=== PATIENT | male | born 1950 | race Caucasian/White ===

== ENCOUNTER 2023-05-20 09:28 | Outpatient (OUT) | payer MEDICARE, OTHER, SELFPAY ==
[2023-05-20 09:55] LABS: Hematocrit 43.8 % (42.0-54.0); Hemoglobin 14.2 g/dL (14.0-18.0)
[2023-05-20 10:40] LABS: Bilirubin Urine NEGATIVE (NEGATIVE); Blood Urine NEGATIVE (NEGATIVE); Clarity Urine CLEAR (CLEAR); Color Urine LT. YELLOW (YELLOW); Glucose Urine UA NEGATIVE (NEGATIVE); Ketones Urine NEGATIVE (NEGATIVE); Leukocyte Esterase Urine NEGATIVE (NEGATIVE); Nitrite Urine NEGATIVE (NEGATIVE); Protein Urine NEGATIVE (NEG/TRACE); Specific Gravity Urine 1.015 (1.005-1.025); Urobilinogen Urine 0.2 EU/dL (0.2-1.0); pH Urine 5.5 (5.0-9.0)
[2023-05-20 10:42] LABS: Creatinine Urine Random 32.91 mg/dL (20.00-300.00); Protein Creatinine Ratio Urine 0.18; Total Protein Urine Random <6.0 mg/dL (<=11.9)
[2023-05-20 10:47] LABS: Alanine Aminotransferase 24 U/L (16-63); Albumin Globulin Ratio 0.9; Albumin Level 3.8 g/dL (3.4-5.0); Alkaline Phosphatase 117 U/L (46-116); Aspartate Amino Transferase 23 U/L (15-37); BUN Creatinine Ratio 19.2; Bilirubin Total 0.9 mg/dL (0.2-1.0); Calcium 9.3 mg/dL (8.5-10.1); Carbon Dioxide 30.3 mmol/L (21.0-32.0); Chloride 100 mmol/L (98-107); Estimated GFR (African America 25 (>=60); Estimated GFR (Non-African Ame 21 (>=60); Globulin 4.2 g/dL; Glucose 129 mg/dL (74-106); Magnesium 2.7 mg/dL (1.8-2.4); Phosphorus 3.7 mg/dL (2.6-4.7); Potassium 4.3 mmol/L (3.5-5.1); Sodium 135 mmol/L (136-145)
== END 2023-05-20 09:29 | disposition home or self-care (01) ==
LOC: LAB 09:34
PROVIDERS: PCP Family Medicine; Visit Provider Internal Medicine Nephrology
DX: I13.0 Hypertensive heart and chronic kidney disease with heart failure and stage 1 through stage 4 chronic kidney disease, or unspecified chronic kidney disease (principal); N18.4 Chronic kidney disease, stage 4 (severe); I50.20 Unspecified systolic (congestive) heart failure; Z95.0 Presence of cardiac pacemaker; E55.9 Vitamin D deficiency, unspecified; E21.3 Hyperparathyroidism, unspecified; E79.0 Hyperuricemia without signs of inflammatory arthritis and tophaceous disease; N28.1 Cyst of kidney, acquired
CPT/HCPCS: 36415; 80053; 81003; 82306; 82570; 83735; 84100; 84156; 84550; 85014; 85018

== ENCOUNTER 2023-08-14 09:30 | Outpatient (OUT) | payer MEDICARE, OTHER, SELFPAY ==
[2023-08-14 10:39] LABS: Hematocrit 43.5 % (42.0-54.0); Hemoglobin 13.8 g/dL (14.0-18.0); Mean Corpuscular HGB Conc 31.7 g/dL (29.9-35.2); Mean Corpuscular Hemoglobin 29.2 pg (25.9-34.0); Mean Corpuscular Volume 92.2 fL (80.0-94.0); Mean Platelet Volume 9.8 fL (9.5-13.5); Platelet Count 175 10^3/uL (150-450); Red Blood Count 4.72 10^6/uL (4.70-6.10); Red Cell Distribution Width 15.6 % (11.0-15.0); White Blood Count 7.2 10^3/uL (4.0-11.0)
[2023-08-14 10:43] LABS: Bilirubin Urine NEGATIVE (NEGATIVE); Blood Urine NEGATIVE (NEGATIVE); Clarity Urine CLEAR (CLEAR); Color Urine YELLOW (YELLOW); Glucose Urine UA NEGATIVE (NEGATIVE); Ketones Urine NEGATIVE (NEGATIVE); Leukocyte Esterase Urine NEGATIVE (NEGATIVE); Nitrite Urine NEGATIVE (NEGATIVE); Protein Urine NEGATIVE (NEG/TRACE); pH Urine 5.5 (5.0-9.0)
[2023-08-14 10:52] LABS: Creatinine Urine Random 118.89 mg/dL (20.00-300.00); Protein Creatinine Ratio Urine 0.17; Total Protein Urine Random 20.2 mg/dL (<=11.9)
[2023-08-14 11:51] LABS: Alanine Aminotransferase 20 U/L (16-63); Albumin Globulin Ratio 0.9; Albumin Level 3.7 g/dL (3.4-5.0); Alkaline Phosphatase 115 U/L (46-116); Anion Gap 10.9; Aspartate Amino Transferase 20 U/L (15-37); BUN Creatinine Ratio 21.4; Bilirubin Total 1.1 mg/dL (0.2-1.0); Calcium 9.3 mg/dL (8.5-10.1); Carbon Dioxide 29.6 mmol/L (21.0-32.0); Chloride 100 mmol/L (98-107); Estimated GFR (African America 31 (>=60); Estimated GFR (Non-African Ame 25 (>=60); Globulin 4.2 g/dL; Glucose 118 mg/dL (74-106); Magnesium 2.6 mg/dL (1.8-2.4); Phosphorus 3.8 mg/dL (2.6-4.7); Potassium 4.5 mmol/L (3.5-5.1); Sodium 136 mmol/L (136-145); Total Protein 7.9 g/dL (6.4-8.2); Uric Acid 7.7 mg/dL (3.5-7.2)
[2023-08-15 11:09] LABS: PTH, Intact 50 pg/mL (15-65)
--- OUTSIDE RECORDS SUMMARY | 2023-08-27 03:02 | XMS_ITS | CCD ---
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 Orchestra Teacher Name Role Phone ZULMAANNELIESED Admitting Unavailable CULLEN COSTA Primary Care Unavailable LI CINTRON V Referring Unavailable DILLAN HARDY Attending Unavailable CULLEN COSTA Primary Care Unavailable CULLEN COSTA Referring Unavailable LI CINTRON V Admitting Unavailable LI CINTRON V Attending Unavailable SELF, REFERRED Primary Care Unavailable SELF, REFERRED Referring Unavailable FLOR BIGGS Admitting Unavailable CYRUS ASHLEY Attending Unavailable MD Cullen Costa Primary Care Provider [phone] DO Balwinder Chavarria Emergency Provider Cullen Theodore Primary Care Unavailable Balwinder Chavarria Attending Unavailable Balwinder Chavarria Admitting Unavailable Dedra Mendoza Unavailable DEDRA MENDOZA Attending Unavailable DEDRA MENDOZA Admitting Unavailable IGOR, DR CULLEN Felton Primary Care Unavailable SATURNINO, DR ZE Moraes Consulting Unavailable DEDRA MENDOZA Consulting Unavailable RIAZ, DR JEFFERSON Attending Unavailable RIAZ, DR JEFFERSON Admitting Unavailable IGOR, DR CULLEN Felton Primary Care Unavailable CYNTHIA PALMA Attending Unavailable CYNTHIA PALMA Admitting Unavailable IGOR, DR CULLEN Felton Primary Care Unavailable CYNTHIA PALMA Consulting Unavailable GAGE SIMPSON Attending Unavailable GAGE SIMPSON Admitting Unavailable IGOR, DR CULLEN Felton Primary Care Unavailable GAGE SIMPSON Consulting Unavailable LANA, DR CAASS Attending Unavailable LANA, DR CASAS Admitting Unavailable IGOR, DR CULLEN Felton Primary Care Unavailable LANA, DR CASAS Consulting Unavailable HARRIS, DR TIGIST Pendleton Attending Unavailable DR TIGIST IGLESIAS Admitting Unavailable SELENA ., DR JACOBO Procedure Practitioner Unavail able COSTA, DR CULLEN Felton Primary Care Unavailable HOY ., DR JACOBO Consulting Unavailable WEST, DR ZE Moraes Consulting Unavailable ZIEBER, DR CARSON Ace Consulting Unavailable NADEREDb, DR TIGIST Pendleton Consulting Unavailable HAY ., DR CHI Consulting Unavailable RAFAEL, SUNSHINE Consulting Unavailable REINECK, DR DELBERT Brown Attending Unavailabl e REINECK, DR DELBERT Brown Admitting Unavailabl e REINECK, DR DELBERT Brown Consulting Unavailabl e COSTA, DR CULLEN Felton Primary Care Unavailable BUTCH ., EDWARD Consulting Unavailable JASON, ZE Consulting Unavailable HIGHLANDER, MIS Dye Admitting Unavailable HIGHLANDER, MIS Dye Attending Unavailable COSTA, DR CULLEN Felton Primary Care Unavailable HIGHLANDER, MIS Dye Attending Unavailable HIGHLANDER, MIS Dye Admitting Unavailable COSTA, DR CULLEN Felton Primary Care Unavailable HIGHLANDER, MIS Dye Attending Unavailable HIGHLANDERMIS Admitting Unavailable COSTA, DR CULLEN Felton Primary Care Unavailable CLOUGHERTYSHANNAN Admitting Unavailabl e COSTA, DR CULLEN Felton Primary Care Unavailable CLOUGHERTYSHANNAN Attending Unavailabl e CLOUGHERTY, SAHNNAN Kaur Attending Unavailabl e CLOUGHERTYSHANNAN O Admitting Unavailabl e COSTA, DR UCLLEN Felton Primary Care Unavailable HIGHLANDER, MIS Dye Admitting Unavailable HIGHLANDER, MIS Dye Attending Unavailable COSTA, DR CULLEN Felton Primary Care Unavailable HIGHLANDER, MIS Dye Admitting Unavailable HIGHLANDER, MIS Dye Attending Unavailable COSTA, DR CULLEN Felton Primary Care Unavailable VIOLETA VILLAREAL Admitting Unavailable KATDAVIS, VIOLETA Dye Attending Unavailable ZIENIO, DR CARSON Ace Consulting Unavailable COSTA, DR CULLEN Felton Primary Care Unavailable KATKOVIOLETA Consulting Unavailable MOUKARBEL, DR JEFFERSON Attending Unavailable COSTA, DR CULLEN Felton Primary Care Unavailable MOUKARBEL, DR JEFFERSON Consulting Unavailable MOUKARBEL, DR JEFFERSON Admitting Unavailable MOUKARBEL, DR JEFFERSON Consulting Unavailable COSTA, DR CULLEN Felton Primary Care Unavailable MOUKARBEL, DR JEFFERSON Admitting Unavailable MOUKARBEL, DR JEFFERSON Attending Unavailable PAY ., DR ECHEVARRIA Admitting Unavailable ZIEBER, DR CARSON Ace Consulting Unavailable COSTA, DR CULLEN Felton Primary Care Unavailable PAY ., DR ECHEVARRIA Attending Unavailable BUTCH ., EDWARD Consulting Unavailable NEFCY, MIS Consulting Unavailable JAMESEREDb, DR TIGIST Pendleton Attending Unavailable NADEREDb, DR TIGIST Pendleton Admitting Unavailable COSTA, DR CULLEN Felton Primary Care Unavailable HARRIS, DR TIGIST Pendleton Consulting Unavailable INDIALANTIC ., DR CHI Consulting Unavailable [facility], MIS Consulting Unavailable TIFFANIE SALGADO Consulting Unavailable WEST [place], DR ZE Moraes Attending Unavailable WEST [place], DR ZE Moraes Admitting Unavailable [facility] MEDIEROS Primary Care Unavailable EMETERIO, MIS Dye Attending Unavailable MIS STORM Admitting Unavailable IGOR, DR CULLEN Felton Primary Care Unavailable DEDRA MENDOZA Attending Unavailable DEDRA MENDOZA Admitting Unavailable DEDRA MENDOZA Consulting Unavailable IGOR, DR CULLEN Felton Primary Care Unavailable Cullen Costa Unavailable GAGE SIMPSON Referring Unavailable DIOGO NGUYEN Attending Unavailable GAGE SIMPSON Referring Unavailable LI CINTRON Attending Unavailable PHILIP ANDRE Attending Unavailable Allergies Allergy Classification Reported Allergen(s) Allergy Type Date of Onset Reaction(s) Facility (3 sources) patient allergy list reviewed by nurse or physicia Propensity to adverse reactions Comment:Done [employer] Other (3 sources) Allergies Reconciled Propensity to adverse reactions Unknown [employer] Other Medications Current Medications Medication Drug Class(es) Dates Sig (Normalized) Sig (Original) allopurinol 100 mg oral tablet (2 sources) Xanthine Oxidase Inhibitor Start: 05-27-2023 take 1 tablet by mouth every twenty-four hours Allopurinol 100 MG 1 tablet Orally Once a day for 90 days May, Active amiodarone hydrochloride 200 mg oral tablet (6 sources) Antiarrhythmic Start: 06-27-2022 take 200 mg by mouth once daily Amiodarone Active 200 MG PO Daily June 27, 2022 12:00am apixaban 5 mg oral tablet (6 sources) Factor Xa Inhibitor Start: 06-27-2022 take 1 tablet by mouth twice daily Apixaban (Eliquis) 5 mg Tablet Active 5 MG PO Twice daily June 27, 2022 12:00am Aspir-81 81 MG (5 sources) take 1 tablet by mouth once daily Aspir-81 81 MG 1 tablet Orally Once a day Active atorvastatin 80 mg oral tablet (6 sources) HMG-CoA Reductase Inhibitor Start: 06-27-2022 take 80 mg by mouth once daily at bedtime Atorvastatin Active 80 MG PO Daily at bedtime June 27, 2022 12:00am bumetanide 2 mg oral tablet (6 sources) Loop Diuretic Start: 06-27-2022 take 1 tablet by mouth twice daily Bumetanide (Bumex) 2 mg Tablet Active 3 MG PO Twice daily June 27, 2022 12:00am take 3 tablets by mo [facility] every twelve hours Bumetanide 1 MG 3 tablet Orally TWICE A DAY Active Cholecalciferol (4 sources) Vitamin D Start: 12-10-2022 take 1 capsule by mouth once daily Cholecalciferol 25 MCG (1000 UT) 1 capsule Orally Once a day for 90 days Dec, Active take 1 capsule by mouth once [place] [place] Cholecalciferol 25 MCG (1000 UT) 1 capsule Orally Once a day for 90 days Active docusate sodium 100 mg oral tablet (2 sources) Start: 06-27-2022 take 100 mg by mouth three times daily Docusate Sodium Active 100 MG PO Three times daily June 27, 2022 12:00am take 1 capsule by [facility] every twenty-four hours Colace 100 MG 1 capsule as needed Orally Once a day Active doxycycline hyclate 100 mg oral capsule (1 source) Tetracycline-class Drug Start: 06-27-2022 take 100 mg by mouth twice daily Doxycycline Hyclate Active 100 MG PO Twice daily 27 06June 27, 2022 12:00am hydrALAZINE hydrochloride 10 mg oral tablet (6 sources) Arteriolar Vasodilator Start: 06-27-2022 take 10 mg by mouth three times daily Hydralazine Active 10 MG PO Three times daily June 27, 2022 12:00am take 1 tablet by [place] every twelve hours hydrALAZINE HCl 10 MG 1 tablet with food Orally Twice a day Active isosorbide dinitrate 10 mg oral tablet (8 sources) Nitrate Vasodilator Start: 06-27-2022 take 10 mg by mouth three times daily Isosorbide Dinitrate Active 10 MG PO Three times daily June 27, 2022 12:00am allow nitrate-free interval of 12-14 hrs per 24-hr period 24 hr metoprolol succinate 50 mg extended release oral tablet (6 sources) beta-Adrenergic Demarco Start: 06-27-2022 take 25 mg by mouth once daily Metoprolol Succinate Active 25 MG PO Daily June 27, 2022 12:00am take 0.5 tablet by mouth once da michael Metoprolol Succinate ER 25 MG TAKE 1/2 TABLET BY MOUTH ONCE DAILY for 90 Active potassium chloride 20 meq extended release oral tablet (5 sources) take 1 tablet by mouth every twenty-four hours Potassium Chloride ER 20 MEQ 1 tablet with food Orally Once a day for 90 days Active spironolactone 25 mg oral tablet (6 sources) Aldosterone Antagonist Start: take 25 mg by mouth once daily Spironolactone Active 25 MG PO Daily June 27, 2022 12:00am Problems Active Problems Problem Classification Problem Date Documented Da te Episodic/Chronic Cardiac dysrhythmias (6 sources) Paroxysmal atrial fibrillation; Translations: [Paroxysmal atrial fibrillation] Onset: 07-18-2022 Chronic Chronic kidney disease (16 sources) Chronic kidney disease stage 4; Translations: [Chronic kidney disease, stage 4 (severe)] Onset: 04-26-2022 Chronic Chronic kidney disease (1 source) Chronic kidney disease; Translations: [CHRONIC KIDNEY DISEASE STAGE 3B] Onset: 12-21-2021 Chronic ulcer of skin (2 sources) 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; Translations: [Non-pressure chronic ulcer of right calf limited to breakdown of skin] Onset: 01-04-2022 Chronic Complication of device; implant or graft (2 sources) Atherosclerosis of coronary artery bypass graft(s) without angina pectoris; Translations: [Atherosclerosis of coronary artery bypass graft(s) without angina pectoris] Onset: 08-28-2022 Chronic Conduction disorders (16 sources) Cardiac pacemaker in situ; Translations: [Presence of cardiac pacemaker] Onset: 11-18-2022 Chronic Congestive heart failure; nonhypertensive (20 sources) Congestive heart failure; Translations: [Unspecified systolic (congestive) heart failure] Onset: 12-21-2021 Chronic Coronary atherosclerosis and other heart disease (8 sources) Atherosclerotic heart disease of [place] coronary artery without angina pectoris; Translations: [Atherosclerosis of coronary artery without angina pectoris] Onset: 07-18-2022 Chronic Disorders of lipid metabolism (5 sources) Pure hypercholesterolemia, unspecified; Translations: [Hyperlipidemia, unspecified] Onset: 05-06-2013 Chronic Essential hypertension (14 sources) Essential hypertension; Translations: [Essential (primary) hypertension] Onset: 01-04-2022 Chronic Gout and other crystal arthropathies (4 sources) Gout, unspecified; Translations: [Primary gout] Onset: 05-09-2016 Chronic Headache; including migraine (1 source) Headache; including migraine; Translations: [HEADACHE UNSPECIFIED] Onset: 04-04-2022 Hypertension with complications and secondary hypertension (7 sources) Hypertensive heart and chronic kidney disease with heart failure and stage 1 through stage 4 chronic kidney disease, or unspecified chronic kidney disease; Translations: [Hypertensive chronic kidney disease with stage 1 through stage 4 chronic kidney disease, or unspecified chronic kidney disease] Onset: 03-17-2022 Chronic Mycoses (3 sources) Candidiasis of skin and nails; Translations: [Candidiasis of skin and nail] Episodic Nutritional deficiencies (6 sources) Vitamin D deficiency; Translations: [Vitamin D deficiency, unspecified] Chronic Open wounds of extremities (4 sources) Unspecified open wound, left lower leg, sequela; Translations: [Open wound of knee and/or leg and/or ankle] Onset: 04-12-2022 Episodic Other circulatory disease (3 sources) Elevated blood-pressure reading without diagnosis of hypertension; Translations: [Elevated blood-pressure reading, without diagnosis of hypertension] Episodic Other diseases of kidney and ureters (3 sources) Cyst of kidney, acquired; Translations: [CYST OF KIDNEY ACQUIRED] Onset: 11-30-2022 Episodic Other diseases of veins and lymphatics (1 source) Lymphedema, not elsewhere classified; Translations: [LYMPHEDEMA NOT ELSEWHERE CLASSIFIED] Onset: 04-12-2022 Chronic Other diseases of veins and lymphatics (5 sources) 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; Translations: [CHRON VENOUS HTN W/ULCER RT LW EXT] Onset: 01-21-2022 Chronic Other diseases of veins and lymphatics (3 sources) Lymphedema; Translations: [Lymphedema, not elsewhere classified] Chronic Other diseases of veins and lymphatics (5 sources) Peripheral venous insufficiency; Translations: [Venous insufficiency (chronic) (peripheral)] Episodic Other endocrine disorders (4 sources) Hyperparathyroidism; Translations: [Hyperparathyroidism, unspecified] Chronic Other endocrine disorders (2 sources) Hyperparathyroidism, unspecified Chronic Other inflammatory condition of skin (1 source) Erythematous condition, unspecified; Translations: [Erythematous condition, unspecified] Onset: 06-27-2022 Episodic Other nutritional; endocrine; and metabolic disorders (5 sources) Morbid obesity; Translations: [Morbid (severe) obesity due to excess calories] Chronic Other nutritional; endocrine; and metabolic disorders (1 source) Morbid (severe) obesity due to excess calories; Translations: [MORBID SEVERE OBES D/T EXCESS KELLY] Onset: 04-04-2022 Chronic Other nutritional; endocrine; and metabolic disorders (1 source) Body mass index (BMI) 45.0-49.9, adult; Translations: [BODY MASS INDEX BMI 45.0-49.9 ADULT] Onset: 12-21-2021 Chronic Other nutritional; endocrine; and metabolic disorders (6 sources) Body mass index 40+ - severely obese; Translations: [Body mass index (BMI) 40.0-44.9, adult] Chronic Other nutritional; endocrine; and metabolic disorders (2 sources) Hyperuricemia without signs of inflammatory arthritis and tophaceous disease Episodic Phlebitis; thrombophlebitis and thromboembolism (1 source) Chronic embolism and thrombosis of right femoral vein; Translations: [CHRON EMBO THROMB RT FEMORAL VEIN] Onset: 12-21-2021 Chronic Phlebitis; thrombophlebitis and thromboembolism (5 sources) Acute embolism and thrombosis of unspecified deep veins of right lower extremity; Translations: [Personal history of other venous thrombosis and embolism] Onset: 01-21-2022 Episodic Residual codes; unclassified (3 sources) Tobacco user; Translations: [Tobacco use] Episodic Residual codes; unclassified (3 sources) Edema; Translations: [Edema] Episodic Septicemia (except in labor) (3 sources) Sepsis due to Pseudomonas; Translations: [Sepsis due to Pseudomonas] Episodic Skin and subcutaneous tissue infections (12 sources) Cellulitis; Translations: [Cellulitis, unspecified] Onset: 12-13-2021 06-27-2022 Episodic Unclassified (1 source) CONTACT W/AND (SUSP) EXPOS COVID-19; Translations: [CONTACT W/AND (SUSP) EXPOS COVID-19] Onset: 07-18-2022 Unclassified (1 source) CHRN KIDNEY DISEASE STG 3 UNSP; Translations: [CHRN KIDNEY DISEASE STG 3 UNSP] Onset: 01-29-2022 Varicose veins of lower extremity (8 sources) Pain co-occurrent and due to varicose veins of bilateral legs; Translations: [Varicose veins of bilateral lower extremities with pain] Onset: 03-08-2015 Episodic Past or Other Problems Problem Classification Problem Date Documented Da te Episodic/Chronic Acute and unspecified renal failure (1 source) Acute kidney failure, unspecified; Translations: [ACUTE KIDNEY FAILURE UNSPECIFIED] Onset: 12-21-2021 Episodic Bacterial infection; unspecified site (2 sources) Bacteremia; Translations: [Pseudomonas (aeruginosa) (mallei) (pseudomallei) as the cause of diseases classified elsewhere] Onset: 12-21-2021 Episodic Coronary atherosclerosis and other heart disease (1 source) Presence of aortocoronary bypass graft; Translations: [PRESENCE AORTOCORONARY BYPASS GRAFT] Onset: 07-18-2022 Episodic E Codes: Fall (1 source) Fall on same level, unspecified, initial encounter; Translations: [FALL SAME LEVEL UNSPECIFIED INITIAL] Onset: 04-04-2022 Episodic Fluid and electrolyte disorders (1 source) Dehydration; Translations: [DEHYDRATION] Onset: 07-18-2022 Episodic Malaise and fatigue (4 sources) Weakness; Translations: [WEAKNESS] Onset: 04-01-2022 Episodic Other aftercare (1 source) 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; Translations: [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 CURRENT USE OF ASPIRIN] Onset: 07-18-2022 Episodic Other aftercare (1 source) Other extermination supervisor (current) drug therapy; Translations: [OTH JAIL CURRENT DRUG THERAPY] Onset: 07-18-2022 Episodic Other aftercare (1 source) assistant terminal manager (current) use of anticoagulants; Translations: [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 CURRNT USE ANTICOAGULANTS] Onset: 04-26-2022 Episodic Other connective tissue disease (4 sources) Other specified soft tissue disorders; Translations: [Other specified soft tissue disorders] Onset: 04-24-2022 Episodic Other diseases of veins and lymphatics (1 source) Venous insufficiency (chronic) (peripheral); Translations: [VENOUS INSUFF CHRONIC PERIPHERAL] Onset: 04-12-2022 Episodic Other lower respiratory disease (4 sources) Shortness of breath; Translations: [SHORTNESS OF BREATH] Onset: 04-04-2022 Episodic Other skin disorders (5 sources) Other specified disorders of the skin and subcutaneous tissue; Translations: [OTH SPEC D/O SKIN AND SUBQ TISSUE] Onset: 03-17-2022 Episodic Other skin disorders (1 source) Disorder of the skin and subcutaneous tissue, unspecified; Translations: [DISORDER SKIN AND SUBQ TISSUE UNS] Onset: 03-17-2022 Episodic Residual codes; unclassified (1 source) Generalized edema; Translations: [GENERALIZED EDEMA] Onset: 04-12-2022 Episodic Residual codes; unclassified (4 sources) Edema, unspecified; Translations: [EDEMA UNSPECIFIED] Onset: 04-02-2022 Episodic Residual codes; unclassified (1 source) Localized edema; Translations: [LOCALIZED EDEMA] Onset: 01-21-2022 Episodic Superficial injury; contusion (1 source) Blister (nonthermal), right lower leg, initial encounter; Translations: [BLISTER NONTHERMAL RT LOW LEG INIT] Onset: 01-29-2022 Episodic Results Test Name Value Interpretation Reference Range Facil ity Office Visiton 05-07-2023 Follow-up visit [id number] Man Patel 1950 M Date Provider Department Center 05/07/[address] [facility] Family History Problem Relation Age of Onset Coronary artery disease Mother Hyperlipidemia Mother Hypertension Mother Stroke Mother Diabetes Mother Coronary artery disease Father Hyperlipidemia Father Hypertension Father Family Status - Relation Status Age at Mother Father Level of Service:71581 NM OFFICE/OUTPATIENT ESTABLISHED MOD MDM 30-39 MIN Normal [facility] PTH INTACTon 12-04-2022 PTH, Intact 66 pg/mL Critically high 15-65 [facility] Comment on above: Performed By: #### P THINT ####[facility] [address] [place] [address]DrLatoya Anthony HEMOGRAM AND PLATELon 2022 Hematocrit (Bld) [Volume fraction] 43.4 % Normal 4 2.0-54.0 [facility] Comment on above: Performed By: #### H H ####[facility] [address] [place] [address]DrLatoya Anthony Hemoglobin (Bld) [Mass/Vol] 14.1 g/dL Normal 14.0-18. 0 [facility] Comment on above: Performed By: #### H H ####[facility] [address] [place] [address]DrLatoya Anthony MCH (RBC) [Entitic mass] 28.2 pg Normal 25.9-34.0 [facility] Comment on above: Performed By: #### H H ####[facility] [address] [place] [address]Dr. Elba Anthony MCHC (RBC) [Mass/Vol] 32.5 g/dL Normal 29.9-35.2 [facility] Comment on above: Performed By: #### H H ####[facility] [address] [place], [place] [address]Dr. Elba Anthony MCV (RBC) [Entitic vol] 86.8 fL Normal 80.0-94.0 [facility] Comment on above: Performed By: #### H H ####[facility] [address] [place], [place] [address]Dr. Elba Anthony PLT 170 103/ul Normal 150-450 [facility] Comment on above: Performed By: #### H H ####[facility] [address] [place], [place] [address]Dr. Elba Anthony RBC 5.00 106/ul Normal 4.70-6.10 [facility] Comment on above: Performed By: #### H H ####[facility] [address] [place], [place] [address]Dr. Elba Anthony WBC 7.2 103/ul Normal 4.0-11.0 [facility] Comment on above: Performed By: #### H H ####[facility] [address] [place], [place] [address]Dr. Elba Anthony MAGNESIUMon 12-03-2022 Magnesium [Mass/Vol] 2.6 mg/dL Critically high 1.8-2.4 [facility] Comment on above: Performed By: #### C MP, URIC, PHOS, MG ####[facility] [address] [place], [place] [address]Dr. Elba Anthony PHOSPHORUSon 12-03-2022 Phosphate [Mass/Vol] 3.9 mg/dL Normal 2.6-4.7 [facility] Comment on above: Performed By: #### C MP, URIC, PHOS, MG ####[facility] [address] [place] [address]Dr. Elba Anthony PROF 14(COMP METB)on 023 Albumin [Mass/Vol] 4.0 g/dL Normal 3.4-5.0 [facility] Comment on above: Performed By: #### C MP, URIC, PHOS, MG ####[facility] [address] [place] [address]Dr. Elba Anthony Albumin/Globulin [Mass ratio] 0.9 {ratio} Normal [facility] Comment on above: Performed By: #### C MP, URIC, PHOS, MG ####[facility] [address] [place] [address]Dr. Elba Anthony ALP [Catalytic activity/Vol] 159 U/L Critically high 46 -116 [facility] Comment on above: Performed By: #### C MP, URIC, PHOS, MG ####[facility] [address] [place], [place] [address]Dr. Elba Anthony ALT [Catalytic activity/Vol] 33 U/L Normal 16-63 [facility] Comment on above: Performed By: #### C MP, URIC, PHOS, MG ####[facility] [address] [place] [address]Dr. Elba Anthony Anion gap [Moles/Vol] 15.2 mmol/L Normal [facility] Comment on above: Performed By: #### C MP, URIC, PHOS, MG ####[facility] [address] [place] [address]Dr. Elba Anthony AST [Catalytic activity/Vol] 27 U/L Normal 15-37 [facility] Comment on above: Performed By: #### C MP, URIC, PHOS, MG ####[facility] [address] [place] [address]Dr. Elba Anthony Bilirubin [Mass/Vol] 0.9 mg/dL Normal 0.2-1.0 [facility] Comment on above: Performed By: #### C MP, URIC, PHOS, MG ####[facility] [address] [place] [address]Dr. Elba Anthony Calcium [Mass/Vol] 9.8 mg/dL Normal 8.5-10.1 [facility] Comment on above: Performed By: #### C MP, URIC, PHOS, MG ####[facility] [address] [place] [address]Dr. Elba Anthony Chloride [Moles/Vol] 102 mmol/L Normal 98-107 [facility] Comment on above: Performed By: #### C MP, URIC, PHOS, MG ####[facility] [address] [place] [address]Dr. Elba Anthony CO2 [Moles/Vol] 30.5 mmol/L Normal 21.0-32.0 [facility] Comment on above: Performed By: #### C MP, URIC, PHOS, MG ####[facility] [address] [place], [place] [address]Dr. Elba Anthony Creatinine [Mass/Vol] 2.63 mg/dL Critically high 0.70-1.30 [facility] Comment on above: Performed By: #### C MP, URIC, PHOS, MG ####[facility] [address] [place], [place] [address]Dr. Elba Anthony EGFR-AF CONGOLESE 29 mL/min/1.73m2 Critically low >=60 [facility] Comment on above: Performed By: #### C MP, URIC, PHOS, MG ####[facility] [facility] [address] [place], [place] [address]Dr. Elba Anthony EGFR-NON AF CONGOLESE 24 mL/min/1.73m2 Critically low >=60 [facility] Comment on above: Performed By: #### C MP, URIC, PHOS, MG ####[facility] Cxmvauqwva[address] [place], [place] [address]Dr. Elba Anthony Globulin (S) [Mass/Vol] 4.5 g/dL Normal [facility] Comment on above: Performed By: #### C MP, URIC, PHOS, MG ####[facility] Gxxkobexif[address] [place], [place] [address]Dr. Elba Anthony Glucose [Mass/Vol] 122 mg/dL Critically high 74-106 [facility] Comment on above: Performed By: #### C MP, URIC, PHOS, MG ####[facility] J[address]ixuc[address] [place] [address]Dr. Elba Anthony Potassium [Moles/Vol] 4.7 mmol/L Normal 3.5-5.1 [facility] Comment on above: Performed By: #### C MP, URIC, PHOS, MG ####[facility] Bbxzmtalhu[address] [place] [address]Dr. Elba Anthony Protein [Mass/Vol] 8.5 g/dL Critically high 6.4-8.2 [facility] Comment on above: Performed By: #### C MP, URIC, PHOS, MG ####[facility] Qgetntogoh[address] [place] [address]Dr. Elba Anthony Sodium [Moles/Vol] 143 mmol/L Normal 136-145 [facility] Comment on above: Performed By: #### C MP, URIC, PHOS, MG ####[facility] Budrwtkvso[address] [place] [address]Dr. Nereydasiobhan Anthony Urea nitrogen [Mass/Vol] 59.0 mg/dL Critically high 7.0-18 .0 [facility] Comment on above: Performed By: #### C MP, URIC, PHOS, MG ####[facility] Qsstnfnpig[address] [place] [address]Dr. Elba Anthony Urea nitrogen/Creatinine [Mass ratio] 22.4 mg/mg Normal [facility] Comment on above: Performed By: #### C MP, URIC, PHOS, MG ####[facility] Iouqoguztw[address] [place] [address]Dr. Elba Anthony UA RANDOMon 12-03-2022 Bilirubin Ql (U) Negative Normal NEGATIVE [facility] Comment on above: Performed By: #### U A ####[facility] Oxukddcogd4[address] [place] [address]Dr. Elba Anthony Clarity (U) CLEAR Normal CLEAR [facility] Comment on above: Performed By: #### U A ####[facility] Wvtvnzgrqd25[address] [place] [address]Dr. Elba Anthony Color (U) LT. YELLOW Normal YELLOW [facility] Comment on above: Performed By: #### U A ####[facility] Isnfmjumcw[address] [place], [place] [address]Dr. Elba Anthony Glucose Ql (U) Negative Normal NEGATIVE [facility] Comment on above: Performed By: #### U A ####[facility] Gabhdvseno[address] [place], [place] [address]Dr. Elba Anthony Hemoglobin Ql (U) Negative Normal NEGATIVE [facility] Comment on above: Performed By: #### U A ####[facility] Txoiwokfng[address] [place], [place] [address]Dr. Elba Anthony Ketones Ql (U) Negative Normal NEGATIVE [facility] Comment on above: Performed By: #### U A ####[facility] Voohadfmhn7035[address] [place], [place] [address]Dr. Elba Anthony LEUKOCYTES Negative Normal NEGATIVE [facility] Comment on above: Performed By: #### U A ####[facility] Jysogqcwgn0569[address] [place], [place] [address]Dr. Elba Anthony Nitrite Ql (U) Negative Normal NEGATIVE [facility] Comment on above: Performed By: #### U A ####[facility] Jqxxqydbpn098[address] [place], [place] [address]Dr. Elba Anthony pH (U) 7.0 [pH] Normal 5-9 [facility] Comment on above: Performed By: #### U A ####[facility] Bkkrylfzgm5264[address] [place], [place] [address]Dr. Elba Anthony SPEC GRAVITY <=1.005 Abnormal 1.005-<=1.025 [facility] Comment on above: Performed By: #### U A ####[facility] Zfuovucvad94[address] [place], [place] [address]Dr. Elba Anthony UA PROTEIN TRACE Normal NEGATIVE/ TRACE [facility] Comment on above: Performed By: #### U A ####[facility] Ddijhjgeyu17[address] [place] [address]Dr. Elba Anthony Urobilinogen Qn (U) 2.0 {Caden'U}/dL Abnormal 0.2 - 1. 0 [facility] Comment on above: Performed By: #### U A ####[facility] Lknoxqmmda7[address] [place] [address]Dr. Elba Anthony URIC ACID SERUMon 12-03-2022 Urate [Mass/Vol] 9.0 mg/dL Critically high 3.5-7.2 [facility] Comment on above: Performed By: #### C MP, URIC, PHOS, MG ####[facility] Pbbbqeqozm[address] [place], [place] [address]Dr. Elba Anthony URINE T PROTEIN CREAT RATIOo n 12-03-2022 Protein (U) [Mass/Vol] 26.9 mg/dL Critically high <=12.0 [facility] Comment on above: Performed By: #### U RTPCR ####[facility] Nmcmxemyvh1832[address] [place], [place] [address]Dr. Elba Anthony UR PROT CREAT RAT 0.33 Normal [facility] Comment on above: Performed By: #### U RTPCR ####[facility] Ngxpafucww160[address] [place], [place] [address]Dr. Elba Anthony URINE CREAT 82.74 mg/dL Normal 20.00-300.00 [facility] Comment on above: Performed By: #### U RTPCR ####[facility] Vbdimekhkc6911[address] [place], [place] [address]Dr. Elba Anthony VITAMIN D 25 OHon 12-03-2022 VIT D 25-OH 14.7 ng/mL Normal [facility] Comment on above: Performed By: #### V ITAD ####[facility] Pkhqpfdvob[address] [place], [place] [address]Dr. Elba Anthony VIT D RANGES SEE BELOW Normal [facility] Comment on above: Result Comment: <20 ng/mL Vit D deficient 20 - <30 ng/mL Vit D insufficient 30 - 100 ng/mL Vit D sufficient >100 ng/mL Potential Toxicity Performed By: #### V ITAD ####[facility] Mmbaoqtynv9[address] [place] [address]Dr. Elba Anthony US KIDNEYSon 11-27-2022 US KIDNEYS Normal [facility] Office Visiton 11-18-2022 Follow-up visit [id number] Man Patel 1950 [facility] Provider Department Center 11/18/[address] [facility] Family History Problem Relation Age of Onset Coronary artery disease Mother Hyperlipidemia Mother Hypertension Mother Stroke Mother Diabetes Mother Coronary artery disease Father Hyperlipidemia Father Hypertension Father Family Status - Relation Status Age at Mother Father Level of Service:49917 NM OFFICE/OUTPATIENT ESTABLISHED LOW MDM 20-29 MIN Reason for Visit and Comments: Congestive Heart Failure [127] Atrial Fibrillation [80] Normal [facility] Office Visiton 08-26-2022 Follow-up visit [id number] Man Patel 1950 [facility] Provider Department Center 08/26/[address] [facility] Family History Problem Relation Age of Onset Coronary artery disease Mother Hyperlipidemia Mother Hypertension Mother Stroke Mother Diabetes Mother Coronary artery disease Father Hyperlipidemia Father Hypertension Father Family Status - Relation Status Age at Mother Father Level of Service:12215 NM OFFICE/OUTPATIENT ESTABLISHED MOD MDM 30-39 MIN Normal [facility] Orders Onlyon 08-07-2022 Orders Only [id number] Man Patel 1950 [facility] Provider Department Center 08/07/[address] [facility] Family History Problem Relation Age of Onset Coronary artery disease Mother Hyperlipidemia Mother Hypertension Mother Stroke Mother Diabetes Mother Coronary artery disease Father Hyperlipidemia Father Hypertension Father Family Status - Relation Status Age at Mother Father Normal [facility] PROF CHEM 8 (BAS METB)on Anion gap [Moles/Vol] 11.1 mmol/L Normal [facility] Comment on above: Performed By: #### B MP ####[facility] Wgxrmtmtnd30[address] [place] [address]DrLatoya Anthony Calcium [Mass/Vol] 9.0 mg/dL Normal 8.5-10.1 [facility] Comment on above: Performed By: #### B MP ####[facility] Wfamfoxudb3236 [place] [address]Dr. Nereydasiobhan Raj Chloride [Moles/Vol] 99 mmol/L Normal 98-107 [facility] Comment on above: Performed By: #### B MP ####[facility] Spsoodoumn5[address] [place], [place] [address]Dr. Elba Anthony CO2 [Moles/Vol] 30.3 mmol/L Normal 21.0-32.0 [facility] Comment on above: Performed By: #### B MP ####[facility] Gdrpsfcqxx23[address] [place], [place] [address]Dr. Nereydasiobhan Raj Creatinine [Mass/Vol] 2.43 mg/dL Critically high 0.70-1.30 [facility] Comment on above: Performed By: #### B MP ####[facility] Wscbrhfopx[address] [place], [place] [address]Dr. Nereydasiobhan Raj EGFR-AF CONGOLESE 32 mL/min/1.73m2 Critically low >=60 [facility] Comment on above: Performed By: #### B MP ####[facility] Teyofdxclz[address] [place], [place] [address]Dr. Nereydasiobhan Raj EGFR-NON AF CONGOLESE 27 mL/min/1.73m2 Critically low >=60 [facility] Comment on above: Performed By: #### B MP ####[facility] Dkaldhqjch6[address] [place], [place] [address]Dr. Elba Anthony Glucose [Mass/Vol] 142 mg/dL Critically high 74-106 [facility] Comment on above: Performed By: #### B MP ####[facility] Dgtsjvbhnf[address] [place], [place] [address]Dr. Elba Anthony Potassium [Moles/Vol] 4.4 mmol/L Normal 3.5-5.1 [facility] Comment on above: Performed By: #### B MP ####[facility] Ghycimxlbv[address] [place], [place] [address]Dr. Elba Anthony Sodium [Moles/Vol] 136 mmol/L Normal 136-145 [facility] Comment on above: Performed By: #### B MP ####[facility] Bnxemyxtuf73[address] [place] [address]Dr. Elba Anthony Urea nitrogen [Mass/Vol] 60.0 mg/dL Critically high 7.0-18 .0 [facility] Comment on above: Performed By: #### B MP ####[facility] Bvjqqrtstj[address] [place], [place] [address]Dr. Elba Anthony Urea nitrogen/Creatinine [Mass ratio] 24.7 mg/mg Normal [facility] Comment on above: Performed By: #### B MP ####[facility] Kdoxurvule87[address] [place], [place] [address]Dr. Elba Anthony CBC AUTO DIFFon 07-11-2022 BASO # 0.1 103/ul Normal 0.0-0.1 [facility] Comment on above: Performed By: #### C BC ####[facility] Llnkkandin[address] [place], [place] [address]Dr. Elba Anthony Basophils/100 WBC (Bld) 0.8 % Normal 0.2-2.0 [facility] Comment on above: Performed By: #### C BC ####[facility] Cbigjaiyay6[address] [place], [place] [address]Dr. Elba Anthony EO # 0.9 103/ul Critically high 0.0-0.7 [facility] Comment on above: Performed By: #### C BC ####[facility] Ncisfxwfmv24[address] [place], [place] [address]Dr. Elba Anthony Eosinophils/100 WBC (Bld) 13.7 % Critically high 0.9-7 .0 [facility] Comment on above: Performed By: #### C BC ####[facility] Ibhuzrbsnb[address] [place], [place] [address]Dr. Elba Anthony Erythrocyte distribution wid th (RBC) [Ratio] 20.8 % Critically high 11.0-15.0 [facility] Comment on above: Performed By: #### C BC ####[facility] Yaibqtrtzp4[address] [place] [address]Dr. Elba Anthony Hematocrit (Bld) [Volume fraction] 35.3 % Critically low 42.0-54.0 [facility] Comment on above: Performed By: #### C BC ####[facility] Cmdjsnkyog6418 [place] [address]Dr. Elba Anthony Hemoglobin (Bld) [Mass/Vol] 11.5 g/dL Critically low 14.0 -18.0 [facility] Comment on above: Performed By: #### C BC ####[facility] Oitjvacyzo[address] [place], [place] [address]Dr. Nereydasiobhan Anthony IG # 0.04 10e3/ul Critically high 0.00-0.03 [facility] Comment on above: Performed By: #### C BC ####[facility] Kztcyrnhsl470[address] [place], [place] [address]Dr. Elba Anthony IG % 0.6 % Critically high 0.0-0.5 [facility] Comment on above: Performed By: #### C BC ####[facility] Ycqdpzunoe8[address] [place], [place] [address]Dr. Elba Anthony LYMPH # 1.1 103/ul Critically low 1.2-3.8 [facility] Comment on above: Performed By: #### C BC ####[facility] Edaltccvud[address]99 [place] [address]Dr. Elba Anthony Lymphocytes/100 WBC (Bld) 17.2 % Critically low 20.5-6 0.0 [facility] Comment on above: Performed By: #### C BC ####[facility] Gdbuntneas7432 [place] [address]Dr. Nereydasiobhan Anthony MANUAL DIFF REQ NO Normal [facility] Comment on above: Performed By: #### C BC ####[facility] Wjsemysiva97[address] [place], [place] [address]Dr. Elba Anthony MCH (RBC) [Entitic mass] 27.9 pg Normal 25.9-34.0 [facility] Comment on above: Performed By: #### C BC ####[facility] Lozfuzjdif[address] [place] [address]Dr. Elba Anthony MCHC (RBC) [Mass/Vol] 32.6 g/dL Normal 29.9-35.2 [facility] Comment on above: Performed By: #### C BC ####[facility] [address]fqwucjx[address] [place], [place] [address]Dr. Elba Anthony MCV (RBC) [Entitic vol] 85.7 fL Normal 80.0-94.0 [facility] Comment on above: Performed By: #### C BC ####[facility] Evznlsyami[address] [place], [place] [address]Dr. Elba Anthony MONO # 0.8 103/ul Normal 0.3-0.8 [facility] Comment on above: Performed By: #### C BC ####[facility] Gmjulnqjgo037[address] [place], [place] [address]Dr. Nereydasiobhan Anthony Monocytes/100 WBC (Bld) 13.0 % Critically high 1.7-12. 0 [facility] Comment on above: Performed By: #### C BC ####[facility] Waapzskfke[address] [place], [place] [address]Dr. Elba Anthony NEUT # 3.4 103/ul Normal 1.4-6.5 [facility] Comment on above: Performed By: #### C BC ####[facility] Jcglrokmcx4[address] [place], [place] [address]Dr. Elba Anthony Neutrophils/100 WBC (Bld) 54.7 % Normal 43.0-75.0 [facility] Comment on above: Performed By: #### C BC ####[facility] Sjcpwgniaa[address] [place], [place] [address]Dr. Elba Anthony Platelet mean volume (Bld) [Entitic vol] 9.5 fL Normal 9.5-13.5 [facility] Comment on above: Performed By: #### C BC ####[facility] Jkhprdlumy[address] [place], [place] [address]Dr. Elba Raj PLT 206 103/ul Normal 150-450 [facility] Comment on above: Performed By: #### C BC ####[facility] Hdfwdxtfbu4[address] [place], [place] [address]Tt. Elba Anthony RBC 4.12 106/ul Critically low 4.70-6.10 [facility] Comment on above: Performed By: #### C BC ####[facility] Miyksnrnyy0571 [place] [address]Dr. Elba Anthony WBC 6.2 103/ul Normal 4.0-11.0 [facility] Comment on above: Performed By: #### C BC ####[facility] Iemrzfbtuf3223 [place] [address]Dr. Elba Anthony PROF CHEM 8 (BAS METB)on Anion gap [Moles/Vol] 10.9 mmol/L Normal [facility] Comment on above: Performed By: #### B MP ####[facility] Fjuhamaryo1756 [place] [address]Dr. Elba Anthony Calcium [Mass/Vol] 8.9 mg/dL Normal 8.5-10.1 [facility] Comment on above: Performed By: #### B MP ####[facility] Ypljbiwllf2833 [place] [address]Dr. Elba Anthony Chloride [Moles/Vol] 103 mmol/L Normal 98-107 [facility] Comment on above: Performed By: #### B MP ####[facility] Ppuiyizglw8201 [place] [address]Dr. Elba Anthony CO2 [Moles/Vol] 31.0 mmol/L Normal 21.0-32.0 [facility] Comment on above: Performed By: #### B MP ####[facility] Kpmbbtedwa8886 [place] [address]Dr. Elba Anthony Creatinine [Mass/Vol] 2.18 mg/dL Critically high 0.70-1.30 [facility] Comment on above: Performed By: #### B MP ####[facility] Qmqpirxfzv5758 [place] [address]Dr. Elba Anthony EGFR-AF CONGOLESE 36 mL/min/1.73m2 Critically low >=60 [facility] Comment on above: Performed By: #### B MP ####[facility] Cfsalsgkpw0937 [place] [address]Dr. Elba Anthony EGFR-NON AF CONGOLESE 30 mL/min/1.73m2 Critically low >=60 [facility] Comment on above: Performed By: #### B MP ####[facility] Uzzuxsurhy84[address] [place] [address]Dr. Elba Anthony Glucose [Mass/Vol] 99 mg/dL Normal 74-106 [facility] Comment on above: Performed By: #### B MP ####[facility] Rqmgmcgzhh0441 [place] [address]Dr. Elba Anthony Potassium [Moles/Vol] 3.9 mmol/L Normal 3.5-5.1 [facility] Comment on above: Performed By: #### B MP ####[facility] Glfqnazwha[address] [place], [place] [address]Dr. Elba Anthony Sodium [Moles/Vol] 141 mmol/L Normal 136-145 [facility] Comment on above: Performed By: #### B MP ####[facility] Pmkinqqypg1838 [place] [address]Dr. Elba Anthony Urea nitrogen [Mass/Vol] 40.0 mg/dL Critically high 7.0-18 .0 [facility] Comment on above: Performed By: #### B MP ####[facility] Wjsxnuswvi6360 [place] [address]Dr. Elba Anthony Urea nitrogen/Creatinine [Mass ratio] 18.3 mg/mg Normal [facility] Comment on above: Performed By: #### B MP ####[facility] Yrlhfrrjgd1651 [place] [address]Dr. Elba Anthony XR CHEST 2 Von 07-11-2022 XR CHEST 2 V Normal [facility] BNPon 07-10-2022 Natriuretic peptide B (Bld) [Mass/Vol] 2542.0 pg/mL Critically high <=900.0 [facility] spital Comment on above: Performed By: #### H STROPN, BNP, CMP ####[facility] Rzpozoufbc1898 [place] [address]Dr. Elba Anthony CARDIAC FADY 3-6on 2 CK [Catalytic activity/Vol] 40 U/L Normal 39-308 [facility] Comment on above: Performed By: #### C MREP ####[facility] Vugowloqwv[address] [place], [place] [address]Eo. Elba Anthony CK.MB [Mass/Vol] 0.92 ng/mL Normal <=3.60 [facility] Comment on above: Performed By: #### C MREP ####[facility] Yyozymmbna7313 [place] [address]Dr. Elba Anthony HSTROP 49.6 pg/mL Normal 4.0-76.1 [facility] Comment on above: Result Comment: CUT- OFF POINTS HAVE BEEN ESTABLISHED BASED ON THE FOURTH UNIVERSAL DEFINITIONS OF MYOCARDIALINFARCTION. THE UPPER REFERENCE LIMIT (URL) OF TROPONIN, DEFINED THE 99TH PERCENTILE OFcTnI DISTRIBUTION IN A REFERENCE POPULATION, HAS BEEN CONFIRMED THE DECISION THRESHOLDFOR VA DIAGNOSIS. Performed By: #### C MREP ####[facility] Bjaokrowsy[address] [place], [place] [address]Dr. Elba Anthony CK [Catalytic activity/Vol] 39 U/L Normal 39-308 [facility] Comment on above: Performed By: #### C MREP ####[facility] Wuprrrtkay3450 [place] [address]Dr. Elba Anthony CK.MB [Mass/Vol] 0.76 ng/mL Normal <=3.60 [facility] Comment on above: Performed By: #### C MREP ####[facility] Asmqfztlyz[address] [place], [place] [address]Dr. Elba Anthony HSTROP 47.3 pg/mL Normal 4.0-76.1 [facility] Comment on above: Result Comment: CUT- OFF POINTS HAVE BEEN ESTABLISHED BASED ON THE FOURTH UNIVERSAL DEFINITIONS OF MYOCARDIALINFARCTION. THE UPPER REFERENCE LIMIT (URL) OF TROPONIN, DEFINED THE 99TH PERCENTILE OFcTnI DISTRIBUTION IN A REFERENCE POPULATION, HAS BEEN CONFIRMED THE DECISION THRESHOLDFOR VA DIAGNOSIS. Performed By: #### C MREP ####[facility] Rhvqnteoao8[address] [place] [address]Dr. Elba Anthony CBC AUTO DIFFon 07-10-2022 BASO # 0.1 103/ul Normal 0.0-0.1 [facility] Comment on above: Performed By: #### C BC ####[facility] Askzrmbfsb[address] [place], [place] [address]Dr. Elba Anthony Basophils/100 WBC (Bld) 1.1 % Normal 0.2-2.0 [facility] Comment on above: Performed By: #### C BC ####[facility] Swcqnecozo99[address] [place], [place] [address]Dr. Elba Anthony EO # 0.6 103/ul Normal 0.0-0.7 [facility] Comment on above: Performed By: #### C BC ####[facility] Ohpiyciqoe5[address] [place], [place] [address]Dr. Elba Anthony Eosinophils/100 WBC (Bld) 8.9 % Critically high 0.9-7 .0 [facility] Comment on above: Performed By: #### C BC ####[facility] Xigovdqaff[address] [place], [place] [address]Dr. Elba Raj Erythrocyte distribution wid th (RBC) [Ratio] 21.1 % Critically high 11.0-15.0 [facility] pital Comment on above: Performed By: #### C BC ####[facility] U[address]jkoojdzb64[address] [place], [place] [address]Dr. Elba Anthony Hematocrit (Bld) [Volume fraction] 39.1 % Critically low 42.0-54.0 [facility] Comment on above: Performed By: #### C BC ####[facility] Mevmgfvvhx[address] [place], [place] [address]Dr. Elba Anthony Hemoglobin (Bld) [Mass/Vol] 12.6 g/dL Critically low 14.0 -18.0 [facility] Comment on above: Performed By: #### C BC ####[facility] Oxvvbhdlgk[address] [place], [place] [address]Dr. Elba Anthony IG # 0.04 10e3/ul Critically high 0.00-0.03 [facility] Comment on above: Performed By: #### C BC ####[facility] Sdngrkgcqf0619 [place] [id number] Anthony IG % 0.6 % Critically high 0.0-0.5 [facility] Comment on above: Performed By: #### C BC ####[facility] Lsunwhsfjf[address] [place] [address]DrLatoya Anthony LYMPH # 0.9 103/ul Critically low 1.2-3.8 [facility] Comment on above: Performed By: #### C BC ####[facility] Kqdgyogtey2769 [place] [address]DrLatoya Anthony Lymphocytes/100 WBC (Bld) 13.8 % Critically low 20.5-6 0.0 [facility] Comment on above: Performed By: #### C BC ####[facility] Ubetwtwujq[address] [place], [place] [address]DrLatoya Anthony MANUAL DIFF REQ NO Normal [facility] Comment on above: Performed By: #### C BC ####[facility] D[address]rovjvrxe[address] [place], [place] [address]DrLatoya Anthony MCH (RBC) [Entitic mass] 27.5 pg Normal 25.9-34.0 [facility] Comment on above: Performed By: #### C BC ####[facility] Pmzdnrnwwh[address] [place], [place] [address]DrLatoya Anthony MCHC (RBC) [Mass/Vol] 32.2 g/dL Normal 29.9-35.2 [facility] Comment on above: Performed By: #### C BC ####[facility] [address]sw[address]gfkrxb[address] [address] [place], [place] [address]DrLatoya Anthony MCV (RBC) [Entitic vol] 85.2 fL Normal 80.0-94.0 [facility] Comment on above: Performed By: #### C BC ####[facility] Twdgomaxuf[address] [place], [place] [address]Dr. Elba Anthony MONO # 0.9 103/ul Critically high 0.3-0.8 The [facility] Comment on above: Performed By: #### C BC ####[facility] Arhgzkbjcr[address] [place], [place] [id number]. Elba Anthony Monocytes/100 WBC (Bld) 14.0 % Critically high 1.7-12. 0 [facility] Comment on above: Performed By: #### C BC ####[facility] Wclwzcayid7[address] [place], [place] [address]Dr. Elba Anthony NEUT # 4.1 103/ul Normal 1.4-6.5 The [facility] Comment on above: Performed By: #### C BC ####[facility] Ksmwywnglm[address] [place], [place] [address]Dr. Elba Anthony Neutrophils/100 WBC (Bld) 61.6 % Normal 43.0-75.0 [facility] Comment on above: Performed By: #### C BC ####[facility] Ddvyqgfndl[address] [place], [place] [address]Dr. Elba Anthony Platelet mean volume (Bld) [ Entitic vol] 10.1 fL Normal 9.5-13.5 The [facility] Comment on above: Performed By: #### C BC ####[facility] Ouqat[address]mjn[address] [place], [place] [address]Dr. Elba Anthony PLT 223 103/ul Normal 150-450 [facility] Comment on above: Performed By: #### C BC ####[facility] Ehjiuxkjxr[address] [place], [place] [address]Dr. Elba Anthony RBC 4.59 106/ul Critically low 4.70-6.10 The [facility] Comment on above: Performed By: #### C BC ####[facility] Qwjbyllkrb[address] [place], [place] [address]Dr. Elba Anthony WBC 6.7 103/ul Normal 4.0-11.0 [facility] Comment on above: Performed By: #### C BC ####[facility] Cvuzfgnwnh[address] [place], [place] [address]Dr. Elba Anthony Covid-19 PCR (CVDTBH)on SARS-CoV-2 (COVID-19) RNA ELIZABETH+probe Ql (Unsp spec) Not detected Normal NOT DETECTED The [facility] Comment on above: Result Comment: When diagnostic testing is negative, the possibility of a false negative should be considered inthe context of a patient's recent exposures and the presence of clinical signs and symptomsconsistent with SARS-CoV-2.This test is not yet approved or cleared by the [place] FDA. When there are no FDA-approved or cleared tests available, and other criteria are met, FDA can make tests available under an emergency access mechanism called an Emergency Use Authorization (EUA). The EUA for this test is supported by the Md Ophthalmologist of Health and Human Service's declaration that circumstances exist to justify the emergency use of in vitro diagnostics for the detection and/or diagnosis of the virus that causes COVID-19. This EUA will remain in effect for the duration of the COVID-19 declaration justifying emergency of IVDs, unless it is terminated or revoked by the FDA (after which the test may no longer be used). Performed By: #### C VDTBH ####[facility] Tpcqxreygg[address] [place], [place] [address]Dr. Elba Raj ER URINE PROFILEon 2 Bilirubin Ql (U) Negative Normal NEGATIVE [facility] Comment on above: Performed By: #### E RUR ####[facility] Luycccdmwv[address] [place], [place] [address]Dr. Elba Anthony Clarity (U) CLEAR Normal CLEAR [facility] Comment on above: Performed By: #### E RUR ####[facility] Jnsqrefxve256[address] [place], [place] [address]Dr. Elba Anthony Color (U) LT. YELLOW Normal YELLOW [facility] Comment on above: Performed By: #### E RUR ####[facility] Wzamiqrbga[address] [place], [place] [address]Dr. Elba Anthony ERUAHD A micrscopic examina tion will be performed if indicated. Normal The [facility] Comment on above: Performed By: #### E RUR ####[facility] [address] [place] [address]Dr. Elba Anthony Glucose Ql (U) Negative Normal NEGATIVE The [facility] Comment on above: Performed By: #### E RUR ####[facility] Tdupunjxaj399[address] [place], [place] [address]Dr. Elba Anthony Hemoglobin Ql (U) Negative Normal NEGATIVE The [facility] Comment on above: Performed By: #### E RUR ####[facility] Eqbooiwfqm0427[address] [place], [place] [address]Dr. Elba Anthony Ketones Ql (U) Negative Normal NEGATIVE [facility] Comment on above: Performed By: #### E RUR ####[facility] Wpyablkpne244[address] [place], [place] [address]Dr. Elba Anthony LEUKOCYTES Negative Normal NEGATIVE [facility] Comment on above: Performed By: #### E RUR ####[facility] Vuirxbrgcn040[address] [place], [place] [address]Dr. Elba Anthony Nitrite Ql (U) Negative Normal NEGATIVE [facility] Comment on above: Performed By: #### E RUR ####[facility] Nnbipumkgj963[address] [place], [place] [address]Dr. Elba Anthony pH (U) 7.0 [pH] Normal 5-9 The [facility] Comment on above: Performed By: #### E RUR ####[facility] Ukoqtatori07[address] [place], [place] [address]Dr. Elba Anthony SPEC GRAVITY 1.010 Normal 1.005-<=1.025 The [facility] Comment on above: Performed By: #### E RUR ####[facility] Gekvysuhmu[address] [place], [place] [address]Dr. Elba Anthony UA PROTEIN Negative Normal NEGATIVE/ TRACE The [facility] Comment on above: Performed By: #### E RUR ####[facility] Duhipoknfm[address] [place], [place] [address]Dr. Elba Anthony UR MICRO IND NOT INDICATED Normal The [facility] Comment on above: Performed By: #### E RUR ####[facility] Gyuicjqtyz[address] [place] [address]Dr. Elba Anthony Urobilinogen Qn (U) 0.2 {Caden'U}/dL Normal 0.2 - 1. 0 [facility] Comment on above: Performed By: #### E RUR ####[facility] Oujrsxijxo[address] [place] [address]Dr. Elba Anthony PROF 14(COMP METB)on 022 Albumin [Mass/Vol] 3.3 g/dL Critically low 3.4-5.0 [facility] Comment on above: Performed By: #### H STROPN, BNP, CMP ####[facility] Xpjmjwtvlp450[address] [place] [address]Dr. Elba Anthony Albumin/Globulin [Mass ratio] 0.8 {ratio} Normal [facility] Comment on above: Performed By: #### H STROPN, BNP, CMP ####[facility] Mmictjbttp[address] [place], [place] [address]Dr. Elba Anthony ALP [Catalytic activity/Vol] 114 U/L Normal 46-116 [facility] Comment on above: Performed By: #### H STROPN, BNP, CMP ####[facility] Jcrtbjutdz[address] [place], [place] [address]Dr. Elba Anthony ALT [Catalytic activity/Vol] 23 U/L Normal 16-63 [facility] Comment on above: Performed By: #### H STROPN, BNP, CMP ####[facility] Aaggozeesk[address] [place] [address]Dr. Elba Anthony Anion gap [Moles/Vol] 9.5 mmol/L Normal [facility] Comment on above: Performed By: #### H STROPN, BNP, CMP ####[facility] P[address]jmt[address] [place] [address]Dr. Elba Anthony AST [Catalytic activity/Vol] 32 U/L Normal 15-37 [facility] Comment on above: Performed By: #### H STROPN, BNP, CMP ####[facility] Ffcqitkvpl[address] [place] [address]Dr. Elba Anthony Bilirubin [Mass/Vol] 0.7 mg/dL Normal 0.2-1.0 [facility] Comment on above: Performed By: #### H STROPN, BNP, CMP ####[facility] Jdiuajfdah39[address] [place] [address]Dr. Elba Anthony Calcium [Mass/Vol] 9.1 mg/dL Normal 8.5-10.1 [facility] Comment on above: Performed By: #### H STROPN, BNP, CMP ####[facility] Zjtbgtudez[address] [place] [address]Dr. Elba Anthony Chloride [Moles/Vol] 99 mmol/L Normal 98-107 [facility] Comment on above: Performed By: #### H STROPN, BNP, CMP ####[facility] Zhjlcqebwe[address] [place], [place] [address]Dr. Elba Anthony CO2 [Moles/Vol] 33.2 mmol/L Critically high 21.0-32.0 [facility] Comment on above: Performed By: #### H STROPN, BNP, CMP ####[facility] Wtftbwbpji[address] [place], [place] [address]Dr. Elba Anthony Creatinine [Mass/Vol] 2.31 mg/dL Critically high 0.70-1.30 [facility] Comment on above: Performed By: #### H STROPN, BNP, CMP ####[facility] Zgvblwaufo[address] [place], [place] [address]Dr. Elba Anthony EGFR-AF CONGOLESE 34 mL/min/1.73m2 Critically low >=60 [facility] Comment on above: Performed By: #### H STROPN, BNP, CMP ####[facility] [address]vsrmnkuub[address] [place] [address]Dr. Elba Anthony EGFR-NON AF CONGOLESE 28 mL/min/1.73m2 Critically low >=60 [facility] Comment on above: Performed By: #### H STROPN, BNP, CMP ####[facility] Djhmttiqbo[address] [place] [address]Dr. Elba Anthony Globulin (S) [Mass/Vol] 4.3 g/dL Normal [facility] Comment on above: Performed By: #### H STROPN, BNP, CMP ####[facility] Voz[address]dbkf15[address] [place] [address]Dr. Elba Anthony Glucose [Mass/Vol] 98 mg/dL Normal 74-106 [facility] Comment on above: Performed By: #### H STROPN, BNP, CMP ####[facility] Lakzezrllf[address] [place] [address]Dr. Elba Anthony Potassium [Moles/Vol] 4.7 mmol/L Normal 3.5-5.1 [facility] Comment on above: Performed By: #### H STROPN, BNP, CMP ####[facility] Nwuvfngeot[address] [place] [address]Dr. Elba Anthony Protein [Mass/Vol] 7.6 g/dL Normal 6.4-8.2 [facility] Comment on above: Performed By: #### H STROPN, BNP, CMP ####[facility] Fjsqpaqznt[address] [place] [address]Dr. Elba Anthony Sodium [Moles/Vol] 137 mmol/L Normal 136-145 [facility] Comment on above: Performed By: #### H STROPN, BNP, CMP ####[facility] Xtrzlqpvik16[address] [place] [address]Dr. Elba Anthony Urea nitrogen [Mass/Vol] 47.0 mg/dL Critically high 7.0-18 .0 [facility] Comment on above: Performed By: #### H STROPN, BNP, CMP ####[facility] [address]xtsrr[address] [place] [address]Dr. Elba Anthony Urea nitrogen/Creatinine [Mass ratio] 20.3 mg/mg Normal [facility] Comment on above: Performed By: #### H STROPN, BNP, CMP ####[facility] Qimrucxexw37[address] [place] [address]Dr. Elba Anthony PROTIMEon 07-10-2022 INR Coag (PPP) [Relative time] 1.07 {INR} Normal [facility] Comment on above: Performed By: #### P T, PTT ####[facility] [address] [place] [address]Dr. Elba Anthony INR GUIDELINES SEE BELOW Normal [facility] Comment on above: Result Comment: FUAD RED INR: 2.0 - 3.0 CONDITIONS NOT LISTED BELOW 2.5 - 3.5 FOR PROSTHETIC HEART VALVE REPLACEMENT 2.5 - 3.5 RECURRENT THROMBOSIS Performed By: #### P T, PTT ####[facility] [address]hw[address] [place] [address]Dr. Elba Anthony PT Coag (PPP) [Time] 11.5 s Normal 9.0-11.6 [facility] Comment on above: Performed By: #### P T, PTT ####[facility] U[address]srqe54[address] [place] [address]Dr. Elba Anthony PTTon 07-10-2022 aPTT Coag (Bld) [Time] 34.7 s Normal 22.3-36.2 [facility] Comment on above: Performed By: #### P T, PTT ####[facility] Aw[address]on[address] [place] [address]Dr. Elba Anthony TROPONIN, HIGH SENSITIVITYon 07-10-2022 HSTROP 45.2 pg/mL Normal 4.0-76.1 [facility] Comment on above: Result Comment: CUT- OFF POINTS HAVE BEEN ESTABLISHED BASED ON THE FOURTH UNIVERSAL DEFINITIONS OF MYOCARDIALINFARCTION. THE UPPER REFERENCE LIMIT (URL) OF TROPONIN, DEFINED THE 99TH PERCENTILE OFcTnI DISTRIBUTION IN A REFERENCE POPULATION, HAS BEEN CONFIRMED THE DECISION THRESHOLDFOR VA DIAGNOSIS. Performed By: #### H STROPN, BNP, CMP ####[facility] [address] [place], [place] [address]Ax. Elba Anthony XR CHEST 1 Von 07-10-2022 XR CHEST 1 V Normal [facility] US venous duplex LE BIon US venous duplex LE [facility] Main [place] [id number] Ultrasound Report Signed Patient: Man Patel MR#: [id number] : 1950 Acct:[id number] Age/Sex: 72 / M ADM Date: 06/27/22 Loc: ER Room: Type: [facility] ER Attending Dr: Ordering Provider: Melva Owusu APRN Date of Service: 06/27/22 US/US venous duplex LE BI: swelling/ pain Copies to: GAIL Alxeandre DO BILATERAL LOWER EXTREMITY VENOUS DUPLEX INDICATION: Bilateral lower extremity edema and swelling PROCEDURE: Color-flow duplex scanning is used to interrogate the deep venous system of the right and left lower extremities. The common femoral vein, femoral vein and popliteal vein show good compressibility with normal proximal and distal augmentation. The calf veins are compressible. US/US venous duplex LE BI IMPRESSION: NO EVIDENCE FOR DEEP VEIN THROMBOSIS OR PROXIMAL SUPERFICIAL THROMBOPHLEBITIS IN THE RIGHT OR LEFT LOWER EXTREMITY. Impression dictated by: Balwinder Watson MD06/28/2022 8:49 AM Dictation Location: [place] [address] Tech: Mayrael Henry Transcribed By: KELLI 06/28/2249 Dictated By: Balwinder Watson MD 06/28/2249 Signed By: 06/28/2249 Normal [facility] Activated partial thrombopla stin time (aPTT) in platelet poor plasma by coagulation aOrdered By: Melva Owusu on 06-27-2022 aPTT Coag (PPP) [Time] 36.4 s 25.1-36.5 [facility] Albumin [Mass/volume] in Ser um or PlasmaOrdered By: Melva Owusu on 06-27-2022 Albumin [Mass/Vol] 3.1 g/dL 3.2-5.5 [facility] B-Type Natriuretic Peptideon 06-27-2022 Natriuretic peptide B (Bld) [Mass/Vol] 367.0 pg/mL High 5-100 [facility] Comment on above: Result Comment: PERF ORMED BY: [address] [address] GARCIA M.D. Performed By: #### S MACK PATEL-Octavia JOSE #### [address] [place] [address] [place] Basophils Auto (Bld) [#/Vol] Ordered By: Melva Owusu on 06-27-2022 Basophils (Bld) [#/Vol] 0.0 10*3/uL 0.0-0.2 [facility] Basophils/100 WBC Auto (Bld) Ordered By: Melva Petersondejose francisco on 06-27-2022 Basophils/100 WBC (Bld) 0.6 % . F [facility] Bilirubin Test strip Ql (U)O rdered By: Melva Kristenglendy on 06-27-2022 Bilirubin Ql (U) Negative Negative [facility] Blood Cultureon 06-27-2022 Bacteria identified Cx Nom (Bld) NO GROWTH 5 DAYS PERFORMED BY: [place] [address] GARCIA M.D. [facility] Comment on above: Performed By: #### C UBLD, LACTIC #### [address] Bacteria identified Cx Nom (Bld) NO GROWTH 5 DAYS PERFORMED BY: [place] [address] GARCIA M.D. [facility] Comment on above: Performed By: #### C UBLD, LACTIC #### [address] COVID-19 Antigenon 2 COVID-19 Antigen Healthcare Worker?: N Reference Range: Negative Negative results, from patients with symptom onset beyond five days, should be treated as presumptive and confirmation with a molecular assay, if necessary, for patient management, may be performed. Negative results do not rule out COVID-19 and should not be used as the sole basis for treatment or patient management decisions, including infection control decisions. Negative results should be considered in the context of a patient's recent exposures, history and the presence of clinical signs and symptoms consistent with COVID-19. The Jose SARS Antigen MORIAH does not differentiate between SARS-CoV and SARS-CoV-2. This test was developed and its performance characteristic determined by [employer] [facility] and validated at [facility]. This test has not been FDA cleared or approved. This test has been authorized by FDA under an Emergency Use Authorization (EUA). This test has been validated in accordance with the FDA's Guidance Document (Policy for Diagnostics Testing in Laboratories Certified to Perform High Complexity Testing under CLIA prior to Emergency Use Authorization for Coronavirus Disease-2019 during the Public Health Emergency) issued on December 09, 2019. This test is only authorized for the duration of time the declaration that circumstances exist justifying the authorization of the emergency use of in vitro diagnostic tests for detection of SARS-CoV-2 virus and/or diagnosis of COVID-19 infection under section 564(b)(1) of the Act, 21 U.S.C. 360bbb-3(b)(1), unless the authorization is terminated or revoked sooner. SARS-CoV+SARS-CoV-2 (COVID-19) Ag [Presence] in Respiratory specimen by Rapid immunoassay Negative for SARS Antigen by MORIAH PERFORMED BY: [place] [address] GARCIA M.D. Normal [facility] Comment on above: Performed By: #### S JORGE COVID-19 JOSE #### [address] COVID-19 SOFIAOrdered By: Fito Chavarria on 06-27-2022 SARS-CoV+SARS-CoV-2 (COVID-1 9) Ag IA.rapid Ql (Resp) Negative Negative [facility] Comment on above: This is a duplicate Jose SARS Antigen (MORIAH) result to be used for statistical tracking purpose only. Coagulation Profileon 2021 aPTT Coag (Bld) [Time] 36.4 s Normal 25.1-36.5 [facility] Comment on above: Result Comment: PERF ORMED BY: [place] [address] GARCIA M.D. Performed By: #### S OFALDOEG, COVID-19 JOSE #### [address] INR Coag (PPP) [Relative time] 1.5 {INR} Normal [facility] Comment on above: Result Comment: INR Therapeutic Range A) Pre- and Peroperative OAT started two weeks before surgery. NOT HIP SURGERY: 1.5 - 2.5 HIP SURGERY: 2 - 3 B) Primary and secondary prevention of venous THROMBOSIS: 2 - 3 C) Active venous thrombosis, pulmonary embolism and prevention of recurrent venous thrombosis: 2 - 3 D) Prevention of arterial thromboembolism including patients with mechanical heart valves: 3 - 4.5 Performed By: #### S OFIANJAM, COVID-19 JOSE #### [address] PT Coag (PPP) [Time] 17.3 s High 9.0-12.9 [facility] Comment on above: Performed By: #### S OFIANEG, COVID-19 JOSE #### [address] Color Auto (U)Ordered By: Lisa Owusu on 06-27-2022 Color (U) Yellow Yellow [facility] Complete Blood Count Auto Di ffon 06-27-2022 Basophils (Bld) [#/Vol] 0.0 10*3/uL Normal 0.0-0.2 [facility] Comment on above: Result Comment: PERF ORMED BY: [place] [address] GARCIA M.D. Performed By: #### B DIRECTOR OF SOCIAL WORK, CBC, PP, CMP #### [address] Basophils/100 WBC (Bld) 0.6 % Normal . [facility] Comment on above: Performed By: #### B DIRECTOR OF SOCIAL WORK, CBC, PP, CMP #### [address] Eosinophils (Bld) [#/Vol] 0.6 10*3/uL High 0.0-0.45 [facility] Comment on above: Performed By: #### B DIRECTOR OF SOCIAL WORK, CBC, PP, CMP #### [address] Eosinophils/100 WBC (Bld) 9.4 % Normal . [facility] Comment on above: Performed By: #### B DIRECTOR OF SOCIAL WORK, CBC, PP, CMP #### [address] Erythrocyte distribution wid th (RBC) [Ratio] 24.6 % High 12.0-14.8 [facility] Comment on above: Performed By: #### B DIRECTOR OF SOCIAL WORK, CBC, PP, CMP #### [address] Hematocrit (Bld) [Volume fraction] 39.7 % Normal 38.8-50.0 [facility] Comment on above: Performed By: #### B DIRECTOR OF SOCIAL WORK, CBC, PP, CMP #### [address] Hemoglobin (Bld) [Mass/Vol] 12.9 g/dL Low 13.0-17. 0 [facility] Comment on above: Performed By: #### B DIRECTOR OF SOCIAL WORK, CBC, PP, CMP #### [address] Lymphocytes (Bld) [#/Vol] 0.6 10*3/uL Low 1.00-4.8 [facility] Comment on above: Performed By: #### B DIRECTOR OF SOCIAL WORK, CBC, PP, CMP #### [address] Lymphocytes/100 WBC (Bld) 9.3 % Normal . [facility] Comment on above: Performed By: #### B DIRECTOR OF SOCIAL WORK, CBC, PP, CMP #### [address] MCH (RBC) [Entitic mass] 26.8 pg Low 27.5-35.2 [facility] Comment on above: Performed By: #### B DIRECTOR OF SOCIAL WORK, CBC, PP, CMP #### [address] MCV (RBC) [Entitic vol] 82.7 fL Low 83.5-101 F [facility] Comment on above: Performed By: #### B DIRECTOR OF SOCIAL WORK, CBC, PP, CMP #### [address] Mean Corpuscular HGB Conc 32.4 g/dL Low 32.5-35.6 [facility] Comment on above: Performed By: #### B DIRECTOR OF SOCIAL WORK, CBC, PP, CMP #### [address] Monocytes (Bld) [#/Vol] 0.6 10*3/uL Normal 0.0-0.8 [facility] Comment on above: Performed By: #### B DIRECTOR OF SOCIAL WORK, CBC, PP, CMP #### [address] Monocytes/100 WBC (Bld) 9.4 % Normal . [facility] Comment on above: Performed By: #### B DIRECTOR OF SOCIAL WORK, CBC, PP, CMP #### [address] Neutrophils (Bld) [#/Vol] 4.7 10*3/uL Normal 1.8-7.7 [facility] Comment on above: Performed By: #### B DIRECTOR OF SOCIAL WORK, CBC, PP, CMP #### [address] Neutrophils/100 WBC (Bld) 71.3 % Normal . [facility] Comment on above: Performed By: #### B DIRECTOR OF SOCIAL WORK, CBC, PP, CMP #### [place] [address] [place] Nucleated RBC/100 WBC (Bld) [Ratio] 0.0 % Normal 0-0.5 [facility] Comment on above: Performed By: #### B DIRECTOR OF SOCIAL WORK, CBC, PP, CMP #### [address] Platelet mean volume (Bld) [Entitic vol] 8.0 fL Normal 6.6-10.1 [facility] Comment on above: Performed By: #### B DIRECTOR OF SOCIAL WORK, CBC, PP, CMP #### [address] Platelets (Bld) [#/Vol] 163 10*3/uL Normal 150-450 [facility] Comment on above: Performed By: #### B DIRECTOR OF SOCIAL WORK, CBC, PP, CMP #### [address] RBC (Bld) [#/Vol] 4.80 10*6/uL Normal 3.90-5.60 [facility] Comment on above: Performed By: #### B DIRECTOR OF SOCIAL WORK, CBC, PP, CMP #### [address] WBC (Bld) [#/Vol] 6.5 10*3/uL Normal 4.5-11.0 [facility] Comment on above: Performed By: #### B DIRECTOR OF SOCIAL WORK, CBC, PP, CMP #### [address] Comprehensive Metabolic Pane jeff 06-27-2022 Albumin [Mass/Vol] 3.1 g/dL Low 3.2-5.5 [facility] Comment on above: Performed By: #### B DIRECTOR OF SOCIAL WORK, CBC, PP, CMP #### [address] Albumin/Globulin [Mass ratio] 0.8 {ratio} Normal [facility] Comment on above: Performed By: #### B DIRECTOR OF SOCIAL WORK, CBC, PP, CMP #### [address] ALP [Catalytic activity/Vol] 98 U/L High 32-92 [facility] Comment on above: Performed By: #### B DIRECTOR OF SOCIAL WORK, CBC, PP, CMP #### [address] ALT [Catalytic activity/Vol] 28 U/L Normal [facility] Comment on above: Performed By: #### B DIRECTOR OF SOCIAL WORK, CBC, PP, CMP #### [address] Anion gap [Moles/Vol] 15.0 mmol/L Normal 6.0-15.0 [facility] Comment on above: Performed By: #### B DIRECTOR OF SOCIAL WORK, CBC, PP, CMP #### [facility] [address] [place] [address] AST [Catalytic activity/Vol] 32 U/L Normal 10-42 [facility] Comment on above: Performed By: #### B DIRECTOR OF SOCIAL WORK, CBC, PP, CMP #### [facility] [address] Bilirubin [Mass/Vol] 0.9 mg/dL Normal 0.3-1.2 [facility] Comment on above: Performed By: #### B DIRECTOR OF SOCIAL WORK, CBC, PP, CMP #### [address] Calcium [Mass/Vol] 9.4 mg/dL Normal 8.2-10.2 [facility] Comment on above: Performed By: #### B DIRECTOR OF SOCIAL WORK, CBC, PP, CMP #### [address] Chloride [Moles/Vol] 96 mmol/L Normal 95-114 [facility] Comment on above: Performed By: #### B DIRECTOR OF SOCIAL WORK, CBC, PP, CMP #### [address] CO2 [Moles/Vol] 28.8 mmol/L Normal 22.0-30.0 [facility] Comment on above: Performed By: #### B DIRECTOR OF SOCIAL WORK, CBC, PP, CMP #### [address] Creatinine [Mass/Vol] 2.48 mg/dL High 0.64-1.27 [facility] Comment on above: Performed By: #### B DIRECTOR OF SOCIAL WORK, CBC, PP, CMP #### [address] Creatinine Clr Calc Pharmacy 33.36 Normal [facility] Comment on above: Result Comment: PERF ORMED BY: [place] [address] GARCIA M.D. Performed By: #### B DIRECTOR OF SOCIAL WORK, CBC, PP, CMP #### [facility] [address] Estimated GFR ( Andra 31 [facility] Comment on above: Result Comment: GFR estimated reference range: According to KDOQI guidelines, <60 ml/min/1.73m2 is sufficient to diagnose a patient with chronic kidney disease. Performed By: #### B DIRECTOR OF SOCIAL WORK, CBC, PP, CMP #### [facility] [address] Estimated GFR (Non- Am 26 [facility] Comment on above: Performed By: #### B DIRECTOR OF SOCIAL WORK, CBC, PP, CMP #### [facility] [address] Globulin (S) [Mass/Vol] 4.1 g/dL Normal [facility] Comment on above: Performed By: #### B DIRECTOR OF SOCIAL WORK, CBC, PP, CMP #### [facility] [address] Glucose [Mass/Vol] 128 mg/dL High 70-100 [facility] Comment on above: Result Comment: [place] Glucose Reference Range is dependent on time and content of last meal. Glucose of more than 200 mg/dL in a nonstressed, ambulatory subject supports the diagnosis of Diabetes Mellitus. ADA recommended reference range Performed By: #### B DIRECTOR OF SOCIAL WORK, CBC, PP, CMP #### [facility] [address] Potassium [Moles/Vol] 3.8 mmol/L Normal 3.5-5.1 [facility] Comment on above: Performed By: #### B DIRECTOR OF SOCIAL WORK, CBC, PP, CMP #### [facility] [address] Protein [Mass/Vol] 7.2 g/dL Normal 6.1-7.9 [facility] Comment on above: Performed By: #### B DIRECTOR OF SOCIAL WORK, CBC, PP, CMP #### [facility] [address] Sodium [Moles/Vol] 136 mmol/L Normal 136-146 [facility] Comment on above: Performed By: #### B DIRECTOR OF SOCIAL WORK, CBC, PP, CMP #### [facility] [address] [place] [address] [place] Urea nitrogen [Mass/Vol] 40 mg/dL High 05-31 [facility] Comment on above: Performed By: #### B DIRECTOR OF SOCIAL WORK, CBC, PP, CMP #### [facility] [address] Creatinine and Glomerular fi ltration rate.predicted panel (S/P/Bld)Ordered By: Melva Owusu on 06-27-2022 Creatinine [Mass/Vol] 2.48 mg/dL 0.64-1.27 [facility] Eosinophils Auto (Bld) [#/Vo l]Ordered By: Melva Owusu on 06-27-2022 Eosinophils (Bld) [#/Vol] 0.6 10*3/uL 0.0-0.45 [facility] Eosinophils/100 WBC Auto (Bl d)Ordered By: Melva Owusu on 06-27-2022 Eosinophils/100 WBC (Bld) 9.4 % . [facility] Erythrocyte distribution wid th Auto (RBC) [Ratio]Ordered By: Melva Owusu on 06-27-2022 Erythrocyte distribution wid th (RBC) [Ratio] 24.6 % 12.0-14.8 [facility] Estimated glomerular filtrat ion rate (GFR) non- AmericanOrdered By: Melva Owusu on 06-27-2022 GFR/1.73 sq M.predicted rebekah g non-blacks MDRD (S/P/Bld) [Vol rate/Area] 26 mL/Min [facility] Globulin Calc (S) [Mass/Vol] Ordered By: Melva Owusu on 06-27-2022 Globulin (S) [Mass/Vol] 4.1 g/dL F [facility] Hematocrit Auto (Bld) [Volum e fraction]Ordered By: Melva Owusu on 06-27-2022 Hematocrit (Bld) [Volume fraction] 39.7 % 3 8.8-50.0 [facility] Hemoglobin [Mass/volume] in BloodOrdered By: Melva Owusu on 06-27-2022 Hemoglobin (Bld) [Mass/Vol] 12.9 g/dL 13.0-17. 0 [facility] Ketones Auto test strip (U) [Mass/Vol]Ordered By: Melva Owusu on 06-27-2022 Ketones (U) [Mass/Vol] Negative Negative [facility] - Chemistry and C hemistry - challengeOrdered By: Melva Owusu on 06-27-2022 Natriuretic peptide B (Bld) [Mass/Vol] 367.0 pg/mL 5-100 [facility] Laboratory - CoagulationOrde red By: Melva Owusu on 06-27-2022 PT Coag (PPP) [Time] 17.3 s 9.0-12.9 [facility] - Hematology and Cell countsOrdered By: Melva Owusu on 06-27-2022 Nucleated RBC/100 WBC (Bld) [Ratio] 0.0 % 0-0.5 [facility] Lactic Acidon 06-27-2022 Lactate [Moles/Vol] 1.7 mmol/L Normal 0.5-2.2 [facility] Comment on above: Result Comment: PERF ORMED BY: [place] [address] GARCIA M.D. Performed By: #### C UBLD, LACTIC #### [address] Leukocytes [#/volume] in Blo od by Automated countOrdered By: Melva Owusu on 06-27-2022 WBC (Bld) [#/Vol] 6.5 10*3/uL 4.5-11.0 [facility] Lymphocytes Auto (Bld) [#/Vo l]Ordered By: Melva Owusu on 06-27-2022 Lymphocytes (Bld) [#/Vol] 0.6 10*3/uL 1.00-4.8 [facility] Lymphocytes/100 WBC Auto (Bl d)Ordered By: Melva Owusu on 06-27-2022 Lymphocytes/100 WBC (Bld) 9.3 % . [facility] MCH Auto (RBC) [Entitic mass ]Ordered By: Melva Owusu on 06-27-2022 MCH (RBC) [Entitic mass] 26.8 pg 27.5-35.2 [facility] MCHC Auto (RBC) [Mass/Vol]Or dered By: Melva Owusu on 06-27-2022 MCHC (RBC) [Mass/Vol] 32.4 g/dL 32.5-35.6 [facility] MCV Auto (RBC) [Entitic vol] Ordered By: Melva Owusu on 06-27-2022 MCV (RBC) [Entitic vol] 82.7 fL 83.5-101 [facility] Monocytes Auto (Bld) [#/Vol] Ordered By: Melva Owusu on 06-27-2022 Monocytes (Bld) [#/Vol] 0.6 10*3/uL 0.0-0.8 [facility] Monocytes/100 WBC Auto (Bld) Ordered By: Melva Owusu on 06-27-2022 Monocytes/100 WBC (Bld) 9.4 % . [facility] Neutrophils Auto (Bld) [#/Vo l]Ordered By: Melva Owusu on 06-27-2022 Neutrophils (Bld) [#/Vol] 4.7 10*3/uL 1.8-7.7 [facility] Neutrophils/100 WBC Auto (Bl d)Ordered By: Melva Owusu on 06-27-2022 Neutrophils/100 WBC (Bld) 71.3 % . [facility] Nitrite Test strip Ql (U)Ord ered By: Melva Owusu on 06-27-2022 Nitrite Ql (U) Negative Negative [facility] No Panel InformationOrdered By: Melva Owusu on 06-27-2022 Estimated GFR () 31 mL/Min [facility] Comment on above: GFR estimated refere nce range: According to KDOQI guidelines, <60 ml/min/1.73m2 is sufficient to diagnose a patient with chronic kidney disease. Pharmacy Creatinine Clearance (Chem 33.36 [facility] No Panel InformationOrdered By: Balwinder Chavarria on 06-27-2022 SARS Antigen (LFIA) [facility] Platelet mean volume Auto (B ld) [Entitic vol]Ordered By: Melva Owusu on 06-27-2022 Platelet mean volume (Bld) [Entitic vol] 8.0 fL 6.6-10.1 [facility] Platelet poor plasma interna tional normalized ratio (INR) by coagulation assay (relatOrdered By: Melva Ouwsu on 06-27-2022 INR Coag (PPP) [Relative time] 1.5 {INR} [facility] Comment on above: INR Therapeutic Rang e A) Pre- and Peroperative OAT started two weeks before surgery. NOT HIP SURGERY: 1.5 - 2.5 HIP SURGERY: 2 - 3B) Primary and secondary prevention of venous THROMBOSIS: 2 - 3C) Active venous thrombosis, pulmonary embolismand prevention of recurrent venous thrombosis: 2 - 3D) Prevention of arterial thromboembolismincluding patients with mechanical heart valves: 3 - 4.5 Platelets Auto (Bld) [#/Vol] Ordered By: Melva Owusu on 06-27-2022 Platelets (Bld) [#/Vol] 163 10*3/uL 150-450 [facility] Protein Auto test strip (U) [Mass/Vol]Ordered By: Melva Owusu on 06-27-2022 Protein (U) [Mass/Vol] Negative Negative [facility] Protein [Mass/volume] in Ser um or PlasmaOrdered By: Melva Owusu on 06-27-2022 Protein [Mass/Vol] 7.2 g/dL 6.1-7.9 [facility] RBC Auto (Bld) [#/Vol]Ordere d By: Melva Owusu on 06-27-2022 RBC (Bld) [#/Vol] 4.80 10*6/uL 3.90-5.60 [facility] Serum or plasma alanine [place] otransferase measurement without P-5'-P (enzymatic activiOrdered By: Melva Owusu on 06-27-2022 ALT No additional P-5'-P [Ca talytic activity/Vol] 28 U/L 1060 [facility] Serum or plasma albumin/glob ulin mass ratioOrdered By: Melva Owusu on 06-27-2022 Albumin/Globulin [Mass ratio] 0.8 {ratio} [facility] Serum or plasma alkaline mumtaz sphatase measurement (enzymatic activity/volume)Ordered By: Melva Owusu on 06-27-2022 ALP [Catalytic activity/Vol] 98 U/L 32-92 [facility] Serum or plasma anion gap de terminationOrdered By: Melva Owusu on 06-27-2022 Anion gap [Moles/Vol] 15.0 mmol/L 6.0-15.0 [facility] Serum or plasma aspartate am inotransferase measurement (enzymatic activity/volume)Ordered By: Melva Owusu on 06-27-2022 AST [Catalytic activity/Vol] 32 U/L 10- [facility] Serum or plasma calcium brii urement (mass/volume)Ordered By: Melva Owusu on 06-27-2022 Calcium [Mass/Vol] 9.4 mg/dL 8.2-10.2 [facility] Serum or plasma chloride edgar surement (moles/volume)Ordered By: Melva Owusu on 06-27-2022 Chloride [Moles/Vol] 96 mmol/L 95-114 [facility] Serum or plasma glucose brii urement (mass/volume)Ordered By: Melva Owusu on 06-27-2022 Glucose [Mass/Vol] 128 mg/dL 70-100 [facility] Comment on above: ADA recommended refe rence rangeRandom Glucose Reference Range is dependent on time and content of last meal. Glucose of more than 200 mg/dL in a nonstressed, ambulatory subject supports the diagnosis of Diabetes Mellitus. Serum or plasma potassium me asurement (moles/volume)Ordered By: Melva Owusu on 06-27-2022 Potassium [Moles/Vol] 3.8 mmol/L 3.5-5.1 [facility] Serum or plasma sodium measu rement (moles/volume)Ordered By: Melva Owusu on 06-27-2022 Sodium [Moles/Vol] 136 mmol/L 136-146 [facility] Serum or plasma total biliru bin measurement (mass/volume)Ordered By: Melva Owusu on 06-27-2022 Bilirubin [Mass/Vol] 0.9 mg/dL 0.3-1.2 [facility] Serum or plasma total carbon dioxide measurement (moles/volume)Ordered By: Melva Owusu on 06-27-2022 CO2 [Moles/Vol] 28.8 mmol/L 22.0-30.0 [facility] Serum or plasma urea nitroge n measurement (mass/volume)Ordered By: Melva Balbuenajose francisco on 06-27-2022 Urea nitrogen [Mass/Vol] 40 mg/dL 05-31 [facility] Jose Ag Negativeon 06-27-20 Jose Ag Negative Negative Normal Negative [facility] Comment on above: Result Comment: This is a duplicate Jose SARS Antigen (MORIAH) result to be used for statistical tracking purpose only. PERFORMED BY: [place] [address] GARCIA M.D. Performed By: #### S OFCATALINA, COVID-19 JOSE #### [facility] [address] [place] [address] Specific gravity Auto test s trip (U) [Rel density]Ordered By: Melva Owusu on 06-27-2022 Specific gravity (U) [Rel density] 1.012 1.001-1.030 [facility] Urinalysison 06-27-2022 Appearance (U) Clear Normal Clear [facility] Comment on above: Order Comment: Name Collection Type:: Clean-Voided Midstream Performed By: #### U A #### [facility] [address] [place] [address] [place] Bilirubin,Urine Negative Normal Negative [facility] Comment on above: Order Comment: Name Collection Type:: Clean-Voided Midstream Performed By: #### U A #### [facility] [address] [place] [address] [place] Color (U) Yellow Normal Yellow [facility] Comment on above: Order Comment: Name Collection Type:: Clean-Voided Midstream Performed By: #### U A #### [address] Glucose Ql (U) Normal Normal Normal [facility] Comment on above: Order Comment: Name Collection Type:: Clean-Voided Midstream Performed By: #### U A #### [address] Ketones Ql (U) Negative Normal Negative [facility] Comment on above: Order Comment: Name Collection Type:: Clean-Voided Midstream Performed By: #### U A #### [address] Leukocyte esterase Test stri p Ql (U) Negative Normal Negative [facility] Comment on above: Order Comment: Name Collection Type:: Clean-Voided Midstream Performed By: #### U A #### [address] Nitrite,Urine Negative Normal Negative [facility] Comment on above: Order Comment: Name Collection Type:: Clean-Voided Midstream Performed By: #### U A #### [address] Occult Blood,Urine Negative Normal Negative [facility] Comment on above: Order Comment: Name Collection Type:: Clean-Voided Midstream Result Comment: PERF ORMED BY: [place] [address] GARCIA M.D. Performed By: #### U A #### [place] [address] [place] pH (U) 6.0 [pH] Normal 5.0-9.0 [facility] Comment on above: Order Comment: Name Collection Type:: Clean-Voided Midstream Performed By: #### U A #### [place] [address] [place] Protein,Urine Negative Normal Negative [facility] Comment on above: Order Comment: Name Collection Type:: Clean-Voided Midstream Performed By: #### U A #### [place] [address] [place] Specificy [place],Urine 1.012 Normal 1.001-1.030 [facility] Comment on above: Order Comment: Name Collection Type:: Clean-Voided Midstream Performed By: #### U A #### [facility] [address] [place] [id number] [facility] Urobilinogen,Urine Normal Normal Normal [facility] Comment on above: Order Comment: Name Collection Type:: Clean-Voided Midstream Performed By: #### U A #### [facility] [address] [place] [id number] [place] Urine clarity by refractomet ry automatedOrdered By: Melva Owusu on 06-27-2022 Clarity Refractometry automated (U) Clear Clear [facility] Urine glucose measurement by automated test strip (mass/volume)Ordered By: Melva Owusu on 06-27-2022 Glucose Auto test strip (U) [Mass/Vol] Normal mg/dL Normal [facility] Urine hemoglobin detection b y automated test stripOrdered By: Melva Owusu on 06-27-2022 Hemoglobin Auto test strip Ql (U) Negative Ne gative [facility] Urine lactic acid measuremen tOrdered By: Melva Owusu on 06-27-2022 Lactate (U) [Moles/Vol] 1.7 mmol/L 0.5-2.2 [facility] Urine leukocyte esterase det ection by automated test stripOrdered By: Melva Owusu on 06-27-2022 Leukocyte esterase Auto test strip Ql (U) Negative Negative [facility] Urobilinogen Auto test strip (U) [Mass/Vol]Ordered By: Melva Owusu on 06-27-2022 Urobilinogen (U) [Mass/Vol] Normal mg/dL Normal [facility] XR chest 2V*on 06-27-2022 XR chest 2V* [facility] [address] [place] [address] [place] [address] XRay Report Signed Patient: Man Patel MR#: [id number] : 1950 Acct:[id number] Age/Sex: 72 / M ADM Date: 06/27/22 Loc: ER Room: Type: [facility] ER Attending Dr: Copies to: GAIL Alexandre DO Ordering Provider: Melva Owusu APRN Date of Service: 06/27/22 XR/XR chest 2V*: Skin/Abscess/Foreign Body AP ERECT AND LATERAL CHEST: CLINICAL HISTORY: Lower extremity cellulitis COMPARISON: None There is lordotic positioning on the frontal view. Median sternotomy wires and a left-sided pacemaker are seen. There is slight coarsening of interstitial markings. There is no focal par enchymal consolidation, effusion or pneumothorax. The heart is borderline prominent. The hilar and mediastinal silhouettes are within normal limits. The visualized bony thorax is intact. There is endplate spurring at the spine. XR/XR chest 2V* IMPRESSION: BORDERLINE CARDIOMEGALY. MINIMAL NONSPECIFIC INTERSTITIAL CHANGE. Impression dictated by: Cris Johnson M.D.06/27/2022 3:42 PM Dictation Location: [place] [address] Transcribed By: [facility] 06/27/221541 Dictated By: Cris Johnson MD 06/27/221539 Signed By: 06/27/22 154 Normal [facility] pH Auto test strip (U)Ordere d By: Melva Owusu on 06-27-2022 pH (U) 6.0 [pH] 5.0-9.0 [facility] ECHOCARDIO M/2D COMPLETEon 1 ECHOCARDIO M/2D COMPLETE Normal [facility] BASIC METABOLIC PANELon 09-0 Calcium [Mass/Vol] 8.6 mg/dL Normal 8.6-10.3 [facility] Comment on above: Order Comment: Yes: Add to Previous draw if able Performed By: #### 5 0972 #### [facility] [address] [place] [address], [facility] Chloride [Moles/Vol] 97 mmol/L Low 98-107 [facility] Comment on above: Order Comment: Yes: Add to Previous draw if able Performed By: #### 5 1423 #### [facility] [address] [place] [address], [facility] CO2 [Moles/Vol] 30 mmol/L Normal 21-31 [facility] Comment on above: Order Comment: Yes: Add to Previous draw if able Performed By: #### 5 0103 #### [facility] [address] [place] [address], [facility] Creatinine [Mass/Vol] 2.14 mg/dL High 0.70-1.30 [facility] Comment on above: Order Comment: Yes: Add to Previous draw if able Performed By: #### 5 0103 #### [facility] [address] [place] [address], [facility] EGFR 32 ml/min/1.73sq m Abnormal >60 [facility] Comment on above: Order Comment: Yes: Add to Previous draw if able Result Comment: The [facility]'s estimated glomerular filtration rate (eGFR) will no longer include consideration of race in its calculation. The National Kidney Foundation's eGFR Task Force developed new recommendations for the estimation of the glomerular filtration rate in the [place] They recommend immediate implementation of the new equation refit without the race variable in all laboratories because the calculation does not include race. In addition to not including race in the calculation and reporting, it included diversity in its development, and has acceptable performance characteristics and potential consequences that do not disproportionately affect any one group of individuals. Performed By: #### 5 0103 #### [facility] [address] [place] [address], [facility] Glucose [Mass/Vol] 90 mg/dL Normal 70-100 [facility] Comment on above: Order Comment: Yes: Add to Previous draw if able Performed By: #### 5 0103 #### [facility] [address] [place] [address], [facility] Potassium [Moles/Vol] 3.7 mmol/L Normal 3.5-5.1 [facility] Comment on above: Order Comment: Yes: Add to Previous draw if able Performed By: #### 5 0103 #### [facility] [address] Sodium [Moles/Vol] 135 mmol/L Low 136-145 [facility] Comment on above: Order Comment: Yes: Add to Previous draw if able Performed By: #### 5 0103 #### [facility] [address] Urea nitrogen [Mass/Vol] 32 mg/dL High 7-25 [facility] Comment on above: Order Comment: Yes: Add to Previous draw if able Performed By: #### 5 0103 #### [facility] [address] *SARS-CoV-2 COVID-19on 05-07 SARS-CoV-2 (COVID-19) RNA ELIZABETH+probe Ql (Unsp spec) Detected Critically abnormal Not Detected [facility] Comment on above: Order Comment: The A ptima SARS-CoV-2 assay is a nucleic acid amplification testintended for the qualitative detection of RNA from SARS-CoV-2 isolatedand purified from nasopharyngeal (DIRECTOR OF SOCIAL WORK), oropharyngeal (OP), nasal swab,sputum, and bronchoalveolar lavage (BAL) specimens from patients withsigns and symptoms of infection who are suspected of COVID-19.Results are for the identification of SARS-CoV-2 RNA. The SARS-CoV-2 RNAis generally detectable during the acute phase of infection.The Aptima SARS-CoV-2 Assay on the [employer] system isintended for use by laboratory personnel specifically instructed andtrained in the operation of the [employer] system. TheAptima SARS-CoV-2 assay is only for use under the Food and DrugAdministration Emergency Use Authorization. Testing is limited tolaboratories certified under the Clinical Laboratory ImprovementAmendments of 1988 (CLIA), 42 U.S.C. ???263a, to perform high complexitytests.Detected:Detected result is indicative of the presence of SARS-CoV-2 RNA;clinical correlation with patient history and other diagnosticinformation is necessary to determine patient infection status.Detection of SARS-CoV-2 RNA does not rule out bacterial infection orco- infection with other viruses. Performed By: #### 3 1792 ####[facility].[address] BASIC METABOLIC PANELon 08-3 0-2021 Calcium [Mass/Vol] 8.4 mg/dL Low 8.6-10.3 [facility] Comment on above: Order Comment: No: D o not add to previous draw Performed By: #### 0 0071, [id number], [id number] ####[facility] [facility] [place] [address], [facility] Chloride [Moles/Vol] 97 mmol/L Low 98-107 The [facility] Comment on above: Order Comment: No: D o not add to previous draw Performed By: #### 0 0071, [id number], [id number] ####[facility] [facility] [place] [address], [facility] CO2 [Moles/Vol] 30 mmol/L Normal 21-31 The [facility] Comment on above: Order Comment: No: D o not add to previous draw Performed By: #### 0 0071, [id number], [id number] ####[facility]3000 [facility].[address] Creatinine [Mass/Vol] 2.06 mg/dL High 0.70-1.30 The [facility] Comment on above: Order Comment: No: D o not add to previous draw Performed By: #### 0 0071, [id number], [id number] ####[facility]3000 [facility].[address] EGFR 34 ml/min/1.73sq m Abnormal >60 [facility] Comment on above: Order Comment: No: D o not add to previous draw Result Comment: The [facility]'s estimated glomerular filtration rate (eGFR) will no longer include consideration of race in its calculation. The National Kidney Foundation's eGFR Task Force developed new recommendations for the estimation of the glomerular filtration rate in the [place] They recommend immediate implementation of the new equation refit without the race variable in all laboratories because the calculation does not include race. In addition to not including race in the calculation and reporting, it included diversity in its development, and has acceptable performance characteristics and potential consequences that do not disproportionately affect any one group of individuals. Performed By: #### 0 0071, [id number], 44042 ####[facility] [facility] [place] [address], [facility] Glucose [Mass/Vol] 86 mg/dL Normal 70-100 The [facility] Comment on above: Order Comment: No: D o not add to previous draw Performed By: #### 0 0071, [id number], [id number] ####[facility] [facility] [place] [address], [facility] Potassium [Moles/Vol] 3.7 mmol/L Normal 3.5-5.1 The [facility] Comment on above: Order Comment: No: D o not add to previous draw Performed By: #### 0 0071, [id number], [id number] ####[facility] [facility] [place] [address], [facility] Sodium [Moles/Vol] 135 mmol/L Low 136-145 The [facility] Comment on above: Order Comment: No: D o not add to previous draw Performed By: #### 0 0071, 38711, 10769 ####[facility] [facility] [place] [address], [facility] Urea nitrogen [Mass/Vol] 35 mg/dL High 7-25 The [facility] Comment on above: Order Comment: No: D o not add to previous draw Performed By: #### 0 0071, [id number], [id number] ####[facility] [facility] [place] [address], [facility] CBC COMPLETE BLOOD COUNTon 0 05-07-2022 Erythrocyte distribution wid th (RBC) [Ratio] 21.2 % High 11.5-15.0 The [facility] Comment on above: Order Comment: No: D o not add to previous draw Performed By: #### 5 0608 #### [facility] [address] [place] [address], [facility] Hematocrit (Bld) [Volume fraction] 36.1 % Low 39.0-50.0 The [facility] Comment on above: Order Comment: No: D o not add to previous draw Performed By: #### 5 0608 #### [facility] [address] [place] [id number], [facility] Hemoglobin (Bld) [Mass/Vol] 10.4 g/dL Low 13.0-17. 0 The [facility] Comment on above: Order Comment: No: D o not add to previous draw Performed By: #### 5 0608 #### [facility] [address] [facility] [place] [id number], [facility] MCH (RBC) [Entitic mass] 23.6 pg Low 27.0-33.0 The [facility] Comment on above: Order Comment: No: D o not add to previous draw Performed By: #### 5 0608 #### [facility] [address] [place] [address], [facility] MCHC (RBC) [Mass/Vol] 28.8 g/dL Low 32.0-35.0 The [facility] Comment on above: Order Comment: No: D o not add to previous draw Performed By: #### 5 0608 #### [facility] [address] [place] [address], [facility] MCV (RBC) [Entitic vol] 81.9 fL Low 82.0-98.0 T [facility] Comment on above: Order Comment: No: D o not add to previous draw Performed By: #### 5 0608 #### [facility] [address] [place] [id number], [facility] Nucleated RBC/100 WBC (Bld) [Ratio] 0 % Normal 0-0 The [facility] Comment on above: Order Comment: No: D o not add to previous draw Performed By: #### 5 0608 #### [facility] [address] [place] [address], [facility] PLAT CNT 207 10*3/uL Normal 150-400 The [facility] Comment on above: Order Comment: No: D o not add to previous draw Performed By: #### 5 0608 #### [facility] [address] [place] [address], [facility] RBC (Bld) [#/Vol] 4.41 10*6/uL Normal 4.20-5.70 The [facility] [place] Comment on above: Order Comment: No: D o not add to previous draw Performed By: #### 5 0608 #### [facility] [address] [facility] [place] [address], [facility] WBC (Bld) [#/Vol] 4.60 10*3/uL Normal 4.00-10.60 The [facility] Comment on above: Order Comment: No: D o not add to previous draw Performed By: #### 5 0608 #### [facility] [address] [facility] [place] [address], [facility] MAGNESIUM BLOODon 05-07-2022 Magnesium [Mass/Vol] 2.3 mg/dL Normal 1.9-2.7 The [facility] Comment on above: Order Comment: No: D o not add to previous draw Performed By: #### 0 0071, 11498, 23165 ####[facility] [facility] [address], [facility] PHOSPHORUS BLOODon Phosphate [Mass/Vol] 2.6 mg/dL Normal 2.5-5.0 The [facility] Comment on above: Order Comment: No: D o not add to previous draw Performed By: #### 0 0071, 37097, 14770 ####[facility] POC SARS COV2 ANTIGEN POSITI VEon 05-07-2022 POC SARS COV2 ANTIGEN POS Positive Critically abnormal NEGATIVE The [facility] Comment on above: Result Comment: Posi tive results indicate the presence of viral antigens, but clinical correlation with patient history and other diagnostic information is necessary to determine infection status. Positive results do not rule out bacterial infection or co-infection with other viruses. The agent detected may not be the definite cause of disease. Laboratories within the [facility] and its territories are required to report all results to the appropriate public health authorities. The Clarity COVID-19 Antigen Rapid Test Cassette is a rapid chromatographic immunoassay intended for the qualitative detection of the nucleocapsid protein antigen from SARS-CoV-2 in direct nasopharyngeal swab (DIRECTOR OF SOCIAL WORK) specimens from individuals who are suspected of COVID-19 by their healthcare provider within the first six days of symptom onset. Testing is limited to laboratories certified under the Clinical Laboratory Improvement Amendments of 1988 (CLIA), 42 U.S.C. ???263a, that meet the requirements to perform moderate complexity, high complexity, or waived tests. This test is authorized for use at the Point of Care (POC), i.e., in patient care settings operating under a CLIA Certificate of Waiver, Certificate of Compliance, or Certificate of Accreditation. Performed By: #### 3 5 #### [facility] [address] BASIC METABOLIC PANELon 04-09 Calcium [Mass/Vol] 8.3 mg/dL Low 8.6-10.3 [facility] Comment on above: Order Comment: No: D o not add to previous draw Performed By: #### 7 0207 #### [facility] [address] Chloride [Moles/Vol] 99 mmol/L Normal 98-107 The [facility] Comment on above: Order Comment: No: D o not add to previous draw Performed By: #### 7 0207 #### [facility] [address] CO2 [Moles/Vol] 30 mmol/L Normal 21-31 The [facility] Comment on above: Order Comment: No: D o not add to previous draw Performed By: #### 7 0207 #### [facility] [address] [place] [address], [facility] Creatinine [Mass/Vol] 2.08 mg/dL High 0.70-1.30 The [facility] Comment on above: Order Comment: No: D o not add to previous draw Performed By: #### 7 0207 #### [facility] [address] [place] [address], [facility] EGFR 34 ml/min/1.73sq m Abnormal >60 The [facility] Comment on above: Order Comment: No: D o not add to previous draw Result Comment: The [facility]'s estimated glomerular filtration rate (eGFR) will no longer include consideration of race in its calculation. The National Kidney Foundation's eGFR Task Force developed new recommendations for the estimation of the glomerular filtration rate in the [place] They recommend immediate implementation of the new equation refit without the race variable in all laboratories because the calculation does not include race. In addition to not including race in the calculation and reporting, it included diversity in its development, and has acceptable performance characteristics and potential consequences that do not disproportionately affect any one group of individuals. Performed By: #### 7 0207 #### [facility] [address] [place] [address], [facility] Glucose [Mass/Vol] 91 mg/dL Normal 70-100 The [facility] Comment on above: Order Comment: No: D o not add to previous draw Performed By: #### 7 0207 #### [facility] [address] [place] [address], [facility] Potassium [Moles/Vol] 3.5 mmol/L Normal 3.5-5.1 The [facility] Comment on above: Order Comment: No: D o not add to previous draw Performed By: #### 7 0207 #### [facility] [address] [place] [address], [facility] Sodium [Moles/Vol] 137 mmol/L Normal 136-145 The [facility] Comment on above: Order Comment: No: D o not add to previous draw Performed By: #### 7 0207 #### [facility] [address] [place] [address], [facility] Urea nitrogen [Mass/Vol] 36 mg/dL High 7-25 The [facility] Comment on above: Order Comment: No: D o not add to previous draw Performed By: #### 7 0207 #### [facility] [address] [facility] [place] [address], [facility] TSH3 WITH REFLEX FT4on 05-06 TSH 3RD GENERATION 2.46 uIU/mL Normal 0.34-5.60 [facility] Comment on above: Performed By: #### 7 0207 #### [facility] [address] [place] [address], [facility] BASIC METABOLIC PANELon 04-09 Calcium [Mass/Vol] 7.9 mg/dL Low 8.6-10.3 The [facility] Comment on above: Order Comment: Check Pacemaker/AICD Lead Position, Chest X-ray PA \EANDE\ LAT in Dept ;DO NOT lift affected arm above shoulder. S/P pacemaker/ICD implant. Verify lead placement Performed By: #### 0 0071 ####[facility] [place] [address], [facility] Chloride [Moles/Vol] 99 mmol/L Normal 98-107 The [facility] Comment on above: Order Comment: Check Pacemaker/AICD Lead Position, Chest X-ray PA \EANDE\ LAT in Dept ;DO NOT lift affected arm above shoulder. S/P pacemaker/ICD implant. Verify lead placement Performed By: #### 0 0071 ####[facility] CO2 [Moles/Vol] 28 mmol/L Normal 21-31 The [facility] Comment on above: Order Comment: Check Pacemaker/AICD Lead Position, Chest X-ray PA \EANDE\ LAT in Dept ;DO NOT lift affected arm above shoulder. S/P pacemaker/ICD implant. Verify lead placement Performed By: #### 0 0071 ####[facility] [facility].[address] Creatinine [Mass/Vol] 2.11 mg/dL High 0.70-1.30 The [facility] Comment on above: Order Comment: Check Pacemaker/AICD Lead Position, Chest X-ray PA \EANDE\ LAT in Dept ;DO NOT lift affected arm above shoulder. S/P pacemaker/ICD implant. Verify lead placement Performed By: #### 0 0071 ####[place] [id number] [address] EGFR 33 ml/min/1.73sq m Abnormal >60 The [facility] Comment on above: Order Comment: Check Pacemaker/AICD Lead Position, Chest X-ray PA \EANDE\ LAT in Dept ;DO NOT lift affected arm above shoulder. S/P pacemaker/ICD implant. Verify lead placement Result Comment: The [facility]'s estimated glomerular filtration rate (eGFR) will no longer include consideration of race in its calculation. The National Kidney Foundation's eGFR Task Force developed new recommendations for the estimation of the glomerular filtration rate in the [place] They recommend immediate implementation of the new equation refit without the race variable in all laboratories because the calculation does not include race. In addition to not including race in the calculation and reporting, it included diversity in its development, and has acceptable performance characteristics and potential consequences that do not disproportionately affect any one group of individuals. Performed By: #### 0 0071 ####[facility] Glucose [Mass/Vol] 95 mg/dL Normal 70-100 The [facility] Comment on above: Order Comment: Check Pacemaker/AICD Lead Position, Chest X-ray PA \EANDE\ LAT in Dept ;DO NOT lift affected arm above shoulder. S/P pacemaker/ICD implant. Verify lead placement Performed By: #### 0 0071 ####[facility] Potassium [Moles/Vol] 3.5 mmol/L Normal 3.5-5.1 [facility] Comment on above: Order Comment: Check Pacemaker/AICD Lead Position, Chest X-ray PA \EANDE\ LAT in Dept ;DO NOT lift affected arm above shoulder. S/P pacemaker/ICD implant. Verify lead placement Performed By: #### 0 0071 ####[facility] Sodium [Moles/Vol] 137 mmol/L Normal 136-145 [facility] Comment on above: Order Comment: Check Pacemaker/AICD Lead Position, Chest X-ray PA \EANDE\ LAT in Dept ;DO NOT lift affected arm above shoulder. S/P pacemaker/ICD implant. Verify lead placement Performed By: #### 0 0071 ####[facility] Urea nitrogen [Mass/Vol] 37 mg/dL High 7-25 The [facility] Comment on above: Order Comment: Check Pacemaker/AICD Lead Position, Chest X-ray PA \EANDE\ LAT in Dept ;DO NOT lift affected arm above shoulder. S/P pacemaker/ICD implant. Verify lead placement Performed By: #### 0 0071 ####[facility] CBC COMPLETE BLOOD COUNTon 05-05-2022 Erythrocyte distribution wid th (RBC) [Ratio] 21.2 % High 11.5-15.0 [facility] Comment on above: Order Comment: Unkno wn Performed By: #### 5 0608 ####[facility] Hematocrit (Bld) [Volume fraction] 35.5 % Low 39.0-50.0 The [facility] Comment on above: Order Comment: Unkno wn Performed By: #### 5 0608 ####[facility] Hemoglobin (Bld) [Mass/Vol] 10.5 g/dL Low 13.0-17. 0 The [facility] Comment on above: Order Comment: Unkno wn Performed By: #### 5 0608 ####[facility] MCH (RBC) [Entitic mass] 23.8 pg Low 27.0-33.0 The [facility] Comment on above: Order Comment: Unkno wn Performed By: #### 5 0608 ####[facility] MCHC (RBC) [Mass/Vol] 29.6 g/dL Low 32.0-35.0 The [facility] Comment on above: Order Comment: Unkno wn Performed By: #### 5 0608 ####[facility] MCV (RBC) [Entitic vol] 80.5 fL Low 82.0-98.0 T [facility] Comment on above: Order Comment: Unkno wn Performed By: #### 5 0608 ####[facility] Nucleated RBC/100 WBC (Bld) [Ratio] 0 % Normal 0-0 The [facility] Comment on above: Order Comment: Unkno wn Performed By: #### 5 0608 ####[facility] [place] [address], [facility] PLAT CNT 161 10*3/uL Normal 150-400 The [facility] Comment on above: Order Comment: Unkno wn Performed By: #### 5 0608 ####[facility] [facility] [place] [address], [facility] RBC (Bld) [#/Vol] 4.41 10*6/uL Normal 4.20-5.70 The [facility] Comment on above: Order Comment: Unkno wn Performed By: #### 5 0608 ####[facility] [facility] [place] [address], [facility] WBC (Bld) [#/Vol] 4.71 10*3/uL Normal 4.00-10.60 The [facility] Comment on above: Order Comment: Unkno wn Performed By: #### 5 0608 ####[facility] [facility] [place] [address], [facility] BASIC METABOLIC PANELon 08-2 Calcium [Mass/Vol] 8.1 mg/dL Low 8.6-10.3 [facility] Comment on above: Order Comment: No: D o not add to previous draw Performed By: #### 3 2044 #### [facility] [address] [place] [id number], [facility] Chloride [Moles/Vol] 97 mmol/L Low 98-107 The [facility] Comment on above: Order Comment: No: D o not add to previous draw Performed By: #### 3 2044 #### [facility] [address] [place] [address], [place] CO2 [Moles/Vol] 31 mmol/L Normal 21-31 The [facility] Comment on above: Order Comment: No: D o not add to previous draw Performed By: #### 3 2044 #### [facility] [address] [place] [id number], [place] Creatinine [Mass/Vol] 1.98 mg/dL High 0.70-1.30 The [facility] Comment on above: Order Comment: No: D o not add to previous draw Performed By: #### 3 2044 #### [facility] [address] [place] [address], [facility] EGFR 36 ml/min/1.73sq m Abnormal >60 The [facility] Comment on above: Order Comment: No: D o not add to previous draw Result Comment: The [facility]'s estimated glomerular filtration rate (eGFR) will no longer include consideration of race in its calculation. The National Kidney Foundation's eGFR Task Force developed new recommendations for the estimation of the glomerular filtration rate in the [place] They recommend immediate implementation of the new equation refit without the race variable in all laboratories because the calculation does not include race. In addition to not including race in the calculation and reporting, it included diversity in its development, and has acceptable performance characteristics and potential consequences that do not disproportionately affect any one group of individuals. Performed By: #### 3 2044 #### [facility] [address] [place] [address], [facility] Glucose [Mass/Vol] 88 mg/dL Normal 70-100 The [facility] Comment on above: Order Comment: No: D o not add to previous draw Performed By: #### 3 2044 #### [facility] [address] [place] [address], [place] Potassium [Moles/Vol] 3.5 mmol/L Normal 3.5-5.1 The [facility] Comment on above: Order Comment: No: D o not add to previous draw Performed By: #### 3 2044 #### [facility] [address] [place] [address], [place] Sodium [Moles/Vol] 137 mmol/L Normal 136-145 The [facility] Comment on above: Order Comment: No: D o not add to previous draw Performed By: #### 3 2044 #### [facility] [address] [place] [address], [place] Urea nitrogen [Mass/Vol] 35 mg/dL High 7-25 The [facility] Comment on above: Order Comment: No: D o not add to previous draw Performed By: #### 3 5 #### [facility] [address] CBC COMPLETE BLOOD COUNTon 0 05-04-2022 Erythrocyte distribution wid th (RBC) [Ratio] 21.2 % High 11.5-15.0 The [facility] Comment on above: Order Comment: No: D o not add to previous draw Performed By: #### 5 0608 ####[facility] [place] [address], [facility] Hematocrit (Bld) [Volume fraction] 34.6 % Low 39.0-50.0 The [facility] Comment on above: Order Comment: No: D o not add to previous draw Performed By: #### 5 0608 ####[facility] Hemoglobin (Bld) [Mass/Vol] 10.2 g/dL Low 13.0-17. 0 The [facility] Comment on above: Order Comment: No: D o not add to previous draw Performed By: #### 5 0608 ####[facility] [place] [address], [facility] MCH (RBC) [Entitic mass] 23.8 pg Low 27.0-33.0 The [facility] Comment on above: Order Comment: No: D o not add to previous draw Performed By: #### 5 0608 ####[facility] [place] [address], [facility] MCHC (RBC) [Mass/Vol] 29.5 g/dL Low 32.0-35.0 The [facility] Comment on above: Order Comment: No: D o not add to previous draw Performed By: #### 5 0608 ####[facility] [facility] [place] [address], [facility] MCV (RBC) [Entitic vol] 80.8 fL Low 82.0-98.0 T he [facility] Comment on above: Order Comment: No: D o not add to previous draw Performed By: #### 5 0608 ####[facility] Nucleated RBC/100 WBC (Bld) [Ratio] 0 % Normal 0-0 The [facility] Comment on above: Order Comment: No: D o not add to previous draw Performed By: #### 5 0608 ####[facility] [place] [address], [facility] PLAT CNT 131 10*3/uL Low 150-400 The [facility] Comment on above: Order Comment: No: D o not add to previous draw Performed By: #### 5 0608 ####[facility] RBC (Bld) [#/Vol] 4.28 10*6/uL Normal 4.20-5.70 The [facility] Comment on above: Order Comment: No: D o not add to previous draw Performed By: #### 5 0608 ####[facility] [facility] [place] [address], [facility] WBC (Bld) [#/Vol] 4.58 10*3/uL Normal 4.00-10.60 The [facility] Comment on above: Order Comment: No: D o not add to previous draw Performed By: #### 5 0608 ####[facility] Cardiovascular Lab Reporton 05-04-2022 Cardiovascular Lab Report [facility] MR #: [id number] Department of Physician: Fidel Scott M.D. Division of Service Date: 05/03/2022 Cardiology Birthdate: 1950 Adult Cardiovascular Room #: [id number] [facility] [address] [place] [address] Cardiovascular Laboratory Report FINAL IMPRESSIONS: 1. 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 2. 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 3. Normal cardiac output/cardiac index. RECOMMENDATIONS: 1. Continue diuresis, strict inputs and outputs and daily weights. 2. Aggressive cardiovascular risk factor modification. 3. Further recommendations deferred to the inpatient services. PROCEDURES: Right heart catheterization via a previously placed right internal jugular sheath. METHODS: After risks, benefits, and alternatives were explained, written informed consent was obtained. The patient was prepped and draped in usual sterile fashion over the right neck including over the hub of the previously placed Eupora sheath. A Evangelista catheter was advanced through Eupora sheath; pressures were measured in the right atrium, right ventricle, pulmonary artery, and pulmonary capillary wedge positions. Oxygen saturations were obtained and cardiac output/cardiac index was calculated using the modified Eliud principle. The Evangelista catheter was removed. The Eupora sheath was to be removed with application of manual pressure to achieve optimal hemostasis. Overall, the patient tolerated the procedure well. There were no overt complications. He was to be transferred to his hospital room in stable condition. FINDINGS: Hemodynamics. 1. AO 126/69 (84). 2. RA 10. 3. RV 55/7, 12. 4. PA 55/21 (36). 5. PCWP 21. 6. TPG 15. 7. Cardiac output 7.31/cardiac index 3.13. 8. AO sat 100%/PA sat 66. INDICATIONS: Congestive heart failure. Electronically Signed by: Mark Iniguez M.D. 05/07/2022 02:08 P Mark Iniguez M.D. Date Dict: 05/03/2022/05:07 P/Mark Iniguez M.D. Date Trans: 05/04/2022 05:38 A/surekha CHANDLER_[id number] cc: Li Cintron M.D. Heart Failure/ Transplant Mailstop [address] [address] Normal The [facility] BASIC METABOLIC PANELon 04-09 Calcium [Mass/Vol] 7.8 mg/dL Low 8.6-10.3 [facility] Comment on above: Order Comment: Check Pacemaker/AICD Lead Position, Chest X-ray PA \EANDE\ LAT in Dept ;DO NOT lift affected arm above shoulder. S/P pacemaker/ICD implant. Verify lead placement Performed By: #### 4 1000, 14788, 86940 ####[facility] [facility] [place] [address], [facility] Chloride [Moles/Vol] 98 mmol/L Normal 98-107 [facility] Comment on above: Order Comment: Check Pacemaker/AICD Lead Position, Chest X-ray PA \EANDE\ LAT in Dept ;DO NOT lift affected arm above shoulder. S/P pacemaker/ICD implant. Verify lead placement Performed By: #### 4 1000, 77907, 73508 ####[facility] [place] [address], [facility] CO2 [Moles/Vol] 31 mmol/L Normal 21-31 [facility] Comment on above: Order Comment: Check Pacemaker/AICD Lead Position, Chest X-ray PA \EANDE\ LAT in Dept ;DO NOT lift affected arm above shoulder. S/P pacemaker/ICD implant. Verify lead placement Performed By: #### 4 1000, 96450, 17179 ####[facility] [place] [address], [facility] Creatinine [Mass/Vol] 2.19 mg/dL High 0.70-1.30 The [facility] Comment on above: Order Comment: Check Pacemaker/AICD Lead Position, Chest X-ray PA \EANDE\ LAT in Dept ;DO NOT lift affected arm above shoulder. S/P pacemaker/ICD implant. Verify lead placement Performed By: #### 4 1000, 40471, 93489 ####[facility] EGFR 32 ml/min/1.73sq m Abnormal >60 The [facility] Comment on above: Order Comment: Check Pacemaker/AICD Lead Position, Chest X-ray PA \EANDE\ LAT in Dept ;DO NOT lift affected arm above shoulder. S/P pacemaker/ICD implant. Verify lead placement Result Comment: The [facility]'s estimated glomerular filtration rate (eGFR) will no longer include consideration of race in its calculation. The National Kid[employer] Foundation's eGFR Task Force developed new recommendations for the estimation of the glomerular filtration rate in the [place] They recommend immediate implementation of the new equation refit without the race variable in all laboratories because the calculation does not include race. In addition to not including race in the calculation and reporting, it included diversity in its development, and has acceptable performance characteristics and potential consequences that do not disproportionately affect any one group of individuals. Performed By: #### 4 999, 90202, 31553 ####[facility] [facility].[address] Glucose [Mass/Vol] 95 mg/dL Normal 70-100 The [facility] Comment on above: Order Comment: Check Pacemaker/AICD Lead Position, Chest X-ray PA \EANDE\ LAT in Dept ;DO NOT lift affected arm above shoulder. S/P pacemaker/ICD implant. Verify lead placement Performed By: #### 4 999, 85110, 47773 ####[facility] [facility] [place] [address], [facility] Potassium [Moles/Vol] 3.3 mmol/L Low 3.5-5.1 The [facility] Comment on above: Order Comment: Check Pacemaker/AICD Lead Position, Chest X-ray PA \EANDE\ LAT in Dept ;DO NOT lift affected arm above shoulder. S/P pacemaker/ICD implant. Verify lead placement Performed By: #### 4 999, 04183, 09664 ####[facility] [facility].[address] Sodium [Moles/Vol] 137 mmol/L Normal 136-145 The [facility] Comment on above: Order Comment: Check Pacemaker/AICD Lead Position, Chest X-ray PA \EANDE\ LAT in Dept ;DO NOT lift affected arm above shoulder. S/P pacemaker/ICD implant. Verify lead placement Performed By: #### 4 1000, 26678, 70934 ####[facility] Urea nitrogen [Mass/Vol] 39 mg/dL High 7-25 The [facility] Comment on above: Order Comment: Check Pacemaker/AICD Lead Position, Chest X-ray PA \EANDE\ LAT in Dept ;DO NOT lift affected arm above shoulder. S/P pacemaker/ICD implant. Verify lead placement Performed By: #### 4 1000, 56334, 78489 ####[facility] CBC W/DIFFon 05-03-2022 ABS IMM GRANS 0.0 10*3/uL Normal 0.0-0.2 The [facility] Comment on above: Order Comment: No: D o not add to previous draw Performed By: #### 5 0608 #### [facility] [address] ABS NEUTROPHILS 3.8 10*3/uL Normal 1.6-7.6 The [facility] Comment on above: Order Comment: No: D o not add to previous draw Performed By: #### 5 0608 #### [facility] [address] [facility] [place] [address], [facility] Basophils (Bld) [#/Vol] 0.0 10*3/uL Normal 0.0-0.2 The [facility] Comment on above: Order Comment: No: D o not add to previous draw Performed By: #### 5 0608 #### [facility] [address] [place] [address], [facility] Basophils/100 WBC (Bld) 0.4 % Normal 0.0-1.0 T win [facility] Comment on above: Order Comment: No: D o not add to previous draw Performed By: #### 5 0608 #### [facility] [address] [place] [address], [facility] Eosinophils (Bld) [#/Vol] 0.3 10*3/uL Normal 0.0-0.5 The [facility] Comment on above: Order Comment: No: D o not add to previous draw Performed By: #### 5 0608 #### [facility] [address] [place] [address], [facility] Eosinophils/100 WBC (Bld) 5.9 % Normal 0.0-6.0 The [facility] Comment on above: Order Comment: No: D o not add to previous draw Performed By: #### 5 0608 #### [facility] [address] [facility] Erythrocyte distribution wid th (RBC) [Ratio] 20.8 % High 11.5-15.0 The [facility] Comment on above: Order Comment: No: D o not add to previous draw Performed By: #### 5 0608 #### [facility] [address] [place] [address], [facility] Hematocrit (Bld) [Volume fraction] 31.0 % Low 39.0-50.0 The [facility] Comment on above: Order Comment: No: D o not add to previous draw Performed By: #### 5 0608 #### [facility] [address] [place] [address], [facility] Hemoglobin (Bld) [Mass/Vol] 9.2 g/dL Low 13.0-17. 0 The [facility] Comment on above: Order Comment: No: D o not add to previous draw Performed By: #### 5 0608 #### [facility] [address] [place] [address], [facility] IMMATURE GRANS 0.6 % Normal 0.0-1.0 The [facility] Comment on above: Order Comment: No: D o not add to previous draw Performed By: #### 5 0608 #### [facility] [address] [place] [address], [facility] Lymphocytes (Bld) [#/Vol] 0.6 10*3/uL Low 1.2-4.0 The [facility] Comment on above: Order Comment: No: D o not add to previous draw Performed By: #### 5 0608 #### [facility] [address] [facility] [place] [address], [facility] Lymphocytes/100 WBC (Bld) 11.3 % Low 20.0-45.0 The [facility] Comment on above: Order Comment: No: D o not add to previous draw Performed By: #### 5 0608 #### [facility] [address] [facility] [place] [address], [facility] MCH (RBC) [Entitic mass] 24.0 pg Low 27.0-33.0 The [facility] Comment on above: Order Comment: No: D o not add to previous draw Performed By: #### 5 0608 #### [facility] [address] [place] [address], [facility] MCHC (RBC) [Mass/Vol] 29.7 g/dL Low 32.0-35.0 The [facility] Comment on above: Order Comment: No: D o not add to previous draw Performed By: #### 5 0608 #### [facility] [address] [place] [address], [facility] MCV (RBC) [Entitic vol] 80.9 fL Low 82.0-98.0 T win [facility] Comment on above: Order Comment: No: D o not add to previous draw Performed By: #### 5 0608 #### [facility] [address] [place] [address], [facility] Monocytes (Bld) [#/Vol] 0.4 10*3/uL Normal 0.1-1.0 [facility] Comment on above: Order Comment: No: D o not add to previous draw Performed By: #### 5 0608 #### [facility] [address] [place] [address], [place] MONOS 8.2 % Normal 5.0-12.0 The [facility] Comment on above: Order Comment: No: D o not add to previous draw Performed By: #### 5 0608 #### [facility] [address] [place] [address], [place] Neutrophils/100 WBC (Bld) 73.6 % High 40.0-72.0 The [facility] Comment on above: Order Comment: No: D o not add to previous draw Performed By: #### 5 0608 #### [facility] [address] [place] [address], [place] Nucleated RBC/100 WBC (Bld) [Ratio] 0 % Normal 0-0 The [facility] Comment on above: Order Comment: No: D o not add to previous draw Performed By: #### 5 0608 #### [facility] [address] [place] [address], [place] PLAT CNT 131 10*3/uL Low 150-400 The [facility] Comment on above: Order Comment: No: D o not add to previous draw Performed By: #### 5 0608 #### [facility] [address] [place] [address], [place] RBC (Bld) [#/Vol] 3.83 10*6/uL Low 4.20-5.70 The [facility] [place] Comment on above: Order Comment: No: D o not add to previous draw Performed By: #### 5 0608 #### [facility] [address] [place] [address], [place] WBC (Bld) [#/Vol] 5.22 10*3/uL Normal 4.00-10.60 [facility] Comment on above: Order Comment: No: D o not add to previous draw Performed By: #### 5 0608 #### [facility] [address] [place] [address], [facility] MAGNESIUM BLOODon 05-03-2022 Magnesium [Mass/Vol] 2.0 mg/dL Normal 1.9-2.7 The [facility] Comment on above: Order Comment: Check Pacemaker/AICD Lead Position, Chest X-ray PA \EANDE\ LAT in Dept ;DO NOT lift affected arm above shoulder. S/P pacemaker/ICD implant. Verify lead placement Performed By: #### 4 1000, 05861, 53867 ####[facility] [facility] [place] [address], [facility] PHOSPHORUS BLOODon Phosphate [Mass/Vol] 2.2 mg/dL Low 2.5-5.0 The [facility] Comment on above: Order Comment: Check Pacemaker/AICD Lead Position, Chest X-ray PA \EANDE\ LAT in Dept ;DO NOT lift affected arm above shoulder. S/P pacemaker/ICD implant. Verify lead placement Performed By: #### 4 1000, 07028, 06218 ####[facility] [facility].[address] BASIC METABOLIC PANELon 04-09 Calcium [Mass/Vol] 7.8 mg/dL Low 8.6-10.3 [facility] Comment on above: Order Comment: No: D o not add to previous draw Performed By: #### 5 0103 #### [facility] [address] [place] [address], [facility] Chloride [Moles/Vol] 98 mmol/L Normal 98-107 The [facility] Comment on above: Order Comment: No: D o not add to previous draw Performed By: #### 5 0103 #### [facility] [address] [place] [address], [facility] CO2 [Moles/Vol] 29 mmol/L Normal 21-31 The [facility] Comment on above: Order Comment: No: D o not add to previous draw Performed By: #### 5 0103 #### [facility] [address] [place] [address], [facility] Creatinine [Mass/Vol] 2.26 mg/dL High 0.70-1.30 The [facility] Comment on above: Order Comment: No: D o not add to previous draw Performed By: #### 5 0103 #### [facility] [address] [place] [address], [facility] EGFR 30 ml/min/1.73sq m Abnormal >60 The [facility] Comment on above: Order Comment: No: D o not add to previous draw Result Comment: The [facility]'s estimated glomerular filtration rate (eGFR) will no longer include consideration of race in its calculation. The National Kid[employer] Foundation's eGFR Task Force developed new recommendations for the estimation of the glomerular filtration rate in the [place] They recommend immediate implementation of the new equation refit without the race variable in all laboratories because the calculation does not include race. In addition to not including race in the calculation and reporting, it included diversity in its development, and has acceptable performance characteristics and potential consequences that do not disproportionately affect any one group of individuals. Performed By: #### 5 0103 #### [facility] [address] [place] [address], [facility] Glucose [Mass/Vol] 91 mg/dL Normal 70-100 The [facility] Comment on above: Order Comment: No: D o not add to previous draw Performed By: #### 5 0103 #### [facility] [address] [place] [address], [facility] Potassium [Moles/Vol] 3.5 mmol/L Normal 3.5-5.1 The [facility] Comment on above: Order Comment: No: D o not add to previous draw Performed By: #### 5 0103 #### [facility] [address] [place] [address], [facility] Sodium [Moles/Vol] 135 mmol/L Low 136-145 The [facility] Comment on above: Order Comment: No: D o not add to previous draw Performed By: #### 5 0103 #### [facility] [address] [place] [address], [facility] Urea nitrogen [Mass/Vol] 46 mg/dL High 7-25 The [facility] Comment on above: Order Comment: No: D o not add to previous draw Performed By: #### 5 3 #### [facility] [address] [place] [address], [facility] CBC COMPLETE BLOOD COUNTon 0 05-02-2022 Erythrocyte distribution wid th (RBC) [Ratio] 20.4 % High 11.5-15.0 The [facility] Comment on above: Order Comment: No: D o not add to previous draw Performed By: #### 5 0608 #### [facility] [address] [place] [address], [facility] Hematocrit (Bld) [Volume fraction] 29.9 % Low 39.0-50.0 The [facility] Comment on above: Order Comment: No: D o not add to previous draw Performed By: #### 5 0608 #### [facility] [address] [place] [address], [facility] Hemoglobin (Bld) [Mass/Vol] 8.9 g/dL Low 13.0-17. 0 The [facility] Comment on above: Order Comment: No: D o not add to previous draw Performed By: #### 5 0608 #### [facility] [address] [place] [id number], [facility] MCH (RBC) [Entitic mass] 24.1 pg Low 27.0-33.0 The [facility] Comment on above: Order Comment: No: D o not add to previous draw Performed By: #### 5 0608 #### [facility] [address] [place] [id number], [facility] MCHC (RBC) [Mass/Vol] 29.8 g/dL Low 32.0-35.0 The [facility] Comment on above: Order Comment: No: D o not add to previous draw Performed By: #### 5 0608 #### [facility] [address] [place] [id number], [facility] MCV (RBC) [Entitic vol] 80.8 fL Low 82.0-98.0 T he [facility] Comment on above: Order Comment: No: D o not add to previous draw Performed By: #### 5 0608 #### [facility] [address] [place] [id number], [facility] Nucleated RBC/100 WBC (Bld) [Ratio] 0 % Normal 0-0 The [facility] Comment on above: Order Comment: No: D o not add to previous draw Performed By: #### 5 0608 #### [facility] [address] [place] [id number], [place] PLAT CNT 130 10*3/uL Low 150-400 The [facility] Comment on above: Order Comment: No: D o not add to previous draw Performed By: #### 5 0608 #### [facility] [address] [place] [id number], [facility] RBC (Bld) [#/Vol] 3.70 10*6/uL Low 4.20-5.70 The [facility] Comment on above: Order Comment: No: D o not add to previous draw Performed By: #### 5 0608 #### [facility] [address] [place] [address], [place] WBC (Bld) [#/Vol] 4.68 10*3/uL Normal 4.00-10.60 The [facility] Comment on above: Order Comment: No: D o not add to previous draw Performed By: #### 5 0608 #### [facility] [address] [place] [address], [facility] MAGNESIUM BLOODon 05-02-2022 Magnesium [Mass/Vol] 2.0 mg/dL Normal 1.9-2.7 The [facility] Comment on above: Order Comment: No: D o not add to previous draw Performed By: #### 5 0103 #### [facility] [address] [place] [address], [facility] PHOSPHORUS BLOODon Phosphate [Mass/Vol] 2.5 mg/dL Normal 2.5-5.0 The [facility] Comment on above: Order Comment: No: D o not add to previous draw Performed By: #### 5 0103 #### [facility] [address] [place] [address], [facility] BASIC METABOLIC PANELon 04-09 Calcium [Mass/Vol] 8.0 mg/dL Low 8.6-10.3 [facility] Comment on above: Order Comment: Check Pacemaker/AICD Lead Position, Chest X-ray PA \EANDE\ LAT in Dept ;DO NOT lift affected arm above shoulder. S/P pacemaker/ICD implant. Verify lead placement Performed By: #### 4 999, 98685, 06874 ####[facility] [facility] [place] [address], [facility] Chloride [Moles/Vol] 99 mmol/L Normal 98-107 The [facility] Comment on above: Order Comment: Check Pacemaker/AICD Lead Position, Chest X-ray PA \EANDE\ LAT in Dept ;DO NOT lift affected arm above shoulder. S/P pacemaker/ICD implant. Verify lead placement Performed By: #### 4 1000, 06222, 94092 ####[facility] [place] [address], [facility] CO2 [Moles/Vol] 31 mmol/L Normal 21-31 [facility] Comment on above: Order Comment: Check Pacemaker/AICD Lead Position, Chest X-ray PA \EANDE\ LAT in Dept ;DO NOT lift affected arm above shoulder. S/P pacemaker/ICD implant. Verify lead placement Performed By: #### 4 1000, 15797, 71040 ####[facility] [facility].[address] Creatinine [Mass/Vol] 2.48 mg/dL High 0.70-1.30 The [facility] Comment on above: Order Comment: Check Pacemaker/AICD Lead Position, Chest X-ray PA \EANDE\ LAT in Dept ;DO NOT lift affected arm above shoulder. S/P pacemaker/ICD implant. Verify lead placement Performed By: #### 4 1000, 26474, 58288 ####[facility] [facility].[address] EGFR 27 ml/min/1.73sq m Abnormal >60 [facility]: Order Comment: Check Pacemaker/AICD Lead Position, Chest X-ray PA \EANDE\ LAT in Dept ;DO NOT lift affected arm above shoulder. S/P pacemaker/ICD implant. Verify lead placement Result Comment: The [facility]'s estimated glomerular filtration rate (eGFR) will no longer include consideration of race in its calculation. The [employer]'s eGFR Task Force developed new recommendations for the estimation of the glomerular filtration rate in the [place] They recommend immediate implementation of the new equation refit without the race variable in all laboratories because the calculation does not include race. In addition to not including race in the calculation and reporting, it included diversity in its development, and has acceptable performance characteristics and potential consequences that do not disproportionately affect any one group of individuals. Performed By: #### 4 1000, 55760, 01136 ####[facility] [facility].[address] Glucose [Mass/Vol] 83 mg/dL Normal 70-100 The [facility] Comment on above: Order Comment: Check Pacemaker/AICD Lead Position, Chest X-ray PA \EANDE\ LAT in Dept ;DO NOT lift affected arm above shoulder. S/P pacemaker/ICD implant. Verify lead placement Performed By: #### 4 1000, 98320, 71652 ####[facility] Potassium [Moles/Vol] 3.5 mmol/L Normal 3.5-5.1 [facility] Comment on above: Order Comment: Check Pacemaker/AICD Lead Position, Chest X-ray PA \EANDE\ LAT in Dept ;DO NOT lift affected arm above shoulder. S/P pacemaker/ICD implant. Verify lead placement Performed By: #### 4 1000, 18421, 31531 ####[facility] Sodium [Moles/Vol] 137 mmol/L Normal 136-145 [facility] Comment on above: Order Comment: Check Pacemaker/AICD Lead Position, Chest X-ray PA \EANDE\ LAT in Dept ;DO NOT lift affected arm above shoulder. S/P pacemaker/ICD implant. Verify lead placement Performed By: #### 4 1000, 37012, 62386 ####[facility] Urea nitrogen [Mass/Vol] 49 mg/dL High 7-25 [facility] Comment on above: Order Comment: Check Pacemaker/AICD Lead Position, Chest X-ray PA \EANDE\ LAT in Dept ;DO NOT lift affected arm above shoulder. S/P pacemaker/ICD implant. Verify lead placement Performed By: #### 4 1000, 51931, 08441 ####[facility]3000 [facility].[address] CBC COMPLETE BLOOD COUNTon 0 - Erythrocyte distribution wid th (RBC) [Ratio] 20.6 % High 11.5-15.0 [facility] Comment on above: Order Comment: No: D o not add to previous draw Performed By: #### 5 0608 #### [facility] [address] [place] [address], [facility] Hematocrit (Bld) [Volume fraction] 28.9 % Low 39.0-50.0 The [facility] Comment on above: Order Comment: No: D o not add to previous draw Performed By: #### 5 0608 #### [facility] [address] [place] [address], [facility] Hemoglobin (Bld) [Mass/Vol] 8.6 g/dL Low 13.0-17. 0 The [facility] Comment on above: Order Comment: No: D o not add to previous draw Performed By: #### 5 0608 #### [facility] [address] [place] [address], [facility] MCH (RBC) [Entitic mass] 24.1 pg Low 27.0-33.0 The [facility] Comment on above: Order Comment: No: D o not add to previous draw Performed By: #### 5 0608 #### [facility] [address] MCHC (RBC) [Mass/Vol] 29.8 g/dL Low 32.0-35.0 The [facility] Comment on above: Order Comment: No: D o not add to previous draw Performed By: #### 5 0608 #### [facility] [address] [place] [address], [facility] MCV (RBC) [Entitic vol] 81.0 fL Low 82.0-98.0 T win [facility] Comment on above: Order Comment: No: D o not add to previous draw Performed By: #### 5 0608 #### [facility] [address] [place] [address], [facility] Nucleated RBC/100 WBC (Bld) [Ratio] 0 % Normal 0-0 The [facility] Comment on above: Order Comment: No: D o not add to previous draw Performed By: #### 5 0608 #### [facility] [address] [place] [address], [place] PLAT CNT 130 10*3/uL Low 150-400 The [facility] Comment on above: Order Comment: No: D o not add to previous draw Performed By: #### 5 0608 #### [facility] [address] [place] [address], [facility] RBC (Bld) [#/Vol] 3.57 10*6/uL Low 4.20-5.70 The [facility] Comment on above: Order Comment: No: D o not add to previous draw Performed By: #### 5 0608 #### [facility] 3000 [facility] [place] [address], [facility] WBC (Bld) [#/Vol] 4.33 10*3/uL Normal 4.00-10.60 The [facility] Comment on above: Order Comment: No: D o not add to previous draw Performed By: #### 5 0608 #### [facility] 3000 [facility]. [address] COOXIMETRYon 05-01-2022 COHB 2 % Normal The [facility] Comment on above: Performed By: #### 7 0207 #### [facility] 3000 [facility]. [address] METHB 1 % Normal The [facility] Comment on above: Performed By: #### 7 0207 #### [facility] 3000 [facility]. [address] Oxygen saturation in Blood 71.0 % Normal 65.0-75.0 The [facility] Comment on above: Performed By: #### 7 0207 #### [facility] 3000 [facility] [place] [address], [facility] THB 9.0 g/dL Normal The [facility] Comment on above: Performed By: #### 7 7 #### [facility] 3000 [facility] [place] [address], [facility] MAGNESIUM BLOODon 05-01-2022 Magnesium [Mass/Vol] 2.1 mg/dL Normal 1.9-2.7 The [facility] Comment on above: Order Comment: Check Pacemaker/AICD Lead Position, Chest X-ray PA \EANDE\ LAT in Dept ;DO NOT lift affected arm above shoulder. S/P pacemaker/ICD implant. Verify lead placement Performed By: #### 4 1000, 39917, 70125 ####[facility] PHOSPHORUS BLOODon Phosphate [Mass/Vol] 3.6 mg/dL Normal 2.5-5.0 The [facility] Comment on above: Order Comment: Check Pacemaker/AICD Lead Position, Chest X-ray PA \EANDE\ LAT in Dept ;DO NOT lift affected arm above shoulder. S/P pacemaker/ICD implant. Verify lead placement Performed By: #### 4 1000, 84282, 25030 ####[place] [id number] [address] PORTABLE CHEST 1 VIEWon 04-09 PORTABLE CHEST 1 VIEW [facility] Department of Radiology [address] [place] [address] Patient Name: MAN PATEL : 1950 Sex: M Age: Race: White Pt. Location: [place] [address] Patient Status: I Ordered Date: 05/01/2022 10:35:00 AM Completed Date: 05/01/2022 11:13 AM Requesting Provider: AMANDA REYES Attending Provider: KAITLYN ENRIQUEZ Report Copy To: Signs & Symptoms: Shortness of Breath History: Comments: Check Line Position Exam: PORTABLE CHEST 1 VIEW PORTABLE CHEST 1 VIEW 05/01/2022 11:13 AM CLINICAL INDICATIONS: Shortness of Breath TECHNOLOGIST COMMENTS: Check Line Position QUESTION FOR THE RADIOLOGIST: Check Line Position PROTOCOL: AP(PA) view was obtained. COMPARISON: Chest radiograph dated 08/01/2021 FINDINGS: Eupora-Eleazar catheter placed via right internal jugular approach has tip in the right pulmonary artery. Dual-chamber pacemaker placed left subclavian approach. Moderate cardiomegaly. Moderate CHF. No pleural effusion. No pneumothorax. IMPRESSION: Moderate cardiomegaly. Moderate CHF. Electronically signed: Aldo Montana. Transcribed by: [id number], User Resident: Electronically Signed by: ALDO MONTANA @ 05/01/2022 11:[address] [facility] Comment on above: Order Comment: Check Line Position *BLOOD CULTUREon 04-30-2022 *BLOOD CULTURE Clinical Report: (D) Specimen: BLOOD CULTURE Collected: 04/29/2022 23:47 Status: Final Last Updated: 05/05/2022 06:59 CULT RES (Final) No Growth Day 5 Normal [facility] Comment on above: Performed By: #### 3 0313 ####[facility] *BLOOD CULTURE Clinical Report: (D) Specimen: BLOOD CULTURE Collected: 04/29/2022 23:43 Status: Final Last Updated: 05/05/2022 06:59 CULT RES (Final) No Growth Day 5 Normal [facility] Comment on above: Performed By: #### 3 0313 #### [facility] [address] BASIC METABOLIC PANELon 04-09 Calcium [Mass/Vol] 8.0 mg/dL Low 8.6-10.3 [facility] Comment on above: Order Comment: No: D o not add to previous draw Performed By: #### 4 5506, 36567, 50373, 94831 ####[facility]3000 [facility] [place] [address], [facility] Chloride [Moles/Vol] 100 mmol/L Normal 98-107 The [facility] Comment on above: Order Comment: No: D o not add to previous draw Performed By: #### 4 5506, 47569, 20318, 08005 ####[facility]3000 [facility] [place] [address], [facility] CO2 [Moles/Vol] 31 mmol/L Normal 21-31 The [facility] Comment on above: Order Comment: No: D o not add to previous draw Performed By: #### 4 5506, 23311, 36884, 03359 ####[facility]3000 [facility] [place] [address], [facility] Creatinine [Mass/Vol] 2.53 mg/dL High 0.70-1.30 The [facility] Comment on above: Order Comment: No: D o not add to previous draw Performed By: #### 4 5506, 12945, 12516, 81731 ####[facility]3000 [facility].[address] EGFR 27 ml/min/1.73sq m Abnormal >60 The [facility] Comment on above: Order Comment: No: D o not add to previous draw Result Comment: The [facility]'s estimated glomerular filtration rate (eGFR) will no longer include consideration of race in its calculation. The National Kidney Foundation's eGFR Task Force developed new recommendations for the estimation of the glomerular filtration rate in the [place] They recommend immediate implementation of the new equation refit without the race variable in all laboratories because the calculation does not include race. In addition to not including race in the calculation and reporting, it included diversity in its development, and has acceptable performance characteristics and potential consequences that do not disproportionately affect any one group of individuals. Performed By: #### 4 5506, 99022, 70351, 51097 ####[facility] [place] [address], [facility] Glucose [Mass/Vol] 94 mg/dL Normal 70-100 The [facility] Comment on above: Order Comment: No: D o not add to previous draw Performed By: #### 4 5506, 30888, 01410, 23639 ####[facility] [place] [address], [facility] Potassium [Moles/Vol] 3.5 mmol/L Normal 3.5-5.1 The [facility] Comment on above: Order Comment: No: D o not add to previous draw Performed By: #### 4 5506, 72226, 87271, 26520 ####[facility] [place] [address], [facility] Sodium [Moles/Vol] 139 mmol/L Normal 136-145 The [facility] Comment on above: Order Comment: No: D o not add to previous draw Performed By: #### 4 5506, 15140, 84001, 93083 ####[facility]3000 [facility] [place] [address], [facility] Urea nitrogen [Mass/Vol] 49 mg/dL High 7-25 The [facility] Comment on above: Order Comment: No: D o not add to previous draw Performed By: #### 4 5506, 77568, 61632, 77241 ####[facility] [place] [address], [facility] CBC COMPLETE BLOOD COUNTon 0 8- Erythrocyte distribution wid th (RBC) [Ratio] 20.8 % High 11.5-15.0 The [facility] Comment on above: Order Comment: No: D o not add to previous draw Performed By: #### 5 0608 #### [facility] [address] [place] [address], [place] Hematocrit (Bld) [Volume fraction] 28.3 % Low 39.0-50.0 The [facility] Comment on above: Order Comment: No: D o not add to previous draw Performed By: #### 5 0608 #### [facility] [address] [place] [address], [facility] Hemoglobin (Bld) [Mass/Vol] 8.5 g/dL Low 13.0-17. 0 The [facility] Comment on above: Order Comment: No: D o not add to previous draw Performed By: #### 5 0608 #### [facility] [address] [place] [address], [facility] MCH (RBC) [Entitic mass] 24.3 pg Low 27.0-33.0 The [facility] Comment on above: Order Comment: No: D o not add to previous draw Performed By: #### 5 0608 #### [facility] [address] [place] [address], [facility] MCHC (RBC) [Mass/Vol] 30.0 g/dL Low 32.0-35.0 The [facility] Comment on above: Order Comment: No: D o not add to previous draw Performed By: #### 5 0608 #### [facility] [address] [place] [address], [facility] MCV (RBC) [Entitic vol] 80.9 fL Low 82.0-98.0 T win [facility] Comment on above: Order Comment: No: D o not add to previous draw Performed By: #### 5 0608 #### [facility] [address] [place] [address], [facility] Nucleated RBC/100 WBC (Bld) [Ratio] 0 % Normal 0-0 The [facility] Comment on above: Order Comment: No: D o not add to previous draw Performed By: #### 5 0608 #### [facility] [address] [place] [address], [facility] PLAT CNT 139 10*3/uL Low 150-400 The [facility] Comment on above: Order Comment: No: D o not add to previous draw Performed By: #### 5 0608 #### [facility] [address] [place] [address], [facility] RBC (Bld) [#/Vol] 3.50 10*6/uL Low 4.20-5.70 The [facility] Comment on above: Order Comment: No: D o not add to previous draw Performed By: #### 5 0608 #### [facility] [address] [place] [address], [place] WBC (Bld) [#/Vol] 4.28 10*3/uL Normal 4.00-10.60 The [facility] Comment on above: Order Comment: No: D o not add to previous draw Performed By: #### 5 0608 #### [facility] [address] [place] [address], [facility] COOXIMETRYon 04-30-2022 COHB 2 % Normal The [facility] Comment on above: Performed By: #### 3 0313 #### [facility] [address] [place] [id number], [facility] METHB 1 % Normal The [facility] Comment on above: Performed By: #### 3 0313 #### [facility] [address] [place] [address], [facility] Oxygen saturation in Blood 69.0 % Normal 65.0-75.0 The [facility] Comment on above: Performed By: #### 3 0313 #### [facility] [address] [place] [id number], [facility] THB 12.0 g/dL Normal The [facility] Comment on above: Performed By: #### 3 0313 #### [facility] [address] [place] [address], [facility] Cardiovascular Lab Reporton 04-30-2022 Cardiovascular Lab Report [facility] Patient Name: [facility] Man Ace MR #: [id number] Department of Physician: Fidel Flowers M.D. Division of Service Date: 04/29/2022 Cardiology Birthdate: 1950 Adult Cardiovascular Room #: KASANDRA [id number] [facility] [address] [place], [place] [address] Cardiovascular Laboratory Report CLINICAL PRESENTATION: The patient is a 72-year-old male with past medical history significant for CAD, status post CABG, heart failure with EF 40%, CKD with acute kidney injury, atrial fibrillation on Eliquis, pacemaker, and hypertension. The patient was admitted with shortness of breath and lower extremity edema concerning for qrlon-ev-mnzcdqx systolic heart failure. He has worsening renal function consistent with acute kidney injury. He is referred for right heart catheterization. FINAL IMPRESSION: 1. Right heart catheterization shows severe decompensated heart failure with mean wedge pressure of 30 mmHg. The right atrial pressure is also severely elevated at 16 mmHg. 2. The cardiac output and cardiac index are preserved. 3. There is moderate pulmonary hypertension, which is mostly secondary to left heart failure. PLAN: 1. Given worsening renal function, we will place Eupora-Eleazar catheter for invasive hemodynamic monitoring in the ICU. The patient will likely require milrinone inotrope therapy. 2. Remainder of plan per Cardiology Service. 3. There was tracing of severe V-waves, which could be seen in mitral regurgitation. Correlation with echocardiogram is recommended. PROCEDURES: Right heart catheterization, ultrasound guidance for vascular access. INDICATION: Vlaxf-tu-upabtrd systolic heart failure. PROCEDURE DESCRIPTION: The patient was brought to cardiac catheterization lab in a fasting state. Informed written consent was obtained. He was prepped and draped in usual sterile fashion in the right neck. Time-out was performed. He was given Versed and fentanyl for sedation. A 1% lidocaine was infiltrated in the right internal jugular vein. Using ultrasound guidance and micropuncture access technique, a 6-Danish sheath was placed in the right internal jugular vein. Evangelista catheter was advanced under fluoroscopic and hemodynamic monitoring to the right atrium. Pressure was obtained in the right atrium, right ventricle, pulmonary artery, pulmonary capillary wedge position. Oxygen saturations were drawn from the pulmonary artery. Eliud cardiac output and cardiac index were calculated. Evangelista catheter was then removed. Next, I reviewed the findings with the Cardiology Service. Due to worsening renal function, we agreed to place a Eupora-Eleazar catheter for monitoring in the ICU. Next, using a wire, I exchanged the sheath to an 8-Danish Cordis sheath. This was sutured to the skin. Next, I advanced Alarcon VIP BLANKMAKER Eupora-Eleazar catheter to the pulmonary artery position. The catheter was secured in place. The procedure was then completed. There were no apparent complications. FINDINGS: 1. Hemodynamics. 2. Right atrial pressure, 16 mmHg. 3. RV 69/16. 4. PA 70/27 (mean 44). 5. Pulmonary capillary wedge pressure, mean 30 mmHg. 6. Systemic noninvasive blood pressure 115/64 (mean 77). 7. Eliud cardiac output 7.5 L/minutes, Eliud cardiac index 3.2 L/minutes per meter squared. Oxygen saturation; PA sat 52%, AO sat 86%. Electronically Signed by: Eugenio Red M.D. 05/04/2022 05:00 P Eugenio Red M.D. Date Dict: 04/29/2022/04:52 P/Eugenio Red M.D. Date Trans: 04/30/2022 10:29 A/surekha [id number] cc: Li Cintron M.D. Heart Failure/ Transplant Mailstop [address] [place] [address] Normal The [facility] MAGNESIUM BLOODon 04-30-2022 Magnesium [Mass/Vol] 2.3 mg/dL Normal 1.9-2.7 The [facility] Comment on above: Order Comment: No: D o not add to previous draw Performed By: #### 4 0060, 92626, 45595, 89138 ####[facility] [place] [address], [facility] PHOSPHORUS BLOODon Phosphate [Mass/Vol] 4.1 mg/dL Normal 2.5-5.0 The [facility] Comment on above: Performed By: #### 4 5506, 46604, 28568, 19602 ####[facility] [place] [address], [place] URIC ACID BLOODon 04-30-2022 Urate [Mass/Vol] 13.5 mg/dL High 4.4-7.6 The [facility] Comment on above: Performed By: #### 4 5506, 02240, 11468, 99230 ####[facility] [place] [address], [place] BASIC METABOLIC PANELon 04-09 Calcium [Mass/Vol] 8.4 mg/dL Low 8.6-10.3 The [facility] Comment on above: Order Comment: No: D o not add to previous draw Performed By: #### 3 8533 #### [facility] [address] [place] [address], [place] Chloride [Moles/Vol] 100 mmol/L Normal 98-107 The [facility] Comment on above: Order Comment: No: D o not add to previous draw Performed By: #### 3 0313 #### [facility] [address] [place] [address], [place] CO2 [Moles/Vol] 30 mmol/L Normal 21-31 The [facility] Comment on above: Order Comment: No: D o not add to previous draw Performed By: #### 3 0313 #### [facility] [address] [place] [address], [place] Creatinine [Mass/Vol] 2.09 mg/dL High 0.70-1.30 The [facility] Comment on above: Order Comment: No: D o not add to previous draw Performed By: #### 3 9483 #### [facility] [address] [place] [address], [place] EGFR 33 ml/min/1.73sq m Abnormal >60 The [facility] Comment on above: Order Comment: No: D o not add to previous draw Result Comment: The [facility]'s estimated glomerular filtration rate (eGFR) will no longer include consideration of race in its calculation. The National Kidney Foundation's eGFR Task Force developed new recommendations for the estimation of the glomerular filtration rate in the [place] They recommend immediate implementation of the new equation refit without the race variable in all laboratories because the calculation does not include race. In addition to not including race in the calculation and reporting, it included diversity in its development, and has acceptable performance characteristics and potential consequences that do not disproportionately affect any one group of individuals. Performed By: #### 3 0313 #### [facility] [address] [place] [address], [facility] Glucose [Mass/Vol] 96 mg/dL Normal 70-100 The [facility] Comment on above: Order Comment: No: D o not add to previous draw Performed By: #### 3 0313 #### [facility] [address] [place] [address], [facility] Potassium [Moles/Vol] 4.0 mmol/L Normal 3.5-5.1 The [facility] Comment on above: Order Comment: No: D o not add to previous draw Performed By: #### 3 0313 #### [facility] [address] [place] [address], [place] Sodium [Moles/Vol] 138 mmol/L Normal 136-145 The [facility] Comment on above: Order Comment: No: D o not add to previous draw Performed By: #### 3 0313 #### [facility] [address] [place] [address], [place] Urea nitrogen [Mass/Vol] 48 mg/dL High 7-25 The [facility] Comment on above: Order Comment: No: D o not add to previous draw Performed By: #### 3 0313 #### [facility] [address] [place] [address], [place] CBC COMPLETE BLOOD COUNTon 0 8-2022 Erythrocyte distribution wid th (RBC) [Ratio] 20.6 % High 11.5-15.0 The [facility] Comment on above: Order Comment: No: D o not add to previous draw Performed By: #### 5 0608 ####[facility] Hematocrit (Bld) [Volume fraction] 31.0 % Low 39.0-50.0 The [facility] Comment on above: Order Comment: No: D o not add to previous draw Performed By: #### 5 0608 ####[address] Hemoglobin (Bld) [Mass/Vol] 8.9 g/dL Low 13.0-17. 0 The [facility] Comment on above: Order Comment: No: D o not add to previous draw Performed By: #### 5 0608 ####[address] MCH (RBC) [Entitic mass] 23.1 pg Low 27.0-33.0 The [facility] Comment on above: Order Comment: No: D o not add to previous draw Performed By: #### 5 0608 ####[address] MCHC (RBC) [Mass/Vol] 28.7 g/dL Low 32.0-35.0 The [facility] Comment on above: Order Comment: No: D o not add to previous draw Performed By: #### 5 0608 ####[place] [address], [facility] [facility] MCV (RBC) [Entitic vol] 80.5 fL Low 82.0-98.0 T win [facility] Comment on above: Order Comment: No: D o not add to previous draw Performed By: #### 5 0608 ####[address] [place] [address], [facility] Nucleated RBC/100 WBC (Bld) [Ratio] 0 % Normal 0-0 The [facility] Comment on above: Order Comment: No: D o not add to previous draw Performed By: #### 5 0608 ####[facility] [place] [address], [facility] PLAT CNT 145 10*3/uL Low 150-400 The [facility] Comment on above: Order Comment: No: D o not add to previous draw Performed By: #### 5 0608 ####[facility] [facility] [place] [address], [facility] RBC (Bld) [#/Vol] 3.85 10*6/uL Low 4.20-5.70 The [facility] [place] Comment on above: Order Comment: No: D o not add to previous draw Performed By: #### 5 0608 ####[facility] [facility] [place] [address], [facility] WBC (Bld) [#/Vol] 5.00 10*3/uL Normal 4.00-10.60 The [facility] [place] Comment on above: Order Comment: No: D o not add to previous draw Performed By: #### 5 0608 ####[facility] [facility] [place] [address], [facility] COOXIMETRYon 04-29-2022 COHB 3 % Normal The [facility] Comment on above: Performed By: #### 5 0103 #### [facility] [address] [place] [address], [facility] METHB 1 % Normal The [facility] Comment on above: Performed By: #### 5 0103 #### [facility] [address] [place] [address], [facility] Oxygen saturation in Blood 74.0 % Normal 65.0-75.0 The [facility] Comment on above: Performed By: #### 5 0103 #### [facility] [address] [place] [address], [facility] THB 8.4 g/dL Normal [facility] Comment on above: Performed By: #### 5 0103 #### [facility] [address] [place] [address], [facility] MAGNESIUM BLOODon 04-29-2022 Magnesium [Mass/Vol] 2.3 mg/dL Normal 1.9-2.7 The [facility] Comment on above: Order Comment: No: D o not add to previous draw Performed By: #### 3 0313 #### [facility] [address] [place] [address], [facility] BASIC METABOLIC PANELon 04-09 Calcium [Mass/Vol] 8.3 mg/dL Low 8.6-10.3 [facility] Comment on above: Order Comment: No: D o not add to previous draw Performed By: #### 0 0071, 60324, 35470 ####[facility] [place] [address], [facility] Chloride [Moles/Vol] 100 mmol/L Normal 98-107 The [facility] Comment on above: Order Comment: No: D o not add to previous draw Performed By: #### 0 0071, 10154, 33642 ####[facility] [place] [address], [place] CO2 [Moles/Vol] 29 mmol/L Normal 21-31 The [facility] Comment on above: Order Comment: No: D o not add to previous draw Performed By: #### 0 0071, 53803, 88387 ####[facility] [place] [address], [place] Creatinine [Mass/Vol] 2.51 mg/dL High 0.70-1.30 The [facility] Comment on above: Order Comment: No: D o not add to previous draw Performed By: #### 0 0071, 06075, 20020 ####[facility] [place] [address], [facility] EGFR 27 ml/min/1.73sq m Abnormal >60 The [facility] Comment on above: Order Comment: No: D o not add to previous draw Result Comment: The [facility]'s estimated glomerular filtration rate (eGFR) will no longer include consideration of race in its calculation. The National Kid[employer] Foundation's eGFR Task Force developed new recommendations for the estimation of the glomerular filtration rate in the [place] They recommend immediate implementation of the new equation refit without the race variable in all laboratories because the calculation does not include race. In addition to not including race in the calculation and reporting, it included diversity in its development, and has acceptable performance characteristics and potential consequences that do not disproportionately affect any one group of individuals. Performed By: #### 0 0071, , 77260 ####[facility] [facility] [place] [address], [facility] Glucose [Mass/Vol] 98 mg/dL Normal 70-100 The [facility] Comment on above: Order Comment: No: D o not add to previous draw Performed By: #### 0 70, , 48572 ####[facility] [facility] [place] [address], [facility] Potassium [Moles/Vol] 3.9 mmol/L Normal 3.5-5.1 The [facility] Comment on above: Order Comment: No: D o not add to previous draw Performed By: #### 0 0071, 04423, 15954 ####[facility] [facility] [place] [address], [facility] Sodium [Moles/Vol] 138 mmol/L Normal 136-145 The [facility] Comment on above: Order Comment: No: D o not add to previous draw Performed By: #### 0 0071, 23560, 60333 ####[facility] Urea nitrogen [Mass/Vol] 55 mg/dL High 7-25 The [facility] Comment on above: Order Comment: No: D o not add to previous draw Performed By: #### 0 0071, 40642, 61432 ####[facility] CBC COMPLETE BLOOD COUNTon 0 04-28-2022 Erythrocyte distribution wid th (RBC) [Ratio] 20.2 % High 11.5-15.0 The [facility] Comment on above: Order Comment: No: D o not add to previous draw Performed By: #### 5 0608 ####[place] [id number] [address] Hematocrit (Bld) [Volume fraction] 28.9 % Low 39.0-50.0 The [facility] Comment on above: Order Comment: No: D o not add to previous draw Performed By: #### 5 0608 ####[place] [id number] [address] Hemoglobin (Bld) [Mass/Vol] 8.7 g/dL Low 13.0-17. 0 The [facility] Comment on above: Order Comment: No: D o not add to previous draw Performed By: #### 5 0608 ####[facility] MCH (RBC) [Entitic mass] 24.0 pg Low 27.0-33.0 The [facility] Comment on above: Order Comment: No: D o not add to previous draw Performed By: #### 5 0608 ####[facility] MCHC (RBC) [Mass/Vol] 30.1 g/dL Low 32.0-35.0 The [facility] Comment on above: Order Comment: No: D o not add to previous draw Performed By: #### 5 0608 ####[facility] [place] [address], [facility] MCV (RBC) [Entitic vol] 79.6 fL Low 82.0-98.0 T he [facility] Comment on above: Order Comment: No: D o not add to previous draw Performed By: #### 5 0608 ####[facility] [facility] [place] [address], [facility] Nucleated RBC/100 WBC (Bld) [Ratio] 0 % Normal 0-0 The [facility] Comment on above: Order Comment: No: D o not add to previous draw Performed By: #### 5 0608 ####[facility] [facility] [place] [address], [facility] PLAT CNT 162 10*3/uL Normal 150-400 The [facility] Comment on above: Order Comment: No: D o not add to previous draw Performed By: #### 5 0608 ####[place] [id number] [facility] [place] [address], [facility] RBC (Bld) [#/Vol] 3.63 10*6/uL Low 4.20-5.70 The [facility] [place] Comment on above: Order Comment: No: D o not add to previous draw Performed By: #### 5 0608 ####[facility] [facility] [place] [address], [facility] WBC (Bld) [#/Vol] 6.21 10*3/uL Normal 4.00-10.60 The [facility] [place] Comment on above: Order Comment: No: D o not add to previous draw Performed By: #### 5 0608 ####[facility] [place] [address].[place] [address], [facility] LIPID PROFILEon 04-28-2022 Cholesterol [Mass/Vol] 92 mg/dL Low 120-200 Th e [facility] Comment on above: Order Comment: Yes: Add to Previous draw if able Result Comment: CHOL ESTEROL REFERENCE RANGE: 20 YEARS AND OLDER CARDIOVASCULAR RISK Less than 200 mg/dl Low Risk 200 to 239 mg/dl Borderline Risk 240 mg/dl and greater High Risk Performed By: #### 0 0071, 99177, 61542 ####[facility] [place] [address], [facility] Cholesterol in HDL [Mass/Vol] 37 mg/dL Normal 23-92 [facility] Comment on above: Order Comment: Yes: Add to Previous draw if able Result Comment: Slig ht variation in normal range could be due to gender and/or age. HDL CHOLESTEROL REFERENCE RANGE: 20 years and older Cardiovascular Risk > or =60 mg/dL Desirable 40 TO 59 mg/dL Low Risk <40 mg/dL High Risk Performed By: #### 0 0071, 62749, 35401 ####[facility] [facility] [place] [address], [facility] Cholesterol in LDL [Mass/Vol] 47 mg/dL Normal 0-130 [facility] Comment on above: Order Comment: Yes: Add to Previous draw if able Result Comment: LDL IS A CALCULATION LDL IS ONLY VALID IF THE TRIG IS LESS THAN 400. Performed By: #### 0 0071, , 80469 ####[facility] [place] [address], [facility] Cholesterol.total/Cholestero l in HDL [Mass ratio] 2.5 {ratio} Normal .0-4.5 The [facility] Comment on above: Order Comment: Yes: Add to Previous draw if able Performed By: #### 0 0071, 50176, 28766 ####[facility] [place] [address], [facility] NON-HDL CHOLESTEROL 55 mg/dL Normal [facility] Comment on above: Order Comment: Yes: Add to Previous draw if able Performed By: #### 0 0071, 68390, 88988 ####[facility] Triglyceride [Mass/Vol] 40 mg/dL Normal 40-149 T he [facility] Comment on above: Order Comment: Yes: Add to Previous draw if able Result Comment: TRIG LYCERIDE REFERENCE RANGE: 20 YEARS AND OLDER CARDIOVASCULAR RISK LESS THAN 150 mg/dl LOW RISK 150 TO 199 mg/dl BORDERLINE RISK 200 mg/dl AND GREATER HIGH RISK Performed By: #### 0 0071, 79446, 17156 ####[facility] [place] [address], [facility] VLDL CHOL 8 mg/dL Normal 0-40 [facility] Comment on above: Order Comment: Yes: Add to Previous draw if able Performed By: #### 0 0071, 40245, 15368 ####[facility] [place] [address], [facility] MAGNESIUM BLOODon 04-28-2022 Magnesium [Mass/Vol] 2.4 mg/dL Normal 1.9-2.7 [facility] Comment on above: Order Comment: No: D o not add to previous draw Performed By: #### 0 0071, 64045, 33940 ####[facility] [facility] BASIC METABOLIC PANELon 04-09 Calcium [Mass/Vol] 8.4 mg/dL Low 8.6-10.3 [facility] Comment on above: Order Comment: No: D o not add to previous draw Performed By: #### 7 0207 #### [facility] [address] [place] [id number], [place] Chloride [Moles/Vol] 100 mmol/L Normal 98-107 The [facility] Comment on above: Order Comment: No: D o not add to previous draw Performed By: #### 7 0207 #### [facility] [address] [place] [address], [place] CO2 [Moles/Vol] 27 mmol/L Normal 21-31 The [facility] Comment on above: Order Comment: No: D o not add to previous draw Performed By: #### 7 0207 #### [facility] [address] [place] [address], [facility] Creatinine [Mass/Vol] 2.46 mg/dL High 0.70-1.30 The [facility] Comment on above: Order Comment: No: D o not add to previous draw Performed By: #### 7 0207 #### [facility] [address] [place] [address], [facility] EGFR 27 ml/min/1.73sq m Abnormal >60 The [facility] Comment on above: Order Comment: No: D o not add to previous draw Result Comment: The [facility]'s estimated glomerular filtration rate (eGFR) will no longer include consideration of race in its calculation. The National Kid[employer] Foundation's eGFR Task Force developed new recommendations for the estimation of the glomerular filtration rate in the [place] They recommend immediate implementation of the new equation refit without the race variable in all laboratories because the calculation does not include race. In addition to not including race in the calculation and reporting, it included diversity in its development, and has acceptable performance characteristics and potential consequences that do not disproportionately affect any one group of individuals. Performed By: #### 7 0207 #### [facility] [address] [place] [address], [facility] Glucose [Mass/Vol] 96 mg/dL Normal 70-100 The [facility] Comment on above: Order Comment: No: D o not add to previous draw Performed By: #### 7 0207 #### [facility] [address] [place] [address], [facility] Potassium [Moles/Vol] 3.8 mmol/L Normal 3.5-5.1 The [facility] Comment on above: Order Comment: No: D o not add to previous draw Performed By: #### 7 0207 #### [facility] [address] [place] [address], [facility] Sodium [Moles/Vol] 136 mmol/L Normal 136-145 The [facility] Comment on above: Order Comment: No: D o not add to previous draw Performed By: #### 7 0207 #### [facility] [address] [place] [address], [place] Urea nitrogen [Mass/Vol] 57 mg/dL High 7-25 The [facility] Comment on above: Order Comment: No: D o not add to previous draw Performed By: #### 7 0207 #### [facility] [address] [place] [address], [facility] BASIC METABOLIC PANELon 04-08 Calcium [Mass/Vol] 8.7 mg/dL Normal 8.6-10.3 The [facility] Comment on above: Order Comment: No: D o not add to previous draw Performed By: #### 3 0313 #### [facility] [address] [place] [address], [place] Chloride [Moles/Vol] 100 mmol/L Normal 98-107 The [facility] Comment on above: Order Comment: No: D o not add to previous draw Performed By: #### 3 0313 #### [facility] [address] [place] [address], [place] CO2 [Moles/Vol] 26 mmol/L Normal 21-31 The [facility] Comment on above: Order Comment: No: D o not add to previous draw Performed By: #### 3 0313 #### [facility] [address] [place] [address], [place] Creatinine [Mass/Vol] 2.63 mg/dL High 0.70-1.30 The [facility] Comment on above: Order Comment: No: D o not add to previous draw Performed By: #### 3 0313 #### [facility] [address] [place] [address], [place] EGFR 25 ml/min/1.73sq m Abnormal >60 The [facility] Comment on above: Order Comment: No: D o not add to previous draw Result Comment: The [facility]'s estimated glomerular filtration rate (eGFR) will no longer include consideration of race in its calculation. The National Kid[employer] Foundation's eGFR Task Force developed new recommendations for the estimation of the glomerular filtration rate in the [place] They recommend immediate implementation of the new equation refit without the race variable in all laboratories because the calculation does not include race. In addition to not including race in the calculation and reporting, it included diversity in its development, and has acceptable performance characteristics and potential consequences that do not disproportionately affect any one group of individuals. Performed By: #### 3 0313 #### [facility] [address] [place] [address], [facility] Glucose [Mass/Vol] 101 mg/dL High 70-100 The [facility] Comment on above: Order Comment: No: D o not add to previous draw Performed By: #### 3 0313 #### [facility] [address] [place] [address], [facility] Potassium [Moles/Vol] 4.3 mmol/L Normal 3.5-5.1 The [facility] Comment on above: Order Comment: No: D o not add to previous draw Performed By: #### 3 0313 #### [facility] [address] [place] [address], [place] Sodium [Moles/Vol] 136 mmol/L Normal 136-145 The [facility] Comment on above: Order Comment: No: D o not add to previous draw Performed By: #### 3 0313 #### [facility] [address] [place] [address], [facility] Urea nitrogen [Mass/Vol] 57 mg/dL High 7-25 The [facility] Comment on above: Order Comment: No: D o not add to previous draw Performed By: #### 3 0313 #### [facility] [address] [place] [address], [place] CBC W/DIFFon 04-26-2022 ABS IMM GRANS 0.0 10*3/uL Normal 0.0-0.2 The [facility] Comment on above: Order Comment: No: D o not add to previous draw Performed By: #### 5 0103 #### [facility] [address] [place] [address], [facility] ABS NEUTROPHILS 5.2 10*3/uL Normal 1.6-7.6 The [facility] Comment on above: Order Comment: No: D o not add to previous draw Performed By: #### 5 0103 #### [facility] [address] [place] [id number], [facility] Basophils (Bld) [#/Vol] 0.0 10*3/uL Normal 0.0-0.2 The [facility] Comment on above: Order Comment: No: D o not add to previous draw Performed By: #### 5 0103 #### [facility] [address] [place] [address], [facility] Basophils/100 WBC (Bld) 0.6 % Normal 0.0-1.0 T [facility] Comment on above: Order Comment: No: D o not add to previous draw Performed By: #### 5 0103 #### [facility] [address] [place] [address], [facility] Eosinophils (Bld) [#/Vol] 0.2 10*3/uL Normal 0.0-0.5 The [facility] Comment on above: Order Comment: No: D o not add to previous draw Performed By: #### 5 0103 #### [facility] [address] [place] [address], [facility] Eosinophils/100 WBC (Bld) 3.4 % Normal 0.0-6.0 The [facility] Comment on above: Order Comment: No: D o not add to previous draw Performed By: #### 5 0103 #### [facility] [address] Erythrocyte distribution wid th (RBC) [Ratio] 19.9 % High 11.5-15.0 The [facility] Comment on above: Order Comment: No: D o not add to previous draw Performed By: #### 5 0103 #### [facility] [address] [facility] [place] [address], [facility] Hematocrit (Bld) [Volume fraction] 30.2 % Low 39.0-50.0 The [facility] Comment on above: Order Comment: No: D o not add to previous draw Performed By: #### 5 0103 #### [facility] [address] Hemoglobin (Bld) [Mass/Vol] 9.0 g/dL Low 13.0-17. 0 The [facility] Comment on above: Order Comment: No: D o not add to previous draw Performed By: #### 5 0103 #### [facility] [address] [place] [address], [facility] IMMATURE GRANS 0.2 % Normal 0.0-1.0 The [facility] Comment on above: Order Comment: No: D o not add to previous draw Performed By: #### 5 0103 #### [facility] [address] [place] [address], [facility] Lymphocytes (Bld) [#/Vol] 0.4 10*3/uL Low 1.2-4.0 The [facility] Comment on above: Order Comment: No: D o not add to previous draw Performed By: #### 5 0103 #### [facility] [address] [place] [address], [facility] Lymphocytes/100 WBC (Bld) 6.6 % Low 20.0-45.0 The [facility] Comment on above: Order Comment: No: D o not add to previous draw Performed By: #### 5 0103 #### [facility] [address] [facility] [place] [address], [facility] MCH (RBC) [Entitic mass] 23.4 pg Low 27.0-33.0 The [facility] Comment on above: Order Comment: No: D o not add to previous draw Performed By: #### 5 0103 #### [facility] [address] [place] [id number], [facility] MCHC (RBC) [Mass/Vol] 29.8 g/dL Low 32.0-35.0 The [facility] Comment on above: Order Comment: No: D o not add to previous draw Performed By: #### 5 0103 #### [facility] [address] [place] [id number], [facility] MCV (RBC) [Entitic vol] 78.4 fL Low 82.0-98.0 T he [facility] Comment on above: Order Comment: No: D o not add to previous draw Performed By: #### 5 0103 #### [facility] [address] [place] [id number], [facility] Monocytes (Bld) [#/Vol] 0.7 10*3/uL Normal 0.1-1.0 The [facility] Comment on above: Order Comment: No: D o not add to previous draw Performed By: #### 5 0103 #### [facility] [address] [place] [id number], [facility] MONOS 10.3 % Normal 5.0-12.0 The [facility] Comment on above: Order Comment: No: D o not add to previous draw Performed By: #### 5 0103 #### [facility] [address] [place] [id number], [facility] Neutrophils/100 WBC (Bld) 78.9 % High 40.0-72.0 The [facility] Comment on above: Order Comment: No: D o not add to previous draw Performed By: #### 5 0103 #### [facility] [address] [place] [id number] [place] [place] [address] Nucleated RBC/100 WBC (Bld) [Ratio] 0 % Normal 0-0 The [facility] Comment on above: Order Comment: No: D o not add to previous draw Performed By: #### 5 0103 #### [facility] [address] [place] [address], [facility] PLAT CNT 196 10*3/uL Normal 150-400 The [facility] Comment on above: Order Comment: No: D o not add to previous draw Performed By: #### 5 0103 #### [facility] [address] [place] [address], [facility] RBC (Bld) [#/Vol] 3.85 10*6/uL Low 4.20-5.70 The [facility] [place] Comment on above: Order Comment: No: D o not add to previous draw Performed By: #### 5 0103 #### [facility] [address] [facility] [place] [address], [facility] WBC (Bld) [#/Vol] 6.52 10*3/uL Normal 4.00-10.60 The [facility] [place] Comment on above: Order Comment: No: D o not add to previous draw Performed By: #### 5 0103 #### [facility] [address] HEMOGLOBIN A1Con 04-26-2022 Glucose [Moles/Vol] 111 mmol/L Normal The [facility] [place] Comment on above: Order Comment: Check Pacemaker/AICD Lead Position, Chest X-ray PA \EANDE\ LAT in Dept ;DO NOT lift affected arm above shoulder. S/P pacemaker/ICD implant. Verify lead placement Performed By: #### 3 1791 ####[facility] HbA1c (Bld) [Mass fraction] 5.5 % Normal 4.0-6.0 The [facility] Comment on above: Order Comment: Check Pacemaker/AICD Lead Position, Chest X-ray PA \EANDE\ LAT in Dept ;DO NOT lift affected arm above shoulder. S/P pacemaker/ICD implant. Verify lead placement Performed By: #### 3 1791 ####[facility] [place] [address], [facility] MAGNESIUM BLOODon 04-26-2022 Magnesium [Mass/Vol] 2.6 mg/dL Normal 1.9-2.7 The [facility] Comment on above: Order Comment: No: D o not add to previous draw Performed By: #### 3 0313 #### [facility] [address] [place] [address], [facility] APTTon 04-25-2022 aPTT Coag (Bld) [Time] 49.8 s High 25.0-35.0 Th e [facility] Comment on above: Order Comment: No: D o not add to previous draw Result Comment: ALL RESULTS MUST BE INTERPRETED WITH RESPECT TO BLOOD DRAWING ARTIFACT OR DILUTION ERROR OF ANTICOAGULANT AT THE TIME OF SAMPLING. THE APTT SHOULD NOT BE USED TO MONITOR UNFRACTIONATED HEPARIN THERAPY, THIS LABORATORY NO LONGER HAS AN ESTABLISHED THERAPEUTIC RANGE BASED ON THE APTT. IT IS RECOMMENDED THAT THE U[facility] - HEPARIN ASSAY (ANTI-XA ACTIVITY) BE USED FOR THIS PURPOSE. Performed By: #### 5 0103 #### [facility] [address] [place] [address], [facility] BASIC METABOLIC PANELon 04-08 Calcium [Mass/Vol] 8.8 mg/dL Normal 8.6-10.3 The [facility] Comment on above: Order Comment: No: D o not add to previous draw Performed By: #### 3 2044 #### [facility] [address] [place] [address], [facility] Chloride [Moles/Vol] 100 mmol/L Normal 98-107 The [facility] Comment on above: Order Comment: No: D o not add to previous draw Performed By: #### 3 2044 #### [facility] [address] [place] [address], [facility] CO2 [Moles/Vol] 27 mmol/L Normal 21-31 The [facility] Comment on above: Order Comment: No: D o not add to previous draw Performed By: #### 3 2044 #### [facility] [address] [place] [address], [facility] Creatinine [Mass/Vol] 2.82 mg/dL High 0.70-1.30 The [facility] Comment on above: Order Comment: No: D o not add to previous draw Performed By: #### 3 2044 #### [facility] [address] [place] [address], [facility] EGFR 23 ml/min/1.73sq m Abnormal >60 The [facility] Comment on above: Order Comment: No: D o not add to previous draw Result Comment: The [facility]'s estimated glomerular filtration rate (eGFR) will no longer include consideration of race in its calculation. The National Kidney Foundation's eGFR Task Force developed new recommendations for the estimation of the glomerular filtration rate in the [place] They recommend immediate implementation of the new equation refit without the race variable in all laboratories because the calculation does not include race. In addition to not including race in the calculation and reporting, it included diversity in its development, and has acceptable performance characteristics and potential consequences that do not disproportionately affect any one group of individuals. Performed By: #### 3 2044 #### [facility] [address] [place] [address], [facility] Glucose [Mass/Vol] 114 mg/dL High 70-100 The [facility] Comment on above: Order Comment: No: D o not add to previous draw Performed By: #### 3 2044 #### [facility] [address] [place] [address], [facility] Potassium [Moles/Vol] 4.4 mmol/L Normal 3.5-5.1 The [facility] Comment on above: Order Comment: No: D o not add to previous draw Performed By: #### 3 2044 #### [facility] [address] Sodium [Moles/Vol] 137 mmol/L Normal 136-145 [facility] Comment on above: Order Comment: No: D o not add to previous draw Performed By: #### 3 2044 #### [facility] [address] [place] [address], [facility] Urea nitrogen [Mass/Vol] 61 mg/dL High 7-25 The [facility] Comment on above: Order Comment: No: D o not add to previous draw Performed By: #### 3 2044 #### [facility] [address] BNP (B-TYPE NATRIURETIC PEPT ANH)on 04-25-2022 Natriuretic peptide B (Bld) [Mass/Vol] 1813 pg/mL High 0-100 The [facility] Comment on above: Order Comment: Yes: Add to Previous draw if able Result Comment: Give n the appropriate clinical setting a BNP result of >100 pg/mL indicates congestive heart failure. Performed By: #### 3 2044 #### [facility] [address] C REACTIVE PROTEINon 022 CRP [Mass/Vol] 17.2 mg/L High 0.0-7.0 The [facility] Comment on above: Order Comment: No: D o not add to previous draw Performed By: #### 5 3 #### [facility] [address] [facility] [place] [address], [facility] CBC W/DIFFon 04-25-2022 ABS IMM GRANS 0.0 10*3/uL Normal 0.0-0.2 The [facility] Comment on above: Performed By: #### 5 102 #### [facility] [address] [facility] [place] [address], [facility] ABS NEUTROPHILS 5.4 10*3/uL Normal 1.6-7.6 The [facility] Comment on above: Performed By: #### 5 0103 #### [facility] [address] [place] [address], [facility] Basophils (Bld) [#/Vol] 0.0 10*3/uL Normal 0.0-0.2 The [facility] Comment on above: Performed By: #### 5 0103 #### [facility] [address] [place] [address], [facility] Basophils/100 WBC (Bld) 0.6 % Normal 0.0-1.0 T [facility] Comment on above: Performed By: #### 5 0103 #### [facility] [address] [place] [address], [facility] Eosinophils (Bld) [#/Vol] 0.2 10*3/uL Normal 0.0-0.5 The [facility] Comment on above: Performed By: #### 5 0103 #### [facility] [address] [place] [address], [facility] Eosinophils/100 WBC (Bld) 2.5 % Normal 0.0-6.0 The [facility] Comment on above: Performed By: #### 5 0103 #### [facility] [address] [place] [address], [facility] Erythrocyte distribution wid th (RBC) [Ratio] 19.9 % High 11.5-15.0 The [facility] Comment on above: Performed By: #### 5 0103 #### [facility] [address] [place] [address], [facility] Hematocrit (Bld) [Volume fraction] 31.6 % Low 39.0-50.0 The [facility] Comment on above: Performed By: #### 5 3 #### [facility] [address] [place] [address], [facility] Hemoglobin (Bld) [Mass/Vol] 9.3 g/dL Low 13.0-17. 0 The [facility] Comment on above: Performed By: #### 5 0103 #### [facility] [address] [place] [address], [facility] IMMATURE GRANS 0.2 % Normal 0.0-1.0 [facility] Comment on above: Performed By: #### 5 0103 #### [facility] [address] [place] [address], [facility] Lymphocytes (Bld) [#/Vol] 0.3 10*3/uL Low 1.2-4.0 The [facility] Comment on above: Performed By: #### 5 0103 #### [facility] [address] Lymphocytes/100 WBC (Bld) 4.4 % Low 20.0-45.0 The [facility] Comment on above: Performed By: #### 5 0103 #### [facility] [address] [place] [address], [facility] MCH (RBC) [Entitic mass] 23.1 pg Low 27.0-33.0 The [facility] Comment on above: Performed By: #### 5 0103 #### [facility] [address] [place] [address], [facility] MCHC (RBC) [Mass/Vol] 29.4 g/dL Low 32.0-35.0 The [facility] Comment on above: Performed By: #### 5 0103 #### [facility] [address] [place] [address], [facility] MCV (RBC) [Entitic vol] 78.6 fL Low 82.0-98.0 T [facility] Comment on above: Performed By: #### 5 0103 #### [facility] [address] [place] [address], [facility] Monocytes (Bld) [#/Vol] 0.6 10*3/uL Normal 0.1-1.0 The [facility] Comment on above: Performed By: #### 5 0103 #### [facility] [address] [place] [address], [facility] MONOS 8.9 % Normal 5.0-12.0 [facility] Comment on above: Performed By: #### 5 0103 #### [facility] [address] [place] [address], [facility] Neutrophils/100 WBC (Bld) 83.4 % High 40.0-72.0 The [facility] Comment on above: Performed By: #### 5 0103 #### [facility] [address] [place] [address], [facility] Nucleated RBC/100 WBC (Bld) [Ratio] 0 % Normal 0-0 The [facility] Comment on above: Performed By: #### 5 0103 #### [facility] [address] [facility] [place] [address], [facility] PLAT CNT 191 10*3/uL Normal 150-400 The [facility] Comment on above: Performed By: #### 5 0103 #### [facility] [address] [place] [address], [facility] RBC (Bld) [#/Vol] 4.02 10*6/uL Low 4.20-5.70 The [facility] [place] Comment on above: Performed By: #### 5 0103 #### [facility] [address] [place] [address], [facility] WBC (Bld) [#/Vol] 6.43 10*3/uL Normal 4.00-10.60 The [facility] [place] Comment on above: Performed By: #### 5 0103 #### [facility] [address] [place] [address], [facility] COMPLEMENT 3on 04-25-2022 COMPLEMENT 3 104 mg/dL Normal 79-152 The [facility] Comment on above: Order Comment: No: D o not add to previous draw Performed By: #### 5 0103 #### [facility] [address] [place] [address], [facility] COMPLEMENT 4on 04-25-2022 COMPLEMENT 4 23 mg/dL Normal 16-38 The [facility] Comment on above: Order Comment: No: D o not add to previous draw Performed By: #### 5 0103 #### [facility] [address] [place] [address], [facility] CPKon 04-25-2022 CK [Catalytic activity/Vol] 23 U/L Low 30-223 [facility] Comment on above: Order Comment: No: D o not add to previous draw Performed By: #### 7 0207 #### [facility] [address] [place] [address], [facility] CREATININE URINE RANDOMon Creatinine (U) [Mass/Vol] 104.0 mg/dL Normal [facility] Comment on above: Order Comment: Check Pacemaker/AICD Lead Position, Chest X-ray PA \EANDE\ LAT in Dept ;DO NOT lift affected arm above shoulder. S/P pacemaker/ICD implant. Verify lead placement Result Comment: Ther e are no established reference values for random urine specimens Performed By: #### 4 1919, 69594 ####[facility] [facility] [place] [address], [facility] FERRITINon 04-25-2022 Ferritin [Mass/Vol] 50 ng/mL Normal 24-336 The [facility] [place] Comment on above: Order Comment: No: D o not add to previous draw Performed By: #### 7 0207 #### [facility] [address] [place] [id number], [facility] HEPATITIS B CORE ANTIBODYon 04-25-2022 HEP B CORE AB Non-Reactive Normal NONREACTIVE The [facility] Comment on above: Order Comment: No: D o not add to previous draw Performed By: #### 7 0207 #### [facility] [address] [place] [address], [facility] HEPATITIS C ANTIBODYon 04-25 ANTI-HCV Non-Reactive Normal NONREACTIVE The [facility] Comment on above: Order Comment: No: D o not add to previous draw Performed By: #### 7 0207 #### [facility] [address] [place] [address], [facility] IMMUNOFIXATION BLOODon 04-25 IgA [Mass/Vol] 733 mg/dL High 60-413 The [facility] Comment on above: Performed By: #### 5 0103 #### [facility] [address] [place] [address], [facility] IgG [Mass/Vol] 1330 mg/dL Normal 591-1540 [facility] Comment on above: Performed By: #### 5 0103 #### [facility] [address] [facility] [place] [address], [facility] IgM [Mass/Vol] 365 mg/dL High 54-285 The [facility] Comment on above: Performed By: #### 5 0103 #### [facility] [address] [facility] 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 SEE SEPARATE REPORT Performed By: #### 5 0103 #### [facility] [address] [place] [address], [facility] KAPPA LIGHT CHN See [place] report. Normal 0.33-1.94 [facility] Comment on above: Performed By: #### 5 0103 #### [facility] [address] [place] [address], [facility] KAPPA/LAMDBA RATIO See [place] report. Normal 0.26-1.[address] [facility] Comment on above: Result Comment: For patients with renal impairment, use a kappa/lambda ratio of 0.37-3.10 Performed By: #### 5 102 #### [facility] [address] [place] [address], [facility] LAMBDA LIGHT CHN See [place] report. Normal 0.57-2.63 The [facility] Comment on above: Performed By: #### 5 102 #### [facility] [address] [place] [address], [place] LIVER BATTERYon 04-25-2022 Albumin [Mass/Vol] 3.3 g/dL Low 3.5-5.7 [facility] Comment on above: Order Comment: No: D o not add to previous draw Performed By: #### 3 2044 #### [facility] [address] [place] [address], [facility] ALKALINE PHOSPH 78 IU/L Normal 34-104 The [facility] Comment on above: Order Comment: No: D o not add to previous draw Performed By: #### 3 2044 #### [facility] [address] [place] [address], [place] ALT [Catalytic activity/Vol] 15 U/L Normal 7-52 The [facility] Comment on above: Order Comment: No: D o not add to previous draw Performed By: #### 3 2044 #### [facility] [address] [place] [address], [place] AST [Catalytic activity/Vol] 16 U/L Normal 13-39 The [facility] Comment on above: Order Comment: No: D o not add to previous draw Performed By: #### 3 2044 #### [facility] [address] [place] [address], [place] Bilirubin [Mass/Vol] 1.2 mg/dL High 0.3-1.0 The [facility] Comment on above: Order Comment: No: D o not add to previous draw Performed By: #### 3 2044 #### [facility] [address] [place] [address], [facility] Bilirubin.direct [Mass/Vol] 0.4 mg/dL High 0.0-0.2 The [facility] Comment on above: Order Comment: No: D o not add to previous draw Performed By: #### 3 2044 #### [facility] [address] [place] [address], [facility] Protein [Mass/Vol] 6.8 g/dL Normal 6.0-8.3 The [facility] Comment on above: Order Comment: No: D o not add to previous draw Performed By: #### 3 2044 #### [facility] [address] [place] [address], [facility] MAGNESIUM BLOODon 04-25-2022 Magnesium [Mass/Vol] 2.7 mg/dL Normal 1.9-2.7 The [facility] Comment on above: Order Comment: No: D o not add to previous draw Performed By: #### 3 2044 #### [facility] [address] [place] [address], [facility] PHOSPHORUS BLOODon Phosphate [Mass/Vol] 3.7 mg/dL Normal 2.5-5.0 The [facility] Comment on above: Order Comment: No: D o not add to previous draw Performed By: #### 7 0207 #### [facility] [address] [facility] [place] [address], [facility] POC SARS COV2 ANTIGEN NEGATI VEon 04-25-2022 POC SARS COV2 ANTIGEN NEG Negative Normal NEGATIVE The [facility] Comment on above: Result Comment: Nega tive results should be treated as presumptive and confirmation with a molecular assay, if necessary, for patient management, may be performed. Negative results do not rule out SARS-CoV-2 infection and not should be used as the sole basis for treatment or patient management decisions, including infection control decisions. Negative results should be considered in the context of a patient's recent exposures, history, and the presence of clinical signs and symptoms consistent with COVID-19. The [employer]arity COVID-19 Antigen Rapid Test Cassette is a rapid chromatographic immunoassay intended for the qualitative detection of the nucleocapsid protein antigen from SARS-CoV-2 in direct nasopharyngeal swab (DIRECTOR OF SOCIAL WORK) specimens from individuals who are suspected of COVID-19 by their healthcare provider within the first six days of symptom onset. Testing is limited to laboratories certified under the Clinical Laboratory Improvement Amendments of 1988 (CLIA), 42 U.S.C. ???263a, that meet the requirements to perform moderate complexity, high complexity, or waived tests. This test is authorized for use at the Point of Care (POC), i.e., in patient care settings operating under a CLIA Certificate of Waiver, Certificate of Compliance, or Certificate of Accreditation. Performed By: #### 3 2044 ####[facility] PROTEIN ELECT Marcos 04-25-2022 Protein [Mass/Vol] 6.9 g/dL Normal 6.0-8.3 The [facility] Comment on above: Order Comment: No: D o not add to previous draw Performed By: #### 7 0207 #### [facility] [address] [place] [address], [facility] Protein [Mass/Vol] 0.20 g/dL High 0.00-0.00 [facility] Comment on above: Order Comment: No: D o not add to previous draw Performed By: #### 7 0207 #### [facility] [address] [place] [address], [facility] PROTEIN ELECT Normal [facility] Comment on above: Order Comment: No: D o not add to previous draw Result Comment: The abnormal band in the gamma globulin region suggests monoclonal gammopathy. SEE SEPARATE REPORT Performed By: #### 7 0207 #### [facility] [address] [place] [address], [facility] PROTEIN ELECT URon PROTEIN ELECT No abnormal bands se en. SEE SEPARATE REPORT Normal The [facility] Comment on above: Order Comment: Check Pacemaker/AICD Lead Position, Chest X-ray PA \EANDE\ LAT in Dept ;DO NOT lift affected arm above shoulder. S/P pacemaker/ICD implant. Verify lead placement Performed By: #### 4 6710, [id number] ####[facility] [id number], [facility] U TOTAL PROTEIN 47.8 mg/dL Normal [facility] Comment on above: Order Comment: Check Pacemaker/AICD Lead Position, Chest X-ray PA \EANDE\ LAT in Dept ;DO NOT lift affected arm above shoulder. S/P pacemaker/ICD implant. Verify lead placement Result Comment: Ther e are no established reference values for random urine specimens Performed By: #### 4 4090, [id number] ####[facility]3000 [facility] [place] [address], [facility] PROTHROMBIN TIMEon 2 INR Coag (PPP) [Relative time] 1.71 {INR} High 0.91-1.16 The [facility] Comment on above: Order Comment: No: D o not add to previous draw Result Comment: ACCC P RECOMMENDED INR FOR WARFARIN THERAPY ------- CONDITION INR PROPHYLAXIS OF VENOUS THROMBOSIS 2-3 (HIGH-RISK SURGERY) TREATMENT OF VENOUS THROMBOSIS 2-3 TREATMENT OF PULMONARY EMBOLISM 2-3 PREVENTION OF SYSTEMIC EMBOLISM: 2-3 ACUTE MYOCARDIAL INFARCTION TISSUE HEART VALVES VALVULAR HEART DISEASE ATRIAL FIBRILLATION RECURRENT SYSTEMIC EMBOLISM MECHANICAL HEART VALVE 2.5-3.5 FROM: ORAL ANTICOAGULANTS. MECHANISM OF ACTION, CLINICAL EFFECTIVENESS, AND OPTIMAL THERAPEUTIC RANGE. CHEST 1995;108:231S-246S. Performed By: #### 5 0103 #### [facility] [address] [place] [address], [facility] PT Coag (PPP) [Time] 19.8 s High 12.3-14.8 The [facility] Comment on above: Order Comment: No: D o not add to previous draw Result Comment: ALL RESULTS MUST BE INTERPRETED WITH RESPECT TO BLOOD DRAWING ARTIFACT OR DILUTION ERROR OF ANTICOAGULANT AT THE TIME OF SAMPLING. Performed By: #### 5 0103 #### [facility] [address] [address], [facility] SEDIMENTATION RATEon 022 SED RATE 63 mm/hr High 0-10 [facility] Comment on above: Order Comment: No: D o not add to previous draw Performed By: #### 5 0608 #### [facility] [address] [facility]. [place], [place] [id number] [place] [address] SERUM FREE LIGHT CHAINS ILon 04-25-2022 FREE KAPPA LIGHT CHAINS 14.36 mg/dL High 0.37-1.94 The [facility] FREE KAPPA/LAMBDA RATIO 2.00 High 0.26-1.65 T he [facility] FREE LAMBDA LIGHT CHAINS 7.19 mg/dL High 0.57-2.63 The [facility] IL Normal The [facility] Comment on above: Result Comment: Test Performed by [employer] [address] [place] [address] - Released 05/02/2022 21:21 Result changed by IF on 05/02/2022 21:21. The previous value was Test Performed by [employer] [address] [place] [phone] TIBC- INCLUDES IRONon 2021 FE SATURATION 9 % Low 20-50 The [facility] Comment on above: Order Comment: No: D o not add to previous draw Performed By: #### 7 0207 #### [facility] [address] [place] [address], [facility] Iron [Mass/Vol] 31 ug/dL Low 50-212 The [facility] Comment on above: Order Comment: No: D o not add to previous draw Performed By: #### 7 0207 #### [address] TIBC 349 mcg/dL Normal 250-450 The [facility] Comment on above: Order Comment: No: D o not add to previous draw Performed By: #### 7 0207 #### [address] UIBC 318 mcg/dL Normal 155-355 The [facility] Comment on above: Order Comment: No: D o not add to previous draw Performed By: #### 7 0207 #### [address] TROPONIN-Ion 04-25-2022 Troponin I.cardiac [Mass/Vol] 0.03 ng/mL Normal 0.00-[address] [facility] Comment on above: Order Comment: No: D o not add to previous draw Result Comment: REFE RENCE RANGES: 0.00 - 0.04 ng/ml NORMAL 0.05 - 0.50 ng/ml INDETERMINATE > 0.50 ng/ml CONSISTENT WITH AN M.I. Performed By: #### 3 5 #### [address] US RENAL WITH BLADDERon 04-08 US RENAL WITH BLADDER [facility] Department of Radiology [address] [place], [place] [id number] Patient Name: MAN PATEL : 1950 Sex: M Age: Race: White Pt. Location: [address] [place] [address] Patient Status: I Ordered Date: 04/25/2022 3:40:00 PM Completed Date: 04/25/2022 05:02 PM Requesting Provider: MANUEL MORSE Attending Provider: TAYLOR HOWARD Report Copy To: Signs & Symptoms: History of Renal Failure History: See Comments Comments: R/O Hydronephrosis Exam: US RENAL WITH BLADDER Addendum Begins The urinary bladder is decompressed and not well-visualized secondary to diminished sonographic penetration and windows. Electronically signed: Tiffanie Castillo. Addendum Ends US RENAL WITH BLADDER 04/25/2022 5:02 PM CLINICAL INDICATIONS: History of Renal Failure TECHNOLOGIST COMMENTS: QUESTION FOR THE RADIOLOGIST: R/O Hydronephrosis COMPARISON: None. FINDINGS: Right kidney measures 11.6 x 7.9 x 8 cm. In the lower pole of the right kidney is a simple cyst measuring 3.1 x 2.2 cm. No solid mass no shadowing stones. Left kidney measures 9.5 x 6.2 x 7.5 cm. In the lower pole of the left kidney there is a 7.1 x 4.9 x 4.4 cm cyst this has some internal septations present. Septations are only about 2.5 mm. There was not imaged. IMPRESSION: Bilateral renal cysts. Left cyst demonstrates a thin septation but is still a Bosniak 2 cyst. Electronically signed: Joel Lambert. Transcribed by: [email or web address], User Resident: Electronically Signed by: TIFFANIE CASTILLO @ 05/08/2022 08:26 AM Normal The [facility] Comment on above: Order Comment: R/O H ydronephrosis BNPon 04-24-2022 Natriuretic peptide B (Bld) [Mass/Vol] 43476.0 pg/mL Critically high <=900.0 The [facility] Comment on above: Performed By: #### H STROPN, BNP, BMP ####[facility] [address] [place] [id number]. Elba Anthony CBC AUTO DIFFon 04-24-2022 BASO # 0.1 103/ul Normal 0.0-0.1 The [facility] ospital Comment on above: Performed By: #### C BC ####[facility] [address] [place] [address]Dr. Nereydasiobhan Anthony Basophils/100 WBC (Bld) 0.8 % Normal 0.2-2.0 [facility] Comment on above: Performed By: #### C BC ####[facility] [address] [place], [place] [address]Dr. Elba Anthony EO # 0.2 103/ul Normal 0.0-0.7 The [facility] ospital Comment on above: Performed By: #### C BC ####[facility] Qqcecwhij[address] [place], [place] [address]Dr. Elba Anthony Eosinophils/100 WBC (Bld) 3.0 % Normal 0.9-7.0 The [facility] Comment on above: Performed By: #### C BC ####[facility] L[address] [place], [place] [address]Dr. Nereydasiobhan Anthony Erythrocyte distribution wid th (RBC) [Ratio] 20.0 % Critically high 11.0-15.0 The [facility] pital Comment on above: Performed By: #### C BC ####[facility] Bcus[address]aw[address] [place], [place] [address]Dr. Elba Anthony Hematocrit (Bld) [Volume fraction] 32.7 % Critically low 42.0-54.0 The [facility] Comment on above: Performed By: #### C BC ####[facility] Ocb[address]al[address] [place], [place] [address]Dr. Elba Anthony Hemoglobin (Bld) [Mass/Vol] 9.7 g/dL Critically low 14.0 -18.0 [facility] Comment on above: Performed By: #### C BC ####[facility] [address]yr[address] [place], [place] [address]Dr. Elba Anthony IG # 0.02 10e3/ul Normal 0.00-0.03 [facility] Comment on above: Performed By: #### C BC ####[facility] [address] [place] [address]Dr. Elba Anthony IG % 0.3 % Normal 0.0-0.5 [facility] ospital Comment on above: Performed By: #### C BC ####[facility] [address] [place] [address]Dr. Elba Anthony LYMPH # 0.3 103/ul Critically low 1.2-3.8 [facility] Comment on above: Performed By: #### C BC ####[facility] [address]rsp[address] [place] [address]Dr. Elba Anthony Lymphocytes/100 WBC (Bld) 4.9 % Critically low 20.5-6 0.0 [facility] Comment on above: Performed By: #### C BC ####[facility] F[address]va[address] [place], [place] [address]DrLatoya Anthony MANUAL DIFF REQ NO Normal [facility] Comment on above: Performed By: #### C BC ####[facility] Namkqmkexv[address] [place], [place] [address]DrLaotya Anthony MCH (RBC) [Entitic mass] 23.8 pg Critically low 25.9-34 .0 [facility] Comment on above: Performed By: #### C BC ####[facility] [address] [place] [address]DrLatoya Anthony MCHC (RBC) [Mass/Vol] 29.7 g/dL Critically low 29.9-35.2 [facility] Comment on above: Performed By: #### C BC ####[facility] [address]hr[address] [place], [place] [address]Dr. Elba Anthony MCV (RBC) [Entitic vol] 80.3 fL Normal 80.0-94.0 [facility] Comment on above: Performed By: #### C BC ####[facility] Vvivsteyiw[address] [place], [place] [address]Dr. Elba Anthony MONO # 0.6 103/ul Normal 0.3-0.8 The [facility] ospital Comment on above: Performed By: #### C BC ####[facility] X[address] [place], [place] [address]Dr. Elba Anthony Monocytes/100 WBC (Bld) 9.6 % Normal 1.7-12.0 [facility] Comment on above: Performed By: #### C BC ####[facility] Xuq[address]ant[address] [place], [place] [address]Dr. Elba Anthony NEUT # 5.2 103/ul Normal 1.4-6.5 The [facility] ospital Comment on above: Performed By: #### C BC ####[facility] [address]anodu[address] [place], [place] [address]Dr. Elba Anthony Neutrophils/100 WBC (Bld) 81.4 % Critically high 43.0- 75.0 The [facility] Comment on above: Performed By: #### C BC ####[facility] K[address]gtkgwdwy[address] [place], [place] [address]Dr. Elba Anthony Platelet mean volume (Bld) [ Entitic vol] 10.1 fL Normal 9.5-13.5 The [facility] pital Comment on above: Performed By: #### C BC ####[facility] [address]ixvqcjpjc[address] [place], [place] [address]Dr. Elba Anthony PLT 214 103/ul Normal 150-450 The [facility] ospital Comment on above: Performed By: #### C BC ####[facility] W[address]ns[address] [place], [place] [address]Dr. Elba Anthony RBC 4.07 106/ul Critically low 4.70-6.10 The [facility] Comment on above: Performed By: #### C BC ####[facility] F[address]em[address] [place], [place] [address]Dr. Elba Anthony WBC 6.4 103/ul Normal 4.0-11.0 The [facility] ospital Comment on above: Performed By: #### C BC ####[facility] Sk[address]buv[address] [place], [place] [address]Dr. Nereydasiobhan Raj Covid-19 PCR (CVDTBH)on 04-08 SARS-CoV-2 (COVID-19) RNA ELIZABETH+probe Ql (Unsp spec) Not detected Normal NOT DETECTED The [facility] Comment on above: Result Comment: When diagnostic testing is negative, the possibility of a false negative should be considered inthe context of a patient's recent exposures and the presence of clinical signs and symptomsconsistent with SARS-CoV-2.This test is not yet approved or cleared by the [place] FDA. When there are no FDA-approved or cleared tests available, and other criteria are met, FDA can make tests available under an emergency access mechanism called an Emergency Use Authorization (EUA). The EUA for this test is supported by the Md Ophthalmologist of Health and Human Service's declaration that circumstances exist to justify the emergency use of in vitro diagnostics for the detection and/or diagnosis of the virus that causes COVID-19. This EUA will remain in effect for the duration of the COVID-19 declaration justifying emergency of IVDs, unless it is terminated or revoked by the FDA (after which the test may no longer be used). Performed By: #### C VDTBH ####[facility] Fvvzybaekc[address] [place], [place] [address]Dr. Elba Anthony ER URINE PROFILEon 2 Bilirubin Ql (U) Negative Normal NEGATIVE The [facility] Comment on above: Performed By: #### E RUR ####[facility] [address] [place], [place] [address]Dr. Elba Anthony Clarity (U) CLEAR Normal CLEAR The [facility] Comment on above: Performed By: #### E RUR ####[facility] Vnsdvem[address] [place], [place] [address]Dr. Elba Anthony Color (U) LT. YELLOW Normal YELLOW The [facility]spital Comment on above: Performed By: #### E RUR ####[facility] L[address]ef[address]vv[address] [place], [place] [address]Dr. Elba Anthony ERUAHD A micrscopic examina tion will be performed if indicated. Normal The [facility] Comment on above: Performed By: #### E RUR ####[facility] [address] [place] [address]Dr. Elba Anthony Glucose Ql (U) Negative Normal NEGATIVE The [facility] Comment on above: Performed By: #### E RUR ####[facility] Kx[address]ntq[address] [place], [place] [address]Dr. Elba Anthony Hemoglobin Ql (U) Negative Normal NEGATIVE The [facility] Comment on above: Performed By: #### E RUR ####[facility] Amollotcvo[address] [place], [place] [address]Dr. Elba Anthony Ketones Ql (U) Negative Normal NEGATIVE The [facility] Comment on above: Performed By: #### E RUR ####[facility] Imasbocros[address] [place], [place] [address]Dr. Elba Anthony LEUKOCYTES Negative Normal NEGATIVE The [facility] Comment on above: Performed By: #### E RUR ####[facility] Jqwc[address]mmwn[address] [place], [place] [address]Dr. Elba Anthony Nitrite Ql (U) Negative Normal NEGATIVE The [facility] Comment on above: Performed By: #### E RUR ####[facility] Dbttxkimbw[address] [place], [place] [address]Dr. Elba Anthony pH (U) 6.0 [pH] Normal 5-9 The [facility] Comment on above: Performed By: #### E RUR ####[facility] Ovoayujirq[address] [place], [place] [address]Dr. Elba Anthony SPEC GRAVITY 1.010 Normal 1.005-<=1.025 The [facility] Comment on above: Performed By: #### E RUR ####[facility] Xrqsemwxnh[address] [place], [place] [address]Dr. Elba Anthony UA PROTEIN Negative Normal NEGATIVE/ TRACE The [facility] Comment on above: Performed By: #### E RUR ####[facility] G[address]et[address] [place], [place] [address]Dr. Elba Anthony UR MICRO IND NOT INDICATED Normal The [facility] Comment on above: Performed By: #### E RUR ####[facility] [address] [place] [address]Dr. Elba Anthony Urobilinogen Qn (U) 2.0 {Caden'U}/dL Abnormal 0.2 - 1. 0 [facility] Comment on above: Performed By: #### E RUR ####[facility] [address] [place] [address]Dr. Elba Anthony PROF CHEM 8 (BAS METB)on Anion gap [Moles/Vol] 16.7 mmol/L Normal [facility] Comment on above: Performed By: #### H STROPN, BNP, BMP ####[facility] [address] [place] [address]Dr. Elba Anthony Calcium [Mass/Vol] 9.2 mg/dL Normal 8.5-10.1 [facility] Comment on above: Performed By: #### H STROPN, BNP, BMP ####[facility] [address] [place] [address]Dr. Elba Anthony Chloride [Moles/Vol] 97 mmol/L Critically low 98-107 [facility] Comment on above: Performed By: #### H STROPN, BNP, BMP ####[facility] [address]simcbn[address] [place] [address]Dr. Elba Anthony CO2 [Moles/Vol] 26.3 mmol/L Normal 21.0-32.0 [facility] Comment on above: Performed By: #### H STROPN, BNP, BMP ####[facility] Lat[address]ai[address] [place] [address]Dr. Elba Anthony Creatinine [Mass/Vol] 3.32 mg/dL Critically high 0.70-1.30 [facility] Comment on above: Performed By: #### H STROPN, BNP, BMP ####[facility] [address] [place] [address]Dr. Elba Anthony EGFR-AF CONGOLESE 22 mL/min/1.73m2 Critically low >=60 [facility] Comment on above: Performed By: #### H STROPN, BNP, BMP ####[facility] [address] [place] [address]Dr. Elba Anthony EGFR-NON AF CONGOLESE 18 mL/min/1.73m2 Critically low >=60 [facility] Comment on above: Performed By: #### H STROPN, BNP, BMP ####[facility] Bprcjxutia[address] [place] [address]Dr. Elba Anthony Glucose [Mass/Vol] 158 mg/dL Critically high 74-[address] [facility] Comment on above: Performed By: #### H STROPN, BNP, BMP ####[facility] [address]fr[address]av[address] [place] [address]Dr. Elba Anthony Potassium [Moles/Vol] 5.0 mmol/L Normal 3.5-5.1 [facility] Comment on above: Performed By: #### H STROPN, BNP, BMP ####[facility] [address]dc[address]kr[address] [place] [address]Dr. Elba Anthony Sodium [Moles/Vol] 135 mmol/L Critically low 136-145 [facility] Comment on above: Performed By: #### H STROPN, BNP, BMP ####[facility] [address]jbuzchey[address] [place] [address]Dr. Elba Anthony Urea nitrogen [Mass/Vol] 67.0 mg/dL Critically high 7.0-18 .0 [facility] Comment on above: Performed By: #### H STROPN, BNP, BMP ####[facility] [address]nefbrr[address] [place] [address]Dr. Elba Anthony Urea nitrogen/Creatinine [Mass ratio] 20.2 mg/mg Normal The [facility] Comment on above: Performed By: #### H STROPN, BNP, BMP ####[facility] Etilkqrvel[address] [place] [address]Dr. Elba Anthony TROPONIN, HIGH SENSITIVITYon 04-24-2022 HSTROP 36.4 pg/mL Normal 4.0-76.1 [facility] ospital Comment on above: Result Comment: CUT- OFF POINTS HAVE BEEN ESTABLISHED BASED ON THE FOURTH UNIVERSAL DEFINITIONS OF MYOCARDIALINFARCTION. THE UPPER REFERENCE LIMIT (URL) OF TROPONIN, DEFINED THE 99TH PERCENTILE OFcTnI DISTRIBUTION IN A REFERENCE POPULATION, HAS BEEN CONFIRMED THE DECISION THRESHOLDFOR VA DIAGNOSIS. Performed By: #### H STROPN, BNP, BMP ####[facility] Z[address]jpdc[address] [place] [address]Dr. Elba Anthony XR CHEST 1 Von 04-24-2022 XR CHEST 1 V Normal [facility] BNPon 04-22-2022 Natriuretic peptide B (Bld) [Mass/Vol] 48853.0 pg/mL Critically high <=900.0 The [facility] spital Comment on above: Performed By: #### B DIRECTOR OF SOCIAL WORK, BMP ####[facility] Wnkaifpybz[address] [place], [place] [address]Dr. Elba Anthony PROF CHEM 8 (BAS METB)on Anion gap [Moles/Vol] 13.8 mmol/L Normal [facility] Comment on above: Performed By: #### B DIRECTOR OF SOCIAL WORK, BMP ####[facility] M[address]zkptuax[address] [place], [place] [address]Dr. Elba Anthony Calcium [Mass/Vol] 8.7 mg/dL Normal 8.5-10.1 [facility] Comment on above: Performed By: #### B DIRECTOR OF SOCIAL WORK, BMP ####[facility] Ppcobvstyc[address] [place], [place] [address]Dr. Elba Anthony Chloride [Moles/Vol] 98 mmol/L Normal 98-107 [facility] Comment on above: Performed By: #### B DIRECTOR OF SOCIAL WORK, BMP ####[facility] Hogavdasef[address] [place], [place] [address]Dr. Elba Anthony CO2 [Moles/Vol] 29.1 mmol/L Normal 21.0-32.0 [facility] Comment on above: Performed By: #### B DIRECTOR OF SOCIAL WORK, BMP ####[facility] Tkcysvemvp6[address] [place], [place] [address]Dr. Elba Anthony Creatinine [Mass/Vol] 2.89 mg/dL Critically high 0.70-1.30 [facility] Comment on above: Performed By: #### B DIRECTOR OF SOCIAL WORK, BMP ####[facility] Gaqlkcmjza[address] [place], [place] [address]Dr. Elba Anthony EGFR-AF CONGOLESE 26 mL/min/1.73m2 Critically low >=60 [facility] Comment on above: Performed By: #### B DIRECTOR OF SOCIAL WORK, BMP ####[facility] Aqckjlzwpp[address] [place], [place] [address]Dr. Elba Anthony EGFR-NON AF CONGOLESE 22 mL/min/1.73m2 Critically low >=60 [facility] Comment on above: Performed By: #### B DIRECTOR OF SOCIAL WORK, BMP ####[facility] Vfkfvcduux[address] [place], [place] [address]Dr. Elba Anthony Glucose [Mass/Vol] 108 mg/dL Critically high 74-106 [facility] Comment on above: Performed By: #### B DIRECTOR OF SOCIAL WORK, BMP ####[facility] Wmlzgiyoow[address] [place], [place] [address]Dr. Elba Anthony Potassium [Moles/Vol] 4.9 mmol/L Normal 3.5-5.1 [facility] Comment on above: Performed By: #### B DIRECTOR OF SOCIAL WORK, BMP ####[facility] N[address]usqrddlw[address] [place], [place] [address]Dr. Elba Anthony Sodium [Moles/Vol] 136 mmol/L Normal 136-145 [facility] Comment on above: Performed By: #### B DIRECTOR OF SOCIAL WORK, BMP ####[facility] Nakcaarbiz[address] [place], [place] [address]Dr. Elba Anthony Urea nitrogen [Mass/Vol] 63.0 mg/dL Critically high 7.0-18 .0 [facility] Comment on above: Performed By: #### B DIRECTOR OF SOCIAL WORK, BMP ####[facility] Nmgrzqrutr[address] [place], [place] [address]Dr. Elba Anthony Urea nitrogen/Creatinine [Mass ratio] 21.8 mg/mg Normal The [facility] Comment on above: Performed By: #### B DIRECTOR OF SOCIAL WORK, BMP ####[facility] Wzsqiwnfrg[address] [place], [place] [address]Dr. Elba Anthony BNPon 04-15-2022 Natriuretic peptide B (Bld) [Mass/Vol] 66968.0 pg/mL Critically high <=900.0 The [facility] Comment on above: Result Comment: repe ated Performed By: #### B DIRECTOR OF SOCIAL WORK, BMP ####[facility] Hfbzxaucfq[address] [place], [place] [address]Dr. Nereydasiobhan Raj PROF CHEM 8 (BAS METB)on Anion gap [Moles/Vol] 16.8 mmol/L Normal [facility] Comment on above: Performed By: #### B DIRECTOR OF SOCIAL WORK, BMP ####[facility] Wdwfclulid[address] [place], [place] [address]Dr. Elba Anthony Calcium [Mass/Vol] 8.4 mg/dL Critically low 8.5-10.1 [facility] Comment on above: Performed By: #### B DIRECTOR OF SOCIAL WORK, BMP ####[facility] Af[address]zflqra[address] [place], [place] [address]Dr. Elba Anthony Chloride [Moles/Vol] 96 mmol/L Critically low 98-107 [facility] Comment on above: Performed By: #### B DIRECTOR OF SOCIAL WORK, BMP ####[facility] Rzgijvtaev[address] [place], [place] [address]Dr. Elba Anthony CO2 [Moles/Vol] 26.9 mmol/L Normal 21.0-32.0 [facility] Comment on above: Performed By: #### B DIRECTOR OF SOCIAL WORK, BMP ####[facility] Vmgqgbxhdy[address] [place], [place] [address]Dr. Elba Anthony Creatinine [Mass/Vol] 2.83 mg/dL Critically high 0.70-1.30 [facility] Comment on above: Performed By: #### B DIRECTOR OF SOCIAL WORK, BMP ####[facility] Uskbdcshcf[address] [place], [place] [address]Dr. Elba Anthony EGFR-AF CONGOLESE 27 mL/min/1.73m2 Critically low >=60 [facility] Comment on above: Performed By: #### B DIRECTOR OF SOCIAL WORK, BMP ####[facility] [address]qzfpgw[address] [place], [place] [address]Dr. Elba Anthony EGFR-NON AF CONGOLESE 22 mL/min/1.73m2 Critically low >=60 [facility] Comment on above: Performed By: #### B DIRECTOR OF SOCIAL WORK, BMP ####[facility] [address]qr[address] [place], [place] [address]Dr. Elba Anthony Glucose [Mass/Vol] 118 mg/dL Critically high 74-[address] [facility] Comment on above: Performed By: #### B DIRECTOR OF SOCIAL WORK, BMP ####[facility] Cmwkkrvwee[address] [place], [place] [address]Dr. Elba Anthony Potassium [Moles/Vol] 4.7 mmol/L Normal 3.5-5.1 [facility] Comment on above: Performed By: #### B DIRECTOR OF SOCIAL WORK, BMP ####[facility] Eailycmpsw[address] [place], [place] [address]Dr. Elba Anthony Sodium [Moles/Vol] 135 mmol/L Critically low 136-145 [facility] Comment on above: Performed By: #### B DIRECTOR OF SOCIAL WORK, BMP ####[facility] Anynsvazjo[address] [place], [place] [address]Dr. Elba Anthony Urea nitrogen [Mass/Vol] 68.0 mg/dL Critically high 7.0-18 .0 [facility] Comment on above: Performed By: #### B DIRECTOR OF SOCIAL WORK, BMP ####[facility] Sw[address]ifqfonc[address] [place], [place] [address]Dr. Elba Anthony Urea nitrogen/Creatinine [Mass ratio] 24.0 mg/mg Normal [facility] Comment on above: Performed By: #### B DIRECTOR OF SOCIAL WORK, BMP ####[facility] Jketvpwpry[address] [place], [place] [address]Dr. Elba Anthony BNPon 04-02-2022 Natriuretic peptide B (Bld) [Mass/Vol] 02170.0 pg/mL Critically high <=900.0 [facility] Comment on above: Performed By: #### B DIRECTOR OF SOCIAL WORK, BMP ####[facility] Hxqbyzamgm[address] [place], [place] [address]Dr. Elba Anthony PROF CHEM 8 (BAS METB)on Anion gap [Moles/Vol] 9.7 mmol/L Normal [facility] Comment on above: Performed By: #### B DIRECTOR OF SOCIAL WORK, BMP ####[facility] Mzwbryhiyc[address] [place], [place] [address]Dr. Elba Anthony Calcium [Mass/Vol] 8.8 mg/dL Normal 8.5-10.1 [facility] Comment on above: Performed By: #### B DIRECTOR OF SOCIAL WORK, BMP ####[facility] Ecdsuobner[address] [place], [place] [address]Dr. Elba Anthony Chloride [Moles/Vol] 99 mmol/L Normal 98-107 [facility] Comment on above: Performed By: #### B DIRECTOR OF SOCIAL WORK, BMP ####[facility] Zguuxuqbzd[address] [place], [place] [address]Dr. Elba Anthony CO2 [Moles/Vol] 31.1 mmol/L Normal 21.0-32.0 [facility] Comment on above: Performed By: #### B DIRECTOR OF SOCIAL WORK, BMP ####[facility] Wfviyzdeql[address] [place], [place] [address]Dr. Elba Anthony Creatinine [Mass/Vol] 2.45 mg/dL Critically high 0.70-1.30 [facility] Comment on above: Performed By: #### B DIRECTOR OF SOCIAL WORK, BMP ####[facility] Obfvfluouo[address] [place], [place] [address]Dr. Elba Anthony EGFR-AF CONGOLESE 32 mL/min/1.73m2 Critically low >=60 [facility] Comment on above: Performed By: #### B DIRECTOR OF SOCIAL WORK, BMP ####[facility] Bxkfndmjac[address] [place], [place] [address]Dr. Elba Anthony EGFR-NON AF CONGOLESE 26 mL/min/1.73m2 Critically low >=60 [facility] Comment on above: Performed By: #### B DIRECTOR OF SOCIAL WORK, BMP ####[facility] Zkwqvfysos[address] [place], [place] [address]Dr. Elba Anthony Glucose [Mass/Vol] 101 mg/dL Normal 74-106 [facility] Comment on above: Performed By: #### B DIRECTOR OF SOCIAL WORK, BMP ####[facility] Vzdalmgxxv37[address] [place], [place] [address]Dr. Nereydasiobhan Anthony Potassium [Moles/Vol] 3.8 mmol/L Normal 3.5-5.1 [facility] Comment on above: Performed By: #### B DIRECTOR OF SOCIAL WORK, BMP ####[facility] Wcbgpavmbe[address] [place], [place] [address]Dr. Elba Anthony Sodium [Moles/Vol] 136 mmol/L Normal 136-145 [facility] Comment on above: Performed By: #### B DIRECTOR OF SOCIAL WORK, BMP ####[facility] [address]cr[address] [place] [address]Dr. Elba Anthony Urea nitrogen [Mass/Vol] 46.0 mg/dL Critically high 7.0-18 .0 [facility] Comment on above: Performed By: #### B DIRECTOR OF SOCIAL WORK, BMP ####[facility] Fxqjovdpzv3[address] [place] [address]Dr. Elba Anthony Urea nitrogen/Creatinine [Mass ratio] 18.8 mg/mg Normal [facility] Comment on above: Performed By: #### B DIRECTOR OF SOCIAL WORK, BMP ####[facility] Qxkozkmwzt0513 [place] [address]Dr. Elba Anthony CBC W MANUAL DIFFon 04-01-20 22 ANISOCYTOSIS 1+ Normal [facility] Comment on above: Performed By: #### C ADALGISA ####[facility] Jpkjioqsdi[address] [place], [place] [address]Dr. Elba Anthony ATYPICAL LYMPH # 0.00 103/ul Normal [facility] Comment on above: Performed By: #### C ADALGISA ####[facility] Ahidkukthi32[address] [place] [address]Dr. Elba Anthony ATYPICAL LYMPH % 0 % Normal [facility] Comment on above: Performed By: #### C BCVINCENT ####[facility] Lckfzgxpiq68[address] [place] [address]Dr. Elba Anthony BAND # 0.4 103/ul Critically high 0.0-0.3 [facility] Comment on above: Performed By: #### C BCMAN ####[facility] Hwxysifylr98[address] [place] [address]Dr. Elba Anthony BAND % 4 % Normal 0-5 [facility] Comment on above: Performed By: #### C BCMAN ####[facility] Cdiyvfovua[address] [place] [address]Dr. Elba Raj BASOM # 0.00 103/ul Normal 0.00-0.10 [facility] Comment on above: Performed By: #### C BCMAN ####[facility] Ofydzvehcc4989 [place] [address]Dr. Elba Anthony BASOM % 0.0 % Critically low 0.2-2.0 [facility] Comment on above: Performed By: #### C BCMAN ####[facility] Vlytragnyc3343 [place] [address]Dr. Elba Anthony BLAST # 0.0 103/ul Normal [facility] Comment on above: Performed By: #### C BCMAN ####[facility] Rvfpkaqoyr3471 [place] [address]Dr. Elba Anthony BLAST % 0 % Normal [facility] Comment on above: Performed By: #### C BCVINCENT ####[facility] Kavpkgzncp[address] [place], [place] [address]Dr. Elba Anthony CORRECTED WBC Normal 4.0-11.0 The [facility] Comment on above: Performed By: #### C BCVINCENT ####[facility] Okdodkwczs25[address] [place] [address]Dr. Elba Anthony EOS # 0.00 103/ul Normal 0.00-0.70 [facility] Comment on above: Performed By: #### C BCVINCENT ####[facility] Uqkcrvqonw[address] [place], [place] [address]Dr. Elba Anthony EOS% 0.0 % Critically low 0.9-7.0 [facility] Comment on above: Performed By: #### C BCMAN ####[facility] Yvshtgvrfo8440 [place] [address]Dr. Elba Anthony HCT 31.3 % Critically low 42.0-54.0 [facility] Comment on above: Performed By: #### C BCMAN ####[facility] Joakdtccvx5930 [place] [address]Dr. Elba Anthony HGB 9.2 g/dl Critically low 14.0-18.0 [facility] Comment on above: Performed By: #### C BCVINCENT ####[facility] Hhdojriayn8402 [place] [address]Dr. Elba Anthony HYPOCHROMASIA SLIGHT Normal [facility] Comment on above: Performed By: #### C ADALGISA ####[facility] Zbipfcwgep6280 [place] [address]Dr. Elba Anthony LYMPHM # 0.32 103/ul Critically low 1.20-3.80 The [facility] Comment on above: Performed By: #### C ADALGISA ####[facility] Zogjbtzgla8939 [place] [address]Dr. Elba Anthony LYMPHM% 3.0 % Critically low 20.5-60.0 [facility] Comment on above: Performed By: #### C ADALGISA ####[facility] Tcpaihcwvw4588 [place] [address]Dr. Elba Anthony MCH 23.2 pg Critically low 25.9-34.0 [facility] Comment on above: Performed By: #### C ADALGISA ####[facility] Oaopnqjhlu1427 [place] [address]Dr. Elba Anthony MCHC 29.4 g/dl Critically low 29.9-35.2 [facility] Comment on above: Performed By: #### C ADALGISA ####[facility] Ntjwubpimr4178 [place] [address]Dr. Elba Anthony MCV 79.0 fL Critically low 80.0-94.0 [facility] Comment on above: Performed By: #### C ADALGISA ####[facility] Ekoqiynrou6845 [place] [address]Dr. Elba Anthony METAMYELOCYTE # 0.1 103/ul Normal [facility] Comment on above: Performed By: #### C ADALGISA ####[facility] [address]quw[address] [place], [place] [address]Dr. Elba Anthony METAMYELOCYTE % 1 % Normal [facility] Comment on above: Performed By: #### C ADALGISA ####[facility] Dbjfntuxsn[address] [place], [place] [address]Dr. Elba Anthony MICROCYTOSIS SLIGHT Normal [facility] Comment on above: Performed By: #### C ADALGISA ####[facility] Natzdbsyls5743 [place] [address]Dr. Elba Anthony MONOM# 0.32 103/ul Normal 0.30-0.80 [facility] Comment on above: Performed By: #### C ADALGISA ####[facility] Csxrhmxlqe4405 [place] [address]Dr. Elba Anthony MONOM% 3.0 % Normal 1.7-12.0 [facility] ostal Comment on above: Performed By: #### C ADALGISA ####[facility] Zfafppbkzx5650 [place] [address]Dr. Elba Anthony MPV 9.9 fL Normal 9.5-13.5 [facility] ostal Comment on above: Performed By: #### Abdoul DIANA ####[facility] Hxgafnugho[address] [place], [place] [address]Dr. Elba Anthony MYELOCYTE # 0.0 103/ul Normal [facility] Comment on above: Performed By: #### Abdoul DIANA ####[facility] Jjsoksgkce9054 [place] [address]Dr. Elba Anthony MYELOCYTE % 0 % Normal [facility] Comment on above: Performed By: #### C ADALGISA ####[facility] Kdzwwvobtk5242 [place] [address]Dr. Elba Anthony NRBC 0 Normal [facility] Comment on above: Performed By: #### Abdoul DIANA ####[facility] Bxofertgsy3546 [place] [address]Dr. Elba Anthony PLT 167 103/ul Normal 150-450 [facility] Comment on above: Performed By: #### C ADALGISA ####[facility] Xvtnngnuje0066 [place] [address]Dr. Elba Anthony RBC 3.96 106/ul Critically low 4.70-6.10 [facility] Comment on above: Performed By: #### Abdoul DIANA ####[facility] Csbrgbxknd[address] [place], [place] [address]Dr. Elba Anthony RDW 19.8 % Critically high 11.0-15.0 [facility] Comment on above: Performed By: #### C ADALGISA ####[facility] Pkidokjbvd6036 [place] [address]Dr. Elba Anthony SEG # 9.52 103/ul Critically high 1.40-6.50 [facility] Comment on above: Performed By: #### C ADALGISA ####[facility] Ncficfguia4584 [place] [address]Dr. Elba Anthony SEG % 89.0 % Critically high 43.0-75.0 [facility] Comment on above: Performed By: #### C ADALGISA ####[facility] Qglunfywjq7923 [place] [address]Dr. Elba Raj WBC 10.7 103/ul Normal 4.0-11.0 [facility] Comment on above: Performed By: #### C ADALGISA ####[facility] Fdxqkvasff7110 [place] [address]Dr. Elba Raj CT CSPINE WO CONon CT CSPINE WO CON Normal [facility] CT HEAD WO CONon 04-01-2022 CT HEAD WO CON Normal [facility] PROF 14(COMP METB)on 022 Albumin [Mass/Vol] 2.8 g/dL Critically low 3.4-5.0 [facility] Comment on above: Performed By: #### C MP ####[facility] Ydjzyeziil4315 [place] [address]Dr. Elba Raj Albumin/Globulin [Mass ratio] 0.6 {ratio} Normal [facility] Comment on above: Performed By: #### C MP ####[facility] Nlrnoiyrzx8901 [place] [address]Dr. Elba Anthony ALP [Catalytic activity/Vol] 81 U/L Normal 46-116 [facility] Comment on above: Performed By: #### C MP ####[facility] Ggoqnktiin8826 [place] [address]Dr. Elba Anthony ALT [Catalytic activity/Vol] 15 U/L Critically low 16- 63 [facility] Comment on above: Performed By: #### C MP ####[facility] Faskkhbgai6667 [place] [address]Dr. Elba Anthony Anion gap [Moles/Vol] 9.2 mmol/L Normal [facility] Comment on above: Performed By: #### C MP ####[facility] Gujmflhiez3003 [place] [address]Dr. Elba Anthony AST [Catalytic activity/Vol] 21 U/L Normal 15-37 [facility] Comment on above: Performed By: #### C MP ####[facility] Bmncfkixnz0577 [place] [address]Dr. Elba Raj Bilirubin [Mass/Vol] 1.7 mg/dL Critically high 0.2-1.0 [facility] Comment on above: Performed By: #### C MP ####[facility] Tjhpbqadba[address] [place], [place] [address]Dr. Nereydasiobhan Raj Calcium [Mass/Vol] 9.0 mg/dL Normal 8.5-10.1 [facility] Comment on above: Performed By: #### C MP ####[facility] Jrxstbcgvw[address] [place], [place] [address]Dr. Elba Raj Chloride [Moles/Vol] 99 mmol/L Normal 98-107 [facility] Comment on above: Performed By: #### C MP ####[facility] Bncoecndya4069 [place] [address]Dr. Elba Raj CO2 [Moles/Vol] 30.7 mmol/L Normal 21.0-32.0 [facility] Comment on above: Performed By: #### C MP ####[facility] [address]ekvkwylpn[address] [place], [place] [address]Dr. Elba Raj Creatinine [Mass/Vol] 2.60 mg/dL Critically high 0.70-1.30 [facility] Comment on above: Performed By: #### C MP ####[facility] Mcbvrxnlyj8854 [place] [address]Dr. Nereydasiobhan Raj EGFR-AF CONGOLESE 30 mL/min/1.73m2 Critically low >=60 [facility] Comment on above: Performed By: #### C MP ####[facility] Enpilhlmgi3665 [place] [address]Dr. Elba Anthony EGFR-NON AF CONGOLESE 25 mL/min/1.73m2 Critically low >=60 [facility] Comment on above: Performed By: #### C MP ####[facility] Jkoloofgor3587 [place] [address]Dr. lEba Raj Globulin (S) [Mass/Vol] 4.4 g/dL Normal [facility] Comment on above: Performed By: #### C MP ####[facility] Extzrijcoh1064 [place] [address]Dr. Elba Anthony Glucose [Mass/Vol] 130 mg/dL Critically high 74-106 [facility] Comment on above: Performed By: #### C MP ####[facility] Ngahbcgzqv[address] [place], [place] [address]Dr. Elba Raj Potassium [Moles/Vol] 3.9 mmol/L Normal 3.5-5.1 [facility] Comment on above: Performed By: #### C MP ####[facility] Ppfckndywp[address] [place], [place] [address]Dr. Elba Raj Protein [Mass/Vol] 7.2 g/dL Normal 6.4-8.2 [facility] Comment on above: Performed By: #### C MP ####[facility] Npmicisszr5107[address] [place], [place] [address]Dr. Nereydasiobhan Raj Sodium [Moles/Vol] 135 mmol/L Critically low 136-145 [facility] Comment on above: Performed By: #### C MP ####[facility] Egcvjfsuqk8[address] [place], [place] [address]Dr. Nereydasiobhan Raj Urea nitrogen [Mass/Vol] 41.0 mg/dL Critically high 7.0-18 .0 [facility] Comment on above: Performed By: #### C MP ####[facility] Hjitzjnssz[address] [place], [place] [address]Dr. Nereydasiobhan Raj Urea nitrogen/Creatinine [Mass ratio] 15.8 mg/mg Normal [facility] Comment on above: Performed By: #### C MP ####[facility] Dgezqokmwf[address] [place], [place] [address]Dr. Elba Anthony XR CHEST 1 Von 04-01-2022 XR CHEST 1 V Normal [facility] BNPon 01-07-2022 Natriuretic peptide B (Bld) [Mass/Vol] 9964.0 pg/mL Critically high <=900.0 [facility] spital Comment on above: Performed By: #### C MP, BNP ####[facility] Frdskhlatq0[address] [place], [place] [address]Dr. Elba Raj CBC W MANUAL DIFFon 01-08-20 22 ATYPICAL LYMPH # Normal [facility] Comment on above: Performed By: #### C ADALGISA ####[facility] Ikasqdamvx[address] [place], [place] [address]Dr. Elba Raj ATYPICAL LYMPH % Normal [facility] Comment on above: Performed By: #### C ADALGISA ####[facility] Tjgvwxzotv6[address] [place], [place] [address]Dr. Elba Anthony BAND # 0.1 103/ul Normal 0.0-0.3 [facility] Comment on above: Performed By: #### C ADALGISA ####[facility] Osvipnkobx[address] [place], [place] [address]Dr. Elba Anthony BAND % 1 % Normal 0-5 [facility] Comment on above: Performed By: #### C ADALGISA ####[facility] Cbaipbtkqs[address] [place], [place] [address]Dr. Elba Anthony BASOM # 0.00 103/ul Normal 0.00-0.10 [facility] Comment on above: Performed By: #### C ADALGISA ####[facility] Ojlvajfsiw6[address] [place], [place] [address]Dr. Nereydasiobhan Raj BASOM % 0.0 % Critically low 0.2-2.0 [facility] Comment on above: Performed By: #### C ADALGISA ####[facility] Qfxbosgoam04[address] [place], [place] [address]Dr. Elba Anthony BLAST # Normal [facility] Comment on above: Performed By: #### C ADALGISA ####[facility] Hnrhlprhbb2397 [place] [address]Dr. Elba Anthony BLAST % Normal [facility] Comment on above: Performed By: #### C ADALGISA ####[facility] Cyfqwuekqs7074 [place] [address]Dr. Elba Anthony CORRECTED WBC Normal 4.0-11.0 [facility] Comment on above: Performed By: #### C ADALGISA ####[facility] Xdgbkrgrvb8518 [place] [address]Dr. Elba Anthony EOS # 0.07 103/ul Normal 0.00-0.70 [facility] Comment on above: Performed By: #### C ADALGISA ####[facility] Txpdsceqxd2434 [place] [address]Dr. Elba Anthony EOS% 1.0 % Normal 0.9-7.0 [facility] ostal Comment on above: Performed By: #### C ADALGISA ####[facility] S[address]zqkvx[address] [place], [place] [address]Dr. Elba Anthony HCT 33.4 % Critically low 42.0-54.0 [facility] Comment on above: Performed By: #### C ADALGISA ####[facility] Klfdehpnlh7865 [place] [address]Dr. Elba Anthony HGB 9.8 g/dl Critically low 14.0-18.0 [facility] Comment on above: Performed By: #### C ADALGISA ####[facility] Khderaiqbd1332 [place] [address]Dr. Elba Anthony LYMPHM # 0.44 103/ul Critically low 1.20-3.80 [facility] Comment on above: Performed By: #### C ADALGISA ####[facility] Yzrxkviiyj9864 [place] [address]Dr. Elba Anthony LYMPHM% 6.0 % Critically low 20.5-60.0 [facility] Comment on above: Performed By: #### Abdoul DIANA ####[facility] Mmajynnkmn8607 [place] [address]Dr. Elba Anthony MCH 24.1 pg Critically low 25.9-34.0 [facility] Comment on above: Performed By: #### Abdoul DIANA ####[facility] Vtcrcmuyut7277 [place] [address]Dr. Elba Anthony MCHC 29.3 g/dl Critically low 29.9-35.2 [facility] Comment on above: Performed By: #### Abdoul DIANA ####[facility] Haiunthuyi5522 [place] [address]Dr. Elba Anthony MCV 82.1 fL Normal 80.0-94.0 [facility] Comment on above: Performed By: #### Abdoul DIANA ####[facility] Ixooktomca3363 [place] [address]Dr. Elba Anthony METAMYELOCYTE # Normal [facility] Comment on above: Performed By: #### Abdoul DIANA ####[facility] [address]vmeecfd[address] [place], [place] [address]Dr. Elba Anthony METAMYELOCYTE % Normal [facility] Comment on above: Performed By: #### Abdoul DIANA ####[facility] Ntqtyohxlo3988 [place] [address]Dr. Elba Anthony MONOM# 0.52 103/ul Normal 0.30-0.80 [facility] Comment on above: Performed By: #### Abdoul DIANA ####[facility] Pzptqnvuol6906 [place] [address]Dr. Elba Anthony MONOM% 7.0 % Normal 1.7-12.0 [facility] Comment on above: Performed By: #### Abdoul DIANA ####[facility] [address]dbqestz[address] [place], [place] [address]Dr. Elba Anthony MPV 9.5 fL Normal 9.5-13.5 [facility] Comment on above: Performed By: #### Abdoul DIANA ####[facility] Cpdelqrmbw[address] [place], [place] [address]Dr. Elba Anthony MYELOCYTE # Normal [facility] Comment on above: Performed By: #### C ADALGISA ####[facility] Osvcclgpdo9073 [place] [address]Dr. Elba Anthony MYELOCYTE % Normal [facility] Comment on above: Performed By: #### C BCVINCENT ####[facility] Hxevyqbdmo4497 [place] [address]Dr. lEba Anthony NRBC Normal [facility] Comment on above: Performed By: #### C ADALGISA ####[facility] Vthsxlnciy9927 [place] [address]Dr. Elba Anthony PLT 247 103/ul Normal 150-450 [facility] Comment on above: Performed By: #### C ADALGISA ####[facility] Bzxsaenmwe8011 [place] [address]Dr. Elba Anthony RBC 4.07 106/ul Critically low 4.70-6.10 [facility] Comment on above: Performed By: #### C ADALGISA ####[facility] Ebeatjptch2377 [place] [address]Dr. Elba Anthony RDW 18.7 % Critically high 11.0-15.0 [facility] Comment on above: Performed By: #### C ADALGISA ####[facility] Hgdmwjzdey8870 [place] [address]Dr. Elba Anthony SEG # 6.29 103/ul Normal 1.40-6.50 [facility] Comment on above: Performed By: #### C ADALGISA ####[facility] Krmzazunvj5032 [place] [address]Dr. Elba Anthony SEG % 85.0 % Critically high 43.0-75.0 [facility] Comment on above: Performed By: #### C ADALGISA ####[facility] Ahifhelxed5087 [place] [address]Dr. Elba Anthony WBC 7.4 103/ul Normal 4.0-11.0 [facility] Comment on above: Performed By: #### C BCMAN ####[facility] Qlmzhxtgsq[address] [place], [place] [address]Dr. Elba Anthony ER URINE PROFILEon 2 Bilirubin Ql (U) Negative Normal NEGATIVE [facility] Comment on above: Performed By: #### E RUR ####[facility] Gbkjhbduxi[address] [place], [place] [address]Dr. Elba Anthony Clarity (U) CLEAR Normal CLEAR [facility] Comment on above: Performed By: #### E RUR ####[facility] Ovggytggxy[address] [place], [place] [address]Dr. Elba Anthony Color (U) LT. YELLOW Normal YELLOW [facility] Comment on above: Performed By: #### E RUR ####[facility] Yoearzvkcr[address] [place], [place] [address]Dr. Elba Raj ERUAHD A micrscopic examina tion will be performed if indicated. Normal [facility] Comment on above: Performed By: #### E RUR ####[facility] Ykwsozjjdi[address] [place], [place] [address]Dr. Elba Anthony Glucose Ql (U) Negative Normal NEGATIVE [facility] Comment on above: Performed By: #### E RUR ####[facility] Nxsxbzxjws[address] [place], [place] [address]Dr. Elba Anthony Hemoglobin Ql (U) Negative Normal NEGATIVE [facility] Comment on above: Performed By: #### E RUR ####[facility] Gfwdwablke[address] [place], [place] [address]Dr. Elba Anthony Ketones Ql (U) Negative Normal NEGATIVE [facility] Comment on above: Performed By: #### E RUR ####[facility] Suogmqufhj[address] [place], [place] [address]Dr. Elba Anthony LEUKOCYTES Negative Normal NEGATIVE [facility] Comment on above: Performed By: #### E RUR ####[facility] Euztmomvfr[address] [place], [place] [address]Dr. Elba Anthony Nitrite Ql (U) Negative Normal NEGATIVE [facility] Comment on above: Performed By: #### E RUR ####[facility] Aetiyjeape[address] [place] [address]Dr. Elba Anthony pH (U) 5.0 [pH] Normal 5-9 The [facility] Comment on above: Performed By: #### E RUR ####[facility] Oyvtmmfbhy[address] [place] [address]Dr. Elba Anthony SPEC GRAVITY <=1.005 Abnormal 1.005-<=1.025 The [facility] Comment on above: Performed By: #### E RUR ####[facility] Vtgqceqjfw[address] [place], [place] [address]Dr. Elba Anthony UA PROTEIN Negative Normal NEGATIVE/ TRACE The [facility] Comment on above: Performed By: #### E RUR ####[facility] Rstaksvxcd460[address] [place], [place] [address]Dr. Elba Anthony UR MICRO IND NOT INDICATED Normal [facility] Comment on above: Performed By: #### E RUR ####[facility] Zcahybcmli17[address] [place], [place] [address]Dr. Elba Anthony Urobilinogen Qn (U) 0.2 {Caden'U}/dL Normal 0.2 - 1. 0 [facility] Comment on above: Performed By: #### E RUR ####[facility] Eovgioyesn9[address] [place], [place] [address]Dr. Elba Anthony PROF 14(COMP METB)on 022 Albumin [Mass/Vol] 2.9 g/dL Critically low 3.4-5.0 [facility] Comment on above: Performed By: #### C MP, BNP ####[facility] Ymzoaxcgfw[address] [place], [place] [address]Dr. Elba Anthony Albumin/Globulin [Mass ratio] 0.6 {ratio} Normal [facility] Comment on above: Performed By: #### C MP, BNP ####[facility] Zwaxgqzobr[address] [place], [place] [address]Dr. Elba Anthony ALP [Catalytic activity/Vol] 105 U/L Normal 46-116 [facility] Comment on above: Performed By: #### C MP, BNP ####[facility] Cqxejzzogh8716[address] [place], [place] [address]Dr. Elba Anthony ALT [Catalytic activity/Vol] 27 U/L Normal 16-63 [facility] Comment on above: Performed By: #### C MP, BNP ####[facility] Ayhpwzhfbu743[address] [place], [place] [address]Dr. Elba Anthony Anion gap [Moles/Vol] 10.7 mmol/L Normal [facility] Comment on above: Performed By: #### C MP, BNP ####[facility] Vlvbpjioen0085[address] [place], [place] [address]Dr. Elba Anthony AST [Catalytic activity/Vol] 20 U/L Normal 15-37 [facility] Comment on above: Performed By: #### C MP, BNP ####[facility] Clqjfinbqj5470[address] [place], [place] [address]Dr. Elba Anthony Bilirubin [Mass/Vol] 1.1 mg/dL Critically high 0.2-1.0 [facility] Comment on above: Performed By: #### C MP, BNP ####[facility] Gmhcyaapiy807[address] [place], [place] [address]Dr. Elba Anthony Calcium [Mass/Vol] 8.2 mg/dL Critically low 8.5-10.1 [facility] Comment on above: Performed By: #### C MP, BNP ####[facility] Gxreqkacxr5[address] [place], [place] [address]Dr. Elba Anthony Chloride [Moles/Vol] 99 mmol/L Normal 98-107 [facility] Comment on above: Performed By: #### C MP, BNP ####[facility] Vpmhmqokdy30[address] [place], [place] [address]Dr. Elba Anthony CO2 [Moles/Vol] 28.6 mmol/L Normal 21.0-32.0 [facility] Comment on above: Performed By: #### C MP, BNP ####[facility] Gszkelwbhq926[address] [place], [place] [address]Dr. Elba Anthony Creatinine [Mass/Vol] 2.06 mg/dL Critically high 0.70-1.30 [facility] Comment on above: Performed By: #### C MP, BNP ####[facility] Kgaiinujiv[address] [place] [address]Dr. Elba Anthony EGFR-AF CONGOLESE 39 mL/min/1.73m2 Critically low >=60 [facility] Comment on above: Performed By: #### C MP, BNP ####[facility] Kkxkyiydsp11[address] [place], [place] [address]Dr. Elba Raj EGFR-NON AF CONGOLESE 32 mL/min/1.73m2 Critically low >=60 [facility] Comment on above: Performed By: #### C MP, BNP ####[facility] Qufmueodmn108[address] [place], [place] [address]Dr. Elba Anthony Globulin (S) [Mass/Vol] 4.6 g/dL Normal [facility] Comment on above: Performed By: #### C MP, BNP ####[facility] Xkwaezguek9249[address] [place], [place] [address]Dr. Elba Anhtony Glucose [Mass/Vol] 113 mg/dL Critically high 74-106 [facility] Comment on above: Performed By: #### C MP, BNP ####[facility] Fxncdskttf211[address] [place], [place] [address]Dr. Elba Anthony Potassium [Moles/Vol] 4.3 mmol/L Normal 3.5-5.1 [facility] Comment on above: Performed By: #### C MP, BNP ####[facility] Tdnzrewjoz4627[address] [place], [place] [address]Dr. Elba Anthony Protein [Mass/Vol] 7.5 g/dL Normal 6.1-8.2 [facility] Comment on above: Performed By: #### C MP, BNP ####[facility] Phzvyqdgtc69[address] [place], [place] [address]Dr. Elba Anthony Sodium [Moles/Vol] 134 mmol/L Critically low 136-145 [facility] Comment on above: Performed By: #### C MP, BNP ####[facility] Uiielklehz9428[address] [place], [place] [address]Dr. Elba Anthony Urea nitrogen [Mass/Vol] 48.0 mg/dL Critically high 7.0-18 .0 [facility] Comment on above: Performed By: #### C MP, BNP ####[facility] Ywgjfbbmpe9645 [place] [address]Dr. Elba Anthony Urea nitrogen/Creatinine [Mass ratio] 23.3 mg/mg Normal [facility] Comment on above: Performed By: #### C MP, BNP ####[facility] Dcnirdpxfo79[address] [place] [address]Dr. Elba Anthony US ARLIN DOP LEG LTon 01-08-20 US ARLIN DOP LEG LT Normal [facility] XR CHEST 1 Von 01-07-2022 XR CHEST 1 V Normal [facility] CBC AUTO DIFFon 12-17-2021 BASO # 0.0 103/ul Normal 0.0-0.1 [facility] Comment on above: Performed By: #### C BC ####[facility] Vfpamhgzmk9[address] [place], [place] [address]Dr. Elba Anthony Basophils/100 WBC (Bld) 0.1 % Critically low 0.2-2.0 [facility] Comment on above: Performed By: #### C BC ####[facility] Trabxtbhhz[address] [place], [place] [address]DrLatoya Anthony EO # 0.1 103/ul Normal 0.0-0.7 [facility] Comment on above: Performed By: #### C BC ####[facility] Lypbdxrefu446[address] [place], [place] [address]Dr. Elba Anthony Eosinophils/100 WBC (Bld) 1.2 % Normal 0.9-7.0 [facility] Comment on above: Performed By: #### C BC ####[facility] Kewxkzzovv5[address] [place], [place] [address]DrLatoya Anthony Erythrocyte distribution wid th (RBC) [Ratio] 18.6 % Critically high 11.0-15.0 [facility] pital Comment on above: Performed By: #### C BC ####[facility] Naafxkirio7660[address] [place], [place] [address]Dr. Elba Anthony Hematocrit (Bld) [Volume fraction] 29.8 % Critically low 42.0-54.0 [facility] Comment on above: Performed By: #### C BC ####[facility] Ykzyomcgmm9076 [place] [address]DrLatoya Anthony Hemoglobin (Bld) [Mass/Vol] 9.0 g/dL Critically low 14.0 -18.0 [facility] Comment on above: Performed By: #### C BC ####[facility] Obeeuvmrpa4958 [place] [address]Dr. Elba Anthony IG # 0.05 10e3/ul Critically high 0.00-0.03 [facility] Comment on above: Performed By: #### C BC ####[facility] Veyzzpnhyr8803 [place] [address]DrLatoya Anthony IG % 0.6 % Critically high 0.0-0.5 [facility] Comment on above: Performed By: #### C BC ####[facility] Gxdifqzhpq0894 [place] [address]DrLatoya Anthony LYMPH # 0.4 103/ul Critically low 1.2-3.8 [facility] Comment on above: Performed By: #### C BC ####[facility] Hwmcejgeao88[address] [place] [address]DrLatoya Anthony Lymphocytes/100 WBC (Bld) 4.0 % Critically low 20.5-6 0.0 [facility] Comment on above: Performed By: #### C BC ####[facility] Boqjnodjcx5576 [place] [address]DrLatoya Anthony MANUAL DIFF REQ NO Normal [facility] Comment on above: Performed By: #### C BC ####[facility] Gstvjsglhu0402 [place] [address]DrLatoya Anthony MCH (RBC) [Entitic mass] 25.2 pg Critically low 25.9-34 .0 [facility] Comment on above: Performed By: #### C BC ####[facility] Uikmtjilyy6[address] [place], [place] [address]Dr. Elba Anthony MCHC (RBC) [Mass/Vol] 30.2 g/dL Normal 29.9-35.2 [facility] Comment on above: Performed By: #### C BC ####[facility] Emtwuciazv9217 [place] [address]Dr. Elba Anthony MCV (RBC) [Entitic vol] 83.5 fL Normal 80.0-94.0 [facility] Comment on above: Performed By: #### C BC ####[facility] Kqfpuuiqoc1601 [place] [address]Dr. Elba Anthony MONO # 0.9 103/ul Critically high 0.3-0.8 [facility] Comment on above: Performed By: #### C BC ####[facility] Qwddsapzbf6116 [place] [address]Dr. Elba Anthony Monocytes/100 WBC (Bld) 9.7 % Normal 1.7-12.0 [facility] Comment on above: Performed By: #### C BC ####[facility] Utxznemgfu7711 [place] [address]Dr. Elba Anthony NEUT # 7.6 103/ul Critically high 1.4-6.5 [facility] Comment on above: Performed By: #### C BC ####[facility] Feufodrwzf0380 [place] [address]Dr. Elba Anthony Neutrophils/100 WBC (Bld) 84.4 % Critically high 43.0- 75.0 [facility] Comment on above: Performed By: #### C BC ####[facility] Kpkqmtnoie4961 [place] [address]Dr. Elba Anthony Platelet mean volume (Bld) [ Entitic vol] 10.0 fL Normal 9.5-13.5 [facility] pital Comment on above: Performed By: #### C BC ####[facility] Fdtkhosony9704 [place] [address]Dr. Elba Raj PLT 154 103/ul Normal 150-450 [facility] ospital Comment on above: Performed By: #### C BC ####[facility] Mjgrevwksf0282 [place] [address]Dr. Elba Anthony RBC 3.57 106/ul Critically low 4.70-6.10 [facility] Comment on above: Performed By: #### C BC ####[facility] Meokltpknb3015 [place] [address]Dr. Elba Anthony WBC 9.0 103/ul Normal 4.0-11.0 [facility] Comment on above: Performed By: #### C BC ####[facility] Ygnaypbopz8412 [place] [address]Dr. Elba Anthony PROF 14(COMP METB)on 022 Albumin [Mass/Vol] 2.3 g/dL Critically low 3.4-5.0 [facility] Comment on above: Performed By: #### C MP ####[facility] Wqbaixnsde[address] [place], [place] [address]Dr. Elba Anthony Albumin/Globulin [Mass ratio] 0.6 {ratio} Normal [facility] Comment on above: Performed By: #### C MP ####[facility] Nkeypmwbvz7891 [place] [address]Dr. Elba Anthony ALP [Catalytic activity/Vol] 75 U/L Normal 46-116 [facility] Comment on above: Performed By: #### C MP ####[facility] Luomyrzdus2663 [place] [address]Dr. Elba Anthony ALT [Catalytic activity/Vol] 30 U/L Normal 16-63 [facility] Comment on above: Performed By: #### C MP ####[facility] Uuuqpfsxzo1997 [place] [address]Dr. Elba Anthony Anion gap [Moles/Vol] 11.6 mmol/L Normal [facility] Comment on above: Performed By: #### C MP ####[facility] Ktzetlqyzu2838 [place] [address]Dr. Elba Anthony AST [Catalytic activity/Vol] 26 U/L Normal 15-37 [facility] Comment on above: Performed By: #### C MP ####[facility] Gzekuqfszq5975 [place] [address]Dr. Elba Anthony Bilirubin [Mass/Vol] 0.9 mg/dL Normal 0.2-1.3 [facility] Comment on above: Performed By: #### C MP ####[facility] Okgdlthril0598 [place] [address]Dr. Elba Anthony Calcium [Mass/Vol] 8.1 mg/dL Critically low 8.5-10.1 [facility] Comment on above: Performed By: #### C MP ####[facility] Mtymghouyl9996 [place] [address]Dr. Elba Anthony Chloride [Moles/Vol] 101 mmol/L Normal 98-107 [facility] Comment on above: Performed By: #### C MP ####[facility] Eqtnvmxhry9196 [place] [address]Dr. Elba Anthony CO2 [Moles/Vol] 26.2 mmol/L Normal 22.0-30.0 [facility] Comment on above: Performed By: #### C MP ####[facility] Egvlyolhbt3165 [place] [address]Dr. Elba Anthony Creatinine [Mass/Vol] 2.26 mg/dL Critically high 0.66-1.25 [facility] Comment on above: Performed By: #### C MP ####[facility] Yngtvawpyp7407 [place] [address]Dr. Elba Anthony EGFR-AF CONGOLESE 35 mL/min/1.73m2 Critically low >=60 [facility] Comment on above: Performed By: #### C MP ####[facility] Wzqibcctwg8268 [place] [address]Dr. Elba Anthony EGFR-NON AF CONGOLESE 29 mL/min/1.73m2 Critically low >=60 [facility] Comment on above: Performed By: #### C MP ####[facility] [address]exizhr[address] [place], [place] [address]Dr. Elba Anthony Globulin (S) [Mass/Vol] 4.1 g/dL Normal [facility] Comment on above: Performed By: #### C MP ####[facility] Ytpqgjklos0464 [place] [address]Dr. Elba Anthony Glucose [Mass/Vol] 110 mg/dL Critically high 74-[address] [facility] Comment on above: Performed By: #### C MP ####[facility] Ijornwbhhh9816 [place], [place] [address]Rt. Elba Anthony Potassium [Moles/Vol] 3.8 mmol/L Normal 3.4-5.0 [facility] Comment on above: Performed By: #### C MP ####[facility] Ngpchsmtjx3625 [place] [address]Dr. Elba Anthony Protein [Mass/Vol] 6.4 g/dL Normal 6.1-8.2 [facility] Comment on above: Performed By: #### C MP ####[facility] Ydhixkzivv0385 [place] [address]Dr. Elba Anthony Sodium [Moles/Vol] 135 mmol/L Critically low 137-145 [facility] Comment on above: Performed By: #### C MP ####[facility] Bsffuniaeb5862 [place] [address]Dr. Elba Anthony Urea nitrogen [Mass/Vol] 49.0 mg/dL Critically high 7.0-18 .0 [facility] Comment on above: Performed By: #### C MP ####[facility] Tkfcvnuhqd4629 [place] [address]Dr. Elba Anthony Urea nitrogen/Creatinine [Mass ratio] 21.7 mg/mg Normal [facility] Comment on above: Performed By: #### C MP ####[facility] Mltdkhdtcg3761 [place] [address]Dr. Nereydasiobhan Anthony BLOOD CULTURE ID/SENSon 04- Aerobe ID + Suscept Final report Abnormal [facility] Comment on above: Performed By: #### C XPOSBL ####[facility] Lafnqqlbgc[address] [place], [place] [address]Dr. Nereydasiobhan Anthony Antimicrobial Susceptibility Comment Normal [facility] Comment on above: Result Comment: S = Susceptible; I = Intermediate; R = Resistant P = Positive; N = Negative MICS are expressed in micrograms per mL Antibiotic RSLT#1 RSLT#2 RSLT#3 RSLT#4Amikacin SCefepime SCeftazidime SCiprofloxacin SGentamicin SImipenem SLevofloxacin SMeropenem SPiperacillin STicarcillin STobramycin S Performed By: #### C XPOSBL ####[facility] Fuesguaaue[address] [place], [place] [address]Dr. Elba Anthony Result 1 Comment Abnormal [facility] Comment on above: Result Comment: Pseu domonas aeruginosaReceived aerobic bottle only. Performed By: #### C XPOSBL ####[facility] Uezrjutgmf[address] [place], [place] [address]Dr. Elba Anthony Result Comment: Pseu domonas aeruginosaReceived anaerobic bottle only. CBC AUTO DIFFon 12-16-2021 BASO # 0.0 103/ul Normal 0.0-0.1 [facility] Comment on above: Performed By: #### C BC ####[facility] Vgyphnrvui8[address] [place], [place] [address]Dr. Elba Anthony Basophils/100 WBC (Bld) 0.3 % Normal 0.2-2.0 [facility] Comment on above: Performed By: #### C BC ####[facility] Ftngcujruy[address] [place], [place] [address]Dr. Elba Anthony EO # 0.1 103/ul Normal 0.0-0.7 [facility] Comment on above: Performed By: #### C BC ####[facility] Oxthhrgceu320[address] [place], [place] [address]Dr. Elba Anthony Eosinophils/100 WBC (Bld) 1.7 % Normal 0.9-7.0 [facility] Comment on above: Performed By: #### C BC ####[facility] Zsnbhzabmd50[address] [place], [place] [address]Dr. Elba Anthony Erythrocyte distribution wid th (RBC) [Ratio] 18.8 % Critically high 11.0-15.0 [facility] Comment on above: Performed By: #### C BC ####[facility] Txtprnoskx5316 [place] [address]Dr. Elba Anthony Hematocrit (Bld) [Volume fraction] 28.8 % Critically low 42.0-54.0 [facility] Comment on above: Performed By: #### C BC ####[facility] Gimdxlsuvk0412 [place] [address]Dr. Elba Anthony Hemoglobin (Bld) [Mass/Vol] 8.6 g/dL Critically low 14.0 -18.0 [facility] Comment on above: Performed By: #### C BC ####[facility] Uizivovqxe[address] [place], [place] [address]Dr. Elba Anthony IG # 0.05 10e3/ul Critically high 0.00-0.03 [facility] Comment on above: Performed By: #### C BC ####[facility] Ilknfhvjwe13[address] [place], [place] [address]Dr. Nereydasiobhan Anthony IG % 0.7 % Critically high 0.0-0.5 [facility] Comment on above: Performed By: #### C BC ####[facility] Dckfcpwlhp[address] [place], [place] [address]Dr. Elba Anthony LYMPH # 0.4 103/ul Critically low 1.2-3.8 [facility] Comment on above: Performed By: #### C BC ####[facility] Qsbpulidro6137 [place] [address]Dr. Nereydasiobhan Anthony Lymphocytes/100 WBC (Bld) 5.4 % Critically low 20.5-6 0.0 [facility] Comment on above: Performed By: #### C BC ####[facility] Gnwodugkce2660 [place] [address]Dr. Nereydasiobhan Anthony MANUAL DIFF REQ NO Normal [facility] Comment on above: Performed By: #### C BC ####[facility] Lscetpslof[address] [place], [place] [address]Dr. Nereydasiobhan Anthony MCH (RBC) [Entitic mass] 25.0 pg Critically low 25.9-34 .0 [facility] Comment on above: Performed By: #### C BC ####[facility] Vdzuharnhk4028 [place] [address]Dr. Elba Raj MCHC (RBC) [Mass/Vol] 29.9 g/dL Normal 29.9-35.2 [facility] Comment on above: Performed By: #### C BC ####[facility] Ihingznzph8803 [place] [address]Dr. Elba Anthony MCV (RBC) [Entitic vol] 83.7 fL Normal 80.0-94.0 [facility] Comment on above: Performed By: #### C BC ####[facility] Fmcmeazqpx[address] [place], [place] [address]Dr. Elba Anthony MONO # 0.7 103/ul Normal 0.3-0.8 [facility] Comment on above: Performed By: #### C BC ####[facility] Mqoxesrhcb7[address] [place], [place] [address]Dr. Elba Anthony Monocytes/100 WBC (Bld) 10.2 % Normal 1.7-12.0 [facility] Comment on above: Performed By: #### C BC ####[facility] Rhfsnqrjjy69[address] [place], [place] [address]Dr. Elba Anthony NEUT # 5.9 103/ul Normal 1.4-6.5 [facility] Comment on above: Performed By: #### C BC ####[facility] Psimcpyhmz[address] [place], [place] [address]Dr. Elba Anthony Neutrophils/100 WBC (Bld) 81.7 % Critically high 43.0- 75.0 [facility] Comment on above: Performed By: #### C BC ####[facility] Ixrobphvqg146[address] [place], [place] [address]DrLatoya Anthony Platelet mean volume (Bld) [ Entitic vol] 10.8 fL Normal 9.5-13.5 [facility] pital Comment on above: Performed By: #### C BC ####[facility] Jboudutmnn[address] [place], [place] [address]Dr. Elba Anthony PLT 150 103/ul Normal 150-450 [facility] Comment on above: Performed By: #### C BC ####[facility] Jfhzzyrnbc4376 [place] [address]Dr. Elba Anthony RBC 3.44 106/ul Critically low 4.70-6.10 [facility] Comment on above: Performed By: #### C BC ####[facility] Snqigjopaj9303 [place] [address]Dr. Elba Anthony WBC 7.2 103/ul Normal 4.0-11.0 [facility] Comment on above: Performed By: #### C BC ####[facility] Wwlhtpobfb7095 [place] [address]DrLatoya Anthony PROF 14(COMP METB)on 022 Albumin [Mass/Vol] 2.3 g/dL Critically low 3.4-5.0 [facility] Comment on above: Performed By: #### C MP ####[facility] Lyilunzkac2534 [place] [address]DrLatoya Anthony Albumin/Globulin [Mass ratio] 0.6 {ratio} Normal [facility] Comment on above: Performed By: #### C MP ####[facility] Asikpinjbc0547 [place] [address]Dr. Elba Anthony ALP [Catalytic activity/Vol] 77 U/L Normal 46-116 [facility] Comment on above: Performed By: #### C MP ####[facility] Lmnkmutegm6597 [place] [address]Dr. Elba Anthony ALT [Catalytic activity/Vol] 26 U/L Normal 16-63 [facility] Comment on above: Performed By: #### C MP ####[facility] Qnnqjznlmo0627 [place] [address]DrLatoya Anthony Anion gap [Moles/Vol] 12.3 mmol/L Normal [facility] Comment on above: Performed By: #### C MP ####[facility] Rxevjpgqxx8886 [place] [address]Dr. Elba Anthony AST [Catalytic activity/Vol] 23 U/L Normal 15-37 [facility] Comment on above: Performed By: #### C MP ####[facility] Gcfgcaylwa3143 [place] [address]Dr. Elba Anthony Bilirubin [Mass/Vol] 0.8 mg/dL Normal 0.2-1.3 [facility] [facility] Comment on above: Performed By: #### C MP ####[facility] Ehcirhiswe[address] [place] [id number]. Elba Anthony Calcium [Mass/Vol] 8.0 mg/dL Critically low 8.5-10.1 [facility] Comment on above: Performed By: #### C MP ####[facility] Otdfzcmtxd[address] [place], [place] [address]Dr. Elba Anthony Chloride [Moles/Vol] 101 mmol/L Normal 98-107 [facility] Comment on above: Performed By: #### C MP ####[facility] Jgmazdtdqz7[address] [place], [place] [address]Dr. Elba Anthony CO2 [Moles/Vol] 25.8 mmol/L Normal 22.0-30.0 [facility] Comment on above: Performed By: #### C MP ####[facility] Csbfekkvhf97[address] [place], [place] [address]Dr. Elba Raj Creatinine [Mass/Vol] 2.72 mg/dL Critically high 0.66-1.25 [facility] Comment on above: Performed By: #### C MP ####[facility] Unixcpwmse3[address] [place], [place] [address]Dr. Elba Raj EGFR-AF CONGOLESE 28 mL/min/1.73m2 Critically low >=60 [facility] Comment on above: Performed By: #### C MP ####[facility] Celjyilmbo[address] [place], [place] [id number]. Elba Raj EGFR-NON AF CONGOLESE 23 mL/min/1.73m2 Critically low >=60 [facility] Comment on above: Performed By: #### C MP ####[facility] Toaqlhihvq[address] [place], [place] [address]Dr. Elba Raj Globulin (S) [Mass/Vol] 4.1 g/dL Normal [facility] Comment on above: Performed By: #### C MP ####[facility] I[address]juqw[address] [place] [address]Dr. Elba Anthony Glucose [Mass/Vol] 130 mg/dL Critically high 74-106 [facility] Comment on above: Performed By: #### C MP ####[facility] Njtjvuilxp[address] [place], [place] [address]Dr. Elba Anthony Potassium [Moles/Vol] 4.1 mmol/L Normal 3.4-5.0 [facility] Comment on above: Performed By: #### C MP ####[facility] Mgpizghepk9[address] [place], [place] [address]Dr. Elba Anthony Protein [Mass/Vol] 6.4 g/dL Normal 6.1-8.2 [facility] Comment on above: Performed By: #### C MP ####[facility] Evayqkzmuh04[address] [place], [place] [address]Dr. Elba Anthony Sodium [Moles/Vol] 135 mmol/L Critically low 137-145 [facility] Comment on above: Performed By: #### C MP ####[facility] Slwnqweerg5349[address] [place], [place] [address]Dr. Elba Anthony Urea nitrogen [Mass/Vol] 60.0 mg/dL Critically high 7.0-18 .0 [facility] Comment on above: Performed By: #### C MP ####[facility] Ryohziyfho7[address] [place], [place] [address]Dr. Elba Anthony Urea nitrogen/Creatinine [Mass ratio] 22.1 mg/mg Normal [facility] Comment on above: Performed By: #### C MP ####[facility] Vuctbyclmc[address] [place], [place] [address]Dr. Elba Anthony BNPon 12-15-2021 Natriuretic peptide B (Bld) [Mass/Vol] 97138.0 pg/mL Critically high <=900.0 [facility] Comment on above: Result Comment: Test Repeated. Critical Value Verified Performed By: #### C MP, BNP, CRP ####[facility] [address] [place] [address]Dr. Elba Anthony CBC AUTO DIFFon 12-15-2021 BASO # 0.0 103/ul Normal 0.0-0.1 [facility] ostal Comment on above: Performed By: #### C BC ####[facility] Ynzxhuottm[address] [place] [address]Dr. Elba Anthony Basophils/100 WBC (Bld) 0.2 % Normal 0.2-2.0 [facility] Comment on above: Performed By: #### C BC ####[facility] Uouikjyytf9[address] [place], [place] [address]Dr. Elba Anthony EO # 0.1 103/ul Normal 0.0-0.7 [facility] Comment on above: Performed By: #### C BC ####[facility] Wjyqskvegv34[address] [place], [place] [address]Dr. Elba Anthony Eosinophils/100 WBC (Bld) 1.3 % Normal 0.9-7.0 [facility] Comment on above: Performed By: #### C BC ####[facility] Ezflnyfdfb016[address] [place], [place] [address]Dr. Elba Anthony Erythrocyte distribution wid th (RBC) [Ratio] 19.0 % Critically high 11.0-15.0 [facility] Comment on above: Performed By: #### C BC ####[facility] Cpefzrdsix7197[address] [place], [place] [address]Dr. Elba Anthony Hematocrit (Bld) [Volume fraction] 28.7 % Critically low 42.0-54.0 [facility] Comment on above: Performed By: #### C BC ####[facility] Xkjbfhdcah107[address] [place], [place] [address]Dr. Elba Anthony Hemoglobin (Bld) [Mass/Vol] 8.7 g/dL Critically low 14.0 -18.0 [facility] Comment on above: Performed By: #### C BC ####[facility] Tsufhehlqn3280[address] [place], [place] [address]Dr. Nereydasiobhan Anthony IG # 0.04 10e3/ul Critically high 0.00-0.03 [facility] Comment on above: Performed By: #### C BC ####[facility] Utfezzgiou[address] [place] [address]Dr. Elba Anthony IG % 0.5 % Normal 0.0-0.5 [facility] Comment on above: Performed By: #### C BC ####[facility] Thfeyxobma[address] [place] [address]DrLatoya Anthony LYMPH # 0.4 103/ul Critically low 1.2-3.8 [facility] Comment on above: Performed By: #### C BC ####[facility] Ajxwhnzmfe[address] [place] [address]Dr. Elba Anthony Lymphocytes/100 WBC (Bld) 4.2 % Critically low 20.5-6 0.0 [facility] Comment on above: Performed By: #### C BC ####[facility] Hxswvidzob23[address] [place], [place] [address]Dr. Elba Anthony MANUAL DIFF REQ NO Normal [facility] Comment on above: Performed By: #### C BC ####[facility] Zf[address]mqkmuh[address] [place] [address]Dr. Elba Anthony MCH (RBC) [Entitic mass] 25.5 pg Critically low 25.9-34 .0 [facility] Comment on above: Performed By: #### C BC ####[facility] Vuqibiiqew[address] [place] [address]Dr. Elba Anthony MCHC (RBC) [Mass/Vol] 30.3 g/dL Normal 29.9-35.2 [facility] Comment on above: Performed By: #### C BC ####[facility] Jrcccxbdpp8[address] [place] [address]Dr. Elba Anthony MCV (RBC) [Entitic vol] 84.2 fL Normal 80.0-94.0 [facility] Comment on above: Performed By: #### C BC ####[facility] Qgawzajbcq[address] [place] [address]DrLatoya Anthony MONO # 0.6 103/ul Normal 0.3-0.8 [facility]ital Comment on above: Performed By: #### C BC ####[facility] Wzwlxrtfgi[address] [place] [address]Dr. Elba Anthony Monocytes/100 WBC (Bld) 7.5 % Normal 1.7-12.0 [facility] Comment on above: Performed By: #### C BC ####[facility] Volhbyyiud[address] [place], [place] [address]Dr. Elba Anthony NEUT # 7.2 103/ul Critically high 1.4-6.5 [facility] Comment on above: Performed By: #### C BC ####[facility] Hxikkaciuf962[address] [place], [place] [address]Dr. Elba Anthony Neutrophils/100 WBC (Bld) 86.3 % Critically high 43.0- 75.0 [facility] Comment on above: Performed By: #### C BC ####[facility] Adbbzdrbox226[address] [place], [place] [address]Dr. Elba Anthony Platelet mean volume (Bld) [ Entitic vol] 10.7 fL Normal 9.5-13.5 [facility] pital Comment on above: Performed By: #### C BC ####[facility] Oaqrohthrm0[address] [place], [place] [address]Dr. Elba Anthony PLT 132 103/ul Critically low 150-450 [facility] Comment on above: Performed By: #### C BC ####[facility] Kryrodsrkf224[address] [place], [place] [address]Dr. Elba Anthony RBC 3.41 106/ul Critically low 4.70-6.10 [facility] Comment on above: Performed By: #### C BC ####[facility] Ygqyrxbpay00[address] [place], [place] [address]Dr. Elba Anthony WBC 8.4 103/ul Normal 4.0-11.0 [facility] Comment on above: Performed By: #### C BC ####[facility] Qviaijkcfh[address] [place], [place] [address]DrLatoya Elba Raj CRPon 12-15-2021 CRP [Mass/Vol] mg/L Critically high <=1.0 [facility] Comment on above: Performed By: #### C MP, BNP, CRP ####[facility] Clw[address]rckv[address] [place] [address]Dr. Elba Anthony PROF 14(COMP METB)on 022 Albumin [Mass/Vol] 2.4 g/dL Critically low 3.4-5.0 [facility] Comment on above: Performed By: #### C MP, BNP, CRP ####[facility] D[address]bbwaosx[address] [place] [address]Dr. Elba Anthony Albumin/Globulin [Mass ratio] 0.6 {ratio} Normal [facility] Comment on above: Performed By: #### C MP, BNP, CRP ####[facility] Hlvrptkvyu[address] [place] [address]Dr. Elba Anthony ALP [Catalytic activity/Vol] 75 U/L Normal 46-116 [facility] Comment on above: Performed By: #### C MP, BNP, CRP ####[facility] Clswrmcflz[address] [place] [address]Dr. Elba Anthony ALT [Catalytic activity/Vol] 22 U/L Normal 16-63 [facility] Comment on above: Performed By: #### C MP, BNP, CRP ####[facility] Uvjtgbkqea[address] [place] [address]Dr. Elba Anthony Anion gap [Moles/Vol] 13.8 mmol/L Normal [facility] Comment on above: Performed By: #### C MP, BNP, CRP ####[facility] Zrbgilgilz[address] [place] [address]Dr. Elba Anthony AST [Catalytic activity/Vol] 17 U/L Normal 15-37 [facility] Comment on above: Performed By: #### C MP, BNP, CRP ####[facility] Dxdmhapdis[address] [place] [address]Dr. Elba Anthony Bilirubin [Mass/Vol] 0.8 mg/dL Normal 0.2-1.3 [facility] Comment on above: Performed By: #### C MP, BNP, CRP ####[facility] Gyucqhzsgt[address] [place] [address]Dr. Elba Anthony Calcium [Mass/Vol] 7.7 mg/dL Critically low 8.5-10.1 [facility] Comment on above: Performed By: #### C MP, BNP, CRP ####[facility] Dzouteuajs[address] [place] [address]Dr. Elba Anthony Chloride [Moles/Vol] 98 mmol/L Normal 98-107 [facility] Comment on above: Performed By: #### C MP, BNP, CRP ####[facility] Leiijntebq347[address] [place], [place] [address]Dr. Elba Anthony CO2 [Moles/Vol] 24.5 mmol/L Normal 22.0-30.0 [facility] Comment on above: Performed By: #### C MP, BNP, CRP ####[facility] Fowvibddjl464[address] [place], [place] [address]Dr. Nereydasiobhan Anthony Creatinine [Mass/Vol] 3.10 mg/dL Critically high 0.66-1.25 [facility] Comment on above: Performed By: #### C MP, BNP, CRP ####[facility] Plpptbxgkp[address] [place], [place] [address]Dr. Elba Raj EGFR-AF CONGOLESE 24 mL/min/1.73m2 Critically low >=60 [facility] Comment on above: Performed By: #### C MP, BNP, CRP ####[facility] Mmbnyabuff[address] [place], [place] [address]Dr. Elba Raj EGFR-NON AF CONGOLESE 20 mL/min/1.73m2 Critically low >=60 [facility] Comment on above: Performed By: #### C MP, BNP, CRP ####[facility] Kbwwxaaglr7[address] [place], [place] [address]Dr. Elba Anthony Globulin (S) [Mass/Vol] 4.1 g/dL Normal [facility] Comment on above: Performed By: #### C MP, BNP, CRP ####[facility] Crcphhmlxe002[address] [place], [place] [address]Dr. Elba Anthony Glucose [Mass/Vol] 141 mg/dL Critically high 74-[address] [facility] Comment on above: Performed By: #### C MP, BNP, CRP ####[facility] Jny[address]qchrxw[address] [place] [address]Dr. Nereydasiobhan Anthony Potassium [Moles/Vol] 4.3 mmol/L Normal 3.4-5.0 [facility] Comment on above: Performed By: #### C MP, BNP, CRP ####[facility] Qiovyhszez[address] [place] [address]Dr. Elba Anthony Protein [Mass/Vol] 6.5 g/dL Normal 6.1-8.2 [facility] Comment on above: Performed By: #### C MP, BNP, CRP ####[facility] Lozwnnydlg[address] [place] [address]Dr. Elba Anthony Sodium [Moles/Vol] 132 mmol/L Critically low 137-145 [facility] Comment on above: Performed By: #### C MP, BNP, CRP ####[facility] Juzjidbrrz0127[address] [place], [place] [address]Dr. Elba Anthony Urea nitrogen [Mass/Vol] 62.0 mg/dL Critically high 7.0-18 .0 [facility] Comment on above: Performed By: #### C MP, BNP, CRP ####[facility] Zkahclkdcr[address] [place] [address]Dr. Elba Anthony Urea nitrogen/Creatinine [Mass ratio] 20.0 mg/mg Normal [facility] Comment on above: Performed By: #### C MP, BNP, CRP ####[facility] Znxvgissbd[address] [place] [address]Dr. Elba Anthony UA RANDOM W/MICROSCOPICon BACTERIA TRACE Abnormal NONE SEEN [facility] Comment on above: Performed By: #### U AMIC ####[facility] Yscuxmhssz[address] [place] [address]Dr. Elba Anthony Bilirubin Ql (U) Negative Normal NEGATIVE [facility] Comment on above: Performed By: #### U AMIC ####[facility] Utoankzlma[address] [place] [address]Dr. Nereydasiobhan Anthony CAST NONE SEEN Normal NONE SEEN [facility] Comment on above: Performed By: #### U AMIC ####[facility] Tzvkjjezga[address] [place], [place] [address]Dr. Elba Anthony Clarity (U) CLEAR Normal CLEAR [facility] Comment on above: Performed By: #### U AMIC ####[facility] Lhppkagpsb7207[address] [place], [place] [address]Dr. Elba Anthony Color (U) LT. YELLOW Normal YELLOW [facility] ostal Comment on above: Performed By: #### U AMIC ####[facility] Alwohnzalm01[address] [place], [place] [address]Dr. Elba Anthony Crystals LM Nom (Urine sed) SEEN Abnormal NONE SEE N [facility] Comment on above: Performed By: #### U AMIC ####[facility] Yzmbwnwirg824[address] [place], [place] [address]Dr. Elba Anthony Epithelial cells LM Ql (Urine sed) RARE Normal N ONE SEEN /RARE [facility] Comment on above: Performed By: #### U AMIC ####[facility] Xkwgyevtab2190[address] [place], [place] [address]Dr. Elba Anthony Glucose Ql (U) Negative Normal NEGATIVE [facility] Comment on above: Performed By: #### U AMIC ####[facility] Ifhdsstpxe199[address] [place], [place] [address]Dr. Elba Anthony Hemoglobin Ql (U) MODERATE Abnormal NEGATIVE [facility] Comment on above: Performed By: #### U AMIC ####[facility] Rixfmnxoam6023[address] [place], [place] [address]Dr. Elba Anthony Ketones Ql (U) Negative Normal NEGATIVE [facility] Comment on above: Performed By: #### U AMIC ####[facility] Xbclujxhho1140[address] [place], [place] [address]Dr. Elba Anthony LEUKOCYTES Negative Normal NEGATIVE [facility] Comment on above: Performed By: #### U AMIC ####[facility] Rtmbogombb4744[address] [place], [place] [address]Dr. Nereydasiobhan Anthony MUCOUS NONE SEEN Normal NONE SEEN [facility] Comment on above: Performed By: #### U AMIC ####[facility] Juitydbjfl7964[address] [place], [place] [address]Dr. Elba Anthony Nitrite Ql (U) Negative Normal NEGATIVE [facility] Comment on above: Performed By: #### U AMIC ####[facility] Vnkecwclfe[address] [place], [place] [address]Dr. Elba Anthony pH (U) 5.5 [pH] Normal 5-9 [facility] Comment on above: Performed By: #### U AMIC ####[facility] Lsusdjcblr844[address] [place], [place] [address]Dr. Elba Anthony RBC 50-75 Abnormal 0-2 [facility] Comment on above: Performed By: #### U AMIC ####[facility] Ganyzmniic8[address] [place], [place] [address]Dr. Elba Anthony SPEC GRAVITY 1.015 Normal 1.005-<=1.025 [facility] Comment on above: Performed By: #### U AMIC ####[facility] Iknslqetmj609[address] [place], [place] [address]Dr. Elba Anthony UA PROTEIN Negative Normal NEGATIVE/ TRACE [facility] Comment on above: Performed By: #### U AMIC ####[facility] Yzsvacpiln[address] [place], [place] [address]Dr. Elba Anthony URIC ACID CRYSTALS FEW Normal [facility] Comment on above: Performed By: #### U AMIC ####[facility] Wmdhlpxwdj[address] [place], [place] [address]Dr. Elba Anthony Urobilinogen Qn (U) 0.2 {Caden'U}/dL Normal 0.2 - 1. 0 [facility] Comment on above: Performed By: #### U AMIC ####[facility] Thcpjkscbm6[address] [place], [place] [address]Dr. Elba Anthnoy WBC 0-2 Abnormal NONE SEEN [facility] Comment on above: Performed By: #### U AMIC ####[facility] Fauwkvthph[address] [place], [place] [address]Dr. Elba Anthony BNPon 12-14-2021 Natriuretic peptide B (Bld) [Mass/Vol] 09782.0 pg/mL Critically high <=900.0 [facility] spital Comment on above: Result Comment: test repeated Performed By: #### C RP, CMP, BNP ####[facility] Cqqqxbvers[address] [place], [place] [address]Dr. Elba Anthony CBC AUTO DIFFon 12-14-2021 BASO # 0.0 103/ul Normal 0.0-0.1 [facility] Comment on above: Performed By: #### C BC ####[facility] Gaxprgyout07[address] [place], [place] [address]Dr. Elba Anthony Basophils/100 WBC (Bld) 0.1 % Critically low 0.2-2.0 [facility] Comment on above: Performed By: #### C BC ####[facility] Suokorblam[address] [place], [place] [address]Dr. Elba Anthony EO # 0.1 103/ul Normal 0.0-0.7 [facility] Comment on above: Performed By: #### C BC ####[facility] Vmsnvsvgnw94[address] [place], [place] [address]Dr. Elba Anthony Eosinophils/100 WBC (Bld) 1.1 % Normal 0.9-7.0 [facility] Comment on above: Performed By: #### C BC ####[facility] Cuuocvsiio294[address] [place], [place] [address]Dr. Elba Anthony Erythrocyte distribution wid th (RBC) [Ratio] 18.7 % Critically high 11.0-15.0 [facility] pital Comment on above: Performed By: #### C BC ####[facility] Fpkaxdtgfa[address] [place], [place] [address]Dr. Elba Anthony Hematocrit (Bld) [Volume fraction] 28.9 % Critically low 42.0-54.0 [facility] pital Comment on above: Performed By: #### C BC ####[facility] F[address]vwylslh25[address] [place] [address]Dr. Elba Anthony Hemoglobin (Bld) [Mass/Vol] 8.7 g/dL Critically low 14.0 -18.0 [facility] Comment on above: Performed By: #### C BC ####[facility] Qbyixergyv4045 [place] [address]Dr. Elba Anthony IG # 0.04 10e3/ul Critically high 0.00-0.03 [facility] Comment on above: Performed By: #### C BC ####[facility] Duttxwenbm0837 [place] [address]Dr. Nereydasiobhan Anthony IG % 0.4 % Normal 0.0-0.5 [facility] Comment on above: Performed By: #### C BC ####[facility] Wpycxyluyv[address]69[address] [place], [place] [address]Dr. Elba Anthony LYMPH # 0.4 103/ul Critically low 1.2-3.8 [facility] Comment on above: Performed By: #### C BC ####[facility] Skcuirxwgu34[address] [place] [address]Dr. Nereydasiobhan Anthony Lymphocytes/100 WBC (Bld) 4.1 % Critically low 20.5-6 0.0 [facility] Comment on above: Result Comment: dif. not rqd. same as 12/12/21 Performed By: #### C BC ####[facility] Gtakzpzpck[address] [place] [address]Dr. Elba Anthony MANUAL DIFF REQ NO Normal [facility] Comment on above: Performed By: #### C BC ####[facility] Iydaibopxu8[address] [place] [address]Dr. Elba Anthony MCH (RBC) [Entitic mass] 25.3 pg Critically low 25.9-34 .0 [facility] Comment on above: Performed By: #### C BC ####[facility] Yjbqmmblku[address] [place], [place] [address]Dr. Elba Anthony MCHC (RBC) [Mass/Vol] 30.1 g/dL Normal 29.9-35.2 [facility] Comment on above: Performed By: #### C BC ####[facility] Vezfhcrtyz5[address] [place] [address]DrLatoya Elba Raj MCV (RBC) [Entitic vol] 84.0 fL Normal 80.0-94.0 [facility] Comment on above: Performed By: #### C BC ####[facility] Drsofeuscx5[address] [place] [address]DrLatoya Dawnsiobhan Raj MONO # 0.9 103/ul Critically high 0.3-0.8 [facility] Comment on above: Performed By: #### C BC ####[facility] Tpveqcwddq5[address] [place] [address]Dr. Elba Anthony Monocytes/100 WBC (Bld) 9.3 % Normal 1.7-12.0 [facility] Comment on above: Performed By: #### C BC ####[facility] Ingmmpaodk02[address] [place], [place] [address]Dr. Nereydasiobhan Anthony NEUT # 7.8 103/ul Critically high 1.4-6.5 [facility] Comment on above: Performed By: #### C BC ####[facility] Vfbjsjumsc[address] [place], [place] [address]Dr. Elba Anthony Neutrophils/100 WBC (Bld) 85.0 % Critically high 43.0- 75.0 [facility] Comment on above: Performed By: #### C BC ####[facility] Uikytnkiyh9[address] [place], [place] [address]Dr. Elba Anthony Platelet mean volume (Bld) [ Entitic vol] 11.0 fL Normal 9.5-13.5 [facility] Comment on above: Performed By: #### C BC ####[facility] [address]zneu[address] [place], [place] [id number]. Elba Anthony PLT 117 103/ul Critically low 150-450 [facility] Comment on above: Performed By: #### C BC ####[facility] Xxzwpeghqt[address] [place], [place] [address]DrLatoya Anthony RBC 3.44 106/ul Critically low 4.70-6.10 [facility] Comment on above: Performed By: #### C BC ####[facility] Huwktxvapi[address] [place] [address]Dr. Elba Anthony WBC 9.2 103/ul Normal 4.0-11.0 [facility] Comment on above: Performed By: #### C BC ####[facility] Parvcznnbj[address] [place] [address]Dr. Elba Anthony CRPon 12-14-2021 CRP [Mass/Vol] mg/L Critically high <=1.0 [facility] Comment on above: Performed By: #### C RP, CMP, BNP ####[facility] Wmqlmiivpi[address] [place], [place] [address]Dr. Elba Anthony PROF 14(COMP METB)on 022 Albumin [Mass/Vol] 2.5 g/dL Critically low 3.4-5.0 [facility] Comment on above: Performed By: #### C RP, CMP, BNP ####[facility] Ahrprisjzb[address] [place] [address]Dr. Elba Anthony Albumin/Globulin [Mass ratio] 0.6 {ratio} Normal [facility] Comment on above: Performed By: #### C RP, CMP, BNP ####[facility] Sxbbiscntt[address] [place] [address]Dr. Elba Anthony ALP [Catalytic activity/Vol] 76 U/L Normal 46-116 [facility] Comment on above: Performed By: #### C RP, CMP, BNP ####[facility] Snilppcwzd[address] [place] [address]Dr. Elba Anthony ALT [Catalytic activity/Vol] 17 U/L Normal 16-63 [facility] Comment on above: Performed By: #### C RP, CMP, BNP ####[facility] Wbqmigavfk[address] [place] [address]Dr. Elba Anthony Anion gap [Moles/Vol] 13.3 mmol/L Normal [facility] Comment on above: Performed By: #### C RP, CMP, BNP ####[facility] Bxhmnipcrr[address] [place] [address]Dr. Elba Anthony AST [Catalytic activity/Vol] 22 U/L Normal 15-37 [facility] Comment on above: Performed By: #### C RP, CMP, BNP ####[facility] Glemkgfzvs[address] [place] [address]Dr. Elba Anthony Bilirubin [Mass/Vol] 1.0 mg/dL Normal 0.2-1.3 [facility] Comment on above: Performed By: #### C RP, CMP, BNP ####[facility] Vgwolifcjx[address] [place] [address]Dr. Elba Anthony Calcium [Mass/Vol] 8.1 mg/dL Critically low 8.5-10.1 [facility] Comment on above: Performed By: #### C RP, CMP, BNP ####[facility] Ifhbbgfksl[address] [place], [place] [address]Dr. Elba Anthony Chloride [Moles/Vol] 97 mmol/L Critically low 98-107 [facility] Comment on above: Performed By: #### C RP, CMP, BNP ####[facility] Ulnwggcf[address] [place], [place] [address]Dr. Elba Anthony CO2 [Moles/Vol] 25.0 mmol/L Normal 22.0-30.0 [facility] Comment on above: Performed By: #### C RP, CMP, BNP ####[facility] Rmpydyrwud[address] [place], [place] [address]Dr. Elba Anthony Creatinine [Mass/Vol] 2.85 mg/dL Critically high 0.66-1.25 [facility] Comment on above: Performed By: #### C RP, CMP, BNP ####[facility] Sdmvsuvcya[address] [place] [address]Dr. Elba Anthony EGFR-AF CONGOLESE 27 mL/min/1.73m2 Critically low >=60 [facility] Comment on above: Performed By: #### C RP, CMP, BNP ####[facility] Prnrjajxwb[address] [place], [place] [address]Dr. Elba Anthony EGFR-NON AF CONGOLESE 22 mL/min/1.73m2 Critically low >=60 [facility] Comment on above: Performed By: #### C RP, CMP, BNP ####[facility] Vwksvvsvlj[address] [place] [address]Dr. Elba Anthony Globulin (S) [Mass/Vol] 3.9 g/dL Normal [facility] Comment on above: Performed By: #### C RP, CMP, BNP ####[facility] Yfqhmfunfx5[address] [place] [address]Dr. Elba Anthony Glucose [Mass/Vol] 123 mg/dL Critically high 74-106 [facility] Comment on above: Performed By: #### C RP, CMP, BNP ####[facility] Hmzadbheob[address] [place] [address]Dr. Elba Anthony Potassium [Moles/Vol] 4.3 mmol/L Normal 3.4-5.0 [facility] Comment on above: Performed By: #### C RP, CMP, BNP ####[facility] Cslhnuuerp[address] [place] [address]Dr. Elba Anthony Protein [Mass/Vol] 6.4 g/dL Normal 6.1-8.2 [facility] Comment on above: Performed By: #### C RP, CMP, BNP ####[facility] Ooeheglcyi[address] [place] [address]Dr. Elba Anthony Sodium [Moles/Vol] 131 mmol/L Critically low 137-145 [facility] Comment on above: Performed By: #### C RP, CMP, BNP ####[facility] Qtwtfgxhsl7[address] [place] [address]Dr. Elba Anthony Urea nitrogen [Mass/Vol] 57.0 mg/dL Critically high 7.0-18 .0 [facility] Comment on above: Performed By: #### C RP, CMP, BNP ####[facility] Pqvhdwbwtu29[address] [place] [address]Dr. Elba Anthony Urea nitrogen/Creatinine [Mass ratio] 20.0 mg/mg Normal [facility] Comment on above: Performed By: #### C RP, CMP, BNP ####[facility] Ggqiopobxm7[address] [place] [address]Dr. Elba Anthony XR CHEST 1 Von 12-14-2021 XR CHEST 1 V Normal [facility] XR CHEST 1 V Normal [facility] BNPon 12-13-2021 Natriuretic peptide B (Bld) [Mass/Vol] 19474.0 pg/mL Critically high <=900.0 [facility] spital Comment on above: Performed By: #### B DIRECTOR OF SOCIAL WORK ####[facility] Pmzrfsktrd[address] [place], [place] [address]Dr. Nereydasiobhan Anthony CBC AUTO DIFFon 12-13-2021 BASO # 0.0 103/ul Normal 0.0-0.1 [facility] Comment on above: Performed By: #### C BC ####[facility] [address]jfqjvngvx[address] [place], [place] [address]Dr. Elba Anthony Basophils/100 WBC (Bld) 0.1 % Critically low 0.2-2.0 [facility] Comment on above: Performed By: #### C BC ####[facility] Mybtmwjafz[address] [place], [place] [address]Dr. Elba Anthony EO # 0.0 103/ul Normal 0.0-0.7 [facility] Comment on above: Performed By: #### C BC ####[facility] Noztzuwmss[address] [place], [place] [address]Dr. Elba Anthony Eosinophils/100 WBC (Bld) 0.2 % Critically low 0.9-7. 0 [facility] Comment on above: Performed By: #### C BC ####[facility] Jtozmpkfvd[address] [place], [place] [address]Dr. Elba Anthony Erythrocyte distribution wid th (RBC) [Ratio] 19.0 % Critically high 11.0-15.0 [facility] pital Comment on above: Performed By: #### C BC ####[facility] Bzkkbvzmxy[address] [place], [place] [address]Dr. Elba Anthony Hematocrit (Bld) [Volume fraction] 31.8 % Critically low 42.0-54.0 [facility] pital Comment on above: Performed By: #### C BC ####[facility] Qnjvodlfhn36[address] [place] [address]Dr. Elba Anthony Hemoglobin (Bld) [Mass/Vol] 9.5 g/dL Critically low 14.0 -18.0 [facility] Comment on above: Performed By: #### C BC ####[facility] Ppktmlbcgy78[address] [place] [address]Dr. Elba Anthony IG # 0.05 10e3/ul Critically high 0.00-0.03 [facility] Comment on above: Performed By: #### C BC ####[facility] Rttjkzuhhy[address] [place] [address]Dr. Elba Anthony IG % 0.4 % Normal 0.0-0.5 [facility] Comment on above: Performed By: #### C BC ####[facility] Nlkhqqbmmk6[address] [place] [address]Dr. Elba Anthony LYMPH # 0.3 103/ul Critically low 1.2-3.8 [facility] Comment on above: Performed By: #### C BC ####[facility] Lujdfzrfha69[address] [place] [address]Dr. Elba Anthony Lymphocytes/100 WBC (Bld) 2.3 % Critically low 20.5-6 0.0 [facility] Comment on above: Result Comment: dif. not rqd. same as 12/12/21 Performed By: #### C BC ####[facility] Uksrxxnezq5[address] [place] [address]Dr. Elba Anthony MANUAL DIFF REQ NO Normal [facility] Comment on above: Performed By: #### C BC ####[facility] Sdlamisrwg[address] [place] [address]Dr. Elba Anthony MCH (RBC) [Entitic mass] 25.3 pg Critically low 25.9-34 .0 [facility] Comment on above: Performed By: #### C BC ####[facility] Ebtachjdtj[address] [place] [address]Dr. Elba Anthony MCHC (RBC) [Mass/Vol] 29.9 g/dL Normal 29.9-35.2 [facility] Comment on above: Performed By: #### C BC ####[facility] Zqpgrxdgkh[address] [place], [place] [address]DrLatoya Anthony MCV (RBC) [Entitic vol] 84.8 fL Normal 80.0-94.0 [facility] Comment on above: Performed By: #### C BC ####[facility] Xtrxfcvgta84[address] [place], [place] [address]DrLatoya Anthony MONO # 0.8 103/ul Normal 0.3-0.8 [facility] Comment on above: Performed By: #### C BC ####[facility] Yuxlrosuyt[address] [place], [place] [address]DrLatoya Anthony Monocytes/100 WBC (Bld) 6.7 % Normal 1.7-12.0 [facility] Comment on above: Performed By: #### C BC ####[facility] Ewddhskivz[address] [place], [place] [address]DrLatoya Anthony NEUT # 11.0 103/ul Critically high 1.4-6.5 [facility] Comment on above: Performed By: #### C BC ####[facility] Utxtavtbwi95[address] [place], [place] [address]DrLatoya Anthony Neutrophils/100 WBC (Bld) 90.3 % Critically high 43.0- 75.0 [facility] Comment on above: Performed By: #### C BC ####[facility] Jaebgcitby50[address] [place], [place] [address]DrLatoya Anthony Platelet mean volume (Bld) [ Entitic vol] 10.8 fL Normal 9.5-13.5 [facility] Comment on above: Performed By: #### C BC ####[facility] Rrwsmqodob[address] [place], [place] [address]DrLatoya Anthony PLT 130 103/ul Critically low 150-450 [facility] Comment on above: Performed By: #### C BC ####[facility] [address] [place], [place] [address]DrLatoya Dawnsiobhan Raj RBC 3.75 106/ul Critically low 4.70-6.10 [facility] Comment on above: Performed By: #### C BC ####[facility] Fwfdckiapv6087 [place] [address]Dr. Elba Anthony WBC 12.2 103/ul Critically high 4.0-11.0 [facility] Comment on above: Performed By: #### C BC ####[facility] Obvlfeuqex1357 [place] [address]Dr. Elba Anthony CRPon 12-13-2021 CRP [Mass/Vol] mg/L Critically high <=1.0 [facility] Comment on above: Performed By: #### C MP, CRP ####[facility] Othejosxph30[address] [place] [address]Dr. Elba Anthony ECHO LIMITED STUDYon ECHO LIMITED STUDY Normal [facility] PROF 14(COMP METB)on 022 Albumin [Mass/Vol] 2.9 g/dL Critically low 3.4-5.0 [facility] Comment on above: Performed By: #### C MP, CRP ####[facility] Bjeamdasqk[address] [place] [address]Dr. Elba Anthony Albumin/Globulin [Mass ratio] 0.7 {ratio} Normal [facility] Comment on above: Performed By: #### C MP, CRP ####[facility] Agpmpskxke0687 [place] [address]Dr. Elba Anthony ALP [Catalytic activity/Vol] 88 U/L Normal 46-116 [facility] Comment on above: Performed By: #### C MP, CRP ####[facility] Pnslxmugsm7071 [place] [address]Dr. Elba Anthony ALT [Catalytic activity/Vol] 15 U/L Critically low 16- 63 [facility] Comment on above: Performed By: #### C MP, CRP ####[facility] Wetnleovqp4726 [place] [address]Dr. Elba Anthony Anion gap [Moles/Vol] 15.1 mmol/L Normal [facility] Comment on above: Performed By: #### C MP, CRP ####[facility] Xqpoyickxj2451 [place] [address]Dr. Elba Anthony AST [Catalytic activity/Vol] 14 U/L Critically low 15- 37 [facility] Comment on above: Performed By: #### C MP, CRP ####[facility] Tumjwwbuzb[address] [place] [address]Dr. Elba Raj Bilirubin [Mass/Vol] 1.5 mg/dL Critically high 0.2-1.3 [facility] Comment on above: Performed By: #### C MP, CRP ####[facility] Jjiwflxyfn9278 [place] [address]Dr. Elba Anthony Calcium [Mass/Vol] 8.6 mg/dL Normal 8.5-10.1 [facility] Comment on above: Performed By: #### C MP, CRP ####[facility] Wixfnhdaxy505[address] [place], [place] [address]Dr. Elba Anthony Chloride [Moles/Vol] 99 mmol/L Normal 98-107 [facility] Comment on above: Performed By: #### C MP, CRP ####[facility] Nqfbrdothl[address] [place], [place] [address]Dr. Elba Anthony CO2 [Moles/Vol] 24.3 mmol/L Normal 22.0-30.0 [facility] Comment on above: Performed By: #### C MP, CRP ####[facility] Ljicffxqpv[address] [place], [place] [address]Dr. Elba Raj Creatinine [Mass/Vol] 2.52 mg/dL Critically high 0.66-1.25 [facility] Comment on above: Performed By: #### C MP, CRP ####[facility] Kdqbhklvfq26[address] [place], [place] [address]Dr. Nereydasiobhan Raj EGFR-AF CONGOLESE 31 mL/min/1.73m2 Critically low >=60 [facility] Comment on above: Performed By: #### C MP, CRP ####[facility] Wmgeiusiqd14[address] [place], [place] [address]Dr. Elba Anthony EGFR-NON AF CONGOLESE 25 mL/min/1.73m2 Critically low >=60 [facility] Comment on above: Performed By: #### C MP, CRP ####[facility] Ncxzenpiaj6307 [place] [address]Dr. Elba Anthony Globulin (S) [Mass/Vol] 3.9 g/dL Normal [facility] Comment on above: Performed By: #### C MP, CRP ####[facility] Sunbhcgyvo0533[address] [place], [place] [address]Dr. Elba Anthony Glucose [Mass/Vol] 133 mg/dL Critically high 74-106 [facility] Comment on above: Performed By: #### C MP, CRP ####[facility] Ncwjbuumgs917[address] [place], [place] [address]Dr. Elba Anthony Potassium [Moles/Vol] 4.4 mmol/L Normal 3.4-5.0 [facility] Comment on above: Performed By: #### C MP, CRP ####[facility] Fblwbxwcho86[address] [place], [place] [address]Dr. Elba Anthony Protein [Mass/Vol] 6.8 g/dL Normal 6.1-8.2 [facility] Comment on above: Performed By: #### C MP, CRP ####[facility] Acgywngasi005[address] [place], [place] [address]Dr. Elba Anthony Sodium [Moles/Vol] 134 mmol/L Critically low 137-145 [facility] Comment on above: Performed By: #### C MP, CRP ####[facility] Nookleqkzm420[address] [place], [place] [address]Dr. Elba Anthony Urea nitrogen [Mass/Vol] 47.0 mg/dL Critically high 7.0-18 .0 [facility] Comment on above: Performed By: #### C MP, CRP ####[facility] Utdduhhlhm106[address] [place], [place] [address]Dr. Elba Anthony Urea nitrogen/Creatinine [Mass ratio] 18.7 mg/mg Normal [facility] Comment on above: Performed By: #### C MP, CRP ####[facility] Ndyzleobvi0959 [place] [address]Dr. Elba Anthony T3, TOTAL (TRIIODOTHYRONINE) on 12-13-2021 T3, TOTAL 66 ng/dL Critically low 71-180 [facility] Comment on above: Performed By: #### T 3TOTAL ####[facility] Mtnioxizhy6986 [place], [place] [address]Sb. Elba Anthony US KIDNEYS BLADDERon 022 US KIDNEYS BLADDER Normal [facility] BLOOD CULTURE ID PANELon A. baumannii Not detected Normal [facility] Comment on above: Performed By: #### B PABLO ####[facility] Jtjtpwgwlw[address] [place], [place] [address]Dr. Elba Anthony BCID CONTROLS PASSED Normal [facility] Comment on above: Performed By: #### B PABLO ####[facility] Tnpmijkwst4233 [place] [address]Dr. Elba Anthony BCIDBTHD BLOOD CULTURE BOTTLE INFORMATION Normal [facility] Comment on above: Performed By: #### B PABLO ####[facility] Lepvvdsjnf8343 [place], [place] [address]Cz. Elba Anthony BCIDHD1 ANTIMICROBIAL RESISTANCE GENES Normal [facility] Comment on above: Performed By: #### B PABLO ####[facility] [address] [place] [address]x. Elba Anthony BCIDHD2 SEE BELOW Normal [facility]spital Comment on above: Result Comment: KPC- carbapenem resistance gene, mecA- methecillin resistance gene, van A/B- vancomycin resistance gene Note: Antimicrobial resitance can occur via multiple mechanisms. A Not Detected result for the Film[employer] antomicrobial resistance gene assays does not indicate antimicrobial susceptibility. Subculturing is required for specis identificationand susceptibility testing of isolates. Performed By: #### B PABLO ####[facility] Y[address]oxzqvf[address] [place], [place] [address]Dr. Elba Anthony BCIDHD3 Positive Normal [facility]ital Comment on above: Performed By: #### B PABLO ####[facility] Inuiydqywh5376 [place] [address]Dr. Elba Anthony BCIDHD4 Negative Normal [facility] Comment on above: Performed By: #### B PABLO ####[facility] Fnscjqvfnh1033 [place] [address]Dr. Elba Anthony BCIDHD5 YEAST Normal [facility]ital Comment on above: Performed By: #### B PABLO ####[facility] Ppvnyymbeg[address] [place], [place] [address]Dr. Elba Anthony BCIDHD6 SEE BELOW Normal [facility] Comment on above: Result Comment: Note : All genus and species BCID Film[employer] results will be verified post subculturing via Maldi-Tof MS testing methodology. Performed By: #### B PABLO ####[facility] Wsldvivedj[address] [place], [place] [address]Dr. Elba Anthony Bottle Set: Set 1 Normal [facility] Comment on above: Performed By: #### B PABLO ####[facility] Hwsfcraceq[address] [place], [place] [address]Dr. Elba Anthony Bottle: Aerobic Normal [facility] Comment on above: Performed By: #### B PABLO ####[facility] Obrlacvcsa[address] [place], [place] [address]Dr. Elba Anthony Lorelei albicans Not detected Normal [facility] Comment on above: Performed By: #### B PABLO ####[facility] Jbygcgxxtw874[address] [place], [place] [address]Dr. Elba Anthony Lorelei glabrata Not detected Normal [facility] Comment on above: Performed By: #### B PABLO ####[facility] Kozzdklylf124[address] [place], [place] [address]Dr. Elba [facility] Lorelei Krusei Not detected Normal [facility] Comment on above: Performed By: #### B PABLO ####[facility] Sfotniigtd8[address] [place], [place] [address]Dr. Yisiobhan Anthony Lorelei Parapsilosis Not detected Normal [facility] Comment on above: Performed By: #### B PABLO ####[facility] Mgbkltxdqz4639[address] [place], [place] [address]Dr. Yilan Anthony Lorelei Tropicalis Not detected Normal [facility] Comment on above: Performed By: #### B PABLO ####[facility] Odbzpzwdkw45[address] [place] [address]Dr. Elba Anthony E. Cloacae complex Not detected Normal [facility] Comment on above: Performed By: #### B PABLO ####[facility] Thwpmoueby99[address] [place] [address]Dr. Elba Anthony Enterobacteriaceae Not detected Normal [facility] Comment on above: Performed By: #### B PABLO ####[facility] Dcyqdjmbli[address] [place], [place] [address]Dr. Elba Anthony Enterococcus Not detected Normal [facility] Comment on above: Performed By: #### B PABLO ####[facility] Pntnnicgjn[address] [place], [place] [address]Dr. Elba Anthony Escheria coli Not detected Normal [facility] Comment on above: Performed By: #### B PABLO ####[facility] Fdizvazbir[address] [place], [place] [address]Dr. Elba Anthony K. oxytoca Not detected Normal [facility] Comment on above: Performed By: #### B PABLO ####[facility] Szrikgunaf24[address] [place], [place] [address]Dr. Elba Anthony K. pneumoniae Not detected Normal [facility] Comment on above: Performed By: #### B PABLO ####[facility] Hebvultfwh[address] [place], [place] [address]Dr. Elba Anthony KPC Resistant Gene Not detected Normal [facility] Comment on above: Performed By: #### B PABLO ####[facility] Xbplelghoj17[address] [place], [place] [address]Dr. Elba Anthony List. monocytogenes Not detected Normal [facility] Comment on above: Performed By: #### B PABLO ####[facility] Ljlxqdqxny228[address] [place], [place] [address]Dr. Elba Anthony mecA Resistant Gene Not Applicable Normal [facility] Comment on above: Performed By: #### B PABLO ####[facility] Gghqaayilq[address] [place], [place] [address]Dr. Elba Anthony Proteus Not detected Normal [facility] Comment on above: Performed By: #### B PABLO ####[facility] Steovfguic[address] [place] [address]Dr. Elba Anthony Pseud. aeruginosa Detected Critically abnormal [facility] Comment on above: Performed By: #### B PABLO ####[facility] Irokfpqbsn[address] [place], [place] [address]Dr. Nereydasiobhan Anthony Seratia marcescens Not detected Normal [facility] Comment on above: Performed By: #### B PABLO ####[facility] Rszrwnwgrr[address] [place], [place] [address]Dr. Elba Anthony Site: Left hand Normal [facility] Comment on above: Performed By: #### B PABLO ####[facility] Qexthvdhfd50[address] [place], [place] [address]Dr. Elba Anthony Staph. aureus Not detected Normal [facility] Comment on above: Performed By: #### B PABLO ####[facility] Omtdmbfxaa25[address] [place], [place] [address]Dr. Elba Anthony Staphylococcus Not detected Normal [facility] Comment on above: Performed By: #### B PABLO ####[facility] Hgnthbwrgy[address] [place], [place] [address]Dr. Elba Anthony Strep. agalactiae Not detected Normal The [facility] Comment on above: Performed By: #### B PABLO ####[facility] Nshwhvpepk[address] [place], [place] [address]Dr. Elba Anthony Strep. pneumoniae Not detected Normal [facility] Comment on above: Performed By: #### B PABLO ####[facility] Lbmdyluley[address] [place], [place] [address]Dr. Elba Anthony Strep. pyogenes Not detected Normal [facility] Comment on above: Performed By: #### B PABLO ####[facility] Vcshnmujas[address] [place], [place] [address]Dr. Nereydalan Anthony Streptococcus Not detected Normal [facility] Comment on above: Performed By: #### B PABLO ####[facility] Uhczwyktsi[address] [place] [address]Dr. Elba Anthony Soledad/B Resist. Gene Not Applicable Normal T [facility] Comment on above: Performed By: #### B PABLO ####[facility] Xsrfpetkay[address] [place], [place] [address]Dr. Elba Anthony BNPon 12-12-2021 Natriuretic peptide B (Bld) [Mass/Vol] 82099.0 pg/mL Critically high <=900.0 [facility] spital Comment on above: Result Comment: test repeated critical value verified Performed By: #### B MP, BNP, HSTROPN ####[facility] Yefzgkzhms[address] [place], [place] [address]Dr. Elba Anthony CARDIAC FADY 3-6on 2 CK [Catalytic activity/Vol] 29 U/L Critically low 55-1 70 [facility] Comment on above: Performed By: #### C MREP ####[facility] [facility] [address]celwflsg[address] [place], [place] [address]Dr. Elba Anthony CK.MB [Mass/Vol] 1.26 ng/mL Normal <=2.37 [facility] Comment on above: Performed By: #### C MREP ####[facility] H[address] [place], [place] [address]Dr. Elba Anthony HSTROP 27.4 pg/mL Normal 4.0-42.2 [facility] Comment on above: Result Comment: CUT- OFF POINTS HAVE BEEN ESTABLISHED BASED ON THE FOURTH UNIVERSAL DEFINITIONS OF MYOCARDIALINFARCTION. THE UPPER REFERENCE LIMIT (URL) OF TROPONIN, DEFINED THE 99TH PERCENTILE OFcTnI DISTRIBUTION IN A REFERENCE POPULATION, HAS BEEN CONFIRMED THE DECISION THRESHOLDFOR VA DIAGNOSIS. Performed By: #### C MREP ####[facility] Jahfjtlfiw[address] [place], [place] [address]Dr. Elba Anthony CK [Catalytic activity/Vol] 23 U/L Critically low 55-1 70 [facility] Comment on above: Performed By: #### C MREP ####[facility] Z[address]qw[address] [place], [place] [address]Dr. Elba Raj CK.MB [Mass/Vol] 1.41 ng/mL Normal <=2.37 [facility] Comment on above: Performed By: #### C MREP ####[facility] [address] [place] [address]Dr. Elba Anthony HSTROP 27.2 pg/mL Normal 4.0-42.2 [facility] Comment on above: Result Comment: CUT- OFF POINTS HAVE BEEN ESTABLISHED BASED ON THE FOURTH UNIVERSAL DEFINITIONS OF MYOCARDIALINFARCTION. THE UPPER REFERENCE LIMIT (URL) OF TROPONIN, DEFINED THE 99TH PERCENTILE OFcTnI DISTRIBUTION IN A REFERENCE POPULATION, HAS BEEN CONFIRMED THE DECISION THRESHOLDFOR VA DIAGNOSIS. Performed By: #### C MREP ####[facility] Wafbw[address] [place], [place] [address]Dr. Nereydasiobhan Anthony CBC W MANUAL DIFFon 12-13-19 22 ATYPICAL LYMPH # Normal [facility] Comment on above: Performed By: #### C SULEIMANMAN ####[facility] C[address] [place], [place] [address]Dr. Elba Anthony ATYPICAL LYMPH % Normal [facility] Comment on above: Performed By: #### C SULEIMANMAN ####[facility] Q[address]sfx[address] [place], [place] [address]Dr. Elba Raj BAND # Normal 0.0-0.3 [facility] Comment on above: Performed By: #### C BCMAN ####[facility] [address] [place], [place] [address]Dr. Elba Anthony BAND % Normal 0-5 [facility] Comment on above: Performed By: #### C BCMAN ####[facility] Ulvtlzrbwd[address] [place], [place] [address]Dr. Elba Anthony BASOM # 0.00 103/ul Normal 0.00-0.10 [facility] Comment on above: Performed By: #### C BCMAN ####[facility] Xlisqfsgxv[address] [place], [place] [address]Dr. Elba Anthony BASOM % 0.0 % Critically low 0.2-2.0 The [facility] Comment on above: Performed By: #### C BCMAN ####[facility] [address] [place] [address]Dr. Elba Anthony BLAST # Normal [facility] Comment on above: Performed By: #### C BCVINCENT ####[facility] [address] [place] [address]Dr. Elba Anthony BLAST % Normal [facility] Comment on above: Performed By: #### C BCVINCENT ####[facility] [address] [place] [address]Dr. Elba Anthony CORRECTED WBC Normal 4.0-11.0 The [facility] Comment on above: Performed By: #### C BCVINCENT ####[facility] [address] [place], [place] [address]Dr. Elba Anthony EOS # 0.00 103/ul Normal 0.00-0.70 [facility] Comment on above: Performed By: #### C BCVINCENT ####[facility] Zmahxwobze[address] [place], [place] [address]Dr. Elba Anthony EOS% 0.0 % Critically low 0.9-7.0 [facility] Comment on above: Performed By: #### C BCVINCENT ####[facility] Bokqvncpkr[address] [place], [place] [address]Dr. Elba Anthony HCT 34.1 % Critically low 42.0-54.0 The [facility] Comment on above: Performed By: #### C BCVINCENT ####[facility] [address]psebvj[address] [place], [place] [address]Dr. Elba Anthony HGB 10.1 g/dl Critically low 14.0-18.0 [facility] Comment on above: Performed By: #### C BCVINCENT ####[facility] L[address]qtfwr[address] [place], [place] [address]Dr. Elba Anthony LYMPHM # 0.32 103/ul Critically low 1.20-3.80 The [facility] Comment on above: Performed By: #### C BCVINCENT ####[facility] [address] [place] [address]Dr. Elba Anthony LYMPHM% 3.0 % Critically low 20.5-60.0 The [facility] Comment on above: Performed By: #### C ADALGISA ####[facility] [address] [place] [address]Dr. Elba Anthony MCH 25.5 pg Critically low 25.9-34.0 The [facility] Comment on above: Performed By: #### C ADALGISA ####[facility] T[address]rrpx[address] [place] [address]Dr. Elba Anthony MCHC 29.6 g/dl Critically low 29.9-35.2 [facility] Comment on above: Performed By: #### C ADALGISA ####[facility] [address] [place] [address]Dr. Elba Anthony MCV 86.1 fL Normal 80.0-94.0 The [facility] Comment on above: Performed By: #### C ADALGISA ####[facility] X[address]hoz[address] [place] [address]Dr. Elba Anthony METAMYELOCYTE # Normal The [facility] Comment on above: Performed By: #### C ADALGISA ####[facility] [address]xnd[address] [place] [address]Dr. Elba Anthony METAMYELOCYTE % Normal The [facility] Comment on above: Performed By: #### C ADALGISA ####[facility] Ojhuvrtkmf16[address] [place] [address]Dr. Elba Anthony MONOM# 0.11 103/ul Critically low 0.30-0.80 The [facility] Comment on above: Performed By: #### C ADALGISA ####[facility] Zelqxsl[address] [place] [address]Dr. Elba Anthony MONOM% 1.0 % Critically low 1.7-12.0 The [facility] Comment on above: Performed By: #### C ADALGISA ####[facility] [address]apan[address] [place] [address]Dr. Elba Anthony MPV 10.4 fL Normal 9.5-13.5 The [facility] Comment on above: Performed By: #### C ADALGISA ####[facility] [address] [place], [place] [address]Po. Elba Anthony MYELOCYTE # Normal [facility] Comment on above: Performed By: #### C ADALGISA ####[facility] [address] [place], [place] [address]Az. Elba Anthony MYELOCYTE % Normal [facility] Comment on above: Performed By: #### C ADALGISA ####[facility] Lyslxlcles[address] [place] [address]Dr. Elba Anthony NRBC Normal [facility] Comment on above: Performed By: #### C ADALGISA ####[facility] H[address]mrfk94[address] [place] [address]Dr. Elba Anthony OVALOCYTES SLIGHT Normal [facility] Comment on above: Performed By: #### C ADALGISA ####[facility] Tzh[address]wquu[address] [place] [address]Dr. Elba Anthony PLT 154 103/ul Normal 150-450 The [facility] Comment on above: Performed By: #### C ADALGISA ####[facility] Cany[address]ylrj[address] [place] [address]Dr. Elba Anthony POIKILOCYTOSIS 1+ Normal The [facility] Comment on above: Performed By: #### C ADALGISA ####[facility] Vyogkmtayq[address] [place] [address]Dr. Elba Anthony RBC 3.96 106/ul Critically low 4.70-6.10 The [facility] Comment on above: Performed By: #### C ADALGISA ####[facility] [address]tk[address] [place] [address]Dr. Elba Anthony RDW 19.0 % Critically high 11.0-15.0 The [facility] Comment on above: Performed By: #### C ADALGISA ####[facility] Twqblbnqae75[address] [place] [address]Dr. Elba Anthony SEG # 10.37 103/ul Critically high 1.40-6.50 The [facility] Comment on above: Performed By: #### C ADALGISA ####[facility] Ygpbrppjtt[address] [place] [address]Dr. Elba Anthony SEG % 96.0 % Critically high 43.0-75.0 The [facility] Comment on above: Performed By: #### C BCMAN ####[facility] Slabx[address]xlih[address] [place] [address]Dr. Elba Anthony TEAR DROP CELLS SLIGHT Normal The [facility] Comment on above: Performed By: #### C SULEIMANMAN ####[facility] [address]fjbgr[address] [place] [address]Dr. Elba Anthony WBC 10.8 103/ul Normal 4.0-11.0 [facility] Comment on above: Performed By: #### C ADALGISA ####[facility] Meiltqvoyd[address] [place] [address]Dr. Elba Anthony CRPon 12-12-2021 CRP 3.1 mg/dL Critically high <=1.0 The [facility] Comment on above: Performed By: #### C RP, TSH, T4 ####[facility] [address] [place] [address]Dr. Elba Anthony CULTURE BLOODon 12-12-2021 Microscopic examination of blood, culture Culture Observations: Positive blood culture. Aerobic & anaerobic bottles. BCID=Pseudomonas aeruginosa Culture Observations: Sending to [facility] for workup. Normal The [facility] Comment on above: Performed By: #### B LDCX2 ####[facility] [address] [place], [place] [address]Dr. Elba Anthony Microscopic examination of blood, culture Culture Observations: Positive blood culture. Aerobic bottle. BCID= Pseudomonas aeruginosa. Culture Observations: Sending to [facility] for workup. Culture Observations: NO GROWTH AT 5 DAYS. ANAEROBIC BOTTLE Normal The [facility] Comment on above: Performed By: #### B LDCX1 ####[facility] [address] [place], [place] [address]Dr. Elba Anthony Covid-19 PCR (CVDTBH)on SARS-CoV-2 (COVID-19) RNA ELIZABETH+probe Ql (Unsp spec) Not detected Normal NOT DETECTED The [facility] Comment on above: Result Comment: When diagnostic testing is negative, the possibility of a false negative should be considered inthe context of a patient's recent exposures and the presence of clinical signs and symptomsconsistent with SARS-CoV-2.This test is not yet approved or cleared by the [place] Food and Drug Administration (FDA).This test was developed by [employer] [place], [place]. The performance characteristics ofthis test were validated by [facility]. The results are not intended to beused as the sole means for clinical diagnosis or patient management decisions. [facility] is authorized under Clinical Laboratory Improvement Amendments (CLIA) to perform high-complexity testing.This test is not yet approved or cleared by the [place] FDA. When there are no FDA-approved or cleared tests available, and other criteria are met, FDA can make tests available under an emergency access mechanism called an Emergency Use Authorization (EUA). The EUA for this test is supported by the [place] of Health and Human Service's declaration that circumstances exist to justify the emergency use of in vitro diagnostics for the detection and/or diagnosis of the virus that causes COVID-19. This EUA will remain in effect for the duration of the COVID-19 declaration justifying emergency of IVDs, unless it is terminated or revoked by the FDA (after which the test may no longer be used). Performed By: #### C VDTB ####[facility] [address]qdjy44[address] [place] [address]Dr. Elba Anthony LACTATE/LACTIC ACIDon 2021 Lactate [Moles/Vol] 2.0 mmol/L Normal 0.7-2.0 The [facility] Comment on above: Performed By: #### L ACT ####[facility] [address]rmwou[address] [place] [address]Dr. Elba Anthony Lactate [Moles/Vol] 1.7 mmol/L Normal 0.7-2.0 The [facility] Comment on above: Performed By: #### L ACT ####[facility] [address]qce[address] [place] [address]Dr. Elba Anthony PROF CHEM 8 (BAS METB)on Anion gap [Moles/Vol] 14.7 mmol/L Normal Th e [facility] Comment on above: Performed By: #### B MP, BNP, HSTROPN ####[facility] H[address]ownfdmzk[address] [place] [address]Dr. Elba Anthony Calcium [Mass/Vol] 8.6 mg/dL Normal 8.5-10.1 [facility] Comment on above: Performed By: #### B MP, BNP, HSTROPN ####[facility] Hzwlfmgpqp[address] [place], [place] [address]Dr. Elba Anthony Chloride [Moles/Vol] 102 mmol/L Normal 98-107 [facility] Comment on above: Performed By: #### B MP, BNP, HSTROPN ####[facility] Viabbyypvt[address] [place], [place] [address]Dr. Elba Anthony CO2 [Moles/Vol] 25.4 mmol/L Normal 22.0-30.0 [facility] Comment on above: Performed By: #### B MP, BNP, HSTROPN ####[facility] [address]wspec[address] [place], [place] [address]Dr. Elba Anthony Creatinine [Mass/Vol] 2.29 mg/dL Critically high 0.66-1.25 [facility] Comment on above: Performed By: #### B MP, BNP, HSTROPN ####[facility] K[address]zj[address]bi[address] [place], [place] [address]Dr. Elba Anthony EGFR-AF CONGOLESE 35 mL/min/1.73m2 Critically low >=60 [facility] Comment on above: Performed By: #### B MP, BNP, HSTROPN ####[facility] [address] [place], [place] [address]Dr. Elba Anthony EGFR-NON AF CONGOLESE 28 mL/min/1.73m2 Critically low >=60 [facility] Comment on above: Performed By: #### B MP, BNP, HSTROPN ####[facility] Ur[address]axzj[address] [place], [place] [address]Dr. Elba Anthony Glucose [Mass/Vol] 130 mg/dL Critically high 74-106 [facility] Comment on above: Performed By: #### B MP, BNP, HSTROPN ####[facility] Y[address]uv[address]ik[address] [place] [address]Dr. Elba Anthony Potassium [Moles/Vol] 4.1 mmol/L Normal 3.4-5.0 [facility] Comment on above: Performed By: #### B MP, BNP, HSTROPN ####[facility] Rzjm[address]gej[address] [place] [address]Dr. Elba Anthony Sodium [Moles/Vol] 138 mmol/L Normal 137-145 [facility] Comment on above: Performed By: #### B MP, BNP, HSTROPN ####[facility] [address]locnknrsa[address] [place], [place] [address]Dr. Elba Anthony Urea nitrogen [Mass/Vol] 43.0 mg/dL Critically high 7.0-18 .0 [facility] Comment on above: Performed By: #### B MP, BNP, HSTROPN ####[facility] [address]bahxkkp[address] [place], [place] [address]Dr. Elba Anthony Urea nitrogen/Creatinine [Mass ratio] 18.8 mg/mg Normal [facility] Comment on above: Performed By: #### B MP, BNP, HSTROPN ####[facility] [address]ptcft[address] [place] [address]Dr. Elba Anthony T4on 12-12-2021 T4 [Mass/Vol] 11.10 ug/dL Critically high 5.53-11.00 [facility] Comment on above: Performed By: #### C RP, TSH, T4 ####[facility] [address]wuwujnj[address] [place], [place] [address]Dr. Elba Anthony TROPONIN, HIGH SENSITIVITYon 12-12-2021 HSTROP 26.2 pg/mL Normal 4.0-42.2 [facility] Comment on above: Result Comment: CUT- OFF POINTS HAVE BEEN ESTABLISHED BASED ON THE FOURTH UNIVERSAL DEFINITIONS OF MYOCARDIALINFARCTION. THE UPPER REFERENCE LIMIT (URL) OF TROPONIN, DEFINED THE 99TH PERCENTILE OFcTnI DISTRIBUTION IN A REFERENCE POPULATION, HAS BEEN CONFIRMED THE DECISION THRESHOLDFOR VA DIAGNOSIS. Performed By: #### B MP, BNP, HSTROPN ####[facility] [address] [place] [phone]. Elba Anthony TSHon 12-12-2021 TSH 1.233 uIU/mL Normal 0.470-4.680 The [facility] Comment on above: Performed By: #### C RP, TSH, T4 ####[facility] [address] [place] [address]Dr. Elba Anthony TSH RANGE SEE BELOW Normal [facility] Comment on above: Result Comment: <0.3 4 UIU/ml HYPERTHYROID 0.34-5.60 UIU/ml EUTHYROID >5.60 UIU/ml HYPOTHYROID Performed By: #### C RP, TSH, T4 ####[facility] [address] [place], [place] [address]Jo. Elba Anthony US ARLIN DOP LEG RTon 12-13-19 22 US ARLIN DOP LEG RT Normal The [facility] XR TIB_FIB RT 2Von 2 XR TIB_FIB RT 2V Normal [facility] APTTon 08-01-2021 aPTT Coag (Bld) [Time] 34.5 s Normal 25.0-35.0 Th e [facility] Comment on above: Result Comment: ALL RESULTS MUST BE INTERPRETED WITH RESPECT TO BLOOD DRAWING ARTIFACT OR DILUTION ERROR OF ANTICOAGULANT AT THE TIME OF SAMPLING. THE APTT SHOULD NOT BE USED TO MONITOR UNFRACTIONATED HEPARIN THERAPY, THIS LABORATORY NO LONGER HAS AN ESTABLISHED THERAPEUTIC RANGE BASED ON THE APTT. IT IS RECOMMENDED THAT THE [facility] - HEPARIN ASSAY (ANTI-XA ACTIVITY) BE USED FOR THIS PURPOSE. Performed By: #### 5 0103 #### [facility] [address] [facility] [place] [address], [facility] BASIC METABOLIC PANELon 07-10 Calcium [Mass/Vol] 8.6 mg/dL Normal 8.6-10.3 The [facility] Comment on above: Order Comment: No: D o not add to previous draw Performed By: #### 3 2044 #### [facility] [address] [place] [address], [place] Chloride [Moles/Vol] 108 mmol/L High 98-107 The [facility] Comment on above: Order Comment: No: D o not add to previous draw Performed By: #### 3 2044 #### [facility] [address] [place] [address], [place] CO2 [Moles/Vol] 20 mmol/L Low 21-31 [facility] Comment on above: Order Comment: No: D o not add to previous draw Performed By: #### 3 2044 #### [facility] [address] [place] [address], [place] Creatinine [Mass/Vol] 2.66 mg/dL High 0.70-1.30 [facility] Comment on above: Order Comment: No: D o not add to previous draw Performed By: #### 3 2044 #### [facility] [address] [place] [address], [facility] eGFR- 29 ml/min/1.73sq m Abnormal >60 The [facility] Comment on above: Order Comment: No: D o not add to previous draw Performed By: #### 3 2044 #### [facility] [address] [place] [address], [place] eGFR- non- 24 ml/min/1.73sq m Abnormal > 60 [facility] Comment on above: Order Comment: No: D o not add to previous draw Performed By: #### 3 2044 #### [facility] [address] [place] [address], [place] Glucose [Mass/Vol] 125 mg/dL High 70-100 [facility] Comment on above: Order Comment: No: D o not add to previous draw Performed By: #### 3 2044 #### [facility] [address] [place] [address], [place] Potassium [Moles/Vol] 4.4 mmol/L Normal 3.5-5.1 The [facility] Comment on above: Order Comment: No: D o not add to previous draw Performed By: #### 3 2044 #### [facility] [address] [place] [address], [place] Sodium [Moles/Vol] 138 mmol/L Normal 136-145 The [facility] Comment on above: Order Comment: No: D o not add to previous draw Performed By: #### 3 2044 #### [facility] [address] [place] [address], [place] Urea nitrogen [Mass/Vol] 54 mg/dL High 7-25 The [facility] Comment on above: Order Comment: No: D o not add to previous draw Performed By: #### 3 2044 #### [facility] [address] [place] [address], [place] Calcium [Mass/Vol] 8.5 mg/dL Low 8.6-10.3 The [facility] Comment on above: Order Comment: No: D o not add to previous draw Performed By: #### 5 102 #### [facility] [address] [place] [address], [place] Chloride [Moles/Vol] 107 mmol/L Normal 98-107 The [facility] Comment on above: Order Comment: No: D o not add to previous draw Performed By: #### 5 102 #### [facility] [address] [place] [address], [place] CO2 [Moles/Vol] 23 mmol/L Normal 21-31 The [facility] Comment on above: Order Comment: No: D o not add to previous draw Performed By: #### 5 102 #### [facility] [address] [place] [address], [place] Creatinine [Mass/Vol] 2.86 mg/dL High 0.70-1.30 The [facility] Comment on above: Order Comment: No: D o not add to previous draw Performed By: #### 5 0103 #### [facility] [address] [place] [address], [place] eGFR- 27 ml/min/1.73sq m Abnormal >60 The [facility] Comment on above: Order Comment: No: D o not add to previous draw Performed By: #### 5 0103 #### [facility] [address] [place] [address], [place] eGFR- non- 22 ml/min/1.73sq m Abnormal > 60 The [facility] Comment on above: Order Comment: No: D o not add to previous draw Performed By: #### 5 0103 #### [facility] [address] [place] [address], [place] Glucose [Mass/Vol] 114 mg/dL High 70-100 [facility] Comment on above: Order Comment: No: D o not add to previous draw Performed By: #### 5 0103 #### [facility] [address] [place] [address], [place] Potassium [Moles/Vol] 4.5 mmol/L Normal 3.5-5.1 The [facility] Comment on above: Order Comment: No: D o not add to previous draw Performed By: #### 5 0103 #### [facility] [address] [place] [address], [place] Sodium [Moles/Vol] 138 mmol/L Normal 136-145 [facility] Comment on above: Order Comment: No: D o not add to previous draw Performed By: #### 5 0103 #### [facility] [address] [place] [address], [place] Urea nitrogen [Mass/Vol] 58 mg/dL High 7-25 The [facility] Comment on above: Order Comment: No: D o not add to previous draw Performed By: #### 5 0103 #### [facility] [address] CBC W/DIFFon 08-01-2021 ABS IMM GRANS 0.0 10*3/uL Normal 0.0-0.2 The [facility] Comment on above: Order Comment: No: D o not add to previous draw Performed By: #### 5 0103 #### [facility] [address] [place] [address], [facility] ABS NEUTROPHILS 5.7 10*3/uL Normal 1.6-7.6 The [facility] Comment on above: Order Comment: No: D o not add to previous draw Performed By: #### 5 0103 #### [facility] [address] [place] [address], [facility] Basophils (Bld) [#/Vol] 0.0 10*3/uL Normal 0.0-0.2 The [facility] Comment on above: Order Comment: No: D o not add to previous draw Performed By: #### 5 0103 #### [facility] [address] [place] [address], [facility] Basophils/100 WBC (Bld) 0.4 % Normal 0.0-1.0 T [facility] Comment on above: Order Comment: No: D o not add to previous draw Performed By: #### 5 0103 #### [facility] [address] [place] [address], [facility] Eosinophils (Bld) [#/Vol] 0.0 10*3/uL Normal 0.0-0.5 The [facility] Comment on above: Order Comment: No: D o not add to previous draw Performed By: #### 5 0103 #### [facility] [address] [place] [address], [facility] Eosinophils/100 WBC (Bld) 0.6 % Normal 0.0-6.0 The [facility] Comment on above: Order Comment: No: D o not add to previous draw Performed By: #### 5 0103 #### [facility] [address] [facility]. [address] Erythrocyte distribution wid th (RBC) [Ratio] 14.8 % Normal 11.5-15.0 The [facility] Comment on above: Order Comment: No: D o not add to previous draw Performed By: #### 5 0103 #### [facility] [address] [facility] [place] [address], [facility] Hematocrit (Bld) [Volume fraction] 37.0 % Low 39.0-50.0 The [facility] Comment on above: Order Comment: No: D o not add to previous draw Performed By: #### 5 0103 #### [facility] [address] [place] [address], [facility] Hemoglobin (Bld) [Mass/Vol] 11.4 g/dL Low 13.0-17. 0 The [facility] Comment on above: Order Comment: No: D o not add to previous draw Performed By: #### 5 0103 #### [facility] [address] [place] [address], [facility] IMMATURE GRANS 0.4 % Normal 0.0-1.0 The [facility] Comment on above: Order Comment: No: D o not add to previous draw Performed By: #### 5 3 #### [facility] [address] [facility] [place] [address], [facility] Lymphocytes (Bld) [#/Vol] 0.4 10*3/uL Low 1.2-4.0 The [facility] Comment on above: Order Comment: No: D o not add to previous draw Performed By: #### 5 0103 #### [facility] [address] [place] [address], [facility] Lymphocytes/100 WBC (Bld) 5.6 % Low 20.0-45.0 The [facility] Comment on above: Order Comment: No: D o not add to previous draw Performed By: #### 5 0103 #### [facility] [address] [place] [id number], [facility] MCH (RBC) [Entitic mass] 27.9 pg Normal 27.0-33.0 The [facility] Comment on above: Order Comment: No: D o not add to previous draw Performed By: #### 5 0103 #### [facility] [address] [place] [id number], [facility] MCHC (RBC) [Mass/Vol] 30.8 g/dL Low 32.0-35.0 The [facility] Comment on above: Order Comment: No: D o not add to previous draw Performed By: #### 5 3 #### [facility] [address] [place] [id number], [facility] MCV (RBC) [Entitic vol] 90.5 fL Normal 82.0-98.0 T he [facility] Comment on above: Order Comment: No: D o not add to previous draw Performed By: #### 5 3 #### [facility] [address] [facility] [place] [id number], [facility] Monocytes (Bld) [#/Vol] 0.6 10*3/uL Normal 0.1-1.0 The [facility] Comment on above: Order Comment: No: D o not add to previous draw Performed By: #### 5 3 #### [facility] [address] [facility] [address], [facility] MONOS 8.7 % Normal 5.0-12.0 The [facility] Comment on above: Order Comment: No: D o not add to previous draw Performed By: #### 5 3 #### [facility] [address] [facility] [address], [facility] Neutrophils/100 WBC (Bld) 84.3 % High 40.0-72.0 The [facility] Comment on above: Order Comment: No: D o not add to previous draw Performed By: #### 5 3 #### [facility] [address] [facility] [place] [address], [facility] Nucleated RBC/100 WBC (Bld) [Ratio] 0 % Normal 0-0 The [facility] Comment on above: Order Comment: No: D o not add to previous draw Performed By: #### 5 0103 #### [facility] [address] [facility] [place] [address], [facility] PLAT CNT 144 10*3/uL Low 150-400 The [facility] Comment on above: Order Comment: No: D o not add to previous draw Performed By: #### 5 0103 #### [facility] [address] [place] [address], [facility] RBC (Bld) [#/Vol] 4.09 10*6/uL Low 4.20-5.70 The [facility] Comment on above: Order Comment: No: D o not add to previous draw Performed By: #### 5 0103 #### [facility] [address] [place] [address], [facility] WBC (Bld) [#/Vol] 6.75 10*3/uL Normal 4.00-10.60 The [facility] Comment on above: Order Comment: No: D o not add to previous draw Performed By: #### 5 0103 #### [facility] [address] CHEST AND LATERALon 08-01-20 CHEST AND LATERAL [facility] Department of Radiology [address] [place] [id number] Patient Name: MAN PATEL : 1950 Sex: M Age: Race: White Pt. Location: [facility] Patient Status: I Ordered Date: 08/01/2021 7:00:00 AM Completed Date: 08/01/2021 08:33 AM Requesting Provider: SNOW SCOTT Attending Provider: STACEY MACARIO Report Copy To: Signs & Symptoms: Post Pacemaker/AICD Placement History: See Comments Comments: Check Pacemaker/AICD Lead Position, Chest X-ray PA \EANDE\ LAT in Dept ;DO NOT lift affected arm above shoulder. S/P pacemaker/ICD implant. Verify lead placement Exam: CHEST AND LATERAL CHEST AND LATERAL 08/01/2021 8:33 AM CLINICAL INDICATIONS: Post Pacemaker/AICD Placement TECHNOLOGIST COMMENTS: post pacemaker surgery QUESTION FOR THE RADIOLOGIST: Check Pacemaker/AICD Lead Position, Chest X-ray PA \EANDE\ LAT in Dept ;DO NOT lift affected arm above shoulder. S/P pacemaker/ICD implant. Verify lead placement PROTOCOL: AP(PA) and Lateral views were obtained. COMPARISON: July 31, 2021. FINDINGS: A bipolar cardiac pacemaker has been placed since the prior exam with the battery pack in the left subclavicular region and electrodes in the right ventricle and right atrium. No pneumothorax. Mild cardiomegaly and sternotomy wires. The lungs appear clear. IMPRESSION: Satisfactory positioning of pacemaker with no pneumothorax. Electronically signed: Dilcia Hernandez. Transcribed by: [email or web address], User Resident: Electronically Signed by: DILCIA HERNANDEZ @ 08/01/2021 08:57 AM Normal The [facility] Comment on above: Order Comment: Check Pacemaker/AICD Lead Position, Chest X-ray PA \EANDE\ LAT in Dept ;DO NOT lift affected arm above shoulder. S/P pacemaker/ICD implant. Verify lead placement CPKon 08-01-2021 CK [Catalytic activity/Vol] 576 U/L High 30-223 The [facility] Comment on above: Performed By: #### 5 0103 #### [facility] [address] [facility]. [address] Cardiovascular Lab Reporton 08-01-2021 Cardiovascular Lab Report [facility] Patient Name: [facility] Donovan Castillo MR #: [id number] Department of Physician: Inocencio Franks M.D. Medicine Service Date: 07/31/2021 Division of Birthdate: 1950 Cardiology Room #: 5AB [id number] Adult Cardiovascular Services [facility] [address] [facility]. [place], [place] [address] Cardiovascular Laboratory Report INDICATION FOR PERMANENT PACEMAKER IMPLANTATION: The patient is a 71-year-old gentleman with a history of coronary artery bypass surgery. He has been feeling unwell as of late and then today experienced a severe syncopal episode, was taken to the emergency room by paramedical personnel where he was found to be in complete heart block. His blood pressure was very tenuous and he was placed on dopamine and an external pacer. His capture and blood pressure are stable, and because of his persistent complete heart block, he will undergo permanent pacemaker implantation today. DESCRIPTION OF PROCEDURE: After written informed consent was obtained, he was brought to the pacemaker laboratory in the fasting state. The right groin was prepped and draped in the usual manner. A 1% Xylocaine solution was infiltrated for local anesthesia. Utilizing percutaneous technique, the right femoral vein was cannulated under fluoroscopic guidance. A temporary pacemaker wire was positioned in the right ventricle to provide support during the surgery. Adequate pacing and sensing levels were demonstrated. Attention was then turned to the upper chest area. Contrast injection for venography of the upper extremity was performed to delineate the course and patency of the left subclavian. The left subclavicular fossa was then prepped and draped in the usual manner. A 1% Xylocaine solution infiltrated for local anesthesia. Utilizing percutaneous technique, the left subclavian was cannulated, and under fluoroscopic guidance, a guidewire advanced to the level of the inferior vena cava to ensure intravascular placement. Then, following initial sharp incision, meticulous blunt dissection was employed to create a subfascial pocket. Via 2 breakaway introducer sheaths, Biotronik Solia active fixation leads were placed in the right ventricular septum and right atrial appendage. The active fixation coils of each were deployed and the leads were sutured into place with 0 silk suture. They were connected to a Biotronik Edora dual-chamber pacing system. This was positioned in the previously created subfascial pocket and sutured into place with an 0 silk suture. The via-off field telemetry adequate sensing and pacing levels were determined. The right atrial lead had a pacing threshold of 1.1 V at 0.4 milliseconds pulse width with a measured P wave amplitude of 3.2 mV, impedance was 565 ohms. The right ventricular lead had a pacing threshold of 1.2 V at 0.4 milliseconds, pulse width with an R-wave amplitude of 6.9 mV, and an impedance of 624 ohms. The pocket was then irrigated with antibiotic solution. The fascia layer was closed with continuous 2-0 Vicryl suture. The subdermal area with interrupted 3-0 Biosyn sutures placed utilizing a buried knot technique. The skin surface was closed with Dermabond glue. The wound was dressed with a Telfa pad and Tegaderm dressing. Sponge and needle counts were correct at the end of the case. The temporary pacemaker was then removed under fluoroscopic guidance and hemostasis obtained by direct pressure over the puncture site area. Conscious sedation was maintained throughout the case with intravenous midazolam and fentanyl. He was returned to the holding area in stable hemodynamic condition. IMPRESSIONS: 1. Complete heart block. 2. Dual-chamber pacemaker insertion. 3. Contrast injection for venography of the upper extremity. 4. Temporary pacemaker placement. 5. Fluoroscopy. 6. Conscious sedation. Electronically Signed by: Inocencio Franks M.D. 08/06/2021 07:53 P Inocencio Franks M.D. Date Dict: 07/31/2021/04:01 P/Inocencio Franks M.D. Date Trans: 08/01/2021 05:31 Keerthi/surekha [id number] [place] The [facility] MAGNESIUM BLOODon 08-01-2021 Magnesium [Mass/Vol] 2.2 mg/dL Normal 1.9-2.7 The [facility] Comment on above: Order Comment: No: D o not add to previous draw Performed By: #### 5 0103 #### [facility] [address] [facility] [address], [facility] PHOSPHORUS BLOODon 1 Phosphate [Mass/Vol] 2.9 mg/dL Normal 2.5-5.0 The [facility] Comment on above: Order Comment: No: D o not add to previous draw Performed By: #### 5 0103 #### [facility] [address] [facility] [place] [address], [facility] PROTHROMBIN TIMEon 1 INR Coag (PPP) [Relative time] 1.54 {INR} High 0.91-1.16 The [facility] Comment on above: Order Comment: No: D o not add to previous draw Result Comment: [facility] P RECOMMENDED INR FOR WARFARIN THERAPY ------- CONDITION INR PROPHYLAXIS OF VENOUS THROMBOSIS 2-3 (HIGH-RISK SURGERY) TREATMENT OF VENOUS THROMBOSIS 2-3 TREATMENT OF PULMONARY EMBOLISM 2-3 PREVENTION OF SYSTEMIC EMBOLISM: 2-3 ACUTE MYOCARDIAL INFARCTION TISSUE HEART VALVES VALVULAR HEART DISEASE ATRIAL FIBRILLATION RECURRENT SYSTEMIC EMBOLISM MECHANICAL HEART VALVE 2.5-3.5 FROM: ORAL ANTICOAGULANTS. MECHANISM OF ACTION, CLINICAL EFFECTIVENESS, AND OPTIMAL THERAPEUTIC RANGE. CHEST 1995;108:231S-246S. Performed By: #### 5 0103 #### [facility] [address] [facility] [place] [address], [facility] PT Coag (PPP) [Time] 18.4 s High 12.3-14.8 The [facility] Comment on above: Order Comment: No: D o not add to previous draw Result Comment: ALL RESULTS MUST BE INTERPRETED WITH RESPECT TO BLOOD DRAWING ARTIFACT OR DILUTION ERROR OF ANTICOAGULANT AT THE TIME OF SAMPLING. Performed By: #### 5 0103 #### [facility] [address] [place] [address], [facility] INR Coag (PPP) [Relative time] 1.68 {INR} High 0.91-1.16 The [facility] Comment on above: Result Comment: [facility] RECOMMENDED INR FO R WARFARIN THERAPY ------- CONDITION INR PROPHYLAXIS OF VENOUS THROMBOSIS 2-3 (HIGH-RISK SURGERY) TREATMENT OF VENOUS THROMBOSIS 2-3 TREATMENT OF PULMONARY EMBOLISM 2-3 PREVENTION OF SYSTEMIC EMBOLISM: 2-3 ACUTE MYOCARDIAL INFARCTION TISSUE HEART VALVES VALVULAR HEART DISEASE ATRIAL FIBRILLATION RECURRENT SYSTEMIC EMBOLISM MECHANICAL HEART VALVE 2.5-3.5 FROM: ORAL ANTICOAGULANTS. MECHANISM OF ACTION, CLINICAL EFFECTIVENESS, AND OPTIMAL THERAPEUTIC RANGE. CHEST 1995;108:231S-246S. Performed By: #### 5 0103 #### [facility] [address] [place] [address], [facility] PT Coag (PPP) [Time] 19.7 s High 12.3-14.8 The [facility] Comment on above: Result Comment: ALL RESULTS MUST BE INTERPRETED WITH RESPECT TO BLOOD DRAWING ARTIFACT OR DILUTION ERROR OF ANTICOAGULANT AT THE TIME OF SAMPLING. Performed By: #### 5 0103 #### [facility] [address] [place] [address], [facility] URIC ACID BLOODon 08-01-2021 Urate [Mass/Vol] 10.1 mg/dL High 4.4-7.6 [facility] Comment on above: Performed By: #### 5 3 #### [facility] [address] [place] [address], [facility] BASIC METABOLIC PANELon 11-2 Calcium [Mass/Vol] 7.3 mg/dL Low 8.6-10.3 [facility] Comment on above: Performed By: #### 3 2044 #### [facility] [address] [place] [address], [place] Chloride [Moles/Vol] 111 mmol/L High 98-107 The [facility] Comment on above: Performed By: #### 3 2044 #### [facility] [address] [place] [address], [place] CO2 [Moles/Vol] 17 mmol/L Low 21-31 The [facility] Comment on above: Performed By: #### 3 2044 #### [facility] [address] [place] [address], [place] Creatinine [Mass/Vol] 2.68 mg/dL High 0.70-1.30 The [facility] Comment on above: Performed By: #### 3 2044 #### [facility] [address] [place] [address], [place] eGFR- 29 ml/min/1.73sq m Abnormal >60 The [facility] Comment on above: Performed By: #### 3 2044 #### [facility] [address] [place] [address], [place] eGFR- non- 24 ml/min/1.73sq m Abnormal > 60 The [facility] Comment on above: Performed By: #### 3 2044 #### [facility] [address] [place] [address], [place] Glucose [Mass/Vol] 147 mg/dL High 70-100 The [facility] Comment on above: Performed By: #### 3 2044 #### [facility] [address] [place] [address], [facility] Potassium [Moles/Vol] 4.4 mmol/L Normal 3.5-5.1 The [facility] Comment on above: Performed By: #### 3 2044 #### [facility] [address] [facility] [address], [facility] Sodium [Moles/Vol] 138 mmol/L Normal 136-145 The [facility] Comment on above: Performed By: #### 3 2044 #### [facility] [address] [facility] [address], [facility] Urea nitrogen [Mass/Vol] 55 mg/dL High 7-25 The [facility] Comment on above: Performed By: #### 3 2044 #### [facility] [address] [facility] [place] [address], [facility] CBC W/DIFFon 07-31-2021 ABS IMM GRANS 0.0 10*3/uL Normal 0.0-0.2 The [facility] Comment on above: Performed By: #### 5 102 #### [facility] [address] [facility] [place] [address], [facility] ABS NEUTROPHILS 10.7 10*3/uL High 1.6-7.6 The [facility] Comment on above: Performed By: #### 5 102 #### [facility] [address] [facility] [place] [address], [facility] Basophils (Bld) [#/Vol] 0.0 10*3/uL Normal 0.0-0.2 The [facility] Comment on above: Performed By: #### 5 102 #### [facility] [address] [facility] [place] [address], [place] Basophils/100 WBC (Bld) 0.3 % Normal 0.0-1.0 Bob walden [facility] Comment on above: Performed By: #### 5 0103 #### [facility] [address] [place] [address], [facility] Eosinophils (Bld) [#/Vol] 0.1 10*3/uL Normal 0.0-0.5 The [facility] Comment on above: Performed By: #### 5 0103 #### [facility] [address] [place] [address], [facility] Eosinophils/100 WBC (Bld) 0.4 % Normal 0.0-6.0 The [facility] Comment on above: Performed By: #### 5 0103 #### [facility] [address] [facility] [address] Erythrocyte distribution wid th (RBC) [Ratio] 14.6 % Normal 11.5-15.0 [facility] Comment on above: Performed By: #### 5 0103 #### [facility] [address] [facility] [place] [address], [facility] Hematocrit (Bld) [Volume fraction] 44.3 % Normal 39.0-50.0 The [facility] Comment on above: Performed By: #### 5 0103 #### [facility] [address] [facility] [place] [address], [facility] Hemoglobin (Bld) [Mass/Vol] 13.6 g/dL Normal 13.0-17. 0 The [facility] Comment on above: Performed By: #### 5 0103 #### [facility] [address] [facility] [address], [facility] IMMATURE GRANS 0.3 % Normal 0.0-1.0 The [facility] Comment on above: Performed By: #### 5 0103 #### [facility] [address] [place] [address], [facility] Lymphocytes (Bld) [#/Vol] 0.5 10*3/uL Low 1.2-4.0 The [facility] Comment on above: Performed By: #### 5 0103 #### [facility] [address] [facility] [place] [address], [facility] Lymphocytes/100 WBC (Bld) 4.1 % Low 20.0-45.0 The [facility] Comment on above: Performed By: #### 5 0103 #### [facility] [address] [place] [address], [facility] MCH (RBC) [Entitic mass] 27.6 pg Normal 27.0-33.0 The [facility] Comment on above: Performed By: #### 5 0103 #### [facility] [address] [facility]. [address] MCHC (RBC) [Mass/Vol] 30.7 g/dL Low 32.0-35.0 The [facility] Comment on above: Performed By: #### 5 0103 #### [facility] [address] [place] [address], [facility] MCV (RBC) [Entitic vol] 90.0 fL Normal 82.0-98.0 T [facility] Comment on above: Performed By: #### 5 0103 #### [facility] [address] [place] [address], [facility] Monocytes (Bld) [#/Vol] 1.0 10*3/uL Normal 0.1-1.0 The [facility] Comment on above: Performed By: #### 5 0103 #### [facility] [address] [place] [address], [facility] MONOS 8.3 % Normal 5.0-12.0 The [facility] Comment on above: Performed By: #### 5 3 #### [facility] [address] [facility] [place] [address], [facility] Neutrophils/100 WBC (Bld) 86.6 % High 40.0-72.0 [facility] Comment on above: Performed By: #### 5 0103 #### [facility] [address] Nucleated RBC/100 WBC (Bld) [Ratio] 0 % Normal 0-0 The [facility] Comment on above: Performed By: #### 5 0103 #### [facility] [address] [facility]. [address] PLAT CNT 175 10*3/uL Normal 150-400 The [facility] Comment on above: Performed By: #### 5 0103 #### [facility] [address] RBC (Bld) [#/Vol] 4.92 10*6/uL Normal 4.20-5.70 [facility] Comment on above: Performed By: #### 5 0103 #### [facility] [address] WBC (Bld) [#/Vol] 12.36 10*3/uL High 4.00-10.60 [facility] Comment on above: Performed By: #### 5 0103 #### [facility] [address] POC SARS COV2 ANTIGEN NEGATI VE 07-31-2021 POC SARS COV2 ANTIGEN NEG Negative Normal NEGATIVE The [facility] Comment on above: Result Comment: Nega tive results from patients with symptom onset beyond seven days, should be treated presumptive and confirmation with a molecular assay, if necessary, for patient management, may be performed. Negative results do not rule out SARS-CoV-2 infection and should not be used as the sole basis for treatment or patient management decisions, including infection control decisions. Negative results should be considered in the context of a patient?s recent exposures, history and the presence of clinical signs and symptoms consistent with COVID-19. The [employer] COVID-19 Ag Card is a lateral flow immunoassay intended for the qualitative detection of nucleocapsid protein antigen from SARS-CoV-2 in direct nasal swabs from individuals within the first seven days of symptom onset. Testing is limited to laboratories certified under the Clinical Laboratory Improvement Amendments of 1988 (CLIA), 42 U.S.C. ???263a, that meet the requirements to perform moderate, high or waived complexity tests. This test is authorized for use at the Point of Care (POC), i.e., in patient care settings operating under a CLIA Certificate of Waiver, Certificate of Compliance, or Certificate of Accreditation. Performed By: #### 3 1977 ####[place] [id number] [address] PORTABLE CHEST 1 VIEW 07-10 PORTABLE CHEST 1 VIEW [facility] Department of Radiology [address] [place] [id number] Patient Name: MAN PATEL : 1950 Sex: M Age: Race: White Pt. Location: [facility] Patient Status: E Ordered Date: 07/31/2021 12:20:00 PM Completed Date: 07/31/2021 12:54 PM Requesting Provider: ALON ABAD Attending Provider: STACEY MACARIO Report Copy To: Signs & Symptoms: Acute Respiratory Distress History: Comments: Evaluate for Aspiration Exam: PORTABLE CHEST 1 VIEW PORTABLE CHEST 1 VIEW CLINICAL INDICATION: Shortness of breath. COMPARISON: None. IMPRESSION: 1. Pulmonary vascular congestion, no large pleural effusion or focal airspace opacity. 2. Borderline to mild cardiomegaly. Status post median sternotomy. Electronically signed: Rinku Agrawal. Transcribed by: [id number], User Resident: Electronically Signed by: RINKU AGRAWAL @ 07/31/2021 01:[address] [facility] Comment on above: Order Comment: Evalu ate for Aspiration TROPONIN-Ion 07-31-2021 Troponin I.cardiac [Mass/Vol] 0.07 ng/mL High 0.00-[address] [facility] Comment on above: Result Comment: REFE RENCE RANGES: 0.00 - 0.04 ng/ml NORMAL 0.05 - 0.50 ng/ml INDETERMINATE > 0.50 ng/ml CONSISTENT WITH AN M.I. Performed By: #### 3 2044 #### [facility] [address] [facility]. [address] TSH3 WITH REFLEX FT4on 07-31 TSH 3RD GENERATION 1.98 uIU/mL Normal 0.34-5.60 [facility] [place] Comment on above: Performed By: #### 3 2044 #### [facility] [address] [facility]. [address] Vital Signs Date Time Vital Sign Value Performing Clinician Facility 05-27-2023 13:00-0400 Body height 175.26 cm [employer] Other [facility] Other 05-27-2023 13:00-0400 Body mass index (BMI) [Ratio] 41.93 kg/m2 [employer] Other [facility] Other 05-27-2023 13:00-0400 Body temperature 96.8 [degF] [facility] [employer] Other [facility] Other 05-27-2023 13:00-0400 Body weight 128.82 kg [employer] Other [facility] Other 05-27-2023 13:00-0400 Diastolic blood pressure 64 mm[Hg] Aziz Bakhous Other [facility] Other 05-27-2023 13:00-0400 Respiratory rate 20 /min Aziz Bakhous Other [facility] Other 05-27-2023 13:00-0400 SaO2% (BldA) [Mass fraction] 96 % Aziz Bakhous Other [facility] Other 05-27-2023 13:00-0400 Systolic blood pressure 111 mm[Hg] Aziz Bakhous Other [facility] Other 12-10-2022 15:00-0400 Body height 175.26 cm Aziz Bakhous Other [facility] Other 12-10-2022 15:00-0400 Body mass index (BMI) [Ratio] 39.75 kg/m2 Aziz Bakhous Other [facility] Other 12-10-2022 15:00-0400 Body temperature 96.7 [degF] Aziz Bakhous Other [facility] Other 12-10-2022 15:00-0400 Body weight 122.11 kg Aziz Bakhous Other [facility] Other 12-10-2022 15:00-0400 Diastolic blood pressure 70 mm[Hg] Aziz Bakhous Other [facility] Other 12-10-2022 15:00-0400 Respiratory rate 20 /min Aziz Bakhous Other [facility] Other 12-10-2022 15:00-0400 SaO2% (BldA) [Mass fraction] 95 % Aztram Robersons Other [facility] Other 12-10-2022 15:00-0400 Systolic blood pressure 110 mm[Hg] Aztram Robersons Other [facility] Other 09-17-2022 11:00-0500 Body height 175.26 cm Dedra Robersons Other [facility] Other 09-17-2022 11:00-0500 Body mass index (BMI) [Ratio] 39.54 kg/m2 Dedra Robersons Other [facility] Other 09-17-2022 11:00-0500 Body temperature 96.2 [degF] Dedra Robersons Other [facility] Other 09-17-2022 11:00-0500 Body weight 121.47 kg Dedra Robersons Other [facility] Other 09-17-2022 11:00-0500 Diastolic blood pressure 60 mm[Hg] Dedra Robersons Other [facility] Other 09-17-2022 11:00-0500 Respiratory rate 20 /min Dedra Robersons Other [facility] Other 09-17-2022 11:00-0500 SaO2% (BldA) [Mass fraction] 97 % Dedra Robersons Other [facility] Other 09-17-2022 11:00-0500 Systolic blood pressure 102 mm[Hg] Abhilashtram Reji Other [facility] Other 06-27-2022 17:43-0400 Diastolic blood pressure 56 mm[Hg] MD Cullen Costa Work Phone: [facility] 06-27-2022 17:43-0400 Heart rate 78 /min MD Cullen Costa Work Phone: [facility] 06-27-2022 17:43-0400 Respiratory rate 20 /min MD Cullen Costa Work Phone: [facility] 06-27-2022 17:43-0400 SaO2% (BldA) [Mass fraction] 95 % MD Cullen Costa Work Phone: [facility] 06-27-2022 17:43-0400 Systolic blood pressure 109 mm[Hg] MD Cullen Costa Work Phone: [facility] 06-27-2022 14:32-0400 Body height 167.64 cm MD Cullen Costa Work Phone: [facility] 06-27-2022 14:32-0400 Body temperature 97.8 [degF] MD Cullen Costa Work Phone: [facility] 06-27-2022 14:32-0400 Body weight 117.02 kg MD Cullen Costa Work Phone: [facility] Encounters Encounter Date Encounter Type Care Provider Facility Start: 07-28-2023 End: 07-28-2023 ambulatory GAGE [facility] Start: 06-09-2023 End: 06-09-2023 ambulatory Cullen Costa Other [facility] [employer] Other Start: 06-09-2023 Telephone encounter Cullen Costa [facility] Start: 05-27-2023 End: 05-27-2023 ambulatory Dedra Mendoza Other [facility] Other Start: 05-27-2023 Office outpatient visit 25 minutes Aziz Bakhous [facility] Start: 05-20-2023 End: 05-20-2023 ambulatory Cullen Costa Other [facility] Other Start: 05-20-2023 Telephone encounter Cullen Costa [facility] Start: 05-07-2023 End: [facility]07[facility]: 12-24-2022 End: 12-24-2022 ambulatory GAGE SIMPSON [facility] Start: 12-10-2022 End: 12-10-2022 ambulatory Aziz Bakhous Other [facility] Other Start: 12-10-2022 Office outpatient visit 25 minutes Aziz Bakhous [facility] Start: 12-03-2022 End: 12-04-2022 ambulatory AZIZ BAKHOUS Facility:[facility] Start: 11-27-2022 End: 11-28-2022 ambulatory AZIZ BAKHOUS Facility:[facility] Start: 11-18-2022 End: 11-19-2022 ambulatory [facility] Start: 09-17-2022 End: 09-17-2022 ambulatory Aziz Bakhous Other [facility] Other Start: 09-17-2022 Office outpatient ne w 30 minutes Aziz Bakhous [facility] Start: 08-26-2022 End: [facility]: 07-25-2022 End: 07-25-[address] MARK INIGUEZ Facility:[facility] Start: 07-10-2022 End: 07-11-[address] TIGIST IGLESIAS Facility:[facility] Start: 06-27-2022 End: 06-27-2022 Emergency department patient visit Cullen Costa Facility:[facility] Start: 06-27-2022 End: 06-27-2022 Emergency department patient visit MD Cullen Costa Work Phone: [facility] Start: 06-24-2022 End: 06-25-2022 ambulatory GAGE SIMPSON Facility:[facility] Start: 04-29-2022 ambulatory MIS Herring lity:[facility] Start: 04-26-2022 End: 05-03-2022 ambulatory CULLEN COSTA Facility:[facility] Start: 04-25-2022 End: 05-09-2022 Evaluation and management of inpatient VAZQUEZ ALI Facility:[facility] Start: 04-24-2022 End: 04-25-2022 ambulatory VIOLETA VILLAREAL Facility:[facility] Start: 04-22-2022 End: 04-22-2022 ambulatory CYNTHIA PALMA Facility:[facility] Start: 04-15-2022 End: 04-15-[address] LI CINTRON Facility:[facility] Start: 04-04-2022 End: 04-05-2022 ambulatory MIS STORM Facility:[facility] Start: 04-02-2022 End: 04-02-[address] LI CINTRON Facility:[facility] Start: 04-01-2022 End: 04-01-[address] WALE Klein Facility:[facility] Start: 03-12-2022 End: 03-13-2022 ambulatory MIS STORM Facility:[facility] Start: 02-14-2022 End: 02-15-2022 ambulatory MIS STORM Facility:[facility] Start: 01-16-2022 End: 01-17-2022 ambulatory MIS STORM Facility:[facility] Start: 01-07-2022 End: 01-08-2022 ambulatory MIS STORM Facility:[facility] Start: 01-03-[address] LI CINTRON Fac ility:[facility] Start: 12-24-2021 End: 12-25-2021 ambulatory SHANNAN FITZPATRICK Facility:[facility] Start: 12-19-[address] ZE Montes y:[facility] Start: 12-13-2021 End: 12-17-2021 Evaluation and management of inpatient DR TIGIST IGLESIAS Facility:[facility] Start: 12-11-2021 End: 12-12-2021 ambulatory SHANNAN FITZPATRICK Facility:[facility] Start: 07-31-2021 End: 08-01-2021 Evaluation and management of inpatient REFERRED SELF Facility:[facility] Procedures Date Procedure Procedure Detail Performing Clinician Start: 06-27-2022 Plain chest X-ray MD Fito Costa Work Phone: Start: 12-14-2021 Insertion of Infusio n Device into Upper Vein, Percutaneous Approach DEDRA MENDOZA Start: 04-28-2014 General examination of patient Cullen Igor Other SARS Antigen (LFIA) MD Marly Costa Work Phone: Plan of Treatment Date Care Activity Detail Author Start: 06-27-2022 Duplex scan of lower limb veins US venous duplex LE BI [facility] Start: 06-27-2022 US Lower extremity v ein - bilateral [facility] Bacteria identified in Blood by Culture [facility] Patient Education Cellulitis (Sk in Infection), Adult (DC) [facility] Work Phone: Patient referral [facility] Work Phone: Payers Date Payer Category Payer Unknown [id number] 1957 Medicare [id number] 1959 Self-pay 1959 Unknown [id number] 1950 Unknown [id number] 2.16.8 [id number] 1950 Unknown [id number] 2.16.8 40.1.198782.3.579.2.647 1950 Unknown [id number] 2.16.8 40.1.934222.3.579.2.647 1950 Unknown [id number] 2.16.84 0.1.354023.3.579.2.593 1950 Unknown [id number] 2.16.84 0.1.934185.3.579.2.593 1950 Unknown [id number] 2.16.84 0.1.353818.3.579.2.593 1950 Unknown [id number] 2.16.84 0.1.985772.3.579.2.593 1950 Unknown [id number] 2.16.84 0.1.939801.3.579.2.593 1950 Unknown [id number] 2.16.84 0.1.275842.3.579.2.593 1950 Unknown [id number] 2.16.84 0.1.846565.3.579.2.593 1950 Unknown [id number] 2.16.84 0.1.831318.3.579.2.593 1950 Unknown [id number] 2.16.84 0.1.708905.3.579.2.593 1952 Unknown [id number] 2.16.84 0.1.444839.3.579.2.593 1950 Unknown [id number] 2.16.84 0.1.082877.3.579.2.593 1950 Unknown [id number] 2.16.84 0.1.612567.3.579.2.593 1952 Unknown [id number] 2.16.84 0.1.499313.3.579.2.593 1950 Unknown [id number] 2.16.84 0.1.787776.3.579.2.593 1950 Unknown [id number] 2.16.84 0.1.406523.3.579.2.593 1950 Unknown [id number] 2.16.84 0.1.917333.3.579.2.593 1950 Unknown [id number] 2.16.84 0.1.742779.3.579.2.593 1952 Unknown [id number] 2.16.84 0.1.270231.3.579.2.593 1950 Unknown [id number] 2.16.84 0.1.553949.3.579.2.593 1950 Unknown [id number] 2.16.84 0.1.551178.3.579.2.593 1950 Unknown [id number] 2.16.84 0.1.602269.3.579.2.593 1950 Unknown [id number] 2.16.84 0.1.302177.3.579.2.593 Unknown [id number] 2.16.8 40.1.670266.3.579.2.531 Social History Date Type Detail Facility Start: 06-27-2022 Tobacco smoking status NHIS Never smoked tobacco (finding) [facility] Start: 1950 Sex Assigned At Male F [facility] Sex Assigned At Sex Assigned At Bir [facility] Other Clinical Notes 08-02-2021 to 05-27-2023 Note Date & Type Note Facility 05-27-2023 Evaluation note Encounter Date Diagnosis Assessment Notes May, Chronic kidney disease, stage IV (severe) (ICD-10 - N18.4) Chronic kidney disease is likely from arterionephrosclerosis and cardiorenal syndrome type II. Baseline creatinine between 2.4-2.9 mg deciliter and GFR 20-24 ml/min depeding on the volume status and BP. UA is benign. No proteinuria or hematuria. Protein creatinine ratio 180-200 mg/g Volume status and blood pressure are well controlled. Continue same diuretics dose. I asked him to stay away from NSAIDs completely. I will follow-up with the patient 3-4 months May, Primary hypertension (ICD-10 - I10) Blood pressure medications admitted directed toward CHF. Blood pressure is well controlled edema is stable Advised low Na diet to avoid CHF exacerbation and to keep BP at target range May, Systolic congestive heart failure, unspecified HF chronicity (ICD-10 - I50.20) Patient follows with cardiology clinic in [facility] every 3 months. Has had seems compensating. Patient on spironolactone and Bumex. Patient follows low-salt diet ad weighs himself every day. May, Presence of permanent cardiac pacemaker (ICD-10 - Z95.0) Patient has history of complete heart block status post permanent pacemaker with defibrillator placement in 2020. And Eliquis and amiodarone in addition to metoprolol. Follows with cardiology clinic May, Vitamin D deficiency (ICD-10 - E55.9) 25-hydroxy vitamin D is still low.Will start cholecal 2000 U daily May, Hyperparathyroid ism (ICD-10 - E21.3) PTH was slightly high last visit. Likely from vitamin D deficiency. I will replace vitamin D first and recheck PTH level next visit May, Hyperuricemia (ICD-10 - E79.0) Uric acid is 10.0. will start allopurinl. May, Renal cyst, acquired (ICD-10 - N28.1) Renal ultrasound shows left side nonobstructive nephrolithiasis along with bilateral renal cortical simple cysts. Largest measures in the left 2.4 cm in the right 4.2 cm [facility] Other [id number] NoteNYHC III- Currently patient remains fairly euvolemic without exacerbation Continue GDMT- Aspirin, Lipitor, Isordil and hydralazine, Toprol and spironolactone Diuretic therapy- Remains on Bumex 3 mg twice daily Monitor daily weights, I&O, fluid restriction 1.5-2L/day, renal function and electrolytes- [facility] with nephrology as scheduledUnPrem[facility]-2023 NoteCoronary artery disease is stable Continue GDMT- Aspirin, Lipitor, Toprol, Isordil and hydralazine continue risk factor modifications- heart healthy diet, regular exercise as tolerated and continue all medications.[facility] 05-07-2023 NoteCurrently blood pressure well controlled 110/62 continue all medicationsUnPremier [facility]08-30-2023 Note Currently stable without concerning symptomsUnPremier Health [facility] 05-07-2023 [id number] VASc= 4 (age, htn, chf, CAD) Continue anticoagulation with eliquis Monitor for s/s of bleeding Continue toprol- rate controlledUnPremier Health [facility]08-30-2023 NoteUTP CARDIOLOGY PROGRESS NOTE HPI: Man Patel is a 73 y.o. male here for routine 6 months follow-up Patient here for 6 mo follow up chronic systolic heart failure, PAF, and CAD. He is due in Jun 2023 for routine device interrogation. He's doing very well he states. Denies chest pain, SOB, palpitations, and bleeding on Eliquis. Says he is able to go up 13 stairs now instead of just 2-3. Denies SOB while doing this. Had labs in November 2022. Today patient states overall he has been feeling better he is trying to increase his activity and exercise regimen where he has been able to go up and down a full flight of stairs without stopping, and has starting weight regimen. Reports typical leg swelling, and shortness of breath with exertion. Denies chest pain, orthopnea or bleeding tendencies. Review of Systems Cardiovascular: Positive for leg swelling. Hematologic/Lymphatic: Bruises/bleeds easily. All other systems reviewed and are negative. Previous HPI- HPI He is a 72-year-old man with prior history of coronary disease status post bypass surgery in the past, cardiac catheterization in 2016 showed no targets for revascularization. He also has history of hypertension, morbid obesity, chronic systolic heart failure. He has history of atrial flutter status post cardioversion in 2016. He also has history of atrial fibrillation. In July 2021 he was admitted with syncope and was found to be in complete heart block. He underwent dual-chamber pacemaker on 07/31/2021. Known h/o CAD s/p CABG x3, systolic heart failure EF 35-40%- 08/2020, HTN, morbid obesity. He has CKD 4. He follows with nephrology. Currently he reports that he has no angina. He has mild shortness of breath on exertion NYHA class II. He has mild lower extremity swelling. Visit Vitals BP 110/62 (BP Location: Left arm, Patient Position: Sitting) Pulse 60 Ht 1.702 m (5' 7 ) Wt 122 kg (269 lb) SpO2 98% BMI 42.13 kg/m??? Smoking Status Never BSA 2.4 m??? No Known Allergies Medications: Current Outpatient Medications on File Prior to Visit Medication Sig Dispense Refill amiodarone (Pacerone) 200 mg tablet TAKE 1 TABLET BY MOUTH EVERY DAY FOR 30 DAYS 90 tablet 3 apixaban (Eliquis) 5 mg tablet Take 1 tablet by mouth in the morning and at bedtime. aspirin 81 mg EC tablet Take 81 mg by mouth in the morning. atorvastatin (Lipitor) 80 mg tablet TAKE 1 TABLET BY MOUTH EVERY DAY 90 tablet 3 bumetanide (Bumex) 1 mg tablet TAKE 3 TABLETS BY MOUTH TWICE A DAY 540 tablet 3 hydrALAZINE (Apresoline) 25 mg tablet Take 1 tablet (25 mg) by mouth in the morning and at bedtime. 180 tablet 3 isosorbide dinitrate (Isordil) 10 mg tablet Take 10 mg by mouth in the morning, at noon, and at bedtime. metoprolol succinate XL (Toprol-XL) 25 mg 24 hr tablet Take 12.5 mg by mouth in the morning. Do not crush or chew. spironolactone (Aldactone) 25 mg tablet TAKE 1 TABLET BY MOUTH EVERY DAY 90 tablet 3 apixaban (Eliquis) 5 mg tablet Take 1 tablet (5 mg) by mouth in the morning and at bedtime. 14 tablet 0 [DISCONTINUED] bumetanide (Bumex) 1 mg tablet Take 1 mg by mouth in the morning and at bedtime. [DISCONTINUED] bumetanide (Bumex) 2 mg tablet Take 2 mg by mouth in the morning and at bedtime. [DISCONTINUED] hydrALAZINE (Apresoline) 10 mg tablet Take 10 mg by mouth in the morning, at noon, and at bedtime. No current facility-administered medications on file prior to visit. Physical Exam: Constitutional: Appearance: Normal appearance. Without apparent distress, Obese, chronically ill HENT: Head: Normocephalic and atraumatic. Nose: Nose normal. Mouth/Throat: Mouth: Mucous membranes are moist. Eyes: Extraocular Movements: Extraocular movements intact. Conjunctiva/sclera: Conjunctivae normal. Neck: Vascular: No JVD. Cardiovascular: Rate and Rhythm: Normal rate and regular rhythm. Pulses: Dorsalis pedis pulses are 2 on the right side and 2on the left side. Posterior tibial pulses are 2 on the right side and 2 on the left side. Heart sounds: Normal heart sounds, S1 normal and S2 normal. Pulmonary: Effort: Pulmonary effort is normal. Breath sounds: Normal breath sounds. Abdominal: General: Bowel sounds are normal. Palpations: Abdomen is soft. Musculoskeletal: Right lower le+ pitting edema. Left lower le+ pitting edema. Skin: General: Skin is warm and dry. BLE xerosis and hemosideran skin changes Capillary Refill: Capillary refill takes less than 2 seconds. Neurological: General: No focal deficit present. Mental Status: he is alert and oriented to person, place, and time. Psychiatric: Mood and Affect: Mood normal. Behavior: Behavior normal. Thought Content: Thought content normal. Judgment: Judgment normal. Labs: Renal function stable in November 2022 Blood testing 06/27/2022: Hemoglobin 12.9, platelets 163, INR 1.5, potassium 3.8, BNP 367, EGFR 26, BUN 40, creatini (more content not included)...[facility]08-30-2023 NotePatient here for 6 mo follow up chronic systolic heart failure, PAF, and CAD. He is due in Jun 2023 for routine device interrogation. He's doing very well he states. Denies chest pain, SOB, palpitations, and bleeding on Eliquis. Says he is able to go up 13 stairs now instead of just 2-3. Denies SOB while doing this. Had labs in November 2022. Review of Systems Cardiovascular: Positive for leg swelling. Hematologic/Lymphatic: Bruises/bleeds easily. All other systems reviewed and are negative.[facility] 12-10-2022 Evaluation note* Encounter Date Diagnosis Assessment Notes Treatment Notes Treatment Clinical Notes Dec, Chronic kidney disease, stage IV (severe) (ICD-10 - N18.4) Chronic kidney disease is likely from arterionephrosclerosis and cardiorenal syndrome type II. Baseline creatinine between 2.2 to 2.4 mg deciliter and GFR 22 to 24 mm/min. UA is benign. No proteinuria or hematuria. Protein creatinine ratio 200 mg/g Volume status and blood pressure are well controlled. Continue same diuretics dose. I asked him to stay away from NSAIDs completely. I will follow-up with the patient 3-4 months Dec, Primary hypertension (ICD-10 - I10) Blood pressure medications admitted directed toward CHF. Blood pressure is well controlled Dec, Systolic congestive heart failure, unspecified HF chronicity (ICD-10 - I50.20) Patient follows with cardiology clinic in [facility] every 3 months. Has had seems compensating. Patient on spironolactone and Bumex. Patient follows low-salt diet hours himself every day. Dec, Presence of permanen t cardiac pacemaker (ICD-10 - Z95.0) Patient has history of complete heart block status post permanent pacemaker with defibrillator placement in 2020. And Eliquis and amiodarone in addition to metoprolol. Follows with cardiology clinic Dec, Vitamin D deficiency (ICD-10 - E55.9) 25-hydroxy vitamin D is low. As the patient take [id number] vitamin D supplement 2000 unit daily Dec, Hyperparathyroidism (ICD-10 - E21.3) PTH slightly at 66. Likely from vitamin D deficiency. I will replace vitamin D first and recheck PTH level next visit Dec, Hyperuricemia (ICD-1 0 - E79.0) Uric acid slightly high at 9.0 advised the patient to follow low animal protein diet. No gout attack. I will recheck uric acid next visit Dec, Renal cyst, acquired (ICD-10 - N28.1) Renal ultrasound shows left side nonobstructive nephrolithiasis along with bilateral renal cortical simple cysts. Largest measures in the left 2.4 cm in the right 4.2 cm [facility] Other 03-13-2023 NoteUT Cardiology - [facility] Subjective Man Patel is a 72 y.o. year old male patient being seen for Congestive Heart Failure and Atrial Fibrillation He has not been admitted to a hospital since Jul 2022. Denies chest pain, SOB, and bleeding on Eliquis. Says he's doing much better. Patient Active Problem List Diagnosis Chronic combined systolic and diastolic heart failure (CMS/HCC) Essential hypertension Paroxysmal atrial fibrillation (CMS/HCC) Arteriosclerosis of arterial coronary artery bypass graft Morbid obesity (CMS/HCC) Family History Problem Relation Name Age of Onset Coronary artery disease Mother Hyperlipidemia Mother Hypertension Mother Stroke Mother Diabetes Mother Coronary artery disease Father Hyperlipidemia Father Hypertension Father Social History Tobacco Use Smoking status: Never Smokeless tobacco: Never Substance Use Topics Alcohol use: Never HPI He is a 72-year-old man with prior history of coronary disease status post bypass surgery in the past, cardiac catheterization in 2016 showed no targets for revascularization. He also has history of hypertension, morbid obesity, chronic systolic heart failure. He has history of atrial flutter status post cardioversion in 2016. He also has history of atrial fibrillation. In July 2021 he was admitted with syncope and was found to be in complete heart block. He underwent dual-chamber pacemaker on 07/31/2021. Known h/o CAD s/p CABG x3, systolic heart failure EF 35-40%- 08/2020, HTN, morbid obesity. He has CKD 4. He follows with nephrology. Currently he reports that he has no angina. He has mild shortness of breath on exertion NYHA class II. He has mild lower extremity swelling. Review of Systems Cardiovascular: Positive for leg swelling. Hematologic/Lymphatic: Bruises/bleeds easily. All other systems reviewed and are negative. Objective Visit Vitals BP 114/66 (BP Location: Left arm, Patient Position: Sitting) Pulse 60 Ht 1.702 m (5' 7 ) Wt 121 kg (266 lb) SpO2 98% BMI 41.66 kg/m??? Smoking Status Never BSA 2.39 m??? Physical Exam Constitutional: Appearance: He is well-developed. He is obese. He is not ill-appearing. HENT: Head: Normocephalic and atraumatic. Nose: Nose normal. Eyes: General: No scleral icterus. Pupils: Pupils are equal, round, and reactive to light. Neck: Thyroid: No thyromegaly. Vascular: No JVD. Cardiovascular: Rate and Rhythm: Normal rate and regular rhythm. Pulses: Radial pulses are 2+ on the right side and 2+ on the left side. Heart sounds: Normal heart sounds. No murmur heard. No friction rub. No gallop. Pulmonary: Effort: Pulmonary effort is normal. No respiratory distress. Breath sounds: Normal breath sounds. No wheezing or rales. Chest: Chest wall: No tenderness. Abdominal: General: Bowel sounds are normal. There is no distension. Palpations: Abdomen is soft. Tenderness: There is no abdominal tenderness. Musculoskeletal: General: No swelling. Cervical back: Neck supple. Right lower le+ Pitting Edema present. Left lower le+ Pitting Edema present. Skin: General: Skin is warm and dry. Neurological: General: No focal deficit present. Mental Status: He is alert and oriented to person, place, and time. Psychiatric: Mood and Affect: Mood normal. Behavior: Behavior is cooperative. Judgment: Judgment normal. Allergies No Known Allergies Medications Current Outpatient Medications: amiodarone (Pacerone) 200 mg tablet, Take 200 mg by mouth in the morning., Disp: , Rfl: apixaban (Eliquis) 5 mg tablet, Take 1 tablet (5 mg) by mouth in the morning and at bedtime., Disp: 14 tablet, Rfl: 0 aspirin 81 mg EC tablet, Take 81 mg by mouth in the morning., Disp: , Rfl: atorvastatin (Lipitor) 80 mg tablet, Take 80 mg by mouth at bedtime., Disp: , Rfl: bumetanide (Bumex) 1 mg tablet, Take 1 mg by mouth in the morning and at bedtime., Disp: , Rfl: bumetanide (Bumex) 2 mg tablet, Take 2 mg by mouth in the morning and at bedtime., Disp: , Rfl: hydrALAZINE (Apresoline) 10 mg tablet, Take 10 mg by mouth in the morning, at noon, and at bedtime., Disp: , Rfl: isosorbide dinitrate (Isordil) 10 mg tablet, Take 10 mg by mouth in the morning, at noon, and at bedtime., Disp: , Rfl: metoprolol succinate XL (Toprol-XL) 25 mg 24 hr tablet, Take 12.5 mg by mouth in the morning. Do not crush or chew., Disp: , Rfl: spironolactone (Aldactone) 25 mg tablet, Take by mouth in the morning., Disp: , Rfl: Recent Labs No visits with results within 6 Month(s) from this visit. Latest known visit with results is: Hospital Outpatient Visit on 04/26/2022 Component Date Value Total Hemoglobin 04/29/2022 8.4 Oxyhemoglobin 04/29/2022 74.0 Carboxyhemoglobin 04/29/2022 3 Methemoglobin 04/29/2022 1 Total Hemoglobin 04/30/2022 12.0 Oxyhemoglobin 04/30/2022 69.0 Carboxyhemoglobin 04/30/2022 2 Meth (more content not included)...[facility]01-10-2023 Evaluation note* Encounter Date Diagnosis Assessment Notes Treatment Notes Treatment Clinical Notes Sep, Chronic kidney disease, stage IV (severe) (ICD-10 - N18.4) Chronic kidney disease is likely from arterionephrosclerosis and cardiorenal syndrome type II. I did have recent renal function panel. In April 2022 GFR was 22 mm/min. Patient at risk for worsening kidney function from low ejection fraction and being on diuretics. I will follow-up with the patient in 2 months. I will check UA along with protein creatinine ratio. I will check renal ultrasound. I will check PTH along with calcium and phosphorus. I asked the patient to continue same diuretics dose and to weigh himself every day. I asked the patient to follow low-salt diet. I asked him to stay away from NSAIDs completely. I will follow-up with the patient 2 months Sep, Primary hypertension (ICD-10 - I10) Blood pressure medications admitted directed toward CHF. Blood pressure is well controlled Sep, Systolic congestive heart failure, unspecified HF chronicity (ICD-10 - I50.20) Patient follows with cardiology clinic in [facility] every 3 months. Has had seems compensating. Patient on spironolactone and Bumex. Patient follows low-salt diet hours himself every day. Sep, Presence of permanent cardiac pacemaker (ICD-10 - Z95.0) Patient has history of complete heart block status post permanent pacemaker with defibrillator placement in 2020. And Eliquis and amiodarone in addition to metoprolol. Follows with cardiology clinic [facility] Other [id number]: 4 (age, htn, chf, CAD) -Continue amiodarone and eliquis PFT from 08/14/2020- normal spirometry and diffusion capacity labs from 04/02/2021- thyroid function normal and liver function normal: [facility]12-21-2022 NoteHypertension is stable today -continue hydralazineUnPremier [facility]12-[facility] Note-had recent hospital amdission and follow ups for acute exacerbation -he is down 7lbs since last visit and appears euvolemic with improved symptoms -he will follow up in 3 months per his preference despite my recommendation of coming in sooner but will call clinic with any significant weight or symptoms similar to his recent event. He will also inform us of any changes his cracker off may make or recommend in his appointment in September -continue gdmt: bumex 3mg BID, toprol xl, aldactone 25mg daily, limited medicatin therapy due to kidney dysfunctionUnPremier Health [facility] 08-28-2022 NoteCoronary artery disease is stable and has had no recent concerning symptoms -continue lipitor 80mg and isosorbide 10mgUnPremier [facility] 08-26-2022 NoteUT Cardiology Consult Note Reason for visit: 1 month follow up regarding fluid status and CHF HPI: Man Patel is a 72 y.o. year old with past medical history of of CAD s/p CABG, cardiac cath in 2015 with no targets for revacularization, htn, morbid obesity, chronic systolic HF and grade 2 diastolic dysfunction with reduced EF of 40% as of 04/26/2022 He is here for follow up regarding significant weight gain documented in past visits below since July 2022 with symptoms of SOB, LE edema and recent hospital admission on 07/10. Since his last visit he is down 7 more pounds. He states his shortness of breath is significantly improved and no longer feels short of breath. He states his lower extremity edema has improved as well since his last visit and he has been tolerating his medications. Have informed him that recently the device nurse made a note and mention that patient had not connected his device in 60 days as of 07/10/2022 and 68 days from then he would be deactivated. He states he unplugged it a while ago because he had not heard anything and he still did not need to be plugged. He states he will talk again when he goes home today to avoid deactivation of his home monitor. He stated he does not want to come back until at least October due to the weather and not wanting to leave his house during cold and snowy weather. I informed him I prefer him to come back within 8 weeks just to be sure everything stayed the same did not have any acute concerns. He states he will call and let us know if this does happen or if he has significant weight gain. He was supposed to see a cracker off prior to this visit but states they pushed it back to September so he does not have an update from his cracker off regarding kidney function and additional recommendations. Review of Systems Constitutional: Negative for malaise/fatigue. Cardiovascular: Negative for chest pain, dyspnea on exertion (limited in activity, limited assessment), leg swelling, near-syncope, orthopnea and palpitations. Respiratory: Negative for shortness of breath and sleep disturbances due to breathing. Neurological: Negative for dizziness, headaches and light-headedness. All other systems reviewed and are negative. ------ Previous HPI per Dr. Iniguez 07/22/2022: Chief Complaint: Patient here for 2 week follow up CHF and increasing LE edema. He was sent to ED on 07/[address] Lambert. Still denies chest pain, SOB, and bleeding on Eliquis. Taking total of 3mg of bumex BID. HPI: Man Patel is a 72 y.o. male with prior history of coronary disease status post bypass surgery in the past, cardiac catheterization in 2016 showed no targets for revascularization. He also has history of hypertension, morbid obesity, chronic systolic heart failure The patient states that he feels improved since his last visit; he has decreased in weight by about 8 pounds per his scale at home. His shortness of breath is better. His lower extremity edema has improved. He denies chest pain, he sleeps in a recliner. He denies paroxysmal external dyspnea Previous HPI per Dr. Lambert 07/10/2022: HPI: Man Patel is a 72 y.o. male with past medical history including coronary disease status post bypass surgery, hypertension, morbid obesity, and chronic systolic heart failure. He presents to Cardiology clinic for follow up. Per patient's report, and per report of home healthcare nursing, patient has had a weight gain of over 14lbs over the past 2.5 weeks. He was noted crackles and wheezing in bilateral lungs, in addition to significant lower extremity swelling. His diuretics have been increased on outpatient basis, and although his kidney functions continue to worsen, he has not noticed any improvement in symptoms. He denies any chest pain. He does report orthopnea. He reports adherence to his medication regimen and denies any dietary indiscretions. PMH: Past Medical History: Diagnosis Date Atrial fibrillation ([facility]) CHF (congestive heart failure) ([facility]) Chronic kidney disease Coronary artery disease Hyperlipidemia Hypertension PSH: Past Surgical History: Procedure Laterality Date CARDIAC CATHETERIZATION CARDIOVERSION CORONARY ARTERY BYPASS GRAFT INSERT / REPLACE / REMOVE PACEMAKER SH: Social Determinants of Health Tobacco Use: Low Risk Smoking Tobacco Use: Never Smokeless Tobacco Use: Never Passive Exposure: Not on file Alcohol Use: Not on file Financial Resource Strain: Not on file Food Insecurity: Not on file Transportation Needs: Not on file Physical Activity: Not on file Stress: Not on file Social Connections: Not on file Intimate Partner Violence: Not on file Depressio (more content not included)...[facility] 08-26-2022 NotePt not having SOB. Swelling is better. Weight is down Review of Systems Cardiovascular: Positive for leg swelling.[facility] 05-07-2022 NoteMR#: [id number] [facility] Pt. Name: Man Patel Admitted: 04/25/2022 Discharged: 05/07/2022 Date of : 1950 Physician: Taylor Howard MD DISCHARGE SUMMARY DISCHARGE ATTENDING: Taylor Howard MD PRIMARY CARE PHYSICIAN: Cullen Costa MD PRINCIPAL DIAGNOSES: 1. Acute hypoxic respiratory failure, multifactorial secondary to acute systolic congestive heart failure along with pulmonary hypertension. 2. Pulmonary hypertension, likely type 2 with elevated post capillary pressures. 3. Acute decompensated congestive heart failure with ejection fraction of 40%. 4. Acute kidney injury on chronic kidney disease, stage 3 to 4, likely cardiorenal. 5. Coronary artery disease, status post coronary artery bypass graft x3. 6. Complete heart block, status post dual-chamber pacemaker. 7. Paroxysmal atrial fibrillation, currently in sinus rhythm, and on Eliquis. 8. Chronic microcytic anemia. 9. Controlled essential hypertension. PROCEDURES THIS ADMISSION: Included right heart catheterization x2 on 04/29 and 05/03, insertion of Eupora-Eleazar catheter and removal, and echocardiogram. CONSULTATIONS: Included Cardiology, Nephrology, vascular service and medical ICU. HOSPITAL COURSE: This patient is a 72-year-old male, who presents to the [facility] as a transfer from [facility] with complaints of worsening shortness of breath and weeping edema. The patient was accepted for transfer by the [facility] Cardiology Service for failed outpatient treatment of acute on chronic CHF. The patient initially had a baseline creatinine of about 1.8 with CKD stage 3 to 4. Admitting creatinine was 2.8 with a BUN of 61, diagnosing an CHIOMA on a CKD, and BNP of 15,000. The patient was having dyspnea at rest as well as orthopnea as well as weeping lower extremity edema. Cardiology was following with the patient and 2 right heart catheterizations were completed, revealing severe decompensated CHF with a wedge pressure of 30 and right atrial pressure severely elevated at 16, with moderate pulmonary hypertension. The patient then underwent a repeat right heart catheterization, which showed moderately elevated right-sided heart pressures as well as elevated transpulmonary gradient suggestive of pre and post-capillary pulmonary hypertension with a wedge pressure of 21. Nephrology is also following with the patient and he was being aggressively diuresed with final diuretic recommendations of Bumex 3 mg twice daily as well as spironolactone 25 mg daily. Further more recommendations for his hypertension and CHF optimization medication regimen include spironolactone 25 mg daily, metoprolol succinate 12.5 mg daily, Isordil 10 mg 3 times daily, hydralazine 10 mg 3 times daily, and again Bumex 3 mg twice daily as well as amiodarone 200 mg daily, Eliquis 5 mg twice daily, aspirin 81 mg daily, Lipitor 80 mg daily, and this was all provided to the patient on his discharge paperwork, and he is to have a very close followup with Cardiology, which is scheduled for the patient with Dr. Cintron and repeat lab work prior to followup. The patient will also be following up with our Nephrology service as well. His renal function was improving with his creatinine stabilizing around 2. Further recommendations include a 2 L fluid restriction and sodium chloride 1.5 g per day as well as daily weights, and to monitor for any abnormal weight gains. This was all educated to the patient and provided on his discharge instructions. At the time of this dictation, the patient is in no apparent distress. His labs and vitals are stable. He does still remain on 3 L nasal cannula and does continue to have some edema. However, he has been able to significantly diuresed during this admission and is stable at this time for discharging to a long term facility with close followup with Cardiology and Nephrology as well as labs in the outpatient setting with continued monitoring of his intake, output, and daily weights. PHYSICAL EXAMINATION: GENERAL: At the time of discharge, the patient is in no apparent distress. He is alert and oriented x3. LUNGS: Clear to auscultation bilaterally, remaining on 3 L nasal cannula. HEART: Regular rhythm, regular rate. ABDOMEN: Soft, nontender, and nondistended. EXTREMITIES: He does have 2 to 3+ pitting lower extremity edema with chronic wounds to bilateral lower extremities that are noninfected appearing. DISPOSITION: The patient is being discharged to a long term facility. Please note that an addendum may be added to this discharge dictation as the patient's discharge is currently pending placement at this time. MEDICATIONS: As per medication reconciliation and as per above. DISCHARGE INSTRUCTIONS: Activity as tolerated with PT and OT at facility. Heart healthy, low-cholesterol diet with (more content not included)...[facility]11-25-2021 NoteMR#: [id number] [facility] Pt. Name: Man Patel Admitted: 07/31/2021 Discharged: 08/01/2021 Date of : 1950 Physician: Cyrus Ashley MD DISCHARGE SUMMARY DISCHARGING PHYSICIAN: Dr. Cyrus Ashley. PRIMARY CARE PHYSICIAN: Dr. Cullen Costa. DISCHARGE DIAGNOSES: 1. Complete heart block status post dual-chamber pacemaker. 2. Type 2 non-ST elevation myocardial infarction, likely secondary to decompensated heart failure secondary to complete heart block. 3. Congestive heart failure with reduced ejection fraction of 35% to 40%, likely secondary to complete heart block. 4. Coronary artery disease status post coronary artery bypass graft in (2015). 5. Paroxysmal atrial fibrillation, on Eliquis and amiodarone. 6. Acute kidney injury on chronic kidney disease, baseline creatinine unknown. 7. Hypertension, controlled. 8. Unspecified hyperlipidemia. 9. Obesity. CONSULTS: Cardiology and Nephrology. PROCEDURES AND IMAGING: Dual-chamber pacemaker placement. HOSPITAL COURSE: This is a 71-year-old male with past medical history significant for coronary artery disease status post CABG in (2000), hypertension, paroxysmal atrial fibrillation on amiodarone and Eliquis, unspecified hyperlipidemia, obesity, and heart failure with reduced ejection fraction, who initially presented to [facility] for bradycardia. He was having syncopal episodes, where he was found to have heart rate in the 30s. Atropine was given at [place] without any help. His blood pressure was stable at that time and was transferred to [facility]. On arrival, his EKG revealed complete heart block with heart rate ranging from mid 20s to low 30s. His blood pressure was low in 90s systolic. He was started on dopamine infusion without any change. He was started on transcutaneous pacing. Stat bedside echocardiogram was done, which revealed no significant effusion and ejection fraction within lower limits of normal. He was urgently taken for permanent pacemaker placement. He tolerated the procedure well. His symptoms were resolved. Blood pressure was stable. He was also found to have acute kidney injury, likely on chronic kidney disease, baseline creatinine unknown. The patient's creatinine at the time of presentation was 2.86. In July 2020, creatinine was 1.93. Nephrology was consulted and recommended gentle hydration, and followup as an outpatient close to [place] where the patient is from and interested to follow up with Nephrology in his area. He was instructed to have BMP done on Friday and follow up with primary care physician and Nephrology since the patient was eager to go home. He denies any chest pain, shortness of breath, dizziness, or diaphoresis at this time. He also denies any fever, chills, nausea, vomiting, or diarrhea. He has no other complaints. No additional medication changes were made. MEDICATION RECONCILIATION: Per med rec in computer. FOLLOWUP: 1. Follow up with primary care physician, Dr. Costa, in 1 week at [facility]. 2. Follow up with [facility] Heart on 08/10/2021 for wound/pacemaker check at 11:20 a.m. 3. Follow up with [facility] Cardiovascular on 09/04/2021 at 2:[address] [place] [address] Cintron. 4. Follow up with Nephrology around [place]. TIME SPENT: Time spent for the discharge summary and coordination of care is 39 minutes. Electronically Signed by: Cyrus Ashley MD 08/03/2021 09:08 A Cyrus Ashley MD I personally saw this patient on the day of the encounter, performed the simms portion(s) of the service and participated in the management and confirm the resident's documentation. Please note there may be an additional personal documentation from me. Date Dict: 08/02/2021/04:43 P/Derick Johnson CNP Date Trans: 08/02/2021 05:18 P/surekha [id number] [facility]Evaluation noteNo assessment information availableMercy Health [facility]iff[facility] Ctr Work Phone: Evaluation noteNo InformationNort myBarrister Other History general Narrative - Reported* Type Description Date Medical History varicose veins Medical History Hypertension Medical History obesity Medical History thrombophlebitis Medical History possible DVT Medical History CAD Medical History ACUTE HYPOXIC RESPIRATORY FAILUR E Surgical History triple bypass 03/2000 Hospitalization History bypass Hospitalization History EDEMIA 06/29 Hospitalization History EDEMIA 04/2022 [facility] Other History general Narrative - Reported* Type Description Date Medical History varicose veins Medical History Hypertension Medical History obesity Medical History thrombophlebitis Medical History possible DVT Medical History CAD Medical History ACUTE HYPOXIC RESPIRATORY FAILUR E Surgical History triple bypass 03/2000 Hospitalization History bypass Hospitalization History EDEMA 06/29 Hospitalization History EDEMA 04/2022 [facility] Other Hospital Discharge instructions Additional Instructions Take antibiotics as instructed until gone Elevate lower extremities You have blood cultures pending Follow-up with home care your primary care doctor call tomorrow for appointment Return here if any problems persist or worsen including fever, chills, increased redness, increased swelling or any other concernMercy Health [facility]iff[facility] Ctr Work Phone: Summary Purpose Family History No Family History Records FoundNo Family History Records FoundNo Family History Records FoundNo Family History Records Found Advance Directives No Advanced Directives Records Found Advance Directive Response Recorded Date/ Time Advance Directives No June 27, 2022 4:21pm Chief Complaint and Reason for Visit Chief Complaint bilateral leg swelli ng Additional Source Comments (unrecognized sect ion and content) No Status Records FoundNo Status Records FoundNo Status Records FoundNo Status Records Found INFORMATION SOURCE (unrecogn ized section and content) DATE CREATED AUTHOR 05/15/2022 [facility] DATE CREATED AUTHOR AUTHOR'S ORGANIZ ATION 07/05/2022 [facility] DATE CREATED AUTHOR AUTHOR'S ORGANIZ ATION 12/11/2022 [facility] DATE CREATED AUTHOR AUTHOR'S ORGANIZ ATION 07/29/2023 [facility] Care Teams (unrecognized sec tion and content) Team Status: Inactive Member Role Status Dates Cullen Costa MD Primary Care Provider Active Balwinder Chavarria , Emergency Provider Active Team Status: Active Member Role Status Dates Cullen Costa MD Primary Care Provider Active Goals (unrecognized section and content) Goals may be documented in a n alternate sectionNo InformationNo InformationNo InformationNo InformationNo Information REASON FOR VISIT (unrecogniz ed section and content) RENAL CKD 4RENAL 2 month Fol low upRefillRENAL 4 month Follow uprefill FOR RECORDS PERTAINING TO PATIENTS WHO ARE OR HAVE BEEN ENROLLED IN A CHEMICAL DEPENDENCY/SUBSTANCEABUSE PROGRAM, SOME INFORMATION MAY BE OMITTED. This clinical summary was aggregated from multiple sources. Caution should be exercised in using it in the provision of clinical care. This summary normalizes information from multiple sources, and as a consequence, information in this document may materially change the coding, format and clinical context of patient data. In addition, data may be omitted in some cases. CLINICAL DECISIONS SHOULD BE BASED ON THE PRIMARY CLINICAL RECORDS. [facility] [facility]. provides no warranty or guarantee of the accuracy or completeness of information in this document.
== END 2023-08-14 09:31 | disposition home or self-care (01) ==
PROVIDERS: PCP Family Medicine; Visit Provider Internal Medicine Nephrology
DX: Z79.899 Other long term (current) drug therapy (principal); N18.4 Chronic kidney disease, stage 4 (severe); I50.20 Unspecified systolic (congestive) heart failure; I13.0 Hypertensive heart and chronic kidney disease with heart failure and stage 1 through stage 4 chronic kidney disease, or unspecified chronic kidney disease; Z95.0 Presence of cardiac pacemaker; E55.9 Vitamin D deficiency, unspecified; E21.3 Hyperparathyroidism, unspecified; E79.0 Hyperuricemia without signs of inflammatory arthritis and tophaceous disease; N28.1 Cyst of kidney, acquired
CPT/HCPCS: 36415; 80053; 81003; 82306; 82570; 83735; 83970; 84100; 84156; 84439; 84443; 84550; 85027

== ENCOUNTER 2023-08-14 09:35 | Outpatient (OUT) | payer MEDICARE, OTHER, SELFPAY ==
[2023-08-14 11:58] LABS: Free T4 1.12 ng/dL (0.76-1.46)
== END 2023-08-14 09:36 | disposition home or self-care (01) ==
LOC: LAB 10:12
PROVIDERS: PCP Family Medicine; Visit Provider Nurse Practitioner
DX: Z79.899 Other long term (current) drug therapy (principal)
CPT/HCPCS: 36415; 84439; 84443

== ENCOUNTER 2023-12-17 11:11 | Outpatient (OUT) | payer MEDICARE, OTHER, SELFPAY ==
[2023-12-17 12:22] LABS: Hematocrit 46.1 % (42.0-54.0); Hemoglobin 14.9 g/dL (14.0-18.0); Mean Corpuscular HGB Conc 32.3 g/dL (29.9-35.2); Mean Corpuscular Hemoglobin 29.6 pg (25.9-34.0); Mean Corpuscular Volume 91.5 fL (80.0-94.0); Mean Platelet Volume 10.8 fL (9.5-13.5); Platelet Count 195 10^3/uL (150-450); Red Blood Count 5.04 10^6/uL (4.70-6.10); Red Cell Distribution Width 15.6 % (11.0-15.0); White Blood Count 7.3 10^3/uL (4.0-11.0)
[2023-12-17 13:04] LABS: Alanine Aminotransferase 21 U/L (16-63); Albumin Globulin Ratio 0.9; Albumin Level 3.9 g/dL (3.4-5.0); Alkaline Phosphatase 131 U/L (46-116); Anion Gap 16.9; Aspartate Amino Transferase 20 U/L (15-37); BUN Creatinine Ratio 22.1; Bilirubin Total 1.1 mg/dL (0.2-1.0); Calcium 9.5 mg/dL (8.5-10.1); Carbon Dioxide 26.5 mmol/L (21.0-32.0); Chloride 100 mmol/L (98-107); Estimated GFR (African America 26 (>=60); Estimated GFR (Non-African Ame 22 (>=60); Globulin 4.2 g/dL; Glucose 112 mg/dL (74-106); Magnesium 2.9 mg/dL (1.8-2.4); Phosphorus 3.7 mg/dL (2.6-4.7); Potassium 4.4 mmol/L (3.5-5.1); Sodium 139 mmol/L (136-145); Total Protein 8.1 g/dL (6.4-8.2); Uric Acid 7.8 mg/dL (3.5-7.2)
[2023-12-18 11:09] LABS: PTH, Intact 140 pg/mL (15-65)
== END 2023-12-17 11:12 | disposition home or self-care (01) ==
LOC: LAB 11:13
PROVIDERS: PCP Family Medicine; Visit Provider Internal Medicine Nephrology
DX: I12.9 Hypertensive chronic kidney disease with stage 1 through stage 4 chronic kidney disease, or unspecified chronic kidney disease (principal); N18.4 Chronic kidney disease, stage 4 (severe); I50.20 Unspecified systolic (congestive) heart failure; Z95.0 Presence of cardiac pacemaker; E55.9 Vitamin D deficiency, unspecified; E21.3 Hyperparathyroidism, unspecified; E79.0 Hyperuricemia without signs of inflammatory arthritis and tophaceous disease; N28.1 Cyst of kidney, acquired
CPT/HCPCS: 36415; 80053; 82306; 82570; 83735; 83970; 84100; 84156; 84550; 85027

== ENCOUNTER 2024-04-06 12:47 | Outpatient (OUT) | payer MEDICARE, OTHER, SELFPAY ==
--- NOTE | 2024-04-06 13:00 | CA_ITS ---
Patient Name: MAN ALEGRIA MR#: [id number] : 1950 Exam Date: 04/06/2024 Ordering Doctor: DR LI CINTRON M.D. ECHOCARDIOGRAM REPORT PROCEDURE: CA ECHO DOPPLER COMPLETE INDICATIONS: Heart failure with reduced ejection fraction, CABGx3, AICD COMPARISON: None. DESCRIPTION: COMPLETE ECHOCARDIOGRAM Real-time transthoracic echocardiography with 2D, M-mode, spectral and color flow Doppler performed. QUALITY: Technical quality was limited by poor sound transmission. LEFT VENTRICLE: Normal chamber size. Normal left ventricular wall thickness. Systolic function appears moderately to severely reduced. Segmental wall motion cannot be accurately assessed due to poor sound transmission. LV EF: Moderately to severely reduced left ventricular ejection fraction, (30-35%). DIASTOLIC: Grade II diastolic dysfunction. ATRIAL SEPTUM: Visually appears intact. LEFT ATRIUM: Severe dilatation. RIGHT ATRIUM: Moderate dilatation. RIGHT VENTRICLE: Mild dilatation. Normal systolic function. TRICUSPID VALVE: Normal mobility and thickness. No stenosis with trivial regurgitation. MITRAL VALVE: Normal mobility and thickness. No evidence of mitral valve stenosis. There is no mitral annular calcification. Trivial mitral regurgitation. AORTIC VALVE: Normal trileaflet appearance. No visible sclerosis. Normal leaflet mobility. No evidence of aortic valve stenosis. No aortic regurgitation. AORTIC ROOT: Normal diameter and appearance. PULMONIC VALVE: Normal thickness and mobility. No stenosis. No regurgitation. PERICARDIUM: No evidence of pericardial effusion. IVC: Collapses with inspirations. PLEURA: CONCLUSION: 1. The left ventricle is normal in size and appears to have moderately to severely reduced systolic function. LVEF is estimated at 30 to 35%. 2. Right ventricle is mildly dilated and exhibits normal systolic function. 3. Moderate to severe biatrial dilatation. 4. No significant valvular dysfunction. 5. A repeat study with echocardiographic contrast material is needed for better assessment of the left ventricular systolic function. Adult Echocardiography Procedure Report Left Ventricle LVEDD (3.7 - 5.6 cm): 5.54 cm LVESD (2.2 - 4.0 cm): 4.59 cm LVIVS thickness (0.6 - 1.2 cm): 0.81 cm LVPW thickness (0.5 - 1.0 cm): 1.04 cm e': 0.13 m/s E - e': 6.35 LVOT Max Gradient: 2.32 mm[Hg] LVOT Area (cm2): 0.76 m/s Peak Velocity (LVOT): 0.76 m/s Mean Velocity (LVOT): 0.52 m/s LVOT Diameter 2.25 cm Left Atrium LA Volume Index (2D A2C): 52.94 ml/m2 Left Atrium Systolic Dimension: 3.86 cm Mitral Valve MV E to A Ratio: 5.28 Mitral Valve A-Wave Peak Velocity: 0.15 m/s Mitral Valve E-Wave Peak Velocity: 0.81 m/s Right Ventricle Aorta AO Root Diam: 3.68 cm Aortic Valve AoV Area (Peak Anders): 2.91 cm2, 2.91 cm2 Peak Velocity(Antegrade Flow): 1.05 m/s Peak Gradient(Antegrade Flow): 4.37 mm[Hg] Tricuspid Valve Pulmonic Valve Mean Gradient: 2.14 mm[Hg] Mean Velocity: 0.68 m/s Peak Velocity: 1.08 m/s, 0.83 m/s Peak Gradient: 2.75 mm[Hg], 4.65 mm[Hg] Right Atrium Right Atrium Systolic Pressure: 97.02 ml, 97.02 ml Dictated by: Li Cintron M.D. on 04/06/2024 at 18:06 Approved by: Li Cintron M.D. on 04/06/2024 at 18:18
== END 2024-04-06 12:48 | disposition home or self-care (01) ==
LOC: CARD 12:48
PROVIDERS: PCP Family Medicine; Visit Provider Internal Medicine Interventional Cardiology
DX: I50.22 Chronic systolic (congestive) heart failure (principal)
CPT/HCPCS: 93306

== ENCOUNTER 2024-04-30 09:01 | Outpatient (OUT) | payer MEDICARE, OTHER, SELFPAY ==
--- OUTSIDE RECORDS SUMMARY | 2024-04-30 09:17 | XMS_ITS | CCD ---
Author Organization [facility] Care Team Providers Care Cottrell Operator Name Role Phone ANNELIESE HOWARDD Admitting Unavailable CULLEN COSTA Primary Care Unavailable LI CINTRON V Referring Unavailable DILLAN HARDY Attending Unavailable CULLEN COSTA Primary Care Unavailable CULLEN COSTA Referring Unavailable LI CINTRON V Admitting Unavailable LI CINTRON V Attending Unavailable SELF, REFERRED Primary Care Unavailable SELF, REFERRED Referring Unavailable FLOR BIGGS Admitting Unavailable CYRUS ASHLEY Attending Unavailable MD Cullen Costa Primary Care Provider DO Balwinder Chavarria Emergency Provider Cullen Theodore Primary Care Unavailable Balwinder Chavarria Attending Unavailable Balwinder Chavarria Admitting Unavailable Dedra Mendoza Unavailable DEDRA MENDOZA Attending Unavailable DEDRA MENDOZA Admitting Unavailable IGOR, DR CULLEN Felton Primary Care Unavailable MAGNOLIA, DR ZE Moraes Consulting Unavailable DEDRA MENDOZA [...] Unavailable GAGE SIMPSON Consulting Unavailable LANA, DR CASAS Attending Unavailable LANA, DR CASAS Admitting Unavailable IGOR, DR CULLEN Felton Primary Care Unavailable LANA, DR CASAS Consulting Unavailable HARRIS, DR TIGIST Pendleton Attending Unavailable HARRIS, DR TIGIST Pendleton Admitting Unavailable DR DONNELL PERES Procedure Practitioner Unavail able COSTA, DR CULLEN Felton Primary Care Unavailable HOY ., DR JACOBO Consulting Unavailable WEST, DR ZE Moraes Consulting Unavailable ZIEBER, DR CARSON Ace Consulting Unavailable NADERER, DR TIGIST Pendleton Consulting Unavailable HAY ., DR CHI Consulting Unavailable RAFAELSUNSHINE HAYS Consulting Unavailable REINECK, DR DELBERT Brown Attending Unavailabl e REINECK, DR DELBERT Brown Admitting Unavailabl e REINECK, DR DELBERT Brown Consulting Unavailabl e COSTA, DR CULLEN Felton Primary Care Unavailable BUTCH ., EDWARD Consulting Unavailable KLKAT, ZE Consulting Unavailable HIGHLANDER, MIS Dye Admitting Unavailable HIGHLANDER, MIS Dye Attending Unavailable COSTA, DR CULLEN Felton Primary Care Unavailable HIGHLANDER, MIS Dye Attending Unavailable HIGHLANDER, MIS Dye Admitting Unavailable COSTA, DR CULLEN Felton Primary Care Unavailable HIGHLANDER, MIS Dye Attending Unavailable HIGHLANDER, MIS Dye Admitting Unavailable COSTA, DR CULLEN Felton Primary Care Unavailable CLOUGHERTY, SHANNAN Kaur Admitting Unavailabl e COSTA, DR CULLEN Felton Primary Care Unavailable CLOUGHERTY, SHANNAN Kaur Attending Unavailabl e CLOUGHERTY, SHANNAN Kaur Attending Unavailabl e CLOUGHERTY, SHANNAN Kaur Admitting Unavailabl e COSTA, DR CULLEN Felton Primary Care Unavailable HIGHLANDER, MIS Dye Admitting Unavailable HIGHLANDER, MIS Dye Attending Unavailable COSTA, DR CULLEN Felton Primary Care Unavailable HIGHLANDER, MIS Dye Admitting Unavailable HIGHLANDER, MIS Dye Attending Unavailable COSTA, DR CULLEN Felton Primary Care Unavailable KATKOVIOLETA Admitting Unavailable KATKO, VIOLETA Dye Attending Unavailable ZIEBER, DR CARSON Ace Consulting Unavailable COSTA, DR CULLEN Felton Primary Care Unavailable KATVIOLETA CANNON Consulting Unavailable MOUKARBEL, DR JEFFERSON Attending Unavailable [...] BUTCH ., EDWARD Consulting Unavailable NEFCY, MIS Lainez Unavailable NADERER, DR TIGIST Pendleton Attending Unavailable NADERER, DR TIGIST Pendleton Admitting Unavailable COSTA, DR CULLEN Felton Primary Care Unavailable NADERER, DR TIGIST Pendleton Consulting Unavailable HAY ., DR CHI Consulting Unavailable JOHANA, MIS Consulting Unavailable TIFFANIE SALGADO Consulting Unavailable MAGNOLIA, DR ZE Moraes Attending Unavailable SATURNINO, DR ZE Moraes Admitting Unavailable [facility], DR MEDEIROS Primary Care Unavailable EMETERIO, MIS Dye Attending Unavailable MIS STORM Admitting Unavailable IGOR, DR CULLEN Felton Primary Care Unavailable DEDRA MENDOZA Attending Unavailable DEDRA MENDOZA Admitting Unavailable DEDRA MENDOZA Consulting Unavailable IGOR, DR CULLEN Felton Primary Care Unavailable Cullen Costa Unavailable LI CINTRON Attending Unavailable GAGE SIMPSON Referring Unavailable DIOGO NGUYEN Attending Unavailable GAGE SIMPSON Referring Unavailable Allergies Allergy Classification Reported Allergen(s) Allergy Type Date of Onset Reaction(s) Facility (3 sources) patient allergy list reviewed by nurse or physicia Propensity to adverse reactions Comment:Done [employer] Other (3 sources) Allergies Reconciled Propensity to adverse reactions Unknown [employer] Other Medications Current Medications Medication Drug Class(es) Dates Sig (Normalized) Sig (Original) allopurinol 100 mg oral tablet (3 sources) Xanthine Oxidase Inhibitor Start: 12-23-2023 take 100 mg by mouth once daily Allopurinol Active 100 MG PO Daily December 23, 2023 12:00am Start: 05-27-2023 take 1 tablet by humaira th every twenty-four hours Allopurinol 100 MG 1 tablet Orally Once a day for 90 days May, Active amiodarone hydrochloride 200 mg oral tablet (7 sources) Antiarrhythmic Start: 06-27-2022 take 200 mg by mouth once daily Amiodarone Active 200 MG PO Daily June 27, 2022 12:00am apixaban 5 mg oral tablet (7 sources) Factor Xa Inhibitor Start: 06-27-2022 take 1 tablet by mouth twice daily Apixaban (Eliquis) 5 mg Tablet Active 5 MG PO Twice daily June 27, 2022 12:00am Aspir-81 81 MG (5 sources) take 1 tablet by mouth once daily Aspir-81 81 MG 1 tablet Orally Once a day Active aspirin 81 mg delayed release oral tablet (1 source) Platelet Aggregation Inhibitor, Nonsteroidal Anti-inflammatory Drug Start: 12-23-2023 take 81 mg by mouth once daily Aspirin Active 81 MG PO Daily December 23, 2023 12:00am atorvastatin 80 mg oral tablet (7 sources) HMG-CoA Reductase Inhibitor Start: 06-27-2022 take 80 mg by mouth once daily at bedtime Atorvastatin Active 80 MG PO Daily at bedtime June 27, 2022 12:00am bumetanide 1 mg oral tablet (8 sources) Loop Diuretic Start: 12-23-2023 take 3 mg by mouth twice daily Bumetanide Active 3 MG PO Twice daily December 23, 2023 12:00am Start: 06-27-2022 End: 12-23-2023 take 1 tablet by mouth twice daily Bumetanide (Bumex) 2 mg Tablet Discontinued 3 MG PO Twice daily June 27, 2022 12:00am December 23, 2023 1:58pm take 3 tablets by [facility] every twelve hours Bumetanide 1 MG 3 tablet Orally TWICE A DAY Active cholecalciferol 0.05 mg oral tablet (5 sources) Vitamin D Start: 12-23-2023 take 50 ug by mouth once daily Cholecalciferol (Vitamin D3) Active 50 MCG PO Daily December 23, 2023 12:00am Start: 12-10-2022 take 1 capsule by [facility] once daily Cholecalciferol 25 MCG (1000 UT) 1 capsule Orally Once a day for 90 days Dec, Active take 1 capsule by [facility] once daily Cholecalciferol 25 MCG (1000 UT) 1 capsule Orally Once a day for 90 days Active hydrALAZINE hydrochloride 25 mg oral tablet (8 sources) Arteriolar Vasodilator Start: 12-23-2023 take 25 mg by mouth twice daily Hydralazine Active 25 MG PO Twice daily December 23, 2023 12:00am Start: 06-27-2022 End: 12-23-2023 take 10 mg by mouth three times daily Hydralazine Discontinued 10 MG PO Three times daily June 27, 2022 12:00am December 23, 2023 1:59pm take 1 tablet by [facility] every twelve hours hydrALAZINE HCl 10 MG 1 tablet with food Orally Twice a day Active Isosorbide Dinitrate (10 sources) Nitrate Vasodilator Start: 12-08-2023 take 1 tablet by mouth three times daily Isosorbide Dinitrate Active 0 .ROUTE .COMPLEX 270 December 08, 2023 11:52am TAKE 1 TABLET BY MOUTH THREE TIMES A DAY Start: 06-27-2022 End: 12-08-2023 take 10 mg by mouth three times daily Isosorbide Dinitrate Discontinued 10 MG PO Three times daily June 27, 2022 12:00am December 08, 2023 11:52am allow nitrate-free interval of 12-14 hrs per 24-hr period 24 hr metoprolol succinate 25 mg extended release oral tablet (8 sources) beta-Adrenergic Demarco Start: 12-23-2023 take 12.5 mg by mouth once daily Metoprolol Succinate Active 12.5 MG PO Daily December 23, 2023 12:00am Start: 06-27-2022 End: 12-23-2023 take 25 mg by mouth once daily Metoprolol Succinate Di scontinued 25 MG PO Daily June 27, 2022 12:00am December 23, 2023 2:00pm take 0.5 tablet by m out once daily Metoprolol Succinate ER 25 MG TAKE 1/2 TABLET BY MOUTH ONCE DAILY for 90 Active potassium chloride 20 meq extended release oral tablet (6 sources) Start: 12-23-2023 take 20 mEq by mouth once daily Potassium Chloride Active 20 MEQ PO Daily December 23, 2023 12:00am take 1 tablet by humaira th every twenty-four hours Potassium Chloride ER 20 MEQ 1 tablet with food Orally Once a day for 90 days Active spironolactone 25 mg oral tablet (7 sources) Aldosterone Antagonist Start: 06-27-2022 take 25 mg by mouth once daily Spironolactone Active 25 MG PO Daily June 27, 2022 12:00am Completed/Discontinued Medications Medication Drug Class(es) Dates Sig (Normalized) Sig (Original) docusate sodium 100 mg oral tablet (3 sources) Start: 06-27-2022 End: 12-23-2023 take 100 mg by mouth three times daily Docusate Sodium Discontinued 100 MG PO Three times daily June 27, 2022 12:00am December 23, 2023 2:02pm take 1 capsule by mo uth every twenty-four hours Colace 100 MG 1 capsule as needed Orally Once a day Active doxycycline hyclate 100 mg oral capsule (2 sources) Tetracycline-class Drug Start: 06-27-2022 End: 12-23-2023 take 100 mg by mouth twice daily Doxycycline Hyclate Discontinued 100 MG PO Twice daily 27 06June 27, 2022 12:00am December 23, 2023 2:02pm Problems Active Problems Problem Classification Problem Date Documented Da te Episodic/Chronic Cardiac dysrhythmias (6 sources) Paroxysmal atrial fibrillation; Translations: [Paroxysmal atrial fibrillation] Onset: 07-18-2022 Chronic Chronic kidney disease (20 sources) Chronic kidney disease stage 4; Translations: [...] angina pectoris] Onset: 08-28-2022 Chronic Conduction disorders (18 sources) Cardiac pacemaker in situ; Translations: [Presence of cardiac pacemaker] Onset: 12-06-2022 Chronic Congestive heart failure; nonhypertensive (20 sources) Congestive heart failure; Translations: [Unspecified systolic (congestive) heart failure] Onset: 12-21-2021 Chronic Coronary atherosclerosis and other heart disease (8 sources) Atherosclerotic heart disease of tribal coronary artery without angina pectoris; Translations: [Atherosclerosis [...] 04-04-2022 Hypertension with complications and secondary hypertension (9 sources) Hypertensive heart and chronic kidney disease with heart failure and stage 1 through stage 4 chronic kidney disease, or unspecified chronic kidney disease; Translations: [Hypertensive chronic kidney disease with stage 1 through stage 4 chronic kidney disease, or unspecified chronic kidney disease] Onset: 03-17-2022 Chronic Mycoses (3 sources) Candidiasis of skin and nails; Translations: [Candidiasis of skin and nail] Episodic Nutritional deficiencies (8 sources) Vitamin D deficiency; Translations: [Vitamin D deficiency, unspecified] Chronic Open wounds of extremities (4 sources) Unspecified open wound, left lower leg, sequela; Translations: [Open wound of knee and/or leg and/or ankle] Onset: 04-12-2022 Episodic Other circulatory disease (3 sources) Elevated blood-pressure reading without diagnosis of hypertension; Translations: [Elevated blood-pressure reading, without diagnosis of hypertension] Episodic Other diseases of kidney and ureters (4 sources) Cyst of kidney, acquired; Translations: [Cyst of kidney, acquired] Onset: 11-30-2022 Episodic Other diseases of kidney and ureters (1 source) Acquired renal cystic disease; Translations: [Cyst of kidney, acquired] 12-21-2023 Episodic Other diseases of veins and lymphatics [...] insufficiency (chronic) (peripheral)] Episodic Other endocrine disorders (5 sources) Hyperparathyroidism; Translations: [Hyperparathyroidism, unspecified] 12-21-2023 Chronic Other endocrine disorders (3 sources) Hyperparathyroidism, unspecified; Translations: [Hyperparathyroidism, unspecified] Chronic Other inflammatory condition of skin (1 [...] Chronic Other nutritional; endocrine; and metabolic disorders (3 sources) Hyperuricemia without signs of inflammatory arthritis and tophaceous disease; Translations: [Other abnormal blood chemistry] Episodic Other nutritional; endocrine; and metabolic disorders (1 source) Hyperuricemia; Translations: [Hyperuricemia without signs of inflammatory arthritis and tophaceous disease] 12-21-2023 Episodic Phlebitis; thrombophlebitis and thromboembolism (1 source) [...] Pseudomonas] Episodic Skin and subcutaneous tissue infections (13 sources) Cellulitis; Translations: [Cellulitis, unspecified] Onset: 12-13-2021 [...] Episodic Coronary atherosclerosis and other heart disease (3 sources) Presence of aortocoronary bypass graft; Translations: [PRESENCE AORTOCORONARY BYPASS GRAFT] Onset: 07-18-2022 Episodic E Codes: Fall (1 source) Fall on same level, unspecified, initial encounter; Translations: [FALL SAME LEVEL UNSPECIFIED INITIAL] Onset: 04-04-2022 Episodic Fluid and electrolyte disorders (1 source) Dehydration; Translations: [DEHYDRATION] Onset: 07-18-2022 Episodic Malaise and fatigue (4 sources) Weakness; Translations: [WEAKNESS] Onset: 04-01-2022 Episodic Other aftercare (1 source) buttermaker continuous churn (current) use of aspirin; Translations: [TOOL MECHANIC CURRENT USE OF ASPIRIN] Onset: 07-18-2022 Episodic Other aftercare (3 sources) Other long wall mining machine helper (current) drug therapy; Translations: [OTH TOOL MECHANIC CURRENT DRUG THERAPY] Onset: 07-18-2022 Episodic Other aftercare (1 source) custodial (current) use of anticoagulants; Translations: [TOOL MECHANIC CURRNT USE ANTICOAGULANTS] Onset: 04-26-2022 Episodic Other [...] Results Test Name Value Interpretation Reference Range Facility [id number] 36 Spoke with patient's last week and made her aware that [facility] would be calling to schedule this echo w/ [facility]. [facility] 04-13-2024 36 Regarding echo resul t from 04/06/2024: MD Key Mao MA He needs a limited echo for LVEF with echocontrast (at [facility]). If the EF is reduced then he needs upgrade of his pacer to MANAGER OF INTERNAL/D. Can this be done at [facility] with Jessicaison? I already know he's not going to be keen on driving to [place]. But if you insist, I will make him aware of the need to go to [facility]. Just thought I'd ask. [facility] 02-12-[address] Simpson wanted pinky ortiz to have echo s/p device check on 01/27/2024. He is due for echo prior to his Apr [address] Cintron. [facility] Erythrocyte distribution wid th Auto (RBC) [Ratio]on 12-17-2023 Erythrocyte distribution width (RBC) [Ratio] 15.6 % 11.0-15.0 [facility] Estimated glomerular filtrat ion rate (GFR) non- Americanon 12-17-2023 GFR/1.73 sq M.predicted among non-blacks MDRD (S/P/Bld) [Vol rate/Area] 22 mL/min/{1.73_m2} >=60 [facility] Globulin Calc (S) [Mass/Vol] on 12-17-2023 Globulin (S) [Mass/Vol] 4.2 g/dL [facility] Hematocrit Auto (Bld) [Volum e fraction]on 12-17-2023 Hematocrit (Bld) [Volume fraction] 46.1 % 42.0-54.0 [facility] Hemoglobin [Mass/volume] in Bloodon 12-17-2023 Hemoglobin (Bld) [Mass/Vol] 14.9 g/dL 14.0-18.0 [facility] Laboratory - Chemistry and C hemistry - challengeon 12-17-2023 Albumin [Mass/Vol] 3.9 g/dL 3.4-5.0 [facility] ALP [Catalytic activity/Vol] 131 U/L 46-116 [facility] ALT [Catalytic activity/Vol] 21 U/L 16-63 [facility] AST [Catalytic activity/Vol] 20 U/L 15-37 [facility] Bilirubin [Mass/Vol] 1.1 mg/dL 0.2-1.0 [facility] Calcium [Mass/Vol] 9.5 mg/dL 8.5-10.1 [facility] Chloride [Moles/Vol] 100 mmol/L 98-107 [facility] CO2 [Moles/Vol] 26.5 mmol/L 21.0-32.0 [facility] Creatinine [Mass/Vol] 2.90 mg/dL 0.70-1.30 [facility] GFR/1.73 sq M.predicted MDRD (S/P/Bld) [Vol rate/Area] 26 mL/min/{1.73_m2} >=60 [facility] Glucose [Mass/Vol] 112 mg/dL 74-106 [facility] Magnesium [Mass/Vol] 2.9 mg/dL 1.8-2.4 [facility] Potassium [Moles/Vol] 4.4 mmol/L 3.5-5.1 [facility] Protein [Mass/Vol] 8.1 g/dL 6.4-8.2 [facility] Sodium [Moles/Vol] 139 mmol/L 136-145 [facility] Urate [Mass/Vol] 7.8 mg/dL 3.5-7.2 [facility] Urea nitrogen [Mass/Vol] 64.0 mg/dL 7.0-18.0 [facility] Urea nitrogen/Creatinine [Mass ratio] 22.1 mg/mg [facility] Leukocytes [#/volume] correc chester for nucleated erythrocytes in Blood by Automated counon 12-17-2023 WBC corrected for nucl RBC Auto (Bld) [#/Vol] 7.3 10 3/uL 4.0-11.0 [facility] MCH Auto (RBC) [Entitic mass ]on 12-17-2023 MCH (RBC) [Entitic mass] 29.6 pg 25.9-34.0 [facility] MCHC Auto (RBC) [Mass/Vol]on 12-17-2023 MCHC (RBC) [Mass/Vol] 32.3 g/dL 29.9-35.2 [facility] MCV Auto (RBC) [Entitic vol] on 12-17-2023 MCV (RBC) [Entitic vol] 91.5 fL 80.0-94.0 [facility] No Panel Informationon 12-16 25-Hydroxy Vitamin D Total 27.7 ng/mL [facility] Comment on above: <20 ng/mL Vit D defi cient20-<30 ng/mL Vit D [id number] ng/mL Vit D sufficient>100 ng/mL Potential Toxicity Miscellaneous Test COMMENT . [facility] Comment on above: Test Ordered: [id number] Prot+CreatU (Random)Creatinine, Urine 15.1 mg/dL CB Reference Range: Not Estab.Protein,Total,Urine <4.0 mg/dL CB Reference Range: Not Estab.Verified by repeat analysisProtein/Creat Ratio Comment [A ] CB Units of Measure: mg/g creat Reference Range: 0-200This result is below the assay's limit of quantitationindicating a dilute specimen, potentially due to diurnalvariation. Consider recollection at a time likely toprovide a more concentrated urine.Performed at: CB - [facility] [id number] [place], [place] [id number] Director: New Vega PhD, Phone: [phone] Parathyroid Hormone (Intact) 140 pg/mL 1565 [facility] Comment on above: Performed at: CB - [facility] [address] [id number] Director: New Vega PhD, Phone: [phone] Phosphorus Level 3.7 mg/dL 2.6-4.7 [facility] Platelet mean volume Auto (B ld) [Entitic vol]on 12-17-2023 Platelet mean volume (Bld) [Entitic vol] 10.8 fL 9.5-13.5 [facility] Platelets Auto (Bld) [#/Vol] on 12-17-2023 Platelets (Bld) [#/Vol] 195 10 3/uL 150-450 [facility] RBC Auto (Bld) [#/Vol]on RBC (Bld) [#/Vol] 5.04 10 6/uL 4.70-6.10 [facility] Serum or plasma albumin/glob ulin mass ratioon 12-17-2023 Albumin/Globulin [Mass ratio] 0.9 {ratio} [facility] Serum or plasma anion gap de terminationon 12-17-2023 Anion gap [Moles/Vol] 16.9 mmol/L [facility] Office Visiton 10-20-2023 Follow-up visit [id number] Man Patel 1950 M Date Provider Department Center 10/20/2023 LI [facility]X [facility] Family History Problem Relation Age of Onset Coronary artery disease Mother Hyperlipidemia Mother Hypertension Mother Stroke Mother Diabetes Mother Coronary artery disease Father Hyperlipidemia Father Hypertension Father Family Status - Relation Status Age at Mother Father Level of Service:71710 [place] OFFICE/OUTPATIENT ESTABLISHED LOW MDM 20 MIN Normal [facility] Office Visiton 05-07-2023 Follow-up visit [id number] Man Patel 1950 M Date Provider Department Center 05/07/2023 DIOGO SELF [facility] Family History Problem Relation Age of Onset Coronary artery disease Mother Hyperlipidemia Mother Hypertension Mother Stroke Mother Diabetes Mother Coronary artery disease Father Hyperlipidemia Father Hypertension Father Family Status - Relation Status Age at Mother Father Level of Service:21569 ND OFFICE/OUTPATIENT ESTABLISHED MOD MDM 30-39 MIN Normal [facility] PTH INTACTon 12-04-2022 PTH, Intact 66 pg/mL Critically high 15-65 [facility] Comment on above: Performed By: #### P THINT ####[facility] [id number] [place] [address]Dr. Elba Anthony HEMOGRAM AND PLATELon 2022 Hematocrit (Bld) [Volume fraction] 43.4 % Normal 42.0-54.0 [facility] Comment on above: Performed By: #### H H ####[facility] [address] [place], [place] [address]Dr. Elba Anthony Hemoglobin (Bld) [Mass/Vol] 14.1 g/dL Normal 14.0-18.0 [facility] Comment on above: Performed By: #### H H ####[facility] [address] [place], [place] [address]Dr. Elba Anthony MCH (RBC) [Entitic mass] 28.2 pg Normal 25.9-34.0 [facility] Comment on above: Performed By: #### H H ####[facility] [address] [place], [place] [address]Dr. Elba Anthony MCHC (RBC) [Mass/Vol] 32.5 g/dL Normal 29.9-35.2 [facility] Comment on above: Performed By: #### H H ####[facility] [id number] [place] [address]Dr. Elba Anthony MCV (RBC) [Entitic vol] 86.8 fL Normal 80.0-94.0 [facility] Comment on above: Performed By: #### H H ####[facility] [address] [place], [place] [address]Dr. Elba Anthony PLT 170 103/ul Normal 150-450 [facility] Comment on above: Performed By: #### H H ####[facility] [address] [place] [address]Dr. Elba Anthony RBC 5.00 106/ul Normal 4.70-6.10 [facility] Comment on above: Performed By: #### H H ####[facility] [address] [place] [address]Dr. Elba Anthony WBC 7.2 103/ul Normal 4.0-11.0 [facility] Comment on above: Performed By: #### H H ####[facility] [address] [place] [address]Dr. Elba Anthony MAGNESIUMon 12-03-2022 Magnesium [Mass/Vol] 2.6 mg/dL Critically high 1.8-2.4 [facility] Comment on above: Performed By: #### C MP, URIC, PHOS, MG ####[facility] [address] [place] [address]Dr. Elba Anthony PHOSPHORUSon 12-03-2022 Phosphate [Mass/Vol] 3.9 mg/dL Normal 2.6-4.7 [facility] Comment on above: Performed By: #### C MP, URIC, PHOS, MG ####[facility] [address] [place] [address]Dr. Elba Anthony PROF 14(COMP METB)on 023 Albumin [Mass/Vol] 4.0 g/dL Normal 3.4-5.0 [facility] Comment on above: Performed By: #### C MP, URIC, PHOS, MG ####[facility] [address] [place] [address]Dr. Elba Anthony Albumin/Globulin [Mass ratio] 0.9 {ratio} Normal [facility] Comment on above: Performed By: #### C MP, URIC, PHOS, MG ####[facility] [id number] [place] [address]Dr. Elba Anthony ALP [Catalytic activity/Vol] 159 U/L Critically high 46-116 [facility] Comment on above: Performed By: #### C MP, URIC, PHOS, MG ####[facility] [address] [place] [address]Dr. Elba Anthony ALT [Catalytic activity/Vol] 33 U/L Normal 16-63 [facility] Comment on above: Performed By: #### C MP, URIC, PHOS, MG ####[facility] [address] [place] [address]Dr. Elba Anthony Anion gap [Moles/Vol] 15.2 mmol/L Normal Th [facility] Comment on above: Performed By: #### C MP, URIC, PHOS, MG ####[facility] [address]btixdms[address] [place] [address]Dr. Elba Anthony AST [Catalytic activity/Vol] 27 U/L Normal 15-37 [facility] Comment on above: Performed By: #### C MP, URIC, PHOS, MG ####[facility] Kpxdhltqdp[address] [place], [place] [address]Dr. Elba Anthony Bilirubin [Mass/Vol] 0.9 mg/dL Normal 0.2-1.0 [facility] Comment on above: Performed By: #### C MP, URIC, PHOS, MG ####[facility] Rmstzyygpt[address] [place], [place] [address]Dr. Elba Anthony Calcium [Mass/Vol] 9.8 mg/dL Normal 8.5-10.1 [facility] Comment on above: Performed By: #### C MP, URIC, PHOS, MG ####[facility] [address]irnhperqb[address] [place] [address]Dr. Elba Anthony Chloride [Moles/Vol] 102 mmol/L Normal 98-107 [facility] Comment on above: Performed By: #### C MP, URIC, PHOS, MG ####[facility] Cbpnsfhnuo18[address] [place], [place] [address]Dr. Elba Anthony CO2 [Moles/Vol] 30.5 mmol/L Normal 21.0-32.0 [facility] Comment on above: Performed By: #### C MP, URIC, PHOS, MG ####[facility] Tfstntylzv[address] [place] [address]Dr. Elba Anthony Creatinine [Mass/Vol] 2.63 mg/dL Critically high 0.70-1.30 [facility] Comment on above: Performed By: #### C MP, URIC, PHOS, MG ####[facility] Rfxeewmbug[address] [place] [address]Dr. Elba Anthony EGFR-AF SOMALI 29 mL/min/1.73m2 Critically low >=60 [facility] Comment on above: Performed By: #### C MP, URIC, PHOS, MG ####[facility] Jpymbyupas7[address] [place], [place] [address]Dr. Elba Anthony EGFR-NON AF SOMALI 24 mL/min/1.73m2 Critically low >=60 [facility] Comment on above: Performed By: #### C MP, URIC, PHOS, MG ####[facility] Fmoarbrhsz8[address] [place], [place] [address]Dr. Nereydasiobhan Anthony Globulin (S) [Mass/Vol] 4.5 g/dL Normal [facility] Comment on above: Performed By: #### C MP, URIC, PHOS, MG ####[facility] Rjmkofnafv7469[address] [place], [place] [address]Dr. Nereydasiobhan Anthony Glucose [Mass/Vol] 122 mg/dL Critically high 74-106 [facility] Comment on above: Performed By: #### C MP, URIC, PHOS, MG ####[facility] Cnekarsfbw7415[address] [place], [place] [address]Dr. Elba Anthony Potassium [Moles/Vol] 4.7 mmol/L Normal 3.5-5.1 [facility] Comment on above: Performed By: #### C MP, URIC, PHOS, MG ####[facility] Wrvmtfhxpn759[address] [place], [place] [address]Dr. Nereydasiobhan Anthony Protein [Mass/Vol] 8.5 g/dL Critically high 6.4-8.2 [facility] Comment on above: Performed By: #### C MP, URIC, PHOS, MG ####[facility] Adochcsfan6194[address] [place], [place] [address]Dr. Elba Raj Sodium [Moles/Vol] 143 mmol/L Normal 136-145 [facility] Comment on above: Performed By: #### C MP, URIC, PHOS, MG ####[facility] Gnimjqfwxh7365[address] [place], [place] [address]Dr. Nereydasiobhan Anthony Urea nitrogen [Mass/Vol] 59.0 mg/dL Critically high 7.0-18.0 [facility] Comment on above: Performed By: #### C MP, URIC, PHOS, MG ####[facility] Ibcmlklrro2143[address] [place], [place] [address]Dr. Elba Anthony Urea nitrogen/Creatinine [Mass ratio] 22.4 mg/mg Normal [facility] Comment on above: Performed By: #### C MP, URIC, PHOS, MG ####[facility] Agwuhmwmbz7[address] [place], [place] [address]Dr. Elba Anthony UA RANDOMon 12-03-2022 Bilirubin Ql (U) Negative Normal NEGATIVE [facility] Comment on above: Performed By: #### U A ####[facility] Jozrnxxxcl8038[address] [place], [place] [address]Dr. Elba Anthony Clarity (U) CLEAR Normal CLEAR [facility] Comment on above: Performed By: #### U A ####[facility] Ohtjgncqrj0927[address] [place], [place] [address]Dr. Elba Anthony Color (U) LT. YELLOW Normal YELLOW [facility] Comment on above: Performed By: #### U A ####[facility] Oheivqczub750[address] [place], [place] [address]Dr. Elba Anthony Glucose Ql (U) Negative Normal NEGATIVE [facility] Comment on above: Performed By: #### U A ####[facility] Aqandelfus4929[address] [place], [place] [address]Dr. Elba Anthony Hemoglobin Ql (U) Negative Normal NEGATIVE [facility] Comment on above: Performed By: #### U A ####[facility] Lpkgxsvhzb3466[address] [place], [place] [address]Dr. Elba Anthony Ketones Ql (U) Negative Normal NEGATIVE [facility] Comment on above: Performed By: #### U A ####[facility] Orofjcccob[address] [place] [address]Dr. Elba Anthony LEUKOCYTES Negative Normal NEGATIVE [facility] Comment on above: Performed By: #### U A ####[facility] Haxmqncvbb67[address] [place] [address]Dr. Elba Anthony Nitrite Ql (U) Negative Normal NEGATIVE [facility] Comment on above: Performed By: #### U A ####[facility] Uwpktwngyf338[address] [place], [place] [address]Dr. Nereydasiobhan Anthony pH (U) 7.0 [pH] Normal 5-9 [facility] Comment on above: Performed By: #### U A ####[facility] Yghjqrcgts5938[address] [place], [place] [address]Dr. Elba Anthony SPEC GRAVITY <=1.005 Abnormal 1.005-<=1.02 5 [facility] Comment on above: Performed By: #### U A ####[facility] Zzimetcmoz2342[address] [place], [place] [address]Dr. Elba Anthony UA PROTEIN TRACE Normal NEGATIVE/ TRACE [facility] Comment on above: Performed By: #### U A ####[facility] Ibqmxhoepm1442[address] [place], [place] [address]Dr. Elba Anthony Urobilinogen Qn (U) 2.0 {Caden'U}/dL Abnormal 0.2 - 1. 0 [facility] Comment on above: Performed By: #### U A ####[facility] Ovzzuasmxv8[address] [place], [place] [address]Dr. Nereydasiobhan Raj URIC ACID SERUMon 12-03-2022 Urate [Mass/Vol] 9.0 mg/dL Critically high 3.5-7.2 [facility] Comment on above: Performed By: #### C MP, URIC, PHOS, MG ####[facility] Oqkarcybpx6[address] [place], [place] [address]Dr. Elba Anthony URINE T PROTEIN CREAT RATIOo n 12-03-2022 Protein (U) [Mass/Vol] 26.9 mg/dL Critically high <=12.0 [facility] Comment on above: Performed By: #### U RTPCR ####[facility] H[address]phds[address]uc[address] [place] [address]Dr. Nereydasiobhan Raj UR PROT CREAT RAT 0.33 Normal [facility] Comment on above: Performed By: #### U RTPCR ####[facility] Hkolnjydmd[address] [place] [address]Dr. Elba Anthony URINE CREAT 82.74 mg/dL Normal 20.00-300.00 [facility] Comment on above: Performed By: #### U RTPCR ####[facility] Zbwqojfkga9[address] [place] [address]Dr. Elba Anthony VITAMIN D 25 OHon 12-03-2022 VIT D 25-OH 14.7 ng/mL Normal [facility] Comment on above: Performed By: #### V ITAD ####[facility] Kbczrtsdbl[address] [place], [place] [address]Dr. Elba Anthony VIT D RANGES SEE BELOW Normal [facility] Comment on above: Result Comment: <20 ng/mL Vit D deficient 20 - <30 ng/mL Vit D insufficient 30 - 100 ng/mL Vit D sufficient >100 ng/mL Potential Toxicity Performed By: #### V ITAD ####[facility] Abxkmzufuz0714[address] [place], [place] [address]Dr. Elba Anthony US KIDNEYSon 11-27-2022 US KIDNEYS Normal [facility] PROF CHEM 8 (BAS METB)on Anion gap [Moles/Vol] 11.1 mmol/L Normal [facility] Comment on above: Performed By: #### B MP ####[facility] Vqovhmwxsu7916[address] [place], [place] [address]Dr. Elba Anthony Calcium [Mass/Vol] 9.0 mg/dL Normal 8.5-10.1 [facility] Comment on above: Performed By: #### B MP ####[facility] [address]udzqt[address] [place] [address]Dr. Elba Anthony Chloride [Moles/Vol] 99 mmol/L Normal 98-107 [facility] Comment on above: Performed By: #### B MP ####[facility] Utxmkxutcs[address] [place] [address]Dr. Elba Anthony CO2 [Moles/Vol] 30.3 mmol/L Normal 21.0-32.0 [facility] Comment on above: Performed By: #### B MP ####[facility] Cnorvxglsl0963[address] [place], [place] [address]Dr. Elba Anthony Creatinine [Mass/Vol] 2.43 mg/dL Critically high 0.70-1.30 [facility] Comment on above: Performed By: #### B MP ####[facility] [address]yrri[address] [place] [id number]. Elba Anthony EGFR-AF SOMALI 32 mL/min/1.73m2 Critically low >=60 [facility] Comment on above: Performed By: #### B MP ####[facility] Cymczjbqlw[address] [place], [place] [address]Dr. Elba Anthony EGFR-NON AF SOMALI 27 mL/min/1.73m2 Critically low >=60 [facility] Comment on above: Performed By: #### B MP ####[facility] Ufgwvzfmpf4619[address] [place], [place] [address]Dr. Elba Anthony Glucose [Mass/Vol] 142 mg/dL Critically high 74-106 [facility] Comment on above: Performed By: #### B MP ####[facility] Umldqqrvwf1673[address] [place], [place] [address]Dr. Elba Anthony Potassium [Moles/Vol] 4.4 mmol/L Normal 3.5-5.1 [facility] Comment on above: Performed By: #### B MP ####[facility] Fzlerektjm9811[address] [place], [place] [address]Dr. Elba Anthony Sodium [Moles/Vol] 136 mmol/L Normal 136-145 [facility] Comment on above: Performed By: #### B MP ####[facility] Mpxmikqunr0868[address] [place], [place] [address]Dr. Elba Anthony Urea nitrogen [Mass/Vol] 60.0 mg/dL Critically high 7.0-18.0 [facility] Comment on above: Performed By: #### B MP ####[facility] L[address]hecrc[address] [place] [id number]. Elba Anthony Urea nitrogen/Creatinine [Mass ratio] 24.7 mg/mg Normal [facility] Comment on above: Performed By: #### B MP ####[facility] Cfkaacwarz[address] [place] [id number]. Elba Anthony CBC AUTO DIFFon 07-11-2022 BASO # 0.1 103/ul Normal 0.0-0.1 [facility] Comment on above: Performed By: #### C BC ####[facility] Mvgcwfkvfm2375[address] [place], [place] [address]Dr. Elba Raj Basophils/100 WBC (Bld) 0.8 % Normal 0.2-2.0 [facility] Comment on above: Performed By: #### C BC ####[facility] Xqrnkfgjzg9072[address] [place], [place] [address]Dr. Elba Raj EO # 0.9 103/ul Critically high 0.0-0.7 [facility] Comment on above: Performed By: #### C BC ####[facility] Fhkvufupmw9986[address] [place], [place] [address]Dr. Elba Anthony Eosinophils/100 WBC (Bld) 13.7 % Critically high 0.9-7.0 [facility] Comment on above: Performed By: #### C BC ####[facility] Qsubyworsv8408[address] [place], [place] [address]Dr. Elba Anthony Erythrocyte distribution width (RBC) [Ratio] 20.8 % Critically high 11.0-15.0 [facility] Comment on above: Performed By: #### C BC ####[facility] Sw[address]cknta[address] [place], [place] [address]Dr. Elba Anthony Hematocrit (Bld) [Volume fraction] 35.3 % Critically low 42.0-54.0 [facility] Comment on above: Performed By: #### C BC ####[facility] Jnyrjiosla9911[address] [place], [place] [address]Dr. Elba Anthony Hemoglobin (Bld) [Mass/Vol] 11.5 g/dL Critically low 14.0-18.0 [facility] Comment on above: Performed By: #### C BC ####[facility] Aoldqgmwpk8[address] [place] [address]DrLatoya Anthony IG # 0.04 10e3/ul Critically high 0.00-0.03 [facility] Comment on above: Performed By: #### C BC ####[facility] Dwpmuhliff6074 [place] [address]DrLatoya Anthony IG % 0.6 % Critically high 0.0-0.5 [facility] Comment on above: Performed By: #### C BC ####[facility] Havtflzaek0386[address] [place], [place] [address]DrLatoya Anthony LYMPH # 1.1 103/ul Critically low 1.2-3.8 [facility] Comment on above: Performed By: #### C BC ####[facility] Ctklwrrtxc2[address] [place], [place] [address]DrLatoya Anthony Lymphocytes/100 WBC (Bld) 17.2 % Critically low 20.5-60.0 [facility] Comment on above: Performed By: #### C BC ####[facility] Ajzqjzdldf[address]64[address] [place], [place] [address]DrLatoya Anthony MANUAL DIFF REQ NO Normal [facility] Comment on above: Performed By: #### C BC ####[facility] Zogkxcfhxo7[address] [place], [place] [address]Dr. Elba Anthony MCH (RBC) [Entitic mass] 27.9 pg Normal 25.9-34.0 [facility] Comment on above: Performed By: #### C BC ####[facility] Mglmbhuaja54[address] [place], [place] [address]Dr. Elba Anthony MCHC (RBC) [Mass/Vol] 32.6 g/dL Normal 29.9-35.2 [facility] Comment on above: Performed By: #### C BC ####[facility] Ecuegzgayf[address] [place] [address]DrLatoya Anthony MCV (RBC) [Entitic vol] 85.7 fL Normal 80.0-94.0 [facility] Comment on above: Performed By: #### C BC ####[facility] Ycbpjvywpb0114 [place] [id number]. Elba Anthony MONO # 0.8 103/ul Normal 0.3-0.8 [facility] Comment on above: Performed By: #### C BC ####[facility] Ecuciazuds14[address] [place] [id number]. Elba Anthony Monocytes/100 WBC (Bld) 13.0 % Critically high 1.7-12.0 [facility] Comment on above: Performed By: #### C BC ####[facility] Dodmnytuvs8763 [place] [address]Dr. Elba Anthony NEUT # 3.4 103/ul Normal 1.4-6.5 [facility] Comment on above: Performed By: #### C BC ####[facility] Iqiyqobkus1563 [place] [address]Dr. Elba Anthony Neutrophils/100 WBC (Bld) 54.7 % Normal 43.0-75.0 [facility] Comment on above: Performed By: #### C BC ####[facility] Saouszekit6249[address] [place], [place] [address]Dr. Elba Anthony Platelet mean volume (Bld) [Entitic vol] 9.5 fL Normal 9.5-13.5 [facility] Comment on above: Performed By: #### C BC ####[facility] Lnltqbsvci340[address] [place] [address]Dr. Elba Anthony PLT 206 103/ul Normal 150-450 [facility] Comment on above: Performed By: #### C BC ####[facility] Dbbbuymgha16[address] [place] [id number]. Elba Anthony RBC 4.12 106/ul Critically low 4.70-6.10 [facility] Comment on above: Performed By: #### C BC ####[facility] Igkhzxhdxg0649 [place] [address]Dr. Elba Anthony WBC 6.2 103/ul Normal 4.0-11.0 [facility] Comment on above: Performed By: #### C BC ####[facility] Ldpvfjsvus6422 [place] [address]Dr. Elba Anthony PROF CHEM 8 (BAS METB)on Anion gap [Moles/Vol] 10.9 mmol/L Normal [facility] Comment on above: Performed By: #### B MP ####[facility] Cpuudttdno68[address] [place], [place] [address]Dr. Elba Anthony Calcium [Mass/Vol] 8.9 mg/dL Normal 8.5-10.1 [facility] Comment on above: Performed By: #### B MP ####[facility] Uwcoxnnlpz0574[address] [place], [place] [address]Dr. Elba Anthony Chloride [Moles/Vol] 103 mmol/L Normal 98-107 [facility] Comment on above: Performed By: #### B MP ####[facility] Bbkwrnxmlh0093[address] [place], [place] [address]Dr. Elba Anthony CO2 [Moles/Vol] 31.0 mmol/L Normal 21.0-32.0 [facility] Comment on above: Performed By: #### B MP ####[facility] Vlllrdfmlk1815[address] [place], [place] [address]Dr. Elba Anthony Creatinine [Mass/Vol] 2.18 mg/dL Critically high 0.70-1.30 [facility] Comment on above: Performed By: #### B MP ####[facility] Lyywvgelhs[address] [place], [place] [address]Dr. Elba Anthony EGFR-AF SOMALI 36 mL/min/1.73m2 Critically low >=60 [facility] Comment on above: Performed By: #### B MP ####[facility] Hmzwebvrqw6925[address] [place], [place] [address]Dr. Elba Anthony EGFR-NON AF SOMALI 30 mL/min/1.73m2 Critically low >=60 [facility] Comment on above: Performed By: #### B MP ####[facility] Dllqdwjxde7075[address] [place], [place] [address]Dr. Elba Anthony Glucose [Mass/Vol] 99 mg/dL Normal 74-106 [facility] Comment on above: Performed By: #### B MP ####[facility] Vydmuvamcv5[address] [place] [address]Dr. Elba Anthony Potassium [Moles/Vol] 3.9 mmol/L Normal 3.5-5.1 [facility] Comment on above: Performed By: #### B MP ####[facility] Mxintcmsel8994 [place] [address]Dr. Elba Anthony Sodium [Moles/Vol] 141 mmol/L Normal 136-145 [facility] Comment on above: Performed By: #### B MP ####[facility] Ayoqvcshgz6499[address] [place], [place] [address]Dr. Nereydasiobhan Raj Urea nitrogen [Mass/Vol] 40.0 mg/dL Critically high 7.0-18.0 [facility] Comment on above: Performed By: #### B MP ####[facility] Jiuzmwuqpc3392[address] [place], [place] [address]Dr. Elba Anthony Urea nitrogen/Creatinine [Mass ratio] 18.3 mg/mg Normal [facility] Comment on above: Performed By: #### B MP ####[facility] Oztgkyomqg6[address] [place], [place] [address]Dr. Nereydasiobhan Raj XR CHEST 2 Von 07-11-2022 XR CHEST 2 V Normal [facility] BNPon 07-10-2022 Natriuretic peptide B (Bld) [Mass/Vol] 2542.0 pg/mL Critically high <=900.0 [facility] Comment on above: Performed By: #### H STROPN, BNP, CMP ####[facility] J[address]vqsdae[address] [place], [place] [address]Dr. Elba Anthony CARDIAC FADY 3-6on 2 CK [Catalytic activity/Vol] 40 U/L Normal 39-308 [facility] Comment on above: Performed By: #### C MREP ####[facility] Mgrtemmjtr3[address] [place] [address]Dr. Elba Anthony CK.MB [Mass/Vol] 0.92 ng/mL Normal <=3.60 [facility] Comment on above: Performed By: #### C MREP ####[facility] Qioqhchbdw4711 [place] [id number]. Elba Anthony HSTROP 49.6 pg/mL Normal 4.0-76.1 [facility] Comment on above: Result Comment: CUT- OFF POINTS HAVE BEEN ESTABLISHED BASED ON THE FOURTH UNIVERSAL DEFINITIONS OF MYOCARDIALINFARCTION. THE UPPER REFERENCE LIMIT (URL) OF TROPONIN, DEFINED THE 99TH PERCENTILE OFcTnI DISTRIBUTION IN A REFERENCE POPULATION, HAS BEEN CONFIRMED THE DECISION THRESHOLDFOR OR DIAGNOSIS. Performed By: #### C MREP ####[facility] Yrabjfoxsv[address] [place] [address]Dr. Elba Anthony CK [Catalytic activity/Vol] 39 U/L Normal 39-308 [facility] Comment on above: Performed By: #### C MREP ####[facility] Vokxdwgcpr[address] [place], [place] [address]Dr. Elba Anthony CK.MB [Mass/Vol] 0.76 ng/mL Normal <=3.60 [facility] Comment on above: Performed By: #### C MREP ####[facility] Xoswkeezus[address] [place], [place] [address]Dr. Elba Raj HSTROP 47.3 pg/mL Normal 4.0-76.1 [facility] Comment on above: Result Comment: CUT- OFF POINTS HAVE BEEN ESTABLISHED BASED ON THE FOURTH UNIVERSAL DEFINITIONS OF MYOCARDIALINFARCTION. THE UPPER REFERENCE LIMIT (URL) OF TROPONIN, DEFINED THE 99TH PERCENTILE OFcTnI DISTRIBUTION IN A REFERENCE POPULATION, HAS BEEN CONFIRMED THE DECISION THRESHOLDFOR OR DIAGNOSIS. Performed By: #### C MREP ####[facility] Namtov[address]ku[address] [place], [place] [address]Dr. Elba Anthony CBC AUTO DIFFon 07-10-2022 BASO # 0.1 103/ul Normal 0.0-0.1 [facility] Comment on above: Performed By: #### C BC ####[facility] Zyfryckozv3364 [place] [id number]. Elba Anthony Basophils/100 WBC (Bld) 1.1 % Normal 0.2-2.0 [facility] Comment on above: Performed By: #### C BC ####[facility] Gjmyrtflxz3832 [place] [id number]. Elba Anthony EO # 0.6 103/ul Normal 0.0-0.7 [facility] Comment on above: Performed By: #### C BC ####[facility] Pucbbyuedr6160 [place] [id number]. Elba Anthony Eosinophils/100 WBC (Bld) 8.9 % Critically high 0.9-7.0 [facility] Comment on above: Performed By: #### C BC ####[facility] Ntwzymokbx2574 [place] [address]Dr. Elba Anthony Erythrocyte distribution width (RBC) [Ratio] 21.1 % Critically high 11.0-15.0 [facility] Comment on above: Performed By: #### C BC ####[facility] Cdtlpujwbs[address] [place], [place] [address]Dr. Elba Anthony Hematocrit (Bld) [Volume fraction] 39.1 % Critically low 42.0-54.0 [facility] Comment on above: Performed By: #### C BC ####[facility] Cueeqnhbmp[address] [place], [place] [address]Dr. Elba Anthony Hemoglobin (Bld) [Mass/Vol] 12.6 g/dL Critically low 14.0-18.0 [facility] Comment on above: Performed By: #### C BC ####[facility] Thjsghzuwr2[address] [place], [place] [address]Dr. Elba Anthony IG # 0.04 10e3/ul Critically high 0.00-0.03 [facility] Comment on above: Performed By: #### C BC ####[facility] W[address] [place], [place] [address]Dr. Elba Anthony IG % 0.6 % Critically high 0.0-0.5 [facility] Comment on above: Performed By: #### C BC ####[facility] Bjnrnkmifb[address] [place], [place] [address]Dr. Nereydasiobhan Anthony LYMPH # 0.9 103/ul Critically low 1.2-3.8 [facility] Comment on above: Performed By: #### C BC ####[facility] Pxagpucxmm9541 [place] [id number]. Elba Anthony Lymphocytes/100 WBC (Bld) 13.8 % Critically low 20.5-60.0 [facility] Comment on above: Performed By: #### C BC ####[facility] Rwqizgnzxt7034 [place] [id number] Anthony MANUAL DIFF REQ NO Normal [facility] Comment on above: Performed By: #### C BC ####[facility] Fqaaodxlai0632 [place] [id number]. Elba Anthony MCH (RBC) [Entitic mass] 27.5 pg Normal 25.9-34.0 [facility] Comment on above: Performed By: #### C BC ####[facility] Ygwkanwbww7361 [place] [address]Dr. Elba Anthony MCHC (RBC) [Mass/Vol] 32.2 g/dL Normal 29.9-35.2 [facility] Comment on above: Performed By: #### C BC ####[facility] Oyyirtfdas[address] [place], [place] [address]DrLatoya Anthony MCV (RBC) [Entitic vol] 85.2 fL Normal 80.0-94.0 [facility] Comment on above: Performed By: #### C BC ####[facility] Lcmbufgske1204 [place] [address]Dr. Elba Anthony MONO # 0.9 103/ul Critically high 0.3-0.8 [facility] Comment on above: Performed By: #### C BC ####[facility] Uadzlrbmjd3637 [place] [id number] Anthony Monocytes/100 WBC (Bld) 14.0 % Critically high 1.7-12.0 [facility] Comment on above: Performed By: #### C BC ####[facility] R[address]df[address]kfi[address] [place], [place] [address]DrLatoya Anthony NEUT # 4.1 103/ul Normal 1.4-6.5 [facility] Comment on above: Performed By: #### C BC ####[facility] Wlqxcgpnfw4254 [place], [place] [address]Qf. Elba Anthony Neutrophils/100 WBC (Bld) 61.6 % Normal 43.0-75.0 [facility] Comment on above: Performed By: #### C BC ####[facility] Xcraklvyzc6294 [place], [place] [address]Hd. Elba Anthony Platelet mean volume (Bld) [Entitic vol] 10.1 fL Normal 9.5-13.5 [facility] Comment on above: Performed By: #### C BC ####[facility] Rabzrwvjui7954 [place] [phone]. Elba Anthony PLT 223 103/ul Normal 150-450 [facility] Comment on above: Performed By: #### C BC ####[facility] Nrhjwgukct3093 [place] [phone]. Elba Anthony RBC 4.59 106/ul Critically low 4.70-6.10 [facility] Comment on above: Performed By: #### C BC ####[facility] Ljtayxtxmy1040 [place], [place] [address]Tx. Elba Anthony WBC 6.7 103/ul Normal 4.0-11.0 [facility] Comment on above: Performed By: #### C BC ####[facility] Uymwxycfsu9977 [place], [place] [address]Iz. Elba Anthony Covid-19 PCR ([facility])on SARS-CoV-2 (COVID-19) RNA ELIZABETH+probe Ql (Unsp spec) Not detected Normal NOT DETECTED [facility] Comment on above: Result Comment: When diagnostic [...] for this test is supported by the [place] of Health and Human Service's declaration that [...] longer be used). Performed By: #### C [facility] ####[facility] Hwpkgwpmug[address] [place], [place] [address]Dr. Elba Anthony ER URINE PROFILEon 2 Bilirubin Ql (U) Negative Normal NEGATIVE [facility] Comment on above: Performed By: #### E RUR ####[facility] Xbhroeivtf0[address] [place], [place] [address]Dr. Elba Anthony Clarity (U) CLEAR Normal CLEAR [facility] Comment on above: Performed By: #### E RUR ####[facility] Efwfwmmruj[address] [place], [place] [address]Dr. Elba Anthony Color (U) LT. YELLOW Normal YELLOW [facility] Comment on above: Performed By: #### E RUR ####[facility] Njycqzlewa[address] [place], [place] [address]Dr. Elba Anthony ERUAHD A micrscopic examina tion will be performed if indicated. Normal [facility] Comment on above: Performed By: #### E RUR ####[facility] Nehrwcfkza49[address] [place], [place] [address]Dr. Elba Anthony Glucose Ql (U) Negative Normal NEGATIVE [facility] Comment on above: Performed By: #### E RUR ####[facility] Qxjmbhdlho5[address] [place], [place] [address]Dr. Elba Anthony Hemoglobin Ql (U) Negative Normal NEGATIVE [facility] Comment on above: Performed By: #### E RUR ####[facility] Lqlyeobgvk23[address] [place], [place] [address]Dr. Elba Anthony Ketones Ql (U) Negative Normal NEGATIVE [facility] Comment on above: Performed By: #### E RUR ####[facility] Eomykkvvof8046 [place] [address]Dr. Elba Anthony LEUKOCYTES Negative Normal NEGATIVE [facility] Comment on above: Performed By: #### E RUR ####[facility] Dzsswftxoq7685 [place] [address]Dr. Elba Anthony Nitrite Ql (U) Negative Normal NEGATIVE [facility] Comment on above: Performed By: #### E RUR ####[facility] Ogskfqslyx64[address] [place], [place] [address]Dr. Elba Anthony pH (U) 7.0 [pH] Normal 5-9 [facility] Comment on above: Performed By: #### E RUR ####[facility] Gmfpxoayqr8[address] [place], [place] [address]Dr. Elba Anthony SPEC GRAVITY 1.010 Normal 1.005-<=1.02 5 [facility] Comment on above: Performed By: #### E RUR ####[facility] Gskzbyvssr6[address] [place], [place] [address]Dr. Elba Anthony UA PROTEIN Negative Normal NEGATIVE/ TRACE [facility] Comment on above: Performed By: #### E RUR ####[facility] Jxpxcjozrr[address] [place], [place] [address]Dr. Elba Anthony UR MICRO IND NOT INDICATED Normal [facility] Comment on above: Performed By: #### E RUR ####[facility] U[address]uncphtl[address] [place], [place] [address]Dr. Elba Anthony Urobilinogen Qn (U) 0.2 {Caden'U}/dL Normal 0.2 - 1. 0 [facility] Comment on above: Performed By: #### E RUR ####[facility] Ufvmellqht[address] [place], [place] [address]Dr. Elba Anthony PROF 14(COMP METB)on 022 Albumin [Mass/Vol] 3.3 g/dL Critically low 3.4-5.0 [facility] Comment on above: Performed By: #### H STROPN, BNP, CMP ####[facility] Oivdugsdnf[address] [place], [place] [address]Dr. Elba Anthony Albumin/Globulin [Mass ratio] 0.8 {ratio} Normal [facility] Comment on above: Performed By: #### H STROPN, BNP, CMP ####[facility] Foskbnmmdp5907 [place] [address]Dr. Elba Anthony ALP [Catalytic activity/Vol] 114 U/L Normal 46-116 [facility] Comment on above: Performed By: #### H STROPN, BNP, CMP ####[facility] Mrvjoncwzf9357 [place] [address]Dr. Elba Anthony ALT [Catalytic activity/Vol] 23 U/L Normal 16-63 [facility] Comment on above: Performed By: #### H STROPN, BNP, CMP ####[facility] Dydckclqru6510 [place] [address]Dr. Elba Anthony Anion gap [Moles/Vol] 9.5 mmol/L Normal [facility] Comment on above: Performed By: #### H STROPN, BNP, CMP ####[facility] Tolsppyyqs7118 [place] [address]Dr. Elba Anthony AST [Catalytic activity/Vol] 32 U/L Normal 15-37 [facility] Comment on above: Performed By: #### H STROPN, BNP, CMP ####[facility] Ueogqvhfpk1206 [place] [address]Dr. Elba Anthony Bilirubin [Mass/Vol] 0.7 mg/dL Normal 0.2-1.0 [facility] Comment on above: Performed By: #### H STROPN, BNP, CMP ####[facility] Lwfizyhhed64[address] [place] [address]Dr. Elba Anthony Calcium [Mass/Vol] 9.1 mg/dL Normal 8.5-10.1 [facility] Comment on above: Performed By: #### H STROPN, BNP, CMP ####[facility] Fsaultxect29[address] [place] [address]Dr. Elba Anthony Chloride [Moles/Vol] 99 mmol/L Normal 98-107 [facility] Comment on above: Performed By: #### H STROPN, BNP, CMP ####[facility] Lgrphccesf9472 [place] [address]Dr. Elba Anthony CO2 [Moles/Vol] 33.2 mmol/L Critically high 21.0-32.0 [facility] Comment on above: Performed By: #### H STROPN, BNP, CMP ####[facility] Ttbbzcnncy8886 [place] [address]Dr. Elba Anthony Creatinine [Mass/Vol] 2.31 mg/dL Critically high 0.70-1.30 [facility] Comment on above: Performed By: #### H STROPN, BNP, CMP ####[facility] Beakwkcvgn[address]65 [place] [address]Dr. Elba Anthony EGFR-AF SOMALI 34 mL/min/1.73m2 Critically low >=60 [facility] Comment on above: Performed By: #### H STROPN, BNP, CMP ####[facility] Tbkgromtxw1478 [place] [address]Dr. Elba Anthony EGFR-NON AF SOMALI 28 mL/min/1.73m2 Critically low >=60 [facility] Comment on above: Performed By: #### H STROPN, BNP, CMP ####[facility] Nvlnlgtsvy[address] [place], [place] [address]Dr. Elba Anthony Globulin (S) [Mass/Vol] 4.3 g/dL Normal [facility] Comment on above: Performed By: #### H STROPN, BNP, CMP ####[facility] Htbbeeddpx1092 [place] [address]Dr. Elba Anthony Glucose [Mass/Vol] 98 mg/dL Normal 74-106 [facility] Comment on above: Performed By: #### H STROPN, BNP, CMP ####[facility] Bvtcckkpef9460 [place] [address]Dr. Elba Anthony Potassium [Moles/Vol] 4.7 mmol/L Normal 3.5-5.1 [facility] Comment on above: Performed By: #### H STROPN, BNP, CMP ####[facility] Ybchehygfi9820 [place] [address]Dr. Elba Anthony Protein [Mass/Vol] 7.6 g/dL Normal 6.4-8.2 [facility] Comment on above: Performed By: #### H GUILLERMINA, BNP, CMP ####[facility] Amnzlecmmn6278 [place] [address]Dr. Elba Anthony Sodium [Moles/Vol] 137 mmol/L Normal 136-145 [facility] Comment on above: Performed By: #### H GUILLERMINA, BNP, CMP ####[facility] Efdxogxbeu6393 [place] [address]Dr. Elba Anthony Urea nitrogen [Mass/Vol] 47.0 mg/dL Critically high 7.0-18.0 [facility] Comment on above: Performed By: #### H GUILLERMINA BNP, CMP ####[facility] Nfrtgfkxtx[address] [place], [place] [address]Dr. Elba Anthony Urea nitrogen/Creatinine [Mass ratio] 20.3 mg/mg Normal [facility] Comment on above: Performed By: #### H GUILLERMINA, BNP, CMP ####[facility] Mubhkbwfsh[address] [place], [place] [address]Dr. Elba Anthony PROTIMEon 07-10-2022 INR Coag (PPP) [Relative time] 1.07 {INR} Normal [facility] Comment on above: Performed By: #### P T, PTT ####[facility] Rymelec[address] [place], [place] [address]Dr. Elba Anthony INR GUIDELINES SEE BELOW Normal [facility] Comment on above: Result Comment: FUAD RED INR: 2.0 - 3.0 CONDITIONS NOT LISTED BELOW 2.5 - 3.5 FOR PROSTHETIC HEART VALVE REPLACEMENT 2.5 - 3.5 RECURRENT THROMBOSIS Performed By: #### P T, PTT ####[facility] Gxmazmsbuc[address] [place], [place] [address]Dr. Elba Anthony PT Coag (PPP) [Time] 11.5 s Normal 9.0-11.6 [facility] Comment on above: Performed By: #### P T, PTT ####[facility] J[address]fx[address]bbqhr[address] [place], [place] [address]DrLatoya Anthony PTTon 07-10-2022 aPTT Coag (Bld) [Time] 34.7 s Normal 22.3-36.2 Th e [facility] Comment on above: Performed By: #### P T, PTT ####[facility] K[address]ke[address] [place], [place] [address]KdLatoya Anthony TROPONIN, HIGH SENSITIVITYon 07-10-2022 HSTROP 45.2 pg/mL Normal 4.0-76.1 [facility] Comment on above: Result Comment: CUT- OFF POINTS HAVE BEEN ESTABLISHED BASED ON THE FOURTH UNIVERSAL DEFINITIONS OF MYOCARDIALINFARCTION. THE UPPER REFERENCE LIMIT (URL) OF TROPONIN, DEFINED THE 99TH PERCENTILE OFcTnI DISTRIBUTION IN A REFERENCE POPULATION, HAS BEEN CONFIRMED THE DECISION THRESHOLDFOR OR DIAGNOSIS. Performed By: #### H STROPN, BNP, CMP ####[facility] Flowewxdrf8025 [place], [place] [address]Ak. Elba Anthony XR CHEST 1 Von 07-10-2022 XR CHEST 1 V Normal [facility] US venous duplex LE BIon US venous duplex LE BI [facility] [place] [address] Ultrasound Report Signed Patient: Man Patel MR#: [id number] : 1950 Acct:[id number] Age/Sex: 72 / M ADM Date: 06/27/22 Loc: ER Room: Type: [facility] ER Attending Dr: Ordering Provider: Melva Owusu APRN Date of Service: 06/27/22 US/US venous duplex LE BI: swelling/ pain Copies to: GAIL Alexandre DO BILATERAL LOWER EXTREMITY VENOUS DUPLEX INDICATION: [...] Balwinder Watson MD06/28/2022 8:49 AM Dictation Location: [place] [address] Tech: Mayra Henry Transcribed By: [facility] 06/28/22848 Dictated By: Balwinder Watson MD 06/28/22848 Signed By: 06/28/22848 Normal [facility] Activated partial thrombopla stin time (aPTT) in platelet poor plasma by coagulation aOrdered By: Melva Owusu on 06-27-2022 aPTT Coag (PPP) [Time] 36.4 s 25.1-36.5 [facility] Albumin [Mass/volume] in Ser um or PlasmaOrdered By: Melva Owusu on 06-27-2022 Albumin [Mass/Vol] 3.1 g/dL 3.2-5.5 [facility] B-Type Natriuretic Peptideon 06-27-2022 Natriuretic peptide B (Bld) [Mass/Vol] 367.0 pg/mL High 5-100 [facility] Comment on above: Result Comment: PERF ORMED BY: [place] [address] [address]ERIAL OPER[address] GARCIA M.D. Performed By: #### S JORGE [facility] #### [address] Basophils Auto (Bld) [#/Vol] Ordered By: Melva Owusu on 06-27-2022 Basophils (Bld) [#/Vol] 0.0 10*3/uL 0.0-0.2 [facility] Basophils/100 WBC Auto (Bld) Ordered By: Melva Owusu on 06-27-2022 Basophils/100 WBC (Bld) 0.6 % . [facility] Bilirubin Test strip Ql (U)O rdered By: Melva Owusu on 06-27-2022 Bilirubin Ql (U) Negative Negative [facility] Blood Cultureon 06-27-2022 Bacteria identified Cx Nom (Bld) NO GROWTH 5 DAYS PERFORMED BY: [place] [address] [address] B[address] GARCIA M.D. [facility] Comment on above: Performed By: #### C UBLD, LACTIC #### [facility] [address] Bacteria identified Cx Nom (Bld) NO GROWTH 5 DAYS PERFORMED BY: [address] [place] [address] [address] C[address] BULK [address]ERIAL O[address] GARCIA M.D. [facility] Comment on above: Performed By: #### C UBLD, LACTIC #### [facility] [address] [place] [address] COVID-19 Antigenon 2 COVID-19 Antigen Healthcare Worker?: [...] developed and its performance characteristic determined by [employer] and validated at [facility]. This test has not been FDA cleared [...] for SARS Antigen by MORIAH PERFORMED BY: [place] [address] PATH[address] CEMENTING B[employer]K MATERIAL OPER[address] A[address] GARCIA M.D. Normal [facility] Comment on above: Performed By: #### S OFCATALINA, COVID-19 JOSE #### [facility] [address] [place] [address] COVID-19 SOFIAOrdered By: Fito Chavarria on 06-27-2022 SARS-CoV+SARS-CoV-2 (COVID-19) Ag IA.rapid Ql (Resp) Negative Negative [facility] Comment on above: This is a duplicate Jose SARS Antigen (MORIAH) result to be used for statistical tracking purpose only. Coagulation Profileon 2021 aPTT Coag (Bld) [Time] 36.4 s Normal 25.1-36.5 [facility] Comment on above: Result Comment: PERF ORMED BY: [place] [address] [address]ING B[address] [address] GARCIA M.D. Performed By: #### S OFCATALINA, COVID-19 JOSE #### [facility] [address] [place] [address] INR Coag (PPP) [Relative time] 1.5 {INR} Normal [facility] Comment on above: Result Comment: INR Therapeutic [...] 3 - 4.5 Performed By: #### S OFIANEG, COVID-19 JOSE #### [address] PT Coag (PPP) [Time] 17.3 s High 9.0-12.9 [facility] Comment on above: Performed By: #### S JORGE, COVID-19 JOSE #### [facility] [address] Color Auto (U)Ordered By: Lisa Owusu on 06-27-2022 Color (U) Yellow Yellow [facility] Complete Blood Count Auto Di ffon 06-27-2022 Basophils (Bld) [#/Vol] 0.0 10*3/uL Normal 0.0-0.2 [facility] Comment on above: Result Comment: PERF ORMED BY: [place] [address] [address]ING B[employer] O[address] GARCIA M.D. Performed By: #### B RIVET DRIVER, CBC, PP, CMP #### [address] Basophils/100 WBC (Bld) 0.6 % Normal . [facility] Comment on above: Performed By: #### B RIVET DRIVER, CBC, PP, CMP #### [facility] [address] Eosinophils (Bld) [#/Vol] 0.6 10*3/uL High 0.0-0.45 [facility] Comment on above: Performed By: #### B RIVET DRIVER, CBC, PP, CMP #### [address] Eosinophils/100 WBC (Bld) 9.4 % Normal . [facility] Comment on above: Performed By: #### B RIVET DRIVER, CBC, PP, CMP #### [address] Erythrocyte distribution width (RBC) [Ratio] 24.6 % High 12.0-14.8 [facility] Comment on above: Performed By: #### B RIVET DRIVER, CBC, PP, CMP #### [address] Hematocrit (Bld) [Volume fraction] 39.7 % Normal 38.8-50.0 [facility] Comment on above: Performed By: #### B RIVET DRIVER, CBC, PP, CMP #### [address] Hemoglobin (Bld) [Mass/Vol] 12.9 g/dL Low 13.0-17.0 [facility] Comment on above: Performed By: #### B RIVET DRIVER, CBC, PP, CMP #### [address] Lymphocytes (Bld) [#/Vol] 0.6 10*3/uL Low 1.00-4.8 [facility] Comment on above: Performed By: #### B RIVET DRIVER, CBC, PP, CMP #### [address] Lymphocytes/100 WBC (Bld) 9.3 % Normal . [facility] Comment on above: Performed By: #### B RIVET DRIVER, CBC, PP, CMP #### [address] MCH (RBC) [Entitic mass] 26.8 pg Low 27.5-35.2 [facility] Comment on above: Performed By: #### B RIVET DRIVER, CBC, PP, CMP #### [address] MCV (RBC) [Entitic vol] 82.7 fL Low 83.5-101 [facility] Comment on above: Performed By: #### B RIVET DRIVER, CBC, PP, CMP #### [address] Mean Corpuscular HGB Conc 32.4 g/dL Low 32.5-35.6 [facility] Comment on above: Performed By: #### B RIVET DRIVER, CBC, PP, CMP #### [address] Monocytes (Bld) [#/Vol] 0.6 10*3/uL Normal 0.0-0.8 [facility] Comment on above: Performed By: #### B RIVET DRIVER, CBC, PP, CMP #### [address] Monocytes/100 WBC (Bld) 9.4 % Normal . [facility] Comment on above: Performed By: #### B RIVET DRIVER, CBC, PP, CMP #### [address] Neutrophils (Bld) [#/Vol] 4.7 10*3/uL Normal 1.8-7.7 [facility] Comment on above: Performed By: #### B RIVET DRIVER, CBC, PP, CMP #### [facility] [address] Neutrophils/100 WBC (Bld) 71.3 % Normal . [facility] Comment on above: Performed By: #### B RIVET DRIVER, CBC, PP, CMP #### [address] Nucleated RBC/100 WBC (Bld) [Ratio] 0.0 % Normal 0-0.5 [facility] Comment on above: Performed By: #### B RIVET DRIVER, CBC, PP, CMP #### [address] Platelet mean volume (Bld) [Entitic vol] 8.0 fL Normal 6.6-10.1 [facility] Comment on above: Performed By: #### B RIVET DRIVER, CBC, PP, CMP #### [place] [address] [place] Platelets (Bld) [#/Vol] 163 10*3/uL Normal 150-450 [facility] Comment on above: Performed By: #### B RIVET DRIVER, CBC, PP, CMP #### [place] [address] [place] RBC (Bld) [#/Vol] 4.80 10*6/uL Normal 3.90-5.60 [facility] Comment on above: Performed By: #### B RIVET DRIVER, CBC, PP, CMP #### [place] [address] [place] WBC (Bld) [#/Vol] 6.5 10*3/uL Normal 4.5-11.0 [facility] Comment on above: Performed By: #### B RIVET DRIVER, CBC, PP, CMP #### [facility] [address] Comprehensive Metabolic Pane jeff 06-27-2022 Albumin [Mass/Vol] 3.1 g/dL Low 3.2-5.5 [facility] Comment on above: Performed By: #### B RIVET DRIVER, CBC, PP, CMP #### [facility] [address] Albumin/Globulin [Mass ratio] 0.8 {ratio} Normal [facility] Comment on above: Performed By: #### B RIVET DRIVER, CBC, PP, CMP #### [facility] [address] ALP [Catalytic activity/Vol] 98 U/L High - [facility] Comment on above: Performed By: #### B RIVET DRIVER, CBC, PP, CMP #### [address] ALT [Catalytic activity/Vol] 28 U/L Normal 10- [facility] Comment on above: Performed By: #### B RIVET DRIVER, CBC, PP, CMP #### [facility] [address] Anion gap [Moles/Vol] 15.0 mmol/L Normal 6.0-15.0 [facility] Comment on above: Performed By: #### B RIVET DRIVER, CBC, PP, CMP #### [address] AST [Catalytic activity/Vol] 32 U/L Normal 10 [facility] Comment on above: Performed By: #### B RIVET DRIVER, CBC, PP, CMP #### [facility] [address] [place] [address] [place] Bilirubin [Mass/Vol] 0.9 mg/dL Normal 0.3-1.2 [facility] Comment on above: Performed By: #### B RIVET DRIVER, CBC, PP, CMP #### [facility] [address] Calcium [Mass/Vol] 9.4 mg/dL Normal 8.2-10.2 [facility] Comment on above: Performed By: #### B RIVET DRIVER, CBC, PP, CMP #### [address] Chloride [Moles/Vol] 96 mmol/L Normal 95-114 [facility] Comment on above: Performed By: #### B RIVET DRIVER, CBC, PP, CMP #### [address] CO2 [Moles/Vol] 28.8 mmol/L Normal 22.0-30.0 [facility] Comment on above: Performed By: #### B RIVET DRIVER, CBC, PP, CMP #### [address] Creatinine [Mass/Vol] 2.48 mg/dL High 0.64-1.27 [facility] Comment on above: Performed By: #### B RIVET DRIVER, CBC, PP, CMP #### [address] Creatinine Clr Calc Pharmacy 33.36 [facility] Comment on above: Result Comment: PERF ORMED BY: [place] [address] [address] BULK MATERIAL OPER[address] GARCIA M.D. Performed By: #### B RIVET DRIVER, CBC, PP, CMP #### [address] Estimated GFR ( Andra 31 [facility] Comment on above: Result Comment: GFR estimated reference range: According to KDOQI guidelines, <60 ml/min/1.73m2 is sufficient to diagnose a patient with chronic kidney disease. Performed By: #### B RIVET DRIVER, CBC, PP, CMP #### [address] Estimated GFR (Non- Am 26 [facility] Comment on above: Performed By: #### B RIVET DRIVER, CBC, PP, CMP #### [address] Globulin (S) [Mass/Vol] 4.1 g/dL [facility] Comment on above: Performed By: #### B RIVET DRIVER, CBC, PP, CMP #### [facility] [address] [place] [address] [place] Glucose [Mass/Vol] 128 mg/dL High 70-100 [facility] Comment on above: Result Comment: [place] Glucose Reference Range is dependent on time and content of last meal. Glucose of more than 200 mg/dL in a nonstressed, ambulatory subject supports the diagnosis of Diabetes Mellitus. ADA recommended reference range Performed By: #### B RIVET DRIVER, CBC, PP, CMP #### [facility] [address] Potassium [Moles/Vol] 3.8 mmol/L Normal 3.5-5.1 [facility] Comment on above: Performed By: #### B RIVET DRIVER, CBC, PP, CMP #### [facility] [address] [place] [address] [place] Protein [Mass/Vol] 7.2 g/dL Normal 6.1-7.9 [facility] Comment on above: Performed By: #### B RIVET DRIVER, CBC, PP, CMP #### [facility] [address] [place] [address] [place] Sodium [Moles/Vol] 136 mmol/L Normal 136-146 [facility] Comment on above: Performed By: #### B RIVET DRIVER, CBC, PP, CMP #### [facility] [address] [place] [address] [place] Urea nitrogen [Mass/Vol] 40 mg/dL High 9-23 [facility] Comment on above: Performed By: #### B RIVET DRIVER, CBC, PP, CMP #### [facility] [address] [place] [address] [place] Creatinine and Glomerular fi ltration rate.predicted panel (S/P/Bld)Ordered By: Melva Owusu on 06-27-2022 Creatinine [Mass/Vol] 2.48 mg/dL 0.64-1.27 [facility] Eosinophils Auto (Bld) [#/Vo l]Ordered By: Melva Owusu on 06-27-2022 Eosinophils (Bld) [#/Vol] 0.6 10*3/uL 0.0-0.45 [facility] Eosinophils/100 WBC Auto (Bl d)Ordered By: Melva Owusu on 06-27-2022 Eosinophils/100 WBC (Bld) 9.4 % . [facility] Erythrocyte distribution wid th Auto (RBC) [Ratio]Ordered By: Melva Owusu on 06-27-2022 Erythrocyte distribution width (RBC) [Ratio] 24.6 % 12.0-14.8 [facility] Estimated glomerular filtrat ion rate (GFR) non- AmericanOrdered By: Melva Owusu on 06-27-2022 GFR/1.73 sq M.predicted among non-blacks MDRD (S/P/Bld) [Vol rate/Area] 26 mL/Min [facility] Globulin Calc (S) [Mass/Vol] Ordered By: Melva Owusu on 06-27-2022 Globulin (S) [Mass/Vol] 4.1 g/dL [facility] Hematocrit Auto (Bld) [Volum e fraction]Ordered By: Melva Owusu on 06-27-2022 Hematocrit (Bld) [Volume fraction] 39.7 % 38.8-50.0 [facility] Hemoglobin [Mass/volume] in BloodOrdered By: Melva Owusu on 06-27-2022 Hemoglobin (Bld) [Mass/Vol] 12.9 g/dL 13.0-17.0 [facility] Ketones Auto test strip (U) [Mass/Vol]Ordered By: Melva Owusu on 06-27-2022 Ketones (U) [Mass/Vol] Negative Negative [facility] Laboratory - Chemistry and C hemistry - challengeOrdered By: Melva Owusu on 06-27-2022 Natriuretic peptide B (Bld) [Mass/Vol] 367.0 pg/mL 5-100 [facility] Laboratory - CoagulationOrde red By: Melva Owusu on 06-27-2022 PT Coag (PPP) [Time] 17.3 s 9.0-12.9 [facility] Laboratory - Hematology and Cell countsOrdered By: Melva Owusu on 06-27-2022 Nucleated RBC/100 WBC (Bld) [Ratio] 0.0 % 0-0.5 [facility] Lactic Acidon 06-27-2022 Lactate [Moles/Vol] 1.7 mmol/L Normal 0.5-2.2 [facility] Comment on above: Result Comment: PERF ORMED BY: [place] [address] [address]ING [employer]PER[address] GARCIA M.D. Performed By: #### C UBLD, LACTIC #### [facility] [address] Leukocytes [#/volume] in Blo od by Automated countOrdered By: Melva Owusu on 06-27-2022 WBC (Bld) [#/Vol] 6.5 10*3/uL 4.5-11.0 [facility] Lymphocytes Auto (Bld) [#/Vo l]Ordered By: Melva Owusu on 06-27-2022 Lymphocytes (Bld) [#/Vol] 0.6 10*3/uL 1.00-4.8 [facility] Lymphocytes/100 WBC Auto (Bl d)Ordered By: Melva Owusu on 06-27-2022 Lymphocytes/100 WBC (Bld) 9.3 % . [facility] MCH Auto (RBC) [Entitic mass ]Ordered By: Melva Owusu on 06-27-2022 MCH (RBC) [Entitic mass] 26.8 pg 27.5-35.2 [facility] MCHC Auto (RBC) [Mass/Vol]Or dered By: Melva Owusu on 06-27-2022 MCHC (RBC) [Mass/Vol] 32.4 g/dL 32.5-35.6 [facility] MCV Auto (RBC) [Entitic vol] Ordered By: Melva Owusu on 06-27-2022 MCV (RBC) [Entitic vol] 82.7 fL 83.5-101 [facility] Monocytes Auto (Bld) [#/Vol] Ordered By: Melva Owusu on 06-27-2022 Monocytes (Bld) [#/Vol] 0.6 10*3/uL 0.0-0.8 [facility] Monocytes/100 WBC Auto (Bld) Ordered By: Melva Owusu on 06-27-2022 Monocytes/100 WBC (Bld) 9.4 % . [facility] Neutrophils Auto (Bld) [#/Vo l]Ordered By: Melva Owusu on 06-27-2022 Neutrophils (Bld) [#/Vol] 4.7 10*3/uL 1.8-7.7 [facility] Neutrophils/100 WBC Auto (Bl d)Ordered By: Melva Owusu on 06-27-2022 Neutrophils/100 WBC (Bld) 71.3 % . [facility] Nitrite Test strip Ql (U)Ord ered By: Melva Owusu on 06-27-2022 Nitrite Ql (U) Negative Negative [facility] No Panel InformationOrdered By: Melva Owusu on 06-27-2022 Estimated GFR () 31 mL/Min [facility] Comment on above: GFR estimated refere nce range: According to KDOQI guidelines, <60 ml/min/1.73m2 is sufficient to diagnose a patient with chronic kidney disease. Pharmacy Creatinine Clearance (Chem 33.36 [facility] No Panel InformationOrdered By: Balwinder Chavarria on 06-27-2022 SARS Antigen (LFIA) [facility] Platelet mean volume Auto (B ld) [Entitic vol]Ordered By: Melva Owusu on 06-27-2022 Platelet mean volume (Bld) [Entitic vol] 8.0 fL 6.6-10.1 [facility] Platelet poor plasma interna tional normalized ratio (INR) by coagulation assay (relatOrdered By: Melva Owusu on 06-27-2022 INR Coag (PPP) [Relative time] 1.5 {INR} [facility] Comment on above: INR Therapeutic Rang e [...] 06-27-2022 Platelets (Bld) [#/Vol] 163 10*3/uL 150-450 [facility] Protein Auto test strip (U) [Mass/Vol]Ordered By: Melva Owusu on 06-27-2022 Protein (U) [Mass/Vol] Negative Negative [facility] Protein [Mass/volume] in Ser um or PlasmaOrdered By: Melva Owusu on 06-27-2022 Protein [Mass/Vol] 7.2 g/dL 6.1-7.9 [facility] RBC Auto (Bld) [#/Vol]Ordere d By: Melva Owusu on 06-27-2022 RBC (Bld) [#/Vol] 4.80 10*6/uL 3.90-5.60 [facility] Serum or plasma alanine [place] otransferase measurement without P-5'-P (enzymatic activiOrdered By: Melva Owusu on 06-27-2022 ALT No additional P-5'-P [Catalytic activity/Vol] 28 U/L [facility] Serum or plasma albumin/glob ulin mass ratioOrdered By: Melva Owusu on 06-27-2022 Albumin/Globulin [Mass ratio] 0.8 {ratio} [facility] Serum or plasma alkaline mumtaz sphatase measurement (enzymatic activity/volume)Ordered By: Melva Owusu on 06-27-2022 ALP [Catalytic activity/Vol] 98 U/L 32-92 [facility] Serum or plasma anion gap de terminationOrdered By: Melva Owusu on 06-27-2022 Anion gap [Moles/Vol] 15.0 mmol/L 6.0-15.0 [facility] Serum or plasma aspartate am inotransferase measurement (enzymatic activity/volume)Ordered By: Melva Owusu 06-27-2022 AST [Catalytic activity/Vol] 32 U/L 1042 [facility] Serum or plasma calcium brii urement (mass/volume)Ordered By: Melva Owusu on 10-20-2022 Calcium [Mass/Vol] 9.4 mg/dL 8.2-10.2 [facility] Serum or plasma chloride edgar surement (moles/volume)Ordered By: Melva Owusu on 06-27-2022 Chloride [Moles/Vol] 96 mmol/L 95-114 [facility] Serum or plasma glucose brii urement (mass/volume)Ordered By: Melva Owusu on 06-27-2022 Glucose [Mass/Vol] 128 mg/dL 70-100 [facility] Comment on above: ADA recommended refe rence rangeRandom Glucose Reference Range is dependent on time and content of last meal. Glucose of more than 200 mg/dL in a nonstressed, ambulatory subject supports the diagnosis of Diabetes Mellitus. Serum or plasma potassium me asurement (moles/volume)Ordered By: Melva Owusu on 06-27-2022 Potassium [Moles/Vol] 3.8 mmol/L 3.5-5.1 [facility] Serum or plasma sodium measu rement (moles/volume)Ordered By: Melva Owusu on 06-27-2022 Sodium [Moles/Vol] 136 mmol/L 136-146 [facility] Serum or plasma total biliru bin measurement (mass/volume)Ordered By: Melva Owusu on 06-27-2022 Bilirubin [Mass/Vol] 0.9 mg/dL 0.3-1.2 [facility] Serum or plasma total carbon dioxide measurement (moles/volume)Ordered By: Melva Owusu on 06-27-2022 CO2 [Moles/Vol] 28.8 mmol/L 22.0-30.0 [facility] Serum or plasma urea nitroge n measurement (mass/volume)Ordered By: Melva Owusu on 06-27-2022 Urea nitrogen [Mass/Vol] 40 mg/dL 9- [facility] Jose Ag Negativeon 06-27-20 Jose Ag Negative Negative Normal Negative [facility] Comment on above: Result Comment: This is a duplicate Jose SARS Antigen (MORIAH) result to be used for statistical tracking purpose only. PERFORMED BY: [facility] [address] [place] [address] [address]ING [employer] OPER[address] A[address] GARCIA M.D. Performed By: #### S OFIANEG, COVID-19 JOSE #### [facility] [address] [place] [address] [place] Specific gravity Auto test s trip (U) [Rel density]Ordered By: Melva Owusu on 06-27-2022 Specific gravity (U) [Rel density] 1.012 1.001-1.030 [facility] Urinalysison 06-27-2022 Appearance (U) Clear Normal Clear [facility] Comment on above: Order Comment: Name Collection Type:: Clean-Voided Midstream Performed By: #### U A #### [facility] [address] [place] [address] [place] Bilirubin,Urine Negative Normal Negative [facility] Comment on above: Order Comment: Name Collection Type:: Clean-Voided Midstream Performed By: #### U A #### [facility] [address] [place] [address] [place] Color (U) Yellow Normal Yellow [facility] Comment on above: Order Comment: Name Collection Type:: Clean-Voided Midstream Performed By: #### U A #### [facility] [address] [place] [address] [place] Glucose Ql (U) Normal Normal Normal [facility] Comment on above: Order Comment: Name Collection Type:: Clean-Voided Midstream Performed By: #### U A #### [facility] [address] [place], [place] [address] [place] Ketones Ql (U) Negative Normal Negative [facility] Comment on above: Order Comment: Name Collection Type:: Clean-Voided Midstream Performed By: #### U A #### [facility] [address] [place] [id number] [place] Leukocyte esterase Test strip Ql (U) Negative Normal Negative [facility] Comment on above: Order Comment: Name Collection Type:: Clean-Voided Midstream Performed By: #### U A #### [facility] [address] [place], [place] [address] [place] Nitrite,Urine Negative Normal Negative [facility] Comment on above: Order Comment: Name Collection Type:: Clean-Voided Midstream Performed By: #### U A #### [facility] [address] [place] [address] [place] Occult Blood,Urine Negative Normal Negative [facility] Comment on above: Order Comment: Name Collection Type:: Clean-Voided Midstream Result Comment: PERF ORMED BY: [place] [address] [address]ING [employer]PER[address] A[address] GARCIA M.D. Performed By: #### U A #### [facility] [address] [place] [address] pH (U) 6.0 [pH] Normal 5.0-9.0 [facility] Comment on above: Order Comment: Name Collection Type:: Clean-Voided Midstream Performed By: #### U A #### [place] [address] [place] Protein,Urine Negative Normal Negative [facility] Comment on above: Order Comment: Name Collection Type:: Clean-Voided Midstream Performed By: #### U A #### [place] [address] [place] Specificy Alfred,Urine 1.012 Normal 1.001-1.030 [facility] Comment on above: Order Comment: Name Collection Type:: Clean-Voided Midstream Performed By: #### U A #### [facility] [address] [place] [address] [place] Urobilinogen,Urine Normal Normal Normal [facility] Comment on above: Order Comment: Name Collection Type:: Clean-Voided Midstream Performed By: #### U A #### [facility] [address] [place] [address] [place] Urine clarity by refractomet ry automatedOrdered By: Melva Owusu on 06-27-2022 Clarity Refractometry automated (U) Clear Clear [facility] Urine glucose measurement by automated test strip (mass/volume)Ordered By: Melva Owusu on 06-27-2022 Glucose Auto test strip (U) [Mass/Vol] Normal mg/dL Normal [facility] Urine hemoglobin detection b y automated test stripOrdered By: Melva Owusu on 06-27-2022 Hemoglobin Auto test strip Ql (U) Negative Negative [facility] Urine lactic acid measuremen tOrdered By: Melva Owusu on 06-27-2022 Lactate (U) [Moles/Vol] 1.7 mmol/L 0.5-2.2 [facility] Urine leukocyte esterase det ection by automated test stripOrdered By: Melva Owusu on 06-27-2022 Leukocyte esterase Auto test strip Ql (U) Negative Negative [facility] Urobilinogen Auto test strip (U) [Mass/Vol]Ordered By: Melva Owusu on 06-27-2022 Urobilinogen (U) [Mass/Vol] Normal mg/dL Normal [facility] XR chest 2V*on 06-27-2022 XR chest 2V* [facility] [place] [address] XRay Report Signed Patient: Man Patel MR#: [id number] : 1950 Acct:[id number] Age/Sex: 72 / M ADM Date: 06/27/22 Loc: ER Room: Type: [facility] ER Attending Dr: Copies to: GAIL Alexandre [...] Cris Johnson M.D.06/27/2022 3:42 PM Dictation Location: [place] [address] Transcribed By: KELLI 06/27/221541 Dictated By: Cris Johnson MD 06/27/221539 Signed By: 06/27/221541 Normal [facility] pH Auto test strip (U)Ordere d By: Melva Owusu on 06-27-2022 pH (U) 6.0 [pH] 5.0-9.0 [facility] ECHOCARDIO M/2D COMPLETEon 1 ECHOCARDIO M/2D COMPLETE Normal [facility] BASIC METABOLIC PANELon 09-0 Calcium [Mass/Vol] 8.6 mg/dL Normal 8.6-10.3 [facility] Comment on above: Order Comment: Yes: Add to Previous draw if able Performed By: #### 5 0103 #### [facility] [address] [place] [address], [facility] Chloride [Moles/Vol] 97 mmol/L Low 98-107 [facility] Comment on above: Order Comment: Yes: Add to Previous draw if able Performed By: #### 5 0103 #### [facility] [address] [place] [address], [facility] CO2 [Moles/Vol] 30 mmol/L Normal 21-31 [facility] Comment on above: Order Comment: Yes: Add to Previous draw if able Performed By: #### 5 0103 #### [facility] [address] [place] [address], [facility] Creatinine [Mass/Vol] 2.14 mg/dL High 0.70-1.30 [facility] Comment on above: Order Comment: Yes: Add to Previous draw if able Performed By: #### 5 0103 #### [facility] [address] [place] [address], [facility] EGFR 32 ml/min/1.73sq m Abnormal >60 [facility] Comment on above: Order Comment: Yes: Add to Previous draw if able Result Comment: [facility]'s estimated glomerular filtration rate (eGFR) [...] individuals. Performed By: #### 5 0103 #### [facility] [address] [facility]. [address] Glucose [Mass/Vol] 90 mg/dL Normal 70-100 [facility] Comment on above: Order Comment: Yes: Add to Previous draw if able Performed By: #### 5 0103 #### [facility] [address] [place] [address], [facility] Potassium [Moles/Vol] 3.7 mmol/L Normal 3.5-5.1 [facility] Comment on above: Order Comment: Yes: Add to Previous draw if able Performed By: #### 5 0103 #### [facility] [address] [place] [address], [facility] Sodium [Moles/Vol] 135 mmol/L Low 136-145 [facility] Comment on above: Order Comment: Yes: Add to Previous draw if able Performed By: #### 5 0103 #### [facility] [address] [place] [address], [facility] Urea nitrogen [Mass/Vol] 32 mg/dL High 7-25 [facility] Comment on above: Order Comment: Yes: Add to Previous draw if able Performed By: #### 5 0103 #### [facility] [address] *SARS-CoV-2 COVID-19on 05-07 SARS-CoV-2 (COVID-19) RNA ELIZABETH+probe Ql (Unsp spec) Detected Critically abnormal Not Detected [facility] Comment on above: Order Comment: The A ptima SARS-CoV-2 assay is a nucleic acid amplification testintended for the qualitative detection of RNA from SARS-CoV-2 isolatedand purified from nasopharyngeal (RIVET DRIVER), oropharyngeal (OP), nasal swab,sputum, and bronchoalveolar lavage (BAL) specimens from patients withsigns and symptoms of infection who are suspected of COVID-19.Results are for the identification of SARS-CoV-2 RNA. The SARS-CoV-2 RNAis generally detectable during the acute phase of infection.The Aptima SARS-CoV-2 Assay on the [employer] system isintended for use by laboratory personnel specifically instructed andtrained in the operation of the [employer] system. TheAptima SARS-CoV-2 assay is only [...] RNA does not rule out bacterial infection orco-infection with other viruses. Performed By: #### 3 1792 ####[facility] [place] [address], [facility] BASIC METABOLIC PANELon 08-3 0-2021 Calcium [Mass/Vol] 8.4 mg/dL Low 8.6-10.3 [facility] Comment on above: Order Comment: No: D o not add to previous draw Performed By: #### 0 0071, 61511, 47873 ####[facility] [facility] [place] [address], [place] Chloride [Moles/Vol] 97 mmol/L Low 98-107 [facility] Comment on above: Order Comment: No: D o not add to previous draw Performed By: #### 0 0071, [id number], 90533 ####[facility] [place] [address], [facility] CO2 [Moles/Vol] 30 mmol/L Normal 21-31 [facility] Comment on above: Order Comment: No: D o not add to previous draw Performed By: #### 0 0071, 37910, 94325 ####[facility] [place] [address], [facility] Creatinine [Mass/Vol] 2.06 mg/dL High 0.70-1.30 [facility] Comment on above: Order Comment: No: D o not add to previous draw Performed By: #### 0 0071, 21314, 22285 ####[facility] [place] [address], [facility] EGFR 34 ml/min/1.73sq m Abnormal >60 [facility] Comment on above: Order Comment: No: D o not add to previous draw Result Comment: [facility]'s estimated glomerular filtration rate (eGFR) [...] of individuals. Performed By: #### 0 0071, 33569, 71238 ####[facility] [place] [address], [facility] Glucose [Mass/Vol] 86 mg/dL Normal 70-100 [facility] Comment on above: Order Comment: No: D o not add to previous draw Performed By: #### 0 0071, 44872, 25517 ####[facility] [place] [address], [facility] Potassium [Moles/Vol] 3.7 mmol/L Normal 3.5-5.1 [facility] Comment on above: Order Comment: No: D o not add to previous draw Performed By: #### 0 0071, 30403, 24884 ####[facility] Sodium [Moles/Vol] 135 mmol/L Low 136-145 [facility] Comment on above: Order Comment: No: D o not add to previous draw Performed By: #### 0 0071, 99325, 49968 ####[facility] [facility].[address] Urea nitrogen [Mass/Vol] 35 mg/dL High 7-25 [facility] Comment on above: Order Comment: No: D o not add to previous draw Performed By: #### 0 0071, 19848, 07281 ####[facility] CBC COMPLETE BLOOD COUNTon 0 05-07-2022 Erythrocyte distribution width (RBC) [Ratio] 21.2 % High 11.5-15.0 [facility] Comment on above: Order Comment: No: D o not add to previous draw Performed By: #### 5 0608 #### [facility] [address] [facility] [address], [facility] Hematocrit (Bld) [Volume fraction] 36.1 % Low 39.0-50.0 [facility] Comment on above: Order Comment: No: D o not add to previous draw Performed By: #### 5 0608 #### [facility] [address] [facility] [address], [facility] Hemoglobin (Bld) [Mass/Vol] 10.4 g/dL Low 13.0-17.0 [facility] Comment on above: Order Comment: No: D o not add to previous draw Performed By: #### 5 0608 #### [facility] [address] [place] [address], [facility] MCH (RBC) [Entitic mass] 23.6 pg Low 27.0-33.0 [facility] Comment on above: Order Comment: No: D o not add to previous draw Performed By: #### 5 0608 #### [facility] [address] [place] [address], [facility] MCHC (RBC) [Mass/Vol] 28.8 g/dL Low 32.0-35.0 [facility] Comment on above: Order Comment: No: D o not add to previous draw Performed By: #### 5 0608 #### [facility] [address] [place] [id number], [facility] MCV (RBC) [Entitic vol] 81.9 fL Low 82.0-98.0 [facility] Comment on above: Order Comment: No: D o not add to previous draw Performed By: #### 5 0608 #### [facility] [address] [facility] [place] [address], [facility] Nucleated RBC/100 WBC (Bld) [Ratio] 0 % Normal 0-0 [facility] Comment on above: Order Comment: No: D o not add to previous draw Performed By: #### 5 0608 #### [facility] [address] [facility] [place] [address], [facility] PLAT CNT 207 10*3/uL Normal 150-400 [facility] Comment on above: Order Comment: No: D o not add to previous draw Performed By: #### 5 0608 #### [facility] [address] [place] [address], [facility] RBC (Bld) [#/Vol] 4.41 10*6/uL Normal 4.20-5.70 [facility] Comment on above: Order Comment: No: D o not add to previous draw Performed By: #### 5 0608 #### [facility] [address] [place] [address], [facility] WBC (Bld) [#/Vol] 4.60 10*3/uL Normal 4.00-10.60 [facility] Comment on above: Order Comment: No: D o not add to previous draw Performed By: #### 5 0608 #### [facility] [address] [place] [address], [facility] MAGNESIUM BLOODon 05-07-2022 Magnesium [Mass/Vol] 2.3 mg/dL Normal 1.9-2.7 [facility] Comment on above: Order Comment: No: D o not add to previous draw Performed By: #### 0 0071, [id number], 86743 ####[facility] [place] [address], [facility] PHOSPHORUS BLOODon Phosphate [Mass/Vol] 2.6 mg/dL Normal 2.5-5.0 [facility] Comment on above: Order Comment: No: D o not add to previous draw Performed By: #### 0 0071, [id number], 12213 ####[facility] POC SARS COV2 ANTIGEN POSITI VEon 05-07-2022 POC SARS COV2 ANTIGEN POS Positive Critically abnormal NEGATIVE [facility] Comment on above: Result Comment: Posi tive results indicate the presence of viral antigens, but clinical correlation with patient history and other diagnostic information is necessary to determine infection status. Positive results do not rule out bacterial infection or co-infection with other viruses. The agent detected may not be the definite cause of disease. Laboratories within the [facility] and its territories are required to report all results to the appropriate public health authorities. The Clarity COVID-19 Antigen Rapid Test Cassette is a rapid chromatographic immunoassay intended for the qualitative detection of the nucleocapsid protein antigen from SARS-CoV-2 in direct nasopharyngeal swab (RIVET DRIVER) specimens from individuals who are suspected of [...] Certificate of Accreditation. Performed By: #### 3 2045 #### [facility] [address] [place] [address], [facility] BASIC METABOLIC PANELon 08-2 Calcium [Mass/Vol] 8.3 mg/dL Low 8.6-10.3 [facility] Comment on above: Order Comment: No: D o not add to previous draw Performed By: #### 7 0207 #### [facility] [address] [place] [address], [facility] Chloride [Moles/Vol] 99 mmol/L Normal 98-107 [facility] Comment on above: Order Comment: No: D o not add to previous draw Performed By: #### 7 0207 #### [facility] [address] [place] [id number], [facility] CO2 [Moles/Vol] 30 mmol/L Normal 21-31 [facility] Comment on above: Order Comment: No: D o not add to previous draw Performed By: #### 7 0207 #### [facility] [address] [place] [address], [facility] Creatinine [Mass/Vol] 2.08 mg/dL High 0.70-1.30 [facility] Comment on above: Order Comment: No: D o not add to previous draw Performed By: #### 7 0207 #### [facility] [address] [facility] EGFR 34 ml/min/1.73sq m Abnormal >60 [facility] Comment on above: Order Comment: No: D o not add to previous draw Result Comment: [facility]'s estimated glomerular filtration rate (eGFR) [...] individuals. Performed By: #### 7 0207 #### [facility] [address] [place] [address], [facility] Glucose [Mass/Vol] 91 mg/dL Normal 70-100 [facility] Comment on above: Order Comment: No: D o not add to previous draw Performed By: #### 7 0207 #### [facility] [address] [place] [address], [facility] Potassium [Moles/Vol] 3.5 mmol/L Normal 3.5-5.1 [facility] Comment on above: Order Comment: No: D o not add to previous draw Performed By: #### 7 0207 #### [facility] [address] [facility] [place] [address], [facility] Sodium [Moles/Vol] 137 mmol/L Normal 136-145 [facility] Comment on above: Order Comment: No: D o not add to previous draw Performed By: #### 7 0207 #### [facility] [address] [place] [address], [facility] Urea nitrogen [Mass/Vol] 36 mg/dL High 7-25 [facility] Comment on above: Order Comment: No: D o not add to previous draw Performed By: #### 7 0207 #### [facility] [address] [facility]. [address] TSH3 WITH REFLEX FT4on 05-06 TSH 3RD GENERATION 2.46 uIU/mL Normal 0.34-5.60 [facility] Comment on above: Performed By: #### 7 0207 #### [facility] [address] [facility] [address], [facility] BASIC METABOLIC PANELon 04-09 Calcium [Mass/Vol] 7.9 mg/dL Low 8.6-10.3 [facility] Comment on above: Order Comment: Check Pacemaker/AICD Lead Position, Chest X-ray PA \EANDE\ LAT in Dept ;DO NOT lift affected arm above shoulder. S/P pacemaker/ICD implant. Verify lead placement Performed By: #### 0 0071 ####[facility] [place] [address], [facility] Chloride [Moles/Vol] 99 mmol/L Normal 98-107 [facility] Comment on above: Order Comment: Check Pacemaker/AICD Lead Position, Chest X-ray PA \EANDE\ LAT in Dept ;DO NOT lift affected arm above shoulder. S/P pacemaker/ICD implant. Verify lead placement Performed By: #### 0 0071 ####[facility] CO2 [Moles/Vol] 28 mmol/L Normal 21-31 [facility] Comment on above: Order Comment: Check Pacemaker/AICD Lead Position, Chest X-ray PA \EANDE\ LAT in Dept ;DO NOT lift affected arm above shoulder. S/P pacemaker/ICD implant. Verify lead placement Performed By: #### 0 0071 ####[facility] Creatinine [Mass/Vol] 2.11 mg/dL High 0.70-1.30 [facility] Comment on above: Order Comment: Check Pacemaker/AICD Lead Position, Chest X-ray PA \EANDE\ LAT in Dept ;DO NOT lift affected arm above shoulder. S/P pacemaker/ICD implant. Verify lead placement Performed By: #### 0 0071 ####[facility] EGFR 33 ml/min/1.73sq m Abnormal >60 [facility] Comment on above: Order Comment: Check Pacemaker/AICD Lead Position, Chest X-ray PA \EANDE\ LAT in Dept ;DO NOT lift affected arm above shoulder. S/P pacemaker/ICD implant. Verify lead placement Result Comment: [facility]'s estimated glomerular filtration rate (eGFR) [...] of individuals. Performed By: #### 0 0071 ####[facility] [place] [address], [facility] Glucose [Mass/Vol] 95 mg/dL Normal 70-100 [facility] Comment on above: Order Comment: Check Pacemaker/AICD Lead Position, Chest X-ray PA \EANDE\ LAT in Dept ;DO NOT lift affected arm above shoulder. S/P pacemaker/ICD implant. Verify lead placement Performed By: #### 0 0071 ####[facility] [place] [address], [facility] Potassium [Moles/Vol] 3.5 mmol/L Normal 3.5-5.1 [facility] Comment on above: Order Comment: Check Pacemaker/AICD Lead Position, Chest X-ray PA \EANDE\ LAT in Dept ;DO NOT lift affected arm above shoulder. S/P pacemaker/ICD implant. Verify lead placement Performed By: #### 0 0071 ####[facility] [place] [address], [facility] Sodium [Moles/Vol] 137 mmol/L Normal 136-145 [facility] Comment on above: Order Comment: Check Pacemaker/AICD Lead Position, Chest X-ray PA \EANDE\ LAT in Dept ;DO NOT lift affected arm above shoulder. S/P pacemaker/ICD implant. Verify lead placement Performed By: #### 0 0071 ####[facility] [place] [address], [facility] Urea nitrogen [Mass/Vol] 37 mg/dL High 7-25 [facility] Comment on above: Order Comment: Check Pacemaker/AICD Lead Position, Chest X-ray PA \EANDE\ LAT in Dept ;DO NOT lift affected arm above shoulder. S/P pacemaker/ICD implant. Verify lead placement Performed By: #### 0 0071 ####[facility] CBC COMPLETE BLOOD COUNTon 0 05-05-2022 Erythrocyte distribution width (RBC) [Ratio] 21.2 % High 11.5-15.0 [facility] Comment on above: Order Comment: Unkno wn Performed By: #### 5 0608 ####[place] [id number] [address] Hematocrit (Bld) [Volume fraction] 35.5 % Low 39.0-50.0 [facility] Comment on above: Order Comment: Unkno wn Performed By: #### 5 0608 ####[facility] Hemoglobin (Bld) [Mass/Vol] 10.5 g/dL Low 13.0-17.0 [facility] Comment on above: Order Comment: Unkno wn Performed By: #### 5 0608 ####[place] [id number] [address] MCH (RBC) [Entitic mass] 23.8 pg Low 27.0-33.0 [facility] Comment on above: Order Comment: Unkno wn Performed By: #### 5 0608 ####[facility] MCHC (RBC) [Mass/Vol] 29.6 g/dL Low 32.0-35.0 [facility] Comment on above: Order Comment: Unkno wn Performed By: #### 5 0608 ####[facility] [place] [address], [facility] MCV (RBC) [Entitic vol] 80.5 fL Low 82.0-98.0 [facility] Comment on above: Order Comment: Unkno wn Performed By: #### 5 0608 ####[facility] Nucleated RBC/100 WBC (Bld) [Ratio] 0 % Normal 0-0 [facility] Comment on above: Order Comment: Unkno wn Performed By: #### 5 0608 ####[facility] [place] [address], [facility] PLAT CNT 161 10*3/uL Normal 150-400 [facility] Comment on above: Order Comment: Unkno wn Performed By: #### 5 0608 ####[facility] RBC (Bld) [#/Vol] 4.41 10*6/uL Normal 4.20-5.70 [facility] Comment on above: Order Comment: Unkno wn Performed By: #### 5 0608 ####[facility] WBC (Bld) [#/Vol] 4.71 10*3/uL Normal 4.00-10.60 [facility] Comment on above: Order Comment: Unkno wn Performed By: #### 5 0608 ####[facility] BASIC METABOLIC PANELon 08-2 -2021 Calcium [Mass/Vol] 8.1 mg/dL Low 8.6-10.3 [facility] Comment on above: Order Comment: No: D o not add to previous draw Performed By: #### 3 2044 #### [facility] [address] [place] [address], [facility] Chloride [Moles/Vol] 97 mmol/L Low 98-107 [facility] Comment on above: Order Comment: No: D o not add to previous draw Performed By: #### 3 2044 #### [facility] [address] [place] [address], [place] CO2 [Moles/Vol] 31 mmol/L Normal 21-31 [facility] Comment on above: Order Comment: No: D o not add to previous draw Performed By: #### 3 2044 #### [facility] [address] [place] [address], [place] Creatinine [Mass/Vol] 1.98 mg/dL High 0.70-1.30 [facility] Comment on above: Order Comment: No: D o not add to previous draw Performed By: #### 3 2044 #### [facility] [address] [place] [address], [facility] EGFR 36 ml/min/1.73sq m Abnormal >60 [facility] Comment on above: Order Comment: No: D o not add to previous draw Result Comment: [facility]'s estimated glomerular filtration rate (eGFR) [...] individuals. Performed By: #### 3 2044 #### [facility] [address] [place] [address], [place] Glucose [Mass/Vol] 88 mg/dL Normal 70-100 [facility] Comment on above: Order Comment: No: D o not add to previous draw Performed By: #### 3 2044 #### [facility] [address] [place] [address], [place] Potassium [Moles/Vol] 3.5 mmol/L Normal 3.5-5.1 [facility] Comment on above: Order Comment: No: D o not add to previous draw Performed By: #### 3 2044 #### [facility] [address] [place] [address], [facility] Sodium [Moles/Vol] 137 mmol/L Normal 136-145 [facility] Comment on above: Order Comment: No: D o not add to previous draw Performed By: #### 3 2044 #### [facility] [address] [place] [address], [facility] Urea nitrogen [Mass/Vol] 35 mg/dL High 7-25 [facility] Comment on above: Order Comment: No: D o not add to previous draw Performed By: #### 3 2044 #### [facility] [address] CBC COMPLETE BLOOD COUNTon 05-04-2022 Erythrocyte distribution width (RBC) [Ratio] 21.2 % High 11.5-15.0 [facility] Comment on above: Order Comment: No: D o not add to previous draw Performed By: #### 5 0608 ####[facility] [facility] [place] [address], [facility] Hematocrit (Bld) [Volume fraction] 34.6 % Low 39.0-50.0 [facility] Comment on above: Order Comment: No: D o not add to previous draw Performed By: #### 5 0608 ####[facility] [facility] [place] [address], [facility] Hemoglobin (Bld) [Mass/Vol] 10.2 g/dL Low 13.0-17.0 [facility] Comment on above: Order Comment: No: D o not add to previous draw Performed By: #### 5 0608 ####[facility] [place] [address], [facility] MCH (RBC) [Entitic mass] 23.8 pg Low 27.0-33.0 [facility] Comment on above: Order Comment: No: D o not add to previous draw Performed By: #### 5 0608 ####[facility] MCHC (RBC) [Mass/Vol] 29.5 g/dL Low 32.0-35.0 [facility] Comment on above: Order Comment: No: D o not add to previous draw Performed By: #### 5 0608 ####[facility] MCV (RBC) [Entitic vol] 80.8 fL Low 82.0-98.0 [facility] Comment on above: Order Comment: No: D o not add to previous draw Performed By: #### 5 0608 ####[place] [id number] [address] Nucleated RBC/100 WBC (Bld) [Ratio] 0 % Normal 0-0 [facility] Comment on above: Order Comment: No: D o not add to previous draw Performed By: #### 5 0608 ####[facility] [facility].[address] PLAT CNT 131 10*3/uL Low 150-400 [facility] Comment on above: Order Comment: No: D o not add to previous draw Performed By: #### 5 0608 ####[facility] [facility].[address] RBC (Bld) [#/Vol] 4.28 10*6/uL Normal 4.20-5.70 [facility] Comment on above: Order Comment: No: D o not add to previous draw Performed By: #### 5 0608 ####[facility] [place] [address].[place] [address], [facility] WBC (Bld) [#/Vol] 4.58 10*3/uL Normal 4.00-10.60 [facility] Comment on above: Order Comment: No: D o not add to previous draw Performed By: #### 5 0608 ####[facility] [place] [address], [facility] Cardiovascular Lab Reporton 05-04-2022 Cardiovascular Lab Report [facility] #: [id number] Department of Physician: Fidel Scott M.D. Division of Service Date: 05/03/2022 Cardiology Birthdate: 1950 Adult Cardiovascular Room #: 5AB [id number] [facility] [address] [place] [address] Cardiovascular Laboratory Report FINAL IMPRESSIONS: 1. Moderately [...] over the hub of the previously placed [place] sheath. A Evangelista catheter was advanced through [place] sheath; pressures were measured in the right atrium, right ventricle, pulmonary artery, and pulmonary capillary wedge positions. Oxygen saturations were obtained and cardiac output/cardiac index was calculated using the modified Eliud principle. The Evangelista catheter was removed. The [place] sheath was to be removed with application [...] Iniguez M.D. Date Trans: 05/04/2022 05:38 A/surekha [id number] cc: Li Cintron M.D. Heart Failure/ Transplant Mailstop [address] [place] [address] Normal [facility] BASIC METABOLIC PANELon - Calcium [Mass/Vol] 7.8 mg/dL Low 8.6-10.3 [facility] Comment on above: Order Comment: Check Pacemaker/AICD Lead Position, Chest X-ray PA \EANDE\ LAT in Dept ;DO NOT lift affected arm above shoulder. S/P pacemaker/ICD implant. Verify lead placement Performed By: #### 4 1000, 88062, 61876 ####[facility] [place] [address], [facility] Chloride [Moles/Vol] 98 mmol/L Normal 98-107 [facility] Comment on above: Order Comment: Check Pacemaker/AICD Lead Position, Chest X-ray PA \EANDE\ LAT in Dept ;DO NOT lift affected arm above shoulder. S/P pacemaker/ICD implant. Verify lead placement Performed By: #### 4 1000, 98199, 89706 ####[facility] [place] [address], [facility] CO2 [Moles/Vol] 31 mmol/L Normal 21-31 [facility] Comment on above: Order Comment: Check Pacemaker/AICD Lead Position, Chest X-ray PA \EANDE\ LAT in Dept ;DO NOT lift affected arm above shoulder. S/P pacemaker/ICD implant. Verify lead placement Performed By: #### 4 999, 71503, 29255 ####[facility] [facility].[address] Creatinine [Mass/Vol] 2.19 mg/dL High 0.70-1.30 [facility] Comment on above: Order Comment: Check Pacemaker/AICD Lead Position, Chest X-ray PA \EANDE\ LAT in Dept ;DO NOT lift affected arm above shoulder. S/P pacemaker/ICD implant. Verify lead placement Performed By: #### 4 999, 25075, 81923 ####[facility] [facility].[address] EGFR 32 ml/min/1.73sq m Abnormal >60 [facility] Comment on above: Order Comment: Check Pacemaker/AICD Lead Position, Chest X-ray PA \EANDE\ LAT in Dept ;DO NOT lift affected arm above shoulder. S/P pacemaker/ICD implant. Verify lead placement Result Comment: [facility]'s estimated glomerular filtration rate (eGFR) [...] of individuals. Performed By: #### 4 999, 86263, 89836 ####[facility] [facility].[address] Glucose [Mass/Vol] 95 mg/dL Normal 70-100 [facility] Comment on above: Order Comment: Check Pacemaker/AICD Lead Position, Chest X-ray PA \EANDE\ LAT in Dept ;DO NOT lift affected arm above shoulder. S/P pacemaker/ICD implant. Verify lead placement Performed By: #### 4 999, 64651, 34790 ####[facility] Potassium [Moles/Vol] 3.3 mmol/L Low 3.5-5.1 [facility] Comment on above: Order Comment: Check Pacemaker/AICD Lead Position, Chest X-ray PA \EANDE\ LAT in Dept ;DO NOT lift affected arm above shoulder. S/P pacemaker/ICD implant. Verify lead placement Performed By: #### 4 1000, 28874, 21616 ####[facility] Sodium [Moles/Vol] 137 mmol/L Normal 136-145 [facility] Comment on above: Order Comment: Check Pacemaker/AICD Lead Position, Chest X-ray PA \EANDE\ LAT in Dept ;DO NOT lift affected arm above shoulder. S/P pacemaker/ICD implant. Verify lead placement Performed By: #### 4 1000, 58154, 72089 ####[facility] Urea nitrogen [Mass/Vol] 39 mg/dL High 7-25 [facility] Comment on above: Order Comment: Check Pacemaker/AICD Lead Position, Chest X-ray PA \EANDE\ LAT in Dept ;DO NOT lift affected arm above shoulder. S/P pacemaker/ICD implant. Verify lead placement Performed By: #### 4 1000, 50711, 15242 ####[facility] CBC W/DIFFon 05-03-2022 ABS IMM GRANS 0.0 10*3/uL Normal 0.0-0.2 [facility] Comment on above: Order Comment: No: D o not add to previous draw Performed By: #### 5 0608 #### [facility] [address] ABS NEUTROPHILS 3.8 10*3/uL Normal 1.6-7.6 [facility] Comment on above: Order Comment: No: D o not add to previous draw Performed By: #### 5 0608 #### [facility] [address] [place] [address], [facility] Basophils (Bld) [#/Vol] 0.0 10*3/uL Normal 0.0-0.2 [facility] Comment on above: Order Comment: No: D o not add to previous draw Performed By: #### 5 0608 #### [facility] [address] [place] [id number], [facility] Basophils/100 WBC (Bld) 0.4 % Normal 0.0-1.0 [facility] Comment on above: Order Comment: No: D o not add to previous draw Performed By: #### 5 0608 #### [facility] [address] [place] [id number], [facility] Eosinophils (Bld) [#/Vol] 0.3 10*3/uL Normal 0.0-0.5 [facility] Comment on above: Order Comment: No: D o not add to previous draw Performed By: #### 5 0608 #### [facility] [address] [facility] [place] [address], [facility] Eosinophils/100 WBC (Bld) 5.9 % Normal 0.0-6.0 [facility] Comment on above: Order Comment: No: D o not add to previous draw Performed By: #### 5 0608 #### [facility] [address] [facility] [address], [facility] Erythrocyte distribution width (RBC) [Ratio] 20.8 % High 11.5-15.0 [facility] Comment on above: Order Comment: No: D o not add to previous draw Performed By: #### 5 0608 #### [facility] [address] [place] [address], [facility] Hematocrit (Bld) [Volume fraction] 31.0 % Low 39.0-50.0 [facility] Comment on above: Order Comment: No: D o not add to previous draw Performed By: #### 5 0608 #### [facility] [address] [facility] [place] [address], [facility] Hemoglobin (Bld) [Mass/Vol] 9.2 g/dL Low 13.0-17.0 [facility] Comment on above: Order Comment: No: D o not add to previous draw Performed By: #### 5 0608 #### [facility] [address] [facility] [address], [facility] IMMATURE GRANS 0.6 % Normal 0.0-1.0 [facility] Comment on above: Order Comment: No: D o not add to previous draw Performed By: #### 5 0608 #### [facility] [address] [place] [address], [facility] Lymphocytes (Bld) [#/Vol] 0.6 10*3/uL Low 1.2-4.0 [facility] [facility] Comment on above: Order Comment: No: D o not add to previous draw Performed By: #### 5 0608 #### [facility] [address] [place] [address], [facility] Lymphocytes/100 WBC (Bld) 11.3 % Low 20.0-45.0 [facility] Comment on above: Order Comment: No: D o not add to previous draw Performed By: #### 5 0608 #### [facility] [address] [place] [address], [facility] MCH (RBC) [Entitic mass] 24.0 pg Low 27.0-33.0 [facility] Comment on above: Order Comment: No: D o not add to previous draw Performed By: #### 5 0608 #### [facility] [address] [place] [address], [facility] MCHC (RBC) [Mass/Vol] 29.7 g/dL Low 32.0-35.0 [facility] Comment on above: Order Comment: No: D o not add to previous draw Performed By: #### 5 0608 #### [facility] [address] [place] [address], [facility] MCV (RBC) [Entitic vol] 80.9 fL Low 82.0-98.0 [facility] Comment on above: Order Comment: No: D o not add to previous draw Performed By: #### 5 0608 #### [facility] [address] [place] [id number], [facility] Monocytes (Bld) [#/Vol] 0.4 10*3/uL Normal 0.1-1.0 [facility] Comment on above: Order Comment: No: D o not add to previous draw Performed By: #### 5 0608 #### [facility] [address] [place] [address], [facility] MONOS 8.2 % Normal 5.0-12.0 [facility] Comment on above: Order Comment: No: D o not add to previous draw Performed By: #### 5 0608 #### [facility] [address] [facility] [place] [address], [facility] Neutrophils/100 WBC (Bld) 73.6 % High 40.0-72.0 [facility] Comment on above: Order Comment: No: D o not add to previous draw Performed By: #### 5 0608 #### [facility] [address] [facility] [place] [address], [facility] Nucleated RBC/100 WBC (Bld) [Ratio] 0 % Normal 0-0 [facility] Comment on above: Order Comment: No: D o not add to previous draw Performed By: #### 5 0608 #### [facility] [address] [place] [id number], [facility] PLAT CNT 131 10*3/uL Low 150-400 [facility] Comment on above: Order Comment: No: D o not add to previous draw Performed By: #### 5 0608 #### [facility] [address] [facility]. [address] RBC (Bld) [#/Vol] 3.83 10*6/uL Low 4.20-5.70 [facility] Comment on above: Order Comment: No: D o not add to previous draw Performed By: #### 5 0608 #### [facility] [address] [facility] [place] [address], [facility] WBC (Bld) [#/Vol] 5.22 10*3/uL Normal 4.00-10.60 [facility] Comment on above: Order Comment: No: D o not add to previous draw Performed By: #### 5 0608 #### [facility] [address] MAGNESIUM BLOODon 05-03-2022 Magnesium [Mass/Vol] 2.0 mg/dL Normal 1.9-2.7 [facility] Comment on above: Order Comment: Check Pacemaker/AICD Lead Position, Chest X-ray PA \EANDE\ LAT in Dept ;DO NOT lift affected arm above shoulder. S/P pacemaker/ICD implant. Verify lead placement Performed By: #### 4 1000, 56557, 82879 ####[facility] PHOSPHORUS BLOODon Phosphate [Mass/Vol] 2.2 mg/dL Low 2.5-5.0 [facility] Comment on above: Order Comment: Check Pacemaker/AICD Lead Position, Chest X-ray PA \EANDE\ LAT in Dept ;DO NOT lift affected arm above shoulder. S/P pacemaker/ICD implant. Verify lead placement Performed By: #### 4 1000, 87751, 40870 ####[facility] BASIC METABOLIC PANELon 04-09 Calcium [Mass/Vol] 7.8 mg/dL Low 8.6-10.3 [facility] Comment on above: Order Comment: No: D o not add to previous draw Performed By: #### 5 0103 #### [facility] [address] [place] [address], [place] Chloride [Moles/Vol] 98 mmol/L Normal 98-107 [facility] Comment on above: Order Comment: No: D o not add to previous draw Performed By: #### 5 0103 #### [facility] [address] [place] [address], [place] CO2 [Moles/Vol] 29 mmol/L Normal 21-31 [facility] Comment on above: Order Comment: No: D o not add to previous draw Performed By: #### 5 0103 #### [facility] [address] [place] [address], [facility] Creatinine [Mass/Vol] 2.26 mg/dL High 0.70-1.30 [facility] Comment on above: Order Comment: No: D o not add to previous draw Performed By: #### 5 0103 #### [facility] [address] [place] [address], [facility] EGFR 30 ml/min/1.73sq m Abnormal >60 [facility] Comment on above: Order Comment: No: D o not add to previous draw Result Comment: [facility]'s estimated glomerular filtration rate (eGFR) [...] individuals. Performed By: #### 5 0103 #### [facility] [address] [place] [address], [place] Glucose [Mass/Vol] 91 mg/dL Normal 70-100 [facility] Comment on above: Order Comment: No: D o not add to previous draw Performed By: #### 5 0103 #### [facility] [address] [place] [address], [facility] Potassium [Moles/Vol] 3.5 mmol/L Normal 3.5-5.1 [facility] Comment on above: Order Comment: No: D o not add to previous draw Performed By: #### 5 0103 #### [facility] [address] [place] [address], [facility] Sodium [Moles/Vol] 135 mmol/L Low 136-145 [facility] Comment on above: Order Comment: No: D o not add to previous draw Performed By: #### 5 0103 #### [facility] [address] [place] [address], [facility] Urea nitrogen [Mass/Vol] 46 mg/dL High 7-25 [facility] Comment on above: Order Comment: No: D o not add to previous draw Performed By: #### 5 0103 #### [facility] [address] [place] [id number], [facility] CBC COMPLETE BLOOD COUNTon 0 05-02-2022 Erythrocyte distribution width (RBC) [Ratio] 20.4 % High 11.5-15.0 [facility] Comment on above: Order Comment: No: D o not add to previous draw Performed By: #### 5 0608 #### [facility] [address] [place] [address], [facility] Hematocrit (Bld) [Volume fraction] 29.9 % Low 39.0-50.0 [facility] Comment on above: Order Comment: No: D o not add to previous draw Performed By: #### 5 0608 #### [facility] [address] [place] [address], [facility] Hemoglobin (Bld) [Mass/Vol] 8.9 g/dL Low 13.0-17.0 [facility] Comment on above: Order Comment: No: D o not add to previous draw Performed By: #### 5 0608 #### [facility] [address] [place] [address], [facility] MCH (RBC) [Entitic mass] 24.1 pg Low 27.0-33.0 [facility] Comment on above: Order Comment: No: D o not add to previous draw Performed By: #### 5 0608 #### [facility] [address] [place] [id number], [facility] MCHC (RBC) [Mass/Vol] 29.8 g/dL Low 32.0-35.0 [facility] Comment on above: Order Comment: No: D o not add to previous draw Performed By: #### 5 0608 #### [facility] [address] [place] [address], [facility] MCV (RBC) [Entitic vol] 80.8 fL Low 82.0-98.0 [facility] Comment on above: Order Comment: No: D o not add to previous draw Performed By: #### 5 0608 #### [facility] [address] [facility] [place] [address], [facility] Nucleated RBC/100 WBC (Bld) [Ratio] 0 % Normal 0-0 [facility] Comment on above: Order Comment: No: D o not add to previous draw Performed By: #### 5 0608 #### [facility] [address] [facility] [place] [id number], [facility] PLAT CNT 130 10*3/uL Low 150-400 [facility] Comment on above: Order Comment: No: D o not add to previous draw Performed By: #### 5 0608 #### [facility] [address] [facility] [place] [address], [facility] RBC (Bld) [#/Vol] 3.70 10*6/uL Low 4.20-5.70 [facility] Comment on above: Order Comment: No: D o not add to previous draw Performed By: #### 5 0608 #### [facility] [address] [place] [address], [facility] WBC (Bld) [#/Vol] 4.68 10*3/uL Normal 4.00-10.60 [facility] Comment on above: Order Comment: No: D o not add to previous draw Performed By: #### 5 0608 #### [facility] [address] [place] [address], [facility] MAGNESIUM BLOODon 05-02-2022 Magnesium [Mass/Vol] 2.0 mg/dL Normal 1.9-2.7 [facility] Comment on above: Order Comment: No: D o not add to previous draw Performed By: #### 5 0103 #### [facility] [address] [place] [address], [facility] PHOSPHORUS BLOODon Phosphate [Mass/Vol] 2.5 mg/dL Normal 2.5-5.0 [facility] Comment on above: Order Comment: No: D o not add to previous draw Performed By: #### 5 0103 #### [facility] [address] BASIC METABOLIC PANELon 04-09 Calcium [Mass/Vol] 8.0 mg/dL Low 8.6-10.3 [facility] Comment on above: Order Comment: Check Pacemaker/AICD Lead Position, Chest X-ray PA \EANDE\ LAT in Dept ;DO NOT lift affected arm above shoulder. S/P pacemaker/ICD implant. Verify lead placement Performed By: #### 4 1000, 20772, 30903 ####[facility] Chloride [Moles/Vol] 99 mmol/L Normal 98-107 [facility] Comment on above: Order Comment: Check Pacemaker/AICD Lead Position, Chest X-ray PA \EANDE\ LAT in Dept ;DO NOT lift affected arm above shoulder. S/P pacemaker/ICD implant. Verify lead placement Performed By: #### 4 1000, 26260, 01590 ####[facility] CO2 [Moles/Vol] 31 mmol/L Normal 21-31 [facility] Comment on above: Order Comment: Check Pacemaker/AICD Lead Position, Chest X-ray PA \EANDE\ LAT in Dept ;DO NOT lift affected arm above shoulder. S/P pacemaker/ICD implant. Verify lead placement Performed By: #### 4 999, 02892, 31003 ####[facility] Creatinine [Mass/Vol] 2.48 mg/dL High 0.70-1.30 [facility] Comment on above: Order Comment: Check Pacemaker/AICD Lead Position, Chest X-ray PA \EANDE\ LAT in Dept ;DO NOT lift affected arm above shoulder. S/P pacemaker/ICD implant. Verify lead placement Performed By: #### 4 999, 64635, 89639 ####[facility] [facility].[address] EGFR 27 ml/min/1.73sq m Abnormal >60 [facility] Comment on above: Order Comment: Check Pacemaker/AICD Lead Position, Chest X-ray PA \EANDE\ LAT in Dept ;DO NOT lift affected arm above shoulder. S/P pacemaker/ICD implant. Verify lead placement Result Comment: [facility]'s estimated glomerular filtration rate (eGFR) [...] of individuals. Performed By: #### 4 999, 24105, 56769 ####[facility] Glucose [Mass/Vol] 83 mg/dL Normal 70-100 [facility] Comment on above: Order Comment: Check Pacemaker/AICD Lead Position, Chest X-ray PA \EANDE\ LAT in Dept ;DO NOT lift affected arm above shoulder. S/P pacemaker/ICD implant. Verify lead placement Performed By: #### 4 1000, 53970, 18569 ####[facility] Potassium [Moles/Vol] 3.5 mmol/L Normal 3.5-5.1 [facility] Comment on above: Order Comment: Check Pacemaker/AICD Lead Position, Chest X-ray PA \EANDE\ LAT in Dept ;DO NOT lift affected arm above shoulder. S/P pacemaker/ICD implant. Verify lead placement Performed By: #### 4 1000, 18581, 15269 ####[facility] [facility].[address] Sodium [Moles/Vol] 137 mmol/L Normal 136-145 [facility] Comment on above: Order Comment: Check Pacemaker/AICD Lead Position, Chest X-ray PA \EANDE\ LAT in Dept ;DO NOT lift affected arm above shoulder. S/P pacemaker/ICD implant. Verify lead placement Performed By: #### 4 1000, 70205, 93945 ####[facility] [facility].[address] Urea nitrogen [Mass/Vol] 49 mg/dL High 7-25 [facility] Comment on above: Order Comment: Check Pacemaker/AICD Lead Position, Chest X-ray PA \EANDE\ LAT in Dept ;DO NOT lift affected arm above shoulder. S/P pacemaker/ICD implant. Verify lead placement Performed By: #### 4 1000, 76396, 49395 ####[facility] CBC COMPLETE BLOOD COUNTon 0 - Erythrocyte distribution width (RBC) [Ratio] 20.6 % High 11.5-15.0 [facility] Comment on above: Order Comment: No: D o not add to previous draw Performed By: #### 5 0608 #### [facility] [address] [place] [address], [facility] Hematocrit (Bld) [Volume fraction] 28.9 % Low 39.0-50.0 [facility] Comment on above: Order Comment: No: D o not add to previous draw Performed By: #### 5 0608 #### [facility] [address] [place] [address], [facility] Hemoglobin (Bld) [Mass/Vol] 8.6 g/dL Low 13.0-17.0 [facility] Comment on above: Order Comment: No: D o not add to previous draw Performed By: #### 5 0608 #### [facility] [address] [facility] [address], [facility] MCH (RBC) [Entitic mass] 24.1 pg Low 27.0-33.0 [facility] Comment on above: Order Comment: No: D o not add to previous draw Performed By: #### 5 0608 #### [facility] [address] [facility] [place] [address], [facility] MCHC (RBC) [Mass/Vol] 29.8 g/dL Low 32.0-35.0 [facility] Comment on above: Order Comment: No: D o not add to previous draw Performed By: #### 5 0608 #### [facility] [address] [place] [address], [facility] MCV (RBC) [Entitic vol] 81.0 fL Low 82.0-98.0 [facility] Comment on above: Order Comment: No: D o not add to previous draw Performed By: #### 5 0608 #### [facility] [address] [place] [address], [facility] Nucleated RBC/100 WBC (Bld) [Ratio] 0 % Normal 0-0 [facility] Comment on above: Order Comment: No: D o not add to previous draw Performed By: #### 5 0608 #### [facility] [address] [place] [address], [facility] PLAT CNT 130 10*3/uL Low 150-400 [facility] Comment on above: Order Comment: No: D o not add to previous draw Performed By: #### 5 0608 #### [facility] [address] [place] [id number], [facility] RBC (Bld) [#/Vol] 3.57 10*6/uL Low 4.20-5.70 [facility] Comment on above: Order Comment: No: D o not add to previous draw Performed By: #### 5 0608 #### [facility] [address] [place] [address], [facility] WBC (Bld) [#/Vol] 4.33 10*3/uL Normal 4.00-10.60 [facility] Comment on above: Order Comment: No: D o not add to previous draw Performed By: #### 5 0608 #### [facility] [address] [place] [id number], [facility] COOXIMETRYon 05-01-2022 COHB 2 % Normal [facility] Comment on above: Performed By: #### 7 0207 #### [facility] [address] [place] [address], [facility] METHB 1 % Normal [facility] Comment on above: Performed By: #### 7 0207 #### [facility] [address] [place] [id number], [facility] Oxygen saturation in Blood 71.0 % Normal 65.0-75.0 [facility] Comment on above: Performed By: #### 7 0207 #### [facility] [address] [place] [id number], [facility] THB 9.0 g/dL Normal [facility] Comment on above: Performed By: #### 7 0207 #### [facility] [address] [place] [address], [facility] MAGNESIUM BLOODon 05-01-2022 Magnesium [Mass/Vol] 2.1 mg/dL Normal 1.9-2.7 [facility] Comment on above: Order Comment: Check Pacemaker/AICD Lead Position, Chest X-ray PA \EANDE\ LAT in Dept ;DO NOT lift affected arm above shoulder. S/P pacemaker/ICD implant. Verify lead placement Performed By: #### 4 1000, 10604, 08873 ####[facility] [place] [address], [facility] PHOSPHORUS BLOODon Phosphate [Mass/Vol] 3.6 mg/dL Normal 2.5-5.0 [facility] Comment on above: Order Comment: Check Pacemaker/AICD Lead Position, Chest X-ray PA \EANDE\ LAT in Dept ;DO NOT lift affected arm above shoulder. S/P pacemaker/ICD implant. Verify lead placement Performed By: #### 4 1000, 22032, 48397 ####[facility] PORTABLE CHEST 1 VIEWon 04-09 PORTABLE CHEST 1 VIEW [facility] Department of Radiology [address] [place] [id number] Patient Name: MAN PATEL : 1950 Sex: M Age: Race: White Pt. Location: [place] [address] Patient Status: I Ordered Date: 05/01/2022 10:35:00 [...] obtained. COMPARISON: Chest radiograph dated 08/01/2021 FINDINGS: [place] catheter placed via right internal jugular approach has tip in the right pulmonary artery. Dual-chamber pacemaker placed left subclavian approach. Moderate cardiomegaly. Moderate CHF. No pleural effusion. No pneumothorax. IMPRESSION: Moderate cardiomegaly. Moderate CHF. Electronically signed: Aldo [place]. Transcribed by: [email or web address], User Resident: Electronically Signed by: ALDO MONTANA @ 05/01/2022 11:16 AM Normal [facility] Comment on above: Order Comment: Check Line Position *BLOOD CULTUREon 04-30-2022 *BLOOD CULTURE Clinical Report: (D) Specimen: BLOOD CULTURE Collected: 04/29/2022 23:47 Status: Final Last Updated: 05/05/2022 06:59 CULT RES (Final) No Growth Day 5 Normal [facility] Comment on above: Performed By: #### 3 0313 ####[facility] *BLOOD CULTURE Clinical Report: (D) Specimen: BLOOD CULTURE Collected: 04/29/2022 23:43 Status: Final Last Updated: 05/05/2022 06:59 CULT RES (Final) No Growth Day 5 Normal [facility] Comment on above: Performed By: #### 3 0313 #### [facility] [address] [facility] [address] BASIC METABOLIC PANELon 08-2 Calcium [Mass/Vol] 8.0 mg/dL Low 8.6-10.3 [facility] Comment on above: Order Comment: No: D o not add to previous draw Performed By: #### 4 5506, 11949, 36082, 24941 ####[facility] [place] [address], [facility] Chloride [Moles/Vol] 100 mmol/L Normal 98-107 [facility] Comment on above: Order Comment: No: D o not add to previous draw Performed By: #### 4 5506, 30690, 90925, 21218 ####[facility] [place] [address], [facility] CO2 [Moles/Vol] 31 mmol/L Normal 21-31 [facility] Comment on above: Order Comment: No: D o not add to previous draw Performed By: #### 4 5506, 16621, 37135, 97212 ####[facility] [facility].[address] Creatinine [Mass/Vol] 2.53 mg/dL High 0.70-1.30 [facility] Comment on above: Order Comment: No: D o not add to previous draw Performed By: #### 4 5506, 02812, 41897, 45933 ####[facility] [facility].[address] EGFR 27 ml/min/1.73sq m Abnormal >60 [facility] Comment on above: Order Comment: No: D o not add to previous draw Result Comment: [facility]'s estimated glomerular filtration rate (eGFR) [...] of individuals. Performed By: #### 4 5506, 13928, 06176, 34234 ####[facility] [place] [address], [facility] Glucose [Mass/Vol] 94 mg/dL Normal 70-100 [facility] Comment on above: Order Comment: No: D o not add to previous draw Performed By: #### 4 5506, 90698, 91620, 12058 ####[facility] [place] [address], [facility] Potassium [Moles/Vol] 3.5 mmol/L Normal 3.5-5.1 [facility] Comment on above: Order Comment: No: D o not add to previous draw Performed By: #### 4 5506, 65538, 38523, 29392 ####[facility] [place] [address], [facility] Sodium [Moles/Vol] 139 mmol/L Normal 136-145 [facility] Comment on above: Order Comment: No: D o not add to previous draw Performed By: #### 4 5506, 29968, 13559, 29552 ####[facility] [place] [address], [facility] Urea nitrogen [Mass/Vol] 49 mg/dL High 7-25 [facility] Comment on above: Order Comment: No: D o not add to previous draw Performed By: #### 4 5506, 62661, 43705, 54440 ####[facility] [place] [address], [place] CBC COMPLETE BLOOD COUNTon 0 8- Erythrocyte distribution width (RBC) [Ratio] 20.8 % High 11.5-15.0 [facility] Comment on above: Order Comment: No: D o not add to previous draw Performed By: #### 5 0608 #### [facility] [address] [place] [address], [facility] Hematocrit (Bld) [Volume fraction] 28.3 % Low 39.0-50.0 [facility] Comment on above: Order Comment: No: D o not add to previous draw Performed By: #### 5 0608 #### [facility] [address] [facility] [place] [address], [facility] Hemoglobin (Bld) [Mass/Vol] 8.5 g/dL Low 13.0-17.0 [facility] Comment on above: Order Comment: No: D o not add to previous draw Performed By: #### 5 0608 #### [facility] [address] [facility] [place] [address], [facility] MCH (RBC) [Entitic mass] 24.3 pg Low 27.0-33.0 [facility] Comment on above: Order Comment: No: D o not add to previous draw Performed By: #### 5 0608 #### [facility] [address] [place] [address], [facility] MCHC (RBC) [Mass/Vol] 30.0 g/dL Low 32.0-35.0 [facility] Comment on above: Order Comment: No: D o not add to previous draw Performed By: #### 5 0608 #### [facility] [address] [facility] [place] [address], [facility] MCV (RBC) [Entitic vol] 80.9 fL Low 82.0-98.0 [facility] Comment on above: Order Comment: No: D o not add to previous draw Performed By: #### 5 0608 #### [facility] [address] [place] [address], [facility] Nucleated RBC/100 WBC (Bld) [Ratio] 0 % Normal 0-0 [facility] Comment on above: Order Comment: No: D o not add to previous draw Performed By: #### 5 0608 #### [facility] [address] [place] [address], [place] PLAT CNT 139 10*3/uL Low 150-400 [facility] Comment on above: Order Comment: No: D o not add to previous draw Performed By: #### 5 0608 #### [facility] [address] [place] [address], [place] RBC (Bld) [#/Vol] 3.50 10*6/uL Low 4.20-5.70 [facility] Comment on above: Order Comment: No: D o not add to previous draw Performed By: #### 5 0608 #### [facility] [address] [place] [address], [facility] WBC (Bld) [#/Vol] 4.28 10*3/uL Normal 4.00-10.60 [facility] Comment on above: Order Comment: No: D o not add to previous draw Performed By: #### 5 0608 #### [facility] [address] [place] [address], [facility] COOXIMETRYon 04-30-2022 COHB 2 % Normal [facility] Comment on above: Performed By: #### 3 0313 #### [facility] [address] [place] [address], [facility] METHB 1 % Normal [facility] Comment on above: Performed By: #### 3 3 #### [facility] [address] [place] [address], [place] Oxygen saturation in Blood 69.0 % Normal 65.0-75.0 [facility] Comment on above: Performed By: #### 3 3 #### [facility] [address] [place] [address], [place] THB 12.0 g/dL Normal [facility] Comment on above: Performed By: #### 3 3 #### [facility] [address] [place] [address], [facility] Cardiovascular Lab Reporton 04-30-2022 Cardiovascular Lab Report [facility] Patient Name: [facility] Donovan Ace MR #: [id number] Department of Physician: Fidel Flowers M.D. Division of Service Date: 04/29/2022 Cardiology Birthdate: 1950 Adult Cardiovascular Room #: KASANDRA [id number] [place] [address] Cardiovascular Laboratory Report CLINICAL PRESENTATION: The patient is a 72-year-old male with past medical history significant for CAD, status post CABG, heart failure with EF 40%, CKD with acute kidney injury, atrial fibrillation on Eliquis, pacemaker, and hypertension. The patient was admitted with shortness of breath and lower extremity edema concerning for [id number] systolic heart failure. He has worsening renal [...] Given worsening renal function, we will place [place]-Eleazar catheter for invasive hemodynamic monitoring in the ICU. The patient will likely require milrinone inotrope therapy. 2. Remainder of plan per Cardiology Service. 3. There was tracing of severe V-waves, which could be seen in mitral regurgitation. Correlation with echocardiogram is recommended. PROCEDURES: Right heart catheterization, ultrasound guidance for vascular access. INDICATION: [id number] systolic heart failure. PROCEDURE DESCRIPTION: The patient [...] ultrasound guidance and micropuncture access technique, a 6-[place] sheath was placed in the right internal [...] renal function, we agreed to place a [place]-Eleazar catheter for monitoring in the ICU. Next, using a wire, I exchanged the sheath to an 8-[place]ic Cordis sheath. This was sutured to the skin. Next, I advanced [employer] [place] catheter to the pulmonary artery position. The [...] Red M.D. Date Trans: 04/30/2022 10:29 A/surekha [id number] cc: Li Cintron M.D. Heart Failure/ Transplant Mailstop [id number] [facility] [address] Normal [facility] MAGNESIUM BLOODon 04-30-2022 Magnesium [Mass/Vol] 2.3 mg/dL Normal 1.9-2.7 [facility] Comment on above: Order Comment: No: D o not add to previous draw Performed By: #### 4 5506, 44859, 85348, 16564 ####[facility] [place] [address], [place] PHOSPHORUS BLOODon Phosphate [Mass/Vol] 4.1 mg/dL Normal 2.5-5.0 [facility] Comment on above: Performed By: #### 4 5506, 25528, 66095, 63717 ####[facility] [place] [address], [place] URIC ACID BLOODon 04-30-2022 Urate [Mass/Vol] 13.5 mg/dL High 4.4-7.6 [facility] Comment on above: Performed By: #### 4 5506, 14339, 15505, 87877 ####[facility] [place] [address], [facility] BASIC METABOLIC PANELon 04-09 Calcium [Mass/Vol] 8.4 mg/dL Low 8.6-10.3 [facility] Comment on above: Order Comment: No: D o not add to previous draw Performed By: #### 3 0313 #### [facility] [address] [place] [address], [place] Chloride [Moles/Vol] 100 mmol/L Normal 98-107 [facility] Comment on above: Order Comment: No: D o not add to previous draw Performed By: #### 3 8643 #### [facility] [address] [place] [address], [place] CO2 [Moles/Vol] 30 mmol/L Normal 21-31 [facility] Comment on above: Order Comment: No: D o not add to previous draw Performed By: #### 3 0313 #### [facility] [address] [place] [address], [place] Creatinine [Mass/Vol] 2.09 mg/dL High 0.70-1.30 [facility] Comment on above: Order Comment: No: D o not add to previous draw Performed By: #### 3 0313 #### [facility] [address] [place] [address], [place] EGFR 33 ml/min/1.73sq m Abnormal >60 [facility] Comment on above: Order Comment: No: D o not add to previous draw Result Comment: [facility]'s estimated glomerular filtration rate (eGFR) [...] individuals. Performed By: #### 3 0313 #### [facility] [address] [place] [id number], [facility] Glucose [Mass/Vol] 96 mg/dL Normal 70-100 [facility] Comment on above: Order Comment: No: D o not add to previous draw Performed By: #### 3 0313 #### [facility] [address] [place] [address], [facility] Potassium [Moles/Vol] 4.0 mmol/L Normal 3.5-5.1 [facility] Comment on above: Order Comment: No: D o not add to previous draw Performed By: #### 3 0313 #### [facility] [address] [place] [address], [facility] Sodium [Moles/Vol] 138 mmol/L Normal 136-145 [facility] Comment on above: Order Comment: No: D o not add to previous draw Performed By: #### 3 0313 #### [facility] [address] [place] [address], [facility] Urea nitrogen [Mass/Vol] 48 mg/dL High 7-25 [facility] Comment on above: Order Comment: No: D o not add to previous draw Performed By: #### 3 0313 #### [facility] [address] CBC COMPLETE BLOOD COUNTon 0 - Erythrocyte distribution width (RBC) [Ratio] 20.6 % High 11.5-15.0 [facility] Comment on above: Order Comment: No: D o not add to previous draw Performed By: #### 5 0608 ####[facility] Hematocrit (Bld) [Volume fraction] 31.0 % Low 39.0-50.0 [facility] Comment on above: Order Comment: No: D o not add to previous draw Performed By: #### 5 0608 ####[facility] Hemoglobin (Bld) [Mass/Vol] 8.9 g/dL Low 13.0-17.0 [facility] Comment on above: Order Comment: No: D o not add to previous draw Performed By: #### 5 0608 ####[facility] MCH (RBC) [Entitic mass] 23.1 pg Low 27.0-33.0 [facility] Comment on above: Order Comment: No: D o not add to previous draw Performed By: #### 5 0608 ####[facility] MCHC (RBC) [Mass/Vol] 28.7 g/dL Low 32.0-35.0 [facility] Comment on above: Order Comment: No: D o not add to previous draw Performed By: #### 5 0608 ####[facility] MCV (RBC) [Entitic vol] 80.5 fL Low 82.0-98.0 [facility] Comment on above: Order Comment: No: D o not add to previous draw Performed By: #### 5 0608 ####[facility] [place] [address], [facility] Nucleated RBC/100 WBC (Bld) [Ratio] 0 % Normal 0-0 [facility] Comment on above: Order Comment: No: D o not add to previous draw Performed By: #### 5 0608 ####[facility] [place] [address], [place] PLAT CNT 145 10*3/uL Low 150-400 [facility] Comment on above: Order Comment: No: D o not add to previous draw Performed By: #### 5 0608 ####[facility] [place] [address], [facility] RBC (Bld) [#/Vol] 3.85 10*6/uL Low 4.20-5.70 [facility] Comment on above: Order Comment: No: D o not add to previous draw Performed By: #### 5 0608 ####[facility] [place] [address], [facility] WBC (Bld) [#/Vol] 5.00 10*3/uL Normal 4.00-10.60 [facility] Comment on above: Order Comment: No: D o not add to previous draw Performed By: #### 5 0608 ####[facility] [place] [address], [facility] COOXIMETRYon 04-29-2022 COHB 3 % Normal [facility] Comment on above: Performed By: #### 5 0103 #### [facility] [address] [place] [address], [place] METHB 1 % Normal [facility] Comment on above: Performed By: #### 5 0103 #### [facility] [address] [place] [address], [place] Oxygen saturation in Blood 74.0 % Normal 65.0-75.0 [facility] Comment on above: Performed By: #### 5 0103 #### [facility] [address] [place] [address], [facility] THB 8.4 g/dL Normal [facility] Comment on above: Performed By: #### 5 0103 #### [facility] [address] [place] [address], [facility] MAGNESIUM BLOODon 04-29-2022 Magnesium [Mass/Vol] 2.3 mg/dL Normal 1.9-2.7 [facility] Comment on above: Order Comment: No: D o not add to previous draw Performed By: #### 3 0313 #### [facility] [address] [place] [address], [facility] BASIC METABOLIC PANELon 04-09 Calcium [Mass/Vol] 8.3 mg/dL Low 8.6-10.3 [facility] Comment on above: Order Comment: No: D o not add to previous draw Performed By: #### 0 0071, 56617, 12166 ####[facility] [place] [address], [facility] Chloride [Moles/Vol] 100 mmol/L Normal 98-107 [facility] Comment on above: Order Comment: No: D o not add to previous draw Performed By: #### 0 0071, 97314, 37528 ####[facility] [place] [address], [place] CO2 [Moles/Vol] 29 mmol/L Normal 21-31 [facility] Comment on above: Order Comment: No: D o not add to previous draw Performed By: #### 0 0071, 97505, 15147 ####[facility] [place] [address], [place] Creatinine [Mass/Vol] 2.51 mg/dL High 0.70-1.30 [facility] Comment on above: Order Comment: No: D o not add to previous draw Performed By: #### 0 0071, , 03475 ####[facility] [facility] [place] [address], [facility] EGFR 27 ml/min/1.73sq m Abnormal >60 [facility] Comment on above: Order Comment: No: D o not add to previous draw Result Comment: [facility]'s estimated glomerular filtration rate (eGFR) [...] group of individuals. Performed By: #### 0 007, , 08005 ####[facility] [place] [address], [facility] Glucose [Mass/Vol] 98 mg/dL Normal 70-100 [facility] Comment on above: Order Comment: No: D o not add to previous draw Performed By: #### 0 007, , 03868 ####[facility] [place] [address], [facility] Potassium [Moles/Vol] 3.9 mmol/L Normal 3.5-5.1 [facility] Comment on above: Order Comment: No: D o not add to previous draw Performed By: #### 0 0071, 06051, 11187 ####[facility] [facility] [place] [address], [facility] Sodium [Moles/Vol] 138 mmol/L Normal 136-145 [facility] Comment on above: Order Comment: No: D o not add to previous draw Performed By: #### 0 007, 21077, 42184 ####[facility] [place] [address], [facility] Urea nitrogen [Mass/Vol] 55 mg/dL High 7-25 [facility] Comment on above: Order Comment: No: D o not add to previous draw Performed By: #### 0 0071, 44779, 96468 ####[facility] CBC COMPLETE BLOOD COUNTon 0 - Erythrocyte distribution width (RBC) [Ratio] 20.2 % High 11.5-15.0 [facility] Comment on above: Order Comment: No: D o not add to previous draw Performed By: #### 5 0608 ####[address] Hematocrit (Bld) [Volume fraction] 28.9 % Low 39.0-50.0 [facility] Comment on above: Order Comment: No: D o not add to previous draw Performed By: #### 5 0608 ####[place] [id number] [address] Hemoglobin (Bld) [Mass/Vol] 8.7 g/dL Low 13.0-17.0 [facility] Comment on above: Order Comment: No: D o not add to previous draw Performed By: #### 5 0608 ####[place] [id number] [address] MCH (RBC) [Entitic mass] 24.0 pg Low 27.0-33.0 [facility] Comment on above: Order Comment: No: D o not add to previous draw Performed By: #### 5 0608 ####[facility] [place] [address].[address] MCHC (RBC) [Mass/Vol] 30.1 g/dL Low 32.0-35.0 [facility] Comment on above: Order Comment: No: D o not add to previous draw Performed By: #### 5 0608 ####[facility] MCV (RBC) [Entitic vol] 79.6 fL Low 82.0-98.0 [facility] Comment on above: Order Comment: No: D o not add to previous draw Performed By: #### 5 0608 ####[address] Nucleated RBC/100 WBC (Bld) [Ratio] 0 % Normal 0-0 [facility] Comment on above: Order Comment: No: D o not add to previous draw Performed By: #### 5 0608 ####[address] PLAT CNT 162 10*3/uL Normal 150-400 [facility] Comment on above: Order Comment: No: D o not add to previous draw Performed By: #### 5 0608 ####[address] RBC (Bld) [#/Vol] 3.63 10*6/uL Low 4.20-5.70 [facility] Comment on above: Order Comment: No: D o not add to previous draw Performed By: #### 5 0608 ####[place] [address], [facility] WBC (Bld) [#/Vol] 6.21 10*3/uL Normal 4.00-10.60 [facility] Comment on above: Order Comment: No: D o not add to previous draw Performed By: #### 5 0608 ####[address] LIPID PROFILEon 04-28-2022 Cholesterol [Mass/Vol] 92 mg/dL Low 120-200 Th e [facility] Comment on above: Order Comment: Yes: Add to Previous draw if able Result Comment: CHOL ESTEROL REFERENCE RANGE: 20 YEARS AND OLDER CARDIOVASCULAR RISK Less than 200 mg/dl Low Risk 200 to 239 mg/dl Borderline Risk 240 mg/dl and greater High Risk Performed By: #### 0 0071, 33853, 72116 ####[facility] [place] [address], [facility] Cholesterol in HDL [Mass/Vol] 37 mg/dL Normal 23-92 [facility] Comment on above: Order Comment: Yes: Add to Previous draw if able Result Comment: Slig ht variation in normal range could be due to gender and/or age. HDL CHOLESTEROL REFERENCE RANGE: 20 years and older Cardiovascular Risk > or =60 mg/dL Desirable 40 TO 59 mg/dL Low Risk <40 mg/dL High Risk Performed By: #### 0 0071, , 67446 ####[facility] [facility] [place] [address], [facility] Cholesterol in LDL [Mass/Vol] 47 mg/dL Normal 0-130 [facility] Comment on above: Order Comment: Yes: Add to Previous draw if able Result Comment: LDL IS A CALCULATION LDL IS ONLY VALID IF THE TRIG IS LESS THAN 400. Performed By: #### 0 007, , 78965 ####[facility] [facility] [place] [address], [facility] Cholesterol.total/Chol esterol in HDL [Mass ratio] 2.5 {ratio} Normal .0-4.5 [facility] Comment on above: Order Comment: Yes: Add to Previous draw if able Performed By: #### 0 0071, , 18075 ####[facility] [place] [address], [place] NON-HDL CHOLESTEROL 55 mg/dL Normal [facility] Comment on above: Order Comment: Yes: Add to Previous draw if able Performed By: #### 0 0071, 59547, 84620 ####[facility] [place] [address], [place] Triglyceride [Mass/Vol] 40 mg/dL Normal 40-149 [facility] Comment on above: Order Comment: Yes: Add to Previous draw if able Result Comment: TRIG LYCERIDE REFERENCE RANGE: 20 YEARS AND OLDER CARDIOVASCULAR RISK LESS THAN 150 mg/dl LOW RISK 150 TO 199 mg/dl BORDERLINE RISK 200 mg/dl AND GREATER HIGH RISK Performed By: #### 0 0071, 25190, 51662 ####[facility] [place] [address], [facility] VLDL CHOL 8 mg/dL Normal 0-40 [facility] Comment on above: Order Comment: Yes: Add to Previous draw if able Performed By: #### 0 0071, 97215, 06449 ####[facility] [place] [address], [facility] MAGNESIUM BLOODon 04-28-2022 Magnesium [Mass/Vol] 2.4 mg/dL Normal 1.9-2.7 [facility] Comment on above: Order Comment: No: D o not add to previous draw Performed By: #### 0 0071, 36386, 11301 ####[facility] [place] [address], [facility] BASIC METABOLIC PANELon 04-09 Calcium [Mass/Vol] 8.4 mg/dL Low 8.6-10.3 [facility] Comment on above: Order Comment: No: D o not add to previous draw Performed By: #### 7 0207 #### [facility] [address] [place] [address], [place] Chloride [Moles/Vol] 100 mmol/L Normal 98-107 [facility] Comment on above: Order Comment: No: D o not add to previous draw Performed By: #### 7 7 #### [facility] [address] [place] [address], [place] CO2 [Moles/Vol] 27 mmol/L Normal 21-31 [facility] Comment on above: Order Comment: No: D o not add to previous draw Performed By: #### 7 7 #### [facility] [address] [place] [address], [facility] Creatinine [Mass/Vol] 2.46 mg/dL High 0.70-1.30 [facility] Comment on above: Order Comment: No: D o not add to previous draw Performed By: #### 7 0207 #### [facility] [address] [place] [address], [facility] EGFR 27 ml/min/1.73sq m Abnormal >60 [facility] Comment on above: Order Comment: No: D o not add to previous draw Result Comment: [facility]'s estimated glomerular filtration rate (eGFR) [...] individuals. Performed By: #### 7 0207 #### [facility] [address] [place] [address], [facility] Glucose [Mass/Vol] 96 mg/dL Normal 70-100 [facility] Comment on above: Order Comment: No: D o not add to previous draw Performed By: #### 7 0207 #### [facility] [address] [place] [address], [facility] Potassium [Moles/Vol] 3.8 mmol/L Normal 3.5-5.1 [facility] Comment on above: Order Comment: No: D o not add to previous draw Performed By: #### 7 0207 #### [facility] [address] [facility] [place] [id number], [facility] Sodium [Moles/Vol] 136 mmol/L Normal 136-145 [facility] Comment on above: Order Comment: No: D o not add to previous draw Performed By: #### 7 0207 #### [facility] [address] [place] [address], [place] Urea nitrogen [Mass/Vol] 57 mg/dL High 7-25 [facility] Comment on above: Order Comment: No: D o not add to previous draw Performed By: #### 7 0207 #### [facility] [address] [place] [address], [place] BASIC METABOLIC PANELon 04-08 Calcium [Mass/Vol] 8.7 mg/dL Normal 8.6-10.3 [facility] Comment on above: Order Comment: No: D o not add to previous draw Performed By: #### 3 0313 #### [facility] [address] [place] [address], [place] Chloride [Moles/Vol] 100 mmol/L Normal 98-107 [facility] Comment on above: Order Comment: No: D o not add to previous draw Performed By: #### 3 0313 #### [facility] [address] [place] [address], [place] CO2 [Moles/Vol] 26 mmol/L Normal 21-31 [facility] Comment on above: Order Comment: No: D o not add to previous draw Performed By: #### 3 0313 #### [facility] [address] [place] [address], [place] Creatinine [Mass/Vol] 2.63 mg/dL High 0.70-1.30 [facility] Comment on above: Order Comment: No: D o not add to previous draw Performed By: #### 3 0313 #### [facility] [address] [place] [address], [place] EGFR 25 ml/min/1.73sq m Abnormal >60 [facility] Comment on above: Order Comment: No: D o not add to previous draw Result Comment: [facility]'s estimated glomerular filtration rate (eGFR) [...] individuals. Performed By: #### 3 0313 #### [facility] [address] [place] [address], [facility] Glucose [Mass/Vol] 101 mg/dL High 70-100 [facility] Comment on above: Order Comment: No: D o not add to previous draw Performed By: #### 3 0313 #### [facility] [address] [facility] [place] [address], [facility] Potassium [Moles/Vol] 4.3 mmol/L Normal 3.5-5.1 [facility] Comment on above: Order Comment: No: D o not add to previous draw Performed By: #### 3 0313 #### [facility] [address] [facility] [place] [id number], [facility] Sodium [Moles/Vol] 136 mmol/L Normal 136-145 [facility] Comment on above: Order Comment: No: D o not add to previous draw Performed By: #### 3 0313 #### [facility] [address] [place] [address], [facility] Urea nitrogen [Mass/Vol] 57 mg/dL High 7-25 [facility] Comment on above: Order Comment: No: D o not add to previous draw Performed By: #### 3 0313 #### [facility] [address] [place] [address], [facility] CBC W/DIFFon 04-26-2022 ABS IMM GRANS 0.0 10*3/uL Normal 0.0-0.2 [facility] Comment on above: Order Comment: No: D o not add to previous draw Performed By: #### 5 0103 #### [facility] [address] [place] [address], [facility] ABS NEUTROPHILS 5.2 10*3/uL Normal 1.6-7.6 [facility] Comment on above: Order Comment: No: D o not add to previous draw Performed By: #### 5 0103 #### [facility] [address] [place] [address], [facility] Basophils (Bld) [#/Vol] 0.0 10*3/uL Normal 0.0-0.2 [facility] Comment on above: Order Comment: No: D o not add to previous draw Performed By: #### 5 0103 #### [facility] [facility] [address] [place] [address], [facility] Basophils/100 WBC (Bld) 0.6 % Normal 0.0-1.0 [facility] Comment on above: Order Comment: No: D o not add to previous draw Performed By: #### 5 0103 #### [facility] [address] [place] [address], [facility] Eosinophils (Bld) [#/Vol] 0.2 10*3/uL Normal 0.0-0.5 [facility] Comment on above: Order Comment: No: D o not add to previous draw Performed By: #### 5 0103 #### [facility] [address] [place] [id number], [facility] Eosinophils/100 WBC (Bld) 3.4 % Normal 0.0-6.0 [facility] Comment on above: Order Comment: No: D o not add to previous draw Performed By: #### 5 0103 #### [facility] [address] [place] [address], [facility] Erythrocyte distribution width (RBC) [Ratio] 19.9 % High 11.5-15.0 [facility] Comment on above: Order Comment: No: D o not add to previous draw Performed By: #### 5 0103 #### [facility] [address] [place] [address], [facility] Hematocrit (Bld) [Volume fraction] 30.2 % Low 39.0-50.0 [facility] Comment on above: Order Comment: No: D o not add to previous draw Performed By: #### 5 0103 #### [facility] [address] [place] [id number], [facility] Hemoglobin (Bld) [Mass/Vol] 9.0 g/dL Low 13.0-17.0 [facility] Comment on above: Order Comment: No: D o not add to previous draw Performed By: #### 5 0103 #### [facility] [address] [place] [address], [facility] IMMATURE GRANS 0.2 % Normal 0.0-1.0 [facility] Comment on above: Order Comment: No: D o not add to previous draw Performed By: #### 5 0103 #### [facility] [address] [facility] [address], [facility] Lymphocytes (Bld) [#/Vol] 0.4 10*3/uL Low 1.2-4.0 [facility] Comment on above: Order Comment: No: D o not add to previous draw Performed By: #### 5 0103 #### [facility] [address] [facility] [address], [facility] Lymphocytes/100 WBC (Bld) 6.6 % Low 20.0-45.0 [facility] Comment on above: Order Comment: No: D o not add to previous draw Performed By: #### 5 0103 #### [facility] [address] [place] [address], [facility] MCH (RBC) [Entitic mass] 23.4 pg Low 27.0-33.0 [facility] Comment on above: Order Comment: No: D o not add to previous draw Performed By: #### 5 0103 #### [facility] [address] MCHC (RBC) [Mass/Vol] 29.8 g/dL Low 32.0-35.0 [facility] Comment on above: Order Comment: No: D o not add to previous draw Performed By: #### 5 0103 #### [facility] [address] [place] [address], [facility] MCV (RBC) [Entitic vol] 78.4 fL Low 82.0-98.0 [facility] Comment on above: Order Comment: No: D o not add to previous draw Performed By: #### 5 0103 #### [facility] [address] [facility] [address], [facility] Monocytes (Bld) [#/Vol] 0.7 10*3/uL Normal 0.1-1.0 [facility] Comment on above: Order Comment: No: D o not add to previous draw Performed By: #### 5 0103 #### [facility] [address] [facility] [place] [address], [facility] MONOS 10.3 % Normal 5.0-12.0 [facility] Comment on above: Order Comment: No: D o not add to previous draw Performed By: #### 5 0103 #### [facility] [address] [facility] [address], [facility] Neutrophils/100 WBC (Bld) 78.9 % High 40.0-72.0 [facility] Comment on above: Order Comment: No: D o not add to previous draw Performed By: #### 5 0103 #### [facility] [address] [place] [address], [facility] Nucleated RBC/100 WBC (Bld) [Ratio] 0 % Normal 0-0 [facility] Comment on above: Order Comment: No: D o not add to previous draw Performed By: #### 5 0103 #### [facility] [address] [place] [address], [facility] PLAT CNT 196 10*3/uL Normal 150-400 [facility] Comment on above: Order Comment: No: D o not add to previous draw Performed By: #### 5 0103 #### [facility] [address] [facility] [facility] [address], [facility] RBC (Bld) [#/Vol] 3.85 10*6/uL Low 4.20-5.70 [facility] Comment on above: Order Comment: No: D o not add to previous draw Performed By: #### 5 0103 #### [facility] [address] [place] [address], [facility] WBC (Bld) [#/Vol] 6.52 10*3/uL Normal 4.00-10.60 [facility] Comment on above: Order Comment: No: D o not add to previous draw Performed By: #### 5 0103 #### [facility] [address] [facility] HEMOGLOBIN A1Con 04-26-2022 Glucose [Moles/Vol] 111 mmol/L Normal [facility] Comment on above: Order Comment: Check Pacemaker/AICD Lead Position, Chest X-ray PA \EANDE\ LAT in Dept ;DO NOT lift affected arm above shoulder. S/P pacemaker/ICD implant. Verify lead placement Performed By: #### 3 1791 ####[facility] [facility] HbA1c (Bld) [Mass fraction] 5.5 % Normal 4.0-6.0 [facility] Comment on above: Order Comment: Check Pacemaker/AICD Lead Position, Chest X-ray PA \EANDE\ LAT in Dept ;DO NOT lift affected arm above shoulder. S/P pacemaker/ICD implant. Verify lead placement Performed By: #### 3 1791 ####[facility] MAGNESIUM BLOODon 04-26-2022 Magnesium [Mass/Vol] 2.6 mg/dL Normal 1.9-2.7 [facility] Comment on above: Order Comment: No: D o not add to previous draw Performed By: #### 3 3 #### [facility] [address] [place] [address], [facility] APTTon 04-25-2022 aPTT Coag (Bld) [Time] 49.8 s High 25.0-35.0 Th e [facility] Comment on above: Order Comment: [...] PURPOSE. Performed By: #### 5 0103 #### [facility] [address] [place] [address], [facility] BASIC METABOLIC PANELon 04-08 Calcium [Mass/Vol] 8.8 mg/dL Normal 8.6-10.3 [facility] Comment on above: Order Comment: No: D o not add to previous draw Performed By: #### 3 2044 #### [facility] [address] [place] [address], [facility] Chloride [Moles/Vol] 100 mmol/L Normal 98-107 [facility] Comment on above: Order Comment: No: D o not add to previous draw Performed By: #### 3 2044 #### [facility] [address] [place] [address], [place] CO2 [Moles/Vol] 27 mmol/L Normal 21-31 [facility] Comment on above: Order Comment: No: D o not add to previous draw Performed By: #### 3 2044 #### [facility] [address] [place] [address], [place] Creatinine [Mass/Vol] 2.82 mg/dL High 0.70-1.30 [facility] Comment on above: Order Comment: No: D o not add to previous draw Performed By: #### 3 2044 #### [facility] [address] [place] [address], [facility] EGFR 23 ml/min/1.73sq m Abnormal >60 [facility] Comment on above: Order Comment: No: D o not add to previous draw Result Comment: [facility]'s estimated glomerular filtration rate (eGFR) [...] individuals. Performed By: #### 3 2044 #### [facility] [address] [place] [address], [facility] Glucose [Mass/Vol] 114 mg/dL High 70-100 [facility] Comment on above: Order Comment: No: D o not add to previous draw Performed By: #### 3 2044 #### [facility] [address] [place] [address], [facility] Potassium [Moles/Vol] 4.4 mmol/L Normal 3.5-5.1 [facility] Comment on above: Order Comment: No: D o not add to previous draw Performed By: #### 3 2044 #### [facility] [address] [place] [address], [place] Sodium [Moles/Vol] 137 mmol/L Normal 136-145 [facility] Comment on above: Order Comment: No: D o not add to previous draw Performed By: #### 3 2044 #### [facility] [address] [place] [address], [place] Urea nitrogen [Mass/Vol] 61 mg/dL High 7-25 [facility] Comment on above: Order Comment: No: D o not add to previous draw Performed By: #### 3 2044 #### [facility] [address] BNP (B-TYPE NATRIURETIC PEPT ANH)on 04-25-2022 Natriuretic peptide B (Bld) [Mass/Vol] 1813 pg/mL High 0-100 [facility] Comment on above: Order Comment: Yes: Add to Previous draw if able Result Comment: Give n the appropriate clinical setting a BNP result of >100 pg/mL indicates congestive heart failure. Performed By: #### 3 2044 #### [facility] [address] C REACTIVE PROTEINon 022 CRP [Mass/Vol] 17.2 mg/L High 0.0-7.0 [facility] Comment on above: Order Comment: No: D o not add to previous draw Performed By: #### 5 102 #### [facility] [address] CBC W/DIFFon 04-25-2022 ABS IMM GRANS 0.0 10*3/uL Normal 0.0-0.2 [facility] Comment on above: Performed By: #### 5 102 #### [facility] [address] ABS NEUTROPHILS 5.4 10*3/uL Normal 1.6-7.6 [facility] Comment on above: Performed By: #### 5 102 #### [facility] [address] Basophils (Bld) [#/Vol] 0.0 10*3/uL Normal 0.0-0.2 [facility] Comment on above: Performed By: #### 5 102 #### [facility] [address] Basophils/100 WBC (Bld) 0.6 % Normal 0.0-1.0 [facility] Comment on above: Performed By: #### 5 0103 #### [facility] [address] [place] [address], [facility] Eosinophils (Bld) [#/Vol] 0.2 10*3/uL Normal 0.0-0.5 [facility] Comment on above: Performed By: #### 5 0103 #### [facility] [address] [place] [address], [facility] Eosinophils/100 WBC (Bld) 2.5 % Normal 0.0-6.0 [facility] Comment on above: Performed By: #### 5 0103 #### [facility] [address] [facility] [address] Erythrocyte distribution width (RBC) [Ratio] 19.9 % High 11.5-15.0 [facility] Comment on above: Performed By: #### 5 0103 #### [facility] [address] [facility] [address] Hematocrit (Bld) [Volume fraction] 31.6 % Low 39.0-50.0 [facility] Comment on above: Performed By: #### 5 0103 #### [facility] [address] [facility] [address] Hemoglobin (Bld) [Mass/Vol] 9.3 g/dL Low 13.0-17.0 [facility] Comment on above: Performed By: #### 5 0103 #### [facility] [address] [place] [address], [facility] IMMATURE GRANS 0.2 % Normal 0.0-1.0 [facility] Comment on above: Performed By: #### 5 3 #### [facility] [address] [facility] [place] [address], [facility] Lymphocytes (Bld) [#/Vol] 0.3 10*3/uL Low 1.2-4.0 [facility] Comment on above: Performed By: #### 5 0103 #### [facility] [address] [place] [address], [facility] Lymphocytes/100 WBC (Bld) 4.4 % Low 20.0-45.0 [facility] Comment on above: Performed By: #### 5 0103 #### [facility] [address] MCH (RBC) [Entitic mass] 23.1 pg Low 27.0-33.0 [facility] Comment on above: Performed By: #### 5 0103 #### [facility] [address] MCHC (RBC) [Mass/Vol] 29.4 g/dL Low 32.0-35.0 [facility] Comment on above: Performed By: #### 5 0103 #### [facility] [address] [place] [address], [facility] MCV (RBC) [Entitic vol] 78.6 fL Low 82.0-98.0 [facility] Comment on above: Performed By: #### 5 0103 #### [facility] [address] [place] [address], [facility] Monocytes (Bld) [#/Vol] 0.6 10*3/uL Normal 0.1-1.0 [facility] Comment on above: Performed By: #### 5 0103 #### [facility] [address] [place] [address], [facility] MONOS 8.9 % Normal 5.0-12.0 [facility] Comment on above: Performed By: #### 5 3 #### [facility] [address] [place] [address], [facility] Neutrophils/100 WBC (Bld) 83.4 % High 40.0-72.0 [facility] Comment on above: Performed By: #### 5 0103 #### [facility] [address] [place] [address], [facility] Nucleated RBC/100 WBC (Bld) [Ratio] 0 % Normal 0-0 [facility] Comment on above: Performed By: #### 5 0103 #### [facility] [address] [place] [address], [place] PLAT CNT 191 10*3/uL Normal 150-400 [facility] Comment on above: Performed By: #### 5 0103 #### [facility] [address] [place] [address], [facility] RBC (Bld) [#/Vol] 4.02 10*6/uL Low 4.20-5.70 [facility] Comment on above: Performed By: #### 5 0103 #### [facility] [address] [place] [id number], [facility] WBC (Bld) [#/Vol] 6.43 10*3/uL Normal 4.00-10.60 [facility] Comment on above: Performed By: #### 5 0103 #### [facility] [address] [place] [address], [facility] COMPLEMENT 3on 04-25-2022 COMPLEMENT 3 104 mg/dL Normal 79-152 [facility] Comment on above: Order Comment: No: D o not add to previous draw Performed By: #### 5 0103 #### [facility] [address] [place] [address], [facility] COMPLEMENT 4on 04-25-2022 COMPLEMENT 4 23 mg/dL Normal 16-38 [facility] Comment on above: Order Comment: No: D o not add to previous draw Performed By: #### 5 0103 #### [facility] [address] [place] [address], [facility] CPKon 04-25-2022 CK [Catalytic activity/Vol] 23 U/L Low 30-223 [facility] Comment on above: Order Comment: No: D o not add to previous draw Performed By: #### 7 0207 #### [facility] [address] [place] [address], [facility] CREATININE URINE RANDOMon Creatinine (U) [Mass/Vol] 104.0 mg/dL Normal [facility] Comment on above: Order Comment: Check Pacemaker/AICD Lead Position, Chest X-ray PA \EANDE\ LAT in Dept ;DO NOT lift affected arm above shoulder. S/P pacemaker/ICD implant. Verify lead placement Result Comment: Ther e are no established reference values for random urine specimens Performed By: #### 4 1919, [id number] ####[facility] [address] FERRITINon 04-25-2022 Ferritin [Mass/Vol] 50 ng/mL Normal 24-336 [facility] Comment on above: Order Comment: No: D o not add to previous draw Performed By: #### 7 0207 #### [facility] [address] [place] [address], [facility] HEPATITIS B CORE ANTIBODYon 04-25-2022 HEP B CORE AB Non-Reactive Normal NONREACTIVE [facility] Comment on above: Order Comment: No: D o not add to previous draw Performed By: #### 7 0207 #### [facility] [address] [place] [address], [facility] HEPATITIS C ANTIBODYon 04-25 ANTI-HCV Non-Reactive Normal NONREACTIVE [facility] Comment on above: Order Comment: No: D o not add to previous draw Performed By: #### 7 0207 #### [facility] [address] [place] [address], [facility] IMMUNOFIXATION BLOODon 04-25 IgA [Mass/Vol] 733 mg/dL High 60-413 [facility] Comment on above: Performed By: #### 5 0103 #### [facility] [address] [place] [address], [facility] IgG [Mass/Vol] 1330 mg/dL Normal 591-1540 [facility] Comment on above: Performed By: #### 5 0103 #### [facility] [address] [place] [address], [facility] IgM [Mass/Vol] 365 mg/dL High 54-285 [facility] Comment on above: Performed By: #### 5 0103 #### [facility] [address] [place] [address], [facility] IMMUNOFIXATION Normal [facility] Comment on above: Result Comment: Seru m immunofixation reveals a monoclonal [place] M gammopathy. SEE SEPARATE REPORT Performed By: #### 5 0103 #### [facility] [address] [place] [address], [facility] KAPPA LIGHT CHN See [place] report. Normal 0.33-1.94 [facility] Comment on above: Performed By: #### 5 0103 #### [facility] [address] [place] [address], [facility] KAPPA/LAMDBA RATIO See [place] report. Normal 0.26-1.65 Th e [facility] Comment on above: Result Comment: For patients with renal impairment, use a kappa/lambda ratio of 0.37-3.10 Performed By: #### 5 0103 #### [facility] [address] [place] [address], [facility] LAMBDA LIGHT CHN See [place] report. Normal 0.57-2.63 [facility] Comment on above: Performed By: #### 5 0103 #### [facility] [address] [place] [address], [place] LIVER BATTERYon 04-25-2022 Albumin [Mass/Vol] 3.3 g/dL Low 3.5-5.7 [facility] Comment on above: Order Comment: No: D o not add to previous draw Performed By: #### 3 2044 #### [facility] [address] [place] [address], [place] ALKALINE PHOSPH 78 IU/L Normal 34-104 [facility] Comment on above: Order Comment: No: D o not add to previous draw Performed By: #### 3 2044 #### [facility] [address] [place] [address], [place] ALT [Catalytic activity/Vol] 15 U/L Normal 7-52 [facility] Comment on above: Order Comment: No: D o not add to previous draw Performed By: #### 3 2044 #### [facility] [address] [place] [address], [place] AST [Catalytic activity/Vol] 16 U/L Normal 13-39 [facility] Comment on above: Order Comment: No: D o not add to previous draw Performed By: #### 3 2044 #### [facility] [address] [place] [address], [place] Bilirubin [Mass/Vol] 1.2 mg/dL High 0.3-1.0 [facility] Comment on above: Order Comment: No: D o not add to previous draw Performed By: #### 3 2044 #### [facility] [address] [place] [address], [place] Bilirubin.direct [Mass/Vol] 0.4 mg/dL High 0.0-0.2 [facility] Comment on above: Order Comment: No: D o not add to previous draw Performed By: #### 3 2044 #### [facility] [address] [place] [address], [place] Protein [Mass/Vol] 6.8 g/dL Normal 6.0-8.3 [facility] Comment on above: Order Comment: No: D o not add to previous draw Performed By: #### 3 2044 #### [facility] [address] [place] [address], [facility] MAGNESIUM BLOODon 04-25-2022 Magnesium [Mass/Vol] 2.7 mg/dL Normal 1.9-2.7 [facility] Comment on above: Order Comment: No: D o not add to previous draw Performed By: #### 3 5 #### [facility] [address] [place] [address], [facility] PHOSPHORUS BLOODon 2 Phosphate [Mass/Vol] 3.7 mg/dL Normal 2.5-5.0 [facility] Comment on above: Order Comment: No: D o not add to previous draw Performed By: #### 7 0207 #### [facility] [address] POC SARS COV2 ANTIGEN NEGATI VEon 04-25-2022 POC SARS COV2 ANTIGEN NEG Negative Normal NEGATIVE [facility] Comment on above: Result Comment: [...] antigen from SARS-CoV-2 in direct nasopharyngeal swab (RIVET DRIVER) specimens from individuals who are suspected of [...] of Accreditation. Performed By: #### 3 2044 ####[facility] [place] [address], [place] PROTEIN ELECT Marcos 04-25-2022 Protein [Mass/Vol] 6.9 g/dL Normal 6.0-8.3 [facility] Comment on above: Order Comment: No: D o not add to previous draw Performed By: #### 7 0207 #### [facility] [address] [place] [address], [place] Protein [Mass/Vol] 0.20 g/dL High 0.00-0.00 [facility] Comment on above: Order Comment: No: D o not add to previous draw Performed By: #### 7 0207 #### [facility] [address] [place] [address], [place] PROTEIN ELECT Normal [facility] Comment on above: Order Comment: No: D o not add to previous draw Result Comment: The abnormal band in the gamma globulin region suggests monoclonal gammopathy. SEE SEPARATE REPORT Performed By: #### 7 0207 #### [facility] [address] [place] [address], [place] PROTEIN ELECT URon PROTEIN ELECT No abnormal bands se en. SEE SEPARATE REPORT Normal [facility] Comment on above: Order Comment: Check Pacemaker/AICD Lead Position, Chest X-ray PA \EANDE\ LAT in Dept ;DO NOT lift affected arm above shoulder. S/P pacemaker/ICD implant. Verify lead placement Performed By: #### 4 1918, [id number] ####[facility] [place] [address], [place] U TOTAL PROTEIN 47.8 mg/dL Normal [facility] Comment on above: Order Comment: Check Pacemaker/AICD Lead Position, Chest X-ray PA \EANDE\ LAT in Dept ;DO NOT lift affected arm above shoulder. S/P pacemaker/ICD implant. Verify lead placement Result Comment: Ther e are no established reference values for random urine specimens Performed By: #### 4 1918, [id number] ####[facility] [place] [address], [facility] PROTHROMBIN TIMEon 2 INR Coag (PPP) [Relative time] 1.71 {INR} High 0.91-1.16 [facility] Comment on above: Order Comment: No: D o not add to previous draw Result Comment: ACCC P RECOMMENDED INR FOR WARFARIN THERAPY --------- ------- CONDITION INR PROPHYLAXIS OF VENOUS THROMBOSIS 2-3 (HIGH-RISK SURGERY) TREATMENT OF VENOUS THROMBOSIS 2-3 TREATMENT OF PULMONARY EMBOLISM 2-3 PREVENTION OF SYSTEMIC EMBOLISM: 2-3 ACUTE MYOCARDIAL INFARCTION TISSUE HEART VALVES VALVULAR HEART DISEASE ATRIAL FIBRILLATION RECURRENT SYSTEMIC EMBOLISM MECHANICAL HEART VALVE 2.5-3.5 FROM: ORAL ANTICOAGULANTS. MECHANISM OF ACTION, CLINICAL EFFECTIVENESS, AND OPTIMAL THERAPEUTIC RANGE. CHEST 1995;[id number]. Performed By: #### 5 0103 #### [facility] [address] [facility] [place] [address], [facility] PT Coag (PPP) [Time] 19.8 s High 12.3-14.8 [facility] Comment on above: Order Comment: No: D o not add to previous draw Result Comment: ALL RESULTS MUST BE INTERPRETED WITH RESPECT TO BLOOD DRAWING ARTIFACT OR DILUTION ERROR OF ANTICOAGULANT AT THE TIME OF SAMPLING. Performed By: #### 5 0103 #### [facility] [address] [place] [address], [facility] SEDIMENTATION RATEon 04-25- 022 SED RATE 63 mm/hr High 0-10 The [facility] Comment on above: Order Comment: No: D o not add to previous draw Performed By: #### 5 0608 #### [facility] [address] SERUM FREE LIGHT CHAINS ILon 04-25-2022 FREE KAPPA LIGHT CHAINS 14.36 mg/dL High 0.37-1.94 The [facility] FREE KAPPA/LAMBDA RATIO 2.00 High 0.26-1.65 The [facility] FREE LAMBDA LIGHT CHAINS 7.19 mg/dL High 0.57-2.63 The [facility] [place] Normal The [facility] Comment on above: Result Comment: Test Performed by [employer] [address] [place] [address] - Released 05/02/2022 21:21 Result changed by IF on 05/02/2022 21:21. The previous value was Test Performed by [employer] [address] [place] [id number] [phone] TIBC- INCLUDES IRONon 2021 FE SATURATION 9 % Low 20-50 [facility] Comment on above: Order Comment: No: D o not add to previous draw Performed By: #### 7 0207 #### [facility] [address] Iron [Mass/Vol] 31 ug/dL Low 50-212 [facility] Comment on above: Order Comment: No: D o not add to previous draw Performed By: #### 7 0207 #### [facility] [address] TIBC 349 mcg/dL Normal 250-450 [facility] Comment on above: Order Comment: No: D o not add to previous draw Performed By: #### 7 0207 #### [facility] [address] UIBC 318 mcg/dL Normal 155-355 [facility] Comment on above: Order Comment: No: D o not add to previous draw Performed By: #### 7 0207 #### [address] TROPONIN-Ion 04-25-2022 Troponin I.cardiac [Mass/Vol] 0.03 ng/mL Normal 0.00-0.04 [facility] Comment on above: Order Comment: No: D o not add to previous draw Result Comment: REFE RENCE RANGES: 0.00 - 0.04 ng/ml NORMAL 0.05 - 0.50 ng/ml INDETERMINATE > 0.50 ng/ml CONSISTENT WITH AN M.I. Performed By: #### 3 5 #### [place] [address], [facility] US RENAL WITH BLADDERon 04-08 US RENAL WITH BLADDER [facility] Department of Radiology [address] [place], [place] [id number] Patient Name: MAN PATEL : 1950 Sex: M Age: Race: White Pt. Location: [address] [place] [address] Patient Status: I Ordered Date: 04/25/2022 3:40:00 [...] cyst. Electronically signed: Joel Lambert. Transcribed by: [email or web address], User Resident: Electronically Signed by: TIFFANIE CASTILLO @ 05/08/2022 08:26 AM Normal [facility] Comment on above: Order Comment: R/O H ydronephrosis BNPon 04-24-2022 Natriuretic peptide B (Bld) [Mass/Vol] 26120.0 pg/mL Critically high <=900.0 The [facility] Comment on above: Performed By: #### H STROPN, BNP, BMP ####[facility] Procedmhyn[address] [place], [place] [address]OeLatoya Anthony CBC AUTO DIFFon 04-24-2022 BASO # 0.1 103/ul Normal 0.0-0.1 [facility] Comment on above: Performed By: #### C BC ####[facility] Zziejdspjc2534 [place], [place] [address]VyLatoya Anthony Basophils/100 WBC (Bld) 0.8 % Normal 0.2-2.0 [facility] Comment on above: Performed By: #### C BC ####[facility] Rljlpjqkuc0987 [place], [place] [address]Ud. Elba Anthony EO # 0.2 103/ul Normal 0.0-0.7 [facility] Comment on above: Performed By: #### C BC ####[facility] [address] [place] [address]Dr. Elba Anthony Eosinophils/100 WBC (Bld) 3.0 % Normal 0.9-7.0 [facility] Comment on above: Performed By: #### C BC ####[facility] Syegpjwzmt[address] [place] [address]Dr. Elba Anthony Erythrocyte distribution width (RBC) [Ratio] 20.0 % Critically high 11.0-15.0 [facility] Comment on above: Performed By: #### C BC ####[facility] Lib[address]zub[address] [place] [address]Dr. Elba Anthony Hematocrit (Bld) [Volume fraction] 32.7 % Critically low 42.0-54.0 [facility] Comment on above: Performed By: #### C BC ####[facility] M[address] [place], [place] [address]Dr. Elba nAthony Hemoglobin (Bld) [Mass/Vol] 9.7 g/dL Critically low 14.0-18.0 [facility] Comment on above: Performed By: #### C BC ####[facility] Bnoeakranl[address] [place], [place] [address]Dr. Elba Anthony IG # 0.02 10e3/ul Normal 0.00-0.03 [facility] Comment on above: Performed By: #### C BC ####[facility] Ifnwaxceey[address] [place], [place] [address]Dr. Elba Anthony IG % 0.3 % Normal 0.0-0.5 [facility] Comment on above: Performed By: #### C BC ####[facility] Ndzzuissau4[address] [place], [place] [address]Dr. Elba Anthony LYMPH # 0.3 103/ul Critically low 1.2-3.8 [facility] Comment on above: Performed By: #### C BC ####[facility] Fgadzgneoy[address] [place], [place] [address]Dr. Elba Anthony Lymphocytes/100 WBC (Bld) 4.9 % Critically low 20.5-60.0 [facility] Comment on above: Performed By: #### C BC ####[facility] C[address]iwsahvu[address] [place] [address]DrLatoya Anthony MANUAL DIFF REQ NO Normal [facility] Comment on above: Performed By: #### C BC ####[facility] Uobclniinx[address] [place] [address]Dr. Elba Anthony MCH (RBC) [Entitic mass] 23.8 pg Critically low 25.9-34.0 [facility] Comment on above: Performed By: #### C BC ####[facility] Mlgltnilvh8498 [place] [address]Dr. Elba Anthony MCHC (RBC) [Mass/Vol] 29.7 g/dL Critically low 29.9-35.2 [facility] Comment on above: Performed By: #### C BC ####[facility] Agx[address]fs[address] [place], [place] [address]DrLatoya Anthony MCV (RBC) [Entitic vol] 80.3 fL Normal 80.0-94.0 [facility] Comment on above: Performed By: #### C BC ####[facility] Dmobsabwjs[address] [place], [place] [address]DrLatoya Anthony MONO # 0.6 103/ul Normal 0.3-0.8 [facility] Comment on above: Performed By: #### C BC ####[facility] Jnivnmccbv[address] [place], [place] [address]DrLatoya Anthony Monocytes/100 WBC (Bld) 9.6 % Normal 1.7-12.0 [facility] Comment on above: Performed By: #### C BC ####[facility] Y[address]ryww[address] [place], [place] [address]DrLatoya Anthony NEUT # 5.2 103/ul Normal 1.4-6.5 [facility] Comment on above: Performed By: #### C BC ####[facility] Lxgbv[address]ieh[address] [place], [place] [address]DrLatoya Anthony Neutrophils/100 WBC (Bld) 81.4 % Critically high 43.0-75.0 [facility] Comment on above: Performed By: #### C BC ####[facility] [address] [place] [id number]. Elba Anthony Platelet mean volume (Bld) [Entitic vol] 10.1 fL Normal 9.5-13.5 [facility] Comment on above: Performed By: #### C BC ####[facility] Lw[address]x4[address] [place] [id number]. Elba Anthony PLT 214 103/ul Normal 150-450 [facility] Comment on above: Performed By: #### C BC ####[facility] Zzzrudzoff6743 [place], [place] [address]Zm. Elba Anthony RBC 4.07 106/ul Critically low 4.70-6.10 [facility] Comment on above: Performed By: #### C BC ####[facility] Dpsxwiyycw27[address] [place] [id number]. Elba Anthony WBC 6.4 103/ul Normal 4.0-11.0 [facility] Comment on above: Performed By: #### C BC ####[facility] Tzcirbivbd6909 [place], [place] [address]Da. Elba Anthony Covid-19 PCR ([facility])on 04-08 SARS-CoV-2 (COVID-19) RNA ELIZABETH+probe Ql (Unsp spec) Not detected Normal NOT DETECTED [facility] Comment on above: Result Comment: When diagnostic [...] for this test is supported by the Interpreter [employer] of Health and Human Service's declaration that [...] be used). Performed By: #### C VDTB ####[facility] Ajnfhzdeeg[address] [place], [place] [address]Dr. Elba Anthony ER URINE PROFILEon 2 Bilirubin Ql (U) Negative Normal NEGATIVE [facility] Comment on above: Performed By: #### E RUR ####[facility] Bxppvaflkr[address] [place], [place] [address]Dr. Elba Anthony Clarity (U) CLEAR Normal CLEAR [facility] Comment on above: Performed By: #### E RUR ####[facility] T[address]qvzbzxj[address] [place], [place] [address]Dr. Elba Anthony Color (U) LT. YELLOW Normal YELLOW [facility] Comment on above: Performed By: #### E RUR ####[facility] Ymhjxptnbl[address] [place], [place] [address]Dr. Elba Anthony ERUAHD A micrscopic examina tion will be performed if indicated. Normal [facility] Comment on above: Performed By: #### E RUR ####[facility] Gzycrgqswl[address] [place], [place] [address]Dr. Elba Anthony Glucose Ql (U) Negative Normal NEGATIVE [facility] Comment on above: Performed By: #### E RUR ####[facility] Aqlvffyhwo4[address] [place], [place] [address]Dr. Elba Anthony Hemoglobin Ql (U) Negative Normal NEGATIVE The [facility] Comment on above: Performed By: #### E RUR ####[facility] Ljccezdkpm[address] [place], [place] [address]Dr. Elba Anthony Ketones Ql (U) Negative Normal NEGATIVE The [facility] Comment on above: Performed By: #### E RUR ####[facility] Plfiqobnft[address] [place], [place] [address]Dr. Elba Anthony LEUKOCYTES Negative Normal NEGATIVE The [facility] Comment on above: Performed By: #### E RUR ####[facility] Qkgkopbanz[address] [place] [address]Dr. Elba Anthony Nitrite Ql (U) Negative Normal NEGATIVE [facility] Comment on above: Performed By: #### E RUR ####[facility] Yrbavkakcj[address] [place], [place] [address]Dr. Elba Anthony pH (U) 6.0 [pH] Normal 5-9 [facility] Comment on above: Performed By: #### E RUR ####[facility] Kkqbldvcis[address] [place], [place] [address]Dr. Elba Anthony SPEC GRAVITY 1.010 Normal 1.005-<=1.02 5 [facility] Comment on above: Performed By: #### E RUR ####[facility] Gnwfkvnhxp2627[address] [place], [place] [address]Dr. Elba Anthony UA PROTEIN Negative Normal NEGATIVE/ TRACE [facility] Comment on above: Performed By: #### E RUR ####[facility] Idgudsnlfi[address] [place], [place] [address]Dr. Elba Anthony UR MICRO IND NOT INDICATED Normal [facility] Comment on above: Performed By: #### E RUR ####[facility] Uokbbxhtny[address] [place], [place] [address]Dr. Elba Anthony Urobilinogen Qn (U) 2.0 {Caden'U}/dL Abnormal 0.2 - 1. 0 [facility] Comment on above: Performed By: #### E RUR ####[facility] Q[address]cs[address]qof[address] [place], [place] [address]DrLatoya Anthony PROF CHEM 8 (BAS METB)on Anion gap [Moles/Vol] 16.7 mmol/L Normal [facility] [place] [facility] Comment on above: Performed By: #### H STROPN, BNP, BMP ####[facility] Ylglpbaaqn1907 [place] [address]DrLatoya Anthony Calcium [Mass/Vol] 9.2 mg/dL Normal 8.5-10.1 [facility] Comment on above: Performed By: #### H STROPN, BNP, BMP ####[facility] Qquynbfffz9405 [place] [address]Dr. Elba Anthony Chloride [Moles/Vol] 97 mmol/L Critically low 98-107 [facility] Comment on above: Performed By: #### H STROPN, BNP, BMP ####[facility] Yzkicccycq[address] [place], [place] [address]Dr. Elba Anthony CO2 [Moles/Vol] 26.3 mmol/L Normal 21.0-32.0 [facility] Comment on above: Performed By: #### H STROPN, BNP, BMP ####[facility] Hltlzzuavb[address] [place], [place] [address]Dr. Elba Anthony Creatinine [Mass/Vol] 3.32 mg/dL Critically high 0.70-1.30 [facility] Comment on above: Performed By: #### H STROPN, BNP, BMP ####[facility] Jczzpdltgv[address] [place], [place] [address]Dr. Elba Raj EGFR-AF SOMALI 22 mL/min/1.73m2 Critically low >=60 [facility] Comment on above: Performed By: #### H STROPN, BNP, BMP ####[facility] Ttmqgsdbfz[address] [place], [place] [address]Dr. Elba Anthony EGFR-NON AF SOMALI 18 mL/min/1.73m2 Critically low >=60 [facility] Comment on above: Performed By: #### H STROPN, BNP, BMP ####[facility] Y[address]aisqghc[address] [place], [place] [address]Dr. Elba Anthony Glucose [Mass/Vol] 158 mg/dL Critically high 74-106 [facility] Comment on above: Performed By: #### H STROPN, BNP, BMP ####[facility] Knligtwnyl[address] [place], [place] [address]Dr. Elba Anthony Potassium [Moles/Vol] 5.0 mmol/L Normal 3.5-5.1 [facility] Comment on above: Performed By: #### H STROPN, BNP, BMP ####[facility] [address]ob[address]ysg[address] [place] [address]Dr. Elba Anthony Sodium [Moles/Vol] 135 mmol/L Critically low 136-145 [facility] Comment on above: Performed By: #### H STROPN, BNP, BMP ####[facility] Ujojduitdk8590 [place] [address]Dr. Elba Anthony Urea nitrogen [Mass/Vol] 67.0 mg/dL Critically high 7.0-18.0 [facility] Comment on above: Performed By: #### H STROPN, BNP, BMP ####[facility] B[address]fmnuofqh[address] [place] [address]Dr. Elba Anthony Urea nitrogen/Creatinine [Mass ratio] 20.2 mg/mg Normal [facility] Comment on above: Performed By: #### H STROPN, BNP, BMP ####[facility] Knexdskwje[address] [place] [address]Dr. Elba Anthony TROPONIN, HIGH SENSITIVITYon 04-24-2022 HSTROP 36.4 pg/mL Normal 4.0-76.1 [facility] Comment on above: Result Comment: CUT- OFF POINTS HAVE BEEN ESTABLISHED BASED ON THE FOURTH UNIVERSAL DEFINITIONS OF MYOCARDIALINFARCTION. THE UPPER REFERENCE LIMIT (URL) OF TROPONIN, DEFINED THE 99TH PERCENTILE OFcTnI DISTRIBUTION IN A REFERENCE POPULATION, HAS BEEN CONFIRMED THE DECISION THRESHOLDFOR OR DIAGNOSIS. Performed By: #### H GUILLERMINA, BNP, BMP ####[facility] Tpe[address]ebkdhu[address] [place] [address]Dr. Elba Anthony XR CHEST 1 Von 04-24-2022 XR CHEST 1 V Normal [facility] BNPon 04-22-2022 Natriuretic peptide B (Bld) [Mass/Vol] 13380.0 pg/mL Critically high <=900.0 [facility] Comment on above: Performed By: #### B RIVET DRIVER, BMP ####[facility] Regseqzmqu15[address] [place] [address]Dr. Elba Anthony PROF CHEM 8 (BAS METB)on Anion gap [Moles/Vol] 13.8 mmol/L Normal [facility] Comment on above: Performed By: #### B RIVET DRIVER, BMP ####[facility] Yxuetuyujy[address] [place], [place] [address]DrLatoya Anthony Calcium [Mass/Vol] 8.7 mg/dL Normal 8.5-10.1 [facility] Comment on above: Performed By: #### B RIVET DRIVER, BMP ####[facility] Ukuygyocvg64[address] [place], [place] [address]Dr. Elba Anthony Chloride [Moles/Vol] 98 mmol/L Normal 98-107 [facility] Comment on above: Performed By: #### B RIVET DRIVER, BMP ####[facility] Gcmntcnhou[address] [place], [place] [address]Dr. Elba Anthony CO2 [Moles/Vol] 29.1 mmol/L Normal 21.0-32.0 [facility] Comment on above: Performed By: #### B RIVET DRIVER, BMP ####[facility] Zmgzxnferl[address] [place], [place] [address]Dr. Elba Anthony Creatinine [Mass/Vol] 2.89 mg/dL Critically high 0.70-1.30 [facility] Comment on above: Performed By: #### B RIVET DRIVER, BMP ####[facility] J[address]cuwurdqh[address] [place], [place] [address]Dr. Elba Anthony EGFR-AF SOMALI 26 mL/min/1.73m2 Critically low >=60 [facility] Comment on above: Performed By: #### B RIVET DRIVER, BMP ####[facility] Jiypluonvn8[address] [place], [place] [address]Dr. Elba Anthony EGFR-NON AF SOMALI 22 mL/min/1.73m2 Critically low >=60 [facility] Comment on above: Performed By: #### B RIVET DRIVER, BMP ####[facility] Pbpgrwoobe101[address] [place], [place] [address]Dr. Elba Anthony Glucose [Mass/Vol] 108 mg/dL Critically high 74-106 [facility] Comment on above: Performed By: #### B RIVET DRIVER, BMP ####[facility] Gwaxxucesj[address] [place], [place] [address]Dr. Elba Anthony Potassium [Moles/Vol] 4.9 mmol/L Normal 3.5-5.1 [facility] Comment on above: Performed By: #### B RIVET DRIVER, BMP ####[facility] Rdeodufsfi10[address] [place] [address]Dr. Elba Anthony Sodium [Moles/Vol] 136 mmol/L Normal 136-145 [facility] Comment on above: Performed By: #### B RIVET DRIVER, BMP ####[facility] Xfbkskszip56[address] [place], [place] [address]Dr. Elba Anthony Urea nitrogen [Mass/Vol] 63.0 mg/dL Critically high 7.0-18.0 [facility] Comment on above: Performed By: #### B RIVET DRIVER, BMP ####[facility] Mgfnpbxhra68[address] [place], [place] [address]Dr. Elba Anthony Urea nitrogen/Creatinine [Mass ratio] 21.8 mg/mg Normal [facility] Comment on above: Performed By: #### B RIVET DRIVER, BMP ####[facility] Nftrpbjxtx75[address] [place], [place] [address]Dr. Elba Anthony BNPon 04-15-2022 Natriuretic peptide B (Bld) [Mass/Vol] 78784.0 pg/mL Critically high <=900.0 [facility] Comment on above: Result Comment: repe ated Performed By: #### B RIVET DRIVER, BMP ####[facility] Cvpevtqujw[address] [place], [place] [address]Dr. Elba Anthony PROF CHEM 8 (BAS METB)on Anion gap [Moles/Vol] 16.8 mmol/L Normal [facility] Comment on above: Performed By: #### B RIVET DRIVER, BMP ####[facility] Hhiejsdqrf6[address] [place], [place] [address]Dr. Elba Anthony Calcium [Mass/Vol] 8.4 mg/dL Critically low 8.5-10.1 [facility] Comment on above: Performed By: #### B RIVET DRIVER, BMP ####[facility] Ckpwguavtl[address] [place], [place] [address]Dr. Elba Anthony Chloride [Moles/Vol] 96 mmol/L Critically low 98-107 [facility] Comment on above: Performed By: #### B RIVET DRIVER, BMP ####[facility] [address]niwtlokh[address] [place], [place] [address]Dr. Elba Anthony CO2 [Moles/Vol] 26.9 mmol/L Normal 21.0-32.0 [facility] Comment on above: Performed By: #### B RIVET DRIVER, BMP ####[facility] Qvbofiygeo[address] [place], [place] [address]Dr. Elba Anthony Creatinine [Mass/Vol] 2.83 mg/dL Critically high 0.70-1.30 [facility] Comment on above: Performed By: #### B RIVET DRIVER, BMP ####[facility] Scqsditzgz[address] [place], [place] [address]Dr. Elba Anthony EGFR-AF SOMALI 27 mL/min/1.73m2 Critically low >=60 [facility] Comment on above: Performed By: #### B RIVET DRIVER, BMP ####[facility] S[address]azypqkg[address] [place], [place] [address]Dr. Elba Anthony EGFR-NON AF SOMALI 22 mL/min/1.73m2 Critically low >=60 [facility] Comment on above: Performed By: #### B RIVET DRIVER, BMP ####[facility] Zpkahzhgbe7[address] [place], [place] [address]Dr. Elba Anthony Glucose [Mass/Vol] 118 mg/dL Critically high 74-106 [facility] Comment on above: Performed By: #### B RIVET DRIVER, BMP ####[facility] Pnkqcdulow8[address] [place], [place] [address]Dr. Elba Anthony Potassium [Moles/Vol] 4.7 mmol/L Normal 3.5-5.1 [facility] Comment on above: Performed By: #### B RIVET DRIVER, BMP ####[facility] [address]xjcofhqrh[address] [place], [place] [address]Dr. Elba Anthony Sodium [Moles/Vol] 135 mmol/L Critically low 136-145 Th [facility] Comment on above: Performed By: #### B RIVET DRIVER, BMP ####[facility] [address]abnphjrut[address] [place], [place] [address]Dr. Elba Anthony Urea nitrogen [Mass/Vol] 68.0 mg/dL Critically high 7.0-18.0 [facility] Comment on above: Performed By: #### B RIVET DRIVER, BMP ####[facility] Emtggwiwij[address] [place], [place] [address]Dr. Elba Anthony Urea nitrogen/Creatinine [Mass ratio] 24.0 mg/mg Normal [facility] Comment on above: Performed By: #### B RIVET DRIVER, BMP ####[facility] Tsuahkukmb[address] [place], [place] [address]Dr. Elba Anthony BNPon 04-02-2022 Natriuretic peptide B (Bld) [Mass/Vol] 23948.0 pg/mL Critically high <=900.0 [facility] Comment on above: Performed By: #### B RIVET DRIVER, BMP ####[facility] [address]xteuxycdr90[address] [place], [place] [address]Dr. Elba Anthony PROF CHEM 8 (BAS METB)on Anion gap [Moles/Vol] 9.7 mmol/L Normal [facility] Comment on above: Performed By: #### B RIVET DRIVER, BMP ####[facility] Ugkufdvaen[address] [place], [place] [address]Dr. Elba Anthony Calcium [Mass/Vol] 8.8 mg/dL Normal 8.5-10.1 [facility] Comment on above: Performed By: #### B RIVET DRIVER, BMP ####[facility] [address]xpugwlya[address] [place], [place] [address]Dr. Elba Anthony Chloride [Moles/Vol] 99 mmol/L Normal 98-107 [facility] Comment on above: Performed By: #### B RIVET DRIVER, BMP ####[facility] Unorwppjll[address] [place], [place] [address]Dr. Elba Anthony CO2 [Moles/Vol] 31.1 mmol/L Normal 21.0-32.0 The [facility] Comment on above: Performed By: #### B RIVET DRIVER, BMP ####[facility] Qgorzdiccc[address] [place], [place] [address]Dr. Elba Anthony Creatinine [Mass/Vol] 2.45 mg/dL Critically high 0.70-1.30 The [facility] Comment on above: Performed By: #### B RIVET DRIVER, BMP ####[facility] Josvyverxd38[address] [place], [place] [address]Dr. Elba Anthony EGFR-AF SOMALI 32 mL/min/1.73m2 Critically low >=60 The [facility] Comment on above: Performed By: #### B RIVET DRIVER, BMP ####[facility] Wpacufcyol67[address] [place], [place] [address]Dr. Elba Anthony EGFR-NON AF SOMALI 26 mL/min/1.73m2 Critically low >=60 The [facility] Comment on above: Performed By: #### B RIVET DRIVER, BMP ####[facility] Acaromizzt23[address] [place], [place] [address]Dr. Elba Anthony Glucose [Mass/Vol] 101 mg/dL Normal 74-106 The [facility] Comment on above: Performed By: #### B RIVET DRIVER, BMP ####[facility] Jmwouwcjvw[address] [place], [place] [address]Dr. Nereydasiobhan Anthony Potassium [Moles/Vol] 3.8 mmol/L Normal 3.5-5.1 The [facility] Comment on above: Performed By: #### B RIVET DRIVER, BMP ####[facility] Fvqoyruhsv[address] [place], [place] [address]Dr. Elba Anthony Sodium [Moles/Vol] 136 mmol/L Normal 136-145 The [facility] Comment on above: Performed By: #### B RIVET DRIVER, BMP ####[facility] Jraminhowe216[address] [place], [place] [address]Dr. Elba Anthony Urea nitrogen [Mass/Vol] 46.0 mg/dL Critically high 7.0-18.0 The [facility] Comment on above: Performed By: #### B RIVET DRIVER, BMP ####[facility] Opimnzddxn5812[address] [place], [place] [address]Dr. Elba Raj Urea nitrogen/Creatinine [Mass ratio] 18.8 mg/mg Normal The [facility] Comment on above: Performed By: #### B RIVET DRIVER, BMP ####[facility] Emgvgaiiaq1934[address] [place], [place] [address]Dr. Elba Raj CBC W MANUAL DIFFon 07-25-20 22 ANISOCYTOSIS 1+ Normal The [facility] Comment on above: Performed By: #### C BCMAN ####[facility] [address] [place] [address]Dr. Elba Anthony ATYPICAL LYMPH # 0.00 103/ul Normal The [facility] Comment on above: Performed By: #### C BCMAN ####[facility] Ucxdcyuaee[address] [place], [place] [address]Dr. Elba Anthony ATYPICAL LYMPH % 0 % Normal The [facility] Comment on above: Performed By: #### C BCMAN ####[facility] Nazherodrw3499[address] [place], [place] [address]Dr. Elba Anthony BAND # 0.4 103/ul Critically high 0.0-0.3 The [facility] Comment on above: Performed By: #### C BCMAN ####[facility] Fzmusndvto9[address] [place], [place] [address]Dr. Elba Anthony BAND % 4 % Normal 0-5 The [facility] Comment on above: Performed By: #### C BCVINCENT ####[facility] Uvyqsupngd2878[address] [place], [place] [address]Dr. Elba Anthony BASOM # 0.00 103/ul Normal 0.00-0.10 The [facility] Comment on above: Performed By: #### C BCVINCENT ####[facility] Pzwjfndnte4923[address] [place], [place] [address]Dr. Elba Anthony BASOM % 0.0 % Critically low 0.2-2.0 The [facility] Comment on above: Performed By: #### C BCVINCENT ####[facility] Kuqfdamdip3153[address] [place], [place] [address]Dr. Elba Anthony BLAST # 0.0 103/ul Normal The [facility] Comment on above: Performed By: #### C BCVINCENT ####[facility] Soolxivrfq1952[address] [place], [place] [address]Dr. Elba Anthony BLAST % 0 % Normal The [facility] Comment on above: Performed By: #### C BCVINCENT ####[facility] Inljsskbir798[address] [place], [place] [address]Dr. Elba Anthony CORRECTED WBC Normal 4.0-11.0 The [facility] Comment on above: Performed By: #### C BCMAN ####[facility] V[address]kdisn[address] [place] [id number]. Elba Anthony EOS # 0.00 103/ul Normal 0.00-0.70 The [facility] Comment on above: Performed By: #### C BCVINCENT ####[facility] Zhxtqvlqds9770 [place] [id number]. Elba Anhtony EOS% 0.0 % Critically low 0.9-7.0 The [facility] Comment on above: Performed By: #### C BCVINCENT ####[facility] Umahrdfowa8585 [place] [id number]. Elba Anthony HCT 31.3 % Critically low 42.0-54.0 The [facility] Comment on above: Performed By: #### C BCVINCENT ####[facility] Jkxkymmbfm0911[address] [place], [place] [address]Dr. Elba Anthony HGB 9.2 g/dl Critically low 14.0-18.0 The [facility] Comment on above: Performed By: #### C BCVINCENT ####[facility] Wpeyejnntb5238[address] [place], [place] [address]Dr. Elba Anthony HYPOCHROMASIA SLIGHT Normal The [facility] Comment on above: Performed By: #### C BCVINCENT ####[facility] Dmkafjwnnb34[address] [place], [place] [address]Dr. Elba Anthony LYMPHM # 0.32 103/ul Critically low 1.20-3.80 The [facility] Comment on above: Performed By: #### C BCVINCENT ####[facility] Xsx[address]ww[address] [place], [place] [address]Dr. Elba Anthony LYMPHM% 3.0 % Critically low 20.5-60.0 The [facility] Comment on above: Performed By: #### C BCVINCENT ####[facility] Gnrfdtbjps7358[address] [place], [place] [address]Dr. Elba Anthony MCH 23.2 pg Critically low 25.9-34.0 The [facility] Comment on above: Performed By: #### C BCIVNCENT ####[facility] Ozyieycjnn[address] [place], [place] [address]Dr. Elba Anthony MCHC 29.4 g/dl Critically low 29.9-35.2 The [facility] Comment on above: Performed By: #### C ADALGISA ####[facility] Pzerdmgmvo[address] [place] [address]Dr. Elba Anthony MCV 79.0 fL Critically low 80.0-94.0 The [facility] Comment on above: Performed By: #### C ADALGISA ####[facility] Uhsjoafmpt5[address] [place] [id number]. Elba Anthony METAMYELOCYTE # 0.1 103/ul Normal The [facility] Comment on above: Performed By: #### C ADALGISA ####[facility] Tscomayaen9901[address] [place], [place] [address]Dr. Elba Anthony METAMYELOCYTE % 1 % Normal The [facility] Comment on above: Performed By: #### C ADALGISA ####[facility] Emeeugqeew4[address] [place], [place] [address]Dr. Elba Anthony MICROCYTOSIS SLIGHT Normal The [facility] Comment on above: Performed By: #### C ADALGISA ####[facility] Lucfgwtetg033[address] [place], [place] [address]Dr. Elba Anthony MONOM# 0.32 103/ul Normal 0.30-0.80 The [facility] Comment on above: Performed By: #### C ADALGISA ####[facility] Sbqfeemuoq[address] [place], [place] [address]Dr. Elba Anthony MONOM% 3.0 % Normal 1.7-12.0 The [facility] Comment on above: Performed By: #### C ADALGISA ####[facility] Jffxpvyvuv27[address] [place], [place] [address]Dr. Elba Anthony MPV 9.9 fL Normal 9.5-13.5 The [facility] Comment on above: Performed By: #### C ADALGISA ####[facility] Abeitlboqa[address] [place], [place] [address]Dr. Elba Anthony MYELOCYTE # 0.0 103/ul Normal The [facility] Comment on above: Performed By: #### C ADALGISA ####[facility] Ofzrabebta90[address] [place], [place] [address]Dr. Elba Anthony MYELOCYTE % 0 % Normal The [facility] Comment on above: Performed By: #### C ADALGISA ####[facility] Tgedtegcqu[address]2 [place] [id number]. Elba Anthony NRBC 0 Normal The [facility] Comment on above: Performed By: #### C ADALGISA ####[facility] Oabibkirzo43[address] [place] [id number]. Elba Anthony PLT 167 103/ul Normal 150-450 The [facility] Comment on above: Performed By: #### C ADALGISA ####[facility] Avpxjufjqs0960 [place] [id number]. Elba Anthony RBC 3.96 106/ul Critically low 4.70-6.10 The [facility] Comment on above: Performed By: #### C ADALGISA ####[facility] Yjygrabysp4894 [place] [id number]. Elba Anthony RDW 19.8 % Critically high 11.0-15.0 [facility] Comment on above: Performed By: #### C ADALGISA ####[facility] Jahepjmzjo3159 [place] [id number]. Elba Anthony SEG # 9.52 103/ul Critically high 1.40-6.50 [facility] Comment on above: Performed By: #### C ADALGISA ####[facility] Cdykfzgnkr6548 [place] [id number]. Elba Anthony SEG % 89.0 % Critically high 43.0-75.0 The [facility] Comment on above: Performed By: #### C ADALGISA ####[facility] J[address]csunak22[address] [place] [id number]. Elba Anthony WBC 10.7 103/ul Normal 4.0-11.0 The [facility] Comment on above: Performed By: #### C ADALGISA ####[facility] Flvvcetsvq8998 [place] [id number]. Elba Anthony CT CSPINE WO CONon CT CSPINE WO CON Normal The [facility] CT HEAD WO CONon 04-01-2022 CT HEAD WO CON Normal The [facility] PROF 14(COMP METB)on 022 Albumin [Mass/Vol] 2.8 g/dL Critically low 3.4-5.0 Th e [facility] Comment on above: Performed By: #### C MP ####[facility] Gyytjyxfyw[address] [place] [address]Dr. Elba Anthony Albumin/Globulin [Mass ratio] 0.6 {ratio} Normal [facility] Comment on above: Performed By: #### C MP ####[facility] Kfmkjeeduy[address] [place] [address]Dr. Elba Anthony ALP [Catalytic activity/Vol] 81 U/L Normal 46-116 [facility] Comment on above: Performed By: #### C MP ####[facility] Xzhsgmvqll8462 [place] [address]Dr. Elba Anthony ALT [Catalytic activity/Vol] 15 U/L Critically low 16-63 [facility] Comment on above: Performed By: #### C MP ####[facility] Zrfusmcfbx[address] [place], [place] [address]Dr. Elba Anthony Anion gap [Moles/Vol] 9.2 mmol/L Normal [facility] Comment on above: Performed By: #### C MP ####[facility] Jeuzqjnget[address] [place], [place] [address]Dr. Elba Anthony AST [Catalytic activity/Vol] 21 U/L Normal 15-37 [facility] Comment on above: Performed By: #### C MP ####[facility] Ogwiloailh[address] [place] [address]Dr. Elba Anthony Bilirubin [Mass/Vol] 1.7 mg/dL Critically high 0.2-1.0 [facility] Comment on above: Performed By: #### C MP ####[facility] Ycchhjuboa[address] [place], [place] [address]Dr. Elba Anthony Calcium [Mass/Vol] 9.0 mg/dL Normal 8.5-10.1 The [facility] Comment on above: Performed By: #### C MP ####[facility] Lubevnnhtg[address] [place] [address]Dr. Elba Anthony Chloride [Moles/Vol] 99 mmol/L Normal 98-107 The [facility] Comment on above: Performed By: #### C MP ####[facility] Kgqpuvvsgf42[address] [place] [address]Dr. Elba Anthony CO2 [Moles/Vol] 30.7 mmol/L Normal 21.0-32.0 [facility] Comment on above: Performed By: #### C MP ####[facility] Owctqukagz[address] [place], [place] [address]Dr. Elba Raj Creatinine [Mass/Vol] 2.60 mg/dL Critically high 0.70-1.30 [facility] Comment on above: Performed By: #### C MP ####[facility] Gougtkcxna[address] [place], [place] [address]Dr. Elba Raj EGFR-AF SOMALI 30 mL/min/1.73m2 Critically low >=60 [facility] Comment on above: Performed By: #### C MP ####[facility] Kobrnpyfrj5962[address] [place], [place] [address]Dr. Elba Anthony EGFR-NON AF SOMALI 25 mL/min/1.73m2 Critically low >=60 The [facility] Comment on above: Performed By: #### C MP ####[facility] Gzchdzyjkf[address] [place], [place] [address]Dr. Elba Raj Globulin (S) [Mass/Vol] 4.4 g/dL Normal [facility] Comment on above: Performed By: #### C MP ####[facility] Klnpnxvtjd1997[address] [place], [place] [address]Dr. Elba Raj Glucose [Mass/Vol] 130 mg/dL Critically high 74-106 [facility] Comment on above: Performed By: #### C MP ####[facility] Zitwgakqcn2764[address] [place], [place] [address]Dr. Elba Raj Potassium [Moles/Vol] 3.9 mmol/L Normal 3.5-5.1 The [facility] Comment on above: Performed By: #### C MP ####[facility] O[address]atoftkki[address] [place], [place] [address]Dr. Elba Anthony Protein [Mass/Vol] 7.2 g/dL Normal 6.4-8.2 The [facility] Comment on above: Performed By: #### C MP ####[facility] Hhdoigywnr[address] [place] [address]Dr. Elba Anthony Sodium [Moles/Vol] 135 mmol/L Critically low 136-145 Th e [facility] Comment on above: Performed By: #### C MP ####[facility] Umdrdgwpxq6967[address] [place], [place] [address]Dr. Elba Anthony Urea nitrogen [Mass/Vol] 41.0 mg/dL Critically high 7.0-18.0 The [facility] Comment on above: Performed By: #### C MP ####[facility] Bysakemayv11[address] [place], [place] [address]Dr. Elba Anthony Urea nitrogen/Creatinine [Mass ratio] 15.8 mg/mg Normal The [facility] Comment on above: Performed By: #### C MP ####[facility] Gxlzkdrrsm6946[address] [place], [place] [address]Dr. Elba Anthony XR CHEST 1 Von 04-01-2022 XR CHEST 1 V Normal [facility] BNPon 01-07-2022 Natriuretic peptide B (Bld) [Mass/Vol] 9964.0 pg/mL Critically high <=900.0 The [facility] Comment on above: Performed By: #### C MP, BNP ####[facility] Qstnnxgvhi[address] [place], [place] [address]Dr. Elba Atnhony CBC W MANUAL DIFFon 01-08-20 22 ATYPICAL LYMPH # Normal The [facility] Comment on above: Performed By: #### C ADALGISA ####[facility] Szekqodbxs[address] [place], [place] [address]Dr. Elba Anthony ATYPICAL LYMPH % Normal The [facility] Comment on above: Performed By: #### C ADALGISA ####[facility] Baozciuqoo[address] [place], [place] [address]Dr. Elba Anthony BAND # 0.1 103/ul Normal 0.0-0.3 The [facility] Comment on above: Performed By: #### C ADALGISA ####[facility] Hucyfcbkub[address] [place] [id number]. Elba Anthony BAND % 1 % Normal 0-5 The [facility] Comment on above: Performed By: #### C BCVINCENT ####[facility] Znzrjnkdjm1907 [place] [id number]. Elba Anthony BASOM # 0.00 103/ul Normal 0.00-0.10 [facility] Comment on above: Performed By: #### C BCVINCENT ####[facility] Wvvvmmpmju6342 [place] [address]Dr. Elba Anthony BASOM % 0.0 % Critically low 0.2-2.0 The [facility] Comment on above: Performed By: #### C ADALGISA ####[facility] Ysehhqbude[address] [place], [place] [address]Dr. Elba Anthony BLAST # Normal [facility] Comment on above: Performed By: #### C BCVINCENT ####[facility] Ffrhwbocui[address] [place], [place] [address]Dr. Elba Anthony BLAST % Normal The [facility] Comment on above: Performed By: #### C ADALGISA ####[facility] Eeviyaehyw[address] [place], [place] [address]Dr. Elba Anthony CORRECTED WBC Normal 4.0-11.0 [facility] Comment on above: Performed By: #### C BCVINCENT ####[facility] Spzzdircnt15[address] [place] [address]Dr. Elba Anthony EOS # 0.07 103/ul Normal 0.00-0.70 The [facility] Comment on above: Performed By: #### C BCVINCENT ####[facility] Leleezjejc[address] [place] [address]Dr. Elba Anthony EOS% 1.0 % Normal 0.9-7.0 The [facility] Comment on above: Performed By: #### C BCVINCENT ####[facility] [address]mkfwnaet[address] [place], [place] [address]Dr. Elba Anthony HCT 33.4 % Critically low 42.0-54.0 [facility] Comment on above: Performed By: #### Abdoul DIANA ####[facility] Nrukp[address]aqw8[address] [place], [place] [address]Zk. Elba Anthony HGB 9.8 g/dl Critically low 14.0-18.0 [facility] Comment on above: Performed By: #### Abdoul DIANA ####[facility] Tqyqdlweuj7972 [place], [place] [address]Ll. Elba Anthony LYMPHM # 0.44 103/ul Critically low 1.20-3.80 [facility] Comment on above: Performed By: #### Abdoul DIANA ####[facility] Xubqvbmllz1640 [place], [place] [address]Cn. Elba Anthony LYMPHM% 6.0 % Critically low 20.5-60.0 [facility] Comment on above: Performed By: #### Abdoul DIANA ####[facility] Febouvhzyx5312 [place], [place] [address]Ig. Elba Anthony MCH 24.1 pg Critically low 25.9-34.0 [facility] Comment on above: Performed By: #### Abdoul DIANA ####[facility] Tzfedugpbp1329 [place], [place] [address]Sa. Elba Anthony MCHC 29.3 g/dl Critically low 29.9-35.2 [facility] Comment on above: Performed By: #### Abdoul DIANA ####[facility] Nzpbtqpstn9146 [place], [place] [address]Ho. Elba Anthony MCV 82.1 fL Normal 80.0-94.0 [facility] Comment on above: Performed By: #### Abdoul DIANA ####[facility] Nbwdmsrusg4399 [place], [place] [address]Jz. Elba Anthony METAMYELOCYTE # Normal [facility] Comment on above: Performed By: #### Abdoul DIANA ####[facility] Ajmiixynrg6387 [place], [place] [address]Mq. Elba Anthony METAMYELOCYTE % Normal [facility] Comment on above: Performed By: #### Abdoul DIANA ####[facility] Sggwzlkcex2585 [place] [id number]. Elba Anthony MONOM# 0.52 103/ul Normal 0.30-0.80 [facility] Comment on above: Performed By: #### C ADALGISA ####[facility] Qntixcacyj6793 [place] [address]Dr. Elba Anthony MONOM% 7.0 % Normal 1.7-12.0 [facility] Comment on above: Performed By: #### C ADALGISA ####[facility] Ymiboavinf0221 [place] [address]Dr. Elba Anthony MPV 9.5 fL Normal 9.5-13.5 [facility] Comment on above: Performed By: #### C ADALGISA ####[facility] Ilhhtsdzfp5599 [place] [id number]. Elba Anthony MYELOCYTE # Normal [facility] Comment on above: Performed By: #### C ADALGISA ####[facility] Mkjdyrjfze2034 [place] [id number]. Elba Anthony MYELOCYTE % Normal [facility] Comment on above: Performed By: #### C ADALGISA ####[facility] Ltbnqoeinq0455 [place] [id number]. Elba Anthony NRBC Normal [facility] Comment on above: Performed By: #### C ADALGISA ####[facility] Errahremwx1503 [place] [id number]. Elba Anthony PLT 247 103/ul Normal 150-450 [facility] Comment on above: Performed By: #### C ADALGISA ####[facility] Htgtojypwh2881 [place] [address]Dr. Elba Anthony RBC 4.07 106/ul Critically low 4.70-6.10 [facility] Comment on above: Performed By: #### C ADALGISA ####[facility] Mbfbefhtli6795 [place] [id number]. Elba Anthony RDW 18.7 % Critically high 11.0-15.0 [facility] Comment on above: Performed By: #### C ADALGISA ####[facility] C[address] [place], [place] [address]Dr. Elba Anthony SEG # 6.29 103/ul Normal 1.40-6.50 [facility] Comment on above: Performed By: #### C ADALGISA ####[facility] Exhhmcncnn[address] [place], [place] [address]Dr. Elba Anthony SEG % 85.0 % Critically high 43.0-75.0 [facility] Comment on above: Performed By: #### C ADALGISA ####[facility] Gkskvslpsi17[address] [place], [place] [address]Dr. Elba Anthony WBC 7.4 103/ul Normal 4.0-11.0 [facility] Comment on above: Performed By: #### C ADALGISA ####[facility] B[address]fvtgvri4[address] [place], [place] [address]Dr. Elba Anthony ER URINE PROFILEon 2 Bilirubin Ql (U) Negative Normal NEGATIVE The [facility] Comment on above: Performed By: #### E RUR ####[facility] Dfytyhycay74[address] [place], [place] [address]Dr. Elba Raj Clarity (U) CLEAR Normal CLEAR [facility] Comment on above: Performed By: #### E RUR ####[facility] [address]irytbkvv[address] [place], [place] [address]Dr. Elba Raj Color (U) LT. YELLOW Normal YELLOW [facility] Comment on above: Performed By: #### E RUR ####[facility] [facility] Aqhuogpsfi[address] [place], [place] [address]Dr. Nereydasiobhan Anthony ERUAHD A micrscopic examina tion will be performed if indicated. Normal [facility] Comment on above: Performed By: #### E RUR ####[facility] Jlihbdqmvf[address] [place], [place] [address]Dr. Elba Anthony Glucose Ql (U) Negative Normal NEGATIVE [facility] Comment on above: Performed By: #### E RUR ####[facility] Bgsmwyqioy[address] [place], [place] [address]Dr. Elba Anthony Hemoglobin Ql (U) Negative Normal NEGATIVE [facility] Comment on above: Performed By: #### E RUR ####[facility] Rzcdzskkyn[address] [place] [address]Dr. Nereydasiobhan Raj Ketones Ql (U) Negative Normal NEGATIVE [facility] Comment on above: Performed By: #### E RUR ####[facility] Zjurgizsym0[address] [place], [place] [address]Dr. Nereydasiobhan Anthony LEUKOCYTES Negative Normal NEGATIVE [facility] Comment on above: Performed By: #### E RUR ####[facility] Tuegpachha7417[address] [place], [place] [address]Dr. Nereydasiobhan Anthony Nitrite Ql (U) Negative Normal NEGATIVE [facility] Comment on above: Performed By: #### E RUR ####[facility] Vklzbkkmiu3683[address] [place], [place] [address]Dr. Elba Anthony pH (U) 5.0 [pH] Normal 5-9 [facility] Comment on above: Performed By: #### E RUR ####[facility] Iodnsqpfpu0787[address] [place], [place] [address]Dr. Elba Anthony SPEC GRAVITY <=1.005 Abnormal 1.005-<=1.[address] [place] [address] Comment on above: Performed By: #### E RUR ####[facility] Jqylwlscev020[address] [place], [place] [address]Dr. Elba nAthony UA PROTEIN Negative Normal NEGATIVE/ TRACE [facility] Comment on above: Performed By: #### E RUR ####[facility] Xrkllsovvp4[address] [place], [place] [address]Dr. Elba Anthony UR MICRO IND NOT INDICATED Normal [facility] Comment on above: Performed By: #### E RUR ####[facility] Snnojcxhbv5[address] [place], [place] [address]Dr. Elba Anthony Urobilinogen Qn (U) 0.2 {Caden'U}/dL Normal 0.2 - 1. 0 [facility] Comment on above: Performed By: #### E RUR ####[facility] Pxbrajahtz16[address] [place], [place] [address]Dr. Elba Anthony PROF 14(COMP METB)on 022 Albumin [Mass/Vol] 2.9 g/dL Critically low 3.4-5.0 [facility] Comment on above: Performed By: #### C MP, BNP ####[facility] Bpgxmkbwpp[address] [place] [address]Dr. Elba Anthony Albumin/Globulin [Mass ratio] 0.6 {ratio} Normal [facility] Comment on above: Performed By: #### C MP, BNP ####[facility] Rwxnlgqgjp3239 [place] [address]Dr. Elba Anthony ALP [Catalytic activity/Vol] 105 U/L Normal 46-116 [facility] Comment on above: Performed By: #### C MP, BNP ####[facility] Pzbbnvvqra29[address] [place], [place] [address]Dr. Elba Anthony ALT [Catalytic activity/Vol] 27 U/L Normal 16-63 [facility] Comment on above: Performed By: #### C MP, BNP ####[facility] Rowaxphcnj022[address] [place], [place] [address]Dr. Elba Anthony Anion gap [Moles/Vol] 10.7 mmol/L Normal Th [facility] Comment on above: Performed By: #### C MP, BNP ####[facility] Rpehymlnsc6042[address] [place], [place] [address]Dr. Elba Anthony AST [Catalytic activity/Vol] 20 U/L Normal 15-37 [facility] Comment on above: Performed By: #### C MP, BNP ####[facility] Blbkibhwcs[address] [place], [place] [address]Dr. Elba Anthony Bilirubin [Mass/Vol] 1.1 mg/dL Critically high 0.2-1.0 [facility] Comment on above: Performed By: #### C MP, BNP ####[facility] Yphcziflqm088[address] [place], [place] [address]Dr. Elba Anthony Calcium [Mass/Vol] 8.2 mg/dL Critically low 8.5-10.1 Th [facility] Comment on above: Performed By: #### C MP, BNP ####[facility] Qqvrqizzzh18[address] [place], [place] [address]Dr. Elba Anthony Chloride [Moles/Vol] 99 mmol/L Normal 98-107 [facility] Comment on above: Performed By: #### C MP, BNP ####[facility] Wtvdfnpclq2955[address] [place], [place] [address]Dr. Elba Anthony CO2 [Moles/Vol] 28.6 mmol/L Normal 21.0-32.0 [facility] Comment on above: Performed By: #### C MP, BNP ####[facility] Tzzeshtygq4571[address] [place], [place] [address]Dr. Elba Anthony Creatinine [Mass/Vol] 2.06 mg/dL Critically high 0.70-1.30 [facility] Comment on above: Performed By: #### C MP, BNP ####[facility] Leyuiudifj9[address] [place], [place] [address]Dr. Elba Anthony EGFR-AF SOMALI 39 mL/min/1.73m2 Critically low >=60 [facility] Comment on above: Performed By: #### C MP, BNP ####[facility] Ozxiasqzkv1968[address] [place], [place] [address]Dr. Elba Anthony EGFR-NON AF SOMALI 32 mL/min/1.73m2 Critically low >=60 [facility] Comment on above: Performed By: #### C MP, BNP ####[facility] Npzbrwlvmh0987[address] [place], [place] [address]Dr. Elba Anthony Globulin (S) [Mass/Vol] 4.6 g/dL Normal [facility] Comment on above: Performed By: #### C MP, BNP ####[facility] Ycudleswus[address] [place], [place] [address]Dr. Elba Anthony Glucose [Mass/Vol] 113 mg/dL Critically high 74-106 [facility] Comment on above: Performed By: #### C MP, BNP ####[facility] Jndsnybehu[address] [place], [place] [address]Dr. Elba Anthony Potassium [Moles/Vol] 4.3 mmol/L Normal 3.5-5.1 [facility] Comment on above: Performed By: #### C MP, BNP ####[facility] Cifndjuftf[address] [place] [address]Dr. Elba Anthony Protein [Mass/Vol] 7.5 g/dL Normal 6.1-8.2 [facility] Comment on above: Performed By: #### C MP, BNP ####[facility] Hygffmfwyw4865 [place] [address]Dr. Elba Anthony Sodium [Moles/Vol] 134 mmol/L Critically low 136-145 Th [facility] Comment on above: Performed By: #### C MP, BNP ####[facility] Mbjhtlctuz4335[address] [place], [place] [address]Dr. Elba Anthony Urea nitrogen [Mass/Vol] 48.0 mg/dL Critically high 7.0-18.0 [facility] Comment on above: Performed By: #### C MP, BNP ####[facility] Rbmqkbjrgf3189[address] [place], [place] [address]Dr. Elba Anthony Urea nitrogen/Creatinine [Mass ratio] 23.3 mg/mg Normal [facility] Comment on above: Performed By: #### C MP, BNP ####[facility] Dcwmfcainv629[address] [place], [place] [address]Dr. Elba Anthony US ARLIN DOP LEG LTon 01-08-20 22 US ARLIN DOP LEG LT Normal [facility] XR CHEST 1 Von 01-07-2022 XR CHEST 1 V Normal [facility] CBC AUTO DIFFon 12-17-2021 BASO # 0.0 103/ul Normal 0.0-0.1 [facility] Comment on above: Performed By: #### C BC ####[facility] Pvsliwbgyk3773[address] [place], [place] [address]Dr. Elba Anthony Basophils/100 WBC (Bld) 0.1 % Critically low 0.2-2.0 [facility] Comment on above: Performed By: #### C BC ####[facility] Hoeqpnfzti08[address] [place], [place] [address]Dr. Elba Anthony EO # 0.1 103/ul Normal 0.0-0.7 [facility] Comment on above: Performed By: #### C BC ####[facility] T[address] [place], [place] [address]Dr. Elba Anthony Eosinophils/100 WBC (Bld) 1.2 % Normal 0.9-7.0 [facility] Comment on above: Performed By: #### C BC ####[facility] Oecsttcdqz44[address] [place], [place] [address]Dr. Elba Anthony Erythrocyte distribution width (RBC) [Ratio] 18.6 % Critically high 11.0-15.0 [facility] Comment on above: Performed By: #### C BC ####[facility] Weybntcumi[address] [place], [place] [address]Dr. Elba Anthony Hematocrit (Bld) [Volume fraction] 29.8 % Critically low 42.0-54.0 [facility] Comment on above: Performed By: #### C BC ####[facility] Mxyfuqsxzm0[address] [place], [place] [address]Dr. Elba Anthony Hemoglobin (Bld) [Mass/Vol] 9.0 g/dL Critically low 14.0-18.0 [facility] Comment on above: Performed By: #### C BC ####[facility] Mfaapwxigx06[address] [place], [place] [address]Dr. Elba Anthony IG # 0.05 10e3/ul Critically high 0.00-0.03 [facility] Comment on above: Performed By: #### C BC ####[facility] Hvjawcnuhb0[address] [place], [place] [address]Dr. Elba Anthony IG % 0.6 % Critically high 0.0-0.5 [facility] Comment on above: Performed By: #### C BC ####[facility] Dffggtptkp8[address] [place], [place] [address]Dr. Elba Anthony LYMPH # 0.4 103/ul Critically low 1.2-3.8 [facility] Comment on above: Performed By: #### C BC ####[facility] Gjofudhrpu[address] [place], [place] [address]Dr. Elba Anthony Lymphocytes/100 WBC (Bld) 4.0 % Critically low 20.5-60.0 [facility] Comment on above: Performed By: #### C BC ####[facility] Znrolncnqh5[address] [place] [id number]. Elba Anthony MANUAL DIFF REQ NO Normal [facility] Comment on above: Performed By: #### C BC ####[facility] Rbouzgtojn9313 [place] [id number]. Elba Anthony MCH (RBC) [Entitic mass] 25.2 pg Critically low 25.9-34.0 [facility] Comment on above: Performed By: #### C BC ####[facility] Vtlmaurama[address] [place] [address]Dr. Elba Anthony MCHC (RBC) [Mass/Vol] 30.2 g/dL Normal 29.9-35.2 [facility] Comment on above: Performed By: #### C BC ####[facility] Ytrihykahs[address] [place] [address]Dr. Elba Raj MCV (RBC) [Entitic vol] 83.5 fL Normal 80.0-94.0 [facility] Comment on above: Performed By: #### C BC ####[facility] Uocgrbgyeg[address] [place] [id number]. Elba Raj MONO # 0.9 103/ul Critically high 0.3-0.8 [facility] Comment on above: Performed By: #### C BC ####[facility] Dtdqslnixo35[address] [place] [address]Dr. Nereydasiobhan Anthony Monocytes/100 WBC (Bld) 9.7 % Normal 1.7-12.0 [facility] Comment on above: Performed By: #### C BC ####[facility] Fglutipsxk6721 [place] [id number]. Elba Anthony NEUT # 7.6 103/ul Critically high 1.4-6.5 [facility] Comment on above: Performed By: #### C BC ####[facility] Kfpxgaueml3094 [place] [address]Dr. Elba Anthony Neutrophils/100 WBC (Bld) 84.4 % Critically high 43.0-75.0 [facility] Comment on above: Performed By: #### C BC ####[facility] Yotprbtfqo8400 [place] [id number]. Nereydasiobhan Raj Platelet mean volume (Bld) [Entitic vol] 10.0 fL Normal 9.5-13.5 [facility] Comment on above: Performed By: #### C BC ####[facility] Fhasgcudma5246 [place] [id number]. Elba Anthony PLT 154 103/ul Normal 150-450 [facility] Comment on above: Performed By: #### C BC ####[facility] Mamxtgiuvu8475 [place] [id number]. Elba Anthony RBC 3.57 106/ul Critically low 4.70-6.10 [facility] Comment on above: Performed By: #### C BC ####[facility] Ekgffgsaey7635 [place] [address]Dr. Elba Anthony WBC 9.0 103/ul Normal 4.0-11.0 [facility] Comment on above: Performed By: #### C BC ####[facility] Twxmnqtmtx05[address] [place] [address]Dr. Elba Anthony PROF 14(COMP METB)on 022 Albumin [Mass/Vol] 2.3 g/dL Critically low 3.4-5.0 [facility] Comment on above: Performed By: #### C MP ####[facility] Apgmlycyla0048 [place] [address]Dr. Elba Anthony Albumin/Globulin [Mass ratio] 0.6 {ratio} Normal [facility] Comment on above: Performed By: #### C MP ####[facility] Qgwhxlkwjd8058 [place] [address]Dr. Elba Anthony ALP [Catalytic activity/Vol] 75 U/L Normal 46-116 [facility] Comment on above: Performed By: #### C MP ####[facility] Nzujoodtuj6[address] [place] [address]Dr. Elba Anthony ALT [Catalytic activity/Vol] 30 U/L Normal 16-63 [facility] Comment on above: Performed By: #### C MP ####[facility] Yzigxdzduo0952 [place] [id number]. Elba Anthony Anion gap [Moles/Vol] 11.6 mmol/L Normal [facility] Comment on above: Performed By: #### C MP ####[facility] Gbadejmmru[address] [place] [address]Dr. Elba Anthony AST [Catalytic activity/Vol] 26 U/L Normal 15-37 [facility] Comment on above: Performed By: #### C MP ####[facility] Pfffcyfyvi0942 [place] [address]Dr. Elba Anthony Bilirubin [Mass/Vol] 0.9 mg/dL Normal 0.2-1.3 [facility] Comment on above: Performed By: #### C MP ####[facility] Ntedhyxurw[address] [place], [place] [address]Dr. Elba Anthony Calcium [Mass/Vol] 8.1 mg/dL Critically low 8.5-10.1 [facility] Comment on above: Performed By: #### C MP ####[facility] Ueelmsvwst[address] [place], [place] [address]Dr. Elba Anthony Chloride [Moles/Vol] 101 mmol/L Normal 98-107 [facility] Comment on above: Performed By: #### C MP ####[facility] Wsycjcxxiz7[address] [place], [place] [address]Dr. Elba Anthony CO2 [Moles/Vol] 26.2 mmol/L Normal 22.0-30.0 [facility] Comment on above: Performed By: #### C MP ####[facility] Rnrpmivbuh[address] [place], [place] [address]Dr. Elba Anthony Creatinine [Mass/Vol] 2.26 mg/dL Critically high 0.66-1.25 [facility] Comment on above: Performed By: #### C MP ####[facility] Ziunkaxmgf78[address] [place], [place] [address]Dr. Elba Anthony EGFR-AF SOMALI 35 mL/min/1.73m2 Critically low >=60 [facility] Comment on above: Performed By: #### C MP ####[facility] Awfpqngjyu4398 [place] [phone]. Elba Anthony EGFR-NON AF SOMALI 29 mL/min/1.73m2 Critically low >=60 [facility] Comment on above: Performed By: #### C MP ####[facility] Cpxymrwqpd9914 [place] [phone]. Elba Anthony Globulin (S) [Mass/Vol] 4.1 g/dL Normal [facility] Comment on above: Performed By: #### C MP ####[facility] Xwruekgxzf5187 [place] [phone]. Elba Anthony Glucose [Mass/Vol] 110 mg/dL Critically high 74-106 [facility] Comment on above: Performed By: #### C MP ####[facility] Hfmzhgwjbb6146 [place] [phone]. Elba Anthony Potassium [Moles/Vol] 3.8 mmol/L Normal 3.4-5.0 [facility] Comment on above: Performed By: #### C MP ####[facility] Rytuzslgep7975 [place] [phone]. Elba Anthony Protein [Mass/Vol] 6.4 g/dL Normal 6.1-8.2 [facility] Comment on above: Performed By: #### C MP ####[facility] Niyxmgdqhy8574 [place] [phone]. Elba Anthony Sodium [Moles/Vol] 135 mmol/L Critically low 137-145 Th [facility] Comment on above: Performed By: #### C MP ####[facility] Chsgnvpdxs4424 [place] [phone]. Elba Anthony Urea nitrogen [Mass/Vol] 49.0 mg/dL Critically high 7.0-18.0 [facility] Comment on above: Performed By: #### C MP ####[facility] Qklfqunrqq7526 [place] [phone]. Elba Anthony Urea nitrogen/Creatinine [Mass ratio] 21.7 mg/mg Normal [facility] Comment on above: Performed By: #### C MP ####[facility] Anprvfguer4[address] [place] [address]Dr. Elba Anthony BLOOD CULTURE ID/SENSon 12-07 Aerobe ID + Suscept Final report Abnormal [facility] Comment on above: Performed By: #### C XPOSBL ####[facility] Bmjgrnetxn[address] [place], [place] [address]Dr. Elba Anthony Antimicrobial Susceptibility Comment Normal [facility] Comment on above: Result Comment: S = Susceptible; I = Intermediate; R = Resistant P = Positive; N = Negative MICS are expressed in micrograms per mL Antibiotic RSLT#1 RSLT#2 RSLT#3 RSLT#4Amikacin SCefepime SCeftazidime SCiprofloxacin SGentamicin SImipenem SLevofloxacin SMeropenem SPiperacillin STicarcillin STobramycin S Performed By: #### C XPOSBL ####[facility] Olspzxpfwm035[address] [place], [place] [address]Dr. Elba Anthony Result 1 Comment Abnormal [facility] Comment on above: Result Comment: Pseu domonas aeruginosaReceived aerobic bottle only. Performed By: #### C XPOSBL ####[facility] Vankvwgudv[address] [place], [place] [address]Dr. Elba Anthony Result Comment: Pseu domonas aeruginosaReceived anaerobic bottle only. CBC AUTO DIFFon 12-16-2021 BASO # 0.0 103/ul Normal 0.0-0.1 [facility] Comment on above: Performed By: #### C BC ####[facility] Rllsnxiqlx4[address] [place], [place] [address]Dr. Elba Anthony Basophils/100 WBC (Bld) 0.3 % Normal 0.2-2.0 [facility] Comment on above: Performed By: #### C BC ####[facility] Vxhkcdtpul3363[address] [place], [place] [address]Dr. Elba Anthony EO # 0.1 103/ul Normal 0.0-0.7 [facility] Comment on above: Performed By: #### C BC ####[facility] Pjoajjnroc[address] [place], [place] [address]Dr. Elba Anthony Eosinophils/100 WBC (Bld) 1.7 % Normal 0.9-7.0 [facility] Comment on above: Performed By: #### C BC ####[facility] Bwdfarfzvu2794[address] [place], [place] [address]Dr. Elba Anthony Erythrocyte distribution width (RBC) [Ratio] 18.8 % Critically high 11.0-15.0 [facility] Comment on above: Performed By: #### C BC ####[facility] Jipeqartlm4499[address] [place], [place] [address]Dr. Elba Anthony Hematocrit (Bld) [Volume fraction] 28.8 % Critically low 42.0-54.0 [facility] Comment on above: Performed By: #### C BC ####[facility] Ybxyatjzqf[address] [place], [place] [address]Dr. Elba Anthony Hemoglobin (Bld) [Mass/Vol] 8.6 g/dL Critically low 14.0-18.0 [facility] Comment on above: Performed By: #### C BC ####[facility] Ixkzcjzteg[address] [place], [place] [address]Dr. Elba Anthony IG # 0.05 10e3/ul Critically high 0.00-0.03 [facility] Comment on above: Performed By: #### C BC ####[facility] Uoabgyifha88[address] [place], [place] [address]Dr. Elba Anthony IG % 0.7 % Critically high 0.0-0.5 [facility] Comment on above: Performed By: #### C BC ####[facility] Davalgavvb[address] [place], [place] [address]Dr. Elba Anthony LYMPH # 0.4 103/ul Critically low 1.2-3.8 [facility] Comment on above: Performed By: #### C BC ####[facility] Esgtarlkkl[address]18[address] [place], [place] [address]Dr. Elba Anthony Lymphocytes/100 WBC (Bld) 5.4 % Critically low 20.5-60.0 [facility] Comment on above: Performed By: #### C BC ####[facility] Ebrvtakvlb[address] [place], [place] [address]Dr. Nereydasiobhan Anthony MANUAL DIFF REQ NO Normal [facility] Comment on above: Performed By: #### C BC ####[facility] Tbomxpqggx0317 [place] [address]Dr. Elba Raj MCH (RBC) [Entitic mass] 25.0 pg Critically low 25.9-34.0 [facility] Comment on above: Performed By: #### C BC ####[facility] Falkplpppz6042 [place] [address]Dr. Elba Raj MCHC (RBC) [Mass/Vol] 29.9 g/dL Normal 29.9-35.2 [facility] Comment on above: Performed By: #### C BC ####[facility] Dnykzmwfzx2534 [place] [address]Dr. Elba Anthony MCV (RBC) [Entitic vol] 83.7 fL Normal 80.0-94.0 [facility] Comment on above: Performed By: #### C BC ####[facility] Fbrvsudvea4160 [place] [address]Dr. Elba Anthony MONO # 0.7 103/ul Normal 0.3-0.8 [facility] Comment on above: Performed By: #### C BC ####[facility] Ntupfkzteg0781 [place] [address]Dr. Elba Anthony Monocytes/100 WBC (Bld) 10.2 % Normal 1.7-12.0 [facility] Comment on above: Performed By: #### C BC ####[facility] Izjbwvvggq0590 [place] [address]Dr. Elba Anthony NEUT # 5.9 103/ul Normal 1.4-6.5 [facility] Comment on above: Performed By: #### C BC ####[facility] Idtxgsqqpf9591 [place] [address]Dr. Elba Anthony Neutrophils/100 WBC (Bld) 81.7 % Critically high 43.0-75.0 [facility] Comment on above: Performed By: #### C BC ####[facility] Rwszttav[address] [place], [place] [address]Dr. Elba Anthony Platelet mean volume (Bld) [Entitic vol] 10.8 fL Normal 9.5-13.5 [facility] Comment on above: Performed By: #### C BC ####[facility] Hilzagrhdf[address] [place] [address]Dr. Elba Anthony PLT 150 103/ul Normal 150-450 [facility] Comment on above: Performed By: #### C BC ####[facility] Evlvuitvdw2[address] [place] [address]Dr. Elba Anthony RBC 3.44 106/ul Critically low 4.70-6.10 [facility] Comment on above: Performed By: #### C BC ####[facility] Fvgpzbvyqa67[address] [place], [place] [address]DrLatoya Anthony WBC 7.2 103/ul Normal 4.0-11.0 [facility] Comment on above: Performed By: #### C BC ####[facility] Dsfszjftbv079[address] [place], [place] [address]DrLatoya Anthony PROF 14(COMP METB)on 022 Albumin [Mass/Vol] 2.3 g/dL Critically low 3.4-5.0 [facility] Comment on above: Performed By: #### C MP ####[facility] Xobhlyvrev2739[address] [place], [place] [address]Dr. Elba Anthony Albumin/Globulin [Mass ratio] 0.6 {ratio} Normal [facility] Comment on above: Performed By: #### C MP ####[facility] Xrwbfeiwou[address] [place] [address]Dr. Elba Anthony ALP [Catalytic activity/Vol] 77 U/L Normal 46-116 [facility] Comment on above: Performed By: #### C MP ####[facility] Gjpdpulkps99[address] [place], [place] [address]DrLatoya Anthony ALT [Catalytic activity/Vol] 26 U/L Normal 16-63 [facility] Comment on above: Performed By: #### C MP ####[facility] Sakwvcjoyu9315[address] [place], [place] [address]Dr. Elba Anthony Anion gap [Moles/Vol] 12.3 mmol/L Normal [facility] Comment on above: Performed By: #### C MP ####[facility] Hoxgqmkwzd5406[address] [place], [place] [address]Dr. Elba Anthony AST [Catalytic activity/Vol] 23 U/L Normal 15-37 [facility] Comment on above: Performed By: #### C MP ####[facility] Oesqfgonsr3632[address] [place], [place] [address]Dr. Elba Raj Bilirubin [Mass/Vol] 0.8 mg/dL Normal 0.2-1.3 [facility] Comment on above: Performed By: #### C MP ####[facility] Oteywbkzfh9[address] [place], [place] [address]Dr. Elba Anthony Calcium [Mass/Vol] 8.0 mg/dL Critically low 8.5-10.1 [facility] Comment on above: Performed By: #### C MP ####[facility] Howmmjehfh8899[address] [place], [place] [address]Dr. Elba Anthony Chloride [Moles/Vol] 101 mmol/L Normal 98-107 [facility] Comment on above: Performed By: #### C MP ####[facility] Gpixuoadql2987[address] [place], [place] [address]Dr. Elba Anthony CO2 [Moles/Vol] 25.8 mmol/L Normal 22.0-30.0 [facility] Comment on above: Performed By: #### C MP ####[facility] Fetyrqtnpx6016[address] [place], [place] [address]Dr. Elba Anthony Creatinine [Mass/Vol] 2.72 mg/dL Critically high 0.66-1.25 [facility] Comment on above: Performed By: #### C MP ####[facility] Touyjbmoux32[address] [place], [place] [address]Dr. Elba Anthony EGFR-AF SOMALI 28 mL/min/1.73m2 Critically low >=60 [facility] Comment on above: Performed By: #### C MP ####[facility] Qltsxmciig8123[address] [place], [place] [address]Dr. Elba Anthony EGFR-NON AF SOMALI 23 mL/min/1.73m2 Critically low >=60 [facility] Comment on above: Performed By: #### C MP ####[facility] Dzfftqxnif50[address] [place] [address]Dr. Elba Anthony Globulin (S) [Mass/Vol] 4.1 g/dL Normal [facility] Comment on above: Performed By: #### C MP ####[facility] Fqpoxfjdpp3[address] [place] [address]Dr. Elba Anthony Glucose [Mass/Vol] 130 mg/dL Critically high 74-106 [facility] Comment on above: Performed By: #### C MP ####[facility] Denzjocrob280[address] [place], [place] [address]Dr. Elba Anthony Potassium [Moles/Vol] 4.1 mmol/L Normal 3.4-5.0 [facility] Comment on above: Performed By: #### C MP ####[facility] Vmvsgmgxex9516[address] [place], [place] [address]Dr. Elba Anthony Protein [Mass/Vol] 6.4 g/dL Normal 6.1-8.2 [facility] Comment on above: Performed By: #### C MP ####[facility] Guqbaqsxam6542[address] [place], [place] [address]Dr. Elba Anthony Sodium [Moles/Vol] 135 mmol/L Critically low 137-145 Th [facility] Comment on above: Performed By: #### C MP ####[facility] Wcflomrbes8[address] [place], [place] [address]Dr. Elba Anthony Urea nitrogen [Mass/Vol] 60.0 mg/dL Critically high 7.0-18.0 [facility] Comment on above: Performed By: #### C MP ####[facility] Jqdvkgzhsl8026[address] [place], [place] [address]Dr. Elba Anthony Urea nitrogen/Creatinine [Mass ratio] 22.1 mg/mg Normal [facility] Comment on above: Performed By: #### C MP ####[facility] Hcvdymlmtg9386[address] [place], [place] [address]Dr. Elba Anthony BNPon 12-15-2021 Natriuretic peptide B (Bld) [Mass/Vol] 95869.0 pg/mL Critically high <=900.0 [facility] Comment on above: Result Comment: Test Repeated. Critical Value Verified Performed By: #### C MP, BNP, CRP ####[facility] W[address]vqm[address] [place], [place] [id number] Elba Raj CBC AUTO DIFFon 12-15-2021 BASO # 0.0 103/ul Normal 0.0-0.1 [facility] Comment on above: Performed By: #### C BC ####[facility] Nydrwvzwxd5227[address] [place], [place] [address]DrLatoya Elba Raj Basophils/100 WBC (Bld) 0.2 % Normal 0.2-2.0 [facility] Comment on above: Performed By: #### C BC ####[facility] Rebstwkceg0823[address] [place], [place] [address]DrLatoya Anthony EO # 0.1 103/ul Normal 0.0-0.7 [facility] Comment on above: Performed By: #### C BC ####[facility] Dhfmawwvtq211[address] [place], [place] [address]DrLatoya Elba Raj Eosinophils/100 WBC (Bld) 1.3 % Normal 0.9-7.0 [facility] Comment on above: Performed By: #### C BC ####[facility] Bhbctzwnvt475[address] [place], [place] [address]DrLatoya Elba Raj Erythrocyte distribution width (RBC) [Ratio] 19.0 % Critically high 11.0-15.0 [facility] Comment on above: Performed By: #### C BC ####[facility] Jhmtxoxuqa2156[address] [place], [place] [address]DrLatoya Elba Raj Hematocrit (Bld) [Volume fraction] 28.7 % Critically low 42.0-54.0 [facility] Comment on above: Performed By: #### C BC ####[facility] Czfgszliak[address] [place], [place] [address]DrLatoya Elba Raj Hemoglobin (Bld) [Mass/Vol] 8.7 g/dL Critically low 14.0-18.0 [facility] Comment on above: Performed By: #### C BC ####[facility] Zdjembcarx[address] [place] [address]DrLatoya Anthony IG # 0.04 10e3/ul Critically high 0.00-0.03 [facility] Comment on above: Performed By: #### C BC ####[facility] Hmfteidcnp13[address] [place] [address]DrLatoya Anthony IG % 0.5 % Normal 0.0-0.5 [facility] Comment on above: Performed By: #### C BC ####[facility] Vphavisyeb[address] [place], [place] [address]DrLatoya Anthony LYMPH # 0.4 103/ul Critically low 1.2-3.8 [facility] Comment on above: Performed By: #### C BC ####[facility] X[address]vehmfkq15[address] [place] [address]DrLatoya Anthony Lymphocytes/100 WBC (Bld) 4.2 % Critically low 20.5-60.0 [facility] Comment on above: Performed By: #### C BC ####[facility] Taplezkwdr[address] [place] [address]DrLatoya Anthony MANUAL DIFF REQ NO Normal [facility] Comment on above: Performed By: #### C BC ####[facility] Esnypnzjig64[address] [place] [address]DrLatoya Anthony MCH (RBC) [Entitic mass] 25.5 pg Critically low 25.9-34.0 [facility] Comment on above: Performed By: #### C BC ####[facility] Novlslbnct46[address] [place] [address]DrLatoya Anthony MCHC (RBC) [Mass/Vol] 30.3 g/dL Normal 29.9-35.2 [facility] Comment on above: Performed By: #### C BC ####[facility] Jayxljgxow[address] [place] [address]DrLatoya Anthony MCV (RBC) [Entitic vol] 84.2 fL Normal 80.0-94.0 [facility] Comment on above: Performed By: #### C BC ####[facility] E[address]ixeqj[address] [place] [id number]. Elba Anthony MONO # 0.6 103/ul Normal 0.3-0.8 [facility] Comment on above: Performed By: #### C BC ####[facility] Ayerewwapb44[address] [place] [id number]. Elba Anthony Monocytes/100 WBC (Bld) 7.5 % Normal 1.7-12.0 [facility] Comment on above: Performed By: #### C BC ####[facility] Klfupwbxqu6[address] [place] [address]Dr. Elba Anthony NEUT # 7.2 103/ul Critically high 1.4-6.5 [facility] Comment on above: Performed By: #### C BC ####[facility] Msxhayuyqo96[address] [place] [address]Dr. Elba Anthony Neutrophils/100 WBC (Bld) 86.3 % Critically high 43.0-75.0 [facility] Comment on above: Performed By: #### C BC ####[facility] Qfsjibvido54[address] [place] [address]Dr. Elba Anthnoy Platelet mean volume (Bld) [Entitic vol] 10.7 fL Normal 9.5-13.5 [facility] Comment on above: Performed By: #### C BC ####[facility] Iktbkszdvz9046 [place] [id number]. Elba Anthony PLT 132 103/ul Critically low 150-450 [facility] Comment on above: Performed By: #### C BC ####[facility] Cnpncedgvr6581 [place] [id number]. Elba Anthony RBC 3.41 106/ul Critically low 4.70-6.10 [facility] Comment on above: Performed By: #### C BC ####[facility] Rgiavcabeg[address] [place] [id number]. Elba Anthony WBC 8.4 103/ul Normal 4.0-11.0 [facility] Comment on above: Performed By: #### C BC ####[facility] Iyfxgncixn8016 [place] [address]Dr. Elba Anthony CRPon 12-15-2021 CRP [Mass/Vol] mg/L Critically high <=1.0 [facility] Comment on above: Performed By: #### C MP, BNP, CRP ####[facility] Ufukptnhsf[address] [place] [address]Dr. Elba Anthony PROF 14(COMP METB)on 022 Albumin [Mass/Vol] 2.4 g/dL Critically low 3.4-5.0 [facility] Comment on above: Performed By: #### C MP, BNP, CRP ####[facility] Zstxeywaix[address] [place], [place] [address]Dr. Elba Anthony Albumin/Globulin [Mass ratio] 0.6 {ratio} Normal [facility] Comment on above: Performed By: #### C MP, BNP, CRP ####[facility] Tsyxhwvcid3[address] [place], [place] [address]Dr. Elba Anthony ALP [Catalytic activity/Vol] 75 U/L Normal 46-116 [facility] Comment on above: Performed By: #### C MP, BNP, CRP ####[facility] Jhbqvtdwfl10[address] [place], [place] [address]Dr. Elba Anthony ALT [Catalytic activity/Vol] 22 U/L Normal 16-63 [facility] Comment on above: Performed By: #### C MP, BNP, CRP ####[facility] Isnjrhtkol0184 [place] [address]Dr. Elba Anthony Anion gap [Moles/Vol] 13.8 mmol/L Normal [facility] Comment on above: Performed By: #### C MP, BNP, CRP ####[facility] Eyrhfvukwf9466[address] [place], [place] [address]Dr. Elba Anthony AST [Catalytic activity/Vol] 17 U/L Normal 15-37 [facility] Comment on above: Performed By: #### C MP, BNP, CRP ####[facility] Cnxhkborfd[address] [place], [place] [address]Dr. Elba Anthony Bilirubin [Mass/Vol] 0.8 mg/dL Normal 0.2-1.3 [facility] Comment on above: Performed By: #### C MP, BNP, CRP ####[facility] Xxbhcpbuty97[address] [place] [address]Dr. Elba Anthony Calcium [Mass/Vol] 7.7 mg/dL Critically low 8.5-10.1 Th [facility] Comment on above: Performed By: #### C MP, BNP, CRP ####[facility] Mzzqjyfsub14[address] [place] [address]Dr. Elba Anthony Chloride [Moles/Vol] 98 mmol/L Normal 98-107 [facility] Comment on above: Performed By: #### C MP, BNP, CRP ####[facility] Ufmkrgnwnj0[address] [place] [address]Dr. Elba Anthony CO2 [Moles/Vol] 24.5 mmol/L Normal 22.0-30.0 [facility] Comment on above: Performed By: #### C MP, BNP, CRP ####[facility] Mskhhviaqy5[address] [place] [address]Dr. Elba Anthony Creatinine [Mass/Vol] 3.10 mg/dL Critically high 0.66-1.25 [facility] Comment on above: Performed By: #### C MP, BNP, CRP ####[facility] Rbstliuwnp46[address] [place] [address]Dr. Elba Anthony EGFR-AF SOMALI 24 mL/min/1.73m2 Critically low >=60 [facility] Comment on above: Performed By: #### C MP, BNP, CRP ####[facility] Okdgrrowku[address] [place] [address]Dr. Elba Anthony EGFR-NON AF SOMALI 20 mL/min/1.73m2 Critically low >=60 [facility] Comment on above: Performed By: #### C MP, BNP, CRP ####[facility] Xgyiuznper2179 [place] [address]Dr. Elba Anthony Globulin (S) [Mass/Vol] 4.1 g/dL Normal [facility] Comment on above: Performed By: #### C MP, BNP, CRP ####[facility] Dqywiwmjgm6466 [place] [address]Dr. Elba Anthony Glucose [Mass/Vol] 141 mg/dL Critically high 74-106 T [facility] Comment on above: Performed By: #### C MP, BNP, CRP ####[facility] Hzkopyhuct1548 [place] [address]Dr. Elba Anthony Potassium [Moles/Vol] 4.3 mmol/L Normal 3.4-5.0 [facility] Comment on above: Performed By: #### C MP, BNP, CRP ####[facility] Hkqugyihse6419 [place] [address]Dr. Elba Anthony Protein [Mass/Vol] 6.5 g/dL Normal 6.1-8.2 [facility] Comment on above: Performed By: #### C MP, BNP, CRP ####[facility] Nuzuuikpll85[address] [place], [place] [address]Dr. Elba Anthony Sodium [Moles/Vol] 132 mmol/L Critically low 137-145 Th [facility] Comment on above: Performed By: #### C MP, BNP, CRP ####[facility] Brfipyqxaf2176[address] [place], [place] [address]Dr. Elba Anthony Urea nitrogen [Mass/Vol] 62.0 mg/dL Critically high 7.0-18.0 [facility] Comment on above: Performed By: #### C MP, BNP, CRP ####[facility] Mwcmjigvnx7[address] [place], [place] [address]Dr. Elba Anthony Urea nitrogen/Creatinine [Mass ratio] 20.0 mg/mg Normal [facility] Comment on above: Performed By: #### C MP, BNP, CRP ####[facility] Xoczzdsbji539[address] [place], [place] [address]Dr. Elba Anthony UA RANDOM W/MICROSCOPICon BACTERIA TRACE Abnormal NONE SEEN [facility] Comment on above: Performed By: #### U AMIC ####[facility] Hfpzrvjwyr5225[address] [place], [place] [address]Dr. Elba Anthony Bilirubin Ql (U) Negative Normal NEGATIVE [facility] Comment on above: Performed By: #### U AMIC ####[facility] Yhdisucupa3856[address] [place], [place] [address]Dr. Elba Anthony CAST NONE SEEN Normal NONE SEEN [facility] Comment on above: Performed By: #### U AMIC ####[facility] Lnnijweaqh[address] [place], [place] [address]Dr. Elba Anthony Clarity (U) CLEAR Normal CLEAR [facility] Comment on above: Performed By: #### U AMIC ####[facility] Fmyqvnqxwl046[address] [place], [place] [address]Dr. Elba Anthony Color (U) LT. YELLOW Normal YELLOW [facility] Comment on above: Performed By: #### U AMIC ####[facility] Kahotevgxs[address] [place], [place] [address]Dr. Elba Anthony Crystals LM Nom (Urine sed) SEEN Abnormal NONE SEEN [facility] Comment on above: Performed By: #### U AMIC ####[facility] Xhfkjntiyl2538[address] [place], [place] [address]Dr. Elba Anthony Epithelial cells LM Ql (Urine sed) RARE Normal NONE SEEN /RARE [facility] Comment on above: Performed By: #### U AMIC ####[facility] Cbmndjkfvq128[address] [place], [place] [address]Dr. Elba Anthony Glucose Ql (U) Negative Normal NEGATIVE [facility] Comment on above: Performed By: #### U AMIC ####[facility] Ulvppiiuhk8[address] [place], [place] [address]Dr. Elba Anthony Hemoglobin Ql (U) MODERATE Abnormal NEGATIVE [facility] Comment on above: Performed By: #### U AMIC ####[facility] Blwzkxuddv0996[address] [place], [place] [address]Dr. Elba Anthony Ketones Ql (U) Negative Normal NEGATIVE [facility] Comment on above: Performed By: #### U AMIC ####[facility] Jhhczthtvi7[address] [place], [place] [address]Dr. Elba Anthony LEUKOCYTES Negative Normal NEGATIVE [facility] Comment on above: Performed By: #### U AMIC ####[facility] Gzrswtemvl4596 [place] [address]Dr. Nereydasiobhan Raj MUCOUS NONE SEEN Normal NONE SEEN [facility] Comment on above: Performed By: #### U AMIC ####[facility] Stqqjobqkv3923 [place] [address]Dr. Elba Anthony Nitrite Ql (U) Negative Normal NEGATIVE [facility] Comment on above: Performed By: #### U AMIC ####[facility] Zhuocdbdhi5849 [place] [address]Dr. Elba Anthony pH (U) 5.5 [pH] Normal 5-9 [facility] Comment on above: Performed By: #### U AMIC ####[facility] Yinayviuue9557 [place] [address]Dr. Elba Anthony RBC 50-75 Abnormal 0-2 [facility] Comment on above: Performed By: #### U AMIC ####[facility] Mopinvdabs9[address] [place], [place] [address]Dr. Elba Anthony SPEC GRAVITY 1.015 Normal 1.005-<=1.02 5 [facility] Comment on above: Performed By: #### U AMIC ####[facility] Ivobjoirte0915[address] [place], [place] [address]Dr. Elba Anthony UA PROTEIN Negative Normal NEGATIVE/ TRACE [facility] Comment on above: Performed By: #### U AMIC ####[facility] Qmbfxuwjvo3[address] [place], [place] [address]Dr. Elba Anthony URIC ACID CRYSTALS FEW Normal [facility] Comment on above: Performed By: #### U AMIC ####[facility] Euzxlxnwng9572 [place] [address]Dr. Elba Anthony Urobilinogen Qn (U) 0.2 {Caden'U}/dL Normal 0.2 - 1. 0 [facility] Comment on above: Performed By: #### U AMIC ####[facility] Siufmeoart84[address] [place], [place] [address]Dr. Elba Anthony WBC 0-2 Abnormal NONE SEEN [facility] Comment on above: Performed By: #### U AMIC ####[facility] Uiafwoaigq26[address] [place] [address]Dr. Elba Anthony BNPon 12-14-2021 Natriuretic peptide B (Bld) [Mass/Vol] 43256.0 pg/mL Critically high <=900.0 [facility] Comment on above: Result Comment: test repeated Performed By: #### C RP, CMP, BNP ####[facility] Ctfnfynawc[address] [place], [place] [address]Dr. Elba Raj CBC AUTO DIFFon 12-14-2021 BASO # 0.0 103/ul Normal 0.0-0.1 [facility] Comment on above: Performed By: #### C BC ####[facility] Eqtiqrkhel020[address] [place], [place] [address]Dr. Elba Anthony Basophils/100 WBC (Bld) 0.1 % Critically low 0.2-2.0 [facility] Comment on above: Performed By: #### C BC ####[facility] Qthdzyyicx[address] [place], [place] [address]Dr. Elba Anthony EO # 0.1 103/ul Normal 0.0-0.7 [facility] Comment on above: Performed By: #### C BC ####[facility] Djiyiekxvf0868[address] [place], [place] [address]Dr. Nereydasiobhan Anthony Eosinophils/100 WBC (Bld) 1.1 % Normal 0.9-7.0 [facility] Comment on above: Performed By: #### C BC ####[facility] Gemolunfvc8766[address] [place], [place] [address]Dr. Nereydasiobhan Anthony Erythrocyte distribution width (RBC) [Ratio] 18.7 % Critically high 11.0-15.0 [facility] Comment on above: Performed By: #### C BC ####[facility] Jmjdfyswfl[address] [place], [place] [address]Dr. Elba Anthony Hematocrit (Bld) [Volume fraction] 28.9 % Critically low 42.0-54.0 [facility] Comment on above: Performed By: #### C BC ####[facility] Pnkpkedbce05[address] [place] [id number]. Elba Anthony Hemoglobin (Bld) [Mass/Vol] 8.7 g/dL Critically low 14.0-18.0 [facility] Comment on above: Performed By: #### C BC ####[facility] Ylvasrzyfa8159 [place] [id number]. Elba Anthony IG # 0.04 10e3/ul Critically high 0.00-0.03 [facility] Comment on above: Performed By: #### C BC ####[facility] Hcgtpnyrxo6[address] [place] [address]Dr. Elba Anthony IG % 0.4 % Normal 0.0-0.5 [facility] Comment on above: Performed By: #### C BC ####[facility] B[address]zescgr[address] [place] [address]Dr. Elba Anthony LYMPH # 0.4 103/ul Critically low 1.2-3.8 [facility] Comment on above: Performed By: #### C BC ####[facility] Kjzptfkuer[address] [address]Dr. Elba Anthony Lymphocytes/100 WBC (Bld) 4.1 % Critically low 20.5-60.0 [facility] Comment on above: Result Comment: dif. not rqd. same as 12/12/21 Performed By: #### C BC ####[facility] Fsanwsbhyq[address] [place] [address]Dr. Elba Anthony MANUAL DIFF REQ NO Normal [facility] Comment on above: Performed By: #### C BC ####[facility] Uzntmqrgjm[address] [address]Dr. Elba Anthony MCH (RBC) [Entitic mass] 25.3 pg Critically low 25.9-34.0 [facility] Comment on above: Performed By: #### C BC ####[facility] Axbbunownt[address] [place], [place] [address]Dr. Elba Anthony MCHC (RBC) [Mass/Vol] 30.1 g/dL Normal 29.9-35.2 [facility] Comment on above: Performed By: #### C BC ####[facility] Lytfmwxpia[address] [place] [id number]. Elba Anthony MCV (RBC) [Entitic vol] 84.0 fL Normal 80.0-94.0 [facility] Comment on above: Performed By: #### C BC ####[facility] Emoymxdlqt75[address] [id number]. Elba Anthony MONO # 0.9 103/ul Critically high 0.3-0.8 [facility] Comment on above: Performed By: #### C BC ####[facility] Ydmfkubwdj01[address] [place] [id number]. Elba Raj Monocytes/100 WBC (Bld) 9.3 % Normal 1.7-12.0 [facility] Comment on above: Performed By: #### C BC ####[facility] Yesjjtshas[address] [place], [place] [address]Dr. Elba Anthony NEUT # 7.8 103/ul Critically high 1.4-6.5 [facility] Comment on above: Performed By: #### C BC ####[facility] Oarfysasxj[address] [place], [place] [address]Dr. Elba Raj Neutrophils/100 WBC (Bld) 85.0 % Critically high 43.0-75.0 [facility] Comment on above: Performed By: #### C BC ####[facility] [address]xfnxppxuf[address] [place], [place] [id number]. Elba Raj Platelet mean volume (Bld) [Entitic vol] 11.0 fL Normal 9.5-13.5 [facility] Comment on above: Performed By: #### C BC ####[facility] Jpuc[address]ohyh7[address] [id number]. Elba Raj PLT 117 103/ul Critically low 150-450 [facility] Comment on above: Performed By: #### C BC ####[facility] Rqkkjabsku88[address] [id number]. Elba Anthony RBC 3.44 106/ul Critically low 4.70-6.10 [facility] Comment on above: Performed By: #### C BC ####[facility] Njkkngvnou6[address] [place] [address]Dr. Elba Anthony WBC 9.2 103/ul Normal 4.0-11.0 [facility] Comment on above: Performed By: #### C BC ####[facility] Piwvkoukpx[address] [place] [address]Dr. Elba Anthony CRPon 12-14-2021 CRP [Mass/Vol] mg/L Critically high <=1.0 [facility] Comment on above: Performed By: #### C RP, CMP, BNP ####[facility] Aicrcnwtpa[address] [place] [address]Dr. Elba Anthony PROF 14(COMP METB)on 022 Albumin [Mass/Vol] 2.5 g/dL Critically low 3.4-5.0 [facility] Comment on above: Performed By: #### C RP, CMP, BNP ####[facility] Bjqihsiiet[address] [place] [address]Dr. Elba Anthony Albumin/Globulin [Mass ratio] 0.6 {ratio} Normal [facility] Comment on above: Performed By: #### C RP, CMP, BNP ####[facility] Qkbtjprxoi22[address] [place] [address]Dr. Elba Anthony ALP [Catalytic activity/Vol] 76 U/L Normal 46-116 [facility] Comment on above: Performed By: #### C RP, CMP, BNP ####[facility] Atgdvceadf[address] [place] [address]Dr. Elba Anthony ALT [Catalytic activity/Vol] 17 U/L Normal 16-63 [facility] Comment on above: Performed By: #### C RP, CMP, BNP ####[facility] Rcvjhygnle8[address] [place] [address]Dr. Elba Anthony Anion gap [Moles/Vol] 13.3 mmol/L Normal [facility] Comment on above: Performed By: #### C RP, CMP, BNP ####[facility] Vwrfjttdcc48[address] [place] [address]Dr. Elba Anthony AST [Catalytic activity/Vol] 22 U/L Normal 15-37 [facility] Comment on above: Performed By: #### C RP, CMP, BNP ####[facility] Wokjxjenze280[address] [place] [address]Dr. Elba Anthony Bilirubin [Mass/Vol] 1.0 mg/dL Normal 0.2-1.3 [facility] Comment on above: Performed By: #### C RP, CMP, BNP ####[facility] Lxvholqfti24[address] [place], [place] [address]Dr. Elba Anthony Calcium [Mass/Vol] 8.1 mg/dL Critically low 8.5-10.1 [facility] Comment on above: Performed By: #### C RP, CMP, BNP ####[facility] Allhvpvohw84[address] [place], [place] [address]Dr. Elba Anthony Chloride [Moles/Vol] 97 mmol/L Critically low 98-107 [facility] Comment on above: Performed By: #### C RP, CMP, BNP ####[facility] Gprymfcgxj8[address] [place], [place] [address]Dr. Elba Anthony CO2 [Moles/Vol] 25.0 mmol/L Normal 22.0-30.0 [facility] Comment on above: Performed By: #### C RP, CMP, BNP ####[facility] Bcjoxrgvpz4[address] [place], [place] [address]Dr. Elba Anthony Creatinine [Mass/Vol] 2.85 mg/dL Critically high 0.66-1.25 [facility] Comment on above: Performed By: #### C RP, CMP, BNP ####[facility] Ixgczaecgz9[address] [place], [place] [address]Dr. Elba Anthony EGFR-AF SOMALI 27 mL/min/1.73m2 Critically low >=60 [facility] Comment on above: Performed By: #### C RP, CMP, BNP ####[facility] Stpuzfddbc364[address] [place], [place] [address]Dr. Elba Anthony EGFR-NON AF SOMALI 22 mL/min/1.73m2 Critically low >=60 [facility] Comment on above: Performed By: #### C RP, CMP, BNP ####[facility] Cxysavlhxk[address] [place] [address]Dr. Elba Anthony Globulin (S) [Mass/Vol] 3.9 g/dL Normal [facility] Comment on above: Performed By: #### C RP, CMP, BNP ####[facility] Wrirgcasnb2[address] [place] [address]Dr. Elba Anthony Glucose [Mass/Vol] 123 mg/dL Critically high 74-106 T [facility] Comment on above: Performed By: #### C RP, CMP, BNP ####[facility] Miqxamkaku7[address] [place] [address]Dr. Elba Anthony Potassium [Moles/Vol] 4.3 mmol/L Normal 3.4-5.0 [facility] Comment on above: Performed By: #### C RP, CMP, BNP ####[facility] Woibctmuhb14[address] [place], [place] [address]Dr. Elba Anthony Protein [Mass/Vol] 6.4 g/dL Normal 6.1-8.2 [facility] Comment on above: Performed By: #### C RP, CMP, BNP ####[facility] Xfeblckmvq1292[address] [place], [place] [address]Dr. Elba Anthony Sodium [Moles/Vol] 131 mmol/L Critically low 137-145 Th [facility] Comment on above: Performed By: #### C RP, CMP, BNP ####[facility] Jtbjdjrwbm[address] [place] [address]Dr. Elba Anthony Urea nitrogen [Mass/Vol] 57.0 mg/dL Critically high 7.0-18.0 [facility] Comment on above: Performed By: #### C RP, CMP, BNP ####[facility] Vlrdlyjdsu[address] [place], [place] [address]Dr. Elba Anthony Urea nitrogen/Creatinine [Mass ratio] 20.0 mg/mg Normal [facility] Comment on above: Performed By: #### C RP, CMP, BNP ####[facility] Rzvnumxmie[address] [place] [address]DrLatoya Anthony XR CHEST 1 Von 12-14-2021 XR CHEST 1 V Normal [facility] XR CHEST 1 V Normal [facility] BNPon 12-13-2021 Natriuretic peptide B (Bld) [Mass/Vol] 94120.0 pg/mL Critically high <=900.0 [facility] Comment on above: Performed By: #### B RIVET DRIVER ####[facility] Twxwofxwnn73[address] [place], [place] [address]Dr. Elba Anthony CBC AUTO DIFFon 12-13-2021 BASO # 0.0 103/ul Normal 0.0-0.1 [facility] Comment on above: Performed By: #### C BC ####[facility] Ddiydvxtjo95[address] [place], [place] [address]DrLatoya Anthony Basophils/100 WBC (Bld) 0.1 % Critically low 0.2-2.0 [facility] Comment on above: Performed By: #### C BC ####[facility] Oohcalhwwt[address] [place], [place] [address]Dr. Elba Anthony EO # 0.0 103/ul Normal 0.0-0.7 [facility] Comment on above: Performed By: #### C BC ####[facility] Rxdhvenmyz36[address] [place], [place] [address]Dr. Elba Anthony Eosinophils/100 WBC (Bld) 0.2 % Critically low 0.9-7.0 [facility] Comment on above: Performed By: #### C BC ####[facility] Keikrpflae11[address] [place], [place] [address]DrLatoya Anthony Erythrocyte distribution width (RBC) [Ratio] 19.0 % Critically high 11.0-15.0 [facility] Comment on above: Performed By: #### C BC ####[facility] Qavidwnrsm89[address] [place], [place] [address]DrLatoya Anthony Hematocrit (Bld) [Volume fraction] 31.8 % Critically low 42.0-54.0 [facility] Comment on above: Performed By: #### C BC ####[facility] Yiickvsmow85[address] [place], [place] [address]DrLatoya Anthony Hemoglobin (Bld) [Mass/Vol] 9.5 g/dL Critically low 14.0-18.0 [facility] Comment on above: Performed By: #### C BC ####[facility] J[address]aknkitc[address] [place] [address]Dr. Elba Anthony IG # 0.05 10e3/ul Critically high 0.00-0.03 [facility] Comment on above: Performed By: #### C BC ####[facility] Cxxivysvch7406 [place] [address]Dr. Elba Anthony IG % 0.4 % Normal 0.0-0.5 [facility] Comment on above: Performed By: #### C BC ####[facility] Nfqvorhypw09[address] [place], [place] [address]Dr. Elba Anthony LYMPH # 0.3 103/ul Critically low 1.2-3.8 [facility] Comment on above: Performed By: #### C BC ####[facility] Vcbclfvhyx[address] [place], [place] [address]Dr. Elba Anthony Lymphocytes/100 WBC (Bld) 2.3 % Critically low 20.5-60.0 [facility] Comment on above: Result Comment: dif. not rqd. same as 12/12/21 Performed By: #### C BC ####[facility] Pkubrwlgej[address] [place], [place] [address]Dr. Elba Anthony MANUAL DIFF REQ NO Normal [facility] Comment on above: Performed By: #### C BC ####[facility] Zopvjlpdfm[address] [place], [place] [address]Dr. Elba Anthony MCH (RBC) [Entitic mass] 25.3 pg Critically low 25.9-34.0 [facility] Comment on above: Performed By: #### C BC ####[facility] Ncbqlescqo69[address] [place], [place] [address]Dr. Elba Anthony MCHC (RBC) [Mass/Vol] 29.9 g/dL Normal 29.9-35.2 [facility] Comment on above: Performed By: #### C BC ####[facility] Lxedctkiip4[address] [place] [id number]. Elba Anthony MCV (RBC) [Entitic vol] 84.8 fL Normal 80.0-94.0 [facility] Comment on above: Performed By: #### C BC ####[facility] Ycqiebxaat2858 [place] [id number]. Elba Anthony MONO # 0.8 103/ul Normal 0.3-0.8 [facility] Comment on above: Performed By: #### C BC ####[facility] Dgfgktcmma1049 [place] [id number]. Elba Anthony Monocytes/100 WBC (Bld) 6.7 % Normal 1.7-12.0 [facility] Comment on above: Performed By: #### C BC ####[facility] Dospvaqjxg8534[address] [place], [place] [address]Dr. Elba Anthony NEUT # 11.0 103/ul Critically high 1.4-6.5 [facility] Comment on above: Performed By: #### C BC ####[facility] [address]teucqkdp[address] [place], [place] [address]Dr. Elba Anthony Neutrophils/100 WBC (Bld) 90.3 % Critically high 43.0-75.0 [facility] Comment on above: Performed By: #### C BC ####[facility] Bjuocylrcv[address] [place], [place] [address]Dr. Elba Anthony Platelet mean volume (Bld) [Entitic vol] 10.8 fL Normal 9.5-13.5 [facility] Comment on above: Performed By: #### C BC ####[facility] Bmelhjagxw39[address] [place] [id number]. Elba Anthony PLT 130 103/ul Critically low 150-450 [facility] Comment on above: Performed By: #### C BC ####[facility] Qiyozqynhc[address] [place], [place] [address]Dr. Elba Anthony RBC 3.75 106/ul Critically low 4.70-6.10 [facility] Comment on above: Performed By: #### C BC ####[facility] Kgcwpirlex[address] [place] [address]Dr. Elba Anthony WBC 12.2 103/ul Critically high 4.0-11.0 [facility] Comment on above: Performed By: #### C BC ####[facility] Tknztjuffr[address] [place] [address]Dr. Elba Anthony CRPon 12-13-2021 CRP [Mass/Vol] mg/L Critically high <=1.0 [facility] Comment on above: Performed By: #### C MP, CRP ####[facility] Liadrnuxql703[address] [place], [place] [address]Dr. Elba Anthony ECHO LIMITED STUDYon 022 ECHO LIMITED STUDY Normal [facility] PROF 14(COMP METB)on 022 Albumin [Mass/Vol] 2.9 g/dL Critically low 3.4-5.0 [facility] Comment on above: Performed By: #### C MP, CRP ####[facility] Gciyiuxuuo86[address] [place], [place] [address]Dr. Elba Anthony Albumin/Globulin [Mass ratio] 0.7 {ratio} Normal [facility] Comment on above: Performed By: #### C MP, CRP ####[facility] Vmevrkzxlr5[address] [place], [place] [address]Dr. Elba Anthony ALP [Catalytic activity/Vol] 88 U/L Normal 46-116 [facility] Comment on above: Performed By: #### C MP, CRP ####[facility] Uhfedqlbwi035[address] [place], [place] [address]Dr. Elba Anthony ALT [Catalytic activity/Vol] 15 U/L Critically low 16-63 [facility] Comment on above: Performed By: #### C MP, CRP ####[facility] Jyvqdjmcbz9[address] [place], [place] [address]Dr. Elba Anthony Anion gap [Moles/Vol] 15.1 mmol/L Normal [facility] Comment on above: Performed By: #### C MP, CRP ####[facility] Vyrdlwlidd215[address] [place], [place] [address]Dr. Elba Anthony AST [Catalytic activity/Vol] 14 U/L Critically low 15-37 [facility] Comment on above: Performed By: #### C MP, CRP ####[facility] Dozyyijnpr[address] [place] [address]Dr. Elba Anthony Bilirubin [Mass/Vol] 1.5 mg/dL Critically high 0.2-1.3 [facility] Comment on above: Performed By: #### C MP, CRP ####[facility] Rebohwafyu95[address] [place], [place] [address]Dr. Elba Anthony Calcium [Mass/Vol] 8.6 mg/dL Normal 8.5-10.1 [facility] Comment on above: Performed By: #### C MP, CRP ####[facility] Xuvbtjsmth03[address] [place], [place] [address]Dr. Elba Anthony Chloride [Moles/Vol] 99 mmol/L Normal 98-107 [facility] Comment on above: Performed By: #### C MP, CRP ####[facility] Lbboxkfkvh68[address] [place], [place] [address]Dr. Elba Anthony CO2 [Moles/Vol] 24.3 mmol/L Normal 22.0-30.0 [facility] Comment on above: Performed By: #### C MP, CRP ####[facility] Usoaedrugs4[address] [place], [place] [address]Dr. Elba Anthony Creatinine [Mass/Vol] 2.52 mg/dL Critically high 0.66-1.25 [facility] Comment on above: Performed By: #### C MP, CRP ####[facility] F[address]mhdznql[address] [place], [place] [address]Dr. Elba Anthony EGFR-AF SOMALI 31 mL/min/1.73m2 Critically low >=60 [facility] Comment on above: Performed By: #### C MP, CRP ####[facility] Jyqylloiqj[address] [place], [place] [address]Dr. Elba Anthony EGFR-NON AF SOMALI 25 mL/min/1.73m2 Critically low >=60 [facility] Comment on above: Performed By: #### C MP, CRP ####[facility] [address]fmsmgid[address] [place], [place] [address]Dr. Elba Anthony Globulin (S) [Mass/Vol] 3.9 g/dL Normal [facility] Comment on above: Performed By: #### C MP, CRP ####[facility] Pmyfspddcw6[address] [place] [address]Dr. Elba Anthony Glucose [Mass/Vol] 133 mg/dL Critically high 74-106 T [facility] Comment on above: Performed By: #### C MP, CRP ####[facility] Ytuowadpkm8[address] [place] [address]Dr. Elba Anthony Potassium [Moles/Vol] 4.4 mmol/L Normal 3.4-5.0 [facility] Comment on above: Performed By: #### C MP, CRP ####[facility] Pfbfytnlfn95[address] [place] [address]Dr. Elba Anthony Protein [Mass/Vol] 6.8 g/dL Normal 6.1-8.2 [facility] Comment on above: Performed By: #### C MP, CRP ####[facility] [address]fzabjsdn18[address] [place], [place] [address]Dr. Elba Anthony Sodium [Moles/Vol] 134 mmol/L Critically low 137-145 [facility] Comment on above: Performed By: #### C MP, CRP ####[facility] Wczrtcequv[address] [place], [place] [address]Dr. Elba Anthony Urea nitrogen [Mass/Vol] 47.0 mg/dL Critically high 7.0-18.0 [facility] Comment on above: Performed By: #### C MP, CRP ####[facility] Boiuiafbmm[address] [place] [address]Dr. Elba Anthony Urea nitrogen/Creatinine [Mass ratio] 18.7 mg/mg Normal [facility] Comment on above: Performed By: #### C MP, CRP ####[facility] Ysdsmxzfnv[address] [place], [place] [address]Dr. Elba Anthony T3, TOTAL (TRIIODOTHYRONINE) on 12-13-2021 T3, TOTAL 66 ng/dL Critically low 71-180 [facility] Comment on above: Performed By: #### T 3TOTAL ####[facility] Ymlpeekwhj6259 [place], [place] [address]Xd. Elba Anthony US KIDNEYS BLADDERon 022 US KIDNEYS BLADDER Normal [facility] BLOOD CULTURE ID PANELon A. baumannii Not detected Normal [facility] Comment on above: Performed By: #### B PABLO ####[facility] Rymysmeoez4[address] [place] [id number]. Elba Anthony BCID CONTROLS PASSED Normal [facility] Comment on above: Performed By: #### B PABLO ####[facility] Jejqikkcky9854 [place] [id number]. Nereydasiobhan Raj GARIBAYDBTHD BLOOD CULTURE BOTTLE INFORMATION [facility] Comment on above: Performed By: #### B PABLO ####[facility] Syfmfhblbp8404 [place] [id number]. Elba Raj BCIDHD1 ANTIMICROBIAL RESIST ANCE GENES [facility] Comment on above: Performed By: #### B PABLO ####[facility] Zxupuhvcxf[address] [place], [place] [address]Dr. Elba Anthony BCIDHD2 SEE BELOW [facility] Comment on above: Result Comment: KPC- carbapenem resistance gene, mecA- methecillin resistance gene, van A/B- vancomycin resistance gene Note: Antimicrobial resitance can occur via multiple mechanisms. A Not Detected result for the [employer] antomicrobial resistance gene assays does not indicate antimicrobial susceptibility. Subculturing is required for specis identificationand susceptibility testing of isolates. Performed By: #### B PABLO ####[facility] Qltyxpfbux9515 [place] [id number]. Elba Anthony BCIDHD3 Positive Normal [facility] Comment on above: Performed By: #### B PABLO ####[facility] [address]mvsobcc[address] [place], [place] [address]Dr. Elba Anthony BCIDHD4 Negative [facility] Comment on above: Performed By: #### B PABLO ####[facility] Opmtnubxqv5[address] [place] [id number]. Elba Anthony BCIDHD5 YEAST Normal [facility] Comment on above: Performed By: #### B PABLO ####[facility] [address]yzmq[address] [place], [place] [address]Dr. Elba Anthony BCIDHD6 SEE BELOW [facility] Comment on above: Result Comment: Note : All genus and species BCID [employer] results will be verified post subculturing via Maldi-Tof MS testing methodology. Performed By: #### B PABLO ####[facility] Uikatjrcud6[address] [place], [place] [address]Dr. Elba Anthony Bottle Set: Set 1 [facility] Comment on above: Performed By: #### B PABLO ####[facility] Qeflkseqjm90[address] [place], [place] [address]Dr. Elba Anthony Bottle: Aerobic [facility] Comment on above: Performed By: #### B PABLO ####[facility] [address]tkiqyrg[address] [place], [place] [address]Dr. Elba [facility] Lorelei albicans Not detected Normal [facility] Comment on above: Performed By: #### B PABLO ####[facility] Ggkpkmhbvo[address] [place], [place] [address]Dr. siobhan [facility] Lorelei glabrata Not detected Normal [facility] Comment on above: Performed By: #### B PABLO ####[facility] Ukaypcmrai5[address] [place], [place] [address]Dr. siobhan [facility] Lorelei Krusei Not detected Normal [facility] Comment on above: Performed By: #### B PABLO ####[facility] [address]afhktbg[address] [place], [place] [address]Dr. Elba [facility] Lorelei Parapsilosis Not detected Normal [facility] Comment on above: Performed By: #### B PABLO ####[facility] Gaagnrmokm[address] [place], [place] [address]Dr. siobhan [facility] Lorelei Tropicalis Not detected Normal [facility] Comment on above: Performed By: #### B PABLO ####[facility] Qenajieqad[address] [place], [place] [address]Dr. siobhan [facility] E. Cloacae complex Not detected [facility] Comment on above: Performed By: #### B PABLO ####[facility] [address]pbzrpx[address] [place] [id number]. Nereydalan Anthony Enterobacteriaceae Not detected Normal [facility] Comment on above: Performed By: #### B PABLO ####[facility] Efniekxlmr[address] [place] [address]Dr. Elba Anthony Enterococcus Not detected Normal [facility] Comment on above: Performed By: #### B PABLO ####[facility] [address]miaprbicj[address] [place] [address]Dr. Elba Anthony Escheria coli Not detected Normal [facility] Comment on above: Performed By: #### B PABLO ####[facility] Jdziskpxpl[address] [place], [place] [address]Dr. Nereydasiobhan Anthony K. oxytoca Not detected Normal [facility] Comment on above: Performed By: #### B PABLO ####[facility] Rtdhtrfubx050[address] [place], [place] [address]Dr. Elba Anthony K. pneumoniae Not detected Normal [facility] Comment on above: Performed By: #### B PABLO ####[facility] Zjdcfdppls0137[address] [place], [place] [address]Dr. Elba Anthony KPC Resistant Gene Not detected Normal [facility] Comment on above: Performed By: #### B PABLO ####[facility] Ddzutnvuwr2864[address] [place], [place] [address]Dr. Elba Anthony List. monocytogenes Not detected Normal [facility] Comment on above: Performed By: #### B PABLO ####[facility] Uztgxwkfeb9[address] [place], [place] [address]Dr. Nereydasiobhan Anthony mecA Resistant Gene Not Applicable Normal [facility] Comment on above: Performed By: #### B PABLO ####[facility] Gftqpmabxd7588[address] [place], [place] [address]Dr. Nereydasiobhan Anthony Proteus Not detected Normal [facility] Comment on above: Performed By: #### B PABLO ####[facility] Fjqopugcoi1381[address] [place], [place] [address]Dr. Elba Anthony Pseud. aeruginosa Detected Critically abnormal [facility] Comment on above: Performed By: #### B PABLO ####[facility] Zkqrbmbzij8[address] [place], [place] [address]Dr. Elba Anthony Seratia marcescens Not detected Normal [facility] Comment on above: Performed By: #### B PABLO ####[facility] Ncmkqgqifk[address] [place], [place] [address]Dr. Elba Anthony Site: Left hand Normal [facility] Comment on above: Performed By: #### B PABLO ####[facility] Qffrbdvapm499[address] [place], [place] [address]Dr. Elba Anthony Staph. aureus Not detected Normal [facility] Comment on above: Performed By: #### B PABLO ####[facility] Ixierjtsuj[address] [place], [place] [address]Dr. Elba Anthony Staphylococcus Not detected Normal [facility] Comment on above: Performed By: #### B PABLO ####[facility] Fyyjanpian8[address] [place], [place] [address]Dr. Elba Anthony Strep. agalactiae Not detected Normal [facility] Comment on above: Performed By: #### B PABLO ####[facility] Dfzutzkltm39[address] [place], [place] [address]Dr. Elba Anthony Strep. pneumoniae Not detected Normal [facility] Comment on above: Performed By: #### B PABLO ####[facility] Kquivmfofq06[address] [place], [place] [address]Dr. Elba Anthony Strep. pyogenes Not detected Normal [facility] Comment on above: Performed By: #### B PABLO ####[facility] Telljwuopr1823[address] [place], [place] [address]Dr. Nereydasiobhan Anthony Streptococcus Not detected Normal [facility] Comment on above: Performed By: #### B PABLO ####[facility] Hnpolzlzys06[address] [place], [place] [address]Dr. Elba Anthony Soledad/B Resist. Gene Not Applicable Normal [facility] Comment on above: Performed By: #### B PABLO ####[facility] Nqsjwouygu59[address] [place], [place] [address]Dr. Elba Anthony BNPon 12-12-2021 Natriuretic peptide B (Bld) [Mass/Vol] 38643.0 pg/mL Critically high <=900.0 [facility] Comment on above: Result Comment: test repeated critical value verified Performed By: #### B MP, BNP, HSTROPN ####[facility] [address] [place] [id number]. Elba Anthony CARDIAC FADY 3-6on 2 CK [Catalytic activity/Vol] 29 U/L Critically low 55-170 [facility] Comment on above: Performed By: #### C MREP ####[facility] Lanqkwwftq[address] [place] [address]Dr. Elba Anthony CK.MB [Mass/Vol] 1.26 ng/mL Normal <=2.37 [facility] Comment on above: Performed By: #### C MREP ####[facility] Txqkbeyvjy[address] [place], [place] [address]Dr. Elba Anthony HSTROP 27.4 pg/mL Normal 4.0-42.2 [facility] Comment on above: Result Comment: CUT- OFF POINTS HAVE BEEN ESTABLISHED BASED ON THE FOURTH UNIVERSAL DEFINITIONS OF MYOCARDIALINFARCTION. THE UPPER REFERENCE LIMIT (URL) OF TROPONIN, DEFINED THE 99TH PERCENTILE OFcTnI DISTRIBUTION IN A REFERENCE POPULATION, HAS BEEN CONFIRMED THE DECISION THRESHOLDFOR OR DIAGNOSIS. Performed By: #### C MREP ####[facility] Ahmkkdjbwj9[address] [place], [place] [address]Dr. Elba Anthony CK [Catalytic activity/Vol] 23 U/L Critically low 55-170 [facility] Comment on above: Performed By: #### C MREP ####[facility] Hnaiayvncy8[address] [place] [id number]. Elba Anthony CK.MB [Mass/Vol] 1.41 ng/mL Normal <=2.37 [facility] Comment on above: Performed By: #### C MREP ####[facility] Pb[address]ys[address] [place], [place] [address]Dr. Elba Anthony HSTROP 27.2 pg/mL Normal 4.0-42.2 [facility] Comment on above: Result Comment: CUT- OFF POINTS HAVE BEEN ESTABLISHED BASED ON THE FOURTH UNIVERSAL DEFINITIONS OF MYOCARDIALINFARCTION. THE UPPER REFERENCE LIMIT (URL) OF TROPONIN, DEFINED THE 99TH PERCENTILE OFcTnI DISTRIBUTION IN A REFERENCE POPULATION, HAS BEEN CONFIRMED THE DECISION THRESHOLDFOR OR DIAGNOSIS. Performed By: #### C MREP ####[facility] [address]pxteqrf[address] [place] [address]Dr. Elba Anthony CBC W MANUAL DIFFon 12-13-19 22 ATYPICAL LYMPH # Normal [facility] Comment on above: Performed By: #### C SULEIMANMAN ####[facility] Fangaalpau[address] [place], [place] [address]Dr. Elba Anthony ATYPICAL LYMPH % Normal [facility] Comment on above: Performed By: #### C ADALGISA ####[facility] Zbjadlkuue99[address] [place], [place] [address]Dr. Elba Anthony BAND # Normal 0.0-0.3 [facility] Comment on above: Performed By: #### C ADALGISA ####[facility] Echukyxiuv[address] [place], [place] [address]Dr. Yisiobhan Anthony BAND % Normal 0-5 [facility] Comment on above: Performed By: #### C ADALGISA ####[facility] Xrnfbuzdon74[address] [place], [place] [address]Dr. Elba Anthony BASOM # 0.00 103/ul Normal 0.00-0.10 [facility] Comment on above: Performed By: #### C ADALGISA ####[facility] Nomnyhzlkd[address] [place], [place] [address]Dr. Elba Anthony BASOM % 0.0 % Critically low 0.2-2.0 [facility] Comment on above: Performed By: #### C ADALGISA ####[facility] [address]fwnz[address] [place] [address]Dr. Elba Anthony BLAST # Normal [facility] Comment on above: Performed By: #### C SULEIMANMAN ####[facility] Mxrzzoanku23[address] [place], [place] [address]Dr. Elba Anthony BLAST % Normal [facility] Comment on above: Performed By: #### C ADALGISA ####[facility] R[address]ht[address] [place], [place] [address]Dr. Elba Anthony CORRECTED WBC Normal 4.0-11.0 [facility] Comment on above: Performed By: #### C ADALGISA ####[facility] Xl[address]nsl[address] [place] [id number] Anthony EOS # 0.00 103/ul Normal 0.00-0.70 [facility] Comment on above: Performed By: #### C ADALGISA ####[facility] Xpopshfwlj12[address] [place] [id number]. Elba Anthony EOS% 0.0 % Critically low 0.9-7.0 [facility] Comment on above: Performed By: #### C ADALGISA ####[facility] F[address]dvboyfc[address] [place] [address]Dr. Elba Anthony HCT 34.1 % Critically low 42.0-54.0 [facility] Comment on above: Performed By: #### C ADALGISA ####[facility] W[address]xcjefq[address] [place] [address]Dr. Elba Anthony HGB 10.1 g/dl Critically low 14.0-18.0 [facility] Comment on above: Performed By: #### C ADALGISA ####[facility] [address]zqfyqbrkc[address] [place] [address]Dr. Elba Anthony LYMPHM # 0.32 103/ul Critically low 1.20-3.80 [facility] Comment on above: Performed By: #### C ADALGISA ####[facility] Xzsasswcvf35[address] [place] [id number]. Elba Anthony LYMPHM% 3.0 % Critically low 20.5-60.0 [facility] Comment on above: Performed By: #### C ADALGISA ####[facility] Hufzohbmzx8[address] [place] [id number]. Elba Anthony MCH 25.5 pg Critically low 25.9-34.0 [facility] Comment on above: Performed By: #### C ADALGISA ####[facility] Dq[address]ljzmbej[address] [place] [address]Dr. Elba Anthony MCHC 29.6 g/dl Critically low 29.9-35.2 [facility] Comment on above: Performed By: #### C ADALGISA ####[facility] F[address]rwroxxl[address] [place] [address]Dr. Elba Anthony MCV 86.1 fL Normal 80.0-94.0 [facility] Comment on above: Performed By: #### C ADALGISA ####[facility] Xcvqcqpait3264 [place] [id number]. Elba Anthony METAMYELOCYTE # Normal [facility] Comment on above: Performed By: #### C ADALGISA ####[facility] Nfdkrywgfm2502 [place] [id number]. Elba Anthony METAMYELOCYTE % Normal [facility] Comment on above: Performed By: #### C ADALGISA ####[facility] Fujjzfxrcs[address] [place], [place] [address]Dr. Elba Anthony MONOM# 0.11 103/ul Critically low 0.30-0.80 [facility] Comment on above: Performed By: #### C ADALGISA ####[facility] Srsjibsbbe7206 [place] [id number]. Elba Anthony MONOM% 1.0 % Critically low 1.7-12.0 [facility] Comment on above: Performed By: #### C ADALGISA ####[facility] Uvalxizgmw0333 [place] [id number]. Elba Anthony MPV 10.4 fL Normal 9.5-13.5 [facility] Comment on above: Performed By: #### C ADALGISA ####[facility] Vmohhxifux2803 [place] [id number]. Elba Anthony MYELOCYTE # Normal [facility] Comment on above: Performed By: #### C ADALGISA ####[facility] M[address]nicjmp[address] [place], [place] [address]Dr. Elba Anthony MYELOCYTE % Normal [facility] Comment on above: Performed By: #### C ADALGISA ####[facility] [address]ou[address] [place], [place] [address]Dr. Elba Anthony NRBC Normal [facility] Comment on above: Performed By: #### C ADALGISA ####[facility] Oeedacppuq88[address] [place] [id number]. Elba Anthony OVALOCYTES SLIGHT Normal [facility] Comment on above: Performed By: #### C ADALGISA ####[facility] Ujajgntwlu52[address] [place] [id number]. Elba Anthony PLT 154 103/ul Normal 150-450 [facility] Comment on above: Performed By: #### C ADALGISA ####[facility] Ahstyieaze7[address] [place] [id number]. Elba Anthony POIKILOCYTOSIS 1+ Normal [facility] Comment on above: Performed By: #### C ADALGISA ####[facility] Ixicnptsvq[address] [place] [address]Dr. Elba Anthony RBC 3.96 106/ul Critically low 4.70-6.10 [facility] Comment on above: Performed By: #### C ADALGISA ####[facility] Epvjmxrsmt4[address] [place] [address]Dr. Elba Anthony RDW 19.0 % Critically high 11.0-15.0 [facility] Comment on above: Performed By: #### C ADALGISA ####[facility] Jmtvqqtpfy7[address] [place] [address]Dr. Elba Anthony SEG # 10.37 103/ul Critically high 1.40-6.50 [facility] Comment on above: Performed By: #### C ADALGISA ####[facility] Yelobrtpux2857 [place] [id number]. Elba Anthony SEG % 96.0 % Critically high 43.0-75.0 [facility] Comment on above: Performed By: #### C ADALGISA ####[facility] Yldghdacil[address] [place], [place] [address]Dr. Elba Anthony TEAR DROP CELLS SLIGHT Normal [facility] Comment on above: Performed By: #### C ADALGISA ####[facility] Tzwasrgugw[address] [place], [place] [address]Dr. Elba Anthony WBC 10.8 103/ul Normal 4.0-11.0 [facility] Comment on above: Performed By: #### C BCMAN ####[facility] Swwexuyjxb[address] [place] [address]Dr. Elba Anthony CRPon 12-12-2021 CRP 3.1 mg/dL Critically high <=1.0 [facility] Comment on above: Performed By: #### C RP, TSH, T4 ####[facility] Svbsphbedi[address] [place] [address]Dr. Elba Anthony CULTURE BLOODon 12-12-2021 Microscopic examination of blood, culture Culture Observations: Positive blood culture. Aerobic & anaerobic bottles. BCID=Pseudomonas aeruginosa Culture Observations: Sending to [facility] for workup. Normal [facility] Comment on above: Performed By: #### B LDCX2 ####[facility] Urmnssijqw[address] [place] [address]Dr. Elba Anthony Microscopic examination of blood, culture Culture Observations: Positive blood culture. Aerobic bottle. BCID= Pseudomonas aeruginosa. Culture Observations: Sending to [facility] for workup. Culture Observations: NO GROWTH AT 5 DAYS. ANAEROBIC BOTTLE Normal [facility] Comment on above: Performed By: #### B LDCX1 ####[facility] C[address]umtqiab[address] [place], [place] [address]Dr. Elba Anthony Covid-19 PCR (CVDTB)on SARS-CoV-2 (COVID-19) RNA ELIZABETH+probe Ql (Unsp spec) Not detected Normal NOT DETECTED [facility] Comment on above: Result Comment: When diagnostic testing is negative, the possibility of a false negative should be considered inthe context of a patient's recent exposures and the presence of clinical signs and symptomsconsistent with SARS-CoV-2.This test is not yet approved or cleared by the [place] Food and Drug Administration (FDA).This test was developed by [employer], [place], [place]. The performance characteristics ofthis test were validated by The [facility]. The results are not intended to beused as the sole means for clinical diagnosis or patient management decisions. The [facility] is authorized under Clinical Laboratory Improvement Amendments (CLIA) to perform high-complexity testing.This test is not yet approved or cleared by the [place] FDA. When there are no FDA-approved or cleared tests available, and other criteria are met, FDA can make tests available under an emergency access mechanism called an Emergency Use Authorization (EUA). The EUA for this test is supported by the [place] of Health and Human Service's declaration that [...] be used). Performed By: #### C VDTBH ####[facility] Aimyitsoaj[address] [place], [place] [address]Dr. Elba Antohny LACTATE/LACTIC ACIDon 2021 Lactate [Moles/Vol] 2.0 mmol/L Normal 0.7-2.0 [facility] Comment on above: Performed By: #### L ACT ####[facility] Vevpqogsmd11[address] [place], [place] [address]Dr. Elba Anthony Lactate [Moles/Vol] 1.7 mmol/L Normal 0.7-2.0 [facility] Comment on above: Performed By: #### L ACT ####[facility] Iwkqlzwqdw16[address] [place], [place] [address]Dr. Elba Anthony PROF CHEM 8 (BAS METB)on Anion gap [Moles/Vol] 14.7 mmol/L Normal [facility] Comment on above: Performed By: #### B MP, BNP, HSTROPN ####[facility] Frbqylevxp[address] [place], [place] [address]Dr. Elba Anthony Calcium [Mass/Vol] 8.6 mg/dL Normal 8.5-10.1 [facility] Comment on above: Performed By: #### B MP, BNP, HSTROPN ####[facility] Haiaiooahb[address] [place], [place] [address]Dr. Elba Anthony Chloride [Moles/Vol] 102 mmol/L Normal 98-107 [facility] Comment on above: Performed By: #### B MP, BNP, HSTROPN ####[facility] Nsxiopobmr[address] [place] [address]Dr. Elba Anthony CO2 [Moles/Vol] 25.4 mmol/L Normal 22.0-30.0 [facility] Comment on above: Performed By: #### B MP, BNP, HSTROPN ####[facility] Qfflvustfv0437 [place] [address]Dr. Elba Anthony Creatinine [Mass/Vol] 2.29 mg/dL Critically high 0.66-1.25 [facility] Comment on above: Performed By: #### B MP, BNP, HSTROPN ####[facility] Hordlyhgfk[address] [place], [place] [address]Dr. Elba Anthony EGFR-AF SOMALI 35 mL/min/1.73m2 Critically low >=60 [facility] Comment on above: Performed By: #### B MP, BNP, HSTROPN ####[facility] [address]pncelgqcj[address] [place], [place] [address]Dr. Elba Anthony EGFR-NON AF SOMALI 28 mL/min/1.73m2 Critically low >=60 [facility] Comment on above: Performed By: #### B MP, BNP, HSTROPN ####[facility] Z[address]ycfwkzl[address] [place], [place] [address]Dr. Elba Anthony Glucose [Mass/Vol] 130 mg/dL Critically high 74-106 [facility] Comment on above: Performed By: #### B MP, BNP, HSTROPN ####[facility] Nax[address] [place], [place] [address]Dr. Elba Anthony Potassium [Moles/Vol] 4.1 mmol/L Normal 3.4-5.0 [facility] Comment on above: Performed By: #### B MP, BNP, HSTROPN ####[facility] Irseneewpk[address] [place], [place] [address]Dr. Elba Anthony Sodium [Moles/Vol] 138 mmol/L Normal 137-145 [facility] Comment on above: Performed By: #### B MP, BNP, HSTROPN ####[facility] Evwuesgcez[address] [place] [address]Dr. Elba Anthony Urea nitrogen [Mass/Vol] 43.0 mg/dL Critically high 7.0-18.0 [facility] Comment on above: Performed By: #### B MP, BNP, HSTROPN ####[facility] Fthwcjzfkn[address] [place] [address]Dr. Elba Anthony Urea nitrogen/Creatinine [Mass ratio] 18.8 mg/mg Normal [facility] Comment on above: Performed By: #### B MP, BNP, HSTROPN ####[facility] Rmdgssxbgh5[address] [place] [address]Dr. Elba Anthony T4on 12-12-2021 T4 [Mass/Vol] 11.10 ug/dL Critically high 5.53-11.00 [facility] Comment on above: Performed By: #### C RP, TSH, T4 ####[facility] H[address]jcl[address] [place], [place] [address]Dr. Elba Anthony TROPONIN, HIGH SENSITIVITYon 12-12-2021 HSTROP 26.2 pg/mL Normal 4.0-42.2 [facility] Comment on above: Result Comment: CUT- OFF POINTS HAVE BEEN ESTABLISHED BASED ON THE FOURTH UNIVERSAL DEFINITIONS OF MYOCARDIALINFARCTION. THE UPPER REFERENCE LIMIT (URL) OF TROPONIN, DEFINED THE 99TH PERCENTILE OFcTnI DISTRIBUTION IN A REFERENCE POPULATION, HAS BEEN CONFIRMED THE DECISION THRESHOLDFOR OR DIAGNOSIS. Performed By: #### B MP, BNP, HSTROPN ####[facility] [address] [place] [address]Dr. Elba Anthony TSHon 12-12-2021 TSH 1.233 uIU/mL Normal 0.470-4.680 [facility] Comment on above: Performed By: #### C RP, TSH, T4 ####[facility] [address]ct[address] [place] [address]Dr. Elba Anthony TSH RANGE SEE BELOW Normal [facility] Comment on above: Result Comment: <0.3 4 UIU/ml HYPERTHYROID 0.34-5.60 UIU/ml EUTHYROID >5.60 UIU/ml HYPOTHYROID Performed By: #### C RP, TSH, T4 ####[facility] M[address]kn[address]2517 [place], [place] [address]Yw. Elba Anthony US ARLIN DOP LEG RTon 12-13-19 22 US ARLIN DOP LEG RT Normal [facility] XR TIB_FIB RT 2Von 2 XR TIB_FIB RT 2V Normal [facility] APTTon 08-01-2021 aPTT Coag (Bld) [Time] 34.5 s Normal 25.0-35.0 Th e [facility] Comment on above: Result Comment: [...] PURPOSE. Performed By: #### 5 0103 #### [facility] [address] [place] [address], [place] BASIC METABOLIC PANELon 11-2 Calcium [Mass/Vol] 8.6 mg/dL Normal 8.6-10.3 [facility] Comment on above: Order Comment: No: D o not add to previous draw Performed By: #### 3 2044 #### [facility] [address] [place] [address], [place] Chloride [Moles/Vol] 108 mmol/L High 98-107 [facility] Comment on above: Order Comment: No: D o not add to previous draw Performed By: #### 3 2044 #### [facility] [address] [place] [address], [place] CO2 [Moles/Vol] 20 mmol/L Low 21-31 [facility] Comment on above: Order Comment: No: D o not add to previous draw Performed By: #### 3 2044 #### [facility] [address] [place] [address], [place] Creatinine [Mass/Vol] 2.66 mg/dL High 0.70-1.30 [facility] Comment on above: Order Comment: No: D o not add to previous draw Performed By: #### 3 2044 #### [facility] [address] [place] [address], [place] eGFR- 29 ml/min/1.73sq m Abnormal >60 [facility] Comment on above: Order Comment: No: D o not add to previous draw Performed By: #### 3 2044 #### [facility] [address] [place] [address], [place] eGFR- non- 24 ml/min/1.73sq m Abnormal >60 [facility] Comment on above: Order Comment: No: D o not add to previous draw Performed By: #### 3 2044 #### [facility] [address] [place] [address], [place] Glucose [Mass/Vol] 125 mg/dL High 70-100 [facility] Comment on above: Order Comment: No: D o not add to previous draw Performed By: #### 3 2044 #### [facility] [address] [place] [address], [place] Potassium [Moles/Vol] 4.4 mmol/L Normal 3.5-5.1 [facility] Comment on above: Order Comment: No: D o not add to previous draw Performed By: #### 3 2044 #### [facility] [address] [place] [address], [place] Sodium [Moles/Vol] 138 mmol/L Normal 136-145 [facility] Comment on above: Order Comment: No: D o not add to previous draw Performed By: #### 3 2044 #### [facility] [address] [place] [address], [place] Urea nitrogen [Mass/Vol] 54 mg/dL High 7-25 [facility] Comment on above: Order Comment: No: D o not add to previous draw Performed By: #### 3 2045 #### [facility] [address] [place] [address], [place] Calcium [Mass/Vol] 8.5 mg/dL Low 8.6-10.3 [facility] Comment on above: Order Comment: No: D o not add to previous draw Performed By: #### 5 3 #### [facility] [address] [place] [address], [place] Chloride [Moles/Vol] 107 mmol/L Normal 98-107 [facility] Comment on above: Order Comment: No: D o not add to previous draw Performed By: #### 5 3 #### [facility] [address] [place] [address], [place] CO2 [Moles/Vol] 23 mmol/L Normal 21-31 [facility] Comment on above: Order Comment: No: D o not add to previous draw Performed By: #### 5 3 #### [facility] [address] [place] [address], [place] Creatinine [Mass/Vol] 2.86 mg/dL High 0.70-1.30 [facility] Comment on above: Order Comment: No: D o not add to previous draw Performed By: #### 5 3 #### [facility] [address] [place] [address], [place] eGFR- 27 ml/min/1.73sq m Abnormal >60 [facility] Comment on above: Order Comment: No: D o not add to previous draw Performed By: #### 5 0103 #### [facility] [address] [place] [address], [place] eGFR- non- 22 ml/min/1.73sq m Abnormal >60 [facility] Comment on above: Order Comment: No: D o not add to previous draw Performed By: #### 5 0103 #### [facility] [address] [place] [address], [facility] Glucose [Mass/Vol] 114 mg/dL High 70-100 [facility] Comment on above: Order Comment: No: D o not add to previous draw Performed By: #### 5 0103 #### [facility] [address] [place] [id number], [facility] Potassium [Moles/Vol] 4.5 mmol/L Normal 3.5-5.1 [facility] Comment on above: Order Comment: No: D o not add to previous draw Performed By: #### 5 0103 #### [facility] [address] [place] [address], [facility] Sodium [Moles/Vol] 138 mmol/L Normal 136-145 [facility] Comment on above: Order Comment: No: D o not add to previous draw Performed By: #### 5 0103 #### [facility] [address] [place] [address], [facility] Urea nitrogen [Mass/Vol] 58 mg/dL High 7-25 [facility] Comment on above: Order Comment: No: D o not add to previous draw Performed By: #### 5 0103 #### [facility] [address] [place] [address], [facility] CBC W/DIFFon 08-01-2021 ABS IMM GRANS 0.0 10*3/uL Normal 0.0-0.2 [facility] Comment on above: Order Comment: No: D o not add to previous draw Performed By: #### 5 0103 #### [facility] [address] [place] [address], [facility] ABS NEUTROPHILS 5.7 10*3/uL Normal 1.6-7.6 [facility] Comment on above: Order Comment: No: D o not add to previous draw Performed By: #### 5 0103 #### [facility] [address] [place] [address], [facility] Basophils (Bld) [#/Vol] 0.0 10*3/uL Normal 0.0-0.2 [facility] Comment on above: Order Comment: No: D o not add to previous draw Performed By: #### 5 0103 #### [facility] [address] [place] [address], [facility] Basophils/100 WBC (Bld) 0.4 % Normal 0.0-1.0 [facility] Comment on above: Order Comment: No: D o not add to previous draw Performed By: #### 5 0103 #### [facility] [address] [place] [address], [facility] Eosinophils (Bld) [#/Vol] 0.0 10*3/uL Normal 0.0-0.5 [facility] Comment on above: Order Comment: No: D o not add to previous draw Performed By: #### 5 0103 #### [facility] [address] [place] [id number], [facility] Eosinophils/100 WBC (Bld) 0.6 % Normal 0.0-6.0 [facility] Comment on above: Order Comment: No: D o not add to previous draw Performed By: #### 5 0103 #### [facility] [address] [place] [address], [facility] Erythrocyte distribution width (RBC) [Ratio] 14.8 % Normal 11.5-15.0 [facility] Comment on above: Order Comment: No: D o not add to previous draw Performed By: #### 5 0103 #### [facility] [address] [place] [id number], [facility] Hematocrit (Bld) [Volume fraction] 37.0 % Low 39.0-50.0 [facility] Comment on above: Order Comment: No: D o not add to previous draw Performed By: #### 5 0103 #### [facility] [address] [place] [address], [facility] Hemoglobin (Bld) [Mass/Vol] 11.4 g/dL Low 13.0-17.0 [facility] Comment on above: Order Comment: No: D o not add to previous draw Performed By: #### 5 0103 #### [facility] [address] [place] [id number], [facility] IMMATURE GRANS 0.4 % Normal 0.0-1.0 [facility] Comment on above: Order Comment: No: D o not add to previous draw Performed By: #### 5 0103 #### [facility] [address] [place] [address], [facility] Lymphocytes (Bld) [#/Vol] 0.4 10*3/uL Low 1.2-4.0 [facility] Comment on above: Order Comment: No: D o not add to previous draw Performed By: #### 5 0103 #### [facility] [address] [place] [address], [facility] Lymphocytes/100 WBC (Bld) 5.6 % Low 20.0-45.0 [facility] Comment on above: Order Comment: No: D o not add to previous draw Performed By: #### 5 0103 #### [facility] [address] [place] [id number], [facility] MCH (RBC) [Entitic mass] 27.9 pg Normal 27.0-33.0 [facility] Comment on above: Order Comment: No: D o not add to previous draw Performed By: #### 5 0103 #### [facility] [address] [place] [id number], [facility] MCHC (RBC) [Mass/Vol] 30.8 g/dL Low 32.0-35.0 [facility] Comment on above: Order Comment: No: D o not add to previous draw Performed By: #### 5 0103 #### [facility] [address] [place] [id number], [facility] MCV (RBC) [Entitic vol] 90.5 fL Normal 82.0-98.0 [facility] Comment on above: Order Comment: No: D o not add to previous draw Performed By: #### 5 0103 #### [facility] [address] [place] [id number], [facility] Monocytes (Bld) [#/Vol] 0.6 10*3/uL Normal 0.1-1.0 [facility] Comment on above: Order Comment: No: D o not add to previous draw Performed By: #### 5 0103 #### [facility] [address] [place] [address], [facility] MONOS 8.7 % Normal 5.0-12.0 [facility] Comment on above: Order Comment: No: D o not add to previous draw Performed By: #### 5 0103 #### [facility] [address] [place] [address], [facility] Neutrophils/100 WBC (Bld) 84.3 % High 40.0-72.0 [facility] Comment on above: Order Comment: No: D o not add to previous draw Performed By: #### 5 0103 #### [facility] [address] [facility] [address], [facility] Nucleated RBC/100 WBC (Bld) [Ratio] 0 % Normal 0-0 [facility] Comment on above: Order Comment: No: D o not add to previous draw Performed By: #### 5 0103 #### [facility] [address] [place] [id number], [facility] PLAT CNT 144 10*3/uL Low 150-400 [facility] Comment on above: Order Comment: No: D o not add to previous draw Performed By: #### 5 0103 #### [facility] [address] [place] [id number], [facility] RBC (Bld) [#/Vol] 4.09 10*6/uL Low 4.20-5.70 [facility] Comment on above: Order Comment: No: D o not add to previous draw Performed By: #### 5 0103 #### [facility] [address] WBC (Bld) [#/Vol] 6.75 10*3/uL Normal 4.00-10.60 [facility] Comment on above: Order Comment: No: D o not add to previous draw Performed By: #### 5 0103 #### [facility] [address] [place], [place] [id number] [place] [address] CHEST AND LATERALon 08-01-20 CHEST AND LATERAL [facility] Department of Radiology [address] [place] [id number] Patient Name: MAN PATEL : 1950 [...] pneumothorax. Electronically signed: Dilcia Hernandez. Transcribed by: [email or web address], User Resident: Electronically Signed by: IDLCIA HERNANDEZ @ 08/01/2021 08:57 AM Normal [facility] Comment on above: Order Comment: Check Pacemaker/AICD Lead Position, Chest X-ray PA \EANDE\ LAT in Dept ;DO NOT lift affected arm above shoulder. S/P pacemaker/ICD implant. Verify lead placement CPKon 08-01-2021 CK [Catalytic activity/Vol] 576 U/L High 30-223 [facility] Comment on above: Performed By: #### 5 0103 #### [place] [address], [facility] Cardiovascular Lab Reporton 08-01-2021 Cardiovascular Lab Report [facility] MR #: [id number] Department of Physician: Inocencio Franks M.D. Medicine Service Date: 07/31/2021 Division of Birthdate: 1950 Cardiology Room #: 5AB [id number] Adult Cardiovascular Services [place] [address] Cardiovascular Laboratory Report INDICATION FOR PERMANENT PACEMAKER [...] P Inocencio Franks M.D. Date Dict: 07/31/2021/04:01 Vale/Inocencio Franks M.D. Date Trans: 08/01/2021 05:31 A/surekha [id number] Normal [facility] MAGNESIUM BLOODon 08-01-2021 Magnesium [Mass/Vol] 2.2 mg/dL Normal 1.9-2.7 [facility] Comment on above: Order Comment: No: D o not add to previous draw Performed By: #### 5 0103 #### [facility] [address] PHOSPHORUS BLOODon 1 Phosphate [Mass/Vol] 2.9 mg/dL Normal 2.5-5.0 [facility] Comment on above: Order Comment: No: D o not add to previous draw Performed By: #### 5 0103 #### [facility] [address] PROTHROMBIN TIMEon 1 INR Coag (PPP) [Relative time] 1.54 {INR} High 0.91-1.16 [facility] Comment on above: Order Comment: No: D o not add to previous draw Result Comment: [facility] P RECOMMENDED INR FOR WARFARIN THERAPY --------- ------- CONDITION INR PROPHYLAXIS OF VENOUS THROMBOSIS 2-3 (HIGH-RISK SURGERY) TREATMENT OF VENOUS THROMBOSIS 2-3 TREATMENT OF PULMONARY EMBOLISM 2-3 PREVENTION OF SYSTEMIC EMBOLISM: 2-3 ACUTE MYOCARDIAL INFARCTION TISSUE HEART VALVES VALVULAR HEART DISEASE ATRIAL FIBRILLATION RECURRENT SYSTEMIC EMBOLISM MECHANICAL HEART VALVE 2.5-3.5 FROM: ORAL ANTICOAGULANTS. MECHANISM OF ACTION, CLINICAL EFFECTIVENESS, AND OPTIMAL THERAPEUTIC RANGE. CHEST 1995;108:231S-246S. Performed By: #### 5 0103 #### [facility] [address] [place] [address], [facility] PT Coag (PPP) [Time] 18.4 s High 12.3-14.8 [facility] Comment on above: Order Comment: No: D o not add to previous draw Result Comment: ALL RESULTS MUST BE INTERPRETED WITH RESPECT TO BLOOD DRAWING ARTIFACT OR DILUTION ERROR OF ANTICOAGULANT AT THE TIME OF SAMPLING. Performed By: #### 5 0103 #### [facility] [address] [place] [address], [facility] INR Coag (PPP) [Relative time] 1.68 {INR} High 0.91-1.16 [facility] Comment on above: Result Comment: [facility] P RECOMMENDED INR FOR WARFARIN THERAPY --------- ------- CONDITION INR PROPHYLAXIS OF VENOUS THROMBOSIS 2-3 (HIGH-RISK SURGERY) TREATMENT OF VENOUS THROMBOSIS 2-3 TREATMENT OF PULMONARY EMBOLISM 2-3 PREVENTION OF SYSTEMIC EMBOLISM: 2-3 ACUTE MYOCARDIAL INFARCTION TISSUE HEART VALVES VALVULAR HEART DISEASE ATRIAL FIBRILLATION RECURRENT SYSTEMIC EMBOLISM MECHANICAL HEART VALVE 2.5-3.5 FROM: ORAL ANTICOAGULANTS. MECHANISM OF ACTION, CLINICAL EFFECTIVENESS, AND OPTIMAL THERAPEUTIC RANGE. CHEST 1995;108:231S-246S. Performed By: #### 5 0103 #### [facility] [address] PT Coag (PPP) [Time] 19.7 s High 12.3-14.8 [facility] Comment on above: Result Comment: ALL RESULTS MUST BE INTERPRETED WITH RESPECT TO BLOOD DRAWING ARTIFACT OR DILUTION ERROR OF ANTICOAGULANT AT THE TIME OF SAMPLING. Performed By: #### 5 0103 #### [facility] 3000 [facility]. [address] URIC ACID BLOODon 08-01-2021 Urate [Mass/Vol] 10.1 mg/dL High 4.4-7.6 [facility] Comment on above: Performed By: #### 5 0103 #### [facility] [address] [facility] BASIC METABOLIC PANELon 07-10 Calcium [Mass/Vol] 7.3 mg/dL Low 8.6-10.3 [facility] Comment on above: Performed By: #### 3 2044 #### [facility] [address] [facility]. [address] Chloride [Moles/Vol] 111 mmol/L High 98-107 [facility] Comment on above: Performed By: #### 3 2044 #### [facility] [address] [place] [address], [place] CO2 [Moles/Vol] 17 mmol/L Low 21-31 [facility] Comment on above: Performed By: #### 3 2044 #### [facility] [address] [place] [address], [place] Creatinine [Mass/Vol] 2.68 mg/dL High 0.70-1.30 [facility] Comment on above: Performed By: #### 3 2044 #### [facility] [address] [place] [address], [place] eGFR- 29 ml/min/1.73sq m Abnormal >60 [facility] Comment on above: Performed By: #### 3 2044 #### [facility] [address] [place] [address], [facility] eGFR- non- 24 ml/min/1.73sq m Abnormal >60 [facility] Comment on above: Performed By: #### 3 2044 #### [facility] [address] [place] [address], [place] Glucose [Mass/Vol] 147 mg/dL High 70-100 [facility] Comment on above: Performed By: #### 3 2044 #### [facility] [address] [place] [address], [place] Potassium [Moles/Vol] 4.4 mmol/L Normal 3.5-5.1 [facility] Comment on above: Performed By: #### 3 2044 #### [facility] [address] [place] [address], [place] Sodium [Moles/Vol] 138 mmol/L Normal 136-145 [facility] Comment on above: Performed By: #### 3 2044 #### [facility] [address] [place] [address], [place] Urea nitrogen [Mass/Vol] 55 mg/dL High 7-25 [facility] Comment on above: Performed By: #### 3 2044 #### [facility] [address] [place] [address], [facility] CBC W/DIFFon 07-31-2021 ABS IMM GRANS 0.0 10*3/uL Normal 0.0-0.2 [facility] Comment on above: Performed By: #### 5 3 #### [facility] [address] [place] [address], [facility] ABS NEUTROPHILS 10.7 10*3/uL High 1.6-7.6 [facility] Comment on above: Performed By: #### 5 102 #### [facility] [address] [place] [address], [facility] Basophils (Bld) [#/Vol] 0.0 10*3/uL Normal 0.0-0.2 [facility] Comment on above: Performed By: #### 5 102 #### [facility] [address] [place] [address], [facility] Basophils/100 WBC (Bld) 0.3 % Normal 0.0-1.0 [facility] Comment on above: Performed By: #### 5 102 #### [facility] [address] [place] [address], [facility] Eosinophils (Bld) [#/Vol] 0.1 10*3/uL Normal 0.0-0.5 [facility] Comment on above: Performed By: #### 5 102 #### [facility] [address] [place] [address], [facility] Eosinophils/100 WBC (Bld) 0.4 % Normal 0.0-6.0 [facility] Comment on above: Performed By: #### 5 102 #### [facility] [address] [place] [address], [facility] Erythrocyte distribution width (RBC) [Ratio] 14.6 % Normal 11.5-15.0 [facility] Comment on above: Performed By: #### 5 0103 #### [facility] [address] [facility] [place] [address], [facility] Hematocrit (Bld) [Volume fraction] 44.3 % Normal 39.0-50.0 [facility] Comment on above: Performed By: #### 5 0103 #### [facility] [address] [place] [address], [facility] Hemoglobin (Bld) [Mass/Vol] 13.6 g/dL Normal 13.0-17.0 [facility] Comment on above: Performed By: #### 5 0103 #### [facility] [address] [place] [address], [facility] IMMATURE GRANS 0.3 % Normal 0.0-1.0 [facility] Comment on above: Performed By: #### 5 0103 #### [facility] [address] [place] [address], [facility] Lymphocytes (Bld) [#/Vol] 0.5 10*3/uL Low 1.2-4.0 [facility] Comment on above: Performed By: #### 5 0103 #### [facility] [address] [place] [address], [facility] Lymphocytes/100 WBC (Bld) 4.1 % Low 20.0-45.0 [facility] Comment on above: Performed By: #### 5 0103 #### [facility] [address] [place] [address], [facility] MCH (RBC) [Entitic mass] 27.6 pg Normal 27.0-33.0 [facility] Comment on above: Performed By: #### 5 3 #### [facility] [address] [facility] [address], [facility] MCHC (RBC) [Mass/Vol] 30.7 g/dL Low 32.0-35.0 [facility] Comment on above: Performed By: #### 102 #### [facility] [address] [place] [address], [facility] MCV (RBC) [Entitic vol] 90.0 fL Normal 82.0-98.0 [facility] Comment on above: Performed By: #### 102 #### [facility] [address] [place] [address], [facility] Monocytes (Bld) [#/Vol] 1.0 10*3/uL Normal 0.1-1.0 [facility] Comment on above: Performed By: #### 102 #### [facility] [address] MONOS 8.3 % Normal 5.0-12.0 [facility] Comment on above: Performed By: #### 5 102 #### [facility] [address] Neutrophils/100 WBC (Bld) 86.6 % High 40.0-72.0 [facility] Comment on above: Performed By: #### 102 #### [facility] [address] [place] [address], [facility] Nucleated RBC/100 WBC (Bld) [Ratio] 0 % Normal 0-0 [facility] Comment on above: Performed By: #### 5 102 #### [facility] [address] [place] [address], [facility] PLAT CNT 175 10*3/uL Normal 150-400 [facility] Comment on above: Performed By: #### 102 #### [facility] [address] [place] [address], [facility] RBC (Bld) [#/Vol] 4.92 10*6/uL Normal 4.20-5.70 [facility] Comment on above: Performed By: #### 102 #### [facility] [address] [place], [place] [id number] [place] [address] WBC (Bld) [#/Vol] 12.36 10*3/uL High 4.00-10.60 [facility] Comment on above: Performed By: #### 5 0103 #### [facility] [address] POC SARS COV2 ANTIGEN NEGATI VEon 07-31-2021 POC SARS COV2 ANTIGEN NEG Negative Normal NEGATIVE [facility] Comment on above: Result Comment: [...] signs and symptoms consistent with COVID-19. [employer] COVID-19 Ag Card is a lateral flow [...] of Accreditation. Performed By: #### 3 1977 ####[facility] [address] PORTABLE CHEST 1 VIEWon 07-10 PORTABLE CHEST 1 VIEW [facility] Department of Radiology [address] [place] [address] Patient Name: MAN PATEL : [...] sternotomy. Electronically signed: Rinku Agrawal. Transcribed by: [email or web address], User Resident: Electronically Signed by: RINKU AGRAWAL @ 07/31/2021 01:03 PM Normal [facility] Comment on above: Order Comment: Evalu ate for Aspiration TROPONIN-Ion 07-31-2021 Troponin I.cardiac [Mass/Vol] 0.07 ng/mL High 0.00-0.04 [facility] Comment on above: Result Comment: REFE RENCE RANGES: 0.00 - 0.04 ng/ml NORMAL 0.05 - 0.50 ng/ml INDETERMINATE > 0.50 ng/ml CONSISTENT WITH AN M.I. Performed By: #### 3 5 #### [facility] [address] [place] [address], [facility] TSH3 WITH REFLEX FT4on 07-31 TSH 3RD GENERATION 1.98 uIU/mL Normal 0.34-5.60 [facility] Comment on above: Performed By: #### 3 5 #### [facility] [address] Vital Signs Date Time Vital Sign Value Performing Clinician Facility 12-23-2023 13:53-0400 Body height 175.26 cm [facility] 12-23-2023 13:53-0400 Body mass index (BMI) [Ratio] 43.8 kg/m2 [facility] 12-23-2023 13:53-0400 Body temperature 96.9 [degF] [facility] 12-23-2023 13:53-0400 Body weight 134.71 kg [facility] 12-23-2023 13:53-0400 Diastolic blood pressure 60 mm[Hg] [facility] [facility] 12-23-2023 13:53-0400 Heart rate 91 /min [facility] 12-23-2023 13:53-0400 Respiratory rate 20 /min [facility] 12-23-2023 13:53-0400 SaO2% (BldA) [Mass fraction] 97 % [facility] 12-23-2023 13:53-0400 Systolic blood pressure 110 mm[Hg] [facility] 05-27-2023 13:00-0400 Body height 175.26 cm [employer] Other [facility] [employer] Other 05-27-2023 13:00-0400 Body mass index (BMI) [Ratio] 41.93 kg/m2 [employer] Other [facility] [employer] Other 05-27-2023 13:00-0400 Body temperature 96.8 [degF] [employer] Other [employer] Other 05-27-2023 13:00-0400 Body weight 128.82 kg [employer] Other [employer] Other 05-27-2023 13:00-0400 Diastolic blood pressure 64 mm[Hg] Aziz Bakhous Other [employer] Other 05-27-2023 13:00-0400 Respiratory rate 20 /min Aziz Bakhous Other [employer] Other 05-27-2023 13:00-0400 SaO2% (BldA) [Mass fraction] 96 % Aziz Bakhous Other [employer] Other 05-27-2023 13:00-0400 Systolic blood pressure 111 mm[Hg] Aziz Bakhous Other [employer] Other 12-10-2022 15:00-0400 Body height 175.26 cm Aziz Bakhous Other [employer] Other 12-10-2022 15:00-0400 Body mass index (BMI) [Ratio] 39.75 kg/m2 Aziz Bakhous Other [employer] Other 12-10-2022 15:00-0400 Body temperature 96.7 [degF] Aziz Bakhous Other [employer] Other 12-10-2022 15:00-0400 Body weight 122.11 kg Aziz Bakhous Other [employer] Other 12-10-2022 15:00-0400 Diastolic blood pressure 70 mm[Hg] Aziz Bakhous Other [employer] Other 12-10-2022 15:00-0400 Respiratory rate 20 /min Aziz Bakhous Other [employer] Other 12-10-2022 15:00-0400 SaO2% (BldA) [Mass fraction] 95 % Aziz Bakhous Other [employer] Other 12-10-2022 15:00-0400 Systolic blood pressure 110 mm[Hg] Aziz Bakhous Other [employer] Other 09-17-2022 11:00-0500 Body height 175.26 cm Aziz Bakhous Other [employer] Other 09-17-2022 11:00-0500 Body mass index (BMI) [Ratio] 39.54 kg/m2 Aziz Bakhous Other [employer] Other 09-17-2022 11:00-0500 Body temperature 96.2 [degF] Aziz Bakhous Other [employer] Other 09-17-2022 11:00-0500 Body weight 121.47 kg Aziz Bakhous Other [employer] Other 09-17-2022 11:00-0500 Diastolic blood pressure 60 mm[Hg] Aziz Bakhous Other [employer] Other 09-17-2022 11:00-0500 Respiratory rate 20 /min Aziz Bakhous Other [employer] Other 09-17-2022 11:00-0500 SaO2% (BldA) [Mass fraction] 97 % Aziz Bakhous Other [employer] Other 09-17-2022 11:00-0500 Systolic blood pressure 102 mm[Hg] Dedra Mendoza Other [facility] [employer] Other 06-27-2022 17:43-0400 Diastolic blood pressure 56 mm[Hg] MD Clulen Costa Work Phone: [facility] 06-27-2022 17:43-0400 Heart rate 78 /min MD Cullen Costa Work Phone: [facility] 06-27-2022 17:43-0400 Respiratory rate 20 /min MD Cullen Costa Work Phone: [facility] 06-27-2022 17:43-0400 SaO2% (BldA) [Mass fraction] 95 % MD Cullen Costa Work Phone: [facility] 06-27-2022 17:43-0400 Systolic blood pressure 109 mm[Hg] MD Cullen Costa Work Phone: [facility] 06-27-2022 14:32-0400 Body height 167.64 cm MD Cullen Costa Work Phone: [facility] 06-27-2022 14:32-0400 Body temperature 97.8 [degF] MD Cullen Costa Work Phone: [facility] 06-27-2022 14:32-0400 Body weight 117.02 kg MD Cullen Costa Work Phone: [facility] Encounters Encounter Date Encounter Type Care Provider Facility Start: 01-27-2024 End: 01-27-2024 ambulatory [facility] Start: 12-23-2023 End: 12-23-2023 ambulatory [facility] Work Phone: Start: 12-23-2023 End: 12-23-2023 Patient encounter procedure [facility] Lukas[facility] Work Phone: Start: 12-17-2023 Non-patient / Non-visit [facility] [employer] Work Phone: Start: 10-20-2023 End: 10-20-2023 ambulatory LI PERRYINGAOSWALDO [facility] Start: 07-28-2023 End: 07-28-2023 ambulatory GAGE SIMPSON [facility] Start: 06-09-2023 End: 06-09-2023 ambulatory Cullen Igor Other [employer] Other Start: 06-09-2023 Telephone encounter Cullen Costa [facility] Start: 05-27-2023 End: 05-27-2023 ambulatory Aziz Bakhous Other [employer] Other Start: 05-27-2023 Office outpatient visit 25 minutes Aziz Bakhous [facility] Start: 05-20-2023 End: 05-20-2023 ambulatory Cullen Costa Other [employer] Other Start: 05-20-2023 Telephone encounter Cullen Igor [facility] Start: 05-07-2023 End: 05-07-2023 ambulatory DIOGO PATRICK [facility] Start: 12-10-2022 End: 12-10-2022 ambulatory Aziz Bakhous Other [employer] Other Start: 12-10-2022 Office outpatient visit 25 minutes Aziz Bakhous [facility] Start: 12-03-2022 End: 12-04-2022 ambulatory AZIZ BAKHOUS Facility:[facility] Start: 11-27-2022 End: 11-28-2022 ambulatory AZIZ BAKHOUS Facility:[facility] Start: 09-17-2022 End: 09-17-2022 ambulatory Aziz Bakhous Other [employer] Other Start: 09-17-2022 Office outpatient ne w 30 minutes Aziz Bakhous [facility] Start: 07-25-2022 End: 07-25-[address] MARK INIGUEZ Facility:[facility] Start: 07-10-2022 End: 07-11-[address] TIGIST IGLESIAS Facility:[facility] Start: 06-27-2022 End: 06-27-2022 Emergency department patient visit Cullen Costa Facility:[facility] Start: 06-27-2022 End: 06-27-2022 Emergency department patient visit MD Cullen Costa Work Phone: [facility] Start: 06-24-2022 End: 06-25-2022 ambulatory GAGE SIMPSON Facility:[facility] Start: 04-29-2022 ambulatory MIS STORM Faci lity:[facility] Start: 04-26-2022 End: 05-03-2022 ambulatory CULLEN COSTA Facility:[facility] Start: 04-25-2022 End: 05-09-2022 Evaluation and management of inpatient TAYLOR HOWARD Facility:[facility] Start: 04-24-2022 End: 04-25-2022 ambulatory VIOLETA VILLAREAL [...] Facility:[facility] Start: 12-11-2021 End: 12-12-2021 ambulatory SHANNAN RODASTERRI Facility:[facility] Start: 07-31-2021 End: 08-01-2021 Evaluation and management of inpatient REFERRED SELF Facility:[facility] Procedures Date Procedure Procedure Detail Performing Clinician Start: 06-27-2022 Plain chest X-ray MD Fito Costa Work Phone: Start: 12-14-2021 Insertion of Infusio n Device into Upper Vein, Percutaneous Approach DEDRA MENDOZA Start: 04-28-2014 General examination of patient Cullen Costa Other SARS Antigen (LFIA) MD Marly Costa Work Phone: Plan of Treatment Date Care Activity Detail Author Start: 06-27-2022 Duplex scan of lower limb veins US venous duplex LE BI [facility] Start: 06-27-2022 US Lower extremity v ein - bilateral [facility] Bacteria identified in Blood by Culture [facility] Patient Education Cellulitis (Sk in Infection), Adult (DC) [facility] Work Phone: Patient referral [facility] Work Phone: Renal function 2000 panel - Serum or Plasma [facility] Payers Date Payer Category Payer Unknown [id number] 1959 Medicare [id number] 1959 Self-pay 1959 Unknown [id number] 1952 Unknown [id number] 2.16.8 40.1.690631.3.579.2.647 1952 Unknown [id number] 2.16.8 40.1.398633.3.579.2.647 1952 Unknown [id number] 2.16.8 40.1.168839.3.579.2.647 1952 Unknown [id number] 2.16.84 0.1.391954.3.579.2.593 1952 Unknown [id number] 2.16.84 0.1.074235.3.579.2.593 1952 Unknown [id number] 2.16.84 0.1.605257.3.579.2.593 1952 Unknown [id number] 2.16.84 0.1.150933.3.579.2.593 1952 Unknown [id number] 2.16.84 0.1.816772.3.579.2.593 1952 Unknown [id number] 2.16.84 0.1.809363.3.579.2.593 1952 Unknown [id number] 2.16.84 0.1.546809.3.579.2.593 1952 Unknown [id number] 2.16.84 0.1.578810.3.579.2.593 1952 Unknown [id number] 2.16.84 0.1.606365.3.579.2.593 1952 Unknown [id number] 2.16.84 0.1.067872.3.579.2.593 1952 Unknown [id number] 2.16.84 0.1.295772.3.579.2.593 1952 Unknown [id number] 2.16.84 0.1.059384.3.579.2.593 1952 Unknown [id number] 2.16.84 0.1.237642.3.579.2.593 1952 Unknown [id number] 2.16.84 0.1.547462.3.579.2.593 1952 Unknown [id number] 2.16.84 0.1.212853.3.579.2.593 1952 Unknown [id number] 2.16.84 0.1.754206.3.579.2.593 1952 Unknown [id number] 2.16.84 0.1.593672.3.579.2.593 1952 Unknown [id number] 2.16.84 0.1.133721.3.579.2.593 1952 Unknown [id number] 2.16.84 0.1.843895.3.579.2.593 1952 Unknown [id number] 2.16.84 0.1.991078.3.579.2.593 1952 Unknown [id number] 2.16.84 0.1.735480.3.579.2.593 1952 Unknown [id number] 2.16.84 0.1.803149.3.579.2.593 Unknown [id number] 2.16.8 40.1.921117.3.579.2.531 Unknown [employer] [id number] Social History Date Type Detail Facility Start: 06-27-2022 End: 12-23-2023 Tobacco smoking status NHIS Never smoked tobacco (finding) [facility] Start: 1950 Sex Assigned At Male F [facility] Sex Assigned At Sex Assigned At Bir th [employer] Other Clinical Notes 08-02-2021 to 01-27-2024 Note Date & Type Note Facility 01-27-2024 Note This report has been cancelled. [facility] 10-20-2023 Note [place] [facility] Subjective Man Patel is a 73 y.o. year old male patient being seen for 6 mo follow up PAF, chronic CHF, CAD, and hypertension. He's been doing very well from cardiac standpoint lately he states. Denies chest pain, SOB, palpitations, lightheadedness/syncope, and bleeding on Eliquis. He had routine labs for amiodarone monitoring in Aug 2023. Patient Active Problem List Diagnosis Chronic combined systolic and diastolic heart failure (CMS/HCC) Benign hypertensive cardiomyopathy with heart failure (CMS/HCC) Paroxysmal atrial fibrillation (CMS/HCC) Arteriosclerosis of arterial coronary artery bypass graft Morbid obesity (CMS/HCC) Bundle branch block Edema of lower extremity Generalized ischemic myocardial dysfunction Pain in lower limb Family History Problem Relation Name Age of Onset Coronary artery disease Mother Hyperlipidemia Mother Hypertension Mother Stroke Mother Diabetes Mother Coronary artery disease Father Hyperlipidemia Father Hypertension Father Social History Tobacco Use Smoking status: Never Smokeless tobacco: Never Substance Use Topics Alcohol use: Never HPI Man is seen in follow up. He is a 73-year-old man with prior history of coronary disease status post bypass surgery in the past x3, cardiac catheterization in 2016 showed no targets for revascularization. He also has history of hypertension, morbid obesity, chronic systolic heart failure (EF 35-40%- 08/2020, EF 40% April 2022). He has history of atrial flutter status post cardioversion in 2016. He also has history of atrial fibrillation. In July 2021 he was admitted with syncope and was found to be in complete heart block. He underwent dual-chamber pacemaker on 07/31/2021. He has HTN, morbid obesity. He has CKD 4. He follows with nephrology. Currently he reports that he has no angina. He has mild shortness of breath on exertion NYHA class II but none at rest. He has mild lower extremity swelling. He is not very ambulatory at all. Review of Systems Cardiovascular: Positive for leg swelling. Hematologic/Lymphatic: Bruises/bleeds easily. Skin: Positive for dry skin. Musculoskeletal: Positive for muscle weakness. Neurological: Positive for weakness. All other systems reviewed and are negative. Objective Visit Vitals BP 116/70 (BP Location: Right arm, Patient Position: Sitting) Pulse 69 Ht 1.702 m (5' 7 ) Wt 127 kg (280 lb) Comment: per patient SpO2 97% BMI 43.85 kg/m??? Smoking Status Never BSA 2.45 m??? Physical Exam Constitutional: Appearance: He is [...] present. Left lower le+ Pitting Edema present. Comments: In wheelchair Skin: General: Skin is warm and dry. Neurological: General: No focal deficit present. Mental Status: He is alert and oriented to person, place, and time. Psychiatric: Mood and Affect: Mood normal. Behavior: Behavior is cooperative. Judgment: Judgment normal. Allergies No Known Allergies Medications Current Outpatient Medications: amiodarone (Pacerone) 200 mg tablet, TAKE 1 TABLET BY MOUTH EVERY DAY FOR 30 DAYS, Disp: 90 tablet, Rfl: 3 apixaban (Eliquis) 5 mg tablet, Take 1 tablet (5 mg) by mouth in the morning and at bedtime., Disp: 14 tablet, Rfl: 3 aspirin 81 mg EC tablet, Take 81 mg by mouth in the morning., Disp: , Rfl: atorvastatin (Lipitor) 80 mg tablet, TAKE 1 TABLET BY MOUTH EVERY DAY, Disp: 90 tablet, Rfl: 3 bumetanide (Bumex) 1 mg tablet, TAKE 3 TABLETS BY MOUTH TWICE A DAY, Disp: 540 tablet, Rfl: 3 hydrALAZINE (Apresoline) 25 mg tablet, Take 1 tablet (25 mg) by mouth in the morning and at bedtime., Disp: 180 tablet, Rfl: 3 isosorbide dinitrate (Isordil) 10 mg tablet, Take 10 mg by mouth in the morning, at noon, and at bedtime., Disp: , Rfl: Klor-Con M20 20 mEq ER tablet, Take 20 mEq by mouth in the morning., Disp: , Rfl: metoprolol succinate XL (Toprol-XL) 25 mg 24 hr tablet, Take 12.5 mg by mouth in the morning. Do not crush or chew., Disp: (more content not included)... [facility] 05-27-2023 Evaluation note Encounter Date Diagnosis Assessment [...] I50.20) Patient follows with cardiology clinic in [facility] every 3 months. Has had [...] 2.4 cm in the right 4.2 cm [employer] Other [id number] NoteNYHC III- Currently patient remains fairly euvolemic without exacerbation Continue GDMT- Aspirin, Lipitor, Isordil and hydralazine, Toprol and spironolactone Diuretic therapy- Remains on Bumex 3 mg twice daily Monitor daily weights, I&O, fluid restriction 1.5-2L/day, renal function and electrolytes- [facility] as [facility]Un[facility] 05-07-2023 NoteCoronary artery disease is stable Continue GDMT- Aspirin, Lipitor, Toprol, Isordil and hydralazine continue risk factor modifications- heart healthy diet, regular exercise as tolerated and continue all medications.[facility] 05-07-2023 NoteCurrently blood pressure well controlled 110/62 continue all medicationsUnMagruder Hospital08-30-2023 Note Currently stable without concerning symptomsUnMagruder Hospital 05-07-2023 [id number] VASc= 4 (age, htn, chf, CAD) Continue anticoagulation with eliquis Monitor for s/s of bleeding Continue toprol- rate controlledUnMagruder Hospital08-30-2023 NoteUTP CARDIOLOGY PROGRESS NOTE HPI: Man Patel [...] 26, BUN 40, creatini (more content not included)...[facility]08-30-2023 NotePatient here for 6 mo [...] easily. All other systems reviewed and are negative.[facility] 12-10-2022 Evaluation note* Encounter Date [...] I50.20) Patient follows with cardiology clinic in [facility] every 3 months. Has had [...] D is low. As the patient take [id number] vitamin D supplement 2000 unit daily Dec, [...] 2.4 cm in the right 4.2 cm [employer] Other 01-10-2023 Evaluation note* Encounter Date Diagnosis Assessment Notes [...] I50.20) Patient follows with cardiology clinic in [facility] every 3 months. Has had seems compensating. Patient on spironolactone and Bumex. Patient follows low-salt diet hours himself every day. Sep, Presence of permanent cardiac pacemaker (ICD-10 - Z95.0) Patient has history of complete heart block status post permanent pacemaker with defibrillator placement in 2020. And Eliquis and amiodarone in addition to metoprolol. Follows with cardiology clinic [employer] Other 08-30-2022 NoteMR#: [id number] [facility] Pt. Name: Man Patel Admitted: [...] x2 on 04/29 and 05/03, insertion of [place] catheter and removal, and echocardiogram. CONSULTATIONS: Included Cardiology, Nephrology, vascular service and medical ICU. HOSPITAL COURSE: This patient is a 72-year-old male, who presents to the [facility] as a transfer from [facility] with complaints of worsening shortness of breath and weeping edema. The patient was accepted for transfer by the [facility] Cardiology Service for failed outpatient treatment of [...] at this time for discharging to a jail facility with close followup with Cardiology and [...] The patient is being discharged to a jail facility. Please note that an addendum may be added to this discharge dictation as the patient's discharge is currently pending placement at this time. MEDICATIONS: As per medication reconciliation and as per above. DISCHARGE INSTRUCTIONS: Activity as tolerated with PT and OT at facility. Heart healthy, low-cholesterol diet with (more content not included)...[facility]11-25-2021 NoteMR#: [id number] I [facility] Pt. Name: Man Patel Admitted: [...] reduced ejection fraction, who initially presented to [facility] for bradycardia. He was having syncopal episodes, where he was found to have heart rate in the 30s. Atropine was given at [place] without any help. His blood pressure was stable at that time and was transferred to [facility]. On arrival, his EKG revealed complete heart [...] and followup as an outpatient close to [place] where the patient is from and interested [...] physician, Dr. Costa, in 1 week at [facility]. 2. Follow up with [facility] Heart on 08/10/2021 for wound/pacemaker check at 11:20 a.m. 3. Follow up with [facility] Cardiovascular on 09/04/2021 at 2:[address] [place] [address] Cintron. 4. Follow up with Nephrology around [place]. TIME SPENT: Time spent for the discharge [...] Johnson CNP Date Trans: 08/02/2021 05:18 P/surekha [id number] [facility]Evaluation noteNo assessment information availableMiami Valley Hospital Work Phone: Evaluation noteNo InformationNort [employer] Other Evaluation note* Diagnosis Onset Date Resolution Status Hyperparathyroidism acute Hypertensive nephropathy acu te Hyperuricemia acute Kidney disease, chronic, stage IV (GFR 15-29 ml/min) acute Presence of permanent cardiac pacemaker acute Renal cyst, acquired acute Systolic congestive heart failure acute Vitamin D deficiency acute [facility] Work Phone: Histncq general Narrative - Reported* Type Description Date Medical History varicose veins Medical History Hypertension Medical History obesity Medical History thrombophlebitis Medical History possible DVT Medical History CAD Medical History ACUTE HYPOXIC RESPIRATORY FAILUR E Surgical History triple bypass 03/2000 Hospitalization History bypass Hospitalization History EDEMIA 06/29 Hospitalization History EDEMIA 04/2022 [employer] Other [facility] general Narrative - Reported* Type Description Date Medical History varicose veins Medical History Hypertension Medical History obesity Medical History thrombophlebitis Medical History possible DVT Medical History CAD Medical History ACUTE HYPOXIC RESPIRATORY FAILUR E Surgical History triple bypass 03/2000 Hospitalization History bypass Hospitalization History EDEMA 06/29 Hospitalization History EDEMA 04/2022 [employer] Other Hospital Discharge instructions Additional Instructions Take antibiotics as instructed until gone Elevate lower extremities You have blood cultures pending Follow-up with home care your primary care doctor call tomorrow for appointment Return here if any problems persist or worsen including fever, chills, increased redness, increased swelling or any other concernMiami Valley Hospital Work Phone: Summary Purpose Family History No Family History Records Found Relationship Condition Age at Onset Recorded Date/T harshad brother Diabetes mellitus Unknown Heart disease Unknown Hypertension Unknown father Unknown family member Unknown Not Specified Unknown Diabetes mellitus Unknown sister Heart disease Unknown Advance Directives No Advanced Directives Records Found Advance Directive Response Recorded Date/ Time Advance Directives No June 27, 2022 4:21pm Chief Complaint and Reason for Visit Chief Complaint bilateral leg swelli ng Chief Complaint RENAL 4 month f/u Reason for Visit Hyperparathyroidism Hypertensive nephropathy Hyperuricemia Kidney disease, chronic, stage IV (GFR 15-29 ml/min) Presence of permanent cardiac pacemaker Renal cyst, acquired Systolic congestive heart failure Vitamin D deficiency Additional Source Comments (unrecognized sect ion and content) No Status Records FoundNo Status Records FoundNo Status Records FoundNo Status Records Found INFORMATION SOURCE (unrecogn ized section and content) DATE CREATED AUTHOR 05/15/2022 [facility] DATE CREATED AUTHOR AUTHOR'S ORGANIZ ATION 07/05/2022 [facility] DATE CREATED AUTHOR AUTHOR'S ORGANIZ ATION 12/11/2022 [facility] DATE CREATED AUTHOR AUTHOR'S ORGANIZ ATION 04/27/2024 [facility] Care Teams (unrecognized sec tion and content) Team Status: Inactive Member Role Status Dates Cullen Costa MD Primary Care Provider Active Balwinder Chavarria DO Emergency Provider Active Team Status: Active Member Role Status Dates Cullen Costa MD Primary Care Provider Active Team Status: Active Member Role Status Dates Cullen Costa MD Primary Care Provider Active Start: December 17, 2023 Dedra Mendoza MD Attending Provider Active Star t: December 17, 2023 Team Status: Inactive Member Role Status Dates Cullen Costa MD Primary Care Provider Active Start: December 23, 2023 End: December 23, 2023 Dedra Mendoza MD Attending Provider Active Star t: December 23, 2023 End: December 23, 2023 Goals (unrecognized section and content) Goals may be documented in a n alternate sectionNo InformationNo InformationNo InformationNo InformationNo InformationGoals may be documented in an alternate section REASON FOR VISIT (unrecogniz ed section and [...] BE BASED ON THE PRIMARY CLINICAL RECORDS. [employer] provides no warranty or guarantee of the accuracy or completeness of information in this document.
[2024-04-30 09:41] LABS: Basophils Absolute Auto 0.1 10^3/uL (0.0-0.1); Basophils Percent Auto 0.8 % (0.2-2.0); Eosinophils Absolute Auto 0.6 10^3/uL (0.0-0.7); Eosinophils Percent Auto 8.4 % (0.9-7.0); Hematocrit 45.6 % (42.0-54.0); Hemoglobin 14.7 g/dL (14.0-18.0); Immature Granulocytes Abs Auto 0.04 10^3/uL (0.00-0.03); Immature Granulocytes Pct Auto 0.6 % (0.0-0.5); Lymphocytes Absolute Auto 0.7 10^3/uL (1.2-3.8); Lymphocytes Percent Auto 9.7 % (20.5-60.0); Mean Corpuscular HGB Conc 32.2 g/dL (29.9-35.2); Mean Corpuscular Volume 93.1 fL (80.0-94.0); Mean Platelet Volume 10.7 fL (9.5-13.5); Monocytes Absolute Auto 0.6 10^3/uL (0.3-0.8); Monocytes Percent Auto 8.2 % (1.7-12.0); Neutrophils Absolute Auto 5.2 10^3/uL (1.4-6.5); Neutrophils Percent Auto 72.3 % (43.0-75.0); Platelet Count 171 10^3/uL (150-450); Red Cell Distribution Width 15.3 % (11.0-15.0); White Blood Count 7.2 10^3/uL (4.0-11.0)
[2024-04-30 10:38] LABS: Free T4 1.26 ng/dL (0.76-1.46)
[2024-04-30 10:44] LABS: Alanine Aminotransferase 19 U/L (16-63); Albumin Level 3.6 g/dL (3.4-5.0); Alkaline Phosphatase 110 U/L (46-116); Anion Gap 13.6; Aspartate Amino Transferase 19 U/L (15-37); BUN Creatinine Ratio 21.6; Bilirubin Total 1.2 mg/dL (0.2-1.0); Calcium 9.2 mg/dL (8.5-10.1); Carbon Dioxide 27.5 mmol/L (21.0-32.0); Chloride 100 mmol/L (98-107); Chol HDL Ratio 1.7; Cholesterol 101 mg/dL (<=200); Estimated GFR (African America 32 (>=60); Estimated GFR (Non-African Ame 26 (>=60); Globulin 3.6 g/dL; Glucose 122 mg/dL (74-106); HDL Cholesterol 58 mg/dL (40-60); Potassium 4.1 mmol/L (3.5-5.1); Sodium 137 mmol/L (136-145); Total Protein 7.2 g/dL (6.4-8.2); Triglycerides 40 mg/dL (<=150)
== END 2024-04-30 09:02 | disposition home or self-care (01) ==
LOC: LAB 09:03
PROVIDERS: PCP Family Medicine; Visit Provider Internal Medicine Interventional Cardiology
DX: I50.22 Chronic systolic (congestive) heart failure (principal); I25.10 Atherosclerotic heart disease of native coronary artery without angina pectoris; Z79.899 Other long term (current) drug therapy
CPT/HCPCS: 36415; 80053; 80061; 84439; 84443; 85025

== ENCOUNTER 2024-05-03 09:34 | Outpatient (OUT) | payer MEDICARE, OTHER, SELFPAY ==
--- NOTE | 2024-05-03 09:34 | CA_ITS ---
Patient Name: MAN ALEGRIA MR#: [id number] : 1950 Exam Date: 05/03/2024 Ordering Doctor: DR LI MELLO M.D. ECHOCARDIOGRAM REPORT PROCEDURE: CA ECHO W/ CON INDICATIONS: Heart failure with reduced EF COMPARISON: None. DESCRIPTION: LIMITED ECHOCARDIOGRAM Real-time transthoracic echocardiography with 2D, M-mode, spectral and color flow Doppler performed. QUALITY: Lumason contrast was administered due to suboptimal imaging for left ventricular opacification to improve delineation of endocardial boarders. LEFT VENTRICLE: Normal chamber size. Normal left ventricular wall thickness. LV EF: Global left ventricular systolic function is severely reduced; visually estimated ejection fraction is 20 to 25%. Global hypokinesis. Abnormal septal motion likely related to underlying bundle branch block. LEFT ATRIUM: Moderate dilatation. RIGHT ATRIUM: Mild to moderately dilated RIGHT VENTRICLE: Poorly seen; appears enlarged. Systolic function is reduced. TRICUSPID VALVE: Normal mobility and thickness. MITRAL VALVE: Normal mobility and thickness. AORTIC VALVE: Normal trileaflet appearance. No visible sclerosis. Normal leaflet mobility. AORTIC ROOT: Normal diameter and appearance. PULMONIC VALVE: Normal thickness and mobility. PERICARDIUM: Anterior free space; trivial effusion versus fat pad. CONCLUSION: 1. Global left ventricular systolic function is severely reduced; visually estimated ejection fraction is 20 to 25% 2. The right ventricle is poorly seen but appears enlarged with reduced systolic function 3. Biatrial enlargement 4. Anterior free space; trivial effusion versus fat pad A limited echocardiogram was performed Adult Echocardiography Procedure Report Left Ventricle LVEDD (3.7 - 5.6 cm): 5.47 cm LVESD (2.2 - 4.0 cm): 4.91 cm LVIVS thickness (0.6 - 1.2 cm): 0.80 cm LVPW thickness (0.5 - 1.0 cm): 0.69 cm Left Ventricular Ejection Fraction: 36.49 % Left Atrium Left Atrium Systolic Dimension: 5.49 cm Mitral Valve Right Ventricle Aorta AO Root Diam: 3.64 cm Aortic Valve Tricuspid Valve Pulmonic Valve Right Atrium Dictated by: Mark Iniguez M.D. on 05/03/2024 at 14:28 Approved by: Mark Iniguez M.D. on 05/03/2024 at 14:32
[2024-05-03] MEDS: SULFUR HEXAFLUORIDE MICROSPHR 25 MG/5 ML VIAL 10 MG IV (12:43)
== END 2024-05-03 09:35 | disposition home or self-care (01) ==
LOC: CARD 09:35
PROVIDERS: PCP Family Medicine; Visit Provider Internal Medicine Interventional Cardiology
DX: I50.41 Acute combined systolic (congestive) and diastolic (congestive) heart failure (principal)
CPT/HCPCS: C8929; Q9950

== ENCOUNTER 2024-05-17 10:48 | Outpatient (OUT) | payer MEDICARE, OTHER, SELFPAY ==
--- NOTE | 2024-05-17 10:25 | NM_ITS ---
Patient Name: MAN ALEGRIA MR#: [id number] : 1950 Exam Date: 05/17/2024 Ordering Doctor: CYNTHIA PALMA CNP RADIOLOGY REPORT PROCEDURE: NM [place] PERF SPECT REST STR COMPARISON: None. INDICATIONS: chronic combined systolic and diastolic heart failure TECHNIQUE: Exam Description: Stress/Rest two day protocol gated SPECT Rest Imagin.7 mCi Tc-99m Cardiolite IV on 05/17/2024 Stress Imaging 26.1 mCi Tc-99m Cardiolite IV on 05/19/2024 Exercise Protocol: 0.4 mg Lexiscan given IV Heart Rate (bpm): Rest: 85 Max: 88 PMHR: 59 Blood Pressure: Rest: 124/76 Max: 128/64 Symptoms: Rest and peak stress ECG findings were pending and the exercise portion of the study was pending per attending physician Dr. RIVERA . For more details please see separate cardiac stress test report. FINDINGS: QUALITY OF STUDY: Good. PERFUSION DEFECT: LOCATION: Basal anteroseptal. Basal inferoseptal. Apical inferior. [place]. SIZE: Medium (3-4 segments). SEVERITY: Moderate. TYPE: Persistent. WALL MOTION: Mild hypokinesis: LV SIZE: Enlarged; EDV 154 mL. TID / TCD: None; 1.0 LVEF: Abnormal. Calculated EF 43%. SUMMARY: Myocardial perfusion imaging study has ABNORMAL findings. CONCLUSION: 1. Fixed defects in the apex and along the septum 2. No reversible ischemia 3. Dilated left ventricle 4. Low left ventricular ejection fraction of 43% 5. Pending exercise test results Dictated by: Herrera Ochoa MD on 05/19/2024 at 15:39 Approved by: Herrera Ochoa MD on 05/19/2024 at 15:41
== END 2024-05-17 10:49 | disposition home or self-care (01) ==
LOC: NM 10:49
PROVIDERS: PCP Family Medicine; Visit Provider Nurse Practitioner Family
DX: I50.42 Chronic combined systolic (congestive) and diastolic (congestive) heart failure (principal)
CPT/HCPCS: 78452; A9500

== ENCOUNTER 2024-05-19 08:52 | Outpatient (OUT) | payer MEDICARE, OTHER, SELFPAY ==
[2024-05-19] MEDS: REGADENOSON 0.4 MG/5 ML SYRINGE IV (11:29)
== END 2024-05-19 08:53 | disposition home or self-care (01) ==
LOC: CARD 08:53
PROVIDERS: PCP Family Medicine; Visit Provider Nurse Practitioner Family
DX: I50.42 Chronic combined systolic (congestive) and diastolic (congestive) heart failure (principal)
CPT/HCPCS: 93017; J2785

== ENCOUNTER 2024-06-02 10:12 | Outpatient (OUT) | payer MEDICARE, OTHER, SELFPAY ==
--- OUTSIDE RECORDS SUMMARY | 2024-06-02 10:21 | XMS_ITS | CCD ---
Author Organization [facility] Care Team Providers Care License Registration Examiner Name Role Phone ANNELIESE HOWARDD Admitting Unavailable [...] IGOR, DR CULLEN [facility] Unavailable SA[facility] AUGUSTINE, DR ZE Moraes Consulting Unavailable DEDRA MENDOZA [...] Care Unavailable BUTCH ., EDWARD Consulting Unavailable KLKTA, ZE Consulting Unavailable HIGHLANDER, MIS Dye Admitting [...] [facility] Unavailable NADERER, DR TIGIST Pnedleton Consulting Unavailable HAY ., DR CHI Consulting Unavailable JOHANA, MIS Consulting Unavailable TIFFANIE SALGADO Consulting Unavailable SA[facility] AUGUSTINE, DR ZE Moraes Attending Unavailable SATURNINO, DR ZE Moraes Admitting Unavailable [facility], DR MEDEIROS Primary Care Unavailable EMETERIO, MIS Dye Attending Unavailable MIS STORM Admitting Unavailable IGOR, DR CULLEN [facility] Unavailable DEDRA MENDOZA Attending Unavailable DEDRA MENDOZA Admitting Unavailable DEDRA MENDOZA Consulting Unavailable IGOR, DR CULLEN [facility] Unavailable Cullen Costa Unavailable GAGE SIMPSON Referring Unavailable LI CINTRON Attending Unavailable GAGE SIMPSON Referring Unavailable CYNTHIA PALMA Attending Unavailable Allergies Allergy Classification Reported Allergen(s) Allergy Type Date of Onset Reaction(s) Facility (3 sources) patient allergy list reviewed by nurse or physicia Propensity to adverse reactions Comment:Done Vaccinogen Other (3 sources) Allergies Reconciled Propensity to adverse reactions Unknown Vaccinogen Other Medications Current Medications Medication Drug Class(es) [...] 23, 2023 1:58pm take 3 tablets by [facility] every twelve hours Bumetanide 1 MG 3 tablet Orally TWICE A DAY Active cholecalciferol 0.05 mg oral tablet (5 sources) Vitamin D Start: 12-23-2023 take 50 ug by mouth once daily Cholecalciferol (Vitamin D3) Active 50 MCG PO Daily December 23, 2023 12:00am Start: 12-10-2022 take 1 capsule by [facility] once daily Cholecalciferol 25 MCG (1000 UT) 1 capsule Orally Once a day for 90 days Dec, Active take 1 capsule by [facility] once daily Cholecalciferol 25 MCG (1000 [...] 23, 2023 1:59pm take 1 tablet by [facility] every twelve hours hydrALAZINE HCl 10 MG [...] 2023 12:00am take 1 tablet by [facility] every twenty-four hours Potassium Chloride ER 20 [...] 2023 2:02pm take 1 capsule by [facility] every twenty-four hours Colace 100 MG [...] to breakdown of skin] Onset: 01-04-2022 Chronic Conduction disorders (18 sources) Cardiac pacemaker in situ; Translations: [Presence of cardiac pacemaker] Onset: 12-06-2022 Chronic Congestive heart failure; nonhypertensive (20 sources) Congestive heart failure; Translations: [Unspecified systolic (congestive) heart failure] Onset: 12-21-2021 Chronic Coronary atherosclerosis and other heart disease (6 sources) Atherosclerotic heart disease of [place] coronary artery without angina pectoris; Translations: [Atherosclerosis of coronary artery without angina pectoris] Onset: 07-18-2022 Chronic Disorders of lipid metabolism (5 sources) Pure hypercholesterolemia, unspecified; Translations: [Hyperlipidemia, unspecified] Onset: 05-06-2013 Chronic Essential hypertension (12 sources) Essential hypertension; Translations: [Essential (primary) hypertension] [...] Onset: 04-01-2022 Episodic Other aftercare (1 source) [facility] (current) use of aspirin; Translations: [CORRECTION CURRENT USE OF ASPIRIN] Onset: 07-18-2022 Episodic Other aftercare (3 sources) 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; Translations: [OTH CORRECTION CURRENT DRUG THERAPY] Onset: 07-18-2022 Episodic Other aftercare (1 source) 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; Translations: [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] Onset: 04-26-2022 Episodic Other [...] Test Name Value Interpretation Reference Range Facility Office Visiton 05-05-2024 Follow-up visit [id number] Man Patel 1950 M Date Provider Department Center 05/05/2024 CYNTHIA WILLIAMSON CARD [facility] Family History Problem Relation Age of Onset Coronary artery disease Mother Hyperlipidemia Mother Hypertension Mother Stroke Mother Diabetes Mother Coronary artery disease Father Hyperlipidemia Father Hypertension Father Family Status - Relation Status Age at Mother Father Level of Service:47982 [place] OFFICE/OUTPATIENT ESTABLISHED MOD MDM 30 MIN Reason for Visit and Comments: Congestive Heart Failure [127] Coronary Artery Disease [187] [facility] 3604-26-2024 36 Spoke with patient's last week and made her aware that [facility] would be calling to schedule this echo w/ Lumason. Normal [facility] 3604-13-2024 36 Regarding echo resul t from 04/06/2024: MD Key Mao MA He needs a limited echo for LVEF with echocontrast (at [facility]). If the EF is reduced then he needs upgrade of his pacer to RESIDENCE MANAGER/D. Can this be done at [facility] with Mallory? I already know he's not going to be keen on driving to [place]. But if you insist, I will make him aware of the need to go to [facility]. Just thought I'd ask. [facility] 36on 02-12-[address] Simpson wanted pinky ortiz to have echo s/p device check on 01/27/2024. He is due for echo prior to his Apr [address] Cintron. Normal [facility] Erythrocyte distribution wid th Auto (RBC) [Ratio]on 12-17-2023 Erythrocyte distribution width (RBC) [Ratio] 15.6 % 11.0-15.0 [facility] Estimated glomerular filtrat ion rate (GFR) non- Americanon 12-17-2023 GFR/1.73 sq M.predicted among non-blacks MDRD (S/P/Bld) [Vol rate/Area] 22 mL/min/{1.73_m2} >=60 [facility] Globulin Calc (S) [Mass/Vol] on 12-17-2023 Globulin (S) [Mass/Vol] 4.2 g/dL [facility] Hematocrit Auto (Bld) [Volum e fraction]on 12-17-2023 Hematocrit (Bld) [Volume fraction] 46.1 % 42.0-54.0 [facility] Hemoglobin [Mass/volume] in Bloodon 12-17-2023 Hemoglobin (Bld) [Mass/Vol] 14.9 g/dL 14.0-18.0 [facility] Laboratory - Chemistry and C hemistry - challengeon 12-17-2023 Albumin [Mass/Vol] 3.9 g/dL 3.4-5.0 [facility] ALP [Catalytic activity/Vol] 131 U/L 46-116 [facility] ALT [Catalytic activity/Vol] 21 U/L 16-63 [facility] AST [Catalytic activity/Vol] 20 U/L 15-37 [facility] Bilirubin [Mass/Vol] 1.1 mg/dL 0.2-1.0 [facility] Calcium [Mass/Vol] 9.5 mg/dL 8.5-10.1 [facility] Chloride [Moles/Vol] 100 mmol/L 98-107 [facility] CO2 [Moles/Vol] 26.5 mmol/L 21.0-32.0 [facility] Creatinine [Mass/Vol] 2.90 mg/dL 0.70-1.30 [facility] GFR/1.73 sq M.predicted MDRD (S/P/Bld) [Vol rate/Area] 26 mL/min/{1.73_m2} >=60 [facility] Glucose [Mass/Vol] 112 mg/dL 74-106 [facility] Magnesium [Mass/Vol] 2.9 mg/dL 1.8-2.4 [facility] Potassium [Moles/Vol] 4.4 mmol/L 3.5-5.1 [facility] Protein [Mass/Vol] 8.1 g/dL 6.4-8.2 [facility] Sodium [Moles/Vol] 139 mmol/L 136-145 [facility] Urate [Mass/Vol] 7.8 mg/dL 3.5-7.2 [facility] Urea nitrogen [Mass/Vol] 64.0 mg/dL 7.0-18.0 [facility] Urea nitrogen/Creatinine [Mass ratio] 22.1 mg/mg [facility] Leukocytes [#/volume] correc chester for nucleated erythrocytes in Blood by Automated counon 12-17-2023 WBC corrected for nucl RBC Auto (Bld) [#/Vol] 7.3 10 3/uL 4.0-11.0 [facility] MCH Auto (RBC) [Entitic mass ]on 12-17-2023 MCH (RBC) [Entitic mass] 29.6 pg 25.9-34.0 [facility] MCHC Auto (RBC) [Mass/Vol]on 12-17-2023 MCHC (RBC) [Mass/Vol] 32.3 g/dL 29.9-35.2 [facility] MCV Auto (RBC) [Entitic vol] on 12-17-2023 MCV (RBC) [Entitic vol] 91.5 fL 80.0-94.0 [facility] No Panel Informationon 12-16 25-Hydroxy Vitamin D Total 27.7 ng/mL [facility] Comment on above: <20 ng/mL Vit D defi cient20-<30 ng/mL Vit D yxhtmhkxjssm07-201 ng/mL Vit D sufficient>100 ng/mL Potential Toxicity Miscellaneous Test COMMENT . [facility] Comment on above: Test Ordered: [id number] Prot+CreatU (Random)Creatinine, Urine 15.1 mg/dL CB Reference Range: Not Estab.Protein,Total,Urine <4.0 mg/dL CB Reference Range: Not Estab.Verified by repeat analysisProtein/Creat Ratio Comment [A ] CB Units of Measure: mg/g creat Reference Range: 0-200This result is below the assay's limit of quantitationindicating a dilute specimen, potentially due to diurnalvariation. Consider recollection at a time likely toprovide a more concentrated urine.Performed at: [facility] [address] [id number] Director: New Vega PhD, Phone: [phone] Parathyroid Hormone (Intact) 140 pg/mL 15 [facility] Comment on above: Performed at: - [facility] [address] [id number] Director: New Vega PhD, Phone: [phone] Phosphorus Level 3.7 mg/dL 2.6-4.7 [facility] Platelet mean volume Auto (B ld) [Entitic vol]on 12-17-2023 Platelet mean volume (Bld) [Entitic vol] 10.8 fL 9.5-13.5 [facility] Platelets Auto (Bld) [#/Vol] on 12-17-2023 Platelets (Bld) [#/Vol] 195 10 3/uL 150-450 [facility] RBC Auto (Bld) [#/Vol]on RBC (Bld) [#/Vol] 5.04 10 6/uL 4.70-6.10 [facility] Serum or plasma albumin/glob ulin mass ratioon 12-17-2023 Albumin/Globulin [Mass ratio] 0.9 {ratio} [facility] Serum or plasma anion gap de terminationon 12-17-2023 Anion gap [Moles/Vol] 16.9 mmol/L [facility] Office Visiton 10-20-2023 Follow-up visit [id number] Man Patel 1950 M Date Provider Department Center 10/20/2023 LI MADDOX LENA [facility] Family History Problem Relation Age of Onset Coronary artery disease Mother Hyperlipidemia Mother Hypertension Mother Stroke Mother Diabetes Mother Coronary artery disease Father Hyperlipidemia Father Hypertension Father Family Status - Relation Status Age at Mother Father Level of Service:25012 [place] OFFICE/OUTPATIENT ESTABLISHED LOW MDM [address] [facility] PTH INTACTon 12-04-2022 PTH, Intact 66 pg/mL Critically high 15-65 [facility] Comment on above: Performed By: #### P THINT ####[facility] [address] [place] [address]Dr. Elba Anthony HEMOGRAM AND PLATELon 2022 Hematocrit (Bld) [Volume fraction] 43.4 % Normal 42.0-54.[address] [facility] Comment on above: Performed By: #### H H ####[facility] [address] [place] [address]Dr. Elba Anthony Hemoglobin (Bld) [Mass/Vol] 14.1 g/dL Normal 14.0-18.0 [facility] Comment on above: Performed By: #### H H ####[facility] [address] [place], [place] [address]Dr. Elba Anthony MCH (RBC) [Entitic mass] 28.2 pg Normal 25.9-34.0 [facility] Comment on above: Performed By: #### H H ####[facility] [address] [place] [address]Dr. Elba Anthony MCHC (RBC) [Mass/Vol] 32.5 g/dL Normal 29.9-35.2 [facility] Comment on above: Performed By: #### H H ####[facility] [address] [place] [address]Dr. Elba Anthony MCV (RBC) [Entitic vol] 86.8 fL Normal 80.0-94.0 [facility] Comment on above: Performed By: #### H H ####[facility] [address] [place] [address]Dr. Elba Anthony PLT 170 103/ul Normal 150-450 [facility] Comment on above: Performed By: #### H H ####[facility] [address] [place] [address]Dr. Elba Anthony RBC 5.00 106/ul Normal 4.70-6.10 [facility] Comment on above: Performed By: #### H H ####[facility] [address] [place] [address]Dr. Elba Anthony WBC 7.2 103/ul Normal 4.0-11.0 [facility] Comment on above: Performed By: #### H H ####[facility] [address] [place] [address]Dr. Elba Anthony MAGNESIUMon 12-03-2022 Magnesium [Mass/Vol] 2.6 mg/dL Critically high 1.8-2.4 [facility] Comment on above: Performed By: #### C MP, URIC, PHOS, MG ####[facility] [address] [place] [address]Dr. Elba Anthony PHOSPHORUSon 12-03-2022 Phosphate [Mass/Vol] 3.9 mg/dL Normal 2.6-4.7 [facility] Comment on above: Performed By: #### C MP, URIC, PHOS, MG ####[facility] [address] [place] [address]DrLatoya Nereydasiobhan Anthony PROF 14(COMP METB)on 023 Albumin [Mass/Vol] 4.0 g/dL Normal 3.4-5.0 [facility] Comment on above: Performed By: #### C MP, URIC, PHOS, MG ####[facility] [address] [place] [address]Dr. Elba Raj Albumin/Globulin [Mass ratio] 0.9 {ratio} Normal [facility] Comment on above: Performed By: #### C MP, URIC, PHOS, MG ####[facility] [address] [place] [address]Dr. Nereydasiobhan Anthony ALP [Catalytic activity/Vol] 159 U/L Critically high 46-116 [facility] Comment on above: Performed By: #### C MP, URIC, PHOS, MG ####[facility] J[address] [place] [address]Dr. Elba Anthony ALT [Catalytic activity/Vol] 33 U/L Normal 16-63 [facility] Comment on above: Performed By: #### C MP, URIC, PHOS, MG ####[facility] [address]qs[address] [place] [address]Dr. Elba Anthony Anion gap [Moles/Vol] 15.2 mmol/L Normal Th [facility] Comment on above: Performed By: #### C MP, URIC, PHOS, MG ####[facility] [address] [place] [address]Dr. Elba Anthony AST [Catalytic activity/Vol] 27 U/L Normal 15-37 [facility] Comment on above: Performed By: #### C MP, URIC, PHOS, MG ####[facility] [address] [place] [address]Dr. Elba Anthony Bilirubin [Mass/Vol] 0.9 mg/dL Normal 0.2-1.0 [facility] Comment on above: Performed By: #### C MP, URIC, PHOS, MG ####[facility] [address] [place], [place] [address]Dr. Elba Anthony Calcium [Mass/Vol] 9.8 mg/dL Normal 8.5-10.1 [facility] Comment on above: Performed By: #### C MP, URIC, PHOS, MG ####[facility] [address] [place] [address]Dr. Elba Anthony Chloride [Moles/Vol] 102 mmol/L Normal 98-107 [facility] Comment on above: Performed By: #### C MP, URIC, PHOS, MG ####[facility] [address] [place] [address]Dr. Elba Anthony CO2 [Moles/Vol] 30.5 mmol/L Normal 21.0-32.0 [facility] Comment on above: Performed By: #### C MP, URIC, PHOS, MG ####[facility] [address] [place] [address]Dr. Elba Anthony Creatinine [Mass/Vol] 2.63 mg/dL Critically high 0.70-1.30 [facility] Comment on above: Performed By: #### C MP, URIC, PHOS, MG ####[facility] [address]dsed[address] [place] [address]Dr. Elba Anthony EGFR-AF NIUEAN 29 mL/min/1.73m2 Critically low >=[address] [facility] Comment on above: Performed By: #### C MP, URIC, PHOS, MG ####[facility] [address] [place] [address]Dr. Elba Anthony EGFR-NON AF NIUEAN 24 mL/min/1.73m2 Critically low >=[address] [facility] Comment on above: Performed By: #### C MP, URIC, PHOS, MG ####[facility] [address] [place] [address]Dr. Elba Anthony Globulin (S) [Mass/Vol] 4.5 g/dL Normal [facility] Comment on above: Performed By: #### C MP, URIC, PHOS, MG ####[facility] [address] [place] [address]Dr. Elba Anthony Glucose [Mass/Vol] 122 mg/dL Critically high 74-106 [facility] Comment on above: Performed By: #### C MP, URIC, PHOS, MG ####[facility] [address] [place] [address]Dr. Elba Anthony Potassium [Moles/Vol] 4.7 mmol/L Normal 3.5-5.[address] [facility] Comment on above: Performed By: #### C MP, URIC, PHOS, MG ####[facility] [address] [place] [address]Dr. Elba Anthony Protein [Mass/Vol] 8.5 g/dL Critically high 6.4-8.2 [facility] Comment on above: Performed By: #### C MP, URIC, PHOS, MG ####[facility] [address]zsg[address] [place] [address]Dr. Elba Anthony Sodium [Moles/Vol] 143 mmol/L Normal 136-[address] [facility] Comment on above: Performed By: #### C MP, URIC, PHOS, MG ####[facility] Ltqdxtim[address] [place], [place] [address]Dr. Nereydasiobhan Raj Urea nitrogen [Mass/Vol] 59.0 mg/dL Critically high 7.0-18.[address] [facility] Comment on above: Performed By: #### C MP, URIC, PHOS, MG ####[facility] Pc[address]fe[address] [place], [place] [address]Dr. Elba Anthony Urea nitrogen/Creatinine [Mass ratio] 22.4 mg/mg Normal [facility] Comment on above: Performed By: #### C MP, URIC, PHOS, MG ####[facility] Ebwrzp[address] [place], [place] [address]Dr. Elba Anthony UA RANDOMon 12-03-2022 Bilirubin Ql (U) Negative Normal NEGATIVE [facility] Comment on above: Performed By: #### U A ####[facility] [address] [place], [place] [address]Dr. Elba Anthony Clarity (U) CLEAR Normal CLEAR [facility] Comment on above: Performed By: #### U A ####[facility] Wntlfuovqp[address] [place], [place] [address]Dr. Elba Anthony Color (U) LT. YELLOW Normal YELLOW [facility] Comment on above: Performed By: #### U A ####[facility] Dqpgutp[address] [place], [place] [address]Dr. Elba Anthony Glucose Ql (U) Negative Normal NEGATIVE [facility] Comment on above: Performed By: #### U A ####[facility] Mnggwpohfx[address] [place], [place] [address]Dr. Elba Anthony Hemoglobin Ql (U) Negative Normal NEGATIVE [facility] Comment on above: Performed By: #### U A ####[facility] I[address]mqufe[address] [place], [place] [address]Dr. Elba Anthony Ketones Ql (U) Negative Normal NEGATIVE [facility] Comment on above: Performed By: #### U A ####[facility] Aksp[address]ubhu[address] [place], [place] [address]Dr. Elba Anthony LEUKOCYTES Negative Normal NEGATIVE [facility] Comment on above: Performed By: #### U A ####[facility] T[address]rag[address]gr[address] [place], [place] [address]Dr. Nereydasiobhan Anthony Nitrite Ql (U) Negative Normal NEGATIVE [facility] Comment on above: Performed By: #### U A ####[facility] Gyaaicdp[address] [place], [place] [address]Dr. Elba Anthony pH (U) 7.0 [pH] Normal 5-9 [facility] Comment on above: Performed By: #### U A ####[facility] W[address] [place], [place] [address]Dr. Elba Anthony SPEC GRAVITY <=1.005 Abnormal 1.005-<=1.[address] [facility] Comment on above: Performed By: #### U A ####[facility] [address]so[address]upqmf[address] [place], [place] [address]Dr. Elba Anthony UA PROTEIN TRACE Normal NEGATIVE/ TRACE [facility] Comment on above: Performed By: #### U A ####[facility] X[address] [place], [place] [address]Dr. Elba Anthony Urobilinogen Qn (U) 2.0 {Caden'U}/dL Abnormal 0.2 - 1. 0 [facility] Comment on above: Performed By: #### U A ####[facility] X[address]ost[address] [place], [place] [address]Dr. Elba Anthony URIC ACID SERUMon 12-03-2022 Urate [Mass/Vol] 9.0 mg/dL Critically high 3.5-7.2 [facility] Comment on above: Performed By: #### C MP, URIC, PHOS, MG ####[facility] P[address]ot[address] [place], [place] [address]Dr. Elba Anthony URINE T PROTEIN CREAT RATIOo n 12-03-2022 Protein (U) [Mass/Vol] 26.9 mg/dL Critically high <=12.0 [facility] Comment on above: Performed By: #### U RTPCR ####[facility] [address]ftq[address] [place], [place] [address]Dr. Elba Anthony UR PROT CREAT RAT 0.33 Normal [facility] Comment on above: Performed By: #### U RTPCR ####[facility] [address] [place] [address]Dr. Nereydasiobhan Raj URINE CREAT 82.74 mg/dL Normal 20.00-300.[address] [facility] Comment on above: Performed By: #### U RTPCR ####[facility] [address] [place] [address]Dr. Elba Anthony VITAMIN D 25 OHon 12-03-2022 VIT D 25-OH 14.7 ng/mL Normal [facility] Comment on above: Performed By: #### V ITAD ####[facility] T[address]comaz[address] [place], [place] [address]Dr. Elba Anthony VIT D RANGES SEE BELOW Normal [facility] Comment on above: Result Comment: <20 ng/mL Vit D deficient 20 - <30 ng/mL Vit D insufficient 30 - 100 ng/mL Vit D sufficient >100 ng/mL Potential Toxicity Performed By: #### V ITAD ####[facility] Uqbrvhsuup[address] [place], [place] [address]Dr. Elba Anthony US KIDNEYSon 11-27-2022 US KIDNEYS Normal [facility] PROF CHEM 8 (BAS METB)on Anion gap [Moles/Vol] 11.1 mmol/L Normal [facility] Comment on above: Performed By: #### B MP ####[facility] [address]awa[address] [place], [place] [address]DrLatoya Anthony Calcium [Mass/Vol] 9.0 mg/dL Normal 8.5-10.1 [facility] Comment on above: Performed By: #### B MP ####[facility] Dkxkmuzmar[address] [place], [place] [address]DrLatoya Anthony Chloride [Moles/Vol] 99 mmol/L Normal 98-107 [facility] Comment on above: Performed By: #### B MP ####[facility] Dak[address]avczda[address] [place], [place] [address]DrLatoya Anthony CO2 [Moles/Vol] 30.3 mmol/L Normal 21.0-32.[address] [facility] Comment on above: Performed By: #### B MP ####[facility] Q[address]uf[address] [place], [place] [address]Dr. Nereydasiobhan Raj Creatinine [Mass/Vol] 2.43 mg/dL Critically high 0.70-1.[address] [facility] Comment on above: Performed By: #### B MP ####[facility] [address] [place], [place] [address]Dr. Elba Anthony EGFR-AF NIUEAN 32 mL/min/1.73m2 Critically low >=[address] [facility] Comment on above: Performed By: #### B MP ####[facility] [address]kw[address]zy[address] [place], [place] [address]Dr. Elba Anthony EGFR-NON AF NIUEAN 27 mL/min/1.73m2 Critically low >=[address] [facility] Comment on above: Performed By: #### B MP ####[facility] L[address]qsir[address] [place], [place] [address]Dr. Elba Anthony Glucose [Mass/Vol] 142 mg/dL Critically high 74-106 [facility] Comment on above: Performed By: #### B MP ####[facility] [address] [place], [place] [address]Dr. Elba Anthony Potassium [Moles/Vol] 4.4 mmol/L Normal 3.5-5.[address] [facility] Comment on above: Performed By: #### B MP ####[facility] [facility] [address]jydirfocx[address] [place], [place] [address]Dr. Elba Anthony Sodium [Moles/Vol] 136 mmol/L Normal 136-145 [facility] Comment on above: Performed By: #### B MP ####[facility] Xqgadrtgpc[address] [place], [place] [address]Dr. Elba Anthony Urea nitrogen [Mass/Vol] 60.0 mg/dL Critically high 7.0-18.[address] [facility] Comment on above: Performed By: #### B MP ####[facility] Ahqvwsclss1968[address] [place], [place] [address]Dr. Elba Anthony Urea nitrogen/Creatinine [Mass ratio] 24.7 mg/mg Normal [facility] Comment on above: Performed By: #### B MP ####[facility] Myxowtpdrl8[address] [place], [place] [address]Dr. Elba Anthony CBC AUTO DIFFon 07-11-2022 BASO # 0.1 103/ul Normal 0.0-0.1 [facility] Comment on above: Performed By: #### C BC ####[facility] Fpxjdltxdk8814[address] [place], [place] [address]Dr. Elba Anthony Basophils/100 WBC (Bld) 0.8 % Normal 0.2-2.0 [facility] Comment on above: Performed By: #### C BC ####[facility] Fynuiwsihp[address] [place], [place] [address]Dr. Elba Anthony EO # 0.9 103/ul Critically high 0.0-0.7 [facility] Comment on above: Performed By: #### C BC ####[facility] Wjgawzppdd04[address] [place], [place] [address]Dr. Elba Anthony Eosinophils/100 WBC (Bld) 13.7 % Critically high 0.9-7.0 [facility] Comment on above: Performed By: #### C BC ####[facility] Hxbpgkhdog9426[address] [place], [place] [address]Dr. Elba Anthony Erythrocyte distribution width (RBC) [Ratio] 20.8 % Critically high 11.0-15.0 [facility] Comment on above: Performed By: #### C BC ####[facility] Kicttlappr2864[address] [place], [place] [address]Dr. Elba Anthony Hematocrit (Bld) [Volume fraction] 35.3 % Critically low 42.0-54.0 [facility] Comment on above: Performed By: #### C BC ####[facility] Cjkcbmvfzf86[address] [place], [place] [address]Dr. Elba Anthony Hemoglobin (Bld) [Mass/Vol] 11.5 g/dL Critically low 14.0-18.0 [facility] Comment on above: Performed By: #### C BC ####[facility] [address] [place] [address]Dr. Nereydasiobhan Raj IG # 0.04 10e3/ul Critically high 0.00-0.03 [facility] Comment on above: Performed By: #### C BC ####[facility] Enwftnvzox[address] [place] [address]Dr. Nereydasiobhan Anthony IG % 0.6 % Critically high 0.0-0.5 [facility] Comment on above: Performed By: #### C BC ####[facility] Jyuuyymsdg28[address] [place] [address]Dr. Elba Anthony LYMPH # 1.1 103/ul Critically low 1.2-3.8 [facility] Comment on above: Performed By: #### C BC ####[facility] Oiirpdaqcc26[address] [place] [address]Dr. Elba Anthony Lymphocytes/100 WBC (Bld) 17.2 % Critically low 20.5-60.0 [facility] Comment on above: Performed By: #### C BC ####[facility] Uhtyytyxwz3[address] [place] [address]Dr. Nereydasiobhan Anthony MANUAL DIFF REQ NO Normal [facility] Comment on above: Performed By: #### C BC ####[facility] Qtiexpdsim8322 [place] [address]Dr. Elba Raj MCH (RBC) [Entitic mass] 27.9 pg Normal 25.9-34.0 [facility] Comment on above: Performed By: #### C BC ####[facility] Pnpcnirilj7[address] [place] [address]Dr. Elba Raj MCHC (RBC) [Mass/Vol] 32.6 g/dL Normal 29.9-35.2 [facility] Comment on above: Performed By: #### C BC ####[facility] Qgvkpxuwab3418[address] [place], [place] [address]Dr. Nereydasiobhan Anthony MCV (RBC) [Entitic vol] 85.7 fL Normal 80.0-94.0 [facility] Comment on above: Performed By: #### C BC ####[facility] Fatswhsivv[address] [place] [id number]. Elba Raj MONO # 0.8 103/ul Normal 0.3-0.8 [facility] Comment on above: Performed By: #### C BC ####[facility] Deystrlyqi40[address] [place] [address]Dr. Elba Anthony Monocytes/100 WBC (Bld) 13.0 % Critically high 1.7-12.0 [facility] Comment on above: Performed By: #### C BC ####[facility] Cwhmgckmet7[address] [place] [address]Dr. Elba Anthony NEUT # 3.4 103/ul Normal 1.4-6.5 [facility] Comment on above: Performed By: #### C BC ####[facility] Fiegyocnhp099[address] [place], [place] [address]Dr. Elba Anthony Neutrophils/100 WBC (Bld) 54.7 % Normal 43.0-75.0 [facility] Comment on above: Performed By: #### C BC ####[facility] Zntukvgleh7407[address] [place], [place] [address]Dr. Elba Raj Platelet mean volume (Bld) [Entitic vol] 9.5 fL Normal 9.5-13.5 [facility] Comment on above: Performed By: #### C BC ####[facility] Ltjpiwcggk433[address] [place], [place] [address]Dr. Elba Anthony PLT 206 103/ul Normal 150-450 [facility] Comment on above: Performed By: #### C BC ####[facility] Romqxkqxyz1725[address] [place], [place] [address]Dr. Elba Anthony RBC 4.12 106/ul Critically low 4.70-6.10 [facility] Comment on above: Performed By: #### C BC ####[facility] Khdkuavfjy[address] [place], [place] [id number]. Elba Anthony WBC 6.2 103/ul Normal 4.0-11.0 [facility] Comment on above: Performed By: #### C BC ####[facility] Tiyntkirzf126[address] [place], [place] [address]Dr. Elba Anthony PROF CHEM 8 (BAS METB)on Anion gap [Moles/Vol] 10.9 mmol/L Normal Th [facility] Comment on above: Performed By: #### B MP ####[facility] Vauwazlizv65[address] [place] [address]Dr. Elba Raj Calcium [Mass/Vol] 8.9 mg/dL Normal 8.5-10.1 [facility] Comment on above: Performed By: #### B MP ####[facility] Xgvyjsiawc6607[address] [place], [place] [address]Dr. Elba Anthony Chloride [Moles/Vol] 103 mmol/L Normal 98-107 [facility] Comment on above: Performed By: #### B MP ####[facility] Lvbjzuvuke65[address] [place], [place] [address]Dr. Elba Anthony CO2 [Moles/Vol] 31.0 mmol/L Normal 21.0-32.[address] [facility] Comment on above: Performed By: #### B MP ####[facility] Wxtqrgkldh101[address] [place], [place] [address]Dr. Elba Anthony Creatinine [Mass/Vol] 2.18 mg/dL Critically high 0.70-1.30 [facility] Comment on above: Performed By: #### B MP ####[facility] Uxkuzxplht7146[address] [place], [place] [address]Dr. Elba Anthony EGFR-AF NIUEAN 36 mL/min/1.73m2 Critically low >=60 [facility] Comment on above: Performed By: #### B MP ####[facility] Wbtopnmyrf5616[address] [place], [place] [address]Dr. Elba Anthony EGFR-NON AF NIUEAN 30 mL/min/1.73m2 Critically low >=60 [facility] Comment on above: Performed By: #### B MP ####[facility] Oufwikuknd8378[address] [place], [place] [address]Dr. Elba Anthony Glucose [Mass/Vol] 99 mg/dL Normal 74-106 [facility] Comment on above: Performed By: #### B MP ####[facility] Hnfujpkdzj95[address] [place] [address]Dr. Elba Anthony Potassium [Moles/Vol] 3.9 mmol/L Normal 3.5-5.1 [facility] Comment on above: Performed By: #### B MP ####[facility] Gqfdwsajuc5245 [place] [address]Dr. Elba Anthony Sodium [Moles/Vol] 141 mmol/L Normal 136-145 [facility] Comment on above: Performed By: #### B MP ####[facility] Juivkckrax0027[address] [place], [place] [address]Dr. Elba Anthony Urea nitrogen [Mass/Vol] 40.0 mg/dL Critically high 7.0-18.0 [facility] Comment on above: Performed By: #### B MP ####[facility] Svglyjoijx7246[address] [place], [place] [address]Dr. Elba Anthony Urea nitrogen/Creatinine [Mass ratio] 18.3 mg/mg Normal [facility] Comment on above: Performed By: #### B MP ####[facility] Frbumgclzj5788[address] [place], [place] [address]Dr. Elba Anthony XR CHEST 2 Von 07-11-2022 XR CHEST 2 V Normal [facility] BNPon 07-10-2022 Natriuretic peptide B (Bld) [Mass/Vol] 2542.0 pg/mL Critically high <=900.0 [facility] Comment on above: Performed By: #### H STROPN, BNP, CMP ####[facility] Zuiyopcphk[address] [place], [place] [address]Dr. Elba Anthony CARDIAC FADY 3-6on 2 CK [Catalytic activity/Vol] 40 U/L Normal 39-308 [facility] Comment on above: Performed By: #### C MREP ####[facility] Dglmksutml[address] [place], [place] [address]Dr. Elba Anthony CK.MB [Mass/Vol] 0.92 ng/mL Normal <=3.60 [facility] Comment on above: Performed By: #### C MREP ####[facility] Pohpplkuis[address] [place], [place] [address]Dr. Elba Anthony HSTROP 49.6 pg/mL Normal 4.0-76.[address] [facility] Comment on above: Result Comment: CUT- OFF POINTS HAVE BEEN ESTABLISHED BASED ON THE FOURTH UNIVERSAL DEFINITIONS OF MYOCARDIALINFARCTION. THE UPPER REFERENCE LIMIT (URL) OF TROPONIN, DEFINED THE 99TH PERCENTILE OFcTnI DISTRIBUTION IN A REFERENCE POPULATION, HAS BEEN CONFIRMED THE DECISION THRESHOLDFOR NM DIAGNOSIS. Performed By: #### C MREP ####[facility] Jvaffmrytd88[address] [place] [address]Dr. Elba Anthony CK [Catalytic activity/Vol] 39 U/L Normal 39-308 [facility] Comment on above: Performed By: #### C MREP ####[facility] Occcqwmwar2686 [place] [address]Dr. Elba Raj CK.MB [Mass/Vol] 0.76 ng/mL Normal <=3.[address] [facility] Comment on above: Performed By: #### C MREP ####[facility] Dtqgxcoiqq1817[address] [place], [place] [address]Dr. Elba Anthony HSTROP 47.3 pg/mL Normal 4.0-76.[address] [facility] Comment on above: Result Comment: CUT- OFF POINTS HAVE BEEN ESTABLISHED BASED ON THE FOURTH UNIVERSAL DEFINITIONS OF MYOCARDIALINFARCTION. THE UPPER REFERENCE LIMIT (URL) OF TROPONIN, DEFINED THE 99TH PERCENTILE OFcTnI DISTRIBUTION IN A REFERENCE POPULATION, HAS BEEN CONFIRMED THE DECISION THRESHOLDFOR NM DIAGNOSIS. Performed By: #### C MREP ####[facility] Xmnkemdozd[address] [place] [address]Dr. Elba Anthony CBC AUTO DIFFon 07-10-2022 BASO # 0.1 103/ul Normal 0.0-0.1 [facility] Comment on above: Performed By: #### C BC ####[facility] Skculsfazw5917 [place] [address]DrLatoya Elba Raj Basophils/100 WBC (Bld) 1.1 % Normal 0.2-2.[address] [facility] Comment on above: Performed By: #### C BC ####[facility] Tfzfoumjnc7408 [place] [address]Dr. Elba Anthony EO # 0.6 103/ul Normal 0.0-0.7 [facility] Comment on above: Performed By: #### C BC ####[facility] Gsbvslnaib6716 [place] [address]Dr. Elba Anthony Eosinophils/100 WBC (Bld) 8.9 % Critically high 0.9-7.0 [facility] Comment on above: Performed By: #### C BC ####[facility] Ajnhlxvidb5485 [place] [address]Dr. Elba Anthony Erythrocyte distribution width (RBC) [Ratio] 21.1 % Critically high 11.0-15.0 [facility] Comment on above: Performed By: #### C BC ####[facility] Vjmyljijik3836[address] [place], [place] [address]Dr. Elba Anthony Hematocrit (Bld) [Volume fraction] 39.1 % Critically low 42.0-54.0 [facility] Comment on above: Performed By: #### C BC ####[facility] Htqzzucxjs188[address] [place], [place] [address]Dr. Elba Anthony Hemoglobin (Bld) [Mass/Vol] 12.6 g/dL Critically low 14.0-18.0 [facility] Comment on above: Performed By: #### C BC ####[facility] Yzxqwdlpkc[address] [place], [place] [address]Dr. Elba Anthony IG # 0.04 10e3/ul Critically high 0.00-0.03 [facility] Comment on above: Performed By: #### C BC ####[facility] Bcvgcqxtlw145[address] [place], [place] [address]Dr. Elba Anthony IG % 0.6 % Critically high 0.0-0.5 [facility] Comment on above: Performed By: #### C BC ####[facility] Vaferulkdn8329[address] [place], [place] [address]Dr. Elba Anthony LYMPH # 0.9 103/ul Critically low 1.2-3.8 [facility] Comment on above: Performed By: #### C BC ####[facility] Caewkqiyit16[address] [place] [address]Dr. Nereydasiobhan Anthony Lymphocytes/100 WBC (Bld) 13.8 % Critically low 20.5-60.0 [facility] Comment on above: Performed By: #### C BC ####[facility] Rmejatcjzs5250 [place] [address]Dr. Nereydasiobhan Anthony MANUAL DIFF REQ NO Normal [facility] Comment on above: Performed By: #### C BC ####[facility] Piklqpvgto4566 [place] [address]Dr. Nereydasiobhan Anthony MCH (RBC) [Entitic mass] 27.5 pg Normal 25.9-34.0 [facility] Comment on above: Performed By: #### C BC ####[facility] Atvewsccor58[address] [place], [place] [address]Dr. Elba Anthony MCHC (RBC) [Mass/Vol] 32.2 g/dL Normal 29.9-35.2 [facility] Comment on above: Performed By: #### C BC ####[facility] Xieljkbvjd5735[address] [place], [place] [address]Dr. Elba Anthony MCV (RBC) [Entitic vol] 85.2 fL Normal 80.0-94.0 [facility] Comment on above: Performed By: #### C BC ####[facility] Ovgoadrvsu5138[address] [place], [place] [address]Dr. Elba Anthony MONO # 0.9 103/ul Critically high 0.3-0.8 [facility] Comment on above: Performed By: #### C BC ####[facility] Fjnjoqxdoi5435[address] [place], [place] [address]Dr. Elba Anthony Monocytes/100 WBC (Bld) 14.0 % Critically high 1.7-12.0 [facility] Comment on above: Performed By: #### C BC ####[facility] Yzttptsnfo274[address] [place], [place] [address]Dr. Elba Anthony NEUT # 4.1 103/ul Normal 1.4-6.5 [facility] Comment on above: Performed By: #### C BC ####[facility] Nlbwyrepqv8035 [place] [address]Dr. Elba Anthony Neutrophils/100 WBC (Bld) 61.6 % Normal 43.0-75.0 [facility] Comment on above: Performed By: #### C BC ####[facility] Uhrenpslvd4752 [place] [address]Dr. Elba Anthony Platelet mean volume (Bld) [Entitic vol] 10.1 fL Normal 9.5-13.5 [facility] Comment on above: Performed By: #### C BC ####[facility] Yfuftbocno7512 [place] [address]Dr. Elba Anthony PLT 223 103/ul Normal 150-450 [facility] Comment on above: Performed By: #### C BC ####[facility] Nfgqrajlez9926 [place] [address]Dr. Elba Anthony RBC 4.59 106/ul Critically low 4.70-6.10 [facility] Comment on above: Performed By: #### C BC ####[facility] Hoptbbmfcn0263 [place] [address]Dr. Elba Anthony WBC 6.7 103/ul Normal 4.0-11.0 [facility] Comment on above: Performed By: #### C BC ####[facility] Hxlhgngijg6991 [place] [address]Dr. Elba Anthony Covid-19 PCR (CVDTB)on SARS-CoV-2 (COVID-19) RNA ELIZABETH+probe Ql (Unsp spec) Not detected Normal NOT DETECTED [facility] Comment on above: Result Comment: When diagnostic [...] for this test is supported by the [employer] and Human Service's declaration that [...] be used). Performed By: #### C VDTB ####[facility] Dyxbnxcffr232[address] [place], [place] [address]Dr. Nereydasiobhan Anthony ER URINE PROFILEon 2 Bilirubin Ql (U) Negative Normal NEGATIVE [facility] Comment on above: Performed By: #### E RUR ####[facility] Bigoevxnay4847[address] [place], [place] [address]Dr. Nereydalan Anthony Clarity (U) CLEAR Normal CLEAR [facility] Comment on above: Performed By: #### E RUR ####[facility] Fmekpquxdz9005[address] [place], [place] [address]Dr. Nereydalan Anthony Color (U) LT. YELLOW Normal YELLOW [facility] Comment on above: Performed By: #### E RUR ####[facility] Cvhixtyynz778[address] [place], [place] [address]Dr. Elba Anthony ERUAHD A micrscopic examina tion will be performed if indicated. Normal [facility] Comment on above: Performed By: #### E RUR ####[facility] Gclhcanzpd069[address] [place], [place] [address]Dr. Nereydalan Anthony Glucose Ql (U) Negative Normal NEGATIVE [facility] Comment on above: Performed By: #### E RUR ####[facility] Gktrarnchj585[address] [place], [place] [address]Dr. Nereydalan Anthony Hemoglobin Ql (U) Negative Normal NEGATIVE [facility] Comment on above: Performed By: #### E RUR ####[facility] Xqqulbiujb88[address] [place], [place] [address]Dr. Nereydalan Anthony Ketones Ql (U) Negative Normal NEGATIVE [facility] Comment on above: Performed By: #### E RUR ####[facility] Gwsvgdtnsn257[address] [place], [place] [address]Dr. Nereydalan Anthony LEUKOCYTES Negative Normal NEGATIVE [facility] Comment on above: Performed By: #### E RUR ####[facility] Mfwvhdmpfi0797 [place] [address]Dr. Elba Anthony Nitrite Ql (U) Negative Normal NEGATIVE [facility] Comment on above: Performed By: #### E RUR ####[facility] Ygsdrxxqum3986[address] [place], [place] [address]Dr. Elba Anthony pH (U) 7.0 [pH] Normal 5-[address] [facility] Comment on above: Performed By: #### E RUR ####[facility] Qsnkeucwuo026[address] [place], [place] [address]Dr. Elba Anthony SPEC GRAVITY 1.010 Normal 1.005-<=1.[address] [facility] Comment on above: Performed By: #### E RUR ####[facility] Hptiiofrxx1925[address] [place], [place] [address]Dr. Elba Anthony UA PROTEIN Negative Normal NEGATIVE/ TRACE [facility] Comment on above: Performed By: #### E RUR ####[facility] Vqtnwezems474[address] [place], [place] [address]Dr. Elba Anthony UR MICRO IND NOT INDICATED Normal [facility] Comment on above: Performed By: #### E RUR ####[facility] Nafnggfisw22[address] [place], [place] [address]Dr. Elba Anthony Urobilinogen Qn (U) 0.2 {Caden'U}/dL Normal 0.2 - 1. [address] [facility] Comment on above: Performed By: #### E RUR ####[facility] Vptcaoserf[address] [place], [place] [address]Dr. Elba Anthony PROF 14(COMP METB)on 022 Albumin [Mass/Vol] 3.3 g/dL Critically low 3.4-5.0 [facility] Comment on above: Performed By: #### H STROPN, BNP, CMP ####[facility] Kxgbeqydfm5464[address] [place], [place] [address]Dr. Elba Anthony Albumin/Globulin [Mass ratio] 0.8 {ratio} Normal [facility] Comment on above: Performed By: #### H STROPN, BNP, CMP ####[facility] Tudohhanui7350 [place] [address]Dr. Elba Anthony ALP [Catalytic activity/Vol] 114 U/L Normal 46-116 [facility] Comment on above: Performed By: #### H STROPN, BNP, CMP ####[facility] Hfugxzcgal2944 [place] [address]Dr. Elba Anthony ALT [Catalytic activity/Vol] 23 U/L Normal 16-63 [facility] Comment on above: Performed By: #### H STROPN, BNP, CMP ####[facility] Bbmsotovfj0889 [place] [address]Dr. Elba Anthony Anion gap [Moles/Vol] 9.5 mmol/L Normal [facility] Comment on above: Performed By: #### H STROPN, BNP, CMP ####[facility] Wvomptvbwj95[address] [place], [place] [address]Dr. Elba Anthony AST [Catalytic activity/Vol] 32 U/L Normal 15-37 [facility] Comment on above: Performed By: #### H STROPN, BNP, CMP ####[facility] Ncdqjvrxnc02[address] [place], [place] [address]Dr. Elba Anthony Bilirubin [Mass/Vol] 0.7 mg/dL Normal 0.2-1.[address] [facility] Comment on above: Performed By: #### H STROPN, BNP, CMP ####[facility] Wchxraanla[address] [place], [place] [address]Dr. Elba Anthony Calcium [Mass/Vol] 9.1 mg/dL Normal 8.5-10.1 [facility] Comment on above: Performed By: #### H STROPN, BNP, CMP ####[facility] Ookcnskjnf98[address] [place], [place] [address]Dr. Elba Anthony Chloride [Moles/Vol] 99 mmol/L Normal 98-107 [facility] Comment on above: Performed By: #### H STROPN, BNP, CMP ####[facility] Antatjvada[address] [place], [place] [address]Dr. Elba Anthony CO2 [Moles/Vol] 33.2 mmol/L Critically high 21.0-32.0 [facility] Comment on above: Performed By: #### H STROPN, BNP, CMP ####[facility] Afroaoenxi6444 [place] [address]Dr. Elba Anthony Creatinine [Mass/Vol] 2.31 mg/dL Critically high 0.70-1.30 [facility] Comment on above: Performed By: #### H STROPN, BNP, CMP ####[facility] Unmlxkkdas5165 [place] [address]Dr. Elba Anthony EGFR-AF NIUEAN 34 mL/min/1.73m2 Critically low >=60 [facility] Comment on above: Performed By: #### H STROPN, BNP, CMP ####[facility] Swjthnqjkt9955 [place] [address]Dr. Elba Anthony EGFR-NON AF NIUEAN 28 mL/min/1.73m2 Critically low >=60 [facility] Comment on above: Performed By: #### H STROPN, BNP, CMP ####[facility] Yrhozmeskd0708 [place] [address]Dr. Elba Anthony Globulin (S) [Mass/Vol] 4.3 g/dL Normal [facility] Comment on above: Performed By: #### H STROPN, BNP, CMP ####[facility] Hdnukvqxfp9109 [place] [address]Dr. Elba Anthony Glucose [Mass/Vol] 98 mg/dL Normal 74-106 [facility] Comment on above: Performed By: #### H STROPN, BNP, CMP ####[facility] Jmctsvczpj5880 [place] [address]Dr. Elba Anthony Potassium [Moles/Vol] 4.7 mmol/L Normal 3.5-5.1 [facility] Comment on above: Performed By: #### H STROPN, BNP, CMP ####[facility] Nmtkunqaqd9558 [place] [address]Dr. Elba Anthony Protein [Mass/Vol] 7.6 g/dL Normal 6.4-8.2 [facility] Comment on above: Performed By: #### H STROPN, BNP, CMP ####[facility] Cssseiylsb2281 [place] [address]Dr. Elba Anthony Sodium [Moles/Vol] 137 mmol/L Normal 136-[address] [facility] Comment on above: Performed By: #### H STROPN, BNP, CMP ####[facility] Gkugaudpft4[address] [place], [place] [address]Dr. Elba Anthony Urea nitrogen [Mass/Vol] 47.0 mg/dL Critically high 7.0-18.[address] [facility] Comment on above: Performed By: #### H STROPN, BNP, CMP ####[facility] Lukfvakrvs[address] [place], [place] [address]Dr. Elba Anthony Urea nitrogen/Creatinine [Mass ratio] 20.3 mg/mg Normal [facility] Comment on above: Performed By: #### H STROPN, BNP, CMP ####[facility] Qamnecerjo6[address] [place], [place] [address]Dr. Elba Anthony PROTIMEon 07-10-2022 INR Coag (PPP) [Relative time] 1.07 {INR} Normal [facility] Comment on above: Performed By: #### P T, PTT ####[facility] [id number] [place], [place] [address]Dr. Elba Anthony INR GUIDELINES SEE BELOW Normal [facility] Comment on above: Result Comment: FUAD RED INR: 2.0 - 3.0 CONDITIONS NOT LISTED BELOW 2.5 - 3.5 FOR PROSTHETIC HEART VALVE REPLACEMENT 2.5 - 3.5 RECURRENT THROMBOSIS Performed By: #### P T, PTT ####[facility] [id number] [place], [place] [address]Dr. Elba Anthony PT Coag (PPP) [Time] 11.5 s Normal 9.0-11.[address] [facility] Comment on above: Performed By: #### P T, PTT ####[facility] [id number] [place], [place] [address]Dr. Elba Anthony PTTon 07-10-2022 aPTT Coag (Bld) [Time] 34.7 s Normal 22.3-36.2 Th e [facility] Comment on above: Performed By: #### P T, PTT ####[facility] [id number] [place], [place] [address]No. Elba Anthony TROPONIN, HIGH SENSITIVITYon 07-10-2022 HSTROP 45.2 pg/mL Normal 4.0-76.1 [facility] Comment on above: Result Comment: CUT- OFF POINTS HAVE BEEN ESTABLISHED BASED ON THE FOURTH UNIVERSAL DEFINITIONS OF MYOCARDIALINFARCTION. THE UPPER REFERENCE LIMIT (URL) OF TROPONIN, DEFINED THE 99TH PERCENTILE OFcTnI DISTRIBUTION IN A REFERENCE POPULATION, HAS BEEN CONFIRMED THE DECISION THRESHOLDFOR NM DIAGNOSIS. Performed By: #### H STROPN, BNP, CMP ####[facility] [id number] [place], [place] [address]Tm. Elba Anthony XR CHEST 1 Von 07-10-2022 XR CHEST 1 V Normal [facility] US venous duplex LE BIon US venous duplex LE BI [facility] [place] [address] Ultrasound Report Signed Patient: Man Patel MR#: [id number] : 1950 Acct:[id number] Age/Sex: 72 / M ADM Date: 06/27/22 Loc: ER Room: Type: [facility] ER Attending Dr: Ordering Provider: Melva [...] Balwinder Watson MD06/28/2022 8:49 AM Dictation Location: [facility] Tech: Mayra Henry Transcribed By: KELLI 06/28/22848 Dictated By: Balwinder Watson MD 06/28/22848 Signed By: 06/28/22848 [facility] Activated partial thrombopla stin time (aPTT) in platelet poor plasma by coagulation aOrdered By: Melva Owusu on 06-27-2022 aPTT Coag (PPP) [Time] 36.4 s 25.1-36.5 [facility] Albumin [Mass/volume] in Ser um or PlasmaOrdered By: Melva Owusu on 06-27-2022 Albumin [Mass/Vol] 3.1 g/dL 3.2-5.5 [facility] B-Type Natriuretic Peptideon 06-27-2022 Natriuretic peptide B (Bld) [Mass/Vol] 367.0 pg/mL High 5-100 [facility] Comment on above: Result Comment: PERF ORMED BY: [place] [address] GARCIA M.D. Performed By: #### [facility] #### [address] Basophils Auto (Bld) [#/Vol] Ordered By: Melva Owusu on 06-27-2022 Basophils (Bld) [#/Vol] 0.0 10*3/uL 0.0-0.2 [facility] Basophils/100 WBC Auto (Bld) Ordered By: Melva Owusu on 06-27-2022 Basophils/100 WBC (Bld) 0.6 % . [facility] Bilirubin Test strip Ql (U)O rdered By: Melva Owusu on 06-27-2022 Bilirubin Ql (U) Negative Negative [facility] Blood Cultureon 06-27-2022 Bacteria identified Cx Nom (Bld) NO GROWTH 5 DAYS PERFORMED BY: [place] [address] G[address]. [facility] Comment on above: Performed By: #### C UBLD, LACTIC #### [facility] [address] Bacteria identified Cx Nom (Bld) NO GROWTH 5 DAYS PERFORMED BY: [place] [address] GARC[address].D. [facility] Comment on above: Performed By: #### C UBLD, LACTIC #### [facility] [address] COVID-19 Antigenon 2 COVID-19 Antigen Healthcare [...] developed and its performance characteristic determined by [place] and validated at [facility]. This test has not been FDA [...] for SARS Antigen by MORIAH PERFORMED BY: [place] [address] GARCIA M.D. Normal [facility] Comment on above: Performed By: #### S OFCATALINA, COVID-19 JOSE #### [facility] [address] [place] [address] COVID-19 SOFIAOrdered By: Fito Chavarria on 06-27-2022 SARS-CoV+SARS-CoV-2 (COVID-19) Ag IA.rapid Ql (Resp) Negative Negative [facility] Comment on above: This is a duplicate Jose SARS Antigen (MORIAH) result to be used for statistical tracking purpose only. Coagulation Profileon 2021 aPTT Coag (Bld) [Time] 36.4 s Normal 25.1-36.5 [facility] Comment on above: Result Comment: PERF ORMED BY: [place] [address] GARCIA M.D. Performed By: #### S OFIANJAM, COVID-19 JOSE #### [facility] [address] [place] [address] INR Coag (PPP) [Relative time] 1.5 {INR} Normal [facility] Comment on above: Result Comment: INR [...] By: #### S OFIANJAM, COVID-19 JOSE #### [facility] [address] [place] [address] PT Coag (PPP) [Time] 17.3 s High 9.0-12.9 [facility] Comment on above: Performed By: #### S OFIANEG, COVID-19 JOSE #### [address] Color Auto (U)Ordered By: Lisa Owusu on 06-27-2022 Color (U) Yellow Yellow [facility] Complete Blood Count Auto Di ffon 06-27-2022 Basophils (Bld) [#/Vol] 0.0 10*3/uL Normal 0.0-0.2 [facility] Comment on above: Result Comment: PERF ORMED BY: [place] [address] GARCIA M.D. Performed By: #### B IT APPLICATIONS DEVELOPER, CBC, PP, CMP #### [address] Basophils/100 WBC (Bld) 0.6 % Normal . [facility] Comment on above: Performed By: #### B IT APPLICATIONS DEVELOPER, CBC, PP, CMP #### [address] Eosinophils (Bld) [#/Vol] 0.6 10*3/uL High 0.0-0.45 [facility] Comment on above: Performed By: #### B IT APPLICATIONS DEVELOPER, CBC, PP, CMP #### [address] Eosinophils/100 WBC (Bld) 9.4 % Normal . [facility] Comment on above: Performed By: #### B IT APPLICATIONS DEVELOPER, CBC, PP, CMP #### [address] Erythrocyte distribution width (RBC) [Ratio] 24.6 % High 12.0-14.8 [facility] Comment on above: Performed By: #### B IT APPLICATIONS DEVELOPER, CBC, PP, CMP #### [address] Hematocrit (Bld) [Volume fraction] 39.7 % Normal 38.8-50.0 [facility] Comment on above: Performed By: #### B IT APPLICATIONS DEVELOPER, CBC, PP, CMP #### [address] Hemoglobin (Bld) [Mass/Vol] 12.9 g/dL Low 13.0-17.0 [facility] Comment on above: Performed By: #### B IT APPLICATIONS DEVELOPER, CBC, PP, CMP #### [address] Lymphocytes (Bld) [#/Vol] 0.6 10*3/uL Low 1.00-4.8 [facility] Comment on above: Performed By: #### B IT APPLICATIONS DEVELOPER, CBC, PP, CMP #### [address] Lymphocytes/100 WBC (Bld) 9.3 % Normal . [facility] Comment on above: Performed By: #### B IT APPLICATIONS DEVELOPER, CBC, PP, CMP #### [address] MCH (RBC) [Entitic mass] 26.8 pg Low 27.5-35.2 [facility] Comment on above: Performed By: #### B IT APPLICATIONS DEVELOPER, CBC, PP, CMP #### [address] MCV (RBC) [Entitic vol] 82.7 fL Low 83.5-101 [facility] Comment on above: Performed By: #### B IT APPLICATIONS DEVELOPER, CBC, PP, CMP #### [address] Mean Corpuscular HGB Conc 32.4 g/dL Low 32.5-35.6 [facility] Comment on above: Performed By: #### B IT APPLICATIONS DEVELOPER, CBC, PP, CMP #### [place] [address] [place] Monocytes (Bld) [#/Vol] 0.6 10*3/uL Normal 0.0-0.8 [facility] Comment on above: Performed By: #### B IT APPLICATIONS DEVELOPER, CBC, PP, CMP #### [address] Monocytes/100 WBC (Bld) 9.4 % Normal . [facility] Comment on above: Performed By: #### B IT APPLICATIONS DEVELOPER, CBC, PP, CMP #### [address] Neutrophils (Bld) [#/Vol] 4.7 10*3/uL Normal 1.8-7.7 [facility] Comment on above: Performed By: #### B IT APPLICATIONS DEVELOPER, CBC, PP, CMP #### [address] Neutrophils/100 WBC (Bld) 71.3 % Normal . [facility] Comment on above: Performed By: #### B IT APPLICATIONS DEVELOPER, CBC, PP, CMP #### [address] Nucleated RBC/100 WBC (Bld) [Ratio] 0.0 % Normal 0-0.5 [facility] Comment on above: Performed By: #### B IT APPLICATIONS DEVELOPER, CBC, PP, CMP #### [address] Platelet mean volume (Bld) [Entitic vol] 8.0 fL Normal 6.6-10.1 [facility] Comment on above: Performed By: #### B IT APPLICATIONS DEVELOPER, CBC, PP, CMP #### [address] Platelets (Bld) [#/Vol] 163 10*3/uL Normal 150-450 [facility] Comment on above: Performed By: #### B IT APPLICATIONS DEVELOPER, CBC, PP, CMP #### [address] RBC (Bld) [#/Vol] 4.80 10*6/uL Normal 3.90-5.60 [facility] Comment on above: Performed By: #### B IT APPLICATIONS DEVELOPER, CBC, PP, CMP #### [place] [address] [place] WBC (Bld) [#/Vol] 6.5 10*3/uL Normal 4.5-11.0 [facility] Comment on above: Performed By: #### B IT APPLICATIONS DEVELOPER, CBC, PP, CMP #### [address] Comprehensive Metabolic Pane jeff 06-27-2022 Albumin [Mass/Vol] 3.1 g/dL Low 3.2-5.5 [facility] Comment on above: Performed By: #### B IT APPLICATIONS DEVELOPER, CBC, PP, CMP #### [facility] [address] Albumin/Globulin [Mass ratio] 0.8 {ratio} Normal [facility] Comment on above: Performed By: #### B IT APPLICATIONS DEVELOPER, CBC, PP, CMP #### [facility] [address] ALP [Catalytic activity/Vol] 98 U/L High 32-92 [facility] Comment on above: Performed By: #### B IT APPLICATIONS DEVELOPER, CBC, PP, CMP #### [facility] [address] ALT [Catalytic activity/Vol] 28 U/L Normal 10-60 [facility] Comment on above: Performed By: #### B IT APPLICATIONS DEVELOPER, CBC, PP, CMP #### [facility] [address] Anion gap [Moles/Vol] 15.0 mmol/L Normal 6.0-15.0 [facility] Comment on above: Performed By: #### B IT APPLICATIONS DEVELOPER, CBC, PP, CMP #### [facility] [address] AST [Catalytic activity/Vol] 32 U/L Normal 10-42 [facility] Comment on above: Performed By: #### B IT APPLICATIONS DEVELOPER, CBC, PP, CMP #### [facility] [address] [place] [address] [place] Bilirubin [Mass/Vol] 0.9 mg/dL Normal 0.3-1.2 [facility] Comment on above: Performed By: #### B IT APPLICATIONS DEVELOPER, CBC, PP, CMP #### [facility] [address] [place] [id number] [place] Calcium [Mass/Vol] 9.4 mg/dL Normal 8.2-10.2 [facility] Comment on above: Performed By: #### B IT APPLICATIONS DEVELOPER, CBC, PP, CMP #### [address] Chloride [Moles/Vol] 96 mmol/L Normal 95-114 [facility] Comment on above: Performed By: #### B IT APPLICATIONS DEVELOPER, CBC, PP, CMP #### [address] CO2 [Moles/Vol] 28.8 mmol/L Normal 22.0-30.0 [facility] Comment on above: Performed By: #### B IT APPLICATIONS DEVELOPER, CBC, PP, CMP #### [address] Creatinine [Mass/Vol] 2.48 mg/dL High 0.64-1.27 [facility] Comment on above: Performed By: #### B IT APPLICATIONS DEVELOPER, CBC, PP, CMP #### [address] Creatinine Clr Calc Pharmacy 33.36 [facility] Comment on above: Result Comment: PERF ORMED BY: [place] [address] GARCIA M.D. Performed By: #### B IT APPLICATIONS DEVELOPER, CBC, PP, CMP #### [address] Estimated GFR ( Andra 31 [facility] Comment on above: Result Comment: GFR estimated reference range: According to KDOQI guidelines, <60 ml/min/1.73m2 is sufficient to diagnose a patient with chronic kidney disease. Performed By: #### B IT APPLICATIONS DEVELOPER, CBC, PP, CMP #### [address] Estimated GFR (Non- Am 26 [facility] Comment on above: Performed By: #### B IT APPLICATIONS DEVELOPER, CBC, PP, CMP #### [address] Globulin (S) [Mass/Vol] 4.1 g/dL [facility] Comment on above: Performed By: #### B IT APPLICATIONS DEVELOPER, CBC, PP, CMP #### [address] [place] [address] [place] Glucose [Mass/Vol] 128 mg/dL High 70-100 [facility] Comment on above: Result Comment: [place] Glucose Reference Range is dependent on time and content of last meal. Glucose of more than 200 mg/dL in a nonstressed, ambulatory subject supports the diagnosis of Diabetes Mellitus. ADA recommended reference range Performed By: #### B IT APPLICATIONS DEVELOPER, CBC, PP, CMP #### [facility] [address] Potassium [Moles/Vol] 3.8 mmol/L Normal 3.5-5.1 [facility] Comment on above: Performed By: #### B IT APPLICATIONS DEVELOPER, CBC, PP, CMP #### [address] Protein [Mass/Vol] 7.2 g/dL Normal 6.1-7.9 [facility] Comment on above: Performed By: #### B IT APPLICATIONS DEVELOPER, CBC, PP, CMP #### [address] Sodium [Moles/Vol] 136 mmol/L Normal 136-146 [facility] Comment on above: Performed By: #### B IT APPLICATIONS DEVELOPER, CBC, PP, CMP #### [address] Urea nitrogen [Mass/Vol] 40 mg/dL High 9-23 [facility] Comment on above: Performed By: #### B IT APPLICATIONS DEVELOPER, CBC, PP, CMP #### [address] Creatinine and Glomerular fi ltration rate.predicted panel (S/P/Bld)Ordered By: Melva Owusu on 06-27-2022 Creatinine [Mass/Vol] 2.48 mg/dL 0.64-1.27 [facility] Eosinophils Auto (Bld) [#/Vo l]Ordered By: Melva Owusu on 06-27-2022 Eosinophils (Bld) [#/Vol] 0.6 10*3/uL 0.0-0.45 [facility] Eosinophils/100 WBC Auto (Bl d)Ordered By: Melva Owusu on 06-27-2022 Eosinophils/100 WBC (Bld) 9.4 % . [facility] Erythrocyte distribution wid th Auto (RBC) [Ratio]Ordered By: Melva Owusu on 06-27-2022 Erythrocyte distribution width (RBC) [Ratio] 24.6 % 12.0-14.8 [facility] Estimated glomerular filtrat ion rate (GFR) non- AmericanOrdered By: Melva Owusu on 06-27-2022 GFR/1.73 sq M.predicted among non-blacks MDRD (S/P/Bld) [Vol rate/Area] 26 mL/Min [facility] Globulin Calc (S) [Mass/Vol] Ordered By: Melva Owusu on 06-27-2022 Globulin (S) [Mass/Vol] 4.1 g/dL [facility] Hematocrit Auto (Bld) [Volum e fraction]Ordered By: Melva Owusu on 06-27-2022 Hematocrit (Bld) [Volume fraction] 39.7 % 38.8-50.0 [facility] Hemoglobin [Mass/volume] in BloodOrdered By: Melva Owusu on 06-27-2022 Hemoglobin (Bld) [Mass/Vol] 12.9 g/dL 13.0-17.0 [facility] Ketones Auto test strip (U) [Mass/Vol]Ordered By: Melva Owusu on 06-27-2022 Ketones (U) [Mass/Vol] Negative Negative [facility] Laboratory - Chemistry and C hemistry - challengeOrdered By: Melva Owusu on 06-27-2022 Natriuretic peptide B (Bld) [Mass/Vol] 367.0 pg/mL 5-100 [facility] Laboratory - CoagulationOrde red By: Melva Owusu on 06-27-2022 PT Coag (PPP) [Time] 17.3 s 9.0-12.9 [facility] Laboratory - Hematology and Cell countsOrdered By: Melva Owusu on 06-27-2022 Nucleated RBC/100 WBC (Bld) [Ratio] 0.0 % 0-0.5 [facility] Lactic Acidon 06-27-2022 Lactate [Moles/Vol] 1.7 mmol/L Normal 0.5-2.2 [facility] Comment on above: Result Comment: PERF ORMED BY: [place] [address] GARCIA M.D. Performed By: #### C UBLD, LACTIC #### [facility] [address] Leukocytes [#/volume] in Blo od by Automated countOrdered By: Melva Owusu on 06-27-2022 WBC (Bld) [#/Vol] 6.5 10*3/uL 4.5-11.0 [facility] Lymphocytes Auto (Bld) [#/Vo l]Ordered By: Melva Owusu on 06-27-2022 Lymphocytes (Bld) [#/Vol] 0.6 10*3/uL 1.00-4.8 [facility] Lymphocytes/100 WBC Auto (Bl d)Ordered By: Melva Owusu on 06-27-2022 Lymphocytes/100 WBC (Bld) 9.3 % . [facility] MCH Auto (RBC) [Entitic mass ]Ordered By: Melva Owusu on 06-27-2022 MCH (RBC) [Entitic mass] 26.8 pg 27.5-35.2 [facility] MCHC Auto (RBC) [Mass/Vol]Or dered By: Melva Owusu on 06-27-2022 MCHC (RBC) [Mass/Vol] 32.4 g/dL 32.5-35.6 [facility] MCV Auto (RBC) [Entitic vol] Ordered By: Melva Owusu on 06-27-2022 MCV (RBC) [Entitic vol] 82.7 fL 83.5-101 [facility] Monocytes Auto (Bld) [#/Vol] Ordered By: Melva Owusu on 06-27-2022 Monocytes (Bld) [#/Vol] 0.6 10*3/uL 0.0-0.8 [facility] Monocytes/100 WBC Auto (Bld) Ordered By: Melva Owusu on 06-27-2022 Monocytes/100 WBC (Bld) 9.4 % . [facility] Neutrophils Auto (Bld) [#/Vo l]Ordered By: Melva Owusu on 06-27-2022 Neutrophils (Bld) [#/Vol] 4.7 10*3/uL 1.8-7.7 [facility] Neutrophils/100 WBC Auto (Bl d)Ordered By: Melva Owusu on 06-27-2022 Neutrophils/100 WBC (Bld) 71.3 % . [facility] Nitrite Test strip Ql (U)Ord ered By: Melva Owusu on 06-27-2022 Nitrite Ql (U) Negative Negative [facility] No Panel InformationOrdered By: Melva Owusu on 06-27-2022 Estimated GFR () 31 mL/Min [facility] Comment on above: GFR estimated refere nce range: According to KDOQI guidelines, <60 ml/min/1.73m2 is sufficient to diagnose a patient with chronic kidney disease. Pharmacy Creatinine Clearance (Chem 33.36 [facility] No Panel InformationOrdered By: Balwinder Chavarria on 06-27-2022 SARS Antigen (LFIA) [facility] Platelet mean volume Auto (B ld) [Entitic vol]Ordered By: Melva Owusu on 06-27-2022 Platelet mean volume (Bld) [Entitic vol] 8.0 fL 6.6-10.1 [facility] Platelet poor plasma interna tional normalized ratio (INR) by coagulation assay (relatOrdered By: Melva Owusu on 06-27-2022 INR Coag (PPP) [Relative time] 1.5 {INR} [facility] Comment on above: INR Therapeutic Rang [...] 06-27-2022 Platelets (Bld) [#/Vol] 163 10*3/uL 150-450 [facility] Protein Auto test strip (U) [Mass/Vol]Ordered By: Melva Owusu on 06-27-2022 Protein (U) [Mass/Vol] Negative Negative [facility] Protein [Mass/volume] in Ser um or PlasmaOrdered By: Melva Owusu on 06-27-2022 Protein [Mass/Vol] 7.2 g/dL 6.1-7.9 [facility] RBC Auto (Bld) [#/Vol]Ordere d By: Melva Owusu on 06-27-2022 RBC (Bld) [#/Vol] 4.80 10*6/uL 3.90-5.60 [facility] Serum or plasma alanine [place] otransferase measurement without P-5'-P (enzymatic activiOrdered By: Melva Owusu on 06-27-2022 ALT No additional P-5'-P [Catalytic activity/Vol] 28 U/L [facility] Serum or plasma albumin/glob ulin mass ratioOrdered By: Melva Owusu on 06-27-2022 Albumin/Globulin [Mass ratio] 0.8 {ratio} [facility] Serum or plasma alkaline mumtaz sphatase measurement (enzymatic activity/volume)Ordered By: Melva Owusu on 06-27-2022 ALP [Catalytic activity/Vol] 98 U/L 32-92 [facility] Serum or plasma anion gap de terminationOrdered By: Melva Owusu on 06-27-2022 Anion gap [Moles/Vol] 15.0 mmol/L 6.0-15.0 [facility] Serum or plasma aspartate am inotransferase measurement (enzymatic activity/volume)Ordered By: Melva Owusu 06-27-2022 AST [Catalytic activity/Vol] 32 U/L [facility] Serum or plasma calcium brii urement (mass/volume)Ordered By: Melva Owusu on 06-27-2022 Calcium [Mass/Vol] 9.4 mg/dL 8.2-10.2 [facility] Serum or plasma chloride edgar surement (moles/volume)Ordered By: Mevla Owusu on 06-27-2022 Chloride [Moles/Vol] 96 mmol/L 95-114 [facility] Serum or plasma glucose brii urement (mass/volume)Ordered By: Melva Kristenglendy on 06-27-2022 Glucose [Mass/Vol] 128 mg/dL 70-100 [facility] Comment on above: ADA recommended refe rence rangeRandom Glucose Reference Range is dependent on time and content of last meal. Glucose of more than 200 mg/dL in a nonstressed, ambulatory subject supports the diagnosis of Diabetes Mellitus. Serum or plasma potassium me asurement (moles/volume)Ordered By: Melva Owusu on 06-27-2022 Potassium [Moles/Vol] 3.8 mmol/L 3.5-5.1 [facility] Serum or plasma sodium measu rement (moles/volume)Ordered By: Melva Owusu on 06-27-2022 Sodium [Moles/Vol] 136 mmol/L 136-146 [facility] Serum or plasma total biliru bin measurement (mass/volume)Ordered By: Melva Owusu on 06-27-2022 Bilirubin [Mass/Vol] 0.9 mg/dL 0.3-1.2 [facility] Serum or plasma total carbon dioxide measurement (moles/volume)Ordered By: Melva Owusu on 06-27-2022 CO2 [Moles/Vol] 28.8 mmol/L 22.0-30.0 [facility] Serum or plasma urea nitroge n measurement (mass/volume)Ordered By: Melva Owusu on 06-27-2022 Urea nitrogen [Mass/Vol] 40 mg/dL 9- [facility] Jose Ag Negativeon 06-27-20 Jose Ag Negative Negative Normal Negative [facility] Comment on above: Result Comment: This is a duplicate Jose SARS Antigen (MORIAH) result to be used for statistical tracking purpose only. PERFORMED BY: [facility] [address] [place] [address] GARCIA M.D. Performed By: #### S OFIANEG, COVID-19 JOSE #### [facility] [address] [place] [address] Specific gravity Auto test s trip (U) [Rel density]Ordered By: Melva Owusu on 06-27-2022 Specific gravity (U) [Rel density] 1.012 1.001-1.030 [facility] Urinalysison 06-27-2022 Appearance (U) Clear Normal Clear [facility] Comment on above: Order Comment: Name Collection Type:: Clean-Voided Midstream Performed By: #### U A #### [place] [address] [place] Bilirubin,Urine Negative Normal Negative [facility] Comment on above: Order Comment: Name Collection Type:: Clean-Voided Midstream Performed By: #### U A #### [address] Color (U) Yellow Normal Yellow [facility] Comment on above: Order Comment: Name Collection Type:: Clean-Voided Midstream Performed By: #### U A #### [facility] [address] [place] [address] [place] Glucose Ql (U) Normal Normal Normal [facility] Comment on above: Order Comment: Name Collection Type:: Clean-Voided Midstream Performed By: #### U A #### [facility] [address] [place] [address] [place] Ketones Ql (U) Negative Normal Negative [facility] [facility] Comment on above: Order Comment: Name Collection Type:: Clean-Voided Midstream Performed By: #### U A #### [facility] [address] [place] [address] [place] Leukocyte esterase Test strip Ql (U) Negative Normal Negative [facility] Comment on above: Order Comment: Name Collection Type:: Clean-Voided Midstream Performed By: #### U A #### [place] [address] [place] Nitrite,Urine Negative Normal Negative [facility] Comment on above: Order Comment: Name Collection Type:: Clean-Voided Midstream Performed By: #### U A #### [facility] [address] Occult Blood,Urine Negative Normal Negative [facility] Comment on above: Order Comment: Name Collection Type:: Clean-Voided Midstream Result Comment: PERF ORMED BY: [place] [address] GARCIA M.D. Performed By: #### U A #### [address] pH (U) 6.0 [pH] Normal 5.0-9.0 [facility] Comment on above: Order Comment: Name Collection Type:: Clean-Voided Midstream Performed By: #### U A #### [address] Protein,Urine Negative Normal Negative [facility] Comment on above: Order Comment: Name Collection Type:: Clean-Voided Midstream Performed By: #### U A #### [address] Specificy [place],Urine 1.012 Normal 1.001-1.030 [facility] Comment on above: Order Comment: Name Collection Type:: Clean-Voided Midstream Performed By: #### U A #### [address] Urobilinogen,Urine Normal Normal Normal [facility] Comment on above: Order Comment: Name Collection Type:: Clean-Voided Midstream Performed By: #### U A #### [address] Urine clarity by refractomet ry automatedOrdered By: Melva Owusu on 06-27-2022 Clarity Refractometry automated (U) Clear Clear [facility] Urine glucose measurement by automated test strip (mass/volume)Ordered By: Melva Owusu on 06-27-2022 Glucose Auto test strip (U) [Mass/Vol] Normal mg/dL Normal [facility] Urine hemoglobin detection b y automated test stripOrdered By: Melva Owusu on 06-27-2022 Hemoglobin Auto test strip Ql (U) Negative Negative [facility] Urine lactic acid measuremen tOrdered By: Melva Owusu on 06-27-2022 Lactate (U) [Moles/Vol] 1.7 mmol/L 0.5-2.2 [facility] Urine leukocyte esterase det ection by automated test stripOrdered By: Melva Owusu on 06-27-2022 Leukocyte esterase Auto test strip Ql (U) Negative Negative [facility] Urobilinogen Auto test strip (U) [Mass/Vol]Ordered By: Melva Owusu on 06-27-2022 Urobilinogen (U) [Mass/Vol] Normal mg/dL Normal [facility] XR chest 2V*on 06-27-2022 XR chest 2V* [facility] [place] [address] XRay Report Signed Patient: Man Patel MR#: [id number] : 1950 Acct:[id number] Age/Sex: 72 / M ADM Date: 06/27/22 Loc: ER Room: Type: [facility] ER Attending Dr: Copies to: GAIL [...] Cris Johnson M.D.06/27/2022 3:42 PM Dictation Location: [place] [address] Transcribed By: [facility] 06/27/22 1516 Dictated By: Cris Johnson MD 06/27/22 1540 Signed By: 06/27/22 1542 Normal [facility] pH Auto test strip (U)Ordere d By: Melva Owusu on 06-27-2022 pH (U) 6.0 [pH] 5.0-9.0 [facility] ECHOCARDIO M/2D COMPLETEon 1 ECHOCARDIO M/2D COMPLETE Normal [facility] BASIC METABOLIC PANELon 09-0 Calcium [Mass/Vol] 8.6 mg/dL Normal 8.6-10.[address] [facility] Comment on above: Order Comment: Yes: Add to Previous draw if able Performed By: #### 5 0103 #### [facility] [address] [place] [address], [facility] Chloride [Moles/Vol] 97 mmol/L Low 98-[address] [facility] Comment on above: Order Comment: Yes: Add to Previous draw if able Performed By: #### 5 0103 #### [facility] [address] [place] [address], [place] CO2 [Moles/Vol] 30 mmol/L Normal 21-[address] [facility] Comment on above: Order Comment: Yes: Add to Previous draw if able Performed By: #### 5 0103 #### [facility] [address] [place] [address], [place] Creatinine [Mass/Vol] 2.14 mg/dL High 0.70-1.[address] [facility] Comment on above: Order Comment: Yes: Add to Previous draw if able Performed By: #### 5 0103 #### [facility] [address] [place] [address], [place] EGFR 32 ml/min/1.73sq m Abnormal >[address] [facility] Comment on above: Order Comment: Yes: Add to Previous draw if able Result Comment: [facility]'s estimated glomerular filtration rate (eGFR) will no [...] individuals. Performed By: #### 5 0103 #### [facility] [address] [place] [address], [facility] Glucose [Mass/Vol] 90 mg/dL Normal 70-[address] [facility] Comment on above: Order Comment: Yes: Add to Previous draw if able Performed By: #### 5 0103 #### [facility] [address] [place] [address], [facility] Potassium [Moles/Vol] 3.7 mmol/L Normal 3.5-5.[address] [facility] Comment on above: Order Comment: Yes: Add to Previous draw if able Performed By: #### 5 0103 #### [facility] [address] [facility] [place] [address], [facility] Sodium [Moles/Vol] 135 mmol/L Low 136-[address] [facility] Comment on above: Order Comment: Yes: Add to Previous draw if able Performed By: #### 5 0103 #### [facility] [address] [facility] [place] [address], [facility] Urea nitrogen [Mass/Vol] 32 mg/dL High 7-[address] [facility] Comment on above: Order Comment: Yes: Add to Previous draw if able Performed By: #### 5 0103 #### [facility] [address] [place] [address], [facility] *SARS-CoV-2 COVID-19on 05-07 SARS-CoV-2 (COVID-19) RNA ELIZABETH+probe Ql (Unsp spec) Detected Critically abnormal Not Detected [facility] Comment on above: Order Comment: The A ptima SARS-CoV-2 assay is a nucleic acid amplification testintended for the qualitative detection of RNA from SARS-CoV-2 isolatedand purified from nasopharyngeal (IT APPLICATIONS DEVELOPER), oropharyngeal (OP), nasal swab,sputum, and bronchoalveolar lavage (BAL) specimens from patients withsigns and symptoms of infection who are suspected of COVID-19.Results are for the identification of SARS-CoV-2 RNA. The SARS-CoV-2 RNAis generally detectable during the acute phase of infection.The Aptima SARS-CoV-2 Assay on the [place] [employer] [place] [employer] system isintended for use by laboratory personnel specifically instructed andtrained in the operation of the [place] [employer] [place] [employer] system. TheAptima SARS-CoV-2 assay is only [...] other viruses. Performed By: #### 3 1792 ####[facility] [facility].[address] BASIC METABOLIC PANELon 08-3 0-2021 Calcium [Mass/Vol] 8.4 mg/dL Low 8.6-10.[address] [facility] Comment on above: Order Comment: No: D o not add to previous draw Performed By: #### 0 0071, 19659, 18693 ####[facility] [place] [address], [facility] Chloride [Moles/Vol] 97 mmol/L Low 98-[address] [facility] Comment on above: Order Comment: No: D o not add to previous draw Performed By: #### 0 0071, 51128, 15686 ####[facility] [place] [address], [facility] CO2 [Moles/Vol] 30 mmol/L Normal 21-[address] [facility] Comment on above: Order Comment: No: D o not add to previous draw Performed By: #### 0 0071, 98364, 14460 ####[facility] [facility] [place] [place] [address], [facility] Creatinine [Mass/Vol] 2.06 mg/dL High 0.70-1.[address] [facility] Comment on above: Order Comment: No: D o not add to previous draw Performed By: #### 0 0071, 43126, 54328 ####[facility] [place] [address], [facility] EGFR 34 ml/min/1.73sq m Abnormal >[address] [facility] Comment on above: Order Comment: No: D o not add to previous draw Result Comment: [facility]'s estimated glomerular filtration rate (eGFR) will no [...] of individuals. Performed By: #### 0 0071, 34929, 22280 ####[facility] [place] [address], [facility] Glucose [Mass/Vol] 86 mg/dL Normal 70-[address] [facility] Comment on above: Order Comment: No: D o not add to previous draw Performed By: #### 0 0071, 19017, 10628 ####[facility] [place] [address], [facility] Potassium [Moles/Vol] 3.7 mmol/L Normal 3.5-5.[address] [facility] Comment on above: Order Comment: No: D o not add to previous draw Performed By: #### 0 0071, 39150, 06685 ####[facility] Sodium [Moles/Vol] 135 mmol/L Low 136-[address] [facility] Comment on above: Order Comment: No: D o not add to previous draw Performed By: #### 0 0071, 33332, 86382 ####[facility] [facility] Urea nitrogen [Mass/Vol] 35 mg/dL High 7-[address] [facility] Comment on above: Order Comment: No: D o not add to previous draw Performed By: #### 0 0071, 40027, 72375 ####[facility] CBC COMPLETE BLOOD COUNTon 0 05-07-2022 Erythrocyte distribution width (RBC) [Ratio] 21.2 % High 11.5-15.[address] [facility] Comment on above: Order Comment: No: D o not add to previous draw Performed By: #### 5 0608 #### [facility] [address] [place] [address], [facility] Hematocrit (Bld) [Volume fraction] 36.1 % Low 39.0-50.[address] [facility] Comment on above: Order Comment: No: D o not add to previous draw Performed By: #### 5 0608 #### [facility] [address] [place] [address], [facility] Hemoglobin (Bld) [Mass/Vol] 10.4 g/dL Low 13.0-17.[address] [facility] Comment on above: Order Comment: No: D o not add to previous draw Performed By: #### 5 0608 #### [facility] [address] [place] [address], [facility] MCH (RBC) [Entitic mass] 23.6 pg Low 27.0-33.[address] [facility] Comment on above: Order Comment: No: D o not add to previous draw Performed By: #### 5 0608 #### [facility] [address] [place] [address], [facility] MCHC (RBC) [Mass/Vol] 28.8 g/dL Low 32.0-35.[address] [facility] Comment on above: Order Comment: No: D o not add to previous draw Performed By: #### 5 0608 #### [facility] [address] [place] [address], [facility] MCV (RBC) [Entitic vol] 81.9 fL Low 82.0-98.[address] [facility] Comment on above: Order Comment: No: D o not add to previous draw Performed By: #### 5 0608 #### [facility] [address] [facility] [place] [address], [facility] Nucleated RBC/100 WBC (Bld) [Ratio] 0 % Normal 0-[address] [facility] Comment on above: Order Comment: No: D o not add to previous draw Performed By: #### 5 0608 #### [facility] [address] [facility] [place] [place] [address], [facility] PLAT CNT 207 10*3/uL Normal 150-[address] [facility] Comment on above: Order Comment: No: D o not add to previous draw Performed By: #### 5 0608 #### [facility] [address] [facility] [place] [address], [facility] RBC (Bld) [#/Vol] 4.41 10*6/uL Normal 4.20-5.[address] [facility] Comment on above: Order Comment: No: D o not add to previous draw Performed By: #### 5 0608 #### [facility] [address] [place] [address], [facility] WBC (Bld) [#/Vol] 4.60 10*3/uL Normal 4.00-10.[address] [facility] Comment on above: Order Comment: No: D o not add to previous draw Performed By: #### 5 0608 #### [facility] [address] [place] [address], [facility] MAGNESIUM BLOODon 05-07-2022 Magnesium [Mass/Vol] 2.3 mg/dL Normal 1.9-2.[address] [facility] Comment on above: Order Comment: No: D o not add to previous draw Performed By: #### 0 0071, 72653, 73682 ####[facility] [place] [address], [facility] PHOSPHORUS BLOODon 2 Phosphate [Mass/Vol] 2.6 mg/dL Normal 2.5-5.[address] [facility] Comment on above: Order Comment: No: D o not add to previous draw Performed By: #### 0 0071, 11391, 92463 ####[facility] POC SARS COV2 ANTIGEN POSITI VEon 05-07-2022 POC SARS COV2 ANTIGEN POS Positive Critically abnormal NEGATIVE [facility] Comment on above: Result Comment: Posi tive results indicate the presence of viral antigens, but clinical correlation with patient history and other diagnostic information is necessary to determine infection status. Positive results do not rule out bacterial infection or co-infection with other viruses. The agent detected may not be the definite cause of disease. Laboratories within the [facility] and its territories are required to report all results to the appropriate public health authorities. The Clarity COVID-19 Antigen Rapid Test Cassette is a rapid chromatographic immunoassay intended for the qualitative detection of the nucleocapsid protein antigen from SARS-CoV-2 in direct nasopharyngeal swab (IT APPLICATIONS DEVELOPER) specimens from individuals who are suspected of [...] Accreditation. Performed By: #### 3 2045 #### [facility] [address] [place] [address], [facility] BASIC METABOLIC PANELon 08-2 Calcium [Mass/Vol] 8.3 mg/dL Low 8.6-10.[address] [facility] Comment on above: Order Comment: No: D o not add to previous draw Performed By: #### 7 0207 #### [facility] [address] [place] [address], [place] Chloride [Moles/Vol] 99 mmol/L Normal 98-[address] [facility] Comment on above: Order Comment: No: D o not add to previous draw Performed By: #### 7 0207 #### [facility] [address] [place] [address], [facility] CO2 [Moles/Vol] 30 mmol/L Normal 21-[address] [facility] Comment on above: Order Comment: No: D o not add to previous draw Performed By: #### 7 0207 #### [facility] [address] [place] [address], [facility] Creatinine [Mass/Vol] 2.08 mg/dL High 0.70-1.[address] [facility] Comment on above: Order Comment: No: D o not add to previous draw Performed By: #### 7 0207 #### [facility] [address] [place] [address], [facility] EGFR 34 ml/min/1.73sq m Abnormal >[address] [facility] Comment on above: Order Comment: No: D o not add to previous draw Result Comment: [facility]'s estimated glomerular filtration rate (eGFR) will no [...] individuals. Performed By: #### 7 0207 #### [facility] [address] [place] [address], [facility] Glucose [Mass/Vol] 91 mg/dL Normal 70-[address] [facility] Comment on above: Order Comment: No: D o not add to previous draw Performed By: #### 7 0207 #### [facility] [address] [place] [address], [facility] Potassium [Moles/Vol] 3.5 mmol/L Normal 3.5-5.[address] [facility] Comment on above: Order Comment: No: D o not add to previous draw Performed By: #### 7 0207 #### [facility] [address] [place] [address], [facility] Sodium [Moles/Vol] 137 mmol/L Normal 136-[address] [facility] Comment on above: Order Comment: No: D o not add to previous draw Performed By: #### 7 0207 #### [facility] [address] [place] [address], [facility] Urea nitrogen [Mass/Vol] 36 mg/dL High 7-[address] [facility] Comment on above: Order Comment: No: D o not add to previous draw Performed By: #### 7 0207 #### [facility] [address] [place] [address], [facility] TSH3 WITH REFLEX FT4on 05-06 TSH 3RD GENERATION 2.46 uIU/mL Normal 0.34-5.[address] [facility] Comment on above: Performed By: #### 7 0207 #### [facility] [address] [place] [address], [facility] BASIC METABOLIC PANELon 04-09 Calcium [Mass/Vol] 7.9 mg/dL Low 8.6-10.[address] [facility] Comment on above: Order Comment: Check Pacemaker/AICD Lead Position, Chest X-ray PA \EANDE\ LAT in Dept ;DO NOT lift affected arm above shoulder. S/P pacemaker/ICD implant. Verify lead placement Performed By: #### 0 0071 ####[facility] [place] [address], [facility] Chloride [Moles/Vol] 99 mmol/L Normal 98-[address] [facility] Comment on above: Order Comment: Check Pacemaker/AICD Lead Position, Chest X-ray PA \EANDE\ LAT in Dept ;DO NOT lift affected arm above shoulder. S/P pacemaker/ICD implant. Verify lead placement Performed By: #### 0 0071 ####[facility] [facility].[address] CO2 [Moles/Vol] 28 mmol/L Normal 21-[address] [facility] Comment on above: Order Comment: Check Pacemaker/AICD Lead Position, Chest X-ray PA \EANDE\ LAT in Dept ;DO NOT lift affected arm above shoulder. S/P pacemaker/ICD implant. Verify lead placement Performed By: #### 0 0071 ####[facility] [facility].[address] Creatinine [Mass/Vol] 2.11 mg/dL High 0.70-1.[address] [facility] Comment on above: Order Comment: Check Pacemaker/AICD Lead Position, Chest X-ray PA \EANDE\ LAT in Dept ;DO NOT lift affected arm above shoulder. S/P pacemaker/ICD implant. Verify lead placement Performed By: #### 0 0071 ####[facility] [facility].[address] EGFR 33 ml/min/1.73sq m Abnormal >[address] [facility] Comment on above: Order Comment: Check Pacemaker/AICD Lead Position, Chest X-ray PA \EANDE\ LAT in Dept ;DO NOT lift affected arm above shoulder. S/P pacemaker/ICD implant. Verify lead placement Result Comment: [facility]'s estimated glomerular filtration rate (eGFR) will no [...] of individuals. Performed By: #### 0 0071 ####[facility] Glucose [Mass/Vol] 95 mg/dL Normal 70-[address] [facility] Comment on above: Order Comment: Check Pacemaker/AICD Lead Position, Chest X-ray PA \EANDE\ LAT in Dept ;DO NOT lift affected arm above shoulder. S/P pacemaker/ICD implant. Verify lead placement Performed By: #### 0 0071 ####[facility] [place] [address], [facility] Potassium [Moles/Vol] 3.5 mmol/L Normal 3.5-5.[address] [facility] Comment on above: Order Comment: Check Pacemaker/AICD Lead Position, Chest X-ray PA \EANDE\ LAT in Dept ;DO NOT lift affected arm above shoulder. S/P pacemaker/ICD implant. Verify lead placement Performed By: #### 0 0071 ####[facility] [place] [address], [facility] Sodium [Moles/Vol] 137 mmol/L Normal 136-[address] [facility] Comment on above: Order Comment: Check Pacemaker/AICD Lead Position, Chest X-ray PA \EANDE\ LAT in Dept ;DO NOT lift affected arm above shoulder. S/P pacemaker/ICD implant. Verify lead placement Performed By: #### 0 0071 ####[place] [address] [place] [address], [facility] Urea nitrogen [Mass/Vol] 37 mg/dL High 7-[address] [facility] Comment on above: Order Comment: Check Pacemaker/AICD Lead Position, Chest X-ray PA \EANDE\ LAT in Dept ;DO NOT lift affected arm above shoulder. S/P pacemaker/ICD implant. Verify lead placement Performed By: #### 0 0071 ####[address] CBC COMPLETE BLOOD COUNTon 0 05-05-2022 Erythrocyte distribution width (RBC) [Ratio] 21.2 % High 11.5-15.[address] [facility] Comment on above: Order Comment: Unkno wn Performed By: #### 5 0608 ####[place] [address] [address] Hematocrit (Bld) [Volume fraction] 35.5 % Low 39.0-50.[address] [facility] Comment on above: Order Comment: Unkno wn Performed By: #### 5 0608 ####[address] Hemoglobin (Bld) [Mass/Vol] 10.5 g/dL Low 13.0-17.[address] [facility] Comment on above: Order Comment: Unkno wn Performed By: #### 5 0608 ####[address] MCH (RBC) [Entitic mass] 23.8 pg Low 27.0-33.[address] [facility] Comment on above: Order Comment: Unkno wn Performed By: #### 5 0608 ####[address] MCHC (RBC) [Mass/Vol] 29.6 g/dL Low 32.0-35.[address] [facility] Comment on above: Order Comment: Unkno wn Performed By: #### 5 0608 ####[address] MCV (RBC) [Entitic vol] 80.5 fL Low 82.0-98.[address] [facility] Comment on above: Order Comment: Unkno wn Performed By: #### 5 0608 ####[facility] [facility].[address] Nucleated RBC/100 WBC (Bld) [Ratio] 0 % Normal 0-[address] [facility] Comment on above: Order Comment: Unkno wn Performed By: #### 5 0608 ####[facility] [place] [address], [facility] PLAT CNT 161 10*3/uL Normal 150-[address] [facility] Comment on above: Order Comment: Unkno wn Performed By: #### 5 0608 ####[facility] RBC (Bld) [#/Vol] 4.41 10*6/uL Normal 4.20-5.[address] [facility] Comment on above: Order Comment: Unkno wn Performed By: #### 5 0608 ####[facility] WBC (Bld) [#/Vol] 4.71 10*3/uL Normal 4.00-10.[address] [facility] Comment on above: Order Comment: Unkno wn Performed By: #### 5 0608 ####[facility] BASIC METABOLIC PANELon 08-2 Calcium [Mass/Vol] 8.1 mg/dL Low 8.6-10.[address] [facility] Comment on above: Order Comment: No: D o not add to previous draw Performed By: #### 3 2044 #### [facility] [address] [place] [address], [facility] Chloride [Moles/Vol] 97 mmol/L Low 98-[address] [facility] Comment on above: Order Comment: No: D o not add to previous draw Performed By: #### 3 2044 #### [facility] [address] [place] [address], [facility] CO2 [Moles/Vol] 31 mmol/L Normal 21-[address] [facility] Comment on above: Order Comment: No: D o not add to previous draw Performed By: #### 3 2044 #### [facility] [address] [place] [address], [facility] Creatinine [Mass/Vol] 1.98 mg/dL High 0.70-1.[address] [facility] Comment on above: Order Comment: No: D o not add to previous draw Performed By: #### 3 2044 #### [facility] [address] [place] [address], [facility] EGFR 36 ml/min/1.73sq m Abnormal >[address] [facility] Comment on above: Order Comment: No: D o not add to previous draw Result Comment: [facility]'s estimated glomerular filtration rate (eGFR) will no [...] individuals. Performed By: #### 3 2044 #### [facility] [address] [place] [address], [facility] Glucose [Mass/Vol] 88 mg/dL Normal 70-[address] [facility] Comment on above: Order Comment: No: D o not add to previous draw Performed By: #### 3 2044 #### [facility] [address] [place] [address], [facility] Potassium [Moles/Vol] 3.5 mmol/L Normal 3.5-5.[address] [facility] Comment on above: Order Comment: No: D o not add to previous draw Performed By: #### 3 2044 #### [facility] [address] [place] [address], [facility] Sodium [Moles/Vol] 137 mmol/L Normal 136-[address] [facility] Comment on above: Order Comment: No: D o not add to previous draw Performed By: #### 3 2044 #### [facility] [address] [place] [address], [facility] Urea nitrogen [Mass/Vol] 35 mg/dL High 7-[address] [facility] Comment on above: Order Comment: No: D o not add to previous draw Performed By: #### 3 2044 #### [facility] [address] [facility] [place] [address], [facility] CBC COMPLETE BLOOD COUNTon 05-04-2022 Erythrocyte distribution width (RBC) [Ratio] 21.2 % High 11.5-15.[address] [facility] Comment on above: Order Comment: No: D o not add to previous draw Performed By: #### 5 08 ####[facility] [facility].[address] Hematocrit (Bld) [Volume fraction] 34.6 % Low 39.0-50.[address] [facility] Comment on above: Order Comment: No: D o not add to previous draw Performed By: #### 5 08 ####[facility] [place] [address], [facility] Hemoglobin (Bld) [Mass/Vol] 10.2 g/dL Low 13.0-17.[address] [facility] Comment on above: Order Comment: No: D o not add to previous draw Performed By: #### 5 0608 ####[facility] [place] [address], [facility] MCH (RBC) [Entitic mass] 23.8 pg Low 27.0-33.[address] [facility] Comment on above: Order Comment: No: D o not add to previous draw Performed By: #### 5 0608 ####[facility] MCHC (RBC) [Mass/Vol] 29.5 g/dL Low 32.0-35.[address] [facility] Comment on above: Order Comment: No: D o not add to previous draw Performed By: #### 5 0608 ####[facility] [place] [address], [facility] MCV (RBC) [Entitic vol] 80.8 fL Low 82.0-98.[address] [facility] Comment on above: Order Comment: No: D o not add to previous draw Performed By: #### 5 0608 ####[facility] [facility].[address] Nucleated RBC/100 WBC (Bld) [Ratio] 0 % Normal 0-[address] [facility] Comment on above: Order Comment: No: D o not add to previous draw Performed By: #### 5 0608 ####[facility] [place] [address], [facility] PLAT CNT 131 10*3/uL Low 150-[address] [facility] Comment on above: Order Comment: No: D o not add to previous draw Performed By: #### 5 0608 ####[facility] [place] [address].[place] [address], [facility] RBC (Bld) [#/Vol] 4.28 10*6/uL Normal 4.20-5.[address] [facility] Comment on above: Order Comment: No: D o not add to previous draw Performed By: #### 5 0608 ####[facility] [place] [address], [facility] WBC (Bld) [#/Vol] 4.58 10*3/uL Normal 4.00-10.[address] [facility] Comment on above: Order Comment: No: D o not add to previous draw Performed By: #### 5 0608 ####[facility] [place] [address], [facility] Cardiovascular Lab Reporton 05-04-2022 Cardiovascular Lab Report [facility] Patient Name: [facility] Donovan Ace MR #: [id number] Department of Physician: Fidel Scott M.D. Division of Service Date: 05/03/2022 Cardiology Birthdate: 1950 Adult Cardiovascular Room #: 5AB [id number] [facility] [address] [address] Cardiovascular Laboratory Report FINAL IMPRESSIONS: 1. Moderately [...] over the hub of the previously placed [place] sheath. A Evangelista catheter was advanced through [place] sheath; pressures were measured in the right atrium, right ventricle, pulmonary artery, and pulmonary capillary wedge positions. Oxygen saturations were obtained and cardiac output/cardiac index was calculated using the modified Eliud principle. The Evangelista catheter was removed. The [place] sheath was to be removed with application [...] Iniguez M.D. Date Trans: 05/04/2022 05:38 A/surekha [id number] cc: Li Cintron M.D. Heart Failure/ Transplant Mailstop [address] [facility] [address] [facility] BASIC METABOLIC PANELon 04-09 Calcium [Mass/Vol] 7.8 mg/dL Low 8.6-10.[address] [facility] Comment on above: Order Comment: Check Pacemaker/AICD Lead Position, Chest X-ray PA \EANDE\ LAT in Dept ;DO NOT lift affected arm above shoulder. S/P pacemaker/ICD implant. Verify lead placement Performed By: #### 4 999, 12918, 91492 ####[facility] [place] [address], [facility] Chloride [Moles/Vol] 98 mmol/L Normal 98-[address] [facility] Comment on above: Order Comment: Check Pacemaker/AICD Lead Position, Chest X-ray PA \EANDE\ LAT in Dept ;DO NOT lift affected arm above shoulder. S/P pacemaker/ICD implant. Verify lead placement Performed By: #### 4 999, 55858, 34627 ####[facility] [place] [address], [facility] CO2 [Moles/Vol] 31 mmol/L Normal 21-[address] [facility] Comment on above: Order Comment: Check Pacemaker/AICD Lead Position, Chest X-ray PA \EANDE\ LAT in Dept ;DO NOT lift affected arm above shoulder. S/P pacemaker/ICD implant. Verify lead placement Performed By: #### 4 1000, 07765, 05290 ####[facility] Creatinine [Mass/Vol] 2.19 mg/dL High 0.70-1.[address] [facility] Comment on above: Order Comment: Check Pacemaker/AICD Lead Position, Chest X-ray PA \EANDE\ LAT in Dept ;DO NOT lift affected arm above shoulder. S/P pacemaker/ICD implant. Verify lead placement Performed By: #### 4 999, 58933, 47018 ####[facility] [facility].[address] EGFR 32 ml/min/1.73sq m Abnormal >[address] [facility] Comment on above: Order Comment: Check Pacemaker/AICD Lead Position, Chest X-ray PA \EANDE\ LAT in Dept ;DO NOT lift affected arm above shoulder. S/P pacemaker/ICD implant. Verify lead placement Result Comment: [facility]'s estimated glomerular filtration rate (eGFR) will no [...] of individuals. Performed By: #### 4 999, 99664, 37837 ####[facility] [place] [address], [facility] Glucose [Mass/Vol] 95 mg/dL Normal 70-[address] [facility] Comment on above: Order Comment: Check Pacemaker/AICD Lead Position, Chest X-ray PA \EANDE\ LAT in Dept ;DO NOT lift affected arm above shoulder. S/P pacemaker/ICD implant. Verify lead placement Performed By: #### 4 1000, 54683, 76642 ####[facility] [place] [address], [facility] Potassium [Moles/Vol] 3.3 mmol/L Low 3.5-5.[address] [facility] Comment on above: Order Comment: Check Pacemaker/AICD Lead Position, Chest X-ray PA \EANDE\ LAT in Dept ;DO NOT lift affected arm above shoulder. S/P pacemaker/ICD implant. Verify lead placement Performed By: #### 4 1000, 04494, 18420 ####[facility] Sodium [Moles/Vol] 137 mmol/L Normal 136-[address] [facility] Comment on above: Order Comment: Check Pacemaker/AICD Lead Position, Chest X-ray PA \EANDE\ LAT in Dept ;DO NOT lift affected arm above shoulder. S/P pacemaker/ICD implant. Verify lead placement Performed By: #### 4 1000, 38642, 05461 ####[facility] [facility].[address] Urea nitrogen [Mass/Vol] 39 mg/dL High 7-[address] [facility] Comment on above: Order Comment: Check Pacemaker/AICD Lead Position, Chest X-ray PA \EANDE\ LAT in Dept ;DO NOT lift affected arm above shoulder. S/P pacemaker/ICD implant. Verify lead placement Performed By: #### 4 999, 87818, 58442 ####[facility] [facility].[address] CBC W/DIFFon 05-03-2022 ABS IMM GRANS 0.0 10*3/uL Normal 0.0-0.[address] [facility] Comment on above: Order Comment: No: D o not add to previous draw Performed By: #### 5 0608 #### [facility] [address] ABS NEUTROPHILS 3.8 10*3/uL Normal 1.6-7.[address] [facility] Comment on above: Order Comment: No: D o not add to previous draw Performed By: #### 5 0608 #### [facility] [address] [place] [address], [facility] Basophils (Bld) [#/Vol] 0.0 10*3/uL Normal 0.0-0.[address] [facility] Comment on above: Order Comment: No: D o not add to previous draw Performed By: #### 5 0608 #### [facility] [address] [place] [address], [facility] Basophils/100 WBC (Bld) 0.4 % Normal 0.0-1.[address] [facility] Comment on above: Order Comment: No: D o not add to previous draw Performed By: #### 5 0608 #### [facility] [address] [place] [address], [facility] Eosinophils (Bld) [#/Vol] 0.3 10*3/uL Normal 0.0-0.[address] [facility] Comment on above: Order Comment: No: D o not add to previous draw Performed By: #### 5 0608 #### [facility] [address] [place] [address], [facility] Eosinophils/100 WBC (Bld) 5.9 % Normal 0.0-6.[address] [facility] Comment on above: Order Comment: No: D o not add to previous draw Performed By: #### 5 0608 #### [facility] [address] [place] [address], [facility] Erythrocyte distribution width (RBC) [Ratio] 20.8 % High 11.5-15.[address] [facility] Comment on above: Order Comment: No: D o not add to previous draw Performed By: #### 5 0608 #### [facility] [address] [place] [address], [facility] Hematocrit (Bld) [Volume fraction] 31.0 % Low 39.0-50.[address] [facility] Comment on above: Order Comment: No: D o not add to previous draw Performed By: #### 5 0608 #### [facility] [address] [place] [address], [facility] Hemoglobin (Bld) [Mass/Vol] 9.2 g/dL Low 13.0-17.[address] [facility] Comment on above: Order Comment: No: D o not add to previous draw Performed By: #### 5 0608 #### [facility] [address] [place] [address], [facility] IMMATURE GRANS 0.6 % Normal 0.0-1.[address] [facility] Comment on above: Order Comment: No: D o not add to previous draw Performed By: #### 5 0608 #### [facility] [address] [facility] [place] [address], [facility] Lymphocytes (Bld) [#/Vol] 0.6 10*3/uL Low 1.2-4.[address] [facility] Comment on above: Order Comment: No: D o not add to previous draw Performed By: #### 5 0608 #### [facility] [address] [facility] [place] [address], [facility] Lymphocytes/100 WBC (Bld) 11.3 % Low 20.0-45.[address] [facility] Comment on above: Order Comment: No: D o not add to previous draw Performed By: #### 5 0608 #### [facility] [address] [facility] [place] [address], [facility] MCH (RBC) [Entitic mass] 24.0 pg Low 27.0-33.[address] [facility] Comment on above: Order Comment: No: D o not add to previous draw Performed By: #### 5 0608 #### [facility] [address] [place] [address], [facility] MCHC (RBC) [Mass/Vol] 29.7 g/dL Low 32.0-35.[address] [facility] Comment on above: Order Comment: No: D o not add to previous draw Performed By: #### 5 0608 #### [facility] [address] [place] [address], [facility] MCV (RBC) [Entitic vol] 80.9 fL Low 82.0-98.[address] [facility] Comment on above: Order Comment: No: D o not add to previous draw Performed By: #### 5 0608 #### [facility] [address] [place] [address], [facility] Monocytes (Bld) [#/Vol] 0.4 10*3/uL Normal 0.1-1.[address] [facility] Comment on above: Order Comment: No: D o not add to previous draw Performed By: #### 5 0608 #### [facility] [address] [facility] [place] [address], [facility] MONOS 8.2 % Normal 5.0-12.[address] [facility] Comment on above: Order Comment: No: D o not add to previous draw Performed By: #### 5 0608 #### [facility] [address] [place] [address], [facility] Neutrophils/100 WBC (Bld) 73.6 % High 40.0-72.[address] [facility] Comment on above: Order Comment: No: D o not add to previous draw Performed By: #### 5 0608 #### [facility] [address] [place] [address], [facility] Nucleated RBC/100 WBC (Bld) [Ratio] 0 % Normal 0-[address] [facility] Comment on above: Order Comment: No: D o not add to previous draw Performed By: #### 5 0608 #### [facility] [address] [place] [address], [facility] PLAT CNT 131 10*3/uL Low 150-[address] [facility] Comment on above: Order Comment: No: D o not add to previous draw Performed By: #### 5 0608 #### [facility] [address] [place] [address], [facility] RBC (Bld) [#/Vol] 3.83 10*6/uL Low 4.20-5.[address] [facility] Comment on above: Order Comment: No: D o not add to previous draw Performed By: #### 5 0608 #### [facility] [address] [place] [address], [facility] WBC (Bld) [#/Vol] 5.22 10*3/uL Normal 4.00-10.[address] [facility] Comment on above: Order Comment: No: D o not add to previous draw Performed By: #### 5 0608 #### [facility] [address] [place] [address], [facility] MAGNESIUM BLOODon 05-03-2022 Magnesium [Mass/Vol] 2.0 mg/dL Normal 1.9-2.[address] [facility] Comment on above: Order Comment: Check Pacemaker/AICD Lead Position, Chest X-ray PA \EANDE\ LAT in Dept ;DO NOT lift affected arm above shoulder. S/P pacemaker/ICD implant. Verify lead placement Performed By: #### 4 1000, 94257, 08955 ####[facility] [facility] [place] [place] [address], [facility] PHOSPHORUS BLOODon Phosphate [Mass/Vol] 2.2 mg/dL Low 2.5-5.[address] [facility] Comment on above: Order Comment: Check Pacemaker/AICD Lead Position, Chest X-ray PA \EANDE\ LAT in Dept ;DO NOT lift affected arm above shoulder. S/P pacemaker/ICD implant. Verify lead placement Performed By: #### 4 1000, 90364, 47523 ####[facility] [place] [address], [facility] BASIC METABOLIC PANELon 04-09 Calcium [Mass/Vol] 7.8 mg/dL Low 8.6-10.[address] [facility] Comment on above: Order Comment: No: D o not add to previous draw Performed By: #### 5 0103 #### [facility] [address] [place] [address], [facility] Chloride [Moles/Vol] 98 mmol/L Normal 98-[address] [facility] Comment on above: Order Comment: No: D o not add to previous draw Performed By: #### 5 0103 #### [facility] [address] [place] [address], [place] CO2 [Moles/Vol] 29 mmol/L Normal 21-[address] [facility] Comment on above: Order Comment: No: D o not add to previous draw Performed By: #### 5 0103 #### [facility] [address] [place] [address], [facility] Creatinine [Mass/Vol] 2.26 mg/dL High 0.70-1.[address] [facility] Comment on above: Order Comment: No: D o not add to previous draw Performed By: #### 5 0103 #### [facility] [address] [place] [address], [facility] EGFR 30 ml/min/1.73sq m Abnormal >[address] [facility] Comment on above: Order Comment: No: D o not add to previous draw Result Comment: [facility]'s estimated glomerular filtration rate (eGFR) will no [...] individuals. Performed By: #### 5 0103 #### [facility] [address] [place] [address], [place] Glucose [Mass/Vol] 91 mg/dL Normal 70-[address] [facility] Comment on above: Order Comment: No: D o not add to previous draw Performed By: #### 5 0103 #### [facility] [address] [place] [address], [facility] Potassium [Moles/Vol] 3.5 mmol/L Normal 3.5-5.[address] [facility] Comment on above: Order Comment: No: D o not add to previous draw Performed By: #### 5 0103 #### [facility] [address] [place] [address], [facility] Sodium [Moles/Vol] 135 mmol/L Low 136-[address] [facility] Comment on above: Order Comment: No: D o not add to previous draw Performed By: #### 5 0103 #### [facility] [address] [place] [address], [facility] Urea nitrogen [Mass/Vol] 46 mg/dL High 7-[address] [facility] Comment on above: Order Comment: No: D o not add to previous draw Performed By: #### 5 0103 #### [facility] [address] [place] [address], [facility] CBC COMPLETE BLOOD COUNTon 0 05-02-2022 Erythrocyte distribution width (RBC) [Ratio] 20.4 % High 11.5-15.[address] [facility] Comment on above: Order Comment: No: D o not add to previous draw Performed By: #### 5 0608 #### [facility] [address] [place] [address], [facility] Hematocrit (Bld) [Volume fraction] 29.9 % Low 39.0-50.[address] [facility] Comment on above: Order Comment: No: D o not add to previous draw Performed By: #### 5 0608 #### [facility] [address] [place] [address], [facility] Hemoglobin (Bld) [Mass/Vol] 8.9 g/dL Low 13.0-17.[address] [facility] Comment on above: Order Comment: No: D o not add to previous draw Performed By: #### 5 0608 #### [facility] [address] [place] [address], [facility] MCH (RBC) [Entitic mass] 24.1 pg Low 27.0-33.[address] [facility] Comment on above: Order Comment: No: D o not add to previous draw Performed By: #### 5 0608 #### [facility] [address] [place] [address], [facility] MCHC (RBC) [Mass/Vol] 29.8 g/dL Low 32.0-35.[address] [facility] Comment on above: Order Comment: No: D o not add to previous draw Performed By: #### 5 0608 #### [facility] [address] [place] [address], [facility] MCV (RBC) [Entitic vol] 80.8 fL Low 82.0-98.[address] [facility] Comment on above: Order Comment: No: D o not add to previous draw Performed By: #### 5 0608 #### [facility] [address] [place] [address], [facility] Nucleated RBC/100 WBC (Bld) [Ratio] 0 % Normal 0-[address] [facility] Comment on above: Order Comment: No: D o not add to previous draw Performed By: #### 5 0608 #### [facility] [address] [place] [address], [facility] PLAT CNT 130 10*3/uL Low 150-[address] [facility] Comment on above: Order Comment: No: D o not add to previous draw Performed By: #### 5 0608 #### [facility] [address] [place] [address], [facility] RBC (Bld) [#/Vol] 3.70 10*6/uL Low 4.20-5.[address] [facility] Comment on above: Order Comment: No: D o not add to previous draw Performed By: #### 5 0608 #### [facility] [address] [place] [address], [facility] WBC (Bld) [#/Vol] 4.68 10*3/uL Normal 4.00-10.[address] [facility] Comment on above: Order Comment: No: D o not add to previous draw Performed By: #### 5 0608 #### [facility] [address] [place] [address], [facility] MAGNESIUM BLOODon 05-02-2022 Magnesium [Mass/Vol] 2.0 mg/dL Normal 1.9-2.[address] [facility] Comment on above: Order Comment: No: D o not add to previous draw Performed By: #### 5 0103 #### [facility] [address] [place] [address], [facility] PHOSPHORUS BLOODon Phosphate [Mass/Vol] 2.5 mg/dL Normal 2.5-5.[address] [facility] Comment on above: Order Comment: No: D o not add to previous draw Performed By: #### 5 0103 #### [facility] [address] [place] [address], [facility] BASIC METABOLIC PANELon 04-09 Calcium [Mass/Vol] 8.0 mg/dL Low 8.6-10.[address] [facility] Comment on above: Order Comment: Check Pacemaker/AICD Lead Position, Chest X-ray PA \EANDE\ LAT in Dept ;DO NOT lift affected arm above shoulder. S/P pacemaker/ICD implant. Verify lead placement Performed By: #### 4 999, 17726, 28648 ####[facility] [facility] [place] [address], [facility] Chloride [Moles/Vol] 99 mmol/L Normal 98-[address] [facility] Comment on above: Order Comment: Check Pacemaker/AICD Lead Position, Chest X-ray PA \EANDE\ LAT in Dept ;DO NOT lift affected arm above shoulder. S/P pacemaker/ICD implant. Verify lead placement Performed By: #### 4 1000, 36284, 68327 ####[facility] [place] [address], [facility] CO2 [Moles/Vol] 31 mmol/L Normal 21-[address] [facility] Comment on above: Order Comment: Check Pacemaker/AICD Lead Position, Chest X-ray PA \EANDE\ LAT in Dept ;DO NOT lift affected arm above shoulder. S/P pacemaker/ICD implant. Verify lead placement Performed By: #### 4 1000, 10534, 38735 ####[facility] [place] [address], [facility] Creatinine [Mass/Vol] 2.48 mg/dL High 0.70-1.[address] [facility] Comment on above: Order Comment: Check Pacemaker/AICD Lead Position, Chest X-ray PA \EANDE\ LAT in Dept ;DO NOT lift affected arm above shoulder. S/P pacemaker/ICD implant. Verify lead placement Performed By: #### 4 1000, 19081, 45950 ####[facility] [facility] EGFR 27 ml/min/1.73sq m Abnormal >[address] [facility] Comment on above: Order Comment: Check Pacemaker/AICD Lead Position, Chest X-ray PA \EANDE\ LAT in Dept ;DO NOT lift affected arm above shoulder. S/P pacemaker/ICD implant. Verify lead placement Result Comment: [facility]'s estimated glomerular filtration rate (eGFR) will no [...] of individuals. Performed By: #### 4 1000, 18526, 39938 ####[facility] [place] [address], [facility] Glucose [Mass/Vol] 83 mg/dL Normal 70-[address] [facility] Comment on above: Order Comment: Check Pacemaker/AICD Lead Position, Chest X-ray PA \EANDE\ LAT in Dept ;DO NOT lift affected arm above shoulder. S/P pacemaker/ICD implant. Verify lead placement Performed By: #### 4 1000, 79329, 16135 ####[facility] Potassium [Moles/Vol] 3.5 mmol/L Normal 3.5-5.[address] [facility] Comment on above: Order Comment: Check Pacemaker/AICD Lead Position, Chest X-ray PA \EANDE\ LAT in Dept ;DO NOT lift affected arm above shoulder. S/P pacemaker/ICD implant. Verify lead placement Performed By: #### 4 999, 49776, 30954 ####[facility] Sodium [Moles/Vol] 137 mmol/L Normal 136-[address] [facility] Comment on above: Order Comment: Check Pacemaker/AICD Lead Position, Chest X-ray PA \EANDE\ LAT in Dept ;DO NOT lift affected arm above shoulder. S/P pacemaker/ICD implant. Verify lead placement Performed By: #### 4 999, 43133, 12860 ####[facility] Urea nitrogen [Mass/Vol] 49 mg/dL High 7-[address] [facility] Comment on above: Order Comment: Check Pacemaker/AICD Lead Position, Chest X-ray PA \EANDE\ LAT in Dept ;DO NOT lift affected arm above shoulder. S/P pacemaker/ICD implant. Verify lead placement Performed By: #### 4 1000, 84466, 29938 ####[facility] CBC COMPLETE BLOOD COUNTon 0 05-01-2022 Erythrocyte distribution width (RBC) [Ratio] 20.6 % High 11.5-15.[address] [facility] Comment on above: Order Comment: No: D o not add to previous draw Performed By: #### 5 0608 #### [facility] [address] [place] [address], [facility] Hematocrit (Bld) [Volume fraction] 28.9 % Low 39.0-50.[address] [facility] Comment on above: Order Comment: No: D o not add to previous draw Performed By: #### 5 0608 #### [facility] [address] [place] [address], [facility] Hemoglobin (Bld) [Mass/Vol] 8.6 g/dL Low 13.0-17.[address] [facility] Comment on above: Order Comment: No: D o not add to previous draw Performed By: #### 5 0608 #### [facility] [address] [facility] [place] [address], [facility] MCH (RBC) [Entitic mass] 24.1 pg Low 27.0-33.[address] [facility] Comment on above: Order Comment: No: D o not add to previous draw Performed By: #### 5 0608 #### [facility] [address] [facility] [place] [address], [facility] MCHC (RBC) [Mass/Vol] 29.8 g/dL Low 32.0-35.[address] [facility] Comment on above: Order Comment: No: D o not add to previous draw Performed By: #### 5 0608 #### [facility] [address] [facility] [place] [address], [facility] MCV (RBC) [Entitic vol] 81.0 fL Low 82.0-98.[address] [facility] Comment on above: Order Comment: No: D o not add to previous draw Performed By: #### 5 0608 #### [facility] [address] [place] [address], [facility] Nucleated RBC/100 WBC (Bld) [Ratio] 0 % Normal 0-[address] [facility] Comment on above: Order Comment: No: D o not add to previous draw Performed By: #### 5 0608 #### [facility] [address] [place] [address], [place] PLAT CNT 130 10*3/uL Low 150-[address] [facility] Comment on above: Order Comment: No: D o not add to previous draw Performed By: #### 5 0608 #### [facility] [address] [place] [address], [place] RBC (Bld) [#/Vol] 3.57 10*6/uL Low 4.20-5.[address] [facility] Comment on above: Order Comment: No: D o not add to previous draw Performed By: #### 5 0608 #### [facility] [address] [place] [address], [place] WBC (Bld) [#/Vol] 4.33 10*3/uL Normal 4.00-10.[address] [facility] Comment on above: Order Comment: No: D o not add to previous draw Performed By: #### 5 0608 #### [facility] [address] [place] [address], [place] COOXIMETRYon 05-01-2022 COHB 2 % Normal [facility] Comment on above: Performed By: #### 7 0207 #### [facility] [address] [place] [address], [place] METHB 1 % Normal [facility] Comment on above: Performed By: #### 7 7 #### [facility] [address] [place] [address], [place] Oxygen saturation in Blood 71.0 % Normal 65.0-75.[address] [facility] Comment on above: Performed By: #### 7 7 #### [facility] [address] [place] [address], [place] THB 9.0 g/dL Normal [facility] Comment on above: Performed By: #### 7 7 #### [facility] [address] [place] [address], [facility] MAGNESIUM BLOODon 05-01-2022 Magnesium [Mass/Vol] 2.1 mg/dL Normal 1.9-2.[address] [facility] Comment on above: Order Comment: Check Pacemaker/AICD Lead Position, Chest X-ray PA \EANDE\ LAT in Dept ;DO NOT lift affected arm above shoulder. S/P pacemaker/ICD implant. Verify lead placement Performed By: #### 4 1000, 62921, 17000 ####[place] [address] [place], [place] [address] [place] [address] PHOSPHORUS BLOODon Phosphate [Mass/Vol] 3.6 mg/dL Normal 2.5-5.[address] [facility] Comment on above: Order Comment: Check Pacemaker/AICD Lead Position, Chest X-ray PA \EANDE\ LAT in Dept ;DO NOT lift affected arm above shoulder. S/P pacemaker/ICD implant. Verify lead placement Performed By: #### 4 1000, 48816, 24666 ####[place] [address] PORTABLE CHEST 1 VIEWon 04-09 PORTABLE CHEST 1 VIEW [facility] Department of Radiology [address] [place] [id number] Patient Name: MAN PATEL : 1950 Sex: M Age: Race: White Pt. Location: [place] [address] Patient Status: I Ordered Date: 05/01/2022 10:35:00 [...] obtained. COMPARISON: Chest radiograph dated 08/01/2021 FINDINGS: [place]-Eleazar catheter placed via right internal jugular approach has tip in the right pulmonary artery. Dual-chamber pacemaker placed left subclavian approach. Moderate cardiomegaly. Moderate CHF. No pleural effusion. No pneumothorax. IMPRESSION: Moderate cardiomegaly. Moderate CHF. Electronically signed: Aldo Montana. Transcribed by: [email or web address], User Resident: Electronically Signed by: ALDO MONTANA @ 05/01/2022 11:[address] [facility] Comment on above: Order Comment: Check Line Position *BLOOD CULTUREon 04-30-2022 *BLOOD CULTURE Clinical Report: (D) Specimen: BLOOD CULTURE Collected: 04/29/2022 23:47 Status: Final Last Updated: 05/05/2022 06:59 CULT RES (Final) No Growth Day 5 Normal [facility] Comment on above: Performed By: #### 3 0313 ####[facility] *BLOOD CULTURE Clinical Report: (D) Specimen: BLOOD CULTURE Collected: 04/29/2022 23:43 Status: Final Last Updated: 05/05/2022 06:59 CULT RES (Final) No Growth Day 5 Normal [facility] Comment on above: Performed By: #### 3 0313 #### [facility] [address] [place] [address], [facility] BASIC METABOLIC PANELon 04-09 Calcium [Mass/Vol] 8.0 mg/dL Low 8.6-10.[address] [facility] Comment on above: Order Comment: No: D o not add to previous draw Performed By: #### 4 5506, 47541, 29831, 14457 ####[facility] [place] [address], [facility] Chloride [Moles/Vol] 100 mmol/L Normal 98-[address] [facility] Comment on above: Order Comment: No: D o not add to previous draw Performed By: #### 4 5506, 94457, 16638, 59072 ####[facility] [place] [address], [facility] CO2 [Moles/Vol] 31 mmol/L Normal 21-[address] [facility] Comment on above: Order Comment: No: D o not add to previous draw Performed By: #### 4 5506, 56877, 33969, 55995 ####[facility] [place] [address], [facility] Creatinine [Mass/Vol] 2.53 mg/dL High 0.70-1.[address] [facility] Comment on above: Order Comment: No: D o not add to previous draw Performed By: #### 4 5506, 20410, 37299, 58260 ####[facility] [facility] EGFR 27 ml/min/1.73sq m Abnormal >[address] [facility] Comment on above: Order Comment: No: D o not add to previous draw Result Comment: [facility]'s estimated glomerular filtration rate (eGFR) will no [...] of individuals. Performed By: #### 4 5506, 48595, 34853, 02613 ####[facility] [place] [address], [facility] Glucose [Mass/Vol] 94 mg/dL Normal 70-[address] [facility] Comment on above: Order Comment: No: D o not add to previous draw Performed By: #### 4 5506, 26226, 96850, 18547 ####[facility] [facility] [place] [address], [facility] Potassium [Moles/Vol] 3.5 mmol/L Normal 3.5-5.[address] [facility] Comment on above: Order Comment: No: D o not add to previous draw Performed By: #### 4 5506, 92516, 24869, 50898 ####[facility] [place] [address], [facility] Sodium [Moles/Vol] 139 mmol/L Normal 136-[address] [facility] Comment on above: Order Comment: No: D o not add to previous draw Performed By: #### 4 5506, 64244, 83690, 15597 ####[facility] [place] [address], [facility] Urea nitrogen [Mass/Vol] 49 mg/dL High 7-[address] [facility] Comment on above: Order Comment: No: D o not add to previous draw Performed By: #### 4 5506, 68133, 10064, 91927 ####[facility] [place] [address], [facility] CBC COMPLETE BLOOD COUNTon 0 - Erythrocyte distribution width (RBC) [Ratio] 20.8 % High 11.5-15.[address] [facility] Comment on above: Order Comment: No: D o not add to previous draw Performed By: #### 5 0608 #### [facility] [address] [facility] [place] [place] [address] Hematocrit (Bld) [Volume fraction] 28.3 % Low 39.0-50.[address] [facility] Comment on above: Order Comment: No: D o not add to previous draw Performed By: #### 5 0608 #### [facility] [address] [place] [address], [facility] Hemoglobin (Bld) [Mass/Vol] 8.5 g/dL Low 13.0-17.[address] [facility] Comment on above: Order Comment: No: D o not add to previous draw Performed By: #### 5 0608 #### [facility] [address] [place] [address], [facility] MCH (RBC) [Entitic mass] 24.3 pg Low 27.0-33.[address] [facility] Comment on above: Order Comment: No: D o not add to previous draw Performed By: #### 5 0608 #### [facility] [address] MCHC (RBC) [Mass/Vol] 30.0 g/dL Low 32.0-35.[address] [facility] Comment on above: Order Comment: No: D o not add to previous draw Performed By: #### 5 0608 #### [facility] [address] MCV (RBC) [Entitic vol] 80.9 fL Low 82.0-98.[address] [facility] Comment on above: Order Comment: No: D o not add to previous draw Performed By: #### 5 0608 #### [facility] [address] [facility] [place] [address], [facility] Nucleated RBC/100 WBC (Bld) [Ratio] 0 % Normal 0-[address] [facility] Comment on above: Order Comment: No: D o not add to previous draw Performed By: #### 5 0608 #### [facility] [address] [place] [address], [facility] PLAT CNT 139 10*3/uL Low 150-[address] [facility] Comment on above: Order Comment: No: D o not add to previous draw Performed By: #### 5 0608 #### [facility] [address] [place] [address], [facility] RBC (Bld) [#/Vol] 3.50 10*6/uL Low 4.20-5.[address] [facility] Comment on above: Order Comment: No: D o not add to previous draw Performed By: #### 5 0608 #### [facility] [address] [place] [address], [place] WBC (Bld) [#/Vol] 4.28 10*3/uL Normal 4.00-10.[address] [facility] Comment on above: Order Comment: No: D o not add to previous draw Performed By: #### 5 0608 #### [facility] [address] [place] [address], [facility] COOXIMETRYon 04-30-2022 COHB 2 % Normal [facility] Comment on above: Performed By: #### 3 0313 #### [facility] [address] [place] [address], [facility] METHB 1 % Normal [facility] Comment on above: Performed By: #### 3 0313 #### [facility] [address] [place] [address], [facility] Oxygen saturation in Blood 69.0 % Normal 65.0-75.[address] [facility] Comment on above: Performed By: #### 3 0313 #### [facility] [address] [place] [address], [facility] THB 12.0 g/dL Normal [facility] Comment on above: Performed By: #### 3 0313 #### [facility] [address] [place] [address], [place] Cardiovascular Lab Reporton 04-30-2022 Cardiovascular Lab Report [facility] Patient Name: [facility] Man Ace MR #: [id number] Department of Physician: Fidel Flowers M.D. Division of Service Date: 04/29/2022 Cardiology Birthdate: 1950 Adult Cardiovascular Room #: KASANDRA [id number] [facility] [address] [place] [id number] Cardiovascular Laboratory Report CLINICAL PRESENTATION: The patient is a 72-year-old male with past medical history significant for CAD, status post CABG, heart failure with EF 40%, CKD with acute kidney injury, atrial fibrillation on Eliquis, pacemaker, and hypertension. The patient was admitted with shortness of breath and lower extremity edema concerning for vsqqj-sm-utbfpuh systolic heart failure. He has worsening renal [...] Given worsening renal function, we will place [place]-Eleazar catheter for invasive hemodynamic monitoring in the ICU. The patient will likely require milrinone inotrope therapy. 2. Remainder of plan per Cardiology Service. 3. There was tracing of severe V-waves, which could be seen in mitral regurgitation. Correlation with echocardiogram is recommended. PROCEDURES: Right heart catheterization, ultrasound guidance for vascular access. INDICATION: Nliit-[id number] systolic heart failure. PROCEDURE DESCRIPTION: The patient [...] ultrasound guidance and micropuncture access technique, a 6-Ivorian sheath was placed in the right internal [...] renal function, we agreed to place a [place]-Eleazar catheter for monitoring in the ICU. Next, using a wire, I exchanged the sheath to an 8-Ivorian Cordis sheath. This was sutured to the skin. Next, I advanced Alarcon VIP STUNT DRIVER [place]-Eleazar catheter to the pulmonary artery position. The [...] Red M.D. Date Trans: 04/30/2022 10:29 A/surekha [id number] cc: Li Cintron M.D. Heart Failure/ Transplant Mailstop [address] [place] [address] [facility] MAGNESIUM BLOODon 04-30-2022 Magnesium [Mass/Vol] 2.3 mg/dL Normal 1.9-2.[address] [facility] Comment on above: Order Comment: No: D o not add to previous draw Performed By: #### 4 4564, 66976, 19895, 86432 ####[facility] [place] [address], [facility] PHOSPHORUS BLOODon Phosphate [Mass/Vol] 4.1 mg/dL Normal 2.5-5.[address] [facility] Comment on above: Performed By: #### 4 5506, 03611, 62861, 24234 ####[facility] [place] [address], [facility] URIC ACID BLOODon 04-30-2022 Urate [Mass/Vol] 13.5 mg/dL High 4.4-7.[address] [facility] Comment on above: Performed By: #### 4 5506, 26190, 04214, 93263 ####[facility] [place] [address], [facility] BASIC METABOLIC PANELon 04-09 Calcium [Mass/Vol] 8.4 mg/dL Low 8.6-10.[address] [facility] Comment on above: Order Comment: No: D o not add to previous draw Performed By: #### 3 0313 #### [facility] [address] [place] [address], [facility] Chloride [Moles/Vol] 100 mmol/L Normal 98-[address] [facility] Comment on above: Order Comment: No: D o not add to previous draw Performed By: #### 3 0313 #### [facility] [address] [place] [address], [place] CO2 [Moles/Vol] 30 mmol/L Normal 21-[address] [facility] Comment on above: Order Comment: No: D o not add to previous draw Performed By: #### 3 0313 #### [facility] [address] [place] [address], [place] Creatinine [Mass/Vol] 2.09 mg/dL High 0.70-1.[address] [facility] Comment on above: Order Comment: No: D o not add to previous draw Performed By: #### 3 0313 #### [facility] [address] [place] [address], [place] EGFR 33 ml/min/1.73sq m Abnormal >[address] [facility] Comment on above: Order Comment: No: D o not add to previous draw Result Comment: [facility]'s estimated glomerular filtration rate (eGFR) will no [...] individuals. Performed By: #### 3 0313 #### [facility] [address] [place] [address], [facility] Glucose [Mass/Vol] 96 mg/dL Normal 70-[address] [facility] Comment on above: Order Comment: No: D o not add to previous draw Performed By: #### 3 0313 #### [facility] [address] [place] [address], [facility] Potassium [Moles/Vol] 4.0 mmol/L Normal 3.5-5.[address] [facility] Comment on above: Order Comment: No: D o not add to previous draw Performed By: #### 3 0313 #### [facility] [address] [place] [address], [place] Sodium [Moles/Vol] 138 mmol/L Normal 136-[address] [facility] Comment on above: Order Comment: No: D o not add to previous draw Performed By: #### 3 0313 #### [facility] [address] [place] [address], [place] Urea nitrogen [Mass/Vol] 48 mg/dL High 7-[address] [facility] Comment on above: Order Comment: No: D o not add to previous draw Performed By: #### 3 0313 #### [facility] [address] [place] [address], [place] CBC COMPLETE BLOOD COUNTon 0 - Erythrocyte distribution width (RBC) [Ratio] 20.6 % High 11.5-15.[address] [facility] Comment on above: Order Comment: No: D o not add to previous draw Performed By: #### 5 0608 ####[facility] [place] [address] Hematocrit (Bld) [Volume fraction] 31.0 % Low 39.0-50.[address] [facility] Comment on above: Order Comment: No: D o not add to previous draw Performed By: #### 5 0608 ####[facility] Hemoglobin (Bld) [Mass/Vol] 8.9 g/dL Low 13.0-17.[address] [facility] Comment on above: Order Comment: No: D o not add to previous draw Performed By: #### 5 0608 ####[address] MCH (RBC) [Entitic mass] 23.1 pg Low 27.0-33.[address] [facility] Comment on above: Order Comment: No: D o not add to previous draw Performed By: #### 5 0608 ####[address] MCHC (RBC) [Mass/Vol] 28.7 g/dL Low 32.0-35.[address] [facility] Comment on above: Order Comment: No: D o not add to previous draw Performed By: #### 5 0608 ####[facility] MCV (RBC) [Entitic vol] 80.5 fL Low 82.0-98.[address] [facility] Comment on above: Order Comment: No: D o not add to previous draw Performed By: #### 5 0608 ####[address] Nucleated RBC/100 WBC (Bld) [Ratio] 0 % Normal 0-[address] [facility] Comment on above: Order Comment: No: D o not add to previous draw Performed By: #### 5 0608 ####[facility] [place] [address], [facility] PLAT CNT 145 10*3/uL Low 150-[address] [facility] Comment on above: Order Comment: No: D o not add to previous draw Performed By: #### 5 0608 ####[facility] [place] [address], [facility] RBC (Bld) [#/Vol] 3.85 10*6/uL Low 4.20-5.[address] [facility] Comment on above: Order Comment: No: D o not add to previous draw Performed By: #### 5 0608 ####[facility] [facility] [place] [place] [address], [facility] WBC (Bld) [#/Vol] 5.00 10*3/uL Normal 4.00-10.[address] [facility] Comment on above: Order Comment: No: D o not add to previous draw Performed By: #### 5 0608 ####[facility] [place] [address], [facility] COOXIMETRYon 04-29-2022 COHB 3 % Normal [facility] Comment on above: Performed By: #### 5 0103 #### [facility] [address] [place] [address], [facility] METHB 1 % Normal [facility] Comment on above: Performed By: #### 5 0103 #### [facility] [address] [place] [address], [facility] Oxygen saturation in Blood 74.0 % Normal 65.0-75.[address] [facility] Comment on above: Performed By: #### 5 3 #### [facility] [address] [place] [address], [facility] THB 8.4 g/dL Normal [facility] Comment on above: Performed By: #### 5 0103 #### [facility] [address] [place] [address], [facility] MAGNESIUM BLOODon 04-29-2022 Magnesium [Mass/Vol] 2.3 mg/dL Normal 1.9-2.[address] [facility] Comment on above: Order Comment: No: D o not add to previous draw Performed By: #### 3 0313 #### [facility] [address] [place] [address], [facility] BASIC METABOLIC PANELon 04-09 Calcium [Mass/Vol] 8.3 mg/dL Low 8.6-10.[address] [facility] Comment on above: Order Comment: No: D o not add to previous draw Performed By: #### 0 0071, 20142, 59158 ####[facility] [place] [address], [facility] Chloride [Moles/Vol] 100 mmol/L Normal 98-[address] [facility] Comment on above: Order Comment: No: D o not add to previous draw Performed By: #### 0 0071, 90850, 16357 ####[facility] [place] [address], [facility] CO2 [Moles/Vol] 29 mmol/L Normal 21-[address] [facility] Comment on above: Order Comment: No: D o not add to previous draw Performed By: #### 0 0071, 11779, 29490 ####[facility] [address], [facility] Creatinine [Mass/Vol] 2.51 mg/dL High 0.70-1.[address] [facility] Comment on above: Order Comment: No: D o not add to previous draw Performed By: #### 0 0071, 20261, 08326 ####[facility] EGFR 27 ml/min/1.73sq m Abnormal >[address] [facility] Comment on above: Order Comment: No: D o not add to previous draw Result Comment: [facility]'s estimated glomerular filtration rate (eGFR) will no [...] of individuals. Performed By: #### 0 0071, 02648, 88173 ####[facility] [place] [address], [facility] Glucose [Mass/Vol] 98 mg/dL Normal 70-[address] [facility] Comment on above: Order Comment: No: D o not add to previous draw Performed By: #### 0 0071, 07734, 26300 ####[facility] [place] [address], [facility] Potassium [Moles/Vol] 3.9 mmol/L Normal 3.5-5.[address] [facility] Comment on above: Order Comment: No: D o not add to previous draw Performed By: #### 0 0071, 15566, 43511 ####[facility] [place] [address], [facility] Sodium [Moles/Vol] 138 mmol/L Normal 136-[address] [facility] Comment on above: Order Comment: No: D o not add to previous draw Performed By: #### 0 0071, 78324, 86673 ####[facility] [facility] [place] [address], [facility] Urea nitrogen [Mass/Vol] 55 mg/dL High 7-[address] [facility] Comment on above: Order Comment: No: D o not add to previous draw Performed By: #### 0 0071, 69292, 62721 ####[facility] CBC COMPLETE BLOOD COUNTon 0 - Erythrocyte distribution width (RBC) [Ratio] 20.2 % High 11.5-15.[address] [facility] Comment on above: Order Comment: No: D o not add to previous draw Performed By: #### 5 0608 ####[facility] Hematocrit (Bld) [Volume fraction] 28.9 % Low 39.0-50.[address] [facility] Comment on above: Order Comment: No: D o not add to previous draw Performed By: #### 5 0608 ####[facility] Hemoglobin (Bld) [Mass/Vol] 8.7 g/dL Low 13.0-17.[address] [facility] Comment on above: Order Comment: No: D o not add to previous draw Performed By: #### 5 0608 ####[place] [id number] [address] MCH (RBC) [Entitic mass] 24.0 pg Low 27.0-33.[address] [facility] Comment on above: Order Comment: No: D o not add to previous draw Performed By: #### 5 0608 ####[facility] MCHC (RBC) [Mass/Vol] 30.1 g/dL Low 32.0-35.[address] [facility] Comment on above: Order Comment: No: D o not add to previous draw Performed By: #### 5 0608 ####[facility] [place] [address] MCV (RBC) [Entitic vol] 79.6 fL Low 82.0-98.[address] [facility] Comment on above: Order Comment: No: D o not add to previous draw Performed By: #### 5 0608 ####[facility] Nucleated RBC/100 WBC (Bld) [Ratio] 0 % Normal 0-[address] [facility] Comment on above: Order Comment: No: D o not add to previous draw Performed By: #### 5 0608 ####[facility] [place] [address], [facility] PLAT CNT 162 10*3/uL Normal 150-[address] [facility] Comment on above: Order Comment: No: D o not add to previous draw Performed By: #### 5 0608 ####[facility] [place] [address], [facility] RBC (Bld) [#/Vol] 3.63 10*6/uL Low 4.20-5.[address] [facility] Comment on above: Order Comment: No: D o not add to previous draw Performed By: #### 5 0608 ####[facility] [place] [address], [facility] WBC (Bld) [#/Vol] 6.21 10*3/uL Normal 4.00-10.[address] [facility] Comment on above: Order Comment: No: D o not add to previous draw Performed By: #### 5 0608 ####[facility] [facility] LIPID PROFILEon 04-28-2022 Cholesterol [Mass/Vol] 92 mg/dL Low 120-[address] [facility] Comment on above: Order Comment: Yes: Add to Previous draw if able Result Comment: CHOL ESTEROL REFERENCE RANGE: 20 YEARS AND OLDER CARDIOVASCULAR RISK Less than 200 mg/dl Low Risk 200 to 239 mg/dl Borderline Risk 240 mg/dl and greater High Risk Performed By: #### 0 0071, 63935, 13016 ####[facility] [place] [address], [facility] Cholesterol in HDL [Mass/Vol] 37 mg/dL Normal 23-[address] [facility] Comment on above: Order Comment: Yes: Add to Previous draw if able Result Comment: Slig ht variation in normal range could be due to gender and/or age. HDL CHOLESTEROL REFERENCE RANGE: 20 years and older Cardiovascular Risk > or =60 mg/dL Desirable 40 TO 59 mg/dL Low Risk <40 mg/dL High Risk Performed By: #### 0 0071, 82144, 39841 ####[facility] [place] [address], [facility] Cholesterol in LDL [Mass/Vol] 47 mg/dL Normal 0-[address] [facility] Comment on above: Order Comment: Yes: Add to Previous draw if able Result Comment: LDL IS A CALCULATION LDL IS ONLY VALID IF THE TRIG IS LESS THAN 400. Performed By: #### 0 0071, 49796, 10608 ####[facility] [place] [address], [facility] Cholesterol.total/Chol esterol in HDL [Mass ratio] 2.5 {ratio} Normal .0-4.[address] [facility] Comment on above: Order Comment: Yes: Add to Previous draw if able Performed By: #### 0 0071, 05591, 28343 ####[facility] [place] [address], [facility] NON-HDL CHOLESTEROL 55 mg/dL Normal [facility] Comment on above: Order Comment: Yes: Add to Previous draw if able Performed By: #### 0 0071, 01194, 61001 ####[facility] [place] [address], [facility] Triglyceride [Mass/Vol] 40 mg/dL Normal 40-[address] [facility] Comment on above: Order Comment: Yes: Add to Previous draw if able Result Comment: TRIG LYCERIDE REFERENCE RANGE: 20 YEARS AND OLDER CARDIOVASCULAR RISK LESS THAN 150 mg/dl LOW RISK 150 TO 199 mg/dl BORDERLINE RISK 200 mg/dl AND GREATER HIGH RISK Performed By: #### 0 0071, 68205, 20689 ####[facility] [place] [address], [facility] VLDL CHOL 8 mg/dL Normal 0-[address] [facility] Comment on above: Order Comment: Yes: Add to Previous draw if able Performed By: #### 0 0071, 65561, 36169 ####[facility] [place] [address], [facility] MAGNESIUM BLOODon 04-28-2022 Magnesium [Mass/Vol] 2.4 mg/dL Normal 1.9-2.[address] [facility] Comment on above: Order Comment: No: D o not add to previous draw Performed By: #### 0 0071, 64437, 37306 ####[facility] [facility] [place] [address], [facility] BASIC METABOLIC PANELon 04-09 Calcium [Mass/Vol] 8.4 mg/dL Low 8.6-10.[address] [facility] Comment on above: Order Comment: No: D o not add to previous draw Performed By: #### 7 0207 #### [facility] [address] [place] [address], [place] Chloride [Moles/Vol] 100 mmol/L Normal 98-[address] [facility] Comment on above: Order Comment: No: D o not add to previous draw Performed By: #### 7 0207 #### [facility] [address] [place] [address], [place] CO2 [Moles/Vol] 27 mmol/L Normal 21-[address] [facility] Comment on above: Order Comment: No: D o not add to previous draw Performed By: #### 7 0207 #### [facility] [address] [place] [address], [place] Creatinine [Mass/Vol] 2.46 mg/dL High 0.70-1.[address] [facility] Comment on above: Order Comment: No: D o not add to previous draw Performed By: #### 7 0207 #### [facility] [address] [place] [address], [facility] EGFR 27 ml/min/1.73sq m Abnormal >[address] [facility] Comment on above: Order Comment: No: D o not add to previous draw Result Comment: [facility]'s estimated glomerular filtration rate (eGFR) will no [...] individuals. Performed By: #### 7 0207 #### [facility] [address] [place] [address], [facility] Glucose [Mass/Vol] 96 mg/dL Normal 70-[address] [facility] Comment on above: Order Comment: No: D o not add to previous draw Performed By: #### 7 0207 #### [facility] [address] [place] [address], [facility] Potassium [Moles/Vol] 3.8 mmol/L Normal 3.5-5.[address] [facility] Comment on above: Order Comment: No: D o not add to previous draw Performed By: #### 7 0207 #### [facility] [address] [place] [address], [place] Sodium [Moles/Vol] 136 mmol/L Normal 136-[address] [facility] Comment on above: Order Comment: No: D o not add to previous draw Performed By: #### 7 0207 #### [facility] [address] [place] [address], [place] Urea nitrogen [Mass/Vol] 57 mg/dL High 7-[address] [facility] Comment on above: Order Comment: No: D o not add to previous draw Performed By: #### 7 0207 #### [facility] [address] [place] [address], [facility] BASIC METABOLIC PANELon 08- Calcium [Mass/Vol] 8.7 mg/dL Normal 8.6-10.[address] [facility] Comment on above: Order Comment: No: D o not add to previous draw Performed By: #### 3 0313 #### [facility] [address] [place] [address], [facility] Chloride [Moles/Vol] 100 mmol/L Normal 98-[address] [facility] Comment on above: Order Comment: No: D o not add to previous draw Performed By: #### 3 0313 #### [facility] [address] [place] [address], [facility] CO2 [Moles/Vol] 26 mmol/L Normal 21-[address] [facility] Comment on above: Order Comment: No: D o not add to previous draw Performed By: #### 3 0313 #### [facility] [address] [place] [address], [facility] Creatinine [Mass/Vol] 2.63 mg/dL High 0.70-1.[address] [facility] Comment on above: Order Comment: No: D o not add to previous draw Performed By: #### 3 0313 #### [facility] [address] [place] [address], [facility] EGFR 25 ml/min/1.73sq m Abnormal >[address] [facility] Comment on above: Order Comment: No: D o not add to previous draw Result Comment: [facility]'s estimated glomerular filtration rate (eGFR) will no [...] individuals. Performed By: #### 3 0313 #### [facility] [address] [place] [address], [facility] Glucose [Mass/Vol] 101 mg/dL High 70-[address] [facility] Comment on above: Order Comment: No: D o not add to previous draw Performed By: #### 3 0313 #### [facility] [address] [place] [address], [facility] Potassium [Moles/Vol] 4.3 mmol/L Normal 3.5-5.[address] [facility] Comment on above: Order Comment: No: D o not add to previous draw Performed By: #### 3 0313 #### [facility] [address] [facility] [place] [address], [facility] Sodium [Moles/Vol] 136 mmol/L Normal 136-[address] [facility] Comment on above: Order Comment: No: D o not add to previous draw Performed By: #### 3 0313 #### [facility] [address] [place] [address], [facility] Urea nitrogen [Mass/Vol] 57 mg/dL High 7-[address] [facility] Comment on above: Order Comment: No: D o not add to previous draw Performed By: #### 3 0313 #### [facility] [address] [place] [address], [facility] CBC W/DIFFon 04-26-2022 ABS IMM GRANS 0.0 10*3/uL Normal 0.0-0.[address] [facility] Comment on above: Order Comment: No: D o not add to previous draw Performed By: #### 5 0103 #### [facility] [address] [place] [address], [facility] ABS NEUTROPHILS 5.2 10*3/uL Normal 1.6-7.[address] [facility] Comment on above: Order Comment: No: D o not add to previous draw Performed By: #### 5 0103 #### [facility] [address] [place] [address], [facility] Basophils (Bld) [#/Vol] 0.0 10*3/uL Normal 0.0-0.[address] [facility] Comment on above: Order Comment: No: D o not add to previous draw Performed By: #### 5 0103 #### [facility] [address] [place] [address], [facility] Basophils/100 WBC (Bld) 0.6 % Normal 0.0-1.[address] [facility] Comment on above: Order Comment: No: D o not add to previous draw Performed By: #### 5 0103 #### [facility] [address] [place] [address], [place] Eosinophils (Bld) [#/Vol] 0.2 10*3/uL Normal 0.0-0.[address] [facility] Comment on above: Order Comment: No: D o not add to previous draw Performed By: #### 5 0103 #### [facility] [address] [place] [address], [facility] Eosinophils/100 WBC (Bld) 3.4 % Normal 0.0-6.[address] [facility] Comment on above: Order Comment: No: D o not add to previous draw Performed By: #### 5 0103 #### [facility] [address] [place] [address], [facility] Erythrocyte distribution width (RBC) [Ratio] 19.9 % High 11.5-15.[address] [facility] Comment on above: Order Comment: No: D o not add to previous draw Performed By: #### 5 0103 #### [facility] [address] [place] [address], [place] Hematocrit (Bld) [Volume fraction] 30.2 % Low 39.0-50.[address] [facility] Comment on above: Order Comment: No: D o not add to previous draw Performed By: #### 5 0103 #### [facility] [address] [place] [address], [facility] Hemoglobin (Bld) [Mass/Vol] 9.0 g/dL Low 13.0-17.[address] [facility] Comment on above: Order Comment: No: D o not add to previous draw Performed By: #### 5 0103 #### [facility] [address] [place] [address], [facility] IMMATURE GRANS 0.2 % Normal 0.0-1.[address] [facility] Comment on above: Order Comment: No: D o not add to previous draw Performed By: #### 5 0103 #### [facility] [address] [place] [address], [facility] Lymphocytes (Bld) [#/Vol] 0.4 10*3/uL Low 1.2-4.[address] [facility] Comment on above: Order Comment: No: D o not add to previous draw Performed By: #### 5 0103 #### [facility] [address] [place] [address], [facility] Lymphocytes/100 WBC (Bld) 6.6 % Low 20.0-45.[address] [facility] Comment on above: Order Comment: No: D o not add to previous draw Performed By: #### 5 0103 #### [facility] [address] [place] [address], [facility] MCH (RBC) [Entitic mass] 23.4 pg Low 27.0-33.[address] [facility] Comment on above: Order Comment: No: D o not add to previous draw Performed By: #### 5 0103 #### [facility] [address] [place] [address], [facility] MCHC (RBC) [Mass/Vol] 29.8 g/dL Low 32.0-35.[address] [facility] Comment on above: Order Comment: No: D o not add to previous draw Performed By: #### 5 0103 #### [facility] [address] [place] [address], [facility] MCV (RBC) [Entitic vol] 78.4 fL Low 82.0-98.[address] [facility] Comment on above: Order Comment: No: D o not add to previous draw Performed By: #### 5 0103 #### [facility] [address] [place] [address], [facility] Monocytes (Bld) [#/Vol] 0.7 10*3/uL Normal 0.1-1.[address] [facility] Comment on above: Order Comment: No: D o not add to previous draw Performed By: #### 5 0103 #### [facility] [address] [place] [address], [facility] MONOS 10.3 % Normal 5.0-12.[address] [facility] Comment on above: Order Comment: No: D o not add to previous draw Performed By: #### 5 0103 #### [facility] [address] [place] [address], [facility] Neutrophils/100 WBC (Bld) 78.9 % High 40.0-72.[address] [facility] Comment on above: Order Comment: No: D o not add to previous draw Performed By: #### 5 0103 #### [facility] [address] [place] [address], [facility] Nucleated RBC/100 WBC (Bld) [Ratio] 0 % Normal 0-[address] [facility] Comment on above: Order Comment: No: D o not add to previous draw Performed By: #### 5 0103 #### [facility] [address] [place] [address], [facility] PLAT CNT 196 10*3/uL Normal 150-[address] [facility] Comment on above: Order Comment: No: D o not add to previous draw Performed By: #### 5 0103 #### [facility] [address] [place] [address], [facility] RBC (Bld) [#/Vol] 3.85 10*6/uL Low 4.20-5.[address] [facility] Comment on above: Order Comment: No: D o not add to previous draw Performed By: #### 5 0103 #### [facility] [address] [place] [address], [facility] WBC (Bld) [#/Vol] 6.52 10*3/uL Normal 4.00-10.[address] [facility] Comment on above: Order Comment: No: D o not add to previous draw Performed By: #### 5 0103 #### [facility] [address] [place] [address], [facility] HEMOGLOBIN A1Con 04-26-2022 Glucose [Moles/Vol] 111 mmol/L Normal [facility] Comment on above: Order Comment: Check Pacemaker/AICD Lead Position, Chest X-ray PA \EANDE\ LAT in Dept ;DO NOT lift affected arm above shoulder. S/P pacemaker/ICD implant. Verify lead placement Performed By: #### 3 1791 ####[facility] [facility] HbA1c (Bld) [Mass fraction] 5.5 % Normal 4.0-6.[address] [facility] Comment on above: Order Comment: Check Pacemaker/AICD Lead Position, Chest X-ray PA \EANDE\ LAT in Dept ;DO NOT lift affected arm above shoulder. S/P pacemaker/ICD implant. Verify lead placement Performed By: #### 3 1791 ####[facility] [facility].[address] MAGNESIUM BLOODon 04-26-2022 Magnesium [Mass/Vol] 2.6 mg/dL Normal 1.9-2.[address] [facility] Comment on above: Order Comment: No: D o not add to previous draw Performed By: #### 3 0313 #### [facility] [address] [place] [address], [facility] APTTon 04-25-2022 aPTT Coag (Bld) [Time] 49.8 s High 25.0-35.[address] [facility] Comment on above: Order Comment: No: [...] PURPOSE. Performed By: #### 5 0103 #### [facility] [address] [place] [address], [facility] BASIC METABOLIC PANELon 04-08 Calcium [Mass/Vol] 8.8 mg/dL Normal 8.6-10.[address] [facility] Comment on above: Order Comment: No: D o not add to previous draw Performed By: #### 3 5 #### [facility] [address] [place] [address], [facility] Chloride [Moles/Vol] 100 mmol/L Normal 98-[address] [facility] Comment on above: Order Comment: No: D o not add to previous draw Performed By: #### 3 2044 #### [facility] [address] [place] [address], [facility] CO2 [Moles/Vol] 27 mmol/L Normal 21-[address] [facility] Comment on above: Order Comment: No: D o not add to previous draw Performed By: #### 3 2044 #### [facility] [address] [place] [address], [facility] Creatinine [Mass/Vol] 2.82 mg/dL High 0.70-1.[address] [facility] Comment on above: Order Comment: No: D o not add to previous draw Performed By: #### 3 2044 #### [facility] [address] [place] [address], [facility] EGFR 23 ml/min/1.73sq m Abnormal >[address] [facility] Comment on above: Order Comment: No: D o not add to previous draw Result Comment: [facility]'s estimated glomerular filtration rate (eGFR) will no [...] individuals. Performed By: #### 3 2044 #### [facility] [address] [place] [address], [facility] Glucose [Mass/Vol] 114 mg/dL High 70-[address] [facility] Comment on above: Order Comment: No: D o not add to previous draw Performed By: #### 3 2044 #### [facility] [address] [facility] [place] [address], [facility] Potassium [Moles/Vol] 4.4 mmol/L Normal 3.5-5.[address] [facility] Comment on above: Order Comment: No: D o not add to previous draw Performed By: #### 3 2044 #### [facility] [address] [place] [address], [place] Sodium [Moles/Vol] 137 mmol/L Normal 136-[address] [facility] Comment on above: Order Comment: No: D o not add to previous draw Performed By: #### 3 2044 #### [facility] [address] [place] [address], [place] Urea nitrogen [Mass/Vol] 61 mg/dL High 7-[address] [facility] Comment on above: Order Comment: No: D o not add to previous draw Performed By: #### 3 5 #### [facility] [address] BNP (B-TYPE NATRIURETIC PEPT ANH)on 04-25-2022 Natriuretic peptide B (Bld) [Mass/Vol] 1813 pg/mL High 0-[address] [facility] Comment on above: Order Comment: Yes: Add to Previous draw if able Result Comment: Give n the appropriate clinical setting a BNP result of >100 pg/mL indicates congestive heart failure. Performed By: #### 3 5 #### [facility] [address] C REACTIVE PROTEINon 022 CRP [Mass/Vol] 17.2 mg/L High 0.0-7.[address] [facility] Comment on above: Order Comment: No: D o not add to previous draw Performed By: #### 5 0103 #### [facility] [address] CBC W/DIFFon 04-25-2022 ABS IMM GRANS 0.0 10*3/uL Normal 0.0-0.[address] [facility] Comment on above: Performed By: #### 5 102 #### [facility] [address] ABS NEUTROPHILS 5.4 10*3/uL Normal 1.6-7.[address] [facility] Comment on above: Performed By: #### 5 102 #### [facility] [address] [place] [address], [facility] Basophils (Bld) [#/Vol] 0.0 10*3/uL Normal 0.0-0.[address] [facility] Comment on above: Performed By: #### 5 102 #### [facility] [address] [place] [address], [facility] Basophils/100 WBC (Bld) 0.6 % Normal 0.0-1.[address] [facility] Comment on above: Performed By: #### 5 0103 #### [facility] [address] [facility] [place] [address], [facility] Eosinophils (Bld) [#/Vol] 0.2 10*3/uL Normal 0.0-0.[address] [facility] Comment on above: Performed By: #### 5 0103 #### [facility] [address] [place] [address], [facility] Eosinophils/100 WBC (Bld) 2.5 % Normal 0.0-6.[address] [facility] Comment on above: Performed By: #### 5 0103 #### [facility] [address] Erythrocyte distribution width (RBC) [Ratio] 19.9 % High 11.5-15.[address] [facility] Comment on above: Performed By: #### 5 0103 #### [facility] [address] [facility]. [address] Hematocrit (Bld) [Volume fraction] 31.6 % Low 39.0-50.[address] [facility] Comment on above: Performed By: #### 5 0103 #### [facility] [address] [facility]. [address] Hemoglobin (Bld) [Mass/Vol] 9.3 g/dL Low 13.0-17.[address] [facility] Comment on above: Performed By: #### 5 0103 #### [facility] [address] IMMATURE GRANS 0.2 % Normal 0.0-1.[address] [facility] Comment on above: Performed By: #### 5 0103 #### [facility] [address] [facility] [place] [address], [facility] Lymphocytes (Bld) [#/Vol] 0.3 10*3/uL Low 1.2-4.[address] [facility] Comment on above: Performed By: #### 5 0103 #### [facility] [facility] [address] [facility] [place] [address], [facility] Lymphocytes/100 WBC (Bld) 4.4 % Low 20.0-45.[address] [facility] Comment on above: Performed By: #### 5 3 #### [facility] [address] [facility] [address], [facility] MCH (RBC) [Entitic mass] 23.1 pg Low 27.0-33.[address] [facility] Comment on above: Performed By: #### 0103 #### [facility] [address] [place] [address], [facility] MCHC (RBC) [Mass/Vol] 29.4 g/dL Low 32.0-35.[address] [facility] Comment on above: Performed By: #### 3 #### [facility] [address] [facility] [place] [address], [facility] MCV (RBC) [Entitic vol] 78.6 fL Low 82.0-98.[address] [facility] Comment on above: Performed By: #### 5 3 #### [facility] [address] [place] [address], [facility] Monocytes (Bld) [#/Vol] 0.6 10*3/uL Normal 0.1-1.[address] [facility] Comment on above: Performed By: #### 5 3 #### [facility] [address] [place] [address], [facility] MONOS 8.9 % Normal 5.0-12.[address] [facility] Comment on above: Performed By: #### 5 3 #### [facility] [address] [place] [address], [facility] Neutrophils/100 WBC (Bld) 83.4 % High 40.0-72.[address] [facility] Comment on above: Performed By: #### 5 0103 #### [facility] [address] [place] [address], [facility] Nucleated RBC/100 WBC (Bld) [Ratio] 0 % Normal 0-[address] [facility] Comment on above: Performed By: #### 5 0103 #### [facility] [address] [place] [address], [place] PLAT CNT 191 10*3/uL Normal 150-[address] [facility] Comment on above: Performed By: #### 5 0103 #### [facility] [address] [place] [address], [facility] RBC (Bld) [#/Vol] 4.02 10*6/uL Low 4.20-5.[address] [facility] Comment on above: Performed By: #### 5 0103 #### [facility] [address] [place] [address], [facility] WBC (Bld) [#/Vol] 6.43 10*3/uL Normal 4.00-10.[address] [facility] Comment on above: Performed By: #### 5 0103 #### [facility] [address] [place] [address], [facility] COMPLEMENT 3on 04-25-2022 COMPLEMENT 3 104 mg/dL Normal 79-[address] [facility] Comment on above: Order Comment: No: D o not add to previous draw Performed By: #### 5 0103 #### [facility] [address] [place] [address], [facility] COMPLEMENT 4on 04-25-2022 COMPLEMENT 4 23 mg/dL Normal 16-[address] [facility] Comment on above: Order Comment: No: D o not add to previous draw Performed By: #### 5 0103 #### [facility] [address] [place] [address], [facility] CPKon 04-25-2022 CK [Catalytic activity/Vol] 23 U/L Low 30-[address] [facility] Comment on above: Order Comment: No: D o not add to previous draw Performed By: #### 7 0207 #### [facility] [address] [place] [address], [facility] CREATININE URINE RANDOMon Creatinine (U) [Mass/Vol] 104.0 mg/dL Normal [facility] Comment on above: Order Comment: Check Pacemaker/AICD Lead Position, Chest X-ray PA \EANDE\ LAT in Dept ;DO NOT lift affected arm above shoulder. S/P pacemaker/ICD implant. Verify lead placement Result Comment: Ther e are no established reference values for random urine specimens Performed By: #### 4 1919, [address]6979 ####[facility] FERRITINon 04-25-2022 Ferritin [Mass/Vol] 50 ng/mL Normal 24-[address] [facility] Comment on above: Order Comment: No: D o not add to previous draw Performed By: #### 7 0207 #### [facility] [address] [place] [place] [address], [facility] HEPATITIS B CORE ANTIBODYon 04-25-2022 HEP B CORE AB Non-Reactive Normal NONREACTIVE [facility] Comment on above: Order Comment: No: D o not add to previous draw Performed By: #### 7 0207 #### [facility] [address] [place] [address], [facility] HEPATITIS C ANTIBODYon 04-25 ANTI-HCV Non-Reactive Normal NONREACTIVE [facility] Comment on above: Order Comment: No: D o not add to previous draw Performed By: #### 7 0207 #### [facility] [address] [place] [address], [facility] IMMUNOFIXATION BLOODon 04-25 IgA [Mass/Vol] 733 mg/dL High 60-[address] [facility] Comment on above: Performed By: #### 5 0103 #### [facility] [address] [facility] Francisco. [address] IgG [Mass/Vol] 1330 mg/dL Normal 591-[address] [facility] Comment on above: Performed By: #### 5 0103 #### [facility] [address] [place] [address], [facility] IgM [Mass/Vol] 365 mg/dL High 54-[address] [facility] Comment on above: Performed By: #### 5 0103 #### [facility] [address] [place] [address], [facility] IMMUNOFIXATION Normal [facility] Comment on above: Result Comment: Seru m immunofixation reveals a monoclonal [place] M gammopathy. SEE SEPARATE REPORT Performed By: #### 5 0103 #### [facility] [address] [facility] KAPPA LIGHT CHN See [place] report. Normal 0.33-1.[address] [facility] Comment on above: Performed By: #### 5 0103 #### [facility] [address] [place] [address], [facility] KAPPA/LAMDBA RATIO See [place] report. Normal 0.26-1.[address] [facility] Comment on above: Result Comment: For patients with renal impairment, use a kappa/lambda ratio of 0.37-3.10 Performed By: #### 5 0103 #### [facility] [address] [place] [address], [facility] LAMBDA LIGHT CHN See [place] report. Normal 0.57-2.[address] [facility] Comment on above: Performed By: #### 5 0103 #### [facility] [address] [place] [address], [facility] LIVER BATTERYon 04-25-2022 Albumin [Mass/Vol] 3.3 g/dL Low 3.5-5.[address] [facility] Comment on above: Order Comment: No: D o not add to previous draw Performed By: #### 3 2044 #### [facility] [address] [place] [address], [place] ALKALINE PHOSPH 78 IU/L Normal 34-[address] [facility] Comment on above: Order Comment: No: D o not add to previous draw Performed By: #### 3 2044 #### [facility] [address] [place] [address], [place] ALT [Catalytic activity/Vol] 15 U/L Normal 7-[address] [facility] Comment on above: Order Comment: No: D o not add to previous draw Performed By: #### 3 2044 #### [facility] [address] [place] [address], [place] AST [Catalytic activity/Vol] 16 U/L Normal 13-[address] [facility] Comment on above: Order Comment: No: D o not add to previous draw Performed By: #### 3 2044 #### [facility] [address] [place] [address], [place] Bilirubin [Mass/Vol] 1.2 mg/dL High 0.3-1.[address] [facility] Comment on above: Order Comment: No: D o not add to previous draw Performed By: #### 3 2044 #### [facility] [address] [place] [address], [place] Bilirubin.direct [Mass/Vol] 0.4 mg/dL High 0.0-0.[address] [facility] Comment on above: Order Comment: No: D o not add to previous draw Performed By: #### 3 2044 #### [facility] [address] [place] [address], [place] Protein [Mass/Vol] 6.8 g/dL Normal 6.0-8.[address] [facility] Comment on above: Order Comment: No: D o not add to previous draw Performed By: #### 3 2044 #### [facility] [address] [place] [address], [place] MAGNESIUM BLOODon 04-25-2022 Magnesium [Mass/Vol] 2.7 mg/dL Normal 1.9-2.[address] [facility] Comment on above: Order Comment: No: D o not add to previous draw Performed By: #### 3 5 #### [facility] [address] [facility] [place] [address], [facility] PHOSPHORUS BLOODon Phosphate [Mass/Vol] 3.7 mg/dL Normal 2.5-5.[address] [facility] Comment on above: Order Comment: No: D o not add to previous draw Performed By: #### 7 0207 #### [facility] [address] [facility] [place] [address] [place] [address] POC SARS COV2 ANTIGEN NEGATI VEon 04-25-2022 POC SARS COV2 ANTIGEN NEG Negative Normal NEGATIVE [facility] Comment on above: Result Comment: Nega tive [...] antigen from SARS-CoV-2 in direct nasopharyngeal swab (IT APPLICATIONS DEVELOPER) specimens from individuals who are suspected of [...] Certificate of Accreditation. Performed By: #### 3 4 ####[facility] [place] [address], [facility] PROTEIN ELECT Marcos 04-25-2022 Protein [Mass/Vol] 6.9 g/dL Normal 6.0-8.[address] [facility] Comment on above: Order Comment: No: D o not add to previous draw Performed By: #### 7 0207 #### [facility] [address] [place] [address], [facility] Protein [Mass/Vol] 0.20 g/dL High 0.00-0.[address] [facility] Comment on above: Order Comment: No: D o not add to previous draw Performed By: #### 7 0207 #### [facility] [address] [place] [address], [facility] PROTEIN ELECT Normal 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 SEE SEPARATE REPORT Performed By: #### 7 0207 #### [facility] [address] [place] [address], [facility] PROTEIN ELECT URon 2 PROTEIN ELECT No abnormal bands se en. SEE SEPARATE REPORT Normal [facility] Comment on above: Order Comment: Check Pacemaker/AICD Lead Position, Chest X-ray PA \EANDE\ LAT in Dept ;DO NOT lift affected arm above shoulder. S/P pacemaker/ICD implant. Verify lead placement Performed By: #### 4 1918, 01711 ####[facility] [facility] [place] [address], [facility] U TOTAL PROTEIN 47.8 mg/dL Normal [facility] Comment on above: Order Comment: Check Pacemaker/AICD Lead Position, Chest X-ray PA \EANDE\ LAT in Dept ;DO NOT lift affected arm above shoulder. S/P pacemaker/ICD implant. Verify lead placement Result Comment: Ther e are no established reference values for random urine specimens Performed By: #### 4 1918, 46541 ####[facility] [place] [address], [facility] PROTHROMBIN TIMEon 2 INR Coag (PPP) [Relative time] 1.71 {INR} High 0.91-1.[address] [facility] Comment on above: Order Comment: No: [...] 1995;[id number]. Performed By: #### 5 0103 #### [facility] [address] [place] [address], [facility] PT Coag (PPP) [Time] 19.8 s High 12.3-14.[address] [facility] Comment on above: Order Comment: No: D o not add to previous draw Result Comment: ALL RESULTS MUST BE INTERPRETED WITH RESPECT TO BLOOD DRAWING ARTIFACT OR DILUTION ERROR OF ANTICOAGULANT AT THE TIME OF SAMPLING. Performed By: #### 5 0103 #### [facility] [address] [place] [address], [facility] SEDIMENTATION RATEon 022 SED RATE 63 mm/hr High 0-[address] [facility] Comment on above: Order Comment: No: D o not add to previous draw Performed By: #### 5 0608 #### [facility] [address] [place] [address], [facility] SERUM FREE LIGHT CHAINS ILon 04-25-2022 FREE KAPPA LIGHT CHAINS 14.36 mg/dL High 0.37-1.[address] [facility] FREE KAPPA/LAMBDA RATIO 2.00 High 0.26-1.[address] [facility] FREE LAMBDA LIGHT CHAINS 7.19 mg/dL High 0.57-2.[address] [facility] [place] Normal [facility] Comment on above: Result Comment: Test Performed by [employer] [address] [place] [address] - Released 05/02/2022 21:21 Result changed by IF on 05/02/2022 21:21. The previous value was Test Performed by [employer] [address] [place] [address] [phone].. TIBC- INCLUDES IRONon 2021 FE SATURATION 9 % Low 20-[address] [facility] Comment on above: Order Comment: No: D o not add to previous draw Performed By: #### 7 0207 #### [facility] [address] [place] [address], [facility] Iron [Mass/Vol] 31 ug/dL Low 50-[address] [facility] Comment on above: Order Comment: No: D o not add to previous draw Performed By: #### 7 0207 #### [facility] [address] [place] [address], [facility] TIBC 349 mcg/dL Normal 250-[address] [facility] Comment on above: Order Comment: No: D o not add to previous draw Performed By: #### 7 0207 #### [facility] [address] [place] [address], [place] UIBC 318 mcg/dL Normal 155-[address] [facility] Comment on above: Order Comment: No: D o not add to previous draw Performed By: #### 7 0207 #### [facility] [address] [place] [address], [facility] TROPONIN-Ion 08-18-2022 Troponin I.cardiac [Mass/Vol] 0.03 ng/mL Normal 0.00-0.[address] [facility] Comment on above: Order Comment: No: D o not add to previous draw Result Comment: REFE RENCE RANGES: 0.00 - 0.04 ng/ml NORMAL 0.05 - 0.50 ng/ml INDETERMINATE > 0.50 ng/ml CONSISTENT WITH AN M.I. Performed By: #### 3 2045 #### [address] US RENAL WITH BLADDERon 04-08 US RENAL WITH BLADDER [facility] Department of Radiology [address] [place] [id number] Patient Name: MAN PATEL : 1950 Sex: M Age: Race: White Pt. Location: [address] [place] [address] Patient Status: I Ordered Date: 04/25/2022 3:40:00 [...] cyst. Electronically signed: Joel Lambert. Transcribed by: [email or web address], User Resident: Electronically Signed by: TIFFANIE CASTILLO @ 05/08/2022 08:[address] [facility] Comment on above: Order Comment: R/O H ydronephrosis BNPon 04-24-2022 Natriuretic peptide B (Bld) [Mass/Vol] 77294.0 pg/mL Critically high <=900.0 [facility] Comment on above: Performed By: #### H STROPN, BNP, BMP ####[facility] [address] [place] [address]Dr. Elba Anthony CBC AUTO DIFFon 04-24-2022 BASO # 0.1 103/ul Normal 0.0-0.1 [facility] Comment on above: Performed By: #### C BC ####[facility] [address] [place] [id number]. Elba Anthony Basophils/100 WBC (Bld) 0.8 % Normal 0.2-2.0 [facility] Comment on above: Performed By: #### C BC ####[facility] [address] [place] [address]DrLatoya Anthony EO # 0.2 103/ul Normal 0.0-0.7 [facility] Comment on above: Performed By: #### C BC ####[facility] [address] [place] [address]Dr. Elba Anthony Eosinophils/100 WBC (Bld) 3.0 % Normal 0.9-7.0 [facility] Comment on above: Performed By: #### C BC ####[facility] [address] [place], [place] [address]Dr. Elba Anthony Erythrocyte distribution width (RBC) [Ratio] 20.0 % Critically high 11.0-15.0 [facility] Comment on above: Performed By: #### C BC ####[facility] Eb[address] [place], [place] [address]Dr. Elba Anthony Hematocrit (Bld) [Volume fraction] 32.7 % Critically low 42.0-54.0 [facility] Comment on above: Performed By: #### C BC ####[facility] [address] [place], [place] [address]Dr. Elba Anthony Hemoglobin (Bld) [Mass/Vol] 9.7 g/dL Critically low 14.0-18.0 [facility] Comment on above: Performed By: #### C BC ####[facility] [address] [place], [place] [address]Dr. Elba Anthony IG # 0.02 10e3/ul Normal 0.00-0.03 [facility] Comment on above: Performed By: #### C BC ####[facility] [address] [place], [place] [address]Dr. Elba Anthony IG % 0.3 % Normal 0.0-0.5 [facility] Comment on above: Performed By: #### C BC ####[facility] [address] [place], [place] [address]Dr. Elba Anthony LYMPH # 0.3 103/ul Critically low 1.2-3.8 [facility] Comment on above: Performed By: #### C BC ####[facility] F[address] [place], [place] [address]Dr. Elba Anthony Lymphocytes/100 WBC (Bld) 4.9 % Critically low 20.5-60.0 [facility] Comment on above: Performed By: #### C BC ####[facility] [address] [place] [address]Dr. Nereydasiobhan Anthony MANUAL DIFF REQ NO Normal [facility] Comment on above: Performed By: #### C BC ####[facility] [address] [place] [address]Dr. Elba Raj MCH (RBC) [Entitic mass] 23.8 pg Critically low 25.9-34.0 [facility] Comment on above: Performed By: #### C BC ####[facility] [address] [place] [address]Dr. Elba Raj MCHC (RBC) [Mass/Vol] 29.7 g/dL Critically low 29.9-35.2 [facility] Comment on above: Performed By: #### C BC ####[facility] [address] [place] [address]Dr. Elba Anthony MCV (RBC) [Entitic vol] 80.3 fL Normal 80.0-94.0 [facility] Comment on above: Performed By: #### C BC ####[facility] [address] [place], [place] [address]Dr. Elba Anthony MONO # 0.6 103/ul Normal 0.3-0.8 [facility] Comment on above: Performed By: #### C BC ####[facility] [address] [place], [place] [address]Dr. Elba Anthony Monocytes/100 WBC (Bld) 9.6 % Normal 1.7-12.0 [facility] Comment on above: Performed By: #### C BC ####[facility] [address] [place], [place] [address]Dr. Elba Anthony NEUT # 5.2 103/ul Normal 1.4-6.5 [facility] Comment on above: Performed By: #### C BC ####[facility] [address] [place], [place] [address]Dr. Elba Anthony Neutrophils/100 WBC (Bld) 81.4 % Critically high 43.0-75.0 [facility] Comment on above: Performed By: #### C BC ####[facility] [address] [place], [place] [address]Tt. Elba Anthony Platelet mean volume (Bld) [Entitic vol] 10.1 fL Normal 9.5-13.5 [facility] Comment on above: Performed By: #### C BC ####[facility] [address] [place], [place] [address]Tv. Elba Anthony PLT 214 103/ul Normal 150-450 [facility] Comment on above: Performed By: #### C BC ####[facility] L[address] [place], [place] [address]Rk. Elba Anthony RBC 4.07 106/ul Critically low 4.70-6.10 [facility] Comment on above: Performed By: #### C BC ####[facility] [address] [place], [place] [address]Os. Elba Anthony WBC 6.4 103/ul Normal 4.0-11.0 [facility] Comment on above: Performed By: #### C BC ####[facility] [address] [place], [place] [address]Ci. Elba Anthony [facility] SARS-CoV-2 (COVID-19) RNA ELIZABETH+probe Ql (Unsp spec) Not detected Normal NOT DETECTED [facility] Comment on above: Result Comment: When diagnostic [...] for this test is supported by the [employer] of Health and Human Service's declaration that [...] be used). Performed By: #### C VDTB ####[facility] [address] [place], [place] [address]Dr. Elba Anthony ER URINE PROFILEon 2 Bilirubin Ql (U) Negative Normal NEGATIVE [facility] Comment on above: Performed By: #### E RUR ####[facility] Mc[address] [place], [place] [address]Dr. Elba Anthony Clarity (U) CLEAR Normal CLEAR [facility] Comment on above: Performed By: #### E RUR ####[facility] Ca[address]ws[address] [place], [place] [address]Dr. Elba Anthony Color (U) LT. YELLOW Normal YELLOW [facility] Comment on above: Performed By: #### E RUR ####[facility] [address] [place], [place] [address]Dr. Elba Anthony ERUAHD A micrscopic examina tion will be performed if indicated. Normal [facility] Comment on above: Performed By: #### E RUR ####[facility] [address] [place], [place] [address]Dr. Yisiobhan Anthony Glucose Ql (U) Negative Normal NEGATIVE [facility] Comment on above: Performed By: #### E RUR ####[facility] Nk[address] [place], [place] [address]Dr. Yilan Anthony Hemoglobin Ql (U) Negative Normal NEGATIVE [facility] Comment on above: Performed By: #### E RUR ####[facility] [address] [place], [place] [address]Dr. Yilan Anthony Ketones Ql (U) Negative Normal NEGATIVE [facility] Comment on above: Performed By: #### E RUR ####[facility] [address] [place], [place] [address]Dr. Yilan Anthony LEUKOCYTES Negative Normal NEGATIVE [facility] Comment on above: Performed By: #### E RUR ####[facility] [address] [place], [place] [address]Dr. Yilan Anthony Nitrite Ql (U) Negative Normal NEGATIVE [facility] Comment on above: Performed By: #### E RUR ####[facility] [address] [place] [address]Dr. Elba Anthony pH (U) 6.0 [pH] Normal 5-[address] [facility] Comment on above: Performed By: #### E RUR ####[facility] [address] [place] [address]Dr. Elba Anthony SPEC GRAVITY 1.010 Normal 1.005-<=1.[address] [facility] Comment on above: Performed By: #### E RUR ####[facility] [address] [place] [address]Dr. Elba Anthony UA PROTEIN Negative Normal NEGATIVE/ TRACE [facility] Comment on above: Performed By: #### E RUR ####[facility] [address] [place], [place] [address]Dr. Elba Anthony UR MICRO IND NOT INDICATED Normal [facility] Comment on above: Performed By: #### E RUR ####[facility] [address] [place], [place] [address]Dr. Elba Anthony Urobilinogen Qn (U) 2.0 {Caden'U}/dL Abnormal 0.2 - 1. [address] [facility] Comment on above: Performed By: #### E RUR ####[facility] [address] [place], [place] [address]Dr. Elba Anthony PROF CHEM 8 (BAS METB)on Anion gap [Moles/Vol] 16.7 mmol/L Normal [facility] Comment on above: Performed By: #### H STROPN, BNP, BMP ####[facility] [address] [place], [place] [address]Dr. Elba Anthony Calcium [Mass/Vol] 9.2 mg/dL Normal 8.5-10.1 [facility] Comment on above: Performed By: #### H STROPN, BNP, BMP ####[facility] [address] [place] [address]Dr. Elba Anthony Chloride [Moles/Vol] 97 mmol/L Critically low 98-107 [facility] Comment on above: Performed By: #### H STROPN, BNP, BMP ####[facility] Zrygodomgs4[address] [place] [address]Dr. Elba Anthony CO2 [Moles/Vol] 26.3 mmol/L Normal 21.0-32.[address] [facility] Comment on above: Performed By: #### H STROPN, BNP, BMP ####[facility] Pigurokhhb7207 [place] [address]Dr. Elba Anthony Creatinine [Mass/Vol] 3.32 mg/dL Critically high 0.70-1.[address] [facility] Comment on above: Performed By: #### H STROPN, BNP, BMP ####[facility] Bmaogjdpfu[address] [place], [place] [address]Dr. Elba Anthony EGFR-AF NIUEAN 22 mL/min/1.73m2 Critically low >=[address] [facility] Comment on above: Performed By: #### H STROPN, BNP, BMP ####[facility] Dfvtfqlpgj[address] [place], [place] [address]Dr. Elba Anthony EGFR-NON AF NIUEAN 18 mL/min/1.73m2 Critically low >=[address] [facility] Comment on above: Performed By: #### H STROPN, BNP, BMP ####[facility] Iyceusyanh[address] [place], [place] [address]Dr. Elba Anthony Glucose [Mass/Vol] 158 mg/dL Critically high 74-106 [facility] Comment on above: Performed By: #### H STROPN, BNP, BMP ####[facility] Gnxxnulnqm3[address] [place], [place] [address]Dr. Elba Anthony Potassium [Moles/Vol] 5.0 mmol/L Normal 3.5-5.[address] [facility] Comment on above: Performed By: #### H STROPN, BNP, BMP ####[facility] Bxkuhczldi99[address] [place] [address]Dr. Elba Anthony Sodium [Moles/Vol] 135 mmol/L Critically low 136-145 [facility] Comment on above: Performed By: #### H STROPN, BNP, BMP ####[facility] Rvkjkdqwdl8033 [place] [id number]. Elba Anthony Urea nitrogen [Mass/Vol] 67.0 mg/dL Critically high 7.0-18.[address] [facility] Comment on above: Performed By: #### H STROPN, BNP, BMP ####[facility] Ichictvbco7484 [place] [id number]. Elba Anthony Urea nitrogen/Creatinine [Mass ratio] 20.2 mg/mg Normal [facility] Comment on above: Performed By: #### H STROPN, BNP, BMP ####[facility] Wnqmyfuxeh9076 [place] [address]Dr. Elba Anthony TROPONIN, HIGH SENSITIVITYon 04-24-2022 HSTROP 36.4 pg/mL Normal 4.0-76.[address] [facility] Comment on above: Result Comment: CUT- OFF POINTS HAVE BEEN ESTABLISHED BASED ON THE FOURTH UNIVERSAL DEFINITIONS OF MYOCARDIALINFARCTION. THE UPPER REFERENCE LIMIT (URL) OF TROPONIN, DEFINED THE 99TH PERCENTILE OFcTnI DISTRIBUTION IN A REFERENCE POPULATION, HAS BEEN CONFIRMED THE DECISION THRESHOLDFOR NM DIAGNOSIS. Performed By: #### H STRODUYEN, BNP, BMP ####[facility] Gzqpqoaggv1834 [place] [address]Dr. Elba Anthony XR CHEST 1 Von 04-24-2022 XR CHEST 1 V Normal [facility] BNPon 04-22-2022 Natriuretic peptide B (Bld) [Mass/Vol] 40845.0 pg/mL Critically high <=900.[address] [facility] Comment on above: Performed By: #### B IT APPLICATIONS DEVELOPER, BMP ####[facility] Vunwpqtdxs9310 [place] [address]Dr. Elba Anthony PROF CHEM 8 (BAS METB)on Anion gap [Moles/Vol] 13.8 mmol/L Normal [facility] Comment on above: Performed By: #### B IT APPLICATIONS DEVELOPER, BMP ####[facility] Vjtnqiwtlx0326 [place] [phone]. Elba Anthony Calcium [Mass/Vol] 8.7 mg/dL Normal 8.5-10.[address] [facility] Comment on above: Performed By: #### B IT APPLICATIONS DEVELOPER, BMP ####[facility] Ebvtbinmab3807 [place] [address]Dr. Elba Anthony Chloride [Moles/Vol] 98 mmol/L Normal 98-[address] [facility] Comment on above: Performed By: #### B IT APPLICATIONS DEVELOPER, BMP ####[facility] Drhfttlhhd9151 [place] [address]Dr. Elba Anthony CO2 [Moles/Vol] 29.1 mmol/L Normal 21.0-32.[address] [facility] Comment on above: Performed By: #### B IT APPLICATIONS DEVELOPER, BMP ####[facility] Ytdhthkooo[address] [place], [place] [address]Dr. Elba Anthony Creatinine [Mass/Vol] 2.89 mg/dL Critically high 0.70-1.[address] [facility] Comment on above: Performed By: #### B IT APPLICATIONS DEVELOPER, BMP ####[facility] Rcyckcdgbm8466[address] [place], [place] [address]Dr. Elba Anthony EGFR-AF NIUEAN 26 mL/min/1.73m2 Critically low >=[address] [facility] Comment on above: Performed By: #### B IT APPLICATIONS DEVELOPER, BMP ####[facility] Kcbstwlwfo639[address] [place], [place] [address]Dr. Elba Anthony EGFR-NON AF NIUEAN 22 mL/min/1.73m2 Critically low >=[address] [facility] Comment on above: Performed By: #### B IT APPLICATIONS DEVELOPER, BMP ####[facility] Pzczkzepho020[address] [place], [place] [address]Dr. Elba Anthony Glucose [Mass/Vol] 108 mg/dL Critically high 74-106 [facility] Comment on above: Performed By: #### B IT APPLICATIONS DEVELOPER, BMP ####[facility] Svkyebjvlx15[address] [place], [place] [address]Dr. Elba Anthony Potassium [Moles/Vol] 4.9 mmol/L Normal 3.5-5.[address] [facility] Comment on above: Performed By: #### B IT APPLICATIONS DEVELOPER, BMP ####[facility] Ywhbimyoqc7767[address] [place], [place] [address]Dr. Elba Anthony Sodium [Moles/Vol] 136 mmol/L Normal 136-[address] [facility] Comment on above: Performed By: #### B IT APPLICATIONS DEVELOPER, BMP ####[facility] Jojjltnhjv92[address] [place], [place] [address]Dr. Elba Anthony Urea nitrogen [Mass/Vol] 63.0 mg/dL Critically high 7.0-18.[address] [facility] Comment on above: Performed By: #### B IT APPLICATIONS DEVELOPER, BMP ####[facility] Mstrxswbab[address] [place], [place] [address]Dr. Elba Anthony Urea nitrogen/Creatinine [Mass ratio] 21.8 mg/mg Normal [facility] Comment on above: Performed By: #### B IT APPLICATIONS DEVELOPER, BMP ####[facility] Ruzzkobumm4940[address] [place], [place] [address]Dr. Elba Anthony BNPon 04-15-2022 Natriuretic peptide B (Bld) [Mass/Vol] 09251.0 pg/mL Critically high <=900.[address] [facility] Comment on above: Result Comment: repe ated Performed By: #### B IT APPLICATIONS DEVELOPER, BMP ####[facility] Turwfqczqy529[address] [place], [place] [address]Dr. Elba Anthony PROF CHEM 8 (BAS METB)on Anion gap [Moles/Vol] 16.8 mmol/L Normal [facility] Comment on above: Performed By: #### B IT APPLICATIONS DEVELOPER, BMP ####[facility] Dmufspxrha4829[address] [place], [place] [address]Dr. Elba Anthony Calcium [Mass/Vol] 8.4 mg/dL Critically low 8.5-10.1 [facility] Comment on above: Performed By: #### B IT APPLICATIONS DEVELOPER, BMP ####[facility] Jubwgkopts7584[address] [place], [place] [address]Dr. Elba Anthony Chloride [Moles/Vol] 96 mmol/L Critically low 98-[address] [facility] Comment on above: Performed By: #### B IT APPLICATIONS DEVELOPER, BMP ####[facility] Pnspdupvjt0117[address] [place], [place] [address]Dr. Elba Anthony CO2 [Moles/Vol] 26.9 mmol/L Normal 21.0-32.[address] [facility] Comment on above: Performed By: #### B IT APPLICATIONS DEVELOPER, BMP ####[facility] Vdgzeakqbv5076 [place] [address]Dr. Elba Anthony Creatinine [Mass/Vol] 2.83 mg/dL Critically high 0.70-1.[address] [facility] Comment on above: Performed By: #### B IT APPLICATIONS DEVELOPER, BMP ####[facility] Authrryocq1918[address] [place], [place] [address]Dr. Elba Anthony EGFR-AF NIUEAN 27 mL/min/1.73m2 Critically low >=[address] [facility] Comment on above: Performed By: #### B IT APPLICATIONS DEVELOPER, BMP ####[facility] Dsimlswjcd2857[address] [place], [place] [address]Dr. Elba Anthony EGFR-NON AF NIUEAN 22 mL/min/1.73m2 Critically low >=[address] [facility] Comment on above: Performed By: #### B IT APPLICATIONS DEVELOPER, BMP ####[facility] Eudeegglxo[address] [place], [place] [address]Dr. Elba Anthony Glucose [Mass/Vol] 118 mg/dL Critically high 74-106 [facility] Comment on above: Performed By: #### B IT APPLICATIONS DEVELOPER, BMP ####[facility] Ynsagaihsa107[address] [place], [place] [address]Dr. Elba Anthony Potassium [Moles/Vol] 4.7 mmol/L Normal 3.5-5.[address] [facility] Comment on above: Performed By: #### B IT APPLICATIONS DEVELOPER, BMP ####[facility] Wpjvuxsuhx75[address] [place], [place] [address]Dr. Elba Anthony Sodium [Moles/Vol] 135 mmol/L Critically low 136-145 [facility] Comment on above: Performed By: #### B IT APPLICATIONS DEVELOPER, BMP ####[facility] Acizkvjdbh7360[address] [place], [place] [address]Dr. Elba Anthony Urea nitrogen [Mass/Vol] 68.0 mg/dL Critically high 7.0-18.[address] [facility] Comment on above: Performed By: #### B IT APPLICATIONS DEVELOPER, BMP ####[facility] Inlyprppbl8299[address] [place], [place] [address]Dr. Elba Raj Urea nitrogen/Creatinine [Mass ratio] 24.0 mg/mg Normal [facility] Comment on above: Performed By: #### B IT APPLICATIONS DEVELOPER, BMP ####[facility] Etsavxrnnu939[address] [place], [place] [address]Dr. Elba Anthony BNPon 04-02-2022 Natriuretic peptide B (Bld) [Mass/Vol] 98025.0 pg/mL Critically high <=900.0 [facility] Comment on above: Performed By: #### B IT APPLICATIONS DEVELOPER, BMP ####[facility] Zdkczjtqgc3217[address] [place], [place] [address]Dr. Elba Anthony PROF CHEM 8 (BAS METB)on Anion gap [Moles/Vol] 9.7 mmol/L Normal [facility] Comment on above: Performed By: #### B IT APPLICATIONS DEVELOPER, BMP ####[facility] Zknhljwgid15[address] [place], [place] [address]Dr. Elba Anthony Calcium [Mass/Vol] 8.8 mg/dL Normal 8.5-10.1 [facility] Comment on above: Performed By: #### B IT APPLICATIONS DEVELOPER, BMP ####[facility] Djzhevqdmc[address] [place], [place] [address]Dr. Elba Anthony Chloride [Moles/Vol] 99 mmol/L Normal 98-107 [facility] Comment on above: Performed By: #### B IT APPLICATIONS DEVELOPER, BMP ####[facility] Ujoybwrguu[address] [place], [place] [address]Dr. Elba Anthony CO2 [Moles/Vol] 31.1 mmol/L Normal 21.0-32.0 [facility] Comment on above: Performed By: #### B IT APPLICATIONS DEVELOPER, BMP ####[facility] Ogaqbygxwp[address] [place], [place] [address]Dr. Elba Anthony Creatinine [Mass/Vol] 2.45 mg/dL Critically high 0.70-1.30 [facility] Comment on above: Performed By: #### B IT APPLICATIONS DEVELOPER, BMP ####[facility] Exkkyhixdq9189[address] [place], [place] [address]Dr. Elba Anthony EGFR-AF NIUEAN 32 mL/min/1.73m2 Critically low >=60 [facility] Comment on above: Performed By: #### B IT APPLICATIONS DEVELOPER, BMP ####[facility] Nqcjjkliae8832 [place] [id number]. Elba Raj EGFR-NON AF NIUEAN 26 mL/min/1.73m2 Critically low >=60 [facility] Comment on above: Performed By: #### B IT APPLICATIONS DEVELOPER, BMP ####[facility] Cqjsqanhbo9146 [place] [address]Dr. Elba Anthony Glucose [Mass/Vol] 101 mg/dL Normal 74-106 [facility] Comment on above: Performed By: #### B IT APPLICATIONS DEVELOPER, BMP ####[facility] Yhxmmndjzg5170 [place] [address]Dr. Elba Anthony Potassium [Moles/Vol] 3.8 mmol/L Normal 3.5-5.[address] [facility] Comment on above: Performed By: #### B IT APPLICATIONS DEVELOPER, BMP ####[facility] Twykycqojt98[address] [place], [place] [address]Dr. Elba Anthony Sodium [Moles/Vol] 136 mmol/L Normal 136-145 [facility] Comment on above: Performed By: #### B IT APPLICATIONS DEVELOPER, BMP ####[facility] Kieqwkmwtp17[address] [place], [place] [address]Dr. Elba Anthony Urea nitrogen [Mass/Vol] 46.0 mg/dL Critically high 7.0-18.[address] [facility] Comment on above: Performed By: #### B IT APPLICATIONS DEVELOPER, BMP ####[facility] Mksrfpxfux[address] [place], [place] [address]Dr. Elba Anthony Urea nitrogen/Creatinine [Mass ratio] 18.8 mg/mg Normal [facility] Comment on above: Performed By: #### B IT APPLICATIONS DEVELOPER, BMP ####[facility] Dgmtrfziuw1252 [place] [address]Dr. Elba Anthony CBC W MANUAL DIFFon 04-01- 22 ANISOCYTOSIS 1+ Normal [facility] Comment on above: Performed By: #### C BCMAN ####[facility] Swsecpzdpa8[address] [place] [address]Dr. Elba Anthony ATYPICAL LYMPH # 0.00 103/ul Normal [facility] Comment on above: Performed By: #### C ADALGISA ####[facility] Tstlerbtcy8753 [place] [id number]. Yilan Anthony ATYPICAL LYMPH % 0 % Normal [facility] Comment on above: Performed By: #### C ADALGISA ####[facility] Oqrfsdmtut5142 [place] [id number]. Yilan Anthony BAND # 0.4 103/ul Critically high 0.0-0.3 [facility] Comment on above: Performed By: #### C ADALGISA ####[facility] Zawengximk8623 [place] [address]Dr. Yilan Anthony BAND % 4 % Normal 0-5 [facility] Comment on above: Performed By: #### C ADALGISA ####[facility] Hakkmxnpba7170 [place] [address]Dr. Yisiobhan Anthony BASOM # 0.00 103/ul Normal 0.00-0.10 [facility] Comment on above: Performed By: #### C ADALGISA ####[facility] Hhfcvdgjic9530 [place] [address]Dr. Yisiobhan Anthony BASOM % 0.0 % Critically low 0.2-2.0 [facility] Comment on above: Performed By: #### C ADALGISA ####[facility] Njsijgsrva8074 [place] [address]Dr. Yisiobhan Anthony BLAST # 0.0 103/ul Normal [facility] Comment on above: Performed By: #### C ADALGISA ####[facility] Zagypsihoq4446 [place] [address]Dr. Yilan Anthony BLAST % 0 % Normal [facility] Comment on above: Performed By: #### C ADALGISA ####[facility] Ajtyhdsatk5059 [place] [address]Dr. Yilan Anthony CORRECTED WBC Normal 4.0-11.0 [facility] Comment on above: Performed By: #### C ADALGISA ####[facility] Eejbvcxfya1142 [place] [address]Dr. Yilan Anthony EOS # 0.00 103/ul Normal 0.00-0.70 [facility] Comment on above: Performed By: #### C BCVINCENT ####[facility] Mpuwouncqj8608 [place] [id number]. Elba Anthony EOS% 0.0 % Critically low 0.9-7.0 [facility] Comment on above: Performed By: #### C ADALGISA ####[facility] Zoyptpcteb3311 [place] [id number]. Elba Anthony HCT 31.3 % Critically low 42.0-54.0 [facility] Comment on above: Performed By: #### C ADALGISA ####[facility] Qivetcoogs8997 [place] [phone]. Elba Anthony HGB 9.2 g/dl Critically low 14.0-18.0 [facility] Comment on above: Performed By: #### C ADALGISA ####[facility] Zsxgjcqtzg0428 [place] [address]Dr. Elba Anthony HYPOCHROMASIA SLIGHT Normal [facility] Comment on above: Performed By: #### C ADALGISA ####[facility] Pvkhjkbosh5501 [place] [phone]. Elba Anthony LYMPHM # 0.32 103/ul Critically low 1.20-3.80 [facility] Comment on above: Performed By: #### C ADALGISA ####[facility] Ilxjoomgvl4694 [place] [phone]. Elba Anthony LYMPHM% 3.0 % Critically low 20.5-60.0 [facility] Comment on above: Performed By: #### C ADALGISA ####[facility] Qbiqixndph3465 [place] [phone]. Elba Anthony MCH 23.2 pg Critically low 25.9-34.0 [facility] Comment on above: Performed By: #### C ADALGISA ####[facility] Cxfjdqcqso1422 [place] [id number]. Elba Anthony MCHC 29.4 g/dl Critically low 29.9-35.2 [facility] Comment on above: Performed By: #### C ADALGISA ####[facility] Ohfabggpap6517 [place] [phone]. Elba Anthony MCV 79.0 fL Critically low 80.0-94.0 [facility] Comment on above: Performed By: #### C ADALGISA ####[facility] Zryysztest3061 [place] [phone]. Elba Anthony METAMYELOCYTE # 0.1 103/ul Normal [facility] Comment on above: Performed By: #### C ADALGISA ####[facility] Alrxhroben8860 [place] [phone]. Elba Anthony METAMYELOCYTE % 1 % Normal [facility] Comment on above: Performed By: #### C ADALGISA ####[facility] Uwmtqdxtsv[address] [place], [place] [address]Dr. Elba Anthony MICROCYTOSIS SLIGHT Normal [facility] Comment on above: Performed By: #### C ADALGISA ####[facility] Ggsxutteho3706 [place] [address]Dr. Elba Anthony MONOM# 0.32 103/ul Normal 0.30-0.80 [facility] Comment on above: Performed By: #### C ADALGISA ####[facility] Ipyuofekyg[address] [place], [place] [address]Dr. Elba Anthony MONOM% 3.0 % Normal 1.7-12.0 [facility] Comment on above: Performed By: #### C ADALGISA ####[facility] Qqglclmsvy0373 [place] [address]Dr. Elba Anthony MPV 9.9 fL Normal 9.5-13.5 [facility] Comment on above: Performed By: #### C ADALGISA ####[facility] Euafuxurou9832 [place] [address]Dr. Elba Anthony MYELOCYTE # 0.0 103/ul Normal [facility] Comment on above: Performed By: #### C ADALGISA ####[facility] Moyvfltdjv1546 [place] [address]Dr. Elba Anthony MYELOCYTE % 0 % Normal [facility] Comment on above: Performed By: #### C ADALGISA ####[facility] Kvtitetzsc9897 [place], [place] [address]Zk. Elba Anthony NRBC 0 Normal [facility] Comment on above: Performed By: #### C ADALGISA ####[facility] Pvrsujhath2692 [place], [place] [address]Mq. Elba Anthony PLT 167 103/ul Normal 150-450 [facility] Comment on above: Performed By: #### C ADALGISA ####[facility] Dozydfhiak4847 [place] [phone]. Elba Anthony RBC 3.96 106/ul Critically low 4.70-6.10 [facility] Comment on above: Performed By: #### C ADALGISA ####[facility] Zwsbclkhxv6943 [place] [phone]. Elba Anthony RDW 19.8 % Critically high 11.0-15.[address] [facility] Comment on above: Performed By: #### C ADALGISA ####[facility] Dyqnsnmbtf7398 [place] [phone]. Elba Anthony SEG # 9.52 103/ul Critically high 1.40-6.[address] [facility] Comment on above: Performed By: #### Abdoul DIANA ####[facility] Vlqhsttjwq2230 [place] [phone]. Elba Anthony SEG % 89.0 % Critically high 43.0-75.[address] [facility] Comment on above: Performed By: #### C ADALGISA ####[facility] Cwktnbniow6231 [place] [phone]. Elba Anthony WBC 10.7 103/ul Normal 4.0-11.0 [facility] Comment on above: Performed By: #### C ADALGISA ####[facility] Mhrmsooxxj7510 [place] [phone]. Elba Anthony CT CSPINE WO CONon CT CSPINE WO CON Normal [facility] CT HEAD WO CONon 04-01-2022 CT HEAD WO CON Normal [facility] PROF 14(COMP METB)on 022 Albumin [Mass/Vol] 2.8 g/dL Critically low 3.4-5.0 Th e [facility] Comment on above: Performed By: #### C MP ####[facility] Xxfdgxycqe1816 [place] [address]Dr. Elba Raj Albumin/Globulin [Mass ratio] 0.6 {ratio} Normal [facility] Comment on above: Performed By: #### C MP ####[facility] Qtgjnuusno3971 [place] [address]Dr. Elba Raj ALP [Catalytic activity/Vol] 81 U/L Normal 46-[address] [facility] Comment on above: Performed By: #### C MP ####[facility] Fbuoecgukk[address] [place], [place] [address]Dr. Elba Raj ALT [Catalytic activity/Vol] 15 U/L Critically low 16-[address] [facility] Comment on above: Performed By: #### C MP ####[facility] Jmtaitqlmb13[address] [place], [place] [address]Dr. Nereydasiobhan Raj Anion gap [Moles/Vol] 9.2 mmol/L Normal [facility] Comment on above: Performed By: #### C MP ####[facility] Zilacxotqb5[address] [place], [place] [address]Dr. Elba Raj AST [Catalytic activity/Vol] 21 U/L Normal 15-[address] [facility] Comment on above: Performed By: #### C MP ####[facility] Alsheounev[address] [place], [place] [address]Dr. Nereydasiobhan Raj Bilirubin [Mass/Vol] 1.7 mg/dL Critically high 0.2-1.0 [facility] Comment on above: Performed By: #### C MP ####[facility] Cwfvlsdaqb3[address] [place], [place] [address]Dr. Nereydasiobhan Raj Calcium [Mass/Vol] 9.0 mg/dL Normal 8.5-10.1 [facility] Comment on above: Performed By: #### C MP ####[facility] Cpflffbupo9[address] [place], [place] [address]Dr. Elba Anthony Chloride [Moles/Vol] 99 mmol/L Normal 98-107 [facility] Comment on above: Performed By: #### C MP ####[facility] Rdhnhxgceb1194 [place] [phone]. Elba Anthony CO2 [Moles/Vol] 30.7 mmol/L Normal 21.0-32.[address] [facility] Comment on above: Performed By: #### C MP ####[facility] Ygkrxzpfdm9850 [place] [phone]. Elba Anthony Creatinine [Mass/Vol] 2.60 mg/dL Critically high 0.70-1.[address] [facility] Comment on above: Performed By: #### C MP ####[facility] Dytlhrmokx7463 [place] [id number]. Elba Anthony EGFR-AF NIUEAN 30 mL/min/1.73m2 Critically low >=[address] [facility] Comment on above: Performed By: #### C MP ####[facility] Ynmszrfjjl1256 [place] [address]Dr. Elba Anthony EGFR-NON AF NIUEAN 25 mL/min/1.73m2 Critically low >=60 [facility] Comment on above: Performed By: #### C MP ####[facility] Hhyrgdwkuf2455 [place] [address]Dr. Elba Anthony Globulin (S) [Mass/Vol] 4.4 g/dL Normal [facility] Comment on above: Performed By: #### C MP ####[facility] Adwiadjkkj2574 [place] [address]Dr. Elba Anthony Glucose [Mass/Vol] 130 mg/dL Critically high 74-106 [facility] Comment on above: Performed By: #### C MP ####[facility] Nyholtutpc0993 [place] [phone]. Elba Anthony Potassium [Moles/Vol] 3.9 mmol/L Normal 3.5-5.1 [facility] Comment on above: Performed By: #### C MP ####[facility] Fibflzvbfb3171 [place] [phone]. Elba Anthony Protein [Mass/Vol] 7.2 g/dL Normal 6.4-8.2 [facility] System Comment on above: Performed By: #### C MP ####[facility] Vnpohbwkrl[address] [place] [address]Dr. Elba Anthony Sodium [Moles/Vol] 135 mmol/L Critically low 136-145 Th e [facility] Comment on above: Performed By: #### C MP ####[facility] Cnzxdnqoss8[address] [place] [address]Dr. Elba Anthony Urea nitrogen [Mass/Vol] 41.0 mg/dL Critically high 7.0-18.0 [facility] Comment on above: Performed By: #### C MP ####[facility] Ipqideiuxi07[address] [place], [place] [address]Dr. Elba Anthony Urea nitrogen/Creatinine [Mass ratio] 15.8 mg/mg Normal [facility] Comment on above: Performed By: #### C MP ####[facility] Cbgnsdufmm500[address] [place], [place] [address]Dr. Elba Anthony XR CHEST 1 Von 04-01-2022 XR CHEST 1 V Normal [facility] BNPon 01-07-2022 Natriuretic peptide B (Bld) [Mass/Vol] 9964.0 pg/mL Critically high <=900.0 [facility] Comment on above: Performed By: #### C MP, BNP ####[facility] Isilxnoocz30[address] [place], [place] [address]Dr. Elba Anthony CBC W MANUAL DIFFon 01-08-20 22 ATYPICAL LYMPH # Normal [facility] Comment on above: Performed By: #### C BCMAN ####[facility] Kubsvkbuhg12[address] [place], [place] [address]Dr. Elba Anthony ATYPICAL LYMPH % Normal [facility] Comment on above: Performed By: #### C BCMAN ####[facility] Yzrwgoqujl878[address] [place], [place] [address]Dr. Elba Anthony BAND # 0.1 103/ul Normal 0.0-0.3 [facility] Comment on above: Performed By: #### C ADALGISA ####[facility] Kjsnqqygnt09[address] [place], [place] [address]Dr. Elba Anthony BAND % 1 % Normal 0-5 [facility] Comment on above: Performed By: #### C BCMAN ####[facility] Fkcyqlwvzt01[address] [place] [address]Dr. Elba Anthony BASOM # 0.00 103/ul Normal 0.00-0.10 [facility] Comment on above: Performed By: #### C BCMAN ####[facility] Kvxxegcbej8073 [place] [address]Dr. Elba Anthony BASOM % 0.0 % Critically low 0.2-2.0 [facility] Comment on above: Performed By: #### C BCMAN ####[facility] Lscyuejdes9[address] [place], [place] [address]Dr. Elba Anthony BLAST # Normal [facility] Comment on above: Performed By: #### C ADALGISA ####[facility] Twoacyaumt675[address] [place], [place] [address]Dr. Elba Anthony BLAST % Normal [facility] Comment on above: Performed By: #### C BCVINECNT ####[facility] Ghqupccgbm5270[address] [place], [place] [address]Dr. Elba Anthony CORRECTED WBC Normal 4.0-11.0 [facility] Comment on above: Performed By: #### C ADALGISA ####[facility] Jodmbytwmz7767[address] [place], [place] [address]Dr. Elba Anthony EOS # 0.07 103/ul Normal 0.00-0.70 [facility] Comment on above: Performed By: #### C BCVINCENT ####[facility] Ijrazxcpgr1333[address] [place], [place] [address]Dr. Elba Anthony EOS% 1.0 % Normal 0.9-7.0 [facility] Comment on above: Performed By: #### C ADALGISA ####[facility] Hfstsbkrfe8657[address] [place], [place] [address]Dr. Elba Anthony HCT 33.4 % Critically low 42.0-54.0 [facility] Comment on above: Performed By: #### C ADALGISA ####[facility] Ooxolmqbct6156[address] [place], [place] [address]Dr. Elba Anthony HGB 9.8 g/dl Critically low 14.0-18.[address] [facility] Comment on above: Performed By: #### Abdoul DIANA ####[facility] Zicjcgxzhc8[address] [place] [id number]. Elba Anthony LYMPHM # 0.44 103/ul Critically low 1.20-3.[address] [facility] Comment on above: Performed By: #### Abdoul DIANA ####[facility] Lzmruyhxxh4195 [place] [id number]. Elba Anthony LYMPHM% 6.0 % Critically low 20.5-60.[address] [facility] Comment on above: Performed By: #### Abdoul DIANA ####[facility] Hsiykgapnv3014 [place] [address]Dr. Elba Anthony MCH 24.1 pg Critically low 25.9-34.[address] [facility] Comment on above: Performed By: #### Abdoul DIANA ####[facility] Ggomwonwxm5420 [place] [address]Dr. Elba Anthony MCHC 29.3 g/dl Critically low 29.9-35.[address] [facility] Comment on above: Performed By: #### Abdoul DIANA ####[facility] Clzwhaprse78[address] [place] [address]Dr. Elba Anthony MCV 82.1 fL Normal 80.0-94.[address] [facility] Comment on above: Performed By: #### Abdoul DIANA ####[facility] Oyjskujejw6443 [place] [address]Dr. Elba Anthony METAMYELOCYTE # Normal [facility] Comment on above: Performed By: #### Abdoul DIANA ####[facility] Wlwedutavi3744 [place] [address]Dr. Elba Anthony METAMYELOCYTE % Normal [facility] Comment on above: Performed By: #### Abdoul DIANA ####[facility] Teleftlhns4569 [place] [address]Dr. Elba Anthony MONOM# 0.52 103/ul Normal 0.30-0.80 [facility] Comment on above: Performed By: #### C ADALGISA ####[facility] Wyrgvodupx6569 [place], [place] [address]Go. Elba Anthony MONOM% 7.0 % Normal 1.7-12.[address] [facility] Comment on above: Performed By: #### C ADALGISA ####[facility] Lqiggeatxt7712 [place], [place] [address]Mq. Elba Atnhony MPV 9.5 fL Normal 9.5-13.5 [facility] Comment on above: Performed By: #### C ADALGISA ####[facility] Gcmxpbpgjv2787 [place] [phone]. Elba Anthony MYELOCYTE # Normal [facility] Comment on above: Performed By: #### C ADALGISA ####[facility] Mybixiqudm1055 [place] [phone]. Elba Anthony MYELOCYTE % Normal [facility] Comment on above: Performed By: #### C ADALGISA ####[facility] Nnumenziei8143 [place] [phone]. Elba Anthony NRBC Normal [facility] Comment on above: Performed By: #### C ADALGISA ####[facility] Ebyuqgsveb4437 [place] [id number]. Elba Anthony PLT 247 103/ul Normal 150-450 [facility] Comment on above: Performed By: #### C ADALGISA ####[facility] Ikjjckgxks6131 [place] [phone]. Elba Anthony RBC 4.07 106/ul Critically low 4.70-6.10 [facility] Comment on above: Performed By: #### C ADALGISA ####[facility] Jfguzhtffj1944 [place] [phone]. Elba Anthony RDW 18.7 % Critically high 11.0-15.0 [facility] Comment on above: Performed By: #### C ADALGISA ####[facility] Hgbbowdttm7514 [place] [phone]. Nereydasiobhan Anthony SEG # 6.29 103/ul Normal 1.40-6.50 [facility] Comment on above: Performed By: #### C ADALGISA ####[facility] Odhnxtcbdz807[address] [place], [place] [address]Dr. Elba Anthony SEG % 85.0 % Critically high 43.0-75.[address] [facility] Comment on above: Performed By: #### C ADALGISA ####[facility] Rjjulzuhki9490[address] [place], [place] [address]Dr. Elba Anthony WBC 7.4 103/ul Normal 4.0-11.[address] [facility] Comment on above: Performed By: #### C ADALGISA ####[facility] Jxlhuthpua7906[address] [place], [place] [address]Dr. Elba Anthony ER URINE PROFILEon 2 Bilirubin Ql (U) Negative Normal NEGATIVE [facility] Comment on above: Performed By: #### E RUR ####[facility] Dadidatkxt6639[address] [place], [place] [address]Dr. Elba Anthony Clarity (U) CLEAR Normal CLEAR [facility] Comment on above: Performed By: #### E RUR ####[facility] Qijuxjtlca1374[address] [place], [place] [address]Dr. Elba Anthony Color (U) LT. YELLOW Normal YELLOW [facility] Comment on above: Performed By: #### E RUR ####[facility] Kdxollnbga9390[address] [place], [place] [address]Dr. Elba Anthony ERUAHD A micrscopic examina tion will be performed if indicated. Normal [facility] Comment on above: Performed By: #### E RUR ####[facility] Cohlumqrqa2369[address] [place], [place] [address]Dr. Elba Anthony Glucose Ql (U) Negative Normal NEGATIVE [facility] Comment on above: Performed By: #### E RUR ####[facility] Hbgnfxemzp2674[address] [place], [place] [address]Dr. Elba Anthony Hemoglobin Ql (U) Negative Normal NEGATIVE [facility] Comment on above: Performed By: #### E RUR ####[facility] Dcnkitzscb035[address] [place], [place] [address]Dr. Elba Anthony Ketones Ql (U) Negative Normal NEGATIVE [facility] Comment on above: Performed By: #### E RUR ####[facility] Ujykleilet5031 [place] [address]Dr. Elba Anthony LEUKOCYTES Negative Normal NEGATIVE [facility] Comment on above: Performed By: #### E RUR ####[facility] Efnmfdctgm1665 [place] [address]Dr. Nereydasiobhan Anthony Nitrite Ql (U) Negative Normal NEGATIVE [facility] Comment on above: Performed By: #### E RUR ####[facility] Ompqwkiren9568[address] [place], [place] [address]Dr. Nereydasiobhan Anthony pH (U) 5.0 [pH] Normal 5-[address] [facility] Comment on above: Performed By: #### E RUR ####[facility] Xjdamqkzlx2733[address] [place], [place] [address]Dr. Elba Anthony SPEC GRAVITY <=1.005 Abnormal 1.005-<=1.[address] [facility] Comment on above: Performed By: #### E RUR ####[facility] Tvnjopqzij913[address] [place], [place] [address]Dr. Elba Anthony UA PROTEIN Negative Normal NEGATIVE/ TRACE [facility] Comment on above: Performed By: #### E RUR ####[facility] Nktqpgxtrg2620[address] [place], [place] [address]Dr. Nereydasiobhan Anthony UR MICRO IND NOT INDICATED Normal [facility] Comment on above: Performed By: #### E RUR ####[facility] Dhhdpuaxhu8229[address] [place], [place] [address]Dr. Nereydasiobhan Anthony Urobilinogen Qn (U) 0.2 {Caden'U}/dL Normal 0.2 - 1. [address] [facility] Comment on above: Performed By: #### E RUR ####[facility] Qokeqmmprn7195[address] [place], [place] [address]Dr. Elba Anthony PROF 14(COMP METB)on 022 Albumin [Mass/Vol] 2.9 g/dL Critically low 3.4-5.0 [facility] Comment on above: Performed By: #### C MP, BNP ####[facility] Ypngnlclbz6370 [place] [phone]. Elba Anthony Albumin/Globulin [Mass ratio] 0.6 {ratio} Normal [facility] Comment on above: Performed By: #### C MP, BNP ####[facility] Wpcwjgtxtn9747 [place] [phone]. Elba Raj ALP [Catalytic activity/Vol] 105 U/L Normal 46-[address] [facility] Comment on above: Performed By: #### C MP, BNP ####[facility] Sczrryswwz1674 [place] [phone]. Elba Raj ALT [Catalytic activity/Vol] 27 U/L Normal 16-[address] [facility] Comment on above: Performed By: #### C MP, BNP ####[facility] Lapgpmrnoh3468 [place] [phone]. Nereydasiobhan Anthony Anion gap [Moles/Vol] 10.7 mmol/L Normal [facility] Comment on above: Performed By: #### C MP, BNP ####[facility] Wipucjznya2959 [place] [phone]. Nereydasiobhan Anthony AST [Catalytic activity/Vol] 20 U/L Normal 15-[address] [facility] Comment on above: Performed By: #### C MP, BNP ####[facility] Irwocpmbdc9572 [place] [phone]. Nereydasiobhan Anthony Bilirubin [Mass/Vol] 1.1 mg/dL Critically high 0.2-1.[address] [facility] Comment on above: Performed By: #### C MP, BNP ####[facility] Rgxqeazpyq1906 [place] [phone]. Neredyasiobhan Anthony Calcium [Mass/Vol] 8.2 mg/dL Critically low 8.5-10.1 [facility] Comment on above: Performed By: #### C MP, BNP ####[facility] Mqyqvkbfqd7465 [place] [phone]. Elba Anthony Chloride [Moles/Vol] 99 mmol/L Normal 98-[address] [facility] Comment on above: Performed By: #### C MP, BNP ####[facility] Pcngdzlrdw7419 [place] [phone]. Elba Anthony CO2 [Moles/Vol] 28.6 mmol/L Normal 21.0-32.[address] [facility] Comment on above: Performed By: #### C MP, BNP ####[facility] Fiuniccjqd8016[address] [place], [place] [address]Dr. Elba Anthony Creatinine [Mass/Vol] 2.06 mg/dL Critically high 0.70-1.[address] [facility] Comment on above: Performed By: #### C MP, BNP ####[facility] Tvcfvtfntm034[address] [place], [place] [address]Dr. Elba Anthony EGFR-AF NIUEAN 39 mL/min/1.73m2 Critically low >=[address] [facility] Comment on above: Performed By: #### C MP, BNP ####[facility] Ehuzxtccsb282[address] [place], [place] [address]Dr. Elba Anthony EGFR-NON AF NIUEAN 32 mL/min/1.73m2 Critically low >=60 [facility] Comment on above: Performed By: #### C MP, BNP ####[facility] Fdgputedcc0655[address] [place], [place] [address]Dr. Elba Anthony Globulin (S) [Mass/Vol] 4.6 g/dL Normal [facility] Comment on above: Performed By: #### C MP, BNP ####[facility] Xcvdczifyd9270[address] [place], [place] [address]Dr. Elba Anthony Glucose [Mass/Vol] 113 mg/dL Critically high 74-106 [facility] Comment on above: Performed By: #### C MP, BNP ####[facility] Wpivdxxova116[address] [place], [place] [address]Dr. Elba Anthony Potassium [Moles/Vol] 4.3 mmol/L Normal 3.5-5.1 [facility] Comment on above: Performed By: #### C MP, BNP ####[facility] Arbavlgloe6466[address] [place], [place] [address]Dr. Elba Anthony Protein [Mass/Vol] 7.5 g/dL Normal 6.1-8.2 [facility] Comment on above: Performed By: #### C MP, BNP ####[facility] Ekcdvzgtfg7117 [place] [address]Dr. Elba Anthony Sodium [Moles/Vol] 134 mmol/L Critically low 136-145 Th e [facility] Comment on above: Performed By: #### C MP, BNP ####[facility] Rwxrulnedk7173 [place] [address]Dr. Elba Anthony Urea nitrogen [Mass/Vol] 48.0 mg/dL Critically high 7.0-18.[address] [facility] Comment on above: Performed By: #### C MP, BNP ####[facility] Aptjettqfv5566[address] [place], [place] [address]Dr. Elba Anthony Urea nitrogen/Creatinine [Mass ratio] 23.3 mg/mg Normal [facility] Comment on above: Performed By: #### C MP, BNP ####[facility] Adifsenhwr9184[address] [place], [place] [address]Dr. Elba Anthony US ARLIN DOP LEG LTon 01-08-20 22 US ARLIN DOP LEG LT Normal [facility] XR CHEST 1 Von 01-07-2022 XR CHEST 1 V Normal [facility] CBC AUTO DIFFon 12-17-2021 BASO # 0.0 103/ul Normal 0.0-0.[address] [facility] Comment on above: Performed By: #### C BC ####[facility] Safqvdtfvb5385[address] [place], [place] [address]Dr. Elba Anthony Basophils/100 WBC (Bld) 0.1 % Critically low 0.2-2.0 [facility] Comment on above: Performed By: #### C BC ####[facility] Gtidrfsvqn3768[address] [place], [place] [address]Dr. Elba Anthony EO # 0.1 103/ul Normal 0.0-0.7 [facility] Comment on above: Performed By: #### C BC ####[facility] Afvjcnimjq1783 [place] [address]Dr. Elba Anthony Eosinophils/100 WBC (Bld) 1.2 % Normal 0.9-7.0 [facility] Comment on above: Performed By: #### C BC ####[facility] Qgvuquzdjf9046 [place] [address]Dr. Elba Anthony Erythrocyte distribution width (RBC) [Ratio] 18.6 % Critically high 11.0-15.[address] [facility] Comment on above: Performed By: #### C BC ####[facility] Zyusfvrwgv199[address] [place], [place] [address]DrLatoya Dawnsiobhan Anthony Hematocrit (Bld) [Volume fraction] 29.8 % Critically low 42.0-54.[address] [facility] Comment on above: Performed By: #### C BC ####[facility] Ldxyqoetrx9413[address] [place], [place] [address]DrLatoya Nereydasiobhan Anthony Hemoglobin (Bld) [Mass/Vol] 9.0 g/dL Critically low 14.0-18.[address] [facility] Comment on above: Performed By: #### C BC ####[facility] Sjysfxpeaw035[address] [place], [place] [address]DrLatoya Anthony IG # 0.05 10e3/ul Critically high 0.00-0.[address] [facility] Comment on above: Performed By: #### C BC ####[facility] Bldefaojee1036[address] [place], [place] [address]DrLatoya Nereydasiobhan Anthony IG % 0.6 % Critically high 0.0-0.[address] [facility] Comment on above: Performed By: #### C BC ####[facility] Reycqzgbvt4635[address] [place], [place] [address]DrLatoya Anthony LYMPH # 0.4 103/ul Critically low 1.2-3.8 [facility] Comment on above: Performed By: #### C BC ####[facility] Bliizvsghb7466[address] [place], [place] [address]DrLatoya Anthony Lymphocytes/100 WBC (Bld) 4.0 % Critically low 20.5-60.0 [facility] Comment on above: Performed By: #### C BC ####[facility] Wikymzaigu470[address] [place], [place] [address]DrLatoya Anthony MANUAL DIFF REQ NO Normal [facility] Comment on above: Performed By: #### C BC ####[facility] Pyrqnpxjhg8337 [place] [address]DrLatoya Anthony MCH (RBC) [Entitic mass] 25.2 pg Critically low 25.9-34.[address] [facility] Comment on above: Performed By: #### C BC ####[facility] Bnwmqdzneu3720 [place] [address]DrLatoya Anthony MCHC (RBC) [Mass/Vol] 30.2 g/dL Normal 29.9-35.2 [facility] Comment on above: Performed By: #### C BC ####[facility] Uwkyjoednb5258 [place] [address]DrLatoya Anthony MCV (RBC) [Entitic vol] 83.5 fL Normal 80.0-94.[address] [facility] Comment on above: Performed By: #### C BC ####[facility] Gnwrssupmi6440[address] [place], [place] [address]DrLatoya Anthony MONO # 0.9 103/ul Critically high 0.3-0.[address] [facility] Comment on above: Performed By: #### C BC ####[facility] Uvtqgliing8027[address] [place], [place] [address]DrLatoya Anthony Monocytes/100 WBC (Bld) 9.7 % Normal 1.7-12.[address] [facility] Comment on above: Performed By: #### C BC ####[facility] Xquqxjeplk9407[address] [place], [place] [address]DrLatoya Anthony NEUT # 7.6 103/ul Critically high 1.4-6.5 [facility] Comment on above: Performed By: #### C BC ####[facility] Ggmpalrzcl2504[address] [place], [place] [address]DrLatoya Anthony Neutrophils/100 WBC (Bld) 84.4 % Critically high 43.0-75.0 [facility] Comment on above: Performed By: #### C BC ####[facility] Ndyxynlixu7178[address] [place], [place] [address]DrLatoya Anthony Platelet mean volume (Bld) [Entitic vol] 10.0 fL Normal 9.5-13.[address] [facility] Comment on above: Performed By: #### C BC ####[facility] Paavxbnndu5094 [place] [address]Dr. Elba Anthony PLT 154 103/ul Normal 150-[address] [facility] Comment on above: Performed By: #### C BC ####[facility] Xkzvxfclgn0087 [place] [address]Dr. Elba Anthony RBC 3.57 106/ul Critically low 4.70-6.[address] [facility] Comment on above: Performed By: #### C BC ####[facility] Mzvjunroxi3578 [place] [address]Dr. Elba Anthony WBC 9.0 103/ul Normal 4.0-11.[address] [facility] Comment on above: Performed By: #### C BC ####[facility] Nobrqygczx8944 [place] [address]DrLatoya Anthony PROF 14(COMP METB)on 022 Albumin [Mass/Vol] 2.3 g/dL Critically low 3.4-5.0 [facility] Comment on above: Performed By: #### C MP ####[facility] Asbrxpckhk8834[address] [place], [place] [address]DrLatoya Anthony Albumin/Globulin [Mass ratio] 0.6 {ratio} Normal [facility] Comment on above: Performed By: #### C MP ####[facility] Bnsgbbumfl7835 [place] [address]Dr. Elba Anthony ALP [Catalytic activity/Vol] 75 U/L Normal 46-[address] [facility] Comment on above: Performed By: #### C MP ####[facility] Mxrmtqrmno3182 [place] [address]Dr. Elba Anthony ALT [Catalytic activity/Vol] 30 U/L Normal 16-[address] [facility] Comment on above: Performed By: #### C MP ####[facility] Bvvugovuvn2074 [place] [address]DrLatoya Anthony Anion gap [Moles/Vol] 11.6 mmol/L Normal Th [facility] Comment on above: Performed By: #### C MP ####[facility] Ddgtaoqpme3553 [place] [id number]. Elba Anthony AST [Catalytic activity/Vol] 26 U/L Normal 15-[address] [facility] Comment on above: Performed By: #### C MP ####[facility] Tsneazhrir2723 [place] [id number]. Elba Anthony Bilirubin [Mass/Vol] 0.9 mg/dL Normal 0.2-1.[address] [facility] Comment on above: Performed By: #### C MP ####[facility] Vauwaquepv2574 [place] [address]Dr. Elba Anthony Calcium [Mass/Vol] 8.1 mg/dL Critically low 8.5-10.1 [facility] Comment on above: Performed By: #### C MP ####[facility] Ulfjxizzsh55[address] [place], [place] [address]Dr. Elba Anthony Chloride [Moles/Vol] 101 mmol/L Normal 98-[address] [facility] Comment on above: Performed By: #### C MP ####[facility] Tduiispxcx5430[address] [place], [place] [address]Dr. Elba Anthony CO2 [Moles/Vol] 26.2 mmol/L Normal 22.0-30.[address] [facility] Comment on above: Performed By: #### C MP ####[facility] Stocbterrs7054[address] [place], [place] [address]Dr. Elba Anthony Creatinine [Mass/Vol] 2.26 mg/dL Critically high 0.66-1.[address] [facility] Comment on above: Performed By: #### C MP ####[facility] Hlisbyhpnr0316 [place] [id number]. Elba Raj EGFR-AF NIUEAN 35 mL/min/1.73m2 Critically low >=[address] [facility] Comment on above: Performed By: #### C MP ####[facility] Lkqfxcoctp[address] [place], [place] [id number]. Elba Anthony EGFR-NON AF NIUEAN 29 mL/min/1.73m2 Critically low >=[address] [facility] Comment on above: Performed By: #### C MP ####[facility] Hkhyequpbi4542 [place] [address]Dr. Elba Anthony Globulin (S) [Mass/Vol] 4.1 g/dL Normal [facility] Comment on above: Performed By: #### C MP ####[facility] Yiuxcxsxfd2193 [place] [phone]. Elba Anthony Glucose [Mass/Vol] 110 mg/dL Critically high 74-106 [facility] Comment on above: Performed By: #### C MP ####[facility] Uxwtdizvxr04[address] [place] [address]Dr. Elba Anthony Potassium [Moles/Vol] 3.8 mmol/L Normal 3.4-5.[address] [facility] Comment on above: Performed By: #### C MP ####[facility] Mdcvxwkwcv55[address] [place], [place] [address]Dr. Elba Anthony Protein [Mass/Vol] 6.4 g/dL Normal 6.1-8.[address] [facility] Comment on above: Performed By: #### C MP ####[facility] Tgmpdogktx7388[address] [place], [place] [address]Dr. Elba Anthony Sodium [Moles/Vol] 135 mmol/L Critically low 137-145 Th [facility] Comment on above: Performed By: #### C MP ####[facility] Ekqqxkiduu5[address] [place] [address]Dr. Elba Anthony Urea nitrogen [Mass/Vol] 49.0 mg/dL Critically high 7.0-18.[address] [facility] Comment on above: Performed By: #### C MP ####[facility] Bjserxijvp60[address] [place], [place] [id number]. Elba Anthony Urea nitrogen/Creatinine [Mass ratio] 21.7 mg/mg Normal [facility] Comment on above: Performed By: #### C MP ####[facility] Hyftloekmd40[address] [place] [id number]. Elba Anthony BLOOD CULTURE ID/SENSon 12-07 Aerobe ID + Suscept Final report Abnormal [facility] Comment on above: Performed By: #### C XPOSBL ####[facility] Eosvtpggvy7469[address] [place], [place] [address]Dr. Elba Anthony Antimicrobial Susceptibility Comment Normal [facility] Comment on above: Result Comment: S = Susceptible; I = Intermediate; R = Resistant P = Positive; N = Negative MICS are expressed in micrograms per mL Antibiotic RSLT#1 RSLT#2 RSLT#3 RSLT#4Amikacin SCefepime SCeftazidime SCiprofloxacin SGentamicin SImipenem SLevofloxacin SMeropenem SPiperacillin STicarcillin STobramycin S Performed By: #### C XPOSBL ####[facility] Payhmxgopw0[address] [place], [place] [address]Dr. Elba Anthony Result 1 Comment Abnormal [facility] Comment on above: Result Comment: Pseu domonas aeruginosaReceived aerobic bottle only. Performed By: #### C XPOSBL ####[facility] Nddizzguhm3054[address] [place], [place] [address]Dr. Elba Anthony Result Comment: Pseu domonas aeruginosaReceived anaerobic bottle only. CBC AUTO DIFFon 12-16-2021 BASO # 0.0 103/ul Normal 0.0-0.1 [facility] Comment on above: Performed By: #### C BC ####[facility] Karjnwpyjg1370[address] [place], [place] [address]Dr. Elba Anthony Basophils/100 WBC (Bld) 0.3 % Normal 0.2-2.0 [facility] Comment on above: Performed By: #### C BC ####[facility] Hwvtsdjrxg05[address] [place], [place] [address]Dr. Elba Anthony EO # 0.1 103/ul Normal 0.0-0.7 [facility] Comment on above: Performed By: #### C BC ####[facility] Iywkejumek36[address] [place], [place] [address]Dr. Elba Anthony Eosinophils/100 WBC (Bld) 1.7 % Normal 0.9-7.0 [facility] Comment on above: Performed By: #### C BC ####[facility] Gvbiuaajyy7[address] [place] [address]Dr. Elba Anthony Erythrocyte distribution width (RBC) [Ratio] 18.8 % Critically high 11.0-15.[address] [facility] Comment on above: Performed By: #### C BC ####[facility] Wgeitvggso08[address] [place], [place] [address]Dr. Elba Anthony Hematocrit (Bld) [Volume fraction] 28.8 % Critically low 42.0-54.[address] [facility] Comment on above: Performed By: #### C BC ####[facility] Rjajcmgkgo4056[address] [place], [place] [address]Dr. Elba Anthony Hemoglobin (Bld) [Mass/Vol] 8.6 g/dL Critically low 14.0-18.[address] [facility] Comment on above: Performed By: #### C BC ####[facility] Bwtrlxdlap199[address] [place], [place] [address]Dr. Elba Anthony IG # 0.05 10e3/ul Critically high 0.00-0.[address] [facility] Comment on above: Performed By: #### C BC ####[facility] Zvruolhoxa5615[address] [place], [place] [address]Dr. Ebla Anthony IG % 0.7 % Critically high 0.0-0.[address] [facility] Comment on above: Performed By: #### C BC ####[facility] Rhfvgftgaq5105[address] [place], [place] [address]Dr. Elba Anthony LYMPH # 0.4 103/ul Critically low 1.2-3.8 [facility] Comment on above: Performed By: #### C BC ####[facility] Kyovqdilbq1636[address] [place], [place] [address]Dr. Elba Anthony Lymphocytes/100 WBC (Bld) 5.4 % Critically low 20.5-60.0 [facility] Comment on above: Performed By: #### C BC ####[facility] Lzotnpkjym8067[address] [place], [place] [address]Dr. Elba Anthony MANUAL DIFF REQ NO Normal [facility] Comment on above: Performed By: #### C BC ####[facility] Qkoiathjmp9784 [place] [id number]. Elba Raj MCH (RBC) [Entitic mass] 25.0 pg Critically low 25.9-34.0 [facility] Comment on above: Performed By: #### C BC ####[facility] Jxruifluvd0362 [place] [id number]. Elba Raj MCHC (RBC) [Mass/Vol] 29.9 g/dL Normal 29.9-35.2 [facility] Comment on above: Performed By: #### C BC ####[facility] Ltwooshhoq9[address] [place] [address]Dr. Elba Anthony MCV (RBC) [Entitic vol] 83.7 fL Normal 80.0-94.0 [facility] Comment on above: Performed By: #### C BC ####[facility] Dxubtzpjnp15[address] [place], [place] [address]Dr. Elba Anthony MONO # 0.7 103/ul Normal 0.3-0.8 [facility] Comment on above: Performed By: #### C BC ####[facility] Csaadptdbf4[address] [place], [place] [address]Dr. Elba Anthony Monocytes/100 WBC (Bld) 10.2 % Normal 1.7-12.0 [facility] Comment on above: Performed By: #### C BC ####[facility] Oqaltgvjcc0035[address] [place], [place] [address]Dr. Elba Anthony NEUT # 5.9 103/ul Normal 1.4-6.5 [facility] Comment on above: Performed By: #### C BC ####[facility] Ulntazsnzu7835[address] [place], [place] [address]Dr. Elba Anthony Neutrophils/100 WBC (Bld) 81.7 % Critically high 43.0-75.0 [facility] Comment on above: Performed By: #### C BC ####[facility] Ycvbkjfuuf38[address] [place] [address]Dr. Elba Anthony Platelet mean volume (Bld) [Entitic vol] 10.8 fL Normal 9.5-13.5 [facility] Comment on above: Performed By: #### C BC ####[facility] Ygnykvqvcc5102 [place] [address]Dr. Nereydasiobhan Raj PLT 150 103/ul Normal 150-[address] [facility] Comment on above: Performed By: #### C BC ####[facility] Bryccpgcbt1102 [place] [id number]. Nereydasiobhan Anthony RBC 3.44 106/ul Critically low 4.70-6.[address] [facility] Comment on above: Performed By: #### C BC ####[facility] Vdmgclkkym0042 [place] [address]Dr. Nereydasiobhan Raj WBC 7.2 103/ul Normal 4.0-11.[address] [facility] Comment on above: Performed By: #### C BC ####[facility] Walcvbfoqf8[address] [place] [address]Dr. Elba Anthony PROF 14(COMP METB)on 022 Albumin [Mass/Vol] 2.3 g/dL Critically low 3.4-5.0 [facility] Comment on above: Performed By: #### C MP ####[facility] Gxttqswisr15[address] [place], [place] [address]Dr. Elba Anthony Albumin/Globulin [Mass ratio] 0.6 {ratio} Normal [facility] Comment on above: Performed By: #### C MP ####[facility] Dgpnwyceom95[address] [place] [address]Dr. Elba Anthony ALP [Catalytic activity/Vol] 77 U/L Normal 46-[address] [facility] Comment on above: Performed By: #### C MP ####[facility] Mogdozkjcq23[address] [place] [address]Dr. Elba Anthony ALT [Catalytic activity/Vol] 26 U/L Normal 16-[address] [facility] Comment on above: Performed By: #### C MP ####[facility] Kpnwgopkat1182 [place] [address]Dr. Elba Anthony Anion gap [Moles/Vol] 12.3 mmol/L Normal [facility] Comment on above: Performed By: #### C MP ####[facility] Nuhzstluse1651 [place] [address]Dr. Elba Anthony AST [Catalytic activity/Vol] 23 U/L Normal 15-[address] [facility] Comment on above: Performed By: #### C MP ####[facility] Pftwcqvdyx2911 [place] [id number]. Elba Anthony Bilirubin [Mass/Vol] 0.8 mg/dL Normal 0.2-1.[address] [facility] Comment on above: Performed By: #### C MP ####[facility] Rgexwonuiz9147[address] [place], [place] [address]Dr. Elba Anthony Calcium [Mass/Vol] 8.0 mg/dL Critically low 8.5-10.1 Th [facility] Comment on above: Performed By: #### C MP ####[facility] Pecftguzpv[address] [place], [place] [address]Dr. Elba Anthony Chloride [Moles/Vol] 101 mmol/L Normal 98-[address] [facility] Comment on above: Performed By: #### C MP ####[facility] Bwycjzmqte187[address] [place], [place] [address]Dr. Elba Anthony CO2 [Moles/Vol] 25.8 mmol/L Normal 22.0-30.[address] [facility] Comment on above: Performed By: #### C MP ####[facility] Ylmgezfjfw5932[address] [place], [place] [address]Dr. Elba Anthony Creatinine [Mass/Vol] 2.72 mg/dL Critically high 0.66-1.[address] [facility] Comment on above: Performed By: #### C MP ####[facility] Dsijnjnbar8930[address] [place], [place] [address]Dr. Elba Anthony EGFR-AF NIUEAN 28 mL/min/1.73m2 Critically low >=60 [facility] Comment on above: Performed By: #### C MP ####[facility] Xkgxphltgk35[address] [place], [place] [address]Dr. Elba Raj EGFR-NON AF NIUEAN 23 mL/min/1.73m2 Critically low >=60 [facility] Comment on above: Performed By: #### C MP ####[facility] Uvmgmceklv8172 [place] [address]Dr. Elba Anthony Globulin (S) [Mass/Vol] 4.1 g/dL Normal [facility] Comment on above: Performed By: #### C MP ####[facility] Ynxtqwyces2048 [place] [address]Dr. Elba Anthony Glucose [Mass/Vol] 130 mg/dL Critically high 74-106 [facility] Comment on above: Performed By: #### C MP ####[facility] Fbhkyscpib7066 [place] [address]Dr. Elba Anthony Potassium [Moles/Vol] 4.1 mmol/L Normal 3.4-5.[address] [facility] Comment on above: Performed By: #### C MP ####[facility] Xiyvppicxx101[address] [place], [place] [address]Dr. Elba Anthony Protein [Mass/Vol] 6.4 g/dL Normal 6.1-8.[address] [facility] Comment on above: Performed By: #### C MP ####[facility] Equsdizxlm8579[address] [place], [place] [address]Dr. Elba Anthony Sodium [Moles/Vol] 135 mmol/L Critically low 137-145 [facility] Comment on above: Performed By: #### C MP ####[facility] Yygstoxcva[address] [place], [place] [address]Dr. Elba Anthony Urea nitrogen [Mass/Vol] 60.0 mg/dL Critically high 7.0-18.[address] [facility] Comment on above: Performed By: #### C MP ####[facility] Qxouluauar509[address] [place], [place] [address]Dr. Elba Anthony Urea nitrogen/Creatinine [Mass ratio] 22.1 mg/mg Normal [facility] Comment on above: Performed By: #### C MP ####[facility] Plcqwknvds3104[address] [place], [place] [address]Dr. Elba Anthony BNPon 12-15-2021 Natriuretic peptide B (Bld) [Mass/Vol] 36388.0 pg/mL Critically high <=900.0 [facility] Comment on above: Result Comment: Test Repeated. Critical Value Verified Performed By: #### C MP, BNP, CRP ####[facility] Apmjfvtgkg5396 [place] [address]Dr. Elba Anthony CBC AUTO DIFFon 12-15-2021 BASO # 0.0 103/ul Normal 0.0-0.1 [facility] Comment on above: Performed By: #### C BC ####[facility] Opmeozckbc939[address] [place], [place] [address]Dr. Nereydasiobhan Anthony Basophils/100 WBC (Bld) 0.2 % Normal 0.2-2.0 [facility] Comment on above: Performed By: #### C BC ####[facility] Qprgsbkewm5449[address] [place], [place] [address]Dr. Elba Anthony EO # 0.1 103/ul Normal 0.0-0.7 [facility] Comment on above: Performed By: #### C BC ####[facility] Badzodvqiq4000[address] [place], [place] [address]Dr. Nereydasiobhan Anthony Eosinophils/100 WBC (Bld) 1.3 % Normal 0.9-7.0 [facility] Comment on above: Performed By: #### C BC ####[facility] Rtuhbqwwfm[address] [place], [place] [address]Dr. Elba Anthony Erythrocyte distribution width (RBC) [Ratio] 19.0 % Critically high 11.0-15.0 [facility] Comment on above: Performed By: #### C BC ####[facility] Ngapuwokin48[address] [place], [place] [address]Dr. Elba Anthony Hematocrit (Bld) [Volume fraction] 28.7 % Critically low 42.0-54.0 [facility] Comment on above: Performed By: #### C BC ####[facility] Untfxffkah5709[address] [place], [place] [address]Dr. Elba Anthony Hemoglobin (Bld) [Mass/Vol] 8.7 g/dL Critically low 14.0-18.0 [facility] Comment on above: Performed By: #### C BC ####[facility] Txpbdlyquc14[address] [place] [address]Dr. Nereydasiobhan Anthony IG # 0.04 10e3/ul Critically high 0.00-0.03 [facility] Comment on above: Performed By: #### C BC ####[facility] Fdwnfzbnjv0054 [place] [address]Dr. Nereydasiobhan Anthony IG % 0.5 % Normal 0.0-0.5 [facility] Comment on above: Performed By: #### C BC ####[facility] Kfpsgdtteq1128 [place] [address]Dr. Elba Anthony LYMPH # 0.4 103/ul Critically low 1.2-3.8 [facility] Comment on above: Performed By: #### C BC ####[facility] Vzpmagygno7901 [place] [address]Dr. Elba Anthony Lymphocytes/100 WBC (Bld) 4.2 % Critically low 20.5-60.0 [facility] Comment on above: Performed By: #### C BC ####[facility] Vzhzxsjlld[address] [place], [place] [address]Dr. Elba Anthony MANUAL DIFF REQ NO Normal [facility] Comment on above: Performed By: #### C BC ####[facility] Kbalplhyue6863 [place] [address]Dr. Nereydasiobhan Anthony MCH (RBC) [Entitic mass] 25.5 pg Critically low 25.9-34.0 [facility] Comment on above: Performed By: #### C BC ####[facility] Nreukezegi9482 [place] [address]Dr. Nereydasiobhan Anthony MCHC (RBC) [Mass/Vol] 30.3 g/dL Normal 29.9-35.2 [facility] Comment on above: Performed By: #### C BC ####[facility] Emauviplip1084[address] [place], [place] [address]Dr. Nereydasiobhan Anthony MCV (RBC) [Entitic vol] 84.2 fL Normal 80.0-94.0 [facility] Comment on above: Performed By: #### C BC ####[facility] Ghjvlrhhbv6599 [place] [id number]. Elba Anthony MONO # 0.6 103/ul Normal 0.3-0.8 [facility] Comment on above: Performed By: #### C BC ####[facility] Bmgvdvbbut8736 [place] [id number]. Elba Anthony Monocytes/100 WBC (Bld) 7.5 % Normal 1.7-12.0 [facility] Comment on above: Performed By: #### C BC ####[facility] Muzyjjcnon4558 [place] [id number]. Elba Anthony NEUT # 7.2 103/ul Critically high 1.4-6.5 [facility] Comment on above: Performed By: #### C BC ####[facility] Ccfydaycby3264 [place] [address]Dr. Elba Anthony Neutrophils/100 WBC (Bld) 86.3 % Critically high 43.0-75.0 [facility] Comment on above: Performed By: #### C BC ####[facility] Gvwtxmuxse3036 [place] [id number]. Elba Anthony Platelet mean volume (Bld) [Entitic vol] 10.7 fL Normal 9.5-13.5 [facility] Comment on above: Performed By: #### C BC ####[facility] Yixohiiaum6096 [place] [id number]. Elba Anthony PLT 132 103/ul Critically low 150-450 [facility] Comment on above: Performed By: #### C BC ####[facility] Hxvzykccxg4032 [place] [id number]. Elba Anthony RBC 3.41 106/ul Critically low 4.70-6.10 [facility] Comment on above: Performed By: #### C BC ####[facility] Pkpkytqfqb2919 [place] [id number]. lEba Anthony WBC 8.4 103/ul Normal 4.0-11.0 [facility] Comment on above: Performed By: #### C BC ####[facility] Ydkrhbzool[address] [place], [place] [id number]. Elba Anthony CRPon 12-15-2021 CRP [Mass/Vol] mg/L Critically high <=1.[address] [facility] Comment on above: Performed By: #### C MP, BNP, CRP ####[facility] Nwbptfabqo9963 [place] [address]Dr. Elba Anthony PROF 14(COMP METB)on 022 Albumin [Mass/Vol] 2.4 g/dL Critically low 3.4-5.0 [facility] Comment on above: Performed By: #### C MP, BNP, CRP ####[facility] Wrethygsqe9007 [place] [address]Dr. Elba Anthony Albumin/Globulin [Mass ratio] 0.6 {ratio} Normal [facility] Comment on above: Performed By: #### C MP, BNP, CRP ####[facility] Qkktgzncnn9113 [place] [address]Dr. Elba Anthony ALP [Catalytic activity/Vol] 75 U/L Normal 46-[address] [facility] Comment on above: Performed By: #### C MP, BNP, CRP ####[facility] Xknlbpzogw0377 [place] [address]Dr. Elba Anthony ALT [Catalytic activity/Vol] 22 U/L Normal 16-[address] [facility] Comment on above: Performed By: #### C MP, BNP, CRP ####[facility] Wluaxultsd1905 [place] [address]Dr. Elba Anthony Anion gap [Moles/Vol] 13.8 mmol/L Normal [facility] Comment on above: Performed By: #### C MP, BNP, CRP ####[facility] Gsfxgkwyck0314 [place] [address]Dr. Elba Anthony AST [Catalytic activity/Vol] 17 U/L Normal 15-[address] [facility] Comment on above: Performed By: #### C MP, BNP, CRP ####[facility] Jkkjbsvdlb8344 [place] [address]Dr. Elba Anthony Bilirubin [Mass/Vol] 0.8 mg/dL Normal 0.2-1.[address] [facility] Comment on above: Performed By: #### C MP, BNP, CRP ####[facility] Wltflmxvua5104[address] [place], [place] [address]Dr. Elba Anthony Calcium [Mass/Vol] 7.7 mg/dL Critically low 8.5-10.1 Th e [facility] Comment on above: Performed By: #### C MP, BNP, CRP ####[facility] Zuvrarwnwd00[address] [place], [place] [address]Dr. Elba Anthony Chloride [Moles/Vol] 98 mmol/L Normal 98-107 [facility] Comment on above: Performed By: #### C MP, BNP, CRP ####[facility] Myniwsziut7366[address] [place], [place] [address]Dr. Elba Anthony CO2 [Moles/Vol] 24.5 mmol/L Normal 22.0-30.[address] [facility] Comment on above: Performed By: #### C MP, BNP, CRP ####[facility] Osynvvfrrs0689[address] [place], [place] [address]Dr. Elba Anthony Creatinine [Mass/Vol] 3.10 mg/dL Critically high 0.66-1.[address] [facility] Comment on above: Performed By: #### C MP, BNP, CRP ####[facility] Iueuhxrrdt4[address] [place], [place] [address]Dr. Elba Anthony EGFR-AF NIUEAN 24 mL/min/1.73m2 Critically low >=60 [facility] Comment on above: Performed By: #### C MP, BNP, CRP ####[facility] Zokafsqpqq156[address] [place], [place] [address]Dr. Elba Anthony EGFR-NON AF NIUEAN 20 mL/min/1.73m2 Critically low >=60 [facility] Comment on above: Performed By: #### C MP, BNP, CRP ####[facility] Zmqagljrth1767[address] [place], [place] [address]Dr. Elba Anthony Globulin (S) [Mass/Vol] 4.1 g/dL Normal [facility] Comment on above: Performed By: #### C MP, BNP, CRP ####[facility] Wiuyndqyft6359 [place] [address]Dr. Nereydasiobhan Anthony Glucose [Mass/Vol] 141 mg/dL Critically high 74-106 [facility] Comment on above: Performed By: #### C MP, BNP, CRP ####[facility] Navbotzhrt0214[address] [place], [place] [address]Dr. Elba Anthony Potassium [Moles/Vol] 4.3 mmol/L Normal 3.4-5.[address] [facility] Comment on above: Performed By: #### C MP, BNP, CRP ####[facility] Waszcgqwiz638[address] [place], [place] [address]Dr. Elba Anthony Protein [Mass/Vol] 6.5 g/dL Normal 6.1-8.[address] [facility] Comment on above: Performed By: #### C MP, BNP, CRP ####[facility] Irtujuhihj29[address] [place], [place] [address]Dr. Elba Anthony Sodium [Moles/Vol] 132 mmol/L Critically low 137-145 [facility] Comment on above: Performed By: #### C MP, BNP, CRP ####[facility] Rdrwcfnazf[address] [place], [place] [address]Dr. Elba Anthony Urea nitrogen [Mass/Vol] 62.0 mg/dL Critically high 7.0-18.[address] [facility] Comment on above: Performed By: #### C MP, BNP, CRP ####[facility] Iylxcknjgo41[address] [place], [place] [address]Dr. Elba Anthony Urea nitrogen/Creatinine [Mass ratio] 20.0 mg/mg Normal [facility] Comment on above: Performed By: #### C MP, BNP, CRP ####[facility] Mxbjdnltav[address]26[address] [place], [place] [address]Dr. Elba Anthony UA RANDOM W/MICROSCOPICon BACTERIA TRACE Abnormal NONE SEEN The [facility] Comment on above: Performed By: #### U AMIC ####[facility] Ytklihalvp39[address] [place], [place] [address]Dr. Elba Anthony Bilirubin Ql (U) Negative Normal NEGATIVE [facility] Comment on above: Performed By: #### U AMIC ####[facility] Dxyitlecvb7097 [place] [id number]. Elba Anthony CAST NONE SEEN Normal NONE SEEN [facility] Comment on above: Performed By: #### U AMIC ####[facility] Ejggrwmfrb8682 [place] [address]Dr. Elba Anthony Clarity (U) CLEAR Normal CLEAR [facility] Comment on above: Performed By: #### U AMIC ####[facility] Oawqgcmtmw8619 [place] [address]Dr. Elba Anthony Color (U) LT. YELLOW Normal YELLOW [facility] Comment on above: Performed By: #### U AMIC ####[facility] Piyiklxrid[address] [place], [place] [address]Dr. Elba Anthony Crystals LM Nom (Urine sed) SEEN Abnormal NONE SEEN [facility] Comment on above: Performed By: #### U AMIC ####[facility] Xiypbkopbk0306 [place] [address]Dr. Elba Anthony Epithelial cells LM Ql (Urine sed) RARE Normal NONE SEEN /RARE [facility] Comment on above: Performed By: #### U AMIC ####[facility] Qonptexfif12[address] [place], [place] [address]Dr. Elba Anthony Glucose Ql (U) Negative Normal NEGATIVE [facility] Comment on above: Performed By: #### U AMIC ####[facility] Zzqsdicipp7264[address] [place], [place] [address]Dr. Elba Anthony Hemoglobin Ql (U) MODERATE Abnormal NEGATIVE [facility] Comment on above: Performed By: #### U AMIC ####[facility] Wuajkjwgwv[address] [place], [place] [address]Dr. Elba Anthony Ketones Ql (U) Negative Normal NEGATIVE [facility] Comment on above: Performed By: #### U AMIC ####[facility] Zwcgodboak24[address] [place] [address]Dr. Elba Anthony LEUKOCYTES Negative Normal NEGATIVE [facility] Comment on above: Performed By: #### U AMIC ####[facility] Azaylmeoys[address] [place], [place] [address]Dr. Elba Anthony MUCOUS NONE SEEN Normal NONE SEEN [facility] Comment on above: Performed By: #### U AMIC ####[facility] Iuqxbkszak46[address] [place] [address]Dr. Elba Anthony Nitrite Ql (U) Negative Normal NEGATIVE [facility] Comment on above: Performed By: #### U AMIC ####[facility] Cqbypnttiz13[address] [place] [address]Dr. Elba Anthony pH (U) 5.5 [pH] Normal 5-9 [facility] Comment on above: Performed By: #### U AMIC ####[facility] Wuqsslqyyn44[address] [place], [place] [address]Dr. Elba Anthony RBC 50-75 Abnormal 0-2 [facility] Comment on above: Performed By: #### U AMIC ####[facility] Lebgzwnrzd82[address] [place], [place] [address]Dr. Elba Anthony SPEC GRAVITY 1.015 Normal 1.005-<=1.02 5 [facility] Comment on above: Performed By: #### U AMIC ####[facility] Wjusdtbawh[address] [place], [place] [address]Dr. Elba Anthony UA PROTEIN Negative Normal NEGATIVE/ TRACE [facility] Comment on above: Performed By: #### U AMIC ####[facility] Wgxlwwjzqn89[address] [place], [place] [address]Dr. Elba Anthony URIC ACID CRYSTALS FEW Normal [facility] Comment on above: Performed By: #### U AMIC ####[facility] Gwtafpywff9[address] [place], [place] [address]Dr. Elba Anthony Urobilinogen Qn (U) 0.2 {Caden'U}/dL Normal 0.2 - 1. 0 [facility] Comment on above: Performed By: #### U AMIC ####[facility] Qhxrzbkuhs94[address] [place] [address]Dr. Elba Anthony WBC 0-2 Abnormal NONE SEEN [facility] Comment on above: Performed By: #### U AMIC ####[facility] Fcufyhfeym12[address] [place], [place] [address]Dr. Elba Anthony BNPon 12-14-2021 Natriuretic peptide B (Bld) [Mass/Vol] 08210.0 pg/mL Critically high <=900.[address] [facility] Comment on above: Result Comment: test repeated Performed By: #### C RP, CMP, BNP ####[facility] Mqcyxownsz27[address] [place], [place] [address]Dr. Elba Raj CBC AUTO DIFFon 12-14-2021 BASO # 0.0 103/ul Normal 0.0-0.[address] [facility] Comment on above: Performed By: #### C BC ####[facility] Xmmshdxsjw[address] [place], [place] [address]Dr. Elba Anthony Basophils/100 WBC (Bld) 0.1 % Critically low 0.2-2.[address] [facility] Comment on above: Performed By: #### C BC ####[facility] Tuhqyncvto9769[address] [place], [place] [address]Dr. Elba Anthony EO # 0.1 103/ul Normal 0.0-0.[address] [facility] Comment on above: Performed By: #### C BC ####[facility] Xfkinjtofv2290[address] [place], [place] [address]Dr. Elba Anthony Eosinophils/100 WBC (Bld) 1.1 % Normal 0.9-7.[address] [facility] Comment on above: Performed By: #### C BC ####[facility] Mzayahrxxs0074[address] [place], [place] [address]Dr. Elba Anthony Erythrocyte distribution width (RBC) [Ratio] 18.7 % Critically high 11.0-15.0 [facility] Comment on above: Performed By: #### C BC ####[facility] Ioicaxbztc020[address] [place], [place] [address]Dr. Elba Anthony Hematocrit (Bld) [Volume fraction] 28.9 % Critically low 42.0-54.[address] [facility] Comment on above: Performed By: #### C BC ####[facility] Zorfrttezf8[address] [place], [place] [address]Dr. Elba Anthony Hemoglobin (Bld) [Mass/Vol] 8.7 g/dL Critically low 14.0-18.0 [facility] Comment on above: Performed By: #### C BC ####[facility] Ipkoofslsn4525 [place] [address]DrLatoya Anthony IG # 0.04 10e3/ul Critically high 0.00-0.[address] [facility] Comment on above: Performed By: #### C BC ####[facility] Liyavotkoo39[address] [place], [place] [address]DrLatoya Anthony IG % 0.4 % Normal 0.0-0.[address] [facility] Comment on above: Performed By: #### C BC ####[facility] Cspdwktlyc7718[address] [place], [place] [address]DrLatoya Anthony LYMPH # 0.4 103/ul Critically low 1.2-3.8 [facility] Comment on above: Performed By: #### C BC ####[facility] Wiyupwowvo696[address] [place], [place] [address]DrLatoya Anthony Lymphocytes/100 WBC (Bld) 4.1 % Critically low 20.5-60.0 [facility] Comment on above: Result Comment: dif. not rqd. same as 12/12/21 Performed By: #### C BC ####[facility] Qermgznocs8790[address] [place], [place] [address]DrLatoya Anthony MANUAL DIFF REQ NO Normal [facility] Comment on above: Performed By: #### C BC ####[facility] Nwjvtkdkoh18[address] [place], [place] [address]DrLatoya Anthony MCH (RBC) [Entitic mass] 25.3 pg Critically low 25.9-34.0 [facility] Comment on above: Performed By: #### C BC ####[facility] Nldiwfomgx2987[address] [place], [place] [address]DrLatoya Anthony MCHC (RBC) [Mass/Vol] 30.1 g/dL Normal 29.9-35.2 [facility] Comment on above: Performed By: #### C BC ####[facility] Ekkeqxjzrs2[address] [place], [place] [address]DrLatoya Dawnsiobhan Raj MCV (RBC) [Entitic vol] 84.0 fL Normal 80.0-94.0 [facility] Comment on above: Performed By: #### C BC ####[facility] Tedewozsyx20[address] [place] [address]DrLatoya Elba Anthony MONO # 0.9 103/ul Critically high 0.3-0.8 [facility] Comment on above: Performed By: #### C BC ####[facility] Stgdricawd9418 [place] [address]DrLatoya Anthony Monocytes/100 WBC (Bld) 9.3 % Normal 1.7-12.0 [facility] Comment on above: Performed By: #### C BC ####[facility] Jombbddzgc7279[address] [place], [place] [address]DrLatoya Dawnsiobhan Raj NEUT # 7.8 103/ul Critically high 1.4-6.5 [facility] Comment on above: Performed By: #### C BC ####[facility] Gipnhtugxq2280[address] [place], [place] [address]Dr. Elba Anthony Neutrophils/100 WBC (Bld) 85.0 % Critically high 43.0-75.0 [facility] Comment on above: Performed By: #### C BC ####[facility] Yrppdxosjr7104[address] [place], [place] [address]Dr. Elba Anthony Platelet mean volume (Bld) [Entitic vol] 11.0 fL Normal 9.5-13.5 [facility] Comment on above: Performed By: #### C BC ####[facility] Bmhighuqmt92[address] [place] [address]Dr. Elba Anthony PLT 117 103/ul Critically low 150-450 [facility] Comment on above: Performed By: #### C BC ####[facility] Ptbbssozcm1920[address] [place], [place] [address]DrLatoya Anthony RBC 3.44 106/ul Critically low 4.70-6.10 [facility] Comment on above: Performed By: #### C BC ####[facility] Pmplfhrucq0956[address] [place], [place] [address]DrLatoya Anthony WBC 9.2 103/ul Normal 4.0-11.[address] [facility] Comment on above: Performed By: #### C BC ####[facility] Gwfnewrkec0643 [place] [address]Dr. Elba Anthony CRPon 12-14-2021 CRP [Mass/Vol] mg/L Critically high <=1.[address] [facility] Comment on above: Performed By: #### C RP, CMP, BNP ####[facility] Cqlashsaeq8516 [place] [address]Dr. Elba Anthony PROF 14(COMP METB)on 022 Albumin [Mass/Vol] 2.5 g/dL Critically low 3.4-5.0 [facility] Comment on above: Performed By: #### C RP, CMP, BNP ####[facility] Kcmjiqsazj04[address] [place], [place] [address]Dr. Elba Anthony Albumin/Globulin [Mass ratio] 0.6 {ratio} Normal [facility] Comment on above: Performed By: #### C RP, CMP, BNP ####[facility] Xsjaxkncit1112 [place] [address]Dr. Elba Anthony ALP [Catalytic activity/Vol] 76 U/L Normal 46-[address] [facility] Comment on above: Performed By: #### C RP, CMP, BNP ####[facility] Ripfyrafgq5224 [place] [address]Dr. Elba Anthony ALT [Catalytic activity/Vol] 17 U/L Normal 16-[address] [facility] Comment on above: Performed By: #### C RP, CMP, BNP ####[facility] Bhsbbvcvis8988 [place] [address]Dr. Elba Anthony Anion gap [Moles/Vol] 13.3 mmol/L Normal [facility] Comment on above: Performed By: #### C RP, CMP, BNP ####[facility] Cjspwylmmr2472 [place] [address]Dr. Elba Anthony AST [Catalytic activity/Vol] 22 U/L Normal 15-[address] [facility] Comment on above: Performed By: #### C RP, CMP, BNP ####[facility] Zktdiglgnq8202 [place] [address]Dr. Elba Anthony Bilirubin [Mass/Vol] 1.0 mg/dL Normal 0.2-1.[address] [facility] Comment on above: Performed By: #### C RP, CMP, BNP ####[facility] Jwszfifgyw113[address] [place], [place] [address]Dr. Elba Anthony Calcium [Mass/Vol] 8.1 mg/dL Critically low 8.5-10.1 Th [facility] Comment on above: Performed By: #### C RP, CMP, BNP ####[facility] Ikypkzbvqt0088[address] [place], [place] [address]Dr. Elba Anthony Chloride [Moles/Vol] 97 mmol/L Critically low 98-[address] [facility] Comment on above: Performed By: #### C RP, CMP, BNP ####[facility] Ufidfjtftl24[address] [place], [place] [address]Dr. Elba Anthony CO2 [Moles/Vol] 25.0 mmol/L Normal 22.0-30.0 [facility] Comment on above: Performed By: #### C RP, CMP, BNP ####[facility] Xxywawntde[address] [place], [place] [address]Dr. Elba Anthony Creatinine [Mass/Vol] 2.85 mg/dL Critically high 0.66-1.[address] [facility] Comment on above: Performed By: #### C RP, CMP, BNP ####[facility] Olqiscptge360[address] [place], [place] [address]Dr. Elba Anthony EGFR-AF NIUEAN 27 mL/min/1.73m2 Critically low >=60 [facility] Comment on above: Performed By: #### C RP, CMP, BNP ####[facility] Uuhirxkkcx[address] [place], [place] [address]Dr. Elba Anthony EGFR-NON AF NIUEAN 22 mL/min/1.73m2 Critically low >=[address] [facility] Comment on above: Performed By: #### C RP, CMP, BNP ####[facility] Wulckpzftv449[address] [place], [place] [address]Dr. Elba Anthony Globulin (S) [Mass/Vol] 3.9 g/dL Normal [facility] Comment on above: Performed By: #### C RP, CMP, BNP ####[facility] Qqbiccxzri9082 [place] [address]Dr. Elba Anthony Glucose [Mass/Vol] 123 mg/dL Critically high 74-106 [facility] Comment on above: Performed By: #### C RP, CMP, BNP ####[facility] Hegdrzaegg1523 [place] [address]Dr. Elba Anthony Potassium [Moles/Vol] 4.3 mmol/L Normal 3.4-5.[address] [facility] Comment on above: Performed By: #### C RP, CMP, BNP ####[facility] Uvztyyukyo3820 [place] [address]Dr. Elba Anthony Protein [Mass/Vol] 6.4 g/dL Normal 6.1-8.[address] [facility] Comment on above: Performed By: #### C RP, CMP, BNP ####[facility] Hduvinbpjo6796 [place] [address]Dr. Elba Anthony Sodium [Moles/Vol] 131 mmol/L Critically low 137-145 Th [facility] Comment on above: Performed By: #### C RP, CMP, BNP ####[facility] Uwbjgpixuv3218 [place] [address]Dr. Elba Anthony Urea nitrogen [Mass/Vol] 57.0 mg/dL Critically high 7.0-18.[address] [facility] Comment on above: Performed By: #### C RP, CMP, BNP ####[facility] Tdrpfnrgcm9903 [place] [address]Dr. Elba Anthony Urea nitrogen/Creatinine [Mass ratio] 20.0 mg/mg Normal [facility] Comment on above: Performed By: #### C RP, CMP, BNP ####[facility] Ttozrqneoq2957 [place] [address]Dr. Elba Anthony XR CHEST 1 Von 12-14-2021 XR CHEST 1 V Normal [facility] XR CHEST 1 V Normal [facility] BNPon 12-13-2021 Natriuretic peptide B (Bld) [Mass/Vol] 45157.0 pg/mL Critically high <=900.0 [facility] Comment on above: Performed By: #### B IT APPLICATIONS DEVELOPER ####[facility] Astgrdpiur4[address] [place], [place] [address]Dr. Nereydasiobhan Anthony CBC AUTO DIFFon 12-13-2021 BASO # 0.0 103/ul Normal 0.0-0.1 [facility] Comment on above: Performed By: #### C BC ####[facility] Wmukeojgxy27[address] [place], [place] [address]Dr. Elba Anthony Basophils/100 WBC (Bld) 0.1 % Critically low 0.2-2.0 [facility] Comment on above: Performed By: #### C BC ####[facility] Wjxaxbnidj5134[address] [place], [place] [address]Dr. Elba Anthony EO # 0.0 103/ul Normal 0.0-0.7 [facility] Comment on above: Performed By: #### C BC ####[facility] Kbejhrnpdl6[address] [place], [place] [address]Dr. Elba Anthony Eosinophils/100 WBC (Bld) 0.2 % Critically low 0.9-7.0 [facility] Comment on above: Performed By: #### C BC ####[facility] Nuynjakdbj949[address] [place], [place] [address]Dr. Elba Anthony Erythrocyte distribution width (RBC) [Ratio] 19.0 % Critically high 11.0-15.0 [facility] Comment on above: Performed By: #### C BC ####[facility] Pwjkzzyxli29[address] [place], [place] [address]Dr. Elba Anthony Hematocrit (Bld) [Volume fraction] 31.8 % Critically low 42.0-54.0 [facility] Comment on above: Performed By: #### C BC ####[facility] Veeslsptdb7[address] [place], [place] [address]Dr. Elba Anthony Hemoglobin (Bld) [Mass/Vol] 9.5 g/dL Critically low 14.0-18.0 [facility] Comment on above: Performed By: #### C BC ####[facility] Oovjvcuveh67[address] [place] [id number]. Nereydasiobhan Anthony IG # 0.05 10e3/ul Critically high 0.00-0.[address] [facility] Comment on above: Performed By: #### C BC ####[facility] Rbltetrrho7332 [place] [id number]. Elba Anthony IG % 0.4 % Normal 0.0-0.[address] [facility] Comment on above: Performed By: #### C BC ####[facility] Wujzqyozhj0175 [place] [address]DrLatoya Anthony LYMPH # 0.3 103/ul Critically low 1.2-3.8 [facility] Comment on above: Performed By: #### C BC ####[facility] Sndpevxwak9112 [place] [address]DrLatoya Anthony Lymphocytes/100 WBC (Bld) 2.3 % Critically low 20.5-60.[address] [facility] Comment on above: Result Comment: dif. not rqd. same as 12/12/21 Performed By: #### C BC ####[facility] Vdedgkhecu9566 [place] [address]DrLatoya Anthony MANUAL DIFF REQ NO Normal [facility] Comment on above: Performed By: #### C BC ####[facility] Xpdahfpkqr0152 [place] [address]DrLatoya Anthony MCH (RBC) [Entitic mass] 25.3 pg Critically low 25.9-34.[address] [facility] Comment on above: Performed By: #### C BC ####[facility] Ykkaoihydk039[address] [place] [id number] Anthony MCHC (RBC) [Mass/Vol] 29.9 g/dL Normal 29.9-35.2 [facility] Comment on above: Performed By: #### C BC ####[facility] Ysjdeqynaf7485 [place] [phone] Anthony MCV (RBC) [Entitic vol] 84.8 fL Normal 80.0-94.[address] [facility] Comment on above: Performed By: #### C BC ####[facility] Salnznzfbk9746 [place] [id number]. Elba Anthony MONO # 0.8 103/ul Normal 0.3-0.[address] [facility] Comment on above: Performed By: #### C BC ####[facility] Gkobxagffm3221 [place] [id number]. Elba Anthony Monocytes/100 WBC (Bld) 6.7 % Normal 1.7-12.[address] [facility] Comment on above: Performed By: #### C BC ####[facility] Mgzvzxqfey9226 [place] [address]Dr. Elba Anthony NEUT # 11.0 103/ul Critically high 1.4-6.[address] [facility] Comment on above: Performed By: #### C BC ####[facility] Wyquknmukq5438 [place] [address]Dr. Elba Anthony Neutrophils/100 WBC (Bld) 90.3 % Critically high 43.0-75.[address] [facility] Comment on above: Performed By: #### C BC ####[facility] Abuwisluks3539 [place] [address]Dr. Elba Anthony Platelet mean volume (Bld) [Entitic vol] 10.8 fL Normal 9.5-13.5 [facility] Comment on above: Performed By: #### C BC ####[facility] Fhnsiafsca8[address] [place] [address]Dr. Elba Anthony PLT 130 103/ul Critically low 150-450 [facility] Comment on above: Performed By: #### C BC ####[facility] Mczvmisqsc03[address] [place] [id number]. Nereydasiobhan Raj RBC 3.75 106/ul Critically low 4.70-6.10 [facility] Comment on above: Performed By: #### C BC ####[facility] Xkbymvhxaf0005 [place] [phone]. Elba Raj WBC 12.2 103/ul Critically high 4.0-11.0 [facility] Comment on above: Performed By: #### C BC ####[facility] Ttxherggqs0507 [place] [address]Dr. Elba Anthony CRPon 12-13-2021 CRP [Mass/Vol] mg/L Critically high <=1.[address] [facility] Comment on above: Performed By: #### C MP, CRP ####[facility] Pwmmgbtejb8544[address] [place], [place] [address]Dr. Elba Anthony ECHO LIMITED STUDYon ECHO LIMITED STUDY Normal [facility] PROF 14(COMP METB)on Albumin [Mass/Vol] 2.9 g/dL Critically low 3.4-5.0 [facility] Comment on above: Performed By: #### C MP, CRP ####[facility] Nwqhdyicri3404[address] [place], [place] [address]Dr. Elba Anthony Albumin/Globulin [Mass ratio] 0.7 {ratio} Normal [facility] Comment on above: Performed By: #### C MP, CRP ####[facility] Bxrjaobowz8667[address] [place], [place] [address]Dr. Elba Anthony ALP [Catalytic activity/Vol] 88 U/L Normal 46-[address] [facility] Comment on above: Performed By: #### C MP, CRP ####[facility] Ievecymfug2138 [place] [address]Dr. Elba Anthony ALT [Catalytic activity/Vol] 15 U/L Critically low 16-[address] [facility] Comment on above: Performed By: #### C MP, CRP ####[facility] Qekmarxcuc9711[address] [place], [place] [address]Dr. Elba Anthony Anion gap [Moles/Vol] 15.1 mmol/L Normal [facility] Comment on above: Performed By: #### C MP, CRP ####[facility] Mcxrqjnbjs5533[address] [place], [place] [address]Dr. Elba Anthony AST [Catalytic activity/Vol] 14 U/L Critically low 15-[address] [facility] Comment on above: Performed By: #### C MP, CRP ####[facility] Dktofxvzti2742 [place] [id number]. Elba Anthony Bilirubin [Mass/Vol] 1.5 mg/dL Critically high 0.2-1.3 [facility] Comment on above: Performed By: #### C MP, CRP ####[facility] Oinsrwqpug709[address] [place], [place] [address]Dr. Elba Anthony Calcium [Mass/Vol] 8.6 mg/dL Normal 8.5-10.1 [facility] Comment on above: Performed By: #### C MP, CRP ####[facility] Zpdifaqcip434[address] [place], [place] [address]Dr. Elba Anthony Chloride [Moles/Vol] 99 mmol/L Normal 98-107 [facility] Comment on above: Performed By: #### C MP, CRP ####[facility] Tndeuvcwpc62[address] [place], [place] [address]Dr. Elba Anthony CO2 [Moles/Vol] 24.3 mmol/L Normal 22.0-30.0 [facility] Comment on above: Performed By: #### C MP, CRP ####[facility] Afhvcworqm983[address] [place], [place] [address]Dr. Elba Anthony Creatinine [Mass/Vol] 2.52 mg/dL Critically high 0.66-1.25 [facility] Comment on above: Performed By: #### C MP, CRP ####[facility] Xwnieppmas020[address] [place], [place] [address]Dr. Elba Anthony EGFR-AF NIUEAN 31 mL/min/1.73m2 Critically low >=60 [facility] Comment on above: Performed By: #### C MP, CRP ####[facility] Cnvnjdnuul[address] [place], [place] [address]Dr. Elba Anthony EGFR-NON AF NIUEAN 25 mL/min/1.73m2 Critically low >=60 [facility] Comment on above: Performed By: #### C MP, CRP ####[facility] Khaamkexhi88[address] [place], [place] [address]Dr. Elba Anthony Globulin (S) [Mass/Vol] 3.9 g/dL Normal [facility] Comment on above: Performed By: #### C MP, CRP ####[facility] Ktphouzruz7747 [place] [id number]. Elba Anthony Glucose [Mass/Vol] 133 mg/dL Critically high 74-106 [facility] Comment on above: Performed By: #### C MP, CRP ####[facility] Wgjxyjbdee8839 [place] [id number]. Nereydasiobhan Anthony Potassium [Moles/Vol] 4.4 mmol/L Normal 3.4-5.[address] [facility] Comment on above: Performed By: #### C MP, CRP ####[facility] Capookjmlq2772 [place] [address]Dr. Elba Anthony Protein [Mass/Vol] 6.8 g/dL Normal 6.1-8.[address] [facility] Comment on above: Performed By: #### C MP, CRP ####[facility] Gpqgrggtxi4608 [place] [address]Dr. Elba Anthony Sodium [Moles/Vol] 134 mmol/L Critically low 137-145 Th [facility] Comment on above: Performed By: #### C MP, CRP ####[facility] Pdkgcosblw6310 [place] [address]Dr. Elba Anthony Urea nitrogen [Mass/Vol] 47.0 mg/dL Critically high 7.0-18.[address] [facility] Comment on above: Performed By: #### C MP, CRP ####[facility] Uwwgxpvjza[address] [place], [place] [address]Dr. Elba Anthony Urea nitrogen/Creatinine [Mass ratio] 18.7 mg/mg Normal [facility] Comment on above: Performed By: #### C MP, CRP ####[facility] Zstxcyiuco8909 [place] [id number]. Elba Anthony T3, TOTAL (TRIIODOTHYRONINE) on 12-13-2021 T3, TOTAL 66 ng/dL Critically low 71-[address] [facility] Comment on above: Performed By: #### T 3TOTAL ####[facility] Bndorteeai69[address] [place], [place] [address]Dr. Elba Anthony US KIDNEYS BLADDERon 022 US KIDNEYS BLADDER Normal [facility] BLOOD CULTURE ID PANELon A. baumannii Not detected Normal [facility] Comment on above: Performed By: #### B PABLO ####[facility] Rrdxuxsesi3818 [place], [place] [address]Ii. Elba Anthony BCID CONTROLS PASSED Normal [facility] Comment on above: Performed By: #### B PABLO ####[facility] Fzkvxsspcm6591 [place] [phone]. Elba Raj BCIDBTHD BLOOD CULTURE BOTTLE INFORMATION Normal [facility] Comment on above: Performed By: #### B PABLO ####[facility] Hzajmflian[address] [place] [address]Dr. Elba Anthony BCIDHD1 ANTIMICROBIAL RESIST ANCE GENES Normal [facility] Comment on above: Performed By: #### B PABLO ####[facility] Ajsctlyede[address] [place] [address]Dr. Nereydasiobhan Raj BCIDHD2 SEE BELOW Normal [facility] Comment on above: Result Comment: KPC- carbapenem resistance gene, mecA- methecillin resistance gene, van A/B- vancomycin resistance gene Note: Antimicrobial resitance can occur via multiple mechanisms. A Not Detected result for the FilmArray antomicrobial resistance gene assays does not indicate antimicrobial susceptibility. Subculturing is required for specis identificationand susceptibility testing of isolates. Performed By: #### B PABLO ####[facility] Opgtxglyrb[address] [place] [address]Dr. Nereydasiobhan Raj BCIDHD3 Positive Normal [facility] Comment on above: Performed By: #### B PABLO ####[facility] Wgvbwfhhsk5[address] [place] [id number]. Elba Anthony BCIDHD4 Negative Normal [facility] Comment on above: Performed By: #### B PABLO ####[facility] Jcobbgilvu16[address] [place] [address]Dr. Nereydasiobhan Raj BCIDHD5 YEAST Normal [facility] Comment on above: Performed By: #### B PABLO ####[facility] Avpscfqngh90[address] [place] [address]Dr. Elba Anthony BCIDHD6 SEE BELOW [facility] Comment on above: Result Comment: Note : All genus and species BCID FilmArray results will be verified post subculturing via Maldi-Tof MS testing methodology. Performed By: #### B PABLO ####[facility] Cmqjjnpyfl5[address] [place] [address]Dr. Elba Anthony Bottle Set: Set 1 Normal [facility] Comment on above: Performed By: #### B PABLO ####[facility] Nfsdltrotr64[address] [place], [place] [address]Dr. Elba Anthony Bottle: Aerobic Normal [facility] Comment on above: Performed By: #### B PABLO ####[facility] Idsrkjpigy12[address] [place], [place] [address]Dr. Elba Anthony Lorelei albicans Not detected Normal [facility] Comment on above: Performed By: #### B PABLO ####[facility] Kssxqqnyaf26[address] [place], [place] [address]Dr. Elba Anthony Lorelei glabrata Not detected Normal [facility] Comment on above: Performed By: #### B PABLO ####[facility] Kouilsxedq377[address] [place], [place] [address]Dr. Elba [facility] Lorelei Krusei Not detected Normal [facility] Comment on above: Performed By: #### B PABLO ####[facility] Hkarodeqda9268[address] [place], [place] [address]Dr. Elba [facility] Lorelei Parapsilosis Not detected Normal [facility] Comment on above: Performed By: #### B PABLO ####[facility] Dwovyedwdx2933[address] [place], [place] [address]Dr. Elba Anthony Lorelei Tropicalis Not detected Normal [facility] Comment on above: Performed By: #### B PABLO ####[facility] Oijmaowxia918[address] [place], [place] [address]Dr. Yisiobhan Anthony E. Cloacae complex Not detected Normal [facility] Comment on above: Performed By: #### B PABLO ####[facility] Xjwemxoscj119[address] [place], [place] [address]Dr. Yilan Anthony Enterobacteriaceae Not detected Normal [facility] Comment on above: Performed By: #### B PABLO ####[facility] Jszvvhoqij0688 [place] [address]Dr. Nereydalan Anthony Enterococcus Not detected Normal [facility] Comment on above: Performed By: #### B PABLO ####[facility] Uersnjryxi6657[address] [place], [place] [address]Dr. Elba Anthony Escheria coli Not detected Normal [facility] Comment on above: Performed By: #### B PABLO ####[facility] Tlmbxeszlp6325[address] [place], [place] [address]Dr. Elba Anthony K. oxytoca Not detected Normal [facility] Comment on above: Performed By: #### B PABLO ####[facility] Okgopkkbiz8533[address] [place], [place] [address]Dr. Elba Anthony K. pneumoniae Not detected Normal [facility] Comment on above: Performed By: #### B PABLO ####[facility] Hhrpyvehsf9[address] [place], [place] [address]Dr. Elba Anthony KPC Resistant Gene Not detected Normal [facility] Comment on above: Performed By: #### B PABLO ####[facility] Qyvtecmvyr00[address] [place], [place] [address]Dr. Elba Anthony List. monocytogenes Not detected Normal [facility] Comment on above: Performed By: #### B PABLO ####[facility] Omtfdxoexk4027[address] [place], [place] [address]Dr. Elba Anthony mecA Resistant Gene Not Applicable Normal [facility] Comment on above: Performed By: #### B PABLO ####[facility] Fnoypmdkut44[address] [place], [place] [address]Dr. Elba Anthony Proteus Not detected Normal [facility] Comment on above: Performed By: #### B PABLO ####[facility] Fujtpwcwuq5594[address] [place], [place] [address]Dr. Elba Anthony Pseud. aeruginosa Detected Critically abnormal [facility] Comment on above: Performed By: #### B PABLO ####[facility] Owexttjpat7[address] [place], [place] [address]Dr. Elba Anthony Seratia marcescens Not detected Normal [facility] Comment on above: Performed By: #### B PABLO ####[facility] Jezafxmplt7446[address] [place], [place] [address]Dr. Elba Anthony Site: Left hand Normal [facility] Comment on above: Performed By: #### B PABLO ####[facility] Mzruvbcywe07[address] [place], [place] [address]Dr. Elba Anthony Staph. aureus Not detected Normal [facility] Comment on above: Performed By: #### B PABLO ####[facility] Dccyuawzed5406[address] [place], [place] [address]Dr. Nereydasiobhan Anthony Staphylococcus Not detected Normal [facility] Comment on above: Performed By: #### B PABLO ####[facility] Cuzhxloyfu7622[address] [place], [place] [address]Dr. Elba Anthony Strep. agalactiae Not detected Normal [facility] Comment on above: Performed By: #### B PABLO ####[facility] Cwnfuqwvaw13[address] [place], [place] [address]Dr. Elba Anthony Strep. pneumoniae Not detected Normal [facility] Comment on above: Performed By: #### B PABLO ####[facility] Doeplttjpt2536[address] [place], [place] [address]Dr. Elba Anthony Strep. pyogenes Not detected Normal [facility] Comment on above: Performed By: #### B PABLO ####[facility] Ftcchwytzl9[address] [place], [place] [address]Dr. Nereydasiobhan Anthony Streptococcus Not detected Normal [facility] Comment on above: Performed By: #### B PABLO ####[facility] Urlxzepmzk[address] [place], [place] [address]Dr. Elba Anthony Soledad/B Resist. Gene Not Applicable Normal [facility] Comment on above: Performed By: #### B PABLO ####[facility] Qwwwqoxcqt0628[address] [place], [place] [address]Dr. Elba Anthony BNPon 12-12-2021 Natriuretic peptide B (Bld) [Mass/Vol] 74027.0 pg/mL Critically high <=900.[address] [facility] Comment on above: Result Comment: test repeated critical value verified Performed By: #### B MP, BNP, HSTROPN ####[facility] Jqgelogbau[address] [place] [id number]. Elba Anthony CARDIAC FADY 3-6on 2 CK [Catalytic activity/Vol] 29 U/L Critically low 55-[address] [facility] Comment on above: Performed By: #### C MREP ####[facility] Ymcpodzury[address] [place] [address]Dr. Elba Anthony CK.MB [Mass/Vol] 1.26 ng/mL Normal <=2.[address] [facility] Comment on above: Performed By: #### C MREP ####[facility] Ywwscbcmwx7635 [place] [address]Dr. Elba Anthony HSTROP 27.4 pg/mL Normal 4.0-42.2 [facility] Comment on above: Result Comment: CUT- OFF POINTS HAVE BEEN ESTABLISHED BASED ON THE FOURTH UNIVERSAL DEFINITIONS OF MYOCARDIALINFARCTION. THE UPPER REFERENCE LIMIT (URL) OF TROPONIN, DEFINED THE 99TH PERCENTILE OFcTnI DISTRIBUTION IN A REFERENCE POPULATION, HAS BEEN CONFIRMED THE DECISION THRESHOLDFOR NM DIAGNOSIS. Performed By: #### C MREP ####[facility] Ieakkhzwfn18[address] [place] [address]Dr. Elba Anthony CK [Catalytic activity/Vol] 23 U/L Critically low 55-[address] [facility] Comment on above: Performed By: #### C MREP ####[facility] Dljsyovmkf7073 [place] [address]Dr. Elab Anthony CK.MB [Mass/Vol] 1.41 ng/mL Normal <=2.37 [facility] Comment on above: Performed By: #### C MREP ####[facility] Aearwfvcpe9[address] [place], [place] [address]Dr. Elba Anthony HSTROP 27.2 pg/mL Normal 4.0-42.2 [facility] Comment on above: Result Comment: CUT- OFF POINTS HAVE BEEN ESTABLISHED BASED ON THE FOURTH UNIVERSAL DEFINITIONS OF MYOCARDIALINFARCTION. THE UPPER REFERENCE LIMIT (URL) OF TROPONIN, DEFINED THE 99TH PERCENTILE OFcTnI DISTRIBUTION IN A REFERENCE POPULATION, HAS BEEN CONFIRMED THE DECISION THRESHOLDFOR NM DIAGNOSIS. Performed By: #### C MREP ####[facility] Wqxyutgbqz55[address] [place] [address]Dr. Elba Anthony CBC W MANUAL DIFFon 12-13-19 22 ATYPICAL LYMPH # Normal [facility] Comment on above: Performed By: #### C ADALGISA ####[facility] Gkbwmsfsbw7[address] [place] [address]Dr. Elba Anthony ATYPICAL LYMPH % Normal [facility] Comment on above: Performed By: #### C ADALGISA ####[facility] Vqlnlaiggn3143 [place] [address]Dr. Elba Anthony BAND # Normal 0.0-0.3 [facility] Comment on above: Performed By: #### C ADALGISA ####[facility] Uicpcapwjl[address] [place], [place] [address]Dr. Elba Anthony BAND % Normal 0-5 [facility] Comment on above: Performed By: #### C ADALGISA ####[facility] Ulupgdkpbm38[address] [place], [place] [address]Dr. Elba Anthony BASOM # 0.00 103/ul Normal 0.00-0.10 [facility] Comment on above: Performed By: #### C ADALGISA ####[facility] Qkotdmdlji29[address] [place], [place] [address]Dr. Elba Anthony BASOM % 0.0 % Critically low 0.2-2.0 [facility] Comment on above: Performed By: #### C ADALGISA ####[facility] Jnzmyejnbj[address] [place], [place] [address]Dr. Elba Anthony BLAST # Normal [facility] Comment on above: Performed By: #### C ADALGISA ####[facility] Wjdpgbfkyy[address] [place], [place] [address]Dr. Elba Anthony BLAST % Normal [facility] Comment on above: Performed By: #### C ADALGISA ####[facility] Eoevwjpiar645[address] [place], [place] [address]Dr. Elba Anthony CORRECTED WBC Normal 4.0-11.0 [facility] Comment on above: Performed By: #### C ADALGISA ####[facility] Pttdecwgco8053 [place], [place] [address]Ze. Elba Anthony EOS # 0.00 103/ul Normal 0.00-0.70 [facility] Comment on above: Performed By: #### C ADALGISA ####[facility] Ffzbmxynxu4445 [place], [place] [address]Im. Elba Anthony EOS% 0.0 % Critically low 0.9-7.0 [facility] Comment on above: Performed By: #### C ADALGISA ####[facility] Gpfsylygto7629 [place], [place] [address]Gg. lEba Anthony HCT 34.1 % Critically low 42.0-54.0 [facility] Comment on above: Performed By: #### C ADALGISA ####[facility] Evcbekguql9808 [place] [id number]. Elba Anthony HGB 10.1 g/dl Critically low 14.0-18.[address] [facility] Comment on above: Performed By: #### C ADALGISA ####[facility] Fsrukykiod7914 [place], [place] [address]Hd. Elba Anthony LYMPHM # 0.32 103/ul Critically low 1.20-3.[address] [facility] Comment on above: Performed By: #### C ADALGISA ####[facility] Yilwtdqruq8948 [place] [id number]. Elba Anthony LYMPHM% 3.0 % Critically low 20.5-60.0 [facility] Comment on above: Performed By: #### C ADALGISA ####[facility] Vyirxoopmt7050 [place], [place] [address]Av. Elba Anthony MCH 25.5 pg Critically low 25.9-34.0 [facility] Comment on above: Performed By: #### C ADALGISA ####[facility] Yunivgjzxf2691 [place] [id number]. Elba Anthony MCHC 29.6 g/dl Critically low 29.9-35.2 [facility] Comment on above: Performed By: #### C ADALGISA ####[facility] Qrcbbovxgm1024 [place] [id number]. Elba Anthony MCV 86.1 fL Normal 80.0-94.0 [facility] Comment on above: Performed By: #### C ADALGISA ####[facility] Orktexgurk8849 [place] [id number]. Elba Anthony METAMYELOCYTE # Normal [facility] Comment on above: Performed By: #### C ADALGISA ####[facility] Gtwvjjxppq9648 [place] [id number]. Elba Anthony METAMYELOCYTE % Normal [facility] Comment on above: Performed By: #### C ADALGISA ####[facility] Wpitaevnau9[address] [place] [address]Dr. Elba Anthony MONOM# 0.11 103/ul Critically low 0.30-0.[address] [facility] Comment on above: Performed By: #### C ADALGISA ####[facility] Yieyaqjrfh3552 [place] [id number]. Elba Anthony MONOM% 1.0 % Critically low 1.7-12.[address] [facility] Comment on above: Performed By: #### C ADALGISA ####[facility] Wqlcrlqgrc[address] [place], [place] [address]Dr. Elba Anthony MPV 10.4 fL Normal 9.5-13.[address] [facility] Comment on above: Performed By: #### C ADALGISA ####[facility] Ivynnvwewi6970 [place] [id number]. Elba Anthony MYELOCYTE # Normal [facility] Comment on above: Performed By: #### C ADALGISA ####[facility] Sitpadonfd1938 [place] [phone]. Elba Anthony MYELOCYTE % Normal [facility] Comment on above: Performed By: #### C ADALGISA ####[facility] Yirugikdyd9057 [place] [phone]. Elba Anthony NRBC Normal [facility] Comment on above: Performed By: #### C ADALGISA ####[facility] Kiknuembdi5104 [place] [phone]. Elba Anthony OVALOCYTES SLIGHT Normal [facility] Comment on above: Performed By: #### C ADALGISA ####[facility] Skpdsodbkk3365 [place] [phone]. Elba Anthony PLT 154 103/ul Normal 150-450 [facility] Comment on above: Performed By: #### C ADALGISA ####[facility] Eakzaphzsp9228 [place] [phone]. Elba Anthony POIKILOCYTOSIS 1+ Normal [facility] Comment on above: Performed By: #### C ADALGISA ####[facility] Ttaijtathw6381 [place] [address]Dr. Elba Anthony RBC 3.96 106/ul Critically low 4.70-6.10 [facility] Comment on above: Performed By: #### C ADALGISA ####[facility] Ywgnmwvjgx[address] [place], [place] [address]Dr. Elba Anthony RDW 19.0 % Critically high 11.0-15.[address] [facility] Comment on above: Performed By: #### C ADALGISA ####[facility] Hjkceqbwcn6[address] [place], [place] [address]Dr. Elba Anthony SEG # 10.37 103/ul Critically high 1.40-6.[address] [facility] Comment on above: Performed By: #### C ADALGISA ####[facility] Cshdwgwcee8[address] [place], [place] [address]Dr. Elba Anthony SEG % 96.0 % Critically high 43.0-75.0 [facility] Comment on above: Performed By: #### C ADALGISA ####[facility] Zxfepaocxw9005 [place] [id number]. Elba Anthony TEAR DROP CELLS SLIGHT Normal [facility] Comment on above: Performed By: #### C ADALGISA ####[facility] Jkxzrkbaac7326 [place] [address]Dr. Elba Anthony WBC 10.8 103/ul Normal 4.0-11.0 [facility] Comment on above: Performed By: #### C ADALGISA ####[facility] Nowvpfnari0365 [place] [phone]. Elba Anthony CRPon 12-12-2021 CRP 3.1 mg/dL Critically high <=1.0 [facility] Comment on above: Performed By: #### C RP, TSH, T4 ####[facility] Kliodotryc8973 [place], [place] [address]Ft. Elba Anthony CULTURE BLOODon 12-12-2021 Microscopic examination of blood, culture Culture Observations: Positive blood culture. Aerobic & anaerobic bottles. BCID=Pseudomonas aeruginosa Culture Observations: Sending to [facility] for workup. Normal [facility] Comment on above: Performed By: #### B LDCX2 ####[facility] Wtdsjrddje9[address] [place] [address]Dr. Elba Anthony Microscopic examination of blood, culture Culture Observations: Positive blood culture. Aerobic bottle. BCID= Pseudomonas aeruginosa. Culture Observations: Sending to [facility] for workup. Culture Observations: NO GROWTH AT 5 DAYS. ANAEROBIC BOTTLE Normal [facility] Comment on above: Performed By: #### B LDCX1 ####[facility] Erkqlntnct[address] [place], [place] [id number]. Elba Anthony Covid-19 PCR (CVDTB)on SARS-CoV-2 (COVID-19) RNA ELIZABETH+probe Ql (Unsp spec) Not detected Normal NOT DETECTED [facility] Comment on above: Result Comment: When diagnostic testing is negative, the possibility of a false negative should be considered inthe context of a patient's recent exposures and the presence of clinical signs and symptomsconsistent with SARS-CoV-2.This test is not yet approved or cleared by the [place] Food and Drug Administration (FDA).This test was developed by [employer], [place], [place]. The performance characteristics ofthis test were validated by [facility]. The results are not intended to beused as the sole means for clinical diagnosis or patient management decisions. The [place] [facility] is authorized under Clinical Laboratory Improvement Amendments (CLIA) to perform high-complexity testing.This test is not yet approved or cleared by the [place] FDA. When there are no FDA-approved or cleared tests available, and other criteria are met, FDA can make tests available under an emergency access mechanism called an Emergency Use Authorization (EUA). The EUA for this test is supported by the [place] of Health and Human Service's declaration that [...] be used). Performed By: #### C VDTBH ####[facility] Udxfzrouwp[address] [place], [place] [address]Dr. Elba Anthony LACTATE/LACTIC ACIDon 2021 Lactate [Moles/Vol] 2.0 mmol/L Normal 0.7-2.[address] [facility] Comment on above: Performed By: #### L ACT ####[facility] Drvdmpkoxr0984[address] [place], [place] [address]Dr. Elba Anthony Lactate [Moles/Vol] 1.7 mmol/L Normal 0.7-2.[address] [facility] Comment on above: Performed By: #### L ACT ####[facility] Tsiomdlcno[address] [place], [place] [address]Dr. Elba Anthony PROF CHEM 8 (BAS METB)on Anion gap [Moles/Vol] 14.7 mmol/L Normal [facility] Comment on above: Performed By: #### B MP, BNP, HSTROPN ####[facility] Yrcwivnzlm[address] [place], [place] [address]Dr. Elba Anthony Calcium [Mass/Vol] 8.6 mg/dL Normal 8.5-10.[address] [facility] Comment on above: Performed By: #### B MP, BNP, HSTROPN ####[facility] Eaxjojmavm[address] [place], [place] [address]Dr. Elba Anthony Chloride [Moles/Vol] 102 mmol/L Normal 98-107 [facility] Comment on above: Performed By: #### B MP, BNP, HSTROPN ####[facility] Nukhmxyonx9[address] [place], [place] [address]Dr. Elba Anthony CO2 [Moles/Vol] 25.4 mmol/L Normal 22.0-30.[address] [facility] Comment on above: Performed By: #### B MP, BNP, HSTROPN ####[facility] Otzvwwcddl3[address] [place] [address]Dr. Elba Anthony Creatinine [Mass/Vol] 2.29 mg/dL Critically high 0.66-1.[address] [facility] Comment on above: Performed By: #### B MP, BNP, HSTROPN ####[facility] Fagnaraqom6[address] [place] [address]Dr. Elba Raj EGFR-AF NIUEAN 35 mL/min/1.73m2 Critically low >=60 [facility] Comment on above: Performed By: #### B MP, BNP, HSTROPN ####[facility] Kfxrehlmgx6231 [place] [address]Dr. Elba Anthony EGFR-NON AF NIUEAN 28 mL/min/1.73m2 Critically low >=60 [facility] Comment on above: Performed By: #### B MP, BNP, HSTROPN ####[facility] Fmdexpkxjn[address] [place], [place] [address]Dr. Elba Anthony Glucose [Mass/Vol] 130 mg/dL Critically high 74-106 [facility] Comment on above: Performed By: #### B MP, BNP, HSTROPN ####[facility] Jraibkgist7353 [place] [address]Dr. Nereydasiobhan Anthony Potassium [Moles/Vol] 4.1 mmol/L Normal 3.4-5.0 [facility] Comment on above: Performed By: #### B MP, BNP, HSTROPN ####[facility] Cqeyqckoxv[address] [place], [place] [address]Dr. Nereydasiobhan Anthony Sodium [Moles/Vol] 138 mmol/L Normal 137-145 [facility] Comment on above: Performed By: #### B MP, BNP, HSTROPN ####[facility] Ajcmwvsyiv16[address] [place] [address]Dr. Elba Anthony Urea nitrogen [Mass/Vol] 43.0 mg/dL Critically high 7.0-18.0 [facility] Comment on above: Performed By: #### B MP, BNP, HSTROPN ####[facility] Xwehwbswjn7315 [place] [address]Dr. Elba Anthony Urea nitrogen/Creatinine [Mass ratio] 18.8 mg/mg Normal [facility] Comment on above: Performed By: #### B MP, BNP, HSTROPN ####[facility] Ekhtioytky6819 [place] [address]Dr. Elba Anthony T4on 12-12-2021 T4 [Mass/Vol] 11.10 ug/dL Critically high 5.53-11.00 [facility] Comment on above: Performed By: #### C RP, TSH, T4 ####[facility] Molbhehqzl8359 [place] [address]Dr. Elba Anthony TROPONIN, HIGH SENSITIVITYon 12-12-2021 HSTROP 26.2 pg/mL Normal 4.0-42.2 [facility] Comment on above: Result Comment: CUT- OFF POINTS HAVE BEEN ESTABLISHED BASED ON THE FOURTH UNIVERSAL DEFINITIONS OF MYOCARDIALINFARCTION. THE UPPER REFERENCE LIMIT (URL) OF TROPONIN, DEFINED THE 99TH PERCENTILE OFcTnI DISTRIBUTION IN A REFERENCE POPULATION, HAS BEEN CONFIRMED THE DECISION THRESHOLDFOR NM DIAGNOSIS. Performed By: #### B MP, BNP, HSTROPN ####[facility] Lohlggedjy7[address] [place] [address]Dr. Elba Anthony TSHon 12-12-2021 TSH 1.233 uIU/mL Normal 0.470-4.680 [facility] Comment on above: Performed By: #### C RP, TSH, T4 ####[facility] Dgybuonwah4[address] [place] [address]Dr. Elba Anhtony TSH RANGE SEE BELOW Normal [facility] Comment on above: Result Comment: <0.3 4 UIU/ml HYPERTHYROID 0.34-5.60 UIU/ml EUTHYROID >5.60 UIU/ml HYPOTHYROID Performed By: #### C RP, TSH, T4 ####[facility] [id number] [place], [place] [address]LxLatoya Anthony US ARLIN DOP LEG RTon 12-13-19 22 US ARLIN DOP LEG RT Normal [facility] XR TIB_FIB RT 2Von 2 XR TIB_FIB RT 2V Normal [facility] APTTon 08-01-2021 aPTT Coag (Bld) [Time] 34.5 s Normal 25.0-35.[address] [facility] Comment on above: Result Comment: ALL RESULTS [...] PURPOSE. Performed By: #### 5 0103 #### [facility] [address] [facility] [place] [address], [facility] BASIC METABOLIC PANELon 11- Calcium [Mass/Vol] 8.6 mg/dL Normal 8.6-10.[address] [facility] Comment on above: Order Comment: No: D o not add to previous draw Performed By: #### 3 2044 #### [facility] [address] [facility] [place] [address], [facility] Chloride [Moles/Vol] 108 mmol/L High 98-[address] [facility] Comment on above: Order Comment: No: D o not add to previous draw Performed By: #### 3 2044 #### [facility] [address] [place] [address], [place] CO2 [Moles/Vol] 20 mmol/L Low 21-[address] [facility] Comment on above: Order Comment: No: D o not add to previous draw Performed By: #### 3 2044 #### [facility] [address] [place] [address], [facility] Creatinine [Mass/Vol] 2.66 mg/dL High 0.70-1.[address] [facility] Comment on above: Order Comment: No: D o not add to previous draw Performed By: #### 3 2044 #### [facility] [address] [place] [address], [place] eGFR- 29 ml/min/1.73sq m Abnormal >[address] [facility] Comment on above: Order Comment: No: D o not add to previous draw Performed By: #### 3 2044 #### [facility] [address] [place] [address], [place] eGFR- non- 24 ml/min/1.73sq m Abnormal >[address] [facility] Comment on above: Order Comment: No: D o not add to previous draw Performed By: #### 3 2044 #### [facility] [address] [place] [address], [place] Glucose [Mass/Vol] 125 mg/dL High 70-[address] [facility] Comment on above: Order Comment: No: D o not add to previous draw Performed By: #### 3 2044 #### [facility] [address] [place] [address], [place] Potassium [Moles/Vol] 4.4 mmol/L Normal 3.5-5.[address] [facility] Comment on above: Order Comment: No: D o not add to previous draw Performed By: #### 3 2044 #### [facility] [address] [place] [address], [place] Sodium [Moles/Vol] 138 mmol/L Normal 136-[address] [facility] Comment on above: Order Comment: No: D o not add to previous draw Performed By: #### 3 2044 #### [facility] [address] [place] [address], [place] Urea nitrogen [Mass/Vol] 54 mg/dL High 7-[address] [facility] Comment on above: Order Comment: No: D o not add to previous draw Performed By: #### 3 2044 #### [facility] [address] [place] [address], [place] Calcium [Mass/Vol] 8.5 mg/dL Low 8.6-10.[address] [facility] Comment on above: Order Comment: No: D o not add to previous draw Performed By: #### 5 0103 #### [facility] [address] [place] [address], [place] Chloride [Moles/Vol] 107 mmol/L Normal 98-[address] [facility] Comment on above: Order Comment: No: D o not add to previous draw Performed By: #### 5 0103 #### [facility] [address] [place] [address], [place] CO2 [Moles/Vol] 23 mmol/L Normal 21-[address] [facility] Comment on above: Order Comment: No: D o not add to previous draw Performed By: #### 5 0103 #### [facility] [address] [place] [address], [place] Creatinine [Mass/Vol] 2.86 mg/dL High 0.70-1.[address] [facility] Comment on above: Order Comment: No: D o not add to previous draw Performed By: #### 5 0103 #### [facility] [address] [place] [address], [place] eGFR- 27 ml/min/1.73sq m Abnormal >[address] [facility] Comment on above: Order Comment: No: D o not add to previous draw Performed By: #### 5 0103 #### [facility] [address] [place] [address], [place] eGFR- non- 22 ml/min/1.73sq m Abnormal >[address] [facility] Comment on above: Order Comment: No: D o not add to previous draw Performed By: #### 5 0103 #### [facility] [address] [place] [address], [place] Glucose [Mass/Vol] 114 mg/dL High 70-[address] [facility] Comment on above: Order Comment: No: D o not add to previous draw Performed By: #### 5 0103 #### [facility] [address] [place] [address], [facility] Potassium [Moles/Vol] 4.5 mmol/L Normal 3.5-5.[address] [facility] Comment on above: Order Comment: No: D o not add to previous draw Performed By: #### 5 0103 #### [facility] [address] [place] [address], [facility] Sodium [Moles/Vol] 138 mmol/L Normal 136-[address] [facility] Comment on above: Order Comment: No: D o not add to previous draw Performed By: #### 5 0103 #### [facility] [address] [facility] Urea nitrogen [Mass/Vol] 58 mg/dL High 7-[address] [facility] Comment on above: Order Comment: No: D o not add to previous draw Performed By: #### 5 0103 #### [facility] [address] [place] [address], [facility] CBC W/DIFFon 08-01-2021 ABS IMM GRANS 0.0 10*3/uL Normal 0.0-0.[address] [facility] Comment on above: Order Comment: No: D o not add to previous draw Performed By: #### 5 0103 #### [facility] [address] [place] [address], [facility] ABS NEUTROPHILS 5.7 10*3/uL Normal 1.6-7.[address] [facility] Comment on above: Order Comment: No: D o not add to previous draw Performed By: #### 5 0103 #### [facility] [address] [place] [address], [facility] Basophils (Bld) [#/Vol] 0.0 10*3/uL Normal 0.0-0.[address] [facility] Comment on above: Order Comment: No: D o not add to previous draw Performed By: #### 5 0103 #### [facility] [address] [place] [address], [facility] Basophils/100 WBC (Bld) 0.4 % Normal 0.0-1.[address] [facility] Comment on above: Order Comment: No: D o not add to previous draw Performed By: #### 5 0103 #### [facility] [address] [place] [address], [facility] Eosinophils (Bld) [#/Vol] 0.0 10*3/uL Normal 0.0-0.[address] [facility] Comment on above: Order Comment: No: D o not add to previous draw Performed By: #### 5 0103 #### [facility] [address] [place] [address], [facility] Eosinophils/100 WBC (Bld) 0.6 % Normal 0.0-6.[address] [facility] Comment on above: Order Comment: No: D o not add to previous draw Performed By: #### 5 0103 #### [facility] [address] [place] [address], [facility] Erythrocyte distribution width (RBC) [Ratio] 14.8 % Normal 11.5-15.[address] [facility] Comment on above: Order Comment: No: D o not add to previous draw Performed By: #### 5 0103 #### [facility] [address] [place] [address], [facility] Hematocrit (Bld) [Volume fraction] 37.0 % Low 39.0-50.[address] [facility] Comment on above: Order Comment: No: D o not add to previous draw Performed By: #### 5 0103 #### [facility] [address] [place] [address], [facility] Hemoglobin (Bld) [Mass/Vol] 11.4 g/dL Low 13.0-17.[address] [facility] Comment on above: Order Comment: No: D o not add to previous draw Performed By: #### 5 0103 #### [facility] [address] [facility] [place] [address], [facility] IMMATURE GRANS 0.4 % Normal 0.0-1.[address] [facility] Comment on above: Order Comment: No: D o not add to previous draw Performed By: #### 5 0103 #### [facility] [address] [place] [address], [facility] Lymphocytes (Bld) [#/Vol] 0.4 10*3/uL Low 1.2-4.[address] [facility] Comment on above: Order Comment: No: D o not add to previous draw Performed By: #### 5 0103 #### [facility] [address] [facility] [place] [address], [facility] Lymphocytes/100 WBC (Bld) 5.6 % Low 20.0-45.[address] [facility] Comment on above: Order Comment: No: D o not add to previous draw Performed By: #### 5 0103 #### [facility] [address] [place] [address], [facility] MCH (RBC) [Entitic mass] 27.9 pg Normal 27.0-33.[address] [facility] Comment on above: Order Comment: No: D o not add to previous draw Performed By: #### 5 0103 #### [facility] [address] [place] [id number], [facility] MCHC (RBC) [Mass/Vol] 30.8 g/dL Low 32.0-35.[address] [facility] Comment on above: Order Comment: No: D o not add to previous draw Performed By: #### 5 0103 #### [facility] [address] [place] [address], [facility] MCV (RBC) [Entitic vol] 90.5 fL Normal 82.0-98.[address] [facility] Comment on above: Order Comment: No: D o not add to previous draw Performed By: #### 5 0103 #### [facility] [address] [place] [address], [facility] Monocytes (Bld) [#/Vol] 0.6 10*3/uL Normal 0.1-1.[address] [facility] Comment on above: Order Comment: No: D o not add to previous draw Performed By: #### 5 0103 #### [facility] [address] [place] [address], [facility] MONOS 8.7 % Normal 5.0-12.[address] [facility] Comment on above: Order Comment: No: D o not add to previous draw Performed By: #### 5 0103 #### [facility] [address] [place] [address], [facility] Neutrophils/100 WBC (Bld) 84.3 % High 40.0-72.[address] [facility] Comment on above: Order Comment: No: D o not add to previous draw Performed By: #### 5 0103 #### [facility] [address] [facility] [place] [address], [facility] Nucleated RBC/100 WBC (Bld) [Ratio] 0 % Normal 0-[address] [facility] Comment on above: Order Comment: No: D o not add to previous draw Performed By: #### 5 0103 #### [facility] [address] [facility] [place] [address], [facility] PLAT CNT 144 10*3/uL Low 150-[address] [facility] Comment on above: Order Comment: No: D o not add to previous draw Performed By: #### 5 0103 #### [facility] [address] [place] [address], [facility] RBC (Bld) [#/Vol] 4.09 10*6/uL Low 4.20-5.[address] [facility] Comment on above: Order Comment: No: D o not add to previous draw Performed By: #### 5 0103 #### [facility] [address] [place] [address], [facility] WBC (Bld) [#/Vol] 6.75 10*3/uL Normal 4.00-10.[address] [facility] Comment on above: Order Comment: No: D o not add to previous draw Performed By: #### 5 0103 #### [facility] [address] [place], [place] [id number] [place] [address] CHEST AND LATERALon 08-01-[address] [facility] Department of Radiology [address] [place] [address] Patient Name: MAN PATEL : 1950 Sex: M Age: Race: White Pt. Location: [facility] Patient Status: I Ordered Date: 08/01/2021 [...] pneumothorax. Electronically signed: Dilcia Hernandez. Transcribed by: [email or web address], User Resident: Electronically Signed by: DILCIA HERNANDEZ @ 08/01/2021 08:[address] [facility] Comment on above: Order Comment: Check Pacemaker/AICD Lead Position, Chest X-ray PA \EANDE\ LAT in Dept ;DO NOT lift affected arm above shoulder. S/P pacemaker/ICD implant. Verify lead placement CPKon 08-01-2021 CK [Catalytic activity/Vol] 576 U/L High 30-[address] [facility] Comment on above: Performed By: #### 5 0103 #### [address] Cardiovascular Lab Reporton 08-01-2021 Cardiovascular Lab Report [facility] Patient Name: [facility] Man MR #: [id number] Department of Physician: Inocencio Franks M.D. Medicine Service Date: 07/31/2021 Division of Birthdate: 1950 Cardiology Room #: 5AB [id number] Adult Cardiovascular Services [place] [address] Cardiovascular Laboratory Report INDICATION FOR PERMANENT PACEMAKER [...] P/Inocencio Franks M.D. Date Trans: 08/01/2021 05:31 A/surekha [id number] Normal [facility] MAGNESIUM BLOODon 08-01-2021 Magnesium [Mass/Vol] 2.2 mg/dL Normal 1.9-2.[address] [facility] Comment on above: Order Comment: No: D o not add to previous draw Performed By: #### 5 0103 #### [facility] [address] PHOSPHORUS BLOODon 1 Phosphate [Mass/Vol] 2.9 mg/dL Normal 2.5-5.[address] [facility] Comment on above: Order Comment: No: D o not add to previous draw Performed By: #### 5 0103 #### [facility] [address] PROTHROMBIN TIMEon 1 INR Coag (PPP) [Relative time] 1.54 {INR} High 0.91-1.[address] [facility] Comment on above: Order Comment: No: [...] 1995;108:231S-246S. Performed By: #### 5 0103 #### [facility] [address] PT Coag (PPP) [Time] 18.4 s High 12.3-14.8 [facility] Comment on above: Order Comment: No: D o not add to previous draw Result Comment: ALL RESULTS MUST BE INTERPRETED WITH RESPECT TO BLOOD DRAWING ARTIFACT OR DILUTION ERROR OF ANTICOAGULANT AT THE TIME OF SAMPLING. Performed By: #### 5 0103 #### [facility] [address] [facility]. [address] INR Coag (PPP) [Relative time] 1.68 {INR} High 0.91-1.[address] [facility] Comment on above: Result Comment: [facility] P RECOMMENDED INR FOR WARFARIN THERAPY [...] 1995;108:231S-246S. Performed By: #### 5 0103 #### [facility] [address] PT Coag (PPP) [Time] 19.7 s High 12.3-14.[address] [facility] Comment on above: Result Comment: ALL RESULTS MUST BE INTERPRETED WITH RESPECT TO BLOOD DRAWING ARTIFACT OR DILUTION ERROR OF ANTICOAGULANT AT THE TIME OF SAMPLING. Performed By: #### 5 0103 #### [facility] [address] URIC ACID BLOODon 08-01-2021 Urate [Mass/Vol] 10.1 mg/dL High 4.4-7.[address] [facility] Comment on above: Performed By: #### 5 102 #### [facility] [address] [facility] [place] [address], [facility] BASIC METABOLIC PANELon 07-10 Calcium [Mass/Vol] 7.3 mg/dL Low 8.6-10.[address] [facility] Comment on above: Performed By: #### 3 2044 #### [facility] [address] [facility] [place] [address], [facility] Chloride [Moles/Vol] 111 mmol/L High 98-[address] [facility] Comment on above: Performed By: #### 3 2044 #### [facility] [address] [place] [address], [facility] CO2 [Moles/Vol] 17 mmol/L Low 21-[address] [facility] Comment on above: Performed By: #### 3 2044 #### [facility] [address] [place] [address], [facility] Creatinine [Mass/Vol] 2.68 mg/dL High 0.70-1.[address] [facility] Comment on above: Performed By: #### 3 2044 #### [facility] [address] [facility] [place] [address], [facility] eGFR- 29 ml/min/1.73sq m Abnormal >[address] [facility] Comment on above: Performed By: #### 3 2044 #### [facility] [address] [facility] [place] [address], [facility] eGFR- non- 24 ml/min/1.73sq m Abnormal >[address] [facility] Comment on above: Performed By: #### 3 2044 #### [facility] [address] [facility] [place] [address], [facility] Glucose [Mass/Vol] 147 mg/dL High 70-[address] [facility] Comment on above: Performed By: #### 3 2044 #### [facility] [address] [facility] [place] [address], [facility] Potassium [Moles/Vol] 4.4 mmol/L Normal 3.5-5.[address] [facility] Comment on above: Performed By: #### 3 2044 #### [facility] [address] [facility] [place] [address], [facility] Sodium [Moles/Vol] 138 mmol/L Normal 136-[address] [facility] Comment on above: Performed By: #### 3 2044 #### [facility] [address] [place] [address], [facility] Urea nitrogen [Mass/Vol] 55 mg/dL High 7-[address] [facility] Comment on above: Performed By: #### 3 2044 #### [facility] [address] CBC W/DIFFon 07-31-2021 ABS IMM GRANS 0.0 10*3/uL Normal 0.0-0.[address] [facility] Comment on above: Performed By: #### 5 0103 #### [facility] [address] [place] [address], [facility] ABS NEUTROPHILS 10.7 10*3/uL High 1.6-7.[address] [facility] Comment on above: Performed By: #### 5 0103 #### [facility] [address] [place] [address], [facility] Basophils (Bld) [#/Vol] 0.0 10*3/uL Normal 0.0-0.[address] [facility] Comment on above: Performed By: #### 5 0103 #### [facility] [address] [place] [address], [facility] Basophils/100 WBC (Bld) 0.3 % Normal 0.0-1.[address] [facility] Comment on above: Performed By: #### 5 0103 #### [facility] [address] [place] [address], [facility] Eosinophils (Bld) [#/Vol] 0.1 10*3/uL Normal 0.0-0.[address] [facility] Comment on above: Performed By: #### 5 0103 #### [facility] [address] [place] [address], [facility] Eosinophils/100 WBC (Bld) 0.4 % Normal 0.0-6.[address] [facility] Comment on above: Performed By: #### 5 0103 #### [facility] [address] Erythrocyte distribution width (RBC) [Ratio] 14.6 % Normal 11.5-15.[address] [facility] Comment on above: Performed By: #### 5 0103 #### [facility] [address] [place] [address], [facility] Hematocrit (Bld) [Volume fraction] 44.3 % Normal 39.0-50.[address] [facility] Comment on above: Performed By: #### 5 0103 #### [facility] [address] [facility] [place] [address], [facility] Hemoglobin (Bld) [Mass/Vol] 13.6 g/dL Normal 13.0-17.[address] [facility] Comment on above: Performed By: #### 5 0103 #### [facility] [address] [place] [address], [facility] IMMATURE GRANS 0.3 % Normal 0.0-1.[address] [facility] Comment on above: Performed By: #### 5 3 #### [facility] [address] [facility]. [address] Lymphocytes (Bld) [#/Vol] 0.5 10*3/uL Low 1.2-4.[address] [facility] Comment on above: Performed By: #### 5 3 #### [facility] [address] [facility]. [address] Lymphocytes/100 WBC (Bld) 4.1 % Low 20.0-45.[address] [facility] Comment on above: Performed By: #### 5 3 #### [facility] [address] [facility] [place] [address], [facility] MCH (RBC) [Entitic mass] 27.6 pg Normal 27.0-33.[address] [facility] Comment on above: Performed By: #### 5 3 #### [facility] [address] [facility] [place] [address], [facility] MCHC (RBC) [Mass/Vol] 30.7 g/dL Low 32.0-35.[address] [facility] Comment on above: Performed By: #### 5 3 #### [facility] [address] [facility] [place] [address], [facility] MCV (RBC) [Entitic vol] 90.0 fL Normal 82.0-98.[address] [facility] Comment on above: Performed By: #### 5 0103 #### [facility] [address] [place] [address], [facility] Monocytes (Bld) [#/Vol] 1.0 10*3/uL Normal 0.1-1.[address] [facility] Comment on above: Performed By: #### 5 0103 #### [facility] [address] [facility] [place] [address], [facility] MONOS 8.3 % Normal 5.0-12.[address] [facility] Comment on above: Performed By: #### 102 #### [facility] [address] [facility] [place] [address], [facility] Neutrophils/100 WBC (Bld) 86.6 % High 40.0-72.[address] [facility] Comment on above: Performed By: #### 102 #### [facility] [address] [facility] [place] [address], [facility] Nucleated RBC/100 WBC (Bld) [Ratio] 0 % Normal 0-[address] [facility] Comment on above: Performed By: #### 102 #### [facility] [address] [facility] [place] [address], [facility] PLAT CNT 175 10*3/uL Normal 150-[address] [facility] Comment on above: Performed By: #### 3 #### [facility] [address] [facility] [place] [address], [facility] RBC (Bld) [#/Vol] 4.92 10*6/uL Normal 4.20-5.[address] [facility] Comment on above: Performed By: #### 102 #### [facility] [address] [place] [address], [facility] WBC (Bld) [#/Vol] 12.36 10*3/uL High 4.00-10.[address] [facility] Comment on above: Performed By: #### 5 0103 #### [facility] [address] [facility]. [address] POC SARS COV2 ANTIGEN NEGATI VEon 07-31-2021 POC SARS COV2 ANTIGEN NEG Negative Normal NEGATIVE [facility] Comment on above: Result Comment: Nega tive [...] signs and symptoms consistent with COVID-19. [employer] COVID-19 Ag Card is a lateral flow [...] of Accreditation. Performed By: #### 3 1977 ####[facility] PORTABLE CHEST 1 VIEWon 07-10 PORTABLE CHEST 1 VIEW [facility] Department of Radiology [address] [place] [address] Patient Name: MAN PATEL : 1950 Sex: M Age: Race: White Pt. Location: [facility] Patient Status: E Ordered Date: 07/31/2021 [...] sternotomy. Electronically signed: Rinku Agrawal. Transcribed by: [email or web address], User Resident: Electronically Signed by: RINKU AGRAWAL @ 07/31/2021 01:[address] [facility] Comment on above: Order Comment: Evalu ate for Aspiration TROPONIN-Ion 07-31-2021 Troponin I.cardiac [Mass/Vol] 0.07 ng/mL High 0.00-0.[address] [facility] Comment on above: Result Comment: REFE RENCE RANGES: 0.00 - 0.04 ng/ml NORMAL 0.05 - 0.50 ng/ml INDETERMINATE > 0.50 ng/ml CONSISTENT WITH AN M.I. Performed By: #### 3 2044 #### [facility] [address] [place] [address], [facility] TSH3 WITH REFLEX FT4on 07-31 TSH 3RD GENERATION 1.98 uIU/mL Normal 0.34-5.[address] [facility] Comment on above: Performed By: #### 3 2044 #### [facility] [id number] [address] Vital Signs Date Time Vital Sign Value Performing Clinician Facility 12-23-2023 13:53-0400 Body height 175.26 cm [facility] 12-23-2023 13:53-0400 Body mass index (BMI) [Ratio] 43.8 kg/m2 [facility] 12-23-2023 13:53-0400 Body temperature 96.9 [degF] [facility] 12-23-2023 13:53-0400 Body weight 134.71 kg [facility] 12-23-2023 13:53-0400 Diastolic blood pressure 60 mm[Hg] [facility] 12-23-2023 13:53-0400 Heart rate 91 /min [facility] 12-23-2023 13:53-0400 Respiratory rate 20 /min [facility] 12-23-2023 13:53-0400 SaO2% (BldA) [Mass fraction] 97 % [facility] 12-23-2023 13:53-0400 Systolic blood pressure 110 mm[Hg] [facility] 05-27-2023 13:00-0400 Body height 175.26 cm Dedra Larosco Other [employer] [facility] [employer] Other 05-27-2023 13:00-0400 Body mass index (BMI) [Ratio] 41.93 kg/m2 Econodatatram Larosco Other [employer] [facility] [employer] Other 05-27-2023 13:00-0400 Body temperature 96.8 [degF] Econodatatram Larosco Other [employer] Other 05-27-2023 13:00-0400 Body weight 128.82 kg Econodatatram Larosco Other [employer] Other 05-27-2023 13:00-0400 Diastolic blood pressure 64 mm[Hg] Aziz Bakhous Other [employer] Other 05-27-2023 13:00-0400 Respiratory rate 20 /min Dedra Robersons Other [employer] Other 05-27-2023 13:00-0400 SaO2% (BldA) [Mass fraction] 96 % Dedra Robersons Other [employer] Other 05-27-2023 13:00-0400 Systolic blood pressure 111 mm[Hg] Dedra Robersons Other [employer] Other 12-10-2022 15:00-0400 Body height 175.26 cm Dedra Robersons Other [employer] Other 12-10-2022 15:00-0400 Body mass index (BMI) [Ratio] 39.75 kg/m2 Dedra Robersons Other [employer] Other 12-10-2022 15:00-0400 Body temperature 96.7 [degF] Dedra Robersons Other [employer] Other 12-10-2022 15:00-0400 Body weight 122.11 kg Dedra Robersons Other [employer] Other 12-10-2022 15:00-0400 Diastolic blood pressure 70 mm[Hg] Dedra Robersons Other [employer] Other 12-10-2022 15:00-0400 Respiratory rate 20 /min Dedra Robersons Other [employer] Other 12-10-2022 15:00-0400 SaO2% (BldA) [Mass fraction] 95 % Aztram Robersons Other [employer] Other 12-10-2022 15:00-0400 Systolic blood pressure 110 mm[Hg] Aziz Das Other [employer] Other 09-17-2022 11:00-0500 Body height 175.26 cm Aztram Robersons Other [employer] Other 09-17-2022 11:00-0500 Body mass index (BMI) [Ratio] 39.54 kg/m2 Dedra Robersons Other [employer] Other 09-17-2022 11:00-0500 Body temperature 96.2 [degF] Dedra Robersons Other [employer] Other 09-17-2022 11:00-0500 Body weight 121.47 kg Dedra Robersons Other [employer] Other 09-17-2022 11:00-0500 Diastolic blood pressure 60 mm[Hg] Dedra Robersons Other [employer] Other 09-17-2022 11:00-0500 Respiratory rate 20 /min Dedra Kohous Other [employer] Other 09-17-2022 11:00-0500 SaO2% (BldA) [Mass fraction] 97 % Aztram Kohous Other [employer] Other 09-17-2022 11:00-0500 Systolic blood pressure 102 mm[Hg] Aztram Bakhous Other [employer] Other 06-27-2022 17:43-0400 Diastolic blood pressure 56 mm[Hg] MD Cullen Costa Work Phone: [facility] 06-27-2022 17:43-0400 Heart rate 78 /min MD Cullen Costa Work Phone: [facility] 06-27-2022 17:43-0400 Respiratory rate 20 /min MD Cullen Costa Work Phone: [facility] 06-27-2022 17:43-0400 SaO2% (BldA) [Mass fraction] 95 % MD Cullen Costa Work Phone: [facility] 06-27-2022 17:43-0400 Systolic blood pressure 109 mm[Hg] MD Cullen Costa Work Phone: [facility] 06-27-2022 14:32-0400 Body height 167.64 cm MD Cullen Costa Work Phone: [facility] 06-27-2022 14:32-0400 Body temperature 97.8 [degF] MD Cullen Costa Work Phone: [facility] 06-27-2022 14:32-0400 Body weight 117.02 kg MD Cullen Costa Work Phone: [facility] Encounters Encounter Date Encounter Type Care Provider Facility Start: 05-05-2024 End: 05-05-2024 ambulatory CYNTHIA [facility] Start: 01-27-2024 End: 01-27-2024 ambulatory [facility] Start: 12-23-2023 End: 12-23-2023 ambulatory [facility] Work Phone: Start: 12-23-2023 End: 12-23-2023 Patient encounter procedure [facility] Luk[facility] Work Phone: Start: 12-17-2023 Non-patient / Non-visit [facility] Work Phone: Start: 10-20-2023 End: 10-20-[address] [facility] Start: 07-28-2023 End: 07-28-[address] [facility] Start: 06-09-2023 End: 06-09-2023 ambulatory Cullen Costa Other [employer] Other Start: 06-09-2023 Telephone encounter Cullen Costa [facility] Start: 05-27-2023 End: 05-27-2023 ambulatory Aziz Bakhous Other [employer] Other Start: 05-27-2023 Office outpatient visit 25 minutes Aziz Bakhous [facility] Start: 05-20-2023 End: 05-20-2023 ambulatory Cullen Costa Other [employer] Other Start: 05-20-2023 Telephone encounter Cullen Igor [facility] Start: 12-10-2022 End: 12-10-2022 ambulatory Aziz Bakhous Other [employer] Other Start: 12-10-2022 Office outpatient visit 25 minutes Aziz Bakhous [facility] Start: 12-03-2022 End: 12-04-2022 ambulatory AZIZ BAKHOUS Facility:[facility] Start: 11-27-2022 End: 11-28-2022 ambulatory AZIZ BAKHOUS Facility:[facility] Start: 09-17-2022 End: 09-17-2022 ambulatory Aziz Bakhous Other [employer] Other Start: 09-17-2022 Office outpatient ne w 30 minutes Aziz Bakhous [facility] Start: 07-25-2022 End: 07-25-[address] MARK INIGUEZ Facility:[facility] Start: 07-10-2022 End: 07-11-[address] TIGIST IGLESIAS Facility:[facility] Start: 06-27-2022 End: 06-27-2022 Emergency department patient visit Cullen Costa Facility:[facility] Start: 06-27-2022 End: 06-27-2022 Emergency department patient visit MD Cullen Costa Work Phone: [facility] Start: 06-24-2022 End: 06-25-2022 ambulatory GAGE SIMPSON Facility:[facility] Start: 04-29-2022 ambulatory MIS STORM Facdawna lity:[facility] Start: 04-26-2022 End: 05-03-2022 ambulatory CULLEN COSTA Facility:[facility] Start: 04-25-2022 End: 05-09-2022 Evaluation and management of inpatient TAYLOR HOWARD Facility:[facility] Start: 04-24-2022 End: 04-25-2022 ambulatory VIOLETA VILLAREAL [...] Evaluation and management of inpatient REFERRED SELF Facility:[facility] Procedures Date Procedure Procedure Detail Performing Clinician [...] limb veins US venous duplex LE BI [facility] Start: 06-27-2022 US Lower extremity v ein - bilateral [facility] Bacteria identified in Blood by Culture [facility] Patient Education Cellulitis (Sk in Infection), Adult (DC) [facility] Work Phone: Patient referral [facility] Work Phone: Renal function 2000 panel - Serum or Plasma [facility] Payers Date Payer Category Payer Unknown [id number] 1957 Medicare [id number] 1959 Self-pay 1959 Unknown [id number] 1952 Unknown [id number] 2.16.8 40.1.933910.3.579.2.647 1952 Unknown [id number] 2.16.8 40.1.656362.3.579.2.647 1952 Unknown [id number] 2.16.8 40.1.935518.3.579.2.647 1952 Unknown [id number] 2.16.84 0.1.308948.3.579.2.593 1952 Unknown [id number] 2.16.84 0.1.943926.3.579.2.593 1952 Unknown [id number] 2.16.84 0.1.108955.3.579.2.593 1952 Unknown [id number] 2.16.84 0.1.738894.3.579.2.593 1952 Unknown [id number] 2.16.84 0.1.045795.3.579.2.593 1952 Unknown [id number] 2.16.84 0.1.247687.3.579.2.593 1952 Unknown [id number] 2.16.84 0.1.382835.3.579.2.593 1952 Unknown [id number] 2.16.84 0.1.000311.3.579.2.593 1952 Unknown [id number] 2.16.84 0.1.500097.3.579.2.593 1952 Unknown [id number] 2.16.84 0.1.235760.3.579.2.593 1952 Unknown [id number] 2.16.84 0.1.067369.3.579.2.593 1952 Unknown [id number] 2.16.84 0.1.244353.3.579.2.593 1952 Unknown [id number] 2.16.84 0.1.256725.3.579.2.593 1952 Unknown [id number] 2.16.84 0.1.903506.3.579.2.593 1952 Unknown [id number] 2.16.84 0.1.555908.3.579.2.593 1952 Unknown [id number] 2.16.84 0.1.774290.3.579.2.593 1952 Unknown [id number] 2.16.84 0.1.091212.3.579.2.593 1952 Unknown [id number] 2.16.84 0.1.201834.3.579.2.593 1952 Unknown [id number] 2.16.84 0.1.344464.3.579.2.593 1952 Unknown [id number] 2.16.84 0.1.708719.3.579.2.593 1952 Unknown [id number] 2.16.84 0.1.488624.3.579.2.593 1952 Unknown [id number] 2.16.84 0.1.435044.3.579.2.593 Unknown [id number] 2.16.8 40.1.408496.3.579.2.531 Unknown [employer] [id number] Social History Date Type Detail Facility Start: 06-27-2022 End: 12-23-2023 Tobacco smoking status NHIS Never smoked tobacco (finding) [facility] Start: 1950 Sex Assigned At Male F [facility] Sex Assigned At Sex Assigned At Bir th [place] [employer] Other Clinical Notes 08-02-2021 to 05-05-2024 Note Date & Type Note Facility 05-05-2024 Note Cardiovascular [facility] SUBJECTIVE Chief Complaint Patient presents with Congestive Heart Failure Coronary Artery Disease Man Patel is a 74 y.o. male here for follow-up. HPI PMHx: coronary disease status post bypass surgery in the past x3, cardiac catheterization in 2016 showed no targets for revascularization, hypertension, morbid obesity, chronic systolic heart failure (EF 35-40%- 08/2020, EF 40% April 2022), atrial flutter status post cardioversion in 2015. He also has history of atrial fibrillation. In July 2021 he was admitted with syncope and was found to be in complete heart block. He underwent dual-chamber pacemaker on 07/31/2021. 05/05/2024 He has undergone an initial routine follow-up ECHO. EF was reduced to 30-35%. Follow-up limited ECHO with mallory ordered to confirm EF which showed his EF to be 20-25%. He denies any changes since last seen. His leg edema is unchanged. He is very sedentary at home. His reports he is not mindful of what he eats or drinks. Denies c/o CP, dyspnea, orthopnea, PND, LE edema, dizziness/LH, palpitations, syncope. Patient Active Problem List Diagnosis Chronic combined systolic and diastolic heart failure (CMS/HCC) Benign hypertensive cardiomyopathy with heart failure (CMS/HCC) Paroxysmal atrial fibrillation (CMS/HCC) Arteriosclerosis of arterial coronary artery bypass graft Morbid obesity (CMS/HCC) Bundle branch block Edema of lower extremity Generalized ischemic myocardial dysfunction Pain in lower limb Cellulitis Hyperparathyroidism (CMS/HCC) Hypertensive nephropathy Hyperuricemia Kidney disease, chronic, stage IV (GFR 15-29 ml/min) (CMS/HCC) Presence of permanent cardiac pacemaker Renal cyst, acquired Vitamin D deficiency Past Medical History: Diagnosis Date Atrial fibrillation (CMS/HCC) CHF (congestive heart failure) (CMS/HCC) Chronic kidney disease Coronary artery disease Hyperlipidemia Hypertension Family History Problem Relation Name Age of Onset Coronary artery disease Mother Hyperlipidemia Mother Hypertension Mother Stroke Mother Diabetes Mother Coronary artery disease Father Hyperlipidemia Father Hypertension Father Social History Tobacco Use Smoking status: Never Smokeless tobacco: Never Substance Use Topics Alcohol use: Never No Known Allergies Review of Systems Constitutional: Negative for chills, decreased appetite, fever, malaise/fatigue and weight gain. Cardiovascular: Positive for leg swelling. Negative for chest pain, dyspnea on exertion, irregular heartbeat, near-syncope, orthopnea, palpitations, paroxysmal nocturnal dyspnea and syncope. Hematologic/Lymphatic: Negative for bleeding problem. Does not bruise/bleed easily. OBJECTIVE Visit Vitals BP 123/76 (BP Location: Right wrist, Patient Position: Sitting) Pulse 69 Ht 1.702 m (5' 7 ) Wt 127 kg (280 lb) SpO2 96% BMI 43.85 kg/m??? Smoking Status Never BSA 2.45 m??? Medications: Current Outpatient Medications: allopurinol (Zyloprim) 100 mg tablet, Take 100 mg by mouth in the morning., Disp: , Rfl: amiodarone (Pacerone) 200 mg tablet, TAKE 1 TABLET BY MOUTH EVERY DAY, Disp: 90 tablet, Rfl: 3 apixaban (Eliquis) 5 mg tablet, Take 1 tablet (5 mg) by mouth two times daily., Disp: 14 tablet, Rfl: 3 aspirin 81 mg EC tablet, Take 81 mg by mouth in the morning., Disp: , Rfl: atorvastatin (Lipitor) 80 mg tablet, TAKE 1 TABLET BY MOUTH EVERY DAY, Disp: 90 tablet, Rfl: 3 bumetanide (Bumex) 1 mg tablet, TAKE 3 TABLETS BY MOUTH TWICE A DAY, Disp: 540 tablet, Rfl: 3 hydrALAZINE (Apresoline) 25 mg tablet, TAKE 1 TABLET BY MOUTH IN THE MORNING AND AT BEDTIME, Disp: 180 tablet, Rfl: 3 isosorbide dinitrate [...] , Rfl: spironolactone (Aldactone) 25 mg tablet, TAKE 1 TABLET BY MOUTH EVERY DAY, Disp: 90 tablet, Rfl: 3 Vitamin D3 50 mcg (2,000 unit) tablet, TAKE 1 TABLET BY MOUTH EVERY DAY FOR 90 DAYS, Disp: , Rfl: Physical Exam Constitutional: Appearance: He is obese. He is ill-appearing. HENT: Head: Normocephalic and atraumatic. Right Ear: External ear normal. Left Ear: External ear normal. Eyes: Extraocular Movements: Extraocular movements intact. Pupils: Pupils are equal, round, and reactive to light. Neck: Vascular: No carotid bruit. Cardiovascular: Rate and Rhythm: Normal rate and regular rhythm. Pulses: Normal pulses. Heart sounds: Normal heart sounds. Pulmonary: Effort: Pulmonary effort is normal. Breath sounds: Normal breath sounds. Abdominal: General: Bowel sounds are normal. Palpations: Abdomen is soft. Musculoskeletal: G (more content not included)... [facility] 05-05-2024 Note Pt is here for a fol low up with echo and labs. Pt denies palpatations, chest pain, dizzines. Review of Systems Cardiovascular: Positive for leg swelling. Hematologic/Lymphatic: Bruises/bleeds easily. All other systems reviewed and are negative. [facility] 01-27-2024 Note This report has been cancelled. [facility] 10-20-2023 Note [place] [facility] - [facility] Subjective Man Patel is a 73 [...] or chew., Disp: (more content not included)... [facility] 05-27-2023 Evaluation note Encounter Date Diagnosis Assessment [...] I50.20) Patient follows with cardiology clinic in [facility] every 3 months. Has had seems compensating. [...] 2.4 cm in the right 4.2 cm [employer] Other 04-04-2023 Evaluation note* Encounter Date Diagnosis Assessment Notes [...] I50.20) Patient follows with cardiology clinic in [facility] every 3 months. Has had seems compensating. [...] D is low. As the patient take mybz-hyy-tsddijf vitamin D supplement 2000 unit daily Dec, [...] 2.4 cm in the right 4.2 cm [facility] Other 01-10-2023 Evaluation note* Encounter Date Diagnosis [...] I50.20) Patient follows with cardiology clinic in [facility] every 3 months. Has had seems compensating. Patient on spironolactone and Bumex. Patient follows low-salt diet hours himself every day. Sep, Presence of permanent cardiac pacemaker (ICD-10 - Z95.0) Patient has history of complete heart block status post permanent pacemaker with defibrillator placement in 2020. And Eliquis and amiodarone in addition to metoprolol. Follows with cardiology clinic [facility] Other 08-30-2022 NoteMR#: [id number] [facility] Pt. Name: Man Patel Admitted: 04/25/2022 Discharged: [...] x2 on 04/29 and 05/03, insertion of [place] catheter and removal, and echocardiogram. CONSULTATIONS: Included Cardiology, Nephrology, vascular service and medical ICU. HOSPITAL COURSE: This patient is a 72-year-old male, who presents to the [facility] as a transfer from [facility] with complaints of worsening shortness of breath and weeping edema. The patient was accepted for transfer by the [facility] Cardiology Service for failed outpatient treatment of [...] low-cholesterol diet with (more content not included)...[facility]11-25-2021 NoteMR#: [id number] [facility] Pt. Name: Man Patel Admitted: 07/31/2021 Discharged: [...] reduced ejection fraction, who initially presented to [facility] for bradycardia. He was having syncopal episodes, where he was found to have heart rate in the 30s. Atropine was given at [place] without any help. His blood pressure was stable at that time and was transferred to [facility]. On arrival, his EKG revealed complete heart [...] and followup as an outpatient close to [place] where the patient is from and interested [...] physician, Dr. Costa, in 1 week at [facility]. 2. Follow up with [facility] Heart on 08/10/2021 for wound/pacemaker check at 11:20 a.m. 3. Follow up with [facility] Cardiovascular on 09/04/2021 at 2:[address] [place] [address] Cintron. 4. Follow up with Nephrology around [place]. TIME SPENT: Time spent for the discharge [...] P/Derick Johnson CNP Date Trans: 08/02/2021 05:18 P/mmo [id number] noteNo assessment information availableC[facility]tr Work Phone: Evaluation noteNo InformationNort [employer] Other Evaluation note* Diagnosis Onset Date Resolution Status Hyperparathyroidism acute Hypertensive nephropathy acu te Hyperuricemia acute Kidney disease, chronic, stage IV (GFR 15-29 ml/min) acute Presence of permanent cardiac pacemaker acute Renal cyst, acquired acute Systolic congestive heart failure acute Vitamin D deficiency acute [facility] Work Phone: History general Narrative - Reported* Type Description Date Medical History varicose veins Medical History Hypertension Medical History obesity Medical History thrombophlebitis Medical History possible DVT Medical History CAD Medical History ACUTE HYPOXIC RESPIRATORY FAILUR E Surgical History triple bypass 03/2000 Hospitalization History bypass Hospitalization History EDEMIA 06/29 Hospitalization History EDEMIA 04/2022 [facility] Other [facility] general Narrative - Reported* Type Description Date Medical History varicose veins Medical History Hypertension Medical History obesity Medical History thrombophlebitis Medical History possible DVT Medical History CAD Medical History ACUTE HYPOXIC RESPIRATORY FAILUR E Surgical History triple bypass 03/2000 Hospitalization History bypass Hospitalization History EDEMA 06/29 Hospitalization History EDEMA 04/2022 [facility] Other Hospital Discharge instructions Additional Instructions Take antibiotics as instructed until gone Elevate lower extremities You have blood cultures pending Follow-up with home care your primary care doctor call tomorrow for appointment Return here if any problems persist or worsen including fever, chills, increased redness, increased swelling or any other concernC[facility] Clinic Ctr Work Phone: Summary Purpose Family History [...] and content) DATE CREATED AUTHOR 05/15/2022 [facility] DATE CREATED AUTHOR AUTHOR'S ORGANIZ ATION 07/05/2022 [facility] DATE CREATED AUTHOR AUTHOR'S ORGANIZ ATION 12/11/2022 [facility] DATE CREATED AUTHOR AUTHOR'S ORGANIZ ATION 05/07/2024 [facility] Care Teams (unrecognized sec tion and [...] BE BASED ON THE PRIMARY CLINICAL RECORDS. [facility] [employer] [facility]. provides no warranty or guarantee of the accuracy or completeness of information in this document.
[2024-06-02 10:37] LABS: Hematocrit 48.1 % (42.0-54.0); Hemoglobin 15.3 g/dL (14.0-18.0); Mean Corpuscular HGB Conc 31.8 g/dL (29.9-35.2); Mean Corpuscular Hemoglobin 30.2 pg (25.9-34.0); Mean Corpuscular Volume 94.9 fL (80.0-94.0); Mean Platelet Volume 9.9 fL (9.5-13.5); Platelet Count 182 10^3/uL (150-450); Red Blood Count 5.07 10^6/uL (4.70-6.10); White Blood Count 8.5 10^3/uL (4.0-11.0)
[2024-06-02 10:56] LABS: Bilirubin Urine NEGATIVE (NEGATIVE); Blood Urine NEGATIVE (NEGATIVE); Clarity Urine CLEAR (CLEAR); Color Urine LT. YELLOW (YELLOW); Glucose Urine UA NEGATIVE (NEGATIVE); Ketones Urine NEGATIVE (NEGATIVE); Leukocyte Esterase Urine NEGATIVE (NEGATIVE); Nitrite Urine NEGATIVE (NEGATIVE); Protein Urine NEGATIVE (NEG/TRACE); Specific Gravity Urine 1.015 (1.005-1.025); pH Urine 6.5 (5.0-9.0)
[2024-06-02 11:22] LABS: Creatinine Urine Random 96.57 mg/dL (20.00-300.00); Microalbum Creatinine Ratio Ur 13.4 mg/g (0.0-29.9); Microalbumin Urine Random <1.3 mg/dL (<=30.0); Protein Creatinine Ratio Urine 0.19; Total Protein Urine Random 18.3 mg/dL (<=11.9)
[2024-06-02 11:31] LABS: Albumin Level 3.9 g/dL (3.4-5.0); Anion Gap 7.1; BUN Creatinine Ratio 22.4; Calcium 9.6 mg/dL (8.5-10.1); Carbon Dioxide 32.9 mmol/L (21.0-32.0); Chloride 99 mmol/L (98-107); Estimated GFR (African America 30 (>=60); Estimated GFR (Non-African Ame 25 (>=60); Glucose 117 mg/dL (74-106); Magnesium 2.5 mg/dL (1.8-2.4); Phosphorus 3.3 mg/dL (2.6-4.7); Sodium 135 mmol/L (136-145); Uric Acid 8.1 mg/dL (3.5-7.2)
[2024-06-03 10:10] LABS: PTH, Intact 85 pg/mL (15-65)
== END 2024-06-02 10:13 | disposition home or self-care (01) ==
LOC: LAB 10:15
PROVIDERS: PCP Family Medicine; Visit Provider Internal Medicine Nephrology
DX: N28.1 Cyst of kidney, acquired (principal); E79.0 Hyperuricemia without signs of inflammatory arthritis and tophaceous disease; E21.3 Hyperparathyroidism, unspecified; E55.9 Vitamin D deficiency, unspecified; Z95.0 Presence of cardiac pacemaker; I50.20 Unspecified systolic (congestive) heart failure; N18.4 Chronic kidney disease, stage 4 (severe); I50.22 Chronic systolic (congestive) heart failure
CPT/HCPCS: 36415; 80069; 81003; 82043; 82306; 82570; 83735; 83970; 84156; 84550; 85027

== ENCOUNTER 2024-06-18 14:04 | Outpatient (OUT) | payer MEDICARE, OTHER, SELFPAY ==
--- OUTSIDE RECORDS SUMMARY | 2024-06-17 11:49 | XMS_ITS | CCD ---
Author Organization [facility] Care Team Providers Care Timber Cruiser Name Role Phone ANNELIESE HOWARDD Admitting Unavailable [...] IGOR, DR CULLEN Felton Primary Care Unavailable BELLEROSE, DR ZE Moraes Consulting Unavailable DEDRA MENDOZA [...] MIS Consulting Unavailable TIFFANIE SALGADO Consulting Unavailable BELLEROSE, DR ZE Moraes Attending Unavailable SATURNINO, DR ZE Moraes Admitting Unavailable [facility], DR MEDEIROS Primary Care Unavailable EMETERIO, MIS Dye Attending Unavailable EMETERIO, MIS Dye Admitting Unavailable IGOR, DR CULLEN Felton Primary Care Unavailable DEDRA MENDOZA Attending Unavailable BAKEVANGELINAS, DEDRA Admitting Unavailable BAKEVANGELINAS, AZDUYEN Consulting Unavailable IGOR, DR CULLEN Felton Primary Care Unavailable Cullen Costa Unavailable CYNTHIA PALMA Attending Unavailable LI CINTRON Admitting Unavailable MOUKALI TALBERT Attending Unavailable GAGE SIMPSON Referring Unavailable MOUKAINGAEL, LI Attending Unavailable GAGE SIMPSON Referring Unavailable GAGE SIMPSON Referring Unavailable MOUKARBEL, LI Attending Unavailable MOUKAGALI, LI Referring Unavailable Allergies Allergy Classification Reported Allergen(s) Allergy Type Date of Onset Reaction(s) Facility (3 sources) patient allergy list reviewed by nurse or physicia Propensity to adverse reactions Comment:Done [place] Other (3 sources) Allergies Reconciled Propensity to adverse reactions Unknown [place] Other Medications Current Medications Medication Drug Class(es) Dates Sig (Normalized) Sig (Original) allopurinol 100 mg oral tablet (6 sources) Xanthine Oxidase Inhibitor Start: 12-23-2023 End: 06-08-2024 take 100 mg by mouth once daily Allopurinol Active 100 MG PO Daily June 08, 2024 2:05pm Start: 05-27-2023 take 1 tablet by humaira every twenty-four hours Allopurinol 100 MG 1 tablet Orally Once a day for 90 days May, Active amiodarone hydrochloride 200 mg oral tablet (8 sources) Antiarrhythmic Start: 06-27-2022 take 200 mg by mouth once daily Amiodarone Active 200 MG PO Daily June 27, 2022 12:00am apixaban 5 mg oral tablet (8 sources) Factor Xa Inhibitor Start: 06-27-2022 take 1 tablet by mouth twice daily Apixaban (Eliquis) 5 mg Tablet Active 5 MG PO Twice daily June 27, 2022 12:00am Aspir-81 81 MG (5 sources) take 1 tablet by mouth once daily Aspir-81 81 MG 1 tablet Orally Once a day Active aspirin 81 mg delayed release oral tablet (2 sources) Platelet Aggregation Inhibitor, Nonsteroidal Anti-inflammatory Drug Start: 12-23-2023 take 81 mg by mouth once daily Aspirin Active 81 MG PO Daily December 23, 2023 12:00am atorvastatin 80 mg oral tablet (8 sources) HMG-CoA Reductase Inhibitor Start: 06-27-2022 take 80 mg by mouth once daily at bedtime Atorvastatin Active 80 MG PO Daily at bedtime June 27, 2022 12:00am bumetanide 1 mg oral tablet (10 sources) Loop Diuretic Start: 12-23-2023 take 3 mg by mouth twice daily Bumetanide Active 3 MG PO Twice daily December 23, 2023 12:00am Start: 06-27-2022 End: 12-23-2023 take 1 tablet by mouth twice daily Bumetanide (Bumex) 2 mg Tablet Discontinued 3 MG PO Twice daily June 27, 2022 12:00am December 23, 2023 1:58pm take 3 tablets by [facility] every twelve hours Bumetanide 1 MG 3 tablet Orally TWICE A DAY Active cholecalciferol 0.05 mg oral tablet (8 sources) Vitamin D Start: 12-23-2023 End: 06-08-2024 take 50 ug by mouth once daily Cholecalciferol (Vitamin D3) Active 50 MCG PO Daily June 08, 2024 2:05pm Start: 12-10-2022 take 1 capsule by [facility] once daily Cholecalciferol 25 MCG (1000 UT) 1 capsule Orally Once a day for 90 days Dec, Active take 1 capsule by [facility] once daily Cholecalciferol 25 MCG (1000 UT) 1 capsule Orally Once a day for 90 days Active hydrALAZINE hydrochloride 25 mg oral tablet (10 sources) Arteriolar Vasodilator Start: 12-23-2023 take 25 mg by mouth twice daily Hydralazine Active 25 MG PO Twice daily December 23, 2023 12:00am Start: 06-27-2022 End: 12-23-2023 take 10 mg by mouth three times daily Hydralazine Discontinued 10 MG PO Three times daily June 27, 2022 12:00am December 23, 2023 1:59pm take 1 tablet by [facility] every twelve hours hydrALAZINE HCl 10 MG 1 tablet with food Orally Twice a day Active Isosorbide Dinitrate (14 sources) Nitrate Vasodilator Start: 06-05-2024 take 1 tablet by mouth three times daily Isosorbide Dinitrate Active 0 .ROUTE .COMPLEX June 05, 2024 7:40am TAKE 1 TABLET BY MOUTH THREE TIMES A DAY Start: 03-08-2024 End: 06-05-2024 take 1 tablet by mouth three times daily Isosorbide Dinitrate Discontinued 0 .ROUTE .COMPLEX March 08, 2024 8:33am June 05, 2024 7:40am TAKE 1 TABLET BY MOUTH THREE TIMES A DAY Start: 12-08-2023 End: 03-08-2024 take 1 tablet by mouth three times daily Isosorbide Dinitrate Discontinued 0 .ROUTE .COMPLEX December 08, 2023 11:52am March 08, 2024 8:33am TAKE 1 TABLET BY MOUTH THREE TIMES A DAY Start: 12-08-2023 take 1 tablet by humaira th three times daily Isosorbide Dinitrate Active 0 .ROUTE .COMPLEX December 08, 2023 11:52am TAKE 1 TABLET BY MOUTH THREE TIMES A DAY Start: 06-27-2022 End: 12-08-2023 take 10 mg by mouth three times daily Isosorbide Dinitrate Discontinued 10 MG PO Three times daily June 27, 2022 12:00am December 08, 2023 11:52am allow nitrate-free interval of 12-14 hrs per 24-hr period 24 hr metoprolol succinate 25 mg extended release oral tablet (10 sources) beta-Adrenergic Demarco Start: 12-23-2023 take 12.5 mg by mouth once daily Metoprolol Succinate Active 12.5 MG PO Daily December 23, 2023 12:00am Start: 06-27-2022 End: 12-23-2023 take 25 mg by mouth once daily Metoprolol Succinate Di scontinued 25 MG PO Daily June 27, 2022 12:00am December 23, 2023 2:00pm take 0.5 tablet by m outh once daily Metoprolol Succinate ER 25 MG TAKE 1/2 TABLET BY MOUTH ONCE DAILY for 90 Active Potassium Chloride (8 sources) Start: 05-12-2024 take 1 tablet by humaira th once daily at mealtime Potassium Chloride Active 0 .ROUTE .COMPLEX May 12, 2024 1:46pm TAKE 1 TABLET BY MOUTH EVERY DAY WITH FOOD FOR 90 DAYS Start: 12-23-2023 End: 05-12-2024 take 20 mEq by mouth once daily Potassium Chloride Dis continued 20 MEQ PO Daily December 23, 2023 12:00am May 12, 2024 1:46pm take 1 tablet by humaira th every twenty-four hours Potassium Chloride ER 20 MEQ 1 tablet with food Orally Once a day for 90 days Active spironolactone 25 mg oral tablet (8 sources) Aldosterone Antagonist Start: 06-27-2022 take 25 mg by mouth once daily Spironolactone Active 25 MG PO Daily June 27, 2022 12:00am Completed/Discontinued Medications Medication Drug Class(es) Dates Sig (Normalized) Sig (Original) docusate sodium 100 mg oral tablet (4 sources) Start: 06-27-2022 End: 12-23-2023 take 100 mg by mouth three times daily Docusate Sodium Discontinued 100 MG PO Three times daily June 27, 2022 12:00am December 23, 2023 2:02pm take 1 capsule by mo uth every twenty-four hours Colace 100 MG 1 capsule as needed Orally Once a day Active doxycycline hyclate 100 mg oral capsule (3 sources) Tetracycline-class Drug Start: 06-27-2022 End: 12-23-2023 take 100 mg by mouth twice daily Doxycycline Hyclate Discontinued 100 MG PO Twice daily 27 06June 27, 2022 12:00am December 23, 2023 2:02pm Problems Active Problems Problem Classification Problem Date Documented Da te Episodic/Chronic Cardiac dysrhythmias (8 sources) Paroxysmal atrial fibrillation; Translations: [Paroxysmal atrial [...] of skin] Onset: 01-04-2022 Chronic Conduction disorders (20 sources) Cardiac pacemaker in situ; Translations: [Presence of cardiac pacemaker] Onset: 12-06-2022 Chronic Congestive heart failure; nonhypertensive (20 sources) Congestive heart failure; Translations: [Unspecified systolic (congestive) heart failure] Onset: 12-21-2021 Chronic Coronary atherosclerosis and other heart disease (6 sources) Atherosclerotic heart disease of [place] coronary artery without angina pectoris; Translations: [Atherosclerosis [...] 04-04-2022 Hypertension with complications and secondary hypertension (11 sources) Hypertensive heart and chronic kidney disease with heart failure and stage 1 through stage 4 chronic kidney disease, or unspecified chronic kidney disease; Translations: [Hypertensive chronic kidney disease with stage 1 through stage 4 chronic kidney disease, or unspecified chronic kidney disease] Onset: 03-17-2022 Chronic Mycoses (3 sources) Candidiasis of skin and nails; Translations: [Candidiasis of skin and nail] Episodic Nutritional deficiencies (10 sources) Vitamin D deficiency; Translations: [Vitamin D deficiency, unspecified] Chronic Open wounds of extremities (4 sources) Unspecified open wound, left lower leg, sequela; Translations: [Open wound of knee and/or leg and/or ankle] Onset: 04-12-2022 Episodic Other circulatory disease (3 sources) Elevated blood-pressure reading without diagnosis of hypertension; Translations: [Elevated blood-pressure reading, without diagnosis of hypertension] Episodic Other diseases of kidney and ureters (5 sources) Cyst of kidney, acquired; Translations: [Cyst of kidney, acquired] Onset: 11-30-2022 Episodic Other diseases of kidney and ureters (2 sources) Acquired renal cystic disease; Translations: [Cyst of [...] insufficiency (chronic) (peripheral)] Episodic Other endocrine disorders (6 sources) Hyperparathyroidism; Translations: [Hyperparathyroidism, unspecified] 12-21-2023 Chronic Other endocrine disorders (4 sources) Hyperparathyroidism, unspecified; Translations: [Hyperparathyroidism, unspecified] Chronic [...] Chronic Other nutritional; endocrine; and metabolic disorders (4 sources) Hyperuricemia without signs of inflammatory arthritis and tophaceous disease; Translations: [Other abnormal blood chemistry] Episodic Other nutritional; endocrine; and metabolic disorders (2 sources) Hyperuricemia; Translations: [Hyperuricemia without signs of inflammatory [...] Pseudomonas] Episodic Skin and subcutaneous tissue infections (14 sources) Cellulitis; Translations: [Cellulitis, unspecified] Onset: 12-13-2021 [...] Onset: 04-01-2022 Episodic Other aftercare (1 source) nursing home (current) use of aspirin; Translations: [RESIDENTIAL CURRENT USE OF ASPIRIN] Onset: 07-18-2022 Episodic Other aftercare (3 sources) Other sap specialist (current) drug therapy; Translations: [OTH RESIDENTIAL CURRENT DRUG THERAPY] Onset: 07-18-2022 Episodic Other aftercare (1 source) enamel shader (current) use of anticoagulants; Translations: [RESIDENTIAL CURRNT USE ANTICOAGULANTS] Onset: 04-26-2022 Episodic Other [...] Value Interpretation Reference Range Facility Office Visiton 06-09-2024 Follow-up visit [id number] Man Patel 1950 M Date Provider Department Center 06/09/2024 LI [facility] Family History Problem Relation Age of Onset Coronary artery disease Mother Hyperlipidemia Mother Hypertension Mother Stroke Mother Diabetes Mother Coronary artery disease Father Hyperlipidemia Father Hypertension Father Family Status - Relation Status Age at Mother Father Level of Service:16385 ID OFFICE/OUTPATIENT ESTABLISHED HIGH MDM 40 MIN Normal [facility] Erythrocyte distribution wid th Auto (RBC) [Ratio]on 06-02-2024 Erythrocyte distribution width (RBC) [Ratio] 15.0 % 11.0-15.0 [facility] Estimated glomerular filtrat ion rate (GFR) non- Americanon 06-02-2024 GFR/1.73 sq M.predicted among non-blacks MDRD (S/P/Bld) [Vol rate/Area] 25 mL/min/{1.73_m2} Low >=60 [facility] Hematocrit Auto (Bld) [Volum e fraction]on 06-02-2024 Hematocrit (Bld) [Volume fraction] 48.1 % 42.0-54.0 [facility] Hemoglobin [Mass/volume] in Bloodon 06-02-2024 Hemoglobin (Bld) [Mass/Vol] 15.3 g/dL 14.0-18.0 [facility] Laboratory - Chemistry and C hemistry - challengeon 06-02-2024 Albumin [Mass/Vol] 3.9 g/dL 3.4-5.0 [facility] Calcium [Mass/Vol] 9.6 mg/dL 8.5-10.1 [facility] Chloride [Moles/Vol] 99 mmol/L 98-107 [facility] CO2 [Moles/Vol] 32.9 mmol/L High 21.0-32.0 [facility] Creatinine [Mass/Vol] 2.55 mg/dL High 0.70-1.30 [facility] GFR/1.73 sq M.predicted MDRD (S/P/Bld) [Vol rate/Area] 30 mL/min/{1.73_m2} Low >=60 [facility] Glucose [Mass/Vol] 117 mg/dL High 74-106 [facility] Magnesium [Mass/Vol] 2.5 mg/dL High 1.8-2.4 [facility] Potassium [Moles/Vol] 4.0 mmol/L 3.5-5.1 [facility] Sodium [Moles/Vol] 135 mmol/L Low 136-145 [facility] Urate [Mass/Vol] 8.1 mg/dL High 3.5-7.2 [facility] Urea nitrogen [Mass/Vol] 57.0 mg/dL High 7.0-18.0 [facility] Urea nitrogen/Creatinine [Mass ratio] 22.4 mg/mg [facility] Bilirubin Ql (U) Negative NEGATIVE [facility] Glucose (U) [Mass/Vol] Negative NEGATIVE [facility] Ketones Ql (U) Negative NEGATIVE [facility] pH (U) 6.5 [pH] 5.0-9.0 [facility] Specific gravity (U) [Rel density] 1.015 1.005-1.025 [facility] Urobilinogen Qn (U) 2.0 {Caden'U}/dL Abnormal 0.2-1.0 [facility] Laboratory - Specimen inform ationon 06-02-2024 Appearance (U) CLEAR CLEAR [facility] Color (U) LT. YELLOW YELLOW [facility] Laboratory - Urinalysison Leukocyte esterase Test strip Ql (U) Negative NEGATIVE [facility] Nitrite Ql (U) Negative NEGATIVE [facility] Protein (U) [Mass/Vol] 18.3 mg/dL High <=11.9 [facility] Protein Ql (U) Negative NEG/TRACE [facility] Leukocytes [#/volume] correc chester for nucleated erythrocytes in Blood by Automated counon 06-02-2024 WBC corrected for nucl RBC Auto (Bld) [#/Vol] 8.5 10 3/uL 4.0-11.0 [facility] MCH Auto (RBC) [Entitic mass ]on 06-02-2024 MCH (RBC) [Entitic mass] 30.2 pg 25.9-34.0 [facility] MCHC Auto (RBC) [Mass/Vol]on 06-02-2024 MCHC (RBC) [Mass/Vol] 31.8 g/dL 29.9-35.2 [facility] MCV Auto (RBC) [Entitic vol] on 06-02-2024 MCV (RBC) [Entitic vol] 94.9 fL High 80.0-94.0 [facility] Microalbumin [Mass/volume] i n Urineon 06-02-2024 Albumin DL <= 20 mg/L (U) [Mass/Vol] mg/dL <=30.0 [facility] No Panel Informationon 06-02 25-Hydroxy Vitamin D Total 29.9 ng/mL [facility] Comment on above: <20 ng/mL Vit D defi cient20-<30 ng/mL Vit D [id number] ng/mL Vit D sufficient>100 ng/mL Potential Toxicity Parathyroid Hormone (Intact) 85 pg/mL Abnormal 15-65 [facility] Comment on above: Performed at: [facility] [employer] [id number] Director: [place] PhD, Phone: [phone] Phosphorus Level 3.3 mg/dL 2.6-4.7 [facility] Urine Occult Blood Negative NEGATIVE [facility] Urine Random Creatinine 96.57 mg/dL 20.00-300.00 [facility] Platelet mean volume Auto (B ld) [Entitic vol]on 06-02-2024 Platelet mean volume (Bld) [Entitic vol] 9.9 fL 9.5-13.5 [facility] Platelets Auto (Bld) [#/Vol] on 06-02-2024 Platelets (Bld) [#/Vol] 182 10 3/uL 150-450 [facility] RBC Auto (Bld) [#/Vol]on RBC (Bld) [#/Vol] 5.07 10 6/uL 4.70-6.10 [facility] Serum or plasma anion gap de terminationon 06-02-2024 Anion gap [Moles/Vol] 7.1 mmol/L [facility] Urine microalbumin/creatinin e mass ratioon 06-02-2024 Albumin/Creatinine DL <= 20 mg/L (U) [Mass ratio] 13.4 mg/g 0.0-29.9 [facility] Comment on above: NO MICROALBUMINURIA 0-29 MG/GCLINICAL MICROALBUMINURIA 30-300 MG/GMACROALBUMINURIA >300 MG/G Urine protein/creatinine rat ioon 06-02-2024 Protein/Creatinine (U) [Ratio] 0.19 [facility] Office Visiton 05-05-2024 Follow-up visit [id number] Man Patel Db 1950 M Date Provider Department Center 05/05/2024 CYNTHIA [facility] Family History Problem Relation Age of Onset Coronary artery disease Mother Hyperlipidemia Mother Hypertension Mother Stroke Mother Diabetes Mother Coronary artery disease Father Hyperlipidemia Father Hypertension Father Family Status - Relation Status Age at Mother Father Level of Service:03004 ID OFFICE/OUTPATIENT ESTABLISHED MOD MDM 30 MIN Reason for Visit and Comments: Congestive Heart Failure [127] Coronary Artery Disease [187] Normal [facility] Basophils Auto (Bld) [#/Vol] on 04-30-2024 Basophils (Bld) [#/Vol] 0.1 10 3/uL 0.0-0.1 [facility] Basophils/100 WBC Auto (Bld) on 04-30-2024 Basophils/100 WBC (Bld) 0.8 % 0.2-2.0 [facility] Cholesterol in LDL Calc [Mas s/Vol]on 04-30-2024 Cholesterol in LDL [Mass/Vol] 35.0 mg/dL [facility] Comment on above: <100 mg/dl [id number] 0-129 mg/dl NEAR OR ABOVE [id number] mg/dl BORDERLINE [id number] mg/dl HIGH>190 mg/dl VERY HIGH Cholesterol in VLDL Calc [Ma ss/Vol]on 04-30-2024 Cholesterol in VLDL [Mass/Vol] 8.0 mg/dL [facility] Eosinophils/100 WBC Auto (Bl d)on 04-30-2024 Eosinophils/100 WBC (Bld) 8.4 % High 0.9-7.0 [facility] Erythrocyte distribution wid th Auto (RBC) [Ratio]on 04-30-2024 Erythrocyte distribution width (RBC) [Ratio] 15.3 % High 11.0-15.0 [facility] Estimated glomerular filtrat ion rate (GFR) non- Americanon 04-30-2024 GFR/1.73 sq M.predicted among non-blacks MDRD (S/P/Bld) [Vol rate/Area] 26 mL/min/{1.73_m2} Low >=60 [facility] Globulin Calc (S) [Mass/Vol] on 04-30-2024 Globulin (S) [Mass/Vol] 3.6 g/dL [facility] Hematocrit Auto (Bld) [Volum e fraction]on 04-30-2024 Hematocrit (Bld) [Volume fraction] 45.6 % 42.0-54.0 [facility] Hemoglobin [Mass/volume] in Bloodon 04-30-2024 Hemoglobin (Bld) [Mass/Vol] 14.7 g/dL 14.0-18.0 [facility] Laboratory - Chemistry and C hemistry - challengeon 04-30-2024 Albumin [Mass/Vol] 3.6 g/dL 3.4-5.0 [facility] ALP [Catalytic activity/Vol] 110 U/L 46-116 [facility] ALT [Catalytic activity/Vol] 19 U/L 16-63 [facility] AST [Catalytic activity/Vol] 19 U/L 15-37 [facility] Bilirubin [Mass/Vol] 1.2 mg/dL High 0.2-1.0 [facility] Calcium [Mass/Vol] 9.2 mg/dL 8.5-10.1 [facility] Chloride [Moles/Vol] 100 mmol/L 98-107 [facility] Cholesterol [Mass/Vol] 101 mg/dL <=200 [facility] Cholesterol in HDL [Mass/Vol] 58 mg/dL 40-60 [facility] Comment on above: > or =60 mg/dl - LOW CARDIOVASCULAR RISK<40 mg/dl - HIGH CARDIOVASCULAR RISK CO2 [Moles/Vol] 27.5 mmol/L 21.0-32.0 [facility] Creatinine [Mass/Vol] 2.45 mg/dL High 0.70-1.30 [facility] Free T4 [Mass/Vol] 1.26 ng/dL 0.76-1.46 [facility] GFR/1.73 sq M.predicted MDRD (S/P/Bld) [Vol rate/Area] 32 mL/min/{1.73_m2} Low >=60 [facility] Glucose [Mass/Vol] 122 mg/dL High 74-106 [facility] Potassium [Moles/Vol] 4.1 mmol/L 3.5-5.1 [facility] Protein [Mass/Vol] 7.2 g/dL 6.4-8.2 [facility] Sodium [Moles/Vol] 137 mmol/L 136-145 [facility] Triglyceride [Mass/Vol] 40 mg/dL <=150 [facility] TSH Qn 2.710 m[IU]/L 0.358-3.740 [facility] Urea nitrogen [Mass/Vol] 53.0 mg/dL High 7.0-18.0 [facility] Urea nitrogen/Creatinine [Mass ratio] 21.6 mg/mg [facility] Laboratory - Hematology and Cell countson 04-30-2024 Immature granulocytes/100 WBC (Bld) 0.6 % High 0.0-0.5 [facility] Leukocytes [#/volume] correc chester for nucleated erythrocytes in Blood by Automated counon 04-30-2024 WBC corrected for nucl RBC Auto (Bld) [#/Vol] 7.2 10 3/uL 4.0-11.0 [facility] Lymphocytes Auto (Bld) [#/Vo l]on 04-30-2024 Lymphocytes (Bld) [#/Vol] 0.7 10 3/uL Low 1.2-3.8 [facility] Lymphocytes/100 WBC Auto (Bl d)on 04-30-2024 Lymphocytes/100 WBC (Bld) 9.7 % Low 20.5-60.0 [facility] MCH Auto (RBC) [Entitic mass ]on 04-30-2024 MCH (RBC) [Entitic mass] 30.0 pg 25.9-34.0 [facility] MCHC Auto (RBC) [Mass/Vol]on 04-30-2024 MCHC (RBC) [Mass/Vol] 32.2 g/dL 29.9-35.2 [facility] MCV Auto (RBC) [Entitic vol] on 04-30-2024 MCV (RBC) [Entitic vol] 93.1 fL 80.0-94.0 [facility] Monocytes Auto (Bld) [#/Vol] on 04-30-2024 Monocytes (Bld) [#/Vol] 0.6 10 3/uL 0.3-0.8 [facility] Monocytes/100 WBC Auto (Bld) on 04-30-2024 Monocytes/100 WBC (Bld) 8.2 % 1.7-12.0 [facility] Neutrophils Auto (Bld) [#/Vo l]on 04-30-2024 Neutrophils (Bld) [#/Vol] 5.2 10 3/uL 1.4-6.5 [facility] Neutrophils/100 WBC Auto (Bl d)on 04-30-2024 Neutrophils/100 WBC (Bld) 72.3 % 43.0-75.0 [facility] No Panel Informationon 04-30 Eosinophils # (Auto) 0.6 10 3/uL 0.0-0.7 [facility] Immature Granulocyte # (Auto) 0.04 10 3/uL High 0.00-0.03 [facility] Platelet mean volume Auto (B ld) [Entitic vol]on 04-30-2024 Platelet mean volume (Bld) [Entitic vol] 10.7 fL 9.5-13.5 [facility] Platelets Auto (Bld) [#/Vol] on 04-30-2024 Platelets (Bld) [#/Vol] 171 10 3/uL 150-450 [facility] RBC Auto (Bld) [#/Vol]on RBC (Bld) [#/Vol] 4.90 10 6/uL 4.70-6.10 [facility] Serum or plasma albumin/glob ulin mass ratioon 04-30-2024 Albumin/Globulin [Mass ratio] 1.0 {ratio} [facility] Serum or plasma anion gap de terminationon 04-30-2024 Anion gap [Moles/Vol] 13.6 mmol/[facility] Serum or plasma total choles terol/high density lipoprotein (HDL) cholesterol mass ralf 04-30-2024 Cholesterol.total/Chol esterol in HDL [Mass ratio] 1.7 {ratio} [facility] Comment on above: 3.3 - 4.4 LOW RISK4. 4 - 7.1 AVERAGE RISK7.1 - 11.0 MODERATE RISK>11.0 HIGH RISK 36on 04-26-2024 36 Spoke with patient's last week and made her aware that [facility] would be calling to schedule this echo w/ [facility]. [facility] on 04-13-2024 36 Regarding echo resul t from 04/06/2024: MD Key Mao MA He needs a limited echo for LVEF with echocontrast (at [facility] [[email or web address] 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 Can this be done at [facility] with Mallory? I already know he's not going to be keen on driving to [place]. But if you insist, I will make him aware of the need to go to [facility] [[email or web address]]. Just thought I'd ask. [facility] 02-12-[address] Simpson wanted pinky tuckertamiko to have echo s/p device check on 01/27/2024. He is due for echo prior to his Apr [address] Cintron. [facility] Erythrocyte distribution wid th Auto (RBC) [Ratio]on 12-17-2023 Erythrocyte distribution width (RBC) [Ratio] 15.6 % 11.0-15.0 [facility] Estimated glomerular filtrat ion rate (GFR) non- Americanon 12-17-2023 GFR/1.73 sq M.predicted among non-blacks MDRD (S/P/Bld) [Vol rate/Area] 22 mL/min/{1.73_m2} >=60 [facility] Globulin Calc (S) [Mass/Vol] on 12-17-2023 Globulin (S) [Mass/Vol] 4.2 g/dL [facility] Hematocrit Auto (Bld) [Volum e fraction]on 12-17-2023 Hematocrit (Bld) [Volume fraction] 46.1 % 42.0-54.0 [facility] Hemoglobin [Mass/volume] in Bloodon 12-17-2023 Hemoglobin (Bld) [Mass/Vol] 14.9 g/dL 14.0-18.0 [facility] Laboratory - Chemistry and C hemistry - challengeon 12-17-2023 Albumin [Mass/Vol] 3.9 g/dL 3.4-5.0 [facility] ALP [Catalytic activity/Vol] 131 U/L 46-116 [facility] ALT [Catalytic activity/Vol] 21 U/L 16-63 [facility] AST [Catalytic activity/Vol] 20 U/L 15-37 [facility] Bilirubin [Mass/Vol] 1.1 mg/dL 0.2-1.0 [facility] Calcium [Mass/Vol] 9.5 mg/dL 8.5-10.1 [facility] Chloride [Moles/Vol] 100 mmol/L 98-107 [facility] CO2 [Moles/Vol] 26.5 mmol/L 21.0-32.0 [facility] Creatinine [Mass/Vol] 2.90 mg/dL 0.70-1.30 [facility] GFR/1.73 sq M.predicted MDRD (S/P/Bld) [Vol rate/Area] 26 mL/min/{1.73_m2} >=60 [facility] Glucose [Mass/Vol] 112 mg/dL 74-106 [facility] Magnesium [Mass/Vol] 2.9 mg/dL 1.8-2.4 [facility] Potassium [Moles/Vol] 4.4 mmol/L 3.5-5.1 [facility] Protein [Mass/Vol] 8.1 g/dL 6.4-8.2 [facility] Sodium [Moles/Vol] 139 mmol/L 136-145 [facility] Urate [Mass/Vol] 7.8 mg/dL 3.5-7.2 [facility] Urea nitrogen [Mass/Vol] 64.0 mg/dL 7.0-18.0 [facility] Urea nitrogen/Creatinine [Mass ratio] 22.1 mg/mg [facility] Leukocytes [#/volume] correc chester for nucleated erythrocytes in Blood by Automated counon 12-17-2023 WBC corrected for nucl RBC Auto (Bld) [#/Vol] 7.3 10 3/uL 4.0-11.0 [facility] MCH Auto (RBC) [Entitic mass ]on 12-17-2023 MCH (RBC) [Entitic mass] 29.6 pg 25.9-34.0 [facility] MCHC Auto (RBC) [Mass/Vol]on 12-17-2023 MCHC (RBC) [Mass/Vol] 32.3 g/dL 29.9-35.2 [facility] MCV Auto (RBC) [Entitic vol] on 12-17-2023 MCV (RBC) [Entitic vol] 91.5 fL 80.0-94.0 [facility] No Panel Informationon 12-16 25-Hydroxy Vitamin D Total 27.7 ng/mL [facility] Comment on above: <20 ng/mL Vit D defi cient20-<30 ng/mL Vit D stohuxlzcuem30-682 ng/mL Vit D sufficient>100 ng/mL Potential Toxicity Miscellaneous Test COMMENT . [facility] Comment on above: Test Ordered: [id number] Prot+CreatU (Random)Creatinine, Urine 15.1 mg/dL CB Reference Range: Not Estab.Protein,Total,Urine <4.0 mg/dL CB Reference Range: Not Estab.Verified by repeat analysisProtein/Creat Ratio Comment [A ] CB Units of Measure: mg/g creat Reference Range: 0-200This result is below the assay's limit of quantitationindicating a dilute specimen, potentially due to diurnalvariation. Consider recollection at a time likely toprovide a more concentrated urine.Performed at: CB - [facility] [address] [id number] Director: New Vega PhD, Phone: [phone] Parathyroid Hormone (Intact) 140 pg/mL 15-65 [facility] Comment on above: Performed at: CB - [facility] [address] [id number] Director: New Vega PhD, Phone: [phone] Phosphorus Level 3.7 mg/dL 2.6-4.7 [facility] Platelet mean volume Auto (B ld) [Entitic vol]on 12-17-2023 Platelet mean volume (Bld) [Entitic vol] 10.8 fL 9.5-13.5 [facility] Platelets Auto (Bld) [#/Vol] on 12-17-2023 Platelets (Bld) [#/Vol] 195 10 3/uL 150-450 [facility] RBC Auto (Bld) [#/Vol]on RBC (Bld) [#/Vol] 5.04 10 6/uL 4.70-6.10 [facility] Serum or plasma albumin/glob ulin mass ratioon 12-17-2023 Albumin/Globulin [Mass ratio] 0.9 {ratio} [facility] Serum or plasma anion gap de terminationon 12-17-2023 Anion gap [Moles/Vol] 16.9 mmol/L [facility] Office Visiton 10-20-2023 Follow-up visit [id number] Man Patel 1950 M Date Provider Department Center 10/20/2023 LI MADDOX [facility] Family History Problem Relation Age of Onset Coronary artery disease Mother Hyperlipidemia Mother Hypertension Mother Stroke Mother Diabetes Mother Coronary artery disease Father Hyperlipidemia Father Hypertension Father Family Status - Relation Status Age at Mother Father Level of Service:00635 ID OFFICE/OUTPATIENT ESTABLISHED LOW MDM 20 MIN Normal [facility] PTH INTACTon 12-04-2022 PTH, Intact 66 pg/mL Critically high 15-65 [facility] Comment on above: Performed By: #### P THINT ####[facility] [address]aviay[address] [place] [address]Dr. Elba Anthony HEMOGRAM AND PLATELon 2022 Hematocrit (Bld) [Volume fraction] 43.4 % Normal 42.0-54.0 [facility] Comment on above: Performed By: #### H H ####[facility] [address]tf[address]coma[address] [place] [id number]. Elba Anthony Hemoglobin (Bld) [Mass/Vol] 14.1 g/dL Normal 14.0-18.0 [facility] Comment on above: Performed By: #### H H ####[facility] Egjjrcmqie9182 [place] [address]Dr. Elba Anthony MCH (RBC) [Entitic mass] 28.2 pg Normal 25.9-34.0 [facility] Comment on above: Performed By: #### H H ####[facility] Dtreayttmd2701 [place] [address]Dr. Elba Anthony MCHC (RBC) [Mass/Vol] 32.5 g/dL Normal 29.9-35.2 [facility] Comment on above: Performed By: #### H H ####[facility] Lpmxlvhafh9542 [place] [address]Dr. Elba Anthony MCV (RBC) [Entitic vol] 86.8 fL Normal 80.0-94.0 [facility] Comment on above: Performed By: #### H H ####[facility] Wkkduqtbzx6277 [place] [address]Dr. Elba Anthony PLT 170 103/ul Normal 150-450 [facility] Comment on above: Performed By: #### H H ####[facility] C[address] [place], [place] [address]Dr. Elba Anthony RBC 5.00 106/ul Normal 4.70-6.10 [facility] Comment on above: Performed By: #### H H ####[facility] Qphztuvumb[address] [place], [place] [address]Dr. Elba Anthony WBC 7.2 103/ul Normal 4.0-11.0 [facility] Comment on above: Performed By: #### H H ####[facility] Gtrjvlxrzy8703 [place] [address]Dr. Elba Anthony MAGNESIUMon 12-03-2022 Magnesium [Mass/Vol] 2.6 mg/dL Critically high 1.8-2.4 [facility] Comment on above: Performed By: #### C MP, URIC, PHOS, MG ####[facility] Vfpqkxtccr4445 [place] [address]Dr. Elba Anthony PHOSPHORUSon 12-03-2022 Phosphate [Mass/Vol] 3.9 mg/dL Normal 2.6-4.7 [facility] Comment on above: Performed By: #### C MP, URIC, PHOS, MG ####[facility] Wgtrwnzhfb5789 [place] [address]Dr. Elba Anthony PROF 14(COMP METB)on 023 Albumin [Mass/Vol] 4.0 g/dL Normal 3.4-5.0 [facility] Comment on above: Performed By: #### C MP, URIC, PHOS, MG ####[facility] Nipmrozjzo3996 [place] [address]Dr. Elba Anthony Albumin/Globulin [Mass ratio] 0.9 {ratio} Normal [facility] Comment on above: Performed By: #### C MP, URIC, PHOS, MG ####[facility] Vntlvvflsf1856 [place] [address]Dr. Elba Anthony ALP [Catalytic activity/Vol] 159 U/L Critically high 46-116 [facility] Comment on above: Performed By: #### C MP, URIC, PHOS, MG ####[facility] Xcednxiiib4320 [place] [address]Dr. Elba Anthony ALT [Catalytic activity/Vol] 33 U/L Normal 16-63 [facility] Comment on above: Performed By: #### C MP, URIC, PHOS, MG ####[facility] Vdoicxcaib7303 [place] [address]Dr. Elba Anthony Anion gap [Moles/Vol] 15.2 mmol/L Normal [facility] Comment on above: Performed By: #### C MP, URIC, PHOS, MG ####[facility] Ubsdayzxlx3106 [place] [address]Dr. Elba Anthony AST [Catalytic activity/Vol] 27 U/L Normal 15-37 [facility] Comment on above: Performed By: #### C MP, URIC, PHOS, MG ####[facility] Heypdkkptv9494 [place] [address]Dr. Elba Anthony Bilirubin [Mass/Vol] 0.9 mg/dL Normal 0.2-1.0 [facility] Comment on above: Performed By: #### C MP, URIC, PHOS, MG ####[facility] Subtybozkv4360 [place] [address]Dr. Elba Anthony Calcium [Mass/Vol] 9.8 mg/dL Normal 8.5-10.1 [facility] Comment on above: Performed By: #### C MP, URIC, PHOS, MG ####[facility] Awvlbhhrhj1085 [place] [address]Dr. Elba Anthony Chloride [Moles/Vol] 102 mmol/L Normal 98-107 [facility] Comment on above: Performed By: #### C MP, URIC, PHOS, MG ####[facility] Zhftrrjudv[address] [place], [place] [address]Dr. Elba Anthony CO2 [Moles/Vol] 30.5 mmol/L Normal 21.0-32.0 [facility] Comment on above: Performed By: #### C MP, URIC, PHOS, MG ####[facility] Ldnbcskimf[address] [place], [place] [address]Dr. Elba Anthony Creatinine [Mass/Vol] 2.63 mg/dL Critically high 0.70-1.30 [facility] Comment on above: Performed By: #### C MP, URIC, PHOS, MG ####[facility] Lwxvxtpbkx2322 [place] [address]Dr. Elba Anthony EGFR-AF UGANDAN 29 mL/min/1.73m2 Critically low >=60 [facility] Comment on above: Performed By: #### C MP, URIC, PHOS, MG ####[facility] Ebeaxyqyit7042 [place] [address]Dr. Elba Anthony EGFR-NON AF UGANDAN 24 mL/min/1.73m2 Critically low >=60 [facility] Comment on above: Performed By: #### C MP, URIC, PHOS, MG ####[facility] Cwzyuudxur5936 [place] [address]Dr. Elba Anthony Globulin (S) [Mass/Vol] 4.5 g/dL Normal [facility] Comment on above: Performed By: #### C MP, URIC, PHOS, MG ####[facility] Yqrjnyzdkz6594 [place] [address]Dr. Elba Anthony Glucose [Mass/Vol] 122 mg/dL Critically high 74-106 [facility] Comment on above: Performed By: #### C MP, URIC, PHOS, MG ####[facility] Ultqzohome3439 [place] [address]Dr. Elba Anthony Potassium [Moles/Vol] 4.7 mmol/L Normal 3.5-5.1 [facility] Comment on above: Performed By: #### C MP, URIC, PHOS, MG ####[facility] Ayaddwkxeo8202 [place] [address]Dr. Elba Anthony Protein [Mass/Vol] 8.5 g/dL Critically high 6.4-8.2 [facility] Comment on above: Performed By: #### C MP, URIC, PHOS, MG ####[facility] Jajthcasoz4327 [place] [address]Dr. Elba Anthony Sodium [Moles/Vol] 143 mmol/L Normal 136-145 [facility] Comment on above: Performed By: #### C MP, URIC, PHOS, MG ####[facility] Alzsqmqrbf7186 [place] [address]Dr. Elba Anthony Urea nitrogen [Mass/Vol] 59.0 mg/dL Critically high 7.0-18.0 [facility] Comment on above: Performed By: #### C MP, URIC, PHOS, MG ####[facility] Jhdwfajffg1104 [place] [address]Dr. Elba Anthony Urea nitrogen/Creatinine [Mass ratio] 22.4 mg/mg Normal [facility] Comment on above: Performed By: #### C MP, URIC, PHOS, MG ####[facility] Unjnicmgye3320 [place] [address]Dr. Elba Anthony UA RANDOMon 12-03-2022 Bilirubin Ql (U) Negative Normal NEGATIVE [facility] Comment on above: Performed By: #### U A ####[facility] Yyqltjhohl74[address] [place], [place] [address]Dr. Elba Anthony Clarity (U) CLEAR Normal CLEAR [facility] Comment on above: Performed By: #### U A ####[facility] Bljxjtvmia[address] [place], [place] [address]Dr. Elba Anthony Color (U) LT. YELLOW Normal YELLOW [facility] Comment on above: Performed By: #### U A ####[facility] Tdiyohsuto6[address] [place], [place] [address]Dr. Elba Anthony Glucose Ql (U) Negative Normal NEGATIVE [facility] Comment on above: Performed By: #### U A ####[facility] Yxggxnlrls56[address] [place], [place] [address]Dr. Elba Anthony Hemoglobin Ql (U) Negative Normal NEGATIVE [facility] Comment on above: Performed By: #### U A ####[facility] Ayjwtbbibq515[address] [place], [place] [address]Dr. lEba Anthony Ketones Ql (U) Negative Normal NEGATIVE [facility] Comment on above: Performed By: #### U A ####[facility] Odwdtekhtu8[address] [place], [place] [address]Dr. Elba Anthony LEUKOCYTES Negative Normal NEGATIVE [facility] Comment on above: Performed By: #### U A ####[facility] Wotagphlta7[address] [place], [place] [address]Dr. Elba Anthony Nitrite Ql (U) Negative Normal NEGATIVE [facility] Comment on above: Performed By: #### U A ####[facility] Vmrpsxwivo9[address] [place], [place] [address]Dr. Elba Anthony pH (U) 7.0 [pH] Normal 5-9 [facility] Comment on above: Performed By: #### U A ####[facility] Ikkqqnzeqi4469[address] [place], [place] [address]Dr. Elba Anthony SPEC GRAVITY <=1.005 Abnormal 1.005-<=1.02 5 [facility] Comment on above: Performed By: #### U A ####[facility] Gbkzqymlxj1617[address] [place], [place] [address]Dr. Elba Anthony UA PROTEIN TRACE Normal NEGATIVE/ TRACE [facility] Comment on above: Performed By: #### U A ####[facility] Qvuonldnkr4588 [place] [address]Dr. Elba Anthony Urobilinogen Qn (U) 2.0 {Caden'U}/dL Abnormal 0.2 - 1. 0 [facility] Comment on above: Performed By: #### U A ####[facility] Jcfrpnexrw[address] [place], [place] [address]Dr. Elba Anthony URIC ACID SERUMon 12-03-2022 Urate [Mass/Vol] 9.0 mg/dL Critically high 3.5-7.2 [facility] Comment on above: Performed By: #### C MP, URIC, PHOS, MG ####[facility] Bfaoxsjtwa139[address] [place], [place] [address]Dr. Elba Anthony URINE T PROTEIN CREAT RATIOo n 12-03-2022 Protein (U) [Mass/Vol] 26.9 mg/dL Critically high <=12.0 [facility] Comment on above: Performed By: #### U RTPCR ####[facility] Jmmfjqgwth[address] [place], [place] [address]Dr. Elba Anthony UR PROT CREAT RAT 0.33 Normal [facility] Comment on above: Performed By: #### U RTPCR ####[facility] Hrnpokexcr5960[address] [place], [place] [address]Dr. Elba Anthony URINE CREAT 82.74 mg/dL Normal 20.00-300.00 [facility] Comment on above: Performed By: #### U RTPCR ####[facility] Dmjjitoqyc2440[address] [place], [place] [address]Dr. Elba Anthony VITAMIN D 25 OHon 12-03-2022 VIT D 25-OH 14.7 ng/mL Normal [facility] Comment on above: Performed By: #### V ITAD ####[facility] Wzuwxavmlo[address] [place], [place] [address]Dr. Elba Anthony VIT D RANGES SEE BELOW Normal [facility] Comment on above: Result Comment: <20 ng/mL Vit D deficient 20 - <30 ng/mL Vit D insufficient 30 - 100 ng/mL Vit D sufficient >100 ng/mL Potential Toxicity Performed By: #### V ITAD ####[facility] Ujdyzjokrx[address] [place], [place] [address]Dr. Elba Anthony US KIDNEYSon 11-27-2022 US KIDNEYS Normal [facility] PROF CHEM 8 (BAS METB)on Anion gap [Moles/Vol] 11.1 mmol/L Normal [facility] Comment on above: Performed By: #### B MP ####[facility] Yclkznfsej3824[address] [place], [place] [address]Dr. Elba Anthony Calcium [Mass/Vol] 9.0 mg/dL Normal 8.5-10.1 [facility] Comment on above: Performed By: #### B MP ####[facility] Pdnebyldvi1280[address] [place], [place] [address]Dr. Elba Anthony Chloride [Moles/Vol] 99 mmol/L Normal 98-107 [facility] Comment on above: Performed By: #### B MP ####[facility] Qbemyoecsm2[address] [place], [place] [address]Dr. Elba Anthony CO2 [Moles/Vol] 30.3 mmol/L Normal 21.0-32.0 [facility] Comment on above: Performed By: #### B MP ####[facility] Ulvubkeyzl4[address] [place], [place] [address]Dr. Elba Anthony Creatinine [Mass/Vol] 2.43 mg/dL Critically high 0.70-1.30 [facility] Comment on above: Performed By: #### B MP ####[facility] Wgvlskdzrj04[address] [place], [place] [address]Dr. Elba Anthony EGFR-AF UGANDAN 32 mL/min/1.73m2 Critically low >=60 [facility] Comment on above: Performed By: #### B MP ####[facility] Kemdqxdixt[address] [place], [place] [address]Dr. Elba Anthony EGFR-NON AF UGANDAN 27 mL/min/1.73m2 Critically low >=60 [facility] Comment on above: Performed By: #### B MP ####[facility] Gxsduaofyg0048 [place] [address]Dr. Elba Anthony Glucose [Mass/Vol] 142 mg/dL Critically high 74-106 [facility] Comment on above: Performed By: #### B MP ####[facility] Nhqwsegrwu2185 [place] [address]Dr. Elba Anthony Potassium [Moles/Vol] 4.4 mmol/L Normal 3.5-5.1 [facility] Comment on above: Performed By: #### B MP ####[facility] Ylvtzsfknq88[address] [place], [place] [address]Dr. Elba Anthony Sodium [Moles/Vol] 136 mmol/L Normal 136-145 [facility] Comment on above: Performed By: #### B MP ####[facility] Tbwguklzxh[address] [place], [place] [address]Dr. Elba Anthony Urea nitrogen [Mass/Vol] 60.0 mg/dL Critically high 7.0-18.0 [facility] Comment on above: Performed By: #### B MP ####[facility] Dusleqoggk0413[address] [place], [place] [address]Dr. Elba Anthony Urea nitrogen/Creatinine [Mass ratio] 24.7 mg/mg Normal [facility] Comment on above: Performed By: #### B MP ####[facility] Nsteonpkug64[address] [place], [place] [address]Dr. Elba Anthony CBC AUTO DIFFon 07-11-2022 BASO # 0.1 103/ul Normal 0.0-0.1 [facility] Comment on above: Performed By: #### C BC ####[facility] Ctxdjinhcz6664[address] [place], [place] [address]Dr. Elba Anthony Basophils/100 WBC (Bld) 0.8 % Normal 0.2-2.0 [facility] Comment on above: Performed By: #### C BC ####[facility] Aqqfdkqcfc4524[address] [place], [place] [address]Dr. Elba Anthony EO # 0.9 103/ul Critically high 0.0-0.7 [facility] Comment on above: Performed By: #### C BC ####[facility] Mcnhkzdfcx1522 [place] [address]Dr. Elba Anthony Eosinophils/100 WBC (Bld) 13.7 % Critically high 0.9-7.0 [facility] Comment on above: Performed By: #### C BC ####[facility] Muvsrgblds2547 [place] [address]Dr. Elba Anthony Erythrocyte distribution width (RBC) [Ratio] 20.8 % Critically high 11.0-15.0 [facility] Comment on above: Performed By: #### C BC ####[facility] Fdhesbmsos55[address] [place], [place] [address]Dr. Elba Anthony Hematocrit (Bld) [Volume fraction] 35.3 % Critically low 42.0-54.0 [facility] Comment on above: Performed By: #### C BC ####[facility] Nmjcxjrqee04[address] [place], [place] [address]Dr. Elba Anthony Hemoglobin (Bld) [Mass/Vol] 11.5 g/dL Critically low 14.0-18.0 [facility] Comment on above: Performed By: #### C BC ####[facility] Kklpafchoi12[address] [place], [place] [address]Dr. Elba Anthony IG # 0.04 10e3/ul Critically high 0.00-0.03 [facility] Comment on above: Performed By: #### C BC ####[facility] Cbbtvoxpfa4120 [place] [address]Dr. Elba Anthony IG % 0.6 % Critically high 0.0-0.5 [facility] Comment on above: Performed By: #### C BC ####[facility] Uegwpbrban268[address] [place], [place] [address]DrLatoya Elba Anthony LYMPH # 1.1 103/ul Critically low 1.2-3.8 [facility] Comment on above: Performed By: #### C BC ####[facility] Xqraperkoa6599[address] [place], [place] [address]Dr. Elba Anthony Lymphocytes/100 WBC (Bld) 17.2 % Critically low 20.5-60.0 [facility] Comment on above: Performed By: #### C BC ####[facility] Osynhbowyj3763 [place] [address]Dr. Elba Anthony MANUAL DIFF REQ NO Normal [facility] Comment on above: Performed By: #### C BC ####[facility] Iberbawzff7663 [place] [address]Dr. Elba Anthony MCH (RBC) [Entitic mass] 27.9 pg Normal 25.9-34.0 [facility] Comment on above: Performed By: #### C BC ####[facility] Mtzrgoraso9130 [place] [address]Dr. Elba Anthony MCHC (RBC) [Mass/Vol] 32.6 g/dL Normal 29.9-35.2 [facility] Comment on above: Performed By: #### C BC ####[facility] Kkeuupguqs13[address] [place], [place] [address]Dr. Elba Anthony MCV (RBC) [Entitic vol] 85.7 fL Normal 80.0-94.0 [facility] Comment on above: Performed By: #### C BC ####[facility] Msozpfkvqv37[address] [place], [place] [address]Dr. Elba Anthony MONO # 0.8 103/ul Normal 0.3-0.8 [facility] Comment on above: Performed By: #### C BC ####[facility] Evboqobamd[address] [place], [place] [address]Dr. Elba Anthony Monocytes/100 WBC (Bld) 13.0 % Critically high 1.7-12.0 [facility] Comment on above: Performed By: #### C BC ####[facility] Hannrxghmt[address] [place], [place] [address]DrLatoya Anthony NEUT # 3.4 103/ul Normal 1.4-6.5 [facility] Comment on above: Performed By: #### C BC ####[facility] Ruufuxcnhd[address] [place], [place] [address]DrLatoya Anthony Neutrophils/100 WBC (Bld) 54.7 % Normal 43.0-75.0 [facility] Comment on above: Performed By: #### C BC ####[facility] Aowgljfqxl0498 [place] [address]Dr. Elba Anthony Platelet mean volume (Bld) [Entitic vol] 9.5 fL Normal 9.5-13.5 [facility] Comment on above: Performed By: #### C BC ####[facility] Edgdfxiakm5917 [place] [address]Dr. Elba Anthony PLT 206 103/ul Normal 150-450 [facility] Comment on above: Performed By: #### C BC ####[facility] Hipncllamw8047 [place] [address]Dr. Elba Anthony RBC 4.12 106/ul Critically low 4.70-6.10 [facility] Comment on above: Performed By: #### C BC ####[facility] Ocxewoxvgl[address] [place], [place] [address]Dr. Elba nAthony WBC 6.2 103/ul Normal 4.0-11.0 [facility] Comment on above: Performed By: #### C BC ####[facility] Atfiyqonzw8204 [place] [id number] Anthony PROF CHEM 8 (BAS METB)on Anion gap [Moles/Vol] 10.9 mmol/L Normal [facility] Comment on above: Performed By: #### B MP ####[facility] Kwukgbzbyi8505 [place] [address]DrLatoya Anthony Calcium [Mass/Vol] 8.9 mg/dL Normal 8.5-10.1 [facility] Comment on above: Performed By: #### B MP ####[facility] Avbjwkdzwk2771 [place] [address]DrLatoya Anthony Chloride [Moles/Vol] 103 mmol/L Normal 98-107 [facility] Comment on above: Performed By: #### B MP ####[facility] Xkxlmethla6186 [place] [id number] Anthony CO2 [Moles/Vol] 31.0 mmol/L Normal 21.0-32.0 [facility] Comment on above: Performed By: #### B MP ####[facility] Cgtamnhtul3524 [place] [address]Dr. Elba Anthony Creatinine [Mass/Vol] 2.18 mg/dL Critically high 0.70-1.30 [facility] Comment on above: Performed By: #### B MP ####[facility] Dwqnjapctc5511 [place] [address]Dr. Elba Anthony EGFR-AF UGANDAN 36 mL/min/1.73m2 Critically low >=60 [facility] Comment on above: Performed By: #### B MP ####[facility] Tkrsivrvff8227 [place] [address]Dr. Elba Anthony EGFR-NON AF UGANDAN 30 mL/min/1.73m2 Critically low >=60 [facility] Comment on above: Performed By: #### B MP ####[facility] Micqunovon[address] [place], [place] [address]Dr. Elba Anthony Glucose [Mass/Vol] 99 mg/dL Normal 74-106 [facility] Comment on above: Performed By: #### B MP ####[facility] Fxoebwpxzi32[address] [place], [place] [address]Dr. Elba Anthony Potassium [Moles/Vol] 3.9 mmol/L Normal 3.5-5.1 [facility] Comment on above: Performed By: #### B MP ####[facility] Silgdgljfs[address] [place], [place] [address]Dr. Elba Anthony Sodium [Moles/Vol] 141 mmol/L Normal 136-145 [facility] Comment on above: Performed By: #### B MP ####[facility] [address] [place] [id number]. Elba Anthony Urea nitrogen [Mass/Vol] 40.0 mg/dL Critically high 7.0-18.0 [facility] Comment on above: Performed By: #### B MP ####[facility] Xcdrerqoej0322 [place] [id number]. Elba Anthony Urea nitrogen/Creatinine [Mass ratio] 18.3 mg/mg Normal [facility] Comment on above: Performed By: #### B MP ####[facility] [address]touhu[address] [place] [address]Dr. Elba Anthony XR CHEST 2 Von 07-11-2022 XR CHEST 2 V Normal [facility] BNPon 07-10-2022 Natriuretic peptide B (Bld) [Mass/Vol] 2542.0 pg/mL Critically high <=900.0 [facility] Comment on above: Performed By: #### H STROPN, BNP, CMP ####[facility] [address]ytp[address] [place] [id number]. Elba Anthony CARDIAC FADY 3-6on 2 CK [Catalytic activity/Vol] 40 U/L Normal 39-308 [facility] Comment on above: Performed By: #### C MREP ####[facility] [address] [place], [place] [address]Dr. Elba Anthony CK.MB [Mass/Vol] 0.92 ng/mL Normal <=3.60 [facility] Comment on above: Performed By: #### C MREP ####[facility] Iqhentglyz[address] [place], [place] [address]Dr. Elba Anthony HSTROP 49.6 pg/mL Normal 4.0-76.1 [facility] Comment on above: Result Comment: CUT- OFF POINTS HAVE BEEN ESTABLISHED BASED ON THE FOURTH UNIVERSAL DEFINITIONS OF MYOCARDIALINFARCTION. THE UPPER REFERENCE LIMIT (URL) OF TROPONIN, DEFINED THE 99TH PERCENTILE OFcTnI DISTRIBUTION IN A REFERENCE POPULATION, HAS BEEN CONFIRMED THE DECISION THRESHOLDFOR MT DIAGNOSIS. Performed By: #### C MREP ####[facility] T[address]ob[address]pri3[address] [place], [place] [address]Dr. Elba Anthony CK [Catalytic activity/Vol] 39 U/L Normal 39-308 [facility] Comment on above: Performed By: #### C MREP ####[facility] Bxvvsvoggh7444 [place] [phone]. Elba Anthony CK.MB [Mass/Vol] 0.76 ng/mL Normal <=3.60 [facility] Comment on above: Performed By: #### C MREP ####[facility] Zazaabzndi0851 [place] [address]Dr. Elba Anthony HSTROP 47.3 pg/mL Normal 4.0-76.1 [facility] Comment on above: Result Comment: CUT- OFF POINTS HAVE BEEN ESTABLISHED BASED ON THE FOURTH UNIVERSAL DEFINITIONS OF MYOCARDIALINFARCTION. THE UPPER REFERENCE LIMIT (URL) OF TROPONIN, DEFINED THE 99TH PERCENTILE OFcTnI DISTRIBUTION IN A REFERENCE POPULATION, HAS BEEN CONFIRMED THE DECISION THRESHOLDFOR MT DIAGNOSIS. Performed By: #### C MREP ####[facility] Jmvtahdiwa[address] [place], [place] [address]Dr. Elba Raj CBC AUTO DIFFon 07-10-2022 BASO # 0.1 103/ul Normal 0.0-0.1 [facility] Comment on above: Performed By: #### C BC ####[facility] Zydohvlcwu[address] [place], [place] [address]Dr. Elba Anthony Basophils/100 WBC (Bld) 1.1 % Normal 0.2-2.0 [facility] Comment on above: Performed By: #### C BC ####[facility] Asrulkdssh24[address] [place], [place] [address]Dr. Elba Anthony EO # 0.6 103/ul Normal 0.0-0.7 [facility] Comment on above: Performed By: #### C BC ####[facility] Oba[address] [place], [place] [address]Dr. Elba Anthony Eosinophils/100 WBC (Bld) 8.9 % Critically high 0.9-7.0 [facility] Comment on above: Performed By: #### C BC ####[facility] W[address]rf[address]lnyiv[address] [place], [place] [address]Dr. Elba Anthony Erythrocyte distribution width (RBC) [Ratio] 21.1 % Critically high 11.0-15.0 [facility] Comment on above: Performed By: #### C BC ####[facility] Kkswssnvbe5[address] [place], [place] [address]Dr. Elba Anthony Hematocrit (Bld) [Volume fraction] 39.1 % Critically low 42.0-54.0 [facility] Comment on above: Performed By: #### C BC ####[facility] Tivsnelkyu[address] [place] [address]Dr. Elba Anthony Hemoglobin (Bld) [Mass/Vol] 12.6 g/dL Critically low 14.0-18.0 [facility] Comment on above: Performed By: #### C BC ####[facility] Ssqrbfghpo0304 [place] [address]Dr. Elba Anthony IG # 0.04 10e3/ul Critically high 0.00-0.03 [facility] Comment on above: Performed By: #### C BC ####[facility] Ekietdhijh211[address] [place], [place] [address]Dr. Elba Anthony IG % 0.6 % Critically high 0.0-0.5 [facility] Comment on above: Performed By: #### C BC ####[facility] Bekhfouirb068[address] [place], [place] [address]Dr. Nereydasiobhan Raj LYMPH # 0.9 103/ul Critically low 1.2-3.8 [facility] Comment on above: Performed By: #### C BC ####[facility] Brycihekny27[address] [place], [place] [address]Dr. Elba Raj Lymphocytes/100 WBC (Bld) 13.8 % Critically low 20.5-60.0 [facility] Comment on above: Performed By: #### C BC ####[facility] Vriyxobnji[address] [place], [place] [address]Dr. Nereydasiobhan Anthony MANUAL DIFF REQ NO Normal [facility] Comment on above: Performed By: #### C BC ####[facility] Azisyvqwce04[address] [place], [place] [address]Dr. Elba Raj MCH (RBC) [Entitic mass] 27.5 pg Normal 25.9-34.0 [facility] Comment on above: Performed By: #### C BC ####[facility] Awsbtuqkqn87[address] [place], [place] [address]Dr. Elba Anthony MCHC (RBC) [Mass/Vol] 32.2 g/dL Normal 29.9-35.2 [facility] Comment on above: Performed By: #### C BC ####[facility] [address]ymlf[address]qvw[address] [place] [id number]. Elba Anthony MCV (RBC) [Entitic vol] 85.2 fL Normal 80.0-94.0 [facility] Comment on above: Performed By: #### C BC ####[facility] [address]gkvxbdwtp44[address] [place] [address]Dr. Elba Anthony MONO # 0.9 103/ul Critically high 0.3-0.8 [facility] Comment on above: Performed By: #### C BC ####[facility] Fou[address]qqwjrt24[address] [place] [address]Dr. Elba Anthony Monocytes/100 WBC (Bld) 14.0 % Critically high 1.7-12.0 [facility] Comment on above: Performed By: #### C BC ####[facility] Dijtfctjnk[address] [place], [place] [address]Dr. Elba Anthony NEUT # 4.1 103/ul Normal 1.4-6.5 [facility] Comment on above: Performed By: #### C BC ####[facility] Fbffrhyhgr39[address] [place], [place] [address]Dr. Elba Anthony Neutrophils/100 WBC (Bld) 61.6 % Normal 43.0-75.0 [facility] Comment on above: Performed By: #### C BC ####[facility] Hzkgcgyfvy7046[address] [place], [place] [address]Dr. Elba Anthony Platelet mean volume (Bld) [Entitic vol] 10.1 fL Normal 9.5-13.5 [facility] Comment on above: Performed By: #### C BC ####[facility] [address] [place], [place] [address]Dr. Elba Raj PLT 223 103/ul Normal 150-450 [facility] Comment on above: Performed By: #### C BC ####[facility] Xwfskcgucx1207 [place] [address]Dr. Elba Raj RBC 4.59 106/ul Critically low 4.70-6.10 [facility] Comment on above: Performed By: #### C BC ####[facility] Qhptqytuzg9108 [place] [address]Dr. Elba Anthony WBC 6.7 103/ul Normal 4.0-11.0 [facility] Comment on above: Performed By: #### C BC ####[facility] Kqymfcwnui2111 [place] [address]Dr. Elba Raj Covid-19 PCR (CVDTB)on SARS-CoV-2 (COVID-19) RNA ELIZABETH+probe Ql (Unsp spec) Not detected Normal NOT DETECTED [facility] Comment on above: Result Comment: When diagnostic [...] for this test is supported by the [place] of Health and Human Service's declaration that [...] be used). Performed By: #### C VDTBH ####[facility] Rpxefcvhhu[address] [place] [address]Dr. Elba Raj ER URINE PROFILEon 2 Bilirubin Ql (U) Negative Normal NEGATIVE [facility] Comment on above: Performed By: #### E RUR ####[facility] Gvcradypne[address] [place], [place] [address]Dr. Elba Anthony Clarity (U) CLEAR Normal CLEAR [facility] Comment on above: Performed By: #### E RUR ####[facility] [address]qvwfkps[address] [place] [address]Dr. Elba Anthony Color (U) LT. YELLOW Normal YELLOW [facility] Comment on above: Performed By: #### E RUR ####[facility] Qgvitotfxb23[address] [place], [place] [address]Dr. Elba Anthony ERUAHD A micrscopic examina tion will be performed if indicated. Normal [facility] Comment on above: Performed By: #### E RUR ####[facility] Xlutkzkkqv[address] [place], [place] [address]Dr. Elba Anthony Glucose Ql (U) Negative Normal NEGATIVE [facility] Comment on above: Performed By: #### E RUR ####[facility] Pcsipsdfap87[address] [place], [place] [address]Dr. Elba Anthony Hemoglobin Ql (U) Negative Normal NEGATIVE [facility] Comment on above: Performed By: #### E RUR ####[facility] Efzcjnqsyp9[address] [place], [place] [address]Dr. Elba Anthony Ketones Ql (U) Negative Normal NEGATIVE [facility] Comment on above: Performed By: #### E RUR ####[facility] Sfpyokznxj94[address] [place], [place] [address]Dr. Elba Anthony LEUKOCYTES Negative Normal NEGATIVE [facility] Comment on above: Performed By: #### E RUR ####[facility] Bhtghmlqaf[address]37[address] [place], [place] [address]Dr. Elba Anthony Nitrite Ql (U) Negative Normal NEGATIVE [facility] Comment on above: Performed By: #### E RUR ####[facility] Iewegbpfvx7[address] [place], [place] [address]Dr. Elba Anthony pH (U) 7.0 [pH] Normal 5-9 [facility] Comment on above: Performed By: #### E RUR ####[facility] Baziaqscow[address] [place], [place] [address]DrLatoya Anthony SPEC GRAVITY 1.010 Normal 1.005-<=1.02 5 [facility] Comment on above: Performed By: #### E RUR ####[facility] Mukuknpyvr[address] [place], [place] [address]Dr. Elba Anthony UA PROTEIN Negative Normal NEGATIVE/ TRACE [facility] Comment on above: Performed By: #### E RUR ####[facility] [address]fm[address]afzw[address] [place] [address]Dr. Elba Anthony UR MICRO IND NOT INDICATED Normal [facility] Comment on above: Performed By: #### E RUR ####[facility] Vtgzvxlpoa6[address] [place] [address]Dr. Elba Anthony Urobilinogen Qn (U) 0.2 {Caden'U}/dL Normal 0.2 - 1. 0 [facility] Comment on above: Performed By: #### E RUR ####[facility] Gfdmjbltpj[address] [place], [place] [address]Dr. Elba Anthony PROF 14(COMP METB)on 022 Albumin [Mass/Vol] 3.3 g/dL Critically low 3.4-5.0 [facility] Comment on above: Performed By: #### H STROPN, BNP, CMP ####[facility] Nupbku[address]uh[address] [place] [address]Dr. Elba Anthony Albumin/Globulin [Mass ratio] 0.8 {ratio} Normal [facility] Comment on above: Performed By: #### H STROPN, BNP, CMP ####[facility] [address]oyokcsro[address] [place] [address]Dr. Elba Anthony ALP [Catalytic activity/Vol] 114 U/L Normal 46-116 [facility] Comment on above: Performed By: #### H STROPN, BNP, CMP ####[facility] Awgilowdhf[address] [place] [address]Dr. Elba Anthony ALT [Catalytic activity/Vol] 23 U/L Normal 16-63 [facility] Comment on above: Performed By: #### H STROPN, BNP, CMP ####[facility] Sevqeieczs9[address] [place] [address]Dr. Elba Anthony Anion gap [Moles/Vol] 9.5 mmol/L Normal [facility] Comment on above: Performed By: #### H STROPN, BNP, CMP ####[facility] Vkfcmtvfho7957 [place] [address]Dr. Elba Anthony AST [Catalytic activity/Vol] 32 U/L Normal 15-37 [facility] Comment on above: Performed By: #### H STROPN, BNP, CMP ####[facility] Nnpgkorxup55[address] [place] [address]Dr. Elba Anthony Bilirubin [Mass/Vol] 0.7 mg/dL Normal 0.2-1.0 [facility] Comment on above: Performed By: #### H STROPN, BNP, CMP ####[facility] Dfpdlftrty1486 [place] [address]Dr. Elba Anthony Calcium [Mass/Vol] 9.1 mg/dL Normal 8.5-10.1 [facility] Comment on above: Performed By: #### H STROPN, BNP, CMP ####[facility] Tsbgpmgsdj[address] [place], [place] [address]Dr. Elba Anthony Chloride [Moles/Vol] 99 mmol/L Normal 98-107 [facility] Comment on above: Performed By: #### H STROPN, BNP, CMP ####[facility] Xemzbtfcge[address] [place] [address]Dr. Elba Anthony CO2 [Moles/Vol] 33.2 mmol/L Critically high 21.0-32.0 [facility] Comment on above: Performed By: #### H STROPN, BNP, CMP ####[facility] Pdfdtycnax[address] [place], [place] [address]Dr. Elba Anthony Creatinine [Mass/Vol] 2.31 mg/dL Critically high 0.70-1.30 [facility] Comment on above: Performed By: #### H STROPN, BNP, CMP ####[facility] [address]ft[address]wfe[address] [place] [address]Dr. Elba Anthony EGFR-AF UGANDAN 34 mL/min/1.73m2 Critically low >=60 [facility] Comment on above: Performed By: #### H STROPN, BNP, CMP ####[facility] Csbmdychpu16[address] [place] [address]Dr. Elba Anthony EGFR-NON AF UGANDAN 28 mL/min/1.73m2 Critically low >=60 [facility] Comment on above: Performed By: #### H STROPN, BNP, CMP ####[facility] Ljjkbimadt[address] [place] [address]Dr. Elba Anthony Globulin (S) [Mass/Vol] 4.3 g/dL Normal [facility] Comment on above: Performed By: #### H STROPN, BNP, CMP ####[facility] Mdycugpdge5[address] [place] [address]Dr. Elba Anthony Glucose [Mass/Vol] 98 mg/dL Normal 74-106 [facility] Comment on above: Performed By: #### H STROPN, BNP, CMP ####[facility] Etfrxokfcu25[address] [place] [address]Dr. Elba Anthony Potassium [Moles/Vol] 4.7 mmol/L Normal 3.5-5.1 [facility] Comment on above: Performed By: #### H STROPN, BNP, CMP ####[facility] Hktufejzdi[address] [place], [place] [address]Dr. Elba Anthony Protein [Mass/Vol] 7.6 g/dL Normal 6.4-8.2 [facility] Comment on above: Performed By: #### H STROPN, BNP, CMP ####[facility] [address]sykxkkndd[address] [place], [place] [address]Dr. Elba Anthony Sodium [Moles/Vol] 137 mmol/L Normal 136-145 [facility] Comment on above: Performed By: #### H STROPN, BNP, CMP ####[facility] Qsyfhtlzna28[address] [place] [address]Dr. Elba Anthony Urea nitrogen [Mass/Vol] 47.0 mg/dL Critically high 7.0-18.0 [facility] Comment on above: Performed By: #### H STROPN, BNP, CMP ####[facility] Paandlmeyo[address] [place] [address]Dr. Elba Anthony Urea nitrogen/Creatinine [Mass ratio] 20.3 mg/mg Normal [facility] Comment on above: Performed By: #### H STROPN, BNP, CMP ####[facility] [address]zxox[address] [place] [id number]. Elba Anthony PROTIMEon 07-10-2022 INR Coag (PPP) [Relative time] 1.07 {INR} Normal [facility] Comment on above: Performed By: #### P T, PTT ####[facility] Vdcqqwpbxx[address] [place] [address]Dr. Elba Anthony INR GUIDELINES SEE BELOW Normal [facility] Comment on above: Result Comment: FUAD RED INR: 2.0 - 3.0 CONDITIONS NOT LISTED BELOW 2.5 - 3.5 FOR PROSTHETIC HEART VALVE REPLACEMENT 2.5 - 3.5 RECURRENT THROMBOSIS Performed By: #### P T, PTT ####[facility] Pqrzkdsoco49[address] [place] [address]Dr. Elba Anthony PT Coag (PPP) [Time] 11.5 s Normal 9.0-11.6 [facility] Comment on above: Performed By: #### P T, PTT ####[facility] Xjiejwicqp[address] [place] [address]Dr. Elba Anthony PTTon 07-10-2022 aPTT Coag (Bld) [Time] 34.7 s Normal 22.3-36.2 [facility] Comment on above: Performed By: #### P T, PTT ####[facility] Wrjvoqtvke33[address] [place] [address]Dr. Elba Anthony TROPONIN, HIGH SENSITIVITYon 07-10-2022 HSTROP 45.2 pg/mL Normal 4.0-76.1 [facility] Comment on above: Result Comment: CUT- OFF POINTS HAVE BEEN ESTABLISHED BASED ON THE FOURTH UNIVERSAL DEFINITIONS OF MYOCARDIALINFARCTION. THE UPPER REFERENCE LIMIT (URL) OF TROPONIN, DEFINED THE 99TH PERCENTILE OFcTnI DISTRIBUTION IN A REFERENCE POPULATION, HAS BEEN CONFIRMED THE DECISION THRESHOLDFOR MT DIAGNOSIS. Performed By: #### H STROPN, BNP, CMP ####[facility] Okjhdpcojd[address] [place] [address]Dr. Elba Anthony XR CHEST 1 Von 07-10-2022 XR CHEST 1 V Normal [facility] US venous duplex LE BIon US venous duplex LE BI [facility] [place] [address] [place] [address] Ultrasound Report Signed Patient: Man Patel MR#: [id number] : 1950 Acct:[id number] Age/Sex: 72 / M ADM Date: 06/27/22 Loc: ER Room: Type: [facility] ER Attending Dr: Ordering Provider: Melva [...] Balwinder Watson MD06/28/2022 8:49 AM Dictation Location: [place] [address] Tech: Mayra Henry Transcribed By: [facility] 06/28/22848 Dictated By: Balwinder Watson MD 06/28/22848 Signed By: 06/28/22848 Normal [facility] Activated partial thrombopla stin time (aPTT) in platelet poor plasma by coagulation aOrdered By: Melva Owusu on 06-27-2022 aPTT Coag (PPP) [Time] 36.4 s 25.1-36.5 [facility] Albumin [Mass/volume] in Ser um or PlasmaOrdered By: Melva Owusu on 06-27-2022 Albumin [Mass/Vol] 3.1 g/dL 3.2-5.5 [facility] B-Type Natriuretic Peptideon 06-27-2022 Natriuretic peptide B (Bld) [Mass/Vol] 367.0 pg/mL High 5-100 [facility] Comment on above: Result Comment: PERF ORMED BY: [place] [address]ARCIA M[address] Performed By: #### S OFIANEG, COVID-19 JOSE #### [address] Basophils Auto (Bld) [#/Vol] Ordered By: Melva Owusu on 06-27-2022 Basophils (Bld) [#/Vol] 0.0 10*3/uL 0.0-0.2 [facility] Basophils/100 WBC Auto (Bld) Ordered By: [facility] 06-27-2022 Basophils/100 WBC (Bld) 0.6 % . [facility] Bilirubin Test strip Ql (U)O rdered By: Melvavance Owusu on 06-27-2022 Bilirubin Ql (U) Negative Negative [facility] Blood Cultureon 06-27-2022 Bacteria identified Cx Nom (Bld) NO GROWTH 5 DAYS PERFORMED BY: [place] [address]IA M.D[address] [facility] Comment on above: Performed By: #### C UBLD, LACTIC #### [address] Bacteria identified Cx Nom (Bld) NO GROWTH 5 DAYS PERFORMED BY: [place] [address]IA M[address] [facility] Comment on above: Performed By: #### C UBLD, LACTIC #### [facility] [address] [place] [address] COVID-19 Antigenon 2 COVID-19 Antigen Healthcare Worker?: [...] developed and its performance characteristic determined by [employer] and validated at [facility]. This test has not been FDA [...] for SARS Antigen by MORIAH PERFORMED BY: [place] [address]ARCIA M[address] Normal [facility] Comment on above: Performed By: #### S JORGE, COVID-19 JOSE #### [address] COVID-19 SOFIAOrdered By: Fito Chavarria on 06-27-2022 SARS-CoV+SARS-CoV-2 (COVID-19) Ag IA.rapid Ql (Resp) Negative Negative [facility] Comment on above: This is a duplicate Jose SARS Antigen (MORIAH) result to be used for statistical tracking purpose only. Coagulation Profileon 2021 aPTT Coag (Bld) [Time] 36.4 s Normal 25.1-36.5 [facility] Comment on above: Result Comment: PERF ORMED BY: [place] [address] GARCIA M[address] Performed By: #### S OFCATALINA COVID-19 JOSE #### [address] INR Coag (PPP) [Relative time] 1.5 {INR} Normal [facility] Comment on above: Result Comment: INR [...] 3 - 4.5 Performed By: #### S OFCATALINA COVID-19 JOSE #### [place] [address] [place] PT Coag (PPP) [Time] 17.3 s High 9.0-12.9 [facility] Comment on above: Performed By: #### S OFCATALINA COVID-19 JOSE #### [place] [address] [place] Color Auto (U)Ordered By: Lisa Owusu on 06-27-2022 Color (U) Yellow Yellow [facility] Complete Blood Count Auto Di ffon 06-27-2022 Basophils (Bld) [#/Vol] 0.0 10*3/uL Normal 0.0-0.2 [facility] Comment on above: Result Comment: PERF ORMED BY: [place] [address] GARCIA M[address] Performed By: #### B CAD DESIGNER DRAFTER, CBC, PP, CMP #### [place] [address] [place] Basophils/100 WBC (Bld) 0.6 % Normal . [facility] Comment on above: Performed By: #### B CAD DESIGNER DRAFTER, CBC, PP, CMP #### [facility] [address] Eosinophils (Bld) [#/Vol] 0.6 10*3/uL High 0.0-0.45 [facility] Comment on above: Performed By: #### B CAD DESIGNER DRAFTER, CBC, PP, CMP #### [address] Eosinophils/100 WBC (Bld) 9.4 % Normal . [facility] Comment on above: Performed By: #### B CAD DESIGNER DRAFTER, CBC, PP, CMP #### [address] Erythrocyte distribution width (RBC) [Ratio] 24.6 % High 12.0-14.8 [facility] Comment on above: Performed By: #### B CAD DESIGNER DRAFTER, CBC, PP, CMP #### [address] Hematocrit (Bld) [Volume fraction] 39.7 % Normal 38.8-50.0 [facility] Comment on above: Performed By: #### B CAD DESIGNER DRAFTER, CBC, PP, CMP #### [address] Hemoglobin (Bld) [Mass/Vol] 12.9 g/dL Low 13.0-17.0 [facility] Comment on above: Performed By: #### B CAD DESIGNER DRAFTER, CBC, PP, CMP #### [address] Lymphocytes (Bld) [#/Vol] 0.6 10*3/uL Low 1.00-4.8 [facility] Comment on above: Performed By: #### B CAD DESIGNER DRAFTER, CBC, PP, CMP #### [address] Lymphocytes/100 WBC (Bld) 9.3 % Normal . [facility] Comment on above: Performed By: #### B CAD DESIGNER DRAFTER, CBC, PP, CMP #### [address] MCH (RBC) [Entitic mass] 26.8 pg Low 27.5-35.2 [facility] Comment on above: Performed By: #### B CAD DESIGNER DRAFTER, CBC, PP, CMP #### [address] MCV (RBC) [Entitic vol] 82.7 fL Low 83.5-101 [facility] Comment on above: Performed By: #### B CAD DESIGNER DRAFTER, CBC, PP, CMP #### [address] Mean Corpuscular HGB Conc 32.4 g/dL Low 32.5-35.6 [facility] Comment on above: Performed By: #### B CAD DESIGNER DRAFTER, CBC, PP, CMP #### [address] Monocytes (Bld) [#/Vol] 0.6 10*3/uL Normal 0.0-0.8 [facility] Comment on above: Performed By: #### B CAD DESIGNER DRAFTER, CBC, PP, CMP #### [address] Monocytes/100 WBC (Bld) 9.4 % Normal . [facility] Comment on above: Performed By: #### B CAD DESIGNER DRAFTER, CBC, PP, CMP #### [address] Neutrophils (Bld) [#/Vol] 4.7 10*3/uL Normal 1.8-7.7 [facility] Comment on above: Performed By: #### B CAD DESIGNER DRAFTER, CBC, PP, CMP #### [address] Neutrophils/100 WBC (Bld) 71.3 % Normal . [facility] Comment on above: Performed By: #### B CAD DESIGNER DRAFTER, CBC, PP, CMP #### [address] Nucleated RBC/100 WBC (Bld) [Ratio] 0.0 % Normal 0-0.5 [facility] Comment on above: Performed By: #### B CAD DESIGNER DRAFTER, CBC, PP, CMP #### [place] [address] [place] Platelet mean volume (Bld) [Entitic vol] 8.0 fL Normal 6.6-10.1 [facility] Comment on above: Performed By: #### B CAD DESIGNER DRAFTER, CBC, PP, CMP #### [facility] [address] Platelets (Bld) [#/Vol] 163 10*3/uL Normal 150-450 [facility] Comment on above: Performed By: #### B CAD DESIGNER DRAFTER, CBC, PP, CMP #### [address] RBC (Bld) [#/Vol] 4.80 10*6/uL Normal 3.90-5.60 [facility] Comment on above: Performed By: #### B CAD DESIGNER DRAFTER, CBC, PP, CMP #### [address] WBC (Bld) [#/Vol] 6.5 10*3/uL Normal 4.5-11.0 [facility] Comment on above: Performed By: #### B CAD DESIGNER DRAFTER, CBC, PP, CMP #### [address] Comprehensive Metabolic Pane jeff 06-27-2022 Albumin [Mass/Vol] 3.1 g/dL Low 3.2-5.5 [facility] Comment on above: Performed By: #### B CAD DESIGNER DRAFTER, CBC, PP, CMP #### [address] Albumin/Globulin [Mass ratio] 0.8 {ratio} Normal [facility] Comment on above: Performed By: #### B CAD DESIGNER DRAFTER, CBC, PP, CMP #### [address] ALP [Catalytic activity/Vol] 98 U/L High 32-92 [facility] Comment on above: Performed By: #### B CAD DESIGNER DRAFTER, CBC, PP, CMP #### [address] ALT [Catalytic activity/Vol] 28 U/L Normal 10-60 [facility] Comment on above: Performed By: #### B CAD DESIGNER DRAFTER, CBC, PP, CMP #### [facility] [address] Anion gap [Moles/Vol] 15.0 mmol/L Normal 6.0-15.0 [facility] Comment on above: Performed By: #### B CAD DESIGNER DRAFTER, CBC, PP, CMP #### [facility] [address] AST [Catalytic activity/Vol] 32 U/L Normal 10-42 [facility] Comment on above: Performed By: #### B CAD DESIGNER DRAFTER, CBC, PP, CMP #### [facility] [address] Bilirubin [Mass/Vol] 0.9 mg/dL Normal 0.3-1.2 [facility] Comment on above: Performed By: #### B CAD DESIGNER DRAFTER, CBC, PP, CMP #### [facility] [address] Calcium [Mass/Vol] 9.4 mg/dL Normal 8.2-10.2 [facility] Comment on above: Performed By: #### B CAD DESIGNER DRAFTER, CBC, PP, CMP #### [facility] [address] Chloride [Moles/Vol] 96 mmol/L Normal 95-114 [facility] Comment on above: Performed By: #### B CAD DESIGNER DRAFTER, CBC, PP, CMP #### [facility] [address] [place] [address] [place] CO2 [Moles/Vol] 28.8 mmol/L Normal 22.0-30.0 [facility] Comment on above: Performed By: #### B CAD DESIGNER DRAFTER, CBC, PP, CMP #### [facility] [address] [place] [address] [place] Creatinine [Mass/Vol] 2.48 mg/dL High 0.64-1.27 [facility] Comment on above: Performed By: #### B CAD DESIGNER DRAFTER, CBC, PP, CMP #### [facility] [address] [place] [address] [place] Creatinine Clr Calc Pharmacy 33.36 Normal [facility] Comment on above: Result Comment: PERF ORMED BY: [place] [address] GARCIA M.D[address] Performed By: #### B CAD DESIGNER DRAFTER, CBC, PP, CMP #### [address] Estimated GFR ( Andra 31 [facility] Comment on above: Result Comment: GFR estimated reference range: According to KDOQI guidelines, <60 ml/min/1.73m2 is sufficient to diagnose a patient with chronic kidney disease. Performed By: #### B CAD DESIGNER DRAFTER, CBC, PP, CMP #### [address] Estimated GFR (Non- Am 26 [facility] Comment on above: Performed By: #### B CAD DESIGNER DRAFTER, CBC, PP, CMP #### [address] Globulin (S) [Mass/Vol] 4.1 g/dL [facility] Comment on above: Performed By: #### B CAD DESIGNER DRAFTER, CBC, PP, CMP #### [address] Glucose [Mass/Vol] 128 mg/dL High 70-100 [facility] Comment on above: Result Comment: [place] Glucose Reference Range is dependent on time and content of last meal. Glucose of more than 200 mg/dL in a nonstressed, ambulatory subject supports the diagnosis of Diabetes Mellitus. ADA recommended reference range Performed By: #### B CAD DESIGNER DRAFTER, CBC, PP, CMP #### [address] Potassium [Moles/Vol] 3.8 mmol/L Normal 3.5-5.1 [facility] Comment on above: Performed By: #### B CAD DESIGNER DRAFTER, CBC, PP, CMP #### [address] Protein [Mass/Vol] 7.2 g/dL Normal 6.1-7.9 [facility] Comment on above: Performed By: #### B CAD DESIGNER DRAFTER, CBC, PP, CMP #### [facility] [address] [place] [address] [place] Sodium [Moles/Vol] 136 mmol/L Normal 136-146 [facility] Comment on above: Performed By: #### B CAD DESIGNER DRAFTER, CBC, PP, CMP #### [facility] [address] [place] [address] [place] Urea nitrogen [Mass/Vol] 40 mg/dL High 9- [facility] Comment on above: Performed By: #### B CAD DESIGNER DRAFTER, CBC, PP, CMP #### [facility] [address] [place] [address] [place] Creatinine and Glomerular fi ltration rate.predicted panel (S/P/Bld)Ordered By: Melva Owusu on 06-27-2022 Creatinine [Mass/Vol] 2.48 mg/dL 0.64-1.27 [facility] Eosinophils Auto (Bld) [#/Vo l]Ordered By: Melva Owusu on 06-27-2022 Eosinophils (Bld) [#/Vol] 0.6 10*3/uL 0.0-0.45 [facility] Eosinophils/100 WBC Auto (Bl d)Ordered By: Melva Owusu on 06-27-2022 Eosinophils/100 WBC (Bld) 9.4 % . [facility] Erythrocyte distribution wid th Auto (RBC) [Ratio]Ordered By: Melva Owusu on 06-27-2022 Erythrocyte distribution width (RBC) [Ratio] 24.6 % 12.0-14.8 [facility] Estimated glomerular filtrat ion rate (GFR) non- AmericanOrdered By: Melva Owusu on 06-27-2022 GFR/1.73 sq M.predicted among non-blacks MDRD (S/P/Bld) [Vol rate/Area] 26 mL/Min [facility] Globulin Calc (S) [Mass/Vol] Ordered By: Melva Owusu on 06-27-2022 Globulin (S) [Mass/Vol] 4.1 g/dL [facility] Hematocrit Auto (Bld) [Volum e fraction]Ordered By: Melva Owusu on 06-27-2022 Hematocrit (Bld) [Volume fraction] 39.7 % 38.8-50.0 [facility] Hemoglobin [Mass/volume] in BloodOrdered By: Melva Owusu on 06-27-2022 Hemoglobin (Bld) [Mass/Vol] 12.9 g/dL 13.0-17.0 [facility] Ketones Auto test strip (U) [Mass/Vol]Ordered By: Melva Owusu on 06-27-2022 Ketones (U) [Mass/Vol] Negative Negative [facility] Laboratory - Chemistry and C hemistry - challengeOrdered By: Melva Owusu on 06-27-2022 Natriuretic peptide B (Bld) [Mass/Vol] 367.0 pg/mL 5-100 [facility] Laboratory - CoagulationOrde red By: Melva Owusu on 06-27-2022 PT Coag (PPP) [Time] 17.3 s 9.0-12.9 [facility] Laboratory - Hematology and Cell countsOrdered By: Melva Owusu on 06-27-2022 Nucleated RBC/100 WBC (Bld) [Ratio] 0.0 % 0-0.5 [facility] Lactic Acidon 06-27-2022 Lactate [Moles/Vol] 1.7 mmol/L Normal 0.5-2.2 [facility] Comment on above: Result Comment: PERF ORMED BY: [place] [address] GARCIA M.D[address] Performed By: #### C UBLD, LACTIC #### [address] Leukocytes [#/volume] in Blo od by Automated countOrdered By: Melva Owusu on 06-27-2022 WBC (Bld) [#/Vol] 6.5 10*3/uL 4.5-11.0 [facility] Lymphocytes Auto (Bld) [#/Vo l]Ordered By: Melva Owusu on 06-27-2022 Lymphocytes (Bld) [#/Vol] 0.6 10*3/uL 1.00-4.8 [facility] Lymphocytes/100 WBC Auto (Bl d)Ordered By: Melva Owusu on 06-27-2022 Lymphocytes/100 WBC (Bld) 9.3 % . [facility] MCH Auto (RBC) [Entitic mass ]Ordered By: Melva Owusu on 06-27-2022 MCH (RBC) [Entitic mass] 26.8 pg 27.5-35.2 [facility] MCHC Auto (RBC) [Mass/Vol]Or dered By: Melva Owusu on 06-27-2022 MCHC (RBC) [Mass/Vol] 32.4 g/dL 32.5-35.6 [facility] MCV Auto (RBC) [Entitic vol] Ordered By: Melva Owusu on 06-27-2022 MCV (RBC) [Entitic vol] 82.7 fL 83.5-101 [facility] Monocytes Auto (Bld) [#/Vol] Ordered By: Melva Owusu on 06-27-2022 Monocytes (Bld) [#/Vol] 0.6 10*3/uL 0.0-0.8 [facility] Monocytes/100 WBC Auto (Bld) Ordered By: Melva Owusu on 06-27-2022 Monocytes/100 WBC (Bld) 9.4 % . [facility] Neutrophils Auto (Bld) [#/Vo l]Ordered By: Melva Owusu on 06-27-2022 Neutrophils (Bld) [#/Vol] 4.7 10*3/uL 1.8-7.7 [facility] Neutrophils/100 WBC Auto (Bl d)Ordered By: Melva Owusu on 06-27-2022 Neutrophils/100 WBC (Bld) 71.3 % . [facility] Nitrite Test strip Ql (U)Ord ered By: Melva Owusu on 06-27-2022 Nitrite Ql (U) Negative Negative [facility] No Panel InformationOrdered By: Melva Owusu on 06-27-2022 Estimated GFR () 31 mL/Min [facility] Comment on above: GFR estimated refere nce range: According to KDOQI guidelines, <60 ml/min/1.73m2 is sufficient to diagnose a patient with chronic kidney disease. Pharmacy Creatinine Clearance (Chem 33.36 [facility] No Panel InformationOrdered By: Balwinder Chavarria on 06-27-2022 SARS Antigen (LFIA) [facility] Platelet mean volume Auto (B ld) [Entitic vol]Ordered By: Melva Owusu on 06-27-2022 Platelet mean volume (Bld) [Entitic vol] 8.0 fL 6.6-10.1 [facility] Platelet poor plasma interna tional normalized ratio (INR) by coagulation assay (relatOrdered By: Melva Owusu on 06-27-2022 INR Coag (PPP) [Relative time] 1.5 {INR} [facility] Comment on above: INR Therapeutic Rang [...] 06-27-2022 Platelets (Bld) [#/Vol] 163 10*3/uL 150-450 [facility] Protein Auto test strip (U) [Mass/Vol]Ordered By: Melva Owusu on 06-27-2022 Protein (U) [Mass/Vol] Negative Negative [facility] Protein [Mass/volume] in Ser um or PlasmaOrdered By: Melva Owusu on 06-27-2022 Protein [Mass/Vol] 7.2 g/dL 6.1-7.9 [facility] RBC Auto (Bld) [#/Vol]Ordere d By: Melva Owusu on 06-27-2022 RBC (Bld) [#/Vol] 4.80 10*6/uL 3.90-5.60 [facility] Serum or plasma alanine [place] otransferase measurement without P-5'-P (enzymatic activiOrdered By: Melva Owusu on 06-27-2022 ALT No additional P-5'-P [Catalytic activity/Vol] 28 U/L 10-60 [facility] Serum or plasma albumin/glob ulin mass ratioOrdered By: Melva Ouwsu on 06-27-2022 Albumin/Globulin [Mass ratio] 0.8 {ratio} [facility] Serum or plasma alkaline mumtaz sphatase measurement (enzymatic activity/volume)Ordered By: Melva Owusu on 06-27-2022 ALP [Catalytic activity/Vol] 98 U/L 32-92 [facility] Serum or plasma anion gap de terminationOrdered By: Melva Owusu on 06-27-2022 Anion gap [Moles/Vol] 15.0 mmol/L 6.0-15.0 [facility] Serum or plasma aspartate am inotransferase measurement (enzymatic activity/volume)Ordered By: Mleva Owusu on 06-27-2022 AST [Catalytic activity/Vol] 32 U/L 10-42 [facility] Serum or plasma calcium brii urement (mass/volume)Ordered By: Melva Owusu on 06-27-2022 Calcium [Mass/Vol] 9.4 mg/dL 8.2-10.2 [facility] Serum or plasma chloride edgar surement (moles/volume)Ordered By: Melva Owusu on 06-27-2022 Chloride [Moles/Vol] 96 mmol/L 95-114 [facility] Serum or plasma glucose brii urement (mass/volume)Ordered By: Melva Owusu on 06-27-2022 Glucose [Mass/Vol] 128 mg/dL 70-100 [facility] Comment on above: ADA recommended refe rence rangeRandom Glucose Reference Range is dependent on time and content of last meal. Glucose of more than 200 mg/dL in a nonstressed, ambulatory subject supports the diagnosis of Diabetes Mellitus. Serum or plasma potassium me asurement (moles/volume)Ordered By: Melva Owusu on 06-27-2022 Potassium [Moles/Vol] 3.8 mmol/L 3.5-5.1 [facility] Serum or plasma sodium measu rement (moles/volume)Ordered By: Melva Owuus on 06-27-2022 Sodium [Moles/Vol] 136 mmol/L 136-146 [facility] Serum or plasma total biliru bin measurement (mass/volume)Ordered By: Melva Kristenglendy on 06-27-2022 Bilirubin [Mass/Vol] 0.9 mg/dL 0.3-1.2 [facility] Serum or plasma total carbon dioxide measurement (moles/volume)Ordered By: Melva Kristenglendy on 06-27-2022 CO2 [Moles/Vol] 28.8 mmol/L 22.0-30.0 [facility] Serum or plasma urea nitroge n measurement (mass/volume)Ordered By: Melva Petersonhijose francisco on 06-27-2022 Urea nitrogen [Mass/Vol] 40 mg/dL 05-31 [facility] Jose Ag Negativeon 06-27-20 Jose Ag Negative Negative Normal Negative [facility] Comment on above: Result Comment: This is a duplicate Jose SARS Antigen (MORIAH) result to be used for statistical tracking purpose only. PERFORMED BY: [place] [address] GARCIA M.D[address] Performed By: #### S JORGE COVID-19 JOSE #### [facility] [address] [place] [address] Specific gravity Auto test s trip (U) [Rel density]Ordered By: Melva Owusu on 06-27-2022 Specific gravity (U) [Rel density] 1.012 1.001-1.030 [facility] Urinalysison 06-27-2022 Appearance (U) Clear Normal Clear [facility] Comment on above: Order Comment: Name Collection Type:: Clean-Voided Midstream Performed By: #### U A #### [facility] [address] [place] [address] [place] Bilirubin,Urine Negative Normal Negative [facility] Comment on above: Order Comment: Name Collection Type:: Clean-Voided Midstream Performed By: #### U A #### [place] [address] [place] Color (U) Yellow Normal Yellow [facility] Comment on above: Order Comment: Name Collection Type:: Clean-Voided Midstream Performed By: #### U A #### [facility] [address] [place] [address] Glucose Ql (U) Normal Normal Normal [facility] Comment on above: Order Comment: Name Collection Type:: Clean-Voided Midstream Performed By: #### U A #### [facility] [address] [place] [address] Ketones Ql (U) Negative Normal Negative [facility] Comment on above: Order Comment: Name Collection Type:: Clean-Voided Midstream Performed By: #### U A #### [facility] [address] [place] [address] Leukocyte esterase Test strip Ql (U) Negative Normal Negative [facility] Comment on above: Order Comment: Name Collection Type:: Clean-Voided Midstream Performed By: #### U A #### [facility] [address] [place] [address] [place] Nitrite,Urine Negative Normal Negative [facility] Comment on above: Order Comment: Name Collection Type:: Clean-Voided Midstream Performed By: #### U A #### [facility] [address] [place] [address] Occult Blood,Urine Negative Normal Negative [facility] Comment on above: Order Comment: Name Collection Type:: Clean-Voided Midstream Result Comment: PERF ORMED BY: [place] [address] GARCIA M.D[address] Performed By: #### U A #### [facility] [address] [place] [address] [place] pH (U) 6.0 [pH] Normal 5.0-9.0 [facility] Comment on above: Order Comment: Name Collection Type:: Clean-Voided Midstream Performed By: #### U A #### [facility] [address] [place] [address] [place] Protein,Urine Negative Normal Negative [facility] Comment on above: Order Comment: Name Collection Type:: Clean-Voided Midstream Performed By: #### U A #### [facility] [address] Specificy [place],Urine 1.012 Normal 1.001-1.030 [facility] Comment on above: Order Comment: Name Collection Type:: Clean-Voided Midstream Performed By: #### U A #### [facility] [address] [place] [address] [place] Urobilinogen,Urine Normal Normal Normal [facility] Comment on above: Order Comment: Name Collection Type:: Clean-Voided Midstream Performed By: #### U A #### [facility] [address] [place] [address] [place] Urine clarity by refractomet ry automatedOrdered By: Melva Owusu on 06-27-2022 Clarity Refractometry automated (U) Clear Clear [facility] Urine glucose measurement by automated test strip (mass/volume)Ordered By: Melva Owusu on 06-27-2022 Glucose Auto test strip (U) [Mass/Vol] Normal mg/dL Normal [facility] Urine hemoglobin detection b y automated test stripOrdered By: Melva Owusu on 06-27-2022 Hemoglobin Auto test strip Ql (U) Negative Negative [facility] Urine lactic acid measuremen tOrdered By: Melva Owusu on 06-27-2022 Lactate (U) [Moles/Vol] 1.7 mmol/L 0.5-2.2 [facility] Urine leukocyte esterase det ection by automated test stripOrdered By: Melva Owusu on 06-27-2022 Leukocyte esterase Auto test strip Ql (U) Negative Negative [facility] Urobilinogen Auto test strip (U) [Mass/Vol]Ordered By: Melva Owusu on 06-27-2022 Urobilinogen (U) [Mass/Vol] Normal mg/dL Normal [facility] XR chest 2V*on 06-27-2022 XR chest 2V* [facility] [address] [place] [address] XRay Report Signed Patient: Man Patel MR#: [id number] : 1950 Acct:[id number] Age/Sex: 72 / M ADM Date: 06/27/22 Loc: ER Room: Type: [facility] ER Attending Dr: Copies to: GAIL [...] Cris Johnson M.D.06/27/2022 3:42 PM Dictation Location: [place] [address] Transcribed By: [facility] 06/27/221541 Dictated By: Cris Johnson MD 06/27/221539 Signed By: 06/27/221541 Normal [facility] pH Auto test strip (U)Ordere d By: Melva Owusu on 06-27-2022 pH (U) 6.0 [pH] 5.0-9.0 [facility] ECHOCARDIO M/2D COMPLETEon 1 ECHOCARDIO M/2D COMPLETE Normal [facility] BASIC METABOLIC PANELon 09-0 Calcium [Mass/Vol] 8.6 mg/dL Normal 8.6-10.3 [facility] Comment on above: Order Comment: Yes: Add to Previous draw if able Performed By: #### 5 0103 #### [facility] [address] [place] [address], [facility] Chloride [Moles/Vol] 97 mmol/L Low 98-107 [facility] Comment on above: Order Comment: Yes: Add to Previous draw if able Performed By: #### 5 0103 #### [facility] [address] [place] [address], [facility] CO2 [Moles/Vol] 30 mmol/L Normal 21-31 [facility] Comment on above: Order Comment: Yes: Add to Previous draw if able Performed By: #### 5 0103 #### [facility] [address] [place] [address], [facility] Creatinine [Mass/Vol] 2.14 mg/dL High 0.70-1.30 [facility] Comment on above: Order Comment: Yes: Add to Previous draw if able Performed By: #### 5 0103 #### [facility] [address] [place] [address], [facility] EGFR 32 ml/min/1.73sq m Abnormal >60 [facility] Comment on above: Order Comment: Yes: Add to Previous draw if able Result Comment: [facility]'s estimated glomerular filtration rate (eGFR) will [...] individuals. Performed By: #### 5 0103 #### [facility] [address] [place] [address], [place] Glucose [Mass/Vol] 90 mg/dL Normal 70-100 [facility] Comment on above: Order Comment: Yes: Add to Previous draw if able Performed By: #### 5 0103 #### [facility] [address] [place] [address], [place] Potassium [Moles/Vol] 3.7 mmol/L Normal 3.5-5.1 [facility] Comment on above: Order Comment: Yes: Add to Previous draw if able Performed By: #### 5 0103 #### [facility] [address] Sodium [Moles/Vol] 135 mmol/L Low 136-145 [facility] Comment on above: Order Comment: Yes: Add to Previous draw if able Performed By: #### 5 0103 #### [facility] [address] Urea nitrogen [Mass/Vol] 32 mg/dL High 7-25 [facility] Comment on above: Order Comment: Yes: Add to Previous draw if able Performed By: #### 5 0103 #### [facility] [address] [facility] [address] *SARS-CoV-2 COVID-19on 05-07 SARS-CoV-2 (COVID-19) RNA ELIAZBETH+probe Ql (Unsp spec) Detected Critically abnormal Not Detected [facility] Comment on above: Order Comment: The A ptima SARS-CoV-2 assay is a nucleic acid amplification testintended for the qualitative detection of RNA from SARS-CoV-2 isolatedand purified from nasopharyngeal (CAD DESIGNER DRAFTER), oropharyngeal (OP), nasal swab,sputum, and bronchoalveolar lavage (BAL) specimens from patients withsigns and symptoms of infection who are suspected of COVID-19.Results are for the identification of SARS-CoV-2 RNA. The SARS-CoV-2 RNAis generally detectable during the acute phase of infection.The Aptima SARS-CoV-2 Assay on the [employer] system isintended for use by laboratory personnel specifically instructed andtrained in the operation of the [employer] system. TheAptima SARS-CoV-2 assay is only [...] other viruses. Performed By: #### 3 [id number] ####[facility] BASIC METABOLIC PANELon 08-3 -2021 Calcium [Mass/Vol] 8.4 mg/dL Low 8.6-10.3 [facility] Comment on above: Order Comment: No: D o not add to previous draw Performed By: #### 0 0071, [id number], [id number] ####[facility] Chloride [Moles/Vol] 97 mmol/L Low 98-107 [facility] Comment on above: Order Comment: No: D o not add to previous draw Performed By: #### 0 0071, [id number], [id number] ####[facility] CO2 [Moles/Vol] 30 mmol/L Normal 21-31 [facility] Comment on above: Order Comment: No: D o not add to previous draw Performed By: #### 0 0071, [id number], [id number] ####[facility] Creatinine [Mass/Vol] 2.06 mg/dL High 0.70-1.30 [facility] Comment on above: Order Comment: No: D o not add to previous draw Performed By: #### 0 0071, [id number], [id number] ####[facility] [facility] EGFR 34 ml/min/1.73sq m Abnormal >60 [facility] Comment on above: Order Comment: No: D o not add to previous draw Result Comment: [facility]'s estimated glomerular filtration rate (eGFR) will [...] of individuals. Performed By: #### 0 0071, [id number], [id number] ####[facility] [place] [address], [facility] Glucose [Mass/Vol] 86 mg/dL Normal 70-100 [facility] Comment on above: Order Comment: No: D o not add to previous draw Performed By: #### 0 0071, [id number], 94765 ####[facility] [place] [address], [facility] Potassium [Moles/Vol] 3.7 mmol/L Normal 3.5-5.1 [facility] Comment on above: Order Comment: No: D o not add to previous draw Performed By: #### 0 0071, 99351, [id number] ####[facility] [place] [address], [facility] Sodium [Moles/Vol] 135 mmol/L Low 136-145 [facility] Comment on above: Order Comment: No: D o not add to previous draw Performed By: #### 0 0071, 64819, 06990 ####[facility] [place] [address], [facility] Urea nitrogen [Mass/Vol] 35 mg/dL High 7-25 [facility] Comment on above: Order Comment: No: D o not add to previous draw Performed By: #### 0 0071, 56414, 68533 ####[facility] [place] [address], [facility] CBC COMPLETE BLOOD COUNTon 0 8- Erythrocyte distribution width (RBC) [Ratio] 21.2 % High 11.5-15.0 [facility] Comment on above: Order Comment: No: D o not add to previous draw Performed By: #### 5 0608 #### [facility] [address] [place] [address], [facility] Hematocrit (Bld) [Volume fraction] 36.1 % Low 39.0-50.0 [facility] Comment on above: Order Comment: No: D o not add to previous draw Performed By: #### 5 0608 #### [facility] [address] [place] [address], [facility] Hemoglobin (Bld) [Mass/Vol] 10.4 g/dL Low 13.0-17.0 [facility] Comment on above: Order Comment: No: D o not add to previous draw Performed By: #### 5 0608 #### [facility] [address] [place] [address], [facility] MCH (RBC) [Entitic mass] 23.6 pg Low 27.0-33.0 [facility] Comment on above: Order Comment: No: D o not add to previous draw Performed By: #### 5 0608 #### [facility] [address] [place] [id number], [facility] MCHC (RBC) [Mass/Vol] 28.8 g/dL Low 32.0-35.0 [facility] Comment on above: Order Comment: No: D o not add to previous draw Performed By: #### 5 0608 #### [facility] [address] [place] [address], [facility] MCV (RBC) [Entitic vol] 81.9 fL Low 82.0-98.0 [facility] Comment on above: Order Comment: No: D o not add to previous draw Performed By: #### 5 0608 #### [facility] [address] [place] [address], [facility] Nucleated RBC/100 WBC (Bld) [Ratio] 0 % Normal 0-0 [facility] Comment on above: Order Comment: No: D o not add to previous draw Performed By: #### 5 0608 #### [facility] [address] [place] [address], [facility] PLAT CNT 207 10*3/uL Normal 150-400 [facility] Comment on above: Order Comment: No: D o not add to previous draw Performed By: #### 5 0608 #### [facility] [address] [place] [address], [facility] RBC (Bld) [#/Vol] 4.41 10*6/uL Normal 4.20-5.70 [facility] Comment on above: Order Comment: No: D o not add to previous draw Performed By: #### 5 0608 #### [facility] [address] [place] [address], [facility] WBC (Bld) [#/Vol] 4.60 10*3/uL Normal 4.00-10.60 [facility] Comment on above: Order Comment: No: D o not add to previous draw Performed By: #### 5 0608 #### [facility] [address] [facility] [place] [address], [facility] MAGNESIUM BLOODon 05-07-2022 Magnesium [Mass/Vol] 2.3 mg/dL Normal 1.9-2.7 [facility] Comment on above: Order Comment: No: D o not add to previous draw Performed By: #### 0 0071, 76159, 88695 ####[facility] [place] [address], [facility] PHOSPHORUS BLOODon Phosphate [Mass/Vol] 2.6 mg/dL Normal 2.5-5.0 [facility] Comment on above: Order Comment: No: D o not add to previous draw Performed By: #### 0 0071, 96148, 01128 ####[facility] [place] [address], [facility] POC SARS COV2 ANTIGEN POSITI VEon 05-07-2022 POC SARS COV2 ANTIGEN POS Positive Critically abnormal NEGATIVE [facility] Comment on above: Result Comment: Posi tive results indicate the presence of viral antigens, but clinical correlation with patient history and other diagnostic information is necessary to determine infection status. Positive results do not rule out bacterial infection or co-infection with other viruses. The agent detected may not be the definite cause of disease. Laboratories within the [facility] and its territories are required to report all results to the appropriate public health authorities. The Clarity COVID-19 Antigen Rapid Test Cassette is a rapid chromatographic immunoassay intended for the qualitative detection of the nucleocapsid protein antigen from SARS-CoV-2 in direct nasopharyngeal swab (CAD DESIGNER DRAFTER) specimens from individuals who are suspected of [...] Accreditation. Performed By: #### 3 2045 #### [facility] [address] [facility] [address], [facility] BASIC METABOLIC PANELon 04-09 Calcium [Mass/Vol] 8.3 mg/dL Low 8.6-10.3 [facility] Comment on above: Order Comment: No: D o not add to previous draw Performed By: #### 7 0207 #### [facility] [address] [place] [address], [facility] Chloride [Moles/Vol] 99 mmol/L Normal 98-107 [facility] Comment on above: Order Comment: No: D o not add to previous draw Performed By: #### 7 0207 #### [facility] [address] [place] [address], [place] CO2 [Moles/Vol] 30 mmol/L Normal 21-31 [facility] Comment on above: Order Comment: No: D o not add to previous draw Performed By: #### 7 0207 #### [facility] [address] [place] [address], [facility] Creatinine [Mass/Vol] 2.08 mg/dL High 0.70-1.30 [facility] Comment on above: Order Comment: No: D o not add to previous draw Performed By: #### 7 0207 #### [facility] [address] [place] [address], [facility] EGFR 34 ml/min/1.73sq m Abnormal >60 [facility] Comment on above: Order Comment: No: D o not add to previous draw Result Comment: [facility]'s estimated glomerular filtration rate (eGFR) will [...] individuals. Performed By: #### 7 0207 #### [facility] [address] [place] [address], [facility] Glucose [Mass/Vol] 91 mg/dL Normal 70-100 [facility] Comment on above: Order Comment: No: D o not add to previous draw Performed By: #### 7 0207 #### [facility] [address] [place] [address], [facility] Potassium [Moles/Vol] 3.5 mmol/L Normal 3.5-5.1 [facility] Comment on above: Order Comment: No: D o not add to previous draw Performed By: #### 7 0207 #### [facility] [address] [place] [address], [place] Sodium [Moles/Vol] 137 mmol/L Normal 136-145 [facility] Comment on above: Order Comment: No: D o not add to previous draw Performed By: #### 7 0207 #### [facility] [address] [place] [address], [facility] Urea nitrogen [Mass/Vol] 36 mg/dL High 7-25 [facility] Comment on above: Order Comment: No: D o not add to previous draw Performed By: #### 7 0207 #### [facility] [address] [facility]. [address] TSH3 WITH REFLEX FT4on 05-06 TSH 3RD GENERATION 2.46 uIU/mL Normal 0.34-5.60 [facility] Comment on above: Performed By: #### 7 0207 #### [facility] [address] [facility]. [address] BASIC METABOLIC PANELon 04-09 Calcium [Mass/Vol] 7.9 mg/dL Low 8.6-10.3 [facility] Comment on above: Order Comment: Check Pacemaker/AICD Lead Position, Chest X-ray PA \EANDE\ LAT in Dept ;DO NOT lift affected arm above shoulder. S/P pacemaker/ICD implant. Verify lead placement Performed By: #### 0 0071 ####[facility] Chloride [Moles/Vol] 99 mmol/L Normal 98-107 [facility] Comment on above: Order Comment: Check Pacemaker/AICD Lead Position, Chest X-ray PA \EANDE\ LAT in Dept ;DO NOT lift affected arm above shoulder. S/P pacemaker/ICD implant. Verify lead placement Performed By: #### 0 0071 ####[facility] CO2 [Moles/Vol] 28 mmol/L Normal 21-31 [facility] Comment on above: Order Comment: Check Pacemaker/AICD Lead Position, Chest X-ray PA \EANDE\ LAT in Dept ;DO NOT lift affected arm above shoulder. S/P pacemaker/ICD implant. Verify lead placement Performed By: #### 0 0071 ####[facility] [place] [address], [facility] Creatinine [Mass/Vol] 2.11 mg/dL High 0.70-1.30 [facility] Comment on above: Order Comment: Check Pacemaker/AICD Lead Position, Chest X-ray PA \EANDE\ LAT in Dept ;DO NOT lift affected arm above shoulder. S/P pacemaker/ICD implant. Verify lead placement Performed By: #### 0 0071 ####[place] [id number] [address] EGFR 33 ml/min/1.73sq m Abnormal >60 [facility] Comment on above: Order Comment: Check Pacemaker/AICD Lead Position, Chest X-ray PA \EANDE\ LAT in Dept ;DO NOT lift affected arm above shoulder. S/P pacemaker/ICD implant. Verify lead placement Result Comment: [facility]'s estimated glomerular filtration rate (eGFR) will [...] of individuals. Performed By: #### 0 0071 ####[facility] [place] [address], [facility] Glucose [Mass/Vol] 95 mg/dL Normal 70-100 [facility] Comment on above: Order Comment: Check Pacemaker/AICD Lead Position, Chest X-ray PA \EANDE\ LAT in Dept ;DO NOT lift affected arm above shoulder. S/P pacemaker/ICD implant. Verify lead placement Performed By: #### 0 0071 ####[facility] Potassium [Moles/Vol] 3.5 mmol/L Normal 3.5-5.1 [facility] Comment on above: Order Comment: Check Pacemaker/AICD Lead Position, Chest X-ray PA \EANDE\ LAT in Dept ;DO NOT lift affected arm above shoulder. S/P pacemaker/ICD implant. Verify lead placement Performed By: #### 0 0071 ####[address] Sodium [Moles/Vol] 137 mmol/L Normal 136-145 [facility] Comment on above: Order Comment: Check Pacemaker/AICD Lead Position, Chest X-ray PA \EANDE\ LAT in Dept ;DO NOT lift affected arm above shoulder. S/P pacemaker/ICD implant. Verify lead placement Performed By: #### 0 0071 ####[address] Urea nitrogen [Mass/Vol] 37 mg/dL High 7-25 [facility] Comment on above: Order Comment: Check Pacemaker/AICD Lead Position, Chest X-ray PA \EANDE\ LAT in Dept ;DO NOT lift affected arm above shoulder. S/P pacemaker/ICD implant. Verify lead placement Performed By: #### 0 0071 ####[address] CBC COMPLETE BLOOD COUNTon 0 - Erythrocyte distribution width (RBC) [Ratio] 21.2 % High 11.5-15.0 [facility] Comment on above: Order Comment: Unkno wn Performed By: #### 5 0608 ####[place] [id number] [address] Hematocrit (Bld) [Volume fraction] 35.5 % Low 39.0-50.0 [facility] Comment on above: Order Comment: Unkno wn Performed By: #### 5 0608 ####[address] [place] [address], [place] Hemoglobin (Bld) [Mass/Vol] 10.5 g/dL Low 13.0-17.0 [facility] Comment on above: Order Comment: Unkno wn Performed By: #### 5 0608 ####[place] [address] [address] MCH (RBC) [Entitic mass] 23.8 pg Low 27.0-33.0 [facility] Comment on above: Order Comment: Unkno wn Performed By: #### 5 0608 ####[address] MCHC (RBC) [Mass/Vol] 29.6 g/dL Low 32.0-35.0 [facility] Comment on above: Order Comment: Unkno wn Performed By: #### 5 0608 ####[address] MCV (RBC) [Entitic vol] 80.5 fL Low 82.0-98.0 [facility] Comment on above: Order Comment: Unkno wn Performed By: #### 5 0608 ####[address] Nucleated RBC/100 WBC (Bld) [Ratio] 0 % Normal 0-0 [facility] Comment on above: Order Comment: Unkno wn Performed By: #### 5 0608 ####[address] PLAT CNT 161 10*3/uL Normal 150-400 [facility] Comment on above: Order Comment: Unkno wn Performed By: #### 5 0608 ####[address] RBC (Bld) [#/Vol] 4.41 10*6/uL Normal 4.20-5.70 [facility] Comment on above: Order Comment: Unkno wn Performed By: #### 5 0608 ####[facility] [place] [address], [facility] WBC (Bld) [#/Vol] 4.71 10*3/uL Normal 4.00-10.60 [facility] Comment on above: Order Comment: Unkno wn Performed By: #### 5 0608 ####[facility] [facility].[address] BASIC METABOLIC PANELon 08-2 -2021 Calcium [Mass/Vol] 8.1 mg/dL Low 8.6-10.3 [facility] Comment on above: Order Comment: No: D o not add to previous draw Performed By: #### 3 2044 #### [facility] [address] [place] [address], [facility] Chloride [Moles/Vol] 97 mmol/L Low 98-107 [facility] Comment on above: Order Comment: No: D o not add to previous draw Performed By: #### 3 2044 #### [facility] [address] [place] [address], [facility] CO2 [Moles/Vol] 31 mmol/L Normal 21-31 [facility] Comment on above: Order Comment: No: D o not add to previous draw Performed By: #### 3 2044 #### [facility] [address] [place] [address], [facility] Creatinine [Mass/Vol] 1.98 mg/dL High 0.70-1.30 [facility] Comment on above: Order Comment: No: D o not add to previous draw Performed By: #### 3 2044 #### [facility] [address] [place] [address], [facility] EGFR 36 ml/min/1.73sq m Abnormal >60 [facility] Comment on above: Order Comment: No: D o not add to previous draw Result Comment: [facility]'s estimated glomerular filtration rate (eGFR) will [...] individuals. Performed By: #### 3 2044 #### [facility] [address] [place] [address], [facility] Glucose [Mass/Vol] 88 mg/dL Normal 70-100 [facility] Comment on above: Order Comment: No: D o not add to previous draw Performed By: #### 3 2044 #### [facility] [address] [place] [address], [facility] Potassium [Moles/Vol] 3.5 mmol/L Normal 3.5-5.1 [facility] Comment on above: Order Comment: No: D o not add to previous draw Performed By: #### 3 2044 #### [facility] [address] [place] [address], [facility] Sodium [Moles/Vol] 137 mmol/L Normal 136-145 [facility] Comment on above: Order Comment: No: D o not add to previous draw Performed By: #### 3 2044 #### [facility] [address] [place] [address], [facility] Urea nitrogen [Mass/Vol] 35 mg/dL High 7-25 [facility] Comment on above: Order Comment: No: D o not add to previous draw Performed By: #### 3 2044 #### [facility] [address] [place] [address], [facility] CBC COMPLETE BLOOD COUNTon 0 8- Erythrocyte distribution width (RBC) [Ratio] 21.2 % High 11.5-15.0 [facility] Comment on above: Order Comment: No: D o not add to previous draw Performed By: #### 5 0608 ####[facility] Hematocrit (Bld) [Volume fraction] 34.6 % Low 39.0-50.0 [facility] Comment on above: Order Comment: No: D o not add to previous draw Performed By: #### 5 0608 ####[facility] [place] [address] Hemoglobin (Bld) [Mass/Vol] 10.2 g/dL Low 13.0-17.0 [facility] Comment on above: Order Comment: No: D o not add to previous draw Performed By: #### 5 0608 ####[address] MCH (RBC) [Entitic mass] 23.8 pg Low 27.0-33.0 [facility] Comment on above: Order Comment: No: D o not add to previous draw Performed By: #### 5 0608 ####[address] MCHC (RBC) [Mass/Vol] 29.5 g/dL Low 32.0-35.0 [facility] Comment on above: Order Comment: No: D o not add to previous draw Performed By: #### 5 0608 ####[facility] [place] [address] MCV (RBC) [Entitic vol] 80.8 fL Low 82.0-98.0 [facility] Comment on above: Order Comment: No: D o not add to previous draw Performed By: #### 5 0608 ####[address] Nucleated RBC/100 WBC (Bld) [Ratio] 0 % Normal 0-0 [facility] Comment on above: Order Comment: No: D o not add to previous draw Performed By: #### 5 0608 ####[facility] [place] [address], [facility] PLAT CNT 131 10*3/uL Low 150-400 [facility] Comment on above: Order Comment: No: D o not add to previous draw Performed By: #### 5 0608 ####[facility] RBC (Bld) [#/Vol] 4.28 10*6/uL Normal 4.20-5.70 [facility] Comment on above: Order Comment: No: D o not add to previous draw Performed By: #### 5 0608 ####[facility] [place] [address], [facility] WBC (Bld) [#/Vol] 4.58 10*3/uL Normal 4.00-10.60 [facility] Comment on above: Order Comment: No: D o not add to previous draw Performed By: #### 5 0608 ####[facility] Cardiovascular Lab Reporton 05-04-2022 Cardiovascular Lab Report [facility] Patient Name: [facility] Man Ace MR #: [id number] Department of Physician: Fidel Scott M.D. Division of Service Date: 05/03/2022 Cardiology Birthdate: 1950 Adult Cardiovascular Room #: 5AB [id number] Services [facility] [address] [place] [address] Cardiovascular Laboratory Report FINAL IMPRESSIONS: 1. Moderately [...] over the hub of the previously placed Baldwin sheath. A Evangelista catheter was advanced through Baldwin sheath; pressures were measured in the right atrium, right ventricle, pulmonary artery, and pulmonary capillary wedge positions. Oxygen saturations were obtained and cardiac output/cardiac index was calculated using the modified Eliud principle. The Evangelista catheter was removed. The Baldwin sheath was to be removed with application [...] P Mark Iniguez M.D. Date Dict: 05/03/2022/05:07 Vale/Mark Iniguez M.D. Date Trans: 05/04/2022 05:38 Keerthi/surekha [id number] cc: Li Cintron M.D. Heart Failure/ Transplant Mailstop 0784 [facility] [address] Normal [facility] BASIC METABOLIC PANELon 04-09 Calcium [Mass/Vol] 7.8 mg/dL Low 8.6-10.3 [facility] Comment on above: Order Comment: Check Pacemaker/AICD Lead Position, Chest X-ray PA \EANDE\ LAT in Dept ;DO NOT lift affected arm above shoulder. S/P pacemaker/ICD implant. Verify lead placement Performed By: #### 4 1000, 80408, 02898 ####[facility] [facility].[address] Chloride [Moles/Vol] 98 mmol/L Normal 98-107 [facility] Comment on above: Order Comment: Check Pacemaker/AICD Lead Position, Chest X-ray PA \EANDE\ LAT in Dept ;DO NOT lift affected arm above shoulder. S/P pacemaker/ICD implant. Verify lead placement Performed By: #### 4 1000, 01689, 29875 ####[facility] [facility].[address] CO2 [Moles/Vol] 31 mmol/L Normal 21-31 [facility] Comment on above: Order Comment: Check Pacemaker/AICD Lead Position, Chest X-ray PA \EANDE\ LAT in Dept ;DO NOT lift affected arm above shoulder. S/P pacemaker/ICD implant. Verify lead placement Performed By: #### 4 1000, 21475, 89237 ####[facility] [facility].[address] Creatinine [Mass/Vol] 2.19 mg/dL High 0.70-1.30 [facility] Comment on above: Order Comment: Check Pacemaker/AICD Lead Position, Chest X-ray PA \EANDE\ LAT in Dept ;DO NOT lift affected arm above shoulder. S/P pacemaker/ICD implant. Verify lead placement Performed By: #### 4 1000, 39076, 33709 ####[facility] [facility].[address] EGFR 32 ml/min/1.73sq m Abnormal >60 [facility] Comment on above: Order Comment: Check Pacemaker/AICD Lead Position, Chest X-ray PA \EANDE\ LAT in Dept ;DO NOT lift affected arm above shoulder. S/P pacemaker/ICD implant. Verify lead placement Result Comment: [facility]'s estimated glomerular filtration rate (eGFR) will [...] of individuals. Performed By: #### 4 1000, 59572, 94368 ####[facility] [place] [address], [facility] Glucose [Mass/Vol] 95 mg/dL Normal 70-100 [facility] Comment on above: Order Comment: Check Pacemaker/AICD Lead Position, Chest X-ray PA \EANDE\ LAT in Dept ;DO NOT lift affected arm above shoulder. S/P pacemaker/ICD implant. Verify lead placement Performed By: #### 4 999, 18703, 63131 ####[facility] [place] [address], [facility] Potassium [Moles/Vol] 3.3 mmol/L Low 3.5-5.1 [facility] Comment on above: Order Comment: Check Pacemaker/AICD Lead Position, Chest X-ray PA \EANDE\ LAT in Dept ;DO NOT lift affected arm above shoulder. S/P pacemaker/ICD implant. Verify lead placement Performed By: #### 4 999, 17006, 08206 ####[facility] [place] [address], [facility] Sodium [Moles/Vol] 137 mmol/L Normal 136-145 [facility] Comment on above: Order Comment: Check Pacemaker/AICD Lead Position, Chest X-ray PA \EANDE\ LAT in Dept ;DO NOT lift affected arm above shoulder. S/P pacemaker/ICD implant. Verify lead placement Performed By: #### 4 999, 04054, 39563 ####[facility] Urea nitrogen [Mass/Vol] 39 mg/dL High 7-25 [facility] Comment on above: Order Comment: Check Pacemaker/AICD Lead Position, Chest X-ray PA \EANDE\ LAT in Dept ;DO NOT lift affected arm above shoulder. S/P pacemaker/ICD implant. Verify lead placement Performed By: #### 4 1000, 25790, 67379 ####[facility] CBC W/DIFFon 05-03-2022 ABS IMM GRANS 0.0 10*3/uL Normal 0.0-0.2 [facility] Comment on above: Order Comment: No: D o not add to previous draw Performed By: #### 5 0608 #### [facility] [address] ABS NEUTROPHILS 3.8 10*3/uL Normal 1.6-7.6 [facility] Comment on above: Order Comment: No: D o not add to previous draw Performed By: #### 5 0608 #### [facility] [address] Basophils (Bld) [#/Vol] 0.0 10*3/uL Normal 0.0-0.2 [facility] Comment on above: Order Comment: No: D o not add to previous draw Performed By: #### 5 0608 #### [facility] [address] Basophils/100 WBC (Bld) 0.4 % Normal 0.0-1.0 [facility] Comment on above: Order Comment: No: D o not add to previous draw Performed By: #### 5 0608 #### [facility] [address] Eosinophils (Bld) [#/Vol] 0.3 10*3/uL Normal 0.0-0.5 [facility] Comment on above: Order Comment: No: D o not add to previous draw Performed By: #### 5 0608 #### [facility] [address] [facility] [address] Eosinophils/100 WBC (Bld) 5.9 % Normal 0.0-6.0 [facility] Comment on above: Order Comment: No: D o not add to previous draw Performed By: #### 5 0608 #### [facility] 3000 [facility]. [address] Erythrocyte distribution width (RBC) [Ratio] 20.8 % High 11.5-15.0 [facility] Comment on above: Order Comment: No: D o not add to previous draw Performed By: #### 5 0608 #### [facility] 3000 [facility] Hematocrit (Bld) [Volume fraction] 31.0 % Low 39.0-50.0 [facility] Comment on above: Order Comment: No: D o not add to previous draw Performed By: #### 5 0608 #### [facility] [address] Hemoglobin (Bld) [Mass/Vol] 9.2 g/dL Low 13.0-17.0 [facility] Comment on above: Order Comment: No: D o not add to previous draw Performed By: #### 5 0608 #### [facility] 3000 [facility]. [address] IMMATURE GRANS 0.6 % Normal 0.0-1.0 [facility] Comment on above: Order Comment: No: D o not add to previous draw Performed By: #### 5 0608 #### [facility] 3000 [place] [address], [facility] Lymphocytes (Bld) [#/Vol] 0.6 10*3/uL Low 1.2-4.0 [facility] Comment on above: Order Comment: No: D o not add to previous draw Performed By: #### 5 0608 #### [facility] [address] [place] [address], [facility] Lymphocytes/100 WBC (Bld) 11.3 % Low 20.0-45.0 [facility] Comment on above: Order Comment: No: D o not add to previous draw Performed By: #### 5 0608 #### [facility] [address] [place] [address], [facility] MCH (RBC) [Entitic mass] 24.0 pg Low 27.0-33.0 [facility] Comment on above: Order Comment: No: D o not add to previous draw Performed By: #### 5 0608 #### [facility] [address] [place] [address], [facility] MCHC (RBC) [Mass/Vol] 29.7 g/dL Low 32.0-35.0 [facility] Comment on above: Order Comment: No: D o not add to previous draw Performed By: #### 5 0608 #### [facility] [address] [place] [address], [facility] MCV (RBC) [Entitic vol] 80.9 fL Low 82.0-98.0 [facility] Comment on above: Order Comment: No: D o not add to previous draw Performed By: #### 5 0608 #### [facility] 3000 [facility] [place] [address], [facility] Monocytes (Bld) [#/Vol] 0.4 10*3/uL Normal 0.1-1.0 [facility] Comment on above: Order Comment: No: D o not add to previous draw Performed By: #### 5 0608 #### [facility] [address] [place] [address], [facility] MONOS 8.2 % Normal 5.0-12.0 [facility] Comment on above: Order Comment: No: D o not add to previous draw Performed By: #### 5 0608 #### [facility] [address] [place] [address], [facility] Neutrophils/100 WBC (Bld) 73.6 % High 40.0-72.0 [facility] Comment on above: Order Comment: No: D o not add to previous draw Performed By: #### 5 0608 #### [facility] [address] [facility] [address], [facility] Nucleated RBC/100 WBC (Bld) [Ratio] 0 % Normal 0-0 [facility] Comment on above: Order Comment: No: D o not add to previous draw Performed By: #### 5 0608 #### [facility] [address] [facility] [address], [facility] PLAT CNT 131 10*3/uL Low 150-400 [facility] Comment on above: Order Comment: No: D o not add to previous draw Performed By: #### 5 0608 #### [facility] [address] [facility] [address], [facility] RBC (Bld) [#/Vol] 3.83 10*6/uL Low 4.20-5.70 [facility] Comment on above: Order Comment: No: D o not add to previous draw Performed By: #### 5 0608 #### [facility] [address] [facility] [address], [facility] WBC (Bld) [#/Vol] 5.22 10*3/uL Normal 4.00-10.60 [facility] Comment on above: Order Comment: No: D o not add to previous draw Performed By: #### 5 0608 #### [facility] [address] [place] [address], [facility] MAGNESIUM BLOODon 05-03-2022 Magnesium [Mass/Vol] 2.0 mg/dL Normal 1.9-2.7 [facility] Comment on above: Order Comment: Check Pacemaker/AICD Lead Position, Chest X-ray PA \EANDE\ LAT in Dept ;DO NOT lift affected arm above shoulder. S/P pacemaker/ICD implant. Verify lead placement Performed By: #### 4 1000, 19133, 40744 ####[facility]3000 [facility] [address], [facility] PHOSPHORUS BLOODon Phosphate [Mass/Vol] 2.2 mg/dL Low 2.5-5.0 [facility] Comment on above: Order Comment: Check Pacemaker/AICD Lead Position, Chest X-ray PA \EANDE\ LAT in Dept ;DO NOT lift affected arm above shoulder. S/P pacemaker/ICD implant. Verify lead placement Performed By: #### 4 1000, 96563, 29422 ####[facility]3000 [facility].[address] BASIC METABOLIC PANELon 04-09 Calcium [Mass/Vol] 7.8 mg/dL Low 8.6-10.3 [facility] Comment on above: Order Comment: No: D o not add to previous draw Performed By: #### 5 0103 #### [facility] 3000 [facility] [place] [address], [facility] Chloride [Moles/Vol] 98 mmol/L Normal 98-107 [facility] Comment on above: Order Comment: No: D o not add to previous draw Performed By: #### 5 0103 #### [facility] 3000 [facility] [place] [address], [facility] CO2 [Moles/Vol] 29 mmol/L Normal 21-31 [facility] Comment on above: Order Comment: No: D o not add to previous draw Performed By: #### 5 0103 #### [facility] [address] [place] [address], [facility] Creatinine [Mass/Vol] 2.26 mg/dL High 0.70-1.30 [facility] Comment on above: Order Comment: No: D o not add to previous draw Performed By: #### 5 0103 #### [facility] [address] [place] [address], [facility] EGFR 30 ml/min/1.73sq m Abnormal >60 [facility] Comment on above: Order Comment: No: D o not add to previous draw Result Comment: [facility]'s estimated glomerular filtration rate (eGFR) will [...] individuals. Performed By: #### 5 0103 #### [facility] [address] [place] [id number], [facility] Glucose [Mass/Vol] 91 mg/dL Normal 70-100 [facility] Comment on above: Order Comment: No: D o not add to previous draw Performed By: #### 5 0103 #### [facility] [address] [place] [address], [facility] Potassium [Moles/Vol] 3.5 mmol/L Normal 3.5-5.1 [facility] Comment on above: Order Comment: No: D o not add to previous draw Performed By: #### 5 0103 #### [facility] [address] [place] [address], [facility] Sodium [Moles/Vol] 135 mmol/L Low 136-145 [facility] Comment on above: Order Comment: No: D o not add to previous draw Performed By: #### 5 0103 #### [facility] [address] [place] [id number], [facility] Urea nitrogen [Mass/Vol] 46 mg/dL High 7-25 [facility] Comment on above: Order Comment: No: D o not add to previous draw Performed By: #### 5 0103 #### [facility] [address] CBC COMPLETE BLOOD COUNTon 0 05-02-2022 Erythrocyte distribution width (RBC) [Ratio] 20.4 % High 11.5-15.0 [facility] Comment on above: Order Comment: No: D o not add to previous draw Performed By: #### 5 0608 #### [facility] [address] [place] [address], [facility] Hematocrit (Bld) [Volume fraction] 29.9 % Low 39.0-50.0 [facility] Comment on above: Order Comment: No: D o not add to previous draw Performed By: #### 5 0608 #### [facility] [address] [place] [address], [facility] Hemoglobin (Bld) [Mass/Vol] 8.9 g/dL Low 13.0-17.0 [facility] Comment on above: Order Comment: No: D o not add to previous draw Performed By: #### 5 0608 #### [facility] [address] [place] [address], [facility] MCH (RBC) [Entitic mass] 24.1 pg Low 27.0-33.0 [facility] Comment on above: Order Comment: No: D o not add to previous draw Performed By: #### 5 0608 #### [facility] [address] [place] [address], [facility] MCHC (RBC) [Mass/Vol] 29.8 g/dL Low 32.0-35.0 [facility] Comment on above: Order Comment: No: D o not add to previous draw Performed By: #### 5 0608 #### [facility] [address] [place] [address], [facility] MCV (RBC) [Entitic vol] 80.8 fL Low 82.0-98.0 [facility] Comment on above: Order Comment: No: D o not add to previous draw Performed By: #### 5 0608 #### [facility] [address] [place] [address], [facility] Nucleated RBC/100 WBC (Bld) [Ratio] 0 % Normal 0-0 [facility] Comment on above: Order Comment: No: D o not add to previous draw Performed By: #### 5 0608 #### [facility] [address] [facility] [place] [id number], [facility] PLAT CNT 130 10*3/uL Low 150-400 [facility] Comment on above: Order Comment: No: D o not add to previous draw Performed By: #### 5 0608 #### [facility] 3000 [facility] [place] [address], [facility] RBC (Bld) [#/Vol] 3.70 10*6/uL Low 4.20-5.70 [facility] Comment on above: Order Comment: No: D o not add to previous draw Performed By: #### 5 0608 #### [facility] 3000 [facility] [place] [address], [facility] WBC (Bld) [#/Vol] 4.68 10*3/uL Normal 4.00-10.60 [facility] Comment on above: Order Comment: No: D o not add to previous draw Performed By: #### 5 0608 #### [facility] 3000 [facility] [place] [address], [facility] MAGNESIUM BLOODon 05-02-2022 Magnesium [Mass/Vol] 2.0 mg/dL Normal 1.9-2.7 [facility] Comment on above: Order Comment: No: D o not add to previous draw Performed By: #### 5 0103 #### [facility] 3000 [facility] [place] [address], [facility] PHOSPHORUS BLOODon Phosphate [Mass/Vol] 2.5 mg/dL Normal 2.5-5.0 [facility] Comment on above: Order Comment: No: D o not add to previous draw Performed By: #### 5 0103 #### [facility] [address] [place] [address], [facility] BASIC METABOLIC PANELon 04-09 Calcium [Mass/Vol] 8.0 mg/dL Low 8.6-10.3 [facility] Comment on above: Order Comment: Check Pacemaker/AICD Lead Position, Chest X-ray PA \EANDE\ LAT in Dept ;DO NOT lift affected arm above shoulder. S/P pacemaker/ICD implant. Verify lead placement Performed By: #### 4 1000, 52058, 94239 ####[facility] [place] [address], [facility] Chloride [Moles/Vol] 99 mmol/L Normal 98-107 [facility] Comment on above: Order Comment: Check Pacemaker/AICD Lead Position, Chest X-ray PA \EANDE\ LAT in Dept ;DO NOT lift affected arm above shoulder. S/P pacemaker/ICD implant. Verify lead placement Performed By: #### 4 1000, 43316, 64993 ####[facility] [place] [address], [facility] CO2 [Moles/Vol] 31 mmol/L Normal 21-31 [facility] Comment on above: Order Comment: Check Pacemaker/AICD Lead Position, Chest X-ray PA \EANDE\ LAT in Dept ;DO NOT lift affected arm above shoulder. S/P pacemaker/ICD implant. Verify lead placement Performed By: #### 4 1000, 67550, 16607 ####[facility] [place] [address], [facility] Creatinine [Mass/Vol] 2.48 mg/dL High 0.70-1.30 [facility] Comment on above: Order Comment: Check Pacemaker/AICD Lead Position, Chest X-ray PA \EANDE\ LAT in Dept ;DO NOT lift affected arm above shoulder. S/P pacemaker/ICD implant. Verify lead placement Performed By: #### 4 1000, 34568, 62527 ####[facility] [place] [address], [facility] EGFR 27 ml/min/1.73sq m Abnormal >60 [facility] Comment on above: Order Comment: Check Pacemaker/AICD Lead Position, Chest X-ray PA \EANDE\ LAT in Dept ;DO NOT lift affected arm above shoulder. S/P pacemaker/ICD implant. Verify lead placement Result Comment: [facility]'s estimated glomerular filtration rate (eGFR) will [...] of individuals. Performed By: #### 4 1000, 62769, 94043 ####[facility] [place] [address], [facility] Glucose [Mass/Vol] 83 mg/dL Normal 70-100 [facility] Comment on above: Order Comment: Check Pacemaker/AICD Lead Position, Chest X-ray PA \EANDE\ LAT in Dept ;DO NOT lift affected arm above shoulder. S/P pacemaker/ICD implant. Verify lead placement Performed By: #### 4 999, 01815, 84252 ####[facility] [place] [address], [facility] Potassium [Moles/Vol] 3.5 mmol/L Normal 3.5-5.1 [facility] Comment on above: Order Comment: Check Pacemaker/AICD Lead Position, Chest X-ray PA \EANDE\ LAT in Dept ;DO NOT lift affected arm above shoulder. S/P pacemaker/ICD implant. Verify lead placement Performed By: #### 4 1000, 55616, 23336 ####[facility] [place] [address], [facility] Sodium [Moles/Vol] 137 mmol/L Normal 136-145 [facility] Comment on above: Order Comment: Check Pacemaker/AICD Lead Position, Chest X-ray PA \EANDE\ LAT in Dept ;DO NOT lift affected arm above shoulder. S/P pacemaker/ICD implant. Verify lead placement Performed By: #### 4 1000, 84043, 07237 ####[facility] Urea nitrogen [Mass/Vol] 49 mg/dL High 7-25 [facility] Comment on above: Order Comment: Check Pacemaker/AICD Lead Position, Chest X-ray PA \EANDE\ LAT in Dept ;DO NOT lift affected arm above shoulder. S/P pacemaker/ICD implant. Verify lead placement Performed By: #### 4 1000, 18434, 65316 ####[facility] CBC COMPLETE BLOOD COUNTon 05-01-2022 Erythrocyte distribution width (RBC) [Ratio] 20.6 % High 11.5-15.0 [facility] Comment on above: Order Comment: No: D o not add to previous draw Performed By: #### 5 0608 #### [facility] 3000 [facility] [place] [address], [facility] Hematocrit (Bld) [Volume fraction] 28.9 % Low 39.0-50.0 [facility] Comment on above: Order Comment: No: D o not add to previous draw Performed By: #### 5 0608 #### [facility] [address] [place] [id number], [facility] Hemoglobin (Bld) [Mass/Vol] 8.6 g/dL Low 13.0-17.0 [facility] Comment on above: Order Comment: No: D o not add to previous draw Performed By: #### 5 0608 #### [facility] [address] [place] [id number], [facility] MCH (RBC) [Entitic mass] 24.1 pg Low 27.0-33.0 [facility] Comment on above: Order Comment: No: D o not add to previous draw Performed By: #### 5 0608 #### [facility] [address] [place] [address], [facility] MCHC (RBC) [Mass/Vol] 29.8 g/dL Low 32.0-35.0 [facility] Comment on above: Order Comment: No: D o not add to previous draw Performed By: #### 5 0608 #### [facility] [address] [place] [address], [facility] MCV (RBC) [Entitic vol] 81.0 fL Low 82.0-98.0 [facility] Comment on above: Order Comment: No: D o not add to previous draw Performed By: #### 5 0608 #### [facility] 3000 [facility]. [address] Nucleated RBC/100 WBC (Bld) [Ratio] 0 % Normal 0-0 [facility] Comment on above: Order Comment: No: D o not add to previous draw Performed By: #### 5 0608 #### [facility] 3000 [facility] [place] [address], [facility] PLAT CNT 130 10*3/uL Low 150-400 [facility] Comment on above: Order Comment: No: D o not add to previous draw Performed By: #### 5 0608 #### [facility] 3000 [facility] [place] [address], [facility] RBC (Bld) [#/Vol] 3.57 10*6/uL Low 4.20-5.70 [facility] Comment on above: Order Comment: No: D o not add to previous draw Performed By: #### 5 0608 #### [facility] [address] [place] [address], [facility] WBC (Bld) [#/Vol] 4.33 10*3/uL Normal 4.00-10.60 [facility] Comment on above: Order Comment: No: D o not add to previous draw Performed By: #### 5 0608 #### [facility] [address] [place] [address], [facility] COOXIMETRYon 05-01-2022 COHB 2 % Normal [facility] Comment on above: Performed By: #### 7 0207 #### [facility] [address] [place] [address], [facility] METHB 1 % Normal [facility] Comment on above: Performed By: #### 7 0207 #### [facility] [address] [place] [address], [facility] Oxygen saturation in Blood 71.0 % Normal 65.0-75.0 [facility] Comment on above: Performed By: #### 7 0207 #### [facility] [address] [place] [address], [facility] THB 9.0 g/dL Normal [facility] Comment on above: Performed By: #### 7 0207 #### [facility] [address] [place] [address], [facility] MAGNESIUM BLOODon 05-01-2022 Magnesium [Mass/Vol] 2.1 mg/dL Normal 1.9-2.7 [facility] Comment on above: Order Comment: Check Pacemaker/AICD Lead Position, Chest X-ray PA \EANDE\ LAT in Dept ;DO NOT lift affected arm above shoulder. S/P pacemaker/ICD implant. Verify lead placement Performed By: #### 4 1000, 50034, 72923 ####[facility] [place] [address], [facility] PHOSPHORUS BLOODon 2 Phosphate [Mass/Vol] 3.6 mg/dL Normal 2.5-5.0 [facility] Comment on above: Order Comment: Check Pacemaker/AICD Lead Position, Chest X-ray PA \EANDE\ LAT in Dept ;DO NOT lift affected arm above shoulder. S/P pacemaker/ICD implant. Verify lead placement Performed By: #### 4 1000, 78423, 19489 ####[facility] PORTABLE CHEST 1 VIEWon 04-09 PORTABLE CHEST 1 VIEW [facility] Department of Radiology [address] [place] [address] Patient Name: MAN PATEL : 1950 Sex: M Age: Race: White Pt. Location: [place] [address] Patient Status: I Ordered Date: 05/01/2022 10:35:00 [...] obtained. COMPARISON: Chest radiograph dated 08/01/2021 FINDINGS: Baldwin-Eleazar catheter placed via right internal jugular approach has tip in the right pulmonary artery. Dual-chamber pacemaker placed left subclavian approach. Moderate cardiomegaly. Moderate CHF. No pleural effusion. No pneumothorax. IMPRESSION: Moderate cardiomegaly. Moderate CHF. Electronically signed: Aldo Montana. Transcribed by: [email or web address], User Resident: Electronically Signed by: ALDO MONTANA @ 05/01/2022 11:16 AM Normal [facility] Comment on above: Order Comment: Check Line Position *BLOOD CULTUREon 04-30-2022 *BLOOD CULTURE Clinical Report: (D) Specimen: BLOOD CULTURE Collected: 04/29/2022 23:47 Status: Final Last Updated: 05/05/2022 06:59 CULT RES (Final) No Growth Day 5 Normal [facility] Comment on above: Performed By: #### 3 0313 ####[facility]3000 [facility].[address] *BLOOD CULTURE Clinical Report: (D) Specimen: BLOOD CULTURE Collected: 04/29/2022 23:43 Status: Final Last Updated: 05/05/2022 06:59 CULT RES (Final) No Growth Day 5 Normal [facility] Comment on above: Performed By: #### 3 0313 #### [facility] [address] [place] [address], [facility] BASIC METABOLIC PANELon 04-09 Calcium [Mass/Vol] 8.0 mg/dL Low 8.6-10.3 [facility] Comment on above: Order Comment: No: D o not add to previous draw Performed By: #### 4 5506, 83985, 01901, 47414 ####[facility] [place] [address], [place] Chloride [Moles/Vol] 100 mmol/L Normal 98-107 [facility] Comment on above: Order Comment: No: D o not add to previous draw Performed By: #### 4 5506, 12459, 62253, 99674 ####[facility] [place] [address], [place] CO2 [Moles/Vol] 31 mmol/L Normal 21-31 [facility] Comment on above: Order Comment: No: D o not add to previous draw Performed By: #### 4 5506, 21722, 69033, 82674 ####[facility] [place] [address], [facility] Creatinine [Mass/Vol] 2.53 mg/dL High 0.70-1.30 [facility] Comment on above: Order Comment: No: D o not add to previous draw Performed By: #### 4 5506, 10368, 84799, 30853 ####[facility] [place] [address], [facility] EGFR 27 ml/min/1.73sq m Abnormal >60 [facility] Comment on above: Order Comment: No: D o not add to previous draw Result Comment: [facility]'s estimated glomerular filtration rate (eGFR) will [...] of individuals. Performed By: #### 4 5506, 88738, 85719, 91161 ####[facility] [place] [address], [facility] Glucose [Mass/Vol] 94 mg/dL Normal 70-100 [facility] Comment on above: Order Comment: No: D o not add to previous draw Performed By: #### 4 5506, 92428, 58622, 90095 ####[facility] [place] [address], [facility] Potassium [Moles/Vol] 3.5 mmol/L Normal 3.5-5.1 [facility] Comment on above: Order Comment: No: D o not add to previous draw Performed By: #### 4 5506, 05751, 25287, 51318 ####[facility] Sodium [Moles/Vol] 139 mmol/L Normal 136-145 [facility] Comment on above: Order Comment: No: D o not add to previous draw Performed By: #### 4 5506, 05552, 91092, 72371 ####[facility] Urea nitrogen [Mass/Vol] 49 mg/dL High 7-25 [facility] Comment on above: Order Comment: No: D o not add to previous draw Performed By: #### 4 5506, 03777, 41856, 85948 ####[facility] CBC COMPLETE BLOOD COUNTon 0 - Erythrocyte distribution width (RBC) [Ratio] 20.8 % High 11.5-15.0 [facility] Comment on above: Order Comment: No: D o not add to previous draw Performed By: #### 5 0608 #### [facility] [address] [facility] [address] Hematocrit (Bld) [Volume fraction] 28.3 % Low 39.0-50.0 [facility] Comment on above: Order Comment: No: D o not add to previous draw Performed By: #### 5 0608 #### [facility] [address] [facility] [place] [address], [facility] Hemoglobin (Bld) [Mass/Vol] 8.5 g/dL Low 13.0-17.0 [facility] Comment on above: Order Comment: No: D o not add to previous draw Performed By: #### 5 0608 #### [facility] [address] [facility] [place] [address], [facility] MCH (RBC) [Entitic mass] 24.3 pg Low 27.0-33.0 [facility] Comment on above: Order Comment: No: D o not add to previous draw Performed By: #### 5 0608 #### [facility] [address] [place] [id number], [facility] MCHC (RBC) [Mass/Vol] 30.0 g/dL Low 32.0-35.0 [facility] Comment on above: Order Comment: No: D o not add to previous draw Performed By: #### 5 0608 #### [facility] [address] [place] [id number], [facility] MCV (RBC) [Entitic vol] 80.9 fL Low 82.0-98.0 [facility] Comment on above: Order Comment: No: D o not add to previous draw Performed By: #### 5 0608 #### [facility] [address] [place] [address], [facility] Nucleated RBC/100 WBC (Bld) [Ratio] 0 % Normal 0-0 [facility] Comment on above: Order Comment: No: D o not add to previous draw Performed By: #### 5 0608 #### [facility] [address] [place] [id number], [facility] PLAT CNT 139 10*3/uL Low 150-400 [facility] Comment on above: Order Comment: No: D o not add to previous draw Performed By: #### 5 0608 #### [facility] [address] [facility] [place] [id number], [facility] RBC (Bld) [#/Vol] 3.50 10*6/uL Low 4.20-5.70 [facility] Comment on above: Order Comment: No: D o not add to previous draw Performed By: #### 5 0608 #### [facility] [address] [place] [id number], [facility] WBC (Bld) [#/Vol] 4.28 10*3/uL Normal 4.00-10.60 [facility] Comment on above: Order Comment: No: D o not add to previous draw Performed By: #### 5 0608 #### [facility] [address] [place] [address], [facility] COOXIMETRYon 04-30-2022 COHB 2 % Normal [facility] Comment on above: Performed By: #### 3 0313 #### [facility] [address] [place] [address], [facility] METHB 1 % Normal [facility] Comment on above: Performed By: #### 3 0313 #### [facility] [address] [place] [address], [facility] Oxygen saturation in Blood 69.0 % Normal 65.0-75.0 [facility] Comment on above: Performed By: #### 3 0313 #### [facility] [address] [facility] [place] [address], [facility] THB 12.0 g/dL Normal [facility] Comment on above: Performed By: #### 3 0313 #### [facility] [address] [facility] [place] [address], [facility] Cardiovascular Lab Reporton 04-30-2022 Cardiovascular Lab Report [facility] Patient Name: [facility] Man Ace MR #: [id number] Department of Physician: Fidel Flowers MKhari Division of Service Date: 04/29/2022 Cardiology Birthdate: 1950 Adult Cardiovascular Room #: KASANDRA [id number] [facility] [address] [place] [address] Cardiovascular Laboratory Report CLINICAL PRESENTATION: The patient is a 72-year-old male with past medical history significant for CAD, status post CABG, heart failure with EF 40%, CKD with acute kidney injury, atrial fibrillation on Eliquis, pacemaker, and hypertension. The patient was admitted with shortness of breath and lower extremity edema concerning for [id number] systolic heart failure. He has worsening renal [...] Given worsening renal function, we will place Baldwin-Eleazar catheter for invasive hemodynamic monitoring in the ICU. The patient will likely require milrinone inotrope therapy. 2. Remainder of plan per Cardiology Service. 3. There was tracing of severe V-waves, which could be seen in mitral regurgitation. Correlation with echocardiogram is recommended. PROCEDURES: Right heart catheterization, ultrasound guidance for vascular access. INDICATION: [id number] systolic heart failure. PROCEDURE DESCRIPTION: The patient [...] ultrasound guidance and micropuncture access technique, a 6-Honduran sheath was placed in the right internal [...] renal function, we agreed to place a Baldwin-Eleazar catheter for monitoring in the ICU. Next, using a wire, I exchanged the sheath to an 8-Honduran Cordis sheath. This was sutured to the skin. Next, I advanced Alarcon [employer]IC[employer] Baldwin-Eleazar catheter to the pulmonary artery position. The [...] Red M.D. Date Trans: 04/30/2022 10:29 A/surekha [id number] cc: Li Cintron M.D. Heart Failure/ Transplant Mailstop [address] [place] [address] Normal [facility] MAGNESIUM BLOODon 04-30-2022 Magnesium [Mass/Vol] 2.3 mg/dL Normal 1.9-2.7 [facility] Comment on above: Order Comment: No: D o not add to previous draw Performed By: #### 4 5506, 53451, 96404, 40322 ####[facility] [facility] PHOSPHORUS BLOODon Phosphate [Mass/Vol] 4.1 mg/dL Normal 2.5-5.0 [facility] Comment on above: Performed By: #### 4 5506, 42394, 02802, 80806 ####[facility] [place] [address], [facility] URIC ACID BLOODon 04-30-2022 Urate [Mass/Vol] 13.5 mg/dL High 4.4-7.6 [facility] Comment on above: Performed By: #### 4 5506, 41330, 38983, 27928 ####[facility] [place] [address], [facility] BASIC METABOLIC PANELon 04-09 Calcium [Mass/Vol] 8.4 mg/dL Low 8.6-10.3 [facility] Comment on above: Order Comment: No: D o not add to previous draw Performed By: #### 3 0313 #### [facility] [address] [place] [address], [facility] Chloride [Moles/Vol] 100 mmol/L Normal 98-107 [facility] Comment on above: Order Comment: No: D o not add to previous draw Performed By: #### 3 0313 #### [facility] [address] [place] [address], [facility] CO2 [Moles/Vol] 30 mmol/L Normal 21-31 [facility] Comment on above: Order Comment: No: D o not add to previous draw Performed By: #### 3 0313 #### [facility] [address] [place] [id number], [facility] Creatinine [Mass/Vol] 2.09 mg/dL High 0.70-1.30 [facility] Comment on above: Order Comment: No: D o not add to previous draw Performed By: #### 3 0313 #### [facility] [address] [facility] [place] [address], [facility] EGFR 33 ml/min/1.73sq m Abnormal >60 [facility] Comment on above: Order Comment: No: D o not add to previous draw Result Comment: [facility]'s estimated glomerular filtration rate (eGFR) will [...] individuals. Performed By: #### 3 0313 #### [facility] [address] [place] [id number], [facility] Glucose [Mass/Vol] 96 mg/dL Normal 70-100 [facility] Comment on above: Order Comment: No: D o not add to previous draw Performed By: #### 3 0313 #### [facility] [address] [place] [address], [facility] Potassium [Moles/Vol] 4.0 mmol/L Normal 3.5-5.1 [facility] Comment on above: Order Comment: No: D o not add to previous draw Performed By: #### 3 0313 #### [facility] [address] [place] [address], [facility] Sodium [Moles/Vol] 138 mmol/L Normal 136-145 [facility] Comment on above: Order Comment: No: D o not add to previous draw Performed By: #### 3 0313 #### [facility] [address] [place] [address], [facility] Urea nitrogen [Mass/Vol] 48 mg/dL High 7-25 [facility] Comment on above: Order Comment: No: D o not add to previous draw Performed By: #### 3 0313 #### [facility] [address] [place] [address], [facility] CBC COMPLETE BLOOD COUNTon 0 - Erythrocyte distribution width (RBC) [Ratio] 20.6 % High 11.5-15.0 [facility] Comment on above: Order Comment: No: D o not add to previous draw Performed By: #### 5 0608 ####[facility] [place] [address], [facility] Hematocrit (Bld) [Volume fraction] 31.0 % Low 39.0-50.0 [facility] Comment on above: Order Comment: No: D o not add to previous draw Performed By: #### 5 0608 ####[facility] [id number], [facility] Hemoglobin (Bld) [Mass/Vol] 8.9 g/dL Low 13.0-17.0 [facility] Comment on above: Order Comment: No: D o not add to previous draw Performed By: #### 5 0608 ####[facility] MCH (RBC) [Entitic mass] 23.1 pg Low 27.0-33.0 [facility] Comment on above: Order Comment: No: D o not add to previous draw Performed By: #### 5 0608 ####[facility] [facility] [place] [address], [facility] MCHC (RBC) [Mass/Vol] 28.7 g/dL Low 32.0-35.0 [facility] Comment on above: Order Comment: No: D o not add to previous draw Performed By: #### 5 0608 ####[facility] [place] [address], [facility] MCV (RBC) [Entitic vol] 80.5 fL Low 82.0-98.0 [facility] Comment on above: Order Comment: No: D o not add to previous draw Performed By: #### 5 0608 ####[facility] [facility].[address] Nucleated RBC/100 WBC (Bld) [Ratio] 0 % Normal 0-0 [facility] Comment on above: Order Comment: No: D o not add to previous draw Performed By: #### 5 0608 ####[facility] [place] [address], [facility] PLAT CNT 145 10*3/uL Low 150-400 [facility] Comment on above: Order Comment: No: D o not add to previous draw Performed By: #### 5 0608 ####[facility] [place] [address], [facility] RBC (Bld) [#/Vol] 3.85 10*6/uL Low 4.20-5.70 [facility] Comment on above: Order Comment: No: D o not add to previous draw Performed By: #### 5 0608 ####[facility] [place] [address].[place] [address], [facility] WBC (Bld) [#/Vol] 5.00 10*3/uL Normal 4.00-10.60 [facility] Comment on above: Order Comment: No: D o not add to previous draw Performed By: #### 5 0608 ####[facility] [place] [address], [facility] COOXIMETRYon 04-29-2022 COHB 3 % Normal [facility] Comment on above: Performed By: #### 5 0103 #### [facility] [address] [place] [address], [facility] METHB 1 % Normal [facility] Comment on above: Performed By: #### 5 0103 #### [facility] [address] [place] [address], [facility] Oxygen saturation in Blood 74.0 % Normal 65.0-75.0 [facility] Comment on above: Performed By: #### 5 0103 #### [facility] [address] [place] [address], [facility] THB 8.4 g/dL Normal [facility] Comment on above: Performed By: #### 5 0103 #### [facility] [address] [place] [address], [facility] MAGNESIUM BLOODon 04-29-2022 Magnesium [Mass/Vol] 2.3 mg/dL Normal 1.9-2.7 [facility] Comment on above: Order Comment: No: D o not add to previous draw Performed By: #### 3 0313 #### [facility] [address] [place] [address], [facility] BASIC METABOLIC PANELon 04-09 Calcium [Mass/Vol] 8.3 mg/dL Low 8.6-10.3 [facility] Comment on above: Order Comment: No: D o not add to previous draw Performed By: #### 0 0071, 88897, 39790 ####[facility] [place] [address], [facility] Chloride [Moles/Vol] 100 mmol/L Normal 98-107 [facility] Comment on above: Order Comment: No: D o not add to previous draw Performed By: #### 0 0071, 70672, 79305 ####[facility] [place] [address], [facility] CO2 [Moles/Vol] 29 mmol/L Normal 21-31 [facility] Comment on above: Order Comment: No: D o not add to previous draw Performed By: #### 0 0071, 88440, 24037 ####[facility] [place] [address], [facility] Creatinine [Mass/Vol] 2.51 mg/dL High 0.70-1.30 [facility] Comment on above: Order Comment: No: D o not add to previous draw Performed By: #### 0 0071, 14966, 43082 ####[facility] [place] [address], [facility] EGFR 27 ml/min/1.73sq m Abnormal >60 [facility] Comment on above: Order Comment: No: D o not add to previous draw Result Comment: [facility]'s estimated glomerular filtration rate (eGFR) will [...] of individuals. Performed By: #### 0 0071, 01924, 16522 ####[facility] [id number], [facility] Glucose [Mass/Vol] 98 mg/dL Normal 70-100 [facility] Comment on above: Order Comment: No: D o not add to previous draw Performed By: #### 0 0071, 04949, 15997 ####[facility] Potassium [Moles/Vol] 3.9 mmol/L Normal 3.5-5.1 [facility] Comment on above: Order Comment: No: D o not add to previous draw Performed By: #### 0 0071, 75911, 19040 ####[facility] Sodium [Moles/Vol] 138 mmol/L Normal 136-145 [facility] Comment on above: Order Comment: No: D o not add to previous draw Performed By: #### 0 1, 53660, 55082 ####[facility] Urea nitrogen [Mass/Vol] 55 mg/dL High 7-25 [facility] Comment on above: Order Comment: No: D o not add to previous draw Performed By: #### 0 0071, 18181, 54914 ####[facility] [facility].[address] CBC COMPLETE BLOOD COUNTon 0 - Erythrocyte distribution width (RBC) [Ratio] 20.2 % High 11.5-15.0 [facility] Comment on above: Order Comment: No: D o not add to previous draw Performed By: #### 5 0608 ####[facility] Hematocrit (Bld) [Volume fraction] 28.9 % Low 39.0-50.0 [facility] Comment on above: Order Comment: No: D o not add to previous draw Performed By: #### 5 0608 ####[facility] Hemoglobin (Bld) [Mass/Vol] 8.7 g/dL Low 13.0-17.0 [facility] Comment on above: Order Comment: No: D o not add to previous draw Performed By: #### 5 0608 ####[address] MCH (RBC) [Entitic mass] 24.0 pg Low 27.0-33.0 [facility] Comment on above: Order Comment: No: D o not add to previous draw Performed By: #### 5 0608 ####[address] MCHC (RBC) [Mass/Vol] 30.1 g/dL Low 32.0-35.0 [facility] Comment on above: Order Comment: No: D o not add to previous draw Performed By: #### 5 0608 ####[address] MCV (RBC) [Entitic vol] 79.6 fL Low 82.0-98.0 [facility] Comment on above: Order Comment: No: D o not add to previous draw Performed By: #### 5 0608 ####[address] Nucleated RBC/100 WBC (Bld) [Ratio] 0 % Normal 0-0 [facility] Comment on above: Order Comment: No: D o not add to previous draw Performed By: #### 5 0608 ####[address] PLAT CNT 162 10*3/uL Normal 150-400 [facility] Comment on above: Order Comment: No: D o not add to previous draw Performed By: #### 5 0608 ####[place] [address], [place] RBC (Bld) [#/Vol] 3.63 10*6/uL Low 4.20-5.70 [facility] Comment on above: Order Comment: No: D o not add to previous draw Performed By: #### 5 0608 ####[facility] [place] [address], [facility] WBC (Bld) [#/Vol] 6.21 10*3/uL Normal 4.00-10.60 [facility] Comment on above: Order Comment: No: D o not add to previous draw Performed By: #### 5 0608 ####[facility] [place] [address] LIPID PROFILEon 04-28-2022 Cholesterol [Mass/Vol] 92 mg/dL Low 120-200 [facility] Comment on above: Order Comment: Yes: Add to Previous draw if able Result Comment: CHOL ESTEROL REFERENCE RANGE: 20 YEARS AND OLDER CARDIOVASCULAR RISK Less than 200 mg/dl Low Risk 200 to 239 mg/dl Borderline Risk 240 mg/dl and greater High Risk Performed By: #### 0 0071, 07263, 25691 ####[facility] Cholesterol in HDL [Mass/Vol] 37 mg/dL Normal 23-92 [facility] Comment on above: Order Comment: Yes: Add to Previous draw if able Result Comment: Slig ht variation in normal range could be due to gender and/or age. HDL CHOLESTEROL REFERENCE RANGE: 20 years and older Cardiovascular Risk > or =60 mg/dL Desirable 40 TO 59 mg/dL Low Risk <40 mg/dL High Risk Performed By: #### 0 0071, 00359, 33522 ####[facility] Cholesterol in LDL [Mass/Vol] 47 mg/dL Normal 0-130 [facility] Comment on above: Order Comment: Yes: Add to Previous draw if able Result Comment: LDL IS A CALCULATION LDL IS ONLY VALID IF THE TRIG IS LESS THAN 400. Performed By: #### 0 0071, 65752, 77328 ####[facility] Cholesterol.total/Chol esterol in HDL [Mass ratio] 2.5 {ratio} Normal .0-4.5 [facility] Comment on above: Order Comment: Yes: Add to Previous draw if able Performed By: #### 0 0071, 09869, 08211 ####[facility] NON-HDL CHOLESTEROL 55 mg/dL Normal [facility] Comment on above: Order Comment: Yes: Add to Previous draw if able Performed By: #### 0 0071, , 36591 ####[facility] [facility].[address] Triglyceride [Mass/Vol] 40 mg/dL Normal 40-149 [facility] Comment on above: Order Comment: Yes: Add to Previous draw if able Result Comment: TRIG LYCERIDE REFERENCE RANGE: 20 YEARS AND OLDER CARDIOVASCULAR RISK LESS THAN 150 mg/dl LOW RISK 150 TO 199 mg/dl BORDERLINE RISK 200 mg/dl AND GREATER HIGH RISK Performed By: #### 0 0071, , 78663 ####[facility] [facility].[address] VLDL CHOL 8 mg/dL Normal 0-40 [facility] Comment on above: Order Comment: Yes: Add to Previous draw if able Performed By: #### 0 0071, 19565, 54118 ####[facility] [place] [address], [facility] MAGNESIUM BLOODon 04-28-2022 Magnesium [Mass/Vol] 2.4 mg/dL Normal 1.9-2.7 [facility] Comment on above: Order Comment: No: D o not add to previous draw Performed By: #### 0 0071, 88633, 07519 ####[facility] [place] [address], [facility] BASIC METABOLIC PANELon 08-2 0-2021 Calcium [Mass/Vol] 8.4 mg/dL Low 8.6-10.3 [facility] Comment on above: Order Comment: No: D o not add to previous draw Performed By: #### 7 0207 #### [facility] [address] [place] [address], [facility] Chloride [Moles/Vol] 100 mmol/L Normal 98-107 [facility] Comment on above: Order Comment: No: D o not add to previous draw Performed By: #### 7 0207 #### [facility] [address] [place] [address], [facility] CO2 [Moles/Vol] 27 mmol/L Normal 21-31 [facility] Comment on above: Order Comment: No: D o not add to previous draw Performed By: #### 7 0207 #### [facility] [address] [place] [address], [facility] Creatinine [Mass/Vol] 2.46 mg/dL High 0.70-1.30 [facility] Comment on above: Order Comment: No: D o not add to previous draw Performed By: #### 7 0207 #### [facility] [address] [place] [address], [facility] EGFR 27 ml/min/1.73sq m Abnormal >60 [facility] Comment on above: Order Comment: No: D o not add to previous draw Result Comment: [facility]'s estimated glomerular filtration rate (eGFR) will [...] individuals. Performed By: #### 7 0207 #### [facility] [address] [place] [address], [place] Glucose [Mass/Vol] 96 mg/dL Normal 70-100 [facility] Comment on above: Order Comment: No: D o not add to previous draw Performed By: #### 7 0207 #### [facility] [address] [place] [address], [place] Potassium [Moles/Vol] 3.8 mmol/L Normal 3.5-5.1 [facility] Comment on above: Order Comment: No: D o not add to previous draw Performed By: #### 7 0207 #### [facility] [address] [place] [address], [place] Sodium [Moles/Vol] 136 mmol/L Normal 136-145 [facility] Comment on above: Order Comment: No: D o not add to previous draw Performed By: #### 7 7 #### [facility] [address] [place] [address], [place] Urea nitrogen [Mass/Vol] 57 mg/dL High 7-25 [facility] Comment on above: Order Comment: No: D o not add to previous draw Performed By: #### 7 0207 #### [facility] [address] [place] [address], [place] BASIC METABOLIC PANELon 04-08 Calcium [Mass/Vol] 8.7 mg/dL Normal 8.6-10.3 [facility] Comment on above: Order Comment: No: D o not add to previous draw Performed By: #### 3 0313 #### [facility] [address] [place] [address], [place] Chloride [Moles/Vol] 100 mmol/L Normal 98-107 [facility] Comment on above: Order Comment: No: D o not add to previous draw Performed By: #### 3 0313 #### [facility] [address] [place] [address], [facility] CO2 [Moles/Vol] 26 mmol/L Normal 21-31 [facility] Comment on above: Order Comment: No: D o not add to previous draw Performed By: #### 3 0313 #### [facility] [address] [place] [address], [facility] Creatinine [Mass/Vol] 2.63 mg/dL High 0.70-1.30 [facility] Comment on above: Order Comment: No: D o not add to previous draw Performed By: #### 3 0313 #### [facility] [address] [place] [address], [facility] EGFR 25 ml/min/1.73sq m Abnormal >60 [facility] Comment on above: Order Comment: No: D o not add to previous draw Result Comment: [facility]'s estimated glomerular filtration rate (eGFR) will [...] individuals. Performed By: #### 3 0313 #### [facility] [address] [place] [address], [facility] Glucose [Mass/Vol] 101 mg/dL High 70-100 [facility] Comment on above: Order Comment: No: D o not add to previous draw Performed By: #### 3 0313 #### [facility] [address] [place] [address], [facility] Potassium [Moles/Vol] 4.3 mmol/L Normal 3.5-5.1 [facility] Comment on above: Order Comment: No: D o not add to previous draw Performed By: #### 3 0313 #### [facility] [address] [address], [facility] Sodium [Moles/Vol] 136 mmol/L Normal 136-145 [facility] Comment on above: Order Comment: No: D o not add to previous draw Performed By: #### 3 3 #### [facility] [address] [facility] [place] [address], [facility] Urea nitrogen [Mass/Vol] 57 mg/dL High 7-25 [facility] Comment on above: Order Comment: No: D o not add to previous draw Performed By: #### 3 3 #### [facility] [address] [place] [address], [facility] CBC W/DIFFon 04-26-2022 ABS IMM GRANS 0.0 10*3/uL Normal 0.0-0.2 [facility] Comment on above: Order Comment: No: D o not add to previous draw Performed By: #### 5 0103 #### [facility] [address] [place] [address], [facility] ABS NEUTROPHILS 5.2 10*3/uL Normal 1.6-7.6 [facility] Comment on above: Order Comment: No: D o not add to previous draw Performed By: #### 5 3 #### [facility] [address] [place] [address], [facility] Basophils (Bld) [#/Vol] 0.0 10*3/uL Normal 0.0-0.2 [facility] Comment on above: Order Comment: No: D o not add to previous draw Performed By: #### 5 0103 #### [facility] [address] [place] [address], [facility] Basophils/100 WBC (Bld) 0.6 % Normal 0.0-1.0 [facility] Comment on above: Order Comment: No: D o not add to previous draw Performed By: #### 5 0103 #### [facility] [address] [place] [address], [facility] Eosinophils (Bld) [#/Vol] 0.2 10*3/uL Normal 0.0-0.5 [facility] Comment on above: Order Comment: No: D o not add to previous draw Performed By: #### 5 0103 #### [facility] [address] [place] [address], [facility] Eosinophils/100 WBC (Bld) 3.4 % Normal 0.0-6.0 [facility] Comment on above: Order Comment: No: D o not add to previous draw Performed By: #### 5 0103 #### [facility] [address] [facility] [address] Erythrocyte distribution width (RBC) [Ratio] 19.9 % High 11.5-15.0 [facility] Comment on above: Order Comment: No: D o not add to previous draw Performed By: #### 5 0103 #### [facility] [address] Hematocrit (Bld) [Volume fraction] 30.2 % Low 39.0-50.0 [facility] Comment on above: Order Comment: No: D o not add to previous draw Performed By: #### 5 0103 #### [facility] [address] [facility] [place] [address], [facility] Hemoglobin (Bld) [Mass/Vol] 9.0 g/dL Low 13.0-17.0 [facility] Comment on above: Order Comment: No: D o not add to previous draw Performed By: #### 5 0103 #### [facility] [address] [place] [address], [facility] IMMATURE GRANS 0.2 % Normal 0.0-1.0 [facility] Comment on above: Order Comment: No: D o not add to previous draw Performed By: #### 5 0103 #### [facility] [address] [facility] [place] [address], [facility] Lymphocytes (Bld) [#/Vol] 0.4 10*3/uL Low 1.2-4.0 [facility] Comment on above: Order Comment: No: D o not add to previous draw Performed By: #### 5 0103 #### [facility] [address] [place] [id number], [facility] Lymphocytes/100 WBC (Bld) 6.6 % Low 20.0-45.0 [facility] Comment on above: Order Comment: No: D o not add to previous draw Performed By: #### 5 0103 #### [facility] [address] [place] [address], [facility] MCH (RBC) [Entitic mass] 23.4 pg Low 27.0-33.0 [facility] Comment on above: Order Comment: No: D o not add to previous draw Performed By: #### 5 0103 #### [facility] [address] [place] [address], [facility] MCHC (RBC) [Mass/Vol] 29.8 g/dL Low 32.0-35.0 [facility] Comment on above: Order Comment: No: D o not add to previous draw Performed By: #### 5 0103 #### [facility] [address] [place] [id number], [facility] MCV (RBC) [Entitic vol] 78.4 fL Low 82.0-98.0 [facility] Comment on above: Order Comment: No: D o not add to previous draw Performed By: #### 5 0103 #### [facility] [address] [place] [id number], [facility] Monocytes (Bld) [#/Vol] 0.7 10*3/uL Normal 0.1-1.0 [facility] Comment on above: Order Comment: No: D o not add to previous draw Performed By: #### 5 0103 #### [facility] [address] [place] [address], [place] MONOS 10.3 % Normal 5.0-12.0 [facility] Comment on above: Order Comment: No: D o not add to previous draw Performed By: #### 5 0103 #### [facility] [address] [place] [address], [place] Neutrophils/100 WBC (Bld) 78.9 % High 40.0-72.0 [facility] Comment on above: Order Comment: No: D o not add to previous draw Performed By: #### 5 0103 #### [facility] [address] [place] [address], [facility] Nucleated RBC/100 WBC (Bld) [Ratio] 0 % Normal 0-0 [facility] Comment on above: Order Comment: No: D o not add to previous draw Performed By: #### 5 0103 #### [facility] [address] [place] [address], [place] PLAT CNT 196 10*3/uL Normal 150-400 [facility] Comment on above: Order Comment: No: D o not add to previous draw Performed By: #### 5 0103 #### [facility] [address] [place] [address], [facility] RBC (Bld) [#/Vol] 3.85 10*6/uL Low 4.20-5.70 [facility] Comment on above: Order Comment: No: D o not add to previous draw Performed By: #### 5 0103 #### [facility] [address] [place] [address], [place] WBC (Bld) [#/Vol] 6.52 10*3/uL Normal 4.00-10.60 [facility] Comment on above: Order Comment: No: D o not add to previous draw Performed By: #### 5 0103 #### [facility] [address] [place] [address], [place] HEMOGLOBIN A1Con 08-19-2022 Glucose [Moles/Vol] 111 mmol/L Normal [facility] Comment on above: Order Comment: Check Pacemaker/AICD Lead Position, Chest X-ray PA \EANDE\ LAT in Dept ;DO NOT lift affected arm above shoulder. S/P pacemaker/ICD implant. Verify lead placement Performed By: #### 3 1791 ####[facility] HbA1c (Bld) [Mass fraction] 5.5 % Normal 4.0-6.0 [facility] Comment on above: Order Comment: Check Pacemaker/AICD Lead Position, Chest X-ray PA \EANDE\ LAT in Dept ;DO NOT lift affected arm above shoulder. S/P pacemaker/ICD implant. Verify lead placement Performed By: #### 3 1791 ####[facility] [facility].[address] MAGNESIUM BLOODon 04-26-2022 Magnesium [Mass/Vol] 2.6 mg/dL Normal 1.9-2.7 [facility] Comment on above: Order Comment: No: D o not add to previous draw Performed By: #### 3 0313 #### [facility] [address] [facility] [address] APTTon 04-25-2022 aPTT Coag (Bld) [Time] 49.8 s High 25.0-35.0 [facility] Comment on above: Order Comment: [...] PURPOSE. Performed By: #### 5 0103 #### [facility] [address] [place] [address], [facility] BASIC METABOLIC PANELon 04-08 Calcium [Mass/Vol] 8.8 mg/dL Normal 8.6-10.3 [facility] Comment on above: Order Comment: No: D o not add to previous draw Performed By: #### 3 2044 #### [facility] [address] [place] [address], [facility] Chloride [Moles/Vol] 100 mmol/L Normal 98-107 [facility] Comment on above: Order Comment: No: D o not add to previous draw Performed By: #### 3 2044 #### [facility] [address] [place] [address], [facility] CO2 [Moles/Vol] 27 mmol/L Normal 21-31 [facility] Comment on above: Order Comment: No: D o not add to previous draw Performed By: #### 3 2044 #### [facility] [address] [place] [address], [facility] Creatinine [Mass/Vol] 2.82 mg/dL High 0.70-1.30 [facility] Comment on above: Order Comment: No: D o not add to previous draw Performed By: #### 3 2044 #### [facility] [address] [place] [address], [facility] EGFR 23 ml/min/1.73sq m Abnormal >60 [facility] Comment on above: Order Comment: No: D o not add to previous draw Result Comment: [facility]'s estimated glomerular filtration rate (eGFR) will [...] individuals. Performed By: #### 3 2044 #### [facility] [address] [place] [id number], [facility] Glucose [Mass/Vol] 114 mg/dL High 70-100 [facility] Comment on above: Order Comment: No: D o not add to previous draw Performed By: #### 3 2044 #### [facility] [address] [place] [address], [facility] Potassium [Moles/Vol] 4.4 mmol/L Normal 3.5-5.1 [facility] Comment on above: Order Comment: No: D o not add to previous draw Performed By: #### 3 2044 #### [facility] [address] [facility] [place] [address], [facility] Sodium [Moles/Vol] 137 mmol/L Normal 136-145 [facility] Comment on above: Order Comment: No: D o not add to previous draw Performed By: #### 3 2044 #### [facility] [address] [facility] [place] [address], [facility] Urea nitrogen [Mass/Vol] 61 mg/dL High 7-25 [facility] Comment on above: Order Comment: No: D o not add to previous draw Performed By: #### 3 2044 #### [facility] [address] [facility] [place] [address], [facility] BNP (B-TYPE NATRIURETIC PEPT ANH)on 04-25-2022 Natriuretic peptide B (Bld) [Mass/Vol] 1813 pg/mL High 0-100 [facility] Comment on above: Order Comment: Yes: Add to Previous draw if able Result Comment: Give n the appropriate clinical setting a BNP result of >100 pg/mL indicates congestive heart failure. Performed By: #### 3 2044 #### [facility] [address] [place] [address], [facility] C REACTIVE PROTEINon 022 CRP [Mass/Vol] 17.2 mg/L High 0.0-7.0 [facility] Comment on above: Order Comment: No: D o not add to previous draw Performed By: #### 5 0103 #### [facility] [address] [facility] [place] [address], [facility] CBC W/DIFFon 04-25-2022 ABS IMM GRANS 0.0 10*3/uL Normal 0.0-0.2 [facility] Comment on above: Performed By: #### 5 0103 #### [facility] [address] [facility] [place] [address], [facility] ABS NEUTROPHILS 5.4 10*3/uL Normal 1.6-7.6 [facility] Comment on above: Performed By: #### 5 0103 #### [facility] [address] [facility] [place] [address], [facility] Basophils (Bld) [#/Vol] 0.0 10*3/uL Normal 0.0-0.2 [facility] Comment on above: Performed By: #### 5 0103 #### [facility] [address] [facility] [place] [address], [facility] Basophils/100 WBC (Bld) 0.6 % Normal 0.0-1.0 [facility] Comment on above: Performed By: #### 5 0103 #### [facility] [address] [facility] [place] [address], [facility] Eosinophils (Bld) [#/Vol] 0.2 10*3/uL Normal 0.0-0.5 [facility] Comment on above: Performed By: #### 5 0103 #### [facility] [address] [facility] [place] [address], [facility] Eosinophils/100 WBC (Bld) 2.5 % Normal 0.0-6.0 [facility] Comment on above: Performed By: #### 5 3 #### [facility] [address] [place] [address], [facility] Erythrocyte distribution width (RBC) [Ratio] 19.9 % High 11.5-15.0 [facility] Comment on above: Performed By: #### 3 #### [facility] [address] [facility] [address], [facility] Hematocrit (Bld) [Volume fraction] 31.6 % Low 39.0-50.0 [facility] Comment on above: Performed By: #### 3 #### [facility] [address] [facility] [place] [address], [facility] Hemoglobin (Bld) [Mass/Vol] 9.3 g/dL Low 13.0-17.0 [facility] Comment on above: Performed By: #### 3 #### [facility] [address] [facility] [place] [address], [facility] IMMATURE GRANS 0.2 % Normal 0.0-1.0 [facility] Comment on above: Performed By: #### 3 #### [facility] [address] [facility]. [address] Lymphocytes (Bld) [#/Vol] 0.3 10*3/uL Low 1.2-4.0 [facility] Comment on above: Performed By: #### 5 3 #### [facility] [address] [place] [address], [facility] Lymphocytes/100 WBC (Bld) 4.4 % Low 20.0-45.0 [facility] Comment on above: Performed By: #### 3 #### [facility] [address] [facility] [place] [address], [facility] MCH (RBC) [Entitic mass] 23.1 pg Low 27.0-33.0 [facility] Comment on above: Performed By: #### 3 #### [facility] [address] [facility] [place] [address], [facility] MCHC (RBC) [Mass/Vol] 29.4 g/dL Low 32.0-35.0 [facility] Comment on above: Performed By: #### 3 #### [facility] [address] [facility] [place] [address], [facility] MCV (RBC) [Entitic vol] 78.6 fL Low 82.0-98.0 [facility] Comment on above: Performed By: #### 3 #### [facility] [address] [place] [address], [facility] Monocytes (Bld) [#/Vol] 0.6 10*3/uL Normal 0.1-1.0 [facility] Comment on above: Performed By: #### 102 #### [facility] [address] MONOS 8.9 % Normal 5.0-12.0 [facility] Comment on above: Performed By: #### 102 #### [facility] [address] Neutrophils/100 WBC (Bld) 83.4 % High 40.0-72.0 [facility] Comment on above: Performed By: #### 102 #### [facility] [address] Nucleated RBC/100 WBC (Bld) [Ratio] 0 % Normal 0-0 [facility] Comment on above: Performed By: #### 5 3 #### [facility] [address] [facility] [place] [address], [facility] PLAT CNT 191 10*3/uL Normal 150-400 [facility] Comment on above: Performed By: #### 5 3 #### [facility] [address] [place] [address], [facility] RBC (Bld) [#/Vol] 4.02 10*6/uL Low 4.20-5.70 [facility] Comment on above: Performed By: #### 5 3 #### [facility] [address] WBC (Bld) [#/Vol] 6.43 10*3/uL Normal 4.00-10.60 [facility] Comment on above: Performed By: #### 5 0103 #### [facility] [address] [place] [address], [facility] COMPLEMENT 3on 04-25-2022 COMPLEMENT 3 104 mg/dL Normal 79-152 [facility] Comment on above: Order Comment: No: D o not add to previous draw Performed By: #### 5 0103 #### [facility] [address] [facility] [place] [address], [facility] COMPLEMENT 4on 04-25-2022 COMPLEMENT 4 23 mg/dL Normal 16-38 [facility] Comment on above: Order Comment: No: D o not add to previous draw Performed By: #### 5 0103 #### [facility] [address] [facility]. [address] CPKon 04-25-2022 CK [Catalytic activity/Vol] 23 U/L Low 30-223 [facility] Comment on above: Order Comment: No: D o not add to previous draw Performed By: #### 7 0207 #### [facility] [address] CREATININE URINE RANDOMon Creatinine (U) [Mass/Vol] 104.0 mg/dL Normal [facility] Comment on above: Order Comment: Check Pacemaker/AICD Lead Position, Chest X-ray PA \EANDE\ LAT in Dept ;DO NOT lift affected arm above shoulder. S/P pacemaker/ICD implant. Verify lead placement Result Comment: Ther e are no established reference values for random urine specimens Performed By: #### 4 5799, 14030 ####[facility] [place] [address], [facility] FERRITINon 04-25-2022 Ferritin [Mass/Vol] 50 ng/mL Normal 24-336 [facility] Comment on above: Order Comment: No: D o not add to previous draw Performed By: #### 7 0207 #### [facility] [address] [place] [address], [facility] HEPATITIS B CORE ANTIBODYon 04-25-2022 HEP B CORE AB Non-Reactive Normal NONREACTIVE [facility] Comment on above: Order Comment: No: D o not add to previous draw Performed By: #### 7 0207 #### [facility] [address] [place] [address], [facility] HEPATITIS C ANTIBODYon 04-25 ANTI-HCV Non-Reactive Normal NONREACTIVE [facility] Comment on above: Order Comment: No: D o not add to previous draw Performed By: #### 7 0207 #### [facility] [address] [place] [address], [facility] IMMUNOFIXATION BLOODon 04-25 IgA [Mass/Vol] 733 mg/dL High 60-413 [facility] Comment on above: Performed By: #### 5 0103 #### [facility] [address] [place] [address], [facility] IgG [Mass/Vol] 1330 mg/dL Normal 591-1540 [facility] Comment on above: Performed By: #### 5 0103 #### [facility] [address] [place] [address], [facility] IgM [Mass/Vol] 365 mg/dL High 54-285 [facility] Comment on above: Performed By: #### 5 0103 #### [facility] [address] [place] [address], [facility] IMMUNOFIXATION Normal [facility] Comment on above: Result Comment: Seru m immunofixation reveals a monoclonal Eolia M gammopathy. SEE SEPARATE REPORT Performed By: #### 5 0103 #### [facility] [address] [place] [address], [facility] KAPPA LIGHT CHN See [place] report. Normal 0.33-1.94 [facility] Comment on above: Performed By: #### 5 3 #### [facility] [address] [place] [address], [facility] KAPPA/LAMDBA RATIO See [place] report. Normal 0.26-1.65 [facility] Comment on above: Result Comment: For patients with renal impairment, use a kappa/lambda ratio of 0.37-3.10 Performed By: #### 5 102 #### [facility] [address] [place] [address], [place] LAMBDA LIGHT CHN See [place] report. Normal 0.57-2.63 [facility] Comment on above: Performed By: #### 5 102 #### [facility] [address] [place] [address], [facility] LIVER BATTERYon 04-25-2022 Albumin [Mass/Vol] 3.3 g/dL Low 3.5-5.7 [facility] Comment on above: Order Comment: No: D o not add to previous draw Performed By: #### 3 2044 #### [facility] [address] [place] [address], [facility] ALKALINE PHOSPH 78 IU/L Normal 34-104 [facility] Comment on above: Order Comment: No: D o not add to previous draw Performed By: #### 3 2044 #### [facility] [address] [place] [address], [facility] ALT [Catalytic activity/Vol] 15 U/L Normal 7-52 [facility] Comment on above: Order Comment: No: D o not add to previous draw Performed By: #### 3 2044 #### [facility] [address] [place] [address], [place] AST [Catalytic activity/Vol] 16 U/L Normal 13-39 [facility] Comment on above: Order Comment: No: D o not add to previous draw Performed By: #### 3 2044 #### [facility] [address] [place] [address], [facility] Bilirubin [Mass/Vol] 1.2 mg/dL High 0.3-1.0 [facility] Comment on above: Order Comment: No: D o not add to previous draw Performed By: #### 3 2044 #### [facility] [address] [place] [address], [facility] Bilirubin.direct [Mass/Vol] 0.4 mg/dL High 0.0-0.2 [facility] Comment on above: Order Comment: No: D o not add to previous draw Performed By: #### 3 2044 #### [facility] [address] [place] [address], [facility] Protein [Mass/Vol] 6.8 g/dL Normal 6.0-8.3 [facility] Comment on above: Order Comment: No: D o not add to previous draw Performed By: #### 3 2044 #### [facility] [address] [place] [address], [facility] MAGNESIUM BLOODon 04-25-2022 Magnesium [Mass/Vol] 2.7 mg/dL Normal 1.9-2.7 [facility] Comment on above: Order Comment: No: D o not add to previous draw Performed By: #### 3 2044 #### [facility] [address] [place] [address], [facility] PHOSPHORUS BLOODon Phosphate [Mass/Vol] 3.7 mg/dL Normal 2.5-5.0 [facility] Comment on above: Order Comment: No: D o not add to previous draw Performed By: #### 7 0207 #### [facility] [address] [place] [address], [facility] POC SARS COV2 ANTIGEN NEGATI VEon 04-25-2022 POC SARS COV2 ANTIGEN NEG Negative Normal NEGATIVE [facility] Comment on above: Result Comment: Nega [...] antigen from SARS-CoV-2 in direct nasopharyngeal swab (CAD DESIGNER DRAFTER) specimens from individuals who are suspected of [...] of Accreditation. Performed By: #### 3 4 ####[facility] [place] [address], [facility] PROTEIN ELECT Marcos 04-25-2022 Protein [Mass/Vol] 6.9 g/dL Normal 6.0-8.3 [facility] Comment on above: Order Comment: No: D o not add to previous draw Performed By: #### 7 0207 #### [facility] [address] [place] [address], [facility] Protein [Mass/Vol] 0.20 g/dL High 0.00-0.00 [facility] Comment on above: Order Comment: No: D o not add to previous draw Performed By: #### 7 0207 #### [facility] [address] [place] [address], [facility] PROTEIN ELECT Normal [facility] Comment on above: Order Comment: No: D o not add to previous draw Result Comment: The abnormal band in the gamma globulin region suggests monoclonal gammopathy. SEE SEPARATE REPORT Performed By: #### 7 0207 #### [facility] [address] [facility] [place] [address], [facility] PROTEIN ELECT URon 2 PROTEIN ELECT No abnormal bands se en. SEE SEPARATE REPORT Normal [facility] Comment on above: Order Comment: Check Pacemaker/AICD Lead Position, Chest X-ray PA \EANDE\ LAT in Dept ;DO NOT lift affected arm above shoulder. S/P pacemaker/ICD implant. Verify lead placement Performed By: #### 4 1918, [id number] ####[facility] [place] [address], [facility] U TOTAL PROTEIN 47.8 mg/dL Normal [facility] Comment on above: Order Comment: Check Pacemaker/AICD Lead Position, Chest X-ray PA \EANDE\ LAT in Dept ;DO NOT lift affected arm above shoulder. S/P pacemaker/ICD implant. Verify lead placement Result Comment: Ther e are no established reference values for random urine specimens Performed By: #### 4 1918, [id number] ####[facility] [place] [address], [facility] PROTHROMBIN TIMEon 2 INR Coag (PPP) [Relative time] 1.71 {INR} High 0.91-1.16 [facility] Comment on above: Order Comment: [...] 1995;108:[id number]-246S. Performed By: #### 5 0103 #### [facility] [address] [place] [address], [facility] PT Coag (PPP) [Time] 19.8 s High 12.3-14.8 [facility] Comment on above: Order Comment: No: D o not add to previous draw Result Comment: ALL RESULTS MUST BE INTERPRETED WITH RESPECT TO BLOOD DRAWING ARTIFACT OR DILUTION ERROR OF ANTICOAGULANT AT THE TIME OF SAMPLING. Performed By: #### 5 0103 #### [facility] [address] [place] [address], [facility] SEDIMENTATION RATEon 022 SED RATE 63 mm/hr High 0-10 [facility] Comment on above: Order Comment: No: D o not add to previous draw Performed By: #### 5 0608 #### [facility] [address] [place] [address], [facility] SERUM FREE LIGHT CHAINS ILon 04-25-2022 FREE KAPPA LIGHT CHAINS 14.36 mg/dL High 0.37-1.94 [facility] FREE KAPPA/LAMBDA RATIO 2.00 High 0.26-1.65 [facility] FREE LAMBDA LIGHT CHAINS 7.19 mg/dL High 0.57-2.63 [facility] IL Normal [facility] Comment on above: Result Comment: Test Performed by [facility] [address] [place] [address] - Released 05/02/2022 21:21 Result changed by IF on 05/02/2022 21:21. The previous value was Test Performed by [facility] [address] [place] [phone].. TIBC- INCLUDES IRONon 2021 FE SATURATION 9 % Low 20-50 [facility] Comment on above: Order Comment: No: D o not add to previous draw Performed By: #### 7 0207 #### [facility] [address] [place] [address], [facility] Iron [Mass/Vol] 31 ug/dL Low 50-212 [facility] Comment on above: Order Comment: No: D o not add to previous draw Performed By: #### 7 0207 #### [facility] [address] [facility] [address], [facility] TIBC 349 mcg/dL Normal 250-450 [facility] Comment on above: Order Comment: No: D o not add to previous draw Performed By: #### 7 0207 #### [facility] [address] [facility] [place] [place] [address], [facility] UIBC 318 mcg/dL Normal 155-355 [facility] Comment on above: Order Comment: No: D o not add to previous draw Performed By: #### 7 0207 #### [facility] [address] [place], [place] [address] [place] [address] TROPONIN-Ion 04-25-2022 Troponin I.cardiac [Mass/Vol] 0.03 ng/mL Normal 0.00-0.04 [facility] Comment on above: Order Comment: No: D o not add to previous draw Result Comment: REFE RENCE RANGES: 0.00 - 0.04 ng/ml NORMAL 0.05 - 0.50 ng/ml INDETERMINATE > 0.50 ng/ml CONSISTENT WITH AN M.I. Performed By: #### 3 2045 #### [facility] [address] [place] [address], [facility] US RENAL WITH BLADDERon 04-08 US RENAL WITH BLADDER [facility] Department of Radiology [address] [place] [id number] Patient Name: MAN PATEL : 1950 Sex: M Age: Race: White Pt. Location: [id number] Patient Status: I Ordered Date: 04/25/2022 3:40:00 [...] cyst. Electronically signed: Joel Lambert. Transcribed by: [email or web address], User Resident: Electronically Signed by: TIFFANIE CASTILLO @ 05/08/2022 08:26 AM Normal [facility] Comment on above: Order Comment: R/O H ydronephrosis BNPon 04-24-2022 Natriuretic peptide B (Bld) [Mass/Vol] 38876.0 pg/mL Critically high <=900.0 [facility] Comment on above: Performed By: #### H STROPN, BNP, BMP ####[facility] [address] [place] [address]Dr. Elba Raj CBC AUTO DIFFon 04-24-2022 BASO # 0.1 103/ul Normal 0.0-0.1 [facility] Comment on above: Performed By: #### C BC ####[facility] B[address]ex[address] [place], [place] [address]Dr. Elba Anthony Basophils/100 WBC (Bld) 0.8 % Normal 0.2-2.0 [facility] Comment on above: Performed By: #### C BC ####[facility] Oos[address] [place], [place] [address]Dr. Elba Anthony EO # 0.2 103/ul Normal 0.0-0.7 [facility] Comment on above: Performed By: #### C BC ####[facility] Xcrerijejs[address] [place], [place] [address]Dr. Elba Anthony Eosinophils/100 WBC (Bld) 3.0 % Normal 0.9-7.0 [facility] Comment on above: Performed By: #### C BC ####[facility] Sxxypvrfvo9[address] [place], [place] [address]Dr. Elba Anthony Erythrocyte distribution width (RBC) [Ratio] 20.0 % Critically high 11.0-15.0 [facility] Comment on above: Performed By: #### C BC ####[facility] Owclvejurl9[address] [place], [place] [address]Dr. Elba Anthony Hematocrit (Bld) [Volume fraction] 32.7 % Critically low 42.0-54.0 [facility] Comment on above: Performed By: #### C BC ####[facility] Ykkrj[address]azl[address] [place], [place] [address]Dr. Elba Anthony Hemoglobin (Bld) [Mass/Vol] 9.7 g/dL Critically low 14.0-18.0 [facility] Comment on above: Performed By: #### C BC ####[facility] [address] [place] [address]DrLatoya Anthony IG # 0.02 10e3/ul Normal 0.00-0.03 [facility] Comment on above: Performed By: #### C BC ####[facility] Qbpwctstwi7359 [place] [address]DrLatoya Anthony IG % 0.3 % Normal 0.0-0.5 [facility] Comment on above: Performed By: #### C BC ####[facility] Tvmijesjby16[address] [place] [address]DrLatoya Anthony LYMPH # 0.3 103/ul Critically low 1.2-3.8 [facility] Comment on above: Performed By: #### C BC ####[facility] Hesaoozcnj35[address] [place] [address]DrLatoya Anthony Lymphocytes/100 WBC (Bld) 4.9 % Critically low 20.5-60.0 [facility] Comment on above: Performed By: #### C BC ####[facility] Vex[address]krhbe[address] [place] [address]DrLatoya Anthony MANUAL DIFF REQ NO Normal [facility] Comment on above: Performed By: #### C BC ####[facility] Azmhwnqvlm2646 [place] [address]DrLatoya Anthony MCH (RBC) [Entitic mass] 23.8 pg Critically low 25.9-34.0 [facility] Comment on above: Performed By: #### C BC ####[facility] Zlqovzyrwy7176 [place] [address]DrLatoya Anthony MCHC (RBC) [Mass/Vol] 29.7 g/dL Critically low 29.9-35.2 [facility] Comment on above: Performed By: #### C BC ####[facility] Dvvuhelotn4951 [place] [address]DrLatoya Anthony MCV (RBC) [Entitic vol] 80.3 fL Normal 80.0-94.0 [facility] Comment on above: Performed By: #### C BC ####[facility] Kfdyaadlwy9178 [place] [address]Dr. Elba Anthony MONO # 0.6 103/ul Normal 0.3-0.8 [facility] Comment on above: Performed By: #### C BC ####[facility] Bcvhcunrit1498 [place] [address]Dr. Elba Anthony Monocytes/100 WBC (Bld) 9.6 % Normal 1.7-12.0 [facility] Comment on above: Performed By: #### C BC ####[facility] Bzqqhuzhyf69[address] [place] [address]Dr. Elba Anthony NEUT # 5.2 103/ul Normal 1.4-6.5 [facility] Comment on above: Performed By: #### C BC ####[facility] Aqjepvqkpw[address] [place], [place] [address]Dr. Elba Anthony Neutrophils/100 WBC (Bld) 81.4 % Critically high 43.0-75.0 [facility] Comment on above: Performed By: #### C BC ####[facility] Uclmtxiypx[address] [place], [place] [address]Dr. Elba Anthony Platelet mean volume (Bld) [Entitic vol] 10.1 fL Normal 9.5-13.5 [facility] Comment on above: Performed By: #### C BC ####[facility] Bhahpnttoh3267[address] [place], [place] [address]Dr. Elba Anthony PLT 214 103/ul Normal 150-450 [facility] Comment on above: Performed By: #### C BC ####[facility] [address] [place], [place] [address]Dr. Elba Anthony RBC 4.07 106/ul Critically low 4.70-6.10 [facility] Comment on above: Performed By: #### C BC ####[facility] [address]uzxqnt4[address] [place] [id number]. Elba Raj WBC 6.4 103/ul Normal 4.0-11.0 [facility] Comment on above: Performed By: #### C BC ####[facility] Htzhy[address]scct16[address] [place] [address]Dr. Elba Anthony Covid-19 PCR (CVDTB)on 04-08 SARS-CoV-2 (COVID-19) RNA ELIZABETH+probe Ql (Unsp spec) Not detected Normal NOT DETECTED [facility] Comment on above: Result Comment: When diagnostic [...] for this test is supported by the [place] of Health and Human Service's declaration that [...] be used). Performed By: #### C VDTB ####[facility] Vddfianfsz68[address] [place] [address]Dr. Elba Anthony ER URINE PROFILEon 2 Bilirubin Ql (U) Negative Normal NEGATIVE [facility] Comment on above: Performed By: #### E RUR ####[facility] Hlsvfesovy[address] [place], [place] [address]Dr. Elba Anthony Clarity (U) CLEAR Normal CLEAR [facility] Comment on above: Performed By: #### E RUR ####[facility] Soxipouxky[address] [place], [place] [address]DrLatoya Anthony Color (U) LT. YELLOW Normal YELLOW [facility] Comment on above: Performed By: #### E RUR ####[facility] Vwrqawarsq[address] [place], [place] [address]DrLatoya COTTON A micrscopic examina tion will be performed if indicated. Normal [facility] Comment on above: Performed By: #### E RUR ####[facility] Aqyxspddgh1310[address] [place], [place] [address]Dr. Elba Anthony Glucose Ql (U) Negative Normal NEGATIVE [facility] Comment on above: Performed By: #### E RUR ####[facility] Hhpnibxibo[address] [place], [place] [address]Dr. Elba Raj Hemoglobin Ql (U) Negative Normal NEGATIVE [facility] Comment on above: Performed By: #### E RUR ####[facility] Ttuhfjzqef456[address] [place], [place] [address]Dr. Nereydasiobhan Raj Ketones Ql (U) Negative Normal NEGATIVE [facility] Comment on above: Performed By: #### E RUR ####[facility] Siqepmqlmp25[address] [place], [place] [address]Dr. Elba Anthony LEUKOCYTES Negative Normal NEGATIVE [facility] Comment on above: Performed By: #### E RUR ####[facility] Kvdtsqvvzj2617[address] [place], [place] [address]Dr. Nereydasiobhan Anthony Nitrite Ql (U) Negative Normal NEGATIVE [facility] Comment on above: Performed By: #### E RUR ####[facility] Begsntkpoy3095[address] [place], [place] [address]Dr. Elba Anthony pH (U) 6.0 [pH] Normal 5-9 [facility] Comment on above: Performed By: #### E RUR ####[facility] Hrlvvztuob5646[address] [place], [place] [address]Dr. Elba Anthony SPEC GRAVITY 1.010 Normal 1.005-<=1.02 5 [facility] Comment on above: Performed By: #### E RUR ####[facility] Kyjpgcxkqi2824[address] [place], [place] [address]Dr. Elba Anthony UA PROTEIN Negative Normal NEGATIVE/ TRACE [facility] Comment on above: Performed By: #### E RUR ####[facility] Namfdcmfwc228[address] [place], [place] [address]Dr. Elba Anthony UR MICRO IND NOT INDICATED Normal [facility] Comment on above: Performed By: #### E RUR ####[facility] Oisplyfgjs[address] [place], [place] [address]Dr. Elba Anthony Urobilinogen Qn (U) 2.0 {Caden'U}/dL Abnormal 0.2 - 1. 0 [facility] Comment on above: Performed By: #### E RUR ####[facility] Xliwztfnex107[address] [place], [place] [address]Dr. Elba Anthony PROF CHEM 8 (BAS METB)on Anion gap [Moles/Vol] 16.7 mmol/L Normal [facility] Comment on above: Performed By: #### H STROPN, BNP, BMP ####[facility] Yumdzwyclx765[address] [place], [place] [address]Dr. Elba Anthony Calcium [Mass/Vol] 9.2 mg/dL Normal 8.5-10.1 [facility] Comment on above: Performed By: #### H STROPN, BNP, BMP ####[facility] Fhspyigbgu[address] [place], [place] [address]Dr. Elba Anthony Chloride [Moles/Vol] 97 mmol/L Critically low 98-107 [facility] Comment on above: Performed By: #### H STROPN, BNP, BMP ####[facility] Cxlxtzejdu[address] [place], [place] [address]Dr. Elba Anthony CO2 [Moles/Vol] 26.3 mmol/L Normal 21.0-32.0 [facility] Comment on above: Performed By: #### H STROPN, BNP, BMP ####[facility] Zzuzgqaxcd[address] [place], [place] [address]Dr. Elba Anthony Creatinine [Mass/Vol] 3.32 mg/dL Critically high 0.70-1.30 [facility] Comment on above: Performed By: #### H STROPN, BNP, BMP ####[facility] Wgmpyvwlon4[address] [place], [place] [address]Dr. Elba Anthony EGFR-AF UGANDAN 22 mL/min/1.73m2 Critically low >=60 [facility] Comment on above: Performed By: #### H STROPN, BNP, BMP ####[facility] Pysmarxioo[address] [place] [address]Dr. Elba Anthony EGFR-NON AF UGANDAN 18 mL/min/1.73m2 Critically low >=60 [facility] Comment on above: Performed By: #### H STROPN, BNP, BMP ####[facility] Kzuhsbzxzh89[address] [place] [address]Dr. Elba Anthony Glucose [Mass/Vol] 158 mg/dL Critically high 74-106 [facility] Comment on above: Performed By: #### H STROPN, BNP, BMP ####[facility] Tvvrriyugt0618 [place] [address]Dr. Elba Anthony Potassium [Moles/Vol] 5.0 mmol/L Normal 3.5-5.1 [facility] Comment on above: Performed By: #### H STROPN, BNP, BMP ####[facility] Myslutngxr0816 [place] [address]Dr. Elba Anthony Sodium [Moles/Vol] 135 mmol/L Critically low 136-145 [facility] Comment on above: Performed By: #### H STROPN, BNP, BMP ####[facility] Kfzybyudhs[address] [place], [place] [address]Dr. Elba Anthony Urea nitrogen [Mass/Vol] 67.0 mg/dL Critically high 7.0-18.0 [facility] Comment on above: Performed By: #### H STROPN, BNP, BMP ####[facility] Tmozldqwmj0445 [place] [address]Dr. Elba Anthony Urea nitrogen/Creatinine [Mass ratio] 20.2 mg/mg Normal [facility] Comment on above: Performed By: #### H STROPN, BNP, BMP ####[facility] Wslxmdwlmr[address] [place], [place] [address]Dr. Elba Anthony TROPONIN, HIGH SENSITIVITYon 04-24-2022 HSTROP 36.4 pg/mL Normal 4.0-76.1 [facility] Comment on above: Result Comment: CUT- OFF POINTS HAVE BEEN ESTABLISHED BASED ON THE FOURTH UNIVERSAL DEFINITIONS OF MYOCARDIALINFARCTION. THE UPPER REFERENCE LIMIT (URL) OF TROPONIN, DEFINED THE 99TH PERCENTILE OFcTnI DISTRIBUTION IN A REFERENCE POPULATION, HAS BEEN CONFIRMED THE DECISION THRESHOLDFOR MT DIAGNOSIS. Performed By: #### H STROPN, BNP, BMP ####[facility] Iwudjcvltb[address] [place], [place] [address]Dr. Elba Anthony XR CHEST 1 Von 04-24-2022 XR CHEST 1 V Normal [facility] BNPon 04-22-2022 Natriuretic peptide B (Bld) [Mass/Vol] 88441.0 pg/mL Critically high <=900.0 [facility] Comment on above: Performed By: #### B CAD DESIGNER DRAFTER, BMP ####[facility] Yyywvuyeir20[address] [place], [place] [address]Dr. Elba Anthony PROF CHEM 8 (BAS METB)on Anion gap [Moles/Vol] 13.8 mmol/L Normal [facility] Comment on above: Performed By: #### B CAD DESIGNER DRAFTER, BMP ####[facility] Votbozdapx[address] [place], [place] [address]Dr. Elba Anthony Calcium [Mass/Vol] 8.7 mg/dL Normal 8.5-10.1 [facility] Comment on above: Performed By: #### B CAD DESIGNER DRAFTER, BMP ####[facility] Iwosaphtzk4110[address] [place], [place] [address]Dr. Elba Anthony Chloride [Moles/Vol] 98 mmol/L Normal 98-107 [facility] Comment on above: Performed By: #### B CAD DESIGNER DRAFTER, BMP ####[facility] Qeyiyqjwfc93[address] [place], [place] [address]Dr. Elba Anthony CO2 [Moles/Vol] 29.1 mmol/L Normal 21.0-32.0 [facility] Comment on above: Performed By: #### B CAD DESIGNER DRAFTER, BMP ####[facility] Cvccwgaofj119[address] [place], [place] [address]Dr. Elba Anthony Creatinine [Mass/Vol] 2.89 mg/dL Critically high 0.70-1.30 [facility] Comment on above: Performed By: #### B CAD DESIGNER DRAFTER, BMP ####[facility] Jbzxcuohkh9880 [place] [address]Dr. Elba Anthony EGFR-AF UGANDAN 26 mL/min/1.73m2 Critically low >=60 [facility] Comment on above: Performed By: #### B CAD DESIGNER DRAFTER, BMP ####[facility] Aqauartjqt[address] [place], [place] [address]Dr. Elba Anthony EGFR-NON AF UGANDAN 22 mL/min/1.73m2 Critically low >=60 [facility] Comment on above: Performed By: #### B CAD DESIGNER DRAFTER, BMP ####[facility] Czlwwkfblo1427[address] [place], [place] [address]Dr. Elba Anthony Glucose [Mass/Vol] 108 mg/dL Critically high 74-106 T [facility] Comment on above: Performed By: #### B CAD DESIGNER DRAFTER, BMP ####[facility] Lomeyuyjey[address] [place], [place] [address]Dr. Elba Anthony Potassium [Moles/Vol] 4.9 mmol/L Normal 3.5-5.1 [facility] Comment on above: Performed By: #### B CAD DESIGNER DRAFTER, BMP ####[facility] Vflsmombfn[address]25[address] [place], [place] [address]Dr. Elba Anthony Sodium [Moles/Vol] 136 mmol/L Normal 136-145 [facility] Comment on above: Performed By: #### B CAD DESIGNER DRAFTER, BMP ####[facility] Joilnbedlp94[address] [place], [place] [address]Dr. Elba Anthony Urea nitrogen [Mass/Vol] 63.0 mg/dL Critically high 7.0-18.0 [facility] Comment on above: Performed By: #### B CAD DESIGNER DRAFTER, BMP ####[facility] Etsqsxoagp[address] [place], [place] [address]Dr. Elba Anthony Urea nitrogen/Creatinine [Mass ratio] 21.8 mg/mg Normal [facility] Comment on above: Performed By: #### B CAD DESIGNER DRAFTER, BMP ####[facility] Rjtuxdndsh[address] [place], [place] [address]Dr. Elba Anthony BNPon 04-15-2022 Natriuretic peptide B (Bld) [Mass/Vol] 52431.0 pg/mL Critically high <=900.0 [facility] Comment on above: Result Comment: repe ated Performed By: #### B CAD DESIGNER DRAFTER, BMP ####[facility] Ayegymocxt[address] [place], [place] [address]Dr. Elba Anthony PROF CHEM 8 (BAS METB)on Anion gap [Moles/Vol] 16.8 mmol/L Normal [facility] Comment on above: Performed By: #### B CAD DESIGNER DRAFTER, BMP ####[facility] Lyiuoglyvy[address] [place], [place] [address]Dr. Elba Anthony Calcium [Mass/Vol] 8.4 mg/dL Critically low 8.5-10.1 [facility] Comment on above: Performed By: #### B CAD DESIGNER DRAFTER, BMP ####[facility] Duygsihhmc[address] [address] [place], [place] [address]Dr. Elba Anthony Chloride [Moles/Vol] 96 mmol/L Critically low 98-107 [facility] Comment on above: Performed By: #### B CAD DESIGNER DRAFTER, BMP ####[facility] Mrcijceuev879[address] [place], [place] [address]Dr. Elba Anthony CO2 [Moles/Vol] 26.9 mmol/L Normal 21.0-32.0 [facility] Comment on above: Performed By: #### B CAD DESIGNER DRAFTER, BMP ####[facility] Stldazcwub3217[address] [place], [place] [address]Dr. Elba Anthony Creatinine [Mass/Vol] 2.83 mg/dL Critically high 0.70-1.30 [facility] Comment on above: Performed By: #### B CAD DESIGNER DRAFTER, BMP ####[facility] Rninttvwrt184626 [address] [place], [place] [address]Dr. Elba Anthony EGFR-AF UGANDAN 27 mL/min/1.73m2 Critically low >=60 [facility] Comment on above: Performed By: #### B CAD DESIGNER DRAFTER, BMP ####[facility] Vmwbsyqtjc820826 [address] [place], [place] [address]Dr. Elba Anthony EGFR-NON AF UGANDAN 22 mL/min/1.73m2 Critically low >=60 [facility] Comment on above: Performed By: #### B CAD DESIGNER DRAFTER, BMP ####[facility] Opzpbvwral75[address] [place] [address]Dr. Elba Anthony Glucose [Mass/Vol] 118 mg/dL Critically high 74-106 [facility] Comment on above: Performed By: #### B CAD DESIGNER DRAFTER, BMP ####[facility] Zgabdcgkwc419826 [address] [place], [place] [address]Dr. Elba Anthony Potassium [Moles/Vol] 4.7 mmol/L Normal 3.5-5.1 [facility] Comment on above: Performed By: #### B CAD DESIGNER DRAFTER, BMP ####[facility] Tcwcfahpyv2557[address] [place], [place] [address]Dr. Elba Anthony Sodium [Moles/Vol] 135 mmol/L Critically low 136-145 [facility] Comment on above: Performed By: #### B CAD DESIGNER DRAFTER, BMP ####[facility] Zmmlgbyfia745626 [address] [place], [place] [address]Dr. Elba Anthony Urea nitrogen [Mass/Vol] 68.0 mg/dL Critically high 7.0-18.0 [facility] Comment on above: Performed By: #### B CAD DESIGNER DRAFTER, BMP ####[facility] Eujufmiubj486026 [address] [place], [place] [address]Dr. Elba Anthony Urea nitrogen/Creatinine [Mass ratio] 24.0 mg/mg Normal [facility] Comment on above: Performed By: #### B CAD DESIGNER DRAFTER, BMP ####[facility] Gobdagucef690726 [address] [place], [place] [address]Dr. Elba Anthony BNPon 04-02-2022 Natriuretic peptide B (Bld) [Mass/Vol] 84193.0 pg/mL Critically high <=900.0 [facility] Comment on above: Performed By: #### B CAD DESIGNER DRAFTER, BMP ####[facility] Xjrwfrpldv159526 [address] [place], [place] [address]Dr. Elba Anthony PROF CHEM 8 (BAS METB)on Anion gap [Moles/Vol] 9.7 mmol/L Normal [facility] Comment on above: Performed By: #### B CAD DESIGNER DRAFTER, BMP ####[facility] Pgvffpjknr377326 [address] [place], [place] [address]Dr. Elba Anthony Calcium [Mass/Vol] 8.8 mg/dL Normal 8.5-10.1 [facility] Comment on above: Performed By: #### B CAD DESIGNER DRAFTER, BMP ####[facility] Rwklbgplpq349326 [address] [place], [place] [address]Dr. Elba Anthony Chloride [Moles/Vol] 99 mmol/L Normal 98-107 [facility] Comment on above: Performed By: #### B CAD DESIGNER DRAFTER, BMP ####[facility] Orwrfwjiya722426 [address] [place], [place] [address]Dr. Elba Anthony CO2 [Moles/Vol] 31.1 mmol/L Normal 21.0-32.0 [facility] Comment on above: Performed By: #### B CAD DESIGNER DRAFTER, BMP ####[facility] Lcqrzpskyl423726 [address] [place], [place] [address]Dr. Elba Anthony Creatinine [Mass/Vol] 2.45 mg/dL Critically high 0.70-1.30 [facility] Comment on above: Performed By: #### B CAD DESIGNER DRAFTER, BMP ####[facility] Fsebdgrgex742726 [address] [place], [place] [address]Dr. Elba Anthony EGFR-AF UGANDAN 32 mL/min/1.73m2 Critically low >=60 [facility] Comment on above: Performed By: #### B CAD DESIGNER DRAFTER, BMP ####[facility] Fpmpgmcyza518526 [address] [place], [place] [address]Dr. Elba Anthony EGFR-NON AF UGANDAN 26 mL/min/1.73m2 Critically low >=60 [facility] Comment on above: Performed By: #### B CAD DESIGNER DRAFTER, BMP ####[facility] Sncndatfoq045426 [address] [place], [place] [address]Dr. Elba Anthony Glucose [Mass/Vol] 101 mg/dL Normal 74-106 [facility] Comment on above: Performed By: #### B CAD DESIGNER DRAFTER, BMP ####[facility] Xpgbczdxsz570126 [address] [place], [place] [address]Dr. Elba Anthony Potassium [Moles/Vol] 3.8 mmol/L Normal 3.5-5.1 [facility] Comment on above: Performed By: #### B CAD DESIGNER DRAFTER, BMP ####[facility] Pjogmseloe7319 [place] [address]Dr. Elba Anthony Sodium [Moles/Vol] 136 mmol/L Normal 136-145 [facility] Comment on above: Performed By: #### B CAD DESIGNER DRAFTER, BMP ####[facility] Dczjuuhkkj130726 [address] [place], [place] [address]Dr. Elba nAthony Urea nitrogen [Mass/Vol] 46.0 mg/dL Critically high 7.0-18.0 [facility] Comment on above: Performed By: #### B CAD DESIGNER DRAFTER, BMP ####[facility] Qtjoluxmet975926 [address] [place], [place] [address]Dr. Elba Anthony Urea nitrogen/Creatinine [Mass ratio] 18.8 mg/mg Normal [facility] Comment on above: Performed By: #### B CAD DESIGNER DRAFTER, BMP ####[facility] Ksjxanhvln431126 [address] [place], [place] [address]Dr. Elba Anthony CBC W MANUAL DIFFon 04-01-20 22 ANISOCYTOSIS 1+ Normal [facility] Comment on above: Performed By: #### C ADALGISA ####[facility] Qylymlwicn402926 [address] [place], [place] [address]Dr. Elba Anthony ATYPICAL LYMPH # 0.00 103/ul Normal [facility] Comment on above: Performed By: #### C ADALGISA ####[facility] Dswqjpgibh154126 [address] [place], [place] [address]Dr. Elba Anthony ATYPICAL LYMPH % 0 % Normal [facility] Comment on above: Performed By: #### C ADALGISA ####[facility] Cqmlrgococ956526 [address] [place], [place] [address]Dr. Elba Anthony BAND # 0.4 103/ul Critically high 0.0-0.3 [facility] Comment on above: Performed By: #### C BCVINCENT ####[facility] Vxdzevqxfk781126 [address] [place], [place] [address]Dr. Elba Anthony BAND % 4 % Normal 0-5 [facility] Comment on above: Performed By: #### C ADALGISA ####[facility] Vhsehokiku173226 [address] [place], [place] [address]Dr. Elba Raj BASOM # 0.00 103/ul Normal 0.00-0.10 [facility] Comment on above: Performed By: #### C ADALGISA ####[facility] Fzsndrrefi0130 [place] [address]Dr. Elba Anthony BASOM % 0.0 % Critically low 0.2-2.0 [facility] Comment on above: Performed By: #### C ADALGISA ####[facility] Vzyzinsiaa0875 [place] [address]Dr. Elba Anthony BLAST # 0.0 103/ul Normal [facility] Comment on above: Performed By: #### C ADALGISA ####[facility] Motvofocph9477 [place] [address]Dr. Elba Anthony BLAST % 0 % Normal [facility] Comment on above: Performed By: #### C ADALGISA ####[facility] Kcmnfcfxfu589126 [address] [place], [place] [address]Dr. Elba Anthony CORRECTED WBC Normal 4.0-11.0 [facility] Comment on above: Performed By: #### C ADALGISA ####[facility] Owdkfftqay727526 [address] [place], [place] [address]Dr. Elba Anthony EOS # 0.00 103/ul Normal 0.00-0.70 [facility] Comment on above: Performed By: #### C ADALGISA ####[facility] Pfndiecdbq823926 [address] [place], [place] [address]Dr. Elba Anthony EOS% 0.0 % Critically low 0.9-7.0 [facility] Comment on above: Performed By: #### C ADALGISA ####[facility] Rhgjqsvbhx390326 [address] [place], [place] [address]Dr. Elba Anthony HCT 31.3 % Critically low 42.0-54.0 [facility] Comment on above: Performed By: #### C ADALGISA ####[facility] Csaugszfsk588826 [address] [place], [place] [address]Dr. Elba Anthony HGB 9.2 g/dl Critically low 14.0-18.0 [facility] Comment on above: Performed By: #### C ADALGISA ####[facility] Tdlxfkqgvk326726 [address] [place], [place] [address]Dr. Elba Anthony HYPOCHROMASIA SLIGHT Normal [facility] Comment on above: Performed By: #### C ADALGISA ####[facility] Oodbrcyyts6558 [place] [id number]. Elba Anthony LYMPHM # 0.32 103/ul Critically low 1.20-3.80 [facility] Comment on above: Performed By: #### C ADALGISA ####[facility] Qfimrxqcol5955 [place] [address]Dr. Elba Anthony LYMPHM% 3.0 % Critically low 20.5-60.0 [facility] Comment on above: Performed By: #### C ADALGISA ####[facility] Fsmlzxtdyw3645 [place] [address]Dr. Elba Anthony MCH 23.2 pg Critically low 25.9-34.0 [facility] Comment on above: Performed By: #### C ADALGISA ####[facility] Mmacnlygip6790 [place] [address]Dr. Elba Anthony MCHC 29.4 g/dl Critically low 29.9-35.2 [facility] Comment on above: Performed By: #### C ADALGISA ####[facility] Glosmagnzx5194 [place] [address]Dr. Elba Anthony MCV 79.0 fL Critically low 80.0-94.0 [facility] Comment on above: Performed By: #### C ADALGISA ####[facility] Rxuwqovhsa5465 [place] [address]Dr. Elba Anthony METAMYELOCYTE # 0.1 103/ul Normal [facility] Comment on above: Performed By: #### C ADALGISA ####[facility] Hglnqftxmr2005 [place] [address]Dr. Elba Anthony METAMYELOCYTE % 1 % Normal [facility] Comment on above: Performed By: #### C ADALGISA ####[facility] Vflieiwpdm5666 [place] [address]Dr. Elba Anthony MICROCYTOSIS SLIGHT Normal [facility] Comment on above: Performed By: #### C ADALGISA ####[facility] Weuhqflawr5029 [place] [address]Dr. Elba Anthony MONOM# 0.32 103/ul Normal 0.30-0.80 [facility] Comment on above: Performed By: #### C ADALGISA ####[facility] Mhjszcgocm4337 [place] [address]Dr. Elba Anthony MONOM% 3.0 % Normal 1.7-12.0 [facility] Comment on above: Performed By: #### C ADALGISA ####[facility] Laegkfqqki1077 [place] [address]Dr. Elba Anthony MPV 9.9 fL Normal 9.5-13.5 [facility] Comment on above: Performed By: #### C ADALGISA ####[facility] Amfetshkap4374 [place] [address]Dr. Elba Anthony MYELOCYTE # 0.0 103/ul Normal [facility] Comment on above: Performed By: #### C ADALGISA ####[facility] Xkwbitgxgl0008[address] [place], [place] [address]Dr. Elba Anthony MYELOCYTE % 0 % Normal [facility] Comment on above: Performed By: #### C ADALGISA ####[facility] Mznhrbsbxk194926 [address] [place], [place] [address]Dr. Elba Anthony NRBC 0 Normal [facility] Comment on above: Performed By: #### C ADALGISA ####[facility] Gvawavieuj6016 [place] [address]Dr. Elba Anthony PLT 167 103/ul Normal 150-450 [facility] Comment on above: Performed By: #### C ADALGISA ####[facility] Cocyfecswd3591 [place] [address]Dr. Elba Anthony RBC 3.96 106/ul Critically low 4.70-6.10 [facility] Comment on above: Performed By: #### C ADALGISA ####[facility] Ozjoqqzntm0524 [place] [address]Dr. Elba Anthony RDW 19.8 % Critically high 11.0-15.0 [facility] Comment on above: Performed By: #### C BCMAN ####[facility] Osztrynmjl8563 [place] [address]Dr. Elba Anthony SEG # 9.52 103/ul Critically high 1.40-6.50 [facility] Comment on above: Performed By: #### C BCMAN ####[facility] Bqzrkqtcmn6486 [place] [id number]. Elba Anthony SEG % 89.0 % Critically high 43.0-75.0 [facility] Comment on above: Performed By: #### C BCMAN ####[facility] Fzmwllzukv2098 [place] [address]Dr. Elba Raj WBC 10.7 103/ul Normal 4.0-11.0 [facility] Comment on above: Performed By: #### C SULEIMANMAN ####[facility] Uqlchgzqdr5490 [place] [address] CT CSPINE WO CONon CT CSPINE WO CON Normal [facility] CT HEAD WO CONon 04-01-2022 CT HEAD WO CON Normal [facility] PROF 14(COMP METB)on 022 Albumin [Mass/Vol] 2.8 g/dL Critically low 3.4-5.0 [facility] Comment on above: Performed By: #### C MP ####[facility] Vkdtwcbczn712726 [address] [place], [place] [address]Dr. Elba Anthony Albumin/Globulin [Mass ratio] 0.6 {ratio} Normal [facility] Comment on above: Performed By: #### C MP ####[facility] Uxdcqjofov2521 [place] [address]Dr. Elba Anthony ALP [Catalytic activity/Vol] 81 U/L Normal 46-116 [facility] Comment on above: Performed By: #### C MP ####[facility] Btlddejmac1905 [place] [address]Dr. Elba Anthony ALT [Catalytic activity/Vol] 15 U/L Critically low 16-63 [facility] Comment on above: Performed By: #### C MP ####[facility] Fsbmkvldda8639 [place] [address]Dr. Elba Anthony Anion gap [Moles/Vol] 9.2 mmol/L Normal [facility] Comment on above: Performed By: #### C MP ####[facility] Ibqrmefltr1301 [place] [address]Dr. Elba Anthony AST [Catalytic activity/Vol] 21 U/L Normal 15-37 [facility] Comment on above: Performed By: #### C MP ####[facility] Svbpbkqlul421326 [address] [place], [place] [address]Dr. Elba Anthony Bilirubin [Mass/Vol] 1.7 mg/dL Critically high 0.2-1.0 [facility] Comment on above: Performed By: #### C MP ####[facility] Qihscqmmma037426 [address] [place], [place] [address]Dr. Elba Anthony Calcium [Mass/Vol] 9.0 mg/dL Normal 8.5-10.1 [facility] Comment on above: Performed By: #### C MP ####[facility] Xoofnkfeda614226 [address] [place], [place] [address]Dr. Elba Anthony Chloride [Moles/Vol] 99 mmol/L Normal 98-107 [facility] Comment on above: Performed By: #### C MP ####[facility] Iatfdpslia591326 [address] [place], [place] [address]Dr. Elba Anthony CO2 [Moles/Vol] 30.7 mmol/L Normal 21.0-32.0 [facility] Comment on above: Performed By: #### C MP ####[facility] Vqufwpifng820226 [address] [place], [place] [address]Dr. Elba Anthony Creatinine [Mass/Vol] 2.60 mg/dL Critically high 0.70-1.30 [facility] Comment on above: Performed By: #### C MP ####[facility] Ftipcvbkud313026 [address] [place], [place] [address]Dr. Elba Anthony EGFR-AF UGANDAN 30 mL/min/1.73m2 Critically low >=60 [facility] Comment on above: Performed By: #### C MP ####[facility] Ahqeyntmwc0273 [place] [address]Dr. Elba Anthony EGFR-NON AF UGANDAN 25 mL/min/1.73m2 Critically low >=60 [facility] Comment on above: Performed By: #### C MP ####[facility] Dpyenyqtuc8611 [place] [address]Dr. Elba Anthony Globulin (S) [Mass/Vol] 4.4 g/dL Normal [facility] Comment on above: Performed By: #### C MP ####[facility] Qynamqfcqo2136 [place] [address]Dr. Elba Anthony Glucose [Mass/Vol] 130 mg/dL Critically high 74-106 [facility] Comment on above: Performed By: #### C MP ####[facility] Bfzyrkhhem980226 [address] [place], [place] [address]Dr. Elba Anthony Potassium [Moles/Vol] 3.9 mmol/L Normal 3.5-5.1 [facility] Comment on above: Performed By: #### C MP ####[facility] Wcmnskwstn670426 [address] [place], [place] [address]Dr. Elba Anthony Protein [Mass/Vol] 7.2 g/dL Normal 6.4-8.2 [facility] Comment on above: Performed By: #### C MP ####[facility] Cvoyzvmmrx194626 [address] [place], [place] [address]Dr. Elba Anthony Sodium [Moles/Vol] 135 mmol/L Critically low 136-145 [facility] Comment on above: Performed By: #### C MP ####[facility] Mzcbrcbazp5326 [place] [address]Dr. Elba Anthony Urea nitrogen [Mass/Vol] 41.0 mg/dL Critically high 7.0-18.0 [facility] Comment on above: Performed By: #### C MP ####[facility] Angzdsuetm777426 [address] [place], [place] [address]Dr. Elba Anthony Urea nitrogen/Creatinine [Mass ratio] 15.8 mg/mg Normal [facility] Comment on above: Performed By: #### C MP ####[facility] Gjedwuyovn2428 [place] [address]Dr. Elba Anthony XR CHEST 1 Von 04-01-2022 XR CHEST 1 V Normal [facility] BNPon 01-07-2022 Natriuretic peptide B (Bld) [Mass/Vol] 9964.0 pg/mL Critically high <=900.0 [facility] Comment on above: Performed By: #### C MP, BNP ####[facility] Ozxcitbawn8171 [place] [address]Dr. Elba Raj CBC W MANUAL DIFFon 01-08-20 22 ATYPICAL LYMPH # Normal [facility] Comment on above: Performed By: #### C BCMAN ####[facility] Laysgchzxe312026 [address] [place], [place] [address]Dr. Elba Raj ATYPICAL LYMPH % Normal [facility] Comment on above: Performed By: #### C BCMAN ####[facility] Etiyymgtuv016226 [address] [place], [place] [address]Dr. Elba Raj BAND # 0.1 103/ul Normal 0.0-0.3 [facility] Comment on above: Performed By: #### C BCMAN ####[facility] Lzmdxxehsb888826 [address] [place], [place] [address]Dr. Elba Raj BAND % 1 % Normal 0-5 [facility] Comment on above: Performed By: #### C BCMAN ####[facility] Bgzvklwkht872[address] [place], [place] [address]Dr. Nereydasiobhan Raj BASOM # 0.00 103/ul Normal 0.00-0.10 [facility] Comment on above: Performed By: #### C BCMAN ####[facility] Zkmigdrqdh78232[address] [place], [place] [address]Dr. Nereydasiobhan Anthony BASOM % 0.0 % Critically low 0.2-2.0 [facility] Comment on above: Performed By: #### C BCMAN ####[facility] Pfwamefrkc449[address] [place], [place] [address]Dr. Elba Anthony BLAST # Normal [facility] Comment on above: Performed By: #### C BCMAN ####[facility] Xornrjxwlt17[address] [place], [place] [address]Dr. Elba Anthony BLAST % Normal [facility] Comment on above: Performed By: #### C BCVINCENT ####[facility] Tquwfzojah9742 [place] [phone]. Elba Anthony CORRECTED WBC Normal 4.0-11.0 [facility] Comment on above: Performed By: #### C BCVINCENT ####[facility] Mfqgyushal3376 [place] [address]Dr. Elba Anthony EOS # 0.07 103/ul Normal 0.00-0.70 [facility] Comment on above: Performed By: #### C BCVINCENT ####[facility] Khqrvqafyq2718 [place] [address]Dr. Elba Anthony EOS% 1.0 % Normal 0.9-7.0 [facility] Comment on above: Performed By: #### C ADALGISA ####[facility] Uhtigmsjye9184 [place] [address]Dr. Elba Anthony HCT 33.4 % Critically low 42.0-54.0 [facility] Comment on above: Performed By: #### C ADALGISA ####[facility] Emwgkgidlh0342 [place] [address]Dr. Elba Anthony HGB 9.8 g/dl Critically low 14.0-18.0 [facility] Comment on above: Performed By: #### C ADALGISA ####[facility] Xehlxrmdse1181 [place] [address]Dr. Elba Anthony LYMPHM # 0.44 103/ul Critically low 1.20-3.80 [facility] Comment on above: Performed By: #### C ADALGISA ####[facility] Prcpdbmkut0085 [place] [address]Dr. Elba Anthony LYMPHM% 6.0 % Critically low 20.5-60.0 [facility] Comment on above: Performed By: #### C BCVINCENT ####[facility] Yjmooqfzzg0668 [place] [address]Dr. Elba Anthony MCH 24.1 pg Critically low 25.9-34.0 [facility] Comment on above: Performed By: #### C ADALGISA ####[facility] Qofgqqmnkd5900 [place] [address]Dr. Elba Anthony MCHC 29.3 g/dl Critically low 29.9-35.2 [facility] Comment on above: Performed By: #### C ADALGISA ####[facility] Qisnktomei5990 [place] [address]Dr. Elba Anthony MCV 82.1 fL Normal 80.0-94.0 [facility] Comment on above: Performed By: #### C ADALGISA ####[facility] Rsyuliidcj0978 [place] [address]Dr. Elba Anthony METAMYELOCYTE # Normal [facility] Comment on above: Performed By: #### C ADALGISA ####[facility] Mpqsrzqdih601[address] [place], [place] [address]Dr. Elba Anthony METAMYELOCYTE % Normal [facility] Comment on above: Performed By: #### Abdoul DIANA ####[facility] Quwtkaluut168226 [address] [place], [place] [address]Dr. Elba Anthony MONOM# 0.52 103/ul Normal 0.30-0.80 [facility] Comment on above: Performed By: #### Abdoul DIANA ####[facility] Btystifnuo299[address] [place], [place] [address]Dr. Elba Anthony MONOM% 7.0 % Normal 1.7-12.0 [facility] Comment on above: Performed By: #### Abdoul DIANA ####[facility] Ckeocyqvos99[address] [place], [place] [address]Dr. Elba Anthony MPV 9.5 fL Normal 9.5-13.5 [facility] Comment on above: Performed By: #### Abdoul DIANA ####[facility] Qqxqrvbgpe7296[address] [place], [place] [address]Dr. Elba Anthony MYELOCYTE # Normal [facility] Comment on above: Performed By: #### Abdoul DIANA ####[facility] Bqyiwznrfn[address] [place], [place] [address]Dr. Elba Anthony MYELOCYTE % Normal [facility] Comment on above: Performed By: #### C ADALGISA ####[facility] Eicgztoihw9588 [place] [address]Dr. Elba Anthony NRBC Normal [facility] Comment on above: Performed By: #### C ADALGISA ####[facility] Gtchgnmjth5875 [place] [address]Dr. Elba Anthony PLT 247 103/ul Normal 150-450 [facility] Comment on above: Performed By: #### C ADALGISA ####[facility] Vhklgzsmcd6320 [place] [address]Dr. Elba Anthony RBC 4.07 106/ul Critically low 4.70-6.10 [facility] Comment on above: Performed By: #### Abdoul DIANA ####[facility] Qrdnndtntu4016 [place] [address]Dr. Elba Anthony RDW 18.7 % Critically high 11.0-15.0 [facility] Comment on above: Performed By: #### Abdoul DIANA ####[facility] Pdmyqxtxxp0400 [place] [address]Dr. Elba Anthony SEG # 6.29 103/ul Normal 1.40-6.50 [facility] Comment on above: Performed By: #### Abdoul DIANA ####[facility] Hhdwjbbudx4184 [place] [address]Dr. Elba Anthony SEG % 85.0 % Critically high 43.0-75.0 [facility] Comment on above: Performed By: #### Abdoul DIANA ####[facility] Vykhjaiiuh5478 [place] [address]Dr. Elba Anthony WBC 7.4 103/ul Normal 4.0-11.0 [facility] Comment on above: Performed By: #### Abdoul DIANA ####[facility] Arjevubhyb[address] [place], [place] [address]Dr. Elba Anthony ER URINE PROFILEon 2 Bilirubin Ql (U) Negative Normal NEGATIVE [facility] Comment on above: Performed By: #### E RUR ####[facility] Yvawfuqepb6246 [place] [phone]. Elba Anthony Clarity (U) CLEAR Normal CLEAR [facility] Comment on above: Performed By: #### E RUR ####[facility] Faklehpupc8[address] [place], [place] [address]Dr. Elba Anthony Color (U) LT. YELLOW Normal YELLOW [facility] Comment on above: Performed By: #### E RUR ####[facility] Rcvibkvbrq029[address] [place], [place] [address]Dr. Elba Anthony ERUAHD A micrscopic examina tion will be performed if indicated. Normal [facility] Comment on above: Performed By: #### E RUR ####[facility] Tqzateongq8504[address] [place], [place] [address]Dr. Elba Anthony Glucose Ql (U) Negative Normal NEGATIVE [facility] Comment on above: Performed By: #### E RUR ####[facility] Ikztnmlwdh468626 [address] [place], [place] [address]Dr. Elba Anthony Hemoglobin Ql (U) Negative Normal NEGATIVE [facility] Comment on above: Performed By: #### E RUR ####[facility] Frygpebtxw371426 [address] [place], [place] [address]Dr. Elba Anthony Ketones Ql (U) Negative Normal NEGATIVE [facility] Comment on above: Performed By: #### E RUR ####[facility] Dqxpyircah679726 [address] [place], [place] [address]Dr. Elba Anthoyn LEUKOCYTES Negative Normal NEGATIVE [facility] Comment on above: Performed By: #### E RUR ####[facility] Luchfhmwjv528026 [address] [place], [place] [address]Dr. Elba Anthony Nitrite Ql (U) Negative Normal NEGATIVE [facility] Comment on above: Performed By: #### E RUR ####[facility] Evqggbxesd468626 [address] [place], [place] [address]Dr. Elba Anthony pH (U) 5.0 [pH] Normal 5-9 [facility] Comment on above: Performed By: #### E RUR ####[facility] Vsvkbimyih737426 [address] [place], [place] [address]Dr. Elba Anthony SPEC GRAVITY <=1.005 Abnormal 1.005-<=1.02 5 [facility] Comment on above: Performed By: #### E RUR ####[facility] Rptzhuwvbb184926 [address] [place], [place] [address]Dr. Elba Anthony UA PROTEIN Negative Normal NEGATIVE/ TRACE [facility] Comment on above: Performed By: #### E RUR ####[facility] Fbjszexngw626726 [address] [place], [place] [address]Dr. Elba Anthony UR MICRO IND NOT INDICATED Normal [facility] Comment on above: Performed By: #### E RUR ####[facility] Afahozfugw912626 [address] [place], [place] [address]Dr. Elba Anthony Urobilinogen Qn (U) 0.2 {Caden'U}/dL Normal 0.2 - 1. 0 [facility] Comment on above: Performed By: #### E RUR ####[facility] Xnctesyvtl445126 [address] [place], [place] [address]Dr. Elba Anthony PROF 14(COMP METB)on 022 Albumin [Mass/Vol] 2.9 g/dL Critically low 3.4-5.0 [facility] Comment on above: Performed By: #### C MP, BNP ####[facility] Vkbibvhphl889426 [address] [place], [place] [address]Dr. Elba Anthony Albumin/Globulin [Mass ratio] 0.6 {ratio} Normal [facility] Comment on above: Performed By: #### C MP, BNP ####[facility] Zitxjvwxft875526 [address] [place], [place] [address]Dr. Elba Anthony ALP [Catalytic activity/Vol] 105 U/L Normal 46-116 [facility] Comment on above: Performed By: #### C MP, BNP ####[facility] Zrdzrfckmo666926 [address] [place], [place] [address]Dr. Elba Anthony ALT [Catalytic activity/Vol] 27 U/L Normal 16-63 [facility] Comment on above: Performed By: #### C MP, BNP ####[facility] Jnzkirpcrf450926 [address] [place], [place] [address]Dr. Elba Anthony Anion gap [Moles/Vol] 10.7 mmol/L Normal [facility] Comment on above: Performed By: #### C MP, BNP ####[facility] Upejqplirb498626 [address] [place], [place] [address]Dr. Elba Anthony AST [Catalytic activity/Vol] 20 U/L Normal 15-37 [facility] Comment on above: Performed By: #### C MP, BNP ####[facility] Hclmpdzihv624926 [address] [place], [place] [address]Dr. Elba Anthony Bilirubin [Mass/Vol] 1.1 mg/dL Critically high 0.2-1.0 [facility] Comment on above: Performed By: #### C MP, BNP ####[facility] Qxfnlqpdlg443026 [address] [place], [place] [address]Dr. Elba Anthony Calcium [Mass/Vol] 8.2 mg/dL Critically low 8.5-10.1 [facility] Comment on above: Performed By: #### C MP, BNP ####[facility] Potbeejevg096026 [address] [place], [place] [address]Dr. Elba Anthony Chloride [Moles/Vol] 99 mmol/L Normal 98-107 [facility] Comment on above: Performed By: #### C MP, BNP ####[facility] Norfouewzk997526 [address] [place], [place] [address]Dr. Elba Anthony CO2 [Moles/Vol] 28.6 mmol/L Normal 21.0-32.0 [facility] Comment on above: Performed By: #### C MP, BNP ####[facility] Bedpbfyfom880326 [address] [place], [place] [address]Dr. Nereydasiobhan Raj Creatinine [Mass/Vol] 2.06 mg/dL Critically high 0.70-1.30 [facility] Comment on above: Performed By: #### C MP, BNP ####[facility] Psflawbqqr017226 [address] [place], [place] [address]Dr. Elba Raj EGFR-AF UGANDAN 39 mL/min/1.73m2 Critically low >=60 [facility] Comment on above: Performed By: #### C MP, BNP ####[facility] Xhlisyqucr174126 [address] [place], [place] [address]Dr. Elba Anthony EGFR-NON AF UGANDAN 32 mL/min/1.73m2 Critically low >=60 [facility] Comment on above: Performed By: #### C MP, BNP ####[facility] Kqfsgrqzrz23[address] [place] [address]Dr. Elba Anthony Globulin (S) [Mass/Vol] 4.6 g/dL Normal [facility] Comment on above: Performed By: #### C MP, BNP ####[facility] Gamhzasjqz7953 [place] [address]Dr. Elba Anthony Glucose [Mass/Vol] 113 mg/dL Critically high 74-106 [facility] Comment on above: Performed By: #### C MP, BNP ####[facility] Imahtizyip5264 [place] [address]Dr. Elba Anthony Potassium [Moles/Vol] 4.3 mmol/L Normal 3.5-5.1 [facility] Comment on above: Performed By: #### C MP, BNP ####[facility] Llalzqwlpe2385 [place] [address]Dr. Elba Anthony Protein [Mass/Vol] 7.5 g/dL Normal 6.1-8.2 [facility] Comment on above: Performed By: #### C MP, BNP ####[facility] Zdfhxxgjpd9637 [place] [address]Dr. Elba Anthony Sodium [Moles/Vol] 134 mmol/L Critically low 136-145 [facility] Comment on above: Performed By: #### C MP, BNP ####[facility] Ndcvfrdtvj7895 [place] [address]Dr. Elba Anthony Urea nitrogen [Mass/Vol] 48.0 mg/dL Critically high 7.0-18.0 [facility] Comment on above: Performed By: #### C MP, BNP ####[facility] Lxneiuxeez6126 [place] [address]Dr. Elba Anthony Urea nitrogen/Creatinine [Mass ratio] 23.3 mg/mg Normal [facility] Comment on above: Performed By: #### C MP, BNP ####[facility] Fadhnmibcv6799 [place] [id number]. Elba Anthony US ARLIN DOP LEG LTon 01-08-20 22 US ARLIN DOP LEG LT Normal [facility] XR CHEST 1 Von 01-07-2022 XR CHEST 1 V Normal [facility] CBC AUTO DIFFon 12-17-2021 BASO # 0.0 103/ul Normal 0.0-0.1 [facility] Comment on above: Performed By: #### C BC ####[facility] Yozbetoxoz3550 [place] [id number]. Nereydasiobhan Anthony Basophils/100 WBC (Bld) 0.1 % Critically low 0.2-2.0 [facility] Comment on above: Performed By: #### C BC ####[facility] Ptvdvzrqpl5031 [place] [address]Dr. Nereydasiobhan Anthony EO # 0.1 103/ul Normal 0.0-0.7 [facility] Comment on above: Performed By: #### C BC ####[facility] Wlqlxpxnxo8061 [place] [address]Dr. Nereydasiobhan Anthony Eosinophils/100 WBC (Bld) 1.2 % Normal 0.9-7.0 [facility] Comment on above: Performed By: #### C BC ####[facility] Zdqwgoerrt2205 [place] [address]Dr. Elba Raj Erythrocyte distribution width (RBC) [Ratio] 18.6 % Critically high 11.0-15.0 [facility] Comment on above: Performed By: #### C BC ####[facility] Oyppcoyuhx9998 [place] [address]Dr. Nereydasiobhan Anthony Hematocrit (Bld) [Volume fraction] 29.8 % Critically low 42.0-54.0 [facility] Comment on above: Performed By: #### C BC ####[facility] Gvupqsqgjq2634 [place] [address]Dr. Elba Anthony Hemoglobin (Bld) [Mass/Vol] 9.0 g/dL Critically low 14.0-18.0 [facility] Comment on above: Performed By: #### C BC ####[facility] Lwaqetliay2340 [place] [id number]. Elba Anthony IG # 0.05 10e3/ul Critically high 0.00-0.03 [facility] Comment on above: Performed By: #### C BC ####[facility] Ssfhvwrfzb8379 [place] [address]Dr. Elba Anthony IG % 0.6 % Critically high 0.0-0.5 [facility] Comment on above: Performed By: #### C BC ####[facility] Nuanokleqw2831 [place] [address]Dr. Elba Anthony LYMPH # 0.4 103/ul Critically low 1.2-3.8 [facility] Comment on above: Performed By: #### C BC ####[facility] Arwfbrsmjr0963 [place] [address]Dr. Elba Anthony Lymphocytes/100 WBC (Bld) 4.0 % Critically low 20.5-60.0 [facility] Comment on above: Performed By: #### C BC ####[facility] Tgdqydozrr4930 [place] [address]Dr. Nereydasiobhan Anthony MANUAL DIFF REQ NO Normal [facility] Comment on above: Performed By: #### C BC ####[facility] Cxaermygnf8481 [place] [address]Dr. Elba Raj MCH (RBC) [Entitic mass] 25.2 pg Critically low 25.9-34.0 [facility] Comment on above: Performed By: #### C BC ####[facility] Xwysrsacey640426 [address] [place], [place] [address]Dr. Elba Anthony MCHC (RBC) [Mass/Vol] 30.2 g/dL Normal 29.9-35.2 [facility] Comment on above: Performed By: #### C BC ####[facility] Bycqvwpxwn4036 [place] [address]Dr. Elba Raj MCV (RBC) [Entitic vol] 83.5 fL Normal 80.0-94.0 [facility] Comment on above: Performed By: #### C BC ####[facility] Tawjjurinf3697 [place] [address]Dr. Elba Anthony MONO # 0.9 103/ul Critically high 0.3-0.8 [facility] Comment on above: Performed By: #### C BC ####[facility] Gujvtznqca2553 [place] [address]Dr. Elba Anthony Monocytes/100 WBC (Bld) 9.7 % Normal 1.7-12.0 [facility] Comment on above: Performed By: #### C BC ####[facility] Nephleeowj5877 [place] [address]Dr. Elba Anthony NEUT # 7.6 103/ul Critically high 1.4-6.5 [facility] Comment on above: Performed By: #### C BC ####[facility] Vppzttrpyb3222 [place] [address]Dr. Elba Anthony Neutrophils/100 WBC (Bld) 84.4 % Critically high 43.0-75.0 [facility] Comment on above: Performed By: #### C BC ####[facility] Xrzmtycrqn3859 [place] [address]Dr. Elba Anthony Platelet mean volume (Bld) [Entitic vol] 10.0 fL Normal 9.5-13.5 [facility] Comment on above: Performed By: #### C BC ####[facility] Uomvzeyarm8884 [place] [address]Dr. Elba Anthony PLT 154 103/ul Normal 150-450 [facility] Comment on above: Performed By: #### C BC ####[facility] Jpsjrmxiwg69[address] [place], [place] [address]Dr. Elba Anthony RBC 3.57 106/ul Critically low 4.70-6.10 [facility] Comment on above: Performed By: #### C BC ####[facility] Quxbtadnod4230 [place] [phone]. Elba Anthony WBC 9.0 103/ul Normal 4.0-11.0 [facility] Comment on above: Performed By: #### C BC ####[facility] Bslhrsdlzc7573 [place] [address]Dr. Elba Anthony PROF 14(COMP METB)on 022 Albumin [Mass/Vol] 2.3 g/dL Critically low 3.4-5.0 [facility] Comment on above: Performed By: #### C MP ####[facility] Wwxheokkqc8525 [place] [address]Dr. Elba Anthony Albumin/Globulin [Mass ratio] 0.6 {ratio} Normal [facility] Comment on above: Performed By: #### C MP ####[facility] Crprfsyeqr152326 [address] [place], [place] [address]Dr. Elba Anthony ALP [Catalytic activity/Vol] 75 U/L Normal 46-116 [facility] Comment on above: Performed By: #### C MP ####[facility] Wmqivrhaqf184826 [address] [place], [place] [address]Dr. Elba Anthony ALT [Catalytic activity/Vol] 30 U/L Normal 16-63 [facility] Comment on above: Performed By: #### C MP ####[facility] Eyvkayqabi516126 [address] [place], [place] [address]Dr. Elba Anthony Anion gap [Moles/Vol] 11.6 mmol/L Normal [facility] Comment on above: Performed By: #### C MP ####[facility] Muxgppfrpa865026 [address] [place], [place] [address]Dr. Elba Anthony AST [Catalytic activity/Vol] 26 U/L Normal 15-37 [facility] Comment on above: Performed By: #### C MP ####[facility] Rwrlcuilod543226 [address] [place], [place] [address]Dr. Elba Anthony Bilirubin [Mass/Vol] 0.9 mg/dL Normal 0.2-1.3 [facility] Comment on above: Performed By: #### C MP ####[facility] Qxjdesuptg520026 [address] [place], [place] [address]Dr. Elba Anthony Calcium [Mass/Vol] 8.1 mg/dL Critically low 8.5-10.1 [facility] Comment on above: Performed By: #### C MP ####[facility] Eajzzyfxbv2253 [place] [phone]. Elba Anthony Chloride [Moles/Vol] 101 mmol/L Normal 98-107 [facility] Comment on above: Performed By: #### C MP ####[facility] Iyllskahtm4427 [place] [address]Dr. Elba Anthony CO2 [Moles/Vol] 26.2 mmol/L Normal 22.0-30.0 [facility] Comment on above: Performed By: #### C MP ####[facility] Jbdsrbbgth1150 [place] [address]Dr. Elba Anthony Creatinine [Mass/Vol] 2.26 mg/dL Critically high 0.66-1.25 [facility] Comment on above: Performed By: #### C MP ####[facility] Peeaexqldf698726 [address] [place], [place] [address]Dr. Elba Raj EGFR-AF UGANDAN 35 mL/min/1.73m2 Critically low >=60 [facility] Comment on above: Performed By: #### C MP ####[facility] Plijjwkzqq309126 [address] [place], [place] [address]Dr. Elba Raj EGFR-NON AF UGANDAN 29 mL/min/1.73m2 Critically low >=60 [facility] Comment on above: Performed By: #### C MP ####[facility] Pfimlttyxx917126 [address] [place], [place] [address]Dr. Elba Raj Globulin (S) [Mass/Vol] 4.1 g/dL Normal [facility] Comment on above: Performed By: #### C MP ####[facility] Djjgcovjxh1465 [place] [address]Dr. Elba Raj Glucose [Mass/Vol] 110 mg/dL Critically high 74-106 [facility] Comment on above: Performed By: #### C MP ####[facility] Qfozyiywvr557626 [address] [place], [place] [address]Dr. Elba Raj Potassium [Moles/Vol] 3.8 mmol/L Normal 3.4-5.0 [facility] Comment on above: Performed By: #### C MP ####[facility] Cnnrlecvpf9242 [place] [phone]. Elba Anthony Protein [Mass/Vol] 6.4 g/dL Normal 6.1-8.2 [facility] Comment on above: Performed By: #### C MP ####[facility] Npdvegdiqj4213 [place] [phone]. Elba Anthony Sodium [Moles/Vol] 135 mmol/L Critically low 137-145 [facility] Comment on above: Performed By: #### C MP ####[facility] Kwgzreouyl730726 [address] [place], [place] [address]Dr. Elba Anthony Urea nitrogen [Mass/Vol] 49.0 mg/dL Critically high 7.0-18.0 [facility] Comment on above: Performed By: #### C MP ####[facility] Wdyhetxivx460526 [address] [place], [place] [address]Dr. Elba Anthony Urea nitrogen/Creatinine [Mass ratio] 21.7 mg/mg Normal [facility] Comment on above: Performed By: #### C MP ####[facility] Kbcndrpref704426 [address] [place], [place] [address]Dr. Elba Anthony BLOOD CULTURE ID/SENSon 04 Aerobe ID + Suscept Final report Abnormal [facility] Comment on above: Performed By: #### C XPOSBL ####[facility] Qdobwgcanx0585[address] [place], [place] [address]Dr. Elba Anthony Antimicrobial Susceptibility Comment Normal [facility] Comment on above: Result Comment: S = Susceptible; I = Intermediate; R = Resistant P = Positive; N = Negative MICS are expressed in micrograms per mL Antibiotic RSLT#1 RSLT#2 RSLT#3 RSLT#4Amikacin SCefepime SCeftazidime SCiprofloxacin SGentamicin SImipenem SLevofloxacin SMeropenem SPiperacillin STicarcillin STobramycin S Performed By: #### C XPOSBL ####[facility] Xtykwtyvfw914526 [address] [place], [place] [address]Dr. Elba Anthony Result 1 Comment Abnormal [facility] Comment on above: Result Comment: Pseu domonas aeruginosaReceived aerobic bottle only. Performed By: #### C XPOSBL ####[facility] Bpbesnfqst5892 [place] [address]Dr. Elba Anthony Result Comment: Pseu domonas aeruginosaReceived anaerobic bottle only. CBC AUTO DIFFon 12-16-2021 BASO # 0.0 103/ul Normal 0.0-0.1 [facility] Comment on above: Performed By: #### C BC ####[facility] Tlelgokrze211[address] [place], [place] [address]Dr. Nereydasiobhan Anthony Basophils/100 WBC (Bld) 0.3 % Normal 0.2-2.0 [facility] Comment on above: Performed By: #### C BC ####[facility] Rufhxsgxin3919[address] [place], [place] [address]Dr. Nereydasiobhan Anthony EO # 0.1 103/ul Normal 0.0-0.7 [facility] Comment on above: Performed By: #### C BC ####[facility] Hjtomchcah852426 [address] [place], [place] [address]Dr. Nereydasiobhan Anthony Eosinophils/100 WBC (Bld) 1.7 % Normal 0.9-7.0 [facility] Comment on above: Performed By: #### C BC ####[facility] Mlviyhxeyu988226 [address] [place], [place] [address]Dr. Elba Raj Erythrocyte distribution width (RBC) [Ratio] 18.8 % Critically high 11.0-15.0 [facility] Comment on above: Performed By: #### C BC ####[facility] Yvtjatfqcd936726 [address] [place], [place] [address]Dr. Elba Anthony Hematocrit (Bld) [Volume fraction] 28.8 % Critically low 42.0-54.0 [facility] Comment on above: Performed By: #### C BC ####[facility] Wpbiymhkhz443626 [address] [place], [place] [address]Dr. Elba Anthony Hemoglobin (Bld) [Mass/Vol] 8.6 g/dL Critically low 14.0-18.0 [facility] Comment on above: Performed By: #### C BC ####[facility] Tgoguwbepg8661 [place] [address]Dr. Nereydasiobhan Raj IG # 0.05 10e3/ul Critically high 0.00-0.03 [facility] Comment on above: Performed By: #### C BC ####[facility] Gwhtoszfbj8797 [place] [address]Dr. Nereydasiobhan Anthony IG % 0.7 % Critically high 0.0-0.5 [facility] Comment on above: Performed By: #### C BC ####[facility] Iuzrljhcqi628926 [address] [place], [place] [address]Dr. Elba Anthony LYMPH # 0.4 103/ul Critically low 1.2-3.8 [facility] Comment on above: Performed By: #### C BC ####[facility] Ylwmqcjkou660426 [address] [place], [place] [address]Dr. Elba Anthony Lymphocytes/100 WBC (Bld) 5.4 % Critically low 20.5-60.0 [facility] Comment on above: Performed By: #### C BC ####[facility] Qasqnavhck891726 [address] [place], [place] [address]Dr. Nereydasiobhan Anthony MANUAL DIFF REQ NO Normal [facility] Comment on above: Performed By: #### C BC ####[facility] Vclmtecloz0988[address] [place], [place] [address]DrLatoya Elba Raj MCH (RBC) [Entitic mass] 25.0 pg Critically low 25.9-34.0 [facility] Comment on above: Performed By: #### C BC ####[facility] Kcqljkjfpd411326 [address] [place], [place] [address]DrLatoya Elba Raj MCHC (RBC) [Mass/Vol] 29.9 g/dL Normal 29.9-35.2 [facility] Comment on above: Performed By: #### C BC ####[facility] Vcakjjquiw984[address] [place], [place] [address]DrLatoya Elba Raj MCV (RBC) [Entitic vol] 83.7 fL Normal 80.0-94.0 [facility] Comment on above: Performed By: #### C BC ####[facility] Qrovucysqs7813[address] [place], [place] [address]Dr. Elba Anthony MONO # 0.7 103/ul Normal 0.3-0.8 [facility] Comment on above: Performed By: #### C BC ####[facility] Lxbucmottt8465 [place] [address]Dr. Elba Anthony Monocytes/100 WBC (Bld) 10.2 % Normal 1.7-12.0 [facility] Comment on above: Performed By: #### C BC ####[facility] Yifvzewsvr3441 [place] [address]Dr. Elba Anthony NEUT # 5.9 103/ul Normal 1.4-6.5 [facility] Comment on above: Performed By: #### C BC ####[facility] Wkfqzpslcu2408 [place] [address]Dr. Elba Anthony Neutrophils/100 WBC (Bld) 81.7 % Critically high 43.0-75.0 [facility] Comment on above: Performed By: #### C BC ####[facility] Vhhykgcltb346626 [address] [place], [place] [address]Dr. Elba Anthony Platelet mean volume (Bld) [Entitic vol] 10.8 fL Normal 9.5-13.5 [facility] Comment on above: Performed By: #### C BC ####[facility] Tazcvbnatw5028 [place] [address]Dr. Elba Raj PLT 150 103/ul Normal 150-450 [facility] Comment on above: Performed By: #### C BC ####[facility] Khknefrdlz012926 [address] [place], [place] [address]Dr. Elba Anthony RBC 3.44 106/ul Critically low 4.70-6.10 [facility] Comment on above: Performed By: #### C BC ####[facility] Ymnjgziicl8623 [place] [address]Dr. Elba Raj WBC 7.2 103/ul Normal 4.0-11.0 [facility] Comment on above: Performed By: #### C BC ####[facility] Gofsxxgexn0519 [place] [address]Dr. Elba Anthony PROF 14(COMP METB)on 022 Albumin [Mass/Vol] 2.3 g/dL Critically low 3.4-5.0 [facility] Comment on above: Performed By: #### C MP ####[facility] Diicujhkan399026 [address] [place], [place] [address]DrLatoya Anthony Albumin/Globulin [Mass ratio] 0.6 {ratio} Normal [facility] Comment on above: Performed By: #### C MP ####[facility] Cwcvxqshkj219926 [address] [place], [place] [address]Dr. Elba Anthony ALP [Catalytic activity/Vol] 77 U/L Normal 46-116 [facility] Comment on above: Performed By: #### C MP ####[facility] Hrkufysnwk814926 [address] [place], [place] [address]DrLatoya Anthony ALT [Catalytic activity/Vol] 26 U/L Normal 16-63 [facility] Comment on above: Performed By: #### C MP ####[facility] Iemrxkqkgn3530[address] [place], [place] [address]DrLatoya Anthony Anion gap [Moles/Vol] 12.3 mmol/L Normal [facility] Comment on above: Performed By: #### C MP ####[facility] Yxaxunjmwt297726 [address] [place], [place] [address]Dr. Elba Anthony AST [Catalytic activity/Vol] 23 U/L Normal 15-37 [facility] Comment on above: Performed By: #### C MP ####[facility] Takglnkvnb9377[address] [place], [place] [address]DrLatoya Anthony Bilirubin [Mass/Vol] 0.8 mg/dL Normal 0.2-1.3 [facility] Comment on above: Performed By: #### C MP ####[facility] Ohecpwkemx220[address] [place], [place] [address]DrLatoya Anthony Calcium [Mass/Vol] 8.0 mg/dL Critically low 8.5-10.1 [facility] Comment on above: Performed By: #### C MP ####[facility] Ubyubnavpw9124[address] [place], [place] [address]DrLatoya Anthony Chloride [Moles/Vol] 101 mmol/L Normal 98-107 [facility] Comment on above: Performed By: #### C MP ####[facility] Hditucorff9859[address] [place], [place] [address]Dr. Elba Anthony CO2 [Moles/Vol] 25.8 mmol/L Normal 22.0-30.0 [facility] Comment on above: Performed By: #### C MP ####[facility] Lhjcfkhpia9026[address] [place], [place] [address]Dr. Elba Anthony Creatinine [Mass/Vol] 2.72 mg/dL Critically high 0.66-1.25 [facility] Comment on above: Performed By: #### C MP ####[facility] Kwyagpjygh7[address] [place], [place] [address]Dr. Elba Anthony EGFR-AF UGANDAN 28 mL/min/1.73m2 Critically low >=60 [facility] Comment on above: Performed By: #### C MP ####[facility] Pusfjixtfu4518[address] [place], [place] [address]Dr. Elba Anthony EGFR-NON AF UGANDAN 23 mL/min/1.73m2 Critically low >=60 [facility] Comment on above: Performed By: #### C MP ####[facility] Svtvzrzyzk234[address] [place], [place] [address]Dr. Elba Anthony Globulin (S) [Mass/Vol] 4.1 g/dL Normal [facility] Comment on above: Performed By: #### C MP ####[facility] Pnvhvfpmmi[address] [place], [place] [address]Dr. Elba Anthony Glucose [Mass/Vol] 130 mg/dL Critically high 74-106 T [facility] Comment on above: Performed By: #### C MP ####[facility] Zajhlguhkz[address] [place], [place] [address]Dr. Elba Anthony Potassium [Moles/Vol] 4.1 mmol/L Normal 3.4-5.0 [facility] Comment on above: Performed By: #### C MP ####[facility] Rvukmtgwvz60[address] [place], [place] [address]Dr. Elba Anthony Protein [Mass/Vol] 6.4 g/dL Normal 6.1-8.2 [facility] Comment on above: Performed By: #### C MP ####[facility] Qpxplmflce7980[address] [place], [place] [address]Dr. Elba Anthony Sodium [Moles/Vol] 135 mmol/L Critically low 137-145 Th [facility] Comment on above: Performed By: #### C MP ####[facility] Zyfnbwqsat1390[address] [place], [place] [address]Dr. Elba Raj Urea nitrogen [Mass/Vol] 60.0 mg/dL Critically high 7.0-18.0 [facility] Comment on above: Performed By: #### C MP ####[facility] Uuiepnajvr729[address] [place], [place] [address]Dr. Nereydasiobhan Anthony Urea nitrogen/Creatinine [Mass ratio] 22.1 mg/mg Normal [facility] Comment on above: Performed By: #### C MP ####[facility] Wwlhoengmx400726 [address] [place], [place] [address]Dr. Elba Raj BNPon 12-15-2021 Natriuretic peptide B (Bld) [Mass/Vol] 96156.0 pg/mL Critically high <=900.0 [facility] Comment on above: Result Comment: Test Repeated. Critical Value Verified Performed By: #### C MP, BNP, CRP ####[facility] Xmsgggrliu3314[address] [place], [place] [address]Dr. Elba Raj CBC AUTO DIFFon 12-15-2021 BASO # 0.0 103/ul Normal 0.0-0.1 [facility] Comment on above: Performed By: #### C BC ####[facility] Xnohtfgvmb3029[address] [place], [place] [address]Dr. Elba Raj Basophils/100 WBC (Bld) 0.2 % Normal 0.2-2.0 [facility] Comment on above: Performed By: #### C BC ####[facility] Evbolslklb407926 [address] [place], [place] [address]Dr. Elba Anthony EO # 0.1 103/ul Normal 0.0-0.7 [facility] Comment on above: Performed By: #### C BC ####[facility] Uvruvhahhh6444 [place] [address]Dr. Elba Anthony Eosinophils/100 WBC (Bld) 1.3 % Normal 0.9-7.0 [facility] Comment on above: Performed By: #### C BC ####[facility] Cvsgvdqxrq1142 [place] [address]Dr. Elba Anthony Erythrocyte distribution width (RBC) [Ratio] 19.0 % Critically high 11.0-15.0 [facility] Comment on above: Performed By: #### C BC ####[facility] Bkawhhrobc0258 [place] [address]Dr. Elba Anthony Hematocrit (Bld) [Volume fraction] 28.7 % Critically low 42.0-54.0 [facility] Comment on above: Performed By: #### C BC ####[facility] Xpkukdeame071026 [address] [place], [place] [address]Dr. Elba Anthony Hemoglobin (Bld) [Mass/Vol] 8.7 g/dL Critically low 14.0-18.0 [facility] Comment on above: Performed By: #### C BC ####[facility] Mbkitmjulm046026 [address] [place], [place] [address]Dr. Elba Anthony IG # 0.04 10e3/ul Critically high 0.00-0.03 [facility] Comment on above: Performed By: #### C BC ####[facility] Deowvneecc5904[address] [place], [place] [address]Dr. Elba Anthony IG % 0.5 % Normal 0.0-0.5 [facility] Comment on above: Performed By: #### C BC ####[facility] Uyxjmfcloz654526 [address] [place], [place] [address]Dr. Elba Anthony LYMPH # 0.4 103/ul Critically low 1.2-3.8 [facility] Comment on above: Performed By: #### C BC ####[facility] Zwxvkxzudf743826 [address] [place], [place] [address]Dr. Elba Anthony Lymphocytes/100 WBC (Bld) 4.2 % Critically low 20.5-60.0 [facility] Comment on above: Performed By: #### C BC ####[facility] Gjtlhoxkgb4143 [place] [address]DrLatoya Anthony MANUAL DIFF REQ NO Normal [facility] Comment on above: Performed By: #### C BC ####[facility] Hzgjtakedr7828 [place] [address]Dr. Elba Anthony MCH (RBC) [Entitic mass] 25.5 pg Critically low 25.9-34.0 [facility] Comment on above: Performed By: #### C BC ####[facility] Xnzedumqbi1695 [place] [address]Dr. Elba Anthony MCHC (RBC) [Mass/Vol] 30.3 g/dL Normal 29.9-35.2 [facility] Comment on above: Performed By: #### C BC ####[facility] Nudgiokhdo3845[address] [place], [place] [address]DrLatoya Anthony MCV (RBC) [Entitic vol] 84.2 fL Normal 80.0-94.0 [facility] Comment on above: Performed By: #### C BC ####[facility] Rydrzwjnxb0536[address] [place], [place] [address]DrLatoya Anthony MONO # 0.6 103/ul Normal 0.3-0.8 [facility] Comment on above: Performed By: #### C BC ####[facility] Bouiwaxgmi1739[address] [place], [place] [address]DrLatoya Anthony Monocytes/100 WBC (Bld) 7.5 % Normal 1.7-12.0 [facility] Comment on above: Performed By: #### C BC ####[facility] Sqvswkrmur1250[address] [place], [place] [address]DrLatoya Anthony NEUT # 7.2 103/ul Critically high 1.4-6.5 [facility] Comment on above: Performed By: #### C BC ####[facility] Frodmnhahd524[address] [place], [place] [address]DrLatoya Anthony Neutrophils/100 WBC (Bld) 86.3 % Critically high 43.0-75.0 [facility] Comment on above: Performed By: #### C BC ####[facility] Avbryhxeqv9866 [place] [address]Dr. Elba Raj Platelet mean volume (Bld) [Entitic vol] 10.7 fL Normal 9.5-13.5 [facility] Comment on above: Performed By: #### C BC ####[facility] Ifdvuzqcri9380 [place] [address]Dr. Elba Raj PLT 132 103/ul Critically low 150-450 [facility] Comment on above: Performed By: #### C BC ####[facility] Mweoqzbgaj9031 [place] [address]Dr. Nereydasiobhan Raj RBC 3.41 106/ul Critically low 4.70-6.10 [facility] Comment on above: Performed By: #### C BC ####[facility] Xjlaoswkbp8246 [place] [address]Dr. Elba Anthony WBC 8.4 103/ul Normal 4.0-11.0 [facility] Comment on above: Performed By: #### C BC ####[facility] Cepdlahxdv9741 [place] [address]DrLatoya Anthony CRPon 12-15-2021 CRP [Mass/Vol] mg/L Critically high <=1.0 [facility] Comment on above: Performed By: #### C MP, BNP, CRP ####[facility] Renawodrca6683 [place] [address]DrLatoya Anthony PROF 14(COMP METB)on 022 Albumin [Mass/Vol] 2.4 g/dL Critically low 3.4-5.0 [facility] Comment on above: Performed By: #### C MP, BNP, CRP ####[facility] Euqulqjhxg0237 [place] [address]Dr. Elba Anthony Albumin/Globulin [Mass ratio] 0.6 {ratio} Normal [facility] Comment on above: Performed By: #### C MP, BNP, CRP ####[facility] Ctsosylmpy8542 [place] [address]Dr. Elba Anthony ALP [Catalytic activity/Vol] 75 U/L Normal 46-116 [facility] Comment on above: Performed By: #### C MP, BNP, CRP ####[facility] Uanzezxepz4136 [place] [address]Dr. Elba Anthony ALT [Catalytic activity/Vol] 22 U/L Normal 16-63 [facility] Comment on above: Performed By: #### C MP, BNP, CRP ####[facility] Ezkywcuqly2632 [place] [address]Dr. Elba Anthony Anion gap [Moles/Vol] 13.8 mmol/L Normal [facility] Comment on above: Performed By: #### C MP, BNP, CRP ####[facility] Vwdhhuncpn3078 [place] [address]Dr. Elba Anthony AST [Catalytic activity/Vol] 17 U/L Normal 15-37 [facility] Comment on above: Performed By: #### C MP, BNP, CRP ####[facility] Szlxzpbvrf4319 [place] [address]Dr. Elba Anthony Bilirubin [Mass/Vol] 0.8 mg/dL Normal 0.2-1.3 [facility] Comment on above: Performed By: #### C MP, BNP, CRP ####[facility] Zbojuukxka7288 [place] [address]Dr. Elba Anthony Calcium [Mass/Vol] 7.7 mg/dL Critically low 8.5-10.1 [facility] Comment on above: Performed By: #### C MP, BNP, CRP ####[facility] Zxvsiohwwm9280 [place] [address]Dr. Elba Anthony Chloride [Moles/Vol] 98 mmol/L Normal 98-107 [facility] Comment on above: Performed By: #### C MP, BNP, CRP ####[facility] Bborkuyrtv5152 [place] [address]Dr. Elba Anthony CO2 [Moles/Vol] 24.5 mmol/L Normal 22.0-30.0 [facility] Comment on above: Performed By: #### C MP, BNP, CRP ####[facility] Itcuziynvk532426 [address] [place], [place] [address]Dr. Elba Anthony Creatinine [Mass/Vol] 3.10 mg/dL Critically high 0.66-1.25 [facility] Comment on above: Performed By: #### C MP, BNP, CRP ####[facility] Vygayqwpff187126 [address] [place], [place] [address]Dr. Elba Anthony EGFR-AF UGANDAN 24 mL/min/1.73m2 Critically low >=60 [facility] Comment on above: Performed By: #### C MP, BNP, CRP ####[facility] Wtmifncrjx462026 [address] [place], [place] [address]Dr. Elba Anthony EGFR-NON AF UGANDAN 20 mL/min/1.73m2 Critically low >=60 [facility] Comment on above: Performed By: #### C MP, BNP, CRP ####[facility] Alfqanlnku696326 [address] [place], [place] [address]Dr. Elba Anthony Globulin (S) [Mass/Vol] 4.1 g/dL Normal [facility] Comment on above: Performed By: #### C MP, BNP, CRP ####[facility] Grfnuurdoo908426 [address] [place], [place] [address]Dr. Elba Anthony Glucose [Mass/Vol] 141 mg/dL Critically high 74-106 T [facility] Comment on above: Performed By: #### C MP, BNP, CRP ####[facility] Elpixhfder100226 [address] [place], [place] [address]Dr. Elba Anthony Potassium [Moles/Vol] 4.3 mmol/L Normal 3.4-5.0 [facility] Comment on above: Performed By: #### C MP, BNP, CRP ####[facility] Tyqjcgkugm499926 [address] [place], [place] [address]Dr. Elba Anthony Protein [Mass/Vol] 6.5 g/dL Normal 6.1-8.2 [facility] Comment on above: Performed By: #### C MP, BNP, CRP ####[facility] Czvfnlehyf708[address] [place], [place] [address]Dr. Elba Anthony Sodium [Moles/Vol] 132 mmol/L Critically low 137-145 [facility] Comment on above: Performed By: #### C MP, BNP, CRP ####[facility] Gydzhrdxqb714326 [address] [place], [place] [address]Dr. Elba Anthony Urea nitrogen [Mass/Vol] 62.0 mg/dL Critically high 7.0-18.0 [facility] Comment on above: Performed By: #### C MP, BNP, CRP ####[facility] Tvfiymlmlm894126 [address] [place], [place] [address]Dr. Elba Anthony Urea nitrogen/Creatinine [Mass ratio] 20.0 mg/mg Normal [facility] Comment on above: Performed By: #### C MP, BNP, CRP ####[facility] Xlxhueoyxq691126 [address] [place], [place] [address]Dr. Elba Anthony UA RANDOM W/MICROSCOPICon BACTERIA TRACE Abnormal NONE SEEN [facility] Comment on above: Performed By: #### U AMIC ####[facility] Qhbqqtvwco277326 [address] [place], [place] [address]Dr. Elba Anthony Bilirubin Ql (U) Negative Normal NEGATIVE [facility] Comment on above: Performed By: #### U AMIC ####[facility] Qkymfosaaf094526 [address] [place], [place] [address]Dr. Elba Anthony CAST NONE SEEN Normal NONE SEEN [facility] Comment on above: Performed By: #### U AMIC ####[facility] Rwhoovlmdk132226 [address] [place], [place] [address]Dr. Elba Anthony Clarity (U) CLEAR Normal CLEAR [facility] Comment on above: Performed By: #### U AMIC ####[facility] Zspugkinnc391826 [address] [place], [place] [address]Dr. Elba Anthony Color (U) LT. YELLOW Normal YELLOW [facility] Comment on above: Performed By: #### U AMIC ####[facility] Ifvvflrlou529826 [address] [place], [place] [address]Dr. Elba Anthony Crystals LM Nom (Urine sed) SEEN Abnormal NONE SEEN [facility] Comment on above: Performed By: #### U AMIC ####[facility] Nipiseipnn7169 [place] [phone]. Elba Anthony Epithelial cells LM Ql (Urine sed) RARE Normal NONE SEEN /RARE [facility] Comment on above: Performed By: #### U AMIC ####[facility] Rluafcvock6781 [place] [address]Dr. Elba Anthony Glucose Ql (U) Negative Normal NEGATIVE [facility] Comment on above: Performed By: #### U AMIC ####[facility] Ratlshbndk9616 [place] [address]Dr. Elba Anthony Hemoglobin Ql (U) MODERATE Abnormal NEGATIVE [facility] Comment on above: Performed By: #### U AMIC ####[facility] Omueeungvu404[address] [place], [place] [address]Dr. Elba Anthony Ketones Ql (U) Negative Normal NEGATIVE [facility] Comment on above: Performed By: #### U AMIC ####[facility] Ljryxpoibe154226 [address] [place], [place] [address]Dr. Elba Anthony LEUKOCYTES Negative Normal NEGATIVE [facility] Comment on above: Performed By: #### U AMIC ####[facility] Bmofcwkwcb8678[address] [place], [place] [address]Dr. Elba Anthony MUCOUS NONE SEEN Normal NONE SEEN [facility] Comment on above: Performed By: #### U AMIC ####[facility] Sxjgyexyki4808 [place] [address]Dr. Elba Anthony Nitrite Ql (U) Negative Normal NEGATIVE [facility] Comment on above: Performed By: #### U AMIC ####[facility] Iaustllntl8422 [place] [phone]. Elba Anthoyn pH (U) 5.5 [pH] Normal 5-9 [facility] Comment on above: Performed By: #### U AMIC ####[facility] Syqqnmgaqo453626 [address] [place], [place] [address]Dr. Elba Anthony RBC 50-75 Abnormal 0-2 [facility] Comment on above: Performed By: #### U AMIC ####[facility] Qmnxndwyap2977[address] [place], [place] [address]Dr. Elba Anthony SPEC GRAVITY 1.015 Normal 1.005-<=1.02 5 [facility] Comment on above: Performed By: #### U AMIC ####[facility] Vlxbzuocfr4144 [place] [address]Dr. Nereydasiobhan Anthony UA PROTEIN Negative Normal NEGATIVE/ TRACE [facility] Comment on above: Performed By: #### U AMIC ####[facility] Vdvomgkluw8548 [place] [address]Dr. Elba Anthony URIC ACID CRYSTALS FEW Normal [facility] Comment on above: Performed By: #### U AMIC ####[facility] Iegrgrvanh7318 [place] [address]Dr. Elba Anthony Urobilinogen Qn (U) 0.2 {Caden'U}/dL Normal 0.2 - 1. 0 [facility] Comment on above: Performed By: #### U AMIC ####[facility] Yvdiqsnwab956226 [address] [place], [place] [address]Dr. Elba Anthony WBC 0-2 Abnormal NONE SEEN [facility] Comment on above: Performed By: #### U AMIC ####[facility] Eenwlhjqwj1518[address] [place], [place] [address]Dr. Elba Raj BNPon 12-14-2021 Natriuretic peptide B (Bld) [Mass/Vol] 61799.0 pg/mL Critically high <=900.0 [facility] Comment on above: Result Comment: test repeated Performed By: #### C RP, CMP, BNP ####[facility] Yqbxfxbttw6957[address] [place], [place] [address]Dr. Elba Anthony CBC AUTO DIFFon 12-14-2021 BASO # 0.0 103/ul Normal 0.0-0.1 [facility] Comment on above: Performed By: #### C BC ####[facility] Nmpyeaybyo0422[address] [place], [place] [address]Dr. Elba Anthony Basophils/100 WBC (Bld) 0.1 % Critically low 0.2-2.0 [facility] Comment on above: Performed By: #### C BC ####[facility] Uxdgzaefbi8338 [place] [id number]. Elba Anthony EO # 0.1 103/ul Normal 0.0-0.7 [facility] Comment on above: Performed By: #### C BC ####[facility] Piytaxxmxe5129 [place] [address]Dr. Elba Anthony Eosinophils/100 WBC (Bld) 1.1 % Normal 0.9-7.0 [facility] Comment on above: Performed By: #### C BC ####[facility] Jvgymirgln5244[address] [place], [place] [address]Dr. Elba Anthony Erythrocyte distribution width (RBC) [Ratio] 18.7 % Critically high 11.0-15.0 [facility] Comment on above: Performed By: #### C BC ####[facility] Tkugthetrd1070[address] [place], [place] [address]Dr. Elba Anthony Hematocrit (Bld) [Volume fraction] 28.9 % Critically low 42.0-54.0 [facility] Comment on above: Performed By: #### C BC ####[facility] Yldeiufdww996[address] [place], [place] [address]Dr. Elba Anthony Hemoglobin (Bld) [Mass/Vol] 8.7 g/dL Critically low 14.0-18.0 [facility] Comment on above: Performed By: #### C BC ####[facility] Bbawgkkzou7816[address] [place], [place] [address]Dr. Elba Anthony IG # 0.04 10e3/ul Critically high 0.00-0.03 [facility] Comment on above: Performed By: #### C BC ####[facility] Etwxcyiecn0918[address] [place], [place] [address]Dr. Elba Anthony IG % 0.4 % Normal 0.0-0.5 [facility] Comment on above: Performed By: #### C BC ####[facility] Grzbmuohwy0966[address] [place], [place] [address]Dr. Elba Anthony LYMPH # 0.4 103/ul Critically low 1.2-3.8 [facility] Comment on above: Performed By: #### C BC ####[facility] Lndjjsffti8905 [place] [id number]. Elba Raj Lymphocytes/100 WBC (Bld) 4.1 % Critically low 20.5-60.0 [facility] Comment on above: Result Comment: dif. not rqd. same as 12/12/21 Performed By: #### C BC ####[facility] Nzwstqqyps4970 [place] [address]Dr. Elba Anthony MANUAL DIFF REQ NO Normal [facility] Comment on above: Performed By: #### C BC ####[facility] Glmgelydrm5866 [place] [phone]. Nereydasiobhan Anthony MCH (RBC) [Entitic mass] 25.3 pg Critically low 25.9-34.0 [facility] Comment on above: Performed By: #### C BC ####[facility] Qcgbrepcfi2033 [place] [address]Dr. Elba Anthony MCHC (RBC) [Mass/Vol] 30.1 g/dL Normal 29.9-35.2 [facility] Comment on above: Performed By: #### C BC ####[facility] Itgobuzucs5986 [place] [address]Dr. Nereydasiobhan Anthony MCV (RBC) [Entitic vol] 84.0 fL Normal 80.0-94.0 [facility] Comment on above: Performed By: #### C BC ####[facility] Oxrgfdqozm640[address] [place], [place] [address]Dr. Elba Anthony MONO # 0.9 103/ul Critically high 0.3-0.8 [facility] Comment on above: Performed By: #### C BC ####[facility] Zyhbzcvdyb5577 [place] [address]Dr. Nereydasiobhan Anthony Monocytes/100 WBC (Bld) 9.3 % Normal 1.7-12.0 [facility] Comment on above: Performed By: #### C BC ####[facility] Pjonjavkiq1645[address] [place], [place] [address]DrLatoya Anthony NEUT # 7.8 103/ul Critically high 1.4-6.5 [facility] Comment on above: Performed By: #### C BC ####[facility] Meuchthuck7911 [place] [id number]. Nereydasiobhan Raj Neutrophils/100 WBC (Bld) 85.0 % Critically high 43.0-75.0 [facility] Comment on above: Performed By: #### C BC ####[facility] Zpflkpcllw6388 [place] [phone]. Elba Anthony Platelet mean volume (Bld) [Entitic vol] 11.0 fL Normal 9.5-13.5 [facility] Comment on above: Performed By: #### C BC ####[facility] Djhscoahor2568 [place] [address]Dr. Elba Anthony PLT 117 103/ul Critically low 150-450 [facility] Comment on above: Performed By: #### C BC ####[facility] Ruhmtawqwr7359 [place] [address]Dr. Elba Anthony RBC 3.44 106/ul Critically low 4.70-6.10 [facility] Comment on above: Performed By: #### C BC ####[facility] Rgihyusmui0286 [place] [phone]. Elba Anthony WBC 9.2 103/ul Normal 4.0-11.0 [facility] Comment on above: Performed By: #### C BC ####[facility] Nwieupjnnr8154 [place] [address]DrLatoya Anthony CRPon 12-14-2021 CRP [Mass/Vol] mg/L Critically high <=1.0 [facility] Comment on above: Performed By: #### C RP, CMP, BNP ####[facility] Lcdovhoixf3669 [place] [phone] Anthony PROF 14(COMP METB)on 022 Albumin [Mass/Vol] 2.5 g/dL Critically low 3.4-5.0 [facility] Comment on above: Performed By: #### C RP, CMP, BNP ####[facility] Iiamxikfal5620 [place] [address]DrLatoya Anthony Albumin/Globulin [Mass ratio] 0.6 {ratio} Normal [facility] Comment on above: Performed By: #### C RP, CMP, BNP ####[facility] Bqqusaqrck7026 [place] [address]Dr. Elba Anthony ALP [Catalytic activity/Vol] 76 U/L Normal 46-116 [facility] Comment on above: Performed By: #### C RP, CMP, BNP ####[facility] Xzymhkcszy4747 [place] [address]Dr. Elba Raj ALT [Catalytic activity/Vol] 17 U/L Normal 16-63 [facility] Comment on above: Performed By: #### C RP, CMP, BNP ####[facility] Dnvozbfalf6043 [place] [address]Dr. Nereydasiobhan Raj Anion gap [Moles/Vol] 13.3 mmol/L Normal [facility] Comment on above: Performed By: #### C RP, CMP, BNP ####[facility] Zuzmlvmefk[address] [place], [place] [address]Dr. Elba Raj AST [Catalytic activity/Vol] 22 U/L Normal 15-37 [facility] Comment on above: Performed By: #### C RP, CMP, BNP ####[facility] Jpeysxwhyc2725 [place] [address]Dr. Elba Anthony Bilirubin [Mass/Vol] 1.0 mg/dL Normal 0.2-1.3 [facility] Comment on above: Performed By: #### C RP, CMP, BNP ####[facility] Lqfbayjbnd9177 [place] [address]Dr. Elba Anthony Calcium [Mass/Vol] 8.1 mg/dL Critically low 8.5-10.1 [facility] Comment on above: Performed By: #### C RP, CMP, BNP ####[facility] Cakskfldue7013 [place] [address]Dr. Elba Anthony Chloride [Moles/Vol] 97 mmol/L Critically low 98-107 [facility] Comment on above: Performed By: #### C RP, CMP, BNP ####[facility] Kjmtygcwje7824 [place] [address]Dr. Elba Anthony CO2 [Moles/Vol] 25.0 mmol/L Normal 22.0-30.0 [facility] Comment on above: Performed By: #### C RP, CMP, BNP ####[facility] Mdqxhvoels8133 [place] [address]Dr. Elba Anthony Creatinine [Mass/Vol] 2.85 mg/dL Critically high 0.66-1.25 [facility] Comment on above: Performed By: #### C RP, CMP, BNP ####[facility] Ffpxnxwmtp9492 [place] [address]Dr. Elba Anthony EGFR-AF UGANDAN 27 mL/min/1.73m2 Critically low >=60 [facility] Comment on above: Performed By: #### C RP, CMP, BNP ####[facility] Vbtzbddpca0373 [place] [address]Dr. lEba Anthony EGFR-NON AF UGANDAN 22 mL/min/1.73m2 Critically low >=60 [facility] Comment on above: Performed By: #### C RP, CMP, BNP ####[facility] Pazxngkuse7030 [place] [address]Dr. Elba Anthony Globulin (S) [Mass/Vol] 3.9 g/dL Normal [facility] Comment on above: Performed By: #### C RP, CMP, BNP ####[facility] Ozhpfdrpev1740 [place] [address]Dr. Elba Anthony Glucose [Mass/Vol] 123 mg/dL Critically high 74-106 [facility] Comment on above: Performed By: #### C RP, CMP, BNP ####[facility] Yofcmvukqt8741 [place] [address]Dr. Elba Anthony Potassium [Moles/Vol] 4.3 mmol/L Normal 3.4-5.0 [facility] Comment on above: Performed By: #### C RP, CMP, BNP ####[facility] Smogyprlhs6529 [place] [address]Dr. Elba Anthony Protein [Mass/Vol] 6.4 g/dL Normal 6.1-8.2 [facility] Comment on above: Performed By: #### C RP, CMP, BNP ####[facility] Smfxqmpzpr6381 [place] [address]Dr. Elba Anthony Sodium [Moles/Vol] 131 mmol/L Critically low 137-145 [facility] Comment on above: Performed By: #### C RP, CMP, BNP ####[facility] [address]oolw[address] [place], [place] [address]Dr. Elba Anthony Urea nitrogen [Mass/Vol] 57.0 mg/dL Critically high 7.0-18.0 [facility] Comment on above: Performed By: #### C RP, CMP, BNP ####[facility] Zzttkhdbyg8[address] [place], [place] [address]Dr. Elba Anthony Urea nitrogen/Creatinine [Mass ratio] 20.0 mg/mg Normal [facility] Comment on above: Performed By: #### C RP, CMP, BNP ####[facility] Ucsdiltmnp932926 [address] [place], [place] [address]Dr. Elba Anthony XR CHEST 1 Von 12-14-2021 XR CHEST 1 V Normal [facility] XR CHEST 1 V Normal [facility] BNPon 12-13-2021 Natriuretic peptide B (Bld) [Mass/Vol] 43862.0 pg/mL Critically high <=900.0 [facility] Comment on above: Performed By: #### B CAD DESIGNER DRAFTER ####[facility] Fcinnnyjhg675726 [address] [place], [place] [address]Dr. Elba Anthony CBC AUTO DIFFon 12-13-2021 BASO # 0.0 103/ul Normal 0.0-0.1 [facility] Comment on above: Performed By: #### C BC ####[facility] Wnqfjodzpo1636[address] [place], [place] [address]Dr. Elba Anthony Basophils/100 WBC (Bld) 0.1 % Critically low 0.2-2.0 [facility] Comment on above: Performed By: #### C BC ####[facility] Fwfmrisoof349726 [address] [place], [place] [address]Dr. Elba Anthony EO # 0.0 103/ul Normal 0.0-0.7 [facility] Comment on above: Performed By: #### C BC ####[facility] Txmtapommj7237 [place] [address]Dr. Elba Anthony Eosinophils/100 WBC (Bld) 0.2 % Critically low 0.9-7.0 [facility] Comment on above: Performed By: #### C BC ####[facility] Myjqojcmiv838626 [address] [place], [place] [address]Dr. Elba Anthony Erythrocyte distribution width (RBC) [Ratio] 19.0 % Critically high 11.0-15.0 [facility] Comment on above: Performed By: #### C BC ####[facility] Aklbyzipoc329426 [address] [place], [place] [address]Dr. Elba Anthony Hematocrit (Bld) [Volume fraction] 31.8 % Critically low 42.0-54.0 [facility] Comment on above: Performed By: #### C BC ####[facility] Mqnyplavgp1090[address] [place], [place] [address]Dr. Elba Anthony Hemoglobin (Bld) [Mass/Vol] 9.5 g/dL Critically low 14.0-18.0 [facility] Comment on above: Performed By: #### C BC ####[facility] Pfssmrtpms167[address] [place], [place] [address]Dr. Elba Raj IG # 0.05 10e3/ul Critically high 0.00-0.03 [facility] Comment on above: Performed By: #### C BC ####[facility] Ubtjgcukqr0579[address] [place], [place] [address]Dr. Nereydasiobhan Anthony IG % 0.4 % Normal 0.0-0.5 [facility] Comment on above: Performed By: #### C BC ####[facility] Onbpahtfpf9369[address] [place], [place] [address]Dr. Elba Anthony LYMPH # 0.3 103/ul Critically low 1.2-3.8 [facility] Comment on above: Performed By: #### C BC ####[facility] Wibgdlqhqf489[address] [place], [place] [address]Dr. Nereydasiobhan Anthony Lymphocytes/100 WBC (Bld) 2.3 % Critically low 20.5-60.0 [facility] Comment on above: Result Comment: dif. not rqd. same as 12/12/21 Performed By: #### C BC ####[facility] Ksmdbayega4621 [place] [id number]. Elba Raj MANUAL DIFF REQ NO Normal [facility] Comment on above: Performed By: #### C BC ####[facility] Zgmbjxdinq2937 [place] [address]Dr. Elba Raj MCH (RBC) [Entitic mass] 25.3 pg Critically low 25.9-34.0 [facility] Comment on above: Performed By: #### C BC ####[facility] Thxvbbtjcq6899 [place] [address]Dr. Elba Raj MCHC (RBC) [Mass/Vol] 29.9 g/dL Normal 29.9-35.2 [facility] Comment on above: Performed By: #### C BC ####[facility] Savdqvkmfs8419 [place] [address]Dr. Nereydasiobhan Anthony MCV (RBC) [Entitic vol] 84.8 fL Normal 80.0-94.0 [facility] Comment on above: Performed By: #### C BC ####[facility] Aasdxfocpc0146[address] [place], [place] [address]Dr. Elba Anthony MONO # 0.8 103/ul Normal 0.3-0.8 [facility] Comment on above: Performed By: #### C BC ####[facility] Dwyeszfdyf8651 [place] [address]Dr. Nereydasiobhan Anthony Monocytes/100 WBC (Bld) 6.7 % Normal 1.7-12.0 [facility] Comment on above: Performed By: #### C BC ####[facility] Fczpviyudd3443 [place] [address]Dr. Elba Anthony NEUT # 11.0 103/ul Critically high 1.4-6.5 [facility] Comment on above: Performed By: #### C BC ####[facility] Bppyzhfdsz9984 [place] [id number]. Elba Anthony Neutrophils/100 WBC (Bld) 90.3 % Critically high 43.0-75.0 [facility] Comment on above: Performed By: #### C BC ####[facility] Vkjtlhcfsg4209 [place] [address]Dr. Elba Raj Platelet mean volume (Bld) [Entitic vol] 10.8 fL Normal 9.5-13.5 [facility] Comment on above: Performed By: #### C BC ####[facility] Ebtnoatnij1529 [place] [address]Dr. Nereydasiobhan Raj PLT 130 103/ul Critically low 150-450 [facility] Comment on above: Performed By: #### C BC ####[facility] Mcdpcznehb2157 [place] [address]Dr. Elba Anthony RBC 3.75 106/ul Critically low 4.70-6.10 [facility] Comment on above: Performed By: #### C BC ####[facility] Pcbczxctvj0009 [place] [address]Dr. Elba Anthony WBC 12.2 103/ul Critically high 4.0-11.0 [facility] Comment on above: Performed By: #### C BC ####[facility] Jlwlmkfsmr0802 [place] [address]Dr. Elba Anthony CRPon 12-13-2021 CRP [Mass/Vol] mg/L Critically high <=1.0 [facility] Comment on above: Performed By: #### C MP, CRP ####[facility] Iveoywtzuq5916 [place] [address]Dr. Elba Anthony ECHO LIMITED STUDYon ECHO LIMITED STUDY Normal [facility] PROF 14(COMP METB)on Albumin [Mass/Vol] 2.9 g/dL Critically low 3.4-5.0 [facility] Comment on above: Performed By: #### C MP, CRP ####[facility] Wlqkstrdpq8156 [place] [address]Dr. Elba Anthony Albumin/Globulin [Mass ratio] 0.7 {ratio} Normal [facility] Comment on above: Performed By: #### C MP, CRP ####[facility] Pibymslrwf7758 [place] [address]Dr. Elba Anthony ALP [Catalytic activity/Vol] 88 U/L Normal 46-116 [facility] Comment on above: Performed By: #### C MP, CRP ####[facility] Agdwwkaqbe3831 [place] [address]Dr. Elba Anthony ALT [Catalytic activity/Vol] 15 U/L Critically low 16-63 [facility] Comment on above: Performed By: #### C MP, CRP ####[facility] Afqetayuhd301926 [address] [place], [place] [address]Dr. Elba Anthony Anion gap [Moles/Vol] 15.1 mmol/L Normal [facility] Comment on above: Performed By: #### C MP, CRP ####[facility] Mwswbvueik891226 [address] [place], [place] [address]Dr. Elba Anthony AST [Catalytic activity/Vol] 14 U/L Critically low 15-37 [facility] Comment on above: Performed By: #### C MP, CRP ####[facility] Acbdeywqde000526 [address] [place], [place] [address]Dr. Elba Anthony Bilirubin [Mass/Vol] 1.5 mg/dL Critically high 0.2-1.3 [facility] Comment on above: Performed By: #### C MP, CRP ####[facility] Tqyphggwii079326 [address] [place], [place] [address]Dr. Elba Anthony Calcium [Mass/Vol] 8.6 mg/dL Normal 8.5-10.1 [facility] Comment on above: Performed By: #### C MP, CRP ####[facility] Ecpuabyvzz463626 [address] [place], [place] [address]Dr. Elba Anthony Chloride [Moles/Vol] 99 mmol/L Normal 98-107 [facility] Comment on above: Performed By: #### C MP, CRP ####[facility] Btbtqcsyts319[address] [place], [place] [address]Dr. Elba Anthony CO2 [Moles/Vol] 24.3 mmol/L Normal 22.0-30.0 [facility] Comment on above: Performed By: #### C MP, CRP ####[facility] Bgzednmhpu3266 [place] [address]Dr. Elba Anthony Creatinine [Mass/Vol] 2.52 mg/dL Critically high 0.66-1.25 [facility] Comment on above: Performed By: #### C MP, CRP ####[facility] Wwvsnvktyf7[address] [place], [place] [address]Dr. Elba Anthony EGFR-AF UGANDAN 31 mL/min/1.73m2 Critically low >=60 [facility] Comment on above: Performed By: #### C MP, CRP ####[facility] Pvmugmiyue668[address] [place], [place] [address]Dr. Elba Anthony EGFR-NON AF UGANDAN 25 mL/min/1.73m2 Critically low >=60 [facility] Comment on above: Performed By: #### C MP, CRP ####[facility] Avwgctolsb643[address] [place], [place] [address]Dr. Elba Anthony Globulin (S) [Mass/Vol] 3.9 g/dL Normal [facility] Comment on above: Performed By: #### C MP, CRP ####[facility] Ojwtmufrva2205 [place] [address]Dr. Elba Anthony Glucose [Mass/Vol] 133 mg/dL Critically high 74-106 [facility] Comment on above: Performed By: #### C MP, CRP ####[facility] Pmgdgbnzia0671 [place] [address]Dr. Elba Anthony Potassium [Moles/Vol] 4.4 mmol/L Normal 3.4-5.0 [facility] Comment on above: Performed By: #### C MP, CRP ####[facility] Gfjdvjbhzw8724[address] [place], [place] [address]Dr. Elba Anthony Protein [Mass/Vol] 6.8 g/dL Normal 6.1-8.2 [facility] Comment on above: Performed By: #### C MP, CRP ####[facility] Jogflstyyz0339 [place] [address]Dr. Elba Anthony Sodium [Moles/Vol] 134 mmol/L Critically low 137-145 Th [facility] Comment on above: Performed By: #### C MP, CRP ####[facility] Nlfvdeyzov1957 [place] [address]Dr. Elba Anthony Urea nitrogen [Mass/Vol] 47.0 mg/dL Critically high 7.0-18.0 [facility] Comment on above: Performed By: #### C MP, CRP ####[facility] Qhwsaoxgwn4073 [place] [address]Dr. Elba Anthony Urea nitrogen/Creatinine [Mass ratio] 18.7 mg/mg Normal [facility] Comment on above: Performed By: #### C MP, CRP ####[facility] Doyadsbjet0805 [place] [address]Dr. Elba Anthony T3, TOTAL (TRIIODOTHYRONINE) on 12-13-2021 T3, TOTAL 66 ng/dL Critically low 71-180 [facility] Comment on above: Performed By: #### T 3TOTAL ####[facility] Pwsxtihnbm0241 [place] [address]Dr. Elba Anthony US KIDNEYS BLADDERon 022 US KIDNEYS BLADDER Normal [facility] BLOOD CULTURE ID PANELon A. baumannii Not detected Normal [facility] Comment on above: Performed By: #### B PABLO ####[facility] Pflsvitgbs6331 [place] [address]Dr. Elba Anthony BCID CONTROLS PASSED Normal [facility] Comment on above: Performed By: #### B PABLO ####[facility] Mnzmbysyha2955 [place] [address]Dr. Elba Anthony BCIDBTHD BLOOD CULTURE BOTTLE INFORMATION Normal [facility] Comment on above: Performed By: #### B PABLO ####[facility] Pvazybiqmb1219 [place] [address]Dr. Elba Anthony BCIDHD1 ANTIMICROBIAL RESIST ANCE GENES Normal [facility] Comment on above: Performed By: #### B PABLO ####[facility] Kqawnpdyid6541 [place] [address]Dr. Yisiobhan Anthony BCIDHD2 SEE BELOW Normal [facility] Comment on above: Result Comment: KPC- carbapenem resistance gene, mecA- methecillin resistance gene, van A/B- vancomycin resistance gene Note: Antimicrobial resitance can occur via multiple mechanisms. A Not Detected result for the Film[employer] antomicrobial resistance gene assays does not indicate antimicrobial susceptibility. Subculturing is required for specis identificationand susceptibility testing of isolates. Performed By: #### B PABLO ####[facility] Jxfjcojlcn6544 [place] [address]Dr. Elba Anthony BCIDHD3 Positive [facility] Comment on above: Performed By: #### B PABLO ####[facility] Gnlscitbyy1430[address] [place], [place] [address]Dr. Yisiobhan Anthony BCIDHD4 Negative Normal [facility] Comment on above: Performed By: #### B PABLO ####[facility] Pwxlnbamcd9115[address] [place], [place] [address]Dr. Yisiobhan Anthony BCIDHD5 YEAST Normal [facility] Comment on above: Performed By: #### B PABLO ####[facility] Owkrhpntdw984[address] [place], [place] [address]Dr. Yisiobhan Anthony BCIDHD6 SEE BELOW [facility] Comment on above: Result Comment: Note : All genus and species BCID Film[employer] results will be verified post subculturing via Maldi-Tof MS testing methodology. Performed By: #### B PABLO ####[facility] Inuqfhmasm9939[address] [place], [place] [address]Dr. Elba Anthony Bottle Set: Set 1 Normal [facility] Comment on above: Performed By: #### B PABLO ####[facility] Ilftalacvs9395 [place] [phone]. Elba Anthony Bottle: Aerobic Normal [facility] Comment on above: Performed By: #### B PABLO ####[facility] Tcjlgoabvc3139 [place] [address]Dr. Yisiobhan Anthony Lorelei albicans Not detected Normal [facility] Comment on above: Performed By: #### B PABLO ####[facility] Djncckiofo6692 [place] [address]Dr. Yilan Anthony Lorelei glabrata Not detected Normal [facility] Comment on above: Performed By: #### B PABLO ####[facility] Ybljsbkshv4320 [place] [address]Dr. Yilan Anthony Lorelei Krusei Not detected Normal [facility] Comment on above: Performed By: #### B PABLO ####[facility] Oazesckdoh2629 [place] [address]Dr. Yilan Anthony Lorelei Parapsilosis Not detected Normal [facility] Comment on above: Performed By: #### B PABLO ####[facility] Gluzatlhrc4357[address] [place], [place] [address]Dr. Yilan Anthony Lorelei Tropicalis Not detected Normal [facility] Comment on above: Performed By: #### B PABLO ####[facility] Klgurmezgg745426 [address] [place], [place] [address]Dr. Yisiobhan Anthony E. Cloacae complex Not detected Normal [facility] Comment on above: Performed By: #### B PABLO ####[facility] Nghgnmpuuz548626 [address] [place], [place] [address]Dr. Yilan Anthony Enterobacteriaceae Not detected Normal [facility] Comment on above: Performed By: #### B PABLO ####[facility] Zuiuvgwuiz4244[address] [place], [place] [address]Dr. Yilan Anthony Enterococcus Not detected Normal [facility] Comment on above: Performed By: #### B PABLO ####[facility] Oduqqqtiiw16[address] [place], [place] [address]Dr. Yilan Anthony Escheria coli Not detected Normal [facility] Comment on above: Performed By: #### B PABLO ####[facility] Jremshbktn7[address] [place], [place] [address]Dr. Yilan Anthony K. oxytoca Not detected Normal [facility] Comment on above: Performed By: #### B PABLO ####[facility] Lezrfzsmug6185[address] [place], [place] [address]Dr. Yilan Anthony K. pneumoniae Not detected Normal [facility] Comment on above: Performed By: #### B PABLO ####[facility] Cezwyolrui1093 [place] [address]Dr. Elba Anthony KPC Resistant Gene Not detected Normal [facility] Comment on above: Performed By: #### B PABLO ####[facility] Zjrdqxfggy2083 [place] [address]Dr. Elba Anthony List. monocytogenes Not detected Normal [facility] Comment on above: Performed By: #### B PABLO ####[facility] Lakurhgmog401[address] [place], [place] [address]Dr. Elba Anthony mecA Resistant Gene Not Applicable Normal [facility] Comment on above: Performed By: #### B PABLO ####[facility] Criruydpso043126 [address] [place], [place] [address]Dr. Elba Anthony Proteus Not detected Normal [facility] Comment on above: Performed By: #### B PABLO ####[facility] Yzetkrhnmt135526 [address] [place], [place] [address]Dr. Elba Anthony Pseud. aeruginosa Detected Critically abnormal [facility] Comment on above: Performed By: #### B PABLO ####[facility] Nswlggcvvx387[address] [place], [place] [address]Dr. Elba Anthony Seratia marcescens Not detected Normal [facility] Comment on above: Performed By: #### B PABLO ####[facility] Vsefxcgpwq890026 [address] [place], [place] [address]Dr. Elba Anthony Site: Left hand Normal [facility] Comment on above: Performed By: #### B PABLO ####[facility] Cqzkjbolfj1659[address] [place], [place] [address]Dr. Elba Anthony Staph. aureus Not detected Normal [facility] Comment on above: Performed By: #### B PABLO ####[facility] Fysgvtcxdf7089[address] [place], [place] [address]Dr. Elba Anthony Staphylococcus Not detected Normal [facility] Comment on above: Performed By: #### B PABLO ####[facility] Fklnjlpjzh847026 [address] [place], [place] [address]Dr. Elba Anthony Strep. agalactiae Not detected Normal [facility] Comment on above: Performed By: #### B PABLO ####[facility] Aijasonyjf1783 [place] [address]Dr. Elba Anthony Strep. pneumoniae Not detected Normal [facility] Comment on above: Performed By: #### B PABLO ####[facility] Jrbyzwxdff546[address] [place], [place] [address]Dr. Elba Anthony Strep. pyogenes Not detected Normal [facility] Comment on above: Performed By: #### B PABLO ####[facility] Tbcjzrplpk4147[address] [place], [place] [address]Dr. Elba Anthony Streptococcus Not detected Normal [facility] Comment on above: Performed By: #### B PABLO ####[facility] Swfiezpbsj158[address] [place], [place] [address]Dr. Elba Anthony Soledad/B Resist. Gene Not Applicable Normal [facility] Comment on above: Performed By: #### B PABLO ####[facility] Tywroqkfff2912[address] [place], [place] [address]Dr. Elba Anthony BNPon 12-12-2021 Natriuretic peptide B (Bld) [Mass/Vol] 75282.0 pg/mL Critically high <=900.0 [facility] Comment on above: Result Comment: test repeated critical value verified Performed By: #### B MP, BNP, HSTROPN ####[facility] Snxbnxfzta8964[address] [place], [place] [address]Dr. Elba Anthony CARDIAC FADY 3-6on 2 CK [Catalytic activity/Vol] 29 U/L Critically low 55-170 [facility] Comment on above: Performed By: #### C MREP ####[facility] Fnifanmuzr024[address] [place], [place] [address]Dr. Elba Anthony CK.MB [Mass/Vol] 1.26 ng/mL Normal <=2.37 [facility] Comment on above: Performed By: #### C MREP ####[facility] Gnqyvuczjp686[address] [place], [place] [address]Dr. Elba Anthony HSTROP 27.4 pg/mL Normal 4.0-42.2 [facility] Comment on above: Result Comment: CUT- OFF POINTS HAVE BEEN ESTABLISHED BASED ON THE FOURTH UNIVERSAL DEFINITIONS OF MYOCARDIALINFARCTION. THE UPPER REFERENCE LIMIT (URL) OF TROPONIN, DEFINED THE 99TH PERCENTILE OFcTnI DISTRIBUTION IN A REFERENCE POPULATION, HAS BEEN CONFIRMED THE DECISION THRESHOLDFOR MT DIAGNOSIS. Performed By: #### C KARENP ####[facility] Mzfempzpve8295 [place] [address]Dr. Elba Anthony CK [Catalytic activity/Vol] 23 U/L Critically low 55-170 [facility] Comment on above: Performed By: #### C KARENP ####[facility] Urzxxrykeb8333 [place] [address]Dr. Nereydasiobhan Anthony CK.MB [Mass/Vol] 1.41 ng/mL Normal <=2.37 [facility] Comment on above: Performed By: #### C KARENP ####[facility] Mynygtrpvo8983 [place] [address]Dr. Elba Raj HSTROP 27.2 pg/mL Normal 4.0-42.2 [facility] Comment on above: Result Comment: CUT- OFF POINTS HAVE BEEN ESTABLISHED BASED ON THE FOURTH UNIVERSAL DEFINITIONS OF MYOCARDIALINFARCTION. THE UPPER REFERENCE LIMIT (URL) OF TROPONIN, DEFINED THE 99TH PERCENTILE OFcTnI DISTRIBUTION IN A REFERENCE POPULATION, HAS BEEN CONFIRMED THE DECISION THRESHOLDFOR MT DIAGNOSIS. Performed By: #### C KARENP ####[facility] Nniftmucxw6102 [place] [address]Dr. Elba Anthony CBC W MANUAL DIFFon 12-13-19 22 ATYPICAL LYMPH # Normal [facility] Comment on above: Performed By: #### Abdoul DIANA ####[facility] Mdceprhssu3979 [place] [address]Dr. Elba Anthony ATYPICAL LYMPH % Normal [facility] Comment on above: Performed By: #### Abdoul DIANA ####[facility] Vvyhoerhyu6533 [place] [address]Dr. Elba Anthony BAND # Normal 0.0-0.3 [facility] Comment on above: Performed By: #### Abdoul DIANA ####[facility] Uiagituzvo0407 [place] [address]Dr. Elba Anthony BAND % Normal 0-5 [facility] Comment on above: Performed By: #### C BCMAN ####[facility] Zekvmnbcby8426 [place] [id number]. Elba Anthony BASOM # 0.00 103/ul Normal 0.00-0.10 [facility] Comment on above: Performed By: #### C BCMAN ####[facility] Ywctwolwwh8702 [place] [address]Dr. Elba Anthony BASOM % 0.0 % Critically low 0.2-2.0 [facility] Comment on above: Performed By: #### C BCMAN ####[facility] Zusqlmloeq8398 [place] [address]Dr. Elba Anthony BLAST # Normal [facility] Comment on above: Performed By: #### C BCVINCENT ####[facility] Mijgruxgpo6465 [place] [address]Dr. Elba Anthony BLAST % Normal [facility] Comment on above: Performed By: #### C BCVINCENT ####[facility] Brglkihjol8511 [place] [address]Dr. Elba Anthony CORRECTED WBC Normal 4.0-11.0 [facility] Comment on above: Performed By: #### C BCVINCENT ####[facility] Csipenjnfa0815[address] [place], [place] [address]Dr. Elba Anthony EOS # 0.00 103/ul Normal 0.00-0.70 [facility] Comment on above: Performed By: #### C BCVINCENT ####[facility] Ptjqjroqpy0694 [place] [address]Dr. Elba Anthony EOS% 0.0 % Critically low 0.9-7.0 [facility] Comment on above: Performed By: #### C BCVINCENT ####[facility] Pwbknylqxm6070[address] [place], [place] [address]Dr. Elba Anthony HCT 34.1 % Critically low 42.0-54.0 [facility] Comment on above: Performed By: #### C BCVINCENT ####[facility] Zoqrvsgiwh46112[address] [place], [place] [address]Dr. Elba Anthony HGB 10.1 g/dl Critically low 14.0-18.0 [facility] Comment on above: Performed By: #### Abdoul DIANA ####[facility] Apephywfvr1035 [place] [address]Dr. Elba Anthony LYMPHM # 0.32 103/ul Critically low 1.20-3.80 [facility] Comment on above: Performed By: #### Abdoul DIANA ####[facility] Szojgdvmho7713 [place] [address]Dr. Elba Anthony LYMPHM% 3.0 % Critically low 20.5-60.0 [facility] Comment on above: Performed By: #### Abdoul DIANA ####[facility] Zqgkosnejv5849 [place] [address]Dr. Elba Anthony MCH 25.5 pg Critically low 25.9-34.0 [facility] Comment on above: Performed By: #### Abdoul DIANA ####[facility] Secohmyayf3[address] [place], [place] [address]Dr. Elba Anthony MCHC 29.6 g/dl Critically low 29.9-35.2 [facility] Comment on above: Performed By: #### Abdoul DIANA ####[facility] Zqcjzqaflx5[address] [place], [place] [address]Dr. Elba Anthony MCV 86.1 fL Normal 80.0-94.0 [facility] Comment on above: Performed By: #### Abdoul DIANA ####[facility] Smnejonpui1414 [place] [address]Dr. Elba Anthony METAMYELOCYTE # Normal [facility] Comment on above: Performed By: #### Abdoul DIANA ####[facility] [id number] [place] [id number]. Elba Anthony METAMYELOCYTE % Normal [facility] Comment on above: Performed By: #### Abdoul DIANA ####[facility] Ahddtdaqpe8109 [place] [address]Dr. Elba Anthony MONOM# 0.11 103/ul Critically low 0.30-0.80 [facility] Comment on above: Performed By: #### Abdoul DIANA ####[facility] Ckchdedmwt1189 [place] [id number]. Elba Anthony MONOM% 1.0 % Critically low 1.7-12.0 [facility] Comment on above: Performed By: #### C ADALGISA ####[facility] Pexfhkapfr0335 [place] [id number]. Elba Anthony MPV 10.4 fL Normal 9.5-13.5 [facility] Comment on above: Performed By: #### C ADALGISA ####[facility] Pemnlgvwab0798 [place] [id number]. Elba Anthony MYELOCYTE # Normal [facility] Comment on above: Performed By: #### C ADALGISA ####[facility] Wrefcsbhuw5297 [place] [address]Dr. Elba Anthony MYELOCYTE % Normal [facility] Comment on above: Performed By: #### C ADALGISA ####[facility] [address] [place], [place] [address]Dr. Elba Anthony NRBC Normal [facility] Comment on above: Performed By: #### C ADALGISA ####[facility] Iaerhxmeox8139 [place] [address]Dr. Elba Anthony OVALOCYTES SLIGHT Normal [facility] Comment on above: Performed By: #### C ADALGISA ####[facility] Ssebkwgtnc3863 [place] [id number]. Elba Anthony PLT 154 103/ul Normal 150-450 [facility] Comment on above: Performed By: #### C ADALGISA ####[facility] Iitamwkino3254 [place] [id number]. Elba Anthony POIKILOCYTOSIS 1+ Normal [facility] Comment on above: Performed By: #### C ADALGISA ####[facility] Umfmejrdqp6763 [place] [id number]. Elba Anthony RBC 3.96 106/ul Critically low 4.70-6.10 [facility] Comment on above: Performed By: #### C ADALGISA ####[facility] [address] [place], [place] [address]Dr. Elba Anthony RDW 19.0 % Critically high 11.0-15.0 [facility] Comment on above: Performed By: #### C BCMAN ####[facility] Mewuochbwh5096 [place] [id number]. Elba Anthony SEG # 10.37 103/ul Critically high 1.40-6.50 [facility] Comment on above: Performed By: #### C BCMAN ####[facility] Vrsegkkdix4873 [place] [address]Dr. Elba Anthony SEG % 96.0 % Critically high 43.0-75.0 [facility] Comment on above: Performed By: #### C ADALGISA ####[facility] Ynxhob[address]iy[address] [place], [place] [address]Dr. Elba Anthony TEAR DROP CELLS SLIGHT Normal [facility] Comment on above: Performed By: #### C ADALGISA ####[facility] Yqjipxfr[address] [place], [place] [address]Dr. Elba Anthony WBC 10.8 103/ul Normal 4.0-11.0 [facility] Comment on above: Performed By: #### C ADALGISA ####[facility] Ffjak[address] [place], [place] [address]Dr. Elba Anthony CRPon 12-12-2021 CRP 3.1 mg/dL Critically high <=1.0 [facility] Comment on above: Performed By: #### C RP, TSH, T4 ####[facility] Piuhjwff[address] [place], [place] [address]Dr. Elba Anthony CULTURE BLOODon 12-12-2021 Microscopic examination of blood, culture Culture Observations: Positive blood culture. Aerobic & anaerobic bottles. BCID=Pseudomonas aeruginosa Culture Observations: Sending to [facility] for workup. Normal [facility] Comment on above: Performed By: #### B LDCX2 ####[facility] Dqhaqogmis1830 [place] [address]Dr. Elba Anthony Microscopic examination of blood, culture Culture Observations: Positive blood culture. Aerobic bottle. BCID= Pseudomonas aeruginosa. Culture Observations: Sending to [facility] for workup. Culture Observations: NO GROWTH AT 5 DAYS. ANAEROBIC BOTTLE Normal [facility] Comment on above: Performed By: #### B LDCX1 ####[facility] Lyvkpuamno3547 [place] [id number]. Elba Anthony Covid-19 PCR (CVDTB)on SARS-CoV-2 (COVID-19) RNA ELIZABETH+probe Ql (Unsp spec) Not detected Normal NOT DETECTED [facility] Comment on above: Result Comment: When diagnostic testing is negative, the possibility of a false negative should be considered inthe context of a patient's recent exposures and the presence of clinical signs and symptomsconsistent with SARS-CoV-2.This test is not yet approved or cleared by the [place] Food and Drug Administration (FDA).This test was developed by [facility], [place], [place]. The performance characteristics ofthis test were validated by [facility]. The results are not intended to beused as the sole means for clinical diagnosis or patient management decisions. The [facility] is authorized under Clinical Laboratory [...] for this test is supported by the [place] of Health and Human Service's declaration that [...] be used). Performed By: #### C VDTBH ####[facility] Tqrigdjord2098 [place] [address]Dr. Elba Anthony LACTATE/LACTIC ACIDon 2021 Lactate [Moles/Vol] 2.0 mmol/L Normal 0.7-2.0 [facility] Comment on above: Performed By: #### L ACT ####[facility] Dcmyjhdcxj0861 [place] [address]Dr. Elba Anthony Lactate [Moles/Vol] 1.7 mmol/L Normal 0.7-2.0 [facility] Comment on above: Performed By: #### L ACT ####[facility] Bdwytfkxvn4295 [place] [address]Dr. Elba Anthony PROF CHEM 8 (BAS METB)on Anion gap [Moles/Vol] 14.7 mmol/L Normal [facility] Comment on above: Performed By: #### B MP, BNP, HSTROPN ####[facility] Wgkbumprcw0968 [place] [address]Dr. Elba Anthony Calcium [Mass/Vol] 8.6 mg/dL Normal 8.5-10.1 [facility] Comment on above: Performed By: #### B MP, BNP, HSTROPN ####[facility] Pkpuydegqc9059 [place] [address]Dr. Elba Anthony Chloride [Moles/Vol] 102 mmol/L Normal 98-107 [facility] Comment on above: Performed By: #### B MP, BNP, HSTROPN ####[facility] Hunmaupafz8503 [place] [address]Dr. Elba Anthony CO2 [Moles/Vol] 25.4 mmol/L Normal 22.0-30.0 [facility] Comment on above: Performed By: #### B MP, BNP, HSTROPN ####[facility] Fvrdnfvqot9122 [place] [address]Dr. Elba Anthony Creatinine [Mass/Vol] 2.29 mg/dL Critically high 0.66-1.25 [facility] Comment on above: Performed By: #### B MP, BNP, HSTROPN ####[facility] Zgdevbojux0599 [place] [address]Dr. Elba Anthony EGFR-AF UGANDAN 35 mL/min/1.73m2 Critically low >=60 [facility] Comment on above: Performed By: #### B MP, BNP, HSTROPN ####[facility] Jmryiewpds7200 [place] [address]Dr. Nereydasiobhan Raj EGFR-NON AF UGANDAN 28 mL/min/1.73m2 Critically low >=60 [facility] Comment on above: Performed By: #### B MP, BNP, HSTROPN ####[facility] Bqigvbmqur7342 [place] [address]Dr. Elba Anthony Glucose [Mass/Vol] 130 mg/dL Critically high 74-106 [facility] Comment on above: Performed By: #### B MP, BNP, HSTROPN ####[facility] Lbhxarrwfb1772 [place] [address]Dr. Elba Anthony Potassium [Moles/Vol] 4.1 mmol/L Normal 3.4-5.0 [facility] Comment on above: Performed By: #### B MP, BNP, HSTROPN ####[facility] Vvdzledby[address] [place], [place] [address]Dr. Elba Anthony Sodium [Moles/Vol] 138 mmol/L Normal 137-145 [facility] Comment on above: Performed By: #### B MP, BNP, HSTROPN ####[facility] Vtcaflruxc[address] [place], [place] [address]Dr. Elba Anthony Urea nitrogen [Mass/Vol] 43.0 mg/dL Critically high 7.0-18.0 [facility] Comment on above: Performed By: #### B MP, BNP, HSTROPN ####[facility] Hdofsl[address] [place], [place] [address]Dr. Elba Anthony Urea nitrogen/Creatinine [Mass ratio] 18.8 mg/mg Normal [facility] Comment on above: Performed By: #### B MP, BNP, HSTROPN ####[facility] Mnucwrd[address]zv[address] [place], [place] [address]Dr. Elba Anthony T4on 12-12-2021 T4 [Mass/Vol] 11.10 ug/dL Critically high 5.53-11.00 [facility] Comment on above: Performed By: #### C RP, TSH, T4 ####[facility] Swyjixrl[address] [place], [place] [address]Dr. Elba Anthony TROPONIN, HIGH SENSITIVITYon 12-12-2021 HSTROP 26.2 pg/mL Normal 4.0-42.2 [facility] Comment on above: Result Comment: CUT- OFF POINTS HAVE BEEN ESTABLISHED BASED ON THE FOURTH UNIVERSAL DEFINITIONS OF MYOCARDIALINFARCTION. THE UPPER REFERENCE LIMIT (URL) OF TROPONIN, DEFINED THE 99TH PERCENTILE OFcTnI DISTRIBUTION IN A REFERENCE POPULATION, HAS BEEN CONFIRMED THE DECISION THRESHOLDFOR MT DIAGNOSIS. Performed By: #### B MP, BNP, HSTROPN ####[facility] Ulufuhfcpt5111 [place] [id number]. Elba Anthony TSHon 12-12-2021 TSH 1.233 uIU/mL Normal 0.470-4.680 [facility] Comment on above: Performed By: #### C RP, TSH, T4 ####[facility] Aynqzjpxjp5904 [place] [address]Dr. [facility] TSH RANGE SEE BELOW Normal [facility] Comment on above: Result Comment: <0.3 4 UIU/ml HYPERTHYROID 0.34-5.60 UIU/ml EUTHYROID >5.60 UIU/ml HYPOTHYROID Performed By: #### C RP, TSH, T4 ####[facility] Ivrzpehydk9279 [place] [address]Dr. Elba Anthony US ARLIN DOP LEG RTon 12-13-19 22 US ARLIN DOP LEG RT Normal [facility] XR TIB_FIB RT 2Von 2 XR TIB_FIB RT 2V Normal [facility] APTTon 08-01-2021 aPTT Coag (Bld) [Time] 34.5 s Normal 25.0-35.0 [facility] Comment on above: Result Comment: ALL [...] PURPOSE. Performed By: #### 5 0103 #### [facility] [address] [place] [address], [facility] BASIC METABOLIC PANELon 11-2 Calcium [Mass/Vol] 8.6 mg/dL Normal 8.6-10.3 [facility] Comment on above: Order Comment: No: D o not add to previous draw Performed By: #### 3 2044 #### [facility] [address] [place] [address], [place] Chloride [Moles/Vol] 108 mmol/L High 98-107 [facility] Comment on above: Order Comment: No: D o not add to previous draw Performed By: #### 3 2044 #### [facility] [address] [place] [address], [place] CO2 [Moles/Vol] 20 mmol/L Low 21-31 [facility] Comment on above: Order Comment: No: D o not add to previous draw Performed By: #### 3 2044 #### [facility] [address] [place] [address], [place] Creatinine [Mass/Vol] 2.66 mg/dL High 0.70-1.30 [facility] Comment on above: Order Comment: No: D o not add to previous draw Performed By: #### 3 2044 #### [facility] [address] [place] [address], [place] eGFR- 29 ml/min/1.73sq m Abnormal >60 [facility] Comment on above: Order Comment: No: D o not add to previous draw Performed By: #### 3 2044 #### [facility] [address] [place] [address], [place] eGFR- non- 24 ml/min/1.73sq m Abnormal >60 [facility] Comment on above: Order Comment: No: D o not add to previous draw Performed By: #### 3 2044 #### [facility] [address] [place] [address], [place] Glucose [Mass/Vol] 125 mg/dL High 70-100 [facility] Comment on above: Order Comment: No: D o not add to previous draw Performed By: #### 3 2044 #### [facility] [address] [place] [address], [place] Potassium [Moles/Vol] 4.4 mmol/L Normal 3.5-5.1 [facility] Comment on above: Order Comment: No: D o not add to previous draw Performed By: #### 3 2044 #### [facility] [address] [place] [address], [place] Sodium [Moles/Vol] 138 mmol/L Normal 136-145 [facility] Comment on above: Order Comment: No: D o not add to previous draw Performed By: #### 3 2044 #### [facility] [address] [place] [address], [place] Urea nitrogen [Mass/Vol] 54 mg/dL High 7-25 [facility] Comment on above: Order Comment: No: D o not add to previous draw Performed By: #### 3 2044 #### [facility] [address] [place] [address], [place] Calcium [Mass/Vol] 8.5 mg/dL Low 8.6-10.3 [facility] Comment on above: Order Comment: No: D o not add to previous draw Performed By: #### 5 102 #### [facility] [address] [place] [address], [place] Chloride [Moles/Vol] 107 mmol/L Normal 98-107 [facility] Comment on above: Order Comment: No: D o not add to previous draw Performed By: #### 5 102 #### [facility] [address] [place] [address], [place] CO2 [Moles/Vol] 23 mmol/L Normal 21-31 [facility] Comment on above: Order Comment: No: D o not add to previous draw Performed By: #### 5 0103 #### [facility] [address] [place] [address], [place] Creatinine [Mass/Vol] 2.86 mg/dL High 0.70-1.30 [facility] Comment on above: Order Comment: No: D o not add to previous draw Performed By: #### 5 0103 #### [facility] [address] [place] [address], [place] eGFR- 27 ml/min/1.73sq m Abnormal >60 [facility] Comment on above: Order Comment: No: D o not add to previous draw Performed By: #### 5 0103 #### [facility] [address] [place] [address], [facility] eGFR- non- 22 ml/min/1.73sq m Abnormal >60 [facility] Comment on above: Order Comment: No: D o not add to previous draw Performed By: #### 5 0103 #### [facility] [address] [place] [address], [place] Glucose [Mass/Vol] 114 mg/dL High 70-100 [facility] Comment on above: Order Comment: No: D o not add to previous draw Performed By: #### 5 0103 #### [facility] [address] [place] [address], [place] Potassium [Moles/Vol] 4.5 mmol/L Normal 3.5-5.1 [facility] Comment on above: Order Comment: No: D o not add to previous draw Performed By: #### 5 0103 #### [facility] [address] [place] [address], [place] Sodium [Moles/Vol] 138 mmol/L Normal 136-145 [facility] Comment on above: Order Comment: No: D o not add to previous draw Performed By: #### 5 0103 #### [facility] [address] Urea nitrogen [Mass/Vol] 58 mg/dL High 7-25 [facility] Comment on above: Order Comment: No: D o not add to previous draw Performed By: #### 5 0103 #### [facility] [address] CBC W/DIFFon 08-01-2021 ABS IMM GRANS 0.0 10*3/uL Normal 0.0-0.2 [facility] Comment on above: Order Comment: No: D o not add to previous draw Performed By: #### 5 0103 #### [facility] [address] [place] [address], [facility] ABS NEUTROPHILS 5.7 10*3/uL Normal 1.6-7.6 [facility] Comment on above: Order Comment: No: D o not add to previous draw Performed By: #### 5 0103 #### [facility] [address] [place] [address], [facility] Basophils (Bld) [#/Vol] 0.0 10*3/uL Normal 0.0-0.2 [facility] Comment on above: Order Comment: No: D o not add to previous draw Performed By: #### 5 0103 #### [facility] [address] [place] [address], [facility] Basophils/100 WBC (Bld) 0.4 % Normal 0.0-1.0 [facility] Comment on above: Order Comment: No: D o not add to previous draw Performed By: #### 5 0103 #### [facility] [address] [place] [address], [facility] Eosinophils (Bld) [#/Vol] 0.0 10*3/uL Normal 0.0-0.5 [facility] Comment on above: Order Comment: No: D o not add to previous draw Performed By: #### 5 0103 #### [facility] [address] Eosinophils/100 WBC (Bld) 0.6 % Normal 0.0-6.0 [facility] Comment on above: Order Comment: No: D o not add to previous draw Performed By: #### 5 0103 #### [facility] [address] [place] [address], [facility] Erythrocyte distribution width (RBC) [Ratio] 14.8 % Normal 11.5-15.0 [facility] Comment on above: Order Comment: No: D o not add to previous draw Performed By: #### 5 0103 #### [facility] [address] [place] [address], [facility] Hematocrit (Bld) [Volume fraction] 37.0 % Low 39.0-50.0 [facility] Comment on above: Order Comment: No: D o not add to previous draw Performed By: #### 5 0103 #### [facility] [address] [facility] [place] [address], [facility] Hemoglobin (Bld) [Mass/Vol] 11.4 g/dL Low 13.0-17.0 [facility] Comment on above: Order Comment: No: D o not add to previous draw Performed By: #### 5 0103 #### [facility] [address] [place] [address], [facility] IMMATURE GRANS 0.4 % Normal 0.0-1.0 [facility] Comment on above: Order Comment: No: D o not add to previous draw Performed By: #### 5 0103 #### [facility] [address] [facility] [place] [address], [facility] Lymphocytes (Bld) [#/Vol] 0.4 10*3/uL Low 1.2-4.0 [facility] Comment on above: Order Comment: No: D o not add to previous draw Performed By: #### 5 0103 #### [facility] [address] [place] [address], [facility] Lymphocytes/100 WBC (Bld) 5.6 % Low 20.0-45.0 [facility] Comment on above: Order Comment: No: D o not add to previous draw Performed By: #### 5 0103 #### [facility] [address] [place] [address], [facility] MCH (RBC) [Entitic mass] 27.9 pg Normal 27.0-33.0 [facility] Comment on above: Order Comment: No: D o not add to previous draw Performed By: #### 5 0103 #### [facility] [address] [place] [address], [facility] MCHC (RBC) [Mass/Vol] 30.8 g/dL Low 32.0-35.0 [facility] Comment on above: Order Comment: No: D o not add to previous draw Performed By: #### 5 0103 #### [facility] [address] [place] [address], [facility] MCV (RBC) [Entitic vol] 90.5 fL Normal 82.0-98.0 [facility] Comment on above: Order Comment: No: D o not add to previous draw Performed By: #### 5 0103 #### [facility] [address] [place] [address], [facility] Monocytes (Bld) [#/Vol] 0.6 10*3/uL Normal 0.1-1.0 [facility] Comment on above: Order Comment: No: D o not add to previous draw Performed By: #### 5 0103 #### [facility] [address] [place] [address], [facility] MONOS 8.7 % Normal 5.0-12.0 [facility] Comment on above: Order Comment: No: D o not add to previous draw Performed By: #### 5 0103 #### [facility] [address] [place] [address], [facility] Neutrophils/100 WBC (Bld) 84.3 % High 40.0-72.0 [facility] Comment on above: Order Comment: No: D o not add to previous draw Performed By: #### 5 0103 #### [facility] [address] [place] [address], [facility] Nucleated RBC/100 WBC (Bld) [Ratio] 0 % Normal 0-0 [facility] Comment on above: Order Comment: No: D o not add to previous draw Performed By: #### 5 0103 #### [facility] [address] [place] [address], [facility] PLAT CNT 144 10*3/uL Low 150-400 [facility] Comment on above: Order Comment: No: D o not add to previous draw Performed By: #### 5 0103 #### [facility] [address] [place] [address], [facility] RBC (Bld) [#/Vol] 4.09 10*6/uL Low 4.20-5.70 [facility] Comment on above: Order Comment: No: D o not add to previous draw Performed By: #### 5 0103 #### [facility] [address] [facility] [place] [address], [facility] WBC (Bld) [#/Vol] 6.75 10*3/uL Normal 4.00-10.60 [facility] Comment on above: Order Comment: No: D o not add to previous draw Performed By: #### 5 0103 #### [address] [address], [facility] CHEST AND LATERALon 08-01-20 CHEST AND LATERAL [facility] Department of Radiology [address] [place] [address] [id number] Patient Name: MAN PATEL : 1950 Sex: M Age: Race: White Pt. Location: [facility] Patient Status: I Ordered Date: 08/01/2021 [...] pneumothorax. Electronically signed: Dilcia Hernandez. Transcribed by: [email or web address], User Resident: Electronically Signed by: DILCIA HERNANDEZ @ 08/01/2021 08:57 AM [place] [facility] Comment on above: Order Comment: Check Pacemaker/AICD Lead Position, Chest X-ray PA \EANDE\ LAT in Dept ;DO NOT lift affected arm above shoulder. S/P pacemaker/ICD implant. Verify lead placement CPKon 08-01-2021 CK [Catalytic activity/Vol] 576 U/L High 30-223 [facility] Comment on above: Performed By: #### 5 0103 #### [facility] [address] [facility] [place] [address], [facility] Cardiovascular Lab Reporton 08-01-2021 Cardiovascular Lab Report [facility] #: [id number] Department of Physician: Inocencio Franks M.D. Medicine Service Date: 07/31/2021 Division of Birthdate: 1950 Cardiology Room #: 5AB [id number] Adult Cardiovascular Services [place] [address] Cardiovascular Laboratory Report INDICATION FOR PERMANENT PACEMAKER [...] P/Inocencio Franks M.D. Date Trans: 08/01/2021 05:31 A/mmo [id number] Normal [facility] MAGNESIUM BLOODon 08-01-2021 Magnesium [Mass/Vol] 2.2 mg/dL Normal 1.9-2.7 [facility] Comment on above: Order Comment: No: D o not add to previous draw Performed By: #### 5 0103 #### [facility] [address] [facility]. [address] PHOSPHORUS BLOODon 1 Phosphate [Mass/Vol] 2.9 mg/dL Normal 2.5-5.0 [facility] Comment on above: Order Comment: No: D o not add to previous draw Performed By: #### 5 0103 #### [facility] [address] PROTHROMBIN TIMEon 1 INR Coag (PPP) [Relative time] 1.54 {INR} High 0.91-1.16 [facility] Comment on above: Order Comment: [...] 1995;108:231S-246S. Performed By: #### 5 0103 #### [facility] [address] [place] [address], [place] PT Coag (PPP) [Time] 18.4 s High 12.3-14.8 [facility] Comment on above: Order Comment: No: D o not add to previous draw Result Comment: ALL RESULTS MUST BE INTERPRETED WITH RESPECT TO BLOOD DRAWING ARTIFACT OR DILUTION ERROR OF ANTICOAGULANT AT THE TIME OF SAMPLING. Performed By: #### 5 0103 #### [facility] [address] [place] [address], [place] INR Coag (PPP) [Relative time] 1.68 {INR} High 0.91-1.16 [facility] Comment on above: Result Comment: ACCC P RECOMMENDED INR FOR [...] 1995;108:231S-246S. Performed By: #### 5 0103 #### [facility] [address] [place] [address], [place] PT Coag (PPP) [Time] 19.7 s High 12.3-14.8 [facility] [facility] Comment on above: Result Comment: ALL RESULTS MUST BE INTERPRETED WITH RESPECT TO BLOOD DRAWING ARTIFACT OR DILUTION ERROR OF ANTICOAGULANT AT THE TIME OF SAMPLING. Performed By: #### 5 102 #### [facility] [address] [place] [address], [facility] URIC ACID BLOODon 08-01-2021 Urate [Mass/Vol] 10.1 mg/dL High 4.4-7.6 [facility] Comment on above: Performed By: #### 5 102 #### [facility] [address] [place] [address], [facility] BASIC METABOLIC PANELon 07-10 Calcium [Mass/Vol] 7.3 mg/dL Low 8.6-10.3 [facility] Comment on above: Performed By: #### 3 2044 #### [facility] [address] [place] [address], [facility] Chloride [Moles/Vol] 111 mmol/L High 98-107 [facility] Comment on above: Performed By: #### 3 2044 #### [facility] [address] [place] [address], [facility] CO2 [Moles/Vol] 17 mmol/L Low 21-31 [facility] Comment on above: Performed By: #### 3 2044 #### [facility] [address] [place] [address], [facility] Creatinine [Mass/Vol] 2.68 mg/dL High 0.70-1.30 [facility] Comment on above: Performed By: #### 3 2044 #### [facility] [address] [place] [address], [facility] eGFR- 29 ml/min/1.73sq m Abnormal >60 [facility] Comment on above: Performed By: #### 3 2044 #### [facility] [address] [place] [address], [facility] eGFR- non- 24 ml/min/1.73sq m Abnormal >60 [facility] Comment on above: Performed By: #### 3 2044 #### [facility] [address] [facility] Glucose [Mass/Vol] 147 mg/dL High 70-100 [facility] Comment on above: Performed By: #### 3 2044 #### [facility] [address] [facility]. [address] Potassium [Moles/Vol] 4.4 mmol/L Normal 3.5-5.1 [facility] Comment on above: Performed By: #### 3 2044 #### [facility] [address] [facility]. [address] Sodium [Moles/Vol] 138 mmol/L Normal 136-145 [facility] Comment on above: Performed By: #### 3 2044 #### [facility] [address] Urea nitrogen [Mass/Vol] 55 mg/dL High 7-25 [facility] Comment on above: Performed By: #### 3 2044 #### [facility] [address] [facility]. [address] CBC W/DIFFon 07-31-2021 ABS IMM GRANS 0.0 10*3/uL Normal 0.0-0.2 [facility] Comment on above: Performed By: #### 5 102 #### [facility] [address] [facility]. [address] ABS NEUTROPHILS 10.7 10*3/uL High 1.6-7.6 [facility] Comment on above: Performed By: #### 102 #### [facility] [address] [place] [address], [facility] Basophils (Bld) [#/Vol] 0.0 10*3/uL Normal 0.0-0.2 [facility] Comment on above: Performed By: #### 5 0103 #### [facility] [address] Basophils/100 WBC (Bld) 0.3 % Normal 0.0-1.0 [facility] Comment on above: Performed By: #### 5 0103 #### [facility] [address] [facility] [place] [address], [facility] Eosinophils (Bld) [#/Vol] 0.1 10*3/uL Normal 0.0-0.5 [facility] Comment on above: Performed By: #### 5 0103 #### [facility] [address] [facility] [place] [address], [facility] Eosinophils/100 WBC (Bld) 0.4 % Normal 0.0-6.0 [facility] Comment on above: Performed By: #### 5 3 #### [facility] [address] [facility]. [address] Erythrocyte distribution width (RBC) [Ratio] 14.6 % Normal 11.5-15.0 [facility] Comment on above: Performed By: #### 5 3 #### [facility] [address] Hematocrit (Bld) [Volume fraction] 44.3 % Normal 39.0-50.0 [facility] Comment on above: Performed By: #### 5 3 #### [facility] [address] [facility]. [address] Hemoglobin (Bld) [Mass/Vol] 13.6 g/dL Normal 13.0-17.0 [facility] Comment on above: Performed By: #### 5 0103 #### [facility] [address] [place] [address], [facility] IMMATURE GRANS 0.3 % Normal 0.0-1.0 [facility] Comment on above: Performed By: #### 5 3 #### [facility] [address] Lymphocytes (Bld) [#/Vol] 0.5 10*3/uL Low 1.2-4.0 [facility] Comment on above: Performed By: #### 5 0103 #### [facility] [address] Lymphocytes/100 WBC (Bld) 4.1 % Low 20.0-45.0 [facility] Comment on above: Performed By: #### 3 #### [facility] [address] MCH (RBC) [Entitic mass] 27.6 pg Normal 27.0-33.0 [facility] Comment on above: Performed By: #### 102 #### [facility] [address] MCHC (RBC) [Mass/Vol] 30.7 g/dL Low 32.0-35.0 [facility] Comment on above: Performed By: #### 5 3 #### [facility] [address] MCV (RBC) [Entitic vol] 90.0 fL Normal 82.0-98.0 [facility] Comment on above: Performed By: #### 5 3 #### [facility] [address] [place] [address], [facility] Monocytes (Bld) [#/Vol] 1.0 10*3/uL Normal 0.1-1.0 [facility] Comment on above: Performed By: #### 5 0103 #### [facility] [address] MONOS 8.3 % Normal 5.0-12.0 [facility] Comment on above: Performed By: #### 5 3 #### [facility] [address] [place] [address], [place] Neutrophils/100 WBC (Bld) 86.6 % High 40.0-72.0 [facility] Comment on above: Performed By: #### 5 0103 #### [facility] [address] [place] [address], [facility] Nucleated RBC/100 WBC (Bld) [Ratio] 0 % Normal 0-0 [facility] Comment on above: Performed By: #### 5 0103 #### [facility] [address] [place] [address], [facility] PLAT CNT 175 10*3/uL Normal 150-400 [facility] Comment on above: Performed By: #### 5 0103 #### [facility] [address] RBC (Bld) [#/Vol] 4.92 10*6/uL Normal 4.20-5.70 [facility] Comment on above: Performed By: #### 5 0103 #### [facility] [address] [place] [address], [facility] WBC (Bld) [#/Vol] 12.36 10*3/uL High 4.00-10.60 [facility] Comment on above: Performed By: #### 5 0103 #### [facility] [address] POC SARS COV2 ANTIGEN NEGATI VEon 07-31-2021 POC SARS COV2 ANTIGEN NEG Negative Normal NEGATIVE [facility] Comment on above: Result Comment: Nega [...] signs and symptoms consistent with COVID-19. The [employer] COVID-19 Ag Card is a lateral flow [...] of Accreditation. Performed By: #### 3 1977 ####[place] [id number] [address] PORTABLE CHEST 1 VIEWon 07-10 PORTABLE CHEST 1 VIEW [facility] Department of Radiology [address] [place] [address] Patient Name: MAN PATEL : 1950 Sex: M Age: Race: White Pt. Location: [facility] Patient Status: E Ordered Date: 07/31/2021 [...] sternotomy. Electronically signed: Rinku Agrawal. Transcribed by: [id number], User Resident: Electronically Signed by: RINKU AGRAWAL @ 07/31/2021 01:03 PM Normal [facility] Comment on above: Order Comment: Evalu ate for Aspiration TROPONIN-Ion 07-31-2021 Troponin I.cardiac [Mass/Vol] 0.07 ng/mL High 0.00-0.04 [facility] Comment on above: Result Comment: REFE RENCE RANGES: 0.00 - 0.04 ng/ml NORMAL 0.05 - 0.50 ng/ml INDETERMINATE > 0.50 ng/ml CONSISTENT WITH AN M.I. Performed By: #### 3 2044 #### [facility] [address] [facility]. [address] TSH3 WITH REFLEX FT4on 07-31 TSH 3RD GENERATION 1.98 uIU/mL Normal 0.34-5.60 [facility] Comment on above: Performed By: #### 3 2044 #### [facility] [address] [facility]. [address] Vital Signs Date Time Vital Sign Value Performing Clinician Facility 06-08-2024 13:54-0400 Body mass index (BMI) [Ratio] 43.5 kg/m2 [facility] 06-08-2024 13:47-0400 Body height 175.26 cm [facility] 06-08-2024 13:47-0400 Body temperature 98 [degF] [facility] 06-08-2024 13:47-0400 Body weight 133.8 kg [facility] 06-08-2024 13:47-0400 Diastolic blood pressure 73 mm[Hg] [facility] 06-08-2024 13:47-0400 Heart rate 93 /min [facility] 06-08-2024 13:47-0400 Respiratory rate 18 /min [facility] 06-08-2024 13:47-0400 SaO2% (BldA) [Mass fraction] 92 % [facility] 06-08-2024 13:47-0400 Systolic blood pressure 120 mm[Hg] [facility] 12-23-2023 13:53-0400 Body height 175.26 cm [facility] 12-23-2023 13:53-0400 Body mass index (BMI) [Ratio] 43.8 kg/m2 [facility] 12-23-2023 13:53-0400 Body temperature 96.9 [degF] [facility] 12-23-2023 13:53-0400 Body weight 134.71 kg [facility] 12-23-2023 13:53-0400 Diastolic blood pressure 60 mm[Hg] [facility] 12-23-2023 13:53-0400 Heart rate 91 /min [facility] 12-23-2023 13:53-0400 Respiratory rate 20 /min [facility] 12-23-2023 13:53-0400 SaO2% (BldA) [Mass fraction] 97 % [facility] 12-23-2023 13:53-0400 Systolic blood pressure 110 mm[Hg] [facility] 05-27-2023 13:00-0400 Body height 175.26 cm Dedra Mendoza Other [facility] Other 05-27-2023 13:00-0400 Body mass index (BMI) [Ratio] 41.93 kg/m2 Dedra Mendoza Other [facility] Other 05-27-2023 13:00-0400 Body temperature 96.8 [degF] Dedra Mendoza Other [facility] Other 05-27-2023 13:00-0400 Body weight 128.82 kg Dedra Mendoza Other [facility] Other 09-19-2023 13:00-0400 Diastolic blood pressure 64 mm[Hg] Aziz Bakhous Other [facility] Other 05-27-2023 13:00-0400 Respiratory rate 20 /min Aziz Bakhous Other [facility] Other 05-27-2023 13:00-0400 SaO2% (BldA) [Mass fraction] 96 % Aziz Bakhous Other [facility] Other 05-27-2023 13:00-0400 Systolic blood pressure 111 mm[Hg] Aziz Bakhous Other [facility] Other 12-10-2022 15:00-0400 Body height 175.26 cm Azduyen Bakhous Other [facility] Other 12-10-2022 15:00-0400 Body mass index (BMI) [Ratio] 39.75 kg/m2 Aziz Bakhous Other [facility] Other 12-10-2022 15:00-0400 Body temperature 96.7 [degF] Azduyen Bakhous Other [facility] Other 12-10-2022 15:00-0400 Body weight 122.11 kg Aziz Bakhous Other [facility] Other 12-10-2022 15:00-0400 Diastolic blood pressure 70 mm[Hg] Aziz Bakhous Other [facility] Other 12-10-2022 15:00-0400 Respiratory rate 20 /min Aziz Bakhous Other [facility] Other 12-10-2022 15:00-0400 SaO2% (BldA) [Mass fraction] 95 % Aziz Bakhous Other [facility] Other 12-10-2022 15:00-0400 Systolic blood pressure 110 mm[Hg] Aziz Bakhous Other [facility] Other 09-17-2022 11:00-0500 Body height 175.26 cm Azduyen Bakhous Other [facility] Other 09-17-2022 11:00-0500 Body mass index (BMI) [Ratio] 39.54 kg/m2 Azduyen Bakhous Other [facility] Other 09-17-2022 11:00-0500 Body temperature 96.2 [degF] Aziz Bakhous Other [facility] Other 09-17-2022 11:00-0500 Body weight 121.47 kg Azduyen Bakhous Other [facility] Other 09-17-2022 11:00-0500 Diastolic blood pressure 60 mm[Hg] Aziz Bakhous Other [facility] Other 09-17-2022 11:00-0500 Respiratory rate 20 /min Aziz Bakhous Other [facility] Other 09-17-2022 11:00-0500 SaO2% (BldA) [Mass fraction] 97 % Aziz Bakhous Other [facility] Other 09-17-2022 11:00-0500 Systolic blood pressure 102 mm[Hg] Aziz Bakhous Other [facility] Other 06-27-2022 17:43-0400 Diastolic blood pressure 56 mm[Hg] MD Cullen Costa Work Phone: [facility] 06-27-2022 17:43-0400 Heart rate 78 /min MD Cullen Cotsa Work Phone: [facility] 06-27-2022 17:43-0400 Respiratory rate 20 /min MD Cullen Costa Work Phone: [facility] 06-27-2022 17:43-0400 SaO2% (BldA) [Mass fraction] 95 % MD Cullen Costa Work Phone: [facility] 06-27-2022 17:43-0400 Systolic blood pressure 109 mm[Hg] MD Cullen Costa Work Phone: [facility] 06-27-2022 14:32-0400 Body height 167.64 cm MD Cullen Costa Work Phone: [facility] 06-27-2022 14:32-0400 Body temperature 97.8 [degF] MD Cullen Costa Work Phone: [facility] 06-27-2022 14:32-0400 Body weight 117.02 kg MD Cullen Costa Work Phone: [facility] Encounters Encounter Date Encounter Type Care Provider Facility Start: 06-15-2024 ambulatory [facility] Start: 06-09-2024 End: 06-09-20[facility] Start: 06-09-2024 End: 06-09-2024 ambulatory [facility] Start: 06-08-2024 End: 06-08-2024 ambulatory [facility] Work Phone: Start: 06-08-2024 End: 06-08-2024 Patient encounter procedure [facility] Lukas[facility] Work Phone: Start: 06-02-2024 Non-patient / Non-visit [facility] Work Phone: Start: 05-05-2024 End: 05-05-2024 ambulatory CYNTHIA [facility] Start: 04-30-2024 Non-patient / Non-visit [facility] Work Phone: Start: 01-27-2024 End: 01-27-2024 ambulatory [facility] Start: 12-23-2023 End: 12-23-2023 ambulatory [facility] Work Phone: Start: 12-23-2023 End: 12-23-2023 Patient encounter procedure [facility]ph[facility] Lukasz Work Phone: Start: 12-17-2023 Non-patient / Non-visit [facility] Work Phone: Start: 10-20-2023 End: 10-20-2023 ambulatory [facility] Start: 07-28-2023 End: 07-28-2023 ambulatory [facility] Start: 06-09-2023 End: 06-09-2023 ambulatory Cullen Costa Other [facility] Other Start: 06-09-2023 Telephone encounter Cullen Costa [facility] Start: 05-27-2023 End: 05-27-2023 ambulatory Azduyen Robersons Other [facility] Other Start: 05-27-2023 Office outpatient visit 25 minutes Azduyen Robersons [facility] Start: 05-20-2023 End: 05-20-2023 ambulatory Cullen Costa Other [facility] Other Start: 05-20-2023 Telephone encounter Cullen Costa [facility] Start: 12-10-2022 End: 12-10-2022 ambulatory Azduyen Bakevangelinas Other [facility] Other Start: 12-10-2022 Office outpatient visit 25 minutes Aziz Bakhous [facility] Start: 12-03-2022 End: 12-04-2022 ambulatory AZIZ BAKHOUS Facility:[facility] Start: 11-27-2022 End: 11-28-2022 ambulatory AZIZ BAKHOUS Facility:[facility] Start: 09-17-2022 End: 09-17-2022 ambulatory Aziz Bakhous Other [facility] Other Start: 09-17-2022 Office outpatient ne w 30 minutes Aziz Bakhous [facility] Start: 07-25-2022 End: 07-25-[address] MARK INIGUEZ Facility:[facility] Start: 07-10-2022 End: 07-11-[address] TIGIST IGLESIAS Facility:[facility] Start: 06-27-2022 End: 06-27-2022 Emergency department patient visit Cullen Costa Facility:[facility] Start: 06-27-2022 End: 06-27-2022 Emergency department patient visit MD Cullen Costa Work Phone: [facility] Start: 06-24-2022 End: 06-25-2022 ambulatory GAGE SIMPSON Facility:[facility] Start: 04-29-2022 ambulatory MIS Herring lity:[facility] Start: 04-26-2022 End: 05-03-2022 ambulatory CULLEN COSTA Facility:[email or web address] Start: 04-25-2022 End: 05-09-2022 Evaluation and management of inpatient TAYLOR HOWARD Facility:[facility] [[email or web address] Start: 04-24-2022 End: 04-25-2022 ambulatory VIOLETA VILLAREAL Facility:[facility] Start: 04-22-2022 End: 04-22-2022 ambulatory CYNTHIA PALMA Facility:[facility] Start: 04-15-2022 End: 04-15-[address] LI CINTRON Facility:[facility] Start: 04-04-2022 End: 04-05-2022 ambulatory MIS STORM Facility:[facility] Start: 04-02-2022 End: 04-02-[address] LI CINTRON Facility:[facility] Start: 04-01-2022 End: 04-01-[address] WALE Klein Facility:[facility] Start: 03-12-2022 End: 03-13-2022 [facility] Start: 02-14-2022 End: 02-15-2022 [facility] Start: 01-16-2022 End: 01-17-2022 ambulatory [facility] Start: 01-07-2022 End: 01-08-2022 ambulatory MIS [...] Evaluation and management of inpatient REFERRED SELF Facility:[facility] [[email or web address] Procedures Date Procedure Procedure Detail Performing Clinician Start: 06-27-2022 Plain chest X-ray MD Fito Costa Work Phone: Start: 12-14-2021 Insertion of Infusio n Device into Upper Vein, Percutaneous Approach ISHADUYEN NEWMANRICHARDSON Start: 04-28-2014 General examination of patient Cullen Igor Other SARS Antigen (LFIA) MD Marly Costa Work Phone: Plan of Treatment Date Care Activity Detail Author Start: 06-27-2022 Duplex scan of lower limb veins US venous duplex LE BI [facility] Start: 06-27-2022 US Lower extremity v ein - bilateral [facility] Bacteria identified in Blood by Culture [facility] Patient Education Cellulitis (Sk in Infection), Adult (DC) [facility] Work Phone: Patient referral [facility] Work Phone: Renal function 1999 panel - Serum or Plasma [facility] Renal function 1999 panel - Serum or Plasma [facility] Payers Date Payer Category Payer Unknown [id number] 1959 Medicare [id number] 1959 Self-pay 1959 Unknown [id number] 1950 Unknown [id number] 2.16.8 40.1.848600.3.579.2.647 1950 Unknown [id number] 2.16.8 40.1.488523.3.579.2.647 1950 Unknown [id number] 2.16.8 40.1.141072.3.579.2.647 1950 Unknown [id number] 2.16.84 0.1.759404.3.579.2.593 1950 Unknown [id number] 2.16.84 0.1.840408.3.579.2.593 1950 Unknown [id number] 2.16.84 0.1.631086.3.579.2.593 1950 Unknown [id number] 2.16.84 0.1.641519.3.579.2.593 1950 Unknown [id number] 2.16.84 0.1.938362.3.579.2.593 1950 Unknown [id number] 2.16.84 0.1.363570.3.579.2.593 1950 Unknown [id number] 2.16.84 0.1.092885.3.579.2.593 1952 Unknown [id number] 2.16.84 0.1.990171.3.579.2.593 1950 Unknown [id number] 2.16.84 0.1.980457.3.579.2.593 1950 Unknown [id number] 2.16.84 0.1.307110.3.579.2.593 1952 Unknown [id number] 2.16.84 0.1.942301.3.579.2.593 1952 Unknown [id number] 2.16.84 0.1.824057.3.579.2.593 1952 Unknown [id number] 2.16.84 0.1.269077.3.579.2.593 1952 Unknown [id number] 2.16.84 0.1.305535.3.579.2.593 1952 Unknown [id number] 2.16.84 0.1.498953.3.579.2.593 1952 Unknown [id number] 2.16.84 0.1.950731.3.579.2.593 1952 Unknown [id number] 2.16.84 0.1.661247.3.579.2.593 1950 Unknown [id number] 2.16.84 0.1.476372.3.579.2.593 1950 Unknown [id number] 2.16.84 0.1.470724.3.579.2.593 1950 Unknown [id number] 2.16.84 0.1.441679.3.579.2.593 1950 Unknown [id number] 2.16.84 0.1.572802.3.579.2.593 1950 Unknown [id number] 2.16.84 0.1.110135.3.579.2.593 Unknown [id number] 2.16.8 40.1.589115.3.579.2.531 [facility] [id number] Social History Date Type Detail Facility Start: 06-27-2022 End: 12-23-2023 Tobacco smoking status NHIS Never smoked tobacco (finding) [facility] Start: 1950 Sex Assigned At Male F [facility] Sex Assigned At Sex Assigned At Bir th [facility] Other Clinical Notes 08-02-2021 to 06-09-2024 Note Date & Type Note Facility 06-09-2024 Note [facility] Subjective Man Patel is a 74 y.o. year old male patient being seen for follow up stress test. He denies chest pain, SOB, palpitations, and bleeding on Eliquis. Patient Active Problem List Diagnosis Chronic combined [...] pacemaker Renal cyst, acquired Vitamin D deficiency Family History Problem Relation Name Age of Onset Coronary artery disease Mother Hyperlipidemia Mother Hypertension Mother Stroke Mother Diabetes Mother Coronary artery disease Father Hyperlipidemia Father Hypertension Father Social History Tobacco Use Smoking status: Never Smokeless tobacco: Never Substance Use Topics Alcohol use: Never HPI Man is seen in follow up. He is a 74-year-old man with prior history of coronary disease [...] has CKD 4. He follows with nephrology. Recently he has been noted to have drop in ejection fraction and echocardiogram in April 2024 showed ejection fraction of 20 to 25%. A stress test in May 2024 showed no ischemia. Review of his Bi[employer] pacer report shows V pacing 97% with episodes of AT/A-fib 45% burden. Currently he reports that he has no angina. He has mild shortness of breath on exertion NYHA class II-III but none at rest. He has mild lower extremity swelling. He is not very ambulatory at all. Review of Systems Cardiovascular: Positive for dyspnea on exertion and leg swelling. Hematologic/Lymphatic: Bruises/bleeds easily. Skin: Positive for color change and dry skin. Musculoskeletal: Positive for muscle weakness. Neurological: Positive for weakness. All other systems reviewed and are negative. Objective Visit Vitals BP 115/78 Pulse 78 Ht 1.702 m (5' 7 ) Wt 129 kg (285 lb) SpO2 96% BMI 44.64 kg/m??? Smoking Status Never BSA 2.47 m??? Physical Exam Constitutional: Appearance: He is [...] No Known Allergies Medications Current Outpatient Medications: allopurinol (Zyloprim) 100 mg [...] BY MOUTH IN THE MORNING AND AT (more content not included)... [facility] 05-05-2024 Note Pt is here for a fol low up with echo and labs. Pt denies palpatations, chest pain, dizzines. Review of Systems Cardiovascular: Positive for leg swelling. Hematologic/Lymphatic: Bruises/bleeds easily. All other systems reviewed and are negative. [facility] 05-05-2024 Note Cardiovascular Medic [facility] SUBJECTIVE Chief Complaint Patient [...] 2022), atrial flutter status post cardioversion in 2016. [...] soft. Musculoskeletal: G (more content not included)... [facility] 01-27-2024 Note This report has been cancelled. [facility] 10-20-2023 Note [facility] Subjective Man Patel is a 73 [...] or chew., Disp: (more content not included)... [facility] 05-27-2023 Evaluation note Encounter Date Diagnosis [...] Patient follows with cardiology clinic in [facility] every 3 months. Has had seems [...] 2.4 cm in the right 4.2 cm [facility] Other 04-04-2023 Evaluation note* Encounter Date Diagnosis [...] Patient follows with cardiology clinic in [facility] every 3 months. Has had seems [...] D is low. As the patient take kksn-[id number] vitamin D supplement 2000 unit daily Dec, [...] 2.4 cm in the right 4.2 cm [facility] Other [id number] Evaluation note* Encounter Date Diagnosis Assessment Notes [...] Patient follows with cardiology clinic in [facility] every 3 months. Has had seems compensating. Patient on spironolactone and Bumex. Patient follows low-salt diet hours himself every day. Sep, Presence of permanent cardiac pacemaker (ICD-10 - Z95.0) Patient has history of complete heart block status post permanent pacemaker with defibrillator placement in 2020. And Eliquis and amiodarone in addition to metoprolol. Follows with cardiology clinic [facility] 08-30-2022 NoteMR#: [id number] I [facility] Pt. Name: Man Patel Admitted: 04/25/2022 [...] x2 on 04/29 and 05/03, insertion of Baldwin-Eleazar catheter and removal, and echocardiogram. CONSULTATIONS: Included Cardiology, Nephrology, vascular service and medical ICU. HOSPITAL COURSE: This patient is a 72-year-old male, who presents to the [facility] as a transfer from [facility] with complaints of worsening shortness of breath and weeping edema. The patient was accepted for transfer by the [facility] Cardiology Service for failed outpatient treatment [...] at this time for discharging to a snf facility with close followup with Cardiology and [...] The patient is being discharged to a snf facility. Please note that an addendum may be added to this discharge dictation as the patient's discharge is currently pending placement at this time. MEDICATIONS: As per medication reconciliation and as per above. DISCHARGE INSTRUCTIONS: Activity as tolerated with PT and OT at facility. Heart healthy, low-cholesterol diet with (more content not included)...[facility]11-25-2021 NoteMR#: [id number] I [facility] Pt. Name: Man Patel Admitted: 07/31/2021 [...] reduced ejection fraction, who initially presented to [facility] for bradycardia. He was having syncopal episodes, where he was found to have heart rate in the 30s. Atropine was given at [place] without any help. His blood pressure was stable at that time and was transferred to [facility] [[email or web address] On arrival, his EKG revealed complete heart [...] and followup as an outpatient close to [place] where the patient is from and interested [...] physician, Dr. Costa, in 1 week at [facility]. 2. Follow up with [facility] [[email or web address]] Heart on 08/10/2021 for wound/pacemaker check at 11:20 a.m. 3. Follow up with [facility] [[email or web address]] Cardiovascular on 09/04/2021 at 2:[address] [place] [address] Cintron. 4. Follow up with Nephrology around [place]. TIME SPENT: Time spent for the discharge [...] Johnson CNP Date Trans: 08/02/2021 05:18 P/surekha [id number] [facility] noteNo assessment information availableKettering [facility] Work Phone: Evaluation noteNo InformationNort [employer] Other Evaluation note* Diagnosis Onset Date Resolution Status Hyperparathyroidism acute Hypertensive nephropathy acu te Hyperuricemia acute Kidney disease, chronic, stage IV (GFR 15-29 ml/min) acute Presence of permanent cardiac pacemaker acute Renal cyst, acquired acute Systolic congestive heart failure acute Vitamin D deficiency [facility] Work Phone: History general Narrative - Reported* Type Description Date Medical History varicose veins Medical History Hypertension Medical History obesity Medical History thrombophlebitis Medical History possible DVT Medical History CAD Medical History ACUTE HYPOXIC RESPIRATORY FAILUR E Surgical History triple bypass 03/2000 Hospitalization History bypass Hospitalization History EDEMIA 06/29 Hospitalization History EDEMIA 04/2022 [facility] general Narrative - Reported* Type Description Date Medical History varicose veins Medical History Hypertension Medical History obesity Medical History thrombophlebitis Medical History possible DVT Medical History CAD Medical History ACUTE HYPOXIC RESPIRATORY FAILUR E Surgical History triple bypass 03/2000 Hospitalization History bypass Hospitalization History EDEMA 06/29 Hospitalization History EDEMA 04/2022 [facility] Other Hospital Discharge instructions Additional Instructions Take antibiotics as instructed until gone Elevate lower extremities You have blood cultures pending Follow-up with home care your primary care doctor call tomorrow for appointment Return here if any problems persist or worsen including fever, chills, increased redness, increased swelling or any other concernC[facility] Work Phone: Summary Purpose Family History No Family History Records Found Relationship Condition Age at Onset Recorded Date/T harshad brother Diabetes mellitus Unknown Heart disease Unknown Hypertension Unknown father Unknown family member Unknown Not Specified Unknown Diabetes mellitus Unknown sister Heart disease Unknown Relationship Condition Age at Onset Recorded Date/T harshad brother Diabetes mellitus Unknown Heart disease Unknown Hypertension Unknown father Unknown family member Unknown mother Unknown Diabetes mellitus Unknown sister Heart disease [...] Systolic congestive heart failure Vitamin D deficiency Chief Complaint RENAL 4 MONTH F/U Reason for Visit Hyperparathyroidism Hypertensive nephropathy Hyperuricemia [...] DATE CREATED AUTHOR 05/15/2022 [facility] DATE CREATED AUTHOR AUTHOR'S ORGANIZ ATION 07/05/2022 [facility] DATE CREATED AUTHOR AUTHOR'S ORGANIZ ATION 12/11/2022 [facility] DATE CREATED AUTHOR AUTHOR'S ORGANIZ ATION 06/16/2024 [facility] Care Teams (unrecognized sec tion and [...] December 23, 2023 End: December 23, 2023 Team Status: Active Member Role Status Dates Cullen Costa MD Primary Care Provider Active Start: April 30, 2024 Li Cintron MD Attending Provider Active Start: April 30, 2024 Team Status: Active Member Role Status Dates Cullen Costa MD Primary Care Provider Active Start: June 02, 2024 Dedra Mendoza MD Attending Provider Active Star t: June 02, 2024 Team Status: Inactive Member Role Status Dates Cullen Costa MD Primary Care Provider Active Start: June 08, 2024 End: June 08, 2024 Dedra Mendoza MD Attending Provider Active Star t: June 08, 2024 End: June 08, 2024 Goals (unrecognized section and content) Goals may be documented in a n alternate sectionNo InformationNo InformationNo InformationNo InformationNo InformationGoals may be documented in an alternate sectionGoals may be documented in an alternate section [...] BE BASED ON THE PRIMARY CLINICAL RECORDS. [facility]. provides no warranty or guarantee of the accuracy or completeness of information in this document.
--- NOTE | 2024-06-18 14:12 | XR_ITS ---
The [address] [address] Patient Name: MAN ALEGRIA MRN: [id number] date: 1950 Sex: M Assigned Patient Location: LAB Current Patient Location: Accession/Order Number: [id number] Exam Date: 06/18/2024 14:18 Report Date: 06/20/2024 08:35 At the request of: CARLI LEE Procedure: XR chest 2V EXAMINATION: XR chest 2V HISTORY: Shortness Of Breath COMPARISON: XR chest 07/11/2022 FINDINGS: LUNGS: Mild wall thickening of multiple central bronchi bilaterally. No peripheral infiltrates. VASCULATURE: No increased pulmonary vasculature. PLEURA: No pneumothorax, effusion, or pleural thickening. CARDIAC: No cardiomegaly or cardiac silhouette abnormality. MEDIASTINUM: Prior sternotomy. No abnormal widening. BONES: No fracture or visible bone lesion. OTHER: Cardiac pacer. XR/XR chest 2V IMPRESSION: 1. Mild bronchial wall thickening suggestive of bronchiolitis. Electronically authenticated by: CARSON PARKER Date: 06/20/2024 08:35
--- OUTSIDE RECORDS SUMMARY | 2024-06-18 14:13 | XMS_ITS | CCD ---
Author Organization [facility] Care Team Providers Care Cullet Washer Name Role Phone ANNELIESE HOWARDD Admitting Unavailable [...] IGOR, DR CULLEN [facility] Primary [facility] Unavailable [place], DR ZE Moraes Consulting Unavailable DEDRA MENDOZA [...] MIS Consulting Unavailable TIFFANIE SALGADO Consulting Unavailable [place], DR ZE Moraes Attending Unavailable SATURNINO, DR ZE Moraes Admitting Unavailable [facility], DR MEDEIROS Primary Care Unavailable EMETERIO, MIS [...] or physicia Propensity to adverse reactions Comment:Done [employer] Other (3 sources) Allergies Reconciled Propensity to adverse reactions Unknown [employer] Other Medications Current Medications Medication Drug Class(es) [...] 23, 2023 1:58pm take 3 tablets by [facility] every twelve hours Bumetanide 1 MG 3 tablet Orally TWICE A DAY Active cholecalciferol 0.05 mg oral tablet (8 sources) Vitamin D Start: 12-23-2023 End: 06-08-2024 take 50 ug by mouth once daily Cholecalciferol (Vitamin D3) Active 50 MCG PO Daily June 08, 2024 2:05pm Start: 12-10-2022 take 1 capsule by [facility] once daily Cholecalciferol 25 MCG (1000 UT) 1 capsule Orally Once a day for 90 days Dec, Active take 1 capsule by [facility] once daily Cholecalciferol 25 MCG (1000 [...] 23, 2023 1:59pm take 1 tablet by [facility] every twelve hours hydrALAZINE HCl 10 MG [...] disease (6 sources) Atherosclerotic heart disease of [place] coronary artery without angina pectoris; Translations: [Atherosclerosis [...] Onset: 04-01-2022 Episodic Other aftercare (1 source) [facility] (current) use of aspirin; Translations: [PENITENTIARY CURRENT USE OF ASPIRIN] Onset: 07-18-2022 Episodic Other aftercare (3 sources) 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; Translations: [OTH PENITENTIARY CURRENT DRUG THERAPY] Onset: 07-18-2022 Episodic Other aftercare (1 source) 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; Translations: [PENITENTIARY CURRNT USE ANTICOAGULANTS] Onset: 04-26-2022 Episodic Other [...] Range Facility Office Visiton 06-09-2024 Follow-up visit [id number] Man Patel 1950 M Date Provider Department Center 06/09/2024 LI MADDOX [facility] Family History Problem Relation Age of Onset Coronary artery disease Mother Hyperlipidemia Mother Hypertension Mother Stroke Mother Diabetes Mother Coronary artery disease Father Hyperlipidemia Father Hypertension Father Family Status - Relation Status Age at Mother Father Level of Service:16586 [place] OFFICE/OUTPATIENT ESTABLISHED HIGH MDM 40 MIN Normal [facility] Erythrocyte distribution wid th Auto (RBC) [Ratio]on 06-02-2024 Erythrocyte distribution width (RBC) [Ratio] 15.0 % 11.0-15.0 [facility] Estimated glomerular filtrat ion rate (GFR) non- Americanon 06-02-2024 GFR/1.73 sq M.predicted among non-blacks MDRD (S/P/Bld) [Vol rate/Area] 25 mL/min/{1.73_m2} Low >=60 [facility] Hematocrit Auto (Bld) [Volum e fraction]on 06-02-2024 Hematocrit (Bld) [Volume fraction] 48.1 % 42.0-54.0 [facility] Hemoglobin [Mass/volume] in Bloodon 06-02-2024 Hemoglobin (Bld) [Mass/Vol] 15.3 g/dL 14.0-18.0 [facility] Laboratory - Chemistry and C hemistry - challengeon 06-02-2024 Albumin [Mass/Vol] 3.9 g/dL 3.4-5.0 [facility] Calcium [Mass/Vol] 9.6 mg/dL 8.5-10.1 [facility] Chloride [Moles/Vol] 99 mmol/L 98-107 [facility] CO2 [Moles/Vol] 32.9 mmol/L High 21.0-32.0 [facility] Creatinine [Mass/Vol] 2.55 mg/dL High 0.70-1.30 [facility] GFR/1.73 sq M.predicted MDRD (S/P/Bld) [Vol rate/Area] 30 mL/min/{1.73_m2} Low >=60 [facility] Glucose [Mass/Vol] 117 mg/dL High 74-106 [facility] Magnesium [Mass/Vol] 2.5 mg/dL High 1.8-2.4 [facility] Potassium [Moles/Vol] 4.0 mmol/L 3.5-5.1 [facility] Sodium [Moles/Vol] 135 mmol/L Low 136-145 [facility] Urate [Mass/Vol] 8.1 mg/dL High 3.5-7.2 [facility] Urea nitrogen [Mass/Vol] 57.0 mg/dL High 7.0-18.0 [facility] Urea nitrogen/Creatinine [Mass ratio] 22.4 mg/mg [facility] Bilirubin Ql (U) Negative NEGATIVE [facility] Glucose (U) [Mass/Vol] Negative NEGATIVE [facility] Ketones Ql (U) Negative NEGATIVE [facility] pH (U) 6.5 [pH] 5.0-9.0 [facility] Specific gravity (U) [Rel density] 1.015 1.005-1.025 [facility] Urobilinogen Qn (U) 2.0 {Caden'U}/dL Abnormal 0.2-1.0 [facility] Laboratory - Specimen inform ationon 06-02-2024 Appearance (U) CLEAR CLEAR [facility] Color (U) LT. YELLOW YELLOW [facility] Laboratory - Urinalysison Leukocyte esterase Test strip Ql (U) Negative NEGATIVE [facility] Nitrite Ql (U) Negative NEGATIVE [facility] Protein (U) [Mass/Vol] 18.3 mg/dL High <=11.9 [facility] Protein Ql (U) Negative NEG/TRACE [facility] Leukocytes [#/volume] correc chester for nucleated erythrocytes in Blood by Automated counon 06-02-2024 WBC corrected for nucl RBC Auto (Bld) [#/Vol] 8.5 10 3/uL 4.0-11.0 [facility] MCH Auto (RBC) [Entitic mass ]on 06-02-2024 MCH (RBC) [Entitic mass] 30.2 pg 25.9-34.0 [facility] MCHC Auto (RBC) [Mass/Vol]on 06-02-2024 MCHC (RBC) [Mass/Vol] 31.8 g/dL 29.9-35.2 [facility] MCV Auto (RBC) [Entitic vol] on 06-02-2024 MCV (RBC) [Entitic vol] 94.9 fL High 80.0-94.0 [facility] Microalbumin [Mass/volume] i n Urineon 06-02-2024 Albumin DL <= 20 mg/L (U) [Mass/Vol] mg/dL <=30.0 [facility] No Panel Informationon 06-02 25-Hydroxy Vitamin D Total 29.9 ng/mL [facility] Comment on above: <20 ng/mL Vit D defi cient20-<30 ng/mL Vit D vjtbljnzqsih64-444 ng/mL Vit D sufficient>100 ng/mL Potential Toxicity Parathyroid Hormone (Intact) 85 pg/mL Abnormal 15-65 [facility] Comment on above: Performed at: [facility] [address] [id number] Director: New Vega PhD, Phone: [phone] Phosphorus Level 3.3 mg/dL 2.6-4.7 [facility] Urine Occult Blood Negative NEGATIVE [facility] Urine Random Creatinine 96.57 mg/dL 20.00-300.00 [facility] Platelet mean volume Auto (B ld) [Entitic vol]on 06-02-2024 Platelet mean volume (Bld) [Entitic vol] 9.9 fL 9.5-13.5 [facility] Platelets Auto (Bld) [#/Vol] on 06-02-2024 Platelets (Bld) [#/Vol] 182 10 3/uL 150-450 [facility] RBC Auto (Bld) [#/Vol]on RBC (Bld) [#/Vol] 5.07 10 6/uL 4.70-6.10 [facility] Serum or plasma anion gap de terminationon 06-02-2024 Anion gap [Moles/Vol] 7.1 mmol/L [facility] Urine microalbumin/creatinin e mass ratioon 06-02-2024 Albumin/Creatinine DL <= 20 mg/L (U) [Mass ratio] 13.4 mg/g 0.0-29.9 [facility] Comment on above: NO MICROALBUMINURIA 0-29 MG/GCLINICAL MICROALBUMINURIA 30-300 MG/GMACROALBUMINURIA >300 MG/G Urine protein/creatinine rat ioon 06-02-2024 Protein/Creatinine (U) [Ratio] 0.19 [facility] Office Visiton 05-05-2024 Follow-up visit [id number] Man Patel Db 1950 M Date Provider Department Center 05/05/2024 [facility]NTHIA [facility] Family History Problem Relation Age of Onset Coronary artery disease Mother Hyperlipidemia Mother Hypertension Mother Stroke Mother Diabetes Mother Coronary artery disease Father Hyperlipidemia Father Hypertension Father Family Status - Relation Status Age at Mother Father Level of Service:84226 [place] OFFICE/OUTPATIENT ESTABLISHED MOD MDM 30 MIN Reason for Visit and Comments: Congestive Heart Failure [127] Coronary Artery Disease [187] Normal [facility] Basophils Auto (Bld) [#/Vol] on 04-30-2024 Basophils (Bld) [#/Vol] 0.1 10 3/uL 0.0-0.1 [facility] Basophils/100 WBC Auto (Bld) on 04-30-2024 Basophils/100 WBC (Bld) 0.8 % 0.2-2.0 [facility] Cholesterol in LDL Calc [Mas s/Vol]on 04-30-2024 Cholesterol in LDL [Mass/Vol] 35.0 mg/dL [facility] Comment on above: <100 mg/dl [id number] 0-129 mg/dl NEAR OR ABOVE [id number] mg/dl BORDERLINE [id number] mg/dl HIGH>190 mg/dl VERY HIGH Cholesterol in VLDL Calc [Ma ss/Vol]on 04-30-2024 Cholesterol in VLDL [Mass/Vol] 8.0 mg/dL [facility] Eosinophils/100 WBC Auto (Bl d)on 04-30-2024 Eosinophils/100 WBC (Bld) 8.4 % High 0.9-7.0 [facility] Erythrocyte distribution wid th Auto (RBC) [Ratio]on 04-30-2024 Erythrocyte distribution width (RBC) [Ratio] 15.3 % High 11.0-15.0 [facility] Estimated glomerular filtrat ion rate (GFR) non- Americanon 04-30-2024 GFR/1.73 sq M.predicted among non-blacks MDRD (S/P/Bld) [Vol rate/Area] 26 mL/min/{1.73_m2} Low >=60 [facility] Globulin Calc (S) [Mass/Vol] on 04-30-2024 Globulin (S) [Mass/Vol] 3.6 g/dL [facility] Hematocrit Auto (Bld) [Volum e fraction]on 04-30-2024 Hematocrit (Bld) [Volume fraction] 45.6 % 42.0-54.0 [facility] Hemoglobin [Mass/volume] in Bloodon 04-30-2024 Hemoglobin (Bld) [Mass/Vol] 14.7 g/dL 14.0-18.0 [facility] Laboratory - Chemistry and C hemistry - challengeon 04-30-2024 Albumin [Mass/Vol] 3.6 g/dL 3.4-5.0 [facility] ALP [Catalytic activity/Vol] 110 U/L 46-116 [facility] ALT [Catalytic activity/Vol] 19 U/L 16-63 [facility] AST [Catalytic activity/Vol] 19 U/L 15-37 [facility] Bilirubin [Mass/Vol] 1.2 mg/dL High 0.2-1.0 [facility] Calcium [Mass/Vol] 9.2 mg/dL 8.5-10.1 [facility] Chloride [Moles/Vol] 100 mmol/L 98-107 [facility] Cholesterol [Mass/Vol] 101 mg/dL <=200 [facility] Cholesterol in HDL [Mass/Vol] 58 mg/dL 40-60 [facility] Comment on above: > or =60 mg/dl - LOW CARDIOVASCULAR RISK<40 mg/dl - HIGH CARDIOVASCULAR RISK CO2 [Moles/Vol] 27.5 mmol/L 21.0-32.0 [facility] Creatinine [Mass/Vol] 2.45 mg/dL High 0.70-1.30 [facility] Free T4 [Mass/Vol] 1.26 ng/dL 0.76-1.46 [facility] GFR/1.73 sq M.predicted MDRD (S/P/Bld) [Vol rate/Area] 32 mL/min/{1.73_m2} Low >=60 [facility] Glucose [Mass/Vol] 122 mg/dL High 74-106 [facility] Potassium [Moles/Vol] 4.1 mmol/L 3.5-5.1 [facility] Protein [Mass/Vol] 7.2 g/dL 6.4-8.2 [facility] Sodium [Moles/Vol] 137 mmol/L 136-145 [facility] Triglyceride [Mass/Vol] 40 mg/dL <=150 [facility] TSH Qn 2.710 m[IU]/L 0.358-3.740 [facility] Urea nitrogen [Mass/Vol] 53.0 mg/dL High 7.0-18.0 [facility] Urea nitrogen/Creatinine [Mass ratio] 21.6 mg/mg [facility] Laboratory - Hematology and Cell countson 04-30-2024 Immature granulocytes/100 WBC (Bld) 0.6 % High 0.0-0.5 [facility] Leukocytes [#/volume] correc chester for nucleated erythrocytes in Blood by Automated counon 04-30-2024 WBC corrected for nucl RBC Auto (Bld) [#/Vol] 7.2 10 3/uL 4.0-11.0 [facility] Lymphocytes Auto (Bld) [#/Vo l]on 04-30-2024 Lymphocytes (Bld) [#/Vol] 0.7 10 3/uL Low 1.2-3.8 [facility] Lymphocytes/100 WBC Auto (Bl d)on 04-30-2024 Lymphocytes/100 WBC (Bld) 9.7 % Low 20.5-60.0 [facility] MCH Auto (RBC) [Entitic mass ]on 04-30-2024 MCH (RBC) [Entitic mass] 30.0 pg 25.9-34.0 [facility] MCHC Auto (RBC) [Mass/Vol]on 04-30-2024 MCHC (RBC) [Mass/Vol] 32.2 g/dL 29.9-35.2 [facility] MCV Auto (RBC) [Entitic vol] on 04-30-2024 MCV (RBC) [Entitic vol] 93.1 fL 80.0-94.0 [facility] Monocytes Auto (Bld) [#/Vol] on 04-30-2024 Monocytes (Bld) [#/Vol] 0.6 10 3/uL 0.3-0.8 [facility] Monocytes/100 WBC Auto (Bld) on 04-30-2024 Monocytes/100 WBC (Bld) 8.2 % 1.7-12.0 [facility] Neutrophils Auto (Bld) [#/Vo l]on 04-30-2024 Neutrophils (Bld) [#/Vol] 5.2 10 3/uL 1.4-6.5 [facility] Neutrophils/100 WBC Auto (Bl d)on 04-30-2024 Neutrophils/100 WBC (Bld) 72.3 % 43.0-75.0 [facility] No Panel Informationon 04-30 Eosinophils # (Auto) 0.6 10 3/uL 0.0-0.7 [facility] Immature Granulocyte # (Auto) 0.04 10 3/uL High 0.00-0.03 [facility] Platelet mean volume Auto (B ld) [Entitic vol]on 04-30-2024 Platelet mean volume (Bld) [Entitic vol] 10.7 fL 9.5-13.5 [facility] Platelets Auto (Bld) [#/Vol] on 04-30-2024 Platelets (Bld) [#/Vol] 171 10 3/uL 150-450 [facility] RBC Auto (Bld) [#/Vol]on RBC (Bld) [#/Vol] 4.90 10 6/uL 4.70-6.10 [facility] Serum or plasma albumin/glob ulin mass ratioon 04-30-2024 Albumin/Globulin [Mass ratio] 1.0 {ratio} [facility] Serum or plasma anion gap de terminationon 04-30-2024 Anion gap [Moles/Vol] 13.6 mmol/L [facility] Serum or plasma total choles terol/high density lipoprotein (HDL) cholesterol mass ralf 04-30-2024 Cholesterol.total/Chol esterol in HDL [Mass ratio] 1.7 {ratio} [facility] Comment on above: 3.3 - 4.4 LOW RISK4. 4 - 7.1 AVERAGE RISK7.1 - 11.0 MODERATE RISK>11.0 HIGH RISK 36on 04-26-2024 36 Spoke with patient's last week and made her aware that [facility] would be calling to schedule this echo w/ [facility]. [facility] on 04-13-2024 36 Regarding echo resul t from 04/06/2024: MD Key Mao MA He needs a limited echo for LVEF with echocontrast (at [facility]). 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 Can this be done at [facility] with Mallory? I already know he's not going to be keen on driving to [place]. But if you insist, I will make him aware of the need to go to [facility]. Just thought I'd ask. [facility] 02-12-[address] Simpson wanted pinky tuckertamiko to have echo s/p device check on 01/27/2024. He is due for echo prior to his Apr [address] Cintron. [facility] Erythrocyte distribution wid th Auto (RBC) [Ratio]on 12-17-2023 Erythrocyte distribution width (RBC) [Ratio] 15.6 % 11.0-15.0 [facility] Estimated glomerular filtrat ion rate (GFR) non- Americanon 12-17-2023 GFR/1.73 sq M.predicted among non-blacks MDRD (S/P/Bld) [Vol rate/Area] 22 mL/min/{1.73_m2} >=60 [facility] Globulin Calc (S) [Mass/Vol] on 12-17-2023 Globulin (S) [Mass/Vol] 4.2 g/dL [facility] Hematocrit Auto (Bld) [Volum e fraction]on 12-17-2023 Hematocrit (Bld) [Volume fraction] 46.1 % 42.0-54.0 [facility] Hemoglobin [Mass/volume] in Bloodon 12-17-2023 Hemoglobin (Bld) [Mass/Vol] 14.9 g/dL 14.0-18.0 [facility] Laboratory - Chemistry and C hemistry - challengeon 12-17-2023 Albumin [Mass/Vol] 3.9 g/dL 3.4-5.0 [facility] ALP [Catalytic activity/Vol] 131 U/L 46-116 [facility] ALT [Catalytic activity/Vol] 21 U/L 16-63 [facility] AST [Catalytic activity/Vol] 20 U/L 15-37 [facility] Bilirubin [Mass/Vol] 1.1 mg/dL 0.2-1.0 [facility] Calcium [Mass/Vol] 9.5 mg/dL 8.5-10.1 [facility] Chloride [Moles/Vol] 100 mmol/L 98-107 [facility] CO2 [Moles/Vol] 26.5 mmol/L 21.0-32.0 [facility] Creatinine [Mass/Vol] 2.90 mg/dL 0.70-1.30 [facility] GFR/1.73 sq M.predicted MDRD (S/P/Bld) [Vol rate/Area] 26 mL/min/{1.73_m2} >=60 [facility] Glucose [Mass/Vol] 112 mg/dL 74-106 [facility] Magnesium [Mass/Vol] 2.9 mg/dL 1.8-2.4 [facility] Potassium [Moles/Vol] 4.4 mmol/L 3.5-5.1 [facility] Protein [Mass/Vol] 8.1 g/dL 6.4-8.2 [facility] Sodium [Moles/Vol] 139 mmol/L 136-145 [facility] Urate [Mass/Vol] 7.8 mg/dL 3.5-7.2 [facility] Urea nitrogen [Mass/Vol] 64.0 mg/dL 7.0-18.0 [facility] Urea nitrogen/Creatinine [Mass ratio] 22.1 mg/mg [facility] Leukocytes [#/volume] correc chester for nucleated erythrocytes in Blood by Automated counon 12-17-2023 WBC corrected for nucl RBC Auto (Bld) [#/Vol] 7.3 10 3/uL 4.0-11.0 [facility] MCH Auto (RBC) [Entitic mass ]on 12-17-2023 MCH (RBC) [Entitic mass] 29.6 pg 25.9-34.0 [facility] MCHC Auto (RBC) [Mass/Vol]on 12-17-2023 MCHC (RBC) [Mass/Vol] 32.3 g/dL 29.9-35.2 [facility] MCV Auto (RBC) [Entitic vol] on 12-17-2023 MCV (RBC) [Entitic vol] 91.5 fL 80.0-94.0 [facility] No Panel Informationon 12-16 25-Hydroxy Vitamin D Total 27.7 ng/mL [facility] Comment on above: <20 ng/mL Vit D defi cient20-<30 ng/mL Vit D pnyggsxsjaon53-795 ng/mL Vit D sufficient>100 ng/mL Potential Toxicity Miscellaneous Test COMMENT . [facility] Comment on above: Test Ordered: [id number] Prot+CreatU (Random)Creatinine, Urine 15.1 mg/dL CB Reference Range: Not Estab.Protein,Total,Urine <4.0 mg/dL CB Reference Range: Not Estab.Verified by repeat analysisProtein/Creat Ratio Comment [A ] CB Units of Measure: mg/g creat Reference Range: 0-200This result is below the assay's limit of quantitationindicating a dilute specimen, potentially due to diurnalvariation. Consider recollection at a time likely toprovide a more concentrated urine.Performed at: CB - [facility] [address] [id number] Director: New Vega PhD, Phone: [phone] Parathyroid Hormone (Intact) 140 pg/mL 15-65 [facility] Comment on above: Performed at: [facility] - [facility] [address] [id number] Director: New Vega PhD, Phone: [phone] Phosphorus Level 3.7 mg/dL 2.6-4.7 [facility] Platelet mean volume Auto (B ld) [Entitic vol]on 12-17-2023 Platelet mean volume (Bld) [Entitic vol] 10.8 fL 9.5-13.5 [facility] Platelets Auto (Bld) [#/Vol] on 12-17-2023 Platelets (Bld) [#/Vol] 195 10 3/uL 150-450 [facility] RBC Auto (Bld) [#/Vol]on RBC (Bld) [#/Vol] 5.04 10 6/uL 4.70-6.10 [facility] Serum or plasma albumin/glob ulin mass ratioon 12-17-2023 Albumin/Globulin [Mass ratio] 0.9 {ratio} [facility] Serum or plasma anion gap de terminationon 12-17-2023 Anion gap [Moles/Vol] 16.9 mmol/L [facility] Office Visiton 10-20-2023 Follow-up visit [id number] Man Patel 1950 M Date Provider Department Center 10/20/2023 LI MADDOX [facility] Family History Problem Relation Age of Onset Coronary artery disease Mother Hyperlipidemia Mother Hypertension Mother Stroke Mother Diabetes Mother Coronary artery disease Father Hyperlipidemia Father Hypertension Father Family Status - Relation Status Age at Mother Father Level of Service:69464 [place] OFFICE/OUTPATIENT ESTABLISHED LOW MDM 20 MIN Normal [facility] PTH INTACTon 12-04-2022 PTH, Intact 66 pg/mL Critically high 15-65 [facility] Comment on above: Performed By: #### P THINT ####[facility] [address] [place] [address]Dr. Elba Anthony HEMOGRAM AND PLATELon 2022 Hematocrit (Bld) [Volume fraction] 43.4 % Normal 42.0-54.0 [facility] Comment on above: Performed By: #### H H ####[facility] [address] [place] [id number]. Elba Anthony Hemoglobin (Bld) [Mass/Vol] 14.1 g/dL Normal 14.0-18.0 [facility] Comment on above: Performed By: #### H H ####[facility] [address] [place] [address]Dr. Elba Anthony MCH (RBC) [Entitic mass] 28.2 pg Normal 25.9-34.0 [facility] Comment on above: Performed By: #### H H ####[facility] [address] [place] [address]Dr. Elba Anthony MCHC (RBC) [Mass/Vol] 32.5 g/dL Normal 29.9-35.2 [facility] Comment on above: Performed By: #### H H ####[facility] [address] [place] [address]Dr. Elba Anthony MCV (RBC) [Entitic vol] 86.8 fL Normal 80.0-94.0 [facility] Comment on above: Performed By: #### H H ####[facility] [address] [place] [address]Dr. Elba Anthony PLT 170 103/ul Normal 150-450 [facility] Comment on above: Performed By: #### H H ####[facility] [address] [place], [place] [address]Dr. Elba Anthony RBC 5.00 106/ul Normal 4.70-6.10 [facility] Comment on above: Performed By: #### H H ####[facility] [address] [place], [place] [address]Dr. Elba Anthony WBC 7.2 103/ul Normal 4.0-11.0 [facility] Comment on above: Performed By: #### H H ####[facility] [address] [place] [address]Dr. Elba Anthony MAGNESIUMon 12-03-2022 Magnesium [Mass/Vol] 2.6 mg/dL Critically high 1.8-2.4 [facility] Comment on above: Performed By: #### C MP, URIC, PHOS, MG ####[facility] [address] [place] [address]Dr. Elba Anthony PHOSPHORUSon 12-03-2022 Phosphate [Mass/Vol] 3.9 mg/dL Normal 2.6-4.7 [facility] Comment on above: Performed By: #### C MP, URIC, PHOS, MG ####[facility] [address] [place] [address]Dr. Elba Anthony PROF 14(COMP METB)on 023 Albumin [Mass/Vol] 4.0 g/dL Normal 3.4-5.0 [facility] Comment on above: Performed By: #### C MP, URIC, PHOS, MG ####[facility] [address] [place] [address]Dr. Elba Anthony Albumin/Globulin [Mass ratio] 0.9 {ratio} Normal [facility] Comment on above: Performed By: #### C MP, URIC, PHOS, MG ####[facility] [address] [place] [address]Dr. Elba Anthony ALP [Catalytic activity/Vol] 159 U/L Critically high 46-116 [facility] Comment on above: Performed By: #### C MP, URIC, PHOS, MG ####[facility] Znqbxyhmlu50[address] [place] [address]Dr. Elba Anthony ALT [Catalytic activity/Vol] 33 U/L Normal 16-63 [facility] Comment on above: Performed By: #### C MP, URIC, PHOS, MG ####[facility] Wpwpjsjwup[address] [place] [address]Dr. Elba Anthony Anion gap [Moles/Vol] 15.2 mmol/L Normal [facility] Comment on above: Performed By: #### C MP, URIC, PHOS, MG ####[facility] Zvitchgggx57[address] [place] [address]Dr. Elba Anthony AST [Catalytic activity/Vol] 27 U/L Normal 15-37 [facility] Comment on above: Performed By: #### C MP, URIC, PHOS, MG ####[facility] Bglupwwqhm[address] [place] [address]Dr. Elba Anthony Bilirubin [Mass/Vol] 0.9 mg/dL Normal 0.2-1.0 [facility] Comment on above: Performed By: #### C MP, URIC, PHOS, MG ####[facility] Glpiphiagg37[address] [place] [address]Dr. Elba Anthony Calcium [Mass/Vol] 9.8 mg/dL Normal 8.5-10.1 [facility] Comment on above: Performed By: #### C MP, URIC, PHOS, MG ####[facility] Krcmwayhbu[address] [place] [address]Dr. Elba Anthony Chloride [Moles/Vol] 102 mmol/L Normal 98-107 [facility] Comment on above: Performed By: #### C MP, URIC, PHOS, MG ####[facility] Yxtitjplki[address] [place], [place] [address]Dr. Elba Anthony CO2 [Moles/Vol] 30.5 mmol/L Normal 21.0-32.0 [facility] Comment on above: Performed By: #### C MP, URIC, PHOS, MG ####[facility] Obhkyqwfjd[address] [place], [place] [address]Dr. Elba Anthony Creatinine [Mass/Vol] 2.63 mg/dL Critically high 0.70-1.30 [facility] Comment on above: Performed By: #### C MP, URIC, PHOS, MG ####[facility] Jjinadfwcg54[address] [place] [address]Dr. Elba Anthony EGFR-AF ERITREAN 29 mL/min/1.73m2 Critically low >=60 [facility] Comment on above: Performed By: #### C MP, URIC, PHOS, MG ####[facility] Wiuwmquxeq5132 [place] [address]Dr. Elba Anthony EGFR-NON AF ERITREAN 24 mL/min/1.73m2 Critically low >=60 [facility] Comment on above: Performed By: #### C MP, URIC, PHOS, MG ####[facility] Xqfqqovrxc6560 [place] [address]Dr. Elba Anthony Globulin (S) [Mass/Vol] 4.5 g/dL Normal [facility] Comment on above: Performed By: #### C MP, URIC, PHOS, MG ####[facility] Hhkncqgwww24[address] [place] [address]Dr. Elba Anthony Glucose [Mass/Vol] 122 mg/dL Critically high 74-106 [facility] Comment on above: Performed By: #### C MP, URIC, PHOS, MG ####[facility] Vobmgxxefk7740 [place] [address]Dr. Elba Anthony Potassium [Moles/Vol] 4.7 mmol/L Normal 3.5-5.1 [facility] Comment on above: Performed By: #### C MP, URIC, PHOS, MG ####[facility] Tbugwaxqtk7455 [place] [address]Dr. Elba Anthony Protein [Mass/Vol] 8.5 g/dL Critically high 6.4-8.2 [facility] Comment on above: Performed By: #### C MP, URIC, PHOS, MG ####[facility] Vluhrqytde0299 [place] [address]Dr. Elba Anthony Sodium [Moles/Vol] 143 mmol/L Normal 136-145 [facility] Comment on above: Performed By: #### C MP, URIC, PHOS, MG ####[facility] Anugthlhvk5618 [place] [address]Dr. Elba Anthony Urea nitrogen [Mass/Vol] 59.0 mg/dL Critically high 7.0-18.0 [facility] Comment on above: Performed By: #### C MP, URIC, PHOS, MG ####[facility] Fbxlcatkxj2461 [place] [address]Dr. Elba Anthony Urea nitrogen/Creatinine [Mass ratio] 22.4 mg/mg Normal [facility] Comment on above: Performed By: #### C MP, URIC, PHOS, MG ####[facility] Byzclknmvq4994 [place] [address]Dr. Elba Anthony UA RANDOMon 12-03-2022 Bilirubin Ql (U) Negative Normal NEGATIVE [facility] Comment on above: Performed By: #### U A ####[facility] Fskslqgiwf[address] [place], [place] [address]Dr. Elba Anthony Clarity (U) CLEAR Normal CLEAR [facility] Comment on above: Performed By: #### U A ####[facility] Ypgtpzswev[address] [place], [place] [address]Dr. Elba Anthony Color (U) LT. YELLOW Normal YELLOW [facility] Comment on above: Performed By: #### U A ####[facility] Vhirlhuwdx[address] [place], [place] [address]Dr. Elba Anthony Glucose Ql (U) Negative Normal NEGATIVE [facility] Comment on above: Performed By: #### U A ####[facility] Zehrjyctyj[address] [place], [place] [address]Dr. Elba Anthony Hemoglobin Ql (U) Negative Normal NEGATIVE [facility] Comment on above: Performed By: #### U A ####[facility] Agqbprnuyz05[address] [place], [place] [address]Dr. Elba Anthony Ketones Ql (U) Negative Normal NEGATIVE [facility] Comment on above: Performed By: #### U A ####[facility] Rzykofphcl[address] [place], [place] [address]Dr. Elba Anthony LEUKOCYTES Negative Normal NEGATIVE [facility] Comment on above: Performed By: #### U A ####[facility] Wspszwklui[address] [place], [place] [address]Dr. Elba Anthony Nitrite Ql (U) Negative Normal NEGATIVE [facility] Comment on above: Performed By: #### U A ####[facility] Xlehzprmdi7[address] [place], [place] [address]Dr. Elba Anthony pH (U) 7.0 [pH] Normal 5-9 [facility] Comment on above: Performed By: #### U A ####[facility] Kcatyzohyh[address] [place], [place] [address]Dr. Elba Anthony SPEC GRAVITY <=1.005 Abnormal 1.005-<=1.02 5 [facility] Comment on above: Performed By: #### U A ####[facility] Djgechvklh[address] [place], [place] [address]Dr. Elba Anthony UA PROTEIN TRACE Normal NEGATIVE/ TRACE [facility] Comment on above: Performed By: #### U A ####[facility] Vobzdpdkbb9538 [place] [address]Dr. Elba Anthony Urobilinogen Qn (U) 2.0 {Caden'U}/dL Abnormal 0.2 - 1. 0 [facility] Comment on above: Performed By: #### U A ####[facility] Dzziaeqhsy[address] [place], [place] [address]Dr. Elba Anthony URIC ACID SERUMon 12-03-2022 Urate [Mass/Vol] 9.0 mg/dL Critically high 3.5-7.2 [facility] Comment on above: Performed By: #### C MP, URIC, PHOS, MG ####[facility] Irpmahboln[address] [place], [place] [address]Dr. Elba Anthony URINE T PROTEIN CREAT RATIOo n 12-03-2022 Protein (U) [Mass/Vol] 26.9 mg/dL Critically high <=12.0 [facility] Comment on above: Performed By: #### U RTPCR ####[facility] Dqppfdcumc[address] [place], [place] [address]Dr. Elba Anthony UR PROT CREAT RAT 0.33 Normal [facility] Comment on above: Performed By: #### U RTPCR ####[facility] Vesmmdwjhr9[address] [place], [place] [address]Dr. Elba Anthony URINE CREAT 82.74 mg/dL Normal 20.00-300.00 [facility] Comment on above: Performed By: #### U RTPCR ####[facility] Zdvkzkpcnd[address] [place], [place] [address]Dr. Elba Anthony VITAMIN D 25 OHon 12-03-2022 VIT D 25-OH 14.7 ng/mL Normal [facility] Comment on above: Performed By: #### V ITAD ####[facility] Lekbkiapxd[address] [place], [place] [address]Dr. Elba Anthony VIT D RANGES SEE BELOW Normal [facility] Comment on above: Result Comment: <20 ng/mL Vit D deficient 20 - <30 ng/mL Vit D insufficient 30 - 100 ng/mL Vit D sufficient >100 ng/mL Potential Toxicity Performed By: #### V ITAD ####[facility] Axxkgvjrdg7[address] [place], [place] [address]Dr. Elba Anthony US KIDNEYSon 11-27-2022 US KIDNEYS Normal [facility] PROF CHEM 8 (BAS METB)on Anion gap [Moles/Vol] 11.1 mmol/L Normal [facility] Comment on above: Performed By: #### B MP ####[facility] Tptyzekgbm[address] [place], [place] [address]Dr. Elba Anthony Calcium [Mass/Vol] 9.0 mg/dL Normal 8.5-10.1 [facility] Comment on above: Performed By: #### B MP ####[facility] Dgbnubeqdq[address] [place], [place] [address]Dr. Elba Anthony Chloride [Moles/Vol] 99 mmol/L Normal 98-107 [facility] Comment on above: Performed By: #### B MP ####[facility] Ssccwjfpqb[address] [place], [place] [address]Dr. Ebla Anthony CO2 [Moles/Vol] 30.3 mmol/L Normal 21.0-32.0 [facility] Comment on above: Performed By: #### B MP ####[facility] Uzxupbgmqa[address] [place], [place] [address]Dr. Elba Anthony Creatinine [Mass/Vol] 2.43 mg/dL Critically high 0.70-1.30 [facility] Comment on above: Performed By: #### B MP ####[facility] Cbhokvuusk[address] [place], [place] [address]Dr. Elba Anthony EGFR-AF ERITREAN 32 mL/min/1.73m2 Critically low >=60 [facility] Comment on above: Performed By: #### B MP ####[facility] Gsieexcgws[address] [place], [place] [address]Dr. Elba Anthony EGFR-NON AF ERITREAN 27 mL/min/1.73m2 Critically low >=60 [facility] Comment on above: Performed By: #### B MP ####[facility] Hghcybyabh2084 [place] [address]Dr. Elba Anthony Glucose [Mass/Vol] 142 mg/dL Critically high 74-106 [facility] Comment on above: Performed By: #### B MP ####[facility] Nsqoomdrni2539 [place] [address]Dr. Elba Anthony Potassium [Moles/Vol] 4.4 mmol/L Normal 3.5-5.1 [facility] Comment on above: Performed By: #### B MP ####[facility] Iybwnbcgdc[address] [place], [place] [address]Dr. Elba Anthony Sodium [Moles/Vol] 136 mmol/L Normal 136-145 [facility] Comment on above: Performed By: #### B MP ####[facility] Advbbjolit[address] [place], [place] [address]Dr. Elba Anthony Urea nitrogen [Mass/Vol] 60.0 mg/dL Critically high 7.0-18.0 [facility] Comment on above: Performed By: #### B MP ####[facility] Uvfkgkxuvk[address] [place], [place] [address]Dr. Elba Anthony Urea nitrogen/Creatinine [Mass ratio] 24.7 mg/mg Normal [facility] Comment on above: Performed By: #### B MP ####[facility] Lrxeebkwbt[address] [place], [place] [address]Dr. Elba Anthony CBC AUTO DIFFon 07-11-2022 BASO # 0.1 103/ul Normal 0.0-0.1 [facility] Comment on above: Performed By: #### C BC ####[facility] Ldfeqcakav[address] [place], [place] [address]Dr. Elba Anthony Basophils/100 WBC (Bld) 0.8 % Normal 0.2-2.0 [facility] Comment on above: Performed By: #### C BC ####[facility] Cflersaayl[address] [place], [place] [address]Dr. Elba Anthony EO # 0.9 103/ul Critically high 0.0-0.7 [facility] Comment on above: Performed By: #### C BC ####[facility] Gyabtqdvjm8878 [place] [address]Dr. Elba Anthony Eosinophils/100 WBC (Bld) 13.7 % Critically high 0.9-7.0 [facility] Comment on above: Performed By: #### C BC ####[facility] Cuvgoscmne4971 [place] [address]Dr. Elba Anthony Erythrocyte distribution width (RBC) [Ratio] 20.8 % Critically high 11.0-15.0 [facility] Comment on above: Performed By: #### C BC ####[facility] Edtednculr[address] [place], [place] [address]Dr. Elba Anthony Hematocrit (Bld) [Volume fraction] 35.3 % Critically low 42.0-54.0 [facility] Comment on above: Performed By: #### C BC ####[facility] Fynmpuemjs[address] [place], [place] [address]Dr. Elba Anthony Hemoglobin (Bld) [Mass/Vol] 11.5 g/dL Critically low 14.0-18.0 [facility] Comment on above: Performed By: #### C BC ####[facility] Qlrjzdfric[address] [place], [place] [address]Dr. Elba Anthony IG # 0.04 10e3/ul Critically high 0.00-0.03 [facility] Comment on above: Performed By: #### C BC ####[facility] Mcbqihuwrd4939 [place] [address]Dr. Elba Anthony IG % 0.6 % Critically high 0.0-0.5 [facility] Comment on above: Performed By: #### C BC ####[facility] Qbserusspw[address] [place], [place] [address]DrLatoya Elba Anthony LYMPH # 1.1 103/ul Critically low 1.2-3.8 [facility] Comment on above: Performed By: #### C BC ####[facility] Zhmgsplosk[address] [place], [place] [address]Dr. Elba Anthony Lymphocytes/100 WBC (Bld) 17.2 % Critically low 20.5-60.0 [facility] Comment on above: Performed By: #### C BC ####[facility] Obmrmwdgkg08[address] [place] [address]Dr. Elba Anthony MANUAL DIFF REQ NO Normal [facility] Comment on above: Performed By: #### C BC ####[facility] Odrwdepbie8258 [place] [address]Dr. Elba Anthony MCH (RBC) [Entitic mass] 27.9 pg Normal 25.9-34.0 [facility] Comment on above: Performed By: #### C BC ####[facility] Egumfrkkgs7929 [place] [address]Dr. Elba Anthony MCHC (RBC) [Mass/Vol] 32.6 g/dL Normal 29.9-35.2 [facility] Comment on above: Performed By: #### C BC ####[facility] Ddpajxshyh[address] [place], [place] [address]Dr. Elba Anthony MCV (RBC) [Entitic vol] 85.7 fL Normal 80.0-94.0 [facility] Comment on above: Performed By: #### C BC ####[facility] Nhqqoajqli[address] [place], [place] [address]Dr. Elba Anthony MONO # 0.8 103/ul Normal 0.3-0.8 [facility] Comment on above: Performed By: #### C BC ####[facility] Rqndrcyxyt[address] [place], [place] [address]Dr. Elba Anthony Monocytes/100 WBC (Bld) 13.0 % Critically high 1.7-12.0 [facility] Comment on above: Performed By: #### C BC ####[facility] Cptfktrxcz155[address] [place], [place] [address]DrLatoya Anthony NEUT # 3.4 103/ul Normal 1.4-6.5 [facility] Comment on above: Performed By: #### C BC ####[facility] Lbfmcjosps[address] [place], [place] [address]DrLatoya Anthony Neutrophils/100 WBC (Bld) 54.7 % Normal 43.0-75.0 [facility] Comment on above: Performed By: #### C BC ####[facility] Zlxfbgebzd2611 [place] [address]Dr. Elba Anthony Platelet mean volume (Bld) [Entitic vol] 9.5 fL Normal 9.5-13.5 [facility] Comment on above: Performed By: #### C BC ####[facility] Jmzveeiyyx9650 [place] [address]Dr. Elba Anthony PLT 206 103/ul Normal 150-450 [facility] Comment on above: Performed By: #### C BC ####[facility] Qfujdmejwc9911 [place] [address]Dr. Elba Anthony RBC 4.12 106/ul Critically low 4.70-6.10 [facility] Comment on above: Performed By: #### C BC ####[facility] Ytpjxvlzeo[address] [place], [place] [address]Dr. Elba Anthony WBC 6.2 103/ul Normal 4.0-11.0 [facility] Comment on above: Performed By: #### C BC ####[facility] Noofnydxgz8669 [place] [id number] Anthony PROF CHEM 8 (BAS METB)on Anion gap [Moles/Vol] 10.9 mmol/L Normal [facility] Comment on above: Performed By: #### B MP ####[facility] Jyieakpotd4381 [place] [address]DrLatoya Anthony Calcium [Mass/Vol] 8.9 mg/dL Normal 8.5-10.1 [facility] Comment on above: Performed By: #### B MP ####[facility] Syybbpttro6092 [place] [address]DrLatoya Anthony Chloride [Moles/Vol] 103 mmol/L Normal 98-107 [facility] Comment on above: Performed By: #### B MP ####[facility] Nneyozzhtv4163 [place] [id number] Anthony CO2 [Moles/Vol] 31.0 mmol/L Normal 21.0-32.0 [facility] Comment on above: Performed By: #### B MP ####[facility] Hxoycqfkki8[address] [place] [address]Dr. Elba Anthony Creatinine [Mass/Vol] 2.18 mg/dL Critically high 0.70-1.30 [facility] Comment on above: Performed By: #### B MP ####[facility] Vkgmanrjse2107 [place] [address]Dr. Elba Anthony EGFR-AF ERITREAN 36 mL/min/1.73m2 Critically low >=60 [facility] Comment on above: Performed By: #### B MP ####[facility] Wsltfagbch3856 [place] [address]Dr. Elba Anthony EGFR-NON AF ERITREAN 30 mL/min/1.73m2 Critically low >=60 [facility] Comment on above: Performed By: #### B MP ####[facility] Axqztwalqe[address] [place], [place] [address]Dr. Elba Anthony Glucose [Mass/Vol] 99 mg/dL Normal 74-106 [facility] Comment on above: Performed By: #### B MP ####[facility] Vntjfsdcqw[address] [place], [place] [address]Dr. Elba Anthony Potassium [Moles/Vol] 3.9 mmol/L Normal 3.5-5.1 [facility] Comment on above: Performed By: #### B MP ####[facility] Eovnzqgroz[address] [place], [place] [address]Dr. Elba Anthony Sodium [Moles/Vol] 141 mmol/L Normal 136-145 [facility] Comment on above: Performed By: #### B MP ####[facility] Pllzccjmyf6447 [place] [phone]. Elba Anthony Urea nitrogen [Mass/Vol] 40.0 mg/dL Critically high 7.0-18.0 [facility] Comment on above: Performed By: #### B MP ####[facility] Pyfnsbqbxr9791 [place] [phone]. Elba Anthony Urea nitrogen/Creatinine [Mass ratio] 18.3 mg/mg Normal [facility] Comment on above: Performed By: #### B MP ####[facility] Zbtkzlhspm2076 [place] [address]Dr. Elba Anthony XR CHEST 2 Von 07-11-2022 XR CHEST 2 V Normal [facility] BNPon 07-10-2022 Natriuretic peptide B (Bld) [Mass/Vol] 2542.0 pg/mL Critically high <=900.0 [facility] Comment on above: Performed By: #### H STROPN, BNP, CMP ####[facility] Eohjhwejol9349 [place] [phone]. Elba Anthony CARDIAC FADY 3-6on 2 CK [Catalytic activity/Vol] 40 U/L Normal 39-308 [facility] Comment on above: Performed By: #### C MREP ####[facility] [address]fowrycoue[address] [place], [place] [address]Dr. Elba Anthony CK.MB [Mass/Vol] 0.92 ng/mL Normal <=3.60 [facility] Comment on above: Performed By: #### C MREP ####[facility] [address]mcfnvshb[address] [place], [place] [address]Dr. Elba Anthony HSTROP 49.6 pg/mL Normal 4.0-76.1 [facility] Comment on above: Result Comment: CUT- OFF POINTS HAVE BEEN ESTABLISHED BASED ON THE FOURTH UNIVERSAL DEFINITIONS OF MYOCARDIALINFARCTION. THE UPPER REFERENCE LIMIT (URL) OF TROPONIN, DEFINED THE 99TH PERCENTILE OFcTnI DISTRIBUTION IN A REFERENCE POPULATION, HAS BEEN CONFIRMED THE DECISION THRESHOLDFOR ME DIAGNOSIS. Performed By: #### C MREP ####[facility] [address]jowcxw[address] [place], [place] [address]Dr. Elba Anthony CK [Catalytic activity/Vol] 39 U/L Normal 39-308 [facility] Comment on above: Performed By: #### C MREP ####[facility] Lempogcnmb4428 [place] [phone]. Elba Anthony CK.MB [Mass/Vol] 0.76 ng/mL Normal <=3.60 [facility] Comment on above: Performed By: #### C MREP ####[facility] Gtqnhoucpo2431 [place] [phone]. Elba Anthony HSTROP 47.3 pg/mL Normal 4.0-76.1 [facility] Comment on above: Result Comment: CUT- OFF POINTS HAVE BEEN ESTABLISHED BASED ON THE FOURTH UNIVERSAL DEFINITIONS OF MYOCARDIALINFARCTION. THE UPPER REFERENCE LIMIT (URL) OF TROPONIN, DEFINED THE 99TH PERCENTILE OFcTnI DISTRIBUTION IN A REFERENCE POPULATION, HAS BEEN CONFIRMED THE DECISION THRESHOLDFOR ME DIAGNOSIS. Performed By: #### C MREP ####[facility] [address]xy[address]kqgtu[address] [place], [place] [address]Dr. Elab Raj CBC AUTO DIFFon 07-10-2022 BASO # 0.1 103/ul Normal 0.0-0.1 [facility] Comment on above: Performed By: #### C BC ####[facility] Spxjtqdaby[address] [place], [place] [address]Dr. Elba Anthony Basophils/100 WBC (Bld) 1.1 % Normal 0.2-2.0 [facility] Comment on above: Performed By: #### C BC ####[facility] Jnccsnxyji[address] [place], [place] [address]Dr. Elba Anthony EO # 0.6 103/ul Normal 0.0-0.7 [facility] Comment on above: Performed By: #### C BC ####[facility] Lopyqcrwxk[address] [place], [place] [address]Dr. Elba Anthony Eosinophils/100 WBC (Bld) 8.9 % Critically high 0.9-7.0 [facility] Comment on above: Performed By: #### C BC ####[facility] [address]ihvenpmgq[address] [place], [place] [address]Dr. Elba Anthony Erythrocyte distribution width (RBC) [Ratio] 21.1 % Critically high 11.0-15.0 [facility] Comment on above: Performed By: #### C BC ####[facility] Hkwiwtyyup[address] [place], [place] [address]Dr. Elba Anthony Hematocrit (Bld) [Volume fraction] 39.1 % Critically low 42.0-54.0 [facility] Comment on above: Performed By: #### C BC ####[facility] Lkdjigirzl[address] [place] [address]Dr. Elba Anthony Hemoglobin (Bld) [Mass/Vol] 12.6 g/dL Critically low 14.0-18.0 [facility] Comment on above: Performed By: #### C BC ####[facility] Qxcmvgozbo[address] [place] [address]Dr. Elba Anthony IG # 0.04 10e3/ul Critically high 0.00-0.03 [facility] Comment on above: Performed By: #### C BC ####[facility] [address]ineijtxu[address] [place], [place] [address]Dr. Elba Anthony IG % 0.6 % Critically high 0.0-0.5 [facility] Comment on above: Performed By: #### C BC ####[facility] Btsu[address] [place], [place] [address]Dr. Nereydasiobhan Raj LYMPH # 0.9 103/ul Critically low 1.2-3.8 [facility] Comment on above: Performed By: #### C BC ####[facility] Ouz[address] [place], [place] [address]Dr. Elba Raj Lymphocytes/100 WBC (Bld) 13.8 % Critically low 20.5-60.0 [facility] Comment on above: Performed By: #### C BC ####[facility] Oxjaz[address] [place], [place] [address]Dr. Nereydasiobhan Anthony MANUAL DIFF REQ NO Normal [facility] Comment on above: Performed By: #### C BC ####[facility] Lobeuxqenj[address] [place], [place] [address]Dr. Elba Raj MCH (RBC) [Entitic mass] 27.5 pg Normal 25.9-34.0 [facility] Comment on above: Performed By: #### C BC ####[facility] Iuqaj[address]cb[address] [place], [place] [address]Dr. Elba Anthony MCHC (RBC) [Mass/Vol] 32.2 g/dL Normal 29.9-35.2 [facility] Comment on above: Performed By: #### C BC ####[facility] [address] [place] [id number]. Elba Anthony MCV (RBC) [Entitic vol] 85.2 fL Normal 80.0-94.0 [facility] Comment on above: Performed By: #### C BC ####[facility] [address]thcvnfwn[address] [place] [id number]. Elba Anthony MONO # 0.9 103/ul Critically high 0.3-0.8 [facility] Comment on above: Performed By: #### C BC ####[facility] [address]dmp[address]bc[address] [place] [address]Dr. Elba Anthony Monocytes/100 WBC (Bld) 14.0 % Critically high 1.7-12.0 [facility] Comment on above: Performed By: #### C BC ####[facility] [address]ftms[address] [place], [place] [address]Dr. Elba Anthony NEUT # 4.1 103/ul Normal 1.4-6.5 [facility] Comment on above: Performed By: #### C BC ####[facility] Pnh[address] [place], [place] [address]Dr. Elba Anthony Neutrophils/100 WBC (Bld) 61.6 % Normal 43.0-75.0 [facility] Comment on above: Performed By: #### C BC ####[facility] Qmmpw[address]deh[address] [place], [place] [address]Dr. Elba Anthony Platelet mean volume (Bld) [Entitic vol] 10.1 fL Normal 9.5-13.5 [facility] Comment on above: Performed By: #### C BC ####[facility] Thezs[address]hiy[address] [place], [place] [address]Dr. Elba Raj PLT 223 103/ul Normal 150-450 [facility] Comment on above: Performed By: #### C BC ####[facility] Z[address]lvp[address] [place] [id number]. Elba Raj RBC 4.59 106/ul Critically low 4.70-6.10 [facility] Comment on above: Performed By: #### C BC ####[facility] [address]we[address]qc[address] [place] [id number]. Elba Anthony WBC 6.7 103/ul Normal 4.0-11.0 [facility] Comment on above: Performed By: #### C BC ####[facility] G[address]rsyaku[address] [place] [phone]. Elba Raj Covid-19 PCR (CVDTB)on SARS-CoV-2 (COVID-19) RNA ELZIABETH+probe Ql (Unsp spec) Not detected Normal NOT DETECTED [facility] Comment on above: Result Comment: When [...] for this test is supported by the [place] of Health and Human Service's declaration that [...] be used). Performed By: #### C VDTBH ####[facility] Wnasvbmisn[address] [place] [address]Dr. Elba Raj ER URINE PROFILEon 2 Bilirubin Ql (U) Negative Normal NEGATIVE [facility] Comment on above: Performed By: #### E RUR ####[facility] Q[address] [place], [place] [address]Dr. Elba Anthony Clarity (U) CLEAR Normal CLEAR [facility] Comment on above: Performed By: #### E RUR ####[facility] Ksp[address]vduxd[address] [place] [address]Dr. Elba Anthony Color (U) LT. YELLOW Normal YELLOW [facility] Comment on above: Performed By: #### E RUR ####[facility] Cfp[address]ot[address] [place], [place] [address]Dr. Elba Anthony ERUAHD A micrscopic examina tion will be performed if indicated. Normal [facility] Comment on above: Performed By: #### E RUR ####[facility] Mkexomzjof[address] [place], [place] [address]Dr. Elba Anthony Glucose Ql (U) Negative Normal NEGATIVE [facility] Comment on above: Performed By: #### E RUR ####[facility] Xejyeyiqir[address] [place], [place] [address]Dr. Elba Anthony Hemoglobin Ql (U) Negative Normal NEGATIVE [facility] Comment on above: Performed By: #### E RUR ####[facility] Wepbitopvk[address] [place], [place] [address]Dr. Elba Anthony Ketones Ql (U) Negative Normal NEGATIVE [facility] Comment on above: Performed By: #### E RUR ####[facility] M[address]ilsqhh[address] [place], [place] [address]Dr. Elba Anthony LEUKOCYTES Negative Normal NEGATIVE [facility] Comment on above: Performed By: #### E RUR ####[facility] Aiedmmboqq[address] [place], [place] [address]Dr. Elba Anthony Nitrite Ql (U) Negative Normal NEGATIVE [facility] Comment on above: Performed By: #### E RUR ####[facility] Omnyscdzks[address] [place], [place] [address]Dr. Elba Anthony pH (U) 7.0 [pH] Normal 5-9 [facility] Comment on above: Performed By: #### E RUR ####[facility] Mgtruazsck[address] [place], [place] [address]DrLatoya Anthony SPEC GRAVITY 1.010 Normal 1.005-<=1.02 5 [facility] Comment on above: Performed By: #### E RUR ####[facility] Zvhcech[address] [place], [place] [address]Dr. Elba Anthony UA PROTEIN Negative Normal NEGATIVE/ TRACE [facility] Comment on above: Performed By: #### E RUR ####[facility] Owmgirnkui[address] [place] [address]Dr. Elba Anthony UR MICRO IND NOT INDICATED Normal [facility] Comment on above: Performed By: #### E RUR ####[facility] Lexgttiogp[address]37 [place] [address]Dr. Elba Anthony Urobilinogen Qn (U) 0.2 {Caden'U}/dL Normal 0.2 - 1. 0 [facility] Comment on above: Performed By: #### E RUR ####[facility] Cplwuhucwh[address] [place], [place] [address]Dr. Elba Anthony PROF 14(COMP METB)on 022 Albumin [Mass/Vol] 3.3 g/dL Critically low 3.4-5.0 [facility] Comment on above: Performed By: #### H STROPN, BNP, CMP ####[facility] [address] [place] [address]Dr. Elba Anthony Albumin/Globulin [Mass ratio] 0.8 {ratio} Normal [facility] Comment on above: Performed By: #### H STROPN, BNP, CMP ####[facility] Dvurtrjcmk[address] [place] [address]Dr. Elba Anthony ALP [Catalytic activity/Vol] 114 U/L Normal 46-116 [facility] Comment on above: Performed By: #### H STROPN, BNP, CMP ####[facility] P[address]qfyvgbz[address] [place] [address]Dr. Elba Anthony ALT [Catalytic activity/Vol] 23 U/L Normal 16-63 [facility] Comment on above: Performed By: #### H STROPN, BNP, CMP ####[facility] Srkpnctlwy6[address] [place] [address]Dr. Elba Anthony Anion gap [Moles/Vol] 9.5 mmol/L Normal [facility] Comment on above: Performed By: #### H STROPN, BNP, CMP ####[facility] Jpqsuzxhpe[address] [place] [address]Dr. Elba Anthony AST [Catalytic activity/Vol] 32 U/L Normal 15-37 [facility] Comment on above: Performed By: #### H STROPN, BNP, CMP ####[facility] Zrttiuwpwu4[address] [place] [address]Dr. Elba Anthony Bilirubin [Mass/Vol] 0.7 mg/dL Normal 0.2-1.0 [facility] Comment on above: Performed By: #### H STROPN, BNP, CMP ####[facility] Gpcifhwqbi[address] [place] [address]Dr. Elba Anthony Calcium [Mass/Vol] 9.1 mg/dL Normal 8.5-10.1 [facility] Comment on above: Performed By: #### H STROPN, BNP, CMP ####[facility] Yzxkuhghqu[address] [place], [place] [address]Dr. Elba Anthony Chloride [Moles/Vol] 99 mmol/L Normal 98-107 [facility] Comment on above: Performed By: #### H STROPN, BNP, CMP ####[facility] Xtiizayolj[address] [place] [address]Dr. Elba Anthony CO2 [Moles/Vol] 33.2 mmol/L Critically high 21.0-32.0 [facility] Comment on above: Performed By: #### H STROPN, BNP, CMP ####[facility] Esp[address]nywpz[address] [place], [place] [address]Dr. Elba Anthony Creatinine [Mass/Vol] 2.31 mg/dL Critically high 0.70-1.30 [facility] Comment on above: Performed By: #### H STROPN, BNP, CMP ####[facility] Olck[address]akd[address] [place] [address]Dr. Elba Anthony EGFR-AF ERITREAN 34 mL/min/1.73m2 Critically low >=60 [facility] Comment on above: Performed By: #### H STROPN, BNP, CMP ####[facility] Amjftewykr[address] [place] [address]Dr. Elba Anthony EGFR-NON AF ERITREAN 28 mL/min/1.73m2 Critically low >=60 [facility] Comment on above: Performed By: #### H STROPN, BNP, CMP ####[facility] Humpxutdbr[address] [place] [address]Dr. Elba Anthony Globulin (S) [Mass/Vol] 4.3 g/dL Normal [facility] Comment on above: Performed By: #### H STROPN, BNP, CMP ####[facility] Ayfnzxnsvx[address] [place] [address]Dr. Elba Anthony Glucose [Mass/Vol] 98 mg/dL Normal 74-106 [facility] Comment on above: Performed By: #### H STROPN, BNP, CMP ####[facility] Cczyfnuwge[address] [place] [address]Dr. Elba Anthony Potassium [Moles/Vol] 4.7 mmol/L Normal 3.5-5.1 [facility] Comment on above: Performed By: #### H STROPN, BNP, CMP ####[facility] [address]jcj[address] [place], [place] [address]Dr. Elba Anthony Protein [Mass/Vol] 7.6 g/dL Normal 6.4-8.2 [facility] Comment on above: Performed By: #### H STROPN, BNP, CMP ####[facility] [address]cpuq[address] [place], [place] [address]Dr. Elba Anthony Sodium [Moles/Vol] 137 mmol/L Normal 136-145 [facility] Comment on above: Performed By: #### H STROPN, BNP, CMP ####[facility] Z[address]tesrvkta[address] [place] [address]Dr. Elba Anthony Urea nitrogen [Mass/Vol] 47.0 mg/dL Critically high 7.0-18.0 [facility] Comment on above: Performed By: #### H STROPN, BNP, CMP ####[facility] [address] [place] [address]Dr. Elba Anthony Urea nitrogen/Creatinine [Mass ratio] 20.3 mg/mg Normal [facility] Comment on above: Performed By: #### H STROPN, BNP, CMP ####[facility] [address]xmxtb[address] [place] [id number]. Elba Anthony PROTIMEon 07-10-2022 INR Coag (PPP) [Relative time] 1.07 {INR} Normal [facility] Comment on above: Performed By: #### P T, PTT ####[facility] [address]tx[address] [place] [address]Dr. Elba Anthony INR GUIDELINES SEE BELOW Normal [facility] Comment on above: Result Comment: FUAD RED INR: 2.0 - 3.0 CONDITIONS NOT LISTED BELOW 2.5 - 3.5 FOR PROSTHETIC HEART VALVE REPLACEMENT 2.5 - 3.5 RECURRENT THROMBOSIS Performed By: #### P T, PTT ####[facility] Zmpdexdpds[address] [place] [address]Dr. Elba Anthony PT Coag (PPP) [Time] 11.5 s Normal 9.0-11.6 [facility] Comment on above: Performed By: #### P T, PTT ####[facility] F[address]ouu[address] [place] [address]Dr. Elba Anthony PTTon 07-10-2022 aPTT Coag (Bld) [Time] 34.7 s Normal 22.3-36.2 [facility] Comment on above: Performed By: #### P T, PTT ####[facility] Qkphwymjch[address] [place] [address]Dr. Elba Anthony TROPONIN, HIGH SENSITIVITYon 07-10-2022 HSTROP 45.2 pg/mL Normal 4.0-76.1 [facility] Comment on above: Result Comment: CUT- OFF POINTS HAVE BEEN ESTABLISHED BASED ON THE FOURTH UNIVERSAL DEFINITIONS OF MYOCARDIALINFARCTION. THE UPPER REFERENCE LIMIT (URL) OF TROPONIN, DEFINED THE 99TH PERCENTILE OFcTnI DISTRIBUTION IN A REFERENCE POPULATION, HAS BEEN CONFIRMED THE DECISION THRESHOLDFOR ME DIAGNOSIS. Performed By: #### H STROPN, BNP, CMP ####[facility] Wq[address]fczs[address] [place] [address]Dr. Elba Anthony XR CHEST 1 Von 07-10-2022 XR CHEST 1 V Normal [facility] US venous duplex LE BIon US venous duplex LE BI [facility] [place] [address] [place] [address] Ultrasound Report Signed Patient: Man Patel MR#: [id number] : 1950 Acct:[id number] Age/Sex: 72 / M ADM Date: 06/27/22 Loc: ER Room: Type: [facility] ER Attending Dr: Ordering Provider: [...] Balwinder Watson MD06/28/2022 8:49 AM Dictation Location: [place] [address] Tech: Mayra Henry Transcribed By: [facility] 06/28/22848 Dictated By: Balwinder Watson MD 06/28/22848 Signed By: 06/28/22848 Normal [facility] Activated partial thrombopla stin time (aPTT) in platelet poor plasma by coagulation aOrdered By: Melva Owusu on 06-27-2022 aPTT Coag (PPP) [Time] 36.4 s 25.1-36.5 [facility] Albumin [Mass/volume] in Ser um or PlasmaOrdered By: Melva Owusu on 06-27-2022 Albumin [Mass/Vol] 3.1 g/dL 3.2-5.5 [facility] B-Type Natriuretic Peptideon 06-27-2022 Natriuretic peptide B (Bld) [Mass/Vol] 367.0 pg/mL High 5-100 [facility] Comment on above: Result Comment: PERF ORMED BY: [place] [address] GARCIA M.D. Performed By: #### S OFIANEG, COVID-19 JOSE #### [address] Basophils Auto (Bld) [#/Vol] Ordered By: Melva Owusu on 06-27-2022 Basophils (Bld) [#/Vol] 0.0 10*3/uL 0.0-0.2 [facility] Basophils/100 WBC Auto (Bld) Ordered By: Melva [facility] on 06-27-2022 Basophils/100 WBC (Bld) 0.6 % . [facility] Bilirubin Test strip Ql (U)O rdered By: Melvavance Owusu on 06-27-2022 Bilirubin Ql (U) Negative Negative [facility] Blood Cultureon 06-27-2022 Bacteria identified Cx Nom (Bld) NO GROWTH 5 DAYS PERFORMED BY: [place] [address] GARCIA M.D. [facility] Comment on above: Performed By: #### C UBLD, LACTIC #### [address] Bacteria identified Cx Nom (Bld) NO GROWTH 5 DAYS PERFORMED BY: [place] [address] GARCIA M.D. [facility] Comment on above: Performed By: #### C UBLD, LACTIC #### [facility] [address] [place] [address] COVID-19 Antigenon 2 COVID-19 Antigen Healthcare Worker?: [...] developed and its performance characteristic determined by [facility] and validated at [facility]. This test has not been FDA cleared [...] for SARS Antigen by MORIAH PERFORMED BY: [place] [address] GARCIA M.D. Normal [facility] Comment on above: Performed By: #### S JORGE, COVID-19 JOSE #### [address] COVID-19 SOFIAOrdered By: Fito Chavarria on 06-27-2022 SARS-CoV+SARS-CoV-2 (COVID-19) Ag IA.rapid Ql (Resp) Negative Negative [facility] Comment on above: This is a duplicate Jose SARS Antigen (MORIAH) result to be used for statistical tracking purpose only. Coagulation Profileon 2021 aPTT Coag (Bld) [Time] 36.4 s Normal 25.1-36.5 [facility] Comment on above: Result Comment: PERF ORMED BY: [place] [address] GARCIA M.D. Performed By: #### S OFCATALINA COVID-19 JOSE #### [address] INR Coag (PPP) [Relative time] 1.5 {INR} Normal [facility] Comment on above: Result Comment: INR Therapeutic [...] By: #### S OFCATALINA COVID-19 JOSE #### [place] [address] [place] PT Coag (PPP) [Time] 17.3 s High 9.0-12.9 [facility] Comment on above: Performed By: #### S OFCATALINA COVID-19 JOSE #### [place] [address] [place] Color Auto (U)Ordered By: Lisa Owusu on 06-27-2022 Color (U) Yellow Yellow [facility] Complete Blood Count Auto Di ffon 06-27-2022 Basophils (Bld) [#/Vol] 0.0 10*3/uL Normal 0.0-0.2 [facility] Comment on above: Result Comment: PERF ORMED BY: [place] [address] GARCIA M.D. Performed By: #### B CLEARING SUPERVISOR, CBC, PP, CMP #### [place] [address] [place] Basophils/100 WBC (Bld) 0.6 % Normal . [facility] Comment on above: Performed By: #### B CLEARING SUPERVISOR, CBC, PP, CMP #### [facility] [address] Eosinophils (Bld) [#/Vol] 0.6 10*3/uL High 0.0-0.45 [facility] Comment on above: Performed By: #### B CLEARING SUPERVISOR, CBC, PP, CMP #### [address] Eosinophils/100 WBC (Bld) 9.4 % Normal . [facility] Comment on above: Performed By: #### B CLEARING SUPERVISOR, CBC, PP, CMP #### [address] Erythrocyte distribution width (RBC) [Ratio] 24.6 % High 12.0-14.8 [facility] Comment on above: Performed By: #### B CLEARING SUPERVISOR, CBC, PP, CMP #### [address] Hematocrit (Bld) [Volume fraction] 39.7 % Normal 38.8-50.0 [facility] Comment on above: Performed By: #### B CLEARING SUPERVISOR, CBC, PP, CMP #### [address] Hemoglobin (Bld) [Mass/Vol] 12.9 g/dL Low 13.0-17.0 [facility] Comment on above: Performed By: #### B CLEARING SUPERVISOR, CBC, PP, CMP #### [address] Lymphocytes (Bld) [#/Vol] 0.6 10*3/uL Low 1.00-4.8 [facility] Comment on above: Performed By: #### B CLEARING SUPERVISOR, CBC, PP, CMP #### [address] Lymphocytes/100 WBC (Bld) 9.3 % Normal . [facility] Comment on above: Performed By: #### B CLEARING SUPERVISOR, CBC, PP, CMP #### [address] MCH (RBC) [Entitic mass] 26.8 pg Low 27.5-35.2 [facility] Comment on above: Performed By: #### B CLEARING SUPERVISOR, CBC, PP, CMP #### [address] MCV (RBC) [Entitic vol] 82.7 fL Low 83.5-101 [facility] Comment on above: Performed By: #### B CLEARING SUPERVISOR, CBC, PP, CMP #### [address] Mean Corpuscular HGB Conc 32.4 g/dL Low 32.5-35.6 [facility] Comment on above: Performed By: #### B CLEARING SUPERVISOR, CBC, PP, CMP #### [address] Monocytes (Bld) [#/Vol] 0.6 10*3/uL Normal 0.0-0.8 [facility] Comment on above: Performed By: #### B CLEARING SUPERVISOR, CBC, PP, CMP #### [address] Monocytes/100 WBC (Bld) 9.4 % Normal . [facility] Comment on above: Performed By: #### B CLEARING SUPERVISOR, CBC, PP, CMP #### [address] Neutrophils (Bld) [#/Vol] 4.7 10*3/uL Normal 1.8-7.7 [facility] Comment on above: Performed By: #### B CLEARING SUPERVISOR, CBC, PP, CMP #### [address] Neutrophils/100 WBC (Bld) 71.3 % Normal . [facility] Comment on above: Performed By: #### B CLEARING SUPERVISOR, CBC, PP, CMP #### [address] Nucleated RBC/100 WBC (Bld) [Ratio] 0.0 % Normal 0-0.5 [facility] Comment on above: Performed By: #### B CLEARING SUPERVISOR, CBC, PP, CMP #### [place] [address] [place] Platelet mean volume (Bld) [Entitic vol] 8.0 fL Normal 6.6-10.1 [facility] Comment on above: Performed By: #### B CLEARING SUPERVISOR, CBC, PP, CMP #### [facility] [address] Platelets (Bld) [#/Vol] 163 10*3/uL Normal 150-450 [facility] Comment on above: Performed By: #### B CLEARING SUPERVISOR, CBC, PP, CMP #### [address] RBC (Bld) [#/Vol] 4.80 10*6/uL Normal 3.90-5.60 [facility] Comment on above: Performed By: #### B CLEARING SUPERVISOR, CBC, PP, CMP #### [address] WBC (Bld) [#/Vol] 6.5 10*3/uL Normal 4.5-11.0 [facility] Comment on above: Performed By: #### B CLEARING SUPERVISOR, CBC, PP, CMP #### [address] Comprehensive Metabolic Pane jeff 06-27-2022 Albumin [Mass/Vol] 3.1 g/dL Low 3.2-5.5 [facility] Comment on above: Performed By: #### B CLEARING SUPERVISOR, CBC, PP, CMP #### [address] Albumin/Globulin [Mass ratio] 0.8 {ratio} Normal [facility] Comment on above: Performed By: #### B CLEARING SUPERVISOR, CBC, PP, CMP #### [address] ALP [Catalytic activity/Vol] 98 U/L High 32-92 [facility] Comment on above: Performed By: #### B CLEARING SUPERVISOR, CBC, PP, CMP #### [address] ALT [Catalytic activity/Vol] 28 U/L Normal 10-60 [facility] Comment on above: Performed By: #### B CLEARING SUPERVISOR, CBC, PP, CMP #### [facility] [address] Anion gap [Moles/Vol] 15.0 mmol/L Normal 6.0-15.0 [facility] Comment on above: Performed By: #### B CLEARING SUPERVISOR, CBC, PP, CMP #### [facility] [address] AST [Catalytic activity/Vol] 32 U/L Normal 10-42 [facility] Comment on above: Performed By: #### B CLEARING SUPERVISOR, CBC, PP, CMP #### [facility] [address] Bilirubin [Mass/Vol] 0.9 mg/dL Normal 0.3-1.2 [facility] Comment on above: Performed By: #### B CLEARING SUPERVISOR, CBC, PP, CMP #### [facility] [address] Calcium [Mass/Vol] 9.4 mg/dL Normal 8.2-10.2 [facility] Comment on above: Performed By: #### B CLEARING SUPERVISOR, CBC, PP, CMP #### [facility] [address] Chloride [Moles/Vol] 96 mmol/L Normal 95-114 [facility] Comment on above: Performed By: #### B CLEARING SUPERVISOR, CBC, PP, CMP #### [facility] [address] [place] [address] [place] CO2 [Moles/Vol] 28.8 mmol/L Normal 22.0-30.0 [facility] Comment on above: Performed By: #### B CLEARING SUPERVISOR, CBC, PP, CMP #### [facility] [address] [place] [address] [place] Creatinine [Mass/Vol] 2.48 mg/dL High 0.64-1.27 [facility] Comment on above: Performed By: #### B CLEARING SUPERVISOR, CBC, PP, CMP #### [facility] [address] [place] [address] [place] Creatinine Clr Calc Pharmacy 33.36 Normal [facility] Comment on above: Result Comment: PERF ORMED BY: [place] [address] GARCIA M.D. Performed By: #### B CLEARING SUPERVISOR, CBC, PP, CMP #### [address] Estimated GFR ( Andra 31 [facility] Comment on above: Result Comment: GFR estimated reference range: According to KDOQI guidelines, <60 ml/min/1.73m2 is sufficient to diagnose a patient with chronic kidney disease. Performed By: #### B CLEARING SUPERVISOR, CBC, PP, CMP #### [address] Estimated GFR (Non- Am 26 [facility] Comment on above: Performed By: #### B CLEARING SUPERVISOR, CBC, PP, CMP #### [address] Globulin (S) [Mass/Vol] 4.1 g/dL [facility] Comment on above: Performed By: #### B CLEARING SUPERVISOR, CBC, PP, CMP #### [address] Glucose [Mass/Vol] 128 mg/dL High 70-100 [facility] Comment on above: Result Comment: [place] Glucose Reference Range is dependent on time and content of last meal. Glucose of more than 200 mg/dL in a nonstressed, ambulatory subject supports the diagnosis of Diabetes Mellitus. ADA recommended reference range Performed By: #### B CLEARING SUPERVISOR, CBC, PP, CMP #### [address] Potassium [Moles/Vol] 3.8 mmol/L Normal 3.5-5.1 [facility] Comment on above: Performed By: #### B CLEARING SUPERVISOR, CBC, PP, CMP #### [address] Protein [Mass/Vol] 7.2 g/dL Normal 6.1-7.9 [facility] Comment on above: Performed By: #### B CLEARING SUPERVISOR, CBC, PP, CMP #### [facility] [address] [place] [address] [place] Sodium [Moles/Vol] 136 mmol/L Normal 136-146 [facility] Comment on above: Performed By: #### B CLEARING SUPERVISOR, CBC, PP, CMP #### [facility] [address] [place] [address] [place] Urea nitrogen [Mass/Vol] 40 mg/dL High 9- [facility] Comment on above: Performed By: #### B CLEARING SUPERVISOR, CBC, PP, CMP #### [facility] [address] [place] [address] [place] Creatinine and Glomerular fi ltration rate.predicted panel (S/P/Bld)Ordered By: Melva Owusu on 06-27-2022 Creatinine [Mass/Vol] 2.48 mg/dL 0.64-1.27 [facility] Eosinophils Auto (Bld) [#/Vo l]Ordered By: Melva Owusu on 06-27-2022 Eosinophils (Bld) [#/Vol] 0.6 10*3/uL 0.0-0.45 [facility] Eosinophils/100 WBC Auto (Bl d)Ordered By: Melva Owusu on 06-27-2022 Eosinophils/100 WBC (Bld) 9.4 % . [facility] Erythrocyte distribution wid th Auto (RBC) [Ratio]Ordered By: Melva Owusu on 06-27-2022 Erythrocyte distribution width (RBC) [Ratio] 24.6 % 12.0-14.8 [facility] Estimated glomerular filtrat ion rate (GFR) non- AmericanOrdered By: Melva Owusu on 06-27-2022 GFR/1.73 sq M.predicted among non-blacks MDRD (S/P/Bld) [Vol rate/Area] 26 mL/Min [facility] Globulin Calc (S) [Mass/Vol] Ordered By: Melva Owusu on 06-27-2022 Globulin (S) [Mass/Vol] 4.1 g/dL [facility] Hematocrit Auto (Bld) [Volum e fraction]Ordered By: Melva Owusu on 06-27-2022 Hematocrit (Bld) [Volume fraction] 39.7 % 38.8-50.0 [facility] Hemoglobin [Mass/volume] in BloodOrdered By: Melva Owusu on 06-27-2022 Hemoglobin (Bld) [Mass/Vol] 12.9 g/dL 13.0-17.0 [facility] Ketones Auto test strip (U) [Mass/Vol]Ordered By: Melva Owusu on 06-27-2022 Ketones (U) [Mass/Vol] Negative Negative [facility] - Chemistry and C hemistry - challengeOrdered By: Melva Owusu on 06-27-2022 Natriuretic peptide B (Bld) [Mass/Vol] 367.0 pg/mL 5-100 [facility] Laboratory - CoagulationOrde red By: Melva Owusu on 06-27-2022 PT Coag (PPP) [Time] 17.3 s 9.0-12.9 [facility] - Hematology and Cell countsOrdered By: Melva Owusu on 06-27-2022 Nucleated RBC/100 WBC (Bld) [Ratio] 0.0 % 0-0.5 [facility] Lactic Acidon 06-27-2022 Lactate [Moles/Vol] 1.7 mmol/L Normal 0.5-2.2 [facility] Comment on above: Result Comment: PERF ORMED BY: [place] [address] [address] GARCIA M.D. Performed By: #### C UBLD, LACTIC #### [address] Leukocytes [#/volume] in Blo od by Automated countOrdered By: Melva Owusu on 06-27-2022 WBC (Bld) [#/Vol] 6.5 10*3/uL 4.5-11.0 [facility] Lymphocytes Auto (Bld) [#/Vo l]Ordered By: Melva Owusu on 06-27-2022 Lymphocytes (Bld) [#/Vol] 0.6 10*3/uL 1.00-4.8 [facility] Lymphocytes/100 WBC Auto (Bl d)Ordered By: Melva Owusu on 06-27-2022 Lymphocytes/100 WBC (Bld) 9.3 % . [facility] MCH Auto (RBC) [Entitic mass ]Ordered By: Melva Owusu on 06-27-2022 MCH (RBC) [Entitic mass] 26.8 pg 27.5-35.2 [facility] MCHC Auto (RBC) [Mass/Vol]Or dered By: Melva Owusu on 06-27-2022 MCHC (RBC) [Mass/Vol] 32.4 g/dL 32.5-35.6 [facility] MCV Auto (RBC) [Entitic vol] Ordered By: Melva Owusu on 06-27-2022 MCV (RBC) [Entitic vol] 82.7 fL 83.5-101 [facility] Monocytes Auto (Bld) [#/Vol] Ordered By: Melva Owusu on 06-27-2022 Monocytes (Bld) [#/Vol] 0.6 10*3/uL 0.0-0.8 [facility] Monocytes/100 WBC Auto (Bld) Ordered By: Melva Owusu on 06-27-2022 Monocytes/100 WBC (Bld) 9.4 % . [facility] Neutrophils Auto (Bld) [#/Vo l]Ordered By: Melva Owusu on 06-27-2022 Neutrophils (Bld) [#/Vol] 4.7 10*3/uL 1.8-7.7 [facility] Neutrophils/100 WBC Auto (Bl d)Ordered By: Melva Owusu on 06-27-2022 Neutrophils/100 WBC (Bld) 71.3 % . [facility] Nitrite Test strip Ql (U)Ord ered By: Melva Owusu on 06-27-2022 Nitrite Ql (U) Negative Negative [facility] No Panel InformationOrdered By: Melva Owusu on 06-27-2022 Estimated GFR () 31 mL/Min [facility] Comment on above: GFR estimated refere nce range: According to KDOQI guidelines, <60 ml/min/1.73m2 is sufficient to diagnose a patient with chronic kidney disease. Pharmacy Creatinine Clearance (Chem 33.36 [facility] No Panel InformationOrdered By: Balwinder Chavarria on 06-27-2022 SARS Antigen (LFIA) [facility] Platelet mean volume Auto (B ld) [Entitic vol]Ordered By: Melva Owusu on 06-27-2022 Platelet mean volume (Bld) [Entitic vol] 8.0 fL 6.6-10.1 [facility] Platelet poor plasma interna tional normalized ratio (INR) by coagulation assay (relatOrdered By: Melva Owusu on 06-27-2022 INR Coag (PPP) [Relative time] 1.5 {INR} [facility] Comment on above: INR Therapeutic Rang e [...] 06-27-2022 Platelets (Bld) [#/Vol] 163 10*3/uL 150-450 [facility] Protein Auto test strip (U) [Mass/Vol]Ordered By: Melva Owusu on 06-27-2022 Protein (U) [Mass/Vol] Negative Negative Fi [facility] Protein [Mass/volume] in Ser um or PlasmaOrdered By: Melva Owusu on 06-27-2022 Protein [Mass/Vol] 7.2 g/dL 6.1-7.9 [facility] RBC Auto (Bld) [#/Vol]Ordere d By: Melva Owusu on 06-27-2022 RBC (Bld) [#/Vol] 4.80 10*6/uL 3.90-5.60 [facility] Serum or plasma alanine [place] otransferase measurement without P-5'-P (enzymatic activiOrdered By: Melva Owusu on 06-27-2022 ALT No additional P-5'-P [Catalytic activity/Vol] 28 U/L 10-60 [facility] Serum or plasma albumin/glob ulin mass ratioOrdered By: Melva Owusu on 06-27-2022 Albumin/Globulin [Mass ratio] 0.8 {ratio} [facility] Serum or plasma alkaline mumtaz sphatase measurement (enzymatic activity/volume)Ordered By: Melva Owusu on 06-27-2022 ALP [Catalytic activity/Vol] 98 U/L 32-92 [facility] Serum or plasma anion gap de terminationOrdered By: Melva Owusu on 06-27-2022 Anion gap [Moles/Vol] 15.0 mmol/L 6.0-15.0 [facility] Serum or plasma aspartate am inotransferase measurement (enzymatic activity/volume)Ordered By: Melva Owusu on 06-27-2022 AST [Catalytic activity/Vol] 32 U/L 10-42 [facility] Serum or plasma calcium brii urement (mass/volume)Ordered By: Melva Owusu on 06-27-2022 Calcium [Mass/Vol] 9.4 mg/dL 8.2-10.2 [facility] Serum or plasma chloride edgar surement (moles/volume)Ordered By: Melva Owusu on 06-27-2022 Chloride [Moles/Vol] 96 mmol/L 95-114 [facility] Serum or plasma glucose brii urement (mass/volume)Ordered By: Melva Owusu on 06-27-2022 Glucose [Mass/Vol] 128 mg/dL 70-100 [facility] Comment on above: ADA recommended refe rence rangeRandom Glucose Reference Range is dependent on time and content of last meal. Glucose of more than 200 mg/dL in a nonstressed, ambulatory subject supports the diagnosis of Diabetes Mellitus. Serum or plasma potassium me asurement (moles/volume)Ordered By: Melva Owusu on 06-27-2022 Potassium [Moles/Vol] 3.8 mmol/L 3.5-5.1 [facility] Serum or plasma sodium measu rement (moles/volume)Ordered By: Melva Owusu on 06-27-2022 Sodium [Moles/Vol] 136 mmol/L 136-146 [facility] Serum or plasma total biliru bin measurement (mass/volume)Ordered By: Melva Kristenglendy on 06-27-2022 Bilirubin [Mass/Vol] 0.9 mg/dL 0.3-1.2 [facility] Serum or plasma total carbon dioxide measurement (moles/volume)Ordered By: Melva Kristenglendy on 06-27-2022 CO2 [Moles/Vol] 28.8 mmol/L 22.0-30.0 [facility] Serum or plasma urea nitroge n measurement (mass/volume)Ordered By: Melva Petersonmijose francisco on 06-27-2022 Urea nitrogen [Mass/Vol] 40 mg/dL 05-31 [facility] Jose Ag Negativeon 06-27-20 Jose Ag Negative Negative Normal Negative [facility] Comment on above: Result Comment: This is a duplicate Jose SARS Antigen (MORIAH) result to be used for statistical tracking purpose only. PERFORMED BY: [place] [address] [address] GARCIA M.D. Performed By: #### S JORGE COVID-19 JOSE #### [facility] [address] [place] [address] Specific gravity Auto test s trip (U) [Rel density]Ordered By: Melva Owusu on 06-27-2022 Specific gravity (U) [Rel density] 1.012 1.001-1.030 [facility] Urinalysison 06-27-2022 Appearance (U) Clear Normal Clear [facility] Comment on above: Order Comment: Name Collection Type:: Clean-Voided Midstream Performed By: #### U A #### [facility] [address] [place] [address] [place] Bilirubin,Urine Negative Normal Negative [facility] Comment on above: Order Comment: Name Collection Type:: Clean-Voided Midstream Performed By: #### U A #### [place] [address] [place] Color (U) Yellow Normal Yellow [facility] Comment on above: Order Comment: Name Collection Type:: Clean-Voided Midstream Performed By: #### U A #### [facility] [address] [place] [address] Glucose Ql (U) Normal Normal Normal [facility] Comment on above: Order Comment: Name Collection Type:: Clean-Voided Midstream Performed By: #### U A #### [facility] [address] [place] [address] Ketones Ql (U) Negative Normal Negative [facility] Comment on above: Order Comment: Name Collection Type:: Clean-Voided Midstream Performed By: #### U A #### [facility] [address] [place] [address] Leukocyte esterase Test strip Ql (U) Negative Normal Negative [facility] Comment on above: Order Comment: Name Collection Type:: Clean-Voided Midstream Performed By: #### U A #### [facility] [address] [place] [address] [place] Nitrite,Urine Negative Normal Negative [facility] Comment on above: Order Comment: Name Collection Type:: Clean-Voided Midstream Performed By: #### U A #### [facility] [address] [place] [address] Occult Blood,Urine Negative Normal Negative [facility] Comment on above: Order Comment: Name Collection Type:: Clean-Voided Midstream Result Comment: PERF ORMED BY: [place] [address] [address] GARCIA M.D. Performed By: #### U A #### [facility] [address] [place] [address] [place] pH (U) 6.0 [pH] Normal 5.0-9.0 [facility] Comment on above: Order Comment: Name Collection Type:: Clean-Voided Midstream Performed By: #### U A #### [facility] [address] [place] [address] [place] Protein,Urine Negative Normal Negative [facility] Comment on above: Order Comment: Name Collection Type:: Clean-Voided Midstream Performed By: #### U A #### [facility] [address] Specificy [place],Urine 1.012 Normal 1.001-1.030 [facility] Comment on above: Order Comment: Name Collection Type:: Clean-Voided Midstream Performed By: #### U A #### [facility] [address] [place] [address] [place] Urobilinogen,Urine Normal Normal Normal [facility] Comment on above: Order Comment: Name Collection Type:: Clean-Voided Midstream Performed By: #### U A #### [facility] [address] [place] [address] [place] Urine clarity by refractomet ry automatedOrdered By: Melva Owusu on 06-27-2022 Clarity Refractometry automated (U) Clear Clear [facility] Urine glucose measurement by automated test strip (mass/volume)Ordered By: Melva Owusu on 06-27-2022 Glucose Auto test strip (U) [Mass/Vol] Normal mg/dL Normal [facility] Urine hemoglobin detection b y automated test stripOrdered By: Melva Owusu on 06-27-2022 Hemoglobin Auto test strip Ql (U) Negative Negative [facility] Urine lactic acid measuremen tOrdered By: Melva Owusu on 06-27-2022 Lactate (U) [Moles/Vol] 1.7 mmol/L 0.5-2.2 [facility] Urine leukocyte esterase det ection by automated test stripOrdered By: Melva Owusu on 06-27-2022 Leukocyte esterase Auto test strip Ql (U) Negative Negative [facility] Urobilinogen Auto test strip (U) [Mass/Vol]Ordered By: Melva Owusu on 06-27-2022 Urobilinogen (U) [Mass/Vol] Normal mg/dL Normal [facility] XR chest 2V*on 06-27-2022 XR chest 2V* [facility] [place] [address] [place] [address] XRay Report Signed Patient: Man Patel MR#: [id number] : 1950 Acct:[id number] Age/Sex: 72 / M ADM Date: 06/27/22 Loc: ER Room: Type: [facility] ER Attending Dr: Copies to: [...] Cris Johnson M.D.06/27/2022 3:42 PM Dictation Location: [place] [address] Transcribed By: [facility] 06/27/221541 Dictated By: Cris Johnson MD 06/27/221539 Signed By: 06/27/221541 Normal [facility] pH Auto test strip (U)Ordere d By: Melva Owusu on 06-27-2022 pH (U) 6.0 [pH] 5.0-9.0 [facility] ECHOCARDIO M/2D COMPLETEon 1 ECHOCARDIO M/2D COMPLETE Normal [facility] BASIC METABOLIC PANELon 09-0 Calcium [Mass/Vol] 8.6 mg/dL Normal 8.6-10.3 [facility] Comment on above: Order Comment: Yes: Add to Previous draw if able Performed By: #### 5 0103 #### [facility] [address] [place] [address], [facility] Chloride [Moles/Vol] 97 mmol/L Low 98-107 [facility] Comment on above: Order Comment: Yes: Add to Previous draw if able Performed By: #### 5 0103 #### [facility] [address] [place] [address], [facility] CO2 [Moles/Vol] 30 mmol/L Normal 21-31 [facility] Comment on above: Order Comment: Yes: Add to Previous draw if able Performed By: #### 5 0103 #### [facility] [address] [place] [address], [facility] Creatinine [Mass/Vol] 2.14 mg/dL High 0.70-1.30 [facility] Comment on above: Order Comment: Yes: Add to Previous draw if able Performed By: #### 5 0103 #### [facility] [address] [place] [address], [facility] EGFR 32 ml/min/1.73sq m Abnormal >60 [facility] Comment on above: Order Comment: Yes: Add to Previous draw if able Result Comment: [facility]'s estimated glomerular filtration rate (eGFR) will [...] individuals. Performed By: #### 5 0103 #### [facility] [address] [place] [address], [place] Glucose [Mass/Vol] 90 mg/dL Normal 70-100 [facility] Comment on above: Order Comment: Yes: Add to Previous draw if able Performed By: #### 5 0103 #### [facility] [address] [place] [address], [place] Potassium [Moles/Vol] 3.7 mmol/L Normal 3.5-5.1 [facility] Comment on above: Order Comment: Yes: Add to Previous draw if able Performed By: #### 5 0103 #### [facility] [address] Sodium [Moles/Vol] 135 mmol/L Low 136-145 [facility] Comment on above: Order Comment: Yes: Add to Previous draw if able Performed By: #### 5 0103 #### [facility] [address] Urea nitrogen [Mass/Vol] 32 mg/dL High 7-25 [facility] Comment on above: Order Comment: Yes: Add to Previous draw if able Performed By: #### 5 0103 #### [facility] [address] [facility]. [address] *SARS-CoV-2 COVID-19on 05-07 SARS-CoV-2 (COVID-19) RNA ELIZABETH+probe Ql (Unsp spec) Detected Critically abnormal Not Detected [facility] Comment on above: Order Comment: The A ptima SARS-CoV-2 assay is a nucleic acid amplification testintended for the qualitative detection of RNA from SARS-CoV-2 isolatedand purified from nasopharyngeal (CLEARING SUPERVISOR), oropharyngeal (OP), nasal swab,sputum, and bronchoalveolar lavage (BAL) specimens from patients withsigns and symptoms of infection who are suspected of COVID-19.Results are for the identification of SARS-CoV-2 RNA. The SARS-CoV-2 RNAis generally detectable during the acute phase of infection.The Aptima SARS-CoV-2 Assay on the [employer] system isintended for use by laboratory personnel specifically instructed andtrained in the operation of the [employer] system. TheAptima SARS-CoV-2 assay is only [...] other viruses. Performed By: #### 3 1792 ####[facility] [facility] BASIC METABOLIC PANELon 08-3 -2021 Calcium [Mass/Vol] 8.4 mg/dL Low 8.6-10.3 [facility] Comment on above: Order Comment: No: D o not add to previous draw Performed By: #### 0 0071, [id number], 92003 ####[facility] [facility] Chloride [Moles/Vol] 97 mmol/L Low 98-107 [facility] Comment on above: Order Comment: No: D o not add to previous draw Performed By: #### 0 0071, 20288, 12907 ####[facility] [facility].[address] CO2 [Moles/Vol] 30 mmol/L Normal 21-31 [facility] Comment on above: Order Comment: No: D o not add to previous draw Performed By: #### 0 0071, 07982, 26583 ####[facility] [facility] Creatinine [Mass/Vol] 2.06 mg/dL High 0.70-1.30 [facility] Comment on above: Order Comment: No: D o not add to previous draw Performed By: #### 0 0071, 03306, 14642 ####[facility] [facility] EGFR 34 ml/min/1.73sq m Abnormal >60 [facility] Comment on above: Order Comment: No: D o not add to previous draw Result Comment: [facility]'s estimated glomerular filtration rate (eGFR) will [...] of individuals. Performed By: #### 0 0071, 06445, 87860 ####[facility] [facility] [place] [address], [facility] Glucose [Mass/Vol] 86 mg/dL Normal 70-100 [facility] Comment on above: Order Comment: No: D o not add to previous draw Performed By: #### 0 0071, 70067, 52693 ####[facility] [facility] [place] [address], [facility] Potassium [Moles/Vol] 3.7 mmol/L Normal 3.5-5.1 [facility] Comment on above: Order Comment: No: D o not add to previous draw Performed By: #### 0 0071, 22201, 29321 ####[facility] [facility] [place] [address], [facility] Sodium [Moles/Vol] 135 mmol/L Low 136-145 [facility] Comment on above: Order Comment: No: D o not add to previous draw Performed By: #### 0 0071, 72571, 89382 ####[facility] [facility] [place] [address], [facility] Urea nitrogen [Mass/Vol] 35 mg/dL High 7-25 [facility] Comment on above: Order Comment: No: D o not add to previous draw Performed By: #### 0 0071, 95793, 68124 ####[facility] [facility] [place] [address], [facility] CBC COMPLETE BLOOD COUNTon 0 8- Erythrocyte distribution width (RBC) [Ratio] 21.2 % High 11.5-15.0 [facility] Comment on above: Order Comment: No: D o not add to previous draw Performed By: #### 5 0608 #### [facility] [address] [place] [address], [facility] Hematocrit (Bld) [Volume fraction] 36.1 % Low 39.0-50.0 [facility] Comment on above: Order Comment: No: D o not add to previous draw Performed By: #### 5 0608 #### [facility] [address] [place] [address], [facility] Hemoglobin (Bld) [Mass/Vol] 10.4 g/dL Low 13.0-17.0 [facility] Comment on above: Order Comment: No: D o not add to previous draw Performed By: #### 5 0608 #### [facility] [address] [place] [address], [facility] MCH (RBC) [Entitic mass] 23.6 pg Low 27.0-33.0 [facility] Comment on above: Order Comment: No: D o not add to previous draw Performed By: #### 5 0608 #### [facility] [address] [place] [id number], [facility] MCHC (RBC) [Mass/Vol] 28.8 g/dL Low 32.0-35.0 [facility] Comment on above: Order Comment: No: D o not add to previous draw Performed By: #### 5 0608 #### [facility] [address] [place] [address], [facility] MCV (RBC) [Entitic vol] 81.9 fL Low 82.0-98.0 [facility] Comment on above: Order Comment: No: D o not add to previous draw Performed By: #### 5 0608 #### [facility] [address] [place] [address], [facility] Nucleated RBC/100 WBC (Bld) [Ratio] 0 % Normal 0-0 [facility] Comment on above: Order Comment: No: D o not add to previous draw Performed By: #### 5 0608 #### [facility] [address] [place] [address], [facility] H[facility] PLAT CNT 207 10*3/uL Normal 150-400 [facility] Comment on above: Order Comment: No: D o not add to previous draw Performed By: #### 5 0608 #### [facility] [address] [place] [address], [facility] RBC (Bld) [#/Vol] 4.41 10*6/uL Normal 4.20-5.70 [facility] Comment on above: Order Comment: No: D o not add to previous draw Performed By: #### 5 0608 #### [facility] [address] [place] [address], [facility] WBC (Bld) [#/Vol] 4.60 10*3/uL Normal 4.00-10.60 [facility] Comment on above: Order Comment: No: D o not add to previous draw Performed By: #### 5 0608 #### [facility] [address] [facility] [place] [address], [facility] MAGNESIUM BLOODon 05-07-2022 Magnesium [Mass/Vol] 2.3 mg/dL Normal 1.9-2.7 [facility] Comment on above: Order Comment: No: D o not add to previous draw Performed By: #### 0 0071, [id number], 52886 ####[facility] [place] [address], [facility] PHOSPHORUS BLOODon Phosphate [Mass/Vol] 2.6 mg/dL Normal 2.5-5.0 [facility] Comment on above: Order Comment: No: D o not add to previous draw Performed By: #### 0 0071, 48011, 80447 ####[facility] [place] [address], [facility] POC SARS COV2 ANTIGEN POSITI VEon 05-07-2022 POC SARS COV2 ANTIGEN POS Positive Critically abnormal NEGATIVE [facility] Comment on above: Result Comment: Posi tive results indicate the presence of viral antigens, but clinical correlation with patient history and other diagnostic information is necessary to determine infection status. Positive results do not rule out bacterial infection or co-infection with other viruses. The agent detected may not be the definite cause of disease. Laboratories within the [facility] and its territories are required to report all results to the appropriate public health authorities. The Clarity COVID-19 Antigen Rapid Test Cassette is a rapid chromatographic immunoassay intended for the qualitative detection of the nucleocapsid protein antigen from SARS-CoV-2 in direct nasopharyngeal swab (CLEARING [employer]PERVISOR) specimens from individuals who are suspected of [...] Accreditation. Performed By: #### 3 2045 #### [facility] [address] [facility] [address], [facility] BASIC METABOLIC PANELon 04-09 Calcium [Mass/Vol] 8.3 mg/dL Low 8.6-10.3 [facility] Comment on above: Order Comment: No: D o not add to previous draw Performed By: #### 7 0207 #### [facility] [address] [place] [address], [facility] Chloride [Moles/Vol] 99 mmol/L Normal 98-107 [facility] Comment on above: Order Comment: No: D o not add to previous draw Performed By: #### 7 0207 #### [facility] [address] [place] [address], [place] CO2 [Moles/Vol] 30 mmol/L Normal 21-31 [facility] Comment on above: Order Comment: No: D o not add to previous draw Performed By: #### 7 0207 #### [facility] [address] [place] [address], [facility] Creatinine [Mass/Vol] 2.08 mg/dL High 0.70-1.30 [facility] Comment on above: Order Comment: No: D o not add to previous draw Performed By: #### 7 0207 #### [facility] [address] [place] [address], [facility] EGFR 34 ml/min/1.73sq m Abnormal >60 [facility] Comment on above: Order Comment: No: D o not add to previous draw Result Comment: [facility]'s estimated glomerular filtration rate (eGFR) will [...] individuals. Performed By: #### 7 0207 #### [facility] [address] [place] [address], [facility] Glucose [Mass/Vol] 91 mg/dL Normal 70-100 [facility] Comment on above: Order Comment: No: D o not add to previous draw Performed By: #### 7 0207 #### [facility] [address] [place] [address], [facility] Potassium [Moles/Vol] 3.5 mmol/L Normal 3.5-5.1 [facility] Comment on above: Order Comment: No: D o not add to previous draw Performed By: #### 7 0207 #### [facility] [address] [place] [address], [place] Sodium [Moles/Vol] 137 mmol/L Normal 136-145 [facility] Comment on above: Order Comment: No: D o not add to previous draw Performed By: #### 7 0207 #### [facility] [address] [place] [address], [facility] Urea nitrogen [Mass/Vol] 36 mg/dL High 7-25 [facility] Comment on above: Order Comment: No: D o not add to previous draw Performed By: #### 7 0207 #### [facility] [address] [facility]. [address] TSH3 WITH REFLEX FT4on 05-06 TSH 3RD GENERATION 2.46 uIU/mL Normal 0.34-5.60 [facility] Comment on above: Performed By: #### 7 0207 #### [facility] [address] [facility]. [address] BASIC METABOLIC PANELon 04-09 Calcium [Mass/Vol] 7.9 mg/dL Low 8.6-10.3 [facility] Comment on above: Order Comment: Check Pacemaker/AICD Lead Position, Chest X-ray PA \EANDE\ LAT in Dept ;DO NOT lift affected arm above shoulder. S/P pacemaker/ICD implant. Verify lead placement Performed By: #### 0 0071 ####[facility] Chloride [Moles/Vol] 99 mmol/L Normal 98-107 [facility] Comment on above: Order Comment: Check Pacemaker/AICD Lead Position, Chest X-ray PA \EANDE\ LAT in Dept ;DO NOT lift affected arm above shoulder. S/P pacemaker/ICD implant. Verify lead placement Performed By: #### 0 0071 ####[facility] CO2 [Moles/Vol] 28 mmol/L Normal 21-31 [facility] Comment on above: Order Comment: Check Pacemaker/AICD Lead Position, Chest X-ray PA \EANDE\ LAT in Dept ;DO NOT lift affected arm above shoulder. S/P pacemaker/ICD implant. Verify lead placement Performed By: #### 0 0071 ####[facility] [place] [address], [facility] Creatinine [Mass/Vol] 2.11 mg/dL High 0.70-1.30 [facility] Comment on above: Order Comment: Check Pacemaker/AICD Lead Position, Chest X-ray PA \EANDE\ LAT in Dept ;DO NOT lift affected arm above shoulder. S/P pacemaker/ICD implant. Verify lead placement Performed By: #### 0 0071 ####[place] [address] [address] EGFR 33 ml/min/1.73sq m Abnormal >60 [facility] Comment on above: Order Comment: Check Pacemaker/AICD Lead Position, Chest X-ray PA \EANDE\ LAT in Dept ;DO NOT lift affected arm above shoulder. S/P pacemaker/ICD implant. Verify lead placement Result Comment: [facility]'s estimated glomerular filtration rate (eGFR) will [...] of individuals. Performed By: #### 0 0071 ####[facility] [place] [address], [facility] Glucose [Mass/Vol] 95 mg/dL Normal 70-100 [facility] Comment on above: Order Comment: Check Pacemaker/AICD Lead Position, Chest X-ray PA \EANDE\ LAT in Dept ;DO NOT lift affected arm above shoulder. S/P pacemaker/ICD implant. Verify lead placement Performed By: #### 0 0071 ####[facility] Potassium [Moles/Vol] 3.5 mmol/L Normal 3.5-5.1 [facility] Comment on above: Order Comment: Check Pacemaker/AICD Lead Position, Chest X-ray PA \EANDE\ LAT in Dept ;DO NOT lift affected arm above shoulder. S/P pacemaker/ICD implant. Verify lead placement Performed By: #### 0 0071 ####[address] Sodium [Moles/Vol] 137 mmol/L Normal 136-145 [facility] Comment on above: Order Comment: Check Pacemaker/AICD Lead Position, Chest X-ray PA \EANDE\ LAT in Dept ;DO NOT lift affected arm above shoulder. S/P pacemaker/ICD implant. Verify lead placement Performed By: #### 0 0071 ####[address] Urea nitrogen [Mass/Vol] 37 mg/dL High 7-25 [facility] Comment on above: Order Comment: Check Pacemaker/AICD Lead Position, Chest X-ray PA \EANDE\ LAT in Dept ;DO NOT lift affected arm above shoulder. S/P pacemaker/ICD implant. Verify lead placement Performed By: #### 0 0071 ####[address] CBC COMPLETE BLOOD COUNTon 0 - Erythrocyte distribution width (RBC) [Ratio] 21.2 % High 11.5-15.0 [facility] Comment on above: Order Comment: Unkno wn Performed By: #### 5 0608 ####[place] [address] [address] Hematocrit (Bld) [Volume fraction] 35.5 % Low 39.0-50.0 [facility] Comment on above: Order Comment: Unkno wn Performed By: #### 5 0608 ####[address] [place] [address], [place] Hemoglobin (Bld) [Mass/Vol] 10.5 g/dL Low 13.0-17.0 [facility] Comment on above: Order Comment: Unkno wn Performed By: #### 5 0608 ####[place] [address] MCH (RBC) [Entitic mass] 23.8 pg Low 27.0-33.0 [facility] Comment on above: Order Comment: Unkno wn Performed By: #### 5 0608 ####[address] MCHC (RBC) [Mass/Vol] 29.6 g/dL Low 32.0-35.0 [facility] Comment on above: Order Comment: Unkno wn Performed By: #### 5 0608 ####[address] MCV (RBC) [Entitic vol] 80.5 fL Low 82.0-98.0 [facility] Comment on above: Order Comment: Unkno wn Performed By: #### 5 0608 ####[address] Nucleated RBC/100 WBC (Bld) [Ratio] 0 % Normal 0-0 [facility] Comment on above: Order Comment: Unkno wn Performed By: #### 5 0608 ####[address] PLAT CNT 161 10*3/uL Normal 150-400 [facility] Comment on above: Order Comment: Unkno wn Performed By: #### 5 0608 ####[address] RBC (Bld) [#/Vol] 4.41 10*6/uL Normal 4.20-5.70 [facility] Comment on above: Order Comment: Unkno wn Performed By: #### 5 0608 ####[facility] [place] [address], [facility] WBC (Bld) [#/Vol] 4.71 10*3/uL Normal 4.00-10.60 [facility] Comment on above: Order Comment: Unkno wn Performed By: #### 5 0608 ####[facility] [facility].[address] BASIC METABOLIC PANELon 08-2 -2021 Calcium [Mass/Vol] 8.1 mg/dL Low 8.6-10.3 [facility] Comment on above: Order Comment: No: D o not add to previous draw Performed By: #### 3 2044 #### [facility] [address] [place] [address], [facility] Chloride [Moles/Vol] 97 mmol/L Low 98-107 [facility] Comment on above: Order Comment: No: D o not add to previous draw Performed By: #### 3 2044 #### [facility] [address] [place] [address], [facility] CO2 [Moles/Vol] 31 mmol/L Normal 21-31 [facility] Comment on above: Order Comment: No: D o not add to previous draw Performed By: #### 3 2044 #### [facility] [address] [place] [address], [facility] Creatinine [Mass/Vol] 1.98 mg/dL High 0.70-1.30 [facility] Comment on above: Order Comment: No: D o not add to previous draw Performed By: #### 3 2044 #### [facility] [address] [place] [address], [facility] EGFR 36 ml/min/1.73sq m Abnormal >60 [facility] Comment on above: Order Comment: No: D o not add to previous draw Result Comment: [facility]'s estimated glomerular filtration rate (eGFR) will [...] individuals. Performed By: #### 3 2044 #### [facility] [address] [place] [address], [facility] Glucose [Mass/Vol] 88 mg/dL Normal 70-100 [facility] Comment on above: Order Comment: No: D o not add to previous draw Performed By: #### 3 2044 #### [facility] [address] [place] [address], [facility] Potassium [Moles/Vol] 3.5 mmol/L Normal 3.5-5.1 [facility] Comment on above: Order Comment: No: D o not add to previous draw Performed By: #### 3 2044 #### [facility] [address] [place] [address], [facility] Sodium [Moles/Vol] 137 mmol/L Normal 136-145 [facility] Comment on above: Order Comment: No: D o not add to previous draw Performed By: #### 3 2044 #### [facility] [address] [place] [address], [facility] Urea nitrogen [Mass/Vol] 35 mg/dL High 7-25 [facility] Comment on above: Order Comment: No: D o not add to previous draw Performed By: #### 3 2044 #### [facility] [address] [place] [address], [facility] CBC COMPLETE BLOOD COUNTon 0 8- Erythrocyte distribution width (RBC) [Ratio] 21.2 % High 11.5-15.0 [facility] Comment on above: Order Comment: No: D o not add to previous draw Performed By: #### 5 0608 ####[facility] Hematocrit (Bld) [Volume fraction] 34.6 % Low 39.0-50.0 [facility] Comment on above: Order Comment: No: D o not add to previous draw Performed By: #### 5 0608 ####[facility] [place] [address] Hemoglobin (Bld) [Mass/Vol] 10.2 g/dL Low 13.0-17.0 [facility] Comment on above: Order Comment: No: D o not add to previous draw Performed By: #### 5 0608 ####[address] MCH (RBC) [Entitic mass] 23.8 pg Low 27.0-33.0 [facility] Comment on above: Order Comment: No: D o not add to previous draw Performed By: #### 5 0608 ####[address] MCHC (RBC) [Mass/Vol] 29.5 g/dL Low 32.0-35.0 [facility] Comment on above: Order Comment: No: D o not add to previous draw Performed By: #### 5 0608 ####[facility] [place] [address] MCV (RBC) [Entitic vol] 80.8 fL Low 82.0-98.0 [facility] Comment on above: Order Comment: No: D o not add to previous draw Performed By: #### 5 0608 ####[address] Nucleated RBC/100 WBC (Bld) [Ratio] 0 % Normal 0-0 [facility] Comment on above: Order Comment: No: D o not add to previous draw Performed By: #### 5 0608 ####[facility] [facility] [place] [address], [facility] PLAT CNT 131 10*3/uL Low 150-400 [facility] Comment on above: Order Comment: No: D o not add to previous draw Performed By: #### 5 0608 ####[facility] RBC (Bld) [#/Vol] 4.28 10*6/uL Normal 4.20-5.70 [facility] Comment on above: Order Comment: No: D o not add to previous draw Performed By: #### 5 0608 ####[facility] [place] [address], [facility] WBC (Bld) [#/Vol] 4.58 10*3/uL Normal 4.00-10.60 [facility] Comment on above: Order Comment: No: D o not add to previous draw Performed By: #### 5 0608 ####[facility] Cardiovascular Lab Reporton 05-04-2022 Cardiovascular Lab Report [facility] Patient Name: [facility] Man Ace MR #: [id number] Department of Physician: Fidel Scott M.D. Division of Service Date: 05/03/2022 Cardiology Birthdate: 1950 Adult Cardiovascular Room #: 5AB [id number] Services [facility] [address] [place] [address] Cardiovascular Laboratory Report FINAL IMPRESSIONS: 1. Moderately [...] over the hub of the previously placed [place] sheath. A Evangelista catheter was advanced through [place] sheath; pressures were measured in the right atrium, right ventricle, pulmonary artery, and pulmonary capillary wedge positions. Oxygen saturations were obtained and cardiac output/cardiac index was calculated using the modified Eliud principle. The Evangelista catheter was removed. The [place] sheath was to be removed with application [...] Iniguez M.D. Date Trans: 05/04/2022 05:38 Keerthi/surekha [id number] cc: Li Cintron M.D. Heart Failure/ Transplant Mailstop [address] [facility] [address] Normal [facility] BASIC METABOLIC PANELon 04-09 Calcium [Mass/Vol] 7.8 mg/dL Low 8.6-10.3 [facility] Comment on above: Order Comment: Check Pacemaker/AICD Lead Position, Chest X-ray PA \EANDE\ LAT in Dept ;DO NOT lift affected arm above shoulder. S/P pacemaker/ICD implant. Verify lead placement Performed By: #### 4 1000, 56458, 75225 ####[facility] [facility].[address] Chloride [Moles/Vol] 98 mmol/L Normal 98-107 [facility] Comment on above: Order Comment: Check Pacemaker/AICD Lead Position, Chest X-ray PA \EANDE\ LAT in Dept ;DO NOT lift affected arm above shoulder. S/P pacemaker/ICD implant. Verify lead placement Performed By: #### 4 1000, 11582, 59854 ####[facility] [facility].[address] CO2 [Moles/Vol] 31 mmol/L Normal 21-31 [facility] Comment on above: Order Comment: Check Pacemaker/AICD Lead Position, Chest X-ray PA \EANDE\ LAT in Dept ;DO NOT lift affected arm above shoulder. S/P pacemaker/ICD implant. Verify lead placement Performed By: #### 4 1000, 15639, 88298 ####[facility] [facility].[address] Creatinine [Mass/Vol] 2.19 mg/dL High 0.70-1.30 [facility] Comment on above: Order Comment: Check Pacemaker/AICD Lead Position, Chest X-ray PA \EANDE\ LAT in Dept ;DO NOT lift affected arm above shoulder. S/P pacemaker/ICD implant. Verify lead placement Performed By: #### 4 1000, 85189, 43428 ####[facility] [facility].[address] EGFR 32 ml/min/1.73sq m Abnormal >60 [facility] Comment on above: Order Comment: Check Pacemaker/AICD Lead Position, Chest X-ray PA \EANDE\ LAT in Dept ;DO NOT lift affected arm above shoulder. S/P pacemaker/ICD implant. Verify lead placement Result Comment: [facility]'s estimated glomerular filtration rate (eGFR) will [...] of individuals. Performed By: #### 4 1000, 56939, 21535 ####[facility] [facility] [place] [address], [facility] Glucose [Mass/Vol] 95 mg/dL Normal 70-100 [facility] Comment on above: Order Comment: Check Pacemaker/AICD Lead Position, Chest X-ray PA \EANDE\ LAT in Dept ;DO NOT lift affected arm above shoulder. S/P pacemaker/ICD implant. Verify lead placement Performed By: #### 4 999, 73242, 81827 ####[facility] [facility] [place] [address], [facility] Potassium [Moles/Vol] 3.3 mmol/L Low 3.5-5.1 [facility] Comment on above: Order Comment: Check Pacemaker/AICD Lead Position, Chest X-ray PA \EANDE\ LAT in Dept ;DO NOT lift affected arm above shoulder. S/P pacemaker/ICD implant. Verify lead placement Performed By: #### 4 999, 65834, 71619 ####[facility] [place] [address], [facility] Sodium [Moles/Vol] 137 mmol/L Normal 136-145 [facility] Comment on above: Order Comment: Check Pacemaker/AICD Lead Position, Chest X-ray PA \EANDE\ LAT in Dept ;DO NOT lift affected arm above shoulder. S/P pacemaker/ICD implant. Verify lead placement Performed By: #### 4 999, 40326, 76206 ####[facility] Urea nitrogen [Mass/Vol] 39 mg/dL High 7-25 [facility] Comment on above: Order Comment: Check Pacemaker/AICD Lead Position, Chest X-ray PA \EANDE\ LAT in Dept ;DO NOT lift affected arm above shoulder. S/P pacemaker/ICD implant. Verify lead placement Performed By: #### 4 1000, 39853, 81826 ####[facility] CBC W/DIFFon 05-03-2022 ABS IMM GRANS 0.0 10*3/uL Normal 0.0-0.2 [facility] Comment on above: Order Comment: No: D o not add to previous draw Performed By: #### 5 0608 #### [facility] [address] ABS NEUTROPHILS 3.8 10*3/uL Normal 1.6-7.6 [facility] Comment on above: Order Comment: No: D o not add to previous draw Performed By: #### 5 0608 #### [facility] [address] Basophils (Bld) [#/Vol] 0.0 10*3/uL Normal 0.0-0.2 [facility] Comment on above: Order Comment: No: D o not add to previous draw Performed By: #### 5 0608 #### [facility] [address] Basophils/100 WBC (Bld) 0.4 % Normal 0.0-1.0 [facility] Comment on above: Order Comment: No: D o not add to previous draw Performed By: #### 5 0608 #### [facility] [address] Eosinophils (Bld) [#/Vol] 0.3 10*3/uL Normal 0.0-0.5 [facility] Comment on above: Order Comment: No: D o not add to previous draw Performed By: #### 5 0608 #### [facility] [address] [facility] Eosinophils/100 WBC (Bld) 5.9 % Normal 0.0-6.0 [facility] Comment on above: Order Comment: No: D o not add to previous draw Performed By: #### 5 0608 #### [facility] [address] [facility]. [address] Erythrocyte distribution width (RBC) [Ratio] 20.8 % High 11.5-15.0 [facility] Comment on above: Order Comment: No: D o not add to previous draw Performed By: #### 5 0608 #### [facility] [address] [facility] Hematocrit (Bld) [Volume fraction] 31.0 % Low 39.0-50.0 [facility] Comment on above: Order Comment: No: D o not add to previous draw Performed By: #### 5 0608 #### [facility] [address] Hemoglobin (Bld) [Mass/Vol] 9.2 g/dL Low 13.0-17.0 [facility] Comment on above: Order Comment: No: D o not add to previous draw Performed By: #### 5 0608 #### [facility] [address] [facility]. [address] IMMATURE GRANS 0.6 % Normal 0.0-1.0 [facility] Comment on above: Order Comment: No: D o not add to previous draw Performed By: #### 5 0608 #### [facility] [address] [place] [address], [facility] Lymphocytes (Bld) [#/Vol] 0.6 10*3/uL Low 1.2-4.0 [facility] Comment on above: Order Comment: No: D o not add to previous draw Performed By: #### 5 0608 #### [facility] [address] [place] [address], [facility] Lymphocytes/100 WBC (Bld) 11.3 % Low 20.0-45.0 [facility] Comment on above: Order Comment: No: D o not add to previous draw Performed By: #### 5 0608 #### [facility] [address] [facility] [place] [address], [facility] MCH (RBC) [Entitic mass] 24.0 pg Low 27.0-33.0 [facility] Comment on above: Order Comment: No: D o not add to previous draw Performed By: #### 5 0608 #### [facility] [address] [place] [address], [facility] MCHC (RBC) [Mass/Vol] 29.7 g/dL Low 32.0-35.0 [facility] Comment on above: Order Comment: No: D o not add to previous draw Performed By: #### 5 0608 #### [facility] [address] [facility] [place] [address], [facility] MCV (RBC) [Entitic vol] 80.9 fL Low 82.0-98.0 [facility] Comment on above: Order Comment: No: D o not add to previous draw Performed By: #### 5 0608 #### [facility] [address] [facility] [place] [address], [facility] Monocytes (Bld) [#/Vol] 0.4 10*3/uL Normal 0.1-1.0 [facility] Comment on above: Order Comment: No: D o not add to previous draw Performed By: #### 5 0608 #### [facility] [address] [place] [address], [facility] MONOS 8.2 % Normal 5.0-12.0 [facility] Comment on above: Order Comment: No: D o not add to previous draw Performed By: #### 5 0608 #### [facility] [address] [place] [address], [facility] Neutrophils/100 WBC (Bld) 73.6 % High 40.0-72.0 [facility] Comment on above: Order Comment: No: D o not add to previous draw Performed By: #### 5 0608 #### [facility] [address] [place] [address], [facility] Nucleated RBC/100 WBC (Bld) [Ratio] 0 % Normal 0-0 [facility] Comment on above: Order Comment: No: D o not add to previous draw Performed By: #### 5 0608 #### [facility] [address] [place] [address], [facility] PLAT CNT 131 10*3/uL Low 150-400 [facility] Comment on above: Order Comment: No: D o not add to previous draw Performed By: #### 5 0608 #### [facility] [address] [place] [address], [facility] RBC (Bld) [#/Vol] 3.83 10*6/uL Low 4.20-5.70 [facility] Comment on above: Order Comment: No: D o not add to previous draw Performed By: #### 5 0608 #### [facility] [address] [place] [address], [facility] WBC (Bld) [#/Vol] 5.22 10*3/uL Normal 4.00-10.60 [facility] Comment on above: Order Comment: No: D o not add to previous draw Performed By: #### 5 0608 #### [facility] [address] [place] [address], [facility] MAGNESIUM BLOODon 05-03-2022 Magnesium [Mass/Vol] 2.0 mg/dL Normal 1.9-2.7 [facility] Comment on above: Order Comment: Check Pacemaker/AICD Lead Position, Chest X-ray PA \EANDE\ LAT in Dept ;DO NOT lift affected arm above shoulder. S/P pacemaker/ICD implant. Verify lead placement Performed By: #### 4 1000, 13103, 40829 ####[facility] [facility] [place] [address], [facility] PHOSPHORUS BLOODon Phosphate [Mass/Vol] 2.2 mg/dL Low 2.5-5.0 [facility] Comment on above: Order Comment: Check Pacemaker/AICD Lead Position, Chest X-ray PA \EANDE\ LAT in Dept ;DO NOT lift affected arm above shoulder. S/P pacemaker/ICD implant. Verify lead placement Performed By: #### 4 1000, 55625, 98750 ####[facility] [facility].[address] BASIC METABOLIC PANELon 04-09 Calcium [Mass/Vol] 7.8 mg/dL Low 8.6-10.3 [facility] Comment on above: Order Comment: No: D o not add to previous draw Performed By: #### 5 0103 #### [facility] [address] [facility] [place] [address], [facility] Chloride [Moles/Vol] 98 mmol/L Normal 98-107 [facility] Comment on above: Order Comment: No: D o not add to previous draw Performed By: #### 5 0103 #### [facility] [address] [facility] [place] [address], [facility] CO2 [Moles/Vol] 29 mmol/L Normal 21-31 [facility] Comment on above: Order Comment: No: D o not add to previous draw Performed By: #### 5 0103 #### [facility] [address] [place] [address], [facility] Creatinine [Mass/Vol] 2.26 mg/dL High 0.70-1.30 [facility] Comment on above: Order Comment: No: D o not add to previous draw Performed By: #### 5 0103 #### [facility] [address] [place] [address], [facility] EGFR 30 ml/min/1.73sq m Abnormal >60 [facility] Comment on above: Order Comment: No: D o not add to previous draw Result Comment: [facility]'s estimated glomerular filtration rate (eGFR) will [...] individuals. Performed By: #### 5 0103 #### [facility] [address] [place] [id number], [facility] Glucose [Mass/Vol] 91 mg/dL Normal 70-100 [facility] Comment on above: Order Comment: No: D o not add to previous draw Performed By: #### 5 0103 #### [facility] [address] [place] [address], [facility] Potassium [Moles/Vol] 3.5 mmol/L Normal 3.5-5.1 [facility] Comment on above: Order Comment: No: D o not add to previous draw Performed By: #### 5 0103 #### [facility] [address] [place] [address], [facility] Sodium [Moles/Vol] 135 mmol/L Low 136-145 [facility] Comment on above: Order Comment: No: D o not add to previous draw Performed By: #### 5 0103 #### [facility] [address] [place] [id number], [facility] Urea nitrogen [Mass/Vol] 46 mg/dL High 7-25 [facility] Comment on above: Order Comment: No: D o not add to previous draw Performed By: #### 5 0103 #### [facility] [address] CBC COMPLETE BLOOD COUNTon 0 05-02-2022 Erythrocyte distribution width (RBC) [Ratio] 20.4 % High 11.5-15.0 [facility] Comment on above: Order Comment: No: D o not add to previous draw Performed By: #### 5 0608 #### [facility] [address] [place] [address], [facility] Hematocrit (Bld) [Volume fraction] 29.9 % Low 39.0-50.0 [facility] Comment on above: Order Comment: No: D o not add to previous draw Performed By: #### 5 0608 #### [facility] [address] [place] [address], [facility] Hemoglobin (Bld) [Mass/Vol] 8.9 g/dL Low 13.0-17.0 [facility] Comment on above: Order Comment: No: D o not add to previous draw Performed By: #### 5 0608 #### [facility] [address] [place] [address], [facility] MCH (RBC) [Entitic mass] 24.1 pg Low 27.0-33.0 [facility] Comment on above: Order Comment: No: D o not add to previous draw Performed By: #### 5 0608 #### [facility] [address] [place] [address], [facility] MCHC (RBC) [Mass/Vol] 29.8 g/dL Low 32.0-35.0 [facility] Comment on above: Order Comment: No: D o not add to previous draw Performed By: #### 5 0608 #### [facility] [address] [place] [address], [facility] MCV (RBC) [Entitic vol] 80.8 fL Low 82.0-98.0 [facility] Comment on above: Order Comment: No: D o not add to previous draw Performed By: #### 5 0608 #### [facility] [address] [place] [address], [facility] Nucleated RBC/100 WBC (Bld) [Ratio] 0 % Normal 0-0 [facility] Comment on above: Order Comment: No: D o not add to previous draw Performed By: #### 5 0608 #### [facility] [address] [facility] [place] [place] [id number], [facility] PLAT CNT 130 10*3/uL Low 150-400 [facility] Comment on above: Order Comment: No: D o not add to previous draw Performed By: #### 5 0608 #### [facility] [address] [facility] [place] [address], [facility] RBC (Bld) [#/Vol] 3.70 10*6/uL Low 4.20-5.70 [facility] Comment on above: Order Comment: No: D o not add to previous draw Performed By: #### 5 0608 #### [facility] [address] [facility] [place] [address], [facility] WBC (Bld) [#/Vol] 4.68 10*3/uL Normal 4.00-10.60 [facility] Comment on above: Order Comment: No: D o not add to previous draw Performed By: #### 5 0608 #### [facility] [address] [facility] [place] [address], [facility] MAGNESIUM BLOODon 05-02-2022 Magnesium [Mass/Vol] 2.0 mg/dL Normal 1.9-2.7 [facility] Comment on above: Order Comment: No: D o not add to previous draw Performed By: #### 5 0103 #### [facility] [address] [facility] [place] [address], [facility] PHOSPHORUS BLOODon Phosphate [Mass/Vol] 2.5 mg/dL Normal 2.5-5.0 [facility] Comment on above: Order Comment: No: D o not add to previous draw Performed By: #### 5 0103 #### [facility] [address] [place] [address], [facility] BASIC METABOLIC PANELon 04-09 Calcium [Mass/Vol] 8.0 mg/dL Low 8.6-10.3 [facility] Comment on above: Order Comment: Check Pacemaker/AICD Lead Position, Chest X-ray PA \EANDE\ LAT in Dept ;DO NOT lift affected arm above shoulder. S/P pacemaker/ICD implant. Verify lead placement Performed By: #### 4 1000, 17832, 65009 ####[facility] [place] [address], [facility] Chloride [Moles/Vol] 99 mmol/L Normal 98-107 [facility] Comment on above: Order Comment: Check Pacemaker/AICD Lead Position, Chest X-ray PA \EANDE\ LAT in Dept ;DO NOT lift affected arm above shoulder. S/P pacemaker/ICD implant. Verify lead placement Performed By: #### 4 1000, 08996, 93696 ####[facility] [place] [address], [facility] CO2 [Moles/Vol] 31 mmol/L Normal 21-31 [facility] Comment on above: Order Comment: Check Pacemaker/AICD Lead Position, Chest X-ray PA \EANDE\ LAT in Dept ;DO NOT lift affected arm above shoulder. S/P pacemaker/ICD implant. Verify lead placement Performed By: #### 4 1000, 64731, 37975 ####[facility] [place] [address], [facility] Creatinine [Mass/Vol] 2.48 mg/dL High 0.70-1.30 [facility] Comment on above: Order Comment: Check Pacemaker/AICD Lead Position, Chest X-ray PA \EANDE\ LAT in Dept ;DO NOT lift affected arm above shoulder. S/P pacemaker/ICD implant. Verify lead placement Performed By: #### 4 1000, 17550, 86779 ####[facility] [place] [address], [facility] EGFR 27 ml/min/1.73sq m Abnormal >60 [facility] Comment on above: Order Comment: Check Pacemaker/AICD Lead Position, Chest X-ray PA \EANDE\ LAT in Dept ;DO NOT lift affected arm above shoulder. S/P pacemaker/ICD implant. Verify lead placement Result Comment: [facility]'s estimated glomerular filtration rate (eGFR) will [...] of individuals. Performed By: #### 4 1000, 50449, 77702 ####[facility] [place] [address], [facility] Glucose [Mass/Vol] 83 mg/dL Normal 70-100 [facility] Comment on above: Order Comment: Check Pacemaker/AICD Lead Position, Chest X-ray PA \EANDE\ LAT in Dept ;DO NOT lift affected arm above shoulder. S/P pacemaker/ICD implant. Verify lead placement Performed By: #### 4 999, 91537, 87608 ####[facility] [place] [address], [facility] Potassium [Moles/Vol] 3.5 mmol/L Normal 3.5-5.1 [facility] Comment on above: Order Comment: Check Pacemaker/AICD Lead Position, Chest X-ray PA \EANDE\ LAT in Dept ;DO NOT lift affected arm above shoulder. S/P pacemaker/ICD implant. Verify lead placement Performed By: #### 4 1000, 07777, 60925 ####[facility] [place] [address], [facility] Sodium [Moles/Vol] 137 mmol/L Normal 136-145 [facility] Comment on above: Order Comment: Check Pacemaker/AICD Lead Position, Chest X-ray PA \EANDE\ LAT in Dept ;DO NOT lift affected arm above shoulder. S/P pacemaker/ICD implant. Verify lead placement Performed By: #### 4 1000, 20689, 87830 ####[facility] Urea nitrogen [Mass/Vol] 49 mg/dL High 7-25 [facility] Comment on above: Order Comment: Check Pacemaker/AICD Lead Position, Chest X-ray PA \EANDE\ LAT in Dept ;DO NOT lift affected arm above shoulder. S/P pacemaker/ICD implant. Verify lead placement Performed By: #### 4 1000, 97888, 93135 ####[facility] CBC COMPLETE BLOOD COUNTon 05-01-2022 Erythrocyte distribution width (RBC) [Ratio] 20.6 % High 11.5-15.0 [facility] Comment on above: Order Comment: No: D o not add to previous draw Performed By: #### 5 0608 #### [facility] [address] [facility] [place] [address], [facility] Hematocrit (Bld) [Volume fraction] 28.9 % Low 39.0-50.0 [facility] Comment on above: Order Comment: No: D o not add to previous draw Performed By: #### 5 0608 #### [facility] [address] [place] [id number], [facility] Hemoglobin (Bld) [Mass/Vol] 8.6 g/dL Low 13.0-17.0 [facility] Comment on above: Order Comment: No: D o not add to previous draw Performed By: #### 5 0608 #### [facility] [address] [place] [id number], [facility] MCH (RBC) [Entitic mass] 24.1 pg Low 27.0-33.0 [facility] Comment on above: Order Comment: No: D o not add to previous draw Performed By: #### 5 0608 #### [facility] [address] [place] [address], [facility] MCHC (RBC) [Mass/Vol] 29.8 g/dL Low 32.0-35.0 [facility] Comment on above: Order Comment: No: D o not add to previous draw Performed By: #### 5 0608 #### [facility] [address] [place] [address], [facility] MCV (RBC) [Entitic vol] 81.0 fL Low 82.0-98.0 [facility] Comment on above: Order Comment: No: D o not add to previous draw Performed By: #### 5 0608 #### [facility] [address] [facility]. [address] Nucleated RBC/100 WBC (Bld) [Ratio] 0 % Normal 0-0 [facility] Comment on above: Order Comment: No: D o not add to previous draw Performed By: #### 5 0608 #### [facility] [address] [facility] [place] [address], [facility] PLAT CNT 130 10*3/uL Low 150-400 [facility] Comment on above: Order Comment: No: D o not add to previous draw Performed By: #### 5 0608 #### [facility] [address] [facility] [place] [address], [facility] RBC (Bld) [#/Vol] 3.57 10*6/uL Low 4.20-5.70 [facility] Comment on above: Order Comment: No: D o not add to previous draw Performed By: #### 5 0608 #### [facility] [address] [place] [address], [facility] WBC (Bld) [#/Vol] 4.33 10*3/uL Normal 4.00-10.60 [facility] Comment on above: Order Comment: No: D o not add to previous draw Performed By: #### 5 0608 #### [facility] [address] [place] [address], [facility] COOXIMETRYon 05-01-2022 COHB 2 % Normal [facility] Comment on above: Performed By: #### 7 0207 #### [facility] [address] [place] [address], [facility] METHB 1 % Normal [facility] Comment on above: Performed By: #### 7 0207 #### [facility] [address] [place] [address], [facility] Oxygen saturation in Blood 71.0 % Normal 65.0-75.0 [facility] Comment on above: Performed By: #### 7 0207 #### [facility] [address] [place] [address], [facility] THB 9.0 g/dL Normal [facility] Comment on above: Performed By: #### 7 0207 #### [facility] [address] [place] [address], [facility] MAGNESIUM BLOODon 05-01-2022 Magnesium [Mass/Vol] 2.1 mg/dL Normal 1.9-2.7 [facility] Comment on above: Order Comment: Check Pacemaker/AICD Lead Position, Chest X-ray PA \EANDE\ LAT in Dept ;DO NOT lift affected arm above shoulder. S/P pacemaker/ICD implant. Verify lead placement Performed By: #### 4 1000, 94706, 21431 ####[facility] [place] [address], [facility] PHOSPHORUS BLOODon 2 Phosphate [Mass/Vol] 3.6 mg/dL Normal 2.5-5.0 [facility] Comment on above: Order Comment: Check Pacemaker/AICD Lead Position, Chest X-ray PA \EANDE\ LAT in Dept ;DO NOT lift affected arm above shoulder. S/P pacemaker/ICD implant. Verify lead placement Performed By: #### 4 1000, 35184, 95325 ####[facility] PORTABLE CHEST 1 VIEWon 04-09 PORTABLE CHEST 1 VIEW [facility] Department of Radiology [address] [place] [address] Patient Name: AMN PATEL : 1950 Sex: M Age: Race: White Pt. Location: [place] [address] Patient Status: I Ordered Date: 05/01/2022 10:35:00 [...] obtained. COMPARISON: Chest radiograph dated 08/01/2021 FINDINGS: [place] catheter placed via right internal jugular approach has tip in the right pulmonary artery. Dual-chamber pacemaker placed left subclavian approach. Moderate cardiomegaly. Moderate CHF. No pleural effusion. No pneumothorax. IMPRESSION: Moderate cardiomegaly. Moderate CHF. Electronically signed: Aldo Montana. Transcribed by: [email or web address], User Resident: Electronically Signed by: ALDO MONTANA @ 05/01/2022 11:16 AM Normal [facility] Comment on above: Order Comment: Check Line Position *BLOOD CULTUREon 04-30-2022 *BLOOD CULTURE Clinical Report: (D) Specimen: BLOOD CULTURE Collected: 04/29/2022 23:47 Status: Final Last Updated: 05/05/2022 06:59 CULT RES (Final) No Growth Day 5 Normal [facility] Comment on above: Performed By: #### 3 0313 ####[facility] [facility].[address] *BLOOD CULTURE Clinical Report: (D) Specimen: BLOOD CULTURE Collected: 04/29/2022 23:43 Status: Final Last Updated: 05/05/2022 06:59 CULT RES (Final) No Growth Day 5 Normal [facility] Comment on above: Performed By: #### 3 0313 #### [facility] [address] [place] [address], [facility] BASIC METABOLIC PANELon 04-09 Calcium [Mass/Vol] 8.0 mg/dL Low 8.6-10.3 [facility] Comment on above: Order Comment: No: D o not add to previous draw Performed By: #### 4 5506, 72332, 78928, 60164 ####[facility] [place] [address], [place] Chloride [Moles/Vol] 100 mmol/L Normal 98-107 [facility] Comment on above: Order Comment: No: D o not add to previous draw Performed By: #### 4 5506, 44473, 77356, 69210 ####[facility] [place] [address], [place] CO2 [Moles/Vol] 31 mmol/L Normal 21-31 [facility] Comment on above: Order Comment: No: D o not add to previous draw Performed By: #### 4 5506, 59032, 21962, 58960 ####[facility] [place] [address], [facility] Creatinine [Mass/Vol] 2.53 mg/dL High 0.70-1.30 [facility] Comment on above: Order Comment: No: D o not add to previous draw Performed By: #### 4 5506, 60583, 95264, 03794 ####[facility] [place] [address], [facility] EGFR 27 ml/min/1.73sq m Abnormal >60 [facility] Comment on above: Order Comment: No: D o not add to previous draw Result Comment: [facility]'s estimated glomerular filtration rate (eGFR) will [...] of individuals. Performed By: #### 4 5506, 38960, 56420, 32314 ####[facility] [place] [address], [facility] Glucose [Mass/Vol] 94 mg/dL Normal 70-100 [facility] Comment on above: Order Comment: No: D o not add to previous draw Performed By: #### 4 5506, 38485, 50657, 37153 ####[facility] [place] [address], [facility] Potassium [Moles/Vol] 3.5 mmol/L Normal 3.5-5.1 [facility] Comment on above: Order Comment: No: D o not add to previous draw Performed By: #### 4 5506, 09279, 12604, 71166 ####[facility] Sodium [Moles/Vol] 139 mmol/L Normal 136-145 [facility] Comment on above: Order Comment: No: D o not add to previous draw Performed By: #### 4 5506, 01349, 53191, 88337 ####[facility] Urea nitrogen [Mass/Vol] 49 mg/dL High 7-25 [facility] Comment on above: Order Comment: No: D o not add to previous draw Performed By: #### 4 5506, 46939, 35710, 57196 ####[facility] CBC COMPLETE BLOOD COUNTon 0 - Erythrocyte distribution width (RBC) [Ratio] 20.8 % High 11.5-15.0 [facility] Comment on above: Order Comment: No: D o not add to previous draw Performed By: #### 5 0608 #### [facility] [address] [facility]. [address] Hematocrit (Bld) [Volume fraction] 28.3 % Low 39.0-50.0 [facility] Comment on above: Order Comment: No: D o not add to previous draw Performed By: #### 5 0608 #### [facility] [address] [facility] [place] [address], [facility] Hemoglobin (Bld) [Mass/Vol] 8.5 g/dL Low 13.0-17.0 [facility] Comment on above: Order Comment: No: D o not add to previous draw Performed By: #### 5 0608 #### [facility] [address] [facility] [place] [address], [facility] MCH (RBC) [Entitic mass] 24.3 pg Low 27.0-33.0 [facility] Comment on above: Order Comment: No: D o not add to previous draw Performed By: #### 5 0608 #### [facility] [address] [place] [id number], [facility] MCHC (RBC) [Mass/Vol] 30.0 g/dL Low 32.0-35.0 [facility] Comment on above: Order Comment: No: D o not add to previous draw Performed By: #### 5 0608 #### [facility] [address] [place] [id number], [facility] MCV (RBC) [Entitic vol] 80.9 fL Low 82.0-98.0 [facility] Comment on above: Order Comment: No: D o not add to previous draw Performed By: #### 5 0608 #### [facility] [address] [facility] [place] [address], [facility] Nucleated RBC/100 WBC (Bld) [Ratio] 0 % Normal 0-0 [facility] Comment on above: Order Comment: No: D o not add to previous draw Performed By: #### 5 0608 #### [facility] [address] [facility] [place] [place] [id number], [facility] PLAT CNT 139 10*3/uL Low 150-400 [facility] Comment on above: Order Comment: No: D o not add to previous draw Performed By: #### 5 0608 #### [facility] [address] [facility]. [place] [id number], [facility] RBC (Bld) [#/Vol] 3.50 10*6/uL Low 4.20-5.70 [facility] Comment on above: Order Comment: No: D o not add to previous draw Performed By: #### 5 0608 #### [facility] [address] [address] [place] [id number], [facility] WBC (Bld) [#/Vol] 4.28 10*3/uL Normal 4.00-10.60 [facility] Comment on above: Order Comment: No: D o not add to previous draw Performed By: #### 5 0608 #### [facility] [address] [place] [address], [facility] COOXIMETRYon 04-30-2022 COHB 2 % Normal [facility] Comment on above: Performed By: #### 3 0313 #### [facility] [address] [place] [address], [facility] METHB 1 % Normal [facility] Comment on above: Performed By: #### 3 0313 #### [facility] [address] [place] [address], [facility] Oxygen saturation in Blood 69.0 % Normal 65.0-75.0 [facility] Comment on above: Performed By: #### 3 0313 #### [facility] [address] [facility] [place] [address], [facility] THB 12.0 g/dL Normal [facility] Comment on above: Performed By: #### 3 0313 #### [facility] [address] [facility] [place] [address], [facility] Cardiovascular Lab Reporton 04-30-2022 Cardiovascular Lab Report [facility] Patient Name: [facility] Man Ace MR #: [id number] Department of Physician: Fidel Flowers MKhari Division of Service Date: 04/29/2022 Cardiology Birthdate: 1950 Adult Cardiovascular Room #: KASANDRA [id number] [facility] [address] [address] Cardiovascular Laboratory Report CLINICAL PRESENTATION: The patient is a 72-year-old male with past medical history significant for CAD, status post CABG, heart failure with EF 40%, CKD with acute kidney injury, atrial fibrillation on Eliquis, pacemaker, and hypertension. The patient was admitted with shortness of breath and lower extremity edema concerning for pygxi-hr-[id number] systolic heart failure. He has worsening renal [...] Given worsening renal function, we will place [place]-Eleazar catheter for invasive hemodynamic monitoring in the ICU. The patient will likely require milrinone inotrope therapy. 2. Remainder of plan per Cardiology Service. 3. There was tracing of severe V-waves, which could be seen in mitral regurgitation. Correlation with echocardiogram is recommended. PROCEDURES: Right heart catheterization, ultrasound guidance for vascular access. INDICATION: [id number] systolic heart failure. PROCEDURE DESCRIPTION: The patient [...] ultrasound guidance and micropuncture access technique, a 6-Chinese sheath was placed in the right internal [...] renal function, we agreed to place a [place]-Eleazar catheter for monitoring in the ICU. Next, using a wire, I exchanged the sheath to an 8-Chinese Cordis sheath. This was sutured to the skin. Next, I advanced Alarcon [employer] NUTRITION MANAGER [place]-Eleazar catheter to the pulmonary artery position. The [...] Red M.D. Date Trans: 04/30/2022 10:29 A/surekha [id number] cc: Li Cintron M.D. Heart Failure/ Transplant Mailstop [address] [address] Normal [facility] MAGNESIUM BLOODon 04-30-2022 Magnesium [Mass/Vol] 2.3 mg/dL Normal 1.9-2.7 [facility] Comment on above: Order Comment: No: D o not add to previous draw Performed By: #### 4 5506, 77882, 61968, 37622 ####[facility] [facility] PHOSPHORUS BLOODon Phosphate [Mass/Vol] 4.1 mg/dL Normal 2.5-5.0 [facility] Comment on above: Performed By: #### 4 5506, 22300, 97869, 25825 ####[facility] [place] [address], [facility] URIC ACID BLOODon 04-30-2022 Urate [Mass/Vol] 13.5 mg/dL High 4.4-7.6 [facility] Comment on above: Performed By: #### 4 5506, 71401, 43016, 72591 ####[facility] [place] [address], [facility] BASIC METABOLIC PANELon 04-09 Calcium [Mass/Vol] 8.4 mg/dL Low 8.6-10.3 [facility] Comment on above: Order Comment: No: D o not add to previous draw Performed By: #### 3 0313 #### [facility] [address] [place] [address], [facility] Chloride [Moles/Vol] 100 mmol/L Normal 98-107 [facility] Comment on above: Order Comment: No: D o not add to previous draw Performed By: #### 3 0313 #### [facility] [address] [place] [address], [facility] CO2 [Moles/Vol] 30 mmol/L Normal 21-31 [facility] Comment on above: Order Comment: No: D o not add to previous draw Performed By: #### 3 0313 #### [facility] [address] [place] [id number], [facility] Creatinine [Mass/Vol] 2.09 mg/dL High 0.70-1.30 [facility] Comment on above: Order Comment: No: D o not add to previous draw Performed By: #### 3 0313 #### [facility] [address] [facility] [place] [address], [facility] EGFR 33 ml/min/1.73sq m Abnormal >60 [facility] Comment on above: Order Comment: No: D o not add to previous draw Result Comment: [facility]'s estimated glomerular filtration rate (eGFR) will [...] individuals. Performed By: #### 3 0313 #### [facility] [address] [place] [id number], [facility] Glucose [Mass/Vol] 96 mg/dL Normal 70-100 [facility] Comment on above: Order Comment: No: D o not add to previous draw Performed By: #### 3 0313 #### [facility] [address] [place] [address], [facility] Potassium [Moles/Vol] 4.0 mmol/L Normal 3.5-5.1 [facility] Comment on above: Order Comment: No: D o not add to previous draw Performed By: #### 3 0313 #### [facility] [address] [place] [address], [facility] Sodium [Moles/Vol] 138 mmol/L Normal 136-145 [facility] Comment on above: Order Comment: No: D o not add to previous draw Performed By: #### 3 0313 #### [facility] [address] [place] [address], [facility] Urea nitrogen [Mass/Vol] 48 mg/dL High 7-25 [facility] Comment on above: Order Comment: No: D o not add to previous draw Performed By: #### 3 0313 #### [facility] [address] [place] [address], [facility] CBC COMPLETE BLOOD COUNTon 0 - Erythrocyte distribution width (RBC) [Ratio] 20.6 % High 11.5-15.0 [facility] Comment on above: Order Comment: No: D o not add to previous draw Performed By: #### 5 0608 ####[facility] [place] [address], [facility] Hematocrit (Bld) [Volume fraction] 31.0 % Low 39.0-50.0 [facility] Comment on above: Order Comment: No: D o not add to previous draw Performed By: #### 5 0608 ####[facility] [id number], [facility] Hemoglobin (Bld) [Mass/Vol] 8.9 g/dL Low 13.0-17.0 [facility] Comment on above: Order Comment: No: D o not add to previous draw Performed By: #### 5 0608 ####[facility] MCH (RBC) [Entitic mass] 23.1 pg Low 27.0-33.0 [facility] Comment on above: Order Comment: No: D o not add to previous draw Performed By: #### 5 0608 ####[facility] [facility] [place] [address], [facility] MCHC (RBC) [Mass/Vol] 28.7 g/dL Low 32.0-35.0 [facility] Comment on above: Order Comment: No: D o not add to previous draw Performed By: #### 5 0608 ####[facility] [facility] [place] [address], [facility] MCV (RBC) [Entitic vol] 80.5 fL Low 82.0-98.0 [facility] Comment on above: Order Comment: No: D o not add to previous draw Performed By: #### 5 0608 ####[facility] [facility] [place] [facility].[address] Nucleated RBC/100 WBC (Bld) [Ratio] 0 % Normal 0-0 [facility] Comment on above: Order Comment: No: D o not add to previous draw Performed By: #### 5 0608 ####[facility] [facility] [place] [address], [facility] PLAT CNT 145 10*3/uL Low 150-400 [facility] Comment on above: Order Comment: No: D o not add to previous draw Performed By: #### 5 0608 ####[facility] [facility] [place] [address], [facility] RBC (Bld) [#/Vol] 3.85 10*6/uL Low 4.20-5.70 [facility] Comment on above: Order Comment: No: D o not add to previous draw Performed By: #### 5 0608 ####[facility] [place] [address].[place] [address], [facility] WBC (Bld) [#/Vol] 5.00 10*3/uL Normal 4.00-10.60 [facility] Comment on above: Order Comment: No: D o not add to previous draw Performed By: #### 5 0608 ####[facility] [place] [address], [facility] COOXIMETRYon 04-29-2022 COHB 3 % Normal [facility] Comment on above: Performed By: #### 5 0103 #### [facility] [address] [place] [address], [facility] METHB 1 % Normal [facility] Comment on above: Performed By: #### 5 0103 #### [facility] [address] [place] [address], [facility] Oxygen saturation in Blood 74.0 % Normal 65.0-75.0 [facility] Comment on above: Performed By: #### 5 0103 #### [facility] [address] [place] [address], [facility] THB 8.4 g/dL Normal [facility] Comment on above: Performed By: #### 5 0103 #### [facility] [address] [place] [address], [facility] MAGNESIUM BLOODon 04-29-2022 Magnesium [Mass/Vol] 2.3 mg/dL Normal 1.9-2.7 [facility] Comment on above: Order Comment: No: D o not add to previous draw Performed By: #### 3 0313 #### [facility] [address] [place] [address], [facility] BASIC METABOLIC PANELon 04-09 Calcium [Mass/Vol] 8.3 mg/dL Low 8.6-10.3 [facility] Comment on above: Order Comment: No: D o not add to previous draw Performed By: #### 0 0071, 46428, 58736 ####[facility] [place] [address], [facility] Chloride [Moles/Vol] 100 mmol/L Normal 98-107 [facility] Comment on above: Order Comment: No: D o not add to previous draw Performed By: #### 0 0071, 29221, 78790 ####[facility] [place] [address], [facility] CO2 [Moles/Vol] 29 mmol/L Normal 21-31 [facility] Comment on above: Order Comment: No: D o not add to previous draw Performed By: #### 0 0071, 22510, 35381 ####[facility] [place] [address], [facility] Creatinine [Mass/Vol] 2.51 mg/dL High 0.70-1.30 [facility] Comment on above: Order Comment: No: D o not add to previous draw Performed By: #### 0 0071, 75810, 67463 ####[facility] [facility] [place] [address], [facility] EGFR 27 ml/min/1.73sq m Abnormal >60 [facility] Comment on above: Order Comment: No: D o not add to previous draw Result Comment: [facility]'s estimated glomerular filtration rate (eGFR) will [...] of individuals. Performed By: #### 0 0071, 35632, 01921 ####[facility] [id number], [facility] Glucose [Mass/Vol] 98 mg/dL Normal 70-100 [facility] Comment on above: Order Comment: No: D o not add to previous draw Performed By: #### 0 0071, 11637, 70919 ####[facility] Potassium [Moles/Vol] 3.9 mmol/L Normal 3.5-5.1 [facility] Comment on above: Order Comment: No: D o not add to previous draw Performed By: #### 0 0071, 08346, 12435 ####[facility] Sodium [Moles/Vol] 138 mmol/L Normal 136-145 [facility] Comment on above: Order Comment: No: D o not add to previous draw Performed By: #### 0 1, 29984, 62626 ####[facility] Urea nitrogen [Mass/Vol] 55 mg/dL High 7-25 [facility] Comment on above: Order Comment: No: D o not add to previous draw Performed By: #### 0 0071, 94171, 29492 ####[facility] [facility].[address] CBC COMPLETE BLOOD COUNTon 0 - Erythrocyte distribution width (RBC) [Ratio] 20.2 % High 11.5-15.0 [facility] Comment on above: Order Comment: No: D o not add to previous draw Performed By: #### 5 0608 ####[facility] Hematocrit (Bld) [Volume fraction] 28.9 % Low 39.0-50.0 [facility] Comment on above: Order Comment: No: D o not add to previous draw Performed By: #### 5 0608 ####[facility] Hemoglobin (Bld) [Mass/Vol] 8.7 g/dL Low 13.0-17.0 [facility] Comment on above: Order Comment: No: D o not add to previous draw Performed By: #### 5 0608 ####[address] MCH (RBC) [Entitic mass] 24.0 pg Low 27.0-33.0 [facility] Comment on above: Order Comment: No: D o not add to previous draw Performed By: #### 5 0608 ####[address] MCHC (RBC) [Mass/Vol] 30.1 g/dL Low 32.0-35.0 [facility] Comment on above: Order Comment: No: D o not add to previous draw Performed By: #### 5 0608 ####[address] MCV (RBC) [Entitic vol] 79.6 fL Low 82.0-98.0 [facility] Comment on above: Order Comment: No: D o not add to previous draw Performed By: #### 5 0608 ####[address] Nucleated RBC/100 WBC (Bld) [Ratio] 0 % Normal 0-0 [facility] Comment on above: Order Comment: No: D o not add to previous draw Performed By: #### 5 0608 ####[address] PLAT CNT 162 10*3/uL Normal 150-400 [facility] Comment on above: Order Comment: No: D o not add to previous draw Performed By: #### 5 0608 ####[place] [address], [place] RBC (Bld) [#/Vol] 3.63 10*6/uL Low 4.20-5.70 [facility] Comment on above: Order Comment: No: D o not add to previous draw Performed By: #### 5 0608 ####[facility] [place] [address], [facility] WBC (Bld) [#/Vol] 6.21 10*3/uL Normal 4.00-10.60 [facility] Comment on above: Order Comment: No: D o not add to previous draw Performed By: #### 5 0608 ####[facility] [place] [address] LIPID PROFILEon 04-28-2022 Cholesterol [Mass/Vol] 92 mg/dL Low 120-200 [facility] Comment on above: Order Comment: Yes: Add to Previous draw if able Result Comment: CHOL ESTEROL REFERENCE RANGE: 20 YEARS AND OLDER CARDIOVASCULAR RISK Less than 200 mg/dl Low Risk 200 to 239 mg/dl Borderline Risk 240 mg/dl and greater High Risk Performed By: #### 0 0071, 04861, 13898 ####[facility] Cholesterol in HDL [Mass/Vol] 37 mg/dL Normal 23-92 [facility] Comment on above: Order Comment: Yes: Add to Previous draw if able Result Comment: Slig ht variation in normal range could be due to gender and/or age. HDL CHOLESTEROL REFERENCE RANGE: 20 years and older Cardiovascular Risk > or =60 mg/dL Desirable 40 TO 59 mg/dL Low Risk <40 mg/dL High Risk Performed By: #### 0 0071, 78395, 88429 ####[facility] Cholesterol in LDL [Mass/Vol] 47 mg/dL Normal 0-130 [facility] Comment on above: Order Comment: Yes: Add to Previous draw if able Result Comment: LDL IS A CALCULATION LDL IS ONLY VALID IF THE TRIG IS LESS THAN 400. Performed By: #### 0 0071, 28426, 92181 ####[facility] Cholesterol.total/Chol esterol in HDL [Mass ratio] 2.5 {ratio} Normal .0-4.5 [facility] Comment on above: Order Comment: Yes: Add to Previous draw if able Performed By: #### 0 0071, 99640, 06139 ####[facility] NON-HDL CHOLESTEROL 55 mg/dL Normal [facility] Comment on above: Order Comment: Yes: Add to Previous draw if able Performed By: #### 0 0071, , 26742 ####[facility] [facility].[address] Triglyceride [Mass/Vol] 40 mg/dL Normal 40-149 [facility] Comment on above: Order Comment: Yes: Add to Previous draw if able Result Comment: TRIG LYCERIDE REFERENCE RANGE: 20 YEARS AND OLDER CARDIOVASCULAR RISK LESS THAN 150 mg/dl LOW RISK 150 TO 199 mg/dl BORDERLINE RISK 200 mg/dl AND GREATER HIGH RISK Performed By: #### 0 0071, , 36520 ####[facility] [facility].[address] VLDL CHOL 8 mg/dL Normal 0-40 [facility] Comment on above: Order Comment: Yes: Add to Previous draw if able Performed By: #### 0 0071, 17778, 88698 ####[facility] [place] [address], [facility] MAGNESIUM BLOODon 04-28-2022 Magnesium [Mass/Vol] 2.4 mg/dL Normal 1.9-2.7 [facility] Comment on above: Order Comment: No: D o not add to previous draw Performed By: #### 0 0071, 68161, 23401 ####[facility] [place] [address], [facility] BASIC METABOLIC PANELon 08-2 0-2021 Calcium [Mass/Vol] 8.4 mg/dL Low 8.6-10.3 [facility] Comment on above: Order Comment: No: D o not add to previous draw Performed By: #### 7 0207 #### [facility] [address] [place] [address], [facility] Chloride [Moles/Vol] 100 mmol/L Normal 98-107 [facility] Comment on above: Order Comment: No: D o not add to previous draw Performed By: #### 7 0207 #### [facility] [address] [place] [address], [facility] CO2 [Moles/Vol] 27 mmol/L Normal 21-31 [facility] Comment on above: Order Comment: No: D o not add to previous draw Performed By: #### 7 0207 #### [facility] [address] [place] [address], [facility] Creatinine [Mass/Vol] 2.46 mg/dL High 0.70-1.30 [facility] Comment on above: Order Comment: No: D o not add to previous draw Performed By: #### 7 0207 #### [facility] [address] [place] [address], [facility] EGFR 27 ml/min/1.73sq m Abnormal >60 [facility] Comment on above: Order Comment: No: D o not add to previous draw Result Comment: [facility]'s estimated glomerular filtration rate (eGFR) will [...] individuals. Performed By: #### 7 0207 #### [facility] [address] [place] [address], [place] Glucose [Mass/Vol] 96 mg/dL Normal 70-100 [facility] Comment on above: Order Comment: No: D o not add to previous draw Performed By: #### 7 0207 #### [facility] [address] [place] [address], [place] Potassium [Moles/Vol] 3.8 mmol/L Normal 3.5-5.1 [facility] Comment on above: Order Comment: No: D o not add to previous draw Performed By: #### 7 0207 #### [facility] [address] [place] [address], [place] Sodium [Moles/Vol] 136 mmol/L Normal 136-145 [facility] Comment on above: Order Comment: No: D o not add to previous draw Performed By: #### 7 7 #### [facility] [address] [place] [address], [place] Urea nitrogen [Mass/Vol] 57 mg/dL High 7-25 [facility] Comment on above: Order Comment: No: D o not add to previous draw Performed By: #### 7 0207 #### [facility] [address] [place] [address], [place] BASIC METABOLIC PANELon 04-08 Calcium [Mass/Vol] 8.7 mg/dL Normal 8.6-10.3 [facility] Comment on above: Order Comment: No: D o not add to previous draw Performed By: #### 3 0313 #### [facility] [address] [place] [address], [place] Chloride [Moles/Vol] 100 mmol/L Normal 98-107 [facility] Comment on above: Order Comment: No: D o not add to previous draw Performed By: #### 3 0313 #### [facility] [address] [place] [address], [facility] CO2 [Moles/Vol] 26 mmol/L Normal 21-31 [facility] Comment on above: Order Comment: No: D o not add to previous draw Performed By: #### 3 0313 #### [facility] [address] [place] [address], [facility] Creatinine [Mass/Vol] 2.63 mg/dL High 0.70-1.30 [facility] Comment on above: Order Comment: No: D o not add to previous draw Performed By: #### 3 0313 #### [facility] [address] [place] [address], [facility] EGFR 25 ml/min/1.73sq m Abnormal >60 [facility] Comment on above: Order Comment: No: D o not add to previous draw Result Comment: [facility]'s estimated glomerular filtration rate (eGFR) will [...] individuals. Performed By: #### 3 0313 #### [facility] [address] [place] [address], [facility] Glucose [Mass/Vol] 101 mg/dL High 70-100 [facility] Comment on above: Order Comment: No: D o not add to previous draw Performed By: #### 3 0313 #### [facility] [address] [place] [address], [facility] Potassium [Moles/Vol] 4.3 mmol/L Normal 3.5-5.1 [facility] Comment on above: Order Comment: No: D o not add to previous draw Performed By: #### 3 0313 #### [facility] [address] [place] [address], [facility] Sodium [Moles/Vol] 136 mmol/L Normal 136-145 [facility] Comment on above: Order Comment: No: D o not add to previous draw Performed By: #### 3 3 #### [facility] [address] [facility] [place] [address], [facility] Urea nitrogen [Mass/Vol] 57 mg/dL High 7-25 [facility] Comment on above: Order Comment: No: D o not add to previous draw Performed By: #### 3 3 #### [facility] [address] [place] [address], [facility] CBC W/DIFFon 04-26-2022 ABS IMM GRANS 0.0 10*3/uL Normal 0.0-0.2 [facility] Comment on above: Order Comment: No: D o not add to previous draw Performed By: #### 5 0103 #### [facility] [address] [place] [address], [facility] ABS NEUTROPHILS 5.2 10*3/uL Normal 1.6-7.6 [facility] Comment on above: Order Comment: No: D o not add to previous draw Performed By: #### 5 3 #### [facility] [address] [place] [address], [facility] Basophils (Bld) [#/Vol] 0.0 10*3/uL Normal 0.0-0.2 [facility] Comment on above: Order Comment: No: D o not add to previous draw Performed By: #### 5 0103 #### [facility] [address] [place] [address], [facility] Basophils/100 WBC (Bld) 0.6 % Normal 0.0-1.0 [facility] Comment on above: Order Comment: No: D o not add to previous draw Performed By: #### 5 0103 #### [facility] [address] [place] [address], [facility] Eosinophils (Bld) [#/Vol] 0.2 10*3/uL Normal 0.0-0.5 [facility] Comment on above: Order Comment: No: D o not add to previous draw Performed By: #### 5 0103 #### [facility] [address] [place] [address], [facility] Eosinophils/100 WBC (Bld) 3.4 % Normal 0.0-6.0 [facility] Comment on above: Order Comment: No: D o not add to previous draw Performed By: #### 5 0103 #### [facility] [address] [facility]. [address] Erythrocyte distribution width (RBC) [Ratio] 19.9 % High 11.5-15.0 [facility] Comment on above: Order Comment: No: D o not add to previous draw Performed By: #### 5 0103 #### [facility] [address] [facility] [place] Hematocrit (Bld) [Volume fraction] 30.2 % Low 39.0-50.0 [facility] Comment on above: Order Comment: No: D o not add to previous draw Performed By: #### 5 0103 #### [facility] [address] [facility] [place] [address], [facility] Hemoglobin (Bld) [Mass/Vol] 9.0 g/dL Low 13.0-17.0 [facility] Comment on above: Order Comment: No: D o not add to previous draw Performed By: #### 5 0103 #### [facility] [address] [facility] [place] [address], [facility] IMMATURE GRANS 0.2 % Normal 0.0-1.0 [facility] Comment on above: Order Comment: No: D o not add to previous draw Performed By: #### 5 0103 #### [facility] [address] [facility] [address], [facility] Lymphocytes (Bld) [#/Vol] 0.4 10*3/uL Low 1.2-4.0 [facility] Comment on above: Order Comment: No: D o not add to previous draw Performed By: #### 5 0103 #### [facility] [address] [place] [id number], [facility] Lymphocytes/100 WBC (Bld) 6.6 % Low 20.0-45.0 [facility] Comment on above: Order Comment: No: D o not add to previous draw Performed By: #### 5 0103 #### [facility] [address] [facility] [place] [address], [facility] MCH (RBC) [Entitic mass] 23.4 pg Low 27.0-33.0 [facility] Comment on above: Order Comment: No: D o not add to previous draw Performed By: #### 5 0103 #### [facility] [address] [place] [address], [facility] MCHC (RBC) [Mass/Vol] 29.8 g/dL Low 32.0-35.0 [facility] Comment on above: Order Comment: No: D o not add to previous draw Performed By: #### 5 0103 #### [facility] [address] [place] [id number], [facility] MCV (RBC) [Entitic vol] 78.4 fL Low 82.0-98.0 [facility] Comment on above: Order Comment: No: D o not add to previous draw Performed By: #### 5 0103 #### [facility] [address] [place] [id number], [facility] Monocytes (Bld) [#/Vol] 0.7 10*3/uL Normal 0.1-1.0 [facility] Comment on above: Order Comment: No: D o not add to previous draw Performed By: #### 5 0103 #### [facility] [address] [place] [address], [place] MONOS 10.3 % Normal 5.0-12.0 [facility] Comment on above: Order Comment: No: D o not add to previous draw Performed By: #### 5 0103 #### [facility] [address] [place] [address], [place] Neutrophils/100 WBC (Bld) 78.9 % High 40.0-72.0 [facility] Comment on above: Order Comment: No: D o not add to previous draw Performed By: #### 5 0103 #### [facility] [address] [place] [address], [facility] Nucleated RBC/100 WBC (Bld) [Ratio] 0 % Normal 0-0 [facility] Comment on above: Order Comment: No: D o not add to previous draw Performed By: #### 5 0103 #### [facility] [address] [place] [address], [place] PLAT CNT 196 10*3/uL Normal 150-400 [facility] Comment on above: Order Comment: No: D o not add to previous draw Performed By: #### 5 0103 #### [facility] [address] [place] [address], [facility] RBC (Bld) [#/Vol] 3.85 10*6/uL Low 4.20-5.70 [facility] Comment on above: Order Comment: No: D o not add to previous draw Performed By: #### 5 0103 #### [facility] [address] [place] [address], [place] WBC (Bld) [#/Vol] 6.52 10*3/uL Normal 4.00-10.60 [facility] Comment on above: Order Comment: No: D o not add to previous draw Performed By: #### 5 0103 #### [facility] [address] [place] [address], [place] HEMOGLOBIN A1Con 08-19-2022 Glucose [Moles/Vol] 111 mmol/L Normal [facility] Comment on above: Order Comment: Check Pacemaker/AICD Lead Position, Chest X-ray PA \EANDE\ LAT in Dept ;DO NOT lift affected arm above shoulder. S/P pacemaker/ICD implant. Verify lead placement Performed By: #### 3 1791 ####[facility] HbA1c (Bld) [Mass fraction] 5.5 % Normal 4.0-6.0 [facility] Comment on above: Order Comment: Check Pacemaker/AICD Lead Position, Chest X-ray PA \EANDE\ LAT in Dept ;DO NOT lift affected arm above shoulder. S/P pacemaker/ICD implant. Verify lead placement Performed By: #### 3 1791 ####[facility] [facility].[address] MAGNESIUM BLOODon 04-26-2022 Magnesium [Mass/Vol] 2.6 mg/dL Normal 1.9-2.7 [facility] Comment on above: Order Comment: No: D o not add to previous draw Performed By: #### 3 0313 #### [facility] [address] [facility]. [address] APTTon 04-25-2022 aPTT Coag (Bld) [Time] 49.8 s High 25.0-35.0 [facility] Comment on above: Order Comment: [...] PURPOSE. Performed By: #### 5 0103 #### [facility] [address] [place] [address], [facility] BASIC METABOLIC PANELon 04-08 Calcium [Mass/Vol] 8.8 mg/dL Normal 8.6-10.3 [facility] Comment on above: Order Comment: No: D o not add to previous draw Performed By: #### 3 2044 #### [facility] [address] [place] [address], [facility] Chloride [Moles/Vol] 100 mmol/L Normal 98-107 [facility] Comment on above: Order Comment: No: D o not add to previous draw Performed By: #### 3 2044 #### [facility] [address] [place] [address], [facility] CO2 [Moles/Vol] 27 mmol/L Normal 21-31 [facility] Comment on above: Order Comment: No: D o not add to previous draw Performed By: #### 3 2044 #### [facility] [address] [place] [address], [facility] Creatinine [Mass/Vol] 2.82 mg/dL High 0.70-1.30 [facility] Comment on above: Order Comment: No: D o not add to previous draw Performed By: #### 3 2044 #### [facility] [address] [place] [address], [facility] EGFR 23 ml/min/1.73sq m Abnormal >60 [facility] Comment on above: Order Comment: No: D o not add to previous draw Result Comment: [facility]'s estimated glomerular filtration rate (eGFR) will [...] individuals. Performed By: #### 3 2044 #### [facility] [address] [place] [id number], [facility] Glucose [Mass/Vol] 114 mg/dL High 70-100 [facility] Comment on above: Order Comment: No: D o not add to previous draw Performed By: #### 3 2044 #### [facility] [address] [place] [address], [facility] Potassium [Moles/Vol] 4.4 mmol/L Normal 3.5-5.1 [facility] Comment on above: Order Comment: No: D o not add to previous draw Performed By: #### 3 2044 #### [facility] [address] [facility] [place] [address], [facility] Sodium [Moles/Vol] 137 mmol/L Normal 136-145 [facility] Comment on above: Order Comment: No: D o not add to previous draw Performed By: #### 3 2044 #### [facility] [address] [facility] [place] [address], [facility] Urea nitrogen [Mass/Vol] 61 mg/dL High 7-25 [facility] Comment on above: Order Comment: No: D o not add to previous draw Performed By: #### 3 2044 #### [facility] [address] [facility] [place] [address], [facility] BNP (B-TYPE NATRIURETIC PEPT ANH)on 04-25-2022 Natriuretic peptide B (Bld) [Mass/Vol] 1813 pg/mL High 0-100 [facility] Comment on above: Order Comment: Yes: Add to Previous draw if able Result Comment: Give n the appropriate clinical setting a BNP result of >100 pg/mL indicates congestive heart failure. Performed By: #### 3 2044 #### [facility] [address] [facility] [place] [place] [address], [facility] C REACTIVE PROTEINon 022 CRP [Mass/Vol] 17.2 mg/L High 0.0-7.0 [facility] Comment on above: Order Comment: No: D o not add to previous draw Performed By: #### 5 0103 #### [facility] [address] [facility] [address], [facility] CBC W/DIFFon 04-25-2022 ABS IMM GRANS 0.0 10*3/uL Normal 0.0-0.2 [facility] Comment on above: Performed By: #### 5 0103 #### [facility] [address] [facility] [place] [address], [facility] ABS NEUTROPHILS 5.4 10*3/uL Normal 1.6-7.6 [facility] Comment on above: Performed By: #### 5 0103 #### [facility] [address] [facility] [address], [facility] Basophils (Bld) [#/Vol] 0.0 10*3/uL Normal 0.0-0.2 [facility] Comment on above: Performed By: #### 5 0103 #### [facility] [address] [facility] [place] [address], [facility] Basophils/100 WBC (Bld) 0.6 % Normal 0.0-1.0 [facility] Comment on above: Performed By: #### 5 0103 #### [facility] [address] [facility] [place] [address], [facility] Eosinophils (Bld) [#/Vol] 0.2 10*3/uL Normal 0.0-0.5 [facility] Comment on above: Performed By: #### 5 0103 #### [facility] [address] [facility] [place] [address], [facility] Eosinophils/100 WBC (Bld) 2.5 % Normal 0.0-6.0 [facility] Comment on above: Performed By: #### 5 3 #### [facility] [address] [place] [address], [facility] Erythrocyte distribution width (RBC) [Ratio] 19.9 % High 11.5-15.0 [facility] Comment on above: Performed By: #### 3 #### [facility] [address] [place] [address], [facility] Hematocrit (Bld) [Volume fraction] 31.6 % Low 39.0-50.0 [facility] Comment on above: Performed By: #### 3 #### [facility] [address] [facility] [address], [facility] Hemoglobin (Bld) [Mass/Vol] 9.3 g/dL Low 13.0-17.0 [facility] Comment on above: Performed By: #### 3 #### [facility] [address] [facility] [address], [facility] IMMATURE GRANS 0.2 % Normal 0.0-1.0 [facility] Comment on above: Performed By: #### 3 #### [facility] [address] [facility]. [address] Lymphocytes (Bld) [#/Vol] 0.3 10*3/uL Low 1.2-4.0 [facility] Comment on above: Performed By: #### 5 3 #### [facility] [address] [place] [address], [facility] Lymphocytes/100 WBC (Bld) 4.4 % Low 20.0-45.0 [facility] Comment on above: Performed By: #### 3 #### [facility] [address] [facility] [place] [address], [facility] MCH (RBC) [Entitic mass] 23.1 pg Low 27.0-33.0 [facility] Comment on above: Performed By: #### 3 #### [facility] [address] [facility] [place] [address], [facility] MCHC (RBC) [Mass/Vol] 29.4 g/dL Low 32.0-35.0 [facility] Comment on above: Performed By: #### 3 #### [facility] [address] [facility] [address], [facility] MCV (RBC) [Entitic vol] 78.6 fL Low 82.0-98.0 [facility] Comment on above: Performed By: #### 3 #### [facility] [address] [place] [address], [facility] Monocytes (Bld) [#/Vol] 0.6 10*3/uL Normal 0.1-1.0 [facility] Comment on above: Performed By: #### 102 #### [facility] [address] MONOS 8.9 % Normal 5.0-12.0 [facility] Comment on above: Performed By: #### 102 #### [facility] [address] Neutrophils/100 WBC (Bld) 83.4 % High 40.0-72.0 [facility] Comment on above: Performed By: #### 102 #### [facility] [address] Nucleated RBC/100 WBC (Bld) [Ratio] 0 % Normal 0-0 [facility] Comment on above: Performed By: #### 5 3 #### [facility] [address] [facility] [address], [facility] PLAT CNT 191 10*3/uL Normal 150-400 [facility] Comment on above: Performed By: #### 5 3 #### [facility] [address] [place] [address], [facility] RBC (Bld) [#/Vol] 4.02 10*6/uL Low 4.20-5.70 [facility] Comment on above: Performed By: #### 5 3 #### [facility] [address] WBC (Bld) [#/Vol] 6.43 10*3/uL Normal 4.00-10.60 [facility] Comment on above: Performed By: #### 5 0103 #### [facility] [address] [place] [address], [facility] COMPLEMENT 3on 04-25-2022 COMPLEMENT 3 104 mg/dL Normal 79-152 [facility] Comment on above: Order Comment: No: D o not add to previous draw Performed By: #### 5 0103 #### [facility] [address] [facility] [place] [address], [facility] COMPLEMENT 4on 04-25-2022 COMPLEMENT 4 23 mg/dL Normal 16-38 [facility] Comment on above: Order Comment: No: D o not add to previous draw Performed By: #### 5 0103 #### [facility] [address] [facility]. [address] CPKon 04-25-2022 CK [Catalytic activity/Vol] 23 U/L Low 30-223 [facility] Comment on above: Order Comment: No: D o not add to previous draw Performed By: #### 7 0207 #### [facility] [address] CREATININE URINE RANDOMon Creatinine (U) [Mass/Vol] 104.0 mg/dL Normal [facility] Comment on above: Order Comment: Check Pacemaker/AICD Lead Position, Chest X-ray PA \EANDE\ LAT in Dept ;DO NOT lift affected arm above shoulder. S/P pacemaker/ICD implant. Verify lead placement Result Comment: Ther e are no established reference values for random urine specimens Performed By: #### 4 6009, [id number] ####[facility] [place] [address], [facility] FERRITINon 04-25-2022 Ferritin [Mass/Vol] 50 ng/mL Normal 24-336 [facility] Comment on above: Order Comment: No: D o not add to previous draw Performed By: #### 7 0207 #### [facility] [address] [place] [address], [facility] HEPATITIS B CORE ANTIBODYon 04-25-2022 HEP B CORE AB Non-Reactive Normal NONREACTIVE [facility] Comment on above: Order Comment: No: D o not add to previous draw Performed By: #### 7 0207 #### [facility] [address] [place] [address], [facility] HEPATITIS C ANTIBODYon 04-25 ANTI-HCV Non-Reactive Normal NONREACTIVE [facility] Comment on above: Order Comment: No: D o not add to previous draw Performed By: #### 7 0207 #### [facility] [address] [place] [address], [facility] IMMUNOFIXATION BLOODon 04-25 IgA [Mass/Vol] 733 mg/dL High 60-413 [facility] Comment on above: Performed By: #### 5 0103 #### [facility] [address] [place] [address], [facility] IgG [Mass/Vol] 1330 mg/dL Normal 591-1540 [facility] Comment on above: Performed By: #### 5 0103 #### [facility] [address] [place] [address], [facility] IgM [Mass/Vol] 365 mg/dL High 54-285 [facility] Comment on above: Performed By: #### 5 0103 #### [facility] [address] [place] [address], [facility] IMMUNOFIXATION Normal [facility] Comment on above: Result Comment: Seru m immunofixation reveals a monoclonal [place] M gammopathy. SEE SEPARATE REPORT Performed By: #### 5 0103 #### [facility] [address] [place] [address], [facility] KAPPA LIGHT CHN See [place] report. Normal 0.33-1.94 [facility] Comment on above: Performed By: #### 5 3 #### [facility] [address] [place] [address], [facility] KAPPA/LAMDBA RATIO See [place] report. Normal 0.26-1.65 [facility] Comment on above: Result Comment: For patients with renal impairment, use a kappa/lambda ratio of 0.37-3.10 Performed By: #### 5 102 #### [facility] [address] [place] [address], [place] LAMBDA LIGHT CHN See [place] report. Normal 0.57-2.63 [facility] Comment on above: Performed By: #### 5 102 #### [facility] [address] [place] [address], [facility] LIVER BATTERYon 04-25-2022 Albumin [Mass/Vol] 3.3 g/dL Low 3.5-5.7 [facility] Comment on above: Order Comment: No: D o not add to previous draw Performed By: #### 3 2044 #### [facility] [address] [place] [address], [facility] ALKALINE PHOSPH 78 IU/L Normal 34-104 [facility] Comment on above: Order Comment: No: D o not add to previous draw Performed By: #### 3 2044 #### [facility] [address] [place] [address], [facility] ALT [Catalytic activity/Vol] 15 U/L Normal 7-52 [facility] Comment on above: Order Comment: No: D o not add to previous draw Performed By: #### 3 2044 #### [facility] [address] [place] [address], [place] AST [Catalytic activity/Vol] 16 U/L Normal 13-39 [facility] Comment on above: Order Comment: No: D o not add to previous draw Performed By: #### 3 2044 #### [facility] [address] [place] [address], [facility] Bilirubin [Mass/Vol] 1.2 mg/dL High 0.3-1.0 [facility] Comment on above: Order Comment: No: D o not add to previous draw Performed By: #### 3 2044 #### [facility] [address] [place] [address], [facility] Bilirubin.direct [Mass/Vol] 0.4 mg/dL High 0.0-0.2 [facility] Comment on above: Order Comment: No: D o not add to previous draw Performed By: #### 3 2044 #### [facility] [address] [place] [address], [facility] Protein [Mass/Vol] 6.8 g/dL Normal 6.0-8.3 [facility] Comment on above: Order Comment: No: D o not add to previous draw Performed By: #### 3 2044 #### [facility] [address] [place] [address], [facility] MAGNESIUM BLOODon 04-25-2022 Magnesium [Mass/Vol] 2.7 mg/dL Normal 1.9-2.7 [facility] Comment on above: Order Comment: No: D o not add to previous draw Performed By: #### 3 2044 #### [facility] [address] [place] [address], [facility] PHOSPHORUS BLOODon Phosphate [Mass/Vol] 3.7 mg/dL Normal 2.5-5.0 [facility] Comment on above: Order Comment: No: D o not add to previous draw Performed By: #### 7 0207 #### [facility] [address] [place] [address], [facility] POC SARS COV2 ANTIGEN NEGATI VEon 04-25-2022 POC SARS COV2 ANTIGEN NEG Negative Normal NEGATIVE [facility] Comment on above: Result Comment: Nega [...] antigen from SARS-CoV-2 in direct nasopharyngeal swab (CLEARING SUPERVISOR) specimens from individuals who are suspected of [...] of Accreditation. Performed By: #### 3 4 ####[facility] [place] [address], [facility] PROTEIN ELECT Marcos 04-25-2022 Protein [Mass/Vol] 6.9 g/dL Normal 6.0-8.3 [facility] Comment on above: Order Comment: No: D o not add to previous draw Performed By: #### 7 0207 #### [facility] [address] [place] [address], [facility] Protein [Mass/Vol] 0.20 g/dL High 0.00-0.00 [facility] Comment on above: Order Comment: No: D o not add to previous draw Performed By: #### 7 0207 #### [facility] [address] [place] [address], [facility] PROTEIN ELECT Normal [facility] Comment on above: Order Comment: No: D o not add to previous draw Result Comment: The abnormal band in the gamma globulin region suggests monoclonal gammopathy. SEE SEPARATE REPORT Performed By: #### 7 0207 #### [facility] [address] [facility] [address], [facility] PROTEIN ELECT URon 2 PROTEIN ELECT No abnormal bands se en. SEE SEPARATE REPORT Normal [facility] Comment on above: Order Comment: Check Pacemaker/AICD Lead Position, Chest X-ray PA \EANDE\ LAT in Dept ;DO NOT lift affected arm above shoulder. S/P pacemaker/ICD implant. Verify lead placement Performed By: #### 4 1918, [id number] ####[facility] [facility] [place] [address], [facility] U TOTAL PROTEIN 47.8 mg/dL Normal [facility] Comment on above: Order Comment: Check Pacemaker/AICD Lead Position, Chest X-ray PA \EANDE\ LAT in Dept ;DO NOT lift affected arm above shoulder. S/P pacemaker/ICD implant. Verify lead placement Result Comment: Ther e are no established reference values for random urine specimens Performed By: #### 4 1918, [id number] ####[facility] [facility] [place] [address], [facility] PROTHROMBIN TIMEon 2 INR Coag (PPP) [Relative time] 1.71 {INR} High 0.91-1.16 [facility] Comment on above: Order Comment: [...] 1995;[id number]. Performed By: #### 5 0103 #### [facility] [address] [place] [address], [facility] PT Coag (PPP) [Time] 19.8 s High 12.3-14.8 [facility] Comment on above: Order Comment: No: D o not add to previous draw Result Comment: ALL RESULTS MUST BE INTERPRETED WITH RESPECT TO BLOOD DRAWING ARTIFACT OR DILUTION ERROR OF ANTICOAGULANT AT THE TIME OF SAMPLING. Performed By: #### 5 0103 #### [facility] [address] [place] [address], [facility] SEDIMENTATION RATEon 022 SED RATE 63 mm/hr High 0-10 [facility] Comment on above: Order Comment: No: D o not add to previous draw Performed By: #### 5 0608 #### [facility] [address] [place] [address], [facility] SERUM FREE LIGHT CHAINS ILon 04-25-2022 FREE KAPPA LIGHT CHAINS 14.36 mg/dL High 0.37-1.94 [facility] FREE KAPPA/LAMBDA RATIO 2.00 High 0.26-1.65 [facility] FREE LAMBDA LIGHT CHAINS 7.19 mg/dL High 0.57-2.63 [facility] IL Normal [facility] Comment on above: Result Comment: Test Performed by [employer] [address] [place] [address] - Released 05/02/2022 21:21 Result changed by IF on 05/02/2022 21:21. The previous value was Test Performed by [employer] [address] [place] [phone].. TIBC- INCLUDES IRONon 2021 FE SATURATION 9 % Low 20-50 [facility] Comment on above: Order Comment: No: D o not add to previous draw Performed By: #### 7 0207 #### [facility] [address] [facility] [place] [address], [facility] Iron [Mass/Vol] 31 ug/dL Low 50-212 [facility] Comment on above: Order Comment: No: D o not add to previous draw Performed By: #### 7 0207 #### [facility] [address] [facility] [place] [address], [facility] TIBC 349 mcg/dL Normal 250-450 [facility] Comment on above: Order Comment: No: D o not add to previous draw Performed By: #### 7 0207 #### [facility] [address] [facility] [place] [address], [facility] UIBC 318 mcg/dL Normal 155-355 [facility] Comment on above: Order Comment: No: D o not add to previous draw Performed By: #### 7 0207 #### [facility] [address] [place], [place] [address] [place] [address] TROPONIN-Ion 04-25-2022 Troponin I.cardiac [Mass/Vol] 0.03 ng/mL Normal 0.00-0.04 [facility] Comment on above: Order Comment: No: D o not add to previous draw Result Comment: REFE RENCE RANGES: 0.00 - 0.04 ng/ml NORMAL 0.05 - 0.50 ng/ml INDETERMINATE > 0.50 ng/ml CONSISTENT WITH AN M.I. Performed By: #### 3 2045 #### [facility] [address] [place] [address], [facility] US RENAL WITH BLADDERon 04-08 US RENAL WITH BLADDER [facility] Department of Radiology [address] [place] [id number] Patient Name: MAN PATEL : 1950 Sex: M Age: Race: White Pt. Location: [id number] Patient Status: I Ordered Date: 04/25/2022 3:40:00 [...] cyst. Electronically signed: Joel Lambert. Transcribed by: [email or web address], User Resident: Electronically Signed by: TIFFANIE CASTILLO @ 05/08/2022 08:26 AM Normal [facility] Comment on above: Order Comment: R/O H ydronephrosis BNPon 04-24-2022 Natriuretic peptide B (Bld) [Mass/Vol] 16282.0 pg/mL Critically high <=900.0 [facility] Comment on above: Performed By: #### H STROPN, BNP, BMP ####[facility] [address] [place] [address]Dr. Elba Raj CBC AUTO DIFFon 04-24-2022 BASO # 0.1 103/ul Normal 0.0-0.1 [facility] Comment on above: Performed By: #### C BC ####[facility] Ibem[address] [place], [place] [address]Dr. Elba Anthony Basophils/100 WBC (Bld) 0.8 % Normal 0.2-2.0 [facility] Comment on above: Performed By: #### C BC ####[facility] Crhgwgyn[address] [place], [place] [address]Dr. Elba Anthony EO # 0.2 103/ul Normal 0.0-0.7 [facility] Comment on above: Performed By: #### C BC ####[facility] Lxrqmuvdqz[address] [place], [place] [address]Dr. Elba Anthony Eosinophils/100 WBC (Bld) 3.0 % Normal 0.9-7.0 [facility] Comment on above: Performed By: #### C BC ####[facility] Sdvwevlgzv[address] [place], [place] [address]Dr. Elba Anthony Erythrocyte distribution width (RBC) [Ratio] 20.0 % Critically high 11.0-15.0 [facility] Comment on above: Performed By: #### C BC ####[facility] Cpuymfottq[address] [place], [place] [address]Dr. Elba Anthony Hematocrit (Bld) [Volume fraction] 32.7 % Critically low 42.0-54.0 [facility] Comment on above: Performed By: #### C BC ####[facility] Oljfdqglug[address] [place], [place] [address]Dr. Elba Anthony Hemoglobin (Bld) [Mass/Vol] 9.7 g/dL Critically low 14.0-18.0 [facility] Comment on above: Performed By: #### C BC ####[facility] [address] [place] [address]DrLatoya Anthony IG # 0.02 10e3/ul Normal 0.00-0.03 [facility] Comment on above: Performed By: #### C BC ####[facility] [address] [place] [address]DrLatoya Anthony IG % 0.3 % Normal 0.0-0.5 [facility] Comment on above: Performed By: #### C BC ####[facility] [address] [place] [address]DrLatoya Anthony LYMPH # 0.3 103/ul Critically low 1.2-3.8 [facility] Comment on above: Performed By: #### C BC ####[facility] [address] [place] [address]DrLatoya Anthony Lymphocytes/100 WBC (Bld) 4.9 % Critically low 20.5-60.0 [facility] Comment on above: Performed By: #### C BC ####[facility] [address] [place] [address]DrLatoya Anthony MANUAL DIFF REQ NO Normal [facility] Comment on above: Performed By: #### C BC ####[facility] [address] [place] [address]DrLatoya Anthony MCH (RBC) [Entitic mass] 23.8 pg Critically low 25.9-34.0 [facility] Comment on above: Performed By: #### C BC ####[facility] [address] [place] [address]DrLatoya Anthony MCHC (RBC) [Mass/Vol] 29.7 g/dL Critically low 29.9-35.2 [facility] Comment on above: Performed By: #### C BC ####[facility] [address] [place] [address]DrLatoya Anthony MCV (RBC) [Entitic vol] 80.3 fL Normal 80.0-94.0 [facility] Comment on above: Performed By: #### C BC ####[facility] [address] [place] [address]Dr. Elba Anthony MONO # 0.6 103/ul Normal 0.3-0.8 [facility] Comment on above: Performed By: #### C BC ####[facility] [address]ky[address] [place] [address]Dr. Elba Anthony Monocytes/100 WBC (Bld) 9.6 % Normal 1.7-12.0 [facility] Comment on above: Performed By: #### C BC ####[facility] [address] [place] [address]Dr. Elba Anthony NEUT # 5.2 103/ul Normal 1.4-6.5 [facility] Comment on above: Performed By: #### C BC ####[facility] Geowrmgutk[address] [place], [place] [address]Dr. Elba Anthony Neutrophils/100 WBC (Bld) 81.4 % Critically high 43.0-75.0 [facility] Comment on above: Performed By: #### C BC ####[facility] Hoyduwqhxz[address] [place], [place] [address]Dr. Elba Anthony Platelet mean volume (Bld) [Entitic vol] 10.1 fL Normal 9.5-13.5 [facility] Comment on above: Performed By: #### C BC ####[facility] Fhxnalcdea[address] [place], [place] [address]Dr. Elba Anthony PLT 214 103/ul Normal 150-450 [facility] Comment on above: Performed By: #### C BC ####[facility] Ezfk[address] [place], [place] [address]Dr. Elba Anthony RBC 4.07 106/ul Critically low 4.70-6.10 [facility] Comment on above: Performed By: #### C BC ####[facility] [address] [place] [id number]. Elba Raj WBC 6.4 103/ul Normal 4.0-11.0 [facility] Comment on above: Performed By: #### C BC ####[facility] [address] [place] [address]Dr. Elba Anthony Covid-19 PCR (CVDTB)on 04-08 SARS-CoV-2 (COVID-19) RNA ELIZABETH+probe Ql (Unsp spec) Not detected Normal NOT DETECTED [facility] Comment on above: Result Comment: When [...] for this test is supported by the [place] of Health and Human Service's declaration that [...] be used). Performed By: #### C VDTB ####[facility] [address] [place] [address]Dr. Elba Anthony ER URINE PROFILEon 2 Bilirubin Ql (U) Negative Normal NEGATIVE [facility] Comment on above: Performed By: #### E RUR ####[facility] [address] [place], [place] [address]Dr. Elba Anthony Clarity (U) CLEAR Normal CLEAR [facility] Comment on above: Performed By: #### E RUR ####[facility] B[address]udgq[address] [place], [place] [address]DrLatoya Anthony Color (U) LT. YELLOW Normal YELLOW [facility] Comment on above: Performed By: #### E RUR ####[facility] Tespsldvbk[address] [place], [place] [address]DrLatoya COTTON A micrscopic examina tion will be performed if indicated. Normal [facility] Comment on above: Performed By: #### E RUR ####[facility] Oppfcmjmjt[address] [place], [place] [address]Dr. Elba Anthony Glucose Ql (U) Negative Normal NEGATIVE [facility] Comment on above: Performed By: #### E RUR ####[facility] Opktukkqkg[address] [place], [place] [address]Dr. Elba Raj Hemoglobin Ql (U) Negative Normal NEGATIVE [facility] Comment on above: Performed By: #### E RUR ####[facility] Ablfveoeqf[address] [place], [place] [address]Dr. Nereydasiobhan Raj Ketones Ql (U) Negative Normal NEGATIVE [facility] Comment on above: Performed By: #### E RUR ####[facility] Umlauvgceu[address] [place], [place] [address]Dr. Elba Anthony LEUKOCYTES Negative Normal NEGATIVE [facility] Comment on above: Performed By: #### E RUR ####[facility] Vulecsumbi[address] [place], [place] [address]Dr. Nereydasiobhan Anthony Nitrite Ql (U) Negative Normal NEGATIVE [facility] Comment on above: Performed By: #### E RUR ####[facility] Bondxdjzma[address] [place], [place] [address]Dr. Elba Anthony pH (U) 6.0 [pH] Normal 5-9 [facility] Comment on above: Performed By: #### E RUR ####[facility] Bypliwhcpm[address] [place], [place] [address]Dr. Elba Anthony SPEC GRAVITY 1.010 Normal 1.005-<=1.02 5 [facility] Comment on above: Performed By: #### E RUR ####[facility] Cjppbbycaa[address] [place], [place] [address]Dr. Elba Anthony UA PROTEIN Negative Normal NEGATIVE/ TRACE [facility] Comment on above: Performed By: #### E RUR ####[facility] Lyzluwcsyo[address] [place], [place] [address]Dr. Elba Anthony UR MICRO IND NOT INDICATED Normal [facility] Comment on above: Performed By: #### E RUR ####[facility] Yhhowjkltq[address] [place], [place] [address]Dr. Elba Anthony Urobilinogen Qn (U) 2.0 {Caden'U}/dL Abnormal 0.2 - 1. 0 [facility] Comment on above: Performed By: #### E RUR ####[facility] Nw[address]itfjfl[address] [place], [place] [address]Dr. Elba Anthony PROF CHEM 8 (BAS METB)on Anion gap [Moles/Vol] 16.7 mmol/L Normal [facility] Comment on above: Performed By: #### H STROPN, BNP, BMP ####[facility] Tpwkhvtnkn[address] [place], [place] [address]Dr. Elba Anthony Calcium [Mass/Vol] 9.2 mg/dL Normal 8.5-10.1 [facility] Comment on above: Performed By: #### H STROPN, BNP, BMP ####[facility] Opefezuibp[address] [place], [place] [address]Dr. Elba Anthony Chloride [Moles/Vol] 97 mmol/L Critically low 98-107 [facility] Comment on above: Performed By: #### H STROPN, BNP, BMP ####[facility] Bqtqtpztfm[address] [place], [place] [address]Dr. Elba Anthony CO2 [Moles/Vol] 26.3 mmol/L Normal 21.0-32.0 [facility] Comment on above: Performed By: #### H STROPN, BNP, BMP ####[facility] Vyjcnatqex[address] [place], [place] [address]Dr. Elba Anthony Creatinine [Mass/Vol] 3.32 mg/dL Critically high 0.70-1.30 [facility] Comment on above: Performed By: #### H STROPN, BNP, BMP ####[facility] Jsxrb[address]ls[address] [place], [place] [address]Dr. Elba Anthony EGFR-AF ERITREAN 22 mL/min/1.73m2 Critically low >=60 [facility] Comment on above: Performed By: #### H STROPN, BNP, BMP ####[facility] [address] [place] [address]Dr. Elba Anthony EGFR-NON AF ERITREAN 18 mL/min/1.73m2 Critically low >=60 [facility] Comment on above: Performed By: #### H STROPN, BNP, BMP ####[facility] [address] [place] [address]Dr. Elba Anthony Glucose [Mass/Vol] 158 mg/dL Critically high 74-106 [facility] Comment on above: Performed By: #### H STROPN, BNP, BMP ####[facility] [address]ifubf[address] [place] [address]Dr. Elba Anthony Potassium [Moles/Vol] 5.0 mmol/L Normal 3.5-5.1 [facility] Comment on above: Performed By: #### H STROPN, BNP, BMP ####[facility] [address]afgb[address] [place] [address]Dr. Elba Anthony Sodium [Moles/Vol] 135 mmol/L Critically low 136-145 [facility] Comment on above: Performed By: #### H STROPN, BNP, BMP ####[facility] Jffdcvfwra[address] [place], [place] [address]Dr. Elba Anthony Urea nitrogen [Mass/Vol] 67.0 mg/dL Critically high 7.0-18.0 [facility] Comment on above: Performed By: #### H STROPN, BNP, BMP ####[facility] Pr[address]ckd[address] [place] [address]Dr. Elba Anthony Urea nitrogen/Creatinine [Mass ratio] 20.2 mg/mg Normal [facility] Comment on above: Performed By: #### H STROPN, BNP, BMP ####[facility] Qafaoktvaj[address] [place], [place] [address]Dr. Elba Anthony TROPONIN, HIGH SENSITIVITYon 04-24-2022 HSTROP 36.4 pg/mL Normal 4.0-76.1 [facility] Comment on above: Result Comment: CUT- OFF POINTS HAVE BEEN ESTABLISHED BASED ON THE FOURTH UNIVERSAL DEFINITIONS OF MYOCARDIALINFARCTION. THE UPPER REFERENCE LIMIT (URL) OF TROPONIN, DEFINED THE 99TH PERCENTILE OFcTnI DISTRIBUTION IN A REFERENCE POPULATION, HAS BEEN CONFIRMED THE DECISION THRESHOLDFOR ME DIAGNOSIS. Performed By: #### H STROPN, BNP, BMP ####[facility] Ysopndfdac[address] [place], [place] [address]Dr. Elba Anthony XR CHEST 1 Von 04-24-2022 XR CHEST 1 V Normal [facility] BNPon 04-22-2022 Natriuretic peptide B (Bld) [Mass/Vol] 84163.0 pg/mL Critically high <=900.0 [facility] Comment on above: Performed By: #### B CLEARING SUPERVISOR, BMP ####[facility] Mbbfymztgz[address] [place], [place] [address]Dr. Elba Anthony PROF CHEM 8 (BAS METB)on Anion gap [Moles/Vol] 13.8 mmol/L Normal [facility] Comment on above: Performed By: #### B CLEARING SUPERVISOR, BMP ####[facility] Oxduwbibug[address] [place], [place] [address]Dr. Elba Anthony Calcium [Mass/Vol] 8.7 mg/dL Normal 8.5-10.1 [facility] Comment on above: Performed By: #### B CLEARING SUPERVISOR, BMP ####[facility] Fivgunlgsg[address] [place], [place] [address]Dr. Elba Anthony Chloride [Moles/Vol] 98 mmol/L Normal 98-107 [facility] Comment on above: Performed By: #### B CLEARING SUPERVISOR, BMP ####[facility] Indjbweaeh[address] [place], [place] [address]Dr. Elba Anthony CO2 [Moles/Vol] 29.1 mmol/L Normal 21.0-32.0 [facility] Comment on above: Performed By: #### B CLEARING SUPERVISOR, BMP ####[facility] Ntcex[address]stdg[address] [place], [place] [address]Dr. Elba Anthony Creatinine [Mass/Vol] 2.89 mg/dL Critically high 0.70-1.30 [facility] Comment on above: Performed By: #### B CLEARING SUPERVISOR, BMP ####[facility] [address]ksj[address] [place] [address]Dr. Elba Anthony EGFR-AF ERITREAN 26 mL/min/1.73m2 Critically low >=60 [facility] Comment on above: Performed By: #### B CLEARING SUPERVISOR, BMP ####[facility] Cufpbecvnv[address] [place], [place] [address]Dr. Elba Anthony EGFR-NON AF ERITREAN 22 mL/min/1.73m2 Critically low >=60 [facility] Comment on above: Performed By: #### B CLEARING SUPERVISOR, BMP ####[facility] Zplaywrbma[address] [place], [place] [address]Dr. Elba Anthony Glucose [Mass/Vol] 108 mg/dL Critically high 74-106 T [facility] Comment on above: Performed By: #### B CLEARING SUPERVISOR, BMP ####[facility] Drhmttmljm[address] [place], [place] [address]Dr. Elba Anthony Potassium [Moles/Vol] 4.9 mmol/L Normal 3.5-5.1 [facility] Comment on above: Performed By: #### B CLEARING SUPERVISOR, BMP ####[facility] Dspzxmshwd[address] [place], [place] [address]Dr. Elba Anthony Sodium [Moles/Vol] 136 mmol/L Normal 136-145 [facility] Comment on above: Performed By: #### B CLEARING SUPERVISOR, BMP ####[facility] E[address]oycoip[address] [place], [place] [address]Dr. Elba Anthony Urea nitrogen [Mass/Vol] 63.0 mg/dL Critically high 7.0-18.0 [facility] Comment on above: Performed By: #### B CLEARING SUPERVISOR, BMP ####[facility] Vpzdanlzmd[address] [place], [place] [address]Dr. Elba Anthony Urea nitrogen/Creatinine [Mass ratio] 21.8 mg/mg Normal [facility] Comment on above: Performed By: #### B CLEARING SUPERVISOR, BMP ####[facility] O[address]btbbt[address] [place], [place] [address]Dr. Elba Anthony BNPon 04-15-2022 Natriuretic peptide B (Bld) [Mass/Vol] 81751.0 pg/mL Critically high <=900.0 [facility] Comment on above: Result Comment: repe ated Performed By: #### B CLEARING SUPERVISOR, BMP ####[facility] Mawegestfx[address] [place], [place] [address]Dr. Elba Anthony PROF CHEM 8 (BAS METB)on Anion gap [Moles/Vol] 16.8 mmol/L Normal [facility] Comment on above: Performed By: #### B CLEARING SUPERVISOR, BMP ####[facility] Yumstd[address]rn[address] [place], [place] [address]Dr. Elba Anthony Calcium [Mass/Vol] 8.4 mg/dL Critically low 8.5-10.1 [facility] Comment on above: Performed By: #### B CLEARING SUPERVISOR, BMP ####[facility] [address]wkgjfuh[address] [place], [place] [address]Dr. Elba Anthony Chloride [Moles/Vol] 96 mmol/L Critically low 98-107 [facility] Comment on above: Performed By: #### B CLEARING SUPERVISOR, BMP ####[facility] [address]har[address] [place], [place] [address]Dr. Elba Anthony CO2 [Moles/Vol] 26.9 mmol/L Normal 21.0-32.0 [facility] Comment on above: Performed By: #### B CLEARING SUPERVISOR, BMP ####[facility] [address]zkmcmlqkg[address] [place], [place] [address]Dr. Elba Anthony Creatinine [Mass/Vol] 2.83 mg/dL Critically high 0.70-1.30 [facility] Comment on above: Performed By: #### B CLEARING SUPERVISOR, BMP ####[facility] Vmuctmfvlw[address] [place], [place] [address]Dr. Elba Anthony EGFR-AF ERITREAN 27 mL/min/1.73m2 Critically low >=60 [facility] Comment on above: Performed By: #### B CLEARING SUPERVISOR, BMP ####[facility] Julegirzhf[address] [place], [place] [address]Dr. Elba Anthony EGFR-NON AF ERITREAN 22 mL/min/1.73m2 Critically low >=60 [facility] Comment on above: Performed By: #### B CLEARING SUPERVISOR, BMP ####[facility] [address] [place] [address]Dr. Elba Anthony Glucose [Mass/Vol] 118 mg/dL Critically high 74-106 T [facility] Comment on above: Performed By: #### B CLEARING SUPERVISOR, BMP ####[facility] Cpjsqhudns[address] [place], [place] [address]Dr. Elba Anthony Potassium [Moles/Vol] 4.7 mmol/L Normal 3.5-5.1 [facility] Comment on above: Performed By: #### B CLEARING SUPERVISOR, BMP ####[facility] [address]juwchvg[address] [place], [place] [address]Dr. Elba Anthony Sodium [Moles/Vol] 135 mmol/L Critically low 136-145 Th [facility] Comment on above: Performed By: #### B CLEARING SUPERVISOR, BMP ####[facility] Ekdoqtchlg[address] [place], [place] [address]Dr. Elba Anthony Urea nitrogen [Mass/Vol] 68.0 mg/dL Critically high 7.0-18.0 [facility] Comment on above: Performed By: #### B CLEARING SUPERVISOR, BMP ####[facility] Bufww[address]qyx[address] [place], [place] [address]Dr. Elba Anthony Urea nitrogen/Creatinine [Mass ratio] 24.0 mg/mg Normal [facility] Comment on above: Performed By: #### B CLEARING SUPERVISOR, BMP ####[facility] Ryuaorreac[address] [place], [place] [address]Dr. Elba Anthony BNPon 04-02-2022 Natriuretic peptide B (Bld) [Mass/Vol] 41339.0 pg/mL Critically high <=900.0 [facility] Comment on above: Performed By: #### B CLEARING SUPERVISOR, BMP ####[facility] Flfgiektrd[address] [place], [place] [address]Dr. Elba Anthony PROF CHEM 8 (BAS METB)on Anion gap [Moles/Vol] 9.7 mmol/L Normal [facility] Comment on above: Performed By: #### B CLEARING SUPERVISOR, BMP ####[facility] Rduxeiwymx[address] [place], [place] [address]Dr. Elba Anthony Calcium [Mass/Vol] 8.8 mg/dL Normal 8.5-10.1 [facility] Comment on above: Performed By: #### B CLEARING SUPERVISOR, BMP ####[facility] [address]zfwxemrxz[address] [place], [place] [address]Dr. Elba Anthony Chloride [Moles/Vol] 99 mmol/L Normal 98-107 [facility] Comment on above: Performed By: #### B CLEARING SUPERVISOR, BMP ####[facility] Oosapymoqk[address] [place], [place] [address]Dr. Elba Anthony CO2 [Moles/Vol] 31.1 mmol/L Normal 21.0-32.0 [facility] Comment on above: Performed By: #### B CLEARING SUPERVISOR, BMP ####[facility] Foihvttrey[address] [place], [place] [address]Dr. Elba Anthony Creatinine [Mass/Vol] 2.45 mg/dL Critically high 0.70-1.30 [facility] Comment on above: Performed By: #### B CLEARING SUPERVISOR, BMP ####[facility] Uacinuonot[address] [place], [place] [address]Dr. Elba Anthony EGFR-AF ERITREAN 32 mL/min/1.73m2 Critically low >=60 [facility] Comment on above: Performed By: #### B CLEARING SUPERVISOR, BMP ####[facility] Pcfrdrzhzb[address] [place], [place] [address]Dr. Elba Anthony EGFR-NON AF ERITREAN 26 mL/min/1.73m2 Critically low >=60 [facility] Comment on above: Performed By: #### B CLEARING SUPERVISOR, BMP ####[facility] Igflsstojc[address] [place], [place] [address]Dr. Elba Anthony Glucose [Mass/Vol] 101 mg/dL Normal 74-106 [facility] Comment on above: Performed By: #### B CLEARING SUPERVISOR, BMP ####[facility] Makophjrnh[address] [place], [place] [address]Dr. Elba Anthony Potassium [Moles/Vol] 3.8 mmol/L Normal 3.5-5.1 [facility] Comment on above: Performed By: #### B CLEARING SUPERVISOR, BMP ####[facility] [address]ds[address]ysv[address] [place] [address]Dr. Elba Anthony Sodium [Moles/Vol] 136 mmol/L Normal 136-145 [facility] Comment on above: Performed By: #### B CLEARING SUPERVISOR, BMP ####[facility] Ovtpopiwri7[address] [place], [place] [address]Dr. Elba Anthony Urea nitrogen [Mass/Vol] 46.0 mg/dL Critically high 7.0-18.0 [facility] Comment on above: Performed By: #### B CLEARING SUPERVISOR, BMP ####[facility] Bsjlqsakac[address] [place], [place] [address]Dr. Elba Anthony Urea nitrogen/Creatinine [Mass ratio] 18.8 mg/mg Normal [facility] Comment on above: Performed By: #### B CLEARING SUPERVISOR, BMP ####[facility] Glqofkitzu[address] [place], [place] [address]Dr. Elba Anthony CBC W MANUAL DIFFon 04-01-20 22 ANISOCYTOSIS 1+ Normal [facility] Comment on above: Performed By: #### C ADALGISA ####[facility] Ymmbrnuyyk[address] [place], [place] [address]Dr. Elba Anthony ATYPICAL LYMPH # 0.00 103/ul Normal [facility] Comment on above: Performed By: #### C ADALGISA ####[facility] Mnmomazswz[address] [place], [place] [address]Dr. Elba Anthony ATYPICAL LYMPH % 0 % Normal [facility] Comment on above: Performed By: #### C ADALGISA ####[facility] Pjduetcluz[address] [place], [place] [address]Dr. Elba Anthony BAND # 0.4 103/ul Critically high 0.0-0.3 [facility] Comment on above: Performed By: #### C BCVINCENT ####[facility] Kqyzghuvbl[address] [place], [place] [address]Dr. Elba Anthony BAND % 4 % Normal 0-5 [facility] Comment on above: Performed By: #### C ADALGISA ####[facility] Udsfvtlhgq[address] [place], [place] [address]Dr. Elba Raj BASOM # 0.00 103/ul Normal 0.00-0.10 [facility] Comment on above: Performed By: #### C ADALGISA ####[facility] Bsxgrlfoib[address] [place] [address]Dr. Elba Anthony BASOM % 0.0 % Critically low 0.2-2.0 [facility] Comment on above: Performed By: #### C ADALGISA ####[facility] Luallkeqsk[address] [place] [address]Dr. Elba Anthony BLAST # 0.0 103/ul Normal [facility] Comment on above: Performed By: #### C ADALGISA ####[facility] Wdztawiucn[address] [place] [address]Dr. Elba Anthony BLAST % 0 % Normal [facility] Comment on above: Performed By: #### C ADALGISA ####[facility] Vbfaqriynh[address] [place], [place] [address]Dr. Elba Anthony CORRECTED WBC Normal 4.0-11.0 [facility] Comment on above: Performed By: #### C ADALGISA ####[facility] Izrzvshsvg[address] [place], [place] [address]Dr. Elba Anthony EOS # 0.00 103/ul Normal 0.00-0.70 [facility] Comment on above: Performed By: #### C ADALGISA ####[facility] Nvhrqziite[address] [place], [place] [address]Dr. Elba Anthony EOS% 0.0 % Critically low 0.9-7.0 [facility] Comment on above: Performed By: #### C ADALGISA ####[facility] Wsihhbgntw[address] [place], [place] [address]Dr. Elba Anthony HCT 31.3 % Critically low 42.0-54.0 [facility] Comment on above: Performed By: #### C ADALGISA ####[facility] Nwyibtodop[address] [place], [place] [address]Dr. Elba Anthony HGB 9.2 g/dl Critically low 14.0-18.0 [facility] Comment on above: Performed By: #### C ADALGISA ####[facility] Cojmluoksm[address] [place], [place] [address]Dr. Elba Anthony HYPOCHROMASIA SLIGHT Normal [facility] Comment on above: Performed By: #### C ADALGISA ####[facility] Q[address]xtoorry[address] [place] [id number]. Elba Anthony LYMPHM # 0.32 103/ul Critically low 1.20-3.80 [facility] Comment on above: Performed By: #### C ADALGISA ####[facility] Pqfvjqgmqc6474 [place] [phone]. Elba Anthony LYMPHM% 3.0 % Critically low 20.5-60.0 [facility] Comment on above: Performed By: #### C ADALGISA ####[facility] Egthrufudo[address] [place] [address]Dr. Elba Anthony MCH 23.2 pg Critically low 25.9-34.0 [facility] Comment on above: Performed By: #### C ADALGISA ####[facility] Xvvtrsbqyo1846 [place] [address]Dr. Elba Anthony MCHC 29.4 g/dl Critically low 29.9-35.2 [facility] Comment on above: Performed By: #### C ADALGISA ####[facility] Gsekbsymjb[address] [place] [address]Dr. Elba Anthony MCV 79.0 fL Critically low 80.0-94.0 [facility] Comment on above: Performed By: #### C ADALGISA ####[facility] Swkutiwrnh[address] [place] [address]Dr. Elba Anthony METAMYELOCYTE # 0.1 103/ul Normal [facility] Comment on above: Performed By: #### C ADALGISA ####[facility] Bcjqewldyx[address] [place] [address]Dr. Elba Anthony METAMYELOCYTE % 1 % Normal [facility] Comment on above: Performed By: #### C ADALGISA ####[facility] Auhpaevgtq[address] [place] [address]Dr. Elba Anthony MICROCYTOSIS SLIGHT Normal [facility] Comment on above: Performed By: #### C ADALGISA ####[facility] Ftzwhzogdi[address] [place] [phone]. Elba Anthony MONOM# 0.32 103/ul Normal 0.30-0.80 [facility] Comment on above: Performed By: #### C ADALGISA ####[facility] Pcsiscnaaj9[address] [place] [phone]. Elba Anthony MONOM% 3.0 % Normal 1.7-12.0 [facility] Comment on above: Performed By: #### C ADALGISA ####[facility] Juznodbaik[address] [place] [phone]. Elba Anthony MPV 9.9 fL Normal 9.5-13.5 [facility] Comment on above: Performed By: #### C ADALGISA ####[facility] Cvkphvxmqu4376 [place] [phone]. Elba Anthony MYELOCYTE # 0.0 103/ul Normal [facility] Comment on above: Performed By: #### C ADALGISA ####[facility] Koxqnhxezs[address] [place], [place] [address]Dr. Elba Anthony MYELOCYTE % 0 % Normal [facility] Comment on above: Performed By: #### C ADALGISA ####[facility] Cuwqbtmolg[address] [place], [place] [address]Dr. Elba Anthony NRBC 0 Normal [facility] Comment on above: Performed By: #### C ADALGISA ####[facility] [address]zrtatfch[address] [place] [phone]. Elba Anthony PLT 167 103/ul Normal 150-450 [facility] Comment on above: Performed By: #### C ADALGISA ####[facility] Dbbjuajcxc39[address] [place] [phone]. Elba Anthony RBC 3.96 106/ul Critically low 4.70-6.10 [facility] Comment on above: Performed By: #### C ADALGSIA ####[facility] Envwyzelcl[address] [place] [phone]. Elba Anthony RDW 19.8 % Critically high 11.0-15.0 [facility] Comment on above: Performed By: #### C BCMAN ####[facility] J[address]twjckyc[address] [place] [address]Dr. Elba Anthony SEG # 9.52 103/ul Critically high 1.40-6.50 [facility] Comment on above: Performed By: #### C BCMAN ####[facility] Cjiuawenkj3[address] [place] [phone]. Elba Anthony SEG % 89.0 % Critically high 43.0-75.0 [facility] Comment on above: Performed By: #### C BCMAN ####[facility] Cisrhnqoiq[address] [place] [address]Dr. Elba Raj WBC 10.7 103/ul Normal 4.0-11.0 [facility] Comment on above: Performed By: #### C SULEIMANMAN ####[facility] Cfrxuidwne[address] [place] [address] CT CSPINE WO CONon CT CSPINE WO CON Normal [facility] CT HEAD WO CONon 04-01-2022 CT HEAD WO CON Normal [facility] PROF 14(COMP METB)on 022 Albumin [Mass/Vol] 2.8 g/dL Critically low 3.4-5.0 [facility] Comment on above: Performed By: #### C MP ####[facility] Tjqxokishz[address] [place], [place] [address]Dr. Elba Anthony Albumin/Globulin [Mass ratio] 0.6 {ratio} Normal [facility] Comment on above: Performed By: #### C MP ####[facility] Ljpcnmqsjh9[address] [place] [address]Dr. Elba Anthony ALP [Catalytic activity/Vol] 81 U/L Normal 46-116 [facility] Comment on above: Performed By: #### C MP ####[facility] Xuooktcvds[address] [place] [address]Dr. Elba Anthony ALT [Catalytic activity/Vol] 15 U/L Critically low 16-63 [facility] Comment on above: Performed By: #### C MP ####[facility] Azbufdajjy9[address] [place] [address]Dr. Elba Anthony Anion gap [Moles/Vol] 9.2 mmol/L Normal [facility] Comment on above: Performed By: #### C MP ####[facility] Vuvrovpzla[address] [place] [address]Dr. Elba Anthony AST [Catalytic activity/Vol] 21 U/L Normal 15-37 [facility] Comment on above: Performed By: #### C MP ####[facility] Xwwdcafhuq[address] [place], [place] [address]Dr. Elba Anthony Bilirubin [Mass/Vol] 1.7 mg/dL Critically high 0.2-1.0 [facility] Comment on above: Performed By: #### C MP ####[facility] Wvpyaniuzu[address] [place], [place] [address]Dr. Elba Anthony Calcium [Mass/Vol] 9.0 mg/dL Normal 8.5-10.1 [facility] Comment on above: Performed By: #### C MP ####[facility] Rsyghftvdz[address] [place], [place] [address]Dr. Elba Anthony Chloride [Moles/Vol] 99 mmol/L Normal 98-107 [facility] Comment on above: Performed By: #### C MP ####[facility] Hhykbrkqak[address] [place], [place] [address]Dr. Elba Anthony CO2 [Moles/Vol] 30.7 mmol/L Normal 21.0-32.0 [facility] Comment on above: Performed By: #### C MP ####[facility] Wwevsmrszo[address] [place], [place] [address]Dr. Elba Anthony Creatinine [Mass/Vol] 2.60 mg/dL Critically high 0.70-1.30 [facility] Comment on above: Performed By: #### C MP ####[facility] Cbhjvufftx[address] [place], [place] [address]Dr. Elba Anthony EGFR-AF ERITREAN 30 mL/min/1.73m2 Critically low >=60 [facility] Comment on above: Performed By: #### C MP ####[facility] [address]iksocbdip[address] [place] [address]Dr. Elba Anthony EGFR-NON AF ERITREAN 25 mL/min/1.73m2 Critically low >=60 [facility] Comment on above: Performed By: #### C MP ####[facility] Srcxomqmcp39[address] [place] [address]Dr. Elba Anthony Globulin (S) [Mass/Vol] 4.4 g/dL Normal [facility] Comment on above: Performed By: #### C MP ####[facility] Flzoixfple[address] [place] [address]Dr. Elba Anthony Glucose [Mass/Vol] 130 mg/dL Critically high 74-106 [facility] Comment on above: Performed By: #### C MP ####[facility] Ksvpuadlca[address] [place], [place] [address]Dr. Elba Anthony Potassium [Moles/Vol] 3.9 mmol/L Normal 3.5-5.1 [facility] Comment on above: Performed By: #### C MP ####[facility] Tebybujxxx[address] [place], [place] [address]Dr. Elba Anthony Protein [Mass/Vol] 7.2 g/dL Normal 6.4-8.2 [facility] Comment on above: Performed By: #### C MP ####[facility] Ypnhztcmtj[address] [place], [place] [address]Dr. Elba Anthony Sodium [Moles/Vol] 135 mmol/L Critically low 136-145 [facility] Comment on above: Performed By: #### C MP ####[facility] Apqkedvsyv99[address] [place] [address]Dr. Elba Anthony Urea nitrogen [Mass/Vol] 41.0 mg/dL Critically high 7.0-18.0 [facility] Comment on above: Performed By: #### C MP ####[facility] Fvijdlcmil[address] [place], [place] [address]Dr. Elba Anthony Urea nitrogen/Creatinine [Mass ratio] 15.8 mg/mg Normal [facility] Comment on above: Performed By: #### C MP ####[facility] Dtrvytpqyw5[address] [place] [address]Dr. Elba Anthony XR CHEST 1 Von 04-01-2022 XR CHEST 1 V Normal [facility] BNPon 01-07-2022 Natriuretic peptide B (Bld) [Mass/Vol] 9964.0 pg/mL Critically high <=900.0 [facility] Comment on above: Performed By: #### C MP, BNP ####[facility] Gxytqkpkku6206 [place] [address]Dr. Elba Raj CBC W MANUAL DIFFon 01-08-20 22 ATYPICAL LYMPH # Normal [facility] Comment on above: Performed By: #### C BCMAN ####[facility] Qpvpbewhbl[address] [place], [place] [address]Dr. Elba Raj ATYPICAL LYMPH % Normal [facility] Comment on above: Performed By: #### C BCMAN ####[facility] Vhujrwfwlc[address] [place], [place] [address]Dr. Elba Raj BAND # 0.1 103/ul Normal 0.0-0.3 [facility] Comment on above: Performed By: #### C BCMAN ####[facility] Hnqbiekytr[address] [place], [place] [address]Dr. Elba Raj BAND % 1 % Normal 0-5 [facility] Comment on above: Performed By: #### C BCMAN ####[facility] Qyweuvsidj[address] [place], [place] [address]Dr. Nereydasiobhan Raj BASOM # 0.00 103/ul Normal 0.00-0.10 [facility] Comment on above: Performed By: #### C BCMAN ####[facility] Bhrvnpukij[address] [place], [place] [address]Dr. Nereydasiobhan Anthony BASOM % 0.0 % Critically low 0.2-2.0 [facility] Comment on above: Performed By: #### C BCMAN ####[facility] Apzhtmkjcs[address] [place], [place] [address]Dr. Elba Anthony BLAST # Normal [facility] Comment on above: Performed By: #### C BCMAN ####[facility] Yijlnjaeim[address] [place], [place] [address]Dr. Ebla Anthony BLAST % Normal [facility] Comment on above: Performed By: #### C BCVINCENT ####[facility] Dwtgrwtmgo0703 [place] [phone]. Elba Anthony CORRECTED WBC Normal 4.0-11.0 [facility] Comment on above: Performed By: #### C BCVINCENT ####[facility] Sycnskfxpw2502 [place] [phone]. Elba Anthony EOS # 0.07 103/ul Normal 0.00-0.70 [facility] Comment on above: Performed By: #### C BCVINCENT ####[facility] Yenxfbjehv[address] [place] [address]Dr. Elba Anthony EOS% 1.0 % Normal 0.9-7.0 [facility] Comment on above: Performed By: #### C ADALGISA ####[facility] Oyimkseeew[address] [place] [address]Dr. Elba Anthony HCT 33.4 % Critically low 42.0-54.0 [facility] Comment on above: Performed By: #### C ADALGISA ####[facility] Ytpbrhdwxg1144 [place] [phone]. Elba Anthony HGB 9.8 g/dl Critically low 14.0-18.0 [facility] Comment on above: Performed By: #### C ADALGISA ####[facility] Kjjmqhltat[address] [place] [address]Dr. Elba Anthony LYMPHM # 0.44 103/ul Critically low 1.20-3.80 [facility] Comment on above: Performed By: #### C ADALGISA ####[facility] Wclafsgful1729 [place] [phone]. Elba Anthony LYMPHM% 6.0 % Critically low 20.5-60.0 [facility] Comment on above: Performed By: #### C BCVINCENT ####[facility] Zgtjjfszes3060 [place] [phone]. Elba Anthony MCH 24.1 pg Critically low 25.9-34.0 [facility] Comment on above: Performed By: #### C ADALGISA ####[facility] Huoccechgg2843 [place] [phone]. Elba Anthony MCHC 29.3 g/dl Critically low 29.9-35.2 [facility] Comment on above: Performed By: #### C ADALGISA ####[facility] Rnkrcdvlft9266 [place] [phone]. Elba Anthony MCV 82.1 fL Normal 80.0-94.0 [facility] Comment on above: Performed By: #### C ADALGISA ####[facility] Xxadutwcvg9703 [place] [phone]. Elba Anthony METAMYELOCYTE # Normal [facility] Comment on above: Performed By: #### C ADALGISA ####[facility] [address]iuytwtouv[address] [place], [place] [address]Dr. Elba Anthony METAMYELOCYTE % Normal [facility] Comment on above: Performed By: #### Abdoul DIANA ####[facility] Qruitheloq[address] [place], [place] [address]Dr. Elba Anthony MONOM# 0.52 103/ul Normal 0.30-0.80 [facility] Comment on above: Performed By: #### Abdoul DIANA ####[facility] Luaxvlgiak[address] [place], [place] [address]Dr. Elba Anthony MONOM% 7.0 % Normal 1.7-12.0 [facility] Comment on above: Performed By: #### Abdoul DIANA ####[facility] [address]nsx[address]vt[address] [place], [place] [address]Dr. Elba Anthony MPV 9.5 fL Normal 9.5-13.5 [facility] Comment on above: Performed By: #### Abdoul DIANA ####[facility] B[address]wxsmiwz[address] [place], [place] [address]Dr. Elba Anthony MYELOCYTE # Normal [facility] Comment on above: Performed By: #### Abdoul DIANA ####[facility] Xroeeeglrj[address] [place], [place] [address]Dr. Elba Anthony MYELOCYTE % Normal [facility] Comment on above: Performed By: #### C ADALGISA ####[facility] Alwvprvjgk4652 [place] [phone]. Elba Anthony NRBC Normal [facility] Comment on above: Performed By: #### C ADALGISA ####[facility] Owykepdbdh3319 [place] [phone]. Elba Anthony PLT 247 103/ul Normal 150-450 [facility] Comment on above: Performed By: #### C ADALGISA ####[facility] Kreblumxll7240 [place] [phone]. Elba Anthony RBC 4.07 106/ul Critically low 4.70-6.10 [facility] Comment on above: Performed By: #### Abdoul DIANA ####[facility] Kakgnxgvnq[address] [place] [address]Dr. Elba Anthony RDW 18.7 % Critically high 11.0-15.0 [facility] Comment on above: Performed By: #### Abdoul DIANA ####[facility] Xvjsukzrcp1078 [place] [phone]. Elba Anthony SEG # 6.29 103/ul Normal 1.40-6.50 [facility] Comment on above: Performed By: #### Abdoul DIANA ####[facility] Cmnnymahxc6203 [place] [phone]. Elba Anthony SEG % 85.0 % Critically high 43.0-75.0 [facility] Comment on above: Performed By: #### Abdoul DIANA ####[facility] Abykhiejai5927 [place] [phone]. Elba Anthony WBC 7.4 103/ul Normal 4.0-11.0 [facility] Comment on above: Performed By: #### Abdoul DIANA ####[facility] Ipmaczeqdz[address] [place], [place] [address]Dr. Elba Anthony ER URINE PROFILEon 2 Bilirubin Ql (U) Negative Normal NEGATIVE [facility] Comment on above: Performed By: #### E RUR ####[facility] Oahcaslxlp9[address] [place] [phone]. Elba Anthony Clarity (U) CLEAR Normal CLEAR [facility] Comment on above: Performed By: #### E RUR ####[facility] [address]egikpjnhi[address] [place], [place] [address]Dr. Elba Anthony Color (U) LT. YELLOW Normal YELLOW [facility] Comment on above: Performed By: #### E RUR ####[facility] [address]wxdcfifxy[address] [place], [place] [address]Dr. Elba Anthony ERUAHD A micrscopic examina tion will be performed if indicated. Normal [facility] Comment on above: Performed By: #### E RUR ####[facility] Gdfuhehbjc[address] [place], [place] [address]Dr. Elba Anthony Glucose Ql (U) Negative Normal NEGATIVE [facility] Comment on above: Performed By: #### E RUR ####[facility] Iizztlqkta[address] [place], [place] [address]Dr. Elba Anthony Hemoglobin Ql (U) Negative Normal NEGATIVE [facility] Comment on above: Performed By: #### E RUR ####[facility] Ktmivgvmoe[address] [place], [place] [address]Dr. Elba Anthony Ketones Ql (U) Negative Normal NEGATIVE [facility] Comment on above: Performed By: #### E RUR ####[facility] [address]xiljfuc[address] [place], [place] [address]Dr. Elba Anthony LEUKOCYTES Negative Normal NEGATIVE [facility] Comment on above: Performed By: #### E RUR ####[facility] Btjnlsgpxv[address] [place], [place] [address]Dr. Elba Anthony Nitrite Ql (U) Negative Normal NEGATIVE [facility] Comment on above: Performed By: #### E RUR ####[facility] Gblpvzybpi50[address] [place], [place] [address]Dr. Elba Anthony pH (U) 5.0 [pH] Normal 5-9 [facility] Comment on above: Performed By: #### E RUR ####[facility] Fqrvuappnd[address] [place], [place] [address]Dr. Elba Anthony SPEC GRAVITY <=1.005 Abnormal 1.005-<=1.02 5 [facility] Comment on above: Performed By: #### E RUR ####[facility] Bqclclwopz[address] [place], [place] [address]Dr. Elba Anthony UA PROTEIN Negative Normal NEGATIVE/ TRACE [facility] Comment on above: Performed By: #### E RUR ####[facility] Hoiniowkii5[address] [place], [place] [address]Dr. Elba Anthony UR MICRO IND NOT INDICATED Normal [facility] Comment on above: Performed By: #### E RUR ####[facility] Gmckdqaksl[address] [place], [place] [address]Dr. Elba Anthony Urobilinogen Qn (U) 0.2 {Caden'U}/dL Normal 0.2 - 1. 0 [facility] Comment on above: Performed By: #### E RUR ####[facility] Angxppgdwv438[address] [place], [place] [address]Dr. Elba Anthony PROF 14(COMP METB)on 022 Albumin [Mass/Vol] 2.9 g/dL Critically low 3.4-5.0 [facility] Comment on above: Performed By: #### C MP, BNP ####[facility] Madzrqenii[address] [place], [place] [address]Dr. Elba Anthony Albumin/Globulin [Mass ratio] 0.6 {ratio} Normal [facility] Comment on above: Performed By: #### C MP, BNP ####[facility] Fbqdsxkqyg[address] [place], [place] [address]Dr. Elba Anthony ALP [Catalytic activity/Vol] 105 U/L Normal 46-116 [facility] Comment on above: Performed By: #### C MP, BNP ####[facility] Cgroxsjmwk425[address] [place], [place] [address]Dr. Elba Anthony ALT [Catalytic activity/Vol] 27 U/L Normal 16-63 [facility] Comment on above: Performed By: #### C MP, BNP ####[facility] Rkrukhgort[address] [place], [place] [address]Dr. Elba Anthony Anion gap [Moles/Vol] 10.7 mmol/L Normal [facility] Comment on above: Performed By: #### C MP, BNP ####[facility] Kvdqrzepfp[address] [place], [place] [address]Dr. Elba Anthony AST [Catalytic activity/Vol] 20 U/L Normal 15-37 [facility] Comment on above: Performed By: #### C MP, BNP ####[facility] Ypdvzdrecy99[address] [place], [place] [address]Dr. Elba Anthony Bilirubin [Mass/Vol] 1.1 mg/dL Critically high 0.2-1.0 [facility] Comment on above: Performed By: #### C MP, BNP ####[facility] Qihbuxzqwg28[address] [place], [place] [address]Dr. Elba Anthony Calcium [Mass/Vol] 8.2 mg/dL Critically low 8.5-10.1 [facility] Comment on above: Performed By: #### C MP, BNP ####[facility] Gejiqzxglw87[address] [place], [place] [address]Dr. Elba Anthony Chloride [Moles/Vol] 99 mmol/L Normal 98-107 [facility] Comment on above: Performed By: #### C MP, BNP ####[facility] Vzmtoiohlp[address] [place], [place] [address]Dr. Elba Anthony CO2 [Moles/Vol] 28.6 mmol/L Normal 21.0-32.0 [facility] Comment on above: Performed By: #### C MP, BNP ####[facility] Sqotwncyiy250[address] [place], [place] [address]Dr. Nereydasiobhan Raj Creatinine [Mass/Vol] 2.06 mg/dL Critically high 0.70-1.30 [facility] Comment on above: Performed By: #### C MP, BNP ####[facility] Lbczcrytqa[address] [place], [place] [address]Dr. Elba Raj EGFR-AF ERITREAN 39 mL/min/1.73m2 Critically low >=60 [facility] Comment on above: Performed By: #### C MP, BNP ####[facility] Olvyhrhpnw07[address] [place], [place] [address]Dr. Elba Anthony EGFR-NON AF ERITREAN 32 mL/min/1.73m2 Critically low >=60 [facility] Comment on above: Performed By: #### C MP, BNP ####[facility] [address] [place] [address]Dr. Elba Anthony Globulin (S) [Mass/Vol] 4.6 g/dL Normal [facility] Comment on above: Performed By: #### C MP, BNP ####[facility] Hwrwgimvea[address] [place] [address]Dr. Elba Anthony Glucose [Mass/Vol] 113 mg/dL Critically high 74-106 [facility] Comment on above: Performed By: #### C MP, BNP ####[facility] Vknkqgptcf1183 [place] [address]Dr. Elba Anthony Potassium [Moles/Vol] 4.3 mmol/L Normal 3.5-5.1 [facility] Comment on above: Performed By: #### C MP, BNP ####[facility] Gbvgtjwvem3241 [place] [address]Dr. Elba Anthony Protein [Mass/Vol] 7.5 g/dL Normal 6.1-8.2 [facility] Comment on above: Performed By: #### C MP, BNP ####[facility] Kswdxfvnxe15[address] [place] [address]Dr. Elba Anthony Sodium [Moles/Vol] 134 mmol/L Critically low 136-145 [facility] Comment on above: Performed By: #### C MP, BNP ####[facility] Owwedxzsvv57[address] [place] [address]Dr. Elba Anthony Urea nitrogen [Mass/Vol] 48.0 mg/dL Critically high 7.0-18.0 [facility] Comment on above: Performed By: #### C MP, BNP ####[facility] Vroyqikkru119[address] [place] [address]Dr. Elba Anthony Urea nitrogen/Creatinine [Mass ratio] 23.3 mg/mg Normal [facility] Comment on above: Performed By: #### C MP, BNP ####[facility] [address] [place] [id number]. Elba Anthony US ARLIN DOP LEG LTon 01-08-20 22 US ARLIN DOP LEG LT Normal [facility] XR CHEST 1 Von 01-07-2022 XR CHEST 1 V Normal [facility] CBC AUTO DIFFon 12-17-2021 BASO # 0.0 103/ul Normal 0.0-0.1 [facility] Comment on above: Performed By: #### C BC ####[facility] Bkyjaytqmk4[address] [place] [id number]. Nereydasiobhan Anthony Basophils/100 WBC (Bld) 0.1 % Critically low 0.2-2.0 [facility] Comment on above: Performed By: #### C BC ####[facility] Cqrpcozvvm[address] [place] [address]Dr. Nereydasiobhan Anthony EO # 0.1 103/ul Normal 0.0-0.7 [facility] Comment on above: Performed By: #### C BC ####[facility] Lhzowgupvq8[address] [place] [address]Dr. Nereydasiobhan Anthony Eosinophils/100 WBC (Bld) 1.2 % Normal 0.9-7.0 [facility] Comment on above: Performed By: #### C BC ####[facility] Tbndxivyox6307 [place] [address]Dr. Elba Raj Erythrocyte distribution width (RBC) [Ratio] 18.6 % Critically high 11.0-15.0 [facility] Comment on above: Performed By: #### C BC ####[facility] Rlofhmhhsw[address] [place] [address]Dr. Nereydasiobhan Anthony Hematocrit (Bld) [Volume fraction] 29.8 % Critically low 42.0-54.0 [facility] Comment on above: Performed By: #### C BC ####[facility] Yqjuabvjci[address] [place] [address]Dr. Elba Anthony Hemoglobin (Bld) [Mass/Vol] 9.0 g/dL Critically low 14.0-18.0 [facility] Comment on above: Performed By: #### C BC ####[facility] Nsuttfhxnu1296 [place] [id number]. Elba Anthony IG # 0.05 10e3/ul Critically high 0.00-0.03 [facility] Comment on above: Performed By: #### C BC ####[facility] Wrxthxdptu99[address] [place] [address]Dr. Elba Anthony IG % 0.6 % Critically high 0.0-0.5 [facility] Comment on above: Performed By: #### C BC ####[facility] Bxdohpagmz7[address] [place] [address]Dr. Elba Anthony LYMPH # 0.4 103/ul Critically low 1.2-3.8 [facility] Comment on above: Performed By: #### C BC ####[facility] Kjeownlnvl4273 [place] [address]Dr. Elba Anthony Lymphocytes/100 WBC (Bld) 4.0 % Critically low 20.5-60.0 [facility] Comment on above: Performed By: #### C BC ####[facility] Zqvmmloqpv18[address] [place] [address]Dr. Nereydasiobhan Anthony MANUAL DIFF REQ NO Normal [facility] Comment on above: Performed By: #### C BC ####[facility] Rvlqgkpcbw3549 [place] [address]Dr. Elba Raj MCH (RBC) [Entitic mass] 25.2 pg Critically low 25.9-34.0 [facility] Comment on above: Performed By: #### C BC ####[facility] Egrwrownfb[address] [place], [place] [address]Dr. Elba Anthony MCHC (RBC) [Mass/Vol] 30.2 g/dL Normal 29.9-35.2 [facility] Comment on above: Performed By: #### C BC ####[facility] Rwbzglazyq6361 [place] [address]Dr. Elba aRj MCV (RBC) [Entitic vol] 83.5 fL Normal 80.0-94.0 [facility] Comment on above: Performed By: #### C BC ####[facility] Bbliaxzobq8544 [place] [id number]. Elba Anthony MONO # 0.9 103/ul Critically high 0.3-0.8 [facility] Comment on above: Performed By: #### C BC ####[facility] Khuyebnhoh9663 [place] [phone]. Elba Anthony Monocytes/100 WBC (Bld) 9.7 % Normal 1.7-12.0 [facility] Comment on above: Performed By: #### C BC ####[facility] Irffwwdygl8213 [place] [id number]. Elba Anthony NEUT # 7.6 103/ul Critically high 1.4-6.5 [facility] Comment on above: Performed By: #### C BC ####[facility] Cqeeguvoka5348 [place] [phone]. Elba Anthony Neutrophils/100 WBC (Bld) 84.4 % Critically high 43.0-75.0 [facility] Comment on above: Performed By: #### C BC ####[facility] Rbdplsmkpa3754 [place] [phone]. Elba Anthony Platelet mean volume (Bld) [Entitic vol] 10.0 fL Normal 9.5-13.5 [facility] Comment on above: Performed By: #### C BC ####[facility] Rzcgryfmjr3554 [place] [id number]. Elba Anthony PLT 154 103/ul Normal 150-450 [facility] Comment on above: Performed By: #### C BC ####[facility] Tqselipvia[address] [place], [place] [address]Dr. Elba Anthony RBC 3.57 106/ul Critically low 4.70-6.10 [facility] Comment on above: Performed By: #### C BC ####[facility] Kejgjmpsqg8034 [place] [phone]. Elba Anthony WBC 9.0 103/ul Normal 4.0-11.0 [facility] Comment on above: Performed By: #### C BC ####[facility] Ohghumyhga[address] [place] [address]Dr. Elba Anthony PROF 14(COMP METB)on 022 Albumin [Mass/Vol] 2.3 g/dL Critically low 3.4-5.0 [facility] Comment on above: Performed By: #### C MP ####[facility] Tpklbbhdhn3464 [place] [address]Dr. Elba Anthony Albumin/Globulin [Mass ratio] 0.6 {ratio} Normal [facility] Comment on above: Performed By: #### C MP ####[facility] Iyysnesfiq[address] [place], [place] [address]Dr. Elba Anthony ALP [Catalytic activity/Vol] 75 U/L Normal 46-116 [facility] Comment on above: Performed By: #### C MP ####[facility] Bvuoomthgj6[address] [place], [place] [address]Dr. Elba Anthony ALT [Catalytic activity/Vol] 30 U/L Normal 16-63 [facility] Comment on above: Performed By: #### C MP ####[facility] Tcaitufnau[address] [place], [place] [address]Dr. Elba Anthony Anion gap [Moles/Vol] 11.6 mmol/L Normal [facility] Comment on above: Performed By: #### C MP ####[facility] Jvfwpaqfyl[address] [place], [place] [address]Dr. Elba Anthony AST [Catalytic activity/Vol] 26 U/L Normal 15-37 [facility] Comment on above: Performed By: #### C MP ####[facility] Fkgxonxcaq[address] [place], [place] [address]Dr. Elba Anthony Bilirubin [Mass/Vol] 0.9 mg/dL Normal 0.2-1.3 [facility] Comment on above: Performed By: #### C MP ####[facility] Kblzyigypm[address] [place], [place] [address]Dr. Elba Anthony Calcium [Mass/Vol] 8.1 mg/dL Critically low 8.5-10.1 [facility] Comment on above: Performed By: #### C MP ####[facility] Fvmbstnkbl9438 [place] [phone]. Elba Anthony Chloride [Moles/Vol] 101 mmol/L Normal 98-107 [facility] Comment on above: Performed By: #### C MP ####[facility] Jsbliyrmrl3788 [place] [address]Dr. Elba Anthony CO2 [Moles/Vol] 26.2 mmol/L Normal 22.0-30.0 [facility] Comment on above: Performed By: #### C MP ####[facility] Kzekpempqf3415 [place] [address]Dr. Elba Anthony Creatinine [Mass/Vol] 2.26 mg/dL Critically high 0.66-1.25 [facility] Comment on above: Performed By: #### C MP ####[facility] Lejcntcsfx[address] [place], [place] [address]Dr. Elba Raj EGFR-AF ERITREAN 35 mL/min/1.73m2 Critically low >=60 [facility] Comment on above: Performed By: #### C MP ####[facility] Hftbqxsofq[address] [place], [place] [address]Dr. Elba Raj EGFR-NON AF ERITREAN 29 mL/min/1.73m2 Critically low >=60 [facility] Comment on above: Performed By: #### C MP ####[facility] Rkpcwwlamz[address] [place], [place] [address]Dr. Elba Raj Globulin (S) [Mass/Vol] 4.1 g/dL Normal [facility] Comment on above: Performed By: #### C MP ####[facility] Bhbbryytka5149 [place] [address]Dr. Elba Raj Glucose [Mass/Vol] 110 mg/dL Critically high 74-106 [facility] Comment on above: Performed By: #### C MP ####[facility] Oainuwedbf9[address] [place], [place] [address]Dr. Elba Raj Potassium [Moles/Vol] 3.8 mmol/L Normal 3.4-5.0 [facility] Comment on above: Performed By: #### C MP ####[facility] Smmvdbfupl0036 [place] [phone]. Elba Anthony Protein [Mass/Vol] 6.4 g/dL Normal 6.1-8.2 [facility] Comment on above: Performed By: #### C MP ####[facility] Lblveqsxvl4525 [place] [id number]. Elba Anthony Sodium [Moles/Vol] 135 mmol/L Critically low 137-145 [facility] Comment on above: Performed By: #### C MP ####[facility] [address]emvjbvakq[address] [place], [place] [address]Dr. Elba Anthony Urea nitrogen [Mass/Vol] 49.0 mg/dL Critically high 7.0-18.0 [facility] Comment on above: Performed By: #### C MP ####[facility] Ocshxeewzb[address] [place], [place] [address]Dr. Elba Anthony Urea nitrogen/Creatinine [Mass ratio] 21.7 mg/mg Normal [facility] Comment on above: Performed By: #### C MP ####[facility] Qmaayfgqef165[address] [place], [place] [address]Dr. Elba Anthony BLOOD CULTURE ID/SENSon 04 Aerobe ID + Suscept Final report Abnormal [facility] Comment on above: Performed By: #### C XPOSBL ####[facility] Kvvejjqhuh[address] [place], [place] [address]Dr. Elba Anthony Antimicrobial Susceptibility Comment Normal [facility] Comment on above: Result Comment: S = Susceptible; I = Intermediate; R = Resistant P = Positive; N = Negative MICS are expressed in micrograms per mL Antibiotic RSLT#1 RSLT#2 RSLT#3 RSLT#4Amikacin SCefepime SCeftazidime SCiprofloxacin SGentamicin SImipenem SLevofloxacin SMeropenem SPiperacillin STicarcillin STobramycin S Performed By: #### C XPOSBL ####[facility] Uwfxxizqwi[address] [place], [place] [address]Dr. Elba Anthony Result 1 Comment Abnormal [facility] Comment on above: Result Comment: Pseu domonas aeruginosaReceived aerobic bottle only. Performed By: #### C XPOSBL ####[facility] Ndkecqddzy6630 [place] [address]Dr. Elba Anthony Result Comment: Pseu domonas aeruginosaReceived anaerobic bottle only. CBC AUTO DIFFon 12-16-2021 BASO # 0.0 103/ul Normal 0.0-0.1 [facility] Comment on above: Performed By: #### C BC ####[facility] Daphbjusoo[address] [place], [place] [address]Dr. Nereydasiobhan Anthony Basophils/100 WBC (Bld) 0.3 % Normal 0.2-2.0 [facility] Comment on above: Performed By: #### C BC ####[facility] Smkwgiggiv255[address] [place], [place] [address]Dr. Nereydasiobhan Anthony EO # 0.1 103/ul Normal 0.0-0.7 [facility] Comment on above: Performed By: #### C BC ####[facility] Xzwdebcgod[address] [place], [place] [address]Dr. Nereydasiobhan Anthony Eosinophils/100 WBC (Bld) 1.7 % Normal 0.9-7.0 [facility] Comment on above: Performed By: #### C BC ####[facility] Cwvstnphxf[address] [place], [place] [address]Dr. Elba Raj Erythrocyte distribution width (RBC) [Ratio] 18.8 % Critically high 11.0-15.0 [facility] Comment on above: Performed By: #### C BC ####[facility] Laokogyasb[address] [place], [place] [address]Dr. Elba Anthony Hematocrit (Bld) [Volume fraction] 28.8 % Critically low 42.0-54.0 [facility] Comment on above: Performed By: #### C BC ####[facility] Cepxbmwyep[address] [place], [place] [address]Dr. Elba Anthony Hemoglobin (Bld) [Mass/Vol] 8.6 g/dL Critically low 14.0-18.0 [facility] Comment on above: Performed By: #### C BC ####[facility] Glwleqqgpl[address] [place] [address]Dr. Nereydasiobhan Raj IG # 0.05 10e3/ul Critically high 0.00-0.03 [facility] Comment on above: Performed By: #### C BC ####[facility] Zgtxktbiwp3529 [place] [address]Dr. Nereydasiobhan Anthony IG % 0.7 % Critically high 0.0-0.5 [facility] Comment on above: Performed By: #### C BC ####[facility] Sjspcfeqkt[address] [place], [place] [address]Dr. Elba Anthony LYMPH # 0.4 103/ul Critically low 1.2-3.8 [facility] Comment on above: Performed By: #### C BC ####[facility] Aqhwueoczn018[address] [place], [place] [address]Dr. Elba Anthony Lymphocytes/100 WBC (Bld) 5.4 % Critically low 20.5-60.0 [facility] Comment on above: Performed By: #### C BC ####[facility] Pdylcjajhx59[address] [place], [place] [address]Dr. Nereydasiobhan Anthony MANUAL DIFF REQ NO Normal [facility] Comment on above: Performed By: #### C BC ####[facility] Kocxdnerfe[address] [place], [place] [address]DrLatoya Elba Raj MCH (RBC) [Entitic mass] 25.0 pg Critically low 25.9-34.0 [facility] Comment on above: Performed By: #### C BC ####[facility] Jktouaejyk[address] [place], [place] [address]DrLatoya Elba Raj MCHC (RBC) [Mass/Vol] 29.9 g/dL Normal 29.9-35.2 [facility] Comment on above: Performed By: #### C BC ####[facility] Tjbybwirlv[address] [place], [place] [address]DrLatoya Elba Raj MCV (RBC) [Entitic vol] 83.7 fL Normal 80.0-94.0 [facility] Comment on above: Performed By: #### C BC ####[facility] [address]rkjhl[address] [place], [place] [address]Dr. Elba Anthony MONO # 0.7 103/ul Normal 0.3-0.8 [facility] Comment on above: Performed By: #### C BC ####[facility] Dsfeszzkmy0581 [place] [address]Dr. Elba Anthony Monocytes/100 WBC (Bld) 10.2 % Normal 1.7-12.0 [facility] Comment on above: Performed By: #### C BC ####[facility] Dkwelvxglp2293 [place] [address]Dr. Elba Anthony NEUT # 5.9 103/ul Normal 1.4-6.5 [facility] Comment on above: Performed By: #### C BC ####[facility] Vcbiwcewna8745 [place] [address]Dr. Elba Anthony Neutrophils/100 WBC (Bld) 81.7 % Critically high 43.0-75.0 [facility] Comment on above: Performed By: #### C BC ####[facility] Xgpmldvnel[address] [place], [place] [address]Dr. Elba Anthony Platelet mean volume (Bld) [Entitic vol] 10.8 fL Normal 9.5-13.5 [facility] Comment on above: Performed By: #### C BC ####[facility] Zuzgtqysnr[address] [place] [address]Dr. Elba Raj PLT 150 103/ul Normal 150-450 [facility] Comment on above: Performed By: #### C BC ####[facility] Enmwmwywou[address] [place], [place] [address]Dr. Elba Anthony RBC 3.44 106/ul Critically low 4.70-6.10 [facility] Comment on above: Performed By: #### C BC ####[facility] Nqwipctdnl0368 [place] [address]Dr. Elba Raj WBC 7.2 103/ul Normal 4.0-11.0 [facility] Comment on above: Performed By: #### C BC ####[facility] Eiqyzoppdl1512 [place] [address]Dr. Elba Anthony PROF 14(COMP METB)on 022 Albumin [Mass/Vol] 2.3 g/dL Critically low 3.4-5.0 [facility] Comment on above: Performed By: #### C MP ####[facility] Qejmktrifc[address] [place], [place] [address]DrLatoya Anthony Albumin/Globulin [Mass ratio] 0.6 {ratio} Normal [facility] Comment on above: Performed By: #### C MP ####[facility] Tnvjrmqwac[address] [place], [place] [address]Dr. Elba Anthony ALP [Catalytic activity/Vol] 77 U/L Normal 46-116 [facility] Comment on above: Performed By: #### C MP ####[facility] Qtmlcttrou[address] [place], [place] [address]DrLatoya Anthony ALT [Catalytic activity/Vol] 26 U/L Normal 16-63 [facility] Comment on above: Performed By: #### C MP ####[facility] Hxnrxbvjsh[address] [place], [place] [address]DrLatoya Anthony Anion gap [Moles/Vol] 12.3 mmol/L Normal [facility] Comment on above: Performed By: #### C MP ####[facility] Ysxteqerxy864703 [address] [address] [place], [place] [address]Dr. Elba Anthony AST [Catalytic activity/Vol] 23 U/L Normal 15-37 [facility] Comment on above: Performed By: #### C MP ####[facility] Jeqtkhlihb[address] [place], [place] [address]DrLatoya Anthony Bilirubin [Mass/Vol] 0.8 mg/dL Normal 0.2-1.3 [facility] Comment on above: Performed By: #### C MP ####[facility] Astdfpvbmk[address] [place], [place] [address]DrLatoya Anthony Calcium [Mass/Vol] 8.0 mg/dL Critically low 8.5-10.1 [facility] Comment on above: Performed By: #### C MP ####[facility] Loqidokgqu[address] [place], [place] [address]DrLatoya Anthony Chloride [Moles/Vol] 101 mmol/L Normal 98-107 [facility] Comment on above: Performed By: #### C MP ####[facility] Nfcihaxnbr[address] [place], [place] [address]Dr. Elba Anthony CO2 [Moles/Vol] 25.8 mmol/L Normal 22.0-30.0 [facility] Comment on above: Performed By: #### C MP ####[facility] Ctvxukxmzg288[address] [place], [place] [address]Dr. Elba Anthony Creatinine [Mass/Vol] 2.72 mg/dL Critically high 0.66-1.25 [facility] Comment on above: Performed By: #### C MP ####[facility] Bilfufbbmm978[address] [place], [place] [address]Dr. Elba Anthony EGFR-AF ERITREAN 28 mL/min/1.73m2 Critically low >=60 [facility] Comment on above: Performed By: #### C MP ####[facility] Npuyzgitcy9[address] [place], [place] [address]Dr. Elba Anthony EGFR-NON AF ERITREAN 23 mL/min/1.73m2 Critically low >=60 [facility] Comment on above: Performed By: #### C MP ####[facility] Asunzpiuug[address] [place], [place] [address]Dr. Elba Anthony Globulin (S) [Mass/Vol] 4.1 g/dL Normal [facility] Comment on above: Performed By: #### C MP ####[facility] Yudzeeapnw[address] [place], [place] [address]Dr. Elba Anthony Glucose [Mass/Vol] 130 mg/dL Critically high 74-106 [facility] Comment on above: Performed By: #### C MP ####[facility] Gmdsfthava[address] [place], [place] [address]Dr. Elba Anthony Potassium [Moles/Vol] 4.1 mmol/L Normal 3.4-5.0 [facility] Comment on above: Performed By: #### C MP ####[facility] Zqoemvzfic[address] [place], [place] [address]Dr. Elba Anthony Protein [Mass/Vol] 6.4 g/dL Normal 6.1-8.2 [facility] Comment on above: Performed By: #### C MP ####[facility] Pfqmnelpwm[address] [place], [place] [address]Dr. Elba Anthony Sodium [Moles/Vol] 135 mmol/L Critically low 137-145 [facility] Comment on above: Performed By: #### C MP ####[facility] Tdpeaiwroa[address] [place], [place] [address]Dr. Elba Raj Urea nitrogen [Mass/Vol] 60.0 mg/dL Critically high 7.0-18.0 [facility] Comment on above: Performed By: #### C MP ####[facility] Wqzaqhldmk[address] [place], [place] [address]Dr. Nereydasiobhan Anthony Urea nitrogen/Creatinine [Mass ratio] 22.1 mg/mg Normal [facility] Comment on above: Performed By: #### C MP ####[facility] Oyktrljvow[address] [place], [place] [address]Dr. Elba Raj BNPon 12-15-2021 Natriuretic peptide B (Bld) [Mass/Vol] 61910.0 pg/mL Critically high <=900.0 [facility] Comment on above: Result Comment: Test Repeated. Critical Value Verified Performed By: #### C MP, BNP, CRP ####[facility] Cpiedaruhm[address] [place], [place] [address]Dr. Elba Raj CBC AUTO DIFFon 12-15-2021 BASO # 0.0 103/ul Normal 0.0-0.1 [facility] Comment on above: Performed By: #### C BC ####[facility] Tzsmoksisb[address] [place], [place] [address]Dr. Elba Raj Basophils/100 WBC (Bld) 0.2 % Normal 0.2-2.0 [facility] Comment on above: Performed By: #### C BC ####[facility] Ndocsmazhn358[address] [place], [place] [address]Dr. Elba Anthony EO # 0.1 103/ul Normal 0.0-0.7 [facility] Comment on above: Performed By: #### C BC ####[facility] [address]pcqr[address] [place] [address]Dr. Elba Anthony Eosinophils/100 WBC (Bld) 1.3 % Normal 0.9-7.0 [facility] Comment on above: Performed By: #### C BC ####[facility] Lmgnlutaos[address] [place] [address]Dr. Elab Anthony Erythrocyte distribution width (RBC) [Ratio] 19.0 % Critically high 11.0-15.0 [facility] Comment on above: Performed By: #### C BC ####[facility] Matwnqivsa[address] [place] [address]Dr. Elba Anthony Hematocrit (Bld) [Volume fraction] 28.7 % Critically low 42.0-54.0 [facility] Comment on above: Performed By: #### C BC ####[facility] Wphbnywtro[address] [place], [place] [address]Dr. Elba Anthony Hemoglobin (Bld) [Mass/Vol] 8.7 g/dL Critically low 14.0-18.0 [facility] Comment on above: Performed By: #### C BC ####[facility] Hatwzxvuzs[address] [place], [place] [address]Dr. Elba Anthony IG # 0.04 10e3/ul Critically high 0.00-0.03 [facility] Comment on above: Performed By: #### C BC ####[facility] Txbhfabqcw806[address] [place], [place] [address]Dr. Elba Anthony IG % 0.5 % Normal 0.0-0.5 [facility] Comment on above: Performed By: #### C BC ####[facility] Vyuhrfphbm[address] [place], [place] [address]Dr. Elba Anthony LYMPH # 0.4 103/ul Critically low 1.2-3.8 [facility] Comment on above: Performed By: #### C BC ####[facility] Lypxidfbwf963[address] [place], [place] [address]Dr. Elba Anthony Lymphocytes/100 WBC (Bld) 4.2 % Critically low 20.5-60.0 [facility] Comment on above: Performed By: #### C BC ####[facility] [address]evq[address] [place] [address]DrLatoya Anthony MANUAL DIFF REQ NO Normal [facility] Comment on above: Performed By: #### C BC ####[facility] Garzezbzur[address] [place] [address]Dr. Elba Anthony MCH (RBC) [Entitic mass] 25.5 pg Critically low 25.9-34.0 [facility] Comment on above: Performed By: #### C BC ####[facility] Keocgeerjb[address] [place] [address]Dr. Elba Anthony MCHC (RBC) [Mass/Vol] 30.3 g/dL Normal 29.9-35.2 [facility] Comment on above: Performed By: #### C BC ####[facility] Tcghdovjaw[address] [place], [place] [address]DrLatoya Anthnoy MCV (RBC) [Entitic vol] 84.2 fL Normal 80.0-94.0 [facility] Comment on above: Performed By: #### C BC ####[facility] Kwkipkihzw[address] [place], [place] [address]DraLtoya Anthony MONO # 0.6 103/ul Normal 0.3-0.8 [facility] Comment on above: Performed By: #### C BC ####[facility] Rjcpasgneb[address] [place], [place] [address]DrLatoya Anthony Monocytes/100 WBC (Bld) 7.5 % Normal 1.7-12.0 [facility] Comment on above: Performed By: #### C BC ####[facility] Ekaqaedgpt[address] [place], [place] [address]DrLatoya Anthony NEUT # 7.2 103/ul Critically high 1.4-6.5 [facility] Comment on above: Performed By: #### C BC ####[facility] Pgsjkjvndc9[address] [place], [place] [address]DrLatoya Anthony Neutrophils/100 WBC (Bld) 86.3 % Critically high 43.0-75.0 [facility] Comment on above: Performed By: #### C BC ####[facility] Cmugrxwcwo[address] [place] [address]Dr. Elba Raj Platelet mean volume (Bld) [Entitic vol] 10.7 fL Normal 9.5-13.5 [facility] Comment on above: Performed By: #### C BC ####[facility] Gxtxgyrfmk40[address] [place] [address]Dr. Elba Raj PLT 132 103/ul Critically low 150-450 [facility] Comment on above: Performed By: #### C BC ####[facility] Qafaiipmim[address] [place] [address]Dr. Nereydasiobhan Raj RBC 3.41 106/ul Critically low 4.70-6.10 [facility] Comment on above: Performed By: #### C BC ####[facility] Jrftnyfgya1338 [place] [address]Dr. Elba Anthony WBC 8.4 103/ul Normal 4.0-11.0 [facility] Comment on above: Performed By: #### C BC ####[facility] Kcbeynlcvp84[address] [place] [address]DrLatoya Anthony CRPon 12-15-2021 CRP [Mass/Vol] mg/L Critically high <=1.0 [facility] Comment on above: Performed By: #### C MP, BNP, CRP ####[facility] Ybrykaptfn034[address] [place] [address]DrLatoya Anthony PROF 14(COMP METB)on 022 Albumin [Mass/Vol] 2.4 g/dL Critically low 3.4-5.0 [facility] e [facility] Comment on above: Performed By: #### C MP, BNP, CRP ####[facility] Tpqgfaymdi64[address] [place] [address]Dr. Elba Anthony Albumin/Globulin [Mass ratio] 0.6 {ratio} Normal [facility] Comment on above: Performed By: #### C MP, BNP, CRP ####[facility] Armzszustx[address] [place] [address]Dr. Elba Anthony ALP [Catalytic activity/Vol] 75 U/L Normal 46-116 [facility] Comment on above: Performed By: #### C MP, BNP, CRP ####[facility] Stuzdunjmr[address] [place] [address]Dr. Elba Anthony ALT [Catalytic activity/Vol] 22 U/L Normal 16-63 [facility] Comment on above: Performed By: #### C MP, BNP, CRP ####[facility] Zlrolmhyuy75[address] [place] [address]Dr. Elba Anthony Anion gap [Moles/Vol] 13.8 mmol/L Normal [facility] Comment on above: Performed By: #### C MP, BNP, CRP ####[facility] Ggpwlkhlsx48[address] [place] [address]Dr. Elba Anthony AST [Catalytic activity/Vol] 17 U/L Normal 15-37 [facility] Comment on above: Performed By: #### C MP, BNP, CRP ####[facility] Kvibaydsqq57[address] [place] [address]Dr. Elba Anthony Bilirubin [Mass/Vol] 0.8 mg/dL Normal 0.2-1.3 [facility] Comment on above: Performed By: #### C MP, BNP, CRP ####[facility] Opzhvcjrch[address] [place] [address]Dr. Elba Anthony Calcium [Mass/Vol] 7.7 mg/dL Critically low 8.5-10.1 [facility] Comment on above: Performed By: #### C MP, BNP, CRP ####[facility] Fpukukrrfs[address] [place] [address]Dr. Elba Anthony Chloride [Moles/Vol] 98 mmol/L Normal 98-107 [facility] Comment on above: Performed By: #### C MP, BNP, CRP ####[facility] Azezxrczob3[address] [place] [address]Dr. Elba Anthony CO2 [Moles/Vol] 24.5 mmol/L Normal 22.0-30.0 [facility] Comment on above: Performed By: #### C MP, BNP, CRP ####[facility] Juafbopplb[address] [place], [place] [address]Dr. Elba Anthony Creatinine [Mass/Vol] 3.10 mg/dL Critically high 0.66-1.25 [facility] Comment on above: Performed By: #### C MP, BNP, CRP ####[facility] Ukrmomptvz[address] [place], [place] [address]Dr. Elba Anthony EGFR-AF ERITREAN 24 mL/min/1.73m2 Critically low >=60 [facility] Comment on above: Performed By: #### C MP, BNP, CRP ####[facility] Cmgoawkdop[address] [place], [place] [address]Dr. Elba Anthony EGFR-NON AF ERITREAN 20 mL/min/1.73m2 Critically low >=60 [facility] Comment on above: Performed By: #### C MP, BNP, CRP ####[facility] Dfrpwicvoh[address] [place], [place] [address]Dr. Elba Anthony Globulin (S) [Mass/Vol] 4.1 g/dL Normal [facility] Comment on above: Performed By: #### C MP, BNP, CRP ####[facility] Mhycvfkwoo[address] [place], [place] [address]Dr. Elba Anthony Glucose [Mass/Vol] 141 mg/dL Critically high 74-106 [facility] Comment on above: Performed By: #### C MP, BNP, CRP ####[facility] Vcmlrysrwf254[address] [place], [place] [address]Dr. Elba Anthony Potassium [Moles/Vol] 4.3 mmol/L Normal 3.4-5.0 [facility] Comment on above: Performed By: #### C MP, BNP, CRP ####[facility] Rvmbfifofi[address] [place], [place] [address]Dr. Elba Anthony Protein [Mass/Vol] 6.5 g/dL Normal 6.1-8.2 [facility] Comment on above: Performed By: #### C MP, BNP, CRP ####[facility] Grbvhuuruj[address] [place], [place] [address]Dr. Elba Anthony Sodium [Moles/Vol] 132 mmol/L Critically low 137-145 Th e [facility] Comment on above: Performed By: #### C MP, BNP, CRP ####[facility] Wzdhzanezy[address] [place], [place] [address]Dr. Elba Anthony Urea nitrogen [Mass/Vol] 62.0 mg/dL Critically high 7.0-18.0 [facility] Comment on above: Performed By: #### C MP, BNP, CRP ####[facility] Qbztawraxn[address] [place], [place] [address]Dr. Elba Anthony Urea nitrogen/Creatinine [Mass ratio] 20.0 mg/mg Normal [facility] Comment on above: Performed By: #### C MP, BNP, CRP ####[facility] Iweibjbuts754[address] [place], [place] [address]Dr. Elba Anthony UA RANDOM W/MICROSCOPICon BACTERIA TRACE Abnormal NONE SEEN [facility] Comment on above: Performed By: #### U AMIC ####[facility] Ljjmrzrcvd[address] [place], [place] [address]Dr. Elba Anthony Bilirubin Ql (U) Negative Normal NEGATIVE [facility] Comment on above: Performed By: #### U AMIC ####[facility] Jgpxtmsznb143[address] [place], [place] [address]Dr. Elba Anthony CAST NONE SEEN Normal NONE SEEN [facility] Comment on above: Performed By: #### U AMIC ####[facility] Fpuohoisaj[address] [place], [place] [address]Dr. Elba Anthony Clarity (U) CLEAR Normal CLEAR [facility] Comment on above: Performed By: #### U AMIC ####[facility] Bedibkoqid064[address] [place], [place] [address]Dr. Elba Anthony Color (U) LT. YELLOW Normal YELLOW [facility] Comment on above: Performed By: #### U AMIC ####[facility] Lfzgzrallj[address] [place], [place] [address]Dr. Elba Anthony Crystals LM Nom (Urine sed) SEEN Abnormal NONE SEEN [facility] Comment on above: Performed By: #### U AMIC ####[facility] Yyuakhkxly[address] [place] [id number]. Elba Anthony Epithelial cells LM Ql (Urine sed) RARE Normal NONE SEEN /RARE [facility] Comment on above: Performed By: #### U AMIC ####[facility] Yukregtkiz5254 [place] [address]Dr. Elba Anthony Glucose Ql (U) Negative Normal NEGATIVE [facility] Comment on above: Performed By: #### U AMIC ####[facility] Kwiakbbxds1255 [place] [address]Dr. Elba Anthony Hemoglobin Ql (U) MODERATE Abnormal NEGATIVE [facility] Comment on above: Performed By: #### U AMIC ####[facility] Omddlqodib[address] [place], [place] [address]Dr. Elba Anthony Ketones Ql (U) Negative Normal NEGATIVE [facility] Comment on above: Performed By: #### U AMIC ####[facility] Pjvlgzjvvj[address] [place], [place] [address]Dr. Elba Anthony LEUKOCYTES Negative Normal NEGATIVE [facility] Comment on above: Performed By: #### U AMIC ####[facility] Jrqsmxqqrv457[address] [place], [place] [address]Dr. Elba Anthony MUCOUS NONE SEEN Normal NONE SEEN [facility] Comment on above: Performed By: #### U AMIC ####[facility] Fpritdhlhh110[address] [place] [address]Dr. Elba Anthony Nitrite Ql (U) Negative Normal NEGATIVE [facility] Comment on above: Performed By: #### U AMIC ####[facility] Lvkyqxxuru1081 [place] [id number]. Elba Anthony pH (U) 5.5 [pH] Normal 5-9 [facility] Comment on above: Performed By: #### U AMIC ####[facility] Cojmshgxix[address] [place], [place] [address]Dr. Elba Anthony RBC 50-75 Abnormal 0-2 [facility] Comment on above: Performed By: #### U AMIC ####[facility] Jebhjsfkwt[address] [place], [place] [address]Dr. Elba Anthony SPEC GRAVITY 1.015 Normal 1.005-<=1.02 5 [facility] Comment on above: Performed By: #### U AMIC ####[facility] Fcywdkqyvl54[address] [place] [address]Dr. Nereydasiobhan Anthony UA PROTEIN Negative Normal NEGATIVE/ TRACE [facility] Comment on above: Performed By: #### U AMIC ####[facility] Ppkemgvhwi29[address] [place] [address]Dr. Elba Anthony URIC ACID CRYSTALS FEW Normal [facility] Comment on above: Performed By: #### U AMIC ####[facility] Tszttqalmx4907 [place] [address]Dr. Elba Anthony Urobilinogen Qn (U) 0.2 {Caden'U}/dL Normal 0.2 - 1. 0 [facility] Comment on above: Performed By: #### U AMIC ####[facility] [address]spfpyawwp[address] [place], [place] [address]Dr. Elba Anthony WBC 0-2 Abnormal NONE SEEN [facility] Comment on above: Performed By: #### U AMIC ####[facility] Wlkqngxegn[address] [place], [place] [address]Dr. Elba Raj BNPon 12-14-2021 Natriuretic peptide B (Bld) [Mass/Vol] 11412.0 pg/mL Critically high <=900.0 [facility] Comment on above: Result Comment: test repeated Performed By: #### C RP, CMP, BNP ####[facility] Bjrwxilrdt8[address] [place], [place] [address]Dr. Elba Anthony CBC AUTO DIFFon 12-14-2021 BASO # 0.0 103/ul Normal 0.0-0.1 [facility] Comment on above: Performed By: #### C BC ####[facility] Sjprzqjkhp[address] [place], [place] [address]Dr. Elba Anthony Basophils/100 WBC (Bld) 0.1 % Critically low 0.2-2.0 [facility] Comment on above: Performed By: #### C BC ####[facility] Uuhcwcpysg99[address] [place] [id number]. Elba Anthony EO # 0.1 103/ul Normal 0.0-0.7 [facility] Comment on above: Performed By: #### C BC ####[facility] [address]jvzsktva[address] [place] [address]Dr. Elba Anthony Eosinophils/100 WBC (Bld) 1.1 % Normal 0.9-7.0 [facility] Comment on above: Performed By: #### C BC ####[facility] Tqlctxdqzp[address] [place], [place] [address]Dr. Elba Anthony Erythrocyte distribution width (RBC) [Ratio] 18.7 % Critically high 11.0-15.0 [facility] Comment on above: Performed By: #### C BC ####[facility] Inyrnyppty[address] [place], [place] [address]Dr. Elba Anthony Hematocrit (Bld) [Volume fraction] 28.9 % Critically low 42.0-54.0 [facility] Comment on above: Performed By: #### C BC ####[facility] Vencnxhqbq[address] [place], [place] [address]Dr. Elba Anthony Hemoglobin (Bld) [Mass/Vol] 8.7 g/dL Critically low 14.0-18.0 [facility] Comment on above: Performed By: #### C BC ####[facility] Iblmmtkyag[address] [place], [place] [address]Dr. Elba Anthony IG # 0.04 10e3/ul Critically high 0.00-0.03 [facility] Comment on above: Performed By: #### C BC ####[facility] Mmmscrvgxe8[address] [place], [place] [address]Dr. Elba Anthony IG % 0.4 % Normal 0.0-0.5 [facility] Comment on above: Performed By: #### C BC ####[facility] Dnwdvhbuwf[address] [place], [place] [address]Dr. Elba Anthony LYMPH # 0.4 103/ul Critically low 1.2-3.8 [facility] Comment on above: Performed By: #### C BC ####[facility] Bpkgfcuude5[address] [place] [phone]. Elba Raj Lymphocytes/100 WBC (Bld) 4.1 % Critically low 20.5-60.0 [facility] Comment on above: Result Comment: dif. not rqd. same as 12/12/21 Performed By: #### C BC ####[facility] Httwdejuoa[address] [place] [address]Dr. Elba Anthony MANUAL DIFF REQ NO Normal [facility] Comment on above: Performed By: #### C BC ####[facility] Oazgzvbqab1193 [place] [phone]. Nereydasiobhan Anthony MCH (RBC) [Entitic mass] 25.3 pg Critically low 25.9-34.0 [facility] Comment on above: Performed By: #### C BC ####[facility] Kymtgroaue[address] [place] [address]Dr. Elba Anthony MCHC (RBC) [Mass/Vol] 30.1 g/dL Normal 29.9-35.2 [facility] Comment on above: Performed By: #### C BC ####[facility] Jgofllowno39[address] [place] [address]Dr. Nereydasiobhan Anthony MCV (RBC) [Entitic vol] 84.0 fL Normal 80.0-94.0 [facility] Comment on above: Performed By: #### C BC ####[facility] Yfaboalewq[address] [place], [place] [address]Dr. Elba Anthony MONO # 0.9 103/ul Critically high 0.3-0.8 [facility] Comment on above: Performed By: #### C BC ####[facility] Jrcoefslxn4124 [place] [address]Dr. Nereydasiobhan Anthony Monocytes/100 WBC (Bld) 9.3 % Normal 1.7-12.0 [facility] Comment on above: Performed By: #### C BC ####[facility] [address]zwwitzhbv[address] [place], [place] [address]DraLtoya Anthony NEUT # 7.8 103/ul Critically high 1.4-6.5 [facility] Comment on above: Performed By: #### C BC ####[facility] Kohgxbuwsf67[address] [place] [phone]. Nereydasiobhan Raj Neutrophils/100 WBC (Bld) 85.0 % Critically high 43.0-75.0 [facility] Comment on above: Performed By: #### C BC ####[facility] Jciikplxvv3765 [place] [phone]. Elba Anthony Platelet mean volume (Bld) [Entitic vol] 11.0 fL Normal 9.5-13.5 [facility] Comment on above: Performed By: #### C BC ####[facility] Bwkclekgdo[address] [place] [address]Dr. Elba Anthony PLT 117 103/ul Critically low 150-450 [facility] Comment on above: Performed By: #### C BC ####[facility] [facility] [address] [place] [address]Dr. Elba Anthony RBC 3.44 106/ul Critically low 4.70-6.10 [facility] Comment on above: Performed By: #### C BC ####[facility] G[address]ep[address]urir[address] [place] [id number]. Elba Anthony WBC 9.2 103/ul Normal 4.0-11.0 [facility] Comment on above: Performed By: #### C BC ####[facility] Whoh[address]te[address] [place] [address]DrLatoya Anthony CRPon 12-14-2021 CRP [Mass/Vol] mg/L Critically high <=1.0 [facility] Comment on above: Performed By: #### C RP, CMP, BNP ####[facility] [address] [place] [phone] Anthony PROF 14(COMP METB)on 022 Albumin [Mass/Vol] 2.5 g/dL Critically low 3.4-5.0 [facility] Comment on above: Performed By: #### C RP, CMP, BNP ####[facility] Pkxwjvsyig[address] [place] [address]DrLatoya Anthony Albumin/Globulin [Mass ratio] 0.6 {ratio} Normal [facility] Comment on above: Performed By: #### C RP, CMP, BNP ####[facility] [address] [place] [address]Dr. Elba Anthony ALP [Catalytic activity/Vol] 76 U/L Normal 46-116 [facility] Comment on above: Performed By: #### C RP, CMP, BNP ####[facility] Xhstriajkp[address] [place] [address]Dr. Elba Raj ALT [Catalytic activity/Vol] 17 U/L Normal 16-63 [facility] Comment on above: Performed By: #### C RP, CMP, BNP ####[facility] [address]utdp[address] [place] [address]Dr. Nereydasiobhan Raj Anion gap [Moles/Vol] 13.3 mmol/L Normal [facility] Comment on above: Performed By: #### C RP, CMP, BNP ####[facility] Z[address]ijud[address] [place], [place] [address]Dr. Elba Raj AST [Catalytic activity/Vol] 22 U/L Normal 15-37 [facility] Comment on above: Performed By: #### C RP, CMP, BNP ####[facility] Wviegpksxe[address] [place] [address]Dr. Elba Anthony Bilirubin [Mass/Vol] 1.0 mg/dL Normal 0.2-1.3 [facility] Comment on above: Performed By: #### C RP, CMP, BNP ####[facility] Tcsacquxvi[address] [place] [address]Dr. Elba Anthony Calcium [Mass/Vol] 8.1 mg/dL Critically low 8.5-10.1 [facility] Comment on above: Performed By: #### C RP, CMP, BNP ####[facility] Xwmjssygpe[address] [place] [address]Dr. Elba Anthony Chloride [Moles/Vol] 97 mmol/L Critically low 98-107 [facility] Comment on above: Performed By: #### C RP, CMP, BNP ####[facility] Dyullrgpyl[address] [place] [address]Dr. Elba Anthony CO2 [Moles/Vol] 25.0 mmol/L Normal 22.0-30.0 [facility] Comment on above: Performed By: #### C RP, CMP, BNP ####[facility] Imxzaavduv[address] [place] [address]Dr. Elba Anthony Creatinine [Mass/Vol] 2.85 mg/dL Critically high 0.66-1.25 [facility] Comment on above: Performed By: #### C RP, CMP, BNP ####[facility] Gvkxnjcddi[address] [place] [address]Dr. lEba Anthony EGFR-AF ERITREAN 27 mL/min/1.73m2 Critically low >=60 [facility] Comment on above: Performed By: #### C RP, CMP, BNP ####[facility] Daxtaqggoj[address] [place] [address]Dr. Elba Anthony EGFR-NON AF ERITREAN 22 mL/min/1.73m2 Critically low >=60 [facility] Comment on above: Performed By: #### C RP, CMP, BNP ####[facility] Fkfnmoatai[address] [place] [address]Dr. Elba Anthony Globulin (S) [Mass/Vol] 3.9 g/dL Normal [facility] Comment on above: Performed By: #### C RP, CMP, BNP ####[facility] [address]ks[address]sdq[address] [place] [address]Dr. Elba Anthony Glucose [Mass/Vol] 123 mg/dL Critically high 74-106 [facility] Comment on above: Performed By: #### C RP, CMP, BNP ####[facility] Blcickxrrb[address] [place] [address]Dr. Elba Anthony Potassium [Moles/Vol] 4.3 mmol/L Normal 3.4-5.0 [facility] Comment on above: Performed By: #### C RP, CMP, BNP ####[facility] Zukpwjcdea[address] [place] [address]Dr. Elba Anthony Protein [Mass/Vol] 6.4 g/dL Normal 6.1-8.2 [facility] Comment on above: Performed By: #### C RP, CMP, BNP ####[facility] Tuppwguncw[address] [place] [address]Dr. Elba Anthony Sodium [Moles/Vol] 131 mmol/L Critically low 137-145 Th e [facility] Comment on above: Performed By: #### C RP, CMP, BNP ####[facility] Hedkpdvkwm[address] [place], [place] [address]Dr. Elba Anthony Urea nitrogen [Mass/Vol] 57.0 mg/dL Critically high 7.0-18.0 [facility] Comment on above: Performed By: #### C RP, CMP, BNP ####[facility] Tckyarhcat[address] [place], [place] [address]Dr. Elba Anthony Urea nitrogen/Creatinine [Mass ratio] 20.0 mg/mg Normal [facility] Comment on above: Performed By: #### C RP, CMP, BNP ####[facility] Metcererpv[address] [place], [place] [address]Dr. Elba Anthony XR CHEST 1 Von 12-14-2021 XR CHEST 1 V Normal [facility] XR CHEST 1 V Normal [facility] BNPon 12-13-2021 Natriuretic peptide B (Bld) [Mass/Vol] 27414.0 pg/mL Critically high <=900.0 [facility] Comment on above: Performed By: #### B CLEARING SUPERVISOR ####[facility] Vtcpwvgiih[address] [place], [place] [address]Dr. Elba Anthony CBC AUTO DIFFon 12-13-2021 BASO # 0.0 103/ul Normal 0.0-0.1 [facility] Comment on above: Performed By: #### C BC ####[facility] Ilysdxgzke[address] [place], [place] [address]Dr. Elba Anthony Basophils/100 WBC (Bld) 0.1 % Critically low 0.2-2.0 [facility] Comment on above: Performed By: #### C BC ####[facility] H[address]mdzqlocq[address] [place], [place] [address]Dr. Elba Anthony EO # 0.0 103/ul Normal 0.0-0.7 [facility] Comment on above: Performed By: #### C BC ####[facility] [address]wbxphrt[address] [place] [address]Dr. Elba Anthony Eosinophils/100 WBC (Bld) 0.2 % Critically low 0.9-7.0 [facility] Comment on above: Performed By: #### C BC ####[facility] Sjjyblhedq[address] [place], [place] [address]Dr. Elba Anthony Erythrocyte distribution width (RBC) [Ratio] 19.0 % Critically high 11.0-15.0 [facility] Comment on above: Performed By: #### C BC ####[facility] Gkhljkulal[address] [place], [place] [address]Dr. Elba Anthony Hematocrit (Bld) [Volume fraction] 31.8 % Critically low 42.0-54.0 [facility] Comment on above: Performed By: #### C BC ####[facility] Ezilapexeo[address] [place], [place] [address]Dr. Elba Anthony Hemoglobin (Bld) [Mass/Vol] 9.5 g/dL Critically low 14.0-18.0 [facility] Comment on above: Performed By: #### C BC ####[facility] S[address]zaxstz[address] [place], [place] [address]Dr. Elba Raj IG # 0.05 10e3/ul Critically high 0.00-0.03 [facility] Comment on above: Performed By: #### C BC ####[facility] Etvoyyvmsp[address] [place], [place] [address]Dr. Nereydasiobhan Anthony IG % 0.4 % Normal 0.0-0.5 [facility] Comment on above: Performed By: #### C BC ####[facility] C[address]jvwhhx[address] [place], [place] [address]Dr. Elba Anthony LYMPH # 0.3 103/ul Critically low 1.2-3.8 [facility] Comment on above: Performed By: #### C BC ####[facility] Enuxnqcjcc[address] [place], [place] [address]Dr. Nereydasiobhan Anthony Lymphocytes/100 WBC (Bld) 2.3 % Critically low 20.5-60.0 [facility] Comment on above: Result Comment: dif. not rqd. same as 12/12/21 Performed By: #### C BC ####[facility] [address]ltu[address] [place] [phone]. Elba Raj MANUAL DIFF REQ NO Normal [facility] Comment on above: Performed By: #### C BC ####[facility] S[address]byjfeco[address] [place] [address]Dr. Elba Raj MCH (RBC) [Entitic mass] 25.3 pg Critically low 25.9-34.0 [facility] Comment on above: Performed By: #### C BC ####[facility] Owmsatsysc[address] [place] [address]Dr. Elba Raj MCHC (RBC) [Mass/Vol] 29.9 g/dL Normal 29.9-35.2 [facility] Comment on above: Performed By: #### C BC ####[facility] Ifyuousmnf[address] [place] [address]Dr. Nereydasiobhan Anthony MCV (RBC) [Entitic vol] 84.8 fL Normal 80.0-94.0 [facility] Comment on above: Performed By: #### C BC ####[facility] W[address]ftywynt[address] [place], [place] [address]Dr. Elba Anthony MONO # 0.8 103/ul Normal 0.3-0.8 [facility] Comment on above: Performed By: #### C BC ####[facility] Bq[address]zknlbt[address] [place] [address]Dr. Nereydasiobhan Anthony Monocytes/100 WBC (Bld) 6.7 % Normal 1.7-12.0 [facility] Comment on above: Performed By: #### C BC ####[facility] Bcyhvbtzfz[address] [place] [address]Dr. Elba Anthony NEUT # 11.0 103/ul Critically high 1.4-6.5 [facility] Comment on above: Performed By: #### C BC ####[facility] Vxx[address]rgadn[address] [place] [phone]. Elba Anthony Neutrophils/100 WBC (Bld) 90.3 % Critically high 43.0-75.0 [facility] Comment on above: Performed By: #### C BC ####[facility] [address]vflyavn[address] [place] [phone]. Elba Raj Platelet mean volume (Bld) [Entitic vol] 10.8 fL Normal 9.5-13.5 [facility] Comment on above: Performed By: #### C BC ####[facility] Xvcekikrep2[address] [place] [phone]. Nereydasiobhan Raj PLT 130 103/ul Critically low 150-450 [facility] Comment on above: Performed By: #### C BC ####[facility] Avpjavhhne5394 [place] [phone]. Elba Anthony RBC 3.75 106/ul Critically low 4.70-6.10 [facility] Comment on above: Performed By: #### C BC ####[facility] Gqmsr[address]oyt[address] [place] [phone]. Elba Anthony WBC 12.2 103/ul Critically high 4.0-11.0 [facility] Comment on above: Performed By: #### C BC ####[facility] Yaafwzxoht[address] [place] [phone]. Elba Anthony CRPon 12-13-2021 CRP [Mass/Vol] mg/L Critically high <=1.0 [facility] Comment on above: Performed By: #### C MP, CRP ####[facility] Mqceeknisv[address] [place] [phone]. Elba Anthony ECHO LIMITED STUDYon ECHO LIMITED STUDY Normal [facility] PROF 14(COMP METB)on Albumin [Mass/Vol] 2.9 g/dL Critically low 3.4-5.0 Th e [facility] Comment on above: Performed By: #### C MP, CRP ####[facility] Exztutqxao[address] [place] [address]Dr. Elba Anthony Albumin/Globulin [Mass ratio] 0.7 {ratio} Normal [facility] Comment on above: Performed By: #### C MP, CRP ####[facility] Pkvgojprnl[address] [place] [address]Dr. Elba Anthony ALP [Catalytic activity/Vol] 88 U/L Normal 46-116 [facility] Comment on above: Performed By: #### C MP, CRP ####[facility] Mvgxkoqgco[address] [place] [address]Dr. Elba Anthony ALT [Catalytic activity/Vol] 15 U/L Critically low 16-63 [facility] Comment on above: Performed By: #### C MP, CRP ####[facility] G[address]vdfxvfqc[address] [place], [place] [address]Dr. Elba Anthony Anion gap [Moles/Vol] 15.1 mmol/L Normal [facility] Comment on above: Performed By: #### C MP, CRP ####[facility] Sowpvfrxwg[address] [place], [place] [address]Dr. Elba Anthony AST [Catalytic activity/Vol] 14 U/L Critically low 15-37 [facility] Comment on above: Performed By: #### C MP, CRP ####[facility] Dwjzvwjbhd[address] [place], [place] [address]Dr. Elba Anthony Bilirubin [Mass/Vol] 1.5 mg/dL Critically high 0.2-1.3 [facility] Comment on above: Performed By: #### C MP, CRP ####[facility] Lwydwnxgrw[address] [place], [place] [address]Dr. Elba Anthony Calcium [Mass/Vol] 8.6 mg/dL Normal 8.5-10.1 [facility] Comment on above: Performed By: #### C MP, CRP ####[facility] Twhicgfjux[address] [place], [place] [address]Dr. Elba Anthony Chloride [Moles/Vol] 99 mmol/L Normal 98-107 [facility] Comment on above: Performed By: #### C MP, CRP ####[facility] Dvdnhhchuh[address] [place], [place] [address]Dr. Elba Anthony CO2 [Moles/Vol] 24.3 mmol/L Normal 22.0-30.0 [facility] Comment on above: Performed By: #### C MP, CRP ####[facility] Dbjmvmtotx26[address] [place] [address]Dr. Elba Anthony Creatinine [Mass/Vol] 2.52 mg/dL Critically high 0.66-1.25 [facility] Comment on above: Performed By: #### C MP, CRP ####[facility] Awqbrmpibs[address] [place], [place] [address]Dr. Elba Anthony EGFR-AF ERITREAN 31 mL/min/1.73m2 Critically low >=60 [facility] Comment on above: Performed By: #### C MP, CRP ####[facility] Ezsutlpvpw[address] [place], [place] [address]Dr. Elba Anthony EGFR-NON AF ERITREAN 25 mL/min/1.73m2 Critically low >=60 [facility] Comment on above: Performed By: #### C MP, CRP ####[facility] Deqzsvfola[address] [place], [place] [address]Dr. Elba Anthony Globulin (S) [Mass/Vol] 3.9 g/dL Normal [facility] Comment on above: Performed By: #### C MP, CRP ####[facility] Vxkixspbop8[address] [place] [address]Dr. Elba Anthony Glucose [Mass/Vol] 133 mg/dL Critically high 74-106 T [facility] Comment on above: Performed By: #### C MP, CRP ####[facility] Uylskxjaga[address] [place] [address]Dr. Elba Anthony Potassium [Moles/Vol] 4.4 mmol/L Normal 3.4-5.0 [facility] Comment on above: Performed By: #### C MP, CRP ####[facility] Dtbqhveyon[address] [place], [place] [address]Dr. Elba Anthony Protein [Mass/Vol] 6.8 g/dL Normal 6.1-8.2 [facility] Comment on above: Performed By: #### C MP, CRP ####[facility] Gfdkjvqgqq4453 [place] [phone]. Elba Anthony Sodium [Moles/Vol] 134 mmol/L Critically low 137-145 [facility] Comment on above: Performed By: #### C MP, CRP ####[facility] Ovudocmoke[address] [place] [phone]. Elba Anthony Urea nitrogen [Mass/Vol] 47.0 mg/dL Critically high 7.0-18.0 [facility] Comment on above: Performed By: #### C MP, CRP ####[facility] Ylwndzeupj4737 [place] [phone]. Elba Anthony Urea nitrogen/Creatinine [Mass ratio] 18.7 mg/mg Normal [facility] Comment on above: Performed By: #### C MP, CRP ####[facility] Gyjsedwxhb[address] [place] [address]Dr. Elba Anthony T3, TOTAL (TRIIODOTHYRONINE) on 12-13-2021 T3, TOTAL 66 ng/dL Critically low 71-180 [facility] Comment on above: Performed By: #### T 3TOTAL ####[facility] Qmyospgvxx[address] [place] [address]Dr. Elba Anthony US KIDNEYS BLADDERon 022 US KIDNEYS BLADDER Normal [facility] BLOOD CULTURE ID PANELon A. baumannii Not detected Normal [facility] Comment on above: Performed By: #### B PABLO ####[facility] Oilslqmmlj[address] [place] [address]Dr. Elba Anthony BCID CONTROLS PASSED Normal [facility] Comment on above: Performed By: #### B PABLO ####[facility] Wbuikydqvs8[address] [place] [address]Dr. Elba Anthony BCIDBTHD BLOOD CULTURE BOTTLE INFORMATION Normal [facility] Comment on above: Performed By: #### B PABLO ####[facility] Rxwclgljpf8249 [place] [phone]. Elba Anthony BCIDHD1 ANTIMICROBIAL RESIST ANCE GENES Normal [facility] Comment on above: Performed By: #### B PABLO ####[facility] Fabprqdvjr5[address] [place] [phone]. Yisiobhan Anthony BCIDHD2 SEE BELOW Normal [facility] Comment on above: Result Comment: KPC- carbapenem resistance gene, mecA- methecillin resistance gene, van A/B- vancomycin resistance gene Note: Antimicrobial resitance can occur via multiple mechanisms. A Not Detected result for the [employer] antomicrobial resistance gene assays does not indicate antimicrobial susceptibility. Subculturing is required for specis identificationand susceptibility testing of isolates. Performed By: #### B PABLO ####[facility] Xnbnerwumj[address] [place] [address]Dr. Elba Anthony BCIDHD3 Positive [facility] Comment on above: Performed By: #### B PABLO ####[facility] H[address]fqs[address] [place], [place] [address]Dr. Yisiobhan Anthony BCIDHD4 Negative Normal [facility] Comment on above: Performed By: #### B PABLO ####[facility] Sfwvmocdbw[address] [place], [place] [address]Dr. Yisiobhan Anthony BCIDHD5 YEAST Normal [facility] Comment on above: Performed By: #### B PABLO ####[facility] [address]robcsq[address] [place], [place] [address]Dr. Yisiobhan Anthony BCIDHD6 SEE BELOW [facility] Comment on above: Result Comment: Note : All genus and species BCID [employer] results will be verified post subculturing via Maldi-Tof MS testing methodology. Performed By: #### B PABLO ####[facility] Wmavbikewn[address] [place], [place] [address]Dr. Elba Anthony Bottle Set: Set 1 Normal [facility] Comment on above: Performed By: #### B PABLO ####[facility] Kgkwbzvfit0375 [place] [phone]. Elba Anthony Bottle: Aerobic Normal [facility] Comment on above: Performed By: #### B PABLO ####[facility] Jbeaazxtvm[address] [place] [address]Dr. Yisiobhan Anthony Lorelei albicans Not detected Normal [facility] Comment on above: Performed By: #### B PABLO ####[facility] Tbwxhswvch6641 [place] [phone]. Yilan Anthony Lorelei glabrata Not detected Normal [facility] Comment on above: Performed By: #### B PABLO ####[facility] Lyzjedrkiu[address] [place] [address]Dr. Yilan Anthony Lorelei Krusei Not detected Normal [facility] Comment on above: Performed By: #### B PABLO ####[facility] Grccjdnmzh9[address] [place] [address]Dr. Yilan Anthony Lorelei Parapsilosis Not detected Normal [facility] Comment on above: Performed By: #### B PABLO ####[facility] Qndvnhftjy[address] [place], [place] [address]Dr. Yilan Anthony Lorelei Tropicalis Not detected Normal [facility] Comment on above: Performed By: #### B PABLO ####[facility] Arwcybkdkr[address] [place], [place] [address]Dr. Yisiobhan Anthony E. Cloacae complex Not detected Normal [facility] Comment on above: Performed By: #### B PABLO ####[facility] Ccpoyfhfhk[address] [place], [place] [address]Dr. Yilan Anthony Enterobacteriaceae Not detected Normal [facility] Comment on above: Performed By: #### B PABLO ####[facility] [address]ops[address]hxc[address] [place], [place] [address]Dr. Yilan Anthony Enterococcus Not detected Normal [facility] Comment on above: Performed By: #### B PABLO ####[facility] Aftrubbjag[address] [place], [place] [address]Dr. Yilan Anthony Escheria coli Not detected Normal [facility] Comment on above: Performed By: #### B PABLO ####[facility] [address]hsb[address] [place], [place] [address]Dr. Yilan Anthony K. oxytoca Not detected Normal [facility] Comment on above: Performed By: #### B PABLO ####[facility] C[address]dhptmuk[address] [place], [place] [address]Dr. Yilan Anthony K. pneumoniae Not detected Normal [facility] Comment on above: Performed By: #### B PABLO ####[facility] Sufofvpqev4[address] [place] [address]Dr. Elba Anthony KPC Resistant Gene Not detected Normal [facility] Comment on above: Performed By: #### B PABLO ####[facility] Ajcackbwvc[address] [place] [address]Dr. Elba Anthony List. monocytogenes Not detected Normal [facility] Comment on above: Performed By: #### B PABLO ####[facility] Ueqizlealh[address] [place], [place] [address]Dr. Elba Anthony mecA Resistant Gene Not Applicable Normal [facility] Comment on above: Performed By: #### B PABLO ####[facility] Ttyxorlxqb[address] [place], [place] [address]Dr. Elba Anthony Proteus Not detected Normal [facility] Comment on above: Performed By: #### B PABLO ####[facility] Xwohawmmwz[address] [place], [place] [address]Dr. Elba Anthony Pseud. aeruginosa Detected Critically abnormal [facility] Comment on above: Performed By: #### B PABLO ####[facility] [address]ze[address]ocxp[address] [place], [place] [address]Dr. Elba Anthony Seratia marcescens Not detected Normal [facility] Comment on above: Performed By: #### B PABLO ####[facility] [address]nebbqydbz[address] [place], [place] [address]Dr. Elba Anthony Site: Left hand Normal [facility] Comment on above: Performed By: #### B PABLO ####[facility] [address]fhbstduk[address] [place], [place] [address]Dr. Elba Anthony Staph. aureus Not detected Normal [facility] Comment on above: Performed By: #### B PABLO ####[facility] [address]vbhiwl[address] [place], [place] [address]Dr. Elba Anthony Staphylococcus Not detected Normal [facility] Comment on above: Performed By: #### B PABLO ####[facility] [facility] [address] [place], [place] [address]Dr. Elba Anthony Strep. agalactiae Not detected Normal [facility] Comment on above: Performed By: #### B PABLO ####[facility] [address]blqdt[address] [place] [address]Dr. Elba Anthony Strep. pneumoniae Not detected Normal [facility] Comment on above: Performed By: #### B PABLO ####[facility] M[address] [place], [place] [address]Dr. Elba Anthony Strep. pyogenes Not detected Normal [facility] Comment on above: Performed By: #### B PABLO ####[facility] Foh[address] [place], [place] [address]Dr. Elba Anthony Streptococcus Not detected Normal [facility] Comment on above: Performed By: #### B PABLO ####[facility] Ps[address] [place], [place] [address]Dr. Elba Anthony Soledad/B Resist. Gene Not Applicable Normal [facility] Comment on above: Performed By: #### B PABLO ####[facility] At[address] [place], [place] [address]Dr. Elba Anthony BNPon 12-12-2021 Natriuretic peptide B (Bld) [Mass/Vol] 21136.0 pg/mL Critically high <=900.0 [facility] Comment on above: Result Comment: test repeated critical value verified Performed By: #### B MP, BNP, HSTROPN ####[facility] [address] [place], [place] [address]Dr. Elba Anthony CARDIAC FADY 3-6on 2 CK [Catalytic activity/Vol] 29 U/L Critically low 55-170 [facility] Comment on above: Performed By: #### C MREP ####[facility] [address] [place], [place] [address]Dr. Elba Anthony CK.MB [Mass/Vol] 1.26 ng/mL Normal <=2.37 [facility] Comment on above: Performed By: #### C MREP ####[facility] Op[address] [place], [place] [address]Dr. Elba Anthony HSTROP 27.4 pg/mL Normal 4.0-42.2 [facility] Comment on above: Result Comment: CUT- OFF POINTS HAVE BEEN ESTABLISHED BASED ON THE FOURTH UNIVERSAL DEFINITIONS OF MYOCARDIALINFARCTION. THE UPPER REFERENCE LIMIT (URL) OF TROPONIN, DEFINED THE 99TH PERCENTILE OFcTnI DISTRIBUTION IN A REFERENCE POPULATION, HAS BEEN CONFIRMED THE DECISION THRESHOLDFOR ME DIAGNOSIS. Performed By: #### C KARENP ####[facility] [address] [place] [address]Dr. Elba Anthony CK [Catalytic activity/Vol] 23 U/L Critically low 55-170 [facility] Comment on above: Performed By: #### C KARENP ####[facility] [address]fr[address] [place] [address]Dr. Nereydasiobhan Anthony CK.MB [Mass/Vol] 1.41 ng/mL Normal <=2.37 [facility] Comment on above: Performed By: #### C KARENP ####[facility] [address]qzcpsgoo[address] [place] [address]Dr. Elba Raj HSTROP 27.2 pg/mL Normal 4.0-42.2 [facility] Comment on above: Result Comment: CUT- OFF POINTS HAVE BEEN ESTABLISHED BASED ON THE FOURTH UNIVERSAL DEFINITIONS OF MYOCARDIALINFARCTION. THE UPPER REFERENCE LIMIT (URL) OF TROPONIN, DEFINED THE 99TH PERCENTILE OFcTnI DISTRIBUTION IN A REFERENCE POPULATION, HAS BEEN CONFIRMED THE DECISION THRESHOLDFOR ME DIAGNOSIS. Performed By: #### C KARENP ####[facility] Qmos[address]pc[address] [place] [address]Dr. Elba Anthony CBC W MANUAL DIFFon 12-13-19 22 ATYPICAL LYMPH # Normal [facility] Comment on above: Performed By: #### Abdoul DIANA ####[facility] [address] [place] [address]Dr. Elba Anthony ATYPICAL LYMPH % Normal [facility] Comment on above: Performed By: #### Abdoul DIANA ####[facility] [address]fr[address]yn[address] [place] [address]Dr. Elba Anthony BAND # Normal 0.0-0.3 [facility] Comment on above: Performed By: #### Abdoul DIANA ####[facility] T[address]hrbrtm[address] [place] [address]Dr. Elba Anthony BAND % Normal 0-5 [facility] Comment on above: Performed By: #### C BCMAN ####[facility] Xtbxp[address] [place] [id number]. Elba Anthony BASOM # 0.00 103/ul Normal 0.00-0.10 [facility] Comment on above: Performed By: #### C BCMAN ####[facility] [address]asx[address] [place] [phone]. Elba Anthony BASOM % 0.0 % Critically low 0.2-2.0 [facility] Comment on above: Performed By: #### C BCMAN ####[facility] Xqfommfrxc[address] [place] [address]Dr. Elba Anthony BLAST # Normal [facility] Comment on above: Performed By: #### C BCVINCENT ####[facility] Km[address]zeg[address] [place] [address]Dr. Elba Anthony BLAST % Normal [facility] Comment on above: Performed By: #### C BCVINCENT ####[facility] Dzvchqkjor[address] [place] [address]Dr. Elba Anthony CORRECTED WBC Normal 4.0-11.0 [facility] Comment on above: Performed By: #### C BCVINCENT ####[facility] Ebvfo[address] [place], [place] [address]Dr. Elba Anthony EOS # 0.00 103/ul Normal 0.00-0.70 [facility] Comment on above: Performed By: #### C BCVINCENT ####[facility] Zrslfqnssc[address] [place] [address]Dr. Elba Anthony EOS% 0.0 % Critically low 0.9-7.0 [facility] Comment on above: Performed By: #### C BCVINCENT ####[facility] Augawxhopq[address] [place], [place] [address]Dr. Elba Anthony HCT 34.1 % Critically low 42.0-54.0 [facility] Comment on above: Performed By: #### C BCVINCENT ####[facility] I[address]sl[address]ys[address] [place], [place] [address]Dr. Elba Anthony HGB 10.1 g/dl Critically low 14.0-18.0 [facility] Comment on above: Performed By: #### Abdoul DIAAN ####[facility] [address]rt[address]dy[address] [place] [address]Dr. Elba Anthony LYMPHM # 0.32 103/ul Critically low 1.20-3.80 [facility] Comment on above: Performed By: #### Abdoul DIANA ####[facility] Fexsxfhmwr[address] [place] [address]Dr. Elba Anthony LYMPHM% 3.0 % Critically low 20.5-60.0 [facility] Comment on above: Performed By: #### Abdoul DIANA ####[facility] Cycapsqjtg[address] [place] [address]Dr. Elba Anthony MCH 25.5 pg Critically low 25.9-34.0 [facility] Comment on above: Performed By: #### Abdoul DIANA ####[facility] Egreqbmmia[address] [place], [place] [address]Dr. Elba Anthony MCHC 29.6 g/dl Critically low 29.9-35.2 [facility] Comment on above: Performed By: #### Abdoul DIANA ####[facility] [address] [place], [place] [address]Dr. Elba Anthony MCV 86.1 fL Normal 80.0-94.0 [facility] Comment on above: Performed By: #### Abdoul DIANA ####[facility] [address] [place] [address]Dr. Elba Anthony METAMYELOCYTE # Normal [facility] Comment on above: Performed By: #### Abdoul DIANA ####[facility] [address]zv[address]twv[address] [place] [phone]. Elba Anthony METAMYELOCYTE % Normal [facility] Comment on above: Performed By: #### Abdoul DIANA ####[facility] Mdvkqmmzvd[address] [place] [address]Dr. Elba Anthony MONOM# 0.11 103/ul Critically low 0.30-0.80 [facility] Comment on above: Performed By: #### Abdoul DIANA ####[facility] Eirfgiqvoi[address] [place] [phone]. Elba Anthony MONOM% 1.0 % Critically low 1.7-12.0 [facility] Comment on above: Performed By: #### C ADALGISA ####[facility] Wtkrilvwpf[address] [place] [phone]. Elba Anthony MPV 10.4 fL Normal 9.5-13.5 [facility] Comment on above: Performed By: #### C ADALGISA ####[facility] Cbpq[address]ipwaw[address] [place] [phone]. Elba Anthony MYELOCYTE # Normal [facility] Comment on above: Performed By: #### C ADALGISA ####[facility] Frgasxckjh[address] [place] [phone]. Elba Anthony MYELOCYTE % Normal [facility] Comment on above: Performed By: #### C ADALGISA ####[facility] [address] [place], [place] [address]Dr. Elba Anthony NRBC Normal [facility] Comment on above: Performed By: #### C ADALGISA ####[facility] Gltwzdrram[address] [place] [address]Dr. Elba Anthony OVALOCYTES SLIGHT Normal [facility] Comment on above: Performed By: #### C ADALGISA ####[facility] Itomswcupn[address] [place] [phone]. Elba Anthony PLT 154 103/ul Normal 150-450 [facility] Comment on above: Performed By: #### C ADALGISA ####[facility] Ytbknmndgc[address]51 [place] [phone]. Elba Anthony POIKILOCYTOSIS 1+ Normal [facility] Comment on above: Performed By: #### C ADALGISA ####[facility] Bcodbjdgaj[address] [place] [phone]. Elba Anthony RBC 3.96 106/ul Critically low 4.70-6.10 [facility] Comment on above: Performed By: #### C ADALGISA ####[facility] Lscwbys[address] [place], [place] [address]Dr. Elba Anthony RDW 19.0 % Critically high 11.0-15.0 [facility] Comment on above: Performed By: #### C BCMAN ####[facility] Fwnfkthzfw8[address] [place] [phone]. Elba Anthony SEG # 10.37 103/ul Critically high 1.40-6.50 [facility] Comment on above: Performed By: #### C BCMAN ####[facility] Hxutuguofv[address] [place] [address]Dr. Elba Anthony SEG % 96.0 % Critically high 43.0-75.0 [facility] Comment on above: Performed By: #### C ADALGISA ####[facility] [address] [place], [place] [address]Dr. Elba Anthony TEAR DROP CELLS SLIGHT Normal [facility] Comment on above: Performed By: #### C ADALGISA ####[facility] [address] [place], [place] [address]Dr. Elba Anthony WBC 10.8 103/ul Normal 4.0-11.0 [facility] Comment on above: Performed By: #### C ADALGISA ####[facility] Eurbtsqlvi[address] [place], [place] [address]Dr. Elba Anthony CRPon 12-12-2021 CRP 3.1 mg/dL Critically high <=1.0 [facility] Comment on above: Performed By: #### C RP, TSH, T4 ####[facility] [address] [place], [place] [address]Dr. Elba Anthony CULTURE BLOODon 12-12-2021 Microscopic examination of blood, culture Culture Observations: Positive blood culture. Aerobic & anaerobic bottles. BCID=Pseudomonas aeruginosa Culture Observations: Sending to [facility] for workup. Normal [facility] Comment on above: Performed By: #### B LDCX2 ####[facility] Wh[address]ogczya[address] [place] [address]Dr. Elba Anthony Microscopic examination of blood, culture Culture Observations: Positive blood culture. Aerobic bottle. BCID= Pseudomonas aeruginosa. Culture Observations: Sending to [facility] for workup. Culture Observations: NO GROWTH AT 5 DAYS. ANAEROBIC BOTTLE Normal [facility] Comment on above: Performed By: #### B LDCX1 ####[facility] Hixlz[address]pb[address] [place] [phone]. Elba Anthony Covid-19 PCR (CVDTB)on SARS-CoV-2 (COVID-19) RNA ELIZABETH+probe Ql (Unsp spec) Not detected Normal NOT DETECTED [facility] Comment on above: Result Comment: When diagnostic testing is negative, the possibility of a false negative should be considered inthe context of a patient's recent exposures and the presence of clinical signs and symptomsconsistent with SARS-CoV-2.This test is not yet approved or cleared by the [place] Food and Drug Administration (FDA).This test was developed by [employer], [place], [place]. The performance characteristics ofthis test were validated by [facility]. The results are not intended to beused as the sole means for clinical diagnosis or patient management decisions. The [facility] is authorized under Clinical Laboratory [...] for this test is supported by the [place] of Health and Human Service's declaration that [...] be used). Performed By: #### C VDTBH ####[facility] J[address]iryitv[address] [place] [address]Dr. Elba Anthony LACTATE/LACTIC ACIDon 2021 Lactate [Moles/Vol] 2.0 mmol/L Normal 0.7-2.0 [facility] Comment on above: Performed By: #### L ACT ####[facility] Sqqyawaojg[address] [place] [address]Dr. Elba Anthony Lactate [Moles/Vol] 1.7 mmol/L Normal 0.7-2.0 [facility] Comment on above: Performed By: #### L ACT ####[facility] Tveq[address]wbtdj[address] [place] [address]Dr. Elba Anthony PROF CHEM 8 (BAS METB)on Anion gap [Moles/Vol] 14.7 mmol/L Normal [facility] Comment on above: Performed By: #### B MP, BNP, HSTROPN ####[facility] Fyhepvmjaq[address] [place] [address]Dr. Elba Anthony Calcium [Mass/Vol] 8.6 mg/dL Normal 8.5-10.1 [facility] Comment on above: Performed By: #### B MP, BNP, HSTROPN ####[facility] Ibxfgqyodr[address] [place] [address]Dr. Elba Anthony Chloride [Moles/Vol] 102 mmol/L Normal 98-107 [facility] Comment on above: Performed By: #### B MP, BNP, HSTROPN ####[facility] Xlhzgaofvj[address] [place] [address]Dr. Elba Anthony CO2 [Moles/Vol] 25.4 mmol/L Normal 22.0-30.0 [facility] Comment on above: Performed By: #### B MP, BNP, HSTROPN ####[facility] [address]jzpdhgfc[address] [place] [address]Dr. Elba Anthony Creatinine [Mass/Vol] 2.29 mg/dL Critically high 0.66-1.25 [facility] Comment on above: Performed By: #### B MP, BNP, HSTROPN ####[facility] Oewwoeivzj[address] [place] [address]Dr. Elba Anthony EGFR-AF ERITREAN 35 mL/min/1.73m2 Critically low >=60 [facility] Comment on above: Performed By: #### B MP, BNP, HSTROPN ####[facility] Zh[address]qingvd[address] [place] [address]Dr. Nereydasiobhan Raj EGFR-NON AF ERITREAN 28 mL/min/1.73m2 Critically low >=60 [facility] Comment on above: Performed By: #### B MP, BNP, HSTROPN ####[facility] Pbtq[address]juz[address] [place] [address]Dr. Elba Anthony Glucose [Mass/Vol] 130 mg/dL Critically high 74-106 [facility] Comment on above: Performed By: #### B MP, BNP, HSTROPN ####[facility] Uonxobarlk[address] [place] [address]Dr. Elba Anthony Potassium [Moles/Vol] 4.1 mmol/L Normal 3.4-5.0 [facility] Comment on above: Performed By: #### B MP, BNP, HSTROPN ####[facility] [address] [place], [place] [address]Dr. Elba Anthony Sodium [Moles/Vol] 138 mmol/L Normal 137-145 [facility] Comment on above: Performed By: #### B MP, BNP, HSTROPN ####[facility] [address]cbf[address] [place], [place] [address]Dr. Elba Anthony Urea nitrogen [Mass/Vol] 43.0 mg/dL Critically high 7.0-18.0 [facility] Comment on above: Performed By: #### B MP, BNP, HSTROPN ####[facility] [address] [place], [place] [address]Dr. Elba Anthony Urea nitrogen/Creatinine [Mass ratio] 18.8 mg/mg Normal [facility] Comment on above: Performed By: #### B MP, BNP, HSTROPN ####[facility] Dbmbwsrlsz[address] [place], [place] [address]Dr. Elba Anthony T4on 12-12-2021 T4 [Mass/Vol] 11.10 ug/dL Critically high 5.53-11.00 [facility] Comment on above: Performed By: #### C RP, TSH, T4 ####[facility] [address]qu[address] [place], [place] [address]Dr. Elba Anthony TROPONIN, HIGH SENSITIVITYon 12-12-2021 HSTROP 26.2 pg/mL Normal 4.0-42.2 [facility] Comment on above: Result Comment: CUT- OFF POINTS HAVE BEEN ESTABLISHED BASED ON THE FOURTH UNIVERSAL DEFINITIONS OF MYOCARDIALINFARCTION. THE UPPER REFERENCE LIMIT (URL) OF TROPONIN, DEFINED THE 99TH PERCENTILE OFcTnI DISTRIBUTION IN A REFERENCE POPULATION, HAS BEEN CONFIRMED THE DECISION THRESHOLDFOR ME DIAGNOSIS. Performed By: #### B MP, BNP, HSTROPN ####[facility] Sr[address]soj[address] [place] [phone]. Elba Anthony TSHon 12-12-2021 TSH 1.233 uIU/mL Normal 0.470-4.680 [facility] Comment on above: Performed By: #### C RP, TSH, T4 ####[facility] Gequivdcmn[address] [place] [address]Dr. [facility] TSH RANGE SEE BELOW Normal [facility] Comment on above: Result Comment: <0.3 4 UIU/ml HYPERTHYROID 0.34-5.60 UIU/ml EUTHYROID >5.60 UIU/ml HYPOTHYROID Performed By: #### C RP, TSH, T4 ####[facility] Txxlilxsrq[address] [place] [address]Dr. Elba Anthony US ARLIN DOP LEG RTon 12-13-19 22 US ARLIN DOP LEG RT Normal [facility] XR TIB_FIB RT 2Von 2 XR TIB_FIB RT 2V Normal [facility] APTTon 08-01-2021 aPTT Coag (Bld) [Time] 34.5 s Normal 25.0-35.0 Th e [facility] Comment on above: Result Comment: ALL [...] PURPOSE. Performed By: #### 5 0103 #### [facility] [address] [place] [address], [facility] BASIC METABOLIC PANELon 11-2 Calcium [Mass/Vol] 8.6 mg/dL Normal 8.6-10.3 [facility] Comment on above: Order Comment: No: D o not add to previous draw Performed By: #### 3 2044 #### [facility] [address] [place] [address], [place] Chloride [Moles/Vol] 108 mmol/L High 98-107 [facility] Comment on above: Order Comment: No: D o not add to previous draw Performed By: #### 3 2044 #### [facility] [address] [place] [address], [place] CO2 [Moles/Vol] 20 mmol/L Low 21-31 [facility] Comment on above: Order Comment: No: D o not add to previous draw Performed By: #### 3 2044 #### [facility] [address] [place] [address], [place] Creatinine [Mass/Vol] 2.66 mg/dL High 0.70-1.30 [facility] Comment on above: Order Comment: No: D o not add to previous draw Performed By: #### 3 2044 #### [facility] [address] [place] [address], [place] eGFR- 29 ml/min/1.73sq m Abnormal >60 [facility] Comment on above: Order Comment: No: D o not add to previous draw Performed By: #### 3 2044 #### [facility] [address] [place] [address], [place] eGFR- non- 24 ml/min/1.73sq m Abnormal >60 [facility] Comment on above: Order Comment: No: D o not add to previous draw Performed By: #### 3 2044 #### [facility] [address] [place] [address], [place] Glucose [Mass/Vol] 125 mg/dL High 70-100 [facility] Comment on above: Order Comment: No: D o not add to previous draw Performed By: #### 3 2044 #### [facility] [address] [place] [address], [place] Potassium [Moles/Vol] 4.4 mmol/L Normal 3.5-5.1 [facility] Comment on above: Order Comment: No: D o not add to previous draw Performed By: #### 3 2044 #### [facility] [address] [place] [address], [place] Sodium [Moles/Vol] 138 mmol/L Normal 136-145 [facility] Comment on above: Order Comment: No: D o not add to previous draw Performed By: #### 3 2044 #### [facility] [address] [place] [address], [place] Urea nitrogen [Mass/Vol] 54 mg/dL High 7-25 [facility] Comment on above: Order Comment: No: D o not add to previous draw Performed By: #### 3 2044 #### [facility] [address] [place] [address], [place] Calcium [Mass/Vol] 8.5 mg/dL Low 8.6-10.3 [facility] Comment on above: Order Comment: No: D o not add to previous draw Performed By: #### 5 102 #### [facility] [address] [place] [address], [place] Chloride [Moles/Vol] 107 mmol/L Normal 98-107 [facility] Comment on above: Order Comment: No: D o not add to previous draw Performed By: #### 5 102 #### [facility] [address] [place] [address], [place] CO2 [Moles/Vol] 23 mmol/L Normal 21-31 [facility] Comment on above: Order Comment: No: D o not add to previous draw Performed By: #### 5 0103 #### [facility] [address] [place] [address], [place] Creatinine [Mass/Vol] 2.86 mg/dL High 0.70-1.30 [facility] Comment on above: Order Comment: No: D o not add to previous draw Performed By: #### 5 0103 #### [facility] [address] [place] [address], [place] eGFR- 27 ml/min/1.73sq m Abnormal >60 [facility] Comment on above: Order Comment: No: D o not add to previous draw Performed By: #### 5 0103 #### [facility] [address] [place] [address], [facility] eGFR- non- 22 ml/min/1.73sq m Abnormal >60 [facility] Comment on above: Order Comment: No: D o not add to previous draw Performed By: #### 5 0103 #### [facility] [address] [place] [address], [place] Glucose [Mass/Vol] 114 mg/dL High 70-100 [facility] Comment on above: Order Comment: No: D o not add to previous draw Performed By: #### 5 0103 #### [facility] [address] [place] [address], [place] Potassium [Moles/Vol] 4.5 mmol/L Normal 3.5-5.1 [facility] Comment on above: Order Comment: No: D o not add to previous draw Performed By: #### 5 0103 #### [facility] [address] [place] [address], [place] Sodium [Moles/Vol] 138 mmol/L Normal 136-145 [facility] Comment on above: Order Comment: No: D o not add to previous draw Performed By: #### 5 0103 #### [facility] [address] Urea nitrogen [Mass/Vol] 58 mg/dL High 7-25 [facility] Comment on above: Order Comment: No: D o not add to previous draw Performed By: #### 5 0103 #### [facility] [address] CBC W/DIFFon 08-01-2021 ABS IMM GRANS 0.0 10*3/uL Normal 0.0-0.2 [facility] Comment on above: Order Comment: No: D o not add to previous draw Performed By: #### 5 0103 #### [facility] [address] [place] [address], [facility] ABS NEUTROPHILS 5.7 10*3/uL Normal 1.6-7.6 [facility] Comment on above: Order Comment: No: D o not add to previous draw Performed By: #### 5 0103 #### [facility] [address] [place] [address], [facility] Basophils (Bld) [#/Vol] 0.0 10*3/uL Normal 0.0-0.2 [facility] Comment on above: Order Comment: No: D o not add to previous draw Performed By: #### 5 0103 #### [facility] [address] [place] [address], [facility] Basophils/100 WBC (Bld) 0.4 % Normal 0.0-1.0 [facility] Comment on above: Order Comment: No: D o not add to previous draw Performed By: #### 5 0103 #### [facility] [address] [place] [address], [facility] Eosinophils (Bld) [#/Vol] 0.0 10*3/uL Normal 0.0-0.5 [facility] Comment on above: Order Comment: No: D o not add to previous draw Performed By: #### 5 0103 #### [facility] [address] Eosinophils/100 WBC (Bld) 0.6 % Normal 0.0-6.0 [facility] Comment on above: Order Comment: No: D o not add to previous draw Performed By: #### 5 0103 #### [facility] [address] [place] [address], [facility] Erythrocyte distribution width (RBC) [Ratio] 14.8 % Normal 11.5-15.0 [facility] Comment on above: Order Comment: No: D o not add to previous draw Performed By: #### 5 0103 #### [facility] [address] [place] [address], [facility] Hematocrit (Bld) [Volume fraction] 37.0 % Low 39.0-50.0 [facility] Comment on above: Order Comment: No: D o not add to previous draw Performed By: #### 5 0103 #### [facility] [address] [facility] [place] [address], [facility] Hemoglobin (Bld) [Mass/Vol] 11.4 g/dL Low 13.0-17.0 [facility] Comment on above: Order Comment: No: D o not add to previous draw Performed By: #### 5 0103 #### [facility] [address] [place] [address], [facility] IMMATURE GRANS 0.4 % Normal 0.0-1.0 [facility] Comment on above: Order Comment: No: D o not add to previous draw Performed By: #### 5 0103 #### [facility] [address] [facility] [place] [address], [facility] Lymphocytes (Bld) [#/Vol] 0.4 10*3/uL Low 1.2-4.0 [facility] Comment on above: Order Comment: No: D o not add to previous draw Performed By: #### 5 0103 #### [facility] [address] [place] [address], [facility] Lymphocytes/100 WBC (Bld) 5.6 % Low 20.0-45.0 [facility] Comment on above: Order Comment: No: D o not add to previous draw Performed By: #### 5 0103 #### [facility] [address] [place] [address], [facility] MCH (RBC) [Entitic mass] 27.9 pg Normal 27.0-33.0 [facility] Comment on above: Order Comment: No: D o not add to previous draw Performed By: #### 5 0103 #### [facility] [address] [place] [address], [facility] MCHC (RBC) [Mass/Vol] 30.8 g/dL Low 32.0-35.0 [facility] Comment on above: Order Comment: No: D o not add to previous draw Performed By: #### 5 0103 #### [facility] [address] [place] [address], [facility] MCV (RBC) [Entitic vol] 90.5 fL Normal 82.0-98.0 [facility] Comment on above: Order Comment: No: D o not add to previous draw Performed By: #### 5 0103 #### [facility] [address] [place] [address], [facility] Monocytes (Bld) [#/Vol] 0.6 10*3/uL Normal 0.1-1.0 [facility] Comment on above: Order Comment: No: D o not add to previous draw Performed By: #### 5 0103 #### [facility] [address] [place] [address], [facility] MONOS 8.7 % Normal 5.0-12.0 [facility] Comment on above: Order Comment: No: D o not add to previous draw Performed By: #### 5 0103 #### [facility] [address] [place] [address], [facility] Neutrophils/100 WBC (Bld) 84.3 % High 40.0-72.0 [facility] Comment on above: Order Comment: No: D o not add to previous draw Performed By: #### 5 0103 #### [facility] [address] [place] [address], [facility] Nucleated RBC/100 WBC (Bld) [Ratio] 0 % Normal 0-0 [facility] Comment on above: Order Comment: No: D o not add to previous draw Performed By: #### 5 0103 #### [facility] [address] [place] [address], [facility] PLAT CNT 144 10*3/uL Low 150-400 [facility] Comment on above: Order Comment: No: D o not add to previous draw Performed By: #### 5 0103 #### [facility] [address] [place] [address], [facility] RBC (Bld) [#/Vol] 4.09 10*6/uL Low 4.20-5.70 [facility] Comment on above: Order Comment: No: D o not add to previous draw Performed By: #### 5 0103 #### [facility] [address] [facility] [place] [address], [facility] WBC (Bld) [#/Vol] 6.75 10*3/uL Normal 4.00-10.60 [facility] Comment on above: Order Comment: No: D o not add to previous draw Performed By: #### 5 0103 #### [address] [address], [facility] CHEST AND LATERALon 08-01-20 CHEST AND LATERAL [facility] Department of Radiology [address] [place] [id number] Patient Name: MAN PATEL : 1950 Sex: M Age: Race: White Pt. Location: [facility] Patient Status: I Ordered Date: 08/01/2021 [...] pneumothorax. Electronically signed: Dilcia Hernandez. Transcribed by: [email or web address], User Resident: Electronically Signed by: DILCIA HERNANDEZ @ 08/01/2021 08:57 AM Gaffney [facility] Comment on above: Order Comment: Check Pacemaker/AICD Lead Position, Chest X-ray PA \EANDE\ LAT in Dept ;DO NOT lift affected arm above shoulder. S/P pacemaker/ICD implant. Verify lead placement CPKon 08-01-2021 CK [Catalytic activity/Vol] 576 U/L High 30-223 [facility] Comment on above: Performed By: #### 5 0103 #### [facility] [address] [facility] [address], [facility] Cardiovascular Lab Reporton 08-01-2021 Cardiovascular Lab Report [facility]: [id number] Department of Physician: Inocencio Franks M.D. Medicine Service Date: 07/31/2021 Division of Birthdate: 1950 Cardiology Room #: 5AB 659239 Adult Cardiovascular Services [place] [address] Cardiovascular Laboratory Report INDICATION FOR PERMANENT PACEMAKER [...] Franks M.D. Date Trans: 08/01/2021 05:31 A/mmo [id number] Normal [facility] MAGNESIUM BLOODon 08-01-2021 Magnesium [Mass/Vol] 2.2 mg/dL Normal 1.9-2.7 [facility] Comment on above: Order Comment: No: D o not add to previous draw Performed By: #### 5 0103 #### [facility] [address] [facility]. [address] PHOSPHORUS BLOODon 1 Phosphate [Mass/Vol] 2.9 mg/dL Normal 2.5-5.0 [facility] Comment on above: Order Comment: No: D o not add to previous draw Performed By: #### 5 0103 #### [facility] [address] PROTHROMBIN TIMEon 1 INR Coag (PPP) [Relative time] 1.54 {INR} High 0.91-1.16 [facility] Comment on above: Order Comment: [...] 1995;108:231S-246S. Performed By: #### 5 0103 #### [facility] [address] [place] [address], [place] PT Coag (PPP) [Time] 18.4 s High 12.3-14.8 [facility] Comment on above: Order Comment: No: D o not add to previous draw Result Comment: ALL RESULTS MUST BE INTERPRETED WITH RESPECT TO BLOOD DRAWING ARTIFACT OR DILUTION ERROR OF ANTICOAGULANT AT THE TIME OF SAMPLING. Performed By: #### 5 0103 #### [facility] [address] [place] [address], [place] INR Coag (PPP) [Relative time] 1.68 {INR} High 0.91-1.16 [facility] Comment on above: Result Comment: ACCC [...] 1995;108:231S-246S. Performed By: #### 5 0103 #### [facility] [address] [place] [address], [place] PT Coag (PPP) [Time] 19.7 s High 12.3-14.8 [facility] Comment on above: Result Comment: ALL RESULTS MUST BE INTERPRETED WITH RESPECT TO BLOOD DRAWING ARTIFACT OR DILUTION ERROR OF ANTICOAGULANT AT THE TIME OF SAMPLING. Performed By: #### 5 102 #### [facility] [address] [place] [address], [facility] URIC ACID BLOODon 08-01-2021 Urate [Mass/Vol] 10.1 mg/dL High 4.4-7.6 [facility] Comment on above: Performed By: #### 5 102 #### [facility] [address] [place] [address], [facility] BASIC METABOLIC PANELon 07-10 Calcium [Mass/Vol] 7.3 mg/dL Low 8.6-10.3 [facility] Comment on above: Performed By: #### 3 2044 #### [facility] [address] [place] [address], [facility] Chloride [Moles/Vol] 111 mmol/L High 98-107 [facility] Comment on above: Performed By: #### 3 2044 #### [facility] [address] [place] [address], [facility] CO2 [Moles/Vol] 17 mmol/L Low 21-31 [facility] Comment on above: Performed By: #### 3 2044 #### [facility] [address] [place] [address], [facility] Creatinine [Mass/Vol] 2.68 mg/dL High 0.70-1.30 [facility] Comment on above: Performed By: #### 3 2044 #### [facility] [address] [place] [address], [facility] eGFR- 29 ml/min/1.73sq m Abnormal >60 [facility] Comment on above: Performed By: #### 3 2044 #### [facility] [address] [place] [address], [facility] eGFR- non- 24 ml/min/1.73sq m Abnormal >60 [facility] Comment on above: Performed By: #### 3 2044 #### [facility] [address] [facility] Glucose [Mass/Vol] 147 mg/dL High 70-100 [facility] Comment on above: Performed By: #### 3 2044 #### [facility] [address] [facility]. [address] Potassium [Moles/Vol] 4.4 mmol/L Normal 3.5-5.1 [facility] Comment on above: Performed By: #### 3 2044 #### [facility] [address] [facility]. [address] Sodium [Moles/Vol] 138 mmol/L Normal 136-145 [facility] Comment on above: Performed By: #### 3 2044 #### [facility] [address] Urea nitrogen [Mass/Vol] 55 mg/dL High 7-25 [facility] Comment on above: Performed By: #### 3 2044 #### [facility] [address] [facility]. [address] CBC W/DIFFon 07-31-2021 ABS IMM GRANS 0.0 10*3/uL Normal 0.0-0.2 [facility] Comment on above: Performed By: #### 5 102 #### [facility] [address] [facility]. [address] ABS NEUTROPHILS 10.7 10*3/uL High 1.6-7.6 [facility] Comment on above: Performed By: #### 102 #### [facility] [address] [place] [address], [facility] Basophils (Bld) [#/Vol] 0.0 10*3/uL Normal 0.0-0.2 [facility] Comment on above: Performed By: #### 5 0103 #### [facility] [address] Basophils/100 WBC (Bld) 0.3 % Normal 0.0-1.0 [facility] Comment on above: Performed By: #### 5 0103 #### [facility] [address] [facility] [place] [address], [facility] Eosinophils (Bld) [#/Vol] 0.1 10*3/uL Normal 0.0-0.5 [facility] Comment on above: Performed By: #### 5 0103 #### [facility] [address] [facility] [address], [facility] Eosinophils/100 WBC (Bld) 0.4 % Normal 0.0-6.0 [facility] Comment on above: Performed By: #### 5 3 #### [facility] [address] [facility]. [address] Erythrocyte distribution width (RBC) [Ratio] 14.6 % Normal 11.5-15.0 [facility] Comment on above: Performed By: #### 5 3 #### [facility] [address] Hematocrit (Bld) [Volume fraction] 44.3 % Normal 39.0-50.0 [facility] Comment on above: Performed By: #### 5 3 #### [facility] [address] [facility]. [address] Hemoglobin (Bld) [Mass/Vol] 13.6 g/dL Normal 13.0-17.0 [facility] Comment on above: Performed By: #### 5 0103 #### [facility] [address] [place] [address], [facility] IMMATURE GRANS 0.3 % Normal 0.0-1.0 [facility] Comment on above: Performed By: #### 5 3 #### [facility] [address] Lymphocytes (Bld) [#/Vol] 0.5 10*3/uL Low 1.2-4.0 [facility] Comment on above: Performed By: #### 5 0103 #### [facility] [address] Lymphocytes/100 WBC (Bld) 4.1 % Low 20.0-45.0 [facility] Comment on above: Performed By: #### 3 #### [facility] [address] MCH (RBC) [Entitic mass] 27.6 pg Normal 27.0-33.0 [facility] Comment on above: Performed By: #### 102 #### [facility] [address] MCHC (RBC) [Mass/Vol] 30.7 g/dL Low 32.0-35.0 [facility] Comment on above: Performed By: #### 5 3 #### [facility] [address] MCV (RBC) [Entitic vol] 90.0 fL Normal 82.0-98.0 [facility] Comment on above: Performed By: #### 5 3 #### [facility] [address] [place] [address], [facility] Monocytes (Bld) [#/Vol] 1.0 10*3/uL Normal 0.1-1.0 [facility] Comment on above: Performed By: #### 5 0103 #### [facility] [address] MONOS 8.3 % Normal 5.0-12.0 [facility] Comment on above: Performed By: #### 5 3 #### [facility] [address] [place] [address], [place] Neutrophils/100 WBC (Bld) 86.6 % High 40.0-72.0 [facility] Comment on above: Performed By: #### 5 0103 #### [facility] [address] [place] [address], [facility] Nucleated RBC/100 WBC (Bld) [Ratio] 0 % Normal 0-0 [facility] Comment on above: Performed By: #### 5 0103 #### [facility] [address] [place] [address], [facility] PLAT CNT 175 10*3/uL Normal 150-400 [facility] Comment on above: Performed By: #### 5 0103 #### [facility] [address] RBC (Bld) [#/Vol] 4.92 10*6/uL Normal 4.20-5.70 [facility] Comment on above: Performed By: #### 5 0103 #### [facility] [address] [place] [address], [facility] WBC (Bld) [#/Vol] 12.36 10*3/uL High 4.00-10.60 [facility] Comment on above: Performed By: #### 5 0103 #### [facility] [address] POC SARS COV2 ANTIGEN NEGATI VEon 07-31-2021 POC SARS COV2 ANTIGEN NEG Negative Normal NEGATIVE [facility] Comment on above: Result Comment: Nega [...] of Accreditation. Performed By: #### 3 1977 ####[place] [id number] [address] PORTABLE CHEST 1 VIEWon 07-10 PORTABLE CHEST 1 VIEW [facility] Department of Radiology [address] [place] [address] Patient Name: MAN PATEL : 1950 Sex: M Age: Race: White Pt. Location: [facility] Patient Status: E Ordered Date: 07/31/2021 [...] sternotomy. Electronically signed: Rinku Agrawal. Transcribed by: [email or web address], User Resident: Electronically Signed by: RINKU AGRAWAL @ 07/31/2021 01:03 PM Normal [facility] Comment on above: Order Comment: Evalu ate for Aspiration TROPONIN-Ion 07-31-2021 Troponin I.cardiac [Mass/Vol] 0.07 ng/mL High 0.00-0.04 [facility] Comment on above: Result Comment: REFE RENCE RANGES: 0.00 - 0.04 ng/ml NORMAL 0.05 - 0.50 ng/ml INDETERMINATE > 0.50 ng/ml CONSISTENT WITH AN M.I. Performed By: #### 3 2044 #### [facility] [address] [facility]. [address] TSH3 WITH REFLEX FT4on 07-31 TSH 3RD GENERATION 1.98 uIU/mL Normal 0.34-5.60 [facility] Comment on above: Performed By: #### 3 2044 #### [facility] [address] [facility]. [address] Vital Signs Date Time Vital Sign Value Performing Clinician Facility 06-08-2024 13:54-0400 Body mass index (BMI) [Ratio] 43.5 kg/m2 [facility] 06-08-2024 13:47-0400 Body height 175.26 cm [facility] 06-08-2024 13:47-0400 Body temperature 98 [degF] [facility] 06-08-2024 13:47-0400 Body weight 133.8 kg [facility] 06-08-2024 13:47-0400 Diastolic blood pressure 73 mm[Hg] [facility] 06-08-2024 13:47-0400 Heart rate 93 /min [facility] 06-08-2024 13:47-0400 Respiratory rate 18 /min [facility] 06-08-2024 13:47-0400 SaO2% (BldA) [Mass fraction] 92 % [facility] 06-08-2024 13:47-0400 Systolic blood pressure 120 mm[Hg] [facility] 12-23-2023 13:53-0400 Body height 175.26 cm [facility] 12-23-2023 13:53-0400 Body mass index (BMI) [Ratio] 43.8 kg/m2 [facility] 12-23-2023 13:53-0400 Body temperature 96.9 [degF] [facility] 12-23-2023 13:53-0400 Body weight 134.71 kg [facility] 12-23-2023 13:53-0400 Diastolic blood pressure 60 mm[Hg] [facility] 12-23-2023 13:53-0400 Heart rate 91 /min [facility] 12-23-2023 13:53-0400 Respiratory rate 20 /min [facility] 12-23-2023 13:53-0400 SaO2% (BldA) [Mass fraction] 97 % [facility] 12-23-2023 13:53-0400 Systolic blood pressure 110 mm[Hg] [facility] 05-27-2023 13:00-0400 Body height 175.26 cm Dedra Mendoza Other [facility] [employer] Other 05-27-2023 13:00-0400 Body mass index (BMI) [Ratio] 41.93 kg/m2 Dedra Mendoza Other [facility] [employer] Other 05-27-2023 13:00-0400 Body temperature 96.8 [degF] Dedra Mendoza Other [employer] Other 05-27-2023 13:00-0400 Body weight 128.82 kg Dedra Mendoza Other [employer] Other 09-19-2023 13:00-0400 Diastolic blood pressure 64 mm[Hg] Aziz Bakhous Other [employer] Other 05-27-2023 13:00-0400 Respiratory rate 20 /min Aziz Bakhous Other [employer] Other 05-27-2023 13:00-0400 SaO2% (BldA) [Mass fraction] 96 % Aziz Bakhous Other [employer] Other 05-27-2023 13:00-0400 Systolic blood pressure 111 mm[Hg] Aziz Bakhous Other [employer] Other 12-10-2022 15:00-0400 Body height 175.26 cm Azdueyn Bakhous Other [employer] Other 12-10-2022 15:00-0400 Body mass index (BMI) [Ratio] 39.75 kg/m2 Aziz Bakhous Other [employer] Other 12-10-2022 15:00-0400 Body temperature 96.7 [degF] Azduyen Bakhous Other [employer] Other 12-10-2022 15:00-0400 Body weight 122.11 kg Aziz Bakhous Other [employer] Other 12-10-2022 15:00-0400 Diastolic blood pressure 70 mm[Hg] Aziz Bakhous Other [employer] Other 12-10-2022 15:00-0400 Respiratory rate 20 /min Aziz Bakhous Other [employer] Other 12-10-2022 15:00-0400 SaO2% (BldA) [Mass fraction] 95 % Aziz Bakhous Other [employer] Other 12-10-2022 15:00-0400 Systolic blood pressure 110 mm[Hg] Aziz Bakhous Other [employer] Other 09-17-2022 11:00-0500 Body height 175.26 cm Azduyen Bakhous Other [employer] Other 09-17-2022 11:00-0500 Body mass index (BMI) [Ratio] 39.54 kg/m2 Azduyen Bakhous Other [employer] Other 09-17-2022 11:00-0500 Body temperature 96.2 [degF] Aziz Bakhous Other [employer] Other 09-17-2022 11:00-0500 Body weight 121.47 kg Azduyen Bakhous Other [employer] Other 09-17-2022 11:00-0500 Diastolic blood pressure 60 mm[Hg] Aziz Bakhous Other [employer] Other 09-17-2022 11:00-0500 Respiratory rate 20 /min Aziz Bakhous Other [employer] Other 09-17-2022 11:00-0500 SaO2% (BldA) [Mass fraction] 97 % Aziz Bakhous Other [employer] Other 09-17-2022 11:00-0500 Systolic blood pressure 102 mm[Hg] Aziz Bakhous Other [facility] [employer] Other 06-27-2022 17:43-0400 Diastolic blood pressure 56 mm[Hg] MD Cullen Costa Work Phone: [facility] 06-27-2022 17:43-0400 Heart rate 78 /min MD Cullen Costa Work Phone: [facility] 06-27-2022 17:43-0400 Respiratory rate 20 /min MD Cullen Costa Work Phone: [facility] 06-27-2022 17:43-0400 SaO2% (BldA) [Mass fraction] 95 % MD Cullen Costa Work Phone: [facility] 06-27-2022 17:43-0400 Systolic blood pressure 109 mm[Hg] MD Cullen Costa Work Phone: [facility] 06-27-2022 14:32-0400 Body height 167.64 cm MD Cullen Costa Work Phone: [facility] 06-27-2022 14:32-0400 Body temperature 97.8 [degF] MD Cullen Costa Work Phone: [facility] 06-27-2022 14:32-0400 Body weight 117.02 kg MD Cullen Costa Work Phone: [facility] Encounters Encounter Date Encounter Type Care Provider Facility Start: 06-15-2024 ambulatory [facility] Start: 06-09-2024 End: [facility] Start: 06-09-2024 End: 06-09-2024 ambulatory [facility] Start: 06-08-2024 End: 06-08-2024 ambulatory [facility] Work Phone: Start: 06-08-2024 End: 06-08-2024 Patient encounter procedure [facility] Work Phone: Start: 06-02-2024 Non-patient / Non-visit [facility] Work Phone: Start: 05-05-2024 End: 05-05-2024 ambulatory [facility] Start: 04-30-2024 Non-patient / Non-visit [facility] Work Phone: Start: 01-27-2024 End: 01-27-2024 ambulatory [facility] Start: 12-23-2023 End: 12-23-2023 ambulatory [facility] Work Phone: Start: 12-23-2023 End: 12-23-2023 Patient encounter procedure [facility] Work Phone: Start: 12-17-2023 Non-patient / Non-visit [facility] Work Phone: Start: 10-20-2023 End: 10-20-2023 ambulatory [facility] Start: 07-28-2023 End: 07-28-2023 ambulatory [facility] Start: 06-09-2023 End: 06-09-2023 ambulatory Cullen Costa Other [employer] Other Start: 06-09-2023 Telephone encounter Cullen Costa [facility] Start: 05-27-2023 End: 05-27-2023 ambulatory Azduyen Robersons Other [facility] [employer] Other Start: 05-27-2023 Office outpatient visit 25 minutes Azduyen Robersons [facility] Start: 05-20-2023 End: 05-20-2023 ambulatory Cullen Costa Other [employer] Other Start: 05-20-2023 Telephone encounter Cullen Costa [facility] Start: 12-10-2022 End: 12-10-2022 ambulatory Azduyen Bakevangelinas Other [employer] Other Start: 12-10-2022 Office outpatient visit 25 minutes Aziz Bakhous [facility] Start: 12-03-2022 End: 12-04-2022 ambulatory AZIZ BAKHOUS Facility:[facility] Start: 11-27-2022 End: 11-28-2022 ambulatory AZIZ BAKHOUS Facility:[facility] Start: 09-17-2022 End: 09-17-2022 ambulatory Aziz Bakhous Other [employer] Other Start: 09-17-2022 Office outpatient ne w 30 minutes Aziz Bakhous [facility] Start: 07-25-2022 End: 07-25-[address] MARK INIGUEZ Facility:[facility] Start: 07-10-2022 End: 07-11-[address] TIGIST IGLESIAS Facility:[facility] Start: 06-27-2022 End: 06-27-2022 Emergency department patient visit Cullen Costa Facility:[facility] Start: 06-27-2022 End: 06-27-2022 Emergency department patient visit MD Cullen Costa Work Phone: [facility] Start: 06-24-2022 End: 06-25-2022 ambulatory GAGE SIMPSON Facility:[facility] Start: 04-29-2022 ambulatory MIS Herring lity:[facility] Start: 04-26-2022 End: 05-03-2022 ambulatory CULLEN COSTA Facility:[facility] Start: 04-25-2022 End: 05-09-2022 Evaluation and management of inpatient TAYLOR HOWARD Facility:[facility] Start: 04-24-2022 End: 04-25-2022 ambulatory VIOLETA VILLAREAL Facility:[facility] Start: 04-22-2022 End: 04-22-2022 ambulatory CYNTHIA PALMA Facility:[facility] Start: 04-15-2022 End: 04-15-[address] LI CINTRON Facility:[facility] Start: 04-04-2022 End: 04-05-2022 ambulatory MIS STORM Facility:[facility] Start: 04-02-2022 End: 04-02-[address] LI CINTRON Facility:[facility] Start: 04-01-2022 End: 04-01-[address] WALE Klein Facility:[facility] Start: 03-12-2022 End: 03-13-2022 [facility] Start: 02-14-2022 End: 02-15-2022 ambulatory [facility] Start: 01-16-2022 End: 01-17-2022 ambulatory [facility]IS D[facility] Start: 01-07-2022 End: 01-08-2022 [...] Evaluation and management of inpatient REFERRED SELF Facility:[facility] Procedures Date Procedure Procedure Detail [...] limb veins US venous duplex LE BI [facility] Start: 06-27-2022 US Lower extremity v ein - bilateral [facility] Bacteria identified in Blood by Culture [facility] Patient Education Cellulitis (Sk in Infection), Adult (DC) [facility] Work Phone: Patient referral [facility] Work Phone: Renal function 1999 panel - Serum or Plasma [facility] Renal function 1999 panel - Serum or Plasma [facility] Payers Date Payer Category Payer Unknown [id number] 1957 Medicare [id number] 1959 Self-pay 1959 Unknown [id number] 1952 Unknown [id number] 2.16.8 40.1.332539.3.579.2.647 1952 Unknown [id number] 2.16.8 40.1.924242.3.579.2.647 1952 Unknown [id number] 2.16.8 40.1.867558.3.579.2.647 1952 Unknown [id number] 2.16.84 0.1.322063.3.579.2.593 1952 Unknown [id number] 2.16.84 0.1.972083.3.579.2.593 1952 Unknown [id number] 2.16.84 0.1.157304.3.579.2.593 1952 Unknown [id number] 2.16.84 0.1.450958.3.579.2.593 1952 Unknown [id number] 2.16.84 0.1.320762.3.579.2.593 1952 Unknown [id number] 2.16.84 0.1.175019.3.579.2.593 1952 Unknown [id number] 2.16.84 0.1.803317.3.579.2.593 1952 Unknown [id number] 2.16.84 0.1.070813.3.579.2.593 1952 Unknown [id number] 2.16.84 0.1.080513.3.579.2.593 1952 Unknown [id number] 2.16.84 0.1.870761.3.579.2.593 1952 Unknown [id number] 2.16.84 0.1.640789.3.579.2.593 1952 Unknown [id number] 2.16.84 0.1.023025.3.579.2.593 1952 Unknown [id number] 2.16.84 0.1.618119.3.579.2.593 1952 Unknown [id number] 2.16.84 0.1.098980.3.579.2.593 1952 Unknown [id number] 2.16.84 0.1.331153.3.579.2.593 1952 Unknown [id number] 2.16.84 0.1.558074.3.579.2.593 1952 Unknown [id number] 2.16.84 0.1.018182.3.579.2.593 1952 Unknown [id number] 2.16.84 0.1.361967.3.579.2.593 1952 Unknown [id number] 2.16.84 0.1.832177.3.579.2.593 1952 Unknown [id number] 2.16.84 0.1.599503.3.579.2.593 1952 Unknown [id number] 2.16.84 0.1.897617.3.579.2.593 1952 Unknown [id number] 2.16.84 0.1.454227.3.579.2.593 Unknown [id number] 2.16.8 40.1.094968.3.579.2.531 [id number] Social History Date Type Detail Facility Start: 06-27-2022 End: 12-23-2023 Tobacco smoking status NHIS Never smoked tobacco (finding) [facility] Start: 1950 Sex Assigned At Male F [facility] Sex Assigned At Sex Assigned At Bir th [employer] Other Clinical Notes 08-02-2021 to 06-09-2024 Note Date & Type Note Facility 06-09-2024 Note [facility] Subjective Man Patel is a 74 [...] MORNING AND AT (more content not included)... [facility] 05-05-2024 Note Pt is here for a fol low up with echo and labs. Pt denies palpatations, chest pain, dizzines. Review of Systems Cardiovascular: Positive for leg swelling. Hematologic/Lymphatic: Bruises/bleeds easily. All other systems reviewed and are negative. [facility] 05-05-2024 Note Cardiovascular [facility] SUBJECTIVE Chief Complaint Patient presents [...] soft. Musculoskeletal: G (more content not included)... [facility] 01-27-2024 Note This report has been cancelled. [facility] 10-20-2023 Note [facility] Subjective Man Patel is a [...] or chew., Disp: (more content not included)... [facility] 05-27-2023 Evaluation note Encounter Date Diagnosis [...] I50.20) Patient follows with cardiology clinic in [facility] every 3 months. Has had seems [...] 2.4 cm in the right 4.2 cm [employer] Other 04-04-2023 Evaluation note* Encounter Date Diagnosis [...] I50.20) Patient follows with cardiology clinic in [facility] every 3 months. Has had seems [...] D is low. As the patient take bsur-enp-qbafteb vitamin D supplement 2000 unit daily Dec, [...] 2.4 cm in the right 4.2 cm [employer] Other [id number] Evaluation note* Encounter Date Diagnosis Assessment Notes [...] I50.20) Patient follows with cardiology clinic in [facility] every 3 months. Has had seems compensating. Patient on spironolactone and Bumex. Patient follows low-salt diet hours himself every day. Sep, Presence of permanent cardiac pacemaker (ICD-10 - Z95.0) Patient has history of complete heart block status post permanent pacemaker with defibrillator placement in 2020. And Eliquis and amiodarone in addition to metoprolol. Follows with cardiology clinic [employer] Other 08-30-2022 NoteMR#: [id number] I [facility] Pt. Name: Man Patel Admitted: 04/25/2022 [...] x2 on 04/29 and 05/03, insertion of [place] catheter and removal, and echocardiogram. CONSULTATIONS: Included Cardiology, Nephrology, vascular service and medical ICU. HOSPITAL COURSE: This patient is a 72-year-old male, who presents to the [facility] as a transfer from [facility] with complaints of worsening shortness of breath and weeping edema. The patient was accepted for transfer by the [facility] Cardiology Service for failed outpatient [...] at this time for discharging to a shelter facility with close followup with Cardiology and [...] The patient is being discharged to a shelter facility. Please note that an addendum may be added to this discharge dictation as the patient's discharge is currently pending placement at this time. MEDICATIONS: As per medication reconciliation and as per above. DISCHARGE INSTRUCTIONS: Activity as tolerated with PT and OT at facility. Heart healthy, low-cholesterol diet with (more content not included)...[facility]11-25-2021 NoteMR#: [id number] I [facility] Pt. Name: Man Patel Admitted: 07/31/2021 [...] reduced ejection fraction, who initially presented to [facility] for bradycardia. He was having syncopal episodes, where he was found to have heart rate in the 30s. Atropine was given at [place] without any help. His blood pressure was stable at that time and was transferred to [facility]. On arrival, his EKG revealed [...] and followup as an outpatient close to [place] where the patient is from and interested [...] [facility]. 2. Follow up with [facility] Heart on 08/10/2021 for wound/pacemaker check at 11:20 a.m. 3. Follow up with [facility] Cardiovascular on 09/04/2021 at 2:[address] [place] [address] Cintron. 4. Follow up with Nephrology around [place]. 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) acute Presence of permanent cardiac pacemaker acute Renal cyst, acquired acute Systolic congestive heart failure acute Vitamin D deficiency [facility] Work Phone: History general Narrative - Reported* Type Description Date Medical History varicose veins Medical History Hypertension Medical History obesity Medical History thrombophlebitis Medical History possible DVT Medical History CAD Medical History ACUTE HYPOXIC RESPIRATORY FAILUR E Surgical History triple bypass 03/2000 Hospitalization History bypass Hospitalization History EDEMIA 06/29 Hospitalization History EDEMIA 04/2022 [employer] Other Hiswmsf general Narrative - Reported* Type Description Date Medical History varicose veins Medical History Hypertension Medical History obesity Medical History thrombophlebitis Medical History possible DVT Medical History CAD Medical History ACUTE HYPOXIC RESPIRATORY FAILUR E Surgical History triple bypass 03/2000 Hospitalization History bypass Hospitalization History EDEMA 06/29 Hospitalization History EDEMA 04/2022 [employer] Other Hospital Discharge instructions Additional Instructions Take antibiotics as instructed until gone Elevate lower extremities You have blood cultures pending Follow-up with home care your primary care doctor call tomorrow for appointment Return here if any problems persist or worsen including fever, chills, increased redness, increased swelling or [facility] Work Phone: Summary Purpose Family [...] and content) DATE CREATED AUTHOR 05/15/2022 [facility] DATE CREATED AUTHOR AUTHOR'S ORGANIZ ATION 07/05/2022 [facility] DATE CREATED AUTHOR AUTHOR'S ORGANIZ ATION 12/11/2022 [facility] DATE CREATED AUTHOR AUTHOR'S ORGANIZ ATION 06/16/2024 [facility] Care Teams (unrecognized sec tion and [...] BE BASED ON THE PRIMARY CLINICAL RECORDS. [facility]. provides no warranty or guarantee of the accuracy or completeness of information in this document.
== END 2024-06-18 14:05 | disposition home or self-care (01) ==
LOC: LAB 14:04
PROVIDERS: PCP Family Medicine; Visit Provider Internal Medicine Cardiovascular Disease
DX: R06.02 Shortness of breath (principal)
CPT/HCPCS: 36415; 71046; 83880

== ENCOUNTER 2024-06-21 11:08 | Outpatient (OUT) | payer MEDICARE, OTHER, SELFPAY ==
--- OUTSIDE RECORDS SUMMARY | 2024-06-21 11:20 | XMS_ITS | CCD ---
Author Organization [facility] Care Team Providers Care Construction Safety Consultant Name Role Phone ANNELIESE HOWARDD Admitting Unavailable [...] IGOR, DR CULLEN Felton Primary Care Unavailable SUNDANCE, DR ZE Moraes Consulting Unavailable DEDRA MENDOZA [...] DELBERT Brown Consulting Unavailabl e COSTA, DR CLULEN Felton Primary Care Unavailable BUTCH ., EDWARD Consulting Unavailable KLKAT, ZE Consulting Unavailable HIGHLANDER, MIS Dye Admitting Unavailable HIGHLANDER, MSI Dye Attending Unavailable COSTA, DR CULLEN Felton [...] MIS Consulting Unavailable TIFFANIE SALGADO Consulting Unavailable SUNDANCE, DR ZE Moraes Attending Unavailable SATURNINO, DR ZE Moraes Admitting Unavailable [facility], DR MEDEIROS Primary Care Unavailable EMETERIO, MIS Dye Attending Unavailable EMETERIO, MIS Dye Admitting Unavailable COSTA, DR CULLEN Felton Primary Care Unavailable BAKRICHARDSON, DEDRA Attending Unavailable BAKOLIVIERS, DEDRA Admitting Unavailable BAKOLIVIERS, AZDUYEN Consulting Unavailable IGOR, DR CULLEN Felton Primary Care Unavailable Cullen Costa Unavailable LI CINTRON Referring Unavailable MORADHA, LI Attending Unavailable GAGE SIMPSON Referring Unavailable TATIANA, GAGE Referring Unavailable MOUKAGALI, LI Attending Unavailable GAGE SIMPSON Referring Unavailable MOUKAGALI, LI Attending Unavailable MORADHA, LI Admitting Unavailable CYNTHIA PALMA Attending Unavailable Allergies Allergy Classification Reported Allergen(s) Allergy Type Date of Onset Reaction(s) Facility (3 sources) patient allergy list reviewed by nurse or physicia Propensity to adverse reactions Comment:Done [facility] Other (3 sources) Allergies Reconciled Propensity to adverse reactions Unknown [facility] Other Medications Current Medications Medication Drug Class(es) [...] 23, 2023 1:58pm take 3 tablets by [facility] every twelve hours Bumetanide 1 MG 3 tablet Orally TWICE A DAY Active cholecalciferol 0.05 mg oral tablet (8 sources) Vitamin D Start: 12-23-2023 End: 06-08-2024 take 50 ug by mouth once daily Cholecalciferol (Vitamin D3) Active 50 MCG PO Daily June 08, 2024 2:05pm Start: 12-10-2022 take 1 capsule by [facility] once daily Cholecalciferol 25 MCG (1000 UT) 1 capsule Orally Once a day for 90 days Dec, Active take 1 capsule by [facility] once daily Cholecalciferol 25 MCG (1000 UT) [...] 23, 2023 1:59pm take 1 tablet by [facility] every twelve hours hydrALAZINE HCl 10 MG [...] disease (6 sources) Atherosclerotic heart disease of [place] coronary artery without angina pectoris; Translations: [Atherosclerosis of coronary artery without angina pectoris] Onset: 07-18-2022 Chronic Coronary atherosclerosis and other heart disease (3 sources) Presence of aortocoronary bypass graft; Translations: [PRESENCE AORTOCORONARY BYPASS GRAFT] Onset: 07-18-2022 Episodic Disorders of lipid metabolism (5 sources) Pure [...] leg and/or ankle] Onset: 04-12-2022 Episodic Other aftercare (3 sources) Other shelter (current) drug therapy; Translations: [OTH LONGTERM CURRENT DRUG THERAPY] Onset: 07-18-2022 Episodic Other circulatory disease (3 sources) Elevated [...] Other Problems Problem Classification Problem Date Documented Date Episodic/Chronic Acute and unspecified renal failure (1 source) Acute kidney failure, unspecified; Translations: [ACUTE KIDNEY FAILURE UNSPECIFIED] Onset: 12-21-2021 Episodic Bacterial infection; unspecified site (2 sources) Bacteremia; Translations: [Pseudomonas (aeruginosa) (mallei) (pseudomallei) as the cause of diseases classified elsewhere] Onset: 12-21-2021 Episodic E Codes: Fall (1 source) Fall on same level, unspecified, initial encounter; Translations: [FALL SAME LEVEL UNSPECIFIED INITIAL] Onset: 04-04-2022 Episodic Fluid and electrolyte disorders (1 source) Dehydration; Translations: [DEHYDRATION] Onset: 07-18-2022 Episodic Malaise and fatigue (4 sources) Weakness; Translations: [WEAKNESS] Onset: 04-01-2022 Episodic Other aftercare (1 source) alf (current) use of aspirin; Translations: [LONGTERM CURRENT USE OF ASPIRIN] Onset: 07-18-2022 Episodic Other aftercare (1 source) lobsterman (current) use of anticoagulants; Translations: [LONGTERM CURRNT USE ANTICOAGULANTS] Onset: 04-26-2022 Episodic Other [...] Test Name Value Interpretation Reference Range Facility [id number] 36 Per diogo increase bumax to 3 mg TID and see GVM sharlene. Pt informed and appt made for friday Normal [facility] Orders Onlyon 06-17-2024 Orders Only [id number] Man Patel 1950 M Date Provider Department Center 06/17/2024 DANNIE GO [facility] Family History Problem Relation Age of Onset Coronary artery disease Mother Hyperlipidemia Mother Hypertension Mother Stroke Mother Diabetes Mother Coronary artery disease Father Hyperlipidemia Father Hypertension Father Family Status - Relation Status Age at Mother Father Normal [facility] Office Visiton 06-09-2024 Follow-up visit [id number] Man Patel 1950 M Date Provider Department Center 06/09/2024 LI MADDOX [facility] Family History Problem Relation Age of Onset Coronary artery disease Mother Hyperlipidemia Mother Hypertension Mother Stroke Mother Diabetes Mother Coronary artery disease Father Hyperlipidemia Father Hypertension Father Family Status - Relation Status Age at Mother Father Level of Service:13390 [place] OFFICE/OUTPATIENT ESTABLISHED HIGH MDM 40 MIN Normal [facility] Erythrocyte distribution wid th Auto (RBC) [Ratio]on 06-02-2024 Erythrocyte distribution width (RBC) [Ratio] 15.0 % 11.0-15.0 [facility] Estimated glomerular filtrat ion rate (GFR) non- Americanon 06-02-2024 GFR/1.73 sq M.predicted among non-blacks MDRD (S/P/Bld) [Vol rate/Area] 25 mL/min/{1.73_m2} Low >=60 [facility] Hematocrit Auto (Bld) [Volum e fraction]on 06-02-2024 Hematocrit (Bld) [Volume fraction] 48.1 % 42.0-54.0 [facility] Hemoglobin [Mass/volume] in Bloodon 06-02-2024 Hemoglobin (Bld) [Mass/Vol] 15.3 g/dL 14.0-18.0 [facility] Laboratory - Chemistry and C hemistry - challengeon 06-02-2024 Albumin [Mass/Vol] 3.9 g/dL 3.4-5.0 [facility] Calcium [Mass/Vol] 9.6 mg/dL 8.5-10.1 [facility] Chloride [Moles/Vol] 99 mmol/L 98-107 [facility] CO2 [Moles/Vol] 32.9 mmol/L High 21.0-32.0 [facility] Creatinine [Mass/Vol] 2.55 mg/dL High 0.70-1.30 [facility] GFR/1.73 sq M.predicted MDRD (S/P/Bld) [Vol rate/Area] 30 mL/min/{1.73_m2} Low >=60 [facility] Glucose [Mass/Vol] 117 mg/dL High 74-106 [facility] Magnesium [Mass/Vol] 2.5 mg/dL High 1.8-2.4 [facility] Potassium [Moles/Vol] 4.0 mmol/L 3.5-5.1 [facility] Sodium [Moles/Vol] 135 mmol/L Low 136-145 [facility] Urate [Mass/Vol] 8.1 mg/dL High 3.5-7.2 [facility] Urea nitrogen [Mass/Vol] 57.0 mg/dL High 7.0-18.0 [facility] Urea nitrogen/Creatinine [Mass ratio] 22.4 mg/mg [facility] Bilirubin Ql (U) Negative NEGATIVE [facility] Glucose (U) [Mass/Vol] Negative NEGATIVE [facility] Ketones Ql (U) Negative NEGATIVE [facility] pH (U) 6.5 [pH] 5.0-9.0 [facility] Specific gravity (U) [Rel density] 1.015 1.005-1.025 [facility] Urobilinogen Qn (U) 2.0 {Caden'U}/dL Abnormal 0.2-1.0 [facility] - Specimen inform ationon 06-02-2024 Appearance (U) CLEAR CLEAR [facility] Color (U) LT. YELLOW YELLOW [facility] - Urinalysison Leukocyte esterase Test strip Ql (U) Negative NEGATIVE [facility] Nitrite Ql (U) Negative NEGATIVE [facility] Protein (U) [Mass/Vol] 18.3 mg/dL High <=11.9 [facility] Protein Ql (U) Negative NEG/TRACE [facility] Leukocytes [#/volume] correc chester for nucleated erythrocytes in Blood by Automated counon 06-02-2024 WBC corrected for nucl RBC Auto (Bld) [#/Vol] 8.5 10 3/uL 4.0-11.0 [facility] MCH Auto (RBC) [Entitic mass ]on 06-02-2024 MCH (RBC) [Entitic mass] 30.2 pg 25.9-34.0 [facility] MCHC Auto (RBC) [Mass/Vol]on 06-02-2024 MCHC (RBC) [Mass/Vol] 31.8 g/dL 29.9-35.2 [facility] MCV Auto (RBC) [Entitic vol] on 06-02-2024 MCV (RBC) [Entitic vol] 94.9 fL High 80.0-94.0 [facility] Microalbumin [Mass/volume] i n Urineon 06-02-2024 Albumin DL <= 20 mg/L (U) [Mass/Vol] mg/dL <=30.0 [facility] No Panel Informationon 06-02 25-Hydroxy Vitamin D Total 29.9 ng/mL [facility] Comment on above: <20 ng/mL Vit D defi cient20-<30 ng/mL Vit D [id number] ng/mL Vit D sufficient>100 ng/mL Potential Toxicity Parathyroid Hormone (Intact) 85 pg/mL Abnormal 15-65 [facility] Comment on above: Performed at: - [employer] [address] [id number] Director: New Vega PhD, Phone: [phone] Phosphorus Level 3.3 mg/dL 2.6-4.7 [facility] Urine Occult Blood Negative NEGATIVE [facility] Urine Random Creatinine 96.57 mg/dL 20.00-300.00 [facility] Platelet mean volume Auto (B ld) [Entitic vol]on 06-02-2024 Platelet mean volume (Bld) [Entitic vol] 9.9 fL 9.5-13.5 [facility] Platelets Auto (Bld) [#/Vol] on 06-02-2024 Platelets (Bld) [#/Vol] 182 10 3/uL 150-450 [facility] RBC Auto (Bld) [#/Vol]on RBC (Bld) [#/Vol] 5.07 10 6/uL 4.70-6.10 [facility] Serum or plasma anion gap de terminationon 06-02-2024 Anion gap [Moles/Vol] 7.1 mmol/L [facility] Urine microalbumin/creatinin e mass ratioon 06-02-2024 Albumin/Creatinine DL <= 20 mg/L (U) [Mass ratio] 13.4 mg/g 0.0-29.9 [facility] Comment on above: NO MICROALBUMINURIA 0-29 MG/GCLINICAL MICROALBUMINURIA 30-300 MG/GMACROALBUMINURIA >300 MG/G Urine protein/creatinine rat ioon 06-02-2024 Protein/Creatinine (U) [Ratio] 0.19 [facility] Office Visiton 05-05-2024 Follow-up visit [id number] Mna Patel 1950 M Date Provider Department Center 05/05/2024 CYNTHIA WILLIAMSON [facility] Family History Problem Relation Age of Onset Coronary artery disease Mother Hyperlipidemia Mother Hypertension Mother Stroke Mother Diabetes Mother Coronary artery disease Father Hyperlipidemia Father Hypertension Father Family Status - Relation Status Age at Mother Father Level of Service:28046 [place] OFFICE/OUTPATIENT ESTABLISHED MOD MDM 30 MIN Reason for Visit and Comments: Congestive Heart Failure [127] Coronary Artery Disease [187] Normal [facility] Basophils Auto (Bld) [#/Vol] on 04-30-2024 Basophils (Bld) [#/Vol] 0.1 10 3/uL 0.0-0.1 [facility] Basophils/100 WBC Auto (Bld) on 04-30-2024 Basophils/100 WBC (Bld) 0.8 % 0.2-2.0 [facility] Cholesterol in LDL Calc [Mas s/Vol]on 04-30-2024 Cholesterol in LDL [Mass/Vol] 35.0 mg/dL [facility] Comment on above: <100 mg/dl [id number] 0-129 mg/dl NEAR OR ABOVE [id number] mg/dl BORDERLINE [id number] mg/dl HIGH>190 mg/dl VERY HIGH Cholesterol in VLDL Calc [Ma ss/Vol]on 04-30-2024 Cholesterol in VLDL [Mass/Vol] 8.0 mg/dL [facility] Eosinophils/100 WBC Auto (Bl d)on 04-30-2024 Eosinophils/100 WBC (Bld) 8.4 % High 0.9-7.0 [facility] Erythrocyte distribution wid th Auto (RBC) [Ratio]on 04-30-2024 Erythrocyte distribution width (RBC) [Ratio] 15.3 % High 11.0-15.0 [facility] Estimated glomerular filtrat ion rate (GFR) non- Americanon 04-30-2024 GFR/1.73 sq M.predicted among non-blacks MDRD (S/P/Bld) [Vol rate/Area] 26 mL/min/{1.73_m2} Low >=60 [facility] Globulin Calc (S) [Mass/Vol] on 04-30-2024 Globulin (S) [Mass/Vol] 3.6 g/dL [facility] Hematocrit Auto (Bld) [Volum e fraction]on 04-30-2024 Hematocrit (Bld) [Volume fraction] 45.6 % 42.0-54.0 [facility] Hemoglobin [Mass/volume] in Bloodon 04-30-2024 Hemoglobin (Bld) [Mass/Vol] 14.7 g/dL 14.0-18.0 [facility] - Chemistry and C hemistry - challengeon 04-30-2024 Albumin [Mass/Vol] 3.6 g/dL 3.4-5.0 [facility] ALP [Catalytic activity/Vol] 110 U/L 46-116 [facility] ALT [Catalytic activity/Vol] 19 U/L 16-63 [facility] AST [Catalytic activity/Vol] 19 U/L 15-37 [facility] Bilirubin [Mass/Vol] 1.2 mg/dL High 0.2-1.0 [facility] Calcium [Mass/Vol] 9.2 mg/dL 8.5-10.1 [facility] Chloride [Moles/Vol] 100 mmol/L 98-107 [facility] Cholesterol [Mass/Vol] 101 mg/dL <=200 [facility] Cholesterol in HDL [Mass/Vol] 58 mg/dL 40-60 [facility] Comment on above: > or =60 mg/dl - LOW CARDIOVASCULAR RISK<40 mg/dl - HIGH CARDIOVASCULAR RISK CO2 [Moles/Vol] 27.5 mmol/L 21.0-32.0 [facility] Creatinine [Mass/Vol] 2.45 mg/dL High 0.70-1.30 [facility] Free T4 [Mass/Vol] 1.26 ng/dL 0.76-1.46 [facility] GFR/1.73 sq M.predicted MDRD (S/P/Bld) [Vol rate/Area] 32 mL/min/{1.73_m2} Low >=60 [facility] Glucose [Mass/Vol] 122 mg/dL High 74-106 [facility] Potassium [Moles/Vol] 4.1 mmol/L 3.5-5.1 [facility] Protein [Mass/Vol] 7.2 g/dL 6.4-8.2 [facility] Sodium [Moles/Vol] 137 mmol/L 136-145 [facility] Triglyceride [Mass/Vol] 40 mg/dL <=150 [facility] TSH Qn 2.710 m[IU]/L 0.358-3.740 [facility] Urea nitrogen [Mass/Vol] 53.0 mg/dL High 7.0-18.0 [facility] Urea nitrogen/Creatinine [Mass ratio] 21.6 mg/mg [facility] - Hematology and Cell countson 04-30-2024 Immature granulocytes/100 WBC (Bld) 0.6 % High 0.0-0.5 [facility] Leukocytes [#/volume] correc chester for nucleated erythrocytes in Blood by Automated counon 04-30-2024 WBC corrected for nucl RBC Auto (Bld) [#/Vol] 7.2 10 3/uL 4.0-11.0 [facility] Lymphocytes Auto (Bld) [#/Vo l]on 04-30-2024 Lymphocytes (Bld) [#/Vol] 0.7 10 3/uL Low 1.2-3.8 [facility] Lymphocytes/100 WBC Auto (Bl d)on 04-30-2024 Lymphocytes/100 WBC (Bld) 9.7 % Low 20.5-60.0 [facility] MCH Auto (RBC) [Entitic mass ]on 04-30-2024 MCH (RBC) [Entitic mass] 30.0 pg 25.9-34.0 [facility] MCHC Auto (RBC) [Mass/Vol]on 04-30-2024 MCHC (RBC) [Mass/Vol] 32.2 g/dL 29.9-35.2 [facility] MCV Auto (RBC) [Entitic vol] on 04-30-2024 MCV (RBC) [Entitic vol] 93.1 fL 80.0-94.0 [facility] Monocytes Auto (Bld) [#/Vol] on 04-30-2024 Monocytes (Bld) [#/Vol] 0.6 10 3/uL 0.3-0.8 [facility] Monocytes/100 WBC Auto (Bld) on 04-30-2024 Monocytes/100 WBC (Bld) 8.2 % 1.7-12.0 [facility] Neutrophils Auto (Bld) [#/Vo l]on 04-30-2024 Neutrophils (Bld) [#/Vol] 5.2 10 3/uL 1.4-6.5 [facility] Neutrophils/100 WBC Auto (Bl d)on 04-30-2024 Neutrophils/100 WBC (Bld) 72.3 % 43.0-75.0 [facility] No Panel Informationon 04-30 Eosinophils # (Auto) 0.6 10 3/uL 0.0-0.7 [facility] Immature Granulocyte # (Auto) 0.04 10 3/uL High 0.00-0.03 [facility] Platelet mean volume Auto (B ld) [Entitic vol]on 04-30-2024 Platelet mean volume (Bld) [Entitic vol] 10.7 fL 9.5-13.5 [facility] Platelets Auto (Bld) [#/Vol] on 04-30-2024 Platelets (Bld) [#/Vol] 171 10 3/uL 150-450 [facility] RBC Auto (Bld) [#/Vol]on RBC (Bld) [#/Vol] 4.90 10 6/uL 4.70-6.10 [facility] Serum or plasma albumin/glob ulin mass ratioon 04-30-2024 Albumin/Globulin [Mass ratio] 1.0 {ratio} [facility] Serum or plasma anion gap de terminationon 04-30-2024 Anion gap [Moles/Vol] 13.6 mmol/L [facility] Serum or plasma total choles terol/high density lipoprotein (HDL) cholesterol mass ralf 04-30-2024 Cholesterol.total/Chol esterol in HDL [Mass ratio] 1.7 {ratio} [facility] Comment on above: 3.3 - 4.4 LOW RISK4. 4 - 7.1 AVERAGE RISK7.1 - 11.0 MODERATE RISK>11.0 HIGH RISK 36on 04-26-2024 36 Spoke with patient's last week and made her aware that [facility] would be calling to schedule this echo w/ [facility]. [facility] 36on 04-13-2024 36 Regarding echo resul t from 04/06/2024: MD Key Mao MA He needs a limited echo for LVEF with echocontrast (at [facility]). If the EF is reduced then he needs upgrade of his pacer to [employer]/D. Can this be done at [facility] with Mallory? I already know he's not going to be keen on driving to [place]. But if you insist, I will make him aware of the need to go to [facility]. Just thought I'd ask. [facility] 36on 02-12-[address] Simpson wanted pinky ortiz to have echo s/p device check on 01/27/2024. He is due for echo prior to his Apr [address] Cintron. [facility] Erythrocyte distribution wid th Auto (RBC) [Ratio]on 12-17-2023 Erythrocyte distribution width (RBC) [Ratio] 15.6 % 11.0-15.0 [facility] Estimated glomerular filtrat ion rate (GFR) non- Americanon 12-17-2023 GFR/1.73 sq M.predicted among non-blacks MDRD (S/P/Bld) [Vol rate/Area] 22 mL/min/{1.73_m2} >=60 [facility] Globulin Calc (S) [Mass/Vol] on 12-17-2023 Globulin (S) [Mass/Vol] 4.2 g/dL [facility] Hematocrit Auto (Bld) [Volum e fraction]on 12-17-2023 Hematocrit (Bld) [Volume fraction] 46.1 % 42.0-54.0 [facility] Hemoglobin [Mass/volume] in Bloodon 12-17-2023 Hemoglobin (Bld) [Mass/Vol] 14.9 g/dL 14.0-18.0 [facility] Laboratory - Chemistry and C hemistry - challengeon 12-17-2023 Albumin [Mass/Vol] 3.9 g/dL 3.4-5.0 [facility] ALP [Catalytic activity/Vol] 131 U/L 46-116 [facility] ALT [Catalytic activity/Vol] 21 U/L 16-63 [facility] AST [Catalytic activity/Vol] 20 U/L 15-37 [facility] Bilirubin [Mass/Vol] 1.1 mg/dL 0.2-1.0 [facility] Calcium [Mass/Vol] 9.5 mg/dL 8.5-10.1 [facility] Chloride [Moles/Vol] 100 mmol/L 98-107 [facility] CO2 [Moles/Vol] 26.5 mmol/L 21.0-32.0 [facility] Creatinine [Mass/Vol] 2.90 mg/dL 0.70-1.30 [facility] GFR/1.73 sq M.predicted MDRD (S/P/Bld) [Vol rate/Area] 26 mL/min/{1.73_m2} >=60 [facility] Glucose [Mass/Vol] 112 mg/dL 74-106 [facility] Magnesium [Mass/Vol] 2.9 mg/dL 1.8-2.4 [facility] Potassium [Moles/Vol] 4.4 mmol/L 3.5-5.1 [facility] Protein [Mass/Vol] 8.1 g/dL 6.4-8.2 [facility] Sodium [Moles/Vol] 139 mmol/L 136-145 [facility] Urate [Mass/Vol] 7.8 mg/dL 3.5-7.2 [facility] Urea nitrogen [Mass/Vol] 64.0 mg/dL 7.0-18.0 [facility] Urea nitrogen/Creatinine [Mass ratio] 22.1 mg/mg [facility] Leukocytes [#/volume] correc chester for nucleated erythrocytes in Blood by Automated counon 12-17-2023 WBC corrected for nucl RBC Auto (Bld) [#/Vol] 7.3 10 3/uL 4.0-11.0 [facility] MCH Auto (RBC) [Entitic mass ]on 12-17-2023 MCH (RBC) [Entitic mass] 29.6 pg 25.9-34.0 [facility] MCHC Auto (RBC) [Mass/Vol]on 12-17-2023 MCHC (RBC) [Mass/Vol] 32.3 g/dL 29.9-35.2 [facility] MCV Auto (RBC) [Entitic vol] on 12-17-2023 MCV (RBC) [Entitic vol] 91.5 fL 80.0-94.0 [facility] No Panel Informationon 12-16 25-Hydroxy Vitamin D Total 27.7 ng/mL [facility] Comment on above: <20 ng/mL Vit D defi cient20-<30 ng/mL Vit D twpxbqvrwoiz39-166 ng/mL Vit D sufficient>100 ng/mL Potential Toxicity Miscellaneous Test COMMENT . [facility] Comment on above: Test Ordered: [id number] Prot+CreatU (Random)Creatinine, Urine 15.1 mg/dL CB Reference Range: Not Estab.Protein,Total,Urine <4.0 mg/dL CB Reference Range: Not Estab.Verified by repeat analysisProtein/Creat Ratio Comment [A ] CB Units of Measure: mg/g creat Reference Range: 0-200This result is below the assay's limit of quantitationindicating a dilute specimen, potentially due to diurnalvariation. Consider recollection at a time likely toprovide a more concentrated urine.Performed at: CB - [facility] [address] [id number] Director: New Vega PhD, Phone: [phone] Parathyroid Hormone (Intact) 140 pg/mL [facility] Comment on above: Performed at: [facility] [address] [id number] Director: New Vega PhD, Phone: [phone] Phosphorus Level 3.7 mg/dL 2.6-4.7 [facility] Platelet mean volume Auto (B ld) [Entitic vol]on 12-17-2023 Platelet mean volume (Bld) [Entitic vol] 10.8 fL 9.5-13.5 [facility] Platelets Auto (Bld) [#/Vol] on 12-17-2023 Platelets (Bld) [#/Vol] 195 10 3/uL 150-450 [facility] RBC Auto (Bld) [#/Vol]on RBC (Bld) [#/Vol] 5.04 10 6/uL 4.70-6.10 [facility] Serum or plasma albumin/glob ulin mass ratioon 12-17-2023 Albumin/Globulin [Mass ratio] 0.9 {ratio} [facility] Serum or plasma anion gap de terminationon 12-17-2023 Anion gap [Moles/Vol] 16.9 mmol/L [facility] Office Visiton 10-20-2023 Follow-up visit [id number] Man Patel 1950 M Date Provider Department Center 10/20/[address] [facility] Family History Problem Relation Age of Onset Coronary artery disease Mother Hyperlipidemia Mother Hypertension Mother Stroke Mother Diabetes Mother Coronary artery disease Father Hyperlipidemia Father Hypertension Father Family Status - Relation Status Age at Mother Father Level of Service:73862 [place] OFFICE/OUTPATIENT ESTABLISHED LOW MDM 20 MIN Normal [facility] PTH INTACTon 12-04-2022 PTH, Intact 66 pg/mL Critically high [facility] Comment on above: Performed By: #### P THINT ####[facility] [address] [place], [place] [address]Dr. Elba Anthony HEMOGRAM AND PLATELon 2022 Hematocrit (Bld) [Volume fraction] 43.4 % Normal 42.0-54.[address] [facility] Comment on above: Performed By: #### H H ####[facility] [address] [place], [place] [address]Dr. Elba Anthony Hemoglobin (Bld) [Mass/Vol] 14.1 g/dL Normal 14.0-18.0 [facility] Comment on above: Performed By: #### H H ####[facility] [address] [place], [place] [address]Dr. Nereydasiobhan Anthony MCH (RBC) [Entitic mass] 28.2 pg Normal 25.9-34.0 [facility] Comment on above: Performed By: #### H H ####[facility] [address] [place], [place] [address]Dr. Nereydasiobhan Anthony MCHC (RBC) [Mass/Vol] 32.5 g/dL Normal 29.9-35.2 [facility] Comment on above: Performed By: #### H H ####[facility] [address] [place], [place] [address]Dr. Elba Anthony MCV (RBC) [Entitic vol] 86.8 fL Normal 80.0-94.0 [facility] Comment on above: Performed By: #### H H ####[facility] [address] [place], [place] [address]Dr. Elba Anthony PLT 170 103/ul Normal 150-450 [facility] Comment on above: Performed By: #### H H ####[facility] [address] [place], [place] [address]Dr. Elba Anthony RBC 5.00 106/ul Normal 4.70-6.10 [facility] Comment on above: Performed By: #### H H ####[facility] [address] [place], [place] [address]Dr. Elba Anthony WBC 7.2 103/ul Normal 4.0-11.0 [facility] Comment on above: Performed By: #### H H ####[facility] [address] [address]Dr. Elba Anthony MAGNESIUMon 12-03-2022 Magnesium [Mass/Vol] 2.6 mg/dL Critically high 1.8-2.4 [facility] [facility] Comment on above: Performed By: #### C MP, URIC, PHOS, MG ####[facility] [address] [place] [address]Dr. Elba Anthony PHOSPHORUSon 12-03-2022 Phosphate [Mass/Vol] 3.9 mg/dL Normal 2.6-4.7 [facility] Comment on above: Performed By: #### C MP, URIC, PHOS, MG ####[facility] Eooadceqwa[address] [place] [address]Dr. Elba Anthony PROF 14(COMP METB)on 023 Albumin [Mass/Vol] 4.0 g/dL Normal 3.4-5.0 [facility] Comment on above: Performed By: #### C MP, URIC, PHOS, MG ####[facility] Tleondggjj[address] [place], [place] [address]Dr. Elba Anthony Albumin/Globulin [Mass ratio] 0.9 {ratio} Normal The [facility] Comment on above: Performed By: #### C MP, URIC, PHOS, MG ####[facility] Qdegtqmqcx[address] [place] [address]Dr. Elba Antohny ALP [Catalytic activity/Vol] 159 U/L Critically high 46-116 [facility] Comment on above: Performed By: #### C MP, URIC, PHOS, MG ####[facility] Jq[address]aknyn[address] [place] [address]Dr. Elba Anthony ALT [Catalytic activity/Vol] 33 U/L Normal 16-63 [facility] Comment on above: Performed By: #### C MP, URIC, PHOS, MG ####[facility] Gxkctendmk[address] [place] [address]Dr. Elba Anthony Anion gap [Moles/Vol] 15.2 mmol/L Normal Th e [facility] Comment on above: Performed By: #### C MP, URIC, PHOS, MG ####[facility] Ry[address]twbflz[address] [place] [address]Dr. Elba Anthony AST [Catalytic activity/Vol] 27 U/L Normal 15-37 [facility] Comment on above: Performed By: #### C MP, URIC, PHOS, MG ####[facility] Nrsvktomrf[address] [place] [address]Dr. Elba Anthony Bilirubin [Mass/Vol] 0.9 mg/dL Normal 0.2-1.0 [facility] Comment on above: Performed By: #### C MP, URIC, PHOS, MG ####[facility] [address]ouerqqgjo[address] [place] [address]Dr. Elba Anthony Calcium [Mass/Vol] 9.8 mg/dL Normal 8.5-10.1 [facility] Comment on above: Performed By: #### C MP, URIC, PHOS, MG ####[facility] Izmadjnsxl[address] [place] [address]Dr. Elba Anthony Chloride [Moles/Vol] 102 mmol/L Normal 98-107 [facility] Comment on above: Performed By: #### C MP, URIC, PHOS, MG ####[facility] Rmdejkejrj[address] [place] [address]Dr. Elba Anthony CO2 [Moles/Vol] 30.5 mmol/L Normal 21.0-32.0 [facility] Comment on above: Performed By: #### C MP, URIC, PHOS, MG ####[facility] Apnkkzwqss[address] [place] [address]Dr. Elba Anthony Creatinine [Mass/Vol] 2.63 mg/dL Critically high 0.70-1.30 [facility] Comment on above: Performed By: #### C MP, URIC, PHOS, MG ####[facility] Ecwmzcdnsh[address] [place] [address]Dr. Elba Anthony EGFR-AF SAUDI ARABIAN 29 mL/min/1.73m2 Critically low >=60 The [facility] Comment on above: Performed By: #### C MP, URIC, PHOS, MG ####[facility] F[address]abqursr[address] [place] [address]Dr. Elba Anthony EGFR-NON AF SAUDI ARABIAN 24 mL/min/1.73m2 Critically low >=[address] [facility] Comment on above: Performed By: #### C MP, URIC, PHOS, MG ####[facility] Vrbtfjosdl[address] [place] [address]Dr. Elba Anthony Globulin (S) [Mass/Vol] 4.5 g/dL Normal [facility] Comment on above: Performed By: #### C MP, URIC, PHOS, MG ####[facility] Scszdqmxel[address] [place] [address]Dr. Elba Anthony Glucose [Mass/Vol] 122 mg/dL Critically high 74-106 [facility] Comment on above: Performed By: #### C MP, URIC, PHOS, MG ####[facility] Wcuolimscq65[address] [place] [address]Dr. Elba Anthony Potassium [Moles/Vol] 4.7 mmol/L Normal 3.5-5.[address] [facility] Comment on above: Performed By: #### C MP, URIC, PHOS, MG ####[facility] Glasfvvjpf[address] [place] [address]Dr. Elba Anthony Protein [Mass/Vol] 8.5 g/dL Critically high 6.4-8.2 [facility] Comment on above: Performed By: #### C MP, URIC, PHOS, MG ####[facility] Xvadaawpdi[address] [place] [address]Dr. Elba Anthony Sodium [Moles/Vol] 143 mmol/L Normal 136-[address] [facility] Comment on above: Performed By: #### C MP, URIC, PHOS, MG ####[facility] Vtnsntuhvu[address] [place] [address]Dr. Elba Anthony Urea nitrogen [Mass/Vol] 59.0 mg/dL Critically high 7.0-18.[address] [facility] Comment on above: Performed By: #### C MP, URIC, PHOS, MG ####[facility] Oqugtqlnib[address] [place], [place] [address]Dr. Elba Anthony Urea nitrogen/Creatinine [Mass ratio] 22.4 mg/mg Normal The [facility] Comment on above: Performed By: #### C MP, URIC, PHOS, MG ####[facility] Awyddezroz[address] [place], [place] [address]Dr. Elba Anthony UA RANDOMon 12-03-2022 Bilirubin Ql (U) Negative Normal NEGATIVE The [facility] Comment on above: Performed By: #### U A ####[facility] Arldrdqfxm[address] [place], [place] [address]Dr. Elba Anthony Clarity (U) CLEAR Normal CLEAR [facility] Comment on above: Performed By: #### U A ####[facility] Dhczsuysij[address] [place], [place] [address]Dr. Elba Anthony Color (U) LT. YELLOW Normal YELLOW [facility] Comment on above: Performed By: #### U A ####[facility] Fkrgwzgymb[address] [place], [place] [address]Dr. Elba Anthony Glucose Ql (U) Negative Normal NEGATIVE [facility] Comment on above: Performed By: #### U A ####[facility] Bciygsccpf[address] [place], [place] [address]Dr. Elba Anthony Hemoglobin Ql (U) Negative Normal NEGATIVE [facility] Comment on above: Performed By: #### U A ####[facility] Iejpfsazrp76[address] [place], [place] [address]Dr. Elba Anthony Ketones Ql (U) Negative Normal NEGATIVE [facility] Comment on above: Performed By: #### U A ####[facility] Dtblofqfaf8[address] [place], [place] [address]Dr. Elba Anthony LEUKOCYTES Negative Normal NEGATIVE The [facility] Comment on above: Performed By: #### U A ####[facility] Iqzeasouob[address] [place], [place] [address]Dr. Nereydalan Anthony Nitrite Ql (U) Negative Normal NEGATIVE The [facility] Comment on above: Performed By: #### U A ####[facility] [address]whc[address] [place] [id number]. Elba Anthony pH (U) 7.0 [pH] Normal 5-9 [facility] Comment on above: Performed By: #### U A ####[facility] Ylcthldowy[address] [place] [address]Dr. Elba Anthony SPEC GRAVITY <=1.005 Abnormal 1.005-<=1.02 5 [facility] Comment on above: Performed By: #### U A ####[facility] Zsdwveenvm[address] [place], [place] [address]Dr. Elba Anthony UA PROTEIN TRACE Normal NEGATIVE/ TRACE The [facility] Comment on above: Performed By: #### U A ####[facility] F[address]jevyuhjv[address] [place], [place] [address]Dr. Elba Anthony Urobilinogen Qn (U) 2.0 {Caden'U}/dL Abnormal 0.2 - 1. 0 [facility] Comment on above: Performed By: #### U A ####[facility] Roubefuklx[address] [place], [place] [address]Dr. Elba Anthony URIC ACID SERUMon 12-03-2022 Urate [Mass/Vol] 9.0 mg/dL Critically high 3.5-7.2 The [facility] Comment on above: Performed By: #### C MP, URIC, PHOS, MG ####[facility] Esehwrlumi97[address] [place], [place] [address]Dr. Nereydasiobhan Raj URINE T PROTEIN CREAT RATIOo n 12-03-2022 Protein (U) [Mass/Vol] 26.9 mg/dL Critically high <=12.0 The [facility] Comment on above: Performed By: #### U RTPCR ####[facility] Cpbhbakzlq[address] [place], [place] [address]Dr. Elba Anthony UR PROT CREAT RAT 0.33 Normal The [facility] Comment on above: Performed By: #### U RTPCR ####[facility] Rblqzrivpg63[address] [place], [place] [address]Dr. Elba Anthony URINE CREAT 82.74 mg/dL Normal 20.00-300.00 [facility] Comment on above: Performed By: #### U RTPCR ####[facility] Ikbarifcgp[address] [place] [address]Dr. Nereydasiobhan Raj VITAMIN D 25 OHon 12-03-2022 VIT D 25-OH 14.7 ng/mL Normal [facility] Comment on above: Performed By: #### V ITAD ####[facility] Zosvwknfym[address] [place] [address]Dr. Elba Anthony VIT D RANGES SEE BELOW Normal [facility] Comment on above: Result Comment: <20 ng/mL Vit D deficient 20 - <30 ng/mL Vit D insufficient 30 - 100 ng/mL Vit D sufficient >100 ng/mL Potential Toxicity Performed By: #### V ITAD ####[facility] [address]axxbtgk[address] [place], [place] [address]Dr. Elba Anthony US KIDNEYSon 11-27-2022 US KIDNEYS Normal [facility] PROF CHEM 8 (BAS METB)on Anion gap [Moles/Vol] 11.1 mmol/L Normal [facility] Comment on above: Performed By: #### B MP ####[facility] Mahqqqsyxs[address] [place], [place] [address]Dr. Elba Anthony Calcium [Mass/Vol] 9.0 mg/dL Normal 8.5-10.1 [facility] Comment on above: Performed By: #### B MP ####[facility] Inyhihlhks[address] [place] [address]Dr. Elba Anthony Chloride [Moles/Vol] 99 mmol/L Normal 98-107 [facility] Comment on above: Performed By: #### B MP ####[facility] Mkfizlxany[address] [place] [id number]. Elba Anthony CO2 [Moles/Vol] 30.3 mmol/L Normal 21.0-32.[address] [facility] Comment on above: Performed By: #### B MP ####[facility] Txgpqiqyxb8396 [place] [id number]. Elba Anthony Creatinine [Mass/Vol] 2.43 mg/dL Critically high 0.70-1.30 [facility] Comment on above: Performed By: #### B MP ####[facility] Zeadriejzb[address] [place] [id number]. Nereydasiobhan Raj EGFR-AF SAUDI ARABIAN 32 mL/min/1.73m2 Critically low >=[address] [facility] Comment on above: Performed By: #### B MP ####[facility] Eavjeqnmbk56[address] [place] [id number]. Elba Raj EGFR-NON AF SAUDI ARABIAN 27 mL/min/1.73m2 Critically low >=[address] [facility] Comment on above: Performed By: #### B MP ####[facility] Duefmwrdfd6097 [place] [id number]. Elba Anthony Glucose [Mass/Vol] 142 mg/dL Critically high 74-106 T [facility] Comment on above: Performed By: #### B MP ####[facility] Tbmeyjjuvs[address] [place] [address]Dr. Elba Anthony Potassium [Moles/Vol] 4.4 mmol/L Normal 3.5-5.[address] [facility] Comment on above: Performed By: #### B MP ####[facility] Mwbjnawccl[address] [place], [place] [address]Dr. Elba Anthony Sodium [Moles/Vol] 136 mmol/L Normal 136-[address] [facility] Comment on above: Performed By: #### B MP ####[facility] Eiulxorfmv6302 [place] [id number]. Elba Anthony Urea nitrogen [Mass/Vol] 60.0 mg/dL Critically high 7.0-18.[address] [facility] Comment on above: Performed By: #### B MP ####[facility] Dsttwywmuw9[address] [place] [id number]. Elba Anthony Urea nitrogen/Creatinine [Mass ratio] 24.7 mg/mg Normal [facility] Comment on above: Performed By: #### B MP ####[facility] Xcawqrpvdn[address] [place] [id number]. Elba Anthony CBC AUTO DIFFon 07-11-2022 BASO # 0.1 103/ul Normal 0.0-0.[address] [facility] Comment on above: Performed By: #### C BC ####[facility] Nokdtekvup[address] [place], [place] [address]DrLatoya Anthony Basophils/100 WBC (Bld) 0.8 % Normal 0.2-2.0 [facility] Comment on above: Performed By: #### C BC ####[facility] Gfikcogjtv8[address] [place], [place] [address]DrLatoya Anthony EO # 0.9 103/ul Critically high 0.0-0.7 [facility] Comment on above: Performed By: #### C BC ####[facility] Ibislfzrzu[address] [place], [place] [address]DrLatoya Anthony Eosinophils/100 WBC (Bld) 13.7 % Critically high 0.9-7.[address] [facility] Comment on above: Performed By: #### C BC ####[facility] Sowgttdmze54[address] [place], [place] [address]DrLatoya Anthony Erythrocyte distribution width (RBC) [Ratio] 20.8 % Critically high 11.0-15.0 [facility] Comment on above: Performed By: #### C BC ####[facility] Chfqxcdhdw[address] [place], [place] [address]DrLatoya Anthony Hematocrit (Bld) [Volume fraction] 35.3 % Critically low 42.0-54.[address] [facility] Comment on above: Performed By: #### C BC ####[facility] Kljzzdeolg[address] [place], [place] [address]DrLatoya Anthony Hemoglobin (Bld) [Mass/Vol] 11.5 g/dL Critically low 14.0-18.0 [facility] Comment on above: Performed By: #### C BC ####[facility] Hgtgbaywjf[address] [place], [place] [address]DrLatoya Anthony IG # 0.04 10e3/ul Critically high 0.00-0.03 [facility] Comment on above: Performed By: #### C BC ####[facility] Mgdhcqkfzo[address] [place], [place] [address]Dr. Elba Anthony IG % 0.6 % Critically high 0.0-0.[address] [facility] Comment on above: Performed By: #### C BC ####[facility] Nszrsxbclo[address] [place] [address]DrLatoya Anthoyn LYMPH # 1.1 103/ul Critically low 1.2-3.[address] [facility] Comment on above: Performed By: #### C BC ####[facility] Nflewrrkfv5[address] [place] [address]DrLatoya Anthony Lymphocytes/100 WBC (Bld) 17.2 % Critically low 20.5-60.0 [facility] Comment on above: Performed By: #### C BC ####[facility] Juesxxnxhr45[address] [place], [place] [address]DrLatoya Anthony MANUAL DIFF REQ NO Normal [facility] Comment on above: Performed By: #### C BC ####[facility] Twmuihrxdv22[address] [place] [address]DrLatoya Anthony MCH (RBC) [Entitic mass] 27.9 pg Normal 25.9-34.0 [facility] Comment on above: Performed By: #### C BC ####[facility] Lafcsibypw[address] [place], [place] [address]DrLatoya Anthony MCHC (RBC) [Mass/Vol] 32.6 g/dL Normal 29.9-35.2 [facility] Comment on above: Performed By: #### C BC ####[facility] Owaslzqhmv[address] [place], [place] [address]DrLatoya Anthony MCV (RBC) [Entitic vol] 85.7 fL Normal 80.0-94.0 [facility] Comment on above: Performed By: #### C BC ####[facility] Jmdkeqiwjn[address] [place], [place] [address]DrLatoya Anthony MONO # 0.8 103/ul Normal 0.3-0.8 [facility] Comment on above: Performed By: #### C BC ####[facility] Fzhmusjizj[address] [place], [place] [address]DrLatoya Anthony Monocytes/100 WBC (Bld) 13.0 % Critically high 1.7-12.[address] [facility] Comment on above: Performed By: #### C BC ####[facility] Wlqbzzupjc[address] [place] [address]Dr. Elba Antohny NEUT # 3.4 103/ul Normal 1.4-6.[address] [facility] Comment on above: Performed By: #### C BC ####[facility] Tiixwuslnm[address] [place], [place] [address]Dr. Elba Anthony Neutrophils/100 WBC (Bld) 54.7 % Normal 43.0-75.[address] [facility] Comment on above: Performed By: #### C BC ####[facility] Rhupwaomjc8[address] [place], [place] [address]Dr. Elba Anthony Platelet mean volume (Bld) [Entitic vol] 9.5 fL Normal 9.5-13.[address] [facility] Comment on above: Performed By: #### C BC ####[facility] Tndqffuzgg[address] [place], [place] [address]Dr. Elba Anthony PLT 206 103/ul Normal 150-[address] [facility] Comment on above: Performed By: #### C BC ####[facility] Ocdmxhuzut[address] [place], [place] [address]Dr. Elba Anthony RBC 4.12 106/ul Critically low 4.70-6.10 [facility] Comment on above: Performed By: #### C BC ####[facility] Degyhyseqh[address] [place], [place] [address]DrLatoya Anthony WBC 6.2 103/ul Normal 4.0-11.0 [facility] Comment on above: Performed By: #### C BC ####[facility] Suaeqfuynj[address] [place], [place] [address]DrLatoya Anthony PROF CHEM 8 (BAS METB)on Anion gap [Moles/Vol] 10.9 mmol/L Normal Th [facility] Comment on above: Performed By: #### B MP ####[facility] Feyrnplsda[address] [place], [place] [address]DrLatoya Anthony Calcium [Mass/Vol] 8.9 mg/dL Normal 8.5-10.1 [facility] Comment on above: Performed By: #### B MP ####[facility] Tekwdehndm[address] [place], [place] [address]Dr. Elba Anthony Chloride [Moles/Vol] 103 mmol/L Normal 98-107 [facility] Comment on above: Performed By: #### B MP ####[facility] Alqfoqaovt[address] [place], [place] [address]Dr. Elba Raj CO2 [Moles/Vol] 31.0 mmol/L Normal 21.0-32.0 [facility] Comment on above: Performed By: #### B MP ####[facility] Rqdgkdkjnk[address] [place], [place] [address]Dr. Elba Raj Creatinine [Mass/Vol] 2.18 mg/dL Critically high 0.70-1.30 [facility] Comment on above: Performed By: #### B MP ####[facility] Vqfvtgohbe[address] [place], [place] [address]Dr. Elba Raj EGFR-AF SAUDI ARABIAN 36 mL/min/1.73m2 Critically low >=60 [facility] Comment on above: Performed By: #### B MP ####[facility] Yrooynbarf[address] [place], [place] [address]Dr. Elba Raj EGFR-NON AF SAUDI ARABIAN 30 mL/min/1.73m2 Critically low >=60 [facility] Comment on above: Performed By: #### B MP ####[facility] Tqsrbispcm[address] [place], [place] [address]Dr. Elba Raj Glucose [Mass/Vol] 99 mg/dL Normal 74-106 [facility] Comment on above: Performed By: #### B MP ####[facility] Zdutstrhxq[address] [place], [place] [address]Dr. Elba Raj Potassium [Moles/Vol] 3.9 mmol/L Normal 3.5-5.1 [facility] Comment on above: Performed By: #### B MP ####[facility] Bvbmxslktz[address] [place], [place] [address]Dr. Elba Raj Sodium [Moles/Vol] 141 mmol/L Normal 136-145 [facility] Comment on above: Performed By: #### B MP ####[facility] Fdpyvpejtg[address] [place] [address]Dr. Elba Anthony Urea nitrogen [Mass/Vol] 40.0 mg/dL Critically high 7.0-18.0 [facility] Comment on above: Performed By: #### B MP ####[facility] Vrmhgzjowa[address] [place] [address]Dr. Elba Raj Urea nitrogen/Creatinine [Mass ratio] 18.3 mg/mg Normal [facility] Comment on above: Performed By: #### B MP ####[facility] Eobpurfvrj6[address] [place], [place] [address]Dr. Elba Raj XR CHEST 2 Von 07-11-2022 XR CHEST 2 V Normal [facility] BNPon 07-10-2022 Natriuretic peptide B (Bld) [Mass/Vol] 2542.0 pg/mL Critically high <=900.0 [facility] Comment on above: Performed By: #### H STROPN, BNP, CMP ####[facility] Ztqfjqopww[address] [place] [address]Dr. Elba Raj CARDIAC FADY 3-6on 2 CK [Catalytic activity/Vol] 40 U/L Normal 39-308 [facility] Comment on above: Performed By: #### C MREP ####[facility] Hgrvkjoawa[address] [place] [address]Dr. Elba Raj CK.MB [Mass/Vol] 0.92 ng/mL Normal <=3.60 [facility] Comment on above: Performed By: #### C MREP ####[facility] Pfe[address]biyy[address] [place], [place] [address]Dr. Elba Raj HSTROP 49.6 pg/mL Normal 4.0-76.1 [facility] Comment on above: Result Comment: CUT- OFF POINTS HAVE BEEN ESTABLISHED BASED ON THE FOURTH UNIVERSAL DEFINITIONS OF MYOCARDIALINFARCTION. THE UPPER REFERENCE LIMIT (URL) OF TROPONIN, DEFINED THE 99TH PERCENTILE OFcTnI DISTRIBUTION IN A REFERENCE POPULATION, HAS BEEN CONFIRMED THE DECISION THRESHOLDFOR SD DIAGNOSIS. Performed By: #### C MREP ####[facility] [address]qzlyv[address] [place] [address]Dr. Elba Raj CK [Catalytic activity/Vol] 39 U/L Normal 39-308 [facility] Comment on above: Performed By: #### C MREP ####[facility] [address] [place] [id number]. Elba Anthony CK.MB [Mass/Vol] 0.76 ng/mL Normal <=3.60 [facility] Comment on above: Performed By: #### C MREP ####[facility] Ebmperpk[address] [place], [place] [address]Dr. Nereydasiobhan Anthony HSTROP 47.3 pg/mL Normal 4.0-76.1 [facility] Comment on above: Result Comment: CUT- OFF POINTS HAVE BEEN ESTABLISHED BASED ON THE FOURTH UNIVERSAL DEFINITIONS OF MYOCARDIALINFARCTION. THE UPPER REFERENCE LIMIT (URL) OF TROPONIN, DEFINED THE 99TH PERCENTILE OFcTnI DISTRIBUTION IN A REFERENCE POPULATION, HAS BEEN CONFIRMED THE DECISION THRESHOLDFOR SD DIAGNOSIS. Performed By: #### C MREP ####[facility] [address]rx[address] [place] [address]Dr. Nereydasiobhan Anthony CBC AUTO DIFFon 07-10-2022 BASO # 0.1 103/ul Normal 0.0-0.[address] [facility] Comment on above: Performed By: #### C BC ####[facility] [address] [place] [address]Dr. Elba Anthony Basophils/100 WBC (Bld) 1.1 % Normal 0.2-2.0 [facility] Comment on above: Performed By: #### C BC ####[facility] Mzsfbmgetj[address] [place] [address]Dr. Elba Anthony EO # 0.6 103/ul Normal 0.0-0.7 [facility] Comment on above: Performed By: #### C BC ####[facility] Rmjrvzixcj[address] [place] [address]Dr. Elba Anthony Eosinophils/100 WBC (Bld) 8.9 % Critically high 0.9-7.0 [facility] Comment on above: Performed By: #### C BC ####[facility] Eeyevgbceq[address] [place], [place] [address]DrLatoya Anthony Erythrocyte distribution width (RBC) [Ratio] 21.1 % Critically high 11.0-15.[address] [facility] Comment on above: Performed By: #### C BC ####[facility] C[address]qpc[address]wy[address] [place], [place] [address]DrLatoya Anthony Hematocrit (Bld) [Volume fraction] 39.1 % Critically low 42.0-54.0 [facility] Comment on above: Performed By: #### C BC ####[facility] Mzcodykbiw[address] [place], [place] [address]DrLatoya Anthony Hemoglobin (Bld) [Mass/Vol] 12.6 g/dL Critically low 14.0-18.[address] [facility] Comment on above: Performed By: #### C BC ####[facility] [address] [place], [place] [address]DrLatoya Anthony IG # 0.04 10e3/ul Critically high 0.00-0.[address] [facility] Comment on above: Performed By: #### C BC ####[facility] Gicoaccvtb[address] [place], [place] [address]DrLatoya Anthony IG % 0.6 % Critically high 0.0-0.[address] [facility] Comment on above: Performed By: #### C BC ####[facility] Gxbsghiiqx[address] [place], [place] [address]DrLatoya Anthony LYMPH # 0.9 103/ul Critically low 1.2-3.8 [facility] Comment on above: Performed By: #### C BC ####[facility] Rbfangbgfx[address] [place], [place] [address]DrLatoya Anthony Lymphocytes/100 WBC (Bld) 13.8 % Critically low 20.5-60.0 [facility] Comment on above: Performed By: #### C BC ####[facility] Jkcztrlyxy[address] [place], [place] [address]DrLatoya Anthony MANUAL DIFF REQ NO Normal [facility] Comment on above: Performed By: #### C BC ####[facility] Btecqvaayr[address] [place] [address]DrLatoya Anthony MCH (RBC) [Entitic mass] 27.5 pg Normal 25.9-34.[address] [facility] Comment on above: Performed By: #### C BC ####[facility] [address]sxnyjhg[address] [place] [address]DrLatoya Anthony MCHC (RBC) [Mass/Vol] 32.2 g/dL Normal 29.9-35.2 [facility] Comment on above: Performed By: #### C BC ####[facility] Japdpxzzst[address] [place], [place] [address]DrLatoya Anthony MCV (RBC) [Entitic vol] 85.2 fL Normal 80.0-94.0 [facility] Comment on above: Performed By: #### C BC ####[facility] Hlnbbmlqip[address] [place], [place] [address]DrLatoya Anthony MONO # 0.9 103/ul Critically high 0.3-0.[address] [facility] Comment on above: Performed By: #### C BC ####[facility] Aogsenedmz[address] [place], [place] [address]DrLatoya Anthony Monocytes/100 WBC (Bld) 14.0 % Critically high 1.7-12.[address] [facility] Comment on above: Performed By: #### C BC ####[facility] Esycobmnvd[address] [place], [place] [address]DrLatoya Anthony NEUT # 4.1 103/ul Normal 1.4-6.5 [facility] Comment on above: Performed By: #### C BC ####[facility] Y[address]yqhlfo[address] [place], [place] [address]DrLatoya Anthony Neutrophils/100 WBC (Bld) 61.6 % Normal 43.0-75.0 [facility] Comment on above: Performed By: #### C BC ####[facility] Nakfpzzwui[address] [place], [place] [address]DrLatoya Anthony Platelet mean volume (Bld) [Entitic vol] 10.1 fL Normal 9.5-13.5 [facility] Comment on above: Performed By: #### C BC ####[facility] [address] [place], [place] [address]Qq. Elba Anthony PLT 223 103/ul Normal 150-450 [facility] Comment on above: Performed By: #### C BC ####[facility] Wvqffwwkrj49[address] [place], [place] [address]Qg. Elba Anthony RBC 4.59 106/ul Critically low 4.70-6.10 [facility] Comment on above: Performed By: #### C BC ####[facility] S[address]ljovfwy67[address] [place], [place] [address]Hh. Elba Anthony WBC 6.7 103/ul Normal 4.0-11.0 [facility] Comment on above: Performed By: #### C BC ####[facility] Mjennghyzm[address]74 [place], [place] [address]Na. Elba Anthony [facility]on SARS-CoV-2 (COVID-19) RNA ELIZABETH+probe Ql (Unsp spec) Not detected Normal NOT DETECTED [facility] Comment on above: Result Comment: When [...] for this test is supported by the Junior Software Engineer of Health and Human Service's declaration that [...] be used). Performed By: #### C VDTBH ####[facility] [address]ghxub[address] [place] [address]Dr. Elba Anthony ER URINE PROFILEon 2 Bilirubin Ql (U) Negative Normal NEGATIVE [facility] Comment on above: Performed By: #### E RUR ####[facility] T[address]zcvza[address] [place], [place] [address]Dr. Elba Anthony Clarity (U) CLEAR Normal CLEAR [facility] Comment on above: Performed By: #### E RUR ####[facility] Larcbikjue[address] [place], [place] [address]Dr. Elba Anthony Color (U) LT. YELLOW Normal YELLOW [facility] Comment on above: Performed By: #### E RUR ####[facility] Awxskvecbj[address] [place], [place] [address]Dr. Elba Raj ERUAHD A micrscopic examina tion will be performed if indicated. Normal [facility] Comment on above: Performed By: #### E RUR ####[facility] Xpvruolhuw[address] [place], [place] [address]Dr. Elba Anthony Glucose Ql (U) Negative Normal NEGATIVE [facility] Comment on above: Performed By: #### E RUR ####[facility] Cdwinpnkcb[address] [place], [place] [address]Dr. Elba Anthony Hemoglobin Ql (U) Negative Normal NEGATIVE [facility] Comment on above: Performed By: #### E RUR ####[facility] Plyziorfnt64[address] [place], [place] [address]Dr. Elba Anthony Ketones Ql (U) Negative Normal NEGATIVE [facility] Comment on above: Performed By: #### E RUR ####[facility] Kljpmbjjli[address] [place], [place] [address]Dr. Yilan Anthony LEUKOCYTES Negative Normal NEGATIVE [facility] Comment on above: Performed By: #### E RUR ####[facility] Pecmotpgpx[address] [place], [place] [address]Dr. Yilan Anthony Nitrite Ql (U) Negative Normal NEGATIVE [facility] Comment on above: Performed By: #### E RUR ####[facility] Kqnxxtoevb[address] [place] [address]Dr. Elba Anthony pH (U) 7.0 [pH] Normal 5-9 [facility] Comment on above: Performed By: #### E RUR ####[facility] Hy[address]lmvfkun[address] [place] [address]Dr. Elba Anthony SPEC GRAVITY 1.010 Normal 1.005-<=1.[address] [facility] Comment on above: Performed By: #### E RUR ####[facility] S[address]werxoxh[address] [place] [address]Dr. Elba Anthony UA PROTEIN Negative Normal NEGATIVE/ TRACE [facility] Comment on above: Performed By: #### E RUR ####[facility] [address]qrdvfbn[address] [place], [place] [address]Dr. Elba Anthony UR MICRO IND NOT INDICATED Normal [facility] Comment on above: Performed By: #### E RUR ####[facility] Iebymqxjqg[address] [place], [place] [address]Dr. Elba Anthony Urobilinogen Qn (U) 0.2 {Caden'U}/dL Normal 0.2 - 1. [address] [facility] Comment on above: Performed By: #### E RUR ####[facility] Xbqaffrnxo[address] [place], [place] [address]Dr. Elba Anthony PROF 14(COMP METB)on 022 Albumin [Mass/Vol] 3.3 g/dL Critically low 3.4-5.0 [facility] Comment on above: Performed By: #### H STROPN, BNP, CMP ####[facility] [address]qom[address]cczn[address] [place] [address]Dr. Elba Anthony Albumin/Globulin [Mass ratio] 0.8 {ratio} Normal [facility] Comment on above: Performed By: #### H STROPN, BNP, CMP ####[facility] Vbq[address]jfbs[address] [place], [place] [address]Dr. Elba Anthony ALP [Catalytic activity/Vol] 114 U/L Normal 46-116 [facility] Comment on above: Performed By: #### H STROPN, BNP, CMP ####[facility] Qmlsbmheon[address] [place] [address]Dr. Elba Anthony ALT [Catalytic activity/Vol] 23 U/L Normal 16-63 [facility] Comment on above: Performed By: #### H STROPN, BNP, CMP ####[facility] [address]vmfngjcnr[address] [place] [address]Dr. Elba Anthony Anion gap [Moles/Vol] 9.5 mmol/L Normal [facility] Comment on above: Performed By: #### H STROPN, BNP, CMP ####[facility] Psiwenpmdw[address] [place] [address]Dr. Elba Anthony AST [Catalytic activity/Vol] 32 U/L Normal 15-[address] [facility] Comment on above: Performed By: #### H STROPN, BNP, CMP ####[facility] Lqnfrcmjme[address] [place] [address]Dr. Elba Anthony Bilirubin [Mass/Vol] 0.7 mg/dL Normal 0.2-1.0 [facility] Comment on above: Performed By: #### H STROPN, BNP, CMP ####[facility] [address]fujjvff[address] [place], [place] [address]Dr. Elba Anthony Calcium [Mass/Vol] 9.1 mg/dL Normal 8.5-10.[address] [facility] Comment on above: Performed By: #### H STROPN, BNP, CMP ####[facility] [address]uz[address]eyoqvb[address] [place] [address]Dr. Elba Anthony Chloride [Moles/Vol] 99 mmol/L Normal 98-107 [facility] Comment on above: Performed By: #### H STROPN, BNP, CMP ####[facility] [address]ptaf[address]ki[address] [place] [address]Dr. Elba Anthony CO2 [Moles/Vol] 33.2 mmol/L Critically high 21.0-32.0 [facility] Comment on above: Performed By: #### H STROPN, BNP, CMP ####[facility] E[address]utxk[address] [place] [address]Dr. Elba Anthony Creatinine [Mass/Vol] 2.31 mg/dL Critically high 0.70-1.30 [facility] Comment on above: Performed By: #### H STROPN, BNP, CMP ####[facility] Nwasebpaid[address] [place] [address]Dr. Elba Anthony EGFR-AF SAUDI ARABIAN 34 mL/min/1.73m2 Critically low >=60 [facility] Comment on above: Performed By: #### H STROPN, BNP, CMP ####[facility] [address]ftlrsuuo[address] [place] [address]Dr. Elba Anthony EGFR-NON AF SAUDI ARABIAN 28 mL/min/1.73m2 Critically low >=60 [facility] Comment on above: Performed By: #### H STROPN, BNP, CMP ####[facility] Yjnxrtralw[address] [place] [address]Dr. Elba Anthony Globulin (S) [Mass/Vol] 4.3 g/dL Normal [facility] Comment on above: Performed By: #### H STROPN, BNP, CMP ####[facility] Ijvmogmwmr[address] [place], [place] [address]Dr. Elba Anthony Glucose [Mass/Vol] 98 mg/dL Normal 74-106 [facility] Comment on above: Performed By: #### H STROPN, BNP, CMP ####[facility] Wknjjmvpyc[address] [place] [address]Dr. Elba Anthony Potassium [Moles/Vol] 4.7 mmol/L Normal 3.5-5.1 [facility] Comment on above: Performed By: #### H STROPN, BNP, CMP ####[facility] [address]bzwacwv[address] [place], [place] [address]Dr. Nereydalan Anthony Protein [Mass/Vol] 7.6 g/dL Normal 6.4-8.2 [facility] Comment on above: Performed By: #### H STROPN, BNP, CMP ####[facility] [address]ktdsmkc[address] [place] [address]Dr. Elba Anthony Sodium [Moles/Vol] 137 mmol/L Normal 136-145 [facility] Comment on above: Performed By: #### H STROPN, BNP, CMP ####[facility] [address] [place] [id number]. Elba Anthony Urea nitrogen [Mass/Vol] 47.0 mg/dL Critically high 7.0-18.0 [facility] Comment on above: Performed By: #### H STROPN, BNP, CMP ####[facility] Qldetwlyzr[address] [place] [address]Dr. Elba Anthony Urea nitrogen/Creatinine [Mass ratio] 20.3 mg/mg Normal [facility] Comment on above: Performed By: #### H STROPN, BNP, CMP ####[facility] Ssuswcsdcd[address] [place] [address]Dr. Elba Anthony PROTIMEon 07-10-2022 INR Coag (PPP) [Relative time] 1.07 {INR} Normal [facility] Comment on above: Performed By: #### P T, PTT ####[facility] Zxotdywxuy[address] [place], [place] [address]Dr. Elba Anthony INR GUIDELINES SEE BELOW Normal [facility] Comment on above: Result Comment: FUAD RED INR: 2.0 - 3.0 CONDITIONS NOT LISTED BELOW 2.5 - 3.5 FOR PROSTHETIC HEART VALVE REPLACEMENT 2.5 - 3.5 RECURRENT THROMBOSIS Performed By: #### P T, PTT ####[facility] Nddmtromex[address] [place], [place] [address]Dr. Elba Anthony PT Coag (PPP) [Time] 11.5 s Normal 9.0-11.[address] [facility] Comment on above: Performed By: #### P T, PTT ####[facility] Zs[address]hlrujb[address] [place], [place] [address]Dr. Elba Anthony PTTon 07-10-2022 aPTT Coag (Bld) [Time] 34.7 s Normal 22.3-36.2 [facility] Comment on above: Performed By: #### P T, PTT ####[facility] V[address]beaenl[address] [place], [place] [address]Dr. Elba Anthony TROPONIN, HIGH SENSITIVITYon 07-10-2022 HSTROP 45.2 pg/mL Normal 4.0-76.1 [facility] Comment on above: Result Comment: CUT- OFF POINTS HAVE BEEN ESTABLISHED BASED ON THE FOURTH UNIVERSAL DEFINITIONS OF MYOCARDIALINFARCTION. THE UPPER REFERENCE LIMIT (URL) OF TROPONIN, DEFINED THE 99TH PERCENTILE OFcTnI DISTRIBUTION IN A REFERENCE POPULATION, HAS BEEN CONFIRMED THE DECISION THRESHOLDFOR SD DIAGNOSIS. Performed By: #### H STROPN, BNP, CMP ####[facility] [address]wt[address]jp35[address] [place], [place] [address]Qn. Elba Anthony XR CHEST 1 Von 07-10-2022 XR CHEST [address] [facility] US venous duplex LE BIon US venous duplex LE BI [facility] [place] [address] Ultrasound Report Signed Patient: Man Patel MR#: [id number] : 1950 Acct:[id number] Age/Sex: 72 / M ADM Date: 06/27/22 Loc: ER Room: Type: [facility] ER Attending Dr: Ordering Provider: Melva [...] Balwinder Watson MD06/28/2022 8:49 AM Dictation Location[facility] Tech: Mayra Henry Transcribed By: [facility] 06/28/22848 Dictated By: Balwinder Watson MD 06/28/22848 Signed By: 06/28/22848 [facility] Activated partial thrombopla stin time (aPTT) in platelet poor plasma by coagulation aOrdered By: Melva Owusu on 06-27-2022 aPTT Coag (PPP) [Time] 36.4 s 25.1-36.5 [facility] Albumin [Mass/volume] in Ser um or PlasmaOrdered By: Melva Owusu on 06-27-2022 Albumin [Mass/Vol] 3.1 g/dL 3.2-5.5 [facility] B-Type Natriuretic Peptideon 06-27-2022 Natriuretic peptide B (Bld) [Mass/Vol] 367.0 pg/mL High 5-100 [facility] Comment on above: Result Comment: PERF ORMED BY: [place] [id number] [address] GARCIA M.D. Performed By: #### S OFIANJAM, COVID-19 JOSE #### [facility] [address] [place] [address] [place] Basophils Auto (Bld) [#/Vol] Ordered By: Melva Owusu on 06-27-2022 Basophils (Bld) [#/Vol] 0.0 10*3/uL 0.0-0.2 [facility] Basophils/100 WBC Auto (Bld) Ordered By: Melva Owusu on 06-27-2022 Basophils/100 WBC (Bld) 0.6 % . [facility] Bilirubin Test strip Ql (U)O rdered By: Melva Owusu on 06-27-2022 Bilirubin Ql (U) Negative Negative [facility] Blood Cultureon 06-27-2022 Bacteria identified Cx Nom (Bld) NO GROWTH 5 DAYS PERFORMED BY: [place] [address] GARCIA M.D. Normal [facility] Comment on above: Performed By: #### C UBLD, LACTIC #### [facility] [address] [place] [id number] Bacteria identified Cx Nom (Bld) NO GROWTH 5 DAYS PERFORMED BY: [place] [address] GARCIA M.D. [facility] Comment on above: Performed By: #### C UBLD, LACTIC #### [facility] [address] COVID-19 Antigenon 2 COVID-19 Antigen Healthcare [...] developed and its performance characteristic determined by [employer] and validated at [facility]. This test has not been FDA cleared [...] for SARS Antigen by MORIAH PERFORMED BY: [place] [address] GARCIA M.D. [facility] Comment on above: Performed By: #### S JORGE, COVID-19 JOSE #### [facility] [address] [place] [address] COVID-19 SOFIAOrdered By: Fito ria Chavarria on 06-27-2022 SARS-CoV+SARS-CoV-2 (COVID-19) Ag IA.rapid Ql (Resp) Negative Negative [facility] Comment on above: This is a duplicate Jose SARS Antigen (MORIAH) result to be used for statistical tracking purpose only. Coagulation Profileon 2021 aPTT Coag (Bld) [Time] 36.4 s Normal 25.1-36.5 Fi [facility] Comment on above: Result Comment: PERF ORMED BY: [place] [address] GARCIA M.D[address] Performed By: #### S JORGE COVID-19 JOSE #### [facility] [address] [place] [address] INR Coag (PPP) [Relative time] 1.5 {INR} Normal [facility] Comment on above: Result Comment: INR Therapeutic [...] By: #### S OFCATALINA COVID-19 JOSE #### [facility] [address] [place] [address] PT Coag (PPP) [Time] 17.3 s High 9.0-12.9 [facility] Comment on above: Performed By: #### S OFCATALINA COVID-19 JOSE #### [facility] [address] [place] [address] Color Auto (U)Ordered By: Lisa Owusu on 06-27-2022 Color (U) Yellow Yellow [facility] Complete Blood Count Auto Di ffon 06-27-2022 Basophils (Bld) [#/Vol] 0.0 10*3/uL Normal 0.0-0.2 [facility] Comment on above: Result Comment: PERF ORMED BY: [place] [address] GARCIA M.D[address] Performed By: #### B BINGO FLOATER, CBC, PP, CMP #### [address] Basophils/100 WBC (Bld) 0.6 % Normal . [facility] Comment on above: Performed By: #### B BINGO FLOATER, CBC, PP, CMP #### [address] Eosinophils (Bld) [#/Vol] 0.6 10*3/uL High 0.0-0.45 [facility] Comment on above: Performed By: #### B BINGO FLOATER, CBC, PP, CMP #### [address] Eosinophils/100 WBC (Bld) 9.4 % Normal . [facility] Comment on above: Performed By: #### B BINGO FLOATER, CBC, PP, CMP #### [address] Erythrocyte distribution width (RBC) [Ratio] 24.6 % High 12.0-14.8 [facility] Comment on above: Performed By: #### B BINGO FLOATER, CBC, PP, CMP #### [address] Hematocrit (Bld) [Volume fraction] 39.7 % Normal 38.8-50.0 [facility] Comment on above: Performed By: #### B BINGO FLOATER, CBC, PP, CMP #### [address] Hemoglobin (Bld) [Mass/Vol] 12.9 g/dL Low 13.0-17.0 [facility] Comment on above: Performed By: #### B BINGO FLOATER, CBC, PP, CMP #### [place] [address] [place] Lymphocytes (Bld) [#/Vol] 0.6 10*3/uL Low 1.00-4.8 [facility] Comment on above: Performed By: #### B BINGO FLOATER, CBC, PP, CMP #### [address] Lymphocytes/100 WBC (Bld) 9.3 % Normal . [facility] Comment on above: Performed By: #### B BINGO FLOATER, CBC, PP, CMP #### [address] MCH (RBC) [Entitic mass] 26.8 pg Low 27.5-35.2 [facility] Comment on above: Performed By: #### B BINGO FLOATER, CBC, PP, CMP #### [address] MCV (RBC) [Entitic vol] 82.7 fL Low 83.5-101 [facility] Comment on above: Performed By: #### B BINGO FLOATER, CBC, PP, CMP #### [address] Mean Corpuscular HGB Conc 32.4 g/dL Low 32.5-35.6 [facility] Comment on above: Performed By: #### B BINGO FLOATER, CBC, PP, CMP #### [address] Monocytes (Bld) [#/Vol] 0.6 10*3/uL Normal 0.0-0.8 [facility] Comment on above: Performed By: #### B BINGO FLOATER, CBC, PP, CMP #### [address] Monocytes/100 WBC (Bld) 9.4 % Normal . [facility] Comment on above: Performed By: #### B BINGO FLOATER, CBC, PP, CMP #### [address] Neutrophils (Bld) [#/Vol] 4.7 10*3/uL Normal 1.8-7.7 [facility] Comment on above: Performed By: #### B BINGO FLOATER, CBC, PP, CMP #### [facility] [address] Neutrophils/100 WBC (Bld) 71.3 % Normal . [facility] Comment on above: Performed By: #### B BINGO FLOATER, CBC, PP, CMP #### [address] Nucleated RBC/100 WBC (Bld) [Ratio] 0.0 % Normal 0-0.5 [facility] Comment on above: Performed By: #### B BINGO FLOATER, CBC, PP, CMP #### [address] Platelet mean volume (Bld) [Entitic vol] 8.0 fL Normal 6.6-10.1 [facility] Comment on above: Performed By: #### B BINGO FLOATER, CBC, PP, CMP #### [address] Platelets (Bld) [#/Vol] 163 10*3/uL Normal 150-450 [facility] Comment on above: Performed By: #### B BINGO FLOATER, CBC, PP, CMP #### [address] RBC (Bld) [#/Vol] 4.80 10*6/uL Normal 3.90-5.60 [facility] Comment on above: Performed By: #### B BINGO FLOATER, CBC, PP, CMP #### [address] WBC (Bld) [#/Vol] 6.5 10*3/uL Normal 4.5-11.0 [facility] Comment on above: Performed By: #### B BINGO FLOATER, CBC, PP, CMP #### [address] Comprehensive Metabolic Pane jeff 06-27-2022 Albumin [Mass/Vol] 3.1 g/dL Low 3.2-5.5 [facility] Comment on above: Performed By: #### B BINGO FLOATER, CBC, PP, CMP #### [address] Albumin/Globulin [Mass ratio] 0.8 {ratio} Normal [facility] Comment on above: Performed By: #### B BINGO FLOATER, CBC, PP, CMP #### [address] ALP [Catalytic activity/Vol] 98 U/L High 32-92 [facility] Comment on above: Performed By: #### B BINGO FLOATER, CBC, PP, CMP #### [address] ALT [Catalytic activity/Vol] 28 U/L Normal 10-60 [facility] Comment on above: Performed By: #### B BINGO FLOATER, CBC, PP, CMP #### [address] Anion gap [Moles/Vol] 15.0 mmol/L Normal 6.0-15.0 [facility] Comment on above: Performed By: #### B BINGO FLOATER, CBC, PP, CMP #### [address] AST [Catalytic activity/Vol] 32 U/L Normal 10-42 [facility] Comment on above: Performed By: #### B BINGO FLOATER, CBC, PP, CMP #### [address] Bilirubin [Mass/Vol] 0.9 mg/dL Normal 0.3-1.2 [facility] Comment on above: Performed By: #### B BINGO FLOATER, CBC, PP, CMP #### [address] Calcium [Mass/Vol] 9.4 mg/dL Normal 8.2-10.2 [facility] Comment on above: Performed By: #### B BINGO FLOATER, CBC, PP, CMP #### [address] Chloride [Moles/Vol] 96 mmol/L Normal 95-114 [facility] Comment on above: Performed By: #### B BINGO FLOATER, CBC, PP, CMP #### [address] CO2 [Moles/Vol] 28.8 mmol/L Normal 22.0-30.0 [facility] Comment on above: Performed By: #### B BINGO FLOATER, CBC, PP, CMP #### [address] Creatinine [Mass/Vol] 2.48 mg/dL High 0.64-1.27 [facility] Comment on above: Performed By: #### B BINGO FLOATER, CBC, PP, CMP #### [address] Creatinine Clr Calc Pharmacy 33.36 [facility] Comment on above: Result Comment: PERF ORMED BY: [place] [address] [address] GARCIA M.D. Performed By: #### B BINGO FLOATER, CBC, PP, CMP #### [address] Estimated GFR ( Andra 31 [facility] Comment on above: Result Comment: GFR estimated reference range: According to KDOQI guidelines, <60 ml/min/1.73m2 is sufficient to diagnose a patient with chronic kidney disease. Performed By: #### B BINGO FLOATER, CBC, PP, CMP #### [address] Estimated GFR (Non- Am 26 [facility] Comment on above: Performed By: #### B BINGO FLOATER, CBC, PP, CMP #### [address] Globulin (S) [Mass/Vol] 4.1 g/dL [facility] Comment on above: Performed By: #### B BINGO FLOATER, CBC, PP, CMP #### [address] Glucose [Mass/Vol] 128 mg/dL High 70-100 [facility] Comment on above: Result Comment: [place] Glucose Reference Range is dependent on time and content of last meal. Glucose of more than 200 mg/dL in a nonstressed, ambulatory subject supports the diagnosis of Diabetes Mellitus. ADA recommended reference range Performed By: #### B BINGO FLOATER, CBC, PP, CMP #### [facility] [address] Potassium [Moles/Vol] 3.8 mmol/L Normal 3.5-5.1 [facility] Comment on above: Performed By: #### B BINGO FLOATER, CBC, PP, CMP #### [facility] [address] Protein [Mass/Vol] 7.2 g/dL Normal 6.1-7.9 [facility] Comment on above: Performed By: #### B BINGO FLOATER, CBC, PP, CMP #### [facility] [address] Sodium [Moles/Vol] 136 mmol/L Normal 136-146 [facility] Comment on above: Performed By: #### B BINGO FLOATER, CBC, PP, CMP #### [facility] [address] Urea nitrogen [Mass/Vol] 40 mg/dL High 9-23 [facility] Comment on above: Performed By: #### B BINGO FLOATER, CBC, PP, CMP #### [facility] [address] Creatinine and Glomerular fi ltration rate.predicted panel (S/P/Bld)Ordered By: Melva Owusu on 06-27-2022 Creatinine [Mass/Vol] 2.48 mg/dL 0.64-1.27 [facility] Eosinophils Auto (Bld) [#/Vo l]Ordered By: Melva Owusu on 06-27-2022 Eosinophils (Bld) [#/Vol] 0.6 10*3/uL 0.0-0.45 [facility] Eosinophils/100 WBC Auto (Bl d)Ordered By: Melva Owusu on 06-27-2022 Eosinophils/100 WBC (Bld) 9.4 % . [facility] Erythrocyte distribution wid th Auto (RBC) [Ratio]Ordered By: Melva Owusu on 06-27-2022 Erythrocyte distribution width (RBC) [Ratio] 24.6 % 12.0-14.8 [facility] Estimated glomerular filtrat ion rate (GFR) non- AmericanOrdered By: Melva Owusu on 06-27-2022 GFR/1.73 sq M.predicted among non-blacks MDRD (S/P/Bld) [Vol rate/Area] 26 mL/Min [facility] Globulin Calc (S) [Mass/Vol] Ordered By: Melva Owusu on 06-27-2022 Globulin (S) [Mass/Vol] 4.1 g/dL [facility] Hematocrit Auto (Bld) [Volum e fraction]Ordered By: Melva Owusu on 06-27-2022 Hematocrit (Bld) [Volume fraction] 39.7 % 38.8-50.0 [facility] Hemoglobin [Mass/volume] in BloodOrdered By: Melva Owusu on 06-27-2022 Hemoglobin (Bld) [Mass/Vol] 12.9 g/dL 13.0-17.0 [facility] Ketones Auto test strip (U) [Mass/Vol]Ordered By: Melva Owusu on 06-27-2022 Ketones (U) [Mass/Vol] Negative Negative [facility] - Chemistry and C hemistry - challengeOrdered By: Melva Owusu on 06-27-2022 Natriuretic peptide B (Bld) [Mass/Vol] 367.0 pg/mL 5-100 [facility] - CoagulationOrde red By: Melva Owusu on 06-27-2022 PT Coag (PPP) [Time] 17.3 s 9.0-12.9 [facility] - Hematology and Cell countsOrdered By: Melva Owusu on 06-27-2022 Nucleated RBC/100 WBC (Bld) [Ratio] 0.0 % 0-0.5 [facility] Lactic Acidon 06-27-2022 Lactate [Moles/Vol] 1.7 mmol/L Normal 0.5-2.2 [facility] Comment on above: Result Comment: PERF ORMED BY: [facility] [address] [place] [address] GARCIA M.D. Performed By: #### C UBLD, LACTIC #### [facility] [address] Leukocytes [#/volume] in Blo od by Automated countOrdered By: Melva Owusu on 06-27-2022 WBC (Bld) [#/Vol] 6.5 10*3/uL 4.5-11.0 [facility] Lymphocytes Auto (Bld) [#/Vo l]Ordered By: Melva Owusu on 06-27-2022 Lymphocytes (Bld) [#/Vol] 0.6 10*3/uL 1.00-4.8 [facility] Lymphocytes/100 WBC Auto (Bl d)Ordered By: Melva Owusu on 06-27-2022 Lymphocytes/100 WBC (Bld) 9.3 % . [facility] MCH Auto (RBC) [Entitic mass ]Ordered By: Melva Owusu on 06-27-2022 MCH (RBC) [Entitic mass] 26.8 pg 27.5-35.2 [facility] MCHC Auto (RBC) [Mass/Vol]Or dered By: Melva Owusu on 06-27-2022 MCHC (RBC) [Mass/Vol] 32.4 g/dL 32.5-35.6 [facility] MCV Auto (RBC) [Entitic vol] Ordered By: Melva Owusu on 06-27-2022 MCV (RBC) [Entitic vol] 82.7 fL 83.5-101 [facility] Monocytes Auto (Bld) [#/Vol] Ordered By: Melva Owusu on 06-27-2022 Monocytes (Bld) [#/Vol] 0.6 10*3/uL 0.0-0.8 [facility] Monocytes/100 WBC Auto (Bld) Ordered By: Melva Owusu on 06-27-2022 Monocytes/100 WBC (Bld) 9.4 % . [facility] Neutrophils Auto (Bld) [#/Vo l]Ordered By: Melva Owusu on 06-27-2022 Neutrophils (Bld) [#/Vol] 4.7 10*3/uL 1.8-7.7 [facility] Neutrophils/100 WBC Auto (Bl d)Ordered By: Melva Owusu on 06-27-2022 Neutrophils/100 WBC (Bld) 71.3 % . [facility] Nitrite Test strip Ql (U)Ord ered By: Melva Owusu on 06-27-2022 Nitrite Ql (U) Negative Negative [facility] No Panel InformationOrdered By: Melva Owusu on 06-27-2022 Estimated GFR () 31 mL/Min [facility] Comment on above: GFR estimated refere nce range: According to KDOQI guidelines, <60 ml/min/1.73m2 is sufficient to diagnose a patient with chronic kidney disease. Pharmacy Creatinine Clearance (Chem 33.36 [facility] No Panel InformationOrdered By: Balwinder Chavarria on 06-27-2022 SARS Antigen (LFIA) [facility] Platelet mean volume Auto (B ld) [Entitic vol]Ordered By: Melva Owusu on 06-27-2022 Platelet mean volume (Bld) [Entitic vol] 8.0 fL 6.6-10.1 [facility] Platelet poor plasma interna tional normalized ratio (INR) by coagulation assay (relatOrdered By: Melva Owusu on 06-27-2022 INR Coag (PPP) [Relative time] 1.5 {INR} [facility] Comment on above: INR Therapeutic Rang e [...] 06-27-2022 Platelets (Bld) [#/Vol] 163 10*3/uL 150-450 [facility] Protein Auto test strip (U) [Mass/Vol]Ordered By: Melva Owusu on 06-27-2022 Protein (U) [Mass/Vol] Negative Negative Fi [facility] Protein [Mass/volume] in Ser um or PlasmaOrdered By: Melva Owusu on 06-27-2022 Protein [Mass/Vol] 7.2 g/dL 6.1-7.9 [facility] RBC Auto (Bld) [#/Vol]Ordere d By: Melva Owusu on 06-27-2022 RBC (Bld) [#/Vol] 4.80 10*6/uL 3.90-5.60 [facility] Serum or plasma alanine [place] otransferase measurement without P-5'-P (enzymatic activiOrdered By: Melva Owusu on 06-27-2022 ALT No additional P-5'-P [Catalytic activity/Vol] 28 U/L [facility] Serum or plasma albumin/glob ulin mass ratioOrdered By: Melva Owusu on 06-27-2022 Albumin/Globulin [Mass ratio] 0.8 {ratio} [facility] Serum or plasma alkaline mumtaz sphatase measurement (enzymatic activity/volume)Ordered By: Melva Owusu on 06-27-2022 ALP [Catalytic activity/Vol] 98 U/L 32-92 [facility] Serum or plasma anion gap de terminationOrdered By: Melva Owusu 06-27-2022 Anion gap [Moles/Vol] 15.0 mmol/L 6.0-15.0 [facility] Serum or plasma aspartate am inotransferase measurement (enzymatic activity/volume)Ordered By: Melva Owusu 06-27-2022 AST [Catalytic activity/Vol] 32 U/L 10 [facility] Serum or plasma calcium brii urement (mass/volume)Ordered By: Melva Owusu on 06-27-2022 Calcium [Mass/Vol] 9.4 mg/dL 8.2-10.2 [facility] Serum or plasma chloride edgar surement (moles/volume)Ordered By: Melva Owusu on 06-27-2022 Chloride [Moles/Vol] 96 mmol/L 95-114 [facility] Serum or plasma glucose brii urement (mass/volume)Ordered By: Melva Owusu on 06-27-2022 Glucose [Mass/Vol] 128 mg/dL 70-100 [facility] Comment on above: ADA recommended refe rence rangeRandom Glucose Reference Range is dependent on time and content of last meal. Glucose of more than 200 mg/dL in a nonstressed, ambulatory subject supports the diagnosis of Diabetes Mellitus. Serum or plasma potassium me asurement (moles/volume)Ordered By: Melva [facility] on 06-27-2022 Potassium [Moles/Vol] 3.8 mmol/L 3.5-5.1 [facility] Serum or plasma sodium measu rement (moles/volume)Ordered By: Melva [facility] on 06-27-2022 Sodium [Moles/Vol] 136 mmol/L 136-146 [facility] Serum or plasma total biliru bin measurement (mass/volume)Ordered By: [facility] on 06-27-2022 Bilirubin [Mass/Vol] 0.9 mg/dL 0.3-1.2 [facility] Serum or plasma total carbon dioxide measurement (moles/volume)Ordered By: Melva [facility] on 06-27-2022 CO2 [Moles/Vol] 28.8 mmol/L 22.0-30.0 [facility] Serum or plasma urea nitroge n measurement (mass/volume)Ordered By: Melva [facility] on 06-27-2022 Urea nitrogen [Mass/Vol] 40 mg/dL - [facility] Jose Ag Negativeon 06-27-20 Jose Ag Negative Negative Normal Negative [facility] Comment on above: Result Comment: This is a duplicate Jose SARS Antigen (MORIAH) result to be used for statistical tracking purpose only. PERFORMED BY: [place] [address] GARCIA M.D. Performed By: #### S MACK PATEL-Octavia JOSE #### [address] Specific gravity Auto test s trip (U) [Rel density]Ordered By: [facility]va [facility] 06-27-2022 Specific gravity (U) [Rel density] 1.012 1.001-1.030 [facility] Urinalysison 06-27-2022 Appearance (U) Clear Normal Clear [facility] Comment on above: Order Comment: Name Collection Type:: Clean-Voided Midstream Performed By: #### U A #### [facility] [address] [place] [address] [place] Bilirubin,Urine Negative Normal Negative [facility] Comment on above: Order Comment: Name Collection Type:: Clean-Voided Midstream Performed By: #### U A #### [facility] [address] [place] [address] [place] Color (U) Yellow Normal Yellow [facility] Comment on above: Order Comment: Name Collection Type:: Clean-Voided Midstream Performed By: #### U A #### [facility] [address] [place] [address] [place] Glucose Ql (U) Normal Normal Normal [facility] Comment on above: Order Comment: Name Collection Type:: Clean-Voided Midstream Performed By: #### U A #### [facility] [address] [place] [address] [place] Ketones Ql (U) Negative Normal Negative [facility] Comment on above: Order Comment: Name Collection Type:: Clean-Voided Midstream Performed By: #### U A #### [facility] [address] [place] [address] [place] Leukocyte esterase Test strip Ql (U) Negative Normal Negative [facility] Comment on above: Order Comment: Name Collection Type:: Clean-Voided Midstream Performed By: #### U A #### [facility] [address] [place] [address] [place] Nitrite,Urine Negative Normal Negative [facility] Comment on above: Order Comment: Name Collection Type:: Clean-Voided Midstream Performed By: #### U A #### [facility] [address] [place] [address] [place] Occult Blood,Urine Negative Normal Negative [facility] Comment on above: Order Comment: Name Collection Type:: Clean-Voided Midstream Result Comment: PERF ORMED BY: [place] [address] GARCIA M.D. Performed By: #### U A #### [address] pH (U) 6.0 [pH] Normal 5.0-9.0 [facility] Comment on above: Order Comment: Name Collection Type:: Clean-Voided Midstream Performed By: #### U A #### [address] Protein,Urine Negative Normal Negative [facility] Comment on above: Order Comment: Name Collection Type:: Clean-Voided Midstream Performed By: #### U A #### [address] Specificy [place],Urine 1.012 Normal 1.001-1.030 [facility] Comment on above: Order Comment: Name Collection Type:: Clean-Voided Midstream Performed By: #### U A #### [address] Urobilinogen,Urine Normal Normal Normal [facility] Comment on above: Order Comment: Name Collection Type:: Clean-Voided Midstream Performed By: #### U A #### [address] Urine clarity by refractomet ry automatedOrdered By: Melva Owusu on 06-27-2022 Clarity Refractometry automated (U) Clear Clear [facility] Urine glucose measurement by automated test strip (mass/volume)Ordered By: Melva Owusu on 06-27-2022 Glucose Auto test strip (U) [Mass/Vol] Normal mg/dL Normal [facility] Urine hemoglobin detection b y automated test stripOrdered By: Melva Owusu on 06-27-2022 Hemoglobin Auto test strip Ql (U) Negative Negative [facility] Urine lactic acid measuremen tOrdered By: Melva Owusu on 06-27-2022 Lactate (U) [Moles/Vol] 1.7 mmol/L 0.5-2.2 [facility] Urine leukocyte esterase det ection by automated test stripOrdered By: Melva Owusu on 06-27-2022 Leukocyte esterase Auto test strip Ql (U) Negative Negative [facility] Urobilinogen Auto test strip (U) [Mass/Vol]Ordered By: Melva Owusu on 06-27-2022 Urobilinogen (U) [Mass/Vol] Normal mg/dL Normal [facility] XR chest 2V*on 06-27-2022 XR chest 2V* [facility] [place] [address] [place] [address] XRay Report Signed Patient: Man Patel MR#: [id number] : 1950 Acct:[id number] Age/Sex: 72 / M ADM Date: 06/27/22 Loc: ER Room: Type: [facility] ER Attending Dr: Copies to: GAIL [...] Cris Johnson M.D.06/27/2022 3:42 PM Dictation Location: [place] [address] Transcribed By: [facility] 06/27/221541 Dictated By: Cris Johnson MD 06/27/221539 Signed By: 06/27/221541 Normal [facility] pH Auto test strip (U)Ordere d By: Melva Owusu on 06-27-2022 pH (U) 6.0 [pH] 5.0-9.0 [facility] ECHOCARDIO M/2D COMPLETEon 1 ECHOCARDIO M/2D COMPLETE Normal [facility] BASIC METABOLIC PANELon 09-0 Calcium [Mass/Vol] 8.6 mg/dL Normal 8.6-10.3 [facility] Comment on above: Order Comment: Yes: Add to Previous draw if able Performed By: #### 5 0103 #### [facility] [address] [place] [address], [facility] Chloride [Moles/Vol] 97 mmol/L Low 98-107 [facility] Comment on above: Order Comment: Yes: Add to Previous draw if able Performed By: #### 5 0103 #### [facility] [address] [place] [address], [place] CO2 [Moles/Vol] 30 mmol/L Normal 21-31 [facility] Comment on above: Order Comment: Yes: Add to Previous draw if able Performed By: #### 5 0103 #### [facility] [address] [place] [address], [place] Creatinine [Mass/Vol] 2.14 mg/dL High 0.70-1.30 [facility] Comment on above: Order Comment: Yes: Add to Previous draw if able Performed By: #### 5 0103 #### [facility] [address] [place] [address], [place] EGFR 32 ml/min/1.73sq m Abnormal >60 [facility] Comment on above: Order Comment: Yes: Add to Previous draw if able Result Comment: [facility]'s estimated glomerular filtration rate (eGFR) will [...] [facility] [address] [place] [address], [facility] Glucose [Mass/Vol] 90 mg/dL Normal 70-100 [facility] Comment on above: Order Comment: Yes: Add to Previous draw if able Performed By: #### 5 0103 #### [facility] [address] [place] [address], [facility] Potassium [Moles/Vol] 3.7 mmol/L Normal 3.5-5.1 [facility] Comment on above: Order Comment: Yes: Add to Previous draw if able Performed By: #### 5 0103 #### [facility] [address] [place] [address], [facility] Sodium [Moles/Vol] 135 mmol/L Low 136-145 [facility] Comment on above: Order Comment: Yes: Add to Previous draw if able Performed By: #### 5 0103 #### [facility] [address] [place] [address], [facility] Urea nitrogen [Mass/Vol] 32 mg/dL High 7-25 [facility] Comment on above: Order Comment: Yes: Add to Previous draw if able Performed By: #### 5 0103 #### [facility] [address] *SARS-CoV-2 COVID-19on 05-07 SARS-CoV-2 (COVID-19) RNA ELIZABETH+probe Ql (Unsp spec) Detected Critically abnormal Not Detected [facility] Comment on above: Order Comment: The A ptima SARS-CoV-2 assay is a nucleic acid amplification testintended for the qualitative detection of RNA from SARS-CoV-2 isolatedand purified from nasopharyngeal (BINGO FLOATER), oropharyngeal (OP), nasal swab,sputum, and bronchoalveolar lavage (BAL) specimens from patients withsigns and symptoms of infection who are suspected of COVID-19.Results are for the identification of SARS-CoV-2 RNA. The SARS-CoV-2 RNAis generally detectable during the acute phase of infection.The Aptima SARS-CoV-2 Assay on the [place] [employer] [place] [employer] system isintended for use by laboratory personnel specifically instructed andtrained in the operation of the [place] [employer] [place] [employer] system. TheAptima SARS-CoV-2 assay is only [...] #### 3 [id number] ####[facility] [facility].[address] BASIC METABOLIC PANELon 08-3 Calcium [Mass/Vol] 8.4 mg/dL Low 8.6-10.3 [facility] Comment on above: Order Comment: No: D o not add to previous draw Performed By: #### 0 0071, [id number], [id number] ####[facility] [facility] [address], [facility] Chloride [Moles/Vol] 97 mmol/L Low 98-107 [facility] Comment on above: Order Comment: No: D o not add to previous draw Performed By: #### 0 0071, [id number], [id number] ####[facility] [facility] [place] [address], [facility] CO2 [Moles/Vol] 30 mmol/L Normal 21-31 [facility] Comment on above: Order Comment: No: D o not add to previous draw Performed By: #### 0 0071, 66943, 75013 ####[facility] [facility] [address], [facility] Creatinine [Mass/Vol] 2.06 mg/dL High 0.70-1.30 [facility] Comment on above: Order Comment: No: D o not add to previous draw Performed By: #### 0 0071, 23267, 97360 ####[facility] [facility] [address], [facility] EGFR 34 ml/min/1.73sq m Abnormal >60 [facility] Comment on above: Order Comment: No: D o not add to previous draw Result Comment: [facility]'s estimated glomerular filtration rate (eGFR) will [...] of individuals. Performed By: #### 0 0071, 35803, 47061 ####[facility] [facility] [place] [address], [facility] Glucose [Mass/Vol] 86 mg/dL Normal 70-100 [facility] Comment on above: Order Comment: No: D o not add to previous draw Performed By: #### 0 0071, 34445, 48791 ####[facility] [facility] [place] [address], [facility] Potassium [Moles/Vol] 3.7 mmol/L Normal 3.5-5.1 [facility] Comment on above: Order Comment: No: D o not add to previous draw Performed By: #### 0 0071, 23807, 40113 ####[facility] [place] [address], [facility] Sodium [Moles/Vol] 135 mmol/L Low 136-145 [facility] Comment on above: Order Comment: No: D o not add to previous draw Performed By: #### 0 0071, 99508, 60230 ####[facility] Urea nitrogen [Mass/Vol] 35 mg/dL High 7-25 [facility] Comment on above: Order Comment: No: D o not add to previous draw Performed By: #### 0 0071, 32634, 97411 ####[facility] [facility] CBC COMPLETE BLOOD COUNTon 0 05-07-2022 Erythrocyte distribution width (RBC) [Ratio] 21.2 % High 11.5-15.0 [facility] Comment on above: Order Comment: No: D o not add to previous draw Performed By: #### 5 [id number] #### [facility] [address] Hematocrit (Bld) [Volume fraction] 36.1 % Low 39.0-50.0 [facility] Comment on above: Order Comment: No: D o not add to previous draw Performed By: #### 5 0608 #### [facility] [address] [place] [address], [facility] Hemoglobin (Bld) [Mass/Vol] 10.4 g/dL Low 13.0-17.0 [facility] Comment on above: Order Comment: No: D o not add to previous draw Performed By: #### 5 0608 #### [facility] [address] [place] [address], [facility] MCH (RBC) [Entitic mass] 23.6 pg Low 27.0-33.0 [facility] Comment on above: Order Comment: No: D o not add to previous draw Performed By: #### 5 0608 #### [facility] [address] [place] [address], [facility] MCHC (RBC) [Mass/Vol] 28.8 g/dL Low 32.0-35.0 [facility] Comment on above: Order Comment: No: D o not add to previous draw Performed By: #### 5 0608 #### [facility] [address] [place] [address], [facility] MCV (RBC) [Entitic vol] 81.9 fL Low 82.0-98.0 [facility] Comment on above: Order Comment: No: D o not add to previous draw Performed By: #### 5 0608 #### [facility] [address] [place] [place] [address], [facility] Nucleated RBC/100 WBC (Bld) [Ratio] 0 % Normal 0-0 [facility] Comment on above: Order Comment: No: D o not add to previous draw Performed By: #### 5 0608 #### [facility] [address] [place] [place] [address], [facility] PLAT CNT 207 10*3/uL Normal 150-400 [facility] Comment on above: Order Comment: No: D o not add to previous draw Performed By: #### 5 0608 #### [facility] [address] [place] [address], [facility] RBC (Bld) [#/Vol] 4.41 10*6/uL Normal 4.20-5.70 [facility] Comment on above: Order Comment: No: D o not add to previous draw Performed By: #### 5 0608 #### [facility] [address] [facility] [address], [facility] WBC (Bld) [#/Vol] 4.60 10*3/uL Normal 4.00-10.60 [facility] Comment on above: Order Comment: No: D o not add to previous draw Performed By: #### 5 0608 #### [facility] [address] [place] [place] [address], [facility] MAGNESIUM BLOODon 05-07-2022 Magnesium [Mass/Vol] 2.3 mg/dL Normal 1.9-2.7 [facility] Comment on above: Order Comment: No: D o not add to previous draw Performed By: #### 0 0071, [id number], 97760 ####[facility] [facility] [address], [facility] PHOSPHORUS BLOODon Phosphate [Mass/Vol] 2.6 mg/dL Normal 2.5-5.0 [facility] Comment on above: Order Comment: No: D o not add to previous draw Performed By: #### 0 0071, 20003, 69811 ####[facility] POC SARS COV2 ANTIGEN POSITI VEon 05-07-2022 POC SARS COV2 ANTIGEN POS Positive Critically abnormal NEGATIVE [facility] Comment on above: Result Comment: Posi tive results indicate the presence of viral antigens, but clinical correlation with patient history and other diagnostic information is necessary to determine infection status. Positive results do not rule out bacterial infection or co-infection with other viruses. The agent detected may not be the definite cause of disease. Laboratories within the [facility] and its territories are required to report all results to the appropriate public health authorities. The Clarity COVID-19 Antigen Rapid Test Cassette is a rapid chromatographic immunoassay intended for the qualitative detection of the nucleocapsid protein antigen from SARS-CoV-2 in direct nasopharyngeal swab (BINGO FLOATER) specimens from individuals who are suspected of [...] 5 #### [facility] [address] [place] [address], [facility] BASIC METABOLIC PANELon 04-09 Calcium [Mass/Vol] 8.3 mg/dL Low 8.6-10.3 [facility] Comment on above: Order Comment: No: D o not add to previous draw Performed By: #### 7 0207 #### [facility] [address] [place] [address], [place] Chloride [Moles/Vol] 99 mmol/L Normal 98-107 [facility] Comment on above: Order Comment: No: D o not add to previous draw Performed By: #### 7 0207 #### [facility] [address] [place] [address], [place] CO2 [Moles/Vol] 30 mmol/L Normal 21-31 [facility] Comment on above: Order Comment: No: D o not add to previous draw Performed By: #### 7 0207 #### [facility] [address] [place] [address], [place] Creatinine [Mass/Vol] 2.08 mg/dL High 0.70-1.30 [facility] Comment on above: Order Comment: No: D o not add to previous draw Performed By: #### 7 0207 #### [facility] [address] [place] [address], [facility] EGFR 34 ml/min/1.73sq m Abnormal >60 [facility] Comment on above: Order Comment: No: D o not add to previous draw Result Comment: [facility]'s estimated glomerular filtration rate (eGFR) will [...] [facility] [address] [place] [address], [place] Glucose [Mass/Vol] 91 mg/dL Normal 70-100 [facility] Comment on above: Order Comment: No: D o not add to previous draw Performed By: #### 7 0207 #### [facility] [address] [place] [address], [facility] Potassium [Moles/Vol] 3.5 mmol/L Normal 3.5-5.1 [facility] Comment on above: Order Comment: No: D o not add to previous draw Performed By: #### 7 0207 #### [facility] [address] [place] [id number], [facility] Sodium [Moles/Vol] 137 mmol/L Normal 136-145 [facility] Comment on above: Order Comment: No: D o not add to previous draw Performed By: #### 7 0207 #### [facility] [address] [place] [address], [facility] Urea nitrogen [Mass/Vol] 36 mg/dL High 7-25 [facility] Comment on above: Order Comment: No: D o not add to previous draw Performed By: #### 7 0207 #### [facility] [address] TSH3 WITH REFLEX FT4on 05-06 TSH 3RD GENERATION 2.46 uIU/mL Normal 0.34-5.60 [facility] Comment on above: Performed By: #### 7 0207 #### [facility] [address] [facility] [place] [address], [facility] BASIC METABOLIC PANELon 04-09 Calcium [Mass/Vol] 7.9 mg/dL Low 8.6-10.3 [facility] Comment on above: Order Comment: Check Pacemaker/AICD Lead Position, Chest X-ray PA \EANDE\ LAT in Dept ;DO NOT lift affected arm above shoulder. S/P pacemaker/ICD implant. Verify lead placement Performed By: #### 0 0071 ####[facility] [place] [address], [facility] Chloride [Moles/Vol] 99 mmol/L Normal 98-107 [facility] Comment on above: Order Comment: Check Pacemaker/AICD Lead Position, Chest X-ray PA \EANDE\ LAT in Dept ;DO NOT lift affected arm above shoulder. S/P pacemaker/ICD implant. Verify lead placement Performed By: #### 0 0071 ####[facility] [facility].[address] CO2 [Moles/Vol] 28 mmol/L Normal 21-31 [facility] Comment on above: Order Comment: Check Pacemaker/AICD Lead Position, Chest X-ray PA \EANDE\ LAT in Dept ;DO NOT lift affected arm above shoulder. S/P pacemaker/ICD implant. Verify lead placement Performed By: #### 0 0071 ####[facility] Creatinine [Mass/Vol] 2.11 mg/dL High 0.70-1.30 [facility] Comment on above: Order Comment: Check Pacemaker/AICD Lead Position, Chest X-ray PA \EANDE\ LAT in Dept ;DO NOT lift affected arm above shoulder. S/P pacemaker/ICD implant. Verify lead placement Performed By: #### 0 0071 ####[facility] [facility].[address] EGFR 33 ml/min/1.73sq m Abnormal >60 [facility] Comment on above: Order Comment: Check Pacemaker/AICD Lead Position, Chest X-ray PA \EANDE\ LAT in Dept ;DO NOT lift affected arm above shoulder. S/P pacemaker/ICD implant. Verify lead placement Result Comment: [facility]'s estimated glomerular filtration rate (eGFR) will [...] #### 0 0071 ####[facility] [place] [address], [facility] Glucose [Mass/Vol] 95 mg/dL Normal 70-100 [facility] Comment on above: Order Comment: Check Pacemaker/AICD Lead Position, Chest X-ray PA \EANDE\ LAT in Dept ;DO NOT lift affected arm above shoulder. S/P pacemaker/ICD implant. Verify lead placement Performed By: #### 0 0071 ####[facility] [place] [address], [facility] Potassium [Moles/Vol] 3.5 mmol/L Normal 3.5-5.1 [facility] Comment on above: Order Comment: Check Pacemaker/AICD Lead Position, Chest X-ray PA \EANDE\ LAT in Dept ;DO NOT lift affected arm above shoulder. S/P pacemaker/ICD implant. Verify lead placement Performed By: #### 0 0071 ####[facility] [place] [address], [facility] Sodium [Moles/Vol] 137 mmol/L Normal 136-145 [facility] Comment on above: Order Comment: Check Pacemaker/AICD Lead Position, Chest X-ray PA \EANDE\ LAT in Dept ;DO NOT lift affected arm above shoulder. S/P pacemaker/ICD implant. Verify lead placement Performed By: #### 0 0071 ####[facility] Urea nitrogen [Mass/Vol] 37 mg/dL High 7-25 [facility] Comment on above: Order Comment: Check Pacemaker/AICD Lead Position, Chest X-ray PA \EANDE\ LAT in Dept ;DO NOT lift affected arm above shoulder. S/P pacemaker/ICD implant. Verify lead placement Performed By: #### 0 0071 ####[facility] [place] [address], [facility] CBC COMPLETE BLOOD COUNTon 0 05-05-2022 Erythrocyte distribution width (RBC) [Ratio] 21.2 % High 11.5-15.0 [facility] Comment on above: Order Comment: Unkno wn Performed By: #### 5 0608 ####[facility] Hematocrit (Bld) [Volume fraction] 35.5 % Low 39.0-50.0 [facility] Comment on above: Order Comment: Unkno wn Performed By: #### 5 0608 ####[facility] Hemoglobin (Bld) [Mass/Vol] 10.5 g/dL Low 13.0-17.0 [facility] Comment on above: Order Comment: Unkno wn Performed By: #### 5 0608 ####[facility] MCH (RBC) [Entitic mass] 23.8 pg Low 27.0-33.0 [facility] Comment on above: Order Comment: Unkno wn Performed By: #### 5 0608 ####[facility] MCHC (RBC) [Mass/Vol] 29.6 g/dL Low 32.0-35.0 [facility] Comment on above: Order Comment: Unkno wn Performed By: #### 5 0608 ####[facility] MCV (RBC) [Entitic vol] 80.5 fL Low 82.0-98.0 [facility] Comment on above: Order Comment: Unkno wn Performed By: #### 5 0608 ####[facility] Nucleated RBC/100 WBC (Bld) [Ratio] 0 % Normal 0-0 [facility] Comment on above: Order Comment: Unkno wn Performed By: #### 5 0608 ####[facility] [facility] [address], [facility] PLAT CNT 161 10*3/uL Normal 150-400 [facility] Comment on above: Order Comment: Unkno wn Performed By: #### 5 0608 ####[facility] [facility] [address], [facility] RBC (Bld) [#/Vol] 4.41 10*6/uL Normal 4.20-5.70 [facility] Comment on above: Order Comment: Unkno wn Performed By: #### 5 0608 ####[facility] [facility] [address], [facility] WBC (Bld) [#/Vol] 4.71 10*3/uL Normal 4.00-10.60 [facility] Comment on above: Order Comment: Unkno wn Performed By: #### 5 0608 ####[facility] [facility].[address] BASIC METABOLIC PANELon 08-2 Calcium [Mass/Vol] 8.1 mg/dL Low 8.6-10.3 [facility] Comment on above: Order Comment: No: D o not add to previous draw Performed By: #### 3 2044 #### [facility] [address] [place] [address], [facility] Chloride [Moles/Vol] 97 mmol/L Low 98-107 [facility] Comment on above: Order Comment: No: D o not add to previous draw Performed By: #### 3 2044 #### [facility] [address] [place] [id number], [facility] CO2 [Moles/Vol] 31 mmol/L Normal 21-31 [facility] Comment on above: Order Comment: No: D o not add to previous draw Performed By: #### 3 2044 #### [facility] [address] [place] [address], [facility] Creatinine [Mass/Vol] 1.98 mg/dL High 0.70-1.30 [facility] Comment on above: Order Comment: No: D o not add to previous draw Performed By: #### 3 2044 #### [facility] [address] [place] [address], [facility] EGFR 36 ml/min/1.73sq m Abnormal >60 [facility] Comment on above: Order Comment: No: D o not add to previous draw Result Comment: [facility]'s estimated glomerular filtration rate (eGFR) will [...] [facility] [address] [place] [address], [facility] Glucose [Mass/Vol] 88 mg/dL Normal 70-100 [facility] Comment on above: Order Comment: No: D o not add to previous draw Performed By: #### 3 2044 #### [facility] [address] [place] [address], [facility] Potassium [Moles/Vol] 3.5 mmol/L Normal 3.5-5.1 [facility] Comment on above: Order Comment: No: D o not add to previous draw Performed By: #### 3 2044 #### [facility] [address] [place] [address], [place] Sodium [Moles/Vol] 137 mmol/L Normal 136-145 [facility] Comment on above: Order Comment: No: D o not add to previous draw Performed By: #### 3 2044 #### [facility] [address] Urea nitrogen [Mass/Vol] 35 mg/dL High 7-25 [facility] Comment on above: Order Comment: No: D o not add to previous draw Performed By: #### 3 2044 #### [facility] [address] CBC COMPLETE BLOOD COUNTon - Erythrocyte distribution width (RBC) [Ratio] 21.2 % High 11.5-15.0 [facility] Comment on above: Order Comment: No: D o not add to previous draw Performed By: #### 5 0608 ####[facility] Hematocrit (Bld) [Volume fraction] 34.6 % Low 39.0-50.0 [facility] Comment on above: Order Comment: No: D o not add to previous draw Performed By: #### 5 0608 ####[facility] [facility].[address] Hemoglobin (Bld) [Mass/Vol] 10.2 g/dL Low 13.0-17.0 [facility] Comment on above: Order Comment: No: D o not add to previous draw Performed By: #### 5 0608 ####[facility] [facility].[address] MCH (RBC) [Entitic mass] 23.8 pg Low 27.0-33.0 [facility] Comment on above: Order Comment: No: D o not add to previous draw Performed By: #### 5 0608 ####[facility] MCHC (RBC) [Mass/Vol] 29.5 g/dL Low 32.0-35.0 [facility] Comment on above: Order Comment: No: D o not add to previous draw Performed By: #### 5 0608 ####[facility] [place] [address], [facility] MCV (RBC) [Entitic vol] 80.8 fL Low 82.0-98.0 [facility] Comment on above: Order Comment: No: D o not add to previous draw Performed By: #### 5 0608 ####[facility] [facility] [place] [address], [facility] Nucleated RBC/100 WBC (Bld) [Ratio] 0 % Normal 0-0 [facility] Comment on above: Order Comment: No: D o not add to previous draw Performed By: #### 5 0608 ####[facility] [facility] [address], [facility] PLAT CNT 131 10*3/uL Low 150-400 [facility] Comment on above: Order Comment: No: D o not add to previous draw Performed By: #### 5 0608 ####[facility] [facility] [address], [facility] RBC (Bld) [#/Vol] 4.28 10*6/uL Normal 4.20-5.70 [facility] Comment on above: Order Comment: No: D o not add to previous draw Performed By: #### 5 0608 ####[facility] [facility] [address], [facility] WBC (Bld) [#/Vol] 4.58 10*3/uL Normal 4.00-10.60 [facility] Comment on above: Order Comment: No: D o not add to previous draw Performed By: #### 5 0608 ####[facility] [facility].[address] Cardiovascular Lab Reporton 05-04-2022 Cardiovascular Lab Report [facility] Patient [facility]: [facility] MR #: [id number] Department of Physician: Fidel Scott M.D. Division of Service Date: 05/03/2022 Cardiology Birthdate: 1950 Adult Cardiovascular Room #: [id number] [address] [place] [address] Cardiovascular Laboratory Report FINAL IMPRESSIONS: 1. Moderately [...] over the hub of the previously placed [place] sheath. A Evangelista catheter was advanced through [place] sheath; pressures were measured in the right atrium, right ventricle, pulmonary artery, and pulmonary capillary wedge positions. Oxygen saturations were obtained and cardiac output/cardiac index was calculated using the modified Eliud principle. The Evangelista catheter was removed. The [place] sheath was to be removed with application [...] Iniguez M.D. Date Trans: 05/04/2022 05:38 A/surekha [id number] cc: Li Cintron M.D. Heart Failure/ Transplant Mailstop [address] [place] [address] Normal [facility] BASIC METABOLIC PANELon 08-2 Calcium [Mass/Vol] 7.8 mg/dL Low 8.6-10.3 [facility] Comment on above: Order Comment: Check Pacemaker/AICD Lead Position, Chest X-ray PA \EANDE\ LAT in Dept ;DO NOT lift affected arm above shoulder. S/P pacemaker/ICD implant. Verify lead placement Performed By: #### 4 1000, 88930, 75337 ####[facility] [place] [address], [facility] Chloride [Moles/Vol] 98 mmol/L Normal 98-107 [facility] Comment on above: Order Comment: Check Pacemaker/AICD Lead Position, Chest X-ray PA \EANDE\ LAT in Dept ;DO NOT lift affected arm above shoulder. S/P pacemaker/ICD implant. Verify lead placement Performed By: #### 4 1000, 47043, 89277 ####[facility] [place] [address], [facility] CO2 [Moles/Vol] 31 mmol/L Normal 21-31 [facility] Comment on above: Order Comment: Check Pacemaker/AICD Lead Position, Chest X-ray PA \EANDE\ LAT in Dept ;DO NOT lift affected arm above shoulder. S/P pacemaker/ICD implant. Verify lead placement Performed By: #### 4 1000, 89291, 38615 ####[facility] [place] [address], [facility] Creatinine [Mass/Vol] 2.19 mg/dL High 0.70-1.30 [facility] Comment on above: Order Comment: Check Pacemaker/AICD Lead Position, Chest X-ray PA \EANDE\ LAT in Dept ;DO NOT lift affected arm above shoulder. S/P pacemaker/ICD implant. Verify lead placement Performed By: #### 4 999, 31547, 03826 ####[facility] EGFR 32 ml/min/1.73sq m Abnormal >60 [facility] Comment on above: Order Comment: Check Pacemaker/AICD Lead Position, Chest X-ray PA \EANDE\ LAT in Dept ;DO NOT lift affected arm above shoulder. S/P pacemaker/ICD implant. Verify lead placement Result Comment: [facility]'s estimated glomerular filtration rate (eGFR) will [...] of individuals. Performed By: #### 4 999, 06783, 36854 ####[facility] [facility] [address], [facility] Glucose [Mass/Vol] 95 mg/dL Normal 70-100 [facility] Comment on above: Order Comment: Check Pacemaker/AICD Lead Position, Chest X-ray PA \EANDE\ LAT in Dept ;DO NOT lift affected arm above shoulder. S/P pacemaker/ICD implant. Verify lead placement Performed By: #### 4 999, 88418, 40213 ####[facility] [facility] [address], [facility] Potassium [Moles/Vol] 3.3 mmol/L Low 3.5-5.1 [facility] Comment on above: Order Comment: Check Pacemaker/AICD Lead Position, Chest X-ray PA \EANDE\ LAT in Dept ;DO NOT lift affected arm above shoulder. S/P pacemaker/ICD implant. Verify lead placement Performed By: #### 4 999, 23566, 86500 ####[facility] [facility].[address] Sodium [Moles/Vol] 137 mmol/L Normal 136-145 [facility] Comment on above: Order Comment: Check Pacemaker/AICD Lead Position, Chest X-ray PA \EANDE\ LAT in Dept ;DO NOT lift affected arm above shoulder. S/P pacemaker/ICD implant. Verify lead placement Performed By: #### 4 1000, 05487, 85668 ####[facility] [facility].[address] Urea nitrogen [Mass/Vol] 39 mg/dL High 7-25 [facility] Comment on above: Order Comment: Check Pacemaker/AICD Lead Position, Chest X-ray PA \EANDE\ LAT in Dept ;DO NOT lift affected arm above shoulder. S/P pacemaker/ICD implant. Verify lead placement Performed By: #### 4 999, 57816, 97758 ####[facility] [facility].[address] CBC W/DIFFon 05-03-2022 ABS IMM GRANS 0.0 10*3/uL Normal 0.0-0.2 [facility] [facility] Comment on above: Order Comment: No: D o not add to previous draw Performed By: #### 5 0608 #### [facility] 3000 [facility]. [address] ABS NEUTROPHILS 3.8 10*3/uL Normal 1.6-7.6 [facility] Comment on above: Order Comment: No: D o not add to previous draw Performed By: #### 5 0608 #### [facility] [address] [facility] [place] [address], [facility] Basophils (Bld) [#/Vol] 0.0 10*3/uL Normal 0.0-0.2 [facility] Comment on above: Order Comment: No: D o not add to previous draw Performed By: #### 5 0608 #### [facility] [address] [place] [address], [facility] Basophils/100 WBC (Bld) 0.4 % Normal 0.0-1.0 [facility] Comment on above: Order Comment: No: D o not add to previous draw Performed By: #### 5 0608 #### [facility] [address] [place] [address], [facility] Eosinophils (Bld) [#/Vol] 0.3 10*3/uL Normal 0.0-0.5 [facility] Comment on above: Order Comment: No: D o not add to previous draw Performed By: #### 5 0608 #### [facility] [address] [place] [address], [facility] Eosinophils/100 WBC (Bld) 5.9 % Normal 0.0-6.0 [facility] Comment on above: Order Comment: No: D o not add to previous draw Performed By: #### 5 0608 #### [facility] [address] [place] [address], [facility] Erythrocyte distribution width (RBC) [Ratio] 20.8 % High 11.5-15.0 [facility] Comment on above: Order Comment: No: D o not add to previous draw Performed By: #### 5 0608 #### [facility] [address] [facility] [place] [address], [facility] Hematocrit (Bld) [Volume fraction] 31.0 % Low 39.0-50.0 [facility] Comment on above: Order Comment: No: D o not add to previous draw Performed By: #### 5 0608 #### [facility] [address] [place] [address], [facility] Hemoglobin (Bld) [Mass/Vol] 9.2 g/dL Low 13.0-17.0 [facility] Comment on above: Order Comment: No: D o not add to previous draw Performed By: #### 5 0608 #### [facility] [address] IMMATURE GRANS 0.6 % Normal 0.0-1.0 [facility] Comment on above: Order Comment: No: D o not add to previous draw Performed By: #### 5 0608 #### [facility] [address] [place] [address], [facility] Lymphocytes (Bld) [#/Vol] 0.6 10*3/uL Low 1.2-4.0 [facility] Comment on above: Order Comment: No: D o not add to previous draw Performed By: #### 5 0608 #### [facility] [address] [place] [address], [facility] Lymphocytes/100 WBC (Bld) 11.3 % Low 20.0-45.0 [facility] Comment on above: Order Comment: No: D o not add to previous draw Performed By: #### 5 0608 #### [facility] [address] [place] [address], [facility] MCH (RBC) [Entitic mass] 24.0 pg Low 27.0-33.0 [facility] Comment on above: Order Comment: No: D o not add to previous draw Performed By: #### 5 0608 #### [facility] [address] [place] [address], [facility] MCHC (RBC) [Mass/Vol] 29.7 g/dL Low 32.0-35.0 [facility] Comment on above: Order Comment: No: D o not add to previous draw Performed By: #### 5 0608 #### [facility] [address] [place] [address], [facility] MCV (RBC) [Entitic vol] 80.9 fL Low 82.0-98.0 [facility] Comment on above: Order Comment: No: D o not add to previous draw Performed By: #### 5 0608 #### [facility] 3000 [facility] [place] [address], [facility] Monocytes (Bld) [#/Vol] 0.4 10*3/uL Normal 0.1-1.0 [facility] Comment on above: Order Comment: No: D o not add to previous draw Performed By: #### 5 0608 #### [facility] [address] [place] [address], [facility] MONOS 8.2 % Normal 5.0-12.0 [facility] Comment on above: Order Comment: No: D o not add to previous draw Performed By: #### 5 0608 #### [facility] [address] [place] [address], [facility] Neutrophils/100 WBC (Bld) 73.6 % High 40.0-72.0 [facility] Comment on above: Order Comment: No: D o not add to previous draw Performed By: #### 5 0608 #### [facility] [address] [place] [id number], [facility] Nucleated RBC/100 WBC (Bld) [Ratio] 0 % Normal 0-0 [facility] Comment on above: Order Comment: No: D o not add to previous draw Performed By: #### 5 0608 #### [facility] [address] [place] [id number], [place] PLAT CNT 131 10*3/uL Low 150-400 [facility] Comment on above: Order Comment: No: D o not add to previous draw Performed By: #### 5 0608 #### [facility] [address] [place] [address], [facility] RBC (Bld) [#/Vol] 3.83 10*6/uL Low 4.20-5.70 [facility] Comment on above: Order Comment: No: D o not add to previous draw Performed By: #### 5 0608 #### [facility] [address] [place] [address], [place] WBC (Bld) [#/Vol] 5.22 10*3/uL Normal 4.00-10.60 [facility] Comment on above: Order Comment: No: D o not add to previous draw Performed By: #### 5 0608 #### [facility] [address] [place] [address], [facility] MAGNESIUM BLOODon 05-03-2022 Magnesium [Mass/Vol] 2.0 mg/dL Normal 1.9-2.7 [facility] Comment on above: Order Comment: Check Pacemaker/AICD Lead Position, Chest X-ray PA \EANDE\ LAT in Dept ;DO NOT lift affected arm above shoulder. S/P pacemaker/ICD implant. Verify lead placement Performed By: #### 4 1000, 56014, 65367 ####[facility] [place] [address], [facility] PHOSPHORUS BLOODon Phosphate [Mass/Vol] 2.2 mg/dL Low 2.5-5.0 [facility] Comment on above: Order Comment: Check Pacemaker/AICD Lead Position, Chest X-ray PA \EANDE\ LAT in Dept ;DO NOT lift affected arm above shoulder. S/P pacemaker/ICD implant. Verify lead placement Performed By: #### 4 1000, 56804, 33029 ####[facility] [place] [address], [facility] BASIC METABOLIC PANELon 04-09 Calcium [Mass/Vol] 7.8 mg/dL Low 8.6-10.3 [facility] Comment on above: Order Comment: No: D o not add to previous draw Performed By: #### 5 0103 #### [facility] [address] [place] [address], [facility] Chloride [Moles/Vol] 98 mmol/L Normal 98-107 [facility] Comment on above: Order Comment: No: D o not add to previous draw Performed By: #### 5 0103 #### [facility] [address] [place] [address], [facility] CO2 [Moles/Vol] 29 mmol/L Normal 21-31 [facility] Comment on above: Order Comment: No: D o not add to previous draw Performed By: #### 5 0103 #### [facility] [address] [place] [address], [facility] Creatinine [Mass/Vol] 2.26 mg/dL High 0.70-1.30 [facility] Comment on above: Order Comment: No: D o not add to previous draw Performed By: #### 5 0103 #### [facility] [address] [place] [address], [facility] EGFR 30 ml/min/1.73sq m Abnormal >60 [facility] Comment on above: Order Comment: No: D o not add to previous draw Result Comment: [facility]'s estimated glomerular filtration rate (eGFR) will [...] [facility] [address] [place] [address], [facility] Glucose [Mass/Vol] 91 mg/dL Normal 70-100 [facility] Comment on above: Order Comment: No: D o not add to previous draw Performed By: #### 5 0103 #### [facility] [address] [place] [address], [facility] Potassium [Moles/Vol] 3.5 mmol/L Normal 3.5-5.1 [facility] Comment on above: Order Comment: No: D o not add to previous draw Performed By: #### 5 0103 #### [facility] [address] [place] [address], [facility] Sodium [Moles/Vol] 135 mmol/L Low 136-145 [facility] Comment on above: Order Comment: No: D o not add to previous draw Performed By: #### 5 0103 #### [facility] [address] [place] [id number], [facility] Urea nitrogen [Mass/Vol] 46 mg/dL High 7-25 [facility] Comment on above: Order Comment: No: D o not add to previous draw Performed By: #### 5 0103 #### [facility] [address] [facility] CBC COMPLETE BLOOD COUNTon 0 05-02-2022 Erythrocyte distribution width (RBC) [Ratio] 20.4 % High 11.5-15.0 [facility] Comment on above: Order Comment: No: D o not add to previous draw Performed By: #### 5 0608 #### [facility] [address] [facility] [place] [address], [facility] Hematocrit (Bld) [Volume fraction] 29.9 % Low 39.0-50.0 [facility] Comment on above: Order Comment: No: D o not add to previous draw Performed By: #### 5 0608 #### [facility] [address] [facility] [place] [address], [facility] Hemoglobin (Bld) [Mass/Vol] 8.9 g/dL Low 13.0-17.0 [facility] Comment on above: Order Comment: No: D o not add to previous draw Performed By: #### 5 0608 #### [facility] [address] [place] [id number], [facility] MCH (RBC) [Entitic mass] 24.1 pg Low 27.0-33.0 [facility] Comment on above: Order Comment: No: D o not add to previous draw Performed By: #### 5 0608 #### [facility] [address] [facility] MCHC (RBC) [Mass/Vol] 29.8 g/dL Low 32.0-35.0 [facility] Comment on above: Order Comment: No: D o not add to previous draw Performed By: #### 5 0608 #### [facility] [address] [place] [id number], [facility] MCV (RBC) [Entitic vol] 80.8 fL Low 82.0-98.0 [facility] Comment on above: Order Comment: No: D o not add to previous draw Performed By: #### 5 0608 #### [facility] [address] [place] [address], [facility] Nucleated RBC/100 WBC (Bld) [Ratio] 0 % Normal 0-0 [facility] Comment on above: Order Comment: No: D o not add to previous draw Performed By: #### 5 0608 #### [facility] [address] [facility] [address], [facility] PLAT CNT 130 10*3/uL Low 150-400 [facility] Comment on above: Order Comment: No: D o not add to previous draw Performed By: #### 5 0608 #### [facility] [address] [facility] [address], [facility] RBC (Bld) [#/Vol] 3.70 10*6/uL Low 4.20-5.70 [facility] Comment on above: Order Comment: No: D o not add to previous draw Performed By: #### 5 0608 #### [facility] [address] [facility] [address], [facility] WBC (Bld) [#/Vol] 4.68 10*3/uL Normal 4.00-10.60 [facility] Comment on above: Order Comment: No: D o not add to previous draw Performed By: #### 5 0608 #### [facility] [address] [facility] [place] [address], [facility] MAGNESIUM BLOODon 05-02-2022 Magnesium [Mass/Vol] 2.0 mg/dL Normal 1.9-2.7 [facility] Comment on above: Order Comment: No: D o not add to previous draw Performed By: #### 5 0103 #### [facility] [address] [place] [address], [facility] PHOSPHORUS BLOODon Phosphate [Mass/Vol] 2.5 mg/dL Normal 2.5-5.0 [facility] Comment on above: Order Comment: No: D o not add to previous draw Performed By: #### 5 0103 #### [facility] [address] [place] [address], [facility] BASIC METABOLIC PANELon 04-09 Calcium [Mass/Vol] 8.0 mg/dL Low 8.6-10.3 [facility] Comment on above: Order Comment: Check Pacemaker/AICD Lead Position, Chest X-ray PA \EANDE\ LAT in Dept ;DO NOT lift affected arm above shoulder. S/P pacemaker/ICD implant. Verify lead placement Performed By: #### 4 1000, 72634, 05436 ####[facility] [facility] [address], [facility] Chloride [Moles/Vol] 99 mmol/L Normal 98-107 [facility] Comment on above: Order Comment: Check Pacemaker/AICD Lead Position, Chest X-ray PA \EANDE\ LAT in Dept ;DO NOT lift affected arm above shoulder. S/P pacemaker/ICD implant. Verify lead placement Performed By: #### 4 1000, 63004, 94607 ####[facility] [place] [address], [facility] CO2 [Moles/Vol] 31 mmol/L Normal 21-31 [facility] Comment on above: Order Comment: Check Pacemaker/AICD Lead Position, Chest X-ray PA \EANDE\ LAT in Dept ;DO NOT lift affected arm above shoulder. S/P pacemaker/ICD implant. Verify lead placement Performed By: #### 4 999, 85695, 42274 ####[facility] [facility] [address], [facility] Creatinine [Mass/Vol] 2.48 mg/dL High 0.70-1.30 [facility] Comment on above: Order Comment: Check Pacemaker/AICD Lead Position, Chest X-ray PA \EANDE\ LAT in Dept ;DO NOT lift affected arm above shoulder. S/P pacemaker/ICD implant. Verify lead placement Performed By: #### 4 999, 55809, 33660 ####[facility]3000 [facility].[address] EGFR 27 ml/min/1.73sq m Abnormal >60 [facility] Comment on above: Order Comment: Check Pacemaker/AICD Lead Position, Chest X-ray PA \EANDE\ LAT in Dept ;DO NOT lift affected arm above shoulder. S/P pacemaker/ICD implant. Verify lead placement Result Comment: [facility]'s estimated glomerular filtration rate (eGFR) will [...] of individuals. Performed By: #### 4 999, 27122, 11949 ####[facility] [facility] [address], [facility] Glucose [Mass/Vol] 83 mg/dL Normal 70-100 [facility] Comment on above: Order Comment: Check Pacemaker/AICD Lead Position, Chest X-ray PA \EANDE\ LAT in Dept ;DO NOT lift affected arm above shoulder. S/P pacemaker/ICD implant. Verify lead placement Performed By: #### 4 999, 05471, 29494 ####[facility] Potassium [Moles/Vol] 3.5 mmol/L Normal 3.5-5.1 [facility] Comment on above: Order Comment: Check Pacemaker/AICD Lead Position, Chest X-ray PA \EANDE\ LAT in Dept ;DO NOT lift affected arm above shoulder. S/P pacemaker/ICD implant. Verify lead placement Performed By: #### 4 1000, 89648, 70766 ####[facility] Sodium [Moles/Vol] 137 mmol/L Normal 136-145 [facility] Comment on above: Order Comment: Check Pacemaker/AICD Lead Position, Chest X-ray PA \EANDE\ LAT in Dept ;DO NOT lift affected arm above shoulder. S/P pacemaker/ICD implant. Verify lead placement Performed By: #### 4 1000, 55593, 91256 ####[facility] Urea nitrogen [Mass/Vol] 49 mg/dL High 7-25 [facility] Comment on above: Order Comment: Check Pacemaker/AICD Lead Position, Chest X-ray PA \EANDE\ LAT in Dept ;DO NOT lift affected arm above shoulder. S/P pacemaker/ICD implant. Verify lead placement Performed By: #### 4 1000, 26422, 82003 ####[facility] CBC COMPLETE BLOOD COUNTon 0 - Erythrocyte distribution width (RBC) [Ratio] 20.6 % High 11.5-15.0 [facility] Comment on above: Order Comment: No: D o not add to previous draw Performed By: #### 5 0608 #### [facility] [address] Hematocrit (Bld) [Volume fraction] 28.9 % Low 39.0-50.0 [facility] Comment on above: Order Comment: No: D o not add to previous draw Performed By: #### 5 0608 #### [facility] [address] [facility] [place] [address], [facility] Hemoglobin (Bld) [Mass/Vol] 8.6 g/dL Low 13.0-17.0 [facility] Comment on above: Order Comment: No: D o not add to previous draw Performed By: #### 5 0608 #### [facility] [address] [facility] [place] [address], [facility] MCH (RBC) [Entitic mass] 24.1 pg Low 27.0-33.0 [facility] Comment on above: Order Comment: No: D o not add to previous draw Performed By: #### 5 0608 #### [facility] [address] MCHC (RBC) [Mass/Vol] 29.8 g/dL Low 32.0-35.0 [facility] Comment on above: Order Comment: No: D o not add to previous draw Performed By: #### 5 0608 #### [facility] [address] [facility] [address], [facility] MCV (RBC) [Entitic vol] 81.0 fL Low 82.0-98.0 [facility] Comment on above: Order Comment: No: D o not add to previous draw Performed By: #### 5 0608 #### [facility] 3000 [facility]. [address] Nucleated RBC/100 WBC (Bld) [Ratio] 0 % Normal 0-0 [facility] Comment on above: Order Comment: No: D o not add to previous draw Performed By: #### 5 0608 #### [facility] [address] [place] [address], [facility] PLAT CNT 130 10*3/uL Low 150-400 [facility] Comment on above: Order Comment: No: D o not add to previous draw Performed By: #### 5 0608 #### [facility] [address] [place] [address], [facility] RBC (Bld) [#/Vol] 3.57 10*6/uL Low 4.20-5.70 [facility] Comment on above: Order Comment: No: D o not add to previous draw Performed By: #### 5 0608 #### [facility] [address] [place] [address], [facility] WBC (Bld) [#/Vol] 4.33 10*3/uL Normal 4.00-10.60 [facility] Comment on above: Order Comment: No: D o not add to previous draw Performed By: #### 5 0608 #### [facility] [address] [place] [address], [facility] COOXIMETRYon 05-01-2022 COHB 2 % Normal [facility] Comment on above: Performed By: #### 7 0207 #### [facility] [address] [place] [address], [facility] METHB 1 % Normal [facility] Comment on above: Performed By: #### 7 0207 #### [facility] [address] [place] [address], [facility] Oxygen saturation in Blood 71.0 % Normal 65.0-75.0 [facility] Comment on above: Performed By: #### 7 0207 #### [facility] [address] [place] [address], [facility] THB 9.0 g/dL Normal [facility] Comment on above: Performed By: #### 7 0207 #### [facility] [address] [facility] Francisco. [place] [id number], [facility] MAGNESIUM BLOODon 05-01-2022 Magnesium [Mass/Vol] 2.1 mg/dL Normal 1.9-2.7 [facility] Comment on above: Order Comment: Check Pacemaker/AICD Lead Position, Chest X-ray PA \EANDE\ LAT in Dept ;DO NOT lift affected arm above shoulder. S/P pacemaker/ICD implant. Verify lead placement Performed By: #### 4 1000, 20597, 87582 ####[facility] PHOSPHORUS BLOODon Phosphate [Mass/Vol] 3.6 mg/dL Normal 2.5-5.0 [facility] Comment on above: Order Comment: Check Pacemaker/AICD Lead Position, Chest X-ray PA \EANDE\ LAT in Dept ;DO NOT lift affected arm above shoulder. S/P pacemaker/ICD implant. Verify lead placement Performed By: #### 4 999, 69915, 23839 ####[facility] PORTABLE CHEST 1 VIEWon 04-09 PORTABLE CHEST 1 VIEW [facility] Department of Radiology [address] [place] [address] Patient Name: MAN PATEL : 1950 Sex: M Age: Race: White Pt. Location: [place] [address] Patient Status: I Ordered Date: 05/01/2022 10:35:00 [...] obtained. COMPARISON: Chest radiograph dated 08/01/2021 FINDINGS: [place] catheter placed via right internal jugular approach has tip in the right pulmonary artery. Dual-chamber pacemaker placed left subclavian approach. Moderate cardiomegaly. Moderate CHF. No pleural effusion. No pneumothorax. IMPRESSION: Moderate cardiomegaly. Moderate CHF. Electronically signed: Aldo Montana. Transcribed by: [email or web address], User Resident: Electronically Signed by: ALDO MONTANA @ 05/01/2022 11:16 AM Normal [facility] Comment on above: Order Comment: Check Line Position *BLOOD CULTUREon 04-30-2022 *BLOOD CULTURE Clinical Report: (D) Specimen: BLOOD CULTURE Collected: 04/29/2022 23:47 Status: Final Last Updated: 05/05/2022 06:59 CULT RES (Final) No Growth Day 5 Normal [facility] Comment on above: Performed By: #### 3 0313 ####[facility] *BLOOD CULTURE Clinical Report: (D) Specimen: BLOOD CULTURE Collected: 04/29/2022 23:43 Status: Final Last Updated: 05/05/2022 06:59 CULT RES (Final) No Growth Day 5 Normal [facility] Comment on above: Performed By: #### 3 0313 #### [facility] [address] BASIC METABOLIC PANELon 04-09 Calcium [Mass/Vol] 8.0 mg/dL Low 8.6-10.3 [facility] Comment on above: Order Comment: No: D o not add to previous draw Performed By: #### 4 5506, 28286, 55985, 34026 ####[facility]3000 [facility] [place] [address], [facility] Chloride [Moles/Vol] 100 mmol/L Normal 98-107 [facility] Comment on above: Order Comment: No: D o not add to previous draw Performed By: #### 4 5506, 35889, 25449, 06370 ####[facility]3000 [facility] [place] [address], [facility] CO2 [Moles/Vol] 31 mmol/L Normal 21-31 [facility] Comment on above: Order Comment: No: D o not add to previous draw Performed By: #### 4 5506, 12348, 70143, 03222 ####[facility] [place] [address], [facility] Creatinine [Mass/Vol] 2.53 mg/dL High 0.70-1.30 [facility] Comment on above: Order Comment: No: D o not add to previous draw Performed By: #### 4 6066, 78646, 26786, 21386 ####[facility] EGFR 27 ml/min/1.73sq m Abnormal >60 [facility] Comment on above: Order Comment: No: D o not add to previous draw Result Comment: [facility]'s estimated glomerular filtration rate (eGFR) will [...] of individuals. Performed By: #### 4 5506, 00475, 46967, 36126 ####[facility] [facility] [place] [address], [facility] Glucose [Mass/Vol] 94 mg/dL Normal 70-100 [facility] Comment on above: Order Comment: No: D o not add to previous draw Performed By: #### 4 5506, 11596, 99878, 54288 ####[facility] [place] [address], [facility] Potassium [Moles/Vol] 3.5 mmol/L Normal 3.5-5.1 [facility] Comment on above: Order Comment: No: D o not add to previous draw Performed By: #### 4 5506, 65393, 88590, 22424 ####[facility] [place] [address], [place] Sodium [Moles/Vol] 139 mmol/L Normal 136-145 [facility] Comment on above: Order Comment: No: D o not add to previous draw Performed By: #### 4 5506, 85495, 10274, 46438 ####[facility] [place] [address], [facility] Urea nitrogen [Mass/Vol] 49 mg/dL High 7-25 [facility] Comment on above: Order Comment: No: D o not add to previous draw Performed By: #### 4 5506, 63381, 14799, 16744 ####[facility] [place] [address], [facility] CBC COMPLETE BLOOD COUNTon 0 8- Erythrocyte distribution width (RBC) [Ratio] 20.8 % High 11.5-15.0 [facility] Comment on above: Order Comment: No: D o not add to previous draw Performed By: #### 5 0608 #### [facility] [address] [place] [address], [place] Hematocrit (Bld) [Volume fraction] 28.3 % Low 39.0-50.0 [facility] Comment on above: Order Comment: No: D o not add to previous draw Performed By: #### 5 0608 #### [facility] [address] [place] [address], [place] Hemoglobin (Bld) [Mass/Vol] 8.5 g/dL Low 13.0-17.0 [facility] Comment on above: Order Comment: No: D o not add to previous draw Performed By: #### 5 0608 #### [facility] [address] [place] [id number], [facility] MCH (RBC) [Entitic mass] 24.3 pg Low 27.0-33.0 [facility] Comment on above: Order Comment: No: D o not add to previous draw Performed By: #### 5 0608 #### [facility] [address] [place] [address], [facility] MCHC (RBC) [Mass/Vol] 30.0 g/dL Low 32.0-35.0 [facility] Comment on above: Order Comment: No: D o not add to previous draw Performed By: #### 5 0608 #### [facility] [address] [place] [address], [facility] MCV (RBC) [Entitic vol] 80.9 fL Low 82.0-98.0 [facility] Comment on above: Order Comment: No: D o not add to previous draw Performed By: #### 5 0608 #### [facility] [address] [place] [address], [facility] Nucleated RBC/100 WBC (Bld) [Ratio] 0 % Normal 0-0 [facility] Comment on above: Order Comment: No: D o not add to previous draw Performed By: #### 5 0608 #### [facility] [address] [place] [address], [facility] PLAT CNT 139 10*3/uL Low 150-400 [facility] Comment on above: Order Comment: No: D o not add to previous draw Performed By: #### 5 0608 #### [facility] [address] [place] [address], [facility] RBC (Bld) [#/Vol] 3.50 10*6/uL Low 4.20-5.70 [facility] Comment on above: Order Comment: No: D o not add to previous draw Performed By: #### 5 0608 #### [facility] [address] [place] [address], [facility] WBC (Bld) [#/Vol] 4.28 10*3/uL Normal 4.00-10.60 [facility] Comment on above: Order Comment: No: D o not add to previous draw Performed By: #### 5 0608 #### [facility] [address] [place] [address], [facility] COOXIMETRYon 04-30-2022 COHB 2 % Normal [facility] Comment on above: Performed By: #### 3 0313 #### [facility] [address] [place] [address], [facility] METHB 1 % Normal [facility] Comment on above: Performed By: #### 3 0313 #### [facility] [address] [place] [address], [facility] Oxygen saturation in Blood 69.0 % Normal 65.0-75.0 [facility] Comment on above: Performed By: #### 3 0313 #### [facility] [address] [place] [address], [facility] THB 12.0 g/dL Normal [facility] Comment on above: Performed By: #### 3 0313 #### [facility] [address] [place] [address], [facility] Cardiovascular Lab Reporton 04-30-2022 Cardiovascular Lab Report [facility] MR #: [id number] Department of Physician: Fidel Flowers M.D. Division of Service Date: 04/29/2022 Cardiology Birthdate: 1950 Adult Cardiovascular Room #: KASANDRA [id number] [facility] [address] [place], [place] [address] Cardiovascular Laboratory Report CLINICAL PRESENTATION: The patient is a 72-year-old male with past medical history significant for CAD, status post CABG, heart failure with EF 40%, CKD with acute kidney injury, atrial fibrillation on Eliquis, pacemaker, and hypertension. The patient was admitted with shortness of breath and lower extremity edema concerning for nsaid-uv-lptxrcy systolic heart failure. He has worsening renal [...] Given worsening renal function, we will place [place]-Eleazar catheter for invasive hemodynamic monitoring in the ICU. The patient will likely require milrinone inotrope therapy. 2. Remainder of plan per Cardiology Service. 3. There was tracing of severe V-waves, which could be seen in mitral regurgitation. Correlation with echocardiogram is recommended. PROCEDURES: Right heart catheterization, ultrasound guidance for vascular access. INDICATION: [id number] systolic heart failure. PROCEDURE DESCRIPTION: The patient [...] ultrasound guidance and micropuncture access technique, a 6-Haitian sheath was placed in the right internal [...] renal function, we agreed to place a [place]-Eleazar catheter for monitoring in the ICU. Next, using a wire, I exchanged the sheath to an 8-Haitian Cordis sheath. This was sutured to the skin. Next, I advanced Alarcon [employer]READ[employer] OPERATOR [place]-Eleazar catheter to the pulmonary artery position. The [...] Red M.D. Date Trans: 04/30/2022 10:29 A/surekha [id number] cc: Li Cintron M.D. Heart Failure/ Transplant Mailstop [address] [place] [address] Normal [facility] MAGNESIUM BLOODon 04-30-2022 Magnesium [Mass/Vol] 2.3 mg/dL Normal 1.9-2.7 [facility] Comment on above: Order Comment: No: D o not add to previous draw Performed By: #### 4 5506, 35978, 02802, 85737 ####[facility] [facility] [address], [facility] PHOSPHORUS BLOODon 2 Phosphate [Mass/Vol] 4.1 mg/dL Normal 2.5-5.0 [facility] Comment on above: Performed By: #### 4 5506, 70141, 71475, 06222 ####[facility] [facility] [place] [address], [facility] URIC ACID BLOODon 04-30-2022 Urate [Mass/Vol] 13.5 mg/dL High 4.4-7.6 [facility] Comment on above: Performed By: #### 4 5506, 30336, 98027, 52436 ####[facility] [place] [address], [facility] BASIC METABOLIC PANELon 08-2 -2021 Calcium [Mass/Vol] 8.4 mg/dL Low 8.6-10.3 [facility] Comment on above: Order Comment: No: D o not add to previous draw Performed By: #### 3 0313 #### [facility] [address] [place] [address], [facility] Chloride [Moles/Vol] 100 mmol/L Normal 98-107 [facility] Comment on above: Order Comment: No: D o not add to previous draw Performed By: #### 3 0313 #### [facility] [address] [place] [address], [facility] CO2 [Moles/Vol] 30 mmol/L Normal 21-31 [facility] Comment on above: Order Comment: No: D o not add to previous draw Performed By: #### 3 0313 #### [facility] [address] [place] [address], [facility] Creatinine [Mass/Vol] 2.09 mg/dL High 0.70-1.30 [facility] Comment on above: Order Comment: No: D o not add to previous draw Performed By: #### 3 0313 #### [facility] [address] [place] [address], [facility] EGFR 33 ml/min/1.73sq m Abnormal >60 [facility] Comment on above: Order Comment: No: D o not add to previous draw Result Comment: [facility]'s estimated glomerular filtration rate (eGFR) will [...] [facility] [address] [place] [address], [facility] Glucose [Mass/Vol] 96 mg/dL Normal 70-100 [facility] Comment on above: Order Comment: No: D o not add to previous draw Performed By: #### 3 0313 #### [facility] [address] [place] [address], [place] Potassium [Moles/Vol] 4.0 mmol/L Normal 3.5-5.1 [facility] Comment on above: Order Comment: No: D o not add to previous draw Performed By: #### 3 0313 #### [facility] [address] [place] [address], [place] Sodium [Moles/Vol] 138 mmol/L Normal 136-145 [facility] Comment on above: Order Comment: No: D o not add to previous draw Performed By: #### 3 0313 #### [facility] [address] [place] [address], [facility] Urea nitrogen [Mass/Vol] 48 mg/dL High 7-25 [facility] Comment on above: Order Comment: No: D o not add to previous draw Performed By: #### 3 0313 #### [facility] [address] [place] [address], [place] CBC COMPLETE BLOOD COUNTon 0 8- Erythrocyte distribution width (RBC) [Ratio] 20.6 % High 11.5-15.0 [facility] Comment on above: Order Comment: No: D o not add to previous draw Performed By: #### 5 0608 ####[facility] [place] [address], [place] Hematocrit (Bld) [Volume fraction] 31.0 % Low 39.0-50.0 [facility] Comment on above: Order Comment: No: D o not add to previous draw Performed By: #### 5 0608 ####[facility] [facility].[address] Hemoglobin (Bld) [Mass/Vol] 8.9 g/dL Low 13.0-17.0 [facility] Comment on above: Order Comment: No: D o not add to previous draw Performed By: #### 5 0608 ####[facility] [facility].[address] MCH (RBC) [Entitic mass] 23.1 pg Low 27.0-33.0 [facility] Comment on above: Order Comment: No: D o not add to previous draw Performed By: #### 5 0608 ####[facility] MCHC (RBC) [Mass/Vol] 28.7 g/dL Low 32.0-35.0 [facility] Comment on above: Order Comment: No: D o not add to previous draw Performed By: #### 5 0608 ####[facility] [facility].[address] MCV (RBC) [Entitic vol] 80.5 fL Low 82.0-98.0 [facility] Comment on above: Order Comment: No: D o not add to previous draw Performed By: #### 5 0608 ####[facility] [facility].[address] Nucleated RBC/100 WBC (Bld) [Ratio] 0 % Normal 0-0 [facility] Comment on above: Order Comment: No: D o not add to previous draw Performed By: #### 5 0608 ####[place] [address], [facility] PLAT CNT 145 10*3/uL Low 150-400 [facility] Comment on above: Order Comment: No: D o not add to previous draw Performed By: #### 5 0608 ####[facility] [place] [address], [facility] RBC (Bld) [#/Vol] 3.85 10*6/uL Low 4.20-5.70 [facility] Comment on above: Order Comment: No: D o not add to previous draw Performed By: #### 5 0608 ####[facility] [place] [address], [facility] WBC (Bld) [#/Vol] 5.00 10*3/uL Normal 4.00-10.60 [facility] Comment on above: Order Comment: No: D o not add to previous draw Performed By: #### 5 0608 ####[facility] [facility] [place] [address], [facility] COOXIMETRYon 04-29-2022 COHB 3 % Normal [facility] Comment on above: Performed By: #### 5 0103 #### [facility] [address] [facility] [place] [address], [facility] METHB 1 % Normal [facility] Comment on above: Performed By: #### 5 0103 #### [facility] [address] [place] [address], [facility] Oxygen saturation in Blood 74.0 % Normal 65.0-75.0 [facility] Comment on above: Performed By: #### 5 0103 #### [facility] [address] [place] [address], [facility] THB 8.4 g/dL Normal [facility] Comment on above: Performed By: #### 5 0103 #### [facility] [address] [place] [address], [facility] MAGNESIUM BLOODon 04-29-2022 Magnesium [Mass/Vol] 2.3 mg/dL Normal 1.9-2.7 [facility] Comment on above: Order Comment: No: D o not add to previous draw Performed By: #### 3 0313 #### [facility] [address] [place] [address], [facility] BASIC METABOLIC PANELon 08-2 Calcium [Mass/Vol] 8.3 mg/dL Low 8.6-10.3 [facility] Comment on above: Order Comment: No: D o not add to previous draw Performed By: #### 0 0071, 62462, 07629 ####[facility] [place] [address], [facility] Chloride [Moles/Vol] 100 mmol/L Normal 98-107 [facility] Comment on above: Order Comment: No: D o not add to previous draw Performed By: #### 0 0071, 08585, 15701 ####[facility] [place] [address], [facility] CO2 [Moles/Vol] 29 mmol/L Normal 21-31 [facility] Comment on above: Order Comment: No: D o not add to previous draw Performed By: #### 0 0071, 68770, 66091 ####[facility] [place] [address], [facility] Creatinine [Mass/Vol] 2.51 mg/dL High 0.70-1.30 [facility] Comment on above: Order Comment: No: D o not add to previous draw Performed By: #### 0 0071, 11051, 57191 ####[facility] [facility] [place] [address], [facility] EGFR 27 ml/min/1.73sq m Abnormal >60 [facility] Comment on above: Order Comment: No: D o not add to previous draw Result Comment: [facility]'s estimated glomerular filtration rate (eGFR) will [...] of individuals. Performed By: #### 0 007, 63341, 78118 ####[facility] [facility] [address], [facility] Glucose [Mass/Vol] 98 mg/dL Normal 70-100 [facility] Comment on above: Order Comment: No: D o not add to previous draw Performed By: #### 0 70, , 59772 ####[facility] [place] [address], [facility] Potassium [Moles/Vol] 3.9 mmol/L Normal 3.5-5.1 [facility] Comment on above: Order Comment: No: D o not add to previous draw Performed By: #### 0 70, , 00099 ####[facility] [place] [address], [facility] Sodium [Moles/Vol] 138 mmol/L Normal 136-145 [facility] Comment on above: Order Comment: No: D o not add to previous draw Performed By: #### 0 007, , 74878 ####[facility] [place] [address], [facility] Urea nitrogen [Mass/Vol] 55 mg/dL High 7-25 [facility] Comment on above: Order Comment: No: D o not add to previous draw Performed By: #### 0 007, , 97623 ####[facility] [place] [address], [place] CBC COMPLETE BLOOD COUNTon 0 - Erythrocyte distribution width (RBC) [Ratio] 20.2 % High 11.5-15.0 [facility] Comment on above: Order Comment: No: D o not add to previous draw Performed By: #### 5 0608 ####[facility] Hematocrit (Bld) [Volume fraction] 28.9 % Low 39.0-50.0 [facility] Comment on above: Order Comment: No: D o not add to previous draw Performed By: #### 5 0608 ####[facility] Hemoglobin (Bld) [Mass/Vol] 8.7 g/dL Low 13.0-17.0 [facility] Comment on above: Order Comment: No: D o not add to previous draw Performed By: #### 5 0608 ####[address] MCH (RBC) [Entitic mass] 24.0 pg Low 27.0-33.0 [facility] Comment on above: Order Comment: No: D o not add to previous draw Performed By: #### 5 0608 ####[address] MCHC (RBC) [Mass/Vol] 30.1 g/dL Low 32.0-35.0 [facility] Comment on above: Order Comment: No: D o not add to previous draw Performed By: #### 5 0608 ####[place] [id number] [address] MCV (RBC) [Entitic vol] 79.6 fL Low 82.0-98.0 [facility] Comment on above: Order Comment: No: D o not add to previous draw Performed By: #### 5 0608 ####[address] Nucleated RBC/100 WBC (Bld) [Ratio] 0 % Normal 0-0 [facility] Comment on above: Order Comment: No: D o not add to previous draw Performed By: #### 5 0608 ####[facility] PLAT CNT 162 10*3/uL Normal 150-400 [facility] Comment on above: Order Comment: No: D o not add to previous draw Performed By: #### 5 0608 ####[facility] RBC (Bld) [#/Vol] 3.63 10*6/uL Low 4.20-5.70 [facility] Comment on above: Order Comment: No: D o not add to previous draw Performed By: #### 5 0608 ####[facility] WBC (Bld) [#/Vol] 6.21 10*3/uL Normal 4.00-10.60 [facility] Comment on above: Order Comment: No: D o not add to previous draw Performed By: #### 5 0608 ####[facility] LIPID PROFILEon 04-28-2022 Cholesterol [Mass/Vol] 92 mg/dL Low 120-200 Th e [facility] Comment on above: Order Comment: Yes: Add to Previous draw if able Result Comment: CHOL ESTEROL REFERENCE RANGE: 20 YEARS AND OLDER CARDIOVASCULAR RISK Less than 200 mg/dl Low Risk 200 to 239 mg/dl Borderline Risk 240 mg/dl and greater High Risk Performed By: #### 0 0071, 77814, 63729 ####[facility] Cholesterol in HDL [Mass/Vol] 37 mg/dL Normal 23-92 The [facility] Comment on above: Order Comment: Yes: Add to Previous draw if able Result Comment: Slig ht variation in normal range could be due to gender and/or age. HDL CHOLESTEROL REFERENCE RANGE: 20 years and older Cardiovascular Risk > or =60 mg/dL Desirable 40 TO 59 mg/dL Low Risk <40 mg/dL High Risk Performed By: #### 0 0071, 41699, 24889 ####[facility] [place] [address], [facility] Cholesterol in LDL [Mass/Vol] 47 mg/dL Normal 0-130 The [facility] Comment on above: Order Comment: Yes: Add to Previous draw if able Result Comment: LDL IS A CALCULATION LDL IS ONLY VALID IF THE TRIG IS LESS THAN 400. Performed By: #### 0 0071, 81113, 66050 ####[facility] [place] [address], [facility] Cholesterol.total/Chol esterol in HDL [Mass ratio] 2.5 {ratio} Normal .0-4.5 The [facility] Comment on above: Order Comment: Yes: Add to Previous draw if able Performed By: #### 0 0071, 89572, 25367 ####[facility] [place] [address], [facility] NON-HDL CHOLESTEROL 55 mg/dL Normal [facility] Comment on above: Order Comment: Yes: Add to Previous draw if able Performed By: #### 0 0071, 24079, 11229 ####[facility] [place] [address], [facility] Triglyceride [Mass/Vol] 40 mg/dL Normal 40-149 The [facility] Comment on above: Order Comment: Yes: Add to Previous draw if able Result Comment: TRIG LYCERIDE REFERENCE RANGE: 20 YEARS AND OLDER CARDIOVASCULAR RISK LESS THAN 150 mg/dl LOW RISK 150 TO 199 mg/dl BORDERLINE RISK 200 mg/dl AND GREATER HIGH RISK Performed By: #### 0 0071, 03625, 08846 ####[facility] [place] [address], [place] VLDL CHOL 8 mg/dL Normal 0-40 The [facility] Comment on above: Order Comment: Yes: Add to Previous draw if able Performed By: #### 0 0071, 57406, 39970 ####[facility] [place] [address], [facility] MAGNESIUM BLOODon 04-28-2022 Magnesium [Mass/Vol] 2.4 mg/dL Normal 1.9-2.7 The [facility] Comment on above: Order Comment: No: D o not add to previous draw Performed By: #### 0 0071, 42616, 13383 ####[facility] [place] [address], [facility] BASIC METABOLIC PANELon 04-09 Calcium [Mass/Vol] 8.4 mg/dL Low 8.6-10.3 [facility] Comment on above: Order Comment: No: D o not add to previous draw Performed By: #### 7 0207 #### [facility] [address] [place] [address], [place] Chloride [Moles/Vol] 100 mmol/L Normal 98-107 [facility] Comment on above: Order Comment: No: D o not add to previous draw Performed By: #### 7 0207 #### [facility] [address] [place] [address], [place] CO2 [Moles/Vol] 27 mmol/L Normal 21-31 [facility] Comment on above: Order Comment: No: D o not add to previous draw Performed By: #### 7 0207 #### [facility] [address] [place] [address], [place] Creatinine [Mass/Vol] 2.46 mg/dL High 0.70-1.30 The [facility] Comment on above: Order Comment: No: D o not add to previous draw Performed By: #### 7 0207 #### [facility] [address] [place] [address], [place] EGFR 27 ml/min/1.73sq m Abnormal >60 The [facility] Comment on above: Order Comment: No: D o not add to previous draw Result Comment: The [facility]'s estimated glomerular filtration rate (eGFR) will [...] [facility] [address] [place] [address], [facility] Glucose [Mass/Vol] 96 mg/dL Normal 70-100 The [facility] Comment on above: Order Comment: No: D o not add to previous draw Performed By: #### 7 0207 #### [facility] [address] [place] [address], [place] Potassium [Moles/Vol] 3.8 mmol/L Normal 3.5-5.1 [facility] Comment on above: Order Comment: No: D o not add to previous draw Performed By: #### 7 0207 #### [facility] [address] [place] [address], [place] Sodium [Moles/Vol] 136 mmol/L Normal 136-145 The [facility] Comment on above: Order Comment: No: D o not add to previous draw Performed By: #### 7 0207 #### [facility] [address] [place] [address], [place] Urea nitrogen [Mass/Vol] 57 mg/dL High 7-25 [facility] Comment on above: Order Comment: No: D o not add to previous draw Performed By: #### 7 7 #### [facility] [address] [place] [address], [place] BASIC METABOLIC PANELon 08-1 Calcium [Mass/Vol] 8.7 mg/dL Normal 8.6-10.3 [facility] Comment on above: Order Comment: No: D o not add to previous draw Performed By: #### 3 0313 #### [facility] [address] [place] [address], [facility] Chloride [Moles/Vol] 100 mmol/L Normal 98-107 The [facility] Comment on above: Order Comment: No: D o not add to previous draw Performed By: #### 3 0313 #### [facility] [address] [place] [address], [facility] CO2 [Moles/Vol] 26 mmol/L Normal 21-31 The [facility] Comment on above: Order Comment: No: D o not add to previous draw Performed By: #### 3 0313 #### [facility] [address] [place] [address], [facility] Creatinine [Mass/Vol] 2.63 mg/dL High 0.70-1.30 [facility] Comment on above: Order Comment: No: D o not add to previous draw Performed By: #### 3 0313 #### [facility] [address] [place] [address], [facility] EGFR 25 ml/min/1.73sq m Abnormal >60 The [facility] Comment on above: Order Comment: No: D o not add to previous draw Result Comment: [facility]'s estimated glomerular filtration rate (eGFR) will [...] [facility] [address] [place] [address], [facility] Glucose [Mass/Vol] 101 mg/dL High 70-100 The [facility] Comment on above: Order Comment: No: D o not add to previous draw Performed By: #### 3 0313 #### [facility] [address] [place] [address], [facility] Potassium [Moles/Vol] 4.3 mmol/L Normal 3.5-5.1 [facility] Comment on above: Order Comment: No: D o not add to previous draw Performed By: #### 3 0313 #### [facility] [address] [facility] [address], [facility] Sodium [Moles/Vol] 136 mmol/L Normal 136-145 [facility] Comment on above: Order Comment: No: D o not add to previous draw Performed By: #### 3 0313 #### [facility] [address] [facility] Urea nitrogen [Mass/Vol] 57 mg/dL High 7-25 [facility] Comment on above: Order Comment: No: D o not add to previous draw Performed By: #### 3 0313 #### [facility] [address] [facility] [place] [address], [facility] CBC W/DIFFon 04-26-2022 ABS IMM GRANS 0.0 10*3/uL Normal 0.0-0.2 [facility] Comment on above: Order Comment: No: D o not add to previous draw Performed By: #### 5 0103 #### [facility] [address] [facility] [place] [place] [address], [facility] ABS NEUTROPHILS 5.2 10*3/uL Normal 1.6-7.6 [facility] Comment on above: Order Comment: No: D o not add to previous draw Performed By: #### 5 0103 #### [facility] [address] [place] [address], [facility] Basophils (Bld) [#/Vol] 0.0 10*3/uL Normal 0.0-0.2 [facility] Comment on above: Order Comment: No: D o not add to previous draw Performed By: #### 5 0103 #### [facility] [address] [place] [address], [facility] Basophils/100 WBC (Bld) 0.6 % Normal 0.0-1.0 [facility] Comment on above: Order Comment: No: D o not add to previous draw Performed By: #### 5 0103 #### [facility] [address] [place] [address], [facility] Eosinophils (Bld) [#/Vol] 0.2 10*3/uL Normal 0.0-0.5 [facility] Comment on above: Order Comment: No: D o not add to previous draw Performed By: #### 5 0103 #### [facility] [address] [place] [address], [facility] Eosinophils/100 WBC (Bld) 3.4 % Normal 0.0-6.0 [facility] Comment on above: Order Comment: No: D o not add to previous draw Performed By: #### 5 0103 #### [facility] [address] [place] [id number], [facility] Erythrocyte distribution width (RBC) [Ratio] 19.9 % High 11.5-15.0 [facility] Comment on above: Order Comment: No: D o not add to previous draw Performed By: #### 5 0103 #### [facility] [address] [place] [address], [place] Hematocrit (Bld) [Volume fraction] 30.2 % Low 39.0-50.0 [facility] Comment on above: Order Comment: No: D o not add to previous draw Performed By: #### 5 0103 #### [facility] [address] [place] [address], [facility] Hemoglobin (Bld) [Mass/Vol] 9.0 g/dL Low 13.0-17.0 [facility] Comment on above: Order Comment: No: D o not add to previous draw Performed By: #### 5 0103 #### [facility] [address] [place] [address], [facility] IMMATURE GRANS 0.2 % Normal 0.0-1.0 [facility] Comment on above: Order Comment: No: D o not add to previous draw Performed By: #### 5 0103 #### [facility] [address] [place] [address], [facility] Lymphocytes (Bld) [#/Vol] 0.4 10*3/uL Low 1.2-4.0 [facility] Comment on above: Order Comment: No: D o not add to previous draw Performed By: #### 5 0103 #### [facility] [address] [place] [address], [facility] Lymphocytes/100 WBC (Bld) 6.6 % Low 20.0-45.0 [facility] Comment on above: Order Comment: No: D o not add to previous draw Performed By: #### 5 0103 #### [facility] [address] [place] [id number], [facility] MCH (RBC) [Entitic mass] 23.4 pg Low 27.0-33.0 [facility] Comment on above: Order Comment: No: D o not add to previous draw Performed By: #### 5 0103 #### [facility] [address] [place] [address], [facility] MCHC (RBC) [Mass/Vol] 29.8 g/dL Low 32.0-35.0 [facility] Comment on above: Order Comment: No: D o not add to previous draw Performed By: #### 5 0103 #### [facility] [address] [place] [address], [facility] MCV (RBC) [Entitic vol] 78.4 fL Low 82.0-98.0 [facility] Comment on above: Order Comment: No: D o not add to previous draw Performed By: #### 5 0103 #### [facility] [address] [place] [address], [facility] Monocytes (Bld) [#/Vol] 0.7 10*3/uL Normal 0.1-1.0 [facility] Comment on above: Order Comment: No: D o not add to previous draw Performed By: #### 5 0103 #### [facility] [address] [facility] [place] [address], [facility] MONOS 10.3 % Normal 5.0-12.0 [facility] Comment on above: Order Comment: No: D o not add to previous draw Performed By: #### 5 3 #### [facility] [address] [facility] [address], [facility] Neutrophils/100 WBC (Bld) 78.9 % High 40.0-72.0 [facility] Comment on above: Order Comment: No: D o not add to previous draw Performed By: #### 5 0103 #### [facility] [address] [facility] [address], [facility] Nucleated RBC/100 WBC (Bld) [Ratio] 0 % Normal 0-0 [facility] Comment on above: Order Comment: No: D o not add to previous draw Performed By: #### 5 0103 #### [facility] [address] [facility] [address], [facility] PLAT CNT 196 10*3/uL Normal 150-400 [facility] Comment on above: Order Comment: No: D o not add to previous draw Performed By: #### 5 0103 #### [facility] [address] [place] [address], [facility] RBC (Bld) [#/Vol] 3.85 10*6/uL Low 4.20-5.70 [facility] Comment on above: Order Comment: No: D o not add to previous draw Performed By: #### 5 0103 #### [facility] [address] [place] [address], [facility] WBC (Bld) [#/Vol] 6.52 10*3/uL Normal 4.00-10.60 [facility] Comment on above: Order Comment: No: D o not add to previous draw Performed By: #### 5 0103 #### [facility] [address] [place] [address], [facility] HEMOGLOBIN A1Con 04-26-2022 Glucose [Moles/Vol] 111 mmol/L Normal [facility] Comment on above: Order Comment: Check Pacemaker/AICD Lead Position, Chest X-ray PA \EANDE\ LAT in Dept ;DO NOT lift affected arm above shoulder. S/P pacemaker/ICD implant. Verify lead placement Performed By: #### 3 1791 ####[facility] [facility] [address], [facility] HbA1c (Bld) [Mass fraction] 5.5 % Normal 4.0-6.0 [facility] Comment on above: Order Comment: Check Pacemaker/AICD Lead Position, Chest X-ray PA \EANDE\ LAT in Dept ;DO NOT lift affected arm above shoulder. S/P pacemaker/ICD implant. Verify lead placement Performed By: #### 3 1791 ####[facility] [facility] [place] [address], [facility] MAGNESIUM BLOODon 04-26-2022 Magnesium [Mass/Vol] 2.6 mg/dL Normal 1.9-2.7 [facility] Comment on above: Order Comment: No: D o not add to previous draw Performed By: #### 3 0313 #### [facility] [address] [place] [address], [facility] APTTon 04-25-2022 aPTT Coag (Bld) [Time] 49.8 s High 25.0-35.0 Th e [facility] Comment on above: Order Comment: No: [...] [facility] [address] [place] [address], [facility] BASIC METABOLIC PANELon 08- Calcium [Mass/Vol] 8.8 mg/dL Normal 8.6-10.3 [facility] Comment on above: Order Comment: No: D o not add to previous draw Performed By: #### 3 2044 #### [facility] [address] [place] [address], [facility] Chloride [Moles/Vol] 100 mmol/L Normal 98-107 [facility] Comment on above: Order Comment: No: D o not add to previous draw Performed By: #### 3 2044 #### [facility] [address] [place] [address], [facility] CO2 [Moles/Vol] 27 mmol/L Normal 21-31 [facility] Comment on above: Order Comment: No: D o not add to previous draw Performed By: #### 3 2044 #### [facility] [address] [place] [address], [facility] Creatinine [Mass/Vol] 2.82 mg/dL High 0.70-1.30 [facility] Comment on above: Order Comment: No: D o not add to previous draw Performed By: #### 3 2044 #### [facility] [address] [place] [address], [facility] EGFR 23 ml/min/1.73sq m Abnormal >60 [facility] Comment on above: Order Comment: No: D o not add to previous draw Result Comment: [facility]'s estimated glomerular filtration rate (eGFR) will [...] [facility] [address] [place] [address], [facility] Glucose [Mass/Vol] 114 mg/dL High 70-100 [facility] Comment on above: Order Comment: No: D o not add to previous draw Performed By: #### 3 2044 #### [facility] [address] [place] [address], [facility] Potassium [Moles/Vol] 4.4 mmol/L Normal 3.5-5.1 [facility] Comment on above: Order Comment: No: D o not add to previous draw Performed By: #### 3 2044 #### [facility] [address] [place] [address], [facility] Sodium [Moles/Vol] 137 mmol/L Normal 136-145 [facility] Comment on above: Order Comment: No: D o not add to previous draw Performed By: #### 3 2044 #### [facility] [address] [facility] [place] [address], [facility] Urea nitrogen [Mass/Vol] 61 mg/dL High 7-25 [facility] Comment on above: Order Comment: No: D o not add to previous draw Performed By: #### 3 2044 #### [facility] [address] [place] [address], [facility] BNP (B-TYPE NATRIURETIC PEPT ANH)on 04-25-2022 Natriuretic peptide B (Bld) [Mass/Vol] 1813 pg/mL High 0-100 [facility] Comment on above: Order Comment: Yes: Add to Previous draw if able Result Comment: Give n the appropriate clinical setting a BNP result of >100 pg/mL indicates congestive heart failure. Performed By: #### 3 2044 #### [facility] [address] C REACTIVE PROTEINon 022 CRP [Mass/Vol] 17.2 mg/L High 0.0-7.0 [facility] Comment on above: Order Comment: No: D o not add to previous draw Performed By: #### 5 0103 #### [facility] [address] [place] [address], [facility] CBC W/DIFFon 04-25-2022 ABS IMM GRANS 0.0 10*3/uL Normal 0.0-0.2 [facility] Comment on above: Performed By: #### 5 0103 #### [facility] [address] ABS NEUTROPHILS 5.4 10*3/uL Normal 1.6-7.6 [facility] Comment on above: Performed By: #### 5 3 #### [facility] [address] [place] [address], [facility] Basophils (Bld) [#/Vol] 0.0 10*3/uL Normal 0.0-0.2 [facility] Comment on above: Performed By: #### 5 0103 #### [facility] [address] [place] [address], [facility] Basophils/100 WBC (Bld) 0.6 % Normal 0.0-1.0 [facility] Comment on above: Performed By: #### 5 0103 #### [facility] [address] [place] [address], [facility] Eosinophils (Bld) [#/Vol] 0.2 10*3/uL Normal 0.0-0.5 [facility] Comment on above: Performed By: #### 5 0103 #### [facility] [address] [facility] [place] [address], [facility] Eosinophils/100 WBC (Bld) 2.5 % Normal 0.0-6.0 [facility] Comment on above: Performed By: #### 5 3 #### [facility] [address] [facility]. [address] Erythrocyte distribution width (RBC) [Ratio] 19.9 % High 11.5-15.0 [facility] Comment on above: Performed By: #### 3 #### [facility] [address] [place] [address], [facility] Hematocrit (Bld) [Volume fraction] 31.6 % Low 39.0-50.0 [facility] Comment on above: Performed By: #### 5 3 #### [facility] [address] [facility]. [address] Hemoglobin (Bld) [Mass/Vol] 9.3 g/dL Low 13.0-17.0 [facility] Comment on above: Performed By: #### 5 3 #### [facility] [address] [place] [address], [facility] IMMATURE GRANS 0.2 % Normal 0.0-1.0 [facility] Comment on above: Performed By: #### 5 3 #### [facility] [address] [facility] [address], [facility] Lymphocytes (Bld) [#/Vol] 0.3 10*3/uL Low 1.2-4.0 [facility] Comment on above: Performed By: #### 5 3 #### [facility] [address] [place] [address], [facility] Lymphocytes/100 WBC (Bld) 4.4 % Low 20.0-45.0 [facility] Comment on above: Performed By: #### 5 3 #### [facility] [address] MCH (RBC) [Entitic mass] 23.1 pg Low 27.0-33.0 [facility] Comment on above: Performed By: #### 5 3 #### [facility] [address] MCHC (RBC) [Mass/Vol] 29.4 g/dL Low 32.0-35.0 [facility] Comment on above: Performed By: #### 5 3 #### [facility] [address] MCV (RBC) [Entitic vol] 78.6 fL Low 82.0-98.0 [facility] Comment on above: Performed By: #### 5 102 #### [facility] [address] Monocytes (Bld) [#/Vol] 0.6 10*3/uL Normal 0.1-1.0 [facility] Comment on above: Performed By: #### 5 102 #### [facility] [address] MONOS 8.9 % Normal 5.0-12.0 [facility] Comment on above: Performed By: #### 5 3 #### [facility] [address] Neutrophils/100 WBC (Bld) 83.4 % High 40.0-72.0 [facility] Comment on above: Performed By: #### 5 3 #### [facility] [address] Nucleated RBC/100 WBC (Bld) [Ratio] 0 % Normal 0-0 [facility] Comment on above: Performed By: #### 5 3 #### [facility] [address] [place] [id number], [facility] PLAT CNT 191 10*3/uL Normal 150-400 [facility] Comment on above: Performed By: #### 5 0103 #### [facility] [address] [place] [address], [facility] RBC (Bld) [#/Vol] 4.02 10*6/uL Low 4.20-5.70 [facility] Comment on above: Performed By: #### 5 0103 #### [facility] [address] [place] [address], [facility] WBC (Bld) [#/Vol] 6.43 10*3/uL Normal 4.00-10.60 [facility] Comment on above: Performed By: #### 5 0103 #### [facility] [address] [place] [address], [facility] COMPLEMENT 3on 04-25-2022 COMPLEMENT 3 104 mg/dL Normal 79-152 [facility] Comment on above: Order Comment: No: D o not add to previous draw Performed By: #### 5 0103 #### [facility] [address] [place] [address], [facility] COMPLEMENT 4on 04-25-2022 COMPLEMENT 4 23 mg/dL Normal 16-38 [facility] Comment on above: Order Comment: No: D o not add to previous draw Performed By: #### 5 0103 #### [facility] [address] [place] [id number], [facility] CPKon 04-25-2022 CK [Catalytic activity/Vol] 23 U/L Low 30-223 [facility] Comment on above: Order Comment: No: D o not add to previous draw Performed By: #### 7 0207 #### [facility] [address] [place] [id number], [facility] CREATININE URINE RANDOMon Creatinine (U) [Mass/Vol] 104.0 mg/dL Normal [facility] Comment on above: Order Comment: Check Pacemaker/AICD Lead Position, Chest X-ray PA \EANDE\ LAT in Dept ;DO NOT lift affected arm above shoulder. S/P pacemaker/ICD implant. Verify lead placement Result Comment: Ther e are no established reference values for random urine specimens Performed By: #### 4 1919, [id number] ####[facility] [place] [address], [facility] FERRITINon 04-25-2022 Ferritin [Mass/Vol] 50 ng/mL Normal 24-336 [facility] Comment on above: Order Comment: No: D o not add to previous draw Performed By: #### 7 0207 #### [facility] [address] [facility] [address], [facility] HEPATITIS B CORE ANTIBODYon 04-25-2022 HEP B CORE AB Non-Reactive Normal NONREACTIVE [facility] Comment on above: Order Comment: No: D o not add to previous draw Performed By: #### 7 0207 #### [facility] [address] [facility] [place] [address], [facility] HEPATITIS C ANTIBODYon 04-25 ANTI-HCV Non-Reactive Normal NONREACTIVE [facility] Comment on above: Order Comment: No: D o not add to previous draw Performed By: #### 7 0207 #### [facility] [address] [facility] [place] [address], [facility] IMMUNOFIXATION BLOODon 04-25 IgA [Mass/Vol] 733 mg/dL High 60-413 [facility] Comment on above: Performed By: #### 5 0103 #### [facility] [address] [facility] [place] [address], [facility] IgG [Mass/Vol] 1330 mg/dL Normal 591-1540 [facility] Comment on above: Performed By: #### 5 0103 #### [facility] [address] [place] [place] [address], [facility] IgM [Mass/Vol] 365 mg/dL High 54-285 [facility] Comment on above: Performed By: #### 5 0103 #### [facility] [address] [place] [address], [facility] IMMUNOFIXATION Normal [facility] Comment on above: Result Comment: Seru m immunofixation reveals a monoclonal Redby M gammopathy. SEE SEPARATE REPORT Performed By: #### 5 0103 #### [facility] [address] [facility] [address], [facility] KAPPA LIGHT CHN See [place] report. Normal 0.33-1.94 [facility] Comment on above: Performed By: #### 5 0103 #### [facility] [address] [facility] [place] [address], [facility] [facility] KAPPA/LAMDBA RATIO See [place] report. Normal 0.26-1.65 Th e [facility] Comment on above: Result Comment: For patients with renal impairment, use a kappa/lambda ratio of 0.37-3.10 Performed By: #### 5 0103 #### [facility] [address] [facility] [address], [facility] LAMBDA LIGHT CHN See [place] report. Normal 0.57-2.63 The [facility] Comment on above: Performed By: #### 5 3 #### [facility] [address] [facility] [address], [facility] LIVER BATTERYon 04-25-2022 Albumin [Mass/Vol] 3.3 g/dL Low 3.5-5.7 The [facility] Comment on above: Order Comment: No: D o not add to previous draw Performed By: #### 3 2044 #### [facility] [address] [facility] [address], [facility] ALKALINE PHOSPH 78 IU/L Normal 34-104 The [facility] Comment on above: Order Comment: No: D o not add to previous draw Performed By: #### 3 2044 #### [facility] [address] [place] [address], [place] ALT [Catalytic activity/Vol] 15 U/L Normal 7-52 The [facility] Comment on above: Order Comment: No: D o not add to previous draw Performed By: #### 3 2044 #### [facility] [address] [place] [address], [place] AST [Catalytic activity/Vol] 16 U/L Normal 13-39 The [facility] Comment on above: Order Comment: No: D o not add to previous draw Performed By: #### 3 2044 #### [facility] [address] [place] [address], [place] Bilirubin [Mass/Vol] 1.2 mg/dL High 0.3-1.0 The [facility] Comment on above: Order Comment: No: D o not add to previous draw Performed By: #### 3 2044 #### [facility] [address] [place] [address], [place] Bilirubin.direct [Mass/Vol] 0.4 mg/dL High 0.0-0.2 The [facility] Comment on above: Order Comment: No: D o not add to previous draw Performed By: #### 3 2044 #### [facility] [address] [place] [address], [place] Protein [Mass/Vol] 6.8 g/dL Normal 6.0-8.3 The [facility] Comment on above: Order Comment: No: D o not add to previous draw Performed By: #### 3 2044 #### [facility] [address] [place] [address], [place] MAGNESIUM BLOODon 04-25-2022 Magnesium [Mass/Vol] 2.7 mg/dL Normal 1.9-2.7 The [facility] Comment on above: Order Comment: No: D o not add to previous draw Performed By: #### 3 2044 #### [facility] [address] [place] [address], [facility] PHOSPHORUS BLOODon Phosphate [Mass/Vol] 3.7 mg/dL Normal 2.5-5.0 The [facility] Comment on above: Order Comment: No: D o not add to previous draw Performed By: #### 7 0207 #### [facility] [address] [facility] POC SARS COV2 ANTIGEN NEGATI VEon 04-25-2022 POC SARS COV2 ANTIGEN NEG Negative Normal NEGATIVE The [facility] Comment on above: Result Comment: Nega [...] antigen from SARS-CoV-2 in direct nasopharyngeal swab (BINGO FLOATER) specimens from individuals who are suspected of [...] #### 3 2044 ####[facility] [facility] [address], [facility] PROTEIN ELECT Marcos 04-25-2022 Protein [Mass/Vol] 6.9 g/dL Normal 6.0-8.3 The [facility] Comment on above: Order Comment: No: D o not add to previous draw Performed By: #### 7 0207 #### [facility] [address] [facility] [place] [address], [facility] Protein [Mass/Vol] 0.20 g/dL High 0.00-0.00 The [facility] Comment on above: Order Comment: No: D o not add to previous draw Performed By: #### 7 0207 #### [facility] [address] [place] [address], [facility] PROTEIN ELECT Normal The [facility] Comment on above: Order Comment: No: D o not add to previous draw Result Comment: The abnormal band in the gamma globulin region suggests monoclonal gammopathy. SEE SEPARATE REPORT Performed By: #### 7 0207 #### [facility] [address] [facility] [place] [address], [facility] PROTEIN ELECT URon 2 PROTEIN ELECT No abnormal bands se en. SEE SEPARATE REPORT Normal The [facility] Comment on above: Order Comment: Check Pacemaker/AICD Lead Position, Chest X-ray PA \EANDE\ LAT in Dept ;DO NOT lift affected arm above shoulder. S/P pacemaker/ICD implant. Verify lead placement Performed By: #### 4 1919, [id number] ####[facility] [facility] [address], [facility] U TOTAL PROTEIN 47.8 mg/dL Normal The [facility] Comment on above: Order Comment: Check Pacemaker/AICD Lead Position, Chest X-ray PA \EANDE\ LAT in Dept ;DO NOT lift affected arm above shoulder. S/P pacemaker/ICD implant. Verify lead placement Result Comment: Ther e are no established reference values for random urine specimens Performed By: #### 4 191, [id number] ####[facility] [facility] [address], [facility] PROTHROMBIN TIMEon 2 INR Coag (PPP) [Relative time] 1.71 {INR} High 0.91-1.16 The [facility] Comment on above: Order Comment: No: [...] 0103 #### [facility] [address] PT Coag (PPP) [Time] 19.8 s High 12.3-14.8 The [facility] Comment on above: Order Comment: No: D o not add to previous draw Result Comment: ALL RESULTS MUST BE INTERPRETED WITH RESPECT TO BLOOD DRAWING ARTIFACT OR DILUTION ERROR OF ANTICOAGULANT AT THE TIME OF SAMPLING. Performed By: #### 5 0103 #### [facility] [address] SEDIMENTATION RATEon 022 SED RATE 63 mm/hr High 0-10 The [facility] Comment on above: Order Comment: No: D o not add to previous draw Performed By: #### 5 0608 #### [facility] [address] [place] [address], [facility] SERUM FREE LIGHT CHAINS ILon 04-25-2022 FREE KAPPA LIGHT CHAINS 14.36 mg/dL High 0.37-1.94 The [facility] FREE KAPPA/LAMBDA RATIO 2.00 High 0.26-1.65 The [facility] FREE LAMBDA LIGHT CHAINS 7.19 mg/dL High 0.57-2.63 The [facility] [place] Normal The [facility] Comment on above: Result Comment: Test Performed by [facility] [address] [place] [address] - Released 05/02/2022 21:21 Result changed by IF on 05/02/2022 21:21. The previous value was Test Performed by [employer] [facility] [address] [place] [address] [phone] TIBC- INCLUDES IRONon 2021 FE SATURATION 9 % Low 20-50 The [facility] Comment on above: Order Comment: No: D o not add to previous draw Performed By: #### 7 0207 #### [facility] [address] [facility] [place] [address], [facility] Iron [Mass/Vol] 31 ug/dL Low 50-212 The [facility] Comment on above: Order Comment: No: D o not add to previous draw Performed By: #### 7 0207 #### [facility] [address] [place] [address], [facility] TIBC 349 mcg/dL Normal 250-450 The [facility] Comment on above: Order Comment: No: D o not add to previous draw Performed By: #### 7 0207 #### [facility] [address] [place] [place] [address], [facility] UIBC 318 mcg/dL Normal 155-355 The [facility] Comment on above: Order Comment: No: D o not add to previous draw Performed By: #### 7 0207 #### [facility] [address] [place] [address], [facility] TROPONIN-Ion 04-25-2022 Troponin I.cardiac [Mass/Vol] 0.03 ng/mL Normal 0.00-0.04 The [facility] Comment on above: Order Comment: No: D o not add to previous draw Result Comment: REFE RENCE RANGES: 0.00 - 0.04 ng/ml NORMAL 0.05 - 0.50 ng/ml INDETERMINATE > 0.50 ng/ml CONSISTENT WITH AN M.I. Performed By: #### 3 2045 #### [place] [address], [facility] US RENAL WITH BLADDERon 08- US RENAL WITH BLADDER [facility] Department of Radiology [address] [place] [address] Patient Name: MAN PATEL : 1950 Sex: M Age: Race: White Pt. Location: [address] [place] [address] Patient Status: I Ordered Date: 04/25/2022 3:40:00 [...] cyst. Electronically signed: Joel Lambert. Transcribed by: [email or web address], User Resident: Electronically Signed by: TIFFANIE CASTILLO @ 05/08/2022 08:26 AM Normal The [facility] Comment on above: Order Comment: R/O H ydronephrosis BNPon 04-24-2022 Natriuretic peptide B (Bld) [Mass/Vol] 22006.0 pg/mL Critically high <=900.0 The [facility] Comment on above: Performed By: #### H STROPN, BNP, BMP ####[facility] [address] [place] [address]DrLatoya Anthony CBC AUTO DIFFon 04-24-2022 BASO # 0.1 103/ul Normal 0.0-0.1 The [facility] Comment on above: Performed By: #### C BC ####[facility] [address] [place], [place] [address]Dr. Elba Anthony Basophils/100 WBC (Bld) 0.8 % Normal 0.2-2.0 The [facility] Comment on above: Performed By: #### C BC ####[facility] [address] [place], [place] [address]Dr. Elba Anthony EO # 0.2 103/ul Normal 0.0-0.7 The [facility] Comment on above: Performed By: #### C BC ####[facility] Pne[address] [place], [place] [address]Dr. Elba Anthony Eosinophils/100 WBC (Bld) 3.0 % Normal 0.9-7.0 The [facility] Comment on above: Performed By: #### C BC ####[facility] [address] [place], [place] [address]DrLatoya Anthony Erythrocyte distribution width (RBC) [Ratio] 20.0 % Critically high 11.0-15.[address] [facility] Comment on above: Performed By: #### C BC ####[facility] [address] [place] [address]Dr. Elba Anthony Hematocrit (Bld) [Volume fraction] 32.7 % Critically low 42.0-54.0 The [facility] Comment on above: Performed By: #### C BC ####[facility] [address] [place], [place] [address]Dr. Elba Anthony Hemoglobin (Bld) [Mass/Vol] 9.7 g/dL Critically low 14.0-18.[address] [facility] Comment on above: Performed By: #### C BC ####[facility] [address] [place], [place] [address]Dr. Elba Anthony IG # 0.02 10e3/ul Normal 0.00-0.[address] [facility] Comment on above: Performed By: #### C BC ####[facility] [address] [place], [place] [address]Dr. Nereydasiobhan Anthony IG % 0.3 % Normal 0.0-0.[address] [facility] Comment on above: Performed By: #### C BC ####[facility] Z[address]vir[address]un[address] [place], [place] [address]Dr. Nereydasiobhan Anthony LYMPH # 0.3 103/ul Critically low 1.2-3.8 The [facility] Comment on above: Performed By: #### C BC ####[facility] [address] [place], [place] [address]Dr. Elba Anthony Lymphocytes/100 WBC (Bld) 4.9 % Critically low 20.5-60.0 The [facility] Comment on above: Performed By: #### C BC ####[facility] B[address]rqsx[address] [place], [place] [address]Dr. Elba Raj MANUAL DIFF REQ NO Normal The [facility] Comment on above: Performed By: #### C BC ####[facility] Cp[address]exr[address] [place], [place] [address]Dr. Elba Anthony MCH (RBC) [Entitic mass] 23.8 pg Critically low 25.9-34.0 The [facility] Comment on above: Performed By: #### C BC ####[facility] [address] [place] [address]Dr. Elba Raj MCHC (RBC) [Mass/Vol] 29.7 g/dL Critically low 29.9-35.2 The [facility] Comment on above: Performed By: #### C BC ####[facility] [address] [place], [place] [address]Dr. Elba Anthony MCV (RBC) [Entitic vol] 80.3 fL Normal 80.0-94.0 The [facility] Comment on above: Performed By: #### C BC ####[facility] [address] [place], [place] [address]Dr. Elba Anthony MONO # 0.6 103/ul Normal 0.3-0.8 The [facility] Comment on above: Performed By: #### C BC ####[facility] Rany[address] [place], [place] [address]Dr. Elba Anthony Monocytes/100 WBC (Bld) 9.6 % Normal 1.7-12.0 The [facility] Comment on above: Performed By: #### C BC ####[facility] [address] [place], [place] [address]Dr. Elba Anthony NEUT # 5.2 103/ul Normal 1.4-6.5 The [facility] Comment on above: Performed By: #### C BC ####[facility] [address] [place], [place] [address]Dr. Elba Anthony Neutrophils/100 WBC (Bld) 81.4 % Critically high 43.0-75.0 The [facility] Comment on above: Performed By: #### C BC ####[facility] S[address] [place], [place] [address]Dr. Elba Anthony Platelet mean volume (Bld) [Entitic vol] 10.1 fL Normal 9.5-13.5 The [facility] Comment on above: Performed By: #### C BC ####[facility] [address] [place], [place] [address]Dr. Elba Anthony PLT 214 103/ul Normal 150-450 The [facility] Comment on above: Performed By: #### C BC ####[facility] [address] [place], [place] [address]Lo. Elba Anthony RBC 4.07 106/ul Critically low 4.70-6.10 The [facility] Comment on above: Performed By: #### C BC ####[facility] [address] [place], [place] [address]Ee. Elba Anthony WBC 6.4 103/ul Normal 4.0-11.0 The [facility] Comment on above: Performed By: #### C BC ####[facility] [address] [place] [id number]. Elba Anthony Covid-19 PCR (CVDTB)on 04-08 SARS-CoV-2 (COVID-19) RNA ELIZABETH+probe Ql (Unsp spec) Not detected Normal NOT DETECTED The [facility] Comment on above: Result Comment: When [...] for this test is supported by the [place] of Health and Human Service's declaration that [...] be used). Performed By: #### C VDTBH ####[facility] [address] [place], [place] [address]Bo. Elba Anthony ER URINE PROFILEon 2 Bilirubin Ql (U) Negative Normal NEGATIVE The [facility] Comment on above: Performed By: #### E RUR ####[facility] [address] [place] [address]Dr. Elba Anthony Clarity (U) CLEAR Normal CLEAR The [facility] Comment on above: Performed By: #### E RUR ####[facility] [address] [place], [place] [address]Dr. Elba Anthony Color (U) LT. YELLOW Normal YELLOW The [facility] Comment on above: Performed By: #### E RUR ####[facility] [address] [place], [place] [address]Dr. Elba Anthony ERUAHD A micrscopic examina tion will be performed if indicated. Normal The [facility] Comment on above: Performed By: #### E RUR ####[facility] [address] [place], [place] [address]Dr. Nereydasiobhan Anthony Glucose Ql (U) Negative Normal NEGATIVE The [facility] Comment on above: Performed By: #### E RUR ####[facility] H[address]ww[address] [place], [place] [address]Dr. Elba Anthony Hemoglobin Ql (U) Negative Normal NEGATIVE The [facility] Comment on above: Performed By: #### E RUR ####[facility] [address] [place], [place] [address]Dr. Elba Anthony Ketones Ql (U) Negative Normal NEGATIVE The [facility] Comment on above: Performed By: #### E RUR ####[facility] [address] [place], [place] [address]Dr. Elba Anthony LEUKOCYTES Negative Normal NEGATIVE The [facility] Comment on above: Performed By: #### E RUR ####[facility] X[address] [place], [place] [address]Dr. Nereydasiobhan Anthony Nitrite Ql (U) Negative Normal NEGATIVE The [facility] Comment on above: Performed By: #### E RUR ####[facility] G[address]ug[address] [place], [place] [address]Dr. Nereydasiobhan Anthony pH (U) 6.0 [pH] Normal 5-9 The [facility] Comment on above: Performed By: #### E RUR ####[facility] [address] [place] [address]Dr. Elba Anthony SPEC GRAVITY 1.010 Normal 1.005-<=1.[address] [place] [address] Comment on above: Performed By: #### E RUR ####[facility] [address] [place] [address]Dr. Elba Anthony UA PROTEIN Negative Normal NEGATIVE/ TRACE The [facility] Comment on above: Performed By: #### E RUR ####[facility] [address] [place] [address]Dr. Elba Anthony UR MICRO IND NOT INDICATED Normal [facility] Comment on above: Performed By: #### E RUR ####[facility] E[address] [place], [place] [address]Dr. Elba Anthony Urobilinogen Qn (U) 2.0 {Caden'U}/dL Abnormal 0.2 - 1. [address] [facility] Comment on above: Performed By: #### E RUR ####[facility] Abx[address] [place], [place] [address]Dr. Elba Anthony PROF CHEM 8 (BAS METB)on Anion gap [Moles/Vol] 16.7 mmol/L Normal [facility] Comment on above: Performed By: #### H STROPN, BNP, BMP ####[facility] [address]un[address] [place], [place] [address]Dr. Elba Anthony Calcium [Mass/Vol] 9.2 mg/dL Normal 8.5-10.[address] [facility] Comment on above: Performed By: #### H STROPN, BNP, BMP ####[facility] [address] [place] [address]Dr. Elba Anthony Chloride [Moles/Vol] 97 mmol/L Critically low 98-107 The [facility] Comment on above: Performed By: #### H STROPN, BNP, BMP ####[facility] [address] [place], [place] [address]Dr. Elba Anthony CO2 [Moles/Vol] 26.3 mmol/L Normal 21.0-32.[address] [facility] Comment on above: Performed By: #### H STROPN, BNP, BMP ####[facility] [address] [place] [address]Dr. Elba Anthony Creatinine [Mass/Vol] 3.32 mg/dL Critically high 0.70-1.[address] [facility] Comment on above: Performed By: #### H STROPN, BNP, BMP ####[facility] [address] [place], [place] [address]Dr. Elba Anthony EGFR-AF SAUDI ARABIAN 22 mL/min/1.73m2 Critically low >=[address] [facility] Comment on above: Performed By: #### H STROPN, BNP, BMP ####[facility] [address]cej[address] [place], [place] [address]Dr. Elba Anthony EGFR-NON AF SAUDI ARABIAN 18 mL/min/1.73m2 Critically low >=[address] [facility] Comment on above: Performed By: #### H STROPN, BNP, BMP ####[facility] [address] [place], [place] [address]Dr. Elba Anthony Glucose [Mass/Vol] 158 mg/dL Critically high 74-106 T [facility] Comment on above: Performed By: #### H STROPN, BNP, BMP ####[facility] [address]kw[address] [place], [place] [address]Dr. Elba Anthony Potassium [Moles/Vol] 5.0 mmol/L Normal 3.5-5.[address] [facility] Comment on above: Performed By: #### H STROPN, BNP, BMP ####[facility] [address] [place], [place] [address]Dr. Elba Anthony Sodium [Moles/Vol] 135 mmol/L Critically low 136-145 Th [facility] Comment on above: Performed By: #### H STROPN, BNP, BMP ####[facility] [address] [place], [place] [address]Dr. Elba Anthony Urea nitrogen [Mass/Vol] 67.0 mg/dL Critically high 7.0-18.[address] [facility] Comment on above: Performed By: #### H STROPN, BNP, BMP ####[facility] [address] [place] [address]Dr. Elba Anthony Urea nitrogen/Creatinine [Mass ratio] 20.2 mg/mg Normal [facility] Comment on above: Performed By: #### H GUILLERMINA, BNP, BMP ####[facility] [address] [place] [address]Dr. Elba Anthony TROPONIN, HIGH SENSITIVITYon 04-24-2022 HSTROP 36.4 pg/mL Normal 4.0-76.[address] [facility] Comment on above: Result Comment: CUT- OFF POINTS HAVE BEEN ESTABLISHED BASED ON THE FOURTH UNIVERSAL DEFINITIONS OF MYOCARDIALINFARCTION. THE UPPER REFERENCE LIMIT (URL) OF TROPONIN, DEFINED THE 99TH PERCENTILE OFcTnI DISTRIBUTION IN A REFERENCE POPULATION, HAS BEEN CONFIRMED THE DECISION THRESHOLDFOR SD DIAGNOSIS. Performed By: #### H GUILLERMINA, BNP, BMP ####[facility] [address] [place], [place] [address]Dr. Elba Anthony XR CHEST 1 Von 04-24-2022 XR CHEST [address] [facility] BNPon 04-22-2022 Natriuretic peptide B (Bld) [Mass/Vol] 11335.0 pg/mL Critically high <=900.[address] [facility] Comment on above: Performed By: #### B BINGO FLOATER, BMP ####[facility] [address] [place] [address]Dr. Elba Anthony PROF CHEM 8 (BAS METB)on Anion gap [Moles/Vol] 13.8 mmol/L Normal [facility] Comment on above: Performed By: #### B BINGO FLOATER, BMP ####[facility] [address] [place] [address]Dr. Elba Anthony Calcium [Mass/Vol] 8.7 mg/dL Normal 8.5-10.1 [facility] Comment on above: Performed By: #### B BINGO FLOATER, BMP ####[facility] [facility] Ykpdtoijbu[address] [place] [address]Dr. Elba Anthony Chloride [Moles/Vol] 98 mmol/L Normal 98-[address] [facility] Comment on above: Performed By: #### B BINGO FLOATER, BMP ####[facility] Mktusxojfh95[address] [place] [id number]. Elba Anthony CO2 [Moles/Vol] 29.1 mmol/L Normal 21.0-32.[address] [facility] Comment on above: Performed By: #### B BINGO FLOATER, BMP ####[facility] U[address]kms[address] [place], [place] [id number]. Elba Anthony Creatinine [Mass/Vol] 2.89 mg/dL Critically high 0.70-1.[address] [facility] Comment on above: Performed By: #### B BINGO FLOATER, BMP ####[facility] Rckcxbtqqd[address] [place], [place] [address]Dr. Nereydasiobhan Raj EGFR-AF SAUDI ARABIAN 26 mL/min/1.73m2 Critically low >=[address] [facility] Comment on above: Performed By: #### B BINGO FLOATER, BMP ####[facility] Ckswmdxarb[address] [place], [place] [address]Dr. Elba Anthony EGFR-NON AF SAUDI ARABIAN 22 mL/min/1.73m2 Critically low >=60 [facility] Comment on above: Performed By: #### B BINGO FLOATER, BMP ####[facility] Xgrfpohfrv[address] [place], [place] [address]Dr. Elba Anthony Glucose [Mass/Vol] 108 mg/dL Critically high 74-106 [facility] Comment on above: Performed By: #### B BINGO FLOATER, BMP ####[facility] Nnthmhlehy[address] [place], [place] [address]Dr. Elba Anthony Potassium [Moles/Vol] 4.9 mmol/L Normal 3.5-5.1 [facility] Comment on above: Performed By: #### B BINGO FLOATER, BMP ####[facility] Irvomeklpd[address] [place], [place] [address]Dr. Elba Anthony Sodium [Moles/Vol] 136 mmol/L Normal 136-145 [facility] Comment on above: Performed By: #### B BINGO FLOATER, BMP ####[facility] Finiqemtge[address] [place], [place] [address]Dr. Elba Anthony Urea nitrogen [Mass/Vol] 63.0 mg/dL Critically high 7.0-18.[address] [facility] Comment on above: Performed By: #### B BINGO FLOATER, BMP ####[facility] Phfqeczoov[address] [place], [place] [address]Dr. Elba Anthony Urea nitrogen/Creatinine [Mass ratio] 21.8 mg/mg Normal [facility] Comment on above: Performed By: #### B BINGO FLOATER, BMP ####[facility] Hyzkhqpdgc[address] [place], [place] [address]Dr. Elba Anthony BNPon 04-15-2022 Natriuretic peptide B (Bld) [Mass/Vol] 24432.0 pg/mL Critically high <=900.[address] [facility] Comment on above: Result Comment: repe ated Performed By: #### B BINGO FLOATER, BMP ####[facility] Nbxzlbxzgc65[address] [place], [place] [address]Dr. Elba Anthony PROF CHEM 8 (BAS METB)on Anion gap [Moles/Vol] 16.8 mmol/L Normal [facility] Comment on above: Performed By: #### B BINGO FLOATER, BMP ####[facility] Vwwffvzmqx8[address] [place], [place] [address]Dr. Elba Anthony Calcium [Mass/Vol] 8.4 mg/dL Critically low 8.5-10.1 [facility] Comment on above: Performed By: #### B BINGO FLOATER, BMP ####[facility] Sveizadgqt18[address] [place], [place] [address]Dr. Elba Anthony Chloride [Moles/Vol] 96 mmol/L Critically low 98-[address] [facility] Comment on above: Performed By: #### B BINGO FLOATER, BMP ####[facility] Xfpkjxssbe5[address] [place], [place] [address]Dr. Elba Anthony CO2 [Moles/Vol] 26.9 mmol/L Normal 21.0-32.[address] [facility] Comment on above: Performed By: #### B BINGO FLOATER, BMP ####[facility] Ryyrgohrbh[address] [place], [place] [address]Dr. Elba Anthony Creatinine [Mass/Vol] 2.83 mg/dL Critically high 0.70-1.[address] [facility] Comment on above: Performed By: #### B BINGO FLOATER, BMP ####[facility] E[address]qlkkwoj[address] [place] [address]Dr. Elba Anthony EGFR-AF SAUDI ARABIAN 27 mL/min/1.73m2 Critically low >=[address] [facility] Comment on above: Performed By: #### B BINGO FLOATER, BMP ####[facility] Tvesbpvhjn[address] [place] [address]Dr. Elba Anthony EGFR-NON AF SAUDI ARABIAN 22 mL/min/1.73m2 Critically low >=[address] [facility] Comment on above: Performed By: #### B BINGO FLOATER, BMP ####[facility] S[address]dvnnlpg[address] [place] [address]Dr. Elba Anthony Glucose [Mass/Vol] 118 mg/dL Critically high 74-106 T [facility] Comment on above: Performed By: #### B BINGO FLOATER, BMP ####[facility] Qynnthprzr628[address] [place], [place] [address]Dr. Elba Anthony Potassium [Moles/Vol] 4.7 mmol/L Normal 3.5-5.[address] [facility] Comment on above: Performed By: #### B BINGO FLOATER, BMP ####[facility] Ocfobcgkbk[address] [place], [place] [address]Dr. Elba Anthony Sodium [Moles/Vol] 135 mmol/L Critically low 136-145 Th [facility] Comment on above: Performed By: #### B BINGO FLOATER, BMP ####[facility] Aoksyihtce[address] [place], [place] [address]Dr. Elba Anthony Urea nitrogen [Mass/Vol] 68.0 mg/dL Critically high 7.0-18.[address] [facility] Comment on above: Performed By: #### B BINGO FLOATER, BMP ####[facility] Ltmwzozctu7[address] [place], [place] [address]Dr. Elba Anthony Urea nitrogen/Creatinine [Mass ratio] 24.0 mg/mg Normal [facility] Comment on above: Performed By: #### B BINGO FLOATER, BMP ####[facility] Hwacugbizb16[address] [place], [place] [address]Dr. Elba Anthony BNPon 04-02-2022 Natriuretic peptide B (Bld) [Mass/Vol] 50406.0 pg/mL Critically high <=900.0 [facility] Comment on above: Performed By: #### B BINGO FLOATER, BMP ####[facility] Mnyvuuvukq8[address] [place], [place] [address]Dr. Elba Anthony PROF CHEM 8 (BAS METB)on Anion gap [Moles/Vol] 9.7 mmol/L Normal [facility] Comment on above: Performed By: #### B BINGO FLOATER, BMP ####[facility] Sbttfnjnio060[address] [place], [place] [address]Dr. Elba Anthony Calcium [Mass/Vol] 8.8 mg/dL Normal 8.5-10.1 [facility] Comment on above: Performed By: #### B BINGO FLOATER, BMP ####[facility] Nhwejjfjcp[address] [place], [place] [address]Dr. Elba Anthony Chloride [Moles/Vol] 99 mmol/L Normal 98-107 [facility] Comment on above: Performed By: #### B BINGO FLOATER, BMP ####[facility] Imiwgszjji16[address] [place], [place] [address]Dr. Elba Anthony CO2 [Moles/Vol] 31.1 mmol/L Normal 21.0-32.0 [facility] Comment on above: Performed By: #### B BINGO FLOATER, BMP ####[facility] Zbcsgrlsuc65[address] [place], [place] [address]Dr. Elba Anthony Creatinine [Mass/Vol] 2.45 mg/dL Critically high 0.70-1.30 [facility] Comment on above: Performed By: #### B BINGO FLOATER, BMP ####[facility] Hfliwxjuqp[address] [place], [place] [address]Dr. Elba Anthony EGFR-AF SAUDI ARABIAN 32 mL/min/1.73m2 Critically low >=60 [facility] Comment on above: Performed By: #### B BINGO FLOATER, BMP ####[facility] Injdzrppru[address] [place], [place] [address]Dr. Elba Anthony EGFR-NON AF SAUDI ARABIAN 26 mL/min/1.73m2 Critically low >=60 [facility] Comment on above: Performed By: #### B BINGO FLOATER, BMP ####[facility] [address]roaxokon[address] [place] [id number]. Elba Anthony Glucose [Mass/Vol] 101 mg/dL Normal 74-106 [facility] Comment on above: Performed By: #### B BINGO FLOATER, BMP ####[facility] Earbjojhvi[address] [place] [address]Dr. Elba Anthony Potassium [Moles/Vol] 3.8 mmol/L Normal 3.5-5.1 [facility] Comment on above: Performed By: #### B BINGO FLOATER, BMP ####[facility] Hfzgozmvbu[address] [place] [address]Dr. Elba Anthony Sodium [Moles/Vol] 136 mmol/L Normal 136-145 [facility] Comment on above: Performed By: #### B BINGO FLOATER, BMP ####[facility] Zmprumucss[address] [place], [place] [address]Dr. Elba Anthony Urea nitrogen [Mass/Vol] 46.0 mg/dL Critically high 7.0-18.0 [facility] Comment on above: Performed By: #### B BINGO FLOATER, BMP ####[facility] Uqwxtlsxdt99[address] [place], [place] [address]Dr. Elba Anthony Urea nitrogen/Creatinine [Mass ratio] 18.8 mg/mg Normal [facility] Comment on above: Performed By: #### B BINGO FLOATER, BMP ####[facility] Xqbifoupqb7[address] [place], [place] [address]Dr. Elba Anthony CBC W MANUAL DIFFon 04-01-20 22 ANISOCYTOSIS 1+ Normal [facility] Comment on above: Performed By: #### C ADALGISA ####[facility] Hxfvsyzjel9616[address] [place], [place] [address]Dr. Elba Raj ATYPICAL LYMPH # 0.00 103/ul Normal [facility] Comment on above: Performed By: #### C ADALGISA ####[facility] Bcjxntnyjl[address] [place], [place] [address]Dr. Elba Anthony ATYPICAL LYMPH % 0 % Normal [facility] Comment on above: Performed By: #### C ADALGISA ####[facility] Uhktwpoonc[address] [place] [address]Dr. Yisiobhan Anthony BAND # 0.4 103/ul Critically high 0.0-0.3 [facility] Comment on above: Performed By: #### C BCVINCENT ####[facility] Ioknieivsw[address] [place] [address]Dr. Elba Anthony BAND % 4 % Normal 0-5 [facility] Comment on above: Performed By: #### C BCVINCENT ####[facility] Utynijtzey6535[address] [place], [place] [address]Dr. Yilan Anthony BASOM # 0.00 103/ul Normal 0.00-0.10 [facility] Comment on above: Performed By: #### C ADALGISA ####[facility] Gywxhumeki24[address] [place], [place] [address]Dr. Elba Anthony BASOM % 0.0 % Critically low 0.2-2.0 [facility] Comment on above: Performed By: #### C ADALGISA ####[facility] Yrbwezjtzd[address] [place], [place] [address]Dr. Yisiobhan Anthony BLAST # 0.0 103/ul Normal [facility] Comment on above: Performed By: #### C ADALGISA ####[facility] Xjopvvrvda[address] [place], [place] [address]Dr. Yisiobhan Anthony BLAST % 0 % Normal [facility] Comment on above: Performed By: #### C ADALGISA ####[facility] Equikukgqc[address] [place], [place] [address]Dr. Elba Anthony CORRECTED WBC Normal 4.0-11.0 [facility] Comment on above: Performed By: #### C BCVINCENT ####[facility] Tgnfmskwnl[address] [place], [place] [address]Dr. Yisiobhan Anthony EOS # 0.00 103/ul Normal 0.00-0.70 [facility] Comment on above: Performed By: #### C BCVINCENT ####[facility] Bxlmxiuvpc[address] [place], [place] [address]Dr. Yisiobhan Anthony EOS% 0.0 % Critically low 0.9-7.0 [facility] Comment on above: Performed By: #### C ADALGISA ####[facility] Xkaarynbow[address] [place], [place] [address]Vj. Elba Anthony HCT 31.3 % Critically low 42.0-54.0 [facility] Comment on above: Performed By: #### C ADALGISA ####[facility] X[address]hydweks4[address] [place], [place] [address]Ow. Elba Anthony HGB 9.2 g/dl Critically low 14.0-18.0 [facility] Comment on above: Performed By: #### C ADALGISA ####[facility] Nwwbgrzzao9599 [place], [place] [address]Dj. Elba Anthony HYPOCHROMASIA SLIGHT Normal [facility] Comment on above: Performed By: #### C ADALGISA ####[facility] [address]qmoq[address] [place] [id number]. Elba Anthony LYMPHM # 0.32 103/ul Critically low 1.20-3.80 [facility] Comment on above: Performed By: #### C ADALGISA ####[facility] Rmvxxcvhhi[address] [place] [id number]. Elba Anthony LYMPHM% 3.0 % Critically low 20.5-60.0 [facility] Comment on above: Performed By: #### C ADALGISA ####[facility] L[address]aufyerms[address] [place] [id number]. Elba Anthony MCH 23.2 pg Critically low 25.9-34.0 [facility] Comment on above: Performed By: #### C ADALGISA ####[facility] Jl[address]irwqrh[address] [place] [id number]. Elba Anthony MCHC 29.4 g/dl Critically low 29.9-35.2 [facility] Comment on above: Performed By: #### C ADALGISA ####[facility] Jrwenedsvu0514 [place] [id number]. Elba Anthony MCV 79.0 fL Critically low 80.0-94.0 [facility] Comment on above: Performed By: #### C ADALGISA ####[facility] Uikgxnflan2[address] [place] [id number]. Elba Anthony METAMYELOCYTE # 0.1 103/ul Normal [facility] Comment on above: Performed By: #### C ADALGISA ####[facility] Iqdebpjeek0383 [place] [phone]. Elba Anthony METAMYELOCYTE % 1 % Normal [facility] Comment on above: Performed By: #### C ADALGISA ####[facility] Zspenrlugv9647 [place] [id number]. Elba Anthony MICROCYTOSIS SLIGHT Normal [facility] Comment on above: Performed By: #### C ADALGISA ####[facility] Hvrkosngoj6094 [place] [id number]. Elba Anthony MONOM# 0.32 103/ul Normal 0.30-0.80 [facility] Comment on above: Performed By: #### C ADALGISA ####[facility] Rhxutudbvp[address] [place], [place] [address]Dr. Elba Anthony MONOM% 3.0 % Normal 1.7-12.0 [facility] Comment on above: Performed By: #### C ADALGISA ####[facility] Fcrxiqaw[address] [place], [place] [address]Dr. Elba Anthony MPV 9.9 fL Normal 9.5-13.5 [facility] Comment on above: Performed By: #### C ADALGISA ####[facility] Ouuwlimjej[address] [place], [place] [address]Dr. Elba Anthony MYELOCYTE # 0.0 103/ul Normal [facility] Comment on above: Performed By: #### C ADALGISA ####[facility] Vekbospneo12[address] [place] [id number]. Elba Anthony MYELOCYTE % 0 % Normal [facility] Comment on above: Performed By: #### C ADALGISA ####[facility] Ffvtwmdzwo[address] [place], [place] [address]Dr. Elba Anthony NRBC 0 Normal [facility] Comment on above: Performed By: #### C ADALGISA ####[facility] Ihajikhpwh[address] [place] [address]Dr. Elba Anthony PLT 167 103/ul Normal 150-450 [facility] Comment on above: Performed By: #### C ADALGISA ####[facility] Ioedjwmwfl3463 [place] [id number]. Elba Anthony RBC 3.96 106/ul Critically low 4.70-6.[address] [facility] Comment on above: Performed By: #### C ADALGISA ####[facility] Iazlafnqrr6465 [place] [id number]. Elba Anthony RDW 19.8 % Critically high 11.0-15.[address] [facility] Comment on above: Performed By: #### C ADALGISA ####[facility] Vmdsfhvcjj4594 [place] [id number]. Elba Anthony SEG # 9.52 103/ul Critically high 1.40-6.[address] [facility] Comment on above: Performed By: #### C ADALGISA ####[facility] Brrxgvgmwe3145 [place] [id number]. Elba Anthony SEG % 89.0 % Critically high 43.0-75.[address] [facility] Comment on above: Performed By: #### C ADALGISA ####[facility] Lamudwsjwl11[address] [place] [id number]. Elba Anthony WBC 10.7 103/ul Normal 4.0-11.[address] [facility] Comment on above: Performed By: #### C ADALGISA ####[facility] Hxdjrbxlbn35[address] [place] [id number]. Elba Anthony CT CSPINE WO CONon CT CSPINE WO CON Normal [facility] CT HEAD WO CONon 04-01-2022 CT HEAD WO CON Normal [facility] PROF 14(COMP METB)on 022 Albumin [Mass/Vol] 2.8 g/dL Critically low 3.4-5.0 Th [facility] Comment on above: Performed By: #### C MP ####[facility] Qkebyzrega3364 [place] [id number]. Elba Anthony Albumin/Globulin [Mass ratio] 0.6 {ratio} Normal [facility] Comment on above: Performed By: #### C MP ####[facility] Ywaeggudle[address] [place] [address]Dr. Elba Anthony ALP [Catalytic activity/Vol] 81 U/L Normal 46-116 [facility] Comment on above: Performed By: #### C MP ####[facility] Uiebkhsaho[address] [place] [address]Dr. Elba Anthony ALT [Catalytic activity/Vol] 15 U/L Critically low 16-63 [facility] Comment on above: Performed By: #### C MP ####[facility] Gfcbycmecl8[address] [place], [place] [address]Dr. Elba Anthony Anion gap [Moles/Vol] 9.2 mmol/L Normal [facility] Comment on above: Performed By: #### C MP ####[facility] Dzqqcskzyn[address] [place], [place] [address]Dr. Elba Anthony AST [Catalytic activity/Vol] 21 U/L Normal 15-37 [facility] Comment on above: Performed By: #### C MP ####[facility] Mdkiwxnwup[address] [place], [place] [address]Dr. Elba Anthony Bilirubin [Mass/Vol] 1.7 mg/dL Critically high 0.2-1.0 [facility] Comment on above: Performed By: #### C MP ####[facility] Otgmycqrsp[address] [place], [place] [address]Dr. Elba Anthony Calcium [Mass/Vol] 9.0 mg/dL Normal 8.5-10.1 [facility] Comment on above: Performed By: #### C MP ####[facility] Xhywzofawg[address] [place], [place] [address]Dr. Elba Anthony Chloride [Moles/Vol] 99 mmol/L Normal 98-107 [facility] Comment on above: Performed By: #### C MP ####[facility] Ogczcputtk[address] [place], [place] [address]Dr. Elba Anthony CO2 [Moles/Vol] 30.7 mmol/L Normal 21.0-32.0 [facility] Comment on above: Performed By: #### C MP ####[facility] Nxhtzustvz64[address] [place] [id number]. Elba Anthony Creatinine [Mass/Vol] 2.60 mg/dL Critically high 0.70-1.[address] [facility] Comment on above: Performed By: #### C MP ####[facility] Wjjosonwpb2259 [place] [id number]. Elba Anthony EGFR-AF SAUDI ARABIAN 30 mL/min/1.73m2 Critically low >=[address] [facility] Comment on above: Performed By: #### C MP ####[facility] Cjovwwneld[address] [place] [id number]. Elba Anthony EGFR-NON AF SAUDI ARABIAN 25 mL/min/1.73m2 Critically low >=[address] [facility] Comment on above: Performed By: #### C MP ####[facility] Hnfhqplftg[address] [place] [address]Dr. Elba Anthony Globulin (S) [Mass/Vol] 4.4 g/dL Normal [facility] Comment on above: Performed By: #### C MP ####[facility] Klmjjfqjux4[address] [place] [address]Dr. Elba Anthony Glucose [Mass/Vol] 130 mg/dL Critically high 74-106 T [facility] Comment on above: Performed By: #### C MP ####[facility] Gacvslasze34[address] [place] [id number]. Elba Anthony Potassium [Moles/Vol] 3.9 mmol/L Normal 3.5-5.[address] [facility] Comment on above: Performed By: #### C MP ####[facility] Xumclwiyhv3024 [place] [id number]. Elba Anthony Protein [Mass/Vol] 7.2 g/dL Normal 6.4-8.2 [facility] Comment on above: Performed By: #### C MP ####[facility] Awbnhlwsqn9539 [place] [id number]. Elba Anthony Sodium [Moles/Vol] 135 mmol/L Critically low 136-145 Th [facility] Comment on above: Performed By: #### C MP ####[facility] Nqddwktzhr[address] [place] [address]Dr. Elba Anthony Urea nitrogen [Mass/Vol] 41.0 mg/dL Critically high 7.0-18.0 [facility] Comment on above: Performed By: #### C MP ####[facility] Peojrcfnft[address] [place] [address]Dr. Elba Anthony Urea nitrogen/Creatinine [Mass ratio] 15.8 mg/mg Normal [facility] Comment on above: Performed By: #### C MP ####[facility] Bbuaoumelt[address] [place], [place] [address]Dr. Elba Anthony XR CHEST 1 Von 04-01-2022 XR CHEST 1 V Normal [facility] BNPon 01-07-2022 Natriuretic peptide B (Bld) [Mass/Vol] 9964.0 pg/mL Critically high <=900.0 [facility] Comment on above: Performed By: #### C MP, BNP ####[facility] Fiaskdqvur[address] [place], [place] [address]Dr. Elba Anthony CBC W MANUAL DIFFon 01-08-20 22 ATYPICAL LYMPH # Normal [facility] Comment on above: Performed By: #### C BCMAN ####[facility] Adjjppjdpc[address] [place], [place] [address]Dr. Elba Anthony ATYPICAL LYMPH % Normal [facility] Comment on above: Performed By: #### C BCMAN ####[facility] Wgyykqbtqj7[address] [place], [place] [address]Dr. Elba Anthony BAND # 0.1 103/ul Normal 0.0-0.3 [facility] Comment on above: Performed By: #### C BCMAN ####[facility] Xefthxjjsk[address] [place], [place] [address]Dr. Elba Anthony BAND % 1 % Normal 0-5 [facility] Comment on above: Performed By: #### C BCMAN ####[facility] Elziovojyh67[address] [place], [place] [address]Dr. Elba Anthony BASOM # 0.00 103/ul Normal 0.00-0.10 [facility] Comment on above: Performed By: #### C ADALGISA ####[facility] [address] [place] [address]Dr. Elba Anthony BASOM % 0.0 % Critically low 0.2-2.[address] [facility] Comment on above: Performed By: #### C ADALGISA ####[facility] Umpsksvudj[address] [place] [address]Dr. Elba Anthony BLAST # Normal [facility] Comment on above: Performed By: #### C BCVINCENT ####[facility] Ohplctiugq[address] [place] [address]Dr. Elba Anthony BLAST % Normal [facility] Comment on above: Performed By: #### C ADALGISA ####[facility] Ocaoccbzwm[address] [place], [place] [address]Dr. Elba Anthony CORRECTED WBC Normal 4.0-11.[address] [facility] Comment on above: Performed By: #### C ADALGISA ####[facility] Jkixjhkjcs0864[address] [place], [place] [address]Dr. Elba Anthony EOS # 0.07 103/ul Normal 0.00-0.[address] [facility] Comment on above: Performed By: #### C ADALGISA ####[facility] Fyujuhseld[address] [place], [place] [address]Dr. Elba Anthony EOS% 1.0 % Normal 0.9-7.[address] [facility] Comment on above: Performed By: #### C ADALGISA ####[facility] Kyrjshibut[address] [place], [place] [address]Dr. Elba Anthony HCT 33.4 % Critically low 42.0-54.0 [facility] Comment on above: Performed By: #### C ADALGISA ####[facility] Eawwwzndix77[address] [place], [place] [address]Dr. Elba Anthony HGB 9.8 g/dl Critically low 14.0-18.[address] [facility] Comment on above: Performed By: #### C ADALGISA ####[facility] Lfnqxxodnl258[address] [place], [place] [address]Dr. Elba Anthony LYMPHM # 0.44 103/ul Critically low 1.20-3.[address] [facility] Comment on above: Performed By: #### C ADALGISA ####[facility] Ezwwmtxpli[address] [place] [address]Dr. Elba Anthony LYMPHM% 6.0 % Critically low 20.5-60.[address] [facility] Comment on above: Performed By: #### C ADALGISA ####[facility] Lzqcuxppoz[address] [place] [address]Dr. Elba Anthony MCH 24.1 pg Critically low 25.9-34.[address] [facility] Comment on above: Performed By: #### C ADALGISA ####[facility] Kctdelitgm[address] [place], [place] [address]Dr. Elba Anthony MCHC 29.3 g/dl Critically low 29.9-35.2 [facility] Comment on above: Performed By: #### C ADALGISA ####[facility] Hchjxktivg38[address] [place], [place] [address]Dr. Elba Anthony MCV 82.1 fL Normal 80.0-94.0 [facility] Comment on above: Performed By: #### C ADALGISA ####[facility] Pddrvsiqzl[address] [place], [place] [address]Dr. Elba Anthony METAMYELOCYTE # Normal [facility] Comment on above: Performed By: #### C ADALGISA ####[facility] Ojjuqwjcns[address] [place], [place] [address]Dr. Elba Anthony METAMYELOCYTE % Normal [facility] Comment on above: Performed By: #### C ADALGISA ####[facility] Kyakptnkol654[address] [place], [place] [address]Dr. Elba Anthony MONOM# 0.52 103/ul Normal 0.30-0.80 [facility] Comment on above: Performed By: #### C ADALGISA ####[facility] Trvieciwqm[address] [place], [place] [address]Dr. Elba Anthony MONOM% 7.0 % Normal 1.7-12.[address] [facility] Comment on above: Performed By: #### C ADALGISA ####[facility] Ulhlouinmx35[address] [place], [place] [address]Kp. Elba Anthony MPV 9.5 fL Normal 9.5-13.5 [facility] Comment on above: Performed By: #### C ADALGISA ####[facility] Zddnqfmghc0742 [place], [place] [address]Xb. Elba Anthony MYELOCYTE # Normal [facility] Comment on above: Performed By: #### C ADALGISA ####[facility] B[address]ky[address] [place] [id number]. Elba Anthony MYELOCYTE % Normal [facility] Comment on above: Performed By: #### C ADALGISA ####[facility] Yxsywwlzxe33[address] [place] [id number]. Elba Anthony NRBC Normal [facility] Comment on above: Performed By: #### C ADALGISA ####[facility] Fkylrqmxmw8096 [place] [id number]. Elba Anthony PLT 247 103/ul Normal 150-450 [facility] Comment on above: Performed By: #### C ADALGISA ####[facility] Qhywkuqfks78[address] [place] [id number]. Elba Anthony RBC 4.07 106/ul Critically low 4.70-6.10 [facility] Comment on above: Performed By: #### C ADALGISA ####[facility] Ndvpmsgzsq7842 [place] [id number]. Elba Anthony RDW 18.7 % Critically high 11.0-15.0 [facility] Comment on above: Performed By: #### C ADALGISA ####[facility] Oolswfuzzz2185 [place] [id number]. Elba Anthony SEG # 6.29 103/ul Normal 1.40-6.50 [facility] Comment on above: Performed By: #### C ADALGISA ####[facility] Bmqwaigqrx5078 [place] [id number]. Elba Anthony SEG % 85.0 % Critically high 43.0-75.0 [facility] Comment on above: Performed By: #### C ADALGISA ####[facility] Lyvxhqozri7[address] [place], [place] [address]Dr. Elba Raj WBC 7.4 103/ul Normal 4.0-11.0 [facility] Comment on above: Performed By: #### C BCMAN ####[facility] Upyduwvjdd9[address] [place], [place] [address]Dr. Nereydasiobhan Raj ER URINE PROFILEon 2 Bilirubin Ql (U) Negative Normal NEGATIVE [facility] Comment on above: Performed By: #### E RUR ####[facility] Qvyjkqjstx10[address] [place], [place] [address]Dr. Elba Anthony Clarity (U) CLEAR Normal CLEAR [facility] Comment on above: Performed By: #### E RUR ####[facility] Vvezgphudc[address] [place], [place] [address]Dr. Elba Anthony Color (U) LT. YELLOW Normal YELLOW [facility] Comment on above: Performed By: #### E RUR ####[facility] Lahcljnoos[address] [place], [place] [address]Dr. Elba Anthony ERUAHD A micrscopic examina tion will be performed if indicated. Normal [facility] Comment on above: Performed By: #### E RUR ####[facility] Dpyblzvnix037[address] [place], [place] [address]Dr. Nereydasiobhan Raj Glucose Ql (U) Negative Normal NEGATIVE [facility] Comment on above: Performed By: #### E RUR ####[facility] Fslcmlqwby659[address] [place], [place] [address]Dr. Elba Anthony Hemoglobin Ql (U) Negative Normal NEGATIVE [facility] Comment on above: Performed By: #### E RUR ####[facility] Nogcxhdxxc645[address] [place], [place] [address]Dr. Elba Anthony Ketones Ql (U) Negative Normal NEGATIVE [facility] Comment on above: Performed By: #### E RUR ####[facility] Zvthiygpys184[address] [place], [place] [address]Dr. Elba Anthony LEUKOCYTES Negative Normal NEGATIVE [facility] Comment on above: Performed By: #### E RUR ####[facility] Vknqoipgoc[address] [place] [address]Dr. Elba Anthony Nitrite Ql (U) Negative Normal NEGATIVE [facility] Comment on above: Performed By: #### E RUR ####[facility] Uclkdjzged234[address] [place], [place] [address]Dr. Elba Anthony pH (U) 5.0 [pH] Normal 5-[address] [facility] Comment on above: Performed By: #### E RUR ####[facility] Tcukxauebw[address]64[address] [place], [place] [address]Dr. Elba Anthony SPEC GRAVITY <=1.005 Abnormal 1.005-<=1.[address] [facility] Comment on above: Performed By: #### E RUR ####[facility] Xdmgfwxkqs655[address] [place], [place] [address]Dr. Elba Anthony UA PROTEIN Negative Normal NEGATIVE/ TRACE [facility] Comment on above: Performed By: #### E RUR ####[facility] Colyskhlmg3087[address] [place], [place] [address]Dr. Elba Anthony UR MICRO IND NOT INDICATED Normal [facility] Comment on above: Performed By: #### E RUR ####[facility] Fgzhbpmchx17[address] [place], [place] [address]Dr. Elba Anthony Urobilinogen Qn (U) 0.2 {Caden'U}/dL Normal 0.2 - 1. [address] [facility] Comment on above: Performed By: #### E RUR ####[facility] Bjldbijupj007[address] [place], [place] [address]Dr. Elba Anthony PROF 14(COMP METB)on 022 Albumin [Mass/Vol] 2.9 g/dL Critically low 3.4-5.0 [facility] Comment on above: Performed By: #### C MP, BNP ####[facility] Qdwblltvrt0920[address] [place], [place] [address]Dr. Elba Anthony Albumin/Globulin [Mass ratio] 0.6 {ratio} Normal [facility] Comment on above: Performed By: #### C MP, BNP ####[facility] Qgxrjlrhkx[address] [place] [address]Dr. Elba Anthony ALP [Catalytic activity/Vol] 105 U/L Normal 46-[address] [facility] Comment on above: Performed By: #### C MP, BNP ####[facility] Bmjrjezjbd8[address] [place], [place] [address]Dr. Elba Anthony ALT [Catalytic activity/Vol] 27 U/L Normal 16-[address] [facility] Comment on above: Performed By: #### C MP, BNP ####[facility] Jyyenpcslm9710[address] [place], [place] [address]Dr. Elba Anthony Anion gap [Moles/Vol] 10.7 mmol/L Normal [facility] Comment on above: Performed By: #### C MP, BNP ####[facility] Mjkfuxjpdq224[address] [place], [place] [address]Dr. Elba Anthony AST [Catalytic activity/Vol] 20 U/L Normal 15-[address] [facility] Comment on above: Performed By: #### C MP, BNP ####[facility] Yzxcrpqyli0570[address] [place], [place] [address]Dr. Elba Anthony Bilirubin [Mass/Vol] 1.1 mg/dL Critically high 0.2-1.[address] [facility] Comment on above: Performed By: #### C MP, BNP ####[facility] Vzbekrlwdu8949[address] [place], [place] [address]Dr. Elba Anthony Calcium [Mass/Vol] 8.2 mg/dL Critically low 8.5-10.1 [facility] Comment on above: Performed By: #### C MP, BNP ####[facility] Coqfxwwlbd577[address] [place], [place] [address]Dr. Elba Anthony Chloride [Moles/Vol] 99 mmol/L Normal 98-107 [facility] Comment on above: Performed By: #### C MP, BNP ####[facility] Mytgdkfaao8547[address] [place], [place] [address]Dr. Elba Anthony CO2 [Moles/Vol] 28.6 mmol/L Normal 21.0-32.[address] [facility] Comment on above: Performed By: #### C MP, BNP ####[facility] Ajezxsmtet[address] [place] [address]Dr. Elba Anthony Creatinine [Mass/Vol] 2.06 mg/dL Critically high 0.70-1.[address] [facility] Comment on above: Performed By: #### C MP, BNP ####[facility] Klxgvlldzd163[address] [place], [place] [address]Dr. Elba Anthony EGFR-AF SAUDI ARABIAN 39 mL/min/1.73m2 Critically low >=[address] [facility] Comment on above: Performed By: #### C MP, BNP ####[facility] Rjqoqgxkgx[address]16[address] [place], [place] [address]Dr. Elba Anthony EGFR-NON AF SAUDI ARABIAN 32 mL/min/1.73m2 Critically low >=[address] [facility] Comment on above: Performed By: #### C MP, BNP ####[facility] Rvslivioyj[address] [place], [place] [address]Dr. lEba Anthoyn Globulin (S) [Mass/Vol] 4.6 g/dL Normal [facility] Comment on above: Performed By: #### C MP, BNP ####[facility] Dtpimsrlkg614[address] [place], [place] [address]Dr. Elba Anthony Glucose [Mass/Vol] 113 mg/dL Critically high 74-106 T [facility] Comment on above: Performed By: #### C MP, BNP ####[facility] Gaplhoskdo3[address] [place], [place] [address]Dr. Nereydasiobhan Anthony Potassium [Moles/Vol] 4.3 mmol/L Normal 3.5-5.[address] [facility] Comment on above: Performed By: #### C MP, BNP ####[facility] Furpxrxrya1737[address] [place], [place] [address]Dr. Elba Anthony Protein [Mass/Vol] 7.5 g/dL Normal 6.1-8.[address] [facility] Comment on above: Performed By: #### C MP, BNP ####[facility] Gcwyxajkao[address] [place], [place] [address]Dr. Nereydasiobhan Anthony Sodium [Moles/Vol] 134 mmol/L Critically low 136-145 Th [facility] Comment on above: Performed By: #### C MP, BNP ####[facility] Pqigzrvdcc35[address] [place] [id number]. Elba Anthony Urea nitrogen [Mass/Vol] 48.0 mg/dL Critically high 7.0-18.0 [facility] Comment on above: Performed By: #### C MP, BNP ####[facility] Feqfimngyu7440 [place] [id number]. Nereydasiobhan Anthony Urea nitrogen/Creatinine [Mass ratio] 23.3 mg/mg Normal [facility] Comment on above: Performed By: #### C MP, BNP ####[facility] Uciaevdyhn85[address] [place] [id number]. Elba Anthony US ARLIN DOP LEG LTon 01-08-20 US ARLIN DOP LEG LT Normal [facility] XR CHEST 1 Von 01-07-2022 XR CHEST 1 V Normal [facility] CBC AUTO DIFFon 12-17-2021 BASO # 0.0 103/ul Normal 0.0-0.1 [facility] Comment on above: Performed By: #### C BC ####[facility] Sowiboyovl[address] [place], [place] [address]Dr. Elba Raj Basophils/100 WBC (Bld) 0.1 % Critically low 0.2-2.0 [facility] Comment on above: Performed By: #### C BC ####[facility] Fpllyxhdsh[address] [place], [place] [address]Dr. Elba Anthony EO # 0.1 103/ul Normal 0.0-0.7 [facility] Comment on above: Performed By: #### C BC ####[facility] Cwak[address]pvl[address] [place], [place] [id number]. Elba Raj Eosinophils/100 WBC (Bld) 1.2 % Normal 0.9-7.0 [facility] Comment on above: Performed By: #### C BC ####[facility] Ttyhylxhoq78[address] [place] [id number]. Nereydasiobhan Anthoyn Erythrocyte distribution width (RBC) [Ratio] 18.6 % Critically high 11.0-15.0 [facility] Comment on above: Performed By: #### C BC ####[facility] Olchqzgqxz[address] [place] [address]Dr. Elba Anthony Hematocrit (Bld) [Volume fraction] 29.8 % Critically low 42.0-54.[address] [facility] Comment on above: Performed By: #### C BC ####[facility] Rqkxzhfbpm83[address] [place] [address]Dr. Elba Raj Hemoglobin (Bld) [Mass/Vol] 9.0 g/dL Critically low 14.0-18.[address] [facility] Comment on above: Performed By: #### C BC ####[facility] Arpinfarvg[address] [place], [place] [address]DrLatoya Anthony IG # 0.05 10e3/ul Critically high 0.00-0.[address] [facility] Comment on above: Performed By: #### C BC ####[facility] Tplrzbgham[address] [place], [place] [address]DrLatoya Anthony IG % 0.6 % Critically high 0.0-0.[address] [facility] Comment on above: Performed By: #### C BC ####[facility] Lfzclmuzod[address] [place], [place] [address]DrLatoya Anthony LYMPH # 0.4 103/ul Critically low 1.2-3.[address] [facility] Comment on above: Performed By: #### C BC ####[facility] Jxsjcihecj57[address] [place], [place] [address]DrLatoya Anthony Lymphocytes/100 WBC (Bld) 4.0 % Critically low 20.5-60.[address] [facility] Comment on above: Performed By: #### C BC ####[facility] Ubietsvgou4[address] [place], [place] [address]DrLatoya Nereydasiobhan Anthony MANUAL DIFF REQ NO Normal [facility] Comment on above: Performed By: #### C BC ####[facility] Zchbuwqsif108[address] [place], [place] [address]DrLatoya Anthony MCH (RBC) [Entitic mass] 25.2 pg Critically low 25.9-34.[address] [facility] Comment on above: Performed By: #### C BC ####[facility] Aehydcofna4[address] [place] [id number]. Nereydasiobhan Anthony MCHC (RBC) [Mass/Vol] 30.2 g/dL Normal 29.9-35.[address] [facility] Comment on above: Performed By: #### C BC ####[facility] Rkcaggtten7424 [place] [id number]. Elba Anthony MCV (RBC) [Entitic vol] 83.5 fL Normal 80.0-94.[address] [facility] Comment on above: Performed By: #### C BC ####[facility] Vdbqoqjcgb7534 [place] [id number]. Elba Anthony MONO # 0.9 103/ul Critically high 0.3-0.[address] [facility] Comment on above: Performed By: #### C BC ####[facility] Vaavbuezbw15[address] [place], [place] [address]Dr. Elba Anthony Monocytes/100 WBC (Bld) 9.7 % Normal 1.7-12.[address] [facility] Comment on above: Performed By: #### C BC ####[facility] Orzdaeqjnn107[address] [place], [place] [address]Dr. Elba Anthony NEUT # 7.6 103/ul Critically high 1.4-6.[address] [facility] Comment on above: Performed By: #### C BC ####[facility] Akgqwkuvwk9839[address] [place], [place] [address]Dr. Elba Anthony Neutrophils/100 WBC (Bld) 84.4 % Critically high 43.0-75.0 [facility] Comment on above: Performed By: #### C BC ####[facility] Iudzzsnyqm[address] [place], [place] [id number] Anthony Platelet mean volume (Bld) [Entitic vol] 10.0 fL Normal 9.5-13.5 [facility] Comment on above: Performed By: #### C BC ####[facility] Huuscjomjq[address] [place], [place] [id number]. Elba Anthony PLT 154 103/ul Normal 150-450 [facility] Comment on above: Performed By: #### C BC ####[facility] Uyghtrcbtv[address] [place] [address]Dr. Elba Anthony RBC 3.57 106/ul Critically low 4.70-6.[address] [facility] Comment on above: Performed By: #### C BC ####[facility] Fkieipwyjx30[address] [place] [address]Dr. Elba Anthony WBC 9.0 103/ul Normal 4.0-11.[address] [facility] Comment on above: Performed By: #### C BC ####[facility] Oqimboqprm3[address] [place] [address]Dr. Elba Anthony PROF 14(COMP METB)on 022 Albumin [Mass/Vol] 2.3 g/dL Critically low 3.4-5.0 [facility] Comment on above: Performed By: #### C MP ####[facility] Jnidkrgkqf[address] [place], [place] [address]Dr. Elba Anthony Albumin/Globulin [Mass ratio] 0.6 {ratio} Normal [facility] Comment on above: Performed By: #### C MP ####[facility] Uswmwdfuio[address] [place], [place] [address]Dr. Elba Anthony ALP [Catalytic activity/Vol] 75 U/L Normal 46-[address] [facility] Comment on above: Performed By: #### C MP ####[facility] Extjntqtve239[address] [place], [place] [address]Dr. Elba Anthony ALT [Catalytic activity/Vol] 30 U/L Normal 16-[address] [facility] Comment on above: Performed By: #### C MP ####[facility] Offpwwboka85[address] [place], [place] [address]Dr. Elba Anthony Anion gap [Moles/Vol] 11.6 mmol/L Normal [facility] Comment on above: Performed By: #### C MP ####[facility] Pmubwygctc[address] [place], [place] [address]Dr. Elba Anthony AST [Catalytic activity/Vol] 26 U/L Normal 15-[address] [facility] Comment on above: Performed By: #### C MP ####[facility] Pttowilepy3[address] [place] [id number]. Elba Anthony Bilirubin [Mass/Vol] 0.9 mg/dL Normal 0.2-1.[address] [facility] Comment on above: Performed By: #### C MP ####[facility] [address] [place] [address]Dr. Elba Anthony Calcium [Mass/Vol] 8.1 mg/dL Critically low 8.5-10.1 Th [facility] Comment on above: Performed By: #### C MP ####[facility] Uxxenvwpgz[address] [place], [place] [address]Dr. Elba Anthony Chloride [Moles/Vol] 101 mmol/L Normal 98-[address] [facility] Comment on above: Performed By: #### C MP ####[facility] Nnszvsshka[address] [place], [place] [address]Dr. Elba Anthony CO2 [Moles/Vol] 26.2 mmol/L Normal 22.0-30.[address] [facility] Comment on above: Performed By: #### C MP ####[facility] Onkluuapkc344[address] [place], [place] [address]Dr. Elba Anthony Creatinine [Mass/Vol] 2.26 mg/dL Critically high 0.66-1.[address] [facility] Comment on above: Performed By: #### C MP ####[facility] Ibuhhaxson[address] [place], [place] [address]Dr. Elba Anthony EGFR-AF SAUDI ARABIAN 35 mL/min/1.73m2 Critically low >=60 [facility] Comment on above: Performed By: #### C MP ####[facility] Htlieekuzh[address] [place], [place] [address]Dr. Elba Anthony EGFR-NON AF SAUDI ARABIAN 29 mL/min/1.73m2 Critically low >=[address] [facility] Comment on above: Performed By: #### C MP ####[facility] Nyszgkhevy[address] [place], [place] [address]Dr. Elba Anthony Globulin (S) [Mass/Vol] 4.1 g/dL Normal [facility] Comment on above: Performed By: #### C MP ####[facility] [address]ktorwvh[address] [place] [id number]. Elba Anthony Glucose [Mass/Vol] 110 mg/dL Critically high 74-106 T [facility] Comment on above: Performed By: #### C MP ####[facility] Qslovmbulz[address] [place] [id number]. Elba Anthony Potassium [Moles/Vol] 3.8 mmol/L Normal 3.4-5.[address] [facility] Comment on above: Performed By: #### C MP ####[facility] Awbcthcuex[address] [place] [address]Dr. Elba Anthony Protein [Mass/Vol] 6.4 g/dL Normal 6.1-8.[address] [facility] Comment on above: Performed By: #### C MP ####[facility] Qtyfbwrsyw14[address] [place], [place] [address]Dr. Elba Anthony Sodium [Moles/Vol] 135 mmol/L Critically low 137-145 [facility] Comment on above: Performed By: #### C MP ####[facility] Owpomifjpt14[address] [place], [place] [address]Dr. Elba Anthony Urea nitrogen [Mass/Vol] 49.0 mg/dL Critically high 7.0-18.[address] [facility] Comment on above: Performed By: #### C MP ####[facility] Nlrjrateol37[address] [place], [place] [address]Dr. Elba Raj Urea nitrogen/Creatinine [Mass ratio] 21.7 mg/mg Normal [facility] Comment on above: Performed By: #### C MP ####[facility] Awalwsdkcc9[address] [place], [place] [address]Dr. Elba Anthony BLOOD CULTURE ID/SENSon 04- Aerobe ID + Suscept Final report Abnormal [facility] Comment on above: Performed By: #### C XPOSBL ####[facility] Mzlqkurgan[address] [place], [place] [address]Dr. Elba Anthony Antimicrobial Susceptibility Comment Normal [facility] Comment on above: Result Comment: S = Susceptible; I = Intermediate; R = Resistant P = Positive; N = Negative MICS are expressed in micrograms per mL Antibiotic RSLT#1 RSLT#2 RSLT#3 RSLT#4Amikacin SCefepime SCeftazidime SCiprofloxacin SGentamicin SImipenem SLevofloxacin SMeropenem SPiperacillin STicarcillin STobramycin S Performed By: #### C XPOSBL ####[facility] Qcznpmhrwf6[address] [place], [place] [address]Dr. Elba Anthony Result 1 Comment Abnormal [facility] Comment on above: Result Comment: Pseu domonas aeruginosaReceived aerobic bottle only. Performed By: #### C XPOSBL ####[facility] Pkeuoyikbh[address] [place], [place] [address]Dr. Elba Anthony Result Comment: Pseu domonas aeruginosaReceived anaerobic bottle only. CBC AUTO DIFFon 12-16-2021 BASO # 0.0 103/ul Normal 0.0-0.[address] [facility] Comment on above: Performed By: #### C BC ####[facility] Jaxxyrhvmp[address] [place], [place] [address]Dr. Elba Anthony Basophils/100 WBC (Bld) 0.3 % Normal 0.2-2.0 [facility] Comment on above: Performed By: #### C BC ####[facility] Sfxmxqrhkz29[address] [place], [place] [address]Dr. Elba Anthony EO # 0.1 103/ul Normal 0.0-0.7 [facility] Comment on above: Performed By: #### C BC ####[facility] Nokrzbuuui6360[address] [place], [place] [address]Dr. Elba Anthony Eosinophils/100 WBC (Bld) 1.7 % Normal 0.9-7.0 [facility] Comment on above: Performed By: #### C BC ####[facility] Gtoeiybedx9877[address] [place], [place] [address]Dr. Elba Anthony Erythrocyte distribution width (RBC) [Ratio] 18.8 % Critically high 11.0-15.0 [facility] Comment on above: Performed By: #### C BC ####[facility] [address] [place] [address]Dr. Elba Anthony Hematocrit (Bld) [Volume fraction] 28.8 % Critically low 42.0-54.0 [facility] Comment on above: Performed By: #### C BC ####[facility] Nxdydpwmle8232[address] [place], [place] [address]Dr. Elba Anthony Hemoglobin (Bld) [Mass/Vol] 8.6 g/dL Critically low 14.0-18.0 [facility] Comment on above: Performed By: #### C BC ####[facility] Ezftrlqdlt899[address] [place], [place] [address]Dr. Elba Anthony IG # 0.05 10e3/ul Critically high 0.00-0.[address] [facility] Comment on above: Performed By: #### C BC ####[facility] Gwkzsfzbbw9[address] [place], [place] [address]Dr. Elba Anthony IG % 0.7 % Critically high 0.0-0.[address] [facility] Comment on above: Performed By: #### C BC ####[facility] Vtuutmwisp945[address] [place], [place] [address]Dr. Elba Anthony LYMPH # 0.4 103/ul Critically low 1.2-3.[address] [facility] Comment on above: Performed By: #### C BC ####[facility] Ygypdrtelx[address] [place], [place] [address]Dr. Elba Anthony Lymphocytes/100 WBC (Bld) 5.4 % Critically low 20.5-60.0 [facility] Comment on above: Performed By: #### C BC ####[facility] Lzwopntttk235[address] [place], [place] [address]Dr. Elba Anthony MANUAL DIFF REQ NO Normal [facility] Comment on above: Performed By: #### C BC ####[facility] Obgwqqealw9907[address] [place], [place] [address]Dr. Elba Anthony MCH (RBC) [Entitic mass] 25.0 pg Critically low 25.9-34.0 [facility] Comment on above: Performed By: #### C BC ####[facility] [address]mbudeipo[address] [place] [id number]. Elba Anthony MCHC (RBC) [Mass/Vol] 29.9 g/dL Normal 29.9-35.2 [facility] Comment on above: Performed By: #### C BC ####[facility] [address]ximho[address] [place] [id number]. Elba Anthony MCV (RBC) [Entitic vol] 83.7 fL Normal 80.0-94.0 [facility] Comment on above: Performed By: #### C BC ####[facility] Gnaq[address]bjr[address] [place] [id number]. Elba Anthony MONO # 0.7 103/ul Normal 0.3-0.8 [facility] Comment on above: Performed By: #### C BC ####[facility] Pzrvsugzmf[address] [place], [place] [id number]. Elba Anthony Monocytes/100 WBC (Bld) 10.2 % Normal 1.7-12.0 [facility] Comment on above: Performed By: #### C BC ####[facility] Tgajzobgak[address] [place], [place] [id number]. Elba Anthony NEUT # 5.9 103/ul Normal 1.4-6.5 [facility] Comment on above: Performed By: #### C BC ####[facility] Qglcwoapxi[address] [place] [id number]. Nereydasiobhan Anthony Neutrophils/100 WBC (Bld) 81.7 % Critically high 43.0-75.0 [facility] Comment on above: Performed By: #### C BC ####[facility] Senzztehwv[address] [place], [place] [address]Dr. Elba Anthony Platelet mean volume (Bld) [Entitic vol] 10.8 fL Normal 9.5-13.5 [facility] Comment on above: Performed By: #### C BC ####[facility] [address]zduj[address] [place] [id number]. Elba Raj PLT 150 103/ul Normal 150-450 [facility] Comment on above: Performed By: #### C BC ####[facility] Z[address]wpspesn[address] [place] [id number]. Elba Anthony RBC 3.44 106/ul Critically low 4.70-6.[address] [facility] Comment on above: Performed By: #### C BC ####[facility] L[address]zovhv[address] [place] [address]Dr. Elba Anthony WBC 7.2 103/ul Normal 4.0-11.[address] [facility] Comment on above: Performed By: #### C BC ####[facility] Czocsdxopy[address] [place] [address]Dr. Elba Anthony PROF 14(COMP METB)on 022 Albumin [Mass/Vol] 2.3 g/dL Critically low 3.4-5.0 [facility] Comment on above: Performed By: #### C MP ####[facility] Mxcgnnfoqx[address] [place], [place] [address]Dr. Elba Anthony Albumin/Globulin [Mass ratio] 0.6 {ratio} Normal [facility] Comment on above: Performed By: #### C MP ####[facility] Ftvfpctmst6[address] [place], [place] [address]Dr. Elba Anthony ALP [Catalytic activity/Vol] 77 U/L Normal 46-[address] [facility] Comment on above: Performed By: #### C MP ####[facility] Bijunkoqhl137[address] [place], [place] [address]Dr. Elba Anthony ALT [Catalytic activity/Vol] 26 U/L Normal 16-[address] [facility] Comment on above: Performed By: #### C MP ####[facility] Skqwsrebdn[address] [place], [place] [address]Dr. Elba Anthony Anion gap [Moles/Vol] 12.3 mmol/L Normal [facility] Comment on above: Performed By: #### C MP ####[facility] Qokdhebzgk27[address] [place], [place] [address]Dr. Elba Anthony AST [Catalytic activity/Vol] 23 U/L Normal 15-[address] [facility] Comment on above: Performed By: #### C MP ####[facility] P[address]qhbsfbx4[address] [place] [id number]. Elba Anthony Bilirubin [Mass/Vol] 0.8 mg/dL Normal 0.2-1.3 [facility] Comment on above: Performed By: #### C MP ####[facility] Frqqorudun37[address] [place] [id number]. Elba Anthony Calcium [Mass/Vol] 8.0 mg/dL Critically low 8.5-10.1 Th [facility] Comment on above: Performed By: #### C MP ####[facility] Juljhfcjqi8[address] [place] [id number]. Elba Anthony Chloride [Moles/Vol] 101 mmol/L Normal 98-[address] [facility] Comment on above: Performed By: #### C MP ####[facility] Hotulqkgmo89[address] [place], [place] [address]Dr. Elba Anthony CO2 [Moles/Vol] 25.8 mmol/L Normal 22.0-30.0 [facility] Comment on above: Performed By: #### C MP ####[facility] Naxavqnuud[address] [place], [place] [address]Dr. Elba Anthony Creatinine [Mass/Vol] 2.72 mg/dL Critically high 0.66-1.[address] [facility] Comment on above: Performed By: #### C MP ####[facility] [address]mfira[address] [place] [id number]. Elba Anthony EGFR-AF SAUDI ARABIAN 28 mL/min/1.73m2 Critically low >=60 [facility] Comment on above: Performed By: #### C MP ####[facility] Zmbhqdpvek[address] [place] [id number]. Elba Anthony EGFR-NON AF SAUDI ARABIAN 23 mL/min/1.73m2 Critically low >=60 [facility] Comment on above: Performed By: #### C MP ####[facility] Zteywqzpyu66[address] [place] [id number]. Elba Anthony Globulin (S) [Mass/Vol] 4.1 g/dL Normal [facility] Comment on above: Performed By: #### C MP ####[facility] Jvzyfhvtsh87[address] [place] [id number]. Elba Anthony Glucose [Mass/Vol] 130 mg/dL Critically high 74-106 T [facility] Comment on above: Performed By: #### C MP ####[facility] Leeguthorf[address] [place] [id number]. Elba Anthony Potassium [Moles/Vol] 4.1 mmol/L Normal 3.4-5.[address] [facility] Comment on above: Performed By: #### C MP ####[facility] Cydkcqglrj5[address] [place] [id number]. Elba Anthony Protein [Mass/Vol] 6.4 g/dL Normal 6.1-8.[address] [facility] Comment on above: Performed By: #### C MP ####[facility] Yj[address]kufyfg[address] [place] [address]Dr. Elba Anthony Sodium [Moles/Vol] 135 mmol/L Critically low 137-145 Th [facility] Comment on above: Performed By: #### C MP ####[facility] Tckhdkddkp3832[address] [place], [place] [address]Dr. Elba Anthony Urea nitrogen [Mass/Vol] 60.0 mg/dL Critically high 7.0-18.[address] [facility] Comment on above: Performed By: #### C MP ####[facility] Jexrwuphnz[address] [place] [address]Dr. Elba Anthony Urea nitrogen/Creatinine [Mass ratio] 22.1 mg/mg Normal [facility] Comment on above: Performed By: #### C MP ####[facility] Bnzlrfowbn4[address] [place] [address]Dr. Elba Anthony BNPon 12-15-2021 Natriuretic peptide B (Bld) [Mass/Vol] 02377.0 pg/mL Critically high <=900.[address] [facility] Comment on above: Result Comment: Test Repeated. Critical Value Verified Performed By: #### C MP, BNP, CRP ####[facility] Lnsswrvyyh[address] [place], [place] [address]Dr. Elba Anthony CBC AUTO DIFFon 04-09-2022 BASO # 0.0 103/ul Normal 0.0-0.1 [facility] Comment on above: Performed By: #### C BC ####[facility] Pjsxvuluhp[address] [place] [address]Dr. Elba Anthony Basophils/100 WBC (Bld) 0.2 % Normal 0.2-2.0 [facility] Comment on above: Performed By: #### C BC ####[facility] Cvniqcdpiv[address] [place], [place] [address]Dr. Elba Anthony EO # 0.1 103/ul Normal 0.0-0.7 [facility] Comment on above: Performed By: #### C BC ####[facility] Apwkjargom[address] [place], [place] [address]Dr. Elba Anthony Eosinophils/100 WBC (Bld) 1.3 % Normal 0.9-7.0 [facility] Comment on above: Performed By: #### C BC ####[facility] Oywcvjstcq[address] [place], [place] [address]Dr. Elba Anthony Erythrocyte distribution width (RBC) [Ratio] 19.0 % Critically high 11.0-15.[address] [facility] Comment on above: Performed By: #### C BC ####[facility] Aonknynrow[address] [place], [place] [address]Dr. Elba Anthony Hematocrit (Bld) [Volume fraction] 28.7 % Critically low 42.0-54.[address] [facility] Comment on above: Performed By: #### C BC ####[facility] [address]qofgipkf[address] [place], [place] [address]Dr. Elba Anthony Hemoglobin (Bld) [Mass/Vol] 8.7 g/dL Critically low 14.0-18.0 [facility] Comment on above: Performed By: #### C BC ####[facility] Scluqilbkm[address] [place], [place] [address]Dr. Elba Anthony IG # 0.04 10e3/ul Critically high 0.00-0.03 [facility] Comment on above: Performed By: #### C BC ####[facility] Yxzillfofp[address] [place], [place] [address]Dr. Elba Anthony IG % 0.5 % Normal 0.0-0.[address] [facility] Comment on above: Performed By: #### C BC ####[facility] Xmhxdcxlfw[address] [place] [address]DrLatoya Anthony LYMPH # 0.4 103/ul Critically low 1.2-3.[address] [facility] Comment on above: Performed By: #### C BC ####[facility] Erfdzpwftr[address] [place] [address]DrLatoya Anthony Lymphocytes/100 WBC (Bld) 4.2 % Critically low 20.5-60.0 [facility] Comment on above: Performed By: #### C BC ####[facility] Bboypxlypm[address] [place], [place] [address]DrLatoya Anthony MANUAL DIFF REQ NO Normal [facility] Comment on above: Performed By: #### C BC ####[facility] Dtohcvitdc9624[address] [place], [place] [address]DrLatoya Anthony MCH (RBC) [Entitic mass] 25.5 pg Critically low 25.9-34.[address] [facility] Comment on above: Performed By: #### C BC ####[facility] Zyuqdksdmb[address] [place], [place] [address]DrLatoya Anthony MCHC (RBC) [Mass/Vol] 30.3 g/dL Normal 29.9-35.2 [facility] Comment on above: Performed By: #### C BC ####[facility] Fywttkxdns[address] [place], [place] [address]DrLatoya Anthony MCV (RBC) [Entitic vol] 84.2 fL Normal 80.0-94.0 [facility] Comment on above: Performed By: #### C BC ####[facility] Pldumfqgyq[address] [place], [place] [address]DrLatoya Anthony MONO # 0.6 103/ul Normal 0.3-0.8 [facility] Comment on above: Performed By: #### C BC ####[facility] Vhzddkvcqv[address] [place], [place] [address]DrLatoya Anthony Monocytes/100 WBC (Bld) 7.5 % Normal 1.7-12.0 [facility] Comment on above: Performed By: #### C BC ####[facility] Uuytqzriau[address] [place] [address]DrLatoya Elba Anthony NEUT # 7.2 103/ul Critically high 1.4-6.5 [facility] Comment on above: Performed By: #### C BC ####[facility] Glefxvrese7[address] [place] [address]DrLatoya Anthony Neutrophils/100 WBC (Bld) 86.3 % Critically high 43.0-75.0 [facility] Comment on above: Performed By: #### C BC ####[facility] Qmtxitcftl[address] [place], [place] [address]DrLatoya Anthony Platelet mean volume (Bld) [Entitic vol] 10.7 fL Normal 9.5-13.5 [facility] Comment on above: Performed By: #### C BC ####[facility] Trqdiigady[address] [place], [place] [address]DrLatoya Anthony PLT 132 103/ul Critically low 150-450 [facility] Comment on above: Performed By: #### C BC ####[facility] Ebrherimru[address] [place], [place] [address]DrLatoya Anthony RBC 3.41 106/ul Critically low 4.70-6.10 [facility] Comment on above: Performed By: #### C BC ####[facility] Vcolospbfg[address] [place], [place] [id number] Anthony WBC 8.4 103/ul Normal 4.0-11.0 [facility] Comment on above: Performed By: #### C BC ####[facility] Piloahocfs[address] [place], [place] [address]DrLatoya Anthony CRPon 12-15-2021 CRP [Mass/Vol] mg/L Critically high <=1.0 [facility] Comment on above: Performed By: #### C MP, BNP, CRP ####[facility] Lmlqgqfevy[address] [place], [place] [address]DrLatoya Anthony PROF 14(COMP METB)on 022 Albumin [Mass/Vol] 2.4 g/dL Critically low 3.4-5.0 [facility] Comment on above: Performed By: #### C MP, BNP, CRP ####[facility] [address]qftgwclls[address] [place] [address]Dr. Elba Anthony Albumin/Globulin [Mass ratio] 0.6 {ratio} Normal [facility] Comment on above: Performed By: #### C MP, BNP, CRP ####[facility] Qtzsesewmf[address] [place] [address]Dr. Elba Anthony ALP [Catalytic activity/Vol] 75 U/L Normal 46-[address] [facility] Comment on above: Performed By: #### C MP, BNP, CRP ####[facility] Ujilqbktch[address] [place] [address]Dr. Elba Anthony ALT [Catalytic activity/Vol] 22 U/L Normal 16-[address] [facility] Comment on above: Performed By: #### C MP, BNP, CRP ####[facility] Scoiobywym[address] [place] [address]Dr. Elba Anthony Anion gap [Moles/Vol] 13.8 mmol/L Normal [facility] Comment on above: Performed By: #### C MP, BNP, CRP ####[facility] Apvjzdtass[address] [place] [address]Dr. Elba Anthony AST [Catalytic activity/Vol] 17 U/L Normal 15-[address] [facility] Comment on above: Performed By: #### C MP, BNP, CRP ####[facility] Njooyevyaw[address] [place] [address]Dr. Elba Anthony Bilirubin [Mass/Vol] 0.8 mg/dL Normal 0.2-1.[address] [facility] Comment on above: Performed By: #### C MP, BNP, CRP ####[facility] Xenmhzcdat[address] [place] [address]Dr. Elba Anthony Calcium [Mass/Vol] 7.7 mg/dL Critically low 8.5-10.1 [facility] Comment on above: Performed By: #### C MP, BNP, CRP ####[facility] Kmxsudpowf[address] [place] [address]Dr. Elba Anthony Chloride [Moles/Vol] 98 mmol/L Normal 98-[address] [facility] Comment on above: Performed By: #### C MP, BNP, CRP ####[facility] Qwrcbxqozg[address] [place] [address]Dr. Elba Anthony CO2 [Moles/Vol] 24.5 mmol/L Normal 22.0-30.[address] [facility] Comment on above: Performed By: #### C MP, BNP, CRP ####[facility] Pyvbsjqory[address] [place], [place] [address]Dr. Elba Anthony Creatinine [Mass/Vol] 3.10 mg/dL Critically high 0.66-1.[address] [facility] Comment on above: Performed By: #### C MP, BNP, CRP ####[facility] Enbfxaguat[address] [place], [place] [address]Dr. Elba Anthony EGFR-AF SAUDI ARABIAN 24 mL/min/1.73m2 Critically low >=[address] [facility] Comment on above: Performed By: #### C MP, BNP, CRP ####[facility] Siwiercpqd[address] [place], [place] [address]Dr. Elba Anthony EGFR-NON AF SAUDI ARABIAN 20 mL/min/1.73m2 Critically low >=[address] [facility] Comment on above: Performed By: #### C MP, BNP, CRP ####[facility] Btsavnlnbr[address] [place], [place] [address]Dr. Elba Anthony Globulin (S) [Mass/Vol] 4.1 g/dL Normal [facility] Comment on above: Performed By: #### C MP, BNP, CRP ####[facility] [address]kpl[address] [place] [address]Dr. Elba Anthony Glucose [Mass/Vol] 141 mg/dL Critically high 74-106 T [facility] Comment on above: Performed By: #### C MP, BNP, CRP ####[facility] Fawjucivlm[address] [place], [place] [address]Dr. Elba Anthony Potassium [Moles/Vol] 4.3 mmol/L Normal 3.4-5.[address] [facility] Comment on above: Performed By: #### C MP, BNP, CRP ####[facility] Mmbtrzgimi[address] [place] [address]Dr. Elba Anthony Protein [Mass/Vol] 6.5 g/dL Normal 6.1-8.[address] [facility] Comment on above: Performed By: #### C MP, BNP, CRP ####[facility] Zavgwfqlyl[address] [place] [address]Dr. Elba Anthony Sodium [Moles/Vol] 132 mmol/L Critically low 137-145 Th [facility] Comment on above: Performed By: #### C MP, BNP, CRP ####[facility] Bbsiralwah[address] [place], [place] [address]Dr. Elba Anthony Urea nitrogen [Mass/Vol] 62.0 mg/dL Critically high 7.0-18.[address] [facility] Comment on above: Performed By: #### C MP, BNP, CRP ####[facility] Mkyukorowe[address] [place], [place] [address]Dr. Elba Anthony Urea nitrogen/Creatinine [Mass ratio] 20.0 mg/mg Normal The [facility] Comment on above: Performed By: #### C MP, BNP, CRP ####[facility] Cjabwnuxnb7[address] [place], [place] [address]Dr. Elba Anthony UA RANDOM W/MICROSCOPICon BACTERIA TRACE Abnormal NONE SEEN The [facility] Comment on above: Performed By: #### U AMIC ####[facility] Ljmlpijnjl[address] [place], [place] [address]Dr. Elba Anthony Bilirubin Ql (U) Negative Normal NEGATIVE The [facility] Comment on above: Performed By: #### U AMIC ####[facility] Dbzqxktckx[address] [place], [place] [address]Dr. Elba Anthony CAST NONE SEEN Normal NONE SEEN The [facility] Comment on above: Performed By: #### U AMIC ####[facility] Tzgrsxbvbr53[address] [place], [place] [address]Dr. Elba Anthony Clarity (U) CLEAR Normal CLEAR The [facility] Comment on above: Performed By: #### U AMIC ####[facility] Rfkmigkofg[address] [place] [address]Dr. Elba Anthony Color (U) LT. YELLOW Normal YELLOW The [facility] Comment on above: Performed By: #### U AMIC ####[facility] Ceyqtcaqwu[address] [place] [address]Dr. Elba Anthony Crystals LM Nom (Urine sed) SEEN Abnormal NONE SEEN The [facility] Comment on above: Performed By: #### U AMIC ####[facility] Bpvnvuiuag[address] [place], [place] [address]Dr. Elba Anthony Epithelial cells LM Ql (Urine sed) RARE Normal NONE SEEN /RARE The [facility] Comment on above: Performed By: #### U AMIC ####[facility] Zlauwhfbok23[address] [place], [place] [address]Dr. Elba Anthony Glucose Ql (U) Negative Normal NEGATIVE The [facility] Comment on above: Performed By: #### U AMIC ####[facility] Duevyirzft211[address] [place], [place] [address]Dr. Elba Anthony Hemoglobin Ql (U) MODERATE Abnormal NEGATIVE The [facility] Comment on above: Performed By: #### U AMIC ####[facility] Tvvixypleq[address] [place], [place] [address]Dr. Elba Anthony Ketones Ql (U) Negative Normal NEGATIVE The [facility] Comment on above: Performed By: #### U AMIC ####[facility] Pecoremfna13[address] [place], [place] [address]Dr. Elba Anthony LEUKOCYTES Negative Normal NEGATIVE The [facility] Comment on above: Performed By: #### U AMIC ####[facility] Fitmbowhjs01[address] [place], [place] [address]Dr. Elba Anthony MUCOUS NONE SEEN Normal NONE SEEN The [facility] Comment on above: Performed By: #### U AMIC ####[facility] Tasoaifdbz[address] [place], [place] [address]Dr. Elba Anthony Nitrite Ql (U) Negative Normal NEGATIVE The [facility] Comment on above: Performed By: #### U AMIC ####[facility] Fzhrprgieo[address] [place] [address]Dr. Elba Anthony pH (U) 5.5 [pH] Normal 5-9 The [facility] Comment on above: Performed By: #### U AMIC ####[facility] Mjuenxpzkj[address] [place] [address]Dr. Elba Anthony RBC 50-75 Abnormal 0-2 The [facility] Comment on above: Performed By: #### U AMIC ####[facility] Dzblzqengd[address] [place] [address]Dr. Elba Anthony SPEC GRAVITY 1.015 Normal 1.005-<=1.[address] [facility] Comment on above: Performed By: #### U AMIC ####[facility] Gqgzfarwoh[address] [place] [address]Dr. Elba Raj UA PROTEIN Negative Normal NEGATIVE/ TRACE The [facility] Comment on above: Performed By: #### U AMIC ####[facility] Qstdpyirrj[address] [place], [place] [address]Dr. Nereydasiobhan Anthony URIC ACID CRYSTALS FEW Normal The [facility] Comment on above: Performed By: #### U AMIC ####[facility] Meelvhacey[address] [place], [place] [address]Dr. Elba Anthony Urobilinogen Qn (U) 0.2 {Caden'U}/dL Normal 0.2 - 1. 0 The [facility] Comment on above: Performed By: #### U AMIC ####[facility] Aondpmtapd50[address] [place], [place] [address]Dr. Nereydasiobhan Anthony WBC 0-2 Abnormal NONE SEEN The [facility] Comment on above: Performed By: #### U AMIC ####[facility] Zpucfccaol[address] [place], [place] [address]Dr. Elba Anthony BNPon 12-14-2021 Natriuretic peptide B (Bld) [Mass/Vol] 70858.0 pg/mL Critically high <=900.0 The [facility] Comment on above: Result Comment: test repeated Performed By: #### C RP, CMP, BNP ####[facility] [address] [place] [id number]. Nereydasiobhan Anthony CBC AUTO DIFFon 12-14-2021 BASO # 0.0 103/ul Normal 0.0-0.1 The [facility] Comment on above: Performed By: #### C BC ####[facility] Z[address]qzvcxw[address] [place] [id number]. Elba Anthony Basophils/100 WBC (Bld) 0.1 % Critically low 0.2-2.0 The [facility] Comment on above: Performed By: #### C BC ####[facility] [address]zbgfxp[address] [place] [address]Dr. Elba Anthony EO # 0.1 103/ul Normal 0.0-0.7 The [facility] Comment on above: Performed By: #### C BC ####[facility] Woengtnaur[address] [place] [address]Dr. Elba Anthony Eosinophils/100 WBC (Bld) 1.1 % Normal 0.9-7.0 The [facility] Comment on above: Performed By: #### C BC ####[facility] Uakfxirbdb[address] [place] [address]Dr. Elba Anthony Erythrocyte distribution width (RBC) [Ratio] 18.7 % Critically high 11.0-15.0 The [facility] Comment on above: Performed By: #### C BC ####[facility] M[address]yurqxit34[address] [place] [id number]. Elba Anthony Hematocrit (Bld) [Volume fraction] 28.9 % Critically low 42.0-54.0 The [facility] Comment on above: Performed By: #### C BC ####[facility] Miewtojlem[address] [place] [id number]. Elba Anthony Hemoglobin (Bld) [Mass/Vol] 8.7 g/dL Critically low 14.0-18.0 The [facility] Comment on above: Performed By: #### C BC ####[facility] Hkluaytyop[address] [place] [id number]. Elba Anthony IG # 0.04 10e3/ul Critically high 0.00-0.03 [facility] Comment on above: Performed By: #### C BC ####[facility] Dprexqgjxp[address] [place] [address]DrLatoya Anthony IG % 0.4 % Normal 0.0-0.[address] [facility] Comment on above: Performed By: #### C BC ####[facility] Oqbcblifsv[address] [place], [place] [address]DrLatoya Anthony LYMPH # 0.4 103/ul Critically low 1.2-3.[address] [facility] Comment on above: Performed By: #### C BC ####[facility] Dgmxnqnqll67[address] [place], [place] [address]DrLatoya Anthony Lymphocytes/100 WBC (Bld) 4.1 % Critically low 20.5-60.[address] [facility] Comment on above: Result Comment: dif. not rqd. same as 12/12/21 Performed By: #### C BC ####[facility] Lswfowfxxv[address] [place], [place] [address]DrLatoya Anthony MANUAL DIFF REQ NO Normal [facility] Comment on above: Performed By: #### C BC ####[facility] Byqokxikfp[address] [place], [place] [address]DrLatoya Anthony MCH (RBC) [Entitic mass] 25.3 pg Critically low 25.9-34.[address] [facility] Comment on above: Performed By: #### C BC ####[facility] Iazubwzctn[address] [place], [place] [address]DrLatoya Anthony MCHC (RBC) [Mass/Vol] 30.1 g/dL Normal 29.9-35.2 The [facility] Comment on above: Performed By: #### C BC ####[facility] Fzbtelekeo[address] [place], [place] [address]DrLatoya Anthony MCV (RBC) [Entitic vol] 84.0 fL Normal 80.0-94.[address] [facility] Comment on above: Performed By: #### C BC ####[facility] Wbsvbjdxjo[address] [place], [place] [address]DrLatoya Anthony MONO # 0.9 103/ul Critically high 0.3-0.8 The [facility] Comment on above: Performed By: #### C BC ####[facility] Ijxjqcjrqm[address] [place] [address]Dr. Elba Anthony Monocytes/100 WBC (Bld) 9.3 % Normal 1.7-12.0 The [facility] Comment on above: Performed By: #### C BC ####[facility] Pruecpvnws[address] [place] [address]Dr. Elba Anthony NEUT # 7.8 103/ul Critically high 1.4-6.5 The [facility] Comment on above: Performed By: #### C BC ####[facility] Ciqtswqnuz7[address] [place] [address]Dr. Elba Anthony Neutrophils/100 WBC (Bld) 85.0 % Critically high 43.0-75.0 The [facility] Comment on above: Performed By: #### C BC ####[facility] Hpmbwaufcz[address] [place], [place] [address]Dr. Elba Anthony Platelet mean volume (Bld) [Entitic vol] 11.0 fL Normal 9.5-13.5 The [facility] Comment on above: Performed By: #### C BC ####[facility] Zpzytklmte[address] [place], [place] [address]Dr. Elba Anthony PLT 117 103/ul Critically low 150-450 The [facility] Comment on above: Performed By: #### C BC ####[facility] Tcxoytsfwc9[address] [place], [place] [address]Dr. Elba Anthony RBC 3.44 106/ul Critically low 4.70-6.10 The [facility] Comment on above: Performed By: #### C BC ####[facility] Ujdxfitsmf[address] [place], [place] [address]Dr. Elba Anthony WBC 9.2 103/ul Normal 4.0-11.0 The [facility] Comment on above: Performed By: #### C BC ####[facility] Upuxgcaydh[address] [place], [place] [address]Dr. Elba Anthony CRPon 12-14-2021 CRP [Mass/Vol] mg/L Critically high <=1.[address] [facility] Comment on above: Performed By: #### C RP, CMP, BNP ####[facility] Hbgwmovvio[address] [place] [address]Dr. Elba Anthony PROF 14(COMP METB)on 022 Albumin [Mass/Vol] 2.5 g/dL Critically low 3.4-5.0 [facility] Comment on above: Performed By: #### C RP, CMP, BNP ####[facility] Itlsealdvd[address] [place] [address]Dr. Elba Anthony Albumin/Globulin [Mass ratio] 0.6 {ratio} Normal [facility] Comment on above: Performed By: #### C RP, CMP, BNP ####[facility] Rbqwefhyur[address] [place] [address]Dr. Elba Anthony ALP [Catalytic activity/Vol] 76 U/L Normal 46-[address] [facility] Comment on above: Performed By: #### C RP, CMP, BNP ####[facility] Prgobmocle[address] [place] [address]Dr. Elba Anthony ALT [Catalytic activity/Vol] 17 U/L Normal 16-[address] [facility] Comment on above: Performed By: #### C RP, CMP, BNP ####[facility] Zxuzgsquqi[address] [place] [address]Dr. Elba Anthony Anion gap [Moles/Vol] 13.3 mmol/L Normal [facility] Comment on above: Performed By: #### C RP, CMP, BNP ####[facility] Zuqadyspui[address] [place] [address]Dr. Elba Anthony AST [Catalytic activity/Vol] 22 U/L Normal 15-[address] [facility] Comment on above: Performed By: #### C RP, CMP, BNP ####[facility] Meajwafosc[address] [place] [address]Dr. Elba Anthony Bilirubin [Mass/Vol] 1.0 mg/dL Normal 0.2-1.[address] [facility] Comment on above: Performed By: #### C RP, CMP, BNP ####[facility] Kouklodvxb[address] [place] [address]Dr. Elab Anthony Calcium [Mass/Vol] 8.1 mg/dL Critically low 8.5-10.1 Th e [facility] Comment on above: Performed By: #### C RP, CMP, BNP ####[facility] Tykmcrgpgm[address] [place] [address]Dr. Elba Anthony Chloride [Moles/Vol] 97 mmol/L Critically low 98-[address] [facility] Comment on above: Performed By: #### C RP, CMP, BNP ####[facility] Blttkkmwwg[address] [place], [place] [address]Dr. Elba Anthony CO2 [Moles/Vol] 25.0 mmol/L Normal 22.0-30.[address] [facility] Comment on above: Performed By: #### C RP, CMP, BNP ####[facility] Jgyfmppdaf[address] [place], [place] [address]Dr. Elba Anthony Creatinine [Mass/Vol] 2.85 mg/dL Critically high 0.66-1.[address] [facility] Comment on above: Performed By: #### C RP, CMP, BNP ####[facility] Vqkkdscuwu[address] [place], [place] [address]Dr. Elba Anthony EGFR-AF SAUDI ARABIAN 27 mL/min/1.73m2 Critically low >=[address] [facility] Comment on above: Performed By: #### C RP, CMP, BNP ####[facility] Ljwrqfavig[address] [place], [place] [address]Dr. Elba Anthony EGFR-NON AF SAUDI ARABIAN 22 mL/min/1.73m2 Critically low >=60 [facility] Comment on above: Performed By: #### C RP, CMP, BNP ####[facility] Iimprjwtpt[address] [place], [place] [address]Dr. Elba Anthony Globulin (S) [Mass/Vol] 3.9 g/dL Normal [facility] Comment on above: Performed By: #### C RP, CMP, BNP ####[facility] Kiwrwrlhgc[address] [place], [place] [address]Dr. Elba Anthony Glucose [Mass/Vol] 123 mg/dL Critically high 74-106 T [facility] Comment on above: Performed By: #### C RP, CMP, BNP ####[facility] Yzlwvmjgym[address] [place] [address]Dr. Elba Anthony Potassium [Moles/Vol] 4.3 mmol/L Normal 3.4-5.[address] [facility] Comment on above: Performed By: #### C RP, CMP, BNP ####[facility] Nffshbimbp[address] [place] [address]Dr. Elba Anthony Protein [Mass/Vol] 6.4 g/dL Normal 6.1-8.[address] [facility] Comment on above: Performed By: #### C RP, CMP, BNP ####[facility] Dvpjjtpiik86[address] [place], [place] [address]Dr. Elba Anthony Sodium [Moles/Vol] 131 mmol/L Critically low 137-145 Th [facility] Comment on above: Performed By: #### C RP, CMP, BNP ####[facility] Eyapjrggyh[address] [place], [place] [address]Dr. Elba Anthony Urea nitrogen [Mass/Vol] 57.0 mg/dL Critically high 7.0-18.[address] [facility] Comment on above: Performed By: #### C RP, CMP, BNP ####[facility] Yzxwgnqfcy[address] [place], [place] [address]Dr. Elba Anthony Urea nitrogen/Creatinine [Mass ratio] 20.0 mg/mg Normal The [facility] Comment on above: Performed By: #### C RP, CMP, BNP ####[facility] Tjqgytamzn[address] [place], [place] [address]Dr. Elba Anthony XR CHEST 1 Von 12-14-2021 XR CHEST 1 V Normal [facility] XR CHEST 1 V Normal [facility] BNPon 12-13-2021 Natriuretic peptide B (Bld) [Mass/Vol] 34872.0 pg/mL Critically high <=900.0 [facility] Comment on above: Performed By: #### B BINGO FLOATER ####[facility] Xtrvfccdfm[address] [place], [place] [address]Dr. Elba Anthony CBC AUTO DIFFon 12-13-2021 BASO # 0.0 103/ul Normal 0.0-0.1 [facility] Comment on above: Performed By: #### C BC ####[facility] Heocnyrwau[address] [place] [address]Dr. Elba Anthony Basophils/100 WBC (Bld) 0.1 % Critically low 0.2-2.0 [facility] Comment on above: Performed By: #### C BC ####[facility] Qsxbbysutb75[address] [place], [place] [address]Dr. Elba Anthony EO # 0.0 103/ul Normal 0.0-0.7 [facility] Comment on above: Performed By: #### C BC ####[facility] Bqdycvfjrm[address] [place], [place] [address]Dr. Elba Anthony Eosinophils/100 WBC (Bld) 0.2 % Critically low 0.9-7.0 [facility] Comment on above: Performed By: #### C BC ####[facility] Lfjxmanzkv[address] [place], [place] [address]Dr. Elba Anthony Erythrocyte distribution width (RBC) [Ratio] 19.0 % Critically high 11.0-15.0 [facility] Comment on above: Performed By: #### C BC ####[facility] Mxzmhftorj380[address] [place], [place] [address]Dr. Elba Anthony Hematocrit (Bld) [Volume fraction] 31.8 % Critically low 42.0-54.0 [facility] Comment on above: Performed By: #### C BC ####[facility] Fxymaoyrfh350[address] [place], [place] [address]Dr. Elba Anthony Hemoglobin (Bld) [Mass/Vol] 9.5 g/dL Critically low 14.0-18.0 [facility] Comment on above: Performed By: #### C BC ####[facility] Vvpqadagcm[address] [place], [place] [address]Dr. Elba Anthony IG # 0.05 10e3/ul Critically high 0.00-0.03 [facility] Comment on above: Performed By: #### C BC ####[facility] Ijxadkdukk36[address] [place] [id number]. Nereydasiobhan Anthony IG % 0.4 % Normal 0.0-0.5 [facility] Comment on above: Performed By: #### C BC ####[facility] Nvpynxwizp5[address] [place] [address]Dr. Elba Anthony LYMPH # 0.3 103/ul Critically low 1.2-3.8 [facility] Comment on above: Performed By: #### C BC ####[facility] Wzmzognihh[address] [place], [place] [address]Dr. Nereydasiobhan Anthony Lymphocytes/100 WBC (Bld) 2.3 % Critically low 20.5-60.0 [facility] Comment on above: Result Comment: dif. not rqd. same as 12/12/21 Performed By: #### C BC ####[facility] Dzqpgenvvb[address] [place], [place] [address]Dr. Elba Anthony MANUAL DIFF REQ NO Normal [facility] Comment on above: Performed By: #### C BC ####[facility] Dcgeaxbczh[address] [place], [place] [address]Dr. Elba Raj MCH (RBC) [Entitic mass] 25.3 pg Critically low 25.9-34.[address] [facility] Comment on above: Performed By: #### C BC ####[facility] Ckabmnkgsr[address] [place], [place] [address]Dr. Elba Raj MCHC (RBC) [Mass/Vol] 29.9 g/dL Normal 29.9-35.2 [facility] Comment on above: Performed By: #### C BC ####[facility] Dkweqrvfzg[address] [place], [place] [address]Dr. Nereydasiobhan Anthony MCV (RBC) [Entitic vol] 84.8 fL Normal 80.0-94.0 [facility] Comment on above: Performed By: #### C BC ####[facility] Mqeufewkbo[address] [place], [place] [address]Dr. Elba Anthony MONO # 0.8 103/ul Normal 0.3-0.8 [facility] Comment on above: Performed By: #### C BC ####[facility] Aaurzfqyhi[address] [place] [id number]. Elba Anthony Monocytes/100 WBC (Bld) 6.7 % Normal 1.7-12.0 [facility] Comment on above: Performed By: #### C BC ####[facility] Joaudxpqtt6[address] [place] [id number]. Elba Anthony NEUT # 11.0 103/ul Critically high 1.4-6.5 [facility] Comment on above: Performed By: #### C BC ####[facility] Wsxdubterz3526 [place] [id number]. Elba Anthony Neutrophils/100 WBC (Bld) 90.3 % Critically high 43.0-75.0 [facility] Comment on above: Performed By: #### C BC ####[facility] Ckdrgmyljm[address] [place] [address]Dr. Elba Anthony Platelet mean volume (Bld) [Entitic vol] 10.8 fL Normal 9.5-13.[address] [facility] Comment on above: Performed By: #### C BC ####[facility] Psfrhvpnhs[address] [place], [place] [address]Dr. Elba Anthony PLT 130 103/ul Critically low 150-450 [facility] Comment on above: Performed By: #### C BC ####[facility] Ubujeyntew6601 [place] [id number]. Elba Anthony RBC 3.75 106/ul Critically low 4.70-6.10 [facility] Comment on above: Performed By: #### C BC ####[facility] Vgayfbfjeo2126 [place] [id number]. Elba Anthony WBC 12.2 103/ul Critically high 4.0-11.0 [facility] Comment on above: Performed By: #### C BC ####[facility] Psdmkafyui57[address] [place] [id number]. Elba Anthony CRPon 12-13-2021 CRP [Mass/Vol] mg/L Critically high <=1.0 [facility] Comment on above: Performed By: #### C MP, CRP ####[facility] Ezzpowieis[address] [place] [address]Dr. Elba Anthony ECHO LIMITED STUDYon 022 ECHO LIMITED STUDY Normal [facility] PROF 14(COMP METB)on 022 Albumin [Mass/Vol] 2.9 g/dL Critically low 3.4-5.0 [facility] Comment on above: Performed By: #### C MP, CRP ####[facility] Forqatbago[address] [place] [address]Dr. Elba Anthony Albumin/Globulin [Mass ratio] 0.7 {ratio} Normal [facility] Comment on above: Performed By: #### C MP, CRP ####[facility] Jpgicgavjn[address] [place] [address]Dr. Elba Anthony ALP [Catalytic activity/Vol] 88 U/L Normal 46-[address] [facility] Comment on above: Performed By: #### C MP, CRP ####[facility] Ggcgpdvirv[address] [place] [address]Dr. Elba Anthony ALT [Catalytic activity/Vol] 15 U/L Critically low 16-[address] [facility] Comment on above: Performed By: #### C MP, CRP ####[facility] Cbpxkojwlp[address] [place] [address]Dr. Elba Anthony Anion gap [Moles/Vol] 15.1 mmol/L Normal [facility] Comment on above: Performed By: #### C MP, CRP ####[facility] Knzabfyfgg[address] [place] [address]Dr. Elba Anthony AST [Catalytic activity/Vol] 14 U/L Critically low 15-[address] [facility] Comment on above: Performed By: #### C MP, CRP ####[facility] Jczoactfzg6[address] [place] [address]Dr. Elba Anthony Bilirubin [Mass/Vol] 1.5 mg/dL Critically high 0.2-1.[address] [facility] Comment on above: Performed By: #### C MP, CRP ####[facility] Pxilqfuxbp[address] [place], [place] [address]Dr. Elba Anthony Calcium [Mass/Vol] 8.6 mg/dL Normal 8.5-10.[address] [facility] Comment on above: Performed By: #### C MP, CRP ####[facility] Bblgplzczv[address] [place], [place] [address]Dr. Elba Anthony Chloride [Moles/Vol] 99 mmol/L Normal 98-107 [facility] Comment on above: Performed By: #### C MP, CRP ####[facility] Lwqlalmmyl[address] [place], [place] [address]Dr. Elba Anthony CO2 [Moles/Vol] 24.3 mmol/L Normal 22.0-30.0 [facility] Comment on above: Performed By: #### C MP, CRP ####[facility] Htwjidxclb[address] [place], [place] [address]Dr. Elba Anthony Creatinine [Mass/Vol] 2.52 mg/dL Critically high 0.66-1.[address] [facility] Comment on above: Performed By: #### C MP, CRP ####[facility] Gvzkuxgabo[address] [place], [place] [address]Dr. Elba Anthony EGFR-AF SAUDI ARABIAN 31 mL/min/1.73m2 Critically low >=[address] [facility] Comment on above: Performed By: #### C MP, CRP ####[facility] Baeakctedk[address] [place], [place] [address]Dr. Elba Anthony EGFR-NON AF SAUDI ARABIAN 25 mL/min/1.73m2 Critically low >=60 [facility] Comment on above: Performed By: #### C MP, CRP ####[facility] Mifbkdnuan80[address] [place], [place] [address]Dr. Elba Anthony Globulin (S) [Mass/Vol] 3.9 g/dL Normal [facility] Comment on above: Performed By: #### C MP, CRP ####[facility] Tvpghuihuu[address] [place], [place] [address]Dr. Elba Anthony Glucose [Mass/Vol] 133 mg/dL Critically high 74-106 T [facility] Comment on above: Performed By: #### C MP, CRP ####[facility] Ejgnkybopg9751 [place] [id number]. Elba Anthony Potassium [Moles/Vol] 4.4 mmol/L Normal 3.4-5.[address] [facility] Comment on above: Performed By: #### C MP, CRP ####[facility] Nmltdnyoyi80[address] [place] [address]Dr. Elba Anthony Protein [Mass/Vol] 6.8 g/dL Normal 6.1-8.[address] [facility] Comment on above: Performed By: #### C MP, CRP ####[facility] Gywyqvwulm[address] [place] [address]Dr. Elba Anthony Sodium [Moles/Vol] 134 mmol/L Critically low 137-145 [facility] Comment on above: Performed By: #### C MP, CRP ####[facility] Fbigoovytn65[address] [place], [place] [address]Dr. Elba Anthony Urea nitrogen [Mass/Vol] 47.0 mg/dL Critically high 7.0-18.[address] [facility] Comment on above: Performed By: #### C MP, CRP ####[facility] Tsahwemoni[address] [place], [place] [address]Dr. Elba Anthony Urea nitrogen/Creatinine [Mass ratio] 18.7 mg/mg Normal [facility] Comment on above: Performed By: #### C MP, CRP ####[facility] Ulyruvtonq[address] [place], [place] [address]Dr. Elba Anthony T3, TOTAL (TRIIODOTHYRONINE) on 12-13-2021 T3, TOTAL 66 ng/dL Critically low 71-[address] [facility] Comment on above: Performed By: #### T 3TOTAL ####[facility] Hvlezlupeh[address] [place], [place] [address]Dr. Elba Anthony US KIDNEYS BLADDERon 022 US KIDNEYS BLADDER Normal [facility] BLOOD CULTURE ID PANELon A. baumannii Not detected Normal [facility] Comment on above: Performed By: #### B PABLO ####[facility] Mxqdxkrdck[address] [place], [place] [address]Dr. Elba Anthony BCID CONTROLS PASSED [facility] Comment on above: Performed By: #### B PABLO ####[facility] Ccmebxkbwd9689 [place] [id number]. Elba Anthony BCIDBTHD BLOOD CULTURE BOTTLE INFORMATION [facility] Comment on above: Performed By: #### B PABLO ####[facility] Ftgxezufzq5741 [place] [phone]. Yisiobhan Anthony BCIDHD1 ANTIMICROBIAL RESIST ANCE GENES [facility] Comment on above: Performed By: #### B PABLO ####[facility] Bdliyxfcic[address] [place] [address]Dr. Yisiobhan Anthony BCIDHD2 SEE BELOW [facility] Comment on above: Result Comment: KPC- carbapenem resistance gene, mecA- methecillin resistance gene, van A/B- vancomycin resistance gene Note: Antimicrobial resitance can occur via multiple mechanisms. A Not Detected result for the FilmArray antomicrobial resistance gene assays does not indicate antimicrobial susceptibility. Subculturing is required for specis identificationand susceptibility testing of isolates. Performed By: #### B PABLO ####[facility] Kqpiothnsd[address] [place], [place] [address]Dr. Elba Anthony BCIDHD3 Positive [facility] Comment on above: Performed By: #### B PABLO ####[facility] Bhqpudwlgr[address] [place], [place] [address]Dr. Elba Anthony BCIDHD4 Negative [facility] Comment on above: Performed By: #### B PABLO ####[facility] Qoqoyibavy2247 [place] [id number]. Elba Anthony BCIDHD5 YEAST [facility] Comment on above: Performed By: #### B PABLO ####[facility] Irxeapgusn[address] [place], [place] [address]Dr. Elba Anthony BCIDHD6 SEE BELOW [facility] Comment on above: Result Comment: Note : All genus and species BCID FilmArray results will be verified post subculturing via Maldi-Tof MS testing methodology. Performed By: #### B PABLO ####[facility] Pxfvnpmoou24[address] [place] [address]Dr. Yilan Anthony Bottle Set: Set 1 Normal [facility] Comment on above: Performed By: #### B PABLO ####[facility] Pmnwwnqoba[address] [place] [address]Dr. Nereydalan Anthony Bottle: Aerobic Normal [facility] Comment on above: Performed By: #### B PABLO ####[facility] Cqqwezyfub24[address] [place] [address]Dr. Yilan Anthony Lorelei albicans Not detected Normal [facility] Comment on above: Performed By: #### B PABLO ####[facility] Noeuopusxr[address] [place], [place] [address]Dr. Yilan Anthony Lorelei glabrata Not detected Normal [facility] Comment on above: Performed By: #### B PABLO ####[facility] Tlqnngvnnh[address] [place], [place] [address]Dr. Elba [facility] Lorelei Krusei Not detected Normal [facility] Comment on above: Performed By: #### B PABLO ####[facility] Pvswtwgngc[address] [place], [place] [address]Dr. Yilan Anthony Lorelei Parapsilosis Not detected Normal [facility] Comment on above: Performed By: #### B PABLO ####[facility] Lzdpuzuues[address] [place], [place] [address]Dr. Yilan [facility] Lorelei Tropicalis Not detected Normal [facility] Comment on above: Performed By: #### B PABLO ####[facility] Xuwpkqzhyx6[address] [place], [place] [address]Dr. Yilan Anthony E. Cloacae complex Not detected Normal [facility] Comment on above: Performed By: #### B PABLO ####[facility] Kwdlkudbsc[address] [place], [place] [address]Dr. Yilan Anthony Enterobacteriaceae Not detected Normal [facility] Comment on above: Performed By: #### B PABLO ####[facility] Lusqxuxnct[address] [place], [place] [address]Dr. Yilan Anthony Enterococcus Not detected Normal [facility] Comment on above: Performed By: #### B PABLO ####[facility] [address]jimjxertj[address] [place], [place] [id number]. Elba Anthony Escheria coli Not detected Normal [facility] Comment on above: Performed By: #### B PABLO ####[facility] Udszkgaqym7[address] [place] [address]Dr. Elba Anthony K. oxytoca Not detected Normal [facility] Comment on above: Performed By: #### B PABLO ####[facility] Ebtusppabo[address] [place] [address]Dr. Elba Anthony K. pneumoniae Not detected Normal [facility] Comment on above: Performed By: #### B PABLO ####[facility] Rulizimnwa[address] [place], [place] [address]Dr. Elba Anthony KPC Resistant Gene Not detected Normal [facility] Comment on above: Performed By: #### B PABLO ####[facility] Grkkrxvgik[address] [place], [place] [address]Dr. Elba Anthony List. monocytogenes Not detected Normal [facility] Comment on above: Performed By: #### B PABLO ####[facility] Stbwrpnemy7[address] [place], [place] [address]Dr. Elba Anthony mecA Resistant Gene Not Applicable Normal [facility] Comment on above: Performed By: #### B PABLO ####[facility] Efaitjbklq[address] [place], [place] [address]Dr. Elba Anthony Proteus Not detected Normal [facility] Comment on above: Performed By: #### B PABLO ####[facility] Lrwvvaxudl98[address] [place], [place] [address]Dr. Elba Anthony Pseud. aeruginosa Detected Critically abnormal [facility] Comment on above: Performed By: #### B PABLO ####[facility] Qdspmurrbl75[address] [place], [place] [address]Dr. Elba Anthony Seratia marcescens Not detected Normal [facility] Comment on above: Performed By: #### B PABLO ####[facility] Eiifabnsxc[address] [place], [place] [address]Dr. Elba Anthony Site: Left hand Normal [facility] Comment on above: Performed By: #### B PABLO ####[facility] Wfpwmrugui234[address] [place], [place] [address]Dr. Elba Anthony Staph. aureus Not detected Normal [facility] Comment on above: Performed By: #### B PABLO ####[facility] Clpxgfzgzx85[address] [place], [place] [address]Dr. Elba Anthony Staphylococcus Not detected Normal [facility] Comment on above: Performed By: #### B PABLO ####[facility] Hcfdqizpau[address] [place], [place] [address]Dr. Elba Anthony Strep. agalactiae Not detected Normal [facility] Comment on above: Performed By: #### B PABLO ####[facility] Vkmcntkhrs[address] [place], [place] [address]Dr. Elba Anthony Strep. pneumoniae Not detected Normal [facility] Comment on above: Performed By: #### B PABLO ####[facility] Vwslisvvyc[address] [place], [place] [address]Dr. Elba Anthony Strep. pyogenes Not detected Normal [facility] Comment on above: Performed By: #### B PABLO ####[facility] Nivugpgifk17[address] [place], [place] [address]Dr. Elba Anthony Streptococcus Not detected Normal [facility] Comment on above: Performed By: #### B PABLO ####[facility] Ceimkfwpjn[address] [place], [place] [address]Dr. Elba Anthony Soledad/B Resist. Gene Not Applicable Normal T [facility] Comment on above: Performed By: #### B APBLO ####[facility] Iqzkllquch[address] [place], [place] [address]Dr. Elba Anthony BNPon 12-12-2021 Natriuretic peptide B (Bld) [Mass/Vol] 01166.0 pg/mL Critically high <=900.[address] [facility] Comment on above: Result Comment: test repeated critical value verified Performed By: #### B MP, BNP, HSTROPN ####[facility] Cwposfhmsd[address] [place], [place] [address]Dr. Elba Anthony CARDIAC FADY 3-6on 2 CK [Catalytic activity/Vol] 29 U/L Critically low 55-[address] [facility] Comment on above: Performed By: #### C MREP ####[facility] Imoljjsgyc05[address] [place] [id number]. Elba Anthony CK.MB [Mass/Vol] 1.26 ng/mL Normal <=2.[address] [facility] Comment on above: Performed By: #### C MREP ####[facility] Nwvxghuuhs6212 [place] [phone]. Elba Anthony HSTROP 27.4 pg/mL Normal 4.0-42.[address] [facility] Comment on above: Result Comment: CUT- OFF POINTS HAVE BEEN ESTABLISHED BASED ON THE FOURTH UNIVERSAL DEFINITIONS OF MYOCARDIALINFARCTION. THE UPPER REFERENCE LIMIT (URL) OF TROPONIN, DEFINED THE 99TH PERCENTILE OFcTnI DISTRIBUTION IN A REFERENCE POPULATION, HAS BEEN CONFIRMED THE DECISION THRESHOLDFOR SD DIAGNOSIS. Performed By: #### C MREP ####[facility] Hjbtorqfah[address] [place] [address]Dr. Elba Anthony CK [Catalytic activity/Vol] 23 U/L Critically low 55-[address] [facility] Comment on above: Performed By: #### C MREP ####[facility] Qbmyrpwoyf45[address] [place] [address]Dr. Elba Anthony CK.MB [Mass/Vol] 1.41 ng/mL Normal <=2.[address] [facility] Comment on above: Performed By: #### C MREP ####[facility] Jtcdtwcctj[address] [place] [address]Dr. Elba Anthony HSTROP 27.2 pg/mL Normal 4.0-42.[address] [facility] Comment on above: Result Comment: CUT- OFF POINTS HAVE BEEN ESTABLISHED BASED ON THE FOURTH UNIVERSAL DEFINITIONS OF MYOCARDIALINFARCTION. THE UPPER REFERENCE LIMIT (URL) OF TROPONIN, DEFINED THE 99TH PERCENTILE OFcTnI DISTRIBUTION IN A REFERENCE POPULATION, HAS BEEN CONFIRMED THE DECISION THRESHOLDFOR SD DIAGNOSIS. Performed By: #### C MREP ####[facility] Tjfqfgdlbl35[address] [place] [address]Dr. Elba Anthony CBC W MANUAL DIFFon 12-13-19 22 ATYPICAL LYMPH # Normal [facility] Comment on above: Performed By: #### C BCMAN ####[facility] Ffqjoxgbzb33[address] [place] [address]Dr. Elba Anthony ATYPICAL LYMPH % Normal [facility] Comment on above: Performed By: #### C ADALGISA ####[facility] Bqqhdswrls[address] [place] [address]Dr. Yilan Anthony BAND # Normal 0.0-0.3 [facility] Comment on above: Performed By: #### C ADALGISA ####[facility] Jiaryespkf[address] [place] [address]Dr. Yilan Anthony BAND % Normal 0-5 [facility] Comment on above: Performed By: #### C ADALGISA ####[facility] Okyokiqpjb[address] [place], [place] [address]Dr. Yisiobhan Anthony BASOM # 0.00 103/ul Normal 0.00-0.10 [facility] Comment on above: Performed By: #### C ADALGISA ####[facility] Ishkpqrjul[address] [place], [place] [address]Dr. Yisiobhan Anthony BASOM % 0.0 % Critically low 0.2-2.0 [facility] Comment on above: Performed By: #### C ADALGISA ####[facility] Tcttvgjtlu[address] [place], [place] [address]Dr. Yilan Anthony BLAST # Normal [facility] Comment on above: Performed By: #### C ADALGISA ####[facility] Lfgpaemfzx[address] [place], [place] [address]Dr. Yisiobhan Anthony BLAST % Normal [facility] Comment on above: Performed By: #### C ADALGISA ####[facility] Jkhshleslm[address] [place], [place] [address]Dr. Elba Anthony CORRECTED WBC Normal 4.0-11.0 [facility] Comment on above: Performed By: #### C ADALGISA ####[facility] Qnbgzalcjg[address] [place], [place] [address]Dr. Yilan Anthony EOS # 0.00 103/ul Normal 0.00-0.70 [facility] Comment on above: Performed By: #### C ADALGISA ####[facility] Lszihsrnjp0346 [place], [place] [address]Dc. Elba Anthony EOS% 0.0 % Critically low 0.9-7.0 [facility] Comment on above: Performed By: #### C ADALGISA ####[facility] Xdpxkgvrqc5538 [place], [place] [address]Nc. Elba Anthony HCT 34.1 % Critically low 42.0-54.0 [facility] Comment on above: Performed By: #### C ADALGISA ####[facility] Mkqsrpidpp3446 [place], [place] [address]As. Elba Anthony HGB 10.1 g/dl Critically low 14.0-18.0 [facility] Comment on above: Performed By: #### C ADALGISA ####[facility] Nzldrkxlaf0621 [place] [id number]. Elba Anthony LYMPHM # 0.32 103/ul Critically low 1.20-3.80 [facility] Comment on above: Performed By: #### C ADALGISA ####[facility] Uglrxdogin5081 [place] [id number]. Elba Anthony LYMPHM% 3.0 % Critically low 20.5-60.0 [facility] Comment on above: Performed By: #### Abdoul DIANA ####[facility] Pxrwelemas5521 [place], [place] [address]Mx. Elba Anthony MCH 25.5 pg Critically low 25.9-34.0 [facility] Comment on above: Performed By: #### C ADALGISA ####[facility] Iuoretrbfk3952 [place], [place] [address]Of. Elba Anthony MCHC 29.6 g/dl Critically low 29.9-35.2 [facility] Comment on above: Performed By: #### C ADALGISA ####[facility] Okyvskekxf9588 [place] [phone]. Elba Anthony MCV 86.1 fL Normal 80.0-94.0 [facility] Comment on above: Performed By: #### C ADALGISA ####[facility] Ntiecbtsdp3096 [place] [phone]. Elba Anthony METAMYELOCYTE # Normal [facility] Comment on above: Performed By: #### C ADALGISA ####[facility] Ycqbbolbni3530 [place] [phone]. Elba Anthony METAMYELOCYTE % Normal [facility] Comment on above: Performed By: #### C ADALGISA ####[facility] Bnkojyvrot2565 [place] [phone]. Elba Anthony MONOM# 0.11 103/ul Critically low 0.30-0.[address] [facility] Comment on above: Performed By: #### C ADALGISA ####[facility] [address] [place] [address]Dr. Elba Raj MONOM% 1.0 % Critically low 1.7-12.[address] [facility] Comment on above: Performed By: #### C ADALGISA ####[facility] I[address] [place], [place] [address]Dr. Elba Anthony MPV 10.4 fL Normal 9.5-13.[address] [facility] Comment on above: Performed By: #### C ADALGISA ####[facility] Aq[address] [place], [place] [address]Dr. Elba Raj MYELOCYTE # Normal [facility] Comment on above: Performed By: #### C ADALGISA ####[facility] [address] [place], [place] [id number]. Elba Anthony MYELOCYTE % Normal [facility] Comment on above: Performed By: #### C ADALGISA ####[facility] Bcmldcpknh[address] [place] [address]Dr. Elba Anthony NRBC Normal [facility] Comment on above: Performed By: #### C ADALGISA ####[facility] Mgywrnoton[address] [place], [place] [address]Dr. Elba Anthony OVALOCYTES SLIGHT Normal [facility] Comment on above: Performed By: #### C ADALGISA ####[facility] Erxnawnyet[address] [place], [place] [address]Dr. Elba Anthony PLT 154 103/ul Normal 150-450 [facility] Comment on above: Performed By: #### C ADALGISA ####[facility] [address]tknznwnkp[address] [place] [id number]. Elba Anthony POIKILOCYTOSIS 1+ Normal [facility] Comment on above: Performed By: #### C ADALGISA ####[facility] Wczwrspjak7[address] [place] [id number]. Elba Anthony RBC 3.96 106/ul Critically low 4.70-6.[address] [facility] Comment on above: Performed By: #### C ADALGISA ####[facility] Bxihuetkxw[address] [place] [id number]. Elba Anthony RDW 19.0 % Critically high 11.0-15.[address] [facility] Comment on above: Performed By: #### C ADALGISA ####[facility] Tfzadnfrhv[address] [place] [id number]. Elba Anthony SEG # 10.37 103/ul Critically high 1.40-6.[address] [facility] Comment on above: Performed By: #### C ADALGISA ####[facility] Bbsvfqhvly232[address] [place] [id number]. Elba Anthony SEG % 96.0 % Critically high 43.0-75.0 [facility] Comment on above: Performed By: #### C ADALGISA ####[facility] Sywf[address]fqxr[address] [place] [address]Dr. Elba Anthony TEAR DROP CELLS SLIGHT Normal [facility] Comment on above: Performed By: #### C ADALGISA ####[facility] Sjujmntahs[address] [place] [id number]. Elba Anthony WBC 10.8 103/ul Normal 4.0-11.0 [facility] Comment on above: Performed By: #### C ADALGISA ####[facility] Svyceespcn[address] [place] [address]Dr. Elba Anthony CRPon 12-12-2021 CRP 3.1 mg/dL Critically high <=1.[address] [facility] Comment on above: Performed By: #### C RP, TSH, T4 ####[facility] Tq[address]ouwhlyn[address] [place] [id number]. Elba Anthony CULTURE BLOODon 12-12-2021 Microscopic examination of blood, culture Culture Observations: Positive blood culture. Aerobic & anaerobic bottles. BCID=Pseudomonas aeruginosa Culture Observations: Sending to [facility] for workup. Normal The [facility] Comment on above: Performed By: #### B LDCX2 ####[facility] Edz[address]jffaw[address] [place] [address]Dr. Elba Anthony Microscopic examination of blood, culture Culture Observations: Positive blood culture. Aerobic bottle. BCID= Pseudomonas aeruginosa. Culture Observations: Sending to [facility] for workup. Culture Observations: NO GROWTH AT 5 DAYS. ANAEROBIC BOTTLE Normal The [facility] Comment on above: Performed By: #### B LDCX1 ####[facility] O[address]he[address]ouo[address] [place], [place] [address]Dr. Elba Anthony Covid-19 PCR (CVDTBH)on SARS-CoV-2 (COVID-19) RNA ELIZABETH+probe Ql (Unsp spec) Not detected Normal NOT DETECTED The [facility] Comment on above: Result Comment: When diagnostic testing is negative, the possibility of a false negative should be considered inthe context of a patient's recent exposures and the presence of clinical signs and symptomsconsistent with SARS-CoV-2.This test is not yet approved or cleared by the [place] Food and Drug Administration (FDA).This test was developed by [employer], [place], [place]. The performance characteristics ofthis test were validated by The [facility]. The results are not intended to beused as the sole means for clinical diagnosis or patient management decisions. The [facility] is authorized under Clinical Laboratory Improvement Amendments (CLIA) to perform high-complexity testing.This test is not yet approved or cleared by the [place] FDA. When there are no FDA-approved or cleared tests available, and other criteria are met, FDA can make tests available under an emergency access mechanism called an Emergency Use Authorization (EUA). The EUA for this test is supported by the [place] of Health and Human Service's declaration that [...] be used). Performed By: #### C VDTBH ####[facility] Qthekqmkkr[address] [place] [address]Dr. Elba Anthony LACTATE/LACTIC ACIDon 2021 Lactate [Moles/Vol] 2.0 mmol/L Normal 0.7-2.[address] [facility] Comment on above: Performed By: #### L ACT ####[facility] Vzezgospms[address] [place], [place] [address]Dr. Elba Anthony Lactate [Moles/Vol] 1.7 mmol/L Normal 0.7-2.[address] [facility] Comment on above: Performed By: #### L ACT ####[facility] Wjcmcuxpcc[address] [place], [place] [address]Dr. Elba Anthony PROF CHEM 8 (BAS METB)on Anion gap [Moles/Vol] 14.7 mmol/L Normal [facility] Comment on above: Performed By: #### B MP, BNP, HSTROPN ####[facility] Kovrbnsxhn[address] [place], [place] [address]Dr. Elba Anthony Calcium [Mass/Vol] 8.6 mg/dL Normal 8.5-10.[address] [facility] Comment on above: Performed By: #### B MP, BNP, HSTROPN ####[facility] H[address]owthzh[address] [place], [place] [address]Dr. Elba Anthony Chloride [Moles/Vol] 102 mmol/L Normal 98-107 [facility] Comment on above: Performed By: #### B MP, BNP, HSTROPN ####[facility] [address]aw[address]onyttc[address] [place], [place] [address]Dr. Elba Anthony CO2 [Moles/Vol] 25.4 mmol/L Normal 22.0-30.[address] [facility] Comment on above: Performed By: #### B MP, BNP, HSTROPN ####[facility] K[address]csmz[address] [place], [place] [address]Dr. Elba Anthony Creatinine [Mass/Vol] 2.29 mg/dL Critically high 0.66-1.[address] [facility] Comment on above: Performed By: #### B MP, BNP, HSTROPN ####[facility] Bkaofgvycv[address] [place] [address]Dr. Elba Anthony EGFR-AF SAUDI ARABIAN 35 mL/min/1.73m2 Critically low >=60 [facility] Comment on above: Performed By: #### B MP, BNP, HSTROPN ####[facility] Wfcxfzuasy[address] [place] [address]Dr. Elba Anthony EGFR-NON AF SAUDI ARABIAN 28 mL/min/1.73m2 Critically low >=[address] [facility] Comment on above: Performed By: #### B MP, BNP, HSTROPN ####[facility] Obnlxtwsod[address] [place], [place] [address]Dr. Elba Anthony Glucose [Mass/Vol] 130 mg/dL Critically high 74-106 T [facility] Comment on above: Performed By: #### B MP, BNP, HSTROPN ####[facility] Kz[address]wr[address] [place], [place] [address]Dr. Elba Anthony Potassium [Moles/Vol] 4.1 mmol/L Normal 3.4-5.[address] [facility] Comment on above: Performed By: #### B MP, BNP, HSTROPN ####[facility] Rbc[address] [place], [place] [address]Dr. Elba Anthony Sodium [Moles/Vol] 138 mmol/L Normal 137-145 [facility] Comment on above: Performed By: #### B MP, BNP, HSTROPN ####[facility] Fehbbfkhjn[address] [place], [place] [address]Dr. Elba Anthony Urea nitrogen [Mass/Vol] 43.0 mg/dL Critically high 7.0-18.[address] [facility] Comment on above: Performed By: #### B MP, BNP, HSTROPN ####[facility] [address]vcqkcwyk[address] [place], [place] [address]Dr. Elba Anthony Urea nitrogen/Creatinine [Mass ratio] 18.8 mg/mg Normal [facility] Comment on above: Performed By: #### B MP, BNP, HSTROPN ####[facility] [address]lqvox[address] [place] [id number]. Elba Anthony T4on 12-12-2021 T4 [Mass/Vol] 11.10 ug/dL Critically high 5.53-11.00 [facility] Comment on above: Performed By: #### C RP, TSH, T4 ####[facility] [address] [place] [address]Dr. Elba Anthony TROPONIN, HIGH SENSITIVITYon 12-12-2021 HSTROP 26.2 pg/mL Normal 4.0-42.2 [facility] Comment on above: Result Comment: CUT- OFF POINTS HAVE BEEN ESTABLISHED BASED ON THE FOURTH UNIVERSAL DEFINITIONS OF MYOCARDIALINFARCTION. THE UPPER REFERENCE LIMIT (URL) OF TROPONIN, DEFINED THE 99TH PERCENTILE OFcTnI DISTRIBUTION IN A REFERENCE POPULATION, HAS BEEN CONFIRMED THE DECISION THRESHOLDFOR SD DIAGNOSIS. Performed By: #### B MP, BNP, HSTROPN ####[facility] [address] [place] [id number]. Elba Anthony TSHon 12-12-2021 TSH 1.233 uIU/mL Normal 0.470-4.680 [facility] Comment on above: Performed By: #### C RP, TSH, T4 ####[facility] [address] [place] [address]Dr. Elba Anthony TSH RANGE SEE BELOW Normal [facility] Comment on above: Result Comment: <0.3 4 UIU/ml HYPERTHYROID 0.34-5.60 UIU/ml EUTHYROID >5.60 UIU/ml HYPOTHYROID Performed By: #### C RP, TSH, T4 ####[facility] [address] [place] [address]Dr. Elba Anthony US ARLIN DOP LEG RTon 12-13-19 22 US ARLIN DOP LEG RT Normal [facility] XR TIB_FIB RT 2Von 2 XR TIB_FIB RT 2V Normal [facility] APTTon 08-01-2021 aPTT Coag (Bld) [Time] 34.5 s Normal 25.0-35.0 Th e [facility] Comment on above: Result Comment: ALL [...] [facility] [address] [place] [address], [facility] BASIC METABOLIC PANELon 11-2 Calcium [Mass/Vol] 8.6 mg/dL Normal 8.6-10.3 The [facility] Comment on above: Order Comment: No: D o not add to previous draw Performed By: #### 3 2044 #### [facility] [address] [place] [address], [facility] Chloride [Moles/Vol] 108 mmol/L High 98-107 The [facility] Comment on above: Order Comment: No: D o not add to previous draw Performed By: #### 3 2044 #### [facility] [address] [place] [address], [facility] CO2 [Moles/Vol] 20 mmol/L Low 21-31 The [facility] Comment on above: Order Comment: No: D o not add to previous draw Performed By: #### 3 2044 #### [facility] [address] [place] [address], [facility] Creatinine [Mass/Vol] 2.66 mg/dL High 0.70-1.30 The [facility] Comment on above: Order Comment: No: D o not add to previous draw Performed By: #### 3 2044 #### [facility] [address] [place] [address], [facility] eGFR- 29 ml/min/1.73sq m Abnormal >60 The [facility] Comment on above: Order Comment: No: D o not add to previous draw Performed By: #### 3 2044 #### [facility] [address] [place] [address], [facility] eGFR- non- 24 ml/min/1.73sq m Abnormal >60 The [facility] Comment on above: Order Comment: No: D o not add to previous draw Performed By: #### 3 2044 #### [facility] [address] [place] [address], [place] Glucose [Mass/Vol] 125 mg/dL High 70-100 The [facility] Comment on above: Order Comment: No: D o not add to previous draw Performed By: #### 3 2044 #### [facility] [address] [place] [address], [place] Potassium [Moles/Vol] 4.4 mmol/L Normal 3.5-5.1 The [facility] Comment on above: Order Comment: No: D o not add to previous draw Performed By: #### 3 2044 #### [facility] [address] [place] [address], [place] Sodium [Moles/Vol] 138 mmol/L Normal 136-145 The [facility] Comment on above: Order Comment: No: D o not add to previous draw Performed By: #### 3 2044 #### [facility] [address] [place] [address], [place] Urea nitrogen [Mass/Vol] 54 mg/dL High 7-25 The [facility] Comment on above: Order Comment: No: D o not add to previous draw Performed By: #### 3 2044 #### [facility] [address] [place] [address], [place] Calcium [Mass/Vol] 8.5 mg/dL Low 8.6-10.3 The [facility] Comment on above: Order Comment: No: D o not add to previous draw Performed By: #### 5 0103 #### [facility] [address] [place] [address], [place] Chloride [Moles/Vol] 107 mmol/L Normal 98-107 The [facility] Comment on above: Order Comment: No: D o not add to previous draw Performed By: #### 5 0103 #### [facility] [address] [place] [address], [place] CO2 [Moles/Vol] 23 mmol/L Normal 21-31 The [facility] Comment on above: Order Comment: No: D o not add to previous draw Performed By: #### 5 0103 #### [facility] [address] [place] [address], [place] Creatinine [Mass/Vol] 2.86 mg/dL High 0.70-1.30 The [facility] Comment on above: Order Comment: No: D o not add to previous draw Performed By: #### 5 0103 #### [facility] [address] [place] [address], [place] eGFR- 27 ml/min/1.73sq m Abnormal >60 The [facility] Comment on above: Order Comment: No: D o not add to previous draw Performed By: #### 5 0103 #### [facility] [address] [place] [address], [place] eGFR- non- 22 ml/min/1.73sq m Abnormal >60 The [facility] Comment on above: Order Comment: No: D o not add to previous draw Performed By: #### 5 0103 #### [facility] [address] [place] [address], [place] Glucose [Mass/Vol] 114 mg/dL High 70-100 The [facility] Comment on above: Order Comment: No: D o not add to previous draw Performed By: #### 5 0103 #### [facility] [address] [place] [address], [place] Potassium [Moles/Vol] 4.5 mmol/L Normal 3.5-5.1 The [facility] Comment on above: Order Comment: No: D o not add to previous draw Performed By: #### 5 0103 #### [facility] [address] [facility] [place] [place] [address], [facility] Sodium [Moles/Vol] 138 mmol/L Normal 136-145 The [facility] Comment on above: Order Comment: No: D o not add to previous draw Performed By: #### 5 0103 #### [facility] [address] Urea nitrogen [Mass/Vol] 58 mg/dL High 7-25 The [facility] Comment on above: Order Comment: No: D o not add to previous draw Performed By: #### 5 0103 #### [facility] [address] CBC W/DIFFon 08-01-2021 ABS IMM GRANS 0.0 10*3/uL Normal 0.0-0.2 The [facility] Comment on above: Order Comment: No: D o not add to previous draw Performed By: #### 5 0103 #### [facility] [address] [place] [address], [facility] ABS NEUTROPHILS 5.7 10*3/uL Normal 1.6-7.6 The [facility] Comment on above: Order Comment: No: D o not add to previous draw Performed By: #### 5 0103 #### [facility] [address] [place] [address], [facility] Basophils (Bld) [#/Vol] 0.0 10*3/uL Normal 0.0-0.2 The [facility] Comment on above: Order Comment: No: D o not add to previous draw Performed By: #### 5 0103 #### [facility] [address] [place] [address], [facility] Basophils/100 WBC (Bld) 0.4 % Normal 0.0-1.0 The [facility] Comment on above: Order Comment: No: D o not add to previous draw Performed By: #### 5 0103 #### [facility] [address] [facility] [place] [address], [facility] Eosinophils (Bld) [#/Vol] 0.0 10*3/uL Normal 0.0-0.5 The [facility] Comment on above: Order Comment: No: D o not add to previous draw Performed By: #### 5 0103 #### [facility] [address] [place] [address], [facility] Eosinophils/100 WBC (Bld) 0.6 % Normal 0.0-6.0 The [facility] Comment on above: Order Comment: No: D o not add to previous draw Performed By: #### 5 0103 #### [facility] [address] Erythrocyte distribution width (RBC) [Ratio] 14.8 % Normal 11.5-15.0 The [facility] Comment on above: Order Comment: No: D o not add to previous draw Performed By: #### 5 0103 #### [facility] [address] [facility] [address], [facility] Hematocrit (Bld) [Volume fraction] 37.0 % Low 39.0-50.0 The [facility] Comment on above: Order Comment: No: D o not add to previous draw Performed By: #### 5 0103 #### [facility] [address] [facility] [address], [facility] Hemoglobin (Bld) [Mass/Vol] 11.4 g/dL Low 13.0-17.0 The [facility] Comment on above: Order Comment: No: D o not add to previous draw Performed By: #### 5 0103 #### [facility] [address] [place] [address], [facility] IMMATURE GRANS 0.4 % Normal 0.0-1.0 The [facility] Comment on above: Order Comment: No: D o not add to previous draw Performed By: #### 5 0103 #### [facility] [address] [place] [address], [facility] Lymphocytes (Bld) [#/Vol] 0.4 10*3/uL Low 1.2-4.0 The [facility] Comment on above: Order Comment: No: D o not add to previous draw Performed By: #### 5 0103 #### [facility] [address] [place] [address], [facility] Lymphocytes/100 WBC (Bld) 5.6 % Low 20.0-45.0 The [facility] Comment on above: Order Comment: No: D o not add to previous draw Performed By: #### 5 0103 #### [facility] [address] [place] [id number], [facility] MCH (RBC) [Entitic mass] 27.9 pg Normal 27.0-33.0 The [facility] Comment on above: Order Comment: No: D o not add to previous draw Performed By: #### 5 0103 #### [facility] [address] [facility] [place] [address], [facility] MCHC (RBC) [Mass/Vol] 30.8 g/dL Low 32.0-35.0 The [facility] Comment on above: Order Comment: No: D o not add to previous draw Performed By: #### 5 0103 #### [facility] [address] [place] [id number], [facility] MCV (RBC) [Entitic vol] 90.5 fL Normal 82.0-98.0 The [facility] Comment on above: Order Comment: No: D o not add to previous draw Performed By: #### 5 0103 #### [facility] [address] [place] [id number], [facility] Monocytes (Bld) [#/Vol] 0.6 10*3/uL Normal 0.1-1.0 The [facility] Comment on above: Order Comment: No: D o not add to previous draw Performed By: #### 5 0103 #### [facility] [address] [place] [address], [facility] MONOS 8.7 % Normal 5.0-12.0 The [facility] Comment on above: Order Comment: No: D o not add to previous draw Performed By: #### 5 0103 #### [facility] [address] [place] [address], [facility] Neutrophils/100 WBC (Bld) 84.3 % High 40.0-72.0 The [facility] Comment on above: Order Comment: No: D o not add to previous draw Performed By: #### 5 0103 #### [facility] [address] [place] [address], [facility] Nucleated RBC/100 WBC (Bld) [Ratio] 0 % Normal 0-0 The [facility] Comment on above: Order Comment: No: D o not add to previous draw Performed By: #### 5 0103 #### [facility] [address] [place] [address], [facility] PLAT CNT 144 10*3/uL Low 150-400 The [facility] Comment on above: Order Comment: No: D o not add to previous draw Performed By: #### 5 0103 #### [facility] [address] [place] [address], [facility] RBC (Bld) [#/Vol] 4.09 10*6/uL Low 4.20-5.70 The [facility] Comment on above: Order Comment: No: D o not add to previous draw Performed By: #### 5 0103 #### [facility] [address] [place] [address], [place] WBC (Bld) [#/Vol] 6.75 10*3/uL Normal 4.00-10.60 The [facility] Comment on above: Order Comment: No: D o not add to previous draw Performed By: #### 5 0103 #### [address] CHEST AND LATERALon 08-01-20 CHEST AND LATERAL [facility] Department of Radiology [address] [place] [id number] Patient Name: MAN PATEL : 1950 Sex: M Age: Race: White Pt. Location: [facility] Patient Status: I Ordered Date: 08/01/2021 [...] pneumothorax. Electronically signed: Dilcia Hernandez. Transcribed by: [email or web address], User Resident: Electronically Signed by: DILCIA HERNANDEZ @ 08/01/2021 08:57 AM Normal The [facility] Comment on above: Order Comment: Check Pacemaker/AICD Lead Position, Chest X-ray PA \EANDE\ LAT in Dept ;DO NOT lift affected arm above shoulder. S/P pacemaker/ICD implant. Verify lead placement CPKon 08-01-2021 CK [Catalytic activity/Vol] 576 U/L High 30-223 [facility] [facility] Comment on above: Performed By: #### 5 0103 #### [address] Cardiovascular Lab Reporton 08-01-2021 Cardiovascular Lab Report [facility] MR #: [id number] Department of Physician: Inocencio Franks M.D. Medicine Service Date: 07/31/2021 Division of Birthdate: 1950 Cardiology Room #: 5AB [id number] Adult Cardiovascular Services [place] [address] Cardiovascular Laboratory Report INDICATION FOR PERMANENT PACEMAKER [...] silk suture. They were connected to a [employer] [place] dual-chamber pacing system. This was positioned [...] Franks M.D. Date Trans: 08/01/2021 05:31 A/surekha [id number] Normal [facility] MAGNESIUM BLOODon 08-01-2021 Magnesium [Mass/Vol] 2.2 mg/dL Normal 1.9-2.7 [facility] Comment on above: Order Comment: No: D o not add to previous draw Performed By: #### 5 0103 #### [facility] [address] PHOSPHORUS BLOODon 1 Phosphate [Mass/Vol] 2.9 mg/dL Normal 2.5-5.0 [facility] Comment on above: Order Comment: No: D o not add to previous draw Performed By: #### 5 0103 #### [facility] [address] PROTHROMBIN TIMEon 1 INR Coag (PPP) [Relative time] 1.54 {INR} High 0.91-1.16 [facility] Comment on above: Order Comment: No: [...] #### [facility] [address] PT Coag (PPP) [Time] 18.4 s High 12.3-14.8 [facility] Comment on above: Order Comment: No: D o not add to previous draw Result Comment: ALL RESULTS MUST BE INTERPRETED WITH RESPECT TO BLOOD DRAWING ARTIFACT OR DILUTION ERROR OF ANTICOAGULANT AT THE TIME OF SAMPLING. Performed By: #### 5 0103 #### [facility] [address] INR Coag (PPP) [Relative time] 1.68 {INR} High 0.91-1.16 [facility] Comment on above: Result Comment: ACCC [...] RANGE. CHEST 1995;108:231S-246S. Performed By: #### 5 102 #### [facility] [address] [place] [address], [facility] PT Coag (PPP) [Time] 19.7 s High 12.3-14.8 [facility] Comment on above: Result Comment: ALL RESULTS MUST BE INTERPRETED WITH RESPECT TO BLOOD DRAWING ARTIFACT OR DILUTION ERROR OF ANTICOAGULANT AT THE TIME OF SAMPLING. Performed By: #### 5 102 #### [facility] [address] [place] [id number], [facility] URIC ACID BLOODon 08-01-2021 Urate [Mass/Vol] 10.1 mg/dL High 4.4-7.6 [facility] Comment on above: Performed By: #### 5 102 #### [facility] [address] [place] [address], [facility] BASIC METABOLIC PANELon 11-2 Calcium [Mass/Vol] 7.3 mg/dL Low 8.6-10.3 [facility] Comment on above: Performed By: #### 3 2044 #### [facility] [address] [place] [address], [place] Chloride [Moles/Vol] 111 mmol/L High 98-107 [facility] Comment on above: Performed By: #### 3 2044 #### [facility] [address] [place] [address], [place] CO2 [Moles/Vol] 17 mmol/L Low 21-31 [facility] Comment on above: Performed By: #### 3 2044 #### [facility] [address] [place] [address], [place] Creatinine [Mass/Vol] 2.68 mg/dL High 0.70-1.30 [facility] Comment on above: Performed By: #### 3 2044 #### [facility] [address] eGFR- 29 ml/min/1.73sq m Abnormal >60 [facility] Comment on above: Performed By: #### 3 2044 #### [facility] 3000 [facility] [address], [facility] eGFR- non- 24 ml/min/1.73sq m Abnormal >60 [facility] Comment on above: Performed By: #### 3 2044 #### [facility] [address] [place] [address], [facility] Glucose [Mass/Vol] 147 mg/dL High 70-100 [facility] Comment on above: Performed By: #### 3 2044 #### [facility] [address] Potassium [Moles/Vol] 4.4 mmol/L Normal 3.5-5.1 [facility] Comment on above: Performed By: #### 3 2044 #### [facility] [address] [place] [address], [facility] Sodium [Moles/Vol] 138 mmol/L Normal 136-145 [facility] Comment on above: Performed By: #### 3 2044 #### [facility] [address] Urea nitrogen [Mass/Vol] 55 mg/dL High 7-25 [facility] Comment on above: Performed By: #### 3 2044 #### [facility] [address] [place] [address], [facility] CBC W/DIFFon 07-31-2021 ABS IMM GRANS 0.0 10*3/uL Normal 0.0-0.2 [facility] Comment on above: Performed By: #### 5 3 #### [facility] [address] [place] [address], [facility] ABS NEUTROPHILS 10.7 10*3/uL High 1.6-7.6 [facility] Comment on above: Performed By: #### 5 0103 #### [facility] [address] [facility] [place] [address], [facility] Basophils (Bld) [#/Vol] 0.0 10*3/uL Normal 0.0-0.2 [facility] Comment on above: Performed By: #### 5 0103 #### [facility] [address] [place] [address], [facility] Basophils/100 WBC (Bld) 0.3 % Normal 0.0-1.0 [facility] Comment on above: Performed By: #### 5 0103 #### [facility] [address] [facility] [address], [facility] Eosinophils (Bld) [#/Vol] 0.1 10*3/uL Normal 0.0-0.5 [facility] Comment on above: Performed By: #### 5 0103 #### [facility] [address] [place] [address], [facility] Eosinophils/100 WBC (Bld) 0.4 % Normal 0.0-6.0 [facility] Comment on above: Performed By: #### 5 0103 #### [facility] [address] Erythrocyte distribution width (RBC) [Ratio] 14.6 % Normal 11.5-15.0 [facility] Comment on above: Performed By: #### 5 0103 #### [facility] [address] [place] [address], [facility] Hematocrit (Bld) [Volume fraction] 44.3 % Normal 39.0-50.0 [facility] Comment on above: Performed By: #### 5 0103 #### [facility] [address] [place] [address], [facility] Hemoglobin (Bld) [Mass/Vol] 13.6 g/dL Normal 13.0-17.0 [facility] Comment on above: Performed By: #### 5 0103 #### [facility] [address] [place] [address], [facility] IMMATURE GRANS 0.3 % Normal 0.0-1.0 [facility] Comment on above: Performed By: #### 5 3 #### [facility] [address] [place] [address], [facility] Lymphocytes (Bld) [#/Vol] 0.5 10*3/uL Low 1.2-4.0 [facility] Comment on above: Performed By: #### 5 3 #### [facility] [address] Lymphocytes/100 WBC (Bld) 4.1 % Low 20.0-45.0 [facility] Comment on above: Performed By: #### 5 0103 #### [facility] [address] [place] [address], [facility] MCH (RBC) [Entitic mass] 27.6 pg Normal 27.0-33.0 [facility] Comment on above: Performed By: #### 5 0103 #### [facility] [address] [place] [address], [facility] MCHC (RBC) [Mass/Vol] 30.7 g/dL Low 32.0-35.0 [facility] Comment on above: Performed By: #### 5 0103 #### [facility] [address] [place] [address], [facility] MCV (RBC) [Entitic vol] 90.0 fL Normal 82.0-98.0 [facility] Comment on above: Performed By: #### 5 3 #### [facility] 3000 [place] [address], [facility] Monocytes (Bld) [#/Vol] 1.0 10*3/uL Normal 0.1-1.0 [facility] Comment on above: Performed By: #### 5 0103 #### [facility] [address] [place] [address], [facility] MONOS 8.3 % Normal 5.0-12.0 [facility] Comment on above: Performed By: #### 5 3 #### [facility] [address] [facility] [place] [address], [facility] Neutrophils/100 WBC (Bld) 86.6 % High 40.0-72.0 [facility] Comment on above: Performed By: #### 102 #### [facility] [address] [facility] [place] [address], [facility] Nucleated RBC/100 WBC (Bld) [Ratio] 0 % Normal 0-0 [facility] Comment on above: Performed By: #### 5 102 #### [facility] [address] [facility] [address], [facility] PLAT CNT 175 10*3/uL Normal 150-400 [facility] Comment on above: Performed By: #### 5 102 #### [facility] [address] [facility] [place] [address], [facility] RBC (Bld) [#/Vol] 4.92 10*6/uL Normal 4.20-5.70 [facility] Comment on above: Performed By: #### 5 3 #### [facility] [address] [facility] [address], [facility] WBC (Bld) [#/Vol] 12.36 10*3/uL High 4.00-10.60 [facility] Comment on above: Performed By: #### 102 #### [facility] [address] [facility] [address], [facility] POC SARS COV2 ANTIGEN NEGATI VEon 11-23-2021 POC SARS COV2 ANTIGEN NEG Negative Normal NEGATIVE [facility] Comment on above: Result Comment: Nega [...] of Accreditation. Performed By: #### 3 1977 ####[address] PORTABLE CHEST 1 VIEWon 07-10 PORTABLE CHEST 1 VIEW [facility] Department of Radiology [address] [place] [id number] Patient Name: MAN PATEL : 1950 Sex: M Age: Race: White Pt. Location: [facility] Patient Status: E Ordered Date: 07/31/2021 [...] sternotomy. Electronically signed: Rinku Agrawal. Transcribed by: [id number], User Resident: Electronically Signed by: RINKU AGRAWAL @ 07/31/2021 01:03 PM Normal [facility] Comment on above: Order Comment: Evalu ate for Aspiration TROPONIN-Ion 07-31-2021 Troponin I.cardiac [Mass/Vol] 0.07 ng/mL High 0.00-0.04 [facility] Comment on above: Result Comment: REFE RENCE RANGES: 0.00 - 0.04 ng/ml NORMAL 0.05 - 0.50 ng/ml INDETERMINATE > 0.50 ng/ml CONSISTENT WITH AN M.I. Performed By: #### 3 2044 #### [facility] 3000 [facility]. [address] TSH3 WITH REFLEX FT4on 07-31 TSH 3RD GENERATION 1.98 uIU/mL Normal 0.34-5.60 [facility] Comment on above: Performed By: #### 3 2044 #### [facility] [address] [facility] [address], [facility] Vital Signs Date Time Vital Sign Value Performing Clinician Facility 06-08-2024 13:54-0400 Body mass index (BMI) [Ratio] 43.5 kg/m2 [facility] 06-08-2024 13:47-0400 Body height 175.26 cm [facility] 06-08-2024 13:47-0400 Body temperature 98 [degF] [facility] 06-08-2024 13:47-0400 Body weight 133.8 kg [facility] 06-08-2024 13:47-0400 Diastolic blood pressure 73 mm[Hg] [facility] 06-08-2024 13:47-0400 Heart rate 93 /min [facility] 06-08-2024 13:47-0400 Respiratory rate 18 /min [facility] 06-08-2024 13:47-0400 SaO2% (BldA) [Mass fraction] 92 % [facility] 06-08-2024 13:47-0400 Systolic blood pressure 120 mm[Hg] [facility] 12-23-2023 13:53-0400 Body height 175.26 cm [facility] 12-23-2023 13:53-0400 Body mass index (BMI) [Ratio] 43.8 kg/m2 [facility] 12-23-2023 13:53-0400 Body temperature 96.9 [degF] [facility] 12-23-2023 13:53-0400 Body weight 134.71 kg [facility] 12-23-2023 13:53-0400 Diastolic blood pressure 60 mm[Hg] [facility] 12-23-2023 13:53-0400 Heart rate 91 /min [facility] 12-23-2023 13:53-0400 Respiratory rate 20 /min [facility] 12-23-2023 13:53-0400 SaO2% (BldA) [Mass fraction] 97 % [facility] 12-23-2023 13:53-0400 Systolic blood pressure 110 mm[Hg] [facility] 05-27-2023 13:00-0400 Body height 175.26 cm Dedra Mendoza Other [facility] Other 05-27-2023 13:00-0400 Body mass index (BMI) [Ratio] 41.93 kg/m2 Aziz Bakhous Other [facility] Other 05-27-2023 13:00-0400 Body temperature 96.8 [degF] Aziz Bakhous Other [facility] Other 05-27-2023 13:00-0400 Body weight 128.82 kg Azduyen Bakhous Other [facility] Other 05-27-2023 13:00-0400 Diastolic blood pressure 64 mm[Hg] Aziz Bakhous Other [facility] Other 05-27-2023 13:00-0400 Respiratory rate 20 /min Dedra Kohous Other [facility] Other 05-27-2023 13:00-0400 SaO2% (BldA) [Mass fraction] 96 % Dedra Bakhous Other [facility] Other 05-27-2023 13:00-0400 Systolic blood pressure 111 mm[Hg] Azduyen Bakhous Other [facility] Other 12-10-2022 15:00-0400 Body height 175.26 cm Azduyen Bakhous Other [facility] Other 12-10-2022 15:00-0400 Body mass index (BMI) [Ratio] 39.75 kg/m2 Aziz Bakhous Other [facility] Other 12-10-2022 15:00-0400 Body temperature 96.7 [degF] Aziz Bakhous Other [facility] Other 12-10-2022 15:00-0400 Body weight 122.11 kg Aziz Bakhous Other [facility] Other 12-10-2022 15:00-0400 Diastolic blood pressure 70 mm[Hg] Aziz Bakhous Other [facility] Other 12-10-2022 15:00-0400 Respiratory rate 20 /min Aziz Bakhous Other [facility] Other 12-10-2022 15:00-0400 SaO2% (BldA) [Mass fraction] 95 % Aziz Bakhous Other [facility] Other 12-10-2022 15:00-0400 Systolic blood pressure 110 mm[Hg] Aziz Bakhous Other [facility] Other 09-17-2022 11:00-0500 Body height 175.26 cm Aziz Bakhous Other [facility] Other 09-17-2022 11:00-0500 Body mass index (BMI) [Ratio] 39.54 kg/m2 Aziz Bakhous Other [facility] Other 09-17-2022 11:00-0500 Body temperature 96.2 [degF] Aziz Bakhous Other [facility] Other 09-17-2022 11:00-0500 Body weight 121.47 kg Aziz Bakhous Other [facility] Other 09-17-2022 11:00-0500 Diastolic blood pressure 60 mm[Hg] Aziz Bakhous Other [facility] Other 09-17-2022 11:00-0500 Respiratory rate 20 /min Dedra Mendoza Other [facility] Other 09-17-2022 11:00-0500 SaO2% (BldA) [Mass fraction] 97 % Dedra Mendoza Other [employer] [facility] [employer] Other 09-17-2022 11:00-0500 Systolic blood pressure 102 mm[Hg] Dedra Mendoza Other [facility] [employer] Other 06-27-2022 17:43-0400 Diastolic blood pressure 56 mm[Hg] MD Cullen Costa Work Phone: [facility] 06-27-2022 17:43-0400 Heart rate 78 /min MD Cullen Costa Work Phone: [facility] 06-27-2022 17:43-0400 Respiratory rate 20 /min MD Cullen Costa Work Phone: [facility] 06-27-2022 17:43-0400 SaO2% (BldA) [Mass fraction] 95 % MD Cullen Costa Work Phone: [facility] 06-27-2022 17:43-0400 Systolic blood pressure 109 mm[Hg] MD Cullen Costa Work Phone: [facility] 06-27-2022 14:32-0400 Body height 167.64 cm MD Cullen Costa Work Phone: [facility] 06-27-2022 14:32-0400 Body temperature 97.8 [degF] MD Cullen Costa Work Phone: [facility] 06-27-2022 14:32-0400 Body weight 117.02 kg MD Cullen Costa Work Phone: [facility] Encounters Encounter Date Encounter Type Care Provider Facility Start: 06-15-2024 ambulatory [facility] Start: 06-09-2024 End: 06-09-2024 ambulatory [facility] Start: 06-09-2024 End: 06-09-2024 ambulatory [facility] Start: 06-08-2024 End: 06-08-2024 ambulatory [facility] Work Phone: Start: 06-08-2024 End: 06-08-2024 Patient encounter procedure [facility] Work Phone: Start: 06-02-2024 Non-patient / Non-visit [facility] Work Phone: Start: 05-05-2024 End: 05-05-2024 ambulatory CYNTHIA [facility] Start: 04-30-2024 Non-patient / Non-visit [facility] Work Phone: Start: 01-27-2024 End: 01-27-2024 ambulatory [facility] Start: 12-23-2023 End: 12-23-2023 ambulatory [facility] Work Phone: Start: 12-23-2023 End: 12-23-2023 Patient encounter procedure [facility] Work Phone: Start: 12-17-2023 Non-patient / Non-visit [facility] Work Phone: Start: 10-20-2023 End: 10-20-2023 ambulatory [facility] Start: 07-28-2023 End: 07-28-2023 ambulatory [facility] Start: 06-09-2023 End: 06-09-2023 ambulatory Cullen Costa Other [facility] [employer] Other Start: 06-09-2023 Telephone encounter Cullen Costa [facility] Start: 05-27-2023 End: 05-27-2023 ambulatory Aziz Bakhous Other [facility] Other Start: 05-27-2023 Office outpatient visit 25 minutes Aziz Bakhous [facility] Start: 05-20-2023 End: 05-20-2023 ambulatory Cullen Costa Other [facility] Other Start: 05-20-2023 Telephone encounter Cullen Costa [facility] Start: 12-10-2022 End: 12-10-2022 ambulatory Aziz Bakhous Other [facility] Other Start: 12-10-2022 Office outpatient visit 25 minutes Aziz Bakhous [facility] Start: 12-03-2022 End: 12-04-2022 ambulatory AZIZ BAKHOUS Facility:[facility] Start: 11-27-2022 End: 11-28-2022 ambulatory AZIZ BAKHOUS Facility:[facility] Start: 09-17-2022 End: 09-17-2022 ambulatory Aziz Bakhous Other [facility] Other Start: 09-17-2022 Office outpatient ne w 30 minutes Aziz Bakhous [facility] Start: 07-25-2022 End: 07-25-[address] MARK INIGUEZ Facility:[facility] Start: 07-10-2022 End: 07-11-[address] TIGIST IGLESIAS Facility:[facility] Start: 06-27-2022 End: 06-27-2022 Emergency department patient visit Cullen Costa Facility:[facility] Start: 06-27-2022 End: 06-27-2022 Emergency department patient visit MD Cullen Costa Work Phone: [facility] Start: 06-24-2022 End: 06-25-2022 ambulatory GAGE SIMPSON Facility:[facility] Start: 04-29-2022 ambulatory MIS STORM Faci lity:[facility] Start: 04-26-2022 End: 05-03-2022 ambulatory CULLEN COSTA Facility:[facility] Start: 04-25-2022 End: 05-09-2022 Evaluation and management of inpatient TAYLOR HOWARD Facility:[facility] Start: 04-24-2022 End: 04-25-2022 ambulatory VIOLETA [...] Evaluation and management of inpatient REFERRED SELF Facility:[facility] Procedures Date Procedure Procedure Detail Performing [...] limb veins US venous duplex LE BI [facility] Start: 06-27-2022 US Lower extremity v ein - bilateral [facility] Bacteria identified in Blood by Culture [facility] Patient Education Cellulitis (Sk in Infection), Adult (DC) [facility] Work Phone: Patient referral [facility] Work Phone: Renal function 1999 panel - Serum or Plasma [facility] Renal function 1999 panel - Serum or Plasma [facility] Payers Date Payer Category Payer Unknown [id number] 1959 Medicare [id number] 1959 Self-pay 1959 Unknown [id number] 1950 Unknown [id number] 2.16.8 40.1.800403.3.579.2.647 1950 Unknown [id number] 2.16.8 40.1.168594.3.579.2.647 1950 Unknown [id number] 2.16.8 40.1.099746.3.579.2.647 1950 Unknown [id number] 2.16.84 0.1.066086.3.579.2.593 1950 Unknown [id number] 2.16.84 0.1.049470.3.579.2.593 1950 Unknown [id number] 2.16.84 0.1.997846.3.579.2.593 1950 Unknown [id number] 2.16.84 0.1.957675.3.579.2.593 1950 Unknown [id number] 2.16.84 0.1.192426.3.579.2.593 1950 Unknown [id number] 2.16.84 0.1.389075.3.579.2.593 1950 Unknown [id number] 2.16.84 0.1.763478.3.579.2.593 1952 Unknown [id number] 2.16.84 0.1.206301.3.579.2.593 1952 Unknown [id number] 2.16.84 0.1.841909.3.579.2.593 1952 Unknown [id number] 2.16.84 0.1.523856.3.579.2.593 1952 Unknown [id number] 2.16.84 0.1.819806.3.579.2.593 1950 Unknown [id number] 2.16.84 0.1.243451.3.579.2.593 1952 Unknown [id number] 2.16.84 0.1.804126.3.579.2.593 1952 Unknown [id number] 2.16.84 0.1.655686.3.579.2.593 1952 Unknown [id number] 2.16.84 0.1.766999.3.579.2.593 1950 Unknown [id number] 2.16.84 0.1.601311.3.579.2.593 1950 Unknown [id number] 2.16.84 0.1.947083.3.579.2.593 1950 Unknown [id number] 2.16.84 0.1.630296.3.579.2.593 1952 Unknown [id number] 2.16.84 0.1.615010.3.579.2.593 1952 Unknown [id number] 2.16.84 0.1.429674.3.579.2.593 1952 Unknown [id number] 2.16.84 0.1.269279.3.579.2.593 1950 Unknown [id number] 2.16.84 0.1.663776.3.579.2.593 Unknown [id number] 2.16.8 40.1.390849.3.579.2.531 Unknown [facility] [id number] Social History Date Type Detail Facility Start: 06-27-2022 End: 12-23-2023 Tobacco smoking status NHIS Never smoked tobacco (finding) [facility] Start: 1950 Sex Assigned At Male F [facility] Sex Assigned At Sex Assigned At Bir th [facility] Other Clinical Notes 08-02-2021 to 06-09-2024 Note Date & Type Note Facility 06-09-2024 Note [place] [facility] Subjective Man Patel is a [...] MORNING AND AT (more content not included)... [facility] 05-05-2024 Note Cardiovascular Medic [facility] SUBJECTIVE Chief Complaint Patient presents [...] soft. Musculoskeletal: G (more content not included)... [facility] 05-05-2024 Note Pt is here for a fol low up with echo and labs. Pt denies palpatations, chest pain, dizzines. Review of Systems Cardiovascular: Positive for leg swelling. Hematologic/Lymphatic: Bruises/bleeds easily. All other systems reviewed and are negative. [facility] 01-27-2024 Note This report has been cancelled. [facility] 10-20-2023 Note [place] [facility] Subjective Man Patel is a [...] or chew., Disp: (more content not included)... [facility] 05-27-2023 Evaluation note Encounter Date Diagnosis [...] I50.20) Patient follows with cardiology clinic in [facility] every 3 months. Has had seems compensating. [...] 2.4 cm in the right 4.2 cm [facility] Other 04-04-2023 Evaluation note* Encounter Date Diagnosis [...] I50.20) Patient follows with cardiology clinic in [facility] every 3 months. Has had seems compensating. [...] D is low. As the patient take mxzr-[id number] vitamin D supplement 2000 unit daily Dec, [...] 2.4 cm in the right 4.2 cm [facility] Other 01-10-2023 Evaluation note* Encounter Date Diagnosis [...] I50.20) Patient follows with cardiology clinic in [facility] every 3 months. Has had seems compensating. Patient on spironolactone and Bumex. Patient follows low-salt diet hours himself every day. Sep, Presence of permanent cardiac pacemaker (ICD-10 - Z95.0) Patient has history of complete heart block status post permanent pacemaker with defibrillator placement in 2020. And Eliquis and amiodarone in addition to metoprolol. Follows with cardiology clinic [facility] Other 08-30-2022 NoteMR#: [id number] I [facility] Pt. Name: Man Patel Admitted: 04/25/2022 [...] x2 on 04/29 and 05/03, insertion of [place] catheter and removal, and echocardiogram. CONSULTATIONS: Included Cardiology, Nephrology, vascular service and medical ICU. HOSPITAL COURSE: This patient is a 72-year-old male, who presents to the [facility] as a transfer from [facility] with complaints of worsening shortness of breath and weeping edema. The patient was accepted for transfer by the [facility] Cardiology Service for failed outpatient treatment [...] at this time for discharging to a longterm facility with close followup with Cardiology and [...] The patient is being discharged to a longterm facility. Please note that an addendum may be added to this discharge dictation as the patient's discharge is currently pending placement at this time. MEDICATIONS: As per medication reconciliation and as per above. DISCHARGE INSTRUCTIONS: Activity as tolerated with PT and OT at facility. Heart healthy, low-cholesterol diet with (more content not included)...[facility]11-25-2021 NoteMR#: [id number] I [facility] Pt. Name: Man Patel Admitted: 07/31/2021 [...] reduced ejection fraction, who initially presented to [facility] for bradycardia. He was having syncopal episodes, where he was found to have heart rate in the 30s. Atropine was given at [place] without any help. His blood pressure was stable at that time and was transferred to [facility]. On arrival, his EKG revealed complete [...] and followup as an outpatient close to [place] where the patient is from and interested [...] physician, Dr. Costa, in 1 week at [facility]. 2. Follow up with [facility] Heart on 08/10/2021 for wound/pacemaker check at 11:20 a.m. 3. Follow up with [facility] Cardiovascular on 09/04/2021 at 2:[address] [place] [address] Cintron. 4. Follow up with Nephrology around [place]. TIME SPENT: Time spent for the discharge summary and coordination of care is 39 minutes. Electronically Signed by: Cyrus Ashley MD 08/03/2021 09:08 A Cyrus Ashlye MD I personally saw this patient on the day of the encounter, performed the simms portion(s) of the service and participated in the management and confirm the resident's documentation. Please note there may be an additional personal documentation from me. Date Dict: 08/02/2021/04:43 P/Derick Johnson CNP Date Trans: 08/02/2021 05:18 P/mmo [id number] [facility] noteNo assessment information availableEast [facility] Work Phone: Evaluation noteNo InformationNort Ntirety Other Evaluation note* Diagnosis Onset Date Resolution Status Hyperparathyroidism acute Hypertensive nephropathy acu te Hyperuricemia acute Kidney disease, chronic, stage IV (GFR 15-29 ml/min) acute Presence of permanent cardiac pacemaker acute Renal cyst, acquired acute Systolic congestive heart failure acute Vitamin D deficiency acute [facility] Work Phone: History general Narrative - Reported* Type Description Date Medical History varicose veins Medical History Hypertension Medical History obesity Medical History thrombophlebitis Medical History possible DVT Medical History CAD Medical History ACUTE HYPOXIC RESPIRATORY FAILUR E Surgical History triple bypass 03/2000 Hospitalization History bypass Hospitalization History EDEMIA 06/29 Hospitalization History EDEMIA 04/2022 [facility] Other [facility] general Narrative - Reported* Type Description Date Medical History varicose veins Medical History Hypertension Medical History obesity Medical History thrombophlebitis Medical History possible DVT Medical History CAD Medical History ACUTE HYPOXIC RESPIRATORY FAILUR E Surgical History triple bypass 03/2000 Hospitalization History bypass Hospitalization History EDEMA 06/29 Hospitalization History EDEMA 04/2022 [facility] Other Hospital Discharge instructions Additional Instructions Take antibiotics as instructed until gone Elevate lower extremities You have blood cultures pending Follow-up with home care your primary care doctor call tomorrow for appointment Return here if any problems persist or worsen including fever, chills, increased redness, increased swelling or any other concernEast [facility] Work Phone: Summary Purpose Family [...] and content) DATE CREATED AUTHOR 05/15/2022 [facility] DATE CREATED AUTHOR AUTHOR'S ORGANIZ ATION 07/05/2022 [facility] DATE CREATED AUTHOR AUTHOR'S ORGANIZ ATION 12/11/2022 [facility] DATE CREATED AUTHOR AUTHOR'S ORGANIZ ATION 06/21/2024 [facility] Care Teams (unrecognized sec tion and [...] BE BASED ON THE PRIMARY CLINICAL RECORDS. [employer] provides no warranty or guarantee of the accuracy or completeness of information in this document.
[2024-06-21 12:09] LABS: Anion Gap 11.3; BUN Creatinine Ratio 18.9; Calcium 9.4 mg/dL (8.5-10.1); Carbon Dioxide 29.8 mmol/L (21.0-32.0); Chloride 99 mmol/L (98-107); Estimated GFR (African America 29 (>=60 mL/min/1.73m^2); Estimated GFR (Non-African Ame 24 (>=60 mL/min/1.73m^2); Glucose 169 mg/dL (74-106); Potassium 4.1 mmol/L (3.5-5.1); Sodium 136 mmol/L (136-145)
== END 2024-06-21 11:09 | disposition home or self-care (01) ==
LOC: LAB 11:11
PROVIDERS: PCP Family Medicine; Visit Provider Internal Medicine Interventional Cardiology
DX: I50.23 Acute on chronic systolic (congestive) heart failure (principal)
CPT/HCPCS: 36415; 80048

== ENCOUNTER 2024-10-08 09:27 | Outpatient (OUT) | payer MEDICARE, OTHER, SELFPAY ==
--- OUTSIDE RECORDS SUMMARY | 2024-10-08 09:52 | XMS_ITS | CCD ---
Author Organization [facility] Care Team Providers Care Telephone Order Supervisor Name Role Phone ANNELIESE HOWARDD Admitting Unavailable CULLEN COSTA Primary Care Unavailable LI CINTRON V Referring Unavailable DILLAN HARDY Attending Unavailable CULLEN COSTA Primary Care Unavailable CULLEN COSTA Referring Unavailable LI CINTRON V Admitting Unavailable LI CINTRON V Attending Unavailable SELF, REFERRED Primary Care Unavailable SELF, REFERRED Referring Unavailable FLOR BIGGS Admitting Unavailable CYRUS ASHLEY Attending Unavailable MD Cullen Costa Primary Care Provider [phone] DO Balwinder Chavarria Emergency Provider Cullen Theodore Primary Care Unavailable Balwinder Chavarria Attending Unavailable Balwinder Chavarria Admitting Unavailable Dedra Mednoza Unavailable DEDRA MENDOZA Attending Unavailable DEDRA MENDOZA Admitting Unavailable IGOR, DR CULLEN Felton Primary Care Unavailable MERRIMACK, DR ZE Moraes Consulting Unavailable DEDRA MENDOZA [...] CHI Consulting Unavailable JOHANA, MIS Consulting Unavailable DAMIAN, TIFFANIE Consulting Unavailable MERRIMACK, DR ZE Moraes Attending Unavailable SATURNINO, DR ZE Moraes Admitting Unavailable [facility], DR MEDEIROS Primary Care Unavailable EMETERIO, MIS Dye Attending Unavailable EMETERIO, MIS Dye Admitting Unavailable COSTA, DR CULLEN Felton Primary Care Unavailable BAKRICHARDSON, DEDRA Attending Unavailable BAKHOUS, DEDRA Admitting Unavailable BAKEVANGELINAS, AZIZ Consulting Unavailable IGOR, DR CULLEN Felton Primary Care Unavailable Igor, Cullen Unavailable CYNTHIA PALMA Attending Unavailable MOUKARBEL, LI Attending Unavailable GAGE SIMPSON Referring Unavailable MOUKAINGAEL, LI Referring Unavailable MOUKARBEL, LI Attending Unavailable GAGE SIMPSON Attending Unavailable MOUKARBEL, LI Attending Unavailable MOUKARBEL, LI Admitting Unavailable MOUKAGALI, LI Attending Unavailable GAGE SIMPSON Referring Unavailable Allergies Allergy Classification Reported Allergen(s) Allergy Type Date of Onset Reaction(s) Facility (3 sources) patient allergy list reviewed by nurse or physicia Propensity to adverse reactions 5 Comment:Done [employer] Other (3 sources) Allergies Reconciled Propensity to adverse reactions Unknown [employer] Other Medications Current Medications Medication Drug Class(es) [...] 23, 2023 1:58pm take 3 tablets by [facility] every twelve hours Bumetanide 1 MG 3 tablet Orally TWICE A DAY Active cholecalciferol 0.05 mg oral tablet (8 sources) Vitamin D Start: 12-23-2023 End: 06-08-2024 take 50 ug by mouth once daily Cholecalciferol (Vitamin D3) Active 50 MCG PO Daily June 08, 2024 2:05pm Start: 12-10-2022 take 1 capsule by [facility] once daily Cholecalciferol 25 MCG (1000 UT) 1 capsule Orally Once a day for 90 days Dec, Active take 1 capsule by [facility] once daily Cholecalciferol 25 MCG (1000 [...] 23, 2023 1:59pm take 1 tablet by humaira th every twelve hours hydrALAZINE HCl 10 MG 1 tablet with food Orally Twice a day Active Isosorbide Dinitrate (14 sources) Nitrate Vasodilator Start: 06-05-2024 take 1 tablet by mouth three times daily Isosorbide Dinitrate Active 0 .ROUTE .COMPLEX 270 June 05, 2024 7:40am TAKE 1 TABLET [...] mealtime Potassium Chloride Active 0 .ROUTE .COMPLEX 90 May 12, 2024 1:46pm TAKE 1 TABLET BY MOUTH EVERY DAY WITH FOOD FOR 90 DAYS Start: 12-23-2023 End: 05-12-2024 take 20 mEq by mouth once daily Potassium Chloride Dis continued 20 MEQ PO Daily December 23, 2023 12:00am May 12, 2024 1:46pm take 1 tablet by humaira every twenty-four [...] 2023 2:02pm take 1 capsule by mo deh every twenty-four hours Colace 100 MG 1 [...] disease (6 sources) Atherosclerotic heart disease of [place] coronary artery without angina pectoris; Translations: [Atherosclerosis [...] Onset: 04-01-2022 Episodic Other aftercare (1 source) 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; Translations: [[facility] CURRENT USE OF ASPIRIN] Onset: 07-18-2022 Episodic Other aftercare (3 sources) Other nursing home (current) drug therapy; Translations: [OTH [facility] CURRENT DRUG THERAPY] Onset: 07-18-2022 Episodic Other aftercare (1 source) 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; Translations: [[facility] CURRNT USE ANTICOAGULANTS] Onset: 04-26-2022 Episodic Other [...] Test Name Value Interpretation Reference Range Facility Orders Onlyon 09-14-2024 Orders Only [id number] Man Patel 1950 M Date Provider Department Center 09/14/2024 HOMERO VEGA [facility] Family History Problem Relation Age of Onset Coronary artery disease Mother Hyperlipidemia Mother Hypertension Mother Stroke Mother Diabetes Mother Coronary artery disease Father Hyperlipidemia Father Hypertension Father Family Status - Relation Status Age at Mother Father Normal [facility] Office Visiton 08-03-2024 Follow-up visit [id number] Man Patel 1950 Date Provider Department Center 08/03/2024 Amanda-GAGE SIMPSON [facility]NA [facility] Family History Problem Relation Age of Onset Coronary artery disease Mother Hyperlipidemia Mother Hypertension Mother Stroke Mother Diabetes Mother Coronary artery disease Father Hyperlipidemia Father Hypertension Father Family Status - Relation Status Age at Mother Father Level of Service:15691 SC OFFICE/OUTPATIENT NEW MODERATE MDM 45 MINUTES Reason for Visit and Comments: Follow-up [617963] Normal [facility] Office Visiton 06-21-2024 Follow-up visit [id number] Man Patel 1950 Date Provider Department Center 06/21/2024 LI MADDOX LENA Sanchez Family History Problem Relation Age of Onset Coronary artery disease Mother Hyperlipidemia Mother Hypertension Mother Stroke Mother Diabetes Mother Coronary artery disease Father Hyperlipidemia Father Hypertension Father Family Status - Relation Status Age at Mother Father Level of Service:97291 SC OFFICE/OUTPATIENT ESTABLISHED MOD MDM 30 MIN Normal [facility] 36on 06-18-2024 38 Per diogo increase bumax to 3 mg TID and see GVM sharlene. Pt informed and appt made for friday Normal [facility] Orders Onlyon 06-17-2024 Orders Only [id number] Man Patel 1950 Date Provider Department Center 06/17/2024 DANNIE GO LENA Sanchez Family History Problem Relation Age of Onset Coronary artery disease Mother Hyperlipidemia Mother Hypertension Mother Stroke Mother Diabetes Mother Coronary artery disease Father Hyperlipidemia Father Hypertension Father Family Status - Relation Status Age at Mother Father Normal [facility] Office Visiton 06-09-2024 Follow-up visit [id number] Man Patel 1950 Date Provider Department Center 06/09/2024 LI MADDOX LENA Sanchez Family History Problem Relation Age of Onset Coronary artery disease Mother Hyperlipidemia Mother Hypertension Mother Stroke Mother Diabetes Mother Coronary artery disease Father Hyperlipidemia Father Hypertension Father Family Status - Relation Status Age at Mother Father Level of Service:99244 SC OFFICE/OUTPATIENT ESTABLISHED HIGH MDM 40 MIN Normal [facility] Erythrocyte distribution wid th Auto (RBC) [Ratio]on 06-02-2024 Erythrocyte distribution width (RBC) [Ratio] 15.0 % 11.0-15.0 [facility] Estimated glomerular filtrat ion rate (GFR) non- Americanon 06-02-2024 GFR/1.73 sq M.predicted among non-blacks MDRD (S/P/Bld) [Vol rate/Area] 25 mL/min/{1.73_m2} Low >=60 [facility] Hematocrit Auto (Bld) [Volum e fraction]on 06-02-2024 Hematocrit (Bld) [Volume fraction] 48.1 % 42.0-54.0 [facility] Hemoglobin [Mass/volume] in Bloodon 06-02-2024 Hemoglobin (Bld) [Mass/Vol] 15.3 g/dL 14.0-18.0 [facility] Laboratory - Chemistry and C hemistry - challengeon 06-02-2024 Albumin [Mass/Vol] 3.9 g/dL 3.4-5.0 [facility] Calcium [Mass/Vol] 9.6 mg/dL 8.5-10.1 [facility] Chloride [Moles/Vol] 99 mmol/L 98-107 [facility] CO2 [Moles/Vol] 32.9 mmol/L High 21.0-32.[address] [facility] Creatinine [Mass/Vol] 2.55 mg/dL High 0.70-1.30 [facility] GFR/1.73 sq M.predicted MDRD (S/P/Bld) [Vol rate/Area] 30 mL/min/{1.73_m2} Low >=60 [facility] Glucose [Mass/Vol] 117 mg/dL High 74-106 [facility] Magnesium [Mass/Vol] 2.5 mg/dL High 1.8-2.4 [facility] Potassium [Moles/Vol] 4.0 mmol/L 3.5-5.1 [facility] Sodium [Moles/Vol] 135 mmol/L Low 136-145 [facility] Urate [Mass/Vol] 8.1 mg/dL High 3.5-7.[address] [facility] Urea nitrogen [Mass/Vol] 57.0 mg/dL High 7.0-18.0 [facility] Urea nitrogen/Creatinine [Mass ratio] 22.4 mg/mg [facility] Bilirubin Ql (U) Negative NEGATIVE [facility] Glucose (U) [Mass/Vol] Negative NEGATIVE [facility] Ketones Ql (U) Negative NEGATIVE [facility] pH (U) 6.5 [pH] 5.0-9.0 [facility] Specific gravity (U) [Rel density] 1.015 1.005-1.025 [facility] Urobilinogen Qn (U) 2.0 {Caden'U}/dL Abnormal 0.2-1.0 [facility] Laboratory - Specimen inform ationon 06-02-2024 Appearance (U) CLEAR CLEAR [facility] Color (U) LT. YELLOW YELLOW [facility] Laboratory - Urinalysison Leukocyte esterase Test strip Ql (U) Negative NEGATIVE [facility] Nitrite Ql (U) Negative NEGATIVE [facility] Protein (U) [Mass/Vol] 18.3 mg/dL High <=11.9 [facility] Protein Ql (U) Negative NEG/TRACE [facility] Leukocytes [#/volume] correc chester for nucleated erythrocytes in Blood by Automated counon 06-02-2024 WBC corrected for nucl RBC Auto (Bld) [#/Vol] 8.5 10 3/uL 4.0-11.0 [facility] MCH Auto (RBC) [Entitic mass ]on 06-02-2024 MCH (RBC) [Entitic mass] 30.2 pg 25.9-34.0 [facility] MCHC Auto (RBC) [Mass/Vol]on 06-02-2024 MCHC (RBC) [Mass/Vol] 31.8 g/dL 29.9-35.2 [facility] MCV Auto (RBC) [Entitic vol] on 06-02-2024 MCV (RBC) [Entitic vol] 94.9 fL High 80.0-94.0 [facility] Microalbumin [Mass/volume] i n Urineon 06-02-2024 Albumin DL <= 20 mg/L (U) [Mass/Vol] mg/dL <=30.0 [facility] No Panel Informationon 06-02 25-Hydroxy Vitamin D Total 29.9 ng/mL [facility] Comment on above: <20 ng/mL Vit D defi cient20-<30 ng/mL Vit D [id number] ng/mL Vit D sufficient>100 ng/mL Potential Toxicity Parathyroid Hormone (Intact) 85 pg/mL Abnormal 15-65 [facility] Comment on above: Performed at: [employer] [facility] [employer] [id number] Director: [place] PhD, Phone: [phone] Phosphorus Level 3.3 mg/dL 2.6-4.[address] [facility] Urine Occult Blood Negative NEGATIVE [facility] Urine Random Creatinine 96.57 mg/dL 20.00-300.00 [facility] Platelet mean volume Auto (B ld) [Entitic vol]on 06-02-2024 Platelet mean volume (Bld) [Entitic vol] 9.9 fL 9.5-13.5 [facility] Platelets Auto (Bld) [#/Vol] on 06-02-2024 Platelets (Bld) [#/Vol] 182 10 3/uL 150-450 [facility] RBC Auto (Bld) [#/Vol]on RBC (Bld) [#/Vol] 5.07 10 6/uL 4.70-6.10 [facility] Serum or plasma anion gap de terminationon 06-02-2024 Anion gap [Moles/Vol] 7.1 mmol/L [facility] Urine microalbumin/creatinin e mass ratioon 06-02-2024 Albumin/Creatinine DL <= 20 mg/L (U) [Mass ratio] 13.4 mg/g 0.0-29.9 [facility] Comment on above: NO MICROALBUMINURIA 0-29 MG/GCLINICAL MICROALBUMINURIA 30-300 MG/GMACROALBUMINURIA >300 MG/G Urine protein/creatinine rat ioon 06-02-2024 Protein/Creatinine (U) [Ratio] 0.19 [facility] Office Visiton 05-05-2024 Follow-up visit [id number] Man Patel 1950 M Date Provider Department Center 05/05/2024 CYNTHIA WILLIAMSON CARD [facility] Family History Problem Relation Age of Onset Coronary artery disease Mother Hyperlipidemia Mother Hypertension Mother Stroke Mother Diabetes Mother Coronary artery disease Father Hyperlipidemia Father Hypertension Father Family Status - Relation Status Age at Mother Father Level of Service:62723 SC OFFICE/OUTPATIENT ESTABLISHED MOD MDM 30 MIN Reason for Visit and Comments: Congestive Heart Failure [127] Coronary Artery Disease [187] Normal [facility] Basophils Auto (Bld) [#/Vol] on 04-30-2024 Basophils (Bld) [#/Vol] 0.1 10 3/uL 0.0-0.1 [facility] Basophils/100 WBC Auto (Bld) on 04-30-2024 Basophils/100 WBC (Bld) 0.8 % 0.2-2.0 [facility] Cholesterol in LDL Calc [Mas s/Vol]on 04-30-2024 Cholesterol in LDL [Mass/Vol] 35.0 mg/dL [facility] Comment on above: <100 mg/dl [id number] 0-129 mg/dl NEAR OR ABOVE [id number] mg/dl BORDERLINE [id number] mg/dl HIGH>190 mg/dl VERY HIGH Cholesterol in VLDL Calc [Ma ss/Vol]on 04-30-2024 Cholesterol in VLDL [Mass/Vol] 8.0 mg/dL [facility] Eosinophils/100 WBC Auto (Bl d)on 04-30-2024 Eosinophils/100 WBC (Bld) 8.4 % High 0.9-7.0 [facility] Erythrocyte distribution wid th Auto (RBC) [Ratio]on 04-30-2024 Erythrocyte distribution width (RBC) [Ratio] 15.3 % High 11.0-15.0 [facility] Estimated glomerular filtrat ion rate (GFR) non- Americanon 04-30-2024 GFR/1.73 sq M.predicted among non-blacks MDRD (S/P/Bld) [Vol rate/Area] 26 mL/min/{1.73_m2} Low >=60 [facility] Globulin Calc (S) [Mass/Vol] on 04-30-2024 Globulin (S) [Mass/Vol] 3.6 g/dL [facility] Hematocrit Auto (Bld) [Volum e fraction]on 04-30-2024 Hematocrit (Bld) [Volume fraction] 45.6 % 42.0-54.0 [facility] Hemoglobin [Mass/volume] in Bloodon 04-30-2024 Hemoglobin (Bld) [Mass/Vol] 14.7 g/dL 14.0-18.0 [facility] Laboratory - Chemistry and C hemistry - challengeon 04-30-2024 Albumin [Mass/Vol] 3.6 g/dL 3.4-5.0 [facility] ALP [Catalytic activity/Vol] 110 U/L 46-116 [facility] ALT [Catalytic activity/Vol] 19 U/L 16-63 [facility] AST [Catalytic activity/Vol] 19 U/L 15-37 [facility] Bilirubin [Mass/Vol] 1.2 mg/dL High 0.2-1.0 [facility] Calcium [Mass/Vol] 9.2 mg/dL 8.5-10.1 [facility] Chloride [Moles/Vol] 100 mmol/L 98-107 [facility] Cholesterol [Mass/Vol] 101 mg/dL <=[facility] Cholesterol in HDL [Mass/Vol] 58 mg/dL 40-60 [facility] Comment on above: > or =60 mg/dl - LOW CARDIOVASCULAR RISK<40 mg/dl - HIGH CARDIOVASCULAR RISK CO2 [Moles/Vol] 27.5 mmol/L 21.0-32.[address] [facility] Creatinine [Mass/Vol] 2.45 mg/dL High 0.70-1.30 [facility] Free T4 [Mass/Vol] 1.26 ng/dL 0.76-1.46 [facility] GFR/1.73 sq M.predicted MDRD (S/P/Bld) [Vol rate/Area] 32 mL/min/{1.73_m2} Low >=60 [facility] Glucose [Mass/Vol] 122 mg/dL High 74-106 [facility] Potassium [Moles/Vol] 4.1 mmol/L 3.5-5.1 [facility] Protein [Mass/Vol] 7.2 g/dL 6.4-8.2 [facility] Sodium [Moles/Vol] 137 mmol/L 136-145 [facility] Triglyceride [Mass/Vol] 40 mg/dL <=150 [facility] TSH Qn 2.710 m[IU]/L 0.358-3.740 [facility] Urea nitrogen [Mass/Vol] 53.0 mg/dL High 7.0-18.0 [facility] Urea nitrogen/Creatinine [Mass ratio] 21.6 mg/mg [facility] Laboratory - Hematology and Cell countson 04-30-2024 Immature granulocytes/100 WBC (Bld) 0.6 % High 0.0-0.5 [facility] Leukocytes [#/volume] correc chester for nucleated erythrocytes in Blood by Automated counon 04-30-2024 WBC corrected for nucl RBC Auto (Bld) [#/Vol] 7.2 10 3/uL 4.0-11.0 [facility] Lymphocytes Auto (Bld) [#/Vo l]on 04-30-2024 Lymphocytes (Bld) [#/Vol] 0.7 10 3/uL Low 1.2-3.8 [facility] Lymphocytes/100 WBC Auto (Bl d)on 04-30-2024 Lymphocytes/100 WBC (Bld) 9.7 % Low 20.5-60.0 [facility] MCH Auto (RBC) [Entitic mass ]on 04-30-2024 MCH (RBC) [Entitic mass] 30.0 pg 25.9-34.0 [facility] MCHC Auto (RBC) [Mass/Vol]on 04-30-2024 MCHC (RBC) [Mass/Vol] 32.2 g/dL 29.9-35.2 [facility] MCV Auto (RBC) [Entitic vol] on 04-30-2024 MCV (RBC) [Entitic vol] 93.1 fL 80.0-94.0 [facility] Monocytes Auto (Bld) [#/Vol] on 04-30-2024 Monocytes (Bld) [#/Vol] 0.6 10 3/uL 0.3-0.8 [facility] Monocytes/100 WBC Auto (Bld) on 04-30-2024 Monocytes/100 WBC (Bld) 8.2 % 1.7-12.0 [facility] Neutrophils Auto (Bld) [#/Vo l]on 04-30-2024 Neutrophils (Bld) [#/Vol] 5.2 10 3/uL 1.4-6.5 [facility] Neutrophils/100 WBC Auto (Bl d)on 04-30-2024 Neutrophils/100 WBC (Bld) 72.3 % 43.0-75.0 [facility] No Panel Informationon 04-30 Eosinophils # (Auto) 0.6 10 3/uL 0.0-0.7 [facility] Immature Granulocyte # (Auto) 0.04 10 3/uL High 0.00-0.03 [facility] Platelet mean volume Auto (B ld) [Entitic vol]on 04-30-2024 Platelet mean volume (Bld) [Entitic vol] 10.7 fL 9.5-13.5 [facility] Platelets Auto (Bld) [#/Vol] on 04-30-2024 Platelets (Bld) [#/Vol] 171 10 3/uL 150-450 [facility] RBC Auto (Bld) [#/Vol]on RBC (Bld) [#/Vol] 4.90 10 6/uL 4.70-6.10 [facility] Serum or plasma albumin/glob ulin mass ratioon 04-30-2024 Albumin/Globulin [Mass ratio] 1.0 {ratio} [facility] Serum or plasma anion gap de terminationon 04-30-2024 Anion gap [Moles/Vol] 13.6 mmol/L [facility] Serum or plasma total choles terol/high density lipoprotein (HDL) cholesterol mass ralf 04-30-2024 Cholesterol.total/Chol esterol in HDL [Mass ratio] 1.7 {ratio} [facility] Comment on above: 3.3 - 4.4 LOW RISK4. 4 - 7.1 AVERAGE RISK7.1 - 11.0 MODERATE RISK>11.0 HIGH RISK 36on 04-26-2024 36 Spoke with patient's last week and made her aware that [facility] would be calling to schedule this echo w/ [facility]. [facility] on 04-13-2024 36 Regarding echo resul t from 04/06/2024: MD Key Mao MA He needs a limited echo for LVEF with echocontrast (at [facility]). If the EF is reduced then he needs upgrade of his pacer to CERTIFIED LEGAL INVESTIGATOR/D. Can this be done at [facility] with Mallory? I already know he's not going to be keen on driving to [place]. But if you insist, I will make him aware of the need to go to [facility]. Just thought I'd ask. [facility] 02-12-[address] Simpson wanted pinky ortiz to have echo s/p device check on 01/27/2024. He is due for echo prior to his Apr [address] Cintron. [facility] Erythrocyte distribution wid th Auto (RBC) [Ratio]on 12-17-2023 Erythrocyte distribution width (RBC) [Ratio] 15.6 % 11.0-15.0 [facility] Estimated glomerular filtrat ion rate (GFR) non- Americanon 12-17-2023 GFR/1.73 sq M.predicted among non-blacks MDRD (S/P/Bld) [Vol rate/Area] 22 mL/min/{1.73_m2} >=60 [facility] Globulin Calc (S) [Mass/Vol] on 12-17-2023 Globulin (S) [Mass/Vol] 4.2 g/dL [facility] Hematocrit Auto (Bld) [Volum e fraction]on 12-17-2023 Hematocrit (Bld) [Volume fraction] 46.1 % 42.0-54.0 [facility] Hemoglobin [Mass/volume] in Bloodon 12-17-2023 Hemoglobin (Bld) [Mass/Vol] 14.9 g/dL 14.0-18.0 [facility] Laboratory - Chemistry and C hemistry - challengeon 12-17-2023 Albumin [Mass/Vol] 3.9 g/dL 3.4-5.0 [facility] ALP [Catalytic activity/Vol] 131 U/L 46-116 [facility] ALT [Catalytic activity/Vol] 21 U/L 16-63 [facility] AST [Catalytic activity/Vol] 20 U/L 15-37 [facility] Bilirubin [Mass/Vol] 1.1 mg/dL 0.2-1.0 [facility] Calcium [Mass/Vol] 9.5 mg/dL 8.5-10.1 [facility] Chloride [Moles/Vol] 100 mmol/L 98-107 [facility] CO2 [Moles/Vol] 26.5 mmol/L 21.0-32.[address] [facility] Creatinine [Mass/Vol] 2.90 mg/dL 0.70-1.30 [facility] GFR/1.73 sq M.predicted MDRD (S/P/Bld) [Vol rate/Area] 26 mL/min/{1.73_m2} >=60 [facility] Glucose [Mass/Vol] 112 mg/dL 74-106 [facility] Magnesium [Mass/Vol] 2.9 mg/dL 1.8-2.4 [facility] Potassium [Moles/Vol] 4.4 mmol/L 3.5-5.1 [facility] Protein [Mass/Vol] 8.1 g/dL 6.4-8.2 [facility] Sodium [Moles/Vol] 139 mmol/L 136-145 [facility] Urate [Mass/Vol] 7.8 mg/dL 3.5-7.[address] [facility] Urea nitrogen [Mass/Vol] 64.0 mg/dL 7.0-18.0 [facility] Urea nitrogen/Creatinine [Mass ratio] 22.1 mg/mg [facility] Leukocytes [#/volume] correc chester for nucleated erythrocytes in Blood by Automated counon 12-17-2023 WBC corrected for nucl RBC Auto (Bld) [#/Vol] 7.3 10 3/uL 4.0-11.0 [facility] MCH Auto (RBC) [Entitic mass ]on 12-17-2023 MCH (RBC) [Entitic mass] 29.6 pg 25.9-34.0 [facility] MCHC Auto (RBC) [Mass/Vol]on 12-17-2023 MCHC (RBC) [Mass/Vol] 32.3 g/dL 29.9-35.2 [facility] MCV Auto (RBC) [Entitic vol] on 12-17-2023 MCV (RBC) [Entitic vol] 91.5 fL 80.0-94.0 [facility] No Panel Informationon 12-16 25-Hydroxy Vitamin D Total 27.7 ng/mL [facility] Comment on above: <20 ng/mL Vit D defi cient20-<30 ng/mL Vit D bpdrfqsmzcle71-077 ng/mL Vit D sufficient>100 ng/mL Potential Toxicity Miscellaneous Test COMMENT . [facility] Comment on above: Test Ordered: [id number] Prot+CreatU (Random)Creatinine, Urine 15.1 mg/dL CB Reference Range: Not Estab.Protein,Total,Urine <4.0 mg/dL CB Reference Range: Not Estab.Verified by repeat analysisProtein/Creat Ratio Comment [A ] CB Units of Measure: mg/g creat Reference Range: 0-200This result is below the assay's limit of quantitationindicating a dilute specimen, potentially due to diurnalvariation. Consider recollection at a time likely toprovide a more concentrated urine.Performed at: - [facility] [address] [id number] Director: New Vega PhD, Phone: [phone] Parathyroid Hormone (Intact) 140 pg/mL 15-65 [facility] Comment on above: Performed at: CB - L [facility] [address] [id number] Director: New Vega PhD, Phone: [phone] Phosphorus Level 3.7 mg/dL 2.6-4.[address] [facility] Platelet mean volume Auto (B ld) [Entitic vol]on 12-17-2023 Platelet mean volume (Bld) [Entitic vol] 10.8 fL 9.5-13.5 [facility] Platelets Auto (Bld) [#/Vol] on 12-17-2023 Platelets (Bld) [#/Vol] 195 10 3/uL 150-450 [facility] RBC Auto (Bld) [#/Vol]on RBC (Bld) [#/Vol] 5.04 10 6/uL 4.70-6.10 [facility] Serum or plasma albumin/glob ulin mass ratioon 12-17-2023 Albumin/Globulin [Mass ratio] 0.9 {ratio} [facility] Serum or plasma anion gap de terminationon 12-17-2023 Anion gap [Moles/Vol] 16.9 mmol/L [facility] Office Visiton 10-20-2023 Follow-up visit [id number] Man Patel 1950 M Date Provider Department Center 10/20/2023 LI MADDOX [facility] Family History Problem Relation Age of Onset Coronary artery disease Mother Hyperlipidemia Mother Hypertension Mother Stroke Mother Diabetes Mother Coronary artery disease Father Hyperlipidemia Father Hypertension Father Family Status - Relation Status Age at Mother Father Level of Service:53351 SC OFFICE/OUTPATIENT ESTABLISHED LOW MDM 20 MIN Normal [facility] PTH INTACTon 12-04-2022 PTH, Intact 66 pg/mL Critically high 15-65 [facility] Comment on above: Performed By: #### P THINT ####[facility] [address]spux[address] [place] [id number]. Elba Anthony HEMOGRAM AND PLATELon 2022 Hematocrit (Bld) [Volume fraction] 43.4 % Normal 42.0-54.0 [facility] Comment on above: Performed By: #### H H ####[facility] Rmsfwtqlfx68[address] [place] [id number] Anthony Hemoglobin (Bld) [Mass/Vol] 14.1 g/dL Normal 14.0-18.0 [facility] Comment on above: Performed By: #### H H ####[facility] Qlmtgjpozx11[address] [place] [address]Dr. Elba Anthony MCH (RBC) [Entitic mass] 28.2 pg Normal 25.9-34.0 [facility] Comment on above: Performed By: #### H H ####[facility] Wimxkdfcec[address] [place] [address]Dr. Elba Anthony MCHC (RBC) [Mass/Vol] 32.5 g/dL Normal 29.9-35.2 [facility] Comment on above: Performed By: #### H H ####[facility] Bgnmwqyydf20[address] [place] [address]Dr. Elba Anthony MCV (RBC) [Entitic vol] 86.8 fL Normal 80.0-94.0 [facility] Comment on above: Performed By: #### H H ####[facility] Qkznlrchay9656 [place] [address]Dr. Elba Anthony PLT 170 103/ul Normal 150-450 [facility] Comment on above: Performed By: #### H H ####[facility] Odrjpgxrwg[address] [place], [place] [address]Dr. Elba Anthony RBC 5.00 106/ul Normal 4.70-6.10 [facility] Comment on above: Performed By: #### H H ####[facility] Tbopowhcyo[address] [place] [address]Dr. Elba Anthony WBC 7.2 103/ul Normal 4.0-11.0 [facility] Comment on above: Performed By: #### H H ####[facility] Ykhkeqwlcb[address] [place] [address]Dr. Elba Anthony MAGNESIUMon 12-03-2022 Magnesium [Mass/Vol] 2.6 mg/dL Critically high 1.8-2.4 [facility] Comment on above: Performed By: #### C MP, URIC, PHOS, MG ####[facility] Mbmlzvuzsx[address] [place] [address]Dr. Elba Anthony PHOSPHORUSon 12-03-2022 Phosphate [Mass/Vol] 3.9 mg/dL Normal 2.6-4.7 [facility] Comment on above: Performed By: #### C MP, URIC, PHOS, MG ####[facility] Yqvnezyfeb[address] [place] [address]Dr. Elba Anthony PROF 14(COMP METB)on 023 Albumin [Mass/Vol] 4.0 g/dL Normal 3.4-5.0 [facility] Comment on above: Performed By: #### C MP, URIC, PHOS, MG ####[facility] Xijfeupvzd44[address] [place] [address]Dr. Elba Anthony Albumin/Globulin [Mass ratio] 0.9 {ratio} Normal [facility] Comment on above: Performed By: #### C MP, URIC, PHOS, MG ####[facility] Fqnjwgmnlu7828 [place] [address]Dr. Elba Anthony ALP [Catalytic activity/Vol] 159 U/L Critically high 46-116 [facility] Comment on above: Performed By: #### C MP, URIC, PHOS, MG ####[facility] Nfzddpzikj57[address] [place] [address]Dr. Elba Anthony ALT [Catalytic activity/Vol] 33 U/L Normal 16-63 [facility] Comment on above: Performed By: #### C MP, URIC, PHOS, MG ####[facility] Qobnmsywnj4090 [place] [address]Dr. Elba Anthony Anion gap [Moles/Vol] 15.2 mmol/L Normal [facility] Comment on above: Performed By: #### C MP, URIC, PHOS, MG ####[facility] Tsnphembwi3034 [place] [address]Dr. Elba Anthony AST [Catalytic activity/Vol] 27 U/L Normal 15-37 [facility] Comment on above: Performed By: #### C MP, URIC, PHOS, MG ####[facility] Egnywirkof8882 [place] [address]Dr. Elba Anthony Bilirubin [Mass/Vol] 0.9 mg/dL Normal 0.2-1.0 [facility] Comment on above: Performed By: #### C MP, URIC, PHOS, MG ####[facility] Lrkflgjmpw0500 [place] [address]Dr. Elba Anthony Calcium [Mass/Vol] 9.8 mg/dL Normal 8.5-10.1 [facility] Comment on above: Performed By: #### C MP, URIC, PHOS, MG ####[facility] Drukvxygjw5291 [place] [address]Dr. Elba Anthony Chloride [Moles/Vol] 102 mmol/L Normal 98-107 [facility] Comment on above: Performed By: #### C MP, URIC, PHOS, MG ####[facility] Hxzsotdfih[address] [place], [place] [address]Dr. Elba Anthony CO2 [Moles/Vol] 30.5 mmol/L Normal 21.0-32.0 [facility] Comment on above: Performed By: #### C MP, URIC, PHOS, MG ####[facility] Pdqsyjwvyt[address] [place], [place] [address]Dr. Elba Anthony Creatinine [Mass/Vol] 2.63 mg/dL Critically high 0.70-1.30 [facility] Comment on above: Performed By: #### C MP, URIC, PHOS, MG ####[facility] Juhdcmwack22[address] [place] [address]Dr. Elba Anthony EGFR-AF TUVALUAN 29 mL/min/1.73m2 Critically low >=60 [facility] Comment on above: Performed By: #### C MP, URIC, PHOS, MG ####[facility] Wovvhxknmz38[address] [place] [address]Dr. Elba Anthony EGFR-NON AF TUVALUAN 24 mL/min/1.73m2 Critically low >=60 [facility] Comment on above: Performed By: #### C MP, URIC, PHOS, MG ####[facility] Zuzpxioaez1470 [place] [address]Dr. Elba Anthony Globulin (S) [Mass/Vol] 4.5 g/dL Normal [facility] Comment on above: Performed By: #### C MP, URIC, PHOS, MG ####[facility] Fldguziggz9148 [place] [address]Dr. Elba Anthony Glucose [Mass/Vol] 122 mg/dL Critically high 74-106 [facility] Comment on above: Performed By: #### C MP, URIC, PHOS, MG ####[facility] Eypzwkzsfa85[address] [place] [address]Dr. Elba Anthony Potassium [Moles/Vol] 4.7 mmol/L Normal 3.5-5.1 [facility] Comment on above: Performed By: #### C MP, URIC, PHOS, MG ####[facility] Mbcjtxmdfa6245 [place] [address]Dr. Elba Anthony Protein [Mass/Vol] 8.5 g/dL Critically high 6.4-8.2 [facility] Comment on above: Performed By: #### C MP, URIC, PHOS, MG ####[facility] Vgtvlcxhqy[address] [place], [place] [address]Dr. Elba Anthony Sodium [Moles/Vol] 143 mmol/L Normal 136-145 [facility] Comment on above: Performed By: #### C MP, URIC, PHOS, MG ####[facility] Nwwkqauvgb5139 [place] [address]Dr. Elba Anthony Urea nitrogen [Mass/Vol] 59.0 mg/dL Critically high 7.0-18.0 [facility] Comment on above: Performed By: #### C MP, URIC, PHOS, MG ####[facility] Cjqodtvxgf8657 [place] [address]Dr. Elba Anthony Urea nitrogen/Creatinine [Mass ratio] 22.4 mg/mg Normal [facility] Comment on above: Performed By: #### C MP, URIC, PHOS, MG ####[facility] Rpaidoakah4072 [place] [address]Dr. Elba Anthony UA RANDOMon 12-03-2022 Bilirubin Ql (U) Negative Normal NEGATIVE [facility] Comment on above: Performed By: #### U A ####[facility] Luifikzuje[address] [place] [address]Dr. Elba Anthony Clarity (U) CLEAR Normal CLEAR [facility] Comment on above: Performed By: #### U A ####[facility] Pqovgdcqga[address] [place], [place] [address]Dr. Elba Anthony Color (U) LT. YELLOW Normal YELLOW [facility] Comment on above: Performed By: #### U A ####[facility] Jzzhulimls[address] [place], [place] [address]Dr. Elba Anthony Glucose Ql (U) Negative Normal NEGATIVE [facility] Comment on above: Performed By: #### U A ####[facility] Bpuzjxkdmx[address] [place], [place] [address]Dr. Elba Anthony Hemoglobin Ql (U) Negative Normal NEGATIVE [facility] Comment on above: Performed By: #### U A ####[facility] Oyrcngiyyt[address] [place], [place] [address]Dr. Elba Anthony Ketones Ql (U) Negative Normal NEGATIVE [facility] Comment on above: Performed By: #### U A ####[facility] Uzxlyfosps[address] [place], [place] [address]Dr. Elba Anthony LEUKOCYTES Negative Normal NEGATIVE [facility] Comment on above: Performed By: #### U A ####[facility] Dzyfvecsec[address] [place], [place] [address]Dr. Elba Anthony Nitrite Ql (U) Negative Normal NEGATIVE [facility] Comment on above: Performed By: #### U A ####[facility] Btjjukoqxv[address] [place], [place] [address]Dr. Elba Anthony pH (U) 7.0 [pH] Normal 5-9 [facility] Comment on above: Performed By: #### U A ####[facility] Vqcmwfxlno[address] [place], [place] [address]Dr. Elba Anthony SPEC GRAVITY <=1.005 Abnormal 1.005-<=1.02 5 [facility] Comment on above: Performed By: #### U A ####[facility] Rtsfoewwuk[address] [place], [place] [address]Dr. Elba Anthony UA PROTEIN TRACE Normal NEGATIVE/ TRACE [facility] Comment on above: Performed By: #### U A ####[facility] Jiqcmbhbfy4714 [place] [address]Dr. Elba Anthony Urobilinogen Qn (U) 2.0 {Caden'U}/dL Abnormal 0.2 - 1. 0 [facility] Comment on above: Performed By: #### U A ####[facility] Zmyyjugjea224[address] [place], [place] [address]Dr. Elba Anthony URIC ACID SERUMon 12-03-2022 Urate [Mass/Vol] 9.0 mg/dL Critically high 3.5-7.2 [facility] Comment on above: Performed By: #### C MP, URIC, PHOS, MG ####[facility] Lqxkbdsowi135[address] [place], [place] [address]Dr. Elba Anthony URINE T PROTEIN CREAT RATIOo n 12-03-2022 Protein (U) [Mass/Vol] 26.9 mg/dL Critically high <=12.0 [facility] Comment on above: Performed By: #### U RTPCR ####[facility] Drlofzkihd[address] [place], [place] [address]Dr. Elba Anthony UR PROT CREAT RAT 0.33 Normal [facility] Comment on above: Performed By: #### U RTPCR ####[facility] Laeqsmucdk[address] [place], [place] [address]Dr. Elba Anthony URINE CREAT 82.74 mg/dL Normal 20.00-300.00 [facility] Comment on above: Performed By: #### U RTPCR ####[facility] Tpqjlvhgdu[address] [place], [place] [address]Dr. Elba Anthony VITAMIN D 25 OHon 12-03-2022 VIT D 25-OH 14.7 ng/mL Normal [facility] Comment on above: Performed By: #### V ITAD ####[facility] Nuyhujdjxj110[address] [place], [place] [address]Dr. Elba Anthony VIT D RANGES SEE BELOW Normal [facility] Comment on above: Result Comment: <20 ng/mL Vit D deficient 20 - <30 ng/mL Vit D insufficient 30 - 100 ng/mL Vit D sufficient >100 ng/mL Potential Toxicity Performed By: #### V ITAD ####[facility] Lcqzbxmuee[address] [place], [place] [address]Dr. Elba Anthony US KIDNEYSon 11-27-2022 US KIDNEYS Normal [facility] PROF CHEM 8 (BAS METB)on Anion gap [Moles/Vol] 11.1 mmol/L Normal [facility] Comment on above: Performed By: #### B MP ####[facility] Kkszegoyms[address] [place], [place] [address]Dr. Elba Anthony Calcium [Mass/Vol] 9.0 mg/dL Normal 8.5-10.1 [facility] Comment on above: Performed By: #### B MP ####[facility] Cbsrlmigeg[address] [place], [place] [address]Dr. Elba Anthony Chloride [Moles/Vol] 99 mmol/L Normal 98-107 [facility] Comment on above: Performed By: #### B MP ####[facility] Vbtqdaicfn346[address] [place], [place] [address]Dr. Elba Anthony CO2 [Moles/Vol] 30.3 mmol/L Normal 21.0-32.0 [facility] Comment on above: Performed By: #### B MP ####[facility] Scphkvoajd[address] [place], [place] [address]Dr. Elba Anthony Creatinine [Mass/Vol] 2.43 mg/dL Critically high 0.70-1.30 [facility] Comment on above: Performed By: #### B MP ####[facility] Xhnizjtatt17[address] [place], [place] [address]Dr. Elba Anthony EGFR-AF TUVALUAN 32 mL/min/1.73m2 Critically low >=60 [facility] Comment on above: Performed By: #### B MP ####[facility] Jqmsytwuci82[address] [place], [place] [address]Dr. Elba Anthony EGFR-NON AF TUVALUAN 27 mL/min/1.73m2 Critically low >=60 [facility] Comment on above: Performed By: #### B MP ####[facility] Jhtcvsvbgu3377 [place] [id number]. Elba Anthony Glucose [Mass/Vol] 142 mg/dL Critically high 74-106 [facility] Comment on above: Performed By: #### B MP ####[facility] Fznitjukpp0325 [place] [phone]. Elba Anthony Potassium [Moles/Vol] 4.4 mmol/L Normal 3.5-5.1 [facility] Comment on above: Performed By: #### B MP ####[facility] Jhtlaxnggx6[address] [place], [place] [address]Dr. Elba Raj Sodium [Moles/Vol] 136 mmol/L Normal 136-145 [facility] Comment on above: Performed By: #### B MP ####[facility] Nodjmypyse9[address] [place], [place] [address]Dr. Nereydasiobhan Anthony Urea nitrogen [Mass/Vol] 60.0 mg/dL Critically high 7.0-18.0 [facility] Comment on above: Performed By: #### B MP ####[facility] Ujnjoldxlc[address] [place], [place] [address]Dr. Elba Raj Urea nitrogen/Creatinine [Mass ratio] 24.7 mg/mg Normal [facility] Comment on above: Performed By: #### B MP ####[facility] Efvfdtnlsp[address] [place], [place] [address]Dr. Nereydasiobhan Raj CBC AUTO DIFFon 07-11-2022 BASO # 0.1 103/ul Normal 0.0-0.1 [facility] Comment on above: Performed By: #### C BC ####[facility] Dibdjaccfq404[address] [place], [place] [address]Dr. Elba Anthony Basophils/100 WBC (Bld) 0.8 % Normal 0.2-2.0 [facility] Comment on above: Performed By: #### C BC ####[facility] Eohidpbtub[address] [place], [place] [address]Dr. Elba Anthony EO # 0.9 103/ul Critically high 0.0-0.7 [facility] Comment on above: Performed By: #### C BC ####[facility] Faqsonxsjo7337 [place] [address]Dr. Elba Anthony Eosinophils/100 WBC (Bld) 13.7 % Critically high 0.9-7.0 [facility] Comment on above: Performed By: #### C BC ####[facility] Kdafvvpinx8586 [place] [address]Dr. Elba Anthony Erythrocyte distribution width (RBC) [Ratio] 20.8 % Critically high 11.0-15.0 [facility] Comment on above: Performed By: #### C BC ####[facility] Mtrysxteoy8[address] [place], [place] [address]Dr. Elba Anthony Hematocrit (Bld) [Volume fraction] 35.3 % Critically low 42.0-54.0 [facility] Comment on above: Performed By: #### C BC ####[facility] Ouhwwfalrp8[address] [place], [place] [address]Dr. Elba Anthony Hemoglobin (Bld) [Mass/Vol] 11.5 g/dL Critically low 14.0-18.0 [facility] Comment on above: Performed By: #### C BC ####[facility] Udbozncfzg[address] [place], [place] [address]Dr. Elba Anthony IG # 0.04 10e3/ul Critically high 0.00-0.03 [facility] Comment on above: Performed By: #### C BC ####[facility] Ukkzrxkrfq[address] [place], [place] [address]Dr. Elba Anthony IG % 0.6 % Critically high 0.0-0.5 [facility] Comment on above: Performed By: #### C BC ####[facility] Zlazjscbvz[address] [place], [place] [address]Dr. Elba Anthony LYMPH # 1.1 103/ul Critically low 1.2-3.8 [facility] Comment on above: Performed By: #### C BC ####[facility] Irddktgrvj527[address] [place], [place] [address]Dr. Elba Anthony Lymphocytes/100 WBC (Bld) 17.2 % Critically low 20.5-60.0 [facility] Comment on above: Performed By: #### C BC ####[facility] Dbbyjrxyjy1234 [place] [address]Dr. Elba Anthony MANUAL DIFF REQ NO Normal [facility] Comment on above: Performed By: #### C BC ####[facility] Fdaroeepdv3111 [place] [id number]. Elba Anthony MCH (RBC) [Entitic mass] 27.9 pg Normal 25.9-34.0 [facility] Comment on above: Performed By: #### C BC ####[facility] Ofhibiiduw6473 [place] [address]Dr. Elba Anthony MCHC (RBC) [Mass/Vol] 32.6 g/dL Normal 29.9-35.2 [facility] Comment on above: Performed By: #### C BC ####[facility] Racjlfgtye[address] [place], [place] [address]Dr. Elba Anthony MCV (RBC) [Entitic vol] 85.7 fL Normal 80.0-94.0 [facility] Comment on above: Performed By: #### C BC ####[facility] Cpwzlvpqmg[address] [place], [place] [address]Dr. Elba Anthony MONO # 0.8 103/ul Normal 0.3-0.8 [facility] Comment on above: Performed By: #### C BC ####[facility] Rqjgjuvdbx[address] [place], [place] [address]Dr. Elba Anthony Monocytes/100 WBC (Bld) 13.0 % Critically high 1.7-12.0 [facility] Comment on above: Performed By: #### C BC ####[facility] Ywjvevxhmj7[address] [place], [place] [address]DrLatoya Anthony NEUT # 3.4 103/ul Normal 1.4-6.5 [facility] Comment on above: Performed By: #### C BC ####[facility] Pzlxgyadcr164[address] [place], [place] [address]Dr. Elba Anthony Neutrophils/100 WBC (Bld) 54.7 % Normal 43.0-75.0 [facility] Comment on above: Performed By: #### C BC ####[facility] Fquksjlpnu8188 [place] [address]Dr. Elba Anthony Platelet mean volume (Bld) [Entitic vol] 9.5 fL Normal 9.5-13.5 [facility] Comment on above: Performed By: #### C BC ####[facility] Vgjjcpgltr4641 [place] [address]Dr. Elba Anthony PLT 206 103/ul Normal 150-450 [facility] Comment on above: Performed By: #### C BC ####[facility] Fvmikdhark2168 [place] [address]Dr. Elba Anthony RBC 4.12 106/ul Critically low 4.70-6.10 [facility] Comment on above: Performed By: #### C BC ####[facility] Tjvdbrqfkr5544 [place] [address]Dr. Elba Anthony WBC 6.2 103/ul Normal 4.0-11.0 [facility] Comment on above: Performed By: #### C BC ####[facility] Vpmiohxwbn8925 [place] [address]DrLatoya Anthony PROF CHEM 8 (BAS METB)on Anion gap [Moles/Vol] 10.9 mmol/L Normal [facility] Comment on above: Performed By: #### B MP ####[facility] Krlkmkvmxb7[address] [place], [place] [address]DrLatoya Anthony Calcium [Mass/Vol] 8.9 mg/dL Normal 8.5-10.1 [facility] Comment on above: Performed By: #### B MP ####[facility] Esucejfqet[address] [place], [place] [address]DrLatoya Anthony Chloride [Moles/Vol] 103 mmol/L Normal 98-107 [facility] Comment on above: Performed By: #### B MP ####[facility] Bgimzrllmc6315 [place] [address]DrLatoya Anthony CO2 [Moles/Vol] 31.0 mmol/L Normal 21.0-32.0 [facility] Comment on above: Performed By: #### B MP ####[facility] Jxyfmnszsv2679 [place] [phone]. Elba Anthony Creatinine [Mass/Vol] 2.18 mg/dL Critically high 0.70-1.30 [facility] Comment on above: Performed By: #### B MP ####[facility] Hltkomfmga9175 [place] [phone]. Elba Raj EGFR-AF TUVALUAN 36 mL/min/1.73m2 Critically low >=60 [facility] Comment on above: Performed By: #### B MP ####[facility] Algvtvsofb2163 [place] [id number]. Elba Raj EGFR-NON AF TUVALUAN 30 mL/min/1.73m2 Critically low >=60 [facility] Comment on above: Performed By: #### B MP ####[facility] Oopyhwsqjb9243 [place] [address]Dr. Elba Anthony Glucose [Mass/Vol] 99 mg/dL Normal 74-106 [facility] Comment on above: Performed By: #### B MP ####[facility] Owhsblaysd4132 [place] [id number]. Nereydasiobhan Raj Potassium [Moles/Vol] 3.9 mmol/L Normal 3.5-5.1 [facility] Comment on above: Performed By: #### B MP ####[facility] Sdirnviuvn2860 [place] [address]Dr. Elba Anthony Sodium [Moles/Vol] 141 mmol/L Normal 136-145 [facility] Comment on above: Performed By: #### B MP ####[facility] Dlqqcjlvio3472 [place] [id number]. Elba Anthony Urea nitrogen [Mass/Vol] 40.0 mg/dL Critically high 7.0-18.0 [facility] Comment on above: Performed By: #### B MP ####[facility] Eschwaljyj9005 [place] [phone]. Elba Anthony Urea nitrogen/Creatinine [Mass ratio] 18.3 mg/mg Normal [facility] Comment on above: Performed By: #### B MP ####[facility] Salvdblocr7582 [place] [address]Dr. Elba Anthony XR CHEST 2 Von 07-11-2022 XR CHEST 2 V Normal [facility] BNPon 07-10-2022 Natriuretic peptide B (Bld) [Mass/Vol] 2542.0 pg/mL Critically high <=900.0 [facility] Comment on above: Performed By: #### H STROPN, BNP, CMP ####[facility] Unfibctzuq3494 [place] [phone]. Elba Anthony CARDIAC FADY 3-6on 2 CK [Catalytic activity/Vol] 40 U/L Normal 39-308 [facility] Comment on above: Performed By: #### C MREP ####[facility] Fesevebnyi[address] [place], [place] [address]Dr. Elba Anthony CK.MB [Mass/Vol] 0.92 ng/mL Normal <=3.60 [facility] Comment on above: Performed By: #### C MREP ####[facility] Bkvlxopntl[address] [place], [place] [address]Dr. Elba Anthony HSTROP 49.6 pg/mL Normal 4.0-76.1 [facility] Comment on above: Result Comment: CUT- OFF POINTS HAVE BEEN ESTABLISHED BASED ON THE FOURTH UNIVERSAL DEFINITIONS OF MYOCARDIALINFARCTION. THE UPPER REFERENCE LIMIT (URL) OF TROPONIN, DEFINED THE 99TH PERCENTILE OFcTnI DISTRIBUTION IN A REFERENCE POPULATION, HAS BEEN CONFIRMED THE DECISION THRESHOLDFOR [place] DIAGNOSIS. Performed By: #### C MREP ####[facility] Uzwrrmsefw0793 [place] [address]Dr. Elba Anthony CK [Catalytic activity/Vol] 39 U/L Normal 39-308 [facility] Comment on above: Performed By: #### C MREP ####[facility] Lttedugnjf9609 [place] [id number]. Elba Anthony CK.MB [Mass/Vol] 0.76 ng/mL Normal <=3.60 [facility] Comment on above: Performed By: #### C MREP ####[facility] Fbhgirksig1922 [place] [phone]. Elba Anthony HSTROP 47.3 pg/mL Normal 4.0-76.1 [facility] Comment on above: Result Comment: CUT- OFF POINTS HAVE BEEN ESTABLISHED BASED ON THE FOURTH UNIVERSAL DEFINITIONS OF MYOCARDIALINFARCTION. THE UPPER REFERENCE LIMIT (URL) OF TROPONIN, DEFINED THE 99TH PERCENTILE OFcTnI DISTRIBUTION IN A REFERENCE POPULATION, HAS BEEN CONFIRMED THE DECISION THRESHOLDFOR [place] DIAGNOSIS. Performed By: #### C MREP ####[facility] [address]wblfsis[address] [place], [place] [address]Dr. Elba Raj CBC AUTO DIFFon 07-10-2022 BASO # 0.1 103/ul Normal 0.0-0.1 [facility] Comment on above: Performed By: #### C BC ####[facility] Eklvcwkfvn[address] [place], [place] [address]Dr. Elba Anthony Basophils/100 WBC (Bld) 1.1 % Normal 0.2-2.0 [facility] Comment on above: Performed By: #### C BC ####[facility] Zscjhapsxi8[address] [place], [place] [address]Dr. Nereydasiobhan Anthony EO # 0.6 103/ul Normal 0.0-0.7 [facility] Comment on above: Performed By: #### C BC ####[facility] Uavympwujh[address] [place], [place] [address]Dr. Elba Anthony Eosinophils/100 WBC (Bld) 8.9 % Critically high 0.9-7.0 [facility] Comment on above: Performed By: #### C BC ####[facility] Nmexjbjcjb220[address] [place], [place] [address]Dr. Elba Anthony Erythrocyte distribution width (RBC) [Ratio] 21.1 % Critically high 11.0-15.0 [facility] Comment on above: Performed By: #### C BC ####[facility] Ecscattwot[address] [place], [place] [address]Dr. Elba Anthony Hematocrit (Bld) [Volume fraction] 39.1 % Critically low 42.0-54.0 [facility] Comment on above: Performed By: #### C BC ####[facility] Riqpkpbpae8258 [place] [address]Dr. Elba Anthony Hemoglobin (Bld) [Mass/Vol] 12.6 g/dL Critically low 14.0-18.0 [facility] Comment on above: Performed By: #### C BC ####[facility] Hbzivcztzo9[address] [place] [address]Dr. Elba Anthony IG # 0.04 10e3/ul Critically high 0.00-0.03 [facility] Comment on above: Performed By: #### C BC ####[facility] Trqihjoede[address] [place] [address]Dr. Elba Anthony IG % 0.6 % Critically high 0.0-0.5 [facility] Comment on above: Performed By: #### C BC ####[facility] [address]wsdml[address]unm[address] [place], [place] [address]Dr. Elba Anthony LYMPH # 0.9 103/ul Critically low 1.2-3.8 [facility] Comment on above: Performed By: #### C BC ####[facility] [address]qw[address] [place], [place] [address]Dr. Elba Anthony Lymphocytes/100 WBC (Bld) 13.8 % Critically low 20.5-60.0 [facility] Comment on above: Performed By: #### C BC ####[facility] Watmcjbobz[address] [place], [place] [address]Dr. Elba Anthony MANUAL DIFF REQ NO Normal [facility] Comment on above: Performed By: #### C BC ####[facility] Hararjxudi[address] [place], [place] [address]Dr. Elba Anthony MCH (RBC) [Entitic mass] 27.5 pg Normal 25.9-34.0 [facility] Comment on above: Performed By: #### C BC ####[facility] Ogibpudowh[address] [place], [place] [address]Dr. Elba Anthony MCHC (RBC) [Mass/Vol] 32.2 g/dL Normal 29.9-35.2 [facility] Comment on above: Performed By: #### C BC ####[facility] Agalqgjxae65[address] [place] [id number]. Elba Anthony MCV (RBC) [Entitic vol] 85.2 fL Normal 80.0-94.0 [facility] Comment on above: Performed By: #### C BC ####[facility] Lotmvadnpf3652 [place] [id number]. Elba Anthony MONO # 0.9 103/ul Critically high 0.3-0.8 [facility] Comment on above: Performed By: #### C BC ####[facility] Dznqjdcvzr5164 [place] [address]Dr. Elba Anthony Monocytes/100 WBC (Bld) 14.0 % Critically high 1.7-12.0 [facility] Comment on above: Performed By: #### C BC ####[facility] Mpwenideqy[address] [place], [place] [address]Dr. Elba Anthony NEUT # 4.1 103/ul Normal 1.4-6.5 [facility] Comment on above: Performed By: #### C BC ####[facility] Immzxtoirl[address] [place], [place] [address]Dr. Elba Anthony Neutrophils/100 WBC (Bld) 61.6 % Normal 43.0-75.0 [facility] Comment on above: Performed By: #### C BC ####[facility] [address]jxdqrzksq[address] [place], [place] [address]Dr. Elba Anthony Platelet mean volume (Bld) [Entitic vol] 10.1 fL Normal 9.5-13.5 [facility] Comment on above: Performed By: #### C BC ####[facility] [address] [place], [place] [id number]. Elba Anthony PLT 223 103/ul Normal 150-450 [facility] Comment on above: Performed By: #### C BC ####[facility] Burzmnflsc[address] [place] [id number]. Elba Raj RBC 4.59 106/ul Critically low 4.70-6.10 [facility] Comment on above: Performed By: #### C BC ####[facility] [address]viatlmdiw[address] [place] [address]Dr. Elba Anthony WBC 6.7 103/ul Normal 4.0-11.0 [facility] Comment on above: Performed By: #### C BC ####[facility] Ioounhayos[address] [place] [id number]. Elba Anthony Covid-19 PCR ([facility]on SARS-CoV-2 (COVID-19) RNA ELIZABETH+probe Ql (Unsp spec) Not detected Normal NOT DETECTED [facility] Comment on above: Result Comment: When [...] for this test is supported by the Crew Foreman of Health and Human Service's declaration that [...] be used). Performed By: #### C VDTBH ####[facility] Ywbhhxoqbj[address] [place], [place] [address]Dr. Elba Anthony ER URINE PROFILEon 2 Bilirubin Ql (U) Negative Normal NEGATIVE [facility] Comment on above: Performed By: #### E RUR ####[facility] Hxkoibcskz[address] [place], [place] [address]Dr. Elba Raj Clarity (U) CLEAR Normal CLEAR [facility] Comment on above: Performed By: #### E RUR ####[facility] Hhgckbgqny[address] [place], [place] [address]Dr. Yilan Anthony Color (U) LT. YELLOW Normal YELLOW [facility] Comment on above: Performed By: #### E RUR ####[facility] Gcrvckdaee[address] [place], [place] [address]Dr. Elba COTTON A micrscopic examina tion will be performed if indicated. Normal [facility] Comment on above: Performed By: #### E RUR ####[facility] Mpewslzrth238[address] [place], [place] [address]Dr. Elba Anthony Glucose Ql (U) Negative Normal NEGATIVE [facility] Comment on above: Performed By: #### E RUR ####[facility] Ozqjattmow[address] [place], [place] [address]Dr. Elba Anthony Hemoglobin Ql (U) Negative Normal NEGATIVE [facility] Comment on above: Performed By: #### E RUR ####[facility] Dsekuxwxdq[address] [place], [place] [address]Dr. Elba Anthony Ketones Ql (U) Negative Normal NEGATIVE [facility] Comment on above: Performed By: #### E RUR ####[facility] Aareipjkyg[address] [place], [place] [address]Dr. Elba Anthony LEUKOCYTES Negative Normal NEGATIVE [facility] Comment on above: Performed By: #### E RUR ####[facility] Gricdnigxs7[address] [place], [place] [address]Dr. Elba Anthony Nitrite Ql (U) Negative Normal NEGATIVE [facility] Comment on above: Performed By: #### E RUR ####[facility] Nykvzwsgdc[address] [place], [place] [address]Dr. Elba Anthony pH (U) 7.0 [pH] Normal 5-9 [facility] Comment on above: Performed By: #### E RUR ####[facility] Afmbbvjtqy[address] [place], [place] [address]Dr. Elba Anthony SPEC GRAVITY 1.010 Normal 1.005-<=1.02 5 [facility] Comment on above: Performed By: #### E RUR ####[facility] Ubelzyigya[address] [place], [place] [address]Dr. Elba Anthony UA PROTEIN Negative Normal NEGATIVE/ TRACE [facility] Comment on above: Performed By: #### E RUR ####[facility] Qyuiwfzkge[address] [place] [address]Dr. Elba Anthony UR MICRO IND NOT INDICATED Normal [facility] Comment on above: Performed By: #### E RUR ####[facility] Sqdvrcsmoq[address] [place] [address]Dr. Elba Anthony Urobilinogen Qn (U) 0.2 {Caden'U}/dL Normal 0.2 - 1. 0 [facility] Comment on above: Performed By: #### E RUR ####[facility] Zirnkaqvbm[address] [place] [address]Dr. Elba Anthony PROF 14(COMP METB)on 022 Albumin [Mass/Vol] 3.3 g/dL Critically low 3.4-5.0 [facility] Comment on above: Performed By: #### H STROPN, BNP, CMP ####[facility] Yewelzsrdq[address] [place] [address]Dr. Elba Anthony Albumin/Globulin [Mass ratio] 0.8 {ratio} Normal [facility] Comment on above: Performed By: #### H STROPN, BNP, CMP ####[facility] [address]jgkbej[address] [place], [place] [address]Dr. Elba Anthony ALP [Catalytic activity/Vol] 114 U/L Normal 46-116 [facility] Comment on above: Performed By: #### H STROPN, BNP, CMP ####[facility] Xtlclixhsu7[address] [place] [address]Dr. Elba Anthony ALT [Catalytic activity/Vol] 23 U/L Normal 16-63 [facility] Comment on above: Performed By: #### H STROPN, BNP, CMP ####[facility] Eequbmlode24[address] [place] [address]Dr. Elba Anthony Anion gap [Moles/Vol] 9.5 mmol/L Normal [facility] Comment on above: Performed By: #### H STROPN, BNP, CMP ####[facility] Wfszpjdtjm4082 [place] [address]Dr. Elba Anthony AST [Catalytic activity/Vol] 32 U/L Normal 15-37 [facility] Comment on above: Performed By: #### H STROPN, BNP, CMP ####[facility] Dypofxofnw7[address] [place] [address]Dr. Elba Anthony Bilirubin [Mass/Vol] 0.7 mg/dL Normal 0.2-1.0 [facility] Comment on above: Performed By: #### H STROPN, BNP, CMP ####[facility] Veluwazsij[address] [place] [address]Dr. Elba Anthony Calcium [Mass/Vol] 9.1 mg/dL Normal 8.5-10.1 [facility] Comment on above: Performed By: #### H STROPN, BNP, CMP ####[facility] Mmtlgfeeew[address] [place], [place] [address]Dr. Elba Anthony Chloride [Moles/Vol] 99 mmol/L Normal 98-107 [facility] Comment on above: Performed By: #### H STROPN, BNP, CMP ####[facility] Zagbnitcbj[address] [place] [address]Dr. Elba Anthony CO2 [Moles/Vol] 33.2 mmol/L Critically high 21.0-32.0 [facility] Comment on above: Performed By: #### H STROPN, BNP, CMP ####[facility] [address]jtrpeupm[address] [place], [place] [address]Dr. Elba Anthony Creatinine [Mass/Vol] 2.31 mg/dL Critically high 0.70-1.30 [facility] Comment on above: Performed By: #### H STROPN, BNP, CMP ####[facility] R[address]fmxkordu[address] [place], [place] [address]Dr. Elba Anthony EGFR-AF TUVALUAN 34 mL/min/1.73m2 Critically low >=60 [facility] Comment on above: Performed By: #### H STROPN, BNP, CMP ####[facility] Emulxksqea[address] [place], [place] [address]Dr. Elba Anthony EGFR-NON AF TUVALUAN 28 mL/min/1.73m2 Critically low >=60 [facility] Comment on above: Performed By: #### H STROPN, BNP, CMP ####[facility] Gioprbntea[address] [place] [address]Dr. Elba Anthony Globulin (S) [Mass/Vol] 4.3 g/dL Normal [facility] Comment on above: Performed By: #### H STROPN, BNP, CMP ####[facility] Uoztkelohp[address] [place] [address]Dr. Elba Anthony Glucose [Mass/Vol] 98 mg/dL Normal 74-106 [facility] Comment on above: Performed By: #### H STROPN, BNP, CMP ####[facility] Wghqnqjaaz[address] [place], [place] [address]Dr. Elba Anthony Potassium [Moles/Vol] 4.7 mmol/L Normal 3.5-5.1 [facility] Comment on above: Performed By: #### H STROPN, BNP, CMP ####[facility] Rhkgwsngmx[address] [place], [place] [address]Dr. Elba Anthony Protein [Mass/Vol] 7.6 g/dL Normal 6.4-8.2 [facility] Comment on above: Performed By: #### H STROPN, BNP, CMP ####[facility] Devnkhrfxr7[address] [place], [place] [address]Dr. Elba Anthony Sodium [Moles/Vol] 137 mmol/L Normal 136-145 [facility] Comment on above: Performed By: #### H STROPN, BNP, CMP ####[facility] Ttdwfwritc[address] [place], [place] [address]Dr. Elba Anthony Urea nitrogen [Mass/Vol] 47.0 mg/dL Critically high 7.0-18.0 [facility] Comment on above: Performed By: #### H STROPN, BNP, CMP ####[facility] Tftdaeazud[address] [place], [place] [address]Dr. Elba Anthony Urea nitrogen/Creatinine [Mass ratio] 20.3 mg/mg Normal [facility] Comment on above: Performed By: #### H STROPN, BNP, CMP ####[facility] Evdwkbgyjd[address] [place] [phone]. Elba Anthony PROTIMEon 07-10-2022 INR Coag (PPP) [Relative time] 1.07 {INR} Normal [facility] Comment on above: Performed By: #### P T, PTT ####[facility] Q[address]ms[address]scfff[address] [place] [address]Dr. Elba Anthony INR GUIDELINES SEE BELOW Normal [facility] Comment on above: Result Comment: FUAD RED INR: 2.0 - 3.0 CONDITIONS NOT LISTED BELOW 2.5 - 3.5 FOR PROSTHETIC HEART VALVE REPLACEMENT 2.5 - 3.5 RECURRENT THROMBOSIS Performed By: #### P T, PTT ####[facility] X[address]uke[address]qldv[address] [place] [address]Dr. Elba Anthony PT Coag (PPP) [Time] 11.5 s Normal 9.0-11.6 [facility] Comment on above: Performed By: #### P T, PTT ####[facility] H[address]exloceq[address] [place] [address]Dr. Elba Anthony PTTon 07-10-2022 aPTT Coag (Bld) [Time] 34.7 s Normal 22.3-36.2 [facility] Comment on above: Performed By: #### P T, PTT ####[facility] Uwjrzsqlku[address] [place] [address]Dr. Elba Anthony TROPONIN, HIGH SENSITIVITYon 07-10-2022 HSTROP 45.2 pg/mL Normal 4.0-76.1 [facility] Comment on above: Result Comment: CUT- OFF POINTS HAVE BEEN ESTABLISHED BASED ON THE FOURTH UNIVERSAL DEFINITIONS OF MYOCARDIALINFARCTION. THE UPPER REFERENCE LIMIT (URL) OF TROPONIN, DEFINED THE 99TH PERCENTILE OFcTnI DISTRIBUTION IN A REFERENCE POPULATION, HAS BEEN CONFIRMED THE DECISION THRESHOLDFOR [place] DIAGNOSIS. Performed By: #### H STROPN, BNP, CMP ####[facility] Azzatzbovi[address] [place] [address]Dr. Elba Anthony XR CHEST 1 Von 07-10-2022 XR CHEST 1 V Normal [facility] US venous duplex LE BIon US venous duplex LE BI [facility] [place] [address] Ultrasound Report Signed Patient: Man Patel MR#: [id number] : 1950 Acct:[id number] Age/Sex: 72 / M ADM Date: 06/27/22 Loc: ER Room: Type: [facility] ER Attending Dr: Ordering Provider: [...] Balwinder Watson MD06/28/2022 8:49 AM Dictation Location: [place] [address] Tech: Mayra Henry Transcribed By: [facility] 06/28/22848 Dictated By: Balwinder Watson MD 06/28/22848 Signed By: 06/28/22848 Normal [facility] Activated partial thrombopla stin time (aPTT) in platelet poor plasma by coagulation aOrdered By: Melva Owusu on 06-27-2022 aPTT Coag (PPP) [Time] 36.4 s 25.1-36.5 [facility] Albumin [Mass/volume] in Ser um or PlasmaOrdered By: Melva Owusu on 06-27-2022 Albumin [Mass/Vol] 3.1 g/dL 3.2-5.5 [facility] B-Type Natriuretic Peptideon 06-27-2022 Natriuretic peptide B (Bld) [Mass/Vol] 367.0 pg/mL High 5-100 [facility] Comment on above: Result Comment: PERF ORMED BY: [place] [address] [address] GARCIA M.D. Performed By: #### S OFALDOEG, COVID-19 JOSE #### [address] Basophils Auto (Bld) [#/Vol] Ordered By: Melva Owusu on 06-27-2022 Basophils (Bld) [#/Vol] 0.0 10*3/uL 0.0-0.2 [facility] Basophils/100 WBC Auto (Bld) Ordered By: [facility] on 06-27-2022 Basophils/100 WBC (Bld) 0.6 % . [facility] Bilirubin Test strip Ql (U)O rdered By: Melva [facility] on 06-27-2022 Bilirubin Ql (U) Negative Negative [facility] Blood Cultureon 06-27-2022 Bacteria identified Cx Nom (Bld) NO GROWTH 5 DAYS PERFORMED BY: [place] [address] [address] GARCIA M.D. [facility] Comment on above: Performed By: #### C UBLD, LACTIC #### [address] Bacteria identified Cx Nom (Bld) NO GROWTH 5 DAYS PERFORMED BY: [place] [address] [address] COR[address] OFF[address] GARCIA M.D. [facility] Comment on above: Performed By: #### C UBLD, LACTIC #### [facility] [address] [place] [address] COVID-19 Antigenon 2 COVID-19 Antigen Healthcare Worker?: [...] developed and its performance characteristic determined by [employer] and validated at [facility]. This test has not been FDA cleared [...] for SARS Antigen by MORIAH PERFORMED BY: [place] [address] [address] COR[address]CTIONAL OFFIC[address] GARCIA M.D. Normal [facility] Comment on above: Performed By: #### S JORGE, COVID-19 JOSE #### [address] COVID-19 SOFIAOrdered By: Fito Chavarria on 06-27-2022 SARS-CoV+SARS-CoV-2 (COVID-19) Ag IA.rapid Ql (Resp) Negative Negative [facility] Comment on above: This is a duplicate Jose SARS Antigen (MORIAH) result to be used for statistical tracking purpose only. Coagulation Profileon 2021 aPTT Coag (Bld) [Time] 36.4 s Normal 25.1-36.5 [facility] Comment on above: Result Comment: PERF ORMED BY: [facility] [address] [place] [address] [address] COR[address]AL OFFICER [address] GARCIA M.D. Performed By: #### S YESSYCATALINA COVID-19 JOSE #### [address] INR Coag (PPP) [Relative time] 1.5 {INR} Normal [facility] Comment on above: Result Comment: INR Therapeutic [...] 3 - 4.5 Performed By: #### S JORGE COVID-19 JOSE #### [place] [address] [place] PT Coag (PPP) [Time] 17.3 s High 9.0-12.9 [facility] Comment on above: Performed By: #### S JORGE COVID-19 JOSE #### [address] Color Auto (U)Ordered By: Lisa Owusu on 06-27-2022 Color (U) Yellow Yellow [facility] Complete Blood Count Auto Di ffon 06-27-2022 Basophils (Bld) [#/Vol] 0.0 10*3/uL Normal 0.0-0.2 [facility] Comment on above: Result Comment: PERF ORMED BY: [place] [address] [address] GARCIA M.D. Performed By: #### B HAND BOX FOLDER, CBC, PP, CMP #### [place] [address] [place] Basophils/100 WBC (Bld) 0.6 % Normal . [facility] Comment on above: Performed By: #### B HAND BOX FOLDER, CBC, PP, CMP #### [facility] [address] Eosinophils (Bld) [#/Vol] 0.6 10*3/uL High 0.0-0.45 [facility] Comment on above: Performed By: #### B HAND BOX FOLDER, CBC, PP, CMP #### [address] Eosinophils/100 WBC (Bld) 9.4 % Normal . [facility] Comment on above: Performed By: #### B HAND BOX FOLDER, CBC, PP, CMP #### [address] Erythrocyte distribution width (RBC) [Ratio] 24.6 % High 12.0-14.8 [facility] Comment on above: Performed By: #### B HAND BOX FOLDER, CBC, PP, CMP #### [address] Hematocrit (Bld) [Volume fraction] 39.7 % Normal 38.8-50.0 [facility] Comment on above: Performed By: #### B HAND BOX FOLDER, CBC, PP, CMP #### [address] Hemoglobin (Bld) [Mass/Vol] 12.9 g/dL Low 13.0-17.0 [facility] Comment on above: Performed By: #### B HAND BOX FOLDER, CBC, PP, CMP #### [address] Lymphocytes (Bld) [#/Vol] 0.6 10*3/uL Low 1.00-4.8 [facility] Comment on above: Performed By: #### B HAND BOX FOLDER, CBC, PP, CMP #### [address] Lymphocytes/100 WBC (Bld) 9.3 % Normal . [facility] Comment on above: Performed By: #### B HAND BOX FOLDER, CBC, PP, CMP #### [address] MCH (RBC) [Entitic mass] 26.8 pg Low 27.5-35.2 [facility] Comment on above: Performed By: #### B HAND BOX FOLDER, CBC, PP, CMP #### [address] MCV (RBC) [Entitic vol] 82.7 fL Low 83.5-101 [facility] Comment on above: Performed By: #### B HAND BOX FOLDER, CBC, PP, CMP #### [address] Mean Corpuscular HGB Conc 32.4 g/dL Low 32.5-35.6 [facility] Comment on above: Performed By: #### B HAND BOX FOLDER, CBC, PP, CMP #### [address] Monocytes (Bld) [#/Vol] 0.6 10*3/uL Normal 0.0-0.8 [facility] Comment on above: Performed By: #### B HAND BOX FOLDER, CBC, PP, CMP #### [address] Monocytes/100 WBC (Bld) 9.4 % Normal . [facility] Comment on above: Performed By: #### B HAND BOX FOLDER, CBC, PP, CMP #### [address] Neutrophils (Bld) [#/Vol] 4.7 10*3/uL Normal 1.8-7.7 [facility] Comment on above: Performed By: #### B HAND BOX FOLDER, CBC, PP, CMP #### [address] Neutrophils/100 WBC (Bld) 71.3 % Normal . [facility] Comment on above: Performed By: #### B HAND BOX FOLDER, CBC, PP, CMP #### [address] Nucleated RBC/100 WBC (Bld) [Ratio] 0.0 % Normal 0-0.5 [facility] Comment on above: Performed By: #### B HAND BOX FOLDER, CBC, PP, CMP #### [address] Platelet mean volume (Bld) [Entitic vol] 8.0 fL Normal 6.6-10.1 [facility] Comment on above: Performed By: #### B HAND BOX FOLDER, CBC, PP, CMP #### [address] Platelets (Bld) [#/Vol] 163 10*3/uL Normal 150-450 [facility] Comment on above: Performed By: #### B HAND BOX FOLDER, CBC, PP, CMP #### [address] RBC (Bld) [#/Vol] 4.80 10*6/uL Normal 3.90-5.60 [facility] Comment on above: Performed By: #### B HAND BOX FOLDER, CBC, PP, CMP #### [address] WBC (Bld) [#/Vol] 6.5 10*3/uL Normal 4.5-11.0 [facility] Comment on above: Performed By: #### B HAND BOX FOLDER, CBC, PP, CMP #### [address] Comprehensive Metabolic Pane jeff 06-27-2022 Albumin [Mass/Vol] 3.1 g/dL Low 3.2-5.5 [facility] Comment on above: Performed By: #### B HAND BOX FOLDER, CBC, PP, CMP #### [address] Albumin/Globulin [Mass ratio] 0.8 {ratio} Normal [facility] Comment on above: Performed By: #### B HAND BOX FOLDER, CBC, PP, CMP #### [address] ALP [Catalytic activity/Vol] 98 U/L High 32- [facility] Comment on above: Performed By: #### B HAND BOX FOLDER, CBC, PP, CMP #### [address] ALT [Catalytic activity/Vol] 28 U/L Normal 10-60 [facility] Comment on above: Performed By: #### B HAND BOX FOLDER, CBC, PP, CMP #### [facility] [address] Anion gap [Moles/Vol] 15.0 mmol/L Normal 6.0-15.0 [facility] Comment on above: Performed By: #### B HAND BOX FOLDER, CBC, PP, CMP #### [facility] [address] AST [Catalytic activity/Vol] 32 U/L Normal 10-42 [facility] Comment on above: Performed By: #### B HAND BOX FOLDER, CBC, PP, CMP #### [facility] [address] Bilirubin [Mass/Vol] 0.9 mg/dL Normal 0.3-1.2 [facility] Comment on above: Performed By: #### B HAND BOX FOLDER, CBC, PP, CMP #### [facility] [address] Calcium [Mass/Vol] 9.4 mg/dL Normal 8.2-10.2 [facility] Comment on above: Performed By: #### B HAND BOX FOLDER, CBC, PP, CMP #### [facility] [address] Chloride [Moles/Vol] 96 mmol/L Normal 95-114 [facility] Comment on above: Performed By: #### B HAND BOX FOLDER, CBC, PP, CMP #### [facility] [address] CO2 [Moles/Vol] 28.8 mmol/L Normal 22.0-30.[address] [facility] Comment on above: Performed By: #### B HAND BOX FOLDER, CBC, PP, CMP #### [facility] [address] [place] [address] [place] Creatinine [Mass/Vol] 2.48 mg/dL High 0.64-1.27 [facility] Comment on above: Performed By: #### B HAND BOX FOLDER, CBC, PP, CMP #### [facility] [address] [place] [address] [place] Creatinine Clr Calc Pharmacy 33.36 Normal [facility] Comment on above: Result Comment: PERF ORMED BY: [place] [address] [address] CORRE[address] OFF[address] GARCIA M.D. Performed By: #### B HAND BOX FOLDER, CBC, PP, CMP #### [address] Estimated GFR ( Andra 31 [facility] Comment on above: Result Comment: GFR estimated reference range: According to KDOQI guidelines, <60 ml/min/1.73m2 is sufficient to diagnose a patient with chronic kidney disease. Performed By: #### B HAND BOX FOLDER, CBC, PP, CMP #### [address] Estimated GFR (Non- Am 26 [facility] Comment on above: Performed By: #### B HAND BOX FOLDER, CBC, PP, CMP #### [address] Globulin (S) [Mass/Vol] 4.1 g/dL [facility] Comment on above: Performed By: #### B HAND BOX FOLDER, CBC, PP, CMP #### [address] Glucose [Mass/Vol] 128 mg/dL High 70-100 [facility] Comment on above: Result Comment: [place] Glucose Reference Range is dependent on time and content of last meal. Glucose of more than 200 mg/dL in a nonstressed, ambulatory subject supports the diagnosis of Diabetes Mellitus. ADA recommended reference range Performed By: #### B HAND BOX FOLDER, CBC, PP, CMP #### [address] Potassium [Moles/Vol] 3.8 mmol/L Normal 3.5-5.1 [facility] Comment on above: Performed By: #### B HAND BOX FOLDER, CBC, PP, CMP #### [address] Protein [Mass/Vol] 7.2 g/dL Normal 6.1-7.9 [facility] Comment on above: Performed By: #### B HAND BOX FOLDER, CBC, PP, CMP #### [facility] [address] [place] [address] [place] Sodium [Moles/Vol] 136 mmol/L Normal 136-146 [facility] Comment on above: Performed By: #### B HAND BOX FOLDER, CBC, PP, CMP #### [facility] [address] [place] [id number] [place] Urea nitrogen [Mass/Vol] 40 mg/dL High 9- [facility] Comment on above: Performed By: #### B HAND BOX FOLDER, CBC, PP, CMP #### [facility] [address] [place] [address] [place] Creatinine and Glomerular fi ltration rate.predicted panel (S/P/Bld)Ordered By: Melva Owusu on 06-27-2022 Creatinine [Mass/Vol] 2.48 mg/dL 0.64-1.27 [facility] Eosinophils Auto (Bld) [#/Vo l]Ordered By: Melva Owusu on 06-27-2022 Eosinophils (Bld) [#/Vol] 0.6 10*3/uL 0.0-0.45 [facility] Eosinophils/100 WBC Auto (Bl d)Ordered By: Melva Owusu on 06-27-2022 Eosinophils/100 WBC (Bld) 9.4 % . [facility] Erythrocyte distribution wid th Auto (RBC) [Ratio]Ordered By: Melva Owusu on 06-27-2022 Erythrocyte distribution width (RBC) [Ratio] 24.6 % 12.0-14.8 [facility] Estimated glomerular filtrat ion rate (GFR) non- AmericanOrdered By: Melva Owusu on 06-27-2022 GFR/1.73 sq M.predicted among non-blacks MDRD (S/P/Bld) [Vol rate/Area] 26 mL/Min [facility] Globulin Calc (S) [Mass/Vol] Ordered By: Melva Owusu on 06-27-2022 Globulin (S) [Mass/Vol] 4.1 g/dL [facility] Hematocrit Auto (Bld) [Volum e fraction]Ordered By: Melva Owusu on 06-27-2022 Hematocrit (Bld) [Volume fraction] 39.7 % 38.8-50.0 [facility] Hemoglobin [Mass/volume] in BloodOrdered By: Melva Owusu on 06-27-2022 Hemoglobin (Bld) [Mass/Vol] 12.9 g/dL 13.0-17.0 [facility] Ketones Auto test strip (U) [Mass/Vol]Ordered By: Melva Owusu on 06-27-2022 Ketones (U) [Mass/Vol] Negative Negative [facility] Laboratory - Chemistry and C hemistry - challengeOrdered By: Melva Owusu on 06-27-2022 Natriuretic peptide B (Bld) [Mass/Vol] 367.0 pg/mL 5-100 [facility] Laboratory - CoagulationOrde red By: Melva Owusu on 06-27-2022 PT Coag (PPP) [Time] 17.3 s 9.0-12.9 [facility] Laboratory - Hematology and Cell countsOrdered By: Melva Owusu on 06-27-2022 Nucleated RBC/100 WBC (Bld) [Ratio] 0.0 % 0-0.5 [facility] Lactic Acidon 06-27-2022 Lactate [Moles/Vol] 1.7 mmol/L Normal 0.5-2.2 [facility] Comment on above: Result Comment: PERF ORMED BY: [place] [address] [address] COR[address] OFF[employer] GARCIA M.D. Performed By: #### C UBLD, LACTIC #### [address] Leukocytes [#/volume] in Blo od by Automated countOrdered By: Melva Owusu on 06-27-2022 WBC (Bld) [#/Vol] 6.5 10*3/uL 4.5-11.0 [facility] Lymphocytes Auto (Bld) [#/Vo l]Ordered By: Melva Owusu on 06-27-2022 Lymphocytes (Bld) [#/Vol] 0.6 10*3/uL 1.00-4.8 [facility] Lymphocytes/100 WBC Auto (Bl d)Ordered By: Melva Owusu on 06-27-2022 Lymphocytes/100 WBC (Bld) 9.3 % . [facility] MCH Auto (RBC) [Entitic mass ]Ordered By: Melva Owusu on 06-27-2022 MCH (RBC) [Entitic mass] 26.8 pg 27.5-35.2 [facility] MCHC Auto (RBC) [Mass/Vol]Or dered By: Melva Owusu on 06-27-2022 MCHC (RBC) [Mass/Vol] 32.4 g/dL 32.5-35.6 [facility] MCV Auto (RBC) [Entitic vol] Ordered By: Melva Owusu on 06-27-2022 MCV (RBC) [Entitic vol] 82.7 fL 83.5-101 [facility] Monocytes Auto (Bld) [#/Vol] Ordered By: Melva Owusu on 06-27-2022 Monocytes (Bld) [#/Vol] 0.6 10*3/uL 0.0-0.8 [facility] Monocytes/100 WBC Auto (Bld) Ordered By: Melva Owusu on 06-27-2022 Monocytes/100 WBC (Bld) 9.4 % . [facility] Neutrophils Auto (Bld) [#/Vo l]Ordered By: Melva Owusu on 06-27-2022 Neutrophils (Bld) [#/Vol] 4.7 10*3/uL 1.8-7.7 [facility] Neutrophils/100 WBC Auto (Bl d)Ordered By: Melva Owusu on 06-27-2022 Neutrophils/100 WBC (Bld) 71.3 % . [facility] Nitrite Test strip Ql (U)Ord ered By: Melva Owusu on 06-27-2022 Nitrite Ql (U) Negative Negative [facility] No Panel InformationOrdered By: Melva Owusu on 06-27-2022 Estimated GFR () 31 mL/Min [facility] Comment on above: GFR estimated refere nce range: According to KDOQI guidelines, <60 ml/min/1.73m2 is sufficient to diagnose a patient with chronic kidney disease. Pharmacy Creatinine Clearance (Chem 33.36 [facility] No Panel InformationOrdered By: Balwinder Chavarria on 06-27-2022 SARS Antigen (LFIA) [facility] Platelet mean volume Auto (B ld) [Entitic vol]Ordered By: Melva Owusu on 06-27-2022 Platelet mean volume (Bld) [Entitic vol] 8.0 fL 6.6-10.1 [facility] Platelet poor plasma interna tional normalized ratio (INR) by coagulation assay (relatOrdered By: Melva Owusu on 06-27-2022 INR Coag (PPP) [Relative time] 1.5 {INR} [facility] Comment on above: INR Therapeutic Rang e [...] 10*3/uL 150-450 [facility] Protein Auto test strip (U) [Mass/Vol]Ordered By: Melva Owusu on 06-27-2022 Protein (U) [Mass/Vol] Negative Negative [facility] Protein [Mass/volume] in Ser um or PlasmaOrdered By: Melva Owusu on 06-27-2022 Protein [Mass/Vol] 7.2 g/dL 6.1-7.9 [facility] RBC Auto (Bld) [#/Vol]Ordere d By: Melva Owusu on 06-27-2022 RBC (Bld) [#/Vol] 4.80 10*6/uL 3.90-5.60 [facility] Serum or plasma alanine [place] otransferase measurement without P-5'-P (enzymatic activiOrdered By: Melva Owusu on 06-27-2022 ALT No additional P-5'-P [Catalytic activity/Vol] 28 U/L 10-60 [facility] Serum or plasma albumin/glob ulin mass ratioOrdered By: Melva Owusu on 06-27-2022 Albumin/Globulin [Mass ratio] 0.8 {ratio} [facility] Serum or plasma alkaline mumtaz sphatase measurement (enzymatic activity/volume)Ordered By: Melva Owusu on 06-27-2022 ALP [Catalytic activity/Vol] 98 U/L 32-92 [facility] Serum or plasma anion gap de terminationOrdered By: Melva Owusu on 06-27-2022 Anion gap [Moles/Vol] 15.0 mmol/L 6.0-15.0 [facility] Serum or plasma aspartate am inotransferase measurement (enzymatic activity/volume)Ordered By: Melva Owusu on 06-27-2022 AST [Catalytic activity/Vol] 32 U/L 10-42 [facility] Serum or plasma calcium brii urement (mass/volume)Ordered By: Melva Owusu on 06-27-2022 Calcium [Mass/Vol] 9.4 mg/dL 8.2-10.2 [facility] Serum or plasma chloride edgar surement (moles/volume)Ordered By: Melva Owusu on 06-27-2022 Chloride [Moles/Vol] 96 mmol/L 95-114 [facility] Serum or plasma glucose brii urement (mass/volume)Ordered By: Melva Owusu on 06-27-2022 Glucose [Mass/Vol] 128 mg/dL 70-100 [facility] Comment on above: ADA recommended refe rence rangeRandom Glucose Reference Range is dependent on time and content of last meal. Glucose of more than 200 mg/dL in a nonstressed, ambulatory subject supports the diagnosis of Diabetes Mellitus. Serum or plasma potassium me asurement (moles/volume)Ordered By: Melva Owusu on 06-27-2022 Potassium [Moles/Vol] 3.8 mmol/L 3.5-5.1 [facility] Serum or plasma sodium measu rement (moles/volume)Ordered By: Melva Owusu on 06-27-2022 Sodium [Moles/Vol] 136 mmol/L 136-146 [facility] Serum or plasma total biliru bin measurement (mass/volume)Ordered By: Melva Owusu on 06-27-2022 Bilirubin [Mass/Vol] 0.9 mg/dL 0.3-1.2 [facility] Serum or plasma total carbon dioxide measurement (moles/volume)Ordered By: Melva Owusu on 06-27-2022 CO2 [Moles/Vol] 28.8 mmol/L 22.0-30.[address] [facility] Serum or plasma urea nitroge n measurement (mass/volume)Ordered By: Melva Owusu on 06-27-2022 Urea nitrogen [Mass/Vol] 40 mg/dL 05-31 [facility] Jose Ag Negativeon 06-27-20 Jose Ag Negative Negative Normal Negative [facility] Comment on above: Result Comment: This is a duplicate Jose SARS Antigen (MORIAH) result to be used for statistical tracking purpose only. PERFORMED BY: [place] [address] [address] GARCIA M.D. Performed By: #### S OFIANEG, COVID-19 JOSE #### [address] Specific gravity Auto test s trip (U) [Rel density]Ordered By: Melva Owusu on 06-27-2022 Specific gravity (U) [Rel density] 1.012 1.001-1.030 [facility] Urinalysison 06-27-2022 Appearance (U) Clear Normal Clear [facility] Comment on above: Order Comment: Name Collection Type:: Clean-Voided Midstream Performed By: #### U A #### [place] [address] [place] Bilirubin,Urine Negative Normal Negative [facility] Comment on above: Order Comment: Name Collection Type:: Clean-Voided Midstream Performed By: #### U A #### [place] [address] [place] Color (U) Yellow Normal Yellow [facility] Comment on above: Order Comment: Name Collection Type:: Clean-Voided Midstream Performed By: #### U A #### [facility] [address] Glucose Ql (U) Normal Normal Normal [facility] Comment on above: Order Comment: Name Collection Type:: Clean-Voided Midstream Performed By: #### U A #### [facility] [address] Ketones Ql (U) Negative Normal Negative [facility] Comment on above: Order Comment: Name Collection Type:: Clean-Voided Midstream Performed By: #### U A #### [address] Leukocyte esterase Test strip Ql (U) Negative Normal Negative [facility] Comment on above: Order Comment: Name Collection Type:: Clean-Voided Midstream Performed By: #### U A #### [facility] [address] [place] [address] [place] Nitrite,Urine Negative Normal Negative [facility] Comment on above: Order Comment: Name Collection Type:: Clean-Voided Midstream Performed By: #### U A #### [facility] [address] [place] [address] [place] Occult Blood,Urine Negative Normal Negative [facility] Comment on above: Order Comment: Name Collection Type:: Clean-Voided Midstream Result Comment: PERF ORMED BY: [place] [address] [address] GARCIA M.D. Performed By: #### U A #### [facility] [address] [place] [address] [place] pH (U) 6.0 [pH] Normal 5.0-9.0 [facility] Comment on above: Order Comment: Name Collection Type:: Clean-Voided Midstream Performed By: #### U A #### [facility] [address] [place] [address] [place] Protein,Urine Negative Normal Negative [facility] Comment on above: Order Comment: Name Collection Type:: Clean-Voided Midstream Performed By: #### U A #### [facility] [address] Specificy [place],Urine 1.012 Normal 1.001-1.030 [facility] Comment on above: Order Comment: Name Collection Type:: Clean-Voided Midstream Performed By: #### U A #### [facility] [address] [place] [address] [place] Urobilinogen,Urine Normal Normal Normal [facility] Comment on above: Order Comment: Name Collection Type:: Clean-Voided Midstream Performed By: #### U A #### [facility] [address] [place] [address] [place] Urine clarity by refractomet ry automatedOrdered By: Melva Owusu on 06-27-2022 Clarity Refractometry automated (U) Clear Clear [facility] Urine glucose measurement by automated test strip (mass/volume)Ordered By: Melva Owusu on 06-27-2022 Glucose Auto test strip (U) [Mass/Vol] Normal mg/dL Normal [facility] Urine hemoglobin detection b y automated test stripOrdered By: Melva Owusu on 06-27-2022 Hemoglobin Auto test strip Ql (U) Negative Negative [facility] Urine lactic acid measuremen tOrdered By: Melva Owusu on 06-27-2022 Lactate (U) [Moles/Vol] 1.7 mmol/L 0.5-2.2 [facility] Urine leukocyte esterase det ection by automated test stripOrdered By: Melva Owusu on 06-27-2022 Leukocyte esterase Auto test strip Ql (U) Negative Negative [facility] Urobilinogen Auto test strip (U) [Mass/Vol]Ordered By: Melva Owusu on 06-27-2022 Urobilinogen (U) [Mass/Vol] Normal mg/dL Normal [facility] XR chest 2V*on 06-27-2022 XR chest 2V* [facility] [address] [place] [address] XRay Report Signed Patient: Man Patel MR#: [id number] : 1950 Acct:[id number] Age/Sex: 72 / M ADM Date: 06/27/22 Loc: ER Room: Type: [facility] ER Attending Dr: Copies to: [...] Cris Johnson M.D.06/27/2022 3:42 PM Dictation Location: [place] [address] Transcribed By: [facility] 06/27/221541 Dictated By: Cris Johnson MD 06/27/221539 Signed By: 06/27/221541 Normal [facility] pH Auto test strip (U)Ordere d By: Melva Owusu on 06-27-2022 pH (U) 6.0 [pH] 5.0-9.0 [facility] ECHOCARDIO M/2D COMPLETEon 1 ECHOCARDIO M/2D COMPLETE Normal [facility] BASIC METABOLIC PANELon 09-0 Calcium [Mass/Vol] 8.6 mg/dL Normal 8.6-10.3 [facility] Comment on above: Order Comment: Yes: Add to Previous draw if able Performed By: #### 5 0103 #### [facility] [address] [place] [address], [facility] Chloride [Moles/Vol] 97 mmol/L Low 98-107 [facility] Comment on above: Order Comment: Yes: Add to Previous draw if able Performed By: #### 5 0103 #### [facility] [address] [place] [address], [facility] CO2 [Moles/Vol] 30 mmol/L Normal 21-31 [facility] Comment on above: Order Comment: Yes: Add to Previous draw if able Performed By: #### 5 0103 #### [facility] [address] [place] [address], [facility] Creatinine [Mass/Vol] 2.14 mg/dL High 0.70-1.30 [facility] Comment on above: Order Comment: Yes: Add to Previous draw if able Performed By: #### 5 0103 #### [facility] [address] [place] [address], [facility] EGFR 32 ml/min/1.73sq m Abnormal >60 [facility] Comment on above: Order Comment: Yes: Add to Previous draw if able Result Comment: [facility]'s estimated glomerular filtration rate (eGFR) will no [...] individuals. Performed By: #### 5 0103 #### [facility] [address] [place] [address], [facility] Glucose [Mass/Vol] 90 mg/dL Normal 70-100 [facility] Comment on above: Order Comment: Yes: Add to Previous draw if able Performed By: #### 5 0103 #### [facility] [address] [place] [address], [place] Potassium [Moles/Vol] 3.7 mmol/L Normal 3.5-5.1 [facility] Comment on above: Order Comment: Yes: Add to Previous draw if able Performed By: #### 5 0103 #### [facility] [address] Sodium [Moles/Vol] 135 mmol/L Low 136-145 [facility] Comment on above: Order Comment: Yes: Add to Previous draw if able Performed By: #### 5 0103 #### [facility] [address] Urea nitrogen [Mass/Vol] 32 mg/dL High 7-25 [facility] Comment on above: Order Comment: Yes: Add to Previous draw if able Performed By: #### 5 0103 #### [facility] [address] *SARS-CoV-2 COVID-19on 05-07 SARS-CoV-2 (COVID-19) RNA ELIZABETH+probe Ql (Unsp spec) Detected Critically abnormal Not Detected [facility] Comment on above: Order Comment: The A ptima SARS-CoV-2 assay is a nucleic acid amplification testintended for the qualitative detection of RNA from SARS-CoV-2 isolatedand purified from nasopharyngeal (HAND BOX FOLDER), oropharyngeal (OP), nasal swab,sputum, and bronchoalveolar lavage (BAL) specimens from patients withsigns and symptoms of infection who are suspected of COVID-19.Results are for the identification of SARS-CoV-2 RNA. The SARS-CoV-2 RNAis generally detectable during the acute phase of infection.The Aptima SARS-CoV-2 Assay on the [place] [employer] [place] [employer] system isintended for use by laboratory personnel specifically instructed andtrained in the operation of the [place] [employer] [place] [employer] system. TheAptima SARS-CoV-2 assay is only [...] other viruses. Performed By: #### 3 1792 ####[facility] [facility] BASIC METABOLIC PANELon 08-3 Calcium [Mass/Vol] 8.4 mg/dL Low 8.6-10.3 [facility] Comment on above: Order Comment: No: D o not add to previous draw Performed By: #### 0 0071, 74839, 96300 ####[facility] [place] [address], [facility] Chloride [Moles/Vol] 97 mmol/L Low 98-107 [facility] Comment on above: Order Comment: No: D o not add to previous draw Performed By: #### 0 0071, 74160, 73474 ####[facility] CO2 [Moles/Vol] 30 mmol/L Normal 21-31 [facility] Comment on above: Order Comment: No: D o not add to previous draw Performed By: #### 0 0071, 21190, 43100 ####[facility] Creatinine [Mass/Vol] 2.06 mg/dL High 0.70-1.30 [facility] Comment on above: Order Comment: No: D o not add to previous draw Performed By: #### 0 0071, 95432, 67826 ####[facility] EGFR 34 ml/min/1.73sq m Abnormal >60 [facility] Comment on above: Order Comment: No: D o not add to previous draw Result Comment: [facility]'s estimated glomerular filtration rate (eGFR) will no [...] of individuals. Performed By: #### 0 0071, 29547, 68845 ####[facility] [facility] [place] [address], [facility] Glucose [Mass/Vol] 86 mg/dL Normal 70-100 [facility] Comment on above: Order Comment: No: D o not add to previous draw Performed By: #### 0 0071, 34500, 50037 ####[facility] [place] [address], [facility] Potassium [Moles/Vol] 3.7 mmol/L Normal 3.5-5.1 [facility] Comment on above: Order Comment: No: D o not add to previous draw Performed By: #### 0 0071, 08013, 25445 ####[facility] [facility] [place] [address], [facility] Sodium [Moles/Vol] 135 mmol/L Low 136-145 [facility] Comment on above: Order Comment: No: D o not add to previous draw Performed By: #### 0 0071, 93259, 80030 ####[facility] [facility] [place] [address], [facility] Urea nitrogen [Mass/Vol] 35 mg/dL High 7-25 [facility] Comment on above: Order Comment: No: D o not add to previous draw Performed By: #### 0 0071, 97251, 04442 ####[facility] [facility] [place] [place] [address], [facility] CBC COMPLETE BLOOD COUNTon 0 8- Erythrocyte distribution width (RBC) [Ratio] 21.2 % High 11.5-15.0 [facility] Comment on above: Order Comment: No: D o not add to previous draw Performed By: #### 5 0608 #### [facility] [address] [place] [address], [facility] Hematocrit (Bld) [Volume fraction] 36.1 % Low 39.0-50.0 [facility] Comment on above: Order Comment: No: D o not add to previous draw Performed By: #### 5 0608 #### [facility] [address] [place] [id number], [facility] Hemoglobin (Bld) [Mass/Vol] 10.4 g/dL Low 13.0-17.0 [facility] Comment on above: Order Comment: No: D o not add to previous draw Performed By: #### 5 0608 #### [facility] [address] [place] [address], [facility] MCH (RBC) [Entitic mass] 23.6 pg Low 27.0-33.0 [facility] Comment on above: Order Comment: No: D o not add to previous draw Performed By: #### 5 0608 #### [facility] [address] [address], [facility] MCHC (RBC) [Mass/Vol] 28.8 g/dL Low 32.0-35.0 [facility] Comment on above: Order Comment: No: D o not add to previous draw Performed By: #### 5 0608 #### [facility] [address] [place] [id number], [facility] MCV (RBC) [Entitic vol] 81.9 fL Low 82.0-98.0 [facility] Comment on above: Order Comment: No: D o not add to previous draw Performed By: #### 5 0608 #### [facility] [address] [place] [address], [facility] Nucleated RBC/100 WBC (Bld) [Ratio] 0 % Normal 0-0 [facility] Comment on above: Order Comment: No: D o not add to previous draw Performed By: #### 5 0608 #### [facility] [address] [place] [address], [facility] PLAT CNT 207 10*3/uL Normal 150-400 [facility] Comment on above: Order Comment: No: D o not add to previous draw Performed By: #### 5 0608 #### [facility] [address] [place] [address], [facility] RBC (Bld) [#/Vol] 4.41 10*6/uL Normal 4.20-5.70 [facility] Comment on above: Order Comment: No: D o not add to previous draw Performed By: #### 5 0608 #### [facility] [address] [place] [address], [facility] WBC (Bld) [#/Vol] 4.60 10*3/uL Normal 4.00-10.60 [facility] Comment on above: Order Comment: No: D o not add to previous draw Performed By: #### 5 0608 #### [facility] [address] [place] [address], [facility] MAGNESIUM BLOODon 05-07-2022 Magnesium [Mass/Vol] 2.3 mg/dL Normal 1.9-2.7 [facility] Comment on above: Order Comment: No: D o not add to previous draw Performed By: #### 0 0071, 20533, 98235 ####[facility] [place] [address], [facility] PHOSPHORUS BLOODon Phosphate [Mass/Vol] 2.6 mg/dL Normal 2.5-5.0 [facility] Comment on above: Order Comment: No: D o not add to previous draw Performed By: #### 0 0071, 91638, 13530 ####[facility] [place] [address], [facility] POC SARS COV2 ANTIGEN POSITI VEon 05-07-2022 POC SARS COV2 ANTIGEN POS Positive Critically abnormal NEGATIVE [facility] Comment on above: Result Comment: Posi tive results indicate the presence of viral antigens, but clinical correlation with patient history and other diagnostic information is necessary to determine infection status. Positive results do not rule out bacterial infection or co-infection with other viruses. The agent detected may not be the definite cause of disease. Laboratories within the [facility] and its territories are required to report all results to the appropriate public health authorities. The Clarity COVID-19 Antigen Rapid Test Cassette is a rapid chromatographic immunoassay intended for the qualitative detection of the nucleocapsid protein antigen from SARS-CoV-2 in direct nasopharyngeal swab (HAND BOX FOLDER) specimens from individuals who are suspected of [...] Accreditation. Performed By: #### 3 5 #### [facility] [address] [facility] [place] [address], [facility] BASIC METABOLIC PANELon 04-09 Calcium [Mass/Vol] 8.3 mg/dL Low 8.6-10.3 [facility] Comment on above: Order Comment: No: D o not add to previous draw Performed By: #### 7 0207 #### [facility] [address] [place] [address], [facility] Chloride [Moles/Vol] 99 mmol/L Normal 98-107 [facility] Comment on above: Order Comment: No: D o not add to previous draw Performed By: #### 7 0207 #### [facility] [address] [place] [address], [place] CO2 [Moles/Vol] 30 mmol/L Normal 21-31 [facility] Comment on above: Order Comment: No: D o not add to previous draw Performed By: #### 7 0207 #### [facility] [address] [place] [address], [facility] Creatinine [Mass/Vol] 2.08 mg/dL High 0.70-1.30 [facility] Comment on above: Order Comment: No: D o not add to previous draw Performed By: #### 7 0207 #### [facility] [address] [place] [address], [facility] EGFR 34 ml/min/1.73sq m Abnormal >60 [facility] Comment on above: Order Comment: No: D o not add to previous draw Result Comment: [facility]'s estimated glomerular filtration rate (eGFR) will no [...] individuals. Performed By: #### 7 0207 #### [facility] [address] [place] [address], [facility] Glucose [Mass/Vol] 91 mg/dL Normal 70-100 [facility] Comment on above: Order Comment: No: D o not add to previous draw Performed By: #### 7 0207 #### [facility] [address] [place] [address], [facility] Potassium [Moles/Vol] 3.5 mmol/L Normal 3.5-5.1 [facility] Comment on above: Order Comment: No: D o not add to previous draw Performed By: #### 7 0207 #### [facility] [address] [place] [address], [place] Sodium [Moles/Vol] 137 mmol/L Normal 136-145 [facility] Comment on above: Order Comment: No: D o not add to previous draw Performed By: #### 7 0207 #### [facility] [address] Urea nitrogen [Mass/Vol] 36 mg/dL High 7-25 [facility] Comment on above: Order Comment: No: D o not add to previous draw Performed By: #### 7 0207 #### [facility] [address] TSH3 WITH REFLEX FT4on 05-06 TSH 3RD GENERATION 2.46 uIU/mL Normal 0.34-5.60 [facility] Comment on above: Performed By: #### 7 0207 #### [facility] [address] BASIC METABOLIC PANELon 04-09 Calcium [Mass/Vol] 7.9 mg/dL Low 8.6-10.3 [facility] Comment on above: Order Comment: Check Pacemaker/AICD Lead Position, Chest X-ray PA \EANDE\ LAT in Dept ;DO NOT lift affected arm above shoulder. S/P pacemaker/ICD implant. Verify lead placement Performed By: #### 0 0071 ####[facility] [facility].[address] Chloride [Moles/Vol] 99 mmol/L Normal 98-107 [facility] Comment on above: Order Comment: Check Pacemaker/AICD Lead Position, Chest X-ray PA \EANDE\ LAT in Dept ;DO NOT lift affected arm above shoulder. S/P pacemaker/ICD implant. Verify lead placement Performed By: #### 0 0071 ####[facility] [facility].[address] CO2 [Moles/Vol] 28 mmol/L Normal 21-31 [facility] Comment on above: Order Comment: Check Pacemaker/AICD Lead Position, Chest X-ray PA \EANDE\ LAT in Dept ;DO NOT lift affected arm above shoulder. S/P pacemaker/ICD implant. Verify lead placement Performed By: #### 0 0071 ####[facility] Creatinine [Mass/Vol] 2.11 mg/dL High 0.70-1.30 [facility] Comment on above: Order Comment: Check Pacemaker/AICD Lead Position, Chest X-ray PA \EANDE\ LAT in Dept ;DO NOT lift affected arm above shoulder. S/P pacemaker/ICD implant. Verify lead placement Performed By: #### 0 0071 ####[facility] EGFR 33 ml/min/1.73sq m Abnormal >60 [facility] Comment on above: Order Comment: Check Pacemaker/AICD Lead Position, Chest X-ray PA \EANDE\ LAT in Dept ;DO NOT lift affected arm above shoulder. S/P pacemaker/ICD implant. Verify lead placement Result Comment: [facility]'s estimated glomerular filtration rate (eGFR) will no [...] of individuals. Performed By: #### 0 0071 ####[facility] [place] [address], [facility] Glucose [Mass/Vol] 95 mg/dL Normal 70-100 [facility] Comment on above: Order Comment: Check Pacemaker/AICD Lead Position, Chest X-ray PA \EANDE\ LAT in Dept ;DO NOT lift affected arm above shoulder. S/P pacemaker/ICD implant. Verify lead placement Performed By: #### 0 0071 ####[facility] [place] [address], [place] Potassium [Moles/Vol] 3.5 mmol/L Normal 3.5-5.1 [facility] Comment on above: Order Comment: Check Pacemaker/AICD Lead Position, Chest X-ray PA \EANDE\ LAT in Dept ;DO NOT lift affected arm above shoulder. S/P pacemaker/ICD implant. Verify lead placement Performed By: #### 0 0071 ####[place] [address] [address] Sodium [Moles/Vol] 137 mmol/L Normal 136-145 [facility] Comment on above: Order Comment: Check Pacemaker/AICD Lead Position, Chest X-ray PA \EANDE\ LAT in Dept ;DO NOT lift affected arm above shoulder. S/P pacemaker/ICD implant. Verify lead placement Performed By: #### 0 0071 ####[address] Urea nitrogen [Mass/Vol] 37 mg/dL High 7-25 [facility] Comment on above: Order Comment: Check Pacemaker/AICD Lead Position, Chest X-ray PA \EANDE\ LAT in Dept ;DO NOT lift affected arm above shoulder. S/P pacemaker/ICD implant. Verify lead placement Performed By: #### 0 0071 ####[address] CBC COMPLETE BLOOD COUNTon 0 05-05-2022 Erythrocyte distribution width (RBC) [Ratio] 21.2 % High 11.5-15.0 [facility] Comment on above: Order Comment: Unkno wn Performed By: #### 5 0608 ####[place] [address] [address] Hematocrit (Bld) [Volume fraction] 35.5 % Low 39.0-50.0 [facility] Comment on above: Order Comment: Unkno wn Performed By: #### 5 0608 ####[address] [place] [address], [place] Hemoglobin (Bld) [Mass/Vol] 10.5 g/dL Low 13.0-17.0 [facility] Comment on above: Order Comment: Unkno wn Performed By: #### 5 0608 ####[facility] MCH (RBC) [Entitic mass] 23.8 pg Low 27.0-33.0 [facility] Comment on above: Order Comment: Unkno wn Performed By: #### 5 0608 ####[facility] MCHC (RBC) [Mass/Vol] 29.6 g/dL Low 32.0-35.0 [facility] Comment on above: Order Comment: Unkno wn Performed By: #### 5 0608 ####[facility] MCV (RBC) [Entitic vol] 80.5 fL Low 82.0-98.0 [facility] Comment on above: Order Comment: Unkno wn Performed By: #### 5 0608 ####[facility] Nucleated RBC/100 WBC (Bld) [Ratio] 0 % Normal 0-0 [facility] Comment on above: Order Comment: Unkno wn Performed By: #### 5 0608 ####[facility] PLAT CNT 161 10*3/uL Normal 150-400 [facility] Comment on above: Order Comment: Unkno wn Performed By: #### 5 0608 ####[facility] RBC (Bld) [#/Vol] 4.41 10*6/uL Normal 4.20-5.70 [facility] Comment on above: Order Comment: Unkno wn Performed By: #### 5 0608 ####[facility] [place] [address], [facility] WBC (Bld) [#/Vol] 4.71 10*3/uL Normal 4.00-10.60 [facility] Comment on above: Order Comment: Unkno wn Performed By: #### 5 0608 ####[facility] [facility] BASIC METABOLIC PANELon 08-2 -2021 Calcium [Mass/Vol] 8.1 mg/dL Low 8.6-10.3 [facility] Comment on above: Order Comment: No: D o not add to previous draw Performed By: #### 3 2044 #### [facility] [address] [place] [address], [facility] Chloride [Moles/Vol] 97 mmol/L Low 98-107 [facility] Comment on above: Order Comment: No: D o not add to previous draw Performed By: #### 3 2044 #### [facility] [address] [place] [address], [facility] CO2 [Moles/Vol] 31 mmol/L Normal 21-31 [facility] Comment on above: Order Comment: No: D o not add to previous draw Performed By: #### 3 2044 #### [facility] [address] [place] [address], [facility] Creatinine [Mass/Vol] 1.98 mg/dL High 0.70-1.30 [facility] Comment on above: Order Comment: No: D o not add to previous draw Performed By: #### 3 2044 #### [facility] [address] [place] [address], [facility] EGFR 36 ml/min/1.73sq m Abnormal >60 [facility] Comment on above: Order Comment: No: D o not add to previous draw Result Comment: [facility]'s estimated glomerular filtration rate (eGFR) will no [...] individuals. Performed By: #### 3 2044 #### [facility] [address] [place] [address], [facility] Glucose [Mass/Vol] 88 mg/dL Normal 70-100 [facility] Comment on above: Order Comment: No: D o not add to previous draw Performed By: #### 3 2044 #### [facility] [address] [place] [address], [facility] Potassium [Moles/Vol] 3.5 mmol/L Normal 3.5-5.1 [facility] Comment on above: Order Comment: No: D o not add to previous draw Performed By: #### 3 2044 #### [facility] [address] [place] [address], [place] Sodium [Moles/Vol] 137 mmol/L Normal 136-145 [facility] Comment on above: Order Comment: No: D o not add to previous draw Performed By: #### 3 2044 #### [facility] [address] [place] [address], [facility] Urea nitrogen [Mass/Vol] 35 mg/dL High 7-25 [facility] Comment on above: Order Comment: No: D o not add to previous draw Performed By: #### 3 2044 #### [facility] [address] [place] [address], [facility] CBC COMPLETE BLOOD COUNTon 0 8- Erythrocyte distribution width (RBC) [Ratio] 21.2 % High 11.5-15.0 [facility] Comment on above: Order Comment: No: D o not add to previous draw Performed By: #### 5 0608 ####[facility] [facility].[address] Hematocrit (Bld) [Volume fraction] 34.6 % Low 39.0-50.0 [facility] Comment on above: Order Comment: No: D o not add to previous draw Performed By: #### 5 0608 ####[facility] Hemoglobin (Bld) [Mass/Vol] 10.2 g/dL Low 13.0-17.0 [facility] Comment on above: Order Comment: No: D o not add to previous draw Performed By: #### 5 0608 ####[facility] MCH (RBC) [Entitic mass] 23.8 pg Low 27.0-33.0 [facility] Comment on above: Order Comment: No: D o not add to previous draw Performed By: #### 5 0608 ####[facility] MCHC (RBC) [Mass/Vol] 29.5 g/dL Low 32.0-35.0 [facility] Comment on above: Order Comment: No: D o not add to previous draw Performed By: #### 5 0608 ####[facility] MCV (RBC) [Entitic vol] 80.8 fL Low 82.0-98.0 [facility] Comment on above: Order Comment: No: D o not add to previous draw Performed By: #### 5 0608 ####[facility] Nucleated RBC/100 WBC (Bld) [Ratio] 0 % Normal 0-0 [facility] Comment on above: Order Comment: No: D o not add to previous draw Performed By: #### 5 0608 ####[facility] [facility] [place] [address], [facility] PLAT CNT 131 10*3/uL Low 150-400 [facility] Comment on above: Order Comment: No: D o not add to previous draw Performed By: #### 5 0608 ####[facility] [facility] [place] [address], [facility] RBC (Bld) [#/Vol] 4.28 10*6/uL Normal 4.20-5.70 [facility] Comment on above: Order Comment: No: D o not add to previous draw Performed By: #### 5 0608 ####[facility] [facility] [place] [address], [facility] WBC (Bld) [#/Vol] 4.58 10*3/uL Normal 4.00-10.60 [facility] Comment on above: Order Comment: No: D o not add to previous draw Performed By: #### 5 0608 ####[facility] [facility].[address] Cardiovascular Lab Reporton 05-04-2022 Cardiovascular Lab Report [facility] Patient Name: [facility] Man Ace MR #: [id number] Department of Physician: Fidel Scott M.D. Division of Service Date: 05/03/2022 Cardiology Birthdate: 1950 Adult Cardiovascular Room #: 5AB [id number] Services [facility] [address] [place] [address] Cardiovascular Laboratory Report FINAL IMPRESSIONS: 1. Moderately [...] over the hub of the previously placed Parnell sheath. A Evangelista catheter was advanced through Parnell sheath; pressures were measured in the right atrium, right ventricle, pulmonary artery, and pulmonary capillary wedge positions. Oxygen saturations were obtained and cardiac output/cardiac index was calculated using the modified Eliud principle. The Evangelista catheter was removed. The Parnell sheath was to be removed with application [...] Iniguez M.D. Date Trans: 05/04/2022 05:38 Keerthi/surekha [id number] cc: Li Cintron M.D. Heart Failure/ Transplant Mailstop [address] [facility] [address] Normal [facility] BASIC METABOLIC PANELon 04-09 Calcium [Mass/Vol] 7.8 mg/dL Low 8.6-10.3 [facility] Comment on above: Order Comment: Check Pacemaker/AICD Lead Position, Chest X-ray PA \EANDE\ LAT in Dept ;DO NOT lift affected arm above shoulder. S/P pacemaker/ICD implant. Verify lead placement Performed By: #### 4 1000, 05316, 33915 ####[facility] [facility].[address] Chloride [Moles/Vol] 98 mmol/L Normal 98-107 [facility] Comment on above: Order Comment: Check Pacemaker/AICD Lead Position, Chest X-ray PA \EANDE\ LAT in Dept ;DO NOT lift affected arm above shoulder. S/P pacemaker/ICD implant. Verify lead placement Performed By: #### 4 1000, 04105, 01377 ####[facility] [facility].[address] CO2 [Moles/Vol] 31 mmol/L Normal 21-31 [facility] Comment on above: Order Comment: Check Pacemaker/AICD Lead Position, Chest X-ray PA \EANDE\ LAT in Dept ;DO NOT lift affected arm above shoulder. S/P pacemaker/ICD implant. Verify lead placement Performed By: #### 4 1000, 35708, 84035 ####[facility] [facility].[address] Creatinine [Mass/Vol] 2.19 mg/dL High 0.70-1.30 [facility] Comment on above: Order Comment: Check Pacemaker/AICD Lead Position, Chest X-ray PA \EANDE\ LAT in Dept ;DO NOT lift affected arm above shoulder. S/P pacemaker/ICD implant. Verify lead placement Performed By: #### 4 1000, 80870, 08307 ####[facility] [facility].[address] EGFR 32 ml/min/1.73sq m Abnormal >60 [facility] Comment on above: Order Comment: Check Pacemaker/AICD Lead Position, Chest X-ray PA \EANDE\ LAT in Dept ;DO NOT lift affected arm above shoulder. S/P pacemaker/ICD implant. Verify lead placement Result Comment: [facility]'s estimated glomerular filtration rate (eGFR) will no [...] of individuals. Performed By: #### 4 999, 27465, 89049 ####[facility] [facility] [place] [place] [address], [facility] Glucose [Mass/Vol] 95 mg/dL Normal 70-100 [facility] Comment on above: Order Comment: Check Pacemaker/AICD Lead Position, Chest X-ray PA \EANDE\ LAT in Dept ;DO NOT lift affected arm above shoulder. S/P pacemaker/ICD implant. Verify lead placement Performed By: #### 4 999, 48820, 85527 ####[facility] [place] [address], [facility] Potassium [Moles/Vol] 3.3 mmol/L Low 3.5-5.1 [facility] Comment on above: Order Comment: Check Pacemaker/AICD Lead Position, Chest X-ray PA \EANDE\ LAT in Dept ;DO NOT lift affected arm above shoulder. S/P pacemaker/ICD implant. Verify lead placement Performed By: #### 4 999, 60760, 91108 ####[facility] [facility] [place] [place] [address], [facility] Sodium [Moles/Vol] 137 mmol/L Normal 136-145 [facility] Comment on above: Order Comment: Check Pacemaker/AICD Lead Position, Chest X-ray PA \EANDE\ LAT in Dept ;DO NOT lift affected arm above shoulder. S/P pacemaker/ICD implant. Verify lead placement Performed By: #### 4 999, 27942, 48830 ####[facility] [facility].[place] Urea nitrogen [Mass/Vol] 39 mg/dL High 7-25 [facility] Comment on above: Order Comment: Check Pacemaker/AICD Lead Position, Chest X-ray PA \EANDE\ LAT in Dept ;DO NOT lift affected arm above shoulder. S/P pacemaker/ICD implant. Verify lead placement Performed By: #### 4 1000, 95926, 85309 ####[facility] CBC W/DIFFon 05-03-2022 ABS IMM GRANS 0.0 10*3/uL Normal 0.0-0.2 [facility] Comment on above: Order Comment: No: D o not add to previous draw Performed By: #### 5 0608 #### [facility] [address] ABS NEUTROPHILS 3.8 10*3/uL Normal 1.6-7.6 [facility] Comment on above: Order Comment: No: D o not add to previous draw Performed By: #### 5 0608 #### [facility] [address] Basophils (Bld) [#/Vol] 0.0 10*3/uL Normal 0.0-0.2 [facility] Comment on above: Order Comment: No: D o not add to previous draw Performed By: #### 5 0608 #### [facility] [address] Basophils/100 WBC (Bld) 0.4 % Normal 0.0-1.0 [facility] Comment on above: Order Comment: No: D o not add to previous draw Performed By: #### 5 0608 #### [facility] [address] [place] [address], [facility] Eosinophils (Bld) [#/Vol] 0.3 10*3/uL Normal 0.0-0.5 [facility] Comment on above: Order Comment: No: D o not add to previous draw Performed By: #### 5 0608 #### [facility] [address] [place] [address], [facility] Eosinophils/100 WBC (Bld) 5.9 % Normal 0.0-6.0 [facility] Comment on above: Order Comment: No: D o not add to previous draw Performed By: #### 5 0608 #### [facility] [address] Erythrocyte distribution width (RBC) [Ratio] 20.8 % High 11.5-15.0 [facility] Comment on above: Order Comment: No: D o not add to previous draw Performed By: #### 5 0608 #### [facility] [address] Hematocrit (Bld) [Volume fraction] 31.0 % Low 39.0-50.0 [facility] Comment on above: Order Comment: No: D o not add to previous draw Performed By: #### 5 0608 #### [facility] [address] Hemoglobin (Bld) [Mass/Vol] 9.2 g/dL Low 13.0-17.0 [facility] Comment on above: Order Comment: No: D o not add to previous draw Performed By: #### 5 0608 #### [facility] [address] [place] [address], [facility] IMMATURE GRANS 0.6 % Normal 0.0-1.0 [facility] Comment on above: Order Comment: No: D o not add to previous draw Performed By: #### 5 0608 #### [facility] [address] [facility] [place] [address], [facility] Lymphocytes (Bld) [#/Vol] 0.6 10*3/uL Low 1.2-4.0 [facility] Comment on above: Order Comment: No: D o not add to previous draw Performed By: #### 5 0608 #### [facility] [address] [address], [facility] Lymphocytes/100 WBC (Bld) 11.3 % Low 20.0-45.0 [facility] Comment on above: Order Comment: No: D o not add to previous draw Performed By: #### 5 0608 #### [facility] [address] [place] [address], [facility] MCH (RBC) [Entitic mass] 24.0 pg Low 27.0-33.0 [facility] Comment on above: Order Comment: No: D o not add to previous draw Performed By: #### 5 0608 #### [facility] [address] [place] [address], [facility] MCHC (RBC) [Mass/Vol] 29.7 g/dL Low 32.0-35.0 [facility] Comment on above: Order Comment: No: D o not add to previous draw Performed By: #### 5 0608 #### [facility] [address] [place] [address], [facility] MCV (RBC) [Entitic vol] 80.9 fL Low 82.0-98.0 [facility] Comment on above: Order Comment: No: D o not add to previous draw Performed By: #### 5 0608 #### [facility] [address] [place] [address], [facility] Monocytes (Bld) [#/Vol] 0.4 10*3/uL Normal 0.1-1.0 [facility] Comment on above: Order Comment: No: D o not add to previous draw Performed By: #### 5 0608 #### [facility] [address] [place] [address], [facility] MONOS 8.2 % Normal 5.0-12.0 [facility] Comment on above: Order Comment: No: D o not add to previous draw Performed By: #### 5 0608 #### [facility] [address] [place] [address], [facility] Neutrophils/100 WBC (Bld) 73.6 % High 40.0-72.0 [facility] Comment on above: Order Comment: No: D o not add to previous draw Performed By: #### 5 0608 #### [facility] [address] [facility] [address], [facility] Nucleated RBC/100 WBC (Bld) [Ratio] 0 % Normal 0-0 [facility] Comment on above: Order Comment: No: D o not add to previous draw Performed By: #### 5 0608 #### [facility] [address] [facility] [address], [facility] PLAT CNT 131 10*3/uL Low 150-400 [facility] Comment on above: Order Comment: No: D o not add to previous draw Performed By: #### 5 0608 #### [facility] [address] [place] [address], [facility] RBC (Bld) [#/Vol] 3.83 10*6/uL Low 4.20-5.70 [facility] Comment on above: Order Comment: No: D o not add to previous draw Performed By: #### 5 0608 #### [facility] [address] [place] [id number], [facility] WBC (Bld) [#/Vol] 5.22 10*3/uL Normal 4.00-10.60 [facility] Comment on above: Order Comment: No: D o not add to previous draw Performed By: #### 5 0608 #### [facility] [address] [place] [id number], [facility] MAGNESIUM BLOODon 05-03-2022 Magnesium [Mass/Vol] 2.0 mg/dL Normal 1.9-2.7 [facility] Comment on above: Order Comment: Check Pacemaker/AICD Lead Position, Chest X-ray PA \EANDE\ LAT in Dept ;DO NOT lift affected arm above shoulder. S/P pacemaker/ICD implant. Verify lead placement Performed By: #### 4 1000, 41375, 42303 ####[facility] [place] [address], [facility] PHOSPHORUS BLOODon Phosphate [Mass/Vol] 2.2 mg/dL Low 2.5-5.0 [facility] Comment on above: Order Comment: Check Pacemaker/AICD Lead Position, Chest X-ray PA \EANDE\ LAT in Dept ;DO NOT lift affected arm above shoulder. S/P pacemaker/ICD implant. Verify lead placement Performed By: #### 4 1000, 53339, 72191 ####[facility] [facility].[address] BASIC METABOLIC PANELon 04-09 Calcium [Mass/Vol] 7.8 mg/dL Low 8.6-10.3 [facility] Comment on above: Order Comment: No: D o not add to previous draw Performed By: #### 5 0103 #### [facility] [address] [place] [address], [facility] Chloride [Moles/Vol] 98 mmol/L Normal 98-107 [facility] Comment on above: Order Comment: No: D o not add to previous draw Performed By: #### 5 0103 #### [facility] [address] [place] [address], [facility] CO2 [Moles/Vol] 29 mmol/L Normal 21-31 [facility] Comment on above: Order Comment: No: D o not add to previous draw Performed By: #### 5 0103 #### [facility] [address] [place] [address], [facility] Creatinine [Mass/Vol] 2.26 mg/dL High 0.70-1.30 [facility] Comment on above: Order Comment: No: D o not add to previous draw Performed By: #### 5 0103 #### [facility] [address] [place] [address], [facility] EGFR 30 ml/min/1.73sq m Abnormal >60 [facility] Comment on above: Order Comment: No: D o not add to previous draw Result Comment: [facility]'s estimated glomerular filtration rate (eGFR) will no [...] individuals. Performed By: #### 5 0103 #### [facility] [address] [place] [address], [facility] Glucose [Mass/Vol] 91 mg/dL Normal 70-100 [facility] Comment on above: Order Comment: No: D o not add to previous draw Performed By: #### 5 0103 #### [facility] [address] [place] [address], [facility] Potassium [Moles/Vol] 3.5 mmol/L Normal 3.5-5.1 [facility] Comment on above: Order Comment: No: D o not add to previous draw Performed By: #### 5 0103 #### [facility] [address] [place] [address], [facility] Sodium [Moles/Vol] 135 mmol/L Low 136-145 [facility] Comment on above: Order Comment: No: D o not add to previous draw Performed By: #### 5 0103 #### [facility] [address] [place] [address], [facility] Urea nitrogen [Mass/Vol] 46 mg/dL High 7-25 [facility] Comment on above: Order Comment: No: D o not add to previous draw Performed By: #### 5 0103 #### [facility] [address] CBC COMPLETE BLOOD COUNTon 0 05-02-2022 Erythrocyte distribution width (RBC) [Ratio] 20.4 % High 11.5-15.0 [facility] Comment on above: Order Comment: No: D o not add to previous draw Performed By: #### 5 0608 #### [facility] [address] [place] [address], [facility] Hematocrit (Bld) [Volume fraction] 29.9 % Low 39.0-50.0 [facility] Comment on above: Order Comment: No: D o not add to previous draw Performed By: #### 5 0608 #### [facility] [address] Hemoglobin (Bld) [Mass/Vol] 8.9 g/dL Low 13.0-17.0 [facility] Comment on above: Order Comment: No: D o not add to previous draw Performed By: #### 5 0608 #### [facility] [address] [place] [address], [facility] MCH (RBC) [Entitic mass] 24.1 pg Low 27.0-33.0 [facility] Comment on above: Order Comment: No: D o not add to previous draw Performed By: #### 5 0608 #### [facility] [address] [address], [facility] MCHC (RBC) [Mass/Vol] 29.8 g/dL Low 32.0-35.0 [facility] Comment on above: Order Comment: No: D o not add to previous draw Performed By: #### 5 0608 #### [facility] [address] [place] [address], [facility] MCV (RBC) [Entitic vol] 80.8 fL Low 82.0-98.0 [facility] Comment on above: Order Comment: No: D o not add to previous draw Performed By: #### 5 0608 #### [facility] [address] [place] [address], [facility] Nucleated RBC/100 WBC (Bld) [Ratio] 0 % Normal 0-0 [facility] Comment on above: Order Comment: No: D o not add to previous draw Performed By: #### 5 0608 #### [facility] [address] [place] [id number], [facility] PLAT CNT 130 10*3/uL Low 150-400 [facility] Comment on above: Order Comment: No: D o not add to previous draw Performed By: #### 5 0608 #### [facility] [address] [address], [facility] RBC (Bld) [#/Vol] 3.70 10*6/uL Low 4.20-5.70 [facility] Comment on above: Order Comment: No: D o not add to previous draw Performed By: #### 5 0608 #### [facility] [address] [place] [address], [facility] WBC (Bld) [#/Vol] 4.68 10*3/uL Normal 4.00-10.60 [facility] Comment on above: Order Comment: No: D o not add to previous draw Performed By: #### 5 0608 #### [facility] [address] [facility] [place] [address], [facility] MAGNESIUM BLOODon 05-02-2022 Magnesium [Mass/Vol] 2.0 mg/dL Normal 1.9-2.7 [facility] Comment on above: Order Comment: No: D o not add to previous draw Performed By: #### 5 0103 #### [facility] [address] [facility] [place] [address], [facility] PHOSPHORUS BLOODon Phosphate [Mass/Vol] 2.5 mg/dL Normal 2.5-5.0 [facility] Comment on above: Order Comment: No: D o not add to previous draw Performed By: #### 5 0103 #### [facility] [address] [place] [address], [facility] BASIC METABOLIC PANELon 08-2 Calcium [Mass/Vol] 8.0 mg/dL Low 8.6-10.3 [facility] Comment on above: Order Comment: Check Pacemaker/AICD Lead Position, Chest X-ray PA \EANDE\ LAT in Dept ;DO NOT lift affected arm above shoulder. S/P pacemaker/ICD implant. Verify lead placement Performed By: #### 4 1000, 51264, 84230 ####[facility] [place] [address], [facility] Chloride [Moles/Vol] 99 mmol/L Normal 98-107 [facility] Comment on above: Order Comment: Check Pacemaker/AICD Lead Position, Chest X-ray PA \EANDE\ LAT in Dept ;DO NOT lift affected arm above shoulder. S/P pacemaker/ICD implant. Verify lead placement Performed By: #### 4 1000, 62787, 54239 ####[facility] [place] [address], [facility] CO2 [Moles/Vol] 31 mmol/L Normal 21-31 [facility] Comment on above: Order Comment: Check Pacemaker/AICD Lead Position, Chest X-ray PA \EANDE\ LAT in Dept ;DO NOT lift affected arm above shoulder. S/P pacemaker/ICD implant. Verify lead placement Performed By: #### 4 1000, 83887, 26752 ####[facility] [place] [address], [facility] Creatinine [Mass/Vol] 2.48 mg/dL High 0.70-1.30 [facility] Comment on above: Order Comment: Check Pacemaker/AICD Lead Position, Chest X-ray PA \EANDE\ LAT in Dept ;DO NOT lift affected arm above shoulder. S/P pacemaker/ICD implant. Verify lead placement Performed By: #### 4 1000, 69344, 80100 ####[facility] EGFR 27 ml/min/1.73sq m Abnormal >60 [facility] Comment on above: Order Comment: Check Pacemaker/AICD Lead Position, Chest X-ray PA \EANDE\ LAT in Dept ;DO NOT lift affected arm above shoulder. S/P pacemaker/ICD implant. Verify lead placement Result Comment: [facility]'s estimated glomerular filtration rate (eGFR) will no [...] of individuals. Performed By: #### 4 1000, 99675, 06299 ####[facility] [facility] [place] [address], [facility] Glucose [Mass/Vol] 83 mg/dL Normal 70-100 [facility] Comment on above: Order Comment: Check Pacemaker/AICD Lead Position, Chest X-ray PA \EANDE\ LAT in Dept ;DO NOT lift affected arm above shoulder. S/P pacemaker/ICD implant. Verify lead placement Performed By: #### 4 999, 54438, 03577 ####[place] [address] [place] [address], [facility] Potassium [Moles/Vol] 3.5 mmol/L Normal 3.5-5.1 [facility] Comment on above: Order Comment: Check Pacemaker/AICD Lead Position, Chest X-ray PA \EANDE\ LAT in Dept ;DO NOT lift affected arm above shoulder. S/P pacemaker/ICD implant. Verify lead placement Performed By: #### 4 1000, 24830, 53201 ####[facility] [place] [address], [facility] Sodium [Moles/Vol] 137 mmol/L Normal 136-145 [facility] Comment on above: Order Comment: Check Pacemaker/AICD Lead Position, Chest X-ray PA \EANDE\ LAT in Dept ;DO NOT lift affected arm above shoulder. S/P pacemaker/ICD implant. Verify lead placement Performed By: #### 4 1000, 46534, 35158 ####[facility] [facility] Urea nitrogen [Mass/Vol] 49 mg/dL High 7-25 [facility] Comment on above: Order Comment: Check Pacemaker/AICD Lead Position, Chest X-ray PA \EANDE\ LAT in Dept ;DO NOT lift affected arm above shoulder. S/P pacemaker/ICD implant. Verify lead placement Performed By: #### 4 1000, 26916, 20277 ####[facility] CBC COMPLETE BLOOD COUNTon 0 - Erythrocyte distribution width (RBC) [Ratio] 20.6 % High 11.5-15.0 [facility] Comment on above: Order Comment: No: D o not add to previous draw Performed By: #### 5 0608 #### [facility] [address] [facility] [place] [address], [facility] Hematocrit (Bld) [Volume fraction] 28.9 % Low 39.0-50.0 [facility] Comment on above: Order Comment: No: D o not add to previous draw Performed By: #### 5 0608 #### [facility] [address] [place] [id number], [facility] Hemoglobin (Bld) [Mass/Vol] 8.6 g/dL Low 13.0-17.0 [facility] Comment on above: Order Comment: No: D o not add to previous draw Performed By: #### 5 0608 #### [facility] [address] [place] [id number], [facility] MCH (RBC) [Entitic mass] 24.1 pg Low 27.0-33.0 [facility] Comment on above: Order Comment: No: D o not add to previous draw Performed By: #### 5 0608 #### [facility] [address] [place] [address], [facility] MCHC (RBC) [Mass/Vol] 29.8 g/dL Low 32.0-35.0 [facility] Comment on above: Order Comment: No: D o not add to previous draw Performed By: #### 5 0608 #### [facility] [address] [place] [address], [facility] MCV (RBC) [Entitic vol] 81.0 fL Low 82.0-98.0 [facility] Comment on above: Order Comment: No: D o not add to previous draw Performed By: #### 5 0608 #### [facility] [address] [address], [facility] Nucleated RBC/100 WBC (Bld) [Ratio] 0 % Normal 0-0 [facility] Comment on above: Order Comment: No: D o not add to previous draw Performed By: #### 5 0608 #### [facility] [address] [address], [facility] PLAT CNT 130 10*3/uL Low 150-400 [facility] Comment on above: Order Comment: No: D o not add to previous draw Performed By: #### 5 0608 #### [facility] [address] [place] [address], [facility] RBC (Bld) [#/Vol] 3.57 10*6/uL Low 4.20-5.70 [facility] Comment on above: Order Comment: No: D o not add to previous draw Performed By: #### 5 0608 #### [facility] [address] [place] [address], [facility] WBC (Bld) [#/Vol] 4.33 10*3/uL Normal 4.00-10.60 [facility] Comment on above: Order Comment: No: D o not add to previous draw Performed By: #### 5 0608 #### [facility] [address] [place] [address], [facility] COOXIMETRYon 05-01-2022 COHB 2 % Normal [facility] Comment on above: Performed By: #### 7 0207 #### [facility] [address] [place] [address], [facility] METHB 1 % Normal [facility] Comment on above: Performed By: #### 7 0207 #### [facility] [address] [place] [address], [facility] Oxygen saturation in Blood 71.0 % Normal 65.0-75.0 [facility] Comment on above: Performed By: #### 7 0207 #### [facility] [address] [place] [address], [facility] THB 9.0 g/dL Normal [facility] Comment on above: Performed By: #### 7 0207 #### [facility] [address] [place] [address], [facility] MAGNESIUM BLOODon 05-01-2022 Magnesium [Mass/Vol] 2.1 mg/dL Normal 1.9-2.7 [facility] Comment on above: Order Comment: Check Pacemaker/AICD Lead Position, Chest X-ray PA \EANDE\ LAT in Dept ;DO NOT lift affected arm above shoulder. S/P pacemaker/ICD implant. Verify lead placement Performed By: #### 4 1000, 74795, 72769 ####[facility] [facility] [place] [place] [address], [facility] PHOSPHORUS BLOODon 2 Phosphate [Mass/Vol] 3.6 mg/dL Normal 2.5-5.0 [facility] Comment on above: Order Comment: Check Pacemaker/AICD Lead Position, Chest X-ray PA \EANDE\ LAT in Dept ;DO NOT lift affected arm above shoulder. S/P pacemaker/ICD implant. Verify lead placement Performed By: #### 4 1000, 05047, 48983 ####[place] [address] [address] PORTABLE CHEST 1 VIEWon 04-09 PORTABLE CHEST 1 VIEW [facility] Department of Radiology [address] [place] [address] Patient Name: MAN PATEL : 1950 Sex: M Age: Race: White Pt. Location: [place] [address] Patient Status: I Ordered Date: 05/01/2022 10:35:00 [...] obtained. COMPARISON: Chest radiograph dated 08/01/2021 FINDINGS: Parnell-Eleazar catheter placed via right internal jugular approach has tip in the right pulmonary artery. Dual-chamber pacemaker placed left subclavian approach. Moderate cardiomegaly. Moderate CHF. No pleural effusion. No pneumothorax. IMPRESSION: Moderate cardiomegaly. Moderate CHF. Electronically signed: Aldo Montana. Transcribed by: [email or web address], User Resident: Electronically Signed by: ALDO MONTANA @ 05/01/2022 11:16 AM [facility] Comment on above: Order Comment: Check Line Position *BLOOD CULTUREon 04-30-2022 *BLOOD CULTURE Clinical Report: (D) Specimen: BLOOD CULTURE Collected: 04/29/2022 23:47 Status: Final Last Updated: 05/05/2022 06:59 CULT RES (Final) No Growth Day 5 Normal [facility] Comment on above: Performed By: #### 3 0313 ####[facility] *BLOOD CULTURE Clinical Report: (D) Specimen: BLOOD CULTURE Collected: 04/29/2022 23:43 Status: Final Last Updated: 05/05/2022 06:59 CULT RES (Final) No Growth Day 5 Normal [facility] Comment on above: Performed By: #### 3 0313 #### [facility] [address] BASIC METABOLIC PANELon 04-09 Calcium [Mass/Vol] 8.0 mg/dL Low 8.6-10.3 [facility] Comment on above: Order Comment: No: D o not add to previous draw Performed By: #### 4 5506, 79074, 06690, 06648 ####[facility] [place] [address], [facility] Chloride [Moles/Vol] 100 mmol/L Normal 98-107 [facility] Comment on above: Order Comment: No: D o not add to previous draw Performed By: #### 4 5506, 61488, 94373, 12419 ####[facility] [place] [address], [facility] CO2 [Moles/Vol] 31 mmol/L Normal 21-31 [facility] Comment on above: Order Comment: No: D o not add to previous draw Performed By: #### 4 5506, 27684, 94181, 99068 ####[facility] [place] [address], [facility] Creatinine [Mass/Vol] 2.53 mg/dL High 0.70-1.30 [facility] Comment on above: Order Comment: No: D o not add to previous draw Performed By: #### 4 5506, 52323, 86320, 91379 ####[facility] [place] [address], [facility] EGFR 27 ml/min/1.73sq m Abnormal >60 [facility] Comment on above: Order Comment: No: D o not add to previous draw Result Comment: [facility]'s estimated glomerular filtration rate (eGFR) will no [...] of individuals. Performed By: #### 4 5506, 21915, 40836, 84040 ####[facility] [place] [address], [facility] Glucose [Mass/Vol] 94 mg/dL Normal 70-100 [facility] Comment on above: Order Comment: No: D o not add to previous draw Performed By: #### 4 5506, 98231, 79305, 98610 ####[facility] [place] [address], [facility] Potassium [Moles/Vol] 3.5 mmol/L Normal 3.5-5.1 [facility] Comment on above: Order Comment: No: D o not add to previous draw Performed By: #### 4 5506, 89030, 52649, 03550 ####[facility] Sodium [Moles/Vol] 139 mmol/L Normal 136-145 [facility] Comment on above: Order Comment: No: D o not add to previous draw Performed By: #### 4 5506, 07861, 30782, 01413 ####[facility] Urea nitrogen [Mass/Vol] 49 mg/dL High 7-25 [facility] Comment on above: Order Comment: No: D o not add to previous draw Performed By: #### 4 5506, 51634, 75749, 74365 ####[facility] CBC COMPLETE BLOOD COUNTon 0 04-30-2022 Erythrocyte distribution width (RBC) [Ratio] 20.8 % High 11.5-15.0 [facility] Comment on above: Order Comment: No: D o not add to previous draw Performed By: #### 5 0608 #### [facility] [address] [place] [address], [facility] Hematocrit (Bld) [Volume fraction] 28.3 % Low 39.0-50.0 [facility] Comment on above: Order Comment: No: D o not add to previous draw Performed By: #### 5 0608 #### [facility] [address] [place] [address], [facility] Hemoglobin (Bld) [Mass/Vol] 8.5 g/dL Low 13.0-17.0 [facility] Comment on above: Order Comment: No: D o not add to previous draw Performed By: #### 5 0608 #### [facility] [address] [place] [address], [facility] MCH (RBC) [Entitic mass] 24.3 pg Low 27.0-33.0 [facility] Comment on above: Order Comment: No: D o not add to previous draw Performed By: #### 5 0608 #### [facility] [address] [place] [address], [facility] MCHC (RBC) [Mass/Vol] 30.0 g/dL Low 32.0-35.0 [facility] Comment on above: Order Comment: No: D o not add to previous draw Performed By: #### 5 0608 #### [facility] [address] [place] [id number], [facility] MCV (RBC) [Entitic vol] 80.9 fL Low 82.0-98.0 [facility] Comment on above: Order Comment: No: D o not add to previous draw Performed By: #### 5 0608 #### [facility] [address] [place] [address], [facility] Nucleated RBC/100 WBC (Bld) [Ratio] 0 % Normal 0-0 [facility] Comment on above: Order Comment: No: D o not add to previous draw Performed By: #### 5 0608 #### [facility] [address] [place] [address], [facility] PLAT CNT 139 10*3/uL Low 150-400 [facility] Comment on above: Order Comment: No: D o not add to previous draw Performed By: #### 5 0608 #### [facility] [address] [place] [id number], [facility] RBC (Bld) [#/Vol] 3.50 10*6/uL Low 4.20-5.70 [facility] Comment on above: Order Comment: No: D o not add to previous draw Performed By: #### 5 0608 #### [facility] [address] [place] [id number], [place] WBC (Bld) [#/Vol] 4.28 10*3/uL Normal 4.00-10.60 [facility] Comment on above: Order Comment: No: D o not add to previous draw Performed By: #### 5 0608 #### [facility] [address] [facility] [address], [facility] COOXIMETRYon 04-30-2022 COHB 2 % Normal [facility] Comment on above: Performed By: #### 3 0313 #### [facility] [address] [place] [address], [facility] METHB 1 % Normal [facility] Comment on above: Performed By: #### 3 0313 #### [facility] [address] [place] [address], [facility] Oxygen saturation in Blood 69.0 % Normal 65.0-75.0 [facility] Comment on above: Performed By: #### 3 0313 #### [facility] [address] [place] [address], [facility] THB 12.0 g/dL Normal [facility] Comment on above: Performed By: #### 3 0313 #### [facility] [address] [facility] [place] [address], [facility] Cardiovascular Lab Reporton 04-30-2022 Cardiovascular Lab Report [facility] Patient Name: [facility] Man Ace MR #: [id number] Department of Physician: Fidel Flowers M.D. Division of Service Date: 04/29/2022 Cardiology Birthdate: 1950 Adult Cardiovascular Room #: KASANDRA [id number] [facility] [address] [place] [address] Cardiovascular Laboratory Report CLINICAL PRESENTATION: The patient is a 72-year-old male with past medical history significant for CAD, status post CABG, heart failure with EF 40%, CKD with acute kidney injury, atrial fibrillation on Eliquis, pacemaker, and hypertension. The patient was admitted with shortness of breath and lower extremity edema concerning for [id number] systolic heart failure. He has worsening renal [...] Given worsening renal function, we will place Parnell-Eleazar catheter for invasive hemodynamic monitoring in the ICU. The patient will likely require milrinone inotrope therapy. 2. Remainder of plan per Cardiology Service. 3. There was tracing of severe V-waves, which could be seen in mitral regurgitation. Correlation with echocardiogram is recommended. PROCEDURES: Right heart catheterization, ultrasound guidance for vascular access. INDICATION: [id number] systolic heart failure. PROCEDURE DESCRIPTION: The patient [...] ultrasound guidance and micropuncture access technique, a 6-Panamanian sheath was placed in the right internal [...] renal function, we agreed to place a Parnell-Eleazar catheter for monitoring in the ICU. Next, using a wire, I exchanged the sheath to an 8-Panamanian Cordis sheath. This was sutured to the skin. Next, I advanced [employer] Parnell-Eleazar catheter to the pulmonary artery position. The [...] Eugenio Red M.D. 05/04/2022 05:00 P Eugenio Rde M.D. Date Dict: 04/29/2022/04:52 P/Eugenio Red M.D. Date Trans: 04/30/2022 10:29 A/surekha [id number] cc: Li Cintron M.D. Heart Failure/ Transplant Mailstop [address] [place] [address] Normal [facility] MAGNESIUM BLOODon 04-30-2022 Magnesium [Mass/Vol] 2.3 mg/dL Normal 1.9-2.7 [facility] Comment on above: Order Comment: No: D o not add to previous draw Performed By: #### 4 5506, 29533, 70540, 85163 ####[facility] PHOSPHORUS BLOODon Phosphate [Mass/Vol] 4.1 mg/dL Normal 2.5-5.0 [facility] Comment on above: Performed By: #### 4 5506, 03827, 62150, 06674 ####[facility] [place] [address], [facility] URIC ACID BLOODon 04-30-2022 Urate [Mass/Vol] 13.5 mg/dL High 4.4-7.6 [facility] Comment on above: Performed By: #### 4 5506, 86971, 59939, 69992 ####[facility] [place] [address], [facility] BASIC METABOLIC PANELon 04-09 Calcium [Mass/Vol] 8.4 mg/dL Low 8.6-10.3 [facility] Comment on above: Order Comment: No: D o not add to previous draw Performed By: #### 3 0313 #### [facility] [address] [place] [id number], [facility] Chloride [Moles/Vol] 100 mmol/L Normal 98-107 [facility] Comment on above: Order Comment: No: D o not add to previous draw Performed By: #### 3 0313 #### [facility] [address] [place] [address], [facility] CO2 [Moles/Vol] 30 mmol/L Normal 21-31 [facility] Comment on above: Order Comment: No: D o not add to previous draw Performed By: #### 3 0313 #### [facility] [address] [place] [address], [facility] Creatinine [Mass/Vol] 2.09 mg/dL High 0.70-1.30 [facility] Comment on above: Order Comment: No: D o not add to previous draw Performed By: #### 3 0313 #### [facility] [address] [place] [address], [facility] EGFR 33 ml/min/1.73sq m Abnormal >60 [facility] Comment on above: Order Comment: No: D o not add to previous draw Result Comment: [facility]'s estimated glomerular filtration rate (eGFR) will no [...] individuals. Performed By: #### 3 0313 #### [facility] [address] [place] [id number], [facility] Glucose [Mass/Vol] 96 mg/dL Normal 70-100 [facility] Comment on above: Order Comment: No: D o not add to previous draw Performed By: #### 3 0313 #### [facility] [address] [place] [address], [facility] Potassium [Moles/Vol] 4.0 mmol/L Normal 3.5-5.1 [facility] Comment on above: Order Comment: No: D o not add to previous draw Performed By: #### 3 0313 #### [facility] [address] [place] [address], [facility] Sodium [Moles/Vol] 138 mmol/L Normal 136-145 [facility] Comment on above: Order Comment: No: D o not add to previous draw Performed By: #### 3 0313 #### [facility] [address] [place] [address], [facility] Urea nitrogen [Mass/Vol] 48 mg/dL High 7-25 [facility] Comment on above: Order Comment: No: D o not add to previous draw Performed By: #### 3 0313 #### [facility] [address] CBC COMPLETE BLOOD COUNTon 0 - Erythrocyte distribution width (RBC) [Ratio] 20.6 % High 11.5-15.0 [facility] Comment on above: Order Comment: No: D o not add to previous draw Performed By: #### 5 0608 ####[facility] [facility] Hematocrit (Bld) [Volume fraction] 31.0 % Low 39.0-50.0 [facility] Comment on above: Order Comment: No: D o not add to previous draw Performed By: #### 5 0608 ####[facility] [facility] [place] [address], [facility] Hemoglobin (Bld) [Mass/Vol] 8.9 g/dL Low 13.0-17.0 [facility] Comment on above: Order Comment: No: D o not add to previous draw Performed By: #### 5 0608 ####[facility] [facility].[address] MCH (RBC) [Entitic mass] 23.1 pg Low 27.0-33.0 [facility] Comment on above: Order Comment: No: D o not add to previous draw Performed By: #### 5 0608 ####[facility] [facility] [place] [place] [address], [facility] MCHC (RBC) [Mass/Vol] 28.7 g/dL Low 32.0-35.0 [facility] Comment on above: Order Comment: No: D o not add to previous draw Performed By: #### 5 0608 ####[address] [place] [address], [facility] MCV (RBC) [Entitic vol] 80.5 fL Low 82.0-98.0 [facility] Comment on above: Order Comment: No: D o not add to previous draw Performed By: #### 5 0608 ####[address] Nucleated RBC/100 WBC (Bld) [Ratio] 0 % Normal 0-0 [facility] Comment on above: Order Comment: No: D o not add to previous draw Performed By: #### 5 0608 ####[place] [address] [facility].[address] PLAT CNT 145 10*3/uL Low 150-400 [facility] Comment on above: Order Comment: No: D o not add to previous draw Performed By: #### 5 0608 ####[address] [place] [address], [facility] RBC (Bld) [#/Vol] 3.85 10*6/uL Low 4.20-5.70 [facility] Comment on above: Order Comment: No: D o not add to previous draw Performed By: #### 5 0608 ####[address] [place] [address], [facility] WBC (Bld) [#/Vol] 5.00 10*3/uL Normal 4.00-10.60 [facility] Comment on above: Order Comment: No: D o not add to previous draw Performed By: #### 5 0608 ####[facility] [place] [address], [facility] COOXIMETRYon 04-29-2022 COHB 3 % Normal [facility] Comment on above: Performed By: #### 5 0103 #### [facility] [address] [place] [address], [facility] METHB 1 % Normal [facility] Comment on above: Performed By: #### 5 0103 #### [facility] [address] [place] [address], [facility] Oxygen saturation in Blood 74.0 % Normal 65.0-75.0 [facility] Comment on above: Performed By: #### 5 0103 #### [facility] [address] [place] [address], [facility] THB 8.4 g/dL Normal [facility] Comment on above: Performed By: #### 5 0103 #### [facility] [address] [place] [address], [facility] MAGNESIUM BLOODon 04-29-2022 Magnesium [Mass/Vol] 2.3 mg/dL Normal 1.9-2.7 [facility] Comment on above: Order Comment: No: D o not add to previous draw Performed By: #### 3 0313 #### [facility] [address] [place] [address], [facility] BASIC METABOLIC PANELon 04-09 Calcium [Mass/Vol] 8.3 mg/dL Low 8.6-10.3 [facility] Comment on above: Order Comment: No: D o not add to previous draw Performed By: #### 0 0071, 15590, 79924 ####[facility] [place] [address], [facility] Chloride [Moles/Vol] 100 mmol/L Normal 98-107 [facility] Comment on above: Order Comment: No: D o not add to previous draw Performed By: #### 0 0071, 20894, 77958 ####[facility] [place] [address], [facility] CO2 [Moles/Vol] 29 mmol/L Normal 21-31 [facility] Comment on above: Order Comment: No: D o not add to previous draw Performed By: #### 0 0071, 63348, 32973 ####[facility] [place] [address], [facility] Creatinine [Mass/Vol] 2.51 mg/dL High 0.70-1.30 [facility] Comment on above: Order Comment: No: D o not add to previous draw Performed By: #### 0 0071, 16537, 62951 ####[facility] [facility].[address] EGFR 27 ml/min/1.73sq m Abnormal >60 [facility] Comment on above: Order Comment: No: D o not add to previous draw Result Comment: [facility]'s estimated glomerular filtration rate (eGFR) will no [...] of individuals. Performed By: #### 0 0071, 71475, 84226 ####[facility] [id number], [facility] Glucose [Mass/Vol] 98 mg/dL Normal 70-100 [facility] Comment on above: Order Comment: No: D o not add to previous draw Performed By: #### 0 0071, 80189, 33912 ####[facility] Potassium [Moles/Vol] 3.9 mmol/L Normal 3.5-5.1 [facility] Comment on above: Order Comment: No: D o not add to previous draw Performed By: #### 0 0071, 29349, 64840 ####[facility] Sodium [Moles/Vol] 138 mmol/L Normal 136-145 [facility] Comment on above: Order Comment: No: D o not add to previous draw Performed By: #### 0 1, 83309, 78584 ####[facility] Urea nitrogen [Mass/Vol] 55 mg/dL High 7-25 [facility] Comment on above: Order Comment: No: D o not add to previous draw Performed By: #### 0 0071, 88085, 09058 ####[facility] [facility] CBC COMPLETE BLOOD COUNTon 0 8- Erythrocyte distribution width (RBC) [Ratio] 20.2 % High 11.5-15.0 [facility] Comment on above: Order Comment: No: D o not add to previous draw Performed By: #### 5 0608 ####[facility] Hematocrit (Bld) [Volume fraction] 28.9 % Low 39.0-50.0 [facility] Comment on above: Order Comment: No: D o not add to previous draw Performed By: #### 5 0608 ####[facility] Hemoglobin (Bld) [Mass/Vol] 8.7 g/dL Low 13.0-17.0 [facility] Comment on above: Order Comment: No: D o not add to previous draw Performed By: #### 5 0608 ####[facility] MCH (RBC) [Entitic mass] 24.0 pg Low 27.0-33.0 [facility] Comment on above: Order Comment: No: D o not add to previous draw Performed By: #### 5 0608 ####[facility] MCHC (RBC) [Mass/Vol] 30.1 g/dL Low 32.0-35.0 [facility] Comment on above: Order Comment: No: D o not add to previous draw Performed By: #### 5 0608 ####[facility] MCV (RBC) [Entitic vol] 79.6 fL Low 82.0-98.0 [facility] Comment on above: Order Comment: No: D o not add to previous draw Performed By: #### 5 0608 ####[place] [address] [address] Nucleated RBC/100 WBC (Bld) [Ratio] 0 % Normal 0-0 [facility] Comment on above: Order Comment: No: D o not add to previous draw Performed By: #### 5 0608 ####[facility] PLAT CNT 162 10*3/uL Normal 150-400 [facility] Comment on above: Order Comment: No: D o not add to previous draw Performed By: #### 5 0608 ####[address] RBC (Bld) [#/Vol] 3.63 10*6/uL Low 4.20-5.70 [facility] Comment on above: Order Comment: No: D o not add to previous draw Performed By: #### 5 0608 ####[facility] [place] [address], [facility] WBC (Bld) [#/Vol] 6.21 10*3/uL Normal 4.00-10.60 [facility] Comment on above: Order Comment: No: D o not add to previous draw Performed By: #### 5 0608 ####[facility] [facility].[address] LIPID PROFILEon 04-28-2022 Cholesterol [Mass/Vol] 92 mg/dL Low 120-200 Th e [facility] Comment on above: Order Comment: Yes: Add to Previous draw if able Result Comment: CHOL ESTEROL REFERENCE RANGE: 20 YEARS AND OLDER CARDIOVASCULAR RISK Less than 200 mg/dl Low Risk 200 to 239 mg/dl Borderline Risk 240 mg/dl and greater High Risk Performed By: #### 0 0071, 21404, 19594 ####[facility] Cholesterol in HDL [Mass/Vol] 37 mg/dL Normal 23-92 [facility] Comment on above: Order Comment: Yes: Add to Previous draw if able Result Comment: Slig ht variation in normal range could be due to gender and/or age. HDL CHOLESTEROL REFERENCE RANGE: 20 years and older Cardiovascular Risk > or =60 mg/dL Desirable 40 TO 59 mg/dL Low Risk <40 mg/dL High Risk Performed By: #### 0 0071, 71285, 37325 ####[facility] [facility].[address] Cholesterol in LDL [Mass/Vol] 47 mg/dL Normal 0-130 [facility] Comment on above: Order Comment: Yes: Add to Previous draw if able Result Comment: LDL IS A CALCULATION LDL IS ONLY VALID IF THE TRIG IS LESS THAN 400. Performed By: #### 0 0071, 92112, 29998 ####[facility] Cholesterol.total/Chol esterol in HDL [Mass ratio] 2.5 {ratio} Normal .0-4.5 [facility] Comment on above: Order Comment: Yes: Add to Previous draw if able Performed By: #### 0 0071, , 03889 ####[facility] NON-HDL CHOLESTEROL 55 mg/dL Normal [facility] Comment on above: Order Comment: Yes: Add to Previous draw if able Performed By: #### 0 0071, , 92534 ####[facility] Triglyceride [Mass/Vol] 40 mg/dL Normal 40-149 [facility] Comment on above: Order Comment: Yes: Add to Previous draw if able Result Comment: TRIG LYCERIDE REFERENCE RANGE: 20 YEARS AND OLDER CARDIOVASCULAR RISK LESS THAN 150 mg/dl LOW RISK 150 TO 199 mg/dl BORDERLINE RISK 200 mg/dl AND GREATER HIGH RISK Performed By: #### 0 0071, , 44636 ####[facility] VLDL CHOL 8 mg/dL Normal 0-40 [facility] Comment on above: Order Comment: Yes: Add to Previous draw if able Performed By: #### 0 0071, , 99252 ####[facility] [place] [address], [facility] MAGNESIUM BLOODon 04-28-2022 Magnesium [Mass/Vol] 2.4 mg/dL Normal 1.9-2.7 [facility] Comment on above: Order Comment: No: D o not add to previous draw Performed By: #### 0 0071, , 62062 ####[facility] [place] [address], [facility] BASIC METABOLIC PANELon 08-2 0-2021 Calcium [Mass/Vol] 8.4 mg/dL Low 8.6-10.3 [facility] Comment on above: Order Comment: No: D o not add to previous draw Performed By: #### 7 0207 #### [facility] [address] [place] [address], [place] Chloride [Moles/Vol] 100 mmol/L Normal 98-107 [facility] Comment on above: Order Comment: No: D o not add to previous draw Performed By: #### 7 0207 #### [facility] [address] [place] [address], [facility] CO2 [Moles/Vol] 27 mmol/L Normal 21-31 [facility] Comment on above: Order Comment: No: D o not add to previous draw Performed By: #### 7 0207 #### [facility] [address] [place] [address], [facility] Creatinine [Mass/Vol] 2.46 mg/dL High 0.70-1.30 [facility] Comment on above: Order Comment: No: D o not add to previous draw Performed By: #### 7 0207 #### [facility] [address] [place] [address], [facility] EGFR 27 ml/min/1.73sq m Abnormal >60 [facility] Comment on above: Order Comment: No: D o not add to previous draw Result Comment: [facility]'s estimated glomerular filtration rate (eGFR) will no [...] individuals. Performed By: #### 7 0207 #### [facility] [address] [place] [address], [place] Glucose [Mass/Vol] 96 mg/dL Normal 70-100 [facility] Comment on above: Order Comment: No: D o not add to previous draw Performed By: #### 7 0207 #### [facility] [address] [place] [address], [place] Potassium [Moles/Vol] 3.8 mmol/L Normal 3.5-5.1 [facility] Comment on above: Order Comment: No: D o not add to previous draw Performed By: #### 7 0207 #### [facility] [address] [place] [address], [place] Sodium [Moles/Vol] 136 mmol/L Normal 136-145 [facility] Comment on above: Order Comment: No: D o not add to previous draw Performed By: #### 7 0207 #### [facility] [address] [place] [address], [place] Urea nitrogen [Mass/Vol] 57 mg/dL High 7-25 [facility] Comment on above: Order Comment: No: D o not add to previous draw Performed By: #### 7 0207 #### [facility] [address] [place] [address], [place] BASIC METABOLIC PANELon 08- Calcium [Mass/Vol] 8.7 mg/dL Normal 8.6-10.3 [facility] Comment on above: Order Comment: No: D o not add to previous draw Performed By: #### 3 0313 #### [facility] [address] [place] [address], [place] Chloride [Moles/Vol] 100 mmol/L Normal 98-107 [facility] Comment on above: Order Comment: No: D o not add to previous draw Performed By: #### 3 0313 #### [facility] [address] [place] [address], [facility] CO2 [Moles/Vol] 26 mmol/L Normal 21-31 [facility] Comment on above: Order Comment: No: D o not add to previous draw Performed By: #### 3 0313 #### [facility] [address] [place] [address], [facility] Creatinine [Mass/Vol] 2.63 mg/dL High 0.70-1.30 [facility] Comment on above: Order Comment: No: D o not add to previous draw Performed By: #### 3 0313 #### [facility] [address] [place] [address], [facility] EGFR 25 ml/min/1.73sq m Abnormal >60 [facility] Comment on above: Order Comment: No: D o not add to previous draw Result Comment: [facility]'s estimated glomerular filtration rate (eGFR) will no [...] individuals. Performed By: #### 3 0313 #### [facility] [address] [place] [address], [facility] Glucose [Mass/Vol] 101 mg/dL High 70-100 [facility] Comment on above: Order Comment: No: D o not add to previous draw Performed By: #### 3 0313 #### [facility] [address] [place] [address], [facility] Potassium [Moles/Vol] 4.3 mmol/L Normal 3.5-5.1 [facility] Comment on above: Order Comment: No: D o not add to previous draw Performed By: #### 3 0313 #### [facility] [address] [facility] [address], [facility] Sodium [Moles/Vol] 136 mmol/L Normal 136-145 [facility] Comment on above: Order Comment: No: D o not add to previous draw Performed By: #### 3 3 #### [facility] [address] [facility] [place] [address], [facility] Urea nitrogen [Mass/Vol] 57 mg/dL High 7-25 [facility] Comment on above: Order Comment: No: D o not add to previous draw Performed By: #### 3 3 #### [facility] [address] [facility] [place] [address], [facility] CBC W/DIFFon 04-26-2022 ABS IMM GRANS 0.0 10*3/uL Normal 0.0-0.2 [facility] Comment on above: Order Comment: No: D o not add to previous draw Performed By: #### 5 0103 #### [facility] [address] [facility] [place] [address], [facility] ABS NEUTROPHILS 5.2 10*3/uL Normal 1.6-7.6 [facility] Comment on above: Order Comment: No: D o not add to previous draw Performed By: #### 5 3 #### [facility] [address] [facility] [place] [address], [facility] Basophils (Bld) [#/Vol] 0.0 10*3/uL Normal 0.0-0.2 [facility] Comment on above: Order Comment: No: D o not add to previous draw Performed By: #### 5 0103 #### [facility] [address] [facility] [place] [address], [facility] Basophils/100 WBC (Bld) 0.6 % Normal 0.0-1.0 [facility] Comment on above: Order Comment: No: D o not add to previous draw Performed By: #### 5 0103 #### [facility] [address] Eosinophils (Bld) [#/Vol] 0.2 10*3/uL Normal 0.0-0.5 [facility] Comment on above: Order Comment: No: D o not add to previous draw Performed By: #### 5 0103 #### [facility] [address] [place] [address], [facility] Eosinophils/100 WBC (Bld) 3.4 % Normal 0.0-6.0 [facility] Comment on above: Order Comment: No: D o not add to previous draw Performed By: #### 5 0103 #### [facility] [address] [facility]. [address] Erythrocyte distribution width (RBC) [Ratio] 19.9 % High 11.5-15.0 [facility] Comment on above: Order Comment: No: D o not add to previous draw Performed By: #### 5 0103 #### [facility] [address] [facility] Hematocrit (Bld) [Volume fraction] 30.2 % Low 39.0-50.0 [facility] Comment on above: Order Comment: No: D o not add to previous draw Performed By: #### 5 0103 #### [facility] [address] [facility]. [address] Hemoglobin (Bld) [Mass/Vol] 9.0 g/dL Low 13.0-17.0 [facility] Comment on above: Order Comment: No: D o not add to previous draw Performed By: #### 5 0103 #### [facility] [address] [facility]. [place] [address], [facility] IMMATURE GRANS 0.2 % Normal 0.0-1.0 [facility] Comment on above: Order Comment: No: D o not add to previous draw Performed By: #### 5 0103 #### [facility] [address] [place] [address], [facility] Lymphocytes (Bld) [#/Vol] 0.4 10*3/uL Low 1.2-4.0 [facility] Comment on above: Order Comment: No: D o not add to previous draw Performed By: #### 5 0103 #### [facility] [address] [place] [address], [facility] Lymphocytes/100 WBC (Bld) 6.6 % Low 20.0-45.0 [facility] Comment on above: Order Comment: No: D o not add to previous draw Performed By: #### 5 0103 #### [facility] [address] [place] [address], [facility] MCH (RBC) [Entitic mass] 23.4 pg Low 27.0-33.0 [facility] Comment on above: Order Comment: No: D o not add to previous draw Performed By: #### 5 0103 #### [facility] [address] [place] [address], [facility] MCHC (RBC) [Mass/Vol] 29.8 g/dL Low 32.0-35.0 [facility] Comment on above: Order Comment: No: D o not add to previous draw Performed By: #### 5 0103 #### [facility] [address] [place] [address], [facility] MCV (RBC) [Entitic vol] 78.4 fL Low 82.0-98.0 [facility] Comment on above: Order Comment: No: D o not add to previous draw Performed By: #### 5 0103 #### [facility] [address] [place] [address], [facility] Monocytes (Bld) [#/Vol] 0.7 10*3/uL Normal 0.1-1.0 [facility] Comment on above: Order Comment: No: D o not add to previous draw Performed By: #### 5 0103 #### [facility] [address] [facility] [place] [address], [facility] MONOS 10.3 % Normal 5.0-12.0 [facility] Comment on above: Order Comment: No: D o not add to previous draw Performed By: #### 5 0103 #### [facility] [address] [place] [address], [facility] Neutrophils/100 WBC (Bld) 78.9 % High 40.0-72.0 [facility] Comment on above: Order Comment: No: D o not add to previous draw Performed By: #### 5 0103 #### [facility] [address] [place] [address], [facility] Nucleated RBC/100 WBC (Bld) [Ratio] 0 % Normal 0-0 [facility] Comment on above: Order Comment: No: D o not add to previous draw Performed By: #### 5 0103 #### [facility] [address] [place] [address], [place] PLAT CNT 196 10*3/uL Normal 150-400 [facility] Comment on above: Order Comment: No: D o not add to previous draw Performed By: #### 5 0103 #### [facility] [address] [place] [address], [facility] RBC (Bld) [#/Vol] 3.85 10*6/uL Low 4.20-5.70 [facility] Comment on above: Order Comment: No: D o not add to previous draw Performed By: #### 5 0103 #### [facility] [address] [place] [address], [place] WBC (Bld) [#/Vol] 6.52 10*3/uL Normal 4.00-10.60 [facility] Comment on above: Order Comment: No: D o not add to previous draw Performed By: #### 5 0103 #### [facility] [address] [place] [address], [facility] HEMOGLOBIN A1Con 04-26-2022 Glucose [Moles/Vol] 111 mmol/L Normal [facility] Comment on above: Order Comment: Check Pacemaker/AICD Lead Position, Chest X-ray PA \EANDE\ LAT in Dept ;DO NOT lift affected arm above shoulder. S/P pacemaker/ICD implant. Verify lead placement Performed By: #### 3 1791 ####[facility] [facility].[address] HbA1c (Bld) [Mass fraction] 5.5 % Normal 4.0-6.0 [facility] Comment on above: Order Comment: Check Pacemaker/AICD Lead Position, Chest X-ray PA \EANDE\ LAT in Dept ;DO NOT lift affected arm above shoulder. S/P pacemaker/ICD implant. Verify lead placement Performed By: #### 3 1791 ####[facility] [facility].[address] MAGNESIUM BLOODon 04-26-2022 Magnesium [Mass/Vol] 2.6 mg/dL Normal 1.9-2.7 [facility] Comment on above: Order Comment: No: D o not add to previous draw Performed By: #### 3 0313 #### [facility] [address] [facility]. [address] APTTon 04-25-2022 aPTT Coag (Bld) [Time] 49.8 s High 25.0-35.0 Th e [facility] Comment on above: Order Comment: No: D [...] PURPOSE. Performed By: #### 5 0103 #### [facility] [address] BASIC METABOLIC PANELon 04-08 Calcium [Mass/Vol] 8.8 mg/dL Normal 8.6-10.3 [facility] Comment on above: Order Comment: No: D o not add to previous draw Performed By: #### 3 2044 #### [facility] [address] [place] [address], [facility] Chloride [Moles/Vol] 100 mmol/L Normal 98-107 [facility] Comment on above: Order Comment: No: D o not add to previous draw Performed By: #### 3 2044 #### [facility] [address] [place] [address], [facility] CO2 [Moles/Vol] 27 mmol/L Normal 21-31 [facility] Comment on above: Order Comment: No: D o not add to previous draw Performed By: #### 3 2044 #### [facility] [address] [place] [address], [facility] Creatinine [Mass/Vol] 2.82 mg/dL High 0.70-1.30 [facility] Comment on above: Order Comment: No: D o not add to previous draw Performed By: #### 3 2044 #### [facility] [address] [place] [address], [facility] EGFR 23 ml/min/1.73sq m Abnormal >60 [facility] Comment on above: Order Comment: No: D o not add to previous draw Result Comment: [facility]'s estimated glomerular filtration rate (eGFR) will no [...] individuals. Performed By: #### 3 2044 #### [facility] [address] [facility] [address], [facility] Glucose [Mass/Vol] 114 mg/dL High 70-100 [facility] Comment on above: Order Comment: No: D o not add to previous draw Performed By: #### 3 2044 #### [facility] [address] [place] [address], [facility] Potassium [Moles/Vol] 4.4 mmol/L Normal 3.5-5.1 [facility] Comment on above: Order Comment: No: D o not add to previous draw Performed By: #### 3 2044 #### [facility] [address] [place] [address], [facility] Sodium [Moles/Vol] 137 mmol/L Normal 136-145 [facility] Comment on above: Order Comment: No: D o not add to previous draw Performed By: #### 3 2044 #### [facility] [address] [place] [id number], [facility] Urea nitrogen [Mass/Vol] 61 mg/dL High 7-25 [facility] Comment on above: Order Comment: No: D o not add to previous draw Performed By: #### 3 2044 #### [facility] [address] [place] [address], [facility] BNP (B-TYPE NATRIURETIC PEPT ANH)on 04-25-2022 Natriuretic peptide B (Bld) [Mass/Vol] 1813 pg/mL High 0-100 [facility] Comment on above: Order Comment: Yes: Add to Previous draw if able Result Comment: Give n the appropriate clinical setting a BNP result of >100 pg/mL indicates congestive heart failure. Performed By: #### 3 2044 #### [facility] [address] [address], [facility] C REACTIVE PROTEINon 022 CRP [Mass/Vol] 17.2 mg/L High 0.0-7.0 [facility] Comment on above: Order Comment: No: D o not add to previous draw Performed By: #### 5 3 #### [facility] [address] [place] [address], [facility] CBC W/DIFFon 04-25-2022 ABS IMM GRANS 0.0 10*3/uL Normal 0.0-0.2 [facility] Comment on above: Performed By: #### 5 0103 #### [facility] [address] [place] [address], [facility] ABS NEUTROPHILS 5.4 10*3/uL Normal 1.6-7.6 [facility] Comment on above: Performed By: #### 5 0103 #### [facility] [address] [place] [address], [facility] Basophils (Bld) [#/Vol] 0.0 10*3/uL Normal 0.0-0.2 [facility] Comment on above: Performed By: #### 5 3 #### [facility] [address] [place] [address], [facility] Basophils/100 WBC (Bld) 0.6 % Normal 0.0-1.0 [facility] Comment on above: Performed By: #### 5 3 #### [facility] [address] [place] [address], [facility] Eosinophils (Bld) [#/Vol] 0.2 10*3/uL Normal 0.0-0.5 [facility] Comment on above: Performed By: #### 5 0103 #### [facility] [address] [place] [address], [facility] Eosinophils/100 WBC (Bld) 2.5 % Normal 0.0-6.0 [facility] Comment on above: Performed By: #### 5 3 #### [facility] [address] Erythrocyte distribution width (RBC) [Ratio] 19.9 % High 11.5-15.0 [facility] Comment on above: Performed By: #### 5 0103 #### [facility] [address] [facility]. [address] Hematocrit (Bld) [Volume fraction] 31.6 % Low 39.0-50.0 [facility] Comment on above: Performed By: #### 3 #### [facility] [address] [facility]. [address] Hemoglobin (Bld) [Mass/Vol] 9.3 g/dL Low 13.0-17.0 [facility] Comment on above: Performed By: #### 3 #### [facility] [address] IMMATURE GRANS 0.2 % Normal 0.0-1.0 [facility] Comment on above: Performed By: #### 102 #### [facility] [address] Lymphocytes (Bld) [#/Vol] 0.3 10*3/uL Low 1.2-4.0 [facility] Comment on above: Performed By: #### 5 3 #### [facility] [address] Lymphocytes/100 WBC (Bld) 4.4 % Low 20.0-45.0 [facility] Comment on above: Performed By: #### 5 3 #### [facility] [address] MCH (RBC) [Entitic mass] 23.1 pg Low 27.0-33.0 [facility] Comment on above: Performed By: #### 3 #### [facility] [address] MCHC (RBC) [Mass/Vol] 29.4 g/dL Low 32.0-35.0 [facility] Comment on above: Performed By: #### 5 0103 #### [facility] [address] [place] [address], [facility] MCV (RBC) [Entitic vol] 78.6 fL Low 82.0-98.0 [facility] Comment on above: Performed By: #### 5 0103 #### [facility] [address] [place] [id number], [facility] Monocytes (Bld) [#/Vol] 0.6 10*3/uL Normal 0.1-1.0 [facility] Comment on above: Performed By: #### 3 #### [facility] [address] [facility] [place] [address], [facility] MONOS 8.9 % Normal 5.0-12.0 [facility] Comment on above: Performed By: #### 102 #### [facility] [address] [place] [address], [facility] Neutrophils/100 WBC (Bld) 83.4 % High 40.0-72.0 [facility] Comment on above: Performed By: #### 102 #### [facility] [address] [facility] [place] [address], [facility] Nucleated RBC/100 WBC (Bld) [Ratio] 0 % Normal 0-0 [facility] Comment on above: Performed By: #### 5 3 #### [facility] [address] [address], [facility] PLAT CNT 191 10*3/uL Normal 150-400 [facility] Comment on above: Performed By: #### 3 #### [facility] [address] [facility] [place] [address], [facility] RBC (Bld) [#/Vol] 4.02 10*6/uL Low 4.20-5.70 [facility] Comment on above: Performed By: #### 3 #### [facility] [address] WBC (Bld) [#/Vol] 6.43 10*3/uL Normal 4.00-10.60 [facility] Comment on above: Performed By: #### 5 0103 #### [facility] [address] [place] [address], [facility] COMPLEMENT 3on 04-25-2022 COMPLEMENT 3 104 mg/dL Normal 79-152 [facility] Comment on above: Order Comment: No: D o not add to previous draw Performed By: #### 5 0103 #### [facility] [address] [facility] [place] [address], [facility] COMPLEMENT 4on 04-25-2022 COMPLEMENT 4 23 mg/dL Normal 16-38 [facility] Comment on above: Order Comment: No: D o not add to previous draw Performed By: #### 5 0103 #### [facility] [address] [facility] [facility] CPKon 04-25-2022 CK [Catalytic activity/Vol] 23 U/L Low 30-223 [facility] Comment on above: Order Comment: No: D o not add to previous draw Performed By: #### 7 0207 #### [facility] [address] [place] [address], [facility] CREATININE URINE RANDOMon Creatinine (U) [Mass/Vol] 104.0 mg/dL Normal [facility] Comment on above: Order Comment: Check Pacemaker/AICD Lead Position, Chest X-ray PA \EANDE\ LAT in Dept ;DO NOT lift affected arm above shoulder. S/P pacemaker/ICD implant. Verify lead placement Result Comment: Ther e are no established reference values for random urine specimens Performed By: #### 4 5419, [id number] ####[facility] [place] [address], [facility] FERRITINon 04-25-2022 Ferritin [Mass/Vol] 50 ng/mL Normal 24-336 [facility] Comment on above: Order Comment: No: D o not add to previous draw Performed By: #### 7 0207 #### [facility] [address] [place] [address], [facility] HEPATITIS B CORE ANTIBODYon 04-25-2022 HEP B CORE AB Non-Reactive Normal NONREACTIVE [facility] Comment on above: Order Comment: No: D o not add to previous draw Performed By: #### 7 0207 #### [facility] [address] [place] [address], [facility] HEPATITIS C ANTIBODYon 04-25 ANTI-HCV Non-Reactive Normal NONREACTIVE [facility] Comment on above: Order Comment: No: D o not add to previous draw Performed By: #### 7 0207 #### [facility] [address] [place] [address], [facility] IMMUNOFIXATION BLOODon 04-25 IgA [Mass/Vol] 733 mg/dL High 60-413 [facility] Comment on above: Performed By: #### 5 0103 #### [facility] [address] [place] [address], [facility] IgG [Mass/Vol] 1330 mg/dL Normal 591-1540 [facility] Comment on above: Performed By: #### 5 0103 #### [facility] [address] [place] [address], [facility] IgM [Mass/Vol] 365 mg/dL High 54-285 [facility] Comment on above: Performed By: #### 5 0103 #### [facility] [address] [place] [address], [facility] IMMUNOFIXATION Normal [facility] Comment on above: Result Comment: Seru m immunofixation reveals a monoclonal [place] M gammopathy. SEE SEPARATE REPORT Performed By: #### 5 0103 #### [facility] [address] [place] [address], [facility] KAPPA LIGHT CHN See [place] report. Normal 0.33-1.94 [facility] Comment on above: Performed By: #### 5 3 #### [facility] [address] [place] [address], [facility] KAPPA/LAMDBA RATIO See [place] report. Normal 0.26-1.65 Th [facility] Comment on above: Result Comment: For patients with renal impairment, use a kappa/lambda ratio of 0.37-3.10 Performed By: #### 5 102 #### [facility] [address] [place] [address], [place] LAMBDA LIGHT CHN See [place] report. Normal 0.57-2.63 [facility] Comment on above: Performed By: #### 5 102 #### [facility] [address] [place] [address], [facility] LIVER BATTERYon 04-25-2022 Albumin [Mass/Vol] 3.3 g/dL Low 3.5-5.7 [facility] Comment on above: Order Comment: No: D o not add to previous draw Performed By: #### 3 2044 #### [facility] [address] [place] [address], [facility] ALKALINE PHOSPH 78 IU/L Normal 34-104 [facility] Comment on above: Order Comment: No: D o not add to previous draw Performed By: #### 3 2044 #### [facility] [address] [place] [address], [facility] ALT [Catalytic activity/Vol] 15 U/L Normal 7-52 [facility] Comment on above: Order Comment: No: D o not add to previous draw Performed By: #### 3 2044 #### [facility] [address] [place] [address], [place] AST [Catalytic activity/Vol] 16 U/L Normal 13-39 [facility] Comment on above: Order Comment: No: D o not add to previous draw Performed By: #### 3 2044 #### [facility] [address] [place] [address], [facility] Bilirubin [Mass/Vol] 1.2 mg/dL High 0.3-1.0 [facility] Comment on above: Order Comment: No: D o not add to previous draw Performed By: #### 3 2044 #### [facility] [address] [place] [address], [facility] Bilirubin.direct [Mass/Vol] 0.4 mg/dL High 0.0-0.2 [facility] Comment on above: Order Comment: No: D o not add to previous draw Performed By: #### 3 2044 #### [facility] [address] [place] [address], [facility] Protein [Mass/Vol] 6.8 g/dL Normal 6.0-8.3 [facility] Comment on above: Order Comment: No: D o not add to previous draw Performed By: #### 3 2044 #### [facility] [address] [place] [address], [facility] MAGNESIUM BLOODon 04-25-2022 Magnesium [Mass/Vol] 2.7 mg/dL Normal 1.9-2.7 [facility] Comment on above: Order Comment: No: D o not add to previous draw Performed By: #### 3 2044 #### [facility] [address] [place] [address], [facility] PHOSPHORUS BLOODon Phosphate [Mass/Vol] 3.7 mg/dL Normal 2.5-5.0 [facility] Comment on above: Order Comment: No: D o not add to previous draw Performed By: #### 7 7 #### [facility] [address] [place] [id number], [facility] POC SARS COV2 ANTIGEN NEGATI VEon 04-25-2022 POC SARS COV2 ANTIGEN NEG Negative Normal NEGATIVE [facility] Comment on above: Result Comment: Nega tive [...] antigen from SARS-CoV-2 in direct nasopharyngeal swab (HAND BOX FOLDER) specimens from individuals who are suspected of [...] of Accreditation. Performed By: #### 3 4 ####[facility] [place] [address], [facility] PROTEIN ELECT Marcos 04-25-2022 Protein [Mass/Vol] 6.9 g/dL Normal 6.0-8.3 [facility] Comment on above: Order Comment: No: D o not add to previous draw Performed By: #### 7 0207 #### [facility] [address] [place] [address], [facility] Protein [Mass/Vol] 0.20 g/dL High 0.00-0.00 [facility] Comment on above: Order Comment: No: D o not add to previous draw Performed By: #### 7 0207 #### [facility] [address] [place] [id number], [facility] PROTEIN ELECT Normal [facility] Comment on above: Order Comment: No: D o not add to previous draw Result Comment: The abnormal band in the gamma globulin region suggests monoclonal gammopathy. SEE SEPARATE REPORT Performed By: #### 7 0207 #### [facility] [address] [facility] [place] [address], [facility] PROTEIN ELECT URon 2 PROTEIN ELECT No abnormal bands se en. SEE SEPARATE REPORT Normal [facility] Comment on above: Order Comment: Check Pacemaker/AICD Lead Position, Chest X-ray PA \EANDE\ LAT in Dept ;DO NOT lift affected arm above shoulder. S/P pacemaker/ICD implant. Verify lead placement Performed By: #### 4 1918, [id number] ####[facility] [facility] [place] [address], [facility] U TOTAL PROTEIN 47.8 mg/dL Normal [facility] Comment on above: Order Comment: Check Pacemaker/AICD Lead Position, Chest X-ray PA \EANDE\ LAT in Dept ;DO NOT lift affected arm above shoulder. S/P pacemaker/ICD implant. Verify lead placement Result Comment: Ther e are no established reference values for random urine specimens Performed By: #### 4 1918, [id number] ####[facility] [facility] [place] [address], [facility] PROTHROMBIN TIMEon 2 INR Coag (PPP) [Relative time] 1.71 {INR} High 0.91-1.16 [facility] Comment on above: Order Comment: No: D [...] 1995;[id number]. Performed By: #### 5 0103 #### [facility] [address] [place] [address], [facility] PT Coag (PPP) [Time] 19.8 s High 12.3-14.8 [facility] Comment on above: Order Comment: No: D o not add to previous draw Result Comment: ALL RESULTS MUST BE INTERPRETED WITH RESPECT TO BLOOD DRAWING ARTIFACT OR DILUTION ERROR OF ANTICOAGULANT AT THE TIME OF SAMPLING. Performed By: #### 5 0103 #### [facility] [address] [place] [address], [facility] SEDIMENTATION RATEon 022 SED RATE 63 mm/hr High 0-10 [facility] Comment on above: Order Comment: No: D o not add to previous draw Performed By: #### 5 0608 #### [facility] [address] [place] [address], [facility] SERUM FREE LIGHT CHAINS ILon 04-25-2022 FREE KAPPA LIGHT CHAINS 14.36 mg/dL High 0.37-1.94 [facility] FREE KAPPA/LAMBDA RATIO 2.00 High 0.26-1.65 [facility] FREE LAMBDA LIGHT CHAINS 7.19 mg/dL High 0.57-2.63 [facility] [place] Normal [facility] Comment on above: Result Comment: Test Performed by [employer] [address] [place] [id number] - Released 05/02/2022 21:21 Result changed by IF on 05/02/2022 21:21. The previous value was Test Performed by [employer] [address] [place] [id number] [phone].. TIBC- INCLUDES IRONon 2021 FE SATURATION 9 % Low 20-50 [facility] Comment on above: Order Comment: No: D o not add to previous draw Performed By: #### 7 0207 #### [facility] [address] [facility] [place] [address], [facility] Iron [Mass/Vol] 31 ug/dL Low 50-212 [facility] Comment on above: Order Comment: No: D o not add to previous draw Performed By: #### 7 0207 #### [facility] [address] [facility] [place] [address], [facility] TIBC 349 mcg/dL Normal 250-450 [facility] Comment on above: Order Comment: No: D o not add to previous draw Performed By: #### 7 0207 #### [facility] [address] [facility] [place] [address], [facility] UIBC 318 mcg/dL Normal 155-355 [facility] Comment on above: Order Comment: No: D o not add to previous draw Performed By: #### 7 0207 #### [facility] [address] TROPONIN-Ion 04-25-2022 Troponin I.cardiac [Mass/Vol] 0.03 ng/mL Normal 0.00-0.04 [facility] Comment on above: Order Comment: No: D o not add to previous draw Result Comment: REFE RENCE RANGES: 0.00 - 0.04 ng/ml NORMAL 0.05 - 0.50 ng/ml INDETERMINATE > 0.50 ng/ml CONSISTENT WITH AN M.I. Performed By: #### 3 5 #### [facility] [address] US RENAL WITH BLADDERon 04-08 US RENAL WITH BLADDER [facility] Department of Radiology [address] [place] [address] [id number] Patient Name: MAN PATEL : 1950 Sex: M Age: Race: White Pt. Location: [id number] Patient Status: I Ordered Date: 04/25/2022 3:40:00 [...] cyst. Electronically signed: Joel Lambert. Transcribed by: [email or web address], User Resident: Electronically Signed by: TIFFANIE CASTILLO @ 05/08/2022 08:26 AM Normal [facility] Comment on above: Order Comment: R/O H ydronephrosis BNPon 04-24-2022 Natriuretic peptide B (Bld) [Mass/Vol] 14256.0 pg/mL Critically high <=900.0 [facility] Comment on above: Performed By: #### H STROPN, BNP, BMP ####[facility] Q[address]ntdmcvu[address] [place] [address]Dr. Elba Anthony CBC AUTO DIFFon 04-24-2022 BASO # 0.1 103/ul Normal 0.0-0.1 [facility] Comment on above: Performed By: #### C BC ####[facility] Qnaiaf[address]mj[address] [place], [place] [address]Dr. Elba Anthony Basophils/100 WBC (Bld) 0.8 % Normal 0.2-2.0 [facility] Comment on above: Performed By: #### C BC ####[facility] Phnctdgyzc8924[address] [place], [place] [address]Dr. Elba Anthony EO # 0.2 103/ul Normal 0.0-0.7 [facility] Comment on above: Performed By: #### C BC ####[facility] Swiijpsfof9627[address] [place], [place] [address]Dr. Elba Anthony Eosinophils/100 WBC (Bld) 3.0 % Normal 0.9-7.0 [facility] Comment on above: Performed By: #### C BC ####[facility] Bhctwzeicy517[address] [place], [place] [address]Dr. Elba Anthony Erythrocyte distribution width (RBC) [Ratio] 20.0 % Critically high 11.0-15.0 [facility] Comment on above: Performed By: #### C BC ####[facility] Fimucaknzp9[address] [place], [place] [address]DrLatoya Anthony Hematocrit (Bld) [Volume fraction] 32.7 % Critically low 42.0-54.0 [facility] Comment on above: Performed By: #### C BC ####[facility] Cyjhwcvmpi4537[address] [place], [place] [address]Dr. Elba Anthony Hemoglobin (Bld) [Mass/Vol] 9.7 g/dL Critically low 14.0-18.0 [facility] Comment on above: Performed By: #### C BC ####[facility] Ryihpreugk48[address] [place] [address]DrLatoya Dawnsiobhan Raj IG # 0.02 10e3/ul Normal 0.00-0.03 [facility] Comment on above: Performed By: #### C BC ####[facility] Xinxrzujko7451 [place] [address]DrLatoya Anthony IG % 0.3 % Normal 0.0-0.5 [facility] Comment on above: Performed By: #### C BC ####[facility] Dlinqixrjv4486 [place] [address]DrLatoya Anthony LYMPH # 0.3 103/ul Critically low 1.2-3.8 [facility] Comment on above: Performed By: #### C BC ####[facility] Ztsgoqljoz5716 [place] [address]DrLatoya Anthony Lymphocytes/100 WBC (Bld) 4.9 % Critically low 20.5-60.0 [facility] Comment on above: Performed By: #### C BC ####[facility] Bcvgezpnly7706 [place] [address]DrLatoya Anthony MANUAL DIFF REQ NO Normal [facility] Comment on above: Performed By: #### C BC ####[facility] Pqmadfxofk8400 [place] [address]DrLatoya Anthony MCH (RBC) [Entitic mass] 23.8 pg Critically low 25.9-34.0 [facility] Comment on above: Performed By: #### C BC ####[facility] Bnzxmeebca7504 [place] [address]DrLatoya Anthony MCHC (RBC) [Mass/Vol] 29.7 g/dL Critically low 29.9-35.2 [facility] Comment on above: Performed By: #### C BC ####[facility] Zffheekygt4272 [place] [address]DrLatoya Anthony MCV (RBC) [Entitic vol] 80.3 fL Normal 80.0-94.0 [facility] Comment on above: Performed By: #### C BC ####[facility] Prnipqlfpx3565 [place] [address]Dr. Elba Anthony MONO # 0.6 103/ul Normal 0.3-0.8 [facility] Comment on above: Performed By: #### C BC ####[facility] Wzpaffivms8874 [place] [address]Dr. Elba Anthony Monocytes/100 WBC (Bld) 9.6 % Normal 1.7-12.0 [facility] Comment on above: Performed By: #### C BC ####[facility] Mxvfbydjqo7414 [place] [address]Dr. Elba Anthony NEUT # 5.2 103/ul Normal 1.4-6.5 [facility] Comment on above: Performed By: #### C BC ####[facility] Iwafhilifz5[address] [place], [place] [address]Dr. Elba Anthony Neutrophils/100 WBC (Bld) 81.4 % Critically high 43.0-75.0 [facility] Comment on above: Performed By: #### C BC ####[facility] Xnkxcuncfw33[address] [place], [place] [address]Dr. Elba Anthony Platelet mean volume (Bld) [Entitic vol] 10.1 fL Normal 9.5-13.5 [facility] Comment on above: Performed By: #### C BC ####[facility] Shxdwzbtcu1568 [place] [address]Dr. Elba Anthony PLT 214 103/ul Normal 150-450 [facility] Comment on above: Performed By: #### C BC ####[facility] Ykowasgzdu9[address] [place] [id number]. Elba Anthony RBC 4.07 106/ul Critically low 4.70-6.10 [facility] Comment on above: Performed By: #### C BC ####[facility] Zxdmhifvcw6728 [place] [address]Dr. Elba Anthony WBC 6.4 103/ul Normal 4.0-11.0 [facility] Comment on above: Performed By: #### C BC ####[facility] Wwuibidqbq[address] [place], [place] [address]Dr. Elba Anthony Covid-19 PCR (CVDTB)on 04-08 SARS-CoV-2 (COVID-19) RNA ELIZABETH+probe Ql (Unsp spec) Not detected Normal NOT DETECTED [facility] Comment on above: Result Comment: When [...] for this test is supported by the Crew Foreman of Health and Human Service's declaration that [...] be used). Performed By: #### C VDTB ####[facility] Lcoltlviaj649[address] [place], [place] [address]Dr. Elba Anthony ER URINE PROFILEon 2 Bilirubin Ql (U) Negative Normal NEGATIVE [facility] Comment on above: Performed By: #### E RUR ####[facility] Flmlfsjotj7837[address] [place], [place] [address]Dr. Elba Anthony Clarity (U) CLEAR Normal CLEAR [facility] Comment on above: Performed By: #### E RUR ####[facility] Ghmorioapu367[address] [place], [place] [address]DrLatoya Anthony Color (U) LT. YELLOW Normal YELLOW [facility] Comment on above: Performed By: #### E RUR ####[facility] Qbowrobdcx375[address] [place], [place] [address]Dr. Elba Anthony ERUAHD A micrscopic examina tion will be performed if indicated. Normal [facility] Comment on above: Performed By: #### E RUR ####[facility] Chclzhisbd[address] [place], [place] [address]Dr. Elba Raj Glucose Ql (U) Negative Normal NEGATIVE [facility] Comment on above: Performed By: #### E RUR ####[facility] Zpnmhjawzy337[address] [place], [place] [address]Dr. Elba Raj Hemoglobin Ql (U) Negative Normal NEGATIVE [facility] Comment on above: Performed By: #### E RUR ####[facility] Fdyawjkwrd023[address] [place], [place] [address]Dr. Elba Anthony Ketones Ql (U) Negative Normal NEGATIVE [facility] Comment on above: Performed By: #### E RUR ####[facility] Vsbzxxzcmx2939[address] [place], [place] [address]Dr. Elba Anthony LEUKOCYTES Negative Normal NEGATIVE [facility] Comment on above: Performed By: #### E RUR ####[facility] Tddqbzhsia3625[address] [place], [place] [address]Dr. Elba Anthony Nitrite Ql (U) Negative Normal NEGATIVE [facility] Comment on above: Performed By: #### E RUR ####[facility] Jsgxsubkbt506[address] [place], [place] [address]Dr. Elba Anthony pH (U) 6.0 [pH] Normal 5-9 [facility] Comment on above: Performed By: #### E RUR ####[facility] Eqijhhchui0013[address] [place], [place] [address]Dr. Elba Anthony SPEC GRAVITY 1.010 Normal 1.005-<=1.02 5 [facility] Comment on above: Performed By: #### E RUR ####[facility] Jmptwuaery[address] [place], [place] [address]Dr. Elba Anthony UA PROTEIN Negative Normal NEGATIVE/ TRACE [facility] Comment on above: Performed By: #### E RUR ####[facility] Ibmlhtyqae543[address] [place], [place] [address]Dr. Elba Anthony UR MICRO IND NOT INDICATED Normal [facility] Comment on above: Performed By: #### E RUR ####[facility] Indglrxhpq7360 [place] [address]Dr. Nereydasiobhan Anthony Urobilinogen Qn (U) 2.0 {Caden'U}/dL Abnormal 0.2 - 1. 0 [facility] Comment on above: Performed By: #### E RUR ####[facility] Ffdklpbojv5[address] [place] [address]Dr. Nereydasiobhan Anthony PROF CHEM 8 (BAS METB)on Anion gap [Moles/Vol] 16.7 mmol/L Normal [facility] Comment on above: Performed By: #### H STROPN, BNP, BMP ####[facility] Tvrmkexglu79[address] [place], [place] [address]Dr. Elba Anthony Calcium [Mass/Vol] 9.2 mg/dL Normal 8.5-10.1 [facility] Comment on above: Performed By: #### H STROPN, BNP, BMP ####[facility] Yxxhfnuqro376[address] [place], [place] [address]Dr. Elba Anthony Chloride [Moles/Vol] 97 mmol/L Critically low 98-107 [facility] Comment on above: Performed By: #### H STROPN, BNP, BMP ####[facility] Ibumdxranu787[address] [place], [place] [address]Dr. Elba Anthony CO2 [Moles/Vol] 26.3 mmol/L Normal 21.0-32.0 [facility] Comment on above: Performed By: #### H STROPN, BNP, BMP ####[facility] Rapwrfsaqf3747 [place] [address]Dr. Elba Anthony Creatinine [Mass/Vol] 3.32 mg/dL Critically high 0.70-1.30 [facility] Comment on above: Performed By: #### H STROPN, BNP, BMP ####[facility] Obupngwajr[address] [place] [address]Dr. Elba Anthony EGFR-AF TUVALUAN 22 mL/min/1.73m2 Critically low >=60 [facility] Comment on above: Performed By: #### H STROPN, BNP, BMP ####[facility] Kmlngmqzhf3473 [place] [address]Dr. Elba Anthony EGFR-NON AF TUVALUAN 18 mL/min/1.73m2 Critically low >=60 [facility] Comment on above: Performed By: #### H STROPN, BNP, BMP ####[facility] Iahzxmlsis7231 [place] [address]Dr. Elba Anthony Glucose [Mass/Vol] 158 mg/dL Critically high 74-106 T [facility] Comment on above: Performed By: #### H STROPN, BNP, BMP ####[facility] Xyrgxjqnvf6845 [place] [address]Dr. Elba Anthony Potassium [Moles/Vol] 5.0 mmol/L Normal 3.5-5.1 [facility] Comment on above: Performed By: #### H STROPN, BNP, BMP ####[facility] Ldfwejxboe3328 [place] [address]Dr. Elba Anthony Sodium [Moles/Vol] 135 mmol/L Critically low 136-145 Th [facility] Comment on above: Performed By: #### H STROPN, BNP, BMP ####[facility] Cljjzieout8706 [place] [address]Dr. Elba Anthony Urea nitrogen [Mass/Vol] 67.0 mg/dL Critically high 7.0-18.0 [facility] Comment on above: Performed By: #### H STROPN, BNP, BMP ####[facility] Fhrtzludqd1392 [place] [address]Dr. Elba Anthony Urea nitrogen/Creatinine [Mass ratio] 20.2 mg/mg Normal [facility] Comment on above: Performed By: #### H STROPN, BNP, BMP ####[facility] Akqsamsduw[address] [place], [place] [address]Dr. Elba Anthony TROPONIN, HIGH SENSITIVITYon 04-24-2022 HSTROP 36.4 pg/mL Normal 4.0-76.1 [facility] Comment on above: Result Comment: CUT- OFF POINTS HAVE BEEN ESTABLISHED BASED ON THE FOURTH UNIVERSAL DEFINITIONS OF MYOCARDIALINFARCTION. THE UPPER REFERENCE LIMIT (URL) OF TROPONIN, DEFINED THE 99TH PERCENTILE OFcTnI DISTRIBUTION IN A REFERENCE POPULATION, HAS BEEN CONFIRMED THE DECISION THRESHOLDFOR [place] DIAGNOSIS. Performed By: #### H STROPN, BNP, BMP ####[facility] Nfwhmyktyq[address] [place], [place] [address]Dr. Elba Anthony XR CHEST 1 Von 04-24-2022 XR CHEST 1 V Normal [facility] BNPon 04-22-2022 Natriuretic peptide B (Bld) [Mass/Vol] 86121.0 pg/mL Critically high <=900.0 [facility] Comment on above: Performed By: #### B HAND BOX FOLDER, BMP ####[facility] Bnitiivoxd67[address] [place], [place] [address]Dr. Elba Anthony PROF CHEM 8 (BAS METB)on Anion gap [Moles/Vol] 13.8 mmol/L Normal [facility] Comment on above: Performed By: #### B HAND BOX FOLDER, BMP ####[facility] Eefhftiomy212[address] [place], [place] [address]Dr. Elba Anthony Calcium [Mass/Vol] 8.7 mg/dL Normal 8.5-10.1 [facility] Comment on above: Performed By: #### B HAND BOX FOLDER, BMP ####[facility] Sqhsutqeyb184[address] [place], [place] [address]Dr. Elba Anthony Chloride [Moles/Vol] 98 mmol/L Normal 98-107 [facility] Comment on above: Performed By: #### B HAND BOX FOLDER, BMP ####[facility] Tgiizbykcp225[address] [place], [place] [address]Dr. Elba Anthony CO2 [Moles/Vol] 29.1 mmol/L Normal 21.0-32.0 [facility] Comment on above: Performed By: #### B HAND BOX FOLDER, BMP ####[facility] Cnwhdwtcqo238[address] [place], [place] [address]Dr. Elba Anthony Creatinine [Mass/Vol] 2.89 mg/dL Critically high 0.70-1.30 [facility] Comment on above: Performed By: #### B HAND BOX FOLDER, BMP ####[facility] Pfrsrdtegu0508 [place] [address]Dr. Elba Anthony EGFR-AF TUVALUAN 26 mL/min/1.73m2 Critically low >=60 [facility] Comment on above: Performed By: #### B HAND BOX FOLDER, BMP ####[facility] Bnkbvfizti794[address] [place], [place] [address]Dr. Elba Anthony EGFR-NON AF TUVALUAN 22 mL/min/1.73m2 Critically low >=60 [facility] Comment on above: Performed By: #### B HAND BOX FOLDER, BMP ####[facility] Hytdsydclq98[address] [place], [place] [address]Dr. Elba Anthony Glucose [Mass/Vol] 108 mg/dL Critically high 74-106 [facility] Comment on above: Performed By: #### B HAND BOX FOLDER, BMP ####[facility] Jtygpgzxua518[address] [place], [place] [address]Dr. Elba Anthony Potassium [Moles/Vol] 4.9 mmol/L Normal 3.5-5.1 [facility] Comment on above: Performed By: #### B HAND BOX FOLDER, BMP ####[facility] Sagddpdhdc199902 [address] [place], [place] [address]Dr. Elba Anthony Sodium [Moles/Vol] 136 mmol/L Normal 136-145 [facility] Comment on above: Performed By: #### B HAND BOX FOLDER, BMP ####[facility] Vsupclfuut670[address] [place], [place] [address]Dr. Elba Anthony Urea nitrogen [Mass/Vol] 63.0 mg/dL Critically high 7.0-18.0 [facility] Comment on above: Performed By: #### B HAND BOX FOLDER, BMP ####[facility] Szkxprcilk029[address] [place], [place] [address]Dr. Elba Anthony Urea nitrogen/Creatinine [Mass ratio] 21.8 mg/mg Normal [facility] Comment on above: Performed By: #### B HAND BOX FOLDER, BMP ####[facility] Otjzvxuwrx137[address] [place], [place] [address]Dr. Elba Anthony BNPon 04-15-2022 Natriuretic peptide B (Bld) [Mass/Vol] 63433.0 pg/mL Critically high <=900.0 [facility] Comment on above: Result Comment: repe ated Performed By: #### B HAND BOX FOLDER, BMP ####[facility] Bmdmncufdg218[address] [place], [place] [address]Dr. Elba Anthony PROF CHEM 8 (BAS METB)on Anion gap [Moles/Vol] 16.8 mmol/L Normal [facility] Comment on above: Performed By: #### B HAND BOX FOLDER, BMP ####[facility] Mycqdnwrol370[address] [place], [place] [address]Dr. Elba Anthony Calcium [Mass/Vol] 8.4 mg/dL Critically low 8.5-10.1 [facility] Comment on above: Performed By: #### B HAND BOX FOLDER, BMP ####[facility] Glpqcriugv774[address] [place], [place] [address]Dr. Elba Anthony Chloride [Moles/Vol] 96 mmol/L Critically low 98-107 [facility] Comment on above: Performed By: #### B HAND BOX FOLDER, BMP ####[facility] Tespcrwbbj140[address] [place], [place] [address]Dr. Elba Anthony CO2 [Moles/Vol] 26.9 mmol/L Normal 21.0-32.0 [facility] Comment on above: Performed By: #### B HAND BOX FOLDER, BMP ####[facility] Rpfchrceti606[address] [place], [place] [address]Dr. Elba Anthony Creatinine [Mass/Vol] 2.83 mg/dL Critically high 0.70-1.30 [facility] Comment on above: Performed By: #### B HAND BOX FOLDER, BMP ####[facility] Bpheuhgwxg038[address] [place], [place] [address]Dr. Elba Anthony EGFR-AF TUVALUAN 27 mL/min/1.73m2 Critically low >=60 [facility] Comment on above: Performed By: #### B HAND BOX FOLDER, BMP ####[facility] Mlcjaykreu137[address] [place], [place] [address]Dr. Elba Anthony EGFR-NON AF TUVALUAN 22 mL/min/1.73m2 Critically low >=60 [facility] Comment on above: Performed By: #### B HAND BOX FOLDER, BMP ####[facility] Qxsvallyta966[address] [place], [place] [address]Dr. Elba Anthony Glucose [Mass/Vol] 118 mg/dL Critically high 74-106 T [facility] Comment on above: Performed By: #### B HAND BOX FOLDER, BMP ####[facility] Wcseablszx050[address] [place], [place] [address]Dr. Elba Anthony Potassium [Moles/Vol] 4.7 mmol/L Normal 3.5-5.1 [facility] Comment on above: Performed By: #### B HAND BOX FOLDER, BMP ####[facility] Tzqpugjcjz72[address] [place], [place] [address]Dr. Elba Anthony Sodium [Moles/Vol] 135 mmol/L Critically low 136-145 Th [facility] Comment on above: Performed By: #### B HAND BOX FOLDER, BMP ####[facility] Qvimcncgti639[address] [place], [place] [address]Dr. Elba Anthony Urea nitrogen [Mass/Vol] 68.0 mg/dL Critically high 7.0-18.0 [facility] Comment on above: Performed By: #### B HAND BOX FOLDER, BMP ####[facility] Hdthmivfdh868[address] [place], [place] [address]Dr. Elba Anthony Urea nitrogen/Creatinine [Mass ratio] 24.0 mg/mg Normal [facility] Comment on above: Performed By: #### B HAND BOX FOLDER, BMP ####[facility] Ufwajsnvia1216[address] [place], [place] [address]Dr. Elba Anthony BNPon 04-02-2022 Natriuretic peptide B (Bld) [Mass/Vol] 06580.0 pg/mL Critically high <=900.0 [facility] Comment on above: Performed By: #### B HAND BOX FOLDER, BMP ####[facility] Eclhguqyvo337[address] [place], [place] [address]Dr. Elba Anthony PROF CHEM 8 (BAS METB)on Anion gap [Moles/Vol] 9.7 mmol/L Normal [facility] Comment on above: Performed By: #### B HAND BOX FOLDER, BMP ####[facility] Ifztasvsvt859[address] [place], [place] [address]Dr. Elba Anthony Calcium [Mass/Vol] 8.8 mg/dL Normal 8.5-10.1 [facility] Comment on above: Performed By: #### B HAND BOX FOLDER, BMP ####[facility] Dxdxhtwtpp173[address] [place], [place] [address]Dr. Elba Anthony Chloride [Moles/Vol] 99 mmol/L Normal 98-107 [facility] Comment on above: Performed By: #### B HAND BOX FOLDER, BMP ####[facility] Fqozkgbjed665[address] [place], [place] [address]Dr. Elba Anthony CO2 [Moles/Vol] 31.1 mmol/L Normal 21.0-32.0 [facility] Comment on above: Performed By: #### B HAND BOX FOLDER, BMP ####[facility] Zboxkgerhj8[address] [place], [place] [address]Dr. Elba Anthony Creatinine [Mass/Vol] 2.45 mg/dL Critically high 0.70-1.30 [facility] Comment on above: Performed By: #### B HAND BOX FOLDER, BMP ####[facility] Rtrohhpbpi9[address] [place], [place] [address]Dr. Elba Anthony EGFR-AF TUVALUAN 32 mL/min/1.73m2 Critically low >=60 [facility] Comment on above: Performed By: #### B HAND BOX FOLDER, BMP ####[facility] Fhlkngyikp90[address] [place], [place] [address]Dr. Elba Anthony EGFR-NON AF TUVALUAN 26 mL/min/1.73m2 Critically low >=60 [facility] Comment on above: Performed By: #### B HAND BOX FOLDER, BMP ####[facility] Xcvygnhggc312[address] [place], [place] [address]Dr. Elba Anthony Glucose [Mass/Vol] 101 mg/dL Normal 74-106 [facility] Comment on above: Performed By: #### B HAND BOX FOLDER, BMP ####[facility] Nwovhwjwnl30[address] [place], [place] [address]Dr. Elba Anthony Potassium [Moles/Vol] 3.8 mmol/L Normal 3.5-5.1 [facility] Comment on above: Performed By: #### B HAND BOX FOLDER, BMP ####[facility] Jphoqrhomv183[address] [place], [place] [address]Dr. Elba Anthony Sodium [Moles/Vol] 136 mmol/L Normal 136-145 [facility] Comment on above: Performed By: #### B HAND BOX FOLDER, BMP ####[facility] Ydrppfdmha8959 [place] [address]Dr. Elba Anthony Urea nitrogen [Mass/Vol] 46.0 mg/dL Critically high 7.0-18.0 [facility] Comment on above: Performed By: #### B HAND BOX FOLDER, BMP ####[facility] Fsgmvxxenf9320 [place] [address]Dr. Elba Anthony Urea nitrogen/Creatinine [Mass ratio] 18.8 mg/mg Normal [facility] Comment on above: Performed By: #### B HAND BOX FOLDER, BMP ####[facility] Rsykhltiva3904 [place] [address]Dr. Elba Anthony CBC W MANUAL DIFFon 04-01-20 22 ANISOCYTOSIS 1+ Normal [facility] Comment on above: Performed By: #### C ADALGISA ####[facility] Ghfbaknxtb6817 [place] [address]Dr. Elba Anthony ATYPICAL LYMPH # 0.00 103/ul Normal [facility] Comment on above: Performed By: #### C ADALGISA ####[facility] Vnunvdjxct9073 [place] [address]Dr. Elba Anthony ATYPICAL LYMPH % 0 % Normal [facility] Comment on above: Performed By: #### C ADALGISA ####[facility] Hvjmaosxrb2502 [place] [address]Dr. Elba Anthony BAND # 0.4 103/ul Critically high 0.0-0.3 [facility] Comment on above: Performed By: #### C BCMAN ####[facility] Sbkjzzaktu12[address] [place] [address]Dr. Elba Anthony BAND % 4 % Normal 0-5 [facility] Comment on above: Performed By: #### C BCMAN ####[facility] Bmpmqqmwmg7451 [place] [address]Dr. Elba Raj BASOM # 0.00 103/ul Normal 0.00-0.10 [facility] Comment on above: Performed By: #### C ADALGISA ####[facility] Yzqfbkrvvy1269 [place] [address]Dr. Elba Anthony BASOM % 0.0 % Critically low 0.2-2.0 [facility] Comment on above: Performed By: #### C ADALGISA ####[facility] Cdqqvjypda2217 [place] [address]Dr. Elba Anthony BLAST # 0.0 103/ul Normal [facility] Comment on above: Performed By: #### C ADALGISA ####[facility] Bbhuutxxir0408 [place] [address]Dr. Elba Anthony BLAST % 0 % Normal [facility] Comment on above: Performed By: #### C ADALGISA ####[facility] G[address]jwaufyfa[address] [place], [place] [address]Dr. Elba Anthony CORRECTED WBC Normal 4.0-11.0 [facility] Comment on above: Performed By: #### C ADALGISA ####[facility] Oskcvcuodg[address] [place], [place] [address]Dr. Elba Anthony EOS # 0.00 103/ul Normal 0.00-0.70 [facility] Comment on above: Performed By: #### C ADALGISA ####[facility] Pwfgbivozr2547 [place] [address]Dr. Elba Anthony EOS% 0.0 % Critically low 0.9-7.0 [facility] Comment on above: Performed By: #### C ADALGISA ####[facility] Tpvryqmuku[address] [place], [place] [address]Dr. Elba Anthony HCT 31.3 % Critically low 42.0-54.0 [facility] Comment on above: Performed By: #### C ADALGISA ####[facility] Iudnsrecyc[address] [place], [place] [address]Dr. Elba Anthony HGB 9.2 g/dl Critically low 14.0-18.0 [facility] Comment on above: Performed By: #### C ADALGISA ####[facility] T[address]ngzkhcub[address] [place], [place] [address]Dr. Elba Anthony HYPOCHROMASIA SLIGHT Normal [facility] Comment on above: Performed By: #### C ADALGISA ####[facility] Dxohmclxqy4[address] [place] [id number]. Elba Anthony LYMPHM # 0.32 103/ul Critically low 1.20-3.80 [facility] Comment on above: Performed By: #### C ADALGISA ####[facility] Lymbvsbxlc6419 [place] [id number]. Elba Anthony LYMPHM% 3.0 % Critically low 20.5-60.0 [facility] Comment on above: Performed By: #### C ADALGISA ####[facility] Mnctrfonxl4985 [place] [address]Dr. Elba Anthony MCH 23.2 pg Critically low 25.9-34.0 [facility] Comment on above: Performed By: #### C ADALGISA ####[facility] Nnedveudda2450 [place] [address]Dr. Elba Anthony MCHC 29.4 g/dl Critically low 29.9-35.2 [facility] Comment on above: Performed By: #### C ADALGISA ####[facility] Ynhbfuswwi8062 [place] [address]Dr. Elba Anthony MCV 79.0 fL Critically low 80.0-94.0 [facility] Comment on above: Performed By: #### C ADALGISA ####[facility] Epgrmrcuqf7[address] [place] [address]Dr. Elba Anthony METAMYELOCYTE # 0.1 103/ul Normal [facility] Comment on above: Performed By: #### C ADALGISA ####[facility] Hbohrgpbwt89[address] [place] [id number]. Elba Anthony METAMYELOCYTE % 1 % Normal [facility] Comment on above: Performed By: #### C ADALGISA ####[facility] Hrjnscepcx27[address] [place] [id number]. Elba Anthony MICROCYTOSIS SLIGHT Normal [facility] Comment on above: Performed By: #### C ADALGISA ####[facility] Yikeqjgajm0136 [place] [id number]. Elba Anthony MONOM# 0.32 103/ul Normal 0.30-0.80 [facility] Comment on above: Performed By: #### Abdoul DIANA ####[facility] Ndhuaemblp30[address] [place] [id number]. Elba Anthony MONOM% 3.0 % Normal 1.7-12.0 [facility] Comment on above: Performed By: #### C ADALGISA ####[facility] Dfsknnamyu15[address] [place] [id number]. Elba Anthony MPV 9.9 fL Normal 9.5-13.5 [facility] Comment on above: Performed By: #### Abdoul DIANA ####[facility] Ogzxgvnwxo72[address] [place] [address]Dr. Elba Anthony MYELOCYTE # 0.0 103/ul Normal [facility] Comment on above: Performed By: #### Abdoul DIANA ####[facility] Hsvxxvxsaj[address] [place], [place] [address]Dr. Elba Anthony MYELOCYTE % 0 % Normal [facility] Comment on above: Performed By: #### Abdoul DIANA ####[facility] Zdojfmrqgg34[address] [place], [place] [address]Dr. Elba Anthony NRBC 0 Normal [facility] Comment on above: Performed By: #### Abdoul DIANA ####[facility] Hsadcoslhg9[address] [place] [id number]. Elba Anthony PLT 167 103/ul Normal 150-450 [facility] Comment on above: Performed By: #### C ADALGISA ####[facility] Ktgvfahame0423 [place] [id number]. lEba Anthnoy RBC 3.96 106/ul Critically low 4.70-6.10 [facility] Comment on above: Performed By: #### C ADALGISA ####[facility] Vynnwfbumy9164 [place] [phone]. Elba Anthony RDW 19.8 % Critically high 11.0-15.0 [facility] Comment on above: Performed By: #### C ADALGISA ####[facility] Bmhvuyoape64[address] [place] [phone]. Elba Anthony SEG # 9.52 103/ul Critically high 1.40-6.50 [facility] Comment on above: Performed By: #### C BCMAN ####[facility] Aabaihzirs4[address] [place] [phone]. Elba Anthony SEG % 89.0 % Critically high 43.0-75.0 [facility] Comment on above: Performed By: #### C BCMAN ####[facility] Apjtmgohjp8238 [place] [phone]. Elba Anthony WBC 10.7 103/ul Normal 4.0-11.0 [facility] Comment on above: Performed By: #### C ADALGISA ####[facility] Hexecgwuab8[address] [place] [address]. Elba Anthony CT CSPINE WO CONon CT CSPINE WO CON Normal [facility] CT HEAD WO CONon 04-01-2022 CT HEAD WO CON Normal [facility] PROF 14(COMP METB)on 022 Albumin [Mass/Vol] 2.8 g/dL Critically low 3.4-5.0 Th [facility] Comment on above: Performed By: #### C MP ####[facility] Ezqcfihdqg38[address] [place] [address]Dr. Elba Anthony Albumin/Globulin [Mass ratio] 0.6 {ratio} Normal [facility] Comment on above: Performed By: #### C MP ####[facility] Wovjrgqxby4[address] [place] [address]Dr. Elba Anthony ALP [Catalytic activity/Vol] 81 U/L Normal 46-116 [facility] Comment on above: Performed By: #### C MP ####[facility] Zrenvuztlz95[address] [place] [address]Dr. Elba Anthony ALT [Catalytic activity/Vol] 15 U/L Critically low 16-63 [facility] Comment on above: Performed By: #### C MP ####[facility] Stjzrynkrl9[address] [place] [address]Dr. Elba Anthony Anion gap [Moles/Vol] 9.2 mmol/L Normal [facility] Comment on above: Performed By: #### C MP ####[facility] Buzbcgzenj640[address] [place], [place] [address]Dr. Elba Anthony AST [Catalytic activity/Vol] 21 U/L Normal 15-37 [facility] Comment on above: Performed By: #### C MP ####[facility] Qlhdngrqis79[address] [place], [place] [address]Dr. Elba Anthony Bilirubin [Mass/Vol] 1.7 mg/dL Critically high 0.2-1.0 [facility] Comment on above: Performed By: #### C MP ####[facility] Xwkxzwgoju5412[address] [place], [place] [address]Dr. Elba Anthony Calcium [Mass/Vol] 9.0 mg/dL Normal 8.5-10.1 [facility] Comment on above: Performed By: #### C MP ####[facility] Tvdpcluova993[address] [place], [place] [address]Dr. Elba Anthony Chloride [Moles/Vol] 99 mmol/L Normal 98-107 [facility] Comment on above: Performed By: #### C MP ####[facility] Wtvnsghirx567[address] [place], [place] [address]Dr. Elba Anthony CO2 [Moles/Vol] 30.7 mmol/L Normal 21.0-32.0 [facility] Comment on above: Performed By: #### C MP ####[facility] Obuysymdkd257[address] [place], [place] [address]Dr. Elba Raj Creatinine [Mass/Vol] 2.60 mg/dL Critically high 0.70-1.30 [facility] Comment on above: Performed By: #### C MP ####[facility] Lyqsdnnsuo180[address] [place], [place] [address]Dr. Elba Raj EGFR-AF TUVALUAN 30 mL/min/1.73m2 Critically low >=60 [facility] Comment on above: Performed By: #### C MP ####[facility] Mhsdajhwdj[address] [place], [place] [address]Dr. Elba Anthony EGFR-NON AF TUVALUAN 25 mL/min/1.73m2 Critically low >=60 [facility] Comment on above: Performed By: #### C MP ####[facility] Ptkygsvyvl9993 [place] [address]Dr. Elba Anthony Globulin (S) [Mass/Vol] 4.4 g/dL Normal [facility] Comment on above: Performed By: #### C MP ####[facility] Wjxgelnuzf218[address] [place], [place] [address]Dr. Elba Anthony Glucose [Mass/Vol] 130 mg/dL Critically high 74-106 T [facility] Comment on above: Performed By: #### C MP ####[facility] Axbeuxjfxx164[address] [place], [place] [address]Dr. Elba Anthony Potassium [Moles/Vol] 3.9 mmol/L Normal 3.5-5.1 [facility] Comment on above: Performed By: #### C MP ####[facility] Tqcfdwrmqd11[address] [place], [place] [address]Dr. Elba Anthony Protein [Mass/Vol] 7.2 g/dL Normal 6.4-8.2 [facility] Comment on above: Performed By: #### C MP ####[facility] Dubhzzkesf227[address] [place], [place] [address]Dr. Elba Anthony Sodium [Moles/Vol] 135 mmol/L Critically low 136-145 [facility] Comment on above: Performed By: #### C MP ####[facility] Fuvkhkwyzc675[address] [place], [place] [address]Dr. Elba Raj Urea nitrogen [Mass/Vol] 41.0 mg/dL Critically high 7.0-18.0 [facility] Comment on above: Performed By: #### C MP ####[facility] Dobnivpjev406[address] [place], [place] [address]Dr. Nereydasiobhan Raj Urea nitrogen/Creatinine [Mass ratio] 15.8 mg/mg Normal [facility] Comment on above: Performed By: #### C MP ####[facility] Vkeonhbdnm6[address] [place], [place] [address]Dr. Elba Anthony XR CHEST 1 Von 04-01-2022 XR CHEST 1 V Normal [facility] BNPon 01-07-2022 Natriuretic peptide B (Bld) [Mass/Vol] 9964.0 pg/mL Critically high <=900.0 [facility] Comment on above: Performed By: #### C MP, BNP ####[facility] Izizplloeq68[address] [place] [address]Dr. Elba Anthony CBC W MANUAL DIFFon 01-08-20 22 ATYPICAL LYMPH # Normal [facility] Comment on above: Performed By: #### C BCMAN ####[facility] Uedkituvdp798[address] [place], [place] [address]Dr. Elba Anthony ATYPICAL LYMPH % Normal [facility] Comment on above: Performed By: #### C BCMAN ####[facility] Yxuagjatxp826[address] [place], [place] [address]Dr. Elba Anthony BAND # 0.1 103/ul Normal 0.0-0.3 [facility] Comment on above: Performed By: #### C BCMAN ####[facility] Aenwcbofwg4[address] [place], [place] [address]Dr. Elba Anthony BAND % 1 % Normal 0-5 [facility] Comment on above: Performed By: #### C BCMAN ####[facility] Dbahfnjusy40[address] [place], [place] [address]Dr. Elba Anthony BASOM # 0.00 103/ul Normal 0.00-0.10 [facility] Comment on above: Performed By: #### C BCMAN ####[facility] Qkyiiyxjib450[address] [place], [place] [address]Dr. Elba Anthony BASOM % 0.0 % Critically low 0.2-2.0 [facility] Comment on above: Performed By: #### C BCMAN ####[facility] Hebavzphzv8[address] [place], [place] [address]Dr. Elba Anthony BLAST # Normal [facility] Comment on above: Performed By: #### C BCMAN ####[facility] Ttugyipqqm058[address] [place], [place] [address]Dr. Yilan Anthony BLAST % Normal [facility] Comment on above: Performed By: #### C ADALGISA ####[facility] Tizqbxtatv90[address] [place] [phone]. Elba Anthony CORRECTED WBC Normal 4.0-11.0 [facility] Comment on above: Performed By: #### C ADALGISA ####[facility] Gyqqkfmqle7773 [place] [phone]. Elba Anthony EOS # 0.07 103/ul Normal 0.00-0.70 [facility] Comment on above: Performed By: #### C ADALGISA ####[facility] Dsjamtndms2580 [place] [phone]. Elba Anthony EOS% 1.0 % Normal 0.9-7.0 [facility] Comment on above: Performed By: #### C ADALGISA ####[facility] Wjqtatfolj5[address] [place] [phone]. Elba Anthony HCT 33.4 % Critically low 42.0-54.0 [facility] Comment on above: Performed By: #### C ADALGISA ####[facility] Ikiussdpiy2168 [place] [id number]. Elba Anthony HGB 9.8 g/dl Critically low 14.0-18.0 [facility] Comment on above: Performed By: #### C ADALGISA ####[facility] Hwxeaapksx9651 [place] [address]Dr. Elba Anthony LYMPHM # 0.44 103/ul Critically low 1.20-3.80 [facility] Comment on above: Performed By: #### C ADALGISA ####[facility] Iixtvuyayk6348 [place] [address]Dr. Elba Anthony LYMPHM% 6.0 % Critically low 20.5-60.0 [facility] Comment on above: Performed By: #### C ADALGISA ####[facility] Rimugkfufg7427 [place] [phone]. Elba Anthony MCH 24.1 pg Critically low 25.9-34.0 [facility] Comment on above: Performed By: #### C ADALGISA ####[facility] Ydobboigyb2409 [place] [phone]. Elba Anthony MCHC 29.3 g/dl Critically low 29.9-35.2 [facility] Comment on above: Performed By: #### C ADALGISA ####[facility] Fgyrkxybkp7940 [place] [phone]. Elba Anthony MCV 82.1 fL Normal 80.0-94.0 [facility] Comment on above: Performed By: #### C ADALGISA ####[facility] Lkcweaqnxx0576 [place] [phone]. Elba Anthony METAMYELOCYTE # Normal [facility] Comment on above: Performed By: #### Abdoul DIANA ####[facility] Mdkuxjgpxu[address] [place], [place] [address]Dr. Elba Anthony METAMYELOCYTE % Normal [facility] Comment on above: Performed By: #### Abdoul DIANA ####[facility] Zisdrkphmw06[address] [place], [place] [address]Dr. Elba Anthony MONOM# 0.52 103/ul Normal 0.30-0.80 [facility] Comment on above: Performed By: #### Abdoul DIANA ####[facility] Gdejezmjzx[address] [place], [place] [address]Dr. Elba Anthony MONOM% 7.0 % Normal 1.7-12.0 [facility] Comment on above: Performed By: #### Abdoul DIANA ####[facility] Nbwjluevpm359[address] [place], [place] [address]Dr. Elba Anthony MPV 9.5 fL Normal 9.5-13.5 [facility] Comment on above: Performed By: #### Abdoul DIANA ####[facility] Akqfgtofwl8[address] [place], [place] [address]Dr. Elba Anthony MYELOCYTE # Normal [facility] Comment on above: Performed By: #### Abdoul DIANA ####[facility] Qalukvqiai367[address] [place], [place] [address]Dr. Elba Anthony MYELOCYTE % Normal [facility] Comment on above: Performed By: #### Abdoul DIANA ####[facility] Gyrmkpxtbi8724 [place] [phone]. Elba Anthony NRBC Normal [facility] Comment on above: Performed By: #### C ADALGISA ####[facility] Obmwblrxgf8060 [place] [phone]. Elba Anthony PLT 247 103/ul Normal 150-450 [facility] Comment on above: Performed By: #### C ADALGISA ####[facility] Dnwkxqsirf1572 [place] [phone]. Elba Anthony RBC 4.07 106/ul Critically low 4.70-6.10 [facility] Comment on above: Performed By: #### C ADALGISA ####[facility] Ugxobpdjne779[address] [place], [place] [address]Dr. Elba Anthony RDW 18.7 % Critically high 11.0-15.0 [facility] Comment on above: Performed By: #### Abdoul DIANA ####[facility] Bgdvkzhxho1925[address] [place], [place] [address]Dr. Elba Anthony SEG # 6.29 103/ul Normal 1.40-6.50 [facility] Comment on above: Performed By: #### Abdoul DIANA ####[facility] Thaficvprg[address] [place], [place] [address]Dr. Elba Anthony SEG % 85.0 % Critically high 43.0-75.0 [facility] Comment on above: Performed By: #### C ADALGISA ####[facility] Kzuqigtppf[address] [place], [place] [address]Dr. Elba Anthony WBC 7.4 103/ul Normal 4.0-11.0 [facility] Comment on above: Performed By: #### C ADALGISA ####[facility] Gtustfaagq[address] [place], [place] [address]Dr. Elba Anthony ER URINE PROFILEon 2 Bilirubin Ql (U) Negative Normal NEGATIVE [facility] Comment on above: Performed By: #### E RUR ####[facility] Brfurjhcju[address] [place], [place] [address]Dr. Elba Anthony Clarity (U) CLEAR Normal CLEAR [facility] Comment on above: Performed By: #### E RUR ####[facility] Ihbfyxsuhh154[address] [place], [place] [address]Dr. Nereydasiobhan Raj Color (U) LT. YELLOW Normal YELLOW [facility] Comment on above: Performed By: #### E RUR ####[facility] Tlvhlsycuy317[address] [place], [place] [address]Dr. Elba Anthony ERUAHD A micrscopic examina tion will be performed if indicated. Normal [facility] Comment on above: Performed By: #### E RUR ####[facility] Cvhqiwkkfr223[address] [place], [place] [address]Dr. Elba Anthony Glucose Ql (U) Negative Normal NEGATIVE [facility] Comment on above: Performed By: #### E RUR ####[facility] Mugltwewxs4099[address] [place], [place] [address]Dr. Elba Anthony Hemoglobin Ql (U) Negative Normal NEGATIVE [facility] Comment on above: Performed By: #### E RUR ####[facility] Wajtivgnts[address] [place], [place] [address]Dr. Elba Anthony Ketones Ql (U) Negative Normal NEGATIVE [facility] Comment on above: Performed By: #### E RUR ####[facility] Xwcjbdhojh265[address] [place], [place] [address]Dr. Elba Anthony LEUKOCYTES Negative Normal NEGATIVE [facility] Comment on above: Performed By: #### E RUR ####[facility] Rxyyupiyhq539[address] [place], [place] [address]Dr. Elba Anthony Nitrite Ql (U) Negative Normal NEGATIVE [facility] Comment on above: Performed By: #### E RUR ####[facility] Jpxayeqkde747[address] [place], [place] [address]Dr. Elba Anthony pH (U) 5.0 [pH] Normal 5-9 [facility] Comment on above: Performed By: #### E RUR ####[facility] Hiuxmvihdd614[address] [place], [place] [address]Dr. Elba Anthony SPEC GRAVITY <=1.005 Abnormal 1.005-<=1.02 5 [facility] Comment on above: Performed By: #### E RUR ####[facility] Pcyenmfeib44[address] [place] [address]Dr. Elba Anthony UA PROTEIN Negative Normal NEGATIVE/ TRACE [facility] Comment on above: Performed By: #### E RUR ####[facility] Aisorlwtxo144[address] [place], [place] [address]Dr. Elba Anthony UR MICRO IND NOT INDICATED Normal [facility] Comment on above: Performed By: #### E RUR ####[facility] Uuucgidolk7724 [place] [address]Dr. Elba Anthony Urobilinogen Qn (U) 0.2 {Caden'U}/dL Normal 0.2 - 1. 0 [facility] Comment on above: Performed By: #### E RUR ####[facility] Jjwqgfqihc139[address] [place], [place] [address]Dr. Elba Anthony PROF 14(COMP METB)on 022 Albumin [Mass/Vol] 2.9 g/dL Critically low 3.4-5.0 [facility] Comment on above: Performed By: #### C MP, BNP ####[facility] Kmctifbkjh084[address] [place], [place] [address]Dr. Elba Anthony Albumin/Globulin [Mass ratio] 0.6 {ratio} Normal [facility] Comment on above: Performed By: #### C MP, BNP ####[facility] Okridirdcv639[address] [place], [place] [address]Dr. Elba Anthony ALP [Catalytic activity/Vol] 105 U/L Normal 46-116 [facility] Comment on above: Performed By: #### C MP, BNP ####[facility] Zuhmfkoybx93[address] [place], [place] [address]Dr. Elba Anthony ALT [Catalytic activity/Vol] 27 U/L Normal 16-63 [facility] Comment on above: Performed By: #### C MP, BNP ####[facility] Ejknfelljr874[address] [place], [place] [address]Dr. Elba Anthony Anion gap [Moles/Vol] 10.7 mmol/L Normal Th [facility] Comment on above: Performed By: #### C MP, BNP ####[facility] Gftcwrbmfh243[address] [place], [place] [address]Dr. Elba Raj AST [Catalytic activity/Vol] 20 U/L Normal 15-37 [facility] Comment on above: Performed By: #### C MP, BNP ####[facility] Qvuhktncwv9[address] [place], [place] [address]Dr. Elba Anthony Bilirubin [Mass/Vol] 1.1 mg/dL Critically high 0.2-1.0 [facility] Comment on above: Performed By: #### C MP, BNP ####[facility] Jfywbyrklk784[address] [place], [place] [address]Dr. Elba Anthony Calcium [Mass/Vol] 8.2 mg/dL Critically low 8.5-10.1 [facility] Comment on above: Performed By: #### C MP, BNP ####[facility] Akregnusrc845[address] [place], [place] [address]Dr. Elba Anthony Chloride [Moles/Vol] 99 mmol/L Normal 98-107 [facility] Comment on above: Performed By: #### C MP, BNP ####[facility] Skimjxolcj[address] [place], [place] [address]Dr. Elba Anthony CO2 [Moles/Vol] 28.6 mmol/L Normal 21.0-32.0 [facility] Comment on above: Performed By: #### C MP, BNP ####[facility] Mxpomrgfca449[address] [place], [place] [address]Dr. Elba Anthony Creatinine [Mass/Vol] 2.06 mg/dL Critically high 0.70-1.30 [facility] Comment on above: Performed By: #### C MP, BNP ####[facility] Xfwlrfdenz724[address] [place], [place] [address]Dr. Elba Anthony EGFR-AF TUVALUAN 39 mL/min/1.73m2 Critically low >=60 [facility] Comment on above: Performed By: #### C MP, BNP ####[facility] Gvhwtvechj178[address] [place], [place] [address]Dr. Elba Anthony EGFR-NON AF TUVALUAN 32 mL/min/1.73m2 Critically low >=60 [facility] Comment on above: Performed By: #### C MP, BNP ####[facility] Hezjrmxhbo5436 [place] [address]Dr. Elba Anthony Globulin (S) [Mass/Vol] 4.6 g/dL Normal [facility] Comment on above: Performed By: #### C MP, BNP ####[facility] Nxgbkaphho7323 [place] [address]Dr. Elba Anthony Glucose [Mass/Vol] 113 mg/dL Critically high 74-106 T [facility] Comment on above: Performed By: #### C MP, BNP ####[facility] Jhttizsckv[address] [place], [place] [address]Dr. Elba Anthony Potassium [Moles/Vol] 4.3 mmol/L Normal 3.5-5.1 [facility] Comment on above: Performed By: #### C MP, BNP ####[facility] Afimrlvvpd054[address] [place], [place] [address]Dr. Elba Anthony Protein [Mass/Vol] 7.5 g/dL Normal 6.1-8.2 [facility] Comment on above: Performed By: #### C MP, BNP ####[facility] Hswtsrfzmh443[address] [place], [place] [address]Dr. Elba Anthony Sodium [Moles/Vol] 134 mmol/L Critically low 136-145 [facility] Comment on above: Performed By: #### C MP, BNP ####[facility] Kzrpoqsqar5366 [place] [address]Dr. Elba Anthony Urea nitrogen [Mass/Vol] 48.0 mg/dL Critically high 7.0-18.0 [facility] Comment on above: Performed By: #### C MP, BNP ####[facility] Xmqdujpidp589[address] [place], [place] [address]Dr. Elba Anthony Urea nitrogen/Creatinine [Mass ratio] 23.3 mg/mg Normal [facility] Comment on above: Performed By: #### C MP, BNP ####[facility] Kafaulimbt1784 [place] [id number]. Elba Raj US ARLIN DOP LEG LTon 01-08-20 22 US ARLIN DOP LEG LT Normal [facility] XR CHEST 1 Von 01-07-2022 XR CHEST 1 V Normal [facility] CBC AUTO DIFFon 12-17-2021 BASO # 0.0 103/ul Normal 0.0-0.1 [facility] Comment on above: Performed By: #### C BC ####[facility] Qbxnoysicj5988 [place] [address]Dr. Elba Anthony Basophils/100 WBC (Bld) 0.1 % Critically low 0.2-2.0 [facility] Comment on above: Performed By: #### C BC ####[facility] Eafncvulyk34[address] [place] [address]Dr. Elba Anthony EO # 0.1 103/ul Normal 0.0-0.7 [facility] Comment on above: Performed By: #### C BC ####[facility] Sftbdewrwp[address] [place], [place] [address]Dr. Elba Anthony Eosinophils/100 WBC (Bld) 1.2 % Normal 0.9-7.0 [facility] Comment on above: Performed By: #### C BC ####[facility] Zzhvptsxce23[address] [place] [address]Dr. Elba Anthony Erythrocyte distribution width (RBC) [Ratio] 18.6 % Critically high 11.0-15.0 [facility] Comment on above: Performed By: #### C BC ####[facility] Ykrrtxxpej1222 [place] [address]Dr. Elba Anthony Hematocrit (Bld) [Volume fraction] 29.8 % Critically low 42.0-54.0 [facility] Comment on above: Performed By: #### C BC ####[facility] Rxqcrhdhbh267[address] [place], [place] [address]Dr. Elba Anthony Hemoglobin (Bld) [Mass/Vol] 9.0 g/dL Critically low 14.0-18.0 [facility] Comment on above: Performed By: #### C BC ####[facility] Hcwpzssdlm3134 [place] [id number]. Elba Anthony IG # 0.05 10e3/ul Critically high 0.00-0.03 [facility] Comment on above: Performed By: #### C BC ####[facility] Ovwntqjjop25[address] [place] [address]Dr. Elba Anthony IG % 0.6 % Critically high 0.0-0.5 [facility] Comment on above: Performed By: #### C BC ####[facility] Tmuqwpbrfp0960 [place] [address]Dr. Elba Anthony LYMPH # 0.4 103/ul Critically low 1.2-3.8 [facility] Comment on above: Performed By: #### C BC ####[facility] Msnipjzkrk1790 [place] [address]Dr. Nereydasiobhan Anthony Lymphocytes/100 WBC (Bld) 4.0 % Critically low 20.5-60.0 [facility] Comment on above: Performed By: #### C BC ####[facility] Abjaybpnvo[address] [place], [place] [address]Dr. Elba Anthony MANUAL DIFF REQ NO Normal [facility] Comment on above: Performed By: #### C BC ####[facility] Vrbqrvgmqu3[address] [place] [address]Dr. Elba Anthony MCH (RBC) [Entitic mass] 25.2 pg Critically low 25.9-34.0 [facility] Comment on above: Performed By: #### C BC ####[facility] Leozbqfkjm6108 [place] [address]Dr. Elba Anthony MCHC (RBC) [Mass/Vol] 30.2 g/dL Normal 29.9-35.2 [facility] Comment on above: Performed By: #### C BC ####[facility] Omcqfvpdty[address] [place], [place] [address]Dr. Elba Anthony MCV (RBC) [Entitic vol] 83.5 fL Normal 80.0-94.0 [facility] Comment on above: Performed By: #### C BC ####[facility] Lponjkyltf4147 [place] [id number]. Elba Anthony MONO # 0.9 103/ul Critically high 0.3-0.8 [facility] Comment on above: Performed By: #### C BC ####[facility] Fodywyoovg4972 [place] [address]Dr. Elba Anthony Monocytes/100 WBC (Bld) 9.7 % Normal 1.7-12.0 [facility] Comment on above: Performed By: #### C BC ####[facility] Mldisgntsh5991 [place] [phone]. Elba Anthony NEUT # 7.6 103/ul Critically high 1.4-6.5 [facility] Comment on above: Performed By: #### C BC ####[facility] Wywvmozkfy0657 [place] [phone]. Elba Anthony Neutrophils/100 WBC (Bld) 84.4 % Critically high 43.0-75.0 [facility] Comment on above: Performed By: #### C BC ####[facility] Rbitdpytxu9753 [place] [phone]. Elba Anthony Platelet mean volume (Bld) [Entitic vol] 10.0 fL Normal 9.5-13.5 [facility] Comment on above: Performed By: #### C BC ####[facility] Qlnbonoqmp3937 [place] [id number]. Elba Anthony PLT 154 103/ul Normal 150-450 [facility] Comment on above: Performed By: #### C BC ####[facility] Adbqhqvkwy6923 [place] [id number]. Elba Anthony RBC 3.57 106/ul Critically low 4.70-6.10 [facility] Comment on above: Performed By: #### C BC ####[facility] Kwvheprevt5192 [place] [id number]. Elba Anthony WBC 9.0 103/ul Normal 4.0-11.0 [facility] Comment on above: Performed By: #### C BC ####[facility] [address]flf[address] [place], [place] [address]Dr. Elba Anthony PROF 14(COMP METB)on 022 Albumin [Mass/Vol] 2.3 g/dL Critically low 3.4-5.0 [facility] Comment on above: Performed By: #### C MP ####[facility] Ixvylieoeu[address] [place], [place] [address]Dr. Elba Anthony Albumin/Globulin [Mass ratio] 0.6 {ratio} Normal [facility] Comment on above: Performed By: #### C MP ####[facility] Fblbrdfefn[address] [place], [place] [address]Dr. Elba Anthony ALP [Catalytic activity/Vol] 75 U/L Normal 46-116 [facility] Comment on above: Performed By: #### C MP ####[facility] [address] [place], [place] [address]Dr. Elba Anthony ALT [Catalytic activity/Vol] 30 U/L Normal 16-63 [facility] Comment on above: Performed By: #### C MP ####[facility] Mmewvsslcp[address] [place], [place] [address]Dr. Elba Anthony Anion gap [Moles/Vol] 11.6 mmol/L Normal Th [facility] Comment on above: Performed By: #### C MP ####[facility] Lxrklwpksg69[address] [place], [place] [address]Dr. Elba Anthony AST [Catalytic activity/Vol] 26 U/L Normal 15-37 [facility] Comment on above: Performed By: #### C MP ####[facility] Cnjytcjreu[address] [place], [place] [address]Dr. Elba Anthony Bilirubin [Mass/Vol] 0.9 mg/dL Normal 0.2-1.3 [facility] Comment on above: Performed By: #### C MP ####[facility] Jgvrsxygjj038[address] [place], [place] [address]Dr. Elba Anthony Calcium [Mass/Vol] 8.1 mg/dL Critically low 8.5-10.1 Th [facility] Comment on above: Performed By: #### C MP ####[facility] [address]codr[address] [place] [address]Dr. Elba Anthony Chloride [Moles/Vol] 101 mmol/L Normal 98-107 [facility] Comment on above: Performed By: #### C MP ####[facility] Xtxjnpsyie5[address] [place] [address]Dr. Elba Anthony CO2 [Moles/Vol] 26.2 mmol/L Normal 22.0-30.0 [facility] Comment on above: Performed By: #### C MP ####[facility] Txobzdhfzj55[address] [place] [address]Dr. Elba Anthony Creatinine [Mass/Vol] 2.26 mg/dL Critically high 0.66-1.25 [facility] Comment on above: Performed By: #### C MP ####[facility] Ebyscnvirc[address] [place], [place] [address]Dr. Elba Anthony EGFR-AF TUVALUAN 35 mL/min/1.73m2 Critically low >=60 [facility] Comment on above: Performed By: #### C MP ####[facility] Uwtyhsqavh[address] [place], [place] [address]Dr. Elba Anthony EGFR-NON AF TUVALUAN 29 mL/min/1.73m2 Critically low >=60 [facility] Comment on above: Performed By: #### C MP ####[facility] Znifilyvgq23[address] [place] [address]Dr. Elba Anthony Globulin (S) [Mass/Vol] 4.1 g/dL Normal [facility] Comment on above: Performed By: #### C MP ####[facility] Rdwbuzjnmz9574 [place] [address]Dr. Elba Anthony Glucose [Mass/Vol] 110 mg/dL Critically high 74-106 T [facility] Comment on above: Performed By: #### C MP ####[facility] Iulsrhzjqf69[address] [place] [address]Dr. Elba Anthony Potassium [Moles/Vol] 3.8 mmol/L Normal 3.4-5.0 [facility] Comment on above: Performed By: #### C MP ####[facility] Rywalmofyz[address] [place], [place] [address]Dr. Elba Anthony Protein [Mass/Vol] 6.4 g/dL Normal 6.1-8.2 [facility] Comment on above: Performed By: #### C MP ####[facility] Amfawnhsui[address] [place] [address]Dr. Elba Anthony Sodium [Moles/Vol] 135 mmol/L Critically low 137-145 Th [facility] Comment on above: Performed By: #### C MP ####[facility] Ggjzrgwqsv[address] [place], [place] [address]Dr. Elba Anthony Urea nitrogen [Mass/Vol] 49.0 mg/dL Critically high 7.0-18.0 [facility] Comment on above: Performed By: #### C MP ####[facility] Kcgbdeojvz9[address] [place], [place] [address]Dr. Elba Anthony Urea nitrogen/Creatinine [Mass ratio] 21.7 mg/mg Normal [facility] Comment on above: Performed By: #### C MP ####[facility] Tablkwhqtf828[address] [place], [place] [address]Dr. Elba Anthony BLOOD CULTURE ID/SENSon 04- Aerobe ID + Suscept Final report Abnormal [facility] Comment on above: Performed By: #### C XPOSBL ####[facility] Nfxstgscnz5427[address] [place], [place] [address]Dr. Elba Anthony Antimicrobial Susceptibility Comment Normal [facility] Comment on above: Result Comment: S = Susceptible; I = Intermediate; R = Resistant P = Positive; N = Negative MICS are expressed in micrograms per mL Antibiotic RSLT#1 RSLT#2 RSLT#3 RSLT#4Amikacin SCefepime SCeftazidime SCiprofloxacin SGentamicin SImipenem SLevofloxacin SMeropenem SPiperacillin STicarcillin STobramycin S Performed By: #### C XPOSBL ####[facility] Dotenskphf040[address] [place], [place] [address]Dr. Elba Anthony Result 1 Comment Abnormal [facility] Comment on above: Result Comment: Pseu domonas aeruginosaReceived aerobic bottle only. Performed By: #### C XPOSBL ####[facility] Xwvgesavwh[address] [place] [address]Dr. Elba Raj Result Comment: Pseu domonas aeruginosaReceived anaerobic bottle only. CBC AUTO DIFFon 12-16-2021 BASO # 0.0 103/ul Normal 0.0-0.1 [facility] Comment on above: Performed By: #### C BC ####[facility] Dbczucrpkw859[address] [place], [place] [address]Dr. Elba Anthony Basophils/100 WBC (Bld) 0.3 % Normal 0.2-2.0 [facility] Comment on above: Performed By: #### C BC ####[facility] Txesfvmaxu482[address] [place], [place] [address]Dr. Elba Anthony EO # 0.1 103/ul Normal 0.0-0.7 [facility] Comment on above: Performed By: #### C BC ####[facility] Xfuzpqxhre983[address] [place], [place] [address]Dr. Elba Anthony Eosinophils/100 WBC (Bld) 1.7 % Normal 0.9-7.0 [facility] Comment on above: Performed By: #### C BC ####[facility] Khsmxsuqvv107[address] [place], [place] [address]Dr. Elba Anthony Erythrocyte distribution width (RBC) [Ratio] 18.8 % Critically high 11.0-15.0 [facility] Comment on above: Performed By: #### C BC ####[facility] Uosvtxhiaf219[address] [place], [place] [address]Dr. Elba Anthony Hematocrit (Bld) [Volume fraction] 28.8 % Critically low 42.0-54.0 [facility] Comment on above: Performed By: #### C BC ####[facility] Gamqcwtiin225[address] [place], [place] [address]Dr. Elba Anthony Hemoglobin (Bld) [Mass/Vol] 8.6 g/dL Critically low 14.0-18.0 [facility] Comment on above: Performed By: #### C BC ####[facility] Fspxgrnxys[address] [place], [place] [address]Dr. Elba Raj IG # 0.05 10e3/ul Critically high 0.00-0.03 [facility] Comment on above: Performed By: #### C BC ####[facility] Ejrluctqrt097[address] [place], [place] [address]DrLatoya Elba Raj IG % 0.7 % Critically high 0.0-0.5 [facility] Comment on above: Performed By: #### C BC ####[facility] Rrkruztimk589[address] [place], [place] [address]DrLatoya Anthony LYMPH # 0.4 103/ul Critically low 1.2-3.8 [facility] Comment on above: Performed By: #### C BC ####[facility] Nsvzezknlu711[address] [place], [place] [address]DrLatoya Nereydasiobhan Anthony Lymphocytes/100 WBC (Bld) 5.4 % Critically low 20.5-60.0 [facility] Comment on above: Performed By: #### C BC ####[facility] Rblgeqtpqv867[address] [place], [place] [address]DrLatoya Nereydasiobhan Anthony MANUAL DIFF REQ NO Normal [facility] Comment on above: Performed By: #### C BC ####[facility] Qgsnrcczjf578[address] [place], [place] [address]DrLatoya Elba Raj MCH (RBC) [Entitic mass] 25.0 pg Critically low 25.9-34.0 [facility] Comment on above: Performed By: #### C BC ####[facility] Bjgthfixdv259[address] [place], [place] [address]DrLatoya Elba Raj MCHC (RBC) [Mass/Vol] 29.9 g/dL Normal 29.9-35.2 [facility] Comment on above: Performed By: #### C BC ####[facility] Yhycmxqngj793[address] [place], [place] [address]DrLatoya Elba Raj MCV (RBC) [Entitic vol] 83.7 fL Normal 80.0-94.0 [facility] Comment on above: Performed By: #### C BC ####[facility] Dvysjyjvmr0316[address] [place], [place] [address]Dr. Elba Anthony MONO # 0.7 103/ul Normal 0.3-0.8 [facility] Comment on above: Performed By: #### C BC ####[facility] Ylyasmsyft53[address] [place] [address]Dr. Elba Anthony Monocytes/100 WBC (Bld) 10.2 % Normal 1.7-12.0 [facility] Comment on above: Performed By: #### C BC ####[facility] Yjnkmvqxnr5038 [place] [address]Dr. Elba Anthony NEUT # 5.9 103/ul Normal 1.4-6.5 [facility] Comment on above: Performed By: #### C BC ####[facility] Spmsiprdsa9302 [place] [address]Dr. Elba Anthony Neutrophils/100 WBC (Bld) 81.7 % Critically high 43.0-75.0 [facility] Comment on above: Performed By: #### C BC ####[facility] Hpnwhnlzdh713[address] [place], [place] [address]Dr. Elba Anthony Platelet mean volume (Bld) [Entitic vol] 10.8 fL Normal 9.5-13.5 [facility] Comment on above: Performed By: #### C BC ####[facility] Htyknueyjv57[address] [place] [address]Dr. Elba Raj PLT 150 103/ul Normal 150-450 [facility] Comment on above: Performed By: #### C BC ####[facility] Sbqnpqxkjp825[address] [place], [place] [address]Dr. Elba Anthony RBC 3.44 106/ul Critically low 4.70-6.10 [facility] Comment on above: Performed By: #### C BC ####[facility] Clfhaizixl749[address] [place], [place] [address]Dr. Elba Raj WBC 7.2 103/ul Normal 4.0-11.0 [facility] Comment on above: Performed By: #### C BC ####[facility] Hjsrwqepkg575[address] [place], [place] [address]DrLatoya Anthony PROF 14(COMP METB)on 022 Albumin [Mass/Vol] 2.3 g/dL Critically low 3.4-5.0 Th [facility] Comment on above: Performed By: #### C MP ####[facility] Degfzjjbhh3712[address] [place], [place] [address]Dr. Elba Anthony Albumin/Globulin [Mass ratio] 0.6 {ratio} Normal [facility] Comment on above: Performed By: #### C MP ####[facility] Ppcnrxxnuu524[address] [place], [place] [address]Dr. lEba Anthony ALP [Catalytic activity/Vol] 77 U/L Normal 46-116 [facility] Comment on above: Performed By: #### C MP ####[facility] Izjddpmahk4219[address] [place], [place] [address]Dr. Elba Anthony ALT [Catalytic activity/Vol] 26 U/L Normal 16-63 [facility] Comment on above: Performed By: #### C MP ####[facility] Hxbahpxijb026[address] [place], [place] [address]Dr. Elba Anthony Anion gap [Moles/Vol] 12.3 mmol/L Normal Th [facility] Comment on above: Performed By: #### C MP ####[facility] Dxmqtgnwlb432[address] [place], [place] [address]Dr. Elba Anthony AST [Catalytic activity/Vol] 23 U/L Normal 15-37 [facility] Comment on above: Performed By: #### C MP ####[facility] Jfzbtuguyp648[address] [place], [place] [address]Dr. Elba Anthony Bilirubin [Mass/Vol] 0.8 mg/dL Normal 0.2-1.3 [facility] Comment on above: Performed By: #### C MP ####[facility] Pdmbplahkl361202 [address] [place], [place] [address]Dr. Elba Anthony Calcium [Mass/Vol] 8.0 mg/dL Critically low 8.5-10.1 Th [facility] Comment on above: Performed By: #### C MP ####[facility] Axyewdtpco308[address] [place], [place] [address]Dr. Elba Anthony Chloride [Moles/Vol] 101 mmol/L Normal 98-107 [facility] Comment on above: Performed By: #### C MP ####[facility] Tdgcfoxgsp3761 [place] [address]Dr. Elba Raj CO2 [Moles/Vol] 25.8 mmol/L Normal 22.0-30.0 [facility] Comment on above: Performed By: #### C MP ####[facility] Rkromdsjoo300[address] [place], [place] [address]Dr. Elba Anthony Creatinine [Mass/Vol] 2.72 mg/dL Critically high 0.66-1.25 [facility] Comment on above: Performed By: #### C MP ####[facility] Rkbfuhkubq5925[address] [place], [place] [address]Dr. Elba Anthony EGFR-AF TUVALUAN 28 mL/min/1.73m2 Critically low >=60 [facility] Comment on above: Performed By: #### C MP ####[facility] Sqftvygmja706[address] [place], [place] [address]Dr. Elba Anthony EGFR-NON AF TUVALUAN 23 mL/min/1.73m2 Critically low >=60 [facility] Comment on above: Performed By: #### C MP ####[facility] Ozfghhfzeo456[address] [place], [place] [address]Dr. Elba Anthony Globulin (S) [Mass/Vol] 4.1 g/dL Normal [facility] Comment on above: Performed By: #### C MP ####[facility] Gvlieeqwax856[address] [place], [place] [address]Dr. Elba Anthony Glucose [Mass/Vol] 130 mg/dL Critically high 74-106 T [facility] Comment on above: Performed By: #### C MP ####[facility] Uaklkdtuxu647[address] [place], [place] [address]Dr. Elba Anthony Potassium [Moles/Vol] 4.1 mmol/L Normal 3.4-5.0 [facility] Comment on above: Performed By: #### C MP ####[facility] Vqxrridvdf249[address] [place], [place] [address]Dr. Elba Anthony Protein [Mass/Vol] 6.4 g/dL Normal 6.1-8.2 [facility] Comment on above: Performed By: #### C MP ####[facility] Arapdrhrcy2201[address] [place], [place] [address]Dr. Elba Anthony Sodium [Moles/Vol] 135 mmol/L Critically low 137-145 Th [facility] Comment on above: Performed By: #### C MP ####[facility] Tiuklbgydk879402 [address] [place], [place] [address]Dr. Elba Anthony Urea nitrogen [Mass/Vol] 60.0 mg/dL Critically high 7.0-18.0 [facility] Comment on above: Performed By: #### C MP ####[facility] Wkzabrfmju929[address] [place], [place] [address]Dr. Elba Anthony Urea nitrogen/Creatinine [Mass ratio] 22.1 mg/mg Normal [facility] Comment on above: Performed By: #### C MP ####[facility] Thwngtjbrn31[address] [place], [place] [address]Dr. Nereydasiobhan Anthony BNPon 12-15-2021 Natriuretic peptide B (Bld) [Mass/Vol] 76758.0 pg/mL Critically high <=900.0 [facility] Comment on above: Result Comment: Test Repeated. Critical Value Verified Performed By: #### C MP, BNP, CRP ####[facility] Ieguekgldy188[address] [place], [place] [address]Dr. Elba Anthony CBC AUTO DIFFon 12-15-2021 BASO # 0.0 103/ul Normal 0.0-0.1 [facility] Comment on above: Performed By: #### C BC ####[facility] Dpmywljnbb260[address] [place], [place] [address]Dr. Elba Anthony Basophils/100 WBC (Bld) 0.2 % Normal 0.2-2.0 [facility] Comment on above: Performed By: #### C BC ####[facility] Kjauovfigu2514[address] [place], [place] [address]Dr. Elba Anthony EO # 0.1 103/ul Normal 0.0-0.7 [facility] Comment on above: Performed By: #### C BC ####[facility] Ahvjdauheo[address] [place] [address]Dr. Elba Anthony Eosinophils/100 WBC (Bld) 1.3 % Normal 0.9-7.0 [facility] Comment on above: Performed By: #### C BC ####[facility] Hqlpajezve04[address] [place] [address]Dr. Elba Anthony Erythrocyte distribution width (RBC) [Ratio] 19.0 % Critically high 11.0-15.0 [facility] Comment on above: Performed By: #### C BC ####[facility] Rexijceynx487[address] [place], [place] [address]Dr. Elba Anthony Hematocrit (Bld) [Volume fraction] 28.7 % Critically low 42.0-54.0 [facility] Comment on above: Performed By: #### C BC ####[facility] Ugrcdqdkmd966[address] [place], [place] [address]Dr. Elba Anthony Hemoglobin (Bld) [Mass/Vol] 8.7 g/dL Critically low 14.0-18.0 [facility] Comment on above: Performed By: #### C BC ####[facility] Nskwtlfywg695[address] [place], [place] [address]Dr. Elba Anthony IG # 0.04 10e3/ul Critically high 0.00-0.03 [facility] Comment on above: Performed By: #### C BC ####[facility] Bheidtjrka35[address] [place], [place] [address]Dr. Elba Anthony IG % 0.5 % Normal 0.0-0.5 [facility] Comment on above: Performed By: #### C BC ####[facility] Roytjfdugk38[address] [place], [place] [address]Dr. Elba Anthony LYMPH # 0.4 103/ul Critically low 1.2-3.8 [facility] Comment on above: Performed By: #### C BC ####[facility] Bsnwnvnsck6937[address] [place], [place] [address]Dr. Elba Anthony Lymphocytes/100 WBC (Bld) 4.2 % Critically low 20.5-60.0 [facility] Comment on above: Performed By: #### C BC ####[facility] Ijsuewtkwo7632 [place] [address]Dr. Elba Anthony MANUAL DIFF REQ NO Normal [facility] Comment on above: Performed By: #### C BC ####[facility] Kazdfrgiih0298 [place] [address]Dr. Elba Anthony MCH (RBC) [Entitic mass] 25.5 pg Critically low 25.9-34.0 [facility] Comment on above: Performed By: #### C BC ####[facility] Kwhuphvukh85[address] [place] [address]Dr. Elba Anthony MCHC (RBC) [Mass/Vol] 30.3 g/dL Normal 29.9-35.2 [facility] Comment on above: Performed By: #### C BC ####[facility] Ozwhsmskkp815[address] [place], [place] [address]Dr. Elba Anthony MCV (RBC) [Entitic vol] 84.2 fL Normal 80.0-94.0 [facility] Comment on above: Performed By: #### C BC ####[facility] Fhqxzujdex198[address] [place], [place] [address]Dr. Elba Anthony MONO # 0.6 103/ul Normal 0.3-0.8 [facility] Comment on above: Performed By: #### C BC ####[facility] Uxblxkzcjd476[address] [place], [place] [address]Dr. Elba Anthony Monocytes/100 WBC (Bld) 7.5 % Normal 1.7-12.0 [facility] Comment on above: Performed By: #### C BC ####[facility] Ewiuwpyljv[address] [place], [place] [address]DrLatoya Anthony NEUT # 7.2 103/ul Critically high 1.4-6.5 [facility] Comment on above: Performed By: #### C BC ####[facility] Gakmzcdtua229[address] [place], [place] [address]DrLatoya Anthony Neutrophils/100 WBC (Bld) 86.3 % Critically high 43.0-75.0 [facility] Comment on above: Performed By: #### C BC ####[facility] Whibhircft31[address] [place] [address]Dr. Elba Anthony Platelet mean volume (Bld) [Entitic vol] 10.7 fL Normal 9.5-13.5 [facility] Comment on above: Performed By: #### C BC ####[facility] Ehwffpqgzo8637 [place] [address]Dr. Elba Anthony PLT 132 103/ul Critically low 150-450 [facility] Comment on above: Performed By: #### C BC ####[facility] Ilbktlcipc5[address] [place] [address]Dr. Elba Anthony RBC 3.41 106/ul Critically low 4.70-6.10 [facility] Comment on above: Performed By: #### C BC ####[facility] Gvsmbqcjhq9452 [place] [address]DrLatoya Anthony WBC 8.4 103/ul Normal 4.0-11.0 [facility] Comment on above: Performed By: #### C BC ####[facility] Qbmytzyeed9923 [place] [address]DrLatoya Anthony CRPon 12-15-2021 CRP [Mass/Vol] mg/L Critically high <=1.0 [facility] Comment on above: Performed By: #### C MP, BNP, CRP ####[facility] Cfpholmeoj2593 [place] [address]DrLatoya Anthony PROF 14(COMP METB)on 022 Albumin [Mass/Vol] 2.4 g/dL Critically low 3.4-5.0 [facility] Comment on above: Performed By: #### C MP, BNP, CRP ####[facility] Fuqqxghwim0675 [place] [address]DrLatoya Anthony Albumin/Globulin [Mass ratio] 0.6 {ratio} Normal [facility] Comment on above: Performed By: #### C MP, BNP, CRP ####[facility] Eiqtpmndcx5152 [place] [address]DrLatoya Anthony ALP [Catalytic activity/Vol] 75 U/L Normal 46-116 [facility] Comment on above: Performed By: #### C MP, BNP, CRP ####[facility] Fwqevfffaf[address] [place] [address]Dr. Elba Anthony ALT [Catalytic activity/Vol] 22 U/L Normal 16-63 [facility] Comment on above: Performed By: #### C MP, BNP, CRP ####[facility] Aytgvzqkry5644 [place] [address]Dr. Elba Anthony Anion gap [Moles/Vol] 13.8 mmol/L Normal [facility] Comment on above: Performed By: #### C MP, BNP, CRP ####[facility] Xxrrepnitr742[address] [place], [place] [address]Dr. Elba Anthony AST [Catalytic activity/Vol] 17 U/L Normal 15-37 [facility] Comment on above: Performed By: #### C MP, BNP, CRP ####[facility] Fzmelpzkpf076[address] [place], [place] [address]Dr. Elba Anthony Bilirubin [Mass/Vol] 0.8 mg/dL Normal 0.2-1.3 [facility] Comment on above: Performed By: #### C MP, BNP, CRP ####[facility] Niluqmdhsl427[address] [place], [place] [address]Dr. Elba Anthony Calcium [Mass/Vol] 7.7 mg/dL Critically low 8.5-10.1 [facility] Comment on above: Performed By: #### C MP, BNP, CRP ####[facility] Jsdlstijfx2401 [place] [address]Dr. Elba Anthony Chloride [Moles/Vol] 98 mmol/L Normal 98-107 [facility] Comment on above: Performed By: #### C MP, BNP, CRP ####[facility] Eovbpzrzlv5095 [place] [address]Dr. Elba Anthony CO2 [Moles/Vol] 24.5 mmol/L Normal 22.0-30.0 [facility] Comment on above: Performed By: #### C MP, BNP, CRP ####[facility] Siszlickjk4420 [place] [address]Dr. Elba Anthony Creatinine [Mass/Vol] 3.10 mg/dL Critically high 0.66-1.25 [facility] Comment on above: Performed By: #### C MP, BNP, CRP ####[facility] Tsgjinxjhl[address] [place] [address]Dr. Elba Anthony EGFR-AF TUVALUAN 24 mL/min/1.73m2 Critically low >=60 [facility] Comment on above: Performed By: #### C MP, BNP, CRP ####[facility] Isgfcyqbuz247[address] [place], [place] [address]Dr. Elba Raj EGFR-NON AF TUVALUAN 20 mL/min/1.73m2 Critically low >=60 [facility] Comment on above: Performed By: #### C MP, BNP, CRP ####[facility] Lnbyabisfs[address]24[address] [place], [place] [address]Dr. Elba Anthony Globulin (S) [Mass/Vol] 4.1 g/dL Normal [facility] Comment on above: Performed By: #### C MP, BNP, CRP ####[facility] Jstaecftcz668[address] [place], [place] [address]Dr. Nereydasiobhan Anthony Glucose [Mass/Vol] 141 mg/dL Critically high 74-106 T [facility] Comment on above: Performed By: #### C MP, BNP, CRP ####[facility] Gfbuqshqrl4919[address] [place], [place] [address]Dr. Elba Anthony Potassium [Moles/Vol] 4.3 mmol/L Normal 3.4-5.0 [facility] Comment on above: Performed By: #### C MP, BNP, CRP ####[facility] Idsfazgzmm465[address] [place], [place] [address]Dr. Elba Anthony Protein [Mass/Vol] 6.5 g/dL Normal 6.1-8.2 [facility] Comment on above: Performed By: #### C MP, BNP, CRP ####[facility] Ahquhvrofj455[address] [place], [place] [address]Dr. Elba Anthony Sodium [Moles/Vol] 132 mmol/L Critically low 137-145 [facility] Comment on above: Performed By: #### C MP, BNP, CRP ####[facility] Venpiqolkq4726 [place] [address]Dr. Elba Anthony Urea nitrogen [Mass/Vol] 62.0 mg/dL Critically high 7.0-18.0 [facility] Comment on above: Performed By: #### C MP, BNP, CRP ####[facility] Hekvaimyfq2178 [place] [address]Dr. Elba Anthony Urea nitrogen/Creatinine [Mass ratio] 20.0 mg/mg Normal [facility] Comment on above: Performed By: #### C MP, BNP, CRP ####[facility] Ffsfwlpkmd6382 [place] [address]Dr. Elba Anthony UA RANDOM W/MICROSCOPICon BACTERIA TRACE Abnormal NONE SEEN [facility] Comment on above: Performed By: #### U AMIC ####[facility] Oaegqttaif[address] [place], [place] [address]Dr. Elba Anthony Bilirubin Ql (U) Negative Normal NEGATIVE [facility] Comment on above: Performed By: #### U AMIC ####[facility] Yyhnypmhff8[address] [place], [place] [address]Dr. Elba Anthony CAST NONE SEEN Normal NONE SEEN [facility] Comment on above: Performed By: #### U AMIC ####[facility] Wirnztanga[address] [place] [address]Dr. Elba Anthony Clarity (U) CLEAR Normal CLEAR [facility] Comment on above: Performed By: #### U AMIC ####[facility] Wugknspuom05[address] [place] [address]Dr. Elba Anthony Color (U) LT. YELLOW Normal YELLOW [facility] Comment on above: Performed By: #### U AMIC ####[facility] Ruzewthpej[address] [place] [address]Dr. Elba Anthony Crystals LM Nom (Urine sed) SEEN Abnormal NONE SEEN [facility] Comment on above: Performed By: #### U AMIC ####[facility] Lvosluxuin0456 [place] [address]Dr. Elba Anthony Epithelial cells LM Ql (Urine sed) RARE Normal NONE SEEN /RARE [facility] Comment on above: Performed By: #### U AMIC ####[facility] Gapzzruxvu5444 [place] [address]Dr. Elba Anthony Glucose Ql (U) Negative Normal NEGATIVE [facility] Comment on above: Performed By: #### U AMIC ####[facility] Jcnmeqibpe477[address] [place], [place] [address]Dr. Elba Anthony Hemoglobin Ql (U) MODERATE Abnormal NEGATIVE [facility] Comment on above: Performed By: #### U AMIC ####[facility] Urevmktymp[address] [place], [place] [address]Dr. Elba Anthony Ketones Ql (U) Negative Normal NEGATIVE [facility] Comment on above: Performed By: #### U AMIC ####[facility] Cmjanbqaac[address] [place], [place] [address]Dr. Elba Anthony LEUKOCYTES Negative Normal NEGATIVE [facility] Comment on above: Performed By: #### U AMIC ####[facility] Qufxylsjme[address] [place], [place] [address]Dr. Elba Anthony MUCOUS NONE SEEN Normal NONE SEEN [facility] Comment on above: Performed By: #### U AMIC ####[facility] Mapljwclui[address] [place] [address]Dr. Elba Anthony Nitrite Ql (U) Negative Normal NEGATIVE [facility] Comment on above: Performed By: #### U AMIC ####[facility] Ixhwineeqi[address] [place], [place] [address]Dr. Elba Anthony pH (U) 5.5 [pH] Normal 5-9 [facility] Comment on above: Performed By: #### U AMIC ####[facility] Xkyrydoans[address] [place], [place] [address]Dr. Elba Anthony RBC 50-75 Abnormal 0-2 [facility] [facility] Comment on above: Performed By: #### U AMIC ####[facility] Zjqzmjzgqo[address] [place], [place] [address]Dr. Elba Anthony SPEC GRAVITY 1.015 Normal 1.005-<=1.02 5 [facility] Comment on above: Performed By: #### U AMIC ####[facility] [address]mkipoeui[address] [place] [address]Dr. Elba Anthony UA PROTEIN Negative Normal NEGATIVE/ TRACE [facility] Comment on above: Performed By: #### U AMIC ####[facility] Cjyhsxzwzt[address] [place] [address]Dr. Elba Anthony URIC ACID CRYSTALS FEW Normal [facility] Comment on above: Performed By: #### U AMIC ####[facility] Gslnqlrawg[address] [place] [address]Dr. Nereydasiobhan Anthony Urobilinogen Qn (U) 0.2 {Caden'U}/dL Normal 0.2 - 1. 0 [facility] Comment on above: Performed By: #### U AMIC ####[facility] Ilyxgbhsgk[address] [place], [place] [address]Dr. Elba Anthony WBC 0-2 Abnormal NONE SEEN [facility] Comment on above: Performed By: #### U AMIC ####[facility] Hmbpwumvyn[address] [place], [place] [address]Dr. Elba Anthony BNPon 12-14-2021 Natriuretic peptide B (Bld) [Mass/Vol] 40403.0 pg/mL Critically high <=900.0 [facility] Comment on above: Result Comment: test repeated Performed By: #### C RP, CMP, BNP ####[facility] Cnvmflbogo[address] [place], [place] [address]Dr. Elba Anthony CBC AUTO DIFFon 12-14-2021 BASO # 0.0 103/ul Normal 0.0-0.1 [facility] Comment on above: Performed By: #### C BC ####[facility] Ndyrgorihv[address] [place], [place] [address]Dr. Nereydasiobhan Anthony Basophils/100 WBC (Bld) 0.1 % Critically low 0.2-2.0 [facility] Comment on above: Performed By: #### C BC ####[facility] Zjycammnww[address] [place] [address]Dr. Elba Anthony EO # 0.1 103/ul Normal 0.0-0.7 [facility] Comment on above: Performed By: #### C BC ####[facility] Cvwlrrrwlg46[address] [place] [address]Dr. Elba Anthony Eosinophils/100 WBC (Bld) 1.1 % Normal 0.9-7.0 [facility] Comment on above: Performed By: #### C BC ####[facility] Ovfxttgcwg[address] [place] [address]Dr. Elba Anthony Erythrocyte distribution width (RBC) [Ratio] 18.7 % Critically high 11.0-15.0 [facility] Comment on above: Performed By: #### C BC ####[facility] Yepjxutieo[address] [place], [place] [address]Dr. Elba Anthony Hematocrit (Bld) [Volume fraction] 28.9 % Critically low 42.0-54.0 [facility] Comment on above: Performed By: #### C BC ####[facility] Byqinjrjrd998[address] [place], [place] [address]Dr. Elba Anthony Hemoglobin (Bld) [Mass/Vol] 8.7 g/dL Critically low 14.0-18.0 [facility] Comment on above: Performed By: #### C BC ####[facility] Wutgkghzme045[address] [place], [place] [address]Dr. Elba Anthony IG # 0.04 10e3/ul Critically high 0.00-0.03 [facility] Comment on above: Performed By: #### C BC ####[facility] Edsucsyitc027[address] [place], [place] [address]Dr. Elba Anthony IG % 0.4 % Normal 0.0-0.5 [facility] Comment on above: Performed By: #### C BC ####[facility] Cevkiaqiax34[address] [place], [place] [address]Dr. Nereydasiobhan Anthony LYMPH # 0.4 103/ul Critically low 1.2-3.8 [facility] Comment on above: Performed By: #### C BC ####[facility] Fxizpisldp[address] [place] [id number]. Nereydasiobhan Anthony Lymphocytes/100 WBC (Bld) 4.1 % Critically low 20.5-60.0 [facility] Comment on above: Result Comment: dif. not rqd. same as 12/12/21 Performed By: #### C BC ####[facility] Lczbfrzcby7[address] [place] [phone]. Elba Anthony MANUAL DIFF REQ NO Normal [facility] Comment on above: Performed By: #### C BC ####[facility] Yidykswkcq2402 [place] [phone]. Elba Anthony MCH (RBC) [Entitic mass] 25.3 pg Critically low 25.9-34.0 [facility] Comment on above: Performed By: #### C BC ####[facility] Ivuzgseoub[address] [place], [place] [address]Dr. Elba Anthony MCHC (RBC) [Mass/Vol] 30.1 g/dL Normal 29.9-35.2 [facility] Comment on above: Performed By: #### C BC ####[facility] Zalslnrnhc7[address] [place], [place] [address]Dr. Elba Anthony MCV (RBC) [Entitic vol] 84.0 fL Normal 80.0-94.0 [facility] Comment on above: Performed By: #### C BC ####[facility] Flnquetacy34[address] [place], [place] [address]Dr. Elba Anthony MONO # 0.9 103/ul Critically high 0.3-0.8 [facility] Comment on above: Performed By: #### C BC ####[facility] Qlptbacvew[address] [place], [place] [address]Dr. Elba Anthony Monocytes/100 WBC (Bld) 9.3 % Normal 1.7-12.0 [facility] Comment on above: Performed By: #### C BC ####[facility] Woxyswpgpm[address] [place], [place] [address]Dr. Elba Anthony NEUT # 7.8 103/ul Critically high 1.4-6.5 [facility] Comment on above: Performed By: #### C BC ####[facility] Iooytiiugl9553 [place] [phone]. Elba Anthony Neutrophils/100 WBC (Bld) 85.0 % Critically high 43.0-75.0 [facility] Comment on above: Performed By: #### C BC ####[facility] Gfxwdqldhz6[address] [place] [phone]. Elba Anthony Platelet mean volume (Bld) [Entitic vol] 11.0 fL Normal 9.5-13.5 [facility] Comment on above: Performed By: #### C BC ####[facility] Yenhvlrypb77[address] [place] [address]Dr. Elba Anthony PLT 117 103/ul Critically low 150-450 [facility] Comment on above: Performed By: #### C BC ####[facility] Bcsmhwqzqg9[address] [place] [address]Dr. Elba Anthony RBC 3.44 106/ul Critically low 4.70-6.10 [facility] Comment on above: Performed By: #### C BC ####[facility] Ezxkinjyfk35[address] [place] [phone]. Elba Anthony WBC 9.2 103/ul Normal 4.0-11.0 [facility] Comment on above: Performed By: #### C BC ####[facility] Vudcoeanuk30[address] [place] [address]DrLatoya Anthony CRPon 12-14-2021 CRP [Mass/Vol] mg/L Critically high <=1.0 [facility] Comment on above: Performed By: #### C RP, CMP, BNP ####[facility] Jpcjujeblv6[address] [place] [phone] Anthony PROF 14(COMP METB)on 022 Albumin [Mass/Vol] 2.5 g/dL Critically low 3.4-5.0 [facility] Comment on above: Performed By: #### C RP, CMP, BNP ####[facility] Yzjpbrzuvq7257 [place] [address]DrLatoya Anthony Albumin/Globulin [Mass ratio] 0.6 {ratio} Normal [facility] Comment on above: Performed By: #### C RP, CMP, BNP ####[facility] Iouvtvcaon50[address] [place] [address]Dr. Elba Raj ALP [Catalytic activity/Vol] 76 U/L Normal 46-116 [facility] Comment on above: Performed By: #### C RP, CMP, BNP ####[facility] Zkpqrmydfx330[address] [place], [place] [address]Dr. Elba Raj ALT [Catalytic activity/Vol] 17 U/L Normal 16-63 [facility] Comment on above: Performed By: #### C RP, CMP, BNP ####[facility] Rlfyhvwtgz443[address] [place], [place] [address]Dr. Elba Anthony Anion gap [Moles/Vol] 13.3 mmol/L Normal [facility] Comment on above: Performed By: #### C RP, CMP, BNP ####[facility] Rznxyyvsub228[address] [place], [place] [address]Dr. Nereydasiobhan Anthony AST [Catalytic activity/Vol] 22 U/L Normal 15-37 [facility] Comment on above: Performed By: #### C RP, CMP, BNP ####[facility] Kbrnxdoabu50[address] [place], [place] [address]Dr. Elba Anthony Bilirubin [Mass/Vol] 1.0 mg/dL Normal 0.2-1.3 [facility] Comment on above: Performed By: #### C RP, CMP, BNP ####[facility] Huccmbjifm285[address] [place], [place] [address]Dr. Elba Anthony Calcium [Mass/Vol] 8.1 mg/dL Critically low 8.5-10.1 [facility] Comment on above: Performed By: #### C RP, CMP, BNP ####[facility] Npvpisqsij746[address] [place], [place] [address]Dr. Elba Anthony Chloride [Moles/Vol] 97 mmol/L Critically low 98-107 [facility] Comment on above: Performed By: #### C RP, CMP, BNP ####[facility] Xwwcjbrsyv9474 [place] [address]Dr. Elba Anthony CO2 [Moles/Vol] 25.0 mmol/L Normal 22.0-30.0 [facility] Comment on above: Performed By: #### C RP, CMP, BNP ####[facility] Sygkhfmhvl67[address] [place] [address]Dr. Elba Anthony Creatinine [Mass/Vol] 2.85 mg/dL Critically high 0.66-1.25 [facility] Comment on above: Performed By: #### C RP, CMP, BNP ####[facility] Bisphqbavp7[address] [place] [address]Dr. Elba Anthony EGFR-AF TUVALUAN 27 mL/min/1.73m2 Critically low >=60 [facility] Comment on above: Performed By: #### C RP, CMP, BNP ####[facility] Suydschyvz[address] [place], [place] [address]Dr. Elba Raj EGFR-NON AF TUVALUAN 22 mL/min/1.73m2 Critically low >=60 [facility] Comment on above: Performed By: #### C RP, CMP, BNP ####[facility] Mjyqdslpzx4[address] [place] [address]Dr. Elba Anthony Globulin (S) [Mass/Vol] 3.9 g/dL Normal [facility] Comment on above: Performed By: #### C RP, CMP, BNP ####[facility] Bfdfwtptwo8[address] [place] [address]Dr. Elba Anthony Glucose [Mass/Vol] 123 mg/dL Critically high 74-106 [facility] Comment on above: Performed By: #### C RP, CMP, BNP ####[facility] Brnkazclfg1462 [place] [address]Dr. Elba Anthony Potassium [Moles/Vol] 4.3 mmol/L Normal 3.4-5.0 [facility] Comment on above: Performed By: #### C RP, CMP, BNP ####[facility] Ghypdhlxmp8[address] [place], [place] [address]Dr. Elba Anthony Protein [Mass/Vol] 6.4 g/dL Normal 6.1-8.2 [facility] Comment on above: Performed By: #### C RP, CMP, BNP ####[facility] Nqwouqmhgw73[address] [place] [address]Dr. Elba Anthony Sodium [Moles/Vol] 131 mmol/L Critically low 137-145 [facility] Comment on above: Performed By: #### C RP, CMP, BNP ####[facility] Iebhvmlsvd5449 [place] [address]Dr. Elba Anthony Urea nitrogen [Mass/Vol] 57.0 mg/dL Critically high 7.0-18.0 [facility] Comment on above: Performed By: #### C RP, CMP, BNP ####[facility] Fxiebaugap22[address] [place], [place] [address]Dr. Elba Anthony Urea nitrogen/Creatinine [Mass ratio] 20.0 mg/mg Normal [facility] Comment on above: Performed By: #### C RP, CMP, BNP ####[facility] Tqwjicvowx[address] [place], [place] [address]Dr. Elba Anthony XR CHEST 1 Von 12-14-2021 XR CHEST 1 V Normal [facility] XR CHEST 1 V Normal [facility] BNPon 12-13-2021 Natriuretic peptide B (Bld) [Mass/Vol] 90655.0 pg/mL Critically high <=900.0 [facility] Comment on above: Performed By: #### B HAND BOX FOLDER ####[facility] Quhwvqprdv459[address] [place], [place] [address]Dr. Elba Anthony CBC AUTO DIFFon 12-13-2021 BASO # 0.0 103/ul Normal 0.0-0.1 [facility] Comment on above: Performed By: #### C BC ####[facility] Dztixgavab899[address] [place], [place] [address]Dr. Elba Anthony Basophils/100 WBC (Bld) 0.1 % Critically low 0.2-2.0 [facility] Comment on above: Performed By: #### C BC ####[facility] Pbwwqbeoxq162[address] [place], [place] [address]Dr. Elba Anthony EO # 0.0 103/ul Normal 0.0-0.7 [facility] Comment on above: Performed By: #### C BC ####[facility] Xksqbkeuzv5787 [place] [address]Dr. Nereydasiobhan Anthony Eosinophils/100 WBC (Bld) 0.2 % Critically low 0.9-7.0 [facility] Comment on above: Performed By: #### C BC ####[facility] Bbyevbgqjq46350[address] [place], [place] [address]Dr. Elba Anthony Erythrocyte distribution width (RBC) [Ratio] 19.0 % Critically high 11.0-15.0 [facility] Comment on above: Performed By: #### C BC ####[facility] Hetyiugdgm657[address] [place], [place] [address]Dr. Elba Anthony Hematocrit (Bld) [Volume fraction] 31.8 % Critically low 42.0-54.0 [facility] Comment on above: Performed By: #### C BC ####[facility] Ozejloxgyw07[address] [place], [place] [address]Dr. Elba Anthony Hemoglobin (Bld) [Mass/Vol] 9.5 g/dL Critically low 14.0-18.0 [facility] Comment on above: Performed By: #### C BC ####[facility] Ndzagezyhk27[address] [place], [place] [address]Dr. Elba Anthony IG # 0.05 10e3/ul Critically high 0.00-0.03 [facility] Comment on above: Performed By: #### C BC ####[facility] Uefkmxdsva719[address] [place], [place] [address]Dr. Elba Anthony IG % 0.4 % Normal 0.0-0.5 [facility] Comment on above: Performed By: #### C BC ####[facility] Ofvqiyqsyl[address] [place], [place] [address]DrLatoya Anthony LYMPH # 0.3 103/ul Critically low 1.2-3.8 [facility] Comment on above: Performed By: #### C BC ####[facility] Rdxfitaspc[address] [place], [place] [address]Dr. Elba Anthony Lymphocytes/100 WBC (Bld) 2.3 % Critically low 20.5-60.0 [facility] Comment on above: Result Comment: dif. not rqd. same as 12/12/21 Performed By: #### C BC ####[facility] Orazaitiub[address] [place] [phone]. Elba Anthony MANUAL DIFF REQ NO Normal [facility] Comment on above: Performed By: #### C BC ####[facility] Xbznjbmsjl0422 [place] [address]Dr. Elba Raj MCH (RBC) [Entitic mass] 25.3 pg Critically low 25.9-34.0 [facility] Comment on above: Performed By: #### C BC ####[facility] Vkojkmmldm[address] [place], [place] [address]Dr. Elba Raj MCHC (RBC) [Mass/Vol] 29.9 g/dL Normal 29.9-35.2 [facility] Comment on above: Performed By: #### C BC ####[facility] Uxlpjdrojt739[address] [place], [place] [address]Dr. Elba Raj MCV (RBC) [Entitic vol] 84.8 fL Normal 80.0-94.0 [facility] Comment on above: Performed By: #### C BC ####[facility] Cbojuhomhn635[address] [place], [place] [address]Dr. Elba Raj MONO # 0.8 103/ul Normal 0.3-0.8 [facility] Comment on above: Performed By: #### C BC ####[facility] Gxlcjbaver8[address] [place], [place] [address]Dr. Nereydasiobhan Anthony Monocytes/100 WBC (Bld) 6.7 % Normal 1.7-12.0 [facility] Comment on above: Performed By: #### C BC ####[facility] Bumdeiqzwh[address] [place], [place] [address]DrLatoya Dawnsiobhan Raj NEUT # 11.0 103/ul Critically high 1.4-6.5 [facility] Comment on above: Performed By: #### C BC ####[facility] Swyhjacrqs9044 [place] [phone]. Elba Anthony Neutrophils/100 WBC (Bld) 90.3 % Critically high 43.0-75.0 [facility] Comment on above: Performed By: #### C BC ####[facility] Uiilcstnke0904 [place] [phone]. Elba Anthony Platelet mean volume (Bld) [Entitic vol] 10.8 fL Normal 9.5-13.5 [facility] Comment on above: Performed By: #### C BC ####[facility] Dxkvkxnyjx4905 [place] [phone]. Elba Anthony PLT 130 103/ul Critically low 150-450 [facility] Comment on above: Performed By: #### C BC ####[facility] Yrnzgzkrnl6811 [place] [address]Dr. Elba Anthony RBC 3.75 106/ul Critically low 4.70-6.10 [facility] Comment on above: Performed By: #### C BC ####[facility] Sghispdvcy7517 [place] [phone]. Elba Anthony WBC 12.2 103/ul Critically high 4.0-11.0 [facility] Comment on above: Performed By: #### C BC ####[facility] Xftqkudnzb8583 [place] [phone]. Elba Anthony CRPon 12-13-2021 CRP [Mass/Vol] mg/L Critically high <=1.0 [facility] Comment on above: Performed By: #### C MP, CRP ####[facility] Qjbmcsxucq8735 [place] [address]Dr. Nereydasiobhan Anthony ECHO LIMITED STUDYon ECHO LIMITED STUDY Normal [facility] PROF 14(COMP METB)on Albumin [Mass/Vol] 2.9 g/dL Critically low 3.4-5.0 [facility] Comment on above: Performed By: #### C MP, CRP ####[facility] Crzzpglayx[address] [place], [place] [address]Dr. Elba Anthony Albumin/Globulin [Mass ratio] 0.7 {ratio} Normal [facility] Comment on above: Performed By: #### C MP, CRP ####[facility] Rzvsmlxubd11[address] [place] [address]Dr. Elba Anthony ALP [Catalytic activity/Vol] 88 U/L Normal 46-116 [facility] Comment on above: Performed By: #### C MP, CRP ####[facility] Dqdrfyldif[address] [place], [place] [address]Dr. Elba Anthony ALT [Catalytic activity/Vol] 15 U/L Critically low 16-63 [facility] Comment on above: Performed By: #### C MP, CRP ####[facility] Fihcgnmfby[address] [place], [place] [address]Dr. Elba Anthony Anion gap [Moles/Vol] 15.1 mmol/L Normal [facility] Comment on above: Performed By: #### C MP, CRP ####[facility] Deaebtbdkt47[address] [place], [place] [address]Dr. Elba Anthony AST [Catalytic activity/Vol] 14 U/L Critically low 15-37 [facility] Comment on above: Performed By: #### C MP, CRP ####[facility] Asvpdjwsio484[address] [place], [place] [address]Dr. Elba Anthony Bilirubin [Mass/Vol] 1.5 mg/dL Critically high 0.2-1.3 [facility] Comment on above: Performed By: #### C MP, CRP ####[facility] Ypguurvexy205[address] [place], [place] [address]Dr. Elba Anthony Calcium [Mass/Vol] 8.6 mg/dL Normal 8.5-10.1 [facility] Comment on above: Performed By: #### C MP, CRP ####[facility] Hntvwjfzjn318[address] [place], [place] [address]Dr. Elba Anthony Chloride [Moles/Vol] 99 mmol/L Normal 98-107 [facility] Comment on above: Performed By: #### C MP, CRP ####[facility] Rnfnohmpng504[address] [place], [place] [address]Dr. Yilan Anthony CO2 [Moles/Vol] 24.3 mmol/L Normal 22.0-30.0 [facility] Comment on above: Performed By: #### C MP, CRP ####[facility] Ztlbhmvvhy[address] [place], [place] [address]Dr. Elba Anthony Creatinine [Mass/Vol] 2.52 mg/dL Critically high 0.66-1.25 [facility] Comment on above: Performed By: #### C MP, CRP ####[facility] Orfzjskmul254[address] [place], [place] [address]Dr. Elba Anthony EGFR-AF TUVALUAN 31 mL/min/1.73m2 Critically low >=60 [facility] Comment on above: Performed By: #### C MP, CRP ####[facility] Rfvpdohlsa[address] [place], [place] [address]Dr. Elba Anthony EGFR-NON AF TUVALUAN 25 mL/min/1.73m2 Critically low >=60 [facility] Comment on above: Performed By: #### C MP, CRP ####[facility] Vyqxiwxszc978[address] [place], [place] [address]Dr. Elba Anthony Globulin (S) [Mass/Vol] 3.9 g/dL Normal [facility] Comment on above: Performed By: #### C MP, CRP ####[facility] Hfblhwonhb124[address] [place], [place] [address]Dr. Elba Anthony Glucose [Mass/Vol] 133 mg/dL Critically high 74-106 T [facility] Comment on above: Performed By: #### C MP, CRP ####[facility] Lzsidwkjgv720[address] [place], [place] [address]Dr. Elba Anthony Potassium [Moles/Vol] 4.4 mmol/L Normal 3.4-5.0 [facility] Comment on above: Performed By: #### C MP, CRP ####[facility] Grjeojthjg549[address] [place], [place] [address]Dr. Elba Anthony Protein [Mass/Vol] 6.8 g/dL Normal 6.1-8.2 [facility] Comment on above: Performed By: #### C MP, CRP ####[facility] Jksbwafnnm8[address] [place] [address]Dr. Elba Anthony Sodium [Moles/Vol] 134 mmol/L Critically low 137-145 [facility] Comment on above: Performed By: #### C MP, CRP ####[facility] Ctkgidzcvx2237 [place] [address]Dr. Elba Anthony Urea nitrogen [Mass/Vol] 47.0 mg/dL Critically high 7.0-18.0 [facility] Comment on above: Performed By: #### C MP, CRP ####[facility] Lqukttvhdc6244 [place] [address]Dr. Elba Anthony Urea nitrogen/Creatinine [Mass ratio] 18.7 mg/mg Normal [facility] Comment on above: Performed By: #### C MP, CRP ####[facility] Nrsginrwqk358[address] [place], [place] [address]Dr. Elba Anthony T3, TOTAL (TRIIODOTHYRONINE) on 12-13-2021 T3, TOTAL 66 ng/dL Critically low 71-180 [facility] Comment on above: Performed By: #### T 3TOTAL ####[facility] Lkfvkcfrgs[address] [place], [place] [address]Dr. Elba Anthony US KIDNEYS BLADDERon 022 US KIDNEYS BLADDER Normal [facility] BLOOD CULTURE ID PANELon A. baumannii Not detected Normal [facility] Comment on above: Performed By: #### B PABLO ####[facility] Gtdkxriurs[address] [place], [place] [address]Dr. Elba Anthony BCID CONTROLS PASSED Normal [facility] Comment on above: Performed By: #### B PABLO ####[facility] Feevcbivii[address] [place] [address]Dr. Elba Anthony BCIDBTHD BLOOD CULTURE BOTTLE INFORMATION Normal [facility] Comment on above: Performed By: #### B PABLO ####[facility] Yezlnjqest[address] [place], [place] [address]Dr. Elba Anthony BCIDHD1 ANTIMICROBIAL RESIST ANCE GENES Normal [facility] Comment on above: Performed By: #### B PABLO ####[facility] Bcrudweiov7847 [place] [phone]. Elba Anthony BCIDHD2 SEE BELOW [facility] Comment on above: Result Comment: KPC- carbapenem resistance gene, mecA- methecillin resistance gene, van A/B- vancomycin resistance gene Note: Antimicrobial resitance can occur via multiple mechanisms. A Not Detected result for the [employer] antomicrobial resistance gene assays does not indicate antimicrobial susceptibility. Subculturing is required for specis identificationand susceptibility testing of isolates. Performed By: #### B PABLO ####[facility] Xvcknkxbvs24[address] [place] [address]Dr. Elba Anthony BCIDHD3 Positive [facility] Comment on above: Performed By: #### B PABLO ####[facility] Eywynyvaja[address] [place], [place] [address]Dr. Elba Anthony BCIDHD4 Negative [facility] Comment on above: Performed By: #### B PABLO ####[facility] Jxmkrcysrp[address] [place], [place] [address]Dr. Elba Anthony BCIDHD5 YEAST Normal [facility] Comment on above: Performed By: #### B PABLO ####[facility] Nkypdgarpr[address] [place], [place] [address]Dr. Elba Anthony BCIDHD6 SEE BELOW [facility] Comment on above: Result Comment: Note : All genus and species BCID [employer] results will be verified post subculturing via Maldi-Tof MS testing methodology. Performed By: #### B PABLO ####[facility] Gsxerluhxr[address] [place], [place] [address]Dr. Elba Anthony Bottle Set: Set 1 Normal [facility] Comment on above: Performed By: #### B PABLO ####[facility] Amonjgplhd1521 [place] [phone]. Elba Nathony Bottle: Aerobic Normal [facility] Comment on above: Performed By: #### B PABLO ####[facility] Xufotztlmo2916 [place] [phone]. Elba Anthony Lorelei albicans Not detected Normal [facility] Comment on above: Performed By: #### B PABLO ####[facility] Bbnhvounch8520 [place] [address]Dr. Yisiobhan Anthony Lorelei glabrata Not detected Normal [facility] Comment on above: Performed By: #### B PABLO ####[facility] Nkwjutkyef[address] [place], [place] [address]Dr. Yilan Anthony Lorelei Krusei Not detected Normal [facility] Comment on above: Performed By: #### B PABLO ####[facility] Bmrfksbdio[address] [place], [place] [address]Dr. Yilan Anthony Lorelei Parapsilosis Not detected Normal [facility] Comment on above: Performed By: #### B PABLO ####[facility] Mekjukxrrp[address] [place], [place] [address]Dr. Yilan Anthony Lorelei Tropicalis Not detected Normal [facility] Comment on above: Performed By: #### B PABLO ####[facility] Lfwgwdsrvp[address] [place], [place] [address]Dr. Yisiobhan Anthony E. Cloacae complex Not detected Normal [facility] Comment on above: Performed By: #### B PABLO ####[facility] Wtuuxronnl[address] [place], [place] [address]Dr. Elba Anthony Enterobacteriaceae Not detected Normal [facility] Comment on above: Performed By: #### B PABLO ####[facility] Xlpccpwkfs[address] [place], [place] [address]Dr. Yisiobhan Anthony Enterococcus Not detected Normal [facility] Comment on above: Performed By: #### B PABLO ####[facility] Pcihqfjyzq[address] [place], [place] [address]Dr. Yilan Anthony Escheria coli Not detected Normal [facility] Comment on above: Performed By: #### B PABLO ####[facility] Lwyvovgcie[address] [place], [place] [address]Dr. Yilan Anthony K. oxytoca Not detected Normal [facility] Comment on above: Performed By: #### B PABLO ####[facility] Qnrngfbilu[address] [place], [place] [address]Dr. Yilan Anthony K. pneumoniae Not detected Normal [facility] Comment on above: Performed By: #### B PABLO ####[facility] Ahcnfcrrdq78[address] [place] [address]Dr. Elba Anthony KPC Resistant Gene Not detected Normal [facility] Comment on above: Performed By: #### B PABLO ####[facility] Zbckbxadmu39[address] [place] [address]Dr. Elba Anthony List. monocytogenes Not detected Normal [facility] Comment on above: Performed By: #### B PABLO ####[facility] [address] [place], [place] [address]Dr. Elba Anthony mecA Resistant Gene Not Applicable Normal T [facility] Comment on above: Performed By: #### B PABLO ####[facility] Tocffcchww[address] [place], [place] [address]Dr. Elba Anthony Proteus Not detected Normal [facility] Comment on above: Performed By: #### B PABLO ####[facility] Bzuzmujeou[address] [place], [place] [address]Dr. Elba Anthony Pseud. aeruginosa Detected Critically abnormal [facility] Comment on above: Performed By: #### B PABLO ####[facility] Gjtqiketfj[address] [place], [place] [address]Dr. Elba Anthony Seratia marcescens Not detected Normal [facility] Comment on above: Performed By: #### B PABLO ####[facility] Htkcmnbqxe[address] [place], [place] [address]Dr. Elba Anthony Site: Left hand Normal [facility] Comment on above: Performed By: #### B PABLO ####[facility] Nuiovvsppp[address] [place], [place] [address]Dr. Elba Anthony Staph. aureus Not detected Normal [facility] Comment on above: Performed By: #### B PABLO ####[facility] V[address]zeyld[address] [place], [place] [address]Dr. Elba Anthony Staphylococcus Not detected Normal [facility] Comment on above: Performed By: #### B PABLO ####[facility] H[address]zh[address] [place], [place] [address]Dr. Elba Anthony Strep. agalactiae Not detected Normal [facility] Comment on above: Performed By: #### B PABLO ####[facility] [address]ckxxvig[address] [place] [address]Dr. Elba Anthony Strep. pneumoniae Not detected Normal [facility] Comment on above: Performed By: #### B PABLO ####[facility] Toilwyvcjv[address] [place], [place] [address]Dr. Elba Anthony Strep. pyogenes Not detected Normal [facility] Comment on above: Performed By: #### B PABLO ####[facility] [address]pic[address]tozp[address] [place], [place] [address]Dr. Elba Anthony Streptococcus Not detected Normal [facility] Comment on above: Performed By: #### B PABLO ####[facility] [address]ucgrjgzq[address] [place], [place] [address]Dr. Elba Anthony Soledad/B Resist. Gene Not Applicable Normal T [facility] Comment on above: Performed By: #### B PABLO ####[facility] Nlhgkptipw[address] [place], [place] [address]Dr. Elba Anthony BNPon 12-12-2021 Natriuretic peptide B (Bld) [Mass/Vol] 10495.0 pg/mL Critically high <=900.0 [facility] Comment on above: Result Comment: test repeated critical value verified Performed By: #### B MP, BNP, HSTROPN ####[facility] Zwehusanrv[address] [place], [place] [address]Dr. Elba Anthony CARDIAC FADY 3-6on 2 CK [Catalytic activity/Vol] 29 U/L Critically low 55-170 [facility] Comment on above: Performed By: #### C MREP ####[facility] [address]rayq[address]qj[address] [place], [place] [address]Dr. Elba Anthony CK.MB [Mass/Vol] 1.26 ng/mL Normal <=2.37 [facility] Comment on above: Performed By: #### C MREP ####[facility] Wuvomlriim[address] [place], [place] [address]Dr. Elba Anthony HSTROP 27.4 pg/mL Normal 4.0-42.2 [facility] Comment on above: Result Comment: CUT- OFF POINTS HAVE BEEN ESTABLISHED BASED ON THE FOURTH UNIVERSAL DEFINITIONS OF MYOCARDIALINFARCTION. THE UPPER REFERENCE LIMIT (URL) OF TROPONIN, DEFINED THE 99TH PERCENTILE OFcTnI DISTRIBUTION IN A REFERENCE POPULATION, HAS BEEN CONFIRMED THE DECISION THRESHOLDFOR [place] DIAGNOSIS. Performed By: #### C LEONIDES ####[facility] B[address]zvixdaq[address] [place] [address]Dr. Elba Anthony CK [Catalytic activity/Vol] 23 U/L Critically low 55-170 [facility] Comment on above: Performed By: #### C KARENP ####[facility] W[address]kufwgwo[address] [place] [address]Dr. Ebla Anthony CK.MB [Mass/Vol] 1.41 ng/mL Normal <=2.37 [facility] Comment on above: Performed By: #### C LEONIDES ####[facility] Cjmadokoii[address] [place], [place] [address]Dr. Elba Anthony HSTROP 27.2 pg/mL Normal 4.0-42.2 [facility] Comment on above: Result Comment: CUT- OFF POINTS HAVE BEEN ESTABLISHED BASED ON THE FOURTH UNIVERSAL DEFINITIONS OF MYOCARDIALINFARCTION. THE UPPER REFERENCE LIMIT (URL) OF TROPONIN, DEFINED THE 99TH PERCENTILE OFcTnI DISTRIBUTION IN A REFERENCE POPULATION, HAS BEEN CONFIRMED THE DECISION THRESHOLDFOR [place] DIAGNOSIS. Performed By: #### C LEONIDES ####[facility] Oleqyrqzvm[address] [place], [place] [address]Dr. Elba Anthony CBC W MANUAL DIFFon 12-13-19 22 ATYPICAL LYMPH # Normal [facility] Comment on above: Performed By: #### Abdoul DIANA ####[facility] [address]ycbv[address] [place] [address]Dr. Elba Anthony ATYPICAL LYMPH % Normal [facility] Comment on above: Performed By: #### Abdoul DIANA ####[facility] [address]iv[address] [place] [address]Dr. Elba Anthony BAND # Normal 0.0-0.3 [facility] Comment on above: Performed By: #### Abdoul DIANA ####[facility] [address] [place], [place] [address]Dr. Elba Anthony BAND % Normal 0-5 [facility] Comment on above: Performed By: #### C BCVINCENT ####[facility] I[address]uqzq[address] [place] [id number]. Elba Anthony BASOM # 0.00 103/ul Normal 0.00-0.10 [facility] Comment on above: Performed By: #### C ADALGISA ####[facility] Xnwnzlelfa[address] [place] [id number]. Elba Anthony BASOM % 0.0 % Critically low 0.2-2.0 [facility] Comment on above: Performed By: #### C BCVINCENT ####[facility] Asloggrdob45[address] [place] [id number]. Elba Anthony BLAST # Normal [facility] Comment on above: Performed By: #### C ADALGISA ####[facility] Dxnhdtebhl8[address] [place] [address]Dr. Elba Anthony BLAST % Normal [facility] Comment on above: Performed By: #### C ADALGISA ####[facility] Ruvwzrxfcg[address] [place], [place] [address]Dr. Elba Anthony CORRECTED WBC Normal 4.0-11.0 [facility] Comment on above: Performed By: #### C ADALGISA ####[facility] Pgwdvqboau[address] [place], [place] [address]Dr. Elba Anthony EOS # 0.00 103/ul Normal 0.00-0.70 [facility] Comment on above: Performed By: #### C ADALGISA ####[facility] Dgiqytzygm8[address] [place] [address]Dr. Elba Anthony EOS% 0.0 % Critically low 0.9-7.0 [facility] Comment on above: Performed By: #### C ADALGISA ####[facility] Pfvphthvec[address] [place], [place] [address]Dr. Elba Anthony HCT 34.1 % Critically low 42.0-54.0 [facility] Comment on above: Performed By: #### C ADALGISA ####[facility] C[address]ylzlm[address] [place], [place] [address]Dr. Elba Anthony HGB 10.1 g/dl Critically low 14.0-18.0 [facility] Comment on above: Performed By: #### Abdoul DIANA ####[facility] Yvwlfqyjpv42[address] [place] [address]Dr. Elba Anthony LYMPHM # 0.32 103/ul Critically low 1.20-3.80 [facility] Comment on above: Performed By: #### Abdoul DIANA ####[facility] Hgnjwcylzl[address] [place] [address]Dr. Elba Anthony LYMPHM% 3.0 % Critically low 20.5-60.0 [facility] Comment on above: Performed By: #### Abdoul DIANA ####[facility] Envxngwhqd5[address] [place] [address]Dr. Elba Anthony MCH 25.5 pg Critically low 25.9-34.0 [facility] Comment on above: Performed By: #### Abdoul DIANA ####[facility] Wefujqwudq3[address] [place] [address]Dr. Elba Anthony MCHC 29.6 g/dl Critically low 29.9-35.2 [facility] Comment on above: Performed By: #### Abdoul DIANA ####[facility] Dqcqnnmzxr04[address] [place] [address]Dr. Elba Anthony MCV 86.1 fL Normal 80.0-94.0 [facility] Comment on above: Performed By: #### Abdoul DIANA ####[facility] Xizrmswicy[address] [place] [address]Dr. Elba Anthony METAMYELOCYTE # Normal [facility] Comment on above: Performed By: #### Abdoul DIANA ####[facility] Sohunnccmy39[address] [place] [id number]. Elba Anthony METAMYELOCYTE % Normal [facility] Comment on above: Performed By: #### C ADALGISA ####[facility] Ueuwkxxkmr60[address] [place] [address]Dr. Elba Anthony MONOM# 0.11 103/ul Critically low 0.30-0.80 [facility] Comment on above: Performed By: #### Abdoul DIANA ####[facility] Fhcuxvlenj4326 [place] [id number]. Elba Anthony MONOM% 1.0 % Critically low 1.7-12.0 [facility] Comment on above: Performed By: #### C ADALGISA ####[facility] Wmyxcwqcyl14[address] [place] [id number]. Elba Anthony MPV 10.4 fL Normal 9.5-13.5 [facility] Comment on above: Performed By: #### C ADALGISA ####[facility] Lqfmyjlsol66[address] [place] [id number]. Elba Anthony MYELOCYTE # Normal [facility] Comment on above: Performed By: #### C ADALGISA ####[facility] Gukswwwtmp8[address] [place] [address]Dr. Elba Anthony MYELOCYTE % Normal [facility] Comment on above: Performed By: #### C ADALGISA ####[facility] Qffsgyzszm16[address] [place] [address]Dr. Elba Anthony NRBC Normal [facility] Comment on above: Performed By: #### C ADALGISA ####[facility] Wmqwcwkilt8472 [place] [phone]. Elba Anthony OVALOCYTES SLIGHT Normal [facility] Comment on above: Performed By: #### C ADALGISA ####[facility] Cxdhlvbxbu9645 [place] [phone]. Elba Anthony PLT 154 103/ul Normal 150-450 [facility] Comment on above: Performed By: #### C ADALGISA ####[facility] Omtrtlnahk9372 [place] [phone]. Elba Anthony POIKILOCYTOSIS 1+ Normal [facility] Comment on above: Performed By: #### C ADALGISA ####[facility] Thzrutpxuq7876 [place] [phone]. Elba Anthony RBC 3.96 106/ul Critically low 4.70-6.10 [facility] Comment on above: Performed By: #### C ADALGISA ####[facility] [address] [place], [place] [address]Dr. Elba Anthony RDW 19.0 % Critically high 11.0-15.0 [facility] Comment on above: Performed By: #### C BCMAN ####[facility] Mldiybqiiq75[address] [place] [address]Dr. Elba Anthony SEG # 10.37 103/ul Critically high 1.40-6.50 [facility] Comment on above: Performed By: #### C BCMAN ####[facility] Zmrpedjjpb3387 [place] [address]Dr. Elba Anthony SEG % 96.0 % Critically high 43.0-75.0 [facility] Comment on above: Performed By: #### C BCMAN ####[facility] [address]zzmbzj[address] [place], [place] [address]Dr. Elba Anthony TEAR DROP CELLS SLIGHT Normal [facility] Comment on above: Performed By: #### C BCMAN ####[facility] Arcqgbulfs[address] [place], [place] [address]Dr. Elba Anthony WBC 10.8 103/ul Normal 4.0-11.0 [facility] Comment on above: Performed By: #### C BCMAN ####[facility] Timinzjblr[address] [place], [place] [address]Dr. Elba Anthony CRPon 12-12-2021 CRP 3.1 mg/dL Critically high <=1.0 [facility] Comment on above: Performed By: #### C RP, TSH, T4 ####[facility] Qtxxluljly[address] [place], [place] [address]Dr. Elba Anthony CULTURE BLOODon 12-12-2021 Microscopic examination of blood, culture Culture Observations: Positive blood culture. Aerobic & anaerobic bottles. BCID=Pseudomonas aeruginosa Culture Observations: Sending to [facility] for workup. Normal [facility] Comment on above: Performed By: #### B LDCX2 ####[facility] [address]hk[address] [place], [place] [address]Dr. Elba Anthony Microscopic examination of blood, culture Culture Observations: Positive blood culture. Aerobic bottle. BCID= Pseudomonas aeruginosa. Culture Observations: Sending to [facility] for workup. Culture Observations: NO GROWTH AT 5 DAYS. ANAEROBIC BOTTLE Normal [facility] Comment on above: Performed By: #### B LDCX1 ####[facility] Vxckgfnhga44[address] [place], [place] [address]NhLatoya Anthony Covid-19 PCR (CVDTB)on SARS-CoV-2 (COVID-19) RNA ELIZABETH+probe Ql (Unsp spec) Not detected Normal NOT DETECTED [facility] Comment on above: Result Comment: When diagnostic testing is negative, the possibility of a false negative should be considered inthe context of a patient's recent exposures and the presence of clinical signs and symptomsconsistent with SARS-CoV-2.This test is not yet approved or cleared by the [place] Food and Drug Administration (FDA).This test was developed by [employer], [place], [place]. The performance characteristics ofthis test were validated by [facility]. The results are not intended to beused as the sole means for clinical diagnosis or patient management decisions. The [facility] is authorized under Clinical Laboratory Improvement Amendments (CLIA) to perform high-complexity testing.This test is not yet approved or cleared by the [place] FDA. When there are no FDA-approved or cleared tests available, and other criteria are met, FDA can make tests available under an emergency access mechanism called an Emergency Use Authorization (EUA). The EUA for this test is supported by the [employer] of Health and Human Service's declaration that [...] be used). Performed By: #### C VDTBH ####[facility] Cujlbzzaqp45[address] [place] [id number] Anthony LACTATE/LACTIC ACIDon 2021 Lactate [Moles/Vol] 2.0 mmol/L Normal 0.7-2.0 [facility] Comment on above: Performed By: #### L ACT ####[facility] Lfgibjqdud2267 [place] [phone] Arreola Anthony Lactate [Moles/Vol] 1.7 mmol/L Normal 0.7-2.0 [facility] Comment on above: Performed By: #### L ACT ####[facility] Slhfmpixmx[address] [place], [place] [address]Dr. Nereydasiobhan Anthony PROF CHEM 8 (BAS METB)on Anion gap [Moles/Vol] 14.7 mmol/L Normal [facility] Comment on above: Performed By: #### B MP, BNP, HSTROPN ####[facility] Uyzylkilzo[address] [place], [place] [address]Dr. Elba Anthony Calcium [Mass/Vol] 8.6 mg/dL Normal 8.5-10.1 [facility] Comment on above: Performed By: #### B MP, BNP, HSTROPN ####[facility] Vkyohsguju[address] [place], [place] [address]Dr. Elba Anthony Chloride [Moles/Vol] 102 mmol/L Normal 98-107 [facility] Comment on above: Performed By: #### B MP, BNP, HSTROPN ####[facility] Tsvlutqbvp[address] [place], [place] [address]Dr. Elba Anthony CO2 [Moles/Vol] 25.4 mmol/L Normal 22.0-30.0 [facility] Comment on above: Performed By: #### B MP, BNP, HSTROPN ####[facility] Bemtjugodr[address] [place], [place] [address]Dr. Elba Anthony Creatinine [Mass/Vol] 2.29 mg/dL Critically high 0.66-1.25 [facility] Comment on above: Performed By: #### B MP, BNP, HSTROPN ####[facility] Pqjnejjeiy[address] [place], [place] [address]Dr. Elba Anthony EGFR-AF TUVALUAN 35 mL/min/1.73m2 Critically low >=60 [facility] Comment on above: Performed By: #### B MP, BNP, HSTROPN ####[facility] Rflzmsanvu[address] [place], [place] [address]Dr. Elba Anthony EGFR-NON AF TUVALUAN 28 mL/min/1.73m2 Critically low >=60 [facility] Comment on above: Performed By: #### B MP, BNP, HSTROPN ####[facility] Qkagnccwth2[address] [place] [address]Dr. Elba Anthony Glucose [Mass/Vol] 130 mg/dL Critically high 74-106 T [facility] Comment on above: Performed By: #### B MP, BNP, HSTROPN ####[facility] Bkgyemicpp7619 [place] [address]Dr. Elba Anthony Potassium [Moles/Vol] 4.1 mmol/L Normal 3.4-5.0 [facility] Comment on above: Performed By: #### B MP, BNP, HSTROPN ####[facility] Mjbzvdekpm0385 [place] [address]Dr. Elba Anthony Sodium [Moles/Vol] 138 mmol/L Normal 137-145 [facility] Comment on above: Performed By: #### B MP, BNP, HSTROPN ####[facility] Rrrrpuwbie2336 [place] [address]Dr. Elba Anthony Urea nitrogen [Mass/Vol] 43.0 mg/dL Critically high 7.0-18.0 [facility] Comment on above: Performed By: #### B MP, BNP, HSTROPN ####[facility] Aockqagxty[address] [place], [place] [address]Dr. Elba Anthony Urea nitrogen/Creatinine [Mass ratio] 18.8 mg/mg Normal [facility] Comment on above: Performed By: #### B MP, BNP, HSTROPN ####[facility] Lmoajtybkb[address] [place], [place] [address]Dr. Elba Raj T4on 12-12-2021 T4 [Mass/Vol] 11.10 ug/dL Critically high 5.53-11.00 [facility] Comment on above: Performed By: #### C RP, TSH, T4 ####[facility] Ytonhsbbrt[address] [place], [place] [address]Dr. Elba Raj TROPONIN, HIGH SENSITIVITYon 12-12-2021 HSTROP 26.2 pg/mL Normal 4.0-42.2 [facility] Comment on above: Result Comment: CUT- OFF POINTS HAVE BEEN ESTABLISHED BASED ON THE FOURTH UNIVERSAL DEFINITIONS OF MYOCARDIALINFARCTION. THE UPPER REFERENCE LIMIT (URL) OF TROPONIN, DEFINED THE 99TH PERCENTILE OFcTnI DISTRIBUTION IN A REFERENCE POPULATION, HAS BEEN CONFIRMED THE DECISION THRESHOLDFOR [place] DIAGNOSIS. Performed By: #### B MP, BNP, HSTROPN ####[facility] Fvpikjyiup[address] [place] [id number]. Elba Anthony TSHon 12-12-2021 TSH 1.233 uIU/mL Normal 0.470-4.680 [facility] Comment on above: Performed By: #### C RP, TSH, T4 ####[facility] Fotghkhkjf[address] [place] [address]Dr. Elba Anthony TSH RANGE SEE BELOW Normal [facility] Comment on above: Result Comment: <0.3 4 UIU/ml HYPERTHYROID 0.34-5.60 UIU/ml EUTHYROID >5.60 UIU/ml HYPOTHYROID Performed By: #### C RP, TSH, T4 ####[facility] Pgqbjrqleq13[address] [place] [address]Dr. Elba Anthony US ARLIN DOP LEG RTon 12-13-19 22 US ARLIN DOP LEG RT Normal [facility] XR TIB_FIB RT 2Von 2 XR TIB_FIB RT 2V Normal [facility] APTTon 08-01-2021 aPTT Coag (Bld) [Time] 34.5 s Normal 25.0-35.0 Th e [facility] Comment on above: Result Comment: ALL RESULTS [...] PURPOSE. Performed By: #### 5 0103 #### [facility] [address] BASIC METABOLIC PANELon 11-2 Calcium [Mass/Vol] 8.6 mg/dL Normal 8.6-10.3 The [facility] Comment on above: Order Comment: No: D o not add to previous draw Performed By: #### 3 2044 #### [facility] [address] [place] [address], [place] Chloride [Moles/Vol] 108 mmol/L High 98-107 The [facility] Comment on above: Order Comment: No: D o not add to previous draw Performed By: #### 3 2044 #### [facility] [address] [place] [address], [place] CO2 [Moles/Vol] 20 mmol/L Low 21-31 The [facility] Comment on above: Order Comment: No: D o not add to previous draw Performed By: #### 3 2044 #### [facility] [address] [place] [address], [place] Creatinine [Mass/Vol] 2.66 mg/dL High 0.70-1.30 The [facility] Comment on above: Order Comment: No: D o not add to previous draw Performed By: #### 3 2044 #### [facility] [address] [place] [address], [place] eGFR- 29 ml/min/1.73sq m Abnormal >60 The [facility] Comment on above: Order Comment: No: D o not add to previous draw Performed By: #### 3 2044 #### [facility] [address] [place] [address], [place] eGFR- non- 24 ml/min/1.73sq m Abnormal >60 The [facility] Comment on above: Order Comment: No: D o not add to previous draw Performed By: #### 3 2044 #### [facility] [address] [place] [address], [place] Glucose [Mass/Vol] 125 mg/dL High 70-100 The [facility] Comment on above: Order Comment: No: D o not add to previous draw Performed By: #### 3 2044 #### [facility] [address] [place] [address], [place] Potassium [Moles/Vol] 4.4 mmol/L Normal 3.5-5.1 The [facility] Comment on above: Order Comment: No: D o not add to previous draw Performed By: #### 3 2044 #### [facility] [address] [place] [address], [place] Sodium [Moles/Vol] 138 mmol/L Normal 136-145 The [facility] Comment on above: Order Comment: No: D o not add to previous draw Performed By: #### 3 2044 #### [facility] [address] [place] [address], [place] Urea nitrogen [Mass/Vol] 54 mg/dL High 7-25 The [facility] Comment on above: Order Comment: No: D o not add to previous draw Performed By: #### 3 2044 #### [facility] [address] [place] [address], [place] Calcium [Mass/Vol] 8.5 mg/dL Low 8.6-10.3 The [facility] Comment on above: Order Comment: No: D o not add to previous draw Performed By: #### 5 102 #### [facility] [address] [place] [address], [place] Chloride [Moles/Vol] 107 mmol/L Normal 98-107 The [facility] Comment on above: Order Comment: No: D o not add to previous draw Performed By: #### 5 102 #### [facility] [address] [place] [address], [place] CO2 [Moles/Vol] 23 mmol/L Normal 21-31 The [facility] Comment on above: Order Comment: No: D o not add to previous draw Performed By: #### 5 102 #### [facility] [address] [place] [address], [place] Creatinine [Mass/Vol] 2.86 mg/dL High 0.70-1.30 The [facility] Comment on above: Order Comment: No: D o not add to previous draw Performed By: #### 5 0103 #### [facility] [address] [place] [address], [place] eGFR- 27 ml/min/1.73sq m Abnormal >60 The [facility] Comment on above: Order Comment: No: D o not add to previous draw Performed By: #### 5 0103 #### [facility] [address] [place] [address], [place] eGFR- non- 22 ml/min/1.73sq m Abnormal >60 The [facility] Comment on above: Order Comment: No: D o not add to previous draw Performed By: #### 5 0103 #### [facility] [address] [place] [address], [place] Glucose [Mass/Vol] 114 mg/dL High 70-100 The [facility] Comment on above: Order Comment: No: D o not add to previous draw Performed By: #### 5 0103 #### [facility] [address] [place] [address], [place] Potassium [Moles/Vol] 4.5 mmol/L Normal 3.5-5.1 The [facility] Comment on above: Order Comment: No: D o not add to previous draw Performed By: #### 5 0103 #### [facility] [address] [place] [address], [place] Sodium [Moles/Vol] 138 mmol/L Normal 136-145 The [facility] Comment on above: Order Comment: No: D o not add to previous draw Performed By: #### 5 0103 #### [facility] [address] Urea nitrogen [Mass/Vol] 58 mg/dL High 7-25 The [facility] Comment on above: Order Comment: No: D o not add to previous draw Performed By: #### 5 0103 #### [facility] [address] [facility] [place] [address], [facility] CBC W/DIFFon 08-01-2021 ABS IMM GRANS 0.0 10*3/uL Normal 0.0-0.2 The [facility] Comment on above: Order Comment: No: D o not add to previous draw Performed By: #### 5 0103 #### [facility] [address] [place] [address], [facility] ABS NEUTROPHILS 5.7 10*3/uL Normal 1.6-7.6 The [facility] Comment on above: Order Comment: No: D o not add to previous draw Performed By: #### 5 0103 #### [facility] [address] [facility] [place] [address], [facility] Basophils (Bld) [#/Vol] 0.0 10*3/uL Normal 0.0-0.2 The [facility] Comment on above: Order Comment: No: D o not add to previous draw Performed By: #### 5 0103 #### [facility] [address] [place] [address], [facility] Basophils/100 WBC (Bld) 0.4 % Normal 0.0-1.0 The [facility] Comment on above: Order Comment: No: D o not add to previous draw Performed By: #### 5 0103 #### [facility] [address] [place] [address], [facility] Eosinophils (Bld) [#/Vol] 0.0 10*3/uL Normal 0.0-0.5 The [facility] Comment on above: Order Comment: No: D o not add to previous draw Performed By: #### 5 0103 #### [facility] [address] [place] [address], [facility] Eosinophils/100 WBC (Bld) 0.6 % Normal 0.0-6.0 The [facility] Comment on above: Order Comment: No: D o not add to previous draw Performed By: #### 5 0103 #### [facility] [address] [place] [address], [facility] Erythrocyte distribution width (RBC) [Ratio] 14.8 % Normal 11.5-15.0 The [facility] Comment on above: Order Comment: No: D o not add to previous draw Performed By: #### 5 0103 #### [facility] [address] [address], [facility] [facility] Hematocrit (Bld) [Volume fraction] 37.0 % Low 39.0-50.0 [facility] Comment on above: Order Comment: No: D o not add to previous draw Performed By: #### 5 0103 #### [facility] [address] Hemoglobin (Bld) [Mass/Vol] 11.4 g/dL Low 13.0-17.0 [facility] Comment on above: Order Comment: No: D o not add to previous draw Performed By: #### 5 0103 #### [facility] [address] [place] [address], [facility] IMMATURE GRANS 0.4 % Normal 0.0-1.0 [facility] Comment on above: Order Comment: No: D o not add to previous draw Performed By: #### 5 0103 #### [facility] [address] [place] [address], [facility] Lymphocytes (Bld) [#/Vol] 0.4 10*3/uL Low 1.2-4.0 [facility] Comment on above: Order Comment: No: D o not add to previous draw Performed By: #### 5 3 #### [facility] [address] [place] [address], [facility] Lymphocytes/100 WBC (Bld) 5.6 % Low 20.0-45.0 [facility] Comment on above: Order Comment: No: D o not add to previous draw Performed By: #### 5 0103 #### [facility] [address] [place] [id number], [facility] MCH (RBC) [Entitic mass] 27.9 pg Normal 27.0-33.0 [facility] Comment on above: Order Comment: No: D o not add to previous draw Performed By: #### 5 0103 #### [facility] [address] [place] [address], [facility] MCHC (RBC) [Mass/Vol] 30.8 g/dL Low 32.0-35.0 [facility] Comment on above: Order Comment: No: D o not add to previous draw Performed By: #### 5 0103 #### [facility] [address] [place] [address], [facility] MCV (RBC) [Entitic vol] 90.5 fL Normal 82.0-98.0 [facility] Comment on above: Order Comment: No: D o not add to previous draw Performed By: #### 5 0103 #### [facility] [address] [place] [address], [facility] Monocytes (Bld) [#/Vol] 0.6 10*3/uL Normal 0.1-1.0 [facility] Comment on above: Order Comment: No: D o not add to previous draw Performed By: #### 5 0103 #### [facility] [address] [place] [id number], [facility] MONOS 8.7 % Normal 5.0-12.0 [facility] Comment on above: Order Comment: No: D o not add to previous draw Performed By: #### 5 0103 #### [facility] [address] [place] [id number], [facility] Neutrophils/100 WBC (Bld) 84.3 % High 40.0-72.0 [facility] Comment on above: Order Comment: No: D o not add to previous draw Performed By: #### 5 0103 #### [facility] [address] [place] [address], [facility] Nucleated RBC/100 WBC (Bld) [Ratio] 0 % Normal 0-0 [facility] Comment on above: Order Comment: No: D o not add to previous draw Performed By: #### 5 0103 #### [facility] [address] [place] [address], [facility] PLAT CNT 144 10*3/uL Low 150-400 [facility] Comment on above: Order Comment: No: D o not add to previous draw Performed By: #### 5 0103 #### [facility] [address] [facility] [place] [address], [facility] RBC (Bld) [#/Vol] 4.09 10*6/uL Low 4.20-5.70 [facility] Comment on above: Order Comment: No: D o not add to previous draw Performed By: #### 5 0103 #### [facility] [address] [place] [address], [facility] WBC (Bld) [#/Vol] 6.75 10*3/uL Normal 4.00-10.60 [facility] Comment on above: Order Comment: No: D o not add to previous draw Performed By: #### 5 0103 #### [facility] [address] [facility] [place] [address], [facility] CHEST AND LATERALon 08-01-20 CHEST AND LATERAL [facility] Department of Radiology [address] [place] [id number] Patient Name: MAN PATEL : 1950 Sex: M Age: Race: White Pt. Location: [facility] Patient Status: I Ordered Date: 08/01/2021 7:00:00 [...] pneumothorax. Electronically signed: Dilcia Hernandez. Transcribed by: [email or web address], User Resident: Electronically Signed by: DILCIA HERNANDEZ @ 08/01/2021 08:57 AM Normal [facility] Comment on above: Order Comment: Check Pacemaker/AICD Lead Position, Chest X-ray PA \EANDE\ LAT in Dept ;DO NOT lift affected arm above shoulder. S/P pacemaker/ICD implant. Verify lead placement CPKon 08-01-2021 CK [Catalytic activity/Vol] 576 U/L High 30-223 [facility] Comment on above: Performed By: #### 5 0103 #### [facility] [address] [facility]. [address] Cardiovascular Lab Reporton 08-01-2021 Cardiovascular Lab Report [facility] #: [id number] Department of Physician: Inocencio Franks M.D. Medicine Service Date: 07/31/2021 Division of Birthdate: 1950 Cardiology Room #: 5AB [id number] Adult Cardiovascular Services [place] [address] Cardiovascular Laboratory Report INDICATION FOR PERMANENT PACEMAKER [...] Franks M.D. Date Trans: 08/01/2021 05:31 A/mmo [id number] Normal [facility] MAGNESIUM BLOODon 08-01-2021 Magnesium [Mass/Vol] 2.2 mg/dL Normal 1.9-2.7 [facility] Comment on above: Order Comment: No: D o not add to previous draw Performed By: #### 5 0103 #### [facility] [address] [facility]. [address] PHOSPHORUS BLOODon 1 Phosphate [Mass/Vol] 2.9 mg/dL Normal 2.5-5.0 [facility] Comment on above: Order Comment: No: D o not add to previous draw Performed By: #### 5 0103 #### [facility] [address] PROTHROMBIN TIMEon 1 INR Coag (PPP) [Relative time] 1.54 {INR} High 0.91-1.16 [facility] Comment on above: Order Comment: No: D [...] 1995;108:[id number]. Performed By: #### 5 0103 #### [facility] [address] [place] [address], [place] PT Coag (PPP) [Time] 18.4 s High 12.3-14.8 [facility] Comment on above: Order Comment: No: D o not add to previous draw Result Comment: ALL RESULTS MUST BE INTERPRETED WITH RESPECT TO BLOOD DRAWING ARTIFACT OR DILUTION ERROR OF ANTICOAGULANT AT THE TIME OF SAMPLING. Performed By: #### 5 0103 #### [facility] [address] [place] [address], [facility] INR Coag (PPP) [Relative time] 1.68 {INR} High 0.91-1.16 [facility] Comment on above: Result Comment: ACCC P [...] 1995;[id number]. Performed By: #### 5 0103 #### [facility] [address] [place] [address], [place] PT Coag (PPP) [Time] 19.7 s High 12.3-14.8 [facility] Comment on above: Result Comment: ALL RESULTS MUST BE INTERPRETED WITH RESPECT TO BLOOD DRAWING ARTIFACT OR DILUTION ERROR OF ANTICOAGULANT AT THE TIME OF SAMPLING. Performed By: #### 5 102 #### [facility] [address] [place] [address], [facility] URIC ACID BLOODon 08-01-2021 Urate [Mass/Vol] 10.1 mg/dL High 4.4-7.6 [facility] Comment on above: Performed By: #### 5 102 #### [facility] [address] [place] [address], [facility] BASIC METABOLIC PANELon 07-10 Calcium [Mass/Vol] 7.3 mg/dL Low 8.6-10.3 [facility] Comment on above: Performed By: #### 3 2044 #### [facility] [address] [place] [address], [facility] Chloride [Moles/Vol] 111 mmol/L High 98-107 [facility] Comment on above: Performed By: #### 3 2044 #### [facility] [address] [place] [address], [facility] CO2 [Moles/Vol] 17 mmol/L Low 21-31 [facility] Comment on above: Performed By: #### 3 2044 #### [facility] [address] [place] [address], [facility] Creatinine [Mass/Vol] 2.68 mg/dL High 0.70-1.30 [facility] Comment on above: Performed By: #### 3 2044 #### [facility] [address] [place] [address], [facility] eGFR- 29 ml/min/1.73sq m Abnormal >60 [facility] Comment on above: Performed By: #### 3 2044 #### [facility] [address] [place] [address], [facility] eGFR- non- 24 ml/min/1.73sq m Abnormal >60 [facility] Comment on above: Performed By: #### 3 2044 #### [facility] [address] [place] [address], [facility] Glucose [Mass/Vol] 147 mg/dL High 70-100 [facility] Comment on above: Performed By: #### 3 2044 #### [facility] [address] [place] [address], [facility] Potassium [Moles/Vol] 4.4 mmol/L Normal 3.5-5.1 [facility] Comment on above: Performed By: #### 3 2044 #### [facility] [address] [facility]. [address] Sodium [Moles/Vol] 138 mmol/L Normal 136-145 [facility] Comment on above: Performed By: #### 2044 #### [facility] [address] [facility]. [address] Urea nitrogen [Mass/Vol] 55 mg/dL High 7-25 [facility] Comment on above: Performed By: #### 2044 #### [facility] [address] [facility] [place] [address], [facility] CBC W/DIFFon 07-31-2021 ABS IMM GRANS 0.0 10*3/uL Normal 0.0-0.2 [facility] Comment on above: Performed By: #### 102 #### [facility] [address] [facility]. [address] ABS NEUTROPHILS 10.7 10*3/uL High 1.6-7.6 [facility] Comment on above: Performed By: #### 102 #### [facility] [address] [place] [address], [facility] Basophils (Bld) [#/Vol] 0.0 10*3/uL Normal 0.0-0.2 [facility] Comment on above: Performed By: #### 102 #### [facility] [address] [place] [address], [facility] Basophils/100 WBC (Bld) 0.3 % Normal 0.0-1.0 [facility] Comment on above: Performed By: #### 5 0103 #### [facility] [address] [place] [address], [facility] Eosinophils (Bld) [#/Vol] 0.1 10*3/uL Normal 0.0-0.5 [facility] Comment on above: Performed By: #### 5 0103 #### [facility] [address] [place] [address], [facility] Eosinophils/100 WBC (Bld) 0.4 % Normal 0.0-6.0 [facility] Comment on above: Performed By: #### 5 3 #### [facility] [address] [facility]. [address] Erythrocyte distribution width (RBC) [Ratio] 14.6 % Normal 11.5-15.0 [facility] Comment on above: Performed By: #### 5 0103 #### [facility] [address] Hematocrit (Bld) [Volume fraction] 44.3 % Normal 39.0-50.0 [facility] Comment on above: Performed By: #### 5 0103 #### [facility] [address] [facility] [place] [address], [facility] Hemoglobin (Bld) [Mass/Vol] 13.6 g/dL Normal 13.0-17.0 [facility] Comment on above: Performed By: #### 5 0103 #### [facility] [address] [place] [address], [facility] IMMATURE GRANS 0.3 % Normal 0.0-1.0 [facility] Comment on above: Performed By: #### 5 0103 #### [facility] [address] Lymphocytes (Bld) [#/Vol] 0.5 10*3/uL Low 1.2-4.0 [facility] Comment on above: Performed By: #### 5 0103 #### [facility] [address] Lymphocytes/100 WBC (Bld) 4.1 % Low 20.0-45.0 [facility] Comment on above: Performed By: #### 5 0103 #### [facility] [address] MCH (RBC) [Entitic mass] 27.6 pg Normal 27.0-33.0 [facility] Comment on above: Performed By: #### 5 3 #### [facility] [address] MCHC (RBC) [Mass/Vol] 30.7 g/dL Low 32.0-35.0 [facility] Comment on above: Performed By: #### 3 #### [facility] [address] [place] [address], [facility] MCV (RBC) [Entitic vol] 90.0 fL Normal 82.0-98.0 [facility] Comment on above: Performed By: #### 5 3 #### [facility] [address] [place] [address], [facility] Monocytes (Bld) [#/Vol] 1.0 10*3/uL Normal 0.1-1.0 [facility] Comment on above: Performed By: #### 5 0103 #### [facility] [address] [place] [address], [facility] MONOS 8.3 % Normal 5.0-12.0 [facility] Comment on above: Performed By: #### 5 3 #### [facility] [address] [place] [address], [facility] Neutrophils/100 WBC (Bld) 86.6 % High 40.0-72.0 [facility] Comment on above: Performed By: #### 5 0103 #### [facility] [address] [facility] [place] [address], [facility] Nucleated RBC/100 WBC (Bld) [Ratio] 0 % Normal 0-0 [facility] Comment on above: Performed By: #### 5 0103 #### [facility] [address] [place] [address], [facility] PLAT CNT 175 10*3/uL Normal 150-400 [facility] Comment on above: Performed By: #### 5 0103 #### [facility] [address] RBC (Bld) [#/Vol] 4.92 10*6/uL Normal 4.20-5.70 [facility] Comment on above: Performed By: #### 5 0103 #### [facility] [address] [facility] [place] [address], [facility] WBC (Bld) [#/Vol] 12.36 10*3/uL High 4.00-10.60 [facility] Comment on above: Performed By: #### 5 0103 #### [facility] [address] POC SARS COV2 ANTIGEN NEGATI VEon 07-31-2021 POC SARS COV2 ANTIGEN NEG Negative Normal NEGATIVE [facility] Comment on above: Result Comment: Nega tive [...] signs and symptoms consistent with COVID-19. The [employer] COVID-19 Ag Card is a lateral flow [...] of Accreditation. Performed By: #### 3 1977 ####[place] [id number] [address] PORTABLE CHEST 1 VIEWon 07-10 PORTABLE CHEST 1 VIEW [facility] Department of Radiology [address] [place] [address] Patient Name: MAN PATEL : 1950 Sex: M Age: Race: White Pt. Location: [facility] Patient Status: E Ordered Date: 07/31/2021 12:20:00 [...] sternotomy. Electronically signed: Rinku Agrawal. Transcribed by: [email or web address], User Resident: Electronically Signed by: RINKU AGRAWAL @ 07/31/2021 01:03 PM Normal [facility] Comment on above: Order Comment: Evalu ate for Aspiration TROPONIN-Ion 07-31-2021 Troponin I.cardiac [Mass/Vol] 0.07 ng/mL High 0.00-0.04 [facility] Comment on above: Result Comment: REFE RENCE RANGES: 0.00 - 0.04 ng/ml NORMAL 0.05 - 0.50 ng/ml INDETERMINATE > 0.50 ng/ml CONSISTENT WITH AN M.I. Performed By: #### 3 2044 #### [facility] [address] [facility]. [address] TSH3 WITH REFLEX FT4on 07-31 TSH 3RD GENERATION 1.98 uIU/mL Normal 0.34-5.60 [facility] Comment on above: Performed By: #### 3 2044 #### [facility] [address] [facility]. [address] Vital Signs Date Time Vital Sign Value Performing Clinician Facility 06-08-2024 13:54-0400 Body mass index (BMI) [Ratio] 43.5 kg/m2 [facility] 06-08-2024 13:47-0400 Body height 175.26 cm [facility] 06-08-2024 13:47-0400 Body temperature 98 [degF] [facility] 06-08-2024 13:47-0400 Body weight 133.8 kg [facility] 06-08-2024 13:47-0400 Diastolic blood pressure 73 mm[Hg] [facility] 06-08-2024 13:47-0400 Heart rate 93 /min [facility] 06-08-2024 13:47-0400 Respiratory rate 18 /min [facility] 06-08-2024 13:47-0400 SaO2% (BldA) [Mass fraction] 92 % [facility] 06-08-2024 13:47-0400 Systolic blood pressure 120 mm[Hg] [facility] 12-23-2023 13:53-0400 Body height 175.26 cm [facility] 12-23-2023 13:53-0400 Body mass index (BMI) [Ratio] 43.8 kg/m2 [facility] 12-23-2023 13:53-0400 Body temperature 96.9 [degF] [facility] 12-23-2023 13:53-0400 Body weight 134.71 kg [facility] 12-23-2023 13:53-0400 Diastolic blood pressure 60 mm[Hg] [facility] 12-23-2023 13:53-0400 Heart rate 91 /min [facility] 12-23-2023 13:53-0400 Respiratory rate 20 /min [facility] 12-23-2023 13:53-0400 SaO2% (BldA) [Mass fraction] 97 % [facility] 12-23-2023 13:53-0400 Systolic blood pressure 110 mm[Hg] [facility] 05-27-2023 13:00-0400 Body height 175.26 cm Dedra Mendoza Other [facility] [employer] Other 05-27-2023 13:00-0400 Body mass index (BMI) [Ratio] 41.93 kg/m2 Dedra [employer] Other [employer] Other 05-27-2023 13:00-0400 Body temperature 96.8 [degF] Dedra [employer] Other [employer] Other 05-27-2023 13:00-0400 Body weight 128.82 kg Dedra [employer] Other [employer] Other 05-27-2023 13:00-0400 Diastolic blood pressure 64 mm[Hg] Aziz Bakhous Other [employer] Other 05-27-2023 13:00-0400 Respiratory rate 20 /min Aziz Bakhous Other [employer] Other 05-27-2023 13:00-0400 SaO2% (BldA) [Mass fraction] 96 % Aziz Bakhous Other [employer] Other 05-27-2023 13:00-0400 Systolic blood pressure 111 mm[Hg] Aziz Bakhous Other [employer] Other 12-10-2022 15:00-0400 Body height 175.26 cm Aztram Robersons Other [employer] Other 12-10-2022 15:00-0400 Body mass index (BMI) [Ratio] 39.75 kg/m2 Aztram Kohous Other [employer] Other 12-10-2022 15:00-0400 Body temperature 96.7 [degF] Aztram Bakhous Other [employer] Other 12-10-2022 15:00-0400 Body weight 122.11 kg Aztram Bakhous Other [employer] Other 12-10-2022 15:00-0400 Diastolic blood pressure 70 mm[Hg] Aziz Bakhous Other [employer] Other 12-10-2022 15:00-0400 Respiratory rate 20 /min Aztram Bakhous Other [employer] Other 12-10-2022 15:00-0400 SaO2% (BldA) [Mass fraction] 95 % Aztram [employer] Other [employer] Other 12-10-2022 15:00-0400 Systolic blood pressure 110 mm[Hg] Aziz Bakhous Other [employer] Other 09-17-2022 11:00-0500 Body height 175.26 cm Aztram Bakhous Other [employer] Other 09-17-2022 11:00-0500 Body mass index (BMI) [Ratio] 39.54 kg/m2 Aztram Bakhous Other [employer] Other 09-17-2022 11:00-0500 Body temperature 96.2 [degF] Aztram [employer] Other [employer] Other 09-17-2022 11:00-0500 Body weight 121.47 kg Dedra [employer] Other [employer] Other 09-17-2022 11:00-0500 Diastolic blood pressure 60 mm[Hg] Aztram Bakhous Other [employer] Other 09-17-2022 11:00-0500 Respiratory rate 20 /min Aziz Bakhous Other [employer] Other 09-17-2022 11:00-0500 SaO2% (BldA) [Mass fraction] 97 % Aziz Bakhous Other [employer] Other 09-17-2022 11:00-0500 Systolic blood pressure 102 mm[Hg] Aziz Bakhous Other [facility] [employer] Other 06-27-2022 17:43-0400 Diastolic blood pressure 56 mm[Hg] MD Cullen Costa Work Phone: [facility] 06-27-2022 17:43-0400 Heart rate 78 /min MD Cullen Costa Work Phone: [facility] 06-27-2022 17:43-0400 Respiratory rate 20 /min MD Cullen Costa Work Phone: [facility] 06-27-2022 17:43-0400 SaO2% (BldA) [Mass fraction] 95 % MD Cullen Costa Work Phone: [facility] 06-27-2022 17:43-0400 Systolic blood pressure 109 mm[Hg] MD Cullen Costa Work Phone: [facility] 06-27-2022 14:32-0400 Body height 167.64 cm MD Cullen Costa Work Phone: [facility] 06-27-2022 14:32-0400 Body temperature 97.8 [degF] MD Cullen Costa Work Phone: [facility] 06-27-2022 14:32-0400 Body weight 117.02 kg MD Cullen Costa Work Phone: [facility] Encounters Encounter Date Encounter Type Care Provider Facility Start: 08-03-2024 End: 08-03-2024 ambulatory [facility] Start: 06-21-2024 End: 06-21-2024 ambulatory [facility] Start: 06-15-2024 End: 06-15-2024 ambulatory [facility] Start: 06-09-2024 End: 06-09-2024 ambulatory [facility] Start: 06-09-2024 End: 06-09-2024 ambulatory [facility] Start: 06-08-2024 End: 06-08-2024 ambulatory [facility] Work Phone: Start: 06-08-2024 End: 06-08-2024 Patient encounter procedure [facility] Physician [facility] Lukasz Work Phone: Start: 06-02-2024 Non-patient / Non-visit [facility]ician [facility] [employer] Work Phone: Start: 05-05-2024 End: 05-05-2024 ambulatory CY[facility]TH[facility] Start: 04-30-2024 Non-patient / Non-visit [facility] Physician [facility] Work Phone: Start: 01-27-2024 End: 01-27-2024 ambulatory [facility] Start: 12-23-2023 End: 12-23-2023 ambulatory [facility] Work Phone: Start: 12-23-2023 End: 12-23-2023 Patient encounter procedure [facility] Physician [facility] Lukasz Work Phone: Start: 12-17-2023 Non-patient / Non-visit [facility] Physician [facility] Work Phone: Start: 10-20-2023 End: 10-20-2023 ambulatory [facility] Start: 06-09-2023 End: 06-09-2023 ambulatory Cullen Costa Other [employer] Other Start: 06-09-2023 Telephone encounter Cullen Costa [facility] Start: 05-27-2023 End: 05-27-2023 ambulatory Dedra Mendoza Other [employer] Other Start: 05-27-2023 Office outpatient visit 25 minutes Aziz Bakhous [facility] Start: 05-20-2023 End: 05-20-2023 ambulatory Cullen Costa Other [employer] Other Start: 05-20-2023 Telephone encounter Cullen Costa [facility] Start: 12-10-2022 End: 12-10-2022 ambulatory Aztram Bakhous Other [employer] Other Start: 12-10-2022 Office outpatient visit 25 minutes Aziz Bakhous [facility] Start: 12-03-2022 End: 12-04-2022 ambulatory AZIZ BAKHOUS Facility:[facility] Start: 11-27-2022 End: 11-28-2022 ambulatory AZIZ BAKHOUS Facility:[facility] Start: 09-17-2022 End: 09-17-2022 ambulatory Aziz Bakhous Other [employer] Other Start: 09-17-2022 Office outpatient ne w 30 minutes Aziz Bakhous [facility] Start: 07-25-2022 End: 07-25-[address] MARK INIGUEZ Facility:[facility] Start: 07-10-2022 End: 07-11-[address] TIGIST IGLESIAS Facility:[facility] Start: 06-27-2022 End: 06-27-2022 Emergency department patient visit Cullen Costa Facility:[facility] Start: 06-27-2022 End: 06-27-2022 Emergency department patient visit MD Cullen Costa Work Phone: [facility] Start: 06-24-2022 End: 06-25-2022 ambulatory GAGE SIMPSON Facility:[facility]1 Start: 04-29-2022 ambulatory MIS Herring lity:[facility]1 Start: 04-26-2022 End: 05-03-2022 ambulatory CULLEN COSTA Facility:[facility] Start: 04-25-2022 End: 05-09-2022 Evaluation and management of inpatient TAYLOR HOWARD Facility:[facility] Start: 04-24-2022 End: 04-25-2022 ambulatory VIOLETA VILLAREAL Facility:[facility]1 Start: 04-22-2022 End: 04-22-2022 ambulatory CYNTHIA PALMA Facility:[facility] Start: 04-15-2022 End: 04-15-[address] LI CINTRON Facility:[facility]1 Start: 04-04-2022 End: 04-05-[address] [facility] Start: 04-02-2022 End: 04-02-[address] LI CINTRON Facility:[facility] Start: 04-01-2022 End: 04-01-[address] WALE Klein Facility:[facility]1 Start: 03-12-2022 End: 03-13-2022 ambulatory MIS Dye [facility] Facility:[facility]1 Start: 02-14-2022 End: 02-15-2022 ambulatory MIS Dye [facility] Facility:[facility]1 Start: 01-16-2022 End: 01-17-2022 ambulatory MIS Dye [facility] Facility:[facility]1 Start: 01-07-2022 End: 01-08-2022 ambulatory MIS Dye [facility] Facility:[facility]1 Start: 01-03-[address] LI CINTRON Fac ility:[facility]1 Start: 12-24-2021 End: 12-25-2021 ambulatory SHANNAN FITZPATRICK Facility:[facility]1 Start: 12-19-[address] ZE Montes y:[facility]1 Start: 12-13-2021 End: 12-17-2021 Evaluation and management of inpatient DR TIGIST IGLESIAS Facility:[facility]1 Start: 12-11-2021 End: 12-12-2021 ambulatory SHANNAN FITZPATRICK Facility:[facility]1 Start: 07-31-2021 End: 08-01-2021 Evaluation and management of inpatient REFERRED SELF Facility:[facility] Procedures Date Procedure Procedure Detail Performing Clinician Start: 08-03-2024 Follow-up visit Follow-up GAGE OCHOA Start: 06-27-2022 Plain chest X-ray MD Fito Costa Work Phone: Start: 12-14-2021 Insertion of Infusio n Device into Upper Vein, Percutaneous Approach DEDRA MENDOZA Start: 04-28-2014 General examination of patient Cullen Igor Other SARS Antigen (LFIA) MD Marly Costa Work Phone: Plan of Treatment Date Care Activity Detail Author Start: 06-27-2022 Duplex scan of lower limb veins US venous duplex [facility] Start: 06-27-2022 US Lower extremity v ein - bilateral [facility] Bacteria identified in Blood by Culture [facility] Patient Education Cellulitis (Sk in Infection), Adult (DC) [facility] Work Phone: Patient referral [facility] Work Phone: Renal function 1999 panel - Serum or Plasma [facility] Renal function 1999 panel - Serum or Plasma [facility] Payers Date Payer Category Payer Unknown [id number] 1957 Medicare [id number] 1959 Self-pay 1959 Unknown [id number] 1950 Unknown [id number] 2.16.8 40.1.960552.3.579.2.647 1952 Unknown [id number] 2.16.8 40.1.754150.3.579.2.647 1950 Unknown [id number] 2.16.8 40.1.208689.3.579.2.647 1950 Unknown [id number] 2.16.84 0.1.151566.3.579.2.593 1952 Unknown [id number] 2.16.84 0.1.652017.3.579.2.593 1952 Unknown [id number] 2.16.84 0.1.572429.3.579.2.593 1952 Unknown [id number] 2.16.84 0.1.487086.3.579.2.593 1952 Unknown [id number] 2.16.84 0.1.102219.3.579.2.593 1952 Unknown [id number] 2.16.84 0.1.847115.3.579.2.593 1952 Unknown [id number] 2.16.84 0.1.430003.3.579.2.593 1952 Unknown [id number] 2.16.84 0.1.904737.3.579.2.593 1952 Unknown [id number] 2.16.84 0.1.476768.3.579.2.593 1952 Unknown [id number] 2.16.84 0.1.075236.3.579.2.593 1952 Unknown [id number] 2.16.84 0.1.549798.3.579.2.593 1952 Unknown [id number] 2.16.84 0.1.942913.3.579.2.593 1952 Unknown [id number] 2.16.84 0.1.346407.3.579.2.593 1952 Unknown [id number] 2.16.84 0.1.801112.3.579.2.593 1952 Unknown [id number] 2.16.84 0.1.343325.3.579.2.593 1952 Unknown [id number] 2.16.84 0.1.879069.3.579.2.593 1952 Unknown [id number] 2.16.84 0.1.415169.3.579.2.593 1952 Unknown [id number] 2.16.84 0.1.123718.3.579.2.593 1952 Unknown [id number] 2.16.84 0.1.281888.3.579.2.593 1952 Unknown [id number] 2.16.84 0.1.695207.3.579.2.593 1952 Unknown [id number] 2.16.84 0.1.522713.3.579.2.593 1952 Unknown [id number] 2.16.84 0.1.747935.3.579.2.593 Unknown [id number] 2.16.8 40.1.972295.3.579.2.[address] [facility] [id number] Social History Date Type Detail Facility Start: 06-27-2022 End: 12-23-2023 Tobacco smoking status NHIS Never smoked tobacco (finding) [facility] Start: 1950 Sex Assigned At Male F [facility] Sex Assigned At Sex Assigned At Bir th Rangely [employer] Other Clinical Notes 08-02-2021 to 08-03-2024 Note Date & Type Note Facility 08-03-2024 Note HI Electrophysiology Consult Note [facility] Cardiology - [facility] Reason for visit: CMP HPI: Man Patel is a 74 y.o. year old with past medical history of CAD s/p CABG, cardiac cath in 2015 with no targets for revacularization, htn, morbid obesity, chronic systolic HF and grade 2 diastolic dysfunction with reduced EF of 40% as of 04/26/2022. Patient underwent a dual-chamber pacemaker implant on 07/31/[address] Franks for what appeared to be complete heart block. He is also known to have atrial fibrillation and has been on Eliquis and subsequently has undergone a right heart catheterization on 04/25/2022 which showed a wedge pressure of 30 mm and evidence of a right atrial pressure of 16 thus revealing the presence of moderate pulmonary hypertension secondary from heart failure although the cardiac output and cardiac index were preserved. Subsequently echocardiogram on 04/26/2022 showed EF of 40% and then a repeat echo done on 05/03/2024 showed EF of 20 to 25% in accordance to evaluate the cardiomyopathy stress test was performed on 05/19/2024 which showed fixed defect in the apex and along the septum with no evidence of reversible ischemia at this stage the patient was referred to me for further upgrade of the device. Patient is restricted in his ability to do things at home and I would say he is NYHA class III at best. He is 100% RV paced due to the complete heart block Review of Systems Constitutional: Negative for malaise/fatigue. Cardiovascular: Negative for chest pain, dyspnea on exertion (limited in activity, limited assessment), leg swelling, near-syncope, orthopnea and palpitations. Respiratory: Negative for shortness of breath and sleep disturbances due to breathing. Neurological: Negative for dizziness, headaches and light-headedness. All other systems reviewed and are negative. PMH: Past Medical History: Diagnosis Date Atrial fibrillation (CMS/HCC) CHF (congestive heart failure) (CMS/HCC) Chronic kidney disease Coronary artery disease Hyperlipidemia Hypertension PSH: Past Surgical History: Procedure Laterality Date CARDIAC CATHETERIZATION CARDIOVERSION CORONARY ARTERY BYPASS GRAFT INSERT / REPLACE / REMOVE PACEMAKER SH: Social Determinants of Health Tobacco Use: Low Risk (08/03/2024) Patient History Smoking Tobacco Use: Never Smokeless Tobacco Use: Never Passive Exposure: Not on file Alcohol Use: Not on file Financial Resource Strain: Not on file Food Insecurity: Not on file Transportation Needs: Not on file Physical Activity: Not on file Stress: Not on file Social Connections: Not on file Intimate Partner Violence: Unknown (10/30/2023) [place] Safety & Environment Fear of Current or Ex-Partner: Not on file Emotionally Abused: Not on file Physically Abused: Not on file Sexually Abused: Not on file Physically or Sexually Abused: Not on file Depression: Not on file Housing Stability: Not on file Utilities: Not on file Health Literacy: Not on file Allergies: No Known Allergies Weight: 129kg Meds: Current Outpatient Medications on File Prior to Visit Medication Sig Dispense Refill allopurinol (Zyloprim) 100 mg tablet Take 100 mg by mouth in the morning. amiodarone (Pacerone) 200 mg tablet TAKE 1 TABLET BY MOUTH EVERY DAY 90 tablet 3 apixaban (Eliquis) 5 mg tablet Take 1 tablet (5 mg) by mouth two times daily. 14 tablet 3 aspirin 81 mg EC tablet Take 81 mg by mouth in the morning. atorvastatin (Lipitor) 80 mg tablet TAKE 1 TABLET BY MOUTH EVERY DAY 90 tablet 3 bumetanide (Bumex) 1 mg tablet TAKE 3 TABLETS BY MOUTH TWICE A DAY (Patient taking differently: Take 3 mg by mouth two times daily.) 540 tablet 3 hydrALAZINE (Apresoline) 25 mg tablet TAKE 1 TABLET BY MOUTH IN THE MORNING AND AT BEDTIME 180 tablet 3 isosorbide dinitrate (Isordil) 10 mg tablet Take 10 mg by mouth in the morning, at noon, and at bedtime. Klor-Con M20 20 mEq ER tablet Take 20 mEq by mouth in the morning. metoprolol succinate XL (Toprol-XL) 25 mg 24 hr tablet Take 12.5 mg by mouth in the morning. Do not crush or chew. spironolactone (Aldactone) 25 mg tablet TAKE 1 TABLET BY MOUTH EVERY DAY 90 tablet 3 Vitamin D3 50 mcg (2,000 unit) tablet TAKE 1 TABLET BY MOUTH EVERY DAY FOR 90 DAYS No current facility-administered medications on file prior to visit. Physical Exam: Constitutional General Appearance: well-nourished, well-developed, appears stated age Level of Distress: comfortable Psychiatric Mental Status: alert, normal affect Orientation: oriented to time, place, and person Insight: good judgement Eyes Lids and Conjunctivae: non-injected, no xanthelasma ENMT Ears: no lesions on external ear Nose: no lesions on external nose Oropharynx: no cyanosis, no pallor Neck Neck: supple, trachea midline Carotid Arteries: bilateral normal upstroke, no bruits Jugular Veins: normal jugular venous pressure (more content not included)... [facility] 06-21-2024 Note [place] Cardiology - [facility] Subjective Man Patel is a 74 y.o. year old male patient being seen for follow up aborted cardioversion. He had BNP and CXR last week and Dr. Walton increased Bumex to 3mg tid. states his LE aren't as swollen or red as they were before. Patient states he hasn't noticed a difference in SOB or weight loss since increase in Bumex. Denies chest pain, palpitations, and bleeding on Eliquis. Family History Problem Relation Name Age of [...] 97% with episodes of AT/A-fib 45% burden. I saw him on 06/09/2024 and he was having significant shortness of breath. He was not persistent atrial flutter according to device interrogation. I scheduled him for cardioversion of atrial flutter. He was hesitant on the day of the procedure to go ahead and have the cardioversion done. This was aborted. A BNP was elevated. His Bumex was increased by Dr. Zohra Walton. he has been taking the increased Bumex for the past 2 days. He has not seen significant difference in symptoms or weight. Currently he reports that he has no [...] and are negative. Objective Visit Vitals BP 118/78 (BP Location: Right wrist, Patient Position: Sitting) Pulse 87 Ht 1.702 m (5' 7 ) SpO2 98% BMI 44.64 kg/m??? Smoking Status Never BSA [...] No Known Allergies Medications Current Outpatient Medications: apixaban (Eliquis) 5 mg tablet, Take 1 tablet (5 mg) by mouth two times daily., Disp: 14 tablet, Rfl: 3 Recent Labs Admission on 06/15/2024 Component Date Value Ventricular Rate 06/15/2024 84 Atrial Rate 06/15/2024 84 SC Interval 06/15/2024 228 QRS DURATION 06/15/2024 178 QT Interval 06/15/2024 440 QTC CALCULATION(BAZETT) 06/15/2024 519 P [place] 06/15/2024 96 R-[place] 06/15/2024 -20 T Wave [place] 06/15/2024 130 NT proBNP 06/18/2024: 1911. Blood testing 06/02/2024: Hemoglobin 15.3, platelets 182, BUN 57, creatini (more content not included)... [facility] 06-09-2024 Note [place] Cardiology - [facility] Subjective Man Patel is [...] arterial coronary artery bypass graft Morbid obesity (CMS/[facility]) Bundle branch block Edema of lower extremity Generalized ischemic myocardial dysfunction Pain in lower limb Cellulitis Hyperparathyroidism ([facility]) Hypertensive nephropathy Hyperuricemia Kidney disease, chronic, stage IV (GFR 15-29 ml/min) ([facility]) Presence of permanent cardiac pacemaker Renal cyst, [...] MORNING AND AT (more content not included)... [facility] 05-05-2024 Note Cardiovascular Medic ine [facility] [facility] SUBJECTIVE Chief Complaint Patient presents with [...] soft. Musculoskeletal: G (more content not included)... [facility] 05-05-2024 Note Pt is here for a fol low up with echo and labs. Pt denies palpatations, chest pain, dizzines. Review of Systems Cardiovascular: Positive for leg swelling. Hematologic/Lymphatic: Bruises/bleeds easily. All other systems reviewed and are negative. [facility] 01-27-2024 Note This report has been cancelled. [facility] 10-20-2023 Note [place] Cardiology - [facility] Subjective Man Patel is [...] or chew., Disp: (more content not included)... [facility] 05-27-2023 Evaluation note Encounter Date Diagnosis Assessment [...] I50.20) Patient follows with cardiology clinic in [facility] every 3 months. Has had seems compensating. [...] 2.4 cm in the right 4.2 cm [facility] Other 04-04-2023 Evaluation note* Encounter Date Diagnosis [...] I50.20) Patient follows with cardiology clinic in [facility] every 3 months. Has had seems compensating. [...] D is low. As the patient take ncov-osr-hytzkig vitamin D supplement 2000 unit daily Dec, [...] 2.4 cm in the right 4.2 cm [facility] Other 01-10-2023 Evaluation note* Encounter Date Diagnosis [...] I50.20) Patient follows with cardiology clinic in [facility] every 3 months. Has had seems compensating. Patient on spironolactone and Bumex. Patient follows low-salt diet hours himself every day. Sep, Presence of permanent cardiac pacemaker (ICD-10 - Z95.0) Patient has history of complete heart block status post permanent pacemaker with defibrillator placement in 2020. And Eliquis and amiodarone in addition to metoprolol. Follows with cardiology clinic [facility] Other 08-30-2022 NoteMR#: [id number] [facility] Pt. Name: Man Patel Admitted: 04/25/2022 Discharged: [...] x2 on 04/29 and 05/03, insertion of Parnell-Eleazar catheter and removal, and echocardiogram. CONSULTATIONS: Included Cardiology, Nephrology, vascular service and medical ICU. HOSPITAL COURSE: This patient is a 72-year-old male, who presents to the [facility] as a transfer from [facility] with complaints of worsening shortness of breath and weeping edema. The patient was accepted for transfer by the [facility] for failed outpatient treatment of [...] at this time for discharging to a custodial facility with close followup with Cardiology and [...] The patient is being discharged to a custodial facility. Please note that an addendum may be added to this discharge dictation as the patient's discharge is currently pending placement at this time. MEDICATIONS: As per medication reconciliation and as per above. DISCHARGE INSTRUCTIONS: Activity as tolerated with PT and OT at facility. Heart healthy, low-cholesterol diet with (more content not included)...[facility]11-25-2021 NoteMR#: [id number] [facility] Pt. Name: Man Patel Admitted: 07/31/2021 Discharged: [...] reduced ejection fraction, who initially presented to [facility] for bradycardia. He was having syncopal episodes, where he was found to have heart rate in the 30s. Atropine was given at [place] without any help. His blood pressure was stable at that time and was transferred to [facility]. On arrival, his EKG revealed complete [...] and followup as an outpatient close to [place] where the patient is from and interested [...] physician, Dr. Costa, in 1 week at [facility]. 2. Follow up with [facility] Heart on 08/10/2021 for wound/pacemaker check at 11:20 a.m. 3. Follow up with [facility] Cardiovascular on 09/04/2021 at 2:[address] [place] [address] Cintron. 4. Follow up with Nephrology around [place]. TIME SPENT: Time spent for the discharge [...] Johnson CNP Date Trans: 08/02/2021 05:18 P/surekha [id number] [facility] noteNo assessment information availableP[facility] Work Phone: Evaluation noteNo InformationNort [employer] Other Evaluation note* Diagnosis Onset Date Resolution Status Hyperparathyroidism acute Hypertensive nephropathy acu te Hyperuricemia acute Kidney disease, chronic, stage IV (GFR 15-29 ml/min) acute Presence of permanent cardiac pacemaker acute Renal cyst, acquired acute Systolic congestive heart failure acute Vitamin D deficiency acute [facility] Work Phone: Hisrsqr general Narrative - Reported* Type Description Date Medical History varicose veins Medical History Hypertension Medical History obesity Medical History thrombophlebitis Medical History possible DVT Medical History CAD Medical History ACUTE HYPOXIC RESPIRATORY FAILUR E Surgical History triple bypass 03/2000 Hospitalization History bypass Hospitalization History EDEMIA 06/29 Hospitalization History EDEMIA 04/2022 [facility] Other Hisovdh general Narrative - Reported* Type Description Date Medical History varicose veins Medical History Hypertension Medical History obesity Medical History thrombophlebitis Medical History possible DVT Medical History CAD Medical History ACUTE HYPOXIC RESPIRATORY FAILUR E Surgical History triple bypass 03/2000 Hospitalization History bypass Hospitalization History EDEMA 06/29 Hospitalization History EDEMA 04/2022 [facility] Other Hospital Discharge instructions Additional Instructions Take antibiotics as instructed until gone Elevate lower extremities You have blood cultures pending Follow-up with home care your primary care doctor call tomorrow for appointment Return here if any problems persist or worsen including fever, chills, increased redness, increased swelling or any other [facility]Fire[facility] Work Phone: Summary Purpose Family History [...] and content) DATE CREATED AUTHOR 05/15/2022 [facility] DATE CREATED AUTHOR AUTHOR'S ORGANIZ ATION 07/05/2022 [facility] DATE CREATED AUTHOR AUTHOR'S ORGANIZ ATION 12/11/2022 [facility] DATE CREATED AUTHOR AUTHOR'S ORGANIZ ATION 09/20/2024 [facility] Care Teams (unrecognized sec tion and [...] BE BASED ON THE PRIMARY CLINICAL RECORDS. [employer] provides no warranty or guarantee of the accuracy or completeness of information in this document.
[2024-10-08 09:55] LABS: Hemoglobin 13.8 g/dL (14.0-18.0); Mean Corpuscular HGB Conc 32.1 g/dL (29.9-35.2); Mean Corpuscular Hemoglobin 29.5 pg (25.9-34.0); Mean Corpuscular Volume 91.9 fL (80.0-94.0); Mean Platelet Volume 9.8 fL (9.5-13.5); Platelet Count 202 10^3/uL (150-450); Red Blood Count 4.68 10^6/uL (4.70-6.10); Red Cell Distribution Width 15.7 % (11.0-15.0); White Blood Count 7.2 10^3/uL (4.0-11.0)
[2024-10-08 09:58] LABS: Creatinine Urine Random 107.67 mg/dL (20.00-300.00); Protein Creatinine Ratio Urine 0.18; Total Protein Urine Random 19.9 mg/dL (<=11.9)
[2024-10-08 10:34] LABS: Albumin Level 3.8 g/dL (3.4-5.0); Anion Gap 11.6; BUN Creatinine Ratio 21.4; Calcium 9.4 mg/dL (8.5-10.1); Carbon Dioxide 30.8 mmol/L (21.0-32.0); Chloride 100 mmol/L (98-107); Estimated GFR (African America 26 (>=60 mL/min/1.73m^2); Estimated GFR (Non-African Ame 21 (>=60 mL/min/1.73m^2); Glucose 131 mg/dL (74-106); Magnesium 2.4 mg/dL (1.8-2.4); Phosphorus 3.6 mg/dL (2.6-4.7); Potassium 4.4 mmol/L (3.5-5.1); Sodium 138 mmol/L (136-145); Uric Acid 8.4 mg/dL (3.5-7.2)
[2024-10-10 11:06] LABS: PTH, Intact 85 pg/mL (15-65)
== END 2024-10-08 09:28 | disposition home or self-care (01) ==
LOC: LAB 09:28
PROVIDERS: PCP Family Medicine; Visit Provider Internal Medicine Nephrology
DX: N28.1 Cyst of kidney, acquired (principal); E79.0 Hyperuricemia without signs of inflammatory arthritis and tophaceous disease; E21.3 Hyperparathyroidism, unspecified; E55.9 Vitamin D deficiency, unspecified; Z95.0 Presence of cardiac pacemaker; I50.20 Unspecified systolic (congestive) heart failure
CPT/HCPCS: 36415; 80069; 82306; 82570; 83735; 83970; 84156; 84550; 85027

== ENCOUNTER 2025-01-03 12:14 | Outpatient (OUT) | payer MEDICARE, OTHER, SELFPAY ==
[2025-01-03 12:37] LABS: Hematocrit 41.4 % (42.0-54.0); Hemoglobin 13.5 g/dL (14.0-18.0); Mean Corpuscular HGB Conc 32.6 g/dL (29.9-35.2); Mean Corpuscular Hemoglobin 29.3 pg (25.9-34.0); Mean Corpuscular Volume 89.8 fL (80.0-94.0); Mean Platelet Volume 9.8 fL (9.5-13.5); Platelet Count 196 10^3/uL (150-450); Red Blood Count 4.61 10^6/uL (4.70-6.10); Red Cell Distribution Width 15.9 % (11.0-15.0); White Blood Count 9.2 10^3/uL (4.0-11.0)
[2025-01-03 12:42] LABS: Anion Gap 13.5; BUN Creatinine Ratio 18.4; Calcium 9.1 mg/dL (8.5-10.1); Chloride 100 mmol/L (98-107); Estimated GFR (African America 25 (>=60 mL/min/1.73m^2); Estimated GFR (Non-African Ame 20 (>=60 mL/min/1.73m^2); Glucose 115 mg/dL (74-106); Potassium 4.5 mmol/L (3.5-5.1); Sodium 138 mmol/L (136-145)
[2025-01-03 15:21] LABS: Basophils Abs Manual 0.09 10^3/uL (0.00-0.10); Eosinophils Absolute Manual 0.36 10^3/uL (0.00-0.70); Lymphocytes Absolute Manual 0.36 10^3/uL (1.20-3.80); Monocytes Absolute Manual 0.64 10^3/uL (0.30-0.80); Segmented Neut Absolute Manual 7.72 10^3/uL (1.4-6.5)
== END 2025-01-03 12:15 | disposition home or self-care (01) ==
LOC: LAB 12:16
PROVIDERS: PCP Family Medicine; Visit Provider Internal Medicine Interventional Cardiology
DX: I50.22 Chronic systolic (congestive) heart failure (principal)
CPT/HCPCS: 36415; 80048; 85007; 85027

== ENCOUNTER 2025-01-24 13:49 | Outpatient (OUT) | payer MEDICARE, OTHER, SELFPAY ==
--- NOTE | 2025-01-24 13:58 | CA_ITS ---
Patient Name: MAN ALEGRIA MR#: [id number] : 1950 Exam Date: 01/24/2025 Ordering Doctor: DR LI CINTRON M.D. ECHOCARDIOGRAM REPORT PROCEDURE: CA ECHO DOPPLER COMPLETE INDICATIONS: Chronic systokic heart failure, Atypical A-flutter COMPARISON: None. DESCRIPTION: COMPLETE ECHOCARDIOGRAM Real-time transthoracic echocardiography with 2D, M-mode, spectral and color flow Doppler performed. QUALITY: Technical quality was limited because of body habitus. LEFT VENTRICLE: Mild dilatation. Normal left ventricular wall thickness. Severely reduced systolic function. LV EF: Visual estimation of left ventricular ejection fraction is severely decreased at 25%. DIASTOLIC: Not adequately assessed due to heart rhythm. ATRIAL SEPTUM: LEFT ATRIUM: Severe dilatation. RIGHT ATRIUM: Moderate dilatation. RIGHT VENTRICLE: Mild dilatation. Mildly reduced right ventricular systolic function. TRICUSPID VALVE: Normal mobility and thickness. No stenosis with trivial regurgitation. No evidence of pulmonary hypertension. RVSP 19 mmHg MITRAL VALVE: Normal mobility and thickness. No evidence of mitral valve stenosis. There is no mitral annular calcification. Mild mitral regurgitation. AORTIC VALVE: Normal trileaflet appearance. No visible sclerosis. Normal leaflet mobility. No evidence of aortic valve stenosis. No aortic regurgitation. AORTIC ROOT: Mildly dilated, measuring 4.0 cm. PULMONIC VALVE: Normal thickness and mobility. No stenosis. Trivial regurgitation. PERICARDIUM: No evidence of pericardial effusion. IVC: Collapses with inspirations. Normal size. PLEURA: CONCLUSION: 1. Mildly dilated left ventricle with severely reduced systolic function. LVEF is estimated at 25%. 2. Mildly dilated right ventricle with mildly reduced systolic function. 3. Mild mitral regurgitation. 4. Normal right-sided pressures. 5. Mildly dilated aortic root measuring 4.0 cm. Adult Echocardiography Procedure Report Left Ventricle LVEDD (3.7 - 5.6 cm): 5.94 cm LVESD (2.2 - 4.0 cm): 5.20 cm LVIVS thickness (0.6 - 1.2 cm): 0.69 cm LVPW thickness (0.5 - 1.0 cm): 0.76 cm LVOT Max Gradient: 2.18 mm[Hg] LVOT Area (cm2): 0.74 m/s Peak Velocity (LVOT): 0.74 m/s LVOT Diameter 2.03 cm Left Atrium LA Volume Index (2D A2C): 62.61 ml/m2 Left Atrium Systolic Dimension: 5.48 cm Mitral Valve MV E to A Ratio: 88.17 Mitral Valve A-Wave Peak Velocity: 0.01 m/s Mitral Valve E-Wave Peak Velocity: 0.80 m/s Right Ventricle RV Internal Diastolic Dimension: 4.15 cm Aorta AO Root Diam: 3.99 cm Ascending Ao Diam: 3.21 cm Aortic Valve AoV Area (Peak Anders): 2.57 cm2, 2.57 cm2 Peak Velocity(Antegrade Flow): 0.93 m/s Peak Gradient(Antegrade Flow): 3.44 mm[Hg] Tricuspid Valve Peak Velocity (Regurgitant Flow): 1.98 m/s Pulmonic Valve Peak Velocity: 1.02 m/s Peak Gradient: 4.20 mm[Hg] Right Atrium Right Atrium Systolic Pressure: 73.27 ml, 73.27 ml Dictated by: Li Cintron M.D. on 01/24/2025 at 18:36 Approved by: Li Cintron M.D. on 01/24/2025 at 18:41
== END 2025-01-24 13:50 | disposition home or self-care (01) ==
LOC: CARD 13:49
PROVIDERS: PCP Family Medicine; Visit Provider Internal Medicine Interventional Cardiology
DX: I50.22 Chronic systolic (congestive) heart failure (principal); I48.4 Atypical atrial flutter
CPT/HCPCS: 93306

== ENCOUNTER 2025-02-09 09:24 | Outpatient (OUT) | payer MEDICARE, OTHER, SELFPAY ==
[2025-02-09 09:57] LABS: Hematocrit 44.8 % (42.0-54.0); Hemoglobin 14.5 g/dL (14.0-18.0); Mean Corpuscular HGB Conc 32.4 g/dL (29.9-35.2); Mean Corpuscular Hemoglobin 28.6 pg (25.9-34.0); Mean Corpuscular Volume 88.4 fL (80.0-94.0); Mean Platelet Volume 10.1 fL (9.5-13.5); Platelet Count 169 10^3/uL (150-450); Red Blood Count 5.07 10^6/uL (4.70-6.10); Red Cell Distribution Width 15.9 % (11.0-15.0); White Blood Count 8.5 10^3/uL (4.0-11.0)
[2025-02-09 10:29] LABS: Protein Creatinine Ratio Urine 0.17; Total Protein Urine Random 21.4 mg/dL (<=11.9)
[2025-02-09 10:34] LABS: Albumin Level 3.7 g/dL (3.4-5.0); BUN Creatinine Ratio 22.9; Calcium 9.5 mg/dL (8.5-10.1); Carbon Dioxide 27.7 mmol/L (21.0-32.0); Chloride 98 mmol/L (98-107); Estimated GFR (African America 28 (>=60 mL/min/1.73m^2); Estimated GFR (Non-African Ame 23 (>=60 mL/min/1.73m^2); Glucose 143 mg/dL (74-106); Magnesium 2.7 mg/dL (1.8-2.4); Potassium 4.7 mmol/L (3.5-5.1); Sodium 136 mmol/L (136-145); Uric Acid 7.6 mg/dL (3.5-7.2)
[2025-02-09 11:06] LABS: Percent Iron Saturation 22.4 %
[2025-02-10 05:08] LABS: Vitamin B12 520 pg/mL (232-1245)
[2025-02-10 12:09] LABS: PTH, Intact 106 pg/mL (15-65)
== END 2025-02-09 09:25 | disposition home or self-care (01) ==
LOC: LAB 09:29
PROVIDERS: PCP Family Medicine; Visit Provider Internal Medicine Nephrology
DX: N18.9 Chronic kidney disease, unspecified (principal); D63.1 Anemia in chronic kidney disease; N28.1 Cyst of kidney, acquired; E79.0 Hyperuricemia without signs of inflammatory arthritis and tophaceous disease; E21.3 Hyperparathyroidism, unspecified; E55.9 Vitamin D deficiency, unspecified
CPT/HCPCS: 36415; 80069; 82306; 82570; 82607; 82728; 82746; 83540; 83550; 83735; 83970; 84156; 84550; 85027

== ENCOUNTER 2025-06-16 10:28 | Outpatient (OUT) | payer MEDICARE, OTHER, SELFPAY ==
--- OUTSIDE RECORDS SUMMARY | 2025-06-16 10:49 | XMS_ITS | CCD ---
Author Organization [facility] Care Team Providers Care Telepathist Name Role Phone ZULMAANNELIESED Admitting Unavailable CULLEN COSTA Primary Care Unavailable LI CINTRON V Referring Unavailable DILLAN HARDY Attending Unavailable CULLEN COSTA Primary Care Unavailable CULLEN COSTA Referring Unavailable LI CINTRON V Admitting Unavailable LI CINTRON V Attending Unavailable SELF, REFERRED Primary Care Unavailable SELF, REFERRED Referring Unavailable FLOR BIGGS Admitting Unavailable CYRUS ASHLEY Attending Unavailable MD Cullen Costa Primary Care Provider [phone] DO Balwinder Chavarria Emergency Provider Cullen Theodore Primary Care Unavailable Balwinder Chavarria Attending Unavailable Balwinder Chavarria Admitting Unavailable Dedra Mendoza Unavailable DEDRA MENDOZA Attending Unavailable DEDRA MENDOZA Admitting Unavailable IGOR, DR CULLEN Felton Primary Care Unavailable MELBOURNE, DR ZE Moraes Consulting Unavailable DEDRA MENDOZA Consulting Unavailable RIAZ, DR JEFFERSON Attending Unavailable RIAZ, DR JEFFERSON Admitting Unavailable IGOR, DR CULLEN Felton Primary Care Unavailable CYNTHIA PALMA Attending Unavailable CYNTHIA PALMA Admitting Unavailable IGOR, DR CULLEN Felton Primary Care Unavailable CYNTHIA PALMA Consulting Unavailable HOLLAND SIMPSON Attending Unavailable HOLLAND SIMPSON Admitting Unavailable IGOR, DR CULLEN Felton Primary Care Unavailable HOLLAND SIMPSON Consulting Unavailable LANA, DR CASAS Attending Unavailable LANA, DR CASAS Admitting Unavailable IGOR, DR CULLEN Felton Primary Care Unavailable LANA, DR CASAS Consulting Unavailable HARRIS, DR TIGIST Pendleton Attending Unavailable HARRIS, DR TIGIST Pendleton Admitting Unavailable DR DONNELL PERES Procedure Practitioner Unavail able DR CULLEN COSTA Primary Care Unavailable DR DONNELL PERES Consulting Unavailable WEST, DR ZE Moraes Consulting Unavailable ZIEBER, DR CARSON Ace Consulting Unavailable NADERER, DR TIGIST Pendleton Consulting Unavailable ANTWON ., DR CHI Consulting Unavailable RAFAELSUNSHINE HAYS Consulting Unavailable REINECK, DR DELBERT Brown Attending Unavailabl e REINECK, DR DELBERT Brown Admitting Unavailabl e REINECK, DR DELBERT Brown Consulting Unavailabl e COSTA, DR CULLEN Felton Primary Care Unavailable BUTCH ., EDWARD Consulting Unavailable ZE GOMEZ Consulting Unavailable HIGHLANDER, MIS Dye Admitting Unavailable [...] SHANNAN Kaur Attending Unavailabl e CLOUGHERTY, SHANNAN O Admitting Unavailabl e COSTA, DR CULLEN Felton [...] MOUKARBEL, DR JEFFERSON Admitting Unavailable MOUKARBEL, DR LI Lainez Unavailable COSTA, DR CULLEN Felton Primary Care Unavailable MOUKARBEL, DR JEFFERSON Admitting Unavailable MOUKARBEL, DR JEFFERSON Attending Unavailable PAY ., DR ECHEVARIRA Admitting Unavailable ZIEBER, DR CARSON Ace Consulting Unavailable COSTA, DR CULLEN Felton Primary Care Unavailable PAY ., DR ECHEVARRIA Attending Unavailable BUTCH ., EDWARD Consulting Unavailable NEFLA, MIS Consulting Unavailable NADERER, DR TIGIST Pendleton Attending Unavailable NADEREDb, DR TIGIST Pendleton Admitting Unavailable COSTA, DR CULLEN Felton Primary Care Unavailable NADERER, DR TIGIST Pendleton Consulting Unavailable ANTWON ., DR CHI Consulting Unavailable NEFCY, MIS Consulting Unavailable TIFFANIE SALGADO Consulting Unavailable SATURNINO, DR ZE Moraes Attending Unavailable SATURNINO, DR ZE Moraes Admitting Unavailable [facility], DR MEDEIROS Primary Care Unavailable EMETERIO, MIS Dye Attending Unavailable MIS STORM Admitting Unavailable IGOR, DR CULLEN Felton Primary Care Unavailable DEDRA MENDOZA Attending Unavailable DEDRA MENDOZA Admitting Unavailable DEDRA MENDOZA Consulting Unavailable IGOR, DR CULLEN Felton Primary Care Unavailable Cullen Costa Unavailable LI CINTRON Referring Unavailable MOUKARBEL, LI Attending Unavailable TATIANA, HOLLAND Referring Unavailable TATIANA, HOLLAND Referring Unavailable TATIANA, HOLLAND Referring Unavailable TATIANA, HOLLAND Referring Unavailable TATIANA, HOLLAND Referring Unavailable MOUKARBEL, LI Attending Unavailable CYNTHIA PALMA Attending Unavailable MOUKARBEL, LI Admitting Unavailable MOUKARBEL, LI Attending Unavailable MOUKARBEL, LI Attending Unavailable TATIANA, HOLLAND Referring Unavailable TATIANA, HOLLAND Attending Unavailable Cullen Costa MD Primary Care Provider [phone] Dedra Mendoza MD Attending Provider [phone] Cullen Costa MD Attending Provider [phone] Allergies Allergy Classification Reported Allergen(s) Allergy Type Date of Onset Reaction(s) Facility (3 sources) patient allergy list reviewed by nurse or physicia Propensity to adverse reactions Comment:[facility] Other (3 sources) Allergies Reconciled Propensity to adverse reactions [facility] Other Medications Current Medications Medication Drug Class(es) Dates Sig (Normalized) Sig (Original) apixaban 5 mg oral tablet (14 sources) Factor Xa Inhibitor Start: 06-27-2022 End: 10-12-2024 take 1 tablet by mouth twice daily Apixaban (Eliquis) 5 mg tablet Active 5 MG PO Twice daily October 12, 2024 4:21pm Complies with drug therapy Aspir-81 81 MG (5 sources) take 1 tablet by mouth once daily Aspir-81 81 MG 1 tablet Orally Once a day Active aspirin 81 mg delayed release oral tablet (5 sources) Platelet Aggregation Inhibitor, Nonsteroidal Anti-inflammatory Drug Start: 12-23-2023 take 1 tablet by mouth once daily Aspirin 81 mg tablet,delayed release (DR/EC) Active 81 MG PO Daily December 23, 2023 12:00am Complies with drug therapy atorvastatin 80 mg oral tablet (11 sources) HMG-CoA Reductase Inhibitor Start: 06-27-2022 take 1 tablet by mouth once daily at bedtime Atorvastatin 80 mg Tablet Active 80 MG PO Daily at bedtime June 27, 2022 12:00am Complies with drug therapy bumetanide 1 mg oral tablet (16 sources) Loop Diuretic Start: 12-23-2023 take 1 tablet by mouth twice daily Bumetanide 1 mg tablet Active 3 MG PO Twice daily December 23, 2023 12:00am Complies with drug therapy Start: 12-23-2023 take 3 mg by mouth twice daily Bumetanide Active 3 MG PO Twice daily December 23, 2023 12:00am Start: 06-27-2022 End: 12-23-2023 take 1 tablet by mouth twice daily Bumetanide (Bumex) 2 mg Tablet Discontinued 3 MG PO Twice daily June 27, 2022 12:00am December 23, 2023 1:58pm take 3 tablets by [facility] every twelve hours Bumetanide 1 MG 3 tablet Orally TWICE A DAY Active cholecalciferol 0.05 mg oral tablet (20 sources) Vitamin D Start: 09-07-2024 End: 10-12-2024 take 1 tablet by mouth once daily Cholecalciferol (Vitamin D3) (Vitamin D3) 50 mcg (2,000 unit) tablet Active 0 .ROUTE .COMPLEX October 12, 2024 4:33pm TAKE 1 TABLET BY MOUTH DAILY Complies with drug therapy Start: 08-10-2024 End: 09-07-2024 take 1 capsule by mouth once daily Cholecalciferol (Vitamin D3) 50 mcg (2,000 unit) capsule Discontinued 0 .ROUTE .COMPLEX August 10, 2024 9:07pm September 07, 2024 7:04pm TAKE 1 CAPSULE BY MOUTH DAILY Start: 12-23-2023 End: 08-10-2024 take 1 tablet by mouth once daily Cholecalciferol (Vitamin D3) 50 mcg (2,000 unit) tablet Discontinued 50 MCG PO Daily June 08, 2024 2:05pm August 10, 2024 9:07pm Start: 12-10-2022 take 1 capsule by mo [facility] once daily Cholecalciferol 25 MCG (1000 UT) 1 capsule Orally Once a day for 90 days Dec, Active take 1 capsule by mo ut once daily Cholecalciferol 25 MCG (1000 UT) 1 capsule Orally Once a day for 90 days Active hydrALAZINE hydrochloride 25 mg oral tablet (16 sources) Arteriolar Vasodilator Start: 12-23-2023 take 1 tablet by mouth twice daily Hydralazine 25 mg tablet Active 25 MG PO Twice daily December 23, 2023 12:00am Complies with drug therapy Start: 06-27-2022 End: 12-23-2023 take 1 tablet by mouth three times daily Hydralazine 10 mg Tablet Discontinued 10 MG PO Three times daily June 27, 2022 12:00am December 23, 2023 1:59pm take 1 tablet by humaira th every twelve hours hydrALAZINE HCl 10 MG 1 tablet with food Orally Twice a day Active 24 hr metoprolol succinate 25 mg extended release oral tablet (20 sources) beta-Adrenergic Demarco Start: 10-28-2024 take 0.5 tablet by mouth once daily Metoprolol Succinate 25 mg tablet extended release 24 hr Active 0 .ROUTE .COMPLEX October 28, 2024 12:31pm TAKE 1/2 TABLET BY MOUTH ONCE EVERYDAY Complies with drug therapy Start: 12-23-2023 End: 10-28-2024 take 2 tablets by mouth once daily Metoprolol Succinate 25 mg tablet extended release 24 hr Discontinued 12.5 MG PO Daily August 30, 2024 10:32pm October 28, 2024 12:31pm Start: 12-23-2023 take 12.5 mg by mout h once daily Metoprolol Succinate Active 12.5 MG PO Daily December 23, 2023 12:00am Start: 06-27-2022 End: 12-23-2023 take 2 tablets by mouth once daily Metoprolol Succinate 50 mg Tablet Extended Release 24 Hr Discontinued 25 MG PO Daily June 27, 2022 12:00am December 23, 2023 2:00pm Start: 06-27-2022 End: 12-23-2023 take 25 mg by mouth once daily Metoprolol Succinate Di scontinued 25 MG PO Daily June 27, 2022 12:00am December 23, 2023 2:00pm take 0.5 tablet by m outh once daily Metoprolol Succinate ER 25 MG TAKE 1/2 TABLET BY MOUTH ONCE DAILY for 90 Active potassium chloride 10 meq extended release oral tablet (16 sources) Start: 02-15-2025 take 1 tablet by mouth once daily Potassium Chloride 10 mEq tablet extended release Active 10 MEQ PO Daily February 15, 2025 2:06pm Complies with drug therapy Start: 05-12-2024 End: 02-15-2025 take 1 tablet by mouth once daily at mealtime Potassium Chloride 20 mEq tablet extended release Discontinued 0 .ROUTE .COMPLEX May 12, 2024 1:46pm February 15, 2025 2:06pm TAKE 1 TABLET BY MOUTH EVERY DAY WITH FOOD FOR 90 DAYS Start: 05-12-2024 take 1 tablet by humaira th once daily at mealtime Potassium Chloride Active 0 .ROUTE .COMPLEX May 12, 2024 1:46pm TAKE 1 TABLET BY MOUTH EVERY DAY WITH FOOD FOR 90 DAYS Start: 12-23-2023 End: 05-12-2024 take 1 tablet by mouth once daily Potassium Chloride 20 mEq tablet extended release Discontinued 20 MEQ PO Daily December 23, 2023 12:00am May 12, 2024 1:46pm take 1 tablet by humaira th every twenty-four hours Potassium Chloride ER 20 MEQ 1 tablet with food Orally Once a day for 90 days Active spironolactone 25 mg oral tablet (11 sources) Aldosterone Antagonist Start: 06-27-2022 take 1 tablet by mouth once daily Spironolactone 25 mg Tablet Active 25 MG PO Daily June 27, 2022 12:00am Complies with drug therapy Completed/Discontinued Medications Medication Drug Class(es) Dates Sig (Normalized) Sig (Original) allopurinol 100 mg oral tablet (18 sources) Xanthine Oxidase Inhibitor Start: 12-23-2023 End: 10-12-2024 take 1 tablet by mouth once daily Allopurinol 100 mg tablet Discontinued 100 MG PO Daily June 08, 2024 2:05pm October 12, 2024 4:34pm Start: 05-27-2023 take 1 tablet by humaira th every twenty-four hours Allopurinol 100 MG 1 tablet Orally Once a day for 90 days May, Active amiodarone hydrochloride 200 mg oral tablet (11 sources) Antiarrhythmic Start: 06-27-2022 End: 04-07-2025 take 1 tablet by mouth once daily Amiodarone 200 mg Tablet Discontinued 200 MG PO Daily June 27, 2022 12:00am April 07, 2025 9:43am docusate sodium 100 mg oral tablet (7 sources) Start: 06-27-2022 End: 12-23-2023 take 1 tablet by mouth three times daily as needed for constipation Docusate Sodium 100 mg Tablet Discontinued 100 MG PO Three times daily as needed for Constipation June 27, 2022 12:00am December 23, 2023 2:02pm take 1 capsule by [facility] every twenty-four hours Colace 100 MG 1 capsule as needed Orally Once a day Active doxycycline hyclate 100 mg oral capsule (6 sources) Tetracycline-class Drug Start: 06-27-2022 End: 12-23-2023 take 1 capsule by mouth twice daily Doxycycline Hyclate 100 mg capsule Discontinued 100 MG PO Twice daily 27 06June 27, 2022 12:00am December 23, 2023 2:02pm isosorbide dinitrate 10 mg oral tablet (20 sources) Nitrate Vasodilator Start: 06-05-2024 take 1 tablet by mouth three times daily Isosorbide Dinitrate Active 0 .ROUTE .COMPLEX June 05, 2024 7:40am TAKE 1 TABLET BY MOUTH THREE TIMES A DAY Start: 12-08-2023 End: 08-30-2024 take 1 tablet by mouth three times daily Isosorbide Dinitrate 10 mg tablet Discontinued 0 .ROUTE .COMPLEX June 05, 2024 7:40am August 30, 2024 10:33pm TAKE 1 TABLET BY MOUTH THREE TIMES A DAY Start: 12-08-2023 End: 03-08-2024 take 1 tablet by mouth three times daily Isosorbide Dinitrate Discontinued 0 .ROUTE .COMPLEX December 08, 2023 11:52am March 08, 2024 8:33am TAKE 1 TABLET BY MOUTH THREE TIMES A DAY Start: 12-08-2023 [facility] Isosorbide Dinitrate Active 0 .ROUTE .COMPLEX December 08, 2023 11:52am TAKE 1 TABLET BY MOUTH THREE TIMES A DAY Start: 06-27-2022 End: 12-08-2023 take 1 tablet by mouth three times daily Isosorbide Dinitrate 10 mg Tablet Discontinued 10 MG PO Three times daily June 27, 2022 12:00am December 08, 2023 11:52am allow nitrate-free interval of 12-14 hrs per 24-hr period Problems Active Problems Problem Classification Problem Date [...] disease (6 sources) Atherosclerotic heart disease of [place] coronary artery without angina pectoris; Translations: [Atherosclerosis [...] 04-04-2022 Hypertension with complications and secondary hypertension (17 sources) Hypertensive heart and chronic kidney disease with heart failure and stage 1 through stage 4 chronic kidney disease, or unspecified chronic kidney disease; Translations: [Hypertensive chronic kidney disease with stage 1 through stage 4 chronic kidney disease, or unspecified chronic kidney disease] Onset: 03-17-2022 Chronic Mycoses (3 sources) Candidiasis of skin and nails; Translations: [Candidiasis of skin and nail] Episodic Nutritional deficiencies (16 sources) Vitamin D deficiency; Translations: [Vitamin D deficiency, unspecified] Chronic Open wounds of extremities (4 sources) Unspecified open wound, left lower leg, sequela; Translations: [Open wound of knee and/or leg and/or ankle] Onset: 04-12-2022 Episodic Other circulatory disease (3 sources) Elevated blood-pressure reading without diagnosis of hypertension; Translations: [Elevated blood-pressure reading, without diagnosis of hypertension] Episodic Other diseases of kidney and ureters (7 sources) Cyst of kidney, acquired; Translations: [Cyst of kidney, acquired] Onset: 11-30-2022 Episodic Other diseases of kidney and ureters (6 sources) Acquired renal cystic disease; Translations: [Cyst [...] insufficiency (chronic) (peripheral)] Episodic Other endocrine disorders (10 sources) Hyperparathyroidism; Translations: [Hyperparathyroidism, unspecified] 12-21-2023 Chronic Other endocrine disorders (6 sources) Hyperparathyroidism, unspecified; Translations: [Hyperparathyroidism, unspecified] Chronic Other inflammatory condition of skin (1 source) Erythematous condition, unspecified; Translations: [Erythematous condition, unspecified] Onset: 06-27-2022 Episodic Other nutritional; endocrine; and metabolic disorders (5 sources) Morbid obesity; Translations: [Morbid (severe) obesity due to excess calories] Chronic Other nutritional; endocrine; and metabolic disorders (3 sources) Morbid (severe) obesity due to excess calories; Translations: [Morbid obesity] Onset: 04-04-2022 10-12-2024 Chronic Other nutritional; endocrine; and metabolic disorders (1 source) Body mass index (BMI) 45.0-49.9, adult; Translations: [BODY MASS INDEX BMI 45.0-49.9 ADULT] Onset: 12-21-2021 Chronic Other nutritional; endocrine; and metabolic disorders (10 sources) Body mass index 40+ - severely obese; Translations: [Body mass index (BMI) 40.0-44.9, adult] 10-12-2024 Chronic Other nutritional; endocrine; and metabolic disorders (6 sources) Hyperuricemia without signs of inflammatory arthritis and tophaceous disease; Translations: [Other abnormal blood chemistry] Episodic Other nutritional; endocrine; and metabolic disorders (6 sources) Hyperuricemia; Translations: [Hyperuricemia without signs of [...] Pseudomonas] Episodic Skin and subcutaneous tissue infections (17 sources) Cellulitis; Translations: [Cellulitis, unspecified] Onset: 12-13-2021 06-27-2022 Episodic Comment on above: Problem List clean-u p per request of Phys. EHR Cmte Unclassified (1 source) CONTACT W/AND (SUSP) EXPOS [...] Onset: 04-01-2022 Episodic Other aftercare (1 source) terminal supervisor (current) use of aspirin; Translations: [GROUP HOME CURRENT USE OF ASPIRIN] Onset: 07-18-2022 Episodic Other aftercare (3 sources) Other salvage determiner (current) drug therapy; Translations: [OTH GROUP HOME CURRENT DRUG THERAPY] Onset: 07-18-2022 Episodic Other aftercare (1 source) shelter (current) use of anticoagulants; Translations: [SOIL FERTILITY SPECIALIST CURRNT USE ANTICOAGULANTS] Onset: 04-26-2022 Episodic Other [...] Value Interpretation Reference Range Facility Orders Onlyon 03-26-2025 Orders Only [id number] Man Patel 1950 M Date Provider Department Center 03/26/2025 [facility] CARD [facility] Family History Problem Relation Age of Onset Coronary artery disease Mother Hyperlipidemia Mother Hypertension Mother Stroke Mother Diabetes Mother Coronary artery disease Father Hyperlipidemia Father Hypertension Father Family Status - Relation Status Age at Mother Father Sister Alive Brother Alive Normal [facility] Erythrocyte distribution wid th Auto (RBC) [Ratio]on 02-09-2025 Erythrocyte distribution width (RBC) [Ratio] Erythrocyte distribution width [Ratio] by Automated count High 11.0-15.0 [facility] Erythrocyte distribution width (RBC) [Ratio] 15.9 % High 11.0-15.0 [facility] Estimated glomerular filtrat ion rate (GFR) non- Americanon 02-09-2025 GFR/1.73 sq M.predicted among non-blacks MDRD (S/P/Bld) [Vol rate/Area] Estimated glomerular filtration rate (GFR) non- Low >=60 mL/min/1.73m 2 [facility] GFR/1.73 sq M.predicted among non-blacks MDRD (S/P/Bld) [Vol rate/Area] 23 mL/min/{1.73_m2} Low >=60 mL/min/1.73m 2 [facility] Hematocrit Auto (Bld) [Volum e fraction]on 02-09-2025 Hematocrit (Bld) [Volume fraction] Hematocrit [Volume Fraction] of Blood by Automated count 42.0-54.0 [facility] Hematocrit (Bld) [Volume fraction] 44.8 % 42.0-54.0 [facility] Hemoglobin [Mass/volume] in Bloodon 02-09-2025 Hemoglobin (Bld) [Mass/Vol] Hemoglobin [Mass/volume] in Blood 14.0-18.0 [facility] Hemoglobin (Bld) [Mass/Vol] 14.5 g/dL 14.0-18.0 [facility] Iron binding capacity [Mass/ volume] in Serum or Plasmaon 02-09-2025 Iron binding capacity [Mass/Vol] Iron binding capacity [Mass/volume] in Serum or Plasma 250.0-450.0 [facility] Iron binding capacity [Mass/Vol] 317.0 ug/dL 250.0-450.0 [facility] Iron saturation [Mass Fracti on] in Serum or Plasmaon 02-09-2025 Iron saturation [Mass fraction] Iron saturation [Mass Fraction] in Serum or Plasma [facility] Iron saturation [Mass fraction] 22.4 % [facility] Laboratory - Chemistry and C hemistry - challengeon 02-09-2025 Albumin [Mass/Vol] 3.7 g/dL 3.4-5.[address] [facility] Calcium [Mass/Vol] 9.5 mg/dL 8.5-10.[address] [facility] Chloride [Moles/Vol] 98 mmol/L 98-107 [facility] CO2 [Moles/Vol] 27.7 mmol/L 21.0-32.0 [facility] Cobalamin (Vitamin B12) [Mass/Vol] 520 pg/mL [id number] [facility] Comment on above: Performed at: [facility] - Liz ortega [address] [id number] Director: New Vega PhD, Phone: [phone] Creatinine [Mass/Vol] 2.75 mg/dL High 0.70-1.30 [facility] Ferritin [Mass/Vol] 85.0 ng/mL 26.0-388.0 [facility] GFR/1.73 sq M.predicted MDRD (S/P/Bld) [Vol rate/Area] 28 mL/min/{1.73_m2} Low >=60 mL/min/1.73m 2 [facility] Glucose [Mass/Vol] 143 mg/dL High 74-[address] [facility] Iron [Mass/Vol] 71.0 ug/dL 65.0-175.0 [facility] Magnesium [Mass/Vol] 2.7 mg/dL High 1.8-2.4 [facility] Potassium [Moles/Vol] 4.7 mmol/L 3.5-5.1 [facility] Sodium [Moles/Vol] 136 mmol/L 136-[address] [facility] Urate [Mass/Vol] 7.6 mg/dL High 3.5-7.2 [facility] Urea nitrogen [Mass/Vol] 63.0 mg/dL High 7.0-18.0 [facility] Urea nitrogen/Creatinine [Mass ratio] 22.9 mg/mg [facility] Laboratory - Urinalysison Protein (U) [Mass/Vol] 21.4 mg/dL High <=11.9 [facility] Leukocytes [#/volume] correc chester for nucleated erythrocytes in Blood by Automated counon 02-09-2025 WBC corrected for nucl RBC Auto (Bld) [#/Vol] Leukocytes [#/volume] corrected for nucleated erythrocytes in Blood by Automated coun 4.0-11.0 [facility] WBC corrected for nucl RBC Auto (Bld) [#/Vol] 8.5 10 3/uL 4.0-11.0 [facility] MCH Auto (RBC) [Entitic mass ]on 02-09-2025 MCH (RBC) [Entitic mass] MCH [Entitic mass] by Automated count 25.9-34.0 [facility] MCH (RBC) [Entitic mass] 28.6 pg 25.9-34.0 [facility] MCHC Auto (RBC) [Mass/Vol]on 02-09-2025 MCHC (RBC) [Mass/Vol] MCHC [Mass/volume] by Automated count 29.9-35.2 [facility] MCHC (RBC) [Mass/Vol] 32.4 g/dL 29.9-35.2 [facility] MCV Auto (RBC) [Entitic vol] on 02-09-2025 MCV (RBC) [Entitic vol] MCV [Entitic volume] by Automated count 80.0-94.0 [facility] MCV (RBC) [Entitic vol] 88.4 fL 80.0-94.0 [facility] No Panel Informationon 02-09 25-Hydroxy Vitamin D Total 40.6 ng/mL [facility] Comment on above: <20 ng/mL Vit D defi cient20-<30 ng/mL Vit D [id number] ng/mL Vit D sufficient>100 ng/mL Potential Toxicity Folate 16.80 ng/mL 8.60-58.90 [facility] Parathyroid Hormone (Intact) 106 pg/mL Abnormal 15-65 [facility] Comment on above: Performed at: [employer] [address] Director: New Vega PhD, Phone: [phone] Phosphorus Level 3.0 mg/dL 2.6-4.7 [facility] Urine Random Creatinine 126.10 mg/dL 20.00-300.00 [facility] Platelet mean volume Auto (B ld) [Entitic vol]on 02-09-2025 Platelet mean volume (Bld) [Entitic vol] Platelet mean volume [Entitic volume] in Blood by Automated count 9.5-13.5 [facility] Platelet mean volume (Bld) [Entitic vol] 10.1 fL 9.5-13.5 [facility] Platelets Auto (Bld) [#/Vol] on 02-09-2025 Platelets (Bld) [#/Vol] Platelets [#/volume] in Blood by Automated count 150-450 [facility] Platelets (Bld) [#/Vol] 169 10 3/uL 150-450 [facility] RBC Auto (Bld) [#/Vol]on RBC (Bld) [#/Vol] Erythrocytes [#/volu me] in Blood by Automated count 4.70-6.10 [facility] RBC (Bld) [#/Vol] 5.07 10 6/uL 4.70-6.10 [facility] Serum or plasma anion gap de terminationon 02-09-2025 Anion gap [Moles/Vol] Serum or plasma an ion gap determination [facility] Anion gap [Moles/Vol] 15.0 mmol/L [facility] Urine protein/creatinine rat ioon 02-09-2025 Protein/Creatinine (U) [Ratio] Urine protein/creatinine ratio [facility] Protein/Creatinine (U) [Ratio] 0.17 [facility] Basophils/100 WBC Manual cnt (Bld)on 01-03-2025 Basophils/100 WBC (Bld) Basophils/100 leukocytes in Blood by Manual count 0.2-2.0 [facility] Eosinophils/100 WBC Manual c nt (Bld)on 01-03-2025 Eosinophils/100 WBC (Bld) Eosinophils/100 leukocytes in Blood by Manual count 0.9-7.0 [facility] Estimated glomerular filtrat ion rate (GFR) non- Americanon 01-03-2025 GFR/1.73 sq M.predicted among non-blacks MDRD (S/P/Bld) [Vol rate/Area] Estimated glomerular filtration rate (GFR) non- Low >=60 mL/min/1.73m 2 [facility] Laboratory - Chemistry and C hemistry - challengeon 01-03-2025 Calcium [Mass/Vol] 9.1 mg/dL 8.5-10.[address] [facility] Chloride [Moles/Vol] 100 mmol/L 98-107 [facility] CO2 [Moles/Vol] 29.0 mmol/L 21.0-32.0 [facility] Creatinine [Mass/Vol] 3.05 mg/dL High 0.70-1.30 [facility] GFR/1.73 sq M.predicted MDRD (S/P/Bld) [Vol rate/Area] 25 mL/min/{1.73_m2} Low >=60 mL/min/1.73m 2 [facility] Glucose [Mass/Vol] 115 mg/dL High 74-[address] [facility] Potassium [Moles/Vol] 4.5 mmol/L 3.5-5.1 [facility] Sodium [Moles/Vol] 138 mmol/L 136-[address] [facility] Urea nitrogen [Mass/Vol] 56.0 mg/dL High 7.0-18.0 [facility] Urea nitrogen/Creatinine [Mass ratio] 18.4 mg/mg [facility] Laboratory - Hematology and Cell countson 01-03-2025 Lymphocytes/100 WBC (Bld) 4.0 % Low 20.5-60.0 [facility] Monocytes/100 WBC (Bld) 7.0 % 1.7-12.0 [facility] No Panel Informationon 01-03 Absolute Basophils (Manual) 0.09 10 3/uL 0.00-0.10 [facility] Eosinophils # (Manual) 0.36 10 3/uL 0.00-0.70 [facility] Lymphocytes # (Manual) 0.36 10 3/uL Low 1.20-3.80 [facility] Monocytes # (Manual) 0.64 10 3/uL 0.30-0.80 [facility] Segmented Neutrophils # (Manual) 7.72 10 3/uL High 1.4-6.5 [facility] Office Visiton 01-03-2025 Follow-up visit [id number] Man Patel 1950 M Date Provider Department Center 01/03/2025 LI MADDOX LENA [facility] Family History Problem Relation Age of Onset Coronary artery disease Mother Hyperlipidemia Mother Hypertension Mother Stroke Mother Diabetes Mother Coronary artery disease Father Hyperlipidemia Father Hypertension Father Family Status - Relation Status Age at Mother Father Sister Alive Brother Alive Level of Service:04844 MD OFFICE/OUTPATIENT ESTABLISHED MOD MDM 30 MIN Normal [facility] Segmented neutrophils/100 WB C Manual cnt (Bld)on 01-03-2025 Segmented neutrophils/100 WBC (Bld) Manual blood segmented neutrophils/100 leukocytes High 43.0-75.0 [facility] Serum or plasma anion gap de terminationon 01-03-2025 Anion gap [Moles/Vol] Serum or plasma an ion gap determination [facility] Erythrocyte distribution wid th Auto (RBC) [Ratio]on 10-08-2024 Erythrocyte distribution width (RBC) [Ratio] Erythrocyte distribution width [Ratio] by Automated count High 11.0-15.0 [facility] Estimated glomerular filtrat ion rate (GFR) non- Americanon 10-08-2024 GFR/1.73 sq M.predicted among non-blacks MDRD (S/P/Bld) [Vol rate/Area] Estimated glomerular filtration rate (GFR) non- Low >=60 mL/min/1.73m 2 [facility] Hematocrit Auto (Bld) [Volum e fraction]on 10-08-2024 Hematocrit (Bld) [Volume fraction] Hematocrit [Volume Fraction] of Blood by Automated count 42.0-54.0 [facility] Hemoglobin [Mass/volume] in Bloodon 10-08-2024 Hemoglobin (Bld) [Mass/Vol] Hemoglobin [Mass/volume] in Blood Low 14.0-18.0 [facility] Laboratory - Chemistry and C hemistry - challengeon 10-08-2024 Albumin [Mass/Vol] 3.8 g/dL 3.4-5.[address] [facility] Calcium [Mass/Vol] 9.4 mg/dL 8.5-10.[address] [facility] Chloride [Moles/Vol] 100 mmol/L 98-107 [facility] CO2 [Moles/Vol] 30.8 mmol/L 21.0-32.0 [facility] Creatinine [Mass/Vol] 2.95 mg/dL High 0.70-1.30 [facility] GFR/1.73 sq M.predicted MDRD (S/P/Bld) [Vol rate/Area] 26 mL/min/{1.73_m2} Low >=60 mL/min/1.73m 2 [facility] Glucose [Mass/Vol] 131 mg/dL High 74-[address] [facility] Magnesium [Mass/Vol] 2.4 mg/dL 1.8-2.4 [facility] Potassium [Moles/Vol] 4.4 mmol/L 3.5-5.1 [facility] Sodium [Moles/Vol] 138 mmol/L 136-[address] [facility] Urate [Mass/Vol] 8.4 mg/dL High 3.5-7.2 [facility] Urea nitrogen [Mass/Vol] 63.0 mg/dL High 7.0-18.0 [facility] Urea nitrogen/Creatinine [Mass ratio] 21.4 mg/mg [facility] Laboratory - Urinalysison Protein (U) [Mass/Vol] 19.9 mg/dL High <=11.9 [facility] Leukocytes [#/volume] correc chester for nucleated erythrocytes in Blood by Automated counon 10-08-2024 WBC corrected for nucl RBC Auto (Bld) [#/Vol] Leukocytes [#/volume] corrected for nucleated erythrocytes in Blood by Automated coun 4.0-11.0 [facility] MCH Auto (RBC) [Entitic mass ]on 10-08-2024 MCH (RBC) [Entitic mass] MCH [Entitic mass] by Automated count 25.9-34.0 [facility] MCHC Auto (RBC) [Mass/Vol]on 10-08-2024 MCHC (RBC) [Mass/Vol] MCHC [Mass/volume] by Automated count 29.9-35.2 [facility] MCV Auto (RBC) [Entitic vol] on 10-08-2024 MCV (RBC) [Entitic vol] MCV [Entitic volume] by Automated count 80.0-94.0 [facility] No Panel Informationon 10-08 25-Hydroxy Vitamin D Total 34.4 ng/mL [facility] Comment on above: <20 ng/mL Vit D defi cient20-<30 ng/mL Vit D [id number] ng/mL Vit D sufficient>100 ng/mL Potential Toxicity Parathyroid Hormone (Intact) 85 pg/mL Abnormal 15-65 [facility] Comment on above: Performed at: [address] [id number] Director: New Vega PhD, Phone: [phone] Phosphorus Level 3.6 mg/dL 2.6-4.7 [facility] Urine Random Creatinine 107.67 mg/dL 20.00-300.00 [facility] Platelet mean volume Auto (B ld) [Entitic vol]on 10-08-2024 Platelet mean volume (Bld) [Entitic vol] Platelet mean volume [Entitic volume] in Blood by Automated count 9.5-13.5 [facility] Platelets Auto (Bld) [#/Vol] on 10-08-2024 Platelets (Bld) [#/Vol] Platelets [#/volume] in Blood by Automated count 150-450 [facility] RBC Auto (Bld) [#/Vol]on RBC (Bld) [#/Vol] Erythrocytes [#/volu me] in Blood by Automated count Low 4.70-6.10 [facility] Serum or plasma anion gap de terminationon 10-08-2024 Anion gap [Moles/Vol] Serum or plasma an ion gap determination [facility] Urine protein/creatinine rat ioon 10-08-2024 Protein/Creatinine (U) [Ratio] Urine protein/creatinine ratio [facility] Orders Onlyon 09-14-2024 Orders Only [id number] Man Patel 1950 Provider Department Center 09/14/2024 HOMERO VEGA [facility] Family History Problem Relation Age of Onset Coronary artery disease Mother Hyperlipidemia Mother Hypertension Mother Stroke Mother Diabetes Mother Coronary artery disease Father Hyperlipidemia Father Hypertension Father Family Status - Relation Status Age at Mother Father Normal [facility] Office Visiton 08-03-2024 Follow-up visit [id number] Man Patel 1950 Provider Department Center 08/03/2024 HOLLAND HATHAWAY LENA [facility] Family History Problem Relation Age of Onset Coronary artery disease Mother Hyperlipidemia Mother Hypertension Mother Stroke Mother Diabetes Mother Coronary artery disease Father Hyperlipidemia Father Hypertension Father Family Status - Relation Status Age at Mother Father Level of Service:55059 MD OFFICE/OUTPATIENT NEW MODERATE MDM 45 MINUTES Reason for Visit and Comments: Follow-up [509639] Normal [facility] Office Visiton 06-21-2024 Follow-up visit [id number] Man Patel 1950 Date Provider Department Center 06/21/2024 LI MADDOX LENA [facility] Family History Problem Relation Age of Onset Coronary artery disease Mother Hyperlipidemia Mother Hypertension Mother Stroke Mother Diabetes Mother Coronary artery disease Father Hyperlipidemia Father Hypertension Father Family Status - Relation Status Age at Mother Father Level of Service:[id number] MD OFFICE/OUTPATIENT ESTABLISHED MOD MDM 30 MIN Normal [facility] 36on 06-18-2024 36 Per diogo increase bumax to 3 mg TID and see GVM sharlene. Pt informed and appt made for friday Normal [facility] Orders Onlyon 06-17-2024 Orders Only [id number] Man Patel 1950 M Date Provider Department Center 06/17/2024 DANNIE GO LENA [facility] Family History Problem Relation Age of Onset Coronary artery disease Mother Hyperlipidemia Mother Hypertension Mother Stroke Mother Diabetes Mother Coronary artery disease Father Hyperlipidemia Father Hypertension Father Family Status - Relation Status Age at Mother Father Normal [facility] Office Visiton 06-09-2024 Follow-up visit [id number] Man Patel 1950 M Date Provider Department Center 06/09/2024 LI MADDOX LENA [facility] Family History Problem Relation Age of Onset Coronary artery disease Mother Hyperlipidemia Mother Hypertension Mother Stroke Mother Diabetes Mother Coronary artery disease Father Hyperlipidemia Father Hypertension Father Family Status - Relation Status Age at Mother Father Level of Service:[id number] MD OFFICE/OUTPATIENT ESTABLISHED HIGH MDM 40 MIN Normal [facility] Erythrocyte distribution wid th Auto (RBC) [Ratio]on 06-02-2024 Erythrocyte distribution width (RBC) [Ratio] 15.0 % 11.0-15.0 [facility] Estimated glomerular filtrat ion rate (GFR) non- Americanon 06-02-2024 GFR/1.73 sq M.predicted among non-blacks MDRD (S/P/Bld) [Vol rate/Area] 25 mL/min/{1.73_m2} Low >=60 [facility] Hematocrit Auto (Bld) [Volum e fraction]on 06-02-2024 Hematocrit (Bld) [Volume fraction] 48.1 % 42.0-54.0 [facility] Hemoglobin [Mass/volume] in Bloodon 06-02-2024 Hemoglobin (Bld) [Mass/Vol] 15.3 g/dL 14.0-18.0 [facility] Laboratory - Chemistry and C hemistry - challengeon 06-02-2024 Albumin [Mass/Vol] 3.9 g/dL 3.4-5.[address] [facility] Calcium [Mass/Vol] 9.6 mg/dL 8.5-10.[address] [facility] Chloride [Moles/Vol] 99 mmol/L 98-107 [facility] CO2 [Moles/Vol] 32.9 mmol/L High 21.0-32.0 [facility] Creatinine [Mass/Vol] 2.55 mg/dL High 0.70-1.30 [facility] GFR/1.73 sq M.predicted MDRD (S/P/Bld) [Vol rate/Area] 30 mL/min/{1.73_m2} Low >=60 [facility] Glucose [Mass/Vol] 117 mg/dL High 74-[address] [facility] Magnesium [Mass/Vol] 2.5 mg/dL High 1.8-2.4 [facility] Potassium [Moles/Vol] 4.0 mmol/L 3.5-5.1 [facility] Sodium [Moles/Vol] 135 mmol/L Low 136-[address] [facility] Urate [Mass/Vol] 8.1 mg/dL High 3.5-7.2 [facility] Urea nitrogen [Mass/Vol] 57.0 mg/dL High 7.0-18.0 [facility] Urea nitrogen/Creatinine [Mass ratio] 22.4 mg/mg [facility] Bilirubin Ql (U) Negative NEGATIVE [facility] Glucose (U) [Mass/Vol] Negative NEGATIVE [facility] Ketones Ql (U) Negative NEGATIVE [facility] pH (U) 6.5 [pH] 5.0-9.0 [facility] Specific gravity (U) [Rel density] 1.015 1.005-1.025 [facility] Urobilinogen Qn (U) 2.0 {Caden'U}/dL Abnormal 0.2-1.0 [facility] Laboratory - Specimen inform ationon 06-02-2024 Appearance (U) CLEAR CLEAR [facility] Color (U) LT. YELLOW YELLOW [facility] - Urinalysison Leukocyte esterase Test strip Ql (U) Negative NEGATIVE [facility] Nitrite Ql (U) Negative NEGATIVE [facility] Protein (U) [Mass/Vol] 18.3 mg/dL High <=11.9 [facility] Protein Ql (U) Negative NEG/TRACE [facility] Leukocytes [#/volume] correc chester for nucleated erythrocytes in Blood by Automated counon 06-02-2024 WBC corrected for nucl RBC Auto (Bld) [#/Vol] 8.5 10 3/uL 4.0-11.0 [facility] MCH Auto (RBC) [Entitic mass ]on 06-02-2024 MCH (RBC) [Entitic mass] 30.2 pg 25.9-34.0 [facility] MCHC Auto (RBC) [Mass/Vol]on 06-02-2024 MCHC (RBC) [Mass/Vol] 31.8 g/dL 29.9-35.2 [facility] MCV Auto (RBC) [Entitic vol] on 06-02-2024 MCV (RBC) [Entitic vol] 94.9 fL High 80.0-94.0 [facility] Microalbumin [Mass/volume] i n Urineon 06-02-2024 Albumin DL <= 20 mg/L (U) [Mass/Vol] mg/dL <=30.0 [facility] No Panel Informationon 06-02 25-Hydroxy Vitamin D Total 29.9 ng/mL [facility] Comment on above: <20 ng/mL Vit D defi cient20-<30 ng/mL Vit D [id number] ng/mL Vit D sufficient>100 ng/mL Potential Toxicity Parathyroid Hormone (Intact) 85 pg/mL Abnormal 15-65 [facility] Comment on above: Performed at: - [address] [id number] Director: New Vega PhD, Phone: [phone] Phosphorus Level 3.3 mg/dL 2.6-4.7 [facility] Urine Occult Blood Negative NEGATIVE [facility] Urine Random Creatinine 96.57 mg/dL 20.00-300.00 [facility] Platelet mean volume Auto (B ld) [Entitic vol]on 06-02-2024 Platelet mean volume (Bld) [Entitic vol] 9.9 fL 9.5-13.5 [facility] Platelets Auto (Bld) [#/Vol] on 06-02-2024 Platelets (Bld) [#/Vol] 182 10 3/uL 150-450 [facility] RBC Auto (Bld) [#/Vol]on RBC (Bld) [#/Vol] 5.07 10 6/uL 4.70-6.10 [facility] Serum or plasma anion gap de terminationon 06-02-2024 Anion gap [Moles/Vol] 7.1 mmol/L [facility] Urine microalbumin/creatinin e mass ratioon 06-02-2024 Albumin/Creatinine DL <= 20 mg/L (U) [Mass ratio] 13.4 mg/g 0.0-29.9 [facility] Comment on above: NO MICROALBUMINURIA 0-29 MG/GCLINICAL MICROALBUMINURIA 30-300 MG/GMACROALBUMINURIA >300 MG/G Urine protein/creatinine rat ioon 06-02-2024 Protein/Creatinine (U) [Ratio] 0.19 [facility] Office Visiton 05-05-2024 Follow-up visit [id number] Man Patel 1950 M Date Provider Department Center 05/05/2024 CYNTHIA WILLIAMSON CARD [facility] Family History Problem Relation Age of Onset Coronary artery disease Mother Hyperlipidemia Mother Hypertension Mother Stroke Mother Diabetes Mother Coronary artery disease Father Hyperlipidemia Father Hypertension Father Family Status - Relation Status Age at Mother Father Level of Service:44300 MD OFFICE/OUTPATIENT ESTABLISHED MOD MDM 30 MIN Reason for Visit and Comments: Congestive Heart Failure [127] Coronary Artery Disease [187] Normal [facility] Basophils Auto (Bld) [#/Vol] on 04-30-2024 Basophils (Bld) [#/Vol] 0.1 10 3/uL 0.0-0.1 [facility] Basophils/100 WBC Auto (Bld) on 04-30-2024 Basophils/100 WBC (Bld) 0.8 % 0.2-2.0 [facility] Cholesterol in LDL Calc [Mas s/Vol]on 04-30-2024 Cholesterol in LDL [Mass/Vol] 35.0 mg/dL [facility] Comment on above: <100 mg/dl [id number] 0-129 mg/dl NEAR OR ABOVE [id number] mg/dl BORDERLINE [id number] mg/dl HIGH>190 mg/dl VERY HIGH Cholesterol in VLDL Calc [Ma ss/Vol]on 04-30-2024 Cholesterol in VLDL [Mass/Vol] 8.0 mg/dL [facility] Eosinophils/100 WBC Auto (Bl d)on 04-30-2024 Eosinophils/100 WBC (Bld) 8.4 % High 0.9-7.0 [facility] Erythrocyte distribution wid th Auto (RBC) [Ratio]on 04-30-2024 Erythrocyte distribution width (RBC) [Ratio] 15.3 % High 11.0-15.0 [facility] Estimated glomerular filtrat ion rate (GFR) non- Americanon 04-30-2024 GFR/1.73 sq M.predicted among non-blacks MDRD (S/P/Bld) [Vol rate/Area] 26 mL/min/{1.73_m2} Low >=60 [facility] Globulin Calc (S) [Mass/Vol] on 04-30-2024 Globulin (S) [Mass/Vol] 3.6 g/dL [facility] Hematocrit Auto (Bld) [Volum e fraction]on 04-30-2024 Hematocrit (Bld) [Volume fraction] 45.6 % 42.0-54.0 [facility] Hemoglobin [Mass/volume] in Bloodon 04-30-2024 Hemoglobin (Bld) [Mass/Vol] 14.7 g/dL 14.0-18.0 [facility] Laboratory - Chemistry and C hemistry - challengeon 04-30-2024 Albumin [Mass/Vol] 3.6 g/dL 3.4-5.[address] [facility] ALP [Catalytic activity/Vol] 110 U/L 46-116 [facility] ALT [Catalytic activity/Vol] 19 U/L 16-63 [facility] AST [Catalytic activity/Vol] 19 U/L 15-37 [facility] Bilirubin [Mass/Vol] 1.2 mg/dL High 0.2-1.0 [facility] Calcium [Mass/Vol] 9.2 mg/dL 8.5-10.[address] [facility] Chloride [Moles/Vol] 100 mmol/L 98-107 [facility] Cholesterol [Mass/Vol] 101 mg/dL <=200 [facility] Cholesterol in HDL [Mass/Vol] 58 mg/dL 40-60 [facility] Comment on above: > or =60 mg/dl - LOW CARDIOVASCULAR RISK<40 mg/dl - HIGH CARDIOVASCULAR RISK CO2 [Moles/Vol] 27.5 mmol/L 21.0-32.0 [facility] Creatinine [Mass/Vol] 2.45 mg/dL High 0.70-1.30 [facility] Free T4 [Mass/Vol] 1.26 ng/dL 0.76-1.[address] [facility] GFR/1.73 sq M.predicted MDRD (S/P/Bld) [Vol rate/Area] 32 mL/min/{1.73_m2} Low >=60 [facility] Glucose [Mass/Vol] 122 mg/dL High 74-[address] [facility] Potassium [Moles/Vol] 4.1 mmol/L 3.5-5.1 [facility] Protein [Mass/Vol] 7.2 g/dL 6.4-8.[address] [facility] Sodium [Moles/Vol] 137 mmol/L 136-[address] [facility] Triglyceride [Mass/Vol] 40 mg/dL <=150 [facility] TSH Qn 2.710 m[IU]/L 0.358-3.740 [facility] Urea nitrogen [Mass/Vol] 53.0 mg/dL High 7.0-18.0 [facility] Urea nitrogen/Creatinine [Mass ratio] 21.6 mg/mg [facility] Laboratory - Hematology and Cell countson 04-30-2024 Immature granulocytes/100 WBC (Bld) 0.6 % High 0.0-0.5 [facility] Leukocytes [#/volume] correc chester for nucleated erythrocytes in Blood by Automated counon 04-30-2024 WBC corrected for nucl RBC Auto (Bld) [#/Vol] 7.2 10 3/uL 4.0-11.0 [facility] Lymphocytes Auto (Bld) [#/Vo l]on 04-30-2024 Lymphocytes (Bld) [#/Vol] 0.7 10 3/uL Low 1.2-3.8 [facility] Lymphocytes/100 WBC Auto (Bl d)on 04-30-2024 Lymphocytes/100 WBC (Bld) 9.7 % Low 20.5-60.0 [facility] MCH Auto (RBC) [Entitic mass ]on 04-30-2024 MCH (RBC) [Entitic mass] 30.0 pg 25.9-34.0 [facility] MCHC Auto (RBC) [Mass/Vol]on 04-30-2024 MCHC (RBC) [Mass/Vol] 32.2 g/dL 29.9-35.2 [facility] MCV Auto (RBC) [Entitic vol] on 04-30-2024 MCV (RBC) [Entitic vol] 93.1 fL 80.0-94.0 [facility] Monocytes Auto (Bld) [#/Vol] on 04-30-2024 Monocytes (Bld) [#/Vol] 0.6 10 3/uL 0.3-0.8 [facility] Monocytes/100 WBC Auto (Bld) on 04-30-2024 Monocytes/100 WBC (Bld) 8.2 % 1.7-12.0 [facility] Neutrophils Auto (Bld) [#/Vo l]on 04-30-2024 Neutrophils (Bld) [#/Vol] 5.2 10 3/uL 1.4-6.5 [facility] Neutrophils/100 WBC Auto (Bl d)on 04-30-2024 Neutrophils/100 WBC (Bld) 72.3 % 43.0-75.0 [facility] No Panel Informationon 04-30 Eosinophils # (Auto) 0.6 10 3/uL 0.0-0.7 [facility] Immature Granulocyte # (Auto) 0.04 10 3/uL High 0.00-0.03 [facility] Platelet mean volume Auto (B ld) [Entitic vol]on 04-30-2024 Platelet mean volume (Bld) [Entitic vol] 10.7 fL 9.5-13.5 [facility] Platelets Auto (Bld) [#/Vol] on 04-30-2024 Platelets (Bld) [#/Vol] 171 10 3/uL 150-450 [facility] RBC Auto (Bld) [#/Vol]on RBC (Bld) [#/Vol] 4.90 10 6/uL 4.70-6.10 [facility] Serum or plasma albumin/glob ulin mass ratioon 04-30-2024 Albumin/Globulin [Mass ratio] 1.0 {ratio} [facility] Serum or plasma anion gap de terminationon 04-30-2024 Anion gap [Moles/Vol] 13.6 mmol/L Fi [facility] Serum or plasma total choles terol/high density lipoprotein (HDL) cholesterol mass ralf 04-30-2024 Cholesterol.total/Chol esterol in HDL [Mass ratio] 1.7 {ratio} [facility] Comment on above: 3.3 - 4.4 LOW RISK4. 4 - 7.1 AVERAGE RISK7.1 - 11.0 MODERATE RISK>11.0 HIGH RISK 36on 04-26-2024 36 Spoke with patient's last week and made her aware that [facility] would be calling to schedule this echo w/ [facility]. [facility] 36on 04-13-2024 36 Regarding echo resul t from 04/06/2024: MD Key Mao MA He needs a limited echo for LVEF with echocontrast (at [facility]). 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 Can this be done at [facility] with Mallory? I already know he's not going to be keen on driving to [place]. But if you insist, I will make him aware of the need to go to [facility]. Just thought I'd ask. [facility] Erythrocyte distribution wid th Auto (RBC) [Ratio]on 12-17-2023 Erythrocyte distribution width (RBC) [Ratio] 15.6 % 11.0-15.0 [facility] Estimated glomerular filtrat ion rate (GFR) non- Americanon 12-17-2023 GFR/1.73 sq M.predicted among non-blacks MDRD (S/P/Bld) [Vol rate/Area] 22 mL/min/{1.73_m2} >=60 [facility] Globulin Calc (S) [Mass/Vol] on 12-17-2023 Globulin (S) [Mass/Vol] 4.2 g/dL [facility] Hematocrit Auto (Bld) [Volum e fraction]on 12-17-2023 Hematocrit (Bld) [Volume fraction] 46.1 % 42.0-54.0 [facility] Hemoglobin [Mass/volume] in Bloodon 12-17-2023 Hemoglobin (Bld) [Mass/Vol] 14.9 g/dL 14.0-18.0 [facility] Laboratory - Chemistry and C hemistry - challengeon 12-17-2023 Albumin [Mass/Vol] 3.9 g/dL 3.4-5.[address] [facility] ALP [Catalytic activity/Vol] 131 U/L 46-116 [facility] ALT [Catalytic activity/Vol] 21 U/L 16-63 [facility] AST [Catalytic activity/Vol] 20 U/L 15-37 [facility] Bilirubin [Mass/Vol] 1.1 mg/dL 0.2-1.0 [facility] Calcium [Mass/Vol] 9.5 mg/dL 8.5-10.[address] [facility] Chloride [Moles/Vol] 100 mmol/L 98-107 [facility] CO2 [Moles/Vol] 26.5 mmol/L 21.0-32.0 [facility] Creatinine [Mass/Vol] 2.90 mg/dL 0.70-1.30 [facility] GFR/1.73 sq M.predicted MDRD (S/P/Bld) [Vol rate/Area] 26 mL/min/{1.73_m2} >=60 [facility] Glucose [Mass/Vol] 112 mg/dL 74-[address] [facility] Magnesium [Mass/Vol] 2.9 mg/dL 1.8-2.4 [facility] Potassium [Moles/Vol] 4.4 mmol/L 3.5-5.1 [facility] Protein [Mass/Vol] 8.1 g/dL 6.4-8.[address] [facility] Sodium [Moles/Vol] 139 mmol/L 136-[address] [facility] Urate [Mass/Vol] 7.8 mg/dL 3.5-7.2 [facility] Urea nitrogen [Mass/Vol] 64.0 mg/dL 7.0-18.0 [facility] Urea nitrogen/Creatinine [Mass ratio] 22.1 mg/mg [facility] Leukocytes [#/volume] correc chester for nucleated erythrocytes in Blood by Automated counon 12-17-2023 WBC corrected for nucl RBC Auto (Bld) [#/Vol] 7.3 10 3/uL 4.0-11.0 [facility] MCH Auto (RBC) [Entitic mass ]on 12-17-2023 MCH (RBC) [Entitic mass] 29.6 pg 25.9-34.0 [facility] MCHC Auto (RBC) [Mass/Vol]on 12-17-2023 MCHC (RBC) [Mass/Vol] 32.3 g/dL 29.9-35.2 [facility] MCV Auto (RBC) [Entitic vol] on 12-17-2023 MCV (RBC) [Entitic vol] 91.5 fL 80.0-94.0 [facility] No Panel Informationon 12-16 25-Hydroxy Vitamin D Total 27.7 ng/mL [facility] Comment on above: <20 ng/mL Vit D defi cient20-<30 ng/mL Vit D huzxpamqsnlm05-907 ng/mL Vit D sufficient>100 ng/mL Potential Toxicity Miscellaneous Test COMMENT . [facility] Comment on above: Test Ordered: [id number] Prot+CreatU (Random)Creatinine, Urine 15.1 mg/dL CB Reference Range: Not Estab.Protein,Total,Urine <4.0 mg/dL CB Reference Range: Not Estab.Verified by repeat analysisProtein/Creat Ratio Comment [A ] CB Units of Measure: mg/g creat Reference Range: 0-200This result is below the assay's limit of quantitationindicating a dilute specimen, potentially due to diurnalvariation. Consider recollection at a time likely toprovide a more concentrated urine.Performed at: [facility] [address] [id number] Director: New Vega PhD, Phone: [phone] Parathyroid Hormone (Intact) 140 pg/mL [facility] Comment on above: Performed at: [facility] [address] [id number] Director: New Vega PhD, Phone: [phone] Phosphorus Level 3.7 mg/dL 2.6-4.7 [facility] Platelet mean volume Auto (B ld) [Entitic vol]on 12-17-2023 Platelet mean volume (Bld) [Entitic vol] 10.8 fL 9.5-13.5 [facility] Platelets Auto (Bld) [#/Vol] on 12-17-2023 Platelets (Bld) [#/Vol] 195 10 3/uL 150-450 [facility] RBC Auto (Bld) [#/Vol]on RBC (Bld) [#/Vol] 5.04 10 6/uL 4.70-6.10 [facility] Serum or plasma albumin/glob ulin mass ratioon 12-17-2023 Albumin/Globulin [Mass ratio] 0.9 {ratio} [facility] Serum or plasma anion gap de terminationon 12-17-2023 Anion gap [Moles/Vol] 16.9 mmol/L [facility] PTH INTACTon 12-04-2022 PTH, Intact 66 pg/mL Critically high [facility] Comment on above: Performed By: #### P THINT ####[facility] [address] [place] [address]DrLatoya Anthony HEMOGRAM AND PLATELon 2022 Hematocrit (Bld) [Volume fraction] 43.4 % Normal 42.0-54.0 [facility] Comment on above: Performed By: #### H H ####[facility] Ftw[address]ovxna[address] [place] [address]DrLatoya Elba Anthony Hemoglobin (Bld) [Mass/Vol] 14.1 g/dL Normal 14.0-18.0 [facility] Comment on above: Performed By: #### H H ####[facility] [address]ntb[address] [place], [place] [address]Dr. Elba Anthony MCH (RBC) [Entitic mass] 28.2 pg Normal 25.9-34.0 [facility] Comment on above: Performed By: #### H H ####[facility] [address] [place], [place] [address]DrLatoya Anthony MCHC (RBC) [Mass/Vol] 32.5 g/dL Normal 29.9-35.2 [facility] Comment on above: Performed By: #### H H ####[facility] Jxkarql[address] [place], [place] [address]DrLatoya Anthony MCV (RBC) [Entitic vol] 86.8 fL Normal 80.0-94.0 [facility] Comment on above: Performed By: #### H H ####[facility] K[address] [place], [place] [address]DrLatoya Anthony PLT 170 103/ul Normal 150-450 [facility] Comment on above: Performed By: #### H H ####[facility] Goqifumwve020[address] [place], [place] [address]DrLatoya Anthony RBC 5.00 106/ul Normal 4.70-6.10 [facility] Comment on above: Performed By: #### H H ####[facility] C[address]azva[address] [place], [place] [address]DrLatoya Anthony WBC 7.2 103/ul Normal 4.0-11.0 [facility] Comment on above: Performed By: #### H H ####[facility] Fbavxznpce[address] [place], [place] [address]DrLatoya Anthony MAGNESIUMon 12-03-2022 Magnesium [Mass/Vol] 2.6 mg/dL Critically high 1.8-2.4 [facility] Comment on above: Performed By: #### C MP, URIC, PHOS, MG ####[facility] [address]zv[address] [place] [address]Dr. Elba Anthony PHOSPHORUSon 12-03-2022 Phosphate [Mass/Vol] 3.9 mg/dL Normal 2.6-4.7 [facility] Comment on above: Performed By: #### C MP, URIC, PHOS, MG ####[facility] Ynzgsyrdfr[address] [place] [address]Dr. Elba Anthony PROF 14(COMP METB)on 023 Albumin [Mass/Vol] 4.0 g/dL Normal 3.4-5.0 [facility] Comment on above: Performed By: #### C MP, URIC, PHOS, MG ####[facility] [address]duok[address] [place] [address]Dr. Elba Anthony Albumin/Globulin [Mass ratio] 0.9 {ratio} Normal [facility] Comment on above: Performed By: #### C MP, URIC, PHOS, MG ####[facility] Utceazykjm[address] [place] [address]Dr. Elba Anthony ALP [Catalytic activity/Vol] 159 U/L Critically high 46-116 [facility] Comment on above: Performed By: #### C MP, URIC, PHOS, MG ####[facility] Uyuuxfnkap[address] [place] [address]Dr. Elba Anthony ALT [Catalytic activity/Vol] 33 U/L Normal 16-63 [facility] Comment on above: Performed By: #### C MP, URIC, PHOS, MG ####[facility] Ovhnawezcr[address] [place] [address]Dr. Elba Anthony Anion gap [Moles/Vol] 15.2 mmol/L Normal [facility] Comment on above: Performed By: #### C MP, URIC, PHOS, MG ####[facility] Ayokfrqrbd[address] [place] [address]Dr. Elba Anthony AST [Catalytic activity/Vol] 27 U/L Normal 15-37 [facility] Comment on above: Performed By: #### C MP, URIC, PHOS, MG ####[facility] Egjsvsvbma9[address] [place] [address]Dr. Elba Atnhony Bilirubin [Mass/Vol] 0.9 mg/dL Normal 0.2-1.0 [facility] Comment on above: Performed By: #### C MP, URIC, PHOS, MG ####[facility] Pramqxiups[address] [place] [address]Dr. Elba Anthony Calcium [Mass/Vol] 9.8 mg/dL Normal 8.5-10.1 [facility] Comment on above: Performed By: #### C MP, URIC, PHOS, MG ####[facility] Kgqllcmtes[address] [place] [address]Dr. Elba Anthony Chloride [Moles/Vol] 102 mmol/L Normal 98-107 [facility] Comment on above: Performed By: #### C MP, URIC, PHOS, MG ####[facility] [address]obrgsnwqp6[address] [place] [address]Dr. Elba Anthony CO2 [Moles/Vol] 30.5 mmol/L Normal 21.0-32.0 [facility] Comment on above: Performed By: #### C MP, URIC, PHOS, MG ####[facility] Xxqzjughwe[address] [place] [address]Dr. Elba Anthony Creatinine [Mass/Vol] 2.63 mg/dL Critically high 0.70-1.30 [facility] Comment on above: Performed By: #### C MP, URIC, PHOS, MG ####[facility] Uggrvzyceb[address] [place] [address]Dr. Elba Anthony EGFR-AF BENINESE 29 mL/min/1.73m2 Critically low >=60 [facility] Comment on above: Performed By: #### C MP, URIC, PHOS, MG ####[facility] [address]wrf4[address] [place] [address]Dr. Elba Anthony EGFR-NON AF BENINESE 24 mL/min/1.73m2 Critically low >=60 [facility] Comment on above: Performed By: #### C MP, URIC, PHOS, MG ####[facility] Mlepaqazxu[address] [place] [address]Dr. Elba Anthony Globulin (S) [Mass/Vol] 4.5 g/dL Normal [facility] Comment on above: Performed By: #### C MP, URIC, PHOS, MG ####[facility] Cppgnetwyo76[address] [place] [address]Dr. Elba Anthony Glucose [Mass/Vol] 122 mg/dL Critically high 74-106 [facility] Comment on above: Performed By: #### C MP, URIC, PHOS, MG ####[facility] Xkefbg[address]xg[address] [place], [place] [address]Dr. Elba Anthony Potassium [Moles/Vol] 4.7 mmol/L Normal 3.5-5.1 [facility] Comment on above: Performed By: #### C MP, URIC, PHOS, MG ####[facility] [address]qjzpyuwus[address] [place], [place] [address]Dr. Elba Anthony Protein [Mass/Vol] 8.5 g/dL Critically high 6.4-8.2 [facility] Comment on above: Performed By: #### C MP, URIC, PHOS, MG ####[facility] Zjbqim[address]pe[address] [place] [address]Dr. Elba Anthony Sodium [Moles/Vol] 143 mmol/L Normal 136-145 [facility] Comment on above: Performed By: #### C MP, URIC, PHOS, MG ####[facility] Yruuodfewy[address] [place] [address]Dr. Elba Anthony Urea nitrogen [Mass/Vol] 59.0 mg/dL Critically high 7.0-18.0 [facility] Comment on above: Performed By: #### C MP, URIC, PHOS, MG ####[facility] Uljuornxnp3603 [place] [address]Dr. Elba Anthony Urea nitrogen/Creatinine [Mass ratio] 22.4 mg/mg Normal [facility] Comment on above: Performed By: #### C MP, URIC, PHOS, MG ####[facility] Hzatcmengj175[address] [place], [place] [address]Dr. Elba Anthony UA RANDOMon 12-03-2022 Bilirubin Ql (U) Negative Normal NEGATIVE [facility] Comment on above: Performed By: #### U A ####[facility] Cuzdiypuxf[address] [place], [place] [address]Dr. Nereydasiobhan Anthony Clarity (U) CLEAR Normal CLEAR [facility] Comment on above: Performed By: #### U A ####[facility] Yxxgmcvezg39[address] [place], [place] [address]Dr. Elba Anthony Color (U) LT. YELLOW Normal YELLOW [facility] Comment on above: Performed By: #### U A ####[facility] Rtttadvvit[address] [place], [place] [address]Dr. Elba Anthony Glucose Ql (U) Negative Normal NEGATIVE [facility] Comment on above: Performed By: #### U A ####[facility] Rstgesvsor0116[address] [place], [place] [address]Dr. Elba Anthony Hemoglobin Ql (U) Negative Normal NEGATIVE [facility] Comment on above: Performed By: #### U A ####[facility] Jnslduitay5[address] [place], [place] [address]Dr. Elba Anthony Ketones Ql (U) Negative Normal NEGATIVE [facility] Comment on above: Performed By: #### U A ####[facility] Kbzowbtpbc9[address] [place], [place] [address]Dr. Elba Anthony LEUKOCYTES Negative Normal NEGATIVE [facility] Comment on above: Performed By: #### U A ####[facility] Gsiqqaiutx093[address] [place], [place] [address]Dr. Elba Anthony Nitrite Ql (U) Negative Normal NEGATIVE [facility] Comment on above: Performed By: #### U A ####[facility] Iswudkjoft[address] [place], [place] [address]Dr. Elba Anthony pH (U) 7.0 [pH] Normal 5-9 [facility] Comment on above: Performed By: #### U A ####[facility] [address]zlbla[address] [place] [address]Dr. Elba Anthony SPEC GRAVITY <=1.005 Abnormal 1.005-<=1.02 5 [facility] Comment on above: Performed By: #### U A ####[facility] [address]rqkhw[address] [place] [address]Dr. Elba Anthony UA PROTEIN TRACE Normal NEGATIVE/ TRACE [facility] Comment on above: Performed By: #### U A ####[facility] Gbvgbdvanv9254 [place] [address]Dr. Elba Anthony Urobilinogen Qn (U) 2.0 {Caden'U}/dL Abnormal 0.2 - 1. 0 [facility] Comment on above: Performed By: #### U A ####[facility] Bhrldipyeg[address] [place], [place] [address]Dr. Elba Anthony URIC ACID SERUMon 12-03-2022 Urate [Mass/Vol] 9.0 mg/dL Critically high 3.5-7.2 [facility] Comment on above: Performed By: #### C MP, URIC, PHOS, MG ####[facility] Sznxyjuzkh39[address] [place], [place] [address]Dr. Elba Anthony URINE T PROTEIN CREAT RATIOo n 12-03-2022 Protein (U) [Mass/Vol] 26.9 mg/dL Critically high <=12.0 [facility] Comment on above: Performed By: #### U RTPCR ####[facility] Onnaleyjza3734[address] [place], [place] [address]Dr. Elba Anthony UR PROT CREAT RAT 0.33 Normal [facility] Comment on above: Performed By: #### U RTPCR ####[facility] Laqlzrspkq[address] [place], [place] [address]Dr. Elba Anthony URINE CREAT 82.74 mg/dL Normal 20.00-300.00 [facility] Comment on above: Performed By: #### U RTPCR ####[facility] Ndjhhhocnq[address] [place], [place] [address]Dr. Elba Anthony VITAMIN D 25 OHon 12-03-2022 VIT D 25-OH 14.7 ng/mL Normal [facility] Comment on above: Performed By: #### V ITAD ####[facility] [address] [place] [address]Dr. Elba Anthony VIT D RANGES SEE BELOW Normal [facility] Comment on above: Result Comment: <20 ng/mL Vit D deficient 20 - <30 ng/mL Vit D insufficient 30 - 100 ng/mL Vit D sufficient >100 ng/mL Potential Toxicity Performed By: #### V ITAD ####[facility] [address] [place] [id number]. Elba Anthony US KIDNEYSon 11-27-2022 US KIDNEYS Normal [facility] PROF CHEM 8 (BAS METB)on Anion gap [Moles/Vol] 11.1 mmol/L Normal [facility] Comment on above: Performed By: #### B MP ####[facility] Tybcktwpfu[address] [place], [place] [address]Dr. Elba Anthony Calcium [Mass/Vol] 9.0 mg/dL Normal 8.5-10.1 [facility] Comment on above: Performed By: #### B MP ####[facility] Aeebsejpcm[address] [place], [place] [address]Dr. Elba Anthony Chloride [Moles/Vol] 99 mmol/L Normal 98-107 [facility] Comment on above: Performed By: #### B MP ####[facility] Vtwqmukxve8397[address] [place], [place] [address]Dr. Elba Anthony CO2 [Moles/Vol] 30.3 mmol/L Normal 21.0-32.0 [facility] Comment on above: Performed By: #### B MP ####[facility] Bzxvypeger05[address] [place], [place] [address]Dr. Elba Anthony Creatinine [Mass/Vol] 2.43 mg/dL Critically high 0.70-1.30 [facility] Comment on above: Performed By: #### B MP ####[facility] Djtxoulybj7101[address] [place], [place] [address]Dr. Elba Anthony EGFR-AF BENINESE 32 mL/min/1.73m2 Critically low >=60 [facility] Comment on above: Performed By: #### B MP ####[facility] Ct[address]jnrlgg[address] [place] [address]Dr. Elba Anthony EGFR-NON AF BENINESE 27 mL/min/1.73m2 Critically low >=60 [facility] Comment on above: Performed By: #### B MP ####[facility] Qbdouwfbtz5309 [place] [address]Dr. Elba Anthony Glucose [Mass/Vol] 142 mg/dL Critically high 74-106 [facility] Comment on above: Performed By: #### B MP ####[facility] Dxumqusbut[address] [place], [place] [address]Dr. Elba Anthony Potassium [Moles/Vol] 4.4 mmol/L Normal 3.5-5.1 [facility] Comment on above: Performed By: #### B MP ####[facility] Fyrqzrqrld4634[address] [place], [place] [address]Dr. Elba Anthony Sodium [Moles/Vol] 136 mmol/L Normal 136-145 [facility] Comment on above: Performed By: #### B MP ####[facility] Qkqidrtvdw5875[address] [place], [place] [address]Dr. Elba Anthony Urea nitrogen [Mass/Vol] 60.0 mg/dL Critically high 7.0-18.0 [facility] Comment on above: Performed By: #### B MP ####[facility] Gvyecmycml4397[address] [place], [place] [address]Dr. Elba Anthony Urea nitrogen/Creatinine [Mass ratio] 24.7 mg/mg Normal [facility] Comment on above: Performed By: #### B MP ####[facility] Sgtssrkmry9[address] [place], [place] [address]Dr. Elba Anthony CBC AUTO DIFFon 07-11-2022 BASO # 0.1 103/ul Normal 0.0-0.1 [facility] Comment on above: Performed By: #### C BC ####[facility] Lhlnrdrjzc[address] [place], [place] [address]Dr. Elba Anthony Basophils/100 WBC (Bld) 0.8 % Normal 0.2-2.0 [facility] Comment on above: Performed By: #### C BC ####[facility] Chicjsndhb694[address] [place], [place] [address]Dr. Elba Anthony EO # 0.9 103/ul Critically high 0.0-0.7 [facility] Comment on above: Performed By: #### C BC ####[facility] Oomkcbcitz[address]234[address] [place], [place] [address]Dr. Elba Anthony Eosinophils/100 WBC (Bld) 13.7 % Critically high 0.9-7.0 [facility] Comment on above: Performed By: #### C BC ####[facility] Husymtktzy9[address] [place], [place] [address]Dr. Elba Anthony Erythrocyte distribution width (RBC) [Ratio] 20.8 % Critically high 11.0-15.0 [facility] Comment on above: Performed By: #### C BC ####[facility] Kyumvjsiem42[address] [place], [place] [address]Dr. Elba Anthony Hematocrit (Bld) [Volume fraction] 35.3 % Critically low 42.0-54.0 [facility] Comment on above: Performed By: #### C BC ####[facility] Cheervtmxf[address] [place], [place] [address]Dr. Elba Anthony Hemoglobin (Bld) [Mass/Vol] 11.5 g/dL Critically low 14.0-18.0 [facility] Comment on above: Performed By: #### C BC ####[facility] Fovdhjlecp[address] [place], [place] [address]Dr. Elba Anthony IG # 0.04 10e3/ul Critically high 0.00-0.03 [facility] Comment on above: Performed By: #### C BC ####[facility] Z[address]huhggfki[address] [place], [place] [address]Dr. Elba Anthony IG % 0.6 % Critically high 0.0-0.5 [facility] Comment on above: Performed By: #### C BC ####[facility] Hiwqpkkmno[address] [place], [place] [address]Dr. Elba Raj LYMPH # 1.1 103/ul Critically low 1.2-3.8 [facility] Comment on above: Performed By: #### C BC ####[facility] [address]kgvpezvy[address] [place] [id number]. Elba Raj Lymphocytes/100 WBC (Bld) 17.2 % Critically low 20.5-60.0 [facility] Comment on above: Performed By: #### C BC ####[facility] We[address]tdlm[address] [place] [address]Dr. Nereydasiobhan Anthony MANUAL DIFF REQ NO Normal [facility] Comment on above: Performed By: #### C BC ####[facility] Sqpqvvpude232[address] [place] [address]Dr. Elba Raj MCH (RBC) [Entitic mass] 27.9 pg Normal 25.9-34.0 [facility] Comment on above: Performed By: #### C BC ####[facility] Rjetamnube18[address] [place] [address]Dr. Elba Raj MCHC (RBC) [Mass/Vol] 32.6 g/dL Normal 29.9-35.2 [facility] Comment on above: Performed By: #### C BC ####[facility] Htwqsnxcfx8[address] [place] [address]Dr. Elba Anthony MCV (RBC) [Entitic vol] 85.7 fL Normal 80.0-94.0 [facility] Comment on above: Performed By: #### C BC ####[facility] Tcchyfaaxn13[address] [place] [address]Dr. Elba Anthony MONO # 0.8 103/ul Normal 0.3-0.8 [facility] Comment on above: Performed By: #### C BC ####[facility] Hxjbdptaqy9659 [place] [address]Dr. Nereydasiobhan Anthony Monocytes/100 WBC (Bld) 13.0 % Critically high 1.7-12.0 [facility] Comment on above: Performed By: #### C BC ####[facility] [address]zdqmklvjc4[address] [place] [address]Dr. Elba Anthony NEUT # 3.4 103/ul Normal 1.4-6.5 [facility] Comment on above: Performed By: #### C BC ####[facility] Cxlomxzmom9894 [place] [address]Dr. Elba Anthony Neutrophils/100 WBC (Bld) 54.7 % Normal 43.0-75.0 [facility] Comment on above: Performed By: #### C BC ####[facility] Zkvsstedad0130 [place] [address]Dr. Elba Anthony Platelet mean volume (Bld) [Entitic vol] 9.5 fL Normal 9.5-13.5 [facility] Comment on above: Performed By: #### C BC ####[facility] Fttmwcqjel6807 [place] [address]Dr. Elba Anthony PLT 206 103/ul Normal 150-450 [facility] Comment on above: Performed By: #### C BC ####[facility] Lymbrkeavm[address] [place], [place] [address]Dr. Elba Raj RBC 4.12 106/ul Critically low 4.70-6.10 [facility] Comment on above: Performed By: #### C BC ####[facility] [address]zqpxirr[address] [place], [place] [address]Dr. Elba Anthony WBC 6.2 103/ul Normal 4.0-11.0 [facility] Comment on above: Performed By: #### C BC ####[facility] Xfreacqinm[address] [place], [place] [address]DrLatoya Nereydasiobhan Anthony PROF CHEM 8 (BAS METB)on Anion gap [Moles/Vol] 10.9 mmol/L Normal [facility] Comment on above: Performed By: #### B MP ####[facility] Achabkyuqi4[address] [place], [place] [address]DrLatoya Elba Raj Calcium [Mass/Vol] 8.9 mg/dL Normal 8.5-10.1 [facility] Comment on above: Performed By: #### B MP ####[facility] Addemwybfb[address] [place] [address]Dr. Nereydasiobhan Anthony Chloride [Moles/Vol] 103 mmol/L Normal 98-107 [facility] Comment on above: Performed By: #### B MP ####[facility] Smrgrtdzvx6797 [place] [address]Dr. Elba Anthony CO2 [Moles/Vol] 31.0 mmol/L Normal 21.0-32.0 [facility] Comment on above: Performed By: #### B MP ####[facility] Ckaitxhblk[address] [place], [place] [address]Dr. Elba Anthony Creatinine [Mass/Vol] 2.18 mg/dL Critically high 0.70-1.30 [facility] Comment on above: Performed By: #### B MP ####[facility] [address]vdlumqprt[address] [place], [place] [address]Dr. Elba Anthony EGFR-AF BENINESE 36 mL/min/1.73m2 Critically low >=60 [facility] Comment on above: Performed By: #### B MP ####[facility] Ivklvztffm[address] [place], [place] [address]Dr. Elba Raj EGFR-NON AF BENINESE 30 mL/min/1.73m2 Critically low >=60 [facility] Comment on above: Performed By: #### B MP ####[facility] Mplytzlpbp56[address] [place], [place] [address]Dr. Elba Anthony Glucose [Mass/Vol] 99 mg/dL Normal 74-106 [facility] Comment on above: Performed By: #### B MP ####[facility] Jatuecltbb224[address] [place], [place] [address]Dr. Nereydasiobhan Raj Potassium [Moles/Vol] 3.9 mmol/L Normal 3.5-5.1 [facility] Comment on above: Performed By: #### B MP ####[facility] Befjpxaehm[address] [place], [place] [address]Dr. Elba Anthony Sodium [Moles/Vol] 141 mmol/L Normal 136-145 [facility] Comment on above: Performed By: #### B MP ####[facility] Ufbqnvdded3[address] [place], [place] [address]Dr. Elba Anthony Urea nitrogen [Mass/Vol] 40.0 mg/dL Critically high 7.0-18.0 [facility] Comment on above: Performed By: #### B MP ####[facility] [address]inrkwk[address] [place] [address]Dr. Elba Anthony Urea nitrogen/Creatinine [Mass ratio] 18.3 mg/mg Normal [facility] Comment on above: Performed By: #### B MP ####[facility] Odacgzvwfl39[address] [place] [address]Dr. Elba Anthony XR CHEST 2 Von 07-11-2022 XR CHEST 2 V Normal [facility] BNPon 07-10-2022 Natriuretic peptide B (Bld) [Mass/Vol] 2542.0 pg/mL Critically high <=900.0 [facility] Comment on above: Performed By: #### H STROPN, BNP, CMP ####[facility] [address]poqtqohen[address] [place], [place] [address]Dr. Elba Anthony CARDIAC FADY 3-6on 2 CK [Catalytic activity/Vol] 40 U/L Normal 39-308 [facility] Comment on above: Performed By: #### C MREP ####[facility] [address] [place], [place] [address]Dr. Elba Anthony CK.MB [Mass/Vol] 0.92 ng/mL Normal <=3.60 [facility] Comment on above: Performed By: #### C MREP ####[facility] Ddvxtdrrno[address] [place], [place] [address]Dr. Elba Anthony HSTROP 49.6 pg/mL Normal 4.0-76.1 The [facility] Comment on above: Result Comment: CUT- OFF POINTS HAVE BEEN ESTABLISHED BASED ON THE FOURTH UNIVERSAL DEFINITIONS OF MYOCARDIALINFARCTION. THE UPPER REFERENCE LIMIT (URL) OF TROPONIN, DEFINED THE 99TH PERCENTILE OFcTnI DISTRIBUTION IN A REFERENCE POPULATION, HAS BEEN CONFIRMED THE DECISION THRESHOLDFOR ND DIAGNOSIS. Performed By: #### C MREP ####[facility] Djgtijixcy[address] [place], [place] [address]Dr. Elba Raj CK [Catalytic activity/Vol] 39 U/L Normal 39-308 [facility] Comment on above: Performed By: #### C MREP ####[facility] [address] [place] [address]Dr. Nereydasiobhan Anthony CK.MB [Mass/Vol] 0.76 ng/mL Normal <=3.60 The [facility] Comment on above: Performed By: #### C MREP ####[facility] Uya[address]ywax[address] [place] [address]Dr. Elba Raj HSTROP 47.3 pg/mL Normal 4.0-76.1 [facility] Comment on above: Result Comment: CUT- OFF POINTS HAVE BEEN ESTABLISHED BASED ON THE FOURTH UNIVERSAL DEFINITIONS OF MYOCARDIALINFARCTION. THE UPPER REFERENCE LIMIT (URL) OF TROPONIN, DEFINED THE 99TH PERCENTILE OFcTnI DISTRIBUTION IN A REFERENCE POPULATION, HAS BEEN CONFIRMED THE DECISION THRESHOLDFOR ND DIAGNOSIS. Performed By: #### C MREP ####[facility] Mbbecaabee[address] [place], [place] [address]Dr. Elba Anthony CBC AUTO DIFFon 07-10-2022 BASO # 0.1 103/ul Normal 0.0-0.1 [facility] Comment on above: Performed By: #### C BC ####[facility] Jvwasrsm[address] [place], [place] [address]Dr. Elba Anthony Basophils/100 WBC (Bld) 1.1 % Normal 0.2-2.0 The [facility] Comment on above: Performed By: #### C BC ####[facility] Wmyjrednfs2[address] [place], [place] [address]Dr. Elba Anthony EO # 0.6 103/ul Normal 0.0-0.7 [facility] Comment on above: Performed By: #### C BC ####[facility] Im[address]wdaiqz[address] [place], [place] [address]Dr. Elba Anthony Eosinophils/100 WBC (Bld) 8.9 % Critically high 0.9-7.0 The [facility] Comment on above: Performed By: #### C BC ####[facility] Eaniznnesd7439[address] [place], [place] [address]Dr. Elba Anthony Erythrocyte distribution width (RBC) [Ratio] 21.1 % Critically high 11.0-15.0 The [facility] Comment on above: Performed By: #### C BC ####[facility] Rjxxjadoew[address] [place] [address]Dr. Elba Anthony Hematocrit (Bld) [Volume fraction] 39.1 % Critically low 42.0-54.0 [facility] Comment on above: Performed By: #### C BC ####[facility] Lmvlbacbzh9[address] [place], [place] [address]DrLatoya Anthony Hemoglobin (Bld) [Mass/Vol] 12.6 g/dL Critically low 14.0-18.0 [facility] Comment on above: Performed By: #### C BC ####[facility] Msupohznqr5[address] [place], [place] [address]DrLatoya Anthony IG # 0.04 10e3/ul Critically high 0.00-0.03 [facility] Comment on above: Performed By: #### C BC ####[facility] Pe[address]ujfzjqw[address] [place], [place] [address]DrLatoya Anthony IG % 0.6 % Critically high 0.0-0.5 [facility] Comment on above: Performed By: #### C BC ####[facility] X[address]qev[address]fwm[address] [place], [place] [address]DrLatoya Anthony LYMPH # 0.9 103/ul Critically low 1.2-3.8 [facility] Comment on above: Performed By: #### C BC ####[facility] Xonywxunbj35[address] [place], [place] [address]DrLatoya Anthony Lymphocytes/100 WBC (Bld) 13.8 % Critically low 20.5-60.0 [facility] Comment on above: Performed By: #### C BC ####[facility] Arnqqgbyfo609[address] [place], [place] [address]DrLatoya Anthony MANUAL DIFF REQ NO Normal [facility] Comment on above: Performed By: #### C BC ####[facility] Vmjrftpkjs[address] [place], [place] [address]DrLatoya Anthony MCH (RBC) [Entitic mass] 27.5 pg Normal 25.9-34.0 [facility] Comment on above: Performed By: #### C BC ####[facility] Fhkntyhboo[address] [place] [address]Dr. Elba Anthony MCHC (RBC) [Mass/Vol] 32.2 g/dL Normal 29.9-35.2 [facility] Comment on above: Performed By: #### C BC ####[facility] Bsqlbapsnb[address] [place], [place] [address]Dr. Elba Raj MCV (RBC) [Entitic vol] 85.2 fL Normal 80.0-94.0 [facility] Comment on above: Performed By: #### C BC ####[facility] Gqmqqivolz[address] [place], [place] [address]Dr. Elba Anthony MONO # 0.9 103/ul Critically high 0.3-0.8 [facility] Comment on above: Performed By: #### C BC ####[facility] Sxiekjvsxa[address] [place], [place] [address]Dr. Nereydasiobhan Anthony Monocytes/100 WBC (Bld) 14.0 % Critically high 1.7-12.0 [facility] Comment on above: Performed By: #### C BC ####[facility] Padpcmgbhl6[address] [place], [place] [address]Dr. Elba Anthony NEUT # 4.1 103/ul Normal 1.4-6.5 [facility] Comment on above: Performed By: #### C BC ####[facility] Gqezjoosva[address] [place], [place] [address]Dr. Elba Anthony Neutrophils/100 WBC (Bld) 61.6 % Normal 43.0-75.0 [facility] Comment on above: Performed By: #### C BC ####[facility] Gxiquwfzin8347[address] [place], [place] [address]Dr. Nereydasiobhan Raj Platelet mean volume (Bld) [Entitic vol] 10.1 fL Normal 9.5-13.5 [facility] Comment on above: Performed By: #### C BC ####[facility] [address]ox[address]pm[address] [place], [place] [address]Up. Elba Anthony PLT 223 103/ul Normal 150-450 [facility] Comment on above: Performed By: #### C BC ####[facility] Wqs[address]rv[address] [place] [id number]. Elba Anthony RBC 4.59 106/ul Critically low 4.70-6.10 [facility] Comment on above: Performed By: #### C BC ####[facility] Ss[address]jxtw[address] [place], [place] [address]Ne. Elba Anthony WBC 6.7 103/ul Normal 4.0-11.0 [facility] Comment on above: Performed By: #### C BC ####[facility] Zmjzdubfwg39[address] [place] [address]Dr. Elba Anthony Covid-19 PCR (CVDTB)on SARS-CoV-2 (COVID-19) RNA ELIZABETH+probe Ql (Unsp spec) Not detected Normal NOT DETECTED [facility] Comment on above: Result Comment: When [...] for this test is supported by the [place] of Health and Human Service's declaration that [...] used). Performed By: #### C VDTBH ####[facility] Uvgvtzrgqa[address] [place], [place] [address]Ml. Elba Anthony ER URINE PROFILEon 2 Bilirubin Ql (U) Negative Normal NEGATIVE [facility] Comment on above: Performed By: #### E RUR ####[facility] Exasbhsuvq[address] [place], [place] [address]Dr. Elba Anthony Clarity (U) CLEAR Normal CLEAR [facility] Comment on above: Performed By: #### E RUR ####[facility] Xllrljpnfe[address] [place], [place] [address]Dr. Elba Anthony Color (U) LT. YELLOW Normal YELLOW [facility] Comment on above: Performed By: #### E RUR ####[facility] [address]ovzqplcp[address] [place], [place] [address]Dr. Elba Anthony ERUAHD A micrscopic examina tion will be performed if indicated. Normal The [facility] Comment on above: Performed By: #### E RUR ####[facility] Gjgxaufygi0[address] [place], [place] [address]Dr. Elba Anthony Glucose Ql (U) Negative Normal NEGATIVE [facility] Comment on above: Performed By: #### E RUR ####[facility] Rkevcmtpah[address] [place], [place] [address]Dr. Elba Anthony Hemoglobin Ql (U) Negative Normal NEGATIVE The [facility] Comment on above: Performed By: #### E RUR ####[facility] Qccjeagycl[address] [place], [place] [address]Dr. Elba Anthony Ketones Ql (U) Negative Normal NEGATIVE [facility] Comment on above: Performed By: #### E RUR ####[facility] Noxdrbksjn8[address] [place], [place] [address]Dr. Elba Anthony LEUKOCYTES Negative Normal NEGATIVE The [facility] Comment on above: Performed By: #### E RUR ####[facility] Pntnkgnied[address] [place], [place] [address]Dr. Nereydasiobhan Anthony Nitrite Ql (U) Negative Normal NEGATIVE The [facility] Comment on above: Performed By: #### E RUR ####[facility] Pwdzwcirad[address] [place], [place] [address]Dr. Nereydasiobhan Anthony pH (U) 7.0 [pH] Normal 5-9 [facility] Comment on above: Performed By: #### E RUR ####[facility] [address]xvqc[address] [place] [address]Dr. Elba Anthony SPEC GRAVITY 1.010 Normal 1.005-<=1.02 5 [facility] Comment on above: Performed By: #### E RUR ####[facility] X[address]msveyf[address] [place] [address]Dr. Elba Anthony UA PROTEIN Negative Normal NEGATIVE/ TRACE [facility] Comment on above: Performed By: #### E RUR ####[facility] Mutnhpqlyq[address] [place] [address]Dr. Elba Anthony UR MICRO IND NOT INDICATED Normal [facility] Comment on above: Performed By: #### E RUR ####[facility] Sh[address]zwiqw[address] [place], [place] [address]Dr. Elba Anthony Urobilinogen Qn (U) 0.2 {Caden'U}/dL Normal 0.2 - 1. 0 [facility] Comment on above: Performed By: #### E RUR ####[facility] Qgqmivytfu[address] [place], [place] [address]Dr. Elba Anthony PROF 14(COMP METB)on 022 Albumin [Mass/Vol] 3.3 g/dL Critically low 3.4-5.0 [facility] Comment on above: Performed By: #### H STROPN, BNP, CMP ####[facility] Zoumesnhie[address] [place], [place] [address]Dr. Elba Anthony Albumin/Globulin [Mass ratio] 0.8 {ratio} Normal [facility] Comment on above: Performed By: #### H STROPN, BNP, CMP ####[facility] Lyt[address]oscnp[address] [place] [address]Dr. Elba Anthony ALP [Catalytic activity/Vol] 114 U/L Normal 46-116 [facility] Comment on above: Performed By: #### H STROPN, BNP, CMP ####[facility] Tzynflwzzb40[address] [place] [address]Dr. Elba Anthony ALT [Catalytic activity/Vol] 23 U/L Normal 16-63 [facility] Comment on above: Performed By: #### H STROPN, BNP, CMP ####[facility] Idnvrnzgmz[address] [place] [address]Dr. Elba Anthony Anion gap [Moles/Vol] 9.5 mmol/L Normal [facility] Comment on above: Performed By: #### H STROPN, BNP, CMP ####[facility] Xaotkjipku[address] [place] [address]Dr. Elba Anthony AST [Catalytic activity/Vol] 32 U/L Normal 15-37 [facility] Comment on above: Performed By: #### H STROPN, BNP, CMP ####[facility] Tflskwxgwl5[address] [place] [address]Dr. Elba Anthony Bilirubin [Mass/Vol] 0.7 mg/dL Normal 0.2-1.0 [facility] Comment on above: Performed By: #### H STROPN, BNP, CMP ####[facility] U[address]wjxrvf[address] [place], [place] [address]Dr. Elba Anthony Calcium [Mass/Vol] 9.1 mg/dL Normal 8.5-10.1 [facility] Comment on above: Performed By: #### H STROPN, BNP, CMP ####[facility] Zzdbnsdmhw[address] [place], [place] [address]Dr. Elba Anthony Chloride [Moles/Vol] 99 mmol/L Normal 98-107 [facility] Comment on above: Performed By: #### H STROPN, BNP, CMP ####[facility] Rtxcvbwczn[address] [place], [place] [address]Dr. Elba Anthony CO2 [Moles/Vol] 33.2 mmol/L Critically high 21.0-32.0 [facility] Comment on above: Performed By: #### H STROPN, BNP, CMP ####[facility] Loeckugdmu[address] [place], [place] [address]Dr. Elba Anthony Creatinine [Mass/Vol] 2.31 mg/dL Critically high 0.70-1.30 [facility] Comment on above: Performed By: #### H STROPN, BNP, CMP ####[facility] Wrqeycigif[address] [place], [place] [address]Dr. Elba Anthony EGFR-AF BENINESE 34 mL/min/1.73m2 Critically low >=60 [facility] Comment on above: Performed By: #### H STROPN, BNP, CMP ####[facility] [address]joi[address] [place] [address]Dr. Elba Anthony EGFR-NON AF BENINESE 28 mL/min/1.73m2 Critically low >=60 [facility] Comment on above: Performed By: #### H STROPN, BNP, CMP ####[facility] Mpt[address]balne[address] [place] [address]Dr. Elba Anthony Globulin (S) [Mass/Vol] 4.3 g/dL Normal [facility] Comment on above: Performed By: #### H STROPN, BNP, CMP ####[facility] Uijeqguwys[address] [place] [address]Dr. Elba Anthony Glucose [Mass/Vol] 98 mg/dL Normal 74-106 [facility] Comment on above: Performed By: #### H STROPN, BNP, CMP ####[facility] Hgphecmvim[address] [place], [place] [address]Dr. Elba Anthony Potassium [Moles/Vol] 4.7 mmol/L Normal 3.5-5.1 [facility] Comment on above: Performed By: #### H STROPN, BNP, CMP ####[facility] Jlxyiwpjzp[address] [place] [address]Dr. Elba Anthony Protein [Mass/Vol] 7.6 g/dL Normal 6.4-8.2 [facility] Comment on above: Performed By: #### H STROPN, BNP, CMP ####[facility] Mhfuqivaqe[address] [place] [address]Dr. Elba Anthony Sodium [Moles/Vol] 137 mmol/L Normal 136-145 [facility] Comment on above: Performed By: #### H STROPN, BNP, CMP ####[facility] Xjhrvqyxqk[address] [place] [address]Dr. Elba Anthony Urea nitrogen [Mass/Vol] 47.0 mg/dL Critically high 7.0-18.0 [facility] Comment on above: Performed By: #### H STROPN, BNP, CMP ####[facility] Xwdlcqhxwp4[address] [place] [address]Dr. Elba Anthony Urea nitrogen/Creatinine [Mass ratio] 20.3 mg/mg Normal [facility] Comment on above: Performed By: #### H STROPN, BNP, CMP ####[facility] [address]dsq[address]wy[address] [place] [address]Dr. Elba Anthony PROTIMEon 07-10-2022 INR Coag (PPP) [Relative time] 1.07 {INR} Normal [facility] Comment on above: Performed By: #### P T, PTT ####[facility] [address]qztv[address] [place] [address]Dr. Elba Anthony INR GUIDELINES SEE BELOW Normal [facility] Comment on above: Result Comment: FUAD RED INR: 2.0 - 3.0 CONDITIONS NOT LISTED BELOW 2.5 - 3.5 FOR PROSTHETIC HEART VALVE REPLACEMENT 2.5 - 3.5 RECURRENT THROMBOSIS Performed By: #### P T, PTT ####[facility] [address]le[address] [place] [address]Dr. Elba Anthony PT Coag (PPP) [Time] 11.5 s Normal 9.0-11.6 [facility] Comment on above: Performed By: #### P T, PTT ####[facility] D[address]xqnxrvxs[address] [place] [address]Dr. Elba Anthony PTTon 07-10-2022 aPTT Coag (Bld) [Time] 34.7 s Normal 22.3-36.2 [facility] Comment on above: Performed By: #### P T, PTT ####[facility] Ozkykuidrk[address] [place], [place] [address]Dr. Elba Raj TROPONIN, HIGH SENSITIVITYon 07-10-2022 HSTROP 45.2 pg/mL Normal 4.0-76.1 [facility] Comment on above: Result Comment: CUT- OFF POINTS HAVE BEEN ESTABLISHED BASED ON THE FOURTH UNIVERSAL DEFINITIONS OF MYOCARDIALINFARCTION. THE UPPER REFERENCE LIMIT (URL) OF TROPONIN, DEFINED THE 99TH PERCENTILE OFcTnI DISTRIBUTION IN A REFERENCE POPULATION, HAS BEEN CONFIRMED THE DECISION THRESHOLDFOR ND DIAGNOSIS. Performed By: #### H STROPN, BNP, CMP ####[facility] [address] [place], [place] [address]Nt. Elba Anthony XR CHEST 1 Von 07-10-2022 XR CHEST 1 V Normal [facility] US venous duplex LE BIon US venous duplex LE BI [facility] [address] Ultrasound Report Signed Patient: Man Patel MR#: [id number] : 1950 Acct:[id number] Age/Sex: 72 / M ADM Date: 06/27/22 Loc: ER Room: Type: [facility] ER Attending Dr: Ordering Provider: [...] Balwinder Watson MD06/28/2022 8:49 AM Dictation [facility] Tech: Mayra Henry Transcribed By: [facility] 06/28/22848 Dictated By: Balwinder Watson MD 06/28/22848 Signed By: 06/28/22848 [facility] Activated partial thrombopla stin time (aPTT) in platelet poor plasma by coagulation aOrdered By: Melva Owusu on 06-27-2022 aPTT Coag (PPP) [Time] 36.4 s 25.1-36.5 [facility] Albumin [Mass/volume] in Ser um or PlasmaOrdered By: Melva Owusu on 06-27-2022 Albumin [Mass/Vol] 3.1 g/dL 3.2-5.[address] [facility] B-Type Natriuretic Peptideon 06-27-2022 Natriuretic peptide B (Bld) [Mass/Vol] 367.0 pg/mL High 5-100 [facility] Comment on above: Result Comment: PERF ORMED BY: [place] [address] GARCIA M.D. Performed By: #### S OFIANEG, COVID-19 JOSE #### [facility] [address] [place] [address] Basophils Auto (Bld) [#/Vol] Ordered By: [facility] on 06-27-2022 Basophils (Bld) [#/Vol] 0.0 10*3/uL 0.0-0.2 [facility] Basophils/100 WBC Auto (Bld) Ordered By: [facility] on 06-27-2022 Basophils/100 WBC (Bld) 0.6 % . [facility] Bilirubin Test strip Ql (U)O rdered By: Melva Owusu on 06-27-2022 Bilirubin Ql (U) Negative Negative [facility] Blood Cultureon 06-27-2022 Bacteria identified Cx Nom (Bld) NO GROWTH 5 DAYS PERFORMED BY: [place] [address]ARCIA M.D. [facility] Comment on above: Performed By: #### C UBLD, LACTIC #### [facility] [address] [place] [address] Bacteria identified Cx Nom (Bld) NO GROWTH 5 DAYS PERFORMED BY: [place] [address] GARCIA M.D. [facility] Comment on above: Performed By: #### C UBLD, LACTIC #### [facility] [address] [place] [address] COVID-19 Antigenon 2 COVID-19 Antigen Healthcare Worker?: [...] developed and its performance characteristic determined by [employer] and validated at [facility]. This test has not been [...] for SARS Antigen by MORIAH PERFORMED BY: [facility] [address] [place] [address] GARCIA M.D. [facility] Comment on above: Performed By: #### S JORGE COVID-19 JOSE #### [facility] [address] COVID-19 SOFIAOrdered By: Fito Chavarria on 06-27-2022 SARS-CoV+SARS-CoV-2 (COVID-19) Ag IA.rapid Ql (Resp) Negative Negative [facility] Comment on above: This is a duplicate Jose SARS Antigen (MORIAH) result to be used for statistical tracking purpose only. Coagulation Profileon 2021 aPTT Coag (Bld) [Time] 36.4 s Normal 25.1-36.5 [facility] Comment on above: Result Comment: PERF ORMED BY: [place] [address] GARCIA M.D. Performed By: #### S OFCATALINA, COVID-19 JOSE #### [facility] [address] [place] [address] INR Coag (PPP) [Relative time] 1.5 {INR} Normal [facility] Comment on above: Result Comment: [...] 3 - 4.5 Performed By: #### S OFALDOEG COVID-19 JOSE #### [facility] [address] [place] [address] PT Coag (PPP) [Time] 17.3 s High 9.0-12.9 [facility] Comment on above: Performed By: #### S OFIANEG, COVID-19 JOSE #### [facility] [address] [place] [address] Color Auto (U)Ordered By: Lisa Owusu on 06-27-2022 Color (U) Yellow Yellow [facility] Complete Blood Count Auto Di ffon 06-27-2022 Basophils (Bld) [#/Vol] 0.0 10*3/uL Normal 0.0-0.2 [facility] Comment on above: Result Comment: PERF ORMED BY: [place] [address] GARCIA M.D. Performed By: #### B CITY ENGINEER, CBC, PP, CMP #### [address] Basophils/100 WBC (Bld) 0.6 % Normal . [facility] Comment on above: Performed By: #### B CITY ENGINEER, CBC, PP, CMP #### [address] Eosinophils (Bld) [#/Vol] 0.6 10*3/uL High 0.0-0.45 [facility] Comment on above: Performed By: #### B CITY ENGINEER, CBC, PP, CMP #### [address] Eosinophils/100 WBC (Bld) 9.4 % Normal . [facility] Comment on above: Performed By: #### B CITY ENGINEER, CBC, PP, CMP #### [address] Erythrocyte distribution width (RBC) [Ratio] 24.6 % High 12.0-14.8 [facility] Comment on above: Performed By: #### B CITY ENGINEER, CBC, PP, CMP #### [address] Hematocrit (Bld) [Volume fraction] 39.7 % Normal 38.8-50.0 [facility] Comment on above: Performed By: #### B CITY ENGINEER, CBC, PP, CMP #### [address] Hemoglobin (Bld) [Mass/Vol] 12.9 g/dL Low 13.0-17.0 [facility] Comment on above: Performed By: #### B CITY ENGINEER, CBC, PP, CMP #### [address] Lymphocytes (Bld) [#/Vol] 0.6 10*3/uL Low 1.00-4.8 [facility] Comment on above: Performed By: #### B CITY ENGINEER, CBC, PP, CMP #### [address] [place] [address] [place] Lymphocytes/100 WBC (Bld) 9.3 % Normal . [facility] Comment on above: Performed By: #### B CITY ENGINEER, CBC, PP, CMP #### [address] MCH (RBC) [Entitic mass] 26.8 pg Low 27.5-35.2 [facility] Comment on above: Performed By: #### B CITY ENGINEER, CBC, PP, CMP #### [address] MCV (RBC) [Entitic vol] 82.7 fL Low 83.5-101 [facility] Comment on above: Performed By: #### B CITY ENGINEER, CBC, PP, CMP #### [address] Mean Corpuscular HGB Conc 32.4 g/dL Low 32.5-35.6 [facility] Comment on above: Performed By: #### B CITY ENGINEER, CBC, PP, CMP #### [address] Monocytes (Bld) [#/Vol] 0.6 10*3/uL Normal 0.0-0.8 [facility] Comment on above: Performed By: #### B CITY ENGINEER, CBC, PP, CMP #### [address] Monocytes/100 WBC (Bld) 9.4 % Normal . [facility] Comment on above: Performed By: #### B CITY ENGINEER, CBC, PP, CMP #### [address] Neutrophils (Bld) [#/Vol] 4.7 10*3/uL Normal 1.8-7.7 [facility] Comment on above: Performed By: #### B CITY ENGINEER, CBC, PP, CMP #### [address] Neutrophils/100 WBC (Bld) 71.3 % Normal . [facility] Comment on above: Performed By: #### B CITY ENGINEER, CBC, PP, CMP #### [address] Nucleated RBC/100 WBC (Bld) [Ratio] 0.0 % Normal 0-0.5 [facility] Comment on above: Performed By: #### B CITY ENGINEER, CBC, PP, CMP #### [address] Platelet mean volume (Bld) [Entitic vol] 8.0 fL Normal 6.6-10.1 [facility] Comment on above: Performed By: #### B CITY ENGINEER, CBC, PP, CMP #### [address] Platelets (Bld) [#/Vol] 163 10*3/uL Normal 150-450 [facility] Comment on above: Performed By: #### B CITY ENGINEER, CBC, PP, CMP #### [address] RBC (Bld) [#/Vol] 4.80 10*6/uL Normal 3.90-5.60 [facility] Comment on above: Performed By: #### B CITY ENGINEER, CBC, PP, CMP #### [address] WBC (Bld) [#/Vol] 6.5 10*3/uL Normal 4.5-11.[address] [facility] Comment on above: Performed By: #### B CITY ENGINEER, CBC, PP, CMP #### [address] Comprehensive Metabolic Pane jeff 06-27-2022 Albumin [Mass/Vol] 3.1 g/dL Low 3.2-5.[address] [facility] Comment on above: Performed By: #### B CITY ENGINEER, CBC, PP, CMP #### [address] Albumin/Globulin [Mass ratio] 0.8 {ratio} Normal [facility] Comment on above: Performed By: #### B CITY ENGINEER, CBC, PP, CMP #### [address] [place] [address] [place] ALP [Catalytic activity/Vol] 98 U/L High 32-92 [facility] Comment on above: Performed By: #### B CITY ENGINEER, CBC, PP, CMP #### [address] ALT [Catalytic activity/Vol] 28 U/L Normal 10-60 [facility] Comment on above: Performed By: #### B CITY ENGINEER, CBC, PP, CMP #### [address] Anion gap [Moles/Vol] 15.0 mmol/L Normal 6.0-15.0 [facility] Comment on above: Performed By: #### B CITY ENGINEER, CBC, PP, CMP #### [address] AST [Catalytic activity/Vol] 32 U/L Normal 10-42 [facility] Comment on above: Performed By: #### B CITY ENGINEER, CBC, PP, CMP #### [address] Bilirubin [Mass/Vol] 0.9 mg/dL Normal 0.3-1.2 [facility] Comment on above: Performed By: #### B CITY ENGINEER, CBC, PP, CMP #### [address] Calcium [Mass/Vol] 9.4 mg/dL Normal 8.2-10.[address] [facility] Comment on above: Performed By: #### B CITY ENGINEER, CBC, PP, CMP #### [address] Chloride [Moles/Vol] 96 mmol/L Normal 95-114 [facility] Comment on above: Performed By: #### B CITY ENGINEER, CBC, PP, CMP #### [address] CO2 [Moles/Vol] 28.8 mmol/L Normal 22.0-30.0 [facility] Comment on above: Performed By: #### B CITY ENGINEER, CBC, PP, CMP #### [facility] [address] Creatinine [Mass/Vol] 2.48 mg/dL High 0.64-1.27 [facility] Comment on above: Performed By: #### B CITY ENGINEER, CBC, PP, CMP #### [address] Creatinine Clr Calc Pharmacy 33.36 [facility] Comment on above: Result Comment: PERF ORMED BY: [place] [address] GARCIA M.D. Performed By: #### B CITY ENGINEER, CBC, PP, CMP #### [address] Estimated GFR ( Andra 31 [facility] Comment on above: Result Comment: GFR estimated reference range: According to KDOQI guidelines, <60 ml/min/1.73m2 is sufficient to diagnose a patient with chronic kidney disease. Performed By: #### B CITY ENGINEER, CBC, PP, CMP #### [address] Estimated GFR (Non- Am 26 [facility] Comment on above: Performed By: #### B CITY ENGINEER, CBC, PP, CMP #### [address] Globulin (S) [Mass/Vol] 4.1 g/dL [facility] Comment on above: Performed By: #### B CITY ENGINEER, CBC, PP, CMP #### [address] Glucose [Mass/Vol] 128 mg/dL High 70-[address] [facility] Comment on above: Result Comment: [place] om Glucose Reference Range is dependent on time and content of last meal. Glucose of more than 200 mg/dL in a nonstressed, ambulatory subject supports the diagnosis of Diabetes Mellitus. ADA recommended reference range Performed By: #### B CITY ENGINEER, CBC, PP, CMP #### [address] Potassium [Moles/Vol] 3.8 mmol/L Normal 3.5-5.1 [facility] Comment on above: Performed By: #### B CITY ENGINEER, CBC, PP, CMP #### [facility] [address] [place] [address] [place] Protein [Mass/Vol] 7.2 g/dL Normal 6.1-7.[address] [facility] Comment on above: Performed By: #### B CITY ENGINEER, CBC, PP, CMP #### [facility] [address] Sodium [Moles/Vol] 136 mmol/L Normal 136-[address] [facility] Comment on above: Performed By: #### B CITY ENGINEER, CBC, PP, CMP #### [facility] [address] Urea nitrogen [Mass/Vol] 40 mg/dL High 9-23 [facility] Comment on above: Performed By: #### B CITY ENGINEER, CBC, PP, CMP #### [facility] [address] Creatinine and Glomerular fi ltration rate.predicted panel (S/P/Bld)Ordered By: Melva Owusu on 06-27-2022 Creatinine [Mass/Vol] 2.48 mg/dL 0.64-1.27 [facility] Eosinophils Auto (Bld) [#/Vo l]Ordered By: Melva Owusu on 06-27-2022 Eosinophils (Bld) [#/Vol] 0.6 10*3/uL 0.0-0.45 [facility] Eosinophils/100 WBC Auto (Bl d)Ordered By: Melva Owusu on 06-27-2022 Eosinophils/100 WBC (Bld) 9.4 % . [facility] Erythrocyte distribution wid th Auto (RBC) [Ratio]Ordered By: Melva Owusu on 06-27-2022 Erythrocyte distribution width (RBC) [Ratio] 24.6 % 12.0-14.8 [facility] Estimated glomerular filtrat ion rate (GFR) non- AmericanOrdered By: Melva Owusu on 06-27-2022 GFR/1.73 sq M.predicted among non-blacks MDRD (S/P/Bld) [Vol rate/Area] 26 mL/Min [facility] Globulin Calc (S) [Mass/Vol] Ordered By: Melva Owusu on 06-27-2022 Globulin (S) [Mass/Vol] 4.1 g/dL [facility] Hematocrit Auto (Bld) [Volum e fraction]Ordered By: Melva Owusu on 06-27-2022 Hematocrit (Bld) [Volume fraction] 39.7 % 38.8-50.0 [facility] Hemoglobin [Mass/volume] in BloodOrdered By: Melva Owusu on 06-27-2022 Hemoglobin (Bld) [Mass/Vol] 12.9 g/dL 13.0-17.0 [facility] Ketones Auto test strip (U) [Mass/Vol]Ordered By: Melvavance Owusu on 06-27-2022 Ketones (U) [Mass/Vol] Negative Negative Fi [facility] Laboratory - Chemistry and C hemistry - challengeOrdered By: Melva Owusu on 06-27-2022 Natriuretic peptide B (Bld) [Mass/Vol] 367.0 pg/mL 5-100 [facility] Laboratory - CoagulationOrde red By: Melva Owusu on 06-27-2022 PT Coag (PPP) [Time] 17.3 s 9.0-12.9 [facility] - Hematology and Cell countsOrdered By: Melva Owusu on 06-27-2022 Nucleated RBC/100 WBC (Bld) [Ratio] 0.0 % 0-0.5 [facility] Lactic Acidon 06-27-2022 Lactate [Moles/Vol] 1.7 mmol/L Normal 0.5-2.2 [facility] Comment on above: Result Comment: PERF ORMED BY: [place] [address] GARCIA M.D. Performed By: #### C UBLD, LACTIC #### [address] Leukocytes [#/volume] in Blo od by Automated countOrdered By: Melva Owusu on 06-27-2022 WBC (Bld) [#/Vol] 6.5 10*3/uL 4.5-11.[address] [facility] Lymphocytes Auto (Bld) [#/Vo l]Ordered By: Melva Owusu on 06-27-2022 Lymphocytes (Bld) [#/Vol] 0.6 10*3/uL 1.00-4.8 [facility] Lymphocytes/100 WBC Auto (Bl d)Ordered By: Melva Owusu on 06-27-2022 Lymphocytes/100 WBC (Bld) 9.3 % . [facility] MCH Auto (RBC) [Entitic mass ]Ordered By: Melva Owusu on 06-27-2022 MCH (RBC) [Entitic mass] 26.8 pg 27.5-35.2 [facility] MCHC Auto (RBC) [Mass/Vol]Or dered By: Melva Owusu on 06-27-2022 MCHC (RBC) [Mass/Vol] 32.4 g/dL 32.5-35.6 [facility] MCV Auto (RBC) [Entitic vol] Ordered By: Melva Owusu on 06-27-2022 MCV (RBC) [Entitic vol] 82.7 fL 83.5-101 [facility] Monocytes Auto (Bld) [#/Vol] Ordered By: Melva Owusu on 06-27-2022 Monocytes (Bld) [#/Vol] 0.6 10*3/uL 0.0-0.8 [facility] Monocytes/100 WBC Auto (Bld) Ordered By: Melva Owusu on 06-27-2022 Monocytes/100 WBC (Bld) 9.4 % . [facility] Neutrophils Auto (Bld) [#/Vo l]Ordered By: Melva Owusu on 06-27-2022 Neutrophils (Bld) [#/Vol] 4.7 10*3/uL 1.8-7.7 [facility] Neutrophils/100 WBC Auto (Bl d)Ordered By: Melva Owusu on 06-27-2022 Neutrophils/100 WBC (Bld) 71.3 % . [facility] Nitrite Test strip Ql (U)Ord ered By: Melva Owusu on 06-27-2022 Nitrite Ql (U) Negative Negative [facility] No Panel InformationOrdered By: Melva Owusu on 06-27-2022 Estimated GFR () 31 mL/Min [facility] Comment on above: GFR estimated refere nce range: According to KDOQI guidelines, <60 ml/min/1.73m2 is sufficient to diagnose a patient with chronic kidney disease. Pharmacy Creatinine Clearance (Chem 33.36 [facility] No Panel InformationOrdered By: Balwinder Chavarria on 06-27-2022 SARS Antigen (LFIA) [facility] Platelet mean volume Auto (B ld) [Entitic vol]Ordered By: Melva Owusu on 06-27-2022 Platelet mean volume (Bld) [Entitic vol] 8.0 fL 6.6-10.1 [facility] Platelet poor plasma interna tional normalized ratio (INR) by coagulation assay (relatOrdered By: Melva Owusu on 06-27-2022 INR Coag (PPP) [Relative time] 1.5 {INR} [facility] Comment on above: INR Therapeutic [...] 06-27-2022 Platelets (Bld) [#/Vol] 163 10*3/uL 150-450 [facility] Protein Auto test strip (U) [Mass/Vol]Ordered By: Melva Owusu on 06-27-2022 Protein (U) [Mass/Vol] Negative Negative Fi [facility] Protein [Mass/volume] in Ser um or PlasmaOrdered By: Melva Owusu on 06-27-2022 Protein [Mass/Vol] 7.2 g/dL 6.1-7.[address] [facility] RBC Auto (Bld) [#/Vol]Ordere d By: Melva Owusu on 06-27-2022 RBC (Bld) [#/Vol] 4.80 10*6/uL 3.90-5.60 [facility] Serum or plasma alanine [place] otransferase measurement without P-5'-P (enzymatic activiOrdered By: Melva Owusu on 06-27-2022 ALT No additional P-5'-P [Catalytic activity/Vol] 28 U/L [facility] Serum or plasma albumin/glob ulin mass ratioOrdered By: Melva Owusu on 06-27-2022 Albumin/Globulin [Mass ratio] 0.8 {ratio} [facility] Serum or plasma alkaline mumtaz sphatase measurement (enzymatic activity/volume)Ordered By: Melva Owusu on 06-27-2022 ALP [Catalytic activity/Vol] 98 U/L 32-92 [facility] Serum or plasma anion gap de terminationOrdered By: Melva Owusu on 06-27-2022 Anion gap [Moles/Vol] 15.0 mmol/L 6.0-15.0 [facility] Serum or plasma aspartate am inotransferase measurement (enzymatic activity/volume)Ordered By: Melva Owusu on 06-27-2022 AST [Catalytic activity/Vol] 32 U/L [facility] Serum or plasma calcium brii urement (mass/volume)Ordered By: Melva Owusu on 06-27-2022 Calcium [Mass/Vol] 9.4 mg/dL 8.2-10.[address] [facility] Serum or plasma chloride edgar surement (moles/volume)Ordered By: Melva Owusu on 06-27-2022 Chloride [Moles/Vol] 96 mmol/L 95-114 [facility] Serum or plasma glucose brii urement (mass/volume)Ordered By: Melva Owusu on 06-27-2022 Glucose [Mass/Vol] 128 mg/dL 70-[address] [facility] Comment on above: ADA recommended refe rence rangeRandom Glucose Reference Range is dependent on time and content of last meal. Glucose of more than 200 mg/dL in a nonstressed, ambulatory subject supports the diagnosis of Diabetes Mellitus. Serum or plasma potassium me asurement (moles/volume)Ordered By: Melva Owusu on 06-27-2022 Potassium [Moles/Vol] 3.8 mmol/L 3.5-5.1 [facility] Serum or plasma sodium measu rement (moles/volume)Ordered By: Melva Owusu on 06-27-2022 Sodium [Moles/Vol] 136 mmol/L 136-[address] [facility] Serum or plasma total biliru bin measurement (mass/volume)Ordered By: Melva Petersonokjose francisco on 06-27-2022 Bilirubin [Mass/Vol] 0.9 mg/dL 0.3-1.2 [facility] Serum or plasma total carbon dioxide measurement (moles/volume)Ordered By: Melva Petersonokjose francisco on 06-27-2022 CO2 [Moles/Vol] 28.8 mmol/L 22.0-30.0 [facility] Serum or plasma urea nitroge n measurement (mass/volume)Ordered By: Melva Owusu on 06-27-2022 Urea nitrogen [Mass/Vol] 40 mg/dL 9- [facility] Jose Ag Negativeon 06-27-20 Jose Ag Negative Negative Normal Negative [facility] Comment on above: Result Comment: This is a duplicate Jose SARS Antigen (MORIAH) result to be used for statistical tracking purpose only. PERFORMED BY: [place] [address] GARCIA M.D. Performed By: #### S ANA PATELNE-19 JOSE #### [facility] [address] Specific gravity Auto test s trip (U) [Rel density]Ordered By: Melva Owusu on 06-27-2022 Specific gravity (U) [Rel density] 1.012 1.001-1.030 [facility] Urinalysison 06-27-2022 Appearance (U) Clear Normal Clear [facility] Comment on above: Order Comment: Name Collection Type:: Clean-Voided Midstream Performed By: #### U A #### [facility] [address] [place] [address] [place] Bilirubin,Urine Negative Normal Negative [facility] Comment on above: Order Comment: Name Collection Type:: Clean-Voided Midstream Performed By: #### U A #### [address] Color (U) Yellow Normal Yellow [facility] Comment on above: Order Comment: Name Collection Type:: Clean-Voided Midstream Performed By: #### U A #### [address] Glucose Ql (U) Normal Normal Normal [facility] Comment on above: Order Comment: Name Collection Type:: Clean-Voided Midstream Performed By: #### U A #### [address] Ketones Ql (U) Negative Normal Negative [facility] Comment on above: Order Comment: Name Collection Type:: Clean-Voided Midstream Performed By: #### U A #### [address] Leukocyte esterase Test strip Ql (U) Negative Normal Negative [facility] Comment on above: Order Comment: Name Collection Type:: Clean-Voided Midstream Performed By: #### U A #### [place] [address] [place] Nitrite,Urine Negative Normal Negative [facility] Comment on above: Order Comment: Name Collection Type:: Clean-Voided Midstream Performed By: #### U A #### [place] [address] [place] Occult Blood,Urine Negative Normal Negative [facility] Comment on above: Order Comment: Name Collection Type:: Clean-Voided Midstream Result Comment: PERF ORMED BY: [place] [address] GARCIA M.D. Performed By: #### U A #### [place] [address] [place] pH (U) 6.0 [pH] Normal 5.0-9.0 [facility] Comment on above: Order Comment: Name Collection Type:: Clean-Voided Midstream Performed By: #### U A #### [facility] [address] Protein,Urine Negative Normal Negative [facility] Comment on above: Order Comment: Name Collection Type:: Clean-Voided Midstream Performed By: #### U A #### [facility] [address] Specificy Cope,Urine 1.012 Normal 1.001-1.030 [facility] Comment on above: Order Comment: Name Collection Type:: Clean-Voided Midstream Performed By: #### U A #### [address] Urobilinogen,Urine Normal Normal Normal [facility] Comment on above: Order Comment: Name Collection Type:: Clean-Voided Midstream Performed By: #### U A #### [address] Urine clarity by refractomet ry automatedOrdered By: Melva Owusu on 06-27-2022 Clarity Refractometry automated (U) Clear Clear [facility] Urine glucose measurement by automated test strip (mass/volume)Ordered By: Melva Owusu on 06-27-2022 Glucose Auto test strip (U) [Mass/Vol] Normal mg/dL Normal [facility] Urine hemoglobin detection b y automated test stripOrdered By: Mevla Owusu on 06-27-2022 Hemoglobin Auto test strip Ql (U) Negative Negative [facility] Urine lactic acid measuremen tOrdered By: Melva Owusu on 06-27-2022 Lactate (U) [Moles/Vol] 1.7 mmol/L 0.5-2.2 [facility] Urine leukocyte esterase det ection by automated test stripOrdered By: Melva Owusu on 06-27-2022 Leukocyte esterase Auto test strip Ql (U) Negative Negative [facility] Urobilinogen Auto test strip (U) [Mass/Vol]Ordered By: Melva Owusu on 10-20-2022 Urobilinogen (U) [Mass/Vol] Normal mg/dL Normal [facility] XR chest 2V*on 06-27-2022 XR chest 2V* [facility] [place] [address] [place] [address] XRay Report Signed Patient: Man Patel MR#: [id number] : 1950 Acct:[id number] Age/Sex: 72 / M ADM Date: 06/27/22 Loc: ER Room: Type: [facility] ER Attending Dr: Copies to: [...] Cris Johnson M.D.06/27/2022 3:42 PM Dictation Location: [place] [address] Transcribed By: [facility] 06/27/221541 Dictated By: Cris Johnson MD 06/27/22 154 Signed By: 06/27/221541 Normal [facility] pH Auto test strip (U)Ordere d By: Melva Owusu on 06-27-2022 pH (U) 6.0 [pH] 5.0-9.0 [facility] ECHOCARDIO M/2D COMPLETEon 1 ECHOCARDIO M/2D COMPLETE Normal [facility] BASIC METABOLIC PANELon 09-0 Calcium [Mass/Vol] 8.6 mg/dL Normal 8.6-10.3 [facility] Comment on above: Order Comment: Yes: Add to Previous draw if able Performed By: #### 5 0103 #### [facility] [address] [place] [address], [facility] Chloride [Moles/Vol] 97 mmol/L Low 98-107 [facility] Comment on above: Order Comment: Yes: Add to Previous draw if able Performed By: #### 5 0103 #### [facility] [address] [place] [address], [facility] CO2 [Moles/Vol] 30 mmol/L Normal 21-31 [facility] Comment on above: Order Comment: Yes: Add to Previous draw if able Performed By: #### 5 0103 #### [facility] [address] [place] [id number], [facility] Creatinine [Mass/Vol] 2.14 mg/dL High 0.70-1.30 [facility] Comment on above: Order Comment: Yes: Add to Previous draw if able Performed By: #### 5 0103 #### [facility] [address] [place] [address], [facility] EGFR 32 ml/min/1.73sq m Abnormal >60 [facility] Comment on above: Order Comment: Yes: Add to Previous draw if able Result Comment: [facility]'s estimated glomerular filtration rate (eGFR) will [...] individuals. Performed By: #### 5 0103 #### [facility] [address] [place] [id number], [place] Glucose [Mass/Vol] 90 mg/dL Normal 70-100 [facility] Comment on above: Order Comment: Yes: Add to Previous draw if able Performed By: #### 5 0103 #### [facility] [address] Potassium [Moles/Vol] 3.7 mmol/L Normal 3.5-5.1 [facility] Comment on above: Order Comment: Yes: Add to Previous draw if able Performed By: #### 5 0103 #### [facility] [address] Sodium [Moles/Vol] 135 mmol/L Low 136-145 [facility] Comment on above: Order Comment: Yes: Add to Previous draw if able Performed By: #### 5 0103 #### [facility] [address] Urea nitrogen [Mass/Vol] 32 mg/dL High 7-25 [facility] Comment on above: Order Comment: Yes: Add to Previous draw if able Performed By: #### 5 0103 #### [facility] [address] *SARS-CoV-2 COVID-19on 05-07 SARS-CoV-2 (COVID-19) RNA ELIZABETH+probe Ql (Unsp spec) Detected Critically abnormal Not Detected [facility] Comment on above: Order Comment: The A ptima SARS-CoV-2 assay is a nucleic acid amplification testintended for the qualitative detection of RNA from SARS-CoV-2 isolatedand purified from nasopharyngeal (CITY ENGINEER), oropharyngeal (OP), nasal swab,sputum, and bronchoalveolar lavage (BAL) specimens from patients withsigns and symptoms of infection who are suspected of COVID-19.Results are for the identification of SARS-CoV-2 RNA. The SARS-CoV-2 RNAis generally detectable during the acute phase of infection.The Aptima SARS-CoV-2 Assay on the [place] [employer] system isintended for use by laboratory personnel specifically instructed andtrained in the operation of the [place] [employer] system. TheAptima SARS-CoV-2 assay is only [...] other viruses. Performed By: #### 3 [id number] ####[facility] [place] [address], [facility] BASIC METABOLIC PANELon 08-3 -2021 Calcium [Mass/Vol] 8.4 mg/dL Low 8.6-10.3 [facility] Comment on above: Order Comment: No: D o not add to previous draw Performed By: #### 0 0071, 58603, 58472 ####[facility] [place] [address], [facility] Chloride [Moles/Vol] 97 mmol/L Low 98-107 [facility] Comment on above: Order Comment: No: D o not add to previous draw Performed By: #### 0 0071, 81803, 19488 ####[facility] [place] [address], [facility] CO2 [Moles/Vol] 30 mmol/L Normal 21-31 [facility] Comment on above: Order Comment: No: D o not add to previous draw Performed By: #### 0 0071, 28124, 66036 ####[facility] [id number], [facility] Creatinine [Mass/Vol] 2.06 mg/dL High 0.70-1.30 [facility] Comment on above: Order Comment: No: D o not add to previous draw Performed By: #### 0 0071, 45966, 64278 ####[facility] EGFR 34 ml/min/1.73sq m Abnormal >60 [facility] Comment on above: Order Comment: No: D o not add to previous draw Result Comment: [facility]'s estimated glomerular filtration rate (eGFR) will [...] of individuals. Performed By: #### 0 0071, 98743, 18004 ####[facility] [facility] [place] [address], [facility] Glucose [Mass/Vol] 86 mg/dL Normal 70-100 [facility] Comment on above: Order Comment: No: D o not add to previous draw Performed By: #### 0 0071, 41569, 60097 ####[facility] [facility] [place] [address], [facility] Potassium [Moles/Vol] 3.7 mmol/L Normal 3.5-5.1 [facility] Comment on above: Order Comment: No: D o not add to previous draw Performed By: #### 0 0071, 75435, 73324 ####[facility] [place] [address], [facility] Sodium [Moles/Vol] 135 mmol/L Low 136-145 [facility] Comment on above: Order Comment: No: D o not add to previous draw Performed By: #### 0 0071, 08006, 97152 ####[facility] [place] [address], [facility] Urea nitrogen [Mass/Vol] 35 mg/dL High 7-25 [facility] Comment on above: Order Comment: No: D o not add to previous draw Performed By: #### 0 0071, 94280, 53154 ####[facility] CBC COMPLETE BLOOD COUNTon 0 05-07-2022 Erythrocyte distribution width (RBC) [Ratio] 21.2 % High 11.5-15.0 [facility] Comment on above: Order Comment: No: D o not add to previous draw Performed By: #### 5 0608 #### [facility] [address] [place] [address], [facility] Hematocrit (Bld) [Volume fraction] 36.1 % Low 39.0-50.0 [facility] Comment on above: Order Comment: No: D o not add to previous draw Performed By: #### 5 0608 #### [facility] [address] [place] [address], [facility] Hemoglobin (Bld) [Mass/Vol] 10.4 g/dL Low 13.0-17.0 [facility] Comment on above: Order Comment: No: D o not add to previous draw Performed By: #### 5 0608 #### [facility] [address] [address], [facility] MCH (RBC) [Entitic mass] 23.6 pg Low 27.0-33.0 [facility] Comment on above: Order Comment: No: D o not add to previous draw Performed By: #### 5 0608 #### [facility] [address] [place] [address], [facility] MCHC (RBC) [Mass/Vol] 28.8 g/dL Low 32.0-35.0 [facility] Comment on above: Order Comment: No: D o not add to previous draw Performed By: #### 5 0608 #### [facility] [address] [place] [id number], [facility] MCV (RBC) [Entitic vol] 81.9 fL Low 82.0-98.0 [facility] Comment on above: Order Comment: No: D o not add to previous draw Performed By: #### 5 0608 #### [facility] [address] [place] [address], [facility] Nucleated RBC/100 WBC (Bld) [Ratio] 0 % Normal 0-0 [facility] Comment on above: Order Comment: No: D o not add to previous draw Performed By: #### 5 0608 #### [facility] [address] [place] [address], [facility] PLAT CNT 207 10*3/uL Normal 150-400 [facility] Comment on above: Order Comment: No: D o not add to previous draw Performed By: #### 5 0608 #### [facility] [address] [place] [address], [facility] RBC (Bld) [#/Vol] 4.41 10*6/uL Normal 4.20-5.70 [facility] Comment on above: Order Comment: No: D o not add to previous draw Performed By: #### 5 0608 #### [facility] [address] [facility] [place] [address], [facility] WBC (Bld) [#/Vol] 4.60 10*3/uL Normal 4.00-10.60 [facility] Comment on above: Order Comment: No: D o not add to previous draw Performed By: #### 5 0608 #### [facility] [address] [place] [address], [facility] MAGNESIUM BLOODon 05-07-2022 Magnesium [Mass/Vol] 2.3 mg/dL Normal 1.9-2.7 [facility] Comment on above: Order Comment: No: D o not add to previous draw Performed By: #### 0 0071, 49070, 21631 ####[facility] [place] [address], [facility] PHOSPHORUS BLOODon Phosphate [Mass/Vol] 2.6 mg/dL Normal 2.5-5.0 [facility] Comment on above: Order Comment: No: D o not add to previous draw Performed By: #### 0 0071, 14297, 94819 ####[facility] POC SARS COV2 ANTIGEN POSITI VEon 05-07-2022 POC SARS COV2 ANTIGEN POS Positive Critically abnormal NEGATIVE [facility] Comment on above: Result Comment: Posi tive results indicate the presence of viral antigens, but clinical correlation with patient history and other diagnostic information is necessary to determine infection status. Positive results do not rule out bacterial infection or co-infection with other viruses. The agent detected may not be the definite cause of disease. Laboratories within the [facility] and its territories are required to report all results to the appropriate public health authorities. The Clarity COVID-19 Antigen Rapid Test Cassette is a rapid chromatographic immunoassay intended for the qualitative detection of the nucleocapsid protein antigen from SARS-CoV-2 in direct nasopharyngeal swab (CITY [employer]INEER) specimens from individuals who are suspected of [...] of Accreditation. Performed By: #### 3 2044 #### [facility] [address] [place] [address], [facility] BASIC METABOLIC PANELon 04-09 Calcium [Mass/Vol] 8.3 mg/dL Low 8.6-10.3 [facility] Comment on above: Order Comment: No: D o not add to previous draw Performed By: #### 7 0207 #### [facility] [address] [facility] [place] [address], [facility] Chloride [Moles/Vol] 99 mmol/L Normal 98-107 [facility] Comment on above: Order Comment: No: D o not add to previous draw Performed By: #### 7 0207 #### [facility] [address] [place] [address], [place] CO2 [Moles/Vol] 30 mmol/L Normal 21-31 [facility] Comment on above: Order Comment: No: D o not add to previous draw Performed By: #### 7 0207 #### [facility] [address] [place] [address], [place] Creatinine [Mass/Vol] 2.08 mg/dL High 0.70-1.30 [facility] Comment on above: Order Comment: No: D o not add to previous draw Performed By: #### 7 0207 #### [facility] [address] [place] [address], [facility] EGFR 34 ml/min/1.73sq m Abnormal >60 [facility] Comment on above: Order Comment: No: D o not add to previous draw Result Comment: [facility]'s estimated glomerular filtration rate (eGFR) will [...] individuals. Performed By: #### 7 0207 #### [facility] [address] [place] [address], [place] Glucose [Mass/Vol] 91 mg/dL Normal 70-100 [facility] Comment on above: Order Comment: No: D o not add to previous draw Performed By: #### 7 0207 #### [facility] [address] [place] [address], [place] Potassium [Moles/Vol] 3.5 mmol/L Normal 3.5-5.1 [facility] Comment on above: Order Comment: No: D o not add to previous draw Performed By: #### 7 0207 #### [facility] [address] [place] [address], [facility] Sodium [Moles/Vol] 137 mmol/L Normal 136-145 [facility] Comment on above: Order Comment: No: D o not add to previous draw Performed By: #### 7 0207 #### [facility] [address] [place] [address], [facility] Urea nitrogen [Mass/Vol] 36 mg/dL High 7-25 [facility] Comment on above: Order Comment: No: D o not add to previous draw Performed By: #### 7 0207 #### [facility] [address] TSH3 WITH REFLEX FT4on 05-06 TSH 3RD GENERATION 2.46 uIU/mL Normal 0.34-5.60 [facility] Comment on above: Performed By: #### 7 0207 #### [facility] [address] [place] [address], [facility] BASIC METABOLIC PANELon 04-09 Calcium [Mass/Vol] 7.9 mg/dL Low 8.6-10.3 [facility] Comment on above: Order Comment: Check Pacemaker/AICD Lead Position, Chest X-ray PA \EANDE\ LAT in Dept ;DO NOT lift affected arm above shoulder. S/P pacemaker/ICD implant. Verify lead placement Performed By: #### 0 0071 ####[facility] [place] [address], [facility] Chloride [Moles/Vol] 99 mmol/L Normal 98-107 [facility] Comment on above: Order Comment: Check Pacemaker/AICD Lead Position, Chest X-ray PA \EANDE\ LAT in Dept ;DO NOT lift affected arm above shoulder. S/P pacemaker/ICD implant. Verify lead placement Performed By: #### 0 0071 ####[facility] [facility] [place] [address], [facility] CO2 [Moles/Vol] 28 mmol/L Normal 21-31 [facility] Comment on above: Order Comment: Check Pacemaker/AICD Lead Position, Chest X-ray PA \EANDE\ LAT in Dept ;DO NOT lift affected arm above shoulder. S/P pacemaker/ICD implant. Verify lead placement Performed By: #### 0 0071 ####[facility] [facility].[address] Creatinine [Mass/Vol] 2.11 mg/dL High 0.70-1.30 [facility] Comment on above: Order Comment: Check Pacemaker/AICD Lead Position, Chest X-ray PA \EANDE\ LAT in Dept ;DO NOT lift affected arm above shoulder. S/P pacemaker/ICD implant. Verify lead placement Performed By: #### 0 0071 ####[facility] EGFR 33 ml/min/1.73sq m Abnormal >60 [facility] Comment on above: Order Comment: Check Pacemaker/AICD Lead Position, Chest X-ray PA \EANDE\ LAT in Dept ;DO NOT lift affected arm above shoulder. S/P pacemaker/ICD implant. Verify lead placement Result Comment: [facility]'s estimated glomerular filtration rate (eGFR) will [...] of individuals. Performed By: #### 0 0071 ####[facility] [facility] [place] [address], [facility] Glucose [Mass/Vol] 95 mg/dL Normal 70-100 [facility] Comment on above: Order Comment: Check Pacemaker/AICD Lead Position, Chest X-ray PA \EANDE\ LAT in Dept ;DO NOT lift affected arm above shoulder. S/P pacemaker/ICD implant. Verify lead placement Performed By: #### 0 0071 ####[facility] Potassium [Moles/Vol] 3.5 mmol/L Normal 3.5-5.1 [facility] Comment on above: Order Comment: Check Pacemaker/AICD Lead Position, Chest X-ray PA \EANDE\ LAT in Dept ;DO NOT lift affected arm above shoulder. S/P pacemaker/ICD implant. Verify lead placement Performed By: #### 0 0071 ####[facility] Sodium [Moles/Vol] 137 mmol/L Normal 136-145 [facility] Comment on above: Order Comment: Check Pacemaker/AICD Lead Position, Chest X-ray PA \EANDE\ LAT in Dept ;DO NOT lift affected arm above shoulder. S/P pacemaker/ICD implant. Verify lead placement Performed By: #### 0 0071 ####[facility] Urea nitrogen [Mass/Vol] 37 mg/dL High 7-25 [facility] Comment on above: Order Comment: Check Pacemaker/AICD Lead Position, Chest X-ray PA \EANDE\ LAT in Dept ;DO NOT lift affected arm above shoulder. S/P pacemaker/ICD implant. Verify lead placement Performed By: #### 0 0071 ####[facility] CBC COMPLETE BLOOD COUNTon 0 - Erythrocyte distribution width (RBC) [Ratio] 21.2 % High 11.5-15.0 [facility] Comment on above: Order Comment: Unkno wn Performed By: #### 5 0608 ####[facility] [facility].[address] Hematocrit (Bld) [Volume fraction] 35.5 % Low 39.0-50.0 [facility] Comment on above: Order Comment: Unkno wn Performed By: #### 5 0608 ####[facility] [facility].[address] Hemoglobin (Bld) [Mass/Vol] 10.5 g/dL Low 13.0-17.0 [facility] Comment on above: Order Comment: Unkno wn Performed By: #### 5 0608 ####[facility] MCH (RBC) [Entitic mass] 23.8 pg Low 27.0-33.0 [facility] Comment on above: Order Comment: Unkno wn Performed By: #### 5 0608 ####[facility] [facility].[address] MCHC (RBC) [Mass/Vol] 29.6 g/dL Low 32.0-35.0 [facility] Comment on above: Order Comment: Unkno wn Performed By: #### 5 0608 ####[facility] MCV (RBC) [Entitic vol] 80.5 fL Low 82.0-98.0 [facility] Comment on above: Order Comment: Unkno wn Performed By: #### 5 0608 ####[facility] Nucleated RBC/100 WBC (Bld) [Ratio] 0 % Normal 0-0 [facility] Comment on above: Order Comment: Unkno wn Performed By: #### 5 0608 ####[facility] [place] [address], [facility] PLAT CNT 161 10*3/uL Normal 150-400 [facility] Comment on above: Order Comment: Unkno wn Performed By: #### 5 0608 ####[facility] [place] [address], [facility] RBC (Bld) [#/Vol] 4.41 10*6/uL Normal 4.20-5.70 [facility] Comment on above: Order Comment: Unkno wn Performed By: #### 5 0608 ####[facility] [place] [address], [place] WBC (Bld) [#/Vol] 4.71 10*3/uL Normal 4.00-10.60 [facility] Comment on above: Order Comment: Unkno wn Performed By: #### 5 0608 ####[facility] [place] [address], [facility] BASIC METABOLIC PANELon 08-2 Calcium [Mass/Vol] 8.1 mg/dL Low 8.6-10.3 [facility] Comment on above: Order Comment: No: D o not add to previous draw Performed By: #### 3 2044 #### [facility] [address] [place] [address], [place] Chloride [Moles/Vol] 97 mmol/L Low 98-107 [facility] Comment on above: Order Comment: No: D o not add to previous draw Performed By: #### 3 2044 #### [facility] [address] [place] [address], [place] CO2 [Moles/Vol] 31 mmol/L Normal 21-31 [facility] Comment on above: Order Comment: No: D o not add to previous draw Performed By: #### 3 2044 #### [facility] [address] [place] [address], [place] Creatinine [Mass/Vol] 1.98 mg/dL High 0.70-1.30 [facility] Comment on above: Order Comment: No: D o not add to previous draw Performed By: #### 3 2044 #### [facility] [address] [place] [address], [facility] EGFR 36 ml/min/1.73sq m Abnormal >60 [facility] Comment on above: Order Comment: No: D o not add to previous draw Result Comment: [facility]'s estimated glomerular filtration rate (eGFR) will [...] individuals. Performed By: #### 3 2044 #### [facility] [address] [place] [id number], [facility] Glucose [Mass/Vol] 88 mg/dL Normal 70-100 [facility] Comment on above: Order Comment: No: D o not add to previous draw Performed By: #### 3 2044 #### [facility] [address] [place] [id number], [facility] Potassium [Moles/Vol] 3.5 mmol/L Normal 3.5-5.1 [facility] Comment on above: Order Comment: No: D o not add to previous draw Performed By: #### 3 2044 #### [facility] [address] [place] [address], [place] Sodium [Moles/Vol] 137 mmol/L Normal 136-145 [facility] Comment on above: Order Comment: No: D o not add to previous draw Performed By: #### 3 2044 #### [facility] [address] [place] [address], [place] Urea nitrogen [Mass/Vol] 35 mg/dL High 7-25 [facility] Comment on above: Order Comment: No: D o not add to previous draw Performed By: #### 3 5 #### [facility] [address] CBC COMPLETE BLOOD COUNTon 05-04-2022 Erythrocyte distribution width (RBC) [Ratio] 21.2 % High 11.5-15.0 [facility] Comment on above: Order Comment: No: D o not add to previous draw Performed By: #### 5 0608 ####[facility] Hematocrit (Bld) [Volume fraction] 34.6 % Low 39.0-50.0 [facility] Comment on above: Order Comment: No: D o not add to previous draw Performed By: #### 5 0608 ####[facility] Hemoglobin (Bld) [Mass/Vol] 10.2 g/dL Low 13.0-17.0 [facility] Comment on above: Order Comment: No: D o not add to previous draw Performed By: #### 5 0608 ####[facility] MCH (RBC) [Entitic mass] 23.8 pg Low 27.0-33.0 [facility] Comment on above: Order Comment: No: D o not add to previous draw Performed By: #### 5 0608 ####[facility] MCHC (RBC) [Mass/Vol] 29.5 g/dL Low 32.0-35.0 [facility] Comment on above: Order Comment: No: D o not add to previous draw Performed By: #### 5 0608 ####[facility] [place] [address], [facility] MCV (RBC) [Entitic vol] 80.8 fL Low 82.0-98.0 [facility] Comment on above: Order Comment: No: D o not add to previous draw Performed By: #### 5 0608 ####[facility] Nucleated RBC/100 WBC (Bld) [Ratio] 0 % Normal 0-0 [facility] Comment on above: Order Comment: No: D o not add to previous draw Performed By: #### 5 0608 ####[facility] PLAT CNT 131 10*3/uL Low 150-400 [facility] Comment on above: Order Comment: No: D o not add to previous draw Performed By: #### 5 0608 ####[facility] [place] [address], [facility] RBC (Bld) [#/Vol] 4.28 10*6/uL Normal 4.20-5.70 [facility] Comment on above: Order Comment: No: D o not add to previous draw Performed By: #### 5 0608 ####[facility] [facility] [place] [address], [facility] WBC (Bld) [#/Vol] 4.58 10*3/uL Normal 4.00-10.60 [facility] Comment on above: Order Comment: No: D o not add to previous draw Performed By: #### 5 0608 ####[facility] Cardiovascular Lab Reporton 05-04-2022 Cardiovascular Lab Report [facility] Patient Name: [facility] Man Ace MR #: [id number] Department of Physician: Fidel Scott M.D. Division of Service Date: 05/03/2022 Cardiology Birthdate: 1950 Adult Cardiovascular Room #: 5AB [id number] [facility] [address] [place] [address] Cardiovascular Laboratory Report FINAL IMPRESSIONS: 1. Moderately [...] over the hub of the previously placed Success sheath. A Evangelista catheter was advanced through Success sheath; pressures were measured in the right atrium, right ventricle, pulmonary artery, and pulmonary capillary wedge positions. Oxygen saturations were obtained and cardiac output/cardiac index was calculated using the modified Eliud principle. The Evangelista catheter was removed. The Success sheath was to be removed with application [...] Iniguez M.D. Date Trans: 05/04/2022 05:38 A/surekha [id number] cc: Li Addison Moukarbel, M.D. Heart Failure/ Transplant Mailstop [address] [place] [address] Normal [facility] BASIC METABOLIC PANELon 08-2 Calcium [Mass/Vol] 7.8 mg/dL Low 8.6-10.3 [facility] Comment on above: Order Comment: Check Pacemaker/AICD Lead Position, Chest X-ray PA \EANDE\ LAT in Dept ;DO NOT lift affected arm above shoulder. S/P pacemaker/ICD implant. Verify lead placement Performed By: #### 4 1000, 99640, 99858 ####[facility] [place] [address], [facility] Chloride [Moles/Vol] 98 mmol/L Normal 98-107 [facility] Comment on above: Order Comment: Check Pacemaker/AICD Lead Position, Chest X-ray PA \EANDE\ LAT in Dept ;DO NOT lift affected arm above shoulder. S/P pacemaker/ICD implant. Verify lead placement Performed By: #### 4 1000, 92030, 76435 ####[facility] [place] [address], [facility] CO2 [Moles/Vol] 31 mmol/L Normal 21-31 [facility] Comment on above: Order Comment: Check Pacemaker/AICD Lead Position, Chest X-ray PA \EANDE\ LAT in Dept ;DO NOT lift affected arm above shoulder. S/P pacemaker/ICD implant. Verify lead placement Performed By: #### 4 1000, 90827, 36457 ####[facility] [place] [address], [facility] Creatinine [Mass/Vol] 2.19 mg/dL High 0.70-1.30 [facility] Comment on above: Order Comment: Check Pacemaker/AICD Lead Position, Chest X-ray PA \EANDE\ LAT in Dept ;DO NOT lift affected arm above shoulder. S/P pacemaker/ICD implant. Verify lead placement Performed By: #### 4 1000, 83453, 13406 ####[facility] EGFR 32 ml/min/1.73sq m Abnormal >60 [facility] Comment on above: Order Comment: Check Pacemaker/AICD Lead Position, Chest X-ray PA \EANDE\ LAT in Dept ;DO NOT lift affected arm above shoulder. S/P pacemaker/ICD implant. Verify lead placement Result Comment: [facility]'s estimated glomerular filtration rate (eGFR) will [...] of individuals. Performed By: #### 4 1000, 58654, 45686 ####[facility] [place] [address], [facility] Glucose [Mass/Vol] 95 mg/dL Normal 70-100 [facility] Comment on above: Order Comment: Check Pacemaker/AICD Lead Position, Chest X-ray PA \EANDE\ LAT in Dept ;DO NOT lift affected arm above shoulder. S/P pacemaker/ICD implant. Verify lead placement Performed By: #### 4 1000, 82650, 96824 ####[facility] [facility] [place] [address], [facility] Potassium [Moles/Vol] 3.3 mmol/L Low 3.5-5.1 [facility] Comment on above: Order Comment: Check Pacemaker/AICD Lead Position, Chest X-ray PA \EANDE\ LAT in Dept ;DO NOT lift affected arm above shoulder. S/P pacemaker/ICD implant. Verify lead placement Performed By: #### 4 1000, 72739, 49838 ####[facility] [facility] [place] [address], [facility] Sodium [Moles/Vol] 137 mmol/L Normal 136-145 [facility] Comment on above: Order Comment: Check Pacemaker/AICD Lead Position, Chest X-ray PA \EANDE\ LAT in Dept ;DO NOT lift affected arm above shoulder. S/P pacemaker/ICD implant. Verify lead placement Performed By: #### 4 1000, 23059, 75900 ####[facility] Urea nitrogen [Mass/Vol] 39 mg/dL High 7-25 [facility] Comment on above: Order Comment: Check Pacemaker/AICD Lead Position, Chest X-ray PA \EANDE\ LAT in Dept ;DO NOT lift affected arm above shoulder. S/P pacemaker/ICD implant. Verify lead placement Performed By: #### 4 1000, 76069, 35590 ####[facility] CBC W/DIFFon 05-03-2022 ABS IMM GRANS 0.0 10*3/uL Normal 0.0-0.2 [facility] Comment on above: Order Comment: No: D o not add to previous draw Performed By: #### 5 0608 #### [facility] [address] ABS NEUTROPHILS 3.8 10*3/uL Normal 1.6-7.6 [facility] Comment on above: Order Comment: No: D o not add to previous draw Performed By: #### 5 0608 #### [facility] [address] Basophils (Bld) [#/Vol] 0.0 10*3/uL Normal 0.0-0.2 [facility] Comment on above: Order Comment: No: D o not add to previous draw Performed By: #### 5 0608 #### [facility] [address] [place] [address], [facility] Basophils/100 WBC (Bld) 0.4 % Normal 0.0-1.0 [facility] Comment on above: Order Comment: No: D o not add to previous draw Performed By: #### 5 0608 #### [facility] [address] [place] [address], [facility] Eosinophils (Bld) [#/Vol] 0.3 10*3/uL Normal 0.0-0.5 [facility] Comment on above: Order Comment: No: D o not add to previous draw Performed By: #### 5 0608 #### [facility] [address] [place] [address], [facility] Eosinophils/100 WBC (Bld) 5.9 % Normal 0.0-6.0 [facility] Comment on above: Order Comment: No: D o not add to previous draw Performed By: #### 5 0608 #### [facility] [address] Erythrocyte distribution width (RBC) [Ratio] 20.8 % High 11.5-15.0 [facility] Comment on above: Order Comment: No: D o not add to previous draw Performed By: #### 5 0608 #### [facility] [address] [place] [address], [place] [facility] Hematocrit (Bld) [Volume fraction] 31.0 % Low 39.0-50.0 [facility] Comment on above: Order Comment: No: D o not add to previous draw Performed By: #### 5 0608 #### [facility] [address] [place] [address], [facility] Hemoglobin (Bld) [Mass/Vol] 9.2 g/dL Low 13.0-17.0 [facility] Comment on above: Order Comment: No: D o not add to previous draw Performed By: #### 5 0608 #### [facility] [address] [place] [address], [facility] IMMATURE GRANS 0.6 % Normal 0.0-1.0 [facility] Comment on above: Order Comment: No: D o not add to previous draw Performed By: #### 5 0608 #### [facility] [address] [place] [address], [facility] Lymphocytes (Bld) [#/Vol] 0.6 10*3/uL Low 1.2-4.0 [facility] Comment on above: Order Comment: No: D o not add to previous draw Performed By: #### 5 0608 #### [facility] [address] [place] [address], [facility] Lymphocytes/100 WBC (Bld) 11.3 % Low 20.0-45.0 [facility] Comment on above: Order Comment: No: D o not add to previous draw Performed By: #### 5 0608 #### [facility] [address] [place] [address], [facility] MCH (RBC) [Entitic mass] 24.0 pg Low 27.0-33.0 [facility] Comment on above: Order Comment: No: D o not add to previous draw Performed By: #### 5 0608 #### [facility] [address] [address], [facility] MCHC (RBC) [Mass/Vol] 29.7 g/dL Low 32.0-35.0 [facility] Comment on above: Order Comment: No: D o not add to previous draw Performed By: #### 5 0608 #### [facility] [address] [address], [facility] MCV (RBC) [Entitic vol] 80.9 fL Low 82.0-98.0 [facility] Comment on above: Order Comment: No: D o not add to previous draw Performed By: #### 5 0608 #### [facility] [address] [address], [facility] Monocytes (Bld) [#/Vol] 0.4 10*3/uL Normal 0.1-1.0 [facility] Comment on above: Order Comment: No: D o not add to previous draw Performed By: #### 5 0608 #### [facility] [address] [place] [address], [facility] MONOS 8.2 % Normal 5.0-12.0 [facility] Comment on above: Order Comment: No: D o not add to previous draw Performed By: #### 5 0608 #### [facility] [address] [place] [address], [place] Neutrophils/100 WBC (Bld) 73.6 % High 40.0-72.0 [facility] Comment on above: Order Comment: No: D o not add to previous draw Performed By: #### 5 0608 #### [facility] [address] [place] [address], [place] Nucleated RBC/100 WBC (Bld) [Ratio] 0 % Normal 0-0 [facility] Comment on above: Order Comment: No: D o not add to previous draw Performed By: #### 5 0608 #### [facility] [address] [place] [address], [place] PLAT CNT 131 10*3/uL Low 150-400 [facility] Comment on above: Order Comment: No: D o not add to previous draw Performed By: #### 5 0608 #### [facility] [address] [place] [address], [place] RBC (Bld) [#/Vol] 3.83 10*6/uL Low 4.20-5.70 [facility] Comment on above: Order Comment: No: D o not add to previous draw Performed By: #### 5 0608 #### [facility] [address] [place] [address], [place] WBC (Bld) [#/Vol] 5.22 10*3/uL Normal 4.00-10.60 [facility] Comment on above: Order Comment: No: D o not add to previous draw Performed By: #### 5 0608 #### [facility] [address] [place] [address], [facility] MAGNESIUM BLOODon 05-03-2022 Magnesium [Mass/Vol] 2.0 mg/dL Normal 1.9-2.7 [facility] Comment on above: Order Comment: Check Pacemaker/AICD Lead Position, Chest X-ray PA \EANDE\ LAT in Dept ;DO NOT lift affected arm above shoulder. S/P pacemaker/ICD implant. Verify lead placement Performed By: #### 4 1000, 61289, 09647 ####[facility] [place] [address], [facility] PHOSPHORUS BLOODon Phosphate [Mass/Vol] 2.2 mg/dL Low 2.5-5.0 [facility] Comment on above: Order Comment: Check Pacemaker/AICD Lead Position, Chest X-ray PA \EANDE\ LAT in Dept ;DO NOT lift affected arm above shoulder. S/P pacemaker/ICD implant. Verify lead placement Performed By: #### 4 1000, 11260, 81225 ####[facility] [place] [address], [facility] BASIC METABOLIC PANELon 04-09 Calcium [Mass/Vol] 7.8 mg/dL Low 8.6-10.3 [facility] Comment on above: Order Comment: No: D o not add to previous draw Performed By: #### 5 0103 #### [facility] [address] [place] [address], [facility] Chloride [Moles/Vol] 98 mmol/L Normal 98-107 [facility] Comment on above: Order Comment: No: D o not add to previous draw Performed By: #### 5 0103 #### [facility] [address] [place] [address], [facility] CO2 [Moles/Vol] 29 mmol/L Normal 21-31 [facility] Comment on above: Order Comment: No: D o not add to previous draw Performed By: #### 5 0103 #### [facility] [address] [place] [address], [facility] Creatinine [Mass/Vol] 2.26 mg/dL High 0.70-1.30 [facility] Comment on above: Order Comment: No: D o not add to previous draw Performed By: #### 5 0103 #### [facility] [address] [place] [address], [facility] EGFR 30 ml/min/1.73sq m Abnormal >60 [facility] Comment on above: Order Comment: No: D o not add to previous draw Result Comment: [facility]'s estimated glomerular filtration rate (eGFR) will [...] individuals. Performed By: #### 5 0103 #### [facility] [address] [place] [id number], [facility] Glucose [Mass/Vol] 91 mg/dL Normal 70-100 [facility] Comment on above: Order Comment: No: D o not add to previous draw Performed By: #### 5 0103 #### [facility] [address] [place] [address], [facility] Potassium [Moles/Vol] 3.5 mmol/L Normal 3.5-5.1 [facility] Comment on above: Order Comment: No: D o not add to previous draw Performed By: #### 5 0103 #### [facility] [address] [place] [address], [facility] Sodium [Moles/Vol] 135 mmol/L Low 136-145 [facility] Comment on above: Order Comment: No: D o not add to previous draw Performed By: #### 5 0103 #### [facility] [address] Urea nitrogen [Mass/Vol] 46 mg/dL High 7-25 [facility] Comment on above: Order Comment: No: D o not add to previous draw Performed By: #### 5 0103 #### [facility] [address] CBC COMPLETE BLOOD COUNTon 0 05-02-2022 Erythrocyte distribution width (RBC) [Ratio] 20.4 % High 11.5-15.0 [facility] Comment on above: Order Comment: No: D o not add to previous draw Performed By: #### 5 0608 #### [facility] [address] Hematocrit (Bld) [Volume fraction] 29.9 % Low 39.0-50.0 [facility] Comment on above: Order Comment: No: D o not add to previous draw Performed By: #### 5 0608 #### [facility] [address] Hemoglobin (Bld) [Mass/Vol] 8.9 g/dL Low 13.0-17.0 [facility] Comment on above: Order Comment: No: D o not add to previous draw Performed By: #### 5 0608 #### [facility] [address] [place] [address], [facility] MCH (RBC) [Entitic mass] 24.1 pg Low 27.0-33.0 [facility] Comment on above: Order Comment: No: D o not add to previous draw Performed By: #### 5 0608 #### [facility] [address] [place] [address], [facility] MCHC (RBC) [Mass/Vol] 29.8 g/dL Low 32.0-35.0 [facility] Comment on above: Order Comment: No: D o not add to previous draw Performed By: #### 5 0608 #### [facility] [address] [place] [address], [facility] MCV (RBC) [Entitic vol] 80.8 fL Low 82.0-98.0 [facility] Comment on above: Order Comment: No: D o not add to previous draw Performed By: #### 5 0608 #### [facility] [address] [place] [address], [facility] Nucleated RBC/100 WBC (Bld) [Ratio] 0 % Normal 0-0 [facility] Comment on above: Order Comment: No: D o not add to previous draw Performed By: #### 5 0608 #### [facility] [address] [address], [facility] PLAT CNT 130 10*3/uL Low 150-400 [facility] Comment on above: Order Comment: No: D o not add to previous draw Performed By: #### 5 0608 #### [facility] [address] [address], [facility] RBC (Bld) [#/Vol] 3.70 10*6/uL Low 4.20-5.70 [facility] Comment on above: Order Comment: No: D o not add to previous draw Performed By: #### 5 0608 #### [facility] [address] [address], [facility] WBC (Bld) [#/Vol] 4.68 10*3/uL Normal 4.00-10.60 [facility] Comment on above: Order Comment: No: D o not add to previous draw Performed By: #### 5 0608 #### [facility] [address] [facility] [place] [address], [facility] MAGNESIUM BLOODon 05-02-2022 Magnesium [Mass/Vol] 2.0 mg/dL Normal 1.9-2.7 [facility] Comment on above: Order Comment: No: D o not add to previous draw Performed By: #### 5 0103 #### [facility] [address] [place] [address], [facility] PHOSPHORUS BLOODon Phosphate [Mass/Vol] 2.5 mg/dL Normal 2.5-5.0 [facility] Comment on above: Order Comment: No: D o not add to previous draw Performed By: #### 5 0103 #### [facility] [address] [place] [address], [facility] BASIC METABOLIC PANELon 04-09 Calcium [Mass/Vol] 8.0 mg/dL Low 8.6-10.3 [facility] Comment on above: Order Comment: Check Pacemaker/AICD Lead Position, Chest X-ray PA \EANDE\ LAT in Dept ;DO NOT lift affected arm above shoulder. S/P pacemaker/ICD implant. Verify lead placement Performed By: #### 4 999, 26365, 01232 ####[facility] [place] [address], [facility] Chloride [Moles/Vol] 99 mmol/L Normal 98-107 [facility] Comment on above: Order Comment: Check Pacemaker/AICD Lead Position, Chest X-ray PA \EANDE\ LAT in Dept ;DO NOT lift affected arm above shoulder. S/P pacemaker/ICD implant. Verify lead placement Performed By: #### 4 999, 14419, 36956 ####[facility] [place] [address], [facility] CO2 [Moles/Vol] 31 mmol/L Normal 21-31 [facility] Comment on above: Order Comment: Check Pacemaker/AICD Lead Position, Chest X-ray PA \EANDE\ LAT in Dept ;DO NOT lift affected arm above shoulder. S/P pacemaker/ICD implant. Verify lead placement Performed By: #### 4 1000, 62436, 63688 ####[facility] [place] [address], [facility] Creatinine [Mass/Vol] 2.48 mg/dL High 0.70-1.30 [facility] Comment on above: Order Comment: Check Pacemaker/AICD Lead Position, Chest X-ray PA \EANDE\ LAT in Dept ;DO NOT lift affected arm above shoulder. S/P pacemaker/ICD implant. Verify lead placement Performed By: #### 4 999, 68283, 26758 ####[facility] EGFR 27 ml/min/1.73sq m Abnormal >60 [facility] Comment on above: Order Comment: Check Pacemaker/AICD Lead Position, Chest X-ray PA \EANDE\ LAT in Dept ;DO NOT lift affected arm above shoulder. S/P pacemaker/ICD implant. Verify lead placement Result Comment: [facility]'s estimated glomerular filtration rate (eGFR) will [...] of individuals. Performed By: #### 4 999, 21443, 63777 ####[facility] [facility] [place] [address], [facility] Glucose [Mass/Vol] 83 mg/dL Normal 70-100 [facility] Comment on above: Order Comment: Check Pacemaker/AICD Lead Position, Chest X-ray PA \EANDE\ LAT in Dept ;DO NOT lift affected arm above shoulder. S/P pacemaker/ICD implant. Verify lead placement Performed By: #### 4 999, 65214, 40386 ####[facility] [facility] [place] [address], [facility] Potassium [Moles/Vol] 3.5 mmol/L Normal 3.5-5.1 [facility] Comment on above: Order Comment: Check Pacemaker/AICD Lead Position, Chest X-ray PA \EANDE\ LAT in Dept ;DO NOT lift affected arm above shoulder. S/P pacemaker/ICD implant. Verify lead placement Performed By: #### 4 1000, 55167, 90965 ####[facility] [facility].[address] Sodium [Moles/Vol] 137 mmol/L Normal 136-145 [facility] Comment on above: Order Comment: Check Pacemaker/AICD Lead Position, Chest X-ray PA \EANDE\ LAT in Dept ;DO NOT lift affected arm above shoulder. S/P pacemaker/ICD implant. Verify lead placement Performed By: #### 4 1000, 99480, 65727 ####[facility] [facility].[address] Urea nitrogen [Mass/Vol] 49 mg/dL High 7-25 [facility] Comment on above: Order Comment: Check Pacemaker/AICD Lead Position, Chest X-ray PA \EANDE\ LAT in Dept ;DO NOT lift affected arm above shoulder. S/P pacemaker/ICD implant. Verify lead placement Performed By: #### 4 1000, 73757, 49043 ####[facility] CBC COMPLETE BLOOD COUNTon 0 - Erythrocyte distribution width (RBC) [Ratio] 20.6 % High 11.5-15.0 [facility] Comment on above: Order Comment: No: D o not add to previous draw Performed By: #### 5 0608 #### [facility] [address] [place] [address], [facility] Hematocrit (Bld) [Volume fraction] 28.9 % Low 39.0-50.0 [facility] Comment on above: Order Comment: No: D o not add to previous draw Performed By: #### 5 0608 #### [facility] [address] [place] [address], [facility] Hemoglobin (Bld) [Mass/Vol] 8.6 g/dL Low 13.0-17.0 [facility] Comment on above: Order Comment: No: D o not add to previous draw Performed By: #### 5 0608 #### [facility] [address] MCH (RBC) [Entitic mass] 24.1 pg Low 27.0-33.0 [facility] Comment on above: Order Comment: No: D o not add to previous draw Performed By: #### 5 0608 #### [facility] [address] MCHC (RBC) [Mass/Vol] 29.8 g/dL Low 32.0-35.0 [facility] Comment on above: Order Comment: No: D o not add to previous draw Performed By: #### 5 0608 #### [facility] [address] [facility] [place] [address], [facility] MCV (RBC) [Entitic vol] 81.0 fL Low 82.0-98.0 [facility] Comment on above: Order Comment: No: D o not add to previous draw Performed By: #### 5 0608 #### [facility] [address] Nucleated RBC/100 WBC (Bld) [Ratio] 0 % Normal 0-0 [facility] Comment on above: Order Comment: No: D o not add to previous draw Performed By: #### 5 0608 #### [facility] [address] [place] [address], [facility] PLAT CNT 130 10*3/uL Low 150-400 [facility] Comment on above: Order Comment: No: D o not add to previous draw Performed By: #### 5 0608 #### [facility] [address] [place] [address], [facility] RBC (Bld) [#/Vol] 3.57 10*6/uL Low 4.20-5.70 [facility] Comment on above: Order Comment: No: D o not add to previous draw Performed By: #### 5 0608 #### [facility] [address] [place] [address], [facility] WBC (Bld) [#/Vol] 4.33 10*3/uL Normal 4.00-10.60 [facility] Comment on above: Order Comment: No: D o not add to previous draw Performed By: #### 5 0608 #### [facility] [address] [place] [address], [facility] COOXIMETRYon 05-01-2022 COHB 2 % Normal [facility] Comment on above: Performed By: #### 7 0207 #### [facility] [address] [place] [address], [facility] METHB 1 % Normal [facility] Comment on above: Performed By: #### 7 0207 #### [facility] [address] [place] [address], [facility] Oxygen saturation in Blood 71.0 % Normal 65.0-75.0 [facility] Comment on above: Performed By: #### 7 0207 #### [facility] [address] [place] [address], [facility] THB 9.0 g/dL Normal [facility] Comment on above: Performed By: #### 7 0207 #### [facility] [address] [place] [address], [facility] MAGNESIUM BLOODon 05-01-2022 Magnesium [Mass/Vol] 2.1 mg/dL Normal 1.9-2.7 [facility] Comment on above: Order Comment: Check Pacemaker/AICD Lead Position, Chest X-ray PA \EANDE\ LAT in Dept ;DO NOT lift affected arm above shoulder. S/P pacemaker/ICD implant. Verify lead placement Performed By: #### 4 1000, 04971, 21426 ####[facility] [place] [address], [facility] PHOSPHORUS BLOODon Phosphate [Mass/Vol] 3.6 mg/dL Normal 2.5-5.0 [facility] Comment on above: Order Comment: Check Pacemaker/AICD Lead Position, Chest X-ray PA \EANDE\ LAT in Dept ;DO NOT lift affected arm above shoulder. S/P pacemaker/ICD implant. Verify lead placement Performed By: #### 4 1000, 56176, 66557 ####[place] [id number] [place], [place] [id number] [place] [address] PORTABLE CHEST 1 VIEWon 04-09 PORTABLE CHEST 1 VIEW [facility] Department of Radiology [address] [place] [address] Patient Name: MAN PATEL : 1950 Sex: M Age: Race: White Pt. Location: [place] [address] Patient Status: I Ordered Date: 05/01/2022 10:35:00 [...] obtained. COMPARISON: Chest radiograph dated 08/01/2021 FINDINGS: Success-Eleazar catheter placed via right internal jugular approach has tip in the right pulmonary artery. Dual-chamber pacemaker placed left subclavian approach. Moderate cardiomegaly. Moderate CHF. No pleural effusion. No pneumothorax. IMPRESSION: Moderate cardiomegaly. Moderate CHF. Electronically signed: Aldo [place]. Transcribed by: [email or web address], User Resident: Electronically Signed by: ALDO MONTANA @ 05/01/2022 11:16 AM Normal [facility] Comment on above: Order Comment: Check Line Position *BLOOD CULTUREon 04-30-2022 *BLOOD CULTURE Clinical Report: (D) Specimen: BLOOD CULTURE Collected: 04/29/2022 23:47 Status: Final Last Updated: 05/05/2022 06:59 CULT RES (Final) No Growth Day 5 Normal [facility] Comment on above: Performed By: #### 3 0313 ####[facility] *BLOOD CULTURE Clinical Report: (D) Specimen: BLOOD CULTURE Collected: 04/29/2022 23:43 Status: Final Last Updated: 05/05/2022 06:59 CULT RES (Final) No Growth Day 5 Normal [facility] Comment on above: Performed By: #### 3 0313 #### [facility] [address] BASIC METABOLIC PANELon 04-09 Calcium [Mass/Vol] 8.0 mg/dL Low 8.6-10.3 [facility] Comment on above: Order Comment: No: D o not add to previous draw Performed By: #### 4 5506, 23977, 77428, 52765 ####[facility] Chloride [Moles/Vol] 100 mmol/L Normal 98-107 [facility] Comment on above: Order Comment: No: D o not add to previous draw Performed By: #### 4 5506, 52847, 79022, 18892 ####[facility] [place] [address], [facility] CO2 [Moles/Vol] 31 mmol/L Normal 21-31 [facility] Comment on above: Order Comment: No: D o not add to previous draw Performed By: #### 4 5506, 03639, 64819, 52300 ####[facility] [place] [address], [facility] Creatinine [Mass/Vol] 2.53 mg/dL High 0.70-1.30 [facility] Comment on above: Order Comment: No: D o not add to previous draw Performed By: #### 4 5506, 74729, 49038, 81251 ####[facility] [facility].[address] EGFR 27 ml/min/1.73sq m Abnormal >60 [facility] Comment on above: Order Comment: No: D o not add to previous draw Result Comment: [facility]'s estimated glomerular filtration rate (eGFR) will [...] of individuals. Performed By: #### 4 5506, 23937, 66048, 31648 ####[facility] [facility] [place] [address], [facility] Glucose [Mass/Vol] 94 mg/dL Normal 70-100 [facility] Comment on above: Order Comment: No: D o not add to previous draw Performed By: #### 4 5506, 29359, 77786, 66871 ####[facility] Potassium [Moles/Vol] 3.5 mmol/L Normal 3.5-5.1 [facility] Comment on above: Order Comment: No: D o not add to previous draw Performed By: #### 4 5506, 02631, 60793, 08935 ####[facility] [place] [address], [facility] Sodium [Moles/Vol] 139 mmol/L Normal 136-145 [facility] Comment on above: Order Comment: No: D o not add to previous draw Performed By: #### 4 5506, 28687, 82744, 42529 ####[facility] [facility].[address] Urea nitrogen [Mass/Vol] 49 mg/dL High 7-25 [facility] Comment on above: Order Comment: No: D o not add to previous draw Performed By: #### 4 5506, 41378, 26509, 59512 ####[facility] [facility].[address] CBC COMPLETE BLOOD COUNTon 0 - Erythrocyte distribution width (RBC) [Ratio] 20.8 % High 11.5-15.0 [facility] Comment on above: Order Comment: No: D o not add to previous draw Performed By: #### 5 0608 #### [facility] [address] [place] [address], [facility] Hematocrit (Bld) [Volume fraction] 28.3 % Low 39.0-50.0 [facility] Comment on above: Order Comment: No: D o not add to previous draw Performed By: #### 5 0608 #### [facility] [address] [place] [address], [facility] Hemoglobin (Bld) [Mass/Vol] 8.5 g/dL Low 13.0-17.0 [facility] Comment on above: Order Comment: No: D o not add to previous draw Performed By: #### 5 0608 #### [facility] [address] [place] [address], [facility] MCH (RBC) [Entitic mass] 24.3 pg Low 27.0-33.0 [facility] Comment on above: Order Comment: No: D o not add to previous draw Performed By: #### 5 0608 #### [facility] [address] [place] [id number], [facility] MCHC (RBC) [Mass/Vol] 30.0 g/dL Low 32.0-35.0 [facility] Comment on above: Order Comment: No: D o not add to previous draw Performed By: #### 5 0608 #### [facility] [address] [place] [address], [facility] MCV (RBC) [Entitic vol] 80.9 fL Low 82.0-98.0 [facility] Comment on above: Order Comment: No: D o not add to previous draw Performed By: #### 5 0608 #### [facility] [address] [place] [address], [facility] Nucleated RBC/100 WBC (Bld) [Ratio] 0 % Normal 0-0 [facility] Comment on above: Order Comment: No: D o not add to previous draw Performed By: #### 5 0608 #### [facility] [address] [place] [address], [facility] PLAT CNT 139 10*3/uL Low 150-400 [facility] Comment on above: Order Comment: No: D o not add to previous draw Performed By: #### 5 0608 #### [facility] [address] [place] [address], [facility] RBC (Bld) [#/Vol] 3.50 10*6/uL Low 4.20-5.70 [facility] Comment on above: Order Comment: No: D o not add to previous draw Performed By: #### 5 0608 #### [facility] [address] [place] [address], [facility] WBC (Bld) [#/Vol] 4.28 10*3/uL Normal 4.00-10.60 [facility] Comment on above: Order Comment: No: D o not add to previous draw Performed By: #### 5 0608 #### [facility] [address] [place] [address], [facility] COOXIMETRYon 04-30-2022 COHB 2 % Normal [facility] Comment on above: Performed By: #### 3 0313 #### [facility] [address] [place] [address], [facility] METHB 1 % Normal [facility] Comment on above: Performed By: #### 3 0313 #### [facility] [address] [place], [place] [id number] [place] [address] Oxygen saturation in Blood 69.0 % Normal 65.0-75.0 [facility] Comment on above: Performed By: #### 3 0313 #### [facility] [address] [place] [address], [facility] THB 12.0 g/dL Normal [facility] Comment on above: Performed By: #### 3 0313 #### [facility] [address] Cardiovascular Lab Reporton 04-30-2022 Cardiovascular Lab Report [facility] Patient Name: [facility] Man Ace MR #: [id number] Department of Physician: Fidel Flowers M.D. Division of Service Date: 04/29/2022 Cardiology Birthdate: 1950 Adult Cardiovascular Room #: KASANDRA [id number] [facility] [address] [place] [address] Cardiovascular Laboratory Report CLINICAL PRESENTATION: The patient is a 72-year-old male with past medical history significant for CAD, status post CABG, heart failure with EF 40%, CKD with acute kidney injury, atrial fibrillation on Eliquis, pacemaker, and hypertension. The patient was admitted with shortness of breath and lower extremity edema concerning for [id number] systolic heart failure. He has worsening renal [...] Given worsening renal function, we will place Success-Eleazar catheter for invasive hemodynamic monitoring in the ICU. The patient will likely require milrinone inotrope therapy. 2. Remainder of plan per Cardiology Service. 3. There was tracing of severe V-waves, which could be seen in mitral regurgitation. Correlation with echocardiogram is recommended. PROCEDURES: Right heart catheterization, ultrasound guidance for vascular access. INDICATION: [id number] systolic heart failure. PROCEDURE DESCRIPTION: The patient [...] ultrasound guidance and micropuncture access technique, a 6-Swiss sheath was placed in the right internal [...] renal function, we agreed to place a Success-Eleazar catheter for monitoring in the ICU. Next, using a wire, I exchanged the sheath to an 8-Swiss Cordis sheath. This was sutured to the skin. Next, I advanced Alarcon [employer] Success-Eleazar catheter to the pulmonary artery position. The [...] Red M.D. Date Trans: 04/30/2022 10:29 A/surekha [id number] cc: Li Cintron M.D. Heart Failure/ Transplant Mailstop [address] [place] [address] Normal [facility] MAGNESIUM BLOODon 04-30-2022 Magnesium [Mass/Vol] 2.3 mg/dL Normal 1.9-2.7 [facility] Comment on above: Order Comment: No: D o not add to previous draw Performed By: #### 4 9906, 85207, 49668, 38366 ####[facility] [facility].[address] PHOSPHORUS BLOODon Phosphate [Mass/Vol] 4.1 mg/dL Normal 2.5-5.0 [facility] Comment on above: Performed By: #### 4 8316, 33146, 60589, 96948 ####[facility] [facility].[address] URIC ACID BLOODon 04-30-2022 Urate [Mass/Vol] 13.5 mg/dL High 4.4-7.6 [facility] Comment on above: Performed By: #### 4 6156, 86473, 70795, 40679 ####[facility] [place] [address], [facility] BASIC METABOLIC PANELon 08-2 -2021 Calcium [Mass/Vol] 8.4 mg/dL Low 8.6-10.3 [facility] Comment on above: Order Comment: No: D o not add to previous draw Performed By: #### 3 0313 #### [facility] [address] [place] [address], [place] Chloride [Moles/Vol] 100 mmol/L Normal 98-107 [facility] Comment on above: Order Comment: No: D o not add to previous draw Performed By: #### 3 0313 #### [facility] [address] [place] [address], [facility] CO2 [Moles/Vol] 30 mmol/L Normal 21-31 [facility] Comment on above: Order Comment: No: D o not add to previous draw Performed By: #### 3 0313 #### [facility] [address] [place] [address], [place] Creatinine [Mass/Vol] 2.09 mg/dL High 0.70-1.30 [facility] Comment on above: Order Comment: No: D o not add to previous draw Performed By: #### 3 0313 #### [facility] [address] [place] [address], [facility] EGFR 33 ml/min/1.73sq m Abnormal >60 [facility] Comment on above: Order Comment: No: D o not add to previous draw Result Comment: [facility]'s estimated glomerular filtration rate (eGFR) will [...] individuals. Performed By: #### 3 0313 #### [facility] [address] [place] [address], [place] Glucose [Mass/Vol] 96 mg/dL Normal 70-100 [facility] Comment on above: Order Comment: No: D o not add to previous draw Performed By: #### 3 0313 #### [facility] [address] [place] [address], [place] Potassium [Moles/Vol] 4.0 mmol/L Normal 3.5-5.1 [facility] Comment on above: Order Comment: No: D o not add to previous draw Performed By: #### 3 0313 #### [facility] [address] [place] [address], [place] Sodium [Moles/Vol] 138 mmol/L Normal 136-145 [facility] Comment on above: Order Comment: No: D o not add to previous draw Performed By: #### 3 0313 #### [facility] [address] [place] [address], [facility] Urea nitrogen [Mass/Vol] 48 mg/dL High 7-25 [facility] Comment on above: Order Comment: No: D o not add to previous draw Performed By: #### 3 0313 #### [facility] [address] [place] [address], [place] CBC COMPLETE BLOOD COUNTon 0 - Erythrocyte distribution width (RBC) [Ratio] 20.6 % High 11.5-15.0 [facility] Comment on above: Order Comment: No: D o not add to previous draw Performed By: #### 5 0608 ####[facility] [place] [address], [place] Hematocrit (Bld) [Volume fraction] 31.0 % Low 39.0-50.0 [facility] Comment on above: Order Comment: No: D o not add to previous draw Performed By: #### 5 0608 ####[facility] [facility].[address] Hemoglobin (Bld) [Mass/Vol] 8.9 g/dL Low 13.0-17.0 [facility] Comment on above: Order Comment: No: D o not add to previous draw Performed By: #### 5 0608 ####[facility] [facility].[address] MCH (RBC) [Entitic mass] 23.1 pg Low 27.0-33.0 [facility] Comment on above: Order Comment: No: D o not add to previous draw Performed By: #### 5 0608 ####[address] MCHC (RBC) [Mass/Vol] 28.7 g/dL Low 32.0-35.0 [facility] Comment on above: Order Comment: No: D o not add to previous draw Performed By: #### 5 0608 ####[facility] [facility].[address] MCV (RBC) [Entitic vol] 80.5 fL Low 82.0-98.0 [facility] Comment on above: Order Comment: No: D o not add to previous draw Performed By: #### 5 0608 ####[address] Nucleated RBC/100 WBC (Bld) [Ratio] 0 % Normal 0-0 [facility] Comment on above: Order Comment: No: D o not add to previous draw Performed By: #### 5 0608 ####[facility] [place] [address].[address] PLAT CNT 145 10*3/uL Low 150-400 [facility] Comment on above: Order Comment: No: D o not add to previous draw Performed By: #### 5 0608 ####[address] [place] [address], [facility] RBC (Bld) [#/Vol] 3.85 10*6/uL Low 4.20-5.70 [facility] Comment on above: Order Comment: No: D o not add to previous draw Performed By: #### 5 0608 ####[facility] [id number], [facility] WBC (Bld) [#/Vol] 5.00 10*3/uL Normal 4.00-10.60 [facility] Comment on above: Order Comment: No: D o not add to previous draw Performed By: #### 5 0608 ####[facility] [place] [address], [facility] COOXIMETRYon 04-29-2022 COHB 3 % Normal [facility] Comment on above: Performed By: #### 5 0103 #### [facility] [address] [address], [facility] METHB 1 % Normal [facility] Comment on above: Performed By: #### 5 0103 #### [facility] [address] [address], [facility] Oxygen saturation in Blood 74.0 % Normal 65.0-75.0 [facility] Comment on above: Performed By: #### 5 0103 #### [facility] [address] [place] [address], [facility] THB 8.4 g/dL Normal [facility] Comment on above: Performed By: #### 5 0103 #### [facility] [address] [place] [id number], [facility] MAGNESIUM BLOODon 04-29-2022 Magnesium [Mass/Vol] 2.3 mg/dL Normal 1.9-2.7 [facility] Comment on above: Order Comment: No: D o not add to previous draw Performed By: #### 3 0313 #### [facility] [address] BASIC METABOLIC PANELon 08-2 Calcium [Mass/Vol] 8.3 mg/dL Low 8.6-10.3 [facility] Comment on above: Order Comment: No: D o not add to previous draw Performed By: #### 0 0071, 52737, 17014 ####[facility] [place] [address], [facility] Chloride [Moles/Vol] 100 mmol/L Normal 98-107 [facility] Comment on above: Order Comment: No: D o not add to previous draw Performed By: #### 0 0071, 08621, 89467 ####[facility] [place] [address], [facility] CO2 [Moles/Vol] 29 mmol/L Normal 21-31 [facility] Comment on above: Order Comment: No: D o not add to previous draw Performed By: #### 0 0071, 72158, 68770 ####[facility] Creatinine [Mass/Vol] 2.51 mg/dL High 0.70-1.30 [facility] Comment on above: Order Comment: No: D o not add to previous draw Performed By: #### 0 0071, 17676, 95959 ####[facility] [facility].[address] EGFR 27 ml/min/1.73sq m Abnormal >60 [facility] Comment on above: Order Comment: No: D o not add to previous draw Result Comment: [facility]'s estimated glomerular filtration rate (eGFR) will [...] of individuals. Performed By: #### 0 0071, 42311, 34907 ####[facility] [place] [address], [facility] Glucose [Mass/Vol] 98 mg/dL Normal 70-100 [facility] Comment on above: Order Comment: No: D o not add to previous draw Performed By: #### 0 007, 04225, 16948 ####[facility] [place] [address], [facility] Potassium [Moles/Vol] 3.9 mmol/L Normal 3.5-5.1 [facility] Comment on above: Order Comment: No: D o not add to previous draw Performed By: #### 0 70, , 77873 ####[facility] [place] [address], [facility] Sodium [Moles/Vol] 138 mmol/L Normal 136-145 [facility] Comment on above: Order Comment: No: D o not add to previous draw Performed By: #### 0 70, , 18932 ####[facility] [place] [address], [facility] Urea nitrogen [Mass/Vol] 55 mg/dL High 7-25 [facility] Comment on above: Order Comment: No: D o not add to previous draw Performed By: #### 0 0071, 82514, 60931 ####[facility] CBC COMPLETE BLOOD COUNTon 0 - Erythrocyte distribution width (RBC) [Ratio] 20.2 % High 11.5-15.0 [facility] Comment on above: Order Comment: No: D o not add to previous draw Performed By: #### 5 0608 ####[facility] Hematocrit (Bld) [Volume fraction] 28.9 % Low 39.0-50.0 [facility] Comment on above: Order Comment: No: D o not add to previous draw Performed By: #### 5 0608 ####[address] Hemoglobin (Bld) [Mass/Vol] 8.7 g/dL Low 13.0-17.0 [facility] Comment on above: Order Comment: No: D o not add to previous draw Performed By: #### 5 0608 ####[address] MCH (RBC) [Entitic mass] 24.0 pg Low 27.0-33.0 [facility] Comment on above: Order Comment: No: D o not add to previous draw Performed By: #### 5 0608 ####[address] MCHC (RBC) [Mass/Vol] 30.1 g/dL Low 32.0-35.0 [facility] Comment on above: Order Comment: No: D o not add to previous draw Performed By: #### 5 0608 ####[address] MCV (RBC) [Entitic vol] 79.6 fL Low 82.0-98.0 [facility] Comment on above: Order Comment: No: D o not add to previous draw Performed By: #### 5 0608 ####[address] Nucleated RBC/100 WBC (Bld) [Ratio] 0 % Normal 0-0 [facility] Comment on above: Order Comment: No: D o not add to previous draw Performed By: #### 5 0608 ####[address] [place] [address], [place] PLAT CNT 162 10*3/uL Normal 150-400 [facility] Comment on above: Order Comment: No: D o not add to previous draw Performed By: #### 5 0608 ####[facility] RBC (Bld) [#/Vol] 3.63 10*6/uL Low 4.20-5.70 [facility] Comment on above: Order Comment: No: D o not add to previous draw Performed By: #### 5 0608 ####[facility] [place] [address], [facility] WBC (Bld) [#/Vol] 6.21 10*3/uL Normal 4.00-10.60 [facility] Comment on above: Order Comment: No: D o not add to previous draw Performed By: #### 5 0608 ####[facility] LIPID PROFILEon 04-28-2022 Cholesterol [Mass/Vol] 92 mg/dL Low 120-200 [facility] Comment on above: Order Comment: Yes: Add to Previous draw if able Result Comment: CHOL ESTEROL REFERENCE RANGE: 20 YEARS AND OLDER CARDIOVASCULAR RISK Less than 200 mg/dl Low Risk 200 to 239 mg/dl Borderline Risk 240 mg/dl and greater High Risk Performed By: #### 0 0071, 70118, 13979 ####[facility] [facility].[address] Cholesterol in HDL [Mass/Vol] 37 mg/dL Normal 23-92 [facility] Comment on above: Order Comment: Yes: Add to Previous draw if able Result Comment: Slig ht variation in normal range could be due to gender and/or age. HDL CHOLESTEROL REFERENCE RANGE: 20 years and older Cardiovascular Risk > or =60 mg/dL Desirable 40 TO 59 mg/dL Low Risk <40 mg/dL High Risk Performed By: #### 0 0071, 78811, 44936 ####[facility] [place] [address], [facility] Cholesterol in LDL [Mass/Vol] 47 mg/dL Normal 0-130 [facility] Comment on above: Order Comment: Yes: Add to Previous draw if able Result Comment: LDL IS A CALCULATION LDL IS ONLY VALID IF THE TRIG IS LESS THAN 400. Performed By: #### 0 0071, 91491, 39180 ####[facility] [place] [address], [facility] Cholesterol.total/Chol esterol in HDL [Mass ratio] 2.5 {ratio} Normal .0-4.5 [facility] Comment on above: Order Comment: Yes: Add to Previous draw if able Performed By: #### 0 0071, 75803, 66896 ####[facility] NON-HDL CHOLESTEROL 55 mg/dL Normal [facility] Comment on above: Order Comment: Yes: Add to Previous draw if able Performed By: #### 0 0071, 67015, 88302 ####[facility] [facility] [place] [address], [facility] Triglyceride [Mass/Vol] 40 mg/dL Normal 40-149 [facility] Comment on above: Order Comment: Yes: Add to Previous draw if able Result Comment: TRIG LYCERIDE REFERENCE RANGE: 20 YEARS AND OLDER CARDIOVASCULAR RISK LESS THAN 150 mg/dl LOW RISK 150 TO 199 mg/dl BORDERLINE RISK 200 mg/dl AND GREATER HIGH RISK Performed By: #### 0 0071, 42505, 93558 ####[facility] [place] [address], [facility] VLDL CHOL 8 mg/dL Normal 0-40 [facility] Comment on above: Order Comment: Yes: Add to Previous draw if able Performed By: #### 0 0071, 08308, 28439 ####[facility] [place] [address], [facility] MAGNESIUM BLOODon 04-28-2022 Magnesium [Mass/Vol] 2.4 mg/dL Normal 1.9-2.7 [facility] Comment on above: Order Comment: No: D o not add to previous draw Performed By: #### 0 0071, 81270, 00374 ####[facility] [place] [address], [facility] BASIC METABOLIC PANELon 04-09 Calcium [Mass/Vol] 8.4 mg/dL Low 8.6-10.3 [facility] Comment on above: Order Comment: No: D o not add to previous draw Performed By: #### 7 0207 #### [facility] [address] [place] [address], [place] Chloride [Moles/Vol] 100 mmol/L Normal 98-107 [facility] Comment on above: Order Comment: No: D o not add to previous draw Performed By: #### 7 0207 #### [facility] [address] [place] [address], [place] CO2 [Moles/Vol] 27 mmol/L Normal 21-31 [facility] Comment on above: Order Comment: No: D o not add to previous draw Performed By: #### 7 0207 #### [facility] [address] [place] [address], [place] Creatinine [Mass/Vol] 2.46 mg/dL High 0.70-1.30 [facility] Comment on above: Order Comment: No: D o not add to previous draw Performed By: #### 7 0207 #### [facility] [address] [place] [address], [facility] EGFR 27 ml/min/1.73sq m Abnormal >60 [facility] Comment on above: Order Comment: No: D o not add to previous draw Result Comment: [facility]'s estimated glomerular filtration rate (eGFR) will [...] individuals. Performed By: #### 7 0207 #### [facility] [address] [place] [address], [facility] Glucose [Mass/Vol] 96 mg/dL Normal 70-100 [facility] Comment on above: Order Comment: No: D o not add to previous draw Performed By: #### 7 0207 #### [facility] [address] [place] [address], [facility] Potassium [Moles/Vol] 3.8 mmol/L Normal 3.5-5.1 [facility] Comment on above: Order Comment: No: D o not add to previous draw Performed By: #### 7 0207 #### [facility] [address] [place] [address], [place] Sodium [Moles/Vol] 136 mmol/L Normal 136-145 [facility] Comment on above: Order Comment: No: D o not add to previous draw Performed By: #### 7 0207 #### [facility] [address] [place] [address], [facility] Urea nitrogen [Mass/Vol] 57 mg/dL High 7-25 [facility] Comment on above: Order Comment: No: D o not add to previous draw Performed By: #### 7 0207 #### [facility] [address] [place] [address], [facility] BASIC METABOLIC PANELon 04-08 Calcium [Mass/Vol] 8.7 mg/dL Normal 8.6-10.3 [facility] Comment on above: Order Comment: No: D o not add to previous draw Performed By: #### 3 0313 #### [facility] [address] [place] [address], [place] Chloride [Moles/Vol] 100 mmol/L Normal 98-107 [facility] Comment on above: Order Comment: No: D o not add to previous draw Performed By: #### 3 0313 #### [facility] [address] [place] [address], [place] CO2 [Moles/Vol] 26 mmol/L Normal 21-31 [facility] Comment on above: Order Comment: No: D o not add to previous draw Performed By: #### 3 0313 #### [facility] [address] [place] [address], [facility] Creatinine [Mass/Vol] 2.63 mg/dL High 0.70-1.30 [facility] Comment on above: Order Comment: No: D o not add to previous draw Performed By: #### 3 0313 #### [facility] [address] [place] [address], [facility] EGFR 25 ml/min/1.73sq m Abnormal >60 [facility] Comment on above: Order Comment: No: D o not add to previous draw Result Comment: [facility]'s estimated glomerular filtration rate (eGFR) will [...] individuals. Performed By: #### 3 0313 #### [facility] [address] [place] [address], [place] Glucose [Mass/Vol] 101 mg/dL High 70-100 [facility] Comment on above: Order Comment: No: D o not add to previous draw Performed By: #### 3 0313 #### [facility] [address] [facility] Potassium [Moles/Vol] 4.3 mmol/L Normal 3.5-5.1 [facility] Comment on above: Order Comment: No: D o not add to previous draw Performed By: #### 3 0313 #### [facility] [address] [facility] Sodium [Moles/Vol] 136 mmol/L Normal 136-145 [facility] Comment on above: Order Comment: No: D o not add to previous draw Performed By: #### 3 3 #### [facility] [address] Urea nitrogen [Mass/Vol] 57 mg/dL High 7-25 [facility] Comment on above: Order Comment: No: D o not add to previous draw Performed By: #### 3 3 #### [facility] [address] CBC W/DIFFon 04-26-2022 ABS IMM GRANS 0.0 10*3/uL Normal 0.0-0.2 [facility] Comment on above: Order Comment: No: D o not add to previous draw Performed By: #### 5 102 #### [facility] [address] [facility]. [address] ABS NEUTROPHILS 5.2 10*3/uL Normal 1.6-7.6 [facility] Comment on above: Order Comment: No: D o not add to previous draw Performed By: #### 5 3 #### [facility] [address] [facility] [place] [address], [facility] Basophils (Bld) [#/Vol] 0.0 10*3/uL Normal 0.0-0.2 [facility] Comment on above: Order Comment: No: D o not add to previous draw Performed By: #### 5 0103 #### [facility] [address] [place] [address], [facility] Basophils/100 WBC (Bld) 0.6 % Normal 0.0-1.0 [facility] Comment on above: Order Comment: No: D o not add to previous draw Performed By: #### 5 0103 #### [facility] [address] [place] [address], [facility] Eosinophils (Bld) [#/Vol] 0.2 10*3/uL Normal 0.0-0.5 [facility] Comment on above: Order Comment: No: D o not add to previous draw Performed By: #### 5 0103 #### [facility] [address] [place] [address], [facility] Eosinophils/100 WBC (Bld) 3.4 % Normal 0.0-6.0 [facility] Comment on above: Order Comment: No: D o not add to previous draw Performed By: #### 5 0103 #### [facility] [address] [place] [address], [facility] Erythrocyte distribution width (RBC) [Ratio] 19.9 % High 11.5-15.0 [facility] Comment on above: Order Comment: No: D o not add to previous draw Performed By: #### 5 3 #### [facility] [address] [facility] [place] [id number], [facility] Hematocrit (Bld) [Volume fraction] 30.2 % Low 39.0-50.0 [facility] Comment on above: Order Comment: No: D o not add to previous draw Performed By: #### 5 0103 #### [facility] [address] [place] [id number], [facility] Hemoglobin (Bld) [Mass/Vol] 9.0 g/dL Low 13.0-17.0 [facility] Comment on above: Order Comment: No: D o not add to previous draw Performed By: #### 5 0103 #### [facility] [address] [place] [address], [facility] IMMATURE GRANS 0.2 % Normal 0.0-1.0 [facility] Comment on above: Order Comment: No: D o not add to previous draw Performed By: #### 5 0103 #### [facility] [address] [place] [id number], [facility] Lymphocytes (Bld) [#/Vol] 0.4 10*3/uL Low 1.2-4.0 [facility] Comment on above: Order Comment: No: D o not add to previous draw Performed By: #### 5 3 #### [facility] [address] [facility] [address], [facility] Lymphocytes/100 WBC (Bld) 6.6 % Low 20.0-45.0 [facility] Comment on above: Order Comment: No: D o not add to previous draw Performed By: #### 5 0103 #### [facility] [address] [facility] [address], [facility] MCH (RBC) [Entitic mass] 23.4 pg Low 27.0-33.0 [facility] Comment on above: Order Comment: No: D o not add to previous draw Performed By: #### 5 3 #### [facility] [address] [facility] [place] [id number], [facility] MCHC (RBC) [Mass/Vol] 29.8 g/dL Low 32.0-35.0 [facility] Comment on above: Order Comment: No: D o not add to previous draw Performed By: #### 5 0103 #### [facility] [address] [facility] [address], [facility] MCV (RBC) [Entitic vol] 78.4 fL Low 82.0-98.0 [facility] Comment on above: Order Comment: No: D o not add to previous draw Performed By: #### 5 3 #### [facility] [address] [place] [address], [facility] Monocytes (Bld) [#/Vol] 0.7 10*3/uL Normal 0.1-1.0 [facility] Comment on above: Order Comment: No: D o not add to previous draw Performed By: #### 5 0103 #### [facility] [address] [place] [address], [facility] MONOS 10.3 % Normal 5.0-12.0 [facility] Comment on above: Order Comment: No: D o not add to previous draw Performed By: #### 5 0103 #### [facility] [address] [place] [address], [facility] Neutrophils/100 WBC (Bld) 78.9 % High 40.0-72.0 [facility] Comment on above: Order Comment: No: D o not add to previous draw Performed By: #### 5 0103 #### [facility] [address] [place] [address], [facility] Nucleated RBC/100 WBC (Bld) [Ratio] 0 % Normal 0-0 [facility] Comment on above: Order Comment: No: D o not add to previous draw Performed By: #### 5 0103 #### [facility] [address] [facility] [place] [address], [place] PLAT CNT 196 10*3/uL Normal 150-400 [facility] Comment on above: Order Comment: No: D o not add to previous draw Performed By: #### 5 0103 #### [facility] [address] [facility] [place] [address], [facility] RBC (Bld) [#/Vol] 3.85 10*6/uL Low 4.20-5.70 [facility] Comment on above: Order Comment: No: D o not add to previous draw Performed By: #### 5 3 #### [facility] [address] [place] [address], [facility] WBC (Bld) [#/Vol] 6.52 10*3/uL Normal 4.00-10.60 [facility] Comment on above: Order Comment: No: D o not add to previous draw Performed By: #### 5 0103 #### [facility] [address] [place] [address], [facility] HEMOGLOBIN A1Con 04-26-2022 Glucose [Moles/Vol] 111 mmol/L Normal [facility] Comment on above: Order Comment: Check Pacemaker/AICD Lead Position, Chest X-ray PA \EANDE\ LAT in Dept ;DO NOT lift affected arm above shoulder. S/P pacemaker/ICD implant. Verify lead placement Performed By: #### 3 1791 ####[facility] [facility].[address] HbA1c (Bld) [Mass fraction] 5.5 % Normal 4.0-6.0 [facility] Comment on above: Order Comment: Check Pacemaker/AICD Lead Position, Chest X-ray PA \EANDE\ LAT in Dept ;DO NOT lift affected arm above shoulder. S/P pacemaker/ICD implant. Verify lead placement Performed By: #### 3 1791 ####[facility] [facility].[address] MAGNESIUM BLOODon 04-26-2022 Magnesium [Mass/Vol] 2.6 mg/dL Normal 1.9-2.7 [facility] Comment on above: Order Comment: No: D o not add to previous draw Performed By: #### 3 0313 #### [facility] [address] [place] [address], [facility] APTTon 04-25-2022 aPTT Coag (Bld) [Time] 49.8 s High 25.0-35.0 [facility] Comment on above: Order Comment: [...] PURPOSE. Performed By: #### 5 0103 #### [facility] [address] [place] [address], [facility] BASIC METABOLIC PANELon 04-08 Calcium [Mass/Vol] 8.8 mg/dL Normal 8.6-10.3 [facility] Comment on above: Order Comment: No: D o not add to previous draw Performed By: #### 3 2044 #### [facility] [address] [place] [address], [facility] Chloride [Moles/Vol] 100 mmol/L Normal 98-107 [facility] Comment on above: Order Comment: No: D o not add to previous draw Performed By: #### 3 2044 #### [facility] [address] [place] [address], [facility] CO2 [Moles/Vol] 27 mmol/L Normal 21-31 [facility] Comment on above: Order Comment: No: D o not add to previous draw Performed By: #### 3 2044 #### [facility] [address] [place] [address], [facility] Creatinine [Mass/Vol] 2.82 mg/dL High 0.70-1.30 [facility] Comment on above: Order Comment: No: D o not add to previous draw Performed By: #### 3 2044 #### [facility] [address] [place] [address], [facility] EGFR 23 ml/min/1.73sq m Abnormal >60 [facility] Comment on above: Order Comment: No: D o not add to previous draw Result Comment: [facility]'s estimated glomerular filtration rate (eGFR) will [...] individuals. Performed By: #### 3 2044 #### [facility] [address] [place] [address], [facility] Glucose [Mass/Vol] 114 mg/dL High 70-100 [facility] Comment on above: Order Comment: No: D o not add to previous draw Performed By: #### 3 2044 #### [facility] [address] [place] [address], [place] Potassium [Moles/Vol] 4.4 mmol/L Normal 3.5-5.1 [facility] Comment on above: Order Comment: No: D o not add to previous draw Performed By: #### 3 2044 #### [facility] [address] [place] [address], [place] Sodium [Moles/Vol] 137 mmol/L Normal 136-145 [facility] Comment on above: Order Comment: No: D o not add to previous draw Performed By: #### 3 2044 #### [facility] [address] [place] [address], [facility] Urea nitrogen [Mass/Vol] 61 mg/dL High 7-25 [facility] Comment on above: Order Comment: No: D o not add to previous draw Performed By: #### 3 2044 #### [facility] [address] [place] [address], [place] BNP (B-TYPE NATRIURETIC PEPT ANH)on 04-25-2022 Natriuretic peptide B (Bld) [Mass/Vol] 1813 pg/mL High 0-100 [facility] Comment on above: Order Comment: Yes: Add to Previous draw if able Result Comment: Give n the appropriate clinical setting a BNP result of >100 pg/mL indicates congestive heart failure. Performed By: #### 3 2044 #### [facility] [address] [facility] [place] [address], [facility] C REACTIVE PROTEINon 022 CRP [Mass/Vol] 17.2 mg/L High 0.0-7.0 [facility] Comment on above: Order Comment: No: D o not add to previous draw Performed By: #### 5 0103 #### [facility] [address] [facility] [place] [address], [facility] CBC W/DIFFon 04-25-2022 ABS IMM GRANS 0.0 10*3/uL Normal 0.0-0.2 [facility] Comment on above: Performed By: #### 5 0103 #### [facility] [address] [place] [address], [facility] ABS NEUTROPHILS 5.4 10*3/uL Normal 1.6-7.6 [facility] Comment on above: Performed By: #### 5 0103 #### [facility] [address] [facility] [place] [address], [facility] Basophils (Bld) [#/Vol] 0.0 10*3/uL Normal 0.0-0.2 [facility] Comment on above: Performed By: #### 5 0103 #### [facility] [address] [facility] [place] [address], [facility] Basophils/100 WBC (Bld) 0.6 % Normal 0.0-1.0 [facility] Comment on above: Performed By: #### 5 0103 #### [facility] [address] [facility] [place] [address], [facility] Eosinophils (Bld) [#/Vol] 0.2 10*3/uL Normal 0.0-0.5 [facility] Comment on above: Performed By: #### 5 0103 #### [facility] [address] [facility] [place] [address], [facility] Eosinophils/100 WBC (Bld) 2.5 % Normal 0.0-6.0 [facility] Comment on above: Performed By: #### 5 0103 #### [facility] [address] [facility]. [address] Erythrocyte distribution width (RBC) [Ratio] 19.9 % High 11.5-15.0 [facility] Comment on above: Performed By: #### 5 0103 #### [facility] [address] [facility]. [address] Hematocrit (Bld) [Volume fraction] 31.6 % Low 39.0-50.0 [facility] Comment on above: Performed By: #### 5 0103 #### [facility] [address] Hemoglobin (Bld) [Mass/Vol] 9.3 g/dL Low 13.0-17.0 [facility] Comment on above: Performed By: #### 5 0103 #### [facility] [address] [facility]. [address] IMMATURE GRANS 0.2 % Normal 0.0-1.0 [facility] Comment on above: Performed By: #### 5 0103 #### [facility] [address] [facility]. [address] Lymphocytes (Bld) [#/Vol] 0.3 10*3/uL Low 1.2-4.0 [facility] Comment on above: Performed By: #### 5 3 #### [facility] [address] Lymphocytes/100 WBC (Bld) 4.4 % Low 20.0-45.0 [facility] Comment on above: Performed By: #### 5 3 #### [facility] [address] [place] [address], [facility] MCH (RBC) [Entitic mass] 23.1 pg Low 27.0-33.0 [facility] Comment on above: Performed By: #### 5 0103 #### [facility] [address] [facility]. [address] MCHC (RBC) [Mass/Vol] 29.4 g/dL Low 32.0-35.0 [facility] Comment on above: Performed By: #### 5 0103 #### [facility] [address] [facility] [place] [address], [facility] MCV (RBC) [Entitic vol] 78.6 fL Low 82.0-98.0 [facility] Comment on above: Performed By: #### 5 0103 #### [facility] [address] [place] [address], [facility] Monocytes (Bld) [#/Vol] 0.6 10*3/uL Normal 0.1-1.0 [facility] Comment on above: Performed By: #### 5 3 #### [facility] [address] MONOS 8.9 % Normal 5.0-12.0 [facility] Comment on above: Performed By: #### 5 3 #### [facility] [address] Neutrophils/100 WBC (Bld) 83.4 % High 40.0-72.0 [facility] Comment on above: Performed By: #### 5 3 #### [facility] [address] [facility]. [address] Nucleated RBC/100 WBC (Bld) [Ratio] 0 % Normal 0-0 [facility] Comment on above: Performed By: #### 5 3 #### [facility] [address] [place] [address], [facility] PLAT CNT 191 10*3/uL Normal 150-400 [facility] Comment on above: Performed By: #### 5 3 #### [facility] [address] [place] [address], [facility] RBC (Bld) [#/Vol] 4.02 10*6/uL Low 4.20-5.70 [facility] Comment on above: Performed By: #### 5 0103 #### [facility] [address] [place] [address], [facility] WBC (Bld) [#/Vol] 6.43 10*3/uL Normal 4.00-10.60 [facility] Comment on above: Performed By: #### 5 0103 #### [facility] [address] [place] [address], [facility] COMPLEMENT 3on 04-25-2022 COMPLEMENT 3 104 mg/dL Normal 79-152 [facility] Comment on above: Order Comment: No: D o not add to previous draw Performed By: #### 5 0103 #### [facility] [address] [place] [address], [facility] COMPLEMENT 4on 04-25-2022 COMPLEMENT 4 23 mg/dL Normal 16-38 [facility] Comment on above: Order Comment: No: D o not add to previous draw Performed By: #### 5 0103 #### [facility] [address] [place] [address], [facility] CPKon 04-25-2022 CK [Catalytic activity/Vol] 23 U/L Low 30-223 [facility] Comment on above: Order Comment: No: D o not add to previous draw Performed By: #### 7 0207 #### [facility] [address] [place] [id number], [facility] CREATININE URINE RANDOMon Creatinine (U) [Mass/Vol] 104.0 mg/dL Normal [facility] Comment on above: Order Comment: Check Pacemaker/AICD Lead Position, Chest X-ray PA \EANDE\ LAT in Dept ;DO NOT lift affected arm above shoulder. S/P pacemaker/ICD implant. Verify lead placement Result Comment: Ther e are no established reference values for random urine specimens Performed By: #### 4 1919, [id number] ####[facility] [place] [address], [facility] FERRITINon 04-25-2022 Ferritin [Mass/Vol] 50 ng/mL Normal 24-336 [facility] Comment on above: Order Comment: No: D o not add to previous draw Performed By: #### 7 0207 #### [facility] [address] [place] [address], [facility] HEPATITIS B CORE ANTIBODYon 04-25-2022 HEP B CORE AB Non-Reactive Normal NONREACTIVE [facility] Comment on above: Order Comment: No: D o not add to previous draw Performed By: #### 7 7 #### [facility] [address] [facility] [address], [facility] HEPATITIS C ANTIBODYon 04-25 ANTI-HCV Non-Reactive Normal NONREACTIVE [facility] Comment on above: Order Comment: No: D o not add to previous draw Performed By: #### 7 7 #### [facility] [address] [facility] [address], [facility] IMMUNOFIXATION BLOODon 04-25 IgA [Mass/Vol] 733 mg/dL High 60-413 [facility] Comment on above: Performed By: #### 5 0103 #### [facility] [address] [place] [address], [facility] IgG [Mass/Vol] 1330 mg/dL Normal 591-1540 [facility] Comment on above: Performed By: #### 5 0103 #### [facility] [address] [facility] [place] [id number], [facility] IgM [Mass/Vol] 365 mg/dL High 54-285 [facility] Comment on above: Performed By: #### 5 0103 #### [facility] [address] [place] [address], [facility] IMMUNOFIXATION Normal [facility] Comment on above: Result Comment: Seru m immunofixation reveals a monoclonal [place] M gammopathy. SEE SEPARATE REPORT Performed By: #### 5 0103 #### [facility] [address] [place] [address], [place] KAPPA LIGHT CHN See [place] report. Normal 0.33-1.94 [facility] Comment on above: Performed By: #### 5 0103 #### [facility] [address] [place] [address], [facility] KAPPA/LAMDBA RATIO See [place] report. Normal 0.26-1.65 [facility] Comment on above: Result Comment: For patients with renal impairment, use a kappa/lambda ratio of 0.37-3.10 Performed By: #### 5 3 #### [facility] [address] [place] [address], [facility] LAMBDA LIGHT CHN See [place] report. Normal 0.57-2.63 [facility] Comment on above: Performed By: #### 5 3 #### [facility] [address] [place] [address], [facility] LIVER BATTERYon 04-25-2022 Albumin [Mass/Vol] 3.3 g/dL Low 3.5-5.7 [facility] Comment on above: Order Comment: No: D o not add to previous draw Performed By: #### 3 2044 #### [facility] [address] [place] [address], [facility] ALKALINE PHOSPH 78 IU/L Normal 34-104 [facility] Comment on above: Order Comment: No: D o not add to previous draw Performed By: #### 3 2044 #### [facility] [address] [place] [address], [facility] ALT [Catalytic activity/Vol] 15 U/L Normal 7-52 [facility] Comment on above: Order Comment: No: D o not add to previous draw Performed By: #### 3 2044 #### [facility] [address] [place] [address], [facility] AST [Catalytic activity/Vol] 16 U/L Normal 13-39 [facility] Comment on above: Order Comment: No: D o not add to previous draw Performed By: #### 3 2044 #### [facility] [address] [place] [address], [place] Bilirubin [Mass/Vol] 1.2 mg/dL High 0.3-1.0 [facility] Comment on above: Order Comment: No: D o not add to previous draw Performed By: #### 3 2044 #### [facility] [address] [place] [address], [place] Bilirubin.direct [Mass/Vol] 0.4 mg/dL High 0.0-0.2 [facility] Comment on above: Order Comment: No: D o not add to previous draw Performed By: #### 3 2044 #### [facility] [address] [place] [address], [facility] Protein [Mass/Vol] 6.8 g/dL Normal 6.0-8.3 [facility] Comment on above: Order Comment: No: D o not add to previous draw Performed By: #### 3 2044 #### [facility] [address] [place] [address], [facility] MAGNESIUM BLOODon 04-25-2022 Magnesium [Mass/Vol] 2.7 mg/dL Normal 1.9-2.7 [facility] Comment on above: Order Comment: No: D o not add to previous draw Performed By: #### 3 2044 #### [facility] [address] [place] [address], [facility] PHOSPHORUS BLOODon Phosphate [Mass/Vol] 3.7 mg/dL Normal 2.5-5.0 [facility] Comment on above: Order Comment: No: D o not add to previous draw Performed By: #### 7 0207 #### [facility] [address] [facility]. [address] POC SARS COV2 ANTIGEN NEGATI VEon 04-25-2022 POC SARS COV2 ANTIGEN NEG Negative Normal NEGATIVE [facility] Comment on above: Result Comment: Nega [...] antigen from SARS-CoV-2 in direct nasopharyngeal swab (CITY [employer]) specimens from individuals who are suspected of [...] of Accreditation. Performed By: #### 3 2044 ####[facility] [place] [address], [facility] PROTEIN ELECT Marcos 04-25-2022 Protein [Mass/Vol] 6.9 g/dL Normal 6.0-8.3 [facility] Comment on above: Order Comment: No: D o not add to previous draw Performed By: #### 7 0207 #### [facility] [address] [place] [address], [facility] Protein [Mass/Vol] 0.20 g/dL High 0.00-0.00 [facility] Comment on above: Order Comment: No: D o not add to previous draw Performed By: #### 7 0207 #### [facility] [address] [place] [address], [facility] PROTEIN ELECT Normal [facility] Comment on above: Order Comment: No: D o not add to previous draw Result Comment: The abnormal band in the gamma globulin region suggests monoclonal gammopathy. SEE SEPARATE REPORT Performed By: #### 7 0207 #### [facility] [facility] [address] [place] [address], [facility] PROTEIN ELECT URon 2 PROTEIN ELECT No abnormal bands se en. SEE SEPARATE REPORT Normal [facility] Comment on above: Order Comment: Check Pacemaker/AICD Lead Position, Chest X-ray PA \EANDE\ LAT in Dept ;DO NOT lift affected arm above shoulder. S/P pacemaker/ICD implant. Verify lead placement Performed By: #### 4 1919, [id number] ####[facility] [facility].[address] U TOTAL PROTEIN 47.8 mg/dL Normal [facility] Comment on above: Order Comment: Check Pacemaker/AICD Lead Position, Chest X-ray PA \EANDE\ LAT in Dept ;DO NOT lift affected arm above shoulder. S/P pacemaker/ICD implant. Verify lead placement Result Comment: Ther e are no established reference values for random urine specimens Performed By: #### 4 1919, [id number] ####[facility] [facility].[address] PROTHROMBIN TIMEon 2 INR Coag (PPP) [Relative time] 1.71 {INR} High 0.91-1.16 [facility] Comment on above: Order [...] 1995;108:231S-246S. Performed By: #### 5 0103 #### [facility] [address] PT Coag (PPP) [Time] 19.8 s High 12.3-14.8 [facility] Comment on above: Order Comment: No: D o not add to previous draw Result Comment: ALL RESULTS MUST BE INTERPRETED WITH RESPECT TO BLOOD DRAWING ARTIFACT OR DILUTION ERROR OF ANTICOAGULANT AT THE TIME OF SAMPLING. Performed By: #### 5 0103 #### [facility] [address] SEDIMENTATION RATEon 022 SED RATE 63 mm/hr High 0-10 [facility] Comment on above: Order Comment: No: D o not add to previous draw Performed By: #### 5 0608 #### [facility] [address] SERUM FREE LIGHT CHAINS ILon 04-25-2022 FREE KAPPA LIGHT CHAINS 14.36 mg/dL High 0.37-1.94 [facility] FREE KAPPA/LAMBDA RATIO 2.00 High 0.26-1.65 [facility] FREE LAMBDA LIGHT CHAINS 7.19 mg/dL High 0.57-2.63 [facility] IL Normal [facility] Comment on above: Result Comment: Test Performed by [facility] [address] [place] [address] - Released 05/02/2022 21:21 Result changed by IF on 05/02/2022 21:21. The previous value was Test Performed by [facility] [address] [id number] [phone].. TIBC- INCLUDES IRONon 2021 FE SATURATION 9 % Low 20-50 [facility] Comment on above: Order Comment: No: D o not add to previous draw Performed By: #### 7 0207 #### [facility] [address] [place] [address], [facility] Iron [Mass/Vol] 31 ug/dL Low 50-212 [facility] Comment on above: Order Comment: No: D o not add to previous draw Performed By: #### 7 0207 #### [facility] [address] [place] [address], [facility] TIBC 349 mcg/dL Normal 250-450 [facility] Comment on above: Order Comment: No: D o not add to previous draw Performed By: #### 7 0207 #### [facility] [address] [place] [address], [facility] UIBC 318 mcg/dL Normal 155-355 [facility] Comment on above: Order Comment: No: D o not add to previous draw Performed By: #### 7 0207 #### [facility] [address] [place] [address], [facility] TROPONIN-Ion 04-25-2022 Troponin I.cardiac [Mass/Vol] 0.03 ng/mL Normal 0.00-0.04 [facility] Comment on above: Order Comment: No: D o not add to previous draw Result Comment: REFE RENCE RANGES: 0.00 - 0.04 ng/ml NORMAL 0.05 - 0.50 ng/ml INDETERMINATE > 0.50 ng/ml CONSISTENT WITH AN M.I. Performed By: #### 3 2045 #### [facility] [address] [place] [address], [facility] US RENAL WITH BLADDERon 08- US RENAL WITH BLADDER [facility] Department of Radiology [address] [place] [address] Patient Name: MAN PATEL : 1950 Sex: M Age: Race: White Pt. Location: [id number] Patient Status: I Ordered Date: 04/25/2022 3:40:00 [...] cyst. Electronically signed: Joel Lambert. Transcribed by: [email or web address], User Resident: Electronically Signed by: JASON WALSH @ 05/08/2022 08:26 AM Normal [facility] Comment on above: Order Comment: R/O H ydronephrosis BNPon 04-24-2022 Natriuretic peptide B (Bld) [Mass/Vol] 78255.0 pg/mL Critically high <=900.0 [facility] Comment on above: Performed By: #### H STROPN, BNP, BMP ####[facility] [address] [address]Dr. Elba Anthony CBC AUTO DIFFon 04-24-2022 BASO # 0.1 103/ul Normal 0.0-0.1 [facility] Comment on above: Performed By: #### C BC ####[facility] In[address] [place], [place] [address]Dr. Elba Anthony Basophils/100 WBC (Bld) 0.8 % Normal 0.2-2.0 [facility] Comment on above: Performed By: #### C BC ####[facility] [address] [place] [address]. Elba Anthony EO # 0.2 103/ul Normal 0.0-0.7 [facility] Comment on above: Performed By: #### C BC ####[facility] [address] [address]Dr. Elba Anthony Eosinophils/100 WBC (Bld) 3.0 % Normal 0.9-7.0 [facility] Comment on above: Performed By: #### C BC ####[facility] X[address]ys[address] [place], [place] [address]Dr. Elba Anthony Erythrocyte distribution width (RBC) [Ratio] 20.0 % Critically high 11.0-15.0 [facility] Comment on above: Performed By: #### C BC ####[facility] [address] [place], [place] [address]Latoya Anthony Hematocrit (Bld) [Volume fraction] 32.7 % Critically low 42.0-54.0 [facility] Comment on above: Performed By: #### C BC ####[facility] [address] [address]DrLatoya Anthony Hemoglobin (Bld) [Mass/Vol] 9.7 g/dL Critically low 14.0-18.0 [facility] Comment on above: Performed By: #### C BC ####[facility] [address] [address]Dr. Elba Anthony IG # 0.02 10e3/ul Normal 0.00-0.03 [facility] Comment on above: Performed By: #### C BC ####[facility] [address] [address]Dr. Elba Anthony IG % 0.3 % Normal 0.0-0.5 [facility] Comment on above: Performed By: #### C BC ####[facility] [address] [address]DrLatoya Anthony LYMPH # 0.3 103/ul Critically low 1.2-3.8 [facility] Comment on above: Performed By: #### C BC ####[facility] [address] [address]DrLatoya Anthony Lymphocytes/100 WBC (Bld) 4.9 % Critically low 20.5-60.0 [facility] Comment on above: Performed By: #### C BC ####[facility] Rx[address]qcfsnz[address] [address]DrLatoya Anthony MANUAL DIFF REQ NO Normal [facility] Comment on above: Performed By: #### C BC ####[facility] [address] [place], [place] [address]DrLatoya Anthony MCH (RBC) [Entitic mass] 23.8 pg Critically low 25.9-34.0 [facility] Comment on above: Performed By: #### C BC ####[facility] Payzrfvenw[address] [place], [place] [address]DrLatoya Anthony MCHC (RBC) [Mass/Vol] 29.7 g/dL Critically low 29.9-35.2 [facility] Comment on above: Performed By: #### C BC ####[facility] [address] [id number]. Elba Anthony MCV (RBC) [Entitic vol] 80.3 fL Normal 80.0-94.0 [facility] Comment on above: Performed By: #### C BC ####[facility] [address] [id number]. Nereydasiobhan Raj MONO # 0.6 103/ul Normal 0.3-0.8 [facility] Comment on above: Performed By: #### C BC ####[facility] [address] [address]Dr. Elba Anthony Monocytes/100 WBC (Bld) 9.6 % Normal 1.7-12.0 [facility] Comment on above: Performed By: #### C BC ####[facility] [address] [place], [place] [address]Dr. Elba Anthony NEUT # 5.2 103/ul Normal 1.4-6.5 [facility] Comment on above: Performed By: #### C BC ####[facility] [address] [address]Dr. Nereydasiobhan Anthony Neutrophils/100 WBC (Bld) 81.4 % Critically high 43.0-75.0 [facility] Comment on above: Performed By: #### C BC ####[facility] [address] [address]Dr. Elba Raj Platelet mean volume (Bld) [Entitic vol] 10.1 fL Normal 9.5-13.5 [facility] Comment on above: Performed By: #### C BC ####[facility] [address] [id number]. Elba Anthony PLT 214 103/ul Normal 150-450 [facility] Comment on above: Performed By: #### C BC ####[facility] [address] [address]Dr. Elba Anthony RBC 4.07 106/ul Critically low 4.70-6.10 [facility] Comment on above: Performed By: #### C BC ####[facility] [address] [id number]. Elba Anthony WBC 6.4 103/ul Normal 4.0-11.0 [facility] Comment on above: Performed By: #### C BC ####[facility] [address] [id number]. Elba Anthony Covid-19 PCR (CVDTBH)on 04-08 SARS-CoV-2 (COVID-19) RNA ELIZABETH+probe Ql (Unsp spec) Not detected Normal NOT DETECTED [facility] Comment on above: Result Comment: When [...] for this test is supported by the [place] of Health and Human Service's declaration that [...] used). Performed By: #### C VDTBH ####[facility] [address] [address]Dr. Elba Anthony ER URINE PROFILEon 2 Bilirubin Ql (U) Negative Normal NEGATIVE [facility] Comment on above: Performed By: #### E RUR ####[facility] [address]cf[address] [address]Dr. Elba Anthony Clarity (U) CLEAR Normal CLEAR [facility] Comment on above: Performed By: #### E RUR ####[facility] Jmvrexigbg[address] [place], [place] [address]Dr. Nereydasiobhan Anthony Color (U) LT. YELLOW Normal YELLOW [facility] Comment on above: Performed By: #### E RUR ####[facility] Hbodsdihtz23[address] [place], [place] [address]Dr. Elba Anthony ERUAHD A micrscopic examina tion will be performed if indicated. Normal [facility] Comment on above: Performed By: #### E RUR ####[facility] Cpymavoixu[address] [place], [place] [address]Dr. Elba Anthony Glucose Ql (U) Negative Normal NEGATIVE [facility] Comment on above: Performed By: #### E RUR ####[facility] Jkcdhcavoc[address] [place], [place] [address]Dr. Elba Anthony Hemoglobin Ql (U) Negative Normal NEGATIVE [facility] Comment on above: Performed By: #### E RUR ####[facility] Yqgzprwwck[address] [place], [place] [address]Dr. Elba Anthony Ketones Ql (U) Negative Normal NEGATIVE [facility] Comment on above: Performed By: #### E RUR ####[facility] Zzrrqvexsi[address] [place], [place] [address]Dr. Elba Anthony LEUKOCYTES Negative Normal NEGATIVE [facility] Comment on above: Performed By: #### E RUR ####[facility] Lzludutkjf[address] [place], [place] [address]Dr. Elba Anthony Nitrite Ql (U) Negative Normal NEGATIVE [facility] Comment on above: Performed By: #### E RUR ####[facility] Hhkrshrj[address] [place], [place] [address]Dr. Elba Anthony pH (U) 6.0 [pH] Normal 5-9 [facility] Comment on above: Performed By: #### E RUR ####[facility] Exffvyvbzq[address] [place], [place] [address]Dr. Elba Anthony SPEC GRAVITY 1.010 Normal 1.005-<=1.02 5 [facility] Comment on above: Performed By: #### E RUR ####[facility] [address]va[address] [address]Dr. Elba Anthony UA PROTEIN Negative Normal NEGATIVE/ TRACE [facility] Comment on above: Performed By: #### E RUR ####[facility] [address] [address]Dr. Elba Anthony UR MICRO IND NOT INDICATED Normal [facility] Comment on above: Performed By: #### E RUR ####[facility] [address]iv[address] [address]Dr. Elba Anthony Urobilinogen Qn (U) 2.0 {Caden'U}/dL Abnormal 0.2 - 1. 0 [facility] Comment on above: Performed By: #### E RUR ####[facility] [address]fulne[address] [address]Dr. Elba Anthony PROF CHEM 8 (BAS METB)on Anion gap [Moles/Vol] 16.7 mmol/L Normal [facility] Comment on above: Performed By: #### H STROPN, BNP, BMP ####[facility] [address]wr[address] [address]Dr. Elba Anthony Calcium [Mass/Vol] 9.2 mg/dL Normal 8.5-10.1 [facility] Comment on above: Performed By: #### H STROPN, BNP, BMP ####[facility] [address]idq[address] [address]Dr. Elba Anthony Chloride [Moles/Vol] 97 mmol/L Critically low 98-107 [facility] Comment on above: Performed By: #### H STROPN, BNP, BMP ####[facility] [address]eb[address] [address]Dr. Elba Anthony CO2 [Moles/Vol] 26.3 mmol/L Normal 21.0-32.0 [facility] Comment on above: Performed By: #### H STROPN, BNP, BMP ####[facility] [address] [address]Dr. Elba Anthony Creatinine [Mass/Vol] 3.32 mg/dL Critically high 0.70-1.30 [facility] Comment on above: Performed By: #### H STROPN, BNP, BMP ####[facility] [address] [address]Dr. Elba Anthony EGFR-AF BENINESE 22 mL/min/1.73m2 Critically low >=60 [facility] Comment on above: Performed By: #### H STROPN, BNP, BMP ####[facility] Yxuzytaaxt[address] [place], [place] [address]Dr. Elba Anthony EGFR-NON AF BENINESE 18 mL/min/1.73m2 Critically low >=60 [facility] Comment on above: Performed By: #### H STROPN, BNP, BMP ####[facility] [address]xms[address] [place], [place] [address]Dr. Elba Anthony Glucose [Mass/Vol] 158 mg/dL Critically high 74-106 T [facility] Comment on above: Performed By: #### H STROPN, BNP, BMP ####[facility] Gqbutrrnpj20[address] [place], [place] [address]Dr. Elba Anthony Potassium [Moles/Vol] 5.0 mmol/L Normal 3.5-5.1 [facility] Comment on above: Performed By: #### H STROPN, BNP, BMP ####[facility] Jualjkqdbp[address] [place], [place] [address]Dr. Elba Anthony Sodium [Moles/Vol] 135 mmol/L Critically low 136-145 Th [facility] Comment on above: Performed By: #### H STROPN, BNP, BMP ####[facility] [address]ydeyqelhd[address] [place], [place] [address]Dr. Elba Anthony Urea nitrogen [Mass/Vol] 67.0 mg/dL Critically high 7.0-18.0 [facility] Comment on above: Performed By: #### H STROPN, BNP, BMP ####[facility] [address]yfj[address] [address]Dr. Elba Anthony Urea nitrogen/Creatinine [Mass ratio] 20.2 mg/mg Normal [facility] Comment on above: Performed By: #### H STROPN, BNP, BMP ####[facility] [address]zlfmcx[address] [address]Dr. Elba Anthony TROPONIN, HIGH SENSITIVITYon 04-24-2022 HSTROP 36.4 pg/mL Normal 4.0-76.1 [facility] Comment on above: Result Comment: CUT- OFF POINTS HAVE BEEN ESTABLISHED BASED ON THE FOURTH UNIVERSAL DEFINITIONS OF MYOCARDIALINFARCTION. THE UPPER REFERENCE LIMIT (URL) OF TROPONIN, DEFINED THE 99TH PERCENTILE OFcTnI DISTRIBUTION IN A REFERENCE POPULATION, HAS BEEN CONFIRMED THE DECISION THRESHOLDFOR ND DIAGNOSIS. Performed By: #### H STRODUYEN, BNP, BMP ####[facility] Oubtwixivl[address] [place], [place] [address]Dr. Elba Anthony XR CHEST 1 Von 04-24-2022 XR CHEST 1 V Normal [facility] BNPon 04-22-2022 Natriuretic peptide B (Bld) [Mass/Vol] 61758.0 pg/mL Critically high <=900.0 [facility] Comment on above: Performed By: #### B CITY ENGINEER, BMP ####[facility] Rdxkwwxfux[address] [place], [place] [address]Dr. Elba Anthony PROF CHEM 8 (BAS METB)on Anion gap [Moles/Vol] 13.8 mmol/L Normal [facility] Comment on above: Performed By: #### B CITY ENGINEER, BMP ####[facility] Lcingwrdpw[address] [place], [place] [address]Dr. Elba Anthony Calcium [Mass/Vol] 8.7 mg/dL Normal 8.5-10.1 [facility] Comment on above: Performed By: #### B CITY ENGINEER, BMP ####[facility] [address]usy[address] [place] [address]Dr. Elba Anthony Chloride [Moles/Vol] 98 mmol/L Normal 98-107 [facility] Comment on above: Performed By: #### B CITY ENGINEER, BMP ####[facility] C[address]pcxcwupp[address] [place] [address]Dr. Elba Anthony CO2 [Moles/Vol] 29.1 mmol/L Normal 21.0-32.0 [facility] Comment on above: Performed By: #### B CITY ENGINEER, BMP ####[facility] [address]hac[address] [place] [id number]. Elba Anthony Creatinine [Mass/Vol] 2.89 mg/dL Critically high 0.70-1.30 [facility] Comment on above: Performed By: #### B CITY ENGINEER, BMP ####[facility] S[address]fkvhjfw[address] [place] [id number]. Elba Anthony EGFR-AF BENINESE 26 mL/min/1.73m2 Critically low >=60 [facility] Comment on above: Performed By: #### B CITY ENGINEER, BMP ####[facility] S[address]ookgirj[address] [place] [id number]. Elba Anthony EGFR-NON AF BENINESE 22 mL/min/1.73m2 Critically low >=60 [facility] Comment on above: Performed By: #### B CITY ENGINEER, BMP ####[facility] Dkeazdgfpx[address] [place], [place] [address]Dr. Elba Anthony Glucose [Mass/Vol] 108 mg/dL Critically high 74-106 [facility] Comment on above: Performed By: #### B CITY ENGINEER, BMP ####[facility] Orttdzjaiz[address] [place], [place] [address]Dr. Elba Anthony Potassium [Moles/Vol] 4.9 mmol/L Normal 3.5-5.1 [facility] Comment on above: Performed By: #### B CITY ENGINEER, BMP ####[facility] Gdmsevhyjt[address] [place], [place] [address]Dr. Elba Anthony Sodium [Moles/Vol] 136 mmol/L Normal 136-145 [facility] Comment on above: Performed By: #### B CITY ENGINEER, BMP ####[facility] [address]ms[address] [place], [place] [address]Dr. Elba Anthony Urea nitrogen [Mass/Vol] 63.0 mg/dL Critically high 7.0-18.0 [facility] Comment on above: Performed By: #### B CITY ENGINEER, BMP ####[facility] [address]altztlua[address] [place] [id number]. Elba Anthony Urea nitrogen/Creatinine [Mass ratio] 21.8 mg/mg Normal [facility] Comment on above: Performed By: #### B CITY ENGINEER, BMP ####[facility] Qnopedavua[address]24[address] [place], [place] [address]Dr. Elba Anthony BNPon 04-15-2022 Natriuretic peptide B (Bld) [Mass/Vol] 26595.0 pg/mL Critically high <=900.0 [facility] Comment on above: Result Comment: repe ated Performed By: #### B CITY ENGINEER, BMP ####[facility] Drnqxonjcg[address] [place], [place] [address]Dr. Elba Anthony PROF CHEM 8 (BAS METB)on Anion gap [Moles/Vol] 16.8 mmol/L Normal [facility] Comment on above: Performed By: #### B CITY ENGINEER, BMP ####[facility] Obnafcgpsk[address] [place], [place] [address]Dr. Elba Anthony Calcium [Mass/Vol] 8.4 mg/dL Critically low 8.5-10.1 [facility] Comment on above: Performed By: #### B CITY ENGINEER, BMP ####[facility] Eggpsipbqs[address] [place], [place] [address]Dr. Elba Anthony Chloride [Moles/Vol] 96 mmol/L Critically low 98-107 [facility] Comment on above: Performed By: #### B CITY ENGINEER, BMP ####[facility] Shdtngubcy[address] [place], [place] [address]Dr. Elba Anthony CO2 [Moles/Vol] 26.9 mmol/L Normal 21.0-32.0 [facility] Comment on above: Performed By: #### B CITY ENGINEER, BMP ####[facility] Akfbmsqdkc[address] [place], [place] [address]Dr. Elba Anthony Creatinine [Mass/Vol] 2.83 mg/dL Critically high 0.70-1.30 [facility] Comment on above: Performed By: #### B CITY ENGINEER, BMP ####[facility] Aqsizhtmdg[address] [place], [place] [address]Dr. Elba Anthony EGFR-AF BENINESE 27 mL/min/1.73m2 Critically low >=60 [facility] Comment on above: Performed By: #### B CITY ENGINEER, BMP ####[facility] [address]ew[address] [place] [address]Dr. Elba Anthony EGFR-NON AF BENINESE 22 mL/min/1.73m2 Critically low >=60 [facility] Comment on above: Performed By: #### B CITY ENGINEER, BMP ####[facility] Saqligvgrt[address] [place], [place] [address]Dr. Nereydasiobhan Anthony Glucose [Mass/Vol] 118 mg/dL Critically high 74-106 T [facility] Comment on above: Performed By: #### B CITY ENGINEER, BMP ####[facility] Vfbwilsdnq9[address] [place] [address]Dr. Elba Anthony Potassium [Moles/Vol] 4.7 mmol/L Normal 3.5-5.1 [facility] Comment on above: Performed By: #### B CITY ENGINEER, BMP ####[facility] Qadllocsml[address] [place], [place] [address]Dr. Elba Anthony Sodium [Moles/Vol] 135 mmol/L Critically low 136-145 Th [facility] Comment on above: Performed By: #### B CITY ENGINEER, BMP ####[facility] S[address]jgikmdt[address] [place], [place] [address]Dr. Elba Anthony Urea nitrogen [Mass/Vol] 68.0 mg/dL Critically high 7.0-18.0 [facility] Comment on above: Performed By: #### B CITY ENGINEER, BMP ####[facility] Gkqicytuyz[address] [place], [place] [address]Dr. Elba Anthony Urea nitrogen/Creatinine [Mass ratio] 24.0 mg/mg Normal [facility] Comment on above: Performed By: #### B CITY ENGINEER, BMP ####[facility] L[address]mukhaqz[address] [place], [place] [address]Dr. Elba Anthony BNPon 04-02-2022 Natriuretic peptide B (Bld) [Mass/Vol] 02555.0 pg/mL Critically high <=900.0 [facility] Comment on above: Performed By: #### B CITY ENGINEER, BMP ####[facility] [address]ssw[address]awu[address] [place], [place] [address]Dr. Elba Anthony PROF CHEM 8 (BAS METB)on Anion gap [Moles/Vol] 9.7 mmol/L Normal [facility] Comment on above: Performed By: #### B CITY ENGINEER, BMP ####[facility] [address]uacsapxl[address] [place], [place] [address]Dr. Elba Anthony Calcium [Mass/Vol] 8.8 mg/dL Normal 8.5-10.1 [facility] Comment on above: Performed By: #### B CITY ENGINEER, BMP ####[facility] Nkszrxnxlu[address] [place], [place] [address]Dr. Elba Anthony Chloride [Moles/Vol] 99 mmol/L Normal 98-107 [facility] [facility] Comment on above: Performed By: #### B CITY ENGINEER, BMP ####[facility] Brchpfiewg[address] [place], [place] [address]Dr. Elba Anthony CO2 [Moles/Vol] 31.1 mmol/L Normal 21.0-32.0 The [facility] Comment on above: Performed By: #### B CITY ENGINEER, BMP ####[facility] Oghsakzykg6[address] [place], [place] [address]Dr. Elba Anthony Creatinine [Mass/Vol] 2.45 mg/dL Critically high 0.70-1.30 The [facility] Comment on above: Performed By: #### B CITY ENGINEER, BMP ####[facility] Wbalgavoik[address] [place], [place] [address]Dr. Elba Anthony EGFR-AF BENINESE 32 mL/min/1.73m2 Critically low >=60 The [facility] Comment on above: Performed By: #### B CITY ENGINEER, BMP ####[facility] Livronvads[address] [place], [place] [address]Dr. Elba Anthony EGFR-NON AF BENINESE 26 mL/min/1.73m2 Critically low >=60 The [facility] Comment on above: Performed By: #### B CITY ENGINEER, BMP ####[facility] Tnopozjpzq[address] [place], [place] [address]Dr. Elba Anthony Glucose [Mass/Vol] 101 mg/dL Normal 74-106 The [facility] Comment on above: Performed By: #### B CITY ENGINEER, BMP ####[facility] Tqksnwghnt3465[address] [place], [place] [address]Dr. Elba Anthony Potassium [Moles/Vol] 3.8 mmol/L Normal 3.5-5.1 The [facility] Comment on above: Performed By: #### B CITY ENGINEER, BMP ####[facility] Wqxqbfduip[address] [place], [place] [address]Dr. Elba Anthony Sodium [Moles/Vol] 136 mmol/L Normal 136-145 The [facility] Comment on above: Performed By: #### B CITY ENGINEER, BMP ####[facility] Lybkmmegon8[address] [place], [place] [address]Dr. Nereydasiobhan Anthony Urea nitrogen [Mass/Vol] 46.0 mg/dL Critically high 7.0-18.0 The [facility] Comment on above: Performed By: #### B CITY ENGINEER, BMP ####[facility] Vuhgxalcvu[address] [place], [place] [address]Dr. Elba Anthony Urea nitrogen/Creatinine [Mass ratio] 18.8 mg/mg Normal The [facility] Comment on above: Performed By: #### B CITY ENGINEER, BMP ####[facility] Xakpgztcti[address] [place], [place] [address]Dr. Elba Raj CBC W MANUAL DIFFon 04-01-20 22 ANISOCYTOSIS 1+ Normal The [facility] Comment on above: Performed By: #### C ADALGISA ####[facility] Lwnyamplgo[address] [place], [place] [address]Dr. Elba Anthony ATYPICAL LYMPH # 0.00 103/ul Normal The [facility] Comment on above: Performed By: #### C ADALGISA ####[facility] Eleqkdtfjo1020[address] [place], [place] [address]Dr. Elba Anthony ATYPICAL LYMPH % 0 % Normal The [facility] Comment on above: Performed By: #### C ADALGISA ####[facility] Hulsouisdo4432[address] [place], [place] [address]Dr. Elba Anthony BAND # 0.4 103/ul Critically high 0.0-0.3 The [facility] Comment on above: Performed By: #### C ADALGISA ####[facility] [address] [place] [address]Dr. Elba Anthony BAND % 4 % Normal 0-5 The [facility] Comment on above: Performed By: #### C BCMAN ####[facility] Mrzoefajzw8259 [place] [address]Dr. Elba Anthony BASOM # 0.00 103/ul Normal 0.00-0.10 The [facility] Comment on above: Performed By: #### C BCMAN ####[facility] Hamtjwdzkm39[address] [place] [address]Dr. Elba Anthony BASOM % 0.0 % Critically low 0.2-2.0 The [facility] Comment on above: Performed By: #### C BCVINCENT ####[facility] Ogucrfovtg26[address] [place], [place] [address]Dr. Elba Anthony BLAST # 0.0 103/ul Normal The [facility] Comment on above: Performed By: #### C BCVINCENT ####[facility] Xyvicrdpkp67[address] [place], [place] [address]Dr. Elba Anthony BLAST % 0 % Normal The [facility] Comment on above: Performed By: #### C BCVINCENT ####[facility] Ahbikfaivb3734[address] [place], [place] [address]Dr. Elba Anthony CORRECTED WBC Normal 4.0-11.0 The [facility] Comment on above: Performed By: #### C BCVINCENT ####[facility] Rbfpengibc35[address] [place], [place] [address]Dr. Elba Anthony EOS # 0.00 103/ul Normal 0.00-0.70 The [facility] Comment on above: Performed By: #### C BCVINCENT ####[facility] Aomshhnwyh[address] [place], [place] [address]Dr. Elba Anthony EOS% 0.0 % Critically low 0.9-7.0 The [facility] Comment on above: Performed By: #### C BCMAN ####[facility] Syhapaswek[address] [place], [place] [address]Dr. Elba Anthony HCT 31.3 % Critically low 42.0-54.0 The [facility] Comment on above: Performed By: #### C ADALGISA ####[facility] Gatxdfpeft[address] [place], [place] [address]Ix. Elba Anthony HGB 9.2 g/dl Critically low 14.0-18.0 The [facility] Comment on above: Performed By: #### C ADALGISA ####[facility] Bpevhxpddf4141 [place], [place] [address]Lv. Elba Anthony HYPOCHROMASIA SLIGHT Normal The [facility] Comment on above: Performed By: #### C ADALGISA ####[facility] Eybrkdqpdm8095 [place], [place] [address]Cl. Elba Anthony LYMPHM # 0.32 103/ul Critically low 1.20-3.80 The [facility] Comment on above: Performed By: #### C ADALGISA ####[facility] Moiytijvmb1846 [place] [id number]. Elba Anthony LYMPHM% 3.0 % Critically low 20.5-60.0 The [facility] Comment on above: Performed By: #### C ADALGISA ####[facility] Tchjpjxdvc6256 [place] [id number]. Elba Anthony MCH 23.2 pg Critically low 25.9-34.0 The [facility] Comment on above: Performed By: #### C ADALGISA ####[facility] Toiojyrnmc7927 [place] [id number]. Elba Anthony MCHC 29.4 g/dl Critically low 29.9-35.2 The [facility] Comment on above: Performed By: #### C ADALGISA ####[facility] Hbbcitgbty1678 [place] [id number]. Elba Anthony MCV 79.0 fL Critically low 80.0-94.0 The [facility] Comment on above: Performed By: #### C ADALGISA ####[facility] Hgyylfteqv5042 [place] [id number]. Elba Anthony METAMYELOCYTE # 0.1 103/ul Normal The [facility] Comment on above: Performed By: #### C ADALGISA ####[facility] Ejeuthcpjg4193 [place] [id number]. Elba Anthony METAMYELOCYTE % 1 % Normal The [facility] Comment on above: Performed By: #### C ADALGISA ####[facility] Rmktcpaghe4854 [place] [id number]. Elba Anthony MICROCYTOSIS SLIGHT Normal The [facility] Comment on above: Performed By: #### C ADALGISA ####[facility] Upzqgpqabg1874 [place] [id number]. Elba Anthony MONOM# 0.32 103/ul Normal 0.30-0.80 [facility] Comment on above: Performed By: #### C ADALGISA ####[facility] Rqifuztnko0727 [place] [address]Dr. Elba Anthony MONOM% 3.0 % Normal 1.7-12.0 The [facility] Comment on above: Performed By: #### C ADALGISA ####[facility] Mkbdrvtxcr6[address] [place], [place] [address]Dr. Elba Anthony MPV 9.9 fL Normal 9.5-13.5 The [facility] Comment on above: Performed By: #### C ADALGISA ####[facility] Dnfzemithg[address] [place], [place] [address]Dr. Elba Anthony MYELOCYTE # 0.0 103/ul Normal The [facility] Comment on above: Performed By: #### C ADALGISA ####[facility] Oznlxpvkmy1802 [place] [address]Dr. Elba Anthony MYELOCYTE % 0 % Normal The [facility] Comment on above: Performed By: #### C ADALGISA ####[facility] Qqxepqqmhm0937 [place] [address]Dr. Elba Anthony NRBC 0 Normal The [facility] Comment on above: Performed By: #### C ADALGISA ####[facility] Wabaabocwe7182 [place] [id number]. Ebla Anthony PLT 167 103/ul Normal 150-450 The [facility] Comment on above: Performed By: #### C ADALGISA ####[facility] Gbaijxdrbg280[address] [place] [address]Dr. Elba Anthony RBC 3.96 106/ul Critically low 4.70-6.10 [facility] Comment on above: Performed By: #### C ADALGISA ####[facility] Lmjkufpcym8350 [place] [id number]. Elba Anthony RDW 19.8 % Critically high 11.0-15.0 [facility] Comment on above: Performed By: #### C ADALGISA ####[facility] Evhvbsgjij58[address] [place], [place] [address]Dh. Elba Anthony SEG # 9.52 103/ul Critically high 1.40-6.50 [facility] Comment on above: Performed By: #### C ADALGISA ####[facility] Czovhhdfpf9493 [place] [id number]. Elba Anthony SEG % 89.0 % Critically high 43.0-75.0 [facility] Comment on above: Performed By: #### C ADALGISA ####[facility] Muunqbwmto4188 [place] [id number]. Elba Anthony WBC 10.7 103/ul Normal 4.0-11.0 [facility] Comment on above: Performed By: #### C ADALGISA ####[facility] Rgoemkhmba84[address] [place] [phone]. Elba Raj CT CSPINE WO CONon CT CSPINE WO CON Normal The [facility] CT HEAD WO CONon 04-01-2022 CT HEAD WO CON Normal The [facility] PROF 14(COMP METB)on 022 Albumin [Mass/Vol] 2.8 g/dL Critically low 3.4-5.0 Th e [facility] Comment on above: Performed By: #### C MP ####[facility] Ssndaiefhh2922 [place] [id number] Nereydasiobhan Anthony Albumin/Globulin [Mass ratio] 0.6 {ratio} Normal The [facility] Comment on above: Performed By: #### C MP ####[facility] Xmiykbegod6696 [place] [id number] Anthony ALP [Catalytic activity/Vol] 81 U/L Normal 46-116 The [facility] Comment on above: Performed By: #### C MP ####[facility] Ifuxxhfefc1539 [place] [id number]. Elba Anthony ALT [Catalytic activity/Vol] 15 U/L Critically low 16-63 The [facility] Comment on above: Performed By: #### C MP ####[facility] Jhapdtjtjy2511 [place] [id number]. Elba Anthony Anion gap [Moles/Vol] 9.2 mmol/L Normal [facility] Comment on above: Performed By: #### C MP ####[facility] Ufhgsxufsf0899 [place] [phone]. Elba Anthony AST [Catalytic activity/Vol] 21 U/L Normal 15-37 [facility] Comment on above: Performed By: #### C MP ####[facility] Wyaiwqwaij3286 [place] [address]Dr. Elba Anthony Bilirubin [Mass/Vol] 1.7 mg/dL Critically high 0.2-1.0 [facility] Comment on above: Performed By: #### C MP ####[facility] Pjzqytyhmz3344 [place] [phone]. Elba Anthony Calcium [Mass/Vol] 9.0 mg/dL Normal 8.5-10.1 The [facility] Comment on above: Performed By: #### C MP ####[facility] Solejjkuuk7955 [place] [address]Dr. Elba Raj Chloride [Moles/Vol] 99 mmol/L Normal 98-107 The [facility] Comment on above: Performed By: #### C MP ####[facility] Ibqzqqtttc2739 [place] [phone]. Elba Anthony CO2 [Moles/Vol] 30.7 mmol/L Normal 21.0-32.0 The [facility] Comment on above: Performed By: #### C MP ####[facility] Juvrvfkjrh7797 [place] [id number]. lEba Anthony Creatinine [Mass/Vol] 2.60 mg/dL Critically high 0.70-1.30 The [facility] Comment on above: Performed By: #### C MP ####[facility] Nvhwngndsg6392 [place] [phone]. Elba Raj EGFR-AF BENINESE 30 mL/min/1.73m2 Critically low >=60 [facility] Comment on above: Performed By: #### C MP ####[facility] Dbtgyjsymh5098 [place] [phone]. Elba Raj EGFR-NON AF BENINESE 25 mL/min/1.73m2 Critically low >=60 [facility] Comment on above: Performed By: #### C MP ####[facility] Ixktaahufy9675 [place] [phone]. Nereydasiobhan Anthony Globulin (S) [Mass/Vol] 4.4 g/dL Normal [facility] Comment on above: Performed By: #### C MP ####[facility] Srguevgdch7077 [place] [phone]. Elba Anthony Glucose [Mass/Vol] 130 mg/dL Critically high 74-106 T [facility] Comment on above: Performed By: #### C MP ####[facility] Wgihsqcknc7483 [place] [phone]. Elba Anthony Potassium [Moles/Vol] 3.9 mmol/L Normal 3.5-5.1 [facility] Comment on above: Performed By: #### C MP ####[facility] Vreqveozop1739 [place] [phone]. Elba Anthony Protein [Mass/Vol] 7.2 g/dL Normal 6.4-8.2 [facility] Comment on above: Performed By: #### C MP ####[facility] Bmcfhdzjsn2600 [place] [phone]. Elba Anthony Sodium [Moles/Vol] 135 mmol/L Critically low 136-145 Th [facility] Comment on above: Performed By: #### C MP ####[facility] Dghksmnfsv2376 [place] [phone]. Elba Anthony Urea nitrogen [Mass/Vol] 41.0 mg/dL Critically high 7.0-18.0 [facility] Comment on above: Performed By: #### C MP ####[facility] Apazsqskzb8977 [place] [address]Dr. Elba Anthony Urea nitrogen/Creatinine [Mass ratio] 15.8 mg/mg Normal The [facility] Comment on above: Performed By: #### C MP ####[facility] Gniwlgijgq3602 [place] [address]Dr. Nereydasiobhan Anthony XR CHEST 1 Von 04-01-2022 XR CHEST 1 V Normal [facility] BNPon 01-07-2022 Natriuretic peptide B (Bld) [Mass/Vol] 9964.0 pg/mL Critically high <=900.0 The [facility] Comment on above: Performed By: #### C MP, BNP ####[facility] Usczacfljt0188 [place] [address]Dr. Elba Anthony CBC W MANUAL DIFFon 01-08-20 22 ATYPICAL LYMPH # Normal The [facility] Comment on above: Performed By: #### C BCMAN ####[facility] Vtktnodbyg[address] [place], [place] [address]Dr. Elba Anthony ATYPICAL LYMPH % Normal [facility] Comment on above: Performed By: #### C BCMAN ####[facility] Lsuzpfytet8[address] [place], [place] [address]Dr. Elba Anthony BAND # 0.1 103/ul Normal 0.0-0.3 The [facility] Comment on above: Performed By: #### C BCMAN ####[facility] Zguxakrsnx0741 [place] [address]Dr. Elba Anthony BAND % 1 % Normal 0-5 The [facility] Comment on above: Performed By: #### C BCMAN ####[facility] Bexfpytobg4031 [place] [address]Dr. Elba Anthony BASOM # 0.00 103/ul Normal 0.00-0.10 The [facility] Comment on above: Performed By: #### C BCMAN ####[facility] Bvzhkyglpy[address] [place], [place] [address]Dr. Elba Anthony BASOM % 0.0 % Critically low 0.2-2.0 The [facility] Comment on above: Performed By: #### C BCVINCENT ####[facility] Axwvsvfbfa7333 [place] [address]Dr. Elba Anthony BLAST # Normal [facility] Comment on above: Performed By: #### C ADALGISA ####[facility] Vnhrbvqvws8899 [place] [phone]. Elba Anthony BLAST % Normal [facility] Comment on above: Performed By: #### C ADALGISA ####[facility] Dxfvidrdti2616 [place] [address]Dr. Elba Anthony CORRECTED WBC Normal 4.0-11.0 The [facility] Comment on above: Performed By: #### C ADALGISA ####[facility] Stmgpjhauj[address] [place], [place] [address]Dr. Elba Anthony EOS # 0.07 103/ul Normal 0.00-0.70 [facility] Comment on above: Performed By: #### C ADALGISA ####[facility] Andgjwitfn6256[address] [place], [place] [address]Dr. Elba Anthony EOS% 1.0 % Normal 0.9-7.0 [facility] Comment on above: Performed By: #### C ADALGISA ####[facility] Abzxusfynk[address] [place], [place] [address]Dr. Elba Anthony HCT 33.4 % Critically low 42.0-54.0 The [facility] Comment on above: Performed By: #### C ADALGISA ####[facility] Ravzfordbd95[address] [place], [place] [address]Dr. Elba Anthony HGB 9.8 g/dl Critically low 14.0-18.0 The [facility] Comment on above: Performed By: #### C ADALGISA ####[facility] Jjnraqibce9[address] [place], [place] [address]Dr. Elba Antohny LYMPHM # 0.44 103/ul Critically low 1.20-3.80 The [facility] Comment on above: Performed By: #### C ADALGISA ####[facility] Jkragpqbza[address] [place], [place] [address]Dr. Elba Anthony LYMPHM% 6.0 % Critically low 20.5-60.0 The [facility] Comment on above: Performed By: #### C ADALGISA ####[facility] Fvtntdirni5888 [place] [phone]. Elba Anthony MCH 24.1 pg Critically low 25.9-34.0 [facility] Comment on above: Performed By: #### C ADALGISA ####[facility] Gzarvpdyaq5515 [place] [id number]. Elba Anthony MCHC 29.3 g/dl Critically low 29.9-35.2 [facility] Comment on above: Performed By: #### C ADALGISA ####[facility] Iziyjdlzlu4279 [place] [id number]. Elba Anthony MCV 82.1 fL Normal 80.0-94.0 [facility] Comment on above: Performed By: #### C ADALGISA ####[facility] Keurulqjbx0076 [place] [phone]. Elba Anthony METAMYELOCYTE # Normal The [facility] Comment on above: Performed By: #### C ADALGISA ####[facility] Hjysraycqp3705 [place] [phone]. Elba Anthony METAMYELOCYTE % Normal [facility] Comment on above: Performed By: #### C ADALGISA ####[facility] Arsualwtwp7355 [place] [id number]. lEba Anthony MONOM# 0.52 103/ul Normal 0.30-0.80 [facility] Comment on above: Performed By: #### C ADALGISA ####[facility] Stclctybhw2708 [place] [id number]. Elba Anthony MONOM% 7.0 % Normal 1.7-12.0 [facility] Comment on above: Performed By: #### C ADALGISA ####[facility] Cmprdrnugc7062 [place] [phone]. Elba Anthony MPV 9.5 fL Normal 9.5-13.5 [facility] Comment on above: Performed By: #### C ADALGISA ####[facility] Kjhrkmgndc9971 [place], [place] [address]Xr. Elba Anthony MYELOCYTE # Normal [facility] Comment on above: Performed By: #### C ADALGISA ####[facility] Kbtpukahsv0644 [place], [place] [address]Wz. Elba Anthony MYELOCYTE % Normal [facility] Comment on above: Performed By: #### C ADALGISA ####[facility] Oeidioejor1325 [place] [phone]. Elba Anthony NRBC Normal [facility] Comment on above: Performed By: #### C ADALGISA ####[facility] Ubqgvmxngl4529 [place] [phone]. Elba Anthony PLT 247 103/ul Normal 150-450 [facility] Comment on above: Performed By: #### C ADALGISA ####[facility] Rmgswhqmoj8913 [place] [phone]. Elba Anthony RBC 4.07 106/ul Critically low 4.70-6.10 [facility] Comment on above: Performed By: #### C ADALGISA ####[facility] Hgcqnipuvi2623 [place] [id number]. Elba Anthony RDW 18.7 % Critically high 11.0-15.0 [facility] Comment on above: Performed By: #### C ADALGISA ####[facility] Xnhkcorqij6614 [place] [id number]. Elba Anthony SEG # 6.29 103/ul Normal 1.40-6.50 [facility] Comment on above: Performed By: #### C ADALGISA ####[facility] Jmpygsbbeb3803 [place] [id number]. Elba Anthony SEG % 85.0 % Critically high 43.0-75.0 The [facility] Comment on above: Performed By: #### C ADALGISA ####[facility] Tnpupuroln7972 [place] [phone]. Elba Anthony WBC 7.4 103/ul Normal 4.0-11.0 The [facility] Comment on above: Performed By: #### C BCMAN ####[facility] Qfixlprnyq8[address] [place], [place] [address]Dr. Elba Anthony ER URINE PROFILEon 2 Bilirubin Ql (U) Negative Normal NEGATIVE The [facility] Comment on above: Performed By: #### E RUR ####[facility] Reoswdfcyo307[address] [place], [place] [address]Dr. Elba Anthony Clarity (U) CLEAR Normal CLEAR [facility] Comment on above: Performed By: #### E RUR ####[facility] Vpxzuzlwtp[address] [place], [place] [address]Dr. Elba Anthony Color (U) LT. YELLOW Normal YELLOW The [facility] Comment on above: Performed By: #### E RUR ####[facility] Gqywyrwilr4[address] [place], [place] [address]Dr. Elba Raj ERUAHD A micrscopic examina tion will be performed if indicated. Normal The [facility] Comment on above: Performed By: #### E RUR ####[facility] Wvzlhazjav4[address] [place], [place] [address]Dr. Elba Anthony Glucose Ql (U) Negative Normal NEGATIVE The [facility] Comment on above: Performed By: #### E RUR ####[facility] Bgfanczjyh17[address] [place], [place] [address]Dr. Elba Anthony Hemoglobin Ql (U) Negative Normal NEGATIVE The [facility] Comment on above: Performed By: #### E RUR ####[facility] Gwnonrvrfa50[address] [place], [place] [address]Dr. Elba Anthony Ketones Ql (U) Negative Normal NEGATIVE The [facility] Comment on above: Performed By: #### E RUR ####[facility] Gxmoyjhemu[address] [place], [place] [address]Dr. Nereydalan Anthony LEUKOCYTES Negative Normal NEGATIVE The [facility] Comment on above: Performed By: #### E RUR ####[facility] Egmhdvhxra7[address] [place], [place] [address]Dr. Elba Anthony Nitrite Ql (U) Negative Normal NEGATIVE The [facility] Comment on above: Performed By: #### E RUR ####[facility] Vwtlhfavnb7549 [place] [address]Dr. Elba Anthony pH (U) 5.0 [pH] Normal 5-9 [facility] Comment on above: Performed By: #### E RUR ####[facility] Wzawlxmolc[address] [place], [place] [address]Dr. Elba Anthony SPEC GRAVITY <=1.005 Abnormal 1.005-<=1.02 5 [facility] Comment on above: Performed By: #### E RUR ####[facility] Jbrnuybvas[address] [place], [place] [address]Dr. Elba Anthony UA PROTEIN Negative Normal NEGATIVE/ TRACE [facility] Comment on above: Performed By: #### E RUR ####[facility] Iewmunjvqq[address] [place], [place] [address]Dr. Elba Anthony UR MICRO IND NOT INDICATED Normal [facility] [facility] Comment on above: Performed By: #### E RUR ####[facility] Dnztmlrwdg[address] [place], [place] [address]Dr. Elba Anthony Urobilinogen Qn (U) 0.2 {Caden'U}/dL Normal 0.2 - 1. 0 [facility] Comment on above: Performed By: #### E RUR ####[facility] Vvkcwtjqfd[address] [place], [place] [address]Dr. Elba Anthony PROF 14(COMP METB)on 022 Albumin [Mass/Vol] 2.9 g/dL Critically low 3.4-5.0 [facility] Comment on above: Performed By: #### C MP, BNP ####[facility] Uhdngoqned39[address] [place], [place] [address]Dr. Elba Anthony Albumin/Globulin [Mass ratio] 0.6 {ratio} Normal [facility] Comment on above: Performed By: #### C MP, BNP ####[facility] Eyuqquseuf2832[address] [place], [place] [address]Dr. Elba Anthony ALP [Catalytic activity/Vol] 105 U/L Normal 46-116 [facility] Comment on above: Performed By: #### C MP, BNP ####[facility] [address] [place] [address]Dr. Elba Anthony ALT [Catalytic activity/Vol] 27 U/L Normal 16-63 [facility] Comment on above: Performed By: #### C MP, BNP ####[facility] Woscjwopgd[address] [place], [place] [address]Dr. Elba Anthony Anion gap [Moles/Vol] 10.7 mmol/L Normal Th [facility] Comment on above: Performed By: #### C MP, BNP ####[facility] Ydqiluiudv6201[address] [place], [place] [address]Dr. Elba Anthony AST [Catalytic activity/Vol] 20 U/L Normal 15-37 [facility] Comment on above: Performed By: #### C MP, BNP ####[facility] Zhripeuxlt218[address] [place], [place] [address]Dr. Elba Anthony Bilirubin [Mass/Vol] 1.1 mg/dL Critically high 0.2-1.0 [facility] Comment on above: Performed By: #### C MP, BNP ####[facility] Qjkyqocwqz3[address] [place], [place] [address]Dr. Elba Anthony Calcium [Mass/Vol] 8.2 mg/dL Critically low 8.5-10.1 [facility] Comment on above: Performed By: #### C MP, BNP ####[facility] Emtdicvjgi18[address] [place], [place] [address]Dr. Elba Anthony Chloride [Moles/Vol] 99 mmol/L Normal 98-107 [facility] Comment on above: Performed By: #### C MP, BNP ####[facility] Cqvrjjrqnu2017[address] [place], [place] [address]Dr. Elba Anthony CO2 [Moles/Vol] 28.6 mmol/L Normal 21.0-32.0 [facility] Comment on above: Performed By: #### C MP, BNP ####[facility] Broeglarvk9396[address] [place], [place] [address]Dr. Elba Anthony Creatinine [Mass/Vol] 2.06 mg/dL Critically high 0.70-1.30 [facility] Comment on above: Performed By: #### C MP, BNP ####[facility] Dsxxsmzoij[address] [place] [address]Dr. Elba Anthony EGFR-AF BENINESE 39 mL/min/1.73m2 Critically low >=60 [facility] Comment on above: Performed By: #### C MP, BNP ####[facility] Iugrcpxopj40[address] [place] [id number]. Elba Anthony EGFR-NON AF BENINESE 32 mL/min/1.73m2 Critically low >=60 [facility] Comment on above: Performed By: #### C MP, BNP ####[facility] Bjwzuvhekx4[address] [place] [address]Dr. Elba Anthony Globulin (S) [Mass/Vol] 4.6 g/dL Normal [facility] Comment on above: Performed By: #### C MP, BNP ####[facility] Clcfqenwkt1377[address] [place], [place] [address]Dr. Elba Anthony Glucose [Mass/Vol] 113 mg/dL Critically high 74-106 [facility] Comment on above: Performed By: #### C MP, BNP ####[facility] Pynhcdtaix1850[address] [place], [place] [address]Dr. Elab Raj Potassium [Moles/Vol] 4.3 mmol/L Normal 3.5-5.1 [facility] Comment on above: Performed By: #### C MP, BNP ####[facility] Uivzkyxmme359[address] [place], [place] [address]Dr. Elba Anthony Protein [Mass/Vol] 7.5 g/dL Normal 6.1-8.2 [facility] Comment on above: Performed By: #### C MP, BNP ####[facility] Cypobkehst7[address] [place] [address]Dr. Elba Anthony Sodium [Moles/Vol] 134 mmol/L Critically low 136-145 Th [facility] Comment on above: Performed By: #### C MP, BNP ####[facility] Ejidivgouf0036[address] [place], [place] [address]Dr. Nereydasiobhan Raj Urea nitrogen [Mass/Vol] 48.0 mg/dL Critically high 7.0-18.0 [facility] Comment on above: Performed By: #### C MP, BNP ####[facility] Bphxdfmugv[address] [place] [address]Dr. Elba Anthony Urea nitrogen/Creatinine [Mass ratio] 23.3 mg/mg Normal [facility] Comment on above: Performed By: #### C MP, BNP ####[facility] Padgmcfhyo[address] [place] [id number]. Elba Anthony US ARLIN DOP LEG LTon 01-08-20 22 US ARLIN DOP LEG LT Normal [facility] XR CHEST 1 Von 01-07-2022 XR CHEST 1 V Normal [facility] CBC AUTO DIFFon 12-17-2021 BASO # 0.0 103/ul Normal 0.0-0.1 [facility] Comment on above: Performed By: #### C BC ####[facility] Eorjcmspfz[address] [place] [address]Dr. Elba Anthony Basophils/100 WBC (Bld) 0.1 % Critically low 0.2-2.0 [facility] Comment on above: Performed By: #### C BC ####[facility] Jrzxwaexzj2586[address] [place], [place] [address]DrLatoya Anthony EO # 0.1 103/ul Normal 0.0-0.7 [facility] Comment on above: Performed By: #### C BC ####[facility] Ubtgophrsh[address] [place], [place] [address]Dr. Elba Anthony Eosinophils/100 WBC (Bld) 1.2 % Normal 0.9-7.0 [facility] Comment on above: Performed By: #### C BC ####[facility] Wsreiqqsxu9[address] [place] [id number]. Elba Anthony Erythrocyte distribution width (RBC) [Ratio] 18.6 % Critically high 11.0-15.0 [facility] Comment on above: Performed By: #### C BC ####[facility] Wuerpxmxmj29[address] [place] [address]Dr. Elba Anthony Hematocrit (Bld) [Volume fraction] 29.8 % Critically low 42.0-54.0 [facility] Comment on above: Performed By: #### C BC ####[facility] Vzmuuvftiu45[address] [place] [address]Dr. Elba Raj Hemoglobin (Bld) [Mass/Vol] 9.0 g/dL Critically low 14.0-18.0 [facility] Comment on above: Performed By: #### C BC ####[facility] Rwlkqsdioo5859[address] [place], [place] [address]Dr. Elba Anthony IG # 0.05 10e3/ul Critically high 0.00-0.03 [facility] Comment on above: Performed By: #### C BC ####[facility] Yetxowrktm51[address] [place], [place] [address]Dr. Elba Anthony IG % 0.6 % Critically high 0.0-0.5 [facility] Comment on above: Performed By: #### C BC ####[facility] Vhovtfrqvh2486[address] [place], [place] [address]Dr. Elba Anthony LYMPH # 0.4 103/ul Critically low 1.2-3.8 [facility] Comment on above: Performed By: #### C BC ####[facility] Vemktbbxye944[address] [place], [place] [address]Dr. Elba Anthony Lymphocytes/100 WBC (Bld) 4.0 % Critically low 20.5-60.0 [facility] Comment on above: Performed By: #### C BC ####[facility] Aluozqhjqk[address] [place], [place] [address]Dr. Elba Anthony MANUAL DIFF REQ NO Normal [facility] Comment on above: Performed By: #### C BC ####[facility] Yihnqkylek69[address] [place], [place] [address]Dr. Elba Anthony MCH (RBC) [Entitic mass] 25.2 pg Critically low 25.9-34.0 [facility] Comment on above: Performed By: #### C BC ####[facility] Ykflesxztp25[address] [place], [place] [address]Dr. Elba Anthony MCHC (RBC) [Mass/Vol] 30.2 g/dL Normal 29.9-35.2 [facility] Comment on above: Performed By: #### C BC ####[facility] Qkztchysbb82[address] [place] [id number]. Elba Anthony MCV (RBC) [Entitic vol] 83.5 fL Normal 80.0-94.0 [facility] Comment on above: Performed By: #### C BC ####[facility] Bypgblmhbb1337 [place] [id number]. Elba Anthony MONO # 0.9 103/ul Critically high 0.3-0.8 [facility] Comment on above: Performed By: #### C BC ####[facility] Ohxaaxcxrk13[address] [place] [address]Dr. Elba Raj Monocytes/100 WBC (Bld) 9.7 % Normal 1.7-12.0 [facility] Comment on above: Performed By: #### C BC ####[facility] Ynmkiqllvc689[address] [place], [place] [address]Dr. Elba Raj NEUT # 7.6 103/ul Critically high 1.4-6.5 [facility] Comment on above: Performed By: #### C BC ####[facility] Rhzynsywrz032[address] [place], [place] [address]Dr. Elba Raj Neutrophils/100 WBC (Bld) 84.4 % Critically high 43.0-75.0 [facility] Comment on above: Performed By: #### C BC ####[facility] Cdhtsiqjjo037[address] [place], [place] [address]Dr. Elba Raj Platelet mean volume (Bld) [Entitic vol] 10.0 fL Normal 9.5-13.5 [facility] Comment on above: Performed By: #### C BC ####[facility] Pjcfigltad3749[address] [place], [place] [address]Dr. Elba Anthony PLT 154 103/ul Normal 150-450 [facility] Comment on above: Performed By: #### C BC ####[facility] Xxlcrfgywq94[address] [place] [id number]. Elba Anthony RBC 3.57 106/ul Critically low 4.70-6.10 [facility] Comment on above: Performed By: #### C BC ####[facility] Hfanlmaowz[address] [place] [address]Dr. Elba Anthony WBC 9.0 103/ul Normal 4.0-11.0 [facility] Comment on above: Performed By: #### C BC ####[facility] Wrdsaisiqs13[address] [place] [address]Dr. Elba Anthony PROF 14(COMP METB)on 022 Albumin [Mass/Vol] 2.3 g/dL Critically low 3.4-5.0 [facility] Comment on above: Performed By: #### C MP ####[facility] Nlqospkmom[address] [place] [address]Dr. Elba Anthony Albumin/Globulin [Mass ratio] 0.6 {ratio} Normal [facility] Comment on above: Performed By: #### C MP ####[facility] Iywnshlwuf[address] [place], [place] [address]Dr. Elba Anthony ALP [Catalytic activity/Vol] 75 U/L Normal 46-116 [facility] Comment on above: Performed By: #### C MP ####[facility] Hkwzkfgvjw01[address] [place], [place] [address]Dr. Elba Anthony ALT [Catalytic activity/Vol] 30 U/L Normal 16-63 [facility] Comment on above: Performed By: #### C MP ####[facility] Jyenwvzfjy79[address] [place], [place] [address]Dr. Elba Anthony Anion gap [Moles/Vol] 11.6 mmol/L Normal Th [facility] Comment on above: Performed By: #### C MP ####[facility] Gvzarsfdcj[address] [place] [address]Dr. Elba Anthony AST [Catalytic activity/Vol] 26 U/L Normal 15-37 [facility] Comment on above: Performed By: #### C MP ####[facility] Umlkzsqalj6[address] [place] [address]Dr. Elba Anthony Bilirubin [Mass/Vol] 0.9 mg/dL Normal 0.2-1.3 [facility] Comment on above: Performed By: #### C MP ####[facility] Ddovykdbly27[address] [place] [id number]. Elba Anthony Calcium [Mass/Vol] 8.1 mg/dL Critically low 8.5-10.1 Th [facility] Comment on above: Performed By: #### C MP ####[facility] Lfzixbnyop58[address] [place] [id number]. Elba Raj Chloride [Moles/Vol] 101 mmol/L Normal 98-107 [facility] Comment on above: Performed By: #### C MP ####[facility] Tltxvkmwda4[address] [place] [address]Dr. Elba Anthony CO2 [Moles/Vol] 26.2 mmol/L Normal 22.0-30.0 [facility] Comment on above: Performed By: #### C MP ####[facility] Klzgohzrdc7[address] [place], [place] [address]Dr. Elba Raj Creatinine [Mass/Vol] 2.26 mg/dL Critically high 0.66-1.25 [facility] Comment on above: Performed By: #### C MP ####[facility] Iplyjfodkc65[address] [place], [place] [address]Dr. Elba Raj EGFR-AF BENINESE 35 mL/min/1.73m2 Critically low >=60 [facility] Comment on above: Performed By: #### C MP ####[facility] Krjzartcyu08[address] [place], [place] [address]Dr. Elba Raj EGFR-NON AF BENINESE 29 mL/min/1.73m2 Critically low >=60 [facility] Comment on above: Performed By: #### C MP ####[facility] Iudynrpbso7[address] [place], [place] [address]Dr. Elba Anthony Globulin (S) [Mass/Vol] 4.1 g/dL Normal [facility] Comment on above: Performed By: #### C MP ####[facility] Uyiwhrocxo6[address] [place] [address]Dr. Elba Anthony Glucose [Mass/Vol] 110 mg/dL Critically high 74-106 T [facility] Comment on above: Performed By: #### C MP ####[facility] Nkhukfdnem2952 [place] [id number]. Elba Anthony Potassium [Moles/Vol] 3.8 mmol/L Normal 3.4-5.0 [facility] Comment on above: Performed By: #### C MP ####[facility] Xlxtsfdoji[address] [place] [id number]. Elba Anthony Protein [Mass/Vol] 6.4 g/dL Normal 6.1-8.2 [facility] Comment on above: Performed By: #### C MP ####[facility] Wglfkwxxij32[address] [place] [address]Dr. Elba Anthony Sodium [Moles/Vol] 135 mmol/L Critically low 137-145 Th [facility] Comment on above: Performed By: #### C MP ####[facility] Saxoavbhtj7[address] [place], [place] [address]Dr. Elba Raj Urea nitrogen [Mass/Vol] 49.0 mg/dL Critically high 7.0-18.0 [facility] Comment on above: Performed By: #### C MP ####[facility] Iulqfgjbwk20[address] [place], [place] [address]Dr. Elba Raj Urea nitrogen/Creatinine [Mass ratio] 21.7 mg/mg Normal [facility] Comment on above: Performed By: #### C MP ####[facility] Cxhrxecjdw480[address] [place], [place] [address]Dr. Elba Anthony BLOOD CULTURE ID/SENSon 04-1 Aerobe ID + Suscept Final report Abnormal [facility] Comment on above: Performed By: #### C XPOSBL ####[facility] Rfjdleulko[address] [place], [place] [address]Dr. Elba Anthony Antimicrobial Susceptibility Comment Normal [facility] Comment on above: Result Comment: S = Susceptible; I = Intermediate; R = Resistant P = Positive; N = Negative MICS are expressed in micrograms per mL Antibiotic RSLT#1 RSLT#2 RSLT#3 RSLT#4Amikacin SCefepime SCeftazidime SCiprofloxacin SGentamicin SImipenem SLevofloxacin SMeropenem SPiperacillin STicarcillin STobramycin S Performed By: #### C XPOSBL ####[facility] [address] [place] [address]Dr. Nereydasiobhan Anthony Result 1 Comment Abnormal [facility] Comment on above: Result Comment: Pseu domonas aeruginosaReceived aerobic bottle only. Performed By: #### C XPOSBL ####[facility] [address]vjkpndq[address] [place], [place] [address]Dr. Nereydasiobhan Anthony Result Comment: Pseu domonas aeruginosaReceived anaerobic bottle only. CBC AUTO DIFFon 12-16-2021 BASO # 0.0 103/ul Normal 0.0-0.1 [facility] Comment on above: Performed By: #### C BC ####[facility] Intsywnrsq6798[address] [place], [place] [address]Dr. Elba Anthony Basophils/100 WBC (Bld) 0.3 % Normal 0.2-2.0 [facility] Comment on above: Performed By: #### C BC ####[facility] Yekyqimbwi9[address] [place], [place] [address]Dr. Elba Anthony EO # 0.1 103/ul Normal 0.0-0.7 [facility] Comment on above: Performed By: #### C BC ####[facility] Foumpphwrx15[address] [place], [place] [address]Dr. Elba Anthony Eosinophils/100 WBC (Bld) 1.7 % Normal 0.9-7.0 [facility] Comment on above: Performed By: #### C BC ####[facility] Lajwvobcfr89[address] [place], [place] [address]Dr. Elba Anthony Erythrocyte distribution width (RBC) [Ratio] 18.8 % Critically high 11.0-15.0 [facility] Comment on above: Performed By: #### C BC ####[facility] Sjilsuqfub[address] [place], [place] [address]Dr. Elba Anthony Hematocrit (Bld) [Volume fraction] 28.8 % Critically low 42.0-54.0 [facility] Comment on above: Performed By: #### C BC ####[facility] Rxtclwejcw[address] [place] [address]Dr. Elba Anthony Hemoglobin (Bld) [Mass/Vol] 8.6 g/dL Critically low 14.0-18.0 [facility] Comment on above: Performed By: #### C BC ####[facility] Ykglawpkmn4[address] [place] [address]Dr. Elba Anthony IG # 0.05 10e3/ul Critically high 0.00-0.03 [facility] Comment on above: Performed By: #### C BC ####[facility] Jkyzeccbtd39[address] [place] [address]Dr. Elba Anthony IG % 0.7 % Critically high 0.0-0.5 [facility] Comment on above: Performed By: #### C BC ####[facility] Cfvbmkerur4[address] [place], [place] [address]Dr. Elba Anthony LYMPH # 0.4 103/ul Critically low 1.2-3.8 [facility] Comment on above: Performed By: #### C BC ####[facility] Ccbvhbcavh[address] [place] [address]Dr. Elba Anthony Lymphocytes/100 WBC (Bld) 5.4 % Critically low 20.5-60.0 [facility] Comment on above: Performed By: #### C BC ####[facility] Kstvyrexhe[address] [place] [address]Dr. Elba Anthony MANUAL DIFF REQ NO Normal [facility] Comment on above: Performed By: #### C BC ####[facility] Ryxsvrxrnk[address] [place], [place] [address]Dr. Elba Anthony MCH (RBC) [Entitic mass] 25.0 pg Critically low 25.9-34.0 [facility] Comment on above: Performed By: #### C BC ####[facility] Ifrueqncza[address] [place], [place] [address]Dr. Elba Anthony MCHC (RBC) [Mass/Vol] 29.9 g/dL Normal 29.9-35.2 [facility] Comment on above: Performed By: #### C BC ####[facility] Pycrxhufww[address] [place] [id number]. Elba Anthony MCV (RBC) [Entitic vol] 83.7 fL Normal 80.0-94.0 [facility] Comment on above: Performed By: #### C BC ####[facility] Onmfmsbmwd16[address] [place] [id number]. Elba Anthony MONO # 0.7 103/ul Normal 0.3-0.8 [facility] Comment on above: Performed By: #### C BC ####[facility] Fbktobrmcy[address] [place], [place] [address]Dr. Elba Anthony Monocytes/100 WBC (Bld) 10.2 % Normal 1.7-12.0 [facility] Comment on above: Performed By: #### C BC ####[facility] Upajanryvd3047[address] [place], [place] [address]Dr. Elba Anthony NEUT # 5.9 103/ul Normal 1.4-6.5 [facility] Comment on above: Performed By: #### C BC ####[facility] Qptymqvhqd17[address] [place], [place] [address]Dr. Elba Anthony Neutrophils/100 WBC (Bld) 81.7 % Critically high 43.0-75.0 [facility] Comment on above: Performed By: #### C BC ####[facility] Ahxlgqedde[address] [place], [place] [address]Dr. Elba Anthony Platelet mean volume (Bld) [Entitic vol] 10.8 fL Normal 9.5-13.5 [facility] Comment on above: Performed By: #### C BC ####[facility] Idtvqmdbpt[address] [place], [place] [id number]. Elba Anthony PLT 150 103/ul Normal 150-450 [facility] Comment on above: Performed By: #### C BC ####[facility] F[address]ad[address]vvmzq[address] [place], [place] [address]Dr. Elba Anthony RBC 3.44 106/ul Critically low 4.70-6.10 [facility] Comment on above: Performed By: #### C BC ####[facility] Akhevydcjl24[address] [place] [address]Dr. Elba Anthony WBC 7.2 103/ul Normal 4.0-11.0 [facility] Comment on above: Performed By: #### C BC ####[facility] Qqqvvlfzcn7260 [place] [address]Dr. Elba Anthony PROF 14(COMP METB)on 022 Albumin [Mass/Vol] 2.3 g/dL Critically low 3.4-5.0 [facility] Comment on above: Performed By: #### C MP ####[facility] Dkkxbutzwy13[address] [place] [address]Dr. Elba Anthony Albumin/Globulin [Mass ratio] 0.6 {ratio} Normal [facility] Comment on above: Performed By: #### C MP ####[facility] Vhdhaqhosg4[address] [place], [place] [address]Dr. Elba Anthony ALP [Catalytic activity/Vol] 77 U/L Normal 46-116 [facility] Comment on above: Performed By: #### C MP ####[facility] Fmsnnrxixx8[address] [place] [address]Dr. Elba Anthony ALT [Catalytic activity/Vol] 26 U/L Normal 16-63 [facility] Comment on above: Performed By: #### C MP ####[facility] Bexrkuxruf[address] [place] [address]Dr. Elba Anthony Anion gap [Moles/Vol] 12.3 mmol/L Normal [facility] Comment on above: Performed By: #### C MP ####[facility] Asxdftwzhm39[address] [place] [address]Dr. Elba Anthony AST [Catalytic activity/Vol] 23 U/L Normal 15-37 [facility] Comment on above: Performed By: #### C MP ####[facility] Wvhhsglsry59[address] [place] [address]Dr. Elba Anthony Bilirubin [Mass/Vol] 0.8 mg/dL Normal 0.2-1.3 [facility] Comment on above: Performed By: #### C MP ####[facility] Pokejtuzix[address] [place] [id number]. Elba Anthony Calcium [Mass/Vol] 8.0 mg/dL Critically low 8.5-10.1 Th e [facility] Comment on above: Performed By: #### C MP ####[facility] Zcjebvulcu7[address] [place] [id number]. Elba Anthony Chloride [Moles/Vol] 101 mmol/L Normal 98-107 [facility] Comment on above: Performed By: #### C MP ####[facility] Jmxzjevzsp25[address] [place] [address]Dr. Elba Anthony CO2 [Moles/Vol] 25.8 mmol/L Normal 22.0-30.0 [facility] Comment on above: Performed By: #### C MP ####[facility] Xqtzowprea[address] [place], [place] [address]Dr. Elba Anthony Creatinine [Mass/Vol] 2.72 mg/dL Critically high 0.66-1.25 [facility] Comment on above: Performed By: #### C MP ####[facility] Nbrorxjabt9[address] [place], [place] [address]Dr. Elba Anthony EGFR-AF BENINESE 28 mL/min/1.73m2 Critically low >=60 [facility] Comment on above: Performed By: #### C MP ####[facility] Fopgsrghnr[address] [place], [place] [address]Dr. Elba Anthony EGFR-NON AF BENINESE 23 mL/min/1.73m2 Critically low >=60 [facility] Comment on above: Performed By: #### C MP ####[facility] Inqhgefwnr[address] [place], [place] [address]Dr. Elba Anthony Globulin (S) [Mass/Vol] 4.1 g/dL Normal [facility] Comment on above: Performed By: #### C MP ####[facility] Mqzfetzjez[address] [place], [place] [address]Dr. Elba Anthony Glucose [Mass/Vol] 130 mg/dL Critically high 74-106 T [facility] Comment on above: Performed By: #### C MP ####[facility] Gnrihtfexy8[address] [place], [place] [address]Dr. Elba Anthony Potassium [Moles/Vol] 4.1 mmol/L Normal 3.4-5.0 [facility] Comment on above: Performed By: #### C MP ####[facility] Dyxelzbjdc07[address] [place], [place] [address]Dr. Elba Anthony Protein [Mass/Vol] 6.4 g/dL Normal 6.1-8.2 [facility] Comment on above: Performed By: #### C MP ####[facility] Umnopcromf75[address] [place], [place] [address]Dr. Elba Anthony Sodium [Moles/Vol] 135 mmol/L Critically low 137-145 Th [facility] Comment on above: Performed By: #### C MP ####[facility] Pzbzutstlu74[address] [place], [place] [address]Dr. Elba Anthony Urea nitrogen [Mass/Vol] 60.0 mg/dL Critically high 7.0-18.0 [facility] Comment on above: Performed By: #### C MP ####[facility] Wyitwujyho3824[address] [place], [place] [address]Dr. Elba Anthony Urea nitrogen/Creatinine [Mass ratio] 22.1 mg/mg Normal [facility] Comment on above: Performed By: #### C MP ####[facility] Lvbowakqfw4465[address] [place], [place] [address]Dr. Elba Anthony BNPon 12-15-2021 Natriuretic peptide B (Bld) [Mass/Vol] 36671.0 pg/mL Critically high <=900.0 [facility] Comment on above: Result Comment: Test Repeated. Critical Value Verified Performed By: #### C MP, BNP, CRP ####[facility] Wydvyqygnu[address] [place], [place] [address]Dr. Elba Anthony CBC AUTO DIFFon 12-15-2021 BASO # 0.0 103/ul Normal 0.0-0.1 [facility] Comment on above: Performed By: #### C BC ####[facility] Skxsdzgirc495[address] [place], [place] [address]Dr. Elba Anthony Basophils/100 WBC (Bld) 0.2 % Normal 0.2-2.0 [facility] Comment on above: Performed By: #### C BC ####[facility] Rioqrvgagq8532[address] [place], [place] [address]Dr. Elba Anthony EO # 0.1 103/ul Normal 0.0-0.7 [facility] Comment on above: Performed By: #### C BC ####[facility] Yqwtmuyzog7416[address] [place], [place] [address]Dr. Elba Anthony Eosinophils/100 WBC (Bld) 1.3 % Normal 0.9-7.0 The [facility] Comment on above: Performed By: #### C BC ####[facility] Wmpcwygavl47[address] [place], [place] [address]Dr. Elba Anthony Erythrocyte distribution width (RBC) [Ratio] 19.0 % Critically high 11.0-15.0 The [facility] Comment on above: Performed By: #### C BC ####[facility] Ijsageqbty9958[address] [place], [place] [address]Dr. Elba Anthony Hematocrit (Bld) [Volume fraction] 28.7 % Critically low 42.0-54.0 The [facility] Comment on above: Performed By: #### C BC ####[facility] Mtdpwmobhq1078[address] [place], [place] [address]Dr. Elba Anthony Hemoglobin (Bld) [Mass/Vol] 8.7 g/dL Critically low 14.0-18.0 [facility] Comment on above: Performed By: #### C BC ####[facility] Qnlvlqfply9679[address] [place], [place] [address]Dr. Elba Raj IG # 0.04 10e3/ul Critically high 0.00-0.03 [facility] Comment on above: Performed By: #### C BC ####[facility] Noxsbkfgad[address] [place], [place] [address]Dr. Elba Raj IG % 0.5 % Normal 0.0-0.5 [facility] Comment on above: Performed By: #### C BC ####[facility] Koajarrwog[address] [place], [place] [id number]. Nereydasiobhan Anthony LYMPH # 0.4 103/ul Critically low 1.2-3.8 The [facility] Comment on above: Performed By: #### C BC ####[facility] [address]dmgim[address] [place] [address]Dr. Nereydasiobhan Anthony Lymphocytes/100 WBC (Bld) 4.2 % Critically low 20.5-60.0 The [facility] Comment on above: Performed By: #### C BC ####[facility] Aolleokxrm439[address] [place], [place] [address]Dr. Elba Anthony MANUAL DIFF REQ NO Normal [facility] Comment on above: Performed By: #### C BC ####[facility] Ukitvxgvpc15[address] [place] [address]Dr. Nereydasiobhan Anthony MCH (RBC) [Entitic mass] 25.5 pg Critically low 25.9-34.0 [facility] Comment on above: Performed By: #### C BC ####[facility] Gedlaaghqv[address]27[address] [place], [place] [address]Dr. Nereydasiobhan Anthony MCHC (RBC) [Mass/Vol] 30.3 g/dL Normal 29.9-35.2 [facility] Comment on above: Performed By: #### C BC ####[facility] Kvreotppzk9[address] [place], [place] [address]Dr. Elba Anthony MCV (RBC) [Entitic vol] 84.2 fL Normal 80.0-94.0 [facility] Comment on above: Performed By: #### C BC ####[facility] Htwmftltzy54[address] [place], [place] [address]Dr. Elba Anthony MONO # 0.6 103/ul Normal 0.3-0.8 The [facility] Comment on above: Performed By: #### C BC ####[facility] Kykixvleeq23[address] [place], [place] [address]Dr. Elba Anthony Monocytes/100 WBC (Bld) 7.5 % Normal 1.7-12.0 The [facility] Comment on above: Performed By: #### C BC ####[facility] Lirwdldfxj27[address] [place], [place] [address]Dr. Elba Anthony NEUT # 7.2 103/ul Critically high 1.4-6.5 The [facility] Comment on above: Performed By: #### C BC ####[facility] Wslniqdwgq8[address] [place] [address]Dr. Elba Anthony Neutrophils/100 WBC (Bld) 86.3 % Critically high 43.0-75.0 The [facility] Comment on above: Performed By: #### C BC ####[facility] Mxqhsbfosw57[address] [place] [address]Dr. Elba Anthony Platelet mean volume (Bld) [Entitic vol] 10.7 fL Normal 9.5-13.5 The [facility] Comment on above: Performed By: #### C BC ####[facility] Pkcfkbqykk8[address] [place] [address]Dr. Elba Anthony PLT 132 103/ul Critically low 150-450 [facility] Comment on above: Performed By: #### C BC ####[facility] Mxfwczoopu5[address] [place] [address]Dr. Elba Anthony RBC 3.41 106/ul Critically low 4.70-6.10 [facility] Comment on above: Performed By: #### C BC ####[facility] Vwfuxgphda27[address] [place] [address]Dr. Elba Anthony WBC 8.4 103/ul Normal 4.0-11.0 [facility] Comment on above: Performed By: #### C BC ####[facility] Chlytfbrhh15[address] [place] [address]Dr. Elba Anthony CRPon 12-15-2021 CRP [Mass/Vol] mg/L Critically high <=1.0 [facility] Comment on above: Performed By: #### C MP, BNP, CRP ####[facility] Wpcrwbtpvs3[address] [place] [address]DrLatoya Elba Raj PROF 14(COMP METB)on 022 Albumin [Mass/Vol] 2.4 g/dL Critically low 3.4-5.0 Th [facility] Comment on above: Performed By: #### C MP, BNP, CRP ####[facility] Fzgbvbsopz20[address] [place] [address]Dr. Elba Anthony Albumin/Globulin [Mass ratio] 0.6 {ratio} Normal [facility] Comment on above: Performed By: #### C MP, BNP, CRP ####[facility] Peprwkkwfj2135 [place] [address]Dr. Elba Anthony ALP [Catalytic activity/Vol] 75 U/L Normal 46-116 [facility] Comment on above: Performed By: #### C MP, BNP, CRP ####[facility] Rxgmckdwfv4746 [place] [address]Dr. Elba Anthony ALT [Catalytic activity/Vol] 22 U/L Normal 16-63 [facility] Comment on above: Performed By: #### C MP, BNP, CRP ####[facility] Pydxjugsqp3[address] [place] [address]Dr. Elba Anthony Anion gap [Moles/Vol] 13.8 mmol/L Normal [facility] Comment on above: Performed By: #### C MP, BNP, CRP ####[facility] Aszucldnyo[address] [place], [place] [address]Dr. Elba Anthony AST [Catalytic activity/Vol] 17 U/L Normal 15-37 [facility] Comment on above: Performed By: #### C MP, BNP, CRP ####[facility] Bospsrpknm048[address] [place], [place] [address]Dr. Elba Anthony Bilirubin [Mass/Vol] 0.8 mg/dL Normal 0.2-1.3 [facility] Comment on above: Performed By: #### C MP, BNP, CRP ####[facility] Fizsmrlyxi[address] [place] [address]Dr. Elba Anthony Calcium [Mass/Vol] 7.7 mg/dL Critically low 8.5-10.1 [facility] Comment on above: Performed By: #### C MP, BNP, CRP ####[facility] Ahdxqxyxcd38[address] [place] [address]Dr. Elba Anthony Chloride [Moles/Vol] 98 mmol/L Normal 98-107 [facility] Comment on above: Performed By: #### C MP, BNP, CRP ####[facility] Pcuwhzibfe8[address] [place] [address]Dr. Elba Anthony CO2 [Moles/Vol] 24.5 mmol/L Normal 22.0-30.0 [facility] Comment on above: Performed By: #### C MP, BNP, CRP ####[facility] Almghqdors47[address] [place] [address]Dr. Elba Anthony Creatinine [Mass/Vol] 3.10 mg/dL Critically high 0.66-1.25 [facility] Comment on above: Performed By: #### C MP, BNP, CRP ####[facility] Ahetqvnncc475[address] [place], [place] [address]Dr. Elba Anthony EGFR-AF BENINESE 24 mL/min/1.73m2 Critically low >=60 [facility] Comment on above: Performed By: #### C MP, BNP, CRP ####[facility] Hhbpaollnp75[address] [place], [place] [address]Dr. Elba Anthony EGFR-NON AF BENINESE 20 mL/min/1.73m2 Critically low >=60 [facility] Comment on above: Performed By: #### C MP, BNP, CRP ####[facility] Mzmwucbkex1160[address] [place], [place] [address]Dr. Elba Anthony Globulin (S) [Mass/Vol] 4.1 g/dL Normal [facility] Comment on above: Performed By: #### C MP, BNP, CRP ####[facility] Kcwwgveqmb27[address] [place] [address]Dr. Elba Anthony Glucose [Mass/Vol] 141 mg/dL Critically high 74-106 [facility] Comment on above: Performed By: #### C MP, BNP, CRP ####[facility] Clayvcwxnv5475[address] [place], [place] [address]Dr. Elba Anthony Potassium [Moles/Vol] 4.3 mmol/L Normal 3.4-5.0 [facility] Comment on above: Performed By: #### C MP, BNP, CRP ####[facility] Ijtifkhogu5[address] [place] [address]Dr. Elba Anthony Protein [Mass/Vol] 6.5 g/dL Normal 6.1-8.2 [facility] Comment on above: Performed By: #### C MP, BNP, CRP ####[facility] Meimybteua87[address] [place] [address]Dr. Elba Anthony Sodium [Moles/Vol] 132 mmol/L Critically low 137-145 Th [facility] Comment on above: Performed By: #### C MP, BNP, CRP ####[facility] Edrigurymp660[address] [place], [place] [address]Dr. Elba Anthony Urea nitrogen [Mass/Vol] 62.0 mg/dL Critically high 7.0-18.0 [facility] Comment on above: Performed By: #### C MP, BNP, CRP ####[facility] Dxprbqixxu500[address] [place], [place] [address]Dr. Elba Anthony Urea nitrogen/Creatinine [Mass ratio] 20.0 mg/mg Normal [facility] Comment on above: Performed By: #### C MP, BNP, CRP ####[facility] Mlwfummowx712[address] [place], [place] [address]Dr. Elba Anthony UA RANDOM W/MICROSCOPICon BACTERIA TRACE Abnormal NONE SEEN The [facility] Comment on above: Performed By: #### U AMIC ####[facility] Oxibytkvfi7257[address] [place], [place] [address]Dr. Elba Anthony Bilirubin Ql (U) Negative Normal NEGATIVE [facility] Comment on above: Performed By: #### U AMIC ####[facility] Bmfjyujrnc0612[address] [place], [place] [address]Dr. Elba Anthony CAST NONE SEEN Normal NONE SEEN The [facility] Comment on above: Performed By: #### U AMIC ####[facility] Pexmzunbvs2[address] [place], [place] [address]Dr. Elba Anthony Clarity (U) CLEAR Normal CLEAR [facility] Comment on above: Performed By: #### U AMIC ####[facility] Oxrsnwrabt[address] [place], [place] [address]Dr. Elba Anthony Color (U) LT. YELLOW Normal YELLOW [facility] Comment on above: Performed By: #### U AMIC ####[facility] Uovtpfglkg40[address] [place] [address]Dr. Elba Anthony Crystals LM Nom (Urine sed) SEEN Abnormal NONE SEEN The [facility] Comment on above: Performed By: #### U AMIC ####[facility] Slljksjtbf0175 [place] [id number]. Elba Anthony Epithelial cells LM Ql (Urine sed) RARE Normal NONE SEEN /RARE [facility] Comment on above: Performed By: #### U AMIC ####[facility] Fwwleowmpy1666 [place] [address]Dr. Elba Anthony Glucose Ql (U) Negative Normal NEGATIVE [facility] Comment on above: Performed By: #### U AMIC ####[facility] Rkewkwhwkl[address] [place], [place] [address]Dr. Elba Anthony Hemoglobin Ql (U) MODERATE Abnormal NEGATIVE [facility] Comment on above: Performed By: #### U AMIC ####[facility] Xybgzhdoch047[address] [place], [place] [address]Dr. Elba Anthony Ketones Ql (U) Negative Normal NEGATIVE [facility] Comment on above: Performed By: #### U AMIC ####[facility] Zamrdlmcsp6942 [place] [id number]. Elba Anthony LEUKOCYTES Negative Normal NEGATIVE [facility] Comment on above: Performed By: #### U AMIC ####[facility] Bporknappx[address] [place] [address]Dr. Elba Anthony MUCOUS NONE SEEN Normal NONE SEEN [facility] Comment on above: Performed By: #### U AMIC ####[facility] Sxkprgmtwb965[address] [place], [place] [address]Dr. Elba Anthony Nitrite Ql (U) Negative Normal NEGATIVE [facility] Comment on above: Performed By: #### U AMIC ####[facility] Wyjoyczupw5930 [place] [address]Dr. Elba Anthony pH (U) 5.5 [pH] Normal 5-9 [facility] Comment on above: Performed By: #### U AMIC ####[facility] Usrhcvhmia0651 [place] [address]Dr. Elba Anthony RBC 50-75 Abnormal 0-2 [facility] Comment on above: Performed By: #### U AMIC ####[facility] Ktoizkkiqk7754 [place] [address]Dr. Nereydasiobhan Anthony SPEC GRAVITY 1.015 Normal 1.005-<=1.02 5 [facility] Comment on above: Performed By: #### U AMIC ####[facility] Ncrrrnvnoo6304 [place] [address]Dr. Elba Anthony UA PROTEIN Negative Normal NEGATIVE/ TRACE [facility] Comment on above: Performed By: #### U AMIC ####[facility] Cihlvytlvu[address] [place], [place] [address]Dr. Elba Anthony URIC ACID CRYSTALS FEW Normal [facility] Comment on above: Performed By: #### U AMIC ####[facility] Tkvyfxyrgk8[address] [place], [place] [address]Dr. Nereydasiobhan Anthony Urobilinogen Qn (U) 0.2 {Caden'U}/dL Normal 0.2 - 1. 0 [facility] Comment on above: Performed By: #### U AMIC ####[facility] Yuihivgtyy8174[address] [place], [place] [address]Dr. Nereydasiobhan Anthony WBC 0-2 Abnormal NONE SEEN [facility] Comment on above: Performed By: #### U AMIC ####[facility] Taspylmtex[address]74 [place] [address]Dr. Elba Anthony BNPon 12-14-2021 Natriuretic peptide B (Bld) [Mass/Vol] 03357.0 pg/mL Critically high <=900.0 [facility] Comment on above: Result Comment: test repeated Performed By: #### C RP, CMP, BNP ####[facility] Tlqitmtqom14[address] [place], [place] [address]Dr. Elba Anthony CBC AUTO DIFFon 12-14-2021 BASO # 0.0 103/ul Normal 0.0-0.1 [facility] Comment on above: Performed By: #### C BC ####[facility] Sogongdovh5096 [place] [address]Dr. Elba Raj Basophils/100 WBC (Bld) 0.1 % Critically low 0.2-2.0 [facility] Comment on above: Performed By: #### C BC ####[facility] Wizdqtixks8715[address] [place], [place] [address]Dr. Nereydasiobhan Anthony EO # 0.1 103/ul Normal 0.0-0.7 [facility] Comment on above: Performed By: #### C BC ####[facility] Lsoexfyonu545[address] [place], [place] [address]Dr. Elba Raj Eosinophils/100 WBC (Bld) 1.1 % Normal 0.9-7.0 [facility] Comment on above: Performed By: #### C BC ####[facility] Xxoyfhrqqb1799[address] [place], [place] [address]Dr. Elba Raj Erythrocyte distribution width (RBC) [Ratio] 18.7 % Critically high 11.0-15.0 [facility] Comment on above: Performed By: #### C BC ####[facility] Eebcveazue8034[address] [place], [place] [address]Dr. Elba Anthony Hematocrit (Bld) [Volume fraction] 28.9 % Critically low 42.0-54.0 [facility] Comment on above: Performed By: #### C BC ####[facility] Yrawwzzdxg387[address] [place], [place] [address]Dr. Elba Anthony Hemoglobin (Bld) [Mass/Vol] 8.7 g/dL Critically low 14.0-18.0 [facility] Comment on above: Performed By: #### C BC ####[facility] Dfwnljvzxy3458[address] [place], [place] [address]Dr. Nereydasiobhan Anthony IG # 0.04 10e3/ul Critically high 0.00-0.03 [facility] Comment on above: Performed By: #### C BC ####[facility] Gjgiiirtqg68[address] [place], [place] [address]Dr. Nereydasiobhan Anthony IG % 0.4 % Normal 0.0-0.5 [facility] Comment on above: Performed By: #### C BC ####[facility] Rhfvvlfadn899[address] [place], [place] [address]DrLatoya Anthony LYMPH # 0.4 103/ul Critically low 1.2-3.8 [facility] Comment on above: Performed By: #### C BC ####[facility] Psqvphlevz3154[address] [place], [place] [address]DrLatoya Anthony Lymphocytes/100 WBC (Bld) 4.1 % Critically low 20.5-60.0 [facility] Comment on above: Result Comment: dif. not rqd. same as 12/12/21 Performed By: #### C BC ####[facility] Ctluowuwfp0629[address] [place], [place] [address]Dr. Elba Anthony MANUAL DIFF REQ NO Normal [facility] Comment on above: Performed By: #### C BC ####[facility] Fqldukcklj8569[address] [place], [place] [address]DrLatoya Anthony MCH (RBC) [Entitic mass] 25.3 pg Critically low 25.9-34.0 [facility] Comment on above: Performed By: #### C BC ####[facility] Xxtatawgvx6499[address] [place], [place] [address]DrLatoya Anthony MCHC (RBC) [Mass/Vol] 30.1 g/dL Normal 29.9-35.2 [facility] Comment on above: Performed By: #### C BC ####[facility] Yakjxxfdzb4[address] [place], [place] [address]DrLatoya Anthony MCV (RBC) [Entitic vol] 84.0 fL Normal 80.0-94.0 [facility] Comment on above: Performed By: #### C BC ####[facility] Qjlcdjbsug028[address] [place], [place] [address]Dr. Elba Anthony MONO # 0.9 103/ul Critically high 0.3-0.8 [facility] Comment on above: Performed By: #### C BC ####[facility] Uhanfawtsg[address] [place], [place] [address]DrLatoya Anthony Monocytes/100 WBC (Bld) 9.3 % Normal 1.7-12.0 [facility] Comment on above: Performed By: #### C BC ####[facility] Ucnseoozlr37[address] [place] [address]Dr. Elba Anthony NEUT # 7.8 103/ul Critically high 1.4-6.5 [facility] Comment on above: Performed By: #### C BC ####[facility] Wiyehqsgmk1443 [place] [address]Dr. Elba Anthony Neutrophils/100 WBC (Bld) 85.0 % Critically high 43.0-75.0 [facility] Comment on above: Performed By: #### C BC ####[facility] Budsvsrizh593[address] [place], [place] [address]Dr. Elba Anthony Platelet mean volume (Bld) [Entitic vol] 11.0 fL Normal 9.5-13.5 [facility] Comment on above: Performed By: #### C BC ####[facility] Vixdunxlrs75[address] [place], [place] [address]Dr. Elba Anthony PLT 117 103/ul Critically low 150-450 [facility] Comment on above: Performed By: #### C BC ####[facility] Gihengxkrz0777[address] [place], [place] [address]Dr. Elba Anthony RBC 3.44 106/ul Critically low 4.70-6.10 [facility] Comment on above: Performed By: #### C BC ####[facility] Rrwodenpuy88[address] [place], [place] [address]Dr. Elba Anthony WBC 9.2 103/ul Normal 4.0-11.0 [facility] Comment on above: Performed By: #### C BC ####[facility] Yfkitfxktr1110[address] [place], [place] [address]Dr. Elba Anthony CRPon 12-14-2021 CRP [Mass/Vol] mg/L Critically high <=1.0 [facility] Comment on above: Performed By: #### C RP, CMP, BNP ####[facility] Dakvlsryqo7[address] [place], [place] [address]Dr. Elba Anthony PROF 14(COMP METB)on 022 Albumin [Mass/Vol] 2.5 g/dL Critically low 3.4-5.0 [facility] Comment on above: Performed By: #### C RP, CMP, BNP ####[facility] Ypbbntzbkf3922 [place] [address]Dr. Elba Anthony Albumin/Globulin [Mass ratio] 0.6 {ratio} Normal [facility] Comment on above: Performed By: #### C RP, CMP, BNP ####[facility] Oclhyzxmxp9004 [place] [address]Dr. Elba Anthony ALP [Catalytic activity/Vol] 76 U/L Normal 46-116 [facility] Comment on above: Performed By: #### C RP, CMP, BNP ####[facility] Bpjzengexj6207 [place] [address]Dr. Elba Anthony ALT [Catalytic activity/Vol] 17 U/L Normal 16-63 [facility] Comment on above: Performed By: #### C RP, CMP, BNP ####[facility] Fdzvunpshw5937 [place] [address]Dr. Elba Anthony Anion gap [Moles/Vol] 13.3 mmol/L Normal [facility] Comment on above: Performed By: #### C RP, CMP, BNP ####[facility] Nkyqthpbiz8738 [place] [address]Dr. Elba Anthony AST [Catalytic activity/Vol] 22 U/L Normal 15-37 [facility] Comment on above: Performed By: #### C RP, CMP, BNP ####[facility] Nenmjxasux5480 [place] [address]Dr. Elba Anthony Bilirubin [Mass/Vol] 1.0 mg/dL Normal 0.2-1.3 [facility] Comment on above: Performed By: #### C RP, CMP, BNP ####[facility] Gzewpdxlvw3553 [place] [address]Dr. Elba Anthony Calcium [Mass/Vol] 8.1 mg/dL Critically low 8.5-10.1 [facility] Comment on above: Performed By: #### C RP, CMP, BNP ####[facility] Rmyytazock[address] [place] [address]Dr. Elba Anthony Chloride [Moles/Vol] 97 mmol/L Critically low 98-107 [facility] Comment on above: Performed By: #### C RP, CMP, BNP ####[facility] [address] [place] [address]Dr. Elba Anthony CO2 [Moles/Vol] 25.0 mmol/L Normal 22.0-30.0 [facility] Comment on above: Performed By: #### C RP, CMP, BNP ####[facility] Biosgkvgip[address] [place] [address]Dr. Elba Raj Creatinine [Mass/Vol] 2.85 mg/dL Critically high 0.66-1.25 [facility] Comment on above: Performed By: #### C RP, CMP, BNP ####[facility] Aypfssonej[address] [place], [place] [address]Dr. Elba Raj EGFR-AF BENINESE 27 mL/min/1.73m2 Critically low >=60 [facility] Comment on above: Performed By: #### C RP, CMP, BNP ####[facility] Oqupclqcqu[address] [place], [place] [address]Dr. Elba Raj EGFR-NON AF BENINESE 22 mL/min/1.73m2 Critically low >=60 [facility] Comment on above: Performed By: #### C RP, CMP, BNP ####[facility] Vquinamdkr[address] [place] [address]Dr. Elba Raj Globulin (S) [Mass/Vol] 3.9 g/dL Normal [facility] Comment on above: Performed By: #### C RP, CMP, BNP ####[facility] Epawapopp[address] [place] [address]Dr. Nereydasiobhan Raj Glucose [Mass/Vol] 123 mg/dL Critically high 74-106 T [facility] Comment on above: Performed By: #### C RP, CMP, BNP ####[facility] Ggiycyffmk[address] [place], [place] [address]Dr. Elba Anthony Potassium [Moles/Vol] 4.3 mmol/L Normal 3.4-5.0 [facility] Comment on above: Performed By: #### C RP, CMP, BNP ####[facility] Zqdfbeoccj[address] [place] [address]Dr. Elba Anthony Protein [Mass/Vol] 6.4 g/dL Normal 6.1-8.2 [facility] Comment on above: Performed By: #### C RP, CMP, BNP ####[facility] Tevktwxuzq[address] [place] [address]Dr. Elba Anthony Sodium [Moles/Vol] 131 mmol/L Critically low 137-145 Th [facility] Comment on above: Performed By: #### C RP, CMP, BNP ####[facility] Abykpeybev[address] [place] [address]Dr. Elba Anthony Urea nitrogen [Mass/Vol] 57.0 mg/dL Critically high 7.0-18.0 [facility] Comment on above: Performed By: #### C RP, CMP, BNP ####[facility] Xgqjquritn[address] [place] [address]Dr. Elba Anthony Urea nitrogen/Creatinine [Mass ratio] 20.0 mg/mg Normal [facility] Comment on above: Performed By: #### C RP, CMP, BNP ####[facility] Xohtntpoah[address] [place] [address]Dr. Elba Anthony XR CHEST 1 Von 12-14-2021 XR CHEST 1 V Normal [facility] XR CHEST 1 V Normal [facility] BNPon 12-13-2021 Natriuretic peptide B (Bld) [Mass/Vol] 64744.0 pg/mL Critically high <=900.0 [facility] Comment on above: Performed By: #### B CITY ENGINEER ####[facility] Pubkogtksl0[address] [place], [place] [address]Dr. Elba Anthony CBC AUTO DIFFon 12-13-2021 BASO # 0.0 103/ul Normal 0.0-0.1 [facility] Comment on above: Performed By: #### C BC ####[facility] [address]uaazk[address] [place] [id number]. Elba Anthony Basophils/100 WBC (Bld) 0.1 % Critically low 0.2-2.0 [facility] Comment on above: Performed By: #### C BC ####[facility] T[address]ccuwzuz[address] [place], [place] [address]Dr. Elba Anthony EO # 0.0 103/ul Normal 0.0-0.7 [facility] Comment on above: Performed By: #### C BC ####[facility] Gnybfdmgrt[address] [place], [place] [address]Dr. Elba Anthony Eosinophils/100 WBC (Bld) 0.2 % Critically low 0.9-7.0 [facility] Comment on above: Performed By: #### C BC ####[facility] Dlhndjhfmj[address] [place], [place] [address]Dr. Elba Anthony Erythrocyte distribution width (RBC) [Ratio] 19.0 % Critically high 11.0-15.0 [facility] Comment on above: Performed By: #### C BC ####[facility] Lhcpdwmeqk[address] [place], [place] [address]Dr. Elba Anthony Hematocrit (Bld) [Volume fraction] 31.8 % Critically low 42.0-54.0 [facility] Comment on above: Performed By: #### C BC ####[facility] Qgwabbnnqw16[address] [place], [place] [address]Dr. Elba Anthony Hemoglobin (Bld) [Mass/Vol] 9.5 g/dL Critically low 14.0-18.0 [facility] Comment on above: Performed By: #### C BC ####[facility] Wlfxkyzvbr[address] [place], [place] [address]Dr. Elba Anthony IG # 0.05 10e3/ul Critically high 0.00-0.03 [facility] Comment on above: Performed By: #### C BC ####[facility] Ubmkursuja6[address] [place], [place] [address]Dr. Elba Anthony IG % 0.4 % Normal 0.0-0.5 [facility] Comment on above: Performed By: #### C BC ####[facility] [address]ipklnqiv[address] [place] [id number]. Elba Anthony LYMPH # 0.3 103/ul Critically low 1.2-3.8 [facility] Comment on above: Performed By: #### C BC ####[facility] Rubtwownbc[address] [place] [id number]. Elba Anthony Lymphocytes/100 WBC (Bld) 2.3 % Critically low 20.5-60.0 [facility] Comment on above: Result Comment: dif. not rqd. same as 12/12/21 Performed By: #### C BC ####[facility] Lpzraxboqd[address] [place], [place] [address]Dr. Elba Anthony MANUAL DIFF REQ NO Normal [facility] Comment on above: Performed By: #### C BC ####[facility] Gjytitxctb[address] [place], [place] [address]Dr. Elba Anthony MCH (RBC) [Entitic mass] 25.3 pg Critically low 25.9-34.0 [facility] Comment on above: Performed By: #### C BC ####[facility] Xwpraevlko4[address] [place], [place] [address]Dr. Nereydasiobhan Anthony MCHC (RBC) [Mass/Vol] 29.9 g/dL Normal 29.9-35.2 [facility] Comment on above: Performed By: #### C BC ####[facility] Y[address]qrowrft[address] [place], [place] [address]Dr. Elba Anthony MCV (RBC) [Entitic vol] 84.8 fL Normal 80.0-94.0 [facility] Comment on above: Performed By: #### C BC ####[facility] Laeyuodjpm[address] [place], [place] [address]Dr. Elba Anthony MONO # 0.8 103/ul Normal 0.3-0.8 [facility] Comment on above: Performed By: #### C BC ####[facility] [address] [place] [address]Dr. Elba Anthony Monocytes/100 WBC (Bld) 6.7 % Normal 1.7-12.0 [facility] Comment on above: Performed By: #### C BC ####[facility] Luwijftsys[address] [place] [id number]. Elba Anthony NEUT # 11.0 103/ul Critically high 1.4-6.5 [facility] Comment on above: Performed By: #### C BC ####[facility] Mccwsrwxza[address] [place] [id number]. Elba Anthony Neutrophils/100 WBC (Bld) 90.3 % Critically high 43.0-75.0 [facility] Comment on above: Performed By: #### C BC ####[facility] [address]kw[address]te[address] [place] [address]Dr. Elba Anthony Platelet mean volume (Bld) [Entitic vol] 10.8 fL Normal 9.5-13.5 [facility] Comment on above: Performed By: #### C BC ####[facility] [address]lmmdkv[address] [place] [address]Dr. Elba Anthony PLT 130 103/ul Critically low 150-450 [facility] Comment on above: Performed By: #### C BC ####[facility] Rhvfkmibhx[address] [place] [address]Dr. Elba Anthony RBC 3.75 106/ul Critically low 4.70-6.10 [facility] Comment on above: Performed By: #### C BC ####[facility] [address]zuef[address] [place] [address]DrLatoya Elba Anthony WBC 12.2 103/ul Critically high 4.0-11.0 [facility] Comment on above: Performed By: #### C BC ####[facility] [address]ft[address]uiw[address] [place] [id number] Elba Anthony CRPon 12-13-2021 CRP [Mass/Vol] mg/L Critically high <=1.0 [facility] Comment on above: Performed By: #### C MP, CRP ####[facility] Gcsx[address]ifvh[address] [place] [address]DrLatoya Elba Raj ECHO LIMITED STUDYon 022 ECHO LIMITED STUDY Normal [facility] PROF 14(COMP METB)on 022 Albumin [Mass/Vol] 2.9 g/dL Critically low 3.4-5.0 [facility] Comment on above: Performed By: #### C MP, CRP ####[facility] Sm[address]sevtsw[address] [place] [id number]. Elba Anthony Albumin/Globulin [Mass ratio] 0.7 {ratio} Normal [facility] Comment on above: Performed By: #### C MP, CRP ####[facility] Z[address]cazvjr[address] [place] [address]Dr. Elba Anthony ALP [Catalytic activity/Vol] 88 U/L Normal 46-116 [facility] Comment on above: Performed By: #### C MP, CRP ####[facility] Cnmyfnqnys[address] [place] [address]Dr. Elba Anthony ALT [Catalytic activity/Vol] 15 U/L Critically low 16-63 [facility] Comment on above: Performed By: #### C MP, CRP ####[facility] Dwwlggchze[address] [place] [address]Dr. Elba Anthony Anion gap [Moles/Vol] 15.1 mmol/L Normal [facility] Comment on above: Performed By: #### C MP, CRP ####[facility] Shqhvjtqws[address] [place] [address]Dr. Elba Anthony AST [Catalytic activity/Vol] 14 U/L Critically low 15-37 [facility] Comment on above: Performed By: #### C MP, CRP ####[facility] Jxzahyuucu[address] [place] [address]Dr. Elba Anthony Bilirubin [Mass/Vol] 1.5 mg/dL Critically high 0.2-1.3 [facility] Comment on above: Performed By: #### C MP, CRP ####[facility] Klbdgxquqm6[address] [place] [address]Dr. Elba Anthony Calcium [Mass/Vol] 8.6 mg/dL Normal 8.5-10.1 [facility] Comment on above: Performed By: #### C MP, CRP ####[facility] Smtmabvtss29[address] [place] [id number]. Elba Anthony Chloride [Moles/Vol] 99 mmol/L Normal 98-107 [facility] Comment on above: Performed By: #### C MP, CRP ####[facility] Ceqxwbksav[address] [place] [address]Dr. Elba Anthony CO2 [Moles/Vol] 24.3 mmol/L Normal 22.0-30.0 [facility] Comment on above: Performed By: #### C MP, CRP ####[facility] Ybkwzvlbfq34[address] [place] [address]Dr. Elba Anthony Creatinine [Mass/Vol] 2.52 mg/dL Critically high 0.66-1.25 [facility] Comment on above: Performed By: #### C MP, CRP ####[facility] Xoesnkinoo6[address] [place], [place] [address]Dr. Elba Raj EGFR-AF BENINESE 31 mL/min/1.73m2 Critically low >=60 [facility] Comment on above: Performed By: #### C MP, CRP ####[facility] Jaxfemrifu74[address] [place], [place] [address]Dr. Elba Anthony EGFR-NON AF BENINESE 25 mL/min/1.73m2 Critically low >=60 [facility] Comment on above: Performed By: #### C MP, CRP ####[facility] Cntnsthaqo[address] [place] [address]Dr. Elba Raj Globulin (S) [Mass/Vol] 3.9 g/dL Normal [facility] Comment on above: Performed By: #### C MP, CRP ####[facility] Kvnzohtmtc6[address] [place] [address]Dr. Elba Anthony Glucose [Mass/Vol] 133 mg/dL Critically high 74-106 [facility] Comment on above: Performed By: #### C MP, CRP ####[facility] Wllkcqgsmg85[address] [place], [place] [address]Dr. Elba Anthony Potassium [Moles/Vol] 4.4 mmol/L Normal 3.4-5.0 [facility] Comment on above: Performed By: #### C MP, CRP ####[facility] Hcqomktkkz26[address] [place] [address]Dr. Elba Anthony Protein [Mass/Vol] 6.8 g/dL Normal 6.1-8.2 [facility] Comment on above: Performed By: #### C MP, CRP ####[facility] Hqhatdrxrz[address] [place], [place] [address]Dr. Nereydasiobhan Raj Sodium [Moles/Vol] 134 mmol/L Critically low 137-145 Th [facility] Comment on above: Performed By: #### C MP, CRP ####[facility] Npvsgbuvkj10[address] [place], [place] [address]Dr. Nereydasiobhan Raj Urea nitrogen [Mass/Vol] 47.0 mg/dL Critically high 7.0-18.0 [facility] Comment on above: Performed By: #### C MP, CRP ####[facility] Okumwtwnes5725[address] [place], [place] [address]Dr. Elba Anthony Urea nitrogen/Creatinine [Mass ratio] 18.7 mg/mg Normal [facility] Comment on above: Performed By: #### C MP, CRP ####[facility] Gkfvuipqyi65[address] [place], [place] [address]Dr. Nereydasiobhan Raj T3, TOTAL (TRIIODOTHYRONINE) on 12-13-2021 T3, TOTAL 66 ng/dL Critically low 71-180 [facility] Comment on above: Performed By: #### T 3TOTAL ####[facility] Pewoisdmap0838[address] [place], [place] [address]Dr. Elba Anthony US KIDNEYS BLADDERon 022 US KIDNEYS BLADDER Normal [facility] BLOOD CULTURE ID PANELon A. baumannii Not detected Normal [facility] Comment on above: Performed By: #### B PABLO ####[facility] Rmafqrvyfy17[address] [place], [place] [address]Dr. Elba Anthony BCID CONTROLS PASSED Normal [facility] Comment on above: Performed By: #### B PABLO ####[facility] Lqzttqxczk66[address] [place], [place] [address]Dr. Elba Anthony BCIDBTHD BLOOD CULTURE BOTTLE INFORMATION Normal [facility] Comment on above: Performed By: #### B PABLO ####[facility] Zmufnnolzi7[address] [place] [id number]. Yisiobhan Anthony BCIDHD1 ANTIMICROBIAL RESIST ANCE GENES [facility] Comment on above: Performed By: #### B PABLO ####[facility] Pqlegibopa[address] [place], [place] [address]Dr. Elba Anthony BCIDHD2 SEE BELOW [facility] Comment on above: Result Comment: KPC- carbapenem resistance gene, mecA- methecillin resistance gene, van A/B- vancomycin resistance gene Note: Antimicrobial resitance can occur via multiple mechanisms. A Not Detected result for the [employer] antomicrobial resistance gene assays does not indicate antimicrobial susceptibility. Subculturing is required for specis identificationand susceptibility testing of isolates. Performed By: #### B PABLO ####[facility] Hygxwvzzxf[address] [place], [place] [address]Dr. Elba Anthony BCIDHD3 Positive [facility] Comment on above: Performed By: #### B PABLO ####[facility] Xfsyaevtio47[address] [place], [place] [address]Dr. Elba Anthony BCIDHD4 Negative [facility] Comment on above: Performed By: #### B PABLO ####[facility] Snmhkuzrdg[address] [place], [place] [address]Dr. Elba Anthony BCIDHD5 YEAST [facility] Comment on above: Performed By: #### B PABLO ####[facility] Dqfdzklmcl[address] [place], [place] [address]Dr. Elba Anthony BCIDHD6 SEE BELOW [facility] Comment on above: Result Comment: Note : All genus and species BCID [employer] results will be verified post subculturing via Maldi-Tof MS testing methodology. Performed By: #### B PABLO ####[facility] Mgfunmhvvn170[address] [place], [place] [address]Dr. Elba Anthony Bottle Set: Set 1 [facility] Comment on above: Performed By: #### B PABLO ####[facility] Cykfsdtsnt[address] [place], [place] [address]Dr. Elba Anthony Bottle: Aerobic Normal [facility] Comment on above: Performed By: #### B PABLO ####[facility] Cavqtfeyhm[address] [place] [address]Dr. Yilan Anthony Lorelei albicans Not detected Normal [facility] Comment on above: Performed By: #### B PABLO ####[facility] Tsyhfzpppo4[address] [place], [place] [address]Dr. Yilan Anthony Lorelei glabrata Not detected Normal [facility] Comment on above: Performed By: #### B PABLO ####[facility] Vndbyvemua2236[address] [place], [place] [address]Dr. Yilan Anthony Lorelei Krusei Not detected Normal [facility] Comment on above: Performed By: #### B PABLO ####[facility] Butxdvdxkk2508[address] [place], [place] [address]Dr. Yilan Anthony Lorelei Parapsilosis Not detected Normal [facility] Comment on above: Performed By: #### B PABLO ####[facility] Nefpqmnjck8984[address] [place], [place] [address]Dr. Yilan Anthony Lorelei Tropicalis Not detected Normal [facility] Comment on above: Performed By: #### B PABLO ####[facility] Uyxmsdanuo9386[address] [place], [place] [address]Dr. Yilan Anthony E. Cloacae complex Not detected Normal [facility] Comment on above: Performed By: #### B PABLO ####[facility] Mfeirmhmjp9290[address] [place], [place] [address]Dr. Yilan Anthony Enterobacteriaceae Not detected Normal [facility] Comment on above: Performed By: #### B PABLO ####[facility] Cmgowdhkfh7386[address] [place], [place] [address]Dr. Yilan Anthony Enterococcus Not detected Normal [facility] Comment on above: Performed By: #### B PABLO ####[facility] Qgxnpuznwd792[address] [place], [place] [address]Dr. Yilan Anthony Escheria coli Not detected Normal [facility] Comment on above: Performed By: #### B PABLO ####[facility] Iijllxuroz3670[address] [place], [place] [address]Dr. Elba Anthony K. oxytoca Not detected Normal [facility] Comment on above: Performed By: #### B PABLO ####[facility] Tsxscwllnr04[address] [place] [address]Dr. Elba Anthony K. pneumoniae Not detected Normal [facility] Comment on above: Performed By: #### B PABLO ####[facility] Goyovripyu[address] [place] [address]Dr. Elba Anthony KPC Resistant Gene Not detected Normal [facility] Comment on above: Performed By: #### B PABLO ####[facility] Pvtevvpxjo97[address] [place], [place] [address]Dr. Elba Anthony List. monocytogenes Not detected Normal [facility] Comment on above: Performed By: #### B PABLO ####[facility] Lcmhoqpqcf4[address] [place], [place] [address]Dr. Elba Anthony mecA Resistant Gene Not Applicable Normal [facility] Comment on above: Performed By: #### B PABLO ####[facility] Rycysacanf[address] [place], [place] [address]Dr. Elba Anthony Proteus Not detected Normal [facility] Comment on above: Performed By: #### B PABLO ####[facility] Mkeohscove[address] [place], [place] [address]Dr. Elba Anthony Pseud. aeruginosa Detected Critically abnormal [facility] Comment on above: Performed By: #### B PABLO ####[facility] Ergpcaufxe6534[address] [place], [place] [address]Dr. Elba Anthony Seratia marcescens Not detected Normal [facility] Comment on above: Performed By: #### B PABLO ####[facility] Epicbveayp407[address] [place], [place] [address]Dr. Elba Anthony Site: Left hand Normal [facility] Comment on above: Performed By: #### B PABLO ####[facility] Ialoxebcge07[address] [place], [place] [address]Dr. Elba Anthony Staph. aureus Not detected Normal [facility] Comment on above: Performed By: #### B PABLO ####[facility] Bugvsjpqao[address] [place], [place] [address]Dr. Elba Anthony Staphylococcus Not detected Normal [facility] Comment on above: Performed By: #### B PABLO ####[facility] Mfkysyhdfy[address] [place], [place] [address]Dr. Elba Anthony Strep. agalactiae Not detected Normal [facility] Comment on above: Performed By: #### B PABLO ####[facility] Jtrxtagzag9388[address] [place], [place] [address]Dr. Elba Anthony Strep. pneumoniae Not detected Normal [facility] Comment on above: Performed By: #### B PABLO ####[facility] Sjuuyuikyn[address] [place], [place] [address]Dr. Elba Anthony Strep. pyogenes Not detected Normal [facility] Comment on above: Performed By: #### B PABLO ####[facility] Wslmrmrbbt20[address] [place], [place] [address]Dr. Elba Anthony Streptococcus Not detected Normal [facility] Comment on above: Performed By: #### B PABLO ####[facility] Xhzuemwoet[address] [place], [place] [address]Dr. Elba Anthony Soledad/B Resist. Gene Not Applicable Normal [facility] Comment on above: Performed By: #### B PABLO ####[facility] Xasgcaygoc[address] [place], [place] [address]Dr. Elba Anthony BNPon 12-12-2021 Natriuretic peptide B (Bld) [Mass/Vol] 95049.0 pg/mL Critically high <=900.0 [facility] Comment on above: Result Comment: test repeated critical value verified Performed By: #### B MP, BNP, HSTROPN ####[facility] Htcxvgkqyk[address] [place], [place] [address]Dr. Elba Raj CARDIAC FADY 3-6on 2 CK [Catalytic activity/Vol] 29 U/L Critically low 55-170 [facility] Comment on above: Performed By: #### C MREP ####[facility] Kxcdwtrdut4[address] [place], [place] [address]Dr. Elba Raj CK.MB [Mass/Vol] 1.26 ng/mL Normal <=2.37 [facility] Comment on above: Performed By: #### C MREP ####[facility] [address]yrptzul[address] [place] [address]Dr. Elba Anthony HSTROP 27.4 pg/mL Normal 4.0-42.2 [facility] Comment on above: Result Comment: CUT- OFF POINTS HAVE BEEN ESTABLISHED BASED ON THE FOURTH UNIVERSAL DEFINITIONS OF MYOCARDIALINFARCTION. THE UPPER REFERENCE LIMIT (URL) OF TROPONIN, DEFINED THE 99TH PERCENTILE OFcTnI DISTRIBUTION IN A REFERENCE POPULATION, HAS BEEN CONFIRMED THE DECISION THRESHOLDFOR ND DIAGNOSIS. Performed By: #### C MREP ####[facility] V[address]havphqeo[address] [place] [address]Dr. Nereydasiobhan Anthony CK [Catalytic activity/Vol] 23 U/L Critically low 55-170 [facility] Comment on above: Performed By: #### C MREP ####[facility] Uhsbpkbwmk[address] [place] [address]Dr. Elba Anthony CK.MB [Mass/Vol] 1.41 ng/mL Normal <=2.37 [facility] Comment on above: Performed By: #### C MREP ####[facility] Btjrmzyxxg5[address] [place] [address]Dr. Elba Raj HSTROP 27.2 pg/mL Normal 4.0-42.2 [facility] Comment on above: Result Comment: CUT- OFF POINTS HAVE BEEN ESTABLISHED BASED ON THE FOURTH UNIVERSAL DEFINITIONS OF MYOCARDIALINFARCTION. THE UPPER REFERENCE LIMIT (URL) OF TROPONIN, DEFINED THE 99TH PERCENTILE OFcTnI DISTRIBUTION IN A REFERENCE POPULATION, HAS BEEN CONFIRMED THE DECISION THRESHOLDFOR ND DIAGNOSIS. Performed By: #### C MREP ####[facility] [address]zu[address] [place] [address]Dr. Elba Anthony CBC W MANUAL DIFFon 12-13-19 22 ATYPICAL LYMPH # Normal [facility] Comment on above: Performed By: #### C SULEIMANMAN ####[facility] [id number] [place] [address]Dr. Elba Anthony ATYPICAL LYMPH % Normal [facility] Comment on above: Performed By: #### C ADALGISA ####[facility] Emcqyihjwv300[address] [place] [id number]. Yilan Anthony BAND # Normal 0.0-0.3 [facility] Comment on above: Performed By: #### C ADALGISA ####[facility] Xlwaqjouxq3[address] [place] [address]Dr. Yilan Anthony BAND % Normal 0-5 [facility] Comment on above: Performed By: #### C ADALGISA ####[facility] Bmoaivleel37[address] [place] [address]Dr. Yilan Anthony BASOM # 0.00 103/ul Normal 0.00-0.10 [facility] Comment on above: Performed By: #### C ADALGISA ####[facility] Dzbdwg[address] [place], [place] [address]Dr. Yilan Anthony BASOM % 0.0 % Critically low 0.2-2.0 [facility] Comment on above: Performed By: #### C ADALGISA ####[facility] Yrvmuuowco[address] [place], [place] [address]Dr. Yilan Anthony BLAST # Normal [facility] Comment on above: Performed By: #### C ADALGISA ####[facility] Jvfeqareyw[address] [place], [place] [address]Dr. Yilan Anthony BLAST % Normal [facility] Comment on above: Performed By: #### C ADALGISA ####[facility] Bowwxiocyy[address] [place], [place] [address]Dr. Yilan Anthony CORRECTED WBC Normal 4.0-11.0 [facility] Comment on above: Performed By: #### C ADALGISA ####[facility] Ybiuolgjfi[address] [place], [place] [address]Dr. Yilan Anthony EOS # 0.00 103/ul Normal 0.00-0.70 [facility] Comment on above: Performed By: #### C ADALGISA ####[facility] Wyfxmoezmu65[address] [place], [place] [address]Dr. Yilan Anthony EOS% 0.0 % Critically low 0.9-7.0 [facility] Comment on above: Performed By: #### C ADALGISA ####[facility] Eyumjjeqyo7533 [place], [place] [address]Wo. Elba Anthony HCT 34.1 % Critically low 42.0-54.0 [facility] Comment on above: Performed By: #### C ADALGISA ####[facility] Hppnillrxy6031 [place], [place] [address]Qn. Elba Anthony HGB 10.1 g/dl Critically low 14.0-18.0 [facility] Comment on above: Performed By: #### C ADALGISA ####[facility] Dtfdqvwypm6442 [place], [place] [address]Kb. Elba Anthony LYMPHM # 0.32 103/ul Critically low 1.20-3.80 [facility] Comment on above: Performed By: #### C ADALGISA ####[facility] Ninxfcfico2862 [place], [place] [address]Le. Elba Anthony LYMPHM% 3.0 % Critically low 20.5-60.0 [facility] Comment on above: Performed By: #### C ADALGISA ####[facility] Knboytjrml5832 [place], [place] [address]Yw. Elba Anthony MCH 25.5 pg Critically low 25.9-34.0 [facility] Comment on above: Performed By: #### C ADALGISA ####[facility] Yjvyvokoln7965 [place], [place] [address]El. Elba Anthony MCHC 29.6 g/dl Critically low 29.9-35.2 [facility] Comment on above: Performed By: #### C ADALGISA ####[facility] Zsqeyxvryw3641 [place], [place] [address]Qh. Elba Anthony MCV 86.1 fL Normal 80.0-94.0 [facility] Comment on above: Performed By: #### C ADALGISA ####[facility] Ypefbhxuvi9471 [place], [place] [address]Mu. Elba Anthony METAMYELOCYTE # Normal [facility] Comment on above: Performed By: #### C ADALGISA ####[facility] Qugpfhzdze0354 [place], [place] [address]De. Elba Anthony METAMYELOCYTE % Normal [facility] Comment on above: Performed By: #### C ADALGISA ####[facility] Cicwgkfydv2571 [place] [address]Dr. Elba Anthony MONOM# 0.11 103/ul Critically low 0.30-0.80 [facility] Comment on above: Performed By: #### C ADALGISA ####[facility] Lnmlzsfaey3379 [place] [address]Dr. Elba Anthony MONOM% 1.0 % Critically low 1.7-12.0 [facility] Comment on above: Performed By: #### C ADALGISA ####[facility] Gwjzddfikz8926 [place] [address]Dr. Elba Anthony MPV 10.4 fL Normal 9.5-13.5 [facility] Comment on above: Performed By: #### C ADALGISA ####[facility] Chhwcvzwlz8[address] [place], [place] [address]Dr. Elba Anthony MYELOCYTE # Normal [facility] Comment on above: Performed By: #### C ADALGISA ####[facility] Ukcmwfeyji34[address] [place], [place] [address]Dr. Elba Anthony MYELOCYTE % Normal [facility] Comment on above: Performed By: #### C ADALGISA ####[facility] Sudawcembz98[address] [place], [place] [address]Dr. Elba Anthony NRBC Normal [facility] Comment on above: Performed By: #### C ADALGISA ####[facility] Jrcymhpuek117[address] [place], [place] [address]Dr. Elba Anthony OVALOCYTES SLIGHT Normal [facility] Comment on above: Performed By: #### C ADALGISA ####[facility] Piprgsmrxm4824 [place] [address]Dr. Elba Anthony PLT 154 103/ul Normal 150-450 [facility] Comment on above: Performed By: #### C ADALGISA ####[facility] Aqlhygpyrr4[address] [place], [place] [address]Dr. Nereydasiobhan Anthony POIKILOCYTOSIS 1+ Normal [facility] Comment on above: Performed By: #### C ADALGISA ####[facility] Xrqttvkehc8119 [place] [id number]. Elba Anthony RBC 3.96 106/ul Critically low 4.70-6.10 [facility] Comment on above: Performed By: #### C ADALGISA ####[facility] Gdsumroxqg7145 [place] [id number]. Elba Anthony RDW 19.0 % Critically high 11.0-15.0 [facility] Comment on above: Performed By: #### C ADALGISA ####[facility] Eekttjlqny1806 [place] [id number]. Elba Anthony SEG # 10.37 103/ul Critically high 1.40-6.50 [facility] Comment on above: Performed By: #### C ADALGISA ####[facility] Cogmyepmik[address] [place], [place] [address]Dr. Elba Anthony SEG % 96.0 % Critically high 43.0-75.0 [facility] Comment on above: Performed By: #### C ADALGISA ####[facility] Bhuusnykoi[address] [place], [place] [address]Dr. Elba Anthony TEAR DROP CELLS SLIGHT Normal [facility] Comment on above: Performed By: #### C ADALGISA ####[facility] Oscjyvyuaq[address] [place], [place] [address]Dr. Elba Anthony WBC 10.8 103/ul Normal 4.0-11.0 [facility] Comment on above: Performed By: #### C ADALGISA ####[facility] Spyuykcwww[address] [place], [place] [address]Dr. Elba Anthony CRPon 12-12-2021 CRP 3.1 mg/dL Critically high <=1.0 [facility] Comment on above: Performed By: #### C RP, TSH, T4 ####[facility] Mqjktlafcl[address] [place], [place] [address]Dr. Elba Anthony CULTURE BLOODon 12-12-2021 Microscopic examination of blood, culture Culture Observations: Positive blood culture. Aerobic & anaerobic bottles. BCID=Pseudomonas aeruginosa Culture Observations: Sending to [facility] for workup. Normal [facility] Comment on above: Performed By: #### B LDCX2 ####[facility] Kkmzzdxelp1596 [place], [place] [address]Jz. Elba Anthony Microscopic examination of blood, culture Culture Observations: Positive blood culture. Aerobic bottle. BCID= Pseudomonas aeruginosa. Culture Observations: Sending to [facility] for workup. Culture Observations: NO GROWTH AT 5 DAYS. ANAEROBIC BOTTLE Normal [facility] Comment on above: Performed By: #### B LDCX1 ####[facility] Qnzthiaasx7476 [place], [place] [address]Sy. Elba Anthony Covid-19 PCR (CVDTB)on SARS-CoV-2 (COVID-19) RNA ELIZABETH+probe Ql (Unsp spec) Not detected Normal NOT DETECTED [facility] Comment on above: Result Comment: When diagnostic testing is negative, the possibility of a false negative should be considered inthe context of a patient's recent exposures and the presence of clinical signs and symptomsconsistent with SARS-CoV-2.This test is not yet approved or cleared by the [place] Food and Drug Administration (FDA).This test was developed by [employer], [place], [place]. The performance characteristics ofthis test were validated by The [facility]. The results are not intended to beused as the sole means for clinical diagnosis or patient management decisions. The [place] is authorized under Clinical Laboratory Improvement Amendments (CLIA) to perform high-complexity testing.This test is not yet approved or cleared by the [place] FDA. When there are no FDA-approved or cleared tests available, and other criteria are met, FDA can make tests available under an emergency access mechanism called an Emergency Use Authorization (EUA). The EUA for this test is supported by the Equalizer Operator of Health and Human Service's declaration that [...] used). Performed By: #### C VDTBH ####[facility] Zdqbkmivbc8[address] [place] [address]Dr. Elba Anthony LACTATE/LACTIC ACIDon 2021 Lactate [Moles/Vol] 2.0 mmol/L Normal 0.7-2.0 [facility] Comment on above: Performed By: #### L ACT ####[facility] Ejqgegvqzl84[address] [place] [address]Dr. Elba Anthony Lactate [Moles/Vol] 1.7 mmol/L Normal 0.7-2.0 [facility] Comment on above: Performed By: #### L ACT ####[facility] Vgegyraplz1276 [place] [address]Dr. Elba Anthony PROF CHEM 8 (BAS METB)on Anion gap [Moles/Vol] 14.7 mmol/L Normal [facility] Comment on above: Performed By: #### B MP, BNP, HSTROPN ####[facility] Yewpgvabol[address] [place], [place] [address]Dr. Elba Anthony Calcium [Mass/Vol] 8.6 mg/dL Normal 8.5-10.1 [facility] Comment on above: Performed By: #### B MP, BNP, HSTROPN ####[facility] Gyxhlriswx[address] [place], [place] [address]Dr. Elba Anthony Chloride [Moles/Vol] 102 mmol/L Normal 98-107 [facility] Comment on above: Performed By: #### B MP, BNP, HSTROPN ####[facility] Hjdhyfwhpf[address] [place], [place] [address]Dr. Elba Anthony CO2 [Moles/Vol] 25.4 mmol/L Normal 22.0-30.0 [facility] Comment on above: Performed By: #### B MP, BNP, HSTROPN ####[facility] Egezpcdbro[address] [place], [place] [address]Dr. Elba Anthony Creatinine [Mass/Vol] 2.29 mg/dL Critically high 0.66-1.25 [facility] Comment on above: Performed By: #### B MP, BNP, HSTROPN ####[facility] Xkasqdpzzp450[address] [place] [address]Dr. Elba Anthony EGFR-AF BENINESE 35 mL/min/1.73m2 Critically low >=60 [facility] Comment on above: Performed By: #### B MP, BNP, HSTROPN ####[facility] Uk[address]vsykwy[address] [place] [address]Dr. Elba Anthony EGFR-NON AF BENINESE 28 mL/min/1.73m2 Critically low >=60 [facility] Comment on above: Performed By: #### B MP, BNP, HSTROPN ####[facility] Mynrfspqxw4595 [place] [address]Dr. Elba Anthony Glucose [Mass/Vol] 130 mg/dL Critically high 74-106 [facility] Comment on above: Performed By: #### B MP, BNP, HSTROPN ####[facility] Clfqipqnxd[address] [place], [place] [address]Dr. Elba Anthony Potassium [Moles/Vol] 4.1 mmol/L Normal 3.4-5.0 [facility] Comment on above: Performed By: #### B MP, BNP, HSTROPN ####[facility] Khmeiyemdz[address] [place], [place] [address]Dr. Elba Anthony Sodium [Moles/Vol] 138 mmol/L Normal 137-145 [facility] Comment on above: Performed By: #### B MP, BNP, HSTROPN ####[facility] Cslcqrfnjp[address] [place], [place] [address]Dr. Elba Anthony Urea nitrogen [Mass/Vol] 43.0 mg/dL Critically high 7.0-18.0 [facility] Comment on above: Performed By: #### B MP, BNP, HSTROPN ####[facility] Clzbowbjze[address] [place], [place] [address]Dr. Elba Anthony Urea nitrogen/Creatinine [Mass ratio] 18.8 mg/mg Normal [facility] Comment on above: Performed By: #### B MP, BNP, HSTROPN ####[facility] Wqiggamgnn[address] [place], [place] [address]Dr. Elba Anthony T4on 12-12-2021 T4 [Mass/Vol] 11.10 ug/dL Critically high 5.53-11.00 [facility] Comment on above: Performed By: #### C RP, TSH, T4 ####[facility] Btdfygoaye74[address] [place] [address]Dr. Elba Anthony TROPONIN, HIGH SENSITIVITYon 12-12-2021 HSTROP 26.2 pg/mL Normal 4.0-42.2 [facility] Comment on above: Result Comment: CUT- OFF POINTS HAVE BEEN ESTABLISHED BASED ON THE FOURTH UNIVERSAL DEFINITIONS OF MYOCARDIALINFARCTION. THE UPPER REFERENCE LIMIT (URL) OF TROPONIN, DEFINED THE 99TH PERCENTILE OFcTnI DISTRIBUTION IN A REFERENCE POPULATION, HAS BEEN CONFIRMED THE DECISION THRESHOLDFOR ND DIAGNOSIS. Performed By: #### B MP, BNP, HSTROPN ####[facility] Komnrxtmln[address] [place] [address]Dr. Elba Anthony TSHon 12-12-2021 TSH 1.233 uIU/mL Normal 0.470-4.680 [facility] Comment on above: Performed By: #### C RP, TSH, T4 ####[facility] Vazbytrxgp28[address] [place] [address]Dr. Elba Anthony TSH RANGE SEE BELOW Normal [facility] Comment on above: Result Comment: <0.3 4 UIU/ml HYPERTHYROID 0.34-5.60 UIU/ml EUTHYROID >5.60 UIU/ml HYPOTHYROID Performed By: #### C RP, TSH, T4 ####[facility] Tfusklrhwp68[address] [place] [address]Dr. Elba Anthony US ARLIN DOP LEG RTon 12-13-19 22 US ARLIN DOP LEG RT Normal [facility] XR TIB_FIB RT 2Von 2 XR TIB_FIB RT 2V Normal [facility] APTTon 08-01-2021 aPTT Coag (Bld) [Time] 34.5 s Normal 25.0-35.0 [facility] Comment on above: Result Comment: ALL [...] PURPOSE. Performed By: #### 5 0103 #### [facility] [address] [place] [address], [facility] BASIC METABOLIC PANELon 11-2 Calcium [Mass/Vol] 8.6 mg/dL Normal 8.6-10.3 [facility] Comment on above: Order Comment: No: D o not add to previous draw Performed By: #### 3 2044 #### [facility] [address] [place] [address], [facility] Chloride [Moles/Vol] 108 mmol/L High 98-107 [facility] Comment on above: Order Comment: No: D o not add to previous draw Performed By: #### 3 2044 #### [facility] [address] [place] [id number], [facility] CO2 [Moles/Vol] 20 mmol/L Low 21-31 [facility] Comment on above: Order Comment: No: D o not add to previous draw Performed By: #### 3 2044 #### [facility] [address] [place] [id number], [facility] Creatinine [Mass/Vol] 2.66 mg/dL High 0.70-1.30 [facility] Comment on above: Order Comment: No: D o not add to previous draw Performed By: #### 3 2044 #### [facility] [address] [place] [address], [facility] eGFR- 29 ml/min/1.73sq m Abnormal >60 [facility] Comment on above: Order Comment: No: D o not add to previous draw Performed By: #### 3 2044 #### [facility] [address] [place], [place] [address] eGFR- non- 24 ml/min/1.73sq m Abnormal >60 [facility] Comment on above: Order Comment: No: D o not add to previous draw Performed By: #### 3 2044 #### [facility] [address] [place] [address], [place] Glucose [Mass/Vol] 125 mg/dL High 70-100 [facility] Comment on above: Order Comment: No: D o not add to previous draw Performed By: #### 3 2044 #### [facility] [address] [place] [address], [place] Potassium [Moles/Vol] 4.4 mmol/L Normal 3.5-5.1 [facility] Comment on above: Order Comment: No: D o not add to previous draw Performed By: #### 3 2044 #### [facility] [address] [place] [address], [place] Sodium [Moles/Vol] 138 mmol/L Normal 136-145 [facility] Comment on above: Order Comment: No: D o not add to previous draw Performed By: #### 3 2044 #### [facility] [address] [place] [address], [place] Urea nitrogen [Mass/Vol] 54 mg/dL High 7-25 [facility] Comment on above: Order Comment: No: D o not add to previous draw Performed By: #### 3 2044 #### [facility] [address] [place] [address], [place] Calcium [Mass/Vol] 8.5 mg/dL Low 8.6-10.3 [facility] Comment on above: Order Comment: No: D o not add to previous draw Performed By: #### 5 102 #### [facility] [address] [place] [address], [place] Chloride [Moles/Vol] 107 mmol/L Normal 98-107 [facility] Comment on above: Order Comment: No: D o not add to previous draw Performed By: #### 5 0103 #### [facility] [address] [place] [address], [place] CO2 [Moles/Vol] 23 mmol/L Normal 21-31 [facility] Comment on above: Order Comment: No: D o not add to previous draw Performed By: #### 5 0103 #### [facility] [address] [place] [address], [place] Creatinine [Mass/Vol] 2.86 mg/dL High 0.70-1.30 [facility] Comment on above: Order Comment: No: D o not add to previous draw Performed By: #### 5 0103 #### [facility] [address] [place] [address], [place] eGFR- 27 ml/min/1.73sq m Abnormal >60 [facility] Comment on above: Order Comment: No: D o not add to previous draw Performed By: #### 5 0103 #### [facility] [address] [place] [address], [place] eGFR- non- 22 ml/min/1.73sq m Abnormal >60 [facility] Comment on above: Order Comment: No: D o not add to previous draw Performed By: #### 5 0103 #### [facility] [address] [place] [address], [place] Glucose [Mass/Vol] 114 mg/dL High 70-100 [facility] Comment on above: Order Comment: No: D o not add to previous draw Performed By: #### 5 0103 #### [facility] [address] [place] [address], [place] Potassium [Moles/Vol] 4.5 mmol/L Normal 3.5-5.1 [facility] Comment on above: Order Comment: No: D o not add to previous draw Performed By: #### 5 0103 #### [facility] [address] [facility] [place] [address], [facility] Sodium [Moles/Vol] 138 mmol/L Normal 136-145 [facility] Comment on above: Order Comment: No: D o not add to previous draw Performed By: #### 5 0103 #### [facility] [address] [facility] [place] [address], [facility] Urea nitrogen [Mass/Vol] 58 mg/dL High 7-25 [facility] Comment on above: Order Comment: No: D o not add to previous draw Performed By: #### 5 0103 #### [facility] [address] [place] [address], [facility] CBC W/DIFFon 08-01-2021 ABS IMM GRANS 0.0 10*3/uL Normal 0.0-0.2 [facility] Comment on above: Order Comment: No: D o not add to previous draw Performed By: #### 5 0103 #### [facility] [address] [place] [address], [facility] ABS NEUTROPHILS 5.7 10*3/uL Normal 1.6-7.6 [facility] Comment on above: Order Comment: No: D o not add to previous draw Performed By: #### 5 0103 #### [facility] [address] [facility] [place] [address], [facility] Basophils (Bld) [#/Vol] 0.0 10*3/uL Normal 0.0-0.2 [facility] Comment on above: Order Comment: No: D o not add to previous draw Performed By: #### 5 0103 #### [facility] [address] [facility] [place] [address], [facility] Basophils/100 WBC (Bld) 0.4 % Normal 0.0-1.0 [facility] Comment on above: Order Comment: No: D o not add to previous draw Performed By: #### 5 0103 #### [facility] [address] Eosinophils (Bld) [#/Vol] 0.0 10*3/uL Normal 0.0-0.5 [facility] Comment on above: Order Comment: No: D o not add to previous draw Performed By: #### 5 0103 #### [facility] [address] [facility] [address], [facility] Eosinophils/100 WBC (Bld) 0.6 % Normal 0.0-6.0 [facility] Comment on above: Order Comment: No: D o not add to previous draw Performed By: #### 5 0103 #### [facility] [address] Erythrocyte distribution width (RBC) [Ratio] 14.8 % Normal 11.5-15.0 [facility] Comment on above: Order Comment: No: D o not add to previous draw Performed By: #### 5 0103 #### [facility] [address] Hematocrit (Bld) [Volume fraction] 37.0 % Low 39.0-50.0 [facility] Comment on above: Order Comment: No: D o not add to previous draw Performed By: #### 5 0103 #### [facility] [address] [place] [address], [facility] Hemoglobin (Bld) [Mass/Vol] 11.4 g/dL Low 13.0-17.0 [facility] Comment on above: Order Comment: No: D o not add to previous draw Performed By: #### 5 0103 #### [facility] [address] [place] [address], [facility] IMMATURE GRANS 0.4 % Normal 0.0-1.0 [facility] Comment on above: Order Comment: No: D o not add to previous draw Performed By: #### 5 0103 #### [facility] [address] [place] [address], [facility] Lymphocytes (Bld) [#/Vol] 0.4 10*3/uL Low 1.2-4.0 [facility] Comment on above: Order Comment: No: D o not add to previous draw Performed By: #### 5 0103 #### [facility] [address] [place] [address], [facility] Lymphocytes/100 WBC (Bld) 5.6 % Low 20.0-45.0 [facility] Comment on above: Order Comment: No: D o not add to previous draw Performed By: #### 5 0103 #### [facility] [address] MCH (RBC) [Entitic mass] 27.9 pg Normal 27.0-33.0 [facility] Comment on above: Order Comment: No: D o not add to previous draw Performed By: #### 5 0103 #### [facility] [address] [facility] MCHC (RBC) [Mass/Vol] 30.8 g/dL Low 32.0-35.0 [facility] Comment on above: Order Comment: No: D o not add to previous draw Performed By: #### 5 0103 #### [facility] [address] [place] [address], [facility] MCV (RBC) [Entitic vol] 90.5 fL Normal 82.0-98.0 [facility] Comment on above: Order Comment: No: D o not add to previous draw Performed By: #### 5 0103 #### [facility] [address] [place] [address], [facility] Monocytes (Bld) [#/Vol] 0.6 10*3/uL Normal 0.1-1.0 [facility] Comment on above: Order Comment: No: D o not add to previous draw Performed By: #### 5 3 #### [facility] [address] [place] [address], [facility] MONOS 8.7 % Normal 5.0-12.0 [facility] Comment on above: Order Comment: No: D o not add to previous draw Performed By: #### 5 0103 #### [facility] [address] [place] [address], [facility] Neutrophils/100 WBC (Bld) 84.3 % High 40.0-72.0 [facility] Comment on above: Order Comment: No: D o not add to previous draw Performed By: #### 5 0103 #### [facility] [address] [place] [address], [facility] Nucleated RBC/100 WBC (Bld) [Ratio] 0 % Normal 0-0 [facility] Comment on above: Order Comment: No: D o not add to previous draw Performed By: #### 5 0103 #### [facility] [address] [place] [address], [place] PLAT CNT 144 10*3/uL Low 150-400 [facility] Comment on above: Order Comment: No: D o not add to previous draw Performed By: #### 5 0103 #### [facility] [address] [place] [id number], [facility] RBC (Bld) [#/Vol] 4.09 10*6/uL Low 4.20-5.70 [facility] Comment on above: Order Comment: No: D o not add to previous draw Performed By: #### 5 0103 #### [facility] [address] [place] [address], [place] WBC (Bld) [#/Vol] 6.75 10*3/uL Normal 4.00-10.60 [facility] Comment on above: Order Comment: No: D o not add to previous draw Performed By: #### 5 0103 #### [facility] [address] [place] [address], [facility] CHEST AND LATERALon 08-01-20 CHEST AND LATERAL [facility] Department of Radiology [address] [place] [address] Patient Name: MAN PATEL : 1950 Sex: M Age: Race: White Pt. Location: [facility] Patient Status: I Ordered Date: 08/01/2021 [...] pneumothorax. Electronically signed: Dilcia Hernandez. Transcribed by: [email or web address], User Resident: Electronically Signed by: DILCIA HERNANDEZ @ 08/01/2021 08:57 AM Normal [facility] Comment on above: Order Comment: Check Pacemaker/AICD Lead Position, Chest X-ray PA \EANDE\ LAT in Dept ;DO NOT lift affected arm above shoulder. S/P pacemaker/ICD implant. Verify lead placement CPKon 08-01-2021 CK [Catalytic activity/Vol] 576 U/L High 30-223 [facility] Comment on above: Performed By: #### 5 0103 #### [address] Cardiovascular Lab Reporton 08-01-2021 Cardiovascular Lab Report [facility] Patient Name: [facility] Man MR #: [id number] Department of Physician: Inocencio Franks M.D. Medicine Service Date: 07/31/2021 Division of Birthdate: 1950 Cardiology Room #: 5AB [id number] Adult Cardiovascular Services [place] [address] Cardiovascular Laboratory Report INDICATION FOR PERMANENT PACEMAKER [...] silk suture. They were connected to a [employer] Edora dual-chamber pacing system. This was positioned [...] Vale/Inocencio Franks M.D. Date Trans: 08/01/2021 05:31 A/mmo [id number] Normal [facility] MAGNESIUM BLOODon 08-01-2021 Magnesium [Mass/Vol] 2.2 mg/dL Normal 1.9-2.7 [facility] Comment on above: Order Comment: No: D o not add to previous draw Performed By: #### 5 0103 #### [facility] [address] [facility]. [address] PHOSPHORUS BLOODon 1 Phosphate [Mass/Vol] 2.9 mg/dL Normal 2.5-5.0 [facility] Comment on above: Order Comment: No: D o not add to previous draw Performed By: #### 5 0103 #### [facility] [address] PROTHROMBIN TIMEon 1 INR Coag (PPP) [Relative time] 1.54 {INR} High 0.91-1.16 [facility] Comment on above: Order [...] 1995;108:231S-246S. Performed By: #### 5 0103 #### [facility] [address] PT Coag (PPP) [Time] 18.4 s High 12.3-14.8 [facility] Comment on above: Order Comment: No: D o not add to previous draw Result Comment: ALL RESULTS MUST BE INTERPRETED WITH RESPECT TO BLOOD DRAWING ARTIFACT OR DILUTION ERROR OF ANTICOAGULANT AT THE TIME OF SAMPLING. Performed By: #### 5 0103 #### [facility] [address] INR Coag (PPP) [Relative time] 1.68 {INR} High 0.91-1.16 [facility] Comment on above: Result Comment: ACCC [...] 1995;108:231S-246S. Performed By: #### 5 0103 #### [facility] [address] [place] [address], [facility] PT Coag (PPP) [Time] 19.7 s High 12.3-14.8 [facility] Comment on above: Result Comment: ALL RESULTS MUST BE INTERPRETED WITH RESPECT TO BLOOD DRAWING ARTIFACT OR DILUTION ERROR OF ANTICOAGULANT AT THE TIME OF SAMPLING. Performed By: #### 5 0103 #### [facility] [address] [place] [address], [facility] URIC ACID BLOODon 08-01-2021 Urate [Mass/Vol] 10.1 mg/dL High 4.4-7.6 [facility] Comment on above: Performed By: #### 5 102 #### [facility] [address] [place] [address], [facility] BASIC METABOLIC PANELon 11- Calcium [Mass/Vol] 7.3 mg/dL Low 8.6-10.3 [facility] Comment on above: Performed By: #### 3 2044 #### [facility] [address] [place] [address], [facility] Chloride [Moles/Vol] 111 mmol/L High 98-107 [facility] Comment on above: Performed By: #### 3 2044 #### [facility] [address] [place] [address], [facility] CO2 [Moles/Vol] 17 mmol/L Low 21-31 [facility] Comment on above: Performed By: #### 3 2044 #### [facility] [address] [place] [address], [facility] Creatinine [Mass/Vol] 2.68 mg/dL High 0.70-1.30 [facility] Comment on above: Performed By: #### 3 2044 #### [facility] [address] [place] [address], [facility] eGFR- 29 ml/min/1.73sq m Abnormal >60 [facility] Comment on above: Performed By: #### 3 2044 #### [facility] [address] eGFR- non- 24 ml/min/1.73sq m Abnormal >60 [facility] Comment on above: Performed By: #### 3 2044 #### [facility] [address] Glucose [Mass/Vol] 147 mg/dL High 70-100 [facility] Comment on above: Performed By: #### 3 2044 #### [facility] [address] Potassium [Moles/Vol] 4.4 mmol/L Normal 3.5-5.1 [facility] Comment on above: Performed By: #### 3 2044 #### [facility] [address] Sodium [Moles/Vol] 138 mmol/L Normal 136-145 [facility] Comment on above: Performed By: #### 3 2044 #### [facility] [address] Urea nitrogen [Mass/Vol] 55 mg/dL High 7-25 [facility] Comment on above: Performed By: #### 3 2044 #### [facility] [address] [facility] [place] [address], [facility] CBC W/DIFFon 07-31-2021 ABS IMM GRANS 0.0 10*3/uL Normal 0.0-0.2 [facility] Comment on above: Performed By: #### 5 102 #### [facility] [address] ABS NEUTROPHILS 10.7 10*3/uL High 1.6-7.6 [facility] Comment on above: Performed By: #### 5 0103 #### [facility] [address] [place] [address], [facility] Basophils (Bld) [#/Vol] 0.0 10*3/uL Normal 0.0-0.2 [facility] Comment on above: Performed By: #### 5 3 #### [facility] [address] [place] [id number], [facility] Basophils/100 WBC (Bld) 0.3 % Normal 0.0-1.0 [facility] Comment on above: Performed By: #### 3 #### [facility] [address] [place] [address], [facility] Eosinophils (Bld) [#/Vol] 0.1 10*3/uL Normal 0.0-0.5 [facility] Comment on above: Performed By: #### 3 #### [facility] [address] [place] [address], [facility] Eosinophils/100 WBC (Bld) 0.4 % Normal 0.0-6.0 [facility] Comment on above: Performed By: #### 5 3 #### [facility] [address] [facility] [place] [address], [facility] Erythrocyte distribution width (RBC) [Ratio] 14.6 % Normal 11.5-15.0 [facility] Comment on above: Performed By: #### 5 3 #### [facility] [address] [place] [address], [facility] Hematocrit (Bld) [Volume fraction] 44.3 % Normal 39.0-50.0 [facility] Comment on above: Performed By: #### 5 102 #### [facility] [address] [place] [address], [facility] Hemoglobin (Bld) [Mass/Vol] 13.6 g/dL Normal 13.0-17.0 [facility] Comment on above: Performed By: #### 5 0103 #### [facility] [address] IMMATURE GRANS 0.3 % Normal 0.0-1.0 [facility] Comment on above: Performed By: #### 5 3 #### [facility] [address] [place] [address], [facility] Lymphocytes (Bld) [#/Vol] 0.5 10*3/uL Low 1.2-4.0 [facility] Comment on above: Performed By: #### 3 #### [facility] [address] [place] [address], [facility] Lymphocytes/100 WBC (Bld) 4.1 % Low 20.0-45.0 [facility] Comment on above: Performed By: #### 102 #### [facility] [address] MCH (RBC) [Entitic mass] 27.6 pg Normal 27.0-33.0 [facility] Comment on above: Performed By: #### 5 3 #### [facility] [address] MCHC (RBC) [Mass/Vol] 30.7 g/dL Low 32.0-35.0 [facility] Comment on above: Performed By: #### 5 3 #### [facility] [address] MCV (RBC) [Entitic vol] 90.0 fL Normal 82.0-98.0 [facility] Comment on above: Performed By: #### 5 3 #### [facility] [address] [place] [address], [facility] Monocytes (Bld) [#/Vol] 1.0 10*3/uL Normal 0.1-1.0 [facility] Comment on above: Performed By: #### 3 #### [facility] [address] [facility] [place] [address], [facility] MONOS 8.3 % Normal 5.0-12.0 [facility] Comment on above: Performed By: #### 5 0103 #### [facility] [address] [place] [address], [facility] Neutrophils/100 WBC (Bld) 86.6 % High 40.0-72.0 [facility] Comment on above: Performed By: #### 5 0103 #### [facility] [address] [place] [address], [facility] Nucleated RBC/100 WBC (Bld) [Ratio] 0 % Normal 0-0 [facility] Comment on above: Performed By: #### 5 0103 #### [facility] [address] [place] [address], [facility] PLAT CNT 175 10*3/uL Normal 150-400 [facility] Comment on above: Performed By: #### 5 0103 #### [facility] [address] [facility] [place] [address], [facility] RBC (Bld) [#/Vol] 4.92 10*6/uL Normal 4.20-5.70 [facility] Comment on above: Performed By: #### 5 0103 #### [facility] [address] [facility] [place] [address], [facility] WBC (Bld) [#/Vol] 12.36 10*3/uL High 4.00-10.60 [facility] Comment on above: Performed By: #### 5 0103 #### [facility] [address] POC SARS COV2 ANTIGEN NEGATI VEon 07-31-2021 POC SARS COV2 ANTIGEN NEG Negative Normal NEGATIVE [facility] Comment on above: Result Comment: Nega [...] signs and symptoms consistent with COVID-19. The [employer] COVID-19 Ag Card is a lateral flow [...] of Accreditation. Performed By: #### 3 1977 ####[address] PORTABLE CHEST 1 VIEW - PORTABLE CHEST 1 VIEW [facility] Department of Radiology [address] [place] [id number] Patient Name: MAN PATEL : 1950 Sex: M Age: Race: White Pt. Location: [facility] Patient Status: E Ordered Date: 07/31/2021 [...] sternotomy. Electronically signed: Rinku Agrawal. Transcribed by: [email or web address], User Resident: Electronically Signed by: RINKU AGRAWAL @ 07/31/2021 01:03 PM Normal [facility] Comment on above: Order Comment: Evalu ate for Aspiration TROPONIN-Ion 07-31-2021 Troponin I.cardiac [Mass/Vol] 0.07 ng/mL High 0.00-0.04 [facility] Comment on above: Result Comment: REFE RENCE RANGES: 0.00 - 0.04 ng/ml NORMAL 0.05 - 0.50 ng/ml INDETERMINATE > 0.50 ng/ml CONSISTENT WITH AN M.I. Performed By: #### 3 2044 #### [facility] [address] TSH3 WITH REFLEX FT4on 07-31 TSH 3RD GENERATION 1.98 uIU/mL Normal 0.34-5.60 [facility] Comment on above: Performed By: #### 3 2044 #### [facility] [address] Vital Signs Date Time Vital Sign Value Performing Clinician Facility 04-07-2025 09: Body height 167.64 cm Cullen Costa MD Work Phone: [facility] 04-07-2025 09: Body mass index (BMI) [Ratio] 48.4 kg/m2 Cullen Costa MD Work Phone: [facility] 04-07-2025 09:07-0400 Body weight 136.24 kg Cullen Costa MD Work Phone: [facility] 04-07-2025 09:07-0400 Diastolic blood pressure 78 mm[Hg] Cullen Costa MD Work Phone: [facility] 04-07-2025 09:07-0400 Heart rate 84 /min Cullen Costa MD Work Phone: [facility] 04-07-2025 09:07-0400 Respiratory rate 14 /min Cullen Costa MD Work Phone: [facility] 04-07-2025 09:07-0400 SaO2% (BldA) [Mass fraction] 96 % Cullen Costa MD Work Phone: [facility] 04-07-2025 09:07-0400 Systolic blood pressure 120 mm[Hg] Cullen Costa MD Work Phone: [facility] 02-15-2025 13:43-0400 Body height 167.64 cm [facility] 02-15-2025 13:43-0400 Body mass index (BMI) [Ratio] 49.2 kg/m2 [facility] 02-15-2025 13:43-0400 Body weight 138.34 kg [facility] 02-15-2025 13:43-0400 Diastolic blood pressure 74 mm[Hg] [facility] 02-15-2025 13:43-0400 Heart rate 83 /min [facility] 02-15-2025 13:43-0400 Respiratory rate 16 /min [facility] 02-15-2025 13:43-0400 SaO2% (BldA) [Mass fraction] 96 % [facility] 02-15-2025 13:43-0400 Systolic blood pressure 126 mm[Hg] [facility] 10-12-2024 15:17-0500 Body height 167.64 cm [facility] 10-12-2024 15:17-0500 Body mass index (BMI) [Ratio] 45.6 kg/m2 [facility] 10-12-2024 15:17-0500 Body temperature 98 [degF] [facility] 10-12-2024 15:17-0500 Body weight 128.36 kg [facility] 10-12-2024 15:17-0500 Diastolic blood pressure 74 mm[Hg] [facility] 10-12-2024 15:17-0500 Heart rate 60 /min [facility] 10-12-2024 15:17-0500 Respiratory rate 16 /min [facility] 10-12-2024 15:17-0500 SaO2% (BldA) [Mass fraction] 96 % [facility] 10-12-2024 15:17-0500 Systolic blood pressure 143 mm[Hg] [facility] 06-08-2024 13:54-0400 Body mass index (BMI) [Ratio] 43.5 kg/m2 [facility] 06-08-2024 13:47-0400 Body height 175.26 cm [facility] 06-08-2024 13:47-0400 Body temperature 98 [degF] [facility] 06-08-2024 13:47-0400 Body weight 133.8 kg [facility] 06-08-2024 13:47-0400 Diastolic blood pressure 73 mm[Hg] [facility] 06-08-2024 13:47-0400 Heart rate 93 /min [facility] 06-08-2024 13:47-0400 Respiratory rate 18 /min [facility] 06-08-2024 13:47-0400 SaO2% (BldA) [Mass fraction] 92 % [facility] 06-08-2024 13:47-0400 Systolic blood pressure 120 mm[Hg] [facility] 12-23-2023 13:53-0400 Body height 175.26 cm [facility] 12-23-2023 13:53-0400 Body mass index (BMI) [Ratio] 43.8 kg/m2 [facility] 12-23-2023 13:53-0400 Body temperature 96.9 [degF] [facility] 12-23-2023 13:53-0400 Body weight 134.71 kg [facility] 12-23-2023 13:53-0400 Diastolic blood pressure 60 mm[Hg] [facility] 12-23-2023 13:53-0400 Heart rate 91 /min [facility] 12-23-2023 13:53-0400 Respiratory rate 20 /min [facility] 12-23-2023 13:53-0400 SaO2% (BldA) [Mass fraction] 97 % [facility] 12-23-2023 13:53-0400 Systolic blood pressure 110 mm[Hg] [facility] 05-27-2023 13:00-0400 Body height 175.26 cm Dedra Robersons Other [facility] [employer] Other 05-27-2023 13:00-0400 Body mass index (BMI) [Ratio] 41.93 kg/m2 Dedra Robersons Other [facility] Other 05-27-2023 13:00-0400 Body temperature 96.8 [degF] Dedra Robersnos Other [facility] Other 05-27-2023 13:00-0400 Body weight 128.82 kg Aztram Robersons Other [facility] Other 05-27-2023 13:00-0400 Diastolic blood pressure 64 mm[Hg] Aztram Robersons Other [facility] Other 05-27-2023 13:00-0400 Respiratory rate 20 /min Aztram Robersons Other [facility] Other 05-27-2023 13:00-0400 SaO2% (BldA) [Mass fraction] 96 % Aztram Bakhous Other [facility] Other 05-27-2023 13:00-0400 Systolic blood pressure 111 mm[Hg] Aztram Robersons Other [facility] Other 12-10-2022 15:00-0400 Body height 175.26 cm Aztram Robersons Other [facility] Other 12-10-2022 15:00-0400 Body mass index (BMI) [Ratio] 39.75 kg/m2 Aztram Robersons Other [facility] Other 12-10-2022 15:00-0400 Body temperature 96.7 [degF] Dedra Robersons Other [facility] Other 12-10-2022 15:00-0400 Body weight 122.11 kg Dedra Robersons Other [facility] Other 12-10-2022 15:00-0400 Diastolic blood pressure 70 mm[Hg] Dedra Robersons Other [facility] Other 12-10-2022 15:00-0400 Respiratory rate 20 /min Dedra Robersons Other [facility] Other 12-10-2022 15:00-0400 SaO2% (BldA) [Mass fraction] 95 % Dedra Bakhous Other [facility] Other 12-10-2022 15:00-0400 Systolic blood pressure 110 mm[Hg] Aziz Bakhous Other [facility] Other 09-17-2022 11:00-0500 Body height 175.26 cm Dedra Kohous Other [facility] Other 09-17-2022 11:00-0500 Body mass index (BMI) [Ratio] 39.54 kg/m2 Dedra Robersons Other [facility] Other 09-17-2022 11:00-0500 Body temperature 96.2 [degF] Dedra Robersons Other [facility] Other 09-17-2022 11:00-0500 Body weight 121.47 kg Dedra Robersons Other [facility] Other 09-17-2022 11:00-0500 Diastolic blood pressure 60 mm[Hg] Dedra Robersons Other [facility] Other 09-17-2022 11:00-0500 Respiratory rate 20 /min Dedra Robersons Other [facility] Other 09-17-2022 11:00-0500 SaO2% (BldA) [Mass fraction] 97 % Dedra Robersons Other [facility] Other 09-17-2022 11:00-0500 Systolic blood pressure 102 mm[Hg] Dedra Robersons Other [facility] Other 06-27-2022 17:43-0400 Diastolic blood pressure 56 mm[Hg] MD Cullen Costa Work Phone: [facility] 06-27-2022 17:43-0400 Heart rate 78 /min MD Cullen Costa Work Phone: [facility] 06-27-2022 17:43-0400 Respiratory rate 20 /min MD Cullen Costa Work Phone: [facility] 06-27-2022 17:43-0400 SaO2% (BldA) [Mass fraction] 95 % MD Cullen Costa Work Phone: [facility] 06-27-2022 17:43-0400 Systolic blood pressure 109 mm[Hg] MD Cullen Costa Work Phone: [facility] 06-27-2022 14:32-0400 Body height 167.64 cm MD Cullen Costa Work Phone: [facility] 06-27-2022 14:32-0400 Body temperature 97.8 [degF] MD Cullen Costa Work Phone: [facility] 06-27-2022 14:32-0400 Body weight 117.02 kg MD Cullen Costa Work Phone: [facility] Encounters Encounter Date Encounter Type Care Provider Facility Start: 04-07-2025 End: 04-07-2025 ambulatory Cullen Costa MD Work Phone: [facility] Work Phone: Start: 04-07-2025 End: 04-07-2025 Patient encounter procedure Cullen Costa MD -[facility] Work Phone: Start: 03-30-2025 ambulatory [facility] Start: 02-15-2025 End: 02-15-2025 ambulatory [facility] Work Phone: Start: 02-15-2025 End: 02-15-2025 Patient encounter procedure [facility] Lukas[facility] Work Phone: Start: 02-09-2025 Non-patient / Non-visit [facility] Work Phone: Start: 01-17-2025 ambulatory [facility] Start: 01-03-2025 Non-patient / Non-visit [facility] Work Phone: Start: 01-03-2025 End: 01-03-2025 ambulatory [facility] Start: 12-28-2024 End: 12-28-2024 ambulatory [facility] Start: 10-12-2024 End: 10-12-2024 ambulatory [facility] Work Phone: Start: 10-12-2024 End: 10-12-2024 Patient encounter procedure [facility] Nephrology Lukasz Work Phone: Start: 10-08-2024 Non-patient / Non-visit [facility] Work Phone: Start: 09-15-2024 Non-patient / Non-visit [facility] Work Phone: Start: 08-03-2024 End: 08-03-2024 ambulatory [facility] Start: 06-21-2024 End: 06-21-2024 ambulatory [facility] Start: 06-15-2024 End: 06-15-2024 ambulatory [facility] Start: 06-09-2024 End: 06-09-2024 ambulatory [facility] Start: 06-09-2024 End: 06-09-2024 ambulatory [facility] Start: 06-08-2024 End: 06-08-2024 ambulatory [facility] Work Phone: Start: 06-08-2024 End: 06-08-2024 Patient encounter procedure [facility] Neph[facility] Lukasz Work Phone: Start: 06-02-2024 Non-patient / Non-visit [facility] Work Phone: Start: 05-05-2024 End: 05-05-2024 ambulatory [facility] Start: 04-30-2024 Non-patient / Non-visit [facility] Work Phone: Start: 12-23-2023 End: 12-23-2023 ambulatory [facility] Work Phone: Start: 12-23-2023 End: 12-23-2023 Patient encounter procedure [facility] Work Phone: Start: 12-17-2023 Non-patient / Non-visit [facility] [employer] Work Phone: Start: 06-09-2023 End: 06-09-2023 ambulatory Cullen Costa Other [facility] Other Start: 06-09-2023 Telephone encounter Cullenelias Costa [facility] Start: 05-27-2023 End: 05-27-2023 ambulatory Aziz Bakhous Other [facility] Other Start: 05-27-2023 Office outpatient visit 25 minutes Aziz Bakhous [facility] Start: 05-20-2023 End: 05-20-2023 ambulatory Cullen Igor Other [facility] Other Start: 05-20-2023 Telephone encounter Cullen Costa [facility] Start: 12-10-2022 End: 12-10-2022 ambulatory Aziz Bakhous Other [facility] Other Start: 12-10-2022 Office outpatient visit 25 minutes Aziz Bakhous [facility] Start: 12-03-2022 End: 12-04-2022 ambulatory AZIZ BAKHOUS Facility:[facility] Start: 11-27-2022 End: 11-28-2022 ambulatory AZIZ BAKHOUS Facility:[facility] Start: 09-17-2022 End: 09-17-2022 ambulatory Aziz Bakhous Other [facility] Other Start: 09-17-2022 Office outpatient ne w 30 minutes Aziz Bakhous [facility] Start: 07-25-2022 End: 07-25-[address] MARK INIGUEZ Facility:[facility] Start: 07-10-2022 End: 07-11-[address] TIGIST IGLESIAS Facility:[facility] Start: 06-27-2022 End: 06-27-2022 Emergency department patient visit Cullen Costa Facility:[facility] Start: 06-27-2022 End: 06-27-2022 Emergency department patient visit MD Cullen Costa Work Phone: [facility] Start: 06-24-2022 End: 06-25-2022 ambulatory HOLLAND SIMPSON Facility:H1 Start: 04-29-2022 ambulatory MIS STORM Facdawna lity:H1 Start: 04-26-2022 End: 05-03-2022 ambulatory CULLEN COSTA Facility:[facility] Start: 04-25-2022 End: 05-09-2022 Evaluation and management of inpatient VAZQUEZ ALI Facility:[facility] Start: 04-24-2022 End: 04-25-2022 ambulatory VIOLETA VILLAREAL [...] Evaluation and management of inpatient REFERRED SELF Facility:[facility] Procedures Date Procedure Procedure Detail Performing Clinician Start: 08-03-2024 Follow-up visit Follow-up HOLLAND OCHOA Start: 06-27-2022 Plain chest X-ray MD Fito Costa Work Phone: Start: 12-14-2021 Insertion of Infusio n Device into Upper Vein, Percutaneous Approach DEDRA MENDOZA Start: 04-28-2014 General examination of patient Cullen Costa Other SARS Antigen (LFIA) MD Marly Costa Work Phone: Plan of Treatment Date Care Activity Detail Author Start: 06-27-2022 Duplex scan of lower limb veins US venous duplex LE BI [facility] Start: 06-27-2022 US Lower extremity v ein - bilateral [facility] Bacteria identified in Blood by Culture [facility] Patient Education Cellulitis (Sk in Infection), Adult (DC) [facility] Work Phone: Patient referral [facility] Work Phone: Renal function 2000 panel - Serum or Plasma [facility] Renal function 1999 panel - Serum or Plasma [facility] Renal function 2000 panel - Serum or Plasma [facility] Renal function 1999 panel - Serum or Plasma [facility] Payers Date Payer Category Payer Unknown [id number] 1959 Medicare [id number] 1959 Self-pay 1959 Unknown [id number] 1952 Unknown [id number] 2.16.8 40.1.417672.3.579.2.647 1952 Unknown [id number] 2.16.8 40.1.009645.3.579.2.647 1952 Unknown [id number] 2.16.8 40.1.828938.3.579.2.647 1952 Unknown [id number] 2.16.84 0.1.009863.3.579.2.593 1952 Unknown [id number] 2.16.84 0.1.823673.3.579.2.593 1952 Unknown [id number] 2.16.84 0.1.488514.3.579.2.593 1952 Unknown [id number] 2.16.84 0.1.696354.3.579.2.593 1952 Unknown [id number] 2.16.84 0.1.118190.3.579.2.593 1952 Unknown [id number] 2.16.84 0.1.809386.3.579.2.593 1952 Unknown [id number] 2.16.84 0.1.621942.3.579.2.593 1952 Unknown [id number] 2.16.84 0.1.032582.3.579.2.593 1952 Unknown [id number] 2.16.84 0.1.224479.3.579.2.593 1952 Unknown [id number] 2.16.84 0.1.652444.3.579.2.593 1952 Unknown [id number] 2.16.84 0.1.326699.3.579.2.593 1952 Unknown [id number] 2.16.84 0.1.653188.3.579.2.593 1952 Unknown [id number] 2.16.84 0.1.424147.3.579.2.593 1952 Unknown [id number] 2.16.84 0.1.115309.3.579.2.593 1952 Unknown [id number] 2.16.84 0.1.336919.3.579.2.593 1952 Unknown [id number] 2.16.84 0.1.817968.3.579.2.593 1952 Unknown [id number] 2.16.84 0.1.738612.3.579.2.593 1952 Unknown [id number] 2.16.84 0.1.826672.3.579.2.593 1952 Unknown [id number] 2.16.84 0.1.076369.3.579.2.593 1952 Unknown [id number] 2.16.84 0.1.882878.3.579.2.593 1952 Unknown [id number] 2.16.84 0.1.803542.3.579.2.593 1952 Unknown [id number] 2.16.84 0.1.531184.3.579.2.593 Unknown [id number] 2.16.8 40.1.153148.3.579.2.531 Unknown [facility] [id number] Social History Date Type Detail Facility Start: 06-27-2022 End: 12-23-2023 Tobacco smoking status NHIS Never smoked tobacco (finding) [facility] Start: 1950 Sex Assigned At Male F [facility] Sex Assigned At Sex Assigned At Bir th [facility] Other Start: 10-12-2024 End: 02-15-2025 Sex Male (finding) [facility] Clinical Notes 08-02-2021 to 02-15-2025 Note Date & Type Note Facility 02-15-2025 Evaluation note Diagnosis Onset Date Resolution Anemia of renal disease acute J 2024 1:38pm Hyperparathyroidism acute February 15, 2025 1:38pm Hypertensive nephropathy acute February 15, 2025 1:38pm Hyperuricemia acute February 15, 2025 1:38pm Kidney disease, chronic, stage IV (GFR 15-29 ml/min) acute February 15, 2025 1:38pm Presence of permanent cardiac pacemaker acute February 15 1:38pm Renal cyst, acquired acute February 15, 2025 1:38pm Severe obesity (BMI >= 40) acute February 15, 2025 1:38pm Systolic congestive heart failure acute February 15, 2025 1:38pm Vitamin D deficiency acute February 15, 2025 1:38pm [facility] Work Phone: [phone] 412-462204-28-2025 NoteUT Cardiology - [facility] Subjective Man Patel is a 74 y.o. year old male patient being seen for 6 month follow up. Patiet states he is feeling good. Patient denies chest pain, swelling in his legs, palpitations, heart racing, skin discoloration/bleeding/bruising or SOB. Family History Problem Relation Name Age of Onset Coronary artery disease Mother Hyperlipidemia Mother Hypertension Mother Stroke Mother Diabetes Mother Coronary artery disease Father Hyperlipidemia Father Hypertension Father Social History Tobacco Use Smoking status: Never Smokeless tobacco: Never Substance Use Topics Alcohol use: Never Drug use: Never HPI Man is seen in [...] have the cardioversion done. This was aborted. I saw him again on 06/21/2024 and referred him to Dr. Holland Simpson for upgrade of his device to CLIENT PROJECT COORDINATOR-D given persistently low ejection fraction. He was scheduled for the procedure but did not want to proceed with that. Today he reports that he has no angina. He has mild shortness of breath on exertion NYHA class II-III but none at rest. He has mild lower extremity swelling. He is not very ambulatory at all. Review of Systems Musculoskeletal: Positive for muscle weakness. Neurological: Positive for weakness. All other systems reviewed and are negative. Objective Visit Vitals BP 125/74 (BP Location: Right arm, Patient Position: Sitting) Pulse 59 Ht 1.676 m (5' 6 ) Wt (!) 142 kg (312 lb) SpO2 96% BMI 50.36 kg/m??? Smoking Status Never BSA 2.57 m??? Physical Exam Constitutional: Appearance: He is [...] two times daily., Disp: 14 tablet, Rfl: 0 aspirin 81 mg EC tablet, Take 81 mg by mouth in the morning., Disp: , Rfl: atorvastatin (Lipitor) 80 mg tablet, TAKE 1 TABLET BY MOUTH EVERY DAY, Disp: 90 tablet, Rfl: 3 bumetanide (Bumex) 1 mg tablet, TAKE 3 TABLETS BY MOUTH TWICE A DAY (Patient taking differently: Take 3 mg by mouth two times daily.), Disp: 540 tablet, Rfl: 3 hydrALAZINE (Apresoline) 25 mg tablet, TAKE 1 TABLET BY MOUTH IN THE MORNING AND IN THE EVENING, Disp: 180 tablet, Rfl: 3 isosorbide dinitrate (Isordil) 10 mg tablet, Take 1 tablet (10 mg) by mouth three times daily., Disp: 270 tablet, Rfl (more content not included)... [facility]11-26-2024 NoteUT Electrophysiology Consult Note [place] Cardiology [facility] Reason for visit: CMP HPI: Man Patel is a 74 y.o. year old with past medical history of CAD s/p CABG, cardiac cath in 2016 with no targets for revacularization, htn, morbid [...] on file Intimate Partner Violence: Unknown (10/30/2023) [place] Safety & Environment Fear of Current or [...] normal jugular venous pressure (more content not included)...[facility]10-14-2024 Note [place] [facility] - [facility] Subjective Man Patel is a [...] in the past x3, cardiac catheterization in 2015 showed no targets for revascularization. He also has history of hypertension, morbid obesity, chronic systolic heart failure (EF 35-40%- 08/2020, EF 40% April 2022). He has history of atrial flutter status post cardioversion in 2015. [...] Rate 06/15/2024 84 Atrial Rate 06/15/2024 84 MD Interval 06/15/2024 228 QRS DURATION 06/15/2024 178 QT Interval 06/15/2024 440 QTC CALCULATION(BAZETT) 06/15/2024 519 P [place] 06/15/2024 96 R-[place] 06/15/2024 -20 T Wave [place] 06/15/2024 130 NT proBNP 06/18/2024: 1911. Blood testing 06/02/2024: Hemoglobin 15.3, platelets 182, BUN 57, creatini (more content not included)...[facility]10-02-2024 NoteUT Cardiology - [facility] Subjective Man Patel is a [...] 2024 showed no ischemia. Review of his [employer] pacer report shows V pacing 97% with [...] THE MORNING AND AT (more content not included)...[facility] 05-05-2024 NoteCardiovascular Medicine [place] [facility] SUBJECTIVE Chief Complaint Patient presents with [...] disease, chronic, stage IV (GFR 15-29 ml/min) ([facility]) Presence of permanent cardiac pacemaker Renal cyst, acquired Vitamin D deficiency Past Medical History: Diagnosis Date Atrial fibrillation ([facility]) CHF (congestive heart failure) ([facility]) Chronic kidney disease Coronary artery disease Hyperlipidemia [...] is soft. Musculoskeletal: G (more content not included)...[facility]08-28-2024 NotePt is here for a follow up with echo and labs. Pt denies palpatations, chest pain, dizzines. Review of Systems Cardiovascular: Positive for leg swelling. Hematologic/Lymphatic: Bruises/bleeds easily. All other systems reviewed and are negative.[facility] 05-27-2023 Evaluation note* Encounter Date Diagnosis Assessment Notes Treatment Notes Treatment Clinical Notes May, Chronic kidney disease, stage IV [...] I50.20) Patient follows with cardiology clinic in [facility] every 3 months. Has had seems compensating. Patient on spironolactone and Bumex. Patient follows low-salt diet ad weighs himself every day. May, Presence of permanen t cardiac pacemaker (ICD-10 - Z95.0) Patient has history of complete heart block status post permanent pacemaker with defibrillator placement in 2020. And Eliquis and amiodarone in addition to metoprolol. Follows with cardiology clinic May, Vitamin D deficiency (ICD-10 - E55.9) 25-hydroxy vitamin D is still low.Will start cholecal 2000 U daily May, Hyperparathyroidism (ICD-10 - E21.3) PTH was slightly high last visit. Likely from vitamin D deficiency. I will replace vitamin D first and recheck PTH level next visit May, Hyperuricemia (ICD-1 0 - E79.0) Uric acid is 10.0. will start allopurinl. May, Renal cyst, acquired (ICD-10 - N28.1) Renal ultrasound shows left side nonobstructive nephrolithiasis along with bilateral renal cortical simple cysts. Largest measures in the left 2.4 cm in the right 4.2 cm [facility] Other 04-04-2023 Evaluation note* Encounter Date Diagnosis [...] I50.20) Patient follows with cardiology clinic in [facility] every 3 months. Has had seems [...] D is low. As the patient take [id number] vitamin D supplement 2000 unit daily Dec, [...] 2.4 cm in the right 4.2 cm [facility] Other 01-10-2023 Evaluation note* Encounter Date Diagnosis [...] I50.20) Patient follows with cardiology clinic in [facility] every 3 months. Has had seems compensating. Patient on spironolactone and Bumex. Patient follows low-salt diet hours himself every day. Sep, Presence of permanent cardiac pacemaker (ICD-10 - Z95.0) Patient has history of complete heart block status post permanent pacemaker with defibrillator placement in 2020. And Eliquis and amiodarone in addition to metoprolol. Follows with cardiology clinic [facility] Other 08-30-2022 NoteMR#: [id number] [facility] Pt. Name: Man Patel Admitted: 04/25/2022 [...] x2 on 04/29 and 05/03, insertion of Success-Eleazar catheter and removal, and echocardiogram. CONSULTATIONS: Included Cardiology, Nephrology, vascular service and medical ICU. HOSPITAL COURSE: This patient is a 72-year-old male, who presents to the [facility] as a transfer from [facility] with complaints of worsening shortness of breath and weeping edema. The patient was accepted for transfer by the [facility] for failed outpatient treatment of [...] at this time for discharging to a care home facility with close followup with Cardiology and [...] The patient is being discharged to a care home facility. Please note that an addendum may be added to this discharge dictation as the patient's discharge is currently pending placement at this time. MEDICATIONS: As per medication reconciliation and as per above. DISCHARGE INSTRUCTIONS: Activity as tolerated with PT and OT at facility. Heart healthy, low-cholesterol diet with (more content not included)...[facility]11-25-2021 NoteMR#: [id number] [facility] Pt. Name: Man Patel Admitted: 07/31/2021 [...] ejection fraction, who initially presented to [facility] for bradycardia. He was having syncopal episodes, where he was found to have heart rate in the 30s. Atropine was given at [place] without any help. His blood pressure was stable at that time and was transferred to [facility]. On arrival, his EKG revealed complete heart [...] and followup as an outpatient close to [place] where the patient is from and interested [...] physician, Dr. Costa, in [address] [facility]. 2. Follow up with [facility] Heart on 08/10/2021 for wound/pacemaker check at 11:20 a.m. 3. Follow up with [facility] Cardiovascular on 09/04/2021 at 2:[address] at [place] [address]. Cintron. 4. Follow up with Nephrology around [place]. TIME SPENT: Time spent for the discharge [...] Johnson CNP Date Trans: 08/02/2021 05:18 P/surekha [id number] [facility] assessment information [facility] Work Phone: Evaluation noteNo InformationNort Acer Other Evaluation note* Diagnosis Onset Date Resolution Status Hyperparathyroidism acute Hypertensive nephropathy acu te Hyperuricemia acute Kidney disease, chronic, stage IV (GFR 15-29 ml/min) acute Presence of permanent cardiac pacemaker acute Renal cyst, acquired acute Systolic congestive heart failure acute Vitamin D deficiency acute [facility] Work Phone: Evaluation note* Diagnosis Onset Date Resolution Status Admit Date Anemia of renal disease acute F ebruary 2024 3:11pm Hyperparathyroidism acute Febru fred 2024 3:11pm Hypertensive nephropathy acute October 12, 2024 3:11pm Hyperuricemia acute October 3:11pm Kidney disease, chronic, sta ge IV (GFR 15-29 ml/min) acute October 12, 2024 3:11pm Presence of permanent cardia c pacemaker acute October 12 3:11pm Renal cyst, acquired acute Febr uary 2024 3:11pm Severe obesity (BMI >= 40) acute October 12, 2024 3:11pm Systolic congestive heart failure ac pauma October 12, 2024 3:11pm Vitamin D deficiency acute Febr uary 2024 3:11pm [facility] Work Phone: Evaluation note* Diagnosis Onset Date Resolution Status Admit Date Anemia of renal disease acute J 2024 1:38pm Hyperparathyroidism acute February 15, 2025 1:38pm Hypertensive nephropathy acute February 15, 2025 1:38pm Hyperuricemia acute February 15, 2025 1:38pm Kidney disease, chronic, sta ge IV (GFR 15-29 ml/min) acute February 15 1:38pm Presence of permanent cardia c pacemaker acute February 15, 2025 1:38pm Renal cyst, acquired acute February 15, 2025 1:38pm Severe obesity (BMI >= 40) acute February 15, 2025 1:38pm Systolic congestive heart failure ac pauma February 15, 2025 1:38pm Vitamin D deficiency acute February 15, 2025 1:38pm [facility] Work Phone: History general Narrative - Reported* Type Description Date Medical History varicose veins Medical History Hypertension Medical History obesity Medical History thrombophlebitis Medical History possible DVT Medical History CAD Medical History ACUTE HYPOXIC RESPIRATORY FAILUR E Surgical History triple bypass 03/2000 Hospitalization History bypass Hospitalization History EDEMIA 06/29 Hospitalization History EDEMIA 04/2022 [facility] Other Hisopgu general Narrative - Reported* Type Description Date Medical History varicose veins Medical History Hypertension Medical History obesity Medical History thrombophlebitis Medical History possible DVT Medical History CAD Medical History ACUTE HYPOXIC RESPIRATORY FAILUR E Surgical History triple bypass 03/2000 Hospitalization History bypass Hospitalization History EDEMA 06/29 Hospitalization History EDEMA 04/2022 [facility] Other Hospital Discharge instructions Additional Instructions Take antibiotics as instructed until gone Elevate lower extremities You have blood cultures pending Follow-up with home care your primary care doctor call tomorrow for appointment Return here if any problems persist or worsen including fever, chills, increased redness, increased swelling or [facility] Work Phone: Reason for referral (narrative)No reason for referral information availableOhiohealth [facility] Work Phone: Summary Purpose Family History Relationship Condition Age at Onset Recorded Date/T [...] Unknown sister Heart disease Unknown Advance Directives Advance Directive Response Recorded Date/ Time Advance Directives No June 27, 2022 4:21pm Advance Directive Response Recorded Date/ Time Advance Directives No June 27, 2022 3:21pm Chief Complaint and Reason for Visit Chief Complaint Admit Date RENAL 4 MONTHS February 15, 2025 1:38 pm wellness April 07, 2025 9:33 am Reason for Visit Admit Date Anemia of renal disease February 15, 2025 1:38pm Hyperparathyroidism February 15, 2025 1:38 pm Hypertensive nephropathy February 15, 2025 1:38pm Hyperuricemia February 15, 2025 1:38 pm Kidney disease, chronic, stage IV (GFR 1 5-29 ml/min) February 15, 2025 1:38pm Presence of permanent cardiac pacemaker February 15, 2025 1:38pm Renal cyst, acquired February 15, 2025 1:3 8pm Severe obesity (BMI >= 40) February 15 1:38pm Systolic congestive heart failure February 062024 1:38pm Vitamin D deficiency February 15, 2025 1:3 8pm Chief Complaint bilateral leg swelli ng Chief [...] heart failure Vitamin D deficiency Chief Complaint Admit Date CC Adult Risk Stratification September 10:55am RENAL 4 MONTH F/U October 12, 2024 3 :11pm Reason for Visit Admit Date Anemia of renal disease October 12 3:11pm Hyperparathyroidism October 12, 2024 3 :11pm Hypertensive nephropathy October 12, 2 025 3:11pm Hyperuricemia October 12, 2024 3 :11pm Kidney disease, chronic, stage IV (GFR 1 5-29 ml/min) October 12, 2024 3:11pm Presence of permanent cardiac pacemaker October 12, 2024 3:11pm Renal cyst, acquired October 12, 2024 3:11pm Severe obesity (BMI >= 40) October 12, 2024 3:11pm Systolic congestive heart failure Februa 2024 3:11pm Vitamin D deficiency October 12, 2024 3:11pm Chief Complaint Admit Date RENAL 4 MONTHS February 15, 2025 1:38 pm Reason for Visit Admit Date Anemia of renal disease February 15, 2025 1:38pm Hyperparathyroidism February 15, 2025 1:38 pm Hypertensive nephropathy February 15, 2025 1:38pm Hyperuricemia February 15, 2025 1:38 pm Kidney disease, chronic, stage IV (GFR 1 5-29 ml/min) February 15, 2025 1:38pm Presence of permanent cardiac pacemaker February 15, 2025 1:38pm Renal cyst, acquired February 15, 2025 1:3 8pm Severe obesity (BMI >= 40) February 15 1:38pm Systolic congestive heart failure February 062024 1:38pm Vitamin D deficiency February 15, 2025 1:3 8pm Chief Complaint Admit Date RENAL 4 MONTHS February 15, 2025 1:38 pm wellness April 07, 2025 9:33 am Additional Source Comments (unrecognized sect ion and content) No Status Records FoundNo Status Records FoundNo Status Records FoundNo Status Records Found INFORMATION SOURCE (unrecogn ized section and content) DATE CREATED AUTHOR 05/15/2022 [facility] DATE CREATED AUTHOR AUTHOR'S ORGANIZ ATION 07/05/2022 [facility] DATE CREATED AUTHOR AUTHOR'S ORGANIZ ATION 12/11/2022 [facility] DATE CREATED AUTHOR AUTHOR'S ORGANIZ ATION 04/03/2025 [facility] Care Teams (unrecognized sec tion and content) [...] June 08, 2024 End: June 08, 2024 Team Status: Active Member Role Status Dates Cullen Costa MD Primary Care Provide r, Attending Provider Active Start: September 15, 2024 Team Status: Active Member Role Status Dates Cullen Costa MD Primary Care Provider Active Start: October 08, 2024 Dedra Mendoza MD Attending Provider Active Star t: October 08, 2024 Team Status: Inactive Member Role Status Dates Cullen Costa MD Primary Care Provider Active Start: October 12, 2024 End: October 12, 2024 Dedra Mendoza MD Attending Provider Active Star t: October 12, 2024 End: October 12, 2024 Team Status: Active Member Role Status Dates Cullen Costa MD Primary Care Provider Active Start: January 03, 2025 Li Cintron MD Attending Provider Active Start: January 03, 2025 Team Status: Active Member Role Status Dates Cullen Costa MD Primary Care Provider Active Start: February 09, 2025 Dedra Mendoza MD Attending Provider Active Star t: February 09, 2025 Team Status: Inactive Member Role Status Dates Cullen Costa MD Primary Care Provider Active Start: February 15, 2025 End: February 15, 2025 Dedra Mendoza MD Attending Provider Active Star t: February 15, 2025 End: February 15, 2025 Team Status: Inactive Member Role Status Dates Cullen Costa MD Primary Care Provider Active Start: April 07, 2025 End: April 07, 2025 Cullen Costa MD Attending Provider Active St art: April 07, 2025 End: April 07, 2025 Goals (unrecognized section and content) Goals may be documented in a n alternate sectionNo InformationNo InformationNo InformationNo InformationNo InformationGoals may be documented in an alternate sectionGoals may be documented in an alternate sectionGoals may be documented in an alternate sectionGoals may be documented in an alternate sectionGoals [...] BE BASED ON THE PRIMARY CLINICAL RECORDS. [employer] provides no warranty or guarantee of the accuracy or completeness of information in this document.
[2025-06-16 11:26] LABS: Protein Creatinine Ratio Urine 0.15; Total Protein Urine Random 19.0 mg/dL (<=11.9)
[2025-06-16 11:30] LABS: Hematocrit 45.9 % (42.0-54.0); Hemoglobin 14.8 g/dL (14.0-18.0); Mean Corpuscular HGB Conc 32.2 g/dL (29.9-35.2); Mean Corpuscular Hemoglobin 29.9 pg (25.9-34.0); Mean Corpuscular Volume 92.7 fL (80.0-94.0); Platelet Count 188 10^3/uL (150-450); Red Blood Count 4.95 10^6/uL (4.70-6.10); White Blood Count 8.1 10^3/uL (4.0-11.0)
[2025-06-16 11:32] LABS: Albumin Level 3.9 g/dL (3.4-5.0); Anion Gap 14.8; Blood Urea Nitrogen 50.0 mg/dL (7.0-18.0); Calcium 8.9 mg/dL (8.5-10.1); Carbon Dioxide 29.3 mmol/L (21.0-32.0); Chloride 100 mmol/L (98-107); Estimated GFR (African America 35 (>=60 mL/min/1.73m^2); Estimated GFR (Non-African Ame 29 (>=60 mL/min/1.73m^2); Glucose 128 mg/dL (74-106); Magnesium 2.6 mg/dL (1.8-2.4); Potassium 4.1 mmol/L (3.5-5.1); Sodium 140 mmol/L (136-145); Uric Acid 8.2 mg/dL (3.5-7.2)
== END 2025-06-16 10:29 | disposition home or self-care (01) ==
LOC: LAB 10:32
PROVIDERS: PCP Family Medicine; Visit Provider Internal Medicine Nephrology
DX: N18.9 Chronic kidney disease, unspecified (principal); D63.1 Anemia in chronic kidney disease; E66.01 Morbid (severe) obesity due to excess calories; N28.1 Cyst of kidney, acquired; E79.0 Hyperuricemia without signs of inflammatory arthritis and tophaceous disease; E21.3 Hyperparathyroidism, unspecified
CPT/HCPCS: 36415; 80069; 82306; 82570; 83735; 83970; 84156; 84550; 85027

== ENCOUNTER 2025-09-06 09:59 | Outpatient (OUT) | payer MEDICARE, OTHER, SELFPAY ==
--- OUTSIDE RECORDS SUMMARY | 2025-09-06 10:04 | XMS_ITS | Clinical Summary ---
Author Organization [facility] Healthcare Address [address] [place] [address] Care Team Providers Care Master Hearth Technician Name Role Phone Unavailable Primary Care Provider Unavailabl e Social History Tobacco UseTypesPacks/DayYears UsedDateSmoking Tobacco: Never AssessedSex and Gender InformationValueDate RecordedSex Assigned at BirthNot on fileLegal Sex Male11/20/2022 7:34 PM EDTGender IdentityNot on fileSexual OrientationNot on file Plan of Treatment Not on file Insurance
--- OUTSIDE RECORDS SUMMARY | 2025-09-06 10:04 | XMS_ITS | Encounter Summary ---
Author Organization [facility] Address [address] [place] [address] Care Team Providers Care Caretaker Grounds Name Role Phone Jessy Rodríguez MD Primary Care Provider [phone] Reason for Visit * ReasonCommentsMed Refill Encounter Details DateTypeDepartmentCare Team (Latest Contact Info)Mzfqsgfoyer89/28/2025[facility] [address] [place] [address] Gatito Cintron MD [address] [facility] [place] [address] Paroxysmal atrial fibrillation (CMS/HCC) Social History Tobacco UseTypesPacks/DayYears UsedDateSmoking Tobacco: NeverSmokeless Tobacco: NeverAlcohol UseStandard Drinks/WeekCommentsNever0 (1 standard drink = 0.6 oz pure alcohol)[place] Safety & EnvironmentAnswerDate RecordedFear of Current or Ex-PartnerNot on 10/30/2023Emotionally AbusedNot on file10/30/2023hysically AbusedNot on 10/30/2023Sexually AbusedNot on file10/30/2023hysically or Sexually AbusedNot on 10/30/2023Sex and Gender InformationValueDate Recorded Sex Assigned at DiixhKpdb46/01/2025 10:14 AM EDTLegal KfgYwgo1703/06/2022 9:59 PM EDTGender MubwokrcLqwt89/01/2025 10:14 AM EDTSexual OrientationHeterosexual or Iidyrnua88/01/2025 10:14 AM EDTdocumented as of this encounter Plan of Treatment Not on file documented as of this encounter Visit Diagnoses Diagnosis Paroxysmal atrial fibrillation (CMS/HCC) Atrial fibrillation documented in this encounter Care Teams Team MemberRelationshipSpecialtyStart DateEnd Date Jessy Rodríguez MD [address] [facility] #A PCP - 04/24/22documented as of this encounter
--- OUTSIDE RECORDS SUMMARY | 2025-09-06 10:04 | XMS_ITS | Clinical Summary ---
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 Do not crush or chew.Active Klor-Con M20 20 mEq ER tablet Take 20 mEq by mouth in the morning.3Active allopurinol (Zyloprim) 100 mg tablet Take 100 mg by mouth in the morning.Active Vitamin D3 50 mcg (2,000 unit) tablet TAKE 1 TABLET BY MOUTH EVERY DAY FOR 90 DAYSActive atorvastatin (Lipitor) 80 mg tablet Indications:Mixed hyperlipidemiaTAKE 1 TABLET BY MOUTH EVERY DAY 90 tablet 5Active hydrALAZINE (Apresoline) 25 mg tablet Indications:Essential hypertensionTAKE 1 TABLET BY MOUTH IN THE MORNING AND IN THE EVENING 180 tablet 5Active isosorbide dinitrate (Isordil) 10 mg tablet Indications:Coronary artery disease, unspecified vessel or lesion type, unspecified whether angina present, unspecified whether levelock or transplanted heartTake 1 tablet (10 mg) by mouth three times daily. 270 tablet 3035Active spironolactone (Aldactone) 25 mg tablet Indications:Edema, unspecifiedTAKE 1 TABLET BY MOUTH EVERY DAY 90 tablet 3055Active bumetanide (Bumex) 1 mg tablet Indications:Edema, unspecified typeTAKE 3 TABLETS BY MOUTH TWICE A DAY 540 tablet 308/18/2025Active Eliquis 5 mg tablet Indications:Paroxysmal atrial fibrillation (CMS/HCC)TAKE 1 TABLET BY MOUTH TWO TIMES DAILY. 42 tablet 5Active apixaban (Eliquis) 5 mg tablet Indications:Paroxysmal atrial fibrillation (CMS/HCC)Take 1 tablet (5 mg) by mouth two times daily. 14 tablet 308/512/01/2025Discontinued(Reorder) apixaban (Eliquis) 5 mg tablet Indications:Paroxysmal atrial fibrillation (CMS/HCC)Take 1 tablet (5 mg) by mouth two times daily. 14 tablet 312/512/Discontinued Active Problems ProblemNoted DateDiagnosed DateAtypical atrial claqevw2806/09/2024ellulitis 05/03/20240696Xgnzqammfhwnpujoeov83/26/2024Hypertensive vhnuqczspjy70/26/2024 Imfixaysvxceu98/26/2024Kidney disease, chronic, stage IV (GFR 15-29 ml/min) 05/03/2024resence of permanent cardiac dxyaitsbx25/26/2024Renal cyst, acquired 05/03/2024Vitamin D wtbzcpgocf48/26/2024Chronic combined systolic and diastolic heart huyepvg5503/05/2022 Assessment & Plan (05/07/2023 2:47 PM EDT): [facility] III- Currently patient remains fairly euvolemic without exacerbation Continue GDMT- Aspirin, Lipitor, Isordil and hydralazine, Toprol and spironolactone Diuretic therapy- Remains on Bumex 3 mg twice daily Monitor daily weights, I&O, fluid restriction 1.5-2L/day, renal function and electrolytes- Follow-up with nephrology as scheduled Assessment & Plan (08/28/2022 11:18 AM EST): -had recent hospital amdission and follow ups for acute exacerbation -he is down 7lbs since last visit and appears euvolemic with improved symptoms -he will follow up in 3 months per his preference despite my recommendation of coming in sooner butwill call clinic with any significant weight or symptoms similar to his recent event. He will also inform us of any changes his try on baster may make or recommend in his appointment in September -continue gdmt: bumex 3mg BID, toprol xl, aldactone 25mg daily, limited medicatin therapy due to kidney dysfunction Paroxysmal atrial ntnwcydomkqj46/28/2022 Assessment & Plan (05/07/2023 2:44 PM EDT): [id number] VASc= 4 (age, htn, chf, CAD) Continue anticoagulation with eliquis Monitor for s/s of bleeding Continue toprol- rate controlled Assessment & Plan (08/28/2022 11:19 AM EST): -glb7pn3-kzex: 4 (age, htn, chf, CAD) -Continue amiodarone and eliquis PFT from 08/14/2020- normal spirometry and diffusion capacity labs from 04/02/2021- thyroid function normal and liver function normal: Benign hypertensive cardiomyopathy with heart dkevhqv9806/27/2016 Assessment & Plan (05/07/2023 2:45 PM EDT): Currently blood pressure well controlled 110/62 continue all medications Assessment & Plan (08/28/2022 11:16 AM EST): Hypertension is stable today -continue hydralazine Arteriosclerosis of arterial coronary artery bypass graft06/27/2016 Assessment & Plan (05/07/2023 2:46 PM EDT): Coronary artery disease is stable Continue GDMT- Aspirin, Lipitor, Toprol, Isordil and hydralazine continue risk factor modifications- heart healthy diet, regular exercise as tolerated and continue all medications. Assessment & Plan (08/28/2022 11:13 AM EST): Coronary artery disease is stable and has had no recent concerning symptoms -continue lipitor 80mg and isosorbide 10mg Morbid yzjlteh9606/27/2016Bundle branch blockEdema of lower cnuftxavj89eneralized ischemic myocardial dysfunction Assessment & Plan (05/07/2023 2:44 PM EDT): Currently stable without concerning symptoms Pain in lower limb Encounters DateTypeDepartmentCare JrssOpxgcpptwin29/28/20[address] [address] Gatito Cintron MD Paroxysmal atrial fibrillation (CMS/HCC)08/12/20[address] [address] Ghada Gutierrez MA Paroxysmal atrial fibrillation (CMS/HCC)06/27/2025 3:00 PM EDTAncillary Procedure [facility] [address] [facility], Floor [address] [place] [phone] Adjustment and management of cardiac xqxcemgzi69/17/2025 1:30 PM EDTOffice Visit [address] [address] Gatito Cintron MD Chronic systolic congestive heart failure (CMS/HCC) (Primary Dx); Atypical atrial flutter (CMS/HCC); Paroxysmal atrial fibrillation (CMS/HCC); Coronary artery disease involving levelock coronary artery of levelock heart without angina pectoris; Cardiac pacemaker in situ; History of coronary artery bypass surgery; CKD (chronic kidney disease), stage IV (CMS/HCC)06/23/2025Orders Only [facility] [address] [facility], Floor [address] [place] [phone] Azra Dobbins MD 06/14/2025 1:15 PM EDTAncillary Procedure [address] [address] Encounter for implantable defibrillator reprogramming or checkfrom Last 3 Months Family History Medical HistoryRelationNameCommentsCoronary artery diseaseFatherHyperlipidemia FatherHypertensionFatherCoronary artery diseaseMotherDiabetesMother HyperlipidemiaMotherHypertensionMotherStrokeMotherRelationNameStatusComments BrotherAliveFatherDeceasedMotherDeceasedSisterAlive Social History Tobacco UseTypesPacks/DayYears UsedDateSmoking Tobacco: NeverSmokeless Tobacco: Never Tobacco Cessation:Counseling Given: Not Answered Alcohol UseStandard Drinks/WeekCommentsNever0 (1 standard drink = 0.6 oz pure alcohol)[place] Safety & EnvironmentAnswerDate RecordedFear of Current or Ex-Partner Not on file10/30/2023Emotionally AbusedNot on file10/30/2023hysically AbusedNot on 10/30/2023Sexually AbusedNot on 10/30/2023hysically or Sexually AbusedNot on 10/30/2023Sex and Gender InformationValueDate RecordedSex Assigned at EhcbnHlcy75/01/2025 10:14 AM EDTLegal VwuVgce4503/06/2022 9:59 PM EDT Gender QxvgrpmoErrq97/01/2025 10:14 AM EDTSexual OrientationHeterosexual or Mszcrdty65/01/2025 10:14 AM EDT Last Filed Vital Signs Vital SignReadingTime TakenCommentsBlood Zmmevwbw102/6606/24/2025 1:52 PM EDT Hqeyz875206/24/2025 1:52 PM EDTTemperature--Respiratory Evbp847710/03/2023 3:18 PM ESTOxygen Umgqiplguw82%06/24/2025 1:52 PM EDTInhaled Oxygen Concentration-- Nczdiw112 kg (302 lb 0.5 oz)06/24/2025 1:52 PM RAHQvhlpm150.6 cm (5' 6 ) 06/24/2025 1:52 PM EDTBody Mass Index48.7506/24/2025 1:52 PM EDT Plan of Treatment Health MaintenanceDue DateLast DoneCommentsCT Ddtefsrvakmf1952Colonoscopy 2Colorectal Cancer Wjdsuimtj1952FIT-DNA1952FIT1950 FOBT1952Medicare Annual Wellness (AWV)1950 5861Gryunmhfusufy1952 Depression Pqjsafsob87/18/1964Pneumococcal Vaccine: 50+ Years (1 of 2 - PCV) 01/23/1971Adult Dghlyyb9501/23/1974Zoster Vaccines (1 of 2)01/23/2002Fall Risk Etnxlvafj08/18/2017COVID-19 Vaccine (2024- season)2025Influenza Vaccine (#1)2025HIB VaccinesAged OutNo longer eligible based on patient's age to complete this topicHPV VaccinesAged OutNo longer eligible based on patient's age to complete this topicIPV VaccinesAged OutNo longer eligible based on patient's age to complete this topicMeningococcal B VaccineAged OutNo longer eligible based on patient's age to complete this topicMeningococcal VaccineAged OutNo longer eligible based on patient's age to complete this topicRotavirus VaccinesAged OutNo longer eligible based on patient's age to complete this topic Procedures Procedure NamePriorityDate/TimeAssociated DiagnosisCommentsCARDIAC DEVICE CHECK CHECK - AJUAEIMfyipkm00/20/2025 4:34 PM EDT Adjustment and management of cardiac pacemaker CARDIAC DEVICE CHECK - REMOTE - HZKYQEXPPBjohtfo16/16/2025 12:00 AM EDTCARDIAC DEVICE CHECK - IN CLINIC - PACEMAKER DUAL CHAMBER W/ ZYFYOfcswac17/08/2025 3:47 PM EDT Encounter for implantable defibrillator reprogramming or check from Last 3 Months Results * CARDIAC DEVICE CHECK - REMOTE - LOOP RECORDER (ILR) (06/27/2025 4:34 PM EDT) Specimen (Source)Anatomical Location / LateralityCollection Method / Volume Collection TimeReceived Time Narrative Authorizing ProviderResult TypeResult StatusBlair Franks [facility] [place] IMPLANTABLE CARDIAC DEVICE PROCEDURESFinal ResultPerforming OrganizationAddressCity/State/ZIP Code Phone Number CPACS * Cardiac device check - Remote pacemaker (06/23/2025 12:00 AM EDT)Anatomical RegionLateralityModalityOtherSpecimen (Source)Anatomical Location / Laterality Collection Method / VolumeCollection TimeReceived Time06/23/2025 Narrative Authorizing ProviderResult TypeResult StatusAzra Dobbins [facility] [place] IMPLANTABLE CARDIAC DEVICE PROCEDURESFinal Result * CARDIAC DEVICE CHECK - IN CLINIC - PACEMAKER DUAL CHAMBER W/ PROG (06/15/2025 3:47 PM EDT)Anatomical RegionLateralityModalityOtherSpecimen (Source) Anatomical Location / LateralityCollection Method / VolumeCollection Time Received Time Narrative 06/20/2025 9:42 AM EDT Normal device function Authorizing ProviderResult TypeResult StatusPabety Oswald MDCV IMPLANTABLE CARDIAC DEVICE PROCEDURESFinal Result from Last [address] [place] [id number] Care Teams Team MemberRelationshipSpecialtyStart DateEnd Date Jessy Rodríguez MD [address] [facility] [address]A [facility]04/24/22
--- OUTSIDE RECORDS SUMMARY | 2025-09-06 10:13 | XMS_ITS | CCD ---
Author Organization [facility] Care Team Providers Care Med Care Manager Name Role Phone TAYLOR HOWARD Admitting Unavailable CULLEN COSTA Primary Care Unavailable [...] IGOR, DR CULLEN Felton Primary Care Unavailable ATLANTA, DR ZE Moraes Consulting Unavailable DEDRA MENDOZA [...] able DR CULLEN COSTA Primary Care Unavailable HOY ., DR JACOBO Consulting Unavailable WEST, DR ZE Moraes Consulting Unavailable ZIEBER, DR CARSON Ace Consulting Unavailable NADERER, DR TIGIST Pendleton Consulting Unavailable HAY ., DR CHI Consulting Unavailable RAFAELSUNSHINE Consulting Unavailable REINECK, DR DELBERT Brown Attending Unavailabl e REINECK, DR DELBERT Brown Admitting Unavailabl e REINECK, DR DELBERT Brown Consulting Unavailabl e COTSA, DR CULLEN Felton Primary Care Unavailable BUTCH .EDWARD Consulting Unavailable ZE GOMEZ Consulting Unavailable HIGHLANDER, [...] CULLEN Felton Primary Care Unavailable VIOLETA VILLAREAL Consulting Unavailable MOUKARBEL, DR JEFFERSON Attending Unavailable [...] PAY ., DR ECHEVARRIA Attending Unavailable BUTCH .EDWARD Consulting Unavailable NEFLA, MIS Lainez Unavailable NADERER, DR TIGIST Pendleton Attending Unavailable NADERER, DR TIGIST Pendleton Admitting Unavailable COSTA, DR CULLEN Felton Primary Care Unavailable NADERER, DR TIGIST Pendleton Consulting Unavailable HAY ., DR CHI Consulting Unavailable JOHANA, MIS Consulting Unavailable DAMIAN, TIFFANIE Consulting Unavailable SATURNINO, DR ZE Moraes Attending Unavailable SATURNINO, DR ZE Moraes Admitting Unavailable [facility] DR MEDEIROS Primary Care Unavailable EMETERIO, MIS Dye Attending Unavailable EMETERIO, MIS Dye Admitting Unavailable COSTA, DR CULLEN Felton Primary Care Unavailable DEDRA MENDOZA Attending Unavailable DEDRA MENDOZA Admitting Unavailable DEDRA MENDOZA Consulting Unavailable IGOR, DR CULLEN Felton Primary Care Unavailable Cullen Costa Unavailable Cullen Costa MD Primary Care Provider Dedra Mendoza MD Attending Provider Cullen Costa MD Attending Provider Cullen Costa MD Primary Care Provider Dedra Mendoza MD Attending Provider [phone] HOLLAND SIMPSON Referring Unavailable VINHSCOUT Anderson Referring Unavailable TATIANA, HOLLAND Referring Unavailable TATIANA, HOLLAND Referring Unavailable TATIANA, HOLLAND Referring Unavailable TATIANA, HOLLAND Referring Unavailable MOUKARBLI CHACON Attending Unavailable TATIANA, HOLLAND Attending Unavailable TATIANA, HOLLAND Referring Unavailable MOUKARBEL, LI Attending Unavailable Allergies Allergy ClassificationReported Allergen(s)Allergy TypeDate of OnsetReaction(s) Facility (3 sources)patient allergy list reviewed by nurse or physiciaPropensity to adverse mczdbeela36-95-9432Lsjxrbl:[facility]Grid2020 [facility] Other (3 sources)Allergies ReconciledPropensity to adverse reactionsNewport Hospital Blue Egg Other Medications Current Medications MedicationDrug Class(es)DatesSig (Normalized)Sig (Original)allopurinol 100 mg oral tablet (20 sources)Xanthine Oxidase InhibitorStart: 45-54-5986mhce 1 tablet by mouth once dailyAllopurinol 100 mg tablet Active 0 .ROUTE .COMPLEX May 02, 2025 9:08am TAKE 1 TABLET BY MOUTH DAILY Complies with drug therapyStart: 12-23-2023 End: 79-52-5479thjt 1 tablet by mouth once dailyAllopurinol 100 mg tablet Discontinued 100 MG PO Daily October 12, 2024 4:33pm May 02, 2025 9:09amStart: 48-16-9514tozp 1 tablet by mouth every twenty-four hoursAllopurinol 100 MG 1 tablet Orally Once a day for 90 days May, Activeapixaban 5 mg oral tablet (16 sources)Factor Xa InhibitorStart: 06-27-2022 End: 71-57-5061avtc 1 tablet by mouth twice dailyApixaban (Eliquis) 5 mg tablet Active 5 MG PO Twice daily October 12, 2024 4:21pm Complies with drug therapy Aspir-81 81 MG (5 sources)take 1 tablet by mouth once dailyAspir-81 81 MG 1 tablet Orally Once a day Activeaspirin 81 mg delayed release oral tablet (6 sources)Platelet Aggregation Inhibitor, Nonsteroidal Anti-inflammatory Drug Start: 49-62-8916ihcs 1 tablet by mouth once dailyAspirin 81 mg tablet,delayed release (DR/EC) Active 81 MG PO Daily December 23, 2023 12:00am Complies with drug therapyatorvastatin 80 mg oral tablet (12 sources)HMG-CoA Reductase InhibitorStart: 62-25-8195sjak 1 tablet by mouth once daily at bedtimeAtorvastatin 80 mg Tablet Active 80 MG PO Daily at bedtime June 27, 2022 12:00am Complies withdrug therapybumetanide 1 mg oral tablet (18 sources)Loop DiureticStart: 98-94-0950upef 1 tablet by mouth twice daily Bumetanide 1 mg tablet Active 3 MG PO Twice daily December 23, 2023 12:00am Complies with drug therapyStart: 83-23-7982ktqg 3 mg by mouth twice daily Bumetanide Active 3 MG PO Twice daily December 23, 2023 12:00amStart: 06-27-2022 End: 65-16-7899ttaa 1 tablet by mouth twice dailyBumetanide (Bumex) 2 mg Tablet Discontinued 3 MG PO Twice daily June 27, 2022 12:00am December 23, 2023 1:58pmtake 3 tablets by mouth every twelve hoursBumetanide 1 MG 3 tablet Orally TWICE A DAY Activecholecalciferol 0.05 mg oral capsule (20 sources)Vitamin DStart: 04-39-5896lhig 1 capsule by mouth once daily Cholecalciferol (Vitamin D3) 50 mcg (2,000 unit) capsule Active 0 .ROUTE .COMPLEX 90 May 08, 2025 8:57am TAKE 1 CAPSULE BY MOUTH EVERY DAY Complies with drug therapyStart: 09-07-2024 End: 24-10-3551vfst 1 tablet by mouth once dailyCholecalciferol (Vitamin D3) (Vitamin D3) 50 mcg (2,000 unit) tablet Discontinued 0 .ROUTE .DOLKAEN67 October 12, 2024 4:33pm May 08, 2025 8:58am TAKE 1 TABLET BY MOUTH DAILY Start: 08-10-2024 End: 74-49-3171iejo 1 capsule by mouth once dailyCholecalciferol (Vitamin D3) 50 mcg (2,000 unit) capsule Discontinued 0 .ROUTE .COMPLEX 2023 9:07pm September 07, 2024 7:04pm TAKE 1 CAPSULE BY MOUTH DAILYStart: 12-23-2023 End: 00-70-1365ypfw 1 tablet by mouth once dailyCholecalciferol (Vitamin D3) 50 mcg (2,000 unit) tablet Discontinued 50 MCG PO Daily June 08, 2024 2:05pm August 10, 2024 9:07pmStart: 62-57-1959sckl 1 capsule by mouth once daily Cholecalciferol 25 MCG (1000 UT) 1 capsule Orally Once a day for 90 days Dec, Activetake 1 capsule by mouth once dailyCholecalciferol 25 MCG (1000 UT) 1 capsule Orally Once a day for 90 days ActivehydrALAZINE hydrochloride 25 mg oral tablet (18 sources)Arteriolar VasodilatorStart: 20-09-5888icld 1 tablet by mouth twice dailyHydralazine 25 mg tablet Active 25 MG PO Twice daily December 23, 2023 12:00am Complies with drug therapyStart: 06-27-2022 End: 40-35-4693ifzw 1 tablet by mouth three times dailyHydralazine 10 mg Tablet Discontinued 10 MG PO Three times daily June 27, 2022 12:00am December 23, 2023 1:59pmtake 1 tablet by mouth every twelve hourshydrALAZINE HCl 10 MG 1 tablet with food Orally Twice a day Wlgomz98 hr metoprolol succinate 25 mg extended release oral tablet (20 sources)beta-Adrenergic BlockerStart: 10-28-2024 End: 62-32-6358zcma 0.5 tablet by mouth once dailyMetoprolol Succinate 25 mg tablet extended release 24 hr Active 0 .ROUTE .COMPLEX April 25, 2025 12:25pm TAKE 1/2 TABLET BY MOUTH ONCE EVERYDAY Complies with drug therapyStart: 12-23-2023 End: 65-93-9391itpk 2 tablets by mouth once dailyMetoprolol Succinate 25 mg tablet extended release 24 hr Discontinued 12.5 MG PO Daily August 30, 2024 10:32pm October 28, 2024 12:31pmStart: 67-34-6790vibi 12.5 mg by mouth once dailyMetoprolol Succinate Active 12.5 MG PO Daily December 23, 2023 12:00am Start: 06-27-2022 End: 45-59-3053ezqd 2 tablets by mouth once dailyMetoprolol Succinate 50 mg Tablet Extended Release 24 Hr Discontinued 25 MG PO Daily June 27, 2022 12:00am December 23, 2023 2:00pmStart: 06-27-2022 End: 02-90-2496wlrd 25 mg by mouth once dailyMetoprolol Succinate Discontinued 25 MG PO Daily June 27, 2022 12:00am December 23, 2023 2:00pmtake 0.5 tablet by mouth once dailyMetoprolol Succinate ER 25 MG TAKE 1/2 TABLET BY MOUTH ONCE DAILY for 90 Activepotassium chloride 10 meq extended release oral tablet (19 sources)Start: 82-06-6702etsc 1 tablet by mouth once dailyPotassium Chloride 10 mEq tablet extended release Active 10 MEQ PO Daily February 15, 2025 2:06pm Complies with drug therapyStart: 05-12-2024 End: 27-36-1445hmgl 1 tablet by mouth once daily at mealtimePotassium Chloride 20 mEq tablet extended release Discontinued 0 .ROUTE .COMPLEX May 12, 2024 1:46pm February 15, 2025 2:06pm TAKE 1 TABLET BY MOUTH EVERY DAY WITH FOOD FOR 90 DAYSStart: 29-13-9130hzid 1 tablet by mouth once daily at mealtime Potassium Chloride Active 0 .ROUTE .COMPLEX May 12, 2024 1:46pm TAKE 1 TABLET BY MOUTH EVERY DAY WITH FOOD FOR 90 DAYSStart: 12-23-2023 End: 63-44-5092vqfp 1 tablet by mouth once dailyPotassium Chloride 20 mEq tablet extended release Discontinued 20 MEQ PO Daily December 23, 2023 12:00am May 12, 2024 1:46pmtake 1 tablet by mouth every twenty-four hoursPotassium Chloride ER 20 MEQ 1 tablet with food Orally Once a day for 90 days Activespironolactone 25 mg oral tablet (12 sources)Aldosterone AntagonistStart: 93-44-0846pjmk 1 tablet by mouth once dailySpironolactone 25 mg Tablet Active 25 MG PO Daily June 27, 2022 12:00am Complies with drug therapy Completed/Discontinued Medications MedicationDrug Class(es)DatesSig (Normalized)Sig (Original)amiodarone hydrochloride 200 mg oral tablet (12 sources)AntiarrhythmicStart: 06-27-2022 End: 52-38-2115glsg 1 tablet by mouth once dailyAmiodarone 200 mg Tablet Discontinued 200 MG PO Daily June 27, 2022 12:00am April 07, 2025 9:43am docusate sodium 100 mg oral tablet (8 sources)Start: 06-27-2022 End: 13-85-0536ybby 1 tablet by mouth three times daily as needed for constipationDocusate Sodium 100 mg Tablet Discontinued 100 MG PO Three times daily as needed for Constipation June 27, 2022 12:00am December 23, 2023 2:02pmtake 1 capsule by mouth every twenty-four hoursColace 100 MG 1 capsule as needed Orally Once a day Activedoxycycline hyclate 100 mg oral capsule (7 sources)Tetracycline-class DrugStart: 06-27-2022 End: 91-40-9247dyjj 1 capsule by mouth twice dailyDoxycycline Hyclate 100 mg capsule Discontinued 100 MG PO Twice daily 27 06June 27, 2022 12:00am December 23, 2023 2:02pmisosorbide dinitrate 10 mg oral tablet (20 sources)Nitrate VasodilatorStart: 96-53-6476kvqj 1 tablet by mouth three times dailyIsosorbide Dinitrate Active 0 .ROUTE .COMPLEX 270 June 05, 2024 7:40am TAKE 1 TABLET BY MOUTH THREE TIMES A DAYStart: 12-08-2023 End: 40-54-0358qioq 1 tablet by mouth three times dailyIsosorbide Dinitrate 10 mg tablet Discontinued 0 .ROUTE .COMPLEX 270 June 05, 2024 7:40am Dec ember 2023 10:33pm TAKE 1 TABLET BY MOUTH THREE TIMES A DAYStart: 12-08-2023 End: 86-26-7031pbqg 1 tablet by mouth three times dailyIsosorbide Dinitrate Discontinued 0 .ROUTE .COMPLEX 270 December 08, 2023 11:52am March 08, 2024 8:33am TAKE 1 TABLET BY MOUTH THREE TIMES A DAYStart: 15-76-8731wjlz 1 tablet by mouth three times dailyIsosorbide Dinitrate Active 0 .ROUTE .COMPLEX 270 December 08, 2023 11:52am TAKE 1 TABLET BY MOUTH THREE TIMES A DAYStart: 06-27-2022 End: 19-83-7670mudv 1 tablet by mouth three times dailyIsosorbide Dinitrate 10 mg Tablet Discontinued 10 MG PO Three times daily June 27, 2022 12:00am December 08, 2023 11:52am allow nitrate-free interval of 12-14 hrs per 24-hr period Problems Active Problems Problem ClassificationProblemDateDocumented DateEpisodic/ChronicCardiac dysrhythmias (8 sources)Paroxysmal atrial fibrillation; Translations: [Paroxysmal atrial fibrillation]Onset: 13-55-9027WaptwggMvivfwa kidney disease (20 sources)Chronic kidney disease stage 4; Translations: [Chronic kidney disease, stage 4 (severe)]Onset: 46-24-3987DynupynTdgbuss kidney disease (1 source)Chronic kidney disease; Translations: [CHRONIC KIDNEY DISEASE STAGE 3B]Onset: 27-63-1372Ouwskky ulcer of skin (2 sources)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; Translations: [Non-pressurechronic ulcer of right calf limited to breakdown of skin]Onset: 51-20-1639JgbkcseLecwyyxwbz disorders (20 sources)Cardiac pacemaker in situ; Translations: [Presence of cardiac pacemaker]Onset: 58-03-5964LafpnadKouucdqbxz heart failure; nonhypertensive (20 sources)Congestive heart failure; Translations: [Unspecified systolic (congestive) heart failure]Onset: 80-45-6898VlnxyrbLksancfw atherosclerosis and other heart disease (6 sources)Atherosclerotic heart disease of crow coronary artery without angina pectoris; Translations: [Atherosclerosis of coronary artery without angina pectoris]Onset: 31-64-1130FfqiupnCqricrpd atherosclerosis and other heart disease (3 sources)Presence of aortocoronary bypass graft; Translations: [PRESENCE AORTOCORONARY BYPASS GRAFT]Onset: 52-75-0895MxvwcecjQkyzcjsjx of lipid metabolism (5 sources)Pure hypercholesterolemia, unspecified; Translations: [Hyperlipidemia, unspecified]Onset: 68-32-1261CxazebaTbewyqoob hypertension (12 sources)Essential hypertension; Translations: [Essential (primary) hypertension]Onset: 02-62-4030NcigqcaUlso and other crystal arthropathies (4 sources)Gout, unspecified; Translations: [Primary gout]Onset: 05-09-2016 ChronicHeadache; including migraine (1 source)Headache; including migraine; Translations: [HEADACHE UNSPECIFIED] Onset: 10-52-7557Fapyzcqiuwxp with complications and secondary hypertension (20 sources)Hypertensive heart and chronic kidney disease with heart failure and stage 1 through stage 4 chronic kidney disease, or unspecified chronic kidney disease; Translations: [Hypertensive chronic kidney disease with stage 1 through stage 4 chronic kidney disease, or unspecified chronic kidney disease]Onset: 59-85-6908IbesziaHdzlgvm (3 sources)Candidiasis of skin and nails; Translations: [Candidiasis of skin and nail]EpisodicNutritional deficiencies (18 sources)Vitamin D deficiency; Translations: [Vitamin D deficiency, unspecified]ChronicOpen wounds of extremities (4 sources)Unspecified open wound, left lower leg, sequela; Translations: [Open wound of knee and/or leg and/or ankle]Onset: 07-50-0269UhdmecynVibcj circulatory disease (3 sources)Elevated blood-pressure reading without diagnosis of hypertension; Translations: [Elevated blood-pressure reading, without diagnosis of hypertension]EpisodicOther diseases of kidney and ureters (7 sources)Cyst of kidney, acquired; Translations: [Cyst of kidney, acquired] Onset: 08-79-9917EtokqoyuRlsdy diseases of kidney and ureters (8 sources)Acquired renal cystic disease; Translations: [Cyst of kidney, acquired]99-28-7736ZytfmgwvVerou diseases of veins and lymphatics (1 source)Lymphedema, not elsewhere classified; Translations: [LYMPHEDEMA NOT ELSEWHERE CLASSIFIED]Onset: 27-02-1067CjaimgxUfcht diseases of veins and lymphatics (5 sources)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; Translations: [CHRON VENOUS HTN W/ULCER RT LW EXT]Onset: 01-21-2022 ChronicOther diseases of veins and lymphatics (3 sources)Lymphedema; Translations: [Lymphedema, not elsewhere classified] ChronicOther diseases of veins and lymphatics (5 sources)Peripheral venous insufficiency; Translations: [Venous insufficiency (chronic) (peripheral)]EpisodicOther endocrine disorders (12 sources)Hyperparathyroidism; Translations: [Hyperparathyroidism, unspecified]44-27-6442QagyswiJtnji endocrine disorders (6 sources)Hyperparathyroidism, unspecified; Translations: [Hyperparathyroidism, unspecified]ChronicOther inflammatory condition of skin (1 source)Erythematous condition, unspecified; Translations: [Erythematous condition, unspecified]Onset: 68-30-5588GsojigsoMjodr nutritional; endocrine; and metabolic disorders (5 sources)Morbid obesity; Translations: [Morbid (severe) obesity due to excess calories]ChronicOther nutritional; endocrine; and metabolic disorders (3 sources)Morbid (severe) obesity due to excess calories; Translations: [Morbid obesity]Onset: 580834-71-4852LcljmogVjmyu nutritional; endocrine; and metabolic disorders (1 source)Body mass index (BMI) 45.0-49.9, adult; Translations: [BODY MASS INDEX BMI 45.0-49.9 ADULT]Onset: 10-32-0246VrvlrbrIlamp nutritional; endocrine; and metabolic disorders (13 sources)Body mass index 40+ - severely obese; Translations: [Body mass index (BMI) 40.0-44.9, adult]29-50-4539HkazqyfJrzee nutritional; endocrine; and metabolic disorders (6 sources)Hyperuricemia without signs of inflammatory arthritis and tophaceous disease; Translations: [Other abnormal blood chemistry]EpisodicOther nutritional; endocrine; and metabolic disorders (8 sources)Hyperuricemia; Translations: [Hyperuricemia without signs of inflammatory arthritis and tophaceous disease]50-66-3687MtlyuarzHelywhxgc; thrombophlebitis and thromboembolism (1 source)Chronic embolism and thrombosis of right femoral vein; Translations: [CHRON EMBO THROMB RT FEMORAL VEIN]Onset: 17-05-5035JkarjbnNlklxxmlv; thrombophlebitis and thromboembolism (5 sources)Acute embolism and thrombosis of unspecified deep veins of right lower extremity; Translations: [Personal history of other venous thrombosis and embolism]Onset: 21-25-5225McvbqsqeDxbabhfa codes; unclassified (3 sources)Tobacco user; Translations: [Tobacco use]EpisodicResidual codes; unclassified (3 sources)Edema; Translations: [Edema]EpisodicSepticemia (except in labor) (3 sources)Sepsis due to Pseudomonas; Translations: [Sepsis due to Pseudomonas] EpisodicSkin and subcutaneous tissue infections (18 sources)Cellulitis; Translations: [Cellulitis, unspecified]Onset: 12-13-2021 82-25-5046CpvxacrdYykvepo on above:Problem List clean-up per request of Phys. EHR CmteUnclassified (1 source)CONTACT W/AND (SUSP) EXPOS COVID-19; Translations: [CONTACT W/AND (SUSP) EXPOS COVID-19]Onset: 02-96-0359Lcexqnkghvhu (1 source)CHRN KIDNEY DISEASE STG 3 UNSP; Translations: [CHRN KIDNEY DISEASE STG 3 UNSP]Onset: 43-73-1715Acacfokr veins of lower extremity (8 sources)Pain co-occurrent and due to varicose veins of bilateral legs; Translations: [Varicose veins of bilateral lower extremities with pain]Onset: 77-88-4792Ortkwzhn Past or Other Problems Problem ClassificationProblemDateDocumented DateEpisodic/ChronicAcute and unspecified renal failure (1 source)Acute kidney failure, unspecified; Translations: [ACUTE KIDNEY FAILURE UNSPECIFIED]Onset: 71-44-5009YlghafmfSoeurlvbp infection; unspecified site (2 sources)Bacteremia; Translations: [Pseudomonas (aeruginosa) (mallei) (pseudomallei) as the cause of diseases classified elsewhere]Onset: 12-21-2021 EpisodicE Codes: Fall (1 source)Fall on same level, unspecified, initial encounter; Translations: [FALL SAME LEVEL UNSPECIFIED INITIAL]Onset: 19-86-1761ReolchmzBnyyr and electrolyte disorders (1 source)Dehydration; Translations: [DEHYDRATION]Onset: 11-22-7216Srwcbcsh Malaise and fatigue (4 sources)Weakness; Translations: [WEAKNESS]Onset: 71-93-5748JqqdrjxnUmwbl aftercare (1 source)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; Translations: [STATE WILDLIFE OFFICER CURRENT USE OF ASPIRIN]Onset: 38-66-1645NjsvgfzhKmuhe aftercare (1 source)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; Translations: [OTH STATE WILDLIFE OFFICER CURRENT DRUG THERAPY]Onset: 54-93-1899CjtunoxsEimyw aftercare (1 source)predatory animal exterminator (current) use of anticoagulants; Translations: [STATE WILDLIFE OFFICER CURRNT USE ANTICOAGULANTS]Onset: 51-84-9329EvzwvjvnMsfwf connective tissue disease (4 sources)Other specified soft tissue disorders; Translations: [Other specified soft tissue disorders]Onset: 27-78-6124CzfszjhbAfxqh diseases of veins and lymphatics (1 source)Venous insufficiency (chronic) (peripheral); Translations: [VENOUS INSUFF CHRONIC PERIPHERAL]Onset: 30-29-4302KqgkrtdlUwmin lower respiratory disease (4 sources)Shortness of breath; Translations: [SHORTNESS OF BREATH]Onset: 48-77-7683FdzadmspZyxcx skin disorders (5 sources)Other specified disorders of the skin and subcutaneous tissue; Translations: [OTH SPEC D/O SKIN ANDSUBQ TISSUE]Onset: 88-02-3020YyuxrrkoKqbde skin disorders (1 source)Disorder of the skin and subcutaneous tissue, unspecified; Translations: [DISORDER SKIN AND SUBQ TISSUE UNS]Onset: 73-74-2148Qaomkbju Residual codes; unclassified (1 source)Generalized edema; Translations: [GENERALIZED EDEMA]Onset: 04-12-2022 EpisodicResidual codes; unclassified (4 sources)Edema, unspecified; Translations: [EDEMA UNSPECIFIED]Onset: 17-83-7363ZzserkvkMwhozmex codes; unclassified (1 source)Localized edema; Translations: [LOCALIZED EDEMA]Onset: 01-21-2022 EpisodicSuperficial injury; contusion (1 source)Blister (nonthermal), right lower leg, initial encounter; Translations: [BLISTER NONTHERMAL RT LOW LEG INIT]Onset: 95-89-1956Xghoqywn Results Test NameValueInterpretationReference RangeFacilityOffice Visiton 06-24-2025 Follow-up [id number] Man Patel 1950 M Date Provider Department Center 06/24/2025 LI [facility]ADDOX CARD [facility] Family History Problem Relation Age of Onset Coronary artery disease Mother Hyperlipidemia Mother Hypertension Mother Stroke Mother Diabetes Mother Coronary artery disease Father Hyperlipidemia Father Hypertension Father Family Status - Relation Status Age at Mother Father Sister Alive Brother Alive Level of Service:71659 NE OFFICE/OUTPATIENT ESTABLISHED LOW [facility]Or[facility] Onlyon 47-78-5381Pkthym [id number] Man Patel 1950 M Date Provider Department Center 06/23/2025 YOLI MCGREGOR C CARD [facility] Family History Problem Relation Age of Onset Coronary artery disease Mother Hyperlipidemia Mother Hypertension Mother Stroke Mother Diabetes Mother Coronary artery disease Father Hyperlipidemia Father Hypertension Father Family Status - Relation Status Age at Mother Father Sister Alive Brother AliveNormalUniMercy Health Tiffin HospitalErythrocyte distribution width Auto (RBC) [Ratio]Ordered By: Dedra Mendoza on 15-29-2510Zxgyyqdouir distribution width (RBC) [Ratio]14.8 %11.0-15.0[facility] Glomerular filtration rate (GFR) estimation in non- AmericanOrdered By: Dedra Mendoza on 56-88-4059YZX/1.73 sq M.predicted among non-blacks MDRD (S/P/Bld) [Vol rate/Area]29 mL/min/{1.73_m2}Low>=60 mL/min/1.73m 2FTriHealth Good Samaritan HospitalHematocrit Auto (Bld) [Volume fraction]Ordered By: Dedra Mendoza on 48-11-8029Ctjcdickjx (Bld) [Volume fraction]45.9 %42.0-54.0[facility]burgHemoglobin [Mass/volume] in BloodOrdered By: Dedra Mendoza on 04-26-4549Duoevryieo (Bld) [Mass/Vol]14.8 g/dL14.0-18.0[facility]burgLaboratory - Chemistry and Chemistry - challengeOrdered By: Dedra Mendoza on 38-33-2852Jtlgrhp [Mass/Vol]3.9 g/dL3.4-5.0[facility]burgCalcium [Mass/Vol]8.9 mg/dL8.5-10.1FTri[facility] Chloride [Moles/Vol]100 mmol/Z58-430XpooryuijKettering Health MiamisburgCO2 [Moles/Vol]29.3 mmol/L21.0-32.0[facility]burgCreatinine [Mass/Vol]2.26 mg/dLHigh0.70-1.30[facility] MiamisburgGFR/1.73 sq M.predicted MDRD (S/P/Bld) [Vol rate/Area]35 mL/min/{1.73_m2}Low>=60 mL/min/1.73m 2FTriHealth Good Samaritan HospitalGlucose [Mass/Vol]128 mg/dLHigh 74-106[facility] MiamisburgMagnesium [Mass/Vol]2.6 mg/dLHigh1.8-2.4 [facility]burgPotassium [Moles/Vol]4.1 mmol/L3.5-5.1FSt. Mary's Medical Centerodium [Moles/Vol]140 mmol/C793-319JvujoacdhKettering Health MiamisburgUrate [Mass/Vol]8.2 mg/dLHigh3.5-7.2FTriHealth Good Samaritan HospitalUrea nitrogen [Mass/Vol]50.0 mg/dLHigh7.0-18.0[facility] MiamisburgUrea nitrogen/Creatinine [Mass ratio]22.1 mg/mgKettering Health MiamisburgLaboratory - UrinalysisOrdered By: Dedra Mendoza on 04-30-7694Kwdiffb (U) [Mass/Vol]19.0 mg/dLHigh<=11.9[facility] MiamisburgLeukocytes [#/volume] corrected for nucleated erythrocytes in Blood by Automated coun Ordered By: Dedra Mendoza on 48-48-0056LDZ corrected for nucl RBC Auto (Bld) [#/Vol]8.1 10 3/uL4.0-11.0[facility] MiamisburgMCH Auto (RBC) [Entitic mass]Ordered By: Dedra Mendoza on 15-04-1098SUN (RBC) [Entitic mass]29.9 pg25.9-34.0[facility] MiamisburgMCHC Auto (RBC) [Mass/Vol]Ordered By: Dedra Mendoza on 10-31-0981NOFV (RBC) [Mass/Vol]32.2 g/dL29.9-35.2FTriHealth Good Samaritan HospitalMCV Auto (RBC) [Entitic vol]Ordered By: Dedra Mendoza on 02-04-2709GGY (RBC) [Entitic vol]92.7 fL80.0-94.0[facility]burgNo Panel InformationOrdered By: Dedra Mendoza on 94-05-4406Lloxr Random Diekhgvhfs083.30 mg/dL20.00-300.00[facility]25-Hydroxy Vitamin D Total41.1 ng/mLKettering Health MiamisburgComment on above:<20 ng/mL Vit D krhdkuzzg58-<30 ng/mL Vit D fkbbwnwdutvw59-681 ng/mL Vit D sufficient>100 ng/mL Potential ToxicityParathyroid Hormone (Intact)111 pg/mL Pyatmztk53-26LiwhybwlwKettering Health MiamisburgComment on above:Performed at: [facility] [id number] Director: New Vega PhD, Phone: [phone] Level3.0 mg/dL2.6-4.7FTriHealth Good Samaritan HospitalPlatelet mean volume Auto (Bld) [Entitic vol]Ordered By: Dedra Mendoza on 58-71-1310Opfroacj mean volume (Bld) [Entitic vol]10.5 fL 9.5-13.5FTriHealth Good Samaritan HospitalPlatelets Auto (Bld) [#/Vol]Ordered By: Dedra Mendoza on 45-26-2676Objywjmgv (Bld) [#/Vol]188 10 3/hJ495-376BqluushvhKettering Health MiamisburgRBC Auto (Bld) [#/Vol]Ordered By: Dedra Mendoza on 17-23-7102EAT (Bld) [#/Vol]4.95 10 6/uL4.70-6.10St. [facility] Hospitalerum or plasma anion gap determinationOrdered By: Dedra Mendoza on 75-08-1975Ghdcc gap [Moles/Vol]14.8 mmol/LFTriHealth Good Samaritan HospitalUrine protein/creatinine ratioOrdered By: Dedra Mendoza on 06-16-2025 Protein/Creatinine (U) [Ratio]0.15[facility]burgOrders Onlyon 23-10-7447Tvslkm [id number] JoeljeanetteroxanaMan diggs Db 1950 M Date Provider Department Center 03/26/2025 HOLL[facility] HATHAWAY [facility] CARD [place] HeartVAS Family History Problem Relation Age of Onset Coronary artery disease Mother Hyperlipidemia Mother Hypertension Mother Stroke Mother Diabetes Mother Coronary artery disease Father Hyperlipidemia Father Hypertension Father Family Status - Relation Status Age at Mother Father Sister Alive Brother AliveNormalUniversity of Chi St. [facility], TxErythrocyte distribution width Auto (RBC) [Ratio]on 35-83-4586Rbmakretxqi distribution width (RBC) [Ratio]Erythrocyte distribution width [Ratio] by Automated ykpvtGxio50.0-15.0 [facility]amisburgErythrocyte distribution width (RBC) [Ratio] 15.9 %High11.0-15.0[facility]burgEstimated glomerular filtration rate (GFR) non- Americanon 79-22-4289GVI/1.73 sq M.predicted among non-blacks MDRD (S/P/Bld) [Vol rate/Area]Estimated glomerular filtration rate (GFR) non- AmericanLow>=60 mL/min/1.73m [address] [place], [place] [address]GFR/1.73 sq M.predicted among non-blacks MDRD (S/P/Bld) [Vol rate/Area]23 mL/min/{1.73_m2}Low>=60 mL/min/1.73m [address] [place] [address] Hematocrit Auto (Bld) [Volume fraction]on 79-55-9951Ynjjufowmb (Bld) [Volume fraction]Hematocrit [Volume Fraction] of Blood by Automated count42.0-54.0 [facility]burgHematocrit (Bld) [Volume fraction]44.8 % 42.0-54.0[facility]burgHemoglobin [Mass/volume] in Bloodon 05-74-7460Ckkpefrcbp (Bld) [Mass/Vol]Hemoglobin [Mass/volume] in Blood14.0-18.0 [facility]burgHemoglobin (Bld) [Mass/Vol]14.5 g/dL14.0-18.0 [facility]burgIron binding capacity [Mass/volume] in Serum or Plasmaon 35-36-1606Edvm binding capacity [Mass/Vol]Iron binding capacity [Mass/volume] in Serum or Xioxhh586.0-450.0[facility]burgIron binding capacity [Mass/Vol]317.0 ug/dL250.0-450.0[facility]burgIron saturation [Mass Fraction] in Serum or Plasmaon 33-44-9007Ijld saturation [Mass fraction]Iron saturation [Mass Fraction] in Serum or Plasma [facility]burgIron saturation [Mass fraction]22.4 %[facility]burgLaboratory - Chemistry and Chemistry - challengeon 68-36-6429Raqmgpz [Mass/Vol]3.7 g/dL3.4-5.0[facility] Calcium [Mass/Vol]9.5 mg/dL8.5-10.1FTriHealth Good Samaritan HospitalChloride [Moles/Vol]98 mmol/P62-654DgibrecojKettering Health MiamisburgCO2 [Moles/Vol]27.7 mmol/L21.0-32.0[facility]amisburgCobalamin (Vitamin B12) [Mass/Vol]520 pg/hK654-0932GzmndqnrzKettering Health MiamisburgComment on above: Performed at: [facility] [address] [id number] Director: New Vega PhD, Phone: [phone] [Mass/Vol]2.75 mg/dLHigh0.70-1.30[facility] MiamisburgFerritin [Mass/Vol]85.0 ng/mL 26.0-388.0[facility]burgGFR/1.73 sq M.predicted MDRD (S/P/Bld) [Vol rate/Area]28 mL/min/{1.73_m2}Low>=60 mL/min/1.73m 2FTriHealth Good Samaritan HospitalGlucose [Mass/Vol]143 mg/eSQxmk45-095NjqiicnqfKettering Health MiamisburgIron [Mass/Vol]71.0 ug/dL65.0-175.0[facility]burgMagnesium [Mass/Vol]2.7 mg/dLHigh1.8-2.4FTri[facility] Hospital Potassium [Moles/Vol]4.7 mmol/L3.5-5.1FSt. Mary's Medical Centerodium [Moles/Vol]136 mmol/O820-121PhcpqkjugKettering Health MiamisburgUrate [Mass/Vol]7.6 mg/dLHigh3.5-7.2FTriHealth Good Samaritan HospitalUrea nitrogen [Mass/Vol]63.0 mg/dLHigh7.0-18.0[facility]burgUrea nitrogen/Creatinine [Mass ratio]22.9 mg/mgKettering Health MiamisburgLaboratory - Urinalysison 85-89-4929Snazjaf (U) [Mass/Vol]21.4 mg/dLHigh<=11.9[facility]burgLeukocytes [#/volume] corrected for nucleated erythrocytes in Blood by Automated counon 62-81-9886BZM corrected for nucl RBC Auto (Bld) [#/Vol] Leukocytes [#/volume] corrected for nucleated erythrocytes in Blood by Automated coun4.0-11.0[facility]burgWBC corrected for nucl RBC Auto (Bld) [#/Vol]8.5 10 3/uL4.0-11.0[facility] Auto (RBC) [Entitic mass]on 59-85-3971INL (RBC) [Entitic mass]MCH [Entitic mass] by Automated count25.9-34.0[facility] (RBC) [Entitic mass]28.6 pg25.9-34.0[facility] MiamisburgMCHC Auto (RBC) [Mass/Vol] on 30-65-1275WTLD (RBC) [Mass/Vol]MCHC [Mass/volume] by Automated count29.9-35.2 [facility] MiamisburgMCHC (RBC) [Mass/Vol]32.4 g/dL29.9-35.2 [facility]burgMCV Auto (RBC) [Entitic vol]on 14-95-6413HYE (RBC) [Entitic vol]MCV [Entitic volume] by Automated count80.0-94.0[facility]burgMCV (RBC) [Entitic vol]88.4 fL80.0-94.0[facility]burgNo Panel Informationon 769143-Emlsazr Vitamin D Total40.6 ng/mLKettering Health MiamisburgComment on above:<20 ng/mL Vit D pmliklzra23-<30 ng/mL Vit D msjyaindpfoy03-046 ng/mL Vit D sufficient>100 ng/mL Potential IuienmwcUqvvpi95.80 ng/mL8.60-58.90[facility] Parathyroid Hormone (Intact)106 pg/dHMyiiahsl82-38MvzemyxhnKettering Health MiamisburgComment on above:Performed at: [facility] [id number] Director: New Vega PhD, Phone: [phone] Phosphorus Level3.0 mg/dL2.6-4.7FTriHealth Good Samaritan HospitalUrine Random Dfwotdrgje822.10 mg/dL20.00-300.00[facility]burgPlatelet mean volume Auto (Bld) [Entitic vol]on 39-61-8159Gamldkpe mean volume (Bld) [Entitic vol]Platelet mean volume [Entitic volume] in Blood by Automated count9.5-13.5 [facility]burgPlatelet mean volume (Bld) [Entitic vol]10.1 fL 9.5-13.5FTriHealth Good Samaritan HospitalPlatelets Auto (Bld) [#/Vol]on 69-16-8942Fiywovgth (Bld) [#/Vol]Platelets [#/volume] in Blood by Automated -285VlhhurpslKettering Health MiamisburgPlatelets (Bld) [#/Vol]169 10 3/uL 150-450K[facility] MiamisburgRBC Auto (Bld) [#/Vol]on 14-71-4510LOS (Bld) [#/Vol]Erythrocytes [#/volume] in Blood by Automated count4.70-6.10 [facility] MiamisburgRBC (Bld) [#/Vol]5.07 10 6/uL4.70-6.10St. [facility] Hospitalerum or plasma anion gap determinationon 02-09-2025 Anion gap [Moles/Vol]Serum or plasma anion gap determinationKettering Health MiamisburgAnion gap [Moles/Vol]15.0 mmol/LFTriHealth Good Samaritan Hospital Urine protein/creatinine ratioon 25-23-4743Grubppf/Creatinine (U) [Ratio]Urine protein/creatinine ratioKettering Health MiamisburgProtein/Creatinine (U) [Ratio]0.17[facility]burgBasophils/100 WBC Manual cnt (Bld)on 70-39-3251Cnqjcbnsd/100 WBC (Bld)Basophils/100 leukocytes in Blood by Manual count0.2-2.0[facility]burgEosinophils/100 WBC Manual cnt (Bld)on 32-35-0594Thbadtrstqp/100 WBC (Bld)Eosinophils/100 leukocytes in Blood by Manual count0.9-7.0[facility]burgEstimated glomerular filtration rate (GFR) non- Americanon 47-75-1164ZJM/1.73 sq M.predicted among non-blacks MDRD (S/P/Bld) [Vol rate/Area]Estimated glomerular filtration rate (GFR) non- AmericanLow>=60 mL/min/1.73m 2FTriHealth Good Samaritan HospitalLaboratory - Chemistry and Chemistry - challengeon 60-15-2509Ysjqqcn [Mass/Vol]9.1 mg/dL8.5-10.1FTriHealth Good Samaritan HospitalChloride [Moles/Vol] 100 mmol/F80-486GjfhtvphsKettering Health MiamisburgCO2 [Moles/Vol]29.0 mmol/L 21.0-32.0[facility]amisburgCreatinine [Mass/Vol]3.05 mg/dLHigh 0.70-1.30[facility]burgGFR/1.73 sq M.predicted MDRD (S/P/Bld) [Vol rate/Area]25 mL/min/{1.73_m2}Low>=60 mL/min/1.73m 2FTriHealth Good Samaritan HospitalGlucose [Mass/Vol]115 mg/gJXrne22-798JjecwxbnxKettering Health MiamisburgPotassium [Moles/Vol]4.5 mmol/L3.5-5.1FT[facility] Sodium [Moles/Vol]138 mmol/L307-084UbbkezicgKettering Health MiamisburgUrea nitrogen [Mass/Vol]56.0 mg/dLHigh7.0-18.0[facility] MiamisburgUrea nitrogen/Creatinine [Mass ratio]18.4 mg/mgKettering Health [facility]amisburg Laboratory - Hematology and Cell countson 23-70-1446Sgoymevvjpg/100 WBC (Bld)4.0 %Low20.5-60.0[facility]amisburgMonocytes/100 WBC (Bld)7.0 % 1.7-12.0[facility]burgNo Panel Informationon 01-03-2025 Absolute Basophils (Manual)0.09 10 3/uL0.00-0.10[facility]burgEosinophils # (Manual)0.36 10 3/uL0.00-0.70[facility]burgLymphocytes # (Manual)0.36 10 3/uLLow1.20-3.80[facility]burgMonocytes # (Manual)0.64 10 3/uL0.30-0.80[facility] Segmented Neutrophils # (Manual)7.72 10 3/uLHigh1.4-6.5FTriHealth Good Samaritan HospitalOffice Visiton 84-45-9967Gdocbt-up [id number] Man Patel 1950 M Date Provider Department Center 01/03/2025 [facility]DOX [facility] Family History Problem Relation Age of Onset Coronary artery disease Mother Hyperlipidemia Mother Hypertension Mother Stroke Mother Diabetes Mother Coronary artery disease Father Hyperlipidemia Father Hypertension Father Family Status - Relation Status Age at Mother Father Sister Alive Brother Alive Level of Service:42978 NE OFFICE/OUTPATIENT ESTABLISHED MOD MDM 30 [facility] Northegmented neutrophils/100 WBC Manual cnt (Bld)on 85-56-5912Wqsvmeuka neutrophils/100 WBC (Bld)Manual blood segmented neutrophils/100 [address]zglepqhfMhnh14.0-75.0[facility] Hospitalerum or plasma anion gap determinationon 30-11-4960Uazqa gap [Moles/Vol]Serum or plasma anion gap determinationKettering Health MiamisburgErythrocyte distribution width Auto (RBC) [Ratio]on 66-90-1961Dftergaeuvf distribution width (RBC) [Ratio]Erythrocyte distribution width [Ratio] by Automated xejteGzjc64.0-15.0 [facility]burgEstimated glomerular filtration rate (GFR) non- Americanon 19-83-2678FZA/1.73 sq M.predicted among non-blacks MDRD (S/P/Bld) [Vol rate/Area]Estimated glomerular filtration rate (GFR) non- AmericanLow>=60 mL/min/1.73m 2FTriHealth Good Samaritan HospitalHematocrit Auto (Bld) [Volume fraction]on 46-16-1245Sjmufobptj (Bld) [Volume fraction]Hematocrit [Volume Fraction] of Blood by Automated count42.0-54.0[facility]burgHemoglobin [Mass/volume] in Bloodon 98-33-9936Vouhhxwouk (Bld) [Mass/Vol] Hemoglobin [Mass/volume] in FdephAqs75.0-18.0[facility] Laboratory - Chemistry and Chemistry - challengeon 58-39-0511Ommmvbh [Mass/Vol] 3.8 g/dL3.4-5.0[facility]burgCalcium [Mass/Vol]9.4 mg/dL 8.5-10.1FTri[facility] Samaritan HospitalChloride [Moles/Vol]100 mmol/L98-107 [facility]burgCO2 [Moles/Vol]30.8 mmol/L21.0-32.0[facility]amisburgCreatinine [Mass/Vol]2.95 mg/dLHigh0.70-1.30[facility]burgGFR/1.73 sq M.predicted MDRD (S/P/Bld) [Vol rate/Area]26 mL/min/{1.73_m2}Low>=60 mL/min/1.73m 2FTriHealth Good Samaritan HospitalGlucose [Mass/Vol]131 mg/pDHdjb94-468RzoagptddKettering Health MiamisburgMagnesium [Mass/Vol]2.4 mg/dL1.8-2.4FTriHealth Good Samaritan HospitalPotassium [Moles/Vol] 4.4 mmol/L3.5-5.1FSt. Mary's Medical Centerodium [Moles/Vol]138 mmol/L 136-145[facility] MiamisburgUrate [Mass/Vol]8.4 mg/dLHigh3.5-7.2 [facility]burgUrea nitrogen [Mass/Vol]63.0 mg/dLHigh7.0-18.0 [facility]amisburgUrea nitrogen/Creatinine [Mass ratio]21.4 mg/mg [facility]burgLaboratory - Urinalysison 00-81-5214Scwjqtw (U) [Mass/Vol]19.9 mg/dLHigh<=11.9[facility]amisburgLeukocytes [#/volume] corrected for nucleated erythrocytes in Blood by Automated counon 06-58-0825UPL corrected for nucl RBC Auto (Bld) [#/Vol]Leukocytes [#/volume] corrected for nucleated erythrocytes in Blood by Automated coun4.0-11.0[facility] HospitalH Auto (RBC) [Entitic mass]on 67-37-9403TNY (RBC) [Entitic mass]MCH [Entitic mass] by Automated count25.9-34.0[facility] HospitalHC Auto (RBC) [Mass/Vol]on 04-34-3186MXQZ (RBC) [Mass/Vol]MCHC [Mass/volume] by Automated count29.9-35.2FTriHealth Good Samaritan HospitalMCV Auto (RBC) [Entitic vol]on 43-42-6086JZY (RBC) [Entitic vol]MCV [Entitic volume] by Automated count80.0-94.0[facility]burgNo Panel Information on 924667-Sjiqbql Vitamin D Total34.4 ng/mLKettering Health MiamisburgComment on above:<20 ng/mL Vit D tuqmiuacd55-<30 ng/mL Vit D srnxyxmgqmav74-618 ng/mL Vit D sufficient>100 ng/mL Potential Toxicity Parathyroid Hormone (Intact)85 pg/uMTvzxkkak78-12HobfdwfsvKettering Health MiamisburgComment on above:Performed at: [facility] [id number] Director: New Vega PhD, Phone: [phone] Phosphorus Level3.6 mg/dL2.6-4.7FTriHealth Good Samaritan HospitalUrine Random Uqpkapscmt527.67 mg/dL20.00-300.00[facility]amisburgPlatelet mean volume Auto (Bld) [Entitic vol]on 21-48-5208Fmijbvwu mean volume (Bld) [Entitic vol]Platelet mean volume [Entitic volume] in Blood by Automated count9.5-13.5 [facility]burgPlatelets Auto (Bld) [#/Vol]on 10-08-2024 Platelets (Bld) [#/Vol]Platelets [#/volume] in Blood by Automated -023 [facility]amisburgRBC Auto (Bld) [#/Vol]on 77-90-4360QVO (Bld) [#/Vol]Erythrocytes [#/volume] in Blood by Automated countLow4.70-6.10St. [facility] Hospitalerum or plasma anion gap determinationon 81-59-0784Swsgh gap [Moles/Vol]Serum or plasma anion gap determinationKettering Health MiamisburgUrine protein/creatinine ratioon 99-52-6349Cnrruji/Creatinine (U) [Ratio]Urine protein/creatinine ratioKettering Health MiamisburgOrders Onlyon 12-17-4534Ycdjax [id number] Man Patel 1950 M Date Provider Department Center 09/14/2024 HOMERO VEGA [facility] VASC LAB [place] HeartVAS Family History Problem Relation Age of Onset Coronary artery disease Mother Hyperlipidemia Mother Hypertension Mother Stroke Mother Diabetes Mother Coronary artery disease Father Hyperlipidemia Father Hypertension Father Family Status - Relation Status Age at Mother FatherNormalUniMercy Health Tiffin HospitalOffice Visiton 99-46-3847Vtlppo- up [id number] Man Patel 1950 M Date Provider Department Center 08/03/2024 [place] HATHAWAY CARD [facility] Family History Problem Relation Age of Onset Coronary artery disease Mother Hyperlipidemia Mother Hypertension Mother Stroke Mother Diabetes Mother Coronary artery disease Father Hyperlipidemia Father Hypertension Father Family Status - Relation Status Age at Mother Father Level of Service:76809 NE OFFICE/OUTPATIENT NEW MODERATE MDM 45 MINUTES Reason for Visit and Comments: Follow-up [773040]NormalUnPremier Health Miami Valley Hospital SouthErythrocyte distribution width Auto (RBC) [Ratio]on 37-69-4168Mdyhwgroncb distribution width (RBC) [Ratio]15.0 %11.0-15.0[facility]burgEstimated glomerular filtration rate (GFR) non- Americanon 54-17-6623JTG/1.73 sq M.predicted among non-blacks MDRD (S/P/Bld) [Vol rate/Area]25 mL/min/{1.73_m2} Low>=60[facility]amisburgHematocrit Auto (Bld) [Volume fraction] on 94-19-0607Drmiomncya (Bld) [Volume fraction]48.1 %42.0-54.0[facility]burgHemoglobin [Mass/volume] in Bloodon 70-69-5163Cmvyxvbtjf (Bld) [Mass/Vol]15.3 g/dL14.0-18.0[facility]burgLaboratory - Chemistry and Chemistry - challengeon 24-24-7485Mkhuzcr [Mass/Vol]3.9 g/dL 3.4-5.0[facility]burgCalcium [Mass/Vol]9.6 mg/dL8.5-10.1 [facility]burgChloride [Moles/Vol]99 mmol/Q23-201OqnbljmynKettering Health MiamisburgCO2 [Moles/Vol]32.9 mmol/LHigh21.0-32.0[facility]amisburgCreatinine [Mass/Vol]2.55 mg/dLHigh0.70-1.30[facility]burgGFR/1.73 sq M.predicted MDRD (S/P/Bld) [Vol rate/Area]30 mL/min/{1.73_m2}Low>=60[facility]burgGlucose [Mass/Vol]117 mg/sXQyki53-607AyfwtojinKettering Health MiamisburgMagnesium [Mass/Vol]2.5 mg/dL High1.8-2.4FTriHealth Good Samaritan HospitalPotassium [Moles/Vol]4.0 mmol/L 3.5-5.1FSt. Mary's Medical Centerodium [Moles/Vol]135 mmol/TAej110-857 [facility]amisburgUrate [Mass/Vol]8.1 mg/dLHigh3.5-7.2FTriHealth Good Samaritan HospitalUrea nitrogen [Mass/Vol]57.0 mg/dLHigh7.0-18.0[facility]amisburgUrea nitrogen/Creatinine [Mass ratio]22.4 mg/mgKettering Health MiamisburgBilirubin Ql (U)NegativeNEGATIVEKettering Health MiamisburgGlucose (U) [Mass/Vol]NegativeNEGATIVEKettering Health MiamisburgKetones Ql (U)NegativeNEGATIVEKettering Health MiamisburgpH (U)6.5 [pH]5.0-9.0St. Vincent Hospitalpecific gravity (U) [Rel density] 1.0151.005-1.025[facility] MiamisburgUrobilinogen Qn (U)2.0 {Caden'U}/dLAbnormal0.2-1.0[facility]burgLaboratory - Specimen informationon 21-18-8086Ljrsoxpduq (U)CLEARCLEARFTriHealth Good Samaritan HospitalColor (U)LT. YELLOWYELLOWKettering Health Miamisburg Laboratory - Urinalysison 67-05-9243Qyaitwxno esterase Test strip Ql (U)Negative NEGATIVEKettering Health MiamisburgNitrite Ql (U)NegativeNEGATIVEKettering Health MiamisburgProtein (U) [Mass/Vol]18.3 mg/dLHigh<=11.9[facility]amisburgProtein Ql (U)NegativeNEG/TRACEKettering Health MiamisburgLeukocytes [#/volume] corrected for nucleated erythrocytes in Blood by Automated counon 53-63-5239HES corrected for nucl RBC Auto (Bld) [#/Vol]8.5 10 3/uL4.0-11.0[facility] HospitalH Auto (RBC) [Entitic mass]on 25-92-6580UPP (RBC) [Entitic mass]30.2 pg25.9-34.0[facility] MiamisburgMCHC Auto (RBC) [Mass/Vol]on 27-38-6306FBWT (RBC) [Mass/Vol]31.8 g/dL 29.9-35.2FTriHealth Good Samaritan HospitalMCV Auto (RBC) [Entitic vol]on 24-98-0947SMC (RBC) [Entitic vol]94.9 lFVhqe11.0-94.0[facility]amisburgMicroalbumin [Mass/volume] in Urineon 48-50-3377Abuhxcf DL <= 20 mg/L (U) [Mass/Vol]mg/dL<=30.0[facility]burgNo Panel Informationon 661097-Bmbrdcq Vitamin D Total29.9 ng/mLK[facility]tering Health Miamisburg Comment on above:<20 ng/mL Vit D csujaqkcb00-<30 ng/mL Vit D ncjdyehhsdip08-860 ng/mL Vit D sufficient>100 ng/mL Potential ToxicityParathyroid Hormone (Intact) 85 pg/fTQwtliqkr58-47LnblvbasbKettering Health MiamisburgComment on above:Performed at: [facility] [place] [id number] Director: New Vega PhD, Phone: [phone] Level3.3 mg/dL2.6-4.7 [facility]burgUrine Occult BloodNegativeNEGATIVEKettering Health MiamisburgUrine Random Xsvdwjcpmx30.57 mg/dL20.00-300.00[facility] MiamisburgPlatelet mean volume Auto (Bld) [Entitic vol]on 67-37-2627Cggypvnd mean volume (Bld) [Entitic vol]9.9 fL9.5-13.5FTriHealth Good Samaritan HospitalPlatelets Auto (Bld) [#/Vol]on 77-85-0749Basecdtip (Bld) [#/Vol]182 10 3/rB790-765SuvkfsmtgKettering Health MiamisburgRBC Auto (Bld) [#/Vol] on 58-87-4509JUL (Bld) [#/Vol]5.07 10 6/uL4.70-6.10St. [facility] Hospitalerum or plasma anion gap determinationon 72-26-2731Tswzy gap [Moles/Vol] 7.1 mmol/LFTriHealth Good Samaritan HospitalUrine microalbumin/creatinine mass ratioon 21-63-7327Taheljs/Creatinine DL <= 20 mg/L (U) [Mass ratio]13.4 mg/g 0.0-29.9[facility] MiamisburgComment on above:NO MICROALBUMINURIA 0- 29 MG/GCLINICAL MICROALBUMINURIA 30-300 MG/GMACROALBUMINURIA >300 MG/GUrine protein/creatinine ratioon 89-21-3930Ahbvrco/Creatinine (U) [Ratio]0.19[facility] MiamisburgBasophils Auto (Bld) [#/Vol]on 67-54-5757Jfqzeuycf (Bld) [#/Vol]0.1 10 3/uL0.0-0.1FTriHealth Good Samaritan HospitalBasophils/100 WBC Auto (Bld)on 68-51-2274Mhrgetbvf/100 WBC (Bld)0.8 %0.2-2.0[facility]burgCholesterol in LDL Calc [Mass/Vol]on 22-75-9014Zybfddpromq in LDL [Mass/Vol]35.0 mg/dLKettering Health MiamisburgComment on above:<100 mg/dl XHRRXHB730-335 mg/dl NEAR OR ABOVE QROHSFO940-981 mg/dl BORDERLINE WBMB807-024 mg/dl HIGH>190 mg/dl VERY HIGHCholesterol in VLDL Calc [Mass/Vol]on 04-30-2024 Cholesterol in VLDL [Mass/Vol]8.0 mg/dLKettering Health Miamisburg Eosinophils/100 WBC Auto (Bld)on 46-45-2258Ypgqubomnre/100 WBC (Bld)8.4 %High 0.9-7.0[facility] MiamisburgErythrocyte distribution width Auto (RBC) [Ratio]on 44-72-8648Lnkryembdkh distribution width (RBC) [Ratio]15.3 %High 11.0-15.0[facility]burgEstimated glomerular filtration rate (GFR) non- Americanon 08-25-0299RVU/1.73 sq M.predicted among non-blacks MDRD (S/P/Bld) [Vol rate/Area]26 mL/min/{1.73_m2}Low>=60[facility]amisburgGlobulin Calc (S) [Mass/Vol]on 60-48-4106Cnpnxyyn (S) [Mass/Vol] 3.6 g/dLKettering Health MiamisburgHematocrit Auto (Bld) [Volume fraction] on 60-33-8889Fkbbnkagxe (Bld) [Volume fraction]45.6 %42.0-54.0[facility]amisburgHemoglobin [Mass/volume] in Bloodon 56-28-9839Xtfyaurqdf (Bld) [Mass/Vol]14.7 g/dL14.0-18.0[facility] Mi[facility]burgLaboratory - Chemistry and Chemistry - challengeon 57-46-7128Qzngcuo [Mass/Vol]3.6 g/dL 3.4-5.0[facility]amisburgALP [Catalytic activity/Vol]110 U/L 46-116[facility]amisburgALT [Catalytic activity/Vol]19 U/L16-63 [facility]burgAST [Catalytic activity/Vol]19 U/L15-37 [facility]amisburgBilirubin [Mass/Vol]1.2 mg/dLHigh0.2-1.0 [facility]burgCalcium [Mass/Vol]9.2 mg/dL8.5-10.1FTriHealth Good Samaritan HospitalChloride [Moles/Vol]100 mmol/D92-288NilthabebKettering Health MiamisburgCholesterol [Mass/Vol]101 mg/dL<=200[facility]amisburgCholesterol in HDL [Mass/Vol]58 mg/yN07-67WmrtxfqssKettering Health MiamisburgComment on above:> or =60 mg/dl - LOW CARDIOVASCULAR RISK<40 mg/dl - HIGH CARDIOVASCULAR RISKCO2 [Moles/Vol]27.5 mmol/L21.0-32.0[facility] MiamisburgCreatinine [Mass/Vol]2.45 mg/dLHigh0.70-1.30[facility]burgFree T4 [Mass/Vol]1.26 ng/dL0.76-1.46[facility] GFR/1.73 sq M.predicted MDRD (S/P/Bld) [Vol rate/Area]32 mL/min/{1.73_m2}Low>=60 [facility]burgGlucose [Mass/Vol]122 mg/uDCusj89-531ChhivusgmKettering Health MiamisburgPotassium [Moles/Vol]4.1 mmol/L3.5-5.1FT[facility] HospitalProtein [Mass/Vol]7.2 g/dL6.4-8.2[facility] Sodium [Moles/Vol]137 mmol/V262-362BbhpvjfflKettering Health MiamisburgTriglyceride [Mass/Vol]40 mg/dL<=150[facility]burgTSH Qn2.710 m[IU]/L 0.358-3.740[facility]amisburgUrea nitrogen [Mass/Vol]53.0 mg/dL High7.0-18.0[facility]burgUrea nitrogen/Creatinine [Mass ratio]21.6 mg/mgKettering Health MiamisburgLaboratory - Hematology and Cell countson [id number] granulocytes/100 WBC (Bld)0.6 %High0.0-0.5 [facility]burgLeukocytes [#/volume] corrected for nucleated erythrocytes in Blood by Automated counon [id number] corrected for nucl RBC Auto (Bld) [#/Vol]7.2 10 3/uL4.0-11.0[facility] Lymphocytes Auto (Bld) [#/Vol]on 99-59-1613Oahdtovfron (Bld) [#/Vol]0.7 10 3/uL Low1.2-3.8[facility]burgLymphocytes/100 WBC Auto (Bld)on 16-54-5354Kzyxidnbyfk/100 WBC (Bld)9.7 %Low20.5-60.0[facility] HospitalH Auto (RBC) [Entitic mass]on 76-45-3389EJH (RBC) [Entitic mass]30.0 pg 25.9-34.0[facility]burgMCHC Auto (RBC) [Mass/Vol]on 73-61-4772LNUQ (RBC) [Mass/Vol]32.2 g/dL29.9-35.2FTriHealth Good Samaritan HospitalMCV Auto (RBC) [Entitic vol]on 35-65-9247KUT (RBC) [Entitic vol]93.1 fL 80.0-94.0[facility] Mi[facility]burgMonocytes Auto (Bld) [#/Vol]on 78-61-7947Vmktriatb (Bld) [#/Vol]0.6 10 3/uL0.3-0.8[facility] [place]burgMonocytes/100 WBC Auto (Bld)on 41-15-4029Vazkaeflz/100 WBC (Bld)8.2 % 1.7-12.0[facility] [place]amisburgNeutrophils Auto (Bld) [#/Vol]on 98-17-0207Ebjhkxwygyb (Bld) [#/Vol]5.2 10 3/uL1.4-6.5FTriHealth Good Samaritan HospitalNeutrophils/100 WBC Auto (Bld)on 93-92-3664Xyjhopzdwzy/100 WBC (Bld)72.3 % 43.0-75.0[facility] [place]burgNo Panel Informationon 04-30-2024 Eosinophils # (Auto)0.6 10 3/uL0.0-0.7FTriHealth Good Samaritan HospitalImmature Granulocyte # (Auto)0.04 10 3/uLHigh0.00-0.03[facility] [place] Platelet mean volume Auto (Bld) [Entitic vol]on 21-79-3033Tgalteuo mean volume (Bld) [Entitic vol]10.7 fL9.5-13.5FTriHealth Good Samaritan HospitalPlatelets Auto (Bld) [#/Vol]on 65-80-5440Zuunuyuqg (Bld) [#/Vol]171 10 3/wS854-453 [facility] [place]burgRBC Auto (Bld) [#/Vol]on 20-44-0421XIR (Bld) [#/Vol]4.90 10 6/uL4.70-6.10[facility] Hospitalerum or plasma albumin/globulin mass ratioon 53-45-1922Jemeycs/Globulin [Mass ratio]1.0 {ratio} [facility] Hospitalerum or plasma anion gap determinationon 56-95-4542Aylrp gap [Moles/Vol]13.6 mmol/LFSt. Mary's Medical Centererum or plasma total cholesterol/high density lipoprotein (HDL) cholesterol mass rat on 94-10-9737Ccrhsqcclik.total/Cholesterol in HDL [Mass ratio]1.7 {ratio} [facility] [place]burgComment on above:3.3 - 4.4 LOW RISK4.4 - 7.1 AVERAGE RISK7.1 - 11.0 MODERATE RISK>11.0 HIGH RISKErythrocyte distribution width Auto (RBC) [Ratio]on 79-69-1391Rkxvavosqsr distribution width (RBC) [Ratio]15.6 %11.0-15.0[facility] [place]amisburgEstimated glomerular filtration rate (GFR) non- Americanon 35-89-1082FQL/1.73 sq M.predicted among non-blacks MDRD (S/P/Bld) [Vol rate/Area]22 mL/min/{1.73_m2}>=60[facility] [place]amisburgGlobulin Calc (S) [Mass/Vol]on 18-36-7289Uwjllxwf (S) [Mass/Vol]4.2 g/dLKettering Health MiamisburgHematocrit Auto (Bld) [Volume fraction]on 33-94-4726Ahmsatknej (Bld) [Volume fraction]46.1 %42.0-54.0 [facility] [place]burgHemoglobin [Mass/volume] in Bloodon 12-17-2023 Hemoglobin (Bld) [Mass/Vol]14.9 g/dL14.0-18.0[facility] [place] Laboratory - Chemistry and Chemistry - challengeon 08-16-2413Ynctght [Mass/Vol] 3.9 g/dL3.4-5.0[facility] [place]burgALP [Catalytic activity/Vol]131 U/T08-697BujxvdvujKettering Health MiamisburgALT [Catalytic activity/Vol]21 U/L 16-63[facility] [place]burgAST [Catalytic activity/Vol]20 U/L15-37 [facility] [place]amisburgBilirubin [Mass/Vol]1.1 mg/dL0.2-1.0[facility] [place]amisburgCalcium [Mass/Vol]9.5 mg/dL8.5-10.1FTriHealth Good Samaritan HospitalChloride [Moles/Vol]100 mmol/O77-223ScgdgqicvKettering Health MiamisburgCO2 [Moles/Vol]26.5 mmol/L21.0-32.0[facility] [place] Creatinine [Mass/Vol]2.90 mg/dL0.70-1.30[facility] [place] GFR/1.73 sq M.predicted MDRD (S/P/Bld) [Vol rate/Area]26 mL/min/{1.73_m2}>=60 [facility] [place]amisburgGlucose [Mass/Vol]112 mg/gC48-512UdmvohneeKettering Health MiamisburgMagnesium [Mass/Vol]2.9 mg/dL1.8-2.4FTriHealth Good Samaritan HospitalPotassium [Moles/Vol]4.4 mmol/L3.5-5.1FTri[facility] Samaritan HospitalProtein [Mass/Vol]8.1 g/dL6.4-8.2FSt. Mary's Medical Centerodium [Moles/Vol]139 mmol/V194-658EnxsiaqumKettering Health MiamisburgUrate [Mass/Vol]7.8 mg/dL3.5-7.2FTriHealth Good Samaritan HospitalUrea nitrogen [Mass/Vol]64.0 mg/dL 7.0-18.0[facility] [place]amisburgUrea nitrogen/Creatinine [Mass ratio] 22.1 mg/mgKettering Health MiamisburgLeukocytes [#/volume] corrected for nucleated erythrocytes in Blood by Automated counon 27-79-3051JYE corrected for nucl RBC Auto (Bld) [#/Vol]7.3 10 3/uL4.0-11.0[facility] [place] MCH Auto (RBC) [Entitic mass]on 60-34-3003TLZ (RBC) [Entitic mass]29.6 pg 25.9-34.0[facility] [place]amisburgMCHC Auto (RBC) [Mass/Vol]on 43-26-5439OSIB (RBC) [Mass/Vol]32.3 g/dL29.9-35.2FTriHealth Good Samaritan HospitalMCV Auto (RBC) [Entitic vol]on 94-91-3873PQR (RBC) [Entitic vol]91.5 fL 80.0-94.0[facility] [place]burgNo Panel Informationon 73-94-772559- Hydroxy Vitamin D Total27.7 ng/mLKettering Health MiamisburgComment on above:<20 ng/mL Vit D fgaiaoizy20-<30 ng/mL Vit D tvxyqfmggzui93-495 ng/mL Vit D sufficient>100 ng/mL Potential ToxicityMiscellaneous TestCOMMENT.[facility] MiamisburgComment on above:Test Ordered: [id number] Prot+CreatU (Random)Creatinine, Urine 15.1 mg/dL CB Reference Range: Not Estab. Protein,Total,Urine <4.0 mg/dL CB Reference Range: Not Estab.Verified by repeat analysisProtein/Creat Ratio Comment [A ] CB Units of Measure: mg/g creat Reference Range: 0-200This result is below the assay's limit of quantitationindicating a dilute specimen, potentially due to diurnalvariation. Consider recollection at a time likely toprovide a more concentrated urine.Performed at: [facility] [employer] [id number] Director: New Vega PhD, Phone: [phone] Hormone (Intact) 140 pg/tE44-34OzqejhntlKettering Health MiamisburgComment on above:Performed at: [facility] [employer] [id number] Director: New Vega PhD, Phone: [phone] Level3.7 mg/dL2.6-4.7FTriHealth Good Samaritan HospitalPlatelet mean volume Auto (Bld) [Entitic vol]on 61-80-8975Hgmrtekn mean volume (Bld) [Entitic vol]10.8 fL9.5-13.5FTriHealth Good Samaritan HospitalPlatelets Auto (Bld) [#/Vol]on 03-18-5440Ongongizl (Bld) [#/Vol]195 10 3/eR125-656QothavvbbKettering Health MiamisburgRBC Auto (Bld) [#/Vol] on 02-47-1792DYQ (Bld) [#/Vol]5.04 10 6/uL4.70-6.10St. [facility] Hospitalerum or plasma albumin/globulin mass ratioon 57-21-8815Gstqkjc/Globulin [Mass ratio]0.9 {ratio}[facility] Hospitalerum or plasma anion gap determinationon 46-74-7071Womgf gap [Moles/Vol]16.9 mmol/LFTriHealth Good Samaritan HospitalPTH INTACTon 99-68-3931DBY, Nrfkgn58 pg/mLCritically riit14-51XhzCleveland Clinic FoundationComment on above:Performed By: #### PTHINT ####[facility] Gmusdceuaz[address] [place], [place] [address]DrLatoya Anthony HEMOGRAM AND PLATELon 28-09-2089Nmaqcxnxfc (Bld) [Volume fraction]43.4 %Normal 42.0-54.0The [facility] HospitalComment on above:Performed By: #### HH ####[facility] T[address]reagb[address] [place] [address]Dr. Y angie AnthonyHemoglobin (Bld) [Mass/Vol]14.1 g/rMNtqeov35.0-18.0The [facility]ton HospitalComment on above:Performed By: #### HH ####[facility] Rctphrznib12[address] [place], [place] [address]Dr. Elba AnthonyH (RBC) [Entitic mass]28.2 yoWjgszi03.9-34.0The [facility] HospitalComment on above: Performed By: #### HH ####[facility] Spdnnimcyk19[address] [place], [place] [address]Dr. Elba AnthonyMCHC (RBC) [Mass/Vol]32.5 g/dLNormal 29.9-35.2The [facility] HospitalComment on above:Performed By: #### HH ####[facility] Hmtsenprxt[address] [place], [place] [address]Dr. Y angie AnthonyMCV (RBC) [Entitic vol]86.8 oOVsewfs66.0-94.0The [facility] Comment on above:Performed By: #### HH ####[facility] Imxpkjvxqf[address] [place], [place] [address]Dr. Nereydasiobhan XhyylYLN838 103/huWufnqj641-790Zum [facility] HospitalComment on above:Performed By: #### HH ####[facility] Jifdybxlwk[address] [place], [place] [address]Dr. Elba AnthonyRBC5.00 106/ul Normal4.70-6.10The [facility] HospitalComment on above:Performed By: #### HH ####[facility] Orrnagjgvr8[address] [place], [place] [address]Dr. Y angie RajWBC7.2 103/ulNormal4.0-11.0The [facility] HospitalComment on above: Performed By: #### HH ####[facility] S[address]ptftqgs[address] [place] [address]Dr. Elba AnthonyMAGNESIUMon 84-70-7505Gnmuzaips [Mass/Vol]2.6 mg/dLCritically high1.8-2.4The [facility] HospitalComment on above: Performed By: #### CMP, URIC, PHOS, MG ####[facility] Kugsroyxkz[address] [place] [address]Dr. Elba AnthonyPHOSPHORUSon 05-32-7858Myfyivnot [Mass/Vol]3.9 mg/dLNormal2.6-4.7The [facility] HospitalComment on above:Performed By: #### CMP, URIC, PHOS, MG ####[facility] Etsbvnjurr[address] [place] [address]Dr. Elba ChangPROF 14(COMP METB)on 91-36-5522Exawyqq [Mass/Vol]4.0 g/dLNormal3.4-5.0The [facility] HospitalComment on above:Performed By: #### CMP, URIC, PHOS, MG ####[facility] Mdbtpgsvhl[address] [place], [place] [address]Dr. Elba ChangAlbumin/Globulin [Mass ratio]0.9 {ratio}NormalThe [facility] HospitalComment on above:Performed By: #### CMP, URIC, PHOS, MG ####[facility] Oirxzqewvi[address] [place] [address]Dr. Nereydalan ChangALP [Catalytic activity/Vol]159 U/LCritically xzwg77-188Ife [facility] HospitalComment on above:Performed By: #### CMP, URIC, PHOS, MG ####[facility] Jobgvlplqb[address] [place] [address]Dr. Yilan ChangALT [Catalytic activity/Vol]33 U/APhfgns49-20Zye [facility] Comment on above:Performed By: #### CMP, URIC, PHOS, MG ####[facility] Dgqibltfzx[address] [place] [address]Dr. Nereydalan ChangAnion gap [Moles/Vol]15.2 mmol/LNormalThe [facility] HospitalComment on above:Performed By: #### CMP, URIC, PHOS, MG ####[facility] Ljtgpjwcca[address] [place] [address]Dr. Yilan ChangAST [Catalytic activity/Vol]27 U/L Lghxrn01-23Vlc [facility] HospitalComment on above:Performed By: #### CMP, URIC, PHOS, MG ####[facility] Fpubeusmpw[address] [place] [address]Dr. Yilan ChangBilirubin [Mass/Vol]0.9 mg/dLNormal0.2-1.0The [facility] HospitalComment on above:Performed By: #### CMP, URIC, PHOS, MG ####[facility] Huzafvebsb[address] [place], [place] [address]Dr. Yilan Anthony Calcium [Mass/Vol]9.8 mg/dLNormal8.5-10.1The [facility] HospitalComment on above: Performed By: #### CMP, URIC, PHOS, MG ####[facility] Lxoxkmwksc[address] [place], [place] [address]Dr. Yilan ChangChloride [Moles/Vol]102 mmol/L Amndfn26-887Hdj [facility] HospitalComment on above:Performed By: #### CMP, URIC, PHOS, MG ####[facility] Nsmcftkwfg[address] [place] [address]Dr. Yilan ChangCO2 [Moles/Vol]30.5 mmol/XLwdklq12.0-32.0The [facility] HospitalComment on above:Performed By: #### CMP, URIC, PHOS, MG ####[facility] Pfvazfljoq[address] [place] [address]Dr. Yilan Anthony Creatinine [Mass/Vol]2.63 mg/dLCritically high0.70-1.30The [facility] Comment on above:Performed By: #### CMP, URIC, PHOS, MG ####[facility] Emgpkgwpoe[address] [place] [address]Dr. Yilan ChangEGFR-AF CLCRKMKG08 mL/min/1.95u0Mqlbnjndqk low>=60The [facility] HospitalComment on above: Performed By: #### CMP, URIC, PHOS, MG ####[facility] Gfjdjmogaj84[address] [place] [address]Dr. Yilan ChangEGFR-NON AF UFEZBKNK41 mL/min/1.70h8Rdsowwarlr low>=60The [facility] HospitalComment on above:Performed By: #### CMP, URIC, PHOS, MG ####[facility] Bxrutplpft[address] [place] [address]Dr. Yilan ChangGlobulin (S) [Mass/Vol]4.5 g/dLNormal The [facility] HospitalComment on above:Performed By: #### CMP, URIC, PHOS, MG ####[facility] Unjzqpixoi[address] [place] [address]Dr. Yilan ChangGlucose [Mass/Vol]122 mg/dLCritically uone76-531Kwn [facility] Comment on above:Performed By: #### CMP, URIC, PHOS, MG ####[facility] Ihqdxsxwvn32[address] [place] [address]Dr. Yilan ChangPotassium [Moles/Vol]4.7 mmol/LNormal3.5-5.1The [facility] HospitalComment on above: Performed By: #### CMP, URIC, PHOS, MG ####[facility] Jdpnlfbyvk4[address] [place] [address]Dr. Yilan ChangProtein [Mass/Vol]8.5 g/dL Critically high6.4-8.2The [facility] HospitalComment on above:Performed By: #### CMP, URIC, PHOS, MG ####[facility] Nvnfpxevxz73[address] [place] [address]Dr. Yilan ChangSodium [Moles/Vol]143 mmol/LNormal 136-145The [facility] HospitalComment on above:Performed By: #### CMP, URIC, PHOS, MG ####[facility] Vegfqxlxle67[address] [place] [address]Dr. Yilan ChangUrea nitrogen [Mass/Vol]59.0 mg/dLCritically high7.0-18.0The [facility] HospitalComment on above:Performed By: #### CMP, URIC, PHOS, MG ####[facility] Ptkrjualam32[address] [place] [address]Dr. Yilan ChangUrea nitrogen/Creatinine [Mass ratio]22.4 mg/mgNoalThKettering Health DaytonComment on above:Performed By: #### CMP, URIC, PHOS, MG ####[facility] Etmnycogdl67[address] [place] [address]Dr. Elba AnthonyUA RANDOMon 53-54-6313Nlzwkiniu Ql (U)NegativeNormalNEGATIVECleveland Clinic Foundation Comment on above:Performed By: #### UA ####[facility] Awjedqvwan[address] [place], [place] [address]Dr. Yilan ChangClarity (U)CLEARNormalCLEARCleveland Clinic FoundationComment on above:Performed By: #### UA ####[facility] Ccvcjhybiw9[address] [place], [place] [address]Dr. Elba ChangColor (U)LT. YELLOWNormalYELLOWCleveland Clinic FoundationComment on above:Performed By: #### UA ####[facility] Eqjcvbufar5[address] [place], [place] [address]Dr. Y angie ChangGlucose Ql (U)NegativeNormalNEGATIVECleveland Clinic FoundationComment on above:Performed By: #### UA ####[facility] Geylbhqaby33[address] [place], [place] [address]Dr. Nereydalan ChangHemoglobin Ql (U)NegativeNormalNEGATIVE [facility] FoundationComment on above:Performed By: #### UA ####[facility] Ijiuakcnhd13[address] [place], [place] [address]Dr. Yilan Anthony Ketones Ql (U)NegativeNormalNEGATIVECleveland Clinic FoundationComment on above: Performed By: #### UA ####[facility] Bwmhgrndgs95[address] [place], [place] [address]Dr. Nereydalan ChangLEUKOCYTESNegativeNormalNEGATIVECleveland Clinic FoundationComment on above:Performed By: #### UA ####[facility] Kynyngnuom[address] [place], [place] [address]Dr. Elba AnthonyNitrite Ql (U) NegativeNormalNEGATIVEThe [facility] HospitalComment on above:Performed By: #### UA ####[facility] Sujsqjvzie83[address] [place] [address]Dr. Elba AnthonypH (U)7.0 [pH]Normal5-9The [facility] HospitalComment on above: Performed By: #### UA ####[facility] Nvwqwfqjto0[address] [place] [address]Dr. Elba AnthonySPEC GRAVITY<=1.005Abnormal 1.005-<=1.025The [facility] HospitalComment on above:Performed By: #### UA ####[facility] Ooagvrpuku[address] [place], [place] [address]Dr. Y angie AnthonyUA PROTEINTRACENormalNEGATIVE/ TRACEThe [facility] HospitalComment on above:Performed By: #### UA ####[facility] Glzlekndwd1987[address] [place], [place] [address]Dr. Elba AnthonyUrobilinogen Qn (U)2.0 {Caden'U}/dL Abnormal0.2 - 1.0The [facility] HospitalComment on above:Performed By: #### UA ####[facility] Vjfhydmdkd8[address] [place], [place] [address]Dr. Y angie AnthonyURIC ACID SERUMon 04-31-2255Cmzzl [Mass/Vol]9.0 mg/dLCritically high 3.5-7.2The [facility] HospitalComment on above:Performed By: #### CMP, URIC, PHOS, MG ####[facility] Uocrwccznq11[address] [place] [address]Dr. Elba AnthonyURINE T PROTEIN CREAT RATIOon 91-67-8353Hgeemzg (U) [Mass/Vol]26.9 mg/dLCritically high<=12.0The [facility] HospitalComment on above:Performed By: #### URTPCR ####[facility] Gikyvhdvwk[address] [place], [place] [address]Dr. Elba AnthonyUR PROT CREAT RAT0.33NormalThe [facility] HospitalComment on above:Performed By: #### URTPCR ####[facility] Nyjknqltnl[address] [place], [place] [address]Dr. Elba AnthonyURINE CREAT82.74 mg/dLNormal 20.00-300.00The [facility] HospitalComment on above:Performed By: #### URTPCR ####[facility] Xyqgjuypmh[address] [place], [place] [address]Dr. Nereydalan ChangVITAMIN D 25 OHon 54-40-0120RRK D 25-OH14.7 ng/mLNormalThe [facility] HospitalComment on above:Performed By: #### VITAD ####[facility] Fokggphnay3[address] [place], [place] [address]Dr. Yilan ChangVIT D RANGES SEE The MetroHealth SystemComment on above:Result Comment: <20 ng/mL Vit D deficient 20 - <30 ng/mL Vit D insufficient 30 - 100 ng/mL Vit D sufficient >100 ng/mL Potential ToxicityPerformed By: #### VITAD ####[facility] Xjydjfnkex01[address] [place], [place] [address]Dr. Elba ChangUS KIDNEYSon 67-80-7226HC KIDNEYSProMedica Memorial HospitalPROF CHEM 8 (BAS METB) on 64-06-4507Ekakf gap [Moles/Vol]11.1 mmol/LNormalCleveland Clinic FoundationComment on above:Performed By: #### BMP ####[facility] Sbvaaixixq09[address] [place], [place] [address]Dr.Elba ChangCalcium [Mass/Vol]9.0 mg/dLNormal 8.5-10.1The [facility] HospitalComment on above:Performed By: #### BMP ####[facility] Uvkziedeak3[address] [place], [place] [address]Dr. Yilan ChangChloride [Moles/Vol]99 mmol/JEiusbg95-086Qzq [facility] HospitalComment on above:Performed By: #### BMP ####[facility] Tqyvppucnm[address] [place], [place] [address]Dr.Yilan ChangCO2 [Moles/Vol]30.3 mmol/LNormal 21.0-32.0The [facility] HospitalComment on above:Performed By: #### BMP ####[facility] Vnljhsicaj7869[address] [place], [place] [address]Dr. Yilan ChangCreatinine [Mass/Vol]2.43 mg/dLCritically high0.70-1.30The [facility] HospitalComment on above:Performed By: #### BMP ####[facility] Qndsedrhkx8[address] [place], [place] [address]Dr.Yilan ChangEGFR-AF LQUFBZAR15 mL/min/1.76p0Ryondqsowt low>=60The [facility] HospitalComment on above: Performed By: #### BMP ####[facility] Jxzbutfbki1474[address] [place], [place] [address]Dr.Nereydalan ChangEGFR-NON AF ASPDERRY21 mL/min/1.73m2 Critically low>=60The [facility] HospitalComment on above:Performed By: #### BMP ####[facility] Wmeizpesku7147[address] [place], [place] [address]Dr. Nereydalan ChangGlucose [Mass/Vol]142 mg/dLCritically rafi38-921Zbd [facility] Comment on above:Performed By: #### BMP ####[facility] Saavlkviek5167[address] [place], [place] [address]Dr.Nereydalan ChangPotassium [Moles/Vol]4.4 mmol/LNormal3.5-5.1The [facility] HospitalComment on above:Performed By: #### BMP ####[facility] Myrieyrvjb750[address] [place], [place] [address]Dr. Yilan ChangSodium [Moles/Vol]136 mmol/LVjhnak028-284Gph [facility] HospitalComment on above:Performed By: #### BMP ####[facility] Bpfmqlyhtj424[address] [place], [place] [address]Dr.Yilan ChangUrea nitrogen [Mass/Vol]60.0 mg/dL Critically high7.0-18.0The [facility] HospitalComment on above:Performed By: #### BMP ####[facility] Lmugkqjryo37[address] [place], [place] [address]Dr. Yilan ChangUrea nitrogen/Creatinine [Mass ratio]24.7 mg/mgNormalThe [facility] HospitalComment on above:Performed By: #### BMP ####[facility] Diifkfrwtp9946[address] [place], [place] [address]Dr.Nereydasiobhan ChangCBC AUTO DIFFon 91-87-8418EKUP #0.1 103/ulNormal0.0-0.1The [facility] HospitalComment on above: Performed By: #### CBC ####[facility] Vejsdbfnhv4842[address] [place], [place] [address]Dr.Nereydasiobhan ChangBasophils/100 WBC (Bld)0.8 %Normal 0.2-2.0The [facility] HospitalComment on above:Performed By: #### CBC ####[facility] Uurrkjkshd465[address] [place], [place] [address]Dr.Yilan ChangEO # 0.9 103/ulCritically high0.0-0.7The [facility] HospitalComment on above:Performed By: #### CBC ####[facility] Djvnycybkc25[address] [place], [place] [address]Dr.Nereydasiobhan ChangEosinophils/100 WBC (Bld)13.7 %Critically high0.9-7.0The [facility] HospitalComment on above:Performed By: #### CBC ####[facility] Bvuabykftz5[address] [place], [place] [address]Dr.Elba ChangErythrocyte distribution width (RBC) [Ratio]20.8 %Critically high11.0-15.0The [facility] HospitalComment on above:Performed By: #### CBC ####[facility] Baxxbwzvju12[address] [place], [place] [address]Dr.Nereydasiobhan ChangHematocrit (Bld) [Volume fraction]35.3 %Critically low42.0-54.0The [facility] HospitalComment on above:Performed By: #### CBC ####[facility] Fqapouskgp89[address] [place], [place] [address]Dr.Elba ChangHemoglobin (Bld) [Mass/Vol]11.5 g/dL Critically low14.0-18.0The [facility] HospitalComment on above:Performed By: #### CBC ####[facility] Erkhzfcjex[address] [place] [address]Dr. Elba AnthonyIG #0.04 10e3/ulCritically high0.00-0.03The [facility] HospitalComment on above:Performed By: #### CBC ####[facility] Fvqhbbkxuw84[address] [place] [address]Dr.Elba RajIG %0.6 %Critically high0.0-0.5The [facility] HospitalComment on above:Performed By: #### CBC ####[facility] Pocggmfkeh80[address] [place] [address]Dr.Nereydasiobhan RajLYMPH #1.1 103/ulCritically low1.2-3.8The [facility] HospitalComment on above:Performed By: #### CBC ####[facility] Xflyurlqnj8[address] [place], [place] [address]Dr.Elba AnthonyLymphocytes/100 WBC (Bld)17.2 %Critically low20.5-60.0The [facility] HospitalComment on above:Performed By: #### CBC ####[facility] Rflhcpnccg75[address] [place], [place] [address]Dr.Elba AnthonyMANUAL DIFF REQ NONormalThe [facility] HospitalComment on above:Performed By: #### CBC ####[facility] Qxhtrvxlxn9[address] [place], [place] [address]Dr. Elba AnthonyM[facility] (RBC) [Entitic mass]27.9 koShiean88.9-34.0The [facility] Comment on above:Performed By: #### CBC ####[facility] Elwuilevxz5[address] [place], [place] [address]Dr.Elba AnthonyHC (RBC) [Mass/Vol]32.6 g/dL Ipilos38.9-35.2The [facility] HospitalComment on above:Performed By: #### CBC ####[facility] Ctmcmrzknj[address] [place], [place] [address]Dr. Elba AnthonyV (RBC) [Entitic vol]85.7 kRAxykuw10.0-94.0The [facility] Comment on above:Performed By: #### CBC ####[facility] Ktftqwwmcx65[address] [place], [place] [address]Dr.Elba AnthonyMONO #0.8 103/ulNormal0.3-0.8 The [facility] HospitalComment on above:Performed By: #### CBC ####[facility] Ikgspwmpzs4023[address] [place], [place] [address]Dr.Elba Anthony Monocytes/100 WBC (Bld)13.0 %Critically high1.7-12.0The [facility] HospitalComment on above:Performed By: #### CBC ####[facility] Lnxvyijugk[address] [place], [place] [address]Dr.Elba AnthonyNEUT #3.4 103/ulNormal1.4-6.5The [facility] HospitalComment on above:Performed By: #### CBC ####[facility] Cknrqwarkz5232[address] [place], [place] [address]Dr.Elba AnthonyNeutrophils/100 WBC (Bld)54.7 %Qlinzc90.0-75.0The [facility] HospitalComment on above:Performed By: #### CBC ####[facility] Keeybhfvoa00[address] [place], [place] [address]Dr.Elba AnthonyPlatelet mean volume (Bld) [Entitic vol]9.5 fLNormal9.5-13.5 [facility] FoundationComment on above:Performed By: #### CBC ####[facility] Wibplmzift7535[address] [place], [place] [address]Dr.Elba WhlpjILM989 103/fuQxblco714-882Tid [facility] HospitalComment on above:Performed By: #### CBC ####[facility] Riwedhurxm8199[address] [place], [place] [address]Dr. Nereydasiobhan RajRBC4.12 106/ulCritically low4.70-6.10The [facility] HospitalComment on above:Performed By: #### CBC ####[facility] Hykvqhlutr8[address] [place], [place] [address]Dr.Nereydalan ChangWBC6.2 103/ulNormal4.0-11.0The [facility] HospitalComment on above:Performed By: #### CBC ####[facility] Fihusrweta12[address] [place], [place] [address]Dr.Yilan ChangPROF CHEM 8 (BAS METB)on 49-89-9421Jtlmi gap [Moles/Vol]10.9 mmol/LNormalThe [facility] HospitalComment on above:Performed By: #### BMP ####[facility] Grmknvkrfo2562[address] [place], [place] [address]Dr.Yilan ChangCalcium [Mass/Vol]8.9 mg/dLNormal8.5-10.1The [facility] HospitalComment on above:Performed By: #### BMP ####[facility] Kkburaxbsd9588[address] [place], [place] [address]Dr.Yilan ChangChloride [Moles/Vol]103 mmol/GXdvlem07-173Brk [facility] HospitalComment on above:Performed By: #### BMP ####[facility] Sbdaqelffu034[address] [place], [place] [address]Dr.Yilan ChangCO2 [Moles/Vol] 31.0 mmol/VLvsfrj63.0-32.0The [facility] HospitalComment on above:Performed By: #### BMP ####[facility] Iswbybxzxt[address] [place], [place] [address]Dr.Yilan ChangCreatinine [Mass/Vol]2.18 mg/dLCritically high0.70-1.30The [facility] HospitalComment on above:Performed By: #### BMP ####[facility] Bpwdlmozws743[address] [place], [place] [address]Dr.Yilan ChangEGFR-AF CBFPDOTF51 mL/min/1.28g0Nnvvbgwmlx low>=60The [facility] HospitalComment on above: Performed By: #### BMP ####[facility] Abkbraolyf129[address] [place], [place] [address]Dr.Yilan ChangEGFR-NON AF IAVTWAAH33 mL/min/1.73m2 Critically low>=60The [facility] HospitalComment on above:Performed By: #### BMP ####[facility] Eskyiqcbfl[address] [place] [address]Dr. Elba AnthonyGlucose [Mass/Vol]99 mg/iKStzbdk96-965Rpr [facility] HospitalComment on above:Performed By: #### BMP ####[facility] Jgiwlkqrvr593[address] [place], [place] [address]Dr.Elba AnthonyPotassium [Moles/Vol]3.9 mmol/LNormal 3.5-5.1The [facility] HospitalComment on above:Performed By: #### BMP ####[facility] Yqahoigsov3167[address] [place], [place] [address]Dr.Elba Anthony Sodium [Moles/Vol]141 mmol/GJunfjg071-422Qih [facility] HospitalComment on above: Performed By: #### BMP ####[facility] Ifkqxulzro699[address] [place], [place] [address]Dr.Elba ChangUrea nitrogen [Mass/Vol]40.0 mg/dL Critically high7.0-18.0The [facility] HospitalComment on above:Performed By: #### BMP ####[facility] Zefwjhkkan260[address] [place], [place] [address]Dr. Elba ChangUrea nitrogen/Creatinine [Mass ratio]18.3 mg/mgNormalThe [facility] HospitalComment on above:Performed By: #### BMP ####[facility] Ipowpnrmin8488[address] [place], [place] [address]Dr.Elba ChangXR CHEST 2 Von 17-06-2896BF CHEST 2 VNormalCleveland Clinic FoundationBNAurora Medical Center Osh[facility]osh 61-35-3736Cjzjgxexfsl peptide B (Bld) [Mass/Vol]2542.0 pg/mLCritically high<=900.0The [facility] HospitalComment on above:Performed By: #### HSTROPN, BNP, CMP ####[facility] Wktnvkomgj5[address] [place], [place] [address]Dr. Elba Anthony CARDIAC FADY 3-6on 50-07-6106OR [Catalytic activity/Vol]40 U/UNsiuar20-670Bcz [facility] HospitalComment on above:Performed By: #### CMREP ####[facility] Tmbmcfwges8411[address] [place], [place] [address]Dr. Elba Mike.MB [Mass/Vol]0.92 ng/mLNormal<=3.60The [facility] HospitalComment on above:Performed By: #### CMREP ####[facility] Dbqowqseis[address] [place] [address]Dr. Elba FosterTROP49.6 pg/mLNormal4.0-76.1The [facility] Comment on above:Result Comment: CUT-OFF POINTS HAVE BEEN ESTABLISHED BASED ON THE FOURTH UNIVERSAL DEFINITIONS OF MYOCARDIALINFARCTION. THE UPPER REFERENCE LIMIT (URL) OF TROPONIN, DEFINED THE 99TH PERCENTILE OFcTnI DISTRIBUTION IN A REFERENCE POPULATION, HAS BEEN CONFIRMED THE DECISION THRESHOLDFOR DE DIAGNO SIS.Performed By: #### CMREP ####[facility] Cgfvlwcycn[address] [place] [address]. Nereydasiobhan Mike [Catalytic activity/Vol]39 U/LNormal 39-308The [facility] Hospitalment on above:Performed By: #### CMREP ####[facility] Tiwncmknja0786[address] [place], [place] [address]Dr. Elba RajVICKY.MB [Mass/Vol]0.76 ng/mLNormal<=3.60The [facility] HospitalComment on above:Performed By: #### CMREP ####[facility] Yhnjgzesic6[address] [place], [place] [address]Dr. Elba FosterTROP47.3 pg/mLNormal4.0-76.1The [facility] HospitalComment on above:Result Comment: CUT-OFF POINTS HAVE BEEN ESTABLISHED BASED ON THE [facility] UNIVERSAL DEFINITIONS OF MYOCARDIALINFARCTION. THE UPPER REFERENCE LIMIT (URL) OF TROPONIN, DEFINED THE 99TH PERCENTILE OFcT nI DISTRIBUTION IN A REFERENCE POPULATION, HAS BEEN CONFIRMED THE DECISION THRESHOLDFOR DE DIAGNOSIS.Performed By: #### CMREP ####[facility] Hckgyixnri107[address] [place], [place] [address]Dr. Elba RajCBC AUTO DIFF on 34-35-4143BKXY #0.1 103/ulNormal0.0-0.1The [facility] Hospitalment on above: Performed By: #### CBC ####[facility] Ngqfugfibt58[address] [place] [address]Dr.Yilan ChangBasophils/100 WBC (Bld)1.1 %Normal 0.2-2.0The [facility] HospitalComment on above:Performed By: #### CBC ####[facility] Epznisawnq819[address] [place], [place] [address]Dr.Yilan ChangEO # 0.6 103/ulNormal0.0-0.7The [facility] HospitalComment on above:Performed By: #### CBC ####[facility] Zsydstdnic0689[address] [place], [place] [address]Dr. Yilan ChangEosinophils/100 WBC (Bld)8.9 %Critically high0.9-7.0The [facility] HospitalComment on above:Performed By: #### CBC ####[facility] Tgtlejydlv2935[address] [place], [place] [address]Dr.Yilan ChangErythrocyte distribution width (RBC) [Ratio]21.1 %Critically high11.0-15.0The [facility] HospitalComment on above:Performed By: #### CBC ####[facility] Xcqohvoqeq060[address] [place], [place] [address]Dr.Yilan ChangHematocrit (Bld) [Volume fraction]39.1 %Critically low42.0-54.0The [facility] HospitalComment on above:Performed By: #### CBC ####[facility] Cejqsdtgcx9697[address] [place], [place] [address]Dr.Yilan ChangHemoglobin (Bld) [Mass/Vol]12.6 g/dL Critically low14.0-18.0The [facility] HospitalComment on above:Performed By: #### CBC ####[facility] Chwodcvqok5959[address] [place], [place] [address]Dr. Yilan ChangIG #0.04 10e3/ulCritically high0.00-0.03The [facility] HospitalComment on above:Performed By: #### CBC ####[facility] Wfrdrwxlkb8766[address] [place], [place] [address]Dr.Yilan ChangIG %0.6 %Critically high0.0-0.5The [facility] HospitalComment on above:Performed By: #### CBC ####[facility] Brwnebgkzj4[address] [place] [address]Dr.Elba FranksMPH #0.9 103/ulCritically low1.2-3.8The [facility] HospitalComment on above:Performed By: #### CBC ####[facility] Ttusibyaka9[address] [place] [address]Dr.Elba AnthonyLymphocytes/100 WBC (Bld)13.8 %Critically low20.5-60.0The [facility] HospitalComment on above:Performed By: #### CBC ####[facility] Oltdhfpfdq8857[address] [place], [place] [address]Dr.Elba AnthonyMANUAL DIFF REQ NONormalThe [facility] HospitalComment on above:Performed By: #### CBC ####[facility] Bqizbtykks5308[address] [place], [place] [address]Dr. Elba AnthonyH (RBC) [Entitic mass]27.5 fvTibrsi87.9-34.0The [facility] Comment on above:Performed By: #### CBC ####[facility] Nvafnjdupw3496[address] [place], [place] [address]Dr.Elba AnthonyHC (RBC) [Mass/Vol]32.2 g/dL Urzfvh17.9-35.2The [facility] HospitalComment on above:Performed By: #### CBC ####[facility] Udkupvrcso1239[address] [place], [place] [address]Dr. Elba AnthonyV (RBC) [Entitic vol]85.2 pWZpgolo04.0-94.0The [facility] Comment on above:Performed By: #### CBC ####[facility] Wvnruxgbjg[address] [place], [place] [address]Dr.Elba AnthonyMONO #0.9 103/ulCritically high0.3-0.8The [facility] HospitalComment on above:Performed By: #### CBC ####[facility] Ajeerofszn6337[address] [place], [place] [address]Dr. Elba RajMonocytes/100 WBC (Bld)14.0 %Critically high1.7-12.0The [facility] HospitalComment on above:Performed By: #### CBC ####[facility] Jixjyujsmk3899[address] [place], [place] [address]Dr.Elba AnthonyNEUT #4.1 103/ulNormal1.4-6.5The [facility] HospitalComment on above:Performed By: #### CBC ####[facility] Fgayiijgvt414[address] [place], [place] [address]Dr. Elba AnthonyNeutrophils/100 WBC (Bld)61.6 %Hcbpgk12.0-75.0The [facility] Comment on above:Performed By: #### CBC ####[facility] Dgosddvdyz5876[address] [place], [place] [address]Dr.Elba AnthonyPlatelet mean volume (Bld) [Entitic vol]10.1 fLNormal9.5-13.5The [facility] HospitalComment on above: Performed By: #### CBC ####[facility] Tatledguqo5749[address] [place], [place] [address]Dr.Elba AyiqtLLK479 103/soUxeedx804-369Pvl [facility] HospitalComment on above:Performed By: #### CBC ####[facility] Nogyegbhxy7045[address] [place], [place] [address]Dr.Elba ChangRBC4.59 106/ul Critically low4.70-6.10The [facility] HospitalComment on above:Performed By: #### CBC ####[facility] Igeefcmvst7066[address] [place], [place] [address]Dr. Elba ChangWBC6.7 103/ulNormal4.0-11.0The [facility] HospitalComment on above: Performed By: #### CBC ####[facility] Yirzrdzuky[address] [place], [place] [address]Dr.Elba AnthonyCovid-19 PCR ([facility])on 07-10-2022 SARS-CoV-2 (COVID-19) RNA ELIZABETH+probe Ql (Unsp spec)Not detectedNormalNOT DETECTED The [facility] HospitalComment on above:Result Comment: When diagnostic testing is negative, the possibility of a false negative should be considered inthe context of a patient's recent exposures and the presence of clinical signs and sympt omsconsistent with SARS-CoV-2.This test is not yet approved or cleared by the [place] FDA. When there are no FDA-approved or cleared tests available, and other criteria are met, FDA can make tests available under an emergency access mechanism called an Emergency Use Authorization (EUA). The EUA for this test is supported by the [employer] of Health and Human Service's declaration that circumstances exist to justify the emergency use of in vitro diagnostics for the detection and/or diagnosis of the virus that causes COVID-19. This EUA will remain in effect for the duration of the COVID-19declaration justifying emergency of IVDs, unless it is terminated or revoked by the FDA (after which the test may no longer be used).Performed By: #### CVDTBH ####[facility] Dhzznockyk9[address] [place], [place] [address]Dr. Nereydalan ChangER URINE PROFILEon 47-59-2694Ljbsfyfpj Ql (U)NegativeNormalNEGATIVECleveland Clinic Foundation Comment on above:Performed By: #### ERUR ####[facility] Szpqpghyta513[address] [place], [place] [address]Dr. Yilan ChangClarity (U)CLEARNormalCLEAR [facility] FoundationComment on above:Performed By: #### ERUR ####[facility] Tezuxwwhch8294[address] [place], [place] [address]Dr. Yilan ChangColor (U)LT. YELLOWNormalYELLOWCleveland Clinic FoundationComment on above:Performed By: #### ERUR ####[facility] Hbutyuytlk3292[address] [place], [place] [address]Dr. Yilan ChangERUAHDA micrscopic examination will be performed if indicated.NormalCleveland Clinic FoundationComment on above:Performed By: #### ERUR ####[facility] Fhkcertych3774[address] [place], [place] [address]Dr. Yilan ChangGlucose Ql (U)NegativeNormalNEGATIVECleveland Clinic FoundationComment on above:Performed By: #### ERUR ####[facility] Acofbcqgxn[address] [place] [address]Dr. Yilan ChangHemoglobin Ql (U)NegativeNormalNEGATIVE The [facility] HospitalComment on above:Performed By: #### ERUR ####[facility] Apskjxslbf1433[address] [place], [place] [address]Dr. Yilan Anthony Ketones Ql (U)NegativeNormalNEGATIVEThe [facility] HospitalComment on above: Performed By: #### ERUR ####[facility] Qvvlknovtj6394[address] [place], [place] [address]Dr. Yilan ChangLEUKOCYTESNegativeNormalNEGATIVEThe [facility] HospitalComment on above:Performed By: #### ERUR ####[facility] Quhikogphx157[address] [place], [place] [address]Dr. Yilan ChangNitrite Ql (U) NegativeNormalNEGATIVEThe [facility] HospitalComment on above:Performed By: #### ERUR ####[facility] Awwpivvqak8824[address] [place], [place] [address]Dr. Yilan ChangpH (U)7.0 [pH]Normal5-9The [facility] HospitalComment on above:Performed By: #### ERUR ####[facility] Eaohuvhpwd2584[address] [place], [place] [address]Dr. Yilan ChangSPEC GRAVITY1.891Colmmj3.005-<=1.025The [facility] HospitalComment on above:Performed By: #### ERUR ####[facility] Ewhthbgpuz0062[address] [place], [place] [address]Dr. Yilan ChangUA PROTEIN NegativeNormalNEGATIVE/ TRACEThe [facility] HospitalComment on above:Performed By: #### ERUR ####[facility] Kxrihzgptb9399[address] [place], [place] [address]Dr. Yilan ChangUR MICRO INDNOT INDICATEDNormalThe [facility] HospitalComment on above:Performed By: #### ERUR ####[facility] Mmypxjfkzg1245[address] [place], [place] [address]Dr. Yilan ChangUrobilinogen Qn (U)0.2 {Caden'U}/dL Normal0.2 - 1.0The [facility] HospitalComment on above:Performed By: #### ERUR ####[facility] Xlepvqccif7[address] [place] [address]Dr. Yilan ChangPROF 14(COMP METB)on 82-57-9252Aqxhbwz [Mass/Vol]3.3 g/dLCritically low3.4-5.0The [facility] HospitalComment on above:Performed By: #### HSTROPN, BNP, CMP ####[facility] [address]quvzlatnt[address] [place] [address]Dr. Yilan ChangAlbumin/Globulin [Mass ratio]0.8 {ratio}NormalThe [facility] Comment on above:Performed By: #### HSTROPN, BNP, CMP ####[facility] Omqabgikyv18[address] [place], [place] [address]Dr. Yilan ChangALP [Catalytic activity/Vol]114 U/VQymdfy50-074Fdp [facility] HospitalComment on above:Performed By: #### HSTROPN, BNP, CMP ####[facility] Pwevdttfys[address] [place], [place] [address]Dr. Yilan ChangALT [Catalytic activity/Vol]23 U/LNormal 16-63The [facility] HospitalComment on above:Performed By: #### HSTROPN, BNP, CMP ####[facility] Ofbhfktfkb78[address] [place] [address]Dr. Yilan ChangAnion gap [Moles/Vol]9.5 mmol/LNormalThe [facility] HospitalComment on above:Performed By: #### HSTROPN, BNP, CMP ####[facility] Mffivouueh[address] [place], [place] [address]Dr. Yilan ChangAST [Catalytic activity/Vol]32 U/WLfwgsz35-12Oan [facility] HospitalComment on above:Performed By: #### HSTROPN, BNP, CMP ####[facility] Arevobjdqg9[address] [place], [place] [address]Dr. Yilan ChangBilirubin [Mass/Vol]0.7 mg/dLNormal0.2-1.0The [facility] HospitalComment on above:Performed By: #### HSTROPN, BNP, CMP ####[facility] Taiuvfyvmt3[address] [place] [address]Dr. Elba Anthony Calcium [Mass/Vol]9.1 mg/dLNormal8.5-10.1The [facility] HospitalComment on above: Performed By: #### HSTROPN, BNP, CMP ####[facility] Oqrrzbehdi[address] [place] [address]Dr. Yilan ChangChloride [Moles/Vol]99 mmol/LNormal 98-107The [facility] HospitalComment on above:Performed By: #### HSTROPN, BNP, CMP ####[facility] Xjcpbfwhhx[address] [place], [place] [address]Dr. Yilan ChangCO2 [Moles/Vol]33.2 mmol/LCritically high21.0-32.0The [facility] HospitalComment on above:Performed By: #### HSTROPN, BNP, CMP ####[facility] Vzikzmhssi9[address] [place], [place] [address]Dr. Elba Anthony Creatinine [Mass/Vol]2.31 mg/dLCritically high0.70-1.30The [facility] Comment on above:Performed By: #### HSTROPN, BNP, CMP ####[facility] Nywxjlxlyb9[address] [place] [address]Dr. Yilan ChangEGFR-AF THQMEYFC66 mL/min/1.04u3Stwwqipdoh low>=60The [facility] HospitalComment on above: Performed By: #### HSTROPN, BNP, CMP ####[facility] Zuyyjkjtds022[address] [place] [address]Dr. Yilan ChangEGFR-NON AF JNSNHEPJ65 mL/min/1.34i9Sqacfeeluh low>=60The [facility] HospitalComment on above:Performed By: #### HSTROPN, BNP, CMP ####[facility] Dynxdtpbql34[address] [place], [place] [address]Dr. Nereydalan ChangGlobulin (S) [Mass/Vol]4.3 g/dLNormalThe [facility] HospitalComment on above:Performed By: #### HSTROPN, BNP, CMP ####[facility] Gwjhhgkaex77[address] [place] [address]Dr. Yilan ChangGlucose [Mass/Vol]98 mg/wLPiepvh83-070Pli [facility] HospitalComment on above:Performed By: #### HSTROPN, BNP, CMP ####[facility] Ajzbxgwyqr3[address] [place] [address]Dr. Yilan ChangPotassium [Moles/Vol]4.7 mmol/LNormal3.5-5.1The [facility] HospitalComment on above:Performed By: #### HSTROPN, BNP, CMP ####[facility] Vcwlmnzgwc4[address] [place] [address]Dr. Yilan ChangProtein [Mass/Vol]7.6 g/dLNormal6.4-8.2The [facility] HospitalComment on above:Performed By: #### HSTROPN, BNP, CMP ####[facility] Lyzojruedz[address] [place], [place] [address]Dr. Yilan ChangSodium [Moles/Vol]137 mmol/SBzejwb448-349Iwj [facility] HospitalComment on above: Performed By: #### HSTROPN, BNP, CMP ####[facility] Afppoxdofg55[address] [place], [place] [address]Dr. Yilan ChangUrea nitrogen [Mass/Vol]47.0 mg/dL Critically high7.0-18.0The [facility] HospitalComveterans affairs medical center on above:Performed By: #### HSTROPN, BNP, CMP ####[facility] Lewxeyyiui54[address] [place], [place] [address]Dr. Yilan ChangUrea nitrogen/Creatinine [Mass ratio]20.3 mg/mgNormal The [facility] HospitalComment on above:Performed By: #### HSTROPN, BNP, CMP ####[facility] Lhoylojmjj7[address] [place], [place] [address]Dr. Yilan ChangPROTIMEon 32-97-8590EQW Coag (PPP) [Relative time]1.07 {INR}NormalThe [facility] HospitalComment on above:Performed By: #### PT, PTT ####[facility] Pookzgksym[address] [place] [address]Dr. Elba AnthonyINR GUIDELINESSEE BELOWNormalThKettering Health DaytonComment on above:Result Comment: DESIRED INR: 2.0 - 3.0 CONDITIONS NOT LISTED BELOW 2.5 - 3.5 FOR PROSTHETIC HEART VALVE REPLACEMENT 2.5 - 3.5 RECURRENT THROMBOSISPerformed By: #### PT, PTT ####[facility] Lbjetstzwf[address] [place] [address]Dr. Yisiobhan ChangPT Coag (PPP) [Time]11.5 sNormal9.0-11.6The [facility] HospitalComment on above:Performed By: #### PT, PTT ####[facility] Askkkmzttb[address] [place] [address]Dr. Elba AnthonyPTTon 14-17-1270hNOM Coag (Bld) [Time]34.7 xKnyzpo11.3-36.2The [facility] HospitalComment on above:Performed By: #### PT, PTT ####[facility] Mmjgjldgdg94[address] [place] [address]Dr. Elba RajTROPONIN, HIGH SENSITIVITYon 85-99-4028RTZTTM97.2 pg/mL Normal4.0-76.1The [facility] HospitalComveterans affairs [facility] center on above:Result Comment: CUT-OFF POINTS HAVE BEEN ESTABLISHED BASED ON THE FOURTH UNIVERSAL DEFINITIONS OF MY OCARDIALINFARCTION. THE UPPER REFERENCE LIMIT (URL) OF TROPONIN, DEFINED THE 99TH PERCENTILE OFcTnI DISTRIBUTION IN A REFERENCE POPULATION, HAS BEEN CONFIRMED THE DECISION THRESHOLDFOR DE DIAGNOSIS.Performed By: #### HSTROPN, BNP, CMP ####[facility] [address] [place] [place] [address]Dr. Nereydasiobhan AnthonyXR CHEST 1 Von 18-85-6489YJ CHEST 1 VNormalThe [facility] Lodi HospitalUS venous duplex LE BIon 99-85-1410LN venous duplex LE [facility] [place] [address] Ultrasound Report Signed Patient: Man Patel MR#: [id number] : 1950 Acct:[id number] Age/Sex: 72 / M ADM Date: 06/27/22 Loc: ER Room: Type: [facility] ER Attending Dr: Ordering Provider: Melva Owusu [...] Balwinder Watson MD06/28/2022 8:49 AM Dictation Location: [place] [address] Tech: Mayra Henry Transcribed By: KELLI 06/28/22 0849 Dictated By: Balwinder Watson MD 06/28/22 0849 Signed By: 06/28/22 0849NoMercy Health Allen HospitalActivated partial thromboplastin time (aPTT) in platelet poor plasma by coagulation aOrdered By: Melva Owusu on 33-00-8364yHWZ Coag (PPP) [Time]36.4 s25.1-36.5FTriHealth Good Samaritan HospitalAlbumin [Mass/volume] in Serum or PlasmaOrdered By: Melva Owusu on 50-56-9578Bencvqt [Mass/Vol]3.1 g/dL3.2-5.5FTriHealth Good Samaritan HospitalB-Type Natriuretic Peptideon 80-71-7595Lpmcchfhmnn peptide B (Bld) [Mass/Vol]367.0 pg/mLHigh5-100K[facility]tering Health MiamisburgComment on above:Result Comment: PERFORMED BY: [facility] [address] [place] [address] GARCIA M.D.Performed By: #### SOFIANEG, COVID-19 JOSE #### [place] [id number] USABasophils Auto (Bld) [#/Vol]Ordered By: Melva Owusu on 95-80-9431Bnpljejew (Bld) [#/Vol]0.0 10*3/uL0.0-0.2FTriHealth Good Samaritan HospitalBasophils/100 WBC Auto (Bld)Ordered By: Melva Kristenctjose francisco on 06-27-2022 Basophils/100 WBC (Bld)0.6 %.[facility] MiamisburgBilirubin Test strip Ql (U)Ordered By: Melva Kristenglendy on 29-16-9627Gnslgljlt Ql (U)Negative NegativeKettering Health MiamisburgBlood Cultureon 93-81-2056Ojjzzxho identified Cx Nom (Bld)NO GROWTH 5 DAYS PERFORMED BY: [place] [address] GARCIA M.D.[facility] Charles HospitalComment on above: Performed By: #### CUBLD, LACTIC #### [place] [address] USABacteria identified Cx Nom (Bld)NO GROWTH 5 DAYS PERFORMED BY: [place] [address] GARCIA M.D.[facility]. Charles HospitalComment on above: Performed By: #### CUBLD, LACTIC #### [place] [address] USACOVID-19 Antigenon 30-21-1741FQEKC-19 AntigenHealthcare Worker?: N Reference Range: Negative Negative results, [...] developed and its performance characteristic determined by [employer] and validated at [facility]. This test has not been FDA cleared [...] for SARS Antigen by MORIAH PERFORMED BY: [place] [address] GARCIA M.D.NormalKettering Health MiamisburgComment on above: Performed By: #### SOFIANEG, COVID-19 JOSE #### [address] [address] USACOVID-19 SOFIAOrdered By: Balwinder Chavarria on 06-27-2022 SARS-CoV+SARS-CoV-2 (COVID-19) Ag IA.rapid Ql (Resp)NegativeNegativeKettering Health MiamisburgComment on above:This is a duplicate Jose SARS Antigen (MORIAH) result to be used for statistical tracking purpose only.Coagulation Profileon 94-69-9258tCWK Coag (Bld) [Time]36.4 qSxcmzj03.1-36.5FTriHealth Good Samaritan HospitalComment on above:Result Comment: PERFORMED BY: [address] [address] [address] GARCIA M.D.Performed By: #### KYLE COVID-19 JOSE #### [place] [address] USAINR Coag (PPP) [Relative time]1.5 {INR}NormalKettering Health MiamisburgComment on above:Result Comment: INR Therapeutic Range A) Pre- and [...] patients with mechanical heart valves: 3 - 4.5Performed By: #### KYLE COVID-19 JOSE #### [place] [address] USAPT Coag (PPP) [Time]17.3 sHigh9.0-12.9K[facility] MiamisburgComment on above:Performed By: #### KYLE COVID-19 JOSE #### [place] [address] USAColor Auto (U)Ordered By: Melva Owusu on 06-27-2022 Color (U)YellowYelCleveland Clinic Children's Hospital for RehabilitationComplete Blood Count Auto Diffon 96-22-8363Zesapnyve (Bld) [#/Vol]0.0 10*3/uLNormal0.0-0.2FTriHealth Good Samaritan HospitalComment on above:Result Comment: PERFORMED BY: [place] [address] GARCIA M.D.Performed By: #### BNP, CBC, PP, CMP #### [place] [address] USABasophils/100 WBC (Bld)0.6 %Normal.[facility] MiamisburgComment on above:Performed By: #### BNP, CBC, PP, CMP #### [place] [address] USAEosinophils (Bld) [#/Vol]0.6 10*3/uLHigh0.0-0.45K[facility] MiamisburgComment on above:Performed By: #### BNP, CBC, PP, CMP #### [facility] [address] [place] [address] USAEosinophils/100 WBC (Bld)9.4 %Normal.[facility] MiamisburgComment on above:Performed By: #### BNP, CBC, PP, CMP #### [place] [address] USAErythrocyte distribution width (RBC) [Ratio]24.6 %High 12.0-14.8K[facility] MiamisburgComment on above:Performed By: #### BNP, CBC, PP, CMP #### [place] [address] USAHematocrit (Bld) [Volume fraction]39.7 %Utpinl88.8-50.0 [facility] MiamisburgComment on above:Performed By: #### BNP, CBC, PP, CMP #### [place] [address] USAHemoglobin (Bld) [Mass/Vol]12.9 g/dLLow13.0-17.0K[facility] MiamisburgComment on above:Performed By: #### BNP, CBC, PP, CMP #### [place] [address] USALymphocytes (Bld) [#/Vol]0.6 10*3/uLLow1.00-4.8[facility] MiamisburgComment on above:Performed By: #### BNP, CBC, PP, CMP #### [place] [address] USALymphocytes/100 WBC (Bld)9.3 %Normal.[facility] MiamisburgComment on above:Performed By: #### BNP, CBC, PP, CMP #### [place] [address] USAMCH (RBC) [Entitic mass]26.8 pgLow27.5-35.2FTriHealth Good Samaritan HospitalComment on above:Performed By: #### BNP, CBC, PP, CMP #### [facility] [address] [place] [address] USAMCV (RBC) [Entitic vol]82.7 fLLow83.5-101K[facility] Health MiamisburgComment on above:Performed By: #### BNP, CBC, PP, CMP #### [place] [address] USAMean Corpuscular HGB Conc32.4 g/dLLow32.5-35.6FTriHealth Good Samaritan HospitalComment on above:Performed By: #### BNP, CBC, PP, CMP #### [place] [address] USAMonocytes (Bld) [#/Vol]0.6 10*3/uLNormal0.0-0.8[facility] MiamisburgComveterans affairs medical center on above:Performed By: #### BNP, CBC, PP, CMP #### [place] [address] USAMonocytes/100 WBC (Bld)9.4 %Normal.[facility] Health MiamisburgComment on above:Performed By: #### BNP, CBC, PP, CMP #### [place] [address] USANeutrophils (Bld) [#/Vol]4.7 10*3/uLNormal1.8-7.7FTriHealth Good Samaritan HospitalComment on above:Performed By: #### BNP, CBC, PP, CMP #### [place] [address] USANeutrophils/100 WBC (Bld)71.3 %Normal.[facility] MiamisburgComment on above:Performed By: #### BNP, CBC, PP, CMP #### [place] [address] USANucleated RBC/100 WBC (Bld) [Ratio]0.0 %Normal0-0.5 [facility] MiamisburgComveterans affairs medical center on above:Performed By: #### BNP, CBC, PP, CMP #### [address] [address] USAPlatelet mean volume (Bld) [Entitic vol]8.0 fLNormal 6.6-10.1FTriHealth Good Samaritan HospitalComment on above:Performed By: #### BNP, CBC, PP, CMP #### [facility] [address] [place] [address] USAPlatelets (Bld) [#/Vol]163 10*3/uPJcqxzk559-903UhulbxwzkKettering Health MiamisburgComment on above:Performed By: #### BNP, CBC, PP, CMP #### [facility] [address] [place] [address] USARBC (Bld) [#/Vol]4.80 10*6/uLNormal3.90-5.60K[facility] MiamisburgComment on above:Performed By: #### BNP, CBC, PP, CMP #### [place] [address] USAWBC (Bld) [#/Vol]6.5 10*3/uLNormal4.5-11.0K[facility] MiamisburgComment on above:Performed By: #### BNP, CBC, PP, CMP #### [place] [address] USAComprehensive Metabolic Panelon 20-60-8981Gqfnysk [Mass/Vol]3.1 g/dLLow3.2-5.5FTriHealth Good Samaritan HospitalComment on above: Performed By: #### BNP, CBC, PP, CMP #### [place] [address] USAAlbumin/Globulin [Mass ratio]0.8 {ratio}NormalKettering Health MiamisburgComment on above:Performed By: #### BNP, CBC, PP, CMP #### [place] [address] USAALP [Catalytic activity/Vol]98 U/RAqci65-17GjwtfntmiKettering Health MiamisburgComment on above:Performed By: #### BNP, CBC, PP, CMP #### [address] [address] USAALT [Catalytic activity/Vol]28 U/JFzweyg59-45HlfddwpdxKettering Health MiamisburgComment on above:Performed By: #### BNP, CBC, PP, CMP #### [facility] [address] [place] [address] USAAnion gap [Moles/Vol]15.0 mmol/LNormal6.0-15.0[facility] MiamisburgComment on above:Performed By: #### BNP, CBC, PP, CMP #### [facility] [address] [place] [address] USAAST [Catalytic activity/Vol]32 U/OCnitix99-28JkzdiyusrKettering Health MiamisburgComment on above:Performed By: #### BNP, CBC, PP, CMP #### [facility] [address] [place] [address] USABilirubin [Mass/Vol]0.9 mg/dLNormal0.3-1.2FTriHealth Good Samaritan HospitalComment on above:Performed By: #### BNP, CBC, PP, CMP #### [facility] [address] [place] [address] USACalcium [Mass/Vol]9.4 mg/dLNormal8.2-10.2FTriHealth Good Samaritan HospitalComment on above:Performed By: #### BNP, CBC, PP, CMP #### [facility] [address] [place] [address] USAChloride [Moles/Vol]96 mmol/XBhivqu56-124RzfvoldkcKettering Health MiamisburgComment on above:Performed By: #### BNP, CBC, PP, CMP #### [facility] [address] [place] [address] USACO2 [Moles/Vol]28.8 mmol/SQiwgts13.0-30.0[facility] MiamisburgComment on above:Performed By: #### BNP, CBC, PP, CMP #### [facility] [address] [place] [address] USACreatinine [Mass/Vol]2.48 mg/dLHigh0.64-1.27[facility] MiamisburgComment on above:Performed By: #### BNP, CBC, PP, CMP #### [facility] [address] [place] [address] USACreatinine Clr Calc Ynzdkmny29.36[facility] St. Charles HospitalComment on above:Result Comment: PERFORMED BY: [facility] [address] [place] [address] GARCIA M.D.Performed By: #### BNP, CBC, PP, CMP #### [place] [address] USAEstimated GFR ( Esvkhlj25FdjiqqYgutldriyMercy Health St. Charles HospitalComment on above:Result Comment: GFR estimated reference range: According to KDOQI guidelines, <60 ml/min/1.73m2 is sufficient to diagnose a patient with chronic kidney disease.Performed By: #### BNP, CBC, PP, CMP #### [place] [address] USAEstimated GFR (Non- Zp33GpebgvVielzaktaMercy Health St. Charles HospitalComment on above:Performed By: #### BNP, CBC, PP, CMP #### [place] [address] USAGlobulin (S) [Mass/Vol]4.1 g/dLMercy Health St. Charles HospitalComment on above:Performed By: #### BNP, CBC, PP, CMP #### [place] [address] USAGlucose [Mass/Vol]128 mg/rEZfvf57-098JaqlrdhmlKettering Health MiamisburgComment on above:Result Comment: Random Glucose Reference Range is dependent on time and content of last meal. Glucose of more than 200 mg/dL in a nonstressed, ambulatory subject supports the diagnosis of Diabetes Mellitus. ADA recommended reference rangePerformed By: #### BNP, CBC, PP, CMP #### [facility] [address] [place] [address] USAPotassium [Moles/Vol]3.8 mmol/LNormal3.5-5.1FTriHealth Good Samaritan HospitalComment on above:Performed By: #### BNP, CBC, PP, CMP #### [facility] [address] [place] [address] USAProtein [Mass/Vol]7.2 g/dLNormal6.1-7.9[facility] MiamisburgComment on above:Performed By: #### BNP, CBC, PP, CMP #### [facility] [address] [place] [address] USASodium [Moles/Vol]136 mmol/QAjumhf468-128SufjmswgnKettering Health MiamisburgComment on above:Performed By: #### BNP, CBC, PP, CMP #### [facility] [address] [place] [address] USAUrea nitrogen [Mass/Vol]40 mg/dLHigh9-23K[facility] MiamisburgComment on above:Performed By: #### BNP, CBC, PP, CMP #### [facility] [address] [place] [address] USACreatinine and Glomerular filtration rate.predicted panel (S/P/Bld)Ordered By: Melva Owusu on 16-64-2093Ywaimtavvh [Mass/Vol]2.48 mg/dL0.64-1.27K[facility] Health MiamisburgEosinophils Auto (Bld) [#/Vol] Ordered By: Melva Owusu on 28-20-2601Dpgevnsfahs (Bld) [#/Vol]0.6 10*3/uL 0.0-0.45[facility] MiamisburgEosinophils/100 WBC Auto (Bld)Ordered By: Melva Owusu on 95-03-5628Kdjvhuzukeh/100 WBC (Bld)9.4 %.[facility] Health MiamisburgErythrocyte distribution width Auto (RBC) [Ratio]Ordered By: Melva Owusu on 98-60-3968Sygqhlmxhbm distribution width (RBC) [Ratio] 24.6 %12.0-14.8[facility] MiamisburgEstimated glomerular filtration rate (GFR) non- AmericanOrdered By: Melva Owusu on 24-17-7701KYL/1.73 sq M.predicted among non-blacks MDRD (S/P/Bld) [Vol rate/Area]26 mL/Min [facility] MiamisburgGlobulin Calc (S) [Mass/Vol]Ordered By: Melvavance Owusu on 08-51-8260Prbqnibs (S) [Mass/Vol]4.1 g/dLKettering Health MiamisburgHematocrit Auto (Bld) [Volume fraction]Ordered By: Melvavance Owusu on 52-04-2386Ghuwqznilj (Bld) [Volume fraction]39.7 %38.8-50.0[facility] MiamisburgHemoglobin [Mass/volume] in BloodOrdered By: Melva Safctjose francisco on 49-14-6189Mvubipmdqt (Bld) [Mass/Vol]12.9 g/dL13.0-17.0[facility] MiamisburgKetones Auto test strip (U) [Mass/Vol]Ordered By: Melvavance Owusu on 63-83-3054Xhsevqi (U) [Mass/Vol]NegativeNegativeKettering Health MiamisburgLaboratory - Chemistry and Chemistry - challengeOrdered By: Melva Petersonctjose francisco on 59-42-7250Rlbzkpxmmer peptide B (Bld) [Mass/Vol]367.0 pg/mL5-100 [facility] MiamisburgLaboratory - CoagulationOrdered By: Melva [facility] Systemjose francisco on 30-89-6513SM Coag (PPP) [Time]17.3 s9.0-12.9[facility] MiamisburgLaboratory - Hematology and Cell countsOrdered By: Melva [facility] Systemjose francisco on 32-81-6350Sxwigwozq RBC/100 WBC (Bld) [Ratio]0.0 %0-0.5FTriHealth Good Samaritan HospitalLactic Acidon 64-36-4812Miclywe [Moles/Vol]1.7 mmol/LNormal0.5-2.2 [facility] MiamisburgComment on above:Result Comment: PERFORMED BY: [place] [address] GARCIA M.D.Performed By: #### JAYCE, LACTIC #### [place] [address] USALeukocytes [#/volume] in Blood by Automated countOrdered By: Melva Owusu on 61-08-9906UUA (Bld) [#/Vol]6.5 10*3/uL4.5-11.0K[facility] Health MiamisburgLymphocytes Auto (Bld) [#/Vol]Ordered By: Melva Kristenglendy on 30-52-7649Vedamktraga (Bld) [#/Vol]0.6 10*3/uL1.00-4.8[facility] MiamisburgLymphocytes/100 WBC Auto (Bld)Ordered By: Melva Kristenglendy on 70-81-1236Ukwtjsfxfea/100 WBC (Bld)9.3 %.[facility] Health MiamisburgMCH Auto (RBC) [Entitic mass]Ordered By: Melva Owusu on 72-34-1414CNK (RBC) [Entitic mass]26.8 pg27.5-35.2FTriHealth Good Samaritan HospitalMCHC Auto (RBC) [Mass/Vol]Ordered By: Melva Owusu on 05-82-2335MFNZ (RBC) [Mass/Vol]32.4 g/dL32.5-35.6FTriHealth Good Samaritan HospitalMCV Auto (RBC) [Entitic vol] Ordered By: Melva Owusu on 75-73-5251BYI (RBC) [Entitic vol]82.7 fL83.5-101 [facility] MiamisburgMonocytes Auto (Bld) [#/Vol]Ordered By: Melva Kristenglendy on 54-08-5580Fqyfaegsz (Bld) [#/Vol]0.6 10*3/uL0.0-0.8[facility] MiamisburgMonocytes/100 WBC Auto (Bld)Ordered By: Melva Owusu on 99-42-2630Dpjgsycts/100 WBC (Bld)9.4 %.[facility] Neutrophils Auto (Bld) [#/Vol]Ordered By: Melva Owusu on 06-27-2022 Neutrophils (Bld) [#/Vol]4.7 10*3/uL1.8-7.7FTriHealth [facility] Hospital Neutrophils/100 WBC Auto (Bld)Ordered By: Melva Owusu on 06-27-2022 Neutrophils/100 WBC (Bld)71.3 %.[facility] Health MiamisburgNitrite Test strip Ql (U)Ordered By: Melva Owusu on 30-57-9489Zleivgr Ql (U)Negative NegativeKettering Health MiamisburgNo Panel InformationOrdered By: Melva Owusu on 31-72-6675Nrqcuoavj GFR ()31 mL/MinKettering Health MiamisburgComment on above:GFR estimated reference range: According to KDOQI guidelines, <60 ml/min/1.73m2 is sufficient todiagnose a patient with chronic kidney disease.Pharmacy Creatinine Clearance (Chem33.36[facility] MiamisburgNo Panel InformationOrdered By: Balwinder Chavarria on 49-05-4362BLKT Antigen (LFIA)[facility] MiamisburgPlatelet mean volume Auto (Bld) [Entitic vol]Ordered By: Melva Owusu on 84-29-5236Fkvhhigv mean volume (Bld) [Entitic vol]8.0 fL6.6-10.1FTriHealth Good Samaritan Hospital Platelet poor plasma international normalized ratio (INR) by coagulation assay (relatOrdered By: Melva Owusu on 81-64-5290SYC Coag (PPP) [Relative time]1.5 {INR}[facility] MiamisburgComment on above:INR Therapeutic Range A) Pre- and Peroperative OAT started two weeks before surgery. NOT HIP SURGERY: 1.5 - 2.5 HIP SURGERY: 2 - 3B) Primary and secondary prevention of venous THROMBOSIS: 2 - 3C) Active venous thrombosis, pulmonary embolismand prevention of recurrent venous thrombosis: 2 - 3D) Prevention of arterial thromboembolismincluding patients with mechanical heart valves: 3 - 4.5Platelets Auto (Bld) [#/Vol]Ordered By: Melva Owusu on 15-65-1389Rlvpnwder (Bld) [#/Vol]163 10*3/aD420-616JiiectsarKettering Health MiamisburgProtein Auto test strip (U) [Mass/Vol]Ordered By: Melva Owusu on 56-03-5422Ketkmbl (U) [Mass/Vol]NegativeNegativeKettering Health MiamisburgProtein [Mass/volume] in Serum or PlasmaOrdered By: Melva Owusu on 73-57-9798Ljaozis [Mass/Vol] 7.2 g/dL6.1-7.9[facility] MiamisburgRBC Auto (Bld) [#/Vol]Ordered By: Melva Owusu on 27-15-9517STT (Bld) [#/Vol]4.80 10*6/uL3.90-5.60St. Vincent Hospitalerum or plasma alanine aminotransferase measurement without P-5'-P (enzymatic activiOrdered By: Melva Owusu on 25-39-4164IIW No additional P-5'-P [Catalytic activity/Vol]28 U/B65-39KiunrzsxiSt. Vincent Hospitalerum or plasma albumin/globulin mass ratioOrdered By: Melva Owusu on 62-21-6361Upbhnzh/Globulin [Mass ratio]0.8 {ratio}St. Vincent Hospitalerum or plasma alkaline phosphatase measurement (enzymatic activity/volume)Ordered By: Melva Owusu on 40-44-1402KIO [Catalytic activity/Vol]98 U/J23-86UezyahmleSt. Vincent Hospitalerum or plasma anion gap determinationOrdered By: Melva Owusu on 64-66-2810Ivexw gap [Moles/Vol] 15.0 mmol/L6.0-15.0St. Vincent Hospitalerum or plasma aspartate aminotransferase measurement (enzymatic activity/volume)Ordered By: Melva Owusu on 02-97-2497RJM [Catalytic activity/Vol]32 U/D86-25NehrzkwiiSt. Vincent Hospitalerum or plasma calcium measurement (mass/volume)Ordered By: Melva Owusu on 93-25-2619Sphcqlo [Mass/Vol]9.4 mg/dL8.2-10.2FSt. Mary's Medical Centererum or plasma chloride measurement (moles/volume) Ordered By: Melva Owusu on 22-74-7579Sxirektw [Moles/Vol]96 mmol/L95-114 St. Vincent Hospitalerum or plasma glucose measurement (mass/volume)Ordered By: Melva Owusu on 11-87-0016Wplyras [Mass/Vol]128 mg/vB85-008BjseiygpnKettering Health MiamisburgComment on above:ADA recommended reference rangeRandom Glucose Reference Range is dependent on time and content of last meal. Glucose of more than 200 mg/dL in a nonstressed, ambulatory subject supports the diagnosisof Diabetes Mellitus.Serum or plasma potassium measurement (moles/volume)Ordered By: [facility] on 93-31-6404Iuwikepuy [Moles/Vol]3.8 mmol/L3.5-5.1FSt. Mary's Medical Centererum or plasma sodium measurement (moles/volume)Ordered By: [facility] on 81-59-9641Tomypy [Moles/Vol]136 mmol/S920-958TpegxhxwtSt. Vincent Hospitalerum or plasma total bilirubin measurement (mass/volume)Ordered By: [facility] on 34-37-3122Yvwhecucm [Mass/Vol]0.9 mg/dL0.3-1.2FTriHealth Good Samaritan Hospital Serum or plasma total carbon dioxide measurement (moles/volume)Ordered By: [facility] on 59-23-5096KJ5 [Moles/Vol]28.8 mmol/L22.0-30.0St. Vincent Hospitalerum or plasma urea nitrogen measurement (mass/volume) Ordered By: [facility] on 50-50-6110Tcyh nitrogen [Mass/Vol]40 mg/dL9-23 St. Vincent Hospitalofia Ag Negativeon 80-96-6009Tixgj Ag Negative NegativeNormalNegativeKettering Health MiamisburgComment on above:Result Comment: This is a duplicate Jose SARS Antigen (MORIAH) result to be used for statistical tracking purpose only. PERFORMED BY: [place] [address] GARCIA M.D.Performed By: #### SOFIANEG, COVID-19 JOSE #### [place] [address] USASpecific gravity Auto test strip (U) [Rel density]Ordered By: Melva [facility] Systemjose francisco on 05-85-9775Vcfaxbgk gravity (U) [Rel density]1.012 1.001-1.030[facility] Health MiamisburgUrinalysison 06-90-5389Klwwqofpbi (U)ClearNormalClearKettering Health MiamisburgComment on above:Order Comment: Name Collection Type:: Clean-Voided MidstreamPerformed By: #### UA #### [facility] [address] [place] [address] USABilirubin,UrineNegativeNormalNegativeKettering Health MiamisburgComment on above:Order Comment: Name Collection Type:: Clean- Voided MidstreamPerformed By: #### UA #### [facility] [address] [place] [address] USAColor (U)YellowNormalYellowKettering Health MiamisburgComment on above:Order Comment: Name Collection Type:: Clean-Voided MidstreamPerformed By: #### UA #### [facility] [address] [place], [place] [address] USAGlucose Ql (U)NormalNormalNormTrinity Health System East CampusComment on above:Order Comment: Name Collection Type:: Clean-Voided MidstreamPerformed By: #### UA #### [facility] [address] [place] [address] USAKetones Ql (U)NegativeNormalNegOhio State University Wexner Medical CenterComment on above:Order Comment: Name Collection Type:: Clean- Voided MidstreamPerformed By: #### UA #### [facility] [address] [place] [address] USALeukocyte esterase Test strip Ql (U)NegativeNormalNegSt. Elizabeth HospitalComment on above:Order Comment: Name Collection Type:: Clean-Voided MidstreamPerformed By: #### UA #### [facility] [address] [place] [address] USANitrite,UrineNegativeNormalNegativeKettering Health MiamisburgComment on above:Order Comment: Name Collection Type:: Clean- Voided MidstreamPerformed By: #### UA #### [facility] [address] [place], [place] [address] USAOccult Blood,UrineNegativeNormalNegativeKettering Health MiamisburgComment on above:Order Comment: Name Collection Type:: Clean- Voided MidstreamResult Comment: PERFORMED BY: [place] [address] GARCIA M.D.Performed By: #### UA #### [facility] [address] [place] [address] USApH (U)6.0 [pH]Normal5.0-9.0[facility] MiamisburgComment on above:Order Comment: Name Collection Type:: Clean-Voided MidstreamPerformed By: #### UA #### [facility] [address] [place] [address] USAProtein,UrineNegativeNormalNegativeKettering Health MiamisburgComment on above:Order Comment: Name Collection Type:: Clean- Voided MidstreamPerformed By: #### UA #### [place] [address] USASpecificy Boyden,Urine1.394Ieltyc4.001-1.030[facility] MiamisburgComment on above:Order Comment: Name Collection Type:: Clean-Voided MidstreamPerformed By: #### UA #### [place] [address] USAUrobilinogen,UrineNormalNormalNormalKettering Health MiamisburgComment on above:Order Comment: Name Collection Type:: Clean- Voided MidstreamPerformed By: #### UA #### [place] [address] USAUrine clarity by refractometry automatedOrdered By: Melva Owusu on 65-53-1964Rweivlt Refractometry automated (U)ClearClear [facility] MiamisburgUrine glucose measurement by automated test strip (mass/volume)Ordered By: Melva Owusu on [id number] Auto test strip (U) [Mass/Vol]Normal mg/dLNormTrinity Health System East CampusUrine hemoglobin detection by automated test stripOrdered By: Melva Owusu on [id number] Auto test strip Ql (U)NegativeNegOhio State University Wexner Medical CenterUrine lactic acid measurementOrdered By: Melva Owusu on [id number] (U) [Moles/Vol]1.7 mmol/L0.5-2.2FTriHealth Good Samaritan HospitalUrine leukocyte esterase detection by automated test stripOrdered By: Melva Owusu on 98-64-4048Rqybzqfsu esterase Auto test strip Ql (U)Negative NegativeKettering Health MiamisburgUrobilinogen Auto test strip (U) [Mass/Vol]Ordered By: Melva Owusu on 08-95-9395Quuktpcpmfia (U) [Mass/Vol] Normal mg/dLNormalKettering Health MiamisburgXR chest 2V*on 69-55-9221AL chest 2V*[facility] [place] [address] XRay Report Signed Patient: aMn Patel MR#: [id number] : 1950 Acct:[id number] Age/Sex: 72 / M ADM Date: 06/27/22 Loc: ER Room: Type: [facility] ER Attending Dr: Copies to: GAIL Alexandre [...] Cris Johnson M.D.06/27/2022 3:42 PM Dictation Location: [place] [address] Transcribed By: [facility] 06/27/221541 Dictated By: Cris Johnson MD 06/27/221539 Signed By: 06/27/22 154NormTrinity Health System East CampuspH Auto test strip (U) Ordered By: Melva Owusu on 77-85-3027pY (U)6.0 [pH]5.0-9.0Kettering Health MiamisburgECHOCARDIO M/2D COMPLETEon 87-87-2473KYXRFGWJRO M/2D COMPLETE NormalThe [facility] METABOLIC PANELon 90-20-7720Neyoynd [Mass/Vol] 8.6 mg/dLNormal8.6-10.3The [facility] CenterComment on above: Order Comment: Yes: Add to Previous draw if ablePerformed By: #### [id number] #### [facility] [address] [place] [address], USAChloride [Moles/Vol]97 mmol/JXmo25-518Sed [facility] CenterComment on above:Order Comment: Yes: Add to Previous draw if ablePerformed By: #### [id number] #### [facility] [address] [place] [address], USACO2 [Moles/Vol]30 mmol/FEefuxs13-88Gav [facility] CenterComment on above:Order Comment: Yes: Add to Previous draw if able Performed By: #### 85982 #### [facility] [address] [place] [address], USACreatinine [Mass/Vol]2.14 mg/dLHigh0.70-1.30The [facility] CenterComment on above:Order Comment: Yes: Add to Previous draw if ablePerformed By: #### 73049 #### [facility] [address] [place] [address], EXAVXUI41 ml/min/1.73sq mAbnormal>60The [facility] CenterComment on above:Order Comment: Yes: Add to Previous draw if able Result Comment: The [facility]'s estimated glomerular filtration rate (eGFR) [...] not disproportionately affect any one group of individuals.Performed By: #### [id number] #### [facility] [address] [facility] [place] [address], USAGlucose [Mass/Vol]90 mg/rGVkxsdz20-679Lfb [facility] CenterComment on above:Order Comment: Yes: Add to Previous draw if ablePerformed By: #### 48191 #### [facility] [address]. [place] [id number], USAPotassium [Moles/Vol]3.7 mmol/LNormal3.5-5.1The [facility] CenterComment on above:Order Comment: Yes: Add to Previous draw if ablePerformed By: #### 38059 #### [facility] [address] [place] [address], USASodium [Moles/Vol]135 mmol/ZIgv760-803Cem [facility] CenterComment on above:Order Comment: Yes: Add to Previous draw if ablePerformed By: #### 64887 #### [facility] [address] [place] [address], USAUrea nitrogen [Mass/Vol]32 mg/dLHigh7-25The [facility] CenterComment on above:Order Comment: Yes: Add to Previous draw if ablePerformed By: #### 67442 #### [facility] [address] [place] [address], [facility]*SARS-CoV-2 COVID-19on 43-45-9853NSNY-CoV-2 (COVID-19) RNA ELIZABETH+probe Ql (Unsp spec)DetectedCritically abnormalNot DetectedThe [facility] CenterComment on above:Order Comment: The Aptima SARS-CoV-2 assay is a nucleic acid amplification testintended for the qualitative detection of RNA from SARS-CoV-2 isolatedand purified from nasopharyngeal (ASSEMBLY ASSOCIATE), oropharyngeal (OP), nasal swab,sputum, and bronchoalveolar lavage (BAL) specimens from patients withsigns and symptoms of infection who are suspected of COVID-19.Results are for the identification of SARS-CoV-2 RNA. The SARS-CoV-2 RNAis generally detectable during the acute phase of infection.The Aptima SARS-CoV-2 Assay on the [place] [employer] system isintended for use by laboratory personnel specifically instructed andtrained in the operation of the [employer] [employer] [place] [employer] system. TheAptima SARS-CoV-2 assay is only for use under the Food and DrugAdministration Emergency Use Authorization. Testing is limited tolaboratories certified under the Clinical Laboratory ImprovementAmendments of 1988 (CLIA), 42 U.S.C. ???263a, to perform high complexitytests.Detected:Detected result is indicativeof the presence of SARS-CoV-2 RNA;clinical correlation with patient history and other diagnosticinformation is necessary to determine patient infection status.Detection of SARS-CoV-2 RNA does not rule out bacterial infection orco- infection with other viruses.Performed By: #### [id number] ####[facility] [place] [address], USABASIC METABOLIC PANELon 74-68-1342Vdlthjr [Mass/Vol]8.4 mg/dLLow8.6-10.3The [facility] CenterComment on above:Order Comment: No: Do not add to previous drawPerformed By: #### 97589, 36372, 98997 ####[facility] [address], USAChloride [Moles/Vol]97 mmol/FNdo52-868Xag [facility] CenterComment on above:Order Comment: No: Do not add to previous drawPerformed By: #### 28274, 17536, 32793 ####[facility] [address], USACO2 [Moles/Vol]30 mmol/JGseijj71-42Tkx [facility] CenterComment on above:Order Comment: No: Do not add to previous drawPerformed By: #### 10781, 47331, 75272 ####[facility] [place] [address], [facility] Creatinine [Mass/Vol]2.06 mg/dLHigh0.70-1.30The [facility] CenterComment on above:Order Comment: No: Do not add to previous drawPerformed By: #### 21924, 82742, 03299 ####[facility] [address], ZSYNHCT79 ml/min/1.73sq mAbnormal>60The [facility] CenterComment on above:Order Comment: No: Do not add to previous drawResult Comment: The [facility]'s estimated glomerular filtration rate (eGFR) [...] not disproportionately affect any one group of individuals.Performed By: #### 05094, 81333, 56909 ####[facility] [place] [address], USAGlucose [Mass/Vol] 86 mg/nCHqrtoq32-806Sfv [facility] CenterComment on above: Order Comment: No: Do not add to previous drawPerformed By: #### 68162, 95538, 53825 ####[facility] [place] [place] [address], USAPotassium [Moles/Vol]3.7 mmol/LNormal3.5-5.1The [facility] CenterComment on above:Order Comment: No: Do not add to previous draw Performed By: #### 53044, 78909, 81662 ####[facility] [address], USASodium [Moles/Vol]135 mmol/LLow 136-145The [facility] CenterComment on above:Order Comment: No: Do not add to previous drawPerformed By: #### 47772, 44810, 52858 ####[facility] [place] [address], [place] Urea nitrogen [Mass/Vol]35 mg/dLHigh7-25The [facility] Comment on above:Order Comment: No: Do not add to previous drawPerformed By: #### 46087, 38803, 90383 ####[facility] [address], USACBC COMPLETE BLOOD COUNTon 89-69-6336Ndphltlymte distribution width (RBC) [Ratio]21.2 %High11.5-15.0The [facility] CenterComment on above:Order Comment: No: Do not add to previous draw Performed By: #### 58481 #### [facility] [address] [place] [address], [facility] CENTERHematocrit (Bld) [Volume fraction]36.1 %Low39.0-50.0The [facility] CenterComment on above:Order Comment: No: Do not add to previous drawPerformed By: #### 99707 #### [facility] [address] [place] [address], [facility] CENTERHemoglobin (Bld) [Mass/Vol]10.4 g/dLLow13.0-17.0The [facility] CenterComment on above:Order Comment: No: Do not add to previous drawPerformed By: #### 66966 #### [facility] [address] [address], USAMCH (RBC) [Entitic mass]23.6 pgLow27.0-33.0The [facility] CenterComment on above:Order Comment: No: Do not add to previous drawPerformed By: #### 25323 #### [facility] [address] [place] [id number], [facility]UMRIGHTHC (RBC) [Mass/Vol]28.8 g/dLLow32.0-35.0The [facility] CenterComment on above:Order Comment: No: Do not add to previous drawPerformed By: #### 75900 #### [facility] [address] [place] [id number], [facility] CENTERMCV (RBC) [Entitic vol]81.9 fLLow82.0-98.0The [facility] CenterComment on above:Order Comment: No: Do not add to previous drawPerformed By: #### 59074 #### [facility] [address] [place] [address], [facility] CENTERNucleated RBC/100 WBC (Bld) [Ratio]0 %Normal0-0The [facility] CenterComment on above:Order Comment: No: Do not add to previous drawPerformed By: #### 85681 #### [facility] [address] [place] [address], USAPLAT OZW540 10*3/xJJslqby610-530Vkk [facility] CenterComment on above:Order Comment: No: Do not add to previous draw Performed By: #### 13562 #### [facility] [address] [place] [address], [facility] CENTERRBC (Bld) [#/Vol]4.41 10*6/uLNormal4.20-5.70The [facility] CenterComment on above:Order Comment: No: Do not add to previous drawPerformed By: #### 20957 #### [facility] [address] [place] [address], USAWBC (Bld) [#/Vol]4.60 10*3/uLNormal4.00-10.60The [facility] CenterComment on above:Order Comment: No: Do not add to previous drawPerformed By: #### 62783 #### [facility] [address] [place] [address], USAMAGNESIUM BLOODon 91-95-4279Ayjxfczko [Mass/Vol]2.3 mg/dL Normal1.9-2.7The [facility] CenterComment on above:Order Comment: No: Do not add to previous drawPerformed By: #### 74500, 27977, 85076 ####[facility] [place] [address], [place] PHOSPHORUS BLOODon 51-42-7724Cohehnwsd [Mass/Vol]2.6 mg/dLNormal2.5-5.0The [facility] CenterComment on above:Order Comment: No: Do not add to previous drawPerformed By: #### 78801, 06219, 72917 ####[facility] [place] [address], [facility] CENTERPOC SARS COV2 ANTIGEN POSITIVEon [id number] SARS COV2 ANTIGEN POSPositiveCritically abnormalNEGATIVEThe [facility] CenterComment on above:Result Comment: Positive results indicate the presence of viral antigens, but clinical correlation with patient history and other diagnostic information is necessary to determine infection status. Positive results do not rule out bacterial infection or co-infection with other viruses. The agent detected may not be the definite cause of disease. Laboratories within the [facility] and its territories are required to report all results to the appropriate public health authorities. The Clarity COVID-19 Antigen Rapid Test Cassette is a rapid chromatographic immunoassay intended for the qualitative detection of the nucleocapsid protein antigen from SARS-CoV-2 in direct nasopharyngeal swab (ASSEMBLY ASSOCIATE) specimens from individuals who are suspected of [...] Waiver, Certificate of Compliance, or Certificate of Accreditation.Performed By: #### 82919 #### [facility] [address] [place] [address], USABASIC METABOLIC PANELon 83-02-7793Ppuxvho [Mass/Vol]8.3 mg/dLLow8.6-10.3The [facility] CenterComment on above:Order Comment: No: Do not add to previous drawPerformed By: #### 72612 #### [facility] [address] [place] [address], USAChloride [Moles/Vol]99 mmol/SClyxak62-951Yuy [facility] CenterComment on above:Order Comment: No: Do not add to previous drawPerformed By: #### 92410 #### [facility] [address] [place] [address], USACO2 [Moles/Vol]30 mmol/VOeswjs78-91Cin [facility] CenterComment on above:Order Comment: No: Do not add to previous draw Performed By: #### 27586 #### [facility] [address] [place] [address], USACreatinine [Mass/Vol]2.08 mg/dLHigh0.70-1.30The [facility] CenterComment on above:Order Comment: No: Do not add to previous drawPerformed By: #### 12881 #### [facility] [address] [place] [address], OJPOBTK33 ml/min/1.73sq mAbnormal>60The [facility] CenterComment on above:Order Comment: No: Do not add to previous draw Result Comment: The [facility]'s estimated glomerular filtration rate (eGFR) [...] not disproportionately affect any one group of individuals.Performed By: #### 28712 #### [facility] [address] [place] [address], USAGlucose [Mass/Vol]91 mg/kBOzcbbn66-662Ovm [facility] CenterComment on above:Order Comment: No: Do not add to previous drawPerformed By: #### 86811 #### [facility] [address] [place] [address], USAPotassium [Moles/Vol]3.5 mmol/LNormal3.5-5.1The [facility] CenterComment on above:Order Comment: No: Do not add to previous drawPerformed By: #### 93046 #### [facility] [address] [place] [address], USASodium [Moles/Vol]137 mmol/XExrfqv094-043Xlq [facility] CenterComment on above:Order Comment: No: Do not add to previous drawPerformed By: #### 19475 #### [facility] [address] [place] [address], USAUrea nitrogen [Mass/Vol]36 mg/dLHigh7-25The [facility] CenterComment on above:Order Comment: No: Do not add to previous drawPerformed By: #### 45920 #### [facility] [address] [place] [address], USATSH3 WITH REFLEX FT4on [id number] 3RD GENERATION2.46 uIU/mLNormal0.34-5.60The [facility] CenterComment on above: Performed By: #### 67068 #### [facility] [address] [place] [address], USABASIC METABOLIC PANELon 55-21-0956Kpruhuf [Mass/Vol]7.9 mg/dLLow8.6-10.3The [facility] CenterComment on above:Order Comment: Check Pacemaker/AICD Lead Position, Chest X-ray PA \EANDE\ LAT in Dept ;DO NOT lift affected arm above shoulder. S/P pacemaker/ICD implant. Verify lead placementPerformed By: #### 81291 ####[facility] [place] [address], USAChloride [Moles/Vol]99 mmol/PMwbekn41-631Jhc [facility] CenterComment on above:Order Comment: Check Pacemaker/AICD Lead Position, Chest X-ray PA \EANDE\ LAT in Dept ;DO NOT lift a ffected arm above shoulder. S/P pacemaker/ICD implant. Verify lead placement Performed By: #### 99950 ####[facility] [place] [address], USACO2 [Moles/Vol]28 mmol/SWkocab88-15Raq [facility] CenterComment on above:Order Comment: Check Pacemaker/AICD Lead Position, Chest X-ray PA \EANDE\ LAT in Dept ;DO NOT lift affected arm above shoulder. S/P pacemaker/ICD implant. Verify lead placementPerformed By: #### 22029 ####[facility] [place] [address], USACreatinine [Mass/Vol]2.11 mg/dLHigh0.70-1.30The [facility] CenterComment on above:Order Comment: Check Pacemaker/AICD Lead Position, Chest X-ray PA \EANDE\ LAT in Dept ;DO NOT lift affected arm above shoulder. S/P pacemaker/ICD implant. Verify lead placementPerformed By: #### 06842 ####[facility] [place] [address], SAYBYMF91 ml/min/1.73sq mAbnormal>60The [facility] CenterComment on above:Order Comment: Check Pacemaker/AICD Lead Position, Chest X-ray PA \EANDE\ LAT in Dept ;DO NOT lift affected arm above shoulder. S/P pacemaker/ICD implant. Verify lead placementResult Comment: The [facility]'s estimated glomerular filtration rate (eGFR) [...] not disproportionately affect any one group of individuals.Performed By: #### 48508 ####[facility] [facility] [place] [address], USAGlucose [Mass/Vol]95 mg/dLNormal 70-100The [facility] CenterComment on above:Order Comment: Check Pacemaker/AICD Lead Position, Chest X-ray PA \EANDE\ LAT in Dept ;DO NOT lift affected arm above shoulder. S/P pacemaker/ICD implant. Verify lead placementPerformed By: #### 67674 ####[facility] [facility] [place] [address], USAPotassium [Moles/Vol]3.5 mmol/LNormal3.5-5.1 The [facility] CenterComment on above:Order Comment: Check Pacemaker/AICD Lead Position, Chest X-ray PA \EANDE\ LAT in Dept ;DO NOT lift a ffected arm above shoulder. S/P pacemaker/ICD implant. Verify lead placement Performed By: #### 20109 ####[facility] [facility] [place] [address], USASodium [Moles/Vol]137 mmol/UQeazla542-042Ynx [facility] CenterComment on above:Order Comment: Check Pacemaker/AICD Lead Position, Chest X-ray PA \EANDE\ LAT in Dept ;DO NOT lift affected arm above shoulder. S/P pacemaker/ICD implant. Verify lead placementPerformed By: #### 81086 ####[facility] [place] [place] [address], USAUrea nitrogen [Mass/Vol]37 mg/dLHigh7-25The [facility] CenterComment on above:Order Comment: Check Pacemaker/AICD Lead Position, Chest X-ray PA \EANDE\ LAT in Dept ;DO NOT lift affected arm above shoulder. S/P pacemaker/ICD implant. Verify lead placementPerformed By: #### 07132 ####[facility] [place] [address], [facility] CENTERCBC COMPLETE BLOOD COUNTon 65-03-4753Hjkkzcbnymw distribution width (RBC) [Ratio]21.2 %High11.5-15.0The [facility] CenterComment on above:Order Comment: UnknownPerformed By: #### 88772 ####[facility] [address] [place] [address], [facility] CENTERHematocrit (Bld) [Volume fraction]35.5 %Low39.0-50.0The [facility] CenterComment on above:Order Comment: UnknownPerformed By: #### 71964 ####[facility] [address] [place] [address], USAHemoglobin (Bld) [Mass/Vol]10.5 g/dLLow13.0-17.0The [facility] CenterComment on above:Order Comment: UnknownPerformed By: #### 75536 ####[facility] [address] [address], [facility] (RBC) [Entitic mass] 23.8 pgLow27.0-33.0The [facility] CenterComment on above:Order Comment: UnknownPerformed By: #### 74882 ####[facility] [facility] [address], [facility] CENTERMCHC (RBC) [Mass/Vol]29.6 g/dLLow 32.0-35.0The [facility] CenterComment on above:Order Comment: UnknownPerformed By: #### 53460 ####[facility] [address] [address] [address], [facility] CENTERMCV (RBC) [Entitic vol]80.5 fLLow82.0-98.0The [facility] CenterComment on above:Order Comment: Unknown Performed By: #### 38129 ####[facility] [place] [address], USANucleated RBC/100 WBC (Bld) [Ratio]0 %Normal0-0The [facility] CenterComment on above:Order Comment: Unknown Performed By: #### 32028 ####[facility] [place] [address], USAPLAT TSD357 10*3/rJSdlrjz487-939Pbx [facility] CenterComment on above:Order Comment: UnknownPerformed By: #### 30800 ####[facility] [place] [address], [facility] CENTERRBC (Bld) [#/Vol]4.41 10*6/uLNormal4.20-5.70The [facility] CenterComment on above:Order Comment: UnknownPerformed By: #### 39805 ####[facility] [facility] [place] [address], [facility] WBC (Bld) [#/Vol]4.71 10*3/uLNormal4.00-10.60The [facility] CenterComment on above:Order Comment: UnknownPerformed By: #### 29693 ####[facility] [place] [address], [facility] BASIC METABOLIC PANELon 69-65-6334Czewbpe [Mass/Vol]8.1 mg/dLLow8.6-10.3The [facility] CenterComment on above:Order Comment: No: Do not add to previous drawPerformed By: #### 03365 #### [facility] [address] [place] [address], USAChloride [Moles/Vol]97 mmol/MOob38-481Rlz [facility] CenterComment on above:Order Comment: No: Do not add to previous drawPerformed By: #### 98368 #### [facility] [address] [place] [address], USACO2 [Moles/Vol]31 mmol/LTrbvyv64-46Rzj [facility] CenterComment on above:Order Comment: No: Do not add to previous draw Performed By: #### 45538 #### [facility] [address] [place] [address], USACreatinine [Mass/Vol]1.98 mg/dLHigh0.70-1.30The [facility] CenterComment on above:Order Comment: No: Do not add to previous drawPerformed By: #### 84576 #### [facility] [address] [place] [address], LORTWAR87 ml/min/1.73sq mAbnormal>60The [facility] CenterComment on above:Order Comment: No: Do not add to previous draw Result Comment: The [facility]'s estimated glomerular filtration rate (eGFR) [...] not disproportionately affect any one group of individuals.Performed By: #### 24473 #### [facility] [address] [place] [address], USAGlucose [Mass/Vol]88 mg/oQYqpujz38-788Fpj [facility] CenterComment on above:Order Comment: No: Do not add to previous drawPerformed By: #### 91175 #### [facility] [address] [place] [address], USAPotassium [Moles/Vol]3.5 mmol/LNormal3.5-5.1The [facility] CenterComment on above:Order Comment: No: Do not add to previous drawPerformed By: #### [id number] #### [facility] [address] [place] [address], USASodium [Moles/Vol]137 mmol/JBybdil574-635Fya [facility] CenterComment on above:Order Comment: No: Do not add to previous drawPerformed By: #### [id number] #### [facility] [address] [place] [address], USAUrea nitrogen [Mass/Vol]35 mg/dLHigh7-25The [facility] CenterComment on above:Order Comment: No: Do not add to previous drawPerformed By: #### [id number] #### [facility] [address] [place] [address], USACBC COMPLETE BLOOD COUNTon 10-06-7785Ezfcsijxrmp distribution width (RBC) [Ratio]21.2 %High11.5-15.0The [facility] CenterComment on above:Order Comment: No: Do not add to previous draw Performed By: #### [id number] ####[facility] [place] [address], USAHematocrit (Bld) [Volume fraction]34.6 %Low39.0-50.0The [facility] CenterComment on above:Order Comment: No: Do not add to previous drawPerformed By: #### [id number] ####[facility] [place] [address], USAHemoglobin (Bld) [Mass/Vol]10.2 g/dLLow13.0-17.0The [facility] CenterComment on above:Order Comment: No: Do not add to previous drawPerformed By: #### [id number] ####[facility] [place] [address], USAMCH (RBC) [Entitic mass]23.8 pgLow27.0-33.0The [facility] CenterComment on above:Order Comment: No: Do not add to previous drawPerformed By: #### [id number] ####[facility] [place] [address], [facility] MCHC (RBC) [Mass/Vol]29.5 g/dLLow32.0-35.0The [facility] CenterComment on above:Order Comment: No: Do not add to previous drawPerformed By: #### [id number] ####[facility] [address] [place] [address], [facility] CENTERMCV (RBC) [Entitic vol]80.8 fLLow82.0-98.0The [facility] CenterComment on above:Order Comment: No: Do not add to previous draw Performed By: #### 03955 ####[facility] [place] [address], [facility] CENTERNucleated RBC/100 WBC (Bld) [Ratio]0 %Normal0-0The [facility] CenterComment on above:Order Comment: No: Do not add to previous drawPerformed By: #### 48527 ####[facility] [place] [address], [facility] CENTERPLAT HSQ853 10*3/qMNby744-919Trm [facility] CenterComment on above:Order Comment: No: Do not add to previous drawPerformed By: #### 15734 ####[facility] [facility] [place] [address], [facility] CENTERRBC (Bld) [#/Vol]4.28 10*6/uL Normal4.20-5.70The [facility] CenterComment on above:Order Comment: No: Do not add to previous drawPerformed By: #### 90582 ####[facility] [place] [address], USAWBC (Bld) [#/Vol]4.58 10*3/uLNormal4.00-10.60The [facility] Comment on above:Order Comment: No: Do not add to previous drawPerformed By: #### 43243 ####[facility] [place] [address], [facility] CENTERCardiovascular Lab Reporton [id number] Lab Report [facility] MR #: [id number] Department of Physician: Fidel Scott M.D. Division of Service Date: 05/03/2022 Cardiology Birthdate: 1950 Adult Cardiovascular Room #: 5AB [id number] [facility] [address] [place], [place] [address] Cardiovascular Laboratory Report FINAL IMPRESSIONS: 1. Moderately [...] over the hub of the previously placed Clarence sheath. A Evangelista catheter was advanced through Clarence sheath; pressures were measured in the right atrium, right ventricle, pulmonary artery, and pulmonary capillary wedge positions. Oxygen saturations were obtained and cardiac output/cardiac index was calculated using the modified Eliud principle. The Evangelista catheter was removed. The Clarence sheath was to be removed with application [...] Iniguez M.D. Date Trans: 05/04/2022 05:38 A/surekha DN_JN:[id number] cc: Li Cintron M.D. Heart Failure/ Transplant Mailstop [address] [id number] Medical [facility] Hospital - DublinBASIC METABOLIC PANELon 82-62-3152Zwtenvk [Mass/Vol]7.8 mg/dLLow8.6-10.3The [facility] CenterComment on above:Order Comment: Check Pacemaker/AICD Lead Position, Chest X-ray PA \EANDE\ LAT in Dept ;DO NOT lift affected arm above shoulder. S/P pacemaker/ICD implant. Verify lead placementPerformed By: #### 60909, 63134, 07617 ####[facility] [place] [address], USAChloride [Moles/Vol]98 mmol/ODiasir92-965Vxa [facility] CenterComment on above:Order Comment: Check Pacemaker/AICD Lead Position, Chest X-ray PA \EANDE\ LAT in Dept ;DO NOT lift affected arm above shoulder. S/P pacemaker/ICD implant. Verify lead placementPerformed By: #### 33400, 01136, 58155 ####[facility] [place] [address], USACO2 [Moles/Vol]31 mmol/CFugbjz73-11Yjg [facility] CenterComment on above:Order Comment: Check Pacemaker/AICD Lead Position, Chest X-ray PA \EANDE\ LAT in Dept ;DO NOT lift affected arm above shoulder. S/P pacemaker/ICD implant. Verify lead placementPerformed By: #### 07235, 67749, 23188 ####[facility] [facility] [place] [address], USACreatinine [Mass/Vol]2.19 mg/dLHigh0.70-1.30The [facility] CenterComment on above:Order Comment: Check Pacemaker/AICD Lead Position, Chest X-ray PA \EANDE\ LAT in Dept ;DO NOT lift a ffected arm above shoulder. S/P pacemaker/ICD implant. Verify lead placement Performed By: #### 61176, 84435, 63714 ####[facility] [facility] [place] [address], EBYJBVC49 ml/min/1.73sq mAbnormal>60 The [facility] Medical CenterComment on above:Order Comment: Check Pacemaker/AICD Lead Position, Chest X-ray PA \EANDE\ LAT in Dept ;DO NOT lift a ffected arm above shoulder. S/P pacemaker/ICD implant. Verify lead placement Result Comment: The [facility]'s estimated glomerular filtration rate (eGFR) [...] not disproportionately affect any one group of individuals.Performed By: #### 67209, 81011, 76350 ####[facility] [facility] [place] [address], USAGlucose [Mass/Vol] 95 mg/eCPiaspk11-507Nkz [facility] CenterComment on above: Order Comment: Check Pacemaker/AICD Lead Position, Chest X-ray PA \EANDE\ LAT in Dept ;DO NOT lift affected arm above shoulder. S/P pacemaker/ICD implant. Verify lead placementPerformed By: #### 75148, 81280, 32153 ####[facility] [facility] [place] [address], [facility] CENTERPotassium [Moles/Vol]3.3 mmol/LLow3.5-5.1The [facility] CenterComment on above:Order Comment: Check Pacemaker/AICD Lead Position, Chest X-ray PA \EANDE\ LAT in Dept ;DO NOT lift affected arm above shoulder. S/P pacemaker/ICD implant. Verify lead placementPerformed By: #### 23290, 28259, 15183 ####[facility] [facility] [place] [address], [facility] Sodium [Moles/Vol]137 mmol/ELvgvex292-326Bih [facility] Comment on above:Order Comment: Check Pacemaker/AICD Lead Position, Chest X-ray PA \EANDE\ LAT in Dept ;DO NOT lift affected arm above shoulder. S/P pacemaker/ICD implant. Verify lead placementPerformed By: #### 10467, 89288, 00277 ####[facility] [facility] [place] [address], [facility] CENTERUrea nitrogen [Mass/Vol]39 mg/dLHigh7-25The [facility] CenterComment on above:Order Comment: Check Pacemaker/AICD Lead Position, Chest X-ray PA \EANDE\ LAT in Dept ;DO NOT lift affected arm above shoulder. S/P pacemaker/ICD implant. Verify lead placementPerformed By: #### 85800, 52246, 95359 ####[facility] [facility] [place] [address], [facility] CENTERCB W/DIFFon 72-52-8863RTJ IMM GRANS0.0 10*3/uLNormal 0.0-0.2The [facility] CenterComment on above:Order Comment: No: Do not add to previous drawPerformed By: #### 97594 #### [facility] [address] [place] [address], USAABS NEUTROPHILS3.8 10*3/uLNormal1.6-7.6The [facility] CenterComment on above:Order Comment: No: Do not add to previous drawPerformed By: #### 97459 #### [facility] [address] [place] [address], USABasophils (Bld) [#/Vol]0.0 10*3/uLNormal0.0-0.2The [facility] CenterComment on above:Order Comment: No: Do not add to previous drawPerformed By: #### 68652 #### [facility] [address] [place] [address], USABasophils/100 WBC (Bld)0.4 %Normal0.0-1.0The [facility] CenterComment on above:Order Comment: No: Do not add to previous drawPerformed By: #### 49427 #### [facility] [address] [facility] [address], USAEosinophils (Bld) [#/Vol]0.3 10*3/uLNormal0.0-0.5The [facility] CenterComment on above:Order Comment: No: Do not add to previous drawPerformed By: #### 07916 #### [facility] [address] [facility] [address], USAEosinophils/100 WBC (Bld)5.9 %Normal0.0-6.0The [facility] CenterComment on above:Order Comment: No: Do not add to previous drawPerformed By: #### 50147 #### [facility] [address] [place] [address], USAErythrocyte distribution width (RBC) [Ratio]20.8 %High 11.5-15.0The [facility] CenterComment on above:Order Comment: No: Do not add to previous drawPerformed By: #### 36560 #### [facility] [address] [place] [address], USAHematocrit (Bld) [Volume fraction]31.0 %Low39.0-50.0The [facility] CenterComment on above:Order Comment: No: Do not add to previous drawPerformed By: #### 43288 #### [facility] [address] [place] [address], USAHemoglobin (Bld) [Mass/Vol]9.2 g/dLLow13.0-17.0The [facility] CenterComment on above:Order Comment: No: Do not add to previous drawPerformed By: #### 74285 #### [facility] [address] [place] [address], USAIMMATURE GRANS0.6 %Normal0.0-1.0The [facility] CenterComment on above:Order Comment: No: Do not add to previous draw Performed By: #### 65126 #### [facility] [address] [place] [address], USALymphocytes (Bld) [#/Vol]0.6 10*3/uLLow1.2-4.0The [facility] CenterComment on above:Order Comment: No: Do not add to previous drawPerformed By: #### 71293 #### [facility] [address] [place] [id number], USALymphocytes/100 WBC (Bld)11.3 %Low20.0-45.0The [facility] CenterComment on above:Order Comment: No: Do not add to previous drawPerformed By: #### 23336 #### [facility] [address] [place] [address], USAMCH (RBC) [Entitic mass]24.0 pgLow27.0-33.0The [facility] CenterComment on above:Order Comment: No: Do not add to previous drawPerformed By: #### 03966 #### [facility] [address] [place] [id number], [facility] CENTERMCHC (RBC) [Mass/Vol]29.7 g/dLLow32.0-35.0The [facility] CenterComment on above:Order Comment: No: Do not add to previous drawPerformed By: #### 39659 #### [facility] [address] [place] [address], [facility] CENTERMCV (RBC) [Entitic vol]80.9 fLLow82.0-98.0The [facility] CenterComment on above:Order Comment: No: Do not add to previous drawPerformed By: #### 07286 #### [facility] [address] [place] [address], USAMonocytes (Bld) [#/Vol]0.4 10*3/uLNormal0.1-1.0The [facility] CenterComment on above:Order Comment: No: Do not add to previous drawPerformed By: #### 55718 #### [facility] [address] [place] [address], USAMONOS8.2 %Normal5.0-12.0The [facility] CenterComment on above:Order Comment: No: Do not add to previous drawPerformed By: #### 43166 #### [facility] [address] [place] [address], USANeutrophils/100 WBC (Bld)73.6 %High40.0-72.0The [facility] CenterComment on above:Order Comment: No: Do not add to previous drawPerformed By: #### 03917 #### [facility] [address] [place] [address], USANucleated RBC/100 WBC (Bld) [Ratio]0 %Normal0-0The [facility] CenterComment on above:Order Comment: No: Do not add to previous drawPerformed By: #### 24278 #### [facility] [address] [place] [address], USAPLAT [id number] 10*3/iBBtq671-366Baz [facility] CenterComment on above:Order Comment: No: Do not add to previous draw Performed By: #### 08882 #### [facility] [address] [place] [address], USARBC (Bld) [#/Vol]3.83 10*6/uLLow4.20-5.70The [facility] CenterComment on above:Order Comment: No: Do not add to previous drawPerformed By: #### 20585 #### [facility] [address] [place] [address], USAWBC (Bld) [#/Vol]5.22 10*3/uLNormal4.00-10.60The [facility] CenterComment on above:Order Comment: No: Do not add to previous drawPerformed By: #### 94030 #### [facility] [address] [place] [address], [facility] CENTERMAGNESIUM BLOODon 49-55-7733Adabanosy [Mass/Vol]2.0 mg/dL Normal1.9-2.7The [facility] CenterComment on above:Order Comment: Check Pacemaker/AICD Lead Position, Chest X-ray PA \EANDE\ LAT in Dept ;DO NOT lift affected arm above shoulder. S/P pacemaker/ICD implant. Verify lead placementPerformed By: #### 47132, 77662, 47679 ####[facility] [place] [address], [facility] CENTERPHOSPHORUS BLOODon 09-09-2770Yxedircte [Mass/Vol]2.2 mg/dLLow2.5-5.0The [facility] CenterComment on above:Order Comment: Check Pacemaker/AICD Lead Position, Chest X-ray PA \EANDE\ LAT in Dept ;DO NOT lift affected arm above shoulder. S/P pacemaker/ICD implant. Verify lead placementPerformed By: #### 92615, 36303, 70206 ####[facility] [place] [address], USABASIC METABOLIC PANELon 62-48-9124Nbybvlf [Mass/Vol]7.8 mg/dLLow8.6-10.3The [facility] CenterComment on above:Order Comment: No: Do not add to previous drawPerformed By: #### 24108 #### [facility] [address] [place] [address], USAChloride [Moles/Vol]98 mmol/FXlsflx69-551Taq [facility] CenterComment on above:Order Comment: No: Do not add to previous drawPerformed By: #### 52728 #### [facility] [address] [place] [address], USACO2 [Moles/Vol]29 mmol/YJxzirp62-97Uvq [facility] CenterComment on above:Order Comment: No: Do not add to previous draw Performed By: #### 49962 #### [facility] [address] [place] [address], USACreatinine [Mass/Vol]2.26 mg/dLHigh0.70-1.30The [facility] CenterComment on above:Order Comment: No: Do not add to previous drawPerformed By: #### 51011 #### [facility] [address] [place] [address], ZWZMAZT52 ml/min/1.73sq mAbnormal>60The [facility] CenterComment on above:Order Comment: No: Do not add to previous draw Result Comment: The [facility]'s estimated glomerular filtration rate (eGFR) [...] not disproportionately affect any one group of individuals.Performed By: #### 03427 #### [facility] [address] [place] [address], USAGlucose [Mass/Vol]91 mg/dXMwhhom92-590Mwx [facility] CenterComment on above:Order Comment: No: Do not add to previous drawPerformed By: #### 94449 #### [facility] [address] [place] [address], USAPotassium [Moles/Vol]3.5 mmol/LNormal3.5-5.1The [facility] CenterComment on above:Order Comment: No: Do not add to previous drawPerformed By: #### 21704 #### [facility] [address] [place] [address], USASodium [Moles/Vol]135 mmol/VNwn688-671Sub [facility] CenterComment on above:Order Comment: No: Do not add to previous drawPerformed By: #### 09266 #### [facility] [address] [place] [address], USAUrea nitrogen [Mass/Vol]46 mg/dLHigh7-25The [facility] CenterComment on above:Order Comment: No: Do not add to previous drawPerformed By: #### 95790 #### [facility] [address] [place] [address], USACBC COMPLETE BLOOD COUNTon 97-28-2796Hinxrbrkslh distribution width (RBC) [Ratio]20.4 %High11.5-15.0The [facility] CenterComment on above:Order Comment: No: Do not add to previous draw Performed By: #### 43394 #### [facility] [address] [place] [address], USAHematocrit (Bld) [Volume fraction]29.9 %Low39.0-50.0The [facility] CenterComment on above:Order Comment: No: Do not add to previous drawPerformed By: #### 24076 #### [facility] [address] [place] [address], USAHemoglobin (Bld) [Mass/Vol]8.9 g/dLLow13.0-17.0The [facility] CenterComment on above:Order Comment: No: Do not add to previous drawPerformed By: #### 36403 #### [facility] [address] [place] [address], [facility] CENTERMCH (RBC) [Entitic mass]24.1 pgLow27.0-33.0The [facility] CenterComment on above:Order Comment: No: Do not add to previous drawPerformed By: #### 35911 #### [facility] [address] [place] [address], [facility] CENTERMCHC (RBC) [Mass/Vol]29.8 g/dLLow32.0-35.0The [facility] CenterComment on above:Order Comment: No: Do not add to previous drawPerformed By: #### 26268 #### [facility] [address] [place] [address], [facility] CENTERMCV (RBC) [Entitic vol]80.8 fLLow82.0-98.0The [facility] CenterComment on above:Order Comment: No: Do not add to previous drawPerformed By: #### 99162 #### [facility] [address] [place] [address], USANucleated RBC/100 WBC (Bld) [Ratio]0 %Normal0-0The [facility] CenterComment on above:Order Comment: No: Do not add to previous drawPerformed By: #### 20116 #### [facility] [address] [place] [address], USAPLAT DTH684 10*3/nZUnu763-465Iuw [facility] CenterComment on above:Order Comment: No: Do not add to previous draw Performed By: #### 77492 #### [facility] [address] [place] [address], USARBC (Bld) [#/Vol]3.70 10*6/uLLow4.20-5.70The [facility] CenterComment on above:Order Comment: No: Do not add to previous drawPerformed By: #### 07897 #### [facility] [address] [place] [address], [facility] CENTERWBC (Bld) [#/Vol]4.68 10*3/uLNormal4.00-10.60The [facility] CenterComment on above:Order Comment: No: Do not add to previous drawPerformed By: #### 73113 #### [facility] [address] [place] [address], USAMAGNESIUM BLOODon 27-45-5343Scabwyqfu [Mass/Vol]2.0 mg/dL Normal1.9-2.7The [facility] CenterComment on above:Order Comment: No: Do not add to previous drawPerformed By: #### 27361 #### [facility] [address] [place] [address], USAPHOSPHORUS BLOODon 83-12-0629Oefusfehy [Mass/Vol]2.5 mg/dL Normal2.5-5.0The [facility] CenterComment on above:Order Comment: No: Do not add to previous drawPerformed By: #### 91047 #### [facility] [address] [place] [address], USABASIC METABOLIC PANELon 60-24-6530Aqtsslv [Mass/Vol]8.0 mg/dLLow8.6-10.3The [facility] CenterComment on above:Order Comment: Check Pacemaker/AICD Lead Position, Chest X-ray PA \EANDE\ LAT in Dept ;DO NOT lift affected arm above shoulder. S/P pacemaker/ICD implant. Verify lead placementPerformed By: #### 87893, 44299, 37181 ####[facility] [place] [address], USAChloride [Moles/Vol]99 mmol/FFesctd98-448Uqk [facility] CenterComment on above:Order Comment: Check Pacemaker/AICD Lead Position, Chest X-ray PA \EANDE\ LAT in Dept ;DO NOT lift affected arm above shoulder. S/P pacemaker/ICD implant. Verify lead placementPerformed By: #### 19955, 97073, 63405 ####[facility] [place] [address], USACO2 [Moles/Vol]31 mmol/L Rskmkh77-03Gos [facility] CenterComment on above:Order Comment: Check Pacemaker/AICD Lead Position, Chest X-ray PA \EANDE\ LAT in Dept ;DO NOT lift affected arm above shoulder. S/P pacemaker/ICD implant. Verify lead placementPerformed By: #### 63468, 47311, 46096 ####[facility] [facility] [address], USACreatinine [Mass/Vol]2.48 mg/dLHigh0.70-1.30The [facility] CenterComment on above:Order Comment: Check Pacemaker/AICD Lead Position, Chest X-ray PA \EANDE\ LAT in Dept ;DO NOT lift affected arm above shoulder. S/P pacemaker/ICD implant. Verify lead placementPerformed By: #### 11921, 31667, 03363 ####[facility] [place] [address], NAXWFBH58 ml/min/1.73sq m Abnormal>60The [facility] CenterComment on above:Order Comment: Check Pacemaker/AICD Lead Position, Chest X-ray PA \EANDE\ LAT in Dept ;DO NOT lift affected arm above shoulder. S/P pacemaker/ICD implant. Verify lead placementResult Comment: [facility]'s estimated glomerular filtration rate (eGFR) [...] not disproportionately affect any one group of individuals.Performed By: #### 56340, 06382, 80911 ####[facility] [facility] [place] [address], [facility] CENTERGlucose [Mass/Vol] 83 mg/aFTzcjsn42-223Jra [facility] CenterComment on above: Order Comment: Check Pacemaker/AICD Lead Position, Chest X-ray PA \EANDE\ LAT in Dept ;DO NOT lift affected arm above shoulder. S/P pacemaker/ICD implant. Verify lead placementPerformed By: #### 08055, 97419, 86165 ####[facility] [facility] [place] [address], [facility] CENTERPotassium [Moles/Vol]3.5 mmol/LNormal3.5-5.1The [facility] CenterComment on above:Order Comment: Check Pacemaker/AICD Lead Position, Chest X-ray PA \EANDE\ LAT in Dept ;DO NOT lift affected arm above shoulder. S/P pacemaker/ICD implant. Verify lead placementPerformed By: #### 66174, 51072, 14777 ####[facility] [facility] [place] [address], [facility] Sodium [Moles/Vol]137 mmol/ZGvawpr490-156Azk [facility] Comment on above:Order Comment: Check Pacemaker/AICD Lead Position, Chest X-ray PA \EANDE\ LAT in Dept ;DO NOT lift affected arm above shoulder. S/P pacemaker/ICD implant. Verify lead placementPerformed By: #### 59020, 09676, 23680 ####[facility] [place] [address], USAUrea nitrogen [Mass/Vol]49 mg/dLHigh7-25The [facility] CenterComment on above:Order Comment: Check Pacemaker/AICD Lead Position, Chest X-ray PA \EANDE\ LAT in Dept ;DO NOT lift affected arm above shoulder. S/P pacemaker/ICD implant. Verify lead placementPerformed By: #### 06390, 65309, 16641 ####[facility] [place] [address], USACBC COMPLETE BLOOD COUNTon 92-59-1577Rigpkluupia distribution width (RBC) [Ratio]20.6 %High11.5-15.0The [facility] CenterComment on above:Order Comment: No: Do not add to previous draw Performed By: #### 20827 #### [facility] [address] [place] [address], USAHematocrit (Bld) [Volume fraction]28.9 %Low39.0-50.0The [facility] CenterComment on above:Order Comment: No: Do not add to previous drawPerformed By: #### 76527 #### [facility] [address] [place] [address], [facility]ENTERHemoglobin (Bld) [Mass/Vol]8.6 g/dLLow13.0-17.0The [facility] CenterComment on above:Order Comment: No: Do not add to previous drawPerformed By: #### 45637 #### [facility] [address] [place] [address], [facility]ENTERMCH (RBC) [Entitic mass]24.1 pgLow27.0-33.0The [facility] CenterComment on above:Order Comment: No: Do not add to previous drawPerformed By: #### 80359 #### [facility] [address] [place] [address], USAMCHC (RBC) [Mass/Vol]29.8 g/dLLow32.0-35.0The [facility] CenterComment on above:Order Comment: No: Do not add to previous drawPerformed By: #### 62833 #### [facility] [address] [place] [address], [facility]ENTERMCV (RBC) [Entitic vol]81.0 fLLow82.0-98.0The [facility] CenterComment on above:Order Comment: No: Do not add to previous drawPerformed By: #### 80500 #### [facility] [address] [place] [address], USANucleated RBC/100 WBC (Bld) [Ratio]0 %Normal0-0The [facility] CenterComment on above:Order Comment: No: Do not add to previous drawPerformed By: #### 40355 #### [facility] [address] [place] [address], USAPLAT UPZ534 10*3/bDYsl767-337Fhn [facility] CenterComment on above:Order Comment: No: Do not add to previous draw Performed By: #### 57944 #### [facility] [address] [place] [address], USARBC (Bld) [#/Vol]3.57 10*6/uLLow4.20-5.70The [facility] CenterComment on above:Order Comment: No: Do not add to previous drawPerformed By: #### 68405 #### [facility] [address] [place] [address], USAWBC (Bld) [#/Vol]4.33 10*3/uLNormal4.00-10.60The [facility] CenterComment on above:Order Comment: No: Do not add to previous drawPerformed By: #### 36518 #### [facility] [address] [place] [address], USACOOXIMETRYon 97-65-0389UNCO7 %NormalThe [facility] CenterComment on above:Performed By: #### 27335 #### [facility] [address] [place] [address], USAMETHB1 %NormalThe [facility] Comment on above:Performed By: #### 86565 #### [facility] [address] [place] [address], USAOxygen saturation in Blood71.0 %Hwbutd57.0-75.0The [facility] CenterComment on above:Performed By: #### 73896 #### [facility] [address] [facility] [place] [address], USATHB9.0 g/dLNormalThe [facility] Comment on above:Performed By: #### 64075 #### [facility] [address] [place] [address], USAMAGNESIUM BLOODon 37-86-8620Ujmiueips [Mass/Vol]2.1 mg/dL Normal1.9-2.7The [facility] CenterComment on above:Order Comment: Check Pacemaker/AICD Lead Position, Chest X-ray PA \EANDE\ LAT in Dept ;DO NOT lift affected arm above shoulder. S/P pacemaker/ICD implant. Verify lead placementPerformed By: #### 62461, 35086, 29321 ####[facility] [place] [address], USAPHOSPHORUS BLOODon 34-77-7395Qcgwhyxfc [Mass/Vol]3.6 mg/dLNormal2.5-5.0The [facility] CenterComment on above:Order Comment: Check Pacemaker/AICD Lead Position, Chest X-ray PA \EANDE\ LAT in Dept ;DO NOT lift affected arm above shoulder. S/P pacemaker/ICD implant. Verify lead placementPerformed By: #### 33451, 46282, 53238 ####[facility] [facility] [place] [address], USAPORTABLE CHEST 1 VIEWon [id number] CHEST 1 VIEW [facility] Department of Radiology [address] [place] [address] Patient Name: MAN PATEL : 1950 Sex: M Age: Race: White Pt. Location: [place] [address] Patient Status: I Ordered Date: 05/01/2022 10:35:00 [...] obtained. COMPARISON: Chest radiograph dated 08/01/2021 FINDINGS: Clarence-Eleazar catheter placed via right internal jugular approach has tip in the right pulmonary artery. Dual-chamber pacemaker placed left subclavian approach. Moderate cardiomegaly. Moderate CHF. No pleural effusion. No pneumothorax. IMPRESSION: Moderate cardiomegaly. Moderate CHF. Electronically signed: Aldo Montana. Transcribed by: [email or web address], User Resident: Electronically Signed by: ALDO MONTANA @ 05/01/2022 11:16 AMNBrown Memorial HospitalComment on above:Order Comment: Check Line Position *BLOOD CULTUREon 04-30-2022*BLOOD CULTUREClinical Report: (D) Specimen: BLOOD CULTURE Collected: 04/29/2022 23:47 Status: Final Last Updated: 05/05/2022 06:59 CULT RES (Final) No Growth Day 5[facility] DublinComment on above: Performed By: #### 31641 ####[facility] [address], [place]*BLOOD CULTUREClinical Report: (D) Specimen: BLOOD CULTURE Collected: 04/29/2022 23:43 Status: Final Last Updated: 05/05/2022 06:59 CULT RES (Final) No Growth Day 5[facility] - DublinComment on above: Performed By: #### 04529 #### [facility] [address] [place] [address], USABASIC METABOLIC PANELon [id number] [Mass/Vol]8.0 mg/dLLow8.6-10.3The [facility] CenterComment on above:Order Comment: No: Do not add to previous drawPerformed By: #### 48685, 21468, 91324, 03179 ####[facility] [place] [address], USAChloride [Moles/Vol]100 mmol/HYkomxt21-523Nzd [facility] CenterComment on above:Order Comment: No: Do not add to previous drawPerformed By: #### 20468, 22329, 54108, 91677 ####[facility] [place] [address], USACO2 [Moles/Vol]31 mmol/LJgdbym91-75Clo [facility] CenterComment on above:Order Comment: No: Do not add to previous drawPerformed By: #### 86230, 72442, 99483, 12253 ####[facility] [place] [address], USACreatinine [Mass/Vol]2.53 mg/dLHigh0.70-1.30The [facility] CenterComment on above:Order Comment: No: Do not add to previous drawPerformed By: #### 51946, 97573, 98177, 14809 ####[facility] [place] [address], TJAIFQJ41 ml/min/1.73sq mAbnormal>60The [facility] CenterComment on above:Order Comment: No: Do not add to previous drawResult Comment: The [facility]'s estimated glomerular filtration rate (eGFR) [...] not disproportionately affect any one group of individuals.Performed By: #### 73573, 79476, 51605, 90011 ####[facility] [facility] [place] [address], [facility] Glucose [Mass/Vol]94 mg/lLBwqvkf74-355Vst [facility] Comment on above:Order Comment: No: Do not add to previous drawPerformed By: #### 88885, 64077, 37948, 63419 ####[facility] [place] [address], USAPotassium [Moles/Vol]3.5 mmol/LNormal3.5-5.1 The [facility] CenterComment on above:Order Comment: No: Do not add to previous drawPerformed By: #### 66316, 32928, 79063, 55105 ####[facility] [facility] [place] [address], [facility] Sodium [Moles/Vol]139 mmol/ODoorrl030-999Bdb [facility] Comment on above:Order Comment: No: Do not add to previous drawPerformed By: #### 15277, 45058, 70250, 69617 ####[facility] [place] [address], USAUrea nitrogen [Mass/Vol]49 mg/dLHigh7-25The [facility] CenterComment on above:Order Comment: No: Do not add to previous drawPerformed By: #### 55411, 07215, 10179, 49557 ####[facility] [place] [address], USACBC COMPLETE BLOOD COUNTon 54-70-9796Bqwkhtbfyxe distribution width (RBC) [Ratio]20.8 %High 11.5-15.0The [facility] CenterComment on above:Order Comment: No: Do not add to previous drawPerformed By: #### 79681 #### [facility] [address] [place] [address], USAHematocrit (Bld) [Volume fraction]28.3 %Low39.0-50.0The [facility] CenterComment on above:Order Comment: No: Do not add to previous drawPerformed By: #### 82428 #### [facility] [address] [place] [address], USAHemoglobin (Bld) [Mass/Vol]8.5 g/dLLow13.0-17.0The [facility] CenterComment on above:Order Comment: No: Do not add to previous drawPerformed By: #### 48640 #### [facility] [address] [place] [address], USAMCH (RBC) [Entitic mass]24.3 pgLow27.0-33.0The [facility] CenterComment on above:Order Comment: No: Do not add to previous drawPerformed By: #### 75193 #### [facility] [address] [place] [address], USAMCHC (RBC) [Mass/Vol]30.0 g/dLLow32.0-35.0The [facility] CenterComment on above:Order Comment: No: Do not add to previous drawPerformed By: #### 74344 #### [facility] [address] [place] [address], USAMCV (RBC) [Entitic vol]80.9 fLLow82.0-98.0The [facility] CenterComment on above:Order Comment: No: Do not add to previous drawPerformed By: #### 53391 #### [facility] [address] [place] [address], USANucleated RBC/100 WBC (Bld) [Ratio]0 %Normal0-0The [facility] CenterComment on above:Order Comment: No: Do not add to previous drawPerformed By: #### 86364 #### [facility] [address] [place] [address], USAPLAT SFM148 10*3/pVRdn674-989Rfv [facility] CenterComment on above:Order Comment: No: Do not add to previous draw Performed By: #### 10121 #### [facility] [address] [place] [address], USARBC (Bld) [#/Vol]3.50 10*6/uLLow4.20-5.70The [facility] CenterComment on above:Order Comment: No: Do not add to previous drawPerformed By: #### 81431 #### [facility] [address] [place] [address], USAWBC (Bld) [#/Vol]4.28 10*3/uLNormal4.00-10.60The [facility] CenterComment on above:Order Comment: No: Do not add to previous drawPerformed By: #### 85004 #### [facility] [address] [place] [address], USACOOXIMETRYon 85-01-8154FXUP9 %NormalThe [facility] CenterComment on above:Performed By: #### 12097 #### [facility] [address] [place] [address], USAMETHB1 %NormalThe [facility] Comment on above:Performed By: #### 02970 #### [facility] [address] [place] [address], USAOxygen saturation in Blood69.0 %Uxaeqg93.0-75.0The [facility] CenterComment on above:Performed By: #### 84359 #### [facility] [address] [place] [address], YCFIGG29.0 g/dLNormalThe [facility] Comment on above:Performed By: #### 89081 #### [facility] [address] [place] [address], USACardiovascular Lab Reporton [id number] Lab ReportUnChillicothe VA Medical Center Patient Name: [facility] Man Ace MR #: [id number] Department of Physician: Fidel Flowers M.Kristina Division of Service Date: 04/29/2022 Cardiology Birthdate: 1950 Adult Cardiovascular Room #: KASANDRA [id number] [address] [address] Cardiovascular Laboratory Report CLINICAL PRESENTATION: The patient is a 72-year-old male with past medical history significant for CAD, status post CABG, heart failure with EF 40%, CKD with acute kidney injury, atrial fibrillation on Eliquis, pacemaker, and hypertension. The patient was admitted with shortness of breath and lower extremity edema concerning for saurr-oj-iqkmtha systolic heart failure. He has worsening renal [...] Given worsening renal function, we will place Clarence-Eleazar catheter for invasive hemodynamic monitoring in the ICU. The patient will likely require milrinone inotrope therapy. 2. Remainder of plan per Cardiology Service. 3. There was tracing of severe V-waves, which could be seen in mitral regurgitation. Correlation with echocardiogram is recommended. PROCEDURES: Right heart catheterization, ultrasound guidance for vascular access. INDICATION: Krygg-bh-zcgdwfy systolic heart failure. PROCEDURE DESCRIPTION: The patient [...] ultrasound guidance and micropuncture access technique, a 6-Saudi Arabian sheath was placed in the right internal [...] renal function, we agreed to place a Clarence-Eleazar catheter for monitoring in the ICU. Next, using a wire, I exchanged the sheath to an 8-Saudi Arabian Cordis sheath. This was sutured to the skin. Next, I advanced Alarcon VIP MD SENIOR RESEARCH SCIENTIST Clarence-Eleazar catheter to the pulmonary artery position. The [...] Red M.D. Date Trans: 04/30/2022 10:29 A/surekha DN_JN:[id number] cc: Li Cintron M.D. Heart Failure/ Transplant Mailstop [address] [facility] [address]EfixajIkj [facility] CenterMAGNESIUM BLOODon [id number] [Mass/Vol]2.3 mg/dLNormal1.9-2.7The [facility] CenterComment on above:Order Comment: No: Do not add to previous draw Performed By: #### 91199, 77326, 20684, 54803 ####[facility] [facility] [place] [address], USAPHOSPHORUS BLOODon 04-30-2022 Phosphate [Mass/Vol]4.1 mg/dLNormal2.5-5.0The [facility] CenterComment on above:Performed By: #### 55383, 07044, 67127, 09433 ####[facility] [place] [address], [place] URIC ACID BLOODon 36-84-1558Izenk [Mass/Vol]13.5 mg/dLHigh4.4-7.6The [facility] CenterComment on above:Performed By: #### 67913, 03706, 34898, 34564 ####[facility] [facility] [place] [address], USABASIC METABOLIC PANELon 96-75-7419Xqxcvap [Mass/Vol]8.4 mg/dLLow 8.6-10.3The [facility] CenterComment on above:Order Comment: No: Do not add to previous drawPerformed By: #### 48474 #### [facility] [address] [place] [address], USAChloride [Moles/Vol]100 mmol/BLoggzz93-264Gmx [facility] CenterComment on above:Order Comment: No: Do not add to previous drawPerformed By: #### 58503 #### [facility] [address] [place] [address], USACO2 [Moles/Vol]30 mmol/RXvtdbe21-66Com [facility] CenterComment on above:Order Comment: No: Do not add to previous draw Performed By: #### 06460 #### [facility] [address] [place] [address], USACreatinine [Mass/Vol]2.09 mg/dLHigh0.70-1.30The [facility] CenterComment on above:Order Comment: No: Do not add to previous drawPerformed By: #### 24118 #### [facility] [address] [place] [address], OUAZRTN61 ml/min/1.73sq mAbnormal>60The [facility] CenterComment on above:Order Comment: No: Do not add to previous draw Result Comment: The [facility]'s estimated glomerular filtration rate (eGFR) [...] not disproportionately affect any one group of individuals.Performed By: #### 64905 #### [facility] [address] [place] [address], USAGlucose [Mass/Vol]96 mg/iAYdgnmw14-592Fcp [facility] CenterComment on above:Order Comment: No: Do not add to previous drawPerformed By: #### 36346 #### [facility] [address] [place] [address], USAPotassium [Moles/Vol]4.0 mmol/LNormal3.5-5.1The [facility] CenterComment on above:Order Comment: No: Do not add to previous drawPerformed By: #### 04868 #### [facility] [address] [place] [address], USASodium [Moles/Vol]138 mmol/QAaguib013-146Jqw [facility] CenterComment on above:Order Comment: No: Do not add to previous drawPerformed By: #### 62968 #### [facility] [address] [facility] [place] [address], USAUrea nitrogen [Mass/Vol]48 mg/dLHigh7-25The [facility] CenterComment on above:Order Comment: No: Do not add to previous drawPerformed By: #### 06460 #### [facility] [address] [facility] [address], USACBC COMPLETE BLOOD COUNTon 69-49-8786Kebigjxduxg distribution width (RBC) [Ratio]20.6 %High11.5-15.0The [facility] CenterComment on above:Order Comment: No: Do not add to previous draw Performed By: #### 30926 ####[facility] [facility] [address], USAHematocrit (Bld) [Volume fraction]31.0 %Low39.0-50.0The [facility] CenterComment on above:Order Comment: No: Do not add to previous drawPerformed By: #### 91754 ####[facility] [facility] [address], USAHemoglobin (Bld) [Mass/Vol]8.9 g/dLLow13.0-17.0The [facility] CenterComment on above:Order Comment: No: Do not add to previous drawPerformed By: #### 41673 ####[facility] [facility] [address], [facility]ENTERMCH (RBC) [Entitic mass]23.1 pgLow27.0-33.0The [facility] CenterComment on above:Order Comment: No: Do not add to previous drawPerformed By: #### 66703 ####[facility] [place], [place] [address] [address], [facility] MCHC (RBC) [Mass/Vol]28.7 g/dLLow32.0-35.0The [facility] CenterComment on above:Order Comment: No: Do not add to previous drawPerformed By: #### 55582 ####[address] [place] [address], [facility] CENTERMCV (RBC) [Entitic vol]80.5 fLLow82.0-98.0The [facility] CenterComment on above:Order Comment: No: Do not add to previous draw Performed By: #### 79005 ####[address] [place] [address], [facility] CENTERNucleated RBC/100 WBC (Bld) [Ratio]0 %Normal0-0The [facility] CenterComment on above:Order Comment: No: Do not add to previous drawPerformed By: #### 03840 ####[address] [place] [address], USAPLAT MKU906 10*3/dMTxo551-888Foo [facility] CenterComment on above:Order Comment: No: Do not add to previous drawPerformed By: #### 88184 ####[address] [place] [address], [facility] CENTERRBC (Bld) [#/Vol]3.85 10*6/uLLow 4.20-5.70The [facility] CenterComment on above:Order Comment: No: Do not add to previous drawPerformed By: #### 65390 ####[address] [place] [address], USAWBC (Bld) [#/Vol]5.00 10*3/uLNormal4.00-10.60The [facility] CenterComment on above: Order Comment: No: Do not add to previous drawPerformed By: #### 21957 ####[facility] [place] [address], [place] COOXIMETRYon 95-73-6782TICD1 %NormalThe [facility] Comment on above:Performed By: #### 61603 #### [facility] [address] [place] [address], USAMETHB1 %NormalThe [facility] Comment on above:Performed By: #### 47016 #### [facility] [address] [place] [address], USAOxygen saturation in Blood74.0 %Kybghi41.0-75.0The [facility] CenterComment on above:Performed By: #### 42313 #### [facility] [address] [place] [address], USATHB8.4 g/dLNormalThe [facility] Comment on above:Performed By: #### 08241 #### [facility] [address] [place] [address], USAMAGNESIUM BLOODon 64-59-8475Vyczjjjep [Mass/Vol]2.3 mg/dL Normal1.9-2.7The [facility] CenterComment on above:Order Comment: No: Do not add to previous drawPerformed By: #### 00803 #### [facility] [address] [place] [address], USABASIC METABOLIC PANELon 46-59-7332Ufzvdrk [Mass/Vol]8.3 mg/dLLow8.6-10.3The [facility] CenterComment on above:Order Comment: No: Do not add to previous drawPerformed By: #### 59222, 63812, 31788 ####[facility] [place] [address], [place] Chloride [Moles/Vol]100 mmol/YXvkane38-422Mzl [facility] CenterComment on above:Order Comment: No: Do not add to previous drawPerformed By: #### 11960, 58493, 58460 ####[facility] [place] [address], USACO2 [Moles/Vol]29 mmol/VNowxmb87-51Ozz [facility] CenterComment on above:Order Comment: No: Do not add to previous drawPerformed By: #### 86864, 85593, 11496 ####[facility] [place] [address], USACreatinine [Mass/Vol]2.51 mg/dLHigh0.70-1.30The [facility] CenterComment on above:Order Comment: No: Do not add to previous drawPerformed By: #### 34760, 65567, 42973 ####[facility] [place] [address], VHBPLWW82 ml/min/1.73sq mAbnormal>60The [facility] CenterComment on above:Order Comment: No: Do not add to previous drawResult Comment: The [facility]'s estimated glomerular filtration rate (eGFR) [...] not disproportionately affect any one group of individuals.Performed By: #### 01645, 07902, 11180 ####[facility] [place] [address], USAGlucose [Mass/Vol] 98 mg/aLSgmwbt08-107Rzt [facility] CenterComment on above: Order Comment: No: Do not add to previous drawPerformed By: #### 48489, 66456, 59688 ####[facility] [place] [address], USAPotassium [Moles/Vol]3.9 mmol/LNormal3.5-5.1The [facility] CenterComment on above:Order Comment: No: Do not add to previous draw Performed By: #### [id number], 43652, [id number] ####[facility] [place] [address], USASodium [Moles/Vol]138 mmol/LNormal 136-145The [facility] CenterComment on above:Order Comment: No: Do not add to previous drawPerformed By: #### 48160, 90532, 69490 ####[facility] [place] [address], [place] Urea nitrogen [Mass/Vol]55 mg/dLHigh7-25The [facility] Comment on above:Order Comment: No: Do not add to previous drawPerformed By: #### 51592, 26457, 52931 ####[facility] [address] [address], USACBC COMPLETE BLOOD COUNTon 85-66-5237Fopbbbliwmk distribution width (RBC) [Ratio]20.2 %High11.5-15.0The [facility] CenterComment on above:Order Comment: No: Do not add to previous draw Performed By: #### [id number] ####[facility] [place] [address], USAHematocrit (Bld) [Volume fraction]28.9 %Low39.0-50.0The [facility] CenterComment on above:Order Comment: No: Do not add to previous drawPerformed By: #### [id number] ####[facility] [facility] [place] [address], [facility] CENTERHemoglobin (Bld) [Mass/Vol]8.7 g/dLLow13.0-17.0The [facility] CenterComment on above:Order Comment: No: Do not add to previous drawPerformed By: #### [id number] ####[facility] [facility] [place] [address], [facility] CENTERMCH (RBC) [Entitic mass]24.0 pgLow27.0-33.0The [facility] CenterComment on above:Order Comment: No: Do not add to previous drawPerformed By: #### [id number] ####[facility] [facility] [place] [address], [facility] MCHC (RBC) [Mass/Vol]30.1 g/dLLow32.0-35.0The [facility] CenterComment on above:Order Comment: No: Do not add to previous drawPerformed By: #### [id number] ####[facility] [facility] [place] [address], [facility] CENTERMCV (RBC) [Entitic vol]79.6 fLLow82.0-98.0The [facility] CenterComment on above:Order Comment: No: Do not add to previous draw Performed By: #### [id number] ####[facility] [facility] [place] [address], [facility] CENTERNucleated RBC/100 WBC (Bld) [Ratio]0 %Normal0-0The [facility] CenterComment on above:Order Comment: No: Do not add to previous drawPerformed By: #### 85287 ####[facility] [facility] [place] [address], USAPLAT [id number] 10*3/sMWgajyn071-718 The [facility] CenterComment on above:Order Comment: No: Do not add to previous drawPerformed By: #### [id number] ####[facility] [place] [address], USARBC (Bld) [#/Vol]3.63 10*6/uLLow4.20-5.70The [facility] CenterComment on above:Order Comment: No: Do not add to previous drawPerformed By: #### [id number] ####[facility] [place] [address], USAWBC (Bld) [#/Vol]6.21 10*3/uLNormal4.00-10.60The [facility] Comment on above:Order Comment: No: Do not add to previous drawPerformed By: #### [id number] ####[facility] [place] [address], USALIPID PROFILEon 48-59-5989Zdppsmgnghy [Mass/Vol]92 mg/hEJeo465-724Jxr [facility] CenterComment on above:Order Comment: Yes: Add to Previous draw if ableResult Comment: CHOLESTEROL REFERENCE RANGE: 20 YEARS AND OLDER CARDIOVASCULAR RISK Less than 200 mg/dl Low Risk 200 to 239 mg/dl Borderline Risk 240 mg/dl and greater High RiskPerformed By: #### 89525, 90152, 84282 ####[facility] [facility] [place] [address], [facility] Cholesterol in HDL [Mass/Vol]37 mg/dXVdxxoo42-94Vkj [facility] CenterComment on above:Order Comment: Yes: Add to Previous draw if ableResult Comment: Slight variation in normal range could be due to gender and/or age. HDL CHOLESTEROL REFERENCE RANGE: 20 years and older Cardiovascular Risk > or =60 mg/dL Desirable 40 TO 59 mg/dL Low Risk <40 mg/dL High RiskPerformed By: #### 03079, 09398, 68013 ####[facility] [address] [address], USACholesterol in LDL [Mass/Vol]47 mg/dLNormal0-130The [facility] CenterComment on above:Order Comment: Yes: Add to Previous draw if ableResult Comment: LDL IS A CALCULATION LDL IS ONLY VALID IF THE TRIG IS LESS THAN 400.Performed By: #### 94627, 12679, 89326 ####[facility] [place] [address], [facility]ENTERCholesterol.total/Cholesterol in HDL [Mass ratio]2.5 {ratio}Normal .0-4.5The [facility] CenterComment on above:Order Comment: Yes: Add to Previous draw if ablePerformed By: #### 82517, 86463, 78080 ####[facility] [address] [place] [address], [facility] NON-HDL JHVXWGVNOFK50 mg/dLNoalThe [facility] CenterComment on above:Order Comment: Yes: Add to Previous draw if ablePerformed By: #### 53339, 83144, 56903 ####[facility] [address] [place] [address], [facility] CENTERTriglyceride [Mass/Vol]40 mg/wIBompad80-007Pyj [facility] CenterComment on above:Order Comment: Yes: Add to Previous draw if ableResult Comment: TRIGLYCERIDE REFERENCE RANGE: 20 YEARS AND OLDER CARDIOVASCULAR RISK LESS THAN 150 mg/dl LOW RISK 150 TO 199 mg/dl BORDERLINE RISK 200 mg/dl AND GREATER HIGH RISKPerformed By: #### 58358, 10259, 34492 ####[facility] [address], [facility] VLDL CHOL8 mg/dLNormal0-40The [facility] CenterComment on above:Order Comment: Yes: Add to Previous draw if ablePerformed By: #### 90346, 51637, 57432 ####[facility] [place] [address], [facility] CENTERMAGNESIUM BLOODon 35-92-8199Qfimwgcxg [Mass/Vol]2.4 mg/dLNormal 1.9-2.7The [facility] CenterComment on above:Order Comment: No: Do not add to previous drawPerformed By: #### 58354, 50565, 92582 ####[facility] [place] [address], [place] BASIC METABOLIC PANELon 28-72-1295Puvrhhl [Mass/Vol]8.4 mg/dLLow8.6-10.3The [facility] CenterComment on above:Order Comment: No: Do not add to previous drawPerformed By: #### 58164 #### [facility] [address] [place] [address], USAChloride [Moles/Vol]100 mmol/UKblhdw66-392Lae [facility] CenterComment on above:Order Comment: No: Do not add to previous drawPerformed By: #### 36679 #### [facility] [address] [place] [address], USACO2 [Moles/Vol]27 mmol/EDbdjoc94-97Tmi [facility] CenterComment on above:Order Comment: No: Do not add to previous draw Performed By: #### 88952 #### [facility] [address] [place] [address], USACreatinine [Mass/Vol]2.46 mg/dLHigh0.70-1.30The [facility] CenterComment on above:Order Comment: No: Do not add to previous drawPerformed By: #### 87170 #### [facility] [address] [place] [address], RDWROYQ20 ml/min/1.73sq mAbnormal>60The [facility] CenterComment on above:Order Comment: No: Do not add to previous draw Result Comment: The [facility]'s estimated glomerular filtration rate (eGFR) [...] not disproportionately affect any one group of individuals.Performed By: #### [id number] #### [facility] [address] [place] [address], USAGlucose [Mass/Vol]96 mg/mDEjuweq97-511Kxu [facility] CenterComment on above:Order Comment: No: Do not add to previous drawPerformed By: #### [id number] #### [facility] [address] [place] [address], USAPotassium [Moles/Vol]3.8 mmol/LNormal3.5-5.1The [facility] CenterComment on above:Order Comment: No: Do not add to previous drawPerformed By: #### 57416 #### [facility] [address] [place] [address], USASodium [Moles/Vol]136 mmol/GVdwxrp108-871Mob [facility] CenterComment on above:Order Comment: No: Do not add to previous drawPerformed By: #### [id number] #### [facility] [address] [place] [address], USAUrea nitrogen [Mass/Vol]57 mg/dLHigh7-25The [facility] CenterComment on above:Order Comment: No: Do not add to previous drawPerformed By: #### [id number] #### [facility] [address] [place] [address], USABASIC METABOLIC PANELon 17-79-2514Cwopvrv [Mass/Vol]8.7 mg/dLNormal8.6-10.3The [facility] CenterComment on above:Order Comment: No: Do not add to previous drawPerformed By: #### 88388 #### [facility] [address] [place] [address], USAChloride [Moles/Vol]100 mmol/JYbzsis21-275Mhp [facility] CenterComment on above:Order Comment: No: Do not add to previous drawPerformed By: #### [id number] #### [facility] [address] [place] [address], USACO2 [Moles/Vol]26 mmol/VPhrfrx71-84Vep [facility] CenterComment on above:Order Comment: No: Do not add to previous draw Performed By: #### 67167 #### [facility] [address] [place] [address], USACreatinine [Mass/Vol]2.63 mg/dLHigh0.70-1.30The [facility] CenterComment on above:Order Comment: No: Do not add to previous drawPerformed By: #### 33397 #### [facility] [address] [place] [address], CIAIFZM66 ml/min/1.73sq mAbnormal>60The [facility] CenterComment on above:Order Comment: No: Do not add to previous draw Result Comment: [facility]'s estimated glomerular filtration rate (eGFR) [...] not disproportionately affect any one group of individuals.Performed By: #### 52584 #### [facility] [address] [place] [address], USAGlucose [Mass/Vol]101 mg/yOAvzx78-239Pcx [facility] CenterComment on above:Order Comment: No: Do not add to previous drawPerformed By: #### [id number] #### [facility] [address] [place] [address], USAPotassium [Moles/Vol]4.3 mmol/LNormal3.5-5.1The [facility] CenterComment on above:Order Comment: No: Do not add to previous drawPerformed By: #### 37351 #### [facility] [address] [place] [address], USASodium [Moles/Vol]136 mmol/ANurgmj493-799Jkz [facility] CenterComment on above:Order Comment: No: Do not add to previous drawPerformed By: #### [id number] #### [facility] [address] [facility] [place] [address], USAUrea nitrogen [Mass/Vol]57 mg/dLHigh7-25The [facility] CenterComment on above:Order Comment: No: Do not add to previous drawPerformed By: #### 54988 #### [facility] [address] [facility] [address], [facility] CENTERCBC W/DIFFon [id number] IMM GRANS0.0 10*3/uLNormal 0.0-0.2The [facility] CenterComment on above:Order Comment: No: Do not add to previous drawPerformed By: #### 48069 #### [facility] [address] [place] [address], USAABS NEUTROPHILS5.2 10*3/uLNormal1.6-7.6The [facility] CenterComment on above:Order Comment: No: Do not add to previous drawPerformed By: #### [id number] #### [facility] [address] [place] [address], USABasophils (Bld) [#/Vol]0.0 10*3/uLNormal0.0-0.2The [facility] CenterComment on above:Order Comment: No: Do not add to previous drawPerformed By: #### 24485 #### [facility] [address] [place] [address], USABasophils/100 WBC (Bld)0.6 %Normal0.0-1.0The [facility] CenterComment on above:Order Comment: No: Do not add to previous drawPerformed By: #### 14522 #### [facility] [address] [place] [address], USAEosinophils (Bld) [#/Vol]0.2 10*3/uLNormal0.0-0.5The [facility] CenterComment on above:Order Comment: No: Do not add to previous drawPerformed By: #### 84859 #### [facility] [address] [place] [address], USAEosinophils/100 WBC (Bld)3.4 %Normal0.0-6.0The [facility] CenterComment on above:Order Comment: No: Do not add to previous drawPerformed By: #### 06501 #### [facility] [address] [place] [address], USAErythrocyte distribution width (RBC) [Ratio]19.9 %High 11.5-15.0The [facility] CenterComment on above:Order Comment: No: Do not add to previous drawPerformed By: #### 62473 #### [facility] [address] [place] [address], USAHematocrit (Bld) [Volume fraction]30.2 %Low39.0-50.0The [facility] CenterComment on above:Order Comment: No: Do not add to previous drawPerformed By: #### 10534 #### [facility] [address] [place] [address], USAHemoglobin (Bld) [Mass/Vol]9.0 g/dLLow13.0-17.0The [facility] CenterComment on above:Order Comment: No: Do not add to previous drawPerformed By: #### 15599 #### [facility] [address] [place] [address], USAIMMATURE GRANS0.2 %Normal0.0-1.0The [facility] CenterComment on above:Order Comment: No: Do not add to previous draw Performed By: #### 95614 #### [facility] [address] [place] [address], USALymphocytes (Bld) [#/Vol]0.4 10*3/uLLow1.2-4.0The [facility] CenterComment on above:Order Comment: No: Do not add to previous drawPerformed By: #### 84108 #### [facility] [address] [place] [address], USALymphocytes/100 WBC (Bld)6.6 %Low20.0-45.0The [facility] CenterComment on above:Order Comment: No: Do not add to previous drawPerformed By: #### 95028 #### [facility] [address] [place] [address], [facility] (RBC) [Entitic mass]23.4 pgLow27.0-33.0The [facility] CenterComment on above:Order Comment: No: Do not add to previous drawPerformed By: #### [id number] #### [facility] [address] [place] [address], [facility]RIGHTHC (RBC) [Mass/Vol]29.8 g/dLLow32.0-35.0The [facility] CenterComment on above:Order Comment: No: Do not add to previous drawPerformed By: #### [id number] #### [facility] [address] [place] [address], [facility]V (RBC) [Entitic vol]78.4 fLLow82.0-98.0The [facility] CenterComment on above:Order Comment: No: Do not add to previous drawPerformed By: #### [id number] #### [facility] [address] [place] [address], USAMonocytes (Bld) [#/Vol]0.7 10*3/uLNormal0.1-1.0The [facility] CenterComment on above:Order Comment: No: Do not add to previous drawPerformed By: #### [id number] #### [facility] [address] [place] [address], CSVPPSGN20.3 %Normal5.0-12.0The [facility] CenterComment on above:Order Comment: No: Do not add to previous drawPerformed By: #### 38605 #### [facility] [address] [place] [address], USANeutrophils/100 WBC (Bld)78.9 %High40.0-72.0The [facility] CenterComment on above:Order Comment: No: Do not add to previous drawPerformed By: #### 82241 #### [facility] [address] [place] [address], USANucleated RBC/100 WBC (Bld) [Ratio]0 %Normal0-0The [facility] CenterComment on above:Order Comment: No: Do not add to previous drawPerformed By: #### [id number] #### [facility] [address] [place] [address], USAPLAT PWC874 10*3/lOFrytpi951-923Hxa [facility] CenterComment on above:Order Comment: No: Do not add to previous draw Performed By: #### 07981 #### [facility] [address] [place] [address], USARBC (Bld) [#/Vol]3.85 10*6/uLLow4.20-5.70The [facility] CenterComment on above:Order Comment: No: Do not add to previous drawPerformed By: #### 28169 #### [facility] [address] [facility] [place] [address], USAWBC (Bld) [#/Vol]6.52 10*3/uLNormal4.00-10.60The [facility] CenterComment on above:Order Comment: No: Do not add to previous drawPerformed By: #### [id number] #### [facility] [address] [facility] [place] [address], USAHEMOGLOBIN A1Con 17-76-9472Pxjtgzm [Moles/Vol]111 mmol/L NormalThe [facility] CenterComment on above:Order Comment: Check Pacemaker/AICD Lead Position, Chest X-ray PA \EANDE\ LAT in Dept ;DO NOT lift affected arm above shoulder. S/P pacemaker/ICD implant. Verify lead placementPerformed By: #### [id number] ####[facility] [place] [address], BWATbF0t (Bld) [Mass fraction]5.5 %Normal4.0-6.0 The [facility] CenterComment on above:Order Comment: Check Pacemaker/AICD Lead Position, Chest X-ray PA \EANDE\ LAT in Dept ;DO NOT lift a ffected arm above shoulder. S/P pacemaker/ICD implant. Verify lead placement Performed By: #### 39614 ####[facility] [place] [address], USAMAGNESIUM BLOODon 92-68-6674Hprzfmtzk [Mass/Vol]2.6 mg/dLNormal1.9-2.7The [facility] CenterComment on above:Order Comment: No: Do not add to previous drawPerformed By: #### [id number] #### [facility] [address] [place] [address], USAAPTTon 60-52-5385hYQV Coag (Bld) [Time]49.8 sHigh25.0-35.0 The [facility] CenterComment on above:Order Comment: No: Do not add to previous drawResult Comment: ALL RESULTS MUST BE INTERPRETED WITH RESPECT TO BLOOD DRAWING ARTIFACT OR DILUTION ERROR OF ANTICOAGULANT AT THE TIME OF SAMPLING. THE APTT SHOULD NOT BE USED TO MONITOR UNFRACTIONATED HEPARIN THERAPY, THIS LABORATORY NO LONGER HAS AN ESTABLISHED THERAPEUTIC RANGE BASED ON THE APTT. IT IS RECOMMENDED THAT THE [facility] - HEPARIN ASSAY (ANTI-XA ACTIVITY) BE USED FOR THIS PURPOSE.Performed By: #### [id number] #### [facility] [address] [place] [address], USABASIC METABOLIC PANELon 27-00-3990Jqkkabq [Mass/Vol]8.8 mg/dLNormal8.6-10.3The [facility] CenterComment on above:Order Comment: No: Do not add to previous drawPerformed By: #### [id number] #### [facility] [address] [place] [address], USAChloride [Moles/Vol]100 mmol/CWrtdol47-625Aht [facility] CenterComment on above:Order Comment: No: Do not add to previous drawPerformed By: #### 53683 #### [facility] [address] [place] [address], USACO2 [Moles/Vol]27 mmol/VIacmxg46-07Gqr [facility] CenterComment on above:Order Comment: No: Do not add to previous draw Performed By: #### 26015 #### [facility] [address] [place] [address], USACreatinine [Mass/Vol]2.82 mg/dLHigh0.70-1.30The [facility] CenterComment on above:Order Comment: No: Do not add to previous drawPerformed By: #### [id number] #### [facility] [address] [place] [address], QRTUBTI89 ml/min/1.73sq mAbnormal>60The [facility] CenterComment on above:Order Comment: No: Do not add to previous draw Result Comment: [facility]'s estimated glomerular filtration rate (eGFR) [...] not disproportionately affect any one group of individuals.Performed By: #### [id number] #### [facility] [address] [place] [address], USAGlucose [Mass/Vol]114 mg/qYYrjf85-980Aux [facility] CenterComment on above:Order Comment: No: Do not add to previous drawPerformed By: #### 86243 #### [facility] [address] [address] [address], USAPotassium [Moles/Vol]4.4 mmol/LNormal3.5-5.1The [facility] CenterComment on above:Order Comment: No: Do not add to previous drawPerformed By: #### 99616 #### [facility] [address] [facility] [place] [address], USASodium [Moles/Vol]137 mmol/IAydqxd689-948Mvw [facility] CenterComment on above:Order Comment: No: Do not add to previous drawPerformed By: #### [id number] #### [facility] [address] [facility] [place] [address], USAUrea nitrogen [Mass/Vol]61 mg/dLHigh7-25The [facility] CenterComment on above:Order Comment: No: Do not add to previous drawPerformed By: #### 45700 #### [facility] [address] [place] [address], USABNP (B-TYPE NATRIURETIC PEPTIDE)on 55-58-3870Wdnpbpyeowz peptide B (Bld) [Mass/Vol]1813 pg/mLHigh0-100The [facility] CenterComment on above:Order Comment: Yes: Add to Previous draw if ableResult Comment: Given the appropriate clinical setting a BNP result of >100 pg/mL indicates congestive heart failure.Performed By: #### [id number] #### [facility] [address] [place] [address], [facility]ENTERC REACTIVE PROTEINon 57-00-3645YHQ [Mass/Vol]17.2 mg/LHigh 0.0-7.0The [facility] CenterComment on above:Order Comment: No: Do not add to previous drawPerformed By: #### [id number] #### [facility] [address] [facility] [place] [address], USACBC W/DIFFon 84-68-8264FWK IMM GRANS0.0 10*3/uLNormal 0.0-0.2The [facility] CenterComment on above:Performed By: #### [id number] #### [facility] [address] [facility] [address], USAABS NEUTROPHILS5.4 10*3/uLNormal1.6-7.6The [facility] CenterComment on above:Performed By: #### 35729 #### [facility] [address] [facility] [place] [address], USABasophils (Bld) [#/Vol]0.0 10*3/uLNormal0.0-0.2The [facility] CenterComment on above:Performed By: #### [id number] #### [facility] [address] [facility] [place] [address], USABasophils/100 WBC (Bld)0.6 %Normal0.0-1.0The [facility] CenterComment on above:Performed By: #### [id number] #### [facility] [address] [place] [address], USAEosinophils (Bld) [#/Vol]0.2 10*3/uLNormal0.0-0.5The [facility] CenterComment on above:Performed By: #### [id number] #### [facility] [address] [place] [address], USAEosinophils/100 WBC (Bld)2.5 %Normal0.0-6.0The [facility] Medical CenterComment on above:Performed By: #### [id number] #### [facility] [address] [place] [address], USAErythrocyte distribution width (RBC) [Ratio]19.9 %High 11.5-15.0The [facility] Medical CenterComment on above:Performed By: #### [id number] #### [facility] [address] [place] [address], USAHematocrit (Bld) [Volume fraction]31.6 %Low39.0-50.0The [facility] Medical CenterComment on above:Performed By: #### [id number] #### [facility] [address] [place] [address], USAHemoglobin (Bld) [Mass/Vol]9.3 g/dLLow13.0-17.0The [facility] CenterComment on above:Performed By: #### [id number] #### [facility] [address] [place] [address], USAIMMATURE GRANS0.2 %Normal0.0-1.0The [facility] Medical CenterComment on above:Performed By: #### [id number] #### [facility] [address] [place] [address], USALymphocytes (Bld) [#/Vol]0.3 10*3/uLLow1.2-4.0The [facility] CenterComment on above:Performed By: #### [id number] #### [facility] [address] [place] [address], USALymphocytes/100 WBC (Bld)4.4 %Low20.0-45.0The [facility] Medical CenterComment on above:Performed By: #### [id number] #### [facility] [address] [place] [address], [facility] (RBC) [Entitic mass]23.1 pgLow27.0-33.0The [facility] CenterComment on above:Performed By: #### 48077 #### [facility] [address] [place] [address], [facility] CENTERMCHC (RBC) [Mass/Vol]29.4 g/dLLow32.0-35.0The [facility] CenterComment on above:Performed By: #### [id number] #### [facility] [address] [place] [address], [facility] CENTERMCV (RBC) [Entitic vol]78.6 fLLow82.0-98.0The [facility] CenterComment on above:Performed By: #### 87517 #### [facility] [address] [facility] [place] [address], USAMonocytes (Bld) [#/Vol]0.6 10*3/uLNormal0.1-1.0The [facility] CenterComment on above:Performed By: #### [id number] #### [facility] [address] [place] [address], USAMONOS8.9 %Normal5.0-12.0The [facility] CenterComment on above:Performed By: #### [id number] #### [facility] [address] [place] [address], USANeutrophils/100 WBC (Bld)83.4 %High40.0-72.0The [facility] CenterComment on above:Performed By: #### [id number] #### [facility] [address] [place] [address], USANucleated RBC/100 WBC (Bld) [Ratio]0 %Normal0-0The [facility] CenterComment on above:Performed By: #### [id number] #### [facility] [address] [place] [address], USAPLAT AMU664 10*3/gQFmrsqv030-969Xhn [facility] CenterComment on above:Performed By: #### 01956 #### [facility] [address] [place] [address], USARBC (Bld) [#/Vol]4.02 10*6/uLLow4.20-5.70The [facility] CenterComment on above:Performed By: #### [id number] #### [facility] [address] [place] [address], USAWBC (Bld) [#/Vol]6.43 10*3/uLNormal4.00-10.60The [facility] CenterComment on above:Performed By: #### [id number] #### [facility] [address] [place] [address], USACOMPLEMENT 352-87-1189CXZOZHMMOV 3104 mg/kOPuonfk99-996 The [facility] CenterComment on above:Order Comment: No: Do not add to previous drawPerformed By: #### [id number] #### [facility] [address] [place] [address], USACOMPLEMENT 470-99-3215OEODAVORHI 423 mg/tHYrrgtd99-02Fxf [facility] CenterComment on above:Order Comment: No: Do not add to previous drawPerformed By: #### [id number] #### [facility] [address] [place] [address], USACPKon 20-22-6047RS [Catalytic activity/Vol]23 U/WLob74-207 The [facility] CenterComment on above:Order Comment: No: Do not add to previous drawPerformed By: #### [id number] #### [facility] [address] [place] [address], USACREATININE URINE RANDOMon 64-22-7428Jgzubpkshn (U) [Mass/Vol]104.0 mg/dLNormalThe [facility] Medical CenterComment on above:Order Comment: Check Pacemaker/AICD Lead Position, Chest X-ray PA \EANDE\ LAT in Dept ;DO NOT lift affected arm above shoulder. S/P pacemaker/ICD implant. Verify lead placementResult Comment: There are no established reference values for random urine specimensPerformed By: #### [id number], [id number] ####[facility] [place] [address], USAFERRITINon 36-46-4381Jnebjnxz [Mass/Vol]50 ng/zBCcgzsc26-822Fnc [facility] CenterComment on above:Order Comment: No: Do not add to previous draw Performed By: #### 43519 #### [facility] [address] [place] [address], USAHEPATITIS B CORE ANTIBODYon 05-92-0114YZW B CORE AB Non-ReactiveNormalNONREACTIVEThe [facility] CenterComment on above:Order Comment: No: Do not add to previous drawPerformed By: #### [id number] #### [facility] [address] [place] [address], USAHEPATITIS C ANTIBODYon 17-35-5391BNYJ-HCVNon-ReactiveNormal NONREACTIVEThe [facility] CenterComment on above:Order Comment: No: Do not add to previous drawPerformed By: #### 95627 #### [facility] [address] [place] [address], USAIMMUNOFIXATION BLOODon 98-99-3153BkZ [Mass/Vol]733 mg/dL Skdl22-192Uis [facility] CenterComment on above:Performed By: #### 10741 #### [facility] [address] [place] [address], USAIgG [Mass/Vol]1330 mg/nRUkxbce938-9607Kvp [facility] CenterComment on above:Performed By: #### 15083 #### [facility] [address] [place] [address], USAIgM [Mass/Vol]365 mg/nLVzhb01-505Wcq [facility] CenterComment on above:Performed By: #### 70590 #### [facility] [address] 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 SEE SEPARATE REPORTPerformed By: #### 43651 #### [facility] [address] [place] [address], USAKAPPA LIGHT CHNSee [place] report.Normal0.33-1.94The [facility] CenterComment on above:Performed By: #### 54784 #### [facility] [address] [facility] [place] [address], USAKAPPA/LAMDBA RATIOSee [place] report.Normal0.26-1.65The [facility] CenterComment on above:Result Comment: For patients with renal impairment, use a kappa/lambda ratio of 0.37-3.10Performed By: #### 67031 #### [facility] [address] [place] [address], USALAMBDA LIGHT CHNSee [place] report.Normal0.57-2.63The [facility] CenterComment on above:Performed By: #### 08999 #### [facility] [address] [place] [address], USALIVER BATTERYon 34-90-3717Nlxlftx [Mass/Vol]3.3 g/dLLow 3.5-5.7The [facility] CenterComment on above:Order Comment: No: Do not add to previous drawPerformed By: #### 37134 #### [facility] [address] [place] [address], USAALKALINE NQBFJC19 IU/CMkehsr23-739Vxk [facility] CenterComment on above:Order Comment: No: Do not add to previous draw Performed By: #### [id number] #### [facility] [address] [place] [address], USAALT [Catalytic activity/Vol]15 U/LNormal7-52The [facility] CenterComment on above:Order Comment: No: Do not add to previous drawPerformed By: #### [id number] #### [facility] [address] [place] [address], USAAST [Catalytic activity/Vol]16 U/KDpkauk68-66Rao [facility] CenterComment on above:Order Comment: No: Do not add to previous drawPerformed By: #### [id number] #### [facility] [address] [place] [address], USABilirubin [Mass/Vol]1.2 mg/dLHigh0.3-1.0The [facility] CenterComment on above:Order Comment: No: Do not add to previous drawPerformed By: #### [id number] #### [facility] [address] [place] [address], USABilirubin.direct [Mass/Vol]0.4 mg/dLHigh0.0-0.2The [facility] CenterComment on above:Order Comment: No: Do not add to previous drawPerformed By: #### 80036 #### [facility] [address] [place] [address], USAProtein [Mass/Vol]6.8 g/dLNormal6.0-8.3The [facility] CenterComment on above:Order Comment: No: Do not add to previous drawPerformed By: #### 15795 #### [facility] [address] [place] [address], USAMAGNESIUM BLOODon 06-23-3862Nlnsalxeu [Mass/Vol]2.7 mg/dL Normal1.9-2.7The [facility] CenterComment on above:Order Comment: No: Do not add to previous drawPerformed By: #### [id number] #### [facility] [address] [place] [address], USAPHOSPHORUS BLOODon 66-77-4952Hwnezylpp [Mass/Vol]3.7 mg/dL Normal2.5-5.0The [facility] CenterComment on above:Order Comment: No: Do not add to previous drawPerformed By: #### [id number] #### [facility] [address] [place] [address], USAPOC SARS COV2 ANTIGEN NEGATIVEon 99-26-0991BQB SARS COV2 ANTIGEN NEGNegativeNormalNEGATIVEThe [facility] CenterComment on above:Result Comment: Negative results should be treated as presumptive and [...] antigen from SARS-CoV-2 in direct nasopharyngeal swab (ASSEMBLY ASSOCIATE) specimens from individuals who are suspected of [...] Waiver, Certificate of Compliance, or Certificate of Accreditation.Performed By: #### [id number] ####[facility] [place] [address], USAPROTEIN ELECT Marcos 04-25-2022 Protein [Mass/Vol]6.9 g/dLNormal6.0-8.3The [facility] Comment on above:Order Comment: No: Do not add to previous drawPerformed By: #### 56965 #### [facility] [address] [place] [address], USAProtein [Mass/Vol]0.20 g/dLHigh0.00-0.00The [facility] CenterComment on above:Order Comment: No: Do not add to previous drawPerformed By: #### [id number] #### [facility] [address] [place] [address], USAPROTEIN ELECTNoOhioHealth Comment on above:Order Comment: No: Do not add to previous drawResult Comment: The abnormal band in the gamma globulin region suggests monoclonal gammopathy. SEE SEPARATE REPORTPerformed By: #### 39815 #### [facility] [address] [place] [address], USAPROTEIN ELECT URon 56-40-4223PXTJMZY ELECTNo abnormal bands seen. SEE SEPARATE REPORTNoOhioHealthComment on above:Order Comment: Check Pacemaker/AICD Lead Position, Chest X-ray PA \EANDE\ LAT in Dept ;DO NOT lift affected arm above shoulder. S/P pacemaker/ICD implant. Verify lead placementPerformed By: #### 86941, 67625 ####[facility] [place] [address], USAU TOTAL WUNSGNG52.8 mg/dLNoOhioHealthComment on above:Order Comment: Check Pacemaker/AICD Lead Position, Chest X-ray PA \EANDE\ LAT in Dept ;DO NOT lift affected arm above shoulder. S/P pacemaker/ICD implant. Verify lead placementResult Comment: There are no established reference values for random urine specimensPerformed By: #### 82181, 92132 ####[facility] [place] [address], USAPROTHROMBIN TIMEon 25-93-6445LXN Coag (PPP) [Relative time]1.71 {INR}High0.91-1.16The [facility] CenterComment on above:Order Comment: No: Do not add to previous draw Result Comment: [facility] RECOMMENDED INR FOR WARFARIN THERAPY ------- CONDITION INR PROPHYLAXIS OF VENOUS THROMBOSIS 2-3 (HIGH-RISK SURGERY) TREATMENT OF VENOUS THROMBOSIS 2-3 TREATMENT OF PULMONARY EMBOLISM 2-3 PREVENTION OF SYSTEMIC EMBOLISM: 2-3 ACUTE MYOCARDIAL INFARCTION TISSUE HEART VALVES VALVULAR HEART DISEASE ATRIAL FIBRILLATION RECURRENT SYSTEMIC EMBOLISM MECHANICAL HEART VALVE 2.5-3.5 FROM: ORAL ANTICOAGULANTS. MECHANISM OF ACTION, CLINICAL EFFECTIVENESS, AND OPTIMAL THERAPEUTIC RANGE. CHEST 1995;108:231S-246S.Performed By: #### [id number] #### [facility] [address] [place] [address], USAPT Coag (PPP) [Time]19.8 sHigh12.3-14.8The [facility] CenterComment on above:Order Comment: No: Do not add to previous drawResult Comment: ALL RESULTS MUST BE INTERPRETED WITH RESPECT TO BLOOD DRAWING ARTIFACT OR DILUTION ERROR OF ANTICOAGULANT AT THE TIME OF SAMPLING.Performed By: #### [id number] #### [facility] [address] [place] [address], USASEDIMENTATION RATEon 69-61-6247UQJ RATE63 mm/hrHigh0-10The [facility] CenterComment on above:Order Comment: No: Do not add to previous drawPerformed By: #### [id number] #### [facility] [address] [place] [address], USASERUM FREE LIGHT CHAINS ILon 38-72-0556FKGQ KAPPA LIGHT CXKIKE95.36 mg/dLHigh0.37-1.94The [facility] CenterFREE KAPPA/LAMBDA RATIO2.98Przc5.26-1.65The [facility] CenterFREE LAMBDA LIGHT CHAINS7.19 mg/dLHigh0.57-2.63The [facility] SystemNoOhioHealthComment on above:Result Comment: Test Performed by [facility] [address] [place] [address] - Released 05/02/2022 21:21 Result changed by IF on 05/02/2022 21:21. The previous value was Test Performed by [facility] [address] [place] [address] [phone]..TIBC- INCLUDES IRONon 12-83-7159DK SATURATION9 %Dit02-54Yfx [facility] CenterComment on above:Order Comment: No: Do not add to previous drawPerformed By: #### 81406 #### [facility] [address] [place] [address], USAIron [Mass/Vol]31 ug/vFWnd74-986Lna [facility] CenterComment on above:Order Comment: No: Do not add to previous draw Performed By: #### 33896 #### [facility] [address] [place] [address], SPAVAAO114 mcg/fFBevpuw715-527Fua [facility] CenterComment on above:Order Comment: No: Do not add to previous drawPerformed By: #### 93563 #### [facility] [address] [place] [address], TCUXVNW178 mcg/rDAqtvbv327-643Ucp [facility] CenterComment on above:Order Comment: No: Do not add to previous drawPerformed By: #### 37283 #### [facility] [address] [place] [place] [address], USATROPONIN-Ion 00-58-0916Jiuvlukj I.cardiac [Mass/Vol]0.03 ng/mLNormal0.00-0.04The [facility] CenterComment on above: Order Comment: No: Do not add to previous drawResult Comment: REFERENCE RANGES: 0.00 - 0.04 ng/ml NORMAL 0.05 - 0.50 ng/ml INDETERMINATE > 0.50 ng/ml CONSISTENT WITH AN M.I.Performed By: #### [id number] #### [facility] [address] [facility] [place] [address], USAUS RENAL WITH BLADDERon 41-47-6555DC RENAL WITH BLADDER [facility] Department of Radiology [address] [place] [id number] Patient Name: MAN PATEL : 1950 Sex: M Age: Race: White Pt. Location: [address] [place] [address] Patient Status: I Ordered Date: 04/25/2022 3:40:00 [...] cyst. Electronically signed: Joel Lambert. Transcribed by: [email or web address], User Resident: Electronically Signed by: TIFFANIE CASTILLO @ 05/08/2022 08:26 AMNormalChildren's Hospital of ColumbusComment on above:Order Comment: R/O HydronephrosisBNPon 97-49-6578Npnphwkwzhi peptide B (Bld) [Mass/Vol]09404.0 pg/mLCritically high<=900.0The [facility] HospitalComment on above:Performed By: #### HSTROPN, BNP, BMP ####[facility] [address] [id number]. Elba ChangCBC AUTO DIFFon 27-59-0541BKJD #0.1 103/ulNormal0.0-0.1The [facility] HospitalComment on above:Performed By: #### CBC ####[facility] [address] [address]Dr. Elba ChangBasophils/100 WBC (Bld)0.8 %Normal0.2-2.0The [facility] HospitalComment on above:Performed By: #### CBC ####[facility] [address] [address]Dr.Yilan ChangEO #0.2 103/ulNormal0.0-0.7The [facility] HospitalComment on above:Performed By: #### CBC ####[facility] Viigsjuohz[address] [place], [place] [address]Dr.Nereydalan ChangEosinophils/100 WBC (Bld)3.0 %Normal0.9-7.0The [facility] HospitalComment on above:Performed By: #### CBC ####[facility] [address]kdbcwzthw[address] [place], [place] [address]Dr.Nereydalan ChangErythrocyte distribution width (RBC) [Ratio]20.0 %Critically high11.0-15.0The [facility] HospitalComment on above:Performed By: #### CBC ####[facility] Rbaqvupcmy[address] [place], [place] [address]Dr. Nereydalan ChangHematocrit (Bld) [Volume fraction]32.7 %Critically low42.0-54.0The [facility] HospitalComment on above:Performed By: #### CBC ####[facility] Rqlobmvejr[address] [place], [place] [address]Dr.Nereydalan ChangHemoglobin (Bld) [Mass/Vol]9.7 g/dLCritically low14.0-18.0The [facility] HospitalComveterans affairs medical center on above:Performed By: #### CBC ####[facility] Jwsiifs[address] [place], [place] [address]Dr.Yilan ChangIG #0.02 10e3/ulNormal0.00-0.03The [facility] HospitalComment on above:Performed By: #### CBC ####[facility] Xdyqlkrpkr[address] [place], [place] [address]Dr.Yilan ChangIG %0.3 %Normal 0.0-0.5The [facility] HospitalComment on above:Performed By: #### CBC ####[facility] Sigsnhruvx[address] [place], [place] [address]Dr.Yilan ChangLYMPH #0.3 103/ulCritically low1.2-3.8The [facility] HospitalComment on above:Performed By: #### CBC ####[facility] Xqvjxzlnee[address] [place], [place] [address]Dr.Elba AnthonyLymphocytes/100 WBC (Bld)4.9 %Critically low20.5-60.0The [facility] HospitalComment on above:Performed By: #### CBC ####[facility] X[address]quir[address] [place], [place] [address]Dr.Elba AnthonyMANUAL DIFF REQ NONormalThe [facility] HospitalComment on above:Performed By: #### CBC ####[facility] Shglikdbnr[address] [place], [place] [address]Dr. Nereydasiobhan AnthonyMCH (RBC) [Entitic mass]23.8 pgCritically low25.9-34.0The [facility] HospitalComment on above:Performed By: #### CBC ####[facility] [address]ik[address]hw[address] [place], [place] [address]Dr.Nereydasiobhan AnthonyMCHC (RBC) [Mass/Vol]29.7 g/dLCritically low29.9-35.2The [facility] HospitalComment on above: Performed By: #### CBC ####[facility] Wqvnpdkjiw[address] [place], [place] [address]Dr.Nereydasiobhan RajMCV (RBC) [Entitic vol]80.3 fLNormal 80.0-94.0The [facility] HospitalComment on above:Performed By: #### CBC ####[facility] Kdsctjtwke[address] [place], [place] [address]Dr. Nereydasiobhan RajMONO #0.6 103/ulNormal0.3-0.8The [facility] HospitalComment on above: Performed By: #### CBC ####[facility] Ibnvenxkoy[address] [place], [place] [address]Dr.Elba AnthonyMonocytes/100 WBC (Bld)9.6 %Normal 1.7-12.0The [facility] HospitalComment on above:Performed By: #### CBC ####[facility] Fpnhnsnwgf[address] [place], [place] [address]Dr. Yilan ChangNEUT #5.2 103/ulNormal1.4-6.5The [facility] HospitalComment on above: Performed By: #### CBC ####[facility] [address] [address]Dr.Elba AnthonyNeutrophils/100 WBC (Bld)81.4 % Critically high43.0-75.0The [facility] HospitalComment on above:Performed By: #### CBC ####[facility] [address] [address]Dr. Elba AnthonyPlatelet mean volume (Bld) [Entitic vol]10.1 fLNormal9.5-13.5The [facility] HospitalComment on above:Performed By: #### CBC ####[facility] Yuiegjtdpj[address] [place], [place] [address]Dr.Elba AnthonyPLT214 103/ul Tomaxj482-527Zao [facility] HospitalComment on above:Performed By: #### CBC ####[facility] Stcqutjcxv[address] [place], [place] [address]Dr. Elba AnthonyRBC4.07 106/ulCritically low4.70-6.10The [facility] HospitalComment on above:Performed By: #### CBC ####[facility] Xowjwfgdaf[address] [place], [place] [address]Dr.Elba AnthonyWBC6.4 103/ulNormal4.0-11.0The [facility] HospitalComment on above:Performed By: #### CBC ####[facility] Raedddnfam[address] [place], [place] [address]Dr.Elba AnthonyCovid-19 PCR (CVDTB)on 62-76-5865KIQJ-CoV-2 (COVID-19) RNA ELIZABETH+probe Ql (Unsp spec)Not detectedNormalNOT DETECTEDThe [facility] HospitalComveterans affairs medical center on above:Result Comment: When diagnostic testing is negative, the [...] for this test is supported by the [employer] Grader of Health and Human Service's declaration that circumstances exist to justify the emergency use of in vitro diagnostics for the detection and/or diagnosis of the virus that causes COVID-19. This EUA will remain in effect for the duration of the COVID-19declaration justifying emergency of IVDs, unless it is terminated or revoked by the FDA (after which the test may no longer be used).Performed By: #### CVDTBH ####[facility] Uq[address]sbiiwk[address] [place], [place] [address]Dr. Yilan ChangER URINE PROFILEon 41-58-8238Lmqoukgcq Ql (U)NegativeNormal NEGATIVECleveland Clinic FoundationComment on above:Performed By: #### ERUR ####[facility] Jfshzqtnfu[address] [place], [place] [address]Dr. Yilan ChangClarity (U)CLEARNormalCLEARKindred Healthcare HospitalComment on above: Performed By: #### ERUR ####[facility] [address]kwmpopwju[address] [place], [place] [address]Dr. Yilan ChangColor (U)LT. YELLOWNormalYELLOWCleveland Clinic FoundationComment on above:Performed By: #### ERUR ####[facility] I[address]hudjufm[address] [place], [place] [address]Dr. Yilan ChangERUAHDA micrscopic examination will be performed if indicated.NormalCleveland Clinic FoundationComment on above:Performed By: #### ERUR ####[facility] Ahtdrjeacq[address] [place], [place] [address]Dr. Yilan ChangGlucose Ql (U) NegativeNormalNEGATIVECleveland Clinic FoundationComment on above:Performed By: #### ERUR ####[facility] Qxebjnwmfn5187[address] [place], [place] [address]Dr. Yilan ChangHemoglobin Ql (U)NegativeNormalNEGATIVECleveland Clinic Foundation Comment on above:Performed By: #### ERUR ####[facility] Gfwapgzgxt[address] [place] [address]Dr. Elba AnthonyKetones Ql (U)NegativeNormal NEGATIVEThe [facility] HospitalComment on above:Performed By: #### ERUR ####[facility] Fhzuhooocb84[address] [place], [place] [address]Dr. Elba AnthonyLEUKOCYTESNegativeNormalNEGATIVEThe [facility] HospitalComment on above:Performed By: #### ERUR ####[facility] Odctcuscwc6888[address] [place], [place] [address]Dr. Elba AnthonyNitrite Ql (U)NegativeNormalNEGATIVEThe [facility] HospitalComment on above:Performed By: #### ERUR ####[facility] Zvzerjmjeh567[address] [place], [place] [address]Dr. Elba AnthonypH (U)6.0 [pH] Normal5-9The [facility] HospitalComment on above:Performed By: #### ERUR ####[facility] Opvtroxune6588[address] [place], [place] [address]Dr. Nereydasiobhan RajSPEC GRAVITY1.339Qkhaad5.005-<=1.025The [facility] HospitalComment on above:Performed By: #### ERUR ####[facility] Umssnltlno6[address] [place], [place] [address]Dr. Nereydasiobhan RajUA PROTEINNegativeNormalNEGATIVE/ TRACE The [facility] HospitalComment on above:Performed By: #### ERUR ####[facility] Emxeqzmhhp2394[address] [place], [place] [address]Dr. Elba AnthonyUR MICRO INDNOT INDICATEDNormalThe [facility] HospitalComment on above:Performed By: #### ERUR ####[facility] Qgqukfyngv8413[address] [place], [place] [address]Dr. Elba AnthonyUrobilinogen Qn (U)2.0 {Caden'U}/dLAbnormal0.2 - 1.0The [facility] HospitalComment on above:Performed By: #### ERUR ####[facility] Fncifjddbw8853[address] [place], [place] [address]Dr. Elba AnthonyPROF CHEM 8 (BAS METB)on 23-02-1640Himvx gap [Moles/Vol]16.7 mmol/LNormalThe [facility] HospitalComment on above:Performed By: #### HSTROPN, BNP, BMP ####[facility] Ekcrjbphyb9[address] [place] [address]Dr. Yilan Anthony Calcium [Mass/Vol]9.2 mg/dLNormal8.5-10.1The [facility] HospitalComment on above: Performed By: #### HSTROPN, BNP, BMP ####[facility] Agpnozhrdc[address] [place], [place] [address]Dr. Yilan ChangChloride [Moles/Vol]97 mmol/L Critically tgk47-118Clt [facility] HospitalComment on above:Performed By: #### HSTROPN, BNP, BMP ####[facility] Aarocxzboh2742[address] [place], [place] [address]Dr. Yilan ChangCO2 [Moles/Vol]26.3 mmol/XDiuwnh40.0-32.0The [facility] HospitalComment on above:Performed By: #### HSTROPN, BNP, BMP ####[facility] Chqfuxfcet[address] [place], [place] [address]Dr. Yilan Anthony Creatinine [Mass/Vol]3.32 mg/dLCritically high0.70-1.30The [facility] Comment on above:Performed By: #### HSTROPN, BNP, BMP ####[facility] Ktqpxtewok[address] [place], [place] [address]Dr. Yilan ChangEGFR-AF EFOSWNDZ26 mL/min/1.74m3Uibypntrib low>=60The [facility] HospitalComment on above: Performed By: #### HSTROPN, BNP, BMP ####[facility] Ywxjvvsvsx134[address] [place], [place] [address]Dr. Yilan ChangEGFR-NON AF FFDHTRIV86 mL/min/1.53q0Uvabflrojx low>=60The [facility] HospitalComment on above:Performed By: #### HSTROPN, BNP, BMP ####[facility] Qhysoyzyjy086[address] [place], [place] [address]Dr. Yilan ChangGlucose [Mass/Vol]158 mg/dLCritically tiuz09-034Wja [facility] HospitalComment on above:Performed By: #### HSTROPN, BNP, BMP ####[facility] Ikkugonirb[address] [place] [address]Dr. Yilan ChangPotassium [Moles/Vol]5.0 mmol/LNormal3.5-5.1The [facility] Comment on above:Performed By: #### HSTROPN, BNP, BMP ####[facility] Lvckbmzhvi3[address] [place] [address]Dr. Yilan ChangSodium [Moles/Vol]135 mmol/LCritically uzw832-569Fes [facility] HospitalComment on above: Performed By: #### HSTROPN, BNP, BMP ####[facility] Ohlyenmfzs55[address] [place] [address]Dr. Yilan ChangUrea nitrogen [Mass/Vol]67.0 mg/dL Critically high7.0-18.0The [facility] HospitalComment on above:Performed By: #### HSTROPN, BNP, BMP ####[facility] Vcrbvhbxhu49[address] [place] [address]Dr. Yilan ChangUrea nitrogen/Creatinine [Mass ratio]20.2 mg/mgNormal The [facility] HospitalComment on above:Performed By: #### HSTROPN, BNP, BMP ####[facility] Vuktlfsxht[address] [place] [address]Dr. Elba ChangTROPONIN, HIGH SENSITIVITYon 35-26-9353RTCILC58.4 pg/mLNormal4.0-76.1 The [facility] HospitalComment on above:Result Comment: CUT-OFF POINTS HAVE BEEN ESTABLISHED BASED ON THE FOURTH UNIVERSAL DEFINITIONS OF MYOCARDIALINFARCTION. THE UPPER REFERENCE LIMIT (URL) OF TROPONIN, DEFINED THE 99TH PERCENTILE OFcT nI DISTRIBUTION IN A REFERENCE POPULATION, HAS BEEN CONFIRMED THE DECISION THRESHOLDFOR DE DIAGNOSIS.Performed By: #### HSTROPN, BNP, BMP ####[facility] Arehgrdoma6[address] [place] [address]Dr. Yilan ChangXR CHEST 1 Von 76-64-0391RI CHEST 1 VNormalThe [facility] HospitalBNPon 04-22-2022 Natriuretic peptide B (Bld) [Mass/Vol]05142.0 pg/mLCritically high<=900.0The [facility] HospitalComment on above:Performed By: #### BNP, BMP ####[facility] Lsdxmnejlv329[address] [place], [place] [address]Dr. Yilan ChangPROF CHEM 8 (BAS METB)on 27-60-1684Gyemw gap [Moles/Vol]13.8 mmol/LNormalThe [facility] HospitalComment on above:Performed By: #### BNP, BMP ####[facility] Knsdoxnjne336[address] [place], [place] [address]Dr. Yilan ChangCalcium [Mass/Vol]8.7 mg/dLNormal8.5-10.1The [facility] HospitalComment on above:Performed By: #### BNP, BMP ####[facility] Pgmsbwrmfm5338[address] [place], [place] [address]Dr. Yilan ChangChloride [Moles/Vol]98 mmol/LNormal 98-107The [facility] HospitalComment on above:Performed By: #### BNP, BMP ####[facility] Epkygfmipf638[address] [place], [place] [address]Dr. Yilan ChangCO2 [Moles/Vol]29.1 mmol/TGuhebi84.0-32.0The [facility] HospitalComment on above:Performed By: #### BNP, BMP ####[facility] Bymtnjvmzr1618[address] [place], [place] [address]Dr. Yilan ChangCreatinine [Mass/Vol]2.89 mg/dL Critically high0.70-1.30The [facility] HospitalComment on above:Performed By: #### BNP, BMP ####[facility] Iwywhuccac2376[address] [place], [place] [address]Dr. Yilan ChangEGFR-AF DDXYNHFJ07 mL/min/1.88w6Wnftgktpzm low>=60The [facility] HospitalComment on above:Performed By: #### BNP, BMP ####[facility] Xtkaqzrgvr7[address] Main StreetB[place]vue, [place] [address]Vk. Yilan ChangEGFR- NON AF TZIUXJJL10 mL/min/1.31o9Lodwunvmvx low>=60The [facility] HospitalComment on above:Performed By: #### BNP, BMP ####[facility] Wvgnaglhgl420214 [address] [place], [place] [address]Dr. Nereydalan ChangGlucose [Mass/Vol]108 mg/dL Critically mfyn30-370Zvg [facility] HospitalComment on above:Performed By: #### BNP, BMP ####[facility] Atqojqrzku601[address] [place], [place] [address]Dr. Yilan ChangPotassium [Moles/Vol]4.9 mmol/LNormal3.5-5.1The [facility] HospitalComment on above:Performed By: #### BNP, BMP ####[facility] Ymgillbmxh5316[address] [place], [place] [address]Dr. Nereydalan ChangSodium [Moles/Vol]136 mmol/BAiuuhf332-127Nur [facility] HospitalComment on above: Performed By: #### BNP, BMP ####[facility] Ojjeaqegpv3857[address] [place], [place] [address]Dr. Nereydalan ChangUrea nitrogen [Mass/Vol]63.0 mg/dL Critically high7.0-18.0The [facility] HospitalComment on above:Performed By: #### BNP, BMP ####[facility] Jimxxxhfps3917[address] [place], [place] [address]Dr. Yilan ChangUrea nitrogen/Creatinine [Mass ratio]21.8 mg/mgNormalThe [facility] HospitalComveterans affairs medical center on above:Performed By: #### BNP, BMP ####[facility] Jlmlehyyfr6097[address] [place], [place] [address]Dr. Elba ChangBNPon 77-45-6878Tobtvrhktdt peptide B (Bld) [Mass/Vol]55028.0 pg/mLCritically high <=900.0The [facility] on above:Result Comment: repeatedPerformed By: #### BNP, BMP ####[facility] Zbyyahflqf9[address] [place], [place] [address]Dr. Nereydasiobhan ChangPROF CHEM 8 (BAS METB)on 30-72-1498Znjxl gap [Moles/Vol]16.8 mmol/LNormalThe [facility] HospitalComment on above:Performed By: #### BNP, BMP ####[facility] Jtbiresgvv9822[address] [place], [place] [address]Dr. Yilan ChangCalcium [Mass/Vol]8.4 mg/dLCritically low8.5-10.1The [facility] HospitalComment on above:Performed By: #### BNP, BMP ####[facility] Pdqakbfppe4466[address] [place], [place] [address]Dr. Yilan Anthony Chloride [Moles/Vol]96 mmol/LCritically ftz05-943Fqi [facility] HospitalComment on above:Performed By: #### BNP, BMP ####[facility] Zuocnvqfnd0827[address] [place], [place] [address]Dr. Yilan ChangCO2 [Moles/Vol]26.9 mmol/LNormal 21.0-32.0The [facility] HospitalComment on above:Performed By: #### BNP, BMP ####[facility] Ikpppipgek8[address] [place], [place] [address]Dr. Yilan ChangCreatinine [Mass/Vol]2.83 mg/dLCritically high0.70-1.30The [facility] HospitalComment on above:Performed By: #### BNP, BMP ####[facility] Uilupbrkxc9658[address] [place], [place] [address]Dr. Yilan ChangEGFR-AF DZYHIKND25 mL/min/1.41e6Anpjvmwdat low>=60The [facility] HospitalComment on above: Performed By: #### BNP, BMP ####[facility] Hzkdkwvlnr1932[address] [place], [place] [address]Dr. Yilan ChangEGFR-NON AF OXGHQUSC87 mL/min/1.73m2 Critically low>=60The [facility] HospitalComment on above:Performed By: #### BNP, BMP ####[facility] Thoobctwwp5878[address] [place], [place] [address]Dr. Yilan ChangGlucose [Mass/Vol]118 mg/dLCritically oewg36-519Qsx [facility] HospitalComment on above:Performed By: #### BNP, BMP ####[facility] Gfyjiezznn7[address] [place] [address]Dr. Yilan ChangPotassium [Moles/Vol]4.7 mmol/LNormal3.5-5.1The [facility] HospitalComment on above: Performed By: #### BNP, BMP ####[facility] Eipmaxjwrt5635[address] [place], [place] [address]Dr. Yilan ChangSodium [Moles/Vol]135 mmol/LCritically xvh765-806Rok [facility] HospitalComment on above:Performed By: #### BNP, BMP ####[facility] Wokvgncxem939[address] [place], [place] [address]Dr. Yilan ChangUrea nitrogen [Mass/Vol]68.0 mg/dLCritically high7.0-18.0The [facility] HospitalComment on above:Performed By: #### BNP, BMP ####[facility] Akkzyfmrow6254[address] [place], [place] [address]Dr. Yilan ChangUrea nitrogen/Creatinine [Mass ratio]24.0 mg/mgNormalThe [facility] HospitalComment on above:Performed By: #### BNP, BMP ####[facility] Sgipelnxvq355614 [address] [place], [place] [address]Dr. Elba ChangBNPon 36-18-0290Dykuyzgojjv peptide B (Bld) [Mass/Vol]79970.0 pg/mLCritically high<=900.0The [facility] HospitalComment on above:Performed By: #### BNP, BMP ####[facility] Lofqszlqrq1427[address] [place], [place] [address]Dr. Elba ChangPROF CHEM 8 (BAS METB)on 78-97-3012Gbiuc gap [Moles/Vol]9.7 mmol/LNormalThe [facility] HospitalComment on above:Performed By: #### BNP, BMP ####[facility] Pzzwmabcwv0217[address] [place], [place] [address]Dr. Yilan ChangCalcium [Mass/Vol]8.8 mg/dLNormal 8.5-10.1The [facility] HospitalComment on above:Performed By: #### BNP, BMP ####[facility] Tptskqnrzw3435[address] [place], [place] [address]Dr. Yilan ChangChloride [Moles/Vol]99 mmol/FObjxka42-472Drf [facility] HospitalComment on above:Performed By: #### BNP, BMP ####[facility] Rxoizwzmve580[address] [place], [place] [address]Dr. Yilan ChangCO2 [Moles/Vol]31.1 mmol/LNormal 21.0-32.0The [facility] HospitalComment on above:Performed By: #### BNP, BMP ####[facility] Iprmvimvpk[address] [place], [place] [address]Dr. Yilan ChangCreatinine [Mass/Vol]2.45 mg/dLCritically high0.70-1.30The [facility] HospitalComveterans affairs medical center on above:Performed By: #### BNP, BMP ####[facility] Geldpwtpab3518[address] [place], [place] [address]Dr. Yilan ChangEGFR-AF CZNZDKUB90 mL/min/1.78t8Yyusvgfsnj low>=60The [facility] on above: Performed By: #### BNP, BMP ####[facility] Knmzelqlzb9542[address] [place], [place] [address]Dr. Yilan ChangEGFR-NON AF ZBARVFXT20 mL/min/1.73m2 Critically low>=60The [facility] HospitalComveterans affairs medical center on above:Performed By: #### BNP, BMP ####[facility] Noaoboyxuo4014[address] [place], [place] [address]Dr. Yilan ChangGlucose [Mass/Vol]101 mg/dTEjeutk50-556Hdk [facility] on above:Performed By: #### BNP, BMP ####[facility] Zycduntpjx1114[address] [place], [place] [address]Dr. Yilan ChangPotassium [Moles/Vol]3.8 mmol/L Normal3.5-5.1The [facility] HospitalComveterans affairs medical center on above:Performed By: #### BNP, BMP ####[facility] Sfejbvnvdp5346[address] [place], [place] [address]Dr. Yilan ChangSodium [Moles/Vol]136 mmol/XGniaaw310-193Xqy [facility] HospitalComment on above:Performed By: #### BNP, BMP ####[facility] Thizwlfwqx56[address] [place] [address]Dr. Elba ChangUrea nitrogen [Mass/Vol]46.0 mg/dL Critically high7.0-18.0The [facility] HospitalComment on above:Performed By: #### BNP, BMP ####[facility] Kzjzmnyxxe55[address] [place] [address]Dr. Yilan ChangUrea nitrogen/Creatinine [Mass ratio]18.8 mg/mgNormalThC[facility] Clinic [facility] HospitalComment on above:Performed By: #### BNP, BMP ####[facility] Gquqfbncgc9446 [place] [address]Dr. Nereydalan ChangCBC W MANUAL DIFFon 08-61-2289MVULSYSKPZLT8+NormalThe [facility] HospitalComment on above:Performed By: #### CBCMAN ####[facility] Krthnkentm2811[address] [place], [place] [address]Dr. Yilan ChangATYPICAL LYMPH #0.00 103/ulNormalThC[facility] Clinic [facility] HospitalComment on above:Performed By: #### CBCMAN ####[facility] Kecndpfufd8488[address] [place], [place] [address]Dr. Yilan Anthony ATYPICAL LYMPH %0 %NormalThe [facility] HospitalComment on above:Performed By: #### CBCMAN ####[facility] Gygbsaehde4268[address] [place], [place] [address]Dr. Yilan ChangBAND #0.4 103/ulCritically high0.0-0.3The [facility] Comment on above:Performed By: #### CBCMAN ####[facility] Iorxmeomym8[address] [place], [place] [address]Dr. Yilan ChangBAND %4 %Normal0-5The [facility] HospitalComment on above:Performed By: #### CBCMAN ####[facility] Fobcxruhvj9678[address] [place], [place] [address]Dr. Yilan ChangBASOM #0.00 103/ulNormal0.00-0.10The [facility] HospitalComment on above:Performed By: #### CBCMAN ####[facility] Rwpogjeqyy4367 [place] [address]Dr. Yilan ChangBASOM %0.0 %Critically low0.2-2.0The [facility] Comment on above:Performed By: #### CBCMAN ####[facility] Gvqaoiwbbj34[address] [place], [place] [address]Dr. Yilan ChangBLAST #0.0 103/ulNormAdena Regional Medical Center HospitalComment on above:Performed By: #### CBCMAN ####[facility] Hkgnasjtrs0067[address] [place], [place] [address]Dr. Yilan ChangBLAST %0 %NormalThe [facility] HospitalComment on above:Performed By: #### CBCMAN ####[facility] Zqnrwiouzw1856[address] [place], [place] [address]Dr. Yilan ChangCORRECTED WBCNormal4.0-11.0The [facility] HospitalComment on above: Performed By: #### CBCMAN ####[facility] Dpihmjioqa093[address] [place], [place] [address]Dr. Yilan ChangEOS #0.00 103/ulNormal0.00-0.70The [facility] HospitalComment on above:Performed By: #### CBCMAN ####[facility] Vjtumconly3487[address] [place], [place] [address]Dr. Yilan ChangEOS% 0.0 %Critically low0.9-7.0The [facility] HospitalComment on above:Performed By: #### CBCMAN ####[facility] Iprvdcdfrh941[address] [place], [place] [address]Dr. Yilan VwalyVEJ59.3 %Critically low42.0-54.0The [facility] HospitalComment on above:Performed By: #### CBCMAN ####[facility] Dykfughrdv3657[address] [place], [place] [address]Dr. Yilan ChangHGB9.2 g/dlCritically low14.0-18.0 The [facility] HospitalComment on above:Performed By: #### CBCMAN ####[facility] Sjbcxzmjgc026[address] [place], [place] [address]Dr. Yilan Anthony HYPOCHROMASIASLIGHTNoLima City HospitalComment on above:Performed By: #### CBCMAN ####[facility] Twfuhihhyh[address] [place] [address]Dr. Elba AnthonyLYMPHM #0.32 103/ulCritically low1.20-3.80The [facility] HospitalComment on above:Performed By: #### CBCMAN ####[facility] Kxouzfeoyv37[address] [place] [address]Dr. Elba AnthonyLYMPHM%3.0 % Critically low20.5-60.0The [facility] HospitalComment on above:Performed By: #### CBCMAN ####[facility] Zkvjplufyf5[address] [place] [address]Dr. Elba AnthonyMCH23.2 pgCritically low25.9-34.0The [facility] Comment on above:Performed By: #### CBCMAN ####[facility] Wycpcvtgzk3275 [place] [address]Dr. Elba AnthonyMCHC29.4 g/dlCritically low 29.9-35.2[facility] FoundationComment on above:Performed By: #### CBCMAN ####[facility] Assbcfagwh65[address] [place] [address]Dr. Elba AnthonyMCV79.0 fLCritically low80.0-94.0The [facility] HospitalComment on above:Performed By: #### CBCMAN ####[facility] Acefyeizmd26[address] [place] [address]Dr. Elba AnthonyMETAMYELOCYTE #0.1 103/ulNoLima City HospitalComment on above:Performed By: #### CBCMAN ####[facility] Gazbehwxuc81[address] [place] [address]Dr. Elba Anthony METAMYELOCYTE %1 %NormalThe [facility] HospitalComment on above:Performed By: #### CBCMAN ####[facility] Yxtzhhcwne58[address] [place] [address]Dr. Elba AnthonyMICROCYTOSISSAvita Health System Galion HospitalComment on above:Performed By: #### CBCMAN ####[facility] Cxfiimvyov[address] [place] [address]Dr. Yilan ChangMONOM#0.32 103/ulNormal0.30-0.80The [facility] HospitalComment on above:Performed By: #### CBCVINCENT ####[facility] Eiietxsmiy[address] [place] [address]Dr. Yilan Anthony MONOM%3.0 %Normal1.7-12.0The [facility] HospitalComment on above:Performed By: #### CBCVINCENT ####[facility] Qijqptlvvu7[address] [place] [address]Dr. Yilan ChangMPV9.9 fLNormal9.5-13.5The [facility] HospitalComment on above:Performed By: #### CBCVINCENT ####[facility] Qyikzxksna1330 [place] [address]Dr. Yilan ChangMYELOCYTE #0.0 103/ulNormAshtabula County Medical CenterComment on above:Performed By: #### CBCVINCENT ####[facility] Ypdgsxikko08[address] [place] [address]Dr. Yilan ChangMYELOCYTE %0 % NormalThe [facility] HospitalComment on above:Performed By: #### CBCVINCENT ####[facility] Ougxzcocax0334 [place] [address]Dr. Yilan AfdezRPGB6LnfoyfDuxLima City HospitalComment on above:Performed By: #### CBCVINCENT ####[facility] Fnwxbmgjgn0279 [place] [address]Dr. Yilan MmyqmATF538 103/ozTqvage210-514Syi [facility] HospitalComment on above:Performed By: #### CBCMAN ####[facility] Ekxftbaqfc5610 [place] [address]Dr. Yilan ChangRBC3.96 106/ulCritically low4.70-6.10 The [facility] HospitalComment on above:Performed By: #### CBCVINCENT ####[facility] Rkvykcujnx[address] [place], [place] [address]Dr. Yilan ChangRDW 19.8 %Critically high11.0-15.0The [facility] HospitalComment on above:Performed By: #### CBCMAN ####[facility] Gjbgghukem79[address] [place] [address]Dr. Elba MccabeG #9.52 103/ulCritically high1.40-6.50The [facility] HospitalComment on above:Performed By: #### CBCMAN ####[facility] Jjseoxqfvj8503 [place] [address]Dr. Elba MccabeG %89.0 % Critically high43.0-75.0The [facility] HospitalComment on above:Performed By: #### CBCMAN ####[facility] Qlnezkkous9041 [place] [address]Dr. Elba AnthonyWBC10.7 103/ulNormal4.0-11.0The [facility] HospitalComment on above:Performed By: #### CBCVINCENT ####[facility] Stolemjcgk64[address] [place], [place] [address]Dr. Elba AnthonyCT CSPINE WO CONon 31-46-8491YQ CSPINE WO CONNormalCleveland Clinic FoundationCT HEAD WO CONon 30-28-1765GW HEAD WO CONNormal The [facility] HospitalPROF 14(COMP METB)on 25-32-2274Ogsklju [Mass/Vol]2.8 g/dL Critically low3.4-5.0The [facility] HospitalComment on above:Performed By: #### CMP ####[facility] Ljdzkqymge47[address] [place] [address]Dr. Elba AnthonyAlbumin/Globulin [Mass ratio]0.6 {ratio}NormalThe [facility] Comment on above:Performed By: #### CMP ####[facility] Hduahccxbe[address] [place] [address]Dr.Elba AnthonyALP [Catalytic activity/Vol]81 U/JPdzead49-394Yie [facility] HospitalComment on above:Performed By: #### CMP ####[facility] Vacjxukcsk[address] [place] [address]Dr. Elba AnthonyALT [Catalytic activity/Vol]15 U/LCritically krd43-05Ymz [facility] HospitalComment on above:Performed By: #### CMP ####[facility] Fxxccimgbn11[address] [place] [id number].Yilan ChangAnion gap [Moles/Vol]9.2 mmol/LNormalThe [facility] HospitalComment on above:Performed By: #### CMP ####[facility] Jiihlboamo23[address] [place] [id number].Yilan ChangAST [Catalytic activity/Vol]21 U/AXwbuin50-90Xkw [facility] HospitalComment on above:Performed By: #### CMP ####[facility] Elnatwtvje49[address] [place] [address]Dr.Yilan ChangBilirubin [Mass/Vol]1.7 mg/dLCritically high0.2-1.0The [facility] HospitalComment on above: Performed By: #### CMP ####[facility] Awawhuqimz[address] [place], [place] [address]Dr.Yilan ChangCalcium [Mass/Vol]9.0 mg/dLNormal 8.5-10.1The [facility] HospitalComment on above:Performed By: #### CMP ####[facility] Kxppymeaxo[address] [place], [place] [address]Dr. Yilan ChangChloride [Moles/Vol]99 mmol/QTpybcw71-468Ush [facility] HospitalComveterans affairs medical center on above:Performed By: #### CMP ####[facility] Awwtigenjy[address] [place], [place] [address]Dr.Yilan ChangCO2 [Moles/Vol]30.7 mmol/LNormal 21.0-32.0The [facility] HospitalComment on above:Performed By: #### CMP ####[facility] Mbbyrjzqfs[address] [place], [place] [address]Dr. Yilan ChangCreatinine [Mass/Vol]2.60 mg/dLCritically high0.70-1.30The [facility] HospitalComment on above:Performed By: #### CMP ####[facility] Obweqysizx[address] [place], [place] [address]Dr.Yilan ChangEGFR-AF UGAZAAAB28 mL/min/1.49g0Tzrjaqxtai low>=60The [facility] HospitalComment on above: Performed By: #### CMP ####[facility] Vndymsvpup[address] [place] [address]Dr.Yilan ChangEGFR-NON AF SFVIOCGY05 mL/min/1.73m2 Critically low>=60The [facility] HospitalComment on above:Performed By: #### CMP ####[facility] Vcullrbkvd53[address] [place] [address]Dr. Yilan ChangGlobulin (S) [Mass/Vol]4.4 g/dLNormalThe [facility] HospitalComment on above:Performed By: #### CMP ####[facility] Mvlejblzaj76[address] [place], [place] [address]Dr.Yilan ChangGlucose [Mass/Vol]130 mg/dLCritically pumf08-105Wgf [facility] HospitalComment on above:Performed By: #### CMP ####[facility] Nvzhacgslx[address] [place], [place] [address]Dr. Yilan ChangPotassium [Moles/Vol]3.9 mmol/LNormal3.5-5.1The [facility] Comment on above:Performed By: #### CMP ####[facility] Tndzxdkmst[address] [place], [place] [address]Dr.Yilan ChangProtein [Mass/Vol]7.2 g/dL Normal6.4-8.2The [facility] HospitalComment on above:Performed By: #### CMP ####[facility] Oyoseuetxh0439[address] [place], [place] [address]Dr. Yilan ChangSodium [Moles/Vol]135 mmol/LCritically bhj749-743Zeb [facility] HospitalComment on above:Performed By: #### CMP ####[facility] Cbcgvgwmul1818[address] [place], [place] [address]Dr.Yilan ChangUrea nitrogen [Mass/Vol]41.0 mg/dLCritically high7.0-18.0The [facility] HospitalComment on above:Performed By: #### CMP ####[facility] Sfmllydrij[address] [place], [place] [address]Dr.Yilan ChangUrea nitrogen/Creatinine [Mass ratio] 15.8 mg/mgNormalThe [facility] HospitalComment on above:Performed By: #### CMP ####[facility] Tdhaaahmxg1125[address] [place], [place] [address]Dr. Yilan ChangXR CHEST 1 Von 59-84-7260CG CHEST 1 VNormalCleveland Clinic FoundationBNPon 13-27-3638Fxayvkkmgkr peptide B (Bld) [Mass/Vol]9964.0 pg/mLCritically high <=900.0The [facility] HospitalComment on above:Performed By: #### CMP, BNP ####[facility] Ictgrskdzq0733[address] [place], [place] [address]Dr. Yilan ChangCBC W MANUAL DIFFon 52-82-1608EYJEPRIF LYMPH #NormalThe [facility] HospitalComment on above:Performed By: #### CBCMAN ####[facility] Ffxxcvsbmk1788[address] [place], [place] [address]Dr. Yilan ChangATYPICAL LYMPH %NormalThe [facility] HospitalComment on above:Performed By: #### CBCMAN ####[facility] Pdettvuygl799[address] [place], [place] [address]Dr. Yilan ChangBAND #0.1 103/ulNormal0.0-0.3The [facility] HospitalComment on above: Performed By: #### CBCMAN ####[facility] Coejdgmzcw2934[address] [place], [place] [address]Dr. Yilan ChangBAND %1 %Normal0-5The [facility] Comment on above:Performed By: #### CBCMAN ####[facility] Brzouksinr1534[address] [place], [place] [address]Dr. Yilan ChangBASOM #0.00 103/ulNormal 0.00-0.10The [facility] HospitalComment on above:Performed By: #### CBCMAN ####[facility] Emodnrprgd9195[address] [place], [place] [address]Dr. Yilan ChangBASOM %0.0 %Critically low0.2-2.0The [facility] HospitalComment on above:Performed By: #### CBCMAN ####[facility] Gxncfpyqyn[address] [place], [place] [address]Dr. Yilan ChangBLAST #NormalThe [facility] Comment on above:Performed By: #### CBCMAN ####[facility] Kavvjuvudr60[address] [place] [address]Dr. Yilan ChangBLAST %NormalThe [facility] HospitalComment on above:Performed By: #### CBCMAN ####[facility] Nixhezxato74[address] [place] [address]Dr. Yilan ChangCORRECTED WBC Normal4.0-11.0The [facility] HospitalComment on above:Performed By: #### CBCMAN ####[facility] Bcphrjmeee9[address] [place] [address]Dr. Yilan ChangEOS #0.07 103/ulNormal0.00-0.70The [facility] HospitalComment on above: Performed By: #### CBCMAN ####[facility] Jmqilxxfuy668[address] [place], [place] [address]Dr. Yilan ChangEOS%1.0 %Normal0.9-7.0The [facility] HospitalComment on above:Performed By: #### CBCMAN ####[facility] Trhvswvevg8627[address] [place], [place] [address]Dr. Yilan YkkxbJKU50.4 % Critically low42.0-54.0The [facility] HospitalComment on above:Performed By: #### CBCMAN ####[facility] Xdjsdvasyd6958[address] [place], [place] [address]Dr. Yilan ChangHGB9.8 g/dlCritically low14.0-18.0The [facility] Comment on above:Performed By: #### CBCMAN ####[facility] Yknakrweiv[address] [place], [place] [address]Dr. Yilan ChangLYMPHM #0.44 103/ulCritically low1.20-3.80The [facility] HospitalComment on above:Performed By: #### CBCMAN ####[facility] Ajfcpigfvw8925[address] [place], [place] [address]Dr. Yilan ChangLYMPHM%6.0 %Critically low20.5-60.0The [facility] HospitalComment on above:Performed By: #### CBCVINCENT ####[facility] Wiaeqdaurl9[address] [place] [address]Dr. Yilan WwzbkCZO34.1 pgCritically low25.9-34.0The [facility] HospitalComment on above:Performed By: #### JESSICA ####[facility] Spvhbkhwqs[address] [place] [address]Dr. Yilan ChangMCHC 29.3 g/dlCritically low29.9-35.2The [facility] HospitalComment on above:Performed By: #### CBCVINCENT ####[facility] Okjzssytht9[address] [place] [address]Dr. Yilan AavjnFYZ02.1 wCUptxmr21.0-94.0The [facility] HospitalComment on above:Performed By: #### CBCVINCENT ####[facility] Stspwaitdd399[address] [place], [place] [address]Dr. Yilan ChangMETAMYELOCYTE #NormalThe [facility] HospitalComment on above:Performed By: #### CBCVINCENT ####[facility] Mvsrsccgjr6037[address] [place], [place] [address]Dr. Yilan ChangMETAMYELOCYTE %NormalThe [facility] HospitalComment on above:Performed By: #### CBCVINCENT ####[facility] Azuibctqzn3117[address] [place], [place] [address]Dr. Yilan ChangMONOM#0.52 103/ulNormal0.30-0.80The [facility] HospitalComment on above:Performed By: #### CBCVINCENT ####[facility] Qijwrktcws[address] [place], [place] [address]Dr. Yilan ChangMONOM%7.0 %Normal1.7-12.0The [facility] HospitalComment on above:Performed By: #### CBCVINCENT ####[facility] Dcbhlssfhy3885[address] [place], [place] [address]Dr. Yilan ChangMPV9.5 fL Normal9.5-13.5The [facility] HospitalComment on above:Performed By: #### CBCVINCENT ####[facility] Qdgsrrxbwq6473[address] [place], [place] [address]Dr. Yilan ChangMYELOCYTE #NormalThe [facility] HospitalComment on above:Performed By: #### CBCMAN ####[facility] Fxlfnscegk3853 [place] [id number]. Yilan ChangMYELOCYTE %NormalThe [facility] HospitalComment on above: Performed By: #### CBCMAN ####[facility] Nxnafhesuf5933 [place] [address]Dr. Yilan ChangNRBCNormalThe [facility] HospitalComment on above:Performed By: #### CBCMAN ####[facility] Laeeoaywst33[address] [place] [address]Dr. Yilan GliorGOZ483 103/abSydcap239-569Gaq [facility] HospitalComment on above:Performed By: #### CBCMAN ####[facility] Mmztuhewlp1067[address] [place], [place] [address]Dr. Yilan ChangRBC 4.07 106/ulCritically low4.70-6.10The [facility] HospitalComment on above: Performed By: #### CBCMAN ####[facility] Bdigtlpexy5767 [place] [address]Dr. Yilan IqzvaROX43.7 %Critically high11.0-15.0The [facility] HospitalComment on above:Performed By: #### CBCVINCENT ####[facility] Awhwstqdfj6965[address] [place], [place] [address]Dr. Yilan ChangSEG # 6.29 103/ulNormal1.40-6.50The [facility] HospitalComment on above:Performed By: #### CBCMAN ####[facility] Raydbpdsjy[address] [place], [place] [address]Dr. Yilan ChangSEG %85.0 %Critically high43.0-75.0The [facility] Comment on above:Performed By: #### CBCMAN ####[facility] Teygnqeplj8[address] [place], [place] [address]Dr. Yilan ChangWBC7.4 103/ulNormal4.0-11.0 The [facility] HospitalComment on above:Performed By: #### CBCMAN ####[facility] Cpuayxxvfc918[address] [place], [place] [address]Dr. Yilan ChangER URINE PROFILEon 27-39-1303Fovgsispd Ql (U)NegativeNormalNEGATIVECleveland Clinic FoundationComment on above:Performed By: #### ERUR ####[facility] Klslzrlaow2332[address] [place], [place] [address]Dr. Yilan ChangClarity (U) CLEARNormalCLEARKindred Healthcare HospitalComment on above:Performed By: #### ERUR ####[facility] Teaojtiptn939[address] [place], [place] [address]Dr. Yilan ChangColor (U)LT. YELLOWNormalYELLOWCleveland Clinic FoundationComment on above: Performed By: #### ERUR ####[facility] Xdxjqcmpkw4276[address] [place], [place] [address]Dr. Yilan ChangERUAHDA micrscopic examination will be performed if indicated.NormalCleveland Clinic FoundationComment on above:Performed By: #### ERUR ####[facility] Fnuyueuxfu2611[address] [place], [place] [address]Dr. Yilan ChangGlucose Ql (U)NegativeNormalNEGATIVECleveland Clinic Foundation Comment on above:Performed By: #### ERUR ####[facility] Numzchbwpo175[address] [place], [place] [address]Dr. Yilan ChangHemoglobin Ql (U)Negative NormalNEGATIVECleveland Clinic FoundationComment on above:Performed By: #### ERUR ####[facility] Urkyfknczr8615[address] [place], [place] [address]Dr. Yilan ChangKetones Ql (U)NegativeNormalNEGATIVEKindred Healthcare HospitalComment on above:Performed By: #### ERUR ####[facility] Ddbnhowpgu3888[address] [place], [place] [address]Dr. Yilan ChangLEUKOCYTESNegativeNormalNEGATIVECleveland Clinic FoundationComment on above:Performed By: #### ERUR ####[facility] Qiybydirrx645[address] [place], [place] [address]Dr. Yilan ChangNitrite Ql (U) NegativeNormalNEGATIVECleveland Clinic FoundationComment on above:Performed By: #### ERUR ####[facility] Bnfoespklu33[address] [place] [address]Dr. Yilan ChangpH (U)5.0 [pH]Normal5-9The [facility] HospitalComment on above:Performed By: #### ERUR ####[facility] Pmrnwgryat94[address] [place], [place] [address]Dr. Yilan ChangSPEC GRAVITY<=1.005Abnormal 1.005-<=1.025The [facility] HospitalComment on above:Performed By: #### ERUR ####[facility] Qpthdetjvw475[address] [place], [place] [address]Dr. Yilan ChangUA PROTEINNegativeNormalNEGATIVE/ TRACEThe [facility] HospitalComment on above:Performed By: #### ERUR ####[facility] Hyzpmqtzpe7439[address] [place], [place] [address]Dr. Nereydalan ChangUR MICRO INDNOT INDICATEDNormalThe [facility] HospitalComment on above:Performed By: #### ERUR ####[facility] Jxbkptwivo9139[address] [place], [place] [address]Dr. Yilan ChangUrobilinogen Qn (U)0.2 {Caden'U}/dLNormal0.2 - 1.0The [facility] HospitalComment on above: Performed By: #### ERUR ####[facility] Aqexhyxruy[address] [place], [place] [address]Dr. Nereydalan ChangPROF 14(COMP METB)on 32-91-5733Zvnqukx [Mass/Vol]2.9 g/dLCritically low3.4-5.0The [facility] HospitalComment on above: Performed By: #### CMP, BNP ####[facility] Kvjswdqzjy1009[address] [place], [place] [address]Dr. Nereydalan ChangAlbumin/Globulin [Mass ratio]0.6 {ratio}NormalThe [facility] HospitalComment on above:Performed By: #### CMP, BNP ####[facility] Wpdhsptusk103[address] [place], [place] [address]Dr. Nereydalan ChangALP [Catalytic activity/Vol]105 U/IHzdefg33-022Sxn [facility] Comment on above:Performed By: #### CMP, BNP ####[facility] Fjerlghbrs30[address] [place], [place] [address]Dr. Yilan ChangALT [Catalytic activity/Vol]27 U/NKbgphl98-64Dmg [facility] HospitalComment on above:Performed By: #### CMP, BNP ####[facility] Pzjgbxbajw5294[address] [place], [place] [address]Dr. Yilan ChangAnion gap [Moles/Vol]10.7 mmol/LNormalThe [facility] HospitalComment on above:Performed By: #### CMP, BNP ####[facility] Oqiuhupkfl514[address] [place], [place] [address]Dr. Yilan ChangAST [Catalytic activity/Vol]20 U/PLrkfjf52-82Msh [facility] HospitalComment on above:Performed By: #### CMP, BNP ####[facility] Cmhsfpihkb8836[address] [place], [place] [address]Dr. Yilan ChangBilirubin [Mass/Vol]1.1 mg/dLCritically high0.2-1.0The [facility] HospitalComment on above:Performed By: #### CMP, BNP ####[facility] Mgcccrjzoo7147[address] [place], [place] [address]Dr. Yilan Anthony Calcium [Mass/Vol]8.2 mg/dLCritically low8.5-10.1The [facility] HospitalComment on above:Performed By: #### CMP, BNP ####[facility] Gpfxgcicoj040[address] [place], [place] [address]Dr. Yilan ChangChloride [Moles/Vol]99 mmol/L Togloc61-713Fsv [facility] HospitalComment on above:Performed By: #### CMP, BNP ####[facility] Nfnxobzwsz2912[address] [place], [place] [address]Dr. Yilan ChangCO2 [Moles/Vol]28.6 mmol/JSmueyx10.0-32.0The [facility] HospitalComment on above:Performed By: #### CMP, BNP ####[facility] Pjksiiavyz2779[address] [place], [place] [address]Dr. Yilan ChangCreatinine [Mass/Vol]2.06 mg/dL Critically high0.70-1.30The [facility] HospitalComment on above:Performed By: #### CMP, BNP ####[facility] Jajezjpaay[address] [place] [address]Dr. Yilan ChangEGFR-AF JLWTMOSA53 mL/min/1.29n9Kmlsexyxvl low>=60The [facility] HospitalComment on above:Performed By: #### CMP, BNP ####[facility] Irosntiusf8222[address] [place], [place] [address]Dr. Yilan ChangEGFR- NON AF FKMLRIKH83 mL/min/1.43o8Gfwvbgkviy low>=60The [facility] HospitalComment on above:Performed By: #### CMP, BNP ####[facility] Isznzafruu0472[address] [place], [place] [address]Dr. Yilan ChangGlobulin (S) [Mass/Vol]4.6 g/dL NormalThe [facility] HospitalComment on above:Performed By: #### CMP, BNP ####[facility] Kdvamucubf5248[address] [place], [place] [address]Dr. Nereydalan ChangGlucose [Mass/Vol]113 mg/dLCritically nlvf33-792Vfq [facility] Comment on above:Performed By: #### CMP, BNP ####[facility] Rberbglvko4048[address] [place], [place] [address]Dr. Neerydalan ChangPotassium [Moles/Vol]4.3 mmol/LNormal3.5-5.1The [facility] HospitalComment on above: Performed By: #### CMP, BNP ####[facility] Bpmhnyxzfs5268[address] [place], [place] [address]Dr. Yilan ChangProtein [Mass/Vol]7.5 g/dLNormal6.1-8.2 The [facility] HospitalComment on above:Performed By: #### CMP, BNP ####[facility] Midrwpcjgh3704[address] [place], [place] [address]Dr. Nereydalan Anthony Sodium [Moles/Vol]134 mmol/LCritically yln397-902Jws [facility] HospitalComment on above:Performed By: #### CMP, BNP ####[facility] Wzdojkhgzz17[address] [place] [address]Dr. Nereydalan ChangUrea nitrogen [Mass/Vol]48.0 mg/dL Critically high7.0-18.0The [facility] HospitalComment on above:Performed By: #### CMP, BNP ####[facility] Aycllcwujs11[address] [place] [address]Dr. Yilan ChangUrea nitrogen/Creatinine [Mass ratio]23.3 mg/mgNoLima City HospitalComment on above:Performed By: #### CMP, BNP ####[facility] Mvtjoygvqd214[address] [place], [place] [address]Dr. Yilan ChangUS ARLIN DOP LEG LTon 50-82-9709DU ARLIN DOP LEG The [facility] HospitalXR CHEST 1 Von 63-52-2956NH CHEST 1 VNormalThe [facility] AUTO DIFFon 82-72-8208UCMW #0.0 103/ulNormal0.0-0.1The [facility] HospitalComment on above: Performed By: #### CBC ####[facility] Htbzpxxyiu4934[address] [place], [place] [address]Dr.Nereydalan ChangBasophils/100 WBC (Bld)0.1 %Critically low0.2-2.0The [facility] HospitalComment on above:Performed By: #### CBC ####[facility] Nfjqptjqag8200[address] [place], [place] [address]Dr. Yilan ChangEO #0.1 103/ulNormal0.0-0.7The [facility] HospitalComment on above: Performed By: #### CBC ####[facility] Wlwvhvonhl1332[address] [place], [place] [address]Dr.Nereydalan ChangEosinophils/100 WBC (Bld)1.2 %Normal 0.9-7.0The [facility] HospitalComment on above:Performed By: #### CBC ####[facility] Cfasxhxsph0111[address] [place], [place] [address]Dr.Elba Anthony Erythrocyte distribution width (RBC) [Ratio]18.6 %Critically high11.0-15.0The [facility] HospitalComment on above:Performed By: #### CBC ####[facility] Mdsefphthr4309[address] [place], [place] [address]Dr.Elba AnthonyHematocrit (Bld) [Volume fraction]29.8 %Critically low42.0-54.0The [facility] HospitalComment on above:Performed By: #### CBC ####[facility] Scwkvpemdm529[address] [place], [place] [address]Dr.Elba AnthonyHemoglobin (Bld) [Mass/Vol]9.0 g/dL Critically low14.0-18.0The [facility] HospitalComment on above:Performed By: #### CBC ####[facility] Elwrkbdbtb0472[address] [place], [place] [address]Dr. Elba ChangIG #0.05 10e3/ulCritically high0.00-0.03The [facility] HospitalComment on above:Performed By: #### CBC ####[facility] Jbwtrbcvyx1098[address] [place], [place] [address]Dr.Elba AnthonyIG %0.6 %Critically high0.0-0.5The [facility] HospitalComment on above:Performed By: #### CBC ####[facility] Pusqiljtvg173[address] [place], [place] [address]Dr.Elba AnthonyLYMPH #0.4 103/ulCritically low1.2-3.8The [facility] HospitalComment on above:Performed By: #### CBC ####[facility] Lpjqdkrauj4045[address] [place], [place] [address]Dr.Elba AnthonyLymphocytes/100 WBC (Bld)4.0 %Critically low20.5-60.0The [facility] HospitalComment on above:Performed By: #### CBC ####[facility] Resxogsgqq624[address] [place], [place] [address]Dr.Elba AnthonyMANUAL DIFF REQ NONormalThe [facility] HospitalComment on above:Performed By: #### CBC ####[facility] Jdaticswdb6592[address] [place], [place] [address]Dr. Elba AnthonyMCH (RBC) [Entitic mass]25.2 pgCritically low25.9-34.0The [facility] HospitalComment on above:Performed By: #### CBC ####[facility] Zpclswsrja4564[address] [place], [place] [address]Dr.Elba AnthonyMCHC (RBC) [Mass/Vol]30.2 g/jZVchjly94.9-35.2The [facility] HospitalComment on above: Performed By: #### CBC ####[facility] Otvfkncvch4845[address] [place], [place] [address]Dr.Elba AnthonyMCV (RBC) [Entitic vol]83.5 fLNormal 80.0-94.0The [facility] HospitalComment on above:Performed By: #### CBC ####[facility] Yammoaxpjf[address] [place], [place] [address]Dr. Elba AnthonyMONO #0.9 103/ulCritically high0.3-0.8The [facility] HospitalComment on above:Performed By: #### CBC ####[facility] Bfmcnfnrie[address] [place], [place] [address]Dr.Nereydasiobhan RajMonocytes/100 WBC (Bld)9.7 %Normal 1.7-12.0The [facility] HospitalComment on above:Performed By: #### CBC ####[facility] Rdfudthhee56[address] [place], [place] [address]Dr. Elba AnthonyNEUT #7.6 103/ulCritically high1.4-6.5The [facility] HospitalComment on above:Performed By: #### CBC ####[facility] Qjfsffzfzu60[address] [place], [place] [address]Dr.Elba AnthonyNeutrophils/100 WBC (Bld)84.4 % Critically high43.0-75.0The [facility] HospitalComment on above:Performed By: #### CBC ####[facility] Ntaglajrvp[address] [place], [place] [address]Dr. Elba AnthonyPlatelet mean volume (Bld) [Entitic vol]10.0 fLNormal9.5-13.5The [facility] HospitalComment on above:Performed By: #### CBC ####[facility] [address]qpmjhiblf[address] [place] [address]Dr.Elba AnthonyPLT154 103/ul Npgbhk059-086Lag [facility] HospitalComment on above:Performed By: #### CBC ####[facility] Pcjirqedeh[address] [place], [place] [address]Dr. Elba AnthonyRBC3.57 106/ulCritically low4.70-6.10The [facility] HospitalComment on above:Performed By: #### CBC ####[facility] Mkqpblewbf1893[address] [place], [place] [address]Dr.Elba ChangWBC9.0 103/ulNormal4.0-11.0The [facility] HospitalComment on above:Performed By: #### CBC ####[facility] Uyctkqjubz7[address] [place], [place] [address]Dr.Elba AnthonyPROF 14(COMP METB)on [id number] [Mass/Vol]2.3 g/dLCritically low3.4-5.0The [facility] HospitalComment on above:Performed By: #### CMP ####[facility] Lipcbbaghz6868[address] [place], [place] [address]Dr.Elba Anthony Albumin/Globulin [Mass ratio]0.6 {ratio}NormalThe [facility] HospitalComveterans affairs medical center on above:Performed By: #### CMP ####[facility] Zghiphsgyo9092[address] [place], [place] [address]Dr.Elba ChangALP [Catalytic activity/Vol]75 U/LNormal 46-116The [facility] HospitalComment on above:Performed By: #### CMP ####[facility] Uhknxgeuuc224[address] [place], [place] [address]Dr.Elba ChangALT [Catalytic activity/Vol]30 U/MDizlxs87-98Oje [facility] HospitalComment on above: Performed By: #### CMP ####[facility] Umnevffhez8101[address] [place], [place] [address]Dr.Elba AnthonyAnion gap [Moles/Vol]11.6 mmol/LNormal The [facility] HospitalComment on above:Performed By: #### CMP ####[facility] Kbjmcmsuck[address] [place] [address]Dr.Yilan ChangAST [Catalytic activity/Vol]26 U/GDtchvx07-77Gnj [facility] HospitalComment on above: Performed By: #### CMP ####[facility] Loijufefpt4938[address] [place], [place] [address]Dr.Yisiobhan ChangBilirubin [Mass/Vol]0.9 mg/dLNormal 0.2-1.3The [facility] HospitalComment on above:Performed By: #### CMP ####[facility] Eanrsrxwac0724[address] [place], [place] [address]Dr.Yisiobhan Anthony Calcium [Mass/Vol]8.1 mg/dLCritically low8.5-10.1The [facility] HospitalComment on above:Performed By: #### CMP ####[facility] Eonnqcoeqq2453[address] [place], [place] [address]Dr.Yilan ChangChloride [Moles/Vol]101 mmol/LNormal 98-107The [facility] HospitalComveterans affairs medical center on above:Performed By: #### CMP ####[facility] Vrzlndgppn5[address] [place], [place] [address]Dr.Yilan ChangCO2 [Moles/Vol]26.2 mmol/NBzxjka92.0-30.0The [facility] HospitalComment on above: Performed By: #### CMP ####[facility] Qesjptgjlt6197[address] [place], [place] [address]Dr.Yilan ChangCreatinine [Mass/Vol]2.26 mg/dL Critically high0.66-1.25The [facility] HospitalComment on above:Performed By: #### CMP ####[facility] Yttdkaknln[address] [place], [place] [address]Dr.Yilan ChangEGFR-AF FPEDCYTN84 mL/min/1.90w2Asqrwitwim low>=60The [facility] HospitalComment on above:Performed By: #### CMP ####[facility] Upttavkuzr3442[address] [place], [place] [address]Dr.Yilan ChangEGFR-NON AF EKKGQPZC53 mL/min/1.95g8Nwfywlztlp low>=60The [facility] HospitalComment on above: Performed By: #### CMP ####[facility] Tcbbgijonz6955[address] [place], [place] [address]Dr.Elba AnthonyGlobulin (S) [Mass/Vol]4.1 g/dLNoLima City HospitalComveterans affairs medical center on above:Performed By: #### CMP ####[facility] Fdwfehiwtn524[address] [place], [place] [address]Dr.Elba ChangGlucose [Mass/Vol]110 mg/dLCritically emfz64-186Mba [facility] on above: Performed By: #### CMP ####[facility] Yletblovxt5604[address] [place], [place] [address]Dr.Elba ChangPotassium [Moles/Vol]3.8 mmol/LNormal 3.4-5.0The [facility] on above:Performed By: #### CMP ####[facility] Oipwimwsss3527[address] [place], [place] [address]Dr.Elba Anthony Protein [Mass/Vol]6.4 g/dLNormal6.1-8.2The [facility] HospitalComveterans affairs medical center on above: Performed By: #### CMP ####[facility] Hgpueflffk4608[address] [place], [place] [address]Dr.Elba ChangSodium [Moles/Vol]135 mmol/LCritically ony671-289Hhx [facility] on above:Performed By: #### CMP ####[facility] Xbeyllvsuv4578[address] [place], [place] [address]Dr. Nereydalan ChangUrea nitrogen [Mass/Vol]49.0 mg/dLCritically high7.0-18.0The [facility] on above:Performed By: #### CMP ####[facility] Ptpmdqwcdz6587[address] [place], [place] [address]Dr.Nereydalan ChangUrea nitrogen/Creatinine [Mass ratio]21.7 mg/mgNoEast [facility] on above:Performed By: #### CMP ####[facility] Mjsgszoidn2275[address] [place], [place] [address]Dr.Elba AnthonyBLOOD CULTURE ID/SENSon [id number] ID + SusceptFinal reportAbnormalThe [facility] HospitalComment on above:Performed By: #### CXPOSBL ####[facility] Uhcqyoyrvn17[address] [place], [place] [address]Dr. Elba AnthonyAntimicrobial SusceptibilityCommentNoLima City HospitalComveterans affairs medical center on above:Result Comment: S = Susceptible; I = Intermediate; R = Resistant P = Positive; N = Negative MICS are expressed in micrograms per mL Antibiotic RSLT#1 RSLT#2 RSLT#3 RSLT#4Amikacin SCefepime SCeftazidime SCiprofloxacin SGentamicin SImipenem SLevofloxacin SMeropenem SPiperacillin STicarcillin STobramycin SPerformed By: #### CXPOSBL ####[facility] Uhsifwcxcn1539[address] [place], [place] [address]Dr. Elba AnthonyResult 1 CommentAbGlenbeigh HospitalComveterans affairs medical center on above:Result Comment: Pseudomonas aeruginosaReceived aerobic bottle only.Performed By: #### CXPOSBL ####[facility] Cidbwdeluc7787[address] [place], [place] [address]Dr. Elba Anthony Result Comment: Pseudomonas aeruginosaReceived anaerobic bottle only.CBC AUTO DIFFon [id number] #0.0 103/ulNormal0.0-0.1The [facility] HospitalComment on above:Performed By: #### CBC ####[facility] Wwbntmsuhs617[address] [place], [place] [address]Dr.Elba ChangBasophils/100 WBC (Bld)0.3 %Normal 0.2-2.0The [facility] HospitalComment on above:Performed By: #### CBC ####[facility] Wkyyxcnjbx9063[address] [place], [place] [address]Dr.Nereydalan ChangEO # 0.1 103/ulNormal0.0-0.7The [facility] HospitalComveterans affairs medical center on above:Performed By: #### CBC ####[facility] Kxekrxuiua944[address] [place], [place] [address]Dr. Elba ChangEosinophils/100 WBC (Bld)1.7 %Normal0.9-7.0The [facility] Comment on above:Performed By: #### CBC ####[facility] [address]lh[address] [place] [address]Dr.Elba ChangErythrocyte distribution width (RBC) [Ratio]18.8 %Critically high11.0-15.0The [facility] HospitalComment on above:Performed By: #### CBC ####[facility] Pcwrtnvczr[address] [place], [place] [address]Dr.Elba AnthonyHematocrit (Bld) [Volume fraction]28.8 % Critically low42.0-54.0The [facility] HospitalComment on above:Performed By: #### CBC ####[facility] Uxaoomxaav3778[address] [place], [place] [address]Dr. Elba ChangHemoglobin (Bld) [Mass/Vol]8.6 g/dLCritically low14.0-18.0The [facility] HospitalComment on above:Performed By: #### CBC ####[facility] Fzcoemgwqj6179[address] [place], [place] [address]Dr.Elba AnthonyIG #0.05 10e3/ulCritically high0.00-0.03The [facility] HospitalComment on above:Performed By: #### CBC ####[facility] Keivlybjrm1869[address] [place], [place] [address]Dr.Elba AnthonyIG %0.7 %Critically high0.0-0.5The [facility] HospitalComment on above:Performed By: #### CBC ####[facility] Nglcakpfvh8701[address] [place], [place] [address]Dr.Elba AnthonyLYMPH #0.4 103/ulCritically low1.2-3.8 The [facility] HospitalComment on above:Performed By: #### CBC ####[facility] Jmeqeixztv4745[address] [place], [place] [address]Dr.Elba Anthony Lymphocytes/100 WBC (Bld)5.4 %Critically low20.5-60.0The [facility] Comment on above:Performed By: #### CBC ####[facility] Mzhmgdiegf3255[address] [place], [place] [address]Dr.Elba AtnhonyMANUAL DIFF REQNONormalThe [facility] HospitalComment on above:Performed By: #### CBC ####[facility] Bmyrlonlbv7[address] [place] [address]Dr.Elba AnthonyH (RBC) [Entitic mass]25.0 pgCritically low25.9-34.0The [facility] HospitalComment on above:Performed By: #### CBC ####[facility] Hldtzsluef4007[address] [place], [place] [address]Dr.Elba AnthonyWH[facility] PLAINS [facility] (RBC) [Mass/Vol]29.9 g/dLNormal 29.9-35.2The [facility] HospitalComment on above:Performed By: #### CBC ####[facility] Cxwxsjjjds1085[address] [place], [place] [address]Dr. Elba AnthonyV (RBC) [Entitic vol]83.7 sNLpdmpm40.0-94.0The [facility] Comment on above:Performed By: #### CBC ####[facility] Xptqcthrog7479[address] [place], [place] [address]DrJessica AnthonyMONO #0.7 103/ulNormal0.3-0.8 The [facility] HospitalComment on above:Performed By: #### CBC ####[facility] Bqisqtnadi6386[address] [place], [place] [address]DrJessica Anthony Monocytes/100 WBC (Bld)10.2 %Normal1.7-12.0The [facility] HospitalComment on above:Performed By: #### CBC ####[facility] Pciswfehnm4117[address] [place], [place] [address]DrJessica AnthonyNEUT #5.9 103/ulNormal1.4-6.5The [facility] HospitalComment on above:Performed By: #### CBC ####[facility] Uquorgigyk2028[address] [place], [place] [address]DrJessica AnthonyNeutrophils/100 WBC (Bld)81.7 %Critically high43.0-75.0The [facility] HospitalComment on above: Performed By: #### CBC ####[facility] Yxsxnwsvie380[address] [place], [place] [address]DrJessica ChangPlatelet mean volume (Bld) [Entitic vol] 10.8 fLNormal9.5-13.5The [facility] HospitalComment on above:Performed By: #### CBC ####[facility] Sfotygfxlm6[address] [place] [address]Dr. Elba TjjcmPUB444 103/wzRofsji758-609Flq [facility] HospitalComment on above: Performed By: #### CBC ####[facility] Wfpvwyxbwr9813[address] [place], [place] [address]Dr.Elba ChangRBC3.44 106/ulCritically low4.70-6.10The [facility] HospitalComment on above:Performed By: #### CBC ####[facility] Mdmplzlnse4533[address] [place], [place] [address]Dr.Elba ChangWBC7.2 103/ul Normal4.0-11.0The [facility] HospitalComment on above:Performed By: #### CBC ####[facility] Engkchihjf4574[address] [place], [place] [address]Dr. Elba ChangPROF 14(COMP METB)on 89-23-2232Dqsiszo [Mass/Vol]2.3 g/dLCritically low3.4-5.0[facility] FoundationComment on above:Performed By: #### CMP ####[facility] Jhqzxhcaam9959[address] [place], [place] [address]Dr. Elba ChangAlbumin/Globulin [Mass ratio]0.6 {ratio}NormalCleveland Clinic Foundation Comment on above:Performed By: #### CMP ####[facility] Owqugktyps0788[address] [place], [place] [address]Dr.Nereydalan ChangALP [Catalytic activity/Vol]77 U/WJqwvmz61-093Azv [facility] HospitalComment on above:Performed By: #### CMP ####[facility] Silreemqzk9205[address] [place], [place] [address]Dr. Yilan ChangALT [Catalytic activity/Vol]26 U/SQedqlp65-24Euf [facility] Comment on above:Performed By: #### CMP ####[facility] Yhrrsjhquu2[address] [place] [address]Dr.Yilan ChangAnion gap [Moles/Vol]12.3 mmol/LNormalThe [facility] HospitalComment on above:Performed By: #### CMP ####[facility] Qgxpnxulpm316[address] [place], [place] [address]Dr. Yilan ChangAST [Catalytic activity/Vol]23 U/FZxlubq69-17Agv [facility] Comment on above:Performed By: #### CMP ####[facility] Yskrmfiwui6801[address] [place], [place] [address]Dr.Yilan ChangBilirubin [Mass/Vol]0.8 mg/dL Normal0.2-1.3The [facility] HospitalComment on above:Performed By: #### CMP ####[facility] Hhadfxytpg0937[address] [place], [place] [address]Dr. Yilan ChangCalcium [Mass/Vol]8.0 mg/dLCritically low8.5-10.1The [facility] HospitalComment on above:Performed By: #### CMP ####[facility] Dqjsaykqeh085[address] [place], [place] [address]Dr.Yilan ChangChloride [Moles/Vol]101 mmol/YOjhywn24-122Klv [facility] HospitalComment on above:Performed By: #### CMP ####[facility] Gunqcbgvzt834[address] [place], [place] [address]Dr.Yilan ChangCO2 [Moles/Vol]25.8 mmol/STasbke90.0-30.0The [facility] HospitalComment on above:Performed By: #### CMP ####[facility] Aggzfpbfmy428[address] [place], [place] [address]Dr.Yilan ChangCreatinine [Mass/Vol]2.72 mg/dLCritically high0.66-1.25The [facility] HospitalComment on above:Performed By: #### CMP ####[facility] Dtmdufeyss8269[address] [place], [place] [address]Dr.Yilan ChangEGFR-AF RFWEFGPP38 mL/min/1.73m2 Critically low>=60The [facility] HospitalComment on above:Performed By: #### CMP ####[facility] B[address]fqansqdj48[address] [place] [address]Dr. Yilan ChangEGFR-NON AF MBZYFGVD03 mL/min/1.23x3Ofoyuwpxaq low>=60The [facility] on above:Performed By: #### CMP ####[facility] Nrkxqocpdj923[address] [place], [place] [address]Dr.Yilan ChangGlobulin (S) [Mass/Vol]4.1 g/dLNormAshtabula County Medical CenterComment on above:Performed By: #### CMP ####[facility] Tjomizhkas3056[address] [place], [place] [address]Dr.Yilan ChangGlucose [Mass/Vol]130 mg/dLCritically dmxm78-838Zkw [facility] HospitalComveterans affairs medical center on above:Performed By: #### CMP ####[facility] Lfebnjruzs4824[address] [place], [place] [address]Dr.Yilan ChangPotassium [Moles/Vol]4.1 mmol/LNormal3.4-5.0The [facility] on above: Performed By: #### CMP ####[facility] Rsvhitxzla[address] [place], [place] [address]Dr.Yilan ChangProtein [Mass/Vol]6.4 g/dLNormal6.1-8.2 [facility] FoundationComveterans affairs medical center on above:Performed By: #### CMP ####[facility] Slcgzjlwzl304[address] [place], [place] [address]Dr.Yilan ChangSodium [Moles/Vol]135 mmol/LCritically enr878-574Qrj [facility] HospitalComveterans affairs medical center on above:Performed By: #### CMP ####[facility] Srjcorphoa500[address] [place], [place] [address]Dr.Yilan ChangUrea nitrogen [Mass/Vol]60.0 mg/dL Critically high7.0-18.0The [facility] on above:Performed By: #### CMP ####[facility] Vemdnfhfbe6426[address] [place], [place] [address]Dr. Yilan ChangUrea nitrogen/Creatinine [Mass ratio]22.1 mg/mgNormalThKettering Health DaytonComveterans affairs medical center on above:Performed By: #### CMP ####[facility] Dwhuzymtld[address] [place] [address]Dr.Elba ChangBNPon 53-27-6155Wryeybfayaq peptide B (Bld) [Mass/Vol]73265.0 pg/mLCritically high <=900.0The [facility] HospitalComment on above:Result Comment: Test Repeated. Critical Value VerifiedPerformed By: #### CMP, BNP, CRP ####[facility] Wqsobxcsqn9415[address] [place], [place] [address]Dr. Nereydalan ChangCBC AUTO DIFF on [id number] #0.0 103/ulNormal0.0-0.1The [facility] HospitalComment on above: Performed By: #### CBC ####[facility] Yaorirbcun1189[address] [place], [place] [address]Dr.Yilan ChangBasophils/100 WBC (Bld)0.2 %Normal 0.2-2.0The [facility] HospitalComment on above:Performed By: #### CBC ####[facility] Gvgilxrpvu25[address] [place], [place] [address]Dr.Yilan ChangEO # 0.1 103/ulNormal0.0-0.7The [facility] HospitalComment on above:Performed By: #### CBC ####[facility] Xxpzowlosu8523[address] [place], [place] [address]Dr. Yilan ChangEosinophils/100 WBC (Bld)1.3 %Normal0.9-7.0The [facility] Comment on above:Performed By: #### CBC ####[facility] Xbccmwtjjp9997[address] [place], [place] [address]Dr.Nereydalan ChangErythrocyte distribution width (RBC) [Ratio]19.0 %Critically high11.0-15.0The [facility] HospitalComment on above:Performed By: #### CBC ####[facility] Glezxaouwx2472[address] [place], [place] [address]Dr.Nereydalan ChangHematocrit (Bld) [Volume fraction]28.7 % Critically low42.0-54.0The [facility] HospitalComment on above:Performed By: #### CBC ####[facility] Wjlabovhcv39[address] [place] [address]Dr. Elba AnthonyHemoglobin (Bld) [Mass/Vol]8.7 g/dLCritically low14.0-18.0The [facility] HospitalComment on above:Performed By: #### CBC ####[facility] Lupqomgrhx192[address] [place], [place] [address]Dr.Elba AnthonyIG #0.04 10e3/ulCritically high0.00-0.03The [facility] HospitalComment on above:Performed By: #### CBC ####[facility] Zrwmxixjhv573[address] [place], [place] [address]Dr.Elba AnthonyIG %0.5 %Normal0.0-0.5The [facility] HospitalComment on above: Performed By: #### CBC ####[facility] Cbgeamwglv0539[address] [place], [place] [address]Dr.Elba AnthonyLYMPH #0.4 103/ulCritically low1.2-3.8 The [facility] HospitalComment on above:Performed By: #### CBC ####[facility] Yxvxaehmte0059[address] [place], [place] [address]Dr.Elba Anthony Lymphocytes/100 WBC (Bld)4.2 %Critically low20.5-60.0The [facility] Comment on above:Performed By: #### CBC ####[facility] Qfbuwervnd8805[address] [place], [place] [address]Dr.Elba AnthonyMANUAL DIFF REQNONormalThe [facility] HospitalComment on above:Performed By: #### CBC ####[facility] Gdaiuaosyx248[address] [place], [place] [address]Dr.Elba AnthonyMCH (RBC) [Entitic mass]25.5 pgCritically low25.9-34.0The [facility] HospitalComment on above:Performed By: #### CBC ####[facility] Wlvmrzotjn2588[address] [place], [place] [address]Dr.Elba AnthonyMCHC (RBC) [Mass/Vol]30.3 g/dLNormal 29.9-35.2The [facility] HospitalComment on above:Performed By: #### CBC ####[facility] Qxtxsbcfhu50[address] [place] [address]Dr. Elba RajMCV (RBC) [Entitic vol]84.2 jEQxqaef72.0-94.0[facility] Comment on above:Performed By: #### CBC ####[facility] Nqwrduibgc[address] [place], [place] [address]Dr.Elba RajMONO #0.6 103/ulNormal0.3-0.8 [facility] FoundationComment on above:Performed By: #### CBC ####[facility] Lshygjweun[address] [place], [place] [address]Dr.Nereydasiobhan Anthony Monocytes/100 WBC (Bld)7.5 %Normal1.7-12.0[facility] FoundationComment on above: Performed By: #### CBC ####[facility] Psllmbztxz209[address] [place], [place] [address]Dr.Elba AnthonyNEUT #7.2 103/ulCritically high1.4-6.5 [facility] FoundationComment on above:Performed By: #### CBC ####[facility] Odhmpitqcf2659[address] [place], [place] [address]Dr.Nereydasiobhan Anthony Neutrophils/100 WBC (Bld)86.3 %Critically high43.0-75.0The [facility] Comment on above:Performed By: #### CBC ####[facility] Udzgjjlkgr6417[address] [place], [place] [address]Dr.Elba AnthonyPlatelet mean volume (Bld) [Entitic vol]10.7 fLNormal9.5-13.5The [facility] HospitalComment on above: Performed By: #### CBC ####[facility] Azdtkmjctn726[address] [place], [place] [address]Dr.Elba AnthonyPLT132 103/ulCritically hun122-654Bwv [facility] HospitalComment on above:Performed By: #### CBC ####[facility] Nnawvhsvfr[address] [place], [place] [address]DrJessica AnthonyRBC3.41 106/ul Critically low4.70-6.10The [facility] HospitalComment on above:Performed By: #### CBC ####[facility] Gltiaumtgw5465[address] [place], [place] [address]Dr. Yilan ChangWBC8.4 103/ulNormal4.0-11.0The [facility] [facility] on above: Performed By: #### CBC ####[facility] Djqmuxadwx[address] [place], [place] [address]Dr.Yilan ChangCRPon [id number] [Mass/Vol]mg/L Critically high<=1.0The [facility] HospitalComment on above:Performed By: #### CMP, BNP, CRP ####[facility] Qwexbdrqhc7155[address] [place], [place] [address]Dr. Yilan ChangPROF 14(COMP METB)on [id number] [Mass/Vol]2.4 g/dLCritically low3.4-5.0The [facility] on above:Performed By: #### CMP, BNP, CRP ####[facility] Fbrseyczps4423[address] [place], [place] [address]Dr. Nereydalan ChangAlbumin/Globulin [Mass ratio]0.6 {ratio}NormalThe [facility] on above:Performed By: #### CMP, BNP, CRP ####[facility] Delhaooujx6[address] [place], [place] [address]Dr. Yilan ChangALP [Catalytic activity/Vol]75 U/CZwgjqr56-416Gjb [facility] Comment on above:Performed By: #### CMP, BNP, CRP ####[facility] Qvadpzpdid0[address] [place], [place] [address]Dr. Yilan ChangALT [Catalytic activity/Vol]22 U/JXupwbu40-67Nms [facility] Hospitalment on above:Performed By: #### CMP, BNP, CRP ####[facility] Osirdkaoek[address] [place], [place] [address]Dr. Nereydalan ChangAnion gap [Moles/Vol]13.8 mmol/LNormal The [facility] HospitalComment on above:Performed By: #### CMP, BNP, CRP ####[facility] [address]mrnxmqw[address] [place] [address]Dr. Yilan ChangAST [Catalytic activity/Vol]17 U/NEqfzzt16-29Frp [facility] Comment on above:Performed By: #### CMP, BNP, CRP ####[facility] Ihlmh[address]pwx[address] [place] [address]Dr. Yilan ChangBilirubin [Mass/Vol]0.8 mg/dLNormal0.2-1.3The [facility] HospitalComment on above:Performed By: #### CMP, BNP, CRP ####[facility] [address]xqaxm[address] [place] [address]Dr. Yilan ChangCalcium [Mass/Vol]7.7 mg/dLCritically low8.5-10.1The [facility] HospitalComment on above:Performed By: #### CMP, BNP, CRP ####[facility] Yzlngkwsie46[address] [place], [place] [address]Dr. Yilan ChangChloride [Moles/Vol]98 mmol/XHbdygk83-902Kto [facility] Comment on above:Performed By: #### CMP, BNP, CRP ####[facility] Uxgncfgqmd[address] [place], [place] [address]Dr. Yilan ChangCO2 [Moles/Vol]24.5 mmol/QQlrlic95.0-30.0The [facility] HospitalComment on above: Performed By: #### CMP, BNP, CRP ####[facility] Lrnuzgybsr[address] [place], [place] [address]Dr. Yilan ChangCreatinine [Mass/Vol]3.10 mg/dL Critically high0.66-1.25The [facility] HospitalComment on above:Performed By: #### CMP, BNP, CRP ####[facility] Ryobeihyaa[address] [place] [address]Dr. Yilan ChangEGFR-AF CKNZUSDF94 mL/min/1.26n6Abvuzwhpfx low>=60The [facility] HospitalComment on above:Performed By: #### CMP, BNP, CRP ####[facility] Czzqjvluve8[address] [place], [place] [address]Dr. Yilan ChangEGFR- NON AF XUVPJIVM39 mL/min/1.83d7Mdbfzvitek low>=60The [facility] HospitalComment on above:Performed By: #### CMP, BNP, CRP ####[facility] Zvmpgorxtq42[address] [place] [address]Dr. Yilan ChangGlobulin (S) [Mass/Vol]4.1 g/dLNormAshtabula County Medical CenterComment on above:Performed By: #### CMP, BNP, CRP ####[facility] Ehoblwjodk2466[address] [place], [place] [address]Dr. Yilan ChangGlucose [Mass/Vol]141 mg/dLCritically muyh56-440Wke [facility] Comment on above:Performed By: #### CMP, BNP, CRP ####[facility] Duatfqwgxq5311[address] [place], [place] [address]Dr. Yilan ChangPotassium [Moles/Vol]4.3 mmol/LNormal3.4-5.0The [facility] HospitalComment on above: Performed By: #### CMP, BNP, CRP ####[facility] Wpxtomqxzj1725[address] [place], [place] [address]Dr. Yilan ChangProtein [Mass/Vol]6.5 g/dLNormal6.1-8.2 The [facility] HospitalComment on above:Performed By: #### CMP, BNP, CRP ####[facility] Zfivuncsaa1535[address] [place], [place] [address]Dr. Yilan ChangSodium [Moles/Vol]132 mmol/LCritically wsb065-803Dve [facility] HospitalComment on above:Performed By: #### CMP, BNP, CRP ####[facility] Djckvvsesf538[address] [place], [place] [address]Dr. Yilan ChangUrea nitrogen [Mass/Vol]62.0 mg/dLCritically high7.0-18.0The [facility] HospitalComment on above:Performed By: #### CMP, BNP, CRP ####[facility] Yvlayiztos3726[address] [place], [place] [address]Dr. Yilan ChangUrea nitrogen/Creatinine [Mass ratio]20.0 mg/mgNoLima City HospitalComment on above:Performed By: #### CMP, BNP, CRP ####[facility] Ofggxtmgbl300[address] [place] [address]Dr. Yilan ChangUA RANDOM W/MICROSCOPICon 63-29-5696HUBVOOGVAFICU AbnormalNONE SEENCleveland Clinic FoundationComment on above:Performed By: #### UAMIC ####[facility] Zkkkhtdrej5745[address] [place], [place] [address]Dr. Yilan ChangBilirubin Ql (U)NegativeNormalNEGATIVECleveland Clinic FoundationComment on above:Performed By: #### UAMIC ####[facility] Bwlzeoxzqc7746[address] [place], [place] [address]Dr. Yilan ChangCASTNONE SEENNormalNONE SEENCleveland Clinic FoundationComment on above:Performed By: #### UAMIC ####[facility] Dzmelhuurt7416[address] [place], [place] [address]Dr. Yilan ChangClarity (U) CLEARNormalCLEARCleveland Clinic FoundationComment on above:Performed By: #### UAMIC ####[facility] Ipuypgeiva1887[address] [place], [place] [address]Dr. Yilan ChangColor (U)LT. YELLOWNormalYBluffton HospitalComment on above: Performed By: #### UAMIC ####[facility] Qeknfghdee1764[address] [place], [place] [address]Dr. Yilan ChangCrystals LM Nom (Urine sed)SEENAbnormal NONE SEENCleveland Clinic FoundationComveterans affairs medical center on above:Performed By: #### UAMIC ####[facility] Rtsnfofbpt[address] [place], [place] [address]Dr. Yilan ChangEpithelial cells LM Ql (Urine sed)RARENormalNONE SEEN /RAREThe [facility] HospitalComment on above:Performed By: #### UAMIC ####[facility] Cqjutwbdxq5125[address] [place], [place] [address]Dr. Yilan ChangGlucose Ql (U) NegativeNormalNEGATIVECleveland Clinic FoundationComment on above:Performed By: #### UAMIC ####[facility] Lkxdswzeht6[address] Main StreetBellevue, [place] [address]Ss. Yilan ChangHemoglobin Ql (U)MODERATEAbnormalNEGATIVEKindred Healthcare HospitalComment on above:Performed By: #### UAMIC ####[facility] Gbxtlvnbuq8857[address] [place], [place] [address]Dr. Yilan ChangKetones Ql (U) NegativeNormalNEGATIVEKindred Healthcare HospitalComment on above:Performed By: #### UAMIC ####[facility] Jevjwnxlha5565[address] [place], [place] [address]Dr. Yilan ChangLEUKOCYTESNegativeNormalNEGATIVEKindred Healthcare HospitalComment on above:Performed By: #### UAMIC ####[facility] Dcaorsturo9109[address] [place], [place] [address]Dr. Yilan ChangMUCOUSNONE SEENNormalNONE SEENKindred Healthcare HospitalComment on above:Performed By: #### UAMIC ####[facility] Jajjgsgplb[address] [place], [place] [address]Dr. Yilan ChangNitrite Ql (U) NegativeNormalNEGATIVECleveland Clinic FoundationComment on above:Performed By: #### UAMIC ####[facility] Gxcxaugriw1559[address] [place], [place] [address]Dr. Yilan ChangpH (U)5.5 [pH]Normal5-9The [facility] HospitalComment on above:Performed By: #### UAMIC ####[facility] Xjkhrdgaha3954[address] [place], [place] [address]Dr. Yilan JfqxxLQM38-16Bdwoyjiu6-9Oat [facility] HospitalComment on above:Performed By: #### UAMIC ####[facility] Yzrggxcgqg6678[address] [place], [place] [address]Dr. Yilan ChangSPEC GRAVITY 1.488Qlmprb0.005-<=1.025The [facility] HospitalComment on above:Performed By: #### UAMIC ####[facility] Rdnkrhgspp3768[address] [place], [place] [address]Dr. Yilan ChangUA PROTEINNegativeNormalNEGATIVE/ TRACEThe [facility] Comment on above:Performed By: #### UAMIC ####[facility] Wovgwsgnlc4686[address] [place], [place] [address]Dr. Elba AnthonyURIC ACID CRYSTALSFEWNormal The [facility] HospitalComment on above:Performed By: #### UAMIC ####[facility] Btbaysonqy1165[address] [place], [place] [address]Dr. Elba Anthony Urobilinogen Qn (U)0.2 {Caden'U}/dLNormal0.2 - 1.0The [facility] HospitalComment on above:Performed By: #### UAMIC ####[facility] Hpvihkilkb3296[address] [place], [place] [address]Dr. Elba AnthonyWBC0-2AbnormalNONE SEENThe [facility] HospitalComment on above:Performed By: #### UAMIC ####[facility] Dvdhjtiizm9335[address] [place], [place] [address]Dr. Elba AnthonyBNPon 74-78-9428Dqffacyyjas peptide B (Bld) [Mass/Vol]38668.0 pg/mLCritically high <=900.0The [facility] HospitalComment on above:Result Comment: test repeated Performed By: #### CRP, CMP, BNP ####[facility] Uurfazbuce8909[address] [place], [place] [address]Dr. Elba AnthonyCBC AUTO DIFFon 87-99-7125EHUS #0.0 103/ulNormal0.0-0.1The [facility] HospitalComment on above:Performed By: #### CBC ####[facility] Otzwogushm7062[address] [place], [place] [address]Dr. Elba AnthonyBasophils/100 WBC (Bld)0.1 %Critically low0.2-2.0The [facility] HospitalComment on above:Performed By: #### CBC ####[facility] Gakcwpfsuc2735[address] [place], [place] [address]Dr.Elba ChangEO #0.1 103/ul Normal0.0-0.7The [facility] HospitalComment on above:Performed By: #### CBC ####[facility] Jluovbhobk0052[address] [place], [place] [address]Dr. Elba ChangEosinophils/100 WBC (Bld)1.1 %Normal0.9-7.0The [facility] Comment on above:Performed By: #### CBC ####[facility] Rfvyobyhzz[address] [place], [place] [address]Dr.Nereydasiobhan ChangErythrocyte distribution width (RBC) [Ratio]18.7 %Critically high11.0-15.0The [facility] HospitalComment on above:Performed By: #### CBC ####[facility] Jykvohcrkl7188[address] [place], [place] [address]Dr.Nereydasiobhan ChangHematocrit (Bld) [Volume fraction]28.9 % Critically low42.0-54.0The [facility] HospitalComment on above:Performed By: #### CBC ####[facility] Kcsjrncuid[address] [place], [place] [address]Dr. Elba ChangHemoglobin (Bld) [Mass/Vol]8.7 g/dLCritically low14.0-18.0The [facility] HospitalComment on above:Performed By: #### CBC ####[facility] Homisngpnt3745[address] [place], [place] [address]Dr.Elba ChangIG #0.04 10e3/ulCritically high0.00-0.03The [facility] HospitalComment on above:Performed By: #### CBC ####[facility] Clxnsuwnvo4867[address] [place], [place] [address]Dr.Elba ChangIG %0.4 %Normal0.0-0.5The [facility] HospitalComment on above: Performed By: #### CBC ####[facility] Pqmblwcosa8176[address] [place], [place] [address]Dr.Elba ChangLYMPH #0.4 103/ulCritically low1.2-3.8 The [facility] HospitalComment on above:Performed By: #### CBC ####[facility] Gzmnqrwjxs355[address] [place], [place] [address]Dr.Elba Anthony Lymphocytes/100 WBC (Bld)4.1 %Critically low20.5-60.0The [facility] Comment on above:Result Comment: dif. not rqd. same as 4/6/22Performed By: #### CBC ####[facility] Jhpwmhocho[address] [place] [address]Dr. Elba AnthonyMANUAL DIFF REQNONormalThe [facility] HospitalComment on above: Performed By: #### CBC ####[facility] Frkjvizszd187[address] [place], [place] [address]Dr.Elba RajH (RBC) [Entitic mass]25.3 pg Critically low25.9-34.0The [facility] HospitalComment on above:Performed By: #### CBC ####[facility] Nijarczxbu4512[address] [place], [place] [address]Dr. lEba AnthonyHC (RBC) [Mass/Vol]30.1 g/dJJfzdgl59.9-35.2The [facility] Comment on above:Performed By: #### CBC ####[facility] Zimpdkwrol1025[address] [place], [place] [address]Dr.Elba AnthonyV (RBC) [Entitic vol]84.0 fL Alerza03.0-94.0The [facility] HospitalComment on above:Performed By: #### CBC ####[facility] Iuhlnmqzdw5514[address] [place], [place] [address]Dr. Elba AnthonyMONO #0.9 103/ulCritically high0.3-0.8The [facility] HospitalComment on above:Performed By: #### CBC ####[facility] Pdfrcsomaf2073[address] [place], [place] [address]Dr.Elba AnthonyMonocytes/100 WBC (Bld)9.3 %Normal 1.7-12.0The [facility] HospitalComment on above:Performed By: #### CBC ####[facility] Zlckznqprk6176[address] [place], [place] [address]Dr. Elba AnthonyNEUT #7.8 103/ulCritically high1.4-6.5The [facility] HospitalComment on above:Performed By: #### CBC ####[facility] Alqozgfafw5855[address] [place], [place] [address]Dr.Elba AnthonyNeutrophils/100 WBC (Bld)85.0 % Critically high43.0-75.0The [facility] HospitalComment on above:Performed By: #### CBC ####[facility] Ihxzgsgvtz6084[address] [place], [place] [address]Dr. Elba AnthonyPlatelet mean volume (Bld) [Entitic vol]11.0 fLNormal9.5-13.5The [facility] HospitalComment on above:Performed By: #### CBC ####[facility] Smvutlqkgl0779[address] [place], [place] [address]Dr.Elba AnthonyPLT117 103/ul Critically yzg411-584Mbk [facility] HospitalComment on above:Performed By: #### CBC ####[facility] Bqlnqonoxx113[address] [place], [place] [address]Dr. Elba AnthonyRBC3.44 106/ulCritically low4.70-6.10The [facility] HospitalComment on above:Performed By: #### CBC ####[facility] Ebmuojgvgy8829[address] [place], [place] [address]Dr.Elba AnthonyWBC9.2 103/ulNormal4.0-11.0The [facility] HospitalComment on above:Performed By: #### CBC ####[facility] Wjwphwhpbd7825[address] [place], [place] [address]Dr.Elba RajCRPon 65-42-5705CMA [Mass/Vol]mg/LCritically high<=1.0The [facility] HospitalComveterans affairs medical center on above:Performed By: #### CRP, CMP, BNP ####[facility] Tjbfrqnmze6613[address] [place], [place] [address]Dr. Nereydasiobhan AnthonyPROF 14(COMP METB)on 12-14-2021 Albumin [Mass/Vol]2.5 g/dLCritically low3.4-5.0The [facility] HospitalComment on above:Performed By: #### CRP, CMP, BNP ####[facility] Yafvtcboql5432[address] [place], [place] [address]Dr. Nereydasiobhan AnthonyAlbumin/Globulin [Mass ratio]0.6 {ratio}NormalThe [facility] HospitalComment on above:Performed By: #### CRP, CMP, BNP ####[facility] Xameqfauow[address] [place] [address]Dr. Yilan ChangALP [Catalytic activity/Vol]76 U/OFsixxs02-456Rng [facility] Comment on above:Performed By: #### CRP, CMP, BNP ####[facility] Zevdzryuep[address] [place] [address]Dr. Yilan ChangALT [Catalytic activity/Vol]17 U/MMnpmld56-32Ffp [facility] HospitalComment on above:Performed By: #### CRP, CMP, BNP ####[facility] Dsbhbhwkcn[address] [place], [place] [address]Dr. Yilan ChangAnion gap [Moles/Vol]13.3 mmol/LNormal The [facility] HospitalComment on above:Performed By: #### CRP, CMP, BNP ####[facility] Iyuypgyogw3527[address] [place], [place] [address]Dr. Yilan ChangAST [Catalytic activity/Vol]22 U/VKggfgj63-55Jbu [facility] Comment on above:Performed By: #### CRP, CMP, BNP ####[facility] Zgfwpuqjit3522[address] [place], [place] [address]Dr. Yilan ChangBilirubin [Mass/Vol]1.0 mg/dLNormal0.2-1.3The [facility] HospitalComment on above:Performed By: #### CRP, CMP, BNP ####[facility] Aznysvwucr4708[address] [place], [place] [address]Dr. Yilan ChangCalcium [Mass/Vol]8.1 mg/dLCritically low8.5-10.1The [facility] HospitalComment on above:Performed By: #### CRP, CMP, BNP ####[facility] Zhtdvdgzjl539[address] [place], [place] [address]Dr. Yilan ChangChloride [Moles/Vol]97 mmol/LCritically ymb97-315Mox [facility] HospitalComment on above:Performed By: #### CRP, CMP, BNP ####[facility] Pormoaqpsn9[address] [place], [place] [address]Dr. Yilan ChangCO2 [Moles/Vol]25.0 mmol/VAbzyia58.0-30.0The [facility] HospitalComment on above: Performed By: #### CRP, CMP, BNP ####[facility] Ajjmpprbwy[address] [place] [address]Dr. Yilan ChangCreatinine [Mass/Vol]2.85 mg/dL Critically high0.66-1.25The [facility] HospitalComment on above:Performed By: #### CRP, CMP, BNP ####[facility] Duxlxplhww0417[address] [place], [place] [address]Dr. Yilan ChangEGFR-AF SCPTXBVS17 mL/min/1.18k2Asmwzdoddz low>=60The [facility] HospitalComment on above:Performed By: #### CRP, CMP, BNP ####[facility] Wiayxnjauy339[address] [place], [place] [address]Dr. Yilan ChangEGFR- NON AF TOEDZVBU33 mL/min/1.79x7Eyzumweohf low>=60The [facility] HospitalComment on above:Performed By: #### CRP, CMP, BNP ####[facility] Nnwvnirtke2346[address] [place], [place] [address]Dr. Yilan ChangGlobulin (S) [Mass/Vol]3.9 g/dLNormalThe [facility] HospitalComment on above:Performed By: #### CRP, CMP, BNP ####[facility] Qwrjeruirc1956[address] [place], [place] [address]Dr. Yilan ChangGlucose [Mass/Vol]123 mg/dLCritically qnxt69-791Lov [facility] Comment on above:Performed By: #### CRP, CMP, BNP ####[facility] Wyifmjqsar[address] [place], [place] [address]Dr. Yilan ChangPotassium [Moles/Vol]4.3 mmol/LNormal3.4-5.0The [facility] HospitalComment on above: Performed By: #### CRP, CMP, BNP ####[facility] Fuovvuoorr5245[address] [place], [place] [address]Dr. Yilan ChangProtein [Mass/Vol]6.4 g/dLNormal6.1-8.2 The [facility] HospitalComment on above:Performed By: #### CRP, CMP, BNP ####[facility] Qwhetvtdzy[address] [place] [address]Dr. Nereydalan ChangSodium [Moles/Vol]131 mmol/LCritically box756-105Yfy [facility] HospitalComment on above:Performed By: #### CRP, CMP, BNP ####[facility] Gwsjnyyvuh[address] [place] [address]Dr. Nereydalan ChangUrea nitrogen [Mass/Vol]57.0 mg/dLCritically high7.0-18.0The [facility] HospitalComment on above:Performed By: #### CRP, CMP, BNP ####[facility] Xbejxsilzd63[address] [place] [address]Dr. Nereydalan ChangUrea nitrogen/Creatinine [Mass ratio]20.0 mg/mgNormalThe [facility] HospitalComment on above:Performed By: #### CRP, CMP, BNP ####[facility] Rtxlbjogpv076[address] [place], [place] [address]Dr. Nereydalan ChangXR CHEST 1 Von [id number] CHEST 1 VNormalCleveland Clinic FoundationXR CHEST 1 VNormalCleveland Clinic FoundationBNAurora Medical Center Osh[facility] 14-47-4753Lfoxfrzamae peptide B (Bld) [Mass/Vol]30403.0 pg/mLCritically high<=900.0The [facility] HospitalComment on above:Performed By: #### BNP ####[facility] Eqjgntgpzl027[address] [place], [place] [address]Dr.Nereydasiobhan RajCBC AUTO DIFFon 58-11-1428KGAR #0.0 103/ulNormal0.0-0.1The [facility] HospitalComment on above: Performed By: #### CBC ####[facility] Lbxaljheew7608[address] [place], [place] [address]Dr.Nereydalan ChangBasophils/100 WBC (Bld)0.1 %Critically low0.2-2.0The [facility] HospitalComment on above:Performed By: #### CBC ####[facility] Xiaiddlohw8856[address] [place], [place] [address]Dr. Yilan ChangEO #0.0 103/ulNormal0.0-0.7The [facility] HospitalComment on above: Performed By: #### CBC ####[facility] Iuyxjrvdjf0495[address] [place], [place] [address]Dr.Elba ChangEosinophils/100 WBC (Bld)0.2 %Critically low0.9-7.0The [facility] HospitalComment on above:Performed By: #### CBC ####[facility] Oxqfmdphhj9019[address] [place], [place] [address]Dr. Nereydalan ChangErythrocyte distribution width (RBC) [Ratio]19.0 %Critically high 11.0-15.0The [facility] HospitalComment on above:Performed By: #### CBC ####[facility] Uhqjvtxdog7984[address] [place], [place] [address]Dr. Elba ChangHematocrit (Bld) [Volume fraction]31.8 %Critically low42.0-54.0The [facility] HospitalComment on above:Performed By: #### CBC ####[facility] Lfiqskyvrw[address] [place], [place] [address]Dr.Elba ChangHemoglobin (Bld) [Mass/Vol]9.5 g/dLCritically low14.0-18.0The [facility] HospitalComment on above:Performed By: #### CBC ####[facility] Uzkvvqjtuz7775[address] [place], [place] [address]Dr.Elba ChangIG #0.05 10e3/ulCritically high0.00-0.03 The [facility] HospitalComment on above:Performed By: #### CBC ####[facility] Vxytihdbns76[address] [place], [place] [address]Dr.Elba ChangIG % 0.4 %Normal0.0-0.5The [facility] HospitalComment on above:Performed By: #### CBC ####[facility] Tjalnmsxqd7334[address] [place], [place] [address]Dr. Yilan ChangLYMPH #0.3 103/ulCritically low1.2-3.8The [facility] HospitalComment on above:Performed By: #### CBC ####[facility] Xoaeokhwcd139[address] [place], [place] [address]Dr.Yilan ChangLymphocytes/100 WBC (Bld)2.3 %Critically low20.5-60.0The [facility] HospitalComment on above:Result Comment: dif. not rqd. same as 12/12/21Performed By: #### CBC ####[facility] Wyqfsrkdjm[address] [place] [address]Dr.Elba AnthonyMANUAL DIFF REQNONormalThe [facility] HospitalComment on above:Performed By: #### CBC ####[facility] Lrcnbqauzw1504[address] [place], [place] [address]Dr.Elba AnthonyH (RBC) [Entitic mass]25.3 pgCritically low25.9-34.0The [facility] HospitalComment on above:Performed By: #### CBC ####[facility] Myluizpczx4132[address] [place], [place] [address]Dr.Elba AnthonyMCHC (RBC) [Mass/Vol]29.9 g/dLNormal 29.9-35.2The [facility] HospitalComment on above:Performed By: #### CBC ####[facility] Culiimrxaz628[address] [place], [place] [address]Dr. Elba AnthonyMCV (RBC) [Entitic vol]84.8 oZJruqlu94.0-94.0The [facility] Comment on above:Performed By: #### CBC ####[facility] Ckcjtkcqax750[address] [place], [place] [address]Dr.Elba AnthonyMONO #0.8 103/ulNormal0.3-0.8 The [facility] HospitalComment on above:Performed By: #### CBC ####[facility] Cydbhlwllb4824[address] [place], [place] [address]Dr.Elba Anthony Monocytes/100 WBC (Bld)6.7 %Normal1.7-12.0The [facility] HospitalComment on above: Performed By: #### CBC ####[facility] Uumucbmfxg2007[address] [place], [place] [address]Dr.Elba AnthonyNEUT #11.0 103/ulCritically high1.4-6.5 The [facility] HospitalComment on above:Performed By: #### CBC ####[facility] Xikqvijhcc08[address] [place], [place] [address]Dr.Elba Anthony Neutrophils/100 WBC (Bld)90.3 %Critically high43.0-75.0The [facility] Comment on above:Performed By: #### CBC ####[facility] Eudtjalbwe99[address] [place], [place] [address]Dr.Elba AnthonyPlatelet mean volume (Bld) [Entitic vol]10.8 fLNormal9.5-13.5The [facility] HospitalComment on above: Performed By: #### CBC ####[facility] Rywevbdeht[address] [place], [place] [address]Dr.Elba AnthonyPLT130 103/ulCritically lru340-044Ams [facility] HospitalComment on above:Performed By: #### CBC ####[facility] Jusbqatrkt39[address] [place], [place] [address]Dr.Elba AnthonyRBC3.75 106/ul Critically low4.70-6.10The [facility] HospitalComment on above:Performed By: #### CBC ####[facility] Kbtqteztda5688[address] [place], [place] [address]Dr. Elba AnthonyWBC12.2 103/ulCritically high4.0-11.0The [facility] HospitalComment on above:Performed By: #### CBC ####[facility] Jicccxostm450[address] [place], [place] [address]Dr.Nereydasiobhan ChangCRPon 11-15-0875JDF [Mass/Vol]mg/L Critically high<=1.0The [facility] HospitalComment on above:Performed By: #### CMP, CRP ####[facility] Sbrtrydgkn8077[address] [place], [place] [address]Dr. Nereydalan ChangECHO LIMITED STUDYon 53-78-3371KOAM LIMITED STUDYNormAshtabula County Medical CenterPROF 14(COMP METB)on 62-40-8316Twdxbts [Mass/Vol]2.9 g/dL Critically low3.4-5.0The [facility] HospitalComment on above:Performed By: #### CMP, CRP ####[facility] Cnkbhjtlic47[address] [place] [address]Dr. Yilan ChangAlbumin/Globulin [Mass ratio]0.7 {ratio}NormalThe [facility] HospitalComveterans affairs medical center on above:Performed By: #### CMP, CRP ####[facility] Btbzrdtvpp9758[address] [place], [place] [address]Dr. Yilan ChangALP [Catalytic activity/Vol]88 U/CLhczzs59-515Hxw [facility] HospitalComment on above:Performed By: #### CMP, CRP ####[facility] Gxgfpllpui8083[address] [place], [place] [address]Dr. Yilan ChangALT [Catalytic activity/Vol]15 U/LCritically fce63-15 The [facility] HospitalComment on above:Performed By: #### CMP, CRP ####[facility] Abozdnvohe336[address] [place], [place] [address]Dr. Yilan ChangAnion gap [Moles/Vol]15.1 mmol/LNormalThe [facility] HospitalComment on above:Performed By: #### CMP, CRP ####[facility] Xcuniingbs749[address] [place], [place] [address]Dr. Yilan ChangAST [Catalytic activity/Vol]14 U/LCritically pon51-91 The [facility] HospitalComveterans affairs medical center on above:Performed By: #### CMP, CRP ####[facility] Fbkwdaftzi1623[address] [place], [place] [address]Dr. Yilan Anthony Bilirubin [Mass/Vol]1.5 mg/dLCritically high0.2-1.3The [facility] HospitalComment on above:Performed By: #### CMP, CRP ####[facility] Gyqqfubtst159[address] [place], [place] [address]Dr. Yilan ChangCalcium [Mass/Vol]8.6 mg/dLNormal 8.5-10.1The [facility] HospitalComment on above:Performed By: #### CMP, CRP ####[facility] Ygqfuhhvqx2237[address] [place], [place] [address]Dr. Yilan ChangChloride [Moles/Vol]99 mmol/XIwshng91-912Mpx [facility] HospitalComment on above:Performed By: #### CMP, CRP ####[facility] Rmhrqgcvei47[address] [place] [id number]. Yilan ChangCO2 [Moles/Vol]24.3 mmol/LNormal 22.0-30.0The [facility] HospitalComment on above:Performed By: #### CMP, CRP ####[facility] Dmggmstbro26[address] [place] [address]Dr. Yilan ChangCreatinine [Mass/Vol]2.52 mg/dLCritically high0.66-1.25The [facility] HospitalComment on above:Performed By: #### CMP, CRP ####[facility] Yqywuxfdrx68[address] [place] [address]Dr. Yilan ChangEGFR-AF NQQVTCXC05 mL/min/1.73s4Oyyaqhksrq low>=60The [facility] HospitalComment on above: Performed By: #### CMP, CRP ####[facility] Mdmtrvopjv317[address] [place], [place] [address]Dr. Yilan ChangEGFR-NON AF NJUHMLFB45 mL/min/1.73m2 Critically low>=60The [facility] HospitalComment on above:Performed By: #### CMP, CRP ####[facility] Mducrkmhqj9864[address] [place], [place] [address]Dr. Yilan ChangGlobulin (S) [Mass/Vol]3.9 g/dLNormalThe [facility] HospitalComment on above:Performed By: #### CMP, CRP ####[facility] Vhdytgtmrl6271 [place] [address]Dr. Yilan ChangGlucose [Mass/Vol]133 mg/dL Critically ptat87-807Lmk [facility] HospitalComment on above:Performed By: #### CMP, CRP ####[facility] Airlryhvsg788[address] [place], [place] [address]Dr. Yilan ChangPotassium [Moles/Vol]4.4 mmol/LNormal3.4-5.0The [facility] HospitalComment on above:Performed By: #### CMP, CRP ####[facility] Fikhebvnpj8039[address] [place], [place] [address]Dr. Yilan ChangProtein [Mass/Vol]6.8 g/dLNormal6.1-8.2The [facility] HospitalComment on above:Performed By: #### CMP, CRP ####[facility] Prbnewztsu9[address] [place] [address]Dr. Yilan ChangSodium [Moles/Vol]134 mmol/LCritically iar660-547Ubv [facility] HospitalComment on above:Performed By: #### CMP, CRP ####[facility] Tlwchhgcjo6701[address] [place], [place] [address]Dr. Yilan ChangUrea nitrogen [Mass/Vol]47.0 mg/dLCritically high7.0-18.0The [facility] HospitalComment on above:Performed By: #### CMP, CRP ####[facility] Spgxnmzyod17101[address] [place], [place] [address]Dr. Yilan ChangUrea nitrogen/Creatinine [Mass ratio]18.7 mg/mgNoLima City HospitalComment on above:Performed By: #### CMP, CRP ####[facility] Gsisrxkbis4166[address] [place], [place] [address]Dr. Yilan ChangT3, TOTAL (TRIIODOTHYRONINE)on 51-62-9923N5, TOTAL66 ng/dL Critically xvk01-242Jkv [facility] HospitalComment on above:Performed By: #### E9BXOMN ####[facility] Qelkvqxczc6637[address] [place], [place] [address]Dr. Yilan ChangUS KIDNEYS BLADDERon 72-14-0378TL KIDNEYS BLADDERProMedica Memorial HospitalBLOOD CULTURE ID PANELon 2A. baumanniiNot detected NormalThe [facility] HospitalComveterans affairs medical center on above:Performed By: #### BCID ####[facility] Pxfrmgyxjy8146[address] [place], [place] [address]Dr. Yilan ChangBCID CONTROLSPASSEDProMedica Memorial HospitalComment on above:Performed By: #### BCID ####[facility] Aaolxvhyli3043[address] [place], [place] [address]Dr. Yilan ChangBCIDBTHDBLOOD CULTURE BOTTLE INFORMATIONProMedica Memorial HospitalComment on above:Performed By: #### BCID ####[facility] Yflpjodlmg[address] [place] [id number]. Yisiobhan ChangBCIDHD1 ANTIMICROBIAL RESISTANCE GENESProMedica Memorial HospitalComment on above: Performed By: #### BCID ####[facility] Jkyleljvuo2962[address] [place], [place] [address]Dr. Yisiobhan QnjhpTOVNQX2PKU The Metro[facility] SystemComment on above:Result Comment: KPC- carbapenem resistance gene, mecA- methecillin resistance gene, van A/B- vancomycin resistance gene Note: Antimicrobial resitance can occur via multiple mechanisms. A Not Detectedresult for the FilmArray antomicrobial resistance gene assays does not indicate antimicrobial susceptibility. Subculturing is required for specis identificationand susceptibility testing of isolates.Performed By: #### BCID ####[facility] Buxeqjqcwi3522[address] [place], [place] [address]Dr. Yisiobhan MoinqEATTAB5IkmipxebRctuegUbp [facility]vue HospitalComment on above:Performed By: #### BCID ####[facility] Uvajxllepp480[address] [place], [place] [address]Dr. Elba BigtdWICUSX3MtsloiqtYmrtbxEys [facility] HospitalComment on above:Performed By: #### BCID ####[facility] Aaobasrncf1138[address] [place], [place] [address]Dr. Elba HitrdYHLKSH0WVSUSPjoudsQibProMedica Memorial Hospital Comment on above:Performed By: #### BCID ####[facility] Tdoubwhhch[address] [place], [place] [address]Dr. Elba MzmmzVRTRAG6LEQ The [facility] SystemComment on above:Result Comment: Note: All genus and species BCID FilmArray results will be verified post subculturing via Maldi-Tof MS testing methodology.Performed By: #### BCID ####[facility] Iuolikpwxg4463[address] [place], [place] [address]Dr. Elba AnthonyBottle Set:Set 1NormalCleveland Clinic FoundationComveterans affairs medical center on above:Performed By: #### BCID ####[facility] Psxywimbik1928[address] [place], [place] [address]Dr. Yilan RajBottle:Aerobic NormalKindred Healthcare HospitalComment on above:Performed By: #### BCID ####[facility] Rujofcqwlz7[address] [place] [address]Dr. Yilan Anthony Lorelei albicansNot detectedNoWilson Health HospitalComment on above: Performed By: #### BCID ####[facility] Nxzulvxjyr9[address] [place], [place] [address]Dr. Yilan ChangCandida glabrataNot detectedNoWilson Health HospitalComment on above:Performed By: #### BCID ####[facility] Gqqhtxdbuk57[address] [place] [address]Dr. Yilan ChangCandida Krusei Not detectedNoLima City HospitalComment on above:Performed By: #### BCID ####[facility] Umsleqhlyi3513[address] [place], [place] [address]Dr. Elba AnthonyCandida ParapsilosisNot detectedProMedica Memorial HospitalComment on above:Performed By: #### BCID ####[facility] Hyufdwlxfs408[address] [place], [place] [address]Dr. Yilan RajCandida TropicalisNot detectedProMedica Memorial HospitalComment on above:Performed By: #### BCID ####[facility] Akblwkqgmz4667[address] [place], [place] [address]Dr. Yilan ChangE. Cloacae complexNot detectedProMedica Memorial HospitalComment on above:Performed By: #### BCID ####[facility] Qsyihfqkfc517[address] [place], [place] [address]Dr. Yilan ChangEnterobacteriaceaeNot detectedPeoples Hospital Hospital [facility] on above:Performed By: #### BCID ####[facility] Wdhqslaeof88[address] [place], [place] [address]Dr. Yilan ChangEnterococcusNot detected [facility] Memorial HospitalComment on above:Performed By: #### BCID ####[facility] Gsqcvlvjmy5729[address] [place], [place] [address]Dr. Yilan Anthony Escheria coliNot detectedNormalThe Jasper HospitalComment on above:Performed By: #### BCID ####[facility] Egsukruzkh8485 [place] [address]Dr. Yilan RajK. oxytocaNot detectedSuburban Community Hospital & [facility] on above:Performed By: #### BCID ####[facility] Dzicbmwokh4815 [place] [address]Dr. Yilan ChangK. pneumoniaeNot detected NormalKindred Healthcare HospitalComment on above:Performed By: #### BCID ####[facility] Wletcevyzr4857 [place] [address]Dr. Yilan ChangKPC Resistant GeneNot detectedPeoples Hospital HospitalComment on above:Performed By: #### BCID ####[facility] Mrimxfgxiq4445 [place] [address]Dr. Yilan ChangList. monocytogenesNot detectedPeoples Hospital HospitalComment on above:Performed By: #### BCID ####[facility] Fypjuwspxa[address] [place], [place] [address]Dr. Yilan ChangmecA Resistant GeneNot ApplicableProMedica Memorial HospitalComment on above:Performed By: #### BCID ####[facility] Pjrnolazia[address] [place], [place] [address]Dr. Yilan ChangProteusNot detectedProMedica Memorial HospitalComment on above:Performed By: #### BCID ####[facility] Dhmvkmwxxc6711 [place] [address]Dr. Yilan ChangPseud. aeruginosaDetectedCritically abnormalKindred Healthcare HospitalComment on above:Performed By: #### BCID ####[facility] Mdalmehtov[address] [place], [place] [address]Dr. Yilan ChangSeratia marcescensNot detectedProMedica Memorial HospitalComment on above:Performed By: #### BCID ####[facility] Xrgxwtohaj337[address] [place], [place] [address]Dr. Yilan ChangSite:Left handPeoples Hospital HospitalComment on above:Performed By: #### BCID ####[facility] Yzwzfmcztd5794 [place] [address]Dr. Elba AnthonyStaph. aureus Not detectedNoWilson Health HospitalComment on above:Performed By: #### BCID ####[facility] Vhyqeknokp275[address] [place], [place] [address]Dr. Elba ChangStaphylococcusNot detectedNoWilson Health HospitalComment on above:Performed By: #### BCID ####[facility] Asqpuyzprv867[address] [place], [place] [address]Dr. Elba ChangStrep. agalactiaeNot detectedNoLima City HospitalComment on above:Performed By: #### BCID ####[facility] Xzsqkxxohe6877[address] [place], [place] [address]Dr. Elba AnthonyStrep. pneumoniaeNot detectedNoLima City HospitalComment on above:Performed By: #### BCID ####[facility] Wktbuoiqtk7748[address] [place], [place] [address]Dr. Elba AnthonyStrep. pyogenesNot detectedProMedica Memorial Hospital Comment on above:Performed By: #### BCID ####[facility] Rgtryhboyk6635[address] [place], [place] [address]Dr. Elba AnthonyStreptococcusNot detected NormalCleveland Clinic FoundationComment on above:Performed By: #### BCID ####[facility] Bqwzkefhck1367[address] [place], [place] [address]Dr. Elba Anthony Soledad/B Resist. GeneNot ApplicableNoLima City HospitalComment on above: Performed By: #### BCID ####[facility] Kvnlxownzn969[address] [place], [place] [address]Dr. Elba Brown 51-53-9671Uswfwqucfvv peptide B (Bld) [Mass/Vol]41388.0 pg/mLCritically high<=900.0The [facility] HospitalComment on above:Result Comment: test repeated critical value verifiedPerformed By: #### BMP, BNP, HSTROPN ####[facility] Ltdmaujxft03[address] [place], [place] [address]DrLatoya Rodrigues FADY 3-6on 36-34-8763IO [Catalytic activity/Vol]29 U/LCritically xyb55-100Dcc [facility] HospitalComment on above:Performed By: #### CMREP ####[facility] Nidejhkesz2437 [place] [id number] Mike.MB [Mass/Vol]1.26 ng/mLNormal<=2.37 The [facility] HospitalComment on above:Performed By: #### CMREP ####[facility] Pufasajgui[address] [place], [place] [address]DrLatoya Anthony VESJEV37.4 pg/mLNormal4.0-42.2The [facility] HospitalComment on above:Result Comment: CUT-OFF POINTS HAVE BEEN ESTABLISHED BASED ON THE FOURTH UNIVERSAL DEFINITIONS OF MYOCARDIALINFARCTION. THE UPPER REFERENCE LIMIT (URL) OF TROPONIN, DEFINED THE 99TH PERCENTILE OFcTnI DISTRIBUTION IN A REFERENCE POPULATION, HAS BEEN CONFIRMED THE DECISION THRESHOLDFOR DE DIAGNOSIS. Performed By: #### CMREP ####[facility] Ujrzpbhyht4625[address] [place], [place] [address]DrLatoya Mike [Catalytic activity/Vol]23 U/L Critically rgn53-297GylCleveland Clinic FoundationComment on above:Performed By: #### CMREP ####[facility] Rasbprvuxb6645 [place] [id number] Mike.MB [Mass/Vol]1.41 ng/mLNormal<=2.37[facility] Comment on above:Performed By: #### CMREP ####[facility] Dyinqrlcgi7[address] [place], [place] [address]Dr. Elba AnthonyVhwwtUABCTL44.2 pg/mLNormal 4.0-42.2The [facility] on above:Result Comment: CUT-OFF POINTS HAVE BEEN ESTABLISHED BASED ON THE FOURTH UNIVERSAL DEFINITIONS OF MY OCARDIALINFARCTION. THE UPPER REFERENCE LIMIT (URL) OF TROPONIN, DEFINED THE 99TH PERCENTILE OFcTnI DISTRIBUTION IN A REFERENCE POPULATION, HAS BEEN CONFIRMED THE DECISION THRESHOLDFOR DE DIAGNOSIS.Performed By: #### CMREP ####[facility] Nfhwlnbfxe2073[address] [place], [place] [address]Dr. Elba AnthonyCBC W MANUAL DIFFon 26-56-7774PVEELCXM LYMPH #NormalThe [facility]ton HospitalComment on above:Performed By: #### CBCVINCENT ####[facility] Cezwvfzupq020[address] [place], [place] [address]Dr. Yilan ChangATYPICAL LYMPH %NormalThe [facility] HospitalComment on above:Performed By: #### CBCVINCENT ####[facility] Cykpxuinzo3167[address] [place], [place] [address]Dr. Yilan ChangBAND #Normal0.0-0.3The [facility] HospitalComment on above:Performed By: #### CBCVINCENT ####[facility] Epcqtvdlqk0197[address] [place], [place] [address]Dr. Yilan ChangBAND %Normal0-5The [facility] HospitalComment on above: Performed By: #### CBCVINCENT ####[facility] Ggmmtnbkxr364[address] [place], [place] [address]Dr. Yilan ChangBASOM #0.00 103/ulNormal0.00-0.10The [facility] HospitalComment on above:Performed By: #### CBCVINCENT ####[facility] Bgnzdwodcs9159[address] [place], [place] [address]Dr. Yilan ChangBASOM %0.0 %Critically low0.2-2.0The [facility] HospitalComment on above:Performed By: #### CBCVINCENT ####[facility] Cejpslhmdk7244[address] [place], [place] [address]Dr. Yilan ChangBLAST #NormalThe [facility] HospitalComment on above:Performed By: #### CBCMAN ####[facility] Nwuqenlruf112[address] [place], [place] [address]Dr. Yilan ChangBLAST %NormalThe [facility] HospitalComment on above: Performed By: #### CBCVINCENT ####[facility] Tkvayeyqdf6417[address] [place], [place] [address]Dr. Yilan ChangCORRECTED WBCNormal4.0-11.0The [facility] HospitalComment on above:Performed By: #### CBCMAN ####[facility] Rtnoerxtmt48[address] [place] [address]Dr. Yilan ChangEOS #0.00 103/ulNormal0.00-0.70The [facility] HospitalComment on above:Performed By: #### CBCVINCENT ####[facility] Lpbwjeebyt1398 [place] [address]Dr. Yilan ChangEOS%0.0 %Critically low0.9-7.0The [facility] HospitalComment on above:Performed By: #### CBCVINCENT ####[facility] Aqopitxbgs4479[address] [place], [place] [address]Dr. Yilan QhzfwZGW99.1 %Critically low42.0-54.0 The [facility] HospitalComment on above:Performed By: #### CBCVINCENT ####[facility] Uoyiwfxuce7[address] [place], [place] [address]Dr. Yilan ChangHGB 10.1 g/dlCritically low14.0-18.0The [facility] HospitalComment on above:Performed By: #### CBCVINCENT ####[facility] Wuaeewbctj2925[address] [place], [place] [address]Dr. Nereydalan ChangLYMPHM #0.32 103/ulCritically low1.20-3.80The [facility] HospitalComment on above:Performed By: #### CBCVINCENT ####[facility] Ebzjyhduaj6873[address] [place], [place] [address]Dr. Nereydalan ChangLYMPHM%3.0 % Critically low20.5-60.0The [facility] HospitalComment on above:Performed By: #### CBCVINCENT ####[facility] Uggecbwyft54[address] [place], [place] [address]Dr. Elba OkfylTBZ91.5 pgCritically low25.9-34.0The [facility] Comment on above:Performed By: #### CBCVINCENT ####[facility] Wlaxlkiyma6664[address] [place], [place] [address]Dr. Yilan UbtrxDQQH11.6 g/dlCritically low 29.9-35.2The [facility] HospitalComment on above:Performed By: #### CBCVINCENT ####[facility] Gzcjmjafgq8238[address] [place], [place] [address]Dr. Yisiobhan AnthonyXfdbuQGX74.1 gBQyzvdx91.0-94.0[facility] FoundationComment on above: Performed By: #### CBCMAN ####[facility] Jmltprwtkl74[address] [place] [address]Dr. Yilan ChangMETAMYELOCYTE #NormalCleveland Clinic FoundationComment on above:Performed By: #### CBCMAN ####[facility] Xeuaokwlkq4175 [place] [address]Dr. Yilan ChangMETAMYELOCYTE %NormalCleveland Clinic FoundationComment on above:Performed By: #### CBCMAN ####[facility] Lxnthxedhd9[address] [place], [place] [address]Dr. Yilan ChangMONOM#0.11 103/ulCritically low0.30-0.80The [facility] HospitalComment on above:Performed By: #### CBCVINCENT ####[facility] Eizoxiylfq[address] [place], [place] [address]Dr. Yilan ChangMONOM%1.0 %Critically low1.7-12.0 The [facility] HospitalComment on above:Performed By: #### CBCVINCENT ####[facility] Lqoagmbsgn[address] [place], [place] [address]Dr. Yilan ChangMPV 10.4 fLNormal9.5-13.5The [facility] HospitalComment on above:Performed By: #### CBCVINCENT ####[facility] Ydzahotwnp[address] [place], [place] [address]Dr. Yilan ChangMYELOCYTE #NormalCleveland Clinic FoundationComment on above: Performed By: #### CBCMAN ####[facility] X[address]aenshrw[address] [place] [address]Dr. Yilan ChangMYELOCYTE %NormalCleveland Clinic Foundation Comment on above:Performed By: #### CBCMAN ####[facility] Swpqrpxjxs[address] [place], [place] [address]Dr. Yilan ChangNRBCNormalThKettering Health DaytonComment on above:Performed By: #### CBCVINCENT ####[facility] Nhncdcdwvn[address] [place], [place] [address]Dr. Yilan ChangOVALOCYTES SLIGHTNoLima City HospitalComment on above:Performed By: #### CBCMAN ####[facility] Vndvgakfyu[address] [place] [address]Dr. Elba AnthonyPLT154 103/lsGvbqlx049-536Edi [facility] HospitalComment on above: Performed By: #### CBCMAN ####[facility] Ydzhkcsiwt[address] [place] [address]Dr. Elba ChangPOIKILOCYTOSIS1+NormalThe Cummington HospitalComment on above:Performed By: #### CBCMAN ####[facility] Mgquncrpdv26[address] [place] [address]Dr. Elba AnthonyRBC3.96 106/ul Critically low4.70-6.10The [facility] HospitalComment on above:Performed By: #### CBCMAN ####[facility] Yx[address] [place], [place] [address]Dr. Elba AnthonyRDW19.0 %Critically high11.0-15.0The [facility] Comment on above:Performed By: #### CBCMAN ####[facility] Viphzggfwe[address] [place], [place] [address]Dr. Elba AtnhonySEG #10.37 103/ulCritically high1.40-6.50The [facility] HospitalComment on above:Performed By: #### CBCMAN ####[facility] Kvjdqkfcky[address] [place], [place] [address]Dr. Elba AnthonySEG %96.0 %Critically high43.0-75.0The [facility] HospitalComment on above:Performed By: #### CBCMAN ####[facility] Iuubqmysyw7[address] [place] [address]Dr. Elba AnthonyTEAR DROP CELLSSLIGHTNoLima City HospitalComment on above:Performed By: #### CBCMAN ####[facility] Xiqxrcdsjn9[address] [place] [address]Dr. Elba AnthonyWBC10.8 103/ul Normal4.0-11.0The [facility] HospitalComment on above:Performed By: #### CBCMAN ####[facility] Rajrwxsyqn[address] [place], [place] [address]Ls. Elba AnthonyCRPon 67-06-7244TRW5.1 mg/dLCritically high<=1.0The [facility] Comment on above:Performed By: #### CRP, TSH, T4 ####[facility] Ldkwtenhlm14[address] [place], [place]Dr. Yisiobhan ChangCULTURE BLOODon 18-82-7737Uvsdlmleegn examination of blood, cultureCulture Observations: Positive blood culture. Aerobic & anaerobic bottles. BCID=Pseudomonas aeruginosa Culture Observations: Sending to [facility] for workup.NormalThe [facility] HospitalComment on above: Performed By: #### BLDCX2 ####[facility] Sgnlattbby[address] [place] [id number]. Nereydasiobhan ChangMicroscopic examination of blood, cultureCulture Observations: Positive blood culture. Aerobic bottle. BCID= Pseudomonas aeruginosa. Culture Observations: Sending to [facility] for workup. Culture Observations: NO GROWTH AT 5 DAYS. ANAEROBIC BOTTLENormalThe [facility] HospitalComment on above:Performed By: #### BLDCX1 ####[facility] Jfhgqwcgmr[address] [place], [place] [address]Dr. Elba RajCovid-19 PCR (CVDTB)on 12-12-2021 SARS-CoV-2 (COVID-19) RNA ELIZABETH+probe Ql (Unsp spec)Not detectedNormalNOT DETECTED The [facility] HospitalComment on above:Result Comment: When diagnostic testing is negative, the possibility of a false negative should be considered inthe context of a patient's recent exposures and the presence of clinical signs and symptomsconsistent with SARS-CoV-2.This test is not yet approved or cleared by the [place] Food and Drug Administration (FDA).This test was developed by [employer], [place], [place]. The performance characteristics ofthis test were validated by The [facility]. The results arenot intended to beused as the sole means for clinical diagnosis or patient management decisions. The [facility] is authorized under Clinical Laboratory Improvement Amendments (CLIA) to perform high-complexity testing.This test is not yet approved or cleared by the [place] FDA. When there are no FDA- approved or cleared tests available, and other criteria are met, FDA can make tests available under an emergency access mechanism called an Emergency Use Authorization (EUA). The EUA for this test is supported by the [employer] Grader of Health and Human Service's declaration that circumstancesexist to justify the emergency use of in vitro diagnostics for the detection and/or diagnosis of the virus that causes COVID-19. This EUA will remain in effect for the duration of the COVID-19 declaration justifying emergency of IVDs, unless it is terminated or revoked by the FDA (after which the test may no longer be used).Performed By: #### CVDTBH ####[facility] Wfmcxbxnqa[address] [place], [place] [address]Dr. Nereydalan ChangLACTATE/LACTIC ACIDon 73-91-7580Onfbvvt [Moles/Vol]2.0 mmol/LNormal0.7-2.0The [facility] HospitalComment on above:Performed By: #### LACT ####[facility] Oeqonlqruj[address] [place], [place] [address]Dr. Yilan ChangLactate [Moles/Vol]1.7 mmol/LNormal0.7-2.0The [facility] Comment on above:Performed By: #### LACT ####[facility] Gbadxxkppm[address] [place], [place] [address]Dr. Nereydalan ChangPROF CHEM 8 (BAS METB)on 38-58-1008Tkfnv gap [Moles/Vol]14.7 mmol/LNormalThe [facility] HospitalComment on above:Performed By: #### BMP, BNP, HSTROPN ####[facility] Qojuxgersc[address] [place], [place] [address]Dr. Elba ChangCalcium [Mass/Vol]8.6 mg/dL Normal8.5-10.1The [facility] HospitalComment on above:Performed By: #### BMP, BNP, HSTROPN ####[facility] Diwmsdteqg[address] [place], [place] [address]Dr. Yilan ChangChloride [Moles/Vol]102 mmol/VVhgmuj40-491Tdx [facility] HospitalComment on above:Performed By: #### BMP, BNP, HSTROPN ####[facility] Fttocdwruh[address] [place] [address]Dr. Yilan ChangCO2 [Moles/Vol]25.4 mmol/DXpfhpw61.0-30.0The [facility] HospitalComment on above: Performed By: #### BMP, BNP, HSTROPN ####[facility] Vfhtyzhtsb32[address] [place] [address]Dr. Yilan ChangCreatinine [Mass/Vol]2.29 mg/dL Critically high0.66-1.25The [facility] HospitalComment on above:Performed By: #### BMP, BNP, HSTROPN ####[facility] Ezbluovuck[address] [place], [place] [address]Dr. Yilan ChangEGFR-AF YKJWJTNC62 mL/min/1.73m2 Critically low>=60The [facility] HospitalComment on above:Performed By: #### BMP, BNP, HSTROPN ####[facility] Ogetuiyydt9[address] [place], [place] [address]Dr. Yilan ChangEGFR-NON AF NCZRLHWE70 mL/min/1.89o6Ctlndkjszv low>=60The [facility] HospitalComment on above:Performed By: #### BMP, BNP, HSTROPN ####[facility] Kgnagwwmku[address] [place], [place] [address]Dr. Yilan ChangGlucose [Mass/Vol]130 mg/dLCritically ulws43-291Nav [facility] Comment on above:Performed By: #### BMP, BNP, HSTROPN ####[facility] Xtqbbvpdcg[address] [place], [place] [address]Dr. Yilan ChangPotassium [Moles/Vol]4.1 mmol/LNormal3.4-5.0The [facility] HospitalComment on above: Performed By: #### BMP, BNP, HSTROPN ####[facility] Bllwztpmru[address] [place], [place] [address]Dr. Yilan ChangSodium [Moles/Vol]138 mmol/LNormal 137-145The [facility] HospitalComment on above:Performed By: #### BMP, BNP, HSTROPN ####[facility] Qwwbcdfjcf14[address] [place] [address]Dr. Yilan ChangUrea nitrogen [Mass/Vol]43.0 mg/dLCritically high7.0-18.0The [facility] HospitalComment on above:Performed By: #### BMP, BNP, HSTROPN ####[facility] Iwjxvobqps12[address] [place] [address]Dr. Yilan ChangUrea nitrogen/Creatinine [Mass ratio]18.8 mg/mgNoLima City HospitalComment on above:Performed By: #### BMP, BNP, HSTROPN ####[facility] Rcygvkcekl[address] [place] [address]Dr. Nereydalan XhqzoK9wk 62-53-9567L5 [Mass/Vol]11.10 ug/dLCritically high5.53-11.00[facility] Comment on above:Performed By: #### CRP, TSH, T4 ####[facility] Ollxcioard[address] [place], [place] [address]Dr. Nereydalan ChangTROPONIN, HIGH SENSITIVITYon 53-65-1330QYUIXC65.2 pg/mLNormal4.0-42.2The [facility] Comment on above:Result Comment: CUT-OFF POINTS HAVE BEEN ESTABLISHED BASED ON THE FOURTH UNIVERSAL DEFINITIONS OF MYOCARDIALINFARCTION. THE UPPER REFERENCE LIMIT (URL) OF TROPONIN, DEFINED THE 99TH PERCENTILE OFcTnI DISTRIBUTION IN A REFERENCE POPULATION, HAS BEEN CONFIRMED THE DECISION THRESHOLDFOR DE DIAGNO SIS.Performed By: #### BMP, BNP, HSTROPN ####[facility] Umvectlxle[address] [place] [address]Dr. Yilan ChangTSHon 34-92-8806OHQ0.233 uIU/mLNormal0.470-4.680The [facility] HospitalComment on above:Performed By: #### CRP, TSH, T4 ####[facility] Erzjbvqhsu[address] [place] [address]Dr. Yilan ChangTSH RANGESEE BELOWProMedica Memorial HospitalComment on above:Result Comment: <0.34 UIU/ml HYPERTHYROID 0.34-5.60 UIU/ml EUTHYROID >5.60 UIU/ml HYPOTHYROIDPerformed By: #### CRP, TSH, T4 ####[facility] Dxfl[address]auvxn[address] [place], [place]Dr. Elba AnthonyUS ARLIN DOP LEG RTon 00-10-9859IK ARLIN DOP LEG RTNoLima City HospitalXR TIB_FIB RT 2Von 98-89-0849KE TIB_FIB RT 2VProMedica Memorial HospitalAPTTon 24-67-6522uFWA Coag (Bld) [Time]34.5 oKqnzae91.0-35.0The [facility] CenterComment on above:Result Comment: ALL RESULTS MUST BE INTERPRETED WITH RESPECT TO BLOOD DRAWING ARTIFACT OR DILUTION ERROR OF ANTICOAGULANT AT THE TIME OF SAMPLING. THE APTT SHOULD NOT BE USED TO MONITOR UNFRACTIONATED HEPARIN THERAPY, THIS LABORATORY NO LONGER HAS AN ESTABLISHED THERAPEUTIC RANGE BASED ON THE APTT. IT IS RECOMMENDED THAT THE UFH - HEPARIN ASSAY (ANTI-XA ACTIVITY) BE USED FOR THIS PURPOSE.Performed By: #### [id number] #### [facility] [address] [place] [address], USABASIC METABOLIC PANELon 59-88-0919Bdilafb [Mass/Vol]8.6 mg/dLNormal8.6-10.3The [facility] CenterComment on above:Order Comment: No: Do not add to previous drawPerformed By: #### [id number] #### [facility] [address] [address] [place] [address], USAChloride [Moles/Vol]108 mmol/XLanv50-191Cgr [facility] CenterComment on above:Order Comment: No: Do not add to previous drawPerformed By: #### [id number] #### [facility] [address] [facility] [place] [address], USACO2 [Moles/Vol]20 mmol/MIyy69-33Khk [facility] CenterComment on above:Order Comment: No: Do not add to previous draw Performed By: #### [id number] #### [facility] [address] [place] [address], USACreatinine [Mass/Vol]2.66 mg/dLHigh0.70-1.30The [facility] CenterComment on above:Order Comment: No: Do not add to previous drawPerformed By: #### [id number] #### [facility] [address] [place] [address], USAeGFR- Nuohmuwp04 ml/min/1.73sq mAbnormal>60The [facility] CenterComment on above:Order Comment: No: Do not add to previous drawPerformed By: #### [id number] #### [facility] [address] [place] [address], USAeGFR- non- Hbbozgfb14 ml/min/1.73sq mAbnormal>60The [facility] CenterComment on above:Order Comment: No: Do not add to previous drawPerformed By: #### [id number] #### [facility] [address] [place] [address], USAGlucose [Mass/Vol]125 mg/wKAati34-580Ldw [facility] CenterComment on above:Order Comment: No: Do not add to previous drawPerformed By: #### [id number] #### [facility] [address] [place] [address], USAPotassium [Moles/Vol]4.4 mmol/LNormal3.5-5.1The [facility] CenterComment on above:Order Comment: No: Do not add to previous drawPerformed By: #### [id number] #### [facility] [address] [place] [address], USASodium [Moles/Vol]138 mmol/WMukurz449-038Tzz [facility] CenterComment on above:Order Comment: No: Do not add to previous drawPerformed By: #### [id number] #### [facility] [address] [place] [address], USAUrea nitrogen [Mass/Vol]54 mg/dLHigh7-25The [facility] CenterComment on above:Order Comment: No: Do not add to previous drawPerformed By: #### [id number] #### [facility] [address] [place] [address], USACalcium [Mass/Vol]8.5 mg/dLLow8.6-10.3The [facility] CenterComment on above:Order Comment: No: Do not add to previous drawPerformed By: #### [id number] #### [facility] [address] [place] [address], USAChloride [Moles/Vol]107 mmol/OEccakb58-084Icw [facility] CenterComment on above:Order Comment: No: Do not add to previous drawPerformed By: #### [id number] #### [facility] [address] [place] [address], USACO2 [Moles/Vol]23 mmol/ZUanyfn68-56Dpn [facility] CenterComment on above:Order Comment: No: Do not add to previous draw Performed By: #### [id number] #### [facility] [address] [place] [address], USACreatinine [Mass/Vol]2.86 mg/dLHigh0.70-1.30The [facility] CenterComment on above:Order Comment: No: Do not add to previous drawPerformed By: #### [id number] #### [facility] [address] [place] [address], USAeGFR- Ehoztiqy11 ml/min/1.73sq mAbnormal>60The [facility] CenterComment on above:Order Comment: No: Do not add to previous drawPerformed By: #### [id number] #### [facility] [address] [place] [address], USAeGFR- non- Egtqmefk79 ml/min/1.73sq mAbnormal>60The [facility] CenterComment on above:Order Comment: No: Do not add to previous drawPerformed By: #### [id number] #### [facility] [address] [place] [address], USAGlucose [Mass/Vol]114 mg/yYBjmf11-728Sop [facility] CenterComment on above:Order Comment: No: Do not add to previous drawPerformed By: #### [id number] #### [facility] [address] [place] [address], USAPotassium [Moles/Vol]4.5 mmol/LNormal3.5-5.1The [facility] CenterComment on above:Order Comment: No: Do not add to previous drawPerformed By: #### [id number] #### [facility] [address] [place] [address], USASodium [Moles/Vol]138 mmol/ENctchd808-506Bck [facility] CenterComment on above:Order Comment: No: Do not add to previous drawPerformed By: #### [id number] #### [facility] [address] [place] [address], USAUrea nitrogen [Mass/Vol]58 mg/dLHigh7-25The [facility] CenterComment on above:Order Comment: No: Do not add to previous drawPerformed By: #### [id number] #### [facility] [address] [facility] [place] [address], [facility] CENTERCBC W/DIFFon 49-77-7011YNN IMM GRANS0.0 10*3/uLNormal 0.0-0.2The [facility] CenterComment on above:Order Comment: No: Do not add to previous drawPerformed By: #### 60094 #### [facility] [address] [facility] [place] [address], USAABS NEUTROPHILS5.7 10*3/uLNormal1.6-7.6The [facility] CenterComment on above:Order Comment: No: Do not add to previous drawPerformed By: #### 75532 #### [facility] [address] [place] [address], USABasophils (Bld) [#/Vol]0.0 10*3/uLNormal0.0-0.2The [facility] CenterComment on above:Order Comment: No: Do not add to previous drawPerformed By: #### [id number] #### [facility] [address] [place] [address], USABasophils/100 WBC (Bld)0.4 %Normal0.0-1.0The [facility] CenterComment on above:Order Comment: No: Do not add to previous drawPerformed By: #### 88545 #### [facility] [address] [place] [address], USAEosinophils (Bld) [#/Vol]0.0 10*3/uLNormal0.0-0.5The [facility] CenterComment on above:Order Comment: No: Do not add to previous drawPerformed By: #### 57729 #### [facility] [address] [place] [address], USAEosinophils/100 WBC (Bld)0.6 %Normal0.0-6.0The [facility] CenterComment on above:Order Comment: No: Do not add to previous drawPerformed By: #### [id number] #### [facility] [address] [place] [address], USAErythrocyte distribution width (RBC) [Ratio]14.8 %Normal 11.5-15.0The [facility] CenterComment on above:Order Comment: No: Do not add to previous drawPerformed By: #### [id number] #### [facility] [address] [place] [address], USAHematocrit (Bld) [Volume fraction]37.0 %Low39.0-50.0The [facility] CenterComment on above:Order Comment: No: Do not add to previous drawPerformed By: #### 59083 #### [facility] [address] [place] [address], USAHemoglobin (Bld) [Mass/Vol]11.4 g/dLLow13.0-17.0The [facility] CenterComment on above:Order Comment: No: Do not add to previous drawPerformed By: #### 83216 #### [facility] [address] [place] [address], USAIMMATURE GRANS0.4 %Normal0.0-1.0The [facility] CenterComment on above:Order Comment: No: Do not add to previous draw Performed By: #### 72800 #### [facility] [address] [place] [address], USALymphocytes (Bld) [#/Vol]0.4 10*3/uLLow1.2-4.0The [facility] CenterComment on above:Order Comment: No: Do not add to previous drawPerformed By: #### [id number] #### [facility] [address] [place] [address], USALymphocytes/100 WBC (Bld)5.6 %Low20.0-45.0The [facility] CenterComment on above:Order Comment: No: Do not add to previous drawPerformed By: #### [id number] #### [facility] [address] [place] [address], [facility] (RBC) [Entitic mass]27.9 ywOieouz22.0-33.0The [facility] CenterComment on above:Order Comment: No: Do not add to previous drawPerformed By: #### 76863 #### [facility] [address] [place] [address], USAMCHC (RBC) [Mass/Vol]30.8 g/dLLow32.0-35.0The [facility] CenterComment on above:Order Comment: No: Do not add to previous drawPerformed By: #### 51032 #### [facility] [address] [place] [address], [facility] CENTERMCV (RBC) [Entitic vol]90.5 mZFvxnhu33.0-98.0The [facility] CenterComment on above:Order Comment: No: Do not add to previous drawPerformed By: #### [id number] #### [facility] [address] [place] [address], [facility] CENTERMonocytes (Bld) [#/Vol]0.6 10*3/uLNormal0.1-1.0The [facility] CenterComment on above:Order Comment: No: Do not add to previous drawPerformed By: #### [id number] #### [facility] [address] [place] [address], USAMONOS8.7 %Normal5.0-12.0The [facility] CenterComment on above:Order Comment: No: Do not add to previous drawPerformed By: #### [id number] #### [facility] [address] [place] [address], USANeutrophils/100 WBC (Bld)84.3 %High40.0-72.0The [facility] CenterComment on above:Order Comment: No: Do not add to previous drawPerformed By: #### [id number] #### [facility] [address] [place] [address], USANucleated RBC/100 WBC (Bld) [Ratio]0 %Normal0-0The [facility] CenterComment on above:Order Comment: No: Do not add to previous drawPerformed By: #### [id number] #### [facility] [address] [place] [address], USAPLAT POL797 10*3/vTBlb616-812Vrs [facility] CenterComment on above:Order Comment: No: Do not add to previous draw Performed By: #### [id number] #### [facility] [address] [facility] [place] [address], USARBC (Bld) [#/Vol]4.09 10*6/uLLow4.20-5.70The [facility] CenterComment on above:Order Comment: No: Do not add to previous drawPerformed By: #### [id number] #### [facility] [address] [facility] [place] [address], USAWBC (Bld) [#/Vol]6.75 10*3/uLNormal4.00-10.60The [facility] CenterComment on above:Order Comment: No: Do not add to previous drawPerformed By: #### [id number] #### [address] [place] [address], USACHEST AND [facility] [id number] AND [facility] Department of Radiology [address] [place] [id number] Patient Name: MAN PATEL : 1950 Sex: M Age: Race: White Pt. Location: [facility] Patient Status: I Ordered Date: 08/01/2021 [...] pneumothorax. Electronically signed: Dilcia Hernandez. Transcribed by: [email or web address], User Resident: Electronically Signed by: DILCIA HERNANDEZ @ 08/01/2021 08:57 AMNormalThe [facility] CenterComment on above:Order Comment: Check Pacemaker/AICD Lead Position, Chest X-ray PA \EANDE\ LAT in Dept ;DO NOT lift a ffected arm above shoulder. S/P pacemaker/ICD implant. Verify lead placementCPK on [id number] [Catalytic activity/Vol]576 U/OPywp90-521Soh [facility] CenterComment on above:Performed By: #### [id number] #### [facility] [address] [place] [address], [facility] CENTERCardiovascular Lab Reporton [id number] Lab ReportUnChillicothe VA Medical Center Patient Name: [place] [facility] MR #: [id number] Department of Physician: Scout Franks M.D. Medicine Service Date: 07/31/2021 Division of Birthdate: 1950 Cardiology Room #: 5AB 518394 Adult Cardiovascular Services [address] [place] [address] Cardiovascular Laboratory Report INDICATION FOR PERMANENT PACEMAKER [...] Fluoroscopy. 6. Conscious sedation. Electronically Signed by: Scout Franks M.D. 08/06/2021 07:53 P Scout Franks M.D. Date Dict: 07/31/2021/04:01 P/Scout Franks M.D. Date Trans: 08/01/2021 05:31 A/surekha DN_JN:[id number]SIUM BLOOD on 43-12-5441Dwyangqln [Mass/Vol]2.2 mg/dLNormal1.9-2.7The [facility] CenterComment on above:Order Comment: No: Do not add to previous draw Performed By: #### [id number] #### [place] [address] [place] [address], USAPHOSPHORUS BLOODon 59-73-7355Xtejacjvo [Mass/Vol]2.9 mg/dL Normal2.5-5.0The [facility] Medical CenterComment on above:Order Comment: No: Do not add to previous drawPerformed By: #### [id number] #### [facility] [address] [place] [address], USAPROTHROMBIN TIMEon 14-41-4019CEI Coag (PPP) [Relative time] 1.54 {INR}High0.91-1.16The [facility] Medical CenterComment on above: Order Comment: No: Do not add to previous drawResult Comment: ACCCP RECOMMENDED INR FOR WARFARIN THERAPY ------- CONDITION INR PROPHYLAXIS OF VENOUS THROMBOSIS 2-3 (HIGH-RISK SURGERY) TREATMENT OF VENOUS THROMBOSIS 2-3 TREATMENT OF PULMONARY EMBOLISM 2-3 PREVENTION OF SYSTEMIC EMBOLISM: 2-3 ACUTE MYOCARDIAL INFARCTION TISSUE HEART VALVES VALVULAR HEART DISEASE ATRIAL FIBRILLATION RECURRENT SYSTEMIC EMBOLISM MECHANICAL HEART VALVE 2.5-3.5 FROM: ORAL ANTICOAGULANTS. MECHANISM OF ACTION, CLINICAL EFFECTIVENESS, AND OPTIMAL THERAPEUTIC RANGE. CHEST 1995;108:231S-246S.Performed By: #### [id number] #### [facility] [address] [place] [address], USAPT Coag (PPP) [Time]18.4 sHigh12.3-14.8The [facility] CenterComment on above:Order Comment: No: Do not add to previous drawResult Comment: ALL RESULTS MUST BE INTERPRETED WITH RESPECT TO BLOOD DRAWING ARTIFACT OR DILUTION ERROR OF ANTICOAGULANT AT THE TIME OF SAMPLING.Performed By: #### [id number] #### [facility] [address] [place] [address], USAINR Coag (PPP) [Relative time]1.68 {INR}High0.91-1.16The [facility] Medical CenterComment on above:Result Comment: ACC RECOMMENDED INR FOR WARFARIN THERAPY ------- CONDITION INR PROPHYLAXIS OF VENOUS THROMBOSIS 2-3 (HIGH-RISK SURGERY) TREATMENT OF VENOUS THROMBOSIS 2-3 TREATMENT OF PULMONARY EMBOLISM 2-3 PREVENTION OF SYSTEMIC EMBOLISM: 2-3 ACUTE MYOCARDIAL INFARCTION TISSUE HEART VALVES VALVULAR HEART DISEASE ATRIAL FIBRILLATION RECURRENT SYSTEMIC EMBOLISM MECHANICAL HEART VALVE 2.5-3.5 FROM: ORAL ANTICOAGULANTS. MECHANISM OF ACTION, CLINICAL EFFECTIVENESS, AND OPTIMAL THERAPEUTIC RANGE. CHEST 1995;108:231S-246S.Performed By: #### [id number] #### [facility] [address] [facility] [place] [address], USAPT Coag (PPP) [Time]19.7 sHigh12.3-14.8The [facility] Medical CenterComment on above:Result Comment: ALL RESULTS MUST BE INTERPRETED WITH RESPECT TO BLOOD DRAWING ARTIFACT OR DILUTION ERROR OF ANTICOAGULANT AT THE TIME OF SAMPLING.Performed By: #### [id number] #### [facility] [address] [place] [address], USAURIC ACID BLOODon 64-37-7175Ucntf [Mass/Vol]10.1 mg/dLHigh 4.4-7.6The [facility] CenterComment on above:Performed By: #### [id number] #### [facility] [address] [place] [address], USABASIC METABOLIC PANELon 59-54-1586Wwpxefx [Mass/Vol]7.3 mg/dLLow8.6-10.3The [facility] CenterComment on above: Performed By: #### [id number] #### [facility] [address] [place] [address], USAChloride [Moles/Vol]111 mmol/NOiud27-200Gqs [facility] CenterComment on above:Performed By: #### [id number] #### [facility] [address] [place] [address], USACO2 [Moles/Vol]17 mmol/ZCuj87-45Wfc [facility] CenterComment on above:Performed By: #### [id number] #### [facility] [address] [place] [address], USACreatinine [Mass/Vol]2.68 mg/dLHigh0.70-1.30The [facility] CenterComment on above:Performed By: #### [id number] #### [facility] [address] [place] [address], USAeGFR- Rhvhqwqe66 ml/min/1.73sq mAbnormal>60The [facility] CenterComment on above:Performed By: #### [id number] #### [facility] [address] [place] [address], USAeGFR- non- Opfmesur80 ml/min/1.73sq mAbnormal>60The [facility] CenterComment on above:Performed By: #### [id number] #### [facility] [address] [place] [address], USAGlucose [Mass/Vol]147 mg/jHGrsi03-404Xtf [facility] CenterComment on above:Performed By: #### [id number] #### [facility] [address] [place] [address], USAPotassium [Moles/Vol]4.4 mmol/LNormal3.5-5.1The [facility] CenterComment on above:Performed By: #### 45043 #### [facility] [address] [place] [address], USASodium [Moles/Vol]138 mmol/OHqubun121-943Aom [facility] CenterComment on above:Performed By: #### 84712 #### [facility] [address] [place] [address], USAUrea nitrogen [Mass/Vol]55 mg/dLHigh7-25The [facility] CenterComment on above:Performed By: #### 74276 #### [facility] [address] [place] [address], PRES[facility] MEDICAL CENTERCBC W/DIFFon 55-98-9808WVV IMM GRANS0.0 10*3/uLNormal 0.0-0.2The [facility] CenterComment on above:Performed By: #### [id number] #### [facility] [address] [place] [address], USAABS RQQNXOCMRAO26.7 10*3/uLHigh1.6-7.6The [facility] CenterComment on above:Performed By: #### 75963 #### [facility] [address] [place] [address], [facility] CENTERBasophils (Bld) [#/Vol]0.0 10*3/uLNormal0.0-0.2The [facility] CenterComment on above:Performed By: #### [id number] #### [facility] [address] [place] [address], [facility] CENTERBasophils/100 WBC (Bld)0.3 %Normal0.0-1.0The [facility] CenterComment on above:Performed By: #### [id number] #### [facility] [address] [place] [address], USAEosinophils (Bld) [#/Vol]0.1 10*3/uLNormal0.0-0.5The [facility] CenterComment on above:Performed By: #### 93615 #### [facility] [address] [facility] [place] [place] [address], USAEosinophils/100 WBC (Bld)0.4 %Normal0.0-6.0The [facility] CenterComment on above:Performed By: #### [id number] #### [facility] [address] [facility] [place] [address], USAErythrocyte distribution width (RBC) [Ratio]14.6 %Normal 11.5-15.0The [facility] CenterComment on above:Performed By: #### 91440 #### [facility] [address] [facility] [place] [address], USAHematocrit (Bld) [Volume fraction]44.3 %Jcbwfb26.0-50.0The [facility] CenterComment on above:Performed By: #### 13953 #### [facility] [address] [facility] [place] [address], USAHemoglobin (Bld) [Mass/Vol]13.6 g/yIFfepdz04.0-17.0The [facility] CenterComment on above:Performed By: #### 64442 #### [facility] [address] [facility] [place] [address], USAIMMATURE GRANS0.3 %Normal0.0-1.0The [facility] CenterComment on above:Performed By: #### 91176 #### [facility] [address] [facility] [place] [address], USALymphocytes (Bld) [#/Vol]0.5 10*3/uLLow1.2-4.0The [facility] CenterComment on above:Performed By: #### 08825 #### [facility] [address] [place] [address], USALymphocytes/100 WBC (Bld)4.1 %Low20.0-45.0The [facility] CenterComment on above:Performed By: #### 89863 #### [facility] [address]USJose Francisco. [place] [id number], [facility] (RBC) [Entitic mass]27.6 rmUfzquq30.0-33.0The [facility] CenterComment on above:Performed By: #### 80856 #### [facility] [address] [facility] [place] [address], [facility] MEDICAL CENTERMCHC (RBC) [Mass/Vol]30.7 g/dLLow32.0-35.0The [facility] CenterComment on above:Performed By: #### 75319 #### [facility] [address] [facility] [place] [address], [facility] CENTERMCV (RBC) [Entitic vol]90.0 iLLddnkt81.0-98.0The [facility] CenterComment on above:Performed By: #### 34678 #### [facility] [address] [facility] [place] [address], USAMonocytes (Bld) [#/Vol]1.0 10*3/uLNormal0.1-1.0The [facility] CenterComment on above:Performed By: #### 41702 #### [facility] [address] [facility] [place] [address], USAMONOS8.3 %Normal5.0-12.0The [facility] CenterComment on above:Performed By: #### 19505 #### [facility] [address] [facility] [place] [address], USANeutrophils/100 WBC (Bld)86.6 %High40.0-72.0The [facility] CenterComment on above:Performed By: #### 70411 #### [facility] [address] [facility] [place] [address], USANucleated RBC/100 WBC (Bld) [Ratio]0 %Normal0-0The [facility] CenterComment on above:Performed By: #### 50147 #### [facility] [address] [facility] [place] [address], USAPLAT KAN128 10*3/gHQxxkjy068-555Umz [facility] CenterComment on above:Performed By: #### 63598 #### [facility] [address] [place] [place] [address], USARBC (Bld) [#/Vol]4.92 10*6/uLNormal4.20-5.70The [facility] CenterComment on above:Performed By: #### [id number] #### [facility] [address] [place] [place] [address], USAWBC (Bld) [#/Vol]12.36 10*3/uLHigh4.00-10.60The [facility] CenterComment on above:Performed By: #### 81628 #### [facility] [address] [facility] [place] [address], USAPOC SARS COV2 ANTIGEN NEGATIVEon 26-27-5647NNW SARS COV2 ANTIGEN NEGNegativeNormalNEGATIVEThe [facility] CenterComment on above:Result Comment: Negative results from patients with symptom onset beyond [...] signs and symptoms consistent with COVID-19. The [employer] COVID-19 Ag Card is a lateral flow [...] Waiver, Certificate of Compliance, or Certificate of Accreditation.Performed By: #### [id number] ####[facility] [place] [place] [address], USAPORTABLE CHEST 1 VIEWon 07-31-2021 PORTABLE CHEST 1 VIEWUnPremier Health [facility] Department of Radiology [address] [place] [address] Patient Name: MAN PATEL : 1950 Sex: M Age: Race: White Pt. Location: [facility] Patient Status: E Ordered Date: 07/31/2021 [...] sternotomy. Electronically signed: Rinku Agrawal. Transcribed by: Heidy, User Resident: Electronically Signed by: RINKU AGRAWAL @ 07/31/2021 01:03 PMNormalThe [facility] Medical CenterComment on above:Order Comment: Evaluate for Aspiration TROPONIN-Ion 80-21-4139Olduzini I.cardiac [Mass/Vol]0.07 ng/mLHigh0.00-0.04The [facility] CenterComment on above:Result Comment: REFERENCE RANGES: 0.00 - 0.04 ng/ml NORMAL 0.05 - 0.50 ng/ml INDETERMINATE > 0.50 ng/ml CONSISTENT WITH AN M.I.Performed By: #### [id number] #### [facility] [address] [facility] [place] [address], [facility] CENTERTSH3 WITH REFLEX FT4on 06-22-9690FNO 3RD GENERATION1.98 uIU/mLNormal0.34-5.60The [facility] CenterComment on above: Performed By: #### [id number] #### [facility] [address] [facility] [place] [address], [facility] Vital Signs Date TimeVital SignValuePerforming CvqjqxinqVvyscrfn91-49-6700 15:03-0400Body knzqib420.64 cmCullen Costa MD Work Phone: [facility]10-14-2025 15:03-0400 Body mass index (BMI) [Ratio]48.7 kg/x8TyhffxCullen Costa MD Work Phone: [phone]10-14-2025 15:03-0400 Body ovkpjt424.98 kgCullen Costa MD Work Phone: [facility]10-14-2025 15:03-0400 Diastolic blood rsrnoaff15 mm[Hg]Cullen Costa MD Work Phone: [phone]10-14-2025 15:03-0400 Heart rate71 /Eduard Costa MD Work Phone: [facility]10-14-2025 15:03-0400 Respiratory rate18 /Eduard Costa MD Work Phone: [phone]10-14-2025 15:03-0400 SaO2% (BldA) [Mass fraction]96 %Cullen Costa MD Work Phone: [phone]10-14-2025 15:03-0400 Systolic blood uijhquve475 mm[Hg]Cullen Costa MD Work Phone: [phone] [place], [place] [address]807-31-2025 09:07-0400 Body .64 cmCullen Costa MD Work Phone: [phone] [place], [place] [address]807-31-2025 09:07-0400 Body mass index (BMI) [Ratio]48.4 kg/c0KmzfcdCullen Costa MD Work Phone: [phone] [place], [place] [address]807-31-2025 09:07-0400 Body dgatfz981.24 kgCullen Costa MD Work Phone: [phone] [place], [place] [address]807-31-2025 09:07-0400 Diastolic blood ozdtuvli83 mm[Hg]Cullen Costa MD Work Phone: [phone] [place], [place] [address]807-31-2025 09:07-0400 Heart rate84 /Edurad Costa MD Work Phone: [phone] [place], [place] 70[address]807-31-2025 09:07-0400 Respiratory rate14 /Eduard Costa MD Work Phone: [phone] [place], [place] [address]807-31-2025 09:07-0400 SaO2% (BldA) [Mass fraction]96 %Cullen Costa MD Work Phone: [phone] [place], [place] [address]807-31-2025 09:07-0400 Systolic blood xudimxyl137 mm[Hg]Cullen Costa MD Work Phone: [phone] [place], [place] [address]806-10-2025 13:43-0400 Body .64 cmK[facility]06-10-2025 13:43-0400Body mass index (BMI) [Ratio]49.2 kg/q9RexdxpdmkK[facility]tering Health [facility]06-10-2025 13:43-0400Body uzxgge840.34 kgKettering Health [facility]06-10-2025 13:43-0400Diastolic blood rwhafbti49 mm[Hg][facility] 02-15-2025 13:43-0400Heart rate83 /minK[facility]tering [facility] 02-15-2025 13:43-0400Respiratory rate16 /minKettering Health [facility] 02-15-2025 13:43-8540XmL5% (BldA) [Mass fraction]96 %[facility]06-10-2025 13:43-0400Systolic blood zzbwjzha284 mm[Hg][facility]02-04-2025 15:17-0500Body .64 cmKettering [facility]02-04-2025 15:17-0500Body mass index (BMI) [Ratio]45.6 kg/m2 [facility]02-04-2025 15:17-0500Body eifxrwwavpe06 [degF] [facility]02-04-2025 15:17-0500Body ufcrqx341.36 kg [facility]02-04-2025 15:17-0500Diastolic blood mm[Hg][facility]02-04-2025 15:17-0500Heart rate60 /min [facility]02-04-2025 15:17-0500Respiratory rate16 /min [facility]02-04-2025 15:17-5325FzW0% (BldA) [Mass fraction]96 %[facility]02-04-2025 15:17-0500Systolic blood gpemllop227 mm[Hg][facility]10-01-2024 13:54-0400 Body mass index (BMI) [Ratio]43.5 kg/z9QvdkeoojqKettering Health [facility] 06-08-2024 13:47-0400Body vnauyj256.26 cmK[facility] 06-08-2024 13:47-0400Body hwgppoycgkt64 [degF][facility] 06-08-2024 13:47-0400Body nmwieh215.8 kgK[facility]tering [facility] 06-08-2024 13:47-0400Diastolic blood qsgyickr27 mm[Hg][facility]10-01-2024 13:47-0400Heart rate93 /[facility] 06-08-2024 13:47-0400Respiratory rate18 /minKettering Health [facility] 06-08-2024 13:47-7525CxD8% (BldA) [Mass fraction]92 %[facility]10-01-2024 13:47-0400Systolic blood mmzflyst097 mm[Hg][facility]04-16-2024 13:53-0400Body .26 cmKettering Health [facility]04-16-2024 13:53-0400Body mass index (BMI) [Ratio]43.8 kg/m2 [facility]04-16-2024 13:53-0400Body etxjiyxnjon31.9 [degF][facility]04-16-2024 13:53-0400Body dewleq946.71 kg [facility]04-16-2024 13:53-0400Diastolic blood ufhdhrnh26 mm[Hg][facility]04-16-2024 13:53-0400Heart rate91 /min [facility]04-16-2024 13:53-0400Respiratory rate20 /min [facility]04-16-2024 13:53-0013DpU1% (BldA) [Mass fraction]97 %[facility]04-16-2024 13:53-0400Systolic blood wwzcahlv731 mm[Hg][facility]09-19-2023 13:00-0400 Body gqzhog198.26 cmAgerriedmond Mendoza Other [employer] Other 09-19-2023 13:00-0400Body mass index (BMI) [Ratio] 41.93 kg/m2Abhliashtram [employer]rosemary Other [employer] Other 09-19-2023 13:00-0400Body kpqudebmfxk96.8 [degF]Abhilashtram [employer] Other [employer] Other 09-19-2023 13:00-0400Body dbacls878.82 kgAztram Mendoza Other [employer] Other 09-19-2023 13:00-0400Diastolic blood mm[Hg] Aztram Das Other [employer] Other 09-19-2023 13:00-0400Respiratory rate20 /minDedra Darosemary Other [employer] Other 09-19-2023 13:00-1375PiD1% (BldA) [Mass fraction]96 % Abhilashtram Darosemary Other [place] [employer] Other 09-19-2023 13:00-0400Systolic blood zonkquoe421 mm[Hg] Abhilashtram Darosemary Other [employer] Other 04-04-2023 15:00-0400Body .26 cmAgerriedmond Mendoza Other [employer] Other 04-04-2023 15:00-0400Body mass index (BMI) [Ratio] 39.75 kg/m2Dedra Darosemary Other [employer] Other 04-04-2023 15:00-0400Body onmbpyvtvsc23.7 [degF]Abhilashtram Das Other [employer] Other 04-04-2023 15:00-0400Body uxxkpb051.11 kgAztram Das Other [employer] Other 04-04-2023 15:00-0400Diastolic blood lguxzjpy55 mm[Hg] Aztram Darosemary Other [employer] Other 04-04-2023 15:00-0400Respiratory rate20 /minDedra oKevangelinarosemary Other [employer] Other 04-04-2023 15:00-4525NzI7% (BldA) [Mass fraction]95 % Abhilashtram Darosemary Other [employer] Other 04-04-2023 15:00-0400Systolic blood gczhikug020 mm[Hg] Dedra Darosemary Other [employer] Other 01-10-2023 11:00-0500Body yxlnrj623.26 cmAgerriedmond Robersonrosemary Other [employer] Other 01-10-2023 11:00-0500Body mass index (BMI) [Ratio] 39.54 kg/m2Dedra Darosemary Other [employer] Other 01-10-2023 11:00-0500Body sakdirbpapw13.2 [degF]Dedra Koevangelinarosemary Other [employer] Other 01-10-2023 11:00-0500Body busbso263.47 kgDedra Koevangelinas Other [employer] Other 01-10-2023 11:00-0500Diastolic blood mm[Hg] Dedra Das Other [employer] Other 01-10-2023 11:00-0500Respiratory rate20 /minDedra Mendoza Other [facility] [employer] Other 01-10-2023 11:00-0747NgX1% (BldA) [Mass fraction]97 % Dedra Mendoza Other [facility] [employer] Other 01-10-2023 11:00-0500Systolic blood mexwpjdg396 mm[Hg] Dedra Mendoza Other [facility] [employer] Other [id number] 17:43-0400Diastolic blood ybbpdkcc52 mm[Hg] MD Cullen Costa Work Phone: [phone]10-20-2022 17:43-0400 Heart rate78 /minMD Cullen Costa Work Phone: [phone]10-20-2022 17:43-0400 Respiratory rate20 /minMD Cullen Costa Work Phone: [phone] [place], [place] [address]10-20-2022 17:43-0400 SaO2% (BldA) [Mass fraction]95 %MD Cullen Costa Work Phone: [phone]10-20-2022 17:43-0400 Systolic blood mm[Hg]MD Cullen Costa Work Phone: [phone]10-20-2022 14:32-0400 Body .64 cmMD Cullen Costa Work Phone: [phone]10-20-2022 14:32-0400 Body tpkmijehggq67.8 [degF]MD Cullen Costa Work Phone: [phone]10-20-2022 14:32-0400 Body aqgjuz136.02 kgMD Cullen Costa Work Phone: [phone] Encounters Encounter DateEncounter TypeCare ProviderFacilityStart: 23-59-3196gcbcdeuwwu SCOUT GRPAULniCherrington Hospitaltart: 06-24-2025 End: 18-72-9215ufwfminibzRECPWH MOUKASy[facility]ore [facility] Center Start: 06-21-2025 End: 95-42-4981wcnzwhwuxsMkwncx E Braun MD Work Phone: [facility] Work Phone: Start: 06-21-2025 End: 06-34-6481Kccmewz encounter procedureDedra Mendoza MD-[facility] Lukasz Work Phone: Start: 03-95-8948Wwo-patient / Non-visitDedra Mendoza MD-[facility] Work Phone: Start: 06-14-2025 End: 51-16-7185fxgnvpwrxuNBXNUniversity Hospitals Portage Medical Centertart: 53-12-6338Oflsvfj encounter Mark Costa MD [facility] 04-07-2025 End: 62-29-2270qanlmvkscjNhilij E Braun MD Work Phone: [facility] Work Phone: Start: 04-07-2025 End: 52-85-4111Wfahjqx encounter Mark Costa MD-[facility] Work Phone: Start: 08-08-2282ziliiwlafaCRYWVan Wert County Hospitaltart: 02-15-2025 End: 68-52-8328ogyzzwjmhrSbjqwrlrkMorrow County Hospital Work Phone: Start: 02-15-2025 End: 24-39-9992Hrldhgq encounter procedureErnesto Physician Group-[facility] Nephrology Lukasz Work Phone: Start: 81-44-8007Rbz-patient / Non-visitErnesto Physician Group-[facility] Work Phone: Start: 10-65-4300ajlbjpegwvOLZQNorwalk Memorial Hospitaltart: 10-75-8815Rwa-patient / Non-visitFirelands Physician Group-[facility] Work Phone: Start: 01-03-2025 End: 42-39-3833onypyvfwstINSDTF MOUKARBELAdena Regional Medical Center Start: 12-28-2024 End: 07-11-1902tfgyactusxKMVENorwalk Memorial Hospitaltart: 10-12-2024 End: 33-87-2482jrwrnwrqelQmhpqdwcwParma Community [facility] Work Phone: Start: 10-12-2024 End: 55-44-5324Zxjdebv encounter procedureHarris Regional Hospital [facility] Nephrology Lukasz Work Phone: Start: 83-68-2075Jjp-patient / Non-visitFirclines cornerss [facility]ician [facility] Work Phone: Start: 70-89-7759Pui-patient / Non-visitFirelands Physician Group-[facility] Work Phone: Start: 08-03-2024 End: 91-65-8634xrjbieuoyjBKBMNorwalk Memorial Hospitaltart: 06-08-2024 End: 36-71-1307boubcsmykvZpbxytxpaParma Community General Hospital Work Phone: Start: 06-08-2024 End: 79-14-4305Xyidkvx encounter procedureHarris Regional Hospital [facility] Neph[facility] Lukasz Work Phone: Start: 82-35-3661Nrk-patient / Non-visitFirelands Physician Group-[facility] Work Phone: Start: 35-77-6177Vef-patient / Non-visitFirelands Physician Group-[facility] Work Phone: Start: 12-23-2023 End: 72-29-5991nrabdqrfufUucswbibmParma Community [facility] Hospital Work Phone: start: 12-23-2023 End: 31-38-3690Kzruypa encounter procedureHarris Regional Hospital [facility] Ne[facility] Lukasz Work Phone: Start: 32-99-2865Iwa-patient / Non-visitHarris Regional Hospital [facility] Work Phone: Start: 06-09-2023 End: 15-26-4670bopfwathpgZyhktk Costa Other nonextsocial Other Start: 11-49-0800Gzzrimvdj encounterMarcia BraunProMedica Fostoria Community Hospital ClinicStart: 05-27-2023 End: 16-01-6701jvztwkdnqeApom Bakhous Other nonextsocial Other Start: 27-43-9852Sdmrwm outpatient visit 25 minutes Aziz BakhousFPG Nephrology ClydeStart: 05-20-2023 End: 56-34-9408wcyzuzlyhtKysdgc Costa Other nonextsocial Other Start: 36-85-2265Szkncpfjg encounterMarcia BraunProMedica Fostoria [facility] ClinicStart: 12-10-2022 End: 32-63-6047yfxjwjyouhJhvp Bakhous Other nonextsocial Other Start: 34-99-0090Fjniea outpatient visit 25 minutes Aziz BakhousFPG Nephrology ClydeStart: 12-03-2022 End: 85-59-1985exhxkqivpeINPR BAKHOUSFacility:W7Foyzv: 11-27-2022 End: 63-07-5469uhkccxamkvWMHO BAKHOUSFacility:V5Efyyf: 09-17-2022 End: 86-07-8511mjtttkhdbhBacn Bakhous Other nonextsocial Other Start: 02-88-2788Mipxla outpatient new 30 minutesAziz BakhousFPG Nephrology ClydeStart: 07-25-2022 End: 29-84-0089svkvwvmyzmPE EHAB ELTAHAWYFacility:G7Rmusi: 07-10-2022 End: 76-10-5896bapqjilxueUL TIGIST Pendleton NADERERFacility:I8Csvth: 06-27-2022 End: 07-45-7039Opvyrknnn department patient visitMarlyekta Felton Igor [facility]: 06-27-2022 End: 53-20-2863Rlzdzpyaa department patient visitMD Cullen Costa Work Phone: [facility]-Emergency RoomStart: 06-24-2022 End: 64-12-6057apywmuinmuZXAL CHACKOFacility:E2Vfwrl: 25-50-5003cleafutkozBCDWA D HIGHLANDERFacility:K9Pqcon: 04-26-2022 End: 83-79-3107djonjlsspqDAECBD BRAUNFacility:[facility] FACILITYtart: 04-25-2022 End: 90-11-4789Rsamlutugq and management of inpatientMUHAMMAD ALIFacility:[facility] Start: 04-24-2022 End: 16-96-2986ojvncbsrrrLGSNIDY Hardik KATKOFacility:Q8Pymbl: 04-22-2022 End: 28-77-7857sgbksoqybiHKQWBMI LOUIEFacility:J1Mwunt: 04-15-2022 End: 30-87-0038kdjguvlhvnBC LI PICKENSELFacility:N2Dhadz: 04-04-2022 End: 14-92-0446mpeukhpjrnSWGDT D HIGHLANDERFacility:Z2Vshtk: 04-02-2022 End: 63-99-5711urlrkhptxiWU LI PICKENSELFacility:N5Bogtm: 04-01-2022 End: 93-83-3490dlyycrbodbII WALE KleinFacility:P2Ayfef: 03-12-2022 End: 02-27-5781twxyrsuptjZEIYF D HIGHLANDERFacility:U2Ywgty: 02-14-2022 End: 45-19-2883ogwhgswdiuBHGEO D HIGHLANDERFacility:E0Qnpsg: 01-16-2022 End: 54-83-3345wukvuatpkaAAEPG D HIGHLANDERFacility:L9Awzhm: 01-07-2022 End: 48-67-0061fwneenylmgBZUUK D HIGHLANDERFacility:G2Hojtc: 01-03-2022 ambulatoryDR LI HUTCHISONUKARBELFacility:H9Dkkus: 12-24-2021 End: 45-40-8727ubegctbdsnGEYRSQR O CLOUGHERTYFacility:Z9Yizmm: 12-19-2021 ambulatoryDR ZE Moraes WESTFacility:V9Kmzfh: 12-13-2021 End: 17-28-6024Chnnoghpub and management of inpatientDR TIGIST IGLESIAS Facility:K3Tadlk: 12-11-2021 End: 31-58-8150xmwacjhhjxVAUYBSN O CLOUGHERTYFacility:I3Ijbdi: 07-31-2021 End: 01-45-8094Qdglmvbvhj and management of inpatientREFERRED SELFFacility:[facility] Procedures DateProcedureProcedure DetailPerforming ClinicianStart: 24-67-6790Elireu-up visitFollow-upPAUL CHACKOStart: 71-69-3218Nsysb chest X-rayMD Cullen Costa Work Phone: Start: 53-25-6775Lgpcnjrvi of Infusion Device into Upper Vein, Percutaneous ApproachAZIZ BAKHOUSStart: 92-69-0023Wbbvfup examination of patientMarciekta Costa Other SARS Antigen (LFIA)MD Cullen Costa Work Phone: Plan of Treatment DateCare ActivityDetailAuthorStart: 36-74-6314Bczjay scan of lower limb veinsUS venous duplex LE [facility] Centertart: 15-05-9366RZ Lower extremity vein - bilateralKettering Health MiamisburgBacteria identified in Blood by CultureKettering Health MiamisburgPatient EducationCellulitis (Skin Infection), Adult (DC)[facility] Work Phone: Patient referralZanesville City Hospital Ctr Work Phone: Renal function 2000 panel - Serum or PlasmaKettering Health MiamisburgRenal function 1999 panel - Serum or PlasmaKettering Health MiamisburgRenal function 1999 panel - Serum or PlasmaKettering Health MiamisburgRenal function 1999 panel - Serum or PlasmaKettering Health MiamisburgRenal function 1999 panel - Serum or PlasmaHudson [facility] and [facility] Payers DatePayer CategoryPayerPolicy [id number] [id number] 1960 [id number] 2.0.1.467696.3.57[id number] 2..1.983952.3.57[id number] 2..1.791822.3.57[id number] 2.0.1.749446.3.579.[id number] 2.0.1.022427.3.57[id number] 2.0.1.178816.3.579.[id number] 2.0.1.879669.3.579.2.15443-31-2410Xqfdulz8675539 2.840.1.083117.3.579.[id number] 2.840.1.227070.3.579.[id number] 2.16.840.1.715838.3.57[id number] 2.16.840.1.391571.3.579.[id number] 2.16.840.1.064086.3.579.[id number] 2.16.840.1.885453.3.579.[id number] 2.16.840.1.468927.3.579.[id number] 2.16.840.1.211385.3.57[id number] 2..840.1.239923.3.579.[id number] 2.16.840.1.606474.3.579.[id number] 2..840.1.219241.3.579.[id number] 2..840.1.198369.3.579.2.00478-81-6243Bwnfesy1072569 2..840.1.421765.3.57[id number] 2.16.840.1.532318.3.579.[id number] 2.16.840.1.885306.3.579.2.79853-99-7561Wueykuf5075398 2.16.840.1.667652.3.579.2.49643-70-0247Ftuixtc1015460 2.16.840.1.603784.3.579.2.74892-75-7441Gwdspti3293125 2.16.840.1.6314[id number] 2.16.840.1.157212.3.579.2.531 [id number] q9y44bq7-973v-8nvu-5ag9-zp83639909k2 Social History DateTypeDetailFacilityStart: 06-27-2022 End: 45-41-2059Tgknizw smoking status NHISNever smoked tobacco (finding) [facility]: 87-40-3891Cze [facility] At [facility]ere[facility] At [facility]ex Assigned At [facility] Gengo Other Start: 10-12-2024 End: 08-04-0191NwnFlrs (finding)[facility] Clinical Notes 08-02-2021 to 06-24-2025 Note Date & SymmMmheDejkwhgj28-48-3348 NoteUT Cardiology - [facility] Subjective Man Patel is a 75 y.o. year old male patient being seen for 6 month follow up systolic heart failure, afib/flutter, and CAD. Had labs and device check last week, and echo back in January 2025. Denies chest pain, SOB, palpitations, and bleeding on Eliquis. Family History Problem Relation Name Age of Onset Coronary artery disease Mother Hyperlipidemia Mother Hypertension Mother Stroke Mother Diabetes Mother Coronary artery disease Father Hyperlipidemia Father Hypertension Father Social History Tobacco Use Smoking status: Never Smokeless tobacco: Never Substance Use Topics Alcohol use: Never Drug use: Never HPI Man is seen in follow up. 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 He was scheduled for the procedure but did not want to proceed with that. Today he reports that he has no angina. He has mild shortness of breath on exertion NYHA class II but none at rest. He has mild lower extremity swelling. He is not very ambulatory at all. Review of Systems Cardiovascular: Positive for dyspnea on exertion. Skin: Positive for color change and dry skin. Musculoskeletal: Positive for muscle weakness. Neurological: Positive for weakness. All other systems reviewed and are negative. Objective Visit Vitals BP 126/66 (BP Location: Left arm, Patient Position: Sitting) Pulse 60 Ht 1.676 m (5' 6 ) Wt (!) 137 kg (302 lb 0.5 oz) SpO2 96% BMI 48.75 kg/m??? Smoking Status Never BSA 2.53 m??? Physical Exam Constitutional: Appearance: He is [...] mg tablet, Take 1 tablet (10 mg) b (more content not included)...[facility]07-31-2025 Evaluation note* Diagnosis Onset Date Resolution Status Admit Date Hypertensive nephropathy acuteJuly 2024 9:33amKidney disease, chronic, stage IV (GFR 15-29 ml/min) acuteJuly 2024 9:33amMedicare annual wellness visit, subsequentacuteJuly 2024 9:33amPresence of permanent cardiac pacemakeracuteJuly 2024 9:33amSevere obesity (BMI >= 40)acuteJuly 2024 9:33amSystolic congestive heart failureacuteJuly 2024 9:33amAnemia of renal diseaseacuteOctober 2024 2:56pmHyperparathyroidismacuteOctober 2024 2:56pmHypertensive nephropathyacuteOctober 2024 2:56pmHyperuricemiaacuteOctober 2024 2:56pmKidney disease, chronic, stage IV (GFR 15-29 ml/min)acuteOctober 2024 2:56pmPresence of permanent cardiac pacemakeracuteOctober 2024 2:56pm Renal cyst, acquiredacuteOctober 2024 2:56pmSevere obesity (BMI >= 40) acuteOctober 2024 2:56pmSystolic congestive heart failureacuteOctober 2024 2:56pmVitamin D deficiencyacuteOctober 2024 2:56pm [facility] Work Phone: 1(372) 504-123706-10-2025 Evaluation note* Diagnosis Onset Date Resolution Status Admit Date Anemia of renal disease acuteJune 2024 1:38pmHyperparathyroidismacuteJune 2024 1:38pm Hypertensive nephropathyacuteJun2024 1:38pmHyperuricemiaacuteJune 2024 1:38pmKidney disease, chronic, stage IV (GFR 15-29 ml/min)acuteJun2024 1:38pmPresence of permanent cardiac pacemakeracuteJun2024 1:38pm Renal cyst, acquiredacuteJun2024 1:38pmSevere obesity (BMI >= 40)acute February 15, 2025 1:38pmSystolic congestive heart failureacuteJun2024 1:38pmVitamin D deficiencyacuteJun2024 1:38pm [facility] Work Phone: 1(483) 822-259604-28-2025 NoteUT Cardiology - [facility] Subjective Man Patel is a 74 y.o. 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 He was [...] 270 tablet, Rfl (more content not included)... [facility]11-26-2024 NoteUT Electrophysiology Consult Note [place] [facility] Reason for visit: CMP HPI: [...] on file Intimate Partner Violence: Unknown (10/30/2023) [place] Safety & Environment Fear of Current or [...] normal jugular venous pressure (more content not included)...[facility]09-19-2023 Evaluation note* Encounter Date Diagnosis Assessment Notes [...] will follow-up with the patient 3-4 months May,rimary hypertension (ICD-10 - I10)Blood pressure medications admitted directed toward CHF. Blood pressure is well controlled edema is stable Advised low Na diet to avoid CHF exacerbation and to keep BP at target range May,Systolic congestive heart failure, unspecified HF chronicity (ICD-10 - I50.20)Patient follows with cardiology clinic in [facility] every 3 months. Has had seems compensating.Patient on spironolactone and Bumex. Patient follows low-salt diet ad weighs himself every day. May,resence of permanent cardiac pacemaker (ICD-10 - Z95.0)Patient has history of complete heart block status post permanent pacemaker with defibrillator placement in 2020. And Eliquis and amiodarone in addition to metoprolol. Follows with cardiology clinic May,Vitamin D deficiency (ICD-10 - E55.9)25-hydroxy vitamin D is still low.Will start cholecal 2000 U daily May,Hyperparathyroidism (ICD-10 - E21.3)PTH was slightly high last visit. Likely from vitamin D deficiency. I will replace vitamin D first and recheck PTH level next visit May,Hyperuricemia (ICD-10 - E79.0)Uric acid is 10.0. will start allopurinl. May,Renal cyst, acquired (ICD-10 - N28.1)Renal ultrasound shows left side nonobstructive nephrolithiasis along with bilateral renal corticalsimple cysts. Largest measures in the left 2.4 cm in the right 4.2 cm [facility] Other 04-04-2023 Evaluation note* Encounter Date Diagnosis [...] will follow-up with the patient 3-4 months Dec,rimary hypertension (ICD-10 - I10)Blood pressure medications admitted directed toward CHF. Blood pressure is well controlled Dec,Systolic congestive heart failure, unspecified HF chronicity (ICD-10 - I50.20)Patient follows with cardiology clinic in [facility] every 3 months. Has had seems compensating.Patient on spironolactone and Bumex. Patient follows low-salt diet hours himself every day. Dec,resence of permanent cardiac pacemaker (ICD-10 - Z95.0)Patient has history of complete heart block status post permanent pacemaker with defibrillator placement in 2020. And Eliquis and amiodarone in addition to metoprolol. Follows with cardiology clinic Dec,Vitamin D deficiency (ICD-10 - E55.9)25-hydroxy vitamin D is low. As the patient take wnpy-yao-zwqdzmf vitamin D supplement 2000 unit daily Dec,Hyperparathyroidism (ICD-10 - E21.3)PTH slightly at 66. Likely from vitamin D deficiency. I will replace vitamin D first and recheck PTH level next visit Dec,Hyperuricemia (ICD-10 - E79.0)Uric acid slightly high at 9.0 advised the patient to follow low animal protein diet. No gout attack. I will recheck uric acid next visit Dec,Renal cyst, acquired (ICD-10 - N28.1)Renal ultrasound shows left side nonobstructive nephrolithiasis along with bilateral renal corticalsimple cysts. Largest measures in the left 2.4 cm in the right 4.2 cm [facility] Other 01-10-2023 Evaluation note* Encounter Date Diagnosis [...] on diuretics. I will follow-up with the patientin 2 months. I will check UA along [...] will follow-up with the patient 2 months Sep,rimary hypertension (ICD-10 - I10)Blood pressure medications admitted directed toward CHF. Blood pressure is well controlled Sep,Systolic congestive heart failure, unspecified HF chronicity (ICD-10 - I50.20)Patient follows with cardiology clinic in [facility] every 3 months. Has had seems compensating.Patient on spironolactone and Bumex. Patient follows low-salt diet hours himself every day. Sep,resence of permanent cardiac pacemaker (ICD-10 - Z95.0)Patient has history of complete heart block status post permanent pacemaker with defibrillator placement in 2020. And Eliquis and amiodarone in addition to metoprolol. Follows with cardiology clinic [facility] Other 08-30-2022 NoteMR#: [id number] I [facility] Pt. Name: Man Patel Admitted: [...] x2 on 04/29 and 05/03, insertion of Clarence-Eleazar catheter and removal, and echocardiogram. CONSULTATIONS: Included Cardiology, Nephrology, vascular service and medical ICU. HOSPITAL COURSE: This patient is a 72-year-old male, who presents to the [facility] as a transfer from [facility] with complaints of worsening shortness of breath and weeping edema. The patient was accepted for transfer by the [facility] Cardiology Service for failed outpatient [...] low-cholesterol diet with (more content not included)...[facility]11-25-2021 NoteMR#: [id number] I [facility] Pt. Name: Man Patel Admitted: [...] fraction, who initially presented to [facility] for bradycardia. He was having syncopal episodes, where he was found to have heart rate in the 30s. Atropine was given at [place] without any help. His blood pressure was stable at that time and was transferred to [facility]. On arrival, his EKG revealed complete heart [...] and followup as an outpatient close to [place] where the patient is from and interested [...] physician, Dr. Costa, in 1 week at [facility]. 2. Follow up with [facility] Heart on 08/10/2021 for wound/pacemaker check at 11:20 a.m. 3. Follow up with [facility] Cardiovascular on 09/04/2021 at 2:[address] [place] [address] Cintron. 4. Follow up with Nephrology around [place]. TIME SPENT: Time spent for the discharge [...] Johnson CNP Date Trans: 08/02/2021 05:18 P/surekha [id number] [facility] CenterEvaluation noteNo assessment information availableFirelands Regional Medical Ctr Work Phone: Evaluation noteNo InformationNortHoly Redeemer Hospital [facility] Other Evaluation note* Diagnosis Onset Date Resolution Status Hyperparathyroidism acuteHypertensive nephropathyacuteHyperuricemiaacuteKidney disease, chronic, stage IV (GFR 15-29 ml/min)acutePresence of permanent cardiac pacemakeracute Renal cyst, acquiredacuteSystolic congestive heart failureacuteVitamin D deficiencyacute [facility] Work Phone: Evaluation note* Diagnosis Onset Date Resolution Status Admit Date Anemia of renal disease acuteFebruary 2024 3:11pmHyperparathyroidismacuteFebruary 2024 3:11pm Hypertensive nephropathyacuteFebruary 2024 3:11pmHyperuricemiaacuteFebruary 2024 3:11pmKidney disease, chronic, stage IV (GFR 15-29 ml/min)acute October 12, 2024 3:11pmPresence of permanent cardiac pacemakeracuteFebruary 2024 3:11pmRenal cyst, acquiredacuteFebruary 2024 3:11pmSevere obesity (BMI >= 40)acuteFebruary 2024 3:11pmSystolic congestive heart failureacute October 12, 2024 3:11pmVitamin D deficiencyacuteFebruary 2024 3:11pm [facility] Work Phone: Evaluation note* Diagnosis Onset Date Resolution Status Admit Date Anemia of renal disease acuteJun2024 1:38pmHyperparathyroidismacuteJune 2024 1:38pm Hypertensive nephropathyacuteJune 2024 1:38pmHyperuricemiaacuteJune 2024 1:38pmKidney disease, chronic, stage IV (GFR 15-29 ml/min)acuteFebruary 15, 2025 1:38pmPresence of permanent cardiac pacemakeracuteJune 2024 1:38pm Renal cyst, acquiredacuteJune 2024 1:38pmSevere obesity (BMI >= 40)acute February 15, 2025 1:38pmSystolic congestive heart failureacuteFebruary 15, 2025 1:38pmVitamin D deficiencyacuteJune 2024 1:38pm [facility] Work Phone: History general Narrative - Reported* Type Description Date Medical History varicose veins Medical HistoryHypertensionMedical HistoryobesityMedical Historythrombophlebitis Medical Historypossible DVTMedical HistoryCADMedical HistoryACUTE HYPOXIC RESPIRATORY FAILURESurgical Historytriple orcasb12/1999Hospitalization History bypassHospitalization BskdopsEKYIPW63/22Hospitalization HistoryEDEMIA04/2022 [facility] Other History general Narrative - Reported* Type Description Date Medical History varicose veins Medical HistoryHypertensionMedical HistoryobesityMedical Historythrombophlebitis Medical Historypossible DVTMedical HistoryCADMedical HistoryACUTE HYPOXIC RESPIRATORY FAILURESurgical Historytriple yoqsls47/2000Hospitalization History bypassHospitalization MgoqvkaHSYTP89/22Hospitalization HistoryEDEMA04/2022 [facility] Other Hospital Discharge instructions Additional Instructions Take antibiotics as instructed until gone Elevate lower extremities You have blood cultures pending Follow-up with home care your primary care doctor call tomorrow for appointment Return here if any problems persist or worsen including fever, chills, increased redness, increased swelling or any other concernA[facility] Work Phone: Reason for referral (narrative)No reason for referral information availableFostoria City Hospital Work Phone: Summary Purpose Family History No Family History Records Found Relationship Condition Age at Onset Recorded Date/T harshad brother Diabetes mellitus Unknown Heart diseaseUnknownHypertensionUnknownfatherDeceasedUnknownfamily member DeceasedUnknownNot SpecifiedDeceasedUnknownDiabetes mellitusUnknownsisterHeart diseaseUnknown Relationship Condition Age at Onset Recorded Date/T harshad brother Diabetes mellitus Unknown Heart diseaseUnknownHypertensionUnknownfatherDeceasedUnknownfamily member DeceasedUnknownmotherDeceasedUnknownDiabetes mellitusUnknownsisterHeart disease Unknown Advance Directives No Advanced Directives [...] 4 MONTHS February 15, 2025 1:38 pm Chief Complaint Admit Date wellness April 07, 2025 9:33 am renal 4 month f/u June 21, 2025 2 :56pm Reason for Visit Admit Date Hypertensive nephropathy April 07, 2025 9:33am Kidney disease, chronic, stage IV (GFR 1 5-29 ml/min) April 07, 2025 9:33am Medicare annual wellness visit, subseque nt April 07, 2025 9:33am Presence of permanent cardiac pacemaker April 07, 2025 9:33am Severe obesity (BMI >= 40) April 07 9:33am Systolic congestive heart failure March 102024 9:33am Anemia of renal disease June 21 2:56pm Hyperparathyroidism June 21, 2025 2 :56pm Hypertensive nephropathy June 21, 025 2:56pm Hyperuricemia June 21, 2025 2 :56pm Kidney disease, chronic, stage IV (GFR 1 5-29 ml/min) June 21, 2025 2:56pm Presence of permanent cardiac pacemaker June 21, 2025 2:56pm Renal cyst, acquired June 21, 2025 2:56pm Severe obesity (BMI >= 40) June 21, 2025 2:56pm Systolic congestive heart failure Octobe r 2024 2:56pm Vitamin D deficiency June 21, 2025 2:56pm Additional Source Comments (unrecognized sect ion and content) No Status Records FoundNo Status Records FoundNo Status Records FoundNo Status Records Found INFORMATION SOURCE (unrecogn ized section and content) DATE CREATED AUTHOR 05/15/2022 [facility] DATE CREATED AUTHOR AUTHOR'S ORGANIZ ATION 07/05/2022 [facility] DATE CREATED AUTHOR AUTHOR'S ORGANIZ ATION 12/11/2022 [facility] DATE CREATED AUTHOR AUTHOR'S ORGANIZ ATION 07/02/2025 [facility] Care Teams (unrecognized sec tion and content) Team Status: Active Member Role Status Dates Cullen Costa MD Primary Care Provider Active Team Status: Inactive Member Role Status Dates Cullen Costa MD Primary Care Provider Active Start: April 07, 2025 End: April 07, 2025Cullen Costa , MDAttending ProviderActiveStart: April 07, 2025 End: April 07, 2025 Team Status: Active Member Role Status Dates Cullen Costa MD Primary Care Provider Active Start: June 16, 2025 Dedra Mendoza , MDAttending ProviderActiveStart: June 16, 2025 Team Status: Inactive Member Role Status Dates Cullen Costa MD Primary Care Provider Active Start: June 21, 2025 End: June 21kimani Robersons , MDAttending ProviderActiveStart: June 21, 2025 End: June 21, 2025 Team Status: Inactive Member Role Status Dates Cullen Costa MD Primary Care Provider Active Annie Dos Santos ProviderActive Team Status: Active Member Role Status Dates Cullen Costa MD Primary Care Provider Active Start: December 17, 2023 Dedra Mendoza , MDAttending ProviderActiveStart: December 17, 2023 Team Status: Inactive Member Role Status Dates Cullen Costa MD Primary Care Provider Active Start: December 23, 2023 End: December 22kimani Mendoza , MDAttending ProviderActiveStart: December 23, 2023 End: December 23, 2023 Team Status: Active Member Role Status Dates Cullen Costa MD Primary Care Provider Active Start: April 30, 2024 Li Cintron MDAttending ProviderActiveStart: April 30, 2024 Team Status: Active Member Role Status Dates Cullen Costa MD Primary Care Provider Active Start: June 02, 2024 Dedra Mendoza , MDAttending ProviderActiveStart: June 02, 2024 Team Status: Inactive Member Role Status Dates Cullen Costa MD Primary Care Provider Active Start: June 08, 2024 End: June 08kimani Mendoza , MDAttending ProviderActiveStart: June 08, 2024 End: June 08, 2024 Team Status: Active Member Role Status Dates Cullen Costa MD Primary Care Provide r, Attending Provider Active Start: September 15, 2024 Team Status: Active Member Role Status Dates Cullen Costa MD Primary Care Provider Active Start: October 08, 2024 Dedra Mendoza , MDAttending ProviderActiveStart: October 08, 2024 Team Status: Inactive Member Role Status Dates Cullen Costa MD Primary Care Provider Active Start: October 12, 2024 End: October 12kimani Mendoza Shanna ProviderActiveStart: October 12, 2024 End: October 12, 2024 Team Status: Active Member Role Status Dates Cullen Costa MD Primary Care Provider Active Start: January 03, 2025 Li Hutchisonnichomary SHANEmasoodending ProviderActiveStart: January 03, 2025 Team Status: Active Member Role Status Dates Cullen Costa MD Primary Care Provider Active Start: February 09, 2025 Dedra Mendoza Teresaending ProviderActiveStart: February 09, 2025 Team Status: Inactive Member Role Status Dates Cullen Costa MD Primary Care Provider Active Start: February 15, 2025 End: February 15kimani Mendoza Teresaending ProviderActiveStart: February 15, 2025 End: February 15, 2025 Goals (unrecognized section and content) Goals [...] BE BASED ON THE PRIMARY CLINICAL RECORDS. [employer] [facility]. provides no warranty or guarantee of the accuracy or completeness of information in this document.
[2025-09-06 10:43] LABS: Hematocrit 45.0 % (42.0-54.0); Hemoglobin 14.6 g/dL (14.0-18.0); Mean Corpuscular HGB Conc 32.4 g/dL (29.9-35.2); Mean Corpuscular Hemoglobin 29.9 pg (25.9-34.0); Mean Corpuscular Volume 92.2 fL (80.0-94.0); Platelet Count 160 10^3/uL (150-450); Red Blood Count 4.88 10^6/uL (4.70-6.10); White Blood Count 7.3 10^3/uL (4.0-11.0)
[2025-09-06 10:50] LABS: Microalbum Creatinine Ratio Ur 42.1 mg/g (0.0-29.9)
[2025-09-06 10:53] LABS: Albumin Level 3.6 g/dL (3.4-5.0); Anion Gap 12.7; Blood Urea Nitrogen 43.0 mg/dL (7.0-18.0); Calcium 9.1 mg/dL (8.5-10.1); Carbon Dioxide 28.5 mmol/L (21.0-32.0); Chloride 101 mmol/L (98-107); Estimated GFR (African America 34 (>=60 mL/min/1.73m^2); Estimated GFR (Non-African Ame 28 (>=60 mL/min/1.73m^2); Glucose 141 mg/dL (74-106); Magnesium 2.3 mg/dL (1.8-2.4); Potassium 4.2 mmol/L (3.5-5.1); Sodium 138 mmol/L (136-145); Uric Acid 7.4 mg/dL (3.5-7.2)
== END 2025-09-06 10:00 | disposition home or self-care (01) ==
LOC: LAB 10:02
PROVIDERS: PCP Family Medicine; Visit Provider Internal Medicine Nephrology
DX: E66.01 Morbid (severe) obesity due to excess calories (principal); N18.9 Chronic kidney disease, unspecified; D63.1 Anemia in chronic kidney disease; N28.1 Cyst of kidney, acquired; E79.0 Hyperuricemia without signs of inflammatory arthritis and tophaceous disease; E21.3 Hyperparathyroidism, unspecified
CPT/HCPCS: 36415; 80069; 82043; 82306; 82570; 83735; 83970; 84550; 85027